=== PATIENT | female | born 1950 | race Caucasian/White ===

== ENCOUNTER 2019-10-13 14:04 | Outpatient (CLI) | payer MEDICARE, SELFPAY ==
--- NOTE | ~2019-10-13 | MM_ITS ---
EXAMINATION: MM screening [facility] BI w milan HISTORY: Screening mammogram TECHNIQUE: Craniocaudal and mediolateral oblique 3-D tomosynthesis images were obtained and synthetic 2-D images were generated. CAD analysis was submitted and interpreted. COMPARISON: 10/07/2018, 09/10/2017, 03/26/2007 BREAST PARENCHYMAL COMPOSITION: There are scattered areas of fibroglandular density. FINDINGS: There is no evidence of suspicious mass, calcification, or architectural distortion to sugg est malignancy in either breast. There has been no suspicious interval change. IMPRESSION: 1. No mammographic evidence of malignancy. 2. Recommend routine screening mammography in one year. BI-RADS Category 1: Negative Reviewed, dictated and finalized at location A.
== END 2019-10-13 14:05 | disposition home or self-care (01) ==
LOC: ANHIMG 14:09
PROVIDERS: PCP Family Medicine; Visit Provider Family Medicine
DX: Z12.31 Encounter for screening mammogram for malignant neoplasm of breast (principal)
CPT/HCPCS: 77063; 77067

== ENCOUNTER 2019-11-16 14:48 | Outpatient (RCR) | payer MEDICARE, SELFPAY ==
--- NOTE | 2019-11-16 16:07 | PTOPEVAL ---
PHYSICAL THERAPY EVALUATION AND PLAN OF CARE 11-16-2019 The PT evaluation was completed for the diagnosis of vertigo. Treatment was given for anterior canal BPPV and education provided to her. Discussed treatment plan with Kandace. She decided to call if additional therapy is needed. She was issued the number to call if she has any questions that can be addressed on the phone. Or, to call if additional appointments for treatment is needed. Thank you for referring Kandace Cole to [facility].? The plan of treatment is 0-2?x/week for 4 weeks, with re-assessment and treatment of her vestibular system as indicated. Please review, sign, date and return this plan of care MARLEE. I agree with and certify that the following plan of care is medically necessary. Referring Physician Date Attending Provider: Jon Alonzo NP *PT Outpatient Evaluation Start: 11/16/19 15:08 Document 11/16/19 15:00 DREA (Rec: 11/16/19 16:07 DREA [id number]) Therapy Assessment Status Assessment Status Assessment Status Evaluation Outpatient Past Medical History Past Medical History Source of Past Medical History Patient Neurological History Hx Migraine Yes: since Botox injections 2 yr ago, have decr & only had 1 Cardiovascular History Hx Hypertension Yes: meds Hx Other Cardiac Disorders Yes: monitoring enlarged heart Respiratory History Hx Other Respiratory Disorders Yes: seasonal allergies-grass, trees, mold Gastrointestinal History Hx Other Gastrointestinal Disorders Yes: Ferrell's esophagus disease Genitourinary History Hx Genitourinary Disorders No Significant History Musculoskeletal History Hx Orthopedic Surgery Yes: lumbar discectomy; neck disc replace-collpase Hx Other Musculoskeletal Disorders Yes: neck pain with radicular pain into B hands-to see neurosurgeon,Danie johnson cuff s Hematological History Hx Hematological Disorders No Significant History Endocrine History Hx Diabetes Yes: meds Hx Hyperthyroidism Yes: meds HEENT History Hx Glaucoma Yes: controlled Hx Other HEENT Disorders Yes: bifocals, last eye exam few months ago-vision [place] Reproductive History Hx Hysterectomy Yes Other History Hx Other Surgeries Yes: B carpal tunnel surg R 2x /L 3x;R eye surg for blood vessel blockage Evaluation Information Problem Diagnosis vertigo Onset 10-23- Prior Level of Function Activity Level (Last 3 Months) Occupation not working outside of home Hand Dominance Right Cooking Yes Cleaning Yes Laundry
--- NOTE | 2019-12-22 13:25 | PCPTNOTE ---
PHYSICAL THERAPY DISCHARGE 12-22-2019 Attending Provider: Jon Alonzo NP Patient:Kandace Cole Date of :1950 Kandace has not returned for any further treatments since the PT evaluation on 11/16/2019 for vertigo and the treatment for BPPV. Therefore she will be discharged at this time. The goals were not assessed. [facility]. Please review, sign, date and return this discharge summary MARLEE. I have been updated about the patient's current status and I agree with discharge from the above service at this time. Referring Physician Date
== END 2019-12-22 14:06 | disposition home or self-care (01) ==
LOC: ANHPT 14:48
PROVIDERS: PCP Family Medicine
DX: R42 Dizziness and giddiness (principal)
CPT/HCPCS: 97161

== ENCOUNTER 2020-04-27 14:30 | Outpatient (RCR) | payer MEDICARE, SELFPAY ==
[2020-02-04 09:32] VITALS: BMI 32.0
[2020-02-04 09:33] VITALS: BMI 32.0
== END 2020-05-03 13:15 | disposition home or self-care (01) ==
LOC: ANHDMC 14:30
PROVIDERS: PCP Family Medicine; Visit Provider Nurse Practitioner Family
DX: E11.9 Type 2 diabetes mellitus without complications (principal); Z71.89 Other specified counseling; Z71.3 Dietary counseling and surveillance
CPT/HCPCS: 97802; G0108; G0109

== ENCOUNTER 2020-07-14 09:15 | Outpatient (RCR) | payer MEDICARE, SELFPAY ==
[2020-05-12 12:41] VITALS: BMI 31.4
[2020-05-12 12:43] VITALS: BMI 31.4
== END 2020-07-14 10:18 | disposition home or self-care (01) ==
LOC: ANHDMC 09:15
PROVIDERS: PCP Family Medicine; Visit Provider Nurse Practitioner Family
DX: E11.9 Type 2 diabetes mellitus without complications (principal); Z71.3 Dietary counseling and surveillance; Z71.89 Other specified counseling
CPT/HCPCS: 97803; G0108

== ENCOUNTER 2020-10-14 08:56 | Outpatient (CLI) | payer MEDICARE, SELFPAY ==
--- NOTE | ~2020-10-14 | MM_ITS ---
EXAMINATION: MM screening [facility] BI w milan HISTORY: Screening mammogram TECHNIQUE: Craniocaudal and mediolateral oblique 3-D tomosynthesis images were obtained and synthetic 2-D images were generated. CAD analysis was submitted and interpreted. COMPARISON: 10/23/2019, 10/17/2018, 09/10/2017 BREAST PARENCHYMAL COMPOSITION: There are scattered areas of fibroglandular density. FINDINGS: There is no evidence of suspicious mass, calcification, or architectural distortion to sugg est malignancy in either breast. There has been no suspicious interval change. IMPRESSION: 1. No mammographic evidence of malignancy. 2. Recommend routine screening mammography in one year. BI-RADS Category 1: Negative Reviewed, dictated and finalized at location A.
== END 2020-10-14 08:57 | disposition home or self-care (01) ==
LOC: ANHIMG 08:59
PROVIDERS: PCP Family Medicine; Visit Provider Family Medicine
DX: Z12.31 Encounter for screening mammogram for malignant neoplasm of breast (principal)
CPT/HCPCS: 77063; 77067

== ENCOUNTER 2020-12-24 15:43 | Emergency (ER) | payer MEDICARE, SELFPAY ==
--- NOTE | 2020-12-24 15:50 | ED.GENADULT ---
HPI - General Adult General Chief complaint: Headache Stated complaint: SWAN Time Seen by Provider: 12/24/20 15:50 Source: patient Mode of arrival: ambulatory Limitations: no limitations History of Present Illness HPI narrative: 70-year-old female patient presents to the [facility] with complaints of a headache and dizziness. Patient states that she does have history of vertigo and typically when she starts getting symptoms of her vertigo she does her nasal spray and her exercises that she has been told to do and it usually takes it away. Patient states this dizziness is now been going on for about 3 days as well as headache that started 2 days ago. Patient states she did take some Tylenol today about noon. Patient states that she has had a lot of sensitivity to the light as well as continue to feel dizziness feels like the room is spinning and states that she has been having trouble walking. Patient states she has not had a migraine since she received Botox over 3 years ago. Related Data Allergies Allergy/AdvReac Type Severity Reaction Status Date / Time bethanechol Allergy Mild ITESTINAL Unverified 10/22/08 15:16 PROBLEMS Sulfa (Sulfonamide Allergy Mild HIVES Unverified 10/22/08 15:16 Antibiotics) sulfamethoxazole Allergy Mild HIVES Unverified 10/22/08 15:16 cyclobenzaprine Allergy Unknown Verified 08/07/11 14:13 egg Allergy Unknown Verified 08/07/11 14:14 fluoxetine Allergy Unknown Verified 08/07/11 14:13 latex Allergy Unknown Verified 08/07/11 14:12 meperidine Allergy Unknown Verified 08/07/11 14:12 naproxen Allergy Unknown Verified 08/07/11 14:12 sulfamethizole Allergy Unknown Verified 08/07/11 14:12 trimethoprim Allergy Unknown Verified 08/07/11 14:12 ADHESIVE TAPE Allergy Mild Uncoded 02/09/03 13:58 FLU SHOT Allergy Mild HIVES Uncoded 09/25/06 10:11 SMALL POX VACCINE Allergy Mild HIVES Uncoded 09/25/06 10:11 EGGS Allergy Unknown Uncoded 09/22/02 11:42 SEE NSG NOTES Allergy Unknown Uncoded 02/09/03 13:58 Review of Systems Review of Systems: CONSTITUTIONAL: Denies fever, chills, or sweats. EYES: Denies visual changes, redness, or discharge. Positive photophobia ENT: Denies rhinorrhea, congestion, sore throat, or otalgia. CARDIOVASCULAR: Denies chest pain, palpitations, or edema. RESPIRATORY: Denies cough or dyspnea. GASTROINTESTINAL: Denies abdominal pain, nausea, vomiting, or diarrhea. GENITOURINARY: Denies dysuria or hematuria. SKIN: Denies rash or itching. MUSCULOSKELETAL: Denies back pain, joint pain, or myalgia. NEUROLOGIC: Positive headache and dizziness, denies numbness, positive generalized weakness. PSYCHIATRIC: Denies anxiety or depression. [facility] Past Medical History Medical History (Updated 12/24/20 @ 16:09 by ODILON Soriano) Anemia Arthritis Ferrell's esophagus Cataracts, bilateral Degenerative disc disease Cervical neck fusion in 2007 Depression Glaucoma Heart murmur Hypertension Migraines Last migraine 2007 Musculoskeletal disorder Bilateral rotator cuff surgery, bilateral carpal tunnel, arthritis, left thumb subluxed Pneumonia Raynaud's disease Surgical History Surgical History (Updated 12/24/20 @ 15:54 by ODILON Soriano) History of appendectomy History of orthopedic surgery Lower back disc removal 1986, repair of spinal leak 1987 History of tonsillectomy Family History Family History Sibling Family history of thyroid disease Family history of obesity Family history of osteoporosis Family history of migraine headaches Hypertension Family history of elevated blood lipids Family history of alcoholism Family history of diabetes mellitus in first degree relative Family history of coronary artery disease Father Family history of osteoporosis Family history of lung cancer Mother Family history of osteoarthritis Family history of malignant melanoma Family history of atrial fibrillation
[2020-12-24 15:55] VITALS: BP 123/67; PULSE 73; RESP 16; TEMP 36; O2SAT 100
[2020-12-24 16:05] VITALS: BP 123/67; PULSE 73; RESP 16; TEMP 36; O2SAT 100
== END 2020-12-24 16:12 | disposition short-term general hospital (02) ==
PROVIDERS: Emergency Provider Nurse Practitioner Family
DX: R42 Dizziness and giddiness (principal); R51.9 Headache, unspecified; I10 Essential (primary) hypertension
CPT/HCPCS: 99213; G0463

== ENCOUNTER 2020-12-24 16:24 | Emergency (ER) | payer MEDICARE, SELFPAY ==
[2020-12-24] VITALS (15 sets, daily range): BP systolic 121–158; BP diastolic 53–94; PULSE 57–91; RESP 12–22; TEMP 36; O2SAT 93–100
--- NOTE | 2020-12-24 16:31 | ECG_ITS ---
Measurements Intervals [place] Rate: 70 P: 34 LA: 185 QRS: 18 QRSD: 85 T: 61 QT: 361 QTc: 391 Interpretive Statements SINUS RHYTHM LOW QRS VOLTAGE IN PRECORDIAL LEADS BASELINE ARTIFACT- I, II, III, AVR, AVL, AVF BORDERLINE ECG Electronically Signed On 12-24-2020 18:45:12 CDT by David Nash D.O.
[2020-12-24 16:43] LABS: Basophils Percent Auto 0.4 % (0.2-1.2); Eosinophils Absolute Auto 0.2 K/mm3 (0-0.3); Hematocrit 33.7 % (37.0-47.0); Hemoglobin 11.1 g/dL (12.0-15.0); Immature Granulocyte Absolute 0.02 K/mm3 (0.00-0.031); Immature Granulocyte Percent A 0.3 % (0-0.5); Lymphocytes Absolute Auto 1.41 K/mm3 (0.9-3.2); Lymphocytes Percent Auto 17.7 % (18.3-44.2); Mean Corpuscular HGB Conc 32.9 g/dl (32-36); Mean Corpuscular Hemoglobin 29.4 pg (26-34); Mean Corpuscular Volume 89.4 fl (80-100); Mean Platelet Volume 9.3 fl (7.4-10.4); Monocytes Absolute Auto 0.6 K/mm3 (0.1-0.6); Monocytes Percent Auto 7.8 % (2.6-8.5); Neutrophils Absolute Auto 5.6 K/mm3 (1.3-6.7); Neutrophils Percent Auto 70.8 % (45.5-73.1); Platelet Count Result 325 k/mm3 (150-375); Red Blood Count 3.77 M/mm3 (4.2-5.4)
[2020-12-24 16:50] LABS: Anion Gap 9 mmol/L (8-16); Blood Urea Nitrogen 39 mg/dL (7-17); Calcium 9.7 mg/dL (8.4-10.2); Carbon Dioxide 26 mmol/L (22-30); Chloride 96 mmol/L (98-107); Estimated CRCL calculation 17 ml/min; Estimated Glomerular Filt Rate 20; Glucose 95 mg/dL (65-110); Potassium 5.9 mmol/L (3.4-5.0); Sodium 131 mmol/L (137-145)
[2020-12-24] MEDS: MECLIZINE HCL 25 MG TABLET PO (21:01)
[2020-12-24] MEDS: SODIUM CHLORIDE 0.9% IV 1,000 ML 999 ML IV CONT (21:01)
--- NOTE | 2020-12-24 22:23 | ED.DIZZY ---
HPI - Dizziness General Chief Complaint: Dizziness Stated Complaint: HEADACHE, DIZZINESS Time Seen by Provider: 12/24/20 20:21 History of Present Illness HPI Narrative: Patient is a 70-year-old female with history of vertigo who presents ER with increased dizziness. Worsening over the last couple days. With positional change she will have a spinning dizziness. She has been using Flonase without improvement. She has tried home exercises without improvement. No fevers or chills or sweats. Reports decreased p.o. intake today due to her feeling nauseated. No falls or trauma. Related Data Home Medications Medication Instructions Recorded Confirmed bupropion HCl [Wellbutrin] 100 mg PO BID 12/24/20 12/24/20 carvedilol [Coreg] 6.25 mg PO BID 12/24/20 12/24/20 cholecalciferol (vitamin D3) 50 mcg PO BID 12/24/20 12/24/20 [Vitamin D3] exenatide microspheres [Bydureon] 2 mg SUBCUT WEEKLY 12/24/20 12/24/20 furosemide [Lasix] 20 mg PO DAILY 12/24/20 12/24/20 latanoprost [Xalatan] 1 drp EACH EYE DAILY 12/24/20 12/24/20 lisinopril [Zestril] 20 mg PO DAILY 12/24/20 12/24/20 pantoprazole [Protonix] 40 mg PO QAM 12/24/20 12/24/20 pravastatin [Pravachol] 40 mg PO DAILY 12/24/20 12/24/20 quetiapine [Seroquel] 200 mg PO HS 12/24/20 12/24/20 vit C,Z-To-uykjc-lutein-zeaxan 1 tablet PO BID 12/24/20 12/24/20 [PreserVision AREDS-2] Allergies Allergy/AdvReac Type Severity Reaction Status Date / Time bethanechol Allergy Mild ITESTINAL Verified 12/24/20 16:16 PROBLEMS Sulfa (Sulfonamide Allergy Mild HIVES Verified 12/24/20 16:16 Antibiotics) sulfamethoxazole Allergy Mild HIVES Verified 12/24/20 16:16 cyclobenzaprine Allergy Unknown Verified 12/24/20 16:16 egg Allergy Unknown Verified 12/24/20 16:16 fluoxetine Allergy Unknown Verified 12/24/20 16:16 latex Allergy Unknown Verified 12/24/20 16:16 meperidine Allergy Unknown Verified 12/24/20 16:16 naproxen Allergy Unknown Verified 12/24/20 16:16 sulfamethizole Allergy Unknown Verified 12/24/20 16:16 trimethoprim Allergy Unknown Verified 08/07/11 14:12 ADHESIVE TAPE Allergy Mild Uncoded 02/09/03 13:58 FLU SHOT Allergy Mild HIVES Uncoded 09/25/06 10:11 SMALL POX VACCINE Allergy Mild HIVES Uncoded 09/25/06 10:11 EGGS Allergy Unknown Uncoded 09/22/02 11:42 SEE NSG NOTES Allergy Unknown Uncoded 02/09/03 13:58 Review of Systems Review of Systems: All systems reviewed & are unremarkable except as noted in HPI and below Constitutional: Constitutional: Denies chills, Denies fever(s) and Denies weakness ENT: Reports dizziness, Denies nasal congestion and Denies sore throat Respiratory: Respiratory: Denies cough and Denies dyspnea Gastrointestinal: Gastrointestinal: Denies abdominal pain, Reports nausea and Denies vomiting Neurologic: Reports headache(s), Denies focal weakness and Denies numbness PMFSH Past Medical History Medical History (Updated 12/24/20 @ 23:50 by Monster Arzola MD) Anemia Arthritis Ferrell's esophagus Cataracts, bilateral Degenerative disc disease Cervical neck fusion in 2006 Depression Glaucoma Heart murmur Hypertension Migraines Last migraine 2007 Musculoskeletal disorder Bilateral rotator cuff surgery, bilateral carpal tunnel, arthritis, left thumb subluxed Pneumonia Raynaud's disease Surgical History Surgical History (Updated 12/24/20 @ 15:54 by ODILON Soriano) History of appendectomy History of orthopedic surgery Lower back disc removal 1986, repair of spinal leak 1988 History of tonsillectomy Family History Family History Sibling Family history of thyroid disease Family history of obesity Family history of osteoporosis Family history of migraine headaches Hypertension Family history of elevated blood lipids Family history of alcoholism Family history of diabetes mellitus in first degree relative Family history of coronary artery disease Father Family his
--- NOTE | 2020-12-24 23:43 | PC.NURSE ---
Patient ambulated to the bathroom and back to her room with a steady gait. Patient states she does feel much better. ERP notified.
[2020-12-25 00:10] VITALS: BP 133/64; PULSE 81; RESP 20; TEMP 36.7; O2SAT 100
== END 2020-12-25 00:11 | disposition home or self-care (01) ==
PROVIDERS: Emergency Medicine; Emergency Provider Emergency Medicine; PCP Family Medicine
DX: H81.10 Benign paroxysmal vertigo, unspecified ear (principal); I10 Essential (primary) hypertension; I73.00 Raynaud's syndrome without gangrene; D64.9 Anemia, unspecified; K22.70 Barrett's esophagus without dysplasia; M19.90 Unspecified osteoarthritis, unspecified site; F32.9 Major depressive disorder, single episode, unspecified; Z87.01 Personal history of pneumonia (recurrent)
CPT/HCPCS: 36415; 80048; 85025; 93005; 96360; 96361; 99284; A9270; J7030

== ENCOUNTER 2021-09-07 16:15 | Outpatient (CLI) | payer MEDICARE, SELFPAY ==
--- NOTE | ~2021-09-07 | MR_ITS ---
EXAMINATION: MR cervical spine wo con DATE: 09/07/2021 17:05 INDICATION: Degeneration of cervical intervertebral disc. TECHNIQUE: Magnetic resonance imaging (MRI) of the cervical spine was performed without intravenous c ontrast. Sequences included sagittal T2-weighted FSE, sagittal T2-weighted FS FSE, sagittal T1-weight ed FSE, axial MERGE, and axial T2-weighted FSE. COMPARISON: Cervical spine MRI 06/04/2006 FINDINGS: There is 3 mm anterolisthesis of C3 on C4. There are changes of anterior and posterior fusi on procedures at C4-C5 and C5-C6 with interbody devices. Vertebral body heights are normal. There is severely decreased disc height at C3-C4 with interbody fusion. There is moderately decreased disc hei ght at C6-C7 and severely decreased disc height at C7-T1. There is 2 mm anterolisthesis of C7 on T1. The spinal cord signal intensity is normal. The following disc levels are specifically discussed: C2-C3: The disc does not extend beyond the endplate margin. There is no uncovertebral joint osteoarth ritis. There is severe right and moderate left facet joint osteoarthritis. There is mild right neural foraminal stenosis. There is no central canal stenosis. C3-C4: There is moderate bilateral uncovertebral joint hypertrophy. There is ankylosis of the facet j oints with severe hypertrophy. There is mild bilateral neural foraminal stenosis. There is mild centr al canal stenosis with ventral indentation of the spinal cord. C4-C5: There is mild bilateral uncovertebral joint hypertrophy. There is mild right facet joint osteo arthritis. There is ankylosis of left facet joint with mild hypertrophy. There is mild left neural fo raminal stenosis. There is no central canal stenosis. C5-C6: There is anterior displacement of the interbody device from its expected position. There is ex tensive endplate remodeling and hypertrophy. There is no interbody fusion. There is severe bilateral uncovertebral joint osteoarthritis. There is moderate bilateral facet joint osteoarthritis. There is severe right and moderate left neural foraminal stenosis. There is severe central canal stenosis with ventral and dorsal indentation of the spinal cord. C6-C7: There is a left central extrusion. There is ankylosis of the uncovertebral joints with mild hy pertrophy. There is mild bilateral facet joint osteoarthritis. There is no neural foraminal stenosis. There is mild central canal stenosis with ventral indentation of spinal cord. C7-T1: There is a left central extrusion. There is moderate bilateral uncovertebral joint osteoarthri tis. There is mild left facet joint osteoarthritis. There is ankylosis of right facet joint with mode rate hypertrophy. There is no neural foraminal stenosis. There is mild central canal stenosis with ve ntral indentation of the spinal cord. IMPRESSION: 1. Anterior fusion procedure at C5-C6 without interbody fusion with abnormal anterior positioning of the interbody device and endplate hypertrophy. 2. Healed anterior fusion procedure at C4-C5. Anterior fusion at C3-C4 and C6-C7. 3. Severe cervical spondylosis. Reviewed, dictated and finalized at location A. IMPRESSION: 1. Anterior fusion procedure at C5-C6 without interbody fusion with abnormal an terior positioning of the interbody device and endplate hypertrophy. 2. Healed anterior fusion procedure at C4-C5. Anterior fusion at C3-C4 and C6-C 7. 3. Severe cervical spondylosis.
== END 2021-09-07 16:16 | disposition home or self-care (01) ==
PROVIDERS: PCP Family Medicine; Visit Provider Family Medicine
DX: M50.30 Other cervical disc degeneration, unspecified cervical region (principal); M47.892 Other spondylosis, cervical region; Z98.1 Arthrodesis status
CPT/HCPCS: 72141

== ENCOUNTER 2022-02-14 12:26 | Outpatient (CLI) | payer MEDICARE, SELFPAY ==
--- NOTE | ~2022-02-14 | MM_ITS ---
EXAMINATION: MM screening ac BI w milan HISTORY: Screening TECHNIQUE: Craniocaudal and mediolateral oblique 3-D tomosynthesis images were obtained and synthetic 2-D images were generated. CAD analysis was submitted and interpreted. COMPARISON: Comparison to multiple prior studies sequentially, with oldest reviewed study dated 09/10. BREAST PARENCHYMAL COMPOSITION: There are scattered areas of fibroglandular density. FINDINGS: There is no evidence of suspicious mass, calcification, or architectural distortion to sugg est malignancy in either breast. There has been no suspicious interval change. IMPRESSION: 1. No mammographic evidence of malignancy. 2. Recommend routine screening mammography in one year. BI-RADS Category 1: Negative Reviewed, dictated and finalized at location A. 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
== END 2022-02-14 12:27 | disposition home or self-care (01) ==
LOC: ANHIMG 12:28
PROVIDERS: PCP Family Medicine; Visit Provider Family Medicine
DX: Z12.31 Encounter for screening mammogram for malignant neoplasm of breast (principal)
CPT/HCPCS: 77063; 77067

== ENCOUNTER 2022-02-14 13:16 | Emergency (ER) | payer MEDICARE, SELFPAY ==
--- NOTE | ~2022-02-14 | CT_ITS ---
EXAMINATION: CT cervical spine wo con DATE: 02/14/2022 13:58 INDICATION: Fall. Head and neck injury. Past neck surgery. TECHNIQUE: Computed tomography (CT) of the cervical spine was performed without intravenous contrast. Automated exposure control and iterative reconstruction technique were employed. Exam dose: 256.93 mGy-cm total exam DLP. COMPARISON: 09/17/2021 MR cervical spine FINDINGS: C1 and C2 are normally aligned and the odontoid process is intact except for 4 mm circumscr ibed lucency along the posterior base of the dens. There is 3 mm anterolisthesis and severe degenerative disc disease at C3-4. There is fusion at C4-5. There is very severe degenerative disc disease with prominent circumscribed lucent spaces of the appo sing C5 and C6 vertebral bodies, with sclerotic margins, consistent with chronic process. There is severe degenerative disc disease at C6-7 and C7-T1. There is 2 mm anterolisthesis and moderately prominent degenerative disc disease at T1-T2. There is fusion at the apophyseal joints on the right at C3-4 and C7-T1 and on the left at C3-4-5, wi th prominent degenerative change at the remaining apophyseal joints. No recent fracture or dislocation is noted otherwise. IMPRESSION: Severe cervical spondylosis; no recent fracture is evident Reviewed, dictated and finalized at Location A. Reviewed, dictated and finalized at location A. [employer]
--- NOTE | ~2022-02-14 | CT_ITS ---
EXAMINATION: CT facial bones wo con DATE: 02/14/2022 17:03 INDICATION: Right periorbital laceration post fall with head injury TECHNIQUE: Computed tomography (CT) of the facial bones and maxillofacial region was performed withou t intravenous contrast. Coronal reconstructions were obtained. Automated exposure control and iterati ve reconstruction technique were employed. The dose-length product was 261.52 mGy-cm. COMPARISON: None. FINDINGS: Laceration and small subcutaneous hematoma along the superolateral right periorbital rim. Orbits appe ar normal with changes of bilateral intraocular lens replacement. Nondisplaced fracture of the right zygomatic arch and of the anterior and lateral éprez of the right maxillary sinus with minimal gas in the soft tissues along the lateral margin of the right maxillary sinus wall. There is a nondisplaced fracture along the posterior lateral wall of the right orbit can be seen which includes communicatio n to the anterior right middle cranial fossa. There is likely full extension of the fracture which ca nnot be identified. Findings would be consistent with a zygomaticomaxillary complex fracture (tripod fracture) also typically involving the inferior wall of the orbit although is present as is also occu lt. The nasal bones, midline nasal septum, pérez of the left orbits, mandible and left zygomatic arch are intact. Mild mucoperiosteal thickening at the bilateral ethmoid and sphenoid sinuses. Near compl ete opacification of the left maxillary sinus with convex anterior margin of the anterolateral fluid attenuation likely mucous or mucous retention cyst. Mastoid air cells and middle ear cavities are cameron ar. Atherosclerotic calcification at the right carotid bulbs. IMPRESSION: 1. Right zygomaticomaxillary complex fracture (tripod fracture) with nondisplaced fractures at the ri ght zygomatic arch and along the anterior and lateral pérez of the right maxillary sinus. Additional portion of a fracture involving the medial wall of the posterior medial wall of the right orbit can b e seen but likely additional further extension of the fractures or typical fracture involving the inf erior wall of the left orbit cannot be definitively identified. The fracture the posterior lateral ri ght orbital wall appears to communicate with the anterior aspect of the right middle cranial fossa. N o evident associated intracranial hematoma or gas. 2. Laceration and small subcutaneous hematoma at the right superolateral rim of the right orbit. Reviewed, dictated and finalized at location B. 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 Right zygomaticomaxillary complex fracture (tripod fracture) with nondisplac ed fractures at the right zygomatic arch and along the anterior and lateral wal ls of the right maxillary sinus. Additional portion of a fracture involving the medial wall of the posterior medial wall of the right orbit can be seen but kwame maxwell additional further extension of the fractures or typical fracture involvin g the inferior wall of the left orbit cannot be definitively identified. The fr acture the posterior lateral right orbital wall appears to communicate with the anterior aspect of the right middle cranial fossa. No evident associated intra cranial hematoma or gas. 2. Laceration and small subcutaneous hematoma at the right superolateral rim of the right orbit.
--- NOTE | ~2022-02-14 | CT_ITS ---
EXAMINATION: CT brain wo con DATE: 02/14/2022 13:58 INDICATION: Fall. Lightheadedness. Struck head on curb. Laceration. TECHNIQUE: Computed tomography (CT) of the head was performed without intravenous contrast. The mA wa s adjusted according to patient size. Iterative reconstruction technique was employed. Exam dose: 60 5.33 mGy-cm total exam DLP. COMPARISON: None FINDINGS: No intracranial mass lesion or hemorrhage or cerebrovascular accident. No midline shift or mass effect. Normal ventricular size. No subdural or epidural hematoma. There is subcutaneous emphysema along the outer aspect of the posterior lateral wall of the right max illary sinus. Occasional opacified right ethmoid air cells. There is nearly complete opacification of the left maxillary sinus. The paranasal sinuses and mastoid air cells are otherwise normally developed and aerated. No fracture or bone destruction of the cranial vault. IMPRESSION: Mild subcutaneous emphysema along the posterolateral aspect of the outer wall of the rig ht maxillary sinus, suggesting possible fracture. Consider CT facial bones Nearly completely opacified left maxillary sinus and occasional opacified right ethmoid air cells No skull fracture or acute intracranial finding is noted Reviewed, dictated and finalized at Location A. Reviewed, dictated and finalized at location A. MONIUM NITRATE NEUTRALIZER IMPRESSION: Mild subcutaneous emphysema along the posterolateral aspect of the outer wall of the right maxillary sinus, suggesting possible fracture. Conside r CT facial bones Nearly completely opacified left maxillary sinus and occasional opacified right ethmoid air cells No skull fracture or acute intracranial finding is noted
[2022-02-14 13:29] VITALS: BP 123/62; PULSE 76; RESP 16; TEMP 36.8; O2SAT 96
--- NOTE | 2022-02-14 13:38 | ED.HEATRA ---
HPI - Head Injury General Chief complaint: Head Injury <Jose Luis Srivastava MD - Last Filed: 02/14/22 19:32> Stated complaint: fall, head injury <Jose Luis Srivastava MD - Last Filed: 02/14/22 19:32> Time Seen by Provider: 02/14/22 13:28 <Jose Luis Srivastava MD - Last Filed: 02/14/22 19:32> Source: patient and EMS <Jose Luis Srivastava MD - Last Filed: 02/14/22 19:32> Mode of arrival: EMS <Jose Luis Srivastava MD - Last Filed: 02/14/22 19:32> Limitations: no limitations <Jose Luis Srivastava MD - Last Filed: 02/14/22 19:32> History of Present Illness HPI Narrative: Patient is 72 years old white female came by ambulance to the emergency room because of a fall. Patient just had a routine mammogram completed and got lightheaded headed and fell striking head on the curb. Patient denies loss of consciousness, laceration right eyebrow, patient had history of a history of benign lightheaded from a bad vertebrae in her neck that had been replaced in 2006 with a cadaver bone <Jose Luis Srivastava MD - Last Filed: 02/14/22 19:32> Related Data Home medications: Home Medications Medication Instructions Recorded Confirmed bupropion HCl 100 mg tablet 100 mg PO BID 12/24/20 12/24/20 carvedilol 6.25 mg tablet (Coreg) 6.25 mg PO BID 12/24/20 12/24/20 cholecalciferol (vitamin D3) 50 50 mcg PO BID 12/24/20 12/24/20 mcg (2,000 unit) tablet (Vitamin D3) exenatide microspheres 2 mg 2 mg subcut WEEKLY 12/24/20 12/24/20 subcutaneous extended release suspension furosemide 20 mg tablet (Lasix) 20 mg PO DAILY 12/24/20 12/24/20 latanoprost 0.005 % eye drops 1 drp EACH EYE DAILY 12/24/20 12/24/20 (Xalatan) lisinopril 20 mg tablet (Zestril) 20 mg PO DAILY 12/24/20 12/24/20 pantoprazole 40 mg tablet,delayed 40 mg PO QAM 12/24/20 12/24/20 release (Protonix) pravastatin 40 mg tablet 40 mg PO DAILY 12/24/20 12/24/20 quetiapine 200 mg tablet (Seroquel) 200 mg PO HS 12/24/20 12/24/20 vit C 250 mg-vit E 90 mg-zinc 40 1 tablet PO BID 12/24/20 12/24/20 mg-copper 1 nd-qubxsn-svltpe capsule (PreserVision AREDS-2) <Jose Luis Srivastava MD - Last Filed: 02/14/22 19:32> Allergies/Adverse reactions: Allergies Allergy/AdvReac Type Severity Reaction Status Date / Time bethanechol Allergy Mild ITESTINAL Verified 02/14/22 13:46 PROBLEMS Sulfa (Sulfonamide Allergy Mild HIVES Verified 02/14/22 13:46 Antibiotics) sulfamethoxazole Allergy Mild HIVES Verified 02/14/22 13:46 cyclobenzaprine Allergy Unknown Unknown Verified 02/14/22 13:46 fluoxetine Allergy Unknown Unknown Verified 02/14/22 13:46 latex Allergy Unknown Unknown Verified 02/14/22 13:46 meperidine Allergy Unknown Unknown Verified 02/14/22 13:46 naproxen Allergy Unknown Unknown Verified 02/14/22 13:46 trimethoprim Allergy Unknown Unknown Verified 02/14/22 13:46 ADHESIVE TAPE Allergy Mild Unknown Uncoded 02/14/22 13:46 FLU SHOT Allergy Mild HIVES Uncoded 09/25/06 10:11 SMALL POX VACCINE Allergy Mild HIVES Uncoded 09/25/06 10:11 EGGS Allergy Unknown Unknown Uncoded 02/14/22 13:46 SEE NSG NOTES Allergy Unknown Unknown Uncoded 02/14/22 13:46 <Jose Luis Srivastava MD - Last Filed: 02/14/22 19:32> Review of Systems Review of Systems: All systems reviewed & are unremarkable except as noted in HPI and below <Jose Luis Srivastava MD - Last Filed: 02/14/22 19:32> [facility] Past Medical History Medical History: Medical History Anemia Arthritis Ferrell's esophagus Cataracts, bilateral Degenerative disc disease Cervical neck fusion in 2006 Depression Glaucoma Heart murmur Hypertension Migraines Last migraine 2007 Musculoskeletal disorder Bilateral rotator cuff surgery, bilateral carpal tunnel, arthritis, left thumb subluxed Pneumonia Raynaud's disease <Jose Luis Srivastava MD - Last Filed: 02/14/22 19:32> Surgical History Surgical History: Surgical History History of obey
[2022-02-14 21:27] VITALS: BP 120/88; PULSE 88; RESP 18; O2SAT 98
== END 2022-02-14 21:29 | disposition short-term general hospital (02) ==
PROVIDERS: Emergency Provider Emergency Medicine; PCP Family Medicine
DX: S02.40EA Zygomatic fracture, right side, initial encounter for closed fracture (principal); S02.40CA Maxillary fracture, right side, initial encounter for closed fracture; S02.85XA Fracture of orbit, unspecified, initial encounter for closed fracture; S01.111A Laceration without foreign body of right eyelid and periocular area, initial encounter; M47.812 Spondylosis without myelopathy or radiculopathy, cervical region; D64.9 Anemia, unspecified; M19.90 Unspecified osteoarthritis, unspecified site; F32.9 Major depressive disorder, single episode, unspecified; W19.XXXA Unspecified fall, initial encounter
CPT/HCPCS: 12011; 70450; 70486; 72125; 99284; 99285

== ENCOUNTER 2022-06-29 13:45 | Outpatient (NON) | payer MEDICARE, SELFPAY ==
[2022-06-29 14:42] LABS: Basophils Absolute Auto 0.1 K/mm3 (0.0-0.1); Basophils Percent Auto 0.7 % (0.2-1.2); Eosinophils Absolute Auto 0.4 K/mm3 (0-0.3); Eosinophils Percent Auto 5.5 % (0-4.4); Hematocrit 27.7 % (37.0-47.0); Hemoglobin 8.5 g/dL (12.0-15.0); Immature Granulocyte Absolute 0.04 K/mm3 (0.00-0.031); Immature Granulocyte Percent A 0.6 % (0-0.5); Lymphocytes Absolute Auto 0.75 K/mm3 (0.9-3.2); Lymphocytes Percent Auto 10.5 % (18.3-44.2); Mean Corpuscular HGB Conc 30.7 g/dl (32-36); Mean Corpuscular Hemoglobin 30.4 pg (26-34); Mean Corpuscular Volume 98.9 fl (80-100); Monocytes Absolute Auto 0.8 K/mm3 (0.1-0.6); Monocytes Percent Auto 10.7 % (2.6-8.5); Neutrophils Absolute Auto 5.1 K/mm3 (1.3-6.7); Platelet Count Result 321 k/mm3 (150-375); White Blood Count 7.1 K/mm3 (4.5-10.0)
[2022-06-29 14:58] LABS: Anion Gap 5 mmol/L (8-16); Blood Urea Nitrogen 19 mg/dL (7-17); Calcium 8.7 mg/dL (8.4-10.2); Carbon Dioxide 29 mmol/L (22-30); Chloride 99 mmol/L (98-107); Estimated Glomerular Filt Rate 44; Glucose 88 mg/dL (65-110); Potassium 5.1 mmol/L (3.4-5.0); Sodium 133 mmol/L (137-145)
== END 2022-06-29 13:46 | disposition home or self-care (01) ==
PROVIDERS: Visit Provider Family Medicine
DX: E87.1 Hypo-osmolality and hyponatremia (principal)
CPT/HCPCS: 80048; 85025

== ENCOUNTER 2022-11-01 13:33 | Outpatient (CLI) | payer MEDICARE, SELFPAY ==
--- NOTE | ~2022-11-01 | US_ITS ---
EXAMINATION: US carotid duplex BI DATE: 11/01/2022 14:45 INDICATION: Dizziness TECHNIQUE: Grayscale, color Doppler, and pulsed Doppler images of the cervical carotid arteries were obtained. The degree of vessel stenosis is placed in one of the following categories: normal, <50%, 5 0-69%, >=70% but less than near-occlusion, near-occlusion, or total occlusion. Note that percent sten osis relative to normal distal artery lumen diameter is indirectly measured from velocity measurement s as described by Guevara, et al. Radiology 2003; [id number]:340-346. COMPARISON: None. FINDINGS: RIGHT: The right common carotid artery (CCA) peak systolic velocity (PSV) is 61 cm/s. The right internal car otid artery (ICA) PSV is 78 cm/s. The right ICA end-diastolic velocity (EDV) is 29 cm/s. The right IC A/CCA PSV ratio is 1.3. Grayscale and color Doppler images yield an estimate of <50% diameter reducti on from plaque in the ICA. The external carotid artery (ECA) PSV is 68 cm/s. There is antegrade flow in the right vertebral artery. LEFT: The left CCA PSV is 71 cm/s. The left ICA PSV is 57 cm/s. The left ICA EDV is 17 cm/s. The left ICA/C CA PSV ratio is 0.8. Grayscale and color Doppler images yield an estimate of <50% diameter reduction from plaque in the ICA. The ECA PSV is 46 cm/s. There is antegrade flow in the left vertebral artery. IMPRESSION: 1. <50% stenosis in the right internal carotid artery. 2. <50% stenosis in the left internal carotid artery. Reviewed, dictated and finalized at location A.
--- NOTE | ~2022-11-01 | CT_ITS ---
EXAMINATION: CT sinus wo con DATE: 11/01/2022 14:03 INDICATION: Chronic sinusitis. TECHNIQUE: Computed tomography (CT) of the paranasal sinuses was performed without intravenous contra st. Iterative reconstruction technique was employed. The dose-length product was 277.13 mGy-cm. COMPARISON: Maxillofacial CT 02/14/2022 FINDINGS: There is mild mucosal thickening in left frontal recess. There is mild mucosal thickening i n the ethmoid sinuses. The sphenoid sinuses are clear. Right maxillary sinus is clear. There is near complete opacification of left maxillary sinus. There are changes of left uncinectomy. The ostiomeata l units are patent. There is perforation of the nasal septum. IMPRESSION: 1. Mucosal thickening in the paranasal sinuses. Reviewed, dictated and finalized at location L.
== END 2022-11-01 13:34 | disposition home or self-care (01) ==
PROVIDERS: PCP Family Medicine; Visit Provider Otolaryngology
DX: I65.23 Occlusion and stenosis of bilateral carotid arteries (principal); J32.9 Chronic sinusitis, unspecified
CPT/HCPCS: 70486; 93880

== ENCOUNTER 2023-05-06 08:40 | Outpatient (CLI) | payer MEDICARE, SELFPAY ==
--- NOTE | ~2023-05-06 | MM_ITS ---
EXAMINATION: MM screening [facility] BI w milan HISTORY: Screening mammogram TECHNIQUE: Craniocaudal and mediolateral oblique 3-D tomosynthesis images were obtained and synthetic 2-D images were generated. CAD analysis was submitted and interpreted. COMPARISON: 02/14/2022, 10/14/2020, 10/13/2019 BREAST PARENCHYMAL COMPOSITION: There are scattered areas of fibroglandular density. FINDINGS: No suspicious mass, calcification, or architectural distortion are identified in either jacob ast to suggest malignancy. There has been no suspicious interval change. IMPRESSION: 1. No mammographic evidence of malignancy. 2. Recommend routine screening mammography in one year. BI-RADS Category 1: Negative Reviewed, dictated and finalized at location A. 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
== END 2023-05-06 08:41 | disposition home or self-care (01) ==
LOC: ANHIMG 08:42
PROVIDERS: PCP Family Medicine; Visit Provider Family Medicine
DX: Z12.31 Encounter for screening mammogram for malignant neoplasm of breast (principal)
CPT/HCPCS: 77063; 77067

== ENCOUNTER 2023-08-08 12:18 | Outpatient (CLI) | payer MEDICARE, SELFPAY ==
--- NOTE | ~2023-08-08 | XR_ITS ---
EXAMINATION: XR lumbar spine 2-3V DATE: 08/08/2023 12:39 INDICATION: Pain in left hip joint. TECHNIQUE: 3 views of lumbar spine were obtained. COMPARISON: None. FINDINGS: There is 10 degrees dextroscoliosis of lumbar spine. Vertebral body heights are normal. The re is moderately decreased disc height at L1-L2 and severely decreased disc height from L2-L3 through L5-S1. There is multilevel severe facet joint osteoarthritis. IMPRESSION: 1. Severe lumbar spondylosis. 2. Lumbar dextroscoliosis. Reviewed, dictated and finalized at location A.
--- NOTE | ~2023-08-08 | XR_ITS ---
EXAMINATION: XR hip LT 2V w AP pelvis DATE: 08/08/2023 12:39 INDICATION: Left hip pain. TECHNIQUE: An anteroposterior view of the pelvis and 2 views of left hip were obtained. COMPARISON: None. FINDINGS: Bone alignment is normal. No fracture. There is severe lumbar spondylosis. There is mild os teoarthritis of the hips. IMPRESSION: 1. Mild osteoarthritis of the hips. Reviewed, dictated and finalized at location A.
== END 2023-08-08 12:19 | disposition home or self-care (01) ==
LOC: ANHIMG 12:19
PROVIDERS: PCP Family Medicine; Visit Provider Family Medicine
DX: M47.896 Other spondylosis, lumbar region (principal); M16.12 Unilateral primary osteoarthritis, left hip
CPT/HCPCS: 72100; 73502

== ENCOUNTER 2023-08-14 12:06 | Outpatient (CLI) | payer MEDICARE, SELFPAY ==
--- NOTE | ~2023-08-14 | DEXA_ITS ---
Bone Density Report Name: ABILIO MCCLENDON Age: 73 Sex: Female Ethnicity: White Date of : 1950 Indication: postmenopausal; screening for osteoporosis; parental hip fracture; height loss; history of glucocorticoids; hysterectomy; rheumatoid arthritis; secondary osteoporosis; Referring Provider: DANIELLE, FLEX Hogan Study: Bone densitometry was performed. Exam Date: August 14, 2023 Accession number: [id number] Bone Density: Region BMD T-score Z-score Classification AP Spine(L1-L4) 1.207 1.5 3.8 Normal Femoral Neck (Left) 0.706 -1.3 0.7 Osteopenia Total Hip (Left) 0.948 0.1 1.7 Normal Femoral Neck (Right) 0.671 -1.6 0.4 Osteopenia Total Hip (Right) 0.888 -0.4 1.3 Normal Total Hip Mean 0.918 -0.2 1.5 Normal World Health Organization criteria for BMD impression classify patients as: Normal (T-score at or above -1.0), Osteopenia (T-score between -1.0 and -2.5), or Osteoporosis (T-score at or below -2.5). 10-year Fracture Risk: FRAX not reported because: Treated for osteoporosis Clinical Information Provided by Patient: Parent has had a hip fracture Has taken Glucocorticoids Has rheumatoid arthritis Has secondary osteoporosis Is being treated for osteoporosis Has used the following medications: Vitamin D Has the following medical conditions: Hysterectomy Patient maximum height was 62 Menopause Age: 38 Onset of menses at age 10 Number of children 1 Impression: The patient has low bone mass, based on the Right Femoral Neck T-score. The patient has risk factors, including: parental hip fracture, history of glucocorticoid therapy. Discussion: It is important to ask patients whether they are taking their medications and to encourage continued and appropriate compliance with their osteoporosis therapies to reduce fracture risk. It is also important to review their risk factors and encourage appropriate calcium and vitamin D intakes, exercise, fall prevention and other lifestyle measures. Follow-Up: Consider a repeat BMD and Vertebral Fracture Assessment (VFA) exam in 2 years or sooner if medically necessary, to reassess this patient's status. Reported by: NBA on 08/14/2023 12:44:00 PM. Reviewed, dictated and finalized at location ABrenda IGLESIAS
== END 2023-08-14 12:07 | disposition home or self-care (01) ==
LOC: ANHIMG 12:14
PROVIDERS: PCP Family Medicine; Visit Provider Family Medicine
DX: Z78.0 Asymptomatic menopausal state (principal); M85.852 Other specified disorders of bone density and structure, left thigh; M85.851 Other specified disorders of bone density and structure, right thigh
CPT/HCPCS: 77080

== ENCOUNTER 2023-09-12 12:38 | Outpatient (CLI) | payer MEDICARE, SELFPAY ==
--- NOTE | ~2023-09-12 | MR_ITS ---
MRI of the lumbar spine Clinical History: Radiculopathy Technique: Axial T2-weighted images, and sagittal T1-weighted, T2-weighted, and T2 fat-sat images wer e acquired. Findings: There is no acute fracture. There is 3 mm retrolisthesis of L2 over L3. There is minimal gr eduard 1 retrolisthesis of L3 over L4. There is a 4-5 mm retrolisthesis of L5 over S1. There are extensi ve probable Modic changes, but no suspicious bone marrow signal abnormality seen. At L1-L2, there is moderate degenerative disc narrowing. There is advanced facet arthropathy. There i s a 1.5 x 1.5 cm synovial cyst, likely left-sided, resulting in severe thecal sac compression at this level. Bilateral neural foramina are preserved. At L2-L3, there is severe degenerative disc narrowing. There is minimal disc bulge with moderate to a dvanced facet arthropathy. No central canal stenosis. There is moderate left neural foraminal narrowi ng and mild right neural foraminal narrowing. At L3-L4, there is severe degenerative disc narrowing. There is minimal disc bulge and advanced facet arthropathy. No central canal stenosis. There is preservation neural foramina. At L4-L5, there is disc bulge and severe facet arthropathy. There is minimal central canal stenosis. There is mild to moderate right neural foraminal narrowing. Left neural foramen minimally narrowed. At L5-S1, there is severe degenerative disc narrowing. There is mild disc bulge and severe facet arth ropathy. No central canal stenosis. There is severe bilateral neural foraminal comprise. Probable postoperative change posteriorly at the L5 level. Paravertebral soft tissues otherwise are u nremarkable. Impression: 1.5 x 1.5 cm synovial cyst at L1-L2, probably left-sided, resulting in severe thecal sac compression at this level. Multilevel neural foraminal narrowing otherwise, worst at L5-S1. Underlying moderate degenerative spo ndylosis, as above. Multiple grade 1 retrolistheses, as above. Reviewed, dictated and finalized at [facility] M. Impression: 1.5 x 1.5 cm synovial cyst at L1-L2, probably left-sided, resulting in severe t hecal sac compression at this level. Multilevel neural foraminal narrowing otherwise, worst at L5-S1. Underlying mod erate degenerative spondylosis, as above. Multiple grade 1 retrolistheses, as above.
== END 2023-09-12 12:39 ==
LOC: MICIMG 12:39
PROVIDERS: PCP Nurse Practitioner Family; Visit Provider Nurse Practitioner Family
DX: M54.16 Radiculopathy, lumbar region (principal)
CPT/HCPCS: 72148

== ENCOUNTER 2024-04-04 02:31 | Inpatient (IN) | payer MEDICARE, SELFPAY ==
[2024-04-04] VITALS (14 sets, daily range): BP systolic 102–156; BP diastolic 39–85; PULSE 65–133; RESP 11–18; TEMP 36.2–37; O2SAT 95–100; BMI 30.8
--- NOTE | ~2024-04-04 | CT_ITS ---
EXAMINATION: CT abdomen pelvis w con DATE: 04/04/2024 10:52 INDICATION: Bright red blood per rectum TECHNIQUE: Computed tomography (CT) of the abdomen and pelvis was performed with 100 CC Omnipaque 350 intravenous contrast. Automated exposure control and iterative reconstruction technique were employe d. Exam dose: 475.01 mGy-cm total exam DLP. COMPARISON: None. FINDINGS: There is an approximately 11.4 x 24 mm fatty lesion within the hepatic flexure of the colon , most consistent with a lipoma. This type of lesion can erode and cause rectal bleeding. No apparent active contrast extravasation in the bowel lumen is noted at this time throughout the sto mach, small or large bowel. A few sigmoid diverticula are noted; no CT evidence of diverticulitis. There is some thickening of the wall of the sigmoid and descending colon which may be due to nonspeci fic colitis. No bowel obstruction or intraperitoneal free air. The lung bases are clear. Normal heart size. No pericardial or pleural effusion. The liver, gallbladder, bile ducts, pancreas, pancreatic duct, spleen, and adrenal glands and kidneys are unremarkable. There is atherosclerotic calcification of the abdominal aorta and iliac arteries. No abdominal aortic aneurysm. No intraperitoneal or retroperitoneal or pelvic mass lesion or adenopathy or ascites. The urinary bladder is evacuated. Status post hysterectomy. Degenerative spurring of the lower thoracic spine. Multilevel severe degenerative disease of the lumbar and lumbosacral spine with associated mild retro listhesis at L2-3 and L3-4 and L5-S1. Prominent degenerative change at the apophyseal joints of the l umbar spine. No suspicious osteolytic or osteoblastic lesions are noted. IMPRESSION: Approximately 11.4 x 24 mm hepatic flexure colonic lipoma Nonspecific thickening of the wall of the sigmoid and descending colon which may be due to nonspecifi c colitis Mild sigmoid colon diverticulosis; no evidence of diverticulitis Status post hysterectomy Reviewed, dictated and finalized at [facility]. Reviewed, dictated and finalized at location [facility]. E OUT WORKER IMPRESSION: Approximately 11.4 x 24 mm hepatic flexure colonic lipoma Nonspecific thickening of the wall of the sigmoid and descending colon which ma y be due to nonspecific colitis Mild sigmoid colon diverticulosis; no evidence of diverticulitis Status post hysterectomy
--- NOTE | ~2024-04-04 | MR_ITS ---
EXAMINATION: MR brain/brain stem wo con DATE: 04/08/2024 17:03 INDICATION: Slurred speech. TECHNIQUE: Magnetic resonance imaging (MRI) of the brain and brainstem was performed without intraven ous contrast. COMPARISON: None. FINDINGS: There are scattered areas of nonspecific increased T2-weighted signal intensity in the cere bral white matter, which is within normal limits for the patient's age. There is no intracranial hemo rrhage, acute infarction, or abnormal intracranial mass lesion. The ventricles are normal in size. Th ere is complete opacification of left maxillary sinus. There are likely changes of ocular lens replac ement surgeries. The mastoid air cells are normal. IMPRESSION: 1. Normal aging brain. Reviewed, dictated and finalized at location A. RY DRUM DYER IMPRESSION: 1. Normal aging brain.
--- NOTE | ~2024-04-04 | XR_ITS ---
XR chest 1V portable Ordering provider: Aubrey Reyna MD History: 74 years Female with . sob . Comparison: Him April 04, 2024 FINDINGS: MEDIASTINUM: The cardiac silhouette is not enlarged. LUNGS: No effusions or pneumothorax. Minimal opacification the left lung base medially which may audrey becki atelectasis versus pneumonia. OTHER: No free air under the diaphragm. Postoperative changes in the cervical spine. Degenerative changes of the thoracic spine. Osteoarthrit ic changes of both shoulders. IMPRESSION: Left basilar atelectasis versus pneumonia seen medially. Reviewed, dictated and finalized at location [facility]. D HAND
--- NOTE | ~2024-04-04 | XR_ITS ---
XR chest 1V portable 04/10/2024 08:26 Indication: Confusion. Acute renal insufficiency. Procedure: AP portable chest Comparison: Comparison to multiple prior studies sequentially, with oldest reviewed study dated 09/25. Findings: Heart size normal. No focal air space disease, pulmonary edema, pleural effusion or suspect ed pneumothorax. Impression: 1: No acute cardiopulmonary disease. Reviewed, dictated and finalized at location B. HEAD DOOR TECHNICIAN Impression: 1: No acute cardiopulmonary disease.
--- NOTE | ~2024-04-04 | US_ITS ---
Renal-Bladder ultrasound Clinical History: Acute renal sufficiency Technique: Real-time sonographic imaging of the kidneys and urinary bladder was performed. Findings: The right kidney measures 8.6 cm in length and the left kidney measures 8.4 cm. There is no hydronephrosis or renal calculus identified. Renal cortical echogenicity is within normal limits. No renal mass lesion is identified. The urinary bladder is not clearly visualized. Cholelithiasis and gallbladder sludge incidentally noted. Impression: Unremarkable ultrasound of the kidneys. Cholelithiasis and gallbladder sludge incidentally noted. Reviewed, dictated and finalized at location . MANAGER Impression: Unremarkable ultrasound of the kidneys. Cholelithiasis and gallbladder sludge incidentally noted.
--- NOTE | ~2024-04-04 | CT_ITS ---
CLINICAL INDICATION: Nausea and vomiting hypoactive bowel sounds and colitis COMPARISON: 04/04/2024 and dating back to 12/25/2018. TECHNIQUE: Multiple contiguous axial images of the abdomen and pelvis were performed without the admi nistration of intravenous contrast The dose-length product (DLP) was 750.03 mGy-cm. Automated exposure control and iterative reconstruction technique were employed. FINDINGS/OBSERVATIONS: Visualized lower thorax: Left basilar infiltrate. Trace right-sided pleural effusion. The remainder of the bilateral lung base s are clear The heart is of normal size, without pericardial effusion. Small hiatal hernia is present. Liver: The liver demonstrates homogeneous attenuation and is not enlarged measuring 14 cm in longitudinal di mension. Gallbladder and biliary system: Vicarious excretion of intravenous contrast into the gallbladder from previous examination dated 2024 Pancreas: Limited evaluation of the pancreas secondary to the lack of intravenous contrast. Spleen: Punctate calcifications identified within the splenic parenchyma, suggesting prior granulomatous dise ase. The remainder of the spleen otherwise demonstrates homogeneous attenuation and is not enlarged measur ing 7 cm in longitudinal dimension. Kidneys: A nephrogenic phase is identified within the bilateral kidneys, likely from intravenous contrast from 04/04/2024 and markedly delayed excretion. No hydronephrosis or obstructing renal calculi. Adrenal glands: Unremarkable. Gastrointestinal tract: The stomach is distended with fluid. This distention extends to the proximal jejunum which tapers gra dually to normal caliber. Mural thickening within the rectosigmoid colon with multiple diverticula. Trace surrounding inflammatory change is noted Oral contrast is identified within the ascending and proximal transverse colon Appendix: The appendix is not definitively visualized. However, no pericecal inflammatory change is identified suggest the presence of acute appendicitis. Vasculature: Densely calcified atherosclerotic disease. Lymph nodes: No pathologically enlarged or morphologically suspicious lymph nodes within the retroperitoneum or at the root of the mesentery. Pelvic structures: The bladder is only minimally distended and opacified with previous contrast The uterus is either atrophic or surgically absent. Body wall and musculoskeletal: Interval development of marked anasarca as well as significant retroperitoneal inflammatory change. Severe degenerative disease within the lumbosacral spine with osteophyte formation, disc space narrow ing, endplate changes and vacuum phenomena. IMPRESSION: Left basilar infiltrate with a small right-sided pleural effusion, an interval change from 04/04/2023. Marked delayed excretion within the bilateral kidneys, consistent with patient's history. Fluid distention of the stomach, extending to the proximal jejunum consistent with patient's history Mural thickening within the rectosigmoid colon with multiple diverticula and trace surrounding inflam matory change, similar in appearance to examination dated 04/04/2024. No drainable fluid collections or gross perforation is noted. Interval development of significant anasarca and retroperitoneal inflammatory change. Reviewed, dictated and finalized at location A. D RADIO OPERATOR IMPRESSION: Left basilar infiltrate with a small right-sided pleural effusion, an interval change from 04/04/2023. Marked delayed excretion within the bilateral kidneys, consistent with patient' s history. Fluid distention of the stomach, extending to the proximal jejunum consistent w ith patient's history Mural thickening within the rectosigmoid colon with multiple diverticula and tr césar surrounding inflammatory change, similar in appearance to examination dated 04/04/2024. No drainable fluid collections or gross perforation is noted. Interval development of significant anasarca and retroperitoneal inflammatory c hange.
--- NOTE | ~2024-04-04 | XR_ITS ---
XR chest 1V DATE: 04/04/2024 11:01 INDICATION: Vomiting TECHNIQUE: AP chest COMPARISON: None FINDINGS: Normal heart size. Aortic arch calcification. No hilar or mediastinal enlargement. No pulmonary infiltrate or consolidation, pleural effusion or pulmonary vascular congestion or pneumo thorax is detected. No Thoracic dextroscoliosis. Osteopenia. Suture anchor left humeral head. Prominent bilateral chronic rotator cuff atrophy. Left glenohumeral osteoarthritis. Resection of the lateral aspect of the right clavicle. Status post posterior surgical fusion of the cervical and upper thoracic spine IMPRESSION: No active cardiopulmonary disease No intraperitoneal free air is detected Reviewed, dictated and finalized at location A. CE TECHNOLOGY PROFESSOR
--- NOTE | 2024-04-04 02:42 | ECG_ITS ---
Test Date: 2024-04-04 02:49:49 Measurements Intervals [place] Rate: 127 P: 31 PA: 178 QRS: -4 QRSD: 78 T: 90 QT: 290 QTc: 422 Interpretive Statements SINUS TACHYCARDIA LOW QRS VOLTAGE IN PRECORDIAL LEADS [QRS DEFLECTION < 1.0 mV IN CHEST LEADS] MINIMAL ST DEPRESSION [0.025+ mV ST DEPRESSION] No previous ECG available for comparison Electronically Signed On 04-07-2024 17:54:36 HOT [employer]AM[employer] MAN by Roxanna Sethi M.D.
[2024-04-04 02:58] LABS: Basophils Percent Auto 0.3 % (0.2-1.2); Eosinophils Absolute Auto 0.2 K/mm3 (0-0.3); Hematocrit 33.1 % (37.0-47.0); Hemoglobin 10.9 g/dL (12.0-15.0); Immature Granulocyte Absolute 0.04 K/mm3 (0.00-0.031); Immature Granulocyte Percent A 0.3 % (0-0.5); Lymphocytes Absolute Auto 1.03 K/mm3 (0.9-3.2); Lymphocytes Percent Auto 8.8 % (18.3-44.2); Mean Corpuscular HGB Conc 32.9 g/dl (32-36); Mean Corpuscular Hemoglobin 32.2 pg (26-34); Mean Corpuscular Volume 97.9 fl (80-100); Mean Platelet Volume 10.5 fl (7.4-10.4); Monocytes Absolute Auto 0.8 K/mm3 (0.1-0.6); Monocytes Percent Auto 7.2 % (2.6-8.5); Neutrophils Absolute Auto 9.5 K/mm3 (1.3-6.7); Neutrophils Percent Auto 81.4 % (45.5-73.1); Platelet Count Result 262 k/mm3 (150-375); Red Blood Count 3.38 M/mm3 (4.2-5.4); Red Cell Distribution Width 14.5 % (11.5-14.5); White Blood Count 11.7 K/mm3 (4.5-10.0)
[2024-04-04 03:09] LABS: Partial Thromboplastin Time 26.9 Seconds (22.3-36.8)
[2024-04-04 03:17] LABS: Alanine Aminotransferase 11 U/L (6-35); Albumin Level 4.2 g/dL (3.5-5.1); Alkaline Phosphatase 78 U/L (38-126); Anion Gap 8 mmol/L (4-12); Aspartate Amino Transferase 17 U/L (14-36); Bilirubin,Total 0.8 mg/dL (0.2-1.3); Blood Urea Nitrogen 49 mg/dL (7-17); Calcium 9.9 mg/dL (8.4-10.2); Carbon Dioxide 19 mmol/L (22-30); Chloride 107 mmol/L (98-107); Estimated Glomerular Filt Rate 18; Glucose 136 mg/dL (65-110); Potassium 4.9 mmol/L (3.4-5.0); Sodium 134 mmol/L (137-145)
--- NOTE | 2024-04-04 10:36 | ED.GIBLEED ---
HPI - GI Bleed General Chief complaint: GI Bleed Stated complaint: Vomiting blood and passing out Time Seen by Provider: 04/04/24 10:06 History of Present Illness HPI Narrative: 74-year-old female with a past medical history including Ferrell's esophagus, CKD stage 4, diabetes and hypertension. Today patient presents to the emergency room with chief complaint of hematemesis and bright red blood per rectum. She states that about 1 day prior she had severe abdominal pain that woke up from sleep and was burning in quality radiating towards her chest and throat. She had several episodes of vomiting blood and then later on started having bloody diarrhea. She reports up to 10 episodes each since yesterday. Continues having burning esophageal pain and epigastric pain in her abdomen. Denies any shortness of breath, fever, chills, back pain. She states that she feels weak and dizzy. States she has had previous endoscopies most recently 2 years prior that included multiple biopsies but no varices or variceal bleeds. Denies any history of GI bleeding to her knowledge. States that she has a long history of Ferrell's esophagus but presently does not follow with a dental technologist after insurance changes. She was otherwise in her normal state of health. Related Data Home Medications ?Medication ?Instructions ?Recorded ?Confirmed ?Last Taken ?Type bupropion HCl 100 mg tablet 100 mg PO BID 12/24/20 12/17/23 Unknown History cholecalciferol (vitamin D3) 50 50 mcg PO BID 12/24/20 12/17/23 Unknown History mcg (2,000 unit) tablet (Vitamin D3) latanoprost 0.005 % eye drops 1 drp EACH EYE DAILY 12/24/20 12/17/23 Unknown History (Xalatan) lisinopril 20 mg tablet (Zestril) 20 mg PO DAILY 12/24/20 12/17/23 Unknown History pantoprazole 40 mg tablet,delayed 40 mg PO QAM 12/24/20 12/17/23 Unknown History release (Protonix) pravastatin 40 mg tablet 40 mg PO DAILY 12/24/20 12/17/23 Unknown History cetirizine 10 mg tablet (Zyrtec) 10 mg PO DAILY PRN 08/20/23 12/17/23 Unknown History Allergies Allergy/AdvReac Type Severity Reaction Status Date / Time bethanechol Allergy Mild ITESTINAL Verified 12/17/23 13:56 PROBLEMS Sulfa (Sulfonamide Allergy Mild HIVES Verified 12/17/23 13:56 Antibiotics) sulfamethoxazole Allergy Mild HIVES Verified 12/17/23 13:56 cyclobenzaprine Allergy Unknown Unknown Verified 12/17/23 13:56 fluoxetine Allergy Unknown Unknown Verified 12/17/23 13:56 latex Allergy Unknown Unknown Verified 12/17/23 13:56 meperidine Allergy Unknown Unknown Verified 12/17/23 13:56 naproxen Allergy Unknown Unknown Verified 12/17/23 13:56 trimethoprim Allergy Unknown Unknown Verified 12/17/23 13:56 ADHESIVE TAPE Allergy Mild Unknown Uncoded 12/17/23 13:56 FLU SHOT Allergy Mild HIVES Uncoded 12/17/23 13:56 SMALL POX VACCINE Allergy Mild HIVES Uncoded 12/17/23 13:56 EGGS Allergy Unknown Unknown Uncoded 12/17/23 13:56 SEE NSG NOTES Allergy Unknown Unknown Uncoded 12/17/23 13:56 Review of Systems Review of Systems: As reviewed above in [facility] Past Medical History Medical History (Updated 04/04/24 @ 16:05 by Billy Thakkar MD) Diabetes type 2, controlled Restless leg syndrome Chronic kidney disease, stage IV (severe) Hyperlipidemia Vitamin D deficiency Raynaud's disease Anemia Depression Degenerative disc disease Cervical neck fusion in 2006 Arthritis Musculoskeletal disorder Bilateral rotator cuff surgery, bilateral carpal tunnel, arthritis, left thumb subluxed Ferrell's esophagus Pneumonia Hypertension Heart murmur Migraines Last migraine 2006 Glaucoma Cataracts, bilateral Surgical History Surgical History (Updated 04/04/24 @ 15:01 by Francy Santos PA-C) History of cervical spinal surgery History of orthopedic surgery Lower back disc removal 1986, repair of spinal leak 1987 History of appendectomy History of tonsillectomy Family History Family History Sibling Family history of thyroid disease Family history of obesity Family history of osteoporosis Family history of migraine headaches Hypertension Family history of elevated blood lipids Family history of alcoholism Family history of diabetes mellitus in first degree relative Family history of coronary artery disease Father Family history of osteoporosis Family history of lung cancer Mother Family history of osteoarthritis Family history of malignant melanoma Family history of atrial fibrillation Social History Social History (Updated 04/04/24 @ 15:06 by Francy Santos PA-C) Social History: Surrogate medical decision maker: Code status: Full code. Smoking status: Never smoker Second hand tobacco smoke exposure: Yes (father and ) Alcohol intake: never Substance use: never Substance use type: other Other substance usage details: cbd gummies without thc Do You Feel Safe in your Home?: Yes Lack of Transportation: No Lack of Food: Never True Current Housing: I Have Housing Concerned About Future Housing: No Difficulty Paying Gas/Electric Bills: No Difficulty Paying for Meds: No Currently Unemployed: No Education: Associate Degree Difficulty w/ Childcare or Family Care: No Living arrangements: with family Spiritual care concerns: Yes (advent) Exam Narrative: GENERAL: Uncomfortable appearing, not any acute distress, answering all questions appropriately awake HEAD: [Normocephalic, atraumatic.] EYES: [PERRLA and EOMI.] ENT: Nares clear, no rhinorrhea or epistaxis. Mucous membranes moist. NECK: Supple. CHEST: [Clear to auscultation. No respiratory distress.] HEART: [Regular rate and rhythm]. No murmur heard. [Normal peripheral pulses.] ABDOMEN: Soft but distended, tender to palpation diffusely, [No rigidity or guarding] EXTREMITIES: Normal range of motion. [No edema.] SKIN: Warm, dry, no rash. NEURO: [No focal deficits]. Alert and oriented [x3.] PSYCH: [Normal mood and affect.] Course Vital Signs Vital signs: Vital Signs Temperature 37.0 C 04/04/24 02:34 Pulse Rate 133 H 04/04/24 02:34 Respiratory Rate 14 04/04/24 02:34 Blood Pressure 156/85 H 04/04/24 02:34 Pulse Oximetry 100 04/04/24 02:34 Oxygen Delivery Room Air 04/04/24 02:34 Temperature 36.2 C L 04/04/24 06:38 Pulse Rate 106 H 04/04/24 11:29 Respiratory Rate 16 04/04/24 11:29 Blood Pressure 120/45 L 04/04/24 11:29 Pulse Oximetry 98 04/04/24 11:29 Oxygen Delivery Room Air 04/04/24 02:34 MDM - GI Bleed MDM Narrative Medical decision making narrative: 74-year-old female with history of Ferrell's esophagus, CKD, diabetes and hypertension presenting with signs symptoms of a gastrointestinal hemorrhage. She states that since yesterday she has had multiple episodes of bloody diarrhea, blood red blood per rectum, bloody emesis as well as burning epigastric and throat pain. She states her most recent endoscopy was 2 years prior without concern. She is not on any blood thinner medications. Patient does present to me a pad that she was wearing that is filled with bright red blood and states that she has had to change this out several times while here in the emergency department and is coming from her rectum. She does have a distended and tender abdomen, initial vital signs were concerning with a pulse rate of 133, slowly decreased 114 while sitting in her stretcher, afebrile and saturating well on room air without any tachypnea. Considerations presently are for a brisk upper GI bleed, lower GI bleed, complications of her Ferrell's esophagus, less likely variceal pathology given that she has no history of liver disease or varices. She was resuscitated with L of fluids, given 80 mg of IV Protonix IV push, morphine and Reglan for symptom control as well as obtaining a CT scan with contrast to delay any active extravasation or active GI bleeding. Gastroenterology will be consulted for endoscopy. Patient's workup reveals a leukocytosis 11.7, initial hemoglobin of 10.9 down trending the 9.3 on serial H&H. Platelets within normal limits. Coagulation panel within normal limits. Electrolyte panel showing unremarkable findings, BUN and creatinine reflective of her normal kidney disease. Low GFR, in line with her baseline. Glucose 136. Normal CMP. Patient CT abdomen pelvis shows hepatic flexure lipoma, nonspecific thickening of the sigmoid and descending colon consistent with nonspecific colitis. Sigmoid diverticulosis without diverticulitis. Patient's gastroenteritis could be the source of her bright red blood per rectum. Patient has not had any hematemesis or emesis while here in the emergency department during my care, I discussed the case with the on-call GI doctor Dr. Greer. We went over patient's imaging studies, clinical assessment, hemodynamics and plan of care going forward. Recommendations for empiric antibiotics including treatment of her gastroenteritis and serial H&Hs with stool studies being sent. Patient will be evaluated on inpatient basis by GI. I discussed the case with the hospitalist currently being covered by the [facility] who agreed to [facility] the [facility] bed. Medical Records Attestation: I reviewed the patient's medical records. Lab Data Attestation: I reviewed the patient's lab results. 04/04/24 11:14 04/04/24 02:48 Labs: Lab Results 04/04/24 04/04/24 Range/Units 02:48 11:14 WBC 11.7 H (4.5-10.0) K/mm3 RBC 3.38 L (4.2-5.4) M/mm3 Hgb 10.9 L 9.3 L (12.0-15.0) g/dL Hct 33.1 L 27.9 L (37.0-47.0) % MCV 97.9 (80-100) fl MCH 32.2 (26-34) pg MCHC 32.9 (32-36) g/dl RDW 14.5 (11.5-14.5) % Plt Count 262 (150-375) k/mm3 MPV 10.5 H (7.4-10.4) fl Immature Gran % (Auto) 0.3 (0-0.5) % Neut % (Auto) 81.4 H (45.5-73.1) % Lymph % (Auto) 8.8 L (18.3-44.2) % [place] % (Auto) 7.2 (2.6-8.5) % Eos % (Auto) 2.0 (0-4.4) % Baso % (Auto) 0.3 (0.2-1.2) % Lymph # (Auto) 1.03 (0.9-3.2) K/mm3 [place] # (Auto) 0.8 H (0.1-0.6) K/mm3 Eos # (Auto) 0.2 (0-0.3) K/mm3 Baso # (Auto) 0.0 (0.0-0.1) K/mm3 Abs Immat Gran (auto) 0.04 H (0.00-0.031) K/mm3 Absolute Neuts (auto) 9.5 H (1.3-6.7) K/mm3 Absolute Nucleated RBC 0.000 (0.0-0.012) K/mm3 Nucleated RBC % 0.0 (0.0-0.2) % PT 14.0 (11.1-14.7) Seconds INR 1.0 APTT 26.9 (22.3-36.8) Seconds Sodium 134 L (137-145) mmol/L Potassium 4.9 (3.4-5.0) mmol/L Chloride 107 (98-107) mmol/L Carbon Dioxide 19 L (22-30) mmol/L Anion Gap 8 (4-12) mmol/L BUN 49 H D (7-17) mg/dL Creatinine 2.60 H (0.7-1.0) mg/dL Estim Creat Clear Calc Not Reportable Estimated GFR 18 L (59 - ) Glucose 136 H (65-110) mg/dL Calcium 9.9 (8.4-10.2) mg/dL Total Bilirubin 0.8 (0.2-1.3) mg/dL AST 17 (14-36) U/L ALT 11 (6-35) U/L Alkaline Phosphatase 78 (38-126) U/L Total Protein 7.0 (6.3-8.2) g/dL Albumin 4.2 (3.5-5.1) g/dL Blood Type A Positive Antibody Screen Negative Imaging Data Attestation: I personally reviewed and interpreted this imaging study as follows: My impression: Impressions Abdomen/Pelvis CT 04/04/24 11:24 IMPRESSION: Approximately 11.4 x 24 mm hepatic flexure colonic lipoma Nonspecific thickening of the wall of the sigmoid and descending colon which may be due to nonspecific colitis Mild sigmoid colon diverticulosis; no evidence of diverticulitis Status post hysterectomy Chest X-Ray 04/04/24 11:31 IMPRESSION: No active cardiopulmonary disease No intraperitoneal free air is detected Critical Care Time Critical Care Time Critical Care Time: Yes Total Critical Care Time: 35 Discharge Plan Discharge Clinical Impression: Acute GI bleeding, Hematemesis, Colitis, BRBPR (bright red blood per rectum) Patient Disposition: Still a Patient Condition: Guarded Prognosis Time of Disposition: 12:10
[2024-04-04] MEDS: LACTATED RINGERS 1,000 ML 999 ML IV CONT (11:06)
[2024-04-04] MEDS: PANTOPRAZOLE SODIUM IV 40 MG VIAL 80 MG IV PUSH (11:08)
[2024-04-04] MEDS: METOCLOPRAMIDE HCL INJ 10 MG/2 ML VIAL IV PUSH (11:08)
[2024-04-04 11:20] LABS: Hematocrit 27.9 % (37.0-47.0); Hemoglobin 9.3 g/dL (12.0-15.0)
[2024-04-04] MEDS: MORPHINE SULFATE (*CRX) 4 MG/ML INJ IV PUSH (11:24)
[2024-04-04] MEDS: cefTRIAXone 2 GM/NS 100 ML 2 GM/100 ML BAG IVPB (12:04)
--- NOTE | 2024-04-04 12:35 | P.HP_ITS ---
H&P: HPI History of Present Illness Date/Time: 04/04/24 12:35 Chief Complaint: Vomiting blood and bloody diarrhea. Narrative: This is a 74-year-old female with history of Ferrell esophagus, chronic kidney disease stage 4, type 2 diabetes mellitus, hypertension, hyperlipidemia, and depression who presented to the emergency department for evaluation of vomiting blood and bloody diarrhea. The patient provides the following history. The patient provides the following history. For the past 24 hours she has been experiencing worsening acid reflux symptoms and early this morning she was awakened from sleep at about 03:00 with a significant burning sensation in the upper abdomen. Approximately 15 minutes later she began vomiting which she describes as coffee-ground emesis and passing bloody stools. She estimates having upwards of 10 episodes of each since that time. She came in because she is now feeling weak and dizzy and is having diffuse abdominal discomfort. She denies syncope, near syncope, chest pain, shortness of breath, and dysuria. In the ED: Vitals on arrival include a temperature of 98.6?, blood pressure 156/85, pulse 133, respiratory rate 14, SpO2 100% room air. Labs were significant for a WBC count of 11.7, hemoglobin 10.9, sodium 134, carbon dioxide 19, BUN 49, creatinine 2.[address] of the abdomen and pelvis showed nonspecific thickening of the wall of the sigmoid descending colon which may be due to nonspecific colitis and other incidentals. She was given pantoprazole 80 mg IV, ceftriaxone 2 g, and metronidazole 500 mg and she is being admitted in this setting for close monitoring and GI consult. Review of Systems Review of Systems: 12 systems were reviewed and are negativ e except for as per HPI. [facility] Past Medical History Medical History Diabetes type 2, controlled Restless leg syndrome Chronic kidney disease, stage IV (severe) Hyperlipidemia Vitamin D deficiency Raynaud's disease Anemia Depression Degenerative disc disease Cervical neck fusion in 2006 Arthritis Musculoskeletal disorder Bilateral rotator cuff surgery, bilateral carpal tunnel, arthritis, left thumb subluxed Ferrell's esophagus Pneumonia Hypertension Heart murmur Migraines Last migraine 2006 Glaucoma Cataracts, bilateral Surgical History Surgical History History of cervical spinal surgery History of orthopedic surgery Lower back disc removal 1986, repair of spinal leak 1988 History of appendectomy History of tonsillectomy Family History Family History Sibling Family history of thyroid disease Family history of obesity Family history of osteoporosis Family history of migraine headaches Hypertension Family history of elevated blood lipids Family history of alcoholism Family history of diabetes mellitus in first degree relative Family history of coronary artery disease Father Family history of osteoporosis Family history of lung cancer Mother Family history of osteoarthritis Family history of malignant melanoma Family history of atrial fibrillation Social History Social History Social History: Surrogate medical decision maker: Code status: Full code. Smoking status: Never smoker Second hand tobacco smoke exposure: Yes (father and ) Alcohol intake: never Substance use: never Substance use type: other Other substance usage details: cbd gummies without thc Do You Feel Safe in your Home?: Yes Lack of Transportation: No Lack of Food: Never True Current Housing: I Have Housing Concerned About Future Housing: No Difficulty Paying Gas/Electric Bills: No Difficulty Paying for Meds: No Currently Unemployed: No Education: Associate Degree Difficulty w/ Childcare or Family Care: No Living arrangements: with family Spiritual care concerns: Yes (mormon) Meds Home Medications and Allergies Home Medications ?Medication ?Instructions ?Recorded ?Confirmed ?Type bupropion HCl 100 mg tablet 100 mg PO BID 12/24/20 04/04/24 History cholecalciferol (vitamin D3) 50 50 mcg PO BID 12/24/20 04/04/24 History mcg (2,000 unit) tablet (Vitamin D3) latanoprost 0.005 % eye drops 1 drp EACH EYE DAILY 12/24/20 04/04/24 History (Xalatan) lisinopril 20 mg tablet (Zestril) 20 mg PO DAILY 12/24/20 04/04/24 History meclizine 25 mg tablet 25 mg PO TID PRN dizziness #14 tabs 12/24/20 04/04/24 Rx pantoprazole 40 mg tablet,delayed 40 mg PO QAM 12/24/20 04/04/24 History release (Protonix) pravastatin 40 mg tablet 40 mg PO DAILY 12/24/20 04/04/24 History acetaminophen 325 mg tablet (Mapap 650 mg (2 x 325 mg) PO Q6H PRN 06/15/22 04/04/24 Rx (acetaminophen)) Mild Pain (1-3) Or Fever #30 tabs carvedilol 12.5 mg tablet (Coreg) 12.5 mg PO Q12HR #60 tabs 06/15/22 04/04/24 Rx escitalopram oxalate 10 mg tablet 20 mg (2 x 10 mg) PO DAILY #30 tabs 06/15/22 04/04/24 Rx famotidine 20 mg tablet 20 mg PO Q12HR #30 tabs 06/15/22 04/04/24 Rx gabapentin 300 mg capsule 300 mg PO TID #90 caps 06/15/22 04/04/24 Rx (Neurontin) peg [id number] 1 1 drp EACH EYE Q4H PRN Dry Eye(S) 06/15/22 04/04/24 Rx %-0.2 %-0.2 % eye drops #15 mL (Artificial Tears ([id number])) quetiapine 50 mg tablet 100 mg (2 x 50 mg) PO HS #30 tabs 06/15/22 04/04/24 Rx sodium chloride 1,000 mg soluble 1,000 mg PO QAM #14 tabs 06/15/22 04/04/24 Rx tablet cetirizine 10 mg tablet (Zyrtec) 10 mg PO DAILY PRN allergy symptoms 08/20/23 04/04/24 History calcitriol 0.25 mcg capsule See Rx Instructions .Route 03/30/24 04/04/24 Rx .COMPLEX #38 caps Allergies Allergy/AdvReac Type Severity Reaction Status Date / Time bethanechol Allergy Mild ITESTINAL Verified 04/04/24 16:23 PROBLEMS Sulfa (Sulfonamide Allergy Mild HIVES Verified 04/04/24 16:23 Antibiotics) sulfamethoxazole Allergy Mild HIVES Verified 04/04/24 16:23 cyclobenzaprine Allergy Unknown Unknown Verified 04/04/24 16:23 fluoxetine Allergy Unknown Unknown Verified 04/04/24 16:23 latex Allergy Unknown Unknown Verified 04/04/24 16:23 meperidine Allergy Unknown Unknown Verified 04/04/24 16:23 naproxen Allergy Unknown Unknown Verified 04/04/24 16:23 trimethoprim Allergy Unknown Unknown Verified 04/04/24 16:23 ADHESIVE TAPE Allergy Mild Unknown Uncoded 04/04/24 16:23 FLU SHOT Allergy Mild HIVES Uncoded 04/04/24 16:23 SMALL POX VACCINE Allergy Mild HIVES Uncoded 04/04/24 16:23 EGGS Allergy Unknown Unknown Uncoded 04/04/24 16:23 SEE NSG NOTES Allergy Unknown Unknown Uncoded 04/04/24 16:23 Vital Signs Vital Signs - 24 hr 04/04/24 02:34 04/04/24 06:38 04/04/24 09:47 Temperature 98.6 F 97.2 F L Pulse Rate 133 H 65 114 H Respiratory Rate 14 17 Blood Pressure 156/85 H 104/56 L 106/57 L Pulse Oximetry 100 95 95 Oxygen Delivery Room Air 04/04/24 11:29 Temperature Pulse Rate 106 H Respiratory Rate 16 Blood Pressure 120/45 L Pulse Oximetry 98 Oxygen Delivery Exam Narrative: General: Mildly ill-appearing female in the semi-Singh position in bed in no acute distress. Weight: 69.3 kg. BMI: 30.9. HEENT: PERRL, EOMI. Sclera anicteric. Tacky mucous membranes. Neck: Supple. Respiratory: Lungs are clear to auscultation bilaterally. Cardiovascular: Regular rate and rhythm with S1-S2. Gastrointestinal: Abdomen is soft and nondistended with positive bowel sounds. She exhibits tenderness to palpation in the periumbilical region without voluntary guarding or rebound tenderness. Skin: Warm and dry. Generalized pallor. Extremities: No cyanosis, clubbing, or significant edema. Radial and pedal pulses intact. Neurological: Alert. Cranial nerves 2-12 are grossly intact. No gross focal deficits to casual conversation. Psychiatric: Pleasant and cooperative with normal mood and affect. Judgment and insight intact. H&P: Results Labs Labs: Short CBC 04/04/24 04/04/24 Range/Units 02:48 11:14 WBC 11.7 H (4.5-10.0) K/mm3 Hgb 10.9 L 9.3 L (12.0-15.0) g/dL Hct 33.1 L 27.9 L (37.0-47.0) % Plt Count 262 (150-375) k/mm3 BMP 04/04/24 02:48 Sodium 134 L Potassium 4.9 Chloride 107 Carbon Dioxide 19 L BUN 49 H D Creatinine 2.60 H Glucose 136 H Calcium 9.9 Liver Function 04/04/24 Range/Units 02:48 Total Bilirubin 0.8 (0.2-1.3) mg/dL AST 17 (14-36) U/L ALT 11 (6-35) U/L Alkaline Phosphatase 78 (38-126) U/L Albumin 4.2 (3.5-5.1) g/dL Imaging Abdomen/Pelvis CT 04/04/24 11:24 IMPRESSION: 1. Approximately 11.4 x 24 mm hepatic flexure colonic lipoma. 2. Nonspecific thickening of the wall of the sigmoid and descending colon which may be due to nonspecific colitis. 3. Mild sigmoid colon diverticulosis; no evidence of diverticulitis. 4. Status post hysterectomy. Chest X-Ray 04/04/24 11:31 IMPRESSION: 1. No active cardiopulmonary disease. 2. No intraperitoneal free air is detected. Assessment and Plan Assessment and plan (1) GI bleed: Code(s): K92.2 - Gastrointestinal hemorrhage, unspecified Status: Acute (2) Colitis: Code(s): K52.9 - Noninfective gastroenteritis and colitis, unspecified Status: Acute (3) Chronic anemia: Code(s): D64.9 - Anemia, unspecified Status: Acute (4) Chronic kidney disease, stage IV (severe): Code(s): N18.4 - Chronic kidney disease, stage 4 (severe) Status: Acute 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 Status: Acute (6) Hypertension: Code(s): I10 - Essential (primary) hypertension Status: Acute Plan The patient presented to the emergency department for evaluation of coffee- ground emesis and hematochezia as detailed in HPI. Labs, imaging, EKG, and all reports were personally reviewed. She has had no further episodes of vomiting since arrival to the hospital but according to the ED physician she had gross blood on rectal exam. Hemoglobin and hematocrit will be trended and she will be transfused if indicated. Continue pantoprazole b.i.d and empiric antibiotics for possible colitis. Dr. Greer has been consulted and his input is appreciated. It sounds as though he plans on doing upper endoscopy later today. BUN and creatinine are a bit higher than what she typically runs and she has been started on judicious IV fluid rehydration. Blood pressures have been running on the low end of normal and her antihypertensives are on hold for now. The rest of her home medications will be reviewed and resumed as appropriate. Findings and treatment plan were discussed with the patient. Questions were solicited and answered to satisfaction. The patient's medical management will be taken over by the hospitalist team in a.m. Quality VTE Prophylaxis VTE prophylaxis: mechanical ordered If No VTE Prophylaxis Answer both mechanical and pharmacologic: Reason no pharmacologic proph: medical contraindication (GI bleed) The patient has been admitted under observation status. Hospitalist [facility] Advance Care Plan I have confirmed that the patient's Advanced Care Plan is present, code status i s documented, or surrogate decision maker is listed in patient medical record.: Yes Medication Reconciliation I have utilized all available resources to obtain, update and review the patients current medications (includes all prescriptions, OTC, herbals, cannabis, and nutritional supplements).: Yes
[2024-04-04] MEDS: metroNIDAZOLE 500 MG/ISO 100ML 500 MG/100 ML BAG 100 MG IVPB ×2 (13:08→21:27)
[2024-04-04] MEDS: LACTATED RINGERS 1,000 ML 125 ML IV CONT (14:22)
--- NOTE | 2024-04-04 14:56 | WPDGICN ---
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 Patient also has history of Ferrell's esophagus. I did advise the patient that her blood pressures are running slightly low at this point will continue with aggressive IV fluid resuscitation. Will keep the patient NPO we will keep the patient on Protonix will also give patient 1 dose of Reglan if she is not allergic to it will proceed with the upper endoscopy for evaluation to rule out peptic ulcer disease. I did discuss with her about the possibility of esophagitis, esophageal ulcers, esophageal cancer, peptic ulcer disease I did advise the patient that sometimes the scopes cannot control the bleeding. Anesthesia risks and complications of the procedure have been discussed in detail with the patient. At this time with patient's mild hypotension as well as frequent bouts of hematemesis will proceed with the upper endoscopy for evaluation will ask Anesthesia to evaluate the patient before the procedure further recommendations will follow after the anesthesia will call the warehouse worker to schedule the upper endoscopy today will also check the stool studies GI Consult Note Consult date/time: 04/04/24 14:56 Reason for consult: Hematemesis rectal bleeding history of Ferrell's esophagus history of chronic anemia HPI: Kandace Cole is a 74 year old female seen 1st time covering on the weekend patient states that yesterday she started having frequent bouts of nausea and vomiting. some of the vomitus as red blood according to her she has history of Ferrell's esophagus. She used to follow up at the [facility] in [place]. But last upper scope and lower scope was 2 years ago according to her then she had some insurance problems and did not go back. Does admit to drinking alcohol but according to her she only drinks occasionally according to her she has burning sensation in the upper abdomen in the esophagus. Also according to her she feels weak denies any passing out spells denies any use of ibuprofen Aleve according to her she has chronic kidney disease and does not take NSAIDs. Patient appears to be very well aware of her medical conditions. Are denies any stents in the heart denies any blood thinners patient lab workup as well as the imaging results were reviewed Review of Systems Constitutional: Constitutional: Denies chills, Denies fatigue, Denies fever(s), Denies headache(s), Denies malaise, Denies weight gain and Denies weight loss Eyes: Eyes: Denies change in vision ENT: Denies dizziness, Denies headache(s) and Reports other (No change in hearing) Cardiovascular: Cardiovascular: Denies chest pain, Denies dyspnea and Reports other (denies palpitations, denies orthopnea) Respiratory: Respiratory: Denies cough, Denies dyspnea and Reports other (denies sputum production, denies hemoptysis) Gastrointestinal: Gastrointestinal: Reports as per HPI Genitourinary: Genitourinary: Denies hematuria, Denies dysuria and Denies urinary incontinence Musculoskeletal: Musculoskeletal: Reports other (denies extremity edema, denies myalgia) Integumentary/Breasts: Skin/Breast: Denies new lesions and Denies rash Neurologic: Denies dizziness, Denies headache(s) and Denies seizure-like activity Endocrine: Endocrine: Denies fatigue Hematologic/Lymphatic: Hematologic/Lymphatic: Denies easy bleeding and Denies easy bruising PMFSH Past Medical History Medical History Raynaud's disease Anemia Depression Degenerative disc disease Cervical neck fusion in 2007 Arthritis Musculoskeletal disorder Bilateral rotator cuff surgery, bilateral carpal tunnel, arthritis, left thumb subluxed Ferrell's esophagus Pneumonia Hypertension Heart murmur Migraines Last migraine 2006 Glaucoma Cataracts, bilateral Surgical History Surgical History History of orthopedic surgery Lower back disc removal 1986, repair of spinal leak 1987 History of appendectomy History of tonsillectomy Family History Family History Sibling Family history of thyroid disease Family history of obesity Family history of osteoporosis Family history of migraine headaches Hypertension Family history of elevated blood lipids Family history of alcoholism Family history of diabetes mellitus in first degree relative Family history of coronary artery disease Father Family history of osteoporosis Family history of lung cancer Mother Family history of osteoarthritis Family history of malignant melanoma Family history of atrial fibrillation Social History Social History Smoking status: Never smoker Second hand tobacco smoke exposure: Yes (father and ) Alcohol intake: never Substance use: never Substance use type: other Other substance usage details: cbd gummies without thc Do You Feel Safe in your Home?: Yes Lack of Transportation: No Lack of Food: Never True Current Housing: I Have Housing Concerned About Future Housing: No Difficulty Paying Gas/Electric Bills: No Difficulty Paying for Meds: No Currently Unemployed: No Education: Associate Degree Difficulty w/ Childcare or Family Care: No Living arrangements: with family Gender identity (if verbalized by the patient): Female Spiritual care concerns: Yes (rastafarian) Meds Home Medications and Allergies Home Medications ?Medication ?Instructions ?Recorded ?Confirmed ?Type bupropion HCl 100 mg tablet 100 mg PO BID 12/24/20 12/17/23 History cholecalciferol (vitamin D3) 50 50 mcg PO BID 12/24/20 12/17/23 History mcg (2,000 unit) tablet (Vitamin D3) latanoprost 0.005 % eye drops 1 drp EACH EYE DAILY 12/24/20 12/17/23 History (Xalatan) lisinopril 20 mg tablet (Zestril) 20 mg PO DAILY 12/24/20 12/17/23 History meclizine 25 mg tablet 25 mg PO TID PRN dizziness #14 tabs 12/24/20 12/17/23 Rx pantoprazole 40 mg tablet,delayed 40 mg PO QAM 12/24/20 12/17/23 History release (Protonix) pravastatin 40 mg tablet 40 mg PO DAILY 12/24/20 12/17/23 History acetaminophen 325 mg tablet (Mapap 650 mg (2 x 325 mg) PO Q6H PRN 06/15/22 12/17/23 Rx (acetaminophen)) Mild Pain (1-3) Or Fever #30 tabs carvedilol 12.5 mg tablet (Coreg) 12.5 mg PO Q12HR #60 tabs 06/15/22 12/17/23 Rx escitalopram oxalate 10 mg tablet 20 mg (2 x 10 mg) PO DAILY #30 tabs 06/15/22 12/17/23 Rx famotidine 20 mg tablet 20 mg PO Q12HR #30 tabs 06/15/22 12/17/23 Rx gabapentin 300 mg capsule 300 mg PO TID #90 caps 06/15/22 12/17/23 Rx (Neurontin) peg [id number] 1 1 drp EACH EYE Q4H PRN Dry Eye(S) 06/15/22 12/17/23 Rx %-0.2 %-0.2 % eye drops #15 mL (Artificial Tears ([id number])) quetiapine 50 mg tablet 100 mg (2 x 50 mg) PO HS #30 tabs 06/15/22 12/17/23 Rx sodium chloride 1,000 mg soluble 1,000 mg PO QAM #14 tabs 06/15/22 12/17/23 Rx tablet cetirizine 10 mg tablet (Zyrtec) 10 mg PO DAILY PRN 08/20/23 12/17/23 History calcitriol 0.25 mcg capsule See Rx Instructions .Route 03/30/24 Rx .COMPLEX #38 caps Allergies Allergy/AdvReac Type Severity Reaction Status Date / Time bethanechol Allergy Mild ITESTINAL Verified 12/17/23 13:56 PROBLEMS Sulfa (Sulfonamide Allergy Mild HIVES Verified 12/17/23 13:56 Antibiotics) sulfamethoxazole Allergy Mild HIVES Verified 12/17/23 13:56 cyclobenzaprine Allergy Unknown Unknown Verified 12/17/23 13:56 fluoxetine Allergy Unknown Unknown Verified 12/17/23 13:56 latex Allergy Unknown Unknown Verified 12/17/23 13:56 meperidine Allergy Unknown Unknown Verified 12/17/23 13:56 naproxen Allergy Unknown Unknown Verified 12/17/23 13:56 trimethoprim Allergy Unknown Unknown Verified 12/17/23 13:56 ADHESIVE TAPE Allergy Mild Unknown Uncoded 12/17/23 13:56 FLU SHOT Allergy Mild HIVES Uncoded 12/17/23 13:56 SMALL POX VACCINE Allergy Mild HIVES Uncoded 12/17/23 13:56 EGGS Allergy Unknown Unknown Uncoded 12/17/23 13:56 SEE NSG NOTES Allergy Unknown Unknown Uncoded 12/17/23 13:56 Vital Signs Vital Signs - 24 hr 04/04/24 02:34 04/04/24 06:38 04/04/24 09:47 Temperature 98.6 F 97.2 F L Pulse Rate 133 H 65 114 H Respiratory Rate 14 17 Blood Pressure 156/85 H 104/56 L 106/57 L Pulse Oximetry 100 95 95 Oxygen Delivery Room Air 04/04/24 11:29 Temperature Pulse Rate 106 H Respiratory Rate 16 Blood Pressure 120/45 L Pulse Oximetry 98 Oxygen Delivery Exam Const: General: cooperative; No acute distress Orientation/consciousness: patient oriented x3 HENMT: Head: normal to inspection Neck: Neck: supple Resp: Auscultation: clear to auscultation bilaterally Cardio: Rate: regular rate Rhythm: regular rhythm GI: Inspection: non-distended GI Palp: Yes Soft to palpation, Yes Tenderness to palpation present (GI) and No Palpable mass present Auscultation: normal bowel sounds Rectal Exam: deferred Other: patient has mild tenderness in the upper abdomen no rebound or guarding Skin: General skin exam: no rashes or lesions noted Neuro: General: patient oriented x3 Extrem: General: no edema Results Labs 04/04/24 11:14 04/04/24 02:48 Labs: Short CBC 04/04/24 04/04/24 Range/Units 02:48 11:14 WBC 11.7 H (4.5-10.0) K/mm3 Hgb 10.9 L 9.3 L (12.0-15.0) g/dL Hct 33.1 L 27.9 L (37.0-47.0) % Plt Count 262 (150-375) k/mm3 BMP 04/04/24 02:48 Sodium 134 L Potassium 4.9 Chloride 107 Carbon Dioxide 19 L BUN 49 H D Creatinine 2.60 H Glucose 136 H Calcium 9.9 Liver Function 04/04/24 Range/Units 02:48 Total Bilirubin 0.8 (0.2-1.3) mg/dL AST 17 (14-36) U/L ALT 11 (6-35) U/L Alkaline Phosphatase 78 (38-126) U/L Albumin 4.2 (3.5-5.1) g/dL
--- NOTE | 2024-04-04 15:54 | WPDANESEPPF ---
Anes - Initial Pre Proc Eval Procedure: Operation Date: 04/04/24 16:00 Proposed Procedures p Esophagogastroduodenoscopy EGD - Cooper Greer MD Date/Time: 04/04/24 15:54 Surgeon: Cooper Greer MD Pre Op Diagnosis: GI bleed, gastroenteritis Patient Data Age: 74 Gender: F Height: 1.5 m Weight: 64.2 kg Last Vital Signs Temp 36.2 C L 04/04/24 06:38 Pulse 106 H 04/04/24 11:29 Resp 16 04/04/24 11:29 BP 120/45 L 04/04/24 11:29 Pulse Ox 98 04/04/24 11:29 O2 Del Method Room Air 04/04/24 02:34 Allergies Allergy/AdvReac Type Severity Reaction Status Date / Time bethanechol Allergy Mild ITESTINAL Verified 04/04/24 16:23 PROBLEMS Sulfa (Sulfonamide Allergy Mild HIVES Verified 04/04/24 16:23 Antibiotics) sulfamethoxazole Allergy Mild HIVES Verified 04/04/24 16:23 cyclobenzaprine Allergy Unknown Unknown Verified 04/04/24 16:23 fluoxetine Allergy Unknown Unknown Verified 04/04/24 16:23 latex Allergy Unknown Unknown Verified 04/04/24 16:23 meperidine Allergy Unknown Unknown Verified 04/04/24 16:23 naproxen Allergy Unknown Unknown Verified 04/04/24 16:23 trimethoprim Allergy Unknown Unknown Verified 04/04/24 16:23 ADHESIVE TAPE Allergy Mild Unknown Uncoded 04/04/24 16:23 FLU SHOT Allergy Mild HIVES Uncoded 04/04/24 16:23 SMALL POX VACCINE Allergy Mild HIVES Uncoded 04/04/24 16:23 EGGS Allergy Unknown Unknown Uncoded 04/04/24 16:23 SEE NSG NOTES Allergy Unknown Unknown Uncoded 04/04/24 16:23 Home Medications ?Medication ?Instructions ?Recorded ?Confirmed ?Type bupropion HCl 100 mg tablet 100 mg PO BID 12/24/20 12/17/23 History cholecalciferol (vitamin D3) 50 50 mcg PO BID 12/24/20 12/17/23 History mcg (2,000 unit) tablet (Vitamin D3) latanoprost 0.005 % eye drops 1 drp EACH EYE DAILY 12/24/20 12/17/23 History (Xalatan) lisinopril 20 mg tablet (Zestril) 20 mg PO DAILY 12/24/20 12/17/23 History meclizine 25 mg tablet 25 mg PO TID PRN dizziness #14 tabs 12/24/20 12/17/23 Rx pantoprazole 40 mg tablet,delayed 40 mg PO QAM 12/24/20 12/17/23 History release (Protonix) pravastatin 40 mg tablet 40 mg PO DAILY 12/24/20 12/17/23 History acetaminophen 325 mg tablet (Mapap 650 mg (2 x 325 mg) PO Q6H PRN 06/15/22 12/17/23 Rx (acetaminophen)) Mild Pain (1-3) Or Fever #30 tabs carvedilol 12.5 mg tablet (Coreg) 12.5 mg PO Q12HR #60 tabs 06/15/22 12/17/23 Rx escitalopram oxalate 10 mg tablet 20 mg (2 x 10 mg) PO DAILY #30 tabs 06/15/22 12/17/23 Rx famotidine 20 mg tablet 20 mg PO Q12HR #30 tabs 06/15/22 12/17/23 Rx gabapentin 300 mg capsule 300 mg PO TID #90 caps 06/15/22 12/17/23 Rx (Neurontin) peg [id number] 1 1 drp EACH EYE Q4H PRN Dry Eye(S) 06/15/22 12/17/23 Rx %-0.2 %-0.2 % eye drops #15 mL (Artificial Tears ([id number])) quetiapine 50 mg tablet 100 mg (2 x 50 mg) PO HS #30 tabs 06/15/22 12/17/23 Rx sodium chloride 1,000 mg soluble 1,000 mg PO QAM #14 tabs 06/15/22 12/17/23 Rx tablet cetirizine 10 mg tablet (Zyrtec) 10 mg PO DAILY PRN 08/20/23 12/17/23 History calcitriol 0.25 mcg capsule See Rx Instructions .Route 03/30/24 Rx .COMPLEX #38 caps Laboratory Tests 04/04/24 04/04/24 02:48 11:14 WBC 11.7 H K/mm3 (4.5-10.0) RBC 3.38 L M/mm3 (4.2-5.4) Hgb 10.9 L g/dL 9.3 L g/dL (12.0-15.0) (12.0-15.0) Hct 33.1 L % 27.9 L % (37.0-47.0) (37.0-47.0) MCV 97.9 fl (80-100) MCH 32.2 pg (26-34) MCHC 32.9 g/dl (32-36) RDW 14.5 % (11.5-14.5) Plt Count 262 k/mm3 (150-375) MPV 10.5 H fl (7.4-10.4) Immature Gran % (Auto) 0.3 % (0-0.5) Neut % (Auto) 81.4 H % (45.5-73.1) Lymph % (Auto) 8.8 L % (18.3-44.2) Mckean % (Auto) 7.2 % (2.6-8.5) Eos % (Auto) 2.0 % (0-4.4) Baso % (Auto) 0.3 % (0.2-1.2) Lymph # (Auto) 1.03 K/mm3 (0.9-3.2) Mckean # (Auto) 0.8 H K/mm3 (0.1-0.6) Eos # (Auto) 0.2 K/mm3 (0-0.3) Baso # (Auto) 0.0 K/mm3 (0.0-0.1) Abs Immat Gran (auto) 0.04 H K/mm3 (0.00-0.031) Absolute Neuts (auto) 9.5 H K/mm3 (1.3-6.7) Absolute Nucleated RBC 0.000 K/mm3 (0.0-0.012) Nucleated RBC % 0.0 % (0.0-0.2) PT 14.0 Seconds (11.1-14.7) INR 1.0 APTT 26.9 Seconds (22.3-36.8) Sodium 134 L mmol/L (137-145) Potassium 4.9 mmol/L (3.4-5.0) Chloride 107 mmol/L (98-107) Carbon Dioxide 19 L mmol/L (22-30) Anion Gap 8 mmol/L (4-12) BUN 49 H D mg/dL (7-17) Creatinine 2.60 H mg/dL (0.7-1.0) Estim Creat Clear Calc Not Reportable Estimated GFR 18 L (59 - ) Glucose 136 H mg/dL (65-110) Calcium 9.9 mg/dL (8.4-10.2) Total Bilirubin 0.8 mg/dL (0.2-1.3) AST 17 U/L (14-36) ALT 11 U/L (6-35) Alkaline Phosphatase 78 U/L (38-126) Total Protein 7.0 g/dL (6.3-8.2) Albumin 4.2 g/dL (3.5-5.1) Blood Type A Positive Antibody Screen Negative Patient hx anesthesia problems: none Family hx anesthesia problems: none Results Review: All pre-operative results and documents have been reviewed as part of the pre-operative evaluation. [facility] Past Medical History Medical History (Updated 04/04/24 @ 16:05 by Billy Thakkar MD) Diabetes type 2, controlled Restless leg syndrome Chronic kidney disease, stage IV (severe) Hyperlipidemia Vitamin D deficiency Raynaud's disease Anemia Depression Degenerative disc disease Cervical neck fusion in 2006 Arthritis Musculoskeletal disorder Bilateral rotator cuff surgery, bilateral carpal tunnel, arthritis, left thumb subluxed Ferrell's esophagus Pneumonia Hypertension Heart murmur Migraines Last migraine 2006 Glaucoma Cataracts, bilateral Surgical History Surgical History (Updated 04/04/24 @ 15:01 by Francy Santos PA-C) History of cervical spinal surgery History of orthopedic surgery Lower back disc removal 1986, repair of spinal leak 1987 History of appendectomy History of tonsillectomy Family History Family History Sibling Family history of thyroid disease Family history of obesity Family history of osteoporosis Family history of migraine headaches Hypertension Family history of elevated blood lipids Family history of alcoholism Family history of diabetes mellitus in first degree relative Family history of coronary artery disease Father Family history of osteoporosis Family history of lung cancer Mother Family history of osteoarthritis Family history of malignant melanoma Family history of atrial fibrillation Social History Social History (Updated 04/04/24 @ 15:06 by Francy Santos PA-C) Social History: Surrogate medical decision maker: Code status: Full code. Smoking status: Never smoker Second hand tobacco smoke exposure: Yes (father and ) Alcohol intake: never Substance use: never Substance use type: other Other substance usage details: cbd gummies without thc Do You Feel Safe in your Home?: Yes Lack of Transportation: No Lack of Food: Never True Current Housing: I Have Housing Concerned About Future Housing: No Difficulty Paying Gas/Electric Bills: No Difficulty Paying for Meds: No Currently Unemployed: No Education: Associate Degree Difficulty w/ Childcare or Family Care: No Living arrangements: with family Spiritual care concerns: Yes (cheondoism) Anes - Eval Final PreProcedure Day of Procedure 04/04/24 15:54 Patient weight: overweight Heart: regular rate and rhythm Lungs: clear to auscultation Airway: Mallampati scale class II Neurological: alert and oriented Last oral intake: >/= 8 hours ASA classification: IV Emergent: no Anesthetic plan: proceed Anesthesia type and monitoring: general GIVS and standard monitoring Results Review: All pre-operative results and documents have been reviewed as part of the pre-operative evaluation. Informed Consent: The patient's anesthetic plan and its attendant risks and benefits were discussed with the patient/family/POA. Questions were solicited and answers provided to the satisfaction of the patient/family/POA.
[2024-04-04] MEDS: LACTATED RINGERS 1,000 ML 150 ML IV CONT (16:15)
--- NOTE | 2024-04-04 17:00 | ADMGEN ---
This patient, Kandace Cole, was admitted to Medical Room 340-01. Patient/family oriented to hospital policies and general routines including ID bracelet, bed and alarms, visiting hours, pain management, procedures, bathroom and other care routines, personal items, smoking policy, room service/diet, and visiting hours. Information on how to activate the Rapid Response Team has been discussed. Patient/Family are encouraged to report perceived risks to care and to ask questions if they do not understand what they are told or what they should do.
[2024-04-04 17:06] LABS: Glucose Point of Care 101 mg/dl (65-105)
[2024-04-04 17:46] LABS: Hematocrit 27.3 % (37.0-47.0); Hemoglobin 8.9 g/dL (12.0-15.0)
[2024-04-04 18:31] LABS: Glucose Point of Care 146 mg/dl (65-105)
[2024-04-04] MEDS: PANTOPRAZOLE SODIUM IV 40 MG VIAL IV PUSH (21:25)
[2024-04-04] MEDS: carvediloL 12.5 MG TABLET PO (21:26)
[2024-04-04] MEDS: FAMOTIDINE 20 MG TABLET PO (21:27)
[2024-04-04] MEDS: QUEtiapine FUMARATE 100 MG TABLET PO (21:27)
[2024-04-04 22:19] LABS: Glucose Point of Care 65 mg/dl (65-105)
[2024-04-04] MEDS: DEXTROSE 5%/0.9% SOD CHL 1,000 ML 75 ML IV CONT (22:48)
[2024-04-04 23:48] LABS: Hematocrit 26.4 % (37.0-47.0); Hemoglobin 8.7 g/dL (12.0-15.0)
[2024-04-05] VITALS (12 sets, daily range): BP systolic 87–102; BP diastolic 42–56; PULSE 56–96; RESP 16–18; TEMP 36.1–36.8; O2SAT 94–100
[2024-04-05] MEDS: GABAPENTIN 300 MG CAPSULE PO ×3 (04:26→20:43)
[2024-04-05] MEDS: metroNIDAZOLE 500 MG/ISO 100ML 500 MG/100 ML BAG 100 MG IVPB ×3 (04:27→20:43)
[2024-04-05 06:24] LABS: Basophils Percent Auto 0.3 % (0.2-1.2); Eosinophils Absolute Auto 0.3 K/mm3 (0-0.3); Eosinophils Percent Auto 2.5 % (0-4.4); Hematocrit 26.7 % (37.0-47.0); Hemoglobin 7.9 g/dL (12.0-15.0); Immature Granulocyte Absolute 0.05 K/mm3 (0.00-0.031); Immature Granulocyte Percent A 0.4 % (0-0.5); Lymphocytes Absolute Auto 1.27 K/mm3 (0.9-3.2); Lymphocytes Percent Auto 9.9 % (18.3-44.2); Mean Corpuscular HGB Conc 29.6 g/dl (32-36); Mean Corpuscular Hemoglobin 30.9 pg (26-34); Mean Corpuscular Volume 104.3 fl (80-100); Mean Platelet Volume 10.6 fl (7.4-10.4); Monocytes Percent Auto 7.9 % (2.6-8.5); Neutrophils Absolute Auto 10.2 K/mm3 (1.3-6.7); Platelet Count Result 168 k/mm3 (150-375); Red Blood Count 2.56 M/mm3 (4.2-5.4); Red Cell Distribution Width 14.6 % (11.5-14.5); White Blood Count 12.9 K/mm3 (4.5-10.0)
[2024-04-05 06:33] LABS: Anion Gap 3 mmol/L (4-12); Blood Urea Nitrogen 46 mg/dL (7-17); Calcium 8.3 mg/dL (8.4-10.2); Carbon Dioxide 16 mmol/L (22-30); Chloride 109 mmol/L (98-107); Estimated Glomerular Filt Rate 15; Glucose 108 mg/dL (65-110); Magnesium 1.1 mg/dL (1.6-2.3); Potassium 5.1 mmol/L (3.4-5.0); Sodium 128 mmol/L (137-145)
[2024-04-05 06:43] LABS: Glucose Point of Care 163 mg/dl (65-105)
[2024-04-05 06:44] LABS: Glucose Point of Care 122 mg/dl (65-105)
[2024-04-05] MEDS: PRAVASTATIN SODIUM 20 MG TABLET 40 MG PO (09:03)
[2024-04-05] MEDS: SODIUM CHLORIDE 1 GM TABLET PO (09:03)
[2024-04-05] MEDS: PANTOPRAZOLE SODIUM IV 40 MG VIAL IV PUSH ×2 (09:03→20:43)
[2024-04-05] MEDS: ESCITALOPRAM OXALATE 10 MG TABLET 20 MG PO (09:04)
[2024-04-05] MEDS: carvediloL 12.5 MG TABLET PO (09:04)
[2024-04-05] MEDS: CHOLECALCIFEROL 1,000 UNITS TABLET 2000 UNITS PO ×2 (09:04→16:11)
[2024-04-05] MEDS: buPROPion HCL 100 MG TABLET PO ×2 (09:04→16:11)
[2024-04-05] MEDS: FAMOTIDINE 20 MG TABLET PO ×2 (09:04→20:43)
[2024-04-05] MEDS: LATANOPROST 0.005% OP SOLN 2.5 ML BTL 1 DROP EACH EYE (09:05)
--- NOTE | 2024-04-05 09:10 | P.PNIM_ITS ---
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 This type of lesion can erode and cause rectal bleeding. * GI consulted * GI recommended ciprofloxacin and Flagyl * will need follow-up colonoscopy in 6-8 weeks after infectious process resulting unless her hemoglobin continues to trend down * PPI BID * clear liquid diet * WBC 12.2 today * Stool studies pending * bright red blood in stool reported * monitoring HGB (3) Chronic anemia: Code(s): D64.9 - Anemia, unspecified Status: Acute Assessment and Plan: patient's baseline is usually hemoglobin of 10 to 11 likely secondary to her chronic kidney disease but possible active GI bleed currently * Monitor HGB * Transfuse PRBC if Hgb <7.0 * hemodynamically stable (4) Chronic kidney disease, stage IV (severe): Code(s): N18.4 - Chronic kidney disease, stage 4 (severe) Status: Acute Assessment and Plan: * Gentle IV hydration. * Baseline around 2.00 currently 3.00 04/05/24 * Avoid nephrotoxic drugs. * Monitor antihypertensive drug therapy. * Avoid NSAIDs. * Routine CMP monitoring GFR. * Monitor electrolytes especially potassium. * Antibiotic doses depending on creatinine clearance. * Pharmacy does medications. * Routine follow-up with Nephrology as an outpatient. 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 Status: Acute Assessment and Plan: * HX of and currently seen on EGD * PPI * Clear liquids * serial H&H (6) Hypertension: Code(s): I10 - Essential (primary) hypertension Status: Acute Assessment and Plan: * soft BP * holding Lisinopril * BP per unit protocol (7) Hypomagnesemia: Code(s): E83.42 - Hypomagnesemia Status: Acute Assessment and Plan: * Mag 1.1 * replenished with 4g * trend and replenish as needed Plan Code status: Full code per patient DVT prophylaxis: SCD Stress ulcer prophylaxis: Protonix 40 BID PT/OT notes: NA Disposition: Patient continues admission for possible GI bleeding and anemia underwent EGD that showed Ferrell's esophagus will need to continue with PPI b.i.d. and serial H&Hs transfuse as needed also being treated for colitis continue with clear liquid diet at this time will attempt to advance as tolerated. plan will be to discharge back to home when medically stable. Time Spent With Patient Time with patient: 15 - 25 minutes Subjective Date/time seen: 04/05/24 09:10 Interval history: patient is a 74-year-old female who was admitted for further evaluation and treatment of possible GI bleed plan for EGD and serial H&H. 04/05/2023: Assumed Care Patient denied any SOB, Dizziness, CP but did endorse bright red blood in stool. EGD yesterday, HGB 7.9 repeat 8.1. Patient still with weakness PT/OT ordered. Patient still reports ABD tenderness but tolerating diet. Review of Systems Review of Systems: All systems reviewed & are unremarkable except as noted in HPI and below Exam Narrative: * GENERAL: Alert and oriented x 3 chronically ill looking pleasant female. No acute distress. * EYES: EOMI. No scleral icterus. PERRLA. * HEENT: Moist mucous membranes. * LUNGS: Clear to auscultation bilaterally. No accessory muscle use. * CARDIOVASCULAR: Regular rate and rhythm. No murmur. No JVD. S1-S2 * ABDOMEN: Soft, moderate tenderness and non-distended. No palpable masses. * EXTREMITIES: No edema. Non-tender * SKIN: No rashes or lesions. Skin warm, dry. * NEUROLOGIC: No focal neurological deficits. CN II-XII grossly intact * PSYCHIATRIC: Appropriate mood and affect. Good judgement and insight. Objective Data Vital Signs Vital Signs: Vital Signs - 24 hr 04/04/24 09:47 04/04/24 11:29 04/04/24 16:13 Temperature 97.1 F L Pulse Rate 114 H 106 H 103 H Respiratory Rate 17 16 18 Blood Pressure 106/57 L 120/45 L 117/39 L Pulse Oximetry 95 98 100 Oxygen Delivery Room Air 04/04/24 16:26 04/04/24 16:36 04/04/24 16:46 Temperature Pulse Rate 104 H 99 96 Respiratory Rate 16 12 11 L Blood Pressure 117/39 L 112/49 L 130/46 L Pulse Oximetry 100 100 100 Oxygen Delivery Room Air Room Air Room Air 04/04/24 17:00 04/04/24 17:00 04/04/24 20:00 Temperature Pulse Rate 109 H Respiratory Rate Blood Pressure Pulse Oximetry Oxygen Delivery Room Air Room Air 04/04/24 20:00 04/04/24 21:20 04/04/24 21:23 Temperature 97.6 F Pulse Rate 104 H 106 H 120 H Respiratory Rate 18 Blood Pressure 102/43 L 120/69 Pulse Oximetry 100 97 Oxygen Delivery 04/04/24 21:26 04/04/24 21:29 04/05/24 00:00 Temperature Pulse Rate 105 H 105 H 86 Respiratory Rate Blood Pressure 116/57 L Pulse Oximetry Oxygen Delivery 04/05/24 04:20 04/05/24 07:59 04/05/24 08:00 Temperature 98.2 F Pulse Rate 96 89 Respiratory Rate 18 Blood Pressure 102/49 L Pulse Oximetry 94 Oxygen Delivery Room Air Intake/Output Intake/Output: Intake & Output 04/02/24 04/03/24 04/04/24 04/05/24 23:59 23:59 23:59 23:59 Intake Total 1875.0 400 Balance 1875.0 400 Meds/Results Medications: Active Medications Generic Name Dose Route Start Last Admin Trade Name Freq PRN Reason Stop Dose Admin Acetaminophen 650 mg 04/04/24 12:10 Acetaminophen 325 Mg Tablet PO Q4H PRN Mild Pain (1-3) or Fever Artificial Tears 1 drop 04/04/24 20:15 Artificial Tears Ophth Soln 15 Ml Bottle EACH EYE Q4H PRN Dry Eye(S) Bupropion HCl 100 mg 04/05/24 09:00 04/05/24 09:04 Bupropion Hcl 100 Mg Tablet PO 100 mg BID JUAN PABLO Administration Calcitriol 0.25 mcg 04/06/24 09:00 Calcitriol 0.25 Mcg Capsule BY MOUTH [email or web address] JUAN PABLO Carvedilol 12.5 mg 04/04/24 21:00 04/05/24 09:04 Carvedilol 12.5 Mg Tablet PO 12.5 mg Q12HR JUAN PABLO Administration Dextrose 12.5 gm 04/04/24 21:51 Dextrose 50% 25 Gm/50 Ml Syringe IV PUSH PRN PRN Hypoglycemia Protocol Escitalopram Oxalate 20 mg 04/05/24 09:00 04/05/24 09:04 Escitalopram Oxalate 10 Mg Tablet PO 20 mg DAILY JUAN PABLO Administration Famotidine 20 mg 04/04/24 21:00 04/05/24 09:04 Famotidine 20 Mg Tablet PO 20 mg Q12HR JUAN PABLO Administration Gabapentin 300 mg 04/05/24 06:00 04/05/24 04:26 Gabapentin 300 Mg Capsule PO 300 mg Q8HR JUAN PABLO Administration Glucagon 1 mg 04/04/24 21:51 Glucagon For Inj 1 Mg Vial IM PRN PRN Hypoglycemia Protocol Glucose 15 gm 04/04/24 21:51 Glucose Oral Gel 15 Gm Of Glucse In 37.5 Gm Tube PO PRN PRN Hypoglycemia Protocol Hydromorphone HCl 0.5 mg 04/04/24 12:10 Hydromorphone Hcl Inj (*Crx) 1 Mg/Ml Syr IV PUSH Q4H PRN Pain Rated 7-10 Metronidazole 500 mg in 100 mls @ 100 mls/hr 04/04/24 22:00 04/05/24 05:27 Flagyl 500 Mg/Iso Soln 100 Ml IVPB Infused Q8H JUAN PABLO Infusion Dextrose 1,000 mls @ 100 mls/hr 04/04/24 21:51 Dextrose 5% 1,000 Ml IVPB PRN PRN Hypoglycemia Protocol Dextrose/Sodium Chloride 1,000 mls @ 75 mls/hr 04/04/24 21:55 04/04/24 22:48 Dextrose 5% Sodium Chloride 0.9% IV CONT 75 mls/hr .[id number] JUAN PABLO Administration Ciprofloxacin/Dextrose 200 mls @ 200 mls/hr 04/05/24 09:10 Cipro 400 Mg/D5w 200 Ml IVPB Q12H JUAN PABLO Magnesium Sulfate 4 gm in 100 mls @ 25 mls/hr 04/05/24 09:07 Magnesium Sulf 4 Gm/[id number] IVPB 04/05/24 13:06 ONCE ONE Latanoprost 1 drop 04/05/24 09:00 04/05/24 09:05 Latanoprost 0.005% Op Soln 2.5 Ml Btl EACH EYE 1 drop DAILY JUAN PABLO Administration Loratadine 10 mg 04/04/24 20:25 Loratadine 10 Mg Tablet PO QAM PRN allergy symptoms Ondansetron HCl 4 mg 04/04/24 12:10 Ondansetron Inj 4 Mg/2 Ml Vial IV PUSH Q4H PRN Nausea Pantoprazole Sodium 40 mg 04/04/24 21:00 04/05/24 09:03 Pantoprazole Sodium Iv 40 Mg Vial IV PUSH 40 mg Q12HR JUAN PABLO Administration Pravastatin Sodium 40 mg 04/05/24 09:00 04/05/24 09:03 Pravastatin Sodium 20 Mg Tablet PO 40 mg DAILY JUAN PABLO Administration Quetiapine Fumarate 100 mg 04/04/24 21:00 04/04/24 21:27 Quetiapine Fumarate 100 Mg Tablet PO 100 mg HS JUAN PABLO Administration Sodium Chloride 1 gm 04/05/24 09:00 04/05/24 09:03 Sodium Chloride 1 Gm Tablet PO 1 gm QAM JUAN PABLO Administration Vitamin D 2,000 units 04/05/24 09:00 04/05/24 09:04 Cholecalciferol 1,000 Units Tablet PO 2,000 units BID JUAN PABLO Administration Radiology Results: ITS Impressions Abdomen/Pelvis CT 04/04/24 11:24 IMPRESSION: Approximately 11.4 x 24 mm hepatic flexure colonic lipoma Nonspecific thickening of the wall of the sigmoid and descending colon which may be due to nonspecific colitis Mild sigmoid colon diverticulosis; no evidence of diverticulitis Status post hysterectomy Chest X-Ray 04/04/24 11:31 IMPRESSION: No active cardiopulmonary disease No intraperitoneal free air is detected Labs Labs: Laboratory Results - last 24 hr 04/04/24 04/04/24 04/04/24 11:14 16:46 17:40 WBC RBC Hgb 9.3 L 8.9 L Hct 27.9 L 27.3 L MCV MCH MCHC RDW Plt Count MPV Immature Gran % (Auto) Neut % (Auto) Lymph % (Auto) [place] % (Auto) Eos % (Auto) Baso % (Auto) Lymph # (Auto) [place] # (Auto) Eos # (Auto) Baso # (Auto) Abs Immat Gran (auto) Absolute Neuts (auto) Absolute Nucleated RBC Nucleated RBC % Sodium Potassium Chloride Carbon Dioxide Anion Gap BUN Creatinine Estim Creat Clear Calc Estimated GFR Glucose POC Capillary Glucose 101 Calcium Magnesium TSH (Reflex) 3.160 04/04/24 04/04/24 04/04/24 18:16 21:36 23:10 WBC RBC Hgb Hct MCV MCH MCHC RDW Plt Count MPV Immature Gran % (Auto) Neut % (Auto) Lymph % (Auto) [place] % (Auto) Eos % (Auto) Baso % (Auto) Lymph # (Auto) [place] # (Auto) Eos # (Auto) Baso # (Auto) Abs Immat Gran (auto) Absolute Neuts (auto) Absolute Nucleated RBC Nucleated RBC % Sodium Potassium Chloride Carbon Dioxide Anion Gap BUN Creatinine Estim Creat Clear Calc Estimated GFR Glucose POC Capillary Glucose 146 H 65 163 H Calcium Magnesium TSH (Reflex) 04/04/24 04/05/24 04/05/24 23:39 04:33 05:49 WBC 12.9 H RBC 2.56 L Hgb 8.7 L 7.9 L Hct 26.4 L 26.7 L MCV 104.3 H D MCH 30.9 MCHC 29.6 L RDW 14.6 H Plt Count 168 MPV 10.6 H Immature Gran % (Auto) 0.4 Neut % (Auto) 79.0 H Lymph % (Auto) 9.9 L [place] % (Auto) 7.9 Eos % (Auto) 2.5 Baso % (Auto) 0.3 Lymph # (Auto) 1.27 [place] # (Auto) 1.0 H Eos # (Auto) 0.3 Baso # (Auto) 0.0 Abs Immat Gran (auto) 0.05 H Absolute Neuts (auto) 10.2 H Absolute Nucleated RBC 0.000 Nucleated RBC % 0.0 Sodium 128 L Potassium 5.1 H Chloride 109 H Carbon Dioxide 16 L Anion Gap 3 L BUN 46 H Creatinine 3.00 H Estim Creat Clear Calc Not Reportable Estimated GFR 15 L Glucose 108 POC Capillary Glucose 122 H Calcium 8.3 L Magnesium 1.1 L TSH (Reflex) Quality VTE Prophylaxis VTE prophylaxis: mechanical ordered -Patient's previous records reviewed on admission -ER notes reviewed in detail on admission -discussed all findings and current treatment plan with patient/Family/POA -Consultations reviewed for recommendations -Patient's disposition for safe discharge discussed with upper caser Dictation performed by [employer] direct speech recognition software, therefore physician credentialing specialist variants and typographical errors may occur. Hospitalist MIPS Advance Care Plan I have confirmed that the patient's Advanced Care Plan is present, code status is documented, or surrogate decision maker is listed in patient medical record.: Yes Medication Reconciliation I have utilized all available resources to obtain, update and review the patients current medications (includes all prescriptions, OTC, herbals, cannabis, and nutritional supplements).: Yes The patient is not eligible for med reconciliation; the patient is in a emergent medical situation where delaying treatment would jeopardize the patients health.: No
[2024-04-05] MEDS: CIPROFLOXACIN 400 MG/D5W 200ML 200 ML 200 MG IVPB (09:38)
[2024-04-05 09:40] LABS: Hematocrit 25.6 % (37.0-47.0); Hemoglobin 8.1 g/dL (12.0-15.0)
[2024-04-05] MEDS: MAGNESIUM SULF 4 GM/WATER100ML 4 GM/100 ML BAG IVPB (10:42)
--- NOTE | 2024-04-05 11:25 | P.PNAN_ITS ---
Anes - Prog Note Post-Op Date/Time: 04/05/24 11:25 Cardiovascular status: normal Respiratory status: normal Airway patency: baseline Mental status: baseline Post-Op hydration status: normal Vital Signs: Last Vital Signs Temp 36.8 C 04/05/24 04:20 Pulse 89 04/05/24 08:00 Resp 18 04/05/24 04:20 BP 102/49 L 04/05/24 04:20 Pulse Ox 94 04/05/24 04:20 O2 Del Method Room Air 04/05/24 07:59 Pain Score (VAS): 1-2 I/O: Intake & Output 04/04/24 04/05/24 04/05/24 23:59 07:59 15:59 Intake Total 675.0 400 50 Balance 675.0 400 50 Laboratory Tests 04/05/24 09:24 04/05/24 05:49 04/04/24 04/04/24 04/04/24 16:46 17:40 18:16 WBC RBC Hgb 8.9 L Hct 27.3 L MCV MCH MCHC RDW Plt Count MPV Immature Gran % (Auto) Neut % (Auto) Lymph % (Auto) [place] % (Auto) Eos % (Auto) Baso % (Auto) Lymph # (Auto) [place] # (Auto) Eos # (Auto) Baso # (Auto) Abs Immat Gran (auto) Absolute Neuts (auto) Absolute Nucleated RBC Nucleated RBC % Sodium Potassium Chloride Carbon Dioxide Anion Gap BUN Creatinine Estim Creat Clear Calc Estimated GFR Glucose POC Capillary Glucose 101 146 H Calcium Magnesium TSH (Reflex) 3.160 04/04/24 04/04/24 04/04/24 21:36 23:10 23:39 WBC RBC Hgb 8.7 L Hct 26.4 L MCV MCH MCHC RDW Plt Count MPV Immature Gran % (Auto) Neut % (Auto) Lymph % (Auto) [place] % (Auto) Eos % (Auto) Baso % (Auto) Lymph # (Auto) [place] # (Auto) Eos # (Auto) Baso # (Auto) Abs Immat Gran (auto) Absolute Neuts (auto) Absolute Nucleated RBC Nucleated RBC % Sodium Potassium Chloride Carbon Dioxide Anion Gap BUN Creatinine Estim Creat Clear Calc Estimated GFR Glucose POC Capillary Glucose 65 163 H Calcium Magnesium TSH (Reflex) 04/05/24 04/05/24 04/05/24 04:33 05:49 09:24 WBC 12.9 H RBC 2.56 L Hgb 7.9 L 8.1 L Hct 26.7 L 25.6 L MCV 104.3 H D MCH 30.9 MCHC 29.6 L RDW 14.6 H Plt Count 168 MPV 10.6 H Immature Gran % (Auto) 0.4 Neut % (Auto) 79.0 H Lymph % (Auto) 9.9 L [place] % (Auto) 7.9 Eos % (Auto) 2.5 Baso % (Auto) 0.3 Lymph # (Auto) 1.27 [place] # (Auto) 1.0 H Eos # (Auto) 0.3 Baso # (Auto) 0.0 Abs Immat Gran (auto) 0.05 H Absolute Neuts (auto) 10.2 H Absolute Nucleated RBC 0.000 Nucleated RBC % 0.0 Sodium 128 L Potassium 5.1 H Chloride 109 H Carbon Dioxide 16 L Anion Gap 3 L BUN 46 H Creatinine 3.00 H Estim Creat Clear Calc Not Reportable Estimated GFR 15 L Glucose 108 POC Capillary Glucose 122 H Calcium 8.3 L Magnesium 1.1 L TSH (Reflex) Post-procedural complaints: none Patient Feedback: Patient satisfied with anesthetic care.
[2024-04-05 14:46] LABS: Glucose Point of Care 238 mg/dl (65-105)
--- NOTE | 2024-04-05 14:46 | P.PNGI_ITS ---
Progress Note: A&P Assessment and Plan (1) BRBPR (bright red blood per rectum): Code(s): K62.5 - Hemorrhage of anus and rectum Status: Acute (2) Colitis: Code(s): K52.9 - Noninfective gastroenteritis and colitis, unspecified Status: Acute (3) Acute GI bleeding: Code(s): K92.2 - Gastrointestinal hemorrhage, unspecified Status: Acute (4) Chronic anemia: Code(s): D64.9 - Anemia, unspecified Status: Acute (5) Chronic kidney disease, stage IV (severe): Code(s): N18.4 - Chronic kidney disease, stage 4 (severe) Status: Acute Plan Nausea vomiting is better continue with the PPI once a day Diarrhea no bowel movements has been noted in the hospital stool studies are still pending Colitis on the imaging continue with the antibiotics Anemia patient H&H is stable Renal failure was advised to see a commercial marketing specialist for worsening renal functions Continue with the conservative management from the GI perspective I would advise patient to have an upper endoscopy and colonoscopy in 6 to 8 weeks as outpatient for Ferrell's esophagus as well as for colitis follow-up Regular GI team will assume patient care tomorrow Subjective Date/time seen: 04/05/24 14:46 Interval history: Patient is doing well some abdominal discomfort denies any nausea vomiting tolerating some clear liquids. According to her she did not have any bowel movement since she came to the hospital Patient is being seen for hematemesis status post upper endoscopy yesterday that did not show any blood or ulcers. Patient also has colitis on the CAT scan currently being treated with antibiotics no bowel movements have been witnessed in the hospital Review of Systems Constitutional: Constitutional: Denies chills, Denies fatigue, Denies fever(s), Denies headache(s), Denies malaise, Denies weight gain and Denies weight loss Eyes: Eyes: Denies change in vision ENT: Denies dizziness, Denies headache(s) and Reports other (No change in hearing) Cardiovascular: Cardiovascular: Denies chest pain, Denies dyspnea and Reports other (denies palpitations, denies orthopnea) Respiratory: Respiratory: Denies cough, Denies dyspnea and Reports other (denies sputum production, denies hemoptysis) Gastrointestinal: Gastrointestinal: Reports as per HPI Genitourinary: Genitourinary: Denies hematuria, Denies dysuria and Denies urinary incontinence Musculoskeletal: Musculoskeletal: Reports other (denies extremity edema, denies myalgia) Integumentary/Breasts: Skin/Breast: Denies new lesions and Denies rash Neurologic: Denies dizziness, Denies headache(s) and Denies seizure-like activity Endocrine: Endocrine: Denies fatigue Hematologic/Lymphatic: Hematologic/Lymphatic: Denies easy bleeding and Denies easy bruising Exam Const: General: cooperative; No acute distress Orientation/consciousness: patient oriented x3 HENMT: Head: normal to inspection Neck: Neck: supple Resp: Auscultation: clear to auscultation bilaterally Cardio: Rate: regular rate Rhythm: regular rhythm GI: Inspection: non-distended GI Palp: Yes Soft to palpation, No Tenderness to palpation present (GI) and No Palpable mass present Auscultation: normal bowel sounds Rectal Exam: deferred Skin: General skin exam: no rashes or lesions noted Neuro: General: patient oriented x3 Extrem: General: no edema Objective Data Vital Signs Vital Signs: Vital Signs - 24 hr 04/04/24 16:13 04/04/24 16:26 04/04/24 16:36 Temperature 97.1 F L Pulse Rate 103 H 104 H 99 Respiratory Rate 18 16 12 Blood Pressure 117/39 L 117/39 L 112/49 L Pulse Oximetry 100 100 100 Oxygen Delivery Room Air Room Air Room Air 04/04/24 16:46 04/04/24 17:00 04/04/24 17:00 Temperature Pulse Rate 96 109 H Respiratory Rate 11 L Blood Pressure 130/46 L Pulse Oximetry 100 Oxygen Delivery Room Air Room Air 04/04/24 20:00 04/04/24 20:00 04/04/24 21:20 Temperature 97.6 F Pulse Rate 104 H 106 H Respiratory Rate 18 Blood Pressure 102/43 L Pulse Oximetry 100 Oxygen Delivery Room Air 04/04/24 21:23 04/04/24 21:26 04/04/24 21:29 Temperature Pulse Rate 120 H 105 H 105 H Respiratory Rate Blood Pressure 120/69 116/57 L Pulse Oximetry 97 Oxygen Delivery 04/05/24 00:00 04/05/24 04:20 04/05/24 07:59 Temperature 98.2 F Pulse Rate 86 96 Respiratory Rate 18 Blood Pressure 102/49 L Pulse Oximetry 94 Oxygen Delivery Room Air 04/05/24 08:00 04/05/24 12:00 Temperature Pulse Rate 89 72 Respiratory Rate Blood Pressure Pulse Oximetry Oxygen Delivery Intake/Output Intake/Output: Intake & Output 04/02/24 04/03/24 04/04/24 04/05/24 23:59 23:59 23:59 23:59 Intake Total 1875.0 890 Balance 1875.0 890 Meds/Results Medications: Active Medications Generic Name Dose Route Start Last Admin Trade Name Freq PRN Reason Stop Dose Admin Acetaminophen 650 mg 04/04/24 12:10 Acetaminophen 325 Mg Tablet PO Q4H PRN Mild Pain (1-3) or Fever Artificial Tears 1 drop 04/04/24 20:15 Artificial Tears Ophth Soln 15 Ml Bottle EACH EYE Q4H PRN Dry Eye(S) Bupropion HCl 100 mg 04/05/24 09:00 04/05/24 09:04 Bupropion Hcl 100 Mg Tablet PO 100 mg BID JUAN PABLO Administration Calcitriol 0.25 mcg 04/06/24 09:00 Calcitriol 0.25 Mcg Capsule BY MOUTH [id number] JUAN PABLO Carvedilol 12.5 mg 04/04/24 21:00 04/05/24 09:04 Carvedilol 12.5 Mg Tablet PO 12.5 mg Q12HR JUAN PABLO Administration Dextrose 12.5 gm 04/04/24 21:51 Dextrose 50% 25 Gm/50 Ml Syringe IV PUSH PRN PRN Hypoglycemia Protocol Escitalopram Oxalate 20 mg 04/05/24 09:00 04/05/24 09:04 Escitalopram Oxalate 10 Mg Tablet PO 20 mg DAILY JUAN PABLO Administration Famotidine 20 mg 04/04/24 21:00 04/05/24 09:04 Famotidine 20 Mg Tablet PO 20 mg Q12HR JUAN PABLO Administration Gabapentin 300 mg 04/05/24 06:00 04/05/24 13:23 Gabapentin 300 Mg Capsule PO 300 mg Q8HR JUAN PABLO Administration Glucagon 1 mg 04/04/24 21:51 Glucagon For Inj 1 Mg Vial IM PRN PRN Hypoglycemia Protocol Glucose 15 gm 04/04/24 21:51 Glucose Oral Gel 15 Gm Of Glucse In 37.5 Gm Tube PO PRN PRN Hypoglycemia Protocol Hydromorphone HCl 0.5 mg 04/04/24 12:10 Hydromorphone Hcl Inj (*Crx) 1 Mg/Ml Syr IV PUSH Q4H PRN Pain Rated 7-10 Metronidazole 500 mg in 100 mls @ 100 mls/hr 04/04/24 22:00 04/05/24 13:23 Flagyl 500 Mg/Iso Soln 100 Ml IVPB 100 mls/hr Q8H JUAN PABLO Administration Dextrose 1,000 mls @ 100 mls/hr 04/04/24 21:51 Dextrose 5% 1,000 Ml IVPB PRN PRN Hypoglycemia Protocol Dextrose/Sodium Chloride 1,000 mls @ 75 mls/hr 04/04/24 21:55 04/05/24 13:01 Dextrose 5% Sodium Chloride 0.9% IV CONT Not Given .[id number] JUAN PABLO Ciprofloxacin/Dextrose 200 mls @ 200 mls/hr 04/05/24 09:00 04/05/24 10:38 Cipro 400 Mg/D5w 200 Ml IVPB Infused Q24H JUAN PABLO Infusion Latanoprost 1 drop 04/05/24 09:00 04/05/24 09:05 Latanoprost 0.005% Op Soln 2.5 Ml Btl EACH EYE 1 drop DAILY JUAN PABLO Administration Loratadine 10 mg 04/04/24 20:25 Loratadine 10 Mg Tablet PO QAM PRN allergy symptoms Ondansetron HCl 4 mg 04/04/24 12:10 Ondansetron Inj 4 Mg/2 Ml Vial IV PUSH Q4H PRN Nausea Pantoprazole Sodium 40 mg 04/04/24 21:00 04/05/24 09:03 Pantoprazole Sodium Iv 40 Mg Vial IV PUSH 40 mg Q12HR JUAN PABLO Administration Pravastatin Sodium 40 mg 04/05/24 09:00 04/05/24 09:03 Pravastatin Sodium 20 Mg Tablet PO 40 mg DAILY JUAN PABLO Administration Quetiapine Fumarate 100 mg 04/04/24 21:00 04/04/24 21:27 Quetiapine Fumarate 100 Mg Tablet PO 100 mg HS JUAN PABLO Administration Sodium Chloride 1 gm 04/05/24 09:00 04/05/24 09:03 Sodium Chloride 1 Gm Tablet PO 1 gm QAM JUAN PABLO Administration Vitamin D 2,000 units 04/05/24 09:00 04/05/24 09:04 Cholecalciferol 1,000 Units Tablet PO 2,000 units BID JUAN PABLO Administration Radiology Results: ITS Impressions Abdomen/Pelvis CT 04/04/24 11:24 IMPRESSION: Approximately 11.4 x 24 mm hepatic flexure colonic lipoma Nonspecific thickening of the wall of the sigmoid and descending colon which may be due to nonspecific colitis Mild sigmoid colon diverticulosis; no evidence of diverticulitis Status post hysterectomy Chest X-Ray 04/04/24 11:31 IMPRESSION: No active cardiopulmonary disease No intraperitoneal free air is detected Labs Labs: Laboratory Results - last 24 hr 04/04/24 04/04/24 04/04/24 16:46 17:40 18:16 WBC RBC Hgb 8.9 L Hct 27.3 L MCV MCH MCHC RDW Plt Count MPV Immature Gran % (Auto) Neut % (Auto) Lymph % (Auto) [place] % (Auto) Eos % (Auto) Baso % (Auto) Lymph # (Auto) [place] # (Auto) Eos # (Auto) Baso # (Auto) Abs Immat Gran (auto) Absolute Neuts (auto) Absolute Nucleated RBC Nucleated RBC % Sodium Potassium Chloride Carbon Dioxide Anion Gap BUN Creatinine Estim Creat Clear Calc Estimated GFR Glucose POC Capillary Glucose 101 146 H Calcium Magnesium TSH (Reflex) 3.160 04/04/24 04/04/24 04/04/24 21:36 23:10 23:39 WBC RBC Hgb 8.7 L Hct 26.4 L MCV MCH MCHC RDW Plt Count MPV Immature Gran % (Auto) Neut % (Auto) Lymph % (Auto) [place] % (Auto) Eos % (Auto) Baso % (Auto) Lymph # (Auto) [place] # (Auto) Eos # (Auto) Baso # (Auto) Abs Immat Gran (auto) Absolute Neuts (auto) Absolute Nucleated RBC Nucleated RBC % Sodium Potassium Chloride Carbon Dioxide Anion Gap BUN Creatinine Estim Creat Clear Calc Estimated GFR Glucose POC Capillary Glucose 65 163 H Calcium Magnesium TSH (Reflex) 04/05/24 04/05/24 04/05/24 04:33 05:49 09:24 WBC 12.9 H RBC 2.56 L Hgb 7.9 L 8.1 L Hct 26.7 L 25.6 L MCV 104.3 H D MCH 30.9 MCHC 29.6 L RDW 14.6 H Plt Count 168 MPV 10.6 H Immature Gran % (Auto) 0.4 Neut % (Auto) 79.0 H Lymph % (Auto) 9.9 L [place] % (Auto) 7.9 Eos % (Auto) 2.5 Baso % (Auto) 0.3 Lymph # (Auto) 1.27 [place] # (Auto) 1.0 H Eos # (Auto) 0.3 Baso # (Auto) 0.0 Abs Immat Gran (auto) 0.05 H Absolute Neuts (auto) 10.2 H Absolute Nucleated RBC 0.000 Nucleated RBC % 0.0 Sodium 128 L Potassium 5.1 H Chloride 109 H Carbon Dioxide 16 L Anion Gap 3 L BUN 46 H Creatinine 3.00 H Estim Creat Clear Calc Not Reportable Estimated GFR 15 L Glucose 108 POC Capillary Glucose 122 H Calcium 8.3 L Magnesium 1.1 L TSH (Reflex)
[2024-04-05] MEDS: DEXTROSE 5%/0.9% SOD CHL 1,000 ML 75 ML IV CONT (15:25)
[2024-04-05 18:53] LABS: Hematocrit 28.6 % (37.0-47.0); Hemoglobin 8.6 g/dL (12.0-15.0)
[2024-04-05 19:16] LABS: Glucose Point of Care 144 mg/dl (65-105)
[2024-04-05] MEDS: QUEtiapine FUMARATE 100 MG TABLET PO (20:43)
[2024-04-05 23:58] LABS: Glucose Point of Care 148 mg/dl (65-105)
[2024-04-06] VITALS (8 sets, daily range): BP systolic 117; BP diastolic 57; PULSE 63–84; RESP 16; TEMP 36.3–36.4; O2SAT 95–100
[2024-04-06] MEDS: metroNIDAZOLE 500 MG/ISO 100ML 500 MG/100 ML BAG 100 MG IVPB (05:10)
[2024-04-06] MEDS: GABAPENTIN 300 MG CAPSULE PO ×3 (05:11→20:16)
[2024-04-06 06:05] LABS: Hematocrit 26.1 % (37.0-47.0); Hemoglobin 8.2 g/dL (12.0-15.0); Mean Corpuscular HGB Conc 31.4 g/dl (32-36); Mean Corpuscular Hemoglobin 31.7 pg (26-34); Mean Corpuscular Volume 100.8 fl (80-100); Platelet Count Result 173 k/mm3 (150-375); Red Blood Count 2.59 M/mm3 (4.2-5.4); Red Cell Distribution Width 14.6 % (11.5-14.5); White Blood Count 11.7 K/mm3 (4.5-10.0)
[2024-04-06 06:18] LABS: Alanine Aminotransferase 7 U/L (6-35); Albumin Level 2.9 g/dL (3.5-5.1); Alkaline Phosphatase 50 U/L (38-126); Anion Gap 7 mmol/L (4-12); Aspartate Amino Transferase 16 U/L (14-36); Bilirubin,Total 0.4 mg/dL (0.2-1.3); Blood Urea Nitrogen 47 mg/dL (7-17); Calcium 8.1 mg/dL (8.4-10.2); Carbon Dioxide 15 mmol/L (22-30); Chloride 105 mmol/L (98-107); Estimated Glomerular Filt Rate 10; Glucose 129 mg/dL (65-110); Magnesium 2.8 mg/dL (1.6-2.3); Sodium 127 mmol/L (137-145)
[2024-04-06 07:11] LABS: Glucose Point of Care 133 mg/dl (65-105)
--- NOTE | 2024-04-06 08:45 | P.PNIM_ITS ---
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 This type of lesion can erode and cause rectal bleeding. * GI consulted * GI recommended ciprofloxacin and Flagyl * will need follow-up colonoscopy in 6-8 weeks after infectious process resulting unless her hemoglobin continues to trend down * PPI BID * clear liquid diet * WBC 12.2 today * Stool studies pending * bright red blood in stool reported * monitoring HGB 04/06/2024 * patient advanced to low-fiber diet but had N/V change back to clear liquid * F/U ct ABD * Hgb stable (3) Chronic kidney disease, stage IV (severe): Code(s): N18.4 - Chronic kidney disease, stage 4 (severe) Status: Acute Assessment and Plan: * Gentle IV hydration. * Baseline around 2.00 currently 3.00 04/05/24 * Avoid nephrotoxic drugs. * Monitor antihypertensive drug therapy. * Avoid NSAIDs. * Routine CMP monitoring GFR. * Monitor electrolytes especially potassium. * Antibiotic doses depending on creatinine clearance. * Pharmacy does medications. * Routine follow-up with Nephrology as an outpatient. 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 Status: Acute Assessment and Plan: * HX of and currently seen on EGD * PPI * Clear liquids * serial H&H (6) Hypertension: Code(s): I10 - Essential (primary) hypertension Status: Acute Assessment and Plan: * soft BP * holding Lisinopril * BP per unit protocol (7) Hypomagnesemia: Code(s): E83.42 - Hypomagnesemia Status: Acute Assessment and Plan: * Mag 1.1 * replenished with 4g * trend and replenish as needed (8) Hyponatremia: Code(s): E87.1 - Hypo-osmolality and hyponatremia Status: Acute Assessment and Plan: * chronically low * resume sodium tablets 1000 * monitor neurological status Plan Code status: Full code per patient DVT prophylaxis: SCD Stress ulcer prophylaxis: Protonix 40 BID PT/OT notes: NA Disposition: Patient continues admission for possible GI bleeding and anemia underwent EGD that showed Ferrell's esophagus will need to continue with PPI b.i.d. and serial H&Hs transfuse as needed also being treated for colitis continue worsening renal function will have nephrology consulted for further evaluation and recommendation. Plan will be to discharge back to home when medically stable. Time Spent With Patient Time with patient: 15 - 25 minutes Subjective Date/time seen: 04/06/24 08:45 Interval history: patient is a 74-year-old female who was admitted for further evaluation and treatment of possible GI bleed plan for EGD and serial H&H. 04/06/2023: Patient reports feeling dry but has had D/5 going transitioned to NS, attempted to advance diet but had episode of N/V and reports no BM or passing gas. renal function worsened But likely secondary to anesthesia nephrology consulted and will need to monitor closely. Patient denied CP or SOB Review of Systems Review of Systems: 12 systems were reviewed and are negativ e except for as per HPI. All systems reviewed & are unremarkable except as noted in HPI and below Exam Narrative: * GENERAL: Alert and oriented x 3 chronically ill looking pleasant female. No acute distress. * EYES: PERRLA. * HEENT: Moist mucous membranes. * LUNGS: Clear to auscultation bilaterally. No accessory muscle use. * CARDIOVASCULAR: Regular rate and rhythm. No murmur. No JVD. S1-S2 * ABDOMEN: Soft, moderate tenderness and non-distended. hypoactive bowel sounds * EXTREMITIES: No edema. Non-tender * SKIN: No rashes or lesions. Skin warm, dry. * NEUROLOGIC: No focal neurological deficits. * PSYCHIATRIC: Appropriate mood and affect. Objective Data Vital Signs Vital Signs: Vital Signs - 24 hr 04/05/24 12:00 04/05/24 16:00 04/05/24 16:00 Temperature Pulse Rate 72 72 Respiratory Rate Blood Pressure 90/50 L Pulse Oximetry Oxygen Delivery 04/05/24 16:24 04/05/24 16:24 04/05/24 16:25 Temperature 97.0 F L Pulse Rate 56 L Respiratory Rate 16 Blood Pressure 90/48 L 87/56 L 90/50 L Pulse Oximetry 98 Oxygen Delivery 04/05/24 17:50 04/05/24 20:00 04/05/24 20:00 Temperature Pulse Rate Respiratory Rate Blood Pressure 94/42 L 98/50 L Pulse Oximetry Oxygen Delivery Room Air 04/05/24 20:00 04/05/24 20:43 04/05/24 20:56 Temperature Pulse Rate 63 66 Respiratory Rate Blood Pressure 98/50 L Pulse Oximetry Oxygen Delivery 04/05/24 20:56 04/05/24 22:20 04/06/24 00:00 Temperature 97.0 F L Pulse Rate 69 71 Respiratory Rate 18 Blood Pressure 100/50 L 98/50 L Pulse Oximetry 100 Oxygen Delivery 04/06/24 04:00 04/06/24 06:05 Temperature 97.3 F L Pulse Rate 63 72 Respiratory Rate 16 Blood Pressure Pulse Oximetry 95 Oxygen Delivery Intake/Output Intake/Output: Intake & Output 04/03/24 04/04/24 04/05/24 04/06/24 23:59 23:59 23:59 23:59 Intake Total 1875.0 2690 Balance 1875.0 2690 Meds/Results Medications: Active Medications Generic Name Dose Route Start Last Admin Trade Name Freq PRN Reason Stop Dose Admin Acetaminophen 650 mg 04/04/24 12:10 Acetaminophen 325 Mg Tablet PO Q4H PRN Mild Pain (1-3) or Fever Artificial Tears 1 drop 04/04/24 20:15 Artificial Tears Ophth Soln 15 Ml Bottle EACH EYE Q4H PRN Dry Eye(S) Bupropion HCl 100 mg 04/05/24 09:00 04/05/24 16:11 Bupropion Hcl 100 Mg Tablet PO 100 mg BID JUAN PABLO Administration Calcitriol 0.25 mcg 04/06/24 09:00 Calcitriol 0.25 Mcg Capsule BY MOUTH [email or web address] JUAN PABLO Carvedilol 12.5 mg 04/04/24 21:00 04/05/24 20:43 Carvedilol 12.5 Mg Tablet PO Not Given Q12HR JUAN PABLO Dextrose 12.5 gm 04/04/24 21:51 Dextrose 50% 25 Gm/50 Ml Syringe IV PUSH PRN PRN Hypoglycemia Protocol Escitalopram Oxalate 20 mg 04/05/24 09:00 04/05/24 09:04 Escitalopram Oxalate 10 Mg Tablet PO 20 mg DAILY JUAN PABLO Administration Famotidine 20 mg 04/04/24 21:00 04/05/24 20:43 Famotidine 20 Mg Tablet PO 20 mg Q12HR JUAN PABLO Administration Gabapentin 300 mg 04/05/24 06:00 04/06/24 05:11 Gabapentin 300 Mg Capsule PO 300 mg Q8HR JUAN PABLO Administration Glucagon 1 mg 04/04/24 21:51 Glucagon For Inj 1 Mg Vial IM PRN PRN Hypoglycemia Protocol Glucose 15 gm 04/04/24 21:51 Glucose Oral Gel 15 Gm Of Glucse In 37.5 Gm Tube PO PRN PRN Hypoglycemia Protocol Hydromorphone HCl 0.5 mg 04/04/24 12:10 Hydromorphone Hcl Inj (*Crx) 1 Mg/Ml Syr IV PUSH Q4H PRN Pain Rated 7-10 Metronidazole 500 mg in 100 mls @ 100 mls/hr 04/04/24 22:00 04/06/24 05:10 Flagyl 500 Mg/Iso Soln 100 Ml IVPB 100 mls/hr Q8H JUAN PABLO Administration Dextrose 1,000 mls @ 100 mls/hr 04/04/24 21:51 Dextrose 5% 1,000 Ml IVPB PRN PRN Hypoglycemia Protocol Dextrose/Sodium Chloride 1,000 mls @ 75 mls/hr 04/04/24 21:55 04/05/24 15:25 Dextrose 5% Sodium Chloride 0.9% IV CONT 75 mls/hr .[id number] JUAN PABLO Administration Ciprofloxacin/Dextrose 200 mls @ 200 mls/hr 04/05/24 09:00 04/05/24 10:38 Cipro 400 Mg/D5w 200 Ml IVPB Infused Q24H JUAN PABLO Infusion Sodium Chloride 1,000 mls @ 75 mls/hr 04/06/24 08:45 Normal Saline Iv IV CONT .[id number] JUAN PABLO Latanoprost 1 drop 04/05/24 09:00 04/05/24 09:05 Latanoprost 0.005% Op Soln 2.5 Ml Btl EACH EYE 1 drop DAILY JUAN PABLO Administration Loratadine 10 mg 04/04/24 20:25 Loratadine 10 Mg Tablet PO QAM PRN allergy symptoms Ondansetron HCl 4 mg 04/04/24 12:10 Ondansetron Inj 4 Mg/2 Ml Vial IV PUSH Q4H PRN Nausea Pantoprazole Sodium 40 mg 04/04/24 21:00 04/05/24 20:43 Pantoprazole Sodium Iv 40 Mg Vial IV PUSH 40 mg Q12HR JUAN PABLO Administration Pravastatin Sodium 40 mg 04/05/24 09:00 04/05/24 09:03 Pravastatin Sodium 20 Mg Tablet PO 40 mg DAILY JUAN PABLO Administration Quetiapine Fumarate 100 mg 04/04/24 21:00 04/05/24 20:43 Quetiapine Fumarate 100 Mg Tablet PO 100 mg HS JUAN PABLO Administration Sodium Chloride 1 gm 04/05/24 09:00 04/05/24 09:03 Sodium Chloride 1 Gm Tablet PO 1 gm QAM JUAN PABLO Administration Vitamin D 2,000 units 04/05/24 09:00 04/05/24 16:11 Cholecalciferol 1,000 Units Tablet PO 2,000 units BID JUAN PABLO Administration Radiology Results: ITS Impressions Abdomen/Pelvis CT 04/04/24 11:24 IMPRESSION: Approximately 11.4 x 24 mm hepatic flexure colonic lipoma Nonspecific thickening of the wall of the sigmoid and descending colon which may be due to nonspecific colitis Mild sigmoid colon diverticulosis; no evidence of diverticulitis Status post hysterectomy Chest X-Ray 04/04/24 11:31 IMPRESSION: No active cardiopulmonary disease No intraperitoneal free air is detected Labs Labs: Laboratory Results - last 24 hr 04/05/24 04/05/24 04/05/24 09:24 14:43 18:08 WBC RBC Hgb 8.1 L 8.6 L Hct 25.6 L 28.6 L MCV MCH MCHC RDW Plt Count MPV Sodium Potassium Chloride Carbon Dioxide Anion Gap BUN Creatinine Estim Creat Clear Calc Estimated GFR Glucose POC Capillary Glucose 238 H Calcium Magnesium Total Bilirubin AST ALT Alkaline Phosphatase Total Protein Albumin 04/05/24 04/05/24 04/06/24 19:05 23:55 05:35 WBC 11.7 H RBC 2.59 L Hgb 8.2 L Hct 26.1 L MCV 100.8 H MCH 31.7 MCHC 31.4 L RDW 14.6 H Plt Count 173 MPV 11.0 H Sodium 127 L Potassium 5.0 Chloride 105 Carbon Dioxide 15 L Anion Gap 7 BUN 47 H Creatinine 4.40 H Estim Creat Clear Calc Not Reportable Estimated GFR 10 L Glucose 129 H POC Capillary Glucose 144 H 148 H Calcium 8.1 L Magnesium 2.8 H Total Bilirubin 0.4 AST 16 ALT 7 Alkaline Phosphatase 50 Total Protein 6.0 L Albumin 2.9 L 04/06/24 07:09 WBC RBC Hgb Hct MCV MCH MCHC RDW Plt Count MPV Sodium Potassium Chloride Carbon Dioxide Anion Gap BUN Creatinine Estim Creat Clear Calc Estimated GFR Glucose POC Capillary Glucose 133 H Calcium Magnesium Total Bilirubin AST ALT Alkaline Phosphatase Total Protein Albumin Quality VTE Prophylaxis VTE prophylaxis: mechanical ordered -Patient's previous records reviewed on admission -ER notes reviewed in detail on admission -discussed all findings and current treatment plan with patient/Family/POA -Consultations reviewed for recommendations -Patient's disposition for safe discharge discussed with catalytic case operator Dictation performed by [employer] direct speech recognition software, therefore therapeutic mentor variants and typographical errors may occur. Hospitalist MIPS Advance Care Plan I have confirmed that the patient's Advanced Care Plan is present, code status is documented, or surrogate decision maker is listed in patient medical record.: Yes Medication Reconciliation I have utilized all available resources to obtain, update and review the patients current medications (includes all prescriptions, OTC, herbals, cannabis, and nutritional supplements).: Yes The patient is not eligible for med reconciliation; the patient is in a emergent medical situation where delaying treatment would jeopardize the patients health.: No
[2024-04-06] MEDS: CHOLECALCIFEROL 1,000 UNITS TABLET 2000 UNITS PO ×2 (10:01→17:01)
[2024-04-06] MEDS: buPROPion HCL 100 MG TABLET PO ×2 (10:02→17:01)
[2024-04-06] MEDS: FAMOTIDINE 20 MG TABLET PO ×2 (10:02→20:15)
[2024-04-06] MEDS: PRAVASTATIN SODIUM 20 MG TABLET 40 MG PO (10:02)
[2024-04-06] MEDS: SODIUM CHLORIDE 1 GM TABLET PO (10:02)
[2024-04-06] MEDS: ESCITALOPRAM OXALATE 10 MG TABLET 20 MG PO (10:02)
[2024-04-06] MEDS: LATANOPROST 0.005% OP SOLN 2.5 ML BTL 1 DROP EACH EYE (10:03)
[2024-04-06] MEDS: PANTOPRAZOLE SODIUM IV 40 MG VIAL IV PUSH ×2 (10:03→20:16)
[2024-04-06] MEDS: DEXTROSE 5%/0.9% SOD CHL 1,000 ML 75 ML IV CONT (10:04)
[2024-04-06] MEDS: calcitrioL 0.25 MCG CAPSULE BY MOUTH (10:09)
[2024-04-06] MEDS: SODIUM CHLORIDE 0.9% IV 1,000 ML 75 ML IV CONT (10:11)
[2024-04-06 12:22] LABS: Glucose Point of Care 176 mg/dl (65-105)
--- NOTE | 2024-04-06 13:53 | P.CONNP_ITS ---
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/dialysis * follow trend of repeat labs and UOP (2) Chronic kidney disease, stage IV (severe): Code(s): N18.4 - Chronic kidney disease, stage 4 (severe) Status: Acute Assessment and Plan: * baseline creatinine runs ~ 1.8 - 2.3mg/dl * due hypertension, diabetes, and age-related change with contributions with previous use of NSAIDs (3) Metabolic acidosis: Code(s): E87.20 - Acidosis, unspecified Status: Acute Assessment and Plan: * due to worsening JAE/ARF * attempting to compensate with sodium bicarb (oral and IV) * follow trend (4) Hyponatremia: Code(s): E87.1 - Hypo-osmolality and hyponatremia Status: Acute Assessment and Plan: * chronic issues at baseline * likely worsened by JAE/ARF * given JAE, sodium tabs on hold * follow trend of sodum level (5) GI bleed: Code(s): K92.2 - Gastrointestinal hemorrhage, unspecified Status: Acute Assessment and Plan: * 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 * known history of Barrettt's esophagus * Hgb dropped since admission * GI following: * s/p EGD - no active bleeding with known findings of Ferrell's esophagus * on PPI * follow trend of H/H * PRBC transfusion per protocol (6) Colitis: Code(s): K52.9 - Noninfective gastroenteritis and colitis, unspecified Status: Acute Assessment and Plan: * as noted by admission CT of A/P * GI recommendations noted * on antibiotics * advance diet as tolerated (7) Chronic anemia: Code(s): D64.9 - Anemia, unspecified Status: Chronic Assessment and Plan: * probably related to CKD * acute worsening noted since admission * possibly complicated by #5 * consider SANDRA * follow H/H (8) Hypertension: Code(s): I10 - Essential (primary) hypertension Status: Acute Assessment and Plan: * BP on the soft side since admission * lisinopril on hold due to #1 * follow trend of hemodynamics I will continue to follow the patient with you while she remains hospitalized and make further recommendations as deemed necessary. Thank you for allowing me to participate in the care of this patient. History of Present Illness Reason for Consult Consult date: 04/06/24 Reason for consult: acute renal failure (on chronic kidney disease) Chief Complaint Chief complaint: GI bleed, gastroenteritis History of Present Illness Narrative: The patient is a 74-year-old female with a past medical history as outlined below who presented to [facility] Emergency Room for further evaluation of vomiting blood and bloody diarrhea. Apparently, for the past 24 hours prior to her presentation to the emergency room, she has been experiencing worsening acid reflux symptoms. On the morning of admission, around 3:00 a.m., she had a significant burning sensation in her upper abdomen and approximately 15 minutes later, she vomited what appeared to be coffee-ground emesis. Around that same time, she noted bloody stools as well when she had a bowel movement. She states that she thinks she may have had up to 10 episodes of hematemesis and hematochezia but she is not completely sure. Following these issues, she started feeling weak and dizzy with worsening abdominal discomfort. She gave no history of chest pain, shortness of breath, palpitations, syncope, or dysuria. Given these constellation of symptoms, she presented to the emergency room for further assessment Workup and evaluation emergency room demonstrated the patient be hemodynamically stable and afebrile but she was tachycardic in the 130s range. Routine blood tests were significant for white blood cell count 11.7, hemoglobin 10.9, normal platelet count, relative hyponatremia with a sodium 134, and a BUN and creatinine slightly above her baseline in association with a mild metabolic acidosis. Given her complaints of abdominal pain and symptoms of a mat emesis and hematochezia, a CT scan of the abdomen pelvis was done which demonstrated nonspecific thickening of the wall of the sigmoid descending colon which may be due to nonspecific colitis. Given the concerns for a possible GI bleed particularly given her known history of Ferrell's esophagus, she was started on IV Protonix as well as IV antibiotics for her presumed colitis after appropriate cultures were obtained. GI was consulted as well and she was subsequently admitted to the hospital for further evaluation and therapy. Since her admission, she has been seen by GI and given her history as noted on presentation in conjunction with her known history of Ferrell's esophagus, she want a rent a EGD which demonstrated findings consistent with Ferrell's esophagus but no evidence of any lesions or pathology that were bleeding. Her IV Protonix was transition to oral Protonix and closer monitoring of her hemoglobin hematocrit has been done given her fluctuations since her admission to the hospital. Renal consultation was requested due to her acute kidney injury/acute renal failure on top of her baseline chronic kidney disease. The patient is well known to me as I follow her in the office for management of her chronic kidney disease. Her baseline creatinine has been running around 1.8-2.3 mg/dL and is thought to be secondary to hypertension, diabetes, vascular disease, as well as age-related change in conjunction with her distant history of chronic NSAID use. When I last saw her in the office, her renal function was at baseline and as noted above, on admission to the hospital her creatinine was around 2.6 mg/dL. Unfortunately, since her admission, her creatinine has deteriorated/worsened with a creatinine up to 3.0 mg/dL yesterday and with repeat labs this morning showed a creatinine of 4.4 mg/dL. In spite of this significant change in her renal function, the patient does not appear to be in any acute distress although she just feels not well but is unable to further elaborate on this complaint. Currently, at the time my evaluation, she has been given a trial of IV fluids in the hopes that this will improve her renal function and she does not appear to be in any acute distress. Review of Systems 2 Review of Systems: As per HPI. [facility] Past Medical History Medical History Diabetes type 2, controlled Restless leg syndrome Chronic kidney disease, stage IV (severe) Hyperlipidemia Vitamin D deficiency Raynaud's disease Anemia Depression Degenerative disc disease Cervical neck fusion in 2006 Arthritis Musculoskeletal disorder Bilateral rotator cuff surgery, bilateral carpal tunnel, arthritis, left thumb subluxed Ferrell's esophagus Pneumonia Hypertension Heart murmur Migraines Last migraine 2006 Glaucoma Cataracts, bilateral Surgical History Surgical History History of cervical spinal surgery History of orthopedic surgery Lower back disc removal 1986, repair of spinal leak 1987 History of appendectomy History of tonsillectomy Family History Family History Sibling Family history of thyroid disease Family history of obesity Family history of osteoporosis Family history of migraine headaches Hypertension Family history of elevated blood lipids Family history of alcoholism Family history of diabetes mellitus in first degree relative Family history of coronary artery disease Father Family history of osteoporosis Family history of lung cancer Mother Family history of osteoarthritis Family history of malignant melanoma Family history of atrial fibrillation Social History Social History Social History: Surrogate medical decision maker: Code status: Full code. Smoking status: Never smoker Second hand tobacco smoke exposure: Yes (father and ) Alcohol intake: never Substance use: never Substance use type: other Other substance usage details: cbd gummies without thc Do You Feel Safe in your Home?: Yes Lack of Transportation: No Lack of Food: Never True Current Housing: I Have Housing Concerned About Future Housing: No Difficulty Paying Gas/Electric Bills: No Difficulty Paying for Meds: No Currently Unemployed: No Education: Associate Degree Difficulty w/ Childcare or Family Care: No Living arrangements: with family Spiritual care concerns: Yes (gnosticist) Meds Home Medications and Allergies Home Medications ?Medication ?Instructions ?Recorded ?Confirmed ?Type bupropion HCl 100 mg tablet 100 mg PO BID 12/24/20 04/04/24 History cholecalciferol (vitamin D3) 50 50 mcg PO BID 12/24/20 04/04/24 History mcg (2,000 unit) tablet (Vitamin D3) latanoprost 0.005 % eye drops 1 drp EACH EYE DAILY 12/24/20 04/04/24 History (Xalatan) lisinopril 20 mg tablet (Zestril) 20 mg PO DAILY 12/24/20 04/04/24 History meclizine 25 mg tablet 25 mg PO TID PRN dizziness #14 tabs 12/24/20 04/04/24 Rx pantoprazole 40 mg tablet,delayed 40 mg PO QAM 12/24/20 04/04/24 History release (Protonix) pravastatin 40 mg tablet 40 mg PO DAILY 12/24/20 04/04/24 History acetaminophen 325 mg tablet (Mapap 650 mg (2 x 325 mg) PO Q6H PRN 06/15/22 04/04/24 Rx (acetaminophen)) Mild Pain (1-3) Or Fever #30 tabs carvedilol 12.5 mg tablet (Coreg) 12.5 mg PO Q12HR #60 tabs 06/15/22 04/04/24 Rx escitalopram oxalate 10 mg tablet 20 mg (2 x 10 mg) PO DAILY #30 tabs 06/15/22 04/04/24 Rx famotidine 20 mg tablet 20 mg PO Q12HR #30 tabs 06/15/22 04/04/24 Rx gabapentin 300 mg capsule 300 mg PO TID #90 caps 06/15/22 04/04/24 Rx (Neurontin) peg [id number] 1 1 drp EACH EYE Q4H PRN Dry Eye(S) 06/15/22 04/04/24 Rx %-0.2 %-0.2 % eye drops #15 mL (Artificial Tears ([id number])) quetiapine 50 mg tablet 100 mg (2 x 50 mg) PO HS #30 tabs 06/15/22 04/04/24 Rx sodium chloride 1,000 mg soluble 1,000 mg PO QAM #14 tabs 06/15/22 04/04/24 Rx tablet cetirizine 10 mg tablet (Zyrtec) 10 mg PO DAILY PRN allergy symptoms 08/20/23 04/04/24 History calcitriol 0.25 mcg capsule See Rx Instructions .Route 03/30/24 04/04/24 Rx .COMPLEX #38 caps Allergies Allergy/AdvReac Type Severity Reaction Status Date / Time adhesive tape Allergy Mild Unknown Verified 04/06/24 08:47 Influenza Virus Vaccines Allergy Mild Hives Verified 04/06/24 08:47 smallpox vaccine,live Allergy Mild Hives Verified 04/06/24 08:47 Sulfa (Sulfonamide Allergy Mild HIVES Verified 04/04/24 16:23 Antibiotics) sulfamethoxazole Allergy Mild HIVES Verified 04/04/24 16:23 cyclobenzaprine Allergy Unknown Unknown Verified 04/04/24 16:23 fluoxetine Allergy Unknown Unknown Verified 04/04/24 16:23 latex Allergy Unknown Unknown Verified 04/04/24 16:23 meperidine Allergy Unknown Unknown Verified 04/04/24 16:23 naproxen Allergy Unknown Unknown Verified 04/04/24 16:23 trimethoprim Allergy Unknown Unknown Verified 04/04/24 16:23 bethanechol AdvReac Mild INTESTINAL Verified 04/06/24 09:03 PROBLEMS EGGS Allergy Unknown Unknown Uncoded 04/04/24 16:23 SEE NSG NOTES Allergy Unknown Unknown Uncoded 04/04/24 16:23 Vital Signs Vital Signs Temp Pulse Resp BP Pulse Ox O2 Del Method 04/06/24 12:00 84 04/06/24 10:00 Room Air 04/06/24 08:00 70 04/06/24 06:05 97.3 F L 72 16 95 04/06/24 04:00 63 04/06/24 00:00 71 04/05/24 22:20 97.0 F L 69 18 98/50 L 100 04/05/24 20:56 100/50 L 04/05/24 20:56 98/50 L 04/05/24 20:43 66 04/05/24 20:00 63 04/05/24 20:00 98/50 L 04/05/24 20:00 Room Air Exam 2 Narrative: GENERAL APPEARANCE: elderly and slightly ill-appearing female in no acute distress HEENT: normocephalic, atraumatic, normal conjunctiva and sclera, nares patient NECK: no lymphadenopathy, thyromegaly, or JVD MOUTH: normal lips, teeth, and gums CARDIOVASCULAR: RRR, normal S1 and S2, no rub RESPIRATORY: clear to auscultation bilaterally ABDOMEN: soft, mild TTP in periumbilical region, nondistended, positive bowel sounds present EXTREMITIES: no evidence of cyanosis, clubbing, or edema NEUROLOGICAL: alert and oriented x 3; CN II - XII intact bilaterally; no focal deficits noted Results Lab Results 04/10/24 06:55 04/10/24 04:47 Lab results: Most recent lab results Calcium 8.1 mg/dL (8.4-10.2) L 04/06/24 05:35 Magnesium 2.8 mg/dL (1.6-2.3) H 04/06/24 05:35
[2024-04-06] MEDS: metroNIDAZOLE 500 MG TABLET PO ×2 (14:50→20:16)
[2024-04-06 18:01] LABS: Glucose Point of Care 166 mg/dl (65-105)
[2024-04-06] MEDS: QUEtiapine FUMARATE 100 MG TABLET PO (20:16)
[2024-04-06 21:16] LABS: Creatinine Urine 129.2 mg/dL; Creatinine Urine 129.7 mg/dL; Total Protein Urine Random 15 mg/dL; Ur Ttl Prot Creatinine Ratio 0.12 mg/mg (0-0.20); Urea Random Urine 176 MG/DL
[2024-04-06 21:17] LABS: Sodium Urine Random 17 meq/L
[2024-04-06 21:47] LABS: Add Urine Microscopic? YES; Appearance Urine Cloudy (Clear); Bacteria Urine None Seen /hpf; Bilirubin Urine Negative (Negative); Blood Urine Negative (Negative); Color Urine Dark Yellow (Yellow); Glucose Urine UA Negative (Negative); Ketones Urine Trace mg/dL (Negative); Leukocyte Esterase Ur Trace LEU/UL (Negative); Mucus Urine Present /lpf; Need Manual Microscopic Reviewed; Nitrate Urine Negative (Negative); Non Pathogenic Casts >20; Protein Urine Trace mg/dL (Negative); Specific Grav Ur 1.041 (1.001-1.035); Squamous Epithelial Cell Urine Few /hpf (Few); Urobilinogen Urine 0.2 mg/dL (<2.0); WBC Urine 0-5 /hpf (0-3)
[2024-04-06 22:03] LABS: Eosinophil Urine None Seen % (None Seen); Urine Eos QC 2nd Tech Confirmed
[2024-04-06 23:12] LABS: Glucose Point of Care 151 mg/dl (65-105)
[2024-04-07] VITALS (9 sets, daily range): BP systolic 108–140; BP diastolic 48–58; PULSE 72–92; RESP 14–16; TEMP 35.8–36.5; O2SAT 95–97
[2024-04-07] MEDS: GABAPENTIN 300 MG CAPSULE PO ×3 (05:28→21:06)
[2024-04-07] MEDS: metroNIDAZOLE 500 MG TABLET PO ×3 (05:28→21:06)
[2024-04-07 05:58] LABS: Hematocrit 26.4 % (37.0-47.0); Hemoglobin 8.1 g/dL (12.0-15.0); Mean Corpuscular HGB Conc 30.7 g/dl (32-36); Mean Corpuscular Hemoglobin 30.9 pg (26-34); Mean Corpuscular Volume 100.8 fl (80-100); Mean Platelet Volume 11.2 fl (7.4-10.4); Platelet Count Result 178 k/mm3 (150-375); Red Blood Count 2.62 M/mm3 (4.2-5.4); Red Cell Distribution Width 14.3 % (11.5-14.5); White Blood Count 8.5 K/mm3 (4.5-10.0)
[2024-04-07 06:17] LABS: Alanine Aminotransferase 7 U/L (6-35); Albumin Level 2.8 g/dL (3.5-5.1); Alkaline Phosphatase 109 U/L (38-126); Anion Gap 11 mmol/L (4-12); Aspartate Amino Transferase 12 U/L (14-36); Bilirubin,Total 0.3 mg/dL (0.2-1.3); Blood Urea Nitrogen 45 mg/dL (7-17); Carbon Dioxide 14 mmol/L (22-30); Chloride 104 mmol/L (98-107); Creatine Kinase 56 U/L (30-135); Estimated Glomerular Filt Rate 8; Glucose 118 mg/dL (65-110); Magnesium 2.4 mg/dL (1.6-2.3); Potassium 5.2 mmol/L (3.4-5.0); Sodium 129 mmol/L (137-145)
[2024-04-07] MEDS: PRAVASTATIN SODIUM 20 MG TABLET 40 MG PO (08:44)
[2024-04-07] MEDS: FAMOTIDINE 20 MG TABLET PO ×2 (08:44→21:06)
[2024-04-07] MEDS: CHOLECALCIFEROL 1,000 UNITS TABLET 2000 UNITS PO ×2 (08:44→16:36)
[2024-04-07] MEDS: ESCITALOPRAM OXALATE 10 MG TABLET 20 MG PO (08:44)
[2024-04-07] MEDS: PANTOPRAZOLE SODIUM IV 40 MG VIAL IV PUSH (08:44)
[2024-04-07] MEDS: LATANOPROST 0.005% OP SOLN 2.5 ML BTL 1 DROP EACH EYE (08:44)
[2024-04-07] MEDS: buPROPion HCL 100 MG TABLET PO ×2 (08:44→16:36)
[2024-04-07] MEDS: SODIUM CHLORIDE 1 GM TABLET PO (08:44)
--- NOTE | 2024-04-07 08:53 | P.PNIM_ITS ---
Progress Note: A&P Assessment and Plan (1) Acute kidney injury (JAE) with acute tubular necrosis (ATN): Code(s): N17.0 - Acute kidney failure with tubular necrosis Status: Acute Assessment and Plan: Patient received IV contrast on 04/04/24 with already underlying CKD now with worsening renal failure * Baseline around 2.00 currently 3.00 04/05/24 * Avoid nephrotoxic drugs. * Avoid NSAIDs. * Routine CMP monitoring GFR. * Monitor electrolytes especially potassium. 04/06/2024 * Worsening Cr 4.40 today could be secondary Anesthesia from EGD * NS 75 D/C D/5 * nephrology consulted for further recommendations and evaluation * bilateral renal ultrasound * Cipro D/c switched to Rocephin 04/07/2024: * Worsening Cr 5.16 * CT showing contrast in Kidneys from 3 days prior and anasarca in the stomach * failed fluid challenge will D/C * no urinary output Pedro placed with only 50 mL * Plan for renal function in the AM if no improvement hoping for renal recovery but may need temporary dialysis with consult to surgery for dialysis access. 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 This type of lesion can erode and cause rectal bleeding. * GI consulted * GI recommended ciprofloxacin and Flagyl * will need follow-up colonoscopy in 6-8 weeks after infectious process resulting unless her hemoglobin continues to trend down * PPI BID * clear liquid diet * WBC 12.2 today * Stool studies pending * bright red blood in stool reported * monitoring HGB 04/06/2024 * patient advanced to low-fiber diet but had N/V change back to clear liquid * F/U ct ABD * Hgb stable (4) Chronic kidney disease, stage IV (severe): Code(s): N18.4 - Chronic kidney disease, stage 4 (severe) Status: Acute Assessment and Plan: * Gentle IV hydration. * Baseline around 2.00 currently 3.00 04/05/24 * Avoid nephrotoxic drugs. * Monitor antihypertensive drug therapy. * Avoid NSAIDs. * Routine CMP monitoring GFR. * Monitor electrolytes especially potassium. * Antibiotic doses depending on creatinine clearance. * Pharmacy does medications. * Routine follow-up with Nephrology as an outpatient. 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 Status: Acute Assessment and Plan: * HX of and currently seen on EGD * PPI * Clear liquids * serial H&H (7) Hypertension: Code(s): I10 - Essential (primary) hypertension Status: Acute Assessment and Plan: * soft BP * holding Lisinopril * BP per unit protocol (8) Hypomagnesemia: Code(s): E83.42 - Hypomagnesemia Status: Acute Assessment and Plan: * Mag 1.1 * replenished with 4g * trend and replenish as needed RESOLVED (9) Hyponatremia: Code(s): E87.1 - Hypo-osmolality and hyponatremia Status: Acute Assessment and Plan: * chronically low * resume sodium tablets 1000 * monitor neurological status Improving Plan Code status: Full code per patient DVT prophylaxis: SCD Stress ulcer prophylaxis: Protonix 40 BID PT/OT notes: NA Disposition: Patient continues admission for possible GI bleeding and anemia underwent EGD that showed Ferrell's esophagus will need to continue with PPI b.i.d. and serial H&Hs transfuse as needed also being treated for colitis continue however now patient has likely IV contrast induced ATN JAE renal function continues to worsen if no renal recovery she will need temporary dialysis. Time Spent With Patient Time with patient: 15 - 25 minutes Subjective Date/time seen: 04/07/24 08:53 Interval history: patient is a 74-year-old female who was admitted for further evaluation and treatment of possible GI bleed plan for EGD and serial H&H. 04/06/2023: Patient with worsening renal function, CT ABD showing IV contrast till present from 3 days ago and poor urinary output and failed fluid challenge likely ATN secondary to contrast neuropathy spoke with Dr Reyna regarding need for temporary dialysis, will do follow-up renal function tomorrow and if no improvement will likely need dialysis. Patient reports ABD fullness and overall feeling weak. Review of Systems Review of Systems: 12 systems were reviewed and are negativ e except for as per HPI. All systems reviewed & are unremarkable except as noted in HPI and below Exam Narrative: * GENERAL: Alert and oriented x 3 chronically ill looking pleasant female. No acute distress. * EYES: PERRLA. * HEENT: Moist mucous membranes. * LUNGS: Clear to auscultation bilaterally. No accessory muscle use. * CARDIOVASCULAR: Regular rate and rhythm. No murmur. No JVD. S1-S2 * ABDOMEN: Soft, moderate tenderness and non-distended. hypoactive bowel sounds * EXTREMITIES: No edema. Non-tender * SKIN: No rashes or lesions. Skin warm, dry. * NEUROLOGIC: No focal neurological deficits. * PSYCHIATRIC: Appropriate mood and affect. Objective Data Vital Signs Vital Signs: Vital Signs - 24 hr 04/06/24 10:00 04/06/24 12:00 04/06/24 16:00 Temperature Pulse Rate 84 79 Respiratory Rate Blood Pressure Pulse Oximetry Oxygen Delivery Room Air 04/06/24 20:00 04/06/24 20:00 04/06/24 21:15 Temperature 97.5 F L Pulse Rate 78 80 Respiratory Rate 16 Blood Pressure 117/57 L Pulse Oximetry 100 Oxygen Delivery Room Air 04/07/24 00:00 04/07/24 04:00 04/07/24 05:53 Temperature 97.5 F L Pulse Rate 72 82 85 Respiratory Rate 16 Blood Pressure 140/48 L Pulse Oximetry 95 Oxygen Delivery Intake/Output Intake/Output: Intake & Output 04/04/24 04/05/24 04/06/24 04/07/24 23:59 23:59 23:59 23:59 Intake Total 1875.0 2690 1788.8 Output Total 50 Balance 1875.0 2690 1788.8 -50 Meds/Results Medications: Active Medications Generic Name Dose Route Start Last Admin Trade Name Freq PRN Reason Stop Dose Admin Acetaminophen 650 mg 04/04/24 12:10 Acetaminophen 325 Mg Tablet PO Q4H PRN Mild Pain (1-3) or Fever Artificial Tears 1 drop 04/04/24 20:15 Artificial Tears Ophth Soln 15 Ml Bottle EACH EYE Q4H PRN Dry Eye(S) Bupropion HCl 100 mg 04/05/24 09:00 04/07/24 08:44 Bupropion Hcl 100 Mg Tablet PO 100 mg BID JUAN PABLO Administration Calcitriol 0.25 mcg 04/06/24 09:00 04/06/24 10:09 Calcitriol 0.25 Mcg Capsule BY MOUTH 0.25 mcg [id number] JUAN PABLO Administration Carvedilol 12.5 mg 04/04/24 21:00 04/05/24 20:43 Carvedilol 12.5 Mg Tablet PO Not Given Q12HR JUAN PABLO Dextrose 12.5 gm 04/04/24 21:51 Dextrose 50% 25 Gm/50 Ml Syringe IV PUSH PRN PRN Hypoglycemia Protocol Escitalopram Oxalate 20 mg 04/05/24 09:00 04/07/24 08:44 Escitalopram Oxalate 10 Mg Tablet PO 20 mg DAILY JUAN PABLO Administration Famotidine 20 mg 04/04/24 21:00 04/07/24 08:44 Famotidine 20 Mg Tablet PO 20 mg Q12HR JUAN PABLO Administration Gabapentin 300 mg 04/05/24 06:00 04/07/24 05:28 Gabapentin 300 Mg Capsule PO 300 mg Q8HR JUAN PABLO Administration Glucagon 1 mg 04/04/24 21:51 Glucagon For Inj 1 Mg Vial IM PRN PRN Hypoglycemia Protocol Glucose 15 gm 04/04/24 21:51 Glucose Oral Gel 15 Gm Of Glucse In 37.5 Gm Tube PO PRN PRN Hypoglycemia Protocol Hydromorphone HCl 0.5 mg 04/04/24 12:10 Hydromorphone Hcl Inj (*Crx) 1 Mg/Ml Syr IV PUSH Q4H PRN Pain Rated 7-10 Dextrose 1,000 mls @ 100 mls/hr 04/04/24 21:51 Dextrose 5% 1,000 Ml IVPB PRN PRN Hypoglycemia Protocol Sodium Chloride 1,000 mls @ 75 mls/hr 04/06/24 08:45 04/06/24 10:11 Normal Saline Iv IV CONT 75 mls/hr .[id number] JUAN PABLO Administration Ceftriaxone Sodium 1 gm in 50 mls @ 100 mls/hr 04/06/24 09:00 04/07/24 08:45 Rocephin 1 Gm/Ns 50 Ml IVPB 100 mls/hr Q24H JUAN PABLO Administration Latanoprost 1 drop 04/05/24 09:00 04/07/24 08:44 Latanoprost 0.005% Op Soln 2.5 Ml Btl EACH EYE 1 drop DAILY JUAN PABLO Administration Loratadine 10 mg 04/04/24 20:25 Loratadine 10 Mg Tablet PO QAM PRN allergy symptoms Metronidazole 500 mg 04/06/24 14:00 04/07/24 05:28 Metronidazole 500 Mg Tablet PO 500 mg Q8HR JUAN PABLO Administration Ondansetron HCl 4 mg 04/04/24 12:10 Ondansetron Inj 4 Mg/2 Ml Vial IV PUSH Q4H PRN Nausea Pantoprazole Sodium 40 mg 04/04/24 21:00 04/07/24 08:44 Pantoprazole Sodium Iv 40 Mg Vial IV PUSH 40 mg Q12HR JUAN PABLO Administration Pravastatin Sodium 40 mg 04/05/24 09:00 04/07/24 08:44 Pravastatin Sodium 20 Mg Tablet PO 40 mg DAILY JUAN PABLO Administration Quetiapine Fumarate 100 mg 04/04/24 21:00 04/06/24 20:16 Quetiapine Fumarate 100 Mg Tablet PO 100 mg HS JUAN PABLO Administration Sodium Chloride 1 gm 04/05/24 09:00 04/07/24 08:44 Sodium Chloride 1 Gm Tablet PO 1 gm QAM JUAN PABLO Administration Vitamin D 2,000 units 04/05/24 09:00 04/07/24 08:44 Cholecalciferol 1,000 Units Tablet PO 2,000 units BID JUAN PABLO Administration Radiology Results: ITS Impressions Chest X-Ray 04/04/24 11:31 IMPRESSION: No active cardiopulmonary disease No intraperitoneal free air is detected Renal Ultrasound 04/06/24 11:46 Impression: Unremarkable ultrasound of the kidneys. Cholelithiasis and gallbladder sludge incidentally noted. Abdomen/Pelvis CT 04/06/24 19:19 IMPRESSION: Left basilar infiltrate with a small right-sided pleural effusion, an interval change from 04/04/2023. Marked delayed excretion within the bilateral kidneys, consistent with patient's history. Fluid distention of the stomach, extending to the proximal jejunum consistent with patient's history Mural thickening within the rectosigmoid colon with multiple diverticula and trace surrounding inflammatory change, similar in appearance to examination dated 04/04/2024. No drainable fluid collections or gross perforation is noted. Interval development of significant anasarca and retroperitoneal inflammatory change. Labs Labs: Laboratory Results - last 24 hr 04/06/24 04/06/24 04/06/24 12:03 17:33 20:55 WBC RBC Hgb Hct MCV MCH MCHC RDW Plt Count MPV Sodium Potassium Chloride Carbon Dioxide Anion Gap BUN Creatinine Estim Creat Clear Calc Estimated GFR Glucose POC Capillary Glucose 176 H 166 H Calcium Magnesium Total Bilirubin AST ALT Alkaline Phosphatase Total Creatine Kinase Total Protein Albumin Urine Color Dark yellow Urine Appearance Cloudy H Urine pH 5.0 Ur Specific [place] 1.041 H Urine Protein Trace Urine Glucose (UA) Negative Urine Ketones Trace H Ur Blood (Man) Negative Urine Nitrate Negative Urine Bilirubin Negative Urine Urobilinogen 0.2 Add Ur Microanalysis Reviewed Leukocyte Esterase Rfl Trace H Urine RBC 3-5 H Urine WBC 0-5 Ur Squamous Epith Cells Few Urine Bacteria None seen Urine Casts >20 Urine Mucus Present Urine Eosinophils None seen U Random Total Protein 15 Ur Random Sodium Ur Random Urea Urine Creatinine Protein/Creat Ratio 2 04/06/24 04/06/24 04/06/24 20:55 20:55 23:07 WBC RBC Hgb Hct MCV MCH MCHC RDW Plt Count MPV Sodium Potassium Chloride Carbon Dioxide Anion Gap BUN Creatinine Estim Creat Clear Calc Estimated GFR Glucose POC Capillary Glucose 151 H Calcium Magnesium Total Bilirubin AST ALT Alkaline Phosphatase Total Creatine Kinase Total Protein Albumin Urine Color Urine Appearance Urine pH Ur Specific [place] Urine Protein Urine Glucose (UA) Urine Ketones Ur Blood (Man) Urine Nitrate Urine Bilirubin Urine Urobilinogen Add Ur Microanalysis Leukocyte Esterase Rfl Urine RBC Urine WBC Ur Squamous Epith Cells Urine Bacteria Urine Casts Urine Mucus Urine Eosinophils U Random Total Protein 15 Ur Random Sodium 17 Ur Random Urea 176 Urine Creatinine 129.7 129.2 Protein/Creat Ratio 2 0.12 04/07/24 05:18 WBC 8.5 RBC 2.62 L Hgb 8.1 L Hct 26.4 L MCV 100.8 H MCH 30.9 MCHC 30.7 L RDW 14.3 Plt Count 178 MPV 11.2 H Sodium 129 L Potassium 5.2 H Chloride 104 Carbon Dioxide 14 L Anion Gap 11 BUN 45 H Creatinine 5.16 H Estim Creat Clear Calc Not Reportable Estimated GFR 8 L Glucose 118 H POC Capillary Glucose Calcium 8.0 L Magnesium 2.4 H Total Bilirubin 0.3 AST 12 L ALT 7 Alkaline Phosphatase 109 Total Creatine Kinase 56 Total Protein 5.0 L Albumin 2.8 L Urine Color Urine Appearance Urine pH Ur Specific [place] Urine Protein Urine Glucose (UA) Urine Ketones Ur Blood (Man) Urine Nitrate Urine Bilirubin Urine Urobilinogen Add Ur Microanalysis Leukocyte Esterase Rfl Urine RBC Urine WBC Ur Squamous Epith Cells Urine Bacteria Urine Casts Urine Mucus Urine Eosinophils U Random Total Protein Ur Random Sodium Ur Random Urea Urine Creatinine Protein/Creat Ratio 2 Quality VTE Prophylaxis VTE prophylaxis: mechanical ordered -Patient's previous records reviewed on admission -ER notes reviewed in detail on admission -discussed all findings and current treatment plan with patient/Family/POA -Consultations reviewed for recommendations -Patient's disposition for safe discharge discussed with bottle caser Dictation performed by [employer] direct speech recognition software, therefore firer tunnel kiln variants and typographical errors may occur. Hospitalist MIPS Advance Care Plan I have confirmed that the patient's Advanced Care Plan is present, code status is documented, or surrogate decision maker is listed in patient medical record.: Yes Medication Reconciliation I have utilized all available resources to obtain, update and review the patients current medications (includes all prescriptions, OTC, herbals, cannabis, and nutritional supplements).: Yes The patient is not eligible for med reconciliation; the patient is in a emergent medical situation where delaying treatment would jeopardize the patients health.: No
[2024-04-07] MEDS: SODIUM ZIRCONIUM CYCLOSILICATE 10 GM POWD.PACK PO (11:03)
--- NOTE | 2024-04-07 11:22 | P.PNNP_ITS ---
Progress Note: A&P Assessment and Plan (1) JAE (acute kidney injury): Code(s): N17.9 - Acute kidney failure, unspecified Status: Acute Assessment and Plan: * as noted since admission * suspect multifactorial etiology: * prerenal factors * relative hypotension * contrast exposure (CT with contrast on 04/04/24) * LENNIE-I use prior to admission * relative anemia * other (?) * evaluation to date noted: * urine electrolytes prerenal * urine eosinophils negative * UA without evidence of infection * CPK normal * renal ultrasound okay * repeat CT of A/P still notes contrast present in kidneys * concerning that she is not making much urine along with mild hyperkalemia and worsening acidosis * she remains at risk for needing [facility] PICKER/dialysis * follow trend of repeat labs and UOP (2) Chronic kidney disease, stage IV (severe): Code(s): N18.4 - Chronic kidney disease, stage 4 (severe) Status: Acute Assessment and Plan: * baseline creatinine runs ~ 1.8 - 2.3mg/dl * due hypertension, diabetes, and age-related change with contributions with previous use of NSAIDs (3) Metabolic acidosis: Code(s): E87.20 - Acidosis, unspecified Status: Acute Assessment and Plan: * due to worsening JAE/ARF * attempting to compensate with sodium bicarb (oral and IV) * follow trend (4) Hyponatremia: Code(s): E87.1 - Hypo-osmolality and hyponatremia Status: Acute Assessment and Plan: * chronic issues at baseline * likely worsened by JAE/ARF * given JAE, sodium tabs on hold * follow trend of sodum level (5) GI bleed: Code(s): K92.2 - Gastrointestinal hemorrhage, unspecified Status: Acute Assessment and Plan: * 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 * known history of Barrettt's esophagus * Hgb dropped since admission * GI following: * s/p EGD - no active bleeding with Ferrell's esophagus * on PPI * follow trend of H/H * PRBC transfusion per protocol (6) Colitis: Code(s): K52.9 - Noninfective gastroenteritis and colitis, unspecified Status: Acute Assessment and Plan: * as noted by admission CT of A/P * GI recommendations noted * on antibiotics * advance diet as tolerated (7) Chronic anemia: Code(s): D64.9 - Anemia, unspecified Status: Chronic Assessment and Plan: * probably related to CKD * acute worsening noted since admission * complicated by #2 * consider SANDRA * follow H/H (8) Hypertension: Code(s): I10 - Essential (primary) hypertension Status: Acute Assessment and Plan: * BP on the soft side since admission * lisinopril on hold due to #1 * follow trend of hemodynamics Will continue to follow. Subjective Date/time seen: 04/07/24 11:22 Interval history: Follow-up for acute kidney injury/acute renal failure on chronic kidney disease. Renal function/creatinine worse by AM labs; more concerning is that despite trial of IVFs yesterday, she is not making much urine either; results of repeat CT scan of abdomen/pelvis done earlier this morning noted; only major complaint is that of abdominal fullness and generalized weakness at the time of my visit. Exam 2 Narrative: General: elderly but somewhat ill-appearing female in NAD Heart: normal S1 and S2; no rub Lungs: clear to auscultation Abdomen: soft, mild TTP, nondistended, positive bowel sounds Extremities: no cyanosis or clubbing; no edema Skin: warm and dry Objective Data Vital Signs Vital Signs: Vital Signs Temp Pulse Resp BP Pulse Ox O2 Del Method 04/07/24 08:00 Room Air 04/07/24 05:53 97.5 F L 85 16 140/48 L 95 04/07/24 04:00 82 04/07/24 00:00 72 04/06/24 21:15 97.5 F L 80 16 117/57 L 100 04/06/24 20:00 78 04/06/24 20:00 Room Air 04/06/24 16:00 79 Intake/Output Intake/Output: Intake & Output 04/04/24 04/05/24 04/06/24 04/07/24 23:59 23:59 23:59 23:59 Intake Total 1875.0 2690 1788.8 297 Output Total 50 Balance 1875.0 2690 1788.8 247 Meds/Results Medications: Active Medications Generic Name Dose Route Start Last Admin Trade Name Freq PRN Reason Stop Dose Admin Acetaminophen 650 mg 04/04/24 12:10 Acetaminophen 325 Mg Tablet PO Q4H PRN Mild Pain (1-3) or Fever Artificial Tears 1 drop 04/04/24 20:15 Artificial Tears Ophth Soln 15 Ml Bottle EACH EYE Q4H PRN Dry Eye(S) Bupropion HCl 100 mg 04/05/24 09:00 04/07/24 08:44 Bupropion Hcl 100 Mg Tablet PO 100 mg BID JUAN PABLO Administration Calcitriol 0.25 mcg 04/06/24 09:00 04/06/24 10:09 Calcitriol 0.25 Mcg Capsule BY MOUTH 0.25 mcg [id number] JUAN PABLO Administration Carvedilol 12.5 mg 04/04/24 21:00 04/05/24 20:43 Carvedilol 12.5 Mg Tablet PO Not Given Q12HR JUAN PABLO Dextrose 12.5 gm 04/04/24 21:51 Dextrose 50% 25 Gm/50 Ml Syringe IV PUSH PRN PRN Hypoglycemia Protocol Escitalopram Oxalate 20 mg 04/05/24 09:00 04/07/24 08:44 Escitalopram Oxalate 10 Mg Tablet PO 20 mg DAILY JUAN PABLO Administration Famotidine 20 mg 04/04/24 21:00 04/07/24 08:44 Famotidine 20 Mg Tablet PO 20 mg Q12HR JUAN PABLO Administration Gabapentin 300 mg 04/05/24 06:00 04/07/24 12:59 Gabapentin 300 Mg Capsule PO 300 mg Q8HR JUAN PABLO Administration Glucagon 1 mg 04/04/24 21:51 Glucagon For Inj 1 Mg Vial IM PRN PRN Hypoglycemia Protocol Glucose 15 gm 04/04/24 21:51 Glucose Oral Gel 15 Gm Of Glucse In 37.5 Gm Tube PO PRN PRN Hypoglycemia Protocol Hydromorphone HCl 0.5 mg 04/04/24 12:10 Hydromorphone Hcl Inj (*Crx) 1 Mg/Ml Syr IV PUSH Q4H PRN Pain Rated 7-10 Dextrose 1,000 mls @ 100 mls/hr 04/04/24 21:51 Dextrose 5% 1,000 Ml IVPB PRN PRN Hypoglycemia Protocol Ceftriaxone Sodium 1 gm in 50 mls @ 100 mls/hr 04/06/24 09:00 04/07/24 08:45 Rocephin 1 Gm/Ns 50 Ml IVPB 100 mls/hr Q24H JUAN PABLO Administration Latanoprost 1 drop 04/05/24 09:00 04/07/24 08:44 Latanoprost 0.005% Op Soln 2.5 Ml Btl EACH EYE 1 drop DAILY JUAN PABLO Administration Loratadine 10 mg 04/04/24 20:25 Loratadine 10 Mg Tablet PO QAM PRN allergy symptoms Metronidazole 500 mg 04/06/24 14:00 04/07/24 12:59 Metronidazole 500 Mg Tablet PO 500 mg Q8HR JUAN PABLO Administration Ondansetron HCl 4 mg 04/04/24 12:10 Ondansetron Inj 4 Mg/2 Ml Vial IV PUSH Q4H PRN Nausea Pantoprazole Sodium 40 mg 04/04/24 21:00 04/07/24 08:44 Pantoprazole Sodium Iv 40 Mg Vial IV PUSH 40 mg Q12HR JUAN PABLO Administration Pravastatin Sodium 40 mg 04/05/24 09:00 04/07/24 08:44 Pravastatin Sodium 20 Mg Tablet PO 40 mg DAILY JUAN PABLO Administration Quetiapine Fumarate 100 mg 04/04/24 21:00 04/06/24 20:16 Quetiapine Fumarate 100 Mg Tablet PO 100 mg HS JUAN PABLO Administration Sodium Chloride 1 gm 04/05/24 09:00 04/07/24 08:44 Sodium Chloride 1 Gm Tablet PO 1 gm QAM JUAN PABLO Administration Vitamin D 2,000 units 04/05/24 09:00 04/07/24 08:44 Cholecalciferol 1,000 Units Tablet PO 2,000 units BID JUAN PABLO Administration Radiology Results: ITS Impressions Chest X-Ray 04/04/24 11:31 IMPRESSION: No active cardiopulmonary disease No intraperitoneal free air is detected Renal Ultrasound 04/06/24 11:46 Impression: Unremarkable ultrasound of the kidneys. Cholelithiasis and gallbladder sludge incidentally noted. Abdomen/Pelvis CT 04/06/24 19:19 IMPRESSION: Left basilar infiltrate with a small right-sided pleural effusion, an interval change from 04/04/2023. Marked delayed excretion within the bilateral kidneys, consistent with patient's history. Fluid distention of the stomach, extending to the proximal jejunum consistent with patient's history Mural thickening within the rectosigmoid colon with multiple diverticula and trace surrounding inflammatory change, similar in appearance to examination dated 04/04/2024. No drainable fluid collections or gross perforation is noted. Interval development of significant anasarca and retroperitoneal inflammatory change. Labs Labs: Laboratory Tests 04/07/24 05:18 04/07/24 05:18 Calcium 8.0 L Magnesium 2.4 H Total Bilirubin 0.3 AST 12 L ALT 7 Alkaline Phosphatase 109 Total Creatine Kinase 56 Total Protein 5.0 L Albumin 2.8 L
[2024-04-07 13:02] LABS: Glucose Point of Care 179 mg/dl (65-105)
[2024-04-07] MEDS: FUROSEMIDE INJ 40 MG/4 ML VIAL IV PUSH (16:34)
--- NOTE | 2024-04-07 17:43 | P.PNGI_ITS ---
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 Importantly, the endoscopy effectively ruled out sources of acute gastrointestinal bleeding, such as ulcers, erosions, or neoplasms. Therefore, intravenous pantoprazole can be discontinued. Given the presence of Ferrell's esophagus, a well-established risk factor for GERD, oral pantoprazole should be continued, 40 mg qD. The finding of colitis on CT scan lacks a clear clinical correlate. It may be associated with diverticulosis, specifically segmental colitis associated with diverticulosis (SCAD). Antibiotic therapy is not warranted in this contextt. Procalcitonin levels will be obtained in the morning to guide the decision regarding continued antibiotic use. Finally, the decreased hemoglobin may be secondary to acute kidney injury, which is currently her primary medical concern. The patient is under the care of the nephrology service. (2) Nausea & vomiting: Code(s): R11.2 - Nausea with vomiting, unspecified Status: Acute Subjective Date/time seen: 04/07/24 17:43 Interval history: Patient not complaining of abdominal pain, heartburn, tolerating oral intake. Exam Narrative: * GENERAL: Alert and oriented x 3 chronically ill looking pleasant female. No acute distress. * EYES: PERRLA. * HEENT: Moist mucous membranes. * LUNGS: Clear to auscultation bilaterally. No accessory muscle use. * CARDIOVASCULAR: Regular rate and rhythm. No murmur. No JVD. S1-S2 * ABDOMEN: Soft, moderate tenderness and non-distended. hypoactive bowel sounds * EXTREMITIES: No edema. Non-tender * SKIN: No rashes or lesions. Skin warm, dry. * NEUROLOGIC: No focal neurological deficits. * PSYCHIATRIC: Appropriate mood and affect. Objective Data Vital Signs Vital Signs: Vital Signs - 24 hr 04/06/24 20:00 04/06/24 20:00 04/06/24 21:15 Temperature 97.5 F L Pulse Rate 78 80 Respiratory Rate 16 Blood Pressure 117/57 L Pulse Oximetry 100 Oxygen Delivery Room Air 04/07/24 00:00 04/07/24 04:00 04/07/24 05:53 Temperature 97.5 F L Pulse Rate 72 82 85 Respiratory Rate 16 Blood Pressure 140/48 L Pulse Oximetry 95 Oxygen Delivery 04/07/24 08:00 04/07/24 08:00 04/07/24 12:00 Temperature Pulse Rate 72 92 Respiratory Rate Blood Pressure Pulse Oximetry Oxygen Delivery Room Air 04/07/24 14:00 Temperature 96.5 F L Pulse Rate 86 Respiratory Rate 16 Blood Pressure 108/58 L Pulse Oximetry 97 Oxygen Delivery Intake/Output Intake/Output: Intake & Output 04/04/24 04/05/24 04/06/24 04/07/24 23:59 23:59 23:59 23:59 Intake Total 1875.0 2690 1788.8 597 Output Total 50 Balance 1875.0 2690 1788.8 547 Meds/Results Medications: Active Medications Generic Name Dose Route Start Last Admin Trade Name Freq PRN Reason Stop Dose Admin Acetaminophen 650 mg 04/04/24 12:10 Acetaminophen 325 Mg Tablet PO Q4H PRN Mild Pain (1-3) or Fever Artificial Tears 1 drop 04/04/24 20:15 Artificial Tears Ophth Soln 15 Ml Bottle EACH EYE Q4H PRN Dry Eye(S) Bupropion HCl 100 mg 04/05/24 09:00 04/07/24 16:36 Bupropion Hcl 100 Mg Tablet PO 100 mg BID JUAN PABLO Administration Calcitriol 0.25 mcg 04/06/24 09:00 04/06/24 10:09 Calcitriol 0.25 Mcg Capsule BY MOUTH 0.25 mcg [id number] JUAN PABLO Administration Carvedilol 12.5 mg 04/04/24 21:00 04/05/24 20:43 Carvedilol 12.5 Mg Tablet PO Not Given Q12HR JUAN PABLO Dextrose 12.5 gm 04/04/24 21:51 Dextrose 50% 25 Gm/50 Ml Syringe IV PUSH PRN PRN Hypoglycemia Protocol Escitalopram Oxalate 20 mg 04/05/24 09:00 04/07/24 08:44 Escitalopram Oxalate 10 Mg Tablet PO 20 mg DAILY JUAN PABLO Administration Famotidine 20 mg 04/04/24 21:00 04/07/24 08:44 Famotidine 20 Mg Tablet PO 20 mg Q12HR JUAN PABLO Administration Gabapentin 300 mg 04/05/24 06:00 04/07/24 12:59 Gabapentin 300 Mg Capsule PO 300 mg Q8HR JUAN PABLO Administration Glucagon 1 mg 04/04/24 21:51 Glucagon For Inj 1 Mg Vial IM PRN PRN Hypoglycemia Protocol Glucose 15 gm 04/04/24 21:51 Glucose Oral Gel 15 Gm Of Glucse In 37.5 Gm Tube PO PRN PRN Hypoglycemia Protocol Hydromorphone HCl 0.5 mg 04/04/24 12:10 Hydromorphone Hcl Inj (*Crx) 1 Mg/Ml Syr IV PUSH Q4H PRN Pain Rated 7-10 Dextrose 1,000 mls @ 100 mls/hr 04/04/24 21:51 Dextrose 5% 1,000 Ml IVPB PRN PRN Hypoglycemia Protocol Ceftriaxone Sodium 1 gm in 50 mls @ 100 mls/hr 04/06/24 09:00 04/07/24 08:45 Rocephin 1 Gm/Ns 50 Ml IVPB 100 mls/hr Q24H JUAN PABLO Administration Latanoprost 1 drop 04/05/24 09:00 04/07/24 08:44 Latanoprost 0.005% Op Soln 2.5 Ml Btl EACH EYE 1 drop DAILY JUAN PABLO Administration Loratadine 10 mg 04/04/24 20:25 Loratadine 10 Mg Tablet PO QAM PRN allergy symptoms Metronidazole 500 mg 04/06/24 14:00 04/07/24 12:59 Metronidazole 500 Mg Tablet PO 500 mg Q8HR JUAN PABLO Administration Ondansetron HCl 4 mg 04/04/24 12:10 Ondansetron Inj 4 Mg/2 Ml Vial IV PUSH Q4H PRN Nausea Pantoprazole Sodium 40 mg 04/04/24 21:00 04/07/24 08:44 Pantoprazole Sodium Iv 40 Mg Vial IV PUSH 40 mg Q12HR JUAN PABLO Administration Pravastatin Sodium 40 mg 04/05/24 09:00 04/07/24 08:44 Pravastatin Sodium 20 Mg Tablet PO 40 mg DAILY JUAN PABLO Administration Quetiapine Fumarate 100 mg 04/04/24 21:00 04/06/24 20:16 Quetiapine Fumarate 100 Mg Tablet PO 100 mg HS JUAN PABLO Administration Sodium Chloride 1 gm 04/05/24 09:00 04/07/24 08:44 Sodium Chloride 1 Gm Tablet PO 1 gm QAM JUAN PABLO Administration Vitamin D 2,000 units 04/05/24 09:00 04/07/24 16:36 Cholecalciferol 1,000 Units Tablet PO 2,000 units BID JUAN PABLO Administration Radiology Results: ITS Impressions Chest X-Ray 04/04/24 11:31 IMPRESSION: No active cardiopulmonary disease No intraperitoneal free air is detected Renal Ultrasound 04/06/24 11:46 Impression: Unremarkable ultrasound of the kidneys. Cholelithiasis and gallbladder sludge incidentally noted. Abdomen/Pelvis CT 04/06/24 19:19 IMPRESSION: Left basilar infiltrate with a small right-sided pleural effusion, an interval change from 04/04/2023. Marked delayed excretion within the bilateral kidneys, consistent with patient's history. Fluid distention of the stomach, extending to the proximal jejunum consistent with patient's history Mural thickening within the rectosigmoid colon with multiple diverticula and trace surrounding inflammatory change, similar in appearance to examination dated 04/04/2024. No drainable fluid collections or gross perforation is noted. Interval development of significant anasarca and retroperitoneal inflammatory change. Labs Labs: Laboratory Results - last 24 hr 04/06/24 04/06/24 04/06/24 17:33 20:55 20:55 WBC RBC Hgb Hct MCV MCH MCHC RDW Plt Count MPV Sodium Potassium Chloride Carbon Dioxide Anion Gap BUN Creatinine Estim Creat Clear Calc Estimated GFR Glucose POC Capillary Glucose 166 H Calcium Magnesium Total Bilirubin AST ALT Alkaline Phosphatase Total Creatine Kinase Total Protein Albumin Urine Color Dark yellow Urine Appearance Cloudy H Urine pH 5.0 Ur Specific [place] 1.041 H Urine Protein Trace Urine Glucose (UA) Negative Urine Ketones Trace H Ur Blood (Man) Negative Urine Nitrate Negative Urine Bilirubin Negative Urine Urobilinogen 0.2 Add Ur Microanalysis Reviewed Leukocyte Esterase Rfl Trace H Urine RBC 3-5 H Urine WBC 0-5 Ur Squamous Epith Cells Few Urine Bacteria None seen Urine Casts >20 Urine Mucus Present Urine Eosinophils None seen U Random Total Protein 15 15 Ur Random Sodium 17 Ur Random Urea 176 Urine Creatinine 129.7 Protein/Creat Ratio 2 04/06/24 04/06/24 04/07/24 20:55 23:07 05:18 WBC 8.5 RBC 2.62 L Hgb 8.1 L Hct 26.4 L MCV 100.8 H MCH 30.9 MCHC 30.7 L RDW 14.3 Plt Count 178 MPV 11.2 H Sodium 129 L Potassium 5.2 H Chloride 104 Carbon Dioxide 14 L Anion Gap 11 BUN 45 H Creatinine 5.16 H Estim Creat Clear Calc Not Reportable Estimated GFR 8 L Glucose 118 H POC Capillary Glucose 151 H Calcium 8.0 L Magnesium 2.4 H Total Bilirubin 0.3 AST 12 L ALT 7 Alkaline Phosphatase 109 Total Creatine Kinase 56 Total Protein 5.0 L Albumin 2.8 L Urine Color Urine Appearance Urine pH Ur Specific [place] Urine Protein Urine Glucose (UA) Urine Ketones Ur Blood (Man) Urine Nitrate Urine Bilirubin Urine Urobilinogen Add Ur Microanalysis Leukocyte Esterase Rfl Urine RBC Urine WBC Ur Squamous Epith Cells Urine Bacteria Urine Casts Urine Mucus Urine Eosinophils U Random Total Protein Ur Random Sodium Ur Random Urea Urine Creatinine 129.2 Protein/Creat Ratio 2 0.12 04/07/24 12:48 WBC RBC Hgb Hct MCV MCH MCHC RDW Plt Count MPV Sodium Potassium Chloride Carbon Dioxide Anion Gap BUN Creatinine Estim Creat Clear Calc Estimated GFR Glucose POC Capillary Glucose 179 H Calcium Magnesium Total Bilirubin AST ALT Alkaline Phosphatase Total Creatine Kinase Total Protein Albumin Urine Color Urine Appearance Urine pH Ur Specific [place] Urine Protein Urine Glucose (UA) Urine Ketones Ur Blood (Man) Urine Nitrate Urine Bilirubin Urine Urobilinogen Add Ur Microanalysis Leukocyte Esterase Rfl Urine RBC Urine WBC Ur Squamous Epith Cells Urine Bacteria Urine Casts Urine Mucus Urine Eosinophils U Random Total Protein Ur Random Sodium Ur Random Urea Urine Creatinine Protein/Creat Ratio 2
[2024-04-07] MEDS: QUEtiapine FUMARATE 100 MG TABLET PO (21:06)
[2024-04-08] VITALS (12 sets, daily range): BP systolic 100–133; BP diastolic 44–94; PULSE 70–878; RESP 14–24; TEMP 35.9–36.9; O2SAT 93–97
[2024-04-08 00:10] LABS: Glucose Point of Care 170 mg/dl (65-105)
[2024-04-08] MEDS: metroNIDAZOLE 500 MG TABLET PO (05:23)
[2024-04-08] MEDS: GABAPENTIN 300 MG CAPSULE PO (05:23)
[2024-04-08 06:08] LABS: Hematocrit 25.3 % (37.0-47.0); Hemoglobin 7.9 g/dL (12.0-15.0); Mean Corpuscular HGB Conc 31.2 g/dl (32-36); Mean Corpuscular Hemoglobin 31.5 pg (26-34); Mean Corpuscular Volume 100.8 fl (80-100); Mean Platelet Volume 11.1 fl (7.4-10.4); Platelet Count Result 196 k/mm3 (150-375); Red Blood Count 2.51 M/mm3 (4.2-5.4); Red Cell Distribution Width 14.4 % (11.5-14.5)
[2024-04-08 06:32] LABS: Alanine Aminotransferase 6 U/L (6-35); Albumin Level 2.6 g/dL (3.5-5.1); Alkaline Phosphatase 61 U/L (38-126); Anion Gap 10 mmol/L (4-12); Aspartate Amino Transferase 11 U/L (14-36); Bilirubin,Total 0.3 mg/dL (0.2-1.3); Blood Urea Nitrogen 45 mg/dL (7-17); Calcium 7.9 mg/dL (8.4-10.2); Carbon Dioxide 13 mmol/L (22-30); Chloride 102 mmol/L (98-107); Estimated Glomerular Filt Rate 6; Glucose 100 mg/dL (65-110); Magnesium 2.3 mg/dL (1.6-2.3); Potassium 4.8 mmol/L (3.4-5.0); Sodium 125 mmol/L (137-145)
[2024-04-08 06:55] LABS: Procalcitonin 0.4 ng/mL
[2024-04-08 07:09] LABS: Hepatitis B Surface Antigen Negative (Negative)
[2024-04-08 07:26] LABS: Hepatitis B Surface Anti Res Negative
--- NOTE | 2024-04-08 07:30 | WPDGIPROGNO ---
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 The diagnosis of colitis was based on imaging studies but patient does not have a clinical picture compatible with colitis. Procalcitonin levels are normal. Antibiotics discontinued due to the risk of C difficile (elderly patient hospitalized,IV PPis used). Plan d/c Ceftriaxone and Metronidazole Time Spent With Patient Time with patient: less than 15 minutes Subjective Date/time seen: 04/08/24 07:30 Interval history: No fever, no abdominal pain. Exam Narrative: unchanged from previous Objective Data Vital Signs Vital Signs: Vital Signs - 24 hr 04/07/24 08:00 04/07/24 08:00 04/07/24 12:00 Temperature Pulse Rate 72 92 Respiratory Rate Blood Pressure Pulse Oximetry Oxygen Delivery Room Air 04/07/24 14:00 04/07/24 16:00 04/07/24 20:00 Temperature 96.5 F L Pulse Rate 86 76 Respiratory Rate 16 Blood Pressure 108/58 L Pulse Oximetry 97 Oxygen Delivery Room Air 04/07/24 20:00 04/07/24 21:09 04/08/24 00:00 Temperature 97.7 F Pulse Rate 77 77 84 Respiratory Rate 14 Blood Pressure 119/48 L Pulse Oximetry 97 Oxygen Delivery 04/08/24 04:00 04/08/24 06:00 Temperature 98.4 F Pulse Rate 71 88 Respiratory Rate 16 Blood Pressure 107/94 H Pulse Oximetry 93 Oxygen Delivery Intake/Output Intake/Output: Intake & Output 04/05/24 04/06/24 04/07/24 04/08/24 23:59 23:59 23:59 23:59 Intake Total 2690 1788.8 647 Output Total 50 20 Balance 2690 1788.8 597 -20 Meds/Results Medications: Active Medications Generic Name Dose Route Start Last Admin Trade Name Freq PRN Reason Stop Dose Admin Acetaminophen 650 mg 04/04/24 12:10 Acetaminophen 325 Mg Tablet PO Q4H PRN Mild Pain (1-3) or Fever Artificial Tears 1 drop 04/04/24 20:15 Artificial Tears Ophth Soln 15 Ml Bottle EACH EYE Q4H PRN Dry Eye(S) Bupropion HCl 100 mg 04/05/24 09:00 04/07/24 16:36 Bupropion Hcl 100 Mg Tablet PO 100 mg BID JUAN PABLO Administration Calcitriol 0.25 mcg 04/06/24 09:00 04/06/24 10:09 Calcitriol 0.25 Mcg Capsule BY MOUTH 0.25 mcg [id number] JUAN PABLO Administration Carvedilol 12.5 mg 04/04/24 21:00 04/05/24 20:43 Carvedilol 12.5 Mg Tablet PO Not Given Q12HR JUAN PABLO Dextrose 12.5 gm 04/04/24 21:51 Dextrose 50% 25 Gm/50 Ml Syringe IV PUSH PRN PRN Hypoglycemia Protocol Escitalopram Oxalate 20 mg 04/05/24 09:00 04/07/24 08:44 Escitalopram Oxalate 10 Mg Tablet PO 20 mg DAILY JUAN PABLO Administration Famotidine 20 mg 04/04/24 21:00 04/07/24 21:06 Famotidine 20 Mg Tablet PO 20 mg Q12HR JUAN PABLO Administration Gabapentin 300 mg 04/05/24 06:00 04/08/24 05:23 Gabapentin 300 Mg Capsule PO 300 mg Q8HR JUAN PABLO Administration Glucagon 1 mg 04/04/24 21:51 Glucagon For Inj 1 Mg Vial IM PRN PRN Hypoglycemia Protocol Glucose 15 gm 04/04/24 21:51 Glucose Oral Gel 15 Gm Of Glucse In 37.5 Gm Tube PO PRN PRN Hypoglycemia Protocol Hydromorphone HCl 0.5 mg 04/04/24 12:10 Hydromorphone Hcl Inj (*Crx) 1 Mg/Ml Syr IV PUSH Q4H PRN Pain Rated 7-10 Dextrose 1,000 mls @ 100 mls/hr 04/04/24 21:51 Dextrose 5% 1,000 Ml IVPB PRN PRN Hypoglycemia Protocol Latanoprost 1 drop 04/05/24 09:00 04/07/24 08:44 Latanoprost 0.005% Op Soln 2.5 Ml Btl EACH EYE 1 drop DAILY JUAN PABLO Administration Loratadine 10 mg 04/04/24 20:25 Loratadine 10 Mg Tablet PO QAM PRN allergy symptoms Ondansetron HCl 4 mg 04/04/24 12:10 Ondansetron Inj 4 Mg/2 Ml Vial IV PUSH Q4H PRN Nausea Pravastatin Sodium 40 mg 04/05/24 09:00 04/07/24 08:44 Pravastatin Sodium 20 Mg Tablet PO 40 mg DAILY JUAN PABLO Administration Quetiapine Fumarate 100 mg 04/04/24 21:00 04/07/24 21:06 Quetiapine Fumarate 100 Mg Tablet PO 100 mg HS JUAN PABLO Administration Sodium Bicarbonate 1,300 mg 04/08/24 09:00 Sodium Bicarbonate Tab 650 Mg Tablet PO BID JUAN PABLO Sodium Chloride 1 gm 04/05/24 09:00 04/07/24 08:44 Sodium Chloride 1 Gm Tablet PO 1 gm QAM JUAN PABLO Administration Vitamin D 2,000 units 04/05/24 09:00 04/07/24 16:36 Cholecalciferol 1,000 Units Tablet PO 2,000 units BID JUAN PABLO Administration Radiology Results: ITS Impressions Chest X-Ray 04/04/24 11:31 IMPRESSION: No active cardiopulmonary disease No intraperitoneal free air is detected Renal Ultrasound 04/06/24 11:46 Impression: Unremarkable ultrasound of the kidneys. Cholelithiasis and gallbladder sludge incidentally noted. Abdomen/Pelvis CT 04/06/24 19:19 IMPRESSION: Left basilar infiltrate with a small right-sided pleural effusion, an interval change from 04/04/2023. Marked delayed excretion within the bilateral kidneys, consistent with patient's history. Fluid distention of the stomach, extending to the proximal jejunum consistent with patient's history Mural thickening within the rectosigmoid colon with multiple diverticula and trace surrounding inflammatory change, similar in appearance to examination dated 04/04/2024. No drainable fluid collections or gross perforation is noted. Interval development of significant anasarca and retroperitoneal inflammatory change. Labs Labs: Laboratory Results - last 24 hr 04/07/24 04/08/24 04/08/24 12:48 00:02 05:18 WBC 8.0 RBC 2.51 L Hgb 7.9 L Hct 25.3 L MCV 100.8 H MCH 31.5 MCHC 31.2 L RDW 14.4 Plt Count 196 MPV 11.1 H Sodium 125 L Potassium 4.8 Chloride 102 Carbon Dioxide 13 L Anion Gap 10 BUN 45 H Creatinine 6.35 H Estim Creat Clear Calc Not Reportable Estimated GFR 6 L Glucose 100 POC Capillary Glucose 179 H 170 H Calcium 7.9 L Magnesium 2.3 Total Bilirubin 0.3 AST 11 L ALT 6 Alkaline Phosphatase 61 Total Protein 5.0 L Albumin 2.6 L Procalcitonin 0.4 Hep Bs Antigen Negative Hep Bs Antibody Negative
[2024-04-08 07:44] LABS: Glucose Point of Care 119 mg/dl (65-105)
[2024-04-08] MEDS: PRAVASTATIN SODIUM 20 MG TABLET 40 MG PO (08:51)
[2024-04-08] MEDS: SODIUM BICARBONATE TAB 650 MG TABLET 1300 MG PO ×2 (08:52→17:40)
[2024-04-08] MEDS: LATANOPROST 0.005% OP SOLN 2.5 ML BTL 1 DROP EACH EYE (08:52)
[2024-04-08] MEDS: buPROPion HCL 100 MG TABLET PO (08:52)
[2024-04-08] MEDS: ESCITALOPRAM OXALATE 10 MG TABLET PO (08:52)
[2024-04-08] MEDS: calcitrioL 0.25 MCG CAPSULE BY MOUTH (08:52)
[2024-04-08] MEDS: CHOLECALCIFEROL 1,000 UNITS TABLET 2000 UNITS PO ×2 (08:52→17:40)
[2024-04-08 11:53] LABS: Glucose Point of Care 139 mg/dl (65-105)
--- NOTE | 2024-04-08 12:36 | P.PNIM_ITS ---
Progress Note: A&P Assessment and Plan (1) Acute kidney injury (JAE) with acute tubular necrosis (ATN): Code(s): N17.0 - Acute kidney failure with tubular necrosis Status: Acute Assessment and Plan: Patient received IV contrast on 04/04/24 with already underlying CKD now with worsening renal failure * Baseline around 2.00 currently 3.00 04/05/24 * Avoid nephrotoxic drugs. * Avoid NSAIDs. * Routine CMP monitoring GFR. * Monitor electrolytes especially potassium. 04/06/2024 * Worsening Cr 4.40 today could be secondary Anesthesia from EGD * NS 75 D/C D/ * nephrology consulted for further recommendations and evaluation * bilateral renal ultrasound * Cipro D/c switched to Rocephin 04/07/2024: * Worsening Cr 5.16 * CT showing contrast in Kidneys from 3 days prior and anasarca in the stomach * failed fluid challenge will D/C * no urinary output Pedro placed with only 50 mL * Plan for renal function in the AM if no improvement hoping for renal recovery but may need temporary dialysis with consult to surgery for dialysis access. * Potassium 5.2 dose of Lokelma 04/08: JAE continues to worsen, acidosis continues to worsen, declining mental status with slurred speech and patient stating that she believes she a stroke, MRI ordered, several medications held this afternoon. Nephrology aware as I spoke with Dr. Reyna earlier and RN called to update with worsening clinical picture. 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 This type of lesion can erode and cause rectal bleeding. * GI consulted * GI recommended ciprofloxacin and Flagyl * will need follow-up colonoscopy in 6-8 weeks after infectious process resulting unless her hemoglobin continues to trend down * PPI BID * clear liquid diet * WBC 12.2 today * Stool studies pending * bright red blood in stool reported * monitoring HGB 04/06/2024 * patient advanced to low-fiber diet but had N/V change back to clear liquid * F/U ct ABD * Hgb stable 04/08: Tolerated clears but altered LOC and slurred speech today, patient moved to IMU after findings of metabolic acidosis with incomplete compensation. L (4) Chronic kidney disease, stage IV (severe): Code(s): N18.4 - Chronic kidney disease, stage 4 (severe) Status: Acute Assessment and Plan: * Gentle IV hydration. * Baseline around 2.00 currently 3.00 04/05/24 * Avoid nephrotoxic drugs. * Monitor antihypertensive drug therapy. * Avoid NSAIDs. * Routine CMP monitoring GFR. * Monitor electrolytes especially potassium. * Antibiotic doses depending on creatinine clearance. * Pharmacy does medications. * Routine follow-up with Nephrology as an outpatient. 04/06/2024 * Worsening Cr 4.40 today could be secondary Anesthesia from EGD * NS 75 D/C D/5 * nephrology consulted for further recommendations and evaluation * bilateral renal ultrasound * Cipro D/c switched to Rocephin 04/08: Tolerated clears but altered LOC and slurred speech today, patient moved to IMU after findings of metabolic acidosis with incomplete compensation. Potentially encephalopathy due to build up of sedating medications. MRI ordered to assess for Stroke. 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 (8) Hypomagnesemia: Code(s): E83.42 - Hypomagnesemia Status: Acute Assessment and Plan: * Mag 1.1 * replenished with 4g * trend and replenish as needed RESOLVED 04/08: Magnesium 2.3 (9) Hyponatremia: Code(s): E87.1 - Hypo-osmolality and hyponatremia Status: Acute Assessment and Plan: * chronically low * resume sodium tablets 1000 * monitor neurological status 04/08: Sodium declining, salt tabs had been on hold so restarted today. IV fluid bolus LR 1000 mL and sodium bicarb given for metabolic acidosis related to decreased kidney function. (10) Metabolic acidosis: Code(s): E87.20 - Acidosis, unspecified Status: Acute Assessment and Plan: 04/08: patient with altered level of consciousness slurred speech. Ordered ABG. pH 7.147 pCO2 35.7 PO2 79.7 HC03 12.1 base excess -15.7 ordered 1 L LR bolus and 2 amps of sodium bicarb IV push patient moved to IMU (11) Encephalopathy acute: Code(s): G93.40 - Encephalopathy, unspecified Status: Acute Assessment and Plan: 04/08: patient with slurred speech difficulty awakening concerned for CO2 narcosis ABG resulted metabolic acidosis, beta hydroxybutyrate and lactic acid normal metabolic acidosis related to decreased renal function ammonia level negative, MRI brain without contrast also negative Plan Code status: Full code per patient DVT prophylaxis: SCD Stress ulcer prophylaxis: Protonix 40 BID PT/OT notes: NA Disposition: Moved to IMU, unsure if patient will need dialysis but Nephrology notified of declining status Time Spent With Patient Time: Total time 100 minutes Time with patient: Greater than 35 minutes Subjective Date/time seen: 04/08/24 12:36 Interval history: ROS unable to be completed due to patient condition encephalopathy difficulty understanding speech difficult to arouse patient. Subjectively patient was stating to the nurse earlier that she thought she had a stroke but she was speaking same weight yesterday while grandson was here and it seems this speech pattern waxing and waning was perceived as normal by the grandson according to the RN taking care of patient. Objectively, labs show worsening renal dysfunction, worsening hyponatremia, worsening metabolic acidosis. RN also stated very poor urine output by Mayela for a couple days. Nephrology updated, awaiting decision on when/if to start dialysis. Review of Systems Review of Systems: 12 systems were reviewed and are negativ e except for as per HPI. All systems reviewed & are unremarkable except as noted in HPI and below Exam Narrative: * GENERAL: awake and alert, chronically ill looking pleasant female. acutely confused with slurred speech and difficulty coordinating eating with utensils * EYES: PERRLA. * HEENT: Moist mucous membranes. * LUNGS: Clear to auscultation bilaterally. No accessory muscle use. * CARDIOVASCULAR: Regular rate and rhythm. No murmur. No JVD. S1-S2 * ABDOMEN: Soft, non-tender and non-distended. normoactive bowel sounds * EXTREMITIES: No edema. Non-tender * SKIN: No rashes or lesions. Skin warm, dry. * NEUROLOGIC: slurred speech, patient reaching to grab utensils during meal but not coordinated no focal weakness, no choking fluids, unable to obtain full assessment due to encephalopathy/confusion * PSYCHIATRIC: Unable to assess due to encephalopathy Objective Data Vital Signs Vital Signs: Vital Signs - 24 hr 04/07/24 14:00 04/07/24 16:00 04/07/24 20:00 Temperature 35.8 C L Pulse Rate 86 76 Respiratory Rate 16 Blood Pressure 108/58 L Pulse Oximetry 97 Oxygen Delivery Room Air 04/07/24 20:00 04/07/24 21:09 04/08/24 00:00 Temperature 36.5 C Pulse Rate 77 77 84 Respiratory Rate 14 Blood Pressure 119/48 L Pulse Oximetry 97 Oxygen Delivery 04/08/24 04:00 04/08/24 06:00 04/08/24 08:00 Temperature 36.9 C Pulse Rate 71 88 Respiratory Rate 16 Blood Pressure 107/94 H Pulse Oximetry 93 Oxygen Delivery Room Air 04/08/24 08:00 04/08/24 08:29 Temperature 36.4 C Pulse Rate 86 Respiratory Rate 16 Blood Pressure 104/82 Pulse Oximetry 97 94 Oxygen Delivery Room Air Intake/Output Intake/Output: Intake & Output 04/05/24 04/06/24 04/07/24 04/08/24 23:59 23:59 23:59 23:59 Intake Total 2690 1788.8 647 20 Output Total 50 20 Balance 2690 1788.8 597 0 Meds/Results Medications: Active Medications Generic Name Dose Route Start Last Admin Trade Name Freq PRN Reason Stop Dose Admin Acetaminophen 650 mg 04/04/24 12:10 Acetaminophen 325 Mg Tablet PO Q4H PRN Mild Pain (1-3) or Fever Artificial Tears 1 drop 04/04/24 20:15 Artificial Tears Ophth Soln 15 Ml Bottle EACH EYE Q4H PRN Dry Eye(S) Bupropion HCl 100 mg 04/05/24 09:00 04/08/24 08:52 Bupropion Hcl 100 Mg Tablet PO 100 mg BID JUAN PABLO Administration Calcitriol 0.25 mcg 04/06/24 09:00 04/08/24 08:52 Calcitriol 0.25 Mcg Capsule BY MOUTH 0.25 mcg [id number] JUAN PABLO Administration Carvedilol 12.5 mg 04/04/24 21:00 04/05/24 20:43 Carvedilol 12.5 Mg Tablet PO Not Given Q12HR [facility] Dextrose 12.5 gm 04/04/24 21:51 Dextrose 50% 25 Gm/50 Ml Syringe IV PUSH PRN PRN Hypoglycemia Protocol Escitalopram Oxalate 10 mg 04/08/24 09:00 04/08/24 08:52 Escitalopram Oxalate 10 Mg Tablet PO 10 mg DAILY JUAN PABLO Administration Famotidine 20 mg 04/08/24 21:00 Famotidine 20 Mg Tablet PO Q24H [facility] Gabapentin 200 mg 04/08/24 14:00 Gabapentin 100 Mg Capsule PO Q8HR JUAN PABLO Glucagon 1 mg 04/04/24 21:51 Glucagon For Inj 1 Mg Vial IM PRN PRN Hypoglycemia Protocol Glucose 15 gm 04/04/24 21:51 Glucose Oral Gel 15 Gm Of Glucse In 37.5 Gm Tube PO PRN PRN Hypoglycemia Protocol Hydromorphone HCl 0.5 mg 04/04/24 12:10 Hydromorphone Hcl Inj (*Crx) 1 Mg/Ml Syr IV PUSH Q4H PRN Pain Rated 7-10 Dextrose 1,000 mls @ 100 mls/hr 04/04/24 21:51 Dextrose 5% 1,000 Ml IVPB PRN PRN Hypoglycemia Protocol Latanoprost 1 drop 04/05/24 09:00 04/08/24 08:52 Latanoprost 0.005% Op Soln 2.5 Ml Btl EACH EYE 1 drop DAILY JUAN PABLO Administration Loratadine 10 mg 04/04/24 20:25 Loratadine 10 Mg Tablet PO QAM PRN allergy symptoms Ondansetron HCl 4 mg 04/04/24 12:10 Ondansetron Inj 4 Mg/2 Ml Vial IV PUSH Q4H PRN Nausea Pravastatin Sodium 40 mg 04/05/24 09:00 04/08/24 08:51 Pravastatin Sodium 20 Mg Tablet PO 40 mg DAILY JUAN PABLO Administration Quetiapine Fumarate 100 mg 04/04/24 21:00 04/07/24 21:06 Quetiapine Fumarate 100 Mg Tablet PO 100 mg HS JUAN PABLO Administration Sodium Bicarbonate 1,300 mg 04/08/24 09:00 04/08/24 08:52 Sodium Bicarbonate Tab 650 Mg Tablet PO 1,300 mg BID JUAN PABLO Administration Sodium Chloride 1 gm 04/05/24 09:00 04/07/24 08:44 Sodium Chloride 1 Gm Tablet PO 1 gm QAM JUAN PABLO Administration Vitamin D 2,000 units 04/05/24 09:00 04/08/24 08:52 Cholecalciferol 1,000 Units Tablet PO 2,000 units BID JUAN PABLO Administration Radiology Results: ITS Impressions Renal Ultrasound 04/06/24 11:46 Impression: Unremarkable ultrasound of the kidneys. Cholelithiasis and gallbladder sludge incidentally noted. Abdomen/Pelvis CT 04/06/24 19:19 IMPRESSION: Left basilar infiltrate with a small right-sided pleural effusion, an interval change from 04/04/2023. Marked delayed excretion within the bilateral kidneys, consistent with patient's history. Fluid distention of the stomach, extending to the proximal jejunum consistent with patient's history Mural thickening within the rectosigmoid colon with multiple diverticula and trace surrounding inflammatory change, similar in appearance to examination dated 04/04/2024. No drainable fluid collections or gross perforation is noted. Interval development of significant anasarca and retroperitoneal inflammatory change. Chest X-Ray 04/08/24 08:12 IMPRESSION: Left basilar atelectasis versus pneumonia seen medially. Labs Labs: Laboratory Results - last 24 hr 04/07/24 04/08/24 04/08/24 12:48 00:02 05:18 WBC 8.0 RBC 2.51 L Hgb 7.9 L Hct 25.3 L MCV 100.8 H MCH 31.5 MCHC 31.2 L RDW 14.4 Plt Count 196 MPV 11.1 H Sodium 125 L Potassium 4.8 Chloride 102 Carbon Dioxide 13 L Anion Gap 10 BUN 45 H Creatinine 6.35 H Estim Creat Clear Calc Not Reportable Estimated GFR 6 L Glucose 100 POC Capillary Glucose 179 H 170 H Calcium 7.9 L Magnesium 2.3 Total Bilirubin 0.3 AST 11 L ALT 6 Alkaline Phosphatase 61 Total Protein 5.0 L Albumin 2.6 L Procalcitonin 0.4 Hep Bs Antigen Negative Hep Bs Antibody Negative 04/08/24 04/08/24 07:42 11:51 WBC RBC Hgb Hct MCV MCH MCHC RDW Plt Count MPV Sodium Potassium Chloride Carbon Dioxide Anion Gap BUN Creatinine Estim Creat Clear Calc Estimated GFR Glucose POC Capillary Glucose 119 H 139 H Calcium Magnesium Total Bilirubin AST ALT Alkaline Phosphatase Total Protein Albumin Procalcitonin Hep Bs Antigen Hep Bs Antibody Imaging Radiologist's impression: EXAMINATION: MR brain/brain stem wo con DATE: 04/08/2024 17:03 INDICATION: Slurred speech. TECHNIQUE: Magnetic resonance imaging (MRI) of the brain and brainstem was performed without intravenous contrast. COMPARISON: None. FINDINGS: There are scattered areas of nonspecific increased T2-weighted signal intensity in the cerebral white matter, which is within normal limits for the patient's age. There is no intracranial hemorrhage, acute infarction, or abnormal intracranial mass lesion. The ventricles are normal in size. There is complete opacification of left maxillary sinus. There are likely changes of ocular lens replacement surgeries. The mastoid air cells are normal. IMPRESSION: 1. Normal aging brain. Reviewed, dictated and finalized at location A. [facility] ABG ABG results: pH 7.147 pCO2 37, PO2 797 HC03 12 1 base excess -15.7 Attestation: I personally reviewed and interpreted this ABG as follows: Interpretation: metabolic acidosis with incomplete respiratory compensation Pulse Oximetry SpO2 results: 94-95% room air Attestation: I personally reviewed and interpreted this pulse oximetry as follows: Interpretation: no need for supplemental oxygenation at this time Quality VTE Prophylaxis VTE prophylaxis: mechanical ordered Due to a high probability of clinically significant, life threatening deterioration, the patient required my highest level of preparedness to intervene emergently and I personally spent this critical care time directly and personally managing the patient. This critical care time included obtaining a history; examining the patient; pulse oximetry; ordering and review of studies; arranging urgent treatment with development of a management plan; evaluation of patient's response to treatment; frequent reassessment; and discussions with other providers. It was exclusive of separately billable procedures and treating other patients and teaching time. Please see Assessment and Plan section and the rest of the note for further information on patient assessment and treatment. 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 Hospitalist MIPS Advance Care Plan I have confirmed that the patient's Advanced Care Plan is present, code status is documented, or surrogate decision maker is listed in patient medical record.: Yes Medication Reconciliation I have utilized all available resources to obtain, update and review the patients current medications (includes all prescriptions, OTC, herbals, cannabis, and nutritional supplements).: Yes
[2024-04-08] MEDS: GABAPENTIN 100 MG CAPSULE 200 MG PO (13:08)
--- NOTE | 2024-04-08 13:30 | P.PNNP_ITS ---
Progress Note: A&P Assessment and Plan (1) JAE (acute kidney injury): Code(s): N17.9 - Acute kidney failure, unspecified Status: Acute Assessment and Plan: * as noted since admission * suspect multifactorial etiology: * prerenal factors * relative hypotension * contrast exposure (CT with contrast on 04/04/24) * LENNIE-I use prior to admission * relative anemia * other (?) * evaluation to date noted: * urine electrolytes prerenal * urine eosinophils negative * UA without evidence of infection * CPK normal * renal utrasound okay * repeat CT of A/P still notes contrast present in kidneys * concerning that she is not making much urine * now having issues with hyponatremia, worsening metabolic acidosis and possible uremic symptoms... * I think we need to consider dialysis... * follow trend of repeat labs and UOP (2) Chronic kidney disease, stage IV (severe): Code(s): N18.4 - Chronic kidney disease, stage 4 (severe) Status: Acute Assessment and Plan: * baseline creatinine runs ~ 1.8 - 2.3mg/dl * due hypertension, diabetes, and age-related change with contributions with previous use of NSAIDs (3) Metabolic acidosis: Code(s): E87.20 - Acidosis, unspecified Status: Acute Assessment and Plan: * due to worsening JAE/ARF * attempting to compensate with sodium bicarb (oral and IV) * follow trend (4) Hyponatremia: Code(s): E87.1 - Hypo-osmolality and hyponatremia Status: Acute Assessment and Plan: * chronic issues at baseline * likely worsened by JAE/ARF * given JAE, sodium tabs on hold * follow trend of sodum level (5) GI bleed: Code(s): K92.2 - Gastrointestinal hemorrhage, unspecified Status: Acute Assessment and Plan: * 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 * known history of Barrettt's esophagus * Hgb dropped since admission * GI following: * s/p EGD - no active bleeding with Ferrell's esophagus * on PPI * follow trend of H/H * PRBC transfusion per protocol (6) Colitis: Code(s): K52.9 - Noninfective gastroenteritis and colitis, unspecified Status: Acute Assessment and Plan: * as noted by admission CT of A/P * GI recommendations noted * on antibiotics * advance diet as tolerated (7) Chronic anemia: Code(s): D64.9 - Anemia, unspecified Status: Chronic Assessment and Plan: * probably related to CKD * acute worsening noted since admission * complicated by #5 * consider SANDRA * follow H/H (8) Hypertension: Code(s): I10 - Essential (primary) hypertension Status: Acute Assessment and Plan: * BP on the soft side since admission * lisinopril on hold due to #1 * follow trend of hemodynamics Long and extensive discussion (> 20 minutes) with patient and with her brother at bedside regarding her worsening renal dysfunction coupled with anuria, hyponatremia, worsening metabolic acidosis and possible uremia. I worry she may need [facility]/dialysis at a minimum to treat her possible uremia but this would also help improve her acidosis and further stabilize her electrolytes as well. She has no evidence of volume overload but this may also be come an issue given her poor urine output as well. I discussed the procedure of dialysis, the pros, cons, risks, benefits, and the need for a dialysis catheter placement. She is willing to proceed. Hopefully, dialysis will be temporary but it is possible it could be group home...will consult Surgery for placement of temporary HD catheter for acute dialysis. Will continue to follow. Subjective Date/time seen: 04/08/24 13:30 Interval history: Follow-up for acute kidney injury/acute renal failure on chronic kidney disease. Renal function/creatinine continues to deteriorate/worsen in association with anuria; patient reports increasing fatigue, poor appetite, and feelings of confusion/forgetfulness as well; overall, she states that she just does not feel well. -- no apparent distress noted when seen and she did recognize me this afternoon. Exam Narrative: General: elderly but WD/WN female in NAD but slightly confused Heart: normal S1 and S2; no rub Lungs: clear to auscultation Abdomen: soft, nontender, nondistended, positive bowel sounds Extremities: no cyanosis or clubbing; no edema Skin: no rash Objective Data Vital Signs Vital Signs: Vital Signs Temp Pulse Resp BP Pulse Ox O2 Del Method 04/08/24 13:00 96.6 F L 87 14 100/60 94 04/08/24 12:00 81 04/08/24 08:29 94 Room Air 04/08/24 08:00 878 H 04/08/24 08:00 97.6 F 86 16 104/82 97 04/08/24 08:00 Room Air 04/08/24 06:00 98.4 F 88 16 107/94 H 93 04/08/24 04:00 71 04/08/24 00:00 84 04/07/24 21:09 97.7 F 77 14 119/48 L 97 04/07/24 20:00 77 04/07/24 20:00 Room Air Intake/Output Intake/Output: Intake & Output 04/05/24 04/06/24 04/07/24 04/08/24 23:59 23:59 23:59 23:59 Intake Total 2690 1788.8 647 317 Output Total 50 20 Balance 2690 1788.8 597 297 Meds/Results Medications: Active Medications Generic Name Dose Route Start Last Admin Trade Name Freq PRN Reason Stop Dose Admin Acetaminophen 650 mg 04/04/24 12:10 Acetaminophen 325 Mg Tablet PO Q4H PRN Mild Pain (1-3) or Fever Artificial Tears 1 drop 04/04/24 20:15 Artificial Tears Ophth Soln 15 Ml Bottle EACH EYE Q4H PRN Dry Eye(S) Bupropion HCl 100 mg 04/05/24 09:00 04/08/24 08:52 Bupropion Hcl 100 Mg Tablet PO 100 mg BID JUAN PABLO Administration Calcitriol 0.25 mcg 04/06/24 09:00 04/08/24 08:52 Calcitriol 0.25 Mcg Capsule BY MOUTH 0.25 mcg [id number] JUAN PABLO Administration Carvedilol 12.5 mg 04/04/24 21:00 04/05/24 20:43 Carvedilol 12.5 Mg Tablet PO Not Given Q12HR JUAN PABLO Dextrose 12.5 gm 04/04/24 21:51 Dextrose 50% 25 Gm/50 Ml Syringe IV PUSH PRN PRN Hypoglycemia Protocol Escitalopram Oxalate 10 mg 04/08/24 09:00 04/08/24 08:52 Escitalopram Oxalate 10 Mg Tablet PO 10 mg DAILY JUAN PABLO Administration Famotidine 20 mg 04/08/24 21:00 Famotidine 20 Mg Tablet PO Q24H JUAN PABLO Glucagon 1 mg 04/04/24 21:51 Glucagon For Inj 1 Mg Vial IM PRN PRN Hypoglycemia Protocol Glucose 15 gm 04/04/24 21:51 Glucose Oral Gel 15 Gm Of Glucse In 37.5 Gm Tube PO PRN PRN Hypoglycemia Protocol Hydromorphone HCl 0.5 mg 04/04/24 12:10 Hydromorphone Hcl Inj (*Crx) 1 Mg/Ml Syr IV PUSH Q4H PRN Pain Rated 7-10 Dextrose 1,000 mls @ 100 mls/hr 04/04/24 21:51 Dextrose 5% 1,000 Ml IVPB PRN PRN Hypoglycemia Protocol Latanoprost 1 drop 04/05/24 09:00 04/08/24 08:52 Latanoprost 0.005% Op Soln 2.5 Ml Btl EACH EYE 1 drop DAILY JUAN PABLO Administration Loratadine 10 mg 04/04/24 20:25 Loratadine 10 Mg Tablet PO QAM PRN allergy symptoms Ondansetron HCl 4 mg 04/04/24 12:10 Ondansetron Inj 4 Mg/2 Ml Vial IV PUSH Q4H PRN Nausea Pravastatin Sodium 40 mg 04/05/24 09:00 04/08/24 08:51 Pravastatin Sodium 20 Mg Tablet PO 40 mg DAILY JAUN PABLO Administration Quetiapine Fumarate 100 mg 04/04/24 21:00 04/07/24 21:06 Quetiapine Fumarate 100 Mg Tablet PO 100 mg HS JUAN PABLO Administration Sodium Bicarbonate 1,300 mg 04/08/24 09:00 04/08/24 08:52 Sodium Bicarbonate Tab 650 Mg Tablet PO 1,300 mg BID JUAN PABLO Administration Sodium Chloride 1 gm 04/05/24 09:00 04/07/24 08:44 Sodium Chloride 1 Gm Tablet PO 1 gm QAM JUAN PABLO Administration Vitamin D 2,000 units 04/05/24 09:00 04/08/24 08:52 Cholecalciferol 1,000 Units Tablet PO 2,000 units BID JUAN PABLO Administration Radiology Results: ITS Impressions Renal Ultrasound 04/06/24 11:46 Impression: Unremarkable ultrasound of the kidneys. Cholelithiasis and gallbladder sludge incidentally noted. Abdomen/Pelvis CT 04/06/24 19:19 IMPRESSION: Left basilar infiltrate with a small right-sided pleural effusion, an interval change from 04/04/2023. Marked delayed excretion within the bilateral kidneys, consistent with patient's history. Fluid distention of the stomach, extending to the proximal jejunum consistent with patient's history Mural thickening within the rectosigmoid colon with multiple diverticula and trace surrounding inflammatory change, similar in appearance to examination dated 04/04/2024. No drainable fluid collections or gross perforation is noted. Interval development of significant anasarca and retroperitoneal inflammatory change. Chest X-Ray 04/08/24 08:12 IMPRESSION: Left basilar atelectasis versus pneumonia seen medially. Labs Labs: Vital Signs Temp Pulse Resp BP Pulse Ox O2 Del Method 04/08/24 13:00 96.6 F L 87 14 100/60 94 04/08/24 12:00 81 04/08/24 08:29 94 Room Air 04/08/24 08:00 878 H 04/08/24 08:00 97.6 F 86 16 104/82 97 04/08/24 08:00 Room Air 04/08/24 06:00 98.4 F 88 16 107/94 H 93 04/08/24 04:00 71 04/08/24 00:00 84 04/07/24 21:09 97.7 F 77 14 119/48 L 97 04/07/24 20:00 77 04/07/24 20:00 Room Air
[2024-04-08 13:59] LABS: Alveolar/Arterial O2 Gradient 27.3 mmHg; Base Excess ABG -15.7 mEq/l (+/-2.0); Fractional Inspired Oxygen 21 %; HCO3 ABG 12.1 mEq/l (22.0-26.0); Oxygen Content ABG 13.2 %vol (16.0-22.0); Oxygen Saturation ABG 92.2 % (95.0-100.0); Oxyhemoglobin 94.8 % THb (90.0-100.0); PCO2 ABG 35.7 mmHg (35.0-45.0); PO2 ABG 79.7 mmHg (80.0-100.0); Total Hemoglobin 9.8 g/dL (12.0-18.0)
[2024-04-08 14:00] LABS: Hemoglobin 8.9 g/dL (12.0-15.0); Mean Corpuscular HGB Conc 31.8 g/dl (32-36); Mean Corpuscular Hemoglobin 31.7 pg (26-34); Mean Corpuscular Volume 99.6 fl (80-100); Mean Platelet Volume 9.8 fl (7.4-10.4); Platelet Count Result 218 k/mm3 (150-375); Red Blood Count 2.81 M/mm3 (4.2-5.4); Red Cell Distribution Width 14.5 % (11.5-14.5); White Blood Count 8.9 K/mm3 (4.5-10.0)
[2024-04-08 14:00] LABS: Modified Allen's Test Pass; Site Drawn LEFT RADIAL; pH ABG 7.147 (7.350-7.450)
[2024-04-08 14:01] LABS: Device ROOM AIR
[2024-04-08 14:11] LABS: Ammonia < 9 umol/L (9-30)
--- NOTE | 2024-04-08 14:13 | WPDGIPROGNO ---
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 CT scan studies demonstrate colonic wall thickening in a region with diverticulosis. Antibiotics were discontinued yesterday due to the absence of clinical findings consistent with colitis. Intravenous pantoprazole also discontinued to avoid risk of C difficile. However, she is at increased risk for ischemic colitis due to her diabetes and other comorbidities. Therefore, she should be closely monitored for the development of hematochezia, which is currently absent. Her primary medical concern at this time is worsening [id number] kidney injury, for which she is under the care of nephrology. Since there are no active gastrointestinal issues requiring my direct follow-up at this time, I will sign off. I will gladly re-evaluate the patient if any new concerns arise. (2) Diabetes mellitus with chronic kidney disease: Code(s): E11.22 - Type 2 diabetes mellitus with diabetic chronic kidney disease Status: Acute Subjective Date/time seen: 04/08/24 14:13 Interval history: Patient somewhat obtunded, looks more compromised than yesterday. Objective Data Vital Signs Vital Signs: Vital Signs - 24 hr 04/07/24 16:00 04/07/24 20:00 04/07/24 20:00 Temperature Pulse Rate 76 77 Respiratory Rate Blood Pressure Pulse Oximetry Oxygen Delivery Room Air 04/07/24 21:09 04/08/24 00:00 04/08/24 04:00 Temperature 97.7 F Pulse Rate 77 84 71 Respiratory Rate 14 Blood Pressure 119/48 L Pulse Oximetry 97 Oxygen Delivery 04/08/24 06:00 04/08/24 08:00 04/08/24 08:00 Temperature 98.4 F 97.6 F Pulse Rate 88 86 Respiratory Rate 16 16 Blood Pressure 107/94 H 104/82 Pulse Oximetry 93 97 Oxygen Delivery Room Air 04/08/24 08:29 Temperature Pulse Rate Respiratory Rate Blood Pressure Pulse Oximetry 94 Oxygen Delivery Room Air Intake/Output Intake/Output: Intake & Output 04/05/24 04/06/24 04/07/24 04/08/24 23:59 23:59 23:59 23:59 Intake Total 2690 1788.8 647 317 Output Total 50 20 Balance 2690 1788.8 597 297 Meds/Results Medications: Active Medications Generic Name Dose Route Start Last Admin Trade Name Freq PRN Reason Stop Dose Admin Acetaminophen 650 mg 04/04/24 12:10 Acetaminophen 325 Mg Tablet PO Q4H PRN Mild Pain (1-3) or Fever Artificial Tears 1 drop 04/04/24 20:15 Artificial Tears Ophth Soln 15 Ml Bottle EACH EYE Q4H PRN Dry Eye(S) Bupropion HCl 100 mg 04/05/24 09:00 04/08/24 08:52 Bupropion Hcl 100 Mg Tablet PO 100 mg BID JUAN PABLO Administration Calcitriol 0.25 mcg 04/06/24 09:00 04/08/24 08:52 Calcitriol 0.25 Mcg Capsule BY MOUTH 0.25 mcg [id number] JUAN PABLO Administration Carvedilol 12.5 mg 04/04/24 21:00 04/05/24 20:43 Carvedilol 12.5 Mg Tablet PO Not Given Q12HR JUAN PABLO Dextrose 12.5 gm 04/04/24 21:51 Dextrose 50% 25 Gm/50 Ml Syringe IV PUSH PRN PRN Hypoglycemia Protocol Escitalopram Oxalate 10 mg 04/08/24 09:00 04/08/24 08:52 Escitalopram Oxalate 10 Mg Tablet PO 10 mg DAILY JUAN PABLO Administration Famotidine 20 mg 04/08/24 21:00 Famotidine 20 Mg Tablet PO Q24H JUAN PABLO Glucagon 1 mg 04/04/24 21:51 Glucagon For Inj 1 Mg Vial IM PRN PRN Hypoglycemia Protocol Glucose 15 gm 04/04/24 21:51 Glucose Oral Gel 15 Gm Of Glucse In 37.5 Gm Tube PO PRN PRN Hypoglycemia Protocol Hydromorphone HCl 0.5 mg 04/04/24 12:10 Hydromorphone Hcl Inj (*Crx) 1 Mg/Ml Syr IV PUSH Q4H PRN Pain Rated 7-10 Dextrose 1,000 mls @ 100 mls/hr 04/04/24 21:51 Dextrose 5% 1,000 Ml IVPB PRN PRN Hypoglycemia Protocol Latanoprost 1 drop 04/05/24 09:00 04/08/24 08:52 Latanoprost 0.005% Op Soln 2.5 Ml Btl EACH EYE 1 drop DAILY JUAN PABLO Administration Loratadine 10 mg 04/04/24 20:25 Loratadine 10 Mg Tablet PO QAM PRN allergy symptoms Ondansetron HCl 4 mg 04/04/24 12:10 Ondansetron Inj 4 Mg/2 Ml Vial IV PUSH Q4H PRN Nausea Pravastatin Sodium 40 mg 04/05/24 09:00 04/08/24 08:51 Pravastatin Sodium 20 Mg Tablet PO 40 mg DAILY JUAN PABLO Administration Quetiapine Fumarate 100 mg 04/04/24 21:00 04/07/24 21:06 Quetiapine Fumarate 100 Mg Tablet PO 100 mg HS JUAN PABLO Administration Sodium Bicarbonate 1,300 mg 04/08/24 09:00 04/08/24 08:52 Sodium Bicarbonate Tab 650 Mg Tablet PO 1,300 mg BID JUAN PABLO Administration Sodium Chloride 1 gm 04/05/24 09:00 04/07/24 08:44 Sodium Chloride 1 Gm Tablet PO 1 gm QAM JUAN PABLO Administration Vitamin D 2,000 units 04/05/24 09:00 04/08/24 08:52 Cholecalciferol 1,000 Units Tablet PO 2,000 units BID JUAN PABLO Administration Radiology Results: ITS Impressions Renal Ultrasound 04/06/24 11:46 Impression: Unremarkable ultrasound of the kidneys. Cholelithiasis and gallbladder sludge incidentally noted. Abdomen/Pelvis CT 04/06/24 19:19 IMPRESSION: Left basilar infiltrate with a small right-sided pleural effusion, an interval change from 04/04/2023. Marked delayed excretion within the bilateral kidneys, consistent with patient's history. Fluid distention of the stomach, extending to the proximal jejunum consistent with patient's history Mural thickening within the rectosigmoid colon with multiple diverticula and trace surrounding inflammatory change, similar in appearance to examination dated 04/04/2024. No drainable fluid collections or gross perforation is noted. Interval development of significant anasarca and retroperitoneal inflammatory change. Chest X-Ray 04/08/24 08:12 IMPRESSION: Left basilar atelectasis versus pneumonia seen medially. Labs Labs: Laboratory Results - last 24 hr 04/08/24 04/08/24 04/08/24 00:02 05:18 07:42 WBC 8.0 RBC 2.51 L Hgb 7.9 L Hct 25.3 L MCV 100.8 H MCH 31.5 MCHC 31.2 L RDW 14.4 Plt Count 196 MPV 11.1 H Puncture Site ABG pH ABG pCO2 ABG pO2 ABG PO2/FiO2 Ratio ABG HCO3 ABG O2 Saturation ABG O2 Content ABG Base Excess A-a Gradient Oxyhemoglobin Total Hemoglobin O2 Delivery Device O2 Liters/Min FiO2 Sodium 125 L Potassium 4.8 Chloride 102 Carbon Dioxide 13 L Anion Gap 10 BUN 45 H Creatinine 6.35 H Estim Creat Clear Calc Not Reportable Estimated GFR 6 L Glucose 100 POC Capillary Glucose 170 H 119 H Calcium 7.9 L Magnesium 2.3 Total Bilirubin 0.3 AST 11 L ALT 6 Alkaline Phosphatase 61 Ammonia Total Protein 5.0 L Albumin 2.6 L Procalcitonin 0.4 Hep Bs Antigen Negative Hep Bs Antibody Negative 04/08/24 04/08/24 04/08/24 11:51 13:45 13:50 WBC RBC Hgb Hct MCV MCH MCHC RDW Plt Count MPV Puncture Site Left radial ABG pH 7.147 L* ABG pCO2 35.7 ABG pO2 79.7 L ABG PO2/FiO2 Ratio 3.80 ABG HCO3 12.1 L ABG O2 Saturation 92.2 L ABG O2 Content 13.2 L ABG Base Excess -15.7 A-a Gradient 27.3 Oxyhemoglobin 94.8 Total Hemoglobin 9.8 L O2 Delivery Device Room air O2 Liters/Min Not Reportable FiO2 21 Sodium Potassium Chloride Carbon Dioxide Anion Gap BUN Creatinine Estim Creat Clear Calc Estimated GFR Glucose POC Capillary Glucose 139 H Calcium Magnesium Cancelled Total Bilirubin AST ALT Alkaline Phosphatase Ammonia < 9 L Total Protein Albumin Procalcitonin Hep Bs Antigen Hep Bs Antibody
[2024-04-08 14:15] LABS: Alanine Aminotransferase 7 U/L (6-35); Alkaline Phosphatase 64 U/L (38-126); Anion Gap 11 mmol/L (4-12); Aspartate Amino Transferase 13 U/L (14-36); Bilirubin,Total 0.3 mg/dL (0.2-1.3); Blood Urea Nitrogen 47 mg/dL (7-17); Calcium 8.1 mg/dL (8.4-10.2); Carbon Dioxide 12 mmol/L (22-30); Chloride 100 mmol/L (98-107); Estimated Glomerular Filt Rate 6; Glucose 156 mg/dL (65-110); Magnesium 2.3 mg/dL (1.6-2.3); Sodium 123 mmol/L (137-145)
--- NOTE | 2024-04-08 14:27 | PC.NURSE ---
Spoke with grandson per patients request. Updated on pts medical condition.
[2024-04-08 14:42] LABS: Band Neutrophils Percent 3 % (0-6); Eosinophils Absolute Manual 0.17 K/mm3 (0.02-0.50); Eosinophils Percent Manual 2 % (0-4); Lymphocytes Absolute Manual 0.35 K/mm3 (1.1-4.5); Monocytes Absolute Manual 0.35 K/mm3 (0.1-0.90); Monocytes Percent Manual 4 % (3-9); Neutrophils Absolute Manual 8.01 K/mm3 (1.7-7.2); Neutrophils Percent Manual 87 % (46-73); Total Cells Counted 100
[2024-04-08 14:43] LABS: Hypochromasia 1+; Platelet Estimate Adequate (Adequate); Schistocytes None Seen
[2024-04-08 15:04] LABS: Lactic Acid Reflex 0.9 mmol/L (0.7-2.0)
[2024-04-08 15:12] LABS: Beta-Hydroxybutyrate/Acetoacetate 0.25 mmol/L (0.02-0.27)
[2024-04-08] MEDS: ACETAMINOPHEN 325 MG TABLET 650 MG PO (17:40)
[2024-04-08] MEDS: ALBUMIN HUMAN 25% 25 GM/100 ML 100 ML IVPB (20:08)
[2024-04-08] MEDS: SODIUM BICARBONATE 8.4% 50 MEQ/50 ML SYRINGE 100 MEQ IV PUSH (20:09)
[2024-04-08] MEDS: FAMOTIDINE 20 MG TABLET PO (20:10)
[2024-04-09] VITALS (29 sets, daily range): BP systolic 109–163; BP diastolic 36–102; PULSE 75–90; RESP 12–24; TEMP 35.8–37.4; O2SAT 93–96
[2024-04-09 00:59] LABS: Glucose Point of Care 115 mg/dl (65-105)
[2024-04-09 04:57] LABS: Albumin Level 3.4 g/dL (3.5-5.1); Alkaline Phosphatase 48 U/L (38-126); Anion Gap 14 mmol/L (4-12); Aspartate Amino Transferase 15 U/L (14-36); Bilirubin,Total 0.6 mg/dL (0.2-1.3); Blood Urea Nitrogen 49 mg/dL (7-17); Calcium 7.7 mg/dL (8.4-10.2); Carbon Dioxide 12 mmol/L (22-30); Chloride 99 mmol/L (98-107); Estimated Glomerular Filt Rate 6; Glucose 103 mg/dL (65-110); Magnesium 2.3 mg/dL (1.6-2.3); Potassium 5.1 mmol/L (3.4-5.0); Sodium 125 mmol/L (137-145)
[2024-04-09 04:58] LABS: Alanine Aminotransferase < 6 U/L (6-35)
[2024-04-09 05:31] LABS: Hematocrit 25.9 % (37.0-47.0); Hemoglobin 8.4 g/dL (12.0-15.0); Mean Corpuscular HGB Conc 32.4 g/dl (32-36); Mean Corpuscular Hemoglobin 31.8 pg (26-34); Mean Corpuscular Volume 98.1 fl (80-100); Mean Platelet Volume 10.4 fl (7.4-10.4); Platelet Count Result 225 k/mm3 (150-375); Red Blood Count 2.64 M/mm3 (4.2-5.4); Red Cell Distribution Width 14.3 % (11.5-14.5); White Blood Count 9.9 K/mm3 (4.5-10.0)
[2024-04-09 06:48] LABS: Hepatitis B Core Ab Total NON-REACTIVE (NON-REACTIVE)
--- NOTE | 2024-04-09 10:03 | P.CONGS_ITS ---
Assessment and Plan Assessment and plan (1) JAE (acute kidney injury): Code(s): N17.9 - Acute kidney failure, unspecified Status: Acute Assessment and Plan: * Patient presented with acute on chronic kidney disease. Her renal function has progressively gotten worse through this admission and she has minimal urine output. She has worsening metabolic acidosis, hyponatremia, and possible uremic symptoms. Nephrology is now requesting placement of a temporary hemodialysis catheter to initiate hemodialysis. Description of the procedure, risks, benefits, alternatives, and expected outcomes were discussed with the patient in detail. She agrees to proceed. Will plan to proceed with bedside placement of Cam catheter today by Dr. Higginbotham. (2) Chronic kidney disease, stage IV (severe): Code(s): N18.4 - Chronic kidney disease, stage 4 (severe) Status: Acute (3) Metabolic acidosis: Code(s): E87.20 - Acidosis, unspecified Status: Acute (4) Chronic anemia: Code(s): D64.9 - Anemia, unspecified Status: Chronic Assessment and Plan: * Hemoglobin stable. No signs of active bleeding. (5) Colitis: Code(s): K52.9 - Noninfective gastroenteritis and colitis, unspecified Status: Acute Assessment and Plan: * GI following and antibiotics were stopped. (6) GI bleed: Code(s): K92.2 - Gastrointestinal hemorrhage, unspecified Status: Acute Assessment and Plan: * Presented with report of hematemesis and rectal bleeding. GI following and EGD negative for active bleeding. No signs of active bleeding at this time. Hgb stable. (7) Hypertension: Code(s): I10 - Essential (primary) hypertension Status: Acute (8) Diabetes mellitus with chronic kidney disease: Code(s): E11.22 - Type 2 diabetes mellitus with diabetic chronic kidney disease Status: Acute (9) Hyponatremia: Code(s): E87.1 - Hypo-osmolality and hyponatremia Status: Acute Plan I have discussed the patient's case and plan of care with Dr. Higginbotham. History of Present Illness Consult details Consult date: 04/09/24 Reason for consult: other (Placement of temporary hemodialysis catheter) Requesting physician: Aubrey Reyna MD Narrative: This is a 74-year-old woman with PMH of chronic kidney disease, Ferrell esophagus, type 2 diabetes mellitus, hypertension, hyperlipidemia, and depression, who we have been asked to see in surgical consultation for placement of a temporary hemodialysis catheter. She came into the ED on 04/04/2024 for hematemesis and rectal bleeding. She was admitted and treated for possible GI bleed, colitis, and acute on chronic kidney disease. She had an EGD that showed Ferrell's esophagus, minimal gastritis, and hiatal hernia, but no active bleeding. She has chronic anemia with her hemoglobin remaining stable around 8- 8.9. Her renal function has progressively gotten worse over the past few days and she has minimal urine output. She additionally has had hyponatremia with her sodium is low as 123 yesterday. Nephrology is following and is now wanting to initiate hemodialysis. She also had a brain MRI yesterday due to slurred speech, which was negative. She was transferred to IMU yesterday for hypotension and progressive acute kidney injury, and is seen in IMU now for surgical consultation. She denies ever having dialysis in the past. Review of Systems 2 Review of Systems: All systems reviewed & are unremarkable except as noted in HPI and below PMFSH Past Medical History Medical History Diabetes type 2, controlled Restless leg syndrome Chronic kidney disease, stage IV (severe) Hyperlipidemia Vitamin D deficiency Raynaud's disease Anemia Depression Degenerative disc disease Cervical neck fusion in 2006 Arthritis Musculoskeletal disorder Bilateral rotator cuff surgery, bilateral carpal tunnel, arthritis, left thumb subluxed Ferrell's esophagus Pneumonia Hypertension Heart murmur Migraines Last migraine 2006 Glaucoma Cataracts, bilateral Surgical History Surgical History History of cervical spinal surgery History of orthopedic surgery Lower back disc removal 1986, repair of spinal leak 1987 History of appendectomy History of tonsillectomy Family History Family History Sibling Family history of thyroid disease Family history of obesity Family history of osteoporosis Family history of migraine headaches Hypertension Family history of elevated blood lipids Family history of alcoholism Family history of diabetes mellitus in first degree relative Family history of coronary artery disease Father Family history of osteoporosis Family history of lung cancer Mother Family history of osteoarthritis Family history of malignant melanoma Family history of atrial fibrillation Social History Social History Social History: Surrogate medical decision maker: Code status: Full code. Smoking status: Never smoker Second hand tobacco smoke exposure: Yes (father and ) Alcohol intake: never Substance use: never Substance use type: other Other substance usage details: cbd gummies without thc Do You Feel Safe in your Home?: Yes Lack of Transportation: No Lack of Food: Never True Current Housing: I Have Housing Concerned About Future Housing: No Difficulty Paying Gas/Electric Bills: No Difficulty Paying for Meds: No Currently Unemployed: No Education: Associate Degree Difficulty w/ Childcare or Family Care: No Living arrangements: with family Spiritual care concerns: Yes (faith) Meds Home Medications and Allergies Home Medications ?Medication ?Instructions ?Recorded ?Confirmed ?Type bupropion HCl 100 mg tablet 100 mg PO BID 12/24/20 04/04/24 History cholecalciferol (vitamin D3) 50 50 mcg PO BID 12/24/20 04/04/24 History mcg (2,000 unit) tablet (Vitamin D3) latanoprost 0.005 % eye drops 1 drp EACH EYE DAILY 12/24/20 04/04/24 History (Xalatan) lisinopril 20 mg tablet (Zestril) 20 mg PO DAILY 12/24/20 04/04/24 History meclizine 25 mg tablet 25 mg PO TID PRN dizziness #14 tabs 12/24/20 04/04/24 Rx pantoprazole 40 mg tablet,delayed 40 mg PO QAM 12/24/20 04/04/24 History release (Protonix) pravastatin 40 mg tablet 40 mg PO DAILY 12/24/20 04/04/24 History acetaminophen 325 mg tablet (Mapap 650 mg (2 x 325 mg) PO Q6H PRN 06/15/22 04/04/24 Rx (acetaminophen)) Mild Pain (1-3) Or Fever #30 tabs carvedilol 12.5 mg tablet (Coreg) 12.5 mg PO Q12HR #60 tabs 06/15/22 04/04/24 Rx escitalopram oxalate 10 mg tablet 20 mg (2 x 10 mg) PO DAILY #30 tabs 06/15/22 04/04/24 Rx famotidine 20 mg tablet 20 mg PO Q12HR #30 tabs 06/15/22 04/04/24 Rx gabapentin 300 mg capsule 300 mg PO TID #90 caps 06/15/22 04/04/24 Rx (Neurontin) peg [id number] 1 1 drp EACH EYE Q4H PRN Dry Eye(S) 06/15/22 04/04/24 Rx %-0.2 %-0.2 % eye drops #15 mL (Artificial Tears ([id number])) quetiapine 50 mg tablet 100 mg (2 x 50 mg) PO HS #30 tabs 06/15/22 04/04/24 Rx sodium chloride 1,000 mg soluble 1,000 mg PO QAM #14 tabs 06/15/22 04/04/24 Rx tablet cetirizine 10 mg tablet (Zyrtec) 10 mg PO DAILY PRN allergy symptoms 08/20/23 04/04/24 History calcitriol 0.25 mcg capsule See Rx Instructions .Route 03/30/24 04/04/24 Rx .COMPLEX #38 caps Allergies Allergy/AdvReac Type Severity Reaction Status Date / Time adhesive tape Allergy Mild Unknown Verified 04/06/24 08:47 Influenza Virus Vaccines Allergy Mild Hives Verified 04/06/24 08:47 smallpox vaccine,live Allergy Mild Hives Verified 04/06/24 08:47 Sulfa (Sulfonamide Allergy Mild HIVES Verified 04/04/24 16:23 Antibiotics) sulfamethoxazole Allergy Mild HIVES Verified 04/04/24 16:23 cyclobenzaprine Allergy Unknown Unknown Verified 04/04/24 16:23 fluoxetine Allergy Unknown Unknown Verified 04/04/24 16:23 latex Allergy Unknown Unknown Verified 04/04/24 16:23 meperidine Allergy Unknown Unknown Verified 04/04/24 16:23 naproxen Allergy Unknown Unknown Verified 04/04/24 16:23 trimethoprim Allergy Unknown Unknown Verified 04/04/24 16:23 bethanechol AdvReac Mild INTESTINAL Verified 04/06/24 09:03 PROBLEMS EGGS Allergy Unknown Unknown Uncoded 04/04/24 16:23 SEE NSG NOTES Allergy Unknown Unknown Uncoded 04/04/24 16:23 Vital Signs Vital Signs - 24 hr 04/08/24 12:00 04/08/24 14:00 04/08/24 16:00 Temperature 96.6 F L Pulse Rate 81 87 85 Respiratory Rate 14 Blood Pressure 100/60 Pulse Oximetry 94 Oxygen Delivery 04/08/24 16:00 04/08/24 16:21 04/08/24 20:00 Temperature 97.5 F L Pulse Rate 86 Respiratory Rate 21 H Blood Pressure 103/44 L Pulse Oximetry 96 95 Oxygen Delivery Room Air Room Air 04/08/24 20:00 04/08/24 20:16 04/08/24 22:00 Temperature 97.4 F L Pulse Rate 75 86 70 Respiratory Rate 24 H Blood Pressure 133/49 L Pulse Oximetry 96 Oxygen Delivery 04/09/24 00:00 04/09/24 00:00 04/09/24 00:48 Temperature 97.4 F L Pulse Rate 77 79 Respiratory Rate 24 H Blood Pressure 142/49 H Pulse Oximetry 94 Oxygen Delivery Room Air 04/09/24 02:00 04/09/24 03:20 04/09/24 04:00 Temperature 97.4 F L Pulse Rate 75 82 Respiratory Rate 14 Blood Pressure 129/36 L Pulse Oximetry 93 Oxygen Delivery Room Air 04/09/24 04:00 04/09/24 06:00 Temperature Pulse Rate 83 85 Respiratory Rate Blood Pressure Pulse Oximetry Oxygen Delivery Exam 2 Const: General: comfortable and no acute distress Nutritional Appearance: o verweight Orientation/consciousness: patient oriented x3 HENMT: Head: normocephalic and atraumatic Ears: hearing grossly normal bilaterally Mouth: Yes moist mucous membranes Eyes: General: appearance normal, both eyes and all related structures P upils: Equal, round and reactive pupils present Neck: Neck: normal visual inspection, full ROM and no lymphadenopathy Chest: Chest palpation & inspection: normal inspection of the chest Resp: Effort & Inspection: no respiratory distress Auscultation: clear to auscultation bilaterally Cardio: Rate: regular rate Rhythm: regular rhythm GI: Inspection: non-distended and obesity GI Palp: Yes Soft to palpation, No Tenderness to palpation present (GI), No Guarding due to palpation present (GI) and No Rebound tenderness present Auscultation: normal bowel sounds Skin: General skin exam: normal color Neuro: General: moves all extremities and no focal motor deficits Speech: n ormal speech Motor exam (neuro): 5/5 motor strength present throughout Extrem: General: normal to inspection and no edema Psych: Mental Status: mental status grossly normal Attitude: cooperative Insight: Fair insight present (Psych) Judgement: Good judgement present (Psych) Results Labs 04/09/24 05:22 04/09/24 04:35 Labs: Abnormal lab results 04/08/24 04/08/24 04/08/24 Range/Units 11:51 13:45 13:50 RBC 2.81 L (4.2-5.4) M/mm3 Hgb 8.9 L (12.0-15.0) g/dL Hct 28.0 L (37.0-47.0) % MCHC 31.8 L (32-36) g/dl Neutrophils % (Manual) 87 H (46-73) % Lymphocytes % (Manual) 4.0 L (18-44) % Abs Neuts (Manual) 8.01 H (1.7-7.2) K/mm3 Abs Lymphs (Manual) 0.35 L (1.1-4.5) K/mm3 ABG pH 7.147 L* (7.350-7.450) ABG pO2 79.7 L (80.0-100.0) mmHg ABG HCO3 12.1 L (22.0-26.0) mEq/l ABG O2 Saturation 92.2 L (95.0-100.0) % ABG O2 Content 13.2 L (16.0-22.0) %vol Total Hemoglobin 9.8 L (12.0-18.0) g/dL Sodium 123 L (137-145) mmol/L Potassium (3.4-5.0) mmol/L Carbon Dioxide 12 L (22-30) mmol/L Anion Gap (4-12) mmol/L BUN 47 H (7-17) mg/dL Creatinine 6.62 H (0.7-1.0) mg/dL Estimated GFR 6 L (59 - ) Glucose 156 H (65-110) mg/dL POC Capillary Glucose 139 H (65-105) mg/dl Calcium 8.1 L (8.4-10.2) mg/dL AST 13 L (14-36) U/L ALT (6-35) U/L Ammonia < 9 L (9-30) umol/L Total Protein 6.0 L (6.3-8.2) g/dL Albumin 3.0 L (3.5-5.1) g/dL 04/09/24 04/09/24 04/09/24 Range/Units 00:51 04:35 05:22 RBC 2.64 L (4.2-5.4) M/mm3 Hgb 8.4 L (12.0-15.0) g/dL Hct 25.9 L (37.0-47.0) % MCHC (32-36) g/dl Neutrophils % (Manual) (46-73) % Lymphocytes % (Manual) (18-44) % Abs Neuts (Manual) (1.7-7.2) K/mm3 Abs Lymphs (Manual) (1.1-4.5) K/mm3 ABG pH (7.350-7.450) ABG pO2 (80.0-100.0) mmHg ABG HCO3 (22.0-26.0) mEq/l ABG O2 Saturation (95.0-100.0) % ABG O2 Content (16.0-22.0) %vol Total Hemoglobin (12.0-18.0) g/dL Sodium 125 L (137-145) mmol/L Potassium 5.1 H (3.4-5.0) mmol/L Carbon Dioxide 12 L (22-30) mmol/L Anion Gap 14 H (4-12) mmol/L BUN 49 H (7-17) mg/dL Creatinine 6.91 H (0.7-1.0) mg/dL Estimated GFR 6 L (59 - ) Glucose (65-110) mg/dL POC Capillary Glucose 115 H (65-105) mg/dl Calcium 7.7 L (8.4-10.2) mg/dL AST (14-36) U/L ALT < 6 L (6-35) U/L Ammonia (9-30) umol/L Total Protein 6.0 L (6.3-8.2) g/dL Albumin 3.4 L (3.5-5.1) g/dL Diabetes panel 04/08/24 04/09/24 Range/Units 13:50 04:35 Sodium 123 L 125 L (137-145) mmol/L Potassium 5.0 5.1 H (3.4-5.0) mmol/L Chloride 100 99 (98-107) mmol/L Carbon Dioxide 12 L 12 L (22-30) mmol/L BUN 47 H 49 H (7-17) mg/dL Creatinine 6.62 H 6.91 H (0.7-1.0) mg/dL Glucose 156 H 103 (65-110) mg/dL Calcium 8.1 L 7.7 L (8.4-10.2) mg/dL AST 13 L 15 (14-36) U/L ALT 7 < 6 L (6-35) U/L Alkaline Phosphatase 64 48 (38-126) U/L Total Protein 6.0 L 6.0 L (6.3-8.2) g/dL Albumin 3.0 L 3.4 L (3.5-5.1) g/dL Calcium panel 04/08/24 04/09/24 Range/Units 13:50 04:35 Calcium 8.1 L 7.7 L (8.4-10.2) mg/dL Albumin 3.0 L 3.4 L (3.5-5.1) g/dL Pituitary panel 04/08/24 04/09/24 Range/Units 13:50 04:35 Sodium 123 L 125 L (137-145) mmol/L Potassium 5.0 5.1 H (3.4-5.0) mmol/L Chloride 100 99 (98-107) mmol/L Carbon Dioxide 12 L 12 L (22-30) mmol/L BUN 47 H 49 H (7-17) mg/dL Creatinine 6.62 H 6.91 H (0.7-1.0) mg/dL Glucose 156 H 103 (65-110) mg/dL Calcium 8.1 L 7.7 L (8.4-10.2) mg/dL Adrenal panel 04/08/24 04/09/24 Range/Units 13:50 04:35 Sodium 123 L 125 L (137-145) mmol/L Potassium 5.0 5.1 H (3.4-5.0) mmol/L Chloride 100 99 (98-107) mmol/L Carbon Dioxide 12 L 12 L (22-30) mmol/L BUN 47 H 49 H (7-17) mg/dL Creatinine 6.62 H 6.91 H (0.7-1.0) mg/dL Glucose 156 H 103 (65-110) mg/dL Calcium 8.1 L 7.7 L (8.4-10.2) mg/dL Total Bilirubin 0.3 0.6 (0.2-1.3) mg/dL AST 13 L 15 (14-36) U/L ALT 7 < 6 L (6-35) U/L Alkaline Phosphatase 64 48 (38-126) U/L Total Protein 6.0 L 6.0 L (6.3-8.2) g/dL Albumin 3.0 L 3.4 L (3.5-5.1) g/dL All other labs normal. Imaging Additional studies: ITS Impressions Abdomen/Pelvis CT 04/04/24 11:24 IMPRESSION: Approximately 11.4 x 24 mm hepatic flexure colonic lipoma Nonspecific thickening of the wall of the sigmoid and descending colon which may be due to nonspecific colitis Mild sigmoid colon diverticulosis; no evidence of diverticulitis Status post hysterectomy Chest X-Ray 04/04/24 11:31 IMPRESSION: No active cardiopulmonary disease No intraperitoneal free air is detected Renal Ultrasound 04/06/24 11:46 Impression: Unremarkable ultrasound of the kidneys. Cholelithiasis and gallbladder sludge incidentally noted. Abdomen/Pelvis CT 04/06/24 19:19 IMPRESSION: Left basilar infiltrate with a small right-sided pleural effusion, an interval change from 04/04/2023. Marked delayed excretion within the bilateral kidneys, consistent with patient's history. Fluid distention of the stomach, extending to the proximal jejunum consistent with patient's history Mural thickening within the rectosigmoid colon with multiple diverticula and trace surrounding inflammatory change, similar in appearance to examination dated 04/04/2024. No drainable fluid collections or gross perforation is noted. Interval development of significant anasarca and retroperitoneal inflammatory change. Chest X-Ray 04/08/24 08:12 IMPRESSION: Left basilar atelectasis versus pneumonia seen medially. Brain MRI 04/08/24 17:05 IMPRESSION: 1. Normal aging brain.
[2024-04-09 12:47] LABS: Glucose Point of Care 118 mg/dl (65-105)
--- NOTE | 2024-04-09 13:19 | PCOTNOTE ---
The patient initial evaluation was not able to be completed on 04/09 due to not being stable medically and going to dialysis. Will plan to continue to follow patient and evaluate when medically appropriate.
--- NOTE | 2024-04-09 13:31 | P.PNIM_ITS ---
Progress Note: A&P Assessment and Plan (1) Acute kidney injury (JAE) with acute tubular necrosis (ATN): Code(s): N17.0 - Acute kidney failure with tubular necrosis Status: Acute Assessment and Plan: Patient received IV contrast on 04/04/24 with already underlying CKD now with worsening renal failure * Baseline around 2.00 currently 3.00 04/05/24 * Avoid nephrotoxic drugs. * Avoid NSAIDs. * Routine CMP monitoring GFR. * Monitor electrolytes especially potassium. 04/06/2024 * Worsening Cr 4.40 today could be secondary Anesthesia from EGD * NS 75 D/C D/5 * nephrology consulted for further recommendations and evaluation * bilateral renal ultrasound * Cipro D/c switched to Rocephin 04/07/2024: * Worsening Cr 5.16 * CT showing contrast in Kidneys from 3 days prior and anasarca in the stomach * failed fluid challenge will D/C * no urinary output Pedro placed with only 50 mL * Plan for renal function in the AM if no improvement hoping for renal recovery but may need temporary dialysis with consult to surgery for dialysis access. * Potassium 5.2 dose of Lokelma 04/08: JAE continues to worsen, acidosis continues to worsen, declining mental status with slurred speech and patient stating that she believes she a stroke, MRI ordered, several medications held this afternoon. Nephrology aware as I spoke with Dr. Reyna earlier and RN called to update with worsening clinical picture. 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 but denies any history of varices * Hgb 10.9 POA dropped to 8.7 * GI consulted * EGD showed Ferrell's esophagus * Continue with serial H&H 7.9 today * Protonix BID * avoid NSAIDS * Transfuse PRBC if Hgb <7.0 * Clear liquid diet 04/08: Tolerating clear liquid, no hematemesis or bloody stools Continue Protonix GI signing off 04/09 continue oral ppi (3) Colitis: Code(s): K52.9 - Noninfective gastroenteritis and colitis, unspecified Status: Acute Assessment and Plan: CT abdomen showing colitis/There is an approximately 11.4 x 24 mm fatty lesion within the hepatic flexure of the colon, most consistent with a lipoma. This type of lesion can erode and cause rectal bleeding. * GI consulted * GI recommended ciprofloxacin and Flagyl * will need follow-up colonoscopy in 6-8 weeks after infectious process resulting unless her hemoglobin continues to trend down * PPI BID * clear liquid diet * WBC 12.2 today * Stool studies pending * bright red blood in stool reported * monitoring HGB 04/06/2024 * patient advanced to low-fiber diet but had N/V change back to clear liquid * F/U ct ABD * Hgb stable 04/08: Tolerated clears but altered LOC and slurred speech today, patient moved to IMU after findings of metabolic acidosis with incomplete compensation. 04/09 : pt remains acidotic awaiting dialysis, creat is 6.9, potassium is 5, ph is low, sodium is 125 (4) Chronic kidney disease, stage IV (severe): Code(s): N18.4 - Chronic kidney disease, stage 4 (severe) Status: Acute Assessment and Plan: * Gentle IV hydration. * Baseline around 2.00 currently 3.00 04/05/24 * Avoid nephrotoxic drugs. * Monitor antihypertensive drug therapy. * Avoid NSAIDs. * Routine CMP monitoring GFR. * Monitor electrolytes especially potassium. * Antibiotic doses depending on creatinine clearance. * Pharmacy does medications. * Routine follow-up with Nephrology as an outpatient. 04/06/2024 * Worsening Cr 4.40 today could be secondary Anesthesia from EGD * NS 75 D/C D/ * nephrology consulted for further recommendations and evaluation * bilateral renal ultrasound * Cipro D/c switched to Rocephin 04/08: Tolerated clears but altered LOC and slurred speech today, patient moved to IMU after findings of metabolic acidosis with incomplete compensation. Potentially encephalopathy due to build up of sedating medications. MRI ordered to assess for Stroke. 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 Status: Acute Assessment and Plan: * HX of and currently seen on EGD * PPI * Clear liquids * serial H&H 04/08: Hgb 7.9 in AM and 8.9 in afternoon 04/09: hb is 8 today (7) Hypertension: Code(s): I10 - Essential (primary) hypertension Status: Acute Assessment and Plan: watch bp s lisinopril on hold (8) Hypomagnesemia: Code(s): E83.42 - Hypomagnesemia Status: Acute Assessment and Plan: * Mag 1.1 * replenished with 4g * trend and replenish as needed RESOLVED 04/08: Magnesium 2.3 04/09 mg is 2.3 (9) Hyponatremia: Code(s): E87.1 - Hypo-osmolality and hyponatremia Status: Acute Assessment and Plan: * chronically low * resume sodium tablets 1000 * monitor neurological status 04/08: Sodium declining, salt tabs had been on hold so restarted today. IV fluid bolus LR 1000 mL and sodium bicarb given for metabolic acidosis related to decreased kidney function. (10) Metabolic acidosis: Code(s): E87.20 - Acidosis, unspecified Status: Acute Assessment and Plan: 04/08: patient with altered level of consciousness slurred speech. Ordered ABG. pH 7.147 pCO2 35.7 PO2 79.7 HC03 12.1 base excess -15.7 ordered 1 L LR bolus and 2 amps of sodium bicarb IV push 04/09 pt is on oral sodium bicarbonate remains acidotic this am (11) Encephalopathy acute: Code(s): G93.40 - Encephalopathy, unspecified Status: Acute Assessment and Plan: 04/08: patient with slurred speech difficulty awakening concerned for CO2 narcosis ABG resulted metabolic acidosis, beta hydroxybutyrate and lactic acid normal metabolic acidosis related to decreased renal function ammonia level negative, MRI brain without contrast also negative 04/09 likely secondary to uremia and severe MA Subjective Date/time seen: 04/09/24 13:31 Interval history: Pt admitted with history of Ferrell esophagus, chronic kidney disease stage 4, type 2 diabetes mellitus, hypertension, hyperlipidemia, and depression who presented to the emergency department for evaluation of vomiting blood and bloody diarrhea. pt had urgent EGD pt had contrast on admission pts creat is raising up since then likely secondary to contrast pt to have cam line placed by surgery MD, pt to start temp dialysis as per nephrology MD. Pt appears confused possible related to uremia Plan to continue to watch BMP and UO Review of Systems Review of Systems: Ongoing confusion Exam Narrative: * GENERAL: awake and alert, chronically ill looking pleasant female. acutely confused with slurred speech and difficulty coordinating eating with utensils * EYES: PERRLA. * HEENT: Moist mucous membranes. * LUNGS: Clear to auscultation bilaterally. No accessory muscle use. * CARDIOVASCULAR: Regular rate and rhythm. No murmur. No JVD. S1-S2 * ABDOMEN: Soft, non-tender and non-distended. normoactive bowel sounds * EXTREMITIES: No edema. Non-tender * SKIN: No rashes or lesions. Skin warm, dry. * NEUROLOGIC: slurred speech, patient reaching to grab utensils during meal but not coordinated no focal weakness, no choking fluids, unable to obtain full as sessment due to encephalopathy/confusion * PSYCHIATRIC: Unable to assess due to encephalopathy Objective Data Vital Signs Vital Signs: Vital Signs - 24 hr 04/08/24 14:00 04/08/24 16:00 04/08/24 16:00 Temperature 35.9 C L Pulse Rate 87 85 Respiratory Rate 14 Blood Pressure 100/60 Pulse Oximetry 94 96 Oxygen Delivery Room Air 04/08/24 16:21 04/08/24 20:00 04/08/24 20:00 Temperature 36.4 C L Pulse Rate 86 75 Respiratory Rate 21 H Blood Pressure 103/44 L Pulse Oximetry 95 Oxygen Delivery Room Air 04/08/24 20:16 04/08/24 22:00 04/09/24 00:00 Temperature 36.3 C L Pulse Rate 86 70 77 Respiratory Rate 24 H Blood Pressure 133/49 L Pulse Oximetry 96 Oxygen Delivery 04/09/24 00:00 04/09/24 00:48 04/09/24 02:00 Temperature 36.3 C L Pulse Rate 79 75 Respiratory Rate 24 H Blood Pressure 142/49 H Pulse Oximetry 94 Oxygen Delivery Room Air 04/09/24 03:20 04/09/24 04:00 04/09/24 04:00 Temperature 36.3 C L Pulse Rate 82 83 Respiratory Rate 14 Blood Pressure 129/36 L Pulse Oximetry 93 Oxygen Delivery Room Air 04/09/24 06:00 04/09/24 08:00 04/09/24 08:00 Temperature Pulse Rate 85 87 87 Respiratory Rate Blood Pressure Pulse Oximetry 94 Oxygen Delivery Room Air 04/09/24 08:00 04/09/24 12:00 Temperature 35.8 C L 36.7 C Pulse Rate 79 85 Respiratory Rate 12 16 Blood Pressure 114/48 L 117/46 L Pulse Oximetry 94 95 Oxygen Delivery Intake/Output Intake/Output: Intake & Output 04/06/24 04/07/24 04/08/24 04/09/24 23:59 23:59 23:59 23:59 Intake Total 1788.8 647 317 Output Total 50 70 Balance 1788.8 597 247 Meds/Results Medications: Active Medications Generic Name Dose Route Start Last Admin Trade Name Freq PRN Reason Stop Dose Admin Acetaminophen 650 mg 04/04/24 12:10 04/08/24 17:40 Acetaminophen 325 Mg Tablet PO 650 mg Q4H PRN Administration Mild Pain (1-3) or Fever Artificial Tears 1 drop 04/04/24 20:15 Artificial Tears Ophth Soln 15 Ml Bottle EACH EYE Q4H PRN Dry Eye(S) Bupropion HCl 100 mg 04/05/24 09:00 04/08/24 08:52 Bupropion Hcl 100 Mg Tablet PO 100 mg BID JUAN PABLO Administration Calcitriol 0.25 mcg 04/06/24 09:00 04/08/24 08:52 Calcitriol 0.25 Mcg Capsule BY MOUTH 0.25 mcg [id number] JUAN PABLO Administration Carvedilol 12.5 mg 04/04/24 21:00 04/05/24 20:43 Carvedilol 12.5 Mg Tablet PO Not Given Q12HR JUAN PABLO Dextrose 12.5 gm 04/04/24 21:51 Dextrose 50% 25 Gm/50 Ml Syringe IV PUSH PRN PRN Hypoglycemia Protocol Epoetin Ki-epbx 10,000 units 04/09/24 20:16 Epoetin Ki-Epbx 10,000 Units/Ml Vial IV PUSH 04/09/24 20:17 ONCE ONE Escitalopram Oxalate 10 mg 04/08/24 09:00 04/08/24 08:52 Escitalopram Oxalate 10 Mg Tablet PO 10 mg DAILY JUAN PABLO Administration Famotidine 10 mg 04/10/24 09:00 Famotidine 10 Mg Tablet PO DAILY JUAN PABLO Glucagon 1 mg 04/04/24 21:51 Glucagon For Inj 1 Mg Vial IM PRN PRN Hypoglycemia Protocol Glucose 15 gm 04/04/24 21:51 Glucose Oral Gel 15 Gm Of Glucse In 37.5 Gm Tube PO PRN PRN Hypoglycemia Protocol Hydromorphone HCl 0.5 mg 04/04/24 12:10 Hydromorphone Hcl Inj (*Crx) 1 Mg/Ml Syr IV PUSH Q4H PRN Pain Rated 7-10 Dextrose 1,000 mls @ 100 mls/hr 04/04/24 21:51 Dextrose 5% 1,000 Ml IVPB PRN PRN Hypoglycemia Protocol Albumin Human 50 mls @ 999 mls/hr 04/09/24 11:16 Albutein IVPB 05/09/24 11:15 Q10M PRN HYPOTENSION Latanoprost 1 drop 04/05/24 09:00 04/08/24 08:52 Latanoprost 0.005% Op Soln 2.5 Ml Btl EACH EYE 1 drop DAILY JUAN PABLO Administration Loratadine 10 mg 04/04/24 20:25 Loratadine 10 Mg Tablet PO QAM PRN allergy symptoms Ondansetron HCl 4 mg 04/04/24 12:10 Ondansetron Inj 4 Mg/2 Ml Vial IV PUSH Q4H PRN Nausea Pravastatin Sodium 40 mg 04/05/24 09:00 04/08/24 08:51 Pravastatin Sodium 20 Mg Tablet PO 40 mg DAILY JUAN PABLO Administration Quetiapine Fumarate 100 mg 04/04/24 21:00 04/07/24 21:06 Quetiapine Fumarate 100 Mg Tablet PO 100 mg HS JUAN PABLO Administration Sodium Bicarbonate 1,300 mg 04/08/24 09:00 04/08/24 17:40 Sodium Bicarbonate Tab 650 Mg Tablet PO 1,300 mg BID JUAN PABLO Administration Sodium Chloride 1 gm 04/05/24 09:00 04/07/24 08:44 Sodium Chloride 1 Gm Tablet PO 1 gm QAM JUAN PABLO Administration Vitamin D 2,000 units 04/05/24 09:00 04/08/24 17:40 Cholecalciferol 1,000 Units Tablet PO 2,000 units BID JUAN PABLO Administration Radiology Results: ITS Impressions Renal Ultrasound 04/06/24 11:46 Impression: Unremarkable ultrasound of the kidneys. Cholelithiasis and gallbladder sludge incidentally noted. Abdomen/Pelvis CT 04/06/24 19:19 IMPRESSION: Left basilar infiltrate with a small right-sided pleural effusion, an interval change from 04/04/2023. Marked delayed excretion within the bilateral kidneys, consistent with patient's history. Fluid distention of the stomach, extending to the proximal jejunum consistent with patient's history Mural thickening within the rectosigmoid colon with multiple diverticula and trace surrounding inflammatory change, similar in appearance to examination dated 04/04/2024. No drainable fluid collections or gross perforation is noted. Interval development of significant anasarca and retroperitoneal inflammatory change. Chest X-Ray 04/08/24 08:12 IMPRESSION: Left basilar atelectasis versus pneumonia seen medially. Brain MRI 04/08/24 17:05 IMPRESSION: 1. Normal aging brain. Labs Labs: Laboratory Results - last 24 hr 04/08/24 04/08/24 04/08/24 05:18 13:45 13:50 WBC 8.9 RBC 2.81 L Hgb 8.9 L Hct 28.0 L MCV 99.6 MCH 31.7 MCHC 31.8 L RDW 14.5 Plt Count 218 MPV 9.8 Immature Gran % (Auto) Not Reportable Neut % (Auto) Not Reportable Lymph % (Auto) Not Reportable [place] % (Auto) Not Reportable Eos % (Auto) Not Reportable Baso % (Auto) Not Reportable Lymph # (Auto) Not Reportable [place] # (Auto) Not Reportable Eos # (Auto) Not Reportable Baso # (Auto) Not Reportable Abs Immat Gran (auto) Not Reportable Absolute Neuts (auto) Not Reportable Absolute Nucleated RBC Not Reportable Total Counted 100 Neutrophils % (Manual) 87 H Band Neutrophils % 3 Lymphocytes % (Manual) 4.0 L Monocytes % (Manual) 4 Eosinophils % (Manual) 2 Nucleated RBC % Not Reportable Abs Neuts (Manual) 8.01 H Abs Lymphs (Manual) 0.35 L Abs Monocytes (Manual) 0.35 Absolute Eos (Manual) 0.17 Platelet Estimate Adequate Hypochromasia 1+ Schistocytes None seen Puncture Site Left radial ABG pH 7.147 L* ABG pCO2 35.7 ABG pO2 79.7 L ABG PO2/FiO2 Ratio 3.80 ABG HCO3 12.1 L ABG O2 Saturation 92.2 L ABG O2 Content 13.2 L ABG Base Excess -15.7 A-a Gradient 27.3 Oxyhemoglobin 94.8 Total Hemoglobin 9.8 L O2 Delivery Device Room air O2 Liters/Min Not Reportable FiO2 21 Sodium 123 L Potassium 5.0 Chloride 100 Carbon Dioxide 12 L Anion Gap 11 BUN 47 H Creatinine 6.62 H Estim Creat Clear Calc Not Reportable Estimated GFR 6 L Glucose 156 H POC Capillary Glucose Lactic Acid Calcium 8.1 L Magnesium 2.3 Total Bilirubin AST ALT Alkaline Phosphatase Ammonia Total Protein Albumin Beta-Hydroxybutyrate/Acetoacetate Hep B Core Total Ab Non-reactive 04/08/24 04/08/24 04/09/24 13:50 14:29 00:51 WBC RBC Hgb Hct MCV MCH MCHC RDW Plt Count MPV Immature Gran % (Auto) Neut % (Auto) Lymph % (Auto) [place] % (Auto) Eos % (Auto) Baso % (Auto) Lymph # (Auto) [place] # (Auto) Eos # (Auto) Baso # (Auto) Abs Immat Gran (auto) Absolute Neuts (auto) Absolute Nucleated RBC Total Counted Neutrophils % (Manual) Band Neutrophils % Lymphocytes % (Manual) Monocytes % (Manual) Eosinophils % (Manual) Nucleated RBC % Abs Neuts (Manual) Abs Lymphs (Manual) Abs Monocytes (Manual) Absolute Eos (Manual) Platelet Estimate Hypochromasia Schistocytes Puncture Site ABG pH ABG pCO2 ABG pO2 ABG PO2/FiO2 Ratio ABG HCO3 ABG O2 Saturation ABG O2 Content ABG Base Excess A-a Gradient Oxyhemoglobin Total Hemoglobin O2 Delivery Device O2 Liters/Min FiO2 Sodium Potassium Chloride Carbon Dioxide Anion Gap BUN Creatinine Estim Creat Clear Calc Estimated GFR Glucose POC Capillary Glucose 115 H Lactic Acid 0.9 Calcium Magnesium Cancelled Total Bilirubin 0.3 AST 13 L ALT 7 Alkaline Phosphatase 64 Ammonia < 9 L Total Protein 6.0 L Albumin 3.0 L Beta-Hydroxybutyrate/Acetoacetate 0.25 Hep B Core Total Ab 04/09/24 04/09/24 04/09/24 04:35 05:22 12:40 WBC 9.9 RBC 2.64 L Hgb 8.4 L Hct 25.9 L MCV 98.1 MCH 31.8 MCHC 32.4 RDW 14.3 Plt Count 225 MPV 10.4 Immature Gran % (Auto) Neut % (Auto) Lymph % (Auto) [place] % (Auto) Eos % (Auto) Baso % (Auto) Lymph # (Auto) [place] # (Auto) Eos # (Auto) Baso # (Auto) Abs Immat Gran (auto) Absolute Neuts (auto) Absolute Nucleated RBC Total Counted Neutrophils % (Manual) Band Neutrophils % Lymphocytes % (Manual) Monocytes % (Manual) Eosinophils % (Manual) Nucleated RBC % Abs Neuts (Manual) Abs Lymphs (Manual) Abs Monocytes (Manual) Absolute Eos (Manual) Platelet Estimate Hypochromasia Schistocytes Puncture Site ABG pH ABG pCO2 ABG pO2 ABG PO2/FiO2 Ratio ABG HCO3 ABG O2 Saturation ABG O2 Content ABG Base Excess A-a Gradient Oxyhemoglobin Total Hemoglobin O2 Delivery Device O2 Liters/Min FiO2 Sodium 125 L Potassium 5.1 H Chloride 99 Carbon Dioxide 12 L Anion Gap 14 H BUN 49 H Creatinine 6.91 H Estim Creat Clear Calc Not Reportable Estimated GFR 6 L Glucose 103 POC Capillary Glucose 118 H Lactic Acid Calcium 7.7 L Magnesium 2.3 Total Bilirubin 0.6 AST 15 ALT < 6 L Alkaline Phosphatase 48 Ammonia Total Protein 6.0 L Albumin 3.4 L Beta-Hydroxybutyrate/Acetoacetate Hep B Core Total Ab
--- NOTE | 2024-04-09 13:34 | PCPTNOTE ---
pt leaving for dialysis for the afternoon, will follow
[2024-04-09 14:13] LABS: Hematocrit 25.5 % (37.0-47.0); Hemoglobin 8.3 g/dL (12.0-15.0); Mean Corpuscular HGB Conc 32.5 g/dl (32-36); Mean Corpuscular Hemoglobin 31.6 pg (26-34); Mean Platelet Volume 10.1 fl (7.4-10.4); Platelet Count Result 222 k/mm3 (150-375); Red Blood Count 2.63 M/mm3 (4.2-5.4); Red Cell Distribution Width 14.4 % (11.5-14.5); White Blood Count 9.3 K/mm3 (4.5-10.0)
[2024-04-09 14:37] LABS: Anion Gap 15 mmol/L (4-12); Blood Urea Nitrogen 53 mg/dL (7-17); Calcium 7.6 mg/dL (8.4-10.2); Carbon Dioxide 15 mmol/L (22-30); Chloride 96 mmol/L (98-107); Estimated Glomerular Filt Rate 5; Glucose 102 mg/dL (65-110); Potassium 4.6 mmol/L (3.4-5.0); Sodium 126 mmol/L (137-145)
--- NOTE | 2024-04-09 16:02 | P.OP_ITS ---
Procedure Note - Detailed Date of Procedure 04/09/24 Pre-op Diagnosis GI bleed, gastroenteritis, Acute on chronic renal failure. Post-op Diagnosis Same Procedure Performed Placement of non tunneled temporary left femoral vein Cam hemodialysis catheter. Surgeon Jim Higginbotham MD [employer] Marsha Titus APN Anesthesia Local Indications Patient is a 74-year-old female who has had progressively worsening renal function. She is followed by Nephrology. During this hospitalization she was found to have acute worsening of her renal function and is thought that she needs to start hemodialysis at least on a temporary basis. I have been asked to place a non tunneled temporary Cam hemodialysis catheter to start hemodialysis. Findings None significant Description of Procedure After informed consent was obtained the patient is placed supine in the hospital room bed. The area the left groin region was then prepped and draped usual sterile fashion. There is no evidence of fungal rash in left groin crease oral left inguinal region. Time-out was then performed. About 10cc of 1% lidocaine without epinephrine was injected just medial to the palpable left femoral arterial pulse. Then utilizing the Seldinger technique and then used a long 18gauge needle to percutaneously cannulate the left common femoral vein on the 1st pass without any difficulty. There was prompt return of dark venous appearing blood. A guidewire was advanced through the needle into the left common femoral vein ellipse into the iliac vein and inferior vena cava. The needle was then removed. The insertion site of the guidewire was then enlarged with the scalpel. Serial dilators were advanced over the guidewire to enlarge to be not a me. Lastly a 20cm non tunneled temporary Cam hemodialysis catheter was advanced over the guidewire into the left common femoral vein and up into the inferior vena cava. The catheter was then secured at the skin level with some 3-0 nylon sutures. Both the arterial and venous return ports were aspirated and flushed with heparinized saline solution. The 3rd pigtail port and catheter was also flushed with heparinized saline solution easily. The area around the catheter was then cleaned the sterile dressing was applied. The patient tolerated the procedure well no complications. All sponges, needles, and instrument counts were correct at the end procedure. EBL was _75__cc. The patient was awakened and taken to recovery in stable and satisfactory condition. Implants 20cm non tunneled temporary Cam hemodialysis catheter with 3rd pigtail port placed via the left femoral vein. Estimated Blood Loss 75 Pathology None sent Complications No immediate complications Condition Stable Disposition Floor [facility] Billing Surgery - Charge Forward: Surgery Billing
--- NOTE | 2024-04-09 16:56 | PC.NURSE ---
Pt had donna dialysis catheter placed in the left groin by Dr. Higginbotham at bedside. Taken to HD
--- NOTE | 2024-04-09 17:25 | PM.PNNEP ---
Progress Note: A&P Assessment and Plan (1) JAE (acute kidney injury): Code(s): N17.9 - Acute kidney failure, unspecified Status: Acute Assessment and Plan: as noted since admission suspect multifactorial etiology: prerenal factors relative hypotension contrast exposure (CT with contrast on 04/04/24) LENNIE-I use prior to admission relative anemia other (?) evaluation to date noted: urine electrolytes prerenal urine eosinophils negative UA without evidence of infection CPK normal renal utrasound okay repeat CT of A/P still notes contrast present in kidneys not making much urine and having issues with hyponatremia, worsening metabolic acidosis and possible uremic symptoms... s/p temporary HD catheter placement today plan HD today, tomorrow and likely day after follow trend of repeat labs and UOP to assess for potential renal recovery (2) Chronic kidney disease, stage IV (severe): Code(s): N18.4 - Chronic kidney disease, stage 4 (severe) Status: Acute Assessment and Plan: baseline creatinine runs ~ 1.8 - 2.3mg/dl due hypertension, diabetes, and age-related change with contributions with previous use of NSAIDs (3) Metabolic acidosis: Code(s): E87.20 - Acidosis, unspecified Status: Acute Assessment and Plan: due to worsening JAE/ARF attempting to compensate with sodium bicarb suspect dialysis will further correct this follow trend (4) Hyponatremia: Code(s): E87.1 - Hypo-osmolality and hyponatremia Status: Acute Assessment and Plan: chronic issues at baseline likely worsened by JAE/ARF given JAE, sodium tabs on hold dialysis will correct to some degree follow trend of sodium level (5) GI bleed: Code(s): K92.2 - Gastrointestinal hemorrhage, unspecified Status: Acute Assessment and Plan: reported history of vomiting blood [employer] known history of Barrettt's esophagus Hgb dropped since admission GI following: s/p EGD - no active bleeding with Ferrell's esophagus on PPI follow trend of H/H PRBC transfusion per protocol (6) Colitis: Code(s): K52.9 - Noninfective gastroenteritis and colitis, unspecified Status: Acute Assessment and Plan: as noted by admission CT of A/P GI recommendations noted off antibiotics advance diet as tolerated (7) Chronic anemia: Code(s): D64.9 - Anemia, unspecified Status: Chronic Assessment and Plan: probably related to CKD acute worsening noted since admission complicated by #5 consider SANDRA follow H/H (8) Hypertension: Code(s): I10 - Essential (primary) hypertension Status: Acute Assessment and Plan: BP on the soft side since admission lisinopril on hold due to #1 follow trend of hemodynamics Will continue to follow. Subjective Date/time seen: 04/09/24 17:23 Interval history: Follow-up for acute kidney injury/acute renal failure on chronic kidney disease. S/P temporary femoral HD catheter placement earlier and tolerating dialysis treatment at the time of my visit (seen on HD at 5:10PM); no acute distress noted but still states that she does not feel very good but difficult for to elaborate as she quickly falls back to sleep. Exam Narrative: General: elderly but somewhat ill-appearing female in NAD Heart: normal S1 and S2; no rub Lungs: clear to auscultation Abdomen: soft, mild TTP, nondistended, positive bowel sounds Extremities: no cyanosis or clubbing; no edema Skin: no nodules Objective Data Vital Signs Vital Signs: Vital Signs Temp Pulse Resp BP Pulse Ox O2 Del Method 04/09/24 17:15 84 116/96 H 04/09/24 17:00 87 163/66 H 04/09/24 16:52 88 151/67 H 04/09/24 16:40 97.6 F 88 16 155/60 H 94 04/09/24 16:00 97.6 F 86 20 146/49 H 94 04/09/24 12:00 88 04/09/24 12:00 Room Air 04/09/24 12:00 98.0 F 85 16 117/46 L 95 04/09/24 10:00 88 04/09/24 08:00 96.4 F L 79 12 114/48 L 94 04/09/24 08:00 87 04/09/24 08:00 87 94 Room Air 04/09/24 06:00 85 04/09/24 04:00 83 04/09/24 04:00 Room Air 04/09/24 03:20 97.4 F L 82 14 129/36 L 93 04/09/24 02:00 75 04/09/24 00:48 97.4 F L 79 24 H 142/49 H 94 04/09/24 00:00 Room Air 04/09/24 00:00 77 04/08/24 22:00 70 04/08/24 20:16 97.4 F L 86 24 H 133/49 L 96 04/08/24 20:00 75 04/08/24 20:00 Room Air Intake/Output Intake/Output: Intake & Output 04/06/24 04/07/24 04/08/24 04/09/24 23:59 23:59 23:59 23:59 Intake Total 1788.8 647 317 Output Total 50 70 Balance 1788.8 597 247 Meds/Results Medications: Active Medications Generic Name Dose Route Start Last Admin Trade Name Freq PRN Reason Stop Dose Admin Acetaminophen 650 mg 04/04/24 12:10 04/08/24 17:40 Acetaminophen 325 Mg Tablet PO 650 mg Q4H PRN Administration Mild Pain (1-3) or Fever Artificial Tears 1 drop 04/04/24 20:15 Artificial Tears Ophth Soln 15 Ml Bottle EACH EYE Q4H PRN Dry Eye(S) Bupropion HCl 100 mg 04/05/24 09:00 04/08/24 08:52 Bupropion Hcl 100 Mg Tablet PO 100 mg BID JUAN PABLO Administration Calcitriol 0.25 mcg 04/06/24 09:00 04/08/24 08:52 Calcitriol 0.25 Mcg Capsule BY MOUTH 0.25 mcg [id number] JUAN PABLO Administration Carvedilol 12.5 mg 04/04/24 21:00 04/05/24 20:43 Carvedilol 12.5 Mg Tablet PO Not Given Q12HR JUAN PABLO Dextrose 12.5 gm 04/04/24 21:51 Dextrose 50% 25 Gm/50 Ml Syringe IV PUSH PRN PRN Hypoglycemia Protocol Epoetin Ki-epbx 10,000 units 04/09/24 20:16 04/09/24 18:48 Epoetin Ki-Epbx 10,000 Units/Ml Vial IV PUSH 04/09/24 20:17 10,000 units ONCE ONE Administration Escitalopram Oxalate 10 mg 04/08/24 09:00 04/08/24 08:52 Escitalopram Oxalate 10 Mg Tablet PO 10 mg DAILY JUAN PABLO Administration Famotidine 10 mg 04/10/24 09:00 Famotidine 10 Mg Tablet PO DAILY JUAN PABLO Glucagon 1 mg 04/04/24 21:51 Glucagon For Inj 1 Mg Vial IM PRN PRN Hypoglycemia Protocol Glucose 15 gm 04/04/24 21:51 Glucose Oral Gel 15 Gm Of Glucse In 37.5 Gm Tube PO PRN PRN Hypoglycemia Protocol Heparin Sodium (Porcine) 3,000 units 04/09/24 18:50 Heparin Sodium 1,000 Units/Ml Vial IV PUSH 04/09/24 18:51 ONCE ONE Hydromorphone HCl 0.5 mg 04/04/24 12:10 Hydromorphone Hcl Inj (*Crx) 1 Mg/Ml Syr IV PUSH Q4H PRN Pain Rated 7-10 Dextrose 1,000 mls @ 100 mls/hr 04/04/24 21:51 Dextrose 5% 1,000 Ml IVPB PRN PRN Hypoglycemia Protocol Albumin Human 50 mls @ 999 mls/hr 04/09/24 11:16 Albutein IVPB 05/09/24 11:15 Q10M PRN HYPOTENSION Latanoprost 1 drop 04/05/24 09:00 04/09/24 14:56 Latanoprost 0.005% Op Soln 2.5 Ml Btl EACH EYE Not Given DAILY [facility] Loratadine 10 mg 04/04/24 20:25 Loratadine 10 Mg Tablet PO QAM PRN allergy symptoms Ondansetron HCl 4 mg 04/04/24 12:10 Ondansetron Inj 4 Mg/2 Ml Vial IV PUSH Q4H PRN Nausea Pravastatin Sodium 40 mg 04/05/24 09:00 04/09/24 14:56 Pravastatin Sodium 20 Mg Tablet PO Not Given DAILY [facility] Quetiapine Fumarate 100 mg 04/04/24 21:00 04/07/24 21:06 Quetiapine Fumarate 100 Mg Tablet PO 100 mg HS [facility] Administration Sodium Bicarbonate 1,300 mg 04/08/24 09:00 04/09/24 14:56 Sodium Bicarbonate Tab 650 Mg Tablet PO Not Given BID JUAN PABLO Sodium Chloride 1 gm 04/05/24 09:00 04/09/24 14:57 Sodium Chloride 1 Gm Tablet PO Not Given QAM [facility] Sodium Zirconium Cyclosilicate 5 gm 04/09/24 18:00 Sodium Zirconium Cyclosilicate 5 Gm Powd.Pack PO BID@1000,1800 JUAN PABLO Vitamin D 2,000 units 04/05/24 09:00 04/09/24 14:55 Cholecalciferol 1,000 Units Tablet PO Not Given BID [facility] Radiology Results: ITS Impressions Renal Ultrasound 04/06/24 11:46 Impression: Unremarkable ultrasound of the kidneys. Cholelithiasis and gallbladder sludge incidentally noted. Abdomen/Pelvis CT 04/06/24 19:19 IMPRESSION: Left basilar infiltrate with a small right-sided pleural effusion, an interval change from 04/04/2023. Marked delayed excretion within the bilateral kidneys, consistent with patient's history. Fluid distention of the stomach, extending to the proximal jejunum consistent with patient's history Mural thickening within the rectosigmoid colon with multiple diverticula and trace surrounding inflammatory change, similar in appearance to examination dated 04/04/2024. No drainable fluid collections or gross perforation is noted. Interval development of significant anasarca and retroperitoneal inflammatory change. Chest X-Ray 04/08/24 08:12 IMPRESSION: Left basilar atelectasis versus pneumonia seen medially. Brain MRI 04/08/24 17:05 IMPRESSION: 1. Normal aging brain. Labs Labs: Laboratory Tests 04/09/24 13:59 04/09/24 13:59 Microbiology 04/08/24 14:38 Blood Blood Culture - Preliminary 04/08/24 14:29 Blood Blood Culture - Preliminary
[2024-04-09] MEDS: EPOETIN ALFA-EPBX 10,000 UNITS/ML VIAL 10000 UNITS IV PUSH (18:48)
[2024-04-09] MEDS: HEPARIN SODIUM 1,000 UNITS/ML VIAL 3000 UNITS IV PUSH (19:37)
[2024-04-09] MEDS: LIDOCAINE 1% LOCAL INJ 10 ML VIAL 20 ML INFILTRATE (19:45)
[2024-04-09 21:11] LABS: Glucose Point of Care 106 mg/dl (65-105)
[2024-04-09 21:15] LABS: Hematocrit 23.7 % (37.0-47.0); Hemoglobin 7.5 g/dL (12.0-15.0); Mean Corpuscular HGB Conc 31.6 g/dl (32-36); Mean Corpuscular Hemoglobin 31.5 pg (26-34); Mean Corpuscular Volume 99.6 fl (80-100); Mean Platelet Volume 10.4 fl (7.4-10.4); Platelet Count Result 203 k/mm3 (150-375); Red Blood Count 2.38 M/mm3 (4.2-5.4); Red Cell Distribution Width 14.5 % (11.5-14.5); White Blood Count 7.7 K/mm3 (4.5-10.0)
[2024-04-09] MEDS: SODIUM ZIRCONIUM CYCLOSILICATE 5 GM POWD.PACK PO (21:21)
[2024-04-09 21:29] LABS: Anion Gap 9 mmol/L (4-12); Blood Urea Nitrogen 29 mg/dL (7-17); Carbon Dioxide 20 mmol/L (22-30); Chloride 97 mmol/L (98-107); Estimated Glomerular Filt Rate 11; Glucose 89 mg/dL (65-110); Potassium 3.7 mmol/L (3.4-5.0); Sodium 126 mmol/L (137-145)
[2024-04-10] VITALS (31 sets, daily range): BP systolic 103–174; BP diastolic 38–70; PULSE 78–87; RESP 16–22; TEMP 36.6–37.1; O2SAT 93–100
[2024-04-10 05:18] LABS: Alanine Aminotransferase 6 U/L (6-35); Albumin Level 2.8 g/dL (3.5-5.1); Alkaline Phosphatase 48 U/L (38-126); Anion Gap 10 mmol/L (4-12); Aspartate Amino Transferase 17 U/L (14-36); Bilirubin,Total 0.5 mg/dL (0.2-1.3); Blood Urea Nitrogen 31 mg/dL (7-17); Calcium 7.7 mg/dL (8.4-10.2); Carbon Dioxide 19 mmol/L (22-30); Chloride 96 mmol/L (98-107); Estimated Glomerular Filt Rate 10; Glucose 80 mg/dL (65-110); Magnesium 2.1 mg/dL (1.6-2.3); Potassium 4.1 mmol/L (3.4-5.0); Sodium 125 mmol/L (137-145)
[2024-04-10 06:34] LABS: Alveolar/Arterial O2 Gradient 40.6 mmHg; Fractional Inspired Oxygen 21 %; HCO3 ABG 21.6 mEq/l (22.0-26.0); Modified Allen's Test Pass; Oxygen Content ABG 11.1 %vol (16.0-22.0); Oxygen Saturation ABG 88.9 % (95.0-100.0); Oxyhemoglobin 89.4 % THb (90.0-100.0); PCO2 ABG 41.8 mmHg (35.0-45.0); PO2 ABG 59.1 mmHg (80.0-100.0); PO2 FiO2 Ratio Arterial Blood 2.81 %; Site Drawn RIGHT RADIAL; Total Hemoglobin 8.8 g/dL (12.0-18.0); pH ABG 7.332 (7.350-7.450)
[2024-04-10 06:35] LABS: Device ROOM AIR
[2024-04-10 07:28] LABS: Hematocrit 23.3 % (37.0-47.0); Hemoglobin 7.7 g/dL (12.0-15.0); Mean Corpuscular Hemoglobin 31.6 pg (26-34); Mean Corpuscular Volume 95.5 fl (80-100); Mean Platelet Volume 10.4 fl (7.4-10.4); Platelet Count Result 239 k/mm3 (150-375); Red Blood Count 2.44 M/mm3 (4.2-5.4); Red Cell Distribution Width 14.4 % (11.5-14.5); White Blood Count 8.9 K/mm3 (4.5-10.0)
[2024-04-10] MEDS: SODIUM CHLORIDE 1 GM TABLET PO (08:54)
[2024-04-10] MEDS: CHOLECALCIFEROL 1,000 UNITS TABLET 2000 UNITS PO ×2 (08:54→16:34)
[2024-04-10] MEDS: FAMOTIDINE 10 MG TABLET PO (08:54)
[2024-04-10] MEDS: SODIUM BICARBONATE TAB 650 MG TABLET 1300 MG PO (08:54)
[2024-04-10] MEDS: PRAVASTATIN SODIUM 20 MG TABLET 40 MG PO (08:55)
[2024-04-10] MEDS: calcitrioL 0.25 MCG CAPSULE BY MOUTH (09:02)
--- NOTE | 2024-04-10 10:20 | P.PNNP_ITS ---
Progress Note: A&P Assessment and Plan (1) JAE (acute kidney injury): Code(s): N17.9 - Acute kidney failure, unspecified Status: Acute Assessment and Plan: * as noted since admission * suspect multifactorial etiology: * prerenal factors * relative hypotension * contrast exposure (CT with contrast on 04/04/24) * LENNIE-I use prior to admission * relative anemia * other (?) * evaluation to date noted: * urine electrolytes prerenal * urine eosinophils negative * UA without evidence of infection * CPK normal * renal utrasound okay * repeat CT of A/P still notes contrast present in kidneys * not making much urine and having issues with hyponatremia, worsening metabolic acidosis and possible uremic symptoms... * s/p temporary HD catheter placement on 04/09/23 * HD yesterday * plan HD today and tomorrow * follow trend of repeat labs and UOP to assess for potential renal recovery (2) Chronic kidney disease, stage IV (severe): Code(s): N18.4 - Chronic kidney disease, stage 4 (severe) Status: Acute Assessment and Plan: * baseline creatinine runs ~ 1.8 - 2.3mg/dl * due hypertension, diabetes, and age-related change with contributions with previous use of NSAIDs (3) Metabolic acidosis: Code(s): E87.20 - Acidosis, unspecified Status: Acute Assessment and Plan: * due to worsening JAE/ARF * dialysis will continue to further correct this * follow trend (4) Hyponatremia: Code(s): E87.1 - Hypo-osmolality and hyponatremia Status: Acute Assessment and Plan: * chronic issues at baseline * likely worsened by JAE/ARF * given JAE, sodium tabs on hold * dialysis will correct to some degree * follow trend of sodium level (5) GI bleed: Code(s): K92.2 - Gastrointestinal hemorrhage, unspecified Status: Acute Assessment and Plan: * reported history of vomiting blood [employer] * known history of Barrettt's esophagus * Hgb dropped since admission * GI following: * s/p EGD - no active bleeding with Ferrell's esophagus * on PPI * follow trend of H/H * PRBC transfusion per protocol (6) Colitis: Code(s): K52.9 - Noninfective gastroenteritis and colitis, unspecified Status: Acute Assessment and Plan: * as noted by admission CT of A/P * GI recommendations noted * off antibiotics * advance diet as tolerated (7) Chronic anemia: Code(s): D64.9 - Anemia, unspecified Status: Chronic Assessment and Plan: * probably related to CKD * acute worsening noted since admission * complicated by #5 * consider SANDRA * follow H/H (8) Hypertension: Code(s): I10 - Essential (primary) hypertension Status: Acute Assessment and Plan: * BP on the soft side since admission * lisinopril on hold due to #1 * follow trend of hemodynamics Will continue to follow. L Subjective Date/time seen: 04/10/24 10:20 Interval history: Follow-up for acute kidney injury/acute renal failure on chronic kidney disease. Tolerated temporary femoral HD catheter placement and dialysis treatment yesterday afternoon; tolerating dialysis treatment at the time of my visit (seen on HD at 10:10AM).; her mentation, electrolytes, and acidosis seem better following dialysis but difficult for her to say if she has improved or not -- still not eating/drinking very much and not making much urine either; no acute distress noted currently. Exam 2 Narrative: General: elderly but somewhat ill-appearing female in NAD Heart: normal S1 and S2; no rub Lungs: clear to auscultation Abdomen: soft, mild TTP, nondistended, positive bowel sounds Extremities: no cyanosis or clubbing; no edema Skin: warm and dry Objective Data Vital Signs Vital Signs: Vital Signs Temp Pulse Resp BP Pulse Ox O2 Del Method 04/10/24 10:15 81 121/52 L 04/10/24 10:00 81 155/69 H 04/10/24 09:45 81 159/70 H 04/10/24 09:33 98.4 F 83 16 159/70 H 95 04/10/24 08:04 83 141/47 H 94 04/10/24 08:00 98.7 F 84 22 H 135/46 L 93 04/10/24 07:56 98.7 F 84 22 H 135/46 L 93 04/10/24 06:02 97.8 F 83 16 138/62 98 04/10/24 06:00 83 04/10/24 04:00 86 04/10/24 04:00 Room Air 04/10/24 02:00 84 04/10/24 00:37 97.8 F 83 16 144/52 H 98 04/10/24 00:00 Room Air 04/09/24 22:00 88 04/09/24 21:20 97.9 F 89 16 109/45 L 95 04/09/24 20:00 90 04/09/24 20:00 Room Air 04/09/24 19:28 98.1 F 86 16 156/66 H 96 04/09/24 19:23 87 133/102 H 04/09/24 19:15 85 146/81 H 04/09/24 19:00 84 138/54 L 04/09/24 18:45 83 133/57 L 04/09/24 18:30 83 134/58 L 04/09/24 18:15 83 138/58 L 04/09/24 18:00 86 04/09/24 18:00 84 134/58 L 04/09/24 17:45 83 142/57 H 04/09/24 17:30 84 148/57 H 04/09/24 17:15 84 116/96 H 04/09/24 17:00 87 163/66 H 04/09/24 16:52 88 151/67 H 04/09/24 16:40 97.6 F 88 16 155/60 H 94 04/09/24 16:00 Room Air 04/09/24 16:00 82 04/09/24 16:00 97.6 F 86 20 146/49 H 94 Intake/Output Intake/Output: Intake & Output 04/07/24 04/08/24 04/09/24 04/10/24 23:59 23:59 23:59 23:59 Intake Total 647 317 Output Total 50 70 0 25 Balance 597 247 0 -25 Meds/Results Medications: Active Medications Generic Name Dose Route Start Last Admin Trade Name Freq PRN Reason Stop Dose Admin Acetaminophen 650 mg 04/04/24 12:10 04/08/24 17:40 Acetaminophen 325 Mg Tablet PO 650 mg Q4H PRN Administration Mild Pain (1-3) or Fever Artificial Tears 1 drop 04/04/24 20:15 Artificial Tears Ophth Soln 15 Ml Bottle EACH EYE Q4H PRN Dry Eye(S) Bupropion HCl 100 mg 04/05/24 09:00 04/08/24 08:52 Bupropion Hcl 100 Mg Tablet PO 100 mg BID JUAN PABLO Administration Calcitriol 0.25 mcg 04/06/24 09:00 04/10/24 09:02 Calcitriol 0.25 Mcg Capsule BY MOUTH 0.25 mcg [id number] JUAN PABLO Administration Carvedilol 12.5 mg 04/04/24 21:00 04/05/24 20:43 Carvedilol 12.5 Mg Tablet PO Not Given Q12HR JUAN PABLO Dextrose 12.5 gm 04/04/24 21:51 Dextrose 50% 25 Gm/50 Ml Syringe IV PUSH PRN PRN Hypoglycemia Protocol Epoetin Ki-epbx 10,000 units 04/10/24 19:44 04/10/24 10:46 Epoetin Ki-Epbx 10,000 Units/Ml Vial IV PUSH 04/10/24 19:45 10,000 units ONCE ONE Administration Escitalopram Oxalate 10 mg 04/08/24 09:00 04/08/24 08:52 Escitalopram Oxalate 10 Mg Tablet PO 10 mg DAILY JUAN PABLO Administration Famotidine 10 mg 04/10/24 09:00 04/10/24 08:54 Famotidine 10 Mg Tablet PO 10 mg DAILY JUAN PABLO Administration Glucagon 1 mg 04/04/24 21:51 Glucagon For Inj 1 Mg Vial IM PRN PRN Hypoglycemia Protocol Glucose 15 gm 04/04/24 21:51 Glucose Oral Gel 15 Gm Of Glucse In 37.5 Gm Tube PO PRN PRN Hypoglycemia Protocol Hydromorphone HCl 0.5 mg 04/04/24 12:10 Hydromorphone Hcl Inj (*Crx) 1 Mg/Ml Syr IV PUSH Q4H PRN Pain Rated 7-10 Dextrose 1,000 mls @ 100 mls/hr 04/04/24 21:51 Dextrose 5% 1,000 Ml IVPB PRN PRN Hypoglycemia Protocol Albumin Human 50 mls @ 999 mls/hr 04/09/24 11:16 Albutein IVPB 05/09/24 11:15 Q10M PRN HYPOTENSION Latanoprost 1 drop 04/05/24 09:00 04/10/24 08:55 Latanoprost 0.005% Op Soln 2.5 Ml Btl EACH EYE Not Given DAILY JUAN PABLO Loratadine 10 mg 04/04/24 20:25 Loratadine 10 Mg Tablet PO QAM PRN allergy symptoms Ondansetron HCl 4 mg 04/04/24 12:10 Ondansetron Inj 4 Mg/2 Ml Vial IV PUSH Q4H PRN Nausea Pravastatin Sodium 40 mg 04/05/24 09:00 04/10/24 08:55 Pravastatin Sodium 20 Mg Tablet PO 40 mg DAILY JUAN PABLO Administration Quetiapine Fumarate 100 mg 04/04/24 21:00 04/07/24 21:06 Quetiapine Fumarate 100 Mg Tablet PO 100 mg HS JUAN PABLO Administration Sodium Bicarbonate 1,300 mg 04/08/24 09:00 04/10/24 08:54 Sodium Bicarbonate Tab 650 Mg Tablet PO 1,300 mg BID JUAN PABLO Administration Sodium Chloride 1 gm 04/05/24 09:00 04/10/24 08:54 Sodium Chloride 1 Gm Tablet PO 1 gm QAM JUAN PABLO Administration Vitamin D 2,000 units 04/05/24 09:00 04/10/24 08:54 Cholecalciferol 1,000 Units Tablet PO 2,000 units BID JUAN PABLO Administration Radiology Results: ITS Impressions Renal Ultrasound 04/06/24 11:46 Impression: Unremarkable ultrasound of the kidneys. Cholelithiasis and gallbladder sludge incidentally noted. Abdomen/Pelvis CT 04/06/24 19:19 IMPRESSION: Left basilar infiltrate with a small right-sided pleural effusion, an interval change from 04/04/2023. Marked delayed excretion within the bilateral kidneys, consistent with patient's history. Fluid distention of the stomach, extending to the proximal jejunum consistent with patient's history Mural thickening within the rectosigmoid colon with multiple diverticula and trace surrounding inflammatory change, similar in appearance to examination dated 04/04/2024. No drainable fluid collections or gross perforation is noted. Interval development of significant anasarca and retroperitoneal inflammatory change. Brain MRI 04/08/24 17:05 IMPRESSION: 1. Normal aging brain. Chest X-Ray 04/10/24 08:29 Impression: 1: No acute cardiopulmonary disease. Labs Labs: Laboratory Tests 04/10/24 06:55 04/10/24 04:47 Calcium 7.7 L Magnesium 2.1 Total Bilirubin 0.5 AST 17 ALT 6 Alkaline Phosphatase 48 Total Protein 5.0 L Albumin 2.8 L Microbiology 04/08/24 14:38 Blood Blood Culture - Preliminary 04/08/24 14:29 Blood Blood Culture - Preliminary
[2024-04-10] MEDS: EPOETIN ALFA-EPBX 10,000 UNITS/ML VIAL 10000 UNITS IV PUSH (10:46)
--- NOTE | 2024-04-10 12:28 | P.PNIM_ITS ---
Progress Note: A&P Assessment and Plan (1) Acute kidney injury (JAE) with acute tubular necrosis (ATN): Code(s): N17.0 - Acute kidney failure with tubular necrosis Status: Acute Assessment and Plan: Patient received IV contrast on 04/04/24 with already underlying CKD now with worsening renal failure * Baseline around 2.00 currently 3.00 04/05/24 * Avoid nephrotoxic drugs. * Avoid NSAIDs. * Routine CMP monitoring GFR. * Monitor electrolytes especially potassium. 04/06/2024 * Worsening Cr 4.40 today could be secondary Anesthesia from EGD * NS 75 D/C D/5 * nephrology consulted for further recommendations and evaluation * bilateral renal ultrasound * Cipro D/c switched to Rocephin 04/07/2024: * Worsening Cr 5.16 * CT showing contrast in Kidneys from 3 days prior and anasarca in the stomach * failed fluid challenge will D/C * no urinary output Pedro placed with only 50 mL * Plan for renal function in the AM if no improvement hoping for renal recovery but may need temporary dialysis with consult to surgery for dialysis access. * Potassium 5.2 dose of Lokelma 04/08: JAE continues to worsen, acidosis continues to worsen, declining mental status with slurred speech and patient stating that she believes she a stroke, MRI ordered, several medications held this afternoon. Nephrology aware as I spoke with Dr. Reyna earlier and RN called to update with worsening clinical picture. 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 but denies any history of varices * Hgb 10.9 POA dropped to 8.7 * GI consulted * EGD showed Ferrell's esophagus * Continue with serial H&H 7.9 today * Protonix BID * avoid NSAIDS * Transfuse PRBC if Hgb <7.0 * Clear liquid diet 04/08: Tolerating clear liquid, no hematemesis or bloody stools Continue Protonix GI signing off 04/09 continue oral ppi 04/10 continue oral ppi (3) Colitis: Code(s): K52.9 - Noninfective gastroenteritis and colitis, unspecified Status: Acute Assessment and Plan: CT abdomen showing colitis/There is an approximately 11.4 x 24 mm fatty lesion within the hepatic flexure of the colon, most consistent with a lipoma. This type of lesion can erode and cause rectal bleeding. * GI consulted * GI recommended ciprofloxacin and Flagyl * will need follow-up colonoscopy in 6-8 weeks after infectious process resulting unless her hemoglobin continues to trend down * PPI BID * clear liquid diet * WBC 12.2 today * Stool studies pending * bright red blood in stool reported * monitoring HGB 04/06/2024 * patient advanced to low-fiber diet but had N/V change back to clear liquid * F/U ct ABD * Hgb stable 04/08: Tolerated clears but altered LOC and slurred speech today, patient moved to IMU after findings of metabolic acidosis with incomplete compensation. 04/09 : pt remains acidotic awaiting dialysis, creat is 6.9, potassium is 5, ph is low, sodium is 125 04/10: ph is improving, creat is 4, sodium is 125 sp 2 dialysis sessions (4) Chronic kidney disease, stage IV (severe): Code(s): N18.4 - Chronic kidney disease, stage 4 (severe) Status: Acute Assessment and Plan: * Gentle IV hydration. * Baseline around 2.00 currently 3.00 04/05/24 * Avoid nephrotoxic drugs. * Monitor antihypertensive drug therapy. * Avoid NSAIDs. * Routine CMP monitoring GFR. * Monitor electrolytes especially potassium. * Antibiotic doses depending on creatinine clearance. * Pharmacy does medications. * Routine follow-up with Nephrology as an outpatient. 04/06/2024 * Worsening Cr 4.40 today could be secondary Anesthesia from EGD * NS 75 D/C D/ * nephrology consulted for further recommendations and evaluation * bilateral renal ultrasound * Cipro D/c switched to Rocephin 04/08: Tolerated clears but altered LOC and slurred speech today, patient moved to IMU after findings of metabolic acidosis with incomplete compensation. Potentially encephalopathy due to build up of sedating medications. MRI ordered to assess for Stroke. 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 Status: Acute Assessment and Plan: * HX of and currently seen on EGD * PPI * Clear liquids * serial H&H 04/08: Hgb 7.9 in AM and 8.9 in afternoon 04/09: hb is 8 today 04/10 hb is 7.7 (7) Hypertension: Code(s): I10 - Essential (primary) hypertension Status: Acute Assessment and Plan: watch bp s lisinopril on hold (8) Hypomagnesemia: Code(s): E83.42 - Hypomagnesemia Status: Acute Assessment and Plan: * Mag 1.1 * replenished with 4g * trend and replenish as needed RESOLVED 04/08: Magnesium 2.3 04/09 mg is 2.3 (9) Hyponatremia: Code(s): E87.1 - Hypo-osmolality and hyponatremia Status: Acute Assessment and Plan: * chronically low * resume sodium tablets 1000 * monitor neurological status 04/08: Sodium declining, salt tabs had been on hold so restarted today. IV fluid bolus LR 1000 mL and sodium bicarb given for metabolic acidosis related to decreased kidney function. (10) Metabolic acidosis: Code(s): E87.20 - Acidosis, unspecified Status: Acute Assessment and Plan: 04/08: patient with altered level of consciousness slurred speech. Ordered ABG. pH 7.147 pCO2 35.7 PO2 79.7 HC03 12.1 base excess -15.7 ordered 1 L LR bolus and 2 amps of sodium bicarb IV push 04/09 pt is on oral sodium bicarbonate remains acidotic this am (11) Encephalopathy acute: Code(s): G93.40 - Encephalopathy, unspecified Status: Acute Assessment and Plan: 04/08: patient with slurred speech difficulty awakening concerned for CO2 narcosis ABG resulted metabolic acidosis, beta hydroxybutyrate and lactic acid normal metabolic acidosis related to decreased renal function ammonia level negative, MRI brain without contrast also negative 04/09 likely secondary to uremia and severe MA 04/10 pt appears less confused today states she feels very tired Subjective Date/time seen: 04/10/24 12:28 Interval history: Pt admitted with history of Ferrell esophagus, chronic kidney disease stage 4, type 2 diabetes mellitus, hypertension, hyperlipidemia, and depression who presented to the emergency department for evaluation of vomiting blood and bloody diarrhea. pt had urgent EGD pt had contrast on admission pts creat is raising up since then likely secondary to contrast pt to have cam line placed by surgery MD, pt to start temp dialysis as per nephrology MD. Pt had emergent dialysis yesterday and today unfortunately no fluid came off sp cam line by surgery day before Review of Systems Review of Systems: No specific complaints Exam Narrative: * GENERAL: awake and alert, chronically ill looking pleasant female. acutely confused with slurred speech and difficulty coordinating eating with utensils * EYES: PERRLA. * HEENT: Moist mucous membranes. * LUNGS: Clear to auscultation bilaterally. No accessory muscle use. * CARDIOVASCULAR: Regular rate and rhythm. No murmur. No JVD. S1-S2 * ABDOMEN: Soft, non-tender and non-distended. normoactive bowel sounds * EXTREMITIES: No edema. Non-tender * SKIN: No rashes or lesions. Skin warm, dry. * NEUROLOGIC: slurred speech, patient reaching to grab utensils during meal but not coordinated no focal weakness, no choking fluids, unable to obtain full assessment due to encephalopathy/confusion * PSYCHIATRIC: Unable to assess due to encephalopathy Objective Data Vital Signs Vital Signs: Vital Signs - 24 hr 04/09/24 14:00 04/09/24 16:00 04/09/24 16:00 Temperature 36.4 C Pulse Rate 85 86 82 Respiratory Rate 20 Blood Pressure 146/49 H Pulse Oximetry 94 Oxygen Delivery 04/09/24 16:00 04/09/24 16:40 04/09/24 16:52 Temperature 36.4 C Pulse Rate 88 88 Respiratory Rate 16 Blood Pressure 155/60 H 151/67 H Pulse Oximetry 94 Oxygen Delivery Room Air 04/09/24 17:00 04/09/24 17:15 04/09/24 17:30 Temperature Pulse Rate 87 84 84 Respiratory Rate Blood Pressure 163/66 H 116/96 H 148/57 H Pulse Oximetry Oxygen Delivery 04/09/24 17:45 04/09/24 18:00 04/09/24 18:00 Temperature Pulse Rate 83 84 86 Respiratory Rate Blood Pressure 142/57 H 134/58 L Pulse Oximetry Oxygen Delivery 04/09/24 18:15 04/09/24 18:30 04/09/24 18:45 Temperature Pulse Rate 83 83 83 Respiratory Rate Blood Pressure 138/58 L 134/58 L 133/57 L Pulse Oximetry Oxygen Delivery 04/09/24 19:00 04/09/24 19:15 04/09/24 19:23 Temperature Pulse Rate 84 85 87 Respiratory Rate Blood Pressure 138/54 L 146/81 H 133/102 H Pulse Oximetry Oxygen Delivery 04/09/24 19:28 04/09/24 20:00 04/09/24 20:00 Temperature 36.7 C Pulse Rate 86 90 Respiratory Rate 16 Blood Pressure 156/66 H Pulse Oximetry 96 Oxygen Delivery Room Air 04/09/24 21:20 04/09/24 22:00 04/10/24 00:00 Temperature 36.6 C Pulse Rate 89 88 Respiratory Rate 16 Blood Pressure 109/45 L Pulse Oximetry 95 Oxygen Delivery Room Air 04/10/24 00:37 04/10/24 02:00 04/10/24 04:00 Temperature 36.6 C Pulse Rate 83 84 Respiratory Rate 16 Blood Pressure 144/52 H Pulse Oximetry 98 Oxygen Delivery Room Air 04/10/24 04:00 04/10/24 06:00 04/10/24 06:02 Temperature 36.6 C Pulse Rate 86 83 83 Respiratory Rate 16 Blood Pressure 138/62 Pulse Oximetry 98 Oxygen Delivery 04/10/24 07:56 04/10/24 08:00 04/10/24 08:04 Temperature 37.1 C 37.1 C Pulse Rate 84 84 83 Respiratory Rate 22 H 22 H Blood Pressure 135/46 L 135/46 L 141/47 H Pulse Oximetry 93 93 94 Oxygen Delivery 04/10/24 09:33 04/10/24 09:45 04/10/24 10:00 Temperature 36.9 C Pulse Rate 83 81 81 Respiratory Rate 16 Blood Pressure 159/70 H 159/70 H 155/69 H Pulse Oximetry 95 Oxygen Delivery 04/10/24 10:15 04/10/24 10:30 04/10/24 10:45 Temperature Pulse Rate 81 82 82 Respiratory Rate Blood Pressure 121/52 L 136/62 138/62 Pulse Oximetry Oxygen Delivery 04/10/24 11:00 04/10/24 11:15 04/10/24 11:30 Temperature Pulse Rate 82 82 78 Respiratory Rate Blood Pressure 145/67 H 124/58 L 103/46 L Pulse Oximetry Oxygen Delivery 04/10/24 11:45 04/10/24 12:00 04/10/24 12:15 Temperature Pulse Rate 82 80 81 Respiratory Rate Blood Pressure 110/53 L 137/65 145/63 H Pulse Oximetry Oxygen Delivery Intake/Output Intake/Output: Intake & Output 04/07/24 04/08/24 04/09/24 04/10/24 23:59 23:59 23:59 23:59 Intake Total 647 317 Output Total 50 70 0 25 Balance 597 247 0 -25 Meds/Results Medications: Active Medications Generic Name Dose Route Start Last Admin Trade Name Freq PRN Reason Stop Dose Admin Acetaminophen 650 mg 04/04/24 12:10 04/08/24 17:40 Acetaminophen 325 Mg Tablet PO 650 mg Q4H PRN Administration Mild Pain (1-3) or Fever Artificial Tears 1 drop 04/04/24 20:15 Artificial Tears Ophth Soln 15 Ml Bottle EACH EYE Q4H PRN Dry Eye(S) Bupropion HCl 100 mg 04/05/24 09:00 04/08/24 08:52 Bupropion Hcl 100 Mg Tablet PO 100 mg BID JUAN PABLO Administration Calcitriol 0.25 mcg 04/06/24 09:00 04/10/24 09:02 Calcitriol 0.25 Mcg Capsule BY MOUTH 0.25 mcg [id number] JUAN PABLO Administration Carvedilol 12.5 mg 04/04/24 21:00 04/05/24 20:43 Carvedilol 12.5 Mg Tablet PO Not Given Q12HR JUAN PABLO Dextrose 12.5 gm 04/04/24 21:51 Dextrose 50% 25 Gm/50 Ml Syringe IV PUSH PRN PRN Hypoglycemia Protocol Epoetin Ki-epbx 10,000 units 04/10/24 19:44 04/10/24 10:46 Epoetin Ki-Epbx 10,000 Units/Ml Vial IV PUSH 04/10/24 19:45 10,000 units ONCE ONE Administration Escitalopram Oxalate 10 mg 04/08/24 09:00 04/08/24 08:52 Escitalopram Oxalate 10 Mg Tablet PO 10 mg DAILY JUAN PABLO Administration Famotidine 10 mg 04/10/24 09:00 04/10/24 08:54 Famotidine 10 Mg Tablet PO 10 mg DAILY JUAN PABLO Administration Glucagon 1 mg 04/04/24 21:51 Glucagon For Inj 1 Mg Vial IM PRN PRN Hypoglycemia Protocol Glucose 15 gm 04/04/24 21:51 Glucose Oral Gel 15 Gm Of Glucse In 37.5 Gm Tube PO PRN PRN Hypoglycemia Protocol Hydromorphone HCl 0.5 mg 04/04/24 12:10 Hydromorphone Hcl Inj (*Crx) 1 Mg/Ml Syr IV PUSH Q4H PRN Pain Rated 7-10 Dextrose 1,000 mls @ 100 mls/hr 04/04/24 21:51 Dextrose 5% 1,000 Ml IVPB PRN PRN Hypoglycemia Protocol Albumin Human 50 mls @ 999 mls/hr 04/09/24 11:16 Albutein IVPB 05/09/24 11:15 Q10M PRN HYPOTENSION Latanoprost 1 drop 04/05/24 09:00 04/10/24 08:55 Latanoprost 0.005% Op Soln 2.5 Ml Btl EACH EYE Not Given DAILY JUAN PABLO Loratadine 10 mg 04/04/24 20:25 Loratadine 10 Mg Tablet PO QAM PRN allergy symptoms Ondansetron HCl 4 mg 04/04/24 12:10 Ondansetron Inj 4 Mg/2 Ml Vial IV PUSH Q4H PRN Nausea Pravastatin Sodium 40 mg 04/05/24 09:00 04/10/24 08:55 Pravastatin Sodium 20 Mg Tablet PO 40 mg DAILY JUAN PABLO Administration Quetiapine Fumarate 100 mg 04/04/24 21:00 04/07/24 21:06 Quetiapine Fumarate 100 Mg Tablet PO 100 mg HS JUAN PABLO Administration Sodium Bicarbonate 1,300 mg 04/08/24 09:00 04/10/24 08:54 Sodium Bicarbonate Tab 650 Mg Tablet PO 1,300 mg BID JUAN PABLO Administration Sodium Chloride 1 gm 04/05/24 09:00 04/10/24 08:54 Sodium Chloride 1 Gm Tablet PO 1 gm QAM JUAN PABLO Administration Sodium Zirconium Cyclosilicate 5 gm 04/09/24 18:00 04/09/24 21:21 Sodium Zirconium Cyclosilicate 5 Gm Powd.Pack PO 5 gm BID@1000,1800 JUAN PABLO Administration Vitamin D 2,000 units 04/05/24 09:00 04/10/24 08:54 Cholecalciferol 1,000 Units Tablet PO 2,000 units BID JUAN PABLO Administration Radiology Results: ITS Impressions Renal Ultrasound 04/06/24 11:46 Impression: Unremarkable ultrasound of the kidneys. Cholelithiasis and gallbladder sludge incidentally noted. Abdomen/Pelvis CT 04/06/24 19:19 IMPRESSION: Left basilar infiltrate with a small right-sided pleural effusion, an interval change from 04/04/2023. Marked delayed excretion within the bilateral kidneys, consistent with patient's history. Fluid distention of the stomach, extending to the proximal jejunum consistent with patient's history Mural thickening within the rectosigmoid colon with multiple diverticula and trace surrounding inflammatory change, similar in appearance to examination dated 04/04/2024. No drainable fluid collections or gross perforation is noted. Interval development of significant anasarca and retroperitoneal inflammatory change. Brain MRI 04/08/24 17:05 IMPRESSION: 1. Normal aging brain. Chest X-Ray 04/10/24 08:29 Impression: 1: No acute cardiopulmonary disease. Labs Labs: Laboratory Results - last 24 hr 04/09/24 04/09/24 04/09/24 12:40 13:59 21:05 WBC 9.3 RBC 2.63 L Hgb 8.3 L Hct 25.5 L MCV 97.0 MCH 31.6 MCHC 32.5 RDW 14.4 Plt Count 222 MPV 10.1 Puncture Site ABG pH ABG pCO2 ABG pO2 ABG PO2/FiO2 Ratio ABG HCO3 ABG O2 Saturation ABG O2 Content ABG Base Excess A-a Gradient Oxyhemoglobin Total Hemoglobin O2 Delivery Device O2 Liters/Min FiO2 Sodium 126 L Potassium 4.6 Chloride 96 L Carbon Dioxide 15 L Anion Gap 15 H BUN 53 H Creatinine 7.46 H Estim Creat Clear Calc Not Reportable Estimated GFR 5 L Glucose 102 POC Capillary Glucose 118 H 106 H Calcium 7.6 L Magnesium Total Bilirubin AST ALT Alkaline Phosphatase Total Protein Albumin 04/09/24 04/09/2404/10/25 21:07 21:08 04:47 WBC 7.7 RBC 2.38 L Hgb 7.5 L Hct 23.7 L MCV 99.6 MCH 31.5 MCHC 31.6 L RDW 14.5 Plt Count 203 MPV 10.4 Puncture Site ABG pH ABG pCO2 ABG pO2 ABG PO2/FiO2 Ratio ABG HCO3 ABG O2 Saturation ABG O2 Content ABG Base Excess A-a Gradient Oxyhemoglobin Total Hemoglobin O2 Delivery Device O2 Liters/Min FiO2 Sodium 126 L 125 L Potassium 3.7 4.1 Chloride 97 L 96 L Carbon Dioxide 20 L 19 L Anion Gap 9 10 BUN 29 H D 31 H Creatinine 3.87 H 4.38 H Estim Creat Clear Calc Not Reportable Not Reportable Estimated GFR 11 L 10 L Glucose 89 80 POC Capillary Glucose Calcium 8.0 L 7.7 L Magnesium 2.1 Total Bilirubin 0.5 AST 17 ALT 6 Alkaline Phosphatase 48 Total Protein 5.0 L Albumin 2.8 L 04/10/24 04/10/24 06:00 06:55 WBC 8.9 RBC 2.44 L Hgb 7.7 L Hct 23.3 L MCV 95.5 MCH 31.6 MCHC 33.0 RDW 14.4 Plt Count 239 MPV 10.4 Puncture Site Right radial ABG pH 7.332 L ABG pCO2 41.8 ABG pO2 59.1 L ABG PO2/FiO2 Ratio 2.81 ABG HCO3 21.6 L ABG O2 Saturation 88.9 L ABG O2 Content 11.1 L ABG Base Excess -4.0 A-a Gradient 40.6 Oxyhemoglobin 89.4 L Total Hemoglobin 8.8 L O2 Delivery Device Room air O2 Liters/Min Not Reportable FiO2 21 Sodium Potassium Chloride Carbon Dioxide Anion Gap BUN Creatinine Estim Creat Clear Calc Estimated GFR Glucose POC Capillary Glucose Calcium Magnesium Total Bilirubin AST ALT Alkaline Phosphatase Total Protein Albumin
[2024-04-10] MEDS: HEPARIN SODIUM 1,000 UNITS/ML VIAL 4000 UNITS (12:56)
--- NOTE | 2024-04-10 12:58 | PCOTNOTE ---
Attempted to see for OT evaluation. Patient is in dialysis. Patient also has a femoral dialysis catheter, which prohibits mobility out of bed.
--- NOTE | 2024-04-10 15:41 | PCPTNOTE ---
Per OT, patient is heading to dialysis 12:58.
--- NOTE | 2024-04-10 18:27 | PC.NURSE ---
Patient off floor to hemodialysis @ 0915.
--- NOTE | 2024-04-10 18:28 | PC.NURSE ---
Patient returned from Hemodialysis @ 6536. Report received from Junie
[2024-04-10 18:31] LABS: Glucose Point of Care 133 mg/dl (65-105)
[2024-04-11] VITALS (28 sets, daily range): BP systolic 119–166; BP diastolic 51–95; PULSE 73–92; RESP 16–22; TEMP 36.4–37.2; O2SAT 97–100
[2024-04-11 00:37] LABS: Glucose Point of Care 105 mg/dl (65-105)
--- OUTSIDE RECORDS SUMMARY | 2024-04-11 03:29 | XMS_ITS | Data Portability ---
Author Organization [facility] [place], Main Office Address [address] [place] [address] Care Team Providers Care General Expeditor Name Role Phone FLEX TOMPKINS Primary Care Provider FLEX TOMPKINS Referring Provider Assessment No assessment recorded. Plan of Treatment Reminders Order Date Submit Date Provider Last Modified By Organization Details Last Modified Time Details Appointments None recorded. Lab uric acid, serum or plasma 2023 024 [facility] (Lab), [address] [place], [address], 4 20:39:00 PTH (parathyroi d hormone), intact, serum or plasma 2023 024 [facility] (Lab), [address] [place], [address], 4 20:41:41 renal function panel, serum 2023 024 [email or web address] [address] (Lab), [address] [place], [address], 4 08:06:44 vitamin D, 25-hydroxy, total, serum 2023 024 [facility] (Lab), [address] [place], [address], 4 07:34:09 protein, total, urine 2023 024 [facility] (Lab), [address] [place], [address], 4 20:34:54 ESR (erythrocyt e sedimentati on rate), blood 2023 024 [facility] (Lab), [address] [place], [address], 4 21:47:07 lipid panel, serum 2023 024 [facility] (Lab), [address] [place], [address], 4 20:38:58 hepatic function panel, serum [email or web address] [place] [address] (Lab), [address] [place], [address], 4 08:06:45 HbA1c (hemoglobin A1c), blood 2023 024 [facility] (Lab), [address] [place], [address], 4 07:33:45 TSH, serum or plasma 2023 024 [facility] (Lab), [address] [place], [address], 4 21:02:31 T4, free, serum 2023 024 [facility] (Lab), [address] [place], [address], 4 20:49:42 CBC w/ auto diff 2023 024 [facility] (Lab), [address] [place], [address], 4 21:50:25 ferritin, serum or plasma 2023 024 [facility] (Lab), [address] [place], [address], 4 21:09:42 iron + total iron-bindin g capacity (TIBC), serum 2023 024 [facility] (Lab), [address] [place], [address], 4 20:37:47 CBC w/ auto diff 2023 024 [facility] (Lab), [address] [place], [address], 4 20:28:05 uric acid, serum or plasma [address] (Lab), [address] [place], [address], 4 16:31:52 glycohemogl obin, total, blood [address] (Lab), [address] [place], [address], 4 16:31:40 Referral medical reimbursement specialist referral - Please call patient to schedule an appointment . Thank you. 2023 024 brandon Isaac Jr DPM, [address], [address], [place], [address], 4 13:38:30 Procedures upper endoscopy procedure (EGD) (PROC) - Repeat due 12/23 [email or web address] [place] [address] (Pre-Screen), [address] [place], [address], 4 09:56:17 Surgeries None recorded. Imaging DEXA 2023 024 [facility] (Imaging), [address], [place], [address], 4 18:42:39 XR, hip + pelvis, unilateral 2023 024 [facility] Not available 4 17:43:26 XR, lumbar spine 2023 024 [facility] Not available 4 17:44:21 Medication Orders triamcinolo ne acetonide 0.1 % topical ointment 2023 024 [facility] #40600, [address], [place], [place], [id number], 4 15:56:50 OneTouch Verio test strips 2023 024 [facility] #65974, [address], [place], [place], [id number], 4 15:56:51 Ozempic 0.25 mg or 0.5 mg (2 mg/3 mL) subcutaneou s pen injector 2023 024 [facility] #63173, [address], [place], [place], [id number], 4 14:34:29 allopurinol 100 mg tablet 2023 024 [facility] #66820, [address], [place], [place], [id number], 4 16:20:45 Ozempic 0.25 mg or 0.5 mg (2 mg/3 mL) subcutaneou s pen injector 2023 024 [facility] #76838, [address], [place], [place], [id number], 4 16:21:15 carvedilol 12.5 mg tablet 2023 024 [facility]12844, [address], [place], [place], [id number], 16:20:46 gabapentin 300 mg capsule 2023 024 [facility], [address], [place], [place], [id number], 16:20:49 Patient TargetsNo targets recorded. Patient Instructions Encounter Date Encounter Id Patient Instructions Last Modified By Organization Details Last Modified Time 08/06/2023 [id number] dementia rating scale-2* [email or web address] Not available 08/07/2023 08:02:26 Personalized a lt Plan and Screening Recommendations Advance Directives - Do you have one? Advance Directives - Do we have your advance directive on file in your health record? Primary Prevention/Interven tion (prevents or decreases the chance of common diseases from occurring) Smoking Risk: Alcohol Misuse Screening: Weight: Physical activity: Nutrition: Fall Risk (screened today): Vaccines Pneumococcal: Influenza: Chronic Disease Risks Stroke: I have no recommendations Act shakir diagnosis, Continue current treatment plan Heart Attack: I have no recommendations Act shakir diagnosis, Continue current treatment plan Clogging of the Arteries: I have no recommendations Act shakir diagnosis, Continue current treatment plan Diabetes: Secondary Prevention/Interven tion (detects treatable diseases before they may cause symptoms, disability, or ) Breast Cancer Screening with mammogram: Cervical/Uterine/Ov travon Cancer Screening: Osteoporosis Screening: Date Screening Last Performed: Colon Cancer Screening: Date Screening Last Performed: Eye Disease Screening: Dementia Risk: Depression Screening: Not available 08/06/2023 15:56:30 Reason for Referral Nutrition Assistant Referral for Type 2 diabetes mellitus without complication Please call patient to schedule an appointment. Thank you. Referring Physician: Flex Tompkins, Family Medicine, Encounter Date: 08/06/2023 Results Created Date Observation Date Name Description Value Unit Range Abnormal Flag Note LastModifiedBy Organization Detail LastModifiedTime 08/06/19 24 08/06/2023 CBC/C OMPLE TE BLD COUNT W/DIF F white blood cells 10.0 x10'3 /uL 4.2-10 .8 Not Available [facility] (Lab) [address] [place], [address], 08/06/2023 20:28:05 08/06/19 24 08/06/2023 CBC/C OMPLE TE BLD COUNT W/DIF F red blood cells 3.31 x10'6 /uL 3.80-5 .20 low Not Available [facility] (Lab) [address] [place], [address], 08/06/2023 20:28:05 08/06/19 24 08/06/2023 CBC/C OMPLE TE BLD COUNT W/DIF F hemoglobin 10.5 g/dL 12.0-1 5.6 low Not Available [facility] (Lab) [address] [place], [address], 08/06/2023 20:28:05 08/06/19 24 08/06/2023 CBC/C OMPLE TE BLD COUNT W/DIF F hematocrit 32.9 % 35.7-4 5.7 low Not Available [facility] (Lab) [address] [place], [address], 08/06/2023 20:28:05 08/06/19 24 08/06/2023 CBC/C OMPLE TE BLD COUNT W/DIF F mean red cell volume 99.4 fL 82.0-9 9.0 high Not Available [facility] (Lab) [address] [place], [address], 08/06/2023 20:28:05 08/06/19 24 08/06/2023 CBC/C OMPLE TE BLD COUNT W/DIF F mean red cell hemoglobin 31.7 pg 27.0-3 3.0 Not Available [facility] (Lab) [address] [place], [address], 08/06/2023 20:28:05 08/06/19 24 08/06/2023 CBC/C OMPLE TE BLD COUNT W/DIF F mean RBC HGB concentratio n 31.9 g/dL 31.0-3 6.0 Not Available [facility] (Lab) [address] [place], [address], 08/06/2023 20:28:05 08/06/19 24 08/06/2023 CBC/C OMPLE TE BLD COUNT W/DIF F red cell distribution width 14.4 % 11.8-1 5.5 Not Available [facility] (Lab) [address] [place], [address], 08/06/2023 20:28:05 08/06/19 24 08/06/2023 CBC/C OMPLE TE BLD COUNT W/DIF F platelets 298 x10'3 /uL 150-40 0 Not Available [facility] (Lab) [address] [place], [address], 08/06/2023 20:28:05 08/06/19 24 08/06/2023 CBC/C OMPLE TE BLD COUNT W/DIF F mean platelet volume 10.9 fL 9.0-12 .4 Not Available [facility] (Lab) [address] [place], [address], 08/06/2023 20:28:05 08/06/19 24 08/06/2023 CBC/C OMPLE TE BLD COUNT W/DIF F neutrophils 78.2 % 39.0-7 2.0 high Not Available [facility] (Lab) [address] [place], [address], 08/06/2023 20:28:05 08/06/19 24 08/06/2023 CBC/C OMPLE TE BLD COUNT W/DIF F lymphocytes 11.5 % 16.0-4 7.0 low Not Available [facility] (Lab) [address] [place], [address], 08/06/2023 20:28:05 08/06/19 24 08/06/2023 CBC/C OMPLE TE BLD COUNT W/DIF F monocytes 6.7 % 5.0-12 .0 Not Available [facility] (Lab) [address] [place], [address], 08/06/2023 20:28:05 08/06/19 24 08/06/2023 CBC/C OMPLE TE BLD COUNT W/DIF F eosinophils 2.7 % 1.0-7. 0 Not Available [facility] (Lab) [address] [place], [address], 08/06/2023 20:28:05 08/06/19 24 08/06/2023 CBC/C OMPLE TE BLD COUNT W/DIF F basophils 0.3 % 0.0-2. 0 Not Available [facility] (Lab) [address] [place], [address], 08/06/2023 20:28:05 08/06/19 24 08/06/2023 CBC/C OMPLE TE BLD COUNT W/DIF F immature granulocytes 0.6 % 0.00-0 .50 high Not Available [facility] (Lab) [address] [place], [address], 08/06/2023 20:28:05 08/06/19 24 08/06/2023 CBC/C OMPLE TE BLD COUNT W/DIF F neutrophils, absolute count 7.83 x10'3 /uL 1.5-8. 0 Not Available [facility] (Lab) [address] [place], [address], 08/06/2023 20:28:05 08/06/19 24 08/06/2023 CBC/C OMPLE TE BLD COUNT W/DIF F lymphocytes, absolute count 1.15 x10'3 /uL 1.07-3 .43 Not Available [facility] (Lab) [address] [place], [address], 08/06/2023 20:28:05 08/06/19 24 08/06/2023 CBC/C OMPLE TE BLD COUNT W/DIF F monocytes, absolute count 0.67 x10'3 /uL 0.29-0 .99 Not Available [facility] (Lab) [address] [place], [address], 08/06/2023 20:28:05 08/06/19 24 08/06/2023 CBC/C OMPLE TE BLD COUNT W/DIF F eosinophils, absolute count 0.27 x10'3 /uL 0.02-0 .53 Not Available [facility] (Lab) [address] [place], [address], 08/06/2023 20:28:05 08/06/19 24 08/06/2023 CBC/C OMPLE TE BLD COUNT W/DIF F basophils, absolute count 0.03 x10'3 /uL 0.01-0 .08 Not Available [facility] (Lab) [address] [place], [address], 08/06/2023 20:28:05 08/06/19 24 08/06/2023 CBC/C OMPLE TE BLD COUNT W/DIF F immature granulocytes ,absolute 0.06 x10'3 /uL 0.00-0 .05 high Not Available [facility] (Lab) [address] [place], [address], 08/06/2023 20:28:05 08/06/19 24 08/06/2023 CBC/C OMPLE TE BLD COUNT W/DIF F nucleated red blood cells 0.0 % -0 Not Available [facility] (Lab) [address] [place], [address], 08/06/2023 20:28:05 08/06/19 24 08/06/2023 CBC/C OMPLE TE BLD COUNT W/DIF F NRBC# 0.00 x10'3 /uL Not Available [facility] (Lab) [address] [place], [address], 08/06/2023 20:28:05 08/06/19 24 08/06/2023 PROTE IN URINE RANDO M ur prot 10 mg/dL 0.0-11 .9 Not Available [facility] (Lab) [address] [place], [address], 08/06/2023 20:34:54 08/06/19 24 08/06/2023 IRON/ TIBC PANEL total iron binding capacity 260 mcg/d L 265-47 5 low Not Available [facility] (Lab) [address] [place], [address], 08/06/2023 20:40:29 08/06/19 24 08/06/2023 IRON/ TIBC PANEL % transferrin saturation 33 % 20-55 Not Available [facility] (Lab) [address] [place], [address], 08/06/2023 20:40:29 08/06/19 24 08/06/2023 IRON/ TIBC PANEL unsaturated iron bind capacity 175 mcg/d L 126-38 2 Not Available [facility] (Lab) [address] [place], [address], 08/06/2023 20:40:29 08/06/19 24 08/06/2023 IRON/ TIBC PANEL iron 85 mcg/d L 42-175 Not Available [facility] (Lab) [address] [place], [address], 08/06/2023 20:40:29 08/06/19 24 08/06/2023 LIPID PANEL cholesterol 157 mg/dL 140-19 9 NIH ERIC NSUS RECOM MENDA TION FOR ATIYA STERO L: ADULT CHILD LOW RISK: <200 <170 BORDE RLINE : <200- 239 ----- HIGH RISK: >240 >200 Not Available [facility] (Lab) [address] [place], [address], 08/06/2023 20:38:57 08/06/19 24 08/06/2023 LIPID PANEL triglyceride s 251 mg/dL 0-150 high NIH ERIC NSUS REPOR T RECOM MENDA TION FOR TRIGL YCERI RASHEED: ADULT CHILD LOW RISK: <150 ----- BODER LINE: 150-1 99 ----- HIGH RISK: >200 ----- Not Available [facility] (Lab) [address] [place], [address], 08/06/2023 20:38:57 08/06/19 24 08/06/2023 LIPID PANEL HDL cholesterol 40 mg/dL 40- Not Available [facility] (Lab) [address] [place], [address], 08/06/2023 20:38:57 08/06/19 24 08/06/2023 LIPID PANEL LDL cholesterol, calculated 67 mg/dL 0-130 NIH ERIC NSUS REPOR T RECOM MENDA TIONS FOR LDL: ADULT CHILD LOW RISK <130 <110 (OPTI MAL LDL) <100 ----- BORDE RLINE : 130-1 59 ----- HIGH RISK: >160 >130 A TRIGL YCERI DE RESUL T >400 INVAL IDATE S THE CALCU LATIO N FOR LDL FRACT IONAT ION - THE LDL RESUL T WILL NOT BE REPOR ELEAZAR. Not Available [facility] (Lab) [address] [place], [address], 08/06/2023 20:38:57 08/06/19 24 08/06/2023 URIC ACID SERUM uric acid 5.2 mg/dL 2.5-6. 2 Not Available [facility] (Lab) [address] [place], [address], 08/06/2023 20:38:59 08/06/19 24 08/06/2023 COMP MET PANEL /LIVE R sodium 136 mmol/ L 137-14 5 low Not Available [facility] (Lab) [address] [place], [address], 08/06/2023 20:39:24 08/06/19 24 08/06/2023 COMP MET PANEL /LIVE R potassium 6.0 mmol/ L 3.5-5. 1 high Not Available [facility] (Lab) [address] [place], [address], 08/06/2023 20:39:24 08/06/19 24 08/06/2023 COMP MET PANEL /LIVE R chloride 109 mmol/ L 98-107 high Not Available [facility] (Lab) [address] [place], [address], 08/06/2023 20:39:24 08/06/19 24 08/06/2023 COMP MET PANEL /LIVE R carbon dioxide 17 mmol/ L 22-30 low Not Available [facility] (Lab) [address] [place], [address], 08/06/2023 20:39:24 08/06/19 24 08/06/2023 COMP MET PANEL /LIVE R anion gap 16.0 mmol/ L 14-22 Not Available [facility] (Lab) [address] [place], [address], 08/06/2023 20:39:24 08/06/19 24 08/06/2023 COMP MET PANEL /LIVE R glucose 132 mg/dL 70-99 high Not Available [facility] (Lab) [address] [place], [address], 08/06/2023 20:39:24 08/06/19 24 08/06/2023 COMP MET PANEL /LIVE R BUN 48 mg/dL 8-19 high Not Available [facility] (Lab) [address] [place], [address], 08/06/2023 20:39:24 08/06/19 24 08/06/2023 COMP MET PANEL /LIVE R creatinine 2.32 mg/dL 0.66-1 .25 high Not Available [facility] (Lab) [address] [place], [address], 08/06/2023 20:39:24 08/06/19 24 08/06/2023 COMP MET PANEL /LIVE R GFR 21 Refer ence Range : [place] ge GFR Healt hy Adult : >60 mL/mi n/1.7 3 m2 Chron ic Kidne y Disea se: 15-60 mL/mi n/1.7 3 m2 Kidne y Failu re: <15/m L/min /1.73 m2 www.n iddk. nih.g ov The MDRD study equat ion has not been valid ated in child saud <18 years of age; pregn ant women ; the elder ly >85 years of age; or in some racia l or ethni c subgr oups, such as Hispa nics. Outsi de the valid ated cruz eters , estim ated GFR is less accur ate, requi ring clini pablo judgm ent on a case- by-ca se basis . Clini pablo inter preta tion for other races and ages must be made by the clini eleazar. The MDRD study equat ion has not been valid ated for the evalu ation of serum creat inine relat ed to nutri lonny l statu s or medic ation usage . For perso ns <18 years of age, a pedia tric GFR calcu lator is avail able on the [facility] websi te: https ://aditi w.wolf cole.o rg/pr rileyess ional s/kdo qi/gf r_cal culat or Not Available [facility] (Lab) [address] [place], [address], 08/06/2023 20:39:24 08/06/1908/06/2023 COMP MET PANEL /LIVE R alkaline phosphatase 77 U/L 38-126 Not Available [facility] (Lab) [address] [place], [address], 08/06/2023 20:39:24 08/06/19 24 08/06/2023 COMP MET PANEL /LIVE R alanine aminotransfe rase 16 U/L 0-35 Not Available [facility] (Lab) [address] [place], [address], 08/06/2023 20:39:24 08/06/19 24 08/06/2023 COMP MET PANEL /LIVE R aspartate aminotransfe rase 21 U/L 15-37 Not Available [facility] (Lab) [address] [place], [address], 08/06/2023 20:39:24 08/06/19 24 08/06/2023 COMP MET PANEL /LIVE R bilirubin, total 0.40 mg/dL 0.20-1 .30 Not Available [facility] (Lab) [address] [place], [address], 08/06/2023 20:39:24 08/06/19 24 08/06/2023 COMP MET PANEL /LIVE R bilirubin, conjugated (direct) 0.00 mg/dL 0.00-0 .30 Not Available [facility] (Lab) [address] [place], [address], 08/06/2023 20:39:24 08/06/19 24 08/06/2023 COMP MET PANEL /LIVE R biliurubin,u ncong. (indirect) 0.20 mg/dL 0.00-1 .1 Not Available [facility] (Lab) [address] [place], [address], 08/06/2023 20:39:24 08/06/19 24 08/06/2023 COMP MET PANEL /LIVE R calcium 9.5 mg/dL 8.4-10 .2 Not Available [facility] (Lab) [address] [place], [address], 08/06/2023 20:39:24 08/06/19 24 08/06/2023 COMP MET PANEL /LIVE R total protein 6.7 g/dL 6.3-8. 2 Not Available [facility] (Lab) [address] [place], [address], 08/06/2023 20:39:24 08/06/19 24 08/06/2023 COMP MET PANEL /LIVE R albumin 4.4 g/dL 3.0-4. 4 Not Available [facility] (Lab) [address] [place], [address], 08/06/2023 20:39:24 08/06/19 24 08/06/2023 COMP MET PANEL /LIVE R globulin 2.3 g/dL 2.6-4. 2 low Not Available [facility] (Lab) [address] [place], [address], 08/06/2023 20:39:24 08/06/19 24 08/06/2023 COMP MET PANEL /LIVE R A/G ratio 1.9 ratio 1.0-2. 0 Not Available [facility] (Lab) [address] [place], [address], 08/06/2023 20:39:24 08/06/19 24 08/06/2023 PHOSP HORUS phosphorus 4.7 mg/dL 2.5-4. 5 high Not Available [facility] (Lab) [address] [place], [address], 08/06/2023 20:39:28 08/06/19 24 08/06/2023 PARAT HY.HO RM(PT H)INT ACT-W /O CA intact parathyroid hormone 89.6 pg/mL 24.0-7 8.0 high Pleas e note new refer ence range effec tive 04/27 . Not Available [facility] (Lab) [address] [place], [address], 08/06/2023 20:41:41 08/06/19 24 08/06/2023 VITAM IN D 25-HY DROXY vd25oh 73.8 NG/mL 30-100 Vitam in D Statu s: Defic ient: <20 ng/mL Insuf ficie nt: 20-29 ng/mL Suffi cient : 30-10 0 ng/mL Not Available [facility] (Lab) [address] [place], [address], 08/06/2023 20:45:55 08/06/19 24 08/06/2023 T4 FREE free T4 1.07 NG/dL 0.78-2 .19 Not Available [facility] (Lab) [address] [place], [address], 08/06/2023 20:49:42 08/06/19 24 08/06/2023 TSH thyroid-stim ulating hormone 2.890 uIU/m L 0.465- 4.680 Not Available [facility] (Lab) [address] [place], [address], 08/06/2023 21:02:31 08/06/19 24 08/06/2023 PATRICIA TIN ferritin 148 NG/mL 11.1-2 64 Not Available [facility] (Lab) [address] [place], [address], 08/06/2023 21:09:42 08/06/19 24 08/06/2023 HEMOG LOBIN A1C HA1C 6.9 % 4.0-6. 0 high Diabe clif Scree los Crite lindy: <5.7% Consi stent with absen ce of diabe clif 5.7-6 .4% Consi stent with incre ased risk for diabe clif (pred iabet es) >OR=6 .5% Consi stent with diabe clif REFER ENCE: Diabe clif Care 2015, 39(Woody ppl.1 ):s13 -s22 Not Available [facility] (Lab) [address] [place], [address], 08/06/2023 21:14:10 08/06/19 24 08/06/2023 SEDIM ENTAT ION RATE erythrocyte sedimentatio n rate 67 mm/HR 0-20 high Not Available [facility] (Lab) [address] [place], [address], 08/06/2023 21:47:07 11/15/19 23 11/01/2022 CT, sinus es, w/o contr ast No observ ation record ed. [address], [place], [address], 11/14/2022 14:14:11 12/15/19 audio gram + tympa nogra m No observ ation record ed. [email or web address] [facility] [address] [facility] [address] [place], [address], 12/17/2022 08:34:14 01/01/20 23 05/28/2018 audio gram No observ ation record ed. [email or web address] [facility] [address] [facility] [address], [place], [address], 12/31/2022 14:41:49 05/06/19 24 05/06/2023 MAMMO , scree los, bilat eral No observ ation record ed. [address] [facility], [place], [address], 08/06/2023 15:31:58 08/08/19 24 08/08/2023 XR, hip + pelvi s, unila teral No observ ation record ed. [address], [place], [address], 08/13/2023 11:48:32 08/08/19 24 08/08/2023 XR, lumba r spine No observ ation record ed. [address] [address], [place], [address], 08/13/2023 11:48:33 08/14/19 24 08/14/2023 DEXA No observ ation record ed. [email or web address] [address], [place], [address], 08/15/2023 14:48:57 04/05/19 25 04/04/2024 XR, chest , 1 view No observ [facility]ion [facility] ed. [email or web address] [address] [address], [place], [address], 04/07/2024 09:34:45 04/06/19 25 04/06/2024 US, bladd er No observ ation record ed. [address] [address], [place], [address], 04/07/2024 09:34:59 04/07/19 25 04/06/2024 US, renal No observ ation record ed. [email or web address] [address], [place], [address], 04/07/2024 23:05:39 04/08/19 25 04/08/2024 imagi ng/di agnos tic resul t No observ ation record ed. [address] [address], [place], [address], 04/08/2024 09:44:04 04/08/19 25 04/08/2024 imagi ng/di agnos tic resul t No observ ation record ed. [address] [address], [place], [address], 04/08/2024 18:15:28 04/10/19 25 04/10/2024 imagi ng/di agnos tic resul t No observ ation record ed. [address] [address], [place], [address], 04/10/2024 09:42:28 Result Notes None recorded. Problems Name Problem SNOMED Code Status Onset Date Resolution Date Notes Provider Name and Address Organization Details Recorded Time Hyponatre [facility] 42999035 Active 2022 Flex Tompkins MD [address], [address], [place], [address] , [place] [facility] 3 17:39:01 Serotonin syndrome 918759967 Active 2022 Flex Tompkins MD [address], [place], [address] , [place] [facility] 3 08:36:46 Degenerat ion of cervical intervert ebral disc 52961475 Active 2022 Flex Tompkins MD [address], [address], [place], [address] , [place] [facility] 3 08:37:29 Dysfuncti on of left eustachia n tube 57749238678 31701 Active 2022 Flex Tompkins MD [address], [place], [address] , [facility] 3 14:51:33 Dizziness 436575057 Active 2022 Flex Tompkins MD [address], [place], [address] , [facility] 3 14:24:25 Gout 05972155 Active 2022 Flex Tompkins MD [address], [place], [address] , [place] [facility] 3 14:25:32 Chronic sinusitis 48630011 Active 2022 Noah Rodrigues MD [address], [facility] [address], [place], [address] , [facility] 3 15:46:10 Sensorine ural hearing loss 99957501 Active 2022 Sherrie Rosas RN null, [facility] 3 15:16:32 Benign paroxysma l positiona l vertigo 495816393 Active 2022 Sherrie Rosas RN null, [facility] 3 15:17:40 Benign paroxysma l positiona l vertigo 386652517 Active 2022 Noah Rodrigues MD [address] [address], [place], [address] , [facility] 3 15:22:05 Degenerat ion of lumbar intervert ebral disc 46521937 Active 2023 Flex Tompkins MD [address] [address], [place], [address] , [facility] 4 15:51:27 Pain of left hip joint [id number] 9100 Active 2023 Flex Tompkins MD [address] [facility] [address], [place], [address] , [facility] 4 15:51:36 Eruption 599422802 Active 2023 Flex Tompkins MD [address] [address], [place], [address] , [facility] 4 15:52:42 Lumbar spondylos is 443117105 Active 2023 Flex Tompkins MD [address] [address], [place], [address] , [facility] 4 11:49:02 Osteopeni a 647551291 Active 2023 DEXA 08/22 Flex Tompkins MD [address] [address], [place], [address] , [facility] 4 07:44:45 Paronychi a of toe of right foot [id number] 417720 Active 2021 Not Available [facility] 3 00:51:28 Benign essential hypertens ion 7185473 Active Not Available [facility] 3 00:51:28 Chronic obstructi ve pulmonary disease 27182943 Active 2018 Not Available [facility] 3 00:51:28 Hyperkale tay 09350244 Active Not Available [facility] 3 00:51:28 Serum creatinin e outside reference range 384478605 Active Not Available [facility] 3 00:51:28 Raynaud's disease 255340049 Active 2018 Not Available [facility] 3 00:51:28 Fibromyal anahi 904378414 Active 2018 Not Available [facility] 3 00:51:28 Abdominal pain 94829685 Active Not Available [facility] 3 00:51:28 Perineal pain 795500999 Active Not Available [facility] 3 00:51:28 Sciatica 02455130 Active Not Available [facility] 3 00:51:28 Pneumonia 144706821 Active Not Available [facility] 3 00:51:28 Glaucoma 84667091 Active Not Available [facility] 3 00:51:29 Anemia 591260907 Active Not Available [facility] 3 00:51:29 Hyposmola lity 170696145 Active 2018 Not Available [facility] 3 00:51:29 Ferrell's esophagus 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 Active Last EGD 2 Not Available [facility] 3 00:51:29 Type 2 diabetes mellitus without complicat ion 860799913 Active Not Available [facility] 3 00:51:29 Hyperthyr oidism 84356988 Active Not Available [facility] 3 00:51:29 Depressiv e disorder 99514866 Active Not Available [facility] 3 00:51:29 Ulnar neuropath y 833048262 Active 2018 Not Available [facility] 3 00:51:29 Multiple bruising 727579327 Active Not Available [facility] 3 00:51:29 Migraine 31985172 Active Not Available [facility] 3 00:51:29 Osteoarth ritis 159245252 Active Not Available [facility] 3 00:51:29 Onychomyc osis of toenails 928356757 Active 2021 Not Available [facility] 3 00:51:29 Hypothyro idism 19656568 Active Not Available [facility] 3 00:51:29 Blood leukocyte number above reference range 546503130 Active Not Available [facility] 3 00:51:30 Nonexudat shakir age-relat ed macular degenerat ion 961306993 Active Not Available [facility] 3 00:51:30 Temporoma ndibular joint disorder 09054808 Active Not Available [facility] 3 00:51:30 Degenerat shakir disorder of macula 235871219 Active Not Available [facility] 3 00:51:30 Nausea 306608180 Active 2021 Not Available [facility] 3 00:51:30 Chronic kidney disease stage 3 546784261 Active 2018 Not Available [facility] 3 00:51:30 Disorder of kidney and/or ureter 533442719 Completed Not Available [facility] 3 00:51:30 Sprain of ankle 59188677 Active Not Available [facility] 3 00:51:30 Hyperlipi demia 73352069 Active Not Available [facility] 3 00:51:30 Essential hypertens ion 02323798 Active Not Available [facility] 3 00:51:30 Polyp of colon 01428724 Active Not Available [facility] 3 00:51:31 Diabetes mellitus 58320884 Active Not Available [facility] 3 00:51:31 Cardiomeg sreekanth 9113590 Active Not Available [facility] 3 00:51:31 Iron deficienc y anemia 84893826 Active Not Available [facility] 3 00:51:31 Systemic sclerosis 30691644 Active Not Available [facility] 3 00:51:31 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 Procedures Surgical History Date Name Laterality Status Provider Name and Address Organization Details Recorded Time 08/05 Medicare Wellness CPT Code, subsequent completed Selina Cardoso RN [facility] [address] [facility] 4 15:22:03 05/30 Transitional_Care_Managemen t completed Darlene Salazar MA [place] [employer] 3 17:29:23 12/25 esophagogastroduodenoscopy completed Not Available [facility] 3 00:44:33 Orthopedic Surgery completed Not Available [facility] 3 00:44:33 tooth extraction completed Not Available [facility] 3 00:44:33 Tonsillectomy completed Not Available [facility] 3 00:44:33 colonoscopy completed Not Available [facility] 3 00:44:33 Carpal tunnel surgery completed Not Available [facility] 3 00:44:33 Rotator cuff surgery completed Not Available [facility] 3 00:44:33 Imaging Results Imaging Date Name Status LastModified by Organ [facility] Details LastModified Time 11/01/2022 CT, sinuses, w/o contrast completed [address] [facility], [place], [address], 11/14/2022 14:14:11 12/14/2022 audiogram + tympanogram completed [email or web address] [facility] [address], [place], [address], 12/17/2022 08:34:14 05/28/2018 audiogram completed [email or web address] [facility] [address], [place], [address], 12/31/2022 14:41:49 05/06/2023 MAMMO, screening, bilateral completed [address] [facility], [place], [address], 08/06/2023 15:31:58 08/08/2023 XR, hip + pelvis, unilateral completed [address] [facility], [place], [address], 08/13/2023 11:48:32 08/08/2023 XR, lumbar spine completed [address] [address], [place], [address], 08/13/2023 11:48:33 08/14/2023 DEXA completed [email or web address] [address], [place], [address], 08/15/2023 14:48:57 04/04/2024 XR, chest, 1 view completed [address] [address], [place], [address], 04/07/2024 09:34:45 04/06/2024 US, bladder completed [address] [address], [place], [address], 04/07/2024 09:34:59 04/06/2024 US, renal completed [email or web address] [address], [place], [address], 04/07/2024 23:05:39 04/08/2024 imaging/diagnos tic result active [address] [address], [place], [address], 04/08/2024 09:44:04 04/08/2024 imaging/diagnos tic result active [address] [address], [place], [address], 04/08/2024 18:15:28 04/10/2024 imaging/diagnos tic result active [address], [address], 04/10/2024 09:42:28 Procedure Notes None recorded. Medical Equipment None Reported. Allergies Allergen ID Allergen Name Allergen Category Reaction Reaction Severity Criticality Documentation Date Start Date Code Code System Note Provider Name and Address Organization Details Recorded Time 951 Urecholin e medicatio n Not available Not available Not available 05/30/2022 38922 RxNorm Not Available [facility] 3 00:57:51 952 Travatan medicatio n Not available Not available Not available 05/30/2022 39780 6 RxNorm Not Available [facility] 3 00:57:51 953 Substance with sulfonami de structure and antibacte rial mechanism of action (substanc e) medicatio n Not available Not available Not available 05/30/2022 30756 8003 SNOMED Not Available [facility] 3 00:57:51 954 sulfameth oxazole / trimethop rim medicatio n Not available Not available Not available 05/30/2022 51668 RxNorm Not Available [facility] 3 00:57:51 955 Prozac medicatio n Not available Not available Not available 05/30/2022 83139 RxNorm Not Available [facility] 3 00:57:51 956 Ocuvite Lutein medicatio n Not available Not available Not available 05/30/2022 99980 5 RxNorm Not Available [facility] 3 00:57:51 957 Naprosyn medicatio n hives severe Not available 05/30/202220291 2 RxNorm Not Available [facility] 3 00:57:51 958 latex environme nt,medica tion Not available Not available Not available 05/30/2022 13657 91 RxNorm Not Available [facility] 3 00:57:51 959 cyclobenz aprine hydrochlo ride medicatio n Not available Not available Not available 05/30/2022 83667 RxNorm Not Available [facility] 3 00:57:52 960 egg extract food,medi cation Not available Not available Not available 05/30/2022 29080 15 RxNorm Not Available [facility] 3 00:57:52 961 Demerol medicatio n Not available Not available Not available 05/30/2022 12524 1 RxNorm Not Available [facility] 3 00:57:52 Medications Name Sig Start Date Stop Date Status Note LastModified by Organization Details LastModified Time amoxicilli n 500 mg capsule TK 1 C PO Q 6 H TAT active Not Available Not Available No t Available latanopros t 0.005 % eye drops INSTILL 1 DROP IN BOTH EYES EVERY NIGHT AT BEDTIME active Not Available Not Available No t Available carvedilol 6.25 mg tablet TAKE 1 TABLET BY MOUTH TWICE DAILY active Not Available Not Available No t Available prednisone 10 mg tablet active Not Available Not Available Not Available carvedilol 12.5 mg tablet TAKE 1 TABLET BY MOUTH TWICE DAILY active Not Available Not Available No t Available citalopram 40 mg tablet TAKE 1 TABLET BY MOUTH DAILY active Not Available Not Available No t Available pravastati n 40 mg tablet TAKE 1 TABLET BY MOUTH DAILY active Not Available Not Available No t Available ranitidine 300 mg tablet active Not Available Not Available Not Available ondansetro n HCl 8 mg tablet Take 1 tablet as needed by oral route before meals for 10 days. 08/06 completed Not Available Not Available Not Available lisinopril 20 mg tablet TAKE 1 TABLET BY MOUTH DAILY active Not Available Not Available No t Available prednisone 20 mg tablet Take 2 tablets every day by oral route for 5 days. active Not Available Not Available No t Available venlafaxin e ER 150 mg capsule,ex tended release 24 hr Take 1 capsule every day by oral route. active Not Available Not Available No t Available acetaminop hen 300 mg-codeine 30 mg tablet 09/21 completed Not Available Not Available Not Available allopurino l 100 mg tablet TAKE 1 TABLET BY MOUTH EVERY DAY active Not Available Not Available No t Available Reglan 10 mg tablet Take 1 tablet every day by oral route. 12/19 completed Not Available Not Available Not Available tramadol 50 mg tablet TAKE TWO TABLETS BY MOUTH EVERY 8 HOURS NEEDED 08/06 completed Not Available Not Available Not Available bupropion HCl SR 100 mg tablet,12 hr sustained- release Take 1 tablet by mouth twice daily active Not Available Not Available No t Available glimepirid e 1 mg tablet TAKE 2 TABLETS BY MOUTH DAILY IN THE MORNING active Not Available Not Available No t Available nystatin-t riamcinolo ne 100,000 unit/gram- 0.1 % topical ointment APPLY TO THE AFFECTED AREA(S) BY TOPICAL ROUTE 2 TIMES PER DAY x 7 days active Not Available Not Available No t Available nortriptyl ine 25 mg capsule 1 po qhs 09/21 completed Not Available Not Available Not Available ciclopirox 8 % topical solution 12/20 completed Not Available Not Available Not Available oxycodone- acetaminop hen 5 mg-325 mg tablet TAKE 1 TABLET BY MOUTH EVERY 4 TO 6 HOURS NEEDED FOR PAIN 11/28 completed Not Available Not Available Not Available bupropion HCl 100 mg tablet 11/11 completed Not Available Not Available Not Available alprazolam 0.5 mg tablet TAKE ONE TABLET BY MOUTH TWICE DAILY NEEDED 06/30 completed Not Available Not Available Not Available Azopt 1 % eye drops,susp ension 06/30 completed Not Available Not Available Not Available famotidine 20 mg tablet Take 1 tablet every 12 hours by oral route for 30 days. 08/06 completed Not Available Not Available Not Available metoclopra mide 5 mg tablet 11/11 completed Not Available Not Available Not Available meclizine 25 mg tablet 1 po tid prn active Not Available Not Available No t Available timolol maleate 0.25 % eye drops 09/21 completed Not Available Not Available Not Available pantoprazo le 40 mg tablet,del ayed release 1 po qday 2023 active Not Available Not Available Not Avai lable erythromyc in 5 mg/gram (0.5 %) eye ointment 02/28 completed Not Available Not Available Not Available metformin 1,000 mg tablet TAKE ONE TABLET BY MOUTH TWICE DAILY 09/21 completed Not Available Not Available Not Available triamcinol one acetonide 0.1 % topical ointment APPLY THIN LAYER TOPICALL Y TO THE AFFECTED AREA TWICE DAILY active Not Available Not Available No t Available ranitidine 300 mg capsule Take 1 capsule every day by oral route. 09/21 completed Not Available Not Available Not Available lisinopril 10 mg tablet Take 1 tablet every day by oral route. active Not Available Not Available No t Available bupropion HCl 75 mg tablet TAKE ONE TABLET BY MOUTH EVERY MORNING 06/30 completed Not Available Not Available Not Available methimazol e 5 mg tablet 1 tab 2x per week active Dr. Gallardo Not Available Not Available Not Available gabapentin 300 mg capsule TAKE 1 CAPSULE BY MOUTH EVERY NIGHT AT BEDTIME active Not Available Not Available No t Available timolol 0.25 % eye drops Instill 1 drop twice a day by ophthalm ic route. 2012 active Not Available Not Available Not Avai lable omeprazole 20 mg capsule,de layed release TAKE ONE CAPSULE BY MOUTH ONCE DAILY 06/30 completed Not Available Not Available Not Available zolpidem 5 mg tablet 1 po qhs prn insomnia active Not Available Not Available No t Available furosemide 20 mg tablet TAKE 1 TABLET BY MOUTH EVERY OTHER DAY active Not Available Not Available No t Available metoprolol succinate ER 25 mg tablet,ext ended release 24 hr TAKE ONE TABLET BY MOUTH ONE TIME DAILY 06/30 completed Not Available Not Available Not Available levofloxac in 750 mg tablet Take 1 tablet every day by oral route as needed. active Not Available Not Available No t Available zolpidem 10 mg tablet 1 po qhs 06/30 completed Not Available Not Available Not Available methylpred nisolone 4 mg tablets in a dose pack FOLLOW PACKAGE DIRECTIO NS 12/06 completed Not Available Not Available Not Available albuterol sulfate HFA 90 mcg/actuat ion aerosol inhaler Inhale 2 puffs every 4 hours by inhalati on route. 09/21 completed Not Available Not Available Not Available Vitamin D2 1,250 mcg (50,000 unit) capsule TAKE ONE CAPSULE BY MOUTH WEEKLY 06/30 completed Not Available Not Available Not Available ketoconazo le 2 % topical cream APPLY TO THE AFFECTED AREA DAILY 08/06 completed Not Available Not Available Not Available ondansetro n 4 mg disintegra ting tablet DISSOLVE ONE TABLET BY MOUTH EVERY 6 HOURS NEEDED FORNAUSE A AND VOMITING active Not Available Not Available No t Available cefdinir 300 mg capsule TAKE 1 CAPSULE BY MOUTH EVERY 12 HOURS FOR 10 DAYS 12/06 completed Not Available Not Available Not Available fluticason e propionate 50 mcg/actuat ion nasal spray,susp ension 2 sprays IEN daily 2022 active Not Available Not Available Not Avai lable lisinopril 2.5 mg tablet Take 1 tablet twice a day by oral route for 90 days. 06/30 completed Not Available Not Available Not Available calcitriol 0.25 mcg capsule TAKE ONE CAPSULE BY MOUTH 3 TIMES A WEEK ON SATURDAY, , SATURDAY active Not Available Not Available No t Available amoxicilli n 875 mg-potassi um clavulanat e 125 mg tablet 02/28 completed Not Available Not Available Not Available ciclopirox 0.77 % topical gel APPLY TO THE AFFECTED AND SURROUND ING AREAS OF toenail and SKIN BY TOPICAL ROUTE 2 TIMES PER DAY IN THE MORNING AND EVENING 12/20 completed Not Available Not Available Not Available oxycodone 5 mg tablet 02/28 completed Not Available Not Available Not Available escitalopr am 10 mg tablet 1 po qday active Not Available Not Available No t Available escitalopr am 20 mg tablet TAKE 1 TABLET BY MOUTH EVERY DAY 08/06 completed Not Available Not Available Not Available aripiprazo le 5 mg tablet Take 1 tablet every day by oral route. active Not Available Not Available No t Available omeprazole 20 mg oral packet 2012 active Not Available Not Available Not Michael jackson PreserVisi on AREDS bid 12/20 completed Not Available Not Available Not Available sodium chloride 1,000 mg soluble tablet TAKE 1 TABLET BY MOUTH EVERY DAY 08/06 completed Not Available Not Available Not Available quetiapine 50 mg tablet 08/06 completed Not Available Not Available Not Available ProAir HFA 2 puffs q 4-6 hours prn 09/21 completed Not Available Not Available Not Available quetiapine ER 200 mg tablet,ext ended release 24 hr TAKE 1 TABLET BY MOUTH ONCE DAILY AT BEDTIME 08/06 completed Not Available Not Available Not Available Combigan 0.2 %-0.5 % eye drops 06/30 completed Not Available Not Available Not Available metformin ER 1,000 mg 24 hr tablet,ext ended release (gastric reten.) Take 1 tablet twice a day by oral route. 2012 active Not Available Not Available Not Avai [facility] quetiapine ER 50 mg tablet,ext ended release 24 hr TAKE 2 TABLETS BY MOUTH EVERY NIGHT AT BEDTIME active Not Available Not Available No t Available quetiapine ER 150 mg tablet,ext ended release 24 hr TAKE 1 TABLET BY MOUTH EVERY DAY AT BEDTIME 08/12 completed Not Available Not Available Not Available Vitamin D3 50 mcg (2,000 unit) capsule Take 1 capsule every day by oral route. active Not Available Not Available No t Available Tradjenta 5 mg tablet Take 1 tablet every day by oral route at noon for 30 days. 04/26 completed Not Available Not Available Not Available vilazodone 40 mg tablet Take 1 tablet every day by oral route. 02/12 completed Not Available Not Available Not Available OneTouch Verio test strips TEST ONCE DAILY active Not Available Not Available No t Available Trintellix 10 mg tablet Take 1 tablet every day by oral route. 01/12 completed Not Available Not Available Not Available Trintellix 20 mg tablet Take 1 tablet every day by oral route. 01/14 completed Not Available Not Available Not Available Shingrix (PF) 50 mcg/0.5 mL intramuscu lar suspension , kit PHARMACI ST ADMINIST ERED IMMUNIZA TION ADMINIST ERED AT TIME OF DISPENSI NG 12/20 completed Not Available Not Available Not Available Bydureon BCise 2 mg/0.85 mL subcutaneo us auto-injec tor INJECT 2 MG( 0.85 ML) UNDER THE SKIN EVERY WEEK 07/11 completed Not Available Not Available Not Available latanopros t (PF) 0.005 % eye drops 1 drop in each eye bid 12/06 completed Not Available Not Available Not Available OneTouch Delica Plus Lancet 33 gauge active Not Available Not Available Not Available Fluzone High-Dose (PF) 180 mcg/0.5 mL intramuscu lar syringe PHARMACI ST ADMINIST ERED IMMUNIZA TION ADMINIST ERED AT TIME OF DISPENSI NG active Not Available Not Available No t Available Fluzone High-Dose Quad (PF) 240 mcg/0.7 mL IM syringe ADM 0.7ML IM UTD active Not Available Not Available No t Available Ozempic 0.25 mg or 0.5 mg (2 mg/3 mL) subcutaneo us pen injector INJECT 0.5 MG SUBCUTAN EOUS EVERY WEEK active Not Available Not Available No t Available Vitals Date Recorded Body height Body mass index (BMI) Body weight Body temperature Provider Name and Address Organization Details Last Updated DateTime 12/06/2022 149.86 cm 29.9 kg/m2 80935.39 g 97.6 [degF] Sherrie Rosas RN [place] [facility] 12/06/2022 14:58:10 Date Recorded Body height Body mass index (BMI) Body weight Body temperature Heart rate Oxygen saturation Oxygen saturation in Arterial blood by Pulse oximetry Systolic blood pressure Diastolic blood pressure Provider Name and Address Organization Details Last Updated DateTime 3 149.86 cm 30.9 kg/m2 53049.6 3 g 98.2 [degF] 74 /min 97 % 97 % 128 mm[Hg] 60 mm[Hg] Selina Cardoso RN [facility] [employer] [facility] 3 15:27:51 Date Recorded Body height Body mass index (BMI) Body weight Body temperature Heart rate Oxygen saturation Oxygen saturation in Arterial blood by Pulse oximetry Systolic blood pressure Diastolic blood pressure Provider Name and Address Organization Details Last Updated DateTime 4 149.86 cm 31.1 kg/m2 75804.2 2 g 98.1 [degF] 72 /min 95 % 95 % 152 mm[Hg] 78 mm[Hg] SANTI Randhawa [facility] [employer] [facility] 4 15:25:17 Date Recorded Body height Body mass index (BMI) Body weight Body temperature Heart rate Oxygen saturation Oxygen saturation in Arterial blood by Pulse oximetry Systolic blood pressure Diastolic blood pressure Provider Name and Address Organization Details Last Updated DateTime 4 149.86 cm 31.3 kg/m2 91542.8 2 g 98.6 [degF] 66 /min 98 % 98 % 108 mm[Hg] 58 mm[Hg] Ashli Dc RN [facility] [employer] [facility] 4 14:20:11 Date Recorded Body height Body mass index (BMI) Body weight Body temperature Heart rate Oxygen saturation Oxygen saturation in Arterial blood by Pulse oximetry Systolic blood pressure Diastolic blood pressure Provider Name and Address Organization Details Last Updated DateTime 4 149.86 cm 29.5 kg/m2 70088.4 9 g 98.7 [degF] 92 /min 97 % 97 % 114 mm[Hg] 68 mm[Hg] Ashli Dc RN [facility] [employer] [facility] 4 16:06:09 Social History Question Answer Notes LastModified by Organizat ion Details LastModified Time Tobacco Smoking Status Never Smoker Not Available [facility] 05/30/2022 00:44:23 What Is Your Level Of Alcohol Consumption? Occasional [id number] Information not available 05/30/2022 Are You Blind Or Do You Have Difficulty Seeing? No [id number] Information not available 05/30/2022 What Is Your Level Of Caffeine Consumption? Moderate [id number] Information not available 05/30/2022 How Much Tobacco Do You Chew? None [id number] Information not available 05/30/2022 In The 14 Days Before Symptom Onset, Have You Had Close Contact With A Laboratory-confir med COVID-19 While That Case Was Ill? No [id number] Information not available 05/30/2022 In The 14 Days Before Symptom Onset, Have You Had Close Contact With A Person Who Is Under Investigation For COVID-19 While That Person Was Ill? No [id number] Information not available 05/30/2022 Are You Deaf Or Do You Have Serious Difficulty Hearing? No [id number] Information not available 05/30/2022 What Type Of Diet Are You Following? DIABETIC [id number] Information not available 05/30/2022 Which Illicit Or Recreational Drugs Have You Used? None [id number] Information not available 05/30/2022 Do You Or Have You Ever Used E-cigarettes Or Vape? Never Used Electronic Cigarettes [id number] Information not available 05/30/2022 What Is Your Occupation? Retired MIGRATION.[id number] 5609 Information not available 05/30/2022 What Was The Date Of Your Most Recent Tobacco Screening? 08/06/2023 Information not available 08/14/2023 Have You Ever Been Counseled For Unhealthy Alcohol Use? No [email or web address] Information not available 07/11/2022 Do You Use Your Seat Belt Or Car Seat Routinely? Yes MIGRATION.[id number] [id number] Information not available 05/30/2022 Do You Or Have You Ever Used Smokeless Tobacco? Never Used Smokeless Tobacco MIGRATION.780034 8450 Information not available 05/30/2022 Do You Use Any Illicit Or Recreational Drugs? No MIGRATION.396304 6001 Information not available 05/30/2022 Has Tobacco Cessation Counseling Been Provided? No MIGRATION.105707 9556 Information not available 05/30/2022 Have You Recently Traveled Abroad? No MIGRATION.584968 5059 Information not available 05/30/2022 Do You Or Have You Ever Used Any Other Forms Of Tobacco Or Nicotine? No MIGRATION.765574 9810 Information not available 05/30/2022 Sex: Female Functional Status Question Answer Note LastModified by Organizat ion Details LastModified Time Do you have difficulty walking or climbing stairs? No MIGRATION.4721585 026 Information not available 05/30/2022 Do you have transportation difficulties? No MIGRATION.[id number] 026 Information not available 05/30/2022 Are you able to walk? YESWOREST MIGRATION.1337072 026 Information not available 05/30/2022 Do you have difficulty doing errands alone? No MIGRATION.0774418 026 Information not available 05/30/2022 Are you able to care for yourself? Yes MIGRATION.5706019 026 Information not available 05/30/2022 Do you have difficulty dressing or bathing? No MIGRATION.1051564 026 Information not available 05/30/2022 Mental Status Question Answer Note LastModified by Organizat ion Details LastModified Time Do you have difficulty concentrating, remembering or making decisions? No MIGRATION.[id number] 6 Information not available 05/30/2022 Family History Relationship Description Onset Age of this Age Resolved Age Notes LastModified by Organization Details LastModified Time Maternal Grandmother Diabetes mellitus MIGRATION.136 [id number] Not available 05/30/2022 00:44:40 Mother Diabetes mellitus MIGRATION.424 [id number] Not available 05/30/2022 00:44:40 Mother Family history of stroke MIGRATION.564 [id number] Not available 05/30/2022 00:44:40 Mother Arthritis MIGRATION.222 [id number] Not available 05/30/2022 00:44:40 Mother Hypertensive disorder MIGRATION.993 [id number] Not available 05/30/2022 00:44:40 Mother Heart disease MIGRATION.124 [id number] Not available 05/30/2022 00:44:40 Brother Diabetes mellitus MIGRATION.657 2846766 Not available 05/30/2022 00:44:40 Brother Arthritis MIGRATION.283 [id number] Not available 05/30/2022 00:44:40 Brother Heart disease MIGRATION.292 [id number] Not available 05/30/2022 00:44:40 Sister Diabetes mellitus MIGRATION.125 [id number] Not available 05/30/2022 00:44:40 Sister Family history of stroke MIGRATION.165 [id number] Not available 05/30/2022 00:44:40 Sister Arthritis MIGRATION.456 [id number] Not available 05/30/2022 00:44:40 Sister Hypertensive disorder MIGRATION.332 [id number] Not available 05/30/2022 00:44:40 Sister Heart disease MIGRATION.529 [id number] Not available 05/30/2022 00:44:40 Father Arthritis MIGRATION.014 [id number] Not available 05/30/2022 00:44:40 Father Heart disease MIGRATION.764 [id number] Not available 05/30/2022 00:44:40 Unspecified Relation Family history of malignant neoplasm MIGRATION.282 [id number] Not available 05/30/2022 00:44:40 Notes:2 cousins breast cance r Medical History Condition Response COPD Y HIGH CHOLESTEROL / HYPERLIPIDEMIA Y DEPRESSION (INCLUDING POST ) Y BACK / NECK PROBLEMS Y OSTEOPOROSIS Y CORONARY ARTERY DISEASE (CAD) Y ARTHRITIS Y DIABETES, TYPE Y HEADACHES/MIGRAINES Y HYPERTENSION Y ANEMIA/BLOOD DISORDER Y Gynecological HistoryNo gynecological history recorded. Obstetrics History GPAL:G 0 P 0 0 0 0 Immunizations Vaccine Type Date Status Note Provider Nam e and Address Organization Details Recorded Time zoster recombinant 9 completed Magaly Terry APRN [address], [address], [place], [address], [employer] [facility] [employer] [facility] 12/05/2023 07:41:47 zoster recombinant 9 wilbur Terry APRN [address], [address], [place], [address], [employer] [facility] [employer] [facility] 12/05/2023 07:41:47 Influenza, high-dose, quadrivalent, PF 0 wilbur Terry APRN [address], [address], [place], [address], [employer] [facility] [employer] [facility] 12/05/2023 07:41:47 Influenza, high-dose, quadrivalent, PF 1 completed Magaly Terry APRN [address], [address], [place], [address], [employer] [facility] [employer] [facility] 12/05/2023 07:41:47 Influenza, high-dose, quadrivalent, PF 2 completed Magaly Terry APRN [address], [address], [place], [address], [facility] [employer] [facility] 12/05/2023 07:41:47 COVID-19 vaccine, vector-nr, rS-Ad26, PF, 0.5 mL 1 completed Magaly Terry APRN [address], [address], [place], [place], [address] [place] [address], [facility] [employer] [facility] 12/05/2023 07:41:47 COVID-19 vaccine, vector-nr, rS-Ad26, PF, 0.5 mL 1 completed Magaly Terry APRN [address], [address], [place], [place], [address] [place] [address], [facility] [employer] [facility] 12/05/2023 07:41:47 Influenza, high-dose, trivalent, PF 9 completed Magaly Terry APRN [address], [address], [place], [address], [facility] [employer] [facility] 12/05/2023 07:41:47 DTP 2 completed Not Available [facility] 05/30/2022 00:57:44 Influenza, split virus, quadrivalent, preservative 0 completed Magaly Terry APRN [address], [place], [address], [facility] [employer] [facility] 12/05/2023 07:41:47 pneumococcal polysaccharide PPV23 0 completed Not Available [facility] 05/30/2022 00:57:44 Pneumococcal conjugate PCV 13 9 completed Not Available [facility] 05/30/2022 00:57:44 Influenza, high-dose, quadrivalent, PF 3 completed Selina Cardoso RN [facility] [employer] [facility] 02/05/2023 18:11:15 Past Encounters Encounter ID Performer Location Encounter Start Date Encounter Closed Date Diagnosis/Indication Diagnosis SNOMED-CT Code Diagnosis ICD10 Code Diagnosis Note [id number] [facility] [place] [address] [place] [address] 05/30/2020 00:00:00 05/30/2020 16:11:25 [id number] [facility] [place] [address] [place] [address] 08/24/2020 00:00:00 08/25/2020 16:07:39 [id number] [facility] [place] [address] [place] [address] 11/22/2020 00:00:00 11/22/2020 14:17:09 [id number] [facility] [place] [address] [place] [address] 06/22/2021 00:00:00 06/28/2021 19:55:01 [id number] [facility] [place] [address] [place] [address], [address] [place] [address] 07/10/2021 00:00:00 07/25/2021 23:15:15 [id number] [facility] [place] [address] [place] [address], [address] [place] [address] 07/17/2021 00:00:00 07/25/2021 23:10:50 [id number] [facility] [place] [address] [place] [address] 07/20/2021 00:00:00 07/28/2021 10:34:36 [id number] [facility] [place] [address] [place] [address] 08/21/2021 00:00:00 08/21/2021 12:53:12 [id number] [facility] [place] [address] [place] [address], [address] [place] [address] 08/24/2021 00:00:00 08/24/2021 15:21:53 [id number] [facility] [place] [address] [place] [address] 09/19/2021 00:00:00 09/28/2021 09:11:56 [id number] [facility] [place] [address], [address] [place] [address] 10/06/2021 00:00:00 10/06/2021 10:29:12 [id number] [facility] [place] [address], [address] [place] [address] 10/26/2021 00:00:00 10/26/2021 14:30:05 [id number] [facility] [place] [address] [place] [address] 11/28/2021 00:00:00 11/28/2021 10:12:21 [id number] _ATHENA_M IGRATION_ DEFAULT_1 _1 , 12/20/2021 00:00:00 12/20/2021 12:09:40 [id number] _ATHENA_M IGRATION_ DEFAULT_1 _1 , 01/10/2022 00:00:00 01/10/2022 16:06:09 [id number] [facility] [place] [address] [place] [address] 02/28/2022 00:00:00 02/28/2022 14:07:31 [id number] [facility] [place] [address] [place] [address] 03/14/2022 00:00:00 03/30/2022 11:29:26 [id number] [facility] [place] [address] [place] [address] 03/16/2022 00:00:00 03/16/2022 18:01:17 [id number] [facility] [place] [address] [place] [address] 04/11/2022 00:00:00 04/11/2022 12:33:00 [id number] [facility] [place] [address] [place] [address] 04/24/2022 00:00:00 04/25/2022 18:13:59 [id number] [facility] Primary Care [facility] [address] [facility] [address] [place] [address] 05/23/2022 00:00:00 05/28/2022 17:45:36 [id number] Flex Tompkins MD [facility] Primary Care [facility] [address] [facility] 140 [facility] [place] [address] 05/30/2022 17:11:30 05/31/2022 11:38:51 Hyponatremia 99803354 E87.1 [facility]i ng [facility], may need to temporaril y start sodium replacemen t Anemia 811720775 D64.9 recheck labs Serotonin syndrome 08653 9000 G25.79 improved since d/c citalopram mood doing well Degenerati on of cervical intervertebral disc 70861133 M50.30 scheduled for surgery on Saturdaywill correct any electrolyt e abnormalit ies on labs drawn today and clear for surgerypt has significan t quality of life issues due to neck pain [id number] JORDYN Phan [facility] Primary Care [facility] [address] [facility] 140 [facility] [place] [address] 07/11/2022 15:10:56 07/11/2022 16:08:11 Hyponatremia 99648803 E87.1 Recheck sodium levels. Continue sodium supplement . Chronic ki dney disease stage 3 614509024 N18.30 Continue f/u with Dr. Reyna (nephrolog ist). Degenerati on of cervical intervertebral disc 06150386 M50.30 Currently in collar. States she is doing well, minimal pain. Will f/u with surgeon 07/18/22. [id number] Flex Tompkins MD [facility] Primary Care [facility] [address] [facility] 140 [facility] [place] [address] 08/06/2022 14:07:54 08/06/2022 15:03:33 Dysfunction of left eustachian tube 9949510762 658477 H69.92 Benign ess ential hypertension 0910184 I10 Hyperthyroidism 24396658 E05.90 Iron defic iency anemia 30064357 D50.9 Type 2 mabel betes mellitus without complication 762424395 E11.9 [id number] Flex Tompkins MD [facility] Primary [facility] [place] [address] [place] [address] 09/11/2022 14:13:22 09/11/2022 14:39:54 Dizziness 344558922 R42 likely due to degenerati ve disk disease cervical spinecheck US carotid Gout 59853585 M10.9 ?gout attackchec k uric acid Essential hypertension 86898258 I10 stable Iron defic iency anemia 08249955 D50.9 Type 2 mabel betes mellitus without complication 445969304 E11.9 [id number] Noah Rodrigues MD [facility] [place] [address] [place] [address] 09/20/2022 15:17:33 09/20/2022 16:04:27 Chronic sinusitis 84947821 J32.9 [id number] Noah Rodrigues MD [facility] [place] [address] [place] [address] 10/24/2022 15:29:01 10/24/2022 16:16:21 Chronic sinusitis 19090089 J32.9 [id number] Flex Tompkins MD [facility] Primary [facility] [place] [address] [facility] [address] [place] [address] 10/26/2022 15:25:01 10/26/2022 15:31:35 [id number] Flex Tompkins MD [facility] [place] [address] [facility] [address] [place] [address] 11/02/2022 11:05:59 11/02/2022 11:36:05 Dizziness 366101456 R42 US carotid normalLabs stablehas f/u with ENT, CT did show sinus thickening if no improvemen t after sinus treatment, will refer to neurology for further evaluation reviewed s/s that warrant urgent/александр rgent eval in meantime [id number] Flex Tompkins MD [facility] Primary [facility] [place] [address] [facility] [address] [place] [address] 11/28/2022 15:58:32 12/24/2022 15:44:59 [id number] Noah Rodrigues MD [facility] [place] [address] [place] [address] 12/06/2022 14:47:54 12/06/2022 15:52:47 Chronic sinusitis 66330329 J32.9 Benign par oxysmal positional vertigo 107836841 H81.10 [id number] Flex Tompkins MD [facility] [place] [address] [facility] [address] [facility] [place] [address] 02/05/2023 15:22:05 02/05/2023 15:48:32 Administration of influenza vaccine 14454360 Z23 Dizziness 808047535 R42 US carotid normalLabs stablehas f/u with ENT, CT did show sinus thickening if no improvemen t after sinus treatment, will refer to neurology for further evaluation reviewed s/s that warrant urgent/александр rgent eval in meantime update 02/05/23: resolved, f/u prn [id number] Flex Tompkins MD [facility] Primary Care [facility] [address] [facility] [address] [facility] [place] [address] 08/06/2023 15:13:47 08/16/2023 13:51:10 Adult health examination 318338733 Z00.00 Mammogram normal 05/25DEXA repeat orderedshi ngrix series 01/17 and 03/19Get flu vaccine yearlyteta nus shot done 2011Prevna r 13 given 2019Pneumo vax 23 given 2020Recomm end RSV vaccineRec ommend covid boosterCol onoscopy 12/2021- bular adenoma repeat 2026Labs up to date Screening for disorder 892551895 Z13.9 Postmenopausal state 764 89767 Z78.0 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 EGD 12/21 with recommenda tion to repeat EGD 12/23 Chronic ki dney disease stage 3 519589214 N18.30 I12.9 E55.9 E11.22 sees nephrology Benign ess ential hypertension 4293943 I10 check labs, if GFR is acceptable , will increase lisinopril to 40 mg daily Chronic ob structive pulmonary disease 48069737 J44.9 stable Hyperlipidemia 78670649 E78.5 stable Hypothyroidism 40400346 E03.9 stable Iron defic iency anemia 87965071 D50.9 uncertain statuschec k labs Primary fi bromyalgia syndrome 42476672 M79.7 stable Type 2 mabel betes mellitus without complication 952186555 E11.9 Eye exam up to datepodiat ry referral givencheck labs Gout 81038474 M10.9 stablerech balnca uric acid Degenerati on of lumbar intervertebral disc 18470987 M51.36 will check xrays, has seen pain mgmt in the past Pain of le ft hip joint 9061806490 38823 M25.552 Eruption 892488864 R21 [id number] CEZAR Albert [facility] [address] [place] [address] 09/19/2023 14:13:42 09/19/2023 15:09:46 Diabetes mellitus 15442068 E11.9 -hx of positive use with jacqui hartman blood sugar occ, 120s to 150s-trial ozempic, f/u in 1 month [id number] CEZAR Albert [facility] [address] [place] [address] 11/21/2023 16:00:44 11/21/2023 16:49:44 Diabetes mellitus 13419570 E11.9 no negative side effects noted with use of ozempicnot es blood sugars being as low as the 80sencoura ge snack before bed time Neuropathy 977784074 G62 .9 Gout 45131398 M10.9 Renewal of prescription 393748820 Z76.0 Health Concerns Section Related Observation LastModified by Organization Detai ls LastModified Time None Recorded Concern Status LastModified by Organization Details LastModified Time None Recorded Advance Directives Directive None Recorded Payers Encounter Date Sequence Insurance Name Policy Number Policy [place] Covered Member ID Inman Member ID Guarantor Name 12/06/2022 1 [facility] (MEDICARE REPLACEMENT/A DVANTAGE - HMO) [id number] Kandace Cole [id number] Kandace Maria Douglas 02/05/2023 1 [facility] (MEDICARE REPLACEMENT/A DVANTAGE - HMO) [id number] Kandace Maria Douglas [id number] Kandace Cole 08/06/2023 1 [facility] (MEDICARE REPLACEMENT/A DVANTAGE - HMO) [id number] Kandace Maria Douglas [id number] Kandace Cole 09/19/2023 1 [facility] (MEDICARE REPLACEMENT/A DVANTAGE - HMO) [id number] Kandace Maria Douglas [id number] Kandace Cole 11/21/2023 1 [facility] (MEDICARE REPLACEMENT/A DVANTAGE - HMO) [id number] Kandace Maria Douglas [id number] Kandace Cole Notes Date Note Type Note Provider Name and Address Organization Details Recorded Time 12/06/2022 text/html this patient reports that antibiotics were successful and eliminating her sinusitis symptoms. However she does have left-sided hearing loss and dizziness. This follows a fall. 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 Noah Rodrigues MD [address], [address], [place], [address], [employer] 12/06/2022 15:22:51 02/05/2023 text/html had neck surgery on 06/04. Does have some dizziness no home health-going to PT twice per week. Able to dress/bath since her fall and facial fracture, her jaw shifts, and has ear pain and loss of hearing left side update 09/11/22: At night has pounding in her head that wakes her up, she will sit up and take her bp and it is 130s/60s. While upright she does well, but she does feel dizzy when she rolls over in bed. Last week big toe was swollen painful and red for a few days. update 11/02/22: Neck pain improved, able to drive herself today, still having dizziness. Had US carotid doppler and CT scan done with ENT yesterday. update 02/05/23: No dizziness for 2 weeks, she is going to PT. She is overall feeling well. Flex Tompkins MD [address], [address], [place], [address], [employer] 02/05/2023 15:43:35 08/06/2023 text/html Blood pressure h as been elevated Blood sugars have been fairly good pain down left leg, hard to bear weight, constantno numbness rash started about 3 weeks ago-top of foot, elbows and knees. Using athletes foot cream Flex Tompkins MD [address], [address], [place], [address], [employer] [facility] [employer] 08/14/2023 17:47:57 09/19/2023 text/html pt is here to review labs/imaging CEZAR Albert [address], [address], [place], [address], [employer] 09/19/2023 14:36:16 11/21/2023 text/html pt is here for f /u on meds CEZAR Albert [address], [address], [place], [address], [employer] 11/21/2023 16:25:25 OBGyn Episode No OBEpisode recorded.
--- OUTSIDE RECORDS SUMMARY | 2024-04-11 03:30 | XMS_ITS | Encounter Summary ---
Author Organization [facility] Address [address] [place] [address] Care Team Providers Care Architectural Job Captain Name Role Phone Karrie Phillips MD Primary Care Provider [phone] Encounter Details Date Type Department Care Team (Latest Contact Info) Description 09/04/2022 2:04 PM CDT - 09/04/2022 11:59 PM CDT Hospital Encounter [facility] DIAGNOSTIC RAD [facility] [address] [facility] [address] Deon Taylor MD [address] [place] [address] Discharge Disposition: Home or Self Care Social History Tobacco Use Types Packs/Day Years Used Date Smoking Tobacco: Never Passive Smoke Exposure: Never Smokeless Tobacco: Never Alcohol Use Standard Drinks/Week Comments No 0 (1 standard drink = 0.6 oz pur e alcohol) AUDIT-C Answer Date Recorded Q1: How often do you have a drink containing alc ohol? Never 06/20/2022 Average Number of Drinks Not on file 023 Frequency of Binge Drinking Not on file 05/31 Overall Financial Resource Strain (CARDIA) Answe r Date Recorded How hard is it for you to pa y for the very basics like food, housing, medical care, and heating? Not hard at all 06/04/2022 [facility] [place] [facility] Occupat ional Health - Occupational Stress Questionnaire Answer Date Recorded Do you feel stress - tense, restless, nervous, or anxious, or unable to sleep at night because your mind is troubled all the time - these days? Not at all 06/04/2022 Hunger Vital Sign Answer Date Recorded Within the past 12 months, y ou worried that your food would run out before you got the money to buy more. Never true 06/05/19 23 Within the past 12 months, t he food you bought just didn't last and you didn't have money to get more. Never true 06/04/2022 PRAPARE - Transportation Answer Date Re corded In the past 12 months, has l ack of transportation kept you from medical appointments or from getting medications? No 08/2022 In the past 12 months, has l ack of transportation kept you from meetings, work, or from getting things needed for daily living? No 06/04/2022 Housing Stability Vital Sign Answer Kurtis e Recorded In the last 12 months, was t here a time when you were not able to pay the mortgage or rent on time? No 06/04/2022 In the last 12 months, how many places have you lived? 1 06/04/2022 In the last 12 months, was t here a time when you did not have a steady place to sleep or slept in a [place] [facility] [place] (including now)? No 06/04/2022 Sex and Gender Information Value Date Recorded Sex Assigned at Not on file Gender Identity Not on file Sexual Orientation Not on file documented as of this encounter Functional Status Functional Status Response Date of Assess ment Is person deaf or have serious hearing difficult y? No 06/04/2022 Is person blind or have serious difficulty seein g? No 06/04/2022 Does person have serious dif ficulty walking/climbing stairs? No 06/04/2022 Does person have difficulty dressing/bathing? No 06/04/2022 Does person have difficulty doing errands alone? No 06/04/2022 Cognitive Status Response Date of Assessm ent Does person have difficulty concentrating/remembering/making decisions? No 06/04/2022 documented as of this encounter Medications at Time of Discharge Medication Sig Dispensed Refills Start Date End Date acetaminophen (Tylenol) 325 MG tablet Take 2 (two) tablets by mouth every 6 hours as needed Maximum allowable Acetaminophen amount = 4 Grams (4000 mg) / 24 hours. 02/19/2022 artificial tears ophthalmic solution Instill 1 (one) drop into both eyes every 4 hours as needed 4 mL 02/19/2022 buPROPion SR 12hr (Wellbutrin-SR) 100 MG tablet Take 1 (one) tablet by mouth 2 times daily carvedilol (Coreg) 6.25 MG tablet Take 1 (one) tablet by mouth 2 times daily escitalopram (Lexapro) 20 MG tablet Take 0.5 (one-half) tablet by mouth once daily 06/23/2022 gabapentin (Neurontin) 300 MG capsule Take 1 (one) capsule by mouth 3 times daily 30 capsule 3 06/08/2022 latanoprost (Xalatan) 0.005 % ophthalmic solution 03/07/2022 lisinopril (Prinivil; Zestril) 20 MG tablet Take 1 (one) tablet by mouth once daily meclizine (Antivert) 25 MG tablet meclizine 25 mg tablet 1 po tid prn 07/13/2021 ondansetron, disintegrating, (Zofran ODT) 4 MG tablet Take 1 (one) tablet by mouth every 6 hours as needed for Nausea/Vomiting Allow tablet to dissolve on the tongue 12 tablet 06/23/2022 pantoprazole EC (Protonix) 40 MG tablet Take 1 (one) tablet by mouth once daily 02/20/2022 pravastatin (Pravachol) 40 MG tablet pravastatin 40 mg tablet TAKE 1 TABLET BY MOUTH DAILY QUEtiapine (SEROquel) 100 MG tablet Take 1 (one) tablet by mouth every evening 06/08/2022 saline nasal spray ([place]; Baby [place]) 0.65 % nasal spray [place] 1 (one) spray into each nostril as needed for Dry Nose 15 mL 02/19/2022 vitamin D3 (Cholecalciferol) 10 MCG (400 UNIT) tablet Take 2 (two) tablets by mouth once daily 06/09/2022 documented as of this encounter Plan of Treatment Upcoming Encounters Date Type Department Care Team (Late st Contact Info) Description 06/02/2024 1:45 PM PLANNED GIVING OFFICER Office Visit [facility] - Orthopedics [address] [place] [address], [place] [address] Deon Taylor MD [address] [place] [address] documented as of this encounter Procedures Procedure Name Priority Date/Time Associated Diagnosis Comments XR CERVICAL SPINE 2 OR 3VW Routine 09/04/2022 2:09 PM CDT S/P cervical spinal fusion documented in this encounter Results * XR CERVICAL SPINE 2 OR 3VW (09/04/2022 2:09 PM CDT) Anatomical Region Laterality Modality Spine Radiographic Vivian ging 09/04/2022 2:11 PM CDT Narrative 09/04/2022 3:15 PM CDT PROCEDURE: ??XR CERVICAL SPINE 2 OR 3VW, DATE/TIME OF EXAM: ??09/04/2022 2:09 PM, LOCATION ??[facility] INDICATION: Z98.1: S/P cervical spinal fusion ADDITIONAL CLINICAL INFORMATION: Ordering Provider Reason For Exam: ??NECK PAIN Technologist Note: Additional: COMPARISON: Cervical spine radiograph dated 07/18/2022 FINDINGS/IMPRESSION: The patient is status post posterior instrument fusion from C4 to T2. There are disc spacers at C4-5 and C5-6. The instrumentation is intact. There is bony fusion from C4 to T1. There is 3 mm anterolisthesis at T1-2 is unchanged. The region of the C6 vertebral body is sclerotic, unchanged. No acute fracture or compression deformity is identified. ?? The predental interval and prevertebral soft tissues are normal. Report dictated by Jose Kohli MD (vice president of development). I, Tony Hansen MD have personally reviewed and interpreted this examination/study. > Interpreting Provider: Tony Hansen MD on 09/04/2022 3:15 PM Procedure Note Tony Hansen MD - 09/04/2022 PROCEDURE: XR CERVICAL SPINE 2 OR 3VW, DATE/TIME OF EXAM: 32:09 PM, LOCATION [facility] INDICATION: Z98.1: S/P cervical spinal fusion ADDITIONAL CLINICAL INFORMATION: Ordering Provider Reason For Exam: NECK PAIN Technologist Note: Additional: COMPARISON: Cervical spine radiograph dated 07/18/2022 FINDINGS/IMPRESSION: The patient is status post posterior instrument fusion from C4 to T2.There are disc spacers at C4-5 and C5-6. The instrumentation is intact. Thereis bony fusion from C4 to T1. There is 3 mm anterolisthesis at T1-2 is unchanged. The region of the C6 vertebral body is sclerotic, unchanged.No acute fracture or compression deformity is identified. The predental interval and prevertebral soft tissues are normal. Report dictated by Jose Kohli MD (vice president of development). I, Tony Hansen MD have personally reviewed and interpreted this examination/study. > Interpreting Provider: Tony Hansen MD on 09/04/2022 3:15PM Deon Taylor MD DIAGNOSTIC IMAGING O RDERABLES documented in this encounter Visit Diagnoses Diagnosis S/P cervical spinal fusion Arthrodesis status documented in this encounter Care Teams Architectural Job Captain Relationship Specialty Start Date End Date Karrie Phillips MD [address] [place] [address] PCP - General 03/13/22 documented as of this encounter
--- OUTSIDE RECORDS SUMMARY | 2024-04-11 03:30 | XMS_ITS | Encounter Summary ---
Author Organization [facility] Address [address] [place] [address] Care Team Providers Care Commercial Hvac Service Technician Name Role Phone Karrie Phillips MD Primary Care Provider [phone] Encounter Details Date Type Department Care Team (Latest Contact Info) Description 12/04/2022 2:44 PM CDT - 12/04/2022 11:59 PM CDT Hospital Encounter [facility] DIAGNOSTIC RAD CSM [address]L [address] [facility] [address] Deon Taylor MD [address] [place] [address] Discharge Disposition: Home or Self Care Social [...] and heating? Not hard at all 06/04/2022 [facility] of Occupat ional Health - Occupational Stress [...] place to sleep or slept in a custodial (including now)? No 06/04/2022 Sex and Gender [...] (one) tablet by mouth 2 times daily calcitriol (Rocaltrol) 0.25 MCG capsule 11/05/2022 carvedilol (Coreg) 6.25 MG tablet Take 1 (one) tablet by mouth 2 times daily citalopram (CeleXA) 40 MG tablet 1 tablet Orally Once a day escitalopram (Lexapro) 20 MG tablet Take 0.5 (one-half) tablet by mouth once daily 06/23/2022 furosemide (Lasix) 20 MG tablet Take 1 (one) tablet by mouth every 2 days gabapentin (Neurontin) 300 MG capsule Take 1 [...] mouth every evening 06/08/2022 saline nasal spray ([place]; Baby [place]) 0.65 % nasal spray [place] 1 (one) spray into each nostril as needed for Dry Nose 15 mL 02/19/2022 vitamin D3 (Cholecalciferol) 10 MCG (400 UNIT) tablet Take 2 (two) tablets by mouth once daily 06/09/2022 documented as of this encounter Plan of Treatment Upcoming Encounters Date Type Department Care Team (Late st Contact Info) Description 06/02/2024 1:45 PM FILM TOUCH UP INSPECTOR Office Visit [facility] - Orthopedics [address] [facility], [place] [address] Deon Taylor MD [facility] [place] [address] documented as of this encounter Procedures Procedure Name Priority Date/Time Associated Diagnosis Comments XR CERVICAL SPINE 2 OR 3VW Routine 12/04/2022 2:45 PM CDT S/P cervical spinal fusion documented in this encounter Results * XR CERVICAL SPINE 2 OR 3VW (12/04/2022 2:45 PM CDT) Anatomical Region Laterality Modality Spine Radiographic Vivian ging 12/04/2022 2:53 PM CDT Impressions 12/04/2022 3:02 PM CDT IMPRESSION: Redemonstrated C4-T2 posterior instrumentation with unchanged alignment. Report dictated by Caesar Carpio MD (interventional radiology rn). I, Petar Spears MD have personally reviewed and interpreted this examination/study. > Interpreting Provider: Petar Spears MD on 12/04/2022 3:02 PM Narrative 12/04/2022 3:02 PM CDT PROCEDURE: ??XR CERVICAL SPINE 2 OR 3VW, DATE/TIME OF EXAM: ??12/04/2022 2:47 PM, LOCATION ??[facility] INDICATION: Z98.1: S/P cervical spinal fusion ADDITIONAL CLINICAL INFORMATION: Ordering Provider Reason For Exam: ??neck pain Technologist Note: Additional: COMPARISON: Cervical spine x-ray 09/18/2022. FINDINGS: Redemonstrated C4-T2 posterior instrumentation. There are interbody grafts at C4-5 and C5-6 with osseous fusion. The alignment is unchanged, with kyphosis at the cervicothoracic junction. No radiographic evidence of acute fracture or compression deformity is identified. Multilevel degenerative changes are present. The predental interval and prevertebral soft tissues are normal. Bone density and texture are normal. Procedure Note Petar Spears MD - 12/04/2022 PROCEDURE: XR CERVICAL SPINE 2 OR 3VW, DATE/TIME OF EXAM: 32:47 PM, LOCATION [facility] INDICATION: Z98.1: S/P cervical spinal fusion ADDITIONAL CLINICAL INFORMATION: Ordering Provider Reason For Exam: neck pain Technologist Note: Additional: COMPARISON: Cervical spine x-ray 09/18/2022. FINDINGS: Redemonstrated C4-T2 posterior instrumentation. There are interbodygrafts at C4-5 and C5-6 with osseous fusion. The alignment is unchanged, with kyphosis at the cervicothoracic junction. No radiographic evidence of acute fracture or compression deformity is identified. Multilevel degenerative changes are present. The predental interval and prevertebral soft tissues are normal. Bone density andtexture are normal. IMPRESSION: Redemonstrated C4-T2 posterior instrumentation with unchanged alignment. Report dictated by Caesar Carpio MD (interventional radiology rn). I, Petar Spears MD have personally reviewed and interpreted this examination/study. > Interpreting Provider: Petar Spears MD on 12/04/2022 3:02 PM Deon Taylor MD DIAGNOSTIC IMAGING O RDERABLES documented in this encounter Visit Diagnoses Diagnosis S/P cervical spinal fusion Arthrodesis status documented in this encounter Care Teams Commercial Hvac Service Technician Relationship Specialty Start Date End Date Karrie Phillips MD [address] [place] [address] PCP - General 03/13/22 documented as of this encounter
--- OUTSIDE RECORDS SUMMARY | 2024-04-11 03:30 | XMS_ITS | Encounter Summary ---
Author Organization [facility] Address [address] [place] [address] Care Team Providers Care Time Study Clerk Name Role Phone Karrie Phillips MD Primary Care Provider [phone] Reason for Visit * Reason Comments Pain Neck * Consult, Test & Treat (Routine) - Closed Specialty Diagnoses / Procedures Referred By Contac t Referred To Contact Orthopedic Surgery / Orthopedics Selfreferral, Patient Deon Taylor MD [address] [place] [id number] Referral ID Status Reason Start Date Expiration Date Visits Re quested Visits Authorized [id number] Closed 09/04/2022 09/04/2023 1 1 Encounter Details Date Type Department Care Team (Late st Contact Info) Description 09/04/2022 2:00 PM CDT Office Visit [facility] - Orthopedics [address] [place] [address], [place] [address] Deon Taylor MD [address] [place] [address] S/P cervical spinal fusion (Primary Dx) Social History Tobacco Use Types Packs/Day Years [...] and heating? Not hard at all 06/04/2022 [facility] of Occupat ional [facility] - Occupational Stress Questionnaire Answer Date Recorded [...] place to sleep or slept in a [facility] (including now)? No 06/04/2022 Sex and Gender Information Value Date Recorded Sex Assigned at Not on file Gender Identity Not on file Sexual Orientation Not on file documented as of this encounter Last Filed Vital Signs Vital Sign Reading Time Taken Comments Blood Pressure - - Pulse - - Temperature - - Respiratory Rate - - Oxygen Saturation - - Inhaled Oxygen Concentration - - Weight 65.5 kg (144 lb 6.4 oz) 09/04/2022 2:14 P M CDT Height 154.9 cm (5' 1 ) 09/04/2022 2:14 PM CDT Body Mass Index 27.28 09/04/2022 2:14 PM CDT documented in this encounter Functional Status Functional Status Response [...] No 06/04/2022 documented as of this encounter Patient Instructions * Patient Instructions* Anabell Avendaño RN - 09/04/2022 2:29 PM CDT Kandace Cole 09/04/2022 Follow up: 3 months -Continue therapy and daily home exercises/ stretching Please contact our clinic call center at if you need to schedule or change an appointment. For medical emergencies please call 911. Please contact Anabell Avendaño RN at [phone] (previously [phone]) or through [employer] if you have any further questions or concerns. [facility] Orthopaedic office contact information: [facility] [address] [place] [address] [place] [address] [facility] [address] [place] [address], [place] [address] September 04, 2022 To Whom It May Concern: Please use this letter to document that Kandace Cole, : 1950, was in to see Deon Taylor MD on 09/04/2022. Thank you. Sincerely, Deon Taylor MD [facility] [address] documented in this encounter Progress Notes * Deon Taylor MD - 09/04/2022 8:32 PM CDT 72-year-old female who is now about 3 months out status post C5-6 laminectomy and C4-T2 posterior instrumented fusion. Overall reports she is doing very well. She is working with physical therapy with improvements in her pain and function. Her pain already is much improved compared to preop and herhand function is also improved. She is still working on trying to improve her balance and gait. On exam today patient demonstrates 5 out of 5 strength in bilateral upper and lower extremities including deltoids biceps triceps wrist extensors wrist flexors seed trucker strength interosseous muscles as well as hip flexors quads hamstrings gastrocs tib ant and EHL. On examination of C5-T1 and L2-S1 derma tomes patient does not endorse any areas of decreased sensation. Incision is well healed X-rays demonstrate stable alignment of cervical thoracic spine and stable appearance of hardware without signs of loosening or breakage. Assessment and plan: 72-year-old female status post the above listed procedure now 3 months out overall doing very well. Recommend continue work with physical therapy and we will plan to follow-up inanother 3 months with repeat x-rays and clinical exam. Patient-Reported Satisfaction 09/04/2022 Current state satisfactory? No Prior treatment? Yes - surgery Function since surgery Improved Currently taking narcotics? No PROMIS Pain Interference 09/04/2022 05/08/2022 03/13/2022 PROMIS PI Score 62 (moderate) 74 (severe) 67 (moderate) This note was transcribed using [employer] dictation software and may include inaccuracies in filling winder which were unrecognized and not corrected. Please reach out to my clinical nurse, Anabell Avendaño RN [phone] for any questions or concerns. Deon Taylor MD documented in this encounter Plan of Treatment Upcoming Encounters Date Type Department Care Team (Late st Contact Info) Description 06/02/2024 1:45 PM GRAD INTERN Office Visit [facility] - Orthopedics [address] [place] [address], [place] [id number] Deon Taylor MD [address] [place] [id number] documented as of this encounter Visit Diagnoses Diagnosis S/P cervical spinal fusion- Primary Arthrodesis status documented in this encounter Care Teams Time Study Clerk Relationship Specialty Start Date End Date Karrie Phillips MD [address] [place] [address] PCP - General 03/13/22 documented as of this encounter
--- OUTSIDE RECORDS SUMMARY | 2024-04-11 03:30 | XMS_ITS | Clinical Summary ---
Author Organization [facility] Address [address] [facility] [address] Care Team Providers Care Alignment Specialist Name Role Phone Karrie Phillips MD Primary Care Provider [phone] Source Comments [facility],non-owned Affiliates and Associated Physician Practices is amultiple site organization consisting of ambulatory clinics and hospital sitesin [place], [place], [place] and [place]. This disclosure is being madepursuant to the Care Everywhere program and may not contain all information available regarding this patient. Last updated 17.[facility] Allergies Active Allergy Reactions Criticality Noted Date Comments Cyclobenzaprine 12/09/2009 Eggs 12/09/2009 Fluoxetine 12/09/2009 Latex 12/09/2009 Naproxen 12/09/2009 Other 12/09/2009 demeral Sulfa Antibiotics Urticaria Medium 05/27/2022 Sulfamethoxazole W-Trimethoprim 11/30 Bethanechol Chloride 12/09/2009 Medications * Be aware that medications may not be up to date on this document. Alwaysverify current medications with the patient. Medication Sig Dispensed Refills Start Date End Date Status acetaminophen (Tylenol) 325 MG tablet Take 2 (two) tablets by mouth every 6 hours as needed Maximum allowable Acetaminophen amount = 4 Grams (4000 mg) / 24 hours. 02/19/2022 Active saline nasal spray ([place]; Baby [place]) 0.65 % nasal spray [place] 1 (one) spray into each nostril as needed for Dry Nose 15 mL 02/19/2022 Active artificial tears ophthalmic solution Instill 1 (one) drop into both eyes every 4 hours as needed 4 mL 02/19/2022 Active pantoprazole EC (Protonix) 40 MG tablet Take 1 (one) tablet by mouth once daily 02/20/2022 Active carvedilol (Coreg) 6.25 MG tablet Take 1 (one) tablet by mouth 2 times daily Active latanoprost (Xalatan) 0.005 % ophthalmic solution 03/07/2022 Active buPROPion SR 12hr (Wellbutrin-SR) 100 MG tablet Take 1 (one) tablet by mouth 2 times daily Active lisinopril (Prinivil; Zestril) 20 MG tablet Take 1 (one) tablet by mouth once daily Active meclizine (Antivert) 25 MG tablet meclizine 25 mg tablet 1 po tid prn 07/13/2021 Active pravastatin (Pravachol) 40 MG tablet pravastatin 40 mg tablet TAKE 1 TABLET BY MOUTH DAILY Active gabapentin (Neurontin) 300 MG capsule Take 1 (one) capsule by mouth 3 times daily 30 capsule 3 06/08/2022 Active QUEtiapine (SEROquel) 100 MG tablet Take 1 (one) tablet by mouth every evening 06/08/2022 Active vitamin D3 (Cholecalciferol) 10 MCG (400 UNIT) tablet Take 2 (two) tablets by mouth once daily 06/09/2022 Active escitalopram (Lexapro) 20 MG tablet Take 0.5 (one-half) tablet by mouth once daily 06/23/2022 Active ondansetron, disintegrating, (Zofran ODT) 4 MG tablet Take 1 (one) tablet by mouth every 6 hours as needed for Nausea/Vomiting Allow tablet to dissolve on the tongue 12 tablet 06/23/2022 Active furosemide (Lasix) 20 MG tablet Take 1 (one) tablet by mouth every 2 days Active citalopram (CeleXA) 40 MG tablet 1 tablet Orally Once a day Active calcitriol (Rocaltrol) 0.25 MCG capsule 11/05/2022 Active Active Problems Problem Noted Date Diagnosed Date Shortness of breath 06/20/2022 Abdominal pain, left upper quadrant 06/20/2022 Dizziness 06/20/2022 Hematemesis with nausea 06/20/2022 Benign essential hypertension 03/13/2022 Hypothyroidism 03/13/2022 Iron deficiency anemia 03/13/2022 Leukocytosis 03/13/2022 Temporomandibular joint disorder 03/13/2022 Primary fibromyalgia syndrome 03/13/2022 Syncope and collapse 02/15/2022 Trauma 02/15/2022 Injury of head, initial encounter 02/15/2022 Fall, initial encounter 02/15/2022 Multiple closed fractures of facial bone, initia l encounter 02/15/2022 Nausea 01/10/2022 Abdominal pain 12/07/2021 Abnormal serum creatinine level 12/07/2021 Anemia 12/07/2021 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 Cardiomegaly 12/07/2021 Chronic depression 12/07/2021 Glaucoma 12/07/2021 Hyperkalemia 12/07/2021 Hyperthyroidism 12/07/2021 Intractable chronic migraine without aura 2021 Macular degeneration 12/07/2021 Migraine 12/07/2021 Systemic sclerosis 12/07/2021 Sprain of ankle 12/07/2021 Sciatica 12/07/2021 Recurrent major depression in remission 12/08/19 22 Polyp of colon 12/07/2021 Perineal pain 12/07/2021 Nonexudative 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 Multiple bruises 12/07/2021 Mixed collagen vascular disease 12/07/2021 Paronychia of toe of right foot 07/25/2021 Onychomycosis of toenail 07/17/2021 Chronic kidney disease 03/30/2019 Chronic obstructive pulmonary disease 03/30/2019 Hyposmolality 03/30/2019 Ulnar neuropathy 03/30/2019 Raynaud's disease 03/30/2019 Dyspnea on exertion 02/23/2019 Type 2 diabetes mellitus 02/23/2019 Type 2 diabetes mellitus wit h stage 3 chronic kidney disease, without long-term current use of insulin 02/23/2019 Mixed hyperlipidemia 02/23/2019 Degeneration of cervical intervertebral disc 12/2009 Resolved Problems Problem Noted Date Diagnosed Date Resolved Date Pneumonia 12/07/2021 04/10/2022 Immunizations Name Administration Dates Next Due COVID JORJE PRIMARY 18+YR 06/08/2020 DTP 07/18/2011 FLU VACCINE QUAD IIV4 SPLIT 0.25 ML IM 0,12/30/2018 INFLUENZA VACCINE, HIGH-DOSE , QUADR. (FLUZONE HIGH-DOSE QUADRIVALENT; 65Y+), 0.7 ML (HD-IIV4) 12/08/2019,01/25/2019 PNEUMOCOCCAL PPSV23 07/01/2019 Pneumococcal Pcv13 Conj 06/30/2018 Zoster Hzv Vacc Recombinant Inj Im 03/18/2019, Social History Tobacco Use Types Packs/Day Years Used Date Smoking Tobacco: Never Passive Smoke Exposure: Never Smokeless Tobacco: Never Tobacco Cessation:Counseling Given: Not Answered Alcohol Use Standard Drinks/Week Comments No 0 [...] and heating? Not hard at all 06/04/2022 [facility] [place] of Occupat ional Health - Occupational Stress [...] place to sleep or slept in a penitentiary (including now)? No 06/04/2022 Sex and Gender Information Value Date Recorded Sex Assigned at Not on file Gender Identity Not on file Sexual Orientation Not on file Last Filed Vital Signs Vital Sign Reading Time Taken Comments Blood Pressure 164/53 06/23/2022 12:32 PM CDT Pulse 77 06/23/2022 12:32 PM CDT Temperature 36.4 ??C (97.5 ??F) 06/23/2022 12:32 PM C DT Respiratory Rate 18 06/23/2022 8:19 AM CDT Oxygen Saturation 99% 06/23/2022 12:32 PM CDT Inhaled Oxygen Concentration - - Weight 68.6 kg (151 lb 3.2 oz) 06/04/2023 2:02 P M CORN CHIP MAKER Height 154.9 cm (5' 1 ) 12/04/2022 2:47 PM CDT Body Mass Index 28.57 12/04/2022 2:47 PM CDT Plan of Treatment Upcoming Encounters Date Type Department Care Team (Late st Contact Info) Description 06/02/2024 1:45 PM CORN CHIP MAKER Office Visit [facility] - [facility] [address] [place] [address], [facility] [place] [address] Deon Taylor MD [address] [place] [id number] Health Maintenance Due Date Last Done Comments BONE DENSITY TESTING 1950 COLOGUARD (AGES 45-75) - COLON CA SCREENING 1950 COLON MONITORING 1950 COLONOSCOPY - COLON CA SCREENING 1950 CT COLONOGRAPHY - COLON CA SCREENING 1950 Colorectal Cancer Screening 1950 FIT - COLON CA SCREENING 1950 FLEX SIG - COLON CA SCREENING 1950 MAMMOGRAM 1950 HEPATITIS C SCREENING 02/07/1968 Respiratory Syncytial Virus (RSV) Vaccine Pt: or over 60 yrs (1 - Risk 60-74 years 1-dose series) 2010 DTAP/TDAP/TD VACCINES (2 - Tdap) 07/17/2021 07/18/2011 DIABETES-FOOT EXAM WITH MONOFILAMENT 03/13/2022 DIABETES-HGB A1C 12/07/2022 06/06/2022, 02/16/2022 DIABETES-SERUM CREATININE 06/24/20232022, 06/22/2022, 06/21/2022, Additional history exists COVID-19 VACCINE (2 - 2023- season) 2023 06/08/2020 INFLUENZA VACCINE (#1) 2023 , 12/08/2019, 01/25/2019, Additional history exists DIABETES RETINOPATHY SCREENING 02/17/2024 02/16/2022, 02/15/2022 DEPRESSION SCREENING 04/01/2024 DIABETES - URINE PROTEIN SCREENING 04/01/2024 MEDICARE AWV ? CALENDAR YEAR 2024 ZOSTER VACCINE Completed 03/18/2019, 01/12/2019 PNEUMOCOCCAL VACCINE 50+ Completed 07/01/2019, 04/2018 HEPATITIS B VACCINE Aged Out No longe r eligible based on patient's age to complete this topic HIB VACCINE Aged Out No longer eligi ble based on patient's age to complete this topic HPV VACCINE Aged Out No longer eligi ble based on patient's age to complete this topic MENINGOCOCCAL (Group B) VACCINE Aged Out No longer eligible based on patient's age to complete this topic MENINGOCOCCAL VACCINE Aged Out No tiana nohemy eligible based on patient's age to complete this topic Medical Devices Implanted Type Area Microgrinder Operator Device Identifier Shelf Expiration Date Model / Serial / Lot Jean Bone Void 10ml Dbm Grftn Algrf Ptty Implanted:Qty: 1 on 06/04/2022 by Deon Taylor MD at [facility] N/A: Spine [employer] Inc 05/04/2025 [id number] / / [id number] 90mm Rods Implanted:Qty: 2 on 06/04/2022 by Deon Taylor MD at [facility] N/A: Spine Synthes Spine [id number] / / Jean Bone Void 10ml Dbm Grftn Algrf Ptty Implanted:Qty: 1 on 06/04/2022 by Deon Taylor MD at [facility] N/A: Spine [employer] 05/04/2025 [id number] / / [id number] Graft Bone Canc 4-9.5mm 15cc Frzdr Chp Implanted:Qty: 1 on 06/04/2022 by Deon Taylor MD at [facility] N/A: Spine [employer] 02/26/2027 [id number] / / [id number] Graft Bone Canc 4-9.5mm 30cc Algrf Frzdr Implanted:Qty: 1 on 06/04/2022 by Deon Taylor MD at [facility] N/A: Spine [employer] 12/27/2025 [id number] / / [id number] 3.5 X 14mm Screw Implanted:Qty: 4 on 06/04/2022 by Deon Taylor MD at [facility] N/A: Spine Synthes Spine [id number] / / 4.0x 20mm Screw Implanted:Qty: 2 on 06/04/2022 by Deon Taylor MD at [facility] N/A: Spine [employer]ynthe[employer] Spine [id number] / / 5.0 X 24mm Screw Implanted:Qty: 2 on 06/04/2022 by Deon Taylor MD at [facility] N/A: Spine [employer]ynthe[employer] Spine [id number] / / 4.5 X 26mm Screw Implanted:Qty: 2 on 06/04/2022 by Deon Taylor MD at [facility] N/A: Spine [employer] Spine [id number] / / Screw Caps Implanted:Qty: 10 on 06/04/2022 by Deon Taylor MD at [facility] N/A: Spine [employer] Spine [id number] / / Procedures Procedure Name Priority Date/Time Associated Diagnosis Comments BASIC METABOLIC PANEL (CALCIUM TOTAL) AM Draw 06/23/2022 3:06 AM CDT Coffee ground emesis HEMOGLOBIN A1C Routine 06/06/2022 3:07 AM CORN CHIP MAKER from Last 3 Months or Most Recently Relevant to Health Maintenance Results * (ABNORMAL) BASIC METABOLIC PANEL (CALCIUM TOTAL) (06/23/2022 3:06 AM T) BUN 10 7 - 26 mg/dL 06/23/2022 4:38 AM [facility] Creatinine 1.09(H) 0.56 - 0.96 mg/dL 06/23/2022 4:38 AM [facility] Sodium 131(L) 136 - 145 mmol/L 06/23/2022 4:38 AM [facility] Potassium 4.2 3.5 - 4.5 mmol/L 06/23/2022 4:38 AM [facility] Chloride 100 98 - 107 mmol/L 06/23/2022 4:38 AM [facility] CO2 22 22 - 29 mmol/L 06/23/2022 4:38 AM [facility] Glucose 111 70 - 115 mg/dL 06/23/2022 4:38 AM [facility] Calcium 8.2(L) 8.4 - 10.2 mg/dL 06/23/2022 4:38 AM [facility] Anion Gap 13 8 - 18 06/23/2022 4:38 AM [facility] BUN/Creatinine Ratio 9 7 - 23 06/23/2022 4:38 AM [facility] Osmolality Calculated 272 270 - 300 mOsm/kg 06/23/2022 4:38 AM [facility] eGFR by CKD-EPI 54(L) >=90 mL/min/1.7 3 m2 06/23/2022 4:38 AM [facility] Blood BLOOD SPECIMEN / Unknown Lab Venipuncture / Unknown 06/23/2022 3:06 AM CDT 06/23/2022 4:03 AM [facility] Anabell Hernandez PA-C LAB - CHEMISTRY ORD ERABLES [facility] [address] [place] [address], [facility] [phone] * HEMOGLOBIN A1C (06/06/2022 3:07 AM CORN CHIP MAKER) Hemoglobin A1c 5.3 <=5.6 % 06/06/2022 3:[address] [facility] Estimated Average Glucose 105 mg/dL 06/06/2022 3:38 PM [facility] Comment: HbA1c Interpretation: Normal : < 5.7% Pre-diabetes: 5.7-6.4% Diabetes: Equal to or greater than 6.5% Test results diagnostic of diabetes should be repeated for confirmation. Treatment target values recommended by ADA and other clinical organizations should be used to evaluate metabolic control in patients. Reference: [place] [employer], Standards of Care in Diabetes -2020 In patients 70 years and older consider HbA1c target range of 7.0-7.5% (Reference: Oswaldo Liz et al. JAMDA. 2012) The Sebia assay for the measurement of HbA1c is a National Glycohemoglobin Standardization Program (NGSP) certified method. Blood BLOOD SPECIMEN / Unknown Lab Venipuncture / Unknown 06/06/2022 3:07 AM [employer]N CH[employer]ER 06/06/2022 3:28 AM [facility] Ama Gonzalez MD LAB - CHEMISTRY ORDERABLES [facility] [address] [place] [address], [facility] [phone] from Last 3 Months or Most Recently Relevant to Health Maintenance Advance Directives * Full Code (Latest Code Status on File) Date Activated Date Inactivated Comments 06/20/2022 6:09 PM 06/23/2022 5:59 PM * Full Code Date Activated Date Inactivated Comments 06/04/2022 1:16 PM 06/08/2022 11:04 PM * Full Code Date Activated Date Inactivated Comments 02/15/2022 5:44 AM 02/19/2022 3:38 PM Care Teams Alignment Specialist Relationship Specialty Start Date End Date Karrie Phillips MD [address] [place] [address] PCP - General 03/13/22
--- OUTSIDE RECORDS SUMMARY | 2024-04-11 03:30 | XMS_ITS | Encounter Summary ---
Author Organization [facility] Address [address] [place] [address] Care Team Providers Care Senior Sales Operations Manager Name Role Phone Karrie Phillips MD Primary Care Provider [phone] Encounter Details Date Type Department Care Team (Late st Contact Info) Description 06/03/2023 Orders Only [facility] [address] [place] [address], [place] [address] Deon Taylor MD [address] [place] [address] [phone] S/P cervical spinal fusion Social History Tobacco Use Types Packs/Day Years [...] and heating? Not hard at all 06/04/2022 [facility] [place] of Occupat ional Health - Occupational Stress [...] place to sleep or slept in a group home (including now)? No 06/04/2022 Sex and Gender [...] No 06/04/2022 documented as of this encounter Plan of Treatment Upcoming Encounters Date Type Department Care Team (Late st Contact Info) Description 06/02/2024 1:45 PM PROJECT INTERN Office Visit [facility] [address] [place] [phone] Deon Taylor MD [address] [place] [address] documented as of this encounter Results * XR CERVICAL SPINE 2 OR 3VW (06/04/2023 1:57 PM PROJECT INTERN) Anatomical Region Laterality Modality Spine Radiographic Vivian ging 06/04/2023 1:57 PM PROJECT INTERN Impressions 06/04/2023 2:28 PM PROJECT INTERN IMPRESSION: Redemonstration of posterior instrumented spinal fusion hardware of C4-T2 with unchanged alignment. Report dictated by Joey Herman MD, (manager of radiology). I, Petar Spears MD have personally reviewed and interpreted this examination/study. > Interpreting Provider: Petar Spears MD on 06/04/2023 2:28 PM Narrative 06/04/2023 2:28 PM PROJECT INTERN PROCEDURE: ??XR CERVICAL SPINE 2 OR 3VW, DATE/TIME OF EXAM: ??06/04/2023 1:57 PM, LOCATION ??[facility] INDICATION: Z98.1: S/P cervical spinal fusion ADDITIONAL CLINICAL INFORMATION: Ordering Provider Reason For Exam: ??s/p cervical fusion COMPARISON: Cervical spine radiographs dated 12/04/2022. FINDINGS: Redemonstration posterior instrumented spinal fusion hardware C4-T2 with bilateral rods and screws with interbody grafts at C4-C5 and C5-C6. Alignment is unchanged with kyphosis at the cervical thoracic junction. No evidence of acute fracture. Multilevel degenerative changes. No prevertebral soft tissue swelling. Bone density and texture are normal. Procedure Note Petar Spears MD - 06/04/2023 PROCEDURE: XR CERVICAL SPINE 2 OR 3VW, DATE/TIME OF EXAM: 41:57 PM, LOCATION [facility] INDICATION: Z98.1: S/P cervical spinal fusion ADDITIONAL CLINICAL INFORMATION: Ordering Provider Reason For Exam: s/p cervical fusion COMPARISON: Cervical spine radiographs dated 12/04/2022. FINDINGS: Redemonstration posterior instrumented spinal fusion hardware C4-T2 with bilateral rods and screws with interbody grafts at C4-C5 and C5-C6. Alignment is unchanged with kyphosis at the cervical thoracic junction. No evidence of acute fracture. Multilevel degenerative changes. No prevertebral soft tissue swelling. Bone density and texture are normal. IMPRESSION: Redemonstration of posterior instrumented spinal fusion hardware ofC4-T2 with unchanged alignment. Report dictated by Joey Herman MD, (manager of radiology). I, Petar Spears MD have personally reviewed and interpreted this examination/study. > Interpreting Provider: Petar Spears MD on 06/04/2023 2:28 PM Deon Taylor MD DIAGNOSTIC IMAGING O RDERABLES documented in this encounter Visit Diagnoses Diagnosis S/P cervical spinal fusion- Primary Arthrodesis status S/P cervical spinal fusion Arthrodesis status documented in this encounter Care Teams Senior Sales Operations Manager Relationship Specialty Start Date End Date Karrie Phillips MD [address] [place] [address] PCP - General 03/13/22 documented as of this encounter
--- OUTSIDE RECORDS SUMMARY | 2024-04-11 03:30 | XMS_ITS | Encounter Summary ---
Author Organization [facility] Address [address] [place] [address] Care Team Providers Care Sealer Operator Name Role Phone Karrie Phillips MD Primary Care Provider [phone] Encounter Details Date Type Department Care Team (Late st Contact Info) Description 09/04/2022 Orders Only [facility] [address] [place] [address], [place] [address] Deon Taylor MD [address] [place] [address] [phone] S/P cervical spinal fusion Social History Tobacco [...] and heating? 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 [address] [place] [phone] Deon Taylor MD [address] [place] [address] documented as of this encounter Results * XR CERVICAL SPINE 2 OR 3VW (09/04/2022 2:09 PM CDT) Anatomical Region Laterality Modality Spine Radiographic Vivian ging 09/04/2022 2:11 PM CDT Narrative 09/04/2022 3:15 PM CDT PROCEDURE: ??XR CERVICAL SPINE 2 OR 3VW, DATE/TIME OF EXAM: ??09/04/2022 2:09 PM, LOCATION ??[facility] INDICATION: Z98.1: S/P cervical spinal fusion [...] normal. Report dictated by Jose Kohli MD (academic vice president). I, Tony Hansen MD have personally reviewed and interpreted this examination/study. > Interpreting Provider: Tony Hansen MD on 09/04/2022 3:15 PM Procedure Note Tony Hansen MD - 09/04/2022 PROCEDURE: XR CERVICAL SPINE 2 OR 3VW, DATE/TIME OF EXAM: 32:09 PM, LOCATION [facility] INDICATION: Z98.1: S/P cervical spinal fusion [...] soft tissues are normal. Report dictated by oJse Kohli MD (academic vice president). I, Tony Hansen MD have personally reviewed and interpreted this examination/study. > Interpreting Provider: Tony Hansen MD on 09/04/2022 3:15PM Doen Taylor MD DIAGNOSTIC IMAGING O RDERABLES documented in this encounter Visit Diagnoses Diagnosis S/P cervical spinal fusion- Primary Arthrodesis status S/P cervical spinal fusion Arthrodesis status documented in this encounter Care Teams Sealer Operator Relationship Specialty Start Date End Date Karrie Phillips MD [address] [place] [address] PCP - General 03/13/22 documented as of this encounter
--- OUTSIDE RECORDS SUMMARY | 2024-04-11 03:30 | XMS_ITS | Encounter Summary ---
Author Organization [facility] Address [address] [place] [address] Care Team Providers Care Scientific Technical Writer Name Role Phone Karrie Phillips MD Primary Care Provider [phone] Encounter Details Date Type Department Care Team (Latest Contact Info) Description 09/04/2022 Travel Social History Tobacco Use Types Packs/Day Years [...] file 05/31 Overall Financial Resource Strain (CARDIA) Leahe r Date Recorded How hard is it for you to pa y for the very basics like food, housing, medical care, and heating? Not hard at all 06/04/2022 [facility] [place] of Occupat ional Health - Occupational Stress [...] place to sleep or slept in a senior care (including now)? No 06/04/2022 Sex and Gender [...] st Contact Info) Description 06/02/2024 1:45 PM ONLINE COMMUNICATIONS SPECIALIST Office Visit [facility] [address] [place] [address], [place] [address] Deon Taylor MD [address] [place] [address] documented as of this encounter Visit Diagnoses Not on filedocumented in this encounter Care Teams Scientific Technical Writer Relationship Specialty Start Date End Date Karrie Phillips MD [address] [place], [place] [address] [address] PCP - General 03/13/22 documented as of this encounter
--- OUTSIDE RECORDS SUMMARY | 2024-04-11 03:30 | XMS_ITS | Referral Summary ---
Author Organization [facility] Address [address] [place] [address] Care Team Providers Care Photostat Operator Name Role Phone Karrie Phillips MD Primary Care Provider [phone] Source Comments [facility],non-owned Affiliates and Associated Physician Practices is amultiple site organization consisting of ambulatory clinics and hospital sitesin [place], [place], [place] and [place]. This disclosure is being madepursuant to the Care Everywhere program and may not contain all information available regarding this patient. Last updated 17.[facility] Allergies Active Allergy Reactions Criticality Noted Date [...] 24 hours. 02/19/2022 Active saline nasal spray ([place]; Baby [place]) 0.65 % nasal spray [place] 1 (one) spray into each nostril as [...] and heating? Not hard at all 06/04/2022 [facility] [place] of Occupat ional Health - Occupational Stress [...] place to sleep or slept in a prison (including now)? No 06/04/2022 Sex and Gender [...] lb 3.2 oz) 06/04/2023 2:02 P M AUTO FLEET MANAGER Height 154.9 cm (5' 1 ) 12/04/2022 2:47 PM CDT Body Mass Index 28.57 12/04/2022 2:47 PM CDT Functional Status Functional Status Response Date of [...] person have difficulty concentrating/remembering/making decisions? No 06/04/2022 Plan of Treatment Upcoming Encounters Date Type Department Care Team (Late st Contact Info) Description 06/02/2024 1:45 PM AUTO FLEET MANAGER Office Visit [facility] [address] [place] [address], [place] [address] Deon Taylor MD [address] [place] [address] Medical Devices Implanted Type Area Oracle Brm Developer Device Identifier Shelf Expiration Date Model / Serial / Lot Jean Bone Void 10ml Dbm Grftn Algrf Ptty Implanted:Qty: 1 on 06/04/2022 by Deon Taylor MD at [facility] N/A: Spine [employer] 05/04/2025 [id number] / / [id number] 90mm Rods Implanted:Qty: 2 on 06/04/2022 by Deon Taylor MD at [facility] N/A: Spine Synthes Spine [id number] / / Jean Bone Void 10ml Dbm Grftn Algrf Ptty Implanted:Qty: 1 on 06/04/2022 by Deon Taylor MD at [facility] N/A: Spine [employer] Inc 05/04/2025 [id number] / / [id number] Graft Bone Canc 4-9.5mm 15cc Frzdr Chp Implanted:Qty: 1 on 06/04/2022 by Deon Taylor MD at [facility] N/A: Spine Allosource 02/26/2027 [id number] / / [id number] Graft Bone Canc 4-9.5mm 30cc Algrf Frzdr Implanted:Qty: 1 on 06/04/2022 by Deon Taylor MD at [facility] N/A: Spine [employer]ource 12/27/2025 [id number] / / [id number] 3.5 X 14mm Screw Implanted:Qty: 4 on 06/04/2022 by Deon Taylor MD at [facility] N/A: Spine Synthes Spine [id number] / / 4.0x 20mm Screw Implanted:Qty: 2 on 06/04/2022 by Deon Taylor MD at [facility] N/A: Spine Synthes Spine [id number] / / 5.0 X 24mm Screw Implanted:Qty: 2 on 06/04/2022 by Deon Taylor MD at [facility] N/A: Spine Synthes Spine [id number] / / 4.5 X 26mm Screw Implanted:Qty: 2 on 06/04/2022 by Deon Taylor MD at [facility] N/A: Spine Synthes Spine [id number] / / Screw Caps Implanted:Qty: 10 on 06/04/2022 by Deon Taylor MD at [facility] N/A: Spine Synthes Spine [id number] / / Procedures Procedure Name Priority Date/Time Associated Diagnosis Comments BASIC METABOLIC PANEL (CALCIUM TOTAL) AM Draw 06/23/2022 3:06 AM CDT Coffee ground emesis HEMOGLOBIN A1C Routine 06/06/2022 3:07 AM AUTO FLEET MANAGER from Last 3 Months or Most Recently Relevant to Health Maintenance Results * (ABNORMAL) BASIC METABOLIC PANEL (CALCIUM TOTAL) (06/23/2022 3:06 AM CDT) BUN 10 7 - 26 mg/dL 06/23/2022 4:38 AM [facility] Creatinine 1.09(H) 0.56 - 0.96 mg/dL 06/23/2022 4:38 AM [facility] Sodium 131(L) 136 - 145 mmol/L 06/23/2022 4:38 AM [facility] Potassium 4.2 3.5 - 4.5 mmol/L 06/23/2022 4:38 AM [facility] Chloride 100 98 - 107 mmol/L 06/23/2022 4:38 AM [facility] CO2 22 22 - 29 mmol/L 06/23/2022 4:38 AM [facility] Glucose 111 70 - 115 mg/dL 06/23/2022 4:38 AM [facility] Calcium 8.2(L) 8.4 - 10.2 mg/dL 06/23/2022 4:38 AM [facility] Anion Gap 13 8 - 18 06/23/2022 4:38 AM [facility] BUN/Creatinine Ratio 9 7 - 23 06/23/2022 4:38 AM [facility] Osmolality Calculated 272 270 - 300 mOsm/kg 06/23/2022 4:38 AM [facility] eGFR by CKD-EPI 54(L) >=90 mL/min/1.7 3 m2 06/23/2022 4:38 AM CDT [facility] Blood BLOOD SPECIMEN / Unknown Lab Venipuncture / Unknown 06/23/2022 3:06 AM CDT 06/23/2022 4:03 AM CDT Anabell Hernandez PA-C LAB - CHEMISTRY ORD ERABLES Performing Organization Address [facility]/ZIP Co de Phone Number [facility] [address] [place] [address], [facility] [phone] * HEMOGLOBIN A1C (06/06/2022 3:07 AM AUTO FLEET MANAGER) Hemoglobin A1c 5.3 <=5.6 % 06/06/2022 3:38 PM [facility] Estimated Average Glucose 105 mg/dL 06/06/2022 3:38 PM [facility] Comment: HbA1c Interpretation: Normal : < 5.7% Pre-diabetes: 5.7-6.4% Diabetes: Equal to or greater than 6.5% Test results diagnostic of diabetes should be repeated for confirmation. Treatment target values recommended by ADA and other clinical organizations should be used to evaluate metabolic control in patients. Reference: [place] Diabetes Association, Standards of Care in Diabetes -2020 In patients 70 years and older consider HbA1c target range of 7.0-7.5% (Reference: Oswaldo Liz et al. JAMDA. 2012) The Sebia assay for the measurement of HbA1c is a National Glycohemoglobin Standardization Program (NGSP) certified method. Blood BLOOD SPECIMEN / Unknown Lab Venipuncture / Unknown 06/06/2022 3:07 AM AUTO FLEET MANAGER 06/06/2022 3:28 AM AUTO FLEET MANAGER Ama Gonzalez MD LAB - CHEMISTRY ORDERABLES Performing Organization Address City/[facility]/ZIP Co de Phone Number [facility] [address] [place] [phone], [place] [phone] from Last 3 Months or Most Recently Relevant to Health Maintenance Advance Directives * Full Code (Latest Code Status on File) Date Activated Date Inactivated Comments 06/20/2022 6:09 PM 06/23/2022 5:59 PM * Full Code Date Activated Date Inactivated Comments 06/04/2022 1:16 PM 06/08/2022 11:04 PM * Full Code Date Activated Date Inactivated Comments 02/15/2022 5:44 AM 02/19/2022 3:38 PM Care Teams Photostat Operator Relationship Specialty Start Date End Date Karrie Phillips MD [address] [place] [address] PCP - General 03/13/22
--- OUTSIDE RECORDS SUMMARY | 2024-04-11 03:30 | XMS_ITS | Encounter Summary ---
Author Organization [facility] Address [address] [place] [address] Care Team Providers Care High [employer] Library Media Specialist Name Role Phone Karrie Phillips MD Primary Care Provider [phone] Reason for Visit * Consult, Test & Treat (Routine) - Closed Specialty Diagnoses / Procedures Referred By Everardo fried Referred To Contact Orthopedic Surgery / Orthopedics Selfreferral, Patient Deon Taylor MD [address] [place] [address] Referral ID Status Reason Start Date Expiration Date Visits Re quested Visits Authorized [id number] Closed 12/04/2022 12/04/2023 1 1 Encounter Details Date Type Department Care Team (Late st Contact Info) Description 06/04/2023 1:45 PM ENGLISH TEACHER Office Visit [facility] [address] [place] [address], [place] [address] Deon Taylor MD [address] [place] [phone] S/P cervical spinal fusion (Primary Dx) Social [...] heating? Not hard at all 06/04/2022 [facility] [place] of Occupat ional Health - Occupational [...] place to sleep or slept in a fdc (including now)? No 06/04/2022 Sex and Gender [...] - Inhaled Oxygen Concentration - - Weight 68.6 kg (151 lb 3.2 oz) 06/04/2023 2:02 P M ENGLISH TEACHER Height - - Body Mass Index 28.57 12/04/2022 2:47 PM CDT documented in this encounter Functional [...] No 06/04/2022 documented as of this encounter Progress Notes * Deon Taylor MD - 06/04/2023 9:05 PM CST 73-year-old female who about 1 year ago underwent posterior cervical fusion with laminectomy for pseudoarthrosis status post prior anterior fusion surgery with resulting stenosis and myelopathy. Overall reports she is doing excellent. She is never really complained of any significant neck pain postoperatively. Denies any issues with balance or loss of hand dexterity. On exam today patient demonstrates 5 out of 5 strength in bilateral upper and lower extremities including deltoids biceps triceps wrist extensors wrist flexors shoe ironer strength interosseous muscles as well as hip flexors quads hamstrings gastrocs tib ant and EHL. On examination of C5-T1 and L2-S1 derma tomes patient does not endorse any areas of decreased sensation. There is no clonus, no Shy's and no hyperreflexia of their patellar or biceps tendons. X-rays demonstrate stable alignment of cervical spine stable position of hardware without any notedcomplications. 73-year-old female who returns for routine follow-up now 1 year out status post posterior cervical decompression and fusion. Overall doing excellent. Will plan to follow-up yearly for routine surveillance postoperatively. He is welcome to call anytime for follow-up sooner should she have any new symptoms or questions or concerns. This note was transcribed using [employer] dictation software and may include inaccuracies in director integrated which were unrecognized and not corrected. Please reach out to my clinical specialist Delaney De Luna RN at [phone] for any questions or concerns. Deon Taylor MD ISH TEACHER documented in this encounter Plan of Treatment Upcoming Encounters Date Type Department Care Team (Late st Contact Info) Description 06/02/2024 1:45 PM ENGLISH TEACHER Office Visit [facility] [address] [facility], [place] [address] Deon Taylor MD [address] [place] [address] documented as of this encounter Visit Diagnoses Diagnosis S/P cervical spinal fusion- Primary Arthrodesis status documented in this encounter Care Teams High School Library Media Specialist Relationship Specialty Start Date End Date Karrie Phillips MD [address] [place] [address] PCP - General 03/13/22 documented as of this encounter
--- OUTSIDE RECORDS SUMMARY | 2024-04-11 03:30 | XMS_ITS | Encounter Summary ---
Author Organization [facility] Address [address] [facility] [address] Care Team Providers Care Pharmacy Technician Name Role Phone Karrie Phillips MD Primary Care Provider [phone] Encounter Details Date Type Department Care Team (Latest Contact Info) Description 06/04/2023 Travel Social History Tobacco Use Types Packs/Day [...] and heating? Not hard at all 06/04/2022 [facility] [place] of Occupat ional Health - Occupational Stress [...] st Contact Info) Description 06/02/2024 1:45 PM BOTTLER Office Visit [facility] [address] [place] [address], [facility] [place] [address] Deon Taylor MD [address] [place] [id number] documented as of this encounter Visit Diagnoses Not on filedocumented in this encounter Care Teams Pharmacy Technician Relationship Specialty Start Date End Date Karrie Phillips MD [address] [place], [place] [address] [place] [address] PCP - General 03/13/22 documented as of this encounter
--- OUTSIDE RECORDS SUMMARY | 2024-04-11 03:30 | XMS_ITS | Encounter Summary ---
Author Organization [facility] Address [address] [facility] [facility] [place] [address] Care Team Providers Care Ice Resurfacing Machine Operators Name Role Phone Karrie Phillips MD Primary Care Provider [phone] Encounter Details Date Type Department Care Team (Latest Contact Info) Description 06/04/2023 1:51 PM AGRICULTURAL RESEARCH TECHNOLOGIST - 06/04/2023 11:59 PM AGRICULTURAL RESEARCH TECHNOLOGIST Hospital Encounter [facility] DIAGNOSTIC RAD CSM [address] [facility] [place] [phone] Deon Taylor MD [address] [place] [address] Discharge Disposition: Home or Self Care Social [...] and heating? Not hard at all 06/04/2022 [facility] [place] of Occupat ional Health - Occupational Stress [...] place to sleep or slept in a long-term (including now)? No 06/04/2022 Sex and Gender [...] mouth every evening 06/08/2022 saline nasal spray ([place]; Baby [place]) 0.65 % nasal spray [place] 1 (one) spray into each nostril as needed for Dry Nose 15 mL 02/19/2022 vitamin D3 (Cholecalciferol) 10 MCG (400 UNIT) tablet Take 2 (two) tablets by mouth once daily 06/09/2022 documented as of this encounter Plan of Treatment Upcoming Encounters Date Type Department Care Team (Late st Contact Info) Description 06/02/2024 1:45 PM AGRICULTURAL RESEARCH TECHNOLOGIST Office Visit [facility] [address] [facility], [place] [phone] eDon Taylor MD [facility] [place] [address] documented as of this encounter Procedures Procedure Name Priority Date/Time Associated Diagnosis Comments XR CERVICAL SPINE 2 OR 3VW Routine 06/04/2023 1:57 PM AGRICULTURAL RESEARCH TECHNOLOGIST S/P cervical spinal fusion documented in this encounter Results * XR CERVICAL SPINE 2 OR 3VW (06/04/2023 1:57 PM AGRICULTURAL RESEARCH TECHNOLOGIST) Anatomical Region Laterality Modality Spine Radiographic Vivian ging 06/04/2023 1:57 PM AGRICULTURAL RESEARCH TECHNOLOGIST Impressions 06/04/2023 2:28 PM AGRICULTURAL RESEARCH TECHNOLOGIST IMPRESSION: Redemonstration of posterior instrumented spinal fusion hardware of C4-T2 with unchanged alignment. Report dictated by Joey Herman MD, (resident program specialist). I, Petar Spears MD have personally reviewed and interpreted this examination/study. > Interpreting Provider: Petar Spears MD on 06/04/2023 2:28 PM Narrative 06/04/2023 2:28 PM AGRICULTURAL RESEARCH TECHNOLOGIST PROCEDURE: ??XR CERVICAL SPINE 2 OR 3VW, DATE/TIME OF EXAM: ??06/04/2023 1:57 PM, LOCATION ??[facility] INDICATION: Z98.1: S/P cervical spinal fusion ADDITIONAL [...] 3VW, DATE/TIME OF EXAM: 41:57 PM, LOCATION [facility] INDICATION: Z98.1: S/P cervical spinal fusion ADDITIONAL [...] alignment. Report dictated by Joey Herman MD, (resident program specialist). I, Petar Spears MD have personally reviewed and interpreted this examination/study. > Interpreting Provider: Petar Spears MD on 06/04/2023 2:28 PM Deon Taylor MD DIAGNOSTIC IMAGING O RDERABLES documented in this encounter Visit Diagnoses Diagnosis S/P cervical spinal fusion Arthrodesis status documented in this encounter Care Teams Ice Resurfacing Machine Operators Relationship Specialty Start Date End Date Karrie Phillips MD [facility] [place] [address] PCP - General 03/13/22 documented as of this encounter
--- OUTSIDE RECORDS SUMMARY | 2024-04-11 03:30 | XMS_ITS | Patient Health Summary ---
Author Organization [facility] [employer] Address [address] [place] [address] Care Team Providers Care Cd Mixer Name Role Phone Karrie Phillips MD Primary Care Provider [phone] Note from [facility],non-owned Affiliates and Associated Physician Practices is amultiple site organization consisting of ambulatory clinics and hospital sitesin [place], [place], [place] and [place]. This disclosure is being madepursuant to the Care Everywhere program and may not contain all information available regarding this patient. Last updated 17.[facility] [employer] Allergies * Cyclobenzaprine * Eggs * Fluoxetine * Latex * Naproxen * Other(demeral) * Sulfa Antibiotics(Urticaria) -Medium Criticality * Sulfamethoxazole W-Trimethoprim * Bethanechol Chloride Medications * Be aware that medications may not be up to date on this document. Alwaysverify current medications with the patient. * acetaminophen (Tylenol) 325 MG tablet(Started 02/19/2022) Take 2 (two) tablets by mouth every 6 hours as needed Maximum allowable Acetaminophen amount = 4 Grams (4000 mg) / 24 hours. * saline nasal spray ([place]; Baby Meg[place]el) 0.65 % nasal spray(Started 02/19/2022) [place] 1 (one) spray into each nostril as needed for Dry Nose * artificial tears ophthalmic solution(Started 02/19/2022) Instill 1 (one) drop into both eyes every 4 hours as needed * pantoprazole EC (Protonix) 40 MG tablet(Started 02/20/2022) Take 1 (one) tablet by mouth once daily * carvedilol (Coreg) 6.25 MG tablet Take 1 (one) tablet by mouth 2 times daily * latanoprost (Xalatan) 0.005 % ophthalmic solution(Started 03/07/2022) * buPROPion SR 12hr (Wellbutrin-SR) 100 MG tablet Take 1 (one) tablet by mouth 2 times daily * lisinopril (Prinivil; Zestril) 20 MG tablet Take 1 (one) tablet by mouth once daily * meclizine (Antivert) 25 MG tablet(Started 07/13/2021) meclizine 25 mg tablet 1 po tid prn * pravastatin (Pravachol) 40 MG tablet pravastatin 40 mg tablet TAKE 1 TABLET BY MOUTH DAILY * gabapentin (Neurontin) 300 MG capsule(Started 06/08/2022) Take 1 (one) capsule by mouth 3 times daily 3 refills by 06/08/2023 * QUEtiapine (SEROquel) 100 MG tablet(Started 06/08/2022) Take 1 (one) tablet by mouth every evening * vitamin D3 (Cholecalciferol) 10 MCG (400 UNIT) tablet(Started 06/09/2022) Take 2 (two) tablets by mouth once daily * escitalopram (Lexapro) 20 MG tablet(Started 06/23/2022) Take 0.5 (one-half) tablet by mouth once daily * ondansetron, disintegrating, (Zofran ODT) 4 MG tablet(Started 06/23/2022) Take 1 (one) tablet by mouth every 6 hours as needed for Nausea/Vomiting Allow tablet to dissolve on the tongue * furosemide (Lasix) 20 MG tablet Take 1 (one) tablet by mouth every 2 days * citalopram (CeleXA) 40 MG tablet 1 tablet Orally Once a day * calcitriol (Rocaltrol) 0.25 MCG capsule(Started 11/05/2022) Active Problems Problem Noted Date Diagnosed Date [...] Date Resolved Date Pneumonia 12/07/2021 04/10/2022 Immunizations * COVID JORJE PRIMARY 18+YR(Given 06/08/2020) * DTP(Given 07/18/2011) * FLU VACCINE QUAD IIV4 SPLIT 0.25 ML IM(Given 12/09/2019, 12/30/2018) * INFLUENZA VACCINE, HIGH-DOSE, QUADR. (FLUZONE HIGH-DOSE QUADRIVALENT; 65Y+), 0.7 ML (HD-IIV4)(Given 12/08/2019, 01/25/2019) * PNEUMOCOCCAL PPSV23(Given 07/01/2019) * Pneumococcal Pcv13 Conj(Given 06/30/2018) * Zoster Hzv Vacc Recombinant Inj Im(Given 03/18/2019, 01/12/2019) Social History Tobacco Use Types Packs/Day Years [...] and heating? Not hard at all 06/04/2022 [facility] [place] [facility] Occupat ional [facility] - Occupational Stress [...] place to sleep or slept in a residential (including now)? No 06/04/2022 Sex and Gender [...] lb 3.2 oz) 06/04/2023 2:02 P M [employer] Height 154.9 cm (5' 1 ) 12/04/2022 2:47 PM CDT Body Mass Index 28.57 12/04/2022 2:47 PM CDT Medical Devices Implanted Type Area Liner Roll Changer Device Identifier Shelf Expiration Date Model / Serial / Lot Jean Bone Void 10ml Dbm Grftn Algrf Ptty Implanted:Qty: 1 on 06/04/2022 by Deon Taylor MD at [facility] N/A: Spine [employer] 05/04/2025 [id number] / / [id number] 90mm Rods Implanted:Qty: 2 on 06/04/2022 by Deon Taylor MD at [facility] N/A: Spine Synthes Spine [id number] / / Jean Bone Void 10ml Dbm Grftn Algrf Ptty Implanted:Qty: 1 on 06/04/2022 by Deon Taylor MD at [facility] N/A: Spine [employer] 05/04/2025 [id number] / / [id number] Graft Bone Canc 4-9.5mm 15cc Frzdr Chp Implanted:Qty: 1 on 06/04/2022 by Deon Taylor MD at [facility] N/A: Spine [employer] 02/26/2027 [id number] / / [id number] Graft Bone Canc 4-9.5mm 30cc Algrf Frzdr Implanted:Qty: 1 on 06/04/2022 by Deon Taylor MD at [facility] N/A: Spine [employer] 12/27/2025 [id number] / / [id number] 3.5 X 14mm Screw Implanted:Qty: 4 on 06/04/2022 by Deon Taylor MD at [facility] N/A: Spine [employer]s Spine [id number] / / 4.0x 20mm Screw Implanted:Qty: 2 on 06/04/2022 by Deon Taylor MD at [facility] N/A: Spine [employer] Spine [id number] / / 5.0 X 24mm Screw Implanted:Qty: 2 on 06/04/2022 by Deon Taylor MD at [facility] N/A: Spine [employer] Spine [id number] / / 4.5 X 26mm Screw Implanted:Qty: 2 on 06/04/2022 by Deon Taylor MD at [facility] N/A: Spine [employer] Spine [id number] / / Screw Caps Implanted:Qty: 10 on 06/04/2022 by Deon Taylor MD at [facility] N/A: Spine [employer] Spine [id number] / / Procedures * XR CERVICAL SPINE 2 OR 3VW(Performed 06/04/2023) Performed for S/P cervical spinal fusion * XR CERVICAL SPINE 2 OR 3VW(Performed 12/04/2022) Performed for S/P cervical spinal fusion * XR CERVICAL SPINE 2 OR 3VW(Performed 09/04/2022) Performed for S/P cervical spinal fusion * XR CERVICAL SPINE 2 OR 3VW(Performed 07/18/2022) Performed for Status post orthopedic surgery, follow-up exam * XR THORACIC SPINE 2VW(Performed 07/18/2022) Performed for Degeneration of cervical intervertebral disc * CBC W/O DIFFERENTIAL(Performed 06/23/2022) Performed for Coffee ground emesis * MAGNESIUM BLOOD(Performed 06/23/2022) Performed for Coffee ground emesis * BASIC METABOLIC PANEL (CALCIUM TOTAL)(Performed 06/23/2022) Performed for Coffee ground emesis * GLUCOSE - POINT OF CARE(Performed 06/22/2022) * GLUCOSE - POINT OF CARE(Performed 06/22/2022) * OT EVAL AND TREAT(Performed 06/22/2022) * PT EVAL AND TREAT(Performed 06/22/2022) * MAGNESIUM BLOOD(Performed 06/22/2022) Performed for Dizziness * RENAL FUNCTION PANEL(Performed 06/22/2022) Performed for Dizziness * CBC W/O DIFFERENTIAL(Performed 06/22/2022) Performed for Coffee ground emesis * CORTISOL BLOOD AM(Performed 06/22/2022) Performed for Dizziness * GLUCOSE - POINT OF CARE(Performed 06/21/2022) * PATHOLOGY TISSUE(Performed 06/21/2022) Performed for Coffee ground emesis * WI ESOPHAGEAL CAPSULE ENDOSCOPY(Performed 06/21/2022) Performed for Coffee ground emesis * WI ED EGD FLEX TRANSORAL DX(Performed 06/21/2022) Performed for Coffee ground emesis * EGD(Performed 06/21/2022) * CARDIAC EKG ORDER(Performed 06/21/2022) * GLUCOSE - POINT OF CARE(Performed 06/21/2022) * GLUCOSE - POINT OF CARE(Performed 06/21/2022) * CBC W AUTO DIFFERENTIAL(Performed 06/21/2022) Performed for Anemia, unspecified type * COMPREHENSIVE METABOLIC PANEL(Performed 06/21/2022) Performed for Dizziness * URINALYSIS REFLEX TO MICROSCOPIC NO CULTURE(Performed 06/21/2022) * HEMOGLOBIN(Performed 06/20/2022) Performed for Anemia, unspecified type * B-TYPE NATRIURETIC PEPTIDE(Performed 06/20/2022) Performed for Dizziness * CT ANGIO ABDOMEN PELVIS(Performed 06/20/2022) Performed for Abdominal pain, left upper quadrant * XR CERVICAL SPINE 2 OR 3VW(Performed 06/20/2022) Performed for Dizziness, Shortness of breath * XR CHEST 2VW(Performed 06/20/2022) Performed for Shortness of breath * TYPE + SCREEN PANEL(Performed 06/20/2022) * LACTIC ACID BLOOD(Performed 06/20/2022) * LIPASE BLOOD(Performed 06/20/2022) * PT-INR SLH(Performed 06/20/2022) * CBC W/O DIFFERENTIAL(Performed 06/20/2022) * TROPONIN-I HIGH SENSITIVE REFLEX 1HOUR(Performed 06/20/2022) * TROPONIN-I HIGH SENSITIVE BASELINE + 1HR(Performed 06/20/2022) * COMPREHENSIVE METABOLIC PANEL(Performed 06/20/2022) * CBC W AUTO DIFFERENTIAL(Performed 06/20/2022) * EKG 12-LEAD(Performed 06/20/2022) Performed for Dizziness * GLUCOSE - POINT OF CARE(Performed 06/08/2022) * PHOSPHORUS BLOOD(Performed 06/08/2022) * MAGNESIUM BLOOD(Performed 06/08/2022) * CBC W/O DIFFERENTIAL(Performed 06/08/2022) Performed for Degeneration of cervical intervertebral disc * BASIC METABOLIC PANEL (CALCIUM TOTAL)(Performed 06/08/2022) Performed for Degeneration of cervical intervertebral disc * GLUCOSE - POINT OF CARE(Performed 06/07/2022) * GLUCOSE - POINT OF CARE(Performed 06/07/2022) * GLUCOSE - POINT OF CARE(Performed 06/07/2022) * GLUCOSE - POINT OF CARE(Performed 06/07/2022) * GLUCOSE - POINT OF CARE(Performed 06/07/2022) * PHOSPHORUS BLOOD(Performed 06/07/2022) * MAGNESIUM BLOOD(Performed 06/07/2022) * CBC W/O DIFFERENTIAL(Performed 06/07/2022) Performed for Degeneration of cervical intervertebral disc * BASIC METABOLIC PANEL (CALCIUM TOTAL)(Performed 06/07/2022) Performed for Degeneration of cervical intervertebral disc * GLUCOSE - POINT OF CARE(Performed 06/06/2022) * GLUCOSE - POINT OF CARE(Performed 06/06/2022) * GLUCOSE - POINT OF CARE(Performed 06/06/2022) * TRANSFUSE RED BLOOD CELL LEUKOREDUCED UNIT(S)(Performed 06/06/2022) * PREPARE RBC LEUKOREDUCED UNIT(Performed 06/06/2022) * GLUCOSE - POINT OF CARE(Performed 06/06/2022) * FOLATE(Performed 06/06/2022) * VITAMIN B12(Performed 06/06/2022) * FERRITIN(Performed 06/06/2022) * IRON + TRANSFERRIN PANEL(Performed 06/06/2022) * PHOSPHORUS BLOOD(Performed 06/06/2022) * MAGNESIUM BLOOD(Performed 06/06/2022) * HEMOGLOBIN A1C(Performed 06/06/2022) * PTH INTACT W/O CALCIUM(Performed 06/06/2022) * VITAMIN D 25-HYDROXY(Performed 06/06/2022) * CBC W/O DIFFERENTIAL(Performed 06/06/2022) Performed for Degeneration of cervical intervertebral disc * BASIC METABOLIC PANEL (CALCIUM TOTAL)(Performed 06/06/2022) Performed for Degeneration of cervical intervertebral disc * GLUCOSE - POINT OF CARE(Performed 06/05/2022) * GLUCOSE - POINT OF CARE(Performed 06/05/2022) * GLUCOSE - POINT OF CARE(Performed 06/05/2022) * GLUCOSE - POINT OF CARE(Performed 06/05/2022) * CBC W/O DIFFERENTIAL(Performed 06/05/2022) * XR CERVICAL SPINE 2 OR 3VW(Performed 06/05/2022) Performed for Degeneration of cervical intervertebral disc * GLUCOSE - POINT OF CARE(Performed 06/05/2022) * CBC W/O DIFFERENTIAL(Performed 06/05/2022) Performed for Degeneration of cervical intervertebral disc * BASIC METABOLIC PANEL (CALCIUM TOTAL)(Performed 06/05/2022) Performed for Degeneration of cervical intervertebral disc * GLUCOSE - POINT OF CARE(Performed 06/04/2022) * GLUCOSE - POINT OF CARE(Performed 06/04/2022) * FL JOSÉ LUIS SURGERY(Performed 06/04/2022) Performed for Degeneration of cervical intervertebral disc * ENDOTRACHEAL TUBE NOTE(Performed 06/04/2022) * ARTERIAL LINE NOTE(Performed 06/04/2022) * FUSION POSTERIOR CERVICAL (PCF)(Performed 06/04/2022) Performed for Cervical myelopathy (HCC) * GLUCOSE - POINT OF CARE(Performed 06/04/2022) * TYPE + SCREEN PANEL(Performed 06/04/2022) Performed for Preop examination * TYPE + SCREEN PANEL(Performed 05/15/2022) Performed for Preop examination * BASIC METABOLIC PANEL (CALCIUM TOTAL)(Performed 05/15/2022) Performed for Preop examination * CBC W/O DIFFERENTIAL(Performed 05/15/2022) Performed for Preop examination * XR CERVICAL SPINE 2 OR 3VW(Performed 03/13/2022) Performed for Neck pain * CORTISOL BLOOD AM(Performed 02/19/2022) * CORTISOL BLOOD AM(Performed 02/19/2022) * CORTISOL BLOOD AM(Performed 02/19/2022) * BASIC METABOLIC PANEL (CALCIUM TOTAL)(Performed 02/19/2022) * BASIC METABOLIC PANEL (CALCIUM TOTAL)(Performed 02/18/2022) * BASIC METABOLIC PANEL (CALCIUM TOTAL)(Performed 02/18/2022) * OSMOLALITY URINE(Performed 02/17/2022) * SODIUM URINE RANDOM(Performed 02/17/2022) * CBC W/O DIFFERENTIAL(Performed 02/17/2022) Performed for Syncope and collapse * BASIC METABOLIC PANEL (CALCIUM TOTAL)(Performed 02/17/2022) Performed for Syncope and collapse * MRI CERVICAL SPINE WO CONTRAST(Performed 02/16/2022) Performed for Degeneration of cervical intervertebral disc * CBC W/O DIFFERENTIAL(Performed 02/16/2022) Performed for Syncope and collapse * HEMOGLOBIN A1C(Performed 02/16/2022) Performed for DM (diabetes mellitus) type II, controlled, with peripheral vascular disorder (HCC) * TSH REFLEX FREE T4(Performed 02/16/2022) Performed for Syncope and collapse * MAGNESIUM BLOOD(Performed 02/16/2022) Performed for Syncope and collapse * RENAL FUNCTION PANEL(Performed 02/16/2022) Performed for Syncope and collapse * GLUCOSE - POINT OF CARE(Performed 02/16/2022) * GLUCOSE - POINT OF CARE(Performed 02/16/2022) * CT CERVICAL SPINE WO CONTRAST(Performed 02/15/2022) Performed for Multiple closed fractures of facial bone, initial encounter ([facility]) * GLUCOSE - POINT OF CARE(Performed 02/15/2022) * GLUCOSE - POINT OF CARE(Performed 02/15/2022) * SARS-COV-2 (COVID-19)+INFLU A+B PCR RAPID(Performed 02/15/2022) Performed for Trauma * VAS CAROTID DUPLEX BILATERAL(Performed 02/15/2022) Performed for Syncope and collapse * GLUCOSE - POINT OF CARE(Performed 02/15/2022) * CARDIAC EKG ORDER(Performed 02/15/2022) * ECHO COMPLETE(Performed 02/15/2022) Performed for Syncope and collapse * URINALYSIS REFLEX TO MICROSCOPIC NO CULTURE(Performed 02/15/2022) * EKG 12-LEAD(Performed 02/15/2022) Performed for Syncope and collapse * TROPONIN I(Performed 02/14/2022) * TSH REFLEX FREE T4(Performed 02/14/2022) * COMPREHENSIVE METABOLIC PANEL(Performed 02/14/2022) * CBC W AUTO DIFFERENTIAL(Performed 02/14/2022) * XR CHEST 1VW PORTABLE(Performed 02/14/2022) Performed for Syncope and collapse * MRI CERVICAL SPINE WWO CONT(Performed 11/11/2009) Results * XR CERVICAL SPINE 2 OR 3VW (06/04/2023 1:57 PM [employer]) Only the most recent of7 resultswithin the time period is included. Anatomical Region Laterality Modality Spine Radiographic Vivian ging 06/04/2023 1:57 PM [employer] Impressions 06/04/2023 2:28 PM [employer] IMPRESSION: Redemonstration of posterior instrumented spinal fusion hardware of C4-T2 with unchanged alignment. Report dictated by Joey Herman MD, (vice president of finance). I, Petar Spears MD have personally reviewed and interpreted this examination/study. > Interpreting Provider: Petar Spears MD on 06/04/2023 2:28 PM Narrative 06/04/2023 2:28 PM [employer] PROCEDURE: ??XR CERVICAL SPINE 2 OR 3VW, DATE/TIME OF EXAM: ??06/04/2023 1:57 PM, LOCATION ??[facility] INDICATION: Z98.1: S/P cervical spinal [...] 3VW, DATE/TIME OF EXAM: 41:57 PM, LOCATION [facility] INDICATION: Z98.1: S/P cervical spinal [...] alignment. Report dictated by Joey Herman MD, (vice president of finance). Petar Narvaez MD have personally reviewed and interpreted this examination/study. > Interpreting Provider: Petar Spears MD on 06/04/2023 2:28 PM Deon Taylor MD DIAGNOSTIC IMAGING O RDERABLES * XR THORACIC SPINE 2VW (07/18/2022 11:04 AM CDT) Anatomical Region Laterality Modality Spine Radiographic Vivian ging 07/18/2022 11:1 3 AM CDT Impressions 07/18/2022 11:31 AM CDT IMPRESSION: Instrumented spinal fusion from C4 to T2, unchanged in alignment. > Dictated by Carlos Mcmanus MD I, Stephen Huebner, MD have personally reviewed and interpreted this examination/study. > Interpreting Provider: Petar Spears MD on 07/18/2022 11:31 AM Narrative 07/18/2022 11:31 AM CDT PROCEDURE: ??XR THORACIC SPINE 2VW, XR CERVICAL SPINE 2 OR 3VW DATE/TIME OF EXAM: ??07/18/2022 11:04 AM CLINICAL INFORMATION: None relevant/not provided if blank. Indication: M50.30: Degeneration of cervical intervertebral disc Additional History: COMPARISON: X-ray cervical spine 06/20/2022 FINDINGS: Cervical spine: A cervical collar is present. Skin luba removed. There is instrumented spinal fusion including posterior rods and screws from C4 to T2. There are interbody grafts at C4-5 and C5-6. Instrumentation is intact. The osseous alignment is unchanged. Multilevel degenerative changes, including severe disc space narrowing at C6-7 and C7-T1. Thoracic spine: Cervicothoracic instrumented spinal fusion as noted above. There is dextroscoliosis in the upper to mid thoracic spine, levoscoliosis in the lower thoracic spine, dextroscoliosis of the lumbar spine. Mild to moderate degenerative changes. Procedure Note Petar Spears MD - 07/18/2022 PROCEDURE: XR THORACIC SPINE 2VW, XR CERVICAL SPINE 2 OR 3VW DATE/TIME OF EXAM: 07/18/2022 11:04 AM CLINICAL INFORMATION: None relevant/not provided if blank. Indication: M50.30: Degeneration of cervical intervertebral disc Additional History: COMPARISON: X-ray cervical spine 06/20/2022 FINDINGS: Cervical spine: A cervical collar is present. Skin luba removed. There isinstrumented spinal fusion including posterior rods and screws from C4 to T2. Thereare interbody grafts at C4-5 and C5-6. Instrumentation is intact. Theosseous alignment is unchanged. Multilevel degenerative changes, includingsevere disc space narrowing at C6-7 and C7-T1. Thoracic spine: Cervicothoracic instrumented spinal fusion as noted above. There is dextroscoliosis in the upper to mid thoracic spine, levoscoliosis in the lower thoracic spine, dextroscoliosis of the lumbar spine. Mild tomoderate degenerative changes. IMPRESSION: Instrumented spinal fusion from C4 to T2, unchanged in alignment. > Dictated by Carlos Mcmanus MD I, Petar Spears MD have personally reviewed and interpreted this examination/study. > Interpreting Provider: Petar Spears MD on 07/18/2022 11:31 AM Lyla Blackwell NON EMERGENCY SERVICES AMBULANCE DRIVER-[employer]TERN[employer]KER DIAGNOSTIC IMAG ING ORDERABLES * (ABNORMAL) CBC W/O DIFFERENTIAL (06/23/2022 3:47 AM CDT) Only the most recent of11 resultswithin the time period is included. WBC 7.7 3.5 - 10.5 10? 3 /uL 06/23/2022 4:17 AM CDT [facility] RBC 2.66(L) 3.80 - 5.20 10? 6 /uL 06/23/2022 4:17 AM CDT [facility] Hemoglobin 8.0(L) 12.0 - 15.6 g/dL 06/23/2022 4:17 AM [facility] Hematocrit 24.2(L) 35.0 - 45.0 % 06/23/2022 4:17 AM [facility] MCV 91.0 80.7 - 98.3 fL 06/23/2022 4:17 AM [facility] MCH 30.1 26.7 - 34.0 pg 06/23/2022 4:17 AM [facility] MCHC 33.1 30.8 - 35.9 g/dL 06/23/2022 4:17 AM [facility] RDW-SD 45.0 36.0 - 50.0 fL 06/23/2022 4:17 AM [facility] RDW-CV 13.7 11.2 - 14.8 % 06/23/2022 4:17 AM [facility] Platelet Count 305 150 - 400 10? 3 /uL 06/23/2022 4:17 AM [facility] MPV 9.7 9.4 - 12.9 fL 06/23/2022 4:17 AM [facility] nRBC Absolute 0.00 0 10? 3 /uL 06/23/2022 4:17 AM [facility] nRBC Auto 0.0 0 /100 WBC 06/23/2022 4:17 AM [facility] Blood BLOOD SPECIMEN / Unknown Lab Venipuncture / Unknown 06/23/2022 3:47 AM CDT 06/23/2022 4:10 AM CDT Ori Iyer PA-C LAB - HEMATOLOGY OR DERABLES [facility] [address] [place] [id number], [facility] [phone] * (ABNORMAL) BASIC METABOLIC PANEL (CALCIUM TOTAL) (06/23/2022 3:06 AM CDT) Only the most recent of10 resultswithin the time period is included. BUN 10 7 - 26 mg/dL 06/23/2022 4:38 AM [facility] Creatinine 1.09(H) 0.56 - 0.96 mg/dL 06/23/2022 4:38 AM [facility] Sodium 131(L) 136 - 145 mmol/L 06/23/2022 4:38 AM [facility] Potassium 4.2 3.5 - 4.5 mmol/L 06/23/2022 4:38 AM [facility] Chloride 100 98 - 107 mmol/L 06/23/2022 4:38 AM [facility] CO2 22 22 - 29 mmol/L 06/23/2022 4:38 AM [facility] Glucose 111 70 - 115 mg/dL 06/23/2022 4:38 AM [facility] Calcium 8.2(L) 8.4 - 10.2 mg/dL 06/23/2022 4:38 AM [facility] Anion Gap 13 8 - 18 06/23/2022 4:38 AM [facility] BUN/Creatinine Ratio 9 7 - 23 06/23/2022 4:38 AM [facility] Osmolality Calculated 272 270 - 300 mOsm/kg 06/23/2022 4:38 AM [facility] eGFR by CKD-EPI 54(L) >=90 mL/min/1.7 3 m2 06/23/2022 4:38 AM [facility] Blood BLOOD SPECIMEN / Unknown Lab Venipuncture / Unknown 06/23/2022 3:06 AM CDT 06/23/2022 4:03 AM T Anabell Hernandez PA-C LAB - CHEMISTRY ORD ERABLES [facility] [address] [place] [address], [facility] [phone] * MAGNESIUM BLOOD (06/23/2022 3:06 AM CDT) Only the most recent of6 resultswithin the time period is included. Magnesium 2.3 1.6 - 2.6 mg/dL 06/23/2022 4:41 AM [facility] Blood BLOOD SPECIMEN / Unknown Lab Venipuncture / Unknown 06/23/2022 3:06 AM CDT 06/23/2022 4:03 AM CDT Anabell Hernandez PA-C LAB - CHEMISTRY ORD ERABLES Performing Organization Address City/[facility]/ZIP Co de Phone Number [facility] [address] [place] [id number], [facility] [phone] * GLUCOSE - POINT OF CARE (06/22/2022 4:11 PM CDT) Only the most recent of28 resultswithin the time period is included. Glucose WB/POC 105 70 - 115 mg/dL 06/22/2022 4:12 PM CDT [facility] Specimen Type Arterial 06/22/2022 4:12 PM CDT [facility] Blood BLOOD SPECIMEN / Unknown 06/22/2022 4:11 PM CDT 06/22/2022 4:12 PM CDT Abeba Will DO LAB - POINT OF CARE ORDERABLES Performing Organization Address [facility]/ZIP Co de Phone Number [address] [address], [place] [phone] * (ABNORMAL) RENAL FUNCTION PANEL (06/22/2022 2:34 AM CDT) Only the most recent of2 resultswithin the time period is included. BUN 13 7 - 26 mg/dL 06/22/2022 3:29 AM [facility] Creatinine 1.07(H) 0.56 - 0.96 mg/dL 06/22/2022 3:29 AM [facility] Sodium 132(L) 136 - 145 mmol/L 06/22/2022 3:29 AM T [facility] Potassium 3.8 3.5 - 4.5 mmol/L 06/22/2022 3:29 AM [facility] Chloride 99 98 - 107 mmol/L 06/22/2022 3:29 AM [facility] CO2 25 22 - 29 mmol/L 06/22/2022 3:29 AM T [facility] Glucose 126(H) 70 - 115 mg/dL 06/22/2022 3:29 AM T [facility] Albumin 2.8(L) 3.4 - 5.0 g/dL 06/22/2022 3:29 AM [facility] Calcium 8.5 8.4 - 10.2 mg/dL 06/22/2022 3:29 AM [facility] Phosphorus 2.8(L) 2.9 - 5.1 mg/dL 06/22/2022 3:29 AM [facility] Anion Gap 12 8 - 18 06/22/2022 3:29 AM [facility] BUN/Creatinine Ratio 12 7 - 23 06/22/2022 3:29 AM [facility] Osmolality Calculated 276 270 - 300 mOsm/kg 06/22/2022 3:29 AM [facility] eGFR by CKD-EPI 55(L) >=90 mL/min/1.7 3 m2 06/22/2022 3:29 AM [facility] Blood BLOOD SPECIMEN / Unknown Lab Venipuncture / Unknown 06/22/2022 2:34 AM CDT 06/22/2022 3:02 AM CDT Ori Iyer PA-C LAB - CHEMISTRY ORD ERABLES [facility] [address] [place] [id number], [facility] [phone] * CORTISOL BLOOD AM (06/22/2022 2:34 AM CDT) Only the most recent of4 resultswithin the time period is included. Cortisol AM 14.3 3.7 - 19.4 ug/dL 06/22/2022 3:49 AM CDT [facility] Blood BLOOD SPECIMEN / Unknown Lab Venipuncture / Unknown 06/22/2022 2:34 AM CDT 06/22/2022 3:02 AM CDT Narrative [facility] - 06/22/2022 3:49 AM CDT Normal cortisol levels are generally highest in the morning hours and lowest from late evening through the sheet metal smith 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 ??The PM measurements of cortisol run approximately one-half to one-third of the AM values. Ori Iyer PA-C LAB - CHEMISTRY ORD ERABLES [facility] [address] [place] [address], [facility] [phone] * PATHOLOGY TISSUE (06/21/2022 4:40 PM CDT) Case Report Surgical Pathology Report ? Case: [id number] ? Authorizing Provider: ??Carmen Morales MD ? Collected: ? 06/21/2022 04:40 PM ? Ordering Location: ? [facility] ?Received: ?06/22/2022 08:59 AM ? Pathologist: ? Hansa Gusman MD ? Specimen: ?Small Bowel, small bowel biopsy r/o celiac ? 06/25/2022 2:27 PM CDT [facility] Final Diagnosis Small intestine, small bowel, biopsy (A): - No histopathologic abnormality - Intact villous and crypt architecture without increased intraepithelial lymphocytes 06/25/2022 2:27 PM CDT [facility] Microscopic Description and Comment Microscopic examination substantiates the final diagnosis. 06/25/2022 2:27 PM T [facility] Clinical History The patient is a 72-year-old woman presented with coffee-ground emesis who underwent upper GI endoscopy. 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 Duodenal bulb erythema, biopsied for evaluation of celiac disease. 06/25/2022 2:27 PM T [facility] Gross Description The requisition and specimen(s) are identified with the patient's name Kandace Cole. Received in formalin, specimen A , are 5 pink-freeman tissues, 0.3-0.9 cm in greatest dimension and 2.3 x 0.3 x 0.2 cm in aggregate, submitted in toto in cassette A1. DF 06/25/2022 2:27 PM T [facility] Disclaimer The performance characteristics of all immunohistochemical and indirect immunofluorescence stains (if any) cited in this report were determined by the Histopathology Laboratory of [facility]. Some of these tests were developed by our own laboratory and have not been cleared or approved by the US Food and Drug Administration. The FDA does not require this test to go through premarket FDA review. These tests are used for clinical purposes. They should not be regarded as investigational or for research. This laboratory is certified under the Clinical Laboratory Improvement Amendments (CLIA) as qualified to perform high complexity clinical laboratory testing. This case has been personally reviewed and interpreted by the attending (teaching) pathologist. 06/25/2022 2:27 PM CDT [facility] Embedded Images 06/25/2022 2:27 PM T [facility] Resection without Tumor SMALL BOWEL RESECTION SPECIMEN / Unknown 06/21/2022 4:40 PM CDT 06/22/2022 8:59 AM CDT Comment:Pre-op diagnosis: Coffee ground emesis Carmen Morales MD LAB - PATHOLOGY/CYTO LOGY ORDERABLES [facility] [address] [phone] * EGD (06/21/2022 4:24 PM CDT) Report Endoscopy POC Endoscopy Department Report __ _ Patient Name: Kandace Cole ?Procedure Date: 06/21/2022 4:24 PM ?Date of : 1950 Classification: Inpatient ? Gender: Female Ethnicity: Not or ? Race: White __ _ Providers: ?Evan Benson (Fellow) Referring MD: ? Procedure: ?Upper GI endoscopy Indications: ?Coffee-ground emesis Medications: ?Monitored Anesthesia Care Patient Profile: ?Patient with coffee ground emesis here for EGD Description of Procedure: After obtaining informed consent, the endoscope was ?passed under direct vision. Throughout the ?procedure, the patient's blood pressure, pulse, and ?oxygen saturations were monitored continuously. The ?[id number]-HQ190 was introduced through the mouth, and ?advanced to the second part of duodenum. The upper ?GI endoscopy was accomplished without difficulty. ?The patient tolerated the procedure well. ? Findings: ? Esophagogastric landmarks were identified: the Z-line was found at 25 ? cm, the gastroesophageal junction was found at 34 cm and the site of ? hiatal narrowing was found at 38 cm from the incisors. ? 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 The maximum longitudinal extent of these mucosal changes was ? 9 cm in length. No evidence of esophagitis. ? There was a 4cm hiatal hernia without Jeremy erosions. ? The exam of the esophagus was otherwise normal. ? The stomach was normal. ? The examined duodenum was notable for mild bulb erythema. Biopsies for ? histology were taken with a cold forceps for evaluation of celiac ? disease. ? Using the endoscope, the video capsule enteroscope was advanced and ? deployed into the duodenal bulb. ? Estimated Blood Loss: ? Estimated blood loss: none. Complications: ?No immediate complications. Impression: ? - Esophagogastric landmarks identified. ?- Esophageal mucosal changes secondary to ?established long-segment Ferrell's disease. ?- Normal stomach. ?- Duondeal bulb erythema. Biopsied. ?- Successful completion of the Video Capsule ?Enteroscope placement. ?- No explanation for coffee ground emesis found Recommendation: ? - Return patient to hospital [facility] for ongoing care. ?- Clear liquids at 18:45, then light meal at 20:45 ?(homer) ?- Further recs per inpatient team ?- Await biopsy results ? Attending Participation: ??I was present and participated during the entire ?procedure, including non-lee portions. ? Procedure Code(s): ? --- Professional --- ? 32768, Esophagogastroduode noscopy, flexible, transoral; with biopsy, ? single or multiple Diagnosis Code(s): ?--- Professional --- ?K22.70, Ferrell's esophagus without dysplasia ?K92.0, Hematemesis CPT copyright 2019 [employer]. All rights reserved. The codes documented in this report are preliminary and upon revenue cycle consultant review may be revised to meet current compliance requirements. Carmen Morales, 06/21/2022 5:01:11 PM Note Initiated On: 06/21/2022 4:24 PM Number of Addenda: 0 ? [facility] ? [address] [place] [address] [facility] 06/21/2022 4:24 PM CDT Abeba Will DO GI PROCEDURE ORDERAB LES [facility] * CARDIAC EKG ORDER (06/21/2022 3:29 PM CDT) Only the most recent of2 resultswithin the time period is included. Narrative 06/21/2022 3:29 PM CDT Ordered by an unspecified provider. Scanned Document CARDIAC SERVICES ORD ERABLES * (ABNORMAL) CBC W AUTO DIFFERENTIAL (06/21/2022 2:03 AM CDT) Only the most recent of3 resultswithin the time period is included. WBC 8.0 3.5 - 10.5 10? 3 /uL 06/21/2022 2:59 AM [facility] RBC 2.77(L) 3.80 - 5.20 10? 6 /uL 06/21/2022 2:59 AM [facility] Hemoglobin 8.3(L) 12.0 - 15.6 g/dL 06/21/2022 2:59 AM [facility] Hematocrit 25.9(L) 35.0 - 45.0 % 06/21/2022 2:59 AM [facility] MCV 93.5 80.7 - 98.3 fL 06/21/2022 2:59 AM [facility] MCH 30.0 26.7 - 34.0 pg 06/21/2022 2:59 AM [facility] MCHC 32.0 30.8 - 35.9 g/dL 06/21/2022 2:59 AM [facility] RDW-SD 46.8 36.0 - 50.0 fL 06/21/2022 2:59 AM [facility] RDW-CV 13.8 11.2 - 14.8 % 06/21/2022 2:59 AM [facility] Platelet Count 415(H) 150 - 400 10? 3 /uL 06/21/2022 2:59 AM [facility] MPV 9.6 9.4 - 12.9 fL 06/21/2022 2:59 AM [facility] nRBC Absolute 0.00 0 10? 3 /uL 06/21/2022 2:59 AM [facility] nRBC Auto 0.0 0 /100 WBC 06/21/2022 2:59 AM [facility] Neutrophils % 68.7 35.0 - 70.0 % 06/21/2022 2:59 AM [facility] Lymphocytes % 17.2(L) 20.0 - 43.0 % 06/21/2022 2:59 AM [facility] Monocytes % 10.7 5.0 - 13.0 % 06/21/2022 2:59 AM [facility] Eosinophils % 2.3 0.0 - 6.0 % 06/21/2022 2:59 AM [facility] Basophil % 0.6 0.0 - 2.0 % 06/21/2022 2:59 AM [facility] Neutrophils Absolute 5.47 1.60 - 7.00 10? 3 /uL 06/21/2022 2:59 AM [facility] Lymphocyte Absolute 1.37 1.10 - 3.90 10? 3 /uL 06/21/2022 2:59 AM [facility] Monocytes Absolute 0.85 0.26 - 1.07 10? 3 /uL 06/21/2022 2:59 AM [facility] Eosinophils Absolute 0.18 0.00 - 0.47 10? 3 /uL 06/21/2022 2:59 AM [facility] Basophils Absolute 0.05 0.00 - 0.08 10? 3 /uL 06/21/2022 2:59 AM [facility] Immature Granulocytes % 0.5 0.0 - 1.0 % 06/21/2022 2:59 AM [facility] Immature Granulocytes Absolute 0.04 06/21/2022 2:59 AM [facility] Blood BLOOD SPECIMEN / Unknown Lab Venipuncture / Unknown 06/21/2022 2:03 AM CDT 06/21/2022 2:39 AM T Deepa Georges MD LAB - HEMATOLOGY ORD ERABLES [facility] [address] [place] [address], [facility] [phone] * (ABNORMAL) COMPREHENSIVE METABOLIC PANEL (06/21/2022 2:03 AM [facility]) Only the most recent of3 resultswithin the time period is included. BUN 14 7 - 26 mg/dL 06/21/2022 3:05 AM [facility] Creatinine 1.11(H) 0.56 - 0.96 mg/dL 06/21/2022 3:05 AM [facility] Sodium 134(L) 136 - 145 mmol/L 06/21/2022 3:05 AM [facility] Potassium 4.2 3.5 - 4.5 mmol/L 06/21/2022 3:05 AM [facility] Chloride 96(L) 98 - 107 mmol/L 06/21/2022 3:05 AM [facility] CO2 25 22 - 29 mmol/L 06/21/2022 3:05 AM [facility] Glucose 54(L) 70 - 115 mg/dL 06/21/2022 3:05 AM [facility] Calcium 9.5 8.4 - 10.2 mg/dL 06/21/2022 3:05 AM [facility] Protein Total 6.0 6.0 - 8.3 g/dL 06/21/2022 3:05 AM [facility] Albumin 3.3(L) 3.4 - 5.0 g/dL 06/21/2022 3:05 AM [facility] Bilirubin Total 0.7 0.2 - 1.2 mg/dL 06/21/2022 3:05 AM [facility] Alkaline Phosphatase 62 40 - 150 U/L 06/21/2022 3:05 AM [facility] ALT 10 5 - 55 U/L 06/21/2022 3:05 AM [facility] AST 15 5 - 34 U/L 06/21/2022 3:05 AM [facility] Anion Gap 17 8 - 18 06/21/2022 3:05 AM [facility] BUN/Creatinine Ratio 13 7 - 23 06/21/2022 3:05 AM [facility] Osmolality Calculated 276 270 - 300 mOsm/kg 06/21/2022 3:05 AM [facility] Albumin/Globulin Ratio 1.2 1.1 - 2.3 06/21/2022 3:05 AM [facility] eGFR by CKD-EPI 53(L) >=90 mL/min/1.7 3 m2 06/21/2022 3:05 AM [facility] Blood BLOOD SPECIMEN / Unknown Lab Venipuncture / Unknown 06/21/2022 2:03 AM CDT 06/21/2022 2:39 AM CDT Deepa Georges MD LAB - CHEMISTRY [place] [facility] Organization Address City/State/ZIP Co de Phone Number [facility] [address] [place] [address], [facility] [phone] * (ABNORMAL) URINALYSIS REFLEX TO MICROSCOPIC NO CULTURE (06/21/2022 12:50 AM T) Only the most recent of2 resultswithin the time period is included. Color UA Yellow Straw, Yellow 06/21/2022 1:04 AM [facility] Clarity UA Clear Clear 06/21/2022 1:04 AM [facility] Specific [place] UA 1.048(H) 1.005 - 1.030 06/21/2022 1:04 AM [facility] pH UA 7.0 5.0 - 8.0 pH 06/21/2022 1:04 AM [facility] Protein UA Negative Negative 06/21/2022 1:04 AM [facility] Glucose UA Negative Negative 06/21/2022 1:04 AM [facility] Ketone UA 1+(A) Negative 06/21/2022 1:04 AM [facility] Bilirubin UA Negative Negative 06/21/2022 1:04 AM [facility] Blood UA Negative Negative 06/21/2022 1:04 AM [facility] Nitrite UA Negative Negative 06/21/2022 1:04 AM [facility] Leukocyte Esterase Trace(A) Negative 06/21/2022 1:04 AM [facility] Urobilinogen UA Negative Negative mg/dL 06/21/2022 1:04 AM CDT [facility] RBC UA 0-2 None Seen, 0-2, 3-5 /HPF 06/21/2022 1:04 AM CDT [facility] WBC UA 0-5 None Seen, 0-5 /HPF 06/21/2022 1:04 AM CDT [facility] Squamous Epithelial Cells UA 0-2 None Seen, 0-2, 3-5 /HPF 06/21/2022 1:04 AM CDT [facility] Urine URINE SPECIMEN OBTAINED BY CLEAN CATCH PROCEDURE / Unknown Collection / Unknown 06/21/2022 12:50 AM CDT 06/21/2022 12:57 AM CDT Narrative [facility] - 06/21/2022 1:04 AM CDT Jacki Balbuena PA-C LAB - URINALYSIS OR DERABLES [address] [address], [place] [phone] * (ABNORMAL) HEMOGLOBIN (06/20/2022 10:18 PM CDT) Hemoglobin 8.5(L) 12.0 - 15.6 g/dL 06/20/2022 10:42 PM CDT [facility] Blood BLOOD SPECIMEN / Unknown Lab Venipuncture / Unknown 06/20/2022 10:18 PM CDT 06/20/2022 10:39 PM CDT Deepa Georges MD LAB - HEMATOLOGY ORD ERABLES [address] [address], [place] [phone] * B-TYPE NATRIURETIC PEPTIDE (06/20/2022 10:18 PM CDT) BNP 99 <100 pg/mL 06/20/2022 11:17 PM CDT [facility] Comment: A decision threshold of 100 pg/mL has been demonstrated to provide the maximal combination of sensitivity, specificity and predictive value for the diagnosis of congestive heart failure (CHF). ??Virtually all patients with no evidence of CHF have BNP values less than 100 pg/mL. A BNP value greater than 100 pg/mL is consistent with the diagnosis of CHF in the appropriate clinical setting. In a study of 693 patients (male and female) with diagnosed CHF, the following values were determined based on the NYHA functional classification system: NYHA Functional Class ?Mean Valule (pg/mL) ? % >100 pg/mL ?I ?320 ? 58.1 ?II ? 432 ? 73.0 ?III ?656 ? 79.0 ?IV ?1635 ? 98.3 ? Blood BLOOD SPECIMEN / Unknown Lab Venipuncture / Unknown 06/20/2022 10:18 PM CDT 06/20/2022 10:38 PM CDT Deepa Georges MD LAB - CHEMISTRY [place] Performing Organization Address [facility] de Phone Number [facility] [address] [place] [address], [facility] [phone] * CT ANGIO ABDOMEN PELVIS (06/20/2022 5:05 PM CDT) Anatomical Region Laterality Modality Abdomen, Pelvis Computed Tomogra phy 06/20/2022 5:10 PM CDT Impressions 06/20/2022 10:47 PM CDT Impression: 1.No arterial contrast extravasation within the gastrointestinal lumen to suggest active arterial gastrointestinal bleed. 2.Colonic diverticulosis without evidence of diverticulitis. 3.Small hiatal hernia. 4.Tree-in-bud opacities in the right greater than left dependent lung bases, concerning for infectious etiology. > Dictated by Sherlyn Hopkins DO (vice president of finance). I, Chaim Martins have personally reviewed and interpreted this examination/study. > Interpreting Provider: Chaim Martins on 06/20/2022 10:47 PM Narrative 06/20/2022 10:47 PM CDT PROCEDURE: ??CT ANGIO ABDOMEN PELVIS, DATE/TIME OF EXAM: ??06/20/2022 5:05 PM, LOCATION ??[facility] INDICATION: R10.12: Abdominal pain, left upper quadrant ADDITIONAL CLINICAL INFORMATION: Ordering Provider Reason For Exam: ??bleeding ulcer? COMPARISON: None. TECHNIQUE: CT of the abdomen and pelvis was performed prior to and following the uneventful administration of 100 mL of Isovue 370 intravenous contrast according to an angiographic protocol. Three dimensional postprocessing was performed by the technologist and sent to the workstation for review. Findings: Abdominal aorta: There is no aortic dissection, intramural hematoma, penetrating atherosclerotic ulcer, or aneurysm. The aorta is normal in course and caliber. Abdominal aortic branches: Celiac axis: Atherosclerotic but patent without significant focal stenosis. Superior mesenteric artery: Atherosclerotic but patent without significant focal stenosis. Inferior mesenteric artery: Patent without significant focal stenosis. Right renal artery: Atherosclerotic but patent without significant focal stenosis. Incidental accessory right renal artery also noted.1 Left renal artery: Atherosclerotic but patent without significant focal stenosis. Right common iliac artery: Atherosclerotic but patent without significant focal stenosis. Right external iliac artery: Atherosclerotic but patent without significant focal stenosis. Right internal iliac artery: Atherosclerotic but patent without significant focal stenosis. Left common iliac artery: Atherosclerotic but patent without significant focal stenosis. Left external iliac artery: Atherosclerotic but patent without significant focal stenosis. Left internal iliac artery: Atherosclerotic but patent without significant focal stenosis. Lower Chest: Mitral valve calcifications are present. There are tree-in-bud opacities in the right greater than left dependent lung bases, concerning for infectious etiology. Liver: Normal. Gallbladder and Bile Ducts: Normal. Spleen: A calcified granuloma is noted in the spleen, likely sequelae of prior granulomatous disease. Pancreas: Normal. Adrenals: Normal. Kidneys: Cortical thinning bilaterally. Gastrointestinal: There is a small hiatal hernia. The stomach and visualized loops of small bowel are otherwise unremarkable. Colonic diverticulosis without evidence of diverticulitis is seen. There is no arterial contrast extravasation within the gastrointestinal lumen to suggest active arterial gastrointestinal bleed. The appendix is not seen; however, no inflammatory changes are seen in the right lower quadrant. Mesentery/Peritoneum/Retroperitoneum: No free intraperitoneal air. No free fluid in the abdomen or pelvis. Bladder: Normal. Reproductive Organs: The uterus is absent. Bones: There are advanced multilevel degenerative changes in the spine. Soft tissues: Normal. Procedure Note Chaim Martins MD - 06/20/2022 PROCEDURE: CT ANGIO ABDOMEN PELVIS, DATE/TIME OF EXAM: 06/20/2022 5:05PM, LOCATION [facility] INDICATION: R10.12: Abdominal pain, left upper quadrant ADDITIONAL CLINICAL INFORMATION: Ordering Provider Reason For Exam: bleeding ulcer? COMPARISON: None. TECHNIQUE: CT of the abdomen and pelvis was performed prior to and following the uneventful administration of 100 mL of Isovue 370intravenous contrast according to an angiographic protocol. Three dimensional postprocessing was performed by the technologist and sent to the workstation for review. Findings: Abdominal aorta: There is no aortic dissection, intramural hematoma, penetrating atherosclerotic ulcer, or aneurysm. The aorta is normal in course and caliber. Abdominal aortic branches: Celiac axis: Atherosclerotic but patent without significant focalstenosis. Superior mesenteric artery: Atherosclerotic but patent withoutsignificant focal stenosis. Inferior mesenteric artery: Patent without significant focal stenosis. Right renal artery: Atherosclerotic but patent without significant focal stenosis. Incidental accessory right renal artery also noted.1 Left renal artery: Atherosclerotic but patent without significant focal stenosis. Right common iliac artery: Atherosclerotic but patent withoutsignificant focal stenosis. Right external iliac artery: Atherosclerotic but patent withoutsignificant focal stenosis. Right internal iliac artery: Atherosclerotic but patent withoutsignificant focal stenosis. Left common iliac artery: Atherosclerotic but patent without significant focal stenosis. Left external iliac artery: Atherosclerotic but patent withoutsignificant focal stenosis. Left internal iliac artery: Atherosclerotic but patent withoutsignificant focal stenosis. Lower Chest: Mitral valve calcifications are present. There are tree-in-bud opacitiesin the right greater than left dependent lung bases, concerning forinfectious etiology. Liver: Normal. Gallbladder and Bile Ducts: Normal. Spleen: A calcified granuloma is noted in the spleen, likely sequelae of prior granulomatous disease. Pancreas: Normal. Adrenals: Normal. Kidneys: Cortical thinning bilaterally. Gastrointestinal: There is a small hiatal hernia. The stomach and visualized loops ofsmall bowel are otherwise unremarkable. Colonic diverticulosis withoutevidence of diverticulitis is seen. There is no arterial contrast extravasation within the gastrointestinal lumen to suggest active arterial gastrointestinal bleed. The appendix is not seen; however, noinflammatory changes are seen in the right lower quadrant. Mesentery/Peritoneum/Retroperitoneum: No free intraperitoneal air. No free fluid in the abdomen or pelvis. Bladder: Normal. Reproductive Organs: The uterus is absent. Bones: There are advanced multilevel degenerative changes in the spine. Soft tissues: Normal. Impression: 1.No arterial contrast extravasation within the gastrointestinal lumento suggest active arterial gastrointestinal bleed. 2.Colonic diverticulosis without evidence of diverticulitis. 3.Small hiatal hernia. 4.Tree-in-bud opacities in the right greater than left dependent lung bases, concerning for infectious etiology. > Dictated by Sherlyn Hopkins DO (vice president of finance). I, Chaim Martins have personally reviewed and interpreted this examination/study. > Interpreting Provider: Chaim Martins on 06/20/2022 10:47 PM Adolph Mckinney MD CT ORDERABLES * XR CHEST 2VW (06/20/2022 3:02 PM CDT) Anatomical Region Laterality Modality Chest Radiographic Vivian ging 06/20/2022 3:13 PM CDT Narrative 06/20/2022 3:49 PM CDT PROCEDURE: ??XR CHEST 2VW, DATE/TIME OF EXAM: ??06/20/2022 3:03 PM, LOCATION [facility] INDICATION: R06.02: Shortness of breath ADDITIONAL CLINICAL INFORMATION: Ordering Provider Reason For Exam: ??pt with dyspnea and chills, recent surger - any focal consolidation? COMPARISON: Chest x-ray 02/14/2022 FINDINGS/IMPRESSION: Cervical collar in place. Partial visualization of cervical/thoracic spine hardware. There is no focal consolidation, pleural effusion, or pneumothorax. The cardiomediastinal silhouette is normal. Degenerative changes are noted in the thoracic spine and shoulders with superior migration of the bilateral humeral heads. Report dictated by Yasir Pierre MD (vice president of finance). Haroldo Narvaez MD have personally reviewed and interpreted this examination/study. > Interpreting Provider: Haroldo Ball MD on 06/20/2022 3:49 PM Procedure Note Haroldo Ball MD - 06/20/2022 PROCEDURE: XR CHEST 2VW, DATE/TIME OF EXAM: 06/20/2022 3:03 PM, LOCATION [facility] INDICATION: R06.02: Shortness of breath ADDITIONAL CLINICAL INFORMATION: Ordering Provider Reason For Exam: pt with dyspnea and chills, recent surger - any focal consolidation? COMPARISON: Chest x-ray 02/14/2022 FINDINGS/IMPRESSION: Cervical collar in place. Partial visualization of cervical/thoracicspine hardware. There is no focal consolidation, pleural effusion, or pneumothorax. The cardiomediastinal silhouette is normal. Degenerative changes are notedin the thoracic spine and shoulders with superior migration of thebilateral humeral heads. Report dictated by Yasir Pierre MD (vice president of finance). Haroldo Narvaez MD have personally reviewed and interpreted this examination/study. > Interpreting Provider: Haroldo Ball MD on 06/20/2022 3:49 PM Adolph Mckinney MD DIAGNOSTIC IMAGING ORDERABLES * PT-INR [facility] (06/20/2022 2:05 PM CDT) PT 13.4 12.1 - 14.8 Seconds 06/20/2022 2:48 PM CDT [facility] INR 1.0 See Comment 06/20/2022 2:48 PM CDT [facility] Comment:The suggested therap eutic range for standard coumadin (warfarin) therapy is an INR of 2.0-3.0. For high-risk patients (Mechanical Mitral Valve Prosthesis, etc.), the suggested prophylactic therapeutic range is an INR of 2.5-3.5. Blood BLOOD SPECIMEN / Unknown Venipuncture / Unknown 06/20/2022 2:05 PM CDT 06/20/2022 2:07 PM CDT Adolph Mckinney MD LAB - COAGULATION ORDERABLES Performing Organization Address [facility]/ZIP Co de Phone Number [address] [address], [facility] [phone] * TYPE + SCREEN PANEL (06/20/2022 2:05 PM CDT) Only the most recent of3 resultswithin the time period is included. Antibody Screen NEG 2:53 PM CDT [facility] ABO Rh A POS 06/20/2022 2:53 PM CDT [facility] Blood Bank BLOOD SPECIMEN / Unknown Venipuncture / Unknown 06/20/2022 2:05 PM CDT 06/20/2022 2:08 PM CDT Adolph Mckinney MD LAB - BLOOD BANK O RDERABLES Performing Organization Address [facility] Co de Phone Number [facility] [address] [place] [address], [facility] [phone] * LIPASE BLOOD (06/20/2022 2:05 PM CDT) Lipase 18 8 - 78 U/L 06/20/2022 2:50 PM CDT [facility] Blood BLOOD SPECIMEN / Unknown Venipuncture / Unknown 06/20/2022 2:05 PM CDT 06/20/2022 2:23 PM CDT Narrative [facility] - 06/20/2022 2:50 PM CDT Lipase results from the Roobiq Alinity analyzer may not be comparable with other methodologies. Adolph Mckinney MD LAB - CHEMISTRY OR DERABLES [address] [address], [place] [phone] * LACTIC ACID BLOOD (06/20/2022 2:05 PM CDT) [facility] Lactic Acid-Stat 1.1 <=2.0 mmol/L 06/20/2022 2:48 PM CDT [facility] Blood BLOOD SPECIMEN / Unknown Venipuncture / Unknown 06/20/2022 2:05 PM CDT 06/20/2022 2:23 PM CDT Adolph Mckinney MD LAB - CHEMISTRY OR DERABLES Performing Organization Address [facility]/ZIP Co de Phone Number [address] [address], [place] [phone] * TROPONIN-I HIGH SENSITIVE REFLEX 1HOUR (06/20/2022 1:05 PM CDT) [facility] Troponin I High Sensitive 8 <=14 ng/L 06/20/2022 1:59 PM CDT [facility] Delta Troponin I HS 06/20/2022 1:59 PM CDT [facility] Comment:Delta value intentio anil not calculated. Baseline to 1 hour specimen collection interval exceeded. Blood BLOOD SPECIMEN / Unknown Venipuncture / Unknown 06/20/2022 1:05 PM CDT 06/20/2022 1:23 PM CDT Jacki Balbuena PA-C LAB - CHEMISTRY ORD ERABLES [address] [address], [place] [phone] * TROPONIN-I HIGH SENSITIVE BASELINE + 1HR (06/20/2022 9:49 AM CDT) [facility] Troponin I High Sensitive 7 <=14 ng/L 06/20/2022 10:39 AM CDT [facility] Blood BLOOD SPECIMEN / Unknown Venipuncture / Unknown 06/20/2022 9:49 AM CDT 06/20/2022 9:55 AM CDT Jacki Balbuena PA-C LAB - CHEMISTRY ORD ERABLES Performing Organization Address City/[facility]/ZIP Co de Phone Number [facility] [address] [place] [address], [facility] [phone] * EKG 12-LEAD (06/20/2022 9:40 AM CDT) Only the most recent of2 resultswithin the time period is included. Ventricular Rate 88 BPM SL MUSE Atrial Rate 88 BPM [facility] MUSE P-R Interval 176 ms [facility] MUSE QRS Duration ms 70 ms [facility] MUSE Q-T Interval ms 348 ms [facility] MUSE QTC Calculation (Bezet) 421 ms [facility] MUSE Calculated P [place] 75 degrees SL MUSE Calculated R [place] 55 degrees [facility] MUSE Calculated T [place] 74 degrees [facility] MUSE Interpretation EKG NORMAL SINUS RHYTHM NORMAL ECG WHEN COMPARED WITH ECG OF 15-FEB-2022 00:55, VENT. RATE HAS INCREASED by 15 bpm Confirmed by BRIEN KEARNS MD ([id number]) on 06/20/2022 1:46:36 PM [facility] MUSE 06/20/2022 9:40 AM CDT 06/20/2022 1:46 PM CDT Jacki Balbeuna PA-C ECG ORDERABLES Performing Organization Address [facility] Co de Phone Number [facility] MUSE * (ABNORMAL) PHOSPHORUS BLOOD (06/08/2022 2:13 AM SEO CONSULTANT) Only the most recent of3 resultswithin the time period is included. Phosphorus 2.5(L) 2.9 - 5.1 mg/dL 06/08/2022 3:12 AM SEO CONSULTANT [facility] Blood BLOOD SPECIMEN / Unknown Lab Venipuncture / Unknown 06/08/2022 2:13 AM SEO CONSULTANT 06/08/2022 2:44 AM SEO CONSULTANT Ama Gonzalez MD LAB - CHEMISTRY ORDERABLES [facility] [address] [place] [address], [place] [phone] * TRANSFUSE RED BLOOD CELL LEUKOREDUCED UNIT(S) (06/06/2022 12:20 PM SEO CONSULTANT) Aam Gonzalez MD NURSING - BLOOD PROD TRANSFUSION * PREPARE (CROSSMATCH) RBC UNIT(S), 1 Units (06/06/2022 9:36 AM SEO CONSULTANT) Unit Description AS1 LR PRBC [facility] Unit ABO A [facility] Unit Rh POS [facility] Product Number R02 [facility] B[facility] Unit Donor # [id number] [facility] Unit Status transfused [facility] Product Code [id number] [facility] Blood Type Barcode 6200 [facility] Expiration Date [id number] S BLOOD BANK LAB Blood Bank BLOOD SPECIMEN / Unknown 06/04/2022 6:44 AM SEO CONSULTANT Ama Gonzalez MD LAB - BLOOD BANK ORDERABLES Performing Organization Address City/[facility]/ZIP Co de Phone Number [facility] [address] [place] [address], [facility] [phone] * PTH INTACT W/O CALCIUM (06/06/2022 3:07 AM SEO CONSULTANT) Pathologist [facility] PTH Intact 72.1 8.0 - 77.0 pg/mL 06/06/2022 4:04 AM SEO CONSULTANT [facility] Blood BLOOD SPECIMEN / Unknown Lab Venipuncture / Unknown 06/06/2022 3:07 AM SEO CONSULTANT 06/06/2022 3:32 AM SEO CONSULTANT Deon Taylor MD LAB - CHEMISTRY CELESTEE SORAIDA [facility] [address] [place] [address], [place] [phone] * HEMOGLOBIN A1C (06/06/2022 3:07 AM SEO CONSULTANT) Only the most recent of2 resultswithin the time period is included. Hemoglobin A1c 5.3 <=5.6 % 06/06/2022 3:38 PM [facility] Estimated Average Glucose 105 mg/dL 06/06/2022 3:38 PM [facility] Comment: HbA1c Interpretation: Normal : < 5.7% Pre-diabetes: 5.7-6.4% Diabetes: Equal to or greater than 6.5% Test results diagnostic of diabetes should be repeated for confirmation. Treatment target values recommended by ADA and other clinical organizations should be used to evaluate metabolic control in patients. Reference: [place] [employer], Standards of Care in Diabetes -2020 In patients 70 years and older consider HbA1c target range of 7.0-7.5% (Reference: Oswaldo Liz et al. JAMDA. 2012) The Sebia assay for the measurement of HbA1c is a National Glycohemoglobin Standardization Program (NGSP) certified method. Blood BLOOD SPECIMEN / Unknown Lab Venipuncture / Unknown 06/06/2022 3:07 AM SEO CONSULTANT 06/06/2022 3:28 AM [facility] Ama Gonzalez MD LAB - CHEMISTRY ORDERABLES Performing Organization Address [facility] de Phone Number [facility] [address] [place] [address], [facility] [phone] * VITAMIN D 25-HYDROXY (06/06/2022 3:07 AM [facility]) Pathologist [facility] Vitamin D, 25 Hydroxy 53.0 30.0 - 80.0 ng/mL 06/06/2022 4:35 AM [facility] Comment: The recommendations for 25-Hydroxy Vitamin D clinical decision points are as follows: ? Deficient: ? <20.0 ng/mL ? Insufficient: ? 20.0 - 29.9 ng/mL ? Sufficient: ? 30.0 - 100.0 ng/mL ? Potential Toxicity: ??>100 ng/mL Reference: The Endocrine Society Clinical Practice Guidelines. 2011 If the 25-Hydroxy Vitamin D results are inconsitent with clinical evidence, it is recommended that follow-up testing using a method such as LC/MS/MS be performed to confirm the result. ? Blood BLOOD SPECIMEN / Unknown Lab Venipuncture / Unknown 06/06/2022 3:07 AM SEO CONSULTANT 06/06/2022 3:29 AM SEO CONSULTANT Deon Taylor MD LAB - CHEMISTRY CHELO QUIGLEY Performing Organization Address [facility]/ZIP Co de Phone Number [facility] [address] [place] [address], [facility] [phone] * FOLATE (06/06/2022 3:07 AM SEO CONSULTANT) Folate 9.4 7.0 - 31.4 ng/mL 06/06/2022 4:35 AM SEO CONSULTANT [facility] Blood BLOOD SPECIMEN / Unknown Lab Venipuncture / Unknown 06/06/2022 3:07 AM SEO CONSULTANT 06/06/2022 3:29 AM SEO CONSULTANT Ama Gonzalez MD LAB - CHEMISTRY ORDERABLES Performing Organization Address [facility]/ZIP Co de Phone Number [facility] [address] [place] [address], [place] [phone] * VITAMIN B12 (06/06/2022 3:07 AM SEO CONSULTANT) Vitamin B12 382 213 - 816 pg/mL 06/06/2022 4:35 AM SEO CONSULTANT [facility] Blood BLOOD SPECIMEN / Unknown Lab Venipuncture / Unknown 06/06/2022 3:07 AM SEO CONSULTANT 06/06/2022 3:29 AM SEO CONSULTANT Ama Gonzalez MD LAB - CHEMISTRY ORDERABLES [address] [address], [place] [phone] * (ABNORMAL) IRON + TRANSFERRIN PANEL (06/06/2022 3:07 AM SEO CONSULTANT) Iron 20(L) 40 - 150 ug/dL 06/06/2022 3:53 AM [facility] Transferrin 162(L) 174 - 382 mg/dL 06/06/2022 3:53 AM [facility] Transferrin Saturation % 10(L) 16 - 50 % 06/06/2022 3:53 AM [facility] TIBC Calculated 203(L) 240 - 450 ug/dL 06/06/2022 3:53 AM [facility] Blood BLOOD SPECIMEN / Unknown Lab Venipuncture / Unknown 06/06/2022 3:07 AM SEO CONSULTANT 06/06/2022 3:25 AM SEO CONSULTANT Ama Gonzalez MD LAB - CHEMISTRY ORDERABLES [address] [address], [place] [phone] * FERRITIN (06/06/2022 3:07 AM SEO CONSULTANT) Ferritin 94 13 - 204 ng/mL 06/06/2022 4:10 AM SEO CONSULTANT [facility] Blood BLOOD SPECIMEN / Unknown Lab Venipuncture / Unknown 06/06/2022 3:07 AM SEO CONSULTANT 06/06/2022 3:25 AM SEO CONSULTANT Ama Gonzalez MD LAB - CHEMISTRY ORDERABLES [address] [address], [place] [phone] * FL JOSÉ LUIS SURGERY (06/04/2022 11:30 AM SEO CONSULTANT) Narrative [facility] - 06/04/2022 12:52 PM SEO CONSULTANT Fluoroscopy was used for this exam in the OR. Please see the Operative report. Deon Taylor MD FLUOROSCOPY ORDERABL ES [facility] * ETT LINE PERFORMABLE (06/04/2022 9:09 AM SEO CONSULTANT) Narrative Marcos Rojas Anes Asst - 06/04/2022 9:09 AM SEO CONSULTANT Marcos Rojas Anes Asst ? 06/04/2022 ??9:11 AM Endotracheal Tube Placement: ? Patient Location: OR. Intubation Event Date/Time: ??06/04/2022 7:44 AM Procedure: intubation ([id number]). Procedure Section: ?? Sedation: under general anesthesia. Indications for Airway Management: ??anesthesia Induction: standard IV Patient Position: ??sniffing Mask Ventilation: easy. Blade Type: Video (ProVue MAC 3) Blade Size: 3 Laryngoscopy View: grade 1 (full cords) Intubation Adjuncts: stylet Tube: endotracheal tube Placement: oral Tube type: cuff - inflated Tube Size (MM): 7 Depth of Insertion (CM): 21 Measured From: lips Cuff Inflated With: air Number of Attempts: 1. Placement Verified By: direct visualization, bilateral breath sounds, chest auscultation and CO2 monitor Tube secured with: ??adhesive tape. Dentition unchanged? ??Yes Difficult Airway? ??No. Procedure Start Time: 06/04/2022 7:44 AM. Staff Section ? Anesthesia Provider: Marcos Rojas Anes Asst, Performed the procedure ? Provider #1: Chilo Franklin MD. Additional Comments: Theodore CEJA performed intubation under direct supervision.. Chilo Franklin MD GENERAL ANESTHESIA O RDERABLES * ARTERIAL LINE PERFORMABLE (06/04/2022 9:08 AM SEO CONSULTANT) Narrative Marcos Rojas Anes Asst - 06/04/2022 9:08 AM SEO CONSULTANT Marcos Rojas Anes Asst ? 06/04/2022 ??9:08 AM Arterial Line Placement Procedure Note Patient Location: OR. Procedure: Arterial Line (36663). Procedure Section ?? Indications: continuous blood pressure monitoring and blood sampling needed. Skin Prep: Chloraprep. Orientation: Left. Site: radial. Site Identification: ultrasound guided with sterile sleeve and gel. Sterile Technique: cap and mask. Gauge: 20. Seldinger Technique Used? ??Yes Number of Attempts: 1. Line Secured with: Tegaderm. Procedure Tolerance: tolerated well and performed while patient under general anesthesia. Events: none. Procedure Start Time: 06/04/2022 8:00 AM. Local Anesthetic Used? ??No Staff Section ? Anesthesia Provider: Lyle Ralph, DO, Performed the procedure ? Provider #1: Marcos Rojas Anes Asst. Chilo Franklin MD GENERAL ANESTHESIA O RDERABLES * SODIUM URINE RANDOM (02/17/2022 2:08 PM SEO CONSULTANT) Sodium Urine 55 Not Established mmol/L 02/17/2022 2:30 PM SEO CONSULTANT [facility] Urine URINE SPECIMEN OBTAINED BY CLEAN CATCH PROCEDURE / Unknown Collection / Unknown 02/17/2022 2:08 PM SEO CONSULTANT 02/17/2022 2:13 PM SEO CONSULTANT Radha Flores PA-C LAB - URINE CHEM ISTRY ORDERABLES Performing Organization Address [facility]/ZIP Co de Phone Number [address] [address], [place] [phone] * OSMOLALITY URINE (02/17/2022 2:08 PM SEO CONSULTANT) Osmolality Urine 234 50 - 1,200 mOsm/kg 02/17/2022 3:23 PM SEO CONSULTANT [facility] Urine URINE SPECIMEN OBTAINED BY CLEAN CATCH PROCEDURE / Unknown Collection / Unknown 02/17/2022 2:08 PM SEO CONSULTANT 02/17/2022 2:13 PM SEO CONSULTANT Narrative [facility] - 02/17/2022 3:23 PM SEO CONSULTANT QRY Radha Flores PA-C LAB - URINE CHEM ISTRY ORDERABLES Performing Organization Address City/[facility]/ZIP Co de Phone Number [address] [address], [place] [phone] * MRI CERVICAL SPINE WO CONTRAST (02/16/2022 7:19 PM SEO CONSULTANT) Anatomical Region Laterality Modality Pelvis Magnetic Resonan ce 02/18/2022 1:46 PM SEO CONSULTANT Impressions 02/18/2022 2:03 PM SEO CONSULTANT IMPRESSION: 1. Degenerative changes of the spine as described above most prominent at the level of C5-C6 with moderate to severe canal stenosis. There is also small central disc extrusion material projecting inferiorly from the level of C7-T1 and causing mild mass effect on the cord at the level of T1. Possible T2 hyperintensity/edema or myelomalacia of the cord at this level cannot be excluded. > Interpreting Provider: Brook Billy MD on 02/18/2022 2:03 PM Narrative 02/18/2022 2:03 PM SEO CONSULTANT PROCEDURE: ??MRI CERVICAL SPINE WO CONTRAST, DATE/TIME OF EXAM: ??02/16/2022 7:20 PM, LOCATION ??[facility] INDICATION: M50.30: Degeneration of cervical intervertebral disc ADDITIONAL CLINICAL INFORMATION: Ordering Provider Reason For Exam: ??eval for spinal stenosis COMPARISON: CT cervical spine 02/15/2022 TECHNIQUE: Cervical spine MRI was performed without contrast, according to standard protocol. FINDINGS: Mild anterolisthesis of C3 over C4.. Degenerative changes at the atlantoaxial joint with the pannus formation. Small amount of prevertebral fat noted. Redemonstration of postsurgical changes with the interspaces devices at the levels of C4-C5 and C5-C6 again noted more conspicuous on prior CT. There is bony ankylosis at the level of C4-C5, C3-C4 vertebral bodies more conspicuous on prior CT. The cervical vertebral body heights are otherwise maintained within the limits of the study. Areas of fatty replacement noted involving C3 and C4 vertebral bodies. Generalized bone marrow signal is otherwise within normal limits. Possible mild T2 hyperintensity in the cord at the level of T1 cannot be excluded. (Image 30, series 6) Otherwise no cord signal abnormality within the limits of the study.The cerebellar tonsils are normal in position. The paraspinal soft tissues are unremarkable. C2-3: There is no significant disc bulge. There is no central canal stenosis. There is moderate right, mild left facet osteoarthritis. There is no uncovertebral joint osteoarthritis. There is no neural foraminal stenosis. C3-4: Posterior osteophyte projecting in the right subarticular region causing mild mass effect on the spinal cord (image 14, series 6). There is mild central canal stenosis. Osseous fusion of the facet joints. There is mild to moderate uncovertebral joint osteoarthritis. There is mild to moderate bilateral neural foraminal stenosis. C4-5: Postsurgical changes from discectomy and interbody fusion device placement. There is a decidual osteophyte causing minimal mass effect on the spinal cord (image 17, series 6).. There is mild central canal stenosis. There is mild to moderate bilateral facet osteoarthritis. There is mild bilateral uncovertebral joint osteoarthritis. There is mild bilateral neural foraminal stenosis. C5-6: Anterior disc fusion device. Posterior broad-based residual disc osteophyte complex. There is moderate to severe central canal stenosis. There is moderate right, severe left facet osteoarthritis. There is severe bilateral uncovertebral joint osteoarthritis. There is moderate to severe bilateral neural foraminal stenosis. C6-7: Posterior disc osteophyte complex. There is mild central canal stenosis with minimal mass effect on the left lateral aspect of the cord. There is mild bilateral facet osteoarthritis. There is mild bilateral uncovertebral joint osteoarthritis. There is no neural foraminal stenosis. C7-T1: Moderate to severe narrowing of the disc space with the inferiorly migrating disc material causing mild mass effect on the spinal cord (image 30, series 6). There is mild central canal stenosis. There is is mild to moderate bilateral facet osteoarthritis. There is mild bilateral uncovertebral joint osteoarthritis. There is mild bilateral neural foraminal stenosis. Procedure Note Broko Billy MD - 02/18/2022 PROCEDURE: MRI CERVICAL SPINE WO CONTRAST, DATE/TIME OF EXAM:02/16/2022 7:20 PM, LOCATION [facility] INDICATION: M50.30: Degeneration of cervical intervertebral disc ADDITIONAL CLINICAL INFORMATION: Ordering Provider Reason For Exam: eval for spinal stenosis COMPARISON: CT cervical spine 02/15/2022 TECHNIQUE: Cervical spine MRI was performed without contrast, according to standard protocol. FINDINGS: Mild anterolisthesis of C3 over C4.. Degenerative changes at the atlantoaxial joint with the pannus formation. Small amount ofprevertebral fat noted. Redemonstration of postsurgical changes with the interspaces devices at the levels of C4-C5 and C5-C6 again noted more conspicuous on prior CT. There is bony ankylosis at the level of C4-C5, C3-C4 vertebral bodies more conspicuous on prior CT. The cervical vertebral body heights are otherwise maintained within the limits of the study. Areas of fatty replacement noted involving C3 and C4 vertebral bodies. Generalized bone marrow signal is otherwise within normal limits.Possible mild T2 hyperintensity in the cord at the level of T1 cannot beexcluded. (Image 30, series 6) Otherwise no cord signal abnormality within thelimits of the study.The cerebellar tonsils are normal in position. Theparaspinal soft tissues are unremarkable. C2-3: There is no significant disc bulge. There is no central canal stenosis. There is moderate right, mild left facet osteoarthritis. Thereis no uncovertebral joint osteoarthritis. There is no neural foraminal stenosis. C3-4: Posterior osteophyte projecting in the right subarticular region causing mild mass effect on the spinal cord (image 14, series 6). Thereis mild central canal stenosis. Osseous fusion of the facet joints. Thereis mild to moderate uncovertebral joint osteoarthritis. There is mild to moderate bilateral neural foraminal stenosis. C4-5: Postsurgical changes from discectomy and interbody fusion device placement. There is a decidual osteophyte causing minimal mass effect on the spinal cord (image 17, series 6).. There is mild central canal stenosis. There is mild to moderate bilateral facet osteoarthritis.There is mild bilateral uncovertebral joint osteoarthritis. There is mild bilateral neural foraminal stenosis. C5-6: Anterior disc fusion device. Posterior broad-based residual disc osteophyte complex. There is moderate to severe central canal stenosis. There is moderate right, severe left facet osteoarthritis. There issevere bilateral uncovertebral joint osteoarthritis. There is moderate tosevere bilateral neural foraminal stenosis. C6-7: Posterior disc osteophyte complex. There is mild central canal stenosis with minimal mass effect on the left lateral aspect of thecord. There is mild bilateral facet osteoarthritis. There is mild bilateral uncovertebral joint osteoarthritis. There is no neural foraminalstenosis. C7-T1: Moderate to severe narrowing of the disc space with theinferiorly migrating disc material causing mild mass effect on the spinal cord(image 30, series 6). There is mild central canal stenosis. There is is mild to moderate bilateral facet osteoarthritis. There is mild bilateral uncovertebral joint osteoarthritis. There is mild bilateral neural foraminal stenosis. IMPRESSION: 1. Degenerative changes of the spine as described above most prominentat the level of C5-C6 with moderate to severe canal stenosis. There is also small central disc extrusion material projecting inferiorly from thelevel of C7-T1 and causing mild mass effect on the cord at the level of T1. Possible T2 hyperintensity/edema or myelomalacia of the cord at thislevel cannot be excluded. > Interpreting Provider: Brook Billy MD on 02/18/2022 2:03 PM Radha Flores PA-C MR ORDERABLES * TSH REFLEX FREE T4 (02/16/2022 7:57 AM SEO CONSULTANT) Only the most recent of2 resultswithin the time period is included. TSH 1.522 0.350 - 4.940 uIU/mL 02/16/2022 9:01 AM SEO CONSULTANT [facility] Blood BLOOD SPECIMEN / Unknown Lab Venipuncture / Unknown 02/16/2022 7:57 AM SEO CONSULTANT 02/16/2022 8:15 AM SEO CONSULTANT Dagoberto Ordoñez MD LAB - CHEMISTRY ORDERABLES [facility] [address] [address], [facility] [phone] * CT CERVICAL SPINE WO CONTRAST (02/15/2022 10:41 PM SEO CONSULTANT) Anatomical Region Laterality Modality Spine Computed Tomogra phy 02/16/2022 2:09 AM SEO CONSULTANT Impressions 02/16/2022 2:29 AM SEO CONSULTANT IMPRESSION: 1.No acute fracture or traumatic malalignment of the cervical spine. 2.Severe multilevel degenerative changes of the cervical spine as described above, which results in moderate spinal canal stenosis at the C5-C6 level and mild spinal canal stenosis at the C3-C4, C6-C7, and C7-T1 levels. 3.Severe bilateral neuroforaminal narrowing at the C5-C6 level. > Interpreting Provider: Barbara Wallace DR on 02/16/2022 2:29 AM Narrative 02/16/2022 2:29 AM SEO CONSULTANT PROCEDURE: ??CT CERVICAL SPINE WO CONTRAST, DATE/TIME OF EXAM: ??02/15/2022 10:41 PM, LOCATION ??[facility] INDICATION: S02.92XA: Multiple closed fractures of facial bone, initial encounter ([facility]) ADDITIONAL CLINICAL INFORMATION: Ordering Provider Reason For Exam: ??Evaluate C-spine stenosis. COMPARISON: None. EXAMINATION: CT scan of the cervical spine without intravenous contrast TECHNIQUE: CT of the cervical spine was performed without intravenous contrast according to standard protocol. CT dose reduction technique was used, including Automated Exposure Control. COMPARISON: No prior similar studies are available for comparison. FINDINGS: ALIGNMENT: Grade 1 anterolisthesis of C3 on C4. No evidence of traumatic malalignment. ATLANTOAXIAL JOINT: The dens is intact, the lateral masses of C1 are normally aligned, and the atlantodental interval is normal. Marked degenerative changes of the atlantoaxial joint with a retro-odontoid soft tissue prominence measuring 6 mm. BONES: No evidence of an acute fracture. Evidence of prior intervertebral disc spacer placement at the C4-C5 and C5-C6 levels. Ankylosis of the C3-C5 vertebral bodies, left C3-C5 facets, right C3-C4 facets, and C3-C4 spinous processes. DISCS: Osseous fusion of the C3-C5 vertebral bodies with obliteration of the disc spaces. Severe intervertebral disc space narrowing at the C5-C6 level with notable extensive sclerotic and cystic change. Severe intervertebral space narrowing at the C6-C7 and C7-T1 levels. DEGENERATIVE CHANGES: Overall severe multilevel degenerative changes, characterized by varying degrees of posterior disc osteophyte complexes, facet arthropathy, and uncovertebral hypertrophy. ?? SPINAL CANAL: Moderate spinal canal stenosis at the C5-C6 level and mild spinal canal stenosis at the C3-C4, C6-C7, and C7-T1 levels, secondary to prominent posterior disc osteophyte complexes. NEUROFORAMEN: Severe bilateral foraminal narrowing at the C5-C6 level, secondary to uncovertebral hypertrophy. No significant osseous neuroforaminal narrowing elsewhere. SOFT TISSUES: No abnormal prevertebral soft tissue swelling. No significant soft tissue abnormality. OTHER: None. Procedure Note Barbara Wallace MD - 02/16/2022 PROCEDURE: CT CERVICAL SPINE WO CONTRAST, DATE/TIME OF EXAM:02/15/2022 10:41 PM, LOCATION [facility] INDICATION: [id number]: Multiple closed fractures of facial bone, initial encounter ([facility]) ADDITIONAL CLINICAL INFORMATION: Ordering Provider Reason For Exam: Evaluate C-spine stenosis. COMPARISON: None. EXAMINATION: CT scan of the cervical spine without intravenous contrast TECHNIQUE: CT of the cervical spine was performed without intravenous contrast according to standard protocol. CT dose reduction technique was used, including Automated Exposure Control. COMPARISON: No prior similar studies are available for comparison. FINDINGS: ALIGNMENT: Grade 1 anterolisthesis of C3 on C4. No evidence of traumatic malalignment. ATLANTOAXIAL JOINT: The dens is intact, the lateral masses of C1 are normally aligned, and the atlantodental interval is normal. Marked degenerative changes of the atlantoaxial joint with a retro-odontoidsoft tissue prominence measuring 6 mm. BONES: No evidence of an acute fracture. Evidence of priorintervertebral disc spacer placement at the C4-C5 and C5-C6 levels. Ankylosis of theC3-C5 vertebral bodies, left C3-C5 facets, right C3-C4 facets, and C3-O6hlptfgu processes. DISCS: Osseous fusion of the C3-C5 vertebral bodies with obliteration of the disc spaces. Severe intervertebral disc space narrowing at the C5-C6 level with notable extensive sclerotic and cystic change. Severe intervertebral space narrowing at the C6-C7 and C7-T1 levels. DEGENERATIVE CHANGES: Overall severe multilevel degenerative changes, characterized by varying degrees of posterior disc osteophyte complexes, facet arthropathy, and uncovertebral hypertrophy. SPINAL CANAL: Moderate spinal canal stenosis at the C5-C6 level and mild spinal canal stenosis at the C3-C4, C6-C7, and C7-T1 levels, secondaryto prominent posterior disc osteophyte complexes. NEUROFORAMEN: Severe bilateral foraminal narrowing at the C5-C6 level, secondary to uncovertebral hypertrophy. No significant osseous neuroforaminal narrowing elsewhere. SOFT TISSUES: No abnormal prevertebral soft tissue swelling. Nosignificant soft tissue abnormality. OTHER: None. IMPRESSION: 1.No acute fracture or traumatic malalignment of the cervical spine. 2.Severe multilevel degenerative changes of the cervical spine asdescribed above, which results in moderate spinal canal stenosis at the C5-A1qhujm and mild spinal canal stenosis at the C3-C4, C6-C7, and C7-T1 levels. 3.Severe bilateral neuroforaminal narrowing at the C5-C6 level. > Interpreting Provider: Barbara Wallace DR on 02/16/2022 2:29 AM Radha Flores PA-C CT ORDERABLES * SARS-COV-2 (COVID-19)+INFLU A+B PCR RAPID (02/15/2022 3:07 PM SEO CONSULTANT) COVID-19 PCR Not detected Not detected 02/16/20 3:59 PM SEO CONSULTANT [facility] Influenza A Rapid WENDI Not Detected Not Detected 02/15/2022 3:59 PM SEO CONSULTANT [facility] Influenza B WENDI Rapid Not Detected Not Detected 02/15/2022 3:59 PM SEO CONSULTANT [facility] Microbiology SPECIMEN FROM NASOPHARYNGEAL STRUCTURE / Unknown Collection / Unknown 02/15/2022 3:07 PM SEO CONSULTANT 02/15/2022 3:10 PM SEO CONSULTANT Narrative [facility] - 02/15/2022 3:59 PM SEO CONSULTANT Influenza assay performed by Nucleic Acid Amplification. Results do not exclude the possibility of a mixed viral infection. NOTE: ??Detecting and identifying specific viral nucleic acids from individuals exhibiting signs and symptoms of respiratory infection aids in the diagnosis of respiratory infection, if used in conjunction with other clinical and laboratory findings. The results of this test should not be used as the sole basis for diagnosis, treatment, or patient management decisions. This nucleic acid amplification assay performance was validated by [facility]. This test has been authorized by the Food and Drug administration (FDA)under an Emergency??Use Authorization (EUA). This test has been validated in accordance with the FDA's guidance document Policy for Diagnostic Testing in Laboratories Certified to perform High Complexity Testing under CLIA prior to Emergency Use Authorization for Coronavirus Disease-2019 during the Public Health Emergency issued on May 30, 2019. FDA independent review of this validation is pending. This test is only authorized for the duration of time the declaration that circumstances exist justifying the authorization of emergency use of in vitro diagnostic tests for detection of SARS-CoV-2 virus and/or diagnosis of COVID-19 infection under section 564(b)(1) of the Act, 21 U.S.C 360bbb-3 (b)(1), unless the authorization is terminated or revoked sooner. Fact Sheets for this EUA assay are available upon request. Brien Burk MD LAB - MICROBIOLOGY O RDERABLES [facility] [address] [place] [address], [facility] [phone] * VAS CAROTID DUPLEX BILATERAL (02/15/2022 1:56 PM SEO CONSULTANT) Anatomical Region Laterality Modality Neck Intravascular Ul trasound 02/15/2022 12:0 2 PM SEO CONSULTANT Narrative Procedure Note Adolph Pineda MD - 02/16/2022 Dagoberto Ordoñez MD VASCULAR LAB ORD ERABLES * ECHO COMPLETE (02/15/2022 11:27 AM SEO CONSULTANT) Anatomical Region Laterality Modality Chest Echo 02/15/2022 10:2 8 AM SEO CONSULTANT Narrative Procedure Note Corey Flowers MD - 02/15/2022 Dagoberto Ordoñez MD ECHOCARDIOGRAPHY RADIANT * TROPONIN I (02/14/2022 11:55 PM SEO CONSULTANT) Troponin I 0.027 <0.032 ng/mL 02/15/2022 12:31 AM SEO CONSULTANT [facility] Blood BLOOD SPECIMEN / Unknown Venipuncture / Unknown 02/14/2022 11:55 PM SEO CONSULTANT 02/14/2022 11:58 PM SEO CONSULTANT Justo Sparrow MD LAB - CHEMISTRY CHELO QUIGLEY [facility] [address] [place] [address], [facility] [phone] * XR CHEST 1VW PORTABLE (02/14/2022 11:25 PM SEO CONSULTANT) Anatomical Region Laterality Modality Chest Radiographic Vivian ging 02/14/2022 11:2 4 PM SEO CONSULTANT Narrative 02/15/2022 9:10 AM SEO CONSULTANT PROCEDURE: ??XR CHEST 1VW PORTABLE, DATE/TIME OF EXAM: ??02/14/2022 11:25 PM, LOCATION ??[facility] INDICATION: R55: Syncope and collapse ADDITIONAL CLINICAL INFORMATION: Ordering Provider Reason For Exam: ??rule out rib fracutre with recent fall COMPARISON: None. FINDINGS/IMPRESSION: The patient is rotated to the right. There is no focal consolidation, pleural effusion, or pneumothorax. The cardiomediastinal silhouette is normal. Degenerative changes noted in the shoulder joint and there is superior migration of the right humeral head in relation to the glenoid. > Dictated by Sushil Herrera MD (vice president of finance). Tony Narvaez MD have personally reviewed and interpreted this examination/study. > Interpreting Provider: Tony Hansen MD on 02/15/2022 9:10 AM Procedure Note Tony Hansen MD - 02/15/2022 PROCEDURE: XR CHEST 1VW PORTABLE, DATE/TIME OF EXAM: 02/14/2022 11:25PM, LOCATION [facility] INDICATION: R55: Syncope and collapse ADDITIONAL CLINICAL INFORMATION: Ordering Provider Reason For Exam: rule out rib fracutre with recentfall COMPARISON: None. FINDINGS/IMPRESSION: The patient is rotated to the right. There is no focal consolidation, pleural effusion, or pneumothorax. The cardiomediastinal silhouette is normal. Degenerative changes noted inthe shoulder joint and there is superior migration of the right humeral headin relation to the glenoid. > Dictated by Sushil Herrera MD (vice president of finance). Tony Narvaez MD have personally reviewed and interpreted this examination/study. > Interpreting Provider: Tony Hansen MD on 29:10 AM Justo Sparrow MD DIAGNOSTIC IMAGING O RDERABLES * MRI SPINE CERVICAL WITH AND WITHOUT CONTRAST (11/11/2009) Anatomical Region Laterality Modality Spine Other Dionisio Ryan MD MR ORDERABLES Care Teams Cd Mixer Relationship Specialty Start Date End Date Karrie Phillips MD [address] [place] [address] PCP - General 03/13/22
--- OUTSIDE RECORDS SUMMARY | 2024-04-11 03:30 | XMS_ITS | Encounter Summary ---
Author Organization [facility] Address [address] [place] [address] Care Team Providers Care Occupational Health And Safety Adviser Name Role Phone Karrie Phillips MD Primary Care Provider [phone] Reason for Visit * Reason Comments Surgical Follow-up * Consult, Test & Treat (Routine) - Closed Specialty Diagnoses / Procedures Referred By Contac t Referred To Contact Orthopedic Surgery / Orthopedics Selfreferral, Patient Deon Taylor MD [address] [place] [address] Referral ID Status Reason Start Date Expiration Date Visits Re quested Visits Authorized [id number] Closed 12/04/2022 12/04/2023 1 1 Encounter Details Date Type Department Care Team (Late st Contact Info) Description 12/04/2022 1:45 PM CDT Office Visit [facility] - Orthopedics [address] [place] [address], [place] [address] Deon Taylor MD [address] [place] [id number] S/P cervical spinal fusion (Primary Dx) [...] and heating? Not hard at all 06/04/2022 [facility] of Occupat ional Health - Occupational Stress [...] - Inhaled Oxygen Concentration - - Weight 65.3 kg (144 lb) 12/04/2022 2:47 PM CDT Height 154.9 cm (5' 1 ) 12/04/2022 2:47 PM CDT Body Mass Index 27.21 12/04/2022 2:47 PM CDT documented in this [...] this encounter Patient Instructions * Patient Instructions* Aleyda Rebollar MD - 12/04/2022 2:59 PM CDT Kandace Cole 12/04/2022 Follow up: 6 months Please contact our clinic call center at if you need to schedule or change an appointment. For medical emergencies please call 911. Please contact [address] Taylor's clinical specialist at [phone] or through [employer] if you have any further questions or concerns. [facility] office contact information: [facility] [address] [place] [address] [place] [address] [place] [address], [place] [address] December 04, 2022 To Whom It May Concern: Please use this letter to document that Kandace Cole, : 1950, was in to see Deon Taylor MD on 12/04/2022. Thank you. Sincerely, Deon Taylor MD [facility] [address] [address] [facility] documented in this encounter Progress Notes * Aleyda Rebollar MD - 12/04/2022 2:39 PM CDT [facility] Orthopedic Spine Surgery Clinic Note Kandace Cole, 72 year old, female : 1950 CSN: [id number] Primary Care Physician: Karrie Phillips MD, MD Diagnosis/Procedures 1.) Cervical myelopathy s/p C5-C6 laminectomy, C4-T2 posterior instrumented spinal fusion Date of Surgery: 06/04/22 Time Since injury/surgery: 6 months HPI Date of this clinic visit: 12/04/2022 This is a 72 year old female status post surgery above who is here for a follow- up clinic appointment. She was last seen in clinic on 09/04. Since then, she reports she has been doing great. Her preop hand numbness and tingling have completely resolved. She feels she has regained her bilateral uper extremity strength. She is able to ambulate without assistance now and has been able to use the stairs. She has occasional dizziness due to sinus infections, but she denies balance problems. Denies newnumbness/paresthesias or bowel/bladder retention or incontinence. ROS otherwise negative. 12/04/2022 2:50 PM Patient-Reported Satisfaction Current state satisfactory? Yes Prior treatment? Yes - surgery Function since surgery Improved Currently taking narcotics? No 12/04/2022 2:50 PM 09/04/2022 2:12 PM 05/08/2022 10:09 PM 03/13/2022 1:08 PM PROMIS Pain Interference PROMIS PI Score 56 (mild) 62 (moderate) 74 (severe) 67 (moderate) 12/04/2022 2:51 PM 05/08/2022 10:10 PM 03/13/2022 1:08 PM PROMIS Physical Function PROMIS PF Score 36 (moderate dysfunction) 24 (severe dysfunction) 25 (severe dysfunction) Review of Systems - Bowel/Bladder incontinence or retention: Denies - Numbness/paresthesias to extremities: Denies - Hand clumsiness/loss of fine motor skills: Denies - Balance problems: Denies Review of all other systems was negative. Objective Ht 1.549 m (5' 1 ) Wt 65.3 kg (144 lb) PMHx Past Medical History: Diagnosis Date ??? Anemia ??? Ferrell's esophagus ??? CKD (chronic kidney disease), stage III (CMS/HCC) ??? Diabetes ??? Disease of esophagus ??? Fibromyalgia ??? Glaucoma ??? HTN (hypertension) ??? Macular degeneration ??? Osteoarthritis ??? Raynaud disease ??? Sleep apnea ??? Ulnar neuropathy PSHx Past Surgical History: Procedure Laterality Date ??? Back Surgery lumbar and sacral laminectomy ??? CARPAL TUNNEL SURGERY Bilateral ??? Cervical Fusion N/A 06/04/2022 N/A; C5-C6 laminectomy, C4-T2 posterior instrumented spinal fusion ??? Cervical Laminectomy ??? ENDOSCOPY, UPPER N/A 06/21/2022 N/A; ESOPHAGOGASTRODUODENOSCOPY (EGD) DIAGNOSTIC ??? Hysterectomy ??? MINOR PROCEDURE/DIAGNOSTIC EXAM N/A 06/21/2022 N/A; CAPSULE ENDOSCOPY (GASTROINTESTINAL IMAGING) ??? NASAL POLYPECTOMY ??? Rotator Cuff Repair Bilateral ??? ULNAR NERVE TRANSPOSITION Left Social Hx Social History Tobacco Use ??? Smoking status: Never Passive exposure: Never ??? Smokeless tobacco: Never Vaping Use ??? Vaping Use: Never used Substance Use Topics ??? Alcohol use: No Family Hx family history is not on file. Allergies Allergies Allergen Reactions ??? Latex ??? Cyclobenzaprine ??? Fluoxetine ??? Naproxen ??? Sulfamethoxazole W-Trimethoprim ??? Sulfa Antibiotics Urticaria ??? Eggs ??? Other demeral ??? Urecholine [Bethanechol Chloride] Medications Current Outpatient Medications Medication ??? acetaminophen (Tylenol) 325 MG tablet ??? artificial tears ophthalmic solution ??? buPROPion SR 12hr (Wellbutrin-SR) 100 MG tablet ??? calcitriol (Rocaltrol) 0.25 MCG capsule ??? carvedilol (Coreg) 6.25 MG tablet ??? citalopram (CeleXA) 40 MG tablet ??? escitalopram (Lexapro) 20 MG tablet ??? furosemide (Lasix) 20 MG tablet ??? gabapentin (Neurontin) 300 MG capsule ??? latanoprost (Xalatan) 0.005 % ophthalmic solution ??? lisinopril (Prinivil; Zestril) 20 MG tablet ??? meclizine (Antivert) 25 MG tablet ??? ondansetron, disintegrating, (Zofran ODT) 4 MG tablet ??? pantoprazole EC (Protonix) 40 MG tablet ??? pravastatin (Pravachol) 40 MG tablet ??? QUEtiapine (SEROquel) 100 MG tablet ??? saline nasal spray (Carver; Baby Antioch) 0.65 % nasal spray ??? vitamin D3 (Cholecalciferol) 10 MCG (400 UNIT) tablet No current facility-administered medications for this visit. Physical Exam General appearance: awake, cooperative, NAD Neck: -Tenderness to palpation: none - Incision clean, dry, without signs of infection Posture - Erect posture with no cervical thrust, list, or torticollis noted Bilateral Upper Extremity: - Motor: Shoulder Abduction (C5) 5/5 Elbow Extension (C7) 5/5 Elbow Flexion (C5-palm up; C6 - thumb up) 5/5 Wrist Extension (C6) 5/5 Wrist Flexion (C7) 5/5 Finger Flexion (C8) 5/5 Finger Abduction (T1) 5/5 - Sensory: Intact to light touch distally in C5-T1 distribution Bilateral Lower Extremity: - Motor: Hip Flexion (L2/3) 5/5 Knee Flexion 5/5 Knee Extension (L4) 5/5 Ankle Dorsiflexion (L5) 5/5 Great Toe Extension (L5) 5/5 Ankle Plantarflexion (S1) 5/5 - Sensation: Intact to light touch distally in L1-S1 distribution Gait - Walks with reciprocal heel/toe gait. Imaging - XR cervical spine reviewed. Demonstrate hardware in place without loosening or break, stable compared to prior Assessment/Plan: Kandace Cole is a 72 year old female 6 months s/p C5-C6 laminectomy, C4-T2 posterior instrumentedspinal fusion, doing well after surgery - Patient was counseled to the nature of their diagnosis and demonstrated understanding - Lifting/Activity restrictions: none - Follow up in 6 months - Follow up Imaging: cervical spine Aleyda Rebollar MD 12/04/2022 Associated attestation - Deon Taylor MD - 12/04/2022 4:05 PM CDT I have seen and evaluated the patient and agree with the resident's assessment and plan as stated above. I have independently reviewed all imaging studies. Please reach out to my clinical specialist [phone] with any questions or concerns. 12/04/2022 2:50 PM Patient-Reported Satisfaction Current state satisfactory? Yes Prior treatment? Yes - surgery Function since surgery Improved Currently taking narcotics? No 12/04/2022 2:50 PM 09/04/2022 2:12 PM 05/08/2022 10:09 PM 03/13/2022 1:08 PM PROMIS Pain Interference PROMIS PI Score 56 (mild) 62 (moderate) 74 (severe) 67 (moderate) 12/04/2022 2:51 PM 05/08/2022 10:10 PM 03/13/2022 1:08 PM PROMIS Physical Function PROMIS PF Score 36 (moderate dysfunction) 24 (severe dysfunction) 25 (severe dysfunction) This note was transcribed using ubitus dictation software and may include inaccuracies in clinical ob which were unrecognized and not corrected. Deon Taylor MD documented in this encounter Plan of Treatment Upcoming Encounters Date Type Department Care Team (Late st Contact Info) Description 06/02/2024 1:45 PM C[employer] SAWYER Office Visit [facility] - Orthopedics [address] [place] [address], [place] [address] Deon Taylor MD [address] [place] [id number] documented as of this encounter Results * XR CERVICAL SPINE 2 OR 3VW (12/04/2022 2:45 PM CDT) Anatomical Region Laterality Modality Spine Radiographic Vivian ging 12/04/2022 2:53 PM CDT Impressions 12/04/2022 3:02 PM CDT IMPRESSION: Redemonstrated C4-T2 posterior instrumentation with unchanged alignment. Report dictated by Caesar Carpio MD (residential support specialist). I, Petar Spears MD have personally reviewed and interpreted this examination/study. > Interpreting Provider: Petar Spears MD on 12/04/2022 3:02 PM Narrative 12/04/2022 3:02 PM CDT PROCEDURE: ??XR CERVICAL SPINE 2 OR 3VW, DATE/TIME OF EXAM: ??12/04/2022 2:47 PM, LOCATION ??[facility] INDICATION: Z98.1: S/P cervical spinal fusion [...] 3VW, DATE/TIME OF EXAM: 32:47 PM, LOCATION [facility] INDICATION: Z98.1: S/P cervical spinal fusion [...] alignment. Report dictated by Caesar Carpio MD (residential support specialist). I, Petar Spears MD have personally reviewed and interpreted this examination/study. > Interpreting Provider: Petar Spears MD on 12/04/2022 3:02 PM Deon Taylor MD DIAGNOSTIC IMAGING O RDERABLES documented in this encounter Visit Diagnoses Diagnosis S/P cervical spinal fusion- Primary Arthrodesis status S/P cervical spinal fusion Arthrodesis status documented in this encounter Care Teams Occupational Health And Safety Adviser Relationship Specialty Start Date End Date Karrie Phillips MD [facility] [place] [address] PCP - General 03/13/22 documented as of this encounter
--- OUTSIDE RECORDS SUMMARY | 2024-04-11 03:31 | XMS_ITS | Encounter Summary ---
Author Organization [facility] Address [address] [place] [address] Care Team Providers Care Basket Turner Name Role Phone Karrie Phillips MD Primary Care Provider [phone] Encounter Details Date Type Department Care Team (Late st Contact Info) Description 06/14/2022 Orders Only [facility] - Orthopedics [address] [place] [address], [place] [address] Deon Taylor MD [address] [place] [phone] Neck pain Social History Tobacco Use Types Packs/Day Years Used Date Smoking Tobacco: Never Passive Smoke Exposure: Never Smokeless Tobacco: Never Alcohol Use Standard Drinks/Week Comments No 0 (1 standard drink = 0.6 oz pur e alcohol) AUDIT-C Answer Date Recorded Q1: How often do you have a drink containing alcohol? Never 06/04/2022 Q2: How many drinks containi ng alcohol do you have on a typical day when you are drinking? Patient does not drink Q3: How often do you have si x or more drinks on one occasion? Never 06/04/2022 Overall Financial Resource Strain (CARDIA) Answe r Date Recorded How hard is it for you to pa y for the very basics like food, housing, medical care, and heating? Not hard at all 06/04/2022 [facility] [place] of Occupat ional Health - Occupational Stress [...] place to sleep or slept in a longterm (including now)? No 06/04/2022 Sex and Gender [...] st Contact Info) Description 06/02/2024 1:45 PM CATERING SERVER Office Visit [facility] [address] [facility], [place] [address] Deon Taylor MD [address] [place] [address] documented as of this encounter Visit Diagnoses Diagnosis Neck pain- Primary Cervicalgia documented in this encounter Care Teams Basket Turner Relationship Specialty Start Date End Date Karrie Phillips MD [address] [place] [address] PCP - General 03/13/22 documented as of this encounter
--- OUTSIDE RECORDS SUMMARY | 2024-04-11 03:31 | XMS_ITS | Encounter Summary ---
Author Organization [facility] Address [address] [place] [address] Care Team Providers Care Pickle Pumper Name Role Phone Karrie Phillips MD Primary Care Provider [phone] Reason for Visit * Auth/Cert (Routine) Specialty Diagnoses / Procedures Referred By Everardo fried Referred To Contact Referral ID Status Reason Start Date Expiration Date Visits Re quested Visits Authorized [id number] 1 1 Encounter Details Date Type Department Care Team (Late st Contact Info) Description 06/21/2022 4:26 PM CDT Anesthesia Event [facility] ENDOSCOPY [address] [place] [address] Dallas Francisco MD [address] [facility] [address] [place] [address] Price Michel DO [address] [place] [address] Anesthesia Record Procedure Summary Procedure Name Responsible Anesthesiologist Anesthesia Start Time Anesthesia Stop Time ESOPHAGOGASTRODUODENOSCOPY ( EGD) DIAGNOSTIC (Esophagus) Dallas Francisco MD 06/21/22 1626 06/21/22 1658 Events Date Time Event Comment 06/21/2022 1621 1626 An Start 1626 Pt In Room 1626 An Start Data 1629 Timeout Anesthesia part icipated in timeout at the time documented in the record by nursing. 1635 Induction 1636 Anes Ready 1637 Proc Start 1638 PT Reassessment 1652 Proc Stop 1654 An Emergence 1658 an stop data 1658 Pt out of Room 1658 An Stop Meds Name Total lidocaine PF 2% 40 mg propofol 200mg/20mL injection 100 mg propofol 500 mg/50 mL injection 146.88 m g ondansetron 4mg/2mL injection 4 mg LR (Lactated ringers) 0 mL * Agents Name O2 Flow - Auxiliary * Blood No blood administrations on file. Lines, Drains, and Airways Type Details Placement Removal External Urinary Catheter 06/20/22; 2114; Well; 06/23/22; 1031 06/20/222114 by Leobardo Chisholm RN 06/23/22 103 by Tita Arvizu RN Peripheral IV Date: 06/20/22; Time: 230; Orientation: Left, Posterior; Placed By: RN; Tolerance: Well 06/20/22 2300 by Leobardo Chisholm RN 06/23/22 1514 by Tita Arvizu RN documented in this encounter Social History Tobacco Use Types Packs/Day Years [...] and heating? Not hard at all 06/04/2022 [facility] [place] of Occupat ional Health - Occupational Stress [...] as of this encounter Progress Notes * Dallas Francisco MD - 06/21/2022 5:09 PM CDT ANESTHESIA POSTOP EVALUATION NOTE Procedure: ESOPHAGOGASTRODUODENOSCOPY (EGD) DIAGNOSTIC (Esophagus) CAPSULE ENDOSCOPY (GASTROINTESTINAL IMAGING) Kandace Cole is a 72 year old female Patient Vitals for the past 6 hrs: BP Temp Pulse Resp SpO2 Pain Rating Score #1 Pain Scale/Observation Pulse - (SPO2/Cuff) 06/21/22 1549 155/71 98.3 ??F (36.8 ??C) 85 18 97 % 0 N 85 bpm 06/21/22 1600 162/70 -- 86 18 96 % -- -- 87 bpm 06/21/22 1705 160/66 97.7 ??F (36.5 ??C) 81 21 100 % 1 N 82 bpm Anesthesia Type: general Pre-op Diagnosis Codes: * Coffee ground emesis [K92.0] Mental Status: arousable Neuro Status: No numbness, tingling or visual disturbances Respiratory Function: natural Cardiac Function: stable Postop Pain: acceptable to the patient Postop Hydration: adequate Postop Nausea: none Assessment: no apparent anesthetic complications, patient tolerated procedure well and no evidence of recall Patient Disposition: Release from Anesthesia Care NOTABLE EVENTS: No notable events documented. * Dallas Francisco MD - 06/21/2022 10:32 AM CDT ANESTHESIA PREOPERATIVE EVALUATION NOTE Procedure: ESOPHAGOGASTRODUODENOSCOPY (EGD) DIAGNOSTIC (Esophagus) CAPSULE ENDOSCOPY (GASTROINTESTINAL IMAGING) Vitals: Patient Vitals for the past 6 hrs: BP Temp Pulse SpO2 06/21/22 0845 147/56 98.9 ??F (37.2 ??C) 99 -- 06/21/22 0451 148/70 98 ??F (36.7 ??C) 89 98 % LMP: No LMP recorded (lmp unknown). Patient has had a hysterectomy. OB Status: Hysterectomy ANESTHESIA PRE-EVALUATION NOTE History of Present Illness: 72 year old female scheduled for EGD for nausea, vomiting and hematemesis. Medical History Osteoarthritis Diabetes HTN (hypertension) Fibromyalgia Ulnar neuropathy Glaucoma Macular degeneration Disease of esophagus Anemia Raynaud disease Sleep apnea Ferrell's esophagus CKD (chronic kidney disease), stage III (CMS/HCC) The patient is a current non-smoker. Physical Exam: Orientation X3 Airway/Mallampati Score: II Mouth Opening Distance: 3 fingerwidths Neck ROM: full TM Distance: > 3 FB Teeth: normal Heart: normal - S1 S2 Lungs: clear to ausculation bilaterally Abdomen Exam: soft Review of Systems: History of anesthetic complications: No Sleep Apnea Risk: No Malignant Hyperthermia: No GERD: No Poor Exercise Tolerance: No Recent Chest Pain: No Shortness of Breath: No AICD/Pacemaker: No Renal Disease: Yes, other - comments (CKD not on dialysis) Diagnostic Tests: ECG(s) reviewed: Yes Echo(s) reviewed: Yes. Lab(s) reviewed: Yes. ANESTHESIA PLAN ASA Score: 3 NPO Status: Patient instructed to be NPO after midnight Anesthesia Plan: general Planned Induction: intravenous Planned Postop Destination: endo Anesthetic plan was discussed with: patient Anesthetic Plan discussion was: Consented The patient's procedural Anesthetic Plan was discussed with the CONTACT CENTER REPRESENTATIVE. BMI, Height, Weight Tobacco History Estimated body mass index is 25.51 kg/m?? as calculated from the following: Height as of this encounter: 1.549 m (5' 1 ). Weight as of this encounter: 61.2 kg (135 lb). Social History Tobacco Use Smoking Status Never ??? Passive exposure: Never Smokeless Tobacco Never Alcohol History Drug History Social History Substance and Sexual Activity Alcohol Use No Social History Substance and Sexual Activity Drug Use Never Comment: cbd gummies twice a day Outpatient Medications: Inpatient Medications: No outpatient medications have been marked as taking for the 06/20/22 encounter (Hospital Encounter). Current Facility-Administered Medications Medication Dose Last Admin ??? iopamidol 100 mL at 06/20/22 1646 ??? lactated ringers New Bag at 06/21/22 0952 ??? pantoprazole 40 mg 40 mg at 06/21/22 0836 Allergies: Allergies Allergen Reactions ??? Latex ??? Cyclobenzaprine ??? Fluoxetine ??? Naproxen ??? Sulfamethoxazole W-Trimethoprim ??? Eggs ??? Other demeral ??? Urecholine [Bethanechol Chloride] Relevant Problems No relevant active problems Problem List: Patient Active Problem List Diagnosis Date Noted ??? Shortness of breath 06/20/2022 Priority: Not Prioritized ??? Abdominal pain, left upper quadrant 06/20/2022 Priority: Not Prioritized ??? Dizziness 06/20/2022 Priority: Not Prioritized ??? Hematemesis with nausea 06/20/2022 Priority: Not Prioritized ??? Benign essential hypertension 03/13/2022 Priority: Not Prioritized ??? Hypothyroidism 03/13/2022 Priority: Not Prioritized ??? Iron deficiency anemia 03/13/2022 Priority: Not Prioritized ??? Leukocytosis 03/13/2022 Priority: Not Prioritized ??? Temporomandibular joint disorder 03/13/2022 Priority: Not Prioritized ??? Primary fibromyalgia syndrome 03/13/2022 Priority: Not Prioritized ??? Syncope and collapse 02/15/2022 Priority: Not Prioritized ??? Trauma 02/15/2022 Priority: Not Prioritized ??? Injury of head, initial encounter 02/15/2022 Priority: Not Prioritized ??? Fall, initial encounter 02/15/2022 Priority: Not Prioritized ??? Multiple closed fractures of facial bone, initial encounter ([facility]) 02/15/2022 Priority: Not Prioritized ??? Nausea 01/10/2022 Priority: Not Prioritized ??? Abdominal pain 12/07/2021 Priority: Not Prioritized ??? Abnormal serum creatinine level 12/07/2021 Priority: Not Prioritized ??? Anemia 12/07/2021 Priority: Not Prioritized ??? 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 Priority: Not Prioritized ??? Cardiomegaly 12/07/2021 Priority: Not Prioritized ??? Chronic depression 12/07/2021 Priority: Not Prioritized ??? Glaucoma 12/07/2021 Priority: Not Prioritized ??? Hyperkalemia 12/07/2021 Priority: Not Prioritized ??? Hyperthyroidism 12/07/2021 Priority: Not Prioritized ??? Intractable chronic migraine without aura 12/07/2021 Priority: Not Prioritized ??? Macular degeneration 12/07/2021 Priority: Not Prioritized ??? Migraine 12/07/2021 Priority: Not Prioritized ??? Systemic sclerosis ([facility]) 12/07/2021 Priority: Not Prioritized ??? Sprain of ankle 12/07/2021 Priority: Not Prioritized ??? Sciatica 12/07/2021 Priority: Not Prioritized ??? Recurrent major depression in remission ([facility]) 12/07/2021 Priority: Not Prioritized ??? Polyp of colon 12/07/2021 Priority: Not Prioritized ??? Perineal pain 12/07/2021 Priority: Not Prioritized ??? Nonexudative age-related macular degeneration 12/07/2021 Priority: Not Prioritized ??? 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 Multiple bruises 12/07/2021 Priority: Not Prioritized ??? Mixed collagen vascular disease ([facility]) 12/07/2021 Priority: Not Prioritized ??? Paronychia of toe of right foot 07/25/2021 Priority: Not Prioritized ??? Onychomycosis of toenail 07/17/2021 Priority: Not Prioritized ??? Chronic kidney disease 03/30/2019 Priority: Not Prioritized ??? Chronic obstructive pulmonary disease ([facility]) 03/30/2019 Priority: Not Prioritized ??? Hyposmolality 03/30/2019 Priority: Not Prioritized ??? Ulnar neuropathy 03/30/2019 Priority: Not Prioritized ??? Raynaud's disease 03/30/2019 Priority: Not Prioritized ??? Dyspnea on exertion 02/23/2019 Priority: Not Prioritized ??? Type 2 diabetes mellitus ([facility]) 02/23/2019 Priority: Not Prioritized ??? Type 2 diabetes mellitus with stage 3 chronic kidney disease, without long- term current use of insulin ([facility]) 02/23/2019 Priority: Not Prioritized ??? Mixed hyperlipidemia 02/23/2019 Priority: Not Prioritized ??? Degeneration of cervical intervertebral disc 12/09/2009 Medical History: Past Medical History: Diagnosis Date ??? Anemia ??? Ferrell's esophagus ??? CKD (chronic kidney disease), stage III ([facility]) ??? Diabetes ??? Disease of esophagus ??? Fibromyalgia ??? Glaucoma ??? HTN (hypertension) ??? Macular degeneration ??? Osteoarthritis ??? Raynaud disease ??? Sleep apnea ??? Ulnar neuropathy Surgical History: Past Surgical History: Procedure Laterality Date ??? Back Surgery lumbar and sacral laminectomy ??? CARPAL TUNNEL SURGERY Bilateral ??? Cervical Fusion N/A 06/04/2022 N/A; C5-C6 laminectomy, C4-T2 posterior instrumented spinal fusion ??? Cervical Laminectomy ??? Hysterectomy ??? NASAL POLYPECTOMY ??? Rotator Cuff Repair Bilateral ??? 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 Patient has had a hysterectomy. Hysterectomy OB History No obstetric history on file. Covid Vaccine: Lab Results: Recent Labs Base Name 06/08/22 0747 [id number] SPECIMENTYPE Arterial Recent Labs Component Name 06/21/22 0203 WBC 8.0 RBC 2.77* HCT 25.9* HGB 8.3* PLTCOUNT 415* MCV 93.5 MCH 30.0 MCHC 32.0 MPV 9.6 Recent Labs Component Name 06/20/22 1405 ABORH A POS ABSCG NEG Recent Labs Component Name 06/21/22 0050 BLOODU Negative WBCU 0-5 NITRITE Negative PROTEINU Negative Recent Labs Component Name 06/21/22 0203 POTASSIUM 4.2 CALCIUM 9.5 CO2 25 GLUCOSE 54* BUN 14 CREATININE 1.11* Recent Labs Component Name 06/08/22 0213 MAGNESIUM 1.7 Recent Labs Component Name 06/08/22 0213 PHOS 2.5* Recent Labs Component Name 06/20/22 1405 PT 13.4 INR 1.0 Recent Labs Component Name 06/20/22 2218 BNP 99 No results found for requested labs within last 120 days. Recent Labs Result Component Current Result Alkaline Phosphatase 62 (06/21/2022) ALT 10 (06/21/2022) Anion Gap 17 (06/21/2022) AST 15 (06/21/2022) eGFR by CKD-EPI 53 (L) (06/21/2022) documented in this encounter Miscellaneous Notes * Anesthesia Transfer of Care - Denita Taylor APRN-[facility] - 06/21/2022 4:59 PM CDT ANESTHESIA TRANSFER OF CARE NOTE Today's Date: 06/21/2022 Date of : 1950 Patient: Kandace Maria Douglas Procedure(s) with comments: ESOPHAGOGASTRODUODENOSCOPY (EGD) DIAGNOSTIC - A. small bowel biopsy r/o celiac small bowel capsule placed CAPSULE ENDOSCOPY (GASTROINTESTINAL IMAGING) - small bowel capsule placed Surgeon(s): Primary: Carmen Morales MD Preop Diagnosis: Pre-op Diagnois: * Coffee ground emesis [K92.0] Pre-op Meds (From admission, onward) Start Stop Status Route Frequency Ordered 06/21/22 1405 dextrose 10 % IV bolus See Hyperspace for full Linked Orders Report. -- Verified IV PRN 06/21/22 1406 06/21/22 1405 dextrose 10 % IV bolus See Hyperspace for full Linked Orders Report. -- Dispensed IV PRN 06/21/22 1406 06/21/22 1445 dextrose 5 % and 0.9% NaCl infusion 06/22 0044 Dispensed IV CONTINUOUS 06/21/22 1407 06/21/22 1405 glucagon (Glucagen) injection 1 mg -- Verified SC PRN 06/21/22 1406 06/21/22 1405 glucose (Diabetic Use) (Dex4 Glucose) oral liquid -- Verified PO PRN 06/21/22 1406 06/21/22 1405 glucose (Diabetic Use) oral gel -- Verified PO PRN 06/21/22 1406 06/21/22 1405 glucose chew tablet 4 tablet -- Verified PO PRN 06/21/22 1406 06/20/22 1638 iopamidol (Isovue 370) 76 % contrast 06/22 1637 Dispensed IV CONTRAST ONCE 06/20/22 1638 06/20/22 2100 pantoprazole (Protonix) injection 40 mg -- Dispensed IV 2 TIMES DAILY 06/20/22 1619 06/21/22 1115 scopolamine (Transderm-Scop) 1 patch See Hyperspace for full Linked Orders Report. -- Dispensed TD EVERY 72 HOURS 06/21/22 1036 06/21/22 1045 scopolamine patch placement confirmation See Hyperspace for full Linked Orders Report. -- Verified TD 2 TIMES DAILY 06/21/22 1036 Post-op Diagnosis: * Coffee ground emesis [K92.0] . Allergies Allergen Reactions ??? Latex ??? Cyclobenzaprine ??? Fluoxetine ??? Naproxen ??? Sulfamethoxazole W-Trimethoprim ??? Eggs ??? Other demeral ??? Urecholine [Bethanechol Chloride] Vitals: Patient Vitals for the past 3 hrs: BP Temp Pulse Resp SpO2 Pain Rating Score #1 06/21/22 1600 162/70 -- 86 18 96 % -- 06/21/22 1549 155/71 98.3 ??F (36.8 ??C) 85 18 97 % 0 Lines, Drains, and Airways Type Details Placement Removal Peripheral IV Date: 06/20/22; Time: 2300; Orientation: Left, Posterior; Location: Forearm; Placed By: RN; Gauge: 20 Gauge; Locals: None; Tolerance: Well 06/20/22 2300 by Leobardo Chisholm RN Intraprocedure I/O Totals None Patient Transfer Location: PACU Transport Airway: spontaneous respirations Transport Monitoring: heart rate and continuous pulse oximetry Complications: None Handoff Given? Yes Checklist or Protocol - The lee handoff elements that must be included in the transfer of care checklist include: 1. Identification of patient. 2. Identification of responsible practitioner (PACU nurse or advanced practitioner). 3. Discussion of pertinent medical history. 4. Discussion of the surgical/procedure course (procedure, reason for surgery, procedure performed). 5. Intraoperative anesthetic management and issue/concerns. 6. Expectations/Plans for the early post-procedure period. 7. Opportunity for questions and acknowledgement of understanding of report from the receiving PACUteam. MIRIAM Patino documented in this encounter Plan of Treatment Upcoming Encounters Date Type Department Care Team (Late st Contact Info) Description 06/02/2024 1:45 PM JEWELRY FINISHER Office Visit [facility] - Orthopedics [address] [place] [address], [facility] [place] [address] Deon Taylor MD [address] [place] [id number] documented as of this encounter Visit Diagnoses Not on filedocumented in this encounter Administered Medications Inactive Administered Medications - up to 3 most recent administrations Medication Order MAR Action Action Date Dose Rate Site lactated ringers infusion Intravenous, CONTINUOUS PRN, Starting on Jeanette 06/21/22 at 1632, Until Jeanette 06/21/22 at 1658, Anesthesia Intra-op $ New Bag/Syringe 06/21/2022 4:32 PM CDT lidocaine HCl (PF) (Xylocaine MPF) 2 % injection Intravenous, PRN, Starting on Jeanette 06/21/22 at 1635, Until Jeanette 06/21/22 at 1658, Anesthesia Intra-op $ Given 06/21/2022 4:35 PM CDT 40 mg ondansetron (Zofran) injection Intravenous, PRN, Starting on Jeanette 06/21/22 at 1650, Until Jeanette 3/23/23 at 1658, Anesthesia Intra-op $ Given 06/21/2022 4:50 PM CDT 4 mg propofol (Diprivan) infusion Intravenous, CONTINUOUS PRN, Starting on Jeanette 06/21/22 at 1635, Until Jeanette 06/21/22 at 1658, Anesthesia Intra-op $ New Bag/Syringe 06/21/2022 4:35 PM CDT 150 mcg/kg/min 55.08 mL/hr propofol (Diprivan) injection Intravenous, PRN, Starting on Jeanette 06/21/22 at 1635, Until Jeanette 06/21/22 at 1658, Anesthesia Intra-op $ Given 06/21/2022 4:35 PM CDT 100 mg documented in this encounter Care Teams Pickle Pumper Relationship Specialty Start Date End Date Karrie Phillips MD [address] [place] [address] PCP - General 03/13/22 documented as of this encounter
--- OUTSIDE RECORDS SUMMARY | 2024-04-11 03:31 | XMS_ITS | Encounter Summary ---
Author Organization [facility] Address [address] [facility] [place] [address] Care Team Providers Care Accounts Payable Lead Name Role Phone Karrie Phillips MD Primary Care Provider [phone] Encounter Details Date Type Department Care Team (Late st Contact Info) Description 07/18/2022 10:46 AM CDT - 07/18/2022 11:00 AM CDT Hospital Encounter [facility] DIAGNOSTIC RAD [facility] [address] [facility] [place] [phone] Lyla Blackwell, REGISTERED CLINICAL DIETITIAN-CAR PRE COOLER [address] [facility] [place] [address] Discharge Disposition: Home or Self Care Social [...] and heating? Not hard at all 06/04/2022 [facility] [place] of Occupat ional Health - Occupational Stress [...] mouth every evening 06/08/2022 saline nasal spray ([place]; Baby [place]) 0.65 % nasal spray [place] 1 (one) spray into each nostril as needed for Dry Nose 15 mL 02/19/2022 vitamin D3 (Cholecalciferol) 10 MCG (400 UNIT) tablet Take 2 (two) tablets by mouth once daily 06/09/2022 documented as of this encounter Plan of Treatment Upcoming Encounters Date Type Department Care Team (Late st Contact Info) Description 06/02/2024 1:45 PM ASSEMBLER TRACTOR Office Visit [facility] - Orthopedics [facility] [place] [address] Deon Taylor MD [address] [place] [address] documented as of this encounter Procedures Procedure Name Priority Date/Time Associated Diagnosis Comments XR THORACIC SPINE 2VW Routine 07/18/2022 11:04 AM CDT Degeneration of cervical intervertebral disc documented in this encounter Results * XR THORACIC SPINE 2VW (07/18/2022 11:04 [...] MD on 07/18/2022 11:31 AM Lyla Blackwell REGISTERED CLINICAL DIETITIAN-CAR PRE COOLER DIAGNOSTIC IMAG ING ORDERABLES documented in this encounter Visit Diagnoses Not on filedocumented in this encounter Care Teams Accounts Payable Lead Relationship Specialty Start Date End Date Karrie Phillips MD [address] [place] [address] PCP - General 03/13/22 documented as of this encounter
--- OUTSIDE RECORDS SUMMARY | 2024-04-11 03:31 | XMS_ITS | Encounter Summary ---
Author Organization [facility] Address [address] [place] [address] Care Team Providers Care Mds Manager Name Role Phone Karrie Phillips MD Primary Care Provider [phone] Reason for Visit * Auth/Cert (Routine) Specialty Diagnoses / Procedures Referred By Everardo fried Referred To Contact Diagnoses Cervical myelopathy (HCC) cervical myelopathy Procedures FUSION POSTERIOR CERVICAL (PCF) Referral ID Status Reason Start Date Expiration Date Visits Re quested Visits Authorized [id number] 1 1 Encounter Details Date Type Department Care Team (Late st Contact Info) Description 06/04/2022 5:08 AM CERTIFIED HEARING INSTRUMENT DISPENSER - 06/08/2022 9:15 PM [facility] Hospital Encounter SL [address] ACUTE [address] [place] [address] Deon Taylor MD [address] [place] [id number] Ama Gonzalez MD [address] [place] [address] [address] [facility] [place] [address] Surgery General Discharge Disposition: Rehab:Inpatient Social History Tobacco Use Types Packs/Day Years [...] you are drinking? Patient does not drink 3 Q3: How often do you have si x or more drinks on one occasion? Never 06/04/2022 Overall Financial Resource Strain (CARDIA) Answe r Date Recorded How hard is it for you to pa y for the very basics like food, housing, medical care, and heating? Not hard at all 06/04/2022 [facility] Occupat ional Health - Occupational Stress [...] place to sleep or slept in a snf (including now)? No 06/04/2022 Sex and Gender Information Value Date Recorded Sex Assigned at Not on file Gender Identity Not on file Sexual Orientation Not on file documented as of this encounter Last Filed Vital Signs Vital Sign Reading Time Taken Comments Blood Pressure 130/85 06/08/2022 8:09 PM CERTIFIED HEARING INSTRUMENT DISPENSER Pulse 65 06/08/2022 8:09 PM CERTIFIED HEARING INSTRUMENT DISPENSER Temperature 36.6 ??C (97.8 ??F) 06/08/2022 8:09 PM CS T Respiratory Rate 16 06/08/2022 8:09 PM CERTIFIED HEARING INSTRUMENT DISPENSER Oxygen Saturation 100% 06/08/2022 8:09 PM CERTIFIED HEARING INSTRUMENT DISPENSER Inhaled Oxygen Concentration - - Weight 60.5 kg (133 lb 6.4 oz) 06/04/2022 5:52 A M CERTIFIED HEARING INSTRUMENT DISPENSER Height 154.9 cm (5' 1 ) 06/04/2022 5:52 AM CERTIFIED HEARING INSTRUMENT DISPENSER Body Mass Index 25.21 06/04/2022 5:52 AM CERTIFIED HEARING INSTRUMENT DISPENSER documented in this encounter Functional Status Functional [...] No 06/04/2022 documented as of this encounter Discharge Summaries * Tammi Perez MD - 06/08/2022 3:11 PM CST Physician Discharge Summary Patient ID: Kandace Cole [id number] 72 year old 1950 Admit date: 06/04/2022 Discharge date: 06/08/2022 Admitting Physician: Deon Taylor MD Discharge Physician: Tammi Perez MD Admission Diagnoses: Cervical Myelopathy Discharge Diagnoses: Active Problems: Degeneration of cervical intervertebral disc Admission Condition: Fair Discharged Condition: Good Indication for Admission: Cervical Myelopathy. Scheduled Orthopedic intervention Hospital Course: Ms Cole is a 72 yo female with PMHx significant for HTN, CKD, DM-2, OA, ARCHIE/MMD??admitted for elective spinal surgery. S/p C5-C6 laminectomy, ??C4-T2 posterior instrumented spinal fusion with Orthopedic Surgery ON 06/04. Transfer to Geriatric Medicine on 06/05 for continued management. Continuing pain control regiment. Stay c/b acute on chronic anemia. Workup showed KAIN. Given 1 unit of pRBCs and started on IV iron with improvement. Also c/b significant RLS which improved with treatment of KAIN and initiation of gabapentin. Evaluated by PT/OT who are recommending rehab. Discharged to [facility]. ?? Consults: Orthopedics Significant Diagnostic Studies: See hospital course Treatments: See hospital course Discharge Exam: Gen: Alert, cooperative, no distress. head lac well healing Head: Normocephalic, without obvious abnormality, atraumatic Eyes: Conjunctivae/corneas clear, EOMI Nose: Mucosa normal. No drainage. Throat: Moist mucous membranes Neck: No JVD, trachea midline. c-collar in place. Back: Symmetric, no curvature Resp: CTAB, no wheezes/rales/rhonchi CV: RRR, S1S2, No M/R/G Abd: S/NT/ND, BS+, no bruits Ext: No edema b/l LE. significantly improvement spasms of lower extremities Pulses: 2+ DP B Skin: Skin color, texture, turgor normal. No rashes or lesions Neuro: No focal deficits ?? Disposition: Inpatient Rehab Patient Instructions: A Note From Your Doctors: Dear Kandace Cole, You were admitted to the hospital for scheduled Orthopedic intervention on your cervical spine. Youhad this procedure preformed on 06/04/2022 and tolerated it well. You were also found to have acute on chronic iron deficiency anemia. You required a unit of blood during your admission and were also given multiple doses of IV iron. You will need to follow up with your PCP on discharge regarding this. You would benefit from a colonoscopy to evaluate for etiology of your iron deficiency upon discharge (this can be discussed further with your PCP). Additionally, you had significant restless leg syndrome during your admission which improved with repletion of your iron stores. We also started you on a medication called gabapentin to help with this which can be continued as an outpatient. You wereevaluated by our therapists who recommended you go to rehab to get stronger post operatively. As your condition is improving, we feel that you are safe for discharge today. Please see below for updated list of medications and upcoming follow up appointments. MEDICATIONS: A number of changes have been made to your medications as detailed below: Medication List START taking these medications gabapentin 300 MG capsule Commonly known as: Neurontin Take 1 (one) capsule by mouth 3 times daily CHANGE how you take these medications QUEtiapine 100 MG tablet Commonly known as: SEROquel Take 1 (one) tablet by mouth every evening What changed: ?? medication strength ?? how much to take ?? when to take this vitamin D3 10 MCG (400 UNIT) tablet Commonly known as: Cholecalciferol Take 2 (two) tablets by mouth once daily Start taking on: June 09, 2022 What changed: ?? medication strength ?? how much to take CONTINUE taking these medications acetaminophen 325 MG tablet Commonly known as: Tylenol Take 2 (two) tablets by mouth every 6 hours as needed Maximum allowable Acetaminophen amount = 4 Grams (4000 mg) / 24 hours. artificial tears ophthalmic solution Instill 1 (one) drop into both eyes every 4 hours as needed buPROPion SR 12hr 100 MG tablet Commonly known as: Wellbutrin-SR carvedilol 6.25 MG tablet Commonly known as: Coreg escitalopram 20 MG tablet Commonly known as: Lexapro Take 1 (one) tablet by mouth once daily latanoprost 0.005 % ophthalmic solution Commonly known as: Xalatan lisinopril 20 MG tablet Commonly known as: Prinivil; Zestril meclizine 25 MG tablet Commonly known as: Antivert pantoprazole EC 40 MG tablet Commonly known as: Protonix Take 1 (one) tablet by mouth once daily pravastatin 40 MG tablet Commonly known as: Pravachol saline nasal spray 0.65 % nasal spray Commonly known as: [place]; [place] 1 (one) spray into each nostril as needed for Dry Nose STOP taking these medications Bydureon BCise 2 MG/0.85ML Auij Generic drug: Exenatide ER calcitriol 0.25 MCG capsule Commonly known as: Rocaltrol citalopram 20 MG tablet Commonly known as: CeleXA furosemide 20 MG tablet Commonly known as: Lasix PreserVision AREDS 2 capsule Where to Get Your Medications Information about where to get these medications is not yet available Ask your nurse or doctor about these medications ?? gabapentin 300 MG capsule ?? QUEtiapine 100 MG tablet ?? vitamin D3 10 MCG (400 UNIT) tablet If you have any questions about your medications, please be sure to ask the pharmacy when you shredder picker your prescription. You may also call your primary provider to ask if you should be taking your medication. FOLLOW-UP: It is important that you follow-up with all appointments that have been made on your behalf. These appointments include: Future Appointments Monday June 20, 2022 8:45 AM Appointment with Deon Taylor at [facility] [address]L ([phone]) [address] [facility], First Level [facility] [place] [address] If a follow-up with your primary care provider has not been scheduled, please schedule an appointment to follow-up on your hospitalization. If there is a conflict, please call the clinic ahead of time and reschedule the appointment. Regards, Internal Medicine Department [facility] [address] [place] [address] Orthopedic Spine Surgery Patient Discharge Instructions Patient Discharge Instructions Summary: FOLLOW UP: Please plan to follow-up with Dr. Taylor in 2 week(s). You will need to call the clinic toschedule/confirm this visit (contact information below). If you have any questions or concerns please call before your visit. Location information is listed at the bottom of this page. - QUESTIONS/ISSUES: --Please contact Dr. Taylor's nurse, Anabell Avendaño RN, at with any questions or concerns. - ACTIVITY: Activity as tolerated in collar --Check your skin often for redness, sores, or dry patches --Your collar should be worn at all times, even when sleeping --Avoid overhead reaching until your sutures are removed --No driving while instructed to wear the collar - WOUND CARE: --Please keep dressing clean, dry, and intact. Avoid getting your incision wet. --OK to remove your dressing to shower. Do not scrub over your incision. Pat dry when done and replace with a new dressing. --Ok to change dressing every 1-2 days or sooner if it becomes wet or saturated. Replace with dry gauze and Medipore tape. --Please keep incision covered until your follow up appointment. --Sutures/Luba: to be removed at your next clinic appointment --Always wash your hands with soap and water before and after changing your dressing. --Always keep your surgical incision/dressing clean and dry. If you experience increasing pain at your incision site, redness, swelling, increasing discharge, foul odors, or fevers (greater than 100.4) and chills you should call the orthopaedic office. If you feel this is an emergency you should beevaluated in the Emergency Department of a nearby hospital. - HOME MEDICATIONS: --Resume your home medications as before unless directed otherwise - PAIN MEDICATION: --For mild to moderate pain, please take Acetaminophen as instructed --Please reserve narcotic medication for severe pain --Please take colace for constipation when taking narcotic medications --Please do not exceed 3,000 mg of Acetaminophen in a 24 hour period --No driving while taking prescription pain medications --Do not drink alcohol or take tranquilizers while taking prescription pain medications --Do not take medicine that has not been prescribed by your provider --Avoid anti-inflammatories such as Ibuprofen or Aleve - BOWEL REGIMEN/CONSTIPATION (in the postoperative period): -- You are being sent home with prescriptions to prevent constipation, which can worsen while taking narcotics (pain medications). -- It is highly encouraged to take Colace/Docusate, a stool softener, twice daily during your healing period. This prevents constipation or straining to have a bowel movement, which could damage yoursurgical site(s). -- If Colace/Docusate does not work after 2-3 days, it's recommended to try Miralax (mild laxative)daily. -- If you are still experiencing constipation after 2-3 days of taking Miralax, you're encouraged to try Senna (a stimulant) daily. -- Ideally, your bowel movements should be soft and not require any straining. However, if diarrheastarts to occur, it's recommended to stop Senna first, then stop Miralax and finally Colace/Docusate, if necessary. -- The above medications, along with adequate fluid intake, decreased use of narcotics and activity(as allowed per post-op instructions), should help prevent constipation. PRESCRIPTION PAIN MEDICATION INFORMATION: - When at home, alternate Tylenol and narcotic medications like morphine, Dilaudid, oxycodone, etc for better control of breakthrough pain. Alternating between the two medications helps with pain coverage for breakthrough pain. - Do not drink alcohol while taking prescription pain medicine. - Do not drive any motor vehicles while taking prescription pain medicines or any medicines that make you sleepy. - Take the medicine at the time of the day when you most often feel pain. This may be: when you wake up in the morning, before you start certain activities, or when you are ready for bed. Cutting back strategies: - As your pain decreases, you can go for longer times between doses (from 4 hours to 6 or 8 hours).Or take one pill instead of two, especially for narcotic medications. - Start decreasing pain medicine as your pain decreases. Tylenol: - For better pain relief alternate acetaminophen (Tylenol) and narcotic medications like morphine, dilaudid, oxycodone, etc. Alternating helps with coverage for breakthrough pain. - Many pain medicines, like Tylenol??, have acetaminophen. Do not take more than 3,000 milligrams (3 grams) of acetaminophen in 24 hours (more than that could damage your liver) - Acetaminophen is also found in cough and cold medicines. NSAIDs: - Non steroid anti-inflammatory drugs (NSAIDs) such as Advil??, Ibuprofen (Motrin??), Relafen??, Naproxysyn??, Celebrex?? can be taken for a period of 3-5 days for breakthrough pain especially after supply of narcotics medications gets over. Do not take it for prolonged period unless your surgeon approved it, as these medicines interfere with bone healing. What if the above strategies do not control my pain? - If none of the above solutions help, contact your surgeon as needed. For narcotic medication refills: - Be sure to call your surgeon for refills at least 24 hours prior to need (prescription pain medications may need more time, as a written prescription is needed for refills). MEDICATIONS cannot be refilled after 4:00 p.m. during the week, on weekends or holidays. Please contact our clinic call center at if you need to schedule or change an appointment. For medical emergencies, please call 911. Follow up Contact Information: [facility] Orthopedic Surgery office contact information: [facility] ([facility]) [address] [place] [address], 1[address] [place] [address] [place] [id number] [facility], [address] [place] [address] Visit our website at [email or web address] for information about our practice and an interactive health encyclopedia. Please visit [email or web address] to access your health record, ask questions, request medication refills, and request appointments for non-urgent needs after you have configured your [employer] account. If you do not currently have access, please contact one of our staff members or call [phone]. For after hour emergencies, please call [phone] and press 0 for the electric freight car operator in order to page the orthopedic resident auto service station attendant. This list of medications is preliminary and tentative: please see the Patient Discharge Instructions for patient's discharged home or the Facility Transfer Order for the final and accurate medications list. Current Discharge Medication List START taking these medications Details gabapentin (Neurontin) 300 MG capsule Take 1 (one) capsule by mouth 3 times daily CONTINUE these medications which have CHANGED Details QUEtiapine (SEROquel) 100 MG tablet Take 1 (one) tablet by mouth every evening vitamin D3 (Cholecalciferol) 10 MCG (400 UNIT) tablet Take 2 (two) tablets by mouth once daily CONTINUE these medications which have NOT CHANGED Details acetaminophen (Tylenol) 325 MG tablet Take 2 (two) tablets by mouth every 6 hours as needed Maximumallowable Acetaminophen amount = 4 Grams (4000 mg) / 24 hours. artificial tears ophthalmic solution Instill 1 (one) drop into both eyes every 4 hours as needed buPROPion SR 12hr (Wellbutrin-SR) 100 MG tablet Take 1 (one) tablet by mouth 2 times daily carvedilol (Coreg) 6.25 MG tablet Take 1 (one) tablet by mouth 2 times daily escitalopram (Lexapro) 20 MG tablet Take 1 (one) tablet by mouth once daily latanoprost (Xalatan) 0.005 % ophthalmic solution lisinopril (Prinivil; Zestril) 20 MG tablet Take 1 (one) tablet by mouth once daily meclizine (Antivert) 25 MG tablet meclizine 25 mg tablet 1 po tid prn pantoprazole EC (Protonix) 40 MG tablet Take 1 (one) tablet by mouth once daily pravastatin (Pravachol) 40 MG tablet pravastatin 40 mg tablet TAKE 1 TABLET BY MOUTH DAILY saline nasal spray ([place]; Baby [place]) 0.65 % nasal spray [place] 1 (one) spray into each nostril as needed for Dry Nose STOP taking these medications calcitriol (Rocaltrol) 0.25 MCG capsule Comments: Reason for Stopping: citalopram (CeleXA) 20 MG tablet Comments: Reason for Stopping: Exenatide ER (Bydureon BCise) 2 MG/0.85ML AUIJ Comments: Reason for Stopping: furosemide (Lasix) 20 MG tablet Comments: Reason for Stopping: Multiple Vitamins-Minerals (PreserVision AREDS 2) capsule Comments: Reason for Stopping: Tammi Perez MD, 06/08/2022 at 3:12 PM IFIED HEARING INSTRUMENT DISPENSER Associated attestation - Ama Gonzalez MD - 06/08/2022 7:17 PM CERTIFIED HEARING INSTRUMENT DISPENSER I have verified the documentation and discharge recommendations completed by the medicine resident.I have personally performed a physical exam and have personally reviewed the data to support my medical decision-making as outlined in the resident's note, and I arrive independently at the same conclusion. We discussed the recommendation and educated the patient at the bedside before discharge. In summary, Mrs Cole is a 72 year old female who lives at home with the grandson, independent forADLs and most IADLS (limited by pain), has CKD, anemia, HTN, OA, DM2 controlled (A1c 5.1 06/06/22), glaucoma, restless leg syndrome, prior admissions with dizziness with evidence of orthostatic hypotension and hyponatremia, frequent falls and polypharmacy, who was admitted to [facility] 06/04 for a planned cervical-thoracic posterior fusion with laminectomies for cervical myelopathy. The procedure was on 06/04/22 without complications, she felt better since the day of the surgery and with less weakness, working with PT/OT. Had increased movement in her legs from her RLS, in the setting of acute on chronic anemia, on 06/06 with Hb of 6/8 and transfused and started on IV iron. She stated she has been on iron in the past with no effect to oral presentation, due to decreased absorption and has received IV iron in the past, but not in the recent years. Iron panel confirms iron deficiency anemia. Nodocumented colonoscopy or work up for anemia in the chart, additional workup recommended to be completed by PCP. She was already on gabapentin and we added acetaminophen and PRN oxy for the pain withadequate control. Sodium was low after admission, with improvement at discharge to 133, potassium mildly elevated but BP is normal, adrenal insuffiency considered unlikely. She is on multiple antidepr essants and high dose of quetiapine (which was decreased), considered that could also be adding to the risk of falls, and with the SSRI the hyponatremia. She stated also hyponatremia has been chronicand they wanted to start her on salt pills at some point. Could be SIADH with low serum osm, still pending urine lytes this admission, last time measured on 01/2022 she had high urine osm and elevated sodium in urine, compatible with SIADH, possible from NSRI, recommend to check the sodium as outpatient and if it decreases again, consider discontinuing it but her mood appears controlled. Also at home on hypoglycemic medications for DM despite her a1c of 5.1, all medications for diabetes will be discontinued at discharge as hypoglycemia can also be adding to the falls. No evidence of orthostatic hypotension this admission but now complaining again of dizziness, although states she gets like this after blood or iron transfusions, asked to have the antivert restarted. Plan to discharge to acute rehab per PT/OT recommendations. Ama Gonzalez MD Geriatrics and Palliative Medicine Attending 06/08/2022 documented in this encounter Discharge Instructions * Discharge Instructions* Tammi Perez MD - 06/07/2022 11:07 AM CERTIFIED HEARING INSTRUMENT DISPENSER A Note From Your Doctors: Dear Kandace Cole, You were admitted to the hospital for scheduled Orthopedic intervention on your cervical spine. Youhad this procedure preformed on 06/04/2022 and tolerated it well. You were also found to have acute on chronic iron deficiency anemia. You required a unit of blood during your admission and were also given multiple doses of IV iron. You will need to follow up with your PCP on discharge regarding this. You would benefit from a colonoscopy to evaluate for etiology of your iron deficiency upon discharge (this can be discussed further with your PCP). Additionally, you had significant restless leg syndrome during your admission which improved with repletion of your iron stores. We also started you on a medication called gabapentin to help with this which can be continued as an outpatient. You wereevaluated by our therapists who recommended you go to rehab to get stronger post operatively. As your condition is improving, we feel that you are safe for discharge today. Please see below for updated list of medications and upcoming follow up appointments. MEDICATIONS: A number of changes have been made to your medications as detailed below: Medication List START taking these medications gabapentin 300 MG capsule Commonly known as: Neurontin Take 1 (one) capsule by mouth 3 times daily CHANGE how you take these medications QUEtiapine 100 MG tablet Commonly known as: SEROquel Take 1 (one) tablet by mouth every evening What changed: medication strength how much to take when to take this vitamin D3 10 MCG (400 UNIT) tablet Commonly known as: Cholecalciferol Take 2 (two) tablets by mouth once daily Start taking on: June 09, 2022 What changed: medication strength how much to take CONTINUE taking these medications acetaminophen 325 MG tablet Commonly known as: Tylenol Take 2 (two) tablets by mouth every 6 hours as needed Maximum allowable Acetaminophen amount = 4 Grams (4000 mg) / 24 hours. artificial tears ophthalmic solution Instill 1 (one) drop into both eyes every 4 hours as needed buPROPion SR 12hr 100 MG tablet Commonly known as: Wellbutrin-SR carvedilol 6.25 MG tablet Commonly known as: Coreg escitalopram 20 MG tablet Commonly known as: Lexapro Take 1 (one) tablet by mouth once daily latanoprost 0.005 % ophthalmic solution Commonly known as: Xalatan lisinopril 20 MG tablet Commonly known as: Prinivil; Zestril meclizine 25 MG tablet Commonly known as: Antivert pantoprazole EC 40 MG tablet Commonly known as: Protonix Take 1 (one) tablet by mouth once daily pravastatin 40 MG tablet Commonly known as: Pravachol saline nasal spray 0.65 % nasal spray Commonly known as: [place]; [place] 1 (one) spray into each nostril as needed for Dry Nose STOP taking these medications Bydureon BCise 2 MG/0.85ML Auij Generic drug: Exenatide ER calcitriol 0.25 MCG capsule Commonly known as: Rocaltrol citalopram 20 MG tablet Commonly known as: CeleXA furosemide 20 MG tablet Commonly known as: Lasix PreserVision AREDS 2 capsule Where to Get Your Medications Information about where to get these medications is not yet available Ask your nurse or doctor about these medications gabapentin 300 MG capsule QUEtiapine 100 MG tablet vitamin D3 10 MCG (400 UNIT) tablet If you have any questions about your medications, please be sure to ask the pharmacy when you shredder picker your prescription. You may also call your primary provider to ask if you should be taking your medication. FOLLOW-UP: It is important that you follow-up with all appointments that have been made on your behalf. These appointments include: Future Appointments Monday June 20, 2022 8:45 AM Appointment with Deon Taylor at [facility] 1L ([phone]) [address] [facility] [id number] If a follow-up with your primary care provider has not been scheduled, please schedule an appointment to follow-up on your hospitalization. If there is a conflict, please call the clinic ahead of time and reschedule the appointment. Regards, Internal Medicine Department [facility] [address] [place] [address] Orthopedic Spine Surgery Patient Discharge Instructions Patient Discharge Instructions Summary: FOLLOW UP: Please plan to follow-up with Dr. Taylor in 2 week(s). You will need to call the clinic toschedule/confirm this visit (contact information below). If you have any questions or concerns please call before your visit. Location information is listed at the bottom of this page. - QUESTIONS/ISSUES: --Please contact Dr. Taylor's nurse, Anabell Avendaño RN, at with any questions or concerns. - ACTIVITY: Activity as tolerated in collar --Check your skin often for redness, sores, or dry patches --Your collar should be worn at all times, even when sleeping --Avoid overhead reaching until your sutures are removed --No driving while instructed to wear the collar - WOUND CARE: --Please keep dressing clean, dry, and intact. Avoid getting your incision wet. --OK to remove your dressing to shower. Do not scrub over your incision. Pat dry when done and replace with a new dressing. --Ok to change dressing every 1-2 days or sooner if it becomes wet or saturated. Replace with dry gauze and Medipore tape. --Please keep incision covered until your follow up appointment. --Sutures/Luba: to be removed at your next clinic appointment --Always wash your hands with soap and water before and after changing your dressing. --Always keep your surgical incision/dressing clean and dry. If you experience increasing pain at your incision site, redness, swelling, increasing discharge, foul odors, or fevers (greater than 100.4) and chills you should call the orthopaedic office. If you feel this is an emergency you should beevaluated in the Emergency Department of a nearby hospital. - HOME MEDICATIONS: --Resume your home medications as before unless directed otherwise - PAIN MEDICATION: --For mild to moderate pain, please take Acetaminophen as instructed --Please reserve narcotic medication for severe pain --Please take colace for constipation when taking narcotic medications --Please do not exceed 3,000 mg of Acetaminophen in a 24 hour period --No driving while taking prescription pain medications --Do not drink alcohol or take tranquilizers while taking prescription pain medications --Do not take medicine that has not been prescribed by your provider --Avoid anti-inflammatories such as Ibuprofen or Aleve - BOWEL REGIMEN/CONSTIPATION (in the postoperative period): -- You are being sent home with prescriptions to prevent constipation, which can worsen while taking narcotics (pain medications). -- It is highly encouraged to take Colace/Docusate, a stool softener, twice daily during your healing period. This prevents constipation or straining to have a bowel movement, which could damage yoursurgical site(s). -- If Colace/Docusate does not work after 2-3 days, it's recommended to try Miralax (mild laxative)daily. -- If you are still experiencing constipation after 2-3 days of taking Miralax, you're encouraged to try Senna (a stimulant) daily. -- Ideally, your bowel movements should be soft and not require any straining. However, if diarrheastarts to occur, it's recommended to stop Senna first, then stop Miralax and finally Colace/Docusate, if necessary. -- The above medications, along with adequate fluid intake, decreased use of narcotics and activity(as allowed per post-op instructions), should help prevent constipation. PRESCRIPTION PAIN MEDICATION INFORMATION: - When at home, alternate Tylenol and narcotic medications like morphine, Dilaudid, oxycodone, etc for better control of breakthrough pain. Alternating between the two medications helps with pain coverage for breakthrough pain. - Do not drink alcohol while taking prescription pain medicine. - Do not drive any motor vehicles while taking prescription pain medicines or any medicines that make you sleepy. - Take the medicine at the time of the day when you most often feel pain. This may be: when you wake up in the morning, before you start certain activities, or when you are ready for bed. Cutting back strategies: - As your pain decreases, you can go for longer times between doses (from 4 hours to 6 or 8 hours).Or take one pill instead of two, especially for narcotic medications. - Start decreasing pain medicine as your pain decreases. Tylenol: - For better pain relief alternate acetaminophen (Tylenol) and narcotic medications like morphine, dilaudid, oxycodone, etc. Alternating helps with coverage for breakthrough pain. - Many pain medicines, like Tylenol??, have acetaminophen. Do not take more than 3,000 milligrams (3 grams) of acetaminophen in 24 hours (more than that could damage your liver) - Acetaminophen is also found in cough and cold medicines. NSAIDs: - Non steroid anti-inflammatory drugs (NSAIDs) such as Advil??, Ibuprofen (Motrin??), Relafen??, Naproxysyn??, Celebrex?? can be taken for a period of 3-5 days for breakthrough pain especially after supply of narcotics medications gets over. Do not take it for prolonged period unless your surgeon approved it, as these medicines interfere with bone healing. What if the above strategies do not control my pain? - If none of the above solutions help, contact your surgeon as needed. For narcotic medication refills: - Be sure to call your surgeon for refills at least 24 hours prior to need (prescription pain medications may need more time, as a written prescription is needed for refills). MEDICATIONS cannot be refilled after 4:00 p.m. during the week, on weekends or holidays. Please contact our clinic call center at if you need to schedule or change an appointment. For medical emergencies, please call 911. Follow up Contact Information: [facility] Orthopedic Surgery office contact information: [facility] ([facility]) [address] [place] [address], 1[address] [place] [address] [facility] [address], [address] [place] [address] Visit our website at [email or web address] for information about our practice and an interactive health encyclopedia. Please visit [email or web address] to access your health record, ask questions, request medication refills, and request appointments for non-urgent needs after you have configured your [employer] account. If you do not currently have access, please contact one of our staff members or call [phone]. For after hour emergencies, please call [phone] and press 0 for the electric freight car operator in order to page the orthopedic resident auto service station attendant. IFIED HEARING INSTRUMENT DISPENSER documented in this encounter Medications at Time of Discharge [...] (one) tablet by mouth 2 times daily gabapentin (Neurontin) 300 MG capsule Take 1 (one) capsule by mouth 3 times daily 30 capsule 3 06/08/2022 latanoprost (Xalatan) 0.005 % ophthalmic solution 03/07/2022 lisinopril (Prinivil; Zestril) 20 MG tablet Take 1 (one) tablet by mouth once daily meclizine (Antivert) 25 MG tablet meclizine 25 mg tablet 1 po tid prn 07/13/2021 pantoprazole EC (Protonix) 40 MG tablet Take 1 (one) tablet by mouth once daily 02/20/2022 pravastatin (Pravachol) 40 MG tablet pravastatin 40 mg tablet TAKE 1 TABLET BY MOUTH DAILY QUEtiapine (SEROquel) 100 MG tablet Take 1 (one) tablet by mouth every evening 06/08/2022 saline nasal spray ([place]; [place]) 0.65 % nasal spray [place] 1 (one) spray into each nostril as needed for Dry Nose 15 mL 02/19/2022 vitamin D3 (Cholecalciferol) 10 MCG (400 UNIT) tablet Take 2 (two) tablets by mouth once daily 06/09/2022 escitalopram (Lexapro) 20 MG tablet Take 1 (one) tablet by mouth once daily 02/20/2022 06/23/2022 documented as of this encounter Progress Notes * Sammi Zayas RN - 06/08/2022 8:07 PM CST Problem: Pain/Discomfort Goal: Patient exhibits reduced pain/discomfort as evidenced by pain scores Outcome: Progressing Goal: Patient uses pharmacological and non-pharmacological pain management strategies. Outcome: Progressing Goal: Patient verbalizes acceptable level of pain relief and ability to engage in desired activity. Outcome: Progressing Problem: Fall Risk Goal: Fall risk and fall related injury risk are minimized (interventions related to the fall risk can be found in the flowsheet documentation) Outcome: Progressing Problem: Ineffective breathing pattern related to obstructive sleep apnea Goal: Maintains optimal sleep pattern, as evidenced by relaxed breathing at normal rate and depth. Outcome: Progressing Goal: Adheres to CPAP (Continuous Positive Airway Pressure) device regimen as prescribed. Outcome: Progressing Problem: Sleep deprivation related to sleep apnea. Goal: Achieves restful, refreshing sleep pattern. Outcome: Progressing Problem: Nutrient: Increased nutrient needs (specify) Goal: Total intake will meet estimated nutrient needs Outcome: Progressing Problem: Grooming Goal: LTG - Patient will complete daily grooming tasks Outcome: Progressing Problem: Balance Goal: LTG - Patient will maintain balance to allow for safe mobility Outcome: Progressing IFIED HEARING INSTRUMENT DISPENSER * Makenzie Choi RN - 06/08/2022 3:57 PM CST Problem: Pain/Discomfort Goal: Patient exhibits reduced pain/discomfort as evidenced by pain scores 06/08/2022 1557 by Makenzie Choi, RN Outcome: Adequate for Discharge 06/08/2022 1420 by Makenzie Choi RN Outcome: Progressing Goal: Patient uses pharmacological and non-pharmacological pain management strategies. 06/08/2022 155 by Makenzie Choi RN Outcome: Adequate for Discharge 06/08/2022 1420 by Makenzie Choi RN Outcome: Progressing Goal: Patient verbalizes acceptable level of pain relief and ability to engage in desired activity. 06/08/2022 155 by Makenzie Choi RN Outcome: Adequate for Discharge 06/08/2022 1420 by Makenzie Choi RN Outcome: Progressing Problem: Fall Risk Goal: Fall risk and fall related injury risk are minimized (interventions related to the fall risk can be found in the flowsheet documentation) 06/08/2022 155 by Makenzie Choi RN Outcome: Adequate for Discharge 06/08/2022 1420 by Makenzie Choi RN Outcome: Progressing Problem: Ineffective breathing pattern related to obstructive sleep apnea Goal: Maintains optimal sleep pattern, as evidenced by relaxed breathing at normal rate and depth. 06/08/20221556 by Makenzie Choi RN Outcome: Adequate for Discharge 06/08/20220 by Makenzie Choi RN Outcome: Progressing Goal: Adheres to CPAP (Continuous Positive Airway Pressure) device regimen as prescribed. 06/08/20221556 by Makenzie Choi RN Outcome: Adequate for Discharge 06/08/20221419 by Makenzie Choi RN Outcome: Progressing Problem: Sleep deprivation related to sleep apnea. Goal: Achieves restful, refreshing sleep pattern. 06/08/20221556 by Makenzie Choi RN Outcome: Adequate for Discharge 06/08/2022 1420 by Makenzie Choi RN Outcome: Progressing Problem: Nutrient: Increased nutrient needs (specify) Goal: Total intake will meet estimated nutrient needs 06/08/20221556 by Makenzie Choi RN Outcome: Adequate for Discharge 06/08/2022 1420 by Makenzie Choi RN Outcome: Progressing Problem: Grooming Goal: LTG - Patient will complete daily grooming tasks 06/08/20221556 by Makenzie Choi RN Outcome: Adequate for Discharge 06/08/2022 1420 by Makenzie Choi RN Outcome: Progressing Problem: Balance Goal: LTG - Patient will maintain balance to allow for safe mobility 06/08/2022 1557 by Makenzie Choi, RN Outcome: Adequate for Discharge 06/08/2022 1420 by Makenzie Choi RN Outcome: Progressing IFIED HEARING INSTRUMENT DISPENSER * Charissa Murphy - 06/08/2022 2:52 PM CST Facility Transfer Note Level of Care: Actual level of care at discharge: Acute Rehab Facility Facility Name: (include name of person confirming admission): Actual discharge provider: [facility] Made Aware of Special Needs (if applicable): n/a RN Call Report to:[phone] Fax D/C Orders to:[phone] MD to MD: Dr Baldwin [phone] Transportation (company and number): [employer]: [phone] Certificate of Medical Necessity rationale: weakness, impaired mobility, unsteady gait, spinal precautions Date/time of transfer: 06-08-22 @ Accepting MD and contact #: Denny Completed and Signed [id number] (if applicable): n/a Family/Other Notified of Transfer (name/phone): patient Authorization Skilled Care: Authorization for Transportation: Verified Qualifying Stay(Skilled Only): NOT APPLICABLE Comments: Name/Phone number: Charissa Lawrence Jeffrey [phone] IFIED HEARING INSTRUMENT DISPENSER * Joanna Easley PT - 06/08/2022 2:24 PM CST [facility] Physical Medicine and Rehabilitation Physical Therapy Progress Note Patient: Kandace Cole Med Record Number: [id number] Date of : 1950 Age: [age] year old PPE worn by staff: mask - procedural;gloves PPE worn by patient: mask - procedural Recommendations: Discharge PT Discharge Recommendations: Patient would benefit from intensive 3-hour multidisciplinary therapy This recommendation is made due to ongoing intensive PT functional needs: ability to actively participate in intensive therapy 3 hours/day, 5 days a week;patient has the need for more than one skilled therapy service;motivated to participate in therapy;likely to return to the community at dischargewith support system;patient demonstrates a significant functional decline and would benefit from skilled therapy intervention to restore function SUBJECTIVE: Subjective: Patient was agreeable to therapy. Pain Assessment: Pain Location #1 Pain Scale/Observation: Numeric (0-10) Pain Rating Score #1: 6 PRECAUTIONS: Activity Level: Activity as Tolerated Spine Precautions: Yes Spine Precautions: [place] OBJECTIVE: At start of therapy session, patient found in bed and with bed alarm on General Appearance: 72 y/o female in NAD LDAs: IV's: Peripheral line Vitals: (*Assess the 3 levels of oxygen saturations both for room air and 02 unless rest on room air is 88% or less). Rest BP: HR: 84 Sp02 99% Room Air Post Activity BP: HR: 87 Sp02 100% Room Air Observations: denies SOB during session; states that she gets dizzy occasionally when she looks up . Patient advised to look straight ahead and educated on purpose of c-collar to immobilize neck. Mental Status/Cognition: Level of Consciousness-Adult: Alert Orientation Level: Oriented X4 Cognition: Follows Commands-Consistent Attention Span: Appears intact Following Commands: Follows all commands and directions without difficulty Awareness of Errors: Decreased awareness of deficits Problem Solving: Assistance required to identify errors made Mobility: A gait belt and non-slip socks were used for all out of bed activity this date. Bed Mobility: Rolling: Minimum Assistance to Left Supine to Sit: Minimal Assistance with HOB in semi-fowlers position Sit to Supine: Minimal Assistance Transfers: Sit to Stand: Stand By Assist Stand to Sit: Stand By Assist Transfer Device: Gait belt;Walker-2 Wheeled Gait: Distance Ambulated: (75 feet x 2) Ambulation: Assistive Device: Gait Belt;Walker-2 Wheeled Ambulation: Level of Assistance: Minimum Assistance Ambulation: Gait Deviations: (1 standing rest break; short step length with decreased gait speed; verbal cues for navigating hallway) Balance: Balance Scales/Tests Used: Sitting: Static/Dynamic;Standing: Static/Dynamic Sitting - Static: Good Sitting - Dynamic: Good - Standing - Static: Fair + Standing - Dynamic: Fair ACTIVITY TOLERANCE: Patient's activity tolerance: fair. TREATMENT/INTERVENTIONS: bed mobility training, transfer training and gait training EDUCATION: While performing PT, Patient was instructed in:functional mobility training, safety awareness/fall precautions , spine precautions Presented to patient who demonstrates Fair understanding of instructions given. ASSESSMENT: Patient would benefit from additional Physical Therapy sessions to achieve the following functionalgoals to enhance independence. Short Term Goals:?? Patient will perform bed mobility??with minimal assist Patient will transfer sit to/from stand??with stand by assist Patient will transfer bed to/from chair??with stand by assist Patient will ambulate??75??feet with minimal assist??and appropriate AD ?? Half-Way Goal(s): Patient to discharge to appropriate next level of inpatient care. INFORMED CONSENT TO TREATMENT: Plan of care including recommended therapy, goals and frequency, discussed with patient who understands and agrees to proceed. Equipment Issued: none Plan: Patient continues to benefit from skilled therapy services., Continue with goals as established. If patient is discharged from the facility, this note serves as a discharge summary if further physical therapy visits did not occur. Refer to filed flowsheet for further details. Following therapy session, patient left in bed, with bed alarm on , with call light within reach, with Makenzie HANCOCK aware. IFIED HEARING INSTRUMENT DISPENSER * Makenzie Choi RN - 06/08/2022 2:20 PM CST Problem: Pain/Discomfort Goal: Patient exhibits reduced pain/discomfort as evidenced by pain scores Outcome: Progressing Goal: Patient uses pharmacological and non-pharmacological pain management strategies. Outcome: Progressing Goal: Patient verbalizes acceptable level of pain relief and ability to engage in desired activity. Outcome: Progressing Problem: Fall Risk Goal: Fall risk and fall related injury risk are minimized (interventions related to the fall risk can be found in the flowsheet documentation) Outcome: Progressing Problem: Ineffective breathing pattern related to obstructive sleep apnea Goal: Maintains optimal sleep pattern, as evidenced by relaxed breathing at normal rate and depth. Outcome: Progressing Goal: Adheres to CPAP (Continuous Positive Airway Pressure) device regimen as prescribed. Outcome: Progressing Problem: Sleep deprivation related to sleep apnea. Goal: Achieves restful, refreshing sleep pattern. Outcome: Progressing Problem: Nutrient: Increased nutrient needs (specify) Goal: Total intake will meet estimated nutrient needs Outcome: Progressing Problem: Grooming Goal: LTG - Patient will complete daily grooming tasks Outcome: Progressing Problem: Balance Goal: LTG - Patient will maintain balance to allow for safe mobility Outcome: Progressing IFIED HEARING INSTRUMENT DISPENSER * Annemarie Collazo COTA - 06/08/2022 2:04 PM CST [facility] Physical Medicine and Rehabilitation Occupational Therapy Progress Note Patient: Kandace Cole [facility] Record Number: [id number] Date of : 1950 Age: [age] year old PPE worn by staff: gloves;mask - procedural PPE worn by patient: gown - patient, clean;socks - clean Tech: None Recommendations: Discharge OT Discharge Recommendations: Patient would benefit from intensive 3-hour multidisciplinary therapy This recommendation is made due to ongoing intensive OT functional needs: motivated to participate in therapy;not at baseline due to impaired ability to complete ADL's;patient has the ability to progress and demonstrate measurable gains as a result of skilled therapy Nurse and Physical Therapy contacted regarding patient status and/or discharge plan. Activity Level: as tolerated, ambulate ad jolene PRECAUTIONS: Fall Risk Cervical Collar on at all times SUBJECTIVE: Subjective: Pt agreeable to therapy; pleasant and motivated thorughout session. Okay to treat per RN. Pain Assessment: Pain Location #1 Pain Scale/Observation: Numeric (0-10) Pain Rating Score #1: 8 Sedation Level #1: 1-Awake and alert OBJECTIVE: At start of therapy session, patient found in bed and with no alarm General Appearance: Pt in bed supine, NAD LDA: IV's: Peripheral line Vitals: (*Assess the 3 levels of oxygen saturations both for room air and 02 unless rest on room air is 88% or less). Rest BP: 127/97 HR: 80 Sp02 100% Room Air Post Activity BP: 142/64 HR: 80 Sp02 Sp02 Room Air Observations: Pt denied dizziness, SOB, pain, and fatigue throughout session. At end of session pt reported dizziness when returning to bed. BP taken at rest post activity. Mental Status/Cognition: Level of Consciousness-Adult: Alert;Eyes Open Spontaneously Orientation Level: Oriented X4 Cognition: Follows Commands-Consistent Attention Span: Appears intact Memory: Appears intact Following Commands: Follows all commands and directions without difficulty Safety Judgement: Decreased awareness of need for assistance Awareness of Errors: Decreased awareness of deficits;Assistance required to identify errors made;Assistance required to correct errors made Problem Solving: Assistance required to identify errors made;Assistance required to implement solutions;Assistance required to generate solutions Mobility: a gait belt and non-slip socks were used for all out of bed activity this date. Bed Mobility: Rolling: Minimum Assistance to Left Supine to Sit: Minimal Assistance with HOB in semi-fowlers position Sit to Supine: Minimal Assistance Transfers: Sit to Stand: Stand By Assist Stand to Sit: Stand By Assist Chair to Bed: Stand By Assist Bed to Chair: Stand By Assist Type of Transfer: Other (Comment) (Pt ambulating) Toilet Transfers: Stand By Assist Transfer Device: Gait belt;Walker-2 Wheeled Functional Ambulation: Functional mobility of ambulation to sink/bathroom with Min assist using ww. Comments: Pt overall SBA, occasional Min A provided. Balance: Balance Scales/Tests Used: Sitting: Static/Dynamic;Standing: Static/Dynamic Sitting - Static: Good - Sitting - Dynamic: Good - Standing - Static: Fair + Standing - Dynamic: Fair Activities of Daily Living: Feeding: Activity Does Not Occur Oral Facial Hygiene: Minimal Assistance (Pt performed standing at the sink.) Bathing: Activity Does Not Occur Upper Body Dressing: Stand By Assist Lower Body Dressing: Stand By Assist (to don undergarments. Pt lying in bed and completed in standing.) Toileting: Stand By Assist Splint Issued/Checked: none ACTIVITY TOLERANCE: Patient's activity tolerance: good. TREATMENT/INTERVENTIONS: ADL training Functional transfer training Endurance training Bed mobility Energy conservation Safety awareness EDUCATION: While performing OT, Patient was instructed in:functional mobility training, self-care training, safety awareness/fall precautions , use of call light Presented to patient who demonstrates Good understanding of instructions given. INFORMED CONSENT TO TREATMENT: Plan of care including recommended therapy, goals and frequency, discussed with patient who understands and agrees to proceed. ASSESSMENT: Patient continues to benefit from skilled Occupational Therapy to achieve the following functional goals. Short Term Goals: Goal Formation With patient Patient will perform grooming??standing at sink and with standby assist Patient will perform upper extremity dressing??with modified independence Patient will perform lower extremity dressing??with modified independence Patient will transfer to standard toilet??with stand by assist Patient will perform supine to/from sit??with stand by assist Patient will perform bed to chair??with stand by assist Machinist Supervisor Goal(s): Patient to discharge to appropriate next level of inpatient care Plan: Patient continues to benefit from skilled therapy services. If patient is discharged from the facility, this note serves as a discharge summary if further occupational therapy visits did not occur. Refer to filed flowsheet for further details. Following therapy session, patient left in bed, with bed alarm on , with call light within reach, with RNMigdalia aware, with therapy cues visible on white board. IFIED HEARING INSTRUMENT DISPENSER * Cammy Aleman RN - 06/08/2022 12:51 PM CST Case Management Progress Note Anticipated level of care at discharge: Acute Rehab Facility Discharge Plan: Rehab -please see SW note for further details READMISSION RISK SCORE is 17 at 12:51 PM 06/08/2022. Anticipated Discharge Date: Anticipated Discharge Date: 06/09/22 Patient/Family provided with list of resources? Unknown Preferred Provider / High Quality Network List given?: Unknown Reason for provider choice: Unknown Family Support (name and phone): Extended Emergency Contact Information Primary Emergency Contact: BARBARA CISNEROS Mobile Relation: Brother Secondary Emergency Contact: JanuaryBarbara Address: [place], [place] Relation: Other Transportation at Discharge: Family Follow Up Appointment:Dr. Karrie Phillips Transportation to MD:Family Equipment at Home: Equipment at Home: Chair-Shower;Grab Bars;Cane-Small Base Quad;Walker-2 Wheeled;Walker-4 Wheeled with Seat List DME patient requires but does not have: List DME pt. requires but does not have.: None DME Provider: Hunger Screening: Within the past 12 months, you worried that your food would run out before you got the money to buymore.: Never true Within the past 12 months, the food you bought just didn't last and you didn't have money to get more.: Never true Medication affordability concerns: [place]: Cammy Aleman RN Case environmental sustainability manager: [phone] 06/08/2022 IFIED HEARING INSTRUMENT DISPENSER * Tammi Perez MD - 06/08/2022 10:20 AM CST Internal Medicine Progress Note Patient: Kandace Cole (:1950) Room: [facility] Date of admission: 06/04/2022 No of days in hospital: 4 SUBJECTIVE: No acute events overnight. Surgical drain removed yesterday. C-collar remains in place. Pt reports episode of dizziness on standing yesterday. Improved with meclizine. Orthostatics at that time were negative. This AM, pt sitting in chair comfortably eating breakfast. Reports pain is well controlledand no further dizziness. Spasms/involuntary movements significantly improved, almost gone. Currently pending insurance authorization for SNF. OBJECTIVE: Vitals: 06/07/22 2137 06/07/22 2309 06/08/22 0401 06/08/22 0751 BP: 118/57 135/51 122/57 140/89 Pulse: 83 80 74 82 Resp: 16 16 16 16 Temp: 98.3 ??F (36.8 ??C) 98.1 ??F (36.7 ??C) 97.6 ??F (36.4 ??C) 98 ??F (36.7 ??C) SpO2: 99% 100% 100% 98% Weight: Height: Physical Exam Gen: Alert, cooperative, no distress. head lac well healing Head: Normocephalic, without obvious abnormality, atraumatic Eyes: Conjunctivae/corneas clear, EOMI Nose: Mucosa normal. No drainage. Throat: Moist mucous membranes Neck: No JVD, trachea midline. c-collar in place. Back: Symmetric, no curvature Resp: CTAB, no wheezes/rales/rhonchi CV: RRR, S1S2, No M/R/G Abd: S/NT/ND, BS+, no bruits Ext: No edema b/l LE. improvement spasms of lower extremities Pulses: 2+ DP B Skin: Skin color, texture, turgor normal. No rashes or lesions Neuro: No focal deficits LABS CBC: Recent Labs Component Name 06/08/22 0213 06/07/22 0224 06/06/22 0307 WBC 9.2 11.8* 8.5 RBC 2.64* 2.85* 2.26* HGB 7.9* 8.5* 6.7* HCT 23.9* 25.2* 20.8* BMP: Recent Labs Component Name 06/08/2221206/07/2222306/06/22306 NA 132* 130* 129* CL 97* 102 100 CO2 24 24 22 BUN 25 25 25 CREATININE 1.30* 1.26* 1.34* CALCIUM 8.4 8.8 8.9 LFTs: Recent Labs Component Name 02/16/2275602/14/22 2355 AST - 16 ALT - 13 ALKPHOS - 58 TBILI - 0.5 ALB 3.6 3.4 Magnesium: No results for input(s): MG in the last 87107 hours. Phosphorus: Recent Labs Component Name 06/08/2221206/07/2222306/06/22306 PHOS 2.5* 2.7* 3.2 Coagulation: No results for input(s): PT, INR, PTT in the last 60390 hours. Micro Microbiology Results (Displays last 21 days for this encounter ONLY) No results found for the last 504 hours. INTAKE/OUTPUT Intake/Output Summary (Last 24 hours) at 06/08/2022 1021 Last data filed at 06/08/2022 0525 Gross per 24 hour Intake 120 ml Output 800 ml Net -680 ml IMAGING: Reviewed IMPRESSION/PLAN: #Cervical myelopathy s/p intervention - S/p C5-C6 laminectomies, C4-T2 PISF by Dr. Taylor on 06/04/2022. drain removed 06/07 PLAN: - Orthopedic Surgery following, appreciate recs - Continue c-collar per Ortho - Pain control with scheduled tylenol and prn oxycodone - Bowel regiment (holding for now given multiple bowel movements) - PT/OT consulted, recommending rehab- pending insurance authorization - vitamin D supplementation #DM2 - HbA1c: 5.3 on admission - Home rx: exenatide qweek PLAN: - Will d/c accuchecks & SSI as blood sugars have been well-controlled - Diabetic Diet - D/c exenatide on d/c #HTN - Continue home coreg 6.25mg, lisinopril 20mg - Hold home lasix 10mg given hyponatremia and unclear etiology for pt being on it (no heart failurefailure or lower extremity edema) #Acute on chronic anemia, improving - Hb <7.0 today (bl 9-10). likely iron deficiency anemia + ACKD - iron 20, transferrin 162, transferrin sat 10, TIBC 203 - B12 & folic acid wnl PLAN: - Daily CBC, transfuse for Hb <7, plt<10 - IV iron 200mg for 5 days - Will benefit from outpatient colonoscopy on discharge to evaluate for etiology of anemia #RLS, improving - Possibly exacerbated by current acute on chronic anemia - Continue gabapentin 100mg TID - Anemia management as above #MDD #ARCHIE - Continue home escitalopram 20mg, buproprion 100mg BID - Continue seroquel at decreased dose of 100mg qd #CKD #BMD - vitamin D & iPTH ordered and wnl - Home calcitriol discontinued #Ferrell's Esphagus - Continue home protonix 40mg daily - Outpatient f/u with serial EGDs for monitoring #HLD - Continue home pravastatin FEN: Keep Mg~2, K~4, Phos~3 ?? Dispo: Inpatient monitoring ?? Diet: Diabetic Diet IVF: None DVT: Lovenox Code: Full Hospital Course: Ms Cole is a 72 yo female with PMHx significant for HTN, CKD, DM-2, OA, ARCHIE/MMD??admitted for elective spinal surgery. S/p C5-C6 laminectomy, C4-T2 posterior instrumented spinal fusion with Orthopedic Surgery ON 06/04. Transfer to Geriatric Medicine on 06/05 for continued management. Continuing pain control regiment. Stay c/b acute on chronic anemia. Workup showed KAIN. Given 1 unit of pRBCs and started on IV iron with improvement. Also c/b significant RLS which improved with treatment of KAIN and initiation of gabapentin. Evaluated by PT/OT who are recommending rehab- acceptance pending. ? Tammi Perez MD PGY-3 Internal Medicine IFIED HEARING INSTRUMENT DISPENSER Associated attestation - Ama Gonzalez MD - 06/08/2022 10:42 PM CERTIFIED HEARING INSTRUMENT DISPENSER I have verified the documentation of the medicine resident including all history, exam, and medicaldecision-making details. I have personally performed a physical exam and have personally reviewed the data to support my medical decision-making as outlined in the resident's note, and I arrive independently at the same conclusion. We discussed the recommendation and educated the patient at the bedside. Plan as stated in the medicine resident's note. Ama Gonzalez MD Geriatrics and Palliative Medicine Attending Date of encounter: 06/08/2022 * Joanna Easley PT - 06/08/2022 10:15 AM CST [facility] Department of Physical Medicine & Rehabilitation Progress Note Patient: Kandace Cole Med Record Number: [id number] Date of : 1950 Age: [age] year old 06/08/22 1015 Missed Visit Missed Visit Other (Comment) (Patient just back to bed. Requested therapy at later time.) IFIED HEARING INSTRUMENT DISPENSER * Charissa Murphy - 06/08/2022 9:55 AM CST Saturday Summary Note Discharge Level of Care: Rehab Discharge Destination:[facility] Phone Number: (Tracey peña) Fax Number: Insurance Auth:auth will need to be done as patient has [facility] Anticipated Mode of Transportation: to be determined (EMS) or person vehicle Contacts (Name, relationship, phone #): Anticipated DC Date: patient is ready for disposition Pending Needs: review from rehab for acceptance and authorization will need to be done. Comments: Liaison is aware of this referral and will review. DASHAWN was called by [employer] [phone] saying to call them as two rehab's have put in request ([facility] and [facility]) DASHAWN informed that [facility] has been the chosen provider and never spoke to anyone at [facility]. [employer] Equipment Mechanic with [employer] informed DASHAWN that it's currently under review. DASHAWN provided contact information for customer contact representative to call back once decision has been made. Charissa Murphy Phone [phone] 06/08/2022 IFIED HEARING INSTRUMENT DISPENSER * Heather Sethi - 06/08/2022 8:52 AM CST Internal Medicine Progress Note Patient: Kandace Cole (:1950) Room: [facility]/ Date of admission: 06/04/2022 No of days in hospital: 4 SUBJECTIVE: No acute events overnight. Pt is doing well and pleasant p/s elective spinal surgery 06/04 (C5-C6 laminectomy due to cervical myelopathy, C4-T2 posterior instrumental spinal fusion to prevent distal junctional kyphosis). Her last bm was yesterday afternoon. She denies feeling constipated. Still in C-collar, not too bothered by it. She reports improvement in her pain, rated as a 5 with a burning sensation radiating to her waistline in the back. She also reported improvement in her dizziness. Pt requested injections of cortisone in her thumbs to help with strength to hold onto objects such as herwalker. She had received cortisone injections a few years ago. Per pt, she doesn't have cartilage in her nose, making nose bleeds more likely. She endorsed having nose bleeds for the past two days. Pt feels like having Glucerna with every meal is too much and has been only drinking 1/day since yesterday. Hgb at 7.9 in AM. IV iron supplements continued. OBJECTIVE: Vitals: 06/07/22 2137 06/07/22 2309 06/08/22 0401 06/08/22 0751 BP: 118/57 135/51 122/57 140/89 Pulse: 83 80 74 82 Resp: 16 16 16 16 Temp: 98.3 ??F (36.8 ??C) 98.1 ??F (36.7 ??C) 97.6 ??F (36.4 ??C) 98 ??F (36.7 ??C) SpO2: 99% 100% 100% 98% Weight: Height: Physical Exam Gen: Alert, cooperative, no distress,3 luba in back of head, laceration well healing Head: Normocephalic, without obvious abnormality, atraumatic Eyes: Conjunctivae/corneas clear, EOMI Nose: Mucosa normal. No drainage. Throat: Moist mucous membranes Neck: No JVD, trachea midline. C-collar Back: Symmetric, no curvature Resp: CTAB, no wheezes/rales/rhonchi CV: RRR, S1S2, No M/R/G Abd: S/NT/ND, BS+, no bruits Ext: No signs of muscle spasms anymore; No edema b/l LE Pulses: 2+ DP B Skin: Skin color, texture, turgor normal. No rashes or lesions Neuro: No focal deficits LABS CBC: Recent Labs Component Name 06/08/2221206/07/2222306/06/22 030 WBC 9.2 11.8* 8.5 RBC 2.64* 2.85* 2.26* HGB 7.9* 8.5* 6.7* HCT 23.9* 25.2* 20.8* BMP: Recent Labs Component Name 06/08/2221206/07/2222306/06/22 030 NA 132* 130* 129* CL 97* 102 100 CO2 24 24 22 BUN 25 25 25 CREATININE 1.30* 1.26* 1.34* CALCIUM 8.4 8.8 8.9 LFTs: Recent Labs Component Name 02/16/227 02/14/22 2355 AST - 16 ALT - 13 ALKPHOS - 58 TBILI - 0.5 ALB 3.6 3.4 Magnesium: No results for input(s): MG in the last 46271 hours. Phosphorus: Recent Labs Component Name 06/08/2221206/07/2222306/06/22 030 PHOS 2.5* 2.7* 3.2 Coagulation: No results for input(s): PT, INR, PTT in the last 92895 hours. Micro Microbiology Results (Displays last 21 days for this encounter ONLY) No results found for the last 504 hours. INTAKE/OUTPUT Intake/Output Summary (Last 24 hours) at 06/08/2022 1103 Last data filed at 06/08/2022 0525 Gross per 24 hour Intake 120 ml Output 800 ml Net -680 ml IMAGING: XR cervical spine 06/05/22 There is grade 1 anterolisthesis of C3 on C4 measuring approximately 2 mm. There is interval posterior spinal fusion from C4 to T2. Skin luba are seen. There is limited demonstration of the severe degenerative changes of the mid and lower cervical spine as seen on CT done 02/15/2022. There is poor delineation of the lower cervical spine and upper thoracic spine in lateral projection, precluding evaluation of alignment in this region. The dens is intact and the lateral masses are normally aligned. The predental interval and the prevertebral soft tissues are normal. Diffuse osteopenia. XR thoracic spine 06/05 Awaiting IMPRESSION/PLAN: Ms. Cole is a 72 year old female with a PMH of HTN, CKD, DM2, osteoarthritis, orthostatic syncopy, depression, and Ferrell's esophagus P/S elective spinal surgery 06/04 (C5-C6 laminectomy due to cervical myelopathy, C4-T2 posterior instrumental spinal fusion to prevent distal junctional kyphosis) admitted for post-op management, with main concerns of hyponatremia and iron def anemia. #Post-op care >Continue C-collar, engage in mobile activity as able >Follow wound care protocol for dressing changes >Constipation: dose changed to Miralax 17 g PO PRN, discontinued Senna 1 tablet PO QD >Pain management: Tylenol 1000 mg q4hr PO, Oxycodone 5 mg q4hr PRN #Hyponatremia -hypotonic with serum osmolality 276 (<280) -likely SIADH 2/2 SSRI use -consider discontinuing escitalopram 20 mg PO QD >Urine osmolality 06/08 pending >Urine sodium 06/08 pending #Restless leg syndrome -Exacerbation likely due to iron def anemia -iron studies revealed low iron of 20 on 06/06 >Continue gabapentin 300 mg TID >Completed 1 dose of IV magnesium sulfate 2 g on 06/06/22 and 06/08/22 -Consult neuro if no improvement -no muscle spasms noted 06/08 #Anemia -Hgb 6.7 on 06/06/22 -iron studies revealed low iron of 20 on 06/06 -iron panel wnl -likely iron deficiency 2/2 CKD -received 1 unit of blood 06/06/22 >Continue IV iron sucrose 200 mg QD for 5 days (on day 3) -Folate and B12 blood wnl 06/06 #Dizziness -Pt noted hx of dizziness post iron transfusions >Meclizine 25 mg TID PRN #CKD #BMD #Osteoarthritis - Vit D 25-hydroxy, PTH intact w/o calcium normal -Discontinue calcitriol .25 mcg PO MWF 06/06 >Vit D3 10 mcg (800 units) PO QD >At home 2,000 units PO QD #DM2 -Hemoglobin A1C: 5.1 on 02/16/22 -Hemoglobin A1C: 5.3 on 06/07/22 -lower than target of 7-7.5 >Sliding scale insulin -Consider discontinuing at home subcutanous injections of 2mg Exenatide once a week -HA1C is lower than target, and hypoglycemia could contribute to falls #Ferrell's esophagus >Continue Protonix 40 mg PO QD -F/u outpt EGDs for monitoring #HTN >Continue carvedilol 6.25 mg BID PO >Continue lisinopril 20 mg PO QD -Hold Lasix 10 mg PO QD due to hyponatremia #Hyperlipidemia >Continue pravastatin 40 mg PO at bedtime #Depression >Continue bupropion (wellbutrin) 100 mg BID PO >Consider discontinuing escitalopram 20 mg PO QD -Adminstered quetiapine 50 mg PO at nighttime 06/07 >Administer quetiapine 100 mg PO QD in evening beginning 06/08 FEN: Keep Mg~2, K~4, Phos~3 ?? Dispo: Inpatient monitoring, pending rehab placement Diet: Diabetic diet, Glucerna supplements with meals IVF: PIV x2 DVT: Mechanical Code: Full Hospital Course: Ms. Cole is a 72 year old female with a PMH of HTN, CKD, DM2, osteoarthritis, orthostatic syncope, and Ferrell's esophagus who had elective spinal surgery on 06/04 (C5-C6 laminectomy due to cervical myelopathy, C4-T2 posterior instrumental spinal fusion to prevent distal junctional kyphosis). She tolerated the surgery well. She lost 225 mL of blood, and she received 500 ml of 5% albumin. She was m charles to the LENNIE team morning of 06/05 for management post-op. She was found to have a low hemoglobin on 2 CBCs (low of Hgb 7.0) which likely worsened her restless leg syndrome. Iron studies 06/06 showed iron def. Folate/B12 blood test, Vit D 25-hydroxy, and PTH intact w/o calcium for wnl 06/06. Pt received 1 unit of blood and IV iron 06/06. Pt continues to receive IV iron. PT/OT recommends rehab. Placement pending. PT is HDS. Heather Sethi MS3 Internal Medicine IFIED HEARING INSTRUMENT DISPENSER Associated attestation - Ama Gonzalez MD - 06/08/2022 7:11 PM CERTIFIED HEARING INSTRUMENT DISPENSER I have verified the documentation of the medical student. This note is for educational purposes only. Please refer to the resident's note for complete note for details and my assessment. Ama Gonzalez MD 06/08/2022 * Joey Dickens MD - 06/08/2022 5:50 AM CST [facility] Orthopedic Spine Surgery Daily Progress Note Kandace Cole, 72 year old, female : 1950 CSN: [id number] Primary Care Physician: Karrie Phillips MD, MD - Admission Date/Time: 06/04/2022 5:08 AM - Hospital Day: 4 Subjective Patient seen and examined this AM on rounds. No acute orthopaedic events overnight, pain controlled. Denies new numbness/paresthesias. Legs continue to improve Vitals Temp (24hrs), Av.7 ??F (36.5 ??C), Min:97.3 ??F (36.3 ??C), Max:98.3 ??F (36.8 ??C) BP 122/57 Pulse 74 Temp 97.6 ??F (36.4 ??C) (Oral) Resp 16 Ht 1.549 m (5' 1 ) Wt 60.5 kg (133 lb 6.4 oz) SpO2 100% Labs Recent Labs Component Name 06/08/2221206/07/2222306/06/22 0307 WBC 9.2 11.8* 8.5 HGB 7.9* 8.5* 6.7* HCT 23.9* 25.2* 20.8* PLTCOUNT 287 291 254 Recent Labs Component Name 06/08/2221206/07/22 02206/06/22 0307 NA 132* 130* 129* POTASSIUM 5.4* 5.3* 4.6* CL 97* 102 100 CO2 24 24 22 BUN 25 25 25 CREATININE 1.30* 1.26* 1.34* GLUCOSE 97 121* 112 Recent Labs Component Name 06/08/22 0213 06/07/22 0224 06/06/22 0307 MAGNESIUM 1.7 2.1 1.6 PHOS 2.5* 2.7* 3.2 No results for input(s): PT, INR in the last 19652 hours. No results for input(s): PTT in the last 37745 hours. Cultures No results found for this or any previous visit (from the past 248 hour(s)). Physical Exam General: Awake, alert, follows commands, in no acute distress Neck: - C-collar/[place] J: Present - Tenderness to palpation: Deferred - ROM: Deferred - HV drain in place - Dressing clean, dry, and intact Drain output (24 hours, last shift): 80, 30 Bilateral Upper Extremity: - Motor: Right Left Shoulder Abduction 5/5 5/5 Elbow Extension 5/5 5/5 Elbow Flexion 5/5 5/5 Wrist Extension 5/5 5/5 Wrist Flexion 5/5 5/5 Finger Flexion 5/5 5/5 Finger Abduction 5/5 5/5 - Sensory: Intact to light touch distally Bilateral Lower Extremity: - Motor: Right Left Hip Flexion 5/5 5/5 Knee Flexion 5/5 5/5 Knee Extension 5/5 5/5 Ankle Dorsiflexion 5/5 5/5 Great Toe Extension 5/5 5/5 Ankle Plantarflexion 5/5 5/5 - Sensation: Intact to light touch distally Assessment/Plan Kandace Cole is a 72 year old female with cervical myelopathy - s/p C5-C6 laminectomies, C4-T2 PISF by Dr. Taylor on 06/04/2022 ??? Activity: Activity as tolerated in C-collar ??? Drain removed yesterday (06/07) ??? PT/OT daily ??? Anticoagulation: SCDs, ambulation ??? Recommend pain control and bowel regimen ??? Antibiotics: periop ancef completed ??? Wound care: PRN ??? Diet: OK from Ortho standpoint ??? Current Dispo: PT/OT recommending rehab ??? Please page Ortho Spine with any questions or concerns Joey Dickens MD 06/08/2022 5:50 AM IFIED HEARING INSTRUMENT DISPENSER * Vivian Boo RN - 06/07/2022 10:43 PM CST Problem: Pain/Discomfort Goal: Patient exhibits reduced pain/discomfort as evidenced by pain scores Outcome: Progressing Goal: Patient uses pharmacological and non-pharmacological pain management strategies. Outcome: Adequate for Discharge Goal: Patient verbalizes acceptable level of pain relief and ability to engage in desired activity. Outcome: Adequate for Discharge Problem: Ineffective breathing pattern related to obstructive sleep apnea Goal: Maintains optimal sleep pattern, as evidenced by relaxed breathing at normal rate and depth. Outcome: Progressing IFIED HEARING INSTRUMENT DISPENSER * Ama Gonzalez MD - 06/07/2022 10:38 PM CST GERIATRIC MEDICINE ATTENDING PROGRESS NOTE Admit Date: 06/04/2022 Hospital day : 3 Summary / hospital course: Mrs Cole is a 72 year old??female who lives at home with the grandson,independent for ADLs and most IADLS (limited by pain), has CKD, anemia, htn, OA,??DM2 controlled (A1c 5.1 06/06/22), glaucoma, restless leg syndrome, prior admissions with dizziness with evidence of orthostatic hypotension and hyponatremia, frequent falls and polypharmacy, who was admitted to [facility] spine 06/04 for a planned cervical-thoracic posterior fusion with laminectomies for cervical myelopathy. The procedure was on 06/04/22 without complications, she continues to feel better and with less weakness has been working with PT/OT, still with the drain with hematogenous fluid. Had increased movement in her legs in the setting of acute on chronic anemia, 06/06 with Hb of 6/8 and transfused and started on IV iron. She states she has been on iron in the past with no effect to oral presentation, dueto decreased absorption and has received IV iron in the past, but not in the recent years. ??Iron panel confirms iron deficiency anemia, which per her report is chronic and no associated with known GIB. She is already on gabapentin, acetaminophen and PRN oxy for the pain. Sodium is mildly low and potassium mildly elevated but BP is normal, adrenal insuffiency is unlikely. This was considered in one of her admissions for dizziness and falls. She is on multiple antidepressants and high dose of que tiapine which can be also adding to the falls, and with the SSRI the hyponatremia. She states also hyponatremia has been chronic and they wanted to start her on salt pills at some point. Could be SIADH with low serum osm,still pending urine lytes this admission, last time measured on 01/2022 she had high urine osm and elevated sodium in urine, compatible with SIADH, possible from NSRI, will discuss with her option of discontinuing but her mood appears controlled. Also at home on hypoglycemic medications for DM despite her a1c of 5.1, all medications for diabetes will be discontinued at discharge as hypoglycemia can also be adding to the falls. No evidence of orthostatic hypotension this admission but now complaining again of dizziness, although states she gets like this after blood or iron transfusions, asked to have the antivert restarted. Dren from surgery removed today. Plan to discharge to acute rehab per PT/OT recommendations. Subjective / Review of Systems: Feeling better, adequate appetite, tolerating PO, no dysphagia, feels dizzy Multiple BM after adjusting bowel regimen yesterday No fever or chills Pain is better controlled No CP, no palpitations No SOB, no cough No abdominal pain, no distention, no nausea, no emesis, positive BM Positive diuresis without pain No lower extremity edema No skin rashes Adequate sleep, mood is fine without changes. Current Facility-Administered Medications Medication Dose Route Frequency Provider Last Rate Last Admin ??? 0.9% NaCl injection 3 mL 3 mL Intracatheter q8h Joey Dickens MD 3 mL at 06/07/222021 And ??? 0.9% NaCl injection 1-10 mL 1-10 mL Intracatheter PRN Joey Dickens MD ??? acetaminophen (Tylenol) tablet 1,000 mg 1,000 mg Oral TID Tammi Perez MD 1,000 mg at 06/07/222019 ??? buPROPion SR 12hr (Wellbutrin-SR) tablet 100 mg 100 mg Oral BID Padma Morales MD 100 mg at 06/07/222019 ??? carvedilol (Coreg) tablet 6.25 mg 6.25 mg Oral BID Padma Morales MD 6.25 mg at 06/07/222019 ??? dextrose 10 % IV bolus 12.5 g Intravenous PRN Padma Morales MD Or ??? dextrose 10 % IV bolus 25 g Intravenous PRN Padma Morales MD ??? escitalopram (Lexapro) tablet 20 mg 20 mg Oral QDAY Padma Morales MD 20 mg at 06/07/22 0842 ??? gabapentin (Neurontin) capsule 300 mg 300 mg Oral TID Joey Dickens MD 300 mg at 06/07/22 2020 ??? glucagon (Glucagen) injection 1 mg 1 mg Subcutaneous PRN Padma Morales MD ??? glucose (Diabetic Use) (Dex4 Glucose) oral liquid Oral PRN Padma Morales MD ??? glucose (Diabetic Use) oral gel Oral PRN Padma Morales MD ??? glucose chew tablet 4 tablet 16 g Oral PRN Padma Morales MD ??? insulin lispro (HumaLOG;ADMelog) 100 UNIT/ML pen 0-6 Units 0-6 Units Subcutaneous TID WC Padma Morales MD 1 Units at 06/07/22 1210 ??? iron sucrose (Venofer) injection 200 mg 200 mg Intravenous QDAY Tammi Perez MD 200 mg at 06/07/22 0842 ??? latanoprost (Xalatan) 0.005 % ophthalmic solution 1 drop 1 drop Each Eye AT BEDTIME Padma Morales MD 1 drop at 06/07/222021 ??? lisinopril (Prinivil; Zestril) tablet 20 mg 20 mg Oral QDAY Padma Morales MD 20 mg at 06/07/22 0841 ??? meclizine (Antivert) tablet 25 mg 25 mg Oral TID PRN Tammi Perez MD 25 mg at 06/07/22 1357 ??? ondansetron (Zofran) injection 4 mg 4 mg Intravenous q6h PRN Clay Lim MD 4 mg at 06/06/222025 ??? oxyCODONE (immediate release) (Roxicodone) tablet 5 mg 5 mg Oral q4h PRN Tammi Perez MD 5 mg at 06/06/22 2027 ??? pantoprazole EC (Protonix) tablet 40 mg 40 mg Oral QDAY Padma Morales MD 40 mg at 06/07/22 0841 ??? polyethylene glycol 3350 (Miralax) packet 17 g 17 g Oral QDAY PRN Tammi Perez MD ??? pravastatin (Pravachol) tablet 40 mg 40 mg Oral AT BEDTIME Padma Morales MD 40 mg at 06/07/222019 ??? [START ON 06/08/2022] QUEtiapine (SEROquel) tablet 100 mg 100 mg Oral QPM Tammi Perez MD ??? saline nasal spray ([place]; [place]) 0.65 % nasal spray 2 spray 2 spray Each Nostril q1h PRN Tammi Perez MD ??? [START ON 06/08/2022] senna-docusate (Senokot-S) tablet 1 tablet 1 tablet Oral QDAY Tammi Perez MD Objective: Patient Vitals for the past 8 hrs: BP Temp Temp src Pulse Resp SpO2 06/07/22 2137 118/57 98.3 ??F (36.8 ??C) Oral 83 16 99 % 06/07/222022 128/52 -- -- 86 -- -- 06/07/22 1616 109/76 97.3 ??F (36.3 ??C) Oral 75 15 99 % Intake/Output Summary (Last 24 hours) at 06/07/20229 Last data filed at 06/07/2022 1014 Gross per 24 hour Intake 360 ml Output 75 ml Net 285 ml General: alert, pleasant, not in distress, not in apparent pain HEENT moist mucous membranes, no mouth lesions, symmetrical pupils Supple neck, no JVD, cervical collar in place Chest without external lesions, no pain to palpation. RRR with no murmurs, symmetrical respiratory sounds, no wheezing/crackles or rales Abdomen soft, non distended, non tender, no masses, positive bowel sounds Extremities: no LE edema, symmetrical pulses, no tenderness to palpation Skin: dry, no lesions Neuro: alert, partially oriented, reponds to questions appropriately, attention preserved, moves 4 extremities, no abnormal movements, attention preserved , gait not evaluated, decreased involuntary movoments in legs compared to yesterday Mood stable, not depressed Results in the last 24 hours remarkable for No results for input(s): PT, INR, APTT in the last 56975 hours. Recent Labs Component Name 03/09/23 0224 06/06/22 0307 06/05/22 1232 06/05/22 0458 05/15/22 1352 WBC 11.8* 8.5 10.0 10.4 6.6 HGB 8.5* 6.7* 7.0* 7.1* 9.9* MCV 88.4 92.0 90.5 91.7 91.0 Recent Labs Component Name 06/07/22 0224 06/06/22 0307 06/05/22 0458 NA 130* 129* 132* CL 102 100 103 CO2 24 22 19* BUN 25 25 27* CREATININE 1.26* 1.34* 1.40* Recent Labs Component Name 02/16/2275602/14/22 2355 AST - 16 ALT - 13 ALKPHOS - 58 TBILI - 0.5 ALB 3.6 3.4 Images: no new images Plan ?? #cervical myelopathy s/p C5-C6 laminectomies Continue C-collar, engage in mobile activity as tolerated wound care protocol for dressing changes Pain management: Tylenol 1000 mg q4hr PO, Oxycodone 5 mg q4hr PRN #Constipation resolved Hold bowel regimen today Tomorrow Miralax 17 g PO PRN Will restart Senna 1 tablet PO QD once BM are adequate ?? #Restless leg syndrome -Exacerbation likely due to iron def anemia Continue gabapentin 300 mg TID received 1 dose of magnesium sulfate 2 g 06/06/22 Continue gabapentin 300mg TID ?? #Anemia, improved after transfusion 06/06 Continue IV iron sucrose 200 mg QD for 5 days (on day 2) ?? #Hyponatremia Likely SIADH Will evaluate with her stopping NSRI vs adding sodium tablets, as her depression is controlled ?? #Dizziness She has requested Meclizine 25 mg TID PRN although likely ineffective ?? #CKD #BMD #Osteoarthritis -Discontinue calcitriol .25 mcg PO MWF 06/06 Continue vitamin D At home 2,000 units PO QD ?? #DM2 (A1c below target) >Sliding scale insulin -discontinue home subcutanous injections of 2mg Exenatide once a week ?? #Ferrell's esophagus Continue Protonix 40 mg PO QD ?? #HTN Monitor orthostatics Continue carvedilol 6.25 mg BID PO Continue lisinopril 20 mg PO QD -Hold Lasix 10 mg PO QD due to hyponatremia ?? #Hyperlipidemia Continue pravastatin 40 mg PO at bedtime ?? #Depression Continue bupropion (wellbutrin) 100 mg BID PO Continue escitalopram 20 mg PO QD will discuss discontinuation with the patient [place] quetiapine 50 mg PO at nighttime 06/07 Administer quetiapine 100 mg PO QD in evening beginning 06/08 (to change dose from the morning to the evening) ?? FEN: Keep Mg~2, K~4, Phos~3 ?? Dispo: Inpatient monitoring, PT/OT recommends rehab Diet: Diabetic diet, Glucerna supplements with meals IVF: PIV x2 DVT: Mechanical Code: Full ?? Ama Gonzalez MD Geriatric and Palliative Medicine Attending 06/07/2022 10:39 PM IFIED HEARING INSTRUMENT DISPENSER * Makenzie Choi RN - 06/07/2022 6:28 PM CST Problem: Pain/Discomfort Goal: Patient exhibits reduced pain/discomfort as evidenced by pain scores Outcome: Progressing Goal: Patient uses pharmacological and non-pharmacological pain management strategies. Outcome: Progressing Goal: Patient verbalizes acceptable level of pain relief and ability to engage in desired activity. Outcome: Progressing Problem: Fall Risk Goal: Fall risk and fall related injury risk are minimized (interventions related to the fall risk can be found in the flowsheet documentation) Outcome: Progressing Problem: Ineffective breathing pattern related to obstructive sleep apnea Goal: Maintains optimal sleep pattern, as evidenced by relaxed breathing at normal rate and depth. Outcome: Progressing Goal: Adheres to CPAP (Continuous Positive Airway Pressure) device regimen as prescribed. Outcome: Progressing Problem: Sleep deprivation related to sleep apnea. Goal: Achieves restful, refreshing sleep pattern. Outcome: Progressing Problem: Nutrient: Increased nutrient needs (specify) Goal: Total intake will meet estimated nutrient needs Outcome: Progressing Problem: Grooming Goal: LTG - Patient will complete daily grooming tasks Outcome: Progressing Problem: Balance Goal: LTG - Patient will maintain balance to allow for safe mobility Outcome: Progressing IFIED HEARING INSTRUMENT DISPENSER * Daniella Le PT - 06/07/2022 2:30 PM CST [facility] Physical Medicine and Rehabilitation Physical Therapy Progress Note Patient: Kandace Cole [facility] Record Number: [id number] Date of : 1950 Age: [age] year old PPE worn by staff: gloves;mask - procedural PPE worn by patient: gown - patient, clean;socks - clean Recommendations: Discharge PT Discharge Recommendations: Patient would benefit from intensive 3-hour multidisciplinary therapy This recommendation is made due to ongoing intensive PT functional needs: ability to actively participate in intensive therapy 3 hours/day, 5 days a week;patient has the need for more than one skilled therapy service;motivated to participate in therapy SUBJECTIVE: Subjective: I am feeling dizzy today, so can we do less walking right now? Pain Assessment: Pain Location #1 Pain Scale/Observation: Numeric (0-10) Pain Rating Score #1: 2 Sedation Level #1: 1-Awake and alert Pain Location : Back;Neck Pain Orientation: Posterior Relieved By: Position Non-pharmacological interventions: Rest;Reposition;Emotional Support PRECAUTIONS: Weight Bearing Status: (no restrictions) Activity Level: Activity as Tolerated (in C-collar) Spine Precautions: Yes Spine Precautions: [place] OBJECTIVE: At start of therapy session, patient found in bed and with no alarm General Appearance: In bed resting in NAD. LDAs: IV's: Peripheral line Vitals: (*Assess the 3 levels of oxygen saturations both for room air and 02 unless rest on room air is 88% or less). Rest BP: 120/53 HR: 65 Sp02 Sp02 94% Room Air L O2 RA Ex/Gait/Activity Without 02 BP: 136/57 HR: Sp02 Room Air Ex/Gait/Activity With 02 BP: HR: Sp02 L O2 Post Activity BP: HR: Sp02 Sp02 L O2 Room Air Observations: Vitals monitored throughout session. Pt without any SOB, dizziness, or signs/symptomsof distress. Mental Status/Cognition: Level of Consciousness-Adult: Alert Orientation Level: Oriented X4 Cognition: Follows Commands-Consistent Attention Span: Appears intact Memory: Appears intact Following Commands: Follows all commands and directions without difficulty Safety Judgement: Decreased awareness of need for safety Awareness of Errors: Decreased awareness of deficits Mobility: A gait belt and non-slip socks were used for all out of bed activity this date. Bed Mobility: Rolling: Minimum Assistance to Left Supine to Sit: Minimal Assistance with HOB flat Sit to Supine: Minimal Assistance Transfers: Sit to Stand: Minimal Assistance Stand to Sit: Minimal Assistance Bed to Chair: Activity Does Not Occur Transfer Device: Gait belt Gait: Weight Bearing Status: (no restrictions) Distance Ambulated: 0 FEET Comments: Pt sits EOB with min a needed at first to assist with balance. Pt demos increased posterior lean at times, especially when performing exercises. Cues needed for shoulders over hips, tactilecues/assist needed to perform. Pt partially stands to scoot to HOB. Returns to bed with min A for LEs. Balance: Balance Scales/Tests Used: Sitting: Static/Dynamic;Standing: Static/Dynamic Sitting - Static: Good - Sitting - Dynamic: Fair +;Fair Standing - Static: Fair;Fair - Standing - Dynamic: Not tested ACTIVITY TOLERANCE: Patient's activity tolerance: fair TREATMENT/INTERVENTIONS: ROM, strengthening exercises, bed mobility training, transfer training, balance activities, monitoring of vitals and cognitive stimulation Pt performs seated gentle shoulder rolls, seated marches, knee extension/flexion, and ankle DF. Pt also works on seated balance, holding self in midline and avoiding posterior lean. EDUCATION: While performing PT, Patient was instructed in:functional mobility training, energy conservation, safety awareness/fall precautions , home exercise program, pursed lip breathing techniques, spine precautions , discharge planning, use of call light Presented to patient who demonstrates Good understanding of instructions given. ASSESSMENT: Patient would benefit from additional Physical Therapy sessions to achieve the following functionalgoals to enhance independence. Short Term Goals: Patient will perform bed mobility with minimal assist Patient will transfer sit to/from stand with stand by assist Patient will transfer bed to/from chair with stand by assist Patient will ambulate 75 feet with minimal assist and appropriate AD Half-Way Goal(s): Patient to discharge to appropriate next level of inpatient care. INFORMED CONSENT TO TREATMENT: Plan of care including recommended therapy, goals and frequency, discussed with patient who understands and agrees to proceed. Equipment Issued: none Plan: Patient continues to benefit from skilled therapy services., Continue with goals as established. If patient is discharged from the facility, this note serves as a discharge summary if further physical therapy visits did not occur. Refer to filed flowsheet for further details. Following therapy session, patient left in bed, with bed alarm on , with call light within reach. IFIED HEARING INSTRUMENT DISPENSER * Sherrie Boyer, OT - 06/07/2022 1:48 PM CST [facility] Physical Medicine and Rehabilitation Occupational Therapy Progress Note Patient: Kandace Cole Med Record Number: [id number] Date of : 1950 Age: [age] year old PPE worn by staff: gloves;mask - procedural PPE worn by patient: gown - patient, clean;socks - clean Tech: none Recommendations: Discharge OT Discharge Recommendations: Patient would benefit from intensive 3-hour multidisciplinary therapy This recommendation is made due to ongoing intensive OT functional needs: motivated to participate in therapy;not at baseline due to impaired ability to complete ADL's;patient has the ability to progress and demonstrate measurable gains as a result of skilled therapy Recommended Transportation Method: Private Car Nurse contacted regarding patient status and/or discharge plan. Activity Level: as tolerated PRECAUTIONS: Weight Bearing Status: Lower Extremity;Upper Extremity (no restrictions) Spine Precautions: Range of motion;Log rolling;No bending,lifting, no twisting (AAT in C-Collar) SUBJECTIVE: Subjective: Pt agreeable to therapy; pleasant and [facility] Pain Assessment: Pain Location #1 Pain Scale/Observation: Numeric (0-10) Pain Rating Score #1: 0 Sedation Level #1: 1-Awake and alert OBJECTIVE: At start of therapy session, patient found in bed General Appearance: 72 y/o female received in NAD LDA: IV's: Peripheral line and C-collar Vitals: (*Assess the 3 levels of oxygen saturations both for room air and 02 unless rest on room air is 88% or less). Rest BP: 106/48 HR: 79 Sp02 Sp02 96% Room Air L O2 RA Seated EOB Without 02 BP: 94/61 HR: Sp02 Room Air Post Activity BP: 105/59 HR: Sp02 Sp02 L O2 Room Air Observations: Pt reports dizziness/lightheadness intermittently throughout tx, particularly immediately following postural transition. Pt instructed in utilizing a fixed gaze and ankle pumps to decrease dizziness with moderate success. RN notified of BP drop seated EOB. Mental Status/Cognition: Level of Consciousness-Adult: Alert Orientation Level: Oriented X4 Cognition: Follows Commands-Consistent Attention Span: Appears intact Memory: Appears intact Following Commands: Follows two or three step commands Safety Judgement: Decreased awareness of need for safety Awareness of Errors: Decreased awareness of deficits Problem Solving: Assistance required to identify errors made Mobility: a gait belt and non-slip socks were used for all out of bed activity this date. Bed Mobility: Rolling: Activity Does Not Occur Supine to Sit: Minimal Assistance;Requires Verbal Cues for Technique (cues for log roll with fair return demo) with HOB in semi-fowlers position Sit to Supine: Activity Does Not Occur Transfers: Sit to Stand: Minimal Assistance Stand to Sit: Minimal Assistance Chair to Bed: Activity Does Not Occur Bed to Chair: Minimal Assistance to Right;Requires Verbal Cues for Technique Transfer Device: Gait belt;Walker-2 Wheeled Functional Ambulation: Functional mobility of ambulation to sink/bathroom with minimal assist using wheeled walker. Balance: Sitting - Static: Good Sitting - Dynamic: Good - Standing - Static: Fair;With Both Upper Extremity's Support Standing - Dynamic: Fair;With Both Upper Extremity's Support Activities of Daily Living: Feeding: Activity Does Not Occur Oral Facial Hygiene: Stand By Assist (oral hygiene standing at sink) Bathing: Activity Does Not Occur Upper Body Dressing: Minimal Assistance (don pajama shirt seated EOB; pt demonstrates decreased FMC/strength interfering with effective management of clothing fasteners) Lower Body Dressing: Minimal Assistance (don undergarments and pajama pants) Toileting: Activity Does Not Occur Splint Issued/Checked: none ACTIVITY TOLERANCE: Patient's activity tolerance: fair. TREATMENT/INTERVENTIONS: ADL training Adaptive equipment training Functional transfer training Endurance training Bed mobility Safety awareness EDUCATION: While performing OT, Patient was instructed in:functional mobility training, self-care training, energy conservation, safety awareness/fall precautions , use of adaptive equipment, discharge planning, use of call light Presented to patient who demonstrates Fair understanding of instructions given. INFORMED CONSENT TO TREATMENT: Plan of care including recommended therapy, goals and frequency, discussed with patient who understands and agrees to proceed. ASSESSMENT: Patient continues to benefit from skilled Occupational Therapy to achieve the following functional goals. Short Term Goals: Goal Formation With patient Patient will perform grooming standing at sink and with standby assist Patient will perform upper extremity dressing with modified independence Patient will perform lower extremity dressing with modified independence Patient will transfer to standard toilet with stand by assist Patient will perform supine to/from sit with stand by assist Patient will perform bed to chair with stand by assist ?? Half-Way Goal(s): Patient to discharge to appropriate next level of inpatient care. Plan: Patient continues to benefit from skilled therapy services., Continue with goals as established. If patient is discharged from the facility, this note serves as a discharge summary if further occupational therapy visits did not occur. Refer to filed flowsheet for further details. Following therapy session, patient left in patient bedside chair, with chair alarm on, with call light within reach, with RN, Migdalia aware. IFIED HEARING INSTRUMENT DISPENSER * Charissa Murphy - 06/07/2022 10:43 AM CST DASHAWN rec'd call from Breezy Keith) to say Cadence will be here to assess patient. If patient isin agreement to going, auth will be initiated. SW to wait for liaison to come and patient to make determination on rehab choice. ISELA Hensley Care Coordination Summer Nanny IFIED HEARING INSTRUMENT DISPENSER * Heather Sethi - 06/07/2022 10:12 AM CST Internal Medicine Progress Note Patient: Kandace Cole (:1950) Room: [facility] Date of admission: 06/04/2022 No of days in hospital: 3 SUBJECTIVE: No acute events overnight. Pt is doing well and pleasant p/s elective spinal surgery 06/04 (C5-C6 laminectomy due to cervical myelopathy, C4-T2 posterior instrumental spinal fusion to prevent distal junctional kyphosis). She reported having 6 bowel movements and 2 episodes of vomiting. She felt better after vomiting. Still in C-collar, not too bothered by it. She reports improvement in her restlessleg syndrome and her pain. Hgb improved to 8.5 in AM. IV iron supplements continued. Drain removed today. OBJECTIVE: Vitals: 06/06/22 2259 06/07/22 0253 06/07/22 0800 06/07/22 1146 BP: 148/51 128/51 132/58 113/58 Pulse: 80 72 108 75 Resp: 18 18 16 14 Temp: 97.4 ??F (36.3 ??C) 97.9 ??F (36.6 ??C) 97.4 ??F (36.3 ??C) 97.3 ??F (36.3 ??C) SpO2: 100% 97% 95% 100% Weight: Height: Physical Exam Gen: Alert, cooperative, no distress,3 luba in back of head, laceration well healing Head: Normocephalic, without obvious abnormality, atraumatic Eyes: Conjunctivae/corneas clear, EOMI Nose: Mucosa normal. No drainage. Throat: Moist mucous membranes Neck: No JVD, trachea midline. C-collar Back: Symmetric, no curvature Resp: CTAB, no wheezes/rales/rhonchi CV: RRR, S1S2, No M/R/G Abd: S/NT/ND, BS+, no bruits Ext: Very minimal leg movements due to restless leg syndrome, improved; No edema b/l LE Pulses: 2+ DP B Skin: Skin color, texture, turgor normal. No rashes or lesions Neuro: No focal deficits LABS CBC: Recent Labs Component Name 06/07/2222306/06/2230606/05/22 1232 WBC 11.8* 8.5 10.0 RBC 2.85* 2.26* 2.31* HGB 8.5* 6.7* 7.0* HCT 25.2* 20.8* 20.9* BMP: Recent Labs Component Name 06/07/2222306/06/2230606/05/22 0458 NA 130* 129* 132* CL 102 100 103 CO2 24 22 19* BUN 25 25 27* CREATININE 1.26* 1.34* 1.40* CALCIUM 8.8 8.9 8.5 LFTs: Recent Labs Component Name 02/16/2275602/14/22 2355 AST - 16 ALT - 13 ALKPHOS - 58 TBILI - 0.5 ALB 3.6 3.4 Magnesium: No results for input(s): MG in the last 61482 hours. Phosphorus: Recent Labs Component Name 06/07/2222306/06/2230602/16/22 0757 PHOS 2.7* 3.2 3.9 Coagulation: No results for input(s): PT, INR, PTT in the last 57554 hours. Micro Microbiology Results (Displays last 21 days for this encounter ONLY) No results found for the last 504 hours. INTAKE/OUTPUT Intake/Output Summary (Last 24 hours) at 06/07/2022 1520 Last data filed at 06/07/2022 1014 Gross per 24 hour Intake 520 ml Output 475 ml Net 45 ml IMAGING: XR cervical spine 06/05/22 There is grade 1 anterolisthesis of C3 on C4 measuring approximately 2 mm. There is interval posterior spinal fusion from C4 to T2. Skin luba are seen. There is limited demonstration of the severe degenerative changes of the mid and lower cervical spine as seen on CT done 02/15/2022. There is poor delineation of the lower cervical spine and upper thoracic spine in lateral projection, precluding evaluation of alignment in this region. The dens is intact and the lateral masses are normally aligned. The predental interval and the prevertebral soft tissues are normal. Diffuse osteopenia. XR thoracic spine 06/05 Awaiting IMPRESSION/PLAN: Ms. Cole is a 72 year old female with a PMH of HTN, CKD, DM2, osteoarthritis, orthostatic syncopy, depression, and Ferrell's esophagus P/S elective spinal surgery 06/04 (C5-C6 laminectomy due to cervical myelopathy, C4-T2 posterior instrumental spinal fusion to prevent distal junctional kyphosis) admitted for post-op management. #Post-op care >Continue C-collar, engage in mobile activity as able >Follow wound care protocol for dressing changes >Constipation: dose changed to Miralax 17 g PO PRN, Senna 1 tablet PO QD >Pain management: Tylenol 1000 mg q4hr PO, Oxycodone 5 mg q4hr PRN #Restless leg syndrome -Exacerbation likely due to iron def anemia -iron studies revealed low iron of 20 on 06/06 >Continue gabapentin 300 mg TID -received 1 dose of magnesium sulfate 2 g 06/06/22 -Consult neuro if no improvement #Anemia -Hgb 6.7 on 06/06/22 -iron studies revealed low iron of 20 on 06/06 -iron panel wnl -likely iron deficiency 2/2 CKD -received 1 unit of blood 06/06/22 >Continue IV iron sucrose 200 mg QD for 5 days (on day 2) -Folate and B12 blood wnl 06/06 #Hyponatremia -hypotonic with serum osmolality 276 (<280) >Urine osmolality >Urine sodium #Dizziness >Meclizine 25 mg TID PRN #CKD #BMD #Osteoarthritis - Vit D 25-hydroxy, PTH intact w/o calcium normal -Discontinue calcitriol .25 mcg PO MWF 06/06 >At home 2,000 units PO QD #DM2 -Hemoglobin A1C: 5.1 on 02/16/22 -Hemoglobin A1C: 5.3 on 06/07/22 >Sliding scale insulin -hold at home subcutanous injections of 2mg Exenatide once a week #Ferrell's esophagus >Continue Protonix 40 mg PO QD -F/u outpt EGDs for monitoring #HTN >Continue carvedilol 6.25 mg BID PO >Continue lisinopril 20 mg PO QD -Hold Lasix 10 mg PO QD due to hyponatremia #Hyperlipidemia >Continue pravastatin 40 mg PO at bedtime #Depression >Continue bupropion (wellbutrin) 100 mg BID PO >Continue escitalopram 20 mg PO QD >[place] quetiapine 50 mg PO at nighttime 06/07 >Administer quetiapine 100 mg PO QD in evening beginning 06/08 FEN: Keep Mg~2, K~4, Phos~3 ?? Dispo: Inpatient monitoring, PT/OT recommends rehab Diet: Diabetic diet, Glucerna supplements with meals IVF: PIV x2 DVT: Mechanical Code: Full Hospital Course: Ms. Cole is a 72 year old female with a PMH of HTN, CKD, DM2, osteoarthritis, orthostatic syncope, and Ferrell's esophagus who had elective spinal surgery on 06/04 (C5-C6 laminectomy due to cervical myelopathy, C4-T2 posterior instrumental spinal fusion to prevent distal junctional kyphosis). She tolerated the surgery well. She lost 225 mL of blood, and she received 500 ml of 5% albumin. She was m charles to the [facility] team morning of 06/05 for management post-op. She was found to have a low hemoglobin on 2 CBCs (low of Hgb 7.0) which likely worsened her restless leg syndrome. Iron studies 06/06 showed iron def. Folate/B12 blood test, Vit D 25-hydroxy, and PTH intact w/o calcium for wnl 06/06. Pt received 1 unit of blood and IV iron 06/06. Pt continues to receive IV iron. PT/OT recommends rehab. Placement pending. PT is HDS. Haether Sethi MS3 Internal Medicine IFIED HEARING INSTRUMENT DISPENSER Associated attestation - Ama Gonzalez MD - 06/07/2022 10:37 PM CERTIFIED HEARING INSTRUMENT DISPENSER I have verified the documentation of the medical student. This note is for educational purposes only. Please refer to the resident's note for complete note for details and my assessment. Ama Gonzalez MD 06/07/2022 * Joey Dickens MD - 06/07/2022 5:31 AM CST [facility]opedic Spine Surgery Daily Progress Note Kandace Cole, 72 year old, female : 1950 CSN: [id number] Primary Care Physician: Karrie Phillips MD, MD - Admission Date/Time: 06/04/2022 5:08 AM - Hospital Day: 3 Subjective Patient seen and examined this AM on rounds. No acute orthopaedic events overnight, pain controlled. Denies new numbness/paresthesias. Legs feeling much better today. Repeat hgb 8.5 Vitals Temp (24hrs), Av.9 ??F (36.6 ??C), Min:97.4 ??F (36.3 ??C), Max:98.2 ??F (36.8 ??C) BP 128/51 Pulse 72 Temp 97.9 ??F (36.6 ??C) (Oral) Resp 18 Ht 1.549 m (5' 1 ) Wt 60.5 kg (133 lb 6.4 oz) SpO2 97% Labs Recent Labs Component Name 06/07/22 0224 06/06/22 0307 06/05/22 1232 WBC 11.8* 8.5 10.0 HGB 8.5* 6.7* 7.0* HCT 25.2* 20.8* 20.9* PLTCOUNT 291 254 259 Recent Labs Component Name 06/07/22 0224 06/06/22 0307 06/05/22 0458 NA 130* 129* 132* POTASSIUM 5.3* 4.6* 5.2* CL 102 100 103 CO2 24 22 19* BUN 25 25 27* CREATININE 1.26* 1.34* 1.40* GLUCOSE 121* 112 107 Recent Labs Component Name 06/07/22 0224 06/06/22 0307 02/16/22 0757 MAGNESIUM 2.1 1.6 1.8 PHOS 2.7* 3.2 3.9 No results for input(s): PT, INR in the last 39791 hours. No results for input(s): PTT in the last 16130 hours. Cultures No results found for this or any previous visit (from the past 248 hour(s)). Physical Exam General: Awake, alert, follows commands, in no acute distress Neck: - C-collar/[place] J: Present - Tenderness to palpation: Deferred - ROM: Deferred - HV drain in place - Dressing clean, dry, and intact Drain output (24 hours, last shift): 80, 30 Bilateral Upper Extremity: - Motor: Right Left Shoulder Abduction 5/5 5/5 Elbow Extension 5/5 5/5 Elbow Flexion 5/5 5/5 Wrist Extension 5/5 5/5 Wrist Flexion 5/5 5/5 Finger Flexion 5/5 5/5 Finger Abduction 5/5 5/5 - Sensory: Intact to light touch distally Bilateral Lower Extremity: - Motor: Right Left Hip Flexion 5/5 5/5 Knee Flexion 5/5 5/5 Knee Extension 5/5 5/5 Ankle Dorsiflexion 5/5 5/5 Great Toe Extension 5/5 5/5 Ankle Plantarflexion 5/5 5/5 - Sensation: Intact to light touch distally Assessment/Plan Kandace Cole is a 72 year old female with cervical myelopathy - s/p C5-C6 laminectomies, C4-T2 PISF by Dr. Taylor on 06/04/2022 ??? Activity: Activity as tolerated in C-collar ??? Leg spasms improved ??? PT/OT daily ??? Anticoagulation: SCDs, ambulation ??? Recommend pain control and bowel regimen ??? Antibiotics: periop ancef completed ??? Will likely remove drain today ??? Wound care: ortho will perform first dressing change ??? Diet: OK from Ortho standpoint ??? Current Dispo: PT/OT recommending rehab although did not see patient 06/06 as she was receiving blood, drain ??? Please page Ortho Spine with any questions or concerns Joey Dickens MD 06/07/2022 5:31 AM IFIED HEARING INSTRUMENT DISPENSER Associated attestation - Deon Taylor MD - 06/07/2022 4:44 PM CERTIFIED HEARING INSTRUMENT DISPENSER I have seen and evaluated the patient and agree with the resident's assessment and plan as stated above. I have independently reviewed all imaging studies. Deon Taylor MD * Vivian Boo RN - 06/07/2022 12:09 AM CST Problem: Pain/Discomfort Goal: Patient exhibits reduced pain/discomfort as evidenced by pain scores Outcome: Adequate for Discharge Goal: Patient uses pharmacological and non-pharmacological pain management strategies. Outcome: Adequate for Discharge Goal: Patient verbalizes acceptable level of pain relief and ability to engage in desired activity. Outcome: Adequate for Discharge Problem: Fall Risk Goal: Fall risk and fall related injury risk are minimized (interventions related to the fall risk can be found in the flowsheet documentation) Outcome: Progressing IFIED HEARING INSTRUMENT DISPENSER * Annemarie Collazo COTA - 06/06/2022 3:59 PM CST [facility] Department of Physical Medicine & Rehabilitation Progress Note Patient: Kandace Cole Med Record Number: [id number] Date of : 1950 Age: [age] year old 06/06/22 1017 Missed Visit Missed Visit RN Cancel (Pt receiveing blood) IFIED HEARING INSTRUMENT DISPENSER * Heather Sethi - 06/06/2022 1:56 PM CST Internal Medicine Progress Note Patient: Kandace Cole (:1950) Room: [facility] Date of admission: 06/04/2022 No of days in hospital: 2 SUBJECTIVE: No acute events overnight. Pt is doing well and pleasant p/s elective spinal surgery 06/04 (C5-C6 laminectomy due to cervical myelopathy, C4-T2 posterior instrumental spinal fusion to prevent distal junctional kyphosis). Still in C- collar, not too bothered by it. She reports improvement in her restless leg syndrome and her pain. Hgb was 6.7 in AM, so transfused 1 unit of blood. IV iron supplements initiated. Pt reported receiving iron transfusions for 20 years with last transfusion 4 years ago. OBJECTIVE: Vitals: 06/06/22 0746 06/06/22 0942 06/06/22 0957 06/06/22 1219 BP: 151/54 133/62 141/57 130/56 Pulse: 91 92 96 85 Resp: Temp: 97.9 ??F (36.6 ??C) 98.1 ??F (36.7 ??C) 98.2 ??F (36.8 ??C) 98 ??F (36.7 ??C) SpO2: 97% 98% 98% 97% Weight: Height: Physical Exam Gen: Alert, cooperative, no distress,3 luba in back of head, laceration well healing Head: Normocephalic, without obvious abnormality, atraumatic Eyes: Conjunctivae/corneas clear, EOMI Nose: Mucosa normal. No drainage. Throat: Moist mucous membranes Neck: No JVD, trachea midline. C-collar, surgical drain in place draining serosanguinous fluid Back: Symmetric, no curvature Resp: CTAB, no wheezes/rales/rhonchi CV: RRR, S1S2, No M/R/G Abd: S/NT/ND, BS+, no bruits Ext: Constant leg movements due to restless leg syndrome, improved since yesterday; No edema b/l LE Pulses: 2+ DP B Skin: Skin color, texture, turgor normal. No rashes or lesions Neuro: No focal deficits LABS CBC: Recent Labs Component Name 06/06/22 0307 06/05/22 1232 06/05/22 0458 WBC 8.5 10.0 10.4 RBC 2.26* 2.31* 2.41* HGB 6.7* 7.0* 7.1* HCT 20.8* 20.9* 22.1* BMP: Recent Labs Component Name 06/06/22 0307 06/05/22 0458 05/15/22 1352 NA 129* 132* 137 CL 100 103 103 CO2 22 19* 25 BUN 25 27* 20 CREATININE 1.34* 1.40* 1.53* CALCIUM 8.9 8.5 9.4 LFTs: Recent Labs Component Name 02/16/2275602/14/22 2355 AST - 16 ALT - 13 ALKPHOS - 58 TBILI - 0.5 ALB 3.6 3.4 Magnesium: No results for input(s): MG in the last 22590 hours. Phosphorus: Recent Labs Component Name 06/06/2230602/16/22756 PHOS 3.2 3.9 Coagulation: No results for input(s): PT, INR, PTT in the last 22328 hours. Micro Microbiology Results (Displays last 21 days for this encounter ONLY) No results found for the last 504 hours. INTAKE/OUTPUT Intake/Output Summary (Last 24 hours) at 06/06/2022 1410 Last data filed at 06/06/2022 1219 Gross per 24 hour Intake 350 ml Output 100 ml Net 250 ml IMAGING: XR cervical spine 06/05/22 There is grade 1 anterolisthesis of C3 on C4 measuring approximately 2 mm. There is interval posterior spinal fusion from C4 to T2. Skin luba are seen. There is limited demonstration of the severe degenerative changes of the mid and lower cervical spine as seen on CT done 02/15/2022. There is poor delineation of the lower cervical spine and upper thoracic spine in lateral projection, precluding evaluation of alignment in this region. The dens is intact and the lateral masses are normally aligned. The predental interval and the prevertebral soft tissues are normal. Diffuse osteopenia. XR thoracic spine 06/05 Awaiting IMPRESSION/PLAN: Ms. Cole is a 72 year old female with a PMH of HTN, CKD, DM2, osteoarthritis, orthostatic syncopy, depression, and Ferrell's esophagus P/S elective spinal surgery 06/04 (C5-C6 laminectomy due to cervical myelopathy, C4-T2 posterior instrumental spinal fusion to prevent distal junctional kyphosis) admitted for post-op management. #Post-op care >Continue C-collar, engage in mobile activity as able >Follow wound care protocol for dressing changes >Constipation: dose changed Miralax 34 g PO QD, Senna 2 tablet PO QD due to pt being constipatedand not having bm for 2 days >Pain management: Tylenol 1000 mg q4hr PO, Oxycodone 5 mg q4hr PRN #Restless leg syndrome -Exacerbation likely due to iron def anemia -iron studies revealed low iron of 20 on 06/06 >Continue gabapentin 300 mg TID -received 1 dose of magnesium sulfate 2 g 06/06/22 -Consult neuro if no improvement #Anemia -Hgb 6.7 on 06/06/22 -iron studies revealed low iron of 20 on 06/06 -iron panel wnl -likely iron deficiency 2/2 CKD -received 1 unit of blood 06/06/22 >Continue IV iron sucrose 200 mg QD for 5 days -Folate and B12 blood wnl 06/06 #CKD #BMD #Osteoarthritis - Vit D 25-hydroxy, PTH intact w/o calcium normal -Discontinue calcitriol .25 mcg PO MWF 06/06 >At home 2,000 units PO QD #DM2 -last Hemoglobin A1C: 5.1 on 02/16/22 >repeat hemoglobin A1C 06/06/22 >Sliding scale insulin -hold at home subcutanous injections of 2mg Exenatide once a week #Ferrell's esophagus >Continue Protonix 40 mg PO QD -F/u outpt EGDs for monitoring #HTN >Continue carvedilol 6.25 mg BID PO >Continue lisinopril 20 mg PO QD -Hold Lasix 10 mg PO QD due to hyponatremia #Hyperlipidemia >Continue pravastatin 40 mg PO at bedtime #Depression >Continue bupropion (wellbutrin) 100 mg BID PO >Continue escitalopram 20 mg PO QD >Continue quetiapine 100 mg PO QD FEN: Keep Mg~2, K~4, Phos~3 ?? Dispo: Inpatient monitoring, PT/OT eval pending, likely rehab before returning home (living with grandson) Diet: Diabetic diet IVF: PIV x2 DVT: Mechanical Code: Full Hospital Course: Ms. Cole is a 72 year old female with a PMH of HTN, CKD, DM2, osteoarthritis, orthostatic syncope, and Ferrell's esophagus who had elective spinal surgery on 3/6 (C5-C6 laminectomy due to cervical myelopathy, C4-T2 posterior instrumental spinal fusion to prevent distal junctional kyphosis). She tolerated the surgery well. She lost 225 mL of blood, and she received 500 ml of 5% albumin. She was m charles to the [facility] team morning of 06/05 for management post-op. She was found to have a low hemoglobin on 2 CBCs (low of Hgb 7.0) which likely worsened her restless leg syndrome. Iron studies 06/06 showed iron def. Folate/B12 blood test, Vit D 25-hydroxy, and PTH intact w/o calcium for wnl 06/06. Pt received 1 unit of blood and IV iron. Pending PT/OT eval for rehab planning. PT is HDS. Heather Sethi MS3 Internal Medicine IFIED HEARING INSTRUMENT DISPENSER Associated attestation - Ama Gonzalez MD - 06/06/2022 8:42 PM CERTIFIED HEARING INSTRUMENT DISPENSER I have verified the documentation of the medical student. This note is for educational purposes only. Please refer to the resident's note for complete note for details and my assessment. Ama Gonzalez MD 06/06/2022 * Joanna Easley PT - 06/06/2022 10:00 AM CST [facility] Department of Physical Medicine & Rehabilitation Progress Note Patient: Kandace Cole Med Record Number: [id number] Date of : 1950 Age: [age] year old 06/06/22 1000 Missed Visit Missed Visit RN Cancel (Patient receiving blood) IFIED HEARING INSTRUMENT DISPENSER * Tammi Perez MD - 06/06/2022 9:01 AM CST Internal Medicine Progress Note Patient: Kandace Cole (:1950) Room: [facility] Date of admission: 06/04/2022 No of days in hospital: 2 SUBJECTIVE: No acute events overnight. Pt remains in c-collar and drain remains in place draining serosanguinous . Reports pain is well controlled. Hb <7 this AM. Transfusion & IV iron initiated. Per pt, she has had issues with iron absorption for ~20 years and has required multiple iron transfusions inpast, last ~4 years ago. RLS still present, possible exacerbated by KAIN. OBJECTIVE: Vitals: 06/05/22 2054 06/06/22 0013 06/06/22 0331 06/06/22 0746 BP: 105/71 119/45 131/47 151/54 Pulse: 89 80 85 91 Resp: 18 18 18 Temp: 97.5 ??F (36.4 ??C) 97.5 ??F (36.4 ??C) 97.8 ??F (36.6 ??C) 97.9 ??F (36.6 ??C) SpO2: 91% 100% 97% 97% Weight: Height: Physical Exam Gen: Alert, cooperative, no distress. head lac with luba in back of head , well healing Head: Normocephalic, without obvious abnormality, atraumatic Eyes: Conjunctivae/corneas clear, EOMI Nose: Mucosa normal. No drainage. Throat: Moist mucous membranes Neck: No JVD, trachea midline. c-collar in place. surgical drain in place draining serosanguinous fluid Back: Symmetric, no curvature Resp: CTAB, no wheezes/rales/rhonchi CV: RRR, S1S2, No M/R/G Abd: S/NT/ND, BS+, no bruits Ext: No edema b/l LE. continued movement/spasms of bl lower extremities Pulses: 2+ DP B Skin: Skin color, texture, turgor normal. No rashes or lesions Neuro: No focal deficits LABS CBC: Recent Labs Component Name 06/06/22 0307 06/05/22 1232 06/05/22 0458 WBC 8.5 10.0 10.4 RBC 2.26* 2.31* 2.41* HGB 6.7* 7.0* 7.1* HCT 20.8* 20.9* 22.1* BMP: Recent Labs Component Name 06/06/22 0307 06/05/228 05/15/22 1352 NA 129* 132* 137 CL 100 103 103 CO2 22 19* 25 BUN 25 27* 20 CREATININE 1.34* 1.40* 1.53* CALCIUM 8.9 8.5 9.4 LFTs: Recent Labs Component Name 02/16/22 0757 02/14/22 2355 AST - 16 ALT - 13 ALKPHOS - 58 TBILI - 0.5 ALB 3.6 3.4 Magnesium: No results for input(s): MG in the last 42450 hours. Phosphorus: Recent Labs Component Name 06/06/22 0307 02/16/22 0757 PHOS 3.2 3.9 Coagulation: No results for input(s): PT, INR, PTT in the last 60170 hours. Micro Microbiology Results (Displays last 21 days for this encounter ONLY) No results found for the last 504 hours. INTAKE/OUTPUT Intake/Output Summary (Last 24 hours) at 06/06/2022 0903 Last data filed at 06/06/2022 0330 Gross per 24 hour Intake -- Output 125 ml Net -125 ml IMAGING: Reviewed IMPRESSION/PLAN: #Cervical myelopathy s/p intervention - S/p C5-C6 laminectomies, C4-T2 PISF by Dr. Taylor on 06/04/2022 PLAN: - Orthopedic Surgery following, appreciate recs - Continue c-collar & drain management per Ortho - Pain control with scheduled tylenol and prn oxycodone - Bowel regiment - PT/OT consulted, recommending rehab- acceptance pending #DM2 - HbA1c: 5.1 01/2022 - Home rx: exenatide qweek PLAN: - Repeat HbA1c pending - Accuchecks & SSI - Diabetic Diet #HTN - Continue home coreg 6.25mg, lisinopril 20mg - Hold home lasix 10mg given hyponatremia and unclear etiology for pt being on it (no heart failurefailure or lower extremity edema) #Acute on chronic anemia - Hb <7.0 today (bl 9-10). likely iron deficiency anemia + ACKD - iron 20, transferrin 162, transferrin sat 10, TIBC 203 - B12 & folic acid wnl PLAN: - Daily CBC, transfuse for Hb <7, plt<10- getting 1unit pRBCs now - IV iron 200mg for 5 days #RLS - Possibly exacerbated by current acute on chronic anemia - Continue gabapentin - Anemia management as above #MDD #ARCHIE - Continue home escitalopram 20mg, buproprion 100mg BID - Decrease seroquel dose to 100mg qd from 200mg qd #CKD #BMD - Continue home calcitriol - vitamin D & iPTH ordered and wnl #Ghassan's Laxmigus - Continue home protonix 40mg daily - Outpatient f/u with serial EGDs for monitoring #HLD - Continue home pravastatin FEN: Keep Mg~2, K~4, Phos~3 ?? Dispo: Inpatient monitoring ?? Diet: Diabetic Diet IVF: None DVT: Lovenox Code: Full Hospital Course: Ms Cole is a 72 yo female with PMHx significant for HTN, CKD, DM-2, OA, ARCHIE/MMD??admitted for elective spinal surgery. S/p C5-C6 laminectomy, C4-T2 posterior instrumented spinal fusion with Orthopedic Surgery ON 06/04. Transfer to Geriatric Medicine on 06/05 for continued management. Continuing pain control regiment. Evaluated by PT/OT who are recommending rehab- acceptance pending. ? Tammi Perez MD PGY-3 Internal Medicine IFIED HEARING INSTRUMENT DISPENSER Associated attestation - Ama Gonzalez MD - 06/06/2022 9:13 PM CERTIFIED HEARING INSTRUMENT DISPENSER I have verified the documentation of the medicine resident including all history, exam, and medicaldecision-making details. I have personally performed a physical exam and have personally reviewed the data to support my medical decision-making as outlined in the resident's note, and I arrive independently at the same conclusion. We discussed the recommendation and educated the patient at the bedside. Plan as stated in the medicine resident's note. In summary, Mrs Cole is a 72 year old female who lives at home with the grandson, independent forADLs and most IADLS (limited by pain), has CKD, anemia, htn, OA, DM2 controlled (A1c 5.1 06/06/22), glaucoma, restless leg syndrome, prior admissions with dizziness with evidence of orthostatic hypotension and hyponatremia, frequent falls and polypharmacy, who was admitted to [facility] 06/04 for a planned cervical-thoracic posterior fusion with laminectomies for cervical myelopathy. The procedure was on 06/04/22 without complications, she continues to feel better and with less weakness has been working with PT/OT, still with the drain with hematogenous fluid. Had increased movement in her legs inthe setting of acute on chronic anemia, today with Hb of 6/8 and transfused earlier this today and started on IV iron. She states she has been on iron in the past with no effect to oral presentation,due to decreased absorption and has received IV iron in the past, but not in the recent years. Ironpanel confirms iron deficiency anemia, which per her report is chronic, She is already on gabapentin, acetaminophen and PRN oxy for the pain. Sodium is mildly low and potassium mildly elevated but BPis normal, adrenal insuffiency is unlikely. She is on multiple antidepressants and high dose of quetiapine which can be also adding to the falls, and with the SSRI the hyponatremia. She states also hy ponatremia has been chronic and they wanted to start her on salt pills at some point. Will discuss antidepressants with her during this admission. Also at home on hypoglycemic medications for DM despite her a1c of 5.1, all medications for diabetes will be discontinued at discharge as hypoglycemia can also be adding to the falls. No evidence of orthostatic hypotension this admission. Plan to discha rge to acute rehab per PT/OT recommendations when medically ready. Ama Gonzalez MD Geriatrics and Palliative Medicine Attending Date of encounter: 06/06/2022 * Joey Dickens MD - 06/06/2022 8:08 AM CST U Orthopedic Spine Surgery Daily Progress Note Kandace Cole, 72 year old, female : 1950 CSN: [id number] Primary Care Physician: Karrie Phillips MD, MD - Admission Date/Time: 06/04/2022 5:08 AM - Hospital Day: 2 Subjective Patient seen and examined this AM on rounds. No acute orthopaedic events overnight, pain controlled. Denies new numbness/paresthesias. Her arms feel better but she says her legs are moving by themselves. Given 1u pRBCs today for hgb of 6.7 Vitals Temp (24hrs), Av.8 ??F (36.6 ??C), Min:97.5 ??F (36.4 ??C), Max:98.1 ??F (36.7 ??C) BP 131/47 Pulse 85 Temp 97.8 ??F (36.6 ??C) (Oral) Resp 18 Ht 1.549 m (5' 1 ) Wt 60.5 kg (133 lb 6.4 oz) SpO2 97% Labs Recent Labs Component Name 06/06/22 0307 06/05/22 1232 06/05/22 0458 WBC 8.5 10.0 10.4 HGB 6.7* 7.0* 7.1* HCT 20.8* 20.9* 22.1* PLTCOUNT 254 259 273 Recent Labs Component Name 06/06/22 03006/05/22 0458 05/15/22 1352 NA 129* 132* 137 POTASSIUM 4.6* 5.2* 4.6* CL 100 103 103 CO2 22 19* 25 BUN 25 27* 20 CREATININE 1.34* 1.40* 1.53* GLUCOSE 112 107 107 Recent Labs Component Name 06/06/22 0307 02/16/22 0757 MAGNESIUM 1.6 1.8 PHOS 3.2 3.9 No results for input(s): PT, INR in the last 20338 hours. No results for input(s): PTT in the last 94237 hours. Cultures No results found for this or any previous visit (from the past 248 hour(s)). Physical Exam General: Awake, alert, follows commands, in no acute distress Neck: - C-collar/[place] J: Present - Tenderness to palpation: Deferred - ROM: Deferred - HV drain in place Drain output (24 hours, last shift): 150, 100 Bilateral Upper Extremity: - Motor: Right Left Shoulder Abduction 5/5 5/5 Elbow Extension 5/5 5/5 Elbow Flexion 5/5 5/5 Wrist Extension 5/5 5/5 Wrist Flexion 5/5 5/5 Finger Flexion 5/5 5/5 Finger Abduction 5/5 5/5 - Sensory: Intact to light touch distally Bilateral Lower Extremity: - Motor: Right Left Hip Flexion 5/5 5/5 Knee Flexion 5/5 5/5 Knee Extension 5/5 5/5 Ankle Dorsiflexion 5/5 5/5 Great Toe Extension 5/5 5/5 Ankle Plantarflexion 5/5 5/5 - Sensation: Intact to light touch distally Assessment/Plan Kandace Cole is a 72 year old female with cervical myelopathy - s/p C5-C6 laminectomies, C4-T2 PISF by Dr. Taylor on 06/04/2022 ??? Activity: Activity as tolerated in C-collar ??? Still having leg spasms/RLS, could be iron deficiency ??? PT/OT ??? Anticoagulation: SCDs, ambulation ??? Recommend pain control and bowel regimen ??? Antibiotics: periop ancef ??? Wound care: ortho will perform first dressing change ??? Diet: OK from Ortho standpoint ??? Current Dispo: PT/OT, drain ??? Please page Ortho Spine with any questions or concerns Joey Dickens MD 06/06/2022 8:08 AM IFIED HEARING INSTRUMENT DISPENSER Associated attestation - Deon Taylor MD - 06/06/2022 12:41 PM CERTIFIED HEARING INSTRUMENT DISPENSER I have seen and evaluated the patient and agree with the resident's assessment and plan as stated above. I have independently reviewed all imaging studies. Deon Taylor MD * Makenzie Choi RN - 06/06/2022 7:30 AM CST Problem: Pain/Discomfort Goal: Patient exhibits reduced pain/discomfort as evidenced by pain scores Outcome: Progressing Goal: Patient uses pharmacological and non-pharmacological pain management strategies. Outcome: Progressing Goal: Patient verbalizes acceptable level of pain relief and ability to engage in desired activity. Outcome: Progressing Problem: Fall Risk Goal: Fall risk and fall related injury risk are minimized (interventions related to the fall risk can be found in the flowsheet documentation) Outcome: Progressing Problem: Ineffective breathing pattern related to obstructive sleep apnea Goal: Maintains optimal sleep pattern, as evidenced by relaxed breathing at normal rate and depth. Outcome: Progressing Goal: Adheres to CPAP (Continuous Positive Airway Pressure) device regimen as prescribed. Outcome: Progressing Problem: Sleep deprivation related to sleep apnea. Goal: Achieves restful, refreshing sleep pattern. Outcome: Progressing Problem: Nutrient: Increased nutrient needs (specify) Goal: Total intake will meet estimated nutrient needs Outcome: Progressing Problem: Grooming Goal: LTG - Patient will complete daily grooming tasks Outcome: Progressing Problem: Balance Goal: LTG - Patient will maintain balance to allow for safe mobility Outcome: Progressing IFIED HEARING INSTRUMENT DISPENSER * Slim Camacho RN - 06/05/2022 11:00 PM CST Problem: Pain/Discomfort Goal: Patient exhibits reduced pain/discomfort as evidenced by pain scores Outcome: Progressing Goal: Patient uses pharmacological and non-pharmacological pain management strategies. Outcome: Progressing Goal: Patient verbalizes acceptable level of pain relief and ability to engage in desired activity. Outcome: Progressing Problem: Fall Risk Goal: Fall risk and fall related injury risk are minimized (interventions related to the fall risk can be found in the flowsheet documentation) Outcome: Progressing Problem: Ineffective breathing pattern related to obstructive sleep apnea Goal: Maintains optimal sleep pattern, as evidenced by relaxed breathing at normal rate and depth. Outcome: Progressing Goal: Adheres to CPAP (Continuous Positive Airway Pressure) device regimen as prescribed. Outcome: Progressing Problem: Sleep deprivation related to sleep apnea. Goal: Achieves restful, refreshing sleep pattern. Outcome: Progressing Problem: Nutrient: Increased nutrient needs (specify) Goal: Total intake will meet estimated nutrient needs Outcome: Progressing Problem: Grooming Goal: LTG - Patient will complete daily grooming tasks Outcome: Progressing Problem: Balance Goal: LTG - Patient will maintain balance to allow for safe mobility Outcome: Progressing IFIED HEARING INSTRUMENT DISPENSER * Tammi Perez MD - 06/05/2022 4:34 PM CST Internal Medicine Progress Note Patient: Kandace Cole (:1950) Room: [facility] Date of admission: 06/04/2022 No of days in hospital: 1 SUBJECTIVE: No acute events overnight. Pt remains in c-collar. Reports pain is well controlled. Worked with PT/OT today and denies dizziness during activity. Orthostatics negative. Currently pending rehab placement. OBJECTIVE: Vitals: 06/05/22 0340 06/05/22 0840 06/05/22 0841 06/05/22 1108 BP: 154/53 167/61 167/61 136/75 Pulse: 86 98 98 91 Resp: 18 18 18 Temp: 97.6 ??F (36.4 ??C) 98.1 ??F (36.7 ??C) 98 ??F (36.7 ??C) SpO2: 97% 97% 98% Weight: Height: Physical Exam Gen: Alert, cooperative, no distress Head: Normocephalic, without obvious abnormality, atraumatic Eyes: Conjunctivae/corneas clear, EOMI Nose: Mucosa normal. No drainage. Throat: Moist mucous membranes Neck: No JVD, trachea midline Back: Symmetric, no curvature Resp: CTAB, no wheezes/rales/rhonchi CV: RRR, S1S2, No M/R/G Abd: S/NT/ND, BS+, no bruits Ext: No edema b/l LE. continued movement/spasms of bl lower extremities Pulses: 2+ DP B Skin: Skin color, texture, turgor normal. No rashes or lesions Neuro: No focal deficits LABS CBC: Recent Labs Component Name 06/05/22 1232 06/05/22 0458 05/15/22 1352 WBC 10.0 10.4 6.6 RBC 2.31* 2.41* 3.34* HGB 7.0* 7.1* 9.9* HCT 20.9* 22.1* 30.4* BMP: Recent Labs Component Name 06/05/22 0458 05/15/22 1352 02/19/22 0429 NA 132* 137 132* CL 103 103 104 CO2 19* 25 22 BUN 27* 20 18 CREATININE 1.40* 1.53* 1.58* CALCIUM 8.5 9.4 9.1 LFTs: Recent Labs Component Name 02/16/22 0757 02/14/22 2355 AST - 16 ALT - 13 ALKPHOS - 58 TBILI - 0.5 ALB 3.6 3.4 Magnesium: No results for input(s): MG in the last 80613 hours. Phosphorus: Recent Labs Component Name 02/16/22 0757 PHOS 3.9 Coagulation: No results for input(s): PT, INR, PTT in the last 33378 hours. Micro Microbiology Results (Displays last 21 days for this encounter ONLY) No results found for the last 504 hours. INTAKE/OUTPUT Intake/Output Summary (Last 24 hours) at 06/05/2022 1634 Last data filed at 06/05/2022 0640 Gross per 24 hour Intake -- Output 1650 ml Net -1650 ml IMAGING: Reviewed IMPRESSION/PLAN: #Cervical myelopathy s/p intervention - S/p C5-C6 laminectomies, C4-T2 PISF by Dr. Taylor on 06/04/2022 PLAN: - Orthopedic Surgery following, appreciate recs - Continue c-collar - Pain control with scheduled tylenol and prn oxycodone - Bowel regiment - PT/OT consulted, recommending rehab- acceptance pending #DM2 - HbA1c: 5.1 01/2022 - Home rx: exenatide qweek PLAN: - Repeat HbA1c - Accuchecks & SSI - Diabetic Diet #HTN - Continue home coreg 6.25mg, lisinopril 20mg #Acute on chronic normocytic anemia - Hb 7.0 today (bl 9-10). ddx: KAIN vs ACD/ACKD vs vitamin deficiency. less likely blood loss anemiafrom surgery. possibly dilution given IVF s/p procedure PLAN: - Obtain iron studies, folic acid, B12 - Daily CBC, transfuse for Hb <7, plt<10 #RLS - Possibly exacerbated by current acute on chronic anemia - Continue gabapentin - Anemia management as above #MDD #ARCHIE - Continue home escitalopram 20mg, buproprion 100mg BID - Decrease seroquel dose to 100mg qd from 200mg qd #CKD #BMD - Continue home calcitriol - vitamin D & iPTH ordered #Prachis Daniela - Continue home protonix 40mg daily - Outpatient f/u with serial EGDs for monitoring #HLD - Continue home pravastatin FEN: Keep Mg~2, K~4, Phos~3 ?? Dispo: Inpatient monitoring ?? Diet: Diabetic Diet IVF: None DVT: Lovenox Code: Full Hospital Course: Ms Cole is a 72 yo female with PMHx significant for HTN, CKD, DM-2, OA, ARCHIE/MMD??admitted for elective spinal surgery. S/p C5-C6 laminectomy, C4-T2 posterior instrumented spinal fusion with Orthopedic Surgery ON 06/04. Transfer to Geriatric Medicine on 06/05 for continued management. Continuing pain control regiment. Evaluated by PT/OT who are recommending rehab- acceptance pending. ? Tammi Perez MD PGY-3 Internal Medicine IFIED HEARING INSTRUMENT DISPENSER Associated attestation - Ama Gonzalez MD - 06/05/2022 8:56 PM CERTIFIED HEARING INSTRUMENT DISPENSER I have verified the documentation of the medicine resident including all history, exam, and medicaldecision-making details. I have personally performed a physical exam and have personally reviewed the data to support my medical decision-making as outlined in the resident's note, and I arrive independently at the same conclusion. We discussed the recommendation and educated the patient at the bedside. Plan as stated in the medicine resident's note. In summary, Mrs Cole is a 72 year old female who lives at home with the grandson, independent forADLs and most IADLS (limited by pain ), has CKD, anemia, htn, OA, DM2, glaucoma, restless leg syndrome, prior admissions with dizziness with evidence of orthostatic hypotension and hyponatremia, frequent falls and polypharmacy, who was admitted to [facility] 06/04 for a planned cervical-thoracic posterior fusion with laminectomies for cervical myelopathy. The procedure was yesterday without complications, today she states she is feeling better, was already able to walk with PT and feels less weakness. She is concerned about the constant movement in her legs, which is new despite having restless leg syndrome and is associated with mild shooting pain, movement and sensation are preserved. Labsare unremarkable except for anemia with Hb repeated at 7 which is a drop from her baseline, no evidence of bleeding, will continue to monitor and most likely will need transfusion in the near future,specially as this can be exacerbating the discomfort from the restless leg syndrome. Iron panel ordered for tomorrow. She is already on gabapentin, acetaminophen and PRN oxy for the pain. Sodium is mildly low and potassium mildly elevated bu BP is normal, adrenal insuffiency is unlikely. She is on multiple antidepressants and high dose of quetiapine which can be also adding to the falls, and withthe SSRI the hyponatremia. Will review further the prescription of these medications but will consider decreasing the quetiapine dose during this admission. Also at home on hypoglycemic medications for DM despite her a1c of 5.2 last year, will check A1c again to adjust home regimen as hypoglycemia can also be adding to the falls. Still has a drain from surgery. Pending definite PT/OT recommendations for disposition. Ama Gonzalez MD Geriatrics and Palliative Medicine Attending Date of encounter: 06/05/2022 * Cammy Aleman RN - 06/05/2022 4:08 PM CST Case Management Initial Assessment Anticipated Discharge Date: 06/06/22 Transportation at Discharge: Family Anticipated level of care at discharge: Acute Rehab Facility Anticipated level of care provider: All Prior to admission level of care: Home Prior to admit provider: All Discharge Goals and Plans: Patient Goals: Rehab Plans: Discharge needs identified. See progress notes for details. Case Management to follow for discharge planning. Upon discharge or transfer to a post acute facility should rehospitalization, home health, rehabilitation, or any other follow up care be required, patient's preference is to stay within the [facility] and its affiliates.: Unsure Comments: Lives with: Other (Comment) (Grandson) Physical Limitations: None Independent with the use of a ww Requires Assistance With: None Preferred [facility]acy: [facility] [address] [facility] [id number] [address] [facility] [id number] Advance Directive: No Advance Directive Information Given: Not Applicable Would you like assistance on completing and executing or revising an Advance Directive?: No Payer/Plan Subscriber Name Rel Member # Group # [facility] MANAGED MEDICARE * KANDACE COLE Mark [id number] [address] [address] 16 at 4:08 PM 06/05/2022. Met with patient Family Support (name and phone): Extended Emergency Contact Information Primary Emergency Contact: BARBARA CISNEROS Mobile Relation: Brother Secondary Emergency Contact: Barbara Cisneros Address: [place], [place] Relation: Other Patient or customer contact representative requests care coordination reach out to family or caregiver listed above regarding discharge planning and at time of discharge? Yes grandson Patient/Family provided with list of resources? Unknown Preferred Provider / High Quality Network List given?: Unknown Reason for provider choice: Unknown Equipment at Home: Chair-Shower;Grab Bars;Cane-Small Base Quad;Walker-2 Wheeled;Walker-4 Wheeled with Seat List DME pt. requires but does not have.: None Summer Nanny Referral: Yes -Placement Will continue to follow. For any questions or needs please contact: Insurance Verifier Name/Phone number: Cammy Aleman RN Case environmental sustainability manager: [phone] 06/05/2022 IFIED HEARING INSTRUMENT DISPENSER * Heather Sethi - 06/05/2022 2:44 PM CST Internal Medicine Progress Note Patient: Kandace Cole (:1950) Room: [facility] Date of admission: 06/04/2022 No of days in hospital: 1 SUBJECTIVE: No acute events overnight. Pt underwent elective spinal surgery 06/04 (C5-C6 laminectomy due to cervical myelopathy, C4-T2 posterior instrumental spinal fusion to prevent distal junctional kyphosis). Pt is doing well and pleasant. She reports worsening of her restless leg syndrome. Otherwise much improvement in her walking. She worked with OT/PT today. OBJECTIVE: Vitals: 06/05/22 0340 06/05/22 0840 06/05/22 0841 06/05/22 1108 BP: 154/53 167/61 167/61 136/75 Pulse: 86 98 98 91 Resp: 18 18 18 Temp: 97.6 ??F (36.4 ??C) 98.1 ??F (36.7 ??C) 98 ??F (36.7 ??C) SpO2: 97% 97% 98% Weight: Height: Physical Exam Gen: Alert, cooperative, no distress Head: Normocephalic, without obvious abnormality, atraumatic Eyes: Conjunctivae/corneas clear, EOMI Nose: Mucosa normal. No drainage. Throat: Moist mucous membranes Neck: No JVD, trachea midline Back: Symmetric, no curvature Resp: CTAB, no wheezes/rales/rhonchi CV: RRR, S1S2, No M/R/G Abd: S/NT/ND, BS+, no bruits Ext: Constant leg movements due to restless leg syndrome, No edema b/l LE Pulses: 2+ DP B Skin: Skin color, texture, turgor normal. No rashes or lesions Neuro: No focal deficits LABS CBC: Recent Labs Component Name 06/05/22 1232 06/05/22 0458 05/15/22 1352 WBC 10.0 10.4 6.6 RBC 2.31* 2.41* 3.34* HGB 7.0* 7.1* 9.9* HCT 20.9* 22.1* 30.4* BMP: Recent Labs Component Name 06/05/22 0458 05/15/22 1352 02/19/22 0429 NA 132* 137 132* CL 103 103 104 CO2 19* 25 22 BUN 27* 20 18 CREATININE 1.40* 1.53* 1.58* CALCIUM 8.5 9.4 9.1 LFTs: Recent Labs Component Name 02/16/22 0757 02/14/22 2355 AST - 16 ALT - 13 ALKPHOS - 58 TBILI - 0.5 ALB 3.6 3.4 Magnesium: No results for input(s): MG in the last 92654 hours. Phosphorus: Recent Labs Component Name 02/16/22 0757 PHOS 3.9 Coagulation: No results for input(s): PT, INR, PTT in the last 89336 hours. Micro Microbiology Results (Displays last 21 days for this encounter ONLY) No results found for the last 504 hours. INTAKE/OUTPUT Intake/Output Summary (Last 24 hours) at 06/05/2022 1541 Last data filed at 06/05/2022 0640 Gross per 24 hour Intake -- Output 1650 ml Net -1650 ml IMAGING: XR cervical spine 06/05/22 There is grade 1 anterolisthesis of C3 on C4 measuring approximately 2 mm. There is interval posterior spinal fusion from C4 to T2. Skin luba are seen. There is limited demonstration of the severe degenerative changes of the mid and lower cervical spine as seen on CT done 02/15/2022. There is poor delineation of the lower cervical spine and upper thoracic spine in lateral projection, precluding evaluation of alignment in this region. The dens is intact and the lateral masses are normally aligned. The predental interval and the prevertebral soft tissues are normal. Diffuse osteopenia. XR thoracic spine 06/05 Awaiting radiology reading IMPRESSION/PLAN: Ms. Cole is a 72 year old female with a PMH of HTN, CKD, DM2, osteoarthritis, orthostatic syncopy, and Ferrell's esophagus P/S elective spinal surgery 06/04 (C5-C6 laminectomy due to cervical myelopathy, C4-T2 posterior instrumental spinal fusion to prevent distal junctional kyphosis) admitted for post-op management. #Post-op care >Continue C-collar, engage in mobile activity as able >Follow wound care protocol for dressing changes >Constipation: Miralax 17 g PO QD, Senna 1 tablet PO QD >Pain management: Tylenol 1000 mg q4hr PO, Oxycodone 5 mg q4hr PRN #Restless leg syndrome -Exacerbation likely due to anemia >Continue gabapentin 300 mg TID -Consult neuro if no improvement #Anemia -normal MCV 90.5, Hgb low at 7 -likely iron deficiency 2/2 CKD vs folate/B12 def >Iron studies planned 06/06 >Folate and B12 blood test planned 06/06 >Transfuse if Hgb <7 #Osteoarthritis >Blood tests planned 06/06: Vit D 25-hydroxy, PTH intact w/o calcium >Continue calcitriol .25 mcg PO MWF >At home 2,000 units PO QD #DM2 -last Hemoglobin A1C: 5.1 on 02/16/22 >repeat hemoglobin A1C 06/06/22 >Sliding scale insulin -hold at home subcutanous injections of 2mg Exenatide once a week #Ferrell's esophagus >Continue Protonix 40 mg PO QD #HTN >Continue carvedilol 6.25 mg BID PO >Continue lisinopril 20 mg PO QD >Continue Lasix 10 mg PO QD #Hyperlipidemia >Continue pravastatin 40 mg PO at bedtime #Depression >Continue bupropion (wellbutrin) 100 mg BID PO >Continue escitalopram 20 mg PO QD >Quetiapine changed to 100 mg PO QD instead of BID FEN: Keep Mg~2, K~4, Phos~3 ?? Dispo: Inpatient monitoring, PT/OT eval pending, likely rehab before returning home (living with grandson) Diet: Diabetic diet IVF: PIV x2 DVT: Mechanical Code: Full Hospital Course: Ms. Cole is a 72 year old female with a PMH of HTN, CKD, DM2, osteoarthritis, orthostatic syncope, and Ferrell's esophagus who had elective spinal surgery on 06/04 (C5-C6 laminectomy due to cervical myelopathy, C4-T2 posterior instrumental spinal fusion to prevent distal junctional kyphosis). She tolerated the surgery well. She lost 225 mL of blood, and she received 500 ml of 5% albumin. She was m charles to the LENNIE team morning of 06/05 for management post-op. She was found to have a low hemoglobin on 2 CBCs (low of Hgb 7.0) which likely worsened her restless leg syndrome. Pending iron studies, folate/B12 blood test, Vit D 25- hydroxy, and PTH intact w/o calcium for 06/06. Pending PT/OT eval for rehab planning. PT is HDS. Heather Sethi MS3 Internal Medicine IFIED HEARING INSTRUMENT DISPENSER Associated attestation - Ama Gonzalez MD - 06/05/2022 11:04 PM CERTIFIED HEARING INSTRUMENT DISPENSER I have verified the documentation of the medical student. This note is for educational purposes only. Please refer to the resident's note for complete note for details and my assessment. Ama Gonzalez MD 06/05/2022 * Makenzie Choi RN - 06/05/2022 10:54 AM CST Problem: Pain/Discomfort Goal: Patient exhibits reduced pain/discomfort as evidenced by pain scores Outcome: Progressing Goal: Patient uses pharmacological and non-pharmacological pain management strategies. Outcome: Progressing Goal: Patient verbalizes acceptable level of pain relief and ability to engage in desired activity. Outcome: Progressing Problem: Fall Risk Goal: Fall risk and fall related injury risk are minimized (interventions related to the fall risk can be found in the flowsheet documentation) Outcome: Progressing Problem: Ineffective breathing pattern related to obstructive sleep apnea Goal: Maintains optimal sleep pattern, as evidenced by relaxed breathing at normal rate and depth. Outcome: Progressing Goal: Adheres to CPAP (Continuous Positive Airway Pressure) device regimen as prescribed. Outcome: Progressing Problem: Sleep deprivation related to sleep apnea. Goal: Achieves restful, refreshing sleep pattern. Outcome: Progressing IFIED HEARING INSTRUMENT DISPENSER * Sandra Brown, PT - 06/05/2022 10:27 AM CST [facility] Physical Medicine and Rehabilitation Physical Therapy Initial Evaluation Note Patient: Kandace Cole [facility] Record Number: [id number] Date of : 1950 Age: [age] year old PPE worn by staff: gloves;mask - procedural PPE worn by patient: gown - patient, clean;socks - clean CO-EVAL w/ OT due to level of skilled assist needed unknown Discharge Recommendation: Patient will benefit from intense 3 hour per day multidisciplinary inpatient therapies due to increased assist with functional mobility s/p C5-C6 Laminectomy, C2-T4 PISF. In addition to the 1:1 evaluation of the patient, additional eval time was spent completing the chart review prior to the assessment, completing the multidisciplinary plan of care and education plan post evaluation and communicating results of the eval to other treatment team members. Nurse and Occupational Therapy contacted regarding patient status and/or discharge plan. Physician Orders: Evaluation and Treat PRECAUTIONS: Weight Bearing Status: (no restrictions) Activity Level: Activity as Tolerated (in c-collar) DIAGNOSIS: Patient Active Problem List: Degeneration of cervical intervertebral disc Syncope and collapse Trauma Injury of head, initial encounter Fall, initial encounter Multiple closed fractures of facial bone, initial encounter ([facility]) Abdominal pain Abnormal serum creatinine level Anemia Ferrell's esophagus Cardiomegaly Chronic kidney disease Chronic obstructive pulmonary disease ([facility]) Chronic depression Dyspnea on exertion Benign essential hypertension Glaucoma Hyperkalemia Hyposmolality Hyperthyroidism Hypothyroidism Intractable chronic migraine without aura Iron deficiency anemia Leukocytosis Macular degeneration Migraine Ulnar neuropathy Type 2 diabetes mellitus ([facility]) Type 2 diabetes mellitus with stage 3 chronic kidney disease, without long-term current use of insulin ([facility]) Temporomandibular joint disorder Systemic sclerosis ([facility]) Sprain of ankle Sciatica Recurrent major depression in remission ([facility]) Raynaud's disease Primary fibromyalgia syndrome Polyp of colon Perineal pain Paronychia of toe of right foot Onychomycosis of toenail Nonexudative 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 Nausea Multiple bruises Mixed hyperlipidemia Mixed collagen vascular disease (CMS/HCC) Past Medical History: Diagnosis Date ??? Anemia ??? Ferrell's esophagus ??? CKD (chronic kidney disease), stage III (CMS/HCC) ??? Diabetes ??? Disease of esophagus ??? Fibromyalgia ??? Glaucoma ??? HTN (hypertension) ??? Macular degeneration ??? Osteoarthritis ??? Raynaud disease ??? Sleep apnea ??? Ulnar neuropathy SUBJECTIVE: Subjective: Pt is agreeable to PT session PATIENT GOALS: Patient's Primary Concern: To get better and stronger Home Situation: Type of Residence: Private Residence Lives with:: (grandson) Steps to Enter: 1 Home Structure: One Story Primary Bedroom: First Floor Primary Bathroom: First Floor Bathroom : Tub/Shower Combo Equipment at Home: Chair-Shower;Grab Bars;Cane-Small Base Quad;Walker-2 Wheeled;Walker-4 Wheeled with Seat (pt states she usually uses 2WW) Prior Level of Functioning: Prior Level of Function Mobility: Ambulate-In Community;Ambulate-In Home ;With Assistive Device Fallen Within 6 Mos: 1 ( I've fall several times. My balance was all off. ) Have Help at Home?: Yes, there is help at home now Who assists you at home?: Friends/Family How often is assistance provided?: PT/OT after fall Oxygen at Home: No Vision: Corrected with glasses Hearing Exceptions: Hearing concerns Who manages medications?: self Pain Assessment: Pain Location #1 Pain Scale/Observation: Numeric (0-10) Pain Rating Score #1: (Pt did not rate, no follow up indicated at this time and pt agreeable to continue) Pain Location : Neck;Leg OBJECTIVE: At start of therapy session, patient found in bed and with bed alarm on. General Appearance: female, in bed, on bed hardin, c-collar donned LDAs: IV's: Peripheral line Edema: no edema noted in bilateral lower extremities Vitals: (*Assess the 3 levels of oxygen saturations both for room air and 02 unless rest on room air is 88% or less). Rest BP: 148/123 143/66 (88) HR: 92 Sp02 Sp02 Ex/Gait/Activity Without 02 BP: 136/78 (93) HR: 94 Sp02 100% RA Post Activity BP: 136/75 (91) HR: 91 Sp02 Sp02 98% RA Observations: Pt with dizziness upon sitting EOB; symptoms improved with rest and cues for ankle pumps/keeping eyes open. Mental Status/Cognition: Level of Consciousness-Adult: Alert;Eyes Open Spontaneously Orientation Level: Oriented X4 Cognition: Follows Commands-Consistent;Attention/concentration-normal for age;Processing-Appropriate;Judgement-decreased;Safety awareness-decreased Attention Span: Appears intact Following Commands: Follows all commands and directions without difficulty Safety Judgement: Decreased awareness of need for safety Awareness of Errors: Decreased awareness of deficits ROM: RLE: AROM WFL LLE: AROM WFL Strength: RLE:WFL LLE: WFL Tone: RLE: no abnormal tone noted LLE: no abnormal tone noted Coordination: RLE: impaired LLE: impaired Sensation: RLE: intact, no complaints of numbness or tingling LLE: intact, no complaints of numbness or tingling Mobility: A gait belt and non-slip socks were used for all out of bed activity this date. Bed Mobility: Rolling: Moderate Assistance to Right Supine to Sit: Moderate Assistance;X 2 with HOB in semi-fowlers position Sit to Supine: Activity Does Not Occur (pt remains seated in bedside chair) Transfers: Sit to Stand: Minimal Assistance Stand to Sit: Minimal Assistance Transfer Device: Gait belt;Walker-2 Wheeled Gait: Weight Bearing Status: (no restrictions) Distance Ambulated: 20 FEET Ambulation: Assistive Device: Gait Belt;Walker-2 Wheeled Ambulation: Level of Assistance: Minimum Assistance Ambulation: Gait Deviations: Cheryle - Decreased;Heel Strike - Decreased;Increased Weight Bearing through Upper Extremity;Increased Trunk Flexion;Step Length - Decreased;Push Off - Decreased Balance: Balance Scales/Tests Used: Sitting: Static/Dynamic;Standing: Static/Dynamic Sitting - Static: Good Sitting - Dynamic: Good - Standing - Static: Fair;With Both Upper Extremity's Support Standing - Dynamic: Fair -;With Both Upper Extremity's Support ACTIVITY TOLERANCE: Patient's activity tolerance: fair TREATMENT/INTERVENTIONS: evaluation, bed mobility training, transfer training, gait training, balance activities and monitoring of vitals EDUCATION: While performing PT, Patient was instructed in:functional mobility training, safety awareness/fall precautions , pursed lip breathing techniques, discharge planning, use of call light Presented to patient who demonstrates Fair understanding of instructions given. INFORMED CONSENT TO TREATMENT: Plan of care including recommended therapy, goals and frequency, discussed with patient who understands and agrees to proceed. ASSESSMENT: Patient would benefit from additional Physical Therapy sessions to achieve the following functionalgoals to enhance independence. Short Term Goals: Patient will perform bed mobility with minimal assist Patient will transfer sit to/from stand with stand by assist Patient will transfer bed to/from chair with stand by assist Patient will ambulate 75 feet with minimal assist and appropriate AD Machinist Supervisor Goal(s): Patient to discharge to appropriate next level of inpatient care. Equipment Issued: gait belt Plan: Plan: Gait training Transfer training Assistive device training Endurance training Bed mobility training Balance training Energy conservation techniques Safety awareness If patient is discharged from the facility, this note serves as a discharge summary if further physical therapy visits did not occur. Refer to filed flowsheet for further details. Following therapy session, patient left in patient bedside chair, with green waffle cushion in place, with chair alarm on, with call light within reach, with RNMigdalia, aware. All lines intact. IFIED HEARING INSTRUMENT DISPENSER * Olimpia Adames, OT - 06/05/2022 10:22 AM CST [facility] Physical Medicine and Rehabilitation Occupational Therapy Initial Evaluation Note Patient: Kandace Cole Med Record Number: [id number] Date of : 1950 Age: [age] year old PPE worn by staff: gloves;mask - procedural PPE worn by patient: gown - patient, clean;socks - clean Co-eval with PT to increase pt function and safety. Discharge Recommendation: Patient can tolerate 3 hour per day, multidisciplinary inpatient therapies to increase safety and independence during ADL/IADL completion s/p spine surgery. In addition to the 1:1 evaluation of the patient, additional eval time was spent completing the chart review prior to the assessment, completing the multidisciplinary plan of care and education plan post evaluation and communicating results of the eval to other treatment team members. Nurse and Physical Therapy contacted regarding patient status and/or discharge plan. Physician Orders: Evaluation and Treat Activity Level: as tolerated PRECAUTIONS: Spine Precautions: No bending,lifting, no twisting (AAT in c-collar) DIAGNOSIS: Patient Active Problem List: Degeneration of cervical intervertebral disc Syncope and collapse Trauma Injury of head, initial encounter Fall, initial encounter Multiple closed fractures of facial bone, initial encounter ([facility]/HCC) Abdominal pain Abnormal serum creatinine level Anemia Ferrell's esophagus Cardiomegaly Chronic kidney disease Chronic obstructive pulmonary disease (CMS/HCC) Chronic depression Dyspnea on exertion Benign essential hypertension Glaucoma Hyperkalemia Hyposmolality Hyperthyroidism Hypothyroidism Intractable chronic migraine without aura Iron deficiency anemia Leukocytosis Macular degeneration Migraine Ulnar neuropathy Type 2 diabetes mellitus ([facility]/HCC) Type 2 diabetes mellitus with stage 3 chronic kidney disease, without long-term current use of insulin ([facility]/HCC) Temporomandibular joint disorder Systemic sclerosis ([facility]) Sprain of ankle Sciatica Recurrent major depression in remission ([facility]) Raynaud's disease Primary fibromyalgia syndrome Polyp of colon Perineal pain Paronychia of toe of right foot Onychomycosis of toenail Nonexudative 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 Nausea Multiple bruises Mixed hyperlipidemia Mixed collagen vascular disease ([facility]) Past Medical History: Diagnosis Date ??? Anemia ??? Ferrell's esophagus ??? CKD (chronic kidney disease), stage III ([facility]) ??? Diabetes ??? Disease of esophagus ??? Fibromyalgia ??? Glaucoma ??? HTN (hypertension) ??? Macular degeneration ??? Osteoarthritis ??? Raynaud disease ??? Sleep apnea ??? Ulnar neuropathy SUBJECTIVE: Subjective: Pt agreeable to therapy. This is the first time i've gotten up. PATIENT GOALS: Not stated Home Situation: Type of Residence: Private Residence Lives with:: (grandson) Steps to Enter: 1 Home Structure: One Story Primary Bedroom: First Floor Primary Bathroom: First Floor Bathroom : Tub/Shower Combo Equipment at Home: Chair-Shower;Grab Bars;Cane-Small Base Quad;Walker-2 Wheeled;Walker-4 Wheeled with Seat (pt states she usually uses 2WW) Prior Level of Functioning: Mobility: Ambulate-In Community;Ambulate-In Home ;With Assistive Device Fallen Within 6 Mos: 1 ( I've fall several times. My balance was all off. ) Have Help at Home?: Yes, there is help at home now Who assists you at home?: Friends/Family How often is assistance provided?: PT/OT after fall Oxygen at Home: No Vision: Corrected with glasses Hearing Exceptions: Hearing concerns Who manages medications?: self Pain Assessment: Pain Location #1 Pain Scale/Observation: Numeric (0-10) Pain Rating Score #1: (pt did not quantify) Pain Location : Neck;Back OBJECTIVE: At start of therapy session, patient found in bed and with bed alarm on General Appearance: alert, NAD LDA: IV's: Peripheral line Edema: No edema noted ?? Vitals: (*Assess the 3 levels of oxygen saturations both for room air and 02 unless rest on room air is 88% or less). Rest BP: 148/123 ?? 143/66 (88) HR: 92 Sp02 ?? Sp02 ? Ex/Gait/Activity Without 02 BP: 136/78 (93) HR: 94 Sp02 100% RA Post Activity BP: 136/75 (91) HR: 91 Sp02 ?? Sp02 98% RA Observations: Pt with dizziness upon sitting EOB; symptoms improved with rest and cues for ankle pumps/keeping eyes open. Mental Status/Cognition: Level of Consciousness-Adult: Alert Orientation Level: Oriented X4 Cognition: Processing-Appropriate Attention Span: Appears intact Memory: Appears intact Following Commands: Follows all commands and directions without difficulty Safety Judgement: Decreased awareness of need for safety Awareness of Errors: Decreased awareness of deficits Problem Solving: Assistance required to identify errors made UE ROM: RUE: AROM WFL LUE: AROM WFL Strength: RUE: WFL LUE: WFL UE Tone RUE: no abnormal tone noted LUE: no abnormal tone noted Coordination: intact serial opposition for bilateral hands UE Proprioception RUE: WFL LUE: WFL UE Sensation RUE: intact, no complaints of numbness or tingling LUE: intact, no complaints of numbness or tingling Perception: Inattention/Neglect: Appears intact Initiation: Appears intact Motor Planning: Appears intact Visual/Motor Tracking: Able to track stimulus in all quads w/o difficulty Acuity: WDL Mobility: A gait belt and non-slip socks were used for all out of bed activity this date. Bed Mobility: Supine to Sit: Moderate Assistance;X 2 with HOB in semi-fowlers position Transfers: Sit to Stand: Minimal Assistance Stand to Sit: Minimal Assistance Transfer Device: Gait belt;Walker-2 Wheeled Functional Ambulation: Functional mobility of ambulation to sink/bathroom with minimal assist using wheeled walker. Comments: cues for walker management and safety Balance: Balance Scales/Tests Used: Sitting: Static/Dynamic;Standing: Static/Dynamic Sitting - Static: Good Sitting - Dynamic: Good - Standing - Static: Fair;With Both Upper Extremity's Support Standing - Dynamic: Fair -;With Both Upper Extremity's Support Activities of Daily Living Oral Facial Hygiene: Declined (continue to assess) Lower Body Dressing: Maximal Assistance (don socks) Splint Issued/Checked: none ACTIVITY TOLERANCE: Patient's activity tolerance: fair. Modified Phani: TREATMENT / EDUCATION / INTERVENTIONS: While performing OT, Patient was instructed in:functional mobility training, self-care training, spine precautions , use of call light Presented to patient who demonstrates Good understanding of instructions given. INFORMED CONSENT TO TREATMENT: Plan of care including recommended therapy, goals and frequency, discussed with patient who understands and agrees to proceed. ASSESSMENT: Functional performance limited due to: limited activities of daily living, pain, decreased functional mobility, decreased functional balance and decreased endurance and activity tolerance. Patient continues to benefit from skilled Occupational Therapy to achieve the following functional goals. Short Term Goals: Goal Formation With patient Patient will perform grooming standing at sink and with stand by assist Patient will perform upper extremity dressing with modified independence Patient will perform lower extremity dressing with modified independence Patient will transfer to standard toilet with stand by assist Patient will perform supine to/from sit with stand by assist Patient will perform bed to chair with stand by assist Half-Way Goal(s): Patient to discharge to appropriate next level of inpatient care. Plan: Plan: ADL training Adaptive equipment training Functional transfer training Functional balance training Endurance training Bed mobility training Safety awareness If patient is discharged from the facility, this note serves as a discharge summary if further occupational therapy visits did not occur. Refer to filed flowsheet for further details. Following therapy session, patient left in patient bedside chair, with chair alarm on, with call light within reach, with Migdalia HANCOCK aware. IFIED HEARING INSTRUMENT DISPENSER * Joey Dickens MD - 06/05/2022 6:53 AM CST [facility] Orthopedic Spine Surgery Daily Progress Note Kandace Cole, 72 year old, female : 1950 CSN: [id number] Primary Care Physician: Karrie Phillips MD, MD - Admission Date/Time: 06/04/2022 5:08 AM - Hospital Day: 1 Subjective Patient seen and examined this AM on rounds. No acute orthopaedic events overnight, pain controlled. Denies new numbness/paresthesias. Her arms feel better but she says her legs are moving by herself Vitals Temp (24hrs), Av.3 ??F (36.3 ??C), Min:95.5 ??F (35.3 ??C), Max:97.9 ??F (36.6 ??C) BP 154/53 Pulse 86 Temp 97.6 ??F (36.4 ??C) (Oral) Resp 18 Ht 1.549 m (5' 1 ) Wt 60.5 kg (133 lb 6.4 oz) SpO2 97% Labs Recent Labs Component Name 06/05/22 0458 05/15/22 1352 02/17/22 0612 WBC 10.4 6.6 5.8 HGB 7.1* 9.9* 9.6* HCT 22.1* 30.4* 28.3* PLTCOUNT 273 329 259 Recent Labs Component Name 06/05/22 0458 05/15/22 1352 02/19/22 0429 NA 132* 137 132* POTASSIUM 5.2* 4.6* 4.5 CL 103 103 104 CO2 19* 25 22 BUN 27* 20 18 CREATININE 1.40* 1.53* 1.58* GLUCOSE 107 107 83 Recent Labs Component Name 02/16/22 0757 MAGNESIUM 1.8 PHOS 3.9 No results for input(s): PT, INR in the last 60387 hours. No results for input(s): PTT in the last 06900 hours. Cultures No results found for this or any previous visit (from the past 248 hour(s)). Physical Exam General: Awake, alert, follows commands, in no acute distress Neck: - C-collar/[place] J: Present - Tenderness to palpation: Deferred - ROM: Deferred - HV drain in place Drain output (24 hours, last shift): 290, 100 Bilateral Upper Extremity: - Motor: Right Left Shoulder Abduction Fires, NG due to pain Fires, NG due to pain Elbow Extension 5/5 5/5 Elbow Flexion 5/5 5/5 Wrist Extension 5/5 5/5 Wrist Flexion 5/5 5/5 Finger Flexion 5/5 5/5 Finger Abduction 5/5 5/5 - Sensory: Intact to light touch distally Bilateral Lower Extremity: - Motor: Right Left Hip Flexion 5/5 5/5 Knee Flexion 5/5 5/5 Knee Extension 5/5 5/5 Ankle Dorsiflexion 5/5 5/5 Great Toe Extension 5/5 5/5 Ankle Plantarflexion 5/5 5/5 - Sensation: Intact to light touch distally Assessment/Plan Kandace Cole is a 72 year old female with cervical myelopathy - s/p C5-C6 laminectomies, C4-T2 PISF by Dr. Taylor on 06/04/2022 ??? Activity: Activity as tolerated in C-collar ??? Gabapentin ordered for leg spasms/RLS o If not improved, would recommend neurology consult ??? PT/OT ??? Anticoagulation: SCDs, ambulation ??? Recommend pain control and bowel regimen ??? Antibiotics: periop ancef ??? Wound care: ortho will perform first dressing change ??? Diet: OK from Ortho standpoint ??? Current Dispo: PT/OT ??? Please page Ortho Spine with any questions or concerns Joey Dickens MD 06/05/2022 6:53 AM IFIED HEARING INSTRUMENT DISPENSER Associated attestation - Deon Taylor MD - 06/05/2022 4:23 PM CERTIFIED HEARING INSTRUMENT DISPENSER I have seen and evaluated the patient and agree with the resident's assessment and plan as stated above. I have independently reviewed all imaging studies. Deon Taylor MD * Radha Salcido RN - 06/04/2022 8:58 PM CST Problem: Pain/Discomfort Goal: Patient exhibits reduced pain/discomfort as evidenced by pain scores Outcome: Progressing Goal: Patient uses pharmacological and non-pharmacological pain management strategies. Outcome: Progressing Goal: Patient verbalizes acceptable level of pain relief and ability to engage in desired activity. Outcome: Progressing Problem: Fall Risk Goal: Fall risk and fall related injury risk are minimized (interventions related to the fall risk can be found in the flowsheet documentation) Outcome: Progressing Problem: Ineffective breathing pattern related to obstructive sleep apnea Goal: Maintains optimal sleep pattern, as evidenced by relaxed breathing at normal rate and depth. Outcome: Progressing Goal: Adheres to CPAP (Continuous Positive Airway Pressure) device regimen as prescribed. Outcome: Progressing Problem: Sleep deprivation related to sleep apnea. Goal: Achieves restful, refreshing sleep pattern. Outcome: Progressing IFIED HEARING INSTRUMENT DISPENSER * Yaritza Lynch RN - 06/04/2022 2:46 PM CST Problem: Pain/Discomfort Goal: Patient exhibits reduced pain/discomfort as evidenced by pain scores Outcome: Progressing Goal: Patient uses pharmacological and non-pharmacological pain management strategies. Outcome: Progressing Goal: Patient verbalizes acceptable level of pain relief and ability to engage in desired activity. Outcome: Progressing Problem: Fall Risk Goal: Fall risk and fall related injury risk are minimized (interventions related to the fall risk can be found in the flowsheet documentation) Outcome: Progressing Problem: Ineffective breathing pattern related to obstructive sleep apnea Goal: Maintains optimal sleep pattern, as evidenced by relaxed breathing at normal rate and depth. Outcome: Progressing Goal: Adheres to CPAP (Continuous Positive Airway Pressure) device regimen as prescribed. Outcome: Progressing Problem: Sleep deprivation related to sleep apnea. Goal: Achieves restful, refreshing sleep pattern. Outcome: Progressing IFIED HEARING INSTRUMENT DISPENSER * Padma Morales MD - 06/04/2022 11:51 AM CST Orthopaedic Surgery Postoperative Check Surgery Date: 06/04/2022 Diagnosis: cervical myelopathy Procedure Preformed: Procedure(s): C5-C6 laminectomy, C4-T2 posterior instrumented spinal fusion Subjective Complaints: none Nausea/vomiting: absent Pain: Controlled Postoperative vitals: Patient Vitals for the past 6 hrs: Temp Pulse Resp BP BP Method 06/04/22 0630 -- 86 19 112/62 -- 06/04/22 0622 98 ??F (36.7 ??C) -- -- 105/50 Automatic Physical Exam General appearance: Resting in PACU Bilateral upper extremity: Motor: grossly intact at fingers. Responds to light touch in the distal extremity. Fingers are warm and well perfused, symmetric to contralateral side Bilateral lower extremity: Motor: grossly intact at toes. Responds to light touch in the distal extremity, Toes warm and well perfused distally, symmetric to contralateral. Assessment/Plan Status post Procedure(s): C5-C6 laminectomy, C4-T2 posterior instrumented spinal fusion 1. Activity: as tolerated from ortho perspective in [place] collar 2. PT/OT 3. Pain Control- oral medications 4. DVT Prophylaxis: ambulation, SCDs 5. Drains? HV x1 6. Continue perioperative ancef 7. Admit to floor under Ortho Spine 8. Please page Ortho Spine with any additional questions or concerns Padma Morales MD 06/04/2022 4:23 PM IFIED HEARING INSTRUMENT DISPENSER documented in this encounter H&P Notes * Padma Morales MD - 06/04/2022 5:28 AM CST Orthopedic Spine Surgery H&P Note Kandace Cole, 72 year old, female : 1950 CSN: [id number] Diagnosis/Procedures 1.) Cervical myelopathy Today's Date: 06/04/2022 History Patient seen and examined this AM. Has been NPO since midnight. Ready to proceed to OR today for Cervical four- thoracic two posterior instrumented spinal fusion, Cervical five-six laminectomies Kandace Cole is a 72 year old female with cervical myelopathy. The patient presents today for operative intervention. The patient was last seen in clinic on 05/15/22 and denies any new medical issues since being seen. No fever, chills or recent illnesses. Pertinent ROS otherwise negative. No otherconcerns at this time. Objective not currently . PMHx Past Medical History: Diagnosis Date ??? [...] ??? CARPAL TUNNEL SURGERY Bilateral ??? Cervical Laminectomy ??? Hysterectomy ??? NASAL POLYPECTOMY ??? Rotator Cuff Repair Bilateral ??? ULNAR NERVE TRANSPOSITION Left Social Hx Social History Tobacco Use ??? Smoking status: Never Passive exposure: Never ??? Smokeless tobacco: Never Substance Use Topics ??? Alcohol use: No Family Hx family history is not on file. Allergies Allergies Allergen Reactions ??? Latex ??? Cyclobenzaprine ??? Fluoxetine ??? Naproxen ??? Sulfamethoxazole W-Trimethoprim ??? Eggs ??? Other demeral ??? Urecholine [Bethanechol Chloride] Medications No current facility-administered medications for this encounter. Review of Systems A 12 point review of systems was performed and was negative except for what was mentioned in the HPI Physical Exam General: Alert, cooperative, in no acute distress. CV: RRR, distal pulses equal and symmetric Resp: no increased labor of breathing Musculoskeletal: Bilateral Upper Extremity: - Motor: Shoulder Abduction 4/5 Elbow Extension 5/5 Elbow Flexion 5/5 Wrist Extension 5/5 Wrist Flexion 5/5 Finger Flexion 5/5 Finger Abduction 5/5 - Sensory: intact to light touch Bilateral Lower Extremity: - Motor: Hip Flexion 5/5 Knee Flexion 5/5 Knee Extension 5/5 Ankle Dorsiflexion 5/5 Great Toe Extension 5/5 Ankle Plantarflexion 5/5 - Sensation: intact to light touch distally Imaging - No new imaging Assessment/Plan: 72 year old female with cervical myelopathy 1. In light of the patient's above mentioned injuries, and following discussion of various treatment options, surgical management was elected for treatment of her injury. Following discussion of the indications, contraindications, risks, benefits, and potential complications the patient agreed to the procedure and consent was obtained. 2. Procedure consent form signed and in chart 3. Correct surgical site is marked 4. Proceed to OR today for Cervical four- thoracic two posterior instrumented spinal fusion, Cervical five-six laminectomies 5. Continue NPO, sips with meds OK 6. Hold DVT chemoprophylaxis 7. Pre-op Ancef (2 grams) 8. Type and screen 9. Plan for postop admission 10. Please page with any questions or concerns Padma Morales MD 06/04/2022 5:28 AM IFIED HEARING INSTRUMENT DISPENSER Associated attestation - Deon Taylor MD - 06/04/2022 7:15 AM CERTIFIED HEARING INSTRUMENT DISPENSER I have seen and evaluated the patient and agree with the resident's assessment and plan as stated above. I have independently reviewed all imaging studies. Deon Taylor MD documented in this encounter Consult Notes * Charissa Murphy - 06/06/2022 4:02 PM CSTAssociated Order(s): IP CONSULT TO SNOW BLOWER SW newly assigned and following for placement and disposition. SW acknowledge referral for placement in facility. SW was informed that patient will need rehab. SW made referrals. Continued Care and Services - Admitted Since 06/04/2022 Destination Service Provider Request Status Selected Services Address Phone Fax Patient [facility] - ACUTE REHAB Pending - Request Sent N/A [id number] [facility] [address] -- [facility] ([facility]) Pending - Request Sent N/A [id number] [facility] [address] [phone] -- I[facility] Care Coordination Summer Nanny IFIED HEARING INSTRUMENT DISPENSER * Matilda Bailon RD/CHUY - 06/05/2022 1:28 PM CSTAssociated Order(s): IP CONSULT TO NUTRITIONAL SERV Initial Nutrition Assessment Brief Synopsis: Patient is at Nutrition Risk; Specific criteria can be found in assessment below Nutrition Plan: Continue Consistent CHO diet +Glucerna (220 kcals, 10 g Pro, 26 g CHO) TID w/ meals to aid with kcal and protein intake. Recommendations to Physician: Encourage PO intake of meals and ONS If lytes worse, place pt on renal diet; replete lytes PRN Comments: RD consulted for MST of 3, per nurse nutrition screen. No recent PO intakes documented inchart. Noted pt POD 1 from spinal procedure, per anesthesiology note (06/05). Per weight hx, RD noted6.5% BW loss in 3 months--not significant per ASPEN guidelines. Pt reported poor appetite, but is getting better. Stated that she was able to eat oats this AM for breakfast. Denies N/V/D/C symptoms at this this time. 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 Weight hx limited; RD noted 6.5% BW loss in 3 months; however there are no documented scaling methods. RD unable to validate weight changes at this time. If weight change accurate, it is not significant per ASPEN guidelines. No recent BMs documented this admission. Labs reviewed; noted abnormal lytes. If lytes worsen, recommend to place pt on renal diet; replete lytes PRN. Will continue to monitor and f/u per clinical nutrition guidelines. Assessment: Med/Surg History and Clinical Diagnoses: 72 yo female with PMHx significant for HTN, CKD, DM-2, OA,admitted for elective spinal surgery Height: 154.9 cm (5' 1 ) Weight: 60.5 kg (133 lb 6.4 oz) BMI: Body mass index is 25.21 kg/m??. BMI Range: Normal IBW/lb (Calculated) Female: 105, Recent Weights/Methods 12/09/2009 1128 02/14/2022 2227 02/16/2022 1104 03/13/2022 1252 06/04/2022 0552 Weight: 70.8 kg (156 lb) 70.3 kg (155 lb) 70.3 kg (155 lb) 64.7 kg (142 lb 9.6 oz) 60.5 kg (133 lb 6.4 oz) Weight Method (Utilize Scales): -- Estimated -- -- Standing Wt Comments: reviewed; weight hx indicates 6.5% BW loss in 3 months--not significant per ASPEN guidelines Diet order accuracy Current diet order: Consistent Carb Standard Current supplement order: none Nutrition recommendation: alter/change nutrition order P.O.Intake for the past 48 hrs: No data recorded Supplement(s) Consumed- Last 48 hours None Food Allergies: Eggs GI Concerns: None Chewing/Swallowing: None Pain affecting intake: No Estimated Needs: KCAL: 5092-2260 (25-30 kcal/kg ABW) Protein (g): 90 (1.5 g/kg ABW) Fluid (ml): 1 ml/kcal (fluid as tolerated) Needs based on: Kcal/kg- (Comment) Recommended Access Route: PO Laboratory values: Recent Labs Component Name 06/05/22 0458 05/15/22 1352 02/19/22 0429 02/17/22 0612 02/16/22 0757 02/14/22 2355 BUN 27* 20 18 - 27* 33* CREATININE 1.40* 1.53* 1.58* - 1.77* 1.74* NA 132* 137 132* - 131* 132* POTASSIUM 5.2* 4.6* 4.5 - 5.0* 5.1* CL 103 103 104 - 100 101 CO2 19* 25 22 - 24 22 GLUCOSE 107 107 83 - 88 95 CALCIUM 8.5 9.4 9.1 - 9.6 9.1 PROT - - - - - 6.0 ALB - - - - 3.6 3.4 TBILI - - - - - 0.5 ALKPHOS - - - - - 58 ALT - - - - - 13 AST - - - - - 16 ANIONGAP 15 14 11 - 12 14 BCR 19 13 11 - 15 19 OSMOLALITY 280 287 275 - 277 281 AGRATIO - - - - - 1.3 EGFR 40* 36* 35* - 30* 31* - = values in this interval not displayed. Medications: Current Facility-Administered Medications Medication ??? acetaminophen (Tylenol) tablet 1,000 mg ??? buPROPion SR 12hr (Wellbutrin-SR) tablet 100 mg ??? [START ON 06/06/2022] calcitriol (Rocaltrol) capsule 0.25 mcg ??? carvedilol (Coreg) tablet 6.25 mg ??? dextrose 10 % IV bolus Or ??? dextrose 10 % IV bolus ??? escitalopram (Lexapro) tablet 20 mg ??? furosemide (Lasix) tablet 10 mg ??? gabapentin (Neurontin) capsule 300 mg ??? glucagon (Glucagen) injection 1 mg ??? glucose (Diabetic Use) (Dex4 Glucose) oral liquid ??? glucose (Diabetic Use) oral gel ??? glucose chew tablet 4 tablet ??? insulin lispro (HumaLOG;ADMelog) 100 UNIT/ML pen 0-6 Units ??? latanoprost (Xalatan) 0.005 % ophthalmic solution 1 drop ??? lisinopril (Prinivil; Zestril) tablet 20 mg ??? ondansetron (Zofran) injection 4 mg ??? oxyCODONE (immediate release) (Roxicodone) tablet 5 mg ??? pantoprazole EC (Protonix) tablet 40 mg ??? polyethylene glycol 3350 (Miralax) packet 17 g ??? pravastatin (Pravachol) tablet 40 mg ??? [START ON 06/06/2022] QUEtiapine (SEROquel) tablet 100 mg ??? senna-docusate (Senokot-S) tablet 1 tablet Skin/Wound: Procedure incision to back; Wound to anterior/upper/left arm Education needed: Wound Healing Education Provided: Prior to Discharge Nutrition Care Process (1) Nutrition Diagnostic Statement: Increased nutrient needs related to:: increased demands for wound healing as evidenced by:: estimated protein needs ..;estimated energy needs ..;loss of skin integrity Nutrition Diagnostic Statement Progress: New diagnostic statement established Nutrition Intervention: Meals and snacks:;Medical Food Supplements: Monitoring: PO intake, WT, labs, medications Evaluation: Nutrition Goal: Total intake will meet estimated nutrient needs Nutrition Goal Timeframe: Ongoing Nutrition Goal Progress: New goal established Ascom: [id number] IFIED HEARING INSTRUMENT DISPENSER * Adolph Juarez, ENGINEERING AGENT-LITHOGRAPHIC PROOFER - 06/04/2022 2:17 PM CSTAssociated Order(s): IP CONSULT TO GERIATRIC MEDICINE GERIATRIC MEDICINE NEW CONSULT NOTE 06/04/2022 2:17 PM Reason for Consult: Geriatric evaluation Consulting Physician and Team: 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 Geriatrics consulted this afternoon given today's surgery and age. No acute medical concerns at this time per primary team. PMH includes CKD, anemia, htn, OA, DM II, glaucoma, htn, OA Examined this afternoon with brother at bedside. Still groggy after surgery. Reports 10 neck pain. Last BM was yesterday. Comprehensive Geriatric Assessment: Social: Lives at home with grandson in [facility]. Does not smoke or drink. Has 1 child and . Falls: Reports multiple falls over the last few months. Weight loss: yes has lost about 30 lbs over the last 6 months due to Barretts esophagus. Has been following with PCP about this Orthostatic: Gets dizzy Incontinence: Denies Vision/Hearing Problems: Denies Medication Review: ??? acetaminophen (Tylenol) 325 MG tablet ??? artificial tears ophthalmic solution ??? buPROPion SR 12hr (Wellbutrin-SR) 100 MG tablet ??? calcitriol (Rocaltrol) 0.25 MCG capsule ??? carvedilol (Coreg) 6.25 MG tablet ??? citalopram (CeleXA) 20 MG tablet ??? escitalopram (Lexapro) 20 MG tablet ??? Exenatide ER (Bydureon BCise) 2 MG/0.85ML AUIJ ??? furosemide (Lasix) 20 MG tablet ??? latanoprost (Xalatan) 0.005 % ophthalmic solution ??? lisinopril (Prinivil; Zestril) 20 MG tablet ??? meclizine (Antivert) 25 MG tablet ??? pantoprazole EC (Protonix) 40 MG tablet ??? pravastatin (Pravachol) 40 MG tablet ??? QUEtiapine (SEROquel) 200 MG tablet ??? saline nasal spray ([place]; [place]) 0.65 % nasal spray RCS: Memory very good. (0-5 suggests dementia; 6-7 mild cognitive impairment; 8- 10 normal) GDS: Has a long hx of depression. SNAQ: Eats 2-3 small meals daily (A score <14 indicates significant risk of at least 5% weight loss within 6 months) ADL: Independent IADL: Stopped driving due to neck pain CONFUSION ASSESSMENT METHOD 1) Acute onset or fluctuating course: No 2) Inattention: No 3) Disorganized thinking: No 4) Altered Level of Consciousness: No Level of Consciousness: Alert Delirium is suggested if criteria #1 & #2 are positive PLUS criteria #3 OR #4 Is deliirum suggested: no Past Medical History: Past Medical History: Diagnosis Date ??? Anemia ??? Ferrell's esophagus ??? CKD (chronic kidney disease), stage III (CMS/HCC) ??? Diabetes ??? Disease of esophagus ??? Fibromyalgia ??? Glaucoma ??? HTN (hypertension) ??? Macular degeneration ??? Osteoarthritis ??? Raynaud disease ??? Sleep apnea ??? Ulnar neuropathy Past Surgical History: Past Surgical History: Procedure Laterality Date ??? Back Surgery lumbar and sacral laminectomy ??? CARPAL TUNNEL SURGERY Bilateral ??? Cervical Laminectomy ??? Hysterectomy ??? NASAL POLYPECTOMY ??? Rotator Cuff Repair Bilateral ??? ULNAR NERVE TRANSPOSITION Left Home Medications: No current facility-administered medications on file prior to encounter. Current Outpatient Medications on File Prior to Encounter Medication Sig Dispense Refill ??? acetaminophen (Tylenol) 325 MG tablet Take 2 (two) tablets by mouth every 6 hours as needed Maximum allowable Acetaminophen amount = 4 Grams (4000 mg) / 24 hours. ??? artificial tears ophthalmic solution Instill 1 (one) drop into both eyes every 4 hours as needed 4 mL 0 ??? buPROPion SR 12hr (Wellbutrin-SR) 100 MG tablet Take 1 (one) tablet by mouth 2 times daily ? ? calcitriol (Rocaltrol) 0.25 MCG capsule Take 1 (one) capsule by mouth every Saturday, Saturday & Saturday ??? carvedilol (Coreg) 6.25 MG tablet Take 1 (one) tablet by mouth 2 times daily ??? citalopram (CeleXA) 20 MG tablet Take 1 (one) tablet by mouth once daily (Patient not taking: Reported on 06/04/2022) ??? escitalopram (Lexapro) 20 MG tablet Take 1 (one) tablet by mouth once daily ??? Exenatide ER (Bydureon BCise) 2 MG/0.85ML AUIJ Bydureon BCise 2 mg/0.85 mL subcutaneous auto-injector INJECT 2 MG SUBCUTANEOUS EVERY WEEK ??? furosemide (Lasix) 20 MG tablet Take 0.5 (one-half) tablet by mouth once daily ??? latanoprost (Xalatan) 0.005 % ophthalmic solution ??? lisinopril (Prinivil; Zestril) 20 MG tablet Take 1 (one) tablet by mouth once daily ??? meclizine (Antivert) 25 MG tablet meclizine 25 mg tablet 1 po tid prn ??? pantoprazole EC (Protonix) 40 MG tablet Take 1 (one) tablet by mouth once daily ??? pravastatin (Pravachol) 40 MG tablet pravastatin 40 mg tablet TAKE 1 TABLET BY MOUTH DAILY ??? QUEtiapine (SEROquel) 200 MG tablet Take 1 (one) tablet by mouth once daily ??? saline nasal spray ([place]; [place]) 0.65 % nasal spray [place] 1 (one) spray into each nostril as needed for Dry Nose 15 mL 0 Current Medications: ??? acetaminophen 650 mg Oral q4h ??? buPROPion SR 12hr 100 mg Oral BID ??? [START ON 06/06/2022] calcitriol 0.25 mcg Oral MON, WED AND FRI ??? carvedilol 6.25 mg Oral BID ??? ceFAZolin 2 g Intravenous q8h ??? escitalopram 20 mg Oral QDAY ??? [START ON 06/05/2022] furosemide 10 mg Oral QDAY ??? insulin aspart 0-6 Units Subcutaneous TID WC ??? latanoprost 1 drop Each Eye AT BEDTIME ??? [START ON 06/05/2022] lisinopril 20 mg Oral QDAY ??? pantoprazole EC 40 mg Oral QDAY ??? pravastatin 40 mg Oral AT BEDTIME ??? QUEtiapine 100 mg Oral BID ??? senna-docusate 1 tablet Oral QDAY Allergies: Allergies Allergen Reactions ??? Latex ??? Cyclobenzaprine ??? Fluoxetine ??? Naproxen ??? Sulfamethoxazole W-Trimethoprim ??? Eggs ??? Other demeral ??? Urecholine [Bethanechol Chloride] Social History: Social History Socioeconomic History ??? Marital status: Spouse name: Not on file ??? Number of children: Not on file ??? Years of education: Not on file ??? Highest education level: Not on file Occupational History ??? Not on file Tobacco Use ??? Smoking status: Never Passive exposure: Never ??? Smokeless tobacco: Never Vaping Use ??? Vaping Use: Never used Substance and Sexual Activity ??? Alcohol use: No ??? Drug use: Never Comment: cbd gummies twice a day ??? Sexual activity: Not Currently Other Topics Concern ??? Not on file Social History Narrative ??? Not on file Social Determinants of Health Financial Resource Strain: Not on file Food Insecurity: No Food Insecurity ??? Worried About Running Out of Food in the Last Year: Never true ??? Ran Out of Food in the Last Year: Never true Transportation Needs: Not on file Stress: Not on file Housing Stability: Not on file Family History: NC Review of Systems: General: denies recent illness HEENT: denies hearing impairment PULM: denies SOB or cough CARDIO: denies CP palpitations GI: denies N/V or abd pain. BM yesterday : denies dysuria MSK: reports neck pain NEURO: denies SWAN or vision changes PSYCH: reports long hx of depression. OBJECTIVE Vitals: Patient Vitals for the past 6 hrs: Temp Pulse Resp BP BP Method 06/04/22 1319 97.6 ??F (36.4 ??C) 94 16 123/52 -- 06/04/22 1255 -- 92 17 128/55 -- 06/04/22 1250 -- 90 20 135/57 -- 06/04/22 1245 -- 92 9 137/66 -- 06/04/22 1240 97.6 ??F (36.4 ??C) 96 17 134/59 -- 06/04/22 1235 -- 91 30 134/58 -- 06/04/22 1230 -- 89 (!) 8 135/60 -- 06/04/22 1229 -- 89 (!) 8 149/64 -- 06/04/22 1225 -- 89 24 149/64 -- 06/04/22 1220 -- 92 (!) 7 151/61 -- 06/04/22 1215 -- 89 15 143/63 -- 06/04/22 1210 -- 86 21 144/60 -- 06/04/22 1205 -- 85 15 134/67 -- 06/04/22 1200 -- 88 11 157/71 -- 06/04/22 1155 -- 89 13 161/68 -- 06/04/22 1150 -- 87 13 161/77 -- 06/04/22 1145 (!) 95.5 ??F (35.3 ??C) 87 13 174/76 Automatic Intake/Output Summary (Last 24 hours) at 06/04/2022 1417 Last data filed at 06/04/2022 1229 Gross per 24 hour Intake 3000 ml Output 515 ml Net 2485 ml Weight: Wt Readings from Last 2 Encounters: 06/04/22 60.5 kg (133 lb 6.4 oz) 05/15/22 61.6 kg (135 lb 12.8 oz) Physical Exam: General: NAD, sleepy pleasant HEENT: PERRL Neck: Cervical collar Pulm: CTA-B Cardio: RRR, S1S2 normal. Abdomen: Soft, NT, ND. BS x 4 normoactive Extremity: No edema Neuro: A & O x 3. Able to say days of week backwards. Non focal Skin: Warm and dry Labs: CBC: Recent Labs Component Name 05/15/22 1352 02/17/22 0612 02/16/22 0757 WBC 6.6 5.8 5.7 HGB 9.9* 9.6* 10.5* BMP: Recent Labs Component Name 05/15/22 1352 02/19/22 0429 02/18/22 1218 NA 137 132* 129* CL 103 104 98 CO2 25 22 21* BUN 20 18 19 CREATININE 1.53* 1.58* 1.55* Recent Labs Component Name 05/15/22 1352 02/19/22 0429 02/18/22 1218 02/17/22 0612 02/16/22 0757 CALCIUM 9.4 9.1 9.5 - 9.6 PHOS - - - - 3.9 - = values in this interval not displayed. LFT: Recent Labs Component Name 02/16/22 0757 02/14/22 2355 PROT - 6.0 ALB 3.6 3.4 ALKPHOS - 58 AST - 16 ALT - 13 Coagulation: No results for input(s): PT, INR, APTT in the last 36010 hours. Cardiac markers: Recent Labs Component Name 02/14/22 2355 TROPONINI 0.027 ASSESSMENT & RECOMMENDATIONS Cervical fusion /6 -Postop today doing well. Pain under control 08/08 -Schedule tylenol 650mg q 6 hrs -Lidoderm patch -PRN oxycodone 5mg q 6 hrs -PT/OT -Up in chair for meals -Daily senna and miralax Recurrent Falls -Reports multiple falls over the last few months. Possibly due to polypharmacy? Cervical myelopathy -Check orthostatics Depression -Okay to resume wellbutrin and lexapro -Use caution with antipsychotics in the elderly. Reports taking seroquel at night for sleep/depression. HTN -Reports taking lasix for htn. Would hold this and likely can be d/c'd -Hold lisinopril -Okay to resume coreg. DM II -Hgba1c 5.1 in Feb 20 -Check Hgba1c -Can likely Stop Bydureon at discharge pending a1c -Humalog SSI TID with meals -Regular diet -Goal sugars 120-180 Weight loss -Reports she has lost ~30lbs over the last 6 months due to Barretts. Has been following PCP regarding this. Resume PPI. Will need further evaluation -Last TSH 1.522 in February 20 #Risk of delirium -Currently not delirious but at risk given recent surgery, limited mobility, disturbed sleep/wake cycle. -Use caution with muscle relaxors in the elderly as they are highly deliriogenic. Delirium Recommendations: Delirium is a morbid condition, associated with mortality. It's preventable. - daily CAM assessment - minimize tethers (eg re-assess need for Ramos daily) - Miralax for prevention of constipation if on opioids - early mobilization - Avoid sedative hypnotics/anticholniergics. Avoid narcotics - Ensure adequate pain control. - Address sensory deficits. Vision and hearing - Provide orienting stimuli: Clock, calendar, minimal staff changes, light during the day, dark at night - please place the following orders in a nursing communication: ?? up in chair with meals TID if activity orders allow ?? blinds up and lights on in the AM. ?? daily family visits ?? Minimize nocturnal disturbances. Avoid unnecessary labs, VS, medications at night. Promote regular sleep/wake cycle ?? Optimize nutritional status. Ensure supplements TID between meals if needed PT/OT recs: Pending Transferring to [facility] team 06/05 at 0700 Thank you for this consult. We will continue to follow along with you. Please call with questions. Please note, recommendations are not final until co-signed/attested by attending Patient was seen and discussed with attending, Dr. Favio Juarez, ANP-, Geriatrics 06/04/2022 2:17 PM Pager: [phone] IFIED HEARING INSTRUMENT DISPENSER Associated attestation - Dorothy Stahl MD - 06/04/2022 10:04 PM CERTIFIED HEARING INSTRUMENT DISPENSER I have verified the documentation of the WAGON DRILLER including all history, exam, and medical decision-making details. I have personally performed a physical exam and have personally reviewed the data to support my medical decision-making as outlined in the resident's note, and I arrive independently at thesame conclusion. We discussed the recommendation and educated the patient at the bedside. I agree with note and plan as documented to include my note below: Reason for Consult: Co-management of geriatric patient s/p elective spinal surgery Consulting Physician and Team: Dr. Taylor HPI: Ms Cole is a 72 yo female with PMHx significant for HTN, CKD, DM-2, OA, admitted for elective spinal surgery. Seen immediately post op, still groggy form anesthesia effect. Patient states she is feeling better but still weak, complains of pain in her back, appetite without changes, mood stable. No mouth pain or dysphagia. No fever, no chills, no SOB/cough/sputum, no abdominal distention, no nausea/emesis, BM are positive without diarrhea, adequate diuresis without ramos, no LED edema, no joint pain/sinovitis, no skin lesions. Comprehensive Geriatric Assessment: Social: Lives at home with grandson in [facility]. Does not smoke or drink. Has 1 child and . Falls: Reports multiple falls over the last few months. Weight loss: yes has lost about 30 lbs over the last 6 months due to Barretts esophagus. Has been following with PCP about this Orthostatic: Gets dizzy Incontinence: Denies Vision/Hearing Problems: Denies Medication Review: acetaminophen (Tylenol) 325 MG tablet artificial tears ophthalmic solution buPROPion SR 12hr (Wellbutrin-SR) 100 MG tablet calcitriol (Rocaltrol) 0.25 MCG capsule carvedilol (Coreg) 6.25 MG tablet citalopram (CeleXA) 20 MG tablet escitalopram (Lexapro) 20 MG tablet Exenatide ER (Bydureon BCise) 2 MG/0.85ML AUIJ furosemide (Lasix) 20 MG tablet latanoprost (Xalatan) 0.005 % ophthalmic solution lisinopril (Prinivil; Zestril) 20 MG tablet meclizine (Antivert) 25 MG tablet pantoprazole EC (Protonix) 40 MG tablet pravastatin (Pravachol) 40 MG tablet QUEtiapine (SEROquel) 200 MG tablet saline nasal spray ([place]; [place]) 0.65 % nasal spray RCS: Memory very good. (0-5 suggests dementia; 6-7 mild cognitive impairment; 8- 10 normal) GDS: Has a long hx of depression. SNAQ: Eats 2-3 small meals daily (A score <14 indicates significant risk of at least 5% weight loss within 6 months) ADL: Independent IADL: Stopped driving due to neck pain CONFUSION ASSESSMENT METHOD 1) Acute onset or fluctuating course: No 2) Inattention: No 3) Disorganized thinking: No 4) Altered Level of Consciousness: No Level of Consciousness: AOX3 Delirium is suggested if criteria #1 & #2 are positive PLUS criteria #3 OR #4 Is delirium suggested No Past Medical History: Past Medical History: Diagnosis Date Anemia Ferrell's esophagus CKD (chronic kidney disease), stage III (CMS/HCC) Diabetes Disease of esophagus Fibromyalgia Glaucoma HTN (hypertension) Macular degeneration Osteoarthritis Raynaud disease Sleep apnea Ulnar neuropathy Past Surgical History: Past Surgical History: Procedure Laterality Date Back Surgery lumbar and sacral laminectomy CARPAL TUNNEL SURGERY Bilateral Cervical Laminectomy Hysterectomy NASAL POLYPECTOMY Rotator Cuff Repair Bilateral ULNAR NERVE TRANSPOSITION Left Home Medications: No current facility-administered medications on file prior to encounter. Current Outpatient Medications on File Prior to Encounter Medication Sig Dispense Refill acetaminophen (Tylenol) 325 MG tablet Take 2 (two) tablets by mouth every 6 hours as needed Maximumallowable Acetaminophen amount = 4 Grams (4000 mg) / 24 hours. artificial tears ophthalmic solution Instill 1 (one) drop into both eyes every 4 hours as needed 4 mL 0 buPROPion SR 12hr (Wellbutrin-SR) 100 MG tablet Take 1 (one) tablet by mouth 2 times daily calcitriol (Rocaltrol) 0.25 MCG capsule Take 1 (one) capsule by mouth every Saturday, Saturday &Saturday carvedilol (Coreg) 6.25 MG tablet Take 1 (one) tablet by mouth 2 times daily citalopram (CeleXA) 20 MG tablet Take 1 (one) tablet by mouth once daily (Patient not taking: Reported on 06/04/2022) escitalopram (Lexapro) 20 MG tablet Take 1 (one) tablet by mouth once daily Exenatide ER (Bydureon BCise) 2 MG/0.85ML AUIJ Bydureon BCise 2 mg/0.85 mL subcutaneous auto-injector INJECT 2 MG SUBCUTANEOUS EVERY WEEK furosemide (Lasix) 20 MG tablet Take 0.5 (one-half) tablet by mouth once daily latanoprost (Xalatan) 0.005 % ophthalmic solution lisinopril (Prinivil; Zestril) 20 MG tablet Take 1 (one) tablet by mouth once daily meclizine (Antivert) 25 MG tablet meclizine 25 mg tablet 1 po tid prn pantoprazole EC (Protonix) 40 MG tablet Take 1 (one) tablet by mouth once daily pravastatin (Pravachol) 40 MG tablet pravastatin 40 mg tablet TAKE 1 TABLET BY MOUTH DAILY QUEtiapine (SEROquel) 200 MG tablet Take 1 (one) tablet by mouth once daily saline nasal spray ([place]; [place]) 0.65 % nasal spray [place] 1 (one) spray into each nostril as needed for Dry Nose 15 mL 0 Current Medications: acetaminophen 650 mg Oral q4h buPROPion SR 12hr 100 mg Oral BID [START ON 06/06/2022] calcitriol 0.25 mcg Oral MON, WED AND FRI carvedilol 6.25 mg Oral BID ceFAZolin 2 g Intravenous q8h escitalopram 20 mg Oral QDAY [START ON 06/05/2022] furosemide 10 mg Oral QDAY insulin aspart 0-6 Units Subcutaneous TID WC latanoprost 1 drop Each Eye AT BEDTIME [START ON 06/05/2022] lisinopril 20 mg Oral QDAY pantoprazole EC 40 mg Oral QDAY pravastatin 40 mg Oral AT BEDTIME QUEtiapine 100 mg Oral BID senna-docusate 1 tablet Oral QDAY Allergies: Allergies Allergen Reactions Latex Cyclobenzaprine Fluoxetine Naproxen Sulfamethoxazole W-Trimethoprim Eggs Other demeral Urecholine [Bethanechol Chloride] Social History: Social History Socioeconomic History Marital status: Spouse name: Not on file Number of children: Not on file Years of education: Not on file Highest education level: Not on file Occupational History Not on file Tobacco Use Smoking status: Never Passive exposure: Never Smokeless tobacco: Never Vaping Use Vaping Use: Never used Substance and Sexual Activity Alcohol use: No Drug use: Never Comment: cbd gummies twice a day Sexual activity: Not Currently Other Topics Concern Not on file Social History Narrative Not on file Social Determinants of Health Financial Resource Strain: Low Risk Difficulty of Paying Living Expenses: Not hard at all Food Insecurity: No Food Insecurity Worried About Running Out of Food in the Last Year: Never true Ran Out of Food in the Last Year: Never true Transportation Needs: No Transportation Needs Lack of Transportation (Medical): No Lack of Transportation (Non-Medical): No Stress: No Stress Concern Present Feeling of Stress : Not at all Housing Stability: Low Risk Unable to Pay for Housing in the Last Year: No Number of Places Lived in the Last Year: 1 Unstable Housing in the Last Year: No Family History: Not contributing Review of Systems: General: denies recent illness or weight loss. HEENT: denies hearing impairment PULM: denies SOB or cough CARDIO: denies CP palpitations GI: denies N/V or abd pain. BM yesterday : denies dysuria MSK: reports neck pain NEURO: denies SWAN or vision changes PSYCH: reports long hx of depression. Vitals: Patient Vitals for the past 6 hrs: Temp Pulse Resp BP BP Method 06/04/224 -- 86 -- 142/61 -- 06/04/22 1946 97.5 ??F (36.4 ??C) 89 20 141/60 Automatic Intake/Output Summary (Last 24 hours) at 06/04/2022 2146 Last data filed at 06/04/2022 2045 Gross per 24 hour Intake 3000 ml Output 665 ml Net 2335 ml Weight: Wt Readings from Last 2 Encounters: 06/04/22 60.5 kg (133 lb 6.4 oz) 05/15/22 61.6 kg (135 lb 12.8 oz) Physical Exam: General: NAD, well developed, well nourished HEENT:NC/ in C-collar, EOMI. PERRLA Neck:No JVD/Thyroidmegaly/lymphadenopathy Pulm: CTA-B. No WRR Cardio: RRR, S1S2 normal. No MRG Abdomen:Soft, NT, ND. BS x 4 normoactive Extremity: No c/c/e Neuro: CN 2-12 grossly intact. A & O x 3. Able to say days of week backwards. Posterior Drain in place Skin: Warm and dry Labs: CBC: Recent Labs Component Name 05/15/22 1352 02/17/22 0612 02/16/22 0757 WBC 6.6 5.8 5.7 HGB 9.9* 9.6* 10.5* BMP: Recent Labs Component Name 05/15/22 1352 02/19/22 0429 02/18/22 1218 NA 137 132* 129* CL 103 104 98 CO2 25 21* BUN CREATININE 1.53* 1.58* 1.55* Recent Labs Component Name 05/15/22 1352 02/19/22 0429 02/18/22 1218 02/17/22 0612 02/16/22 0757 CALCIUM 9.4 9.1 9.5 - 9.6 PHOS - - - - 3.9 - = values in this interval not displayed. LFT: Recent Labs Component Name 02/16/22 0757 02/14/22 2355 PROT - 6.0 ALB 3.6 3.4 ALKPHOS - 58 AST - 16 ALT - 13 Coagulation: No results for input(s): PT, INR, APTT in the last 38607 hours. Cardiac markers: Recent Labs Component Name 02/14/22 2355 TROPONINI 0.027 Microbiology: Non new Imaging: Non new Assessment and Plan Elective spinal surgery: -Remains stable after surge -PT/OT with orthostatic vital check once cleared by ortho spine surgery. -Out of bed as early as able once cleared by ortho spine surgery. -Tylenol, PRN Oxy for pain. -Pulmonary toilet with incentive spirometry. -Senna Miralax for bowel while on opioids. -CM for disposition CKD/Anemia/CKD-MBD: -Scr at b/l. -Hgb is low ~ 9.9, monitor for now. -Was on calcitriol as Op. Obtain iPTH, phos, calcium and Vit D level. -May need OP nephrology f/u for CKD-MBD. Delirium prevention: -Not delirious at the moment put remains at risk due to pain, surgery and hospital admission. -Delirium Recommendations: -Minimize nocturnal disturbances. Avoid unnecessary labs, VS, medications at night. Promote regularsleep/wake cycle -Provide orienting stimuli: Clock, calendar, minimal staff changes, light during the day, dark at night -Avoid sedative hypnotics/anticholniergics. Avoid narcotics -Ensure adequate pain control. -Address sensory deficits. Vision and hearing -Optimize nutritional status. Ensure supplements TID between meals if needed -Ensure no bowel/bladder retention -Minimize use of tubes and drains -Avoid physical restraints to manage behavioral symptoms as they only worsen agitation -Mobilize. Should be out of bed TID with meals - Allow family at bedside as much as possible. Familiar faces help manage delirium -Bladder/Bowel care; frequent bladders scans; straight catheter for PVR>500 ml. Bowel regiment (Miralax, senna). -Falls/Aspiration precautions. -Rest of plan per WAGON DRILLER note. Thank you for this consult. We will continue to follow along with you. Please call with questions. Keely Stahl MD Geriatric attending Pager: [phone] documented in this encounter OR Notes * Brief Op Note - Padma Morales MD - 06/04/2022 8:42 AM CST Brief Op Note Procedure: C5-C6 laminectomy, C4-T2 posterior instrumented spinal fusion Patient Name: Kandace Cole Date of Service: 06/04/2022 Pre-Op Diagnosis: cervical myelopathy Post-Op Diagnosis: Same as above Surgeon(s) and Role: * Deon Taylor MD - Primary Ekg Tech(s): Padma Morales MD - Resident - Assisting Blayne Pan MS4 Anesthesia Type: general ETT Complications: none Findings: C4-T2 posterior instrumented spinal fusion in the setting of previous anterior fusion. Underwent laminectomies at C5-6. EBL: 225 mL Urine Output : 250 mL IV Fluid Intake: Please see anesthesia record Drains: Drain 1 Accordian Right Back (Active) Specimen(s): * No specimens in log * Implant(s): Implant Name Type Inv. Item Serial No. Building Carpenter Lot No. [id number] No. Used Action Jean Bone Void 10Ml Dbm Grftn Algrf Ptty Jean Bone Void 10Ml Dbm Grftn Algrf Ptty Medtronic [employer] [id number] N/A 1 Implanted Jean Bone Void 10Ml Dbm Grftn Algrf Ptty Jean Bone Void 10Ml Dbm Grftn Algrf Ptty Medtronic Inc [id number] N/A 1 Implanted Graft Bone Canc 4-9.5Mm 15Cc Frzdr Chp Graft Bone Canc 4-9.5Mm 15Cc Frzdr Chp Allosource [id number] 1 Implanted Graft Bone Canc 4-9.5Mm 30Cc Algrf Frzdr Graft Bone Canc 4-9.5Mm 30Cc Algrf Frzdr Allosource [id number] N/A 1 Implanted 3.5 x 14mm screw Synthes Spine N/A 4 Implanted 4.0x 20mm screw Synthes Spine N/A 2 Implanted 5.0 x 24mm screw Synthes Spine N/A 2 Implanted 4.5 x 26mm screw Synthes Spine N/A 2 Implanted screw caps Synthes Spine N/A 10 Implanted 90mm rods Synthes Spine N/A 2 Implanted Padma Morales MD IFIED HEARING INSTRUMENT DISPENSER * Operative - Deon Taylor MD - 06/04/2022 8:42 AM CST Kandace Maria Douglas 1950 Date of Surgery 06/04/22 PREOPERATIVE DIAGNOSIS: cervical myelopathy POSTOPERATIVE DIAGNOSIS: same PROCEDURES: 1. Cervical Laminectomy C5/6 with partial medial facetectomies (30286) 2. Posterior Arthrodesis C4-T2 (76568, [id number]) 3. Posterior instrumentation C4-T2 (54003) 4. Application of local autograft and allograft (, ) 5. Application and removal of cranial tongs () SURGEON: Deon Taylor MD FAMILY LIFE COUNSELOR: Varun Matute MD ANESTHESIA: General. COMPLICATIONS: None. EBL: 200ml IMPLANTS: Depuy symphony: Screws: C4: 3.5 x 14mm C5: 3.5 x 14mm C7: 4.0 x 20mm T1: 5.0 x 24mm T2: 4.5 x 26mm 3.5 Ti Rods INDICATIONS FOR PROCEDURE: 70-year-old female with signs and symptoms of worsening myelopathy including difficulty with balance and loss of hand manual dexterity. MRI and CT scans of her neck demonstrate history of previous C5-6 ACDF with pseudoarthrosis and continued osteophyte formation with stenosis at this level. She does have multiple levels of autofusion essentially from C3-C5 and has significant spondylosis below this. We have discussed potential surgical intervention due to her worsening myelopathic symptoms. Given her overall alignment I recommende a decompression from C5-6 for treatment of myelopathy with fusion from C4-T2 to prevent distal junctional kyphosis. Today I discussed the surgery in detail as well as the recovery period. We discussed the risks and benefits of the planned procedure including but not limited to bleeding with possible need for transfusion, infection, damage to surrounding structures including neural elements and nearby vascular structures, CSF leak, radiculitis, nerve palsy, malunion, nonunion, need for further surgery, blood clots, PE, stroke, OK,paralysis, . After we reviewed of the risks and benefits the patient wished to proceed with the surgery as planned. DESCRIPTION OF PROCEDURE: The patient was identified in the preoperative holding area where her identity was confirmed and the surgical site was marked. She was then rolled back to the operating roomwhere general endotracheal anesthesia was administered by the anesthesia team. After the appropriate lines and leads were placed Naik-Xfire tongs were positioned over the center rotation of the skull and tightened to the manufactures recommended torque setting. The patient was then carefully rolled to a prone position on the open Rudy table where care was taken to pad all bony prominences. The head was suspended with 10 pounds of inline traction 5 pounds with more posteriorly directed traction and a by vector traction set up. The face was then gently supported with a foam pillow in the C- Flex. Care was taken to ensure all bony prominences were well padded and the arms were well paddedand tucked gently at the sides. Tape was applied to the shoulders and gently pulled inferiorly to allow better x-ray imaging of the cervical spine. Motor and sensory baselines were obtained demonstrating monitorable signals in all 4 extremities. The cervical spine was then prepped and draped in usual sterile fashion. 2 g of Ancef were given within 30 minutes of incision. Timeout was performed. Incision was then marked on the skin extending from approximately the spinous process of C3 to the spinous process of T2 this was incised sharply with a 10 blade and careful cautery dissection was carried down through the subcutaneous fat and deep fascia to expose the spinous processes lamina and lateral masses of C4-T2. The wound was then copiously irrigated. A bur was used to juan the start pointsover the pedicles of C7-T1 and T2 and fluoroscopic imaging was used to confirm appropriate placement of our start points. At C7 a sharp tap was then advanced down through the pedicle into the vertebral body. The screw tract was tapped with a ball-tipped probe to confirm solid anterior endpoint and no breach of the pedicle pérez. We then inserted 4.0 x 20 mm screws bilaterally at the C7 pedicles with excellent purchase. At T1 and T2 a gearshift was advanced down the pedicles bilaterally into thevertebral body. The pedicle tract was palpated with a ball-tipped probe to confirm no breach of thepedicle pérez and a solid anterior endpoint. The screw tracts were tapped with the appropriate sized tap and then appropriately sized screws (see above for sizes) were inserted all with excellent purchase. Fluoroscopic imaging confirmed appropriate placement of our screws. Motor and sensory signalsremained stable after placement of our screws. A bur was then used to juan the center points of thelateral masses of C4 and C5. A drill with a 14 mm tap was used to drill parallel to the lateral masses and directed about 15 degrees laterally in the C4 and C5 lateral mass bilaterally. We then inserted the C4 and C5 screws through the predrilled holes both with excellent purchase. The wound was then copiously irrigated. Fluoroscopic imaging again confirmed appropriate placement of all of her screws. A rongeur was used to remove the inner spinous ligaments between C4-5 and C6-7. Burs were thenused to create troughs at the lamina lateral mass junction bilaterally of C5 and C6. Towel clamps were then carefully applied to the spinous processes of C5 and C6 and gently pulled posteriorly whilea Balaji and Andrea 2 were used to divide the ligamentum flavum freeing the C5 and C6 lamina which were removed en bloc and a lobster tail fashion and passed off to the back table to be used as autograft. The Kerrison was used to continue our decompression laterally around the medial facets at C5-6 performing foraminotomies at this level. This point the spinal cord could be visualized to be decompressed and there was no noted CSF leakage. The wound was once again copiously irrigated. Rods ofthe appropriate length were selected and carefully contoured to sit within the tulips of the screws. The rods were then secured to the screws using set caps which were final tightened using the manufacturerer's torque limiting wrench. A bur was used to decorticate the exposed surface of the lateralmasses and in particular the C5-6 facet joints. A rongeur was used to remove the spinous process ofC7 and T1 to allow for better wound closure and to provide more autograft. A combination of autograft DBM and allograft chips were combined and carefully packed into the lateral gutters and into the C5-6 facet joints which have been decorticated. Vancomycin powder was sprinkled in the wound and a deep drain was placed. Final motor and sensory signals were obtained which were stable and final fluoroscopic imaging was obtained demonstrating appropriate alignment and position of her hardware. The wound was then closed in a layered fashion with #1 Vicryl to the deep muscle and fascial layer. The skin was closed with 2-0 Vicryl's and luba. The drain was secured with a 2-0 nylon. Sterile dressing was applied and the drapes were removed. Cervical collar was placed and the patient was carefully rolled back in the hospital bed where her Naik-Wells tongs were removed and she was extubated without complication and rolled to PACU in stable condition. I was present for all critical portions of the surgical procedure. Neuromonintoring MEPs and SSEPs remained stable throughout. Deon Taylor MD IFIED HEARING INSTRUMENT DISPENSER documented in this encounter Plan of Treatment Upcoming Encounters Date Type Department Care Team (Late st Contact Info) Description 06/02/2024 1:45 PM CERTIFIED HEARING INSTRUMENT DISPENSER Office Visit [facility] - Orthopedics [address] [place] [address], [place] [address] Deon Taylor MD [address] [place] [id number] documented as of this encounter Procedures Procedure Name Priority Date/Time Associated Diagnosis Comments XR THORACIC SPINE 2VW Routine 07/18/2022 11:04 AM CDT Degeneration of cervical intervertebral disc GLUCOSE - POINT OF CARE Routine 06/08/2022 7:47 AM CERTIFIED HEARING INSTRUMENT DISPENSER CBC W/O DIFFERENTIAL Routine 06/08/2022 2:13 AM CERTIFIED HEARING INSTRUMENT DISPENSER Degeneration of cervical intervertebral disc BASIC METABOLIC PANEL (CALCIUM TOTAL) Routine 06/08/2022 2:13 AM CERTIFIED HEARING INSTRUMENT DISPENSER Degeneration of cervical intervertebral disc PHOSPHORUS BLOOD Routine 06/08/2022 2:13 AM CERTIFIED HEARING INSTRUMENT DISPENSER MAGNESIUM BLOOD Routine 06/08/2022 2:13 AM CERTIFIED HEARING INSTRUMENT DISPENSER GLUCOSE - POINT OF CARE Routine 06/07/2022 11:25 PM CERTIFIED HEARING INSTRUMENT DISPENSER GLUCOSE - POINT OF CARE Routine 06/07/2022 9:31 PM CERTIFIED HEARING INSTRUMENT DISPENSER GLUCOSE - POINT OF CARE Routine 06/07/2022 5:52 PM CERTIFIED HEARING INSTRUMENT DISPENSER GLUCOSE - POINT OF CARE Routine 06/07/2022 12:00 PM CERTIFIED HEARING INSTRUMENT DISPENSER GLUCOSE - POINT OF CARE Routine 06/07/2022 8:21 AM CERTIFIED HEARING INSTRUMENT DISPENSER CBC W/O DIFFERENTIAL Routine 06/07/2022 2:24 AM CERTIFIED HEARING INSTRUMENT DISPENSER Degeneration of cervical intervertebral disc BASIC METABOLIC PANEL (CALCIUM TOTAL) Routine 06/07/2022 2:24 AM CERTIFIED HEARING INSTRUMENT DISPENSER Degeneration of cervical intervertebral disc PHOSPHORUS BLOOD Routine 06/07/2022 2:24 AM CERTIFIED HEARING INSTRUMENT DISPENSER MAGNESIUM BLOOD Routine 06/07/2022 2:24 AM CERTIFIED HEARING INSTRUMENT DISPENSER GLUCOSE - POINT OF CARE Routine 06/06/2022 8:38 PM CERTIFIED HEARING INSTRUMENT DISPENSER GLUCOSE - POINT OF CARE Routine 06/06/2022 5:02 PM CERTIFIED HEARING INSTRUMENT DISPENSER GLUCOSE - POINT OF CARE Routine 06/06/2022 12:26 PM CERTIFIED HEARING INSTRUMENT DISPENSER TRANSFUSE RED BLOOD CELL LEUKOREDUCED UNIT(S) Routine 06/06/2022 9:42 AM CERTIFIED HEARING INSTRUMENT DISPENSER PREPARE RBC LEUKOREDUCED UNIT Routine 06/06/2022 9:36 AM CERTIFIED HEARING INSTRUMENT DISPENSER GLUCOSE - POINT OF CARE Routine 06/06/2022 8:00 AM CERTIFIED HEARING INSTRUMENT DISPENSER PTH INTACT W/O CALCIUM AM Draw 06/06/2022 3:07 AM CERTIFIED HEARING INSTRUMENT DISPENSER HEMOGLOBIN A1C Routine 06/06/2022 3:07 AM CERTIFIED HEARING INSTRUMENT DISPENSER VITAMIN D 25-HYDROXY AM Draw 06/06/2022 3:07 AM CERTIFIED HEARING INSTRUMENT DISPENSER CBC W/O DIFFERENTIAL Routine 06/06/2022 3:07 AM CERTIFIED HEARING INSTRUMENT DISPENSER Degeneration of cervical intervertebral disc BASIC METABOLIC PANEL (CALCIUM TOTAL) Routine 06/06/2022 3:07 AM CERTIFIED HEARING INSTRUMENT DISPENSER Degeneration of cervical intervertebral disc PHOSPHORUS BLOOD Routine 06/06/2022 3:07 AM CERTIFIED HEARING INSTRUMENT DISPENSER MAGNESIUM BLOOD Routine 06/06/2022 3:07 AM CERTIFIED HEARING INSTRUMENT DISPENSER FOLATE Routine 06/06/2022 3:07 AM CERTIFIED HEARING INSTRUMENT DISPENSER VITAMIN B12 AM Draw 06/06/2022 3:07 AM CERTIFIED HEARING INSTRUMENT DISPENSER IRON + TRANSFERRIN PANEL Routine 06/06/2022 3:07 AM CERTIFIED HEARING INSTRUMENT DISPENSER FERRITIN Routine 06/06/2022 3:07 AM CERTIFIED HEARING INSTRUMENT DISPENSER GLUCOSE - POINT OF CARE Routine 06/05/2022 8:51 PM CERTIFIED HEARING INSTRUMENT DISPENSER GLUCOSE - POINT OF CARE Routine 06/05/2022 5:59 PM CERTIFIED HEARING INSTRUMENT DISPENSER GLUCOSE - POINT OF CARE Routine 06/05/2022 4:27 PM CERTIFIED HEARING INSTRUMENT DISPENSER GLUCOSE - POINT OF CARE Routine 06/05/2022 12:37 PM CERTIFIED HEARING INSTRUMENT DISPENSER CBC W/O DIFFERENTIAL Timed 06/05/2022 12:32 PM CERTIFIED HEARING INSTRUMENT DISPENSER XR CERVICAL SPINE 2 OR 3VW Routine 06/05/2022 9:35 AM CERTIFIED HEARING INSTRUMENT DISPENSER Degeneration of cervical intervertebral disc GLUCOSE - POINT OF CARE Routine 06/05/2022 8:39 AM CERTIFIED HEARING INSTRUMENT DISPENSER CBC W/O DIFFERENTIAL Routine 06/05/2022 4:58 AM CERTIFIED HEARING INSTRUMENT DISPENSER Degeneration of cervical intervertebral disc BASIC METABOLIC PANEL (CALCIUM TOTAL) Routine 06/05/2022 4:58 AM CERTIFIED HEARING INSTRUMENT DISPENSER Degeneration of cervical intervertebral disc GLUCOSE - POINT OF CARE Routine 06/04/2022 8:20 PM CERTIFIED HEARING INSTRUMENT DISPENSER GLUCOSE - POINT OF CARE Routine 06/04/2022 11:51 AM CERTIFIED HEARING INSTRUMENT DISPENSER FL JOSÉ LUIS SURGERY STAT 06/04/2022 11:30 AM CERTIFIED HEARING INSTRUMENT DISPENSER Degeneration of cervical intervertebral disc FUSION POSTERIOR CERVICAL (PCF) 06/04/2022 8:42 AM CERTIFIED HEARING INSTRUMENT DISPENSER Cervical myelopathy (HCC) Case Notes LATEX ALLERGY Special Needs PRONE, C-ARM CERVICAL ATTACHMENT JULIETH DONALD NEURO MONITORING POWER:4mm jose, 4mm cutter, 2mm cutter DEPUY: DELILAH MCGINNIS [phone]; EMERSON C[place]AM [phone]--reps notified mk 06/01 GLUCOSE - POINT OF CARE Routine 06/04/2022 6:39 AM CERTIFIED HEARING INSTRUMENT DISPENSER TYPE + SCREEN PANEL MARLEE 06/04/2022 6:39 AM CERTIFIED HEARING INSTRUMENT DISPENSER Preop examination documented in this encounter Results * XR [...] MD on 07/18/2022 11:31 AM Lyla Blackwell ENGINEERING AGENT-LITHOGRAPHIC PROOFER DIAGNOSTIC IMAG ING ORDERABLES * GLUCOSE - POINT OF CARE (06/08/2022 7:47 AM CERTIFIED HEARING INSTRUMENT DISPENSER) Glucose WB/POC 95 70 - 115 mg/dL 06/08/2022 7:48 AM CERTIFIED HEARING INSTRUMENT DISPENSER [facility] Specimen Type Arterial 06/08/2022 7:48 AM CERTIFIED HEARING INSTRUMENT DISPENSER [facility] Blood BLOOD SPECIMEN / Unknown 06/08/2022 7:47 AM CERTIFIED HEARING INSTRUMENT DISPENSER 06/08/2022 7:48 AM CERTIFIED HEARING INSTRUMENT DISPENSER Ama Gonzalez MD LAB - POINT OF C ARE ORDERABLES [address] [address], [facility] [phone] * (ABNORMAL) PHOSPHORUS BLOOD (06/08/2022 2:13 AM CERTIFIED HEARING INSTRUMENT DISPENSER) Phosphorus 2.5(L) 2.9 - 5.1 mg/dL 06/08/2022 3:12 AM CERTIFIED HEARING INSTRUMENT DISPENSER [facility] Blood BLOOD SPECIMEN / Unknown Lab Venipuncture / Unknown 06/08/2022 2:13 AM CERTIFIED HEARING INSTRUMENT DISPENSER 06/08/2022 2:44 AM CERTIFIED HEARING INSTRUMENT DISPENSER Ama Gonzalez MD LAB - CHEMISTRY ORDERABLES [address] [address], [place] [phone] * MAGNESIUM BLOOD (06/08/2022 2:13 AM CERTIFIED HEARING INSTRUMENT DISPENSER) Pathologist [facility] Magnesium 1.7 1.6 - 2.6 mg/dL 06/08/2022 3:12 AM [facility] Blood BLOOD SPECIMEN / Unknown Lab Venipuncture / Unknown 06/08/2022 2:13 AM CERTIFIED HEARING INSTRUMENT DISPENSER 06/08/2022 2:44 AM CERTIFIED HEARING INSTRUMENT DISPENSER Ama Gonzalez MD LAB - CHEMISTRY ORDERABLES [facility] [address] [place] [address], [facility] [phone] * (ABNORMAL) CBC W/O DIFFERENTIAL (06/08/2022 2:13 AM CERTIFIED HEARING INSTRUMENT DISPENSER) [facility] WBC 9.2 3.5 - 10.5 10? 3 /uL 06/08/2022 2:54 AM [facility] RBC 2.64(L) 3.80 - 5.20 10? 6 /uL 06/08/2022 2:54 AM [facility] Hemoglobin 7.9(L) 12.0 - 15.6 g/dL 06/08/2022 2:54 AM [facility] Hematocrit 23.9(L) 35.0 - 45.0 % 06/08/2022 2:54 AM [facility] MCV 90.5 80.7 - 98.3 fL 06/08/2022 2:54 AM [facility] MCH 29.9 26.7 - 34.0 pg 06/08/2022 2:54 AM [facility] MCHC 33.1 30.8 - 35.9 g/dL 06/08/2022 2:54 AM [facility] RDW-SD 44.6 36.0 - 50.0 fL 06/08/2022 2:54 AM [facility] RDW-CV 13.4 11.2 - 14.8 % 06/08/2022 2:54 AM [facility] Platelet Count 287 150 - 400 10? 3 /uL 06/08/2022 2:54 AM [facility] MPV 10.1 9.4 - 12.9 fL 06/08/2022 2:54 AM [facility] nRBC Absolute 0.00 0 10? 3 /uL 06/08/2022 2:54 AM [facility] nRBC Auto 0.0 0 /100 WBC 06/08/2022 2:54 AM [facility] Blood BLOOD SPECIMEN / Unknown Lab Venipuncture / Unknown 06/08/2022 2:13 AM CERTIFIED HEARING INSTRUMENT DISPENSER 06/08/2022 2:43 AM CERTIFIED HEARING INSTRUMENT DISPENSER Deon Taylor MD LAB - HEMATOLOGY ORD ERABLES [facility] [address] [place] [address], [facility] [phone] * (ABNORMAL) BASIC METABOLIC PANEL (CALCIUM TOTAL) (06/08/2022 2:13 AM [facility]) BUN 25 7 - 26 mg/dL 06/08/2022 3:12 AM [facility] Creatinine 1.30(H) 0.56 - 0.96 mg/dL 06/08/2022 3:12 AM [facility] Sodium 132(L) 136 - 145 mmol/L 06/08/2022 3:12 AM [facility] Potassium 5.4(H) 3.5 - 4.5 mmol/L 06/08/2022 3:12 AM [facility] Chloride 97(L) 98 - 107 mmol/L 06/08/2022 3:12 AM [facility] CO2 24 22 - 29 mmol/L 06/08/2022 3:12 AM [facility] Glucose 97 70 - 115 mg/dL 06/08/2022 3:12 AM [facility] Calcium 8.4 8.4 - 10.2 mg/dL 06/08/2022 3:12 AM [facility] Anion Gap 16 8 - 18 06/08/2022 3:12 AM [facility] BUN/Creatinine Ratio 19 7 - 23 06/08/2022 3:12 AM [facility] Osmolality Calculated 278 270 - 300 mOsm/kg 06/08/2022 3:12 AM [facility] eGFR by CKD-EPI 44(L) >=90 mL/min/1.7 3 m2 06/08/2022 3:12 AM CERTIFIED HEARING INSTRUMENT DISPENSER [facility] Blood BLOOD SPECIMEN / Unknown Lab Venipuncture / Unknown 06/08/2022 2:13 AM CERTIFIED HEARING INSTRUMENT DISPENSER 06/08/2022 2:44 AM CERTIFIED HEARING INSTRUMENT DISPENSER Deon Taylor MD LAB - CHEMISTRY CHELO QUIGLEY [address] [address], [place] [phone] * GLUCOSE - POINT OF CARE (06/07/2022 11:25 PM CERTIFIED HEARING INSTRUMENT DISPENSER) Glucose WB/POC 94 70 - 115 mg/dL 06/08/2022 4:12 PM CERTIFIED HEARING INSTRUMENT DISPENSER [facility] Specimen Type Cap Fingerstick 2022 4:12 PM CERTIFIED HEARING INSTRUMENT DISPENSER [facility] Blood BLOOD SPECIMEN / Unknown 06/07/2022 11:25 PM CERTIFIED HEARING INSTRUMENT DISPENSER 06/08/2022 4:12 PM CERTIFIED HEARING INSTRUMENT DISPENSER Ama Gonzalez MD LAB - POINT OF C ARE ORDERABLES [address] [address], [place] [phone] * GLUCOSE - POINT OF CARE (06/07/2022 9:31 PM CERTIFIED HEARING INSTRUMENT DISPENSER) Glucose WB/POC 82 70 - 115 mg/dL 06/07/2022 9:36 PM CERTIFIED HEARING INSTRUMENT DISPENSER [facility] Specimen Type Cap Fingerstick 2022 9:36 PM CERTIFIED HEARING INSTRUMENT DISPENSER [facility] Blood BLOOD SPECIMEN / Unknown 06/07/2022 9:31 PM CERTIFIED HEARING INSTRUMENT DISPENSER 06/07/2022 9:36 PM CERTIFIED HEARING INSTRUMENT DISPENSER Ama Gonzalez MD LAB - POINT OF C ARE ORDERABLES [address] [address], [place] [phone] * GLUCOSE - POINT OF CARE (06/07/2022 5:52 PM CERTIFIED HEARING INSTRUMENT DISPENSER) Glucose WB/POC 103 70 - 115 mg/dL 06/07/2022 5:52 PM CERTIFIED HEARING INSTRUMENT DISPENSER [facility] Specimen Type Arterial 06/07/2022 5:52 PM CERTIFIED HEARING INSTRUMENT DISPENSER [facility] Blood BLOOD SPECIMEN / Unknown 06/07/2022 5:52 PM CERTIFIED HEARING INSTRUMENT DISPENSER 06/07/2022 5:52 PM CERTIFIED HEARING INSTRUMENT DISPENSER Ama Gonzalez MD LAB - POINT OF ARE ORDERABLES Performing Organization Address City/[facility]/ZIP Co de Phone Number [address] [address], [place] [phone] * (ABNORMAL) GLUCOSE - POINT OF CARE (06/07/2022 12:00 PM CERTIFIED HEARING INSTRUMENT DISPENSER) Glucose WB/POC 153(H) 70 - 115 mg/dL 06/07/2022 12:04 PM CERTIFIED HEARING INSTRUMENT DISPENSER [facility] Specimen Type Cap Fingerstick 2022 12:04 PM CERTIFIED HEARING INSTRUMENT DISPENSER [facility] Blood BLOOD SPECIMEN / Unknown 06/07/2022 12:00 PM CERTIFIED HEARING INSTRUMENT DISPENSER 06/07/2022 12:04 PM CERTIFIED HEARING INSTRUMENT DISPENSER Ama Gonzalez MD LAB - POINT OF ARE ORDERABLES Performing Organization Address City/[facility]/ZIP Co de Phone Number [address] [address], [place] [phone] * GLUCOSE - POINT OF CARE (06/07/2022 8:21 AM CERTIFIED HEARING INSTRUMENT DISPENSER) Glucose WB/POC 91 70 - 115 mg/dL 06/07/2022 8:24 AM CERTIFIED HEARING INSTRUMENT DISPENSER [facility] Specimen Type Cap Fingerstick 2022 8:24 AM CERTIFIED HEARING INSTRUMENT DISPENSER [facility] Blood BLOOD SPECIMEN / Unknown 06/07/2022 8:21 AM CERTIFIED HEARING INSTRUMENT DISPENSER 06/07/2022 8:24 AM CERTIFIED HEARING INSTRUMENT DISPENSER Ama Gonzalez MD LAB - POINT OF C ARE ORDERABLES [address] [address], [place] [phone] * (ABNORMAL) PHOSPHORUS BLOOD (06/07/2022 2:24 AM CERTIFIED HEARING INSTRUMENT DISPENSER) Pathologist [facility] Phosphorus 2.7(L) 2.9 - 5.1 mg/dL 06/07/2022 3:34 AM CERTIFIED HEARING INSTRUMENT DISPENSER [facility] Blood BLOOD SPECIMEN / Unknown Lab Venipuncture / Unknown 06/07/2022 2:24 AM CERTIFIED HEARING INSTRUMENT DISPENSER 06/07/2022 3:01 AM CERTIFIED HEARING INSTRUMENT DISPENSER Ama Gonzalez MD LAB - CHEMISTRY ORDERABLES Performing Organization Address City/[facility]/ZIP Co de Phone Number [address] [address], [place] [phone] * MAGNESIUM BLOOD (06/07/2022 2:24 AM CERTIFIED HEARING INSTRUMENT DISPENSER) [facility] Magnesium 2.1 1.6 - 2.6 mg/dL 06/07/2022 3:34 AM CERTIFIED HEARING INSTRUMENT DISPENSER [facility] Blood BLOOD SPECIMEN / Unknown Lab Venipuncture / Unknown 06/07/2022 2:24 AM CERTIFIED HEARING INSTRUMENT DISPENSER 06/07/2022 3:01 AM CERTIFIED HEARING INSTRUMENT DISPENSER Ama Gonzalez MD LAB - CHEMISTRY ORDERABLES Performing Organization Address City/[facility]/ZIP Co de Phone Number [address] [address], [place] [phone] * (ABNORMAL) CBC W/O DIFFERENTIAL (06/07/2022 2:24 AM CERTIFIED HEARING INSTRUMENT DISPENSER) Pathologist [facility] WBC 11.8(H) 3.5 - 10.5 10? 3 /uL 06/07/2022 3:19 AM [facility] RBC 2.85(L) 3.80 - 5.20 10? 6 /uL 06/07/2022 3:19 AM [facility] Hemoglobin 8.5(L) 12.0 - 15.6 g/dL 06/07/2022 3:19 AM [facility] Hematocrit 25.2(L) 35.0 - 45.0 % 06/07/2022 3:19 AM [facility] MCV 88.4 80.7 - 98.3 fL 06/07/2022 3:19 AM [facility] MCH 29.8 26.7 - 34.0 pg 06/07/2022 3:19 AM [facility] MCHC 33.7 30.8 - 35.9 g/dL 06/07/2022 3:19 AM [facility] RDW-SD 43.3 36.0 - 50.0 fL 06/07/2022 3:19 AM [facility] RDW-CV 13.2 11.2 - 14.8 % 06/07/2022 3:19 AM [facility] Platelet Count 291 150 - 400 10? 3 /uL 06/07/2022 3:19 AM [facility] MPV 10.0 9.4 - 12.9 fL 06/07/2022 3:19 AM [facility] nRBC Absolute 0.00 0 10? 3 /uL 06/07/2022 3:19 AM [facility] nRBC Auto 0.0 0 /100 WBC 06/07/2022 3:19 AM [facility] Blood BLOOD SPECIMEN / Unknown Lab Venipuncture / Unknown 06/07/2022 2:24 AM CERTIFIED HEARING INSTRUMENT DISPENSER 06/07/2022 3:01 AM [facility] Deon Taylor MD LAB - HEMATOLOGY ORD ERABLES Performing Organization Address [facility] Co de Phone Number [address] [address], [facility] [phone] * (ABNORMAL) BASIC METABOLIC PANEL (CALCIUM TOTAL) (06/07/2022 2:24 AM CERTIFIED HEARING INSTRUMENT DISPENSER) BUN 25 7 - 26 mg/dL 06/07/2022 3:34 AM [facility] Creatinine 1.26(H) 0.56 - 0.96 mg/dL 06/07/2022 3:34 AM [facility] Sodium 130(L) 136 - 145 mmol/L 06/07/2022 3:34 AM [facility] Potassium 5.3(H) 3.5 - 4.5 mmol/L 06/07/2022 3:34 AM [facility] Chloride 102 98 - 107 mmol/L 06/07/2022 3:34 AM [facility] CO2 24 22 - 29 mmol/L 06/07/2022 3:34 AM [facility] Glucose 121(H) 70 - 115 mg/dL 06/07/2022 3:34 AM [facility] Calcium 8.8 8.4 - 10.2 mg/dL 06/07/2022 3:34 AM [facility] Anion Gap 9 8 - 18 06/07/2022 3:34 AM [facility] BUN/Creatinine Ratio 20 7 - 23 06/07/2022 3:34 AM [facility] Osmolality Calculated 276 270 - 300 mOsm/kg 06/07/2022 3:34 AM [facility] eGFR by CKD-EPI 45(L) >=90 mL/min/1.7 3 m2 06/07/2022 3:34 AM [facility] Blood BLOOD SPECIMEN / Unknown Lab Venipuncture / Unknown 06/07/2022 2:24 AM CERTIFIED HEARING INSTRUMENT DISPENSER 06/07/2022 3:01 AM CERTIFIED HEARING INSTRUMENT DISPENSER Deon Taylor MD LAB - CHEMISTRY CHELO QUIG[facility] [facility] [address] [place] [address], [facility] [phone] * (ABNORMAL) GLUCOSE - POINT OF CARE (06/06/2022 8:38 PM CERTIFIED HEARING INSTRUMENT DISPENSER) Glucose WB/POC 137(H) 70 - 115 mg/dL 06/06/2022 8:39 PM [facility] Specimen Type Cap Fingerstick 2022 8:39 PM [facility] Blood BLOOD SPECIMEN / Unknown 06/06/2022 8:38 PM CERTIFIED HEARING INSTRUMENT DISPENSER 06/06/2022 8:39 PM CERTIFIED HEARING INSTRUMENT DISPENSER Ama Gonzalez MD LAB - POINT OF C ARE ORDERABLES [address] [address], [place] [phone] * (ABNORMAL) GLUCOSE - POINT OF CARE (06/06/2022 5:02 PM CERTIFIED HEARING INSTRUMENT DISPENSER) Glucose WB/POC 241(H) 70 - 115 mg/dL 06/06/2022 5:03 PM CERTIFIED HEARING INSTRUMENT DISPENSER [facility] Specimen Type Arterial 06/06/2022 5:03 PM CERTIFIED HEARING INSTRUMENT DISPENSER [facility] Blood BLOOD SPECIMEN / Unknown 06/06/2022 5:02 PM CERTIFIED HEARING INSTRUMENT DISPENSER 06/06/2022 5:03 PM CERTIFIED HEARING INSTRUMENT DISPENSER Ama Gonzalez MD LAB - POINT [facility] ARE ORDERABLES Performing Organization Address City/[facility]/ZIP Co de Phone Number [address] [address], [place] [phone] * (ABNORMAL) GLUCOSE - POINT OF CARE (06/06/2022 12:26 PM CERTIFIED HEARING INSTRUMENT DISPENSER) Glucose WB/POC 165(H) 70 - 115 mg/dL 06/06/2022 12:27 PM CERTIFIED HEARING INSTRUMENT DISPENSER [facility] Specimen Type Arterial 06/06/2022 12:27 PM CERTIFIED HEARING INSTRUMENT DISPENSER [facility] Blood BLOOD SPECIMEN / Unknown 06/06/2022 12:26 PM CERTIFIED HEARING INSTRUMENT DISPENSER 06/06/2022 12:27 PM CERTIFIED HEARING INSTRUMENT DISPENSER Ama Gonzalez MD LAB - POINT [facility] ARE ORDERABLES [address] [address], [place] [phone] * TRANSFUSE RED BLOOD CELL LEUKOREDUCED UNIT(S) (06/06/2022 12:20 PM CERTIFIED HEARING INSTRUMENT DISPENSER) Ama Gonzalez MD NURSING - BLOOD PROD TRANSFUSION * TRANSFUSE RED BLOOD CELL LEUKOREDUCED UNIT(S), 1 Units (06/06/2022 12:20 PM CERTIFIED HEARING INSTRUMENT DISPENSER) Ama Gonzalez MD NURSING - BLOOD PROD TRANSFUSION * PREPARE (CROSSMATCH) RBC UNIT(S), 1 Units (06/06/2022 9:36 AM CERTIFIED HEARING INSTRUMENT DISPENSER) Unit Description AS1 LR PRBC [facility] Unit ABO A [facility] Unit Rh POS [facility] Product Number R02 [facility] B[facility] Unit Donor # [id number] [facility] Unit Status transfused [facility] Product Code [id number] [facility] Blood Type Barcode 6200 [facility] Expiration Date [id number] S BLOOD BANK LAB Blood Bank BLOOD SPECIMEN / Unknown 06/04/2022 6:44 AM CERTIFIED HEARING INSTRUMENT DISPENSER Ama Gonzalez MD LAB - BLOOD BANK ORDERABLES [facility] [address] [place] [address], [place] [phone] * (ABNORMAL) GLUCOSE - POINT OF CARE (06/06/2022 8:00 AM CERTIFIED HEARING INSTRUMENT DISPENSER) Glucose WB/POC 125(H) 70 - 115 mg/dL 06/06/2022 8:01 AM CERTIFIED HEARING INSTRUMENT DISPENSER [facility] Specimen Type Arterial 06/06/2022 8:01 AM CERTIFIED HEARING INSTRUMENT DISPENSER [facility] Blood BLOOD SPECIMEN / Unknown 06/06/2022 8:00 AM CERTIFIED HEARING INSTRUMENT DISPENSER 06/06/2022 8:01 AM CERTIFIED HEARING INSTRUMENT DISPENSER Ama Gonzalez MD LAB - POINT OF C ARE ORDERABLES [facility] [address] [place] [address], [place] [phone] * PHOSPHORUS BLOOD (06/06/2022 3:07 AM CERTIFIED HEARING INSTRUMENT DISPENSER) Phosphorus 3.2 2.9 - 5.1 mg/dL 06/06/2022 4:03 AM CERTIFIED HEARING INSTRUMENT DISPENSER [facility] Blood BLOOD SPECIMEN / Unknown Lab Venipuncture / Unknown 06/06/2022 3:07 AM CERTIFIED HEARING INSTRUMENT DISPENSER 06/06/2022 3:29 AM CERTIFIED HEARING INSTRUMENT DISPENSER Ama Gonzalez MD LAB - CHEMISTRY ORDERABLES [address] [address], [facility] [phone] * MAGNESIUM BLOOD (06/06/2022 3:07 AM CERTIFIED HEARING INSTRUMENT DISPENSER) Magnesium 1.6 1.6 - 2.6 mg/dL 06/06/2022 4:03 AM [facility] Blood BLOOD SPECIMEN / Unknown Lab Venipuncture / Unknown 06/06/2022 3:07 AM CERTIFIED HEARING INSTRUMENT DISPENSER 06/06/2022 3:29 AM CERTIFIED HEARING INSTRUMENT DISPENSER Ama Gonzalez MD LAB - CHEMISTRY ORDERABLES [address] [address], [facility] [phone] * (ABNORMAL) CBC W/O DIFFERENTIAL (06/06/2022 3:07 AM CERTIFIED HEARING INSTRUMENT DISPENSER) WBC 8.5 3.5 - 10.5 10? 3 /uL 06/06/2022 3:32 AM [facility] RBC 2.26(L) 3.80 - 5.20 10? 6 /uL 06/06/2022 3:32 AM [facility] Hemoglobin 6.7(L) 12.0 - 15.6 g/dL 06/06/2022 3:32 AM [facility] Hematocrit 20.8(L) 35.0 - 45.0 % 06/06/2022 3:32 AM [facility] MCV 92.0 80.7 - 98.3 fL 06/06/2022 3:32 AM [facility] MCH 29.6 26.7 - 34.0 pg 06/06/2022 3:32 AM [facility] MCHC 32.2 30.8 - 35.9 g/dL 06/06/2022 3:32 AM [facility] RDW-SD 43.7 36.0 - 50.0 fL 06/06/2022 3:32 AM [facility] RDW-CV 13.2 11.2 - 14.8 % 06/06/2022 3:32 AM [facility] Platelet Count 254 150 - 400 10? 3 /uL 06/06/2022 3:32 AM [facility] MPV 9.7 9.4 - 12.9 fL 06/06/2022 3:32 AM [facility] nRBC Absolute 0.00 0 10? 3 /uL 06/06/2022 3:32 AM [facility] nRBC Auto 0.0 0 /100 WBC 06/06/2022 3:32 AM [facility] Blood BLOOD SPECIMEN / Unknown Lab Venipuncture / Unknown 06/06/2022 3:07 AM CERTIFIED HEARING INSTRUMENT DISPENSER 06/06/2022 3:29 AM CERTIFIED HEARING INSTRUMENT DISPENSER Deon Taylor MD LAB - HEMATOLOGY ORD ERABLES Performing Organization Address [facility] Co de Phone Number [address] [address] [phone] * (ABNORMAL) BASIC METABOLIC PANEL (CALCIUM TOTAL) (06/06/2022 3:07 AM [facility]) BUN 25 7 - 26 mg/dL 06/06/2022 4:03 AM [facility] Creatinine 1.34(H) 0.56 - 0.96 mg/dL 06/06/2022 4:03 AM [facility] Sodium 129(L) 136 - 145 mmol/L 06/06/2022 4:03 AM [facility] Potassium 4.6(H) 3.5 - 4.5 mmol/L 06/06/2022 4:03 AM [facility] Chloride 100 98 - 107 mmol/L 06/06/2022 4:03 AM [facility] CO2 22 22 - 29 mmol/L 06/06/2022 4:03 AM [facility] Glucose 112 70 - 115 mg/dL 06/06/2022 4:03 AM [facility] Calcium 8.9 8.4 - 10.2 mg/dL 06/06/2022 4:03 AM [facility] Anion Gap 12 8 - 18 06/06/2022 4:03 AM [facility] BUN/Creatinine Ratio 19 7 - 23 06/06/2022 4:03 AM [facility] Osmolality Calculated 273 270 - 300 mOsm/kg 06/06/2022 4:03 AM [facility] eGFR by CKD-EPI 42(L) >=90 mL/min/1.7 3 m2 06/06/2022 4:03 AM [facility] Blood BLOOD SPECIMEN / Unknown Lab Venipuncture / Unknown 06/06/2022 3:07 AM CERTIFIED HEARING INSTRUMENT DISPENSER 06/06/2022 3:29 AM CERTIFIED HEARING INSTRUMENT DISPENSER Deon Taylor MD LAB - CHEMISTRY CHELO QUIGLEY [facility] [address] [place] [address], [place] [phone] * FOLATE (06/06/2022 3:07 AM CERTIFIED HEARING INSTRUMENT DISPENSER) Folate 9.4 7.0 - 31.4 ng/mL 06/06/2022 4:35 AM [facility] Blood BLOOD SPECIMEN / Unknown Lab Venipuncture / Unknown 06/06/2022 3:07 AM CERTIFIED HEARING INSTRUMENT DISPENSER 06/06/2022 3:29 AM CERTIFIED HEARING INSTRUMENT DISPENSER Ama Gonzalez MD LAB - CHEMISTRY ORDERABLES [facility] [address] [place] [address], [place] [phone] * VITAMIN B12 (06/06/2022 3:07 AM CERTIFIED HEARING INSTRUMENT DISPENSER) Vitamin B12 382 213 - 816 pg/mL 06/06/2022 4:35 AM [facility] Blood BLOOD SPECIMEN / Unknown Lab Venipuncture / Unknown 06/06/2022 3:07 AM CERTIFIED HEARING INSTRUMENT DISPENSER 06/06/2022 3:29 AM CERTIFIED HEARING INSTRUMENT DISPENSER Ama Gonzalez MD LAB - CHEMISTRY ORDERABLES [address] [address], [place] [phone] * FERRITIN (06/06/2022 3:07 AM CERTIFIED HEARING INSTRUMENT DISPENSER) [facility] Ferritin 94 13 - 204 ng/mL 06/06/2022 4:10 AM [facility] Blood BLOOD SPECIMEN / Unknown Lab Venipuncture / Unknown 06/06/2022 3:07 AM CERTIFIED HEARING INSTRUMENT DISPENSER 06/06/2022 3:25 AM CERTIFIED HEARING INSTRUMENT DISPENSER Ama Gonzalez MD LAB - CHEMISTRY ORDERABLES [address] [address], [place] [phone] * (ABNORMAL) IRON + TRANSFERRIN PANEL (06/06/2022 3:07 AM CERTIFIED HEARING INSTRUMENT DISPENSER) [facility] Iron 20(L) 40 - 150 ug/dL 06/06/2022 3:53 AM [facility] Transferrin 162(L) 174 - 382 mg/dL 06/06/2022 3:53 AM [facility] Transferrin Saturation % 10(L) 16 - 50 % 06/06/2022 3:53 AM [facility] TIBC Calculated 203(L) 240 - 450 ug/dL 06/06/2022 3:53 AM [facility] Blood BLOOD SPECIMEN / Unknown Lab Venipuncture / Unknown 06/06/2022 3:07 AM CERTIFIED HEARING INSTRUMENT DISPENSER 06/06/2022 3:25 AM CERTIFIED HEARING INSTRUMENT DISPENSER Ama Gonzalez MD LAB - CHEMISTRY ORDERABLES [address] [address], [place] [phone] * HEMOGLOBIN A1C (06/06/2022 3:07 AM CERTIFIED HEARING INSTRUMENT DISPENSER) [facility] Hemoglobin A1c 5.3 <=5.6 % 06/06/2022 3:38 PM [facility] Estimated Average Glucose 105 mg/dL 06/06/2022 3:38 PM [facility] Comment: HbA1c Interpretation: Normal : < 5.7% Pre-diabetes: 5.7-6.4% Diabetes: Equal to or greater than 6.5% Test results diagnostic of diabetes should be repeated for confirmation. Treatment target values recommended by ADA and other clinical organizations should be used to evaluate metabolic control in patients. Reference: [place] [employer], Standards of Care in Diabetes -2020 In patients 70 years and older consider HbA1c target range of 7.0-7.5% (Reference: Oswaldo Liz et al. JAMDA. 2012) The Sebia assay for the measurement of HbA1c is a National Glycohemoglobin Standardization Program (NGSP) certified method. Blood BLOOD SPECIMEN / Unknown Lab Venipuncture / Unknown 06/06/2022 3:07 AM CERTIFIED HEARING INSTRUMENT DISPENSER 06/06/2022 3:28 AM CERTIFIED HEARING INSTRUMENT DISPENSER Ama Gonzalez MD LAB - CHEMISTRY ORDERABLES [address] [address], [facility] [phone] * PTH INTACT W/O CALCIUM (06/06/2022 3:07 AM CERTIFIED HEARING INSTRUMENT DISPENSER) PTH Intact 72.1 8.0 - 77.0 pg/mL 06/06/2022 4:04 AM [facility] Blood BLOOD SPECIMEN / Unknown Lab Venipuncture / Unknown 06/06/2022 3:07 AM CERTIFIED HEARING INSTRUMENT DISPENSER 06/06/2022 3:32 AM CERTIFIED HEARING INSTRUMENT DISPENSER Deon Taylor MD LAB - CHEMISTRY CHELO QUIGLEY [address] [address], [facility] [phone] * VITAMIN D 25-HYDROXY (06/06/2022 3:07 AM CERTIFIED HEARING INSTRUMENT DISPENSER) Vitamin D, 25 Hydroxy 53.0 30.0 - 80.0 ng/mL 06/06/2022 4:35 AM [facility] Comment: The recommendations for 25-Hydroxy Vitamin D [...] Lab Venipuncture / Unknown 06/06/2022 3:07 AM CERTIFIED HEARING INSTRUMENT DISPENSER 06/06/2022 3:29 AM CERTIFIED HEARING INSTRUMENT DISPENSER Deon Taylor MD LAB - CHEMISTRY CHELO QUIGLEY Performing Organization Address [facility] Co de Phone Number [address] [address], [facility] [phone] * (ABNORMAL) GLUCOSE - POINT OF CARE (06/05/2022 8:51 PM CERTIFIED HEARING INSTRUMENT DISPENSER) Pathologist [facility] Glucose WB/POC 152(H) 70 - 115 mg/dL 06/05/2022 8:52 PM CERTIFIED HEARING INSTRUMENT DISPENSER [facility] Specimen Type Cap Fingerstick 2022 8:52 PM CERTIFIED HEARING INSTRUMENT DISPENSER [facility] Blood BLOOD SPECIMEN / Unknown 06/05/2022 8:51 PM CERTIFIED HEARING INSTRUMENT DISPENSER 06/05/2022 8:52 PM CERTIFIED HEARING INSTRUMENT DISPENSER Ama Gonzalez MD LAB - POINT OF C ARE ORDERABLES Performing Organization Address [facility] Co de Phone Number [address] [address], [place] [phone] * (ABNORMAL) GLUCOSE - POINT OF CARE (06/05/2022 5:59 PM CERTIFIED HEARING INSTRUMENT DISPENSER) Glucose WB/POC 185(H) 70 - 115 mg/dL 06/05/2022 6:02 PM CERTIFIED HEARING INSTRUMENT DISPENSER [facility] Specimen Type Cap Fingerstick 2022 6:02 PM CERTIFIED HEARING INSTRUMENT DISPENSER [facility] Blood BLOOD SPECIMEN / Unknown 06/05/2022 5:59 PM CERTIFIED HEARING INSTRUMENT DISPENSER 06/05/2022 6:02 PM CERTIFIED HEARING INSTRUMENT DISPENSER Ama Gonzalez MD LAB - POINT OF ARE ORDERABLES [address] [address], [place] [phone] * (ABNORMAL) GLUCOSE - POINT OF CARE (06/05/2022 4:27 PM CERTIFIED HEARING INSTRUMENT DISPENSER) Glucose WB/POC 208(H) 70 - 115 mg/dL 06/05/2022 4:28 PM CERTIFIED HEARING INSTRUMENT DISPENSER [facility] Specimen Type Arterial 06/05/2022 4:28 PM CERTIFIED HEARING INSTRUMENT DISPENSER [facility] Blood BLOOD SPECIMEN / Unknown 06/05/2022 4:27 PM CERTIFIED HEARING INSTRUMENT DISPENSER 06/05/2022 4:28 PM CERTIFIED HEARING INSTRUMENT DISPENSER Ama Gonzalez MD LAB - POINT OF ARE ORDERABLES [facility] [address] [place] [address], [place] [phone] * (ABNORMAL) GLUCOSE - POINT OF CARE (06/05/2022 12:37 PM CERTIFIED HEARING INSTRUMENT DISPENSER) Glucose WB/POC 163(H) 70 - 115 mg/dL 06/05/2022 12:37 PM CERTIFIED HEARING INSTRUMENT DISPENSER [facility] Specimen Type Arterial 06/05/2022 12:37 PM CERTIFIED HEARING INSTRUMENT DISPENSER [facility] Blood BLOOD SPECIMEN / Unknown 06/05/2022 12:37 PM CERTIFIED HEARING INSTRUMENT DISPENSER 06/05/2022 12:37 PM CERTIFIED HEARING INSTRUMENT DISPENSER Ama Gonzalez MD LAB - POINT OF C ARE ORDERABLES [facility] [address] [place] [address], [facility] [phone] * (ABNORMAL) CBC W/O DIFFERENTIAL (06/05/2022 12:32 PM CERTIFIED HEARING INSTRUMENT DISPENSER) WBC 10.0 3.5 - 10.5 10? 3 /uL 06/05/2022 12:45 PM [facility] RBC 2.31(L) 3.80 - 5.20 10? 6 /uL 06/05/2022 12:45 PM [facility] Hemoglobin 7.0(L) 12.0 - 15.6 g/dL 06/05/2022 12:45 PM [facility] Hematocrit 20.9(L) 35.0 - 45.0 % 06/05/2022 12:45 PM [facility] MCV 90.5 80.7 - 98.3 fL 06/05/2022 12:45 PM [facility] MCH 30.3 26.7 - 34.0 pg 06/05/2022 12:45 PM [facility] MCHC 33.5 30.8 - 35.9 g/dL 06/05/2022 12:45 PM [facility] RDW-SD 43.0 36.0 - 50.0 fL 06/05/2022 12:45 PM [facility] RDW-CV 13.2 11.2 - 14.8 % 06/05/2022 12:45 PM [facility] Platelet Count 259 150 - 400 10? 3 /uL 06/05/2022 12:45 PM [facility] MPV 9.5 9.4 - 12.9 fL 06/05/2022 12:45 PM [facility] nRBC Absolute 0.00 0 10? 3 /uL 06/05/2022 12:45 PM [facility] nRBC Auto 0.0 0 /100 WBC 06/05/2022 12:45 PM [facility] Blood BLOOD SPECIMEN / Unknown Lab Venipuncture / Unknown 06/05/2022 12:32 PM CERTIFIED HEARING INSTRUMENT DISPENSER 06/05/2022 12:37 PM CERTIFIED HEARING INSTRUMENT DISPENSER Ama Gonzalez MD LAB - HEMATOLOGY ORDERABLES [facility] [address] [place] [address], [facility] [phone] * XR CERVICAL SPINE 2 OR 3VW (06/05/2022 9:35 AM CERTIFIED HEARING INSTRUMENT DISPENSER) Anatomical Region Laterality Modality Spine Radiographic Vivian ging 06/05/2022 11:4 5 AM CERTIFIED HEARING INSTRUMENT DISPENSER Impressions 06/05/2022 3:11 PM CERTIFIED HEARING INSTRUMENT DISPENSER IMPRESSION: Interval posterior spinal fusion of C4-T2. Poor delineation of the spine in this region in lateral projection. Report drafted by Jon Arias MD (professor of radiology) Kamila Narvaez MD have personally reviewed and interpreted this examination/study. > Interpreting Provider: Kamila Barber MD on 06/05/2022 3:11 PM Narrative 06/05/2022 3:11 PM CERTIFIED HEARING INSTRUMENT DISPENSER PROCEDURE: ??XR CERVICAL SPINE 2 OR 3VW, DATE/TIME OF EXAM: ??06/05/2022 9:37 AM, LOCATION ??[facility] INDICATION: M50.30: Degeneration of cervical intervertebral disc ADDITIONAL CLINICAL INFORMATION: Ordering Provider Reason For Exam: ??s/p C4-T2 PSIF COMPARISON: CT of the cervical spine dated 02/15/2022, and this x-ray cervical spine dated 03/13/2022 FINDINGS: There is grade 1 anterolisthesis of C3 on C4 measuring approximately 2 mm. There is interval posterior spinal fusion from C4 to T2. Skin luba are seen. There is limited demonstration of the severe degenerative changes of the mid and lower cervical spine as seen on CT done 02/15/2022. There is poor delineation of the lower cervical spine and upper thoracic spine in lateral projection, precluding evaluation of alignment in this region. The dens is intact and the lateral masses are normally aligned. The predental interval and the prevertebral soft tissues are normal. Diffuse osteopenia. Procedure Note Kamila Barber MD - 06/05/2022 PROCEDURE: XR CERVICAL SPINE 2 OR 3VW, DATE/TIME OF EXAM: 39:37 AM, LOCATION [facility] INDICATION: M50.30: Degeneration of cervical intervertebral disc ADDITIONAL CLINICAL INFORMATION: Ordering Provider Reason For Exam: s/p C4-T2 PSIF COMPARISON: CT of the cervical spine dated 02/15/2022, and this x-ray cervical spine dated 03/13/2022 FINDINGS: There is grade 1 anterolisthesis of C3 on C4 measuring approximately 2mm. There is interval posterior spinal fusion from C4 to T2. Skin staplesare seen. There is limited demonstration of the severe degenerative changes of the mid and lower cervical spine as seen on CT done 02/15/2022. There ispoor delineation of the lower cervical spine and upper thoracic spine inlateral projection, precluding evaluation of alignment in this region. The dens is intact and the lateral masses are normally aligned. The predental interval and the prevertebral soft tissues are normal. Diffuse osteopenia. IMPRESSION: Interval posterior spinal fusion of C4-T2. Poor delineation of the spine in this region in lateral projection. Report drafted by Jon Arias MD (professor of radiology) I, Kamila Barber MD have personally reviewed and interpreted this examination/study. > Interpreting Provider: Kamila Barber MD on 06/05/2022 3:11 PM Lyla Blackwell ENGINEERING AGENT-[employer]ITHOGRAPHIC [employer] DI[employer]NO[employer]IC IMAG ING ORDERABLES * GLUCOSE - POINT OF CARE (06/05/2022 8:39 AM CERTIFIED HEARING INSTRUMENT DISPENSER) Glucose WB/POC 109 70 - 115 mg/dL 06/05/2022 8:40 AM CERTIFIED HEARING INSTRUMENT DISPENSER [facility] Specimen Type Arterial 06/05/2022 8:40 AM CERTIFIED HEARING INSTRUMENT DISPENSER [facility] Blood BLOOD SPECIMEN / Unknown 06/05/2022 8:39 AM CERTIFIED HEARING INSTRUMENT DISPENSER 06/05/2022 8:40 AM CERTIFIED HEARING INSTRUMENT DISPENSER Deon Taylor MD LAB - POINT OF CARE ORDERABLES [facility] [address] [place] [address], [facility] [phone] * (ABNORMAL) CBC W/O DIFFERENTIAL (06/05/2022 4:58 AM CERTIFIED HEARING INSTRUMENT DISPENSER) WBC 10.4 3.5 - 10.5 10? 3 /uL 06/05/2022 5:27 AM [facility] RBC 2.41(L) 3.80 - 5.20 10? 6 /uL 06/05/2022 5:27 AM [facility] Hemoglobin 7.1(L) 12.0 - 15.6 g/dL 06/05/2022 5:27 AM [facility] Hematocrit 22.1(L) 35.0 - 45.0 % 06/05/2022 5:27 AM [facility] MCV 91.7 80.7 - 98.3 fL 06/05/2022 5:27 AM [facility] MCH 29.5 26.7 - 34.0 pg 06/05/2022 5:27 AM [facility] MCHC 32.1 30.8 - 35.9 g/dL 06/05/2022 5:27 AM [facility] RDW-SD 43.3 36.0 - 50.0 fL 06/05/2022 5:27 AM [facility] RDW-CV 13.1 11.2 - 14.8 % 06/05/2022 5:27 AM [facility] Platelet Count 273 150 - 400 10? 3 /uL 06/05/2022 5:27 AM [facility] MPV 9.8 9.4 - 12.9 fL 06/05/2022 5:27 AM [facility] nRBC Absolute 0.00 0 10? 3 /uL 06/05/2022 5:27 AM [facility] nRBC Auto 0.0 0 /100 WBC 06/05/2022 5:27 AM [facility] Blood BLOOD SPECIMEN / Unknown Lab Venipuncture / Unknown 06/05/2022 4:58 AM CERTIFIED HEARING INSTRUMENT DISPENSER 06/05/2022 5:16 AM [facility] Deon Taylor MD LAB - HEMATOLOGY ORD ERABLES [facility] [address] [place] [id number], [facility] [phone] * (ABNORMAL) BASIC METABOLIC PANEL (CALCIUM TOTAL) (06/05/2022 4:58 AM CERTIFIED HEARING INSTRUMENT DISPENSER) BUN 27(H) 7 - 26 mg/dL 06/05/2022 5:43 AM [facility] Creatinine 1.40(H) 0.56 - 0.96 mg/dL 06/05/2022 5:43 AM [facility] Sodium 132(L) 136 - 145 mmol/L 06/05/2022 5:43 AM [facility] Potassium 5.2(H) 3.5 - 4.5 mmol/L 06/05/2022 5:43 AM [facility] Chloride 103 98 - 107 mmol/L 06/05/2022 5:43 AM [facility] CO2 19(L) 22 - 29 mmol/L 06/05/2022 5:43 AM [facility] Glucose 107 70 - 115 mg/dL 06/05/2022 5:43 AM [facility] Calcium 8.5 8.4 - 10.2 mg/dL 06/05/2022 5:43 AM [facility] Anion Gap 15 8 - 18 06/05/2022 5:43 AM [facility] BUN/Creatinine Ratio 19 7 - 23 06/05/2022 5:43 AM [facility] Osmolality Calculated 280 270 - 300 mOsm/kg 06/05/2022 5:43 AM [facility] eGFR by CKD-EPI 40(L) >=90 mL/min/1.7 3 m2 06/05/2022 5:43 AM [facility] Blood BLOOD SPECIMEN / Unknown Lab Venipuncture / Unknown 06/05/2022 4:58 AM CERTIFIED HEARING INSTRUMENT DISPENSER 06/05/2022 5:17 AM [facility] Deon Taylor MD LAB - CHEMISTRY [facility] Organization Address City/State/ZIP Co de Phone Number [facility] [address] [place] [address], [facility] [phone] * (ABNORMAL) GLUCOSE - POINT OF CARE (06/04/2022 8:20 PM CERTIFIED HEARING INSTRUMENT DISPENSER) Pathologist [facility] Glucose WB/POC 120(H) 70 - 115 mg/dL 06/04/2022 8:21 PM CERTIFIED HEARING INSTRUMENT DISPENSER [facility] Specimen Type Cap Fingerstick 2022 8:21 PM CERTIFIED HEARING INSTRUMENT DISPENSER [facility] Blood BLOOD SPECIMEN / Unknown 06/04/2022 8:20 PM CERTIFIED HEARING INSTRUMENT DISPENSER 06/04/2022 8:21 PM CERTIFIED HEARING INSTRUMENT DISPENSER Deon Taylor MD LAB - POINT OF CARE ORDERABLES Performing Organization Address City/[facility]/ZIP Co de Phone Number [facility] [address] [place] [address], [place] [phone] * GLUCOSE - POINT OF CARE (06/04/2022 11:51 AM CERTIFIED HEARING INSTRUMENT DISPENSER) Glucose WB/POC 111 70 - 115 mg/dL 06/04/2022 11:56 AM CERTIFIED HEARING INSTRUMENT DISPENSER [facility] Specimen Type Cap Fingerstick 2022 11:56 AM CERTIFIED HEARING INSTRUMENT DISPENSER [facility] Blood BLOOD SPECIMEN / Unknown 06/04/2022 11:51 AM CERTIFIED HEARING INSTRUMENT DISPENSER 06/04/2022 11:55 AM CERTIFIED HEARING INSTRUMENT DISPENSER Deon Taylor MD LAB - POINT OF CARE ORDERABLES Performing Organization Address [facility]/ZIP Co de Phone Number [address] [address], [place] [phone] * FL JOSÉ LUIS SURGERY (06/04/2022 11:30 AM CERTIFIED HEARING INSTRUMENT DISPENSER) Narrative [facility] RADIOLOGY - 06/04/2022 12:52 PM CERTIFIED HEARING INSTRUMENT DISPENSER Fluoroscopy was used for this exam in the OR. Please see the Operative report. Deon Taylor MD FLUOROSCOPY ORDERABL ES Performing Organization Address City/[facility]/ZIP Co de Phone Number [facility] * (ABNORMAL) GLUCOSE - POINT OF CARE (06/04/2022 6:39 AM CERTIFIED HEARING INSTRUMENT DISPENSER) Glucose WB/POC 130(H) 70 - 115 mg/dL 06/05/2022 12:40 PM CERTIFIED HEARING INSTRUMENT DISPENSER [facility] Specimen Type Venous 06/05/2022 12:40 PM CERTIFIED HEARING INSTRUMENT DISPENSER [facility] Blood BLOOD SPECIMEN / Unknown 06/04/2022 6:39 AM CERTIFIED HEARING INSTRUMENT DISPENSER 06/05/2022 12:40 PM CERTIFIED HEARING INSTRUMENT DISPENSER Deon Taylor MD LAB - POINT OF CARE ORDERABLES [facility] [address] [place] [address], [place] [phone] * TYPE + SCREEN PANEL (06/04/2022 6:39 AM CERTIFIED HEARING INSTRUMENT DISPENSER) Antibody Screen NEG 7:24 AM CERTIFIED HEARING INSTRUMENT DISPENSER [facility] BLOOD BANK LAB ABO Rh A POS 06/04/2022 7:24 AM CERTIFIED HEARING INSTRUMENT DISPENSER [facility] LAB Blood Bank BLOOD SPECIMEN / Unknown Venipuncture / Unknown 06/04/2022 6:39 AM CERTIFIED HEARING INSTRUMENT DISPENSER 06/04/2022 6:44 AM CERTIFIED HEARING INSTRUMENT DISPENSER Provider Unknown LAB - BLOOD BANK ORD ERABLES Performing Organization Address City/[facility]/ZIP Co de Phone Number [facility] LAB [address] [place] [address], [place] [phone] documented in this encounter Visit Diagnoses Diagnosis Degeneration of cervical intervertebral disc- Primary Preop examination Preoperative examination, unspecified Degeneration of cervical intervertebral disc documented in this encounter Administered Medications Inactive Administered Medications - up to 3 most recent administrations Medication Order MAR Action Action Date Dose Rate Site 0.9% NaCl infusion at 75 mL/hr, Intravenous, CONTINUOUS, Starting on Sat06/04/22 at 1330, Until Sat06/05/22 at 0735, Post-op $ New Bag/Syringe 06/05/2022 7:16 AM CERTIFIED HEARING INSTRUMENT DISPENSER 75 mL/hr $ New Bag/Syringe 06/04/2022 6:13 PM CERTIFIED HEARING INSTRUMENT DISPENSER 75 mL/ hr 0.9% NaCl injection 1-10 mL 1-10 mL, Intracatheter, PRN, Other, peripheral line flush, Starting on Sat06/06/22 at 0725, Until Sat06/08/22 at 2259, Flush peripheral IV catheter with 1-10 mL of normal saline before and after medications and prn to clear blood from the line or to verify patency. 0.9% NaCl injection 3 mL 3 mL, Intracatheter, EVERY 8 HOURS, First dose on Sat06/06/22 at 0800, Until Discontinued, Flush peripheral IV catheter with 3 mL of normal saline every 8 hours. $ Given 06/08/2022 8:08 PM CERTIFIED HEARING INSTRUMENT DISPENSER 3 mL $ Given 06/08/2022 2:36 PM CERTIFIED HEARING INSTRUMENT DISPENSER 3 mL $ Given 06/08/2022 5:08 AM CERTIFIED HEARING INSTRUMENT DISPENSER 3 mL acetaminophen (Tylenol) tablet 1,000 mg 1,000 mg, Oral, 3 TIMES DAILY, First dose on Sat06/05/22 at 1045, Until Discontinued, Patient preference for lesser PRN pain meds may be honored when the patient requests a less strong medication, a lower dose, or a less intrusive route of administration when the lesser drug, dose and route have been ordered for the patient. This patient request must be documented in the MAR. $ Given 06/08/2022 8:07 PM CERTIFIED HEARING INSTRUMENT DISPENSER 1,000 mg $ Given 06/08/2022 2:36 PM CERTIFIED HEARING INSTRUMENT DISPENSER 1,000 mg $ Given 06/08/2022 9:07 AM CERTIFIED HEARING INSTRUMENT DISPENSER 1,000 mg acetaminophen (Tylenol) tablet 650 mg 650 mg, Oral, EVERY 4 HOURS, First dose on Sat06/04/22 at 1600, Until Discontinued, Patient preference for lesser PRN pain meds may be honored when the patient requests a less strong medication, a lower dose, or a less intrusive route of administration when the lesser drug, dose and route have been ordered for the patient. This patient request must be documented in the MAR., Post-op $ Given 06/05/2022 8:34 AM CERTIFIED HEARING INSTRUMENT DISPENSER 650 mg $ Given 06/05/2022 4:00 AM CERTIFIED HEARING INSTRUMENT DISPENSER 650 mg $ Given 06/04/2022 10:28 PM CERTIFIED HEARING INSTRUMENT DISPENSER 650 mg buPROPion SR 12hr (Wellbutrin-SR) tablet 100 mg 100 mg, Oral, 2 TIMES DAILY, First dose on Sat06/04/22 at 1330, Until Discontinued, Do not crush, chew, or cut in half. $ Given 06/08/2022 8:07 PM CERTIFIED HEARING INSTRUMENT DISPENSER 100 mg $ Given 06/08/2022 9:07 AM CERTIFIED HEARING INSTRUMENT DISPENSER 100 mg $ Given 06/07/2022 8:20 PM CERTIFIED HEARING INSTRUMENT DISPENSER 100 mg carvedilol (Coreg) tablet 6.25 mg 6.25 mg, Oral, 2 TIMES DAILY, First dose on Sat06/04/22 at 2100, Until Discontinued, Take with food $ Given 06/08/2022 8:08 PM CERTIFIED HEARING INSTRUMENT DISPENSER 6.25 mg $ Given 06/08/2022 9:07 AM CERTIFIED HEARING INSTRUMENT DISPENSER 6.25 mg $ Given 06/07/2022 8:20 PM CERTIFIED HEARING INSTRUMENT DISPENSER 6.25 mg ceFAZolin (Ancef) 2 g in 0.9% NaCl IV 50 mL IVPB 2 g, at 100 mL/hr, Intravenous, EVERY 8 HOURS, 2 doses, First dose on Sat06/04/22 at 1930, Last dose on Sat06/05/22 at 0330, Indication for anti-infective therapy: Surgical prophylaxis, Post-op $ New Bag/Syringe 06/05/2022 4:02 AM CERTIFIED HEARING INSTRUMENT DISPENSER 2 g 100 m L/hr $ New Bag/Syringe 06/04/2022 8:34 PM CERTIFIED HEARING INSTRUMENT DISPENSER 2 g 100 mL /hr dextrose 10 % IV bolus 12.5 g, at 468.75 mL/hr, Intravenous, PRN, Other, Bedside Glucose less than 70 mg/dL -If NOT able to eat and/or NPO and with IV Access, Starting on Sat06/04/22 at 1315, Until Sat06/08/22 at 2259, If NOT able to eat and/or NPO and with IV Access: For Bedside Glucose 54-69 mg/dL give 12.5 g Dextrose IV STAT For Bedside Glucose LESS than 54 mg/dl verify with a second Bedside Glucose (from a different site) and give 25 g Dextrose IV STAT Re-check and Re-treat blood glucose EVERY , 10-25 minutes until blood glucose GREATER than or equal to 80 mg/dl. NOTIFY PROVIDER OF HYPOGLYCEMIC EVENT., Post-op dextrose 10 % IV bolus 25 g, at 937.5 mL/hr, Intravenous, PRN, Other, Bedside Glucose less than 70 mg/dL -If NOT able to eat and/or NPO and with IV Access, Starting on Sat06/04/22 at 1315, Until Sat06/08/22 at 2259, If NOT able to eat and/or NPO and with IV Access: For Bedside Glucose 54-69 mg/dL - give 12.5 g Dextrose IV STAT For Bedside Glucose LESS than 54 mg/dl - verify with a second Bedside Glucose (from a different site) and give 25 g Dextrose IV STAT Re-check and Re-treat blood glucose EVERY - 10-25 minutes until blood glucose GREATER than or equal to 80 mg/dl. - If repeat bedside glucose 54-79 give 12.5 g Dextrose IV STAT NOTIFY PROVIDER OF HYPOGLYCEMIC EVENT., Post-op escitalopram (Lexapro) tablet 20 mg 20 mg, Oral, DAILY, First dose on Sat06/04/22 at 1330, Until Discontinued $ Given 06/08/2022 9:07 AM CERTIFIED HEARING INSTRUMENT DISPENSER 20 mg $ Given 06/07/2022 8:42 AM CERTIFIED HEARING INSTRUMENT DISPENSER 20 mg $ Given 06/06/2022 8:20 AM CERTIFIED HEARING INSTRUMENT DISPENSER 20 mg fentaNYL (PF) (Sublimaze) injection 50 mcg 50 mcg, Intravenous, EVERY 10 MIN PRN, Moderate Pain, 4 doses, Starting on Sat06/04/22 at 1157, Until Sat06/04/22 at 1314, Maximum total of 4 doses. If patient reaches max total dose, please consult anesthesiologist prior to further administration of pain meds. Hold pain meds if there are signs of hypoventilation. Patient preference for lesser PRN pain meds may be honored when the patient requests a less strong medication, a lower dose, or a less intrusive route of administration when the lesser drug, dose and route have been ordered for the patient. This patient request must be documented in the MAR., PACU $ Given 06/04/2022 12:20 PM CERTIFIED HEARING INSTRUMENT DISPENSER 50 mcg $ Given 06/04/2022 12:00 PM CERTIFIED HEARING INSTRUMENT DISPENSER 50 mcg furosemide (Lasix) tablet 10 mg 10 mg, Oral, DAILY, First dose on Sat06/05/22 at 0900, Until Discontinued $ Given 06/05/2022 8:34 AM CERTIFIED HEARING INSTRUMENT DISPENSER 10 mg gabapentin (Neurontin) capsule 300 mg 300 mg, Oral, 3 TIMES DAILY, First dose on Sat06/05/22 at 0800, Until Discontinued $ Given 06/08/2022 8:08 PM CERTIFIED HEARING INSTRUMENT DISPENSER 300 m g $ Given 06/08/2022 2:36 PM CERTIFIED HEARING INSTRUMENT DISPENSER 300 mg $ Given 06/08/2022 9:07 AM CERTIFIED HEARING INSTRUMENT DISPENSER 300 mg HYDROmorphone (Dilaudid) injection 0.5 mg 0.5 mg, Intravenous, EVERY 10 MIN PRN, Severe Pain, 4 doses, Starting on Sat06/04/22 at 1157, Until Sat06/04/22 at 1314, Maximum total of 4 doses If patient reaches max total dose, please consult anesthesiologist prior to further administration of pain meds. Hold pain meds if there are signs of hypoventilation. Patient preference for lesser PRN pain meds may be honored when the patient requests a less strong medication, a lower dose, or a less intrusive route of administration when the lesser drug, dose and route have been ordered for the patient. This patient request must be documented in the MAR., PACU $ Given 06/04/2022 12:40 PM CERTIFIED HEARING INSTRUMENT DISPENSER 0.5 mg insulin lispro (HumaLOG;ADMelog) 100 UNIT/ML pen 0-6 Units 0-6 Units, Subcutaneous, 3 TIMES DAILY WITH MEALS, First dose on Sat06/04/22 at 1800, Until Discontinued, DO NOT HOLD CORRECTION BOLUS EVEN IF PATIENT IS NPO. If patient is eating meals and has orders for Mealtime Insulin Bolus, combine and give at the same time. BEDSIDE GLUCOSE MUST BE PERFORMED AND DOCUMENTED WITHIN 30-60 MINUTES OF CORRECTION INSULIN ADMINISTRATION. BG (mg/dL) LESS than 70 = follow Hypoglycemic guidelines 150-200 = give 1 unit 201-250 = give 2 units, 251-300 = give 3 units 301-350 = give 4 units 351-400 = give 5 units and notify physician GREATER than 400 = give 6 units and notify physician, Post-op $ Given 06/07/2022 12:10 PM CERTIFIED HEARING INSTRUMENT DISPENSER 1 Units Left Arm $ Given 06/06/2022 5:28 PM CERTIFIED HEARING INSTRUMENT DISPENSER 2 Units Ri ght Arm $ Given 06/05/2022 6:00 PM CERTIFIED HEARING INSTRUMENT DISPENSER 1 Units Le ft Arm iron sucrose (Venofer) injection 200 mg 200 mg, Intravenous, DAILY, 5 doses, First dose on Sat06/06/22 at 0930, Last dose on Sat06/10/22 at 0900, May administer up to 200 mg of undiluted solution IVP slowly over 5 minutes $ Given 06/08/2022 9:06 AM CERTIFIED HEARING INSTRUMENT DISPENSER 200 mg $ Given 06/07/2022 8:42 AM CERTIFIED HEARING INSTRUMENT DISPENSER 200 mg $ Given 06/06/2022 10:37 AM CERTIFIED HEARING INSTRUMENT DISPENSER 200 mg lactated ringers infusion at 20 mL/hr, Intravenous, PRE-OP CONTINUOUS, Starting on Sat06/04/22 at 0545, Until Sat06/04/22 at 1314, Pre-op Restarted 06/04/2022 9:36 AM CERTIFIED HEARING INSTRUMENT DISPENSER $ New Bag/Syringe 06/04/2022 6:42 AM CERTIFIED HEARING INSTRUMENT DISPENSER 20 mL/ hr latanoprost (Xalatan) 0.005 % ophthalmic solution 1 drop 1 drop, Each Eye, AT BEDTIME, First dose on Sat06/04/22 at 2100, Until Discontinued, Allow at least 5 minutes between administration of multiple ophthalmic products Once opened, store at room temperature $ Given 06/08/2022 8:08 PM CERTIFIED HEARING INSTRUMENT DISPENSER 1 drop $ Given 06/07/2022 8:22 PM CERTIFIED HEARING INSTRUMENT DISPENSER 1 drop $ Given 06/06/2022 8:27 PM CERTIFIED HEARING INSTRUMENT DISPENSER 1 drop lisinopril (Prinivil; Zestril) tablet 20 mg 20 mg, Oral, DAILY, First dose on Sat06/05/22 at 0900, Until Discontinued $ Given 06/08/2022 9:07 AM CERTIFIED HEARING INSTRUMENT DISPENSER 20 mg $ Given 06/07/2022 8:41 AM CERTIFIED HEARING INSTRUMENT DISPENSER 20 mg $ Given 06/06/2022 8:20 AM CERTIFIED HEARING INSTRUMENT DISPENSER 20 mg magnesium sulfate 2 g in 50 mL bolus 2 g, at 25 mL/hr, Administer over 120 Minutes, Intravenous, ONCE, 1 dose, On Sat06/06/22 at 0745, Infuse at 1 gm/hr $ New Bag/Syringe 06/06/2022 8:17 AM CERTIFIED HEARING INSTRUMENT DISPENSER 2 g 25 mL/hr magnesium sulfate 2 g in 50 mL bolus 2 g, at 25 mL/hr, Administer over 120 Minutes, Intravenous, ONCE, 1 dose, On Sat06/08/22 at 0900, Infuse at 1 gm/hr $ New Bag/Syringe 06/08/2022 9:11 AM CERTIFIED HEARING INSTRUMENT DISPENSER 2 g 25 mL/hr meclizine (Antivert) tablet 25 mg 25 mg, Oral, 3 TIMES DAILY PRN, Dizziness, Starting on Sat06/07/22 at 0945, Until Sat06/08/22 at 2259 $ Given 06/08/2022 10:50 AM CERTIFIED HEARING INSTRUMENT DISPENSER 25 mg $ Given 06/07/2022 1:57 PM CERTIFIED HEARING INSTRUMENT DISPENSER 25 mg methocarbamol (Robaxin) tablet 750 mg 750 mg, Oral, EVERY 6 HOURS PRN, Muscle Spasms, Starting on Sat06/04/22 at 1315, Until Sat06/05/22 at 1018, Post-op $ Given 06/05/2022 5:39 AM CERTIFIED HEARING INSTRUMENT DISPENSER 750 mg $ Given 06/04/2022 10:28 PM CERTIFIED HEARING INSTRUMENT DISPENSER 750 mg ondansetron (Zofran) injection 4 mg 4 mg, Intravenous, EVERY 6 HOURS PRN, Nausea/Vomiting, Starting on Sat06/05/22 at 0759, Until Sat06/08/22 at 2259, Administer over 2 to 5 minutes. $ Given 06/06/2022 8:26 PM CERTIFIED HEARING INSTRUMENT DISPENSER 4 mg oxyCODONE (immediate release) (Roxicodone) tablet 10 mg 10 mg, Oral, EVERY 4 HOURS PRN, Severe Pain, Starting on Sat06/04/22 at 1315, Until Sat06/05/22 at 1002, Patient preference for lesser PRN pain meds may be honored when the patient requests a less strong medication, a lower dose, or a less intrusive route of administration when the lesser drug, dose and route have been ordered for the patient. This patient request must be documented in the MAR., Post-op $ Given 06/05/2022 8:33 AM CERTIFIED HEARING INSTRUMENT DISPENSER 10 mg oxyCODONE (immediate release) (Roxicodone) tablet 5 mg 5 mg, Oral, EVERY 4 HOURS PRN, Mild Pain, Moderate Pain, Starting on Sat06/04/22 at 1315, Until Sat06/05/22 at 1009, Patient preference for lesser PRN pain meds may be honored when the patient requests a less strong medication, a lower dose, or a less intrusive route of administration when the lesser drug, dose and route have been ordered for the patient. This patient request must be documented in the MAR., Post-op $ Given 06/04/2022 10:27 PM CERTIFIED HEARING INSTRUMENT DISPENSER 5 mg $ Given 06/04/2022 6:08 PM CERTIFIED HEARING INSTRUMENT DISPENSER 5 mg oxyCODONE (immediate release) (Roxicodone) tablet 5 mg 5 mg, Oral, EVERY 4 HOURS PRN, Moderate Pain, Severe Pain, Starting on Sat06/05/22 at 1009, Until Sat06/08/22 at 2259, Patient preference for lesser PRN pain meds may be honored when the patient requests a less strong medication, a lower dose, or a less intrusive route of administration when the lesser drug, dose and route have been ordered for the patient. This patient request must be documented in the MAR., Post-op $ Given 06/08/2022 10:50 AM CERTIFIED HEARING INSTRUMENT DISPENSER 5 mg $ Given 06/06/2022 8:27 PM CERTIFIED HEARING INSTRUMENT DISPENSER 5 mg $ Given 06/06/2022 4:57 AM CERTIFIED HEARING INSTRUMENT DISPENSER 5 mg pantoprazole EC (Protonix) tablet 40 mg 40 mg, Oral, DAILY, First dose on Sat06/04/22 at 1330, Until Discontinued, Do not crush, chew, or cut in half. $ Given 06/08/2022 9:07 AM CERTIFIED HEARING INSTRUMENT DISPENSER 40 mg $ Given 06/07/2022 8:41 AM CERTIFIED HEARING INSTRUMENT DISPENSER 40 mg $ Given 06/06/2022 8:20 AM CERTIFIED HEARING INSTRUMENT DISPENSER 40 mg polyethylene glycol 3350 (Miralax) packet 17 g 17 g, Oral, DAILY, First dose (after last modification) on Sat06/05/22 at 0900, Until Discontinued, Mix in 8 ounces of water, juice, soda, coffee or tea prior to administration, Post-op $ Given 06/06/2022 8:20 AM CERTIFIED HEARING INSTRUMENT DISPENSER 17 g $ Given 06/05/2022 8:33 AM CERTIFIED HEARING INSTRUMENT DISPENSER 17 g polyethylene glycol 3350 (Miralax) packet 17 g 17 g, Oral, 2 TIMES DAILY, First dose (after last modification) on Sat06/06/22 at 2100, Until Discontinued, Mix in 8 ounces of water, juice, soda, coffee or tea prior to administration, Post-op $ Given 06/06/2022 8:28 PM CERTIFIED HEARING INSTRUMENT DISPENSER 17 g polyethylene glycol 3350 (Miralax) packet 17 g 17 g, Oral, DAILY PRN, Constipation, Starting on Sat06/07/22 at 0906, Until Sat06/08/22 at 2259, Mix in 8 ounces of water, juice, soda, coffee or tea prior to administration, Post-op pravastatin (Pravachol) tablet 40 mg 40 mg, Oral, AT BEDTIME, First dose on Sat06/04/22 at 2100, Until Discontinued $ Given 06/08/2022 8:07 PM CERTIFIED HEARING INSTRUMENT DISPENSER 40 mg $ Given 06/07/2022 8:20 PM CERTIFIED HEARING INSTRUMENT DISPENSER 40 mg $ Given 06/06/2022 8:27 PM CERTIFIED HEARING INSTRUMENT DISPENSER 40 mg QUEtiapine (SEROquel) tablet 100 mg 100 mg, Oral, 2 TIMES DAILY, First dose (after last reorder) on Sat06/04/22 at 1445, Until Discontinued $ Given 06/05/2022 8:34 AM CERTIFIED HEARING INSTRUMENT DISPENSER 100 mg $ Given 06/04/2022 8:34 PM CERTIFIED HEARING INSTRUMENT DISPENSER 100 mg QUEtiapine (SEROquel) tablet 100 mg 100 mg, Oral, DAILY, First dose (after last modification) on Sat06/06/22 at 0900, Until Discontinued $ Given 06/07/2022 8:41 AM CERTIFIED HEARING INSTRUMENT DISPENSER 100 mg $ Given 06/06/2022 8:20 AM CERTIFIED HEARING INSTRUMENT DISPENSER 100 mg QUEtiapine (SEROquel) tablet 100 mg 100 mg, Oral, EVERY EVENING, First dose (after last modification) on Sat06/08/22 at 1700, Until Discontinued $ Given 06/08/2022 6:27 PM CERTIFIED HEARING INSTRUMENT DISPENSER 100 mg QUEtiapine (SEROquel) tablet 50 mg 50 mg, Oral, Once, 1 dose, On Sat06/07/22 at 2000 $ Given 06/07/2022 8:22 PM CERTIFIED HEARING INSTRUMENT DISPENSER 50 mg saline nasal spray ([place]; [place]) 0.65 % nasal spray 2 spray 2 spray, Each Nostril, EVERY 1 HOUR PRN, Dry Nose, Starting on Sat06/06/22 at 0946, Until Sat06/08/22 at 2259 senna-docusate (Senokot-S) tablet 1 tablet 1 tablet, Oral, DAILY, First dose on Sat06/04/22 at 1330, Until Discontinued, Post-op $ Given 06/06/2022 8:20 AM CERTIFIED HEARING INSTRUMENT DISPENSER 1 tablet $ Given 06/05/2022 8:34 AM CERTIFIED HEARING INSTRUMENT DISPENSER 1 tablet sodium - potassium phosphates (K Phos Neutral) tablet 2 tablet 2 tablet, Oral, ONCE, 1 dose, On Sat06/07/22 at 0900, Contains Phos 8 mmol, K+ 1.1 mEq, Na 13 mEq per tablet $ Given 06/07/2022 8:41 AM CERTIFIED HEARING INSTRUMENT DISPENSER 2 tablets vitamin D3 (Cholecalciferol) 10 MCG (400 UNIT) tablet 400 Units 400 Units, Oral, DAILY, First dose on Sat06/08/22 at 0900, Until Discontinued, 400 units = 10 mcg $ Given 06/08/2022 9:07 AM CERTIFIED HEARING INSTRUMENT DISPENSER 400 Units vitamin D3 (Cholecalciferol) 10 MCG (400 UNIT) tablet 800 Units 800 Units, Oral, DAILY, First dose (after last modification) on Sat06/09/22 at 0900, Until Discontinued, 400 units = 10 mcg documented in this encounter Active and Recently Administered Medications Times are shown in CERTIFIED HEARING INSTRUMENT DISPENSER. Scheduled Medication Order 06/06/2022 06/07/202206/0806/08/2022 0.9% NaCl injection 3 mL(Linked Group 1) 3 mL, Intracatheter, EVERY 8 HOURS, First dose on Sat06/06/22 at 0800, Until Discontinued, Flush peripheral IV catheter with 3 mL of normal saline every 8 hours. 0819 ($ Given - Provider: Makenzie Choi RN)1423 ($ Given - Provider: Makenzie Choi RN)2027 ($ Given - Provider: Vivian Boo RN) 0441 ($ Given - Provider: Vivian Boo RN)1357 ($ Given - Provider: SN Anabel)2021 ($ Given - Provider: Vivian Boo RN) 0508 ($ Given - Provider: Vivian Boo RN)1436 ($ Given - Provider: Makenzie Choi RN)2007 ($ Given - Provider: Sammi Zayas RN) acetaminophen (Tylenol) tablet 1,000 mg 1,000 mg, Oral, 3 TIMES DAILY, First dose on Sat06/05/22 at 1045, Until Discontinued, Patient preference for lesser PRN pain meds may be honored when the patient requests a less strong medication, a lower dose, or a less intrusive route of administration when the lesser drug, dose and route have been ordered for the patient. This patient request must be documented in the MAR. 0820 ($ Given - Provider: Makenzie Choi RN)1423 ($ Given - Provider: Makenzie Choi RN)2026 ($ Given - Provider: Vivian Boo RN) 0841 ($ Given - Provider: SN Anabel)1357 ($ Given - Provider: SN Anabel)2019 ($ Given - Provider: Vivian Boo RN) 0907 ($ Given - Provider: Makenzie Choi RN)1436 ($ Given - Provider: Makenzie Choi RN)2006 ($ Given - Provider: Sammi Zayas RN) buPROPion SR 12hr (Wellbutrin-SR) tablet 100 mg 100 mg, Oral, 2 TIMES DAILY, First dose on Sat06/04/22 at 1330, Until Discontinued, Do not crush, chew, or cut in half. 0820 ($ Given - Provider: Makenzie Choi RN)2027 ($ Given - Provider: Vivian Boo RN) 0841 ($ Given - Provider: SN Anabel)2019 ($ Given - Provider: Vivian Boo RN) 09 ($ Given - Provider: Makenzie Choi RN)2006 ($ Given - Provider: Sammi Zayas RN) carvedilol (Coreg) tablet 6.25 mg 6.25 mg, Oral, 2 TIMES DAILY, First dose on Sat06/04/22 at 2100, Until Discontinued, Take with food 0820 ($ Given - Provider: Makenzie Choi RN)2223 ($ Given - Provider: Vivian Boo RN) 0841 ($ Given - Provider: SN Anabel)2019 ($ Given - Provider: Vivian Boo RN) 09 ($ Given - Provider: Makenzie Choi RN)2007 ($ Given - Provider: Sammi Zayas RN) escitalopram (Lexapro) tablet 20 mg 20 mg, Oral, DAILY, First dose on Sat06/04/22 at 1330, Until Discontinued 08 ($ Given - Provider: Makenzie Choi RN) 0842 ($ Given - Provider: SN Anabel) 09 ($ Given - Provider: Makenzie Choi RN) gabapentin (Neurontin) capsule 300 mg 300 mg, Oral, 3 TIMES DAILY, First dose on Sat06/05/22 at 0800, Until Discontinued 0820 ($ Given - Provider: Makenzie Choi RN)1423 ($ Given - Provider: Makenzie Choi RN)2026 ($ Given - Provider: Vivian Boo RN) 0842 ($ Given - Provider: SN Anabel)1357 ($ Given - Provider: SN Anabel)2019 ($ Given - Provider: Vivian Boo RN) 09 ($ Given - Provider: Makenzie Choi RN)1436 ($ Given - Provider: Makenzie Choi RN)2007 ($ Given - Provider: Sammi Zayas RN) insulin lispro (HumaLOG;ADMelog) 100 UNIT/ML pen 0-6 Units (CANCELED) 0-6 Units, Subcutaneous, 3 TIMES DAILY WITH MEALS, First dose on Sat06/04/22 at 1800, Until Discontinued, DO NOT HOLD CORRECTION BOLUS EVEN IF PATIENT IS NPO. If patient is eating meals and has orders for Mealtime Insulin Bolus, combine and give at the same time. BEDSIDE GLUCOSE MUST BE PERFORMED AND DOCUMENTED WITHIN 30-60 MINUTES OF CORRECTION INSULIN ADMINISTRATION. BG (mg/dL) LESS than 70 = follow Hypoglycemic guidelines 150-200 = give 1 unit 201-250 = give 2 units, 251-300 = give 3 units 301-350 = give 4 units 351-400 = give 5 units and notify physician GREATER than 400 = give 6 units and notify physician, Post-op 0816 (Not Administered - Provider: Makenzie Choi RN - Reason: Per Administration Instructions)1200 (Not Administered - Provider: Makenzie Choi RN - Reason: See Comments)1728 ($ Given - Provider: Makenzie Choi RN) 0830 (Not Administered - Provider: SN Anabel - Reason: Per Administration Instructions)1210 ($ Given - Provider: Makenzie Choi RN)1805 (Not Administered - Provider: Makenzie Choi RN - Reason: Per Administration Instructions) 0823 (Not Administered - Provider: Makenzie Choi RN - Reason: Per Administration Instructions) iron sucrose (Venofer) injection 200 mg 200 mg, Intravenous, DAILY, 5 doses, First dose on Sat06/06/22 at 0930, Last dose on Sat06/10/22 at 0900, May administer up to 200 mg of undiluted solution IVP slowly over 5 minutes 1037 ($ Given - Provider: Makenzie Choi RN) 0842 ($ Given - Provider: SN Anabel) 0906 ($ Given - Provider: Makenzie Choi RN) latanoprost (Xalatan) 0.005 % ophthalmic solution 1 drop 1 drop, Each Eye, AT BEDTIME, First dose on Sat06/04/22 at 2100, Until Discontinued, Allow at least 5 minutes between administration of multiple ophthalmic products Once opened, store at room temperature 2026 ($ Given - Provider: Vivian Boo RN) 2021 ($ Given - Provider: Vivian Boo RN) 2007 ($ Given - Provider: Sammi Zayas RN) lisinopril (Prinivil; Zestril) tablet 20 mg 20 mg, Oral, DAILY, First dose on Sat06/05/22 at 0900, Until Discontinued 0820 ($ Given - Provider: Makenzie Choi RN) 0841 ($ Given - Provider: SN Anabel) 0907 ($ Given - Provider: Makenzie Choi RN) magnesium sulfate 2 g in 50 mL bolus (COMPLETED) 2 g, at 25 mL/hr, Administer over 120 Minutes, Intravenous, ONCE, 1 dose, On Sat06/06/22 at 0745, Infuse at 1 gm/hr 0817 ($ New Bag/Syringe - Provider: Makenzie Choi RN)1050 (Stopped - Provider: Makenzie Choi RN) magnesium sulfate 2 g in 50 mL bolus (COMPLETED) 2 g, at 25 mL/hr, Administer over 120 Minutes, Intravenous, ONCE, 1 dose, On Sat06/08/22 at 0900, Infuse at 1 gm/hr 0911 ($ New Bag/Syringe - Provider: Makenzie Choi RN)1130 (Stopped - Provider: Makenzie Choi RN) pantoprazole EC (Protonix) tablet 40 mg 40 mg, Oral, DAILY, First dose on Sat06/04/22 at 1330, Until Discontinued, Do not crush, chew, or cut in half. 0820 ($ Given - Provider: Makenzie Choi RN) 0841 ($ Given - Provider: SN Anabel) 0907 ($ Given - Provider: Makenzie Choi RN) polyethylene glycol 3350 (Miralax) packet 17 g (CANCELED) 17 g, Oral, DAILY, First dose (after last modification) on Sat06/05/22 at 0900, Until Discontinued, Mix in 8 ounces of water, juice, soda, coffee or tea prior to administration, Post-op 0820 ($ Given - Provider: Makenzie Choi RN) polyethylene glycol 3350 (Miralax) packet 17 g (CANCELED) 17 g, Oral, 2 TIMES DAILY, First dose (after last modification) on Sat06/06/22 at 2100, Until Discontinued, Mix in 8 ounces of water, juice, soda, coffee or tea prior to administration, Post-op 2027 ($ Given - Provider: Vivian Boo RN) pravastatin (Pravachol) tablet 40 mg 40 mg, Oral, AT BEDTIME, First dose on Sat06/04/22 at 2100, Until Discontinued 2026 ($ Given - Provider: Vivian Boo RN) 2019 ($ Given - Provider: Vivian Boo RN) 2006 ($ Given - Provider: Sammi Zayas RN) QUEtiapine (SEROquel) tablet 100 mg (CANCELED) 100 mg, Oral, DAILY, First dose (after last modification) on Sat06/06/22 at 0900, Until Discontinued 08 ($ Given - Provider: Makenzie Choi RN) 0841 ($ Given - Provider: SN Anabel) QUEtiapine (SEROquel) tablet 100 mg 100 mg, Oral, EVERY EVENING, First dose (after last modification) on Sat06/08/22 at 1700, Until Discontinued 1826 ($ Given - Provider: Makenzie Choi RN) QUEtiapine (SEROquel) tablet 50 mg (COMPLETED) 50 mg, Oral, Once, 1 dose, On Sat06/07/22 at 1999 2021 ($ Given - Provider: Vivian Boo RN) senna-docusate (Senokot-S) tablet 1 tablet (CANCELED) 1 tablet, Oral, DAILY, First dose on Sat06/04/22 at 1330, Until Discontinued, Post-op 08 ($ Given - Provider: Makenzie Choi RN) sodium - potassium phosphates (K Phos Neutral) tablet 2 tablet (COMPLETED) 2 tablet, Oral, ONCE, 1 dose, On Sat06/07/22 at 0900, Contains Phos 8 mmol, K+ 1.1 mEq, Na 13 mEq per tablet 0841 ($ Given - Provider: SN Anabel) vitamin D3 (Cholecalciferol) 10 MCG (400 UNIT) tablet 400 Units (CANCELED) 400 Units, Oral, DAILY, First dose on Sat06/08/22 at 0900, Until Discontinued, 400 units = 10 mcg 0907 ($ Given - Provider: Makenzie Choi RN) vitamin D3 (Cholecalciferol) 10 MCG (400 UNIT) tablet 800 Units 800 Units, Oral, DAILY, First dose (after last modification) on 06/09/22 at 0900, Until Discontinued, 400 units = 10 mcg PRN Medication Order 06/06/2022 06/07/2022 06/08/2022 0.9% NaCl injection 1-10 mL(Linked Group 1) 1-10 mL, Intracatheter, PRN, Other, peripheral line flush, Starting on Sat06/06/22 at 0725, Until Sat06/08/22 at 2259, Flush peripheral IV catheter with 1-10 mL of normal saline before and after medications and prn to clear blood from the line or to verify patency. dextrose 10 % IV bolus(Linked Group 2) 12.5 g, at 468.75 mL/hr, Intravenous, PRN, Other, Bedside Glucose less than 70 mg/dL -If NOT able to eat and/or NPO and with IV Access, Starting on 06/04/22 at 1315, Until Sat06/08/22 at 2259, If NOT able to eat and/or NPO and with IV Access: For Bedside Glucose 54-69 mg/dL give 12.5 g Dextrose IV STAT For Bedside Glucose LESS than 54 mg/dl verify with a second Bedside Glucose (from a different site) and give 25 g Dextrose IV STAT Re-check and Re-treat blood glucose EVERY , 10-25 minutes until blood glucose GREATER than or equal to 80 mg/dl. NOTIFY PROVIDER OF HYPOGLYCEMIC EVENT., Post-op dextrose 10 % IV bolus(Linked Group 2) 25 g, at 937.5 mL/hr, Intravenous, PRN, Other, Bedside Glucose less than 70 mg/dL -If NOT able to eat and/or NPO and with IV Access, Starting on 06/04/22 at 1315, Until Sat06/08/22 at 2259, If NOT able to eat and/or NPO and with IV Access: For Bedside Glucose 54-69 mg/dL - give 12.5 g Dextrose IV STAT For Bedside Glucose LESS than 54 mg/dl - verify with a second Bedside Glucose (from a different site) and give 25 g Dextrose IV STAT Re-check and Re-treat blood glucose EVERY - 10-25 minutes until blood glucose GREATER than or equal to 80 mg/dl. - If repeat bedside glucose 54-79 give 12.5 g Dextrose IV STAT NOTIFY PROVIDER OF HYPOGLYCEMIC EVENT., Post-op glucagon (Glucagen) injection 1 mg 1 mg, Subcutaneous, PRN, Bedside Glucose less than 70 mg/dL - If NOT able to eat and/or NPO and withOUT IV Access, Starting on Sat06/04/22 at 1315, Until Sat06/08/22 at 2259, If NOT able to eat and/or NPO and NO IV Access: For Bedside glucose 54-69 mg/dL - Give 1 mg SQ For Bedside Glucose LESS than 54 mg/dl - verify with a second bedside glucose (from a different site) - Give 1 mg SQ Re-check and Re-treat blood glucose EVERY 10-25 minutes until blood glucose GREATER than or equal to 80 mg/dl. NOTIFY PROVIDER OF HYPOGLYCEMIC EVENT. Reconstitute vial with 1 mL of sterile water for injection for a final concentration of 1 mg/mL; shake vial gently; use immediately and discard unused portion, Post-op glucose (Diabetic Use) (Dex4 Glucose) oral liquid Oral, PRN, Other, Bedside Glucose less than 70 mg/dL -If able to eat and does not have swallowing difficulties, Starting on Sat06/04/22 at 1315, Until Sat06/08/22 at 2259, If able to eat and can swallow thin liquids: For Bedside Glucose 54 - 69 mg/dL Give 15 grams of oral carbohydrates - 1 glucose liquid (see MAR) If patient refuses glucose liquid, then offer: - 4 ounces of fruit juice OR - 4 ounces non-diet soda OR - 8 ounces of fat-free milk For Bedside Glucose LESS than 54 mg/dL - verify with a second Bedside Glucose (from a different site) - If pt is symptomatic, do not delay treatment - If accuracy of the POC glucose is in question, confirm glucose with a STAT laboratory test. Give 30 grams of oral carbohydrates - 2 glucose liquid (see MAR) If patient refuses glucose liquid, then offer: - 8 ounces of fruit juice OR - 8 ounces non-diet soda OR - 16 ounces of fat-free milk Re-check and Re-treat blood glucose EVERY 10-25 minutes until blood glucose GREATER than or equal to 80 mg/dl. - If on recheck, bedside glucose 54-79 mg/dL - Give 15 grams of oral carbohydrates (see above for choices) NOTIFY PROVIDER OF HYPOGLYCEMIC EVENT., Post-op glucose (Diabetic Use) oral gel Oral, PRN, Other, Bedside Glucose less than 70 mg/dL -If able to eat and does not have swallowing difficulties, Starting on 06/04/22 at 1315, Until Sat06/08/22 at 2259, If able to eat and is better able to swallow gel: For Bedside Glucose 54 - 69 mg/dL Give 15 grams of oral carbohydrates - 1 glucose gel (see MAR) If patient refuses glucose gel, then offer: - 4 ounces of fruit juice OR - 4 ounces non-diet soda OR - 8 ounces of fat-free milk For Bedside Glucose LESS than 54 mg/dL verify with a second Bedside Glucose (from a different site) - If pt is symptomatic, do not delay treatment - If accuracy of the POC glucose is in question, confirm glucose with a STAT laboratory test Give 30 grams of oral carbohydrates - 2 glucose gels (see MAR) If patient refuses glucose gel, then offer: - 8 ounces of fruit juice OR - 8 ounces non-diet soda OR - 16 ounces of fat-free milk Re-check and Re-treat blood glucose EVERY 10-25 minutes until blood glucose GREATER than or equal to 80 mg/dl. - If on recheck, bedside glucose 54-79 mg/dL - Give 15 grams of oral carbohydrates (see above for choices) NOTIFY PROVIDER OF HYPOGLYCEMIC EVENT., Post-op glucose chew tablet 4 tablet 4 tablet (16 g), Oral, PRN, Other, Bedside Glucose less than 70 mg/dL -If able to eat and does not have swallowing difficulties, Starting on Sat06/04/22 at 1315, Until Sat06/08/22 at 2259, If able to eat and does not have swallowing difficulties: For Bedside Glucose 54 - 69 mg/dL Give 16 grams of oral carbohydrates - 4 glucose tabs (see MAR) If patient refuses glucose tabs, then offer: - 4 ounces of fruit juice OR - 4 ounces non-diet soda OR - 8 ounces of fat-free milk For Bedside Glucose LESS than 54 mg/dL - verify with a second Bedside Glucose (from a different site) - If pt is symptomatic, do not delay treatment - If accuracy of the POC glucose is in question, confirm glucose with a STAT laboratory test. Give 32 grams of oral carbohydrates - 8 glucose tabs (see MAR) If patient refuses glucose gel, then offer: - 8 ounces of fruit juice OR - 8 ounces non-diet soda OR - 16 ounces of fat-free milk Re-check and Re-treat blood glucose EVERY 10-25 minutes until blood glucose GREATER than or equal to 80 mg/dl. - If on recheck, bedside glucose 54-79 mg/dL - Give 15 grams of oral carbohydrates (see above for choices). NOTIFY PROVIDER OF HYPOGLYCEMIC EVENT., Post-op meclizine (Antivert) tablet 25 mg 25 mg, Oral, 3 TIMES DAILY PRN, Dizziness, Starting on Jeanette 06/07/22 at 0945, Until Sat06/08/22 at 2259 1357 ($ Given - Provider: SN Anabel) 1050 ($ Given - Provider: Makenzie Choi, RN) ondansetron (Zofran) injection 4 mg 4 mg, Intravenous, EVERY 6 HOURS PRN, Nausea/Vomiting, Starting on Sat06/05/22 at 0759, Until Sat06/08/22 at 2259, Administer over 2 to 5 minutes. 2025 ($ Given - Provider: Vivian Boo, SANTI) oxyCODONE (immediate release) (Roxicodone) tablet 5 mg(Linked Group 3) 5 mg, Oral, EVERY 4 HOURS PRN, Moderate Pain, Severe Pain, Starting on 06/05/22 at 1009, Until Sat06/08/22 at 2259, Patient preference for lesser PRN pain meds may be honored when the patient requests a less strong medication, a lower dose, or a less intrusive route of administration when the lesser drug, dose and route have been ordered for the patient. This patient request must be documented in the MAR., Post-op 0457 ($ Given - Provider: Slim Camacho RN)7 ($ Given - Provider: Vivian Boo RN) 1050 ($ Given - Provider: Maknezie Choi, SANTI) polyethylene glycol 3350 (Miralax) packet 17 g 17 g, Oral, DAILY PRN, Constipation, Starting on Jeanette 06/07/22 at 0906, Until Sat06/08/22 at 2259, Mix in 8 ounces of water, juice, soda, coffee or tea prior to administration, Post-op saline nasal spray ([place]; [place]) 0.65 % nasal spray 2 spray 2 spray, Each Nostril, EVERY 1 HOUR PRN, Dry Nose, Starting on Sat06/06/22 at 0946, Until Sat06/08/22 at 2259 Linked Groups Order Group 1: SALINE LOCK, INSERT AND MAINTAIN (CANCELED) Routine, CONTINUOUS, Starting on Sat06/06/22 at 0730, Until Specified, New collection And 0.9% NaCl injection 3 mLJump to med 3 mL, Intracatheter, EVERY 8 HOURS, First dose on Sat06/06/22 at 0800, Until Discontinued, Flush peripheral IV catheter with 3 mL of normal saline every 8 hours. And 0.9% NaCl injection 1-10 mLJump to med 1-10 mL, Intracatheter, PRN, Other, peripheral line flush, Starting on Sat06/06/22 at 0725, Until Sat06/08/22 at 225, Flush peripheral IV catheter with 1-10 mL of normal saline before and after medications and prn to clear blood from the line or to verify patency. Group 2: dextrose 10 % IV bolusJump to med 12.5 g, at 468.75 mL/hr, Intravenous, PRN, Other, Bedside Glucose less than 70 mg/dL -If NOT able to eat and/or NPO and with IV Access, Starting on Sat06/04/22 at 1315, Until Sat06/08/22 at 2259, If NOT able to eat and/or NPO and with IV Access: For Bedside Glucose 54-69 mg/dL give 12.5 g Dextrose IV STAT For Bedside Glucose LESS than 54 mg/dl verify with a second Bedside Glucose (from a different site) and give 25 g Dextrose IV STAT Re-check and Re-treat blood glucose EVERY , 10-25 minutes until blood glucose GREATER than or equal to 80 mg/dl. NOTIFY PROVIDER OF HYPOGLYCEMIC EVENT., Post-op Or dextrose 10 % IV bolusJump to med 25 g, at 937.5 mL/hr, Intravenous, PRN, Other, Bedside Glucose less than 70 mg/dL -If NOT able to eat and/or NPO and with IV Access, Starting on Sat06/04/22 at 1315, Until Sat06/08/22 at 2259, If NOT able to eat and/or NPO and with IV Access: For Bedside Glucose 54-69 mg/dL - give 12.5 g Dextrose IV STAT For Bedside Glucose LESS than 54 mg/dl - verify with a second Bedside Glucose (from a different site) and give 25 g Dextrose IV STAT Re-check and Re-treat blood glucose EVERY - 10-25 minutes until blood glucose GREATER than or equal to 80 mg/dl. - If repeat bedside glucose 54- 79 give 12.5 g Dextrose IV STAT NOTIFY PROVIDER OF HYPOGLYCEMIC EVENT., Post-op Group 3: oxyCODONE (immediate release) (Roxicodone) tablet 5 mgJump to med 5 mg, Oral, EVERY 4 HOURS PRN, Moderate Pain, Severe Pain, Starting on Sat06/05/22 at 1009, Until Sat06/08/22 at 2259, Patient preference for lesser PRN pain meds may be honored when the patient requests a less strong medication, a lower dose, or a less intrusive route of administration when the lesser drug, dose and route have been ordered for the patient. This patient request must be documented in the MAR., Post-op documented in this encounter Care Teams Mds Manager Relationship Specialty Start Date End Date Karrie Phillips MD [facility] [place] [address] PCP - General 03/13/22 documented as of this encounter
--- OUTSIDE RECORDS SUMMARY | 2024-04-11 03:31 | XMS_ITS | Encounter Summary ---
Author Organization [facility] dax [place] Address [address] [place] [address] Care Team Providers Care Operations Management Trainee Name Role Phone Karrie Phillips MD Primary Care Provider [phone] Reason for Visit * Reason Comments VOMITING BLOOD Pt arrived via [employer] vehicle. Pt states she was encouraged to come here from her clinic appointment today d/t dark red emesis. Pt states she is having increased dizziness with movement and nausea. Pt states she is chilling. * Auth/Cert (Routine) Specialty Diagnoses / Procedures Referred By Everardo fried Referred To Contact Referral ID Status Reason Start Date Expiration Date Visits Re quested Visits Authorized [id number] 1 1 Encounter Details Date Type Department Care Team (Late st Contact Info) Description 06/21/2022 4:40 PM CDT - 06/21/2022 5:28 PM CDT Surgery [facility] ENDOSCOPY [address] [place] [address] Carmen Morales MD [address] [place] [address] ESOPHAGOGASTRODUODENOSCOPY (EGD) DIAGNOSTIC Surgery Details Date/Time Status Location OR Service Patient Class Case Class Case Type Trauma Case? 06/21/2022 4:40 PM Posted [facility] Endoscopy ENDO 4 Gastroenterology Inpatient Urgent < 24 Hrs Panel 1 Procedure LRB Anes Op Region Wound Class Comments ESOPHAGOGASTRODUODENOSCOPY ( EGD) DIAGNOSTIC N/A MAC Esophagus Clean Contaminated A. small bowel biopsy r/o celiac small bowel capsule placed CAPSULE ENDOSCOPY (GASTROINTESTINAL IMAGING) N/A MAC NA small bowel capsule placed Surgeon Surgeon Role Service Panel Carmen Morales MD Primary Gastroenterology 1 Evan Borrego MD Gastroenterology 1 documented in this encounter Social History Tobacco [...] and heating? Not hard at all 06/04/2022 [facility] - Occupational Stress [...] place to sleep or slept in a chcf (including now)? No 06/04/2022 Sex and Gender Information Value Date Recorded Sex Assigned at Not on file Gender Identity Not on file Sexual Orientation Not on file documented as of this encounter Last Filed Vital Signs Vital Sign Reading Time Taken Comments Blood Pressure 161/63 06/21/2022 5:15 PM CDT Pulse 80 06/21/2022 5:19 PM CDT Temperature 36.5 ??C (97.7 ??F) 06/21/2022 5:05 PM CD T Respiratory Rate 11 06/21/2022 5:19 PM CDT Oxygen Saturation 100% 06/21/2022 5:19 PM CDT Inhaled Oxygen Concentration - - Weight 61.2 kg (135 lb) 06/20/2022 8:49 AM CDT Height 154.9 cm (5' 1 ) 06/20/2022 8:49 AM CDT Body Mass Index 25.51 06/20/2022 8:49 AM CDT documented in this encounter Functional Status [...] as of this encounter Discharge Summaries * Anabell Hernandez PA-C - 06/23/2022 4:53 PM CDT Hospital Discharge Summary Patient ID: Kandace Cole [id number] 72 year old 1950 Admit date: 06/20/2022 Discharge date: 06/23/22 Admitting Physician: Eduar Mathis MD Discharge Physician: Abeba Will DO Present on Admission: GERD Nausea and vomiting Coffee Ground Emesis Iron Deficiency Anemia Diarrhea Chronic hyponatremia Recent cervical spinal instrumentation Heredia esophagus HTN DM2 Discharge Diagnoses: GERD Nausea and vomiting Coffee Ground Emesis Iron Deficiency Anemia Diarrhea Chronic hyponatremia Recent cervical spinal instrumentation Heredia esophagus HTN DM2 Admission Condition: poor Discharged Condition: fair Indication for Admission: concern for GIB Hospital Course: Kandace Cole is a 72 year old female with past medical history of HTN, DM, GERD and Heredia Esophagus, chronic hyponatremia, MDD that presented to [facility] on 06/20 from her follow up appointment with her spine surgeon for staple removal with rapid onset of 1 day of 10-20 episodes of vomiting and noted some coffee ground emesis at home. No prior previous reported episodes. On arrival to [facility], she was slightly hypertensive, remaining VSS. Labs notable for hemoglobin of 9 (baseline) as well as hyponatremia NA 128 (baseline around 130-132, and Cr 1.3 (baseline (1.0-1.1). She was admitted to medicine with GI consulted. She underwent EGD which revealed mild duodenal bulb erythema which was biopsied, no changes to previously known Barretts. Capsule endoscopy obtained and results are pending. She was continued on supportive care with IVF and antiemetics, had 3-4 episodes of diarrhea during hospital stay without melena or hematochezia. Hemoglobin remained stable, vomiting resolved and she was able to tolerate small amounts of PO intake. She was discharged on 06/24 with plan to f/u with GI on capsule endoscopy and pathology from duodenal biopsy. She will follow up with PCP in 1 week for BMP (Na) and CBC check. I recommended starting an iron supplement when GI symptoms resolve and she will discuss this with her PCP. I also recommend decreasing home Lexapro dose to 10mg as this is max recommended dose for this patient. Consults: GI Pending Labs and Studies: capsule endoscopy results Discharge Communication: Patient's hospital course was conveyed to PCP. Significant Diagnostic Studies: CBC: Recent Labs Lab Units 06/23/22 0347 06/22/22 0234 06/21/22 0203 WBC 10??3/uL 7.7 9.1 8.0 RBC 10??6/uL 2.66* 2.70* 2.77* HGB g/dL 8.0* 8.0* 8.3* HCT % 24.2* 24.2* 25.9* BMP: Recent Labs Lab Units 06/23/22 0306 06/22/22 0234 06/21/22 0203 NA mmol/L 131* 132* 134* CL mmol/L 100 99 96* CO2 mmol/L 22 25 25 BUN mg/dL 10 13 14 CREATININE mg/dL 1.09* 1.07* 1.11* CALCIUM mg/dL 8.2* 8.5 9.5 Magnesium: No results for input(s): MG in the last 168 hours. Phosphorus: Recent Labs Lab Units 06/22/22 0234 PHOS mg/dL 2.8* Coagulation: Recent Labs Lab Units 06/20/22 1405 PT Seconds 13.4 INR 1.0 Endocrine: No results for input(s): TSH, A1C in the last 168 hours. LFTs: Recent Labs Lab Units 06/22/22 0234 06/21/22 0203 06/20/22 0949 AST U/L -- 15 16 ALT U/L -- 10 10 TBILI mg/dL -- 0.7 0.6 ALB g/dL 2.8* 3.3* 3.5 XR CERVICAL SPINE 2 OR 3VW Result Date: 06/20/2022 IMPRESSION: Unchanged appearance of posterior spinal fusion. Stable appearance of severe degenerative changes in the mid to lower cervical spine. Report dictated by Yasir Pierre MD (md do resident urgent care). Kamila Narvaez MD have personally reviewed and interpreted this examination/study. > Interpreting Provider: Kamila Barber MD on 06/20/2022 4:[address] ANGIO ABDOMEN PELVIS Result Date: 06/20/2022 Impression: 1.No arterial contrast extravasation within the gastrointestinal lumen to suggest active arterial gastrointestinal bleed. 2.Colonic diverticulosis without evidence of diverticulitis. 3.Small hiatal hernia. 4.Tree-in-bud opacities in the right greater than left dependent lung bases, concerning for infectious etiology. > Dictated by Sherlyn Hopkins DO (md do resident urgent care). Chaim Narvaez have personally reviewed and interpreted this examination/study. > Interpreting Provider: Chaim Martins on 06/20/2022 10:47 PM Discharge Exam: Blood pressure 164/53, pulse 77, temperature 97.5 ??F (36.4 ??C), temperature source Oral, resp. rate 18, height 1.549 m (5' 1 ), weight 61.2 kg (135 lb), SpO2 99 %, not currently . GEN: Well appearing female sitting up in bed in C collar in NAD CHEST: Clear to auscultation bilaterally HEART: Regular rate and rhythm, Nl S1 and S2 No gallops. GI: Abdomen soft and non tender, non-distended, +BS EXT: No edema. PSYCH: Alert and oriented to person place time and situation. Good mood, appropriate affect. Disposition: Home Patient Instructions: Medication List START taking these medications ondansetron (disintegrating) 4 MG tablet Commonly known as: Zofran ODT Take 1 (one) tablet by mouth every 6 hours as needed for Nausea/Vomiting Allow tablet to dissolve on the tongue CHANGE how you take these medications escitalopram 20 MG tablet Commonly known as: Lexapro What changed: how much to take CONTINUE taking these [...] 6.25 MG tablet Commonly known as: Coreg gabapentin 300 MG capsule Commonly known as: Neurontin Take 1 (one) capsule by mouth 3 times daily latanoprost 0.005 % ophthalmic solution Commonly known as: Xalatan lisinopril 20 MG tablet Commonly known as: Prinivil; Zestril meclizine 25 MG tablet Commonly known as: Antivert pantoprazole EC 40 MG tablet Commonly known as: Protonix Take 1 (one) tablet by mouth once daily pravastatin 40 MG tablet Commonly known as: Pravachol QUEtiapine 100 MG tablet Commonly known as: SEROquel Take 1 (one) tablet by mouth every evening saline nasal spray 0.65 % nasal spray Commonly known as: [place]; Baby [place] 1 (one) spray into each nostril as needed for Dry Nose vitamin D3 10 MCG (400 UNIT) tablet Commonly known as: Cholecalciferol Take 2 (two) tablets by mouth once daily Where to Get Your Medications These medications were sent to [id number] - [address] [facility] [id number] [phone] [facility] [id number] ?? ondansetron (disintegrating) 4 MG tablet Follow-up Information Karrie Phillips MD . Specialty: Family Medicine Contact information: [address] [facility] [facility] [place] [id number] Follow up with provider . Discharge Instructions Kandace Cole, HOSPITAL COURSE: You were admitted for nausea and vomiting and concern for blood in your vomit. You were seen by ourgastroenterologists and underwent an EGD and capsule endoscopy (scope of stomach and small intestines). The scope of your stomach did not show any source of bleeding, and the capsule endoscopy of your small intestine will be read by a GI doctor early next week, they will call you with results. Yourblood counts remained stable and it appears you were not losing blood. I recommend having your primary care doctor check your blood counts at your follow up appointment. You were found to have iron deficiency, and you should start an iron supplement once you are feeling better. For diarrhea, you can take up to 4 tablets of imodium daily, do not take if you have not had a bowel movement that day. You can take Zofran 4mg as needed for nausea. If you see any dark spots coffee grounds in your vomit, or any dark tarry stool or blood in stool, you should return to the hospital. During this hospitalization your sodium was low, I recommend having your primary care doctor recheck your sodium levels in one week to make sure it is staying stable. Prioritize drinking water with added sodium and electrolytes while you are ill (I.e. broths, sports drinks, pedialyte). It was also noticed that your home dose of Lexapro is too high at 20mg, it is recommended for someone your age to not take more than 10mg of LExapro daily. I recommend decreasing this (Cut in half) and discussing with your primary care provider. If you need to call [facility] for any reason, you may reach us at [phone] and dial [phone] for the concrete boom pump operator. If you have any questions about your medications, please be sure to ask the pharmacy when you cook pickled meat your prescription. You may also call your primary provider if you are uncertain if you should be taking your medication. INSTRUCTIONS: CONCERNING SYMPTOMS: When to call your healthcare provider: Call your healthcare provider immediately if you have any of the following: - Fever of 100.4??F (38??C) or higher - Shaking chills - Intractable nausea and vomiting - Severe headache - Confusion/altered mental status - Seizures (convulsions) - Weakness in arms/legs - Dizziness If you are unable to reach your primary provider, please go to the nearest emergency room or call EMS ([phone]). It is essential that you keep all of your follow-up appointments and go to your doctors appointments as scheduled. If a follow-up with your primary care provider has not been scheduled, you need to schedule an appointment tofollow-up on your hospitalization. If there is a conflict, please call the clinic ahead of time and reschedule the appointment. Thanks! Internal Medicine Department [facility] [address] [place] [address] Signed: Anabell Hernandez PA-C 06/23/2022 Time spent on discharge: 45 minutes. Time was spent on preparation of discharge records, prescriptions, counseling patient, working withsocial work and nursing team, discussion with consulting teams and arranging outpatient follow up. documented in this encounter Discharge Instructions * Discharge Instructions* Anabell Hernandez PA-C - 06/23/2022 1:40 PM CDT Kandace Cole, HOSPITAL COURSE: You were admitted for nausea and vomiting and concern for blood in your vomit. You were seen by ourgastroenterologists and underwent an EGD and capsule endoscopy (scope of stomach and small intestines). The scope of your stomach did not show any source of bleeding, and the capsule endoscopy of your small intestine will be read by a GI doctor early next week, they will call you with results. Yourblood counts remained stable and it appears you were not losing blood. I recommend having your primary care doctor check your blood counts at your follow up appointment. You were found to have iron deficiency, and you should start an iron supplement once you are feeling better. For diarrhea, you can take up to 4 tablets of imodium daily, do not take if you have not had a bowel movement that day. You can take Zofran 4mg as needed for nausea. If you see any dark spots coffee grounds in your vomit, or any dark tarry stool or blood in stool, you should return to the hospital. During this hospitalization your sodium was low, I recommend having your primary care doctor recheck your sodium levels in one week to make sure it is staying stable. Prioritize drinking water with added sodium and electrolytes while you are ill (I.e. broths, sports drinks, pedialyte). It was also noticed that your home dose of Lexapro is too high at 20mg, it is recommended for someone your age to not take more than 10mg of LExapro daily. I recommend decreasing this (Cut in half) and discussing with your primary care provider. If you need to call [facility] for any reason, you may reach us at [phone] and dial [phone] for the concrete boom pump operator. If you have any questions about your medications, please be sure to ask the pharmacy when you cook pickled meat your prescription. You may also call your primary provider if you are uncertain if you should be taking your medication. INSTRUCTIONS: CONCERNING SYMPTOMS: When to call your healthcare provider: Call your healthcare provider immediately if you have any of the following: - Fever of 100.4??F (38??C) or higher - Shaking chills - Intractable nausea and vomiting - Severe headache - Confusion/altered mental status - Seizures (convulsions) - Weakness in arms/legs - Dizziness If you are unable to reach your primary provider, please go to the nearest emergency room or call EMS ([phone]). It is essential that you keep all of your follow-up appointments and go to your doctors appointments as scheduled. If a follow-up with your primary care provider has not been scheduled, you need to schedule an appointment tofollow-up on your hospitalization. If there is a conflict, please call the clinic ahead of time and reschedule the appointment. Thanks! Internal Medicine Department [address] [address] documented in this encounter Medications at Time [...] mouth every evening 06/08/2022 saline nasal spray ([place]; Baby [place]) 0.65 % nasal spray [place] 1 (one) spray into each nostril as needed for Dry Nose 15 mL 02/19/2022 vitamin D3 (Cholecalciferol) 10 MCG (400 UNIT) tablet Take 2 (two) tablets by mouth once daily 06/09/2022 documented as of this encounter Progress Notes * Damian Arevalo RN - 06/23/2022 1:50 AM CDT Problem: Pain/Discomfort Goal: Patient exhibits reduced pain/discomfort [...] in the flowsheet documentation) Outcome: Progressing Problem: Skin Integrity Goal: Skin integrity is maintained or improved Outcome: Progressing Problem: Fall Risk Goal: Patient will remain free of falls Outcome: Progressing Problem: Fluid and Electrolyte Imbalance Goal: Fluid and electrolyte balance are achieved/maintained Outcome: Progressing Problem: Nausea/Vomiting Goal: Patients functional goal is met Outcome: Progressing Problem: Elimination Goal: Elimination patterns are normal or improving Outcome: Progressing Problem: Nutrition Goal: Nutritional status is improving Outcome: Progressing Problem: Ineffective breathing pattern related to obstructive sleep apnea Goal: Maintains optimal sleep pattern, as evidenced by relaxed breathing at normal rate and depth. Outcome: Progressing Goal: Adheres to CPAP (Continuous Positive Airway Pressure) device regimen as prescribed. Outcome: Progressing Problem: Sleep deprivation related to sleep apnea. Goal: Achieves restful, refreshing sleep pattern. Outcome: Progressing Goal: Patient will have adequate PO intake without complaints of nausea and vomiting. Summary: Patient was able to tolerate dinner without complaints of nausea and any episodes of vomiting. Will continue to monitor patient and administer antiemetics if needed. * Mark Anthony Magana RN - 06/22/2022 3:43 PM CDT Problem: Pain/Discomfort Goal: Patient exhibits reduced pain/discomfort [...] in the flowsheet documentation) Outcome: Progressing Problem: Skin Integrity Goal: Skin integrity is maintained or improved Outcome: Progressing Problem: Fall Risk Goal: Patient will remain free of falls Outcome: Progressing Problem: Fluid and Electrolyte Imbalance Goal: Fluid and electrolyte balance are achieved/maintained Outcome: Progressing Problem: Nausea/Vomiting Goal: Patients functional goal is met Outcome: Progressing Problem: Elimination Goal: Elimination patterns are normal or improving Outcome: Progressing Problem: Nutrition Goal: Nutritional status is improving Outcome: Progressing Problem: Ineffective breathing pattern related to obstructive sleep apnea Goal: Maintains optimal sleep pattern, as evidenced by relaxed breathing at normal rate and depth. Outcome: Progressing Goal: Adheres to CPAP (Continuous Positive Airway Pressure) device regimen as prescribed. Outcome: Progressing Problem: Sleep deprivation related to sleep apnea. Goal: Achieves restful, refreshing sleep pattern. Outcome: Progressing * Katelyn Arciniega, OT - 06/22/2022 3:35 PM CDT [facility] Department of Physical Medicine & Rehabilitation Progress Note Patient: Kandace Cole [facility] Record Number: [id number] Date of : 1950 Age: [age] year old Per PT, the patient is independent with ADLs and functional mobility, no skilled OT indicated. D/C OT. * Ange Whitman, PT - 06/22/2022 2:55 PM CDT [facility] Physical Medicine and Rehabilitation Physical Therapy Initial Evaluation Note Patient: Kandace Cole [facility] Record Number: [id number] Date of : 1950 Age: [age] year old PPE worn by patient: socks - clean Recommendations: Discharge PT Discharge Recommendations: Patient may return home without the need for ongoing skilled therapy services post-hospitalization Recommended Transportation Method: Private Car In addition to the 1:1 evaluation of [...] Evaluation and Treat PRECAUTIONS: Weight Bearing Status: (WBAT x4 in aspen collar) Activity Level: Activity as Tolerated Spine Precautions: Yes Spine Precautions: [place] DIAGNOSIS: Patient Active Problem List: Degeneration of cervical intervertebral disc Syncope and collapse Trauma Injury of head, initial encounter Fall, initial encounter Multiple closed fractures of facial bone, initial encounter (CMS/HCC) Abdominal pain Abnormal serum creatinine level Anemia Heredia's esophagus Cardiomegaly Chronic kidney disease Chronic obstructive pulmonary disease (CMS/HCC) Chronic depression Dyspnea on exertion Benign essential hypertension Glaucoma Hyperkalemia Hyposmolality Hyperthyroidism Hypothyroidism Intractable chronic migraine without aura Iron deficiency anemia Leukocytosis Macular degeneration Migraine Ulnar neuropathy Type 2 diabetes mellitus (CMS/HCC) Type 2 diabetes mellitus with stage 3 chronic kidney disease, without long-term current use of insulin ([facility]/HCC) Temporomandibular joint disorder Systemic sclerosis (CMS/HCC) Sprain of ankle Sciatica Recurrent major depression in remission (CMS/HCC) Raynaud's disease Primary fibromyalgia syndrome Polyp of colon Perineal pain Paronychia of toe of right foot Onychomycosis of toenail Nonexudative 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 Nausea Multiple bruises Mixed hyperlipidemia Mixed collagen vascular disease (CMS/HCC) Shortness of breath Abdominal pain, left upper quadrant Dizziness Hematemesis with nausea Past Medical History: Diagnosis Date ??? Anemia ??? Heredia's esophagus ??? CKD (chronic kidney disease), stage III (CMS/HCC) ??? Diabetes ??? Disease of esophagus ??? Fibromyalgia ??? Glaucoma ??? HTN (hypertension) ??? Macular degeneration ??? Osteoarthritis ??? Raynaud disease ??? Sleep apnea ??? Ulnar neuropathy SUBJECTIVE: Subjective: I went to rehab for 8 days after suurgery. then I went home. (home therapy had not starated yet.) PATIENT GOALS: Patient's Primary Concern: go home and hold food down. Home Situation: Type of Residence: Private Residence (2 story) Lives with:: Other (Comment) (Grandson) Steps to Enter: 1 Handrails: Outdoor Home Structure: Two story, live on 1st floor Primary Bedroom: First Floor Primary Bathroom: First Floor Equipment at Home: Walker-2 Wheeled;Walker-4 Wheeled with Seat;Wheelchair- Standard;Grab Bars;Hand Held Shower;Chair-Shower;Commode-Raised Seat (family wanted pt to have w/c after neck surgery. riaz.) Production Team Member issued to pt. Pt has bed rails. Additional Information (PT): no hospital bed, but ordered wedge for bed to elevate head. Prior Level of Functioning: Prior Level of Function Mobility: With Assistive Device;Ambulate-In Home ;Independent (pt was not using w/w before surgery.) Have Help at Home?: Yes, there is help at home now (grandson,does not work outside the home.) Who assists you at home?: Friends/Family How often is assistance provided?: daily, grandpark does shopping and laundry in basement Activity at Home: Sedentary (recent neck surgery.) Pain Assessment: Pain Location #1 Pain Scale/Observation: Numeric (0-10) Pain Rating Score #1: 2 Pain Location : Neck;Back (upper back.) Relieved By: Rest OBJECTIVE: At start of therapy session, patient found in patient bedside chair and with no alarm. General Appearance: Pt in aspen collar in NAD, awake in chair. LDAs: IV's: Peripheral line Edema: no edema noted in bilateral lower extremities Mental Status/Cognition: Level of Consciousness-Adult: Alert;Eyes Open Spontaneously Orientation Level: Oriented X4 Cognition: Follows Commands-Consistent Attention Span: Appears intact Following Commands: Follows all commands and directions without difficulty ROM: RUE: Deficits noted shoulder due to RC surgery. LUE: Deficits noted shoulder due to RC surgery. RLE: AROM WFL LLE: AROM WFL Strength: RUE: WNL LUE: WNL RLE:WNL LLE: WNL bilat UE within neck precautions. Tone: RLE: no abnormal tone noted LLE: no abnormal tone noted Coordination: RLE: WNL LLE: WNL Sensation: RUE: intact LUE: intact RLE: intact LLE: intact Mobility: A gait belt and non-slip socks were used for all out of bed activity this date. Bed Mobility: Rolling: Modified [place] Supine to Sit: Modified [place] with HOB in semi-fowlers position Sit to Supine: Modified [place] Pt has bed wedge at home to elevate head. Transfers: Sit to Stand: Complete [place] Stand to Sit: Complete [place] Bed to Chair: Complete [place] Type of Transfer: Stand Pivot Transfer Transfer Device: Gait belt;Walker-2 Wheeled Gait: Weight Bearing Status: (WBAT x4 in aspen collar) Distance Ambulated: 125 FEET Ambulation: Assistive Device: Gait Belt;Walker-2 Wheeled Ambulation: Level of Assistance: Modified [place] Ambulation: Gait Deviations: (normal) Balance: Balance Scales/Tests Used: Sitting: Static/Dynamic;Standing: Static/Dynamic Sitting - Static: Good Sitting - Dynamic: Good Standing - Static: Good Standing - Dynamic: Good ACTIVITY TOLERANCE: Patient's activity tolerance: good TREATMENT/INTERVENTIONS: evaluation, bed mobility training, transfer training and gait training EDUCATION: While performing PT, Patient was instructed in:functional mobility training, safety awareness/fall precautions , spine precautions , use of adaptive equipment, discharge planning Presented to patient who demonstrates Good understanding of instructions given. INFORMED CONSENT TO TREATMENT: Plan of care including recommended therapy, goals and frequency, discussed with patient who understands and agrees to proceed. ASSESSMENT: Patient demonstrates independence with mobility/exercise. No continued Physical Therapy indicated at this time. Pt has all necessary equipment and support at home s/p neck surgery. Equipment Issued: gait belt and field broomer Plan: Plan: Discontinue IP PT If patient is discharged from the facility, this note serves as a discharge summary if further physical therapy visits did not occur. Refer to filed flowsheet for further details. Following therapy session, patient left in patient bedside chair, with call light within reach, with RNMark Anthony aware, with therapy cues visible on white board. * Naif Tenorio MD - 06/22/2022 8:17 AM CDT GI Consult Progress Note Subjective: Interval History: When seen this AM states last night after attempting to eat her first meal she had an episode of emesis that was purely food contents. Denies any recurrent coffee ground emesis. States she will try liquid diet today and advance as tolerated. Denies abdominal pain, hematemesis, coffee ground emesis, melena, hematochezia, fevers, chills, heartburn, dysphagia, or odynophagia. Objective: Physical Exam: BP 142/48 Pulse 84 Temp 97.8 ??F (36.6 ??C) Resp 16 Ht 1.549 m (5' 1 ) Wt 61.2 kg (135 lb) SpO2 99% Wt Readings from Last 3 Encounters: 06/20/22 61.2 kg (135 lb) 06/04/22 60.5 kg (133 lb 6.4 oz) 05/15/22 61.6 kg (135 lb 12.8 oz) General: Pleasant, in no distress. HEENT: Conjunctivae/corneas clear. C collar in place. Lungs: Normal work of breathing. Heart: Normal rate and regular rhythm. Abdomen: Soft, non-tender, non-distended. Extremities: No edema, warm to touch. Dermatologic: No observed rashes on exposed skin. Neuro: Alert, cooperative, no gross focal signs. Psych: Goal-directed thought process. Labs: Recent Labs Component Name 06/22/22 0234 06/21/22 0203 06/20/22 2218 06/20/22 1405 06/20/22 0949 06/08/22 0213 WBC 9.1 8.0 - 9.5 11.8* 9.2 HGB 8.0* 8.3* 8.5* 9.3* 9.0* 7.9* MCV 89.6 93.5 - 89.9 91.7 90.5 INR - - - 1.0 - - Recent Labs Component Name 06/22/22 0234 06/21/22 0203 06/20/22 0949 NA 132* 134* 128* CL 99 96* 93* CO2 25 25 26 BUN 13 14 14 CREATININE 1.07* 1.11* 1.02* Recent Labs Component Name 06/22/22 0234 06/21/22 0203 06/20/22 0949 02/16/22 0757 02/14/22 2355 AST - 15 16 - 16 ALT - 10 10 - 13 ALKPHOS - 62 66 - 58 TBILI - 0.7 0.6 - 0.5 ALB 2.8* 3.3* 3.5 - 3.4 - = values in this interval not displayed. Imaging: XR CERVICAL SPINE 2 OR 3VW Result Date: 06/20/2022 IMPRESSION: Unchanged appearance of posterior spinal fusion. Stable appearance of severe degenerative changes in the mid to lower cervical spine. Report dictated by Yasir Pierre MD (md do resident urgent care). Kamila Narvaez MD have personally reviewed and interpreted this examination/study. > Interpreting Provider: Kamila Barber MD on 06/20/2022 4:[address] ANGIO ABDOMEN PELVIS Result Date: 06/20/2022 Impression: 1.No arterial contrast extravasation within the gastrointestinal lumen to suggest active arterial gastrointestinal bleed. 2.Colonic diverticulosis without evidence of diverticulitis. 3.Small hiatal hernia. 4.Tree-in-bud opacities in the right greater than left dependent lung bases, concerning for infectious etiology. > Dictated by Sherlyn Hopkins DO (md do resident urgent care). Chaim Narvaezs have personally reviewed and interpreted this examination/study. > Interpreting Provider: Chaim Martins on 06/20/2022 10:47 PM Procedures: EGD 06/21/2022 - esophagogastric landmarks identified - esophageal mucosal changes 2/2 established long segment Heredia's disease - normal stomach - duodenal bulb erythema, biopsied - successful completion of VCE placement - no explanation for coffee ground emesis Assessment: Kandace Cole is a 72 year old female with a history of Heredia's esophagus, iron deficiency anemia, HTN, T2DM, CKD, RLS, and recent C5-C6 laminectomy w/ C4- T2 PISF 06/04/2022 who presents for coffee ground emesis for which we were consulted. Kandace Cole is a 72 year old female with a history of Heredia's esophagus, iron deficiency anemia, HTN, T2DM, CKD, RLS, and recent C5-C6 laminectomy w/ C4- T2 PISF 06/04/2022 who presents for coffee ground emesis for which we were consulted. ?? #Coffee ground emesis - Bleeding is most likely upper GI in origin and differential includes sandro garner tear, gastric ulcer / gastritis, duodenal ulcer, esophagitis, AVMs and malignancy. ? EGD w/ duodenal bulb erythema, otherwise unremarkable for obvious cause of coffee ground emesis. VCE currently in process. Hgb remains stable, HDS stable. ?? #Heredia's esophagus ? Previously taking pantoprazole 40 mg daily as an outpatient. Redemonstrated on EGD 06/21/2022. ?? #Iron deficiency anemia - occult GI loss vs nutritional vs medication vs autoimmune ? Previous anemia studies 06/06/2022 w/ iron 20, transferrin 162, trans % sat 10, TIBC 203, ferritin 94, folate 9.4, B12 382. No s/s of bleeding at this time. Hgb remains around baseline. Remote hx of iron transfusions. Long history of PPI, less likely this is the culprit. EGD unremarkable for occultGI bleed. Bx pending. VCE in process. ?? #Syncope/pre-syncope - arrhythmia vs valvular disease vs anemia vs adrenal insufficiency vs hypothyroidism ? Sodium currently around baseline, 134 today, but continues to be symptomatic prior to presentation. Hgb appears to be around baseline, recent endoscopic evaluation and will repeat EGD today w/ VCE to follow. TSH from 02/16/2022 wnl. Echo 02/15/2022 w/ mild MS, EF 72%. Per history has worn holter in the past that was unremarkable. AM cortisol 14.3 (06/22/2022). ? Other co-morbidities: HTN, T2DM, CKD, RLS. Recommendations: ?? Await VCE results ?? Follow up pathology results ?? Continue home PPI 30 minutes prior to first meal of day ?? Advance diet as tolerated ?? N/V medication PRN per primary team ?? Ok to follow up with local GI as needed Patient and above recommendations discussed with GI attending, Dr. Mcpherson, as well as the primaryteam. GI to sign off today. Please feel free to contact us with further questions/concerns. Naif Tenorio MD Internal Medicine, PGY-1 [facility] Associated attestation - Ike Mcpherson MD - 06/22/2022 10:15 AM CDT I have personally seen and examined this patient. I agree with the ice house supervisor's findings, assessment and plan as outlined. In addition: Doing OK Vomited yesterday, so asked to be on clear liquids Abdomen soft non-tender EGD negative, capsule pending No plans for further GI w/up or intervention Symptomatic control of N/V PPI bid po 15-30 minutes AC Upright when eating F/up with her usual GI provider(s) * Anabell Hernandez PA-C - 06/22/2022 8:10 AM CDT Hospitalist Daily Progress Note Name: Kandace Cole Age: [age] year old Room: 518/01 Date Admitted: 06/20/2022 Hospital Course: Kandace Cole is a 72 year old female with past medical history of heredia esophagus, HTN, CKD, DM2, anemia, recent c spine laminectomy C4-T2 PSIF that presented with numerous episodes of vomiting with coffee-ground emesis that started 06/19/22 associated nausea, abdominal pain, poor oral intake, greenish stool. No melena, hematochezia. Hemoglobin at baseline, Na 128 with mild JAE. Underwent EGD and capsule endoscopy 06/21/22 with GI. EGD without acute findings, duodenal bulb biopsied, VCE pending. Subjective: Did have nausea and vomiting last night after dinner, no current nausea. Did have 2 episodes waterydiarrhea this morning, no abdominal pain. She denies lightheadedness/dizziness, and says her prior fall episodes are more unsteadiness on her feet. No presyncopal episodes that she can remember. Current Facility-Administered Medications Medication Dose Route Frequency Provider Last Rate Last Admin ??? dextrose 10 % IV bolus 12.5 g Intravenous PRN Ori Iyer PA-C Or ??? dextrose 10 % IV bolus 25 g Intravenous PRN Ori Iyer PA-C Stopped at 06/21/22 1421 ??? glucagon (Glucagen) injection 1 mg 1 mg Subcutaneous PRN Ori Iyer PA-C ??? glucose (Diabetic Use) (Dex4 Glucose) oral liquid Oral PRN Ori Iyer PA-C ??? glucose (Diabetic Use) oral gel Oral PRN Ori Iyer PA-C ??? glucose chew tablet 4 tablet 16 g Oral PRN Ori Iyer PA-C ??? iopamidol (Isovue 370) 76 % contrast Intravenous Contrast - Once Adolph Mckinney MD 100 mLat 06/20/22 1646 ??? pantoprazole (Protonix) injection 40 mg 40 mg Intravenous BID Jinny Metcalf MD 40 mg at 06/21/222047 ??? scopolamine (Transderm-Scop) 1 patch 1 patch Transdermal q72h Price Michel, DO 1 patch at 06/21/22 1200 And ??? scopolamine patch placement confirmation Transdermal BID Price Michel, DO Wt Readings from Last 3 Encounters: 06/20/22 61.2 kg (135 lb) 06/04/22 60.5 kg (133 lb 6.4 oz) 05/15/22 61.6 kg (135 lb 12.8 oz) Vitals: Vital signs reviewed. BP 142/48 Pulse 84 Temp 97.8 ??F (36.6 ??C) Resp 16 Ht 1.549 m (5' 1 ) Wt 61.2 kg (135 lb) SpO2 99% PE: Physical Exam Vitals reviewed. Constitutional: Comments: Sitting up in bed in c collar. She appears comfortable, is alert and oriented x3 and pleasant in conversation HENT: Head: Normocephalic and atraumatic. Nose: Nose normal. No congestion. Mouth/Throat: Mouth: Mucous membranes are dry. Eyes: General: No scleral icterus. Extraocular Movements: Extraocular movements intact. Conjunctiva/sclera: Conjunctivae normal. Pupils: Pupils are equal, round, and reactive to light. Cardiovascular: Rate and Rhythm: Normal rate and regular rhythm. Heart sounds: No murmur heard. Pulmonary: Effort: Pulmonary effort is normal. Breath sounds: Normal breath sounds. No wheezing, rhonchi or rales. Abdominal: General: Abdomen is flat. Palpations: Abdomen is soft. Tenderness: There is no abdominal tenderness. Comments: hyperactive bowel sounds Musculoskeletal: General: No tenderness or deformity. Right lower leg: No edema. Left lower leg: No edema. Skin: General: Skin is warm and dry. Findings: No lesion or rash. Neurological: General: No focal deficit present. Mental Status: She is oriented to person, place, and time. Motor: No weakness (symmetric strength BUE and BLE). Coordination: Coordination normal. Labs: CBC: Recent Labs Lab Units 06/22/22 0234 06/21/22 0203 06/20/22 2218 06/20/22 1405 WBC 10??3/uL 9.1 8.0 -- 9.5 RBC 10??6/uL 2.70* 2.77* -- 3.07* HGB g/dL 8.0* 8.3* 8.5* 9.3* HCT % 24.2* 25.9* -- 27.6* BMP: Recent Labs Lab Units 06/22/22 0234 06/21/22 0203 06/20/22 0949 NA mmol/L 132* 134* 128* CL mmol/L 99 96* 93* CO2 mmol/L 25 25 26 BUN mg/dL 13 14 14 CREATININE mg/dL 1.07* 1.11* 1.02* CALCIUM mg/dL 8.5 9.5 9.8 Magnesium: No results for input(s): MG in the last 168 hours. Phosphorus: Recent Labs Lab Units 06/22/22 0234 PHOS mg/dL 2.8* Coagulation: Recent Labs Lab Units 06/20/22 1405 PT Seconds 13.4 INR 1.0 Endocrine: No results for input(s): TSH, A1C in the last 168 hours. LFTs: Recent Labs Lab Units 06/22/22 0234 06/21/22 0203 06/20/22 0949 AST U/L -- 15 16 ALT U/L -- 10 10 TBILI mg/dL -- 0.7 0.6 ALB g/dL 2.8* 3.3* 3.5 Micro: Microbiology Results (Displays last 21 days for this encounter ONLY) No results found for the last 504 hours. Imaging: XR CERVICAL SPINE 2 OR 3VW Result Date: 06/20/2022 IMPRESSION: Unchanged appearance of posterior spinal fusion. Stable appearance of severe degenerative changes in the mid to lower cervical spine. Report dictated by Yasir Pierre MD (md do resident urgent care). Kamila Narvaez MD have personally reviewed and interpreted this examination/study. > Interpreting Provider: Kamila Barber MD on 06/20/2022 4:[address] ANGIO ABDOMEN PELVIS Result Date: 06/20/2022 Impression: 1.No arterial contrast extravasation within the gastrointestinal lumen to suggest active arterial gastrointestinal bleed. 2.Colonic diverticulosis without evidence of diverticulitis. 3.Small hiatal hernia. 4.Tree-in-bud opacities in the right greater than left dependent lung bases, concerning for infectious etiology. > Dictated by Sherlyn Hopkins DO (md do resident urgent care). Chaim Narvaez have personally reviewed and interpreted this examination/study. > Interpreting Provider: Chaim Martins on 06/20/2022 10:47 PM Problem List: Shortness of breath POA: Yes Abdominal pain, left upper quadrant POA: Yes Dizziness POA: Yes Hematemesis with nausea POA: Yes Assessment and Plan: Abdominal Pain, Nausea, Vomiting, improving Concern for Coffee-Ground Emesis Hx Heredia Esophagus Dizziness, lightheadedness, reported syncope - abd/pelvis angiogram revealed no active arterial GI bleed, no diverticulitis (but diverticulosis present), tree-in-bud opacities in R>L dependent lung bases - negative EGD, colonoscopy at OSH - Hgb 9 -> 8.3 >8.0; baseline Hgb 9.9 on 02/14/22 - GI consulted, appreciate recs - EGD with esophageal mucosal changes 2/2 to established long-segment Heredia's disease; no explanation for hematemesis found; duodenal bulb erythema biopsied, awaiting capsule endoscopy results - transition to bland diet today, fluids as needed - PIV x2 and transfuse for hgb >7, monitor for bloody output ?? Iron deficiency anemia - previous anemia studies 06/06/22 w/ iron 20, transferrin 162, TSAT 10%, TIBC 203, ferritin 94, folate 9.4, b12 382 - per GI, no s/s bleeding at this time - can start oral iron when GI symptoms improving Frequent Falls - appears symptoms more related to imbalance, less related to syncope/presyncope, possibly related to cervical myelopathy - obtain orthostatics - PT/OT ?? Acute on chronic hyponatremia, improving Hypoglycemia, improving - encourage oral intake ?? HTN CKD3 - restart home Coreg - holding home lisinopril, will restart as indicated ?? Hx T2DM - a1c 5.3 ?? Cervical myelopathy s/p C5-C6 laminectomies, C4-T2 Posterior spinal instrumentation and fusion by Dr. Taylor on - ortho c/s, appreciate recs - luba removed at bedside - PT/OT prior to DC, was DCed from rehab 1 week ago Inpatient Checklist -LDA: PIV -Antibiotic end date: n/a -Consults: GI -DVT: holding -Diet: regular -Code: full -Dispo: inpatient Anabell Hernandez PA-C [facility] # [id number] Non-urgent messages may be sent through [employer] Date of service: 06/22/2022 Attending Physician: Abeba Will DO * Yeni Burnett RN - 06/22/2022 6:58 AM CDT Small bowel video capsule recording equipment obtained from bedside. Image uploading in progress. * Leobardo Chisholm RN - 06/21/2022 7:35 PM CDT Problem: Pain/Discomfort Goal: Patient exhibits reduced pain/discomfort as evidenced by pain scores 06/21/20222256 by Leobardo Chisholm RN Outcome: Progressing 06/21/20222256 by Leobardo Chisholm RN Outcome: Progressing Goal: Patient uses pharmacological and non-pharmacological pain management strategies. 06/21/20222256 by Leobardo Chisholm RN Outcome: Progressing 06/21/20222256 by Leobardo Chisholm RN Outcome: Progressing Goal: Patient verbalizes acceptable level of pain relief and ability to engage in desired activity. 06/21/20222256 by Leobardo Chisholm RN Outcome: Progressing 06/21/20222256 by Leobardo Chisholm RN Outcome: Progressing Problem: Fall Risk Goal: Fall risk and fall related injury risk are minimized (interventions related to the fall risk can be found in the flowsheet documentation) 06/21/20222256 by Leobardo Chisholm RN Outcome: Progressing 06/21/20222256 by Leobardo Chisholm RN Outcome: Progressing Problem: Skin Integrity Goal: Skin integrity is maintained or improved 06/21/20222256 by Leobardo Chisholm RN Outcome: Progressing 06/21/20222256 by Leobardo Chisholm RN Outcome: Progressing Problem: Fall Risk Goal: Patient will remain free of falls 06/21/20222256 by Leobardo Chisholm RN Outcome: Progressing 06/21/20222256 by Leobardo Chisholm RN Outcome: Progressing Problem: Fluid and Electrolyte Imbalance Goal: Fluid and electrolyte balance are achieved/maintained 06/21/20222256 by Leobardo Chisholm RN Outcome: Progressing 06/21/20222256 by Leobardo Chisholm RN Outcome: Progressing Problem: Nausea/Vomiting Goal: Patients functional goal is met 06/21/20222256 by Leobardo Chisholm RN Outcome: Progressing 06/21/20222256 by Leobardo Chisholm RN Outcome: Progressing Problem: Elimination Goal: Elimination patterns are normal or improving 06/21/20222256 by Leobardo Chisholm RN Outcome: Progressing 06/21/20222256 by Leobardo Chisholm RN Outcome: Progressing Problem: Nutrition Goal: Nutritional status is improving 06/21/20222256 by Leobardo Chisholm RN Outcome: Progressing 06/21/20222256 by Leobardo Chisholm RN Outcome: Progressing Problem: Ineffective breathing pattern related to obstructive sleep apnea Goal: Maintains optimal sleep pattern, as evidenced by relaxed breathing at normal rate and depth. 06/21/20222256 by Leobardo Chisholm RN Outcome: Progressing 06/21/20222256 by Leobardo Chisholm RN Outcome: Progressing Goal: Adheres to CPAP (Continuous Positive Airway Pressure) device regimen as prescribed. 06/21/20222256 by Leobardo Chisholm RN Outcome: Progressing 06/21/20222256 by Leobardo Chisholm RN Outcome: Progressing Problem: Sleep deprivation related to sleep apnea. Goal: Achieves restful, refreshing sleep pattern. 06/21/20222256 by Leobardo Chisholm RN Outcome: Progressing 06/21/20222256 by Leobardo Chisholm RN Outcome: Progressing * Mark Anthony Magana RN - 06/21/2022 4:54 PM CDT Problem: Pain/Discomfort Goal: Patient exhibits reduced pain/discomfort [...] in the flowsheet documentation) Outcome: Progressing Problem: Skin Integrity Goal: Skin integrity is maintained or improved Outcome: Progressing Problem: Fall Risk Goal: Patient will remain free of falls Outcome: Progressing Problem: Fluid and Electrolyte Imbalance Goal: Fluid and electrolyte balance are achieved/maintained Outcome: Progressing Problem: Nausea/Vomiting Goal: Patients functional goal is met Outcome: Progressing Problem: Elimination Goal: Elimination patterns are normal or improving Outcome: Progressing Problem: Nutrition Goal: Nutritional status is improving Outcome: Progressing Problem: Ineffective breathing pattern related to obstructive sleep apnea Goal: Maintains optimal sleep pattern, as evidenced by relaxed breathing at normal rate and depth. Outcome: Progressing Goal: Adheres to CPAP (Continuous Positive Airway Pressure) device regimen as prescribed. Outcome: Progressing Problem: Sleep deprivation related to sleep apnea. Goal: Achieves restful, refreshing sleep pattern. Outcome: Progressing * Krystle Guerrero RN - 06/21/2022 4:41 PM CDT Case Management Initial Assessment Anticipated Discharge Date: 06/23/22 Transportation at Discharge: Family Anticipated level of care at discharge: Home Anticipated level of care provider: None Prior to admission level of care: Home Prior to admit provider: None Discharge Goals and Plans: Patient Goals: Patient will return home when medically clear. Plans: Discharge needs identified. See progress notes for details. Case Management to follow for discharge planning. Comments: Coffee ground emesis at ortho clinic. Recent admission for laminectomy. GI cx. Plan for EGD with capsule. Trend labs. 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 Home when medically clear. Lives with: Other (Comment) (Grandson) Physical Limitations: None Requires Assistance With: None Preferred Pharmacy: [facility] - [address] [id number] [address] [facility] [facility] [id number] READMISSION RISK SCORE is 20* at 4:42 PM 06/21/2022. Pt LYNNETTE in procedure, chart reviewed. Family Support (name and phone): Extended Emergency Contact Information Primary Emergency Contact: BARBARA CISNEROS Mobile Relation: Brother Secondary Emergency Contact: Barbara Cisneros Address: [place], [place] Relation: Other Patient or quality control representative requests care coordination reach out to family or caregiver listed above regarding discharge planning and at time of discharge? No Equipment at Home: Chair-Shower;Grab Bars;Cane-Small Base Quad;Walker-2 Wheeled;Walker-4 Wheeled with Seat Hearing Aid Fitter Referral: No Will continue to follow. For any questions or needs please contact: Powdered Sugar Supervisor Name/Phone number: Krystle Guerrero RN [phone] * Ori Iyer PA-C - 06/21/2022 10:19 AM CDT It is fine to remove C collar for patient's EGD. This was approved by Orthopedics (per GI). Oir Iyer PA-C * Ori Iyer PA-C - 06/21/2022 8:53 AM CDT Hospitalist Daily Progress Note Name: Kandace Cole Age: [age] year old Room: 518/01 Date Admitted: 06/20/2022 Total duration of encounter: 1 day Hospital Course: Kandace Cole is a 72 year old female with past medical history of significant for Heredia esophagus, hypertension, CKD, anemia DM2, OA, restless leg syndrome, recentcervical spine laminectomies, C4-T2 PISF, who presented with coffee- ground emesis that started 06/19/22. Patient had vomited 10 times on 06/20 and more than 20 times on 06/19, according to her couple of them were coffee- ground. She also reported nausea, dehydration, and poor oral intake, greenish stool, no melena or hematochezia, no hematemesis. She reported abdominal pain. She denied fever, night sweats or chills. She denied, chest pain, palpations, or SOB. Patient has chronic anemia and GI workup done on February 20. She denied being on blood thinners or taking NSAIDs. She was at clinic on 06/20 for luba removal, and she was told to go to ER for further vomiting. Upon arrival to ER, Pt was hemodynamically stable, blood pressure on higher side, initial labs unremarkable except Hgb 9, which is at baseline. Also noted hyponatremia , with sodium 128 and mild Cr elevation around baseline. 24H/S: I was unable to interview the patient today, as she was in OR. Current Facility-Administered Medications Medication Dose Route Frequency Provider Last Rate Last Admin ??? iopamidol (Isovue 370) 76 % contrast Intravenous Contrast - Once Adolph Mckinney MD 100 mL at 06/20/22 1646 ??? lactated ringers infusion Intravenous Continuous Deepa Georges MD 100 mL/hr at 06/21/22 0630 Rate Verify at 06/21/22 0630 ??? pantoprazole (Protonix) injection 40 mg 40 mg Intravenous BID Jinny Metcalf MD 40 mg at 06/21/22 0836 Vitals: Vital signs reviewed. BP 148/70 Pulse 89 Temp 98 ??F (36.7 ??C) (Oral) Resp 16 Ht 1.549 m (5' 1 ) Wt 61.2 kg (135 lb) SpO2 98% PE: I was unable to perform a physical exam, as patient was in OR. Labs: CBC: Recent Labs Lab Units 06/21/22 0203 06/20/22 2218 06/20/22 1405 06/20/22 0949 WBC 10??3/uL 8.0 -- 9.5 11.8* RBC 10??6/uL 2.77* -- 3.07* 3.02* HGB g/dL 8.3* 8.5* 9.3* 9.0* HCT % 25.9* -- 27.6* 27.7* BMP: Recent Labs Lab Units 06/21/22 0203 06/20/22 0949 NA mmol/L 134* 128* CL mmol/L 96* 93* CO2 mmol/L 25 26 BUN mg/dL 14 14 CREATININE mg/dL 1.11* 1.02* CALCIUM mg/dL 9.5 9.8 Coagulation: Recent Labs Lab Units 06/20/22 1405 PT Seconds 13.4 INR 1.0 LFTs: Recent Labs Lab Units 06/21/22 0203 06/20/22 0949 AST U/L 15 16 ALT U/L 10 10 TBILI mg/dL 0.7 0.6 ALB g/dL 3.3* 3.5 Imaging: XR CERVICAL SPINE 2 OR 3VW Result Date: 06/20/2022 IMPRESSION: Unchanged appearance of posterior spinal fusion. Stable appearance of severe degenerative changes in the mid to lower cervical spine. Report dictated by Yasir Pierre MD (md do resident urgent care). Kamila Narvaez MD have personally reviewed and interpreted this examination/study. > Interpreting Provider: Kamila Barber MD on 06/20/2022 4:[address] ANGIO ABDOMEN PELVIS Result Date: 06/20/2022 Impression: 1.No arterial contrast extravasation within the gastrointestinal lumen to suggest active arterial gastrointestinal bleed. 2.Colonic diverticulosis without evidence of diverticulitis. 3.Small hiatal hernia. 4.Tree-in-bud opacities in the right greater than left dependent lung bases, concerning for infectious etiology. > Dictated by Sherlyn Hopkins DO (md do resident urgent care). IChaim have personally reviewed and interpreted this examination/study. > Interpreting Provider: Chaim Martins on 06/20/2022 10:47 PM Problem List Shortness of breath POA: Unknown Abdominal pain, left upper quadrant POA: Unknown Dizziness POA: Unknown Hematemesis with nausea POA: Unknown Assessment and plan: Nausea, vomiting with Coffee-ground emesis Hx of heredia esophagus - ddx: upper GI bleed vs sandro garner tear vs gastric ulcer, duodenal ulcer vs exacerbation of Heredia's esophagus vs gastric/esophageal malignancy - abd/pelvis angiogram revealed no active arterial GI bleed, no diverticulitis (but diverticulosis present), tree-in-bud opacities in R>L dependent lung bases, concerning for infectious etiology - negative EGD, colonoscopy at OSH - Hgb 9 -> 8.3 (06/21/2022); Hgb BL of 9.9 on 02/14/22 - GI consulted, appreciate recs - cont NPO for EGD today - EGD with esophageal mucosal changes 2/2 to established long-segment Heredia's disease; no explanation for emesis found; duodenal bulb erythema biopsied - cont IV pantoprazole, LR - monitor daily Hgb; transfuse if Hgb <7 or HD unstable Dizziness, lightheadedness, reported syncope - ddx: arrhythmia vs valvular disease vs anemia vs adrenal insuff vs hypothyroidism - AM cortisol ordered - follow EGD - TSH from 02/16/22 WNL - Echo 02/15/22 w/ mild MS, EF 72%; holter in past was unrmearkable Iron deficiency anemia - ddx: GI bleeding vs nutritional vs medication - previous anemia studies 06/06/22 w/ iron 20, transferrin 162, TSAT 10%, TIBC 203, ferritin 94, folate 9.4, b12 382 - per GI, no s/s bleeding at this time - Pt not on iron - Consider starting iron Chronic hyponatremia - Na improving (134 today) (128 on admission) - continue to monitor HTN - continue amlodipine 5 mg daily (started at [facility]) T2DM Hypoglycemia likely 2/2 NPO vs recent malnutrition - A1C 5.3, BG not elevated, no need for insulin - hypoglycemic protocol in place Cervical myelopathy s/p C5-C6 laminectomies, C4-T2 Posterior spinal instrumentation and fusion by Dr. Taylor on - ortho c/s, appreciate recs - luba removed at bedside Inpatient Checklist LDA(s) Peripheral IV Left;Posterior Forearm (Active) Placement Date/Time: 06/20/222299 Orientation: Left;Posterior Location: Forearm Name/Credentials of person who placed: RN IV Catheter Size: 20 Gauge Technique: Anatomical Landmarks Number of start attempts: 1 Local Anesthetic Used?: None Pro... Number of days: 0 External Urinary Device 06/20/222114 (Active) Placement Date/Time: 06/20/222114 Procedure Tolerance: Well Number of days: 0 DVT ppx Held for procedure VTE Chemical Prophylaxis Orders (From admission, onward) None VTE Mechanical Prophylaxis Orders (From admission, onward) Ordered Start 06/20/221832 SEQUENTIAL COMPRESSION DEVICE (IMPLEMENT) CONTINUOUS 06/20/22 184 PT/OT Consulted No Diet DIET NPO Except: NO EXCEPTIONS Consult(s) None PCP Karrie Phillips MD, MD Code Full Code DC Dispo Inpatient Ori Iyer PA-C Feel free to text page me through [email or web address] Date of service: 06/21/2022 Attending Physician: Abeba Will DO * Leobardo Chisholm RN - 06/21/2022 12:24 AM CDT RN called [employer] for infusion channel. * Leobardo Chisholm RN - 06/20/2022 11:21 PM CDT RN called [employer] for SCD pump and [facility] brain w/ channel. * Leobardo Chisholm RN - 06/20/2022 11:00 PM CDT [facility] staff brought SCD pump and [facility] to bedside. [facility] would [facility] to unit with channel for pump. * Leobardo Chisholm RN - 06/20/2022 10:18 PM CDT RN called [employer] for SCD pump and [facility] brain + channel. * Leobardo Chisholm RN - 06/20/2022 9:15 PM CDT Problem: Pain/Discomfort Goal: Patient exhibits reduced pain/discomfort [...] in the flowsheet documentation) Outcome: Progressing Problem: Skin Integrity Goal: Skin integrity is maintained or improved Outcome: Progressing Problem: Fall Risk Goal: Patient will remain free of falls Outcome: Progressing Problem: Fluid and Electrolyte Imbalance Goal: Fluid and electrolyte balance are achieved/maintained Outcome: Progressing Problem: Nausea/Vomiting Goal: Patients functional goal is met Outcome: Progressing Problem: Elimination Goal: Elimination patterns are normal or improving Outcome: Progressing Problem: Nutrition Goal: Nutritional status is improving Outcome: Progressing * Joey Dickens MD - 06/20/2022 2:38 PM CDT U Orthopedic Spine Surgery Daily Progress Note Kandace Cole, 72 year old, female : 1950 CSN: [id number] Primary Care Physician: Karrie Phillips MD, MD - Admission Date/Time: 06/20/2022 1:47 PM - Hospital Day: 0 Subjective Patient seen and examined this in the ED. Arrived to clinic this morning for routine 2 week follow-up and stated she has had nausea/vomiting since yesterday. She was accompanied by her grandson who stated she has been vomiting dark red/black blood beginning this morning. H/o heredia's esophagus. States her neck pain is largely resolved and she has good strength. Vitals Temp (24hrs), Av.5 ??F (36.9 ??C), Min:98.3 ??F (36.8 ??C), Max:98.9 ??F (37.2 ??C) BP 170/61 Pulse 91 Temp 98.4 ??F (36.9 ??C) (Oral) Resp 16 Ht 1.549 m (5' 1 ) Wt 61.2 kg (135 lb) SpO2 100% Labs Recent Labs Component Name 06/20/22 1405 06/20/22 0949 06/08/22212 WBC 9.5 11.8* 9.2 HGB 9.3* 9.0* 7.9* HCT 27.6* 27.7* 23.9* PLTCOUNT 463* 449* 287 Recent Labs Component Name 06/20/22 0949 06/08/22 02106/07/22223 NA 128* 132* 130* POTASSIUM 4.3 5.4* 5.3* CL 93* 97* 102 CO2 26 24 24 BUN 14 25 25 CREATININE 1.02* 1.30* 1.26* GLUCOSE 91 97 121* Recent Labs Component Name 06/08/22 0213 06/07/22 02206/06/22 0307 MAGNESIUM 1.7 2.1 1.6 PHOS 2.5* 2.7* 3.2 Recent Labs Component Name 06/20/22 1405 PT 13.4 INR 1.0 No results for input(s): PTT in the last 94764 hours. Cultures No results found for this or any previous visit (from the past 248 hour(s)). Physical Exam General: Awake, alert, follows commands, ill appearing Neck: - C-collar/Ruby J: Present - Dressing: clean and dry Bilateral Upper Extremity: - Motor: Right Left [...] a 72 year old female with cervical myelopathy, now developing coffee-ground emesis - s/p C5-C6 laminectomies, C4-T2 PISF by Dr. Taylor on 06/04/2022 ??? Activity: Activity as tolerated in C-collar ??? PT/OT when able ??? Anticoagulation: Okay from an Ortho Spine perspective ??? Recommend pain control and bowel regimen ??? Wound care: luba removed at bedside today. o Okay to shower starting tomorrow ??? Diet: Okay from an Ortho Spine perspective ??? Current Dispo: pending emesis eval ??? Please page Ortho Spine with any questions or concerns Joey Dickens MD 06/20/2022 4:09 PM Associated attestation - Deon Taylor MD - 06/21/2022 10:34 AM CDT I have seen and evaluated the patient and agree with the resident's assessment and plan as stated above. I have independently reviewed all imaging studies. Deon Taylor MD documented in this encounter H&P Notes * Deepa Georges MD - 06/20/2022 6:16 PM CDT INTERNAL MEDICINE ADMISSION NOTE Name: Kandace Cole Admit Date and Time: 06/20/2022 1:47 PM Chief Complaint: Coffee-ground emesis HPI: Patient is a 72 year old year old female with a history significant for Heredia esophagus, hypertension, diabetes recent spine surgery in edema present a UA is coffee-ground emesis started yesterday.Patient has vomited 10 times today and more than 20 according to her yesterday couple of them are coffee-ground. Reported nausea, dehydration and poor oral intake, stool is greenish, no melena or hematochezia, no hematemesis. Reports abdominal pain. Aortic pain dizzy, which she is taking medicationfor that. No fever, night sweat or chills. Denies any chest pain, palpitation or shortness of breaths. Patient is a having chronic anemia and GI workup done on February 20. Patient denied being on blood thinner, or taking NSAIDs. She was at the clinic today for luba removal which she was told that she needs to go to the ER further vomiting. Open arrival to the ER, patient hemodynamically stable, blood pressure and higher side. initial lab unremarkable except for hemoglobin of 9 which is at baseline. And hyponatremia sodium of 128 and mild creatinine elevation around baseline. ROS: Positive findings in bold -GEN: fevers, chills, night sweats, weight changes, appetite changes. -HEENT: visual changes, rhinorrhea, epistaxis, sore throat. - CV: chest pain, palpitations, edema, orthopnea. - PULM: SOB, cough, wheezing - GI: nausea, vomiting, abd pain, diarrhea, constipation, hematochezia, melena. - : dysuria, hematuria, urinary frequency. - M/S: arthralgias, myalgias. - SKIN: rashes, pruritis. - NEURO: headaches, numbness, weakness. - PSYCH: suicidal ideation or intent Medical history: Medical problems: Patient Active Problem List: Degeneration of cervical intervertebral disc Syncope and collapse Trauma Injury of head, initial encounter Fall, initial encounter Multiple closed fractures of facial bone, initial encounter ([facility]) Abdominal pain Abnormal serum creatinine level Anemia Heredia's esophagus Cardiomegaly Chronic kidney disease Chronic obstructive pulmonary disease ([facility]) Chronic depression Dyspnea on exertion Benign essential hypertension Glaucoma Hyperkalemia Hyposmolality Hyperthyroidism Hypothyroidism Intractable chronic migraine without aura Iron deficiency anemia Leukocytosis Macular degeneration Migraine Ulnar neuropathy Type 2 diabetes mellitus ([facility]) Type 2 diabetes mellitus with stage 3 chronic kidney disease, without long-term current use of insulin ([facility]) Temporomandibular joint disorder Systemic sclerosis ([facility]) Sprain of ankle Sciatica Recurrent major depression in remission ([facility]) Raynaud's disease Primary fibromyalgia syndrome Polyp of colon Perineal pain Paronychia of toe of right foot Onychomycosis of toenail Nonexudative 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 Nausea Multiple bruises Mixed hyperlipidemia Mixed collagen vascular disease ([facility]) Shortness of breath Abdominal pain, left upper quadrant Dizziness Hematemesis with nausea Home medications: Prior to Admission medications Medication Sig Start Date End Date Taking? Authorizing Provider acetaminophen (Tylenol) 325 MG tablet Take 2 (two) tablets by mouth every 6 hours as needed Maximumallowable Acetaminophen amount = 4 Grams (4000 mg) / 24 hours. 02/19/22 Radha Flores PA-C artificial tears ophthalmic solution Instill 1 (one) drop into both eyes every 4 hours as needed 02/19/22 Radha Flores PA-C buPROPion SR 12hr (Wellbutrin-SR) 100 MG tablet Take 1 (one) tablet by mouth 2 times daily Dinesh Mccormick MD carvedilol (Coreg) 6.25 MG tablet Take 1 (one) tablet by mouth 2 times daily Dinesh Mccormick MD escitalopram (Lexapro) 20 MG tablet Take 1 (one) tablet by mouth once daily 02/20/22 Radha Flores PA-C gabapentin (Neurontin) 300 MG capsule Take 1 (one) capsule by mouth 3 times daily 06/08/22 Tammi Perez MD latanoprost (Xalatan) 0.005 % ophthalmic solution 03/07/22 Dinesh Mccormick MD lisinopril (Prinivil; Zestril) 20 MG tablet Take 1 (one) tablet by mouth once daily Dinesh Mccormick MD meclizine (Antivert) 25 MG tablet meclizine 25 mg tablet 1 po tid prn 07/13/21 Provider, MD Dinesh pantoprazole EC (Protonix) 40 MG tablet Take 1 (one) tablet by mouth once daily 02/20/22 Radha Flores PA-C pravastatin (Pravachol) 40 MG tablet pravastatin 40 mg tablet TAKE 1 TABLET BY MOUTH DAILY Provider, MD Dinesh QUEtiapine (SEROquel) 100 MG tablet Take 1 (one) tablet by mouth every evening 06/08/22 Tammi Perez MD saline nasal spray ([place]; Baby [place]) 0.65 % nasal spray [place] 1 (one) spray into each nostril as needed for Dry Nose 02/19/22 Radha Flores PA-C vitamin D3 (Cholecalciferol) 10 MCG (400 UNIT) tablet Take 2 (two) tablets by mouth once daily 06/09/22 Tammi Perez MD Allergies Allergen Reactions ??? Latex ??? Cyclobenzaprine ??? Fluoxetine ??? Naproxen ??? Sulfamethoxazole W-Trimethoprim ??? Eggs ??? Other demeral ??? Urecholine [Bethanechol Chloride] Surgeries: Past Surgical History: Procedure Laterality Date ??? Back Surgery lumbar and sacral laminectomy ??? CARPAL TUNNEL SURGERY Bilateral ??? Cervical Fusion N/A 06/04/2022 N/A; C5-C6 laminectomy, C4-T2 posterior instrumented spinal fusion ??? Cervical Laminectomy ??? Hysterectomy ??? NASAL POLYPECTOMY ??? Rotator Cuff Repair Bilateral ??? ULNAR NERVE TRANSPOSITION Left Family History: No family history on file. Social History: Social History Tobacco Use ??? Smoking status: Never Passive exposure: Never ??? Smokeless tobacco: Never Vaping Use ??? Vaping Use: Never used Substance Use Topics ??? Alcohol use: No ??? Drug use: Never Comment: cbd gummies twice a day Objective: BP 170/61 Pulse 91 Temp 98.4 ??F (36.9 ??C) (Oral) Resp 16 Ht 1.549 m (5' 1 ) Wt 61.2 kg (135 lb) SpO2 100% Estimated body mass index is 25.51 kg/m?? as calculated from the following: Height as of this encounter: 1.549 m (5' 1 ). Weight as of this encounter: 61.2 kg (135 lb). EXAM GENERAL: No acute distress. HEENT: NCAT, EOMI. Sclera anicteric NECK: Supple, trachea midline LUNGS: CTAB, no wheezes, rales, or rhonchi HEART: RRR, Normal S1, S2, No murmurs/rubs/gallops. ABD: Non-distended, non-tender, Bowel sounds present. No organomegaly SKIN: No generalized rashes. No jaundice EXT: No clubbing, cyanosis or edema. NEURO: A&Ox4. No focal neural deficits PSYCH: Appropriate affect Data: Data reviewed. Pertinent Labs: Labs: Recent Labs Component Name 06/20/22 1405 06/20/22 0949 06/08/22 0213 02/17/22 0612 02/16/22 0757 WBC 9.5 11.8* 9.2 - 5.7 HGB 9.3* 9.0* 7.9* - 10.5* HCT 27.6* 27.7* 23.9* - 31.8* NA - 128* 132* - 131* CL - 93* 97* - 100 BUN - 14 25 - 27* CREATININE - 1.02* 1.30* - 1.77* PHOS - - 2.5* - 3.9 CALCIUM - 9.8 8.4 - 9.6 PT 13.4 - - - - INR 1.0 - - - - AST - 16 - - - ALT - 10 - - - ALKPHOS - 66 - - - TBILI - 0.6 - - - TSH - - - - 1.522 - = values in this interval not displayed. Imaging: XR CERVICAL SPINE 2 OR 3VW Result Date: 06/20/2022 IMPRESSION: Unchanged appearance of posterior spinal fusion. Stable appearance of severe degenerative changes in the mid to lower cervical spine. Report dictated by Yasir Pierre MD (md do resident urgent care). I, Kamila Barber MD have personally reviewed and interpreted this examination/study. > Interpreting Provider: Kamila Barber MD on 06/20/2022 4:25 PM Assessment & Plan: Came with nausea/vomiting/coffee-ground; 2/2 upper GI bleed?. Heredia esophagus. Dehydration. Hyperchloremia/Hyponatremia,2/2 hypovolemic. Chronic anemia. Diabetes. Hypertension. C5-C6 laminectomy, ??C4-T2 posterior instrumented spinal fusion with Orthopedic Surgery ON 06/04. Type and crossmatch. GI consulted, recommend clear liquid diet, keep the patient NPO midnight for possible EGD tomorrow.. Continue IV pantoprazole Follow abdominal angiogram. IV fluid. Monitor hemoglobin, transfuse for hemoglobin less than 7 or hemodynamic instability. Started on amlodipine 5 for high blood pressure. Status post cervical laminectomy, activity per orthopedic note Nutrition/Diet: Clear liquid, NPO post midnight. DVT prophylaxis: Mechanical F/E/N: keep K 3.5-4.0 meq, Mg~2.0 mg/dl, Phosphorous 3.0-4.0 mmol/l Disposition: Inpatient care Deepa Georges MD 06/20/2022 6:16 PM documented in this encounter Consult Notes * Naif Tenorio MD - 06/21/2022 7:20 AM CDT GASTROENTEROLOGY CONSULT Kandace Cole Age: [id number] year old Date of : 1950 Date of Admission: 06/20/2022 Reason for Consult: coffee ground emesis Requesting Team: Medicine Subjective: History of Present Illness: Kandace Cole is a 72 year old female with a history of Heredia's esophagus, iron deficiency anemia, HTN, T2DM, CKD, RLS, and recent C5-C6 laminectomy w/ C4- T2 PISF 06/04/2022 who presents for coffee ground emesis for which we were consulted. Upon discussion she states 2 days ago she began to have persistent N/V and yesterday had numerous episodes of, coffee ground emesis as she described and others that were black. She states they eacharound a cup in quantity and denies any oral/nasal trauma prior to the onset of these symptoms. States she does have remote history of hematemesis and coffee ground emesis, both of which were, yearsago and were attributed to epistaxis or Heredia's esophagus each time. States she is routinely dizzy/lightheaded for the past few months which has repeatedly been attributed to hyponatremia. Denies NSAID usage, states she uses tylenol. Denies anticoagulation. Denies hematemesis, melena, orhematochezia. On admission HDS, Hgb around baseline, currently 8.3, Cr around baseline, currently 1.11. CTA obtained w/o extravasation. Prior endoscopies notable for remote EGD hx of Heredia's esophagus in 2019. States most recent endoscopic evaluation was 12/2022 in [place]. States at that time there was continued Heredia's otherwise unremarkable. Colonoscopy at that time unremarkable, previously had polyps removed. Significant family history of gastric, esophageal, and colon CA. Past Medical History: Patient Active Problem List: Degeneration of cervical intervertebral disc Syncope and collapse Trauma Injury of head, initial encounter Fall, initial encounter Multiple closed fractures of facial bone, initial encounter (CMS/HCC) Abdominal pain Abnormal serum creatinine level Anemia Heredia's esophagus Cardiomegaly Chronic kidney disease Chronic obstructive pulmonary disease (CMS/HCC) Chronic depression Dyspnea on exertion Benign essential hypertension Glaucoma Hyperkalemia Hyposmolality Hyperthyroidism Hypothyroidism Intractable chronic migraine without aura Iron deficiency anemia Leukocytosis Macular degeneration Migraine Ulnar neuropathy Type 2 diabetes mellitus (CMS/HCC) Type 2 diabetes mellitus with stage 3 chronic kidney disease, without long-term current use of insulin (CMS/HCC) Temporomandibular joint disorder Systemic sclerosis (CMS/HCC) Sprain of ankle Sciatica Recurrent major depression in remission (CMS/HCC) Raynaud's disease Primary fibromyalgia syndrome Polyp of colon Perineal pain Paronychia of toe of right foot Onychomycosis of toenail Nonexudative 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 Nausea Multiple bruises Mixed hyperlipidemia Mixed collagen vascular disease (CMS/HCC) Shortness of breath Abdominal pain, left upper quadrant Dizziness Hematemesis with nausea Past Medical History: Diagnosis Date ??? Anemia ??? Heredia's esophagus ??? CKD (chronic kidney disease), stage [...] Repair Bilateral ??? ULNAR NERVE TRANSPOSITION Left Medications: Medications Prior to Admission Medication Sig Dispense Refill ??? acetaminophen (Tylenol) [...] tablet by mouth 2 times daily ??? carvedilol (Coreg) 6.25 MG tablet Take 1 (one) tablet by mouth 2 times daily ??? escitalopram (Lexapro) 20 MG tablet Take 1 (one) tablet by mouth once daily ??? gabapentin (Neurontin) 300 MG capsule Take 1 (one) capsule by mouth 3 times daily 30 capsule 3 ??? latanoprost (Xalatan) 0.005 % ophthalmic solution [...] TABLET BY MOUTH DAILY ??? QUEtiapine (SEROquel) 100 MG tablet Take 1 (one) tablet by mouth every evening ??? saline nasal spray ([place]; Baby [place]) 0.65 % nasal spray [place] 1 (one) spray into each nostril as needed for Dry Nose 15 mL 0 ??? vitamin D3 (Cholecalciferol) 10 MCG (400 UNIT) tablet Take 2 (two) tablets by mouth once daily Current Facility-Administered Medications Medication ??? iopamidol (Isovue 370) 76 % contrast ??? lactated ringers infusion ??? pantoprazole (Protonix) injection 40 mg ??? scopolamine (Transderm-Scop) 1 patch And ??? scopolamine patch placement confirmation Allergies: Allergies Allergen Reactions ??? Latex ??? Cyclobenzaprine ??? Fluoxetine ??? Naproxen ??? Sulfamethoxazole W-Trimethoprim ??? Eggs ??? Other demeral ??? Urecholine [Bethanechol Chloride] Social History: Social History Tobacco Use ??? Smoking status: Never Passive exposure: Never ??? Smokeless tobacco: Never Substance Use Topics ??? Alcohol use: No Family History: As above, family history of colon, gastric, and esophageal CA. Review of Systems: As per HPI. Objective: Physical Exam: BP 147/56 Pulse 99 Temp 98.9 ??F (37.2 ??C) (Oral) Resp 16 Ht 1.549 m (5' 1 ) Wt 61.2 kg (135 lb) SpO2 98% Wt Readings from Last 5 Encounters: 06/20/22 61.2 kg (135 lb) 06/04/22 60.5 kg (133 lb 6.4 oz) 05/15/22 61.6 kg (135 lb 12.8 oz) 05/15/22 61.3 kg (135 lb 3.2 oz) 03/13/22 64.7 kg (142 lb 9.6 oz) General: Pleasant, in no distress. HEENT: Conjunctivae/corneas clear. Moist mucous membranes. No epistaxis or gingival bleeding. C-collar in place. Lungs: Clear to auscultation bilaterally, normal work of breathing. Heart: Normal rate and regular rhythm, no appreciable murmurs. Abdomen: Soft, non-tender, non-distended, bowel sounds normal. Rectal: Deferred. Extremities: No edema, warm to touch. Dermatologic: No observed rashes on exposed skin. Neuro: Alert, cooperative, no gross focal signs, no asterixis. Psych: Goal-directed thought process. Labs: Recent Labs Component Name 06/21/22 0203 06/20/22 2218 06/20/22 1405 06/20/22 0949 06/08/22 0213 06/07/22 0224 WBC 8.0 - 9.5 11.8* 9.2 11.8* HGB 8.3* 8.5* 9.3* 9.0* 7.9* 8.5* MCV 93.5 - 89.9 91.7 90.5 88.4 INR - - 1.0 - - - Recent Labs Component Name 06/21/22 0203 06/20/22 0949 06/08/22 0213 NA 134* 128* 132* CL 96* 93* 97* CO2 25 26 24 BUN 14 14 25 CREATININE 1.11* 1.02* 1.30* Recent Labs Component Name 06/21/22 0203 06/20/22 0949 02/16/22 0757 02/14/22 2355 AST 15 16 - 16 ALT 10 10 - 13 ALKPHOS 62 66 - 58 TBILI 0.7 0.6 - 0.5 ALB 3.3* 3.5 3.6 3.4 Imaging: XR CERVICAL SPINE 2 OR 3VW Result Date: 06/20/2022 IMPRESSION: Unchanged appearance of posterior spinal fusion. Stable appearance of severe degenerative changes in the mid to lower cervical spine. Report dictated by Yasir Pierre MD (md do resident urgent care). Kamila Narvaez MD have personally reviewed and interpreted this examination/study. > Interpreting Provider: Kamila Barber MD on 06/20/2022 4:[address] ANGIO ABDOMEN PELVIS Result Date: 06/20/2022 Impression: 1.No arterial contrast extravasation within the gastrointestinal lumen to suggest active arterial gastrointestinal bleed. 2.Colonic diverticulosis without evidence of diverticulitis. 3.Small hiatal hernia. 4.Tree-in-bud opacities in the right greater than left dependent lung bases, concerning for infectious etiology. > Dictated by Sherlyn Hopkins DO (md do resident urgent care). IChaim have personally reviewed and interpreted this examination/study. > Interpreting Provider: Chaim Martins on 06/20/2022 10:47 PM Procedures: Prior endoscopies notable for remote EGD hx of Heredia's esophagus in 2019. States most recent endoscopic evaluation was 12/2022 in [place]. States at that time there was continued Heredia's otherwise unremarkable. Colonoscopy at that time unremarkable, previously had polyps removed. Assessment: Kandace Cole is a 72 year old female with a history of Heredia's esophagus, iron deficiency anemia, HTN, T2DM, CKD, RLS, and recent C5-C6 laminectomy w/ C4- T2 PISF 06/04/2022 who presents for coffee ground emesis for which we were consulted. #Coffee ground emesis - Bleeding is most likely upper GI in origin and differential includes sandro garner tear, gastric ulcer / gastritis, duodenal ulcer, esophagitis, AVMs and malignancy. ?? Symptoms and history sounds most consistent w/ sandro garner tear, however personal history is concerning for esophagitis. Remains HDS and Hgb remains at baseline, no recurrent episodes since yesterday. #Heredia's esophagus ?? Unable to view previous record of this. Previously taking pantoprazole 40 mg daily as an outpatient. #Iron deficiency anemia - occult GI loss vs nutritional vs medication vs autoimmune ?? Previous anemia studies 06/06/2022 w/ iron 20, transferrin 162, trans % sat 10, TIBC 203, [id number], folate 9.4, B12 382. No s/s of bleeding at this time. Hgb remains around baseline. Remote hx ofiron transfusions. Long history of PPI, less likely this is the culprit. Previous EGD w/ bx per herreport unremarkable, less likely autoimmune gastritis or H pylori infection. #Syncope/pre-syncope - arrhythmia vs valvular disease vs anemia vs adrenal insufficiency vs hypothyroidism ?? Sodium currently around baseline, 134 today, but continues to be symptomatic prior to presentation. Hgb appears to be around baseline, recent endoscopic evaluation and will repeat EGD today w/ VCEto follow. Consider AM cortisol to evaluate adrenal function, no custodial steroid use per history.TSH from 02/16/2022 wnl. Echo 02/15/2022 w/ mild MS, EF 72%. Per history has worn holter in the past that was unremarkable. ?? Other co-morbidities: HTN, T2DM, CKD, RLS. Recommendations: -Recommend endoscopic evaluation given history. Plan for EGD and Video Capsule Endoscopy. -In anticipation for possible endoscopy please ensure the following: o Maintain NPO status o Hold anticoagulation/antiplatelet agents if able o Goal Hb > 7, PLT > 50, INR < 1.5, K > 4, Mg > 2 -Please ensure 2 large bore PIV X 2 -Please monitor for signs and symptoms of hemorrhage including tachycardia, hypotension, melena, hematochezia, hematemesis and record volume/quality of hemorrhage. Please notify on-call GI fellow forsignificant bloody output paired with hemodynamic instability -Agree with IV pantoprazole 40 mg BID -Please obtain AM cortisol to further evaluate recurrent syncope/pre-syncope symptoms Patient and above recommendations to be discussed with GI attending, Dr. Mcpherson, as well as the primary team. Recommendations are tentative until staffed. Thank you for allowing us to participate in the care of this patient. We will continue to follow this patient with you. Please do not hesitate to contact us with further questions. Naif Tenorio MD Internal Medicine, PGY-1 [facility] Associated attestation - Ike Mcpherson MD - 06/21/2022 11:56 AM CDT I have personally seen and examined this patient. I agree with the ice house supervisor's findings, assessment and plan as outlined. In addition: Coffee ground emesis after initial clear vomitus. H/O Heredia's esophagus. Unable to take pantoprazole for a few days due to lying in bed and not eating much. Chronic iron deficiency anemia of unknown cause Feeling OK today No melena Recurrent syncopal episodes of unkown cause (attributed to hyponatremia) Minimal epigastric tenderness UGI bleed, possibly due to a MW tear or GERD exacerbation Iron deficiency anemia, longstanding, of uncertain cause. Negative EGD and colonoscopy at OSH. R/O celiac disease or SB source of bleeding Syncope, attributed to hyponatremia with falls, LOC and fractures. Low sodium seems unlikely to be the actual etoilogy. Rec.: EGD with duodenal biopsies and capsule placement today AM serum cortisol May need to re-evaluate the syncopal episodes for a cardiac or neurological etiology. documented in this encounter ED Notes * Angela Lua RN - 06/20/2022 7:01 PM CDT Report called to Homero Gunderson RN for RM [id number]. * Angelica Avery - 06/20/2022 2:45 PM CDT Kandace Cole [id number] [facility] EMERGENCY DEPARTMENT History Chief Complaint Patient presents with ??? VOMITING BLOOD Pt arrived via private vehicle. Pt states she was encouraged to come here from her clinic appointment today d/t dark red emesis. Pt states she is having increased dizziness with movement and nausea. Pt states she is chilling. ADAM Cole is a 72 year old female with PMH of Heredia's esophagus, DM2, CKD, RLS and recent C5-C6 laminectomy and C4-T2 spinal fusion who presents to the ED due to multiple episodes of dark red emesis. The patient states that she first vomited when she was in the parking lot of her orthopedic surgeon's office this morning. She described the emesis as coffee-ground in appearance. She states that she has been feeling nauseous for the last few days as well. Since her surgery she has been experiencing dizziness and brain fog . She notes that she has some pain in her stomach that has been persistent. She denies any other associated symptoms including decreased sensation and urinary changes. She has a history of Heredia's esophagus that was diagnosed over 30 years ago and states she has never had a serious hospitalization or vomiting blood like her present state. She has multiple family members who have had cancers including gastric cancer and mesothelioma. The patient began vomiting towards the end of the physical exam. Past Medical History: Diagnosis Date ??? Anemia ??? Heredia's esophagus ??? CKD (chronic kidney disease), stage III (CMS/HCC) ??? Diabetes ??? Disease of esophagus ??? Fibromyalgia ??? Glaucoma ??? HTN (hypertension) ??? Macular degeneration ??? Osteoarthritis ??? Raynaud disease ??? Sleep apnea ??? Ulnar neuropathy Past Surgical History: Procedure Laterality Date ??? Back Surgery lumbar and sacral laminectomy ??? CARPAL TUNNEL SURGERY Bilateral ??? Cervical Fusion N/A 06/04/2022 N/A; C5-C6 laminectomy, C4-T2 posterior instrumented spinal fusion ??? Cervical Laminectomy ??? Hysterectomy ??? NASAL POLYPECTOMY ??? Rotator Cuff Repair Bilateral ??? ULNAR NERVE TRANSPOSITION Left No family history on file. Social History Socioeconomic History ??? Marital status: [...] of Health Financial Resource Strain: Low Risk ??? Difficulty of Paying Living Expenses: Not hard at all Food Insecurity: No Food Insecurity ??? Worried About Running Out of Food in the Last Year: Never true ??? Ran Out of Food in the Last Year: Never true Transportation Needs: No Transportation Needs ??? Lack of Transportation (Medical): No ??? Lack of Transportation (Non-Medical): No Stress: No Stress Concern Present ??? Feeling of Stress : Not at all Housing Stability: Low Risk ??? Unable to Pay for Housing in the Last Year: No ??? Number of Places Lived in the Last Year: 1 ??? Unstable Housing in the Last Year: No Review of Systems Review of Systems Constitutional: Positive for chills. Negative for fever. Eyes: Negative for double vision. Respiratory: Positive for shortness of breath. Negative for cough. Cardiovascular: Negative for chest pain, palpitations and leg swelling. Gastrointestinal: Positive for abdominal pain, nausea and vomiting. Negative for blood in stool. Genitourinary: Negative for dysuria, frequency and hematuria. Musculoskeletal: Negative for back pain, joint pain and neck pain. Neurological: Positive for dizziness. Negative for sensory change and headaches. Physical Exam BP 170/61 Pulse 91 Temp 98.4 ??F (36.9 ??C) (Oral) Resp 16 Ht 1.549 m (5' 1 ) Wt 61.2 kg (135 lb) LMP (LMP Unknown) SpO2 100% BMI 25.51 kg/m?? Physical Exam Constitutional: General: She is not in acute distress. HENT: Head: Normocephalic. Neck: Comments: Patient wearing C-collar Cardiovascular: Rate and Rhythm: Normal rate and regular rhythm. Heart sounds: No murmur heard. No friction rub. No gallop. Pulmonary: Effort: Respiratory distress present. Breath sounds: Normal breath sounds. No wheezing. Chest: Chest wall: No tenderness. Abdominal: General: Bowel sounds are normal. Palpations: Abdomen is soft. Tenderness: There is abdominal tenderness. There is no guarding. Skin: General: Skin is warm and dry. Neurological: General: No focal deficit present. Mental Status: She is alert and oriented to person, place, and time. Sensory: Sensory deficit present. Medications Current Outpatient Medications Medication Sig Dispense Refill ??? acetaminophen (Tylenol) [...] tablet by mouth 2 times daily ??? carvedilol (Coreg) 6.25 MG tablet Take 1 (one) tablet by mouth 2 times daily ??? escitalopram (Lexapro) 20 MG tablet Take 1 (one) tablet by mouth once daily ??? gabapentin (Neurontin) 300 MG capsule Take 1 (one) capsule by mouth 3 times daily 30 capsule 3 ??? latanoprost (Xalatan) 0.005 % ophthalmic solution [...] TABLET BY MOUTH DAILY ??? QUEtiapine (SEROquel) 100 MG tablet Take 1 (one) tablet by mouth every evening ??? saline nasal spray ([place]; Baby [place]) 0.65 % nasal spray [place] 1 (one) spray into each nostril as needed for Dry Nose 15 mL 0 ??? vitamin D3 (Cholecalciferol) 10 MCG (400 UNIT) tablet Take 2 (two) tablets by mouth once daily Procedures Procedures Lab/SPO2 Interpretation Hospital Encounter on 06/20/22 CBC W AUTO DIFFERENTIAL Result Value Ref Range WBC 11.8 (H) 3.5 - 10.5 10??3/uL RBC 3.02 (L) 3.80 - 5.20 10??6/uL Hemoglobin 9.0 (L) 12.0 - 15.6 g/dL Hematocrit 27.7 (L) 35.0 - 45.0 % MCV 91.7 80.7 - 98.3 fL MCH 29.8 26.7 - 34.0 pg MCHC 32.5 30.8 - 35.9 g/dL RDW-SD 45.6 36.0 - 50.0 fL RDW-CV 13.8 11.2 - 14.8 % Platelet Count 449 (H) 150 - 400 10??3/uL MPV 9.0 (L) 9.4 - 12.9 fL nRBC Absolute 0.00 0 10??3/uL nRBC Auto 0.0 0 /100 WBC Neutrophils % 84.6 (H) 35.0 - 70.0 % Lymphocytes % 6.7 (L) 20.0 - 43.0 % Monocytes % 6.6 5.0 - 13.0 % Eosinophils % 1.1 0.0 - 6.0 % Basophil % 0.6 0.0 - 2.0 % Neutrophils Absolute 9.94 (H) 1.60 - 7.00 10??3/uL Lymphocyte Absolute 0.79 (L) 1.10 - 3.90 10??3/uL Monocytes Absolute 0.77 0.26 - 1.07 10??3/uL Eosinophils Absolute 0.13 0.00 - 0.47 10??3/uL Basophils Absolute 0.07 0.00 - 0.08 10??3/uL Immature Granulocytes % 0.4 0.0 - 1.0 % Immature Granulocytes Absolute 0.05 COMPREHENSIVE METABOLIC PANEL Result Value Ref Range BUN 14 7 - 26 mg/dL Creatinine 1.02 (H) 0.56 - 0.96 mg/dL Sodium 128 (L) 136 - 145 mmol/L Potassium 4.3 3.5 - 4.5 mmol/L Chloride 93 (L) 98 - 107 mmol/L CO2 26 22 - 29 mmol/L Glucose 91 70 - 115 mg/dL Calcium 9.8 8.4 - 10.2 mg/dL Protein Total 6.5 6.0 - 8.3 g/dL Albumin 3.5 3.4 - 5.0 g/dL Bilirubin Total 0.6 0.2 - 1.2 mg/dL Alkaline Phosphatase 66 40 - 150 U/L ALT 10 5 - 55 U/L AST 16 5 - 34 U/L Anion Gap 13 8 - 18 BUN/Creatinine Ratio 14 7 - 23 Osmolality Calculated 266 (L) 270 - 300 mOsm/kg Albumin/Globulin Ratio 1.2 1.1 - 2.3 eGFR by CKD-EPI 58 (L) >=90 mL/min/1.73 m2 TROPONIN-I HIGH SENSITIVE BASELINE + 1HR Result Value Ref Range Troponin I High Sensitive 7 <=14 ng/L TROPONIN-I HIGH SENSITIVE REFLEX 1HOUR Result Value Ref Range Troponin I High Sensitive 8 <=14 ng/L Delta Troponin I HS CBC W/O DIFFERENTIAL Result Value Ref Range WBC 9.5 3.5 - 10.5 10??3/uL RBC 3.07 (L) 3.80 - 5.20 10??6/uL Hemoglobin 9.3 (L) 12.0 - 15.6 g/dL Hematocrit 27.6 (L) 35.0 - 45.0 % MCV 89.9 80.7 - 98.3 fL MCH 30.3 26.7 - 34.0 pg MCHC 33.7 30.8 - 35.9 g/dL RDW-SD 45.2 36.0 - 50.0 fL RDW-CV 14.0 11.2 - 14.8 % Platelet Count 463 (H) 150 - 400 10??3/uL MPV 9.2 (L) 9.4 - 12.9 fL nRBC Absolute 0.00 0 10??3/uL nRBC Auto 0.0 0 /100 WBC XR CHEST 2VW (Results Pending) Progress Notes ED Course Clinical Impressions as of 06/20/22 1546 Dizziness Shortness of breath Abdominal pain, left upper quadrant Bloody emesis and gastric pain Ddx: bowel perforation vs gastric ulcer vs exacerbation of Heredia'sesophagus vs gastric cancer vs pancreatitis Dizziness Ddx: sequelae of recent spinal surgery vs volume depleted vs UT - pantoprazole 40mg given - ondansetron 4mg IV ordered - CBC, CMP, troponin, PT-INR, lipase and lactic acid are wnl for her MDM Orders Placed This Encounter ??? XR CHEST 2VW ??? CBC W AUTO DIFFERENTIAL ??? COMPREHENSIVE METABOLIC PANEL ??? TROPONIN-I HIGH SENSITIVE BASELINE + 1HR ??? URINALYSIS REFLEX TO MICROSCOPIC NO CULTURE ??? TROPONIN-I HIGH SENSITIVE REFLEX 1HOUR ??? CBC W/O DIFFERENTIAL ??? PT-INR [facility] ??? LIPASE BLOOD ??? LACTIC ACID BLOOD ??? EKG 12-LEAD ??? pantoprazole (Protonix) injection 40 mg ??? ondansetron (Zofran) injection 4 mg Associated attestation - Adolph Mckinney MD - 06/27/2022 7:00 AM CDT 06/27/2022 06:59 For this patient encounter, I reviewed the medical student documentation, treatment plan, and medical decision making; and I had wajo-[id number]-rxna time with this patient. I have conducted an independent evaluation of this patient including a focused history and a physical exam which are in concordance with the student documentation except as otherwise noted. * Jinny Metcalf MD - 06/20/2022 2:07 PM CDT Emergency Medicine Resident Provider Note Chief Complaint Patient presents with ??? VOMITING BLOOD Pt arrived via private vehicle. Pt states she was encouraged to come here from her clinic appointment today d/t dark red emesis. Pt states she is having increased dizziness with movement and nausea. Pt states she is chilling. HISTORY History obtained from: patient 72 year old year old female with hx as below including Heredia's esophagus, HTN, DM, and recent spine surgery, presents to ED with one day of hematemesis. Pt reports waking with abdominal pain and nausea yesterday morning. This morning, while on her way to a doctor appointment, she had an episode of dark red emesis and was instructed to go to the ER. Pt has never experienced this before. Describes abdominal pain, nausea, and several episodes of emesis throughout the day today. No melena or bright red blood per rectum. Pt notes she has been feeling dizzy and lightheaded for the past month or so. Has had several falls at home (one in which she states she fractured her jaw). With each fall, ptstates she doesn't remember the episode. No history of arrhythmia that she is aware of, but states she does have a murmur. No chest pain at this time. Past Medical History: Diagnosis Date ??? Anemia ??? Heredia's esophagus ??? CKD (chronic kidney disease), stage III (CMS/HCC) ??? Diabetes ??? Disease of esophagus ??? Fibromyalgia ??? Glaucoma ??? HTN (hypertension) ??? Macular degeneration ??? Osteoarthritis ??? Raynaud disease ??? Sleep apnea ??? Ulnar neuropathy Past Surgical History: Procedure Laterality Date ??? Back Surgery lumbar and sacral laminectomy ??? CARPAL TUNNEL SURGERY Bilateral ??? Cervical Fusion N/A 06/04/2022 N/A; C5-C6 laminectomy, C4-T2 posterior instrumented spinal fusion ??? Cervical Laminectomy ??? Hysterectomy ??? NASAL POLYPECTOMY ??? Rotator Cuff Repair Bilateral ??? ULNAR NERVE TRANSPOSITION Left No family history on file. Social History Socioeconomic History ??? Marital status: [...] of Health Financial Resource Strain: Low Risk ??? Difficulty of Paying Living Expenses: Not hard at all Food Insecurity: No Food Insecurity ??? Worried About Running Out of Food in the Last Year: Never true ??? Ran Out of Food in the Last Year: Never true Transportation Needs: No Transportation Needs ??? Lack of Transportation (Medical): No ??? Lack of Transportation (Non-Medical): No Stress: No Stress Concern Present ??? Feeling of Stress : Not at all Housing Stability: Low Risk ??? Unable to Pay for Housing in the Last Year: No ??? Number of Places Lived in the Last Year: 1 ??? Unstable Housing in the Last Year: No ROS See HPI. PHYSICAL EXAM BP 170/61 Pulse 91 Temp 98.4 ??F (36.9 ??C) (Oral) Resp 16 Ht 1.549 m (5' 1 ) Wt 61.2 kg (135 lb) SpO2 100% Physical Exam Constitutional: Appearance: She is ill-appearing (episode of emesis while at bedside, dark brown). HENT: Head: Normocephalic and atraumatic. Eyes: Conjunctiva/sclera: Conjunctivae normal. Neck: Comments: C-collar in place since surgery Cardiovascular: Rate and Rhythm: Normal rate and regular rhythm. Pulses: Normal pulses. Heart sounds: Murmur heard. Pulmonary: Effort: No respiratory distress. Breath sounds: Normal breath sounds. No wheezing. Comments: Increased work of breathing, O2 sat high 90s Abdominal: General: Bowel sounds are normal. There is no distension. Palpations: Abdomen is soft. Tenderness: There is abdominal tenderness (LUQ). There is guarding. There is no rebound. Musculoskeletal: Right lower leg: No edema. Left lower leg: No edema. Skin: General: Skin is warm and dry. Neurological: General: No focal deficit present. Mental Status: She is alert and oriented to person, place, and time. MEDICAL DECISION MAKING Problem List: nausea, vomiting, questionable hematemesis, dizziness, dyspnea, recent spine surgery Impression: 72yo F with PMH Heredia's esophagus and anemia of chronic disease presenting to ER withnausea and vomiting, concern for hematemesis. Exam remarkable for LUQ abdominal pain. VSS. DDx: GI bleed, gastritis, gastroenteritis, UT, cardiac arrhythmia, electrolyte derangement; less concern for pancreatitis or cholangitis Plan: Labs, imaging, EKG; IV protonix, zofran, GI consult RESULTS Labs Reviewed CBC W AUTO DIFFERENTIAL - Abnormal; Notable for the following components: Result Value WBC 11.8 (*) RBC 3.02 (*) Hemoglobin 9.0 (*) Hematocrit 27.7 (*) Platelet Count 449 (*) MPV 9.0 (*) Neutrophils % 84.6 (*) Lymphocytes % 6.7 (*) Neutrophils Absolute 9.94 (*) Lymphocyte Absolute 0.79 (*) All other components within normal limits COMPREHENSIVE METABOLIC PANEL - Abnormal; Notable for the following components: Creatinine 1.02 (*) Sodium 128 (*) Chloride 93 (*) Osmolality Calculated 266 (*) eGFR by CKD-EPI 58 (*) All other components within normal limits CBC W/O DIFFERENTIAL - Abnormal; Notable for the following components: RBC 3.07 (*) Hemoglobin 9.3 (*) Hematocrit 27.6 (*) Platelet Count 463 (*) MPV 9.2 (*) All other components within normal limits TROPONIN-I HIGH SENSITIVE BASELINE + 1HR - Normal PT-INR [facility] - Normal LIPASE BLOOD - Normal Narrative: Lipase results from the [employer] Al[employer] analyzer may not be comparable with other methodologies. LACTIC ACID BLOOD - Normal TROPONIN-I HIGH SENSITIVE REFLEX 1HOUR URINALYSIS REFLEX TO MICROSCOPIC NO CULTURE TYPE + SCREEN PANEL XR CERVICAL SPINE 2 OR 3VW Final Result PROCEDURE: XR CERVICAL SPINE 2 OR 3VW, DATE/TIME OF EXAM: 06/20/2022 3:13 PM, LOCATION [facility] INDICATION: R42: Dizziness R06.02: Shortness of breath ADDITIONAL CLINICAL INFORMATION: Ordering Provider Reason For Exam: s/p PISF COMPARISON: X-ray of the cervical spine 06/05/2022, CT of the cervical spine 02/15/2022 FINDINGS: Redemonstration of posterior spinal fusion extending from C4 to T2 with overlying skin luba. Hardware appears unchanged from prior examination and intact. Slight anterolisthesis of C3 on C4 is unchanged. Severe degenerative changes of the cervical spine extending from C3 to the distal cervical spine. 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 Disc spaces are seen at the C4-C5 and C5-C6. The predental interval and prevertebral soft tissues are normal. The bones are diffusely demineralized. IMPRESSION: Unchanged appearance of posterior spinal fusion. Stable appearance of severe degenerative changes in the mid to lower cervical spine. Report dictated by Yasir Pierre MD (md do resident urgent care). I, Kamila Barber MD have personally reviewed and interpreted this examination/study. > Interpreting Provider: Kamila Barber MD on 06/20/2022 4:25 PM XR CHEST 2VW Final Result PROCEDURE: XR CHEST 2VW, DATE/TIME OF EXAM: 06/20/2022 3:03 PM, LOCATION [facility] INDICATION: R06.02: Shortness of breath ADDITIONAL CLINICAL [...] heads. Report dictated by Yasir Pierre MD (md do resident urgent care). I, Haroldo Ball MD have personally reviewed and interpreted this examination/study. > Interpreting Provider: Haroldo Ball MD on 06/20/2022 3:[address] ANGIO ABDOMEN PELVIS (Results Pending) INTERVENTIONS: Medications ondansetron (Zofran) injection 4 mg (has no administration in time range) pantoprazole (Protonix) injection 40 mg (has no administration in time range) iopamidol (Isovue 370) 76 % contrast (has no administration in time range) pantoprazole (Protonix) injection 40 mg (40 mg Intravenous $ Given 06/20/22 0267) Procedures None ED COURSE Patient seen and evaluated, available studies reviewed I personally interpreted the EKG. EKG Interpretation: rate 88, sinus rhythm, normal intervals and axis I personally interpreted the following labs. CBC shows stable normocytic anemia, 9.0 then 9.3. CMP grossly unremarkable with exception of hyponatremia, apparently chronic. I personally interpreted the following X-Ray(s). CXR shows degenerative spinal changes, no pulmonary abnormalities (consolidations, effusions, etc). CT angio pending I personally discussed this case with the following consultants: GI - recommended IV protonix, clear liquid diet, NPO at midnight Clinical Impressions as of 06/20/22 1641 Dizziness Shortness of breath Abdominal pain, left upper quadrant Hematemesis with nausea Anemia, unspecified type Medications given in ED: Yes - protonix, zofran Social determinants of health: Yes Limiting social determinants of health: None. Amount and/or Complexity of Data Reviewed medical complexity: Triage notes and available nursing notes reviewed , Clinical lab tests: orderedand reviewed, Tests in the radiology section of CPT??: ordered and independent interpretation, Independent visualization of images: yes, Review and summarize past medical records: yes and Discuss thepatient with other providers: yes ?? MDM: Patient is currently hemodynamically stable with stable hemoglobin. Would benefit from further workup for likely GI bleed. Shared decision making: Results of workup including labs and imaging discussed with patient at length. All questions answered. Patient agreeable to admission, will admit. ED FINAL DIAGNOSIS 1. Dizziness 2. Shortness of breath 3. Abdominal pain, left upper quadrant 4. Hematemesis with nausea 5. Anemia, unspecified type DISPOSITION After discussion with Internal Medicine, patient will be admitted to their service for further management of care. I have reviewed the diagnostic findings with the patient and they have had an opportunity to ask me any questions they have about care, diagnosis, and reason for admission. The patientstates understanding and agrees to admission. Jinny Metcalf MD PGY-3, Family Medicine Associated attestation - Adolph Mckinney MD - 06/27/2022 7:01 AM CDT 06/27/2022 07:00 For this patient encounter, I reviewed the resident documentation, treatment plan, and medical decision making; and I had obku-yg-hqdr time with this patient. I have conducted an independent evaluation of this patient including a focused history and a physical exam which are in concordance with the resident documentation except as otherwise noted. * Sherlyn Black RN - 06/20/2022 1:47 PM CDT Bed: AC18 Expected date: Expected time: Means of arrival: Comments: Douglas * Darlene Maurice - 06/20/2022 12:37 PM CDT Patient called for vitals with no response from waiting room. Call x1 * Sima Kaufman PA-C - 06/20/2022 9:14 AM CDT Medical Screening Exam 06/20/2022 9:15 AM Provider contact with the patient Kandace Cole CC: VOMITING BLOOD (Pt arrived via private vehicle. Pt states she was encouraged to come here from her clinic appointment today d/t dark red emesis. Pt states she is having increased dizziness with movement and nausea. Pt states she is chilling. ) Chief complaint narrative was entered by triage nurse, not by provider Provider in Triage HPI: Kandace Cole is a 72 year old female PMH DM, chary's esophagus, CKD, RLSwho presents to the ED with N/V since yesterday. Was here for clinic appointment and had dark red emesis, so was instructed to come here. Recent C5-C6 laminectomy, ??C4-T2 posterior instrumented spinal fusion with Orthopedic Surgery ON 06/04. Endorses chills, weakness and dizziness. Denies chest pain, SOB. Limited Chart History: Past Medical History: Diagnosis Date ??? Anemia ??? Heredia's esophagus ??? CKD (chronic kidney disease), stage III (CMS/HCC) ??? Diabetes ??? Disease of esophagus ??? Fibromyalgia ??? Glaucoma ??? HTN (hypertension) ??? Macular degeneration ??? Osteoarthritis ??? Raynaud disease ??? Sleep apnea ??? Ulnar neuropathy Past Surgical History: Procedure Laterality Date ??? Back Surgery lumbar and sacral laminectomy ??? CARPAL TUNNEL SURGERY Bilateral ??? Cervical Fusion N/A 06/04/2022 N/A; C5-C6 laminectomy, C4-T2 posterior instrumented spinal fusion ??? Cervical Laminectomy ??? Hysterectomy ??? NASAL POLYPECTOMY ??? Rotator Cuff Repair Bilateral ??? ULNAR NERVE TRANSPOSITION Left No current facility-administered medications for this encounter. Current Outpatient Medications Medication Sig Dispense Refill ??? acetaminophen (Tylenol) [...] tablet by mouth 2 times daily ??? carvedilol (Coreg) 6.25 MG tablet Take 1 (one) tablet by mouth 2 times daily ??? escitalopram (Lexapro) 20 MG tablet Take 1 (one) tablet by mouth once daily ??? gabapentin (Neurontin) 300 MG capsule Take 1 (one) capsule by mouth 3 times daily 30 capsule 3 ??? latanoprost (Xalatan) 0.005 % ophthalmic solution [...] TABLET BY MOUTH DAILY ??? QUEtiapine (SEROquel) 100 MG tablet Take 1 (one) tablet by mouth every evening ??? saline nasal spray ([place]; Baby [place]) 0.65 % nasal spray [place] 1 (one) spray into each nostril as needed for Dry Nose 15 mL 0 ??? vitamin D3 (Cholecalciferol) 10 MCG (400 UNIT) tablet Take 2 (two) tablets by mouth once daily Allergies Allergen Reactions ??? Latex ??? Cyclobenzaprine ??? Fluoxetine ??? Naproxen ??? Sulfamethoxazole W-Trimethoprim ??? Eggs ??? Other demeral ??? Urecholine [Bethanechol Chloride] PCP: Karrie Phillips MD, MD (Above may be pending completion) Review of Systems: Primary System Noted in HPI. Constitutional: No fevers or chills Psychiatric: No mood changes All other systems reviewed and are negative. Vital Signs reviewed in Triage BP 153/56 Pulse 90 Temp 98.9 ??F (37.2 ??C) (Temporal) Resp 18 Ht 1.549 m (5' 1 ) Wt 61.2kg (135 lb) SpO2 100% Pertinent Physical Findings: Constitutional: vitals as above, WDWN Head: Head normocephalic, atraumatic Eyes: conjunctiva clear ENT: no rhinorrhea Neck: neck supple, no nuchal rigidity Resp: respirations even and unlabored, lungs clear bilaterally CV: Heart RRR Abd: nondistended Skin: warm, dry MSK: moves all extremities Neuro: A&O x 3, CN 2-12 grossly intact bilat Psych: Normal affect Complete physical exam is limited due to patient sitting in up right position in chair MDM: I have reviewed all lab and imaging resulted ordered during this visit and available at the time ofthis note. Triage notes and available nursing notes reviewed. Previous medical record reviewed whenavailable. Management options include but not limited to: physical exam, laboratory testing, discussion with other providers. PLAN Diagnostic tests ordered: No orders of the defined types were placed in this encounter. MEDICATIONS FOR CURRENT ENCOUNTER: ?? SCHEDULED MEDICATIONS: ?? No current facility-administered medications for this encounter. ?? CONTINUOUS MEDICATIONS: ?? No current facility-administered medications for this encounter. ?? PRN MEDICATIONS: ?? No current facility-administered medications for this encounter. Clinical Impression: 1.Vomiting Based on the Medical Screening Exam performed and diagnostic tests at this time, further evaluationis indicated and will be performed. Patient will be transferred to a main ED room when one is available and care will be transferred to ER provider. SIMA KAUFMAN PA-C * Jaycee Rodgers RN - 06/20/2022 9:09 AM CDT Pt arrived via private vehicle. Pt states she was encouraged to come here from her clinic appointment today d/t dark red emesis. Pt states she is having increased dizziness with movement and nausea. Pt states she is chilling. documented in this encounter Plan of Treatment Upcoming Encounters Date Type Department Care Team (Late st Contact Info) Description 06/02/2024 1:45 PM CHERRY DIPPER Office Visit [facility] - Orthopedics [address] [place] [address], [facility] [place] [address] Deon Taylor MD [address] [place] [id number] Scheduled Orders Name Type Priority Associated Diagnoses Orde r Schedule SMALL BOWEL CAPSULE ENDOSCOPY GI Routine ONCE for 1 Occur rences starting 06/21/2022 until 06/21/2022 documented as of this encounter Procedures Procedure Name Priority Date/Time Associated Diagnosis Comments CBC W/O DIFFERENTIAL Routine 06/23/2022 3:47 AM CDT Coffee ground emesis BASIC METABOLIC PANEL (CALCIUM TOTAL) AM Draw 06/23/2022 3:06 AM CDT Coffee ground emesis MAGNESIUM BLOOD AM Draw 06/23/2022 3:06 AM CDT Coffee ground emesis GLUCOSE - POINT OF CARE Routine 06/22/2022 4:11 PM CDT GLUCOSE - POINT OF CARE Routine 06/22/2022 11:18 AM CDT OT EVAL AND TREAT Routine 06/22/2022 8:2 1 AM CDT PT EVAL AND TREAT Routine 06/22/2022 8:2 1 AM CDT CBC W/O DIFFERENTIAL Routine 06/22/2022 2:34 AM CDT Coffee ground emesis RENAL FUNCTION PANEL AM Draw 06/22/2022 2:34 AM CDT Dizziness MAGNESIUM BLOOD Routine 06/22/2022 2:34 AM CDT Dizziness CORTISOL BLOOD AM Routine 06/22/2022 2:3 4 AM CDT Dizziness GLUCOSE - POINT OF CARE Routine 06/21/2022 5:10 PM CDT PATHOLOGY TISSUE Routine 06/21/2022 4:40 PM CDT Coffee ground emesis NV ESOPHAGEAL CAPSULE ENDOSCOPY 06/21/2022 4:37 PM CDT Coffee ground emesis NV ED EGD FLEX TRANSORAL DX 06/21/2022 4:37 PM CDT Coffee ground emesis EGD Routine 06/21/2022 4:24 PM CDT CARDIAC EKG ORDER 06/21/2022 3:2 9 PM CDT GLUCOSE - POINT OF CARE Routine 06/21/2022 2:59 PM CDT GLUCOSE - POINT OF CARE Routine 06/21/2022 2:00 PM CDT CBC W AUTO DIFFERENTIAL AM Draw 06/21/2022 2:03 AM CDT Anemia, unspecified type COMPREHENSIVE METABOLIC PANEL AM Draw 06/21/2022 2:03 AM CDT Dizziness URINALYSIS REFLEX TO MICROSCOPIC NO CULTURE STAT 06/21/2022 12:50 AM CDT HEMOGLOBIN Timed 06/20/2022 10:18 PM CDT Anemia, unspecified type B-TYPE NATRIURETIC PEPTIDE STAT 06/20/2022 10:[address] ANGIO ABDOMEN PELVIS STAT 06/20/2022 5:05 PM CDT Abdominal pain, left upper quadrant XR CERVICAL SPINE 2 OR 3VW STAT 06/20/2022 3:12 PM CDT Dizziness Shortness of breath XR CHEST 2VW STAT 06/20/2022 3:02 PM CDT Shortness of breath PT-INR [facility] STAT 06/20/2022 2:05 PM CDT TYPE + SCREEN PANEL STAT 06/20/2022 2 :05 PM CDT CBC W/O DIFFERENTIAL STAT 06/20/2022 2:05 PM CDT LIPASE BLOOD STAT 06/20/2022 2:05 PM CDT LACTIC ACID BLOOD STAT 06/20/2022 2:0 5 PM CDT TROPONIN-I HIGH SENSITIVE REFLEX 1HOUR Timed 06/20/2022 1:05 PM CDT TROPONIN-I HIGH SENSITIVE BASELINE + 1HR STAT 06/20/2022 9:49 AM CDT CBC W AUTO DIFFERENTIAL STAT 06/20/2022 9:49 AM CDT COMPREHENSIVE METABOLIC PANEL STAT 06/20/2022 9:49 AM CDT EKG 12-LEAD STAT 06/20/2022 9:40 AM CDT Dizziness documented in this encounter Results * (ABNORMAL) CBC W/O DIFFERENTIAL (06/23/2022 3:47 AM CDT) [facility] WBC 7.7 3.5 - 10.5 10? 3 /uL 06/23/2022 4:17 AM [facility] RBC 2.66(L) 3.80 - 5.20 10? 6 /uL 06/23/2022 4:17 AM [facility] Hemoglobin 8.0(L) 12.0 - 15.6 g/dL 06/23/2022 [...] 0.0 0 /100 WBC 06/23/2022 4:17 AM CDT [facility] Blood BLOOD SPECIMEN / Unknown Lab Venipuncture / Unknown 06/23/2022 3:47 AM CDT 06/23/2022 4:10 AM CDT Ori Iyer PA-C LAB - HEMATOLOGY OR DERABLES Performing Organization Address City/[facility]/ZIP Co de Phone Number [address] [address], [facility] [phone] * MAGNESIUM BLOOD (06/23/2022 3:06 AM CDT) Magnesium 2.3 1.6 - 2.6 mg/dL 06/23/2022 4:41 AM CDT [facility] Blood BLOOD SPECIMEN / Unknown Lab Venipuncture / Unknown 06/23/2022 3:06 AM CDT 06/23/2022 4:03 AM CDT Anabell Hernandez PA-C LAB - CHEMISTRY ORD ERABLES Performing Organization Address City/[facility]/ZIP Co de Phone Number [address] [address], [facility] [phone] * (ABNORMAL) BASIC METABOLIC PANEL (CALCIUM TOTAL) (06/23/2022 3:06 AM CDT) BUN 10 7 - 26 mg/dL 06/23/2022 4:38 AM CDT [facility] Creatinine 1.09(H) 0.56 - 0.96 mg/dL 06/23/2022 4:38 AM T [facility] Sodium 131(L) 136 - 145 mmol/L 06/23/2022 4:38 AM T [facility] Potassium 4.2 3.5 - 4.5 mmol/L 06/23/2022 4:38 AM [facility] Chloride 100 98 - 107 mmol/L 06/23/2022 4:38 AM T [facility] CO2 22 22 - 29 mmol/L 06/23/2022 [...] Hernandez PA-C LAB - CHEMISTRY ORD ERABLES [address] [address], [place] [phone] * GLUCOSE - POINT OF CARE (06/22/2022 4:11 PM CDT) Glucose WB/POC 105 70 - 115 mg/dL 06/22/2022 4:12 PM T [facility] Specimen Type Arterial 06/22/2022 4:12 PM T [facility] Blood BLOOD SPECIMEN / Unknown 06/22/2022 4:11 PM CDT 06/22/2022 4:12 PM CDT Abeba Will DO LAB - POINT OF CARE ORDERABLES [address] [address], [place] [phone] * (ABNORMAL) GLUCOSE - POINT OF CARE (06/22/2022 11:18 AM CDT) Glucose WB/POC 180(H) 70 - 115 mg/dL 06/22/2022 11:19 AM [facility] Specimen Type Cap Fingerstick 2022 11:19 AM [facility] Blood BLOOD SPECIMEN / Unknown 06/22/2022 11:18 AM CDT 06/22/2022 11:19 AM CDT Abeba Will DO LAB - POINT OF CARE ORDERABLES Performing Organization Address City/State/[facility] Co de Phone Number [facility] [address] [place] [address], [facility] [phone] * (ABNORMAL) CBC W/O DIFFERENTIAL (06/22/2022 2:34 AM CDT) WBC 9.1 3.5 - 10.5 10? 3 /uL 06/22/2022 3:11 AM [facility] RBC 2.70(L) 3.80 - 5.20 10? 6 /uL 06/22/2022 3:11 AM [facility] Hemoglobin 8.0(L) 12.0 - 15.6 g/dL 06/22/2022 3:11 AM [facility] Hematocrit 24.2(L) 35.0 - 45.0 % 06/22/2022 3:11 AM [facility] MCV 89.6 80.7 - 98.3 fL 06/22/2022 3:11 AM [facility] MCH 29.6 26.7 - 34.0 pg 06/22/2022 3:11 AM [facility] MCHC 33.1 30.8 - 35.9 g/dL 06/22/2022 3:11 AM [facility] RDW-SD 44.2 36.0 - 50.0 fL 06/22/2022 3:11 AM [facility] RDW-CV 13.5 11.2 - 14.8 % 06/22/2022 3:11 AM [facility] Platelet Count 358 150 - 400 10? 3 /uL 06/22/2022 3:11 AM [facility] MPV 9.2(L) 9.4 - 12.9 fL 06/22/2022 3:11 AM CDT [facility] nRBC Absolute 0.00 0 10? 3 /uL 06/22/2022 3:11 AM CDT [facility] nRBC Auto 0.0 0 /100 WBC 06/22/2022 3:11 AM CDT [facility] Blood BLOOD SPECIMEN / Unknown Lab Venipuncture / Unknown 06/22/2022 2:34 AM CDT 06/22/2022 3:01 AM CDT Ori Iyer PA-C LAB - HEMATOLOGY OR DERABLES [address] [address], [facility] [phone] * (ABNORMAL) MAGNESIUM BLOOD (06/22/2022 2:34 AM CDT) Magnesium 1.5(L) 1.6 - 2.6 mg/dL 06/22/2022 3:29 AM CDT [facility] Blood BLOOD SPECIMEN / Unknown Lab Venipuncture / Unknown 06/22/2022 2:34 AM CDT 06/22/2022 3:02 AM CDT Ori Iyer PA-C LAB - CHEMISTRY ORD ERABLES Performing Organization Address City/[facility]/ZIP Co de Phone Number [address] [address], [place] [phone] * (ABNORMAL) RENAL FUNCTION PANEL (06/22/2022 2:34 AM CDT) BUN 13 7 - 26 mg/dL 06/22/2022 3:29 AM CDT [facility] Creatinine 1.07(H) 0.56 - 0.96 mg/dL 06/22/2022 3:29 AM CDT [facility] Sodium 132(L) 136 - 145 mmol/L 06/22/2022 3:29 AM CDT [facility] Potassium 3.8 3.5 - 4.5 mmol/L 06/22/2022 3:29 AM [facility] Chloride 99 98 - 107 mmol/L 06/22/2022 3:29 AM [facility] CO2 25 22 - 29 mmol/L 06/22/2022 3:29 AM [facility] Glucose 126(H) 70 - 115 mg/dL 06/22/2022 3:29 AM [facility] Albumin 2.8(L) 3.4 - 5.0 g/dL 06/22/2022 [...] Iyer PA-C LAB - CHEMISTRY ORD ERABLES Performing Organization Address City/State/[facility] Co de Phone Number [facility] [address] [place] [address], [facility] [phone] * CORTISOL BLOOD AM (06/22/2022 2:34 AM CDT) Cortisol AM 14.3 3.7 - 19.4 ug/dL 06/22/2022 3:49 AM [facility] Blood BLOOD SPECIMEN / Unknown Lab Venipuncture / Unknown 06/22/2022 2:34 AM CDT 06/22/2022 3:02 AM CDT Narrative [facility] - 06/22/2022 3:49 AM CDT Normal cortisol levels are generally highest in the morning hours and lowest from late evening through the geotechnical engineer 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 ??The PM measurements of cortisol run approximately one-half to one-third of the AM values. Ori Iyer PA-C LAB - CHEMISTRY ORD ERABLES Performing Organization Address [facility] Co de Phone Number [facility] [address] [place] [address], [place] [phone] * GLUCOSE - POINT OF CARE (06/21/2022 5:10 PM CDT) Glucose WB/POC 103 70 - 115 mg/dL 06/21/2022 5:14 PM CDT [facility] Specimen Type Cap Fingerstick 2022 5:14 PM CDT [facility] Blood BLOOD SPECIMEN / Unknown 06/21/2022 5:10 PM CDT 06/21/2022 5:14 PM CDT Abeba Will DO LAB - POINT OF CARE ORDERABLES Performing Organization Address [facility] Co de Phone Number [facility] [address] [place] [address], [place] [phone] * PATHOLOGY TISSUE (06/21/2022 4:40 PM CDT) Case Report Surgical Pathology Report ? Case: [id number] ? Authorizing Provider: ??Carmen Morales MD ? Collected: ? 06/21/2022 04:40 PM ? Ordering Location: ? [facility] ?Received: ?06/22/2022 08:59 AM ? Pathologist: ? Hansa Gusman MD ? Specimen: ?Small Bowel, small bowel biopsy r/o celiac ? 06/25/2022 2:27 PM [facility] Final Diagnosis Small intestine, small bowel, biopsy (A): - No histopathologic abnormality - Intact villous and crypt architecture without increased intraepithelial lymphocytes 06/25/2022 2:27 PM [facility] Microscopic Description and Comment Microscopic examination substantiates the final diagnosis. 06/25/2022 2:27 PM [facility] Clinical History The patient is a 72-year-old woman presented with coffee-ground emesis who underwent upper GI endoscopy. 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 Duodenal bulb erythema, biopsied for evaluation of celiac disease. 06/25/2022 2:27 PM [facility] Gross Description The requisition and specimen(s) are identified with the patient's name Kandace Cole. Received in formalin, specimen A , are 5 pink-freeman tissues, 0.3-0.9 cm in greatest dimension and 2.3 x 0.3 x 0.2 cm in aggregate, submitted in toto in cassette A1. DF 06/25/2022 2:27 PM [facility] Disclaimer The performance characteristics of all immunohistochemical and indirect immunofluorescence stains (if any) cited in this report were determined by the Histopathology Laboratory of [facility]. Some of these tests were developed by [...] attending (teaching) pathologist. 06/25/2022 2:27 PM CDT [facility] Embedded Images 06/25/2022 2:27 PM CDT [facility] Resection without Tumor SMALL BOWEL RESECTION SPECIMEN / Unknown 06/21/2022 4:40 PM CDT 06/22/2022 8:59 AM CDT Comment:Pre-op diagnosis: Coffee ground emesis Carmen Morales MD LAB - PATHOLOGY/CYTO LOGY ORDERABLES [facility] [address] [facility] [place] [address], [facility] [phone] * EGD (06/21/2022 4:24 PM CDT) Report [...] mucosal changes secondary to established ? long-segment Heredia's disease present in the lower third of [...] Esophageal mucosal changes secondary to ?established long-segment Heredia's disease. ?- Normal stomach. ?- Duondeal bulb [...] Procedure Code(s): ? --- Professional --- ? 68853, Esophagogastroduode noscopy, flexible, transoral; with biopsy, ? single or multiple Diagnosis Code(s): ?--- Professional --- ?K22.70, Heredia's esophagus without dysplasia ?K92.0, Hematemesis CPT copyright 2019 [employer]. All rights reserved. The codes documented in this report are preliminary and upon transonic engineer review may be revised to meet current compliance requirements. Carmen Morales, 06/21/2022 5:01:11 PM Note Initiated On: 06/21/2022 4:24 PM Number of Addenda: 0 ? [facility] ? [address] [place] [address] [facility] 06/21/2022 4:24 PM CDT Abeba Will DO GI PROCEDURE ORDERAB LES Performing Organization Address City/[facility]/ZIP Co de Phone Number [facility] * CARDIAC EKG ORDER (06/21/2022 3:29 PM CDT) Narrative 06/21/2022 3:29 PM CDT Ordered by an unspecified provider. Scanned Document CARDIAC SERVICES ORD ERABLES * (ABNORMAL) GLUCOSE - POINT OF CARE (06/21/2022 2:59 PM CDT) Glucose WB/POC 143(H) 70 - 115 mg/dL 06/21/2022 3:04 PM CDT [facility] Specimen Type Cap Fingerstick 2022 3:04 PM CDT [facility] Blood BLOOD SPECIMEN / Unknown 06/21/2022 2:59 PM CDT 06/21/2022 3:04 PM CDT Abeba Will DO LAB - POINT OF CARE ORDERABLES Performing Organization Address [facility] Co de Phone Number [facility] [address] [place] [address], [facility] [phone] * (ABNORMAL) GLUCOSE - POINT OF CARE (06/21/2022 2:00 PM CDT) Pathologist [facility] Glucose WB/POC 47(LL) 70 - 115 mg/dL 06/21/2022 2:04 PM T [facility] Specimen Type Cap Fingerstick 2022 2:04 PM T [facility] Blood BLOOD SPECIMEN / Unknown 06/21/2022 2:00 PM CDT 06/21/2022 2:04 PM CDT Abeba Will DO LAB - POINT OF CARE ORDERABLES [facility] [address] [place] [address], [facility] [phone] * (ABNORMAL) CBC W AUTO DIFFERENTIAL (06/21/2022 2:03 AM CDT) [facility] WBC 8.0 3.5 - 10.5 10? 3 [...] AM CDT Deepa Georges MD LAB - HEMATOLOGY ORD ERABLES [facility] [address] [place] [address], [facility] [phone] * (ABNORMAL) COMPREHENSIVE METABOLIC PANEL (06/21/2022 2:03 AM CDT) BUN 14 7 - 26 mg/dL 06/21/2022 [...] 06/21/2022 2:03 AM CDT 06/21/2022 2:39 AM [facility] Deepa Georges MD LAB - CHEMISTRY [place]LO QUIG[place] Organization Address City/State/ZIP Co de Phone Number [address] [address], [facility] [phone] * (ABNORMAL) URINALYSIS REFLEX TO MICROSCOPIC NO CULTURE (06/21/2022 12:50 AM [facility]) Color UA Yellow Straw, Yellow 06/21/2022 1:04 AM [facility] Clarity UA Clear Clear 06/21/2022 1:04 AM [facility] Specific Kamrar UA 1.048(H) 1.005 - 1.030 06/21/2022 1:04 [...] Leukocyte Esterase Trace(A) Negative 06/21/2022 1:04 AM CDT [facility] Urobilinogen UA Negative Negative mg/dL 06/21/2022 1:04 AM CDT [facility] RBC UA 0-2 None Seen, 0-2, 3-5 /HPF 06/21/2022 1:04 AM CDT [facility] WBC UA 0-5 None Seen, 0-5 /HPF 06/21/2022 1:04 AM CDT [facility] Squamous Epithelial Cells UA 0-2 None Seen, 0-2, 3-5 /HPF 06/21/2022 1:04 AM CDT [facility] Urine URINE SPECIMEN OBTAINED BY CLEAN CATCH PROCEDURE / Unknown Collection / Unknown 06/21/2022 12:50 AM CDT 06/21/2022 12:57 AM CDT Narrative [facility] - 06/21/2022 1:04 AM CDT Sima Kaufman PA-C LAB - URINALYSIS OR DERABLES [address] [address], [place] [phone] * (ABNORMAL) HEMOGLOBIN (06/20/2022 10:18 PM CDT) Pathologist [facility] Hemoglobin 8.5(L) 12.0 - 15.6 g/dL 06/20/2022 10:42 PM CDT [facility] Blood BLOOD SPECIMEN / Unknown Lab Venipuncture / Unknown 06/20/2022 10:18 PM CDT 06/20/2022 10:39 PM CDT Deepa Georges MD LAB - HEMATOLOGY ORD ERABLES [address] [address], [place] [phone] * B-TYPE NATRIURETIC PEPTIDE (06/20/2022 10:18 PM CDT) Pathologist [facility] BNP 99 <100 pg/mL 06/20/2022 11:17 [facility] Comment: A decision threshold of 100 [...] Georges MD LAB - CHEMISTRY CHELO QUIGLEY [facility] [address] [place] [address], [facility] [phone] * CT ANGIO ABDOMEN PELVIS (06/20/2022 5:05 [...] etiology. > Dictated by Sherlyn Hopkins DO (md do resident urgent care). IChaim have personally reviewed and interpreted this examination/study. > Interpreting Provider: Chaim Martins on 06/20/2022 10:47 PM Narrative 06/20/2022 10:47 PM CDT PROCEDURE: ??CT ANGIO ABDOMEN PELVIS, DATE/TIME OF EXAM: ??06/20/2022 5:05 PM, LOCATION ??[facility] INDICATION: R10.12: Abdominal pain, left upper quadrant [...] PELVIS, DATE/TIME OF EXAM: 06/20/2022 5:05PM, LOCATION [facility] INDICATION: R10.12: Abdominal pain, left upper quadrant [...] etiology. > Dictated by Sherlyn Hopkins DO (md do resident urgent care). I, Chaim Martins have personally reviewed and interpreted this examination/study. > Interpreting Provider: Chaim Martins on 06/20/2022 10:47 PM Adolph Mckinney MD CT ORDERABLES * XR CERVICAL SPINE 2 OR 3VW (06/20/2022 3:12 PM CDT) Anatomical Region Laterality Modality Spine Radiographic Vivian ging 06/20/2022 3:16 PM CDT Impressions 06/20/2022 4:25 PM CDT IMPRESSION: Unchanged appearance of posterior spinal fusion. Stable appearance of severe degenerative changes in the mid to lower cervical spine. Report dictated by Yasir Pierre MD (md do resident urgent care). I, Kamila Barber MD have personally reviewed and interpreted this examination/study. > Interpreting Provider: Kamila Barber MD on 06/20/2022 4:25 PM Narrative 06/20/2022 4:25 PM CDT PROCEDURE: ??XR CERVICAL SPINE 2 OR 3VW, DATE/TIME OF EXAM: ??06/20/2022 3:13 PM, LOCATION ??[facility] INDICATION: R42: Dizziness R06.02: Shortness of breath ADDITIONAL CLINICAL INFORMATION: Ordering Provider Reason For Exam: ??s/p PISF COMPARISON: X-ray of the cervical spine 06/05/2022, CT of the cervical spine 02/15/2022 FINDINGS: Redemonstration of posterior spinal fusion extending from C4 to T2 with overlying skin luba. Hardware appears unchanged from prior examination and intact. Slight anterolisthesis of C3 on C4 is unchanged. Severe degenerative changes of the cervical spine extending from C3 to the distal cervical spine. 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 Disc spaces are seen at the C4-C5 and C5-C6. The predental interval and prevertebral soft tissues are normal. The bones are diffusely demineralized. Procedure Note Kamila Barber MD - 06/20/2022 PROCEDURE: XR CERVICAL SPINE 2 OR 3VW, DATE/TIME OF EXAM: 33:13 PM, LOCATION [facility] INDICATION: R42: Dizziness R06.02: Shortness of breath ADDITIONAL CLINICAL INFORMATION: Ordering Provider Reason For Exam: s/p PISF COMPARISON: X-ray of the cervical spine 06/05/2022, CT of the cervical spine02/15/2022 FINDINGS: Redemonstration of posterior spinal fusion extending from C4 to T2 with overlying skin luba. Hardware appears unchanged from priorexamination and intact. Slight anterolisthesis of C3 on C4 is unchanged. Severe degenerative changes of the cervical spine extending from C3 tothe distal cervical spine. There is ankylosis of multiple vertebral bodieswith severe osteophytic changes at C5-C6. Disc spaces are seen at the C4-C5and C5-C6. The predental interval and prevertebral soft tissues are normal. Thebones are diffusely demineralized. IMPRESSION: Unchanged appearance of posterior spinal fusion. Stable appearance of severe degenerative changes in the mid to lower cervical spine. Report dictated by Yasir Pierre MD (md do resident urgent care). Kamila Narvaez MD have personally reviewed and interpreted this examination/study. > Interpreting Provider: Kamila Barber MD on 06/20/2022 4:25 PM Adolph Mckinney MD DIAGNOSTIC IMAGING ORDERABLES * XR CHEST 2VW (06/20/2022 3:02 PM CDT) Anatomical Region Laterality Modality Chest Radiographic Vivian ging 06/20/2022 3:13 PM CDT Narrative 06/20/2022 3:49 PM CDT PROCEDURE: ??XR CHEST 2VW, DATE/TIME OF EXAM: ??06/20/2022 3:03 PM, LOCATION [facility] INDICATION: R06.02: Shortness of breath ADDITIONAL CLINICAL [...] heads. Report dictated by Yasir Pierre MD (md do resident urgent care). Haroldo Narvaez MD have personally reviewed and interpreted this examination/study. > Interpreting Provider: Haroldo Ball MD on 06/20/2022 3:49 PM Procedure Note Haroldo Ball MD - 06/20/2022 PROCEDURE: XR CHEST 2VW, DATE/TIME OF EXAM: 06/20/2022 3:03 PM, LOCATION [facility] INDICATION: R06.02: Shortness of breath ADDITIONAL CLINICAL [...] heads. Report dictated by Yasir Pierre MD (md do resident urgent care). I, Haroldo Ball MD have personally reviewed and interpreted this examination/study. > Interpreting Provider: Haroldo Ball MD on 06/20/2022 3:49 PM Adolph Mckinney MD DIAGNOSTIC IMAGING ORDERABLES * TYPE + SCREEN PANEL (06/20/2022 2:05 PM CDT) Pathologist [facility] Antibody Screen NEG 2:53 PM CDT [facility] BLOOD BANK LAB ABO Rh A POS 06/20/2022 2:53 PM CDT [facility] BLOOD BANK LAB Blood Bank BLOOD SPECIMEN / Unknown Venipuncture / Unknown 06/20/2022 2:05 PM CDT 06/20/2022 2:08 PM CDT Adolph Mckinney MD LAB - BLOOD BANK O RDERABLES [facility] BLOOD BANK LAB [address] [place] [id number], [facility] [phone] * LACTIC ACID BLOOD (06/20/2022 2:05 PM CDT) [facility] Lactic Acid-Stat 1.1 <=2.0 mmol/L 06/20/2022 2:48 PM CDT [facility] HOSPITAL Blood BLOOD SPECIMEN / Unknown Venipuncture / Unknown 06/20/2022 2:05 PM CDT 06/20/2022 2:23 PM CDT Adolph Mckinney MD LAB - CHEMISTRY OR DERABLES Performing Organization Address City/[facility]/ZIP Co de Phone Number [facility]ORATORY [address] [address], [place] [phone] * LIPASE BLOOD (06/20/2022 2:05 PM CDT) [facility] Lipase 18 8 - 78 U/L 06/20/2022 2:50 PM CDT [facility] Blood BLOOD SPECIMEN / Unknown Venipuncture / Unknown 06/20/2022 2:05 PM CDT 06/20/2022 2:23 PM CDT Narrative [facility] - 06/20/2022 2:50 PM CDT Lipase results from the [employer] Alinity analyzer may not be comparable with other methodologies. Adolph Mckinney MD LAB - CHEMISTRY OR DERABLES [facility] [address] [place] [address], [facility] [phone] * PT-INR [facility] (06/20/2022 2:05 PM CDT) [facility] PT 13.4 12.1 - 14.8 Seconds 06/20/2022 2:48 PM CDT [facility] INR 1.0 See Comment 06/20/2022 2:48 PM CDT [facility] Comment:The suggested therap eutic range for standard coumadin (warfarin) therapy is an INR of 2.0-3.0. For high-risk patients (Mechanical Mitral Valve Prosthesis, etc.), the suggested prophylactic therapeutic range is an INR of 2.5-3.5. Blood BLOOD SPECIMEN / Unknown Venipuncture / Unknown 06/20/2022 2:05 PM CDT 06/20/2022 2:07 PM CDT Adolph Mckinney MD LAB - COAGULATION ORDERABLES [facility] [address] [place] [address], [facility] [phone] * (ABNORMAL) CBC W/O DIFFERENTIAL (06/20/2022 2:05 PM CDT) [facility] WBC 9.5 3.5 - 10.5 10? 3 /uL 06/20/2022 2:27 PM CDT [facility] RBC 3.07(L) 3.80 - 5.20 10? 6 /uL 06/20/2022 2:27 PM [facility] Hemoglobin 9.3(L) 12.0 - 15.6 g/dL 06/20/2022 2:27 PM [facility] Hematocrit 27.6(L) 35.0 - 45.0 % 06/20/2022 2:27 PM [facility] MCV 89.9 80.7 - 98.3 fL 06/20/2022 2:27 PM [facility] MCH 30.3 26.7 - 34.0 pg 06/20/2022 2:27 PM T [facility] MCHC 33.7 30.8 - 35.9 g/dL 06/20/2022 2:27 PM [facility] RDW-SD 45.2 36.0 - 50.0 fL 06/20/2022 2:27 PM [facility] RDW-CV 14.0 11.2 - 14.8 % 06/20/2022 2:27 PM [facility] Platelet Count 463(H) 150 - 400 10? 3 /uL 06/20/2022 2:27 PM [facility] MPV 9.2(L) 9.4 - 12.9 fL 06/20/2022 2:27 PM [facility] nRBC Absolute 0.00 0 10? 3 /uL 06/20/2022 2:27 PM [facility] nRBC Auto 0.0 0 /100 WBC 06/20/2022 2:27 PM [facility] Blood BLOOD SPECIMEN / Unknown Venipuncture / Unknown 06/20/2022 2:05 PM CDT 06/20/2022 2:22 PM CDT Adolph Mckinney MD LAB - HEMATOLOGY O RDERABLES [facility] [address] [place] [id number], [facility] [phone] * TROPONIN-I HIGH SENSITIVE REFLEX 1HOUR (06/20/2022 1:05 PM CDT) Troponin I High Sensitive 8 <=14 ng/L 06/20/2022 1:59 PM CDT [facility] Delta Troponin I HS 06/20/2022 1:59 PM CDT [facility] Comment:Delta value intentio anil not calculated. Baseline to 1 hour specimen collection interval exceeded. Blood BLOOD SPECIMEN / Unknown Venipuncture / Unknown 06/20/2022 1:05 PM CDT 06/20/2022 1:23 PM CDT Sima Kaufman PA-C LAB - CHEMISTRY ORD ERABLES Performing Organization Address [facility]/ZIP Co de Phone Number [address] [address], [place] [phone] * TROPONIN-I HIGH SENSITIVE BASELINE + 1HR (06/20/2022 9:49 AM CDT) Pathologist [facility] Troponin I High Sensitive 7 <=14 ng/L 06/20/2022 10:39 AM CDT [facility] Blood BLOOD SPECIMEN / Unknown Venipuncture / Unknown 06/20/2022 9:49 AM CDT 06/20/2022 9:55 AM CDT Sima Kaufman PA-C LAB - CHEMISTRY ORD ERABLES Performing Organization Address City/[facility]/ZIP Co de Phone Number [address] [address], [place] [phone] * (ABNORMAL) COMPREHENSIVE METABOLIC PANEL (06/20/2022 9:49 AM CDT) BUN 14 7 - 26 mg/dL 06/20/2022 10:32 AM CDT [facility] Creatinine 1.02(H) 0.56 - 0.96 mg/dL 06/20/2022 10:32 AM CDT [facility]OR[facility] Sodium 128(L) 136 - 145 mmol/L 06/20/2022 10:32 AM CDT [facility] Potassium 4.3 3.5 - 4.5 mmol/L 06/20/2022 10:32 AM T [facility] Chloride 93(L) 98 - 107 mmol/L 06/20/2022 10:32 AM [facility] CO2 26 22 - 29 mmol/L 06/20/2022 10:32 AM [facility] Glucose 91 70 - 115 mg/dL 06/20/2022 10:32 AM [facility] Calcium 9.8 8.4 - 10.2 mg/dL 06/20/2022 10:32 AM [facility] Protein Total 6.5 6.0 - 8.3 g/dL 06/20/2022 10:32 AM [facility] Albumin 3.5 3.4 - 5.0 g/dL 06/20/2022 10:32 AM [facility] Bilirubin Total 0.6 0.2 - 1.2 mg/dL 06/20/2022 10:32 AM [facility] Alkaline Phosphatase 66 40 - 150 U/L 06/20/2022 10:32 AM [facility] ALT 10 5 - 55 U/L 06/20/2022 10:32 AM [facility] AST 16 5 - 34 U/L 06/20/2022 10:32 AM [facility] Anion Gap 13 8 - 18 06/20/2022 10:32 AM [facility] BUN/Creatinine Ratio 14 7 - 23 06/20/2022 10:32 AM [facility] Osmolality Calculated 266(L) 270 - 300 mOsm/kg 06/20/2022 10:32 AM [facility] Albumin/Globulin Ratio 1.2 1.1 - 2.3 06/20/2022 10:32 AM [facility] eGFR by CKD-EPI 58(L) >=90 mL/min/1.7 3 m2 06/20/2022 10:32 AM [facility] Blood BLOOD SPECIMEN / Unknown Venipuncture / Unknown 06/20/2022 9:49 AM T 06/20/2022 9:55 AM [facility] Sima Kaufman PA-C LAB - CHEMISTRY ORD ERABLES [facility] [address] [place] [address] [phone] * (ABNORMAL) CBC W AUTO DIFFERENTIAL (06/20/2022 9:49 AM CDT) WBC 11.8(H) 3.5 - 10.5 10? 3 /uL 06/20/2022 9:58 AM [facility] RBC 3.02(L) 3.80 - 5.20 10? 6 /uL 06/20/2022 9:58 AM [facility] Hemoglobin 9.0(L) 12.0 - 15.6 g/dL 06/20/2022 9:58 AM [facility] Hematocrit 27.7(L) 35.0 - 45.0 % 06/20/2022 9:58 AM [facility] MCV 91.7 80.7 - 98.3 fL 06/20/2022 9:58 AM [facility] MCH 29.8 26.7 - 34.0 pg 06/20/2022 9:58 AM [facility] MCHC 32.5 30.8 - 35.9 g/dL 06/20/2022 9:58 AM [facility] RDW-SD 45.6 36.0 - 50.0 fL 06/20/2022 9:58 AM [facility] RDW-CV 13.8 11.2 - 14.8 % 06/20/2022 9:58 AM [facility] Platelet Count 449(H) 150 - 400 10? 3 /uL 06/20/2022 9:58 AM [facility] MPV 9.0(L) 9.4 - 12.9 fL 06/20/2022 9:58 AM [facility] nRBC Absolute 0.00 0 10? 3 /uL 06/20/2022 9:58 AM [facility] nRBC Auto 0.0 0 /100 WBC 06/20/2022 9:58 AM [facility] Neutrophils % 84.6(H) 35.0 - 70.0 % 06/20/2022 9:58 AM [facility] Lymphocytes % 6.7(L) 20.0 - 43.0 % 06/20/2022 9:58 [facility] Monocytes % 6.6 5.0 - 13.0 % 06/20/2022 9:58 AM T [facility] Eosinophils % 1.1 0.0 - 6.0 % 06/20/2022 9:58 AM T [facility] Basophil % 0.6 0.0 - 2.0 % 06/20/2022 9:58 AM T [facility] Neutrophils Absolute 9.94(H) 1.60 - 7.00 10? 3 /uL 06/20/2022 9:58 AM T [facility] Lymphocyte Absolute 0.79(L) 1.10 - 3.90 10? 3 /uL 06/20/2022 9:58 AM [facility] Monocytes Absolute 0.77 0.26 - 1.07 10? 3 /uL 06/20/2022 9:58 AM [facility] Eosinophils Absolute 0.13 0.00 - 0.47 10? 3 /uL 06/20/2022 9:58 AM T [facility] Basophils Absolute 0.07 0.00 - 0.08 10? 3 /uL 06/20/2022 9:58 AM [facility] Immature Granulocytes % 0.4 0.0 - 1.0 % 06/20/2022 9:58 AM [facility] Immature Granulocytes Absolute 0.05 06/20/2022 9:58 AM [facility] Blood BLOOD SPECIMEN / Unknown Venipuncture / Unknown 06/20/2022 9:49 AM CDT 06/20/2022 9:54 AM CDT Sima Kaufman PA-C LAB - HEMATOLOGY OR DERABLES [facility] [address] [place] [address], [facility] [phone] * EKG 12-LEAD (06/20/2022 9:40 AM CDT) Ventricular Rate 88 BPM [facility] MUSE Atrial Rate 88 BPM [facility] MUSE P-R Interval 176 ms [facility] MUSE QRS Duration ms 70 ms [facility] MUSE Q-T Interval ms 348 ms [facility] QTC Calculation (Bezet) 421 ms [facility] Calculated P [place] 75 degrees [facility] Calculated R [place] 55 degrees [facility] Calculated T [place] 74 degrees [facility] Interpretation EKG NORMAL SINUS RHYTHM NORMAL ECG WHEN COMPARED WITH ECG OF 15-FEB-2022 00:55, VENT. RATE HAS INCREASED by 15 bpm Confirmed by MARIN KEARNS MD ([id number]) on 06/20/2022 1:46:36 PM [facility] MUSE 06/20/2022 9:40 AM CDT 06/20/2022 1:46 PM CDT Sima Kaufman PA-C ECG ORDERABLES [facility] [place] documented in this encounter Visit Diagnoses Diagnosis Dizziness Dizziness and giddiness Shortness of breath Abdominal pain, left upper quadrant Hematemesis with nausea Anemia, unspecified type Coffee ground emesis Hematemesis Shortness of breath Abdominal pain, left upper quadrant Dizziness Dizziness and giddiness Hematemesis with nausea Coffee ground emesis Hematemesis documented in this encounter Administered Medications Inactive Administered Medications - up to 3 most recent administrations Medication Order MAR Action Action Date Dose Rate Site 0.9% NaCl infusion at 100 mL/hr, Intravenous, CONTINUOUS, Starting on 06/23/22 at 0800, Until 06/23/22 at 1754 $ New Bag/Syringe 06/23/2022 8:26 AM CDT 100 mL/hr 0.9% NaCl injection 1-10 mL 1-10 mL, Intracatheter, PRN, Other, peripheral line flush, Starting on Sat06/22/22 at 0820, Until 06/23/22 at 1754, Flush peripheral IV catheter with 1-10 mL of normal saline before and after medications and prn to clear blood from the line or to verify patency. $ Given 06/23/2022 8:26 AM CDT 10 mL 0.9% NaCl injection 3 mL 3 mL, Intracatheter, EVERY 8 HOURS, First dose on Sat06/22/22 at 0900, Until Discontinued, Flush peripheral IV catheter with 3 mL of normal saline every 8 hours. $ Given 06/23/2022 6:43 AM CDT 3 mL $ Given 06/22/2022 9:29 PM CDT 3 mL $ Given 06/22/2022 2:41 PM CDT 3 mL acetaminophen (Tylenol) tablet 650 mg 650 mg, Oral, EVERY 6 HOURS PRN, Mild Pain, Fever, Moderate Pain, Headache, Starting on Sat06/22/22 at 0821, Until 06/23/22 at 1754, Patient preference for lesser PRN pain meds may be honored when the patient requests a less strong medication, a lower dose, or a less intrusive route of administration when the lesser drug, dose and route have been ordered for the patient. This patient request must be documented in the MAR. $ Given 06/22/2022 11:12 PM CDT 650 mg $ Given 06/22/2022 5:18 PM CDT 650 mg buPROPion SR 12hr (Wellbutrin-SR) tablet 100 mg 100 mg, Oral, 2 TIMES DAILY, First dose on Sat06/22/22 at 1445, Until Discontinued, Do not crush, chew, or cut in half. $ Given 06/23/2022 8:27 AM CDT 100 mg $ Given 06/22/2022 9:35 PM CDT 100 mg $ Given 06/22/2022 5:18 PM CDT 100 mg carvedilol (Coreg) tablet 6.25 mg 6.25 mg, Oral, 2 TIMES DAILY, First dose on Sat06/22/22 at 2100, Until Discontinued, Take with food $ Given 06/23/2022 8:27 AM CDT 6.25 mg $ Given 06/22/2022 9:29 PM CDT 6.25 mg dextrose 10 % IV bolus 12.5 g, at 468.75 mL/hr, Intravenous, PRN, Other, Bedside Glucose less than 70 mg/dL -If NOT able to eat and/or NPO and with IV Access, Starting on Jeanette 06/21/22 at 1405, Until 06/23/22 at 1754, If NOT able to eat and/or NPO [...] 80 mg/dl. NOTIFY PROVIDER OF HYPOGLYCEMIC EVENT. dextrose 10 % IV bolus 25 g, at 937.5 mL/hr, Intravenous, PRN, Other, Bedside Glucose less than 70 mg/dL -If NOT able to eat and/or NPO and with IV Access, Starting on Jeanette 06/21/22 at 1405, Until 06/23/22 at 1754, If NOT able to eat and/or NPO [...] Dextrose IV STAT NOTIFY PROVIDER OF HYPOGLYCEMIC EVENT. $ New Bag/Syringe 06/21/2022 2:12 PM CDT 25 g 937.5 mL/hr escitalopram (Lexapro) tablet 10 mg 10 mg, Oral, DAILY, First dose on Sat06/22/22 at 1445, Until Discontinued $ Given 06/23/2022 8:27 AM CDT 10 mg $ Given 06/22/2022 5:18 PM CDT 10 mg glucagon (Glucagen) injection 1 mg 1 mg, Subcutaneous, PRN, Bedside Glucose less than 70 mg/dL - If NOT able to eat and/or NPO and withOUT IV Access, Starting on Jeanette 06/21/22 at 1405, Until 06/23/22 at 1754, If NOT able to eat and/or NPO [...] vial gently; use immediately and discard unused portion glucose (Diabetic Use) (Dex4 Glucose) oral liquid Oral, PRN, Other, Bedside Glucose less than 70 mg/dL -If able to eat and does not have swallowing difficulties, Starting on Jeanette 06/21/22 at 1405, Until 06/23/22 at 1754, If able to eat and can swallow [...] above for choices) NOTIFY PROVIDER OF HYPOGLYCEMIC EVENT. glucose (Diabetic Use) oral gel Oral, PRN, Other, Bedside Glucose less than 70 mg/dL -If able to eat and does not have swallowing difficulties, Starting on Jeanette 06/21/22 at 1405, Until 06/23/22 at 1754, If able to eat and is better [...] above for choices) NOTIFY PROVIDER OF HYPOGLYCEMIC EVENT. glucose chew tablet 4 tablet 4 tablet (16 g), Oral, PRN, Other, Bedside Glucose less than 70 mg/dL -If able to eat and does not have swallowing difficulties, Starting on Jeanette 06/21/22 at 1405, Until 06/23/22 at 1754, If able to eat and does not [...] above for choices). NOTIFY PROVIDER OF HYPOGLYCEMIC EVENT. meclizine (Antivert) tablet 12.5 mg 12.5 mg, Oral, 3 TIMES DAILY PRN, Dizziness, Starting on Sat06/22/22 at 1402, Until 06/23/22 at 1754 $ Given 06/22/2022 6:51 PM CDT 12.5 mg ondansetron (disintegrating) (Zofran ODT) tablet 4 mg 4 mg, Oral, EVERY 6 HOURS PRN, Nausea/Vomiting, Starting on Sat06/22/22 at 0821, Until 06/23/22 at 1754, Dissolved orally on tongue Dissolved orally on tongue $ Given 06/22/2022 9:29 PM CDT 4 mg ondansetron (Zofran) injection 4 mg 4 mg, Intravenous, EVERY 6 HOURS PRN, Nausea/Vomiting, Starting on Sat06/22/22 at 0821, Until 06/23/22 at 1754, Administer IV if patient is NPO, actively vomiting, or unable to swallow. pantoprazole EC (Protonix) tablet 40 mg 40 mg, Oral, DAILY, First dose on Sat06/23/22 at 0700, Until Discontinued, prior to first meal of the day Do not crush, chew, or cut in half. $ Given 06/23/2022 8:26 AM CDT 40 mg pravastatin (Pravachol) tablet 40 mg 40 mg, Oral, AT BEDTIME, First dose on Sat06/22/22 at 2100, Until Discontinued $ Given 06/22/2022 9:29 PM CDT 40 m g vitamin D3 (Cholecalciferol) 10 MCG (400 UNIT) tablet 800 Units 800 Units, Oral, DAILY, First dose on Sat06/22/22 at 1500, Until Discontinued, 400 units = 10 mcg $ Given 06/23/2022 8:27 AM CDT 800 Units $ Given 06/22/2022 2:41 PM CDT 800 Units documented in this encounter Active and Recently Administered Medications Times are shown in CDT. Scheduled Medication Order 06/21/2022 06/22/2022 06/23/2022 0.9% NaCl injection 3 mL(Linked Group 1) 3 mL, Intracatheter, EVERY 8 HOURS, First dose on Sat06/22/22 at 0900, Until Discontinued, Flush peripheral IV catheter with 3 mL of normal saline every 8 hours. 1441 ($ Given - Provider: Mark Anthony Magana RN)1442 (Not Administered - Provider: Mark Anthony Magana RN - Reason: IV Currently Infusing)2129 ($ Given - Provider: Damian Arevalo RN) 0643 ($ Given - Provider: Damian Arevalo RN)1320 (Not Administered - Provider: Tita Arvizu RN - Reason: See Comments - Comment: iv infusing) buPROPion SR 12hr (Wellbutrin-SR) tablet 100 mg 100 mg, Oral, 2 TIMES DAILY, First dose on Sat06/22/22 at 1445, Until Discontinued, Do not crush, chew, or cut in half. 171 ($ Given - Provider: Mark Anthony Magana RN)213 ($ Given - Provider: Damian Arevalo RN) 08 ($ Given - Provider: Tita Arvizu RN) carvedilol (Coreg) tablet 6.25 mg 6.25 mg, Oral, 2 TIMES DAILY, First dose on Sat06/22/22 at 2100, Until Discontinued, Take with food 2128 ($ Given - Provider: Damian Arevalo RN) 826 ($ Given - Provider: Tita Arvizu RN) escitalopram (Lexapro) tablet 10 mg 10 mg, Oral, DAILY, First dose on Sat06/22/22 at 1445, Until Discontinued 1717 ($ Given - Provider: Mark Anthony Magana RN) 826 ($ Given - Provider: Tita Arvizu RN) latanoprost (Xalatan) 0.005 % ophthalmic solution 1 drop 1 drop, Each Eye, AT BEDTIME, First dose on Sat06/22/22 at 2100, Until Discontinued, Allow at least 5 minutes between administration of multiple ophthalmic products Once opened, store at room temperature 2135 (Not Administered - Provider: Damian Arevalo RN - Reason: Medication not available) magnesium sulfate 4 g in 100 mL bolus (COMPLETED) 4 g, at 25 mL/hr, Administer over 240 Minutes, Intravenous, ONCE, 1 dose, On Sat06/22/22 at 1000, Infuse at 1 gm/hr 1047 ($ New Bag/Syringe - Provider: Mark Anthony Magana RN)1447 (Stopped - Provider: Mark Anthony Magana RN) pantoprazole (Protonix) injection 40 mg (COMPLETED) 40 mg, Intravenous, 2 TIMES DAILY, 5 doses, First dose on Sat06/20/22 at 2100, Last dose on Sat06/22/22 at 2100, For every 40 mg of pantoprazole mix with 10 mL Normal Saline (final concentration = 4 mg/mL). Inject SLOWLY over 2 min. 0836 ($ Given - Provider: Mark Anthony Magana RN)2047 ($ Given - Provider: Leobardo Chisholm RN) 0839 ($ Given - Provider: Mark Anthony Magana RN)2128 ($ Given - Provider: Damian Arevalo, SANTI) pantoprazole EC (Protonix) tablet 40 mg 40 mg, Oral, DAILY, First dose on Sat06/23/22 at 0700, Until Discontinued, prior to first meal of the day Do not crush, chew, or cut in half. 08 ($ Given - Provider: Tita Arvizu, RN) pravastatin (Pravachol) tablet 40 mg 40 mg, Oral, AT BEDTIME, First dose on Sat06/22/22 at 2100, Until Discontinued 2128 ($ Given - Provider: Damian Arevalo, SANTI) scopolamine (Transderm-Scop) 1 patch (CANCELED)(Linked Group 2) 1 patch, Administer over 72 Hours, EVERY 72 HOURS, First dose on Jeanette 06/21/22 at 1115, Until Discontinued, Apply patch behind the ear, do not cut patch, only 1 patch should be worn at a time and remove old patch before applying new patch.This patch may contain metal and is not compatible with MRI. Notify radiology of patch location upon arrival to MRI. Each patch contains 1.5 mg scopolamine base and is formulated to deliver 1 mg of scopolamine over 72 hours. 1200 ($ Applied - Provider: Mark Anthony Magana RN) 1112 (Removed - Provider: Mark Anthony Magana RN - Comment: Time automatically adjusted from order being discontinued) vitamin D3 (Cholecalciferol) 10 MCG (400 UNIT) tablet 800 Units 800 Units, Oral, DAILY, First dose on Sat06/22/22 at 1500, Until Discontinued, 400 units = 10 mcg 1441 ($ Given - Provider: Mark Anthony Magana RN) 0827 ($ Given - Provider: Tita Arvizu, RN) Continuous Medication Order 06/21/2022 06/22/2022 06/23/2022 0.9% NaCl infusion at 100 mL/hr, Intravenous, CONTINUOUS, Starting on 06/23/22 at 0800, Until 06/23/22 at 1754 0826 ($ New Bag/Syringe - Provider: Tita Arvizu, RN) dextrose 5 % and 0.9% NaCl infusion () at 100 mL/hr, Intravenous, CONTINUOUS, Starting on Jeanette 06/21/22 at 1445, Until Sat06/22/22 at 0044 1524 ($ New Bag/Syringe - Provider: Mark Anthony Magana, RN) 0028 ($ New Bag/Syringe - Provider: Leobardo Chisholm, SANTI) lactated ringers infusion (CANCELED) at 100 mL/hr, Intravenous, CONTINUOUS, Starting on 06/20/22 at 1900, Until Jeanette 06/21/22 at 1407 0041 ($ New Bag/Syringe - Provider: Leobardo Chisholm, SANTI)0041 (Current Rate - Provider: Leobardo Chisholm RN)0630 (Current Rate - Provider: Leobardo Chisholm, RN)0952 ($ New Bag/Syringe - Provider: Mark Anthony Magana RN) PRN Medication Order 06/21/2022 06/22/2022 06/23/2022 0.9% NaCl injection 1-10 mL(Linked Group 1) 1-10 mL, Intracatheter, PRN, Other, peripheral line flush, Starting on Sat06/22/22 at 0820, Until 06/23/22 at 1754, Flush peripheral IV catheter with 1-10 mL of normal saline before and after medications and prn to clear blood from the line or to verify patency. 0826 ($ Given - Provider: Tita Arvizu RN) acetaminophen (Tylenol) tablet 650 mg 650 mg, Oral, EVERY 6 HOURS PRN, Mild Pain, Fever, Moderate Pain, Headache, Starting on Sat06/22/22 at 0821, Until 06/23/22 at 1754, Patient preference for lesser PRN pain meds may be honored when the patient requests a less strong medication, a lower dose, or a less intrusive route of administration when the lesser drug, dose and route have been ordered for the patient. This patient request must be documented in the MAR. 171 ($ Given - Provider: Mark Anthony Magana, SANTI)231 ($ Given - Provider: Damian Arevalo RN) dextrose 10 % IV bolus(Linked Group 3) 12.5 g, at 468.75 mL/hr, Intravenous, PRN, Other, Bedside Glucose less than 70 mg/dL -If NOT able to eat and/or NPO and with IV Access, Starting on Jeanette 06/21/22 at 1405, Until 06/23/22 at 1754, If NOT able to eat and/or NPO [...] 80 mg/dl. NOTIFY PROVIDER OF HYPOGLYCEMIC EVENT. 1412 (See Alternative - Provider: Mark Anthony Magana RN)1421 (See Alternative - Provider: Mark Anthony Magana RN)1436 (See Alternative - Provider: Tita Arvizu, RN) dextrose 10 % IV bolus(Linked Group 3) 25 g, at 937.5 mL/hr, Intravenous, PRN, Other, Bedside Glucose less than 70 mg/dL -If NOT able to eat and/or NPO and with IV Access, Starting on Jeanette 06/21/22 at 1405, Until 06/23/22 at 1754, If NOT able to eat and/or NPO [...] Dextrose IV STAT NOTIFY PROVIDER OF HYPOGLYCEMIC EVENT. 1412 ($ New Bag/Syringe - Provider: Mark Anthony Magana RN)142 (Stopped - Provider: Mark Anthony Magana RN)1436 (Stopped - Provider: Tita Arvizu, RN) glucagon (Glucagen) injection 1 mg 1 mg, Subcutaneous, PRN, Bedside Glucose less than 70 mg/dL - If NOT able to eat and/or NPO and withOUT IV Access, Starting on Jeanette 06/21/22 at 1405, Until 06/23/22 at 1754, If NOT able to eat and/or NPO [...] vial gently; use immediately and discard unused portion glucose (Diabetic Use) (Dex4 Glucose) oral liquid Oral, PRN, Other, Bedside Glucose less than 70 mg/dL -If able to eat and does not have swallowing difficulties, Starting on Jeanette 06/21/22 at 1405, Until 06/23/22 at 1754, If able to eat and can swallow [...] above for choices) NOTIFY PROVIDER OF HYPOGLYCEMIC EVENT. glucose (Diabetic Use) oral gel Oral, PRN, Other, Bedside Glucose less than 70 mg/dL -If able to eat and does not have swallowing difficulties, Starting on Jeanette 06/21/22 at 1405, Until 06/23/22 at 1754, If able to eat and is better [...] above for choices) NOTIFY PROVIDER OF HYPOGLYCEMIC EVENT. glucose chew tablet 4 tablet 4 tablet (16 g), Oral, PRN, Other, Bedside Glucose less than 70 mg/dL -If able to eat and does not have swallowing difficulties, Starting on Jeanette 06/21/22 at 1405, Until 06/23/22 at 1754, If able to eat and does not [...] above for choices). NOTIFY PROVIDER OF HYPOGLYCEMIC EVENT. meclizine (Antivert) tablet 12.5 mg 12.5 mg, Oral, 3 TIMES DAILY PRN, Dizziness, Starting on Sat06/22/22 at 1402, Until 06/23/22 at 1754 1851 ($ Given - Provider: Mark Anthony Magana RN) ondansetron (disintegrating) (Zofran ODT) tablet 4 mg(Linked Group 4) 4 mg, Oral, EVERY 6 HOURS PRN, Nausea/Vomiting, Starting on Sat06/22/22 at 0821, Until 06/23/22 at 1754, Dissolved orally on tongue Dissolved orally on tongue 2128 ($ Given - Provider: Damian Arevalo RN) ondansetron (Zofran) injection 4 mg(Linked Group 4) 4 mg, Intravenous, EVERY 6 HOURS PRN, Nausea/Vomiting, Starting on Sat06/22/22 at 0821, Until 06/23/22 at 1754, Administer IV if patient is NPO, actively vomiting, or unable to swallow. 2128 (See Alternative - Provider: Damian Arevalo, SANTI) Linked Groups Order Group 1: SALINE LOCK, INSERT AND MAINTAIN (CANCELED) Routine, CONTINUOUS, Starting on Sat06/22/22 at 0830, Until Specified, New collection And 0.9% NaCl injection 3 mLJump to med 3 mL, Intracatheter, EVERY 8 HOURS, First dose on Sat06/22/22 at 0900, Until Discontinued, Flush peripheral IV catheter with 3 mL of normal saline every 8 hours. And 0.9% NaCl injection 1-10 mLJump to med 1-10 mL, Intracatheter, PRN, Other, peripheral line flush, Starting on Sat06/22/22 at 0820, Until 06/23/22 at 1754, Flush peripheral IV catheter with 1-10 mL of normal saline before and after medications and prn to clear blood from the line or to verify patency. Group 2: scopolamine (Transderm-Scop) 1 patch (CANCELED)Jump to med 1 patch, Administer over 72 Hours, EVERY 72 HOURS, First dose on Sat06/21/22 at 1115, Until Discontinued, Apply patch behind the ear, do not cut patch, only 1 patch should be worn at a time and remove old patch before applying new patch.This patch may contain metal and is not compatible with MRI. Notify radiology of patch location upon arrival to MRI. Each patch contains 1.5 mg scopolamine base and is formulated to deliver 1 mg of scopolamine over 72 hours. And scopolamine patch placement confirmation (CANCELED) Transdermal, 2 TIMES DAILY, First dose on Jeanette 06/21/22 at 1045, Until Discontinued, Patient has a patch to be confirmed on transition to inpatient and 2 times daily. Group 3: dextrose 10 % IV bolusJump to med 12.5 g, at 468.75 mL/hr, Intravenous, PRN, Other, Bedside Glucose less than 70 mg/dL -If NOT able to eat and/or NPO and with IV Access, Starting on Jeanette 06/21/22 at 1405, Until 06/23/22 at 1754, If NOT able to eat and/or NPO [...] 80 mg/dl. NOTIFY PROVIDER OF HYPOGLYCEMIC EVENT. Or dextrose 10 % IV bolusJump to med 25 g, at 937.5 mL/hr, Intravenous, PRN, Other, Bedside Glucose less than 70 mg/dL -If NOT able to eat and/or NPO and with IV Access, Starting on Jeanette 06/21/22 at 1405, Until 06/23/22 at 1754, If NOT able to eat and/or NPO [...] Dextrose IV STAT NOTIFY PROVIDER OF HYPOGLYCEMIC EVENT. Group 4: ondansetron (disintegrating) (Zofran ODT) tablet 4 mgJump to med 4 mg, Oral, EVERY 6 HOURS PRN, Nausea/Vomiting, Starting on Sat06/22/22 at 0821, Until 06/23/22 at 1754, Dissolved orally on tongue Dissolved orally on tongue Or ondansetron (Zofran) injection 4 mgJump to med 4 mg, Intravenous, EVERY 6 HOURS PRN, Nausea/Vomiting, Starting on 06/22/22 at 0821, Until 06/23/22 at 1754, Administer IV if patient is NPO, actively vomiting, or unable to swallow. documented in this encounter Care Teams Operations Management Trainee Relationship Specialty Start Date End Date Karrie Phillips MD [facility] [place] [address] PCP - General 03/13/22 documented as of this encounter
--- OUTSIDE RECORDS SUMMARY | 2024-04-11 03:31 | XMS_ITS | Encounter Summary ---
Author Organization [employer] Address [address] [place] [address] Care Team Providers Care Fishing Accessories Maker Name Role Phone Karrie Phillips MD Primary Care Provider [phone] Reason for Visit * Auth/Cert (Routine) Specialty Diagnoses / Procedures Referred By Everardo fried Referred To Contact Diagnoses Cervical myelopathy (HCC) cervical myelopathy Procedures FUSION POSTERIOR CERVICAL (PCF) Referral ID Status Reason Start Date Expiration Date Visits Re quested Visits Authorized [id number] 1 1 Encounter Details Date Type Department Care Team (Late st Contact Info) Description 06/04/2022 7:30 AM SERVICE WORKER - 06/04/2022 11:42 AM SERVICE WORKER Surgery [facility] [address] [place] [address] Deon Taylor MD [address] [place] [address] C5-C6 laminectomy, C4-T2 posterior instrumented spinal fusion Surgery Details Date/Time Status Location OR Service Patient Class Case Class Case Type Trauma Case? 06/04/2022 7:30 AM Posted [facility] OR OR Orthopedics Soaker Hides Admit Surgical Elective > 5 days Panel 1 Procedure LRB Anes Op Region Wound Class Comments C5-C6 laminectomy, C4-T2 pos terior instrumented spinal fusion N/A General Clean Surgeon Surgeon Role Service Panel Deon Taylor MD Primary Orthopedics 1 Case Notes LATEX ALLERGY Special Needs PRONE, C-ARM CERVICAL ATTACHMENT JULIETH DONALD NEURO MONITORING POWER:4mm jose, 4mm cutter, 2mm cutter DEPUY: DELILAH MCGINNIS [phone]; EMERSON CUNNINGHAM [phone]--reps notified mk 06/01 documented in this encounter Social History Tobacco [...] and heating? Not hard at all 06/04/2022 [facility] - Occupational Stress [...] Sign Reading Time Taken Comments Blood Pressure 112/62 06/04/2022 6:30 AM SERVICE WORKER Pulse 86 06/04/2022 6:30 AM SERVICE WORKER Temperature 36.7 ??C (98 ??F) 06/04/2022 6:22 AM SERVICE WORKER Respiratory Rate 19 06/04/2022 6:30 AM SERVICE WORKER Oxygen Saturation - - Inhaled Oxygen Concentration - - Weight 60.5 kg (133 lb 6.4 oz) 06/04/2022 5:52 A M SERVICE WORKER Height 154.9 cm (5' 1 ) 06/04/2022 5:52 AM SERVICE WORKER Body Mass Index 25.21 06/04/2022 5:52 AM SERVICE WORKER documented in this encounter Functional Status Functional [...] Physician Discharge Summary Patient ID: Kandace Cole [id number] 72 year old 1950 Admit date: 06/04/2022 [...] PT/OT who are recommending rehab. Discharged to [facility]. ?? Consults: Orthopedics Significant Diagnostic [...] Instructions: A Note From Your Doctors: Dear Kandacejacob Cole, You were admitted to the hospital [...] 0.65 % nasal spray Commonly known as: [place]; Baby Mckinney [place] 1 (one) spray into each nostril as [...] sure to ask the pharmacy when you pickle pumper your prescription. You may also call your primary provider to ask if you should be taking your medication. FOLLOW-UP: It is important that you follow-up with all appointments that have been made on your behalf. These appointments include: Future Appointments Monday June 20, 2022 8:45 AM Appointment with Deon Taylor at [facility] 1L ([phone]) [address] [facility] [phone] If a follow-up with your primary care provider has not been scheduled, please schedule an appointment to follow-up on your hospitalization. If there is a conflict, please call the clinic ahead of time and reschedule the appointment. Regards, Internal Medicine Department [facility] [address] [place] [address] Orthopedic Spine Surgery Patient Discharge Instructions [...] please call 911. Follow up Contact Information: [facility] Orthopedic Surgery office contact information: [facility] Specialized Medicine ([facility]) [address] [facility], 1st [place] [address] [facility] [address] [facility], [address] [place] [address] Visit our website at [email or web address] for information about our practice and an interactive health encyclopedia. Please visit e(ye)[email or web address].[email or web address] to access your health record, ask questions, request medication refills, and request appointments for non-urgent needs after you have configured your HelloSign account. If you do not currently have access, please contact one of our staff members or call [phone]. For after hour emergencies, please call [phone] and press 0 for the scrap shear operator in order to page the orthopedic resident telephone service representative. This list of medications is preliminary and [...] TABLET BY MOUTH DAILY saline nasal spray (Tropical Park; Baby Mckinney) 0.65 % nasal spray [place] 1 (one) spray into each nostril as [...] Tammi Perez MD, 06/08/2022 at 3:12 PM ICE WORKER Associated attestation - Ama Gonzalez MD - 06/08/2022 7:17 PM SERVICE WORKER I have verified the documentation and discharge [...] falls and polypharmacy, who was admitted to ortho spine 06/04 for a [...] Tammi Perez MD - 06/07/2022 11:07 AM SERVICE WORKER A Note From Your Doctors: Dear Kandace [...] 0.65 % nasal spray Commonly known as: [place]; Baby Mckinney [place] 1 (one) spray into each nostril as [...] sure to ask the pharmacy when you pickle pumper your prescription. You may also call your primary provider to ask if you should be taking your medication. FOLLOW-UP: It is important that you follow-up with all appointments that have been made on your behalf. These appointments include: Future Appointments Monday June 20, 2022 8:45 AM Appointment with Deon Taylor at [facility] 1L ([phone]) [address] [place] [phone] If a follow-up with your primary care provider has not been scheduled, please schedule an appointment to follow-up on your hospitalization. If there is a conflict, please call the clinic ahead of time and reschedule the appointment. Regards, Internal Medicine Department [facility] [address] [place] [address] Orthopedic Spine Surgery Patient Discharge Instructions [...] incision covered until your follow up appointment. --Sutures/[place]: to be removed at your next clinic [...] an appointment. For medical emergencies, please call [phone]. Follow up Contact Information: [facility] Orthopedic Surgery office contact information: [facility] Medicine ([facility]) [address] [place] [address], 1[address] [place] [address] [facility] [address] [facility], [address] [place] [address] Visit our website at [email or web address] for information about our practice and an interactive health encyclopedia. Please visit e(ye)[email or web address].[facility] to access your health record, ask questions, request medication refills, and request appointments for non-urgent needs after you have configured your HelloSign account. If you do not currently have access, please contact one of our staff members or call [phone]. For after hour emergencies, please call and press 0 for the scrap shear operator in order to page the orthopedic resident telephone service representative. ICE WORKER documented in this encounter Medications at Time [...] mouth every evening 06/08/2022 saline nasal spray ([place]; Baby Mckinney) 0.65 % nasal spray [place] 1 (one) spray into each nostril as [...] to allow for safe mobility Outcome: Progressing ICE WORKER * Makenzie Choi RN - 06/08/2022 3:57 PM CST Problem: Pain/Discomfort Goal: Patient exhibits reduced pain/discomfort as evidenced by pain scores 06/08/2022 155 by Makenzie Choi RN Outcome: [...] relaxed breathing at normal rate and depth. 06/08/2022 155 by Makenzie Choi RN Outcome: Adequate for Discharge 06/08/2022 1420 by Makenzie Choi RN Outcome: Progressing Goal: Adheres to CPAP (Continuous Positive Airway Pressure) device regimen as prescribed. 06/08/2022 155 by Makenzie Choi RN Outcome: Adequate for Discharge 06/08/2022 1420 by Makenzie Choi RN Outcome: Progressing Problem: Sleep deprivation related to sleep apnea. Goal: Achieves restful, refreshing sleep pattern. 06/08/2022 155 by Makenzie Choi RN Outcome: Adequate for Discharge 06/08/2022 1420 by Makenzie Choi RN Outcome: Progressing Problem: Nutrient: Increased nutrient needs (specify) Goal: Total intake will meet estimated nutrient needs 06/08/2022 1557 by Makenzie Choi RN Outcome: Adequate for Discharge 06/08/2022 1420 by Makenzie Choi RN Outcome: Progressing Problem: Grooming Goal: LTG - Patient will complete daily grooming tasks 06/08/2022 1557 by Makenzie Choi RN Outcome: Adequate for Discharge 06/08/2022 1420 by Makenzie Choi RN Outcome: Progressing Problem: Balance Goal: LTG - Patient will maintain balance to allow for safe mobility 06/08/2022 1557 by Makenzie Choi RN Outcome: Adequate for Discharge 06/08/2022 1420 by Makenzie Choi RN Outcome: Progressing ICE WORKER * Charissa Murphy - 06/08/2022 2:52 PM CST Facility Transfer Note Level of Care: Actual level of care at discharge: Acute Rehab Facility Facility Name: (include name of person confirming admission): Actual discharge provider: [facility] Made Aware of Special Needs (if applicable): n/a RN Call Report to:[phone] Fax D/C Orders to:[phone] MD to MD: Dr Baldwin [phone] Transportation (company and number): [employer]: [id number] Certificate of Medical Necessity rationale: weakness, impaired mobility, unsteady gait, spinal precautions Date/time of transfer: 06-08-22 @ Accepting MD and contact #: Denny Completed and Signed [id number] (if applicable): n/a Family/Other Notified of Transfer (name/phone): patient Authorization Skilled Care: Authorization for Transportation: Verified Qualifying Stay(Skilled Only): NOT APPLICABLE Comments: Name/Phone number: Charissa Murphy [phone] ICE WORKER * Joanna Easley PT - 06/08/2022 2:24 PM CST [facility] Physical Medicine and Rehabilitation Physical Therapy Progress Note Patient: Kandace Cole [facility] Record Number: [id number] Date of : 1950 Age: [age] year [...] as Tolerated Spine Precautions: Yes Spine Precautions: [place] OBJECTIVE: At start of therapy session, patient [...] ambulate??75??feet with minimal assist??and appropriate AD ?? Can Capper Goal(s): Patient to discharge to appropriate next [...] light within reach, with Makenzie HANCOCK aware. ICE WORKER * Makenzie Choi RN - 06/08/2022 2:20 [...] to allow for safe mobility Outcome: Progressing ICE WORKER * Annemarie Collazo COTA - 06/08/2022 2:04 PM CST [facility] Physical Medicine and Rehabilitation Occupational Therapy Progress Note Patient: Kandace Cole [facility] Record Number: [id number] Date of : 1950 Age: [age] year [...] perform bed to chair??with stand by assist [facility] Goal(s): Patient to discharge to appropriate next [...] with therapy cues visible on white board. ICE WORKER * Cammy Aleman RN - 06/08/2022 12:51 [...] Brother Secondary Emergency Contact: Barbara Cisneros Address: [place], [place] Relation: Other Transportation at Discharge: Family [...] get more.: Never true Medication affordability concerns: [place]: Cammy Aleman RN Case senior business development manager: [phone] 06/08/2022 ICE WORKER * Tammi Perez MD - 06/08/2022 10:20 AM CST Internal Medicine Progress Note Patient: Kandace Cole (:1950) Room: [facility] Date of admission: 06/04/2022 No [...] deficits LABS CBC: Recent Labs Component Name 06/08/2221206/07/2222306/06/22306 WBC 9.2 11.8* 8.5 RBC 2.64* 2.85* 2.26* HGB 7.9* 8.5* 6.7* HCT 23.9* 25.2* 20.8* BMP: Recent Labs Component Name 06/08/2221206/07/2222306/06/22306 NA 132* 130* 129* CL 97* 102 100 CO2 24 24 22 BUN 25 25 25 CREATININE 1.30* 1.26* 1.34* CALCIUM 8.4 8.8 8.9 LFTs: Recent Labs Component Name 02/16/22 0757 02/14/22 2355 AST - 16 ALT - 13 ALKPHOS - 58 TBILI - 0.5 ALB 3.6 3.4 Magnesium: No results for input(s): MG in the last 76824 hours. Phosphorus: Recent Labs Component Name 06/08/2221206/07/2222306/06/22306 PHOS 2.5* 2.7* 3.2 Coagulation: No results for input(s): PT, INR, PTT in the last 65643 hours. Micro Microbiology Results (Displays last 21 [...] ? Tammi Perez MD PGY-3 Internal Medicine ICE WORKER Associated attestation - Ama Gonzalez MD - 06/08/2022 10:42 PM SERVICE WORKER I have verified the documentation of the [...] Easley PT - 06/08/2022 10:15 AM CST [facility] Department of Physical Medicine & Rehabilitation Progress Note Patient: Kandace Cole Med Record Number: [id number] Date of : 1950 Age: [age] year old 06/08/22 1015 Missed Visit Missed Visit Other (Comment) (Patient just back to bed. Requested therapy at later time.) ICE WORKER * Charissa Murphy - 06/08/2022 9:55 AM CST Saturday Summary Note Discharge Level of Care: Rehab Discharge Destination:[facility] Phone Number: (Tracey peña) Fax Number: Insurance Auth:auth will need to be done as patient has [facility] Anticipated Mode of Transportation: to be determined (EMS) or person vehicle Contacts (Name, relationship, phone #): Anticipated DC Date: patient is ready for disposition Pending Needs: review from rehab for acceptance and authorization will need to be done. Comments: Liaison is aware of this referral and will review. SW was called by [facility] [phone] saying to call them as two rehab's have put in request ([facility] and [facility]) DASHAWN informed that [facility] has been the chosen provider and never spoke to anyone at [facility]. Personnel Arbitrator with [facility] informed DASHAWN that it's currently under review. DASHAWN provided contact information for automotive sales representative to call back once decision has been made. Charissa Murphy Phone [phone] 06/08/2022 ICE WORKER * Heather Sethi - 06/08/2022 8:52 AM CST Internal Medicine Progress Note Patient: Kandace Cole (:1950) Room: [facility]/ Date of admission: 06/04/2022 No of days [...] 8.8 8.9 LFTs: Recent Labs Component Name 02/16/22 0757 02/14/22 2355 AST - 16 ALT - 13 ALKPHOS - 58 TBILI - 0.5 ALB 3.6 3.4 Magnesium: No results for input(s): MG in the last 28772 hours. Phosphorus: Recent Labs Component Name 06/08/2221206/07/2222306/06/22 030 PHOS 2.5* 2.7* 3.2 Coagulation: No results for input(s): PT, INR, PTT in the last 20891 hours. Micro Microbiology Results (Displays last 21 [...] is HDS. Heather Sethi MS3 Internal Medicine ICE WORKER Associated attestation - Ama Gonzalez MD - 06/08/2022 7:11 PM SERVICE WORKER I have verified the documentation of the medical student. This note is for educational purposes only. Please refer to the resident's note for complete note for details and my assessment. Ama Gonzalez MD 06/08/2022 * Joey Dickens MD - 06/08/2022 5:50 AM CST [facility] Orthopedic Spine Surgery Daily Progress Note Kandace Cole, 72 year old, female : 1950 CSN: [id number] Primary Care Physician: Karrie Phillips MD, MD [...] SpO2 100% Labs Recent Labs Component Name 06/08/22 0213 06/07/22 0224 06/06/22 0307 WBC 9.2 11.8* 8.5 HGB 7.9* 8.5* 6.7* HCT 23.9* 25.2* 20.8* PLTCOUNT 287 291 254 Recent Labs Component Name 06/08/2221206/07/224 06/06/22 0307 NA 132* 130* 129* POTASSIUM 5.4* 5.3* 4.6* CL 97* 102 100 CO2 24 24 22 BUN 25 25 25 CREATININE 1.30* 1.26* 1.34* GLUCOSE 97 121* 112 Recent Labs Component Name 06/08/2221206/07/224 06/06/22 0307 MAGNESIUM 1.7 2.1 1.6 PHOS 2.5* 2.7* 3.2 No results for input(s): PT, INR in the last 85024 hours. No results for input(s): PTT in the last 35958 hours. Cultures No results found for this or any previous visit (from the past 248 hour(s)). Physical Exam General: Awake, alert, follows commands, in no acute distress Neck: - C-collar/[place]du[place] J: Present - Tenderness to palpation: Deferred [...] tolerated in C-collar ??? Drain removed yesterday (3/9) ??? PT/OT daily ??? Anticoagulation: SCDs, ambulation ??? Recommend pain control and bowel regimen ??? Antibiotics: periop ancef completed ??? Wound care: PRN ??? Diet: OK from Ortho standpoint ??? Current Dispo: PT/OT recommending rehab ??? Please page Ortho Spine with any questions or concerns Joey Dickens MD 06/08/2022 5:50 AM ICE WORKER * Vivian Boo RN - 06/07/2022 10:43 [...] at normal rate and depth. Outcome: Progressing ICE WORKER * Ama Gonzalez MD - 06/07/2022 10:38 [...] falls and polypharmacy, who was admitted to ortho spine 06/04 for a [...] TID Joey Dickens MD 300 mg at 06/07/222019 ??? glucagon (Glucagen) injection 1 mg 1 [...] PRN Tammi Perez MD 5 mg at 06/06/222026 ??? pantoprazole EC (Protonix) tablet 40 mg 40 mg Oral QDAY Padma Morales MD 40 mg at 06/07/22 0841 ??? polyethylene glycol 3350 (Miralax) packet 17 g 17 g Oral QDAY PRN Tammi Perez MD ??? pravastatin (Pravachol) tablet 40 mg 40 mg Oral AT BEDTIME Padma Morales MD 40 mg at 06/07/22 2020 ??? [START ON 06/08/2022] QUEtiapine (SEROquel) tablet 100 mg 100 mg Oral QPM Tammi Perez MD ??? saline nasal spray ([place]; Baby Mckinney) 0.65 % nasal spray 2 spray 2 [...] % Intake/Output Summary (Last 24 hours) at 06/07/2022 2239 Last data filed at 06/07/2022 1014 Gross [...] input(s): PT, INR, APTT in the last 14202 hours. Recent Labs Component Name 06/07/22 0224 06/06/22 0307 06/05/22 1232 06/05/22 0458 05/15/22 1352 WBC 11.8* 8.5 10.0 10.4 6.6 HGB 8.5* 6.7* 7.0* 7.1* 9.9* MCV 88.4 92.0 90.5 91.7 91.0 Recent Labs Component Name 06/07/2222306/06/22 0307 06/05/22 0458 NA 130* 129* 132* CL 102 100 103 CO2 24 22 19* BUN 25 25 27* CREATININE 1.26* 1.34* 1.40* Recent Labs Component Name 02/16/22 0757 02/14/22 [...] and Palliative Medicine Attending 06/07/2022 10:39 PM ICE WORKER * Makenzie Choi RN - 06/07/2022 6:28 [...] to allow for safe mobility Outcome: Progressing ICE WORKER * Daniella Le, PT - 06/07/2022 2:30 PM CST [facility] Physical Medicine and Rehabilitation Physical Therapy Progress Note Patient: Kandace Cole [facility] Record Number: [id number] Date of : 1950 Age: [age] year [...] (in C-collar) Spine Precautions: Yes Spine Precautions: [place] OBJECTIVE: At start of therapy session, patient [...] feet with minimal assist and appropriate AD Can Capper Goal(s): Patient to discharge to appropriate next [...] on , with call light within reach. ICE WORKER * Sherrie Boyer, OT - 06/07/2022 1:48 PM CST [facility] Physical Medicine and Rehabilitation Occupational Therapy Progress Note Patient: Kandace Cole Med Record Number: [id number] Date of : 1950 Age: [age] year [...] Pt agreeable to therapy; pleasant and motivated joss licea Pain Assessment: Pain Location #1 Pain Scale/Observation: [...] to chair with stand by assist ?? Can Capper Goal(s): Patient to discharge to appropriate next [...] on, with call light within reach, with RNMigdalia aware. ICE WORKER * Charissa Murphy - 06/07/2022 10:43 AM CST DASHAWN rec'd call from [facility]) to say Cadence will be here to assess patient. If patient isin agreement to going, auth will be initiated. SW to wait for liaison to come and patient to make determination on rehab choice. ISELA Hensley Care Coordination Keyseating Machine Set Up Operator ICE WORKER * Heather Sethi - 06/07/2022 10:12 AM CST Internal Medicine Progress Note Patient: Kandace Cole (:1950) Room: [facility] Date of admission: 06/04/2022 No [...] 8.9 8.5 LFTs: Recent Labs Component Name 02/16/22 0757 02/14/22 2355 AST - 16 ALT - 13 ALKPHOS - 58 TBILI - 0.5 ALB 3.6 3.4 Magnesium: No results for input(s): MG in the last 70955 hours. Phosphorus: Recent Labs Component Name 06/07/22 0224 06/06/22 0307 02/16/22 0757 PHOS 2.7* 3.2 3.9 Coagulation: No results for input(s): PT, INR, PTT in the last 41932 hours. Micro Microbiology Results (Displays last 21 [...] is HDS. Heather Sethi MS3 Internal Medicine ICE WORKER Associated attestation - Ama Gonzalez MD - 06/07/2022 10:37 PM SERVICE WORKER I have verified the documentation of the medical student. This note is for educational purposes only. Please refer to the resident's note for complete note for details and my assessment. Ama Gonzalez MD 06/07/2022 * Joey Dickens MD - 06/07/2022 5:31 AM CST [facility] Orthopedic Spine Surgery Daily Progress Note Kandace Cole, 72 year old, female : 1950 [facility]: [id number] Primary Care Physician: Karrie Phillips MD, MD [...] SpO2 97% Labs Recent Labs Component Name 06/07/2222306/06/2230606/05/22 1232 WBC 11.8* 8.5 10.0 HGB 8.5* 6.7* 7.0* HCT 25.2* 20.8* 20.9* PLTCOUNT 291 254 259 Recent Labs Component Name 06/07/2222306/06/2230606/05/22 0458 NA 130* 129* 132* POTASSIUM 5.3* 4.6* 5.2* CL 102 100 103 CO2 24 22 19* BUN 25 25 27* CREATININE 1.26* 1.34* 1.40* GLUCOSE 121* 112 107 Recent Labs Component Name 06/07/2222306/06/2230602/16/22 0757 MAGNESIUM 2.1 1.6 1.8 PHOS 2.7* 3.2 3.9 No results for input(s): PT, INR in the last 83476 hours. No results for input(s): PTT in the last 49367 hours. Cultures No results found for this or any previous visit (from the past 248 hour(s)). Physical Exam General: Awake, alert, follows commands, in no acute distress Neck: - C-collar/Blackdu[place] J: Present - Tenderness to palpation: Deferred [...] concerns Joey Dickens MD 06/07/2022 5:31 AM ICE WORKER Associated attestation - Deon Taylor MD - 06/07/2022 4:44 PM SERVICE WORKER I have seen and evaluated the patient [...] found in the flowsheet documentation) Outcome: Progressing ICE WORKER * Annemarie Collazo COTA - 06/06/2022 3:59 PM CST [facility] Department of Physical Medicine & Rehabilitation Progress Note Patient: Kandace Cole [facility] Record Number: [id number] Date of : 1950 Age: [age] year old 06/06/22 1017 Missed Visit Missed Visit RN Cancel (Pt receiveing blood) ICE WORKER * Heather Sethi - 06/06/2022 1:56 PM CST Internal Medicine Progress Note Patient: Kandace Cole (:1950) Room: [facility] Date of admission: 06/04/2022 No [...] 130/56 Pulse: 91 92 96 85 Resp: 18 16 17 Temp: 97.9 ??F (36.6 ??C) 98.1 ??F [...] 20.9* 22.1* BMP: Recent Labs Component Name 06/06/2230606/05/228 05/15/22 1352 NA 129* 132* 137 CL 100 103 103 CO2 22 19* 25 BUN 25 27* 20 CREATININE 1.34* 1.40* 1.53* CALCIUM 8.9 8.5 9.4 LFTs: Recent Labs Component Name 02/16/227 02/14/22 2355 AST - 16 ALT - 13 ALKPHOS - 58 TBILI - 0.5 ALB 3.6 3.4 Magnesium: No results for input(s): MG in the last 96186 hours. Phosphorus: Recent Labs Component Name 06/06/2230602/16/227 PHOS 3.2 3.9 Coagulation: No results for input(s): PT, INR, PTT in the last 97707 hours. Micro Microbiology Results (Displays last 21 [...] is HDS. Heather Sethi MS3 Internal Medicine ICE WORKER Associated attestation - Ama Gonzalez MD - 06/06/2022 8:42 PM SERVICE WORKER I have verified the documentation of the medical student. This note is for educational purposes only. Please refer to the resident's note for complete note for details and my assessment. Ama Gonzalez MD 06/06/2022 * Joanna Easley, PT - 06/06/2022 10:00 AM CST [facility] Department of Physical Medicine & Rehabilitation Progress Note Patient: Kandace Cole Med Record Number: [id number] Date of : 1950 Age: [age] year old 06/06/22 1000 Missed Visit Missed Visit RN Cancel (Patient receiving blood) ICE WORKER * Tammi Perez MD - 06/06/2022 9:01 AM CST Internal Medicine Progress Note Patient: Kandace Cole (:1950) Room: [facility] Date of admission: 06/04/2022 No [...] results for input(s): MG in the last 80496 hours. Phosphorus: Recent Labs Component Name 06/06/2230602/16/22756 PHOS 3.2 3.9 Coagulation: No results for input(s): PT, INR, PTT in the last 80373 hours. 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 Tammi Perez MD PGY-3 Internal Medicine ICE WORKER Associated attestation - Ama Gonzalez MD - 06/06/2022 9:13 PM SERVICE WORKER I have verified the documentation of the [...] falls and polypharmacy, who was admitted to [facility] 06/04 for a planned cervical-thoracic posterior [...] 72 year old, female : 1950 CSN: [id number] Primary Care Physician: Karrie Phillips MD, MD [...] SpO2 97% Labs Recent Labs Component Name 06/06/2230606/05/22 1232 06/05/22 0458 WBC 8.5 10.0 10.4 HGB 6.7* 7.0* 7.1* HCT 20.8* 20.9* 22.1* PLTCOUNT 254 259 273 Recent Labs Component Name 06/06/227 06/05/22 0458 05/15/22 1352 NA 129* 132* 137 POTASSIUM 4.6* 5.2* 4.6* CL 100 103 103 CO2 22 19* 25 BUN 25 27* 20 CREATININE 1.34* 1.40* 1.53* GLUCOSE 112 107 107 Recent Labs Component Name 06/06/227 02/16/22 0757 MAGNESIUM 1.6 1.8 PHOS 3.2 3.9 No results for input(s): PT, INR in the last 91903 hours. No results for input(s): PTT in the last 35911 hours. Cultures No results found for this or any previous visit (from the past 248 hour(s)). Physical Exam General: Awake, alert, follows commands, in no acute distress Neck: - C-collar/Blackduck J: Present - Tenderness to palpation: Deferred [...] concerns Joey Dickens MD 06/06/2022 8:08 AM ICE WORKER Associated attestation - Deon Taylor MD - 06/06/2022 12:41 PM SERVICE WORKER I have seen and evaluated the patient [...] to allow for safe mobility Outcome: Progressing ICE WORKER * Slim Camacho RN - 06/05/2022 11:00 [...] to allow for safe mobility Outcome: Progressing ICE WORKER * Tammi Perez MD - 06/05/2022 4:34 PM CST Internal Medicine Progress Note Patient: Kandace Cole (:1950) Room: [facility]/ Date of admission: 06/04/2022 No of days [...] results for input(s): MG in the last 03771 hours. Phosphorus: Recent Labs Component Name 02/16/22 0757 PHOS 3.9 Coagulation: No results for input(s): PT, INR, PTT in the last 06390 hours. Micro Microbiology Results (Displays last 21 [...] calcitriol - vitamin D & iPTH ordered #Elver Suarez - Continue home protonix 40mg daily - [...] ? Tammi Perez MD PGY-3 Internal Medicine ICE WORKER Associated attestation - Ama Gonzalez MD - 06/05/2022 8:56 PM SERVICE WORKER I have verified the documentation of the [...] falls and polypharmacy, who was admitted to [facility] 06/04 for a planned cervical-thoracic posterior [...] Rehab Facility Anticipated level of care provider: None Prior to admission level of care: Home Prior to admit provider: None Discharge Goals and Plans: Patient Goals: Rehab Plans: Discharge needs identified. See progress notes for details. Case Management to follow for discharge planning. Upon discharge or transfer to a post acute facility should rehospitalization, home health, rehabilitation, or any other follow up care be required, patient's preference is to stay within the [facility] and its affiliates.: Unsure Comments: Lives with: Other (Comment) (Grandson) Physical Limitations: None Independent with the use of a ww Requires Assistance With: None Preferred Pharmacy: [facility] - [phone] [phone] [id number] Advance Directive: No Advance Directive Information Given: Not Applicable Would you like assistance on completing and executing or revising an Advance Directive?: No Payer/Plan Subscriber Name Rel Member # Group # [facility] MANAGED MEDICARE * KANDACE COLE [id number] [address] [id number] 16 at 4:08 PM 06/05/2022. 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 Yes grandson Patient/Family provided with list of resources? Unknown Preferred Provider / High Quality Network List given?: Unknown Reason for provider choice: Unknown Equipment at Home: Chair-Shower;Grab Bars;Cane-Small Base Quad;Walker-2 Wheeled;Walker-4 Wheeled with Seat List DME pt. requires but does not have.: None Keyseating Machine Set Up Operator Referral: Yes -Placement Will continue to follow. For any questions or needs please contact: Produce Inspector Name/Phone number: Cammy Aleman RN Case senior business development manager: [phone] 06/05/2022 ICE WORKER * Heather Sethi - 06/05/2022 2:44 PM CST Internal Medicine Progress Note Patient: Kandace Cole (:1950) Room: [facility] Date of admission: 06/04/2022 No [...] results for input(s): MG in the last 30694 hours. Phosphorus: Recent Labs Component Name 02/16/22 0757 PHOS 3.9 Coagulation: No results for input(s): PT, INR, PTT in the last 98281 hours. Micro Microbiology Results (Displays last 21 [...] is HDS. Heather Sethi MS3 Internal Medicine ICE WORKER Associated attestation - Ama Gonzalez MD - 06/05/2022 11:04 PM SERVICE WORKER I have verified the documentation of the [...] Achieves restful, refreshing sleep pattern. Outcome: Progressing ICE WORKER * Sandra Brown, PT - 06/05/2022 10:27 AM CST [facility] Physical Medicine and Rehabilitation Physical Therapy Initial Evaluation Note Patient: Kandace Cole [facility] Record Number: [id number] Date of : 1950 Age: [age] year [...] Migraine Ulnar neuropathy Type 2 diabetes mellitus ([facility]/HCC) Type 2 diabetes mellitus with stage 3 chronic kidney disease, without long-term current use of insulin ([facility]) Temporomandibular joint disorder Systemic sclerosis ([facility]/HCC) Sprain of ankle Sciatica Recurrent major depression in remission ([facility]) Raynaud's disease Primary fibromyalgia syndrome Polyp of colon Perineal pain Paronychia of toe of right foot Onychomycosis of toenail 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 Anemia ??? Ferrell's esophagus ??? CKD (chronic kidney disease), stage III ([facility]) ??? Diabetes ??? Disease of esophagus ??? [...] feet with minimal assist and appropriate AD Can Capper Goal(s): Patient to discharge to appropriate next [...] reach, with RNMigdalia, aware. All lines intact. ICE WORKER * Olimpia Adames OT - 06/05/2022 10:22 AM CST [facility] Physical Medicine and Rehabilitation Occupational Therapy Initial Evaluation Note Patient: Kandace Cole Med Record Number: [id number] Date of : 1950 Age: [age] year [...] closed fractures of facial bone, initial encounter ([facility]) Abdominal pain Abnormal serum creatinine level Anemia Ferrell's esophagus Cardiomegaly Chronic kidney disease Chronic obstructive pulmonary disease ([facility]) Chronic depression Dyspnea on exertion Benign essential hypertension Glaucoma Hyperkalemia Hyposmolality Hyperthyroidism Hypothyroidism Intractable chronic migraine without aura Iron deficiency anemia Leukocytosis Macular degeneration Migraine Ulnar neuropathy Type 2 diabetes mellitus ([facility]) Type 2 diabetes mellitus with stage 3 chronic kidney disease, without long-term current use of insulin ([facility]) Temporomandibular joint disorder Systemic sclerosis ([facility]) Sprain of ankle Sciatica Recurrent major depression in remission ([facility]) Raynaud's disease Primary fibromyalgia syndrome Polyp of colon Perineal pain Paronychia of toe of right foot Onychomycosis of toenail 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 Anemia ??? Ferrell's esophagus ??? CKD (chronic kidney disease), stage III ([facility]) ??? Diabetes ??? Disease of esophagus ??? [...] ACTIVITY TOLERANCE: Patient's activity tolerance: fair. Modified [place]: TREATMENT / EDUCATION / INTERVENTIONS: While performing [...] bed to chair with stand by assist [facility] Goal(s): Patient to discharge to appropriate next [...] light within reach, with RN, Migdalia aware. ICE WORKER * Joey Dickens MD - 06/05/2022 6:53 AM CST [facility] Orthopedic Spine Surgery Daily Progress Note Kandace Cole, 72 year old, female : 1950 CSN: [id number] Primary Care Physician: Karrie Phillips MD, MD [...] SpO2 97% Labs Recent Labs Component Name 06/05/2245705/15/22 1352 02/17/22 0612 WBC 10.4 6.6 5.8 HGB 7.1* 9.9* 9.6* HCT 22.1* 30.4* 28.3* PLTCOUNT 273 329 259 Recent Labs Component Name 06/05/2245705/15/22 1352 02/19/22 0429 NA 132* 137 132* POTASSIUM 5.2* 4.6* 4.5 CL 103 103 104 CO2 19* 25 22 BUN 27* 20 18 CREATININE 1.40* 1.53* 1.58* GLUCOSE 107 107 83 Recent Labs Component Name 02/16/22 0757 MAGNESIUM 1.8 PHOS 3.9 No results for input(s): PT, INR in the last 20225 hours. No results for input(s): PTT in the last 97083 hours. Cultures No results found for this or any previous visit (from the past 248 hour(s)). Physical Exam General: Awake, alert, follows commands, in no acute distress Neck: - C-collar/Blackduck J: Present - Tenderness to palpation: Deferred [...] concerns Joey Dickens MD 06/05/2022 6:53 AM ICE WORKER Associated attestation - Deon Taylor MD - 06/05/2022 4:23 PM SERVICE WORKER I have seen and evaluated the patient [...] Achieves restful, refreshing sleep pattern. Outcome: Progressing ICE WORKER * Yaritza Lynch RN - 06/04/2022 2:46 [...] Achieves restful, refreshing sleep pattern. Outcome: Progressing ICE WORKER * Padma Morales MD - 06/04/2022 11:51 [...] Activity: as tolerated from ortho perspective in [place] collar 2. PT/OT 3. Pain Control- oral medications 4. DVT Prophylaxis: ambulation, SCDs 5. Drains? HV x1 6. Continue perioperative ancef 7. Admit to floor under Ortho Spine 8. Please page Ortho Spine with any additional questions or concerns Padma Morales MD 06/04/2022 4:23 PM ICE WORKER documented in this encounter H&P Notes * Padma Mroales MD - 06/04/2022 5:28 AM CST Orthopedic Spine Surgery H&P Note Kandace Cole, 72 year old, female : 1950 CSN: [id number] Diagnosis/Procedures 1.) Cervical myelopathy Today's Date: 06/04/2022 [...] concerns Padma Morales MD 06/04/2022 5:28 AM ICE WORKER Associated attestation - Deon Taylor MD - 06/04/2022 7:15 AM SERVICE WORKER I have seen and evaluated the patient and agree with the resident's assessment and plan as stated above. I have independently reviewed all imaging studies. Deon Taylor MD documented in this encounter Consult Notes * Charissa Murphy - 06/06/2022 4:02 PM CSTAssociated Order(s): IP CONSULT TO CLOCK REPAIRER SW newly assigned and following for placement and disposition. SW acknowledge referral for placement in facility. SW was informed that patient will need rehab. SW made referrals. 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 Weight hx limited; RD noted 6.5% [...] Pain affecting intake: No Estimated Needs: KCAL: 5759-3279 (25-30 kcal/kg ABW) Protein (g): 90 (1.5 [...] Goal Progress: New goal established Ascom: 4533 ICE WORKER * Adolph Juarez, BRADLEY-PORTABLE FEED MILL OPERATOR - 06/04/2022 2:17 PM CSTAssociated Order(s): IP CONSULT TO GERIATRIC MEDICINE GERIATRIC MEDICINE NEW CONSULT NOTE 06/04/2022 2:17 PM Reason for Consult: Geriatric evaluation Consulting Physician and Team: Dr Brandon MEDINA Kandace Candace Douglas is a 72 year old female admitted [...] at bedside. Still groggy after surgery. Reports 5/10 neck pain. Last BM was yesterday. Comprehensive Geriatric Assessment: Social: Lives at home with grandson in [facility]. Does not smoke or drink. Has 1 [...] 200 MG tablet ??? saline nasal spray ([place]; Baby Mckinney) 0.65 % nasal spray RCS: Memory very [...] mouth once daily ??? saline nasal spray ([place]; Baby Mckinney) 0.65 % nasal spray [place] 1 (one) spray into each nostril as [...] Housing Stability: Not on file Family History: [place] Review of Systems: General: denies recent illness [...] input(s): PT, INR, APTT in the last 76251 hours. Cardiac markers: Recent Labs Component Name 02/14/22 2355 TROPONINI 0.027 ASSESSMENT & RECOMMENDATIONS Cervical fusion 06/04 -Postop today doing well. Pain under control [...] Juarez, ANP-, Geriatrics 06/04/2022 2:17 PM Pager: [phone] ICE WORKER Associated attestation - Dorothy Stahl MD - 06/04/2022 10:04 PM SERVICE WORKER I have verified the documentation of the HEALTH AND SAFETY INSTRUCTOR including all history, exam, and medical decision-making [...] Social: Lives at home with grandson in [facility]. Does not smoke or drink. Has 1 [...] (SEROquel) 200 MG tablet saline nasal spray ([place]; Baby Mckinney) 0.65 % nasal spray RCS: Memory very [...] by mouth once daily saline nasal spray ([place]; Baby Mckinney) 0.65 % nasal spray [place] 1 (one) spray into each nostril as needed for Dry Nose 15 mL 0 Current Medications: acetaminophen 650 mg Oral q4h buPROPion SR 12hr 100 mg Oral BID [START ON 06/06/2022] calcitriol 0.25 mcg Oral MON, SAT AND SAT carvedilol 6.25 mg Oral BID ceFAZolin 2 [...] hrs: Temp Pulse Resp BP BP Method 06/04/222033 -- 86 -- 142/61 -- 06/04/221945 97.5 ??F (36.4 ??C) 89 20 141/60 [...] input(s): PT, INR, APTT in the last 39838 hours. Cardiac markers: Recent Labs Component Name [...] senna). -Falls/Aspiration precautions. -Rest of plan per HEALTH AND SAFETY INSTRUCTOR note. Thank you for this consult. We will continue to follow along with you. Please call with questions. Keely Stahl MD Geriatric attending Pager: [phone] documented in this encounter OR Notes * Brief Op Note - Padma Morales MD - 06/04/2022 8:42 AM CST Brief Op Note Procedure: C5-C6 laminectomy, C4-T2 posterior instrumented spinal fusion Patient Name: Kandace Cole Date of Service: 06/04/2022 Pre-Op Diagnosis: cervical myelopathy Post-Op Diagnosis: Same as above Surgeon(s) and Role: * Deon Taylor MD - Primary Ham Pumper(s): Padma Morales MD - Resident - Assisting Blayne Maxim, MS4 Anesthesia Type: general ETT Complications: none Findings: C4-T2 posterior instrumented spinal fusion in the setting of previous anterior fusion. Underwent laminectomies at C5-6. EBL: 225 mL Urine Output : 250 mL IV Fluid Intake: Please see anesthesia record Drains: Drain 1 Accordian Right Back (Active) Specimen(s): * No specimens in log * Implant(s): Implant Name Type Inv. Item Serial No. Cisco Certified Network Associate Lot No. LRB No. Used Action Jean Bone Void 10Ml Dbm Grftn Algrf Ptty Jean Bone Void 10Ml Dbm Grftn Algrf Ptty Medtronic Inc [id number] N/A 1 Implanted Jean Bone Void 10Ml Dbm Grftn Algrf Ptty Jean Bone Void 10Ml Dbm Grftn Algrf Ptty Medtronic Inc [id number] N/A 1 Implanted Graft Bone Canc 4-9.5Mm 15Cc Frzdr Chp Graft Bone Canc 4-9.5Mm 15Cc Frzdr Chp Allosource [id number]/A 1 Implanted Graft Bone Canc 4-9.5Mm 30Cc Algrf Frzdr Graft Bone Canc 4-9.5Mm 30Cc Algrf Frzdr Allosource [id number] N/A 1 Implanted 3.5 x 14mm screw Synthes Spine N/A 4 Implanted 4.0x 20mm screw Synthes Spine N/A 2 Implanted 5.0 x 24mm screw Synthes Spine N/A 2 Implanted 4.5 x 26mm screw Synthes Spine N/A 2 Implanted screw caps Synthes Spine N/A 10 Implanted 90mm rods Agent Ace Spine N/A 2 Implanted Padma Morales MD ICE WORKER * Operative - Deon Taylor MD - 06/04/2022 8:42 AM CST Kandace Cole 1950 Date of Surgery 06/04/22 PREOPERATIVE DIAGNOSIS: cervical myelopathy POSTOPERATIVE DIAGNOSIS: same PROCEDURES: 1. Cervical Laminectomy C5/6 with partial medial facetectomies (07839) 2. Posterior Arthrodesis C4-T2 (10040, 55184f6) 3. Posterior instrumentation C4-T2 (63723) 4. Application of local autograft and allograft (, 22583) 5. Application and removal of cranial tongs () SURGEON: Deon Taylor MD APPLIED COMPUTER SCIENCE PROFESSOR: Varun Matute MD ANESTHESIA: General. COMPLICATIONS: None. [...] for further surgery, blood clots, PE, stroke, IN,paralysis, . After we reviewed of the risks [...] the appropriate lines and leads were placed Naik-Hunton Oil tongs were positioned over the center rotation [...] ligaments between C4-5 and C6-7. Burs were then used to create troughs at the lamina lateral mass junction bilaterally of C5 and C6. Towel clamps were then carefully applied to the spinous processes of C5 and C6 and gently pulled posteriorly while a Hugheston and Kerrison 2 were used to divide the ligamentum [...] wound was once again copiously irrigated. Rods of the appropriate length were selected and carefully contoured to sit within the tulips of the screws.The rods were then secured to the screws using set caps which were final tightened using the manufacturerer's torque limiting wrench. A bur was used to decorticate the exposed surface of the lateral masses and in particular the C5-6 facet joints. A rongeur was used to remove the spinous process of C7 and T1 to allow for better wound [...] collar was placed and the patient was carefullyrolled back in the hospital bed where her Naik-Wells tongs were removed and she was extubated without complication and rolled to PACU in stable condition. I was present for all critical portions of the surgical procedure. Neuromonintoring MEPs and SSEPs remained stable throughout. Deon Taylor MD ICE WORKER documented in this encounter Plan of Treatment Upcoming Encounters Date Type Department Care Team (Late st Contact Info) Description 06/02/2024 1:45 PM SERVICE WORKER Office Visit [facility] - Orthopedics [address] [place] [phone] Deon Taylor MD [facility] [place] [address] documented as of this encounter Procedures Procedure Name Priority Date/Time Associated Diagnosis Comments XR THORACIC SPINE 2VW Routine 07/18/2022 11:04 AM CDT Degeneration of cervical intervertebral disc GLUCOSE - POINT OF CARE Routine 06/08/2022 7:47 AM SERVICE WORKER CBC W/O DIFFERENTIAL Routine 06/08/2022 2:13 AM SERVICE WORKER Degeneration of cervical intervertebral disc BASIC METABOLIC PANEL (CALCIUM TOTAL) Routine 06/08/2022 2:13 AM SERVICE WORKER Degeneration of cervical intervertebral disc PHOSPHORUS BLOOD Routine 06/08/2022 2:13 AM SERVICE WORKER MAGNESIUM BLOOD Routine 06/08/2022 2:13 AM SERVICE WORKER GLUCOSE - POINT OF CARE Routine 06/07/2022 11:25 PM SERVICE WORKER GLUCOSE - POINT OF CARE Routine 06/07/2022 9:31 PM SERVICE WORKER GLUCOSE - POINT OF CARE Routine 06/07/2022 5:52 PM SERVICE WORKER GLUCOSE - POINT OF CARE Routine 06/07/2022 12:00 PM SERVICE WORKER GLUCOSE - POINT OF CARE Routine 06/07/2022 8:21 AM SERVICE WORKER CBC W/O DIFFERENTIAL Routine 06/07/2022 2:24 AM SERVICE WORKER Degeneration of cervical intervertebral disc BASIC METABOLIC PANEL (CALCIUM TOTAL) Routine 06/07/2022 2:24 AM SERVICE WORKER Degeneration of cervical intervertebral disc PHOSPHORUS BLOOD Routine 06/07/2022 2:24 AM SERVICE WORKER MAGNESIUM BLOOD Routine 06/07/2022 2:24 AM SERVICE WORKER GLUCOSE - POINT OF CARE Routine 06/06/2022 8:38 PM SERVICE WORKER GLUCOSE - POINT OF CARE Routine 06/06/2022 5:02 PM SERVICE WORKER GLUCOSE - POINT OF CARE Routine 06/06/2022 12:26 PM SERVICE WORKER TRANSFUSE RED BLOOD CELL LEUKOREDUCED UNIT(S) Routine 06/06/2022 9:42 AM SERVICE WORKER PREPARE RBC LEUKOREDUCED UNIT Routine 06/06/2022 9:36 AM SERVICE WORKER GLUCOSE - POINT OF CARE Routine 06/06/2022 8:00 AM SERVICE WORKER PTH INTACT W/O CALCIUM AM Draw 06/06/2022 3:07 AM SERVICE WORKER HEMOGLOBIN A1C Routine 06/06/2022 3:07 AM SERVICE WORKER VITAMIN D 25-HYDROXY AM Draw 06/06/2022 3:07 AM SERVICE WORKER CBC W/O DIFFERENTIAL Routine 06/06/2022 3:07 AM SERVICE WORKER Degeneration of cervical intervertebral disc BASIC METABOLIC PANEL (CALCIUM TOTAL) Routine 06/06/2022 3:07 AM SERVICE WORKER Degeneration of cervical intervertebral disc PHOSPHORUS BLOOD Routine 06/06/2022 3:07 AM SERVICE WORKER MAGNESIUM BLOOD Routine 06/06/2022 3:07 AM SERVICE WORKER FOLATE Routine 06/06/2022 3:07 AM SERVICE WORKER VITAMIN B12 AM Draw 06/06/2022 3:07 AM SERVICE WORKER IRON + TRANSFERRIN PANEL Routine 06/06/2022 3:07 AM SERVICE WORKER FERRITIN Routine 06/06/2022 3:07 AM SERVICE WORKER GLUCOSE - POINT OF CARE Routine 06/05/2022 8:51 PM SERVICE WORKER GLUCOSE - POINT OF CARE Routine 06/05/2022 5:59 PM SERVICE WORKER GLUCOSE - POINT OF CARE Routine 06/05/2022 4:27 PM SERVICE WORKER GLUCOSE - POINT OF CARE Routine 06/05/2022 12:37 PM SERVICE WORKER CBC W/O DIFFERENTIAL Timed 06/05/2022 12:32 PM SERVICE WORKER XR CERVICAL SPINE 2 OR 3VW Routine 06/05/2022 9:35 AM SERVICE WORKER Degeneration of cervical intervertebral disc GLUCOSE - POINT OF CARE Routine 06/05/2022 8:39 AM SERVICE WORKER CBC W/O DIFFERENTIAL Routine 06/05/2022 4:58 AM SERVICE WORKER Degeneration of cervical intervertebral disc BASIC METABOLIC PANEL (CALCIUM TOTAL) Routine 06/05/2022 4:58 AM SERVICE WORKER Degeneration of cervical intervertebral disc GLUCOSE - POINT OF CARE Routine 06/04/2022 8:20 PM SERVICE WORKER GLUCOSE - POINT OF CARE Routine 06/04/2022 11:51 AM SERVICE WORKER FL JOSÉ LUIS SURGERY STAT 06/04/2022 11:30 AM SERVICE WORKER Degeneration of cervical intervertebral disc FUSION POSTERIOR CERVICAL (PCF) 06/04/2022 8:42 AM SERVICE WORKER Cervical myelopathy (HCC) Case Notes LATEX ALLERGY Special Needs PRONE, C-ARM CERVICAL ATTACHMENT JULIETH DONALD NEURO MONITORING POWER:4mm jose, 4mm cutter, 2mm cutter DEPUY: DELILAH MCGINNIS [phone]; [place] [phone]--reps notified mk 06/01 GLUCOSE - POINT OF CARE Routine 06/04/2022 6:39 AM SERVICE WORKER TYPE + SCREEN PANEL MARLEE 06/04/2022 6:39 AM SERVICE WORKER Preop examination documented in this encounter Results [...] MD on 07/18/2022 11:31 AM Lyla Blackwell APRN-PORTABLE FEED MILL OPERATOR DIAGNOSTIC IMAG ING ORDERABLES * GLUCOSE - POINT OF CARE (06/08/2022 7:47 AM SERVICE WORKER) Glucose WB/POC 95 70 - 115 mg/dL 06/08/2022 7:48 AM SERVICE WORKER [facility] Specimen Type Arterial 06/08/2022 7:48 AM SERVICE WORKER [facility] Blood BLOOD SPECIMEN / Unknown 06/08/2022 7:47 AM SERVICE WORKER 06/08/2022 7:48 AM SERVICE WORKER Ama Gonzalez MD LAB - POINT OF C ARE ORDERABLES [address] [address], [facility] [phone] * (ABNORMAL) PHOSPHORUS BLOOD (06/08/2022 2:13 AM SERVICE WORKER) Phosphorus 2.5(L) 2.9 - 5.1 mg/dL 06/08/2022 3:12 AM SERVICE WORKER [facility] Blood BLOOD SPECIMEN / Unknown Lab Venipuncture / Unknown 06/08/2022 2:13 AM SERVICE WORKER 06/08/2022 2:44 AM SERVICE WORKER Ama Gonzalez MD LAB - CHEMISTRY ORDERABLES [address] [address], [facility] [phone] * MAGNESIUM BLOOD (06/08/2022 2:13 AM SERVICE WORKER) Pathologist [facility] Magnesium 1.7 1.6 - 2.6 mg/dL 06/08/2022 3:12 AM [facility] Blood BLOOD SPECIMEN / Unknown Lab Venipuncture / Unknown 06/08/2022 2:13 AM SERVICE WORKER 06/08/2022 2:44 AM SERVICE WORKER Ama Gonzalez MD LAB - CHEMISTRY ORDERABLES Performing Organization Address City/[facility]/ZIP Co de Phone Number [address] [address], [facility] [phone] * (ABNORMAL) CBC W/O DIFFERENTIAL (06/08/2022 2:13 AM SERVICE WORKER) WBC 9.2 3.5 - 10.5 10? 3 /uL 06/08/2022 2:54 AM [facility] RBC 2.64(L) 3.80 - 5.20 10? 6 /uL 06/08/2022 2:54 AM [facility] Hemoglobin 7.9(L) 12.0 - 15.6 g/dL 06/08/2022 2:54 AM [facility] Hematocrit 23.9(L) 35.0 - 45.0 % 06/08/2022 2:54 AM [facility] MCV 90.5 80.7 - 98.3 fL 06/08/2022 2:54 AM [facility] MCH 29.9 26.7 - 34.0 pg 06/08/2022 2:54 AM [facility] MCHC 33.1 30.8 - 35.9 g/dL 06/08/2022 2:54 AM [facility] RDW-SD 44.6 36.0 - 50.0 fL 06/08/2022 2:54 AM [facility] RDW-CV 13.4 11.2 - 14.8 % 06/08/2022 2:54 AM [facility] Platelet Count 287 150 - 400 10? 3 /uL 06/08/2022 2:54 AM [facility] MPV 10.1 9.4 - 12.9 fL 06/08/2022 2:54 AM [facility] nRBC Absolute 0.00 0 10? 3 /uL 06/08/2022 2:54 AM [facility] nRBC Auto 0.0 0 /100 WBC 06/08/2022 2:54 AM [facility] Blood BLOOD SPECIMEN / Unknown Lab Venipuncture / Unknown 06/08/2022 2:13 AM SERVICE WORKER 06/08/2022 2:43 AM [facility] Deon Taylor MD LAB - HEMATOLOGY ORD ERABLES [facility] [address] [place] [address], [facility] [phone] * (ABNORMAL) BASIC METABOLIC PANEL (CALCIUM TOTAL) (06/08/2022 2:13 AM SERVICE WORKER) BUN 25 7 - 26 mg/dL 06/08/2022 3:12 AM [facility] Creatinine 1.30(H) 0.56 - 0.96 mg/dL 06/08/2022 3:12 AM [facility] Sodium 132(L) 136 - 145 mmol/L 06/08/2022 3:12 AM [facility] Potassium 5.4(H) 3.5 - 4.5 mmol/L 06/08/2022 3:12 AM [facility] Chloride 97(L) 98 - 107 mmol/L 06/08/2022 3:12 AM [facility] CO2 24 22 - 29 mmol/L 06/08/2022 3:12 AM [facility] Glucose 97 70 - 115 mg/dL 06/08/2022 3:12 AM [facility] Calcium 8.4 8.4 - 10.2 mg/dL 06/08/2022 3:12 AM [facility] Anion Gap 16 8 - 18 06/08/2022 3:12 AM [facility] BUN/Creatinine Ratio 19 7 - 23 06/08/2022 3:12 AM [facility] Osmolality Calculated 278 270 - 300 mOsm/kg 06/08/2022 3:12 AM [facility] eGFR by CKD-EPI 44(L) >=90 mL/min/1.7 3 m2 06/08/2022 3:12 AM [facility] Blood BLOOD SPECIMEN / Unknown Lab Venipuncture / Unknown 06/08/2022 2:13 AM SERVICE WORKER 06/08/2022 2:44 AM SERVICE WORKER Deon Taylor MD LAB - CHEMISTRY CHELO QUIGLEY [address] [address], [place] [phone] * GLUCOSE - POINT OF CARE (06/07/2022 11:25 PM SERVICE WORKER) Glucose WB/POC 94 70 - 115 mg/dL 06/08/2022 4:12 PM [facility] Specimen Type Cap Fingerstick 2022 4:12 PM [facility] Blood BLOOD SPECIMEN / Unknown 06/07/2022 11:25 PM SERVICE WORKER 06/08/2022 4:12 PM SERVICE WORKER Ama Gonzalez MD LAB - POINT OF C ARE ORDERABLES [address] [address], [place] [phone] * GLUCOSE - POINT OF CARE (06/07/2022 9:31 PM SERVICE WORKER) Glucose WB/POC 82 70 - 115 mg/dL 06/07/2022 9:36 PM [facility] Specimen Type Cap Fingerstick 2022 9:36 PM [facility] Blood BLOOD SPECIMEN / Unknown 06/07/2022 9:31 PM SERVICE WORKER 06/07/2022 9:36 PM SERVICE WORKER Ama Gonzalez MD LAB - POINT OF ARE ORDERABLES [address] [address], [place] [phone] * GLUCOSE - POINT OF CARE (06/07/2022 5:52 PM SERVICE WORKER) Glucose WB/POC 103 70 - 115 mg/dL 06/07/2022 5:52 PM SERVICE WORKER [facility] Specimen Type Arterial 06/07/2022 5:52 PM SERVICE WORKER [facility] Blood BLOOD SPECIMEN / Unknown 06/07/2022 5:52 PM SERVICE WORKER 06/07/2022 5:52 PM SERVICE WORKER Ama Gonzalez MD LAB - POINT OF ARE ORDERABLES [address] [address], [place] [phone] * (ABNORMAL) GLUCOSE - POINT OF CARE (06/07/2022 12:00 PM SERVICE WORKER) Glucose WB/POC 153(H) 70 - 115 mg/dL 06/07/2022 12:04 PM SERVICE WORKER [facility] Specimen Type Cap Fingerstick 2022 12:04 PM SERVICE WORKER [facility] Blood BLOOD SPECIMEN / Unknown 06/07/2022 12:00 PM SERVICE WORKER 06/07/2022 12:04 PM SERVICE WORKER Ama Gonzalez MD LAB - POINT OF ARE ORDERABLES [address] [address], [place] [phone] * GLUCOSE - POINT OF CARE (06/07/2022 8:21 AM SERVICE WORKER) Glucose WB/POC 91 70 - 115 mg/dL 06/07/2022 8:24 AM SERVICE WORKER [facility] Specimen Type Cap Fingerstick 2022 8:24 AM [facility] Blood BLOOD SPECIMEN / Unknown 06/07/2022 8:21 AM SERVICE WORKER 06/07/2022 8:24 AM SERVICE WORKER Ama Gonzalez MD LAB - POINT OF C ARE ORDERABLES [address] [address], [place] [phone] * (ABNORMAL) PHOSPHORUS BLOOD (06/07/2022 2:24 AM SERVICE WORKER) Phosphorus 2.7(L) 2.9 - 5.1 mg/dL 06/07/2022 3:34 AM SERVICE WORKER [facility] Blood BLOOD SPECIMEN / Unknown Lab Venipuncture / Unknown 06/07/2022 2:24 AM SERVICE WORKER 06/07/2022 3:01 AM SERVICE WORKER Ama Gonzalez MD LAB - CHEMISTRY ORDERABLES Performing Organization Address [facility] Co de Phone Number [address] [address], [place] [phone] * MAGNESIUM BLOOD (06/07/2022 2:24 AM SERVICE WORKER) Magnesium 2.1 1.6 - 2.6 mg/dL 06/07/2022 3:34 AM SERVICE WORKER [facility] Blood BLOOD SPECIMEN / Unknown Lab Venipuncture / Unknown 06/07/2022 2:24 AM SERVICE WORKER 06/07/2022 3:01 AM SERVICE WORKER Ama Gonzalez MD LAB - CHEMISTRY ORDERABLES Performing Organization Address City/[facility]/ZIP Co de Phone Number [address] [address], [place] [phone] * (ABNORMAL) CBC W/O DIFFERENTIAL (06/07/2022 2:24 AM SERVICE WORKER) WBC 11.8(H) 3.5 - 10.5 10? 3 /uL 06/07/2022 3:19 AM [facility] RBC 2.85(L) 3.80 - 5.20 10? 6 /uL 06/07/2022 3:19 AM [facility] Hemoglobin 8.5(L) 12.0 - 15.6 g/dL 06/07/2022 3:19 AM [facility] Hematocrit 25.2(L) 35.0 - 45.0 % 06/07/2022 3:19 AM [facility] MCV 88.4 80.7 - 98.3 fL 06/07/2022 3:19 AM [facility] MCH 29.8 26.7 - 34.0 pg 06/07/2022 3:19 AM [facility] MCHC 33.7 30.8 - 35.9 g/dL 06/07/2022 3:19 AM [facility] RDW-SD 43.3 36.0 - 50.0 fL 06/07/2022 3:19 AM [facility] RDW-CV 13.2 11.2 - 14.8 % 06/07/2022 3:19 AM [facility] Platelet Count 291 150 - 400 10? 3 /uL 06/07/2022 3:19 AM [facility] MPV 10.0 9.4 - 12.9 fL 06/07/2022 3:19 AM [facility] nRBC Absolute 0.00 0 10? 3 /uL 06/07/2022 3:19 AM [facility] nRBC Auto 0.0 0 /100 WBC 06/07/2022 3:19 AM [facility] Blood BLOOD SPECIMEN / Unknown Lab Venipuncture / Unknown 06/07/2022 2:24 AM SERVICE WORKER 06/07/2022 3:01 AM [facility] Deon Taylor MD LAB - HEMATOLOGY ORD ERABLES [facility] [address] [place] [address], [facility] [phone] * (ABNORMAL) BASIC METABOLIC PANEL (CALCIUM TOTAL) (06/07/2022 2:24 AM SERVICE WORKER) BUN 25 7 - 26 mg/dL 06/07/2022 3:34 AM [facility] Creatinine 1.26(H) 0.56 - 0.96 mg/dL 06/07/2022 3:34 AM [facility] Sodium 130(L) 136 - 145 mmol/L 06/07/2022 3:34 AM [facility] Potassium 5.3(H) 3.5 - 4.5 mmol/L 06/07/2022 3:34 AM [facility] Chloride 102 98 - 107 mmol/L 06/07/2022 3:34 AM [facility] CO2 24 22 - 29 mmol/L 06/07/2022 3:34 AM [facility] Glucose 121(H) 70 - 115 mg/dL 06/07/2022 3:34 AM [facility] Calcium 8.8 8.4 - 10.2 mg/dL 06/07/2022 3:34 AM [facility] Anion Gap 9 8 - 18 06/07/2022 3:34 AM [facility] BUN/Creatinine Ratio 20 7 - 23 06/07/2022 3:34 AM [facility] Osmolality Calculated 276 270 - 300 mOsm/kg 06/07/2022 3:34 AM [facility] eGFR by CKD-EPI 45(L) >=90 mL/min/1.7 3 m2 06/07/2022 3:34 AM [facility] Blood BLOOD SPECIMEN / Unknown Lab Venipuncture / Unknown 06/07/2022 2:24 AM SERVICE WORKER 06/07/2022 3:01 AM [facility] Deon Taylor MD LAB - CHEMISTRY CHELO QUIGLEY [facility] Organization Address City/State/ZIP Co de Phone Number [facility] [address] [place] [address], [facility] [phone] * (ABNORMAL) GLUCOSE - POINT OF CARE (06/06/2022 8:38 PM SERVICE WORKER) Pathologist [facility] Glucose WB/POC 137(H) 70 - 115 mg/dL 06/06/2022 8:39 PM SERVICE WORKER [facility] Specimen Type Cap Fingerstick 2022 8:39 PM SERVICE WORKER [facility] Blood BLOOD SPECIMEN / Unknown 06/06/2022 8:38 PM SERVICE WORKER 06/06/2022 8:39 PM SERVICE WORKER Ama Gonzalez MD LAB - POINT OF C ARE ORDERABLES [address] [address], [place] [phone] * (ABNORMAL) GLUCOSE - POINT OF CARE (06/06/2022 5:02 PM SERVICE WORKER) Glucose WB/POC 241(H) 70 - 115 mg/dL 06/06/2022 5:03 PM SERVICE WORKER [facility] Specimen Type Arterial 06/06/2022 5:03 PM SERVICE WORKER [facility] Blood BLOOD SPECIMEN / Unknown 06/06/2022 5:02 PM SERVICE WORKER 06/06/2022 5:03 PM SERVICE WORKER Ama Gonzalez MD LAB - POINT OF ARE ORDERABLES [address] [address], [place] [phone] * (ABNORMAL) GLUCOSE - POINT OF CARE (06/06/2022 12:26 PM SERVICE WORKER) Glucose WB/POC 165(H) 70 - 115 mg/dL 06/06/2022 12:27 PM SERVICE WORKER [facility] Specimen Type Arterial 06/06/2022 12:27 PM SERVICE WORKER [facility] Blood BLOOD SPECIMEN / Unknown 06/06/2022 12:26 PM SERVICE WORKER 06/06/2022 12:27 PM SERVICE WORKER Ama Gonzalez MD LAB - POINT OF C ARE ORDERABLES [address] [place] [address], [facility] [phone] * TRANSFUSE RED BLOOD CELL LEUKOREDUCED UNIT(S) (06/06/2022 12:20 PM SERVICE WORKER) Ama Gonzalez MD NURSING - BLOOD PROD TRANSFUSION * TRANSFUSE RED BLOOD CELL LEUKOREDUCED UNIT(S), 1 Units (06/06/2022 12:20 PM SERVICE WORKER) Ama Gonzalez MD NURSING - BLOOD PROD TRANSFUSION * PREPARE (CROSSMATCH) RBC UNIT(S), 1 Units (06/06/2022 9:36 AM SERVICE WORKER) Unit Description AS1 LR PRBC [facility] Unit ABO A [facility] Unit Rh POS [facility] Product [facility] R02 [facility] Unit Donor # [id number] [facility] Unit Status transfused [facility] Product Code [id number] [facility] Blood Type Barcode 6200 [facility] Expiration Date [id number] [facility] Blood Bank BLOOD SPECIMEN / Unknown 06/04/2022 6:44 AM SERVICE WORKER Ama Gonzalez MD LAB - BLOOD BANK ORDERABLES [facility] [place] [address], [facility] [phone] * (ABNORMAL) GLUCOSE - POINT OF CARE (06/06/2022 8:00 AM SERVICE WORKER) Glucose WB/POC 125(H) 70 - 115 mg/dL 06/06/2022 8:01 AM SERVICE WORKER [facility] Specimen Type Arterial 06/06/2022 8:01 AM SERVICE WORKER [facility] Blood BLOOD SPECIMEN / Unknown 06/06/2022 8:00 AM SERVICE WORKER 06/06/2022 8:01 AM SERVICE WORKER Ama Gonzalez MD LAB - POINT OF C ARE ORDERABLES [address] [address], [facility] [phone] * PHOSPHORUS BLOOD (06/06/2022 3:07 AM SERVICE WORKER) Pathologist [facility] Phosphorus 3.2 2.9 - 5.1 mg/dL 06/06/2022 4:03 AM [facility] Blood BLOOD SPECIMEN / Unknown Lab Venipuncture / Unknown 06/06/2022 3:07 AM SERVICE WORKER 06/06/2022 3:29 AM SERVICE WORKER Ama Gonzalez MD LAB - CHEMISTRY ORDERABLES [address] [address], [facility] [phone] * MAGNESIUM BLOOD (06/06/2022 3:07 AM SERVICE WORKER) Pathologist [facility] Magnesium 1.6 1.6 - 2.6 mg/dL 06/06/2022 4:03 AM [facility] Blood BLOOD SPECIMEN / Unknown Lab Venipuncture / Unknown 06/06/2022 3:07 AM SERVICE WORKER 06/06/2022 3:29 AM SERVICE WORKER Ama Gonzalez MD LAB - CHEMISTRY ORDERABLES Performing Organization Address City/[facility]/ZIP Co de Phone Number [address] [address], [facility] [phone] * (ABNORMAL) CBC W/O DIFFERENTIAL (06/06/2022 3:07 AM SERVICE WORKER) WBC 8.5 3.5 - 10.5 10? 3 /uL 06/06/2022 3:32 AM [facility] RBC 2.26(L) 3.80 - 5.20 10? 6 /uL 06/06/2022 3:32 AM [facility] Hemoglobin 6.7(L) 12.0 - 15.6 g/dL 06/06/2022 3:32 AM [facility] Hematocrit 20.8(L) 35.0 - 45.0 % 06/06/2022 3:32 AM [facility] MCV 92.0 80.7 - 98.3 fL 06/06/2022 3:32 AM [facility] MCH 29.6 26.7 - 34.0 pg 06/06/2022 3:32 AM [facility] MCHC 32.2 30.8 - 35.9 g/dL 06/06/2022 3:32 AM [facility] RDW-SD 43.7 36.0 - 50.0 fL 06/06/2022 3:32 AM [facility] RDW-CV 13.2 11.2 - 14.8 % 06/06/2022 3:32 AM [facility] Platelet Count 254 150 - 400 10? 3 /uL 06/06/2022 3:32 AM [facility] MPV 9.7 9.4 - 12.9 fL 06/06/2022 3:32 AM [facility] nRBC Absolute 0.00 0 10? 3 /uL 06/06/2022 3:32 AM [facility] nRBC Auto 0.0 0 /100 WBC 06/06/2022 3:32 AM [facility] Blood BLOOD SPECIMEN / Unknown Lab Venipuncture / Unknown 06/06/2022 3:07 AM SERVICE WORKER 06/06/2022 3:29 AM [facility] Deon Taylor MD LAB - HEMATOLOGY ORD ERABLES [facility] [address] [place] [address], [facility] [phone] * (ABNORMAL) BASIC METABOLIC PANEL (CALCIUM TOTAL) (06/06/2022 3:07 AM [facility]) BUN 25 7 - 26 mg/dL 06/06/2022 4:03 AM [facility] Creatinine 1.34(H) 0.56 - 0.96 mg/dL 06/06/2022 4:03 AM [facility] Sodium 129(L) 136 - 145 mmol/L 06/06/2022 4:03 AM [facility] Potassium 4.6(H) 3.5 - 4.5 mmol/L 06/06/2022 4:03 AM [facility] Chloride 100 98 - 107 mmol/L 06/06/2022 4:03 AM [facility] CO2 22 22 - 29 mmol/L 06/06/2022 4:03 AM [facility] Glucose 112 70 - 115 mg/dL 06/06/2022 4:03 AM [facility] Calcium 8.9 8.4 - 10.2 mg/dL 06/06/2022 4:03 AM [facility] Anion Gap 12 8 - 18 06/06/2022 4:03 AM [facility] BUN/Creatinine Ratio 19 7 - 23 06/06/2022 4:03 AM [facility] Osmolality Calculated 273 270 - 300 mOsm/kg 06/06/2022 4:03 AM [facility] eGFR by CKD-EPI 42(L) >=90 mL/min/1.7 3 m2 06/06/2022 4:03 AM [facility] Blood BLOOD SPECIMEN / Unknown Lab Venipuncture / Unknown 06/06/2022 3:07 AM SERVICE WORKER 06/06/2022 3:29 AM SERVICE WORKER Deon Taylor MD LAB - CHEMISTRY ORDE SORAIDA [address] [address], [place] [phone] * FOLATE (06/06/2022 3:07 AM SERVICE WORKER) Folate 9.4 7.0 - 31.4 ng/mL 06/06/2022 4:35 AM [facility] Blood BLOOD SPECIMEN / Unknown Lab Venipuncture / Unknown 06/06/2022 3:07 AM SERVICE WORKER 06/06/2022 3:29 AM SERVICE WORKER Ama Gonzalez MD LAB - CHEMISTRY ORDERABLES Performing Organization Address City/[facility]/ZIP Co de Phone Number [address] [address], [place] [phone] * VITAMIN B12 (06/06/2022 3:07 AM SERVICE WORKER) Vitamin B12 382 213 - 816 pg/mL 06/06/2022 4:35 AM [facility] Blood BLOOD SPECIMEN / Unknown Lab Venipuncture / Unknown 06/06/2022 3:07 AM SERVICE WORKER 06/06/2022 3:29 AM SERVICE WORKER Ama Gonzalez MD LAB - CHEMISTRY ORDERABLES [address] [address], [facility] [phone] * FERRITIN (06/06/2022 3:07 AM SERVICE WORKER) Ferritin 94 13 - 204 ng/mL 06/06/2022 4:10 AM [facility] Blood BLOOD SPECIMEN / Unknown Lab Venipuncture / Unknown 06/06/2022 3:07 AM SERVICE WORKER 06/06/2022 3:25 AM SERVICE WORKER Ama Gonzalez MD LAB - CHEMISTRY ORDERABLES Performing Organization Address City/[facility]/ZIP Co de Phone Number [address] [address], [place] [phone] * (ABNORMAL) IRON + TRANSFERRIN PANEL (06/06/2022 3:07 AM SERVICE WORKER) Iron 20(L) 40 - 150 ug/dL 06/06/2022 3:53 AM [facility] Transferrin 162(L) 174 - 382 mg/dL 06/06/2022 3:53 AM [facility] Transferrin Saturation % 10(L) 16 - 50 % 06/06/2022 3:53 AM [facility] TIBC Calculated 203(L) 240 - 450 ug/dL 06/06/2022 3:53 AM [facility] Blood BLOOD SPECIMEN / Unknown Lab Venipuncture / Unknown 06/06/2022 3:07 AM SERVICE WORKER 06/06/2022 3:25 AM SERVICE WORKER Ama Gonzalez MD LAB - CHEMISTRY ORDERABLES Performing Organization Address City/[facility]/ZIP Co de Phone Number [address] [address], [facility] [phone] * HEMOGLOBIN A1C (06/06/2022 3:07 AM SERVICE WORKER) Hemoglobin A1c 5.3 <=5.6 % 06/06/2022 3:38 PM [facility] Estimated Average Glucose 105 mg/dL 06/06/2022 3:38 PM [facility] Comment: HbA1c Interpretation: Normal : < 5.7% Pre-diabetes: 5.7-6.4% Diabetes: Equal to or greater than 6.5% Test results diagnostic of diabetes should be repeated for confirmation. Treatment target values recommended by ADA and other clinical organizations should be used to evaluate metabolic control in patients. Reference: [place] [employer], Standards of Care in Diabetes -2020 In patients 70 years and older consider HbA1c target range of 7.0-7.5% (Reference: Oswaldo Liz et al. JAMDA. 2012) The Sebia assay for the measurement of HbA1c is a National Glycohemoglobin Standardization Program (NGSP) certified method. Blood BLOOD SPECIMEN / Unknown Lab Venipuncture / Unknown 06/06/2022 3:07 AM SERVICE WORKER 06/06/2022 3:28 AM SERVICE WORKER Ama Gonzalez MD LAB - CHEMISTRY ORDERABLES [address] [address], [facility] [phone] * PTH INTACT W/O CALCIUM (06/06/2022 3:07 AM SERVICE WORKER) PTH Intact 72.1 8.0 - 77.0 pg/mL 06/06/2022 4:04 AM [facility] Blood BLOOD SPECIMEN / Unknown Lab Venipuncture / Unknown 06/06/2022 3:07 AM SERVICE WORKER 06/06/2022 3:32 AM SERVICE WORKER Deon Taylor MD LAB - CHEMISTRY CHELO QUIGLEY Performing Organization Address [facility]/ZIP Co de Phone Number [facility] [address] [place] [address], [place] [phone] * VITAMIN D 25-HYDROXY (06/06/2022 3:07 AM SERVICE WORKER) Pathologist [facility] Vitamin D, 25 Hydroxy 53.0 30.0 - 80.0 ng/mL 06/06/2022 4:35 AM SERVICE WORKER [facility] Comment: The recommendations for 25-Hydroxy Vitamin D [...] Lab Venipuncture / Unknown 06/06/2022 3:07 AM SERVICE WORKER 06/06/2022 3:29 AM SERVICE WORKER Deon Taylor MD LAB - CHEMISTRY CHELO QUIGLEY Performing Organization Address [facility]/ZIP Co de Phone Number [facility] [address] [place] [address], [place] [phone] * (ABNORMAL) GLUCOSE - POINT OF CARE (06/05/2022 8:51 PM SERVICE WORKER) Pathologist [facility] Glucose WB/POC 152(H) 70 - 115 mg/dL 06/05/2022 8:52 PM SERVICE WORKER [facility] Specimen Type Cap Fingerstick 2022 8:52 PM SERVICE WORKER [facility] Blood BLOOD SPECIMEN / Unknown 06/05/2022 8:51 PM SERVICE WORKER 06/05/2022 8:52 PM SERVICE WORKER Ama Gonzalez MD LAB - POINT OF ARE ORDERABLES [address] [address], [place] [phone] * (ABNORMAL) GLUCOSE - POINT OF CARE (06/05/2022 5:59 PM SERVICE WORKER) Glucose WB/POC 185(H) 70 - 115 mg/dL 06/05/2022 6:02 PM [facility] Specimen Type Cap Fingerstick 2022 6:02 PM SERVICE WORKER [facility] Blood BLOOD SPECIMEN / Unknown 06/05/2022 5:59 PM SERVICE WORKER 06/05/2022 6:02 PM SERVICE WORKER Aam Gonzalez MD LAB - POINT OF ARE ORDERABLES Performing Organization Address City/[facility]/ZIP Co de Phone Number [address] [address], [place] [phone] * (ABNORMAL) GLUCOSE - POINT OF CARE (06/05/2022 4:27 PM SERVICE WORKER) Glucose WB/POC 208(H) 70 - 115 mg/dL 06/05/2022 4:28 PM SERVICE WORKER [facility] Specimen Type Arterial 06/05/2022 4:28 PM SERVICE WORKER [facility] Blood BLOOD SPECIMEN / Unknown 06/05/2022 4:27 PM SERVICE WORKER 06/05/2022 4:28 PM SERVICE WORKER Ama Gonzalez MD LAB - POINT OF C ARE ORDERABLES [address] [address], [place] [phone] * (ABNORMAL) GLUCOSE - POINT OF CARE (06/05/2022 12:37 PM SERVICE WORKER) Pathologist [facility] Glucose WB/POC 163(H) 70 - 115 mg/dL 06/05/2022 12:37 PM [facility] Specimen Type Arterial 06/05/2022 12:37 PM [facility] Blood BLOOD SPECIMEN / Unknown 06/05/2022 12:37 PM SERVICE WORKER 06/05/2022 12:37 PM SERVICE WORKER Ama Gonzalez MD LAB - POINT OF ARE ORDERABLES [facility] [address] [place] [address], [facility] [phone] * (ABNORMAL) CBC W/O DIFFERENTIAL (06/05/2022 12:32 PM SERVICE WORKER) [facility] WBC 10.0 3.5 - 10.5 10? 3 /uL 06/05/2022 12:45 PM [facility] RBC 2.31(L) 3.80 - 5.20 10? 6 /uL 06/05/2022 12:45 PM [facility] Hemoglobin 7.0(L) 12.0 - 15.6 g/dL 06/05/2022 12:45 PM [facility] Hematocrit 20.9(L) 35.0 - 45.0 % 06/05/2022 12:45 PM [facility] MCV 90.5 80.7 - 98.3 fL 06/05/2022 12:45 PM [facility] MCH 30.3 26.7 - 34.0 pg 06/05/2022 12:45 PM [facility] MCHC 33.5 30.8 - 35.9 g/dL 06/05/2022 12:45 PM [facility] RDW-SD 43.0 36.0 - 50.0 fL 06/05/2022 12:45 PM [facility] RDW-CV 13.2 11.2 - 14.8 % 06/05/2022 12:45 PM [facility] Platelet Count 259 150 - 400 10? 3 /uL 06/05/2022 12:45 PM [facility] MPV 9.5 9.4 - 12.9 fL 06/05/2022 12:45 PM [facility] nRBC Absolute 0.00 0 10? 3 /uL 06/05/2022 12:45 PM [facility] nRBC Auto 0.0 0 /100 WBC 06/05/2022 12:45 PM [facility] Blood BLOOD SPECIMEN / Unknown Lab Venipuncture / Unknown 06/05/2022 12:32 PM SERVICE WORKER 06/05/2022 12:37 PM SERVICE WORKER Ama Gonzalez MD LAB - HEMATOLOGY ORDERABLES [facility] [address] [place] [id number], [facility] [phone] * XR CERVICAL SPINE 2 OR 3VW (06/05/2022 9:35 AM SERVICE WORKER) Anatomical Region Laterality Modality Spine Radiographic Vivian ging 06/05/2022 11:4 5 AM SERVICE WORKER Impressions 06/05/2022 3:11 PM SERVICE WORKER IMPRESSION: Interval posterior spinal fusion of C4-T2. Poor delineation of the spine in this region in lateral projection. Report drafted by Jon Arias MD (radiology nurse) I, Kamila Barber MD have personally reviewed and interpreted this examination/study. > Interpreting Provider: Kamila Barber MD on 06/05/2022 3:11 PM Narrative 06/05/2022 3:11 PM SERVICE WORKER PROCEDURE: ??XR CERVICAL SPINE 2 OR 3VW, DATE/TIME OF EXAM: ??06/05/2022 9:37 AM, LOCATION ??[facility] INDICATION: M50.30: Degeneration of cervical intervertebral [...] 3VW, DATE/TIME OF EXAM: 39:37 AM, LOCATION [facility] INDICATION: M50.30: Degeneration of cervical intervertebral [...] projection. Report drafted by Jon Arias MD (radiology nurse) I, Kamila Barber MD have personally reviewed and interpreted this examination/study. > Interpreting Provider: Kamila Barber MD on 06/05/2022 3:11 PM Lyla Blackwell STAFF RESEARCH SCIENTIST-PORTABLE FEED MILL OPERATOR DIAGNOSTIC IMAG ING ORDERABLES * GLUCOSE - POINT OF CARE (06/05/2022 8:39 AM SERVICE WORKER) Glucose WB/POC 109 70 - 115 mg/dL 06/05/2022 8:40 AM SERVICE WORKER [facility] Specimen Type Arterial 06/05/2022 8:40 AM SERVICE WORKER [facility] Blood BLOOD SPECIMEN / Unknown 06/05/2022 8:39 AM SERVICE WORKER 06/05/2022 8:40 AM SERVICE WORKER Deon Taylor MD LAB - POINT OF CARE ORDERABLES [facility] [address] [place] [address], [facility] [phone] * (ABNORMAL) CBC W/O DIFFERENTIAL (06/05/2022 4:58 AM SERVICE WORKER) WBC 10.4 3.5 - 10.5 10? 3 /uL 06/05/2022 5:27 AM [facility] RBC 2.41(L) 3.80 - 5.20 10? 6 /uL 06/05/2022 5:27 AM [facility] Hemoglobin 7.1(L) 12.0 - 15.6 g/dL 06/05/2022 5:27 AM [facility] Hematocrit 22.1(L) 35.0 - 45.0 % 06/05/2022 5:27 AM [facility] MCV 91.7 80.7 - 98.3 fL 06/05/2022 5:27 AM [facility] MCH 29.5 26.7 - 34.0 pg 06/05/2022 5:27 AM [facility] MCHC 32.1 30.8 - 35.9 g/dL 06/05/2022 5:27 AM [facility] RDW-SD 43.3 36.0 - 50.0 fL 06/05/2022 5:27 AM [facility] RDW-CV 13.1 11.2 - 14.8 % 06/05/2022 5:27 AM [facility] Platelet Count 273 150 - 400 10? 3 /uL 06/05/2022 5:27 AM [facility] MPV 9.8 9.4 - 12.9 fL 06/05/2022 5:27 AM [facility] nRBC Absolute 0.00 0 10? 3 /uL 06/05/2022 5:27 AM [facility] nRBC Auto 0.0 0 /100 WBC 06/05/2022 5:27 AM [facility] Blood BLOOD SPECIMEN / Unknown Lab Venipuncture / Unknown 06/05/2022 4:58 AM SERVICE WORKER 06/05/2022 5:16 AM SERVICE WORKER Deon Taylor MD LAB - HEMATOLOGY ORD ERABLES [facility] [address] [place] [address], [facility] [phone] * (ABNORMAL) BASIC METABOLIC PANEL (CALCIUM TOTAL) (06/05/2022 4:58 AM SERVICE WORKER) BUN 27(H) 7 - 26 mg/dL 06/05/2022 5:43 AM [facility] Creatinine 1.40(H) 0.56 - 0.96 mg/dL 06/05/2022 5:43 AM [facility] Sodium 132(L) 136 - 145 mmol/L 06/05/2022 5:43 AM [facility] Potassium 5.2(H) 3.5 - 4.5 mmol/L 06/05/2022 5:43 AM [facility] Chloride 103 98 - 107 mmol/L 06/05/2022 5:43 AM [facility] CO2 19(L) 22 - 29 mmol/L 06/05/2022 5:43 AM [facility] Glucose 107 70 - 115 mg/dL 06/05/2022 5:43 AM [facility] Calcium 8.5 8.4 - 10.2 mg/dL 06/05/2022 5:43 AM [facility] Anion Gap 15 8 - 18 06/05/2022 5:43 AM [facility] BUN/Creatinine Ratio 19 7 - 23 06/05/2022 5:43 AM [facility] Osmolality Calculated 280 270 - 300 mOsm/kg 06/05/2022 5:43 AM [facility] eGFR by CKD-EPI 40(L) >=90 mL/min/1.7 3 m2 06/05/2022 5:43 AM [facility] Blood BLOOD SPECIMEN / Unknown Lab Venipuncture / Unknown 06/05/2022 4:58 AM SERVICE WORKER 06/05/2022 5:17 AM SERVICE WORKER Deon Taylor MD LAB - CHEMISTRY CHELO QUIGLEY Performing Organization Address City/[facility]/ZIP Co de Phone Number [address] [address], [place] [phone] * (ABNORMAL) GLUCOSE - POINT OF CARE (06/04/2022 8:20 PM SERVICE WORKER) Glucose WB/POC 120(H) 70 - 115 mg/dL 06/04/2022 8:21 PM SERVICE WORKER [facility] Specimen Type Cap Fingerstick 2022 8:21 PM SERVICE WORKER [facility] Blood BLOOD SPECIMEN / Unknown 06/04/2022 8:20 PM SERVICE WORKER 06/04/2022 8:21 PM SERVICE WORKER Deon Taylor MD LAB - POINT OF CARE ORDERABLES Performing Organization Address [facility]/ZIP Co de Phone Number [address] [address], [place] [phone] * GLUCOSE - POINT OF CARE (06/04/2022 11:51 AM SERVICE WORKER) Glucose WB/POC 111 70 - 115 mg/dL 06/04/2022 11:56 AM SERVICE WORKER [facility] Specimen Type Cap Fingerstick 2022 11:56 AM SERVICE WORKER [facility] Blood BLOOD SPECIMEN / Unknown 06/04/2022 11:51 AM SERVICE WORKER 06/04/2022 11:55 AM SERVICE WORKER Deon Taylor MD LAB - POINT OF CARE ORDERABLES Performing Organization Address City/[facility]/ZIP Co de Phone Number [address] [address], [place] [phone] * [place] JOSÉ LUIS SURGERY (06/04/2022 11:30 AM SERVICE WORKER) Narrative [facility] - 06/04/2022 12:52 PM SERVICE WORKER Fluoroscopy was used for this exam in the OR. Please see the Operative report. Deon Taylor MD FLUOROSCOPY ORDERABL ES Performing Organization Address City/[facility]/ZIP Co de Phone Number [facility] * (ABNORMAL) GLUCOSE - POINT OF CARE (06/04/2022 6:39 AM SERVICE WORKER) Glucose WB/POC 130(H) 70 - 115 mg/dL 06/05/2022 12:40 PM SERVICE WORKER [facility] Specimen Type Venous 06/05/2022 12:40 PM SERVICE WORKER [facility] Blood BLOOD SPECIMEN / Unknown 06/04/2022 6:39 AM SERVICE WORKER 06/05/2022 12:40 PM SERVICE WORKER Deon Taylor MD LAB - POINT OF CARE ORDERABLES Performing Organization Address [facility]/ZIP Co de Phone Number [facility] [address] [place] [address], [place] [phone] * TYPE + SCREEN PANEL (06/04/2022 6:39 AM SERVICE WORKER) Antibody Screen NEG 7:24 AM SERVICE WORKER [facility] ABO Rh A POS 06/04/2022 7:24 AM SERVICE WORKER [facility] Blood Bank BLOOD SPECIMEN / Unknown Venipuncture / Unknown 06/04/2022 6:39 AM SERVICE WORKER 06/04/2022 6:44 AM SERVICE WORKER Provider Unknown LAB - BLOOD BANK ORD ERABLES Performing Organization Address [facility] Co de Phone Number [facility] [address] [place] [address], [place] [phone] documented in this encounter Visit Diagnoses Diagnosis Degeneration of cervical intervertebral disc- Primary Preop examination Preoperative examination, unspecified Cervical myelopathy (HCC) Cervical spondylosis with myelopathy documented in this encounter Administered Medications Inactive Administered Medications - up to 3 most recent administrations Medication Order MAR Action Action Date Dose Rate Site 0.9% NaCl injection 1-10 mL 1-10 mL, [...] 8 hours. $ Given 06/08/2022 8:08 PM SERVICE WORKER 3 mL $ Given 06/08/2022 2:36 PM SERVICE WORKER 3 mL $ Given 06/08/2022 5:08 AM SERVICE WORKER 3 mL acetaminophen (Tylenol) tablet 1,000 mg [...] the MAR. $ Given 06/08/2022 8:07 PM SERVICE WORKER 1,000 mg $ Given 06/08/2022 2:36 PM SERVICE WORKER 1,000 mg $ Given 06/08/2022 9:07 AM SERVICE WORKER 1,000 mg bacitracin topical ointment PRN, Starting on Sat06/04/22 at 0800, Until Sat06/04/22 at 1142, Intra-op $ Given 06/04/2022 8:00 AM SERVICE WORKER 1 g buPROPion SR 12hr (Wellbutrin-SR) tablet 100 mg 100 mg, Oral, 2 TIMES DAILY, First dose on Sat06/04/22 at 1330, Until Discontinued, Do not crush, chew, or cut in half. $ Given 06/08/2022 8:07 PM SERVICE WORKER 100 mg $ Given 06/08/2022 9:07 AM SERVICE WORKER 100 mg $ Given 06/07/2022 8:20 PM SERVICE WORKER 100 mg carvedilol (Coreg) tablet 6.25 mg 6.25 mg, Oral, 2 TIMES DAILY, First dose on Sat06/04/22 at 2100, Until Discontinued, Take with food $ Given 06/08/2022 8:08 PM SERVICE WORKER 6.25 mg $ Given 06/08/2022 9:07 AM SERVICE WORKER 6.25 mg $ Given 06/07/2022 8:20 PM SERVICE WORKER 6.25 mg dextrose 10 % IV bolus [...] Until Discontinued $ Given 06/08/2022 9:07 AM SERVICE WORKER 20 mg $ Given 06/07/2022 8:42 AM SERVICE WORKER 20 mg $ Given 06/06/2022 8:20 AM SERVICE WORKER 20 mg gabapentin (Neurontin) capsule 300 mg 300 mg, Oral, 3 TIMES DAILY, First dose on Sat06/05/22 at 0800, Until Discontinued $ Given 06/08/2022 8:08 PM SERVICE WORKER 300 m g $ Given 06/08/2022 2:36 PM SERVICE WORKER 300 mg $ Given 06/08/2022 9:07 AM SERVICE WORKER 300 mg iron sucrose (Venofer) injection 200 mg 200 mg, Intravenous, DAILY, 5 doses, First dose on Sat06/06/22 at 0930, Last dose on Sat06/10/22 at 0900, May administer up to 200 mg of undiluted solution IVP slowly over 5 minutes $ Given 06/08/2022 9:06 AM SERVICE WORKER 200 mg $ Given 06/07/2022 8:42 AM SERVICE WORKER 200 mg $ Given 06/06/2022 10:37 AM SERVICE WORKER 200 mg latanoprost (Xalatan) 0.005 % ophthalmic solution 1 drop 1 drop, Each Eye, AT BEDTIME, First dose on Sat06/04/22 at 2100, Until Discontinued, Allow at least 5 minutes between administration of multiple ophthalmic products Once opened, store at room temperature $ Given 06/08/2022 8:08 PM SERVICE WORKER 1 drop $ Given 06/07/2022 8:22 PM SERVICE WORKER 1 drop $ Given 06/06/2022 8:27 PM SERVICE WORKER 1 drop lisinopril (Prinivil; Zestril) tablet 20 mg 20 mg, Oral, DAILY, First dose on Sat06/05/22 at 0900, Until Discontinued $ Given 06/08/2022 9:07 AM SERVICE WORKER 20 mg $ Given 06/07/2022 8:41 AM SERVICE WORKER 20 mg $ Given 06/06/2022 8:20 AM SERVICE WORKER 20 mg meclizine (Antivert) tablet 25 mg 25 mg, Oral, 3 TIMES DAILY PRN, Dizziness, Starting on Sat06/07/22 at 0945, Until Sat06/08/22 at 2259 $ Given 06/08/2022 10:50 AM SERVICE WORKER 25 mg $ Given 06/07/2022 1:57 PM SERVICE WORKER 25 mg ondansetron (Zofran) injection 4 mg 4 mg, Intravenous, EVERY 6 HOURS PRN, Nausea/Vomiting, Starting on Sat06/05/22 at 0759, Until Sat06/08/22 at 2259, Administer over 2 to 5 minutes. $ Given 06/06/2022 8:26 PM SERVICE WORKER 4 mg oxyCODONE (immediate release) (Roxicodone) tablet 5 [...] MAR., Post-op $ Given 06/08/2022 10:50 AM SERVICE WORKER 5 mg $ Given 06/06/2022 8:27 PM SERVICE WORKER 5 mg $ Given 06/06/2022 4:57 AM SERVICE WORKER 5 mg pantoprazole EC (Protonix) tablet 40 mg 40 mg, Oral, DAILY, First dose on Sat06/04/22 at 1330, Until Discontinued, Do not crush, chew, or cut in half. $ Given 06/08/2022 9:07 AM SERVICE WORKER 40 mg $ Given 06/07/2022 8:41 AM SERVICE WORKER 40 mg $ Given 06/06/2022 8:20 AM SERVICE WORKER 40 mg polyethylene glycol 3350 (Miralax) packet 17 g 17 g, Oral, DAILY PRN, Constipation, Starting on Sat06/07/22 at 0906, Until Sat06/08/22 at 2259, Mix in 8 ounces of water, juice, soda, coffee or tea prior to administration, Post-op pravastatin (Pravachol) tablet 40 mg 40 mg, Oral, AT BEDTIME, First dose on Sat06/04/22 at 2100, Until Discontinued $ Given 06/08/2022 8:07 PM SERVICE WORKER 40 mg $ Given 06/07/2022 8:20 PM SERVICE WORKER 40 mg $ Given 06/06/2022 8:27 PM SERVICE WORKER 40 mg QUEtiapine (SEROquel) tablet 100 mg 100 mg, Oral, EVERY EVENING, First dose (after last modification) on Sat06/08/22 at 1700, Until Discontinued $ Given 06/08/2022 6:27 PM SERVICE WORKER 100 mg saline nasal spray ([place]; Baby Mckinney) 0.65 % nasal spray 2 spray 2 spray, Each Nostril, EVERY 1 HOUR PRN, Dry Nose, Starting on Sat06/06/22 at 0946, Until Sat06/08/22 at 2259 thrombin (recombinant) (Recothrom) solution PRN, Starting on Sat06/04/22 at 0908, Until Sat06/04/22 at 1142, Intra-op $ Given 06/04/2022 9:08 AM SERVICE WORKER 20,000 Units Back vancomycin (Vancocin) injection PRN, Starting on Sat06/04/22 at 1045, Until Sat06/04/22 at 1142, Indication for anti-infective therapy: Surgical prophylaxis, Intra-op $ Given 06/04/2022 10:45 AM SERVICE WORKER 1,000 mg Back vitamin D3 (Cholecalciferol) 10 MCG (400 UNIT) tablet 800 Units 800 Units, Oral, DAILY, First dose (after last modification) on 06/09/22 at 0900, Until Discontinued, 400 units = 10 mcg documented in this encounter Active and Recently Administered Medications Times are shown in SERVICE WORKER. Scheduled Medication Order 06/06/2022 06/07/2022 06/08/2022 0.9% NaCl injection 3 mL(Linked Group 1) [...] 0907 ($ Given - Provider: Makenzie Choi RN)2006 [...] 0907 ($ Given - Provider: Makenzie Choi RN)2007 ($ Given - Provider: Sammi Zayas RN) escitalopram (Lexapro) tablet 20 mg 20 mg, Oral, DAILY, First dose on Sat06/04/22 at 1330, Until Discontinued 0820 ($ Given - Provider: Makenzie Choi RN) 0842 ($ Given - Provider: SN Anabel) 0907 [...] coffee or tea prior to administration, Post-op 08 ($ Given - Provider: Makenzie [...] modification) on Sat06/06/22 at 0900, Until Discontinued 819 ($ Given - Provider: Makenzie Choi RN) [...] 1 tablet, Oral, DAILY, First dose on Sat23 at 1330, Until Discontinued, Post-op 0820 ($ Given - Provider: Makenzie Choi RN) sodium - potassium phosphates (K Phos Neutral) tablet 2 tablet (COMPLETED) 2 tablet, Oral, ONCE, 1 dose, On Jeanette 06/07/22 at 0900, Contains Phos 8 mmol, K+ [...] Anabel) 1050 ($ Given - Provider: Makenzie Choi RN) ondansetron (Zofran) injection 4 mg 4 [...] Post-op 0457 ($ Given - Provider: Slim Camacho, RN)2026 ($ Given - Provider: Vivian Boo RN) 1050 ($ Given - Provider: Makenzie Choi RN) polyethylene glycol 3350 (Miralax) packet 17 g 17 g, Oral, DAILY PRN, Constipation, Starting on Sat06/07/22 at 0906, Until Sat06/08/22 at 2259, Mix in 8 ounces of water, juice, soda, coffee or tea prior to administration, Post-op saline nasal spray ([place]ropical [place]; Baby Mckinney) 0.65 % nasal spray 2 spray 2 [...] Post-op documented in this encounter Care Teams Fishing Accessories Maker Relationship Specialty Start Date End Date Karrie Phillips MD [address] [place] [address] PCP - General 03/13/22 documented as of this encounter
--- OUTSIDE RECORDS SUMMARY | 2024-04-11 03:31 | XMS_ITS | Encounter Summary ---
Author Organization [facility] Address [address] [address] Care Team Providers Care Pot Builder Name Role Phone Karrie Phillips MD Primary Care Provider [phone] Reason for Visit * Reason Comments Surgical Follow-up Encounter Details Date Type Department Care Team (Late st Contact Info) Description 07/18/2022 10:00 AM CDT Office Visit [facility] - Orth[facility] [address] [place] [address], [place] [address] Deon Taylor MD [address] [place] [address] [phone] S/P cervical spinal fusion (Primary Dx); Status post orthopedic surgery, follow-up exam; Cervical myelopathy (HCC) Social History Tobacco Use Types Packs/Day Years [...] and heating? Not hard at all 06/04/2022 [facility] - Occupational Stress [...] place to sleep or slept in a intermediate (including now)? No 06/04/2022 Sex and Gender [...] * Patient Instructions* Anabell Avendaño RN - 07/18/2022 11:21 AM CDT Kandace Cole 07/18/2022 Follow up: 6 weeks -Attend outpatient PT. Encourage daily exercises and stretching -Wean out of cervical collar -Continue ambulation with walker -Recommend contacting PCP for memory loss concerns Please contact our clinic call center at if you need to schedule or change an appointment. For medical emergencies please call 911. Please contact Anabell Avendaño RN at (previously ) or through [employer] if you have any further questions or concerns. [facility] office contact information: [facility] ([facility]) [address] [place] [address] [place] [address] [facility] [address] [place] [address], [place] [address] July 18, 2022 To Whom It May Concern: Please use this letter to document that Kandace Cole, : 1950, was in to see Deon Taylor MD on 07/18/2022. Thank you. Sincerely, Deon Taylor MD [facility] 1L documented in this encounter Progress Notes * Deon Taylor MD - 07/18/2022 3:01 PM CDT 72-year-old female who is status post C5-C6 laminectomies with C4-T2 fusion for myelopathy in the setting of kyphosis of the cervical spine. She is now about 6 weeks out. At her initial postoperativevisit she presented with acute onset coffee ground emesis and was sent to the emergency department.She was evaluated by the medical team and GI and found to have no obvious or continuous source of GI bleeding. Since then she has not had any recurrence of the symptoms. Overall she reports significant improvement in her neck pain and hand function though she continues to have some balance disturbance and uses a walker to ambulate. Overall she is quite pleased with the results thus far On exam today patient demonstrates 5 out of 5 strength in bilateral upper and lower extremities including deltoids biceps triceps wrist extensors wrist flexors history tutor strength interosseous muscles as well as hip flexors quads hamstrings gastrocs tib ant and EHL. On examination of C5-T1 and L2-S1 dermmarkell franco patient does not endorse any areas of decreased sensation. There is no clonus, no Shy's and no hyperreflexia of their patellar or biceps tendons. X-rays demonstrate stable alignment of cervical spine and appropriate positioning of hardware with no noted hardware complications or signs of hardware failure or loosening Assessment and plan: 72-year-old female 6 weeks out status post C5-C6 decompression with C4-T2 fusion for myelopathy, overall doing very well despite initial issues with coffee-ground emesis. At thispoint she is cleared from her cervical collar and can resume activity as tolerated without activity restrictions. We will give her an order for physical therapy and plan to see her back in 6 weeks tosee how she is doing. documented in this encounter Plan of Treatment Upcoming Encounters Date Type Department Care Team (Late st Contact Info) Description 06/02/2024 1:45 PM RIB BENDER Office Visit [facility] [address] [place] [address], [place] [address] Deon Taylor MD [address] [place] [id number] documented as of this encounter Results * XR CERVICAL SPINE 2 OR 3VW (07/18/2022 11:05 AM CDT) Anatomical Region Laterality Modality Spine [...] Petar Spears MD on 07/18/2022 11:31 AM Deon Taylor MD DIAGNOSTIC IMAGING O RDERABLES documented in this encounter Visit Diagnoses Diagnosis S/P cervical spinal fusion- Primary Arthrodesis status Status post orthopedic surgery, follow-up exam Follow-up examination, following other surgery Cervical myelopathy (HCC) Cervical spondylosis with myelopathy Status post orthopedic surgery, follow-up exam Follow-up examination, following other surgery documented in this encounter Care Teams Pot Builder Relationship Specialty Start Date End Date Karrie Phillips MD [address] [place] [address] PCP - General 03/13/22 documented as of this encounter
--- OUTSIDE RECORDS SUMMARY | 2024-04-11 03:31 | XMS_ITS | Encounter Summary ---
Author Organization [facility] Address [address] [place] [address] Care Team Providers Care Creche Attendant Name Role Phone Karrie Phillips MD Primary Care Provider [phone] Reason for Visit * Reason Comments VOMITING BLOOD Pt arrived via priva Exit[employer] vehicle. Pt states she was encouraged to come here from her clinic appointment today d/t dark red emesis. Pt states she is having increased dizziness with movement and nausea. Pt states she is chilling. * Auth/Cert (Routine) Specialty Diagnoses / Procedures Referred By Everardo fried Referred To Contact Referral ID Status Reason Start Date Expiration Date Visits Re quested Visits Authorized [id number] 1 1 Encounter Details Date Type Department Care Team (Latest Contact Info) Description 06/20/2022 1:47 PM CDT - 06/23/2022 4:53 PM CDT Hospital Encounter [facility] ACUTE [address] [place] [phone] Adolph Mckinney MD [address] [place] [address] Eduar Mathis MD [address] [phone] [place] [address] [place] [address] Internal Medicine Discharge Disposition: Home Health Care [facility] [place] [facility] Social History Tobacco Use Types Packs/Day Years [...] heating? Not hard at all 06/04/2022 [facility] of Occupat ional Health - Occupational Stress [...] place to sleep or slept in a halfway (including now)? No 06/04/2022 Sex and Gender [...] Hospital Discharge Summary Patient ID: Kandace Cole [id number] 72 year old 1950 Admit date: 06/20/2022 [...] Esophagus, chronic hyponatremia, MDD that presented to [facility] on 06/20 from her follow up appointment with her spine surgeon for staple removal with rapid onset of 1 day of 10-20 episodes of vomiting and noted some coffee ground emesis at home. No prior previous reported episodes. On arrival to [facility], she was slightly hypertensive, remaining VSS. Labs [...] spine. Report dictated by Yasir Pierre MD (physical therapy resident). Kamila Narvaez MD have personally reviewed and [...] etiology. > Dictated by Sherlyn Hopkins DO (physical therapy resident). IChaim have personally reviewed and interpreted this [...] 0.65 % nasal spray Commonly known as: Androscoggin; Baby Oakman Roff 1 (one) spray into each nostril as needed for Dry Nose vitamin D3 10 MCG (400 UNIT) tablet Commonly known as: Cholecalciferol Take 2 (two) tablets by mouth once daily Where to Get Your Medications These medications were sent to [id number] - [address] [facility] [facility] [address] [facility] [phone] [facility] [address] ?? ondansetron (disintegrating) 4 MG tablet Follow-up Information Karrie Phillips MD . Specialty: Family Medicine Contact information: [address] [place] [address] [facility] [address] Follow up with provider . Discharge Instructions Kandace R Douglas, HOSPITAL COURSE: You were admitted for nausea [...] care provider. If you need to call [facility] for any reason, you may reach us at [phone] and dial 0 for the shredded filler cutter operator. If you have any questions about your medications, please be sure to ask the pharmacy when you pickers material handlers your prescription. You may also call your [...] reschedule the appointment. Thanks! Internal Medicine Department [place] [address] [place] [address] Signed: Anabell Hernandez PA-C 06/23/2022 Time spent [...] care provider. If you need to call [facility] for any reason, you may reach us at [phone] and dial 0 for the shredded filler cutter operator. If you have any questions about your medications, please be sure to ask the pharmacy when you pickers material handlers your prescription. You may also call your [...] reschedule the appointment. Thanks! Internal Medicine Department [address] [address] documented in this encounter Medications at Time [...] mouth every evening 06/08/2022 saline nasal spray (Androscoggin; Baby Oakman) 0.65 % nasal spray Roff 1 (one) spray into each nostril as [...] refreshing sleep pattern. Outcome: Progressing * Katelyn Arciniega OT - 06/22/2022 3:35 PM CDT [facility] Department of Physical Medicine & Rehabilitation Progress Note Patient: Kandace Cole [facility] Record Number: [id number] Date of : 1950 Age: [age] year old Per PT, the patient is independent with ADLs and functional mobility, no skilled OT indicated. D/C OT. * Ange Whitman, PT - 06/22/2022 2:55 PM CDT [facility] Physical Medicine and Rehabilitation Physical Therapy Initial Evaluation Note Patient: Kandace Cole [facility] Record Number: [id number] Date of : 1950 Age: [age] year [...] as Tolerated Spine Precautions: Yes Spine Precautions: [place] DIAGNOSIS: Patient Active Problem List: Degeneration of cervical intervertebral disc Syncope and collapse Trauma Injury of head, initial encounter Fall, initial encounter Multiple closed fractures of facial bone, initial encounter (CMS/HCC) Abdominal pain Abnormal serum creatinine level Anemia Heredia's esophagus Cardiomegaly Chronic kidney disease Chronic obstructive pulmonary disease (CMS/[facility]) Chronic depression Dyspnea on exertion Benign essential hypertension Glaucoma Hyperkalemia Hyposmolality Hyperthyroidism Hypothyroidism Intractable chronic migraine without aura Iron deficiency anemia Leukocytosis Macular degeneration Migraine Ulnar neuropathy Type 2 diabetes mellitus (CMS/[facility]) Type 2 diabetes mellitus with stage [...] to have w/c after neck surgery. riaz.) Inspector Raw Quartz issued to pt. Pt has bed rails. [...] Friends/Family How often is assistance provided?: daily, grandson does shopping and laundry in basement Activity [...] activity this date. Bed Mobility: Rolling: Modified [place] Supine to Sit: Modified [place] with HOB in semi-fowlers position Sit to Supine: Modified [place] Pt has bed wedge at home to elevate head. Transfers: Sit to Stand: Complete [place] Stand to Sit: Complete [place] Bed to Chair: Complete [place] Type of Transfer: Stand Pivot Transfer Transfer Device: Gait belt;Walker-2 Wheeled Gait: Weight Bearing Status: (WBAT x4 in aspen collar) Distance Ambulated: 125 FEET Ambulation: Assistive Device: Gait Belt;Walker-2 Wheeled Ambulation: Level of Assistance: Modified [place] Ambulation: Gait Deviations: (normal) Balance: Balance Scales/Tests [...] neck surgery. Equipment Issued: gait belt and bilingual social worker Plan: Plan: Discontinue IP PT If patient is discharged from the facility, this note serves as a discharge summary if further physical therapy visits did not occur. Refer to filed flowsheet for further details. Following therapy session, patient left in patient bedside chair, with call light within reach, with RN, Mark Anthony aware, with therapy cues visible on [...] spine. Report dictated by Yasir Pierre MD (physical therapy resident). Kamila Narvaez MD have personally reviewed and [...] etiology. > Dictated by Sherlyn Hopkins DO (physical therapy resident). Chaim Narvaez have personally reviewed and interpreted [...] questions/concerns. Naif Tenorio MD Internal Medicine, PGY-1 [facility] Associated attestation - Ike Mcpherson MD - 06/22/2022 10:15 AM CDT I have personally seen and examined this patient. I agree with the house carpenter's findings, assessment and plan as outlined. In [...] ??? glucose (Diabetic Use) oral gel Oral PROri Stanley PA-C ??? glucose chew tablet 4 tablet [...] spine. Report dictated by Yasir Pierre MD (physical therapy resident). Kamila Narvaez MD have personally reviewed and [...] etiology. > Dictated by Sherlyn Hopkins DO (physical therapy resident). 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 Home when medically clear. Lives with: Other (Comment) (Grandson) Physical Limitations: None Requires Assistance With: None Preferred Pharmacy: [facility] [address] [place] [id number] READMISSION RISK SCORE is 20* at 4:42 PM 06/21/2022. Pt LYNNETTE in procedure, chart reviewed. Family Support (name and phone): Extended Emergency Contact Information Primary Emergency Contact: BARBARA CISNEROS Mobile Relation: Brother Secondary Emergency Contact: Barbara Cisneros Address: [place], [place] Relation: Other Patient or banking representative requests care coordination reach out to family or caregiver listed above regarding discharge planning and at time of discharge? No Equipment at Home: Chair-Shower;Grab Bars;Cane-Small Base Quad;Walker-2 Wheeled;Walker-4 Wheeled with Seat Loss Prevention/Safety District Manager Referral: No Will continue to follow. For any questions or needs please contact: Laboratory Animal Facility Supervisor Name/Phone number: Krystle Guerrero RN [phone] * Ori Iyer PA-C - 06/21/2022 10:19 AM CDT It is fine to remove C collar for patient's EGD. This was approved by Orthopedics (per GI). Ori Iyer PA-C * Ori Iyer PA-C - 06/21/2022 8:53 AM CDT Hospitalist Daily Progress Note Name: Kandace Cole Age: [age] year old Room: [facility]/ Date Admitted: 06/20/2022 Total duration of encounter: [...] Mckinney MD 100 mLat 06/20/22 1646 ??? lactated ringers infusion Intravenous [...] spine. Report dictated by Yasir Pierre MD (physical therapy resident). IKamila MD have personally reviewed and interpreted this [...] etiology. > Dictated by Sherlyn Hopkins DO (physical therapy resident). Chaim Narvaez have personally reviewed and interpreted [...] continue amlodipine 5 mg daily (started at [facility]) T2DM Hypoglycemia likely 2/2 NPO vs recent [...] Start 06/20/221832 SEQUENTIAL COMPRESSION DEVICE (IMPLEMENT) CONTINUOUS 06/20/221844 PT/OT Consulted No Diet DIET NPO Except: NO EXCEPTIONS Consult(s) None PCP Karrie Phillips MD, MD Code Full Code DC Dispo Inpatient Ori Iyer PA-C Feel free to text page me through [employer] Date of service: 06/21/2022 Attending Physician: Abeba Will DO * Leobardo Chisholm RN - 06/21/2022 12:24 AM CDT RN called [facility] for infusion channel. * Leobardo Chisholm RN - 06/20/2022 11:21 PM CDT RN called [employer] for SCD pump and Alaris brain w/ channel. * Leobardo Chisholm RN - 06/20/2022 11:00 PM [facility] Brain to bedside. [facility] did not have channel. [facility] stated [facility] would be back to [...] Dickens MD - 06/20/2022 2:38 PM CDT [facility] Daily Progress Note Kandace Cole, 72 year old, female : 1950 CSN: [id number] Primary Care Physician: Karrie Phillips MD, MD [...] Recent Labs Component Name 06/20/22 0949 06/08/22 0213 06/07/22 0224 NA 128* 132* 130* POTASSIUM 4.3 5.4* [...] results for input(s): PTT in the last 24498 hours. Cultures No results found for this or any previous visit (from the past 248 hour(s)). Physical Exam General: Awake, alert, follows commands, ill appearing Neck: - C-collar/Woodruff J: Present - Dressing: clean and dry [...] initial encounter ([facility]) Abdominal pain Abnormal serum creatinine level Anemia Heredia's esophagus Cardiomegaly Chronic kidney disease Chronic obstructive pulmonary disease ([facility]) Chronic depression Dyspnea on exertion Benign essential hypertension Glaucoma Hyperkalemia Hyposmolality Hyperthyroidism Hypothyroidism Intractable chronic migraine without aura Iron deficiency anemia Leukocytosis Macular degeneration Migraine Ulnar neuropathy Type 2 diabetes mellitus ([facility]) Type 2 diabetes mellitus with stage 3 chronic kidney disease, without long-term current use of insulin ([facility]) Temporomandibular joint disorder Systemic sclerosis ([facility]) Sprain of ankle Sciatica Recurrent major depression in remission ([facility]) Raynaud's disease Primary fibromyalgia syndrome Polyp of colon Perineal pain Paronychia of toe of right foot Onychomycosis of toenail Nonexudative 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 Nausea Multiple bruises Mixed hyperlipidemia Mixed collagen vascular disease ([facility]) Shortness of breath Abdominal pain, left upper [...] eyes every 4 hours as needed 02/19/22 Rahda Flores PA-C buPROPion SR 12hr (Wellbutrin-SR) 100 [...] mg tablet 1 po tid prn 07/13/21 Dinesh Mccormick MD pantoprazole EC (Protonix) 40 MG tablet Take 1 (one) tablet by mouth once daily 02/20/22 Radha Flores PA-C pravastatin (Pravachol) 40 MG tablet pravastatin 40 mg tablet TAKE 1 TABLET BY MOUTH DAILY Provider, MD Dinesh QUEtiapine (SEROquel) 100 MG tablet Take 1 (one) tablet by mouth every evening 06/08/22 Tammi Perez MD saline nasal spray (Androsc[place]; Baby Oakman) 0.65 % nasal spray Roff 1 (one) spray into each nostril as [...] spine. Report dictated by Yasir Pierre MD (physical therapy resident). I, Kamila Barber MD have personally reviewed [...] year old female with a history of Hreedia's esophagus, iron deficiency anemia, HTN, T2DM, CKD, [...] most recent endoscopic evaluation was 12/2022 in [place]. States at that time there was continued [...] of insulin ([facility]/HCC) Temporomandibular joint disorder Systemic sclerosis (CMS/HCC) Sprain [...] mouth every evening ??? saline nasal spray ([place]; Baby Oakman) 0.65 % nasal spray Roff 1 (one) spray into each nostril as [...] Labs: Recent Labs Component Name 06/21/22 0203 06/20/228 06/20/22 1405 06/20/22 0949 06/08/22 0213 06/07/22 0224 WBC 8.0 - 9.5 11.8* 9.2 11.8* HGB 8.3* 8.5* 9.3* 9.0* 7.9* 8.5* MCV 93.5 - 89.9 91.7 90.5 88.4 INR - - 1.0 - - - Recent Labs Component Name 06/21/22 0203 06/20/22 0949 06/08/22 021 NA 134* 128* 132* CL 96* 93* [...] spine. Report dictated by Yasir Pierre MD (physical therapy resident). Kamila Narvaez MD have personally reviewed and [...] etiology. > Dictated by Sherlyn Hopkins DO (physical therapy resident). IChaim have personally reviewed and interpreted this examination/study. > Interpreting Provider: Chaim Martins on 06/20/2022 10:47 PM Procedures: Prior endoscopies notable for remote EGD hx of Heredia's esophagus in 2019. States most recent endoscopic evaluation was 12/2022 in [place]. States at that time there was continued [...] 162, trans % sat 10, TIBC 203, hykwmxin41, folate 9.4, B12 382. No s/s of [...] AM cortisol to evaluate adrenal function, no long winder tender steroid use per history.TSH from 02/16/2022 wnl. [...] questions. Naif Tenorio MD Internal Medicine, PGY-1 [facility] Associated attestation - Ike Mcpherson MD - 06/21/2022 11:56 AM CDT I have personally seen and examined this patient. I agree with the house carpenter's findings, assessment and plan as outlined. In [...] - 06/20/2022 2:45 PM CDT Kandace Cole [id number] [facility] EM[facility] History Chief Complaint Patient presents with ??? VOMITING BLOOD Pt arrived via private vehicle. Pt states she was encouraged to come here from her clinic appointment today d/t dark red emesis. Pt states she is having increased dizziness with movement and nausea. Pt states she is chilling. HPI Kandace Cole is a 72 year old [...] mouth every evening ??? saline nasal spray ([place]rosc[place]; Baby Oakman) 0.65 % nasal spray Roff 1 (one) spray into each nostril as [...] and medical decision making; and I had rxzw-ff-bilc time with this patient. I have conducted [...] DATE/TIME OF EXAM: 06/20/2022 3:13 PM, LOCATION [facility] INDICATION: R42: Dizziness R06.02: Shortness of [...] spine. Report dictated by Yasir Pierre MD (physical therapy resident). I, Kamila Barber MD have personally reviewed and interpreted this examination/study. > Interpreting Provider: Kamila Barber MD on 06/20/2022 4:25 PM XR CHEST 2VW Final Result PROCEDURE: XR CHEST 2VW, DATE/TIME OF EXAM: 06/20/2022 3:03 PM, LOCATION [facility] INDICATION: R06.02: Shortness of breath ADDITIONAL [...] heads. Report dictated by Yasir Pierre MD (physical therapy resident). I, Haroldo Ball MD have personally reviewed [...] mg (40 mg Intravenous $ Given 06/20/22 8297) Procedures None ED COURSE Patient seen and [...] and medical decision making; and I had lcxb-fe-kqid time with this patient. I have conducted [...] mouth every evening ??? saline nasal spray ([place]rosc[place]; Baby Oakman) 0.65 % nasal spray Roff 1 (one) spray into each nostril as [...] st Contact Info) Description 06/02/2024 1:45 PM PRODUCTION SUPPORT CONSULTANT Office Visit [facility] - Orthopedics [address] [place] [address], [facility] [place] [phone] Deon Taylor MD [address] [place] [address] Scheduled Orders Name Type Priority Associated Diagnoses [...] 06/21/2022 4:40 PM CDT Coffee ground emesis DC ESOPHAGEAL CAPSULE ENDOSCOPY 06/21/2022 4:37 PM CDT Coffee ground emesis DC ED EGD FLEX TRANSORAL DX 06/21/2022 4:37 [...] CBC W/O DIFFERENTIAL (06/23/2022 3:47 AM CDT) WBC 7.7 3.5 - 10.5 10? 3 /uL 06/23/2022 4:17 AM [facility] RBC 2.66(L) 3.80 - 5.20 10? 6 /uL 06/23/2022 4:17 AM [facility] Hemoglobin 8.0(L) 12.0 - 15.6 g/dL 06/23/2022 4:17 AM [facility] Hematocrit 24.2(L) 35.0 - 45.0 % 06/23/2022 4:17 AM [facility] MCV 91.0 80.7 - 98.3 fL 06/23/2022 4:17 AM [facility] MCH 30.1 26.7 - 34.0 pg 06/23/2022 4:17 AM [facility] MCHC 33.1 30.8 - 35.9 g/dL 06/23/2022 4:17 AM [facility] RDW-SD 45.0 36.0 - 50.0 fL 06/23/2022 4:17 AM [facility] RDW-CV 13.7 11.2 - 14.8 % 06/23/2022 4:17 AM [facility] Platelet Count 305 150 - 400 10? 3 /uL 06/23/2022 4:17 AM [facility] MPV 9.7 9.4 - 12.9 fL 06/23/2022 4:17 AM [facility] nRBC Absolute 0.00 0 10? 3 /uL 06/23/2022 4:17 AM [facility] nRBC Auto 0.0 0 /100 WBC 06/23/2022 4:17 AM [facility] Blood BLOOD SPECIMEN / Unknown Lab Venipuncture / Unknown 06/23/2022 3:47 AM CDT 06/23/2022 4:10 AM CDT Ori Iyer PA-C LAB - HEMATOLOGY OR DERABLES Performing Organization Address [facility]/ZIP Co de Phone Number [address] [address], [facility] [phone] * MAGNESIUM BLOOD (06/23/2022 3:06 AM CDT) Magnesium 2.3 1.6 - 2.6 mg/dL 06/23/2022 4:41 AM T [facility] Blood BLOOD SPECIMEN / Unknown Lab Venipuncture / Unknown 06/23/2022 3:06 AM CDT 06/23/2022 4:03 AM CDT Anabell Hernandez PA-C LAB - CHEMISTRY ORD ERABLES Performing Organization Address City/[facility]/ZIP Co de Phone Number [address] [address], [facility] [phone] * (ABNORMAL) BASIC METABOLIC PANEL (CALCIUM TOTAL) (06/23/2022 3:06 AM CDT) BUN 10 7 - 26 mg/dL 06/23/2022 4:38 AM [facility] Creatinine 1.09(H) 0.56 - 0.96 mg/dL 06/23/2022 4:38 AM [facility] Sodium 131(L) 136 - 145 mmol/L 06/23/2022 4:38 AM [facility] Potassium 4.2 3.5 - 4.5 mmol/L 06/23/2022 4:38 AM [facility] Chloride 100 98 - 107 mmol/L 06/23/2022 4:38 AM [facility] CO2 22 22 - 29 mmol/L 06/23/2022 4:38 AM [facility] Glucose 111 70 - 115 mg/dL 06/23/2022 4:38 AM [facility] Calcium 8.2(L) 8.4 - 10.2 mg/dL 06/23/2022 4:38 AM CDT [facility] Anion Gap 13 8 - 18 06/23/2022 4:38 AM T [facility] BUN/Creatinine Ratio 9 7 - 23 06/23/2022 4:38 AM T [facility] Osmolality Calculated 272 270 - 300 mOsm/kg 06/23/2022 4:38 AM T [facility] eGFR by CKD-EPI 54(L) >=90 mL/min/1.7 3 m2 06/23/2022 4:38 AM CDT [facility] Blood BLOOD SPECIMEN / Unknown Lab Venipuncture / Unknown 06/23/2022 3:06 AM CDT 06/23/2022 4:03 AM CDT Anabell Hernandez PA-C LAB - CHEMISTRY ORD ERABLES Performing Organization Address City/[facility]/ZIP Co de Phone Number [address] [address], [facility] [phone] * GLUCOSE - POINT OF CARE (06/22/2022 4:11 PM CDT) Glucose WB/POC 105 70 - 115 mg/dL 06/22/2022 4:12 PM CDT [facility] Specimen Type Arterial 06/22/2022 4:12 PM CDT [facility] Blood BLOOD SPECIMEN / Unknown 06/22/2022 4:11 PM CDT 06/22/2022 4:12 PM CDT Abeba Will DO LAB - POINT OF CARE ORDERABLES [address] [address], [place] [phone] * (ABNORMAL) GLUCOSE - POINT OF CARE (06/22/2022 11:18 AM CDT) Glucose WB/POC 180(H) 70 - 115 mg/dL 06/22/2022 11:19 AM T [facility] Specimen Type Cap Fingerstick 2022 11:19 AM CDT [facility] Blood BLOOD SPECIMEN / Unknown 06/22/2022 11:18 AM CDT 06/22/2022 11:19 AM CDT Abeba Will DO LAB - POINT OF CARE ORDERABLES [facility] [address] [place] [address], [facility] [phone] * (ABNORMAL) CBC W/O DIFFERENTIAL (06/22/2022 2:34 AM CDT) WBC 9.1 3.5 - 10.5 10? 3 /uL 06/22/2022 3:11 AM [facility] RBC 2.70(L) 3.80 - 5.20 10? 6 /uL 06/22/2022 3:11 AM [facility] Hemoglobin 8.0(L) 12.0 - 15.6 g/dL 06/22/2022 3:11 AM [facility] Hematocrit 24.2(L) 35.0 - 45.0 % 06/22/2022 3:11 AM [facility] MCV 89.6 80.7 - 98.3 fL 06/22/2022 3:11 AM [facility] MCH 29.6 26.7 - 34.0 pg 06/22/2022 3:11 AM [facility] MCHC 33.1 30.8 - 35.9 g/dL 06/22/2022 3:11 AM [facility] RDW-SD 44.2 36.0 - 50.0 fL 06/22/2022 3:11 AM [facility] RDW-CV 13.5 11.2 - 14.8 % 06/22/2022 3:11 AM [facility] Platelet Count 358 150 - 400 10? 3 /uL 06/22/2022 3:11 AM [facility] MPV 9.2(L) 9.4 - 12.9 fL 06/22/2022 3:11 AM [facility] nRBC Absolute 0.00 0 10? 3 /uL 06/22/2022 3:11 AM [facility] nRBC Auto 0.0 0 /100 WBC 06/22/2022 3:11 AM CDT [facility] Blood BLOOD SPECIMEN / Unknown Lab Venipuncture / Unknown 06/22/2022 2:34 AM CDT 06/22/2022 3:01 AM CDT Ori Iyer PA-C LAB - HEMATOLOGY OR DERABLES Performing Organization Address City/[facility]/ZIP Co de Phone Number [address] [address], [facility] [phone] * (ABNORMAL) MAGNESIUM BLOOD (06/22/2022 2:34 AM CDT) Magnesium 1.5(L) 1.6 - 2.6 mg/dL 06/22/2022 3:29 AM T [facility] Blood BLOOD SPECIMEN / Unknown Lab Venipuncture / Unknown 06/22/2022 2:34 AM CDT 06/22/2022 3:02 AM CDT Ori Iyer PA-C LAB - CHEMISTRY ORD ERABLES Performing Organization Address City/[facility]/ZIP Co de Phone Number [address] [address], [facility] [phone] * (ABNORMAL) RENAL FUNCTION PANEL (06/22/2022 2:34 AM CDT) BUN 13 7 - 26 mg/dL 06/22/2022 3:29 AM T [facility] Creatinine 1.07(H) 0.56 - 0.96 mg/dL 06/22/2022 3:29 AM [facility] Sodium 132(L) 136 - 145 mmol/L 06/22/2022 3:29 AM T [facility] Potassium 3.8 3.5 - 4.5 mmol/L 06/22/2022 3:29 AM [facility] Chloride 99 98 - 107 mmol/L 06/22/2022 3:29 AM T [facility] CO2 25 22 - 29 mmol/L 06/22/2022 3:29 AM [facility] Glucose 126(H) 70 - 115 mg/dL 06/22/2022 3:29 AM [facility] Albumin 2.8(L) 3.4 - 5.0 g/dL 06/22/2022 3:29 AM [facility] Calcium 8.5 8.4 - 10.2 mg/dL 06/22/2022 3:29 AM [facility] Phosphorus 2.8(L) 2.9 - 5.1 mg/dL 06/22/2022 3:29 AM [facility] Anion Gap 12 8 - 18 06/22/2022 3:29 AM [facility] BUN/Creatinine Ratio 12 7 - 06/22/2022 3:29 AM [facility] Osmolality Calculated 276 270 - 300 mOsm/kg 06/22/2022 3:29 AM [facility] eGFR by CKD-EPI 55(L) >=90 mL/min/1.7 3 m2 06/22/2022 3:29 AM [facility] Blood BLOOD SPECIMEN / Unknown Lab Venipuncture / Unknown 06/22/2022 2:34 AM CDT 06/22/2022 3:02 AM CDT Ori Iyer PA-C LAB - CHEMISTRY ORD ERABLES [facility] [address] [place] [address], [facility] [phone] * CORTISOL BLOOD AM (06/22/2022 2:34 AM CDT) Cortisol AM 14.3 3.7 - 19.4 ug/dL 06/22/2022 3:49 AM T [facility] Blood BLOOD SPECIMEN / Unknown Lab Venipuncture / Unknown 06/22/2022 2:34 AM CDT 06/22/2022 3:02 AM CDT Narrative [facility] - 06/22/2022 3:49 AM CDT Normal cortisol levels are generally highest in the morning hours and lowest from late evening through the plastic dolls mold filler 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 ??The PM measurements of cortisol run approximately one-half to one-third of the AM values. Ori Iyer PA-C LAB - CHEMISTRY ORD ERABLES Performing Organization Address [facility] Co de Phone Number [facility] [address] [place] [address], [place] [phone] * GLUCOSE - POINT OF CARE (06/21/2022 5:10 PM CDT) Glucose WB/POC 103 70 - 115 mg/dL 06/21/2022 5:14 PM CDT [facility] Specimen Type Cap Fingerstick 2022 5:14 PM CDT [facility] Blood BLOOD SPECIMEN / Unknown 06/21/2022 5:10 PM CDT 06/21/2022 5:14 PM CDT Abeba Will DO LAB - POINT OF CARE ORDERABLES Performing Organization Address [facility] Co de Phone Number [facility] [address] [place] [address], [place] [phone] * PATHOLOGY TISSUE (06/21/2022 4:40 PM CDT) Pathologist [facility] Case Report Surgical Pathology Report ? Case: [id number] ? Authorizing Provider: ??Carmen Morales MD ? Collected: ? 06/21/2022 04:40 PM ? Ordering Location: ? [facility] ?Received: ?06/22/2022 08:59 AM ? Pathologist: ? Hansa Gusman MD ? Specimen: ?Small Bowel, small bowel biopsy r/o celiac ? 06/25/2022 2:27 PM [facility] Final Diagnosis Small intestine, small bowel, biopsy (A): - No histopathologic abnormality - Intact villous and crypt architecture without increased intraepithelial lymphocytes 06/25/2022 2:27 PM [facility] Microscopic Description and Comment Microscopic examination substantiates the final diagnosis. 06/25/2022 2:27 PM [facility] Clinical History The patient is a 72-year-old woman presented with coffee-ground emesis who underwent upper GI endoscopy. 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 Duodenal bulb erythema, biopsied for evaluation of celiac disease. 06/25/2022 2:27 PM [facility] Gross Description The requisition and specimen(s) are identified with the patient's name Kandace Cole. Received in formalin, specimen A , are 5 pink-freeman tissues, 0.3-0.9 cm in greatest dimension and 2.3 x 0.3 x 0.2 cm in aggregate, submitted in toto in cassette A1. DF 06/25/2022 2:27 PM [facility] Disclaimer The performance characteristics of all immunohistochemical and indirect immunofluorescence stains (if any) cited in this report were determined by the Histopathology Laboratory of [facility]. Some of these tests were developed by [...] attending (teaching) pathologist. 06/25/2022 2:27 PM CDT [facility] Embedded Images 06/25/2022 2:27 PM CDT [facility] Resection without Tumor SMALL BOWEL RESECTION SPECIMEN / Unknown 06/21/2022 4:40 PM CDT 06/22/2022 8:59 AM CDT Comment:Pre-op diagnosis: Coffee ground emesis Carmen Morales MD LAB - PATHOLOGY/CYTO LOGY ORDERABLES [facility] [address] [facility] [place] [address], [facility] [phone] * EGD (06/21/2022 4:24 PM CDT) Report [...] at 18:45, then light meal at 20:45 ?(tonight) ?- Further recs per inpatient team ?- Await biopsy results ? Attending Participation: ??I was present and participated during the entire ?procedure, including non-lee portions. ? Procedure Code(s): ? --- Professional --- ? 72857, Esophagogastroduode noscopy, flexible, transoral; with biopsy, ? single or multiple Diagnosis Code(s): ?--- Professional --- ?K22.70, Heredia's esophagus without dysplasia ?K92.0, Hematemesis CPT copyright 2019 [employer]. All rights reserved. The codes documented in this report are preliminary and upon operations officer trust department review may be revised to meet current compliance requirements. Carmen Morales, 06/21/2022 5:01:11 PM Note Initiated On: 06/21/2022 4:24 PM Number of Addenda: 0 ? [facility] ? [address] [place] [address] [facility] 06/21/2022 4:24 PM CDT Abeba Will DO GI PROCEDURE ORDERAB LES Performing Organization Address City/[facility]/ZIP Co de Phone Number [facility] * CARDIAC EKG ORDER (06/21/2022 3:29 PM CDT) Narrative 06/21/2022 3:29 PM CDT Ordered by an unspecified provider. Scanned Document CARDIAC SERVICES ORD ERABLES * (ABNORMAL) GLUCOSE - POINT OF CARE (06/21/2022 2:59 PM CDT) Glucose WB/POC 143(H) 70 - 115 mg/dL 06/21/2022 3:04 PM CDT [facility] Specimen Type Cap Fingerstick 2022 3:04 PM CDT [facility] Blood BLOOD SPECIMEN / Unknown 06/21/2022 2:59 PM CDT 06/21/2022 3:04 PM CDT Abeba Will DO LAB - POINT OF CARE ORDERABLES Performing Organization Address [facility]/ZIP Co de Phone Number [facility] [address] [place] [address], [place] [phone] * (ABNORMAL) GLUCOSE - POINT OF CARE (06/21/2022 2:00 PM CDT) Glucose WB/POC 47(LL) 70 - 115 mg/dL 06/21/2022 2:04 PM CDMT. [facility] Specimen Type Cap Fingerstick 2022 2:04 PM [facility] Blood BLOOD SPECIMEN / Unknown 06/21/2022 2:00 PM CDT 06/21/2022 2:04 PM CDT Abeba Will DO LAB - POINT OF CARE ORDERABLES [facility] [address] [place] [address], [facility] [phone] * (ABNORMAL) CBC W AUTO DIFFERENTIAL (06/21/2022 2:03 AM CDT) WBC 8.0 3.5 - 10.5 10? 3 /uL 06/21/2022 2:59 AM [facility] RBC 2.77(L) 3.80 - 5.20 10? 6 /uL 06/21/2022 2:59 AM [facility] Hemoglobin 8.3(L) 12.0 - 15.6 g/dL 06/21/2022 2:59 AM [facility] Hematocrit 25.9(L) 35.0 - 45.0 % 06/21/2022 2:59 AM [facility] MCV 93.5 80.7 - 98.3 fL 06/21/2022 2:59 AM [facility] MCH 30.0 26.7 - 34.0 pg 06/21/2022 2:59 AM [facility] MCHC 32.0 30.8 - 35.9 g/dL 06/21/2022 2:59 AM [facility] RDW-SD 46.8 36.0 - 50.0 fL 06/21/2022 2:59 AM [facility] RDW-CV 13.8 11.2 - 14.8 % 06/21/2022 2:59 AM [facility] Platelet Count 415(H) 150 - 400 10? 3 /uL 06/21/2022 2:59 AM [facility] MPV 9.6 9.4 - 12.9 fL 06/21/2022 2:59 AM [facility] nRBC Absolute 0.00 0 10? 3 /uL 06/21/2022 2:59 AM [facility] nRBC Auto 0.0 0 /100 WBC 06/21/2022 2:59 AM [facility] Neutrophils % 68.7 35.0 - 70.0 % 06/21/2022 2:59 AM [facility] Lymphocytes % 17.2(L) 20.0 - 43.0 % 06/21/2022 2:59 AM [facility] Monocytes % 10.7 5.0 - 13.0 % 06/21/2022 2:59 AM [facility] Eosinophils % 2.3 0.0 - 6.0 % 06/21/2022 2:59 AM [facility] Basophil % 0.6 0.0 - 2.0 % 06/21/2022 2:59 AM [facility] Neutrophils Absolute 5.47 1.60 - 7.00 10? 3 /uL 06/21/2022 2:59 AM [facility] Lymphocyte Absolute 1.37 1.10 - 3.90 10? 3 /uL 06/21/2022 2:59 AM [facility] Monocytes Absolute 0.85 0.26 - 1.07 10? 3 /uL 06/21/2022 2:59 AM [facility] Eosinophils Absolute 0.18 0.00 - 0.47 10? 3 /uL 06/21/2022 2:59 AM [facility] Basophils Absolute 0.05 0.00 - 0.08 10? 3 /uL 06/21/2022 2:59 AM [facility] Immature Granulocytes % 0.5 0.0 - 1.0 % 06/21/2022 2:59 AM [facility] Immature Granulocytes Absolute 0.04 06/21/2022 2:59 AM [facility] Blood BLOOD SPECIMEN / Unknown Lab Venipuncture / Unknown 06/21/2022 2:03 AM CDT 06/21/2022 2:39 AM CDT Deepa Georges MD LAB - HEMATOLOGY ORD ERABLES Performing Organization Address City/State/[facility] Co de Phone Number [address] [address], [facility] [phone] * (ABNORMAL) COMPREHENSIVE METABOLIC PANEL (06/21/2022 2:03 AM [facility]) BUN 14 7 - 26 mg/dL 06/21/2022 3:05 AM [facility] Creatinine 1.11(H) 0.56 - 0.96 mg/dL 06/21/2022 3:05 AM [facility] Sodium 134(L) 136 - 145 mmol/L 06/21/2022 3:05 AM [facility] Potassium 4.2 3.5 - 4.5 mmol/L 06/21/2022 3:05 AM [facility] Chloride 96(L) 98 - 107 mmol/L 06/21/2022 3:05 AM [facility] CO2 25 22 - 29 mmol/L 06/21/2022 3:05 AM [facility] Glucose 54(L) 70 - 115 mg/dL 06/21/2022 3:05 AM [facility] Calcium 9.5 8.4 - 10.2 mg/dL 06/21/2022 3:05 AM [facility] Protein Total 6.0 6.0 - 8.3 g/dL 06/21/2022 3:05 AM [facility] Albumin 3.3(L) 3.4 - 5.0 g/dL 06/21/2022 3:05 AM [facility] Bilirubin Total 0.7 0.2 - 1.2 mg/dL 06/21/2022 3:05 AM [facility] Alkaline Phosphatase 62 40 - 150 U/L 06/21/2022 3:05 AM [facility] ALT 10 5 - 55 U/L 06/21/2022 3:05 AM [facility] AST 15 5 - 34 U/L 06/21/2022 3:05 AM [facility] Anion Gap 17 8 - 18 06/21/2022 3:05 AM [facility] BUN/Creatinine Ratio 13 7 - 23 06/21/2022 3:05 AM [facility] Osmolality Calculated 276 270 - 300 mOsm/kg 06/21/2022 3:05 AM [facility] Albumin/Globulin Ratio 1.2 1.1 - 2.3 06/21/2022 3:05 AM [facility] eGFR by CKD-EPI 53(L) >=90 mL/min/1.7 3 m2 06/21/2022 3:05 AM [facility] Blood BLOOD SPECIMEN / Unknown Lab Venipuncture / Unknown 06/21/2022 2:03 AM CDT 06/21/2022 2:39 AM T Deepa Georges MD LAB - CHEMISTRY CHELO QUIGLEY [facility] [address] [place] [address], [facility] [phone] * (ABNORMAL) URINALYSIS REFLEX TO MICROSCOPIC NO CULTURE (06/21/2022 12:50 AM T) Color UA Yellow Straw, Yellow 06/21/2022 1:04 AM [facility] Clarity UA Clear Clear 06/21/2022 1:04 AM [facility] Specific [place] UA 1.048(H) 1.005 - 1.030 06/21/2022 1:04 AM [facility] pH UA 7.0 5.0 - 8.0 pH 06/21/2022 1:04 AM [facility] Protein UA Negative Negative 06/21/2022 1:04 AM [facility] Glucose UA Negative Negative 06/21/2022 1:04 AM [facility] Ketone UA 1+(A) Negative 06/21/2022 1:04 AM [facility] Bilirubin UA Negative Negative 06/21/2022 1:04 AM [facility] Blood UA Negative Negative 06/21/2022 1:04 AM [facility] Nitrite UA Negative Negative 06/21/2022 1:04 AM [facility] Leukocyte Esterase Trace(A) Negative 06/21/2022 1:04 AM [facility] Urobilinogen UA Negative Negative mg/dL 06/21/2022 1:04 AM [facility] RBC UA 0-2 None Seen, 0-2, 3-5 /HPF 06/21/2022 1:04 AM CDT [facility] WBC UA 0-5 None Seen, 0-5 /HPF 06/21/2022 1:04 AM CDT [facility] Squamous Epithelial Cells UA 0-2 None Seen, 0-2, 3-5 /HPF 06/21/2022 1:04 AM CDT [facility] Urine URINE SPECIMEN OBTAINED BY CLEAN CATCH PROCEDURE / Unknown Collection / Unknown 06/21/2022 12:50 AM CDT 06/21/2022 12:57 AM CDT Narrative [facility] - 06/21/2022 1:04 AM CDT Sima Kaufman PA-C LAB - URINALYSIS OR DERABLES Performing Organization Address City/[facility]/ZIP Co de Phone Number [address] [address], [place] [phone] * (ABNORMAL) HEMOGLOBIN (06/20/2022 10:18 PM CDT) Hemoglobin 8.5(L) 12.0 - 15.6 g/dL 06/20/2022 10:42 PM CDT [facility] Blood BLOOD SPECIMEN / Unknown Lab Venipuncture / Unknown 06/20/2022 10:18 PM CDT 06/20/2022 10:39 PM CDT Deepa Georges MD LAB - HEMATOLOGY ORD ERABLES Performing Organization Address City/[facility]/ZIP Co de Phone Number [address] [address], [place] [phone] * B-TYPE NATRIURETIC PEPTIDE (06/20/2022 10:18 PM CDT) BNP 99 <100 pg/mL 06/20/2022 11:17 PM CDT [facility] Comment: A decision threshold of 100 [...] - CHEMISTRY CHELO QUIGLEY Performing Organization Address [facility]/State/[facility] Co de Phone Number [place] [id number] [place] [address], [place] [phone] * CT ANGIO ABDOMEN PELVIS (06/20/2022 5:05 [...] etiology. > Dictated by Sherlyn Hopkins DO (physical therapy resident). I, Chaim Martins have personally reviewed and interpreted this examination/study. > Interpreting Provider: Chaim Martins on 06/20/2022 10:47 PM Narrative 06/20/2022 10:47 PM CDT PROCEDURE: ??CT ANGIO ABDOMEN PELVIS, DATE/TIME OF EXAM: ??06/20/2022 5:05 PM, LOCATION ??[facility] INDICATION: R10.12: Abdominal pain, left upper [...] PELVIS, DATE/TIME OF EXAM: 06/20/2022 5:05PM, LOCATION [facility] INDICATION: R10.12: Abdominal pain, left upper [...] etiology. > Dictated by Sherlyn Hopkins DO (physical therapy resident). IChaim have personally reviewed and interpreted this [...] spine. Report dictated by Yasir Pierre MD (physical therapy resident). Kamila Narvaez MD have personally reviewed and interpreted this examination/study. > Interpreting Provider: Kamila Barber MD on 06/20/2022 4:25 PM Narrative 06/20/2022 4:25 PM CDT PROCEDURE: ??XR CERVICAL SPINE 2 OR 3VW, DATE/TIME OF EXAM: ??06/20/2022 3:13 PM, LOCATION ??[facility] INDICATION: R42: Dizziness R06.02: Shortness of [...] 3VW, DATE/TIME OF EXAM: 33:13 PM, LOCATION [facility] INDICATION: R42: Dizziness R06.02: Shortness of [...] spine. Report dictated by Yasir Pierre MD (physical therapy resident). Kamila Narvaez MD have personally reviewed and interpreted this examination/study. > Interpreting Provider: Kamila Barber MD on 06/20/2022 4:25 PM Adolph Mckinney MD DIAGNOSTIC IMAGING ORDERABLES * XR CHEST 2VW (06/20/2022 3:02 PM CDT) Anatomical Region Laterality Modality Chest Radiographic Vivian ging 06/20/2022 3:13 PM CDT Narrative 06/20/2022 3:49 PM CDT PROCEDURE: ??XR CHEST 2VW, DATE/TIME OF EXAM: ??06/20/2022 3:03 PM, LOCATION [facility] INDICATION: R06.02: Shortness of breath ADDITIONAL [...] heads. Report dictated by Yasir Pierre MD (physical therapy resident). Haroldo Narvaez MD have personally reviewed and interpreted this examination/study. > Interpreting Provider: Haroldo Ball MD on 06/20/2022 3:49 PM Procedure Note Haroldo Ball MD - 06/20/2022 PROCEDURE: XR CHEST 2VW, DATE/TIME OF EXAM: 06/20/2022 3:03 PM, LOCATION [facility] INDICATION: R06.02: Shortness of breath ADDITIONAL [...] heads. Report dictated by Yasir Pierre MD (physical therapy resident). I, Haroldo Ball MD have personally reviewed and interpreted this examination/study. > Interpreting Provider: Haroldo Ball MD on 06/20/2022 3:49 PM Adolph Mckinney MD DIAGNOSTIC IMAGING ORDERABLES * TYPE + SCREEN PANEL (06/20/2022 2:05 PM CDT) Pathologist [facility] Antibody Screen NEG 2:53 PM CDT [facility] ABO Rh A POS 06/20/2022 2:53 PM CDT [facility] Blood Bank BLOOD SPECIMEN / Unknown Venipuncture / Unknown 06/20/2022 2:05 PM CDT 06/20/2022 2:08 PM CDT Adolph Mckinney MD LAB - BLOOD BANK O RDERABLES Performing Organization Address City/[facility]/ZIP Co de Phone Number [facility] [address] [place] [address], [facility] [phone] * LACTIC ACID BLOOD (06/20/2022 2:05 PM CDT) [facility] Lactic Acid-Stat 1.1 <=2.0 mmol/L 06/20/2022 2:48 PM CDT [facility] Blood BLOOD SPECIMEN / Unknown Venipuncture / Unknown 06/20/2022 2:05 PM CDT 06/20/2022 2:23 PM CDT Adolph Mckinney MD LAB - CHEMISTRY OR DERABLES [address] [address], [facility] [phone] * LIPASE BLOOD (06/20/2022 2:05 PM CDT) Pathologist [facility] Lipase 18 8 - 78 U/L 06/20/2022 2:50 PM CDT [facility] Blood BLOOD SPECIMEN / Unknown Venipuncture / Unknown 06/20/2022 2:05 PM CDT 06/20/2022 2:23 PM CDT Narrative [facility] - 06/20/2022 2:50 PM CDT Lipase results from the [employer] Alinity analyzer may not be comparable with other methodologies. Adolph Mckinney MD LAB - CHEMISTRY OR DERABLES Performing Organization Address [facility] Co de Phone Number [facility] [address] [place] [address], [facility] [phone] * PT-INR [facility] (06/20/2022 2:05 PM CDT) PT 13.4 12.1 - 14.8 Seconds 06/20/2022 2:48 PM CDT [facility] INR 1.0 See Comment 06/20/2022 2:48 PM CDT [facility] Comment:The suggested therap eutic range for standard coumadin (warfarin) therapy is an INR of 2.0-3.0. For high-risk patients (Mechanical Mitral Valve Prosthesis, etc.), the suggested prophylactic therapeutic range is an INR of 2.5-3.5. Blood BLOOD SPECIMEN / Unknown Venipuncture / Unknown 06/20/2022 2:05 PM CDT 06/20/2022 2:07 PM CDT Adolph Mckinney MD LAB - COAGULATION ORDERABLES Performing Organization Address City/[facility] Co de Phone Number [facility] [address] [place] [address], [facility] [phone] * (ABNORMAL) CBC W/O DIFFERENTIAL (06/20/2022 2:05 PM CDT) WBC 9.5 3.5 - 10.5 10? 3 /uL 06/20/2022 2:27 PM CDT [facility] RBC 3.07(L) 3.80 - 5.20 10? 6 /uL 06/20/2022 2:27 PM CDT [facility] Hemoglobin 9.3(L) 12.0 - 15.6 g/dL 06/20/2022 2:27 PM [facility] Hematocrit 27.6(L) 35.0 - 45.0 % 06/20/2022 2:27 PM [facility] MCV 89.9 80.7 - 98.3 fL 06/20/2022 2:27 PM [facility] MCH 30.3 26.7 - 34.0 pg 06/20/2022 2:27 PM [facility] MCHC 33.7 30.8 - 35.9 g/dL 06/20/2022 2:27 PM [facility] RDW-SD 45.2 36.0 - 50.0 fL 06/20/2022 2:27 PM [facility] RDW-CV 14.0 11.2 - 14.8 % 06/20/2022 2:27 PM [facility] Platelet Count 463(H) 150 - 400 10? 3 /uL 06/20/2022 2:27 PM [facility] MPV 9.2(L) 9.4 - 12.9 fL 06/20/2022 2:27 PM [facility] nRBC Absolute 0.00 0 10? 3 /uL 06/20/2022 2:27 PM [facility] nRBC Auto 0.0 0 /100 WBC 06/20/2022 2:27 PM [facility] Blood BLOOD SPECIMEN / Unknown Venipuncture / Unknown 06/20/2022 2:05 PM CDT 06/20/2022 2:22 PM CDT Adolph Mckinney MD LAB - HEMATOLOGY O RDERABLES [facility] [address] [place] [phone], [facility] [phone] * TROPONIN-I HIGH SENSITIVE REFLEX 1HOUR (06/20/2022 1:05 PM CDT) Troponin I High Sensitive 8 <=14 ng/L 06/20/2022 1:59 PM T [facility] Delta Troponin I HS 06/20/2022 1:59 PM T [facility] Comment:Delta value intentio anil not calculated. Baseline to 1 hour specimen collection interval exceeded. Blood BLOOD SPECIMEN / Unknown Venipuncture / Unknown 06/20/2022 1:05 PM CDT 06/20/2022 1:23 PM CDT Sima Kaufman PA-C LAB - CHEMISTRY ORD ERABLES Performing Organization Address City/[facility]/ZIP Co de Phone Number [address] [address], [facility] [phone] * TROPONIN-I HIGH SENSITIVE BASELINE + 1HR (06/20/2022 9:49 AM CDT) Pathologist [facility] Troponin I High Sensitive 7 <=14 ng/L 06/20/2022 10:39 AM CDT [facility] Blood BLOOD SPECIMEN / Unknown Venipuncture / Unknown 06/20/2022 9:49 AM CDT 06/20/2022 9:55 AM CDT Sima Kaufman PA-C LAB - CHEMISTRY ORD ERABLES Performing Organization Address [facility]/ZIP Co de Phone Number [address] [address], [facility] [phone] * (ABNORMAL) COMPREHENSIVE METABOLIC PANEL (06/20/2022 9:49 AM CDT) Pathologist [facility] BUN 14 7 - 26 mg/dL 06/20/2022 10:32 AM T [facility] Creatinine 1.02(H) 0.56 - 0.96 mg/dL 06/20/2022 10:32 AM [facility] Sodium 128(L) 136 - 145 mmol/L 06/20/2022 10:32 AM T [facility] Potassium 4.3 3.5 - 4.5 mmol/L 06/20/2022 10:32 AM [facility] Chloride 93(L) 98 - 107 mmol/L 06/20/2022 10:32 AM [facility] CO2 26 22 - 29 mmol/L 06/20/2022 10:32 AM T [facility] Glucose 91 70 - 115 mg/dL 06/20/2022 10:32 AM [facility] Calcium 9.8 8.4 - 10.2 mg/dL 06/20/2022 10:32 AM [facility] Protein Total 6.5 6.0 - 8.3 g/dL 06/20/2022 10:32 AM [facility] Albumin 3.5 3.4 - 5.0 g/dL 06/20/2022 10:32 AM [facility] Bilirubin Total 0.6 0.2 - 1.2 mg/dL 06/20/2022 10:32 AM [facility] Alkaline Phosphatase 66 40 - 150 U/L 06/20/2022 10:32 AM [facility] ALT 10 5 - 55 U/L 06/20/2022 10:32 AM [facility] AST 16 5 - 34 U/L 06/20/2022 10:32 AM [facility] Anion Gap 13 8 - 18 06/20/2022 10:32 AM [facility] BUN/Creatinine Ratio 14 7 - 23 06/20/2022 10:32 AM [facility] Osmolality Calculated 266(L) 270 - 300 mOsm/kg 06/20/2022 10:32 AM [facility] Albumin/Globulin Ratio 1.2 1.1 - 2.3 06/20/2022 10:32 AM [facility] eGFR by CKD-EPI 58(L) >=90 mL/min/1.7 3 m2 06/20/2022 10:32 AM [facility] Blood BLOOD SPECIMEN / Unknown Venipuncture / Unknown 06/20/2022 9:49 AM CDT 06/20/2022 9:55 AM CDT Sima Kaufman PA-C LAB - CHEMISTRY ORD ERABLES [facility] [address] [place] [address], [facility] [phone] * (ABNORMAL) CBC W AUTO DIFFERENTIAL (06/20/2022 9:49 AM CDT) WBC 11.8(H) 3.5 - 10.5 10? 3 /uL 06/20/2022 9:58 AM [facility] RBC 3.02(L) 3.80 - 5.20 10? 6 /uL 06/20/2022 9:58 AM [facility] Hemoglobin 9.0(L) 12.0 - 15.6 g/dL 06/20/2022 9:58 AM [facility] Hematocrit 27.7(L) 35.0 - 45.0 % 06/20/2022 9:58 AM [facility] MCV 91.7 80.7 - 98.3 fL 06/20/2022 9:58 AM [facility] MCH 29.8 26.7 - 34.0 pg 06/20/2022 9:58 AM [facility] MCHC 32.5 30.8 - 35.9 g/dL 06/20/2022 9:58 AM [facility] RDW-SD 45.6 36.0 - 50.0 fL 06/20/2022 9:58 AM [facility] RDW-CV 13.8 11.2 - 14.8 % 06/20/2022 9:58 AM [facility] Platelet Count 449(H) 150 - 400 10? 3 /uL 06/20/2022 9:58 AM [facility] MPV 9.0(L) 9.4 - 12.9 fL 06/20/2022 9:58 AM [facility] nRBC Absolute 0.00 0 10? 3 /uL 06/20/2022 9:58 AM [facility] nRBC Auto 0.0 0 /100 WBC 06/20/2022 9:58 AM [facility] Neutrophils % 84.6(H) 35.0 - 70.0 % 06/20/2022 9:58 AM [facility] Lymphocytes % 6.7(L) 20.0 - 43.0 % 06/20/2022 9:58 AM [facility] Monocytes % 6.6 5.0 - 13.0 % 06/20/2022 9:58 AM [facility] Eosinophils % 1.1 0.0 - 6.0 % 06/20/2022 9:58 AM CDT [facility] Basophil % 0.6 0.0 - 2.0 % 06/20/2022 9:58 AM CDT [facility] Neutrophils Absolute 9.94(H) 1.60 - 7.00 10? 3 /uL 06/20/2022 9:58 AM CDT [facility] Lymphocyte Absolute 0.79(L) 1.10 - 3.90 10? 3 /uL 06/20/2022 9:58 AM T [facility] Monocytes Absolute 0.77 0.26 - 1.07 10? 3 /uL 06/20/2022 9:58 AM [facility] Eosinophils Absolute 0.13 0.00 - 0.47 10? 3 /uL 06/20/2022 9:58 AM CDT [facility] Basophils Absolute 0.07 0.00 - 0.08 10? 3 /uL 06/20/2022 9:58 AM CDT [facility] Immature Granulocytes % 0.4 0.0 - 1.0 % 06/20/2022 9:58 AM CDT [facility] Immature Granulocytes Absolute 0.05 06/20/2022 9:58 AM [facility] Blood BLOOD SPECIMEN / Unknown Venipuncture / Unknown 06/20/2022 9:49 AM CDT 06/20/2022 9:54 AM CDT Sima Kaufman PA-C LAB - HEMATOLOGY OR DERABLES Performing Organization Address [facility] Co de Phone Number [facility] [address] [place] [address], [facility] [phone] * EKG 12-LEAD (06/20/2022 9:40 AM CDT) Ventricular Rate 88 BPM [facility] Atrial Rate 88 BPM [facility] P-R Interval 176 ms [facility] QRS Duration ms 70 ms [facility] Q-T Interval ms 348 ms [facility] QTC Calculation (Bezet) 421 ms [facility] Calculated P [place] 75 degrees [facility] MUSE Calculated R [place] 55 degrees [facility] M[facility] Calculated T [place] 74 degrees [facility] MUSE Interpretation EKG NORMAL SINUS RHYTHM NORMAL ECG WHEN COMPARED WITH ECG OF 15-FEB-2022 00:55, VENT. RATE HAS INCREASED by 15 bpm Confirmed by MARIN KEARNS MD ([id number]) on 06/20/2022 1:46:36 PM [facility] 06/20/2022 9:40 AM CDT 06/20/2022 1:46 PM CDT Sima Kaufman PA-C ECG ORDERABLES [facility] documented in this encounter Visit Diagnoses Diagnosis Dizziness Dizziness and giddiness Shortness of breath Abdominal pain, left upper quadrant Hematemesis with nausea Anemia, unspecified type Coffee ground emesis Hematemesis Shortness of breath Abdominal pain, left upper quadrant Dizziness Dizziness and giddiness Hematemesis with nausea documented in this encounter Administered Medications Inactive [...] 2:12 PM CDT 25 g 937.5 mL/hr dextrose 5 % and 0.9% NaCl infusion at 100 mL/hr, Intravenous, CONTINUOUS, Starting on Jeanette 06/21/22 at 1445, Until Sat06/22/22 at 0044 $ New Bag/Syringe 06/22/2022 12:28 AM CDT 100 mL/hr $ New Bag/Syringe 06/21/2022 3:24 PM CDT 100 mL /hr escitalopram (Lexapro) tablet 10 mg 10 mg, [...] for choices). NOTIFY PROVIDER OF HYPOGLYCEMIC EVENT. iopamidol (Isovue 370) 76 % contrast Intravenous, CONTRAST ONCE, Starting on Sat06/20/22 at 1638, Until 06/22/22 at 1637 $ Given - Contrast 06/20/2022 4:46 PM CDT 100 mL lactated ringers infusion at 100 mL/hr, Intravenous, CONTINUOUS, Starting on 06/20/22 at 1900, Until Jeanette 06/21/22 at 1407 $ New Bag/Syringe 06/21/2022 9:52 AM CDT 100 mL/hr Current Rate 06/21/2022 6:30 AM CDT 100 mL/hr Current Rate 06/21/2022 12:41 AM CDT 100 mL/hr magnesium sulfate 4 g in 100 mL bolus 4 g, at 25 mL/hr, Administer over 240 Minutes, Intravenous, ONCE, 1 dose, On Sat06/22/22 at 1000, Infuse at 1 gm/hr $ New Bag/Syringe 06/22/2022 10:47 AM CDT 4 g 25 mL/hr meclizine (Antivert) tablet 12.5 mg 12.5 mg, [...] (Zofran) injection 4 mg 4 mg, Intravenous, NOW, 1 dose, On Sat06/20/22 at 1445, Administer over 2 to 5 minutes. $ Given 06/20/2022 2:45 PM CDT 4 mg ondansetron (Zofran) injection 4 mg 4 mg, Intravenous, EVERY 6 HOURS PRN, Nausea/Vomiting, Starting on Sat06/22/22 at 0821, Until 06/23/22 at 1754, Administer IV if patient is NPO, actively vomiting, or unable to swallow. pantoprazole (Protonix) injection 40 mg 40 mg, Intravenous, Once, 1 dose, On Sat06/20/22 at 1400, For every 40 mg of pantoprazole mix with 10 mL Normal Saline (final concentration = 4 mg/mL). Inject SLOWLY over 2 min. $ Given 06/20/2022 2:05 PM CDT 40 mg pantoprazole (Protonix) injection 40 mg 40 mg, Intravenous, 2 TIMES DAILY, 5 doses, First dose on Sat06/20/22 at 2100, Last dose on Sat06/22/22 at 2100, For every 40 mg of pantoprazole mix with 10 mL Normal Saline (final concentration = 4 mg/mL). Inject SLOWLY over 2 min. $ Given 06/22/2022 9:29 PM CDT 40 mg $ Given 06/22/2022 8:39 AM CDT 40 mg $ Given 06/21/2022 8:48 PM CDT 40 mg pantoprazole EC (Protonix) tablet 40 mg [...] $ Given 06/22/2022 9:29 PM CDT 40 mg scopolamine (Transderm-Scop) 1 patch 1 patch, Administer over 72 Hours, EVERY [...] 1 mg of scopolamine over 72 hours. $ Applied 06/21/2022 12:00 PM CDT 1 patch Behind Left Ear vitamin D3 (Cholecalciferol) 10 MCG (400 UNIT) [...] Anthony Magana RN - Reason: IV Currently Infusing)212 ($ Given - Provider: Damian Arevalo RN) [...] ($ Given - Provider: Damian Arevalo RN) 0827 ($ Given - Provider: Tita Arvizu RN) [...] Given - Provider: Mark Anthony Magana RN) 08 ($ Given - Provider: Tita [...] Magana RN)2047 ($ Given - Provider: Leobardo Chisholm, SANTI) 08 ($ Given - Provider: Mark Anthony Magana, SANTI)2128 ($ Given - Provider: Damian Arevalo, SANTI) pantoprazole EC (Protonix) tablet 40 mg 40 mg, Oral, DAILY, First dose on Sat06/23/22 at 0700, Until Discontinued, prior to first meal of the day Do not crush, chew, or cut in half. 08 ($ Given - Provider: Tita Arvizu RN) pravastatin (Pravachol) tablet 40 mg 40 [...] 1441 ($ Given - Provider: Mark Anthony Magana, RN) 0827 ($ Given - Provider: Tita Arvizu, RN) Continuous Medication Order 06/21/2022 06/22/2022 06/23/2022 0.9% NaCl infusion at 100 mL/hr, Intravenous, CONTINUOUS, Starting on 06/23/22 at 0800, Until 06/23/22 at 1754 0826 ($ New Bag/Syringe - Provider: Tita Arvizu, RN) dextrose 5 % and 0.9% NaCl infusion () at 100 mL/hr, Intravenous, CONTINUOUS, Starting on Jeanette 06/21/22 at 1445, Until 06/22/22 at 0044 1524 ($ New Bag/Syringe - Provider: Mark Anthony Magana RN) 0028 ($ New Bag/Syringe - Provider: Leobardo Chisholm RN) lactated ringers infusion (CANCELED) at 100 mL/hr, Intravenous, CONTINUOUS, Starting on 06/20/22 at 1900, Until Jeanette 06/21/22 at 1407 0041 ($ New Bag/Syringe - Provider: Leobardo Chisholm, SANTI)0041 (Current Rate - Provider: Leobardo Chisholm, SANTI)0630 (Current Rate - Provider: Leobardo Chisholm, SANTI)0952 ($ New Bag/Syringe - Provider: Mark Anthony Magana, SANTI) PRN Medication Order 06/21/2022 06/22/2022 06/23/2022 0.9% NaCl injection 1-10 mL(Linked Group 1) 1-10 mL, Intracatheter, PRN, Other, peripheral line flush, Starting on Sat06/22/22 at 0820, Until 06/23/22 at 1754, Flush peripheral IV catheter with 1-10 mL of normal saline before and after medications and prn to clear blood from the line or to verify patency. 0826 ($ Given - Provider: Tita Arvizu, SANTI) acetaminophen (Tylenol) tablet 650 mg 650 mg, Oral, EVERY 6 HOURS PRN, Mild Pain, Fever, Moderate Pain, Headache, Starting on 06/22/22 at 0821, Until 06/23/22 at 1754, Patient preference for lesser PRN pain meds may be honored when the patient requests a less strong medication, a lower dose, or a less intrusive route of administration when the lesser drug, dose and route have been ordered for the patient. This patient request must be documented in the MAR. 1718 ($ Given - Provider: Mark Anthony Magana RN)2311 ($ Given - Provider: Damian Arevalo RN) [...] Magana RN)1436 (See Alternative - Provider: Tita Arvizu RN) dextrose 10 % IV bolus(Linked Group [...] New Bag/Syringe - Provider: Mark Anthony Magana RN)1421 (Stopped - Provider: Mark Anthony Magana SANTI)1436 (Stopped - Provider: Tita Arvizu RN) glucagon (Glucagen) injection 1 mg 1 [...] swallow. documented in this encounter Care Teams Creche Attendant Relationship Specialty Start Date End Date Karrie Phillips MD [address] [place] [address] PCP - General 03/13/22 documented as of this encounter
--- OUTSIDE RECORDS SUMMARY | 2024-04-11 03:31 | XMS_ITS | Encounter Summary ---
Author Organization [facility] Address [address] [place] [address] Care Team Providers Care Justice Professor Name Role Phone Karrie Phillips MD Primary Care Provider [phone] Encounter Details Date Type Department Care Team (Latest Contact Info) Description 07/18/2022 11:01 AM CDT - 07/18/2022 11:59 PM CDT Hospital Encounter [facility] DIAGNOSTIC RAD CSM [address]L [address] [facility] [address] Deon Taylor MD [address] [place] [address] Discharge Disposition: Home or Self Care Social [...] and heating? Not hard at all 06/04/2022 [facility] [place] [facility] Occupat ional Health - Occupational Stress [...] place to sleep or slept in a usp (including now)? No 06/04/2022 Sex and Gender [...] mouth every evening 06/08/2022 saline nasal spray (Irion; Baby [place]) 0.65 % nasal spray [place] 1 (one) spray into each nostril as needed for Dry Nose 15 mL 02/19/2022 vitamin D3 (Cholecalciferol) 10 MCG (400 UNIT) tablet Take 2 (two) tablets by mouth once daily 06/09/2022 documented as of this encounter Plan of Treatment Upcoming Encounters Date Type Department Care Team (Late st Contact Info) Description 06/02/2024 1:45 PM HR LEADER Office Visit [facility] - Orthopedics [address] [place] [address], [facility] [place] [address] Deon Taylor MD [address] [place] [address] documented as of this encounter Procedures Procedure Name Priority Date/Time Associated Diagnosis Comments XR CERVICAL SPINE 2 OR 3VW Routine 07/18/2022 11:05 AM CDT Status post orthopedic surgery, follow-up exam documented in this encounter Results * XR [...] spine: A cervical collar is present. Skin luab removed. There isinstrumented spinal fusion including posterior [...] documented in this encounter Visit Diagnoses Diagnosis Status post orthopedic surgery, follow-up exam Follow-up examination, following other surgery documented in this encounter Care Teams Justice Professor Relationship Specialty Start Date End Date Karrie Phillips MD [address] [place] [address] PCP - General 03/13/22 documented as of this encounter
--- OUTSIDE RECORDS SUMMARY | 2024-04-11 03:32 | XMS_ITS | Encounter Summary ---
Author Organization [facility] Address [address] [place] [address] Care Team Providers Care Account Resolution Analyst Name Role Phone Unavailable Primary Care Provider Unavailabl e Reason for Visit * Reason Onset Date Comments Appointment 02/26/2022 Encounter Details Date Type Department Care Team (Late st Contact Info) Description 02/26/2022 Telephone [facility] - Orthopedics [address] [facility] [place] [address] Anabell Avendaño, RN Appointment Social History Tobacco Use Types Packs/Day Years Used Date Smoking Tobacco: Never Passive Smoke Exposure: Never Smokeless Tobacco: Never Alcohol Use Standard Drinks/Week Comments No 0 (1 standard drink = 0.6 oz pur e alcohol) AUDIT-C Answer Date Recorded Q1: How often do you have a drink containing alcohol? Never 02/16/2022 Q2: How many drinks containi ng alcohol do you have on a typical day when you are drinking? Patient does not drink Q3: How often do you have si x or more drinks on one occasion? Never 02/16/2022 Hunger Vital Sign Answer Date Recorded Within the past 12 months, y ou worried that your food would run out before you got the money to buy more. Never true 02/17/20 22 Within the past 12 months, t he food you bought just didn't last and you didn't have money to get more. Never true 02/16/2022 Sex and Gender Information Value Date Recorded Sex Assigned at Not on file Gender Identity Not on file Sexual Orientation Not on file documented as of this encounter Functional Status Functional Status Response Date of Assess ment Is person deaf or have serious hearing difficult y? No 02/16/2022 Is person blind or have serious difficulty seein g? No 02/16/2022 Does person have serious dif ficulty walking/climbing stairs? No 02/16/2022 Does person have difficulty dressing/bathing? No 02/16/2022 Does person have difficulty doing errands alone? No 02/16/2022 Cognitive Status Response Date of Assessm ent Does person have difficulty concentrating/remembering/making decisions? No 02/16/2022 documented as of this encounter Miscellaneous Notes * Telephone Encounter - Anabell Avendaño RN - 02/26/2022 12:26 PM GARAGE MECHANIC Scheduled pt for clinic appt with Dr. Taylor on 03/13. Provided her with clinic details and contact information to call with additional questions or concerns. GE MECHANIC documented in this encounter Plan of Treatment Upcoming Encounters Date Type Department Care Team (Late st Contact Info) Description 06/02/2024 1:45 PM GARAGE MECHANIC Office Visit [facility] - Orthopedics [address] [place] [address], [facility] [place] [address] Deon Taylor MD [address] [place] [id number] documented as of this encounter Visit Diagnoses Not on filedocumented in this encounter
--- OUTSIDE RECORDS SUMMARY | 2024-04-11 03:32 | XMS_ITS | Encounter Summary ---
Author Organization [facility] Address [address] [facility] [place] [address] Care Team Providers Care Mechanical Reliability Engineer Name Role Phone Karrie Phillips MD Primary Care Provider [phone] Encounter Details Date Type Department Care Team (Latest Contact Info) Description 05/15/2022 Travel Social History Tobacco Use Types Packs/Day [...] No 02/16/2022 documented as of this encounter Plan of Treatment Upcoming Encounters Date Type Department Care Team (Late st Contact Info) Description 06/02/2024 1:45 PM PROVIDER NETWORK MANAGER Office Visit [facility] - Orthopedics [address] [place] [address], [facility] [place] [address] Deon Taylor MD [address] [place] [phone] documented as of this encounter Visit Diagnoses Not on filedocumented in this encounter Care Teams Mechanical Reliability Engineer Relationship Specialty Start Date End Date Karrie Phillips MD [address] [place] [id number] PCP - General 03/13/22 documented as of this encounter
--- OUTSIDE RECORDS SUMMARY | 2024-04-11 03:32 | XMS_ITS | Encounter Summary ---
Author Organization [facility] Address [address] [place] [address] Care Team Providers Care Landscape Crew Leader Name Role Phone Karrie Phillips MD Primary Care Provider [phone] Reason for Visit * Auth/Cert (Routine) Specialty Diagnoses / Procedures Referred By Everardo fried Referred To Contact Diagnoses Cervical myelopathy (HCC) cervical myelopathy Procedures FUSION POSTERIOR CERVICAL (PCF) Referral ID Status Reason Start Date Expiration Date Visits Re quested Visits Authorized [id number] 1 1 Encounter Details Date Type Department Care Team (Late st Contact Info) Description 06/04/2022 7:31 AM CHIEF CARDIOPULMONARY TECHNOLOGIST Anesthesia Event [facility] [address] [place] [address] [place] [address] [place] [id number] Marcos Rojas Anes Asst [address] [facility] DE[place] [address] Anesthesia Record Procedure Summary Procedure Name Responsible Anesthesiologist Anesthesia Start Time Anesthesia Stop Time C5-C6 laminectomy, C4-T2 posterior instrumented spinal fusion Chilo Franklin MD 06/04/22 0731 06/04/22 1148 Events Date Time Event Comment 06/04/2022 0731 An Start 0731 Pt In Room 0731 An Start Data 0736 0738 PT Reassessment 0739 Induction 0744 An Intubation 0800 Insert Art Line 0838 Time Out Anesthesia part icipated in timeout at the time documented in the record by nursing 0839 Anes Ready 0840 Proc Start 1134 Proc Stop 1134 An Emergence 1136 Extubation 1141 an stop data 1141 Pt out of Room 1141 ANPTO2 1148 An Stop Meds Name Total ceFAZolin 2,000 mg IVPB 2 g midazolam 2 mg/2mL injection 2 mg fentaNYL 100 mcg/2ml injection 100 mcg lidocaine PF 2% 100 mg propofol 200mg/20mL injection 150 mg succinylcholine 20 mg/mL injection 100 m g phenylephrine 100 mcg/mL syringe 1,900 m cg ePHEDrine injection 50 mg famotidine 20 mg/2mL injection 20 mg ondansetron 4mg/2mL injection 4 mg hydromorphone 2 mg/10mL prefilled syring e 1.6 mg glycopyrrolate 0.4 mg/2mL injection 0.2 mg propofol 500 mg/50 mL 1,490.42 mg remifentanil (Ultiva) 2 mg in 0.9% NaCl IV 50 mL infusion 1.28 mg phenylephrine 20 mg in 250 mL 5.61 mg NS (0.9% NaCl) 1,400 mL Isolyte-S infusion 100 mL lactated ringers infusion 1,000 mL albumin 5% 500 mL * Agents Name Insp. N2O Exp. Sevoflurane Exp. N2O O2 Air Insp. Sevoflurane * Blood No blood administrations on file. Lines, Drains, and Airways Type Details Placement Removal Peripheral IV Date: 06/04/22; Time : 0642; Orientation: Anterior, Distal, Right; Placed By: JON; Tolerance: Well 06/04/22 0642 by Debra Weber RN 06/08/222118 by Sammi Zayas, SANTI ETT Date: 06/04/22; Time : 0744; Placed By: Boyd Devlin Asst; Vent: easy mask; Induction: Standard IV; Blade Type: Video; Blade Size: 3; Laryngoscopy View: Grade 1 (full cords); Intubation Adjuncts: Stylet; Tube: Endotracheal Tube; Placement: Oral; Tube Type: Cuffed-inflated; Tube Size(mm): 7 MM; Depth of Insertion: 21 CM; Measured From: lips; Attempts: 1; Cuff Infated: Air; Verified By: Direct visualization, Bilateral breath sounds, Chest Auscultation, CO2 Monitor 06/04/22 0744 by Marcos Rojas Anes Asscorky 06/04/22 1138 by Marcos Rojas Anes Asst Arterial Line Date: 06/04/22; Time : 0800; Placed By: Lyel Ralph DO; Location: radial; Orientation: Left; Gauge: 20; Anesthetic Used: No; Tolerance: Well, General Anesthesia 06/04/22 0800 by Marcos Rojas Anes Asscorky 06/04/22 1230 by Jelly Calderon RN Urethral Catheter 06/04/22; 0805; EMS; S Maxim; Non-latex; No; 16; 10 mL; Yes, Seal Intact, Silicone Catheter; 1; Well; 06/04/22; 1134 06/04/22 0805 by Delaney López RN 06/04/22 1134 by Chandrika Richardson RN Peripheral IV Date: 06/04/22; Time : 0806; Orientation: Right; Tolerance: General Anesthesia 06/04/22 0806 by Marcos Rojas Anes Asst 06/06/22 0833 by Makenzie Choi RN Procedural Site (Incision) 06/04/22; 1057; Back; luba, gauze, ioban; 06/09/22; 0359 06/04/22 1057 by Delaney López RN 06/09/22 0359 by Generic, Auto Release Drain 06/04/22; 1106; Ness colbert MD; 1; Accordian; Right; Back; 06/07/22; 1130; Per order; Ortho Spine team 06/04/22 1106 by Chandrika Richardson RN 06/07/22 1130 by Makenzie Choi RN Other Wound 06/04/22; 1200; Yes; Anterior, Left, Upper; Arm; 06/09/22; 0359 06/04/22 1200 by Jelly Calderon RN 06/09/22 0359 by Generic, Auto Release documented in this encounter Social History Tobacco [...] and heating? Not hard at all 06/04/2022 [facility] - [facility] [...] place to sleep or slept in a nursing home (including now)? No 06/04/2022 Sex and [...] No 02/16/2022 documented as of this encounter Progress Notes * Brien Madrid DO - 06/05/2022 7:06 AM CST ANESTHESIA POSTOP EVALUATION NOTE Procedure: C5-C6 laminectomy, C4-T2 posterior instrumented spinal fusion Kandace Cole is a 72 year old female Patient Vitals for the past 6 hrs: BP Temp Pulse Resp SpO2 Pain Rating Score #1 Pain Scale/Observation 06/05/22 0340 154/53 97.6 ??F (36.4 ??C) 86 18 97 % -- -- 06/05/22 0400 -- -- -- -- -- 6 N 06/05/22 0539 -- -- -- -- -- 6 N Anesthesia Type: general ETT Pre-op Diagnosis Codes: * Cervical myelopathy (CMS/[facility]) [G95.9] Mental Status: awake, alert, oriented, sufficiently recovered from acute administration of anesthesia to participate in the evaluation and neurologic status has returned to preoperative level Neuro Status: No numbness, tingling or visual disturbances Respiratory Function: natural Cardiac Function: stable Postop Pain: acceptable to the patient Postop Hydration: adequate Postop Nausea: treated/stable Assessment: no apparent anesthetic complications, patient tolerated procedure well and no evidence of recall Patient Disposition: Release from Anesthesia Care NOTABLE EVENTS: No notable events documented. * Chilo Franklin MD - 06/04/2022 12:48 PM CST ANESTHESIA POSTOP EVALUATION NOTE Procedure: C5-C6 laminectomy, C4-T2 posterior instrumented spinal fusion Kandace Cole is a 72 year old female Patient Vitals for the past 6 hrs: BP Temp Pulse Resp SpO2 Pain Rating Score #1 Pain Scale/Observation 06/04/22 1145 174/76 (!) 95.5 ??F (35.3 ??C) 87 13 100 % 9 N 06/04/22 1150 161/77 -- 87 13 100 % -- -- 06/04/22 1155 161/68 -- 89 13 100 % -- -- 06/04/22 1200 157/71 -- 88 11 100 % 8 -- 06/04/22 1205 134/67 -- 85 15 100 % -- -- 06/04/22 1210 144/60 -- 86 21 100 % -- -- 06/04/22 1215 143/63 -- 89 15 100 % -- -- 06/04/22 1220 151/61 -- 92 (!) 7 96 % 8 N 06/04/22 1225 149/64 -- 89 24 95 % -- -- 06/04/22 1229 149/64 -- 89 (!) 8 100 % -- -- 06/04/22 1230 135/60 -- 89 (!) 8 100 % -- -- 06/04/22 1235 134/58 -- 91 30 98 % -- -- 06/04/22 1240 134/59 -- 96 17 98 % 8 -- 06/04/22 1245 137/66 -- 92 9 98 % -- -- Anesthesia Type: general ETT Pre-op Diagnosis Codes: * Cervical myelopathy (CMS/HCC) [G95.9] Mental Status: awake, alert, arousable and oriented Neuro Status: No numbness, tingling or visual disturbances Respiratory Function: natural Cardiac Function: stable Postop Pain: acceptable to the patient Postop Hydration: adequate Postop Nausea: none Assessment: no apparent anesthetic complications Patient Disposition: Follow Up Needed NOTABLE EVENTS: No notable events documented. F CARDIOPULMONARY TECHNOLOGIST * Chilo Franklin MD - 05/15/2022 12:45 PM CST ANESTHESIA PREOPERATIVE EVALUATION NOTE Procedure: C5-C6 laminectomy, C4-T2 posterior instrumented spinal fusion Vitals: Patient Vitals for the past 6 hrs: BP Temp Pulse Resp SpO2 05/15/22 1222 130/54 98.4 ??F (36.9 ??C) 72 16 100 % LMP: No LMP recorded (lmp unknown). Patient has had a hysterectomy. OB Status: Hysterectomy ANESTHESIA PRE-EVALUATION NOTE History of Present Illness: This is a 72-year-old female who is preoperatively evaluated for above procedure. Patient has a hx of neck pain, b/l hand numbness, and RUE radiculopathy. MRI showed moderate to severe central canal stenosis C5-C6. Of note, patient has had a previous ACDF (2006) at this level. Subsequently undergoing above procedure for further management. Of note, patient reports that she can walk 1-2 blocks after which time she often becomes dizzy and breathless. However, she reports that she can climb 2 flights of stairs. Denies chest pain. Denies hx of MA, heart failure, arrhythmias, strokes, seizures. Other PMH significant for COPD, ABHINAV not on CPAP, DM2, HTN, HLD, CKD3b, TMJ, Ferrell's esophagus, glaucoma, migraines, depression, fibromyalgia. Home meds include bupropion, citalopram, escitalopram, exenatide, pravastatin, lisinopril, quetiapine, carvedilol, furosemide, calcitriol, pantoprazole. Allergies include latex, cyclobenzaprine, fluoxetine, naproxen, bactrim, eggs, urecholine. The patient is a current non-smoker. The patient was instructed to abstain from smoking on day of procedure. Physical Exam: Orientation X3 Airway/Mallampati Score: I Mouth Opening Distance: 3 fingerwidths Neck ROM: limited TM Distance: > 3 FB Teeth: dentures/partials upper Heart: normal - S1 S2 Lungs: clear to ausculation bilaterally Abdomen Exam: soft and normal Review of Systems: History of anesthetic complications: No Sleep Apnea Risk: Yes, CPAP - non compliant GERD: Yes, poorly controlled Poor Exercise Tolerance: Yes Recent Chest Pain: No Shortness of Breath: Yes (chronic dyspnea on exertion) AICD/Pacemaker: No Renal Disease: Yes (CKD) Diagnostic Tests: ECG(s) reviewed: Yes Echo(s) reviewed: Yes. Lab(s) reviewed: Yes. Other Findings: TTE 01/2022: Summary Left ventricular systolic function is normal with an ejection fraction by Biplane Method of Discs of 72 %. Severe mitral annular calcification with mild mitral stenosis. left atrial enlargement. There is no evidence of a right to left shunt by microbubble saline contrast at rest and with Valsalva maneuver. Transthoracic saline contrast echocardiograms have limited sensitivity and specificity for detecting patent foramen ovale and small atrial level shunts. Consider YUVAL if high index of suspicion for PFO or ASD. Mild lipomatous hypertrophy of the atrial septum. ANESTHESIA PLAN ASA Score: 3 NPO Status: No solids since midnight and No liquids within 2 hours Anesthesia Plan: general and TIVA Planned Induction: intravenous Planned Adjuncts: art line Planned Postop Destination: PACU Anesthetic plan was discussed with: patient, family Anesthetic Plan discussion was: Consented Use of blood products were discussed with: patient, family Use of blood product discussion was: Consented The patient's procedural Anesthetic Plan was discussed with the FIELD CANE SCALER HELPER and resident. Overall additional findings/comments: Discussed risks of GETA including but not limited to dental injuries, problems with the heart, breathing, bleeding, adverse medication reactions that can lead toheart attack, stroke, , etc. ??Also discussed possible arterial line, possible central line, possible blood transfusion, possible post-op mechanical ventilation, possible YUVAL. Patient expressed understanding and wishes to proceed. I have reviewed the patient's chart and have interviewed the patient. I have examined the patient and have reviewed the plan with the patient. I agree with the documentation and have discussed the anesthesia plan and the patient agrees. ?? Yes - I attest to documenting, updating or reviewing a patient's current medications using all immediate resources available on the date of the encounter. This list must include ALL known prescriptions, [id number], herbals, and vitamin/mineral/dietary (nutritional) supplements AND must contain the medications' name, dosages, frequency and route of administration.. BMI, Height, Weight Tobacco History Estimated body mass index is 25.55 kg/m?? as calculated from the following: Height as of this encounter: 1.549 m (5' 1 ). Weight as of this encounter: 61.3 kg (135 lb 3.2 oz). Social History Tobacco Use Smoking Status Never ??? Passive exposure: Never Smokeless Tobacco Never Alcohol History Drug History Social History Substance and Sexual Activity Alcohol Use No Social History Substance and Sexual Activity Drug Use Never Outpatient Medications: Inpatient Medications: Outpatient Medications Marked as Taking for the 05/15/22 encounter (Hospital Encounter) with [facility] 1 Medication Sig Last Dose ??? acetaminophen Take 2 (two) tablets by mouth every 6 hours as needed Maximum allowable Acetaminophen amount = 4 Grams (4000 mg) / 24 hours. ??? artificial tears Instill 1 (one) drop into both eyes every 4 hours as needed ??? buPROPion SR 12hr Take 1 (one) tablet by mouth 2 times daily ? ? calcitriol Take 1 (one) capsule by mouth every Saturday, Saturday & Saturday No current facility-administered medications for this encounter. Allergies: Allergies Allergen Reactions ??? Latex ??? Cyclobenzaprine ??? Fluoxetine ??? Naproxen ??? Sulfamethoxazole W-Trimethoprim ??? Eggs ??? Other demeral ??? Urecholine [Bethanechol Chloride] Relevant Problems No relevant active problems Problem List: Patient Active Problem List Diagnosis Date Noted ??? Benign essential hypertension 03/13/2022 Priority: Not [...] closed fractures of facial bone, initial encounter ([facility]) 02/15/2022 Priority: Not Prioritized ??? Nausea 01/10/2022 [...] 12/07/2021 Priority: Not Prioritized ??? Systemic sclerosis ([facility]/HCC) 12/07/2021 Priority: Not Prioritized ??? Sprain of ankle 12/07/2021 Priority: Not Prioritized ??? Sciatica 12/07/2021 Priority: Not Prioritized ??? Recurrent major depression in remission ([facility]) 12/07/2021 Priority: Not Prioritized ??? Polyp of colon 12/07/2021 Priority: Not Prioritized ??? Perineal pain 12/07/2021 Priority: Not Prioritized ??? Nonexudative age-related macular degeneration 12/07/2021 Priority: Not Prioritized ??? 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 Multiple bruises 12/07/2021 Priority: Not Prioritized ??? Mixed collagen vascular disease ([facility]) 12/07/2021 Priority: Not Prioritized ??? Paronychia of toe of right foot 07/25/2021 Priority: Not Prioritized ??? Onychomycosis of toenail 07/17/2021 Priority: Not Prioritized ??? Chronic kidney disease 03/30/2019 Priority: Not Prioritized ??? Chronic obstructive pulmonary disease ([facility]) 03/30/2019 Priority: Not Prioritized ??? Hyposmolality 03/30/2019 Priority: Not Prioritized ??? Ulnar neuropathy 03/30/2019 Priority: Not Prioritized ??? Raynaud's disease 03/30/2019 Priority: Not Prioritized ??? Dyspnea on exertion 02/23/2019 Priority: Not Prioritized ??? Type 2 diabetes mellitus ([facility]) 02/23/2019 Priority: Not Prioritized ??? Type 2 diabetes mellitus with stage 3 chronic kidney disease, without long- term current use of insulin ([facility]) 02/23/2019 Priority: Not Prioritized ??? Mixed hyperlipidemia 02/23/2019 Priority: Not Prioritized ??? Degeneration of cervical intervertebral disc 12/09/2009 Medical History: Past Medical History: Diagnosis Date ??? Anemia ??? Diabetes ??? Disease of esophagus ??? Fibromyalgia ??? Glaucoma ??? HTN (hypertension) ??? Macular degeneration ??? Osteoarthritis ??? Raynaud disease ??? Ulnar neuropathy Surgical History: Past Surgical History: Procedure Laterality Date ??? CARPAL TUNNEL SURGERY ??? Cervical Laminectomy ??? Hysterectomy ??? NASAL POLYPECTOMY ??? Rotator Cuff Repair ??? 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 Patient has had a hysterectomy. Hysterectomy OB History No obstetric history on file. Covid Vaccine: Lab Results: Recent Labs Component Name 02/15/22 1507 SARSCOV2 Not detected Recent Labs Base Name 02/16/22 0657 [id number] 112 SPECIMENTYPE Cap Fingerstick Recent Labs Component Name 02/17/22 0612 WBC 5.8 RBC 3.18* HCT 28.3* HGB 9.6* PLTCOUNT 259 MCV 89.0 MCH 30.2 MCHC 33.9 MPV 9.9 Recent Labs Component Name 02/15/22 0335 BLOODU Negative WBCU 0-5 NITRITE Negative PROTEINU Negative Recent Labs Component Name 02/19/22 0429 POTASSIUM 4.5 CALCIUM 9.1 CO2 22 GLUCOSE 83 BUN 18 CREATININE 1.58* Recent Labs Component Name 02/16/22 0757 MAGNESIUM 1.8 Recent Labs Component Name 02/16/22 0757 PHOS 3.9 Recent Labs Component Name 02/16/22 0757 TSH 1.522 Recent Labs Result Component Current Result Troponin I 0.027 (02/14/2022) Recent Labs Result Component Current Result Alkaline Phosphatase 58 (02/14/2022) ALT 13 (02/14/2022) Anion Gap 11 (02/19/2022) AST 16 (02/14/2022) eGFR by CKD-EPI 35 (L) (02/19/2022) PAT evaluation start: (INSERT IN SIDE-BAR IMMEDIATELY AFTER DIAGNOSTIC TESTS. (F2 left / right click to select options below. CTRL-Z to undo) - if BP is poorly controlled (eg SBP >180 or DBP >110) then contact Dr. Perrin or AIC This evaluation was based on PAT clinic visit I. Perioperative Cardiac Risk Index Stratification based on 2014 ACC/AHA Guidelines for patients undergoing noncardiac surgery Perioperative risk of a Major Adverse Cardiac Event (MACE) during hospitalization. Add one point (0-6) for each positive RCRI (Revised Cardiac Risk Indicator) 1. Is the surgery high-risk? YES -major Neurosurgical spine or craniotomy 2. History of ischemic heart disease? NO If yes then paste summary of most recent cath / stress tests under Other Additional Findings/Comments section above: 3. History of CHF? no If yes then paste summary of most recent TTE / YUVAL under Other Additional Findings/Comments sectionabove: New Murmur? no if yes and without recent echocardiogram then may need TTE contact Dr. Perrin or ZORAN 4. History of cerebrovascular disease? Prior TIA or stroke no If yes then paste summary of most any relevant neurovascular imaging or carotid duplex results under Other Additional Findings/Comments section above: Carotid bruit ? no if yes and symptomatic then may need carotid duplex - contact Dr. Perrin or ZORAN 5. Insulin-dependent Diabetes? NO 6. Preoperative creatinine > 2 mg/dl? no Baseline Cr? ~1.5-1.7 Total RCRI / MACE score 1 Point >= 0.9% If MACE < 1%, no further testing required. Proceed to surgery. Patient is at low risk of MACE. If MACE > 1% Elevated risk. Need to assess the patient's functional capacity. 4 METs = Can walk up a flight of steps or a hill or walk on level ground at 3 mph If > 4 METs. Proceed to surgery. If < 4 METs or unknown functional capacity then discuss with attending, as further workup may beindicated. II. Consults: YES - cardiology and YES - other nephrology Copy and paste relevant results. Clearance obtained per Cardiology and Nephrology. Both cleared the patient for surgery. Results available in media tab. Follow up N/A III. CIEDs Does patient have a CIED (cardiovascular implantable electronic device eg: PM, AICD)? no If yes then copy and paste interrogation report here. Timing of interrogation should be within 1 year for PM and Within 6 months for AICD [place] Information needed (cloth winder machine operator, mode, indication for CIED, battery life, magnet function): If Biotronik device AND PM dependent AND surgical site above umbilicus then call local office at [phone] to schedule reprogramming of CIED (into asynchronous mode for PM and or turn off AICD if magnet mode not option) and write plan here. Please also call Dr Perrin or ZORAN. IV. Anticoagulants Is patient receiving chronic antiplatelet/ anticoagulant medications? What is periop plan ? NO (patients with mechanical heart valves OR atrial fib on coumadin with a CHADS- VASc > 7 OR recentVTE within 3 months may need bridging) Follow up N/A V. Previous blood transfusion? no If yes AND EBL > 250ml then patient needs a recent T&S. Order T&S if none recently. If this is a phone review then patient needs to come in PRIOR to DOS for a T&S (call Dr Perrin or ZORAN) to arrange. Order a 2nd T&S (re-type) for DOS If no previous blood product transfusion AND EBL >250 then order a T&S for DOS only VII. Known ABHINAV or STOP-BANG> 5 yes Snoring, feel Tired, Observed apnea, high blood Pressure, BMI>35, Age > 50, Neck circumference > 18 VIII. Known or suspected difficult airway unknown and complete previous airway management section above If yes then: update Epic problem list to include: difficult airway and call Dr. Marychuy or AIC IX. Frailty screen: No data recorded X. Suboxone (Buprenorphine / Naloxone) therapy? N/A XI. Most recent EKG (summarize, do not copy and paste): 02/15/2022 HR 73 NSR. EKG needed within 6 months if: (ASA >= 3 OR any RCRI) AND non-low risk procedure XII. Additional testing needed within 3 months prior to DOS (if possible, else on DOS) - CBC w/o diff if ASA >= 3 OR expected blood loss >250 OR previously abnormal - BMP if ASA >= 3 AND non low- risk procedure / previously abnormal - CMP (instead of BMP) for patient with chronic liver disease or previously abnormal -PT/ PTT/ INR if recent use of anticoagulants OR scheduled for major vascular procedures including aortic and carotid stents / aneurysm coiling / TIPS Additional testing needed on DOS : - EPOC blood glucose for patients w/ DM - EPOC whole blood K+ for patient with ESRD or poorly controlled K+ Labs ordered today including PAT and surgeon orders: CBC, BMP and T&S Labs/ tests ordered or in need of review on DOS: T&S and POC glucose Summary: Kandace Cole is a 72 year old female presenting for C5-C6 laminectomy, C4-T2 posterior instrumented spinal fusion. They have an ASA score of 3 and a RCRI / MACE score of 1 Point >= 0.9% Follow up results - have ALL the above ordered labs and vital signs been reviewed? YES - with the following notable abnormalities Cr 1.53, Hgb 9.9 They ARE OPTIMIZED - PAT EVALUATION COMPLETE Dallin Oliver DO 05/15/2022 12:59 PM for this procedure. Preoperative plan was not discussed w/ PAT attending (date and name). (please note that ALL RESIDENT charts must be discussed with the PAT director or designated person) PLEASE REMEMBER TO REFRESH THE VITAL SIGNS ABOVE BEFORE CLOSING ENCOUNTER Addendum 05/16/22: Labs reviewed Luiza Fernandez MD PAT evaluation end: F CARDIOPULMONARY TECHNOLOGIST documented in this encounter Procedure Notes * Marcos Rjoas Anes Asst - 06/04/2022 9:09 AM CSTAssociated Order(s): ETT Placement Endotracheal Tube Placement: Patient Location: OR. Intubation Event Date/Time: 06/04/2022 7:44 AM Procedure: intubation ([id number]). Procedure Section: Sedation: under general anesthesia. Indications for Airway Management: anesthesia Induction: standard IV Patient Position: sniffing Mask Ventilation: easy. Blade Type: Video (ProVue [...] auscultation and CO2 monitor Tube secured with: adhesive tape. Dentition unchanged? Yes Difficult Airway? No. Procedure Start Time: 06/04/2022 7:44 AM. Staff Section Anesthesia Provider: Marcos Rojas Anes Asst, Performed the procedure Provider #1: Chilo Franklin MD. Additional Comments: Theodore CEJA performed intubation under direct supervision.. F CARDIOPULMONARY TECHNOLOGIST * Marcos Rojas Anes Asst - 06/04/2022 9:08 AM CSTAssociated Order(s): Arterial Line Placement Arterial Line Placement Procedure Note Patient Location: OR. Procedure: Arterial Line ([id number]). Procedure Section Indications: continuous blood pressure monitoring and blood sampling needed. Skin Prep: Chloraprep. Orientation: Left. Site: radial. Site Identification: ultrasound guided with sterile sleeve and gel. Sterile Technique: cap and mask. Gauge: 20. Seldinger Technique Used? Yes Number of Attempts: 1. Line Secured with: Tegaderm. Procedure Tolerance: tolerated well and performed while patient under general anesthesia. Events: none. Procedure Start Time: 06/04/2022 8:00 AM. Local Anesthetic Used? No Staff Section Anesthesia Provider: Lyle Ralph DO, Performed the procedure Provider #1: Marcos Rojas Anes Asst. F CARDIOPULMONARY TECHNOLOGIST documented in this encounter Miscellaneous Notes * Addendum Note - Brien Madrid DO - 06/05/2022 7:08 AM CST Addendum created 06/05/22707 by Brien Madrid DO Clinical Note Signed F CARDIOPULMONARY TECHNOLOGIST * Anesthesia Transfer of Care - Adi Lee MD - 06/04/2022 11:47 AM CHIEF CARDIOPULMONARY TECHNOLOGIST ANESTHESIA TRANSFER OF CARE NOTE Today's Date: 06/04/2022 Date of : 1950 Patient: Kandace Cole Procedure(s): C5-C6 laminectomy, C4-T2 posterior instrumented spinal fusion Surgeon(s): Primary: Deon Taylor MD Preop Diagnosis: Pre-op Diagnois: * Cervical myelopathy (CMS/HCC) [G95.9] Pre-op Meds (From admission, onward) Start Stop Status Route Frequency Ordered 06/04/22 0545 lactated ringers infusion -- Dispensed IV PRE-OP CONTINUOUS 06/04/22 0532 Post-op Diagnosis: * Cervical myelopathy (CMS/HCC) [G95.9] . Allergies Allergen Reactions ??? Latex ??? Cyclobenzaprine ??? Fluoxetine ??? Naproxen ??? Sulfamethoxazole W-Trimethoprim ??? Eggs ??? Other demeral ??? Urecholine [Bethanechol Chloride] Vitals: No data found. Lines, Drains, and Airways Type Details Placement Removal Peripheral IV Date: 06/04/22; Time: 06; Orientation: Anterior, Distal, Right; Location: Wrist; Placed By: JON; Gauge: 18 Gauge; Locals: None; Tolerance: Well 06/04/22 0642 by Debra Weber, SANTI ETT Date: 06/04/22; Time: 0744; Placed By: Boyd Devlin; Vent: easy mask; Induction: Standard IV; Blade Type: Video; Blade Size: 3; Laryngoscopy View: Grade 1 (full cords); Intubation Adjuncts: Stylet; Tube: Endotracheal Tube; Placement: Oral; Tube Type: Cuffed-inflated; Tube Size(mm): 7 MM; Depth of Insertion: 21 CM; Measured From: lips; Attempts: 1; Cuff Infated: Air; Verified By: Direct visualization, Bilateral breath sounds, Chest Auscultation, CO2 Monitor 06/04/22 0744 by Marcos Rojas Anes Asst 06/04/22 1138 by Marcos Rojas Anes Asst Arterial Line Date: 06/04/22; Time: 0800; Placed By: Lyle Ralph DO; Location: radial; Orientation:Left; Gauge: 20; Anesthetic Used: No; Tolerance: Well, General Anesthesia 06/04/22 0800 by Marcos Rojas Anes Asst Peripheral IV Date: 06/04/22; Time: 0806; Orientation: Right; Location: Forearm; Gauge: 18 Gauge; Tolerance: General Anesthesia 06/04/22 0806 by Marcos Rojas Anes Asst Drain 06/04/22; 1106; Ness Taylor MD; 1; Accordian; Right; Back 06/04/22 1106 by Chandrika Richardson RN Intraprocedure I/O Totals Intake Isolyte-S infusion 100.00 mL NS (0.9% NaCl) 1000.00 mL albumin 5% 500.00 mL lactated ringers infusion 1000.00 mL Total Intake 2600 mL Output Urine 250 mL Estimated Blood Loss 225 mL Total Output 475 mL Net Net Volume 2125 mL Patient Transfer Location: PACU Transport Airway: spontaneous respirations and supplemental O2 Transport Monitoring: heart rate and continuous pulse [...] understanding of report from the receiving PACUteam. Adi Lee MD F CARDIOPULMONARY TECHNOLOGIST documented in this encounter Plan of Treatment Upcoming Encounters Date Type Department Care Team (Late st Contact Info) Description 06/02/2024 1:45 PM CHIEF CARDIOPULMONARY TECHNOLOGIST Office Visit [facility] - Orthopedics [address] [place] [address], [facility] [place] [address] Deon Taylor MD [address] [place] [address] documented as of this encounter Procedures Procedure Name Priority Date/Time Associated Diagnosis Comments ENDOTRACHEAL TUBE NOTE Routine 06/04/2022 9:09 AM CHIEF CARDIOPULMONARY TECHNOLOGIST ARTERIAL LINE NOTE Routine 06/04/2022 9: 08 AM CHIEF CARDIOPULMONARY TECHNOLOGIST documented in this encounter Results * ETT LINE PERFORMABLE (06/04/2022 9:09 AM CHIEF CARDIOPULMONARY TECHNOLOGIST) Narrative Marcos Rojas Anes Asst - 06/04/2022 9:09 AM CHIEF CARDIOPULMONARY TECHNOLOGIST Marcos Rojas Anes Asst ? 06/04/2022 ??9:11 AM Endotracheal Tube Placement: ? Patient Location: OR. Intubation Event Date/Time: ??06/04/2022 7:44 AM Procedure: intubation ([id number]). Procedure Section: ?? Sedation: under general anesthesia. [...] * ARTERIAL LINE PERFORMABLE (06/04/2022 9:08 AM CHIEF CARDIOPULMONARY TECHNOLOGIST) Narrative Marcos Rojas Anes Asst - 06/04/2022 9:08 AM CHIEF CARDIOPULMONARY TECHNOLOGIST Marcos Rojas Anes Asst ? 06/04/2022 ??9:08 AM Arterial Line Placement Procedure Note Patient Location: OR. Procedure: Arterial Line ([id number]). Procedure Section ?? Indications: continuous blood pressure [...] Asst. Chilo Franklin MD GENERAL ANESTHESIA O TED documented in this encounter Visit Diagnoses Not on filedocumented in this encounter Administered Medications Inactive Administered Medications - up to 3 most recent administrations Medication Order MAR Action Action Date Dose Rate Site 0.9% NaCl infusion Intravenous, CONTINUOUS PRN, Starting on 06/04/22 at 0747, Until Sat06/04/22 at 1144, Anesthesia Intra-op $ New Bag/Syringe 06/04/2022 7:47 AM CHIEF CARDIOPULMONARY TECHNOLOGIST albumin human 5 % infusion Intravenous, CONTINUOUS PRN, Starting on Sat06/04/22 at 0920, Until Sat06/04/22 at 1144, Anesthesia Intra-op $ New Bag/Syringe 06/04/2022 9:20 AM CHIEF CARDIOPULMONARY TECHNOLOGIST ceFAZolin (Ancef) 2,000 mg in 50 mL IVPB Intravenous, PRN, Starting on Sat06/04/22 at 0821, Until Sat06/04/22 at 1144, Anesthesia Intra-op $ Given 06/04/2022 8:21 AM CHIEF CARDIOPULMONARY TECHNOLOGIST 2 g ePHEDrine injection Intravenous, PRN, Starting on Sat06/04/22 at 0837, Until Sat06/04/22 at 1144, Anesthesia Intra-op $ Given 06/04/2022 9:36 AM CHIEF CARDIOPULMONARY TECHNOLOGIST 10 mg $ Given 06/04/2022 9:10 AM CHIEF CARDIOPULMONARY TECHNOLOGIST 10 mg $ Given 06/04/2022 9:00 AM CHIEF CARDIOPULMONARY TECHNOLOGIST 10 mg famotidine (Pepcid) injection Intravenous, PRN, Starting on Sat06/04/22 at 0928, Until Sat06/04/22 at 1144, Anesthesia Intra-op $ Given 06/04/2022 9:28 AM CHIEF CARDIOPULMONARY TECHNOLOGIST 20 mg fentaNYL (PF) (Sublimaze) injection Intravenous, PRN, Starting on Sat06/04/22 at 0738, Until Sat06/04/22 at 1144, Anesthesia Intra-op $ Given 06/04/2022 8:48 AM CHIEF CARDIOPULMONARY TECHNOLOGIST 25 mcg $ Given 06/04/2022 8:00 AM CHIEF CARDIOPULMONARY TECHNOLOGIST 25 mcg $ Given 06/04/2022 7:38 AM CHIEF CARDIOPULMONARY TECHNOLOGIST 50 mcg glycopyrrolate (Robinul) injection Intravenous, PRN, Starting on Sat06/04/22 at 0926, Until Sat06/04/22 at 1144, Anesthesia Intra-op $ Given 06/04/2022 9:26 AM CHIEF CARDIOPULMONARY TECHNOLOGIST 0.2 mg HYDROmorphone HCl-NaCl 2-0.9 MG/10ML-% SOSY Intravenous, PRN, Starting on Sat06/04/22 at 1058, Until Sat06/04/22 at 1144, Anesthesia Intra-op $ Given 06/04/2022 11:48 AM CHIEF CARDIOPULMONARY TECHNOLOGIST 0.6 mg $ Given 06/04/2022 11:43 AM CHIEF CARDIOPULMONARY TECHNOLOGIST 0.6 mg $ Given 06/04/2022 10:58 AM CHIEF CARDIOPULMONARY TECHNOLOGIST 0.4 mg isolyte-S pH 7.4 infusion Intravenous, CONTINUOUS PRN, Starting on Sat06/04/22 at 0936, Until Sat06/04/22 at 1144, Anesthesia Intra-op $ New Bag/Syringe 06/04/2022 9:36 AM CHIEF CARDIOPULMONARY TECHNOLOGIST lactated ringers infusion at 20 mL/hr, Intravenous, PRE-OP CONTINUOUS, Starting on Sat06/04/22 at 0545, Until Sat06/04/22 at 1314, Pre-op Restarted 06/04/2022 9:36 AM CHIEF CARDIOPULMONARY TECHNOLOGIST $ New Bag/Syringe 06/04/2022 6:42 AM CHIEF CARDIOPULMONARY TECHNOLOGIST 20 mL/ hr lidocaine HCl (PF) (Xylocaine MPF) 2 % injection Intravenous, PRN, Starting on Sat06/04/22 at 0739, Until Sat06/04/22 at 1144, Anesthesia Intra-op $ Given 06/04/2022 7:39 AM CHIEF CARDIOPULMONARY TECHNOLOGIST 100 mg midazolam (Versed) injection Intravenous, PRN, Starting on Sat06/04/22 at 0816, Until Sat06/04/22 at 1144, Anesthesia Intra-op $ Given 06/04/2022 8:16 AM CHIEF CARDIOPULMONARY TECHNOLOGIST 1 mg $ Given 06/04/2022 7:31 AM CHIEF CARDIOPULMONARY TECHNOLOGIST 1 mg ondansetron (Zofran) injection Intravenous, PRN, Starting on Sat06/04/22 at 1055, Until Sat06/04/22 at 1144, Anesthesia Intra-op $ Given 06/04/2022 10:55 AM CHIEF CARDIOPULMONARY TECHNOLOGIST 4 mg phenylephrine 100 mcg/mL injection Intravenous, PRN, Starting on Sat06/04/22 at 0813, Until Sat06/04/22 at 1144, Anesthesia Intra-op $ Given 06/04/2022 11:19 AM CHIEF CARDIOPULMONARY TECHNOLOGIST 100 mcg $ Given 06/04/2022 11:05 AM CHIEF CARDIOPULMONARY TECHNOLOGIST 200 mcg $ Given 06/04/2022 10:19 AM CHIEF CARDIOPULMONARY TECHNOLOGIST 200 mcg phenylephrine 20 mg in 250 mL NaCl 0.9% infusion Intravenous, CONTINUOUS PRN, Starting on Sat06/04/22 at 0749, Until Sat06/04/22 at 1144, Anesthesia Intra-op Rate Change 06/04/2022 11:30 AM CHIEF CARDIOPULMONARY TECHNOLOGIST 0.1 mcg/kg/min 4.538 mL/hr Rate Change 06/04/2022 11:24 AM CHIEF CARDIOPULMONARY TECHNOLOGIST 0.3 mcg/kg/min 13.613 mL/hr Rate Change 06/04/2022 8:54 AM CHIEF CARDIOPULMONARY TECHNOLOGIST 0.4 mcg/kg/min 18.15 mL /hr propofol (Diprivan) infusion Intravenous, CONTINUOUS PRN, Starting on Sat06/04/22 at 0749, Until Sat06/04/22 at 1144, Anesthesia Intra-op Rate Change 06/04/2022 10:40 AM CHIEF CARDIOPULMONARY TECHNOLOGIST 180 mcg/kg/min 65.34 mL/hr Rate Change 06/04/2022 10:36 AM CHIEF CARDIOPULMONARY TECHNOLOGIST 160 mcg/kg/min 58.08 m L/hr Rate Change 06/04/2022 10:33 AM CHIEF CARDIOPULMONARY TECHNOLOGIST 150 mcg/kg/min 54.45 m L/hr propofol (Diprivan) injection Intravenous, PRN, Starting on Sat06/04/22 at 0739, Until Sat06/04/22 at 1144, Anesthesia Intra-op $ Given 06/04/2022 7:40 AM CHIEF CARDIOPULMONARY TECHNOLOGIST 50 mg $ Given 06/04/2022 7:39 AM CHIEF CARDIOPULMONARY TECHNOLOGIST 100 mg remifentanil (Ultiva) 2 mg in 0.9% NaCl IV 50 mL infusion Intravenous, CONTINUOUS PRN, Starting on Sat06/04/22 at 0749, Until Sat06/04/22 at 1144, Anesthesia Intra-op Rate Change 06/04/2022 11:04 AM CHIEF CARDIOPULMONARY TECHNOLOGIST 0.02 mcg/kg/min 1.815 mL/hr Rate Change 06/04/2022 10:59 AM CHIEF CARDIOPULMONARY TECHNOLOGIST 0.03 mcg/kg/min 2.723 mL/hr Rate Change 06/04/2022 10:54 AM CHIEF CARDIOPULMONARY TECHNOLOGIST 0.1 mcg/kg/min 9.075 m L/hr succinylcholine (Anectine) injection Intravenous, PRN, Starting on Sat06/04/22 at 0741, Until Sat06/04/22 at 1144, Anesthesia Intra-op $ Given 06/04/2022 7:41 AM CHIEF CARDIOPULMONARY TECHNOLOGIST 100 mg documented in this encounter Care Teams Landscape Crew Leader Relationship Specialty Start Date End Date Karrie Phillips MD [address] [place] [address] PCP - General 03/13/22 documented as of this encounter
--- OUTSIDE RECORDS SUMMARY | 2024-04-11 03:32 | XMS_ITS | Encounter Summary ---
Author Organization [facility] Address [address] [place] [address] Care Team Providers Care Field Administrative Assistant Name Role Phone Karrie Phillips MD Primary Care Provider [phone] Encounter Details Date Type Department Care Team (Latest Contact Info) Description 05/15/2022 12:00 PM TECHNICIAN TERMINAL AND REPEATER - 05/15/2022 1:26 PM [facility] Hospital Encounter [facility] PAT [address] [place] [phone] Unknown, Provider Discharge Disposition: Home or Self Care Anesthesia Record Procedure Summary Procedure Name Responsible [...] Room 1141 ANPTO2 1148 An Stop Meds * Agents No agents on file. * Blood No blood administrations on file. Lines, Drains, and Airways Type Details Placement Removal Peripheral IV Date: 06/04/22; Time : 0642; Orientation: Anterior, Distal, Right; Placed By: JON; Tolerance: Well 06/04/22 0642 by Debra Weber RN 06/08/22 2119 by Sammi Zayas RN ETT Date: 06/04/22; Time : 0744; Placed By: Boyd Devlin; Vent: easy [...] Date: 06/04/22; Time : 0800; Placed By: Lyle Ralph DO; Location: radial; Orientation: Left; Gauge: 20; Anesthetic Used: No; Tolerance: Well, General Anesthesia 06/04/22 0800 by Marcos Rojas Anes Asst 06/04/22 1230 by Jelly Calderon RN Urethral Catheter 06/04/22; 0805; EMS; Abad Pan; Non-latex; No; 16; 10 mL; Yes, Seal [...] Sign Reading Time Taken Comments Blood Pressure 130/54 05/15/2022 12:22 PM TECHNICIAN TERMINAL AND REPEATER Pulse 72 05/15/2022 12:22 PM TECHNICIAN TERMINAL AND REPEATER Temperature 36.9 ??C (98.4 ??F) 05/15/2022 12:[address] Respiratory Rate 16 05/15/2022 12:22 PM TECHNICIAN TERMINAL AND REPEATER Oxygen Saturation 100% 05/15/2022 12:22 PM TECHNICIAN TERMINAL AND REPEATER Inhaled Oxygen Concentration - - Weight 61.3 kg (135 lb 3.2 oz) 05/15/2022 12:22 PM TECHNICIAN TERMINAL AND REPEATER Height 154.9 cm (5' 1 ) 05/15/2022 12:22 PM TECHNICIAN TERMINAL AND REPEATER Body Mass Index 25.55 05/15/2022 12:22 PM TECHNICIAN TERMINAL AND REPEATER documented in this encounter Functional Status Functional [...] No 02/16/2022 documented as of this encounter Medications at [...] mouth every evening 06/08/2022 saline nasal spray ([place]; Baby [place]) 0.65 % nasal spray [place] 1 (one) spray into each nostril as needed for Dry Nose 15 mL 02/19/2022 vitamin D3 (Cholecalciferol) 10 MCG (400 UNIT) tablet Take 2 (two) tablets by mouth once daily 06/09/2022 calcitriol (Rocaltrol) 0.25 MCG capsule Take 1 (one) capsule by mouth every Saturday, Saturday & Saturday02/19/2022 06/08/2022 Cholecalciferol (VITAMIN D3 PO) Take 2,000 mg by mouth once daily 06/08/2022 citalopram (CeleXA) 20 MG tablet Take 1 (one) tablet by mouth once daily 02/20/2022 06/08/2022 escitalopram (Lexapro) 20 MG tablet Take 1 (one) tablet by mouth once daily 02/20/2022 06/23/2022 Exenatide ER (Bydureon BCise) 2 MG/0.85ML AUIJ Bydureon BCise 2 mg/0.85 mL subcutaneous auto-injector INJECT 2 MG SUBCUTANEOUS EVERY WEEK 06/08/2022 furosemide (Lasix) 20 MG tablet Take 0.5 (one-half) tablet by mouth once daily 02/20/2022 06/08/2022 Multiple Vitamins-Minerals (PreserVision AREDS 2) capsule Take 2 (two) capsules by mouth 2 times daily QUEtiapine (SEROquel) 200 MG tablet Take 1 (one) tablet by mouth once daily 02/20/2022 06/08/2022 documented as of this encounter Plan of Treatment Upcoming Encounters Date Type Department Care Team (Late st Contact Info) Description 06/02/2024 1:45 PM TECHNICIAN TERMINAL AND REPEATER Office Visit [facility] - Orthopedics [address] [place] [address], [facility] [place] [address] Deon Taylor MD [address] [place] [address] documented as of this encounter Results * TYPE + SCREEN PANEL (05/15/2022 1:52 PM TECHNICIAN TERMINAL AND REPEATER) Antibody Screen NEG 3:13 PM TECHNICIAN TERMINAL AND REPEATER [facility] BLOOD [facility] LAB ABO Rh A POS 05/15/2022 3:13 PM TECHNICIAN TERMINAL AND REPEATER [facility]OD [facility] Blood Bank BLOOD SPECIMEN / Unknown Lab Venipuncture / Unknown 05/15/2022 1:52 PM TECHNICIAN TERMINAL AND REPEATER 05/15/2022 2:23 PM TECHNICIAN TERMINAL AND REPEATER Provider Unknown LAB - BLOOD BANK ORD ERABLES [facility] [address] [place] [address], [facility] [phone] * (ABNORMAL) BASIC METABOLIC PANEL (CALCIUM TOTAL) (05/15/2022 1:52 PM TECHNICIAN TERMINAL AND REPEATER) BUN 20 7 - 26 mg/dL 05/15/2022 2:49 PM [facility] Creatinine 1.53(H) 0.56 - 0.96 mg/dL 05/15/2022 2:49 PM [facility] Sodium 137 136 - 145 mmol/L 05/15/2022 2:49 PM [facility] Potassium 4.6(H) 3.5 - 4.5 mmol/L 05/15/2022 2:49 PM [facility] Chloride 103 98 - 107 mmol/L 05/15/2022 2:49 PM [facility] CO2 25 22 - 29 mmol/L 05/15/2022 2:49 PM [facility] Glucose 107 70 - 115 mg/dL 05/15/2022 2:49 PM [facility] Calcium 9.4 8.4 - 10.2 mg/dL 05/15/2022 2:49 PM [facility] Anion Gap 14 8 - 18 05/15/2022 2:49 PM [facility] BUN/Creatinine Ratio 13 7 - 23 05/15/2022 2:49 PM [facility] Osmolality Calculated 287 270 - 300 mOsm/kg 05/15/2022 2:49 PM [facility] eGFR by CKD-EPI 36(L) >=90 mL/min/1.7 3 m2 05/15/2022 2:49 PM [facility] Blood BLOOD SPECIMEN / Unknown Lab Venipuncture / Unknown 05/15/2022 1:52 PM TECHNICIAN TERMINAL AND REPEATER 05/15/2022 2:20 PM TECHNICIAN TERMINAL AND REPEATER Provider Unknown LAB - CHEMISTRY [facility] [address] [place] [address], [facility] [phone] * (ABNORMAL) CBC W/O DIFFERENTIAL (05/15/2022 1:52 PM TECHNICIAN TERMINAL AND REPEATER) WBC 6.6 3.5 - 10.5 10? 3 /uL 05/15/2022 2:29 PM [facility] RBC 3.34(L) 3.80 - 5.20 10? 6 /uL 05/15/2022 2:29 PM [facility] Hemoglobin 9.9(L) 12.0 - 15.6 g/dL 05/15/2022 2:29 PM [facility] Hematocrit 30.4(L) 35.0 - 45.0 % 05/15/2022 2:29 PM [facility] MCV 91.0 80.7 - 98.3 fL 05/15/2022 2:29 PM [facility] MCH 29.6 26.7 - 34.0 pg 05/15/2022 2:29 PM [facility] MCHC 32.6 30.8 - 35.9 g/dL 05/15/2022 2:29 PM [facility] RDW-SD 43.3 36.0 - 50.0 fL 05/15/2022 2:29 PM [facility] RDW-CV 13.0 11.2 - 14.8 % 05/15/2022 2:29 PM [facility] Platelet Count 329 150 - 400 10? 3 /uL 05/15/2022 2:29 PM [facility] MPV 9.8 9.4 - 12.9 fL 05/15/2022 2:29 PM [facility] nRBC Absolute 0.00 0 10? 3 /uL 05/15/2022 2:29 PM [facility] nRBC Auto 0.0 0 /100 WBC 05/15/2022 2:29 PM [facility] Blood BLOOD SPECIMEN / Unknown Lab Venipuncture / Unknown 05/15/2022 1:52 PM TECHNICIAN TERMINAL AND REPEATER 05/15/2022 2:20 PM TECHNICIAN TERMINAL AND REPEATER Provider Unknown LAB - HEMATOLOGY ORD ERABLES [facility] [address] [place] [address], [facility] [phone] documented in this encounter Visit Diagnoses Diagnosis Preop examination- Primary Preoperative examination, unspecified documented in this encounter Care Teams Field Administrative Assistant Relationship Specialty Start Date End Date Karrie Phillips MD [address] [place] [phone] PCP - General 03/13/22 documented as of this encounter
--- OUTSIDE RECORDS SUMMARY | 2024-04-11 03:32 | XMS_ITS | Encounter Summary ---
Author Organization [facility] Address [address] [place] [address] Care Team Providers Care Natural Resource Manager Name Role Phone Karrie Phillips MD Primary Care Provider [phone] Encounter Details Date Type Department Care Team (Late st Contact Info) Description 02/15/2022 Ophth Exam [facility] [address] [place] [phone] Makenzie Sin DO [address] [place] [phone] Social History Tobacco Use Types Packs/Day Years Used Date Smoking Tobacco: Never Alcohol Use Standard Drinks/Week Comments [...] on file documented as of this encounter Plan of Treatment Upcoming Encounters Date Type Department Care Team (Late st Contact Info) Description 06/02/2024 1:45 PM INDOOR LANDSCAPER/GARDENER Office Visit [facility] - [facility] [address] [facility], [place] [address] Deon Taylor MD [facility] [place] [address] documented as of this encounter Visit Diagnoses Not on filedocumented in this encounter Additional Health Concerns Infection Onset Date Last Indicated Resolved Time COVID-19 Under Investigation 02/15/2022 02/15/2022 02/15/2022 3:59 PM INDOOR LANDSCAPER/GARDENER documented as of this encounter Care Teams Natural Resource Manager Relationship Specialty Start Date End Date Karrie Phillips MD [address] [place] [address] PCP - General 03/13/22 documented as of this encounter
--- OUTSIDE RECORDS SUMMARY | 2024-04-11 03:32 | XMS_ITS | Encounter Summary ---
Author Organization [facility] Address [address] [facility] [place] [address] Care Team Providers Care Wardrobe Consultant Name Role Phone Karrie Phillips MD Primary Care Provider [phone] Encounter Details Date Type Department Care Team (Late st Contact Info) Description 02/16/2022 Ophth Exam [facility] [address] [place] [address] Pi, Renee Brink MD [address] [place] [phone] Social History Tobacco Use Types Packs/Day Years [...] st Contact Info) Description 06/02/2024 1:45 PM WET WASHER MACHINE Office Visit [facility] - Orthopedics [address] [place] [address], [facility] [place] [address] Deon Taylor MD [address] [place] [address] documented as of this encounter Visit Diagnoses Not on filedocumented in this encounter Care Teams Wardrobe Consultant Relationship Specialty Start Date End Date Karrie Phillips MD [address] [place] [address] PCP - General 03/13/22 documented as of this encounter
--- OUTSIDE RECORDS SUMMARY | 2024-04-11 03:32 | XMS_ITS | Encounter Summary ---
Author Organization [facility] Address [address] [place] [address] Care Team Providers Care It Security Specialist Name Role Phone Karrie Phillips MD Primary Care Provider [phone] Encounter Details Date Type Department Care Team (Late st Contact Info) Description 03/21/2022 Orders Only [facility] [address] [facility], [place] [address] Anabell Avendaño, SANTI Cervical myelopathy (HCC) Social History Tobacco Use [...] st Contact Info) Description 06/02/2024 1:45 PM DIET THERAPIST Office Visit [facility] [address] [place] [address], [place] [address] Deon Taylor MD [address] [place] [address] documented as of this encounter Visit Diagnoses Diagnosis Cervical myelopathy (HCC)- Primary Cervical spondylosis with myelopathy documented in this encounter Care Teams It Security Specialist Relationship Specialty Start Date End Date Karrie Phillips MD [address] [place] [address] PCP - General 03/13/22 documented as of this encounter
--- OUTSIDE RECORDS SUMMARY | 2024-04-11 03:32 | XMS_ITS | Encounter Summary ---
Author Organization [facility] Address [address] [place] [address] Care Team Providers Care Can Sorter Name Role Phone Karrie Phillips MD Primary Care Provider [phone] Reason for Visit * Reason Comments Preop Exam Encounter Details Date Type Department Care Team (Late st Contact Info) Description 05/15/2022 2:30 PM SNOW BLOWER Office Visit [facility] - Orthopedics [address] [place] [address], [place] [address] Deon Taylor MD [address] [place] [address] [phone] Cervical myelopathy (HCC) (Primary Dx) Social History Tobacco Use Types [...] - Inhaled Oxygen Concentration - - Weight 61.6 kg (135 lb 12.8 oz) 05/15/2022 1:57 PM SNOW BLOWER Height 154.9 cm (5' 1 ) 05/15/2022 1:57 PM SNOW BLOWER Body Mass Index 25.66 05/15/2022 1:57 PM SNOW BLOWER documented in this encounter Functional Status Functional [...] Progress Notes * Deon Taylor MD - 05/15/2022 11:52 PM CST I have seen and evaluated the patient and agree with the resident's assessment and plan as stated above. I have independently reviewed all imaging studies. Please reach out to my clinical nurse, Anabell Avendaño RN with any questions or concerns. 70-year-old female with signs and symptoms of myelopathy including difficulty with balance and lossof hand manual dexterity. MRI and CT scans of her neck demonstrate history of previous C5-6 ACDF with pseudoarthrosis and continued osteophyte formation with stenosis at this level. She does have multiple levels of autofusion essentially from C3-C5 and has significant spondylosis below this. We have been discussing potential surgical intervention due to her worsening myelopathic symptoms. Given her overall alignment I initially discussed potentially a smaller surgery though at this point I am recommending a decompression from C5-6 for treatment of myelopathy with fusion from C4-T2 to prevent distal junctional kyphosis. Today I discussed the surgery in detail as well as the recovery period. We discussed the risks and benefits of the planned procedure including but not limited to bleeding with possible need for transfusion, infection, damage to surrounding structures including neural eleme nts and nearby vascular structures, CSF leak, radiculitis, nerve palsy, malunion, nonunion, need for further surgery, blood clots, PE, stroke, NE, paralysis, . After we reviewed of the risks andbenefits the patient wished to proceed with the surgery as planned. PROMIS Pain Interference 05/08/2022 03/13/2022 PROMIS PI Score 74 (severe) 67 (moderate) PROMIS Physical Function 05/08/2022 03/13/2022 PROMIS PF Score 24 (severe dysfunction) 25 (severe dysfunction) This note was transcribed using ishBowl dictation software and may include inaccuracies in missileman which were unrecognized and not corrected. Deon Taylor MD BLOWER * Aleyda Rebollar MD - 05/15/2022 2:08 PM CST [facility] Orthopedic Spine Surgery Clinic Note Kandace Cole, 72 year old, female : 1950 CSN: [id number] Primary Care Physician: Karrie Phillips MD, MD Diagnosis/Procedures 1.) cervical stenosis with cervical myelopathy HPI Date of this clinic visit: 05/15/2022 This is a 72 year old female with history of diagnosis above who is here for a follow-up clinic appointment. Patient reports neck pain that radiates down both arms, L > R. She has bilateral hand pain, numbness and tingling. She reports dropping objects frequently and has noticed her handwriting has gotten sloppier. Ambulates with her grandson for assistance. She has received lumbar BALBIR previous ly. Denies new numbness/paresthesias or bowel/bladder retention or incontinence. ROS otherwise negative. - PMH includes: fibromyalgia, HTN, HLD, CKD, DM - PSH is significant for: reports remote history of surgery for cervical stenosis in 2006 and for her low back in . Objective Ht 1.549 m (5' 1 ) Wt 61.6 kg (135 lb 12.8 oz) PMHx Past Medical History: Diagnosis Date ??? [...] ??? carvedilol (Coreg) 6.25 MG tablet ??? Cholecalciferol (VITAMIN D3 PO) ??? citalopram (CeleXA) 20 MG tablet ??? escitalopram (Lexapro) 20 MG tablet ??? Exenatide ER (Bydureon BCise) 2 MG/0.85ML AUIJ ??? furosemide (Lasix) 20 MG tablet ??? latanoprost (Xalatan) 0.005 % ophthalmic solution ??? lisinopril (Prinivil; Zestril) 20 MG tablet ??? meclizine (Antivert) 25 MG tablet ??? Multiple Vitamins-Minerals (PreserVision AREDS 2) capsule ??? pantoprazole EC (Protonix) 40 MG tablet ??? pravastatin (Pravachol) 40 MG tablet ??? QUEtiapine (SEROquel) 200 MG tablet ??? saline nasal spray ([place]; Baby [place]) 0.65 % nasal spray No current facility-administered medications for this visit. Review of Systems - Bowel/Bladder incontinence or retention: Denies - Numbness/paresthesias to extremities: Reports - Hand clumsiness/loss of fine motor skills: Reports - Balance problems: Reports Review of all other systems was negative. Physical Exam General appearance: awake, cooperative, NAD Neck: -Tenderness to palpation: absent -ROM: Diminished range of motion Posture - Erect posture with no cervical thrust, list, or torticollis noted Prior exam: Bilateral Upper Extremity: - Motor: Shoulder Abduction (C5) 5/5 Elbow Extension (C7) 5/5 on L, 4/5 on R Elbow Flexion (C5-palm up; C6 - thumb up) 5/5 Wrist Extension (C6) 5/5 Wrist Flexion (C7) 5/5 Finger Flexion (C8) 5/5 Finger Abduction (T1) 5/5 - Sensory: Intact to light touch in C5-T1 distribution except for diminished sensation over bilateral hands - Garcia's sign is negative Bilateral Lower Extremity: - Motor: Hip Flexion (L2/3) 5/5 Knee Flexion 5/5 Knee Extension (L4) 5/5 Ankle Dorsiflexion (L5) 5/5 on R, 4/5 on L Great Toe Extension (L5) 5/5 on R, 4/5 on L Ankle Plantarflexion (S1) 5/5 - Sensation: Intact to light touch distally - Straight Leg Raise: negative bilaterally - Clonus: absent Gait - Walks with short shuffling steps Imaging No new imaging - Prior cervical spine MRI and CT from 01/2022 reviewed. Demonstrate loss of cervical lordosis withauto-fusion of C3/4, C4/5, C6/7 and C7/T1 with a peak cage and nonunion at C5/6. 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 After we reviewed of the risks a nd benefits the patient wished to proceed with the surgery as planned. - Will plan to proceed with C3-T2 PISF with C5-6 laminectomies - Follow up for surgery Aleyda Rebollar MD 05/15/2022 BLOWER documented in this encounter Plan of Treatment Upcoming Encounters Date Type Department Care Team (Late st Contact Info) Description 06/02/2024 1:45 PM SNOW BLOWER Office Visit [facility] - Orthopedics [address] [place] [address], [place] [address] Deon Taylor MD [address] [place] [phone] documented as of this encounter Visit Diagnoses Diagnosis Cervical myelopathy (HCC)- Primary Cervical spondylosis with myelopathy documented in this encounter Care Teams Can Sorter Relationship Specialty Start Date End Date Karrie Phillips MD [address] [place] [id number] PCP - General 03/13/22 documented as of this encounter
--- OUTSIDE RECORDS SUMMARY | 2024-04-11 03:32 | XMS_ITS | Encounter Summary ---
Author Organization [facility] Address [address] [facility] [place] [address] Care Team Providers Care Special Crimes Investigator Name Role Phone Karrie Phillips MD Primary Care Provider [phone] Encounter Details Date Type Department Care Team (Latest Contact Info) Description 05/15/2022 1:27 PM CHAMFERING MACHINE OPERATOR - 05/15/2022 11:59 PM [facility] Hospital Encounter [facility] OP DRAW STATION [address] [place] [phone] Unknown, Provider Discharge Disposition: Home or Self Care Social [...] mouth every evening 06/08/2022 saline nasal spray (Lea; Baby [place]) 0.65 % nasal spray Wakeman 1 (one) spray into each nostril as [...] st Contact Info) Description 06/02/2024 1:45 PM CHAMFERING MACHINE OPERATOR Office Visit [facility] - Orthopedics [address] [place] [address], [facility] [place] [place] [address] Deon Taylor MD [address] [place] [phone] documented as of this encounter Procedures Procedure Name Priority Date/Time Associated Diagnosis Comments TYPE + SCREEN PANEL Routine 05/15/2022 1 :52 PM CHAMFERING MACHINE OPERATOR Preop examination CBC W/O DIFFERENTIAL Routine 05/15/2022 1:52 PM CHAMFERING MACHINE OPERATOR Preop examination BASIC METABOLIC PANEL (CALCIUM TOTAL) Routine 05/15/2022 1:52 PM CHAMFERING MACHINE OPERATOR Preop examination documented in this encounter Results * TYPE + SCREEN PANEL (05/15/2022 1:52 PM CHAMFERING MACHINE OPERATOR) [facility] Antibody Screen NEG 3:13 PM CHAMFERING MACHINE OPERATOR [facility] ABO Rh A POS 05/15/2022 3:13 PM CHAMFERING MACHINE OPERATOR [facility] Blood Bank BLOOD SPECIMEN / Unknown Lab Venipuncture / Unknown 05/15/2022 1:52 PM CHAMFERING MACHINE OPERATOR 05/15/2022 2:23 PM CHAMFERING MACHINE OPERATOR Provider Unknown LAB - BLOOD BANK ORD ERABLES [facility] [address] [place] [address], [facility] [phone] * (ABNORMAL) BASIC METABOLIC PANEL (CALCIUM TOTAL) (05/15/2022 1:52 PM CHAMFERING MACHINE OPERATOR) [facility] BUN 20 7 - 26 mg/dL 05/15/2022 2:49 PM [facility] Creatinine 1.53(H) 0.56 - 0.96 mg/dL 05/15/2022 2:49 PM [facility] Sodium 137 136 - 145 mmol/L 05/15/2022 2:49 PM [facility] Potassium 4.6(H) 3.5 - 4.5 mmol/L 05/15/2022 2:49 PM [facility] Chloride 103 98 - 107 mmol/L 05/15/2022 2:49 PM [facility] CO2 25 22 - 29 mmol/L 05/15/2022 2:49 PM [facility] Glucose 107 70 - 115 mg/dL 05/15/2022 2:49 PM [facility] Calcium 9.4 8.4 - 10.2 mg/dL 05/15/2022 2:49 PM [facility] Anion Gap 14 8 - 18 05/15/2022 2:49 PM [facility] BUN/Creatinine Ratio 13 7 - 23 05/15/2022 2:49 PM [facility] Osmolality Calculated 287 270 - 300 mOsm/kg 05/15/2022 2:49 PM [facility] eGFR by CKD-EPI 36(L) >=90 mL/min/1.7 3 m2 05/15/2022 2:49 PM [facility] Blood BLOOD SPECIMEN / Unknown Lab Venipuncture / Unknown 05/15/2022 1:52 PM CHAMFERING MACHINE OPERATOR 05/15/2022 2:20 PM CHAMFERING MACHINE OPERATOR Provider Unknown LAB - CHEMISTRY CHELO QUIGLEY [facility] [address] [place] [address], [facility] [phone] * (ABNORMAL) CBC W/O DIFFERENTIAL (05/15/2022 1:52 PM [facility]) WBC 6.6 3.5 - 10.5 10? 3 /uL 05/15/2022 2:29 PM [facility] RBC 3.34(L) 3.80 - 5.20 10? 6 /uL 05/15/2022 2:29 PM [facility] Hemoglobin 9.9(L) 12.0 - 15.6 g/dL 05/15/2022 2:29 PM [facility] Hematocrit 30.4(L) 35.0 - 45.0 % 05/15/2022 2:29 PM [facility] MCV 91.0 80.7 - 98.3 fL 05/15/2022 2:29 PM [facility] MCH 29.6 26.7 - 34.0 pg 05/15/2022 2:29 PM [facility] MCHC 32.6 30.8 - 35.9 g/dL 05/15/2022 2:29 PM [facility] RDW-SD 43.3 36.0 - 50.0 fL 05/15/2022 2:29 PM [facility] RDW-CV 13.0 11.2 - 14.8 % 05/15/2022 2:29 PM [facility] Platelet Count 329 150 - 400 10? 3 /uL 05/15/2022 2:29 PM [facility] MPV 9.8 9.4 - 12.9 fL 05/15/2022 2:29 PM CHAMFERING MACHINE OPERATOR [facility] nRBC Absolute 0.00 0 10? 3 /uL 05/15/2022 2:29 PM CHAMFERING MACHINE OPERATOR [facility] nRBC Auto 0.0 0 /100 WBC 05/15/2022 2:29 PM CHAMFERING MACHINE OPERATOR [facility] Blood BLOOD SPECIMEN / Unknown Lab Venipuncture / Unknown 05/15/2022 1:52 PM CHAMFERING MACHINE OPERATOR 05/15/2022 2:20 PM CHAMFERING MACHINE OPERATOR Provider Unknown LAB - HEMATOLOGY ORD ERABLES [facility] [address] [place] [address] [phone] documented in this encounter Visit Diagnoses Diagnosis Preop examination Preoperative examination, unspecified documented in this encounter Care Teams Special Crimes Investigator Relationship Specialty Start Date End Date Krarie Phillips MD [address] [place] [id number] PCP - General 03/13/22 documented as of this encounter
--- OUTSIDE RECORDS SUMMARY | 2024-04-11 03:32 | XMS_ITS | Encounter Summary ---
Author Organization [facility] Address [address] [place] [address] Care Team Providers Care Hand Glass Cutter Name Role Phone Unavailable Primary Care Provider Unavailabl e Reason for Visit * Reason Onset Date Comments Consultation 02/14/2022 Encounter Details Date Type Department Care Team (Late st Contact Info) Description 02/14/2022 Telephone [facility] [address] [place] [address] Deon Perez MD [address] [facility] [place] [address] Consultation Social History Tobacco Use Types Packs/Day Years [...] on file documented as of this encounter Miscellaneous Notes * Telephone Encounter - Deon Perez MD - 02/14/2022 11:53 PM CST ENT Telephone Note Spoke to [facility] center around 7:06PM regarding patient Kandace Cole who sustained facial trauma after a fall and presented to [facility] ED. Discussed with provider at OSH patient was found on CT to have non displaced R ZMC fracture as wellfracture of medial orbital wall. Appered to have full EOM and no discomfort with mouth opening. Also with eyebrow laceration that ED was planning to repair primarily Images not available for personal review Recommendations: - From ENT standpoint, no acute ENT intervention necessitating transfer however would recommend ophthalmology consultation regarding orbital fractures as well - Provided patient and provider with clinic follow up information for follow up in 1 week for eval and consideration of surgery Deon Perez MD Otolaryngology - Head and Neck Surgery 02/14/2022 AGE STOKER documented in this encounter Plan of Treatment Upcoming Encounters Date Type Department Care Team (Late st Contact Info) Description 06/02/2024 1:45 PM GARBAGE STOKER Office Visit [facility] [address] [place] [address], [place] [address] Deon Taylor MD [address] [place] [phone] documented as of this encounter Visit Diagnoses Not on filedocumented in this encounter
--- OUTSIDE RECORDS SUMMARY | 2024-04-11 03:32 | XMS_ITS | Encounter Summary ---
Author Organization [facility] Address [address] [place] [address] Care Team Providers Care Toy Assembly Supervisor Name Role Phone Unavailable Primary Care Provider Unavailabl e Reason for Visit * Reason Onset Date Comments ED Referral 02/14/2022 Encounter Details Date Type Department Care Team (Late st Contact Info) Description 02/14/2022 Telephone [facility] [address] [place] [phone] Makenzie Sin DO [address] [place] [phone] ED Referral Social History Tobacco Use Types Packs/Day Years Used Date Smoking Tobacco: Never Alcohol Use Standard Drinks/Week Comments No 0 (1 standard drink = 0.6 oz pur e alcohol) Sex and Gender Information Value Date Recorded Sex Assigned at Not on file Gender Identity Not on file Sexual Orientation Not on file documented as of this encounter Miscellaneous Notes * Telephone Encounter - Makenzie Sin DO - 02/14/2022 7:54 PM CST Transfer Center Call Summary Called by transfer center regarding Kandace Cole, a 72 year old female currently in the [facility] ED. Per [facility] care team, the patient sustained a ground level fall earlier today and hit herface on the curb. She sustained fractures involving the right zygomaticomaxillary complex, right zygomatic arch, anterior & lateral pérez of the right maxillary sinus, and right medial orbital wall. Outside ED physician has spoken with face/ENT who will coordinate outpatient follow up. Patient denies vision changes, pain with extraocular movements, diplopia, or N/V. History of cataract surgery. VA 20/70 OD, 20/50 OS (wears glasses, but they were partially broken during her fall today). PERRL.Motility full. Plan: Discussed that due to decreased VA and inability to verify whether or not this is her baseline, would recommend ophthalmologic assessment. ED physician discussed with patient who was amenable to transfer to [facility] for evaluation. Requested that her images be sent on a disc due to inability to access them in [employer] or [employer]. Makenzie Sin DO Ophthalmology Resident 02/14/2022 7:54 PM AND CAP OPENER documented in this encounter Plan of Treatment Upcoming Encounters Date Type Department Care Team (Late st Contact Info) Description 06/02/2024 1:45 PM HAT AND CAP OPENER Office Visit [facility] - Orthopedics [address] [place] [address], [place] [address] Deon Taylor MD [address] [place] [phone] documented as of this encounter Visit Diagnoses Not on filedocumented in this encounter
--- OUTSIDE RECORDS SUMMARY | 2024-04-11 03:32 | XMS_ITS | Encounter Summary ---
Author Organization [facility] Address [address] [facility] [place] [address] Care Team Providers Care Block Tester Name Role Phone Unavailable Primary Care Provider Unavailabl e Reason for Visit * Reason Comments Transitional Care Encounter Details Date Type Department Care Team (Late st Contact Info) Description 02/21/2022 Transitional Care Transitional Care at [address] [address] Madhavi Vega, associate director regulatory affairs Social History Tobacco Use Types Packs/Day Years [...] encounter Miscellaneous Notes * Telephone Encounter - Madhavi Vega RN - 02/21/2022 10:12 AM CST RN 48 hour post discharge follow-up contact by telephone: Patient with recent IP discharge from [facility] on 02/19/22. RN attempted to reach Kandace Cole today by telephone ([phone]) to complete 48 hour post discharge follow-up contact. RN was unable to reach Kandace at this time and this RN left voice message, encouraging patient to call this underwriter back when available to provide update since last follow-up contact. RN will await call back from and will continue to follow Patient for [facility] clinic appointment. ?? Call Duration: 1 min Madhavi Vega RN, BSN Physician Practice Consultant, [facility] Office: [phone] 02/21/2022 OGRAPH MACHINE OPERATOR documented in this encounter Plan of Treatment Upcoming Encounters Date Type Department Care Team (Late st Contact Info) Description 06/02/2024 1:45 PM PANTOGRAPH MACHINE OPERATOR Office Visit [facility], [facility] [place] [address] Deon Taylor MD [address] [place] [phone] documented as of this encounter Visit Diagnoses Not on filedocumented in this encounter
--- OUTSIDE RECORDS SUMMARY | 2024-04-11 03:32 | XMS_ITS | Encounter Summary ---
Author Organization [facility] Address [address] [place] [address] Care Team Providers Care Con[employer] Fin[employer] Supervisor Name Role Phone Karrie Phillips MD Primary Care Provider [phone] Encounter Details Date Type Department Care Team (Latest Contact Info) Description 03/13/2022 12:49 PM TEA ROOM MANAGER - 03/13/2022 11:59 PM [facility] Hospital Encounter [facility] DI[facility]STIC RAD [facility] [address] [facility] [id number] Deon Taylor MD [address] [place] [address] Discharge Disposition: Home or Self Care Social [...] the money to buy more. Never true 11/18/20 22 Within the past 12 months, t [...] (one) tablet by mouth 2 times daily latanoprost (Xalatan) 0.005 % ophthalmic solution 03/07/2022 [...] TABLET BY MOUTH DAILY saline nasal spray (Crisp; Baby Whiteface) 0.65 % nasal spray [place] 1 (one) spray into each nostril as needed for Dry Nose 15 mL 02/19/2022 calcitriol (Rocaltrol) 0.25 MCG capsule Take 1 (one) capsule by mouth every Saturday, Saturday & Saturday02/19/2022 06/08/2022 citalopram (CeleXA) 20 MG tablet Take 1 (one) tablet by mouth once daily 02/20/2022 06/08/2022 escitalopram (Lexapro) 20 MG tablet Take 1 (one) tablet by mouth once daily 02/20/2022 06/23/2022 Exenatide ER (Bydureon BCise) 2 MG/0.85ML AUIJ Bydureon BCise 2 mg/0.85 mL subcutaneous auto-injector INJECT 2 MG SUBCUTANEOUS EVERY WEEK 06/09/19 furosemide (Lasix) 20 MG tablet Take 0.5 (one-half) tablet by mouth once daily 02/20/2022 06/08/2022 loratadine (Claritin) 10 MG tablet Take 1 (one) tablet by mouth once daily 02/20/2022 05/15/2022 OMEPRAZOLE PO 05/15/2022 oxyCODONE, immediate release, (Roxicodone) 5 MG tablet Take 1 (one) tablet by mouth every 6 hours as needed 12 tablet 02/19/2022 05/15/2022 QUEtiapine (SEROquel) 200 MG tablet Take 1 (one) tablet by mouth once daily 02/20/2022 06/08/2022 documented as of this encounter Plan of Treatment Upcoming Encounters Date Type Department Care Team (Late st Contact Info) Description 06/02/2024 1:45 PM TEA ROOM MANAGER Office Visit [facility] - Orthopedics [address] [place] [address], [facility] [place] [address] Deon Taylor MD [address] [place] [id number] documented as of this encounter Procedures Procedure Name Priority Date/Time Associated Diagnosis Comments XR CERVICAL SPINE 2 OR 3VW Routine 03/13/2022 1:02 PM TEA ROOM MANAGER Neck pain documented in this encounter Results * XR CERVICAL SPINE 2 OR 3VW (03/13/2022 1:02 PM TEA ROOM MANAGER) Anatomical Region Laterality Modality Spine Radiographic Vivian ging 03/13/2022 1:13 PM TEA ROOM MANAGER Impressions 03/13/2022 1:20 PM TEA ROOM MANAGER IMPRESSION: There is straightening of the cervical spine. Vertebral body heights are normal. There is fusion of C2-C5 with extensive sclerotic and cystic changes. There is severe C6-C7 and C7-T1 degenerative disc disease. There is kyphosis of the cervicothoracic junction. There is a large anterior osteophyte at C5-C6. There is multilevel uncovertebral joint and facet arthropathy. No prevertebral soft tissue swelling. > Interpreting Provider: Alejo Ahuja MD on 03/13/2022 1:20 PM Narrative 03/13/2022 1:20 PM TEA ROOM MANAGER PROCEDURE: ??XR CERVICAL SPINE 2 OR 3VW, DATE/TIME OF EXAM: ??03/13/2022 1:03 PM, LOCATION ??[facility] INDICATION: M54.2: Neck pain ADDITIONAL CLINICAL INFORMATION: Ordering Provider Reason For Exam: ??neck pain COMPARISON: CT dated 02/15/2022. Procedure Note Alejo Ahuja MD - 03/13/2022 PROCEDURE: XR CERVICAL SPINE 2 OR 3VW, DATE/TIME OF EXAM: 21:03 PM, LOCATION [facility] INDICATION: M54.2: Neck pain ADDITIONAL CLINICAL INFORMATION: Ordering Provider Reason For Exam: neck pain COMPARISON: CT dated 02/15/2022. IMPRESSION: There is straightening of the cervical spine. Vertebral body heights are normal. There is fusion of C2-C5 with extensive sclerotic and cystic changes. There is severe C6-C7 and C7-T1 degenerative disc disease.There is kyphosis of the cervicothoracic junction. There is a large anterior osteophyte at C5-C6. There is multilevel uncovertebral joint and facet arthropathy. No prevertebral soft tissue swelling. > Interpreting Provider: Alejo Ahuja MD on 03/13/2022 1:20 PM Deon Taylor MD DIAGNOSTIC IMAGING [facility] documented in this encounter Visit Diagnoses Diagnosis Neck pain Cervicalgia documented in this encounter Care Teams [employer] Supervisor Relationship Specialty Start Date End Date Karrie Phillips MD [address] [place] [address] PCP - General 03/13/22 documented as of this encounter
--- OUTSIDE RECORDS SUMMARY | 2024-04-11 03:32 | XMS_ITS | Encounter Summary ---
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48 12/09/2009 11:28 AM CDT documented in this encounter Progress Notes * Lynn Romero - 05/01/2010 11:00 AM CSTAddended by: LYNN ROMERO on: 05/01/2010 Modules accepted: Level of Service E CHARGE RN * Lynn Romero - 05/01/2010 10:59 AM CST Comment: Corrected CPT 94215 not allowed with MCR E CHARGE RN * Dionisio Ryan MD - 12/07/2009 1:43 PM CDT Subjective: Patient ID: Kandace Cole is an 59 y.o. female. Chief Complaint: Patient comes in with complaints of neck pain with headaches, dizziness and swelling behind right ear down into her neck. She comes in with an MRI. No family history on file. Current outpatient prescriptions Medication Sig Dispense Refill ??? METFORMIN HCL PO ??? Citalopram Hydrobromide (CELEXA PO) ??? LOSARTAN POTASSIUM PO ??? albuterol (5 MG/ML) 0.5% 48 mg in nacl 0.9 % ??? Amitriptyline HCl (ELAVIL PO) ??? OMEPRAZOLE PO ??? diclofenac sodium (VOLTAREN) 50 MG tablet Take 1 Tab by mouth 2 times daily. 60 Tab 4 ??? diazepam (VALIUM) 2 MG tablet Take 1 Tab by mouth. TID 90 Tab 2 Allergies Allergen Reactions ??? Naproxen ??? Urecholine (Bethanechol Chloride) ??? Egg White ??? Latex ??? Other demeral ??? Sulfamethoxazole W-trimethoprim ??? Fluoxetine ??? Cyclobenzaprine Past Medical History Diagnosis Date ??? Osteoarthritis ??? Diabetes ??? HTN (HYPERTENSION) ??? Fibromyalgia ??? Ulnar Neuropathy ??? Glaucoma ??? Macular Degeneration ??? Disease of Esophagus ??? ANEMIA ??? Raynaud Disease Past Surgical History Procedure Date ??? Carpal tunnel release ??? Rotator cuff repair ??? Hysterectomy ??? Cervical laminectomy ??? Nasal polypectomy ??? Ulnar nerve transposition Review of Systems All other systems reviewed and are negative. Objective: Physical Exam Neurological: Decreased ROM neck DTR ok Ms testing she gives way with pain Assessment: MRI shows severe DDD C3-4;4-5;5-6 with stenosis. Good fusion at C4-5 which was done in 2006. 1. Degeneration of Cervical Intervertebral Disc (722.4) Plan: Voltaren 50 mg BID and Diazepam 2 mg TID. She may require surgery in future. She is to call in one month with an update. documented in this encounter Plan of Treatment Upcoming Encounters Date Type Department Care Team (Late st Contact Info) Description 06/02/2024 1:45 PM NURSE CHARGE RN Office Visit [facility] - Orthopedics [address] [place] [address], [place] [address] Deon Taylor MD [address] [place] [id number] documented as of this encounter Visit Diagnoses Diagnosis Degeneration of cervical intervertebral disc- Primary documented in this encounter
--- OUTSIDE RECORDS SUMMARY | 2024-04-11 03:32 | XMS_ITS | Encounter Summary ---
Author Organization [facility] Address [address] [place] [address] Care Team Providers Care Vegetable Grower Name Role Phone Unavailable Primary Care Provider Unavailabl e Reason for Visit * Reason Comments Fall BIBEMS transfer from [place], fall today with zygomatic fracture, -loc, -thinners. Denies vision changes Facial Fracture * Auth/Cert (Routine) Specialty Diagnoses / Procedures Referred By Contac t Referred To Contact Referral ID Status Reason Start Date Expiration Date Visits Re quested Visits Authorized [id number] 1 1 Encounter Details Date Type Department Care Team (Late st Contact Info) Description 02/14/2022 10:07 PM MANAGER URGENT CARE - 02/19/2022 2:23 PM [facility] Hospital Encounter SL [address] ACUTE [address] [place] [id number] Justo Sparrow MD [address] [facility] [place] [id number] Abeba Will, [address] [place] [address] Marii Light MD [address] [facility] [address] [place] [address] Internal Medicine Discharge Disposition: Home or Self Care Social History Tobacco Use Types Packs/Day Years Used Date Smoking Tobacco: Never Passive Smoke Exposure: Never Smokeless Tobacco: Never Tobacco Cessation:Counseling Given: No Alcohol Use Standard Drinks/Week Comments No 0 [...] money to buy more. Never true 02/17/20 Within the past 12 months, t he [...] Sign Reading Time Taken Comments Blood Pressure 117/58 02/19/2022 11:27 AM MANAGER URGENT CARE Pulse 88 02/19/2022 11:27 AM MANAGER URGENT CARE Temperature 36.6 ??C (97.9 ??F) 02/19/2022 11:[address] Respiratory Rate 16 02/19/2022 11:27 AM MANAGER URGENT CARE Oxygen Saturation 98% 02/19/2022 11:27 AM MANAGER [facility]RGENT CARE Inhaled Oxygen Concentration - - Weight 70.3 kg (155 lb) 02/14/2022 10:27 PM MANAGER URGENT CARE Height 165.1 cm (5' 5 ) 02/14/2022 10:27 PM MANAGER URGENT CARE Body Mass Index 25.79 02/14/2022 10:27 PM MANAGER URGENT CARE documented in this encounter Functional Status Functional [...] No 02/16/2022 documented as of this encounter Discharge Summaries * Meet Flores PA-C - 02/19/2022 10:42 AM CST Images from the original note were not included. Hospital Discharge Summary Patient ID: Kandace Cole [id number] 72 year old 1950 Admit date: 02/14/2022 Discharge date: 02/19/2022 Admitting Physician: Marii Light MD Discharge Physician: Abeba Will DO Present on admission: Fibromyalgia Hypertension Hyperlipidemia CKD stage 4 T2DM Depression Facial bone fracture Discharge Diagnoses: Fibromyalgia Hypertension Hyperlipidemia CKD stage 4 T2DM Depression Facial bone fracture Hyponatremia Admission Condition: poor Discharged Condition: good Indication for Admission: Facial bone fractures Hospital Course: Kandace Cole is a 72 year old female with past medical history of fibromyalgia, hypertension, hyperlipidemia, CKD stage 4, T2DM and depression presented on 02/14 from OSH for further evaluation of facial bone fractures s/p fall. Patient states she felt lightheaded when walking and fell, + LOC and hit her head. She has had frequent falls over the last few months due to feeling dizzy, worse when she turns her head. She lives at home with son who helps her with ADLs, ambulates without assistive device. She also has severe spinal stenosis and was supposed to follow up outpatient with NSGY regarding this. At the OSH, patient was found to have a laceration over R eye and required sutures. Imaging revealed fractures involving the R zygomaticomaxillary complex, R zygomatic arch, anterior and lateral pérez of R maxillary sinus, and R medial orbital wall. She was transferred to U for ophtho and ENT evaluation. At [facility], ENT was consulted, no acute intervention. They recommend bacitracin to wound x 5 days thenswitch to vaseline. She will need to follow up with Dr. Villafuerte (scheduled for 02/27) and will need sutures removed. Ophthalmology was consulted, no acute intervention. She will need Augmentin x 7 days and follow up is scheduled for 03/01. She should refrain from nose blowing x 2 weeks. She had positive orthostatic BP. TTE without evidence of R to L shunt. TSH wnl. Carotid duplex withhomogenous, smooth, atherosclerotic plaque in R common carotid artery, < 50% stenosis, antegradeblood flow. Ortho spine was consulted for cervical stenosis, no acute intervention, will need to follow up withDr. Taylor in 2 weeks with XR cervical spine. AAT. Hospital course was c/b hyponatremia to 126. It improved with salt tabs. TSH wnl, urine Na 55. AM cortisol and ACTH stim test was attempted but not performed correctly by nursing. She will need to follow with bridge clinic with repeat BMP in 3 days, and also follow with nephrology outpatient. PT/OT recommended SNF placement but patient was refused, CM assisted with setting up home health for her. Consults: Orthopedic surgery, ENT, Ophthalmology Discharge Communication: Patient's hospital course was conveyed to PCP. Significant Diagnostic Studies: CBC: Recent Labs Lab Units 02/17/22 0612 02/16/22 0757 02/14/22 2355 WBC 10??3/uL 5.8 5.7 9.5 RBC 10??6/uL 3.18* 3.51* 3.35* HGB g/dL 9.6* 10.5* 9.9* HCT % 28.3* 31.8* 30.1* BMP: Recent Labs Lab Units 02/19/22 0429 02/18/22 1218 02/18/22 0658 NA mmol/L 132* 129* 126* CL mmol/L 104 98 95* CO2 mmol/L 22 21* 23 BUN mg/dL 18 19 19 CREATININE mg/dL 1.58* 1.55* 1.60* CALCIUM mg/dL 9.1 9.5 9.2 Magnesium: No results for input(s): MG in the last 168 hours. Phosphorus: Recent Labs Lab Units 02/16/22 0757 PHOS mg/dL 3.9 Coagulation: No results for input(s): PT, INR, APTT in the last 168 hours. Endocrine: Recent Labs Lab Units 02/16/22 0757 TSH uIU/mL 1.522 LFTs: Recent Labs Lab Units 02/16/22 0757 02/14/22 2355 AST U/L -- 16 ALT U/L -- 13 TBILI mg/dL -- 0.5 ALB g/dL 3.[address] CERVICAL SPINE WO CONTRAST Result Date: 02/16/2022 IMPRESSION: 1.No acute fracture or traumatic malalignment of the cervical spine. 2.Severe multilevel degenerative changes of the cervical spine as described above, which results in moderate spinal canal stenosis at the C5-C6 level and mild spinal canal stenosis at the C3-C4, C6-C7, and C7-T1 levels. 3.Severe bilateral neuroforaminal narrowing at the C5-C6 level. > Interpreting Provider: Barbara Wallace DR on 02/16/2022 2:29 AM MRI CERVICAL SPINE WO CONTRAST Result Date: 02/18/2022 IMPRESSION: 1. Degenerative changes of the spine as described above most prominent at the level of C5-C6 with moderate to severe canal stenosis. There is also small central disc extrusion material projecting inferiorly from the level of C7-T1 and causing mild mass effect on the cord at the level ofT1. Possible T2 hyperintensity/edema or myelomalacia of the cord at this level cannot be excluded. > Interpreting Provider: Brook Billy MD on 02/18/2022 2:03 PM Discharge Exam: Blood pressure 128/58, pulse 78, temperature 97.7 ??F (36.5 ??C), temperature source Oral, resp. rate 17, height 1.651 m (5' 5 ), weight 70.3 kg (155 lb), SpO2 97 %, not currently . General appearance - alert and oriented, well appearing female, and in no acute distress HEENT - laceration over R eyebrow healing well Chest - clear to auscultation, no wheezes, rales or rhonchi, symmetric air entry, breathing comfortably on room air Heart - normal rate, regular rhythm, normal S1, S2, no murmurs, rubs, clicks or gallops Abdomen - soft, nontender, nondistended, no masses or organomegaly Musculoskeletal - no joint tenderness, deformity or swelling Skin - normal coloration and turgor, no rashes, no suspicious skin lesions noted Disposition: Home Patient Instructions: Medication List START taking these medications acetaminophen 325 MG tablet Commonly known as: Tylenol Take 2 (two) tablets by mouth every 6 hours as needed Maximum allowable Acetaminophen amount = 4 Grams (4000 mg) / 24 hours. amoxicillin-clavulanate 875-125 MG tablet Commonly known as: Augmentin Take 1 (one) tablet by mouth 2 times daily for 7 days artificial tears ophthalmic solution Instill 1 (one) drop into both eyes every 4 hours as needed buPROPion XL 24hr 150 MG tablet Commonly known as: Wellbutrin-XL Take 1 (one) tablet by mouth once daily Start taking on: February 20, 2022 calcitriol 0.25 MCG capsule Commonly known as: Rocaltrol Take 1 (one) capsule by mouth every Saturday, Saturday & Saturday erythromycin 5 MG/GM ophthalmic ointment Commonly known as: Romycin Instill into right eye 4 times daily for 7 days escitalopram 20 MG tablet Commonly known as: Lexapro Take 1 (one) tablet by mouth once daily Start taking on: February 20, 2022 furosemide 20 MG tablet Commonly known as: Lasix Take 0.5 (one-half) tablet by mouth once daily Start taking on: February 20, 2022 latanoprost 0.005 % ophthalmic solution Commonly known as: Xalatan Instill 1 (one) drop into both eyes at bedtime for 14 days loratadine 10 MG tablet Commonly known as: Claritin Take 1 (one) tablet by mouth once daily Start taking on: February 20, 2022 oxyCODONE (immediate release) 5 MG tablet Commonly known as: Roxicodone Take 1 (one) tablet by mouth every 6 hours as needed pantoprazole EC 40 MG tablet Commonly known as: Protonix Take 1 (one) tablet by mouth once daily Start taking on: February 20, 2022 QUEtiapine 200 MG tablet Commonly known as: SEROquel Take 1 (one) tablet by mouth once daily Start taking on: February 20, 2022 saline nasal spray 0.65 % nasal spray Commonly known as: Bent; Baby Banks Noble 1 (one) spray into each nostril as needed for Dry Nose * sodium chloride 1 GM tablet Take 1 (one) tablet by mouth 3 times daily with meals for 4 days * sodium chloride 1 GM tablet Take 1 (one) tablet by mouth 2 times daily with morning and evening meal for 3 days * This list has 2 medication(s) that are the same as other medications prescribed for you. Read thedirections carefully, and ask your doctor or other care provider to review them with you. CHANGE how you take these medications citalopram 20 MG tablet Commonly known as: CeleXA Take 1 (one) tablet by mouth once daily Start taking on: February 20, 2022 What changed: ?? medication strength ?? how much to take ?? how to take this ?? when to take this CONTINUE taking these medications OMEPRAZOLE PO STOP taking these medications albuterol (5 MG/ML) 0.5% 48 mg in nacl 0.9 % diazePAM 2 MG tablet Commonly known as: Valium diclofenac sodium EC 50 MG tablet Commonly known as: Voltaren ELAVIL PO LOSARTAN POTASSIUM PO Where to Get Your Medications These medications were sent to [facility] - [address] [facility] [address] [address] [facility] [id number] ?? amoxicillin-clavulanate 875-125 MG tablet ?? artificial tears ophthalmic solution ?? erythromycin 5 MG/GM ophthalmic ointment ?? oxyCODONE (immediate release) 5 MG tablet ?? saline nasal spray 0.65 % nasal spray ?? sodium chloride 1 GM tablet You can get these medications from any pharmacy You don't need a prescription for these medications ?? acetaminophen 325 MG tablet Information about where to get these medications is not yet available Ask your nurse or doctor about these medications ?? buPROPion XL 24hr 150 MG tablet ?? calcitriol 0.25 MCG capsule ?? citalopram 20 MG tablet ?? escitalopram 20 MG tablet ?? furosemide 20 MG tablet ?? latanoprost 0.005 % ophthalmic solution ?? loratadine 10 MG tablet ?? pantoprazole EC 40 MG tablet ?? QUEtiapine 200 MG tablet ?? sodium chloride 1 GM tablet Follow-up Information Karrie Tompkins MD . Specialty: Family Medicine Why: Follow up with PCP 7-10 days after discharge Contact information: [address] [place] [address] Dr. Erazo [place] [id number] Follow up with provider . Why: follow with bridge clinic in 3 days Follow up with provider . Why: follow with pcp in 7 days Follow up with provider . Why: follow with ENT, nephrology, ophthalmology, ortho spine Discharge Instructions You will need to follow up in bridge clinic in 3 days with repeat labs to follow your Na level, please continue to take the NaCl tabs as prescribed until then. You will need to follow with nephrologyfor further workup of your low sodium level. Ortho spine evaluated you, you will need to follow up with them for repeat imaging of your spine due to your cervical stenosis. [facility] Otolaryngology (ENT) follow up instructions: For your facial fractures: ??? Wound(s): Recommend applying bacitracin antibiotic ointment to laceration 3 times per day for 5days and switch to vaseline ??? Take antibiotic as prescribed ??? Diet: please eat a soft diet to avoid displacing fractures ??? Avoid nose blowing and closed mouth sneezing to avoid displacing fractures ??? Follow up: Dr. George Villafuerte in 1 week for follow up of fractures and suture removal ??? Our schedulers will call to arrange this. You can also call to arrange for outpatient follow upin our clinic in the [facility] ([address] [place] [address]; [phone]). Ophthalmology (Eye) Instructions and Follow-up Information: Follow up with your regular mill house supervisor as scheduled on March 01, 2022. Feel free to call ouroffice if needed. Our contact information and location is listed below. Location: [place] [address]. ??? Our clinic is located on the [facility]. If you are driving, you should follow the blue signsto the blue elevators in the parking garage for the [facility]. You will proceed to the [facility] to register for your appointment and will be directed to our clinic, which isalso located on the same level. Telephone number: ??? During business hours (8am - 4pm, Saturday - Saturday, excluding holidays), you may call our clinicat . ??? If after these hours or on the weekend, you will need to call [facility] ([phone]), [phone] for the paper bag press operator, and say you are an eye patient and need to speak with the eye doctor button breaker operator. They will contact one of the eye doctors who will call you and address your concerns. Eye Drop Instructions: Apply erythromycin ointment to your stitches 4 times daily Activity Instructions: Do not rub your eyes No nose blowing for 2 weeks Signed: Meet Flores PA-C 02/19/2022 Time spent on discharge: 75 minutes. Time was spent on preparation of discharge records, prescriptions, counseling patient, working withsocial work and nursing. GER URGENT CARE documented in this encounter Discharge Instructions * Discharge Instructions* Deon Perez MD - 02/15/2022 1:23 AM MANAGER URGENT CARE Images from the original note were not included. [facility] Otolaryngology (ENT) follow up instructions: For your facial fractures: Wound(s): Recommend applying bacitracin antibiotic ointment to laceration 3 times per day for 5 days and switch to vaseline Take antibiotic as prescribed Diet: please eat a soft diet to avoid displacing fractures Avoid nose blowing and closed mouth sneezing to avoid displacing fractures Follow up: Dr. George Villafuerte in 1 week for follow up of fractures and suture removal Our schedulers will call to arrange this. You can also call to arrange for outpatient follow up in our clinic in the [facility] ([address] [place] [address]; [phone]). Ophthalmology (Eye) Instructions and Follow-up Information: Follow up with your regular mill house supervisor as scheduled on March 01, 2022. Feel free to call ouroffice if needed. Our contact information and location is listed below. Location: [address] [place] [address]. Our clinic is located on the [facility]. If you are driving, you should follow the blue signs to the blue elevators in the parking garage for the [facility]. You will proceed to the [facility] to register for your appointment and will be directed to our clinic, which is also located on the same level. Telephone number: During business hours (8am - 4pm, Saturday - Saturday, excluding holidays), you may call our clinic at . If after these hours or on the weekend, you will need to call [facility] ([phone]), dial [phone] for the paper bag press operator, and say you are an eye patient and need to speak with the eye doctor button breaker operator. They will contact one of the eye doctors who will call you and address your concerns. Eye Drop Instructions: Apply erythromycin ointment to your stitches 4 times daily Activity Instructions: Do not rub your eyes No nose blowing for 2 weeks GER URGENT CARE documented in this encounter Medications at Time [...] 4 hours as needed 4 mL 02/19/2022 meclizine (Antivert) 25 MG tablet meclizine 25 mg tablet 1 po tid prn 07/13/2021 pantoprazole EC (Protonix) 40 MG tablet Take 1 (one) tablet by mouth once daily 02/20/2022 saline nasal spray (Bent; Baby Banks) 0.65 % nasal spray Noble 1 (one) spray into each nostril as needed for Dry Nose 15 mL 02/19/2022 amoxicillin-clavulan ate (Augmentin) 875-125 MG tablet Take 1 (one) tablet by mouth 2 times daily for 7 days 14 tablet 02/19/2022 02/26/2022 buPROPion XL 24hr (Wellbutrin-XL) 150 MG tablet Take 1 (one) tablet by mouth once daily 02/20/2022 03/13/2022 calcitriol (Rocaltrol) 0.25 MCG capsule Take 1 (one) capsule by mouth every Saturday, Saturday & Saturday02/19/2022 06/08/2022 citalopram (CeleXA) 20 MG tablet Take 1 (one) tablet by mouth once daily 02/20/2022 06/08/2022 erythromycin (Romycin) 5 MG/GM ophthalmic ointment Instill into right eye 4 times daily for 7 days 1 g 02/19/2022 02/26/2022 escitalopram (Lexapro) 20 MG tablet Take 1 (one) tablet by mouth once daily 02/20/2022 06/23/2022 furosemide (Lasix) 20 MG tablet Take 0.5 (one-half) tablet by mouth once daily 02/20/2022 06/08/2022 latanoprost (Xalatan) 0.005 % ophthalmic solution Instill 1 (one) drop into both eyes at bedtime for 14 days 7.5 mL 02/19/2022 03/05/2022 loratadine (Claritin) 10 MG tablet Take 1 (one) tablet by mouth once daily 02/20/2022 05/15/2022 OMEPRAZOLE PO 05/15/2022 oxyCODONE, immediate release, (Roxicodone) 5 MG tablet Take 1 (one) tablet by mouth every 6 hours as needed 12 tablet 02/19/2022 05/15/2022 QUEtiapine (SEROquel) 200 MG tablet Take 1 (one) tablet by mouth once daily 02/20/2022 06/08/2022 sodium chloride 1 GM tablet Take 1 (one) tablet by mouth 3 times daily with meals for 4 days 02/19/2022 02/23/2022 sodium chloride 1 GM tablet Take 1 (one) tablet by mouth 2 times daily with morning and evening meal for 3 days 100 tablet 02/19/2022 02/22/2022 documented as of this encounter Progress Notes * Meet Leblanc RN - 02/19/2022 2:23 PM CST Discharge Date: 02/19/2022 Transportation at time of Discharge: private car Family Member who will transport: patient arranged Home Health Care Accepting Agency: [facility] Phone Number for Home Health Care Agency: [phone] Date Services to begin: 02/21/2022 Comments: Discharge information faxed to [phone]. No further case management needs at this time. Meet Leblanc RN Case Manager [phone] GER URGENT CARE * Ike Lisa, PT - 02/19/2022 1:35 PM CST [facility] Physical Medicine and Rehabilitation Physical Therapy Progress Note Patient: Kandace Cole [facility] Record Number: [id number] Date of : 1950 Age: [age] year old PPE worn by staff: mask - procedural;gloves PPE worn by patient: mask - procedural Tech: No Discharge Recommendation: Patient should be able to return home when medically cleared by physicianteam. Therapy will continue to treat patient while in hospital. See current amount of assist neededbelow. Patient currently using Wheeled Walker and has equipment at home. No equipment needs if d/c home. SUBJECTIVE: Subjective: Pt agreeable to PT, ambulation; I'm going home today Pain Assessment: Pain Rating Score #: 7 Pain Location : Back Follow-up for pain: No follow-up for pain indicated and patient agreed to proceed with treatment PRECAUTIONS: OBJECTIVE: At start of therapy session, patient found in bed and with no alarm General Appearance: NAD LDAs: IV's: Peripheral line Vitals: (*Assess the 3 levels of oxygen saturations both for room air and 02 unless rest on room air is 88% or less). Rest BP: HR: Sp02 Sp02 Room Air L O2 Ex/Gait/Activity Without 02 BP: HR: Sp02 Room Air Ex/Gait/Activity With 02 BP: HR: Sp02 L O2 Post Activity BP: 163/56 HR: 106 Sp02 Sp02 100% L O2 Room Air RA Observations: Pt on RA, no c/o dyspnea or dizziness during session. Mental Status/Cognition: Orientation Level: Oriented X4 Cognition: Follows Commands-Consistent Mobility: A gait belt and non-slip socks were used for all out of bed activity this date. Bed Mobility: Supine to Sit: Stand By Assist with HOB in semi-fowlers position Sit to Supine: Stand By Assist Transfers: Sit to Stand: Stand By Assist Stand to Sit: Stand By Assist Gait: Distance Ambulated: 140 FEET Ambulation: Assistive Device: Walker-2 Wheeled Ambulation: Level of Assistance: Stand By Assist Comments: Balance: Balance Scales/Tests Used: Sitting: Static/Dynamic;Standing: Static/Dynamic Sitting - Static: Good Sitting - Dynamic: Good Standing - Static: Good Standing - Dynamic: Good ACTIVITY TOLERANCE: Patient's activity tolerance: fair. TREATMENT/INTERVENTIONS: bed mobility training, transfer training and gait training EDUCATION: While performing PT, Patient was instructed in:functional mobility training, safety awareness/fall precautions Presented to patient who demonstrates Good understanding of instructions given. ASSESSMENT: Patient would benefit from additional Physical Therapy sessions to achieve the following functionalgoals to enhance independence. INFORMED CONSENT TO TREATMENT: Plan of care [...] details. Following therapy session, patient left in bed. GER URGENT CARE * Shoshana Tenoroi CPhT - 02/19/2022 1:13 PM CST MEDICATION TO BEDSIDE DELIVERY: COMPLETE Medication to Bedside delivery was completed for Kandace Cole. ??? A total of 6 prescriptions were delivered to the patient for discharge. ??? Medications were given to NURSE (MEET AWARE OF MED DELIVERY ) ??? This delivery included a controlled substance: YES, given to MEET ??? This delivery included medication that should be stored in the fridge: NO Thank you for allowing the outpatient pharmacy to participate in the care of Kandace Cole. If you have any questions, please contact the outpatient pharmacy at [phone]. Shoshana Tenorio CPhT [facility] at [address] [place], [place] [address] Hours of Operation Saturday - Saturday: 8:00am to 6:00pm Saturday: 9:00am to 1:00pm Epic: [facility] *Ensure the patient and clinic's nearby ZIP codes box is unchecked* GER URGENT CARE * Meet Quiroga RN - 02/19/2022 10:56 AM CST Problem: Fall Risk Goal: Fall risk and fall related injury risk are minimized (interventions related to the fall risk can be found in the flowsheet documentation) 02/19/2022 1056 by Meet Quiroga RN Outcome: Adequate for Discharge 02/19/2022 1039 by Meet Quiroga RN Outcome: Progressing Problem: Pain/Discomfort Goal: Patient exhibits reduced pain/discomfort as evidenced by pain scores 02/19/2022 1056 by Meet Quiroga RN Outcome: Adequate for Discharge 02/19/2022 1039 by Meet Quiroga RN Outcome: Progressing Goal: Patient uses pharmacological and non-pharmacological pain management strategies. 02/19/2022 1056 by Meet Quiroga RN Outcome: Adequate for Discharge 02/19/2022 1039 by Meet Quiroga RN Outcome: Progressing Goal: Patient verbalizes acceptable level of pain relief and ability to engage in desired activity. 02/19/2022 1056 by Meet Quiroga RN Outcome: Adequate for Discharge 02/19/2022 1039 by Meet Quiroga RN Outcome: Progressing Problem: Mobility Goal: LTG - Patient will ambulate household distance 02/19/2022 1056 by Meet Quiroga RN Outcome: Adequate for Discharge 02/19/2022 1039 by Meet Quiroga RN Outcome: Progressing Problem: Balance Goal: LTG - Patient will demonstrate Intervention to enhance balance for safe completion of daily activities 02/19/2022 1056 by Meet Quiroga RN Outcome: Adequate for Discharge 02/19/2022 1039 by Meet Quiroga RN Outcome: Progressing [facility] * Meet Quiroga RN - 02/19/2022 10:39 AM CST Problem: Fall Risk Goal: Fall risk and fall related injury risk are minimized (interventions related to the fall risk can be found in the flowsheet documentation) Outcome: Progressing Problem: Pain/Discomfort Goal: Patient exhibits reduced pain/discomfort as evidenced by pain scores Outcome: Progressing Goal: Patient uses pharmacological and non-pharmacological pain management strategies. Outcome: Progressing Goal: Patient verbalizes acceptable level of pain relief and ability to engage in desired activity. 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 [facility] * Tyson Amado RN - 02/19/2022 2:20 AM CST Problem: Fall Risk Goal: Fall risk and fall related injury risk are minimized (interventions related to the fall risk can be found in the flowsheet documentation) Outcome: Progressing Problem: Pain/Discomfort Goal: Patient exhibits reduced pain/discomfort as evidenced by pain scores Outcome: Progressing Goal: Patient uses pharmacological and non-pharmacological pain management strategies. Outcome: Progressing Goal: Patient verbalizes acceptable level of pain relief and ability to engage in desired activity. Outcome: Progressing Problem: Mobility Goal: LTG - Patient will ambulate household distance Outcome: Progressing Problem: Balance Goal: LTG - Patient will demonstrate Intervention to enhance balance for safe completion of daily activities Outcome: Progressing [facility] * Victoria Cormier RN - 02/18/2022 4:04 PM CST Problem: Fall Risk Goal: Fall risk and fall related injury risk are minimized (interventions related to the fall risk can be found in the flowsheet documentation) Outcome: Progressing [facility] * Meet Flores PA-C - 02/18/2022 8:22 AM CST Hospitalist Daily Progress Note Name: Kandace Cole Age: [age] year old Room: 897/163j Date Admitted: 02/14/2022 Hospital Course: Kandace Cole is a 72 year old female with past medical history of fibromyalgia, hypertension, hyperlipidemia, CKD stage 4, T2DM and depression presented on 02/14 from OSH for further evaluation of facial bone fractures s/p fall. 24H/S: Patient seen and examined at bedside. Her dizziness has been persistent. I explained that we are working up her hyponatremia. Vitals: BP 130/60 Pulse 77 Temp 98 ??F (36.7 ??C) Resp 18 Ht 1.651 m (5' 5 ) Wt 70.3 kg (155 lb) SpO2 98% PE: General appearance - alert and oriented, well appearing female, and in no acute distress HEENT - laceration over R eyebrow healing well Chest - clear to auscultation, no wheezes, rales or rhonchi, symmetric air entry, breathing comfortably on room air Heart - normal rate, regular rhythm, normal S1, S2, no murmurs, rubs, clicks or gallops Abdomen - soft, nontender, nondistended, no masses or organomegaly Musculoskeletal - no joint tenderness, deformity or swelling Skin - normal coloration and turgor, no rashes, no suspicious skin lesions noted Assessment and plan: Syncope and fall Has happened several times this year. States she gets dizzy when she turns her head too quickly. Positive orthostatic BP. TTE without evidence of R to L shunt. TSH wnl. Carotid duplex with homogenous, smooth, atherosclerotic plaque in R common carotid artery, < 50% stenosis, antegrade blood flow. PLAN: Telemetry PT/OT Neuro checks q4h Compression stockings Hyponatremia Na 126 today from 128 yesterday. TSH wnl. Urine Na 55. PLAN: Start salt tabs AM cortisol and ACTH stim test pending Ctm, will repeat BMP this afternoon Severe cervical stenosis Hx of cervical intervertebral disc degeneration s/p surgery (2006) Had a referral to follow up with NSGY outpatient. She has had recent worsening of neck pain with decreased ROM of neck, weakness in bilateral hands. Ortho spine was consulted. PLAN: AAT, follow up with Dr. Taylor (ortho spine) in 2 weeks with XR C spine Pain control, bowel regimen Multiple closed bone facial fractures Seen by Ophthalmogloy and ENT, no acute surgical intervention warranted. PLAN: Continue Augmentin x 7 days No nose blowing x 2 weeks, may use Afrin or other OTC nasal decongestants Erythromycin QID over R eyebrow sutures Ice packs prn x 48 hours Follow up with ophthalmology scheduled on 03/01/22 Will need to follow with ENT in 1 week Other chronic medical conditions T2DM: A1c 5.1, hold home weekly bydureon injections, stop SSI and accu checks as BG has been wnl Hypertension: continue home lasix 10 mg daily, hold lisinopril 20 mg daily and coreg 6.25 mg BID for now and restart as needed (patient hypotensive today) Depression/anxiety: continue home bupropion, citalopram, lexapro, seroquel CKD stage 4 2/2 hypertension and DM: creatinine is stable (baseline 1.5-2.0), continue home calcitriol 0.25 mcg q MWF, follows with outpatient nephrology Hyperlipidemia Ferrell's esophagus: follow up with GI outpatient, most recent EGD in 2019, continue protonix 40 mgdaily Dementia Inpatient Checklist -LDA: PIV -Antibiotic end date: 02/20 -Consults: ENT, Ophtho, Ortho spine -DVT: Heparin sq -Diet: Diabetic -Code: Full -Dispo: Inpatient Meet Flores PA-C Pager Feel free to text page me through [employer] Date of service: 02/18/2022 Attending Physician: Abeba Will DO [facility] * Tyson Amado RN - 02/18/2022 1:31 AM CST Problem: Fall Risk Goal: Fall risk and fall related injury risk are minimized (interventions related to the fall risk can be found in the flowsheet documentation) Outcome: Progressing Problem: Pain/Discomfort Goal: Patient exhibits reduced pain/discomfort as evidenced by pain scores Outcome: Progressing Goal: Patient uses pharmacological and non-pharmacological pain management strategies. Outcome: Progressing Goal: Patient verbalizes acceptable level of pain relief and ability to engage in desired activity. Outcome: Progressing Problem: Mobility Goal: LTG - Patient will ambulate household distance Outcome: Progressing Problem: Balance Goal: LTG - Patient will demonstrate Intervention to enhance balance for safe completion of daily activities Outcome: Progressing [facility] * Victoria Cormier RN - 02/17/2022 4:36 PM CST Problem: Fall Risk Goal: Fall risk and fall related injury risk are minimized (interventions related to the fall risk can be found in the flowsheet documentation) Outcome: Progressing Problem: Pain/Discomfort Goal: Patient exhibits reduced pain/discomfort as evidenced by pain scores Outcome: Progressing Goal: Patient uses pharmacological and non-pharmacological pain management strategies. Outcome: Progressing Goal: Patient verbalizes acceptable level of pain relief and ability to engage in desired activity. Outcome: Progressing Problem: Mobility Goal: LTG - Patient will ambulate household distance Outcome: Progressing Problem: Balance Goal: LTG - Patient will demonstrate Intervention to enhance balance for safe completion of daily activities Outcome: Progressing [facility] * Meet Flores PA-C - 02/17/2022 2:03 PM CST Hospitalist Daily Progress Note Name: Kandace Cole Age: [age] year old Room: 837/[facility] Date Admitted: 02/14/2022 Hospital Course: Kandace Cole is a 72 year old female with past medical history of fibromyalgia, hypertension, hyperlipidemia, CKD stage 4, T2DM and depression presented on 02/14 from OSH for further evaluation of facial bone fractures s/p fall. 24H/S: Patient seen and examined at bedside. She does not have any complaints today besides ongoing dizziness with head movement. She explained she does not want to go to SNF due to being worried about getting covid there. Vitals: BP 95/42 Pulse 75 Temp 98.7 ??F (37.1 ??C) Resp 16 Ht 1.651 m (5' 5 ) Wt 70.3 kg (155 lb) SpO2 94% PE: General appearance - alert, well appearing female, and in no acute distress HEENT - laceration over R eyebrow healing well Chest - clear to auscultation, no wheezes, rales or rhonchi, symmetric air entry, breathing comfortably on room air Heart - normal rate, regular rhythm, normal S1, S2, no murmurs, rubs, clicks or gallops Abdomen - soft, nontender, nondistended, no masses or organomegaly Musculoskeletal - no joint tenderness, deformity or swelling Skin - normal coloration and turgor, no rashes, no suspicious skin lesions noted Assessment and plan: Syncope and fall Has happened several times this year. States she gets dizzy when she turns her head too quickly. Positive orthostatic BP. TTE without evidence of R to L shunt. TSH wnl. Carotid duplex with homogenous, smooth, atherosclerotic plaque in R common carotid artery, < 50% stenosis, antegrade blood flow. PLAN: Telemetry PT/OT Neuro checks q4h Compression stockings Hyponatremia Na 128 today from 131 yesterday. TSH wnl. PLAN: Urine studies pending Ctm Severe cervical stenosis Hx of cervical intervertebral disc degeneration s/p surgery (2006) Had a referral to follow up with NSGY outpatient. She has had recent worsening of neck pain with decreased ROM of neck, weakness in bilateral hands. Ortho spine was consulted. PLAN: AAT, follow up with Dr. Taylor (ortho spine) in 2 weeks with XR C spine MRI C spine pending Pain control, bowel regimen Multiple closed bone facial fractures Seen by Ophthalmogloy and ENT, no acute surgical intervention warranted. PLAN: Continue Augmentin x 7 days No nose blowing x 2 weeks, may use Afrin or other OTC nasal decongestants Erythromycin QID over R eyebrow sutures Ice packs prn x 48 hours Follow up with ophthalmology scheduled on 03/01/22 Will need to follow with ENT in 1 week Other chronic medical conditions T2DM: A1c 5.1, hold home weekly bydureon injections, stop SSI and accu checks as BG has been wnl Hypertension: continue home lasix 10 mg daily, hold lisinopril 20 mg daily and coreg 6.25 mg BID for now and restart as needed (patient hypotensive today) Depression/anxiety: continue home bupropion, citalopram, lexapro, seroquel CKD stage 4 2/2 hypertension and DM: creatinine is stable (baseline 1.5-2.0), continue home calcitriol 0.25 mcg q MWF, follows with outpatient nephrology Hyperlipidemia Ferrell's esophagus: follow up with GI outpatient, most recent EGD in 2019, continue protonix 40 mgdaily Dementia Inpatient Checklist -LDA: PIV -Antibiotic end date: 02/20 -Consults: ENT, Ophtho, Ortho spine -DVT: Heparin sq -Diet: Diabetic -Code: Full -Dispo: Inpatient Meet Flores PA-C Pager Feel free to text page me through [employer] Date of service: 02/17/2022 Attending Physician: Abeba Will DO [facility] * Saira Soto MD - 02/17/2022 7:58 AM CST [facility] Orthopedic Spine Surgery Daily Progress Note Kandace Cole, 72 year old, female : 1950 CSN: [id number] Primary Care Physician: Karrie Tompkins MD - Admission Date/Time: 02/14/2022 10:07 PM - Hospital Day: 3 Subjective Patient seen and examined this AM on rounds. No acute events overnight, pain controlled. Vitals Temp (24hrs), Av ??F (36.7 ??C), Min:97.7 ??F (36.5 ??C), Max:98.2 ??F (36.8 ??C) BP 127/69 Pulse 75 Temp 98.2 ??F (36.8 ??C) (Oral) Resp 18 Ht 5' 5 (1.651 m) Wt 155 lb (70.3 kg) SpO2 94% Labs Recent Labs Component Name 02/17/22 0612 02/16/22 0757 02/14/22 2355 WBC 5.8 5.7 9.5 HGB 9.6* 10.5* 9.9* HCT 28.3* 31.8* 30.1* PLTCOUNT 259 300 304 No results for input(s): INR in the last 07734 hours. Physical Exam General: Awake, cooperative, in no acute distress. CV: Regular rate. Pulm: No audible wheezing, no use of accessory muscles Abd: soft, nontender, nondistended Musculoskeletal: Bilateral Upper Extremity: - Motor: Shoulder Abduction 5/5 Elbow Extension 5/5 Elbow Flexion 5/5 Wrist Extension 5/5 Wrist Flexion 5/5 Finger Flexion 5/5 Finger Abduction 5/5 - Sensory: intact to light touch in C5-T1 distribution Bilateral Lower Extremity: - Motor: Hip Flexion 5/5 Knee Flexion 5/5 Knee Extension 5/5 Ankle Dorsiflexion 5/5 Great Toe Extension 5/5 Ankle Plantarflexion 5/5 - Sensation: intact to light touch distally in L1-S1 distribution Assessment/Plan Patient is a 72 year old, female with cervical stenosis 1. AAT 2. MRI reviewed with attending, plan for possible surgery on outpatient basis 3. No orthopedic spine intervention on this admission. Please page with any questions or concerns Upon Discharge patient should follow up with Dr. Taylor in 2 week(s) with the following imaging studies: XR cervical spine. They will need to call our clinic to schedule/confirm appointment, contact information listed below. [facility] Orthopedic Surgery office contact information: [facility] at [address], First Floor [place], [place] [id number] [facility] [address] [place] [address], [place] [address] [facility] at [facility] [address] [place] [address], [address] [place] [address] Saira Soto MD 02/17/2022 7:58 AM [facility] * Tyson Amado RN - 02/17/2022 12:15 AM CST Problem: Fall Risk Goal: Fall risk and fall related injury risk are minimized (interventions related to the fall risk can be found in the flowsheet documentation) Outcome: Progressing Problem: Pain/Discomfort Goal: Patient exhibits reduced pain/discomfort as evidenced by pain scores Outcome: Progressing Goal: Patient uses pharmacological and non-pharmacological pain management strategies. Outcome: Progressing Goal: Patient verbalizes acceptable level of pain relief and ability to engage in desired activity. Outcome: Progressing Problem: Mobility Goal: LTG - Patient will ambulate household distance Outcome: Progressing Problem: Balance Goal: LTG - Patient will demonstrate Intervention to enhance balance for safe completion of daily activities Outcome: Progressing [facility] * Tyson Amado RN - 02/16/2022 9:25 PM CST Pt.was asking if she can be prescribed Bydureon, an anti-diabetic medication, at home. She stated she received a dose of Bydureon here and she feels it was very effective in lowering her blood sugar.RN advised pt to discuss it with her primary team doctors but will also passed this info on to the team. [facility] * Pi, MD Renee - 02/16/2022 3:58 PM CST [facility] Ophthalmology Consult Progress Note Patient: Kandace Cole Sex: female Age: [age] year old Date of : 1950 Date of Admission: 02/14/2022 Date: 02/16/2022 LOS: 0 Subjective Interval History: Pt reports vision stable since last evalution. Reports some floaters in right eye that started a few weeks before her injury. Reports has not received any eye drops or ointment since admission. HPI per Dr. Cisneros on 02/15/22: Kandace Cole is a 72 year old female with a history of T2DM, CKD, fibromyalgia, and Ferrell's esophagus who presents s/p ground level fall which occurred on 02/14/22. States she was in the parkinglot of the [facility] cancer center when she became dizzy and fell, landing on the asphalt. Reports that she has had issues with dizziness due to neck abnormalities, and reports frequent head turning in a test she was completing there which she believes led to her fall. She was evaluated in the [facility] ED and found to have fractures of the right zygomaticomaxillary complex, rightzygomatic arch, anterior & lateral pérez of the right maxillary sinus, and right medial orbital wall for which she was transferred to [facility] for further evaluation. Patient reports a headache and mild pain in right gaze. States that her vision in the right eye has always been worse in the left eye, but she has no acute changes. Notes that she has been seeing a couple of floaters intermittently in her right eye over the last couple of weeks. They occur in the temporal aspect of her visual field. States there is one dark spot and one spot which looks like a spider web. She has an upcoming appointment with her mill house supervisor on 03/01/22 who is following her for glaucoma & macular degeneration. No flashes or curtains. No diplopia or N/V. Objective Vitals: BP 114/53 Pulse 74 Temp 97.8 ??F (36.6 ??C) Resp 18 Ht 5' 5 (1.651 m) Wt 155 lb (70.3 kg) SpO2 100% Physical Exam: Base Eye Exam Visual Acuity (Car Card) Right Left Near cc 20/30 niph 20/30-2 ph 20/25 Tonometry (Tonopen, 8:11 AM) Right Left Pressure 13 13 Pupils Pupils APD Right PERRL None Left PERRL None Visual [place] (Counting fingers) Left Right Full Full Extraocular Movement Right Left Full Full Dilation Both eyes: 1.0% Mydriacyl, 2.5% Fabricio Synephrine @ 4:15 PM Slit Lamp and Fundus Exam Pen Light Exam Right Left Lids/Lashes Repaired laceration just inferior to the temporal aspect of the eyebrow, mild UL temporal edema Normal Conjunctiva/Sclera White and quiet White and quiet Cornea Clear Clear Anterior Chamber Deep and quiet Deep and quiet Iris Round and reactive Round and reactive Lens PCIOL, anterior capsular phimosis PCIOL, trace PCO Vitreous Syneresis Syneresis Fundus Exam Right Left Disc Cupping Cupping C/D Ratio 0.6 0.75 Macula Central chorioretinal scar Central chorioretinal scar Vessels Normal Normal Periphery Pigmentary changes, no tears/detachments Pigmentary changes, no tears/detachments Assessment / Plan Suspected medial wall fracture of right orbit without clinical evidence of entrapment - Mechanism and date of injury: fall onto asphalt 02/14/22 - [facility] 20/30 OD, 20/20 OS (broke glasses during fall), IOP physiologic OU - Motility full, so forced ductions not performed - HR stable, motility testing did not induce nausea/vomiting or bradycardia - CT facial bones as above. Globes are round and symmetric. Can trace extraocular muscles back to their insertion. - Mild periorbital swelling with eyebrow laceration which was repaired at the [facility]. No retrobulbar hemorrhage. No proptosis, mostly periorbital swelling and emphysema. Able to open palpebral fissue without assistance. - No evidence of ruptured globe. Pupils round, reactive and symmetric. A/C deep and well formed. Globe well formed on imaging. - DFE without tears or detachments ?? Right eyebrow laceration, s/p repair - Repaired at outside ED ?? History of glaucoma, unspecified type - On a blue top IOP drop BID OU - IOP physiologic - DFE with cupped optic nerves OU ?? History of macular degeneration - Per patient report, taking AREDS vitamins - DFE with chorioretinal scarring in the macula OU - Follows with mill house supervisor in [place] regularly, has appt 03/01/22 ?? T2DM without retinopathy - Last Hgb A1c ~5.8 per patient - No retinopathy seen on DFE ?? Pseudophakia OU Recommendations: ??? Resume latanoprost qhs both eyes ??? Start erythromycin to brow lac 4 times daily until healed ??? No nose blowing x2 weeks, patient may use Afrin or other OTC nasal decongestants as directed ??? Broad spectrum antibiotics x7 days per primary team (recommend Keflex or Augmentin) ??? Pain control per primary team ??? Ice packs may be applied to both eyes x48 hours as tolerated ??? Call immediately with any new restriction of eye motility, diplopia, intractable nausea/vomiting, bradycardia, or decreased vision - FOLLOW-UP PLAN: Has follow up scheduled with her mill house supervisor on 03/01/22, will provide our contact information in patient discharge instructions if needed. Thank you for this consult. If you have any questions, please feel free to reach out via [email or web address] secure chat or page ophthalmology. This patient has been seen with Dr. Adames. Renee Torres MD Ophthalmology Resident 02/16/2022 5:13 PM [facility] Associated attestation - Cesar Adames MD - 02/18/2022 8:19 PM MANAGER URGENT CARE I have reviewed the resident note, the documented assessment and plan, and all associated tests, labs, and imaging. I have not personally examined the patient with the resident. Cesar Adames MD, PhD Attending, Cornea and Anterior Segment Service Date of Service: 02/16/2022 * Meet Leblanc, RN - 02/16/2022 3:15 PM CST Case Management Initial Assessment Case Management screen completed & Welcome Letter given. Anticipated level of care at discharge: Home Discharge Plans: Home Prior Level of Functioning: Patient is independent with ADLs. She has a walker at home to help withlocomotion. Patient transferred from [facility] for further evaluation of facial bone fractures after a fall. Lives with: Other (Comment) (Lives with grandson) Basic Needs Assessment (BNA) Score: n/a Readmission: no Met with patient Discharge Goals and Plans: Patient Goals: Discharge home Plans: No discharge needs identified at this time. Consult Case Management if discharge planning needs arrise. Upon discharge or transfer to a post acute facility should rehospitalization, home health, rehabilitation, or any other follow up care be required, patient's preference is to stay within the [facility] Network and its affiliates.: Yes Verify Family Support (name and phone): Extended Emergency Contact Information Primary Emergency Contact: BARBARA CISNEROS Mobile Relation: Brother Secondary Emergency Contact: JanuaryBarbara Address: BROTHER Relation: Other Patient or corporate representative requests care coordination reach out to family or caregiver listed above regarding discharge planning and at time of discharge? No Anticipated Discharge Date: 02/19/22 Patient/Family provided with list of resources? Unknown Preferred Provider / High Quality Network List given?: Unknown Reason for provider choice: Unknown Transportation at Discharge: Family Transportation to MD appointments: Family Equipment at Home: Equipment at Home: Cane-Straight;Walker-2 Wheeled If no PCP, action taken: Karrie Tompkins MD is PCP Pharmacy benefit: Yes Medication affordability concerns: No Hunger Screening: Within the past 12 months, you worried that your food would run out before you got the money to buymore.: Never true Within the past 12 months, the food you bought just didn't last and you didn't have money to get more.: Never true Food Bank Resources Provided: Patient refused Bundle Wrapper Referral: No If patient requires HHC at discharge, he/she requests: Patient agreeable to speak with [facility] Home Will continue to follow. For any questions or needs please contact: Manager Customer Name/Phone number: Meet Leblanc RN Case Manager [phone] [facility] * Camilla Trevino, PT - 02/16/2022 8:50 AM CST [facility] Physical Medicine and Rehabilitation Physical Therapy Initial Evaluation Note Patient: Kandace Cole [facility] Record Number: [id number] Date of : 1950 Age: [age] year old CO-EVAL WITH OT PPE worn by staff: gloves;mask - procedural PPE worn by patient: mask - procedural Tech: NO Discharge Recommendation: Patient will benefit from multidisciplinary inpatient therapies. In addition to the 1:1 evaluation of the patient, additional eval time was spent completing the chart review prior to the assessment, completing the multidisciplinary plan of care and education plan post evaluation and communicating results of the eval to other treatment team members. Occupational Therapy contacted regarding patient status and/or discharge plan. Physician Orders: Evaluation and Treat PRECAUTIONS: Weight Bearing Status: (WBAT) Activity Level: Activity as Tolerated DIAGNOSIS: Patient Active Problem List: Degeneration of cervical intervertebral disc Syncope and collapse Trauma Injury of head, initial encounter Fall, initial encounter Multiple closed fractures of facial bone, initial encounter ([facility]) Past Medical History: Diagnosis Date ??? ANEMIA ??? Diabetes ??? Disease of Esophagus ??? Fibromyalgia ??? Glaucoma ??? HTN (HYPERTENSION) ??? Macular Degeneration ??? Osteoarthritis ??? Raynaud Disease ??? Ulnar Neuropathy SUBJECTIVE: Subjective: AGREEABLE TO WORK WITH THERAPY PATIENT GOALS: FEEL BETTER Home Situation: Type of Residence: Private Residence Lives with:: (GRANDSON) Steps to Enter: 1 Ramp: No Handrails: Indoor;Outdoor Home Structure: One Story Primary Bedroom: First Floor Primary Bathroom: First Floor Bathroom : Tub/Shower Combo Equipment at Home: (CANE WHEELED WALKER) Prior Level of Functioning: Mobility: Ambulate-In Community;With Assistive Device Fallen Within 6 Mos: 2 Have Help at Home?: Yes, there is help at home now Who assists you at home?: Friends/Family Oxygen at Home: No Activity at Home: Active Pain Assessment: Pain Rating Score #: (MOD C/O NECK PAIN AND HEADACHE) Follow-up for pain: No follow-up for pain indicated and patient agreed to proceed with treatment OBJECTIVE: At start of therapy session, patient found in patient bedside chair, with chair alarm on and OUT INCOMMON AREA. General Appearance: SITTING UP IN CHAIR. BANDAGE NEAR R EYE LDAs: IV's: Peripheral line Edema: no edema noted in bilateral lower extremities Vitals: (*Assess the 3 levels of oxygen saturations both for room air and 02 unless rest on room air is 88% or less). Rest BP: 129/56 HR: 75 Sp02 Sp02 100% Room Air L O2 Ex/Gait/Activity Without 02 BP: HR: Sp02 Room Air Ex/Gait/Activity With 02 BP: HR: Sp02 L O2 Post Activity BP: 163/82 HR: 103 Sp02 Sp02 93% L O2 Room Air Observations: Mental Status/Cognition: Level of Consciousness-Adult: Alert Orientation Level: Oriented X4 Cognition: Follows Commands-Consistent Attention Span: Appears intact Following Commands: Follows one step commands consistently ROM: RLE: AROM WFL LLE: AROM WFL Strength: RLE:WFL LLE: WFL Tone: RLE: no abnormal tone noted LLE: no abnormal tone noted Coordination: RLE: not tested LLE: not tested Sensation: RLE: intact LLE: intact Perception: Visual/Motor Mobility: A gait belt and non-slip socks were used for all out of bed activity this date. Bed Mobility: Rolling: Activity Does Not Occur (PT UP IN CHAIR) Supine to Sit: Activity Does Not Occur Sit to Supine: Activity Does Not Occur Transfers: Sit to Stand: Minimal Assistance Stand to Sit: Minimal Assistance Gait: Weight Bearing Status: (WBAT) Distance Ambulated: (50') Ambulation: Assistive Device: Gait Belt;Walker-2 Wheeled Ambulation: Level of Assistance: Minimum Assistance Ambulation: Gait Deviations: (NARROW MARY, STIFF LEGGED GAIT GUARDED IN APPEARANCE) Balance: Balance Scales/Tests Used: Sitting: Static/Dynamic;Standing: Static/Dynamic Sitting - Static: Good Sitting - Dynamic: Good - Standing - Static: (PT HELD TO WALKER WITH STANDING) Standing - Dynamic: Not tested ACTIVITY TOLERANCE: Patient's activity tolerance: fair TREATMENT/INTERVENTIONS: evaluation Modified [place]: EDUCATION: While performing PT, Patient was instructed in:functional mobility training Presented to patient who demonstrates Good understanding of instructions given. INFORMED CONSENT TO TREATMENT: Plan of care including recommended therapy, goals and frequency, discussed with patient who understands and agrees to proceed. ASSESSMENT: Patient would benefit from additional Physical Therapy sessions to achieve the following functionalgoals to enhance independence. Short Term Goals: Goal Formation With patient Patient will perform bed mobility with stand by assist Patient will transfer sit to/from stand with stand by assist Patient will transfer bed to/from chair with stand by assist Patient will ambulate 100 feet with stand by assist and with minimal assist and appropriate AD Long-Term Goal(s): Patient to discharge to appropriate next level of inpatient care. Equipment Issued: gait belt Plan: Plan: Gait training Transfer training Assistive device training Bed mobility training If patient is discharged from the facility, this note serves as a discharge summary if further physical therapy visits did not occur. Refer to filed flowsheet for further details. Following therapy session, patient left in patient bedside chair, with chair alarm on, with call light within reach. [facility] * Jurgen Rivera, OT - 02/16/2022 8:50 AM CST [facility] Physical Medicine and Rehabilitation Occupational Therapy Initial Evaluation Note Patient: Kandace Cole [facility] Record Number: [id number] Date of : 1950 Age: [age] year old PPE worn by staff: gloves;mask - procedural;mask - N95;eye protection PPE worn by patient: mask - procedural;gown - patient, clean;socks - clean Co-tx with PT Discharge Recommendation: Patient will benefit from multidisciplinary inpatient therapies. In addition to the 1:1 evaluation of the patient, additional eval time was spent completing the chart review prior to the assessment, completing the multidisciplinary plan of care and education plan post evaluation and communicating results of the eval to other treatment team members. Nurse and Physical Therapy contacted regarding patient status and/or discharge plan. Physician Orders: Evaluation and Treat Activity Level: up as sridevi PRECAUTIONS: Weight Bearing Status: (BAT) DIAGNOSIS: Patient Active Problem List: Degeneration of cervical intervertebral disc Syncope and collapse Trauma Injury of head, initial encounter Fall, initial encounter Multiple closed fractures of facial bone, initial encounter ([facility]) Past Medical History: Diagnosis Date ??? Anemia ??? Diabetes ??? Disease of esophagus ??? Fibromyalgia ??? Glaucoma ??? HTN (hypertension) ??? Macular degeneration ??? Osteoarthritis ??? Raynaud disease ??? Ulnar neuropathy SUBJECTIVE: Subjective: Pt stated I'm alright . PATIENT GOALS: Patient's Primary Concern: to go home Home Situation: Type of Residence: Private Residence Lives with:: (GRANDSON) Handrails: Indoor;Outdoor Home Structure: One Story Primary Bedroom: First Floor Primary Bathroom: First Floor Bathroom : Tub/Shower Combo Equipment at Home: (CANE WHEELED WALKER) Prior Level of Functioning: Mobility: Ambulate-In Community;With Assistive Device Fallen Within 6 Mos: 2 Have Help at Home?: Yes, there is help at home now Who assists you at home?: Friends/Family Oxygen at Home: No Activity at Home: Sedentary Pain Assessment: Pain Rating Score #: (MOD C/O NECK PAIN AND HEADACHE) Follow-up for pain: No follow-up for pain indicated and patient agreed to proceed with treatment OBJECTIVE: At start of therapy session, patient found in patient bedside chair and with chair alarm on General Appearance: 72yr old female resting comfortably in chair in hallway [facility]. LDA: IV's: Peripheral line Edema: No edema noted Vitals: (*Assess the 3 levels of oxygen saturations both for room air and 02 unless rest on room air is 88% or less). Rest BP: 129/56 HR: 75 Sp02 ?? Sp02 100% Room Air ?? L O2 ? Ex/Gait/Activity Without 02 BP: ?? HR: ?? Sp02 ?? Room Air ?? Ex/Gait/Activity With 02 BP: ?? HR: ?? Sp02 ?? L O2 ?? Post Activity BP: ? 163/82 HR: ? 103 Sp02 ?? Sp02 ? 93% L O2 ?? Room Air ?? Observations: No signs or symptoms of distress noted during session. Mental Status/Cognition: Level of Consciousness-Adult: Alert Orientation Level: Oriented X4 Cognition: Follows Commands-Consistent Attention Span: Appears intact Memory: Appears intact Following Commands: Follows one step commands with increased time Safety Judgement: Decreased awareness of need for safety Awareness of Errors: Decreased awareness of deficits UE ROM: RUE: AROM WFL LUE: AROM WFL Strength: RUE: WNL LUE: WNL UE Tone RUE: no abnormal tone noted LUE: no abnormal tone noted Coordination: intact serial opposition for bilateral hands UE Proprioception RUE: WFL LUE: WFL UE Sensation RUE: intact LUE: intact Perception: Inattention/Neglect: Appears intact Initiation: Appears intact Motor Planning: Appears intact Visual/Motor Tracking: Able to track stimulus in all quads w/o difficulty Mobility: A gait belt and non-slip socks were used for all out of bed activity this date. Bed Mobility: Rolling: Activity Does Not Occur (PT UP IN CHAIR) Supine to Sit: Activity Does Not Occur with HOB flat Sit to Supine: Activity Does Not Occur Transfers: Sit to Stand: Minimal Assistance Stand to Sit: Minimal Assistance Transfer Device: Walker-2 Wheeled;Gait belt Functional Ambulation: Functional mobility of ambulation to sink/bathroom with minimal assist using wwr. Balance: Balance Scales/Tests Used: Sitting: Static/Dynamic;Standing: Static/Dynamic Sitting - Static: Good Sitting - Dynamic: Good - Standing - Static: Fair;With Both Upper Extremity's Support Standing - Dynamic: Fair;With Both Upper Extremity's Support Activities of Daily Living Feeding: Complete [place] (to drink from cup while seated in chair) Oral Facial Hygiene: Activity Does Not Occur Upper Body Dressing: Minimal Assistance (to close gown while standing) Lower Body Dressing: Minimal Assistance (to adjust socks while seated in chair) Splint Issued/Checked: none ACTIVITY TOLERANCE: Patient's activity tolerance: fair. TREATMENT / EDUCATION / INTERVENTIONS: While performing OT, Patient was instructed in:functional mobility training, self-care training, safety awareness/fall precautions , discharge planning, use of call light Presented to patient who demonstrates Fair understanding of instructions given. INFORMED CONSENT TO TREATMENT: Plan of care including recommended therapy, goals and frequency, discussed with patient who understands and agrees to proceed. ASSESSMENT: Functional performance limited due to: limited activities of daily living, decreased functional mobility, decreased functional balance, decreased safety awareness and decreased endurance and activitytolerance. Patient continues to benefit from skilled Occupational Therapy to achieve the following functional goals. Short Term Goals: Goal Formation With patient Patient will perform grooming standing at sink and with modified independence Patient will perform lower extremity dressing at edge of bed and with modified independence Patient will perform supine to/from sit with modified independence Patient will perform bed to chair with modified independence Patient will demonstrate good understanding of safety education Long-Term Goal(s): Patient to discharge to appropriate next level of inpatient care. Plan: Plan: ADL training Functional transfer training Functional balance training Endurance training Bed mobility training Safety awareness If patient is discharged from the facility, this note serves as a discharge summary if further occupational therapy visits did not occur. Refer to filed flowsheet for further details. Following therapy session, patient left in patient bedside chair, with chair alarm on, with call light within reach, with RNVictoria aware. [facility] * Meet Flores PA-C - 02/16/2022 7:35 AM CST Hospitalist Daily Progress Note Name: Kandace Cole Age: [age] year old Room: 837/83 Date Admitted: 02/14/2022 Hospital Course: Kandace Cole is a 72 year old female with past medical history of fibromyalgia, hypertension, hyperlipidemia, CKD stage 4, T2DM and depression presented on 02/14 from OSH for further evaluation of facial bone fractures s/p fall. 24H/S: Patient seen and examined at bedside. She complains of dizziness when she turns her head. No other complaints today. Vitals: BP 105/52 Pulse 68 Temp 97.8 ??F (36.6 ??C) (Oral) Resp 18 Ht 1.651 m (5' 5 ) Wt 70.3 kg (155 lb) SpO2 95% PE: General appearance - alert, well appearing female, and in no acute distress HEENT - dressing over R eyebrow c/d/i Chest - clear to auscultation, no wheezes, rales or rhonchi, symmetric air entry, breathing comfortably on room air Heart - normal rate, regular rhythm, normal S1, S2, no murmurs, rubs, clicks or gallops Abdomen - soft, nontender, nondistended, no masses or organomegaly Musculoskeletal - no joint tenderness, deformity or swelling Skin - normal coloration and turgor, no rashes, no suspicious skin lesions noted Assessment and plan: Syncope and fall Has happened several times this year. States she gets dizzy when she turns her head too quickly. Positive orthostatic BP. TTE without evidence of R to L shunt. TSH wnl. PLAN: Telemetry PT/OT Carotid duplex pending Neuro checks q4h Compression stockings Severe cervical stenosis Hx of cervical intervertebral disc degeneration s/p surgery (2006) Had a referral to follow up with NSGY outpatient. She has had recent worsening of neck pain with decreased ROM of neck, weakness in bilateral hands. PLAN: Ortho spine consult, appreciate their recs MRI C spine pending Pain control, bowel regimen Multiple closed bone facial fractures Seen by Ophthalmogloy and ENT, no acute surgical intervention warranted. PLAN: Continue Augmentin x 7 days No nose blowing x 2 weeks, may use Afrin or other OTC nasal decongestants Erythromycin QID over R eyebrow sutures Ice packs prn x 48 hours Follow up with ophthalmology scheduled on 03/01/22 Will need to follow with ENT in 1 week Other chronic medical conditions T2DM: A1c 5.1, hold home weekly bydureon injections, stop SSI and accu checks as BG has been wnl Hypertension: continue home lasix 10 mg daily, hold lisinopril 20 mg daily and coreg 6.25 mg BID for now and restart as needed (patient hypotensive today) Depression/anxiety: continue home bupropion, citalopram, lexapro, seroquel CKD stage 4 2/2 hypertension and DM: creatinine is stable (baseline 1.5-2.0), continue home calcitriol 0.25 mcg q MWF, follows with outpatient nephrology Hyperlipidemia Ferrell's esophagus: follow up with GI outpatient, most recent EGD in 2019, continue protonix 40 mgdaily Dementia Inpatient Checklist -LDA: PIV -Antibiotic end date: 02/20 -Consults: ENT, Ophtho, Ortho spine -DVT: Heparin sq -Diet: Diabetic -Code: Full -Dispo: Inpatient Meet Flores PA-C Pager Feel free to text page me through [employer] Date of service: 02/16/2022 Attending Physician: Abeba Will DO [facility] * Pan Oneil MD - 02/16/2022 6:28 AM CST [facility] Daily Progress Note Kandace Cole, 72 year old, female : 1950 CSN: [id number] Primary Care Physician: No primary care provider on file. - Admission Date/Time: 02/14/2022 10:07 PM - Hospital Day: 2 Subjective Patient seen and examined this AM on rounds. No acute events overnight, pain controlled. Vitals Temp (24hrs), Av.9 ??F (36.6 ??C), Min:97.8 ??F (36.6 ??C), Max:98.1 ??F (36.7 ??C) BP 105/52 Pulse 68 Temp 97.8 ??F (36.6 ??C) (Oral) Resp 18 Ht 5' 5 (1.651 m) Wt 155 lb (70.3 kg) SpO2 95% Labs Recent Labs Component Name 02/14/22 2355 WBC 9.5 HGB 9.9* HCT 30.1* PLTCOUNT 304 No results for input(s): INR in the last 65179 hours. General: Awake, cooperative, in no acute distress. CV: Regular rate. Pulm: No audible wheezing, no use of accessory muscles Abd: soft, nontender, nondistended Musculoskeletal: ?? Neck: - C-collar/[place] J: absent - Wounds: n/a - Tenderness to palpation: tender to palpation, states tender to palpation at baseline - ROM: full range of motion ?? Back: - Wounds: n/a - Tenderness to palpation: absent - Stepoffs/Deformity: absent ?? Rectal/Perineal: - Voluntary sphincter contracture present - Perianal/Perineal sensation is intact. ?? Bilateral Upper Extremity: - Motor: Shoulder Abduction 5/5 Elbow Extension 5/5 Elbow Flexion 5/5 Wrist Extension 5/5 Wrist Flexion 5/5 Finger Flexion 5/5 Finger Abduction 5/5 - Sensory: intact to light touch distally in C5-T1 distribution - Reflexes: Biceps: Normal BR: Normal ?? Garcia's: +right hand ?? Bilateral Lower Extremity: - Motor: Hip Flexion 5/5 Knee Flexion 5/5 Knee Extension 5/5 Ankle Dorsiflexion 5/5 Great Toe Extension 5/5 Ankle Plantarflexion 5/5 - Sensation: intact to light touch distally in L1-S1 distribution - Clonus: absent - Reflexes: Knee Jerk: Hyporeflexic Achilles: Hyporeflexic Babinski: normal Clonus: x1 beat in left foot Assessment/Plan 72 year old female presenting 02/14 s/p fall with reported history of cervical stenosis. Orthopedicsurgery consulted d/t reported history of cervical stenosis with concern for myelopathy. Grossly patient does not demonstrate weakness of bilateral upper nor lower extremities. Symptoms of balance difficulties and loss of fine motor skills may be attributable to myelopathic symptoms, though unable to determine without further workup. Patient describes symptoms of dizziness that are largely positional. Uncertain etiology for recurrent falls at this time with mixed picture. 1. No acute surgical intervention 2. Recommend neurology consult for dizziness 3. Appropriate imaging study to evaluate for cervical myelopathy is MRI cervical spine without contrast, ok to obtain on outpatient basis 4. Please reach out to orthopedic spine surgery with any questions or concerns Pan Oneil MD 02/16/2022 6:29 AM [facility] * Tyson Amado RN - 02/16/2022 2:07 AM CST Problem: Fall Risk Goal: Fall risk and fall related injury risk are minimized (interventions related to the fall risk can be found in the flowsheet documentation) Outcome: Progressing [facility] * Meet Flores PA-C - 02/15/2022 9:32 AM CST Hospitalist Daily Progress Note Name: Kandace Cole Age: [age] year old [facility] Date Admitted: 02/14/2022 Hospital Course: Kandace Cole is a 72 year old female with past medical history of fibromyalgia, hypertension, hyperlipidemia, CKD stage 4, T2DM and depression presented on 02/14 from OSH for further evaluation of facial bone fractures s/p fall. 24H/S: Patient seen and examined at bedside. She states she feels achey all over. Also with cough and SOB but states these are baseline for her. Denies chest pain, nausea, vomiting, abdominal pain, fevers, chills, dysuria. Last BM was yesterday. I explained that she will need to follow up outpatient for facial fractures but that NSGY will be seeing her today. Vitals: BP 120/85 Pulse 75 Temp 97.8 ??F (36.6 ??C) (Temporal) Resp 11 Ht 1.651 m (5' 5 ) Wt 70.3 kg (155 lb) SpO2 95% PE: General appearance - alert, well appearing female, and in no distress HEENT - dressing over R eyebrow c/d/i Chest - clear to auscultation, no wheezes, rales or rhonchi, symmetric air entry, breathing comfortably on room air Heart - normal rate, regular rhythm, normal S1, S2, no murmurs, rubs, clicks or gallops Abdomen - soft, nontender, nondistended, no masses or organomegaly Musculoskeletal - no joint tenderness, deformity or swelling Skin - normal coloration and turgor, no rashes, no suspicious skin lesions noted Assessment and plan: Syncope and fall Has happened several times this year. States she gets dizzy when she turns her head too quickly. Positive orthostatic BP. PLAN: Telemetry Orthostatics VS pending PT/OT TTE and carotid duplex pending Neuro checks q4h TSH pending Compression stockings Severe cervical stenosis Hx of cervical intervertebral disc degeneration s/p surgery (2006) Had a referral to follow up with NSGY outpatient. She has had recent worsening of neck pain with decreased ROM of neck, weakness in bilateral hands. PLAN: Ortho spine consult, appreciate their recs Pain control, bowel regimen Multiple closed bone facial fractures Seen by Ophthalmogloy and ENT, no acute surgical intervention warranted. PLAN: Continue Augmentin x 7 days No nose blowing x 2 weeks, may use Afrin or other OTC nasal decongestants Erythromycin QID over R eyebrow sutures Ice packs prn x 48 hours Follow up with ophthalmology scheduled on 03/01/22 Will need to follow with ENT in 1 week Other chronic medical conditions T2DM: A1c pending, hold home weekly bydureon injections, continue SSI and accu checks Hypertension: continue home lasix 10 mg daily, hold lisinopril 20 mg daily and coreg 6.25 mg BID for now and restart as needed (patient hypotensive today) Depression/anxiety: continue home bupropion, citalopram, lexapro, seroquel CKD stage 4 2/2 hypertension and DM: creatinine is stable (baseline 1.5-2.0), start home calcitriol0.25 mcg q MWF, follows with outpatient nephrology Hyperlipidemia Ferrell's esophagus: follow up with GI outpatient, most recent EGD in 2019, continue protonix 40 mgdaily Dementia Inpatient Checklist -LDA: PIV -Antibiotic end date: 02/20 -Consults: ENT, Ophtho, Ortho spine -DVT: Heparin sq -Diet: Diabetic -Code: Full -Dispo: Inpatient Meet Flores PA-C Pager Feel free to text page me through [employer] Date of service: 02/15/2022 Attending Physician: Abeba Will DO [facility] documented in this encounter H&P Notes * Dagoberto Ordoñez MD - 02/15/2022 3:56 AM CST Images from the original note were not included. Name: Kandace Cole Admit Date and Time: 02/14/2022 10:07 PM Chief Complaint: Transferred from OSH ER for ENT and of the [place] allergy consultation in context of facial bone fractures after a fall History of Present Illness: Kandace Cole is a 72 year old female with history of fibromyalgia's, hypertension, hyperlipidemia,ckd, DM and depression is presenting to the ED s/p fall. Pt states that she was walking after her mammogram, felt lightheaded and fell down. The fall was unwitnessed. Pt states that she was awake while falling and could see the asphalt of the parking before hitting her head to the ground. Next thing she remembers is that people around her were helping her to get up. States she has been following frequently for the last 6 months. She has severe spinal stenosis and had a cadaver graft placed into her spine.In August she was told that there is is some spinal leak in the her C-spine. She gets dizzy any time she turns her head fast in either direction which causes her to fall. She never had loss of consciousness so before. She is waiting for neurosurgical evaluation/outpatient consult in May 2021 but thinks she needs to see a neurosurgeon MARLEE. Did not have chest pain, palpitations before or after the fall. Patient t had a 2-3 cm laceration over the right eyebrow. Pt was seen to an OSH, where six sutures were placed for her laceration. OSH did imaging, which shows subcutaneous emphysema and fractures involving the right zygomaticomaxillary complex, right zygomatic arch, anterior & lateral pérez ofthe right maxillary sinus, and right medial orbital wall. Reportedly imaging also confirmed severe c ervical spine stenosis. Pt was transferred here optho and ENT consult. ROS Positives are in bold. GEN: Change in weight, appetite, fever, chills, fatigue, night sweats Eye/Ear/Nose: Visual changes, rhinitis, epistaxis Throat: Sore throat, dysphagia RESP: Cough, sputum, shortness of breath CARDIAC: Chest pain, palpitations, orthopnea, edema GI: Nausea, vomiting, abdominal pain, diarrhea, constipation : Urinary urgency, dysuria, incontinence Male/Female Sores, discharge M/S: Arthralgias, myalgias Heme: Bleeding, bruising SKIN: Rash, pruritis, erythema NEURO: Headache, dizziness, lightheadedness Past Medical History: Past Medical History: Diagnosis Date ??? ANEMIA ??? Diabetes ??? Disease of Esophagus ??? Fibromyalgia ??? Glaucoma ??? HTN (HYPERTENSION) ??? Macular Degeneration ??? Osteoarthritis ??? Raynaud Disease ??? Ulnar Neuropathy Surgical History: Past Surgical History: Procedure Laterality Date ??? Carpal Tunnel Release ??? Cervical Laminectomy ??? Hysterectomy ??? NASAL POLYPECTOMY ??? Rotator Cuff Repair ??? ULNAR NERVE TRANSPOSITION Social History: Social History Socioeconomic History ??? Marital status: Tobacco Use ??? Smoking status: Never Substance and Sexual Activity ??? Alcohol use: No Family History: Not contributing Allergies: Allergies Allergen Reactions ??? Latex ??? Cyclobenzaprine ??? Fluoxetine ??? Naproxen ??? Sulfamethoxazole W-Trimethoprim ??? Eggs ??? Other demeral ??? Urecholine [Bethanechol Chloride] Home Medications: Current Medications albuterol (5 MG/ML) 0.5% 48 mg in nacl 0.9 % Amitriptyline HCl (ELAVIL PO) Citalopram Hydrobromide (CELEXA PO) diazepam (VALIUM) 2 MG tablet Take 1 Tab by mouth. TID diclofenac sodium (VOLTAREN) 50 MG tablet Take 1 Tab by mouth 2 times daily. LOSARTAN POTASSIUM PO METFORMIN HCL PO OMEPRAZOLE PO Objective: BP 101/48 Pulse 80 Temp 98.2 ??F (36.8 ??C) (Temporal) Resp 16 Ht 1.651 m (5' 5 ) Wt 70.3kg (155 lb) SpO2 98% Estimated body mass index is 25.79 kg/m?? as calculated from the following: Height as of this encounter: 1.651 m (5' 5 ). Weight as of this encounter: 70.3 kg (155 lb). Exam GEN in mild distress due to headache/face pain HEENT bilateral bruise around the eye. Sutured laceration right above the right eyebrow. NECK Supple, no lymphadenopathy CHEST CTA&P , normal diaphragmatic movement. HEART RRR, Normal S1, S2. No murmurs/rubs/gallops. No radio-radial or radio- femoral delay. ABD No prominent veins, bruises, or Obvious hernias. Soft, NT, ND, No visceromegaly or Ascites appreciated, +BS. BACK No CVA tenderness. No scoliosis. EXT No clubbing, cyanosis or edema. Extremities warm to touch. NEURO Alert, oriented, and appropriately interactive. Moving all extremities SKIN No Rash, Flushing LABS: Labs reviewed CBC: Recent Labs Lab Units 02/14/22 2355 WBC 10??3/uL 9.5 RBC 10??6/uL 3.35* HGB g/dL 9.9* HCT % 30.1* BMP: Recent Labs Lab Units 02/14/22 2355 NA mmol/L 132* CL mmol/L 101 CO2 mmol/L 22 BUN mg/dL 33* CREATININE mg/dL 1.74* CALCIUM mg/dL 9.1 Magnesium: No results for input(s): MG in the last 168 hours. Phosphorus: No results for input(s): PHOS in the last 168 hours. Coagulation: No results for input(s): PT, INR, APTT in the last 168 hours. Endocrine: Recent Labs Lab Units 02/14/22 2355 TSH uIU/mL 0.749 LFTs: Recent Labs Lab Units 02/14/22 2355 AST U/L 16 ALT U/L 13 TBILI mg/dL 0.5 ALB g/dL 3.4 Recent Labs Component Name 02/14/22 5585 TROPONINI 0.027 ECG: My personal interpretation of the EKG: Normal rate and rhythm. No ST-T changes Imaging reviewed CT facial bones at OSH: As per charting patient sustained fractures involving the right zygomaticomaxillary complex, right zygomatic arch, anterior& lateral pérez of the right maxillary sinus, and right medial orbital wall. Assessment/Plan: Active Problems: Syncope and collapse Trauma Injury of head, initial encounter Fall, initial encounter Multiple closed fractures of facial bone, initial encounter ([facility]) Plan -admit to medicine floor for further management -tele monitoring -neuro checks q.4 hours -2D echo, carotid Doppler ultrasound. -discuss severe spinal stenosis issue with Neurosurgery/spinal surgery for possible intervention -gentle IV hydrate -appreciate ophthalmology and ENT recommendations - No nose blowing x2 weeks, patient may use Afrin or other OTC nasal decongestants as directed - Broad spectrum antibiotics x7 days per primary team ( Augmentin) - Erythromycin ointment QID over right eyebrow sutures - Pain control - Ice packs may be applied to both eyes x48 hours as tolerated - Call ophtholmology service immediately with any new restriction of eye motility, diplopia, intractable nausea/vomiting, bradycardia, or decreased vision - Has follow up scheduled with her mill house supervisor on 03/01/22 - outpatient follow-up with ENT in 1 week Chronic Issues/Management: # diabetes mellitus : Will keep on Accu-Cheks q.a.c. and HS with low-dose SSI coverage. HbA1c # hypertension : On Coreg +lisinopril. # depresion/anxietys: On bupropion. citalopram, Lexapro, Seroquel # dementia : # CKD : Stable-follows with open nephrology. # mild hyperkalemia: 2/2 above -continue with home medications except lisinopril at this time. DVT PPx: SCDs GI Prophylaxis: Code Status: Full code Diet: Diabetic consistent carb This patient was seen by me around 4 am on 02/15/2022 and total time spent on this admission including review of outside records was about 60 minutes. NOTE: Above Assessment, and Plan is based on my first encounter with the patient at the time of night admission and the Data available at hand at that time. Pt is/will be Endorsed to day hospitalist team. Pt and current Data will be re evaluated in AM by day team to update management plan as neededand will be re evaluated daily during the hospital stay by the team for any new information/Historical points/data and will be managed accordingly. Dagoberto Ordoñez MD 02/15/2022 3:57 AM [facility] documented in this encounter Consult Notes * Angelina Rabago - 02/16/2022 4:52 PM CSTAssociated Order(s): IP CONSULT TO PUBLICATION DIRECTOR PT/OT are recommending SNF at d/c. The patient refused but is agreeable to [facility]. Patient reports that she lives with her grandson that is able to help her at d/c. SW updated CM and primary team via [email or web address] chat. Angelina Allenan, DIRECTOR OF GRANTS 02/16/[phone] [facility] * Pan Oneil MD - 02/15/2022 5:27 PM CST [facility] Consultation Note Kandace Cole, 72 year old, female : 1950 CSN: [id number] Primary Care Physician: No primary care provider on file. Chief Complaint Chief Complaint Patient presents with ??? Fall BIBEMS transfer from [place], fall today with zygomatic fracture, -loc, - thinners. Denies vision changes ??? Facial Fracture Admission Date/Time: 02/14/2022 10:07 PM Today's Date/Time: 02/15/2022 5:27 PM Time at Bedside: 4:30pm HPI Consulting Service: ED [facility] consulted for evaluation/management of: history of cervical stenosis 02/15 status post fall. Kandace Cole is a 72 year old female who as transfer from [facility] after fall on . CT facialbones at OSH demonstrated multiple facial bone fractures and orbital wall fracture. She states over the past 6 months she has progressively worsening issues with balance and neck pain. She also states increasing difficulties with fine motor skills such as tying shoe laces, buttoningbuttons, and has been dropping objects such as silverware. She states she feels unsafe walking because of her unsteadiness. Denies urinary incontinence. States she has had persistent diarrhea for many weeks. She states she follows with a neurosurgery PA and has an appointment in May but did not want to wait until then for evaluation. Patient reports dizziness, especially when lying down and turning head from one side to the other. Patient undergoing syncopal workup including echocardiogram and doppler ultrasound. - Other injuries include: fractures of right zygomaticomaxillary complex, right zygomatic arch, anterior &??lateral pérez of the right maxillary sinus, and right medial orbital wall - PMH includes: fibromyalgia, htn, HLD, CKD, DM - PSH is significant for: reports remote history of surgery for cervical stenosis in 2006 and for her low back in . Vitals Blood pressure 120/45, pulse 82, temperature 97.9 ??F (36.6 ??C), temperature source Oral, resp. rate 18, height 5' 5 (1.651 m), weight 155 lb (70.3 kg), SpO2 98 %. Labs Lab results smartLinks are not currently available Lab results smartLinks are not currently available PMHx Past Medical History: Diagnosis Date ??? ANEMIA ??? Diabetes ??? Disease of Esophagus ??? Fibromyalgia ??? Glaucoma ??? HTN (HYPERTENSION) ??? Macular Degeneration ??? Osteoarthritis ??? Raynaud Disease ??? Ulnar Neuropathy PSHx Past Surgical History: Procedure Laterality Date ??? Carpal Tunnel Release ??? Cervical Laminectomy ??? Hysterectomy ??? NASAL POLYPECTOMY ??? Rotator Cuff Repair ??? ULNAR NERVE TRANSPOSITION Social Hx Social History Tobacco Use ??? Smoking status: Never ??? Smokeless tobacco: Not on file Substance Use Topics ??? Alcohol use: No Family Hx family history is not on file. Allergies Allergies Allergen Reactions ??? Latex ??? Cyclobenzaprine ??? Fluoxetine ??? Naproxen ??? Sulfamethoxazole W-Trimethoprim ??? Eggs ??? Other demeral ??? Urecholine [Bethanechol Chloride] Medications Current Facility-Administered Medications Medication ??? 0.9% NaCl injection 3 mL And ??? 0.9% NaCl injection 1-10 mL ??? acetaminophen (Tylenol) tablet 650 mg ??? artificial tears ophthalmic solution 1 drop ??? benzonatate (Tessalon) capsule 100 mg ??? buPROPion XL 24hr (Wellbutrin-XL) tablet 150 mg ??? [START ON 02/16/2022] calcitriol (Rocaltrol) capsule 0.25 mcg ??? citalopram (CeleXA) tablet 20 mg ??? dextrose 10 % IV bolus Or ??? dextrose 10 % IV bolus ??? escitalopram (Lexapro) tablet 20 mg ??? furosemide (Lasix) tablet 10 mg ??? glucagon (Glucagen) injection 1 mg ??? glucose (Diabetic Use) (Dex4 Glucose) oral liquid ??? glucose (Diabetic Use) oral gel ??? glucose chew tablet 4 tablet ??? heparin injection 5,000 Units ??? insulin lispro (HumaLOG;ADMelog) 100 UNIT/ML pen 0-6 Units ??? ondansetron (disintegrating) (Zofran ODT) tablet 4 mg Or ??? ondansetron (Zofran) injection 4 mg ??? oxyCODONE (immediate release) (Roxicodone) tablet 5 mg ??? pantoprazole EC (Protonix) tablet 40 mg ??? perflutren lipid microsphere (Definity) injection 0.5 mL ??? QUEtiapine (SEROquel) tablet 200 mg ??? saline nasal spray (Bent; Baby Banks) 0.65 % nasal spray 1 spray Review of Systems A 12 point review of systems was performed and was negative except for: what was mentioned in the HPI Physical Exam General: Awake, cooperative, in no acute distress. CV: Regular rate. Pulm: No audible wheezing, no use of accessory muscles Abd: soft, nontender, nondistended Musculoskeletal: Neck: - C-collar/Asotin J: absent - Wounds: n/a - Tenderness to palpation: tender to palpation, states tender to palpation at baseline - ROM: full range of motion Back: - Wounds: n/a - Tenderness to palpation: absent - Stepoffs/Deformity: absent Rectal/Perineal: - Voluntary sphincter contracture present - Perianal/Perineal sensation is intact. Bilateral Upper Extremity: - Motor: Shoulder Abduction 5/5 Elbow Extension 5/5 Elbow Flexion 5/5 Wrist Extension 5/5 Wrist Flexion 5/5 Finger Flexion 5/5 Finger Abduction 5/5 - Sensory: intact to light touch distally in C5-T1 distribution - Reflexes: Biceps: Normal BR: Normal Bilateral Lower Extremity: - Motor: Hip Flexion 5/5 Knee Flexion 5/5 Knee Extension 5/5 Ankle Dorsiflexion 5/5 Great Toe Extension 5/5 Ankle Plantarflexion 5/5 - Sensation: intact to light touch distally in L1-S1 distribution - Clonus: absent - Reflexes: Knee Jerk: Hyporeflexic Achilles: Hyporeflexic Babinski: normal Imaging - No spine imaging available Assessment/Plan: 72 year old female presenting 02/14 s/p fall with reported history of cervical stenosis. Orthopedicsurgery consulted d/t reported history of cervical stenosis with concern for myelopathy. Grossly patient does not demonstrate weakness of bilateral upper nor lower extremities. Symptoms of balance difficulties and loss of fine motor skills may be attributable to myelopathic symptoms, though unable to determine without further workup. 1. Recommendations pending dedicated spine imaging 2. Appropriate imaging study to evaluate for cervical myelopathy is MRI cervical spine without contrast 3. Please reach out to orthopedic spine surgery with any questions or concerns Pan Oneil MD 02/15/2022 5:27 PM Follow up Contact Information: [facility] office contact information: [facility] at [address], [place] [address] Second Floor [place], [place] [id number] [address] [place] [address] Visit our website at [email or web address] for information about our practice and an interactive health encyclopedia. Please visit [email or web address] to access your health record, ask questions, request medication refills, and request appointments for non-urgent needs after you have configured your [employer] account. If you do not currently have access, please contact one of our staff members or call [phone]. For after hour emergencies, please call and press 0 for the paper bag press operator in order to page the orthopedic resident button breaker operator. [facility] Associated attestation - Deon Taylor MD - 02/16/2022 8:16 AM MANAGER URGENT CARE I have seen and evaluated the patient and agree with the resident's assessment and plan as stated above. I have independently reviewed all imaging studies. 72F with signs and symptoms of potential myelopathy. Patient reports she had an MRI done at [place] prior to transfer. Will attempt to obtain MRI to review. Otherwise will need follow up and likely elective cervical decompression and fusion. Deon Taylor MD * Makenzie Cisneros DO - 02/15/2022 12:45 AM CST Images from the original note were not included. [facility] Ophthalmology Consult Note 02/15/2022 at 1:21 AM Patient: Kandace Cole Age: [id number] year old Date of : 1950 Date of Admission: 02/14/2022 Chief Complaint Patient presents with ??? Fall BIBEMS transfer from [place], fall today with zygomatic fracture, -loc, - thinners. Denies vision changes ??? Facial Fracture HPI: Kandace Cole is a 72 year old female with a history of T2DM, CKD, fibromyalgia, and Ferrell's esophagus who presents s/p ground level fall which occurred on 02/14/22. States she was in the parking lot of the [facility] cancer center when she became dizzy and fell, landing on the asphalt. Reports that she has had issues with dizziness due to neck abnormalities, and reports frequent head turning in a test she was completing there which she believes led to her fall. She was evaluated in the [facility] ED and found to have fractures of the right zygomaticomaxillary complex, right zygomatic arch, anterior & lateral pérez of the right maxillary sinus, and right medial orbital wall for which she was transferred to [facility] for further evaluation. Patient reports a headache and mild pain in right gaze. States that her vision in the right eye has always been worse in the left eye,but she has no acute changes. Notes that she has been seeing a couple of floaters intermittently inher right eye over the last couple of weeks. They occur in the temporal aspect of her visual field.States there is one dark spot and one spot which looks like a spider web. She has an upcoming appointment with her mill house supervisor on 03/01/22 who is following her for glaucoma & macular degeneration. No flashes or curtains. No diplopia or N/V. Ophthalmic ROS: Negative beyond pertinent positives and negatives in HPI. Past Ocular History: - CE/IOL OU ~2007 - Glaucoma, unspecified type, on a blue top drop BID OU - Macular degeneration, takes AREDS Past Medical History: Diagnosis Date ??? ANEMIA ??? Diabetes ??? Disease of Esophagus ??? Fibromyalgia ??? Glaucoma ??? HTN (HYPERTENSION) ??? Macular Degeneration ??? Osteoarthritis ??? Raynaud Disease ??? Ulnar Neuropathy No family history on file. No current facility-administered medications for this encounter. Current Outpatient Medications Medication Sig Dispense Refill ??? albuterol (5 MG/ML) 0.5% 48 mg in nacl 0.9 % ??? Amitriptyline HCl (ELAVIL PO) ??? Citalopram Hydrobromide (CELEXA PO) ??? diazepam (VALIUM) 2 MG tablet Take 1 Tab by mouth. TID 90 Tab 2 ??? diclofenac sodium (VOLTAREN) 50 MG tablet Take 1 Tab by mouth 2 times daily. 60 Tab 4 ??? LOSARTAN POTASSIUM PO ??? METFORMIN HCL PO ??? OMEPRAZOLE PO Allergies Allergen Reactions ??? Latex ??? Cyclobenzaprine ??? Fluoxetine ??? Naproxen ??? Sulfamethoxazole W-Trimethoprim ??? Eggs ??? Other demeral ??? Urecholine [Bethanechol Chloride] Social History Tobacco Use ??? Smoking status: Never ??? Smokeless tobacco: Not on file Substance Use Topics ??? Alcohol use: No Objective: Base Eye Exam Visual Acuity (Snellen - Linear) Right Left Near cc 20/70 PH 20/30-2 20/20-1 with +2.00 call bag readers Tonometry (Tonopen, 12:10 AM) Right Left Pressure 15 15 Pupils Pupils APD Right PERRL None Left PERRL None Visual Bingham (Counting fingers) Left Right Full Full Extraocular Movement Right Left Full Full no diplopia during motility testing Dilation Both eyes: 1.0% Mydriacyl, 2.5% Fabricio Synephrine @ 12:[address] facial bones 02/14/22 at [facility] personally reviewed. There is a fracture of the rightlateral maxillary wall and fractures of the right zygomatic arch. Right medial orbital wall fracture suspected per radiology report, but not readily visible on my review. The left maxillary sinus is opacified. The globes are round, formed, and symmetric. Able to trace extraocular muscles to their in sertion. Slit Lamp and Fundus Exam Slit Lamp Exam Right Left Lids/Lashes Repaired laceration just inferior to the temporal aspect of the eyebrow, mild UL temporal edema Normal Conjunctiva/Sclera White and quiet White and quiet Cornea 1+ PEE inferiorly 1+ PEE inferiorly Anterior Chamber Deep and quiet Deep and quiet Iris Round and pharm dilated Round and pharm dilated Lens PCIOL, anterior capsular phimosis PCIOL, trace PCO Vitreous Syneresis, no Bibi's sign Syneresis, no [facility]'s sign Fundus Exam Right Left Disc Cupping Cupping C/D Ratio 0.7 0.75 Macula Central chorioretinal scar, cannot rule out subclinical edema Central chorioretinal scar, flat Vessels Normal Normal Periphery Pigmentary changes, no tears/detachments Pigmentary changes, no tears/detachments Relevant Diagnostic Tests or Imaging: External photos of both eyes: External photo of the right eye: CT facial bones coronal section bone window: CT facial bones axial section bone window: Assessment and Plan: Kandace Cole is a 72 year old female Suspected medial wall fracture of right orbit without clinical evidence of entrapment - Mechanism and date of injury: fall onto asphalt 02/14/22 - [facility] 20/30 OD, 20/20 OS (broke glasses during fall), IOP physiologic OU - Motility full, so forced ductions not performed - HR stable, motility testing did not induce nausea/vomiting or bradycardia - CT facial bones as above. Globes are round and symmetric. Can trace extraocular muscles back to their insertion. - Mild periorbital swelling with eyebrow laceration which was repaired at the [facility]. No retrobulbar hemorrhage. No proptosis, mostly periorbital swelling and emphysema. Able to open palpebral fissue without assistance. - No evidence of ruptured globe. Pupils round, reactive and symmetric. A/C deep and well formed. Globe well formed on imaging. - DFE without tears or detachments Right eyebrow laceration, s/p repair - Repaired at outside ED, see photo aove History of glaucoma, unspecified type - On a blue top IOP drop BID OU - IOP 15 OU today - DFE with cupped optic nerves OU History of macular degeneration - Per patient report, taking AREDS vitamins - DFE with chorioretinal scarring in the macula OU with possible subclinical edema OD - Follows with mill house supervisor in [place] regularly, has appt 03/01/22 T2DM without retinopathy - Last Hgb A1c ~5.8 per patient - No retinopathy seen on DFE Pseudophakia OU Recommendations: - No nose blowing x2 weeks, patient may use Afrin or other OTC nasal decongestants as directed - Broad spectrum antibiotics x7 days per primary team (recommend Keflex or Augmentin) - Erythromycin ointment QID over right eyebrow sutures - Pain control per primary team - Ice packs may be applied to both eyes x48 hours as tolerated - Call immediately with any new restriction of eye motility, diplopia, intractable nausea/vomiting,bradycardia, or decreased vision - Has follow up scheduled with her mill house supervisor on 03/01/22, will provide our contact informationin patient discharge instructions if needed. Makenzie Cisneros, Ophthalmology 02/15/2022 1:21 AM [facility] Associated attestation - Cesar Adames MD - 02/18/2022 8:17 PM MANAGER URGENT CARE I have reviewed the resident note, the documented assessment and plan, and all associated tests, labs, and imaging. I have not personally examined the patient with the resident. Cesar Adames MD, PhD Attending, Cornea and Anterior Segment Service Date of Service: 02/15/2022 * Deon Perez MD - 02/15/2022 12:12 AM CST Images from the original note were not included. Otolaryngology-Head and Neck Surgery Consultation Note PATIENT INFORMATION Kandace Cole 72 year old female Today's Date: 02/15/2022 CC: Chief Complaint Patient presents with ??? Fall ??? Facial Fracture Reason for consult: facial trauma Consulting Service: ED HPI/ROS HPI: Kandace Cole is a 72 year old female with a PMH significant for HTN, CKD4, DM, glaucoma seenin consultation for facial fractures. Patient presented to [facility] earlier in the evening after a fall. Injuries seen on CT included right zygomaticomaxillary complex, right zygomatic arch, anterior & lateral pérez of the right maxillary sinus, and right medial orbital wall. Transferred here for further workup. She had laceration of right brow repaired at OSH ED She denies trismus or discomfort with mouth opening. ENT history: Has long standing stable nasal septal perforation since about 2007 she states. Minimally bothersome. Her father has similar perforation Focused Review of Systems: Diplopia: Negative Blurry vision: Negative Epistaxis: Negative Malocclusion: Negative Loose or broken teeth: Negative PMH/PSH/SH/FH/Meds PAST MEDICAL HISTORY Past Medical History: Diagnosis Date ??? ANEMIA ??? Diabetes ??? Disease of Esophagus ??? Fibromyalgia ??? Glaucoma ??? HTN (HYPERTENSION) ??? Macular Degeneration ??? Osteoarthritis ??? Raynaud Disease ??? Ulnar Neuropathy PAST SURGICAL HISTORY Past Surgical History: Procedure Laterality Date ??? Carpal Tunnel Release ??? Cervical Laminectomy ??? Hysterectomy ??? NASAL POLYPECTOMY ??? Rotator Cuff Repair ??? ULNAR NERVE TRANSPOSITION SOCIAL HISTORY: Social History Tobacco Use ??? Smoking status: Never Substance Use Topics ??? Alcohol use: No FAMILY HISTORY Non-contributory. MEDICATIONS No current facility-administered medications on file prior to encounter. Current Outpatient Medications on File Prior to Encounter Medication Sig Dispense Refill ??? albuterol (5 MG/ML) 0.5% 48 mg in nacl 0.9 % ??? Amitriptyline HCl (ELAVIL PO) ??? Citalopram Hydrobromide (CELEXA PO) ??? diazepam (VALIUM) 2 MG tablet Take 1 Tab by mouth. TID 90 Tab 2 ??? diclofenac sodium (VOLTAREN) 50 MG tablet Take 1 Tab by mouth 2 times daily. 60 Tab 4 ??? LOSARTAN POTASSIUM PO ??? METFORMIN HCL PO ??? OMEPRAZOLE PO Allergies: Allergies Allergen Reactions ??? Latex ??? Cyclobenzaprine ??? Fluoxetine ??? Naproxen ??? Sulfamethoxazole W-Trimethoprim ??? Eggs ??? Other demeral ??? Urecholine [Bethanechol Chloride] Physical Exam Vitals: BP 139/75 Temp 97.8 ??F (36.6 ??C) (Temporal) Ht 5' 5 (1.651 m) Wt 155 lb (70.3 kg) SpO2 100% BMI 25.79 kg/m?? PHYSICAL EXAM General appearance: alert, cooperative, no distress HEENT: Skeletal assessment: -Bony stepoffs were not appreciated -Tenderness to palpation was elicited along right maxilla -The remainder of the cranial skeleton was without clinically palpable irregularity Soft tissue assessment: -Scalp/forehead: Right eyebrow laceration s/p repair with permanent suture -Eyes: Lids and lashes intact, EOMI -Ears: External pinnae atraumatic with normal landmarks. Tympanic membranes intact bilaterally, with aerated middle ear space -Nose: Atraumatic, moist mucous membranes, septum midline, no evidence of septal hematoma -Cheek: Right cheek tender to palpation with some ecchymosis -Lips: Atraumatic with no abrasions or lacerations -Chin: Atraumatic with no abrasions or lacerations -Neck: Atraumatic with no abrasions or lacerations Neurologic assessment: -EOMI without evidence of entrapment -CN V1-3: Right: intact to light touch. Left: intact to light touch -CN VII: intact Oral assessment: -Hygiene: fair, several missing teeth including molars -Occlusal status: not currently wearing dentures but upper incisors lie anterior to lower incisors which is stable -Intraoral lesions were not found Lungs: unlabored breathing Heart: Regular rate and rhythm, warm and well perfused Labs/Imaging/Micro/Pathology Recent Labs: Recent Labs Component Name 02/14/22 2355 WBC 9.5 RBC 3.35* HGB 9.9* HCT 30.1* PLTCOUNT 304 No results for input(s): SODIUM, POTASSIUM, CHLORIDE, CO2, BUN, CREATININE, GLUCOSE, CALCIUM in thelast [id number] hours. Recent Imaging/Studies: CT facial bones personally reviewed on CD with non-displaced right zygomatic arch and bhavin-lateral maxillary sinus No obvious fracture of orbital pérez ASSESSMENT & PLAN Kandace Cole is a 72 year old female seen in consultation for for facial fractures. On exam, patient with right cheek tenderness and right brow laceration that was repaired at OSH. Stable occlusionand vision. She of note has a stable nasal septal perforation. CT on personal review shows fractures of right zygomatic arch and anterolateral maxillary sinus which are non-displaced. ?? No acute ENT intervention at this time. ?? Wound(s): Recommend applying bacitracin to laceration(s), abrasion(s), wound(s) 3 times per day for 5 days and switch to vaseline ?? Agree with ophtho recommendations for abx ?? Diet: soft diet recommended ?? Nose blowing is NOT okay ?? Follow up: Dr. Villafuerte in 1 week ?? Patient will need sutures removed ?? Will arrange for outpatient follow up in our clinic in the [facility] ([address] [place] [address]; [phone]). ?? Please page ENT with questions/concerns. Deon Perez MD Otolaryngology - Head and Neck Surgery 02/15/2022 [facility] Associated attestation - Brandyn Alfaro MD - 02/15/2022 12:09 PM MANAGER URGENT CARE Attending Physician Supervisory Note I personally interviewed and examined the patient and agree with the Resident above. In addition I note: Right ZMC fracture, non-displaced, EOMI intact. Anticipate full recovery without intervention. Precautions and followe up as above. Brandyn Alfaro MD documented in this encounter ED Notes * Que Mercer RN - 02/15/2022 4:47 PM CST Report called to RN of 837. All questions answered at this time. Pt safe to transfer care at this time. [facility] * Que Mercer RN - 02/15/2022 1:24 PM CST Notified Med 3 team of positive orthostatic BP [facility] * Cadence Veliz RN - 02/15/2022 11:46 AM CST Pt returns from ECHO, ENT team at bedside at this time. No s/s acute distress noted. [facility] * Cadence Veliz RN - 02/15/2022 10:17 AM CST Pt BP noted to be 85 45 with a map of 63. 500mL NS bolus ordered [facility] * Tere Thompson RN - 02/15/2022 4:30 AM CST Pt resting comfortably on ED stretcher with equal and bilateral chest rise and fall. VSS. Denies needs at this time [facility] * Unruly Witt MD - 02/15/2022 3:[address] [facility] Emergency Department Clinical Course Patient Kandace Cole 72 year old female presenting for fall after syncopal episode. The pt was found to have multiple facial fractures and a medial orbital wall fracture at an OSH and she was sent to [facility] for further workup. ENT and ophthalmology were consulted. Pt was admitted to medicine for a syncopal workup. Unruly Witt MD Emergency Medicine, PGY3 [facility] * Teer Thompson RN - 02/15/2022 2:00 AM CST Purwick placed on pt [facility] * Tere Thompson RN - 02/15/2022 12:15 AM CST Pt resting comfortably in ED stretcher with equal and bilateral chest rise and fall. Denies needs at this time. VSS. [facility] * Justo Sparrow MD - 02/15/2022 12:06 AM CST Resident Attestation I have performed an independent history and physical examination and discussed the patient's management with the resident. I confirm the residents findings, assessment and plan of care except where revised on this note. Interval History: Kandace Cole 72 year old female with a past medical history that includes fibromyalgia's, hypertension, hyperlipidemia, and depression is presenting to the ED s/p fall. Pt states that she was walking after her mammogram, felt lightheaded and fell down. The fall was unwitnessed. Pt denies any LOC, but had a 2-3 cm laceration over the right eyebrow. Pt was seen to an OSH, where six sutures were placed for her laceration. At OSH, pt reported that she has had a long history of benign lightheadedness. Pt had a cadaver graft placed into her spine. Pt has severe stenosis causing the lightheadedness but has not had any previous significant falls. OSH did imaging, which shows subc utaneous emphysema and concern for fracture as well as confirm severe C-spine stenosis. Pt was transferred here due to change in visual acuity, which was 70/20 and 50/20 at OSH and to be consulted onby optho. Patient has multiple facial fractures that the outside facility spoke with ENT and it wasfelt they could be handled as an outpatient basis. The transfer call note indicates fractures are Transfer Center Call Summary ?? Called by transfer center regarding Kandace Cole, a 72 year old female??currently in the [facility] ED. Per [facility] care team, the patient sustained a ground level fall earlier today and hit her face on the curb. She sustained fractures involving the right zygomaticomaxillary complex, right zy gomatic arch, anterior & lateral pérez of the right maxillary sinus, and right medial orbital wall. ROS: Onset- See above Timing- See above Location- See above Quality- See above Severity- See above Context- see above Aassociated sxs- See above Exacerbating- See above Alleviating- See above ROS: Unable to obtain No All symptoms reviewed and negative except as marked Constitutional- no change in activity Eyes- Visual changes Ent- no face or neck pain Cv- no chest pain, Resp- no shortness of breath Gi- no abdominal pain, nausea, vomiting or diarrhea Gu- no dysuria Ms- no extremity swelling, Skin- laceration, no rash Neuro- lightheaded, no weakness or headache Psych- Hemat/lymph- no abnormal bruising Endo- Immun/allergy- no seasonal allergies Past Medical History: Diagnosis Date ??? ANEMIA ??? Diabetes ??? Disease of Esophagus ??? Fibromyalgia ??? Glaucoma ??? HTN (HYPERTENSION) ??? Macular Degeneration ??? Osteoarthritis ??? Raynaud Disease ??? Ulnar Neuropathy Past Surgical History: Procedure Laterality Date ??? Carpal Tunnel Release ??? Cervical Laminectomy ??? Hysterectomy ??? NASAL POLYPECTOMY ??? Rotator Cuff Repair ??? ULNAR NERVE TRANSPOSITION Social History Tobacco Use ??? Smoking status: Never Substance Use Topics ??? Alcohol use: No Allergies Allergen Reactions ??? Latex ??? Cyclobenzaprine ??? Fluoxetine ??? Naproxen ??? Sulfamethoxazole W-Trimethoprim ??? Eggs ??? Other demeral ??? Urecholine [Bethanechol Chloride] No current facility-administered medications for this encounter. Current Outpatient Medications Medication Sig ??? albuterol (5 MG/ML) 0.5% 48 mg in nacl 0.9 % ??? Amitriptyline HCl (ELAVIL PO) ??? Citalopram Hydrobromide (CELEXA PO) ??? diazepam (VALIUM) 2 MG tablet Take 1 Tab by mouth. TID ??? diclofenac sodium (VOLTAREN) 50 MG tablet Take 1 Tab by mouth 2 times daily. ??? LOSARTAN POTASSIUM PO ??? METFORMIN HCL PO ??? OMEPRAZOLE PO Exam: Vitals: 02/14/22 2227 02/15/22 0010 02/15/22 0015 02/15/22 0022 BP: 110/48 101/48 Pulse: 80 Resp: 16 Temp: 98.2 ??F (36.8 ??C) SpO2: 96% 95% 98% Weight: 70.3 kg (155 lb) Height: 1.651 m (5' 5 ) Gen- no acute distress Eyes- No entrapment, PERRL, ecchymosis around the right eye, repaired laceration of the right eyebrow, 40/20 bilaterally, normal conjunctiva Ent- no neck swelling Cv- heart without murmur, normal pulses bilateral radial Resp- lung clear to auscultation Abd- soft, nontender, normal bowel sounds Back- nontender Gu- deferred Ms- No tenderness to spine, some diffuse tenderness to palpation to right lateral rib cage area no focal tenderness, no ext swelling Skin- sutured laceration just above the right eyebrow Neuro- normal motor all 4 Psych- normal affect Lymph- MDM: DDx: Multi fracture vs soft tissue injury vs other Plan: Optho consult, labs, EKG ED Course: Labs Reviewed CBC W AUTO DIFFERENTIAL - Abnormal; Notable for the following components: Result Value RBC 3.35 (*) Hemoglobin 9.9 (*) Hematocrit 30.1 (*) Neutrophils % 72.8 (*) Lymphocytes % 15.3 (*) All other components within normal limits COMPREHENSIVE METABOLIC PANEL - Abnormal; Notable for the following components: BUN 33 (*) Creatinine 1.74 (*) Sodium 132 (*) Potassium 5.1 (*) eGFR by CKD-EPI 31 (*) All other components within normal limits TSH REFLEX FREE T4 - Normal TROPONIN I - Normal URINALYSIS REFLEX TO MICROSCOPIC NO CULTURE Lab interpret: Anemia XR CHEST 1VW PORTABLE (Results Pending) Rad interpret: By my review no acute abnormality EKG from 12:55 a.m. by my review normal sinus rhythm rate of 73, no ST elevation, no ST depression,no delta waves, no Brugada syndrome, normal QTC at 409, normal EKG ED COURSE: pt counseled on findings and plan 2317: Discussed all the pertinent aspects of the case with optho who will see the patient. Patient is 72 syncopal episode. Positive anemia. Will discuss with medicine admission for syncope workup. Patient seen by Ophthalmology and they recommend supportive care. Patient seen by ENT and they will follow while patient inpatient Resident spoke with internal medicine and patient admitted for further care. Consult: Yes ophthalmology Procedure done at this time: No Ultrasound done at this time: No Critical Care: No Clinical Impression: 1. Syncope and collapse 2. Fall, initial encounter 3. Trauma 4. Injury of head, initial encounter 5. Multiple closed fractures of facial bone, initial encounter ([facility]) Disposition: Admission Please see resident note for further details By signing my name below, ISanchez, attest that this documentation has been prepared under the direction and in the presence of Dr. Sparrow. Signed: Lencho Kinsey. I, Dr. Sparrow, personally performed the services described in this documentation. All medical record entries made by the scribe were at my direction and in my presence. I have reviewed the chart andagree that the record reflects my personal performance and is accurate and complete. [facility] * Tere Thompson RN - 02/14/2022 10:19 PM CST Pt resting comfortably in ED stretcher with equal and bilateral chest rise and fall. VSS. A& Ox4. Cold wash rag placed over pts eyes due to head pain. MDs going into see pt regarding injuries andpain. [facility] * Missy Ríos PA-C - 02/14/2022 10:07 PM CST Bed: AC17 Expected date: Expected time: Means of arrival: Comments: [place] [facility] documented in this encounter Plan of Treatment Upcoming Encounters Date Type Department Care Team (Late st Contact Info) Description 06/02/2024 1:45 PM MANAGER URGENT CARE Office Visit [facility] - Orthopedics [address] [place] [address], [facility] [place] [id number] Deon Taylor MD [address] [place] [id number] documented as of this encounter Procedures Procedure Name Priority Date/Time Associated Diagnosis Comments CORTISOL BLOOD AM Timed 02/19/2022 5:3 6 AM MANAGER URGENT CARE CORTISOL BLOOD AM Timed 02/19/2022 5:3 5 AM MANAGER URGENT CARE BASIC METABOLIC PANEL (CALCIUM TOTAL) AM Draw 02/19/2022 4:29 AM MANAGER [facility]RGENT CARE CORTISOL BLOOD AM Timed 02/19/2022 4:2 9 AM MANAGER [facility]RGENT CARE BASIC METABOLIC PANEL (CALCIUM TOTAL) Routine 02/18/2022 12:18 PM MANAGER URGENT CARE BASIC METABOLIC PANEL (CALCIUM TOTAL) AM Draw 02/18/2022 6:58 AM MANAGER URGENT CARE SODIUM URINE RANDOM Routine 02/17/2022 2 :08 PM MANAGER URGENT CARE OSMOLALITY URINE Routine 02/17/2022 2:08 PM MANAGER URGENT CARE CBC W/O DIFFERENTIAL AM Draw 02/17/2022 6:12 AM [facility]ARE Syncope and collapse BASIC METABOLIC PANEL (CALCIUM TOTAL) AM Draw 02/17/2022 6:12 AM [facility]RG[facility]ARE Syncope and collapse MRI CERVICAL SPINE WO CONTRAST Routine 02/16/2022 7:19 PM [facility]RG[facility]ARE Degeneration of cervical intervertebral disc TSH REFLEX FREE T4 Routine 02/16/2022 7: 57 AM MANAGER [facility]RG[facility]ARE Syncope and collapse HEMOGLOBIN A1C Routine 02/16/2022 7:57 AM [facility]RG[facility]ARE DM (diabetes mellitus) type II, controlled, with peripheral vascular disorder (HCC) CBC W/O DIFFERENTIAL AM Draw 02/16/2022 7:57 AM [facility]ARE Syncope and collapse RENAL FUNCTION PANEL Routine 02/16/2022 7:57 AM [facility] Syncope and collapse MAGNESIUM BLOOD Routine 02/16/2022 7:57 AM [facility]ARE Syncope and collapse GLUCOSE - POINT OF CARE Routine 02/16/2022 6:57 AM MANA[facility]RG[facility] CARE GLUCOSE - POINT OF CARE Routine 02/16/2022 1:[address] CERVICAL SPINE WO CONTRAST Routine 02/15/2022 10:41 PM MANA[facility] CARE Multiple closed fractures of facial bone, initial encounter (HCC) GLUCOSE - POINT OF CARE Routine 02/15/2022 8:42 PM MANAGER [facility]RGENT CARE GLUCOSE - POINT OF CARE Routine 02/15/2022 6:52 PM [facility] SARS-COV-2 (COVID-19)+INFLU A+B PCR RAPID STAT 02/15/2022 3:07 PM MANAGER [facility] CARE Trauma VAS CAROTID DUPLEX BILATERAL Routine 02/15/2022 1:56 PM [facility]NAGER [facility]RG[facility] CARE Syncope and collapse GLUCOSE - POINT OF CARE Routine 02/15/2022 12:00 PM MANAGER [facility]RGENT CARE CARDIAC EKG ORDER 02/15/2022 11: 30 AM MANAGER URGENT CARE ECHO COMPLETE Routine 02/15/2022 11:27 AM [facility]ARE Syncope and collapse URINALYSIS REFLEX TO MICROSCOPIC NO CULTURE STAT 02/15/2022 3:35 AM MANAGER URGENT CARE EKG 12-LEAD Routine 02/15/2022 12:55 AM [facility]NA[facility]RG[facility]ARE Syncope and collapse TSH REFLEX FREE T4 STAT 02/14/2022 11 :55 PM MANAGER URGENT CARE TROPONIN I STAT 02/14/2022 11:55 PM MANA[facility]ARE CBC W AUTO DIFFERENTIAL STAT 02/14/2022 11:55 PM MANAGER [facility]RGENT CARE COMPREHENSIVE METABOLIC PANEL STAT 02/14/2022 11:55 PM [facility]RG[facility]ARE XR CHEST 1VW PORTABLE STAT 02/14/2022 11:25 PM MANAGER [facility]RG[facility] CARE Syncope and collapse documented in this encounter Results * CORTISOL BLOOD AM (02/19/2022 5:36 AM MANAGER [facility]RGENT CARE) [facility] Cortisol AM 5.4 3.7 - 19.4 ug/dL 02/19/2022 6:54 AM MANAGER URGENT CARE [facility] Blood BLOOD SPECIMEN / Unknown Lab Venipuncture / Unknown 02/19/2022 5:36 AM MANAGER [facility]RGENT CARE 02/19/2022 6:06 AM MANAGER [facility]RG[facility]ARE Narrative [facility] - 02/19/2022 6:54 AM MANAGER URGENT CARE Normal cortisol levels are generally highest in the morning hours and lowest from late evening through the early interventionist 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 ??The PM measurements of cortisol run approximately one-half to one-third of the AM values. Meet Flores PA-C LAB - CHEMISTRY ORDERABLES Performing Organization Address [facility] de Phone Number [address] [address], [facility] [phone] * CORTISOL BLOOD AM (02/19/2022 5:35 AM [facility]) Cortisol AM 5.8 3.7 - 19.4 ug/dL 02/19/2022 6:27 AM [facility] Blood BLOOD SPECIMEN / Unknown Lab Venipuncture / Unknown 02/19/2022 5:35 AM [facility]ARE 02/19/2022 5:35 AM [facility] Narrative [facility] - 02/19/2022 6:27 AM MA[facility]ARE Normal cortisol levels are generally highest in the morning hours and lowest from late evening through the early interventionist 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 ??The PM measurements of cortisol run approximately one-half to one-third of the AM values. Meet Flores PA-C LAB - CHEMISTRY ORDERABLES Performing Organization Address [facility] de Phone Number [address] [address], [facility] [phone] * (ABNORMAL) BASIC METABOLIC PANEL (CALCIUM TOTAL) (02/19/2022 4:29 AM [facility]) BUN 18 7 - 26 mg/dL 02/19/2022 5:08 AM [facility] Creatinine 1.58(H) 0.56 - 0.96 mg/dL 02/19/2022 5:08 AM [facility] Sodium 132(L) 136 - 145 mmol/L 02/19/2022 5:08 AM [facility] Potassium 4.5 3.5 - 4.5 mmol/L 02/19/2022 5:08 AM [facility] Chloride 104 98 - 107 mmol/L 02/19/2022 5:08 AM [facility] CO2 22 22 - 29 mmol/L 02/19/2022 5:08 AM [facility] Glucose 83 70 - 115 mg/dL 02/19/2022 5:08 AM [facility] Calcium 9.1 8.4 - 10.2 mg/dL 02/19/2022 5:08 AM [facility] Anion Gap 11 - 02/19/2022 5:08 AM [facility] BUN/Creatinine Ratio 11 - 02/19/2022 5:08 AM [facility] Osmolality Calculated 275 270 - 300 mOsm/kg 02/19/2022 5:08 AM [facility] eGFR by CKD-EPI 35(L) >=90 mL/min/1.7 3 m2 02/19/2022 5:08 AM [facility] Blood BLOOD SPECIMEN / Unknown Lab Venipuncture / Unknown 02/19/2022 4:29 AM [facility] 02/19/2022 4:39 AM [facility] Meet Flores PA-C LAB - CHEMISTRY ORDERABLES [address] [address], [facility] [phone] * CORTISOL BLOOD AM (02/19/2022 4:29 AM [facility]) Cortisol AM 6.9 3.7 - 19.4 ug/dL 02/19/2022 5:23 AM [facility] Blood BLOOD SPECIMEN / Unknown Lab Venipuncture / Unknown 02/19/2022 4:29 AM [facility] 02/19/2022 4:38 AM [facility] Narrative [facility] - 02/19/2022 5:23 AM [facility] Normal cortisol levels are generally highest in the morning hours and lowest from late evening through the early interventionist 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 ??The PM measurements of cortisol run approximately one-half to one-third of the AM values. Meet C Mark PA-C LAB - CHEMISTRY ORDERABLES [facility] [address] [place] [address], [place] [phone] * (ABNORMAL) BASIC METABOLIC PANEL (CALCIUM TOTAL) (02/18/2022 12:18 PM [facility]) BUN 19 7 - 26 mg/dL 02/18/2022 1:05 PM [facility] Creatinine 1.55(H) 0.56 - 0.96 mg/dL 02/18/2022 1:05 PM [facility] Sodium 129(L) 136 - 145 mmol/L 02/18/2022 1:05 PM [facility] Potassium 4.8(H) 3.5 - 4.5 mmol/L 02/18/2022 1:05 PM [facility] Chloride 98 98 - 107 mmol/L 02/18/2022 1:05 PM [facility] CO2 21(L) 22 - 29 mmol/L 02/18/2022 1:05 PM [facility] Glucose 137(H) 70 - 115 mg/dL 02/18/2022 1:05 PM [facility] Calcium 9.5 8.4 - 10.2 mg/dL 02/18/2022 1:05 PM [facility] Anion Gap 15 8 - 18 02/18/2022 1:05 PM [facility] BUN/Creatinine Ratio 12 7 - 23 02/18/2022 1:05 PM [facility] Osmolality Calculated 272 270 - 300 mOsm/kg 02/18/2022 1:05 PM [facility] eGFR by CKD-EPI 35(L) >=90 mL/min/1.7 3 m2 02/18/2022 1:05 PM [facility] Blood BLOOD SPECIMEN / Unknown Lab Venipuncture / Unknown 02/18/2022 12:18 PM [facility] 02/18/2022 12:34 PM [facility] Meet Flores PA-C LAB - CHEMISTRY ORDERABLES [facility] [address] [place] [address], [place] [phone] * (ABNORMAL) BASIC METABOLIC PANEL (CALCIUM TOTAL) (02/18/2022 6:58 AM [facility]) BUN 19 7 - 26 mg/dL 02/18/2022 8:07 AM [facility] Creatinine 1.60(H) 0.56 - 0.96 mg/dL 02/18/2022 8:07 AM [facility] Sodium 126(L) 136 - 145 mmol/L 02/18/2022 8:07 AM [facility] Potassium 4.5 3.5 - 4.5 mmol/L 02/18/2022 8:07 AM [facility] Chloride 95(L) 98 - 107 mmol/L 02/18/2022 8:07 AM [facility] CO2 23 22 - 29 mmol/L 02/18/2022 8:07 AM [facility] Glucose 81 70 - 115 mg/dL 02/18/2022 8:07 AM [facility] Calcium 9.2 8.4 - 10.2 mg/dL 02/18/2022 8:07 AM [facility] Anion Gap 13 8 - 18 02/18/2022 8:07 AM [facility] BUN/Creatinine Ratio 12 7 - 23 02/18/2022 8:07 AM [facility] Osmolality Calculated 263(L) 270 - 300 mOsm/kg 02/18/2022 8:07 AM [facility] eGFR by CKD-EPI 34(L) >=90 mL/min/1.7 3 m2 02/18/2022 8:07 AM [facility] Blood BLOOD SPECIMEN / Unknown Lab Venipuncture / Unknown 02/18/2022 6:58 AM [facility] 02/18/2022 7:41 AM [facility] Meet Flores PA-C LAB - CHEMISTRY ORDERABLES [facility] [address] [place] [address], [facility] [phone] * OSMOLALITY URINE (02/17/2022 2:08 PM [facility]) Osmolality Urine 234 50 - 1,200 mOsm/kg 02/17/2022 3:23 PM [facility] Urine URINE SPECIMEN OBTAINED BY CLEAN CATCH PROCEDURE / Unknown Collection / Unknown 02/17/2022 2:08 PM [facility] 02/17/2022 2:13 PM [facility] Narrative [facility] - 02/17/2022 3:23 PM MANAGER [facility]RGENT CARE QRY Meet Flores PA-C LAB - URINE CHEM ISTRY ORDERABLES Performing Organization Address City/[facility]/ZIP Co de Phone Number [address] [address], [facility] [phone] * SODIUM URINE RANDOM (02/17/2022 2:08 PM MA[facility]ARE) Sodium Urine 55 Not Established mmol/L 02/17/2022 2:30 PM [facility] Urine URINE SPECIMEN OBTAINED BY CLEAN CATCH PROCEDURE / Unknown Collection / Unknown 02/17/2022 2:08 PM [facility] 02/17/2022 2:13 PM [facility] Meet Flores PA-C LAB - URINE CHEM ISTRY ORDERABLES Performing Organization Address [facility]/ZIP Co de Phone Number [address] [address], [place] [phone] * (ABNORMAL) CBC W/O DIFFERENTIAL (02/17/2022 6:12 AM [facility]) WBC 5.8 3.5 - 10.5 10? 3 /uL 02/17/2022 6:53 AM [facility] RBC 3.18(L) 3.80 - 5.20 10? 6 /uL 02/17/2022 6:53 AM [facility] Hemoglobin 9.6(L) 12.0 - 15.6 g/dL 02/17/2022 6:53 AM [facility] Hematocrit 28.3(L) 35.0 - 45.0 % 02/17/2022 6:53 AM [facility] MCV 89.0 80.7 - 98.3 fL 02/17/2022 6:53 AM [facility] MCH 30.2 26.7 - 34.0 pg 02/17/2022 6:53 AM [facility] MCHC 33.9 30.8 - 35.9 g/dL 02/17/2022 6:53 AM [facility] RDW-SD 41.6 36.0 - 50.0 fL 02/17/2022 6:53 AM [facility] RDW-CV 12.7 11.2 - 14.8 % 02/17/2022 6:53 AM [facility] Platelet Count 259 150 - 400 10? 3 /uL 02/17/2022 6:53 AM [facility] MPV 9.9 9.4 - 12.9 fL 02/17/2022 6:53 AM [facility] nRBC Absolute 0.00 0 10? 3 /uL 02/17/2022 6:53 AM [facility] nRBC Auto 0.0 0 /100 WBC 02/17/2022 6:53 AM [facility] Blood BLOOD SPECIMEN / Unknown Lab Venipuncture / Unknown 02/17/2022 6:12 AM [facility] 02/17/2022 6:48 AM [facility] Meet Flores PA-C LAB - HEMATOLOGY ORDERABLES Performing Organization Address City/State/[facility] Co de Phone Number [facility] [address] [place] [address], [facility] [phone] * (ABNORMAL) BASIC METABOLIC PANEL (CALCIUM TOTAL) (02/17/2022 6:12 AM [facility]) BUN 21 7 - 26 mg/dL 02/17/2022 7:13 AM [facility] Creatinine 1.64(H) 0.56 - 0.96 mg/dL 02/17/2022 7:13 AM [facility] Sodium 128(L) 136 - 145 mmol/L 02/17/2022 7:13 AM [facility] Potassium 4.8(H) 3.5 - 4.5 mmol/L 02/17/2022 7:13 AM [facility] Chloride 97(L) 98 - 107 mmol/L 02/17/2022 7:13 AM [facility] CO2 22 22 - 29 mmol/L 02/17/2022 7:13 AM [facility] Glucose 119(H) 70 - 115 mg/dL 02/17/2022 7:13 AM [facility] Calcium 9.3 8.4 - 10.2 mg/dL 02/17/2022 7:13 AM [facility] Anion Gap 14 8 - 18 02/17/2022 7:13 AM [facility] BUN/Creatinine Ratio 13 7 - 23 02/17/2022 7:13 AM [facility] Osmolality Calculated 270 270 - 300 mOsm/kg 02/17/2022 7:13 AM [facility] eGFR by CKD-EPI 33(L) >=90 mL/min/1.7 3 m2 02/17/2022 7:13 AM [facility] Blood BLOOD SPECIMEN / Unknown Lab Venipuncture / Unknown 02/17/2022 6:12 AM [facility] 02/17/2022 6:48 AM [facility] Meet Flores PA-C LAB - CHEMISTRY ORDERABLES [facility] [address] [place] [address], [facility] [phone] * MRI CERVICAL SPINE WO CONTRAST (02/16/2022 7:19 PM [facility]) Anatomical Region Laterality Modality Pelvis Magnetic Resonan ce 02/18/2022 1:46 PM [facility] Impressions 02/18/2022 2:03 PM [facility] IMPRESSION: 1. Degenerative changes of the spine [...] 02/18/2022 2:03 PM Narrative 02/18/2022 2:03 PM [facility] PROCEDURE: ??MRI CERVICAL SPINE WO CONTRAST, DATE/TIME OF EXAM: ??02/16/2022 7:20 PM, LOCATION ??[facility] INDICATION: M50.30: Degeneration of cervical [...] mild bilateral neural foraminal stenosis. Procedure Note Brook Billy MD - 02/18/2022 PROCEDURE: MRI CERVICAL SPINE WO CONTRAST, DATE/TIME OF EXAM:02/16/2022 7:20 PM, LOCATION [facility] INDICATION: M50.30: Degeneration of cervical [...] Brook Billy MD on 02/18/2022 2:03 PM Meet Flores PA-C MR ORDERABLES * (ABNORMAL) CBC W/O DIFFERENTIAL (02/16/2022 7:57 AM MANAGER [facility]RG[facility]ARE) [facility] WBC 5.7 3.5 - 10.5 10? 3 /uL 02/16/2022 8:26 AM MANAGER URGENT CARE [facility] RBC 3.51(L) 3.80 - 5.20 10? 6 /uL 02/16/2022 8:26 AM [facility] Hemoglobin 10.5(L) 12.0 - 15.6 g/dL 02/16/2022 8:26 AM [facility] Hematocrit 31.8(L) 35.0 - 45.0 % 02/16/2022 8:26 AM [facility] MCV 90.6 80.7 - 98.3 fL 02/16/2022 8:26 AM [facility] MCH 29.9 26.7 - 34.0 pg 02/16/2022 8:26 AM [facility] MCHC 33.0 30.8 - 35.9 g/dL 02/16/2022 8:26 AM [facility] RDW-SD 41.6 36.0 - 50.0 fL 02/16/2022 8:26 AM [facility] RDW-CV 12.8 11.2 - 14.8 % 02/16/2022 8:26 AM [facility] Platelet Count 300 150 - 400 10? 3 /uL 02/16/2022 8:26 AM [facility] MPV 9.8 9.4 - 12.9 fL 02/16/2022 8:26 AM [facility] nRBC Absolute 0.00 0 10? 3 /uL 02/16/2022 8:26 AM [facility] nRBC Auto 0.0 0 /100 WBC 02/16/2022 8:26 AM [facility] Blood BLOOD SPECIMEN / Unknown Lab Venipuncture / Unknown 02/16/2022 7:57 AM [facility] 02/16/2022 8:15 AM [facility] Meet Flores PA-C LAB - HEMATOLOGY ORDERABLES [facility] [address] [place] [address], [facility] [phone] * HEMOGLOBIN A1C (02/16/2022 7:57 AM [facility]) Hemoglobin A1c 5.1 <=5.6 % 02/16/2022 11:17 AM [facility] Estimated Average Glucose 100 mg/dL 02/16/2022 11:17 AM [facility] Comment: HbA1c Interpretation: Normal : < 5.7% Pre-diabetes: 5.7-6.4% Diabetes: Equal to or greater than 6.5% Test results diagnostic of diabetes should be repeated for confirmation. Treatment target values recommended by ADA and other clinical organizations should be used to evaluate metabolic control in patients. Reference: [employer], Standards of Care in Diabetes -2020 In patients 70 years and older consider HbA1c target range of 7.0-7.5% (Reference: Oswaldo Liz et al. JAMDA. 2012) The Sebia assay for the measurement of HbA1c is a National Glycohemoglobin Standardization Program (NGSP) certified method. Blood BLOOD SPECIMEN / Unknown Lab Venipuncture / Unknown 02/16/2022 7:57 AM [facility] 02/16/2022 8:14 AM [facility] Meet Flores PA-C LAB - CHEMISTRY ORDERABLES Performing Organization Address City/[facility]/ZIP Co de Phone Number [address] [address], [facility] [phone] * TSH REFLEX FREE T4 (02/16/2022 7:57 AM [facility]) TSH 1.522 0.350 - 4.940 uIU/mL 02/16/2022 9:01 AM [facility] Blood BLOOD SPECIMEN / Unknown Lab Venipuncture / Unknown 02/16/2022 7:57 AM [facility] 02/16/2022 8:15 AM [facility] Dagoberto Ordoñez MD LAB - CHEMISTRY ORDERABLES [address] [address], [facility] [phone] * MAGNESIUM BLOOD (02/16/2022 7:57 AM [facility]) Magnesium 1.8 1.6 - 2.6 mg/dL 02/16/2022 8:43 AM [facility] Blood BLOOD SPECIMEN / Unknown Lab Venipuncture / Unknown 02/16/2022 7:57 AM [facility] 02/16/2022 8:15 AM [facility] Dagoberto Ordoñez MD LAB - CHEMISTRY ORDERABLES [facility] [address] [place] [address], [facility] [phone] * (ABNORMAL) RENAL FUNCTION PANEL (02/16/2022 7:57 AM [facility]) BUN 27(H) 7 - 26 mg/dL 02/16/2022 8:43 AM [facility] Creatinine 1.77(H) 0.56 - 0.96 mg/dL 02/16/2022 8:43 AM [facility] Sodium 131(L) 136 - 145 mmol/L 02/16/2022 8:43 AM [facility] Potassium 5.0(H) 3.5 - 4.5 mmol/L 02/16/2022 8:43 AM [facility] Chloride 100 98 - 107 mmol/L 02/16/2022 8:43 AM [facility] CO2 24 22 - 29 mmol/L 02/16/2022 8:43 AM [facility] Glucose 88 70 - 115 mg/dL 02/16/2022 8:43 AM [facility] Albumin 3.6 3.4 - 5.0 g/dL 02/16/2022 8:43 AM [facility] Calcium 9.6 8.4 - 10.2 mg/dL 02/16/2022 8:43 AM [facility] Phosphorus 3.9 2.9 - 5.1 mg/dL 02/16/2022 8:43 AM [facility] Anion Gap 12 8 - 18 02/16/2022 8:43 AM [facility] BUN/Creatinine Ratio 15 7 - 23 02/16/2022 8:43 AM [facility] Osmolality Calculated 277 270 - 300 mOsm/kg 02/16/2022 8:43 AM [facility] eGFR by CKD-EPI 30(L) >=90 mL/min/1.7 3 m2 02/16/2022 8:43 AM [facility] Blood BLOOD SPECIMEN / Unknown Lab Venipuncture / Unknown 02/16/2022 7:57 AM [facility] 02/16/2022 8:15 AM [facility] Dagoberto Ordoñez MD LAB - CHEMISTRY ORDERABLES [facility] [address] [place] [address], [place] [phone] * GLUCOSE - POINT OF CARE (02/16/2022 6:57 AM [facility]) Glucose WB/POC 112 70 - 115 mg/dL 02/16/2022 6:59 AM [facility] Specimen Type Cap Fingerstick 2021 6:59 AM [facility] Blood BLOOD SPECIMEN / Unknown 02/16/2022 6:57 AM [facility] 02/16/2022 6:59 AM [facility] Marii Light MD LAB - POINT OF CAR E ORDERABLES [facility] [address] [place] [address], [place] [phone] * GLUCOSE - POINT OF CARE (02/16/2022 1:53 AM [facility]) Glucose WB/POC 80 70 - 115 mg/dL 02/16/2022 1:58 AM [facility] Specimen Type Cap Fingerstick 2021 1:58 AM [facility] Blood BLOOD SPECIMEN / Unknown 02/16/2022 1:53 AM [facility] 02/16/2022 1:57 AM [facility] Marii Light MD LAB - POINT OF CAR E ORDERABLES [facility] [address] [place] [address], [place] [phone] * CT CERVICAL SPINE WO CONTRAST (02/15/2022 10:41 PM [facility]) Anatomical Region Laterality Modality Spine Computed Tomogra phy 02/16/2022 2:09 AM [facility] Impressions 02/16/2022 2:29 AM [facility] IMPRESSION: 1.No acute fracture or traumatic malalignment [...] 02/16/2022 2:29 AM Narrative 02/16/2022 2:29 AM [facility] PROCEDURE: ??CT CERVICAL SPINE WO CONTRAST, DATE/TIME OF EXAM: ??02/15/2022 10:41 PM, LOCATION ??[facility] INDICATION: S02.92XA: Multiple closed fractures of facial bone, initial encounter ([facility]) ADDITIONAL CLINICAL INFORMATION: Ordering Provider Reason For [...] CONTRAST, DATE/TIME OF EXAM:02/15/2022 10:41 PM, LOCATION [facility] INDICATION: S02.92XA: Multiple closed fractures of facial bone, initial encounter ([facility]) ADDITIONAL CLINICAL INFORMATION: Ordering Provider Reason For [...] left C3-C5 facets, right C3-C4 facets, and C3-P6prlnomq processes. DISCS: Osseous fusion of the C3-C5 [...] in moderate spinal canal stenosis at the C5-Q6vcvnp and mild spinal canal stenosis at the C3-C4, C6-C7, and C7-T1 levels. 3.Severe bilateral neuroforaminal narrowing at the C5-C6 level. > Interpreting Provider: Barbara Wallace DR on 02/16/2022 2:29 AM Meet Flores PA-C CT ORDERABLES * GLUCOSE - POINT OF CARE (02/15/2022 8:42 PM [facility]) Glucose WB/POC 92 70 - 115 mg/dL 02/15/2022 8:47 PM [facility] Specimen Type Cap Fingerstick 2021 8:47 PM [facility] Blood BLOOD SPECIMEN / Unknown 02/15/2022 8:42 PM [facility] 02/15/2022 8:47 PM [facility] Marii Light MD LAB - POINT OF CAR E ORDERABLES [facility] [address] [place] [address], [facility] [phone] * (ABNORMAL) GLUCOSE - POINT OF CARE (02/15/2022 6:52 PM [facility]) Glucose WB/POC 134(H) 70 - 115 mg/dL 02/15/2022 6:57 PM [facility] Specimen Type Arterial 02/15/2022 6:57 PM [facility] Blood BLOOD SPECIMEN / Unknown 02/15/2022 6:52 PM [facility] 02/15/2022 6:57 PM [facility] Marii Light MD LAB - POINT OF CAR E ORDERABLES [facility] [address] [place] [address], [facility] [phone] * SARS-COV-2 (COVID-19)+INFLU A+B PCR RAPID (02/15/2022 3:07 PM [facility]) COVID-19 PCR Not detected Not detected 02/16/20 3:59 PM [facility] Influenza A Rapid WENDI Not Detected Not Detected 02/15/2022 3:59 PM [facility] Influenza B WENDI Rapid Not Detected Not Detected 02/15/2022 3:59 PM [facility] Microbiology SPECIMEN FROM NASOPHARYNGEAL STRUCTURE / Unknown Collection / Unknown 02/15/2022 3:07 PM [facility] 02/15/2022 3:10 PM [facility] Narrative [facility] - 02/15/2022 3:59 PM [facility] Influenza assay performed by [employer]. [...] acid amplification assay performance was validated by [facility]. This test has been authorized by the [...] Burk MD LAB - MICROBIOLOGY O RDERABLES Performing Organization Address [facility]/ZIP Co de Phone Number [address] [address], [facility] [phone] * VAS CAROTID DUPLEX BILATERAL (02/15/2022 1:56 PM [facility]) Anatomical Region Laterality Modality Neck Intravascular Ul trasound 02/15/2022 12:0 2 PM [facility] Narrative Procedure Note Adolph Pineda MD - 02/16/2022 Dagoberto Ordoñez MD VASCULAR LAB ORD ERABLES * GLUCOSE - POINT OF CARE (02/15/2022 12:00 PM [facility]) Glucose WB/POC 85 70 - 115 mg/dL 02/15/2022 12:08 PM [facility] Specimen Type Cap Fingerstick 2021 12:08 PM [facility] Blood BLOOD SPECIMEN / Unknown 02/15/2022 12:00 PM [facility] 02/15/2022 12:08 PM [facility] Abeba Will DO LAB - POINT OF CARE ORDERABLES Performing Organization Address [facility]/ZIP Co de Phone Number [address] [address], [facility] [phone] * CARDIAC EKG ORDER (02/15/2022 11:30 AM [facility]) Narrative 02/15/2022 11:30 AM [facility] Ordered by an unspecified provider. Scanned Document CARDIAC SERVICES ORD ERABLES * ECHO COMPLETE (02/15/2022 11:27 AM [facility]) Anatomical Region Laterality Modality Chest Echo 02/15/2022 10:2 8 AM [facility] Narrative Procedure Note Corey Flowers MD - 02/15/2022 Dagoberto Ordoñez MD ECHOCARDIOGRAPHY RADIANT * (ABNORMAL) URINALYSIS REFLEX TO MICROSCOPIC NO CULTURE (02/15/2022 3:35 AM [facility]) Color UA Straw Straw, Yellow 02/15/2022 3:47 AM [facility] Clarity UA Clear Clear 02/15/2022 3:47 AM [facility] Specific Burton UA 1.008 1.005 - 1.030 02/15/2022 3:47 AM [facility] pH UA 5.0 5.0 - 8.0 pH 02/15/2022 3:47 AM [facility] Protein UA Negative Negative 02/15/2022 3:47 AM [facility] Glucose UA Negative Negative 02/15/2022 3:47 AM [facility] Ketone UA Negative Negative 02/15/2022 3:47 AM [facility] Bilirubin UA Negative Negative 02/15/2022 3:47 AM [facility] Blood UA Negative Negative 02/15/2022 3:47 AM [facility] Nitrite UA Negative Negative 02/15/2022 3:47 AM [facility] Leukocyte Esterase 1+(A) Negative 02/15/2022 3:47 AM [facility] Urobilinogen UA Negative Negative mg/dL 02/15/2022 3:47 AM [facility] RBC UA 0-2 None Seen, 0-2, 3-5 /HPF 02/15/2022 3:47 AM [facility] WBC UA 0-5 None Seen, 0-5 /HPF 02/15/2022 3:47 AM [facility] Bacteria UA Trace(A) None /HPF 02/15/2022 3:47 AM [facility] Squamous Epithelial Cells UA 0-2 None Seen, 0-2, 3-5 /HPF 02/15/2022 3:47 AM [facility] Urine URINE SPECIMEN OBTAINED BY CLEAN CATCH PROCEDURE / Unknown Collection / Unknown 02/15/2022 3:35 AM [facility] 02/15/2022 3:37 AM [facility] - 02/15/2022 3:47 AM [facility] Justo Sparrow MD LAB - URINALYSIS ORD ERABLES Performing Organization Address [facility]/ZIP Co de Phone Number [facility] [address] [place] [address], [facility] [phone] * EKG 12-LEAD (02/15/2022 12:55 AM [facility]) Ventricular Rate 73 BPM [facility] Atrial Rate 73 BPM [facility] P-R Interval 152 ms [facility] QRS Duration ms 78 ms [facility] Q-T Interval ms 372 ms [facility] QTC Calculation (Bezet) 409 ms SL MUSE Calculated P [place] 35 degrees SL MUSE Calculated R [place] 34 degrees [facility] Calculated T [place] 60 degrees [facility] Interpretation EKG NORMAL SINUS RHYTHM NORMAL ECG NO PREVIOUS ECGS AVAILABLE Confirmed by MENDEL LUNA MD ([id number]) on 02/15/2022 9:57:52 AM [facility] 02/15/2022 12:5 5 AM [facility] 02/15/2022 9:57 AM [facility] Justo Sparrow MD ECG ORDERABLES Performing Organization Address [facility] Co de Phone Number [facility] * TROPONIN I (02/14/2022 11:55 PM [facility]) Pathologist [facility] Troponin I 0.027 <0.032 ng/mL 02/15/2022 12:31 AM [facility] Blood BLOOD SPECIMEN / Unknown Venipuncture / Unknown 02/14/2022 11:55 PM [facility] 02/14/2022 11:58 PM [facility] Justo Sparrow MD LAB - CHEMISTRY ORDE RABLES Performing Organization Address [facility]/ZIP Co de Phone Number [facility] [address] [place] [address], [place] [phone] * TSH REFLEX FREE T4 (02/14/2022 11:55 PM [facility]) Pathologist [facility] TSH 0.749 0.350 - 4.940 uIU/mL 02/15/2022 12:44 AM [facility] Blood BLOOD SPECIMEN / Unknown Venipuncture / Unknown 02/14/2022 11:55 PM [facility] 02/14/2022 11:58 PM [facility] Justo Sparrow MD LAB - CHEMISTRY CHELO QUIGLEY [facility] Organization Address City/State/ZIP Co de Phone Number [facility] [address] [place] [address], [facility] [phone] * (ABNORMAL) COMPREHENSIVE METABOLIC PANEL (02/14/2022 11:55 PM [facility]) BUN 33(H) 7 - 26 mg/dL 02/15/2022 12:27 AM [facility] Creatinine 1.74(H) 0.56 - 0.96 mg/dL 02/15/2022 12:27 AM [facility] Sodium 132(L) 136 - 145 mmol/L 02/15/2022 12:27 AM [facility] Potassium 5.1(H) 3.5 - 4.5 mmol/L 02/15/2022 12:27 AM [facility] Chloride 101 98 - 107 mmol/L 02/15/2022 12:27 AM [facility] CO2 22 22 - 29 mmol/L 02/15/2022 12:27 AM [facility] Glucose 95 70 - 115 mg/dL 02/15/2022 12:27 AM [facility] Calcium 9.1 8.4 - 10.2 mg/dL 02/15/2022 12:27 AM [facility] Protein Total 6.0 6.0 - 8.3 g/dL 02/15/2022 12:27 AM [facility] Albumin 3.4 3.4 - 5.0 g/dL 02/15/2022 12:27 AM [facility] Bilirubin Total 0.5 0.2 - 1.2 mg/dL 02/15/2022 12:27 AM [facility] Alkaline Phosphatase 58 40 - 150 U/L 02/15/2022 12:27 AM [facility] ALT 13 5 - 55 U/L 02/15/2022 12:27 AM [facility] AST 16 5 - 34 U/L 02/15/2022 12:27 AM [facility] Anion Gap 14 8 - 18 02/15/2022 12:27 AM [facility] BUN/Creatinine Ratio 19 7 - 23 02/15/2022 12:27 AM [facility] Osmolality Calculated 281 270 - 300 mOsm/kg 02/15/2022 12:27 AM [facility] Albumin/Globulin Ratio 1.3 1.1 - 2.3 02/15/2022 12:27 AM [facility] eGFR by CKD-EPI 31(L) >=90 mL/min/1.7 3 m2 02/15/2022 12:27 AM [facility] Blood BLOOD SPECIMEN / Unknown Venipuncture / Unknown 02/14/2022 11:55 PM [facility] 02/14/2022 11:58 PM [facility] Justo Sparrow MD LAB - CHEMISTRY CHELO QUIGLEY [facility] Organization Address City/State/ZIP Co de Phone Number [facility] [address] [place] [address] [phone] * (ABNORMAL) CBC W AUTO DIFFERENTIAL (02/14/2022 11:55 PM [facility]) WBC 9.5 3.5 - 10.5 10? 3 /uL 02/15/2022 12:08 AM [facility] RBC 3.35(L) 3.80 - 5.20 10? 6 /uL 02/15/2022 12:08 AM [facility] Hemoglobin 9.9(L) 12.0 - 15.6 g/dL 02/15/2022 12:08 AM [facility] Hematocrit 30.1(L) 35.0 - 45.0 % 02/15/2022 12:08 AM [facility] MCV 89.9 80.7 - 98.3 fL 02/15/2022 12:08 AM [facility] MCH 29.6 26.7 - 34.0 pg 02/15/2022 12:08 AM [facility] MCHC 32.9 30.8 - 35.9 g/dL 02/15/2022 12:08 AM [facility] RDW-SD 41.4 36.0 - 50.0 fL 02/15/2022 12:08 AM [facility] RDW-CV 12.7 11.2 - 14.8 % 02/15/2022 12:08 AM [facility] Platelet Count 304 150 - 400 10? 3 /uL 02/15/2022 12:08 AM [facility] MPV 9.6 9.4 - 12.9 fL 02/15/2022 12:08 AM [facility] nRBC Absolute 0.00 0 10? 3 /uL 02/15/2022 12:08 AM [facility] nRBC Auto 0.0 0 /100 WBC 02/15/2022 12:08 AM [facility] Neutrophils % 72.8(H) 35.0 - 70.0 % 02/15/2022 12:08 AM [facility] Lymphocytes % 15.3(L) 20.0 - 43.0 % 02/15/2022 12:08 AM [facility] Monocytes % 8.9 5.0 - 13.0 % 02/15/2022 12:08 AM [facility] Eosinophils % 2.3 0.0 - 6.0 % 02/15/2022 12:08 AM [facility] Basophil % 0.3 0.0 - 2.0 % 02/15/2022 12:08 AM [facility] Neutrophils Absolute 6.91 1.60 - 7.00 10? 3 /uL 02/15/2022 12:08 AM [facility] Lymphocyte Absolute 1.45 1.10 - 3.90 10? 3 /uL 02/15/2022 12:08 AM [facility] Monocytes Absolute 0.85 0.26 - 1.07 10? 3 /uL 02/15/2022 12:08 AM [facility] Eosinophils Absolute 0.22 0.00 - 0.47 10? 3 /uL 02/15/2022 12:08 AM [facility] Basophils Absolute 0.03 0.00 - 0.08 10? 3 /uL 02/15/2022 12:08 AM [facility] Immature Granulocytes % 0.4 0.0 - 1.0 % 02/15/2022 12:08 AM [facility] Immature Granulocytes Absolute 0.04 02/15/2022 12:08 AM [facility] Blood BLOOD SPECIMEN / Unknown Venipuncture / Unknown 02/14/2022 11:55 PM [facility] 02/14/2022 11:58 PM [facility] Justo Sparrow MD LAB - HEMATOLOGY ORD ERABLES Performing Organization Address [facility]/State/ZIP Co de Phone Number [facility] [address] [place] [address], [facility] [phone] * XR CHEST 1VW PORTABLE (02/14/2022 11:25 PM [facility]) Anatomical Region Laterality Modality Chest Radiographic Vivian ging 02/14/2022 11:2 4 PM [facility] Narrative 02/15/2022 9:10 AM [facility] PROCEDURE: ??XR CHEST 1VW PORTABLE, DATE/TIME OF EXAM: ??02/14/2022 11:25 PM, LOCATION ??[facility] INDICATION: R55: Syncope and collapse [...] glenoid. > Dictated by Sushil Herrera MD (president [employer]). I, Tony Hansen MD have personally reviewed and interpreted this examination/study. > Interpreting Provider: Tony Hansen MD on 02/15/2022 9:10 AM Procedure Note Tony Hansen MD - 02/15/2022 PROCEDURE: XR CHEST 1VW PORTABLE, DATE/TIME OF EXAM: 02/14/2022 11:25PM, LOCATION [facility] INDICATION: R55: Syncope and collapse [...] glenoid. > Dictated by Sushil Herrera MD (president [employer]). I, Tony Hansen MD have personally reviewed and interpreted this examination/study. > Interpreting Provider: Tony Hansen MD on 29:10 AM Justo Sparrow MD DIAGNOSTIC IMAGING O RDERABLES documented in this encounter Visit Diagnoses Diagnosis Syncope and collapse- Primary Syncope and collapse Fall, initial encounter Trauma Injury, other and unspecified, unspecified site Injury of head, initial encounter Multiple closed fractures of facial bone, initial encounter (HCC) DM (diabetes mellitus) type II, controlled, with peripheral vascular disorder (HCC) Degeneration of cervical intervertebral disc Trauma Injury, other and unspecified, unspecified site Injury of head, initial encounter Fall, initial encounter Multiple closed fractures of facial bone, initial encounter (HCC) documented in this encounter Administered Medications Inactive Administered Medications - up to 3 most recent administrations Medication Order MAR Action Action Date Dose Rate Site 0.9% NaCl injection 1-10 mL 1-10 mL, Intracatheter, PRN, Other, peripheral line flush, Starting on Jeanette 02/15/22 at 0543, Until 02/19/22 at 1528, Flush peripheral IV catheter with 1-10 mL of normal saline before and after medications and prn to clear blood from the line or to verify patency. 0.9% NaCl injection 10 mL 10 mL, Intracatheter, INTRA-PROCEDURE MULTIPLE, Starting on Jeanette 02/15/22 at 1030, Until Jeanette 02/15/22 at 1429, For Echo Procedure - Per Protocol Agitate saline before administration. $ Given 02/15/2022 11:23 AM [facility] 10 mL $ Given 02/15/2022 11:09 AM [facility] 10 mL 0.9% NaCl injection 3 mL 3 mL, Intracatheter, EVERY 8 HOURS, First dose on Jeanette 02/15/22 at 0600, Until Discontinued, Flush peripheral IV catheter with 3 mL of normal saline every 8 hours. $ Given 02/19/2022 5:39 AM [facility] 3 mL $ Given 02/18/2022 10:24 PM [facility] 3 mL $ Given 02/18/2022 1:46 PM [facility] 3 mL 0.9% NaCl IV bolus 500 mL, at 967.74 mL/hr, Administer over 31 Minutes, ONCE, 1 dose, On Jeanette 02/15/22 at 1045 $ Bolus New Bag 02/15/2022 10:20 AM [facility] 500 mL 967.74 mL/hr acetaminophen (Tylenol) tablet 650 mg 650 mg, Oral, EVERY 6 HOURS PRN, Mild Pain, Starting on Jeanette 02/15/22 at 0543, Until 02/19/22 at 1528, Patient preference for lesser PRN pain meds may be honored when the patient requests a less strong medication, a lower dose, or a less intrusive route of administration when the lesser drug, dose and route have been ordered for the patient. This patient request must be documented in the MAR. $ Given 02/19/2022 8:36 AM [facility] 650 mg $ Given 02/17/2022 8:56 AM [facility] 650 mg $ Given 02/16/2022 10:57 PM [facility] 650 mg buPROPion XL 24hr (Wellbutrin-XL) tablet 150 mg 150 mg, Oral, DAILY, First dose on Jeanette 02/15/22 at 0900, Until Discontinued, Do not crush, chew, or cut in half. $ Given 02/19/2022 8:37 AM [facility] 150 mg $ Given 02/18/2022 8:59 AM [facility] 150 mg $ Given 02/17/2022 8:54 AM [facility] 150 mg calcitriol (Rocaltrol) capsule 0.25 mcg 0.25 mcg, Oral, EVERY MON, WED AND SAT, First dose on Sat02/16/22 at 1700, Until Discontinued $ Given 02/16/2022 4:04 PM [facility] 0.25 mcg citalopram (CeleXA) tablet 20 mg 20 mg, Oral, DAILY, First dose on Jeanette 02/15/22 at 0900, Until Discontinued $ Given 02/19/2022 8:37 AM [facility] 20 mg $ Given 02/18/2022 8:59 AM [facility] 20 mg $ Given 02/17/2022 8:54 AM [facility] 20 mg cosyntropin (Cortrosyn) injection 0.25 mg 0.25 mg, Intravenous, ONCE, 1 dose, On Sat02/19/22 at 0430, Do not administer until after baseline cortisol level has been drawn. IntraMUSCular injection reconstitute with 1 mL NS IntraVENous injection dilute in 2 to 5 mL of NS, inject over 2 min $ Given 02/19/2022 5:39 AM [facility] 0.25 mg dextrose 10 % IV bolus 12.5 g, at 468.75 mL/hr, Intravenous, PRN, Other, Bedside Glucose less than 70 mg/dL -If NOT able to eat and/or NPO and with IV Access, Starting on Jeanette 02/15/22 at 0543, Until Sat02/19/22 at 1528, If NOT able to eat and/or NPO [...] and with IV Access, Starting on Jeanette 02/15/22 at 0543, Until Sat02/19/22 at 1528, If NOT able to eat and/or NPO [...] IV STAT NOTIFY PROVIDER OF HYPOGLYCEMIC EVENT. erythromycin (Romycin) ophthalmic ointment Right Eye, 4 TIMES DAILY, First dose on Sat02/16/22 at 1800, Until Discontinued, Please apply to right eye brow laceration area $ Given 02/19/2022 1:46 PM [facility] $ Given 02/19/2022 8:42 AM [facility] $ Given 02/18/2022 8:20 PM [facility] escitalopram (Lexapro) tablet 20 mg 20 mg, Oral, DAILY, First dose on Sat02/15/22 at 0900, Until Discontinued $ Given 02/19/2022 8:38 AM [facility] 20 mg $ Given 02/18/2022 8:59 AM [facility] 20 mg $ Given 02/17/2022 8:54 AM [facility] 20 mg furosemide (Lasix) tablet 10 mg 10 mg, Oral, DAILY, First dose on Sat02/15/22 at 0900, Until Discontinued $ Given 02/19/2022 8:38 AM [facility] 10 mg $ Given 02/17/2022 8:54 AM [facility] 10 mg $ Given 02/15/2022 8:21 AM [facility] 10 mg heparin injection 5,000 Units 5,000 Units, Subcutaneous, 3 TIMES DAILY, First dose on Sat02/15/22 at 1400, Until Discontinued $ Given 02/19/2022 8:35 AM [facility] 5,000 Units Abd Right Lower Quadrant $ Given 02/18/2022 8:20 PM [facility] 5,000 Units A bd Left Lower Quadrant $ Given 02/18/2022 1:46 PM [facility] 5,000 Units R ight Arm latanoprost (Xalatan) 0.005 % ophthalmic solution 1 drop 1 drop, Each Eye, AT BEDTIME, First dose on Sat02/16/22 at 2100, Until Discontinued, Allow at least 5 minutes between administration of multiple ophthalmic products Once opened, store at room temperature $ Given 02/18/2022 8:20 PM MANAGER URGENT CARE 1 drop $ Given 02/17/2022 8:12 PM MANAGER URGENT CARE 1 drop $ Given 02/16/2022 11:55 PM MANAGER URGENT CARE 1 drop loratadine (Claritin) tablet 10 mg 10 mg, Oral, DAILY, First dose on Sat02/17/22 at 1130, Until Discontinued $ Given 02/19/2022 8:37 AM MANAGER URGENT CARE 10 mg $ Given 02/18/2022 8:59 AM MANAGER URGENT CARE 10 mg $ Given 02/17/2022 12:24 PM MANAGER URGENT CARE 10 mg ondansetron (disintegrating) (Zofran ODT) tablet 4 mg 4 mg, Oral, EVERY 6 HOURS PRN, Nausea/Vomiting, Starting on Sat02/15/22 at 0543, Until Sat02/19/22 at 1528, Dissolved orally on tongue Dissolved orally on tongue $ Given 02/17/2022 4:[address] 4 mg ondansetron (Zofran) injection 4 mg 4 mg, Intravenous, EVERY 6 HOURS PRN, Nausea/Vomiting, Starting on Jeanette 02/15/22 at 0543, Until 02/19/22 at 1528, Administer IV if patient is NPO, actively vomiting, or unable to swallow. oxyCODONE (immediate release) (Roxicodone) tablet 5 mg 5 mg, Oral, EVERY 4 HOURS PRN, Moderate Pain, Starting on Jeanette 02/15/22 at 0543, Until Sat02/19/22 at 1528, Patient preference for lesser PRN pain meds may be honored when the patient requests a less strong medication, a lower dose, or a less intrusive route of administration when the lesser drug, dose and route have been ordered for the patient. This patient request must be documented in the MAR. $ Given 02/18/2022 11:43 PM MANAGER U[facility] CARE 5 mg $ Given 02/18/2022 5:28 PM MANAGER URGENT CARE 5 mg $ Given 02/18/2022 1:48 PM MANAGER URGENT CARE 5 mg pantoprazole EC (Protonix) tablet 40 mg 40 mg, Oral, DAILY, First dose on Jeanette 02/15/22 at 1300, Until Discontinued, Do not crush, chew, or cut in half. $ Given 02/19/2022 8:38 AM MANAGER [facility] CARE 40 mg $ Given 02/18/2022 8:59 AM MANAGER URGENT CARE 40 mg $ Given 02/17/2022 8:54 AM MANAGER URGENT CARE 40 mg perflutren lipid microsphere (Definity) injection 0.5 mL 0.5 mL, Intravenous, INTRA-PROCEDURE MULTIPLE, 6 doses, Starting on Jeanette 02/15/22 at 1108, Until Sat02/19/22 at 1528, For Echo Procedure - Per Protocol Give slowly Shake well before using. $ Given 02/15/2022 11:12 AM MANAGER URG[facility] CARE 0.5 mL QUEtiapine (SEROquel) tablet 200 mg 200 mg, Oral, DAILY, First dose on Jeanette 02/15/22 at 0900, Until Discontinued $ Given 02/19/2022 8:37 AM MANAGER URG[facility] CARE 200 mg $ Given 02/18/2022 8:59 AM MANAGER URGENT CARE 200 mg $ Given 02/17/2022 8:54 AM MANAGER URGENT CARE 200 mg sodium chloride tablet 2 g 2 g, Oral, 3 TIMES DAILY WITH MEALS, First dose on Sat02/18/22 at 0900, Until Discontinued $ Given 02/19/2022 11:14 AM MANAGER [facility] CARE 2 g $ Given 02/19/2022 8:37 AM MANAGER URGENT CARE 2 g $ Given 02/18/2022 5:28 PM MANAGER URGENT CARE 2 g documented in this encounter Active and Recently Administered Medications Times are shown in MANAGER URG[facility] CARE. Scheduled Medication Order 02/17/2022 02/18/2022 02/19/2022 0.9% NaCl injection 3 mL(Linked Group 1) 3 mL, Intracatheter, EVERY 8 HOURS, First dose on Jeanette 02/15/22 at 0600, Until Discontinued, Flush peripheral IV catheter with 3 mL of normal saline every 8 hours. 0648 ($ Given - Provider: Tyson Amado RN)1532 ($ Given - Provider: Victoria Cormier RN)2354 ($ Given - Provider: Tyson Amado RN) 0529 ($ Given - Provider: Tyson Amado RN)1346 ($ Given - Provider: Victoria Cormier RN)2224 ($ Given - Provider: Tyson Amado, SANTI) 0539 ($ Given - Provider: Tyson Amado RN)1334 (Not Administered - Provider: Meet Quiroga, SANTI - Reason: Loss of Access) buPROPion XL 24hr (Wellbutrin-XL) tablet 150 mg 150 mg, Oral, DAILY, First dose on Jeanette 02/15/22 at 0900, Until Discontinued, Do not crush, chew, or cut in half. 0854 ($ Given - Provider: Victoria Cormier RN) 0859 ($ Given - Provider: Victoria Cormier RN) 0837 ($ Given - Provider: Meet Quiroga, SANTI) calcitriol (Rocaltrol) capsule 0.25 mcg 0.25 mcg, Oral, EVERY MON, WED AND FRI, First dose on Sat02/16/22 at 1700, Until Discontinued citalopram (CeleXA) tablet 20 mg 20 mg, Oral, DAILY, First dose on Jeanette 02/15/22 at 0900, Until Discontinued 0854 ($ Given - Provider: Victoria Cormier RN) 0859 ($ Given - Provider: Victoria Cormier RN) 0837 ($ Given - Provider: Meet Quiroga, SANTI) cosyntropin (Cortrosyn) injection 0.25 mg (COMPLETED) 0.25 mg, Intravenous, ONCE, 1 dose, On Sat02/19/22 at 0430, Do not administer until after baseline cortisol level has been drawn. IntraMUSCular injection reconstitute with 1 mL NS IntraVENous injection dilute in 2 to 5 mL of NS, inject over 2 min 0539 ($ Given - Provider: Tyson Amado RN) erythromycin (Romycin) ophthalmic ointment Right Eye, 4 TIMES DAILY, First dose on Sat02/16/22 at 1800, Until Discontinued, Please apply to right eye brow laceration area 0854 ($ Given - Provider: Victoria Cormier RN)1224 ($ Given - Provider: Victoria Cormier RN)1652 ($ Given - Provider: Victoria Cormier, SANTI)2011 ($ Given - Provider: Tyson Amado RN) 0858 ($ Given - Provider: Victoria Cormier RN)1347 ($ Given - Provider: Victoria Cormier RN)1729 ($ Given - Provider: Victoria Cormier, SANTI)2020 ($ Given - Provider: Tyson Amado RN) 0842 ($ Given - Provider: Meet Quiroga, SANTI)1346 ($ Given - Provider: Meet Quiroga, SANTI) escitalopram (Lexapro) tablet 20 mg 20 mg, Oral, DAILY, First dose on Sat02/15/22 at 0900, Until Discontinued 0854 ($ Given - Provider: Victoria Cormier RN) 0859 ($ Given - Provider: Victoria Cormier RN) 0838 ($ Given - Provider: Meet Quiroga, SANTI) furosemide (Lasix) tablet 10 mg 10 mg, Oral, DAILY, First dose on Sat02/15/22 at 0900, Until Discontinued 0854 ($ Given - Provider: Victoria Cormier RN) 0859 (Not Administered - Provider: Victoria Cormier RN - Reason: Refused-Patient - Comment: pt only takes it every other day, had it yesterday) 0838 ($ Given - Provider: Meet Quiroga RN) heparin injection 5,000 Units 5,000 Units, Subcutaneous, 3 TIMES DAILY, First dose on Sat02/15/22 at 1400, Until Discontinued 0854 ($ Given - Provider: Victoria Cormier RN)1450 ($ Given - Provider: Victoria Cormier RN)2012 ($ Given - Provider: Tyson Amado RN) 0859 ($ Given - Provider: Victoria Cormier RN)1346 ($ Given - Provider: Victoria Cormier RN)2019 ($ Given - Provider: Tyson Amado RN) 0835 ($ Given - Provider: Meet Quiroga, SANTI)1345 (Not Administered - Provider: Meet Quiroga RN - Reason: Refused-Patient) latanoprost (Xalatan) 0.005 % ophthalmic solution 1 drop 1 drop, Each Eye, AT BEDTIME, First dose on Sat02/16/22 at 2100, Until Discontinued, Allow at least 5 minutes between administration of multiple ophthalmic products Once opened, store at room temperature 2011 ($ Given - Provider: Tyson Amado RN) 2019 ($ Given - Provider: Tyson Amado RN) loratadine (Claritin) tablet 10 mg 10 mg, Oral, DAILY, First dose on 02/17/22 at 1130, Until Discontinued 1224 ($ Given - Provider: Victoria Cormier RN) 0859 ($ Given - Provider: Victoria Cormier RN) 0837 ($ Given - Provider: Meet Quiroga, SANTI) pantoprazole EC (Protonix) tablet 40 mg 40 mg, Oral, DAILY, First dose on Jeanette 02/15/22 at 1300, Until Discontinued, Do not crush, chew, or cut in half. 0854 ($ Given - Provider: Victoria Cormier RN) 0859 ($ Given - Provider: Victoria Cormier RN) 0838 ($ Given - Provider: Meet Quiroga, SANTI) perflutren lipid microsphere (Definity) injection 0.5 mL 0.5 mL, Intravenous, INTRA-PROCEDURE MULTIPLE, 6 doses, Starting on Jeanette 02/15/22 at 1108, Until Sat02/19/22 at 1528, For Echo Procedure - Per Protocol Give slowly Shake well before using. QUEtiapine (SEROquel) tablet 200 mg 200 mg, Oral, DAILY, First dose on Jeanette 02/15/22 at 0900, Until Discontinued 0854 ($ Given - Provider: Victoria Cormier RN) 0859 ($ Given - Provider: Victoria Cormier RN) 0837 ($ Given - Provider: Meet Quiroga, SANTI) sodium chloride tablet 2 g 2 g, Oral, 3 TIMES DAILY WITH MEALS, First dose on 02/18/22 at 0900, Until Discontinued 0859 ($ Given - Provider: Victoria Cormier RN)1230 ($ Given - Provider: Victoria Cormier RN)1728 ($ Given - Provider: Victoria Cormier RN) 0837 ($ Given - Provider: Meet Quiroga, SANTI)1114 ($ Given - Provider: Meet Quiroga RN) PRN Medication Order 02/17/2022 02/18/2022 02/19/2022 0.9% NaCl injection 1-10 mL(Linked Group 1) 1-10 mL, Intracatheter, PRN, Other, peripheral line flush, Starting on Jeanette 02/15/22 at 0543, Until 02/19/22 at 1528, Flush peripheral IV catheter with 1-10 mL of normal saline before and after medications and prn to clear blood from the line or to verify patency. acetaminophen (Tylenol) tablet 650 mg 650 mg, Oral, EVERY 6 HOURS PRN, Mild Pain, Starting on Jeanette 02/15/22 at 0543, Until 02/19/22 at 1528, Patient preference for lesser PRN pain meds may be honored when the patient requests a less strong medication, a lower dose, or a less intrusive route of administration when the lesser drug, dose and route have been ordered for the patient. This patient request must be documented in the MAR. 0856 ($ Given - Provider: Victoria Cormier RN) 0836 ($ Given - Provider: Meet Quiroga RN) artificial tears ophthalmic solution 1 drop 1 drop, Each Eye, EVERY 4 HOURS PRN, Dry Eyes, Starting on Jeanette 02/15/22 at 0543, Until 02/19/22 at 1528 benzonatate (Tessalon) capsule 100 mg 100 mg, Oral, EVERY 4 HOURS PRN, Cough, Starting on Jeanette 02/15/22 at 0543, Until Sat02/19/22 at 1528 dextrose 10 % IV bolus(Linked Group 2) 12.5 g, at 468.75 mL/hr, Intravenous, PRN, Other, Bedside Glucose less than 70 mg/dL -If NOT able to eat and/or NPO and with IV Access, Starting on Jeanette 02/15/22 at 0543, Until Sat02/19/22 at 1528, If NOT able to eat and/or NPO [...] OF HYPOGLYCEMIC EVENT. dextrose 10 % IV bolus(Linked Group 2) 25 g, at 937.5 mL/hr, Intravenous, PRN, Other, Bedside Glucose less than 70 mg/dL -If NOT able to eat and/or NPO and with IV Access, Starting on Jeanette 02/15/22 at 0543, Until Sat02/19/22 at 1528, If NOT able to eat and/or NPO [...] IV STAT NOTIFY PROVIDER OF HYPOGLYCEMIC EVENT. glucagon (Glucagen) injection 1 mg 1 mg, Subcutaneous, PRN, Bedside Glucose less than 70 mg/dL - If NOT able to eat and/or NPO and withOUT IV Access, Starting on Jeanette 02/15/22 at 0543, Until Sat02/19/22 at 1528, If NOT able to eat and/or NPO [...] not have swallowing difficulties, Starting on Jeanette 02/15/22 at 0543, Until Sat02/19/22 at 1528, If able to eat and can swallow [...] not have swallowing difficulties, Starting on Jeanette 02/15/22 at 0543, Until Sat02/19/22 at 1528, If able to eat and is better [...] not have swallowing difficulties, Starting on Jeanette 02/15/22 at 0543, Until 02/19/22 at 1528, If able to eat and does not [...] for choices). NOTIFY PROVIDER OF HYPOGLYCEMIC EVENT. ondansetron (disintegrating) (Zofran ODT) tablet 4 mg(Linked Group 3) 4 mg, Oral, EVERY 6 HOURS PRN, Nausea/Vomiting, Starting on Jeanette 02/15/22 at 0543, Until Sat02/19/22 at 1528, Dissolved orally on tongue Dissolved orally on tongue 165 ($ Given - Provider: Victoria Cormier RN) ondansetron (Zofran) injection 4 mg(Linked Group 3) 4 mg, Intravenous, EVERY 6 HOURS PRN, Nausea/Vomiting, Starting on Jeanette 02/15/22 at 0543, Until Sat02/19/22 at 1528, Administer IV if patient is NPO, actively vomiting, or unable to swallow. 165 (See Alternative - Provider: Victoria Cormier RN) oxyCODONE (immediate release) (Roxicodone) tablet 5 mg 5 mg, Oral, EVERY 4 HOURS PRN, Moderate Pain, Starting on Jeanette 02/15/22 at 0543, Until Sat02/19/22 at 1528, Patient preference for lesser PRN pain meds may be honored when the patient requests a less strong medication, a lower dose, or a less intrusive route of administration when the lesser drug, dose and route have been ordered for the patient. This patient request must be documented in the MAR. 1224 ($ Given - Provider: Victoria Cormier RN)1816 ($ Given - Provider: Victoria Cormier RN)2355 ($ Given - Provider: Tyson Amado, SANTI) 0859 ($ Given - Provider: Victoria Cormier, SANTI)1348 ($ Given - Provider: Victoria Cormier RN)1728 ($ Given - Provider: Victoria Cormier RN)2343 ($ Given - Provider: Tyson Amado, SANTI) saline nasal spray (Bent; Baby Banks) 0.65 % nasal spray 1 spray 1 spray, Each Nostril, PRN, Dry Nose, Starting on Jeanette 02/15/22 at 0543, Until Sat02/19/22 at 1528, No limitation on use. Linked Groups Order Group 1: SALINE LOCK, INSERT AND MAINTAIN (CANCELED) Routine, CONTINUOUS, Starting on Jeanette 02/15/22 at 0545, Until Specified, New collection, Task Completed: Yes And 0.9% NaCl injection 3 mLJump to med 3 mL, Intracatheter, EVERY 8 HOURS, First dose on Jeanette 02/15/22 at 0600, Until Discontinued, Flush peripheral IV catheter with 3 mL of normal saline every 8 hours. And 0.9% NaCl injection 1-10 mLJump to med 1-10 mL, Intracatheter, PRN, Other, peripheral line flush, Starting on Jeanette 02/15/22 at 0543, Until Sat02/19/22 at 1528, Flush peripheral IV catheter with 1-10 mL of normal saline before and after medications and prn to clear blood from the line or to verify patency. Group 2: dextrose 10 % IV bolusJump to med 12.5 g, at 468.75 mL/hr, Intravenous, PRN, Other, Bedside Glucose less than 70 mg/dL -If NOT able to eat and/or NPO and with IV Access, Starting on Jeanette 02/15/22 at 0543, Until Sat02/19/22 at 1528, If NOT able to eat and/or NPO [...] and with IV Access, Starting on Jeanette 02/15/22 at 0543, Until Sat02/19/22 at 1528, If NOT able to eat and/or NPO [...] STAT NOTIFY PROVIDER OF HYPOGLYCEMIC EVENT. Group 3: ondansetron (disintegrating) (Zofran ODT) tablet 4 mgJump to med 4 mg, Oral, EVERY 6 HOURS PRN, Nausea/Vomiting, Starting on Jeanette 02/15/22 at 0543, Until Sat02/19/22 at 1528, Dissolved orally on tongue Dissolved orally on tongue Or ondansetron (Zofran) injection 4 mgJump to med 4 mg, Intravenous, EVERY 6 HOURS PRN, Nausea/Vomiting, Starting on Jeanette 02/15/22 at 0543, Until Sat02/19/22 at 1528, Administer IV if patient is NPO, actively vomiting, or unable to swallow. documented in this encounter Additional Health Concerns Infection Onset Date Last Indicated Resolved Time COVID-19 Under Investigation 02/15/2022 02/15/2022 02/15/2022 3:59 PM MANAGER URGENT CARE documented as of this encounter
--- OUTSIDE RECORDS SUMMARY | 2024-04-11 03:32 | XMS_ITS | Encounter Summary ---
Author Organization [facility] Address [address] [place] [address] Care Team Providers Care Business Records Manager Name Role Phone Karrie Phillips MD Primary Care Provider [phone] Reason for Visit * Reason Comments Pain Neck Encounter Details Date Type Department Care Team (Late st Contact Info) Description 03/13/2022 1:00 PM GEOGRAPHIC INFORMATION SYSTEM ANALYST Office Visit [facility] - Orthopedics [address] [place] [address], [place] [address] Deon Taylor MD [address] [place] [address] [phone] Cervical myelopathy (HCC) (Primary Dx) Social History [...] - Inhaled Oxygen Concentration - - Weight 64.7 kg (142 lb 9.6 oz) 03/13/2022 12:52 PM GEOGRAPHIC INFORMATION SYSTEM ANALYST Height 154.9 cm (5' 1 ) 03/13/2022 12:52 PM GEOGRAPHIC INFORMATION SYSTEM ANALYST Body Mass Index 26.94 03/13/2022 12:52 PM GEOGRAPHIC INFORMATION SYSTEM ANALYST documented in this encounter Functional Status Functional [...] No 02/16/2022 documented as of this encounter Patient Instructions * Patient Instructions* Anabell Avendaño, SANTI - 03/13/2022 1:42 PM GEOGRAPHIC INFORMATION SYSTEM ANALYST Kandace Cole 03/13/2022 Follow up: Our office will contact you with a surgery date and provide you with more specific instructions for surgery once the date is confirmed. Radha is Dr. Taylor's judicial administrative assistant and is your gate person for scheduling your surgery. If you have not heard from her within a week, you may contact her at [phone]. We will help you schedule an appointment to see the anesthesia team for pre- operative evaluation. Please obtain medical clearance from your Primary Care Physician and cardiology clearance from yourcardiologist. Radha will receive the medical clearance letter from your physician(s) and obtain authorization from your insurance provider before your scheduled surgery date. Please contact her if you have any questions regarding clearance or insurance coverage for your surgery. SANTI Hung will contact you to schedule a pre-operative clinic appointment with Dr. Taylor within 1-2 weeks of your scheduled surgery date. Please contact Anabell Avendaño RN at or through [employer] if you have any furtherquestions or concerns. For medical emergencies please call [facility]. [facility]opaedic office contact information: [facility] ([facility]) [address] [place] [address], [place] [address] [facility] [address] [place] [address], [place] [address] March 13, 2022 To Whom It May Concern: Please use this letter to document that Kandace Candace Cole, : 1950, was in to see Deon Taylor MD on 03/13/2022. Thank you. Sincerely, Deon Taylor MD [facility] C[facility] 1L RAPHIC INFORMATION SYSTEM ANALYST documented in this encounter Progress Notes * Deon Taylor MD - 03/13/2022 1:55 PM CST I have seen and evaluated the patient and agree with the resident's assessment and plan as stated above. I have independently reviewed all imaging studies. Please reach out to my clinical nurse, Anabell Avendaño RN for and questions or concerns. 72-year-old female who I first saw in the hospital as a consult who returns today for follow-up regarding symptoms of cervical myelopathy. Namely she has issues with bilateral hand numbness and tingling which can be intermittent and is worse with elbow flexion. She also has radicular pain down the right upper extremity which will go over the shoulder and down her arm into her middle and index finger. CT demonstrates autofusion across most of her cervical spine except for at C5-6 where she has anonunion status post noninstrumented previous ACDF. MRI demonstrates central stenosis at this level. Given her myelopathy and findings of a cervical stenosis discussed surgical intervention in the form of a C5-6 decompression with posterior fusion likely from C4-C7 that we will possibly extend thisdown to T2 to prevent further kyphotic collapse below her fusion and to help correct some of her cervical thoracic kyphosis. Discussed the surgery in detail as well as the recovery period. We discussed the risks and benefits of the planned procedure including but not limited to bleeding with possible need for transfusion, infection, damage to surrounding structures including neural elements and nearby vascular structures, CSF leak, radiculitis, nerve palsy, malunion, nonunion, need for further surgery, blood clots, PE, stroke, IL, paralysis, . After we reviewed of the risks and benefits the patient wished to proceed with the surgery as planned. We will work on scheduling and getting the appropriate surgical clearances. Patient-Reported Satisfaction 03/13/2022 Current state satisfactory? No Prior treatment? Yes - surgery Function since surgery Slightly Improved Currently taking narcotics? No PROMIS Pain Interference 03/13/2022 PROMIS PI Score 67 (moderate) PROMIS Physical Function 03/13/2022 PROMIS PF Score 25 (severe dysfunction) Depression Screening 03/13/2022 PHQ-2 Score 3 (Further screening recommended) Deon Taylor MD RAPHIC INFORMATION SYSTEM ANALYST * Bria Iniguez MD - 03/13/2022 1:04 PM CST [facility] Orthopedic Spine Surgery Clinic Note Kandace Cole, 72 year old, female : 1950 CSN: [id number] Primary Care Physician: Karrie Phillips MD, MD Diagnosis/Procedures 1.) cervical stenosis HPI Date of this clinic visit: 03/13/2022 This is a 72 year old female with history of diagnosis above who is here for a follow-up clinic appointment. Patient reports neck pain that radiates down both arms, L > R. She states the pain radiates down to the middle, ring and small finger on the left and the entire hand on the right with associated numbness and tingling. She reports dropping objects frequently and has noticed her handwritin g has gotten sloppier. Ambulates with her grandson for assistance. She states PT has ordered her a walker. For pain control the patient has used Tylenol with some relief.They have not participated inPT specifically for her cervical spine. They have not received cervical steroid injections in the past. He has received lumbar BALBIR previously. Denies new numbness/paresthesias or bowel/bladder retenti on or incontinence. ROS otherwise negative. - PMH includes: fibromyalgia, HTN, HLD, CKD, DM - PSH is significant for: reports remote history of surgery for cervical stenosis in 2006 and for her low back in . Objective Ht 5' 1 (1.549 m) Wt 142 lb 9.6 oz (64.7 kg) PMHx Past Medical History: Diagnosis Date ??? Anemia ??? Diabetes ??? Disease of esophagus ??? Fibromyalgia ??? Glaucoma ??? HTN (hypertension) ??? Macular degeneration ??? Osteoarthritis ??? Raynaud disease ??? Ulnar neuropathy PSHx Past Surgical History: [...] SR 12hr (Wellbutrin-SR) 100 MG tablet ??? buPROPion XL 24hr (Wellbutrin-XL) 150 MG tablet ??? calcitriol (Rocaltrol) 0.25 MCG capsule ??? carvedilol (Coreg) 12.5 MG tablet ??? citalopram (CeleXA) 20 MG tablet ??? escitalopram (Lexapro) 20 MG tablet ??? Exenatide ER (Bydureon BCise) 2 MG/0.85ML AUIJ ??? furosemide (Lasix) 20 MG tablet ??? latanoprost (Xalatan) 0.005 % ophthalmic solution ??? lisinopril (Prinivil; Zestril) 20 MG tablet ??? loratadine (Claritin) 10 MG tablet ??? meclizine (Antivert) 25 MG tablet ??? OMEPRAZOLE PO ??? oxyCODONE, immediate release, (Roxicodone) 5 MG tablet ??? pantoprazole EC (Protonix) 40 MG tablet ??? pravastatin (Pravachol) 40 MG tablet ??? QUEtiapine (SEROquel) 200 MG tablet ??? saline nasal spray ([place]; Baby Carlstadt) 0.65 % nasal spray No current facility-administered [...] - Walks with short shuffling steps Imaging - Cervical spine XR reviewed. Demonstrate decreased disc space throughout the cervical spine with large anterior osteophyte formation at C5 and C6 - Prior cervical spine MRI and CT [...] needfor further surgery, blood clots, PE, stroke, IL, paralysis, . After we reviewed of the risks a nd benefits the patient wished to proceed with the surgery as planned. - Will plan to proceed with C4-7 PISF with C5-6 laminectomies - Follow up for surgery Bria Iniguez MD 03/13/2022 RAPHIC INFORMATION SYSTEM ANALYST documented in this encounter Plan of Treatment Upcoming Encounters Date Type Department Care Team (Late st Contact Info) Description 06/02/2024 1:45 PM GEOGRAPHIC INFORMATION SYSTEM ANALYST Office Visit [facility] - Orthopedics [address] [place] [address], [place] [address] Deon Taylor MD [address] [place] [id number] documented as of this encounter Visit Diagnoses Diagnosis Cervical myelopathy (HCC)- Primary Cervical spondylosis with myelopathy documented in this encounter Care Teams Business Records Manager Relationship Specialty Start Date End Date Karrie Phillips MD [address] [place] [id number] PCP - General 03/13/22 documented as of this encounter
--- OUTSIDE RECORDS SUMMARY | 2024-04-11 03:32 | XMS_ITS | Encounter Summary ---
Author Organization [facility] Address [address] [place] [address] Care Team Providers Care Genetic Technologist Name Role Phone Unavailable Primary Care Provider Unavailabl e Encounter Details Date Type Department Care Team (Late Contact Info) Description 12/07/2009 Orders Only [facility] [address], [address] [place] [address] Dionisio Ryan MD [address] [facility] [address] [place] [address] Degeneration of Cervical Intervertebral Disc Social History Tobacco Use Types Packs/Day Years Used Date Smoking Tobacco: Never Assessed Sex and Gender Information Value Date Recorded Sex Assigned at Not on file Gender Identity Not on file Sexual Orientation Not on file documented as of this encounter Plan of Treatment Upcoming Encounters Date Type Department Care Team (Late Contact Info) Description 06/02/2024 1:45 PM KITCHEN FOOD SERVER Office Visit [facility] [facility], [place] [id number] Deon Taylor MD [address] [place] [phone] documented as of this encounter Visit Diagnoses Diagnosis Degeneration of cervical intervertebral disc- Primary documented in this encounter
--- OUTSIDE RECORDS SUMMARY | 2024-04-11 03:32 | XMS_ITS | Encounter Summary ---
Author Organization [facility] Address [address] [place] [address] Care Team Providers Care Clothes Model Name Role Phone Karrie Phillips MD Primary Care Provider [phone] Encounter Details Date Type Department Care Team (Late st Contact Info) Description 03/12/2022 Orders Only [facility] [address] [place] [address], [place] [address] Deon Taylor MD [address] [place] [phone] Neck pain Social History Tobacco Use Types [...] Contact Info) Description 06/02/2024 1:45 PM NURSE PRACTITIONER PHYSICIAN ASSISTANT Office Visit [facility] [address] [place] [address], [facility] [place] [address] Deon Taylor MD [address] [place] [address] documented as of this encounter Results * XR CERVICAL SPINE 2 OR 3VW (03/13/2022 1:02 PM NURSE PRACTITIONER PHYSICIAN ASSISTANT) Anatomical Region Laterality Modality Spine Radiographic Vivian ging 03/13/2022 1:13 PM NURSE PRACTITIONER PHYSICIAN ASSISTANT Impressions 03/13/2022 1:20 PM NURSE PRACTITIONER PHYSICIAN ASSISTANT IMPRESSION: There is straightening of the cervical [...] 03/13/2022 1:20 PM Narrative 03/13/2022 1:20 PM NURSE PRACTITIONER PHYSICIAN ASSISTANT PROCEDURE: ??XR CERVICAL SPINE 2 OR 3VW, DATE/TIME OF EXAM: ??03/13/2022 1:03 PM, LOCATION ??[facility] INDICATION: M54.2: Neck pain ADDITIONAL CLINICAL INFORMATION: Ordering Provider Reason For Exam: ??neck pain COMPARISON: CT dated 02/15/2022. Procedure Note Alejo Ahuja MD - 03/13/2022 PROCEDURE: XR CERVICAL SPINE 2 OR 3VW, DATE/TIME OF EXAM: 21:03 PM, LOCATION [facility] INDICATION: M54.2: Neck pain ADDITIONAL CLINICAL INFORMATION: [...] in this encounter Visit Diagnoses Diagnosis Neck pain- Primary Cervicalgia Neck pain Cervicalgia documented in this encounter Care Teams Clothes Model Relationship Specialty Start Date End Date Karrie Phillips MD [address] [place] [address] PCP - General 03/13/22 documented as of this encounter
--- OUTSIDE RECORDS SUMMARY | 2024-04-11 03:32 | XMS_ITS | Encounter Summary ---
Author Organization [facility] Address [address] [facility] [place] [address] Care Team Providers Care Hoop Flaring Machine Operator Name Role Phone Unavailable Primary Care Provider Unavailabl e Reason for Visit * Reason Comments Transitional Care Encounter Details Date Type Department Care Team (Late st Contact Info) Description 02/20/2022 Transitional Care Transitional Care at [address] [address] Madhavi Vega, outside sales manager Social History Tobacco Use Types Packs/Day Years [...] Telephone Encounter - Madhavi Vega RN - 02/20/2022 11:17 AM CST RN 48 hour post discharge follow-up contact by telephone: Patient with recent IP discharge from [facility] on 02/19/22. RN attempted to reach Kandace Douglas today by telephone ([phone]) to complete 48 hour post discharge follow-up contact. RN was unable to reach Kandace at this time and this RN left voice message, encouraging patient to call this television writer back when available to provide update since last follow-up contact. RN will await call back from and will continue to follow Patient for [facility] clinic appointment. Call Duration: 1 min Madhavi Vega RN, BSN Product Support Representative, [facility] Office: [phone] 02/20/2022 R FEEDER documented in this encounter Plan of Treatment Upcoming Encounters Date Type Department Care Team (Late st Contact Info) Description 06/02/2024 1:45 PM PAPER FEEDER Office Visit [facility] [address] [place] [address], [facility] [place] [address] Deon Taylor MD [address] [place] [address] documented as of this encounter Visit Diagnoses Not on filedocumented in this encounter
--- OUTSIDE RECORDS SUMMARY | 2024-04-11 03:34 | XMS_ITS | Encounter Summary ---
Author Organization [facility] Address [facility] [place] [address] [place] [address] Care Team Providers Care Arabic Linguist Name Role Phone Md Generic Willa HANEY Primary Care Provider Unavailable Miah Haney MD Primary Care Provider Unavailable Md Generic Conversion Primary Care Provider Unavailable Encounter Details Date Type Department Care Team (Late st Contact Info) Description 01/08/2008 Abstract [facility] EKG [address] [facility] [place] [address] Petar Barber MD [facility] [address] [address] Social History Tobacco Use Types Packs/Day Years Used Date Smoking Tobacco: Never Assessed Comments Unknown Sex and Gender Information Value Date Recorded Sex Assigned at Not on file Legal Sex Female 8:30 PM CDT Gender Identity Not on file Sexual Orientation Not on file documented as of this encounter Plan of Treatment Not on file documented as of this encounter Visit Diagnoses Not on filedocumented in this encounter Care Teams Arabic Linguist Relationship Specialty Start Date End Date Miah Haney MD PCP - General 12/31/12 Miah Haney MD PCP - General 10/13/12 Miah Haney MD PCP - General 09/15/10 documented as of this encounter
--- OUTSIDE RECORDS SUMMARY | 2024-04-11 03:34 | XMS_ITS | Encounter Summary ---
Author Organization [facility] Address [facility] [facility] [place] [address] [place] [address] Care Team Providers Care Solutions Development Analyst Name Role Phone Md Generic Willa HANEY Primary Care Provider Unavailable Miah Haney MD Primary Care Provider Unavailable Md Generic Willa HANEY Primary Care Provider Unavailable Encounter Details Date Type Department Care Team (Late st Contact Info) Description 10/21/2008 Abstract [facility] [place] [address] Adi Vieira MD [address] [place] [address] Social History Tobacco Use Types Packs/Day Years [...] on filedocumented in this encounter Care Teams Solutions Development Analyst Relationship Specialty Start Date End Date Miah Haney MD PCP - General 12/31/12 Miah Haney MD PCP - General 10/13/12 Miah Haney MD PCP - General 09/15/10 documented as of this encounter
--- OUTSIDE RECORDS SUMMARY | 2024-04-11 03:34 | XMS_ITS | Encounter Summary ---
Author Organization [facility] Address [facility] [facility] [place] [address] [place] [address] Care Team Providers Care Scooping Machine Tender Name Role Phone Md Generic Willa HANEY Primary Care Provider Unavailable Miah Haney MD Primary Care Provider Unavailable Md Generic Willa HANEY Primary Care Provider Unavailable Encounter Details Date Type Department Care Team (Late st Contact Info) Description 09/10/2008 Abstract [facility] [place] [address] Adi Vieira MD [address] [place] [address] Social History Tobacco Use Types Packs/Day Years [...] on filedocumented in this encounter Care Teams Scooping Machine Tender Relationship Specialty Start Date End Date Miah Haney MD PCP - General 12/31/12 Miah Haney MD PCP - General 10/13/12 Miah Haney MD PCP - General 09/15/10 documented as of this encounter
--- OUTSIDE RECORDS SUMMARY | 2024-04-11 03:34 | XMS_ITS | Encounter Summary ---
Author Organization [facility] Address [facility] [place] [address] [place] [address] Care Team Providers Care Caretaker Resort Name Role Phone None, Provider MD Primary Care Provider Unavaila ble Reason for Referral * (Routine) - Closed Specialty Diagnoses / Procedures Referred By Contac t Referred To Contact Procedures LACERATION REPAIR Radha Salcedo MD [address] [place] [address] Phone: tel: fax: Referral ID Status Reason Start Date Expiration Date Visits Re quested Visits Authorized [id number] Closed 05/27/2022 05/27/2023 1 1 ENTICE TECHNICIAN * Imaging (Emergency) - Closed Specialty Diagnoses / Procedures Referred By Contac t Referred To Contact RADIOLOGY Procedures CT CERV SPINE WO Radha Cortes MD [address] [place] [address] Phone: tel: fax: Referral ID Status Reason Start Date Expiration Date Visits Re quested Visits Authorized [id number] Closed 05/27/2022 05/27/2023 1 1 ENTICE TECHNICIAN * Imaging (Emergency) - Closed Specialty Diagnoses / Procedures Referred By Contac t Referred To Contact RADIOLOGY Procedures CT HEAD WO Radha Cortes MD [address] [place] [address] Phone: tel: fax: Referral ID Status Reason Start Date Expiration Date Visits Re quested Visits Authorized [id number] Closed 05/27/2022 05/27/2023 1 1 ENTICE TECHNICIAN Reason for Visit * Reason Comments Fall Head Injury Arm Pain Encounter Details Date Type Department Care Team (Late st Contact Info) Description 05/27/2022 1:17 PM APPRENTICE TECHNICIAN - 05/27/2022 4:30 PM APPRENTICE TECHNICIAN Emergency [facility] [place] [address] Radha Salcedo MD 1 [facility] [place] [address] Fall; Head Injury; Arm Pain Discharge Disposition: Home or Self Care (Routine Discharge) Social History Tobacco Use Types Packs/Day Years Used Date Smoking Tobacco: Never Assessed Comments Unknown Sex and Gender Information Value Date Recorded Sex Assigned at Not on file Legal Sex Female 8:30 PM CDT Gender Identity Not on file Sexual Orientation Not on file COVID-19 Exposure Response Date Recorded In the last 10 days, have yo u been in contact with someone who was confirmed or suspected to have Coronavirus/COVID-19? No / Unsure 05/27/2022 1:34 PM APPRENTICE TECHNICIAN documented as of this encounter Last Filed Vital Signs Vital Sign Reading Time Taken Comments Blood Pressure 102/68 05/27/2022 1:18 PM APPRENTICE TECHNICIAN Pulse 70 05/27/2022 1:18 PM APPRENTICE TECHNICIAN Temperature 36.8 ??C (98.3 ??F) 05/27/2022 1:18 PM CS T Respiratory Rate 18 05/27/2022 1:18 PM APPRENTICE TECHNICIAN Oxygen Saturation 100% 05/27/2022 1:18 PM APPRENTICE TECHNICIAN Inhaled Oxygen Concentration - - Weight 64.7 kg (142 lb 10.2 oz) 05/27/2022 1:18 PM APPRENTICE TECHNICIAN Height 154.9 cm (5' 1 ) 05/27/2022 1:18 PM APPRENTICE TECHNICIAN Body Mass Index 26.95 05/27/2022 1:18 PM APPRENTICE TECHNICIAN documented in this encounter Discharge Instructions * Attachments The following attachments cannot be sent through Care Everywhere. * Laceration Repair With [place] Discharge Instructions (Czech) * Wound Care (Czech) * Laceration Repair (Czech) * Joint Pain (Czech) * Minor Head Injury (Czech) documented in this encounter ED Notes * Renetta Clarke RN - 05/27/2022 4:27 PM CST Provider discussed today's findings with the patient and family. The patient has been given information regarding their treatment, follow up and concerning symptoms for which they should seek urgent or emergent attention. I have expressed the the importance of seeking attention should there be any new, or worsening symptoms or persistence of their condition. Patient verbalized understanding of the discharge instructions. ENTICE TECHNICIAN * Renetta Clarke RN - 05/27/2022 3:14 PM CST Pt's hair on back of the head is matted with blood at this time. Hair and skin cleaned with normal saline per doctors request. Wound now visible. Provider notified for re-evaluation of head wound nowthat it is visible ENTICE TECHNICIAN * Radha Salcedo MD - 05/27/2022 1:50 PM CSTAssociated Order(s): Lac Repair Chief Complaint Chief Complaint Patient presents with ??? Fall ??? Head Injury ??? 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 Denies seizures and vomiting. Head Injury Associated symptoms: headache Associated symptoms: no seizures and no vomiting Arm Pain Associated symptoms: headaches Associated symptoms: no fever and no vomiting 72-year-old female with a pmh of a fall. Patient reports she fell in a parking lot hitting the backof her head on the asphalt. She complains of a wound to the back of her head and pain to her bilateral shoulders radiating to her hand (more severe to the right wrist). Patient states she is scheduled for spine surgery on June 04, 2022. No LOC, no focal weakness, no seizures. No vomiting. Medical History ALLERGIES: Allergies Allergen Reactions ??? Sulfa Antibiotics Hives MEDICATIONS: Prior to Admission medications Not on File PAST MEDICAL HISTORY: No past medical history on file. PAST SURGICAL HISTORY: No past surgical history on file. FAMILY HISTORY: No family history on file. SOCIAL HISTORY: Review of Systems Review of Systems Constitutional: Negative for fever. Gastrointestinal: Negative for vomiting. Skin: Positive for wound. Neurological: Positive for headaches. Negative for seizures. Physical Exam Filed Vitals: 05/27/22 1318 BP: 102/68 Pulse: 70 Resp: 18 Temp: 98.3 ??F (36.8 ??C) SpO2: 100% Weight: 64.7 kg (142 lb 10.2 oz) Height: 5' 1 (1.549 m) Physical Exam Vitals and nursing note reviewed. HENT: Head: Comments: Scalp laceration 3 scalp lacerations each is 1 cm Pulmonary: Effort: Pulmonary effort is normal. Abdominal: Palpations: Abdomen is soft. Tenderness: There is no abdominal tenderness. Musculoskeletal: Comments: Bilateral shoulder tenderness. Right wrist tenderness. No snuffbox tenderness. Neurovascularly intact bilateral upper and lower extremities. Moving all extremities. Neurological: Mental Status: She is alert and oriented to person, place, and time. Mental status is at baseline. Diagnostic Studies / Procedures ELECTROCARDIOGRAMS: No results found for this visit on 05/27/22. LABORATORY STUDIES: No results found for this visit on 05/27/22. IMAGING STUDIES XR WRIST LT MIN 3V Final Result by User, [id number] (05/27 1447) EXAMINATION: XR WRIST LT MIN 3V HISTORY: Pain after fall DATE: 05/27/2022 2:30 PM COMPARISON: None TECHNIQUE: PA, oblique and lateral views of the left wrist. 3 images. FINDINGS: No acute fracture identified. No dislocation. Positive ulnar variance. There is mild widening of the scapholunate interval at 4 mm suggesting injury to the scapholunate ligament. This is age-indeterminate. There is joint space narrowing at the radiocarpal articulation with subchondral cystic change in the distal radius. There is severe osteoarthritis in the traversing the joint. IMPRESSION: 1. No acute fracture identified. 2. Mild widening of the scapholunate interval. 3. Other chronic or nonurgent findings as described above. Referred By: Interpreted By: Jose Alberto Reeves MD, 05/27/2022 2:38 PM XR SHOULDER LT 3V Final Result by User, [id number] (05/27 2854) EXAMINATION: XR SHOULDER LT 3V HISTORY: Pain after injury DATE: 05/27/2022 2:04 PM COMPARISON: None TECHNIQUE: AP internal rotation, AP external rotation and scapular Y views of the left shoulder. 3 images. FINDINGS: Both AP views are essentially the same orientation. No acute fracture identified. No evidence of dislocation. I riding humeral head suggesting chronic rotator cuff disease. Relatively mild degenerative changes of the AC joint and glenohumeral joint. Small tendon repair anchors in the humeral head. IMPRESSION: 1. No acute osseous abnormality identified. 2. Other chronic or nonurgent findings as described above. Referred By: Interpreted By: Jose Alberto Reeves MD, 05/27/2022 2:40 PM XR SHOULDER RT 3V Final Result by User, [id number] (05/27 8336) Examination: XR SHOULDER RT 3V Exam time: 05/27/2022 2:04 PM Indication: Pain after fall. Comparison: None Findings: 3 views of the right shoulder were obtained. There is osteolysis of the distal clavicle. There is a high riding humeral head, evidence for underlying rotator cuff disease. There is a potential very subtle linear lucency in the humeral neck seen on the AP view. There is no glenohumeral dislocation. IMPRESSION: 1. There is a high riding humeral head, evidence for underlying rotator cuff disease. 2. There is osteolysis of the distal clavicle, presumably related to old injury or postsurgical change. 3. There is a potential very subtle linear lucency in the humeral neck seen on the AP view. A nondisplaced fracture is not excluded. Correlation to site of pain is recommended. If the patient's pain does not improve, short-term radiographic follow-up in 7 days is recommended for further evaluation. Referred By: Interpreted By: Shadi Franklin MD, 05/27/2022 2:39 PM XR WRIST RT MIN 3V Final Result by User, [id number] (05/27 1746) IMAGING STUDIES: XR WRIST RT MIN 3V DATE: 05/27/2022 2:04 PM COMPARISON: No comparisons. CLINICAL HISTORY: fall. Pain IMPRESSION: 1. There is no evidence of acute fracture, dislocation, or osseous erosion. No gross abnormality of the navicular bone. 2. Mild degenerative change of the radiocarpal articulation.. Mild overlying soft tissue swelling. Chondrocalcinosis..No radiopaque foreign bodies.. 3. Advanced degenerative change of the first carpal/metacarpal articulation. Osteopenia limits exam. 3. If pain persists over the navicular bone, follow-up in 3-5 days with plain films or MRI may be of benefit. Referred By: Interpreted By: Daniel Carlson MD, 05/27/2022 2:43 PM XR HUMERUS RT MIN 2V Final Result by User, [id number] (05/27 6260) Examination: XR HUMERUS RT MIN 2V Exam time: 05/27/2022 2:04 PM Indication: Pain after fall Comparison: None Findings: 2 views of the right humerus were obtained. The proximal humerus is better seen on the shoulder radiograph. The mid and distal humerus demonstrate no evidence for fracture. No osseous destruction. IMPRESSION: No acute abnormality of the mid and distal humerus. Referred By: Interpreted By: Shadi Franklin MD, 05/27/2022 2:41 PM XR HIP JUAN 2V+PELVIS Final Result by User, [id number] (05/27 3758) Date: 05/27/2022 2:04 PM Exam: XR HIP JUAN 2V+PELVIS Comparison: No comparisons. Technique: Frontal view of the pelvis and hips. Frontal and lateral view of each hip. History: Status post fall. Pain. . Findings: There is no fracture nor dislocation of either hip. There is minimal arthritis in the hips. There are old corticated avulsions adjacent to the left greater tuberosity. The pubic rami and iliac wings are intact. The SI joints appear normal. Partially visualized is considerable degenerative changes in the lower lumbar spine. There is no soft tissue abnormality Impression: No acute osseous abnormality. Ordered By: RADHA SALCEDO Interpreted By: Sky Wayne Jr, MD, 05/27/2022 2:[address] HEAD WO CON Final Result by User, [id number] (05/27 1414) CT HEAD WITHOUT CONTRAST Exam date: 05/27/2022 2:12 PM Clinical history: Injury, pain Technique: 3 mm collimated axial images of the head were obtained without contrast. A dose lowering technique was used for this procedure, which may include, but is not limited to, dose reduction technique, automated exposure control, the use of iterative reconstruction, and ALARA (As Low As Reasonably Achievable) / Image Gently techniques. Comparison: reviewed without prior studies available for comparison. FINDINGS: Images of the head demonstrate no evidence of acute or chronic intracranial hemorrhage. No masses or mass effects are seen. The ventricles and sulci are symmetric and appear normal. There is normal lomeli-white differentiation throughout. There is no evidence of midline shift. Bone window images reveal fluid opacification of the left maxillary sinus. There is no evidence of fracture. IMPRESSION: Left maxillary sinusitis. No evidence of acute intracranial injury Ordered By: RADHA SALCEDO Interpreted By: Deni Martínez MD, 05/27/2022 2:[address] CERV SPINE WO CON Final Result by User, [id number] (05/27 1417) CT CERVICAL SPINE WITHOUT CONTRAST CLINICAL HISTORY: Injury from fall TECHNIQUE: Dynamic helical images of the cervical spine were obtained in the axial plane without contrast. Sagittal and coronal views were reconstructed from the axial data set. A dose lowering technique was used for this procedure, which may include, but is not limited to, dose reduction technique, automated exposure control, the use of iterative reconstruction, and ALARA (As Low As Reasonably Achievable) / Image Gently techniques. Comparison: No prior studies are available for comparison. FINDINGS: The obtained images demonstrate no evidence of acute fracture or subluxation. The craniocervical junction is intact. Degenerative changes are noted surrounding the dens. The vertebral body heights are symmetric and grossly normal throughout. There is complete loss of intervertebral disc height at the C3-C4, C4-C5, C5-C6, and C6-C7 levels. This is most significant at C5-C6 where there are bulky anterior and posterior osteophytes as well as cystic changes within the vertebral bodies adjacent to the endplates. Bulky osteophytes are also noted arising from the posterior aspect of the C7-T1 level. These result in [id number] central cervical stenosis. The facets are normally aligned but exhibit prominent sclerosis. The spinous processes appear normal Soft tissue windows reveal no paraspinal fluid collections to be evident evident. The visualized portion of the airway and esophagus are within normal limits. No adenopathy is seen within the neck. The lung apices are clear. IMPRESSION: 1.Extensive degenerative changes. No evidence of acute injury Ordered By: RADHA SALCEDO Interpreted By: Deni Martínez MD, 05/27/2022 2:13 PM Lac Repair Date/Time: 05/27/2022 6:08 PM Performed by: Radha Salcedo MD Authorized by: Radha Salcedo MD Consent: Consent obtained: Verbal Consent given by: Patient Risks discussed: Infection, pain, need for additional repair, poor cosmetic result and poor wound healing [place] protocol: Patient identity confirmed: Verbally with patient, arm band and hospital- assigned identification number Laceration details: Location: Scalp Length (cm): 1 Depth (mm): 1 Treatment: Area cleansed with: Saline Skin repair: Repair method: [place] Number of mahesh: 1 Repair type: Repair type: Simple Post-procedure details: Dressing: Open (no dressing) Procedure completion: Tolerated well, no immediate complications Date/Time: 05/27/2022 6:09 PM Performed by: Radha Salcedo MD Authorized by: Radha Salcedo MD Consent: Consent obtained: Verbal Consent given by: Patient Risks discussed: Infection, pain, need for additional repair, poor cosmetic result and poor wound healing [place] protocol: Patient identity confirmed: Verbally with patient, arm band and hospital- assigned identification number Laceration details: Location: Scalp Length (cm): 1 Depth (mm): 1 Treatment: Area cleansed with: Saline Skin repair: Repair method: [place] Number of mahesh: 1 Repair type: Repair type: Simple Post-procedure details: Dressing: Open (no dressing) Procedure completion: Tolerated well, no immediate complications Date/Time: 05/27/2022 6:10 PM Performed by: Radha Salcedo MD Authorized by: Radha Salcedo MD Consent: Consent obtained: Verbal Consent given by: Patient Risks discussed: Infection, pain, need for additional repair, poor cosmetic result and poor wound healing [place] protocol: Patient identity confirmed: Verbally with patient, arm band and hospital- assigned identification number Laceration details: Location: Scalp Length (cm): 1 Depth (mm): 1 Treatment: Area cleansed with: Saline Skin repair: Repair method: [place] Number of mahesh: 1 Repair type: Repair type: Simple Post-procedure details: Dressing: Open (no dressing) Procedure completion: Tolerated well, no immediate complications ED Course / Medical Decision Making Medical Decision Making Patient presenting status post fall. She has scalp laceration. She reports headache and bilateral shoulder pain. Will get CT brain, CT C-spine. We will get bilateral shoulder x-rays. We will get right wrist x-ray. We will get hip x-ray. We will get left wrist x-ray. Give pain meds. Will reassess CT brain showed no bleeding CT C-spine showed no fracture X-ray showed no fracture Scalp laceration stapled Tetanus updated Patient was told the mahesh need to be removed in 7 to 10 days We will discharge patient to follow-up with her PCP and to have her mahesh removed in 7-10 days Amount and/or Complexity of Data Reviewed Independent Historian: EMS Details: History obtained by EMS and family Radiology: ordered. Decision-making details documented in ED Course. Risk Prescription drug management. Decision regarding hospitalization. Clinical Impression Head trauma (Primary) Scalp laceration Shoulder pain Wrist pain Disposition: Discharge I, Barbara Davidson, acting as a scribe, am personally taking down the notes in the presence of Dr. Radha Salcedo MD. Take no action on this note until reviewed and authenticated by the physician. Radha Salcedo MD 05/27/221810 ENTICE TECHNICIAN * Renetta Clarke RN - 05/27/2022 1:42 PM CST Pt's shirt cut off of pt at this time ENTICE TECHNICIAN * Renetta Clarke RN - 05/27/2022 1:22 PM CST Pt to ED via EMS from [place], following a fall. Pt states she lost her balance whilein the parking lot, and fell backwards. Pt hit the back of her head and has a large hematoma and bleeding noted. Bleeding control upon arrival. Pt also complaining of neck pain, c-collar in place upon arrival. Pt complaining of bilateral arm pain. Pt states she's unsure if she braced herself when she fell or not. Pt denies LOC. Pt c/o of nausea and has had several episodes of emesis en route to hospital. ENTICE TECHNICIAN * Olimpia Munoz RN - 05/27/2022 1:17 PM CST Bed: 18 Expected date: Expected time: Means of arrival: Comments: [id number] ENTICE TECHNICIAN documented in this encounter Plan of Treatment Not on file documented as of this encounter Procedures Procedure Name Priority Date/Time Associated Diagnosis Comments LACERATION REPAIR Routine 05/27/2022 6:0 8 PM APPRENTICE TECHNICIAN XR WRIST LT MIN 3V STAT 05/27/2022 2: 38 PM APPRENTICE TECHNICIAN XR SHOULDER RT 3V STAT 05/27/2022 2:3 6 PM APPRENTICE TECHNICIAN XR SHOULDER LT 3V STAT 05/27/2022 2:3 6 PM APPRENTICE TECHNICIAN XR WRIST RT MIN 3V STAT 05/27/2022 2: 36 PM APPRENTICE TECHNICIAN XR HUMERUS RT MIN 2V STAT 05/27/2022 2:36 PM APPRENTICE TECHNICIAN XR HIP JUAN 2V+PELVIS STAT 05/27/2022 2:[address] HEAD WO CON STAT 05/27/2022 2:[address] CERV SPINE WO CON STAT 05/27/2022 2:08 PM APPRENTICE TECHNICIAN documented in this encounter Results * Lac Repair (05/27/2022 6:08 PM APPRENTICE TECHNICIAN) Radha Cornejo MD - 05/27/2022 6:08 PM APPRENTICE TECHNICIAN Radha Salcedo MD ? 05/27/2022 ??6:11 PM Lac Repair Date/Time: 05/27/2022 6:08 PM Performed by: Radha Salcedo MD Authorized by: Radha Salcedo MD Consent: ??Consent obtained: ??Verbal ??Consent given by: ??Patient ??Risks discussed: ??Infection, pain, need for additional repair, poor cosmetic result and poor wound healing [place] protocol: ??Patient identity confirmed: ??Verbally with patient, arm band and hospital-assigned identification number Laceration details: ??Location: ??Scalp ??Length (cm): ??1 ??Depth (mm): ??1 Treatment: ??Area cleansed with: ??Saline Skin repair: ??Repair method: ??[place] ??Number of mahesh: ??1 Repair type: ??Repair type: ??Simple Post-procedure details: ??Dressing: ??Open (no dressing) ??Procedure completion: ??Tolerated well, no immediate complications us Radha Salcedo MD PROCEDURE/MINOR SURGICAL ORDERA BLES Final Result * XR WRIST LT MIN 3V (05/27/2022 2:38 PM APPRENTICE TECHNICIAN) Anatomical Region Laterality Modality Wrist Radiographic Vivian ging 05/27/2022 2:38 PM APPRENTICE TECHNICIAN Impressions 05/27/2022 2:40 PM APPRENTICE TECHNICIAN IMPRESSION: 1. ??No acute fracture identified. 2. ??Mild widening of the scapholunate interval. 3. ??Other chronic or nonurgent findings as described above. Referred By: ?? Interpreted By: Jose Alberto Reeves MD, 05/27/2022 2:38 PM Narrative 05/27/2022 2:40 PM APPRENTICE TECHNICIAN EXAMINATION: XR WRIST LT MIN 3V HISTORY: Pain after fall DATE: 05/27/2022 2:30 PM COMPARISON: None TECHNIQUE: PA, oblique and lateral views of the left wrist. ??3 images. FINDINGS: No acute fracture identified. ??No dislocation. ??Positive ulnar variance. ??There is mild widening of the scapholunate interval at 4 mm suggesting injury to the scapholunate ligament. ??This is age-indeterminate. ??There is joint space narrowing at the radiocarpal articulation with subchondral cystic change in the distal radius. ??There is severe osteoarthritis in the traversing the joint. Procedure Note Jose Albreto Reeves MD - 05/27/2022 EXAMINATION: XR WRIST LT MIN 3V HISTORY: Pain after fall DATE: 05/27/2022 2:30 PM COMPARISON: None TECHNIQUE: PA, oblique and lateral views of the left wrist. 3 images. FINDINGS: No acute fracture identified. No dislocation. Positive ulnarvariance. There is mild widening of the scapholunate interval at 4 mmsuggesting injury to the scapholunate ligament. This isage-indeterminate. There is joint space narrowing at the radiocarpalarticulation with subchondral cystic change in the distal radius. Thereis severe osteoarthritis in the traversing the joint. IMPRESSION: 1. No acute fracture identified. 2. Mild widening of the scapholunate interval. 3. Other chronic or nonurgent findings as described above. Referred By: Interpreted By: Jose Alberto Reeves MD, 05/27/2022 2:38 PM Radha Salcedo MD GENERAL IMAGING Final Result * XR HIP JUAN 2V+PELVIS (05/27/2022 2:36 PM APPRENTICE TECHNICIAN) Anatomical Region Laterality Modality Hip, Pelvis Radiographic Vivian ging 05/27/2022 2:13 PM APPRENTICE TECHNICIAN Impressions 05/27/2022 2:15 PM APPRENTICE TECHNICIAN Impression: No acute osseous abnormality. Ordered By: RADHA SALCEDO Interpreted By: Sky Wayne Jr, MD, 05/27/2022 2:13 PM Narrative 05/27/2022 2:15 PM APPRENTICE TECHNICIAN Date: 05/27/2022 2:04 PM Exam: XR HIP JUAN 2V+PELVIS Comparison: No comparisons. Technique: Frontal view of the pelvis and hips. Frontal and lateral view of each hip. History: Status post fall. Pain. . Findings: There is no fracture nor dislocation of either hip. There is minimal arthritis in the hips. There are old corticated avulsions adjacent to the left greater tuberosity. The pubic rami and iliac wings are intact. The SI joints appear normal. Partially visualized is considerable degenerative changes in the lower lumbar spine. There is no soft tissue abnormality Procedure Note Sky Wayne MD - 05/27/2022 Date: 05/27/2022 2:04 PM Exam: XR HIP JUAN 2V+PELVIS Comparison: No comparisons. Technique: Frontal view of the pelvis and hips. Frontal and lateral viewof each hip. History: Status post fall. Pain. . Findings: There is no fracture nor dislocation of either hip. There isminimal arthritis in the hips. There are old corticated avulsions adjacentto the left greater tuberosity. The pubic rami and iliac wings are intact.The SI joints appear normal. Partially visualized is considerabledegenerative changes in the lower lumbar spine. There is no soft tissueabnormality Impression: No acute osseous abnormality. Ordered By: RADHA SALCEDO Interpreted By: Sky Wayne Jr, MD, 05/27/2022 2:13 PM us Radha Salcedo MD GENERAL IMAGING Final Result * XR HUMERUS RT MIN 2V (05/27/2022 2:36 PM APPRENTICE TECHNICIAN) Anatomical Region Laterality Modality Humerus Radiographic Vivian ging 05/27/2022 2:41 PM APPRENTICE TECHNICIAN Impressions 05/27/2022 2:45 PM APPRENTICE TECHNICIAN IMPRESSION: No acute abnormality of the mid and distal humerus. Referred By: ?? Interpreted By: Shadi Franklin MD, 05/27/2022 2:41 PM Narrative 05/27/2022 2:45 PM APPRENTICE TECHNICIAN Examination: XR HUMERUS RT MIN 2V Exam time: 05/27/2022 2:04 PM Indication: Pain after fall Comparison: None Findings: 2 views of the right humerus were obtained. ??The proximal humerus is better seen on the shoulder radiograph. ??The mid and distal humerus demonstrate no evidence for fracture. ??No osseous destruction. Procedure Note Shadi Frankiln MD - 05/27/2022 Examination: XR HUMERUS RT MIN 2V Exam time: 05/27/2022 2:04 PM Indication: Pain after fall Comparison: None Findings: 2 views of the right humerus were obtained. The proximalhumerus is better seen on the shoulder radiograph. The mid and distalhumerus demonstrate no evidence for fracture. No osseous destruction. IMPRESSION: No acute abnormality of the mid and distal humerus. Referred By: Interpreted By: Shadi Franklin MD, 05/27/2022 2:41 PM Radha Salcedo MD GENERAL IMAGING Final Result * XR WRIST RT MIN 3V (05/27/2022 2:36 PM APPRENTICE TECHNICIAN) Anatomical Region Laterality Modality Wrist Radiographic Vivian ging 05/27/2022 2:43 PM APPRENTICE TECHNICIAN Impressions 05/27/2022 2:44 PM APPRENTICE TECHNICIAN IMPRESSION: 1. ??There is no evidence of acute fracture, dislocation, or osseous erosion. No gross abnormality of the navicular bone. 2. ??Mild degenerative change of the radiocarpal articulation.. Mild overlying soft tissue swelling. ??Chondrocalcinosis..No radiopaque foreign bodies.. 3. ??Advanced degenerative change of the first carpal/metacarpal articulation. ??Osteopenia limits exam. 3. ?? If pain persists over the navicular bone, follow-up in 3-5 days with plain films or MRI may be of benefit. Referred By: ?? Interpreted By: Daniel Carlson MD, 05/27/2022 2:43 PM Narrative 05/27/2022 2:44 PM APPRENTICE TECHNICIAN IMAGING STUDIES: ??XR WRIST RT MIN 3V ? DATE: ??05/27/2022 2:04 PM COMPARISON: ??No comparisons. CLINICAL HISTORY: ??fall. ??Pain Procedure Note Daniel Carlson MD - 05/27/2022 IMAGING STUDIES: XR WRIST RT MIN 3V DATE: 05/27/2022 2:04 PM COMPARISON: No comparisons. CLINICAL HISTORY: fall. Pain IMPRESSION: 1. There is no evidence of acute fracture, dislocation, or osseouserosion. No gross abnormality of the navicular bone. 2. Mild degenerative change of the radiocarpal articulation.. Mildoverlying soft tissue swelling. Chondrocalcinosis..No radiopaque foreignbodies.. 3. Advanced degenerative change of the first carpal/metacarpalarticulation. Osteopenia limits exam. 3. If pain persists over the navicular bone, follow-up in 3-5 days withplain films or MRI may be of benefit. Referred By: Interpreted By: Daniel Carlson MD, 05/27/2022 2:43 PM Radha Salcedo MD GENERAL IMAGING Final Result * XR SHOULDER RT 3V (05/27/2022 2:36 PM APPRENTICE TECHNICIAN) Anatomical Region Laterality Modality Shoulder Radiographic Vivian ging 05/27/2022 2:39 PM APPRENTICE TECHNICIAN Impressions 05/27/2022 2:44 PM APPRENTICE TECHNICIAN IMPRESSION: 1. ??There is a high riding humeral head, evidence for underlying rotator cuff disease. 2. ??There is osteolysis of the distal clavicle, presumably related to old injury or postsurgical change. 3. ??There is a potential very subtle linear lucency in the humeral neck seen on the AP view. ??A nondisplaced fracture is not excluded. ??Correlation to site of pain is recommended. ??If the patient's pain does not improve, short-term radiographic follow-up in 7 days is recommended for further evaluation. Referred By: ?? Interpreted By: Shadi Franklin MD, 05/27/2022 2:39 PM Narrative 05/27/2022 2:44 PM APPRENTICE TECHNICIAN Examination: XR SHOULDER RT 3V Exam time: 05/27/2022 2:04 PM Indication: Pain after fall. Comparison: None Findings: 3 views of the right shoulder were obtained. ??There is osteolysis of the distal clavicle. ??There is a high riding humeral head, evidence for underlying rotator cuff disease. ??There is a potential very subtle linear lucency in the humeral neck seen on the AP view. ??There is no glenohumeral dislocation. Procedure Note Shadi Franklin MD - 05/27/2022 Examination: XR SHOULDER RT 3V Exam time: 05/27/2022 2:04 PM Indication: Pain after fall. Comparison: None Findings: 3 views of the right shoulder were obtained. There isosteolysis of the distal clavicle. There is a high riding humeral head,evidence for underlying rotator cuff disease. There is a potential verysubtle linear lucency in the humeral neck seen on the AP view. There isno glenohumeral dislocation. IMPRESSION: 1. There is a high riding humeral head, evidence for underlying rotatorcuff disease. 2. There is osteolysis of the distal clavicle, presumably related to oldinjury or postsurgical change. 3. There is a potential very subtle linear lucency in the humeral neckseen on the AP view. A nondisplaced fracture is not excluded.Correlation to site of pain is recommended. If the patient's pain doesnot improve, short-term radiographic follow-up in 7 days is recommendedfor further evaluation. Referred By: Interpreted By: Shadi Franklin MD, 05/27/2022 2:39 PM Radha Salcedo MD GENERAL IMAGING Final Result * XR SHOULDER LT 3V (05/27/2022 2:36 PM APPRENTICE TECHNICIAN) Anatomical Region Laterality Modality Shoulder Radiographic Vivian ging 05/27/2022 2:40 PM APPRENTICE TECHNICIAN Impressions 05/27/2022 2:44 PM APPRENTICE TECHNICIAN IMPRESSION: 1. ??No acute osseous abnormality identified. 2. ??Other chronic or nonurgent findings as described above. Referred By: ?? Interpreted By: Jose Alberto Reeves MD, 05/27/2022 2:40 PM Narrative 05/27/2022 2:44 PM APPRENTICE TECHNICIAN EXAMINATION: XR SHOULDER LT 3V HISTORY: Pain after injury DATE: 05/27/2022 2:04 PM COMPARISON: None TECHNIQUE: AP internal rotation, AP external rotation and scapular Y views of the left shoulder. ??3 images. FINDINGS: Both AP views are essentially the same orientation. ??No acute fracture identified. ??No evidence of dislocation. ??I riding humeral head suggesting chronic rotator cuff disease. ??Relatively mild degenerative changes of the AC joint and glenohumeral joint. ??Small tendon repair anchors in the humeral head. Procedure Note Jose Alberto Reeves MD - 05/27/2022 EXAMINATION: XR SHOULDER LT 3V HISTORY: Pain after injury DATE: 05/27/2022 2:04 PM COMPARISON: None TECHNIQUE: AP internal rotation, AP external rotation and scapular Y viewsof the left shoulder. 3 images. FINDINGS: Both AP views are essentially the same orientation. No acutefracture identified. No evidence of dislocation. I riding humeral headsuggesting chronic rotator cuff disease. Relatively mild degenerativechanges of the AC joint and glenohumeral joint. Small tendon repairanchors in the humeral head. IMPRESSION: 1. No acute osseous abnormality identified. 2. Other chronic or nonurgent findings as described above. Referred By: Interpreted By: Jose Alberto Reeves MD, 05/27/2022 2:40 PM us Radha Salcedo MD GENERAL IMAGING Final Result * CT CERV SPINE WO CON (05/27/2022 2:08 PM APPRENTICE TECHNICIAN) Anatomical Region Laterality Modality Spine Computed Tomogra phy 05/27/2022 2:13 PM APPRENTICE TECHNICIAN Impressions 05/27/2022 2:15 PM APPRENTICE TECHNICIAN IMPRESSION: 1.Extensive degenerative changes. No evidence of acute injury Ordered By: RADHA SALCEDO Interpreted By: Deni Martínez MD, 05/27/2022 2:13 PM Narrative 05/27/2022 2:[address] CERVICAL SPINE WITHOUT CONTRAST CLINICAL HISTORY: Injury from fall TECHNIQUE: Dynamic helical images of the cervical spine were obtained in the axial plane without contrast. Sagittal and coronal views were reconstructed from the axial data set. A dose lowering technique was used for this procedure, which may include, but is not limited to, dose reduction technique, automated exposure control, the use of iterative reconstruction, and ALARA (As Low As Reasonably Achievable) / Image Gently techniques. Comparison: No prior studies are available for comparison. FINDINGS: The obtained images demonstrate no evidence of acute fracture or subluxation. The craniocervical junction is intact. Degenerative changes are noted surrounding the dens. The vertebral body heights are symmetric and grossly normal throughout. There is complete loss of intervertebral disc height at the C3-C4, C4-C5, C5-C6, and C6-C7 levels. This is most significant at C5-C6 where there are bulky anterior and posterior osteophytes as well as cystic changes within the vertebral bodies adjacent to the endplates. Bulky osteophytes are also noted arising from the posterior aspect of the C7-T1 level. These result in [id number] central cervical stenosis. The facets are normally aligned but exhibit prominent sclerosis. The spinous processes appear normal Soft tissue windows reveal no paraspinal fluid collections to be evident evident. The visualized portion of the airway and esophagus are within normal limits. No adenopathy is seen within the neck. The lung apices are clear. Procedure Note Deni Martínez MD - 05/27/2022 CT CERVICAL SPINE WITHOUT CONTRAST CLINICAL HISTORY: Injury from fall TECHNIQUE: Dynamic helical images of the cervical spine were obtained inthe axial plane without contrast. Sagittal and coronal views werereconstructed from the axial data set. A dose lowering technique was usedfor this procedure, which may include, but is not limited to, dosereduction technique, automated exposure control, the use of iterativereconstruction, and ALARA (As Low As Reasonably Achievable) / Image Gentlytechniques. Comparison: No prior studies are available for comparison. FINDINGS: The obtained images demonstrate no evidence of acute fracture orsubluxation. The craniocervical junction is intact. Degenerative changesare noted surrounding the dens. The vertebral body heights are symmetricand grossly normal throughout. There is complete loss of intervertebraldisc height at the C3-C4, C4-C5, C5-C6, and C6-C7 levels. This is mostsignificant at C5-C6 where there are bulky anterior and posteriorosteophytes as well as cystic changes within the vertebral bodies adjacentto the endplates. Bulky osteophytes are also noted arising from theposterior aspect of the C7-T1 level. These result in vqtc-ph-gyzdtywyboqzxhe cervical stenosis. The facets are normally aligned but exhibitprominent sclerosis. The spinous processes appear normal Soft tissue windows reveal no paraspinal fluid collections to be evidentevident. The visualized portion of the airway and esophagus are withinnormal limits. No adenopathy is seen within the neck. The lung apices areclear. IMPRESSION: 1.Extensive degenerative changes. No evidence of acute injury Ordered By: RADHA SALCEDO Interpreted By: Deni Martínez MD, 05/27/2022 2:13 PM Radha Salcedo MD CT Final Result * CT HEAD WO CON (05/27/2022 2:08 PM APPRENTICE TECHNICIAN) Anatomical Region Laterality Modality Head Computed Tomogra phy 05/27/2022 2:12 PM APPRENTICE TECHNICIAN Impressions 05/27/2022 2:13 PM APPRENTICE TECHNICIAN IMPRESSION: Left maxillary sinusitis. No evidence of acute intracranial injury Ordered By: RADHA SALCEDO Interpreted By: Deni Martínez MD, 05/27/2022 2:12 PM Narrative 05/27/2022 2:[address] HEAD WITHOUT CONTRAST Exam date: 05/27/2022 2:12 PM Clinical history: Injury, pain Technique: 3 mm collimated axial images of the head were obtained without contrast. A dose lowering technique was used for this procedure, which may include, but is not limited to, dose reduction technique, automated exposure control, the use of iterative reconstruction, and ALARA (As Low As Reasonably Achievable) / Image Gently techniques. Comparison: reviewed without prior studies available for comparison. FINDINGS: Images of the head demonstrate no evidence of acute or chronic intracranial hemorrhage. No masses or mass effects are seen. The ventricles and sulci are symmetric and appear normal. There is normal lomeli-white differentiation throughout. There is no evidence of midline shift. Bone window images reveal fluid opacification of the left maxillary sinus. There is no evidence of fracture. Procedure Note Deni Martínez MD - 05/27/2022 CT HEAD WITHOUT CONTRAST Exam date: 05/27/2022 2:12 PM Clinical history: Injury, pain Technique: 3 mm collimated axial images of the head were obtained withoutcontrast. A dose lowering technique was used for this procedure, which mayinclude, but is not limited to, dose reduction technique, automatedexposure control, the use of iterative reconstruction, and ALARA (As LowAs Reasonably Achievable) / Image Gently techniques. Comparison: reviewed without prior studies available for comparison. FINDINGS: Images of the head demonstrate no evidence of acute or chronicintracranial hemorrhage. No masses or mass effects are seen. Theventricles and sulci are symmetric and appear normal. There is normalgray-white differentiation throughout. There is no evidence of midlineshift. Bone window images reveal fluid opacification of the left maxillary sinus.There is no evidence of fracture. IMPRESSION: Left maxillary sinusitis. No evidence of acute intracranial injury Ordered By: RADHA SALCEDO Interpreted By: Deni Martínez MD, 05/27/2022 2:12 PM Radha Salcedo MD CT Final Result documented in this encounter Visit Diagnoses Diagnosis Head trauma- Primary Head injury, unspecified Scalp laceration Open wound of scalp, without mention of complication Shoulder pain Pain in joint, shoulder region Wrist pain Pain in joint, forearm documented in this encounter Administered Medications Inactive Administered Medications - up to 3 most recent administrations Medication Order MAR Action Action Date Dose Rate Site morphine injection 2 mg 2 mg, Intravenous, Once, 1 dose, On 05/27/22 at 1345 Given 05/27/2022 1:43 PM APPRENTICE TECHNICIAN 2 mg morphine injection 2 mg 2 mg, Intravenous, Once, 1 dose, On 05/27/22 at 1445 Given 05/27/2022 2:54 PM APPRENTICE TECHNICIAN 2 mg ondansetron (ZOFRAN) injection 4 mg 4 mg, Intravenous, Once, 1 dose, On 05/27/22 at 1345, IV push over 2-5 minutes. Given 05/27/2022 1:43 PM APPRENTICE TECHNICIAN 4 mg documented in this encounter Active and Recently Administered Medications Times are shown in APPRENTICE TECHNICIAN. Scheduled Medication Order 05/25/2022 05/26/2022 05/27/2022 morphine injection 2 mg (COMPLETED) 2 mg, Intravenous, Once, 1 dose, On 05/27/22 at 1345 1343 (Given - Provid er: Renetta Clarke RN) morphine injection 2 mg (COMPLETED) 2 mg, Intravenous, Once, 1 dose, On 05/27/22 at 1445 1454 (Given - Provid er: Renetta Clarke RN) ondansetron (ZOFRAN) injection 4 mg (COMPLETED) 4 mg, Intravenous, Once, 1 dose, On 05/27/22 at 1345, IV push over 2-5 minutes. 1343 (Given - Provid er: Renetta Clarke RN) documented in this encounter Care Teams Caretaker Resort Relationship Specialty Start Date End Date None, Provider, MD PCP - General UNKNOWN PHYSICIAN SPECIALTY 05/27/22 documented as of this encounter
--- OUTSIDE RECORDS SUMMARY | 2024-04-11 03:34 | XMS_ITS | Encounter Summary ---
Author Organization [facility] Address [facility]. [place], [place] [id number] [place] [id number] Care Team Providers Care Metal Drawer Name Role Phone Miah Montiel MD Primary Care Provider Unavailable Encounter Details Date Type Department Care Team (Late st Contact Info) Description 12/31/2012 Abstract [facility] [address] Adi Vieira MD [address] [place] [id number] Social History Tobacco Use Types Packs/Day Years Used Date Smoking Tobacco: Never Assessed Comments Unknown Sex and Gender Information Value Date Recorded Sex Assigned at Not on file Legal Sex Female 8:30 PM CDT Gender Identity Not on file Sexual Orientation Not on file documented as of this encounter Plan of Treatment Not on file documented as of this encounter Visit Diagnoses Diagnosis Examination Unspecified examination documented in this encounter Care Teams Metal Drawer Relationship Specialty Start Date End Date Miah Montiel MD PCP - General 12/31/12 documented as of this encounter
--- OUTSIDE RECORDS SUMMARY | 2024-04-11 03:34 | XMS_ITS | Encounter Summary ---
Author Organization [facility] Address [facility]6 [place] [address] [place] [address] Care Team Providers Care Pressroom Supervisor Name Role Phone Md Generic Willa HANEY Primary Care Provider Unavailable Miah Haney MD Primary Care Provider Unavailable Md Generic Willa HANEY Primary Care Provider Unavailable Encounter Details Date Type Department Care Team (Late st Contact Info) Description 10/05/2008 Abstract [facility] [place] [address] Adi Vieira MD [address] [place] [id number] Social History Tobacco Use Types Packs/Day Years [...] on filedocumented in this encounter Care Teams Pressroom Supervisor Relationship Specialty Start Date End Date Miah Haney MD PCP - General 12/31/12 Miah Haney MD PCP - General 10/13/12 Miah Haney MD PCP - General 09/15/10 documented as of this encounter
--- OUTSIDE RECORDS SUMMARY | 2024-04-11 03:34 | XMS_ITS | Encounter Summary ---
Author Organization [facility] Address [facility] [place] [address] [place] [address] Care Team Providers Care Grounding Engineer Name Role Phone Miah Montiel MD Primary Care Provider Unavailable Miah Montiel MD Primary Care Provider Unavailable Encounter Details Date Type Department Care Team (Late st Contact Info) Description 10/13/2012 Abstract [facility] [place] [address] Adi Vieira MD [address] [place] [id number] Social History Tobacco Use Types Packs/Day Years [...] examination documented in this encounter Care Teams Grounding Engineer Relationship Specialty Start Date End Date Miah Montiel MD PCP - General 12/31/12 Miah Montiel MD PCP - General 10/13/12 documented as of this encounter
--- OUTSIDE RECORDS SUMMARY | 2024-04-11 03:34 | XMS_ITS | Encounter Summary ---
Author Organization [facility] Address [facility]6 [facility] [place] [address] [place] [address] Care Team Providers Care Business Administration Instructor Name Role Phone Md Generic Willa HANEY Primary Care Provider Unavailable Miah Haney MD Primary Care Provider Unavailable Md Generic Willa HANEY Primary Care Provider Unavailable Encounter Details Date Type Department Care Team (Late st Contact Info) Description 10/15/2008 Abstract [facility] [place] [address] Adi Vieira MD [address] [place] [id number] Social History Tobacco Use Types Packs/Day Years [...] on filedocumented in this encounter Care Teams Business Administration Instructor Relationship Specialty Start Date End Date Miah Haney MD PCP - General 12/31/12 Miah Haeny MD PCP - General 10/13/12 Miah Hanye MD PCP - General 09/15/10 documented as of this encounter
--- OUTSIDE RECORDS SUMMARY | 2024-04-11 03:34 | XMS_ITS | Encounter Summary ---
Author Organization [facility] Address [facility] [place] [address] [place] [address] Care Team Providers Care B2B Sales Executive Name Role Phone Md Generic Willa HANEY Primary Care Provider Unavailable Miah Haney MD Primary Care Provider Unavailable Md Generic Willa HANEY Primary Care Provider Unavailable Encounter Details Date Type Department Care Team ([facility] st Contact Info) Description 09/10/2008 Abstract [facility] [address] [place] [address] Aldo Joy MD [address] [facility] [address] [address] Social History Tobacco Use Types Packs/Day Years [...] on filedocumented in this encounter Care Teams B2B Sales Executive Relationship Specialty Start Date End Date Miah Haney MD PCP - General 12/31/12 Miah Haney MD PCP - General 10/13/12 Miah Haney MD PCP - General 09/15/10 documented as of this encounter
--- OUTSIDE RECORDS SUMMARY | 2024-04-11 03:34 | XMS_ITS | Encounter Summary ---
Author Organization [facility] Address [facility] [place] [address] [place] [address] Care Team Providers Care Generalist Name Role Phone Miah Montiel MD Primary Care Provider Unavailable Miah Montiel MD Primary Care Provider Unavailable Miah Montiel MD Primary Care Provider Unavailable Encounter Details Date Type Department Care Team (Late st Contact Info) Description 09/27/1995 [place] [address] Miah Montiel MD Social History Tobacco Use Types Packs/Day Years [...] on filedocumented in this encounter Care Teams Generalist Relationship Specialty Start Date End Date Miah Montiel MD PCP - General 12/31/12 Miah Montiel MD PCP - General 10/13/12 Miah Montiel MD PCP - General 09/15/10 documented as of this encounter
--- OUTSIDE RECORDS SUMMARY | 2024-04-11 03:34 | XMS_ITS | Encounter Summary ---
Author Organization [facility] Address [facility]. [place], [place] [address] [place] [address] Care Team Providers Care Jewelry Sales Coordinator Name Role Phone Miah Montiel MD Primary Care Provider Unavailable Miah Montiel MD Primary Care Provider Unavailable Miah Montiel MD Primary Care Provider Unavailable Encounter Details Date Type Department Care Team (Late st Contact Info) Description 04/26/1995 Abstract [place] [address] Miah Montiel MD Social History Tobacco Use [...] on filedocumented in this encounter Care Teams Jewelry Sales Coordinator Relationship Specialty Start Date End Date Miah Montiel MD PCP - General 12/31/12 Miah Montiel MD PCP - General 10/13/12 Miah Montiel MD PCP - General 09/15/10 documented as of this encounter
--- OUTSIDE RECORDS SUMMARY | 2024-04-11 03:34 | XMS_ITS | Encounter Summary ---
Author Organization [facility] Address [facility]6 [facility]. [place], [place] [address] [place] [address] Care Team Providers Care Temp Recruiter Name Role Phone Miah Montiel MD Primary Care Provider Unavailable Miah Montiel MD Primary Care Provider Unavailable Miah oMntiel MD Primary Care Provider Unavailable Encounter Details Date Type Department Care Team (Late st Contact Info) Description 05/28/1990 [place] [address] Miah Montiel MD Social History Tobacco Use [...] on filedocumented in this encounter Care Teams Temp Recruiter Relationship Specialty Start Date End Date Miah Montiel MD PCP - General 12/31/12 Miah Montiel MD PCP - General 10/13/12 Miah Montiel MD PCP - General 09/15/10 documented as of this encounter
--- OUTSIDE RECORDS SUMMARY | 2024-04-11 03:34 | XMS_ITS | Clinical Summary ---
Author Organization [facility] Address [facility] [place] [address] [place] [address] Care Team Providers Care Logistics Planner Name Role Phone None, Provider Primary Care Provider Unavaila ble Allergies Active Allergy Reactions Criticality Noted Date Comments Sulfa Antibiotics Hives 05/27/2022 Social History Tobacco Use Types Packs/Day Years Used Date Smoking Tobacco: Never Assessed Comments Unknown Sex and Gender Information Value Date Recorded Sex Assigned at Not on file Legal Sex Female 8:30 PM CDT Gender Identity Not on file Sexual Orientation Not on file Last Filed Vital Signs Vital Sign Reading Time Taken Comments Blood Pressure 102/68 05/27/2022 1:18 PM HISTOTECHNICIAN Pulse 70 05/27/2022 1:18 PM HISTOTECHNICIAN Temperature 36.8 ??C (98.3 ??F) 05/27/2022 1:18 PM CS T Respiratory Rate 18 05/27/2022 1:18 PM HISTOTECHNICIAN Oxygen Saturation 100% 05/27/2022 1:18 PM HISTOTECHNICIAN Inhaled Oxygen Concentration - - Weight 64.7 kg (142 lb 10.2 oz) 05/27/2022 1:18 PM HISTOTECHNICIAN Height 154.9 cm (5' 1 ) 05/27/2022 1:18 PM HISTOTECHNICIAN Body Mass Index 26.95 05/27/2022 1:18 PM HISTOTECHNICIAN Plan of Treatment Health Maintenance Due Date Last Done Comments Colorectal Cancer Screening Colonoscopy (10 Years) 1950 Hepatitis C 02/12/1968 Mammogram Screening 1990 Annual Medicare Wellness Visit 2015 Dexa Scan (General) 2015 DTaP, Tdap and Td Vaccines (2 - Tdap) 07/17/2021 07/18/2011 COVID-19 Vaccine (3 - season) 2023 01/25/2021, 06/03/2020 Influenza Adult (#1) 2023 12/09/2019, 12/08/2019, 01/25/2019, Additional history exists RSV Immunization or 60+ Years (1 - 1-dose 75+ series) 2025 Zoster Vaccines Completed 03/18/2019, 01/12/2019 Pneumococcal Vaccine: 65+ Years Completed 07/01/2019, 06/30/2018 Meningococcal Vaccine Aged Out No tiana nohemy eligible based on patient's age to complete this topic RSV Immunizations Under 20 Months Aged Out No longer eligible based on patient's age to complete [place] [address] Care Teams Logistics Planner Relationship Specialty Start Date End Date None, Provider, PCP - General UNKNOWN PHYSICIAN SPECIALTY 05/27/22
--- OUTSIDE RECORDS SUMMARY | 2024-04-11 03:34 | XMS_ITS | Encounter Summary ---
Author Organization [facility] Address [facility]. [place], [place] [address] [place] [address] Care Team Providers Care Custodial Maintenance Worker Name Role Phone Miah Montiel MD Primary Care Provider Unavailable Miah Montiel MD Primary Care Provider Unavailable Miah Montiel MD Primary Care Provider Unavailable Encounter Details Date Type Department Care Team (Late st Contact Info) Description 12/09/[address] [facility] [place] [address] Miah Montiel MD Social History Tobacco Use [...] on filedocumented in this encounter Care Teams Custodial Maintenance Worker Relationship Specialty Start Date End Date Miah Montiel MD PCP - General 12/31/12 Miah Montiel MD PCP - General 10/13/12 Miah Montiel MD PCP - General 09/15/10 documented as of this encounter
--- OUTSIDE RECORDS SUMMARY | 2024-04-11 03:34 | XMS_ITS | Encounter Summary ---
Author Organization [facility] Address [facility]6 [facility] [place] [address] [place] [address] Care Team Providers Care Internet Security Specialist Name Role Phone Md Generic Willa HANEY Primary Care Provider Unavailable Miah Haney MD Primary Care Provider Unavailable Md Generic Willa HANEY Primary Care Provider Unavailable Encounter Details Date Type Department Care Team (Late st Contact Info) Description 09/11/2008 Abstract [facility] [place] [address] Adi Vieira MD [address] [place] [id number] Social History Tobacco Use Types Packs/Day Years [...] on filedocumented in this encounter Care Teams Internet Security Specialist Relationship Specialty Start Date End Date Miah Haney MD PCP - General 12/31/12 Miah Haney MD PCP - General 10/13/12 Miah Haney MD PCP - General 09/15/10 documented as of this encounter
--- OUTSIDE RECORDS SUMMARY | 2024-04-11 03:34 | XMS_ITS | Encounter Summary ---
Author Organization [facility] Address [facility] access hospital6 [facility] [place] [address] [place] [address] Care Team Providers Care Software Administrator Name Role Phone Md Generic Willa HANEY Primary Care Provider Unavailable Miah Haney MD Primary Care Provider Unavailable Md Generic Willa HANEY Primary Care Provider Unavailable Encounter Details Date Type Department Care Team (Late st Contact Info) Description 09/15/2010 Abstract [facility] [place] [address] Adi Vieira MD [address] [place] [address] Social History Tobacco Use Types Packs/Day Years Used Date Smoking Tobacco: Never Assessed Comments Unknown Sex and Gender Information Value Date Recorded Sex Assigned at Not on file Legal Sex Female 8:30 PM CDT Gender Identity Not on file Sexual Orientation Not on file documented as of this encounter Plan of Treatment Not on file documented as of this encounter Visit Diagnoses Diagnosis Ferrell's esophagus documented in this encounter Care Teams Software Administrator Relationship Specialty Start Date End Date Miah Haney MD PCP - General 12/31/12 Miah Haney MD PCP - General 10/13/12 Miah Haney MD PCP - General 09/15/10 documented as of this encounter
--- OUTSIDE RECORDS SUMMARY | 2024-04-11 03:34 | XMS_ITS | Encounter Summary ---
Author Organization [facility] Address [facility], [id number] [facility]. [place], [place] [address] [place] [address] Care Team Providers Care Radio Engineering Teacher Name Role Phone None, Provider Primary Care Provider Unavaila ble Encounter Details Date Type Department Care Team (Latest Contact Info) Description 05/27/2022 Travel Social History Tobacco Use Types Packs/Day [...] Coronavirus/COVID-19? No / Unsure 05/27/2022 1:34 PM RISK ADVISOR documented as of this encounter Plan of Treatment Not on file documented as of this encounter Visit Diagnoses Not on filedocumented in this encounter Care Teams Radio Engineering Teacher Relationship Specialty Start Date End Date None, Provider, PCP - General UNKNOWN PHYSICIAN SPECIALTY 05/27/22 documented as of this encounter
--- OUTSIDE RECORDS SUMMARY | 2024-04-11 03:35 | XMS_ITS | Encounter Summary ---
Author Organization [facility] Healthcare Address [address] [place] [address] Care Team Providers Care Transcription Coordinator Name Role Phone Farhat Crocker NP Primary Care Provider [phone] Reason for Visit * Reason Comments Follow-up Overdue annual f/u Hypertension Hyperlipidemia Shortness of Breath Encounter Details Date Type Department Care Team (Latest Contact Info) Description 01/20/2024 12:30 PM CDT Office Visit [facility] Medical [facility] Cardiology [address] [facility] [address] [place] [address] Ori Murillo MD [address] [place] [address] Mixed hyperlipidemia (Primary Dx); Primary hypertension; Dyspnea on exertion Social History Tobacco Use Types Packs/Day Years Used Date Smoking Tobacco: Never Smokeless Tobacco: Never Alcohol Use Standard Drinks/Week Comments Never 0 (1 standard drink = 0.6 oz pur e alcohol) AUDIT-C Answer Date Recorded Frequency of Alcohol Consumption Never 02/23/2019 Average Number of Drinks Not on file 019 Frequency of Binge Drinking Not on file 01/31 Personal Safety Answer Date Recorded Getting School Help Needed Not on file 03/23 Comments Unknown Sex and Gender Information Value Date Recorded Sex Assigned at Not on file Legal Sex Female 8:14 PM [employer]ER [employer] Gender Identity Not on file Sexual Orientation Not on file documented as of this encounter Last Filed Vital Signs Vital Sign Reading Time Taken Comments Blood Pressure 120/58 01/20/2024 12:41 PM CDT Pulse 91 01/20/2024 12:41 PM CDT Temperature - - Respiratory Rate - - Oxygen Saturation 99% 01/20/2024 12:41 PM CDT Inhaled Oxygen Concentration - - Weight 66 kg (145 lb 9.6 oz) 01/20/2024 12:41 PM CDT Height 152.4 cm (5') 01/20/2024 12:41 PM CDT Body Mass Index 28.44 01/20/2024 12:41 PM CDT documented in this encounter Progress Notes * Ori Murillo MD - 01/20/2024 12:30 PM CDT [facility] Medical [facility] Cardiology [address] [place] [address] Date of Visit: 01/20/2024 Patient ID: Kandace Cole 1950 Chief Complaint Patient presents with Follow-up Overdue annual f/u Hypertension Hyperlipidemia Shortness of Breath Kandace Cole is a 73 y.o. female who is an established patient of Dr. Murillo with a history of chronic dyspnea, hypertension, hyperlipidemia, returning to the office for preoperative assessment. History of Present Illness: Kandace Cole is a 73 y.o. female with past medical history of diet-controlled type 2 diabetes, CKD stage 3 , hyper lipidemia, depression, hypertension, hypothyroidism, iron deficiency anemia, macular degeneration, Ferrell's esophagus is here for evaluation for dyspnea on exertion. Patient was in [place] and moved to this area recently. She was evaluated in [place] by stress test about couple years ago that was unremarkable. 02/23/2019 initial consultation: Complains of dyspnea on exertion for the last couple years specially walking half a mi or going up stairs. She did have chest pain, left-sided aggravated by moving the left shoulder and stress test in [place] to was negative. She admits to heartburn when she eats and relieved by antacids. This has not changed form many years. Denies lower limb edema, orthopnea, parox ysmal nocturnal dyspnea, dizziness, syncope. She reports that she was exposed to secondhand smokingall her life. Head brother at age 69 with massive myocardial infarction. 04/06/2019 follow-up visit with JOURNEYMAN WIREMAN: She returns for follow-up of her dyspnea on exertion. She has intentionally been trying to lose weight since her last visit here. A week ago she was started on Tradjenta for her diabetes. Her dyspnea on exertion remains the same. She wonders if some of it is due to her fibromyalgia. She states she was diagnosed with COPD in 2006 and use to use an inhaler but ann s not use 1 now. She feels that she recovers more quickly from her dyspnea currently them when she did when she was diagnosed with her COPD. Her PCP sent her for PFTs a couple of months ago. When shehad her stress test 2 years ago she was having chest pain at that time, but she has not had any chest pain recently. 10/12/2019 follow-up visit with JOURNEYMAN WIREMAN: She returns for six-month follow-up. She reports no changes in her health. She had been walking outside for exercise but stopped doing this because of the pandemic. Her ANN is unchanged. She has not had any chest pain. 04/11/2020-returns for follow-up appointment. Continues to have the same dyspnea on exertion unchanged from before. Denies chest pain, lower limb edema, admits to rare intermittent palpitations at night. Also she has episodes of vertigo. 10/10/2020-returns for follow-up appointment. She has lost 14 lb since last visit by diet and exercise. Continues to have stable dyspnea on exertion unchanged from before. Denies chest pain, lower limb edema, dizziness, syncope. She does have episodes of vertigo sometimes. She she also has the episodes of palpitations at night. 10/16/2021 follow-up visit with JOURNEYMAN WIREMAN: She is here for annual follow-up. Over the last year she has been referred to Dr. Reyna for management of CKD (stage 3-4, most recent creatinine 1.73, GFR 29). She is also waiting for cervical spine surgery due to disc herniation. She has problems with vertigo chronically and is taking daily meclizine. Between the vertigo and her cervical spine problems she has been pretty sedentary but she is able to go up and down her basement stairs and can walk about 2 blocks before she has to stop catch her breath. She thinks her dyspnea has stayed the same over the last year. 04/12/2022 office visit with JOURNEYMAN WIREMAN. She returns to the office at my request for reassessment prior to cervical spine surgery. We discussed the surgery at her last visit but it has been 6 months since I have seen her. The significant change in her health since then was a fall which sounded like an orthostatic syncopal event in the setting of hyponatremia, resulted in facial fractures, and she was transferred from [place] to [facility] for further evaluation and treatment. Her carvedilol was placed on hold but has restarted and she said she is not had further low blood pressures. She was instructed on generous dietary sodium intake and her sodium has improved. She is still following with Dr. Reyna for her CKD. She denies chest pain. Her chronic ANN is unchanged. She is able to go up and down stairs and walk 1-2 blocks. 12-lead ECG performed in the office today was independently interpreted by me and showed Sinus rhythm, normal axis and normal intervals, rate 76 beats per minute 10/22/2022-returns for follow-up appointment. She is here accompanied by her grandson. She underwent upper back surgery at [facility] in May 2022 and did well. Shortness of breath on exertion is better than before. Denies chest pain, lower extremity edema, palpitations, dizzinessor syncope. She did gain 10 lb compared to last visit. 01/20/2024-returns for follow-up appointment. She is overdue for a yearly visit. Denies lower extremity edema, chest pain, dizziness or syncope. She has increasing dyspnea on exertion for the last couple months. Medical History: Past Medical History: Diagnosis Date Ferrell's esophagus COPD (chronic obstructive pulmonary disease) (HCC) Depression Heart murmur Hyperlipidemia Hypertension Iron deficiency anemia Raynaud's disease Sleep apnea Past Surgical History: Procedure Laterality Date APPENDECTOMY CARPAL TUNNEL RELEASE Bilateral CATARACT EXTRACTION HYSTERECTOMY LAMINECTOMY ROTATOR CUFF REPAIR Left TONSILLECTOMY Social History Tobacco Use Smoking status: Never Smokeless tobacco: Never Substance and Sexual Activity Drug use: Never Sexual activity: None Alcohol Use: Not At Risk (06/20/2022) Received from [facility] AUDIT-C Frequency of Alcohol Consumption: Never Average Number of Drinks: Not on file Frequency of Binge Drinking: Not on file Family History Problem Relation Age of Onset Heart attack Mother Heart attack Brother Review of Systems Constitutional: Negative for diaphoresis, fever, malaise/fatigue, weight gain and weight loss. HENT: Negative for hearing loss. Eyes: Negative for visual disturbance. Cardiovascular: Positive for dyspnea on exertion (Chronic). Negative for chest pain, claudication, leg swelling, orthopnea, palpitations, paroxysmal nocturnal dyspnea and syncope. Respiratory: Negative for cough, hemoptysis, shortness of breath, snoring and wheezing. Hematologic/Lymphatic: Does not bruise/bleed easily. Skin: Negative for poor wound healing and rash. Musculoskeletal: Positive for joint pain (bilateral shoulders) and neck pain. Negative for myalgias. Gastrointestinal: Negative for heartburn, nausea and vomiting. Genitourinary: Negative for hematuria. Neurological: Positive for disturbances in coordination. Negative for dizziness, headaches and light-headedness. Psychiatric/Behavioral: Negative for depression. The patient is not nervous/anxious. Vital Signs: BP 120/58 (BP Location: Right arm, Patient Position: Sitting) Pulse 91 Ht 152.4 cm (5') Wt 66kg (145 lb 9.6 oz) SpO2 99% BMI 28.44 kg/m?? Physical Exam Constitutional: General: She is not in acute distress. Appearance: She is well-developed. HENT: Head: Normocephalic and atraumatic. Nose: Comments: Wearing a mask Eyes: General: No scleral icterus. Conjunctiva/sclera: Conjunctivae normal. Neck: Vascular: No JVD. Trachea: No tracheal deviation. Cardiovascular: Rate and Rhythm: Normal rate and regular rhythm. Heart sounds: Normal heart sounds. No murmur heard. Pulmonary: Effort: Pulmonary effort is normal. No respiratory distress. Breath sounds: Normal breath sounds. Musculoskeletal: Cervical back: Decreased range of motion. Right lower leg: No edema. Left lower leg: No edema. Skin: General: Skin is warm and dry. Neurological: Mental Status: She is alert and oriented to person, place, and time. Psychiatric: Mood and Affect: Mood normal. Behavior: Behavior normal. Allergies Allergen Reactions Latex Hives Bethanechol Unknown Cyclobenzaprine Unknown Eggshell Membrane Unknown Fluoxetine Unknown Meperidine Unknown Naproxen Unknown Sulfa (Sulfonamide Antibiotics) Unknown Travoprost Unknown Current Outpatient Medications: buPROPion SR (WELLBUTRIN SR) 100 mg 12 hr tablet, Take 1 tablet (100 mg total) by mouth 2 (two) times a day, Disp: , Rfl: calcitRIOL (ROCALTROL) 0.25 mcg capsule, Take 1 capsule (0.25 mcg total) by mouth 3 (three) times aweek, Disp: , Rfl: carvedilol (COREG) 6.25 mg tablet, Take 1 tablet (6.25 mg total) by mouth 2 (two) times a day, Disp: , Rfl: cholecalciferol (VITAMIN D-3) 2000 unit tablet, Take 1 tablet (2,000 Units total) by mouth 2 (two) times a day, Disp: , Rfl: citalopram (CeleXA) 40 mg tablet, , Disp: , Rfl: escitalopram (LEXAPRO) 20 mg tablet, Take 1 tablet (20 mg total) by mouth daily, Disp: , Rfl: furosemide (LASIX) 20 mg tablet, Take 1 tablet (20 mg total) by mouth every other day One pill every other day, Disp: , Rfl: latanoprost (XALATAN) 0.005 % ophthalmic solution, daily, Disp: , Rfl: LISINOPRIL ORAL, Take 10 mg by mouth daily, Disp: , Rfl: meclizine (ANTIVERT) 25 mg tablet, Take 1 tablet (25 mg total) by mouth 3 (three) times a day as needed for dizziness, Disp: , Rfl: pantoprazole DR (PROTONIX) 40 mg EC tablet, Take 1 tablet (40 mg total) by mouth daily, Disp: , Rfl: polyvinyl alcohol (LIQUIFILM TEARS) 1.4 % ophthalmic solution, Administer 1 drop into affected eye(s) every 4 (four) hours as needed, Disp: , Rfl: pravastatin (PRAVACHOL) 40 mg tablet, Take 1 tablet (40 mg total) by mouth daily, Disp: , Rfl: QUEtiapine XR (SEROquel XR) 200 mg 24 hr tablet, Take 1 tablet (200 mg total) by mouth nightly, Disp: , Rfl: vitamins A,C,T-nqjy-jopmyc (PreserVision AREDS) 2,148 mcg-113 mg-45 mg-17.4mg tablet, 1 tablet, Disp: , Rfl: Bydureon BCise 2 mg/0.85 mL auto-injector, , Disp: , Rfl: cyanocobalamin (Vitamin B-12) 500 mcg tablet, Take 1 tablet (500 mcg total) by mouth daily (Patientnot taking: Reported on 01/20/2024), Disp: , Rfl: No results found for: POTASSIUM , BUNSER , CREATININE , CHOL , TRIG , LDL , LDLCALC , HDL No results found for: WBC , HGB , HCT , MCV , PLT Assessment: Diagnoses and all orders for this visit: Mixed hyperlipidemia (Primary) Primary hypertension Dyspnea on exertion Plan/Recommendations: She has chronic dyspnea worse in the last couple weeks. Appears to be pale on physical exam today. Advised her to contact PCP regarding checking CBC. She does have a history of blood transfusions in the past. PCP has done PFTs in the past but did not advise any kind of inhaler. She has a history of secondhand smoke exposure. Echocardiogram 2020 we did in the past showed normal cardiac structure and function. Repeat echo at [facility] 2021 shows ejection fraction 72%, severe mitral annular calcification mild mitral stenosis. Consider repeating echo next visit. In regards to hypertension, blood pressure today 120/58. Continue carvedilol and lisinopril. She has a history of hyperlipidemia. Continue pravastatin. Lipid panel done today January 20 2024LDL 84, HDL 31 and triglycerides 131. CKD is followed by waterproofing supervisor Dr. Reyna. Continue Nephrology follow-up. She takes Lasix 20 mg every other day. Keep the previously scheduled follow-up with Dr. Murillo in 12months. Call us sooner with questions or concerns. Ori Murillo MD This note is dictated and transcribed using [employer]. Ruby Rails Developer variancesmay occur. Despite proofreading, typographical errors may occur. documented in this encounter Plan of Treatment Not on file documented as of this encounter Procedures Procedure Name Priority Date/Time Associated Diagnosis Comments POCT LIPID PANEL Routine 01/20/2024 1:28 PM CDT Mixed hyperlipidemia documented in this encounter Results * POCT lipid panel (01/20/2024 1:28 PM CDT) Cholesterol, POC 142 mg/dL Comment:GLU = 191 HDL, POC 31 mg/dL Triglycerides, POC 131 mg/dL LDL Cholesterol POC 84 mg/dL Chol/HDL Ratio, POC 2.7 Non-HDL Cholesterol, POC 111 mg/dL Cholesterol Total, POC 142 mg/dL Capillary blood 01/20/2024 1 :28 PM CDT us Ori Murillo MD POINT OF CARE TEST O RDERABLES Final Result documented in this encounter Visit Diagnoses Diagnosis Mixed hyperlipidemia- Primary Primary hypertension Unspecified essential hypertension Dyspnea on exertion Other dyspnea and respiratory abnormality documented in this encounter Care Teams Transcription Coordinator Relationship Specialty Start Date End Date Farhat Crocker NP [address] [place] [address] PCP - General Family Medicine 01/20/24 documented as of this encounter
--- OUTSIDE RECORDS SUMMARY | 2024-04-11 03:35 | XMS_ITS | Encounter Summary ---
Author Organization [facility] Address [address] [place] [address] Care Team Providers Care Alarm Installation Technician Name Role Phone Karrie Tompkins MD Primary Care Provider + Reason for Visit * Reason Comments Annual Exam Encounter Details Date Type Department Care Team (Late st Contact Info) Description 10/16/2021 1:30 PM CDT Office Visit [facility] Cardiology [address] [facility] [address] [facility] [address] [place] [address] Rhea Torres NP [address] [facility] [address] [place] [address] Dyspnea on exertion (Primary Dx); Primary hypertension; Mixed hyperlipidemia; Type 2 diabetes mellitus with stage 3b chronic kidney disease, without long-term current use of insulin (HCC); Preoperative cardiovascular examination Social History Tobacco Use Types Packs/Day Years Used Date Smoking Tobacco: Never Smokeless Tobacco: Never Alcohol Use Standard Drinks/Week Comments Never 0 (1 standard drink = 0.6 oz pur e alcohol) AUDIT-C Answer Date Recorded Frequency of Alcohol Consumption Never 02/23/2019 Average Number of Drinks Not on file 019 Frequency of Binge Drinking Not on file 01/31 Comments Unknown Sex and Gender Information Value Date Recorded Sex Assigned at Not on file 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 Gender Identity Not on file Sexual Orientation Not on file documented as of this encounter Last Filed Vital Signs Vital Sign Reading Time Taken Comments Blood Pressure 92/44 10/16/2021 1:40 PM CDT Pulse 74 10/16/2021 1:40 PM CDT Temperature - - Respiratory Rate - - Oxygen Saturation 99% 10/16/2021 1:40 PM CDT Inhaled Oxygen Concentration - - Weight 65.3 kg (144 lb) 10/16/2021 1:40 PM CDT Height 152.4 cm (5') 10/16/2021 1:40 PM CDT Body Mass Index 28.12 10/16/2021 1:40 PM CDT documented in this encounter Progress Notes * Rhea Torres NP - 10/16/2021 1:30 PM CDT Images from the original note were not included. [facility] Cardiology [address] [place] [address] Date of Visit: 10/16/2021 Patient ID: Kandace Cole 1950 Chief Complaint Patient presents with ??? Annual Exam Kandace Cole is a 71 y.o. female who is an established patient of Dr. Murillo with a history of chronic dyspnea, hypertension, hyperlipidemia, returning to the office for annual follow-up. History of Present Illness: Kandace Cole is a 71 y.o. female with past medical history of diet-controlled type 2 diabetes, CKD stage 3 , hyper lipidemia, depression, hypertension, hypothyroidism, iron deficiency anemia, macular degeneration, Ferrell's esophagus is here for evaluation for dyspnea on exertion. Patient was in [place] and moved to this area recently. She was evaluated in [place] by stress test about couple years ago that was unremarkable. 02/23/2019 initial consultation: Complains of dyspnea on exertion for the last couple years specially walking half a mi or going up stairs. She did have chest pain, left-sided aggravated by moving the left shoulder and stress test in [place] to was negative. She admits to heartburn when she eats and relieved by antacids. This has not changed form many years. Denies lower limb edema, orthopnea, parox ysmal nocturnal dyspnea, dizziness, syncope. She reports that she was exposed to secondhand smokingall her life. Head brother at age 69 with massive myocardial infarction. 04/06/2019 follow-up visit with GRITTING MACHINE OPERATOR: She returns for follow-up of her dyspnea [...] chest pain recently. 10/12/2019 follow-up visit with GRITTING MACHINE OPERATOR: She returns for six-month follow-up. She reports [...] palpitations at night. 10/16/2021 follow-up visit with GRITTING MACHINE OPERATOR: She is here for annual follow-up. Over [...] stayed the same over the last year. Records that I personally reviewed on the day of this visit include: (the interpretation is outlined in the HPI above) 10/10/[address] Murillo I have also reviewed: allergies, current medications, past family history, past medical history, past social history, past surgical history and problem list Medical History: Past Medical History: Diagnosis Date ??? Ferrell's esophagus ??? COPD (chronic obstructive pulmonary disease) (CMS/HCC) (HCC) ??? Depression ??? Heart murmur ??? Hyperlipidemia ??? Hypertension ??? Iron deficiency anemia ??? Raynaud's disease ??? Sleep apnea Past Surgical History: Procedure Laterality Date ??? APPENDECTOMY ??? CARPAL TUNNEL RELEASE Bilateral ??? CATARACT EXTRACTION ??? HYSTERECTOMY ??? LAMINECTOMY ??? ROTATOR CUFF REPAIR Left ??? TONSILLECTOMY Social History Tobacco Use ??? Smoking status: Never Smoker ??? Smokeless tobacco: Never Used Substance and Sexual Activity ??? Drug use: Never ??? Sexual activity: None Alcohol Use: Not on file Family History Problem Relation Age of Onset ??? Heart attack Mother ??? Heart attack Brother Review of Systems Constitutional: Negative for diaphoresis, fever, malaise/fatigue, weight gain and weight loss. HENT: Negative for hearing loss. Eyes: Negative for visual disturbance. Cardiovascular: Negative for chest pain, claudication, dyspnea on exertion, leg swelling, orthopnea, palpitations, paroxysmal nocturnal dyspnea and syncope. Respiratory: Negative for cough, hemoptysis, shortness of breath, snoring and wheezing. Hematologic/Lymphatic: Does not bruise/bleed easily. Skin: Negative for poor wound healing and rash. Musculoskeletal: Negative for joint pain and myalgias. Gastrointestinal: Negative for heartburn, nausea and vomiting. Genitourinary: Negative for hematuria. Neurological: Negative for dizziness, headaches and light-headedness. Psychiatric/Behavioral: Negative for depression. The patient is not nervous/anxious. Vital Signs: BP (!) 92/44 (BP Location: Right arm, Patient Position: Sitting) Pulse 74 Ht 152.4 cm (5') Wt65.3 kg (144 lb) SpO2 99% BMI 28.12 kg/m?? Physical Exam Constitutional: General: She is [...] Musculoskeletal: Cervical back: Decreased range of motion. Skin: General: Skin is warm and dry. Neurological: Mental Status: She is alert and oriented to person, place, and time. Psychiatric: Mood and Affect: Mood normal. Behavior: Behavior normal. Allergies Allergen Reactions ??? Bethanechol Unknown ??? Cyclobenzaprine Unknown ??? Eggshell Membrane Unknown ??? Fluoxetine Unknown ??? Latex Unknown ??? Meperidine Unknown ??? Naproxen Unknown ??? Sulfa (Sulfonamide Antibiotics) Unknown ??? Travoprost Unknown Current Outpatient Medications: ??? buPROPion SR (WELLBUTRIN SR) 100 mg 12 hr tablet, Take 100 mg by mouth 2 (two) times a day, Disp: , Rfl: ??? Bydureon BCise 2 mg/0.85 mL auto-injector, , Disp: , Rfl: ??? calcitRIOL (ROCALTROL) 0.25 mcg capsule, Take 0.25 mcg by mouth 3 (three) times a week, Disp: ,Rfl: ??? carvedilol (COREG) 6.25 mg tablet, Take 6.25 mg by mouth 2 (two) times a day, Disp: , Rfl: ??? cholecalciferol (VITAMIN D-3) 2000 unit tablet, Take 2,000 Units by mouth 2 (two) times a day, Disp: , Rfl: ??? cyanocobalamin (Vitamin B-12) 500 mcg tablet, Take 500 mcg by mouth daily, Disp: , Rfl: ??? escitalopram (LEXAPRO) 20 mg tablet, Take 20 mg by mouth daily, Disp: , Rfl: ??? furosemide (LASIX) 20 mg tablet, Take 20 mg by mouth every other day One pill every other day, Disp: , Rfl: ??? latanoprost (XALATAN) 0.005 % ophthalmic solution, daily, Disp: , Rfl: ??? lisinopril (PRINIVIL,ZESTRIL) 20 mg tablet, Take 20 mg by mouth daily, Disp: , Rfl: ??? meclizine (ANTIVERT) 25 mg tablet, Take 25 mg by mouth 3 (three) times a day as needed for dizziness, Disp: , Rfl: ??? pravastatin (PRAVACHOL) 40 mg tablet, Take 40 mg by mouth daily, Disp: , Rfl: ??? QUEtiapine XR (SEROquel XR) 200 mg 24 hr tablet, Take 200 mg by mouth nightly, Disp: , Rfl: ??? pantoprazole DR (PROTONIX) 40 mg EC tablet, Take 40 mg by mouth daily (Patient not taking: Reported on 10/16/2021), Disp: , Rfl: No results found for: POTASSIUM, BUNSER, CREATININE, CHOL, TRIG, LDL, LDLCALC, HDL No results found for: WBC, HGB, HCT, MCV, PLT Assessment: Diagnoses and all orders for this visit: Dyspnea on exertion (Primary) Primary hypertension Mixed hyperlipidemia Type 2 diabetes mellitus with stage 3b chronic kidney disease, without long-term current use of insulin (HCC) Preoperative cardiovascular examination Plan/Recommendations: She has chronic dyspnea which remains unchanged. PCP has done PFTs in the past but did not advise any kind of inhaler. She has a history of secondhand smoke exposure. Echocardiogram we did in the past showed normal cardiac structure and function. She is not hypertensive. Continue carvedilol and lisinopril. She has a history of hyperlipidemia. Continue pravastatin. She reports her last hemoglobin A1c went below 6. She makes efforts to maintain and even lose weight with dietary modifications. CKD is now being followed by mirror framer. She was recently started on calcitriol. Continue Nephrology follow-up. From a cardiac standpoint she appears stable and there is no indication to perform any cardiac testing before she would have cervical spine surgery. She appears a reasonable candidate for this. However her CKD would increase her perioperative morbidity and hypotension should be avoided to maintain renal perfusion. Return to the office to see Dr. Murillo in 12 months. Call us sooner with questions or concerns. 10/16/2021 CYNDI Marcum- Nurse Practitioner with [facility] Cardiology This note is dictated and transcribed using [employer] Direct Software. Footwear Sales Representative variancesmay occur. Despite proofreading, typographical errors may occur. documented in this encounter Plan of Treatment Not on file documented as of this encounter Visit Diagnoses Diagnosis Dyspnea on exertion- Primary Other dyspnea and respiratory abnormality Primary hypertension Unspecified essential hypertension Mixed hyperlipidemia Type 2 diabetes mellitus with stage 3b chronic kidney disease, without long-term current use of insulin (HCC) Preoperative cardiovascular examination Pre-operative cardiovascular examination documented in this encounter Discontinued Medications Medication Sig Discontinue Reason Start Date End Da te citalopram (CeleXA) 40 mg tablet Take 40 mg by mouth daily Alternate therapy 10/16/2021 documented as of this encounter Historical Medications * This list may reflect changes made after this encounter. calcitRIOL (ROCALTROL) 0.25 mcg capsule Take 1 capsule (0.25 mcg total) by mouth 3 (three) times a week meclizine (ANTIVERT) 25 mg tablet Take 1 tablet (25 mg total) by mouth 3 (three) times a day as needed for dizziness 07/13/2021 escitalopram (LEXAPRO) 20 mg tablet Take 1 tablet (20 mg total) by mouth daily 07/20/2021 added in this encounter Care Teams Alarm Installation Technician Relationship Specialty Start Date End Date Karrie Tompkins MD PCP - General Family Medicine 11/21/18 01/19/24 documented as of this encounter
--- OUTSIDE RECORDS SUMMARY | 2024-04-11 03:35 | XMS_ITS | CONTINUITY OF CARE DOCUMENT ---
Author Name jossyjoanpat Address Unknown Organization [facility] Address [address] [place] [address] Phone [phone] Care Team Providers Care Document Restorer Name Role Phone Aaron Conte MD Unavailable FLEX SANTOS MD Unavailable [phone] FLEX SANTOS MD Unavailable [phone] INSURANCE PROVIDERS Payer name Policy type / Coverage type Jeannette red libertarian ID [id number] MEDICARE COMPLETE HMO Other [id number]
--- OUTSIDE RECORDS SUMMARY | 2024-04-11 03:35 | XMS_ITS | Encounter Summary ---
Author Organization [facility] Address [address] [place] [address] Care Team Providers Care Chemical Engineering Intern Name Role Phone Karrie Tompkins MD Primary Care Provider + Reason for Visit * Reason Comments Follow-up 1 yr f/u Hypertension Hyperlipidemia Encounter Details Date Type Department Care Team (Latest Contact Info) Description 10/22/2022 11:30 AM CDT Office Visit [facility] Cardiology [address] [place] [address] Ori Murillo MD [facility] [address] Mixed hyperlipidemia (Primary Dx); Primary hypertension; [...] on file 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 Gender Identity Not on file Sexual Orientation Not on file documented as of this encounter Last Filed Vital Signs Vital Sign Reading Time Taken Comments Blood Pressure 126/58 10/22/2022 11:31 AM CDT Pulse 99 10/22/2022 11:31 AM CDT Temperature - - Respiratory Rate - - Oxygen Saturation 98% 10/22/2022 11:31 AM CDT Inhaled Oxygen Concentration - - Weight 66.3 kg (146 lb 1.6 oz) 10/22/2022 11:31 AM CDT Height 152.4 cm (5') 10/22/2022 11:31 AM CDT Body Mass Index 28.53 10/22/2022 11:31 AM CDT documented in this encounter Progress Notes * Ori Murillo MD - 10/22/2022 11:30 AM CDT [facility] Cardiology [address] [place] [address] Date of Visit: 10/22/2022 Patient ID: Kandace Cole 1950 Chief Complaint Patient presents with Follow-up 1 yr f/u Hypertension Hyperlipidemia Kandace Cole is a 72 y.o. female who is an established patient of Dr. Murillo with a history of chronic dyspnea, hypertension, hyperlipidemia, returning to the office for preoperative assessment. History of Present Illness: Kandace Cole is a 72 y.o. female with past medical history of diet-controlled type 2 diabetes, CKD stage 3 , hyper lipidemia, depression, hypertension, hypothyroidism, iron deficiency anemia, macular degeneration, Ferrell's esophagus is here for evaluation for dyspnea on exertion. Patient was in [place] and moved to this area recently. She was evaluated in [place] by stress test about couple years ago that was unremarkable. 02/23/2019 initial consultation: Complains of dyspnea on exertion for the last couple years specially walking half a mi or going up stairs. She did have chest pain, left-sided aggravated by moving the left shoulder and stress test in [place] to was negative. She admits to heartburn when she eats and relieved by antacids. This has not changed form many years. Denies lower limb edema, orthopnea, parox ysmal nocturnal dyspnea, dizziness, syncope. She reports that she was exposed to secondhand smokingall her life. Head brother at age 69 with massive myocardial infarction. 04/06/2019 follow-up visit with MEDICAL OFFICE PROFESSIONAL INSTRUCTOR: She returns for follow-up of her dyspnea [...] chest pain recently. 10/12/2019 follow-up visit with MEDICAL OFFICE PROFESSIONAL INSTRUCTOR: She returns for six-month follow-up. She reports [...] palpitations at night. 10/16/2021 follow-up visit with MEDICAL OFFICE PROFESSIONAL INSTRUCTOR: She is here for annual follow-up. Over [...] the last year. 04/12/2022 office visit with MEDICAL OFFICE PROFESSIONAL INSTRUCTOR. She returns to the office at my request for reassessment prior to cervical spine surgery. We discussed the surgery at her last visit but it has been 6 months since Devin seen her. The significant change in her health since then was a fall which sounded like an orthostatic syncopal event in the setting of hyponatremia, resulted in facial fractures, and she was transferred from [place] to [facility] for further evaluation and treatment. Her carvedilol [...] grandson. She underwent upper back surgery at [facility] in May 2022 and did well. Shortness of breath on exertion is better than before. Denies chest pain, lower extremity edema, palpitations, dizzinessor syncope. She did gain 10 lb compared to last visit. Medical History: Past Medical History: Diagnosis Date Ferrell's esophagus COPD (chronic obstructive pulmonary disease) ([facility]) Depression Heart murmur Hyperlipidemia Hypertension Iron deficiency anemia Raynaud's disease Sleep apnea Past Surgical History: Procedure Laterality Date APPENDECTOMY CARPAL TUNNEL RELEASE Bilateral CATARACT EXTRACTION HYSTERECTOMY LAMINECTOMY ROTATOR CUFF REPAIR Left TONSILLECTOMY Social History Tobacco Use Smoking status: Never Smokeless tobacco: Never Substance and Sexual Activity Drug use: Never Sexual activity: None Alcohol Use: Not At Risk (02/23/2019) AUDIT-C Frequency of Alcohol Consumption: Never Average Number of Drinks: Not on file Frequency of Binge Drinking: Not on file Family History Problem Relation Age of Onset Heart attack Mother Heart attack Brother Review of Systems Constitutional: Positive for weight gain. Negative for diaphoresis, fever, malaise/fatigue and weight loss. HENT: Negative for hearing [...] patient is not nervous/anxious. Vital Signs: BP 126/58 (BP Location: Left arm, Patient Position: Sitting) Pulse 99 Ht 152.4 cm (5') Wt 66.3 kg (146 lb 1.6 oz) SpO2 98% BMI 28.53 kg/m?? Physical Exam Constitutional: General: She is [...] 40 mg tablet, , Disp: , Rfl: cyanocobalamin (Vitamin B-12) 500 mcg tablet, Take 1 tablet (500 mcg total) by mouth daily, Disp: ,Rfl: escitalopram (LEXAPRO) 20 mg tablet, Take 1 tablet (20 mg total) by mouth daily, Disp: , Rfl: furosemide (LASIX) 20 mg tablet, Take 1 tablet (20 mg total) by mouth every other day One pill every other day, Disp: , Rfl: latanoprost (XALATAN) 0.005 % ophthalmic solution, daily, Disp: , Rfl: lisinopril (PRINIVIL,ZESTRIL) 20 mg tablet, Take 1 tablet (20 mg total) by mouth daily, Disp: , Rfl: meclizine [...] by mouth nightly, Disp: , Rfl: vitamins A,C,D-jwgm-ezwska (PreserVision AREDS) 2,148 mcg-113 mg-45 mg-17.4mg tablet, 1 tablet, Disp: , Rfl: Bydureon BCise 2 mg/0.85 mL auto-injector, , Disp: , Rfl: No results found for: POTASSIUM, BUNSER, CREATININE, CHOL, TRIG, LDL, LDLCALC, HDL No results found for: WBC, HGB, HCT, MCV, PLT Assessment: Diagnoses and all orders for this visit: Mixed hyperlipidemia (Primary) Primary hypertension Dyspnea on exertion Plan/Recommendations: She has chronic dyspnea which remains unchanged. PCP has done PFTs in the past but did not advise any kind of inhaler. She has a history of secondhand smoke exposure. Echocardiogram 2020 we did in the past showed normal cardiac structure and function. She is not hypertensive. Continue carvedilol and lisinopril. Blood pressure today 126/58 She has a history of hyperlipidemia. Continue pravastatin. Lipid panel done today October 22, 2022 shows LDL 81, HDL 28 and triglycerides 211. CKD is followed by programmer analyst Dr. Reyna. Continue Nephrology follow-up. She takes Lasix 20 mg every other day. Keep the previously scheduled follow-up with Dr. Murillo in 12months. Call us sooner with questions or concerns. Ori Murillo MD This note is dictated and transcribed using [employer] Direct Software. Java Grails Developer variancesmay occur. Despite proofreading, typographical errors may occur. documented in this encounter Miscellaneous Notes * Addendum Note - Nori Rogers MA - 10/22/2022 11:30 AM CDTAddended by: NORI ROGERS on: 10/25/2022 03:22 PM Modules accepted: Orders documented in this encounter Plan of Treatment Not on file documented as of this encounter Procedures Procedure Name Priority Date/Time Associated Diagnosis Comments POCT LIPID PANEL Routine 10/22/2022 3:20 PM CDT Mixed hyperlipidemia documented in this encounter Results * POCT lipid panel (10/22/2022 3:20 PM CDT) Cholesterol, POC 151 mg/dL Comment:GLU = 160 HDL, POC 28 mg/dL Triglycerides, POC 211 mg/dL LDL Cholesterol POC 81 mg/dL Chol/HDL Ratio, POC 2.9 Non-HDL Cholesterol, POC 123 mg/dL Cholesterol Total, POC 151 mg/dL Capillary blood 10/22/2022 3 :20 PM CDT us Ori Murillo MD POINT OF CARE TEST O RDERABLES Final Result documented in this encounter Visit Diagnoses Diagnosis Mixed hyperlipidemia- Primary Primary hypertension Unspecified essential hypertension Dyspnea on exertion Other dyspnea and respiratory abnormality documented in this encounter Care Teams Chemical Engineering Intern Relationship Specialty Start Date End Date Karrie Tompkins MD PCP - General Family Medicine 11/21/18 01/19/24 documented as of this encounter
--- OUTSIDE RECORDS SUMMARY | 2024-04-11 03:35 | XMS_ITS | Encounter Summary ---
Author Organization [facility] Address [address] [place] [address] Care Team Providers Care Animal Skinner Name Role Phone Karrie Tompkins MD Primary Care Provider + Reason for Visit * Reason Comments Surgical Clearance Encounter Details Date Type Department Care Team (Late st Contact Info) Description 04/12/2022 9:30 AM SOLAR PROJECT COORDINATION SPECIALIST Office Visit [facility] Cardiology [address] [facility] [address] [facility] [address] [place] [address] Rhea Torres NP [address] [place] [address] Dyspnea on exertion (Primary Dx); Primary hypertension; Mixed hyperlipidemia; Type 2 diabetes mellitus with stage 3b chronic kidney disease, without long-term current use of insulin (HCC); Preoperative cardiovascular examination Social History Tobacco Use Types Packs/Day Years Used Date Smoking Tobacco: Never Smokeless Tobacco: Never Tobacco Cessation:Counseling Given: Not Answered Alcohol Use Standard Drinks/Week Comments Never 0 (1 standard drink = 0.6 oz pur e alcohol) AUDIT-C Answer Date Recorded Frequency of Alcohol Consumption Never 02/23/2019 Average Number of Drinks Not on file 019 Frequency of Binge Drinking Not on file 01/31 Comments Unknown Sex and Gender Information Value Date Recorded Sex Assigned at Not on file Legal Sex Female 8:14 PM SOLAR PROJECT COORDINATION SPECIALIST Gender Identity Not on file Sexual Orientation Not on file documented as of this encounter Last Filed Vital Signs Vital Sign Reading Time Taken Comments Blood Pressure 114/50 04/12/2022 9:33 AM SOLAR PROJECT COORDINATION SPECIALIST Pulse 73 04/12/2022 9:33 AM SOLAR PROJECT COORDINATION SPECIALIST Temperature - - Respiratory Rate - - Oxygen Saturation 99% 04/12/2022 9:33 AM SOLAR PROJECT COORDINATION SPECIALIST Inhaled Oxygen Concentration - - Weight 61.7 kg (136 lb) 04/12/2022 9:33 AM SOLAR PROJECT COORDINATION SPECIALIST Height 152.4 cm (5') 04/12/2022 9:33 AM SOLAR PROJECT COORDINATION SPECIALIST Body Mass Index 26.56 04/12/2022 9:33 AM SOLAR PROJECT COORDINATION SPECIALIST documented in this encounter Progress Notes * Rhea Torres NP - 04/12/2022 9:30 AM CST Images from the original note were not included. [facility] Cardiology [address] [place] [address] Date of Visit: 04/12/2022 Patient ID: Kandace Cole 1950 Chief Complaint Patient presents with Surgical Clearance Kandace Cole is a 72 y.o. female [...] for dyspnea on exertion. Patient was in [place] and moved to this area recently. She was evaluated in [place] by stress test about couple years ago that was unremarkable. 02/23/2019 initial consultation: Complains of dyspnea on exertion for the last couple years specially walking half a mi or going up stairs. She did have chest pain, left-sided aggravated by moving the left shoulder and stress test in [place] to was negative. She admits to heartburn when she eats and relieved by antacids. This has not changed form many years. Denies lower limb edema, orthopnea, parox ysmal nocturnal dyspnea, dizziness, syncope. She reports that she was exposed to secondhand smokingall her life. Head brother at age 69 with massive myocardial infarction. 04/06/2019 follow-up visit with DIRECT CUSTOMER SERVICE REPRESENTATIVE: She returns for follow-up of her dyspnea [...] chest pain recently. 10/12/2019 follow-up visit with DIRECT CUSTOMER SERVICE REPRESENTATIVE: She returns for six-month follow-up. She reports [...] palpitations at night. 10/16/2021 follow-up visit with DIRECT CUSTOMER SERVICE REPRESENTATIVE: She is here for annual follow-up. Over [...] the last year. 04/12/2022 office visit with DIRECT CUSTOMER SERVICE REPRESENTATIVE. She returns to the office at my [...] facial fractures, and she was transferred from [place] to [facility] for further evaluation and treatment. Her [...] normal intervals, rate 76 beats per minute Records that I personally reviewed on the day of this visit include: (the interpretation is outlined in the HPI above) 10/16/2021 office note from myself, 02/14/2022 [facility] discharge summary, today's ECG. I have also reviewed: allergies, current medications, past family history, past medical history, past social history, past surgical history and problem list Medical History: Past Medical History: Diagnosis Date Ferrell's esophagus COPD [facility]chronic obstructive [facility] ([facility]) Depression Heart murmur Hyperlipidemia Hypertension Iron deficiency anemia Raynaud's disease Sleep apnea Past Surgical History: Procedure Laterality Date APPENDECTOMY CARPAL TUNNEL RELEASE Bilateral CATARACT EXTRACTION HYSTERECTOMY LAMINECTOMY ROTATOR CUFF REPAIR Left TONSILLECTOMY Social History Tobacco Use Smoking status: Never Smokeless tobacco: Never Substance and Sexual Activity Drug use: Never Sexual activity: None Alcohol Use: Not on [...] patient is not nervous/anxious. Vital Signs: BP 114/50 (BP Location: Left arm, Patient Position: Sitting) Pulse 73 Ht 152.4 cm (5') Wt 61.7 kg (136 lb) SpO2 99% BMI 26.56 kg/m?? Physical Exam Constitutional: General: She is [...] normal. Behavior: Behavior normal. Allergies Allergen Reactions Bethanechol Unknown Cyclobenzaprine Unknown Eggshell Membrane Unknown Fluoxetine Unknown Latex Unknown Meperidine Unknown Naproxen Unknown Sulfa (Sulfonamide Antibiotics) Unknown Travoprost Unknown Current Outpatient Medications: buPROPion SR (WELLBUTRIN SR) 100 mg 12 hr tablet, Take 100 mg by mouth 2 (two) times a day, Disp: ,Rfl: Bydureon BCise 2 mg/0.85 mL auto-injector, , Disp: , Rfl: calcitRIOL (ROCALTROL) 0.25 mcg capsule, Take 0.25 mcg by mouth 3 (three) times a week, Disp: , Rfl: carvedilol (COREG) 6.25 mg tablet, Take 6.25 mg by mouth 2 (two) times a day, Disp: , Rfl: cholecalciferol (VITAMIN D-3) 2000 unit tablet, Take 2,000 Units by mouth 2 (two) times a day, Disp: , Rfl: citalopram (CeleXA) 40 mg tablet, , Disp: , Rfl: escitalopram (LEXAPRO) 20 mg tablet, Take 20 mg by mouth daily, Disp: , Rfl: furosemide (LASIX) 20 mg tablet, Take 20 mg by mouth every other day One pill every other day, Disp: , Rfl: latanoprost (XALATAN) 0.005 % ophthalmic solution, daily, Disp: , Rfl: lisinopril (PRINIVIL,ZESTRIL) 20 mg tablet, Take 20 mg by mouth daily, Disp: , Rfl: meclizine (ANTIVERT) 25 mg tablet, Take 25 mg by mouth 3 (three) times a day as needed for dizziness, Disp: , Rfl: pantoprazole DR (PROTONIX) 40 mg EC tablet, Take 40 mg by mouth daily, Disp: , Rfl: polyvinyl alcohol (LIQUIFILM TEARS) 1.4 % ophthalmic solution, Administer 1 drop into affected eye(s) every 4 (four) hours as needed, Disp: , Rfl: pravastatin (PRAVACHOL) 40 mg tablet, Take 40 mg by mouth daily, Disp: , Rfl: QUEtiapine XR (SEROquel XR) 200 mg 24 hr tablet, Take 200 mg by mouth nightly, Disp: , Rfl: vitamins A,C,L-qept-szxlci (PreserVision AREDS) 2,148 mcg-113 mg-45 mg-17.4mg tablet, 1 tablet, Disp: , Rfl: cyanocobalamin (Vitamin B-12) 500 mcg tablet, Take 500 mcg by mouth daily (Patient not taking: Reported on 04/12/2022), Disp: , Rfl: No results found for: [...] has a history of hyperlipidemia. Continue pravastatin. Hemoglobin A1c 2 months ago was 5.1. She has made dietary changes and lost weight. CKD is followed by bufferer Dr. Reyna. Continue Nephrology follow-up. From a cardiac standpoint she appears stable and there is no indication to perform any cardiac testing before she would have cervical spine surgery. She appears a reasonable candidate for this. However her CKD would increase her perioperative morbidity and hypotension should be avoided to maintain renal perfusion. Keep the previously scheduled follow-up with Dr. Murillo in 6 months. Call us sooner with questions or concerns. 04/12/2022 CYNDI Marcum- Nurse Practitioner with [facility] Card[facility] This note is dictated and transcribed using [employer] Direct Software. Engraving Supervisor variancesmay occur. Despite proofreading, typographical errors may occur. R PROJECT COORDINATION SPECIALIST documented in this encounter Miscellaneous Notes * Addendum Note - Jazmin Gurrola MA - 04/12/2022 9:30 AM CSTAddended by: JAZMIN GURROLA on: 04/12/2022 10:53 AM Modules accepted: Orders R PROJECT COORDINATION SPECIALIST documented in this encounter Plan of Treatment Not on file documented as of this encounter Procedures Procedure Name Priority Date/Time Associated Diagnosis Comments ECG 12-LEAD Routine 04/12/2022 Preoperative cardiovascular examination documented in this encounter Results * ECG 12 lead (04/12/2022) Rhea oTrres NP ECG ORDERABLES Final Res ult documented in this encounter Visit Diagnoses Diagnosis Dyspnea on exertion- Primary Other dyspnea and respiratory abnormality Primary hypertension Unspecified essential hypertension Mixed hyperlipidemia Type 2 diabetes mellitus with stage 3b chronic kidney disease, without long-term current use of insulin (HCC) Preoperative cardiovascular examination Pre-operative cardiovascular examination documented in this encounter Historical Medications * This list may reflect changes made after this encounter. vitamins A,C,B-mxov-bbxrl r (PreserVision AREDS) 2,148 mcg-113 mg-45 mg-17.4mg tablet 1 tablet polyvinyl alcohol (LIQUIFILM TEARS) 1.4 % ophthalmic solution Administer 1 drop into affected eye(s) every 4 (four) hours as needed 02/19/2022 citalopram (CeleXA) 40 mg tablet 04/07/2022 added in this encounter Care Teams Animal Skinner Relationship Specialty Start Date End Date Karrie Tompkisn MD PCP - General Family Medicine 11/21/18 01/19/24 documented as of this encounter
--- OUTSIDE RECORDS SUMMARY | 2024-04-11 03:35 | XMS_ITS | Encounter Summary ---
Author Organization [facility] Address [address] [place] [address] Care Team Providers Care Betting Agency Manager Name Role Phone Karrie Tompkins MD Primary Care Provider + Encounter Details Date Type Department Care Team (Latest Contact Info) Description 11/30/2021 7:47 AM CDT - 11/30/2021 8:00 AM CDT Hospital Encounter [facility] Rad[facility] [address] [place] [id number] Discharge Disposition: Discharge to home or self care Social History Tobacco Use Types Packs/Day Years [...] on file Legal Sex Female 8:14 PM 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 HELPER Gender Identity Not on file Sexual Orientation Not on file documented as of this encounter Medications at Time of Discharge buPROPion SR (WELLBUTRIN SR) 100 mg 12 hr tablet Take 1 tablet (100 mg total) by mouth 2 (two) times a day Bydureon BCise 2 mg/0.85 mL auto-injector 04/07/2020 calcitRIOL (ROCALTROL) 0.25 mcg capsule Take 1 capsule (0.25 mcg total) by mouth 3 (three) times a week carvedilol (COREG) 6.25 mg tablet Take 1 tablet (6.25 mg total) by mouth 2 (two) times a day cholecalciferol (VITAMIN D-3) 2000 unit tablet Take 1 tablet (2,000 Units total) by mouth 2 (two) times a day cyanocobalamin (Vitamin B-12) 500 mcg tabletIndication s:Prevention of Vitamin B12 Deficiency Take 1 tablet (500 mcg total) by mouth daily escitalopram (LEXAPRO) 20 mg tablet Take 1 tablet (20 mg total) by mouth daily 07/20/2021 furosemide (LASIX) 20 mg tablet Take 1 tablet (20 mg total) by mouth every other day One pill every other day latanoprost (XALATAN) 0.005 % ophthalmic solution daily 01/01/2019 LISINOPRIL ORAL Take 10 mg by mouth daily meclizine (ANTIVERT) 25 mg tablet Take 1 tablet (25 mg total) by mouth 3 (three) times a day as needed for dizziness 07/13/[address] (PROTONIX) 40 mg EC tablet Take 1 tablet (40 mg total) by mouth daily pravastatin (PRAVACHOL) 40 mg tablet Take 1 tablet (40 mg total) by mouth daily QUEtiapine XR (SEROquel XR) 200 mg 24 hr tablet Take 1 tablet (200 mg total) by mouth nightly 02/27/2020 documented as of this encounter Discharge Disposition Disposition Code Departure Means Destination Discharge to home or self care documented in this encounter Plan of Treatment Not on file documented as of this encounter Procedures Procedure Name Priority Date/Time Associated Diagnosis Comments NEURO CT MR OUTSIDE REFERENCE Routine 11/30/2021 7:47 AM CDT Diagnosis unknown documented in this encounter Results * Neuro CT MR Outside Reference (11/30/2021 7:47 AM CDT) Impressions RAD_PACS_[facility] - 11/30/2021 7:47 AM CDT These images are for Reference purposes only and have not been reviewed by [facility] Radiology. ??There will be no report generated by a [facility] Radiologist. Narrative RAD_PACS_[facility] - 11/30/2021 7:47 AM CDT EXAMINATION: ??Images For Reference Purposes Only us Sky Leon MD PhD IMG CT PROCEDURES Final R esult RAD_PACS_[facility] documented in this encounter Visit Diagnoses Not on filedocumented in this encounter Care Teams Betting Agency Manager Relationship Specialty Start Date End Date Karrie Tompkins MD PCP - General Family Medicine 11/21/18 01/19/24 documented as of this encounter
--- OUTSIDE RECORDS SUMMARY | 2024-04-11 03:35 | XMS_ITS | Encounter Summary ---
Author Organization [facility] Address [address] [place] [address] Care Team Providers Care Consultant Technology Name Role Phone Karrie Tompkins MD Primary Care Provider + Reason for Visit * Reason Comments Follow-up 6 mo follow up on HT N, ANN, HLD Encounter Details Date Type Department Care Team (Late Contact Info) Description 10/10/2020 11:00 AM CDT Office Visit [facility] Cardiology [address] [facility] [address] [place] [address] Ori Murillo MD [address] [place] [id number] Dyspnea on exertion (Primary Dx); Essential hypertension; Mixed hyperlipidemia; Type 2 diabetes mellitus with stage 3 chronic kidney disease, without long-term current use of insulin, unspecified whether stage 3a or 3b CKD (HCC) Social History Tobacco Use Types Packs/Day [...] on file 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 Gender Identity Not on file Sexual Orientation Not on file documented as of this encounter Last Filed Vital Signs Vital Sign Reading Time Taken Comments Blood Pressure 118/62 10/10/2020 11:01 AM CDT Pulse 91 10/10/2020 11:01 AM CDT Temperature - - Respiratory Rate - - Oxygen Saturation 95% 10/10/2020 11:01 AM CDT Inhaled Oxygen Concentration - - Weight 69.4 kg (153 lb) 10/10/2020 11:01 AM CDT Height 152.4 cm (5') 10/10/2020 11:01 AM CDT Body Mass Index 29.88 10/10/2020 11:01 AM CDT documented in this encounter Progress Notes * Ori Murillo MD - 10/10/2020 11:00 AM CDT [facility] Cardiology [address] [place] [address] Date of Visit: 10/12/2019 Patient ID: Kandace Cole 1950 Chief Complaint: Kandace Cole is a 70 y.o. female who is a newly established patient of Dr. Murillo returning for follow-up of her dyspnea on exertion. History of Present Illness: Kandace Cole is a 70 y.o. female with past medical history of diet-controlled type 2 diabetes, CKD stage 3 , hyper lipidemia, depression, hypertension, hypothyroidism, iron deficiency anemia, macular degeneration, Ferrell's esophagus is here for evaluation for dyspnea on exertion. Patient was in [place] and moved to this area recently. She was evaluated in [place] by stress test about couple years ago that was unremarkable. 02/23/2019 initial consultation: Complains of dyspnea on exertion for the last couple years specially walking half a mi or going up stairs. She did have chest pain, left-sided aggravated by moving the left shoulder and stress test in [place] to was negative. She admits to heartburn when she eats and relieved by antacids. This has not changed form many years. Denies lower limb edema, orthopnea, parox ysmal nocturnal dyspnea, dizziness, syncope. She reports that she was exposed to secondhand smokingall her life. Head brother at age 69 with massive myocardial infarction. 04/06/2019 follow-up visit with CYBER SECURITY ADMINISTRATOR: She returns for follow-up of her dyspnea [...] chest pain recently. 10/12/2019 follow-up visit with CYBER SECURITY ADMINISTRATOR: She returns for six-month follow-up. She reports [...] has the episodes of palpitations at night. Review of Systems Constitutional: Negative for diaphoresis, fever, malaise/fatigue, weight gain and weight loss. HENT: Negative for hearing loss. Eyes: Positive for visual disturbance. Cardiovascular: Positive for dyspnea on exertion and palpitations. Negative for chest pain, claudication, leg swelling, orthopnea, paroxysmal nocturnal dyspnea and syncope. Respiratory: Negative for cough, hemoptysis, shortness of breath, snoring and wheezing. Hematologic/Lymphatic: Does not bruise/bleed easily. Skin: Negative for poor wound healing and rash. Musculoskeletal: Positive for joint pain and myalgias. Fibromyalgia Gastrointestinal: Negative for heartburn, nausea and vomiting. Genitourinary: Negative for hematuria. Neurological: Negative for dizziness, headaches and light-headedness. Psychiatric/Behavioral: Positive for depression. The patient is not nervous/anxious. Vital Signs: BP 118/62 (BP Location: Left arm, Patient Position: Sitting) Pulse 91 Ht 152.4 cm (5') Wt 69.4 kg (153 lb) SpO2 95% BMI 29.88 kg/m?? Physical Exam Constitutional: General: She is not in acute distress. Appearance: She is well-developed. Comments: Pleasant woman, obese body habitus. HENT: Head: Normocephalic and atraumatic. Right Ear: External ear normal. Left Ear: External ear normal. Nose: Nose normal. Mouth/Throat: Pharynx: No posterior oropharyngeal erythema. Eyes: General: No scleral icterus. Conjunctiva/sclera: Conjunctivae normal. Pupils: Pupils are equal, round, and reactive to light. Neck: Vascular: No JVD. Trachea: No tracheal deviation. Cardiovascular: Rate and Rhythm: Normal rate and regular rhythm. Heart sounds: Normal heart sounds. No murmur heard. Pulmonary: Effort: Pulmonary effort is normal. No respiratory distress. Breath sounds: Normal breath sounds. Abdominal: General: Bowel sounds are normal. Palpations: Abdomen is soft. Tenderness: There is no abdominal tenderness. Musculoskeletal: General: Normal range of motion. Cervical back: Normal range of motion. Right lower leg: No edema. Left lower leg: No edema. Skin: General: Skin is warm and dry. Findings: No rash. Neurological: General: No focal deficit present. [...] mL auto-injector, , Disp: , Rfl: ??? carvedilol (COREG) 6.25 mg tablet, Take 6.25 mg by mouth 2 (two) times a day, Disp: , Rfl: ??? cholecalciferol (Vitamin D3) 2,000 unit tablet, Take 2,000 Units by mouth 2 (two) times a day, Disp: , Rfl: ??? citalopram (CeleXA) 40 mg tablet, Take 40 mg by mouth daily, Disp: , Rfl: ??? cyanocobalamin (Vitamin B-12) 500 mcg tablet, Take 500 mcg by mouth daily, Disp: , Rfl: ??? furosemide (LASIX) 40 mg tablet, Take 20 mg by mouth every other day One pill every other day, Disp: , Rfl: ??? latanoprost (XALATAN) 0.005 % ophthalmic solution, daily, Disp: , Rfl: ??? lisinopril (PRINIVIL,ZESTRIL) 20 mg tablet, Take 20 mg by mouth daily, Disp: , Rfl: ??? pantoprazole DR (PROTONIX) 40 mg EC tablet, Take 40 mg by mouth daily, Disp: , Rfl: ??? pravastatin (PRAVACHOL) 40 mg tablet, Take 40 mg by mouth daily, Disp: , Rfl: ??? QUEtiapine XR (SEROquel XR) 200 mg 24 hr tablet, Take 200 mg by mouth nightly, Disp: , Rfl: Lipid panel 04/11/2020-LDL 67, HDL 42 and triglycerides 253 Assessment: Diagnoses and all orders for this visit: Dyspnea on exertion (Primary) Essential hypertension Mixed hyperlipidemia Type 2 diabetes mellitus with stage 3 chronic kidney disease, without long-term current use of insulin, unspecified whether stage 3a or 3b CKD (CMS/[facility]) Plan/Recommendations: Her dyspnea on exertion is unchanged. Her PCP did PFTs earlier this year but did not recommend any inhalers afterwards. She never smoked cigarettes but she was around who was smoker. She was walking outside for exercise prior to the pandemic, but now she wants to remain indoors. She goes upand down the stairs in her home for exercise inside. She is tolerating this without difficulty. Echo cardiogram shows normal structure and function. She looks euvolemic on physical exam today. She had chest pain in the past that was evaluated by school laboratory technician in the [facility] area where she previously lived. I was able to retrieve some records but unfortunately was not able to get the stress test. She reports that the stress test was performed sometime around 2018 and she was told was unremarkable. I reviewed the signs and symptoms of angina with her and when she should notify us if this would begin to occur. I explained that if her symptoms are concerning, we would re-evaluate herwith a new stress test. She has not had any chest pain since I last saw her in April. Patient does have rare episodes of palpitations and at this time will observe however if these become more frequent will order one-week event monitor. -in regards to hyperlipidemia, continue statin. Lipid panel today shows LDL 67, HDL 42 and triglycerides 253 -regards to hypertension, blood pressure is controlled. Continue current treatment. Return to the office to see Dr. Murillo in 6 months. Call us sooner with questions or concerns. Ori Murlilo MD This note is dictated and transcribed using [employer] Direct Software. Hearing Care Practitioner variancesmay occur. Despite proofreading, typographical errors may occur. documented in this encounter Plan of Treatment Not on file documented as of this encounter Visit Diagnoses Diagnosis Dyspnea on exertion- Primary Other dyspnea and respiratory abnormality Essential hypertension Unspecified essential hypertension Mixed hyperlipidemia Type 2 diabetes mellitus with stage 3 chronic kidney disease, without long-term current use of insulin, unspecified whether stage 3a or 3b CKD (HCC) documented in this encounter Discontinued Medications Medication Sig Discontinue Reason Start Date End Da te glimepiride (AMARYL) 1 mg tabletIndications:type 2 diabetes mellitus Take 1 mg by mouth daily before breakfast Therapy completed 10/10/2020 documented as of this encounter Historical Medications * This list may reflect changes made after this encounter. cyanocobalamin (Vitamin B-12) 500 mcg tabletIndications :Prevention of Vitamin B12 Deficiency Take 1 tablet (500 mcg total) by mouth daily citalopram (CeleXA) 40 mg tablet Take 40 mg by mouth daily 10/16/2021 added in this encounter Care Teams Consultant Technology Relationship Specialty Start Date End Date Karrie Tompkins MD PCP - General Family Medicine 11/21/18 01/19/24 documented as of this encounter
--- OUTSIDE RECORDS SUMMARY | 2024-04-11 03:35 | XMS_ITS | Encounter Summary ---
Author Organization [facility] Address [address] [place] [address] Care Team Providers Care Ultrasound Spec Name Role Phone Karrie Tompkins MD Primary Care Provider + Reason for Visit * Reason Comments Shortness of Breath Hypertension Encounter Details Date Type Department Care Team (Late st Contact Info) Description 10/12/2019 10:30 AM CDT Office Visit 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 Gender Identity Not on file Sexual Orientation Not on file documented as of this encounter Last Filed Vital Signs Vital Sign Reading Time Taken Comments Blood Pressure 144/60 10/12/2019 10:11 AM CDT Pulse 82 10/12/2019 10:11 AM CDT Temperature - - Respiratory Rate - - Oxygen Saturation 98% 10/12/2019 10:11 AM CDT Inhaled Oxygen Concentration - - Weight 75.3 kg (166 lb) 10/12/2019 10:11 AM CDT Height - - Body Mass Index 31.37 04/06/2019 10:42 AM PROFILING MACHINE OPERATOR documented in this encounter Patient Instructions * Patient Instructions* Rhea Torres NP - 10/12/2019 10:30 AM CDT Common warning signs of a heart attack: 1. Chest discomfort. Most heart attacks involve discomfort in the center of the chest that lasts more than a few minutes, or that goes away and comes back. It can feel like uncomfortable pressure, squeezing, fullness or pain. 2. Discomfort or pain in the jaw, neck, or back. 3. Discomfort or pain in one or both arms and/or shoulders. 4. Shortness of breath with or without chest discomfort. 4. Other - lightheadedness, nausea/vomitting, a cold sweat. documented in this encounter Progress Notes * Rhea Torres NP - 10/12/2019 10:[address] [facility] Cardiology [address] [place] [address] Date of Visit: 10/12/2019 Patient ID: Kandace Cole 1950 Chief Complaint: Kandace Cole is a 69 y.o. female who is a newly established patient of Dr. Murillo returning for follow-up of her dyspnea on exertion. History of Present Illness: Kandace Cole is a 69 y.o. female with past medical history of [...] the left shoulder and stress test in [place] to was negative. She admits to heartburn when she eats and relieved by antacids. This has not changed form many years. Denies lower limb edema, orthopnea, parox ysmal nocturnal dyspnea, dizziness, syncope. She reports that she was exposed to secondhand smokingall her life. Head brother at age 69 with massive myocardial infarction. 04/06/2019 follow-up visit with VBA DEVELOPER: She returns for follow-up of her dyspnea [...] chest pain recently. 10/12/2019 follow-up visit with VBA DEVELOPER: She returns for six-month follow-up. She reports no changes in her health. She had been walking outside for exercise but stopped doing this because of the pandemic. Her ANN is unchanged. She has not had any chest pain. Records that I personally reviewed on the day of this visit include: (the interpretation is outlined in the HPI above) 04/06/2019 office note from myself, 04/30/2019 documentation note in epic I have also reviewed: allergies, current medications, past family history, past medical history, past social history, past surgical history and problem list Review of Systems Constitution: Negative for diaphoresis, fever, malaise/fatigue, weight gain and weight loss. HENT: Negative for hearing loss. Eyes: Positive for visual disturbance. Cardiovascular: Positive for dyspnea on exertion. Negative for chest pain, claudication, leg swelling, [...] patient is not nervous/anxious. Vital Signs: BP 144/60 Pulse 82 Wt 75.3 kg (166 lb) SpO2 98% BMI 31.37 kg/m?? Physical Exam Constitutional: She is oriented to person, place, and time. She appears well- developed and well-nourished. No distress. Pleasant woman, obese body habitus. HENT: Head: Normocephalic and atraumatic. Nose: Nose normal. Wearing a mask Eyes: Pupils are equal, round, and reactive to light. Conjunctivae and EOM are normal. No scleral icterus. Neck: Normal range of motion. No JVD present. No tracheal deviation present. Cardiovascular: Normal rate, regular rhythm and normal heart sounds. No murmur heard. Pulmonary/Chest: Effort normal and breath sounds normal. No respiratory distress. Abdominal: Soft. Bowel sounds are normal. There is no abdominal tenderness. Musculoskeletal: Normal range of motion. General: No edema. Neurological: She is alert and oriented to person, place, and time. Skin: Skin is warm and dry. Psychiatric: She has a normal mood and affect. Allergies Allergen Reactions ??? Bethanechol Unknown ??? Cyclobenzaprine Unknown ??? Eggshell Membrane Unknown ??? Fluoxetine Unknown ??? Latex Unknown ??? Meperidine Unknown ??? Naproxen Unknown ??? Sulfa (Sulfonamide Antibiotics) Unknown ??? Travoprost Unknown Current Outpatient Medications: ??? buPROPion SR (WELLBUTRIN SR) 100 mg 12 hr tablet, Take 100 mg by mouth 2 (two) times a day, Disp: , Rfl: ??? carvedilol (COREG) 6.25 mg tablet, Take 6.25 mg by mouth 2 (two) times a day, Disp: , Rfl: ??? cholecalciferol (Vitamin D3) 2,000 unit tablet, Take 2,000 Units by mouth 2 (two) times a day, Disp: , Rfl: ??? furosemide (LASIX) 40 mg tablet, Take 20 mg by mouth every other day One pill every other day, Disp: , Rfl: ??? glimepiride (AMARYL) 1 mg tablet, Take 1 mg by mouth daily before breakfast, Disp: , Rfl: ??? latanoprost (XALATAN) 0.005 % ophthalmic solution, daily, Disp: , Rfl: ??? lisinopril (PRINIVIL,ZESTRIL) 20 mg tablet, Take 20 mg by mouth daily, Disp: , Rfl: ??? pantoprazole DR (PROTONIX) 40 mg EC tablet, Take 40 mg by mouth daily, Disp: , Rfl: ??? pravastatin (PRAVACHOL) 40 mg tablet, Take 40 mg by mouth daily, Disp: , Rfl: ??? zolpidem (AMBIEN) 5 mg tablet, 1 tablet daily, Disp: , Rfl: 0 ??? ARIPiprazole (ABILIFY) 5 mg tablet, Take 5 mg by mouth daily, Disp: , Rfl: 0 ??? linaGLIPtin (TRADJENTA) 5 mg tablet, Take 5 mg by mouth daily, Disp: , Rfl: Assessment: Diagnoses and all orders for this visit: Dyspnea on exertion (Primary) History of COPD Diastolic dysfunction without heart failure History of chest pain Plan/Recommendations: Her dyspnea on exertion is unchanged. Her PCP did PFTs earlier this year but did not recommend any inhalers afterwards. She was walking outside for exercise prior to the pandemic, but now she wants to remain indoors. She goes up and down the stairs in her home for exercise inside. She is toleratingthis without difficulty. Echocardiogram done last year showed diastolic dysfunction and I explained this diagnosis to her atthe last visit. She is not exhibiting any signs or symptoms of decompensated heart failure. She had chest pain in the past that was evaluated by robotype operator in the [facility] area where she previously lived. I [...] since I last saw her in April. Return to the office to see Dr. Murillo in 6 months. Call us sooner with questions or concerns. Rhea Torres, ANP-BC Nurse Practitioner with [facility] This note is dictated and transcribed using [employer] Fluency Direct Software. Retail Beauty Specialist variancesmay occur. Despite proofreading, typographical errors may occur. documented in this encounter Plan of Treatment Not on file documented as of this encounter Visit Diagnoses Diagnosis Dyspnea on exertion- Primary Other dyspnea and respiratory abnormality History of COPD Diastolic dysfunction without heart failure History of chest pain documented in this encounter Historical Medications * This list may reflect changes made after this encounter. glimepiride (AMARYL) 1 mg tabletIndication s:type 2 diabetes mellitus Take 1 mg by mouth daily before breakfast 1 added in this encounter Care Teams Ultrasound Spec Relationship Specialty Start Date End Date Karrie Tompkins MD PCP - General Family Medicine 11/21/18 01/19/24 documented as of this encounter
--- OUTSIDE RECORDS SUMMARY | 2024-04-11 03:35 | XMS_ITS | Encounter Summary ---
Author Organization [facility] Address [address] [place] [address] Phone Care Team Providers Care Odd Job Laborer Name Role Phone Karrie Tompkins MD Primary Care Provider + Encounter Details Date Type Department Care Team (Late st Contact Info) Description 12/01/2021 Orders Only [facility] Neurosurgery [address] [facility] [address] [place] [id number] Landon Lopes, DO [address] [place] [address] Neck pain (Primary Dx) Social History Tobacco Use Types [...] on file 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
--- OUTSIDE RECORDS SUMMARY | 2024-04-11 03:35 | XMS_ITS | Encounter Summary ---
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 To call back to do reg/intake. IMAGING? * Telephone Encounter - Radha Perez CNA - 01/02/2020 2:24 PM CDT WQ CER-Lvm for pt. To call back to do reg/intake. IMAGING? documented in this encounter Plan of Treatment Not on file documented as of this encounter Visit Diagnoses Not on filedocumented in this encounter Care Teams Drawer Upfitter Relationship Specialty Start Date End Date Karrie Tompkins MD PCP - General Family Medicine 11/21/18 01/19/24 documented as of this encounter
--- OUTSIDE RECORDS SUMMARY | 2024-04-11 03:35 | XMS_ITS | Encounter Summary ---
Author Organization [facility] Address [address] [place] [address] Care Team Providers Care Warehouse Shipping Receiving Clerk Name Role Phone Karrie Tompkins MD Primary Care Provider + Reason for Referral * Cardiology (Routine) - Closed Specialty Diagnoses / Procedures Referred By Contac t Referred To Contact Diagnoses Essential hypertension Dyspnea on exertion Procedures Transthoracic Echo Complete W Doppler/CF Zaina Murillo MD [address] [address] Phone: tel: fax: [facility] Referral ID Status Reason Start Date Expiration Date Visits Re quested Visits Authorized [id number] Closed 04/11/2020 05/11/2021 1 1 GER ORACLE RETAIL Reason for Visit * Reason Comments NAN 6 month f/u. Pt not having any problems at this time. 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 Encounter Details Date Type Department Care Team (Latest Contact Info) Description 04/11/2020 10:30 AM MANAGER ORACLE RETAIL Office Visit [facility] Cardiology [address] [place] [address] Zaina Murillo MD [address] [address] Essential hypertension (Primary Dx); Dyspnea on exertion; Type 2 diabetes mellitus with stage 3 chronic kidney disease, without long-term current use of insulin, unspecified whether stage 3a or 3b CKD (CMS/HCC); Mixed hyperlipidemia Social History Tobacco Use Types Packs/Day Years [...] on file Legal Sex Female 8:14 PM MANAGER ORACLE RETAIL Gender Identity Not on file Sexual Orientation Not on file documented as of this encounter Last Filed Vital Signs Vital Sign Reading Time Taken Comments Blood Pressure 136/80 04/11/2020 10:32 AM MANAGER ORACLE RETAIL Pulse 85 04/11/2020 10:32 AM MANAGER ORACLE RETAIL Temperature - - Respiratory Rate - - Oxygen Saturation 91% 04/11/2020 10:32 AM MANAGER ORACLE RETAIL Inhaled Oxygen Concentration - - Weight 75.8 kg (167 lb 1.6 oz) 04/11/2020 10:32 AM MANAGER ORACLE RETAIL Height 152.4 cm (5') 04/11/2020 10:32 AM MANAGER ORACLE RETAIL Body Mass Index 32.63 04/11/2020 10:32 AM MANAGER ORACLE RETAIL documented in this encounter Progress Notes * Zaina Murillo MD - 04/11/2020 10:30 AM CST [facility] Cardiology [address] [place] [address] Date of Visit: 10/12/2019 Patient ID: Kandace [...] for dyspnea on exertion. Patient was in [place] and moved to this area recently. She was evaluated in [place] by stress test about couple years ago [...] massive myocardial infarction. 04/06/2019 follow-up visit with CLIENT EXPERIENCE MANAGER: She returns for follow-up of her dyspnea [...] chest pain recently. 10/12/2019 follow-up visit with CLIENT EXPERIENCE MANAGER: She returns for six-month follow-up. She reports [...] night. Also she has episodes of vertigo. Review of Systems Constitution: Negative for diaphoresis, [...] patient is not nervous/anxious. Vital Signs: BP 136/80 (BP Location: Left arm, Patient Position: Sitting) Pulse 85 Ht 152.4 cm (5') Wt 75.8 kg (167 lb 1.6 oz) SpO2 91% BMI 32.63 kg/m?? Physical Exam Constitutional: She is oriented [...] Diagnoses and all orders for this visit: Essential hypertension (Primary) - Transthoracic Echo Complete W Doppler/CF; Future Dyspnea on exertion - Transthoracic Echo Complete W Doppler/CF; Future Type 2 diabetes mellitus with stage 3 chronic kidney disease, without long-term current use of insulin, unspecified whether stage 3a or 3b CKD ([facility]) Mixed hyperlipidemia Plan/Recommendations: Her dyspnea on exertion is unchanged. Her PCP did PFTs earlier this year but did not recommend any inhalers afterwards. She was walking outside for exercise prior to the pandemic, but now she wants to remain indoors. She goes up and down the stairs in her home for exercise inside. She is toleratingthis without difficulty. Due to continued dyspnea on exertion will order echocardiogram to assess cardiac structure and function. She had chest pain in the past that was evaluated by scalder in the [facility] area where she previously lived. [...] Call us sooner with questions or concerns. Zaina Murillo MD This note is dictated and transcribed using creads Direct Software. Hadoop Architect variancesmay occur. Despite proofreading, typographical errors may occur. GER ORACLE RETAIL documented in this encounter Miscellaneous Notes * Addendum Note - Nori Rogers MA - 04/11/2020 10:30 AM CSTAddended by: NORI ROGERS on: 04/11/2020 11:03 AM Modules accepted: Orders GER ORACLE RETAIL documented in this encounter Plan of Treatment Not on file documented as of this encounter Procedures Procedure Name Priority Date/Time Associated Diagnosis Comments POCT LIPID PANEL Routine 04/11/2020 11:0 1 AM MANAGER ORACLE RETAIL Mixed hyperlipidemia documented in this encounter Results * Transthoracic Echo Complete W Doppler/CF (04/27/2020 10:17 AM MANAGER ORACLE RETAIL) Anatomical Region Laterality Modality Ultrasound 04/27/2020 10:1 7 AM MANAGER ORACLE RETAIL Narrative 04/27/2020 12:39 PM MANAGER ORACLE RETAIL [facility] Cardiology [address], [place] [address] [address], [place] [address] P:[phone] P:[phone] Echocardiographic Report Patient Name: KANDACE COLE : 11--1950 Study Date: 04/27/2020 10:17:22 AM Gender: F Tech: Location: [place] Ref.Provider: DANIELLE Height(Cm): 152 BSA: 1.73 Weight(Kg): 75.75 Heart Rate: 85 BP: 117/65 Quality: Definity contrast agent used to enhance endocardial border definition Order Provider: ZAINA MURILLO Procedures: Echocardiographic Report: Transthoracic echocardiogram with complete 2D, M-Mode, color Doppler examination and Definity contrast. Indications: Hypertension, and Dyspnea on Exertion. Measurements: 2D/M Mode ?Doppler ? Measurement ?Value ?Normal Range ? Measurement ?Value ?Normal Range ? EF Mod ? 76 ?SIMIN ?2.34 ? [ 2.00 - 4.00 ] cm2 ? EF MM ?69 ? [ 55 - 70 ] % ?AV Mean PG ? 5 ?mmHg ? LVIDd MM ? 4.00 ? [ 3.90 - 5.30 ] cm ? AV Peak Christo ?1.60 ? m/s ? LVIDs MM ? 2.47 ? [ 2.30 - 3.90 ] cm ? AV Peak PG ? 10 ? mmHg ? LVPWd MM ? 0.87 ? [ 0.60 - 1.00 ] cm ? AV VTI ? 0.33 ? cm ? IVSd MM ?1.07 ? [ 0.60 - 0.90 ] cm ? LVOT Diam ?2.00 ? [ 1.70 - 2.10 ] cm ? LA Dimension MM ?4.67 ? [ 2.70 - 3.80 ] cm ? LVOT Peak Christo ?1.19 ? [ 0.70 - 1.10 ] m/s ? AoR Diam MM ?2.93 ? [ 2.60 - 3.70 ] cm ? LVOT VTI ? 0.29 ? cm ? LA Volume Index ?19.00 ?[ 16.00 - 28.00 ] cc/m2 ?MV E Peak Christo ?0.92 ? [ 0.60 - 1.30 ] m/s ? ACS MM ? 1.47 ? cm ? MV A Peak Christo ?1.35 ? [ 0.40 - 0.80 ] m/s ? MV Decel Time ?454 ?[ 150 - 200 ] msec ? PV Peak Christo ?1.35 ? [ 0.40 - 0.80 ] m/s ? E' ? 0.07 ? E/E' ? 14 ? Findings: Interpretation Site: Exam was interpreted at [facility]. Left Ventricle: Normal left ventricular systolic function. No focal wall motion abnormalities. Normal left ventricular size. Definity contrast agent used to visually enhance endocardial wall motion and contractility. Lot Number: [id number]. Left ventricular wall thickness upper limits of normal. Impaired diastolic relaxation Grade I. Ejection fraction is visually estimated at 65-70 %. Right Ventricle: Normal right ventricular size. Normal right ventricular systolic function. Left Atrium: The left atrium is normal in size. Right Atrium: The right atrium is normal in size. Atrial Septum: Normal atrial septum. Mitral Valve: Normal appearance of the mitral valve. Mild mitral annular calcification. Trivial regurgitation of the mitral valve. Aortic Valve: Aortic valve not well visualized. No evidence of hemodynamically significant aortic stenosis by Doppler. Peak gradient of 10.0 mmHg. Mean gradient of 5.0 mmHg. Valve area of 2.34 cm2. Tricuspid Valve: Normal appearance of the tricuspid valve. Right ventricular systolic pressure could not be estimated due to inadequate visualization of the tricuspid regurgitation jet. Trivial regurgitation in the tricuspid valve. Pulmonic Valve: Pulmonic valve not well visualized. Trivial regurgitation in the pulmonic valve. Pericardium: Pericardium not well visualized. Aorta: Aortic root not well visualized. No aortic root dilation. Mild aortic root calcification. IVC: Normal size and normal respiratory collapse consistent with normal right atrial pressure (<5 mmHg). Conclusions: Normal left ventricular systolic function. No focal wall motion abnormalities. Normal left ventricular size. Definity contrast agent used to visually enhance endocardial wall motion and contractility. Lot Number: [id number]. Left ventricular wall thickness upper limits of normal. Impaired diastolic relaxation Grade I. Ejection fraction is visually estimated at 65-70 %. Normal appearance of the mitral valve. Mild mitral annular calcification. Trivial regurgitation of the mitral valve. Aortic valve not well visualized. No evidence of hemodynamically significant aortic stenosis by Doppler. Peak gradient of 10.0 mmHg. Mean gradient of 5.0 mmHg. Valve area of 2.34 cm2. Normal sinus rhythm. Technically difficult study with limited views. Electronically Signed By: Yusuf Novak MD 2020-04-27 12:39:52 MANAGER ORACLE RETAIL Procedure Note Gustavo Novak MD - 04/27/2020 [facility] Cardiology [address] [address] [address] [address] P:[phone] P:[phone] Echocardiographic Report Patient Name: KANDACE COLEPatient ID: [id number] : [id number] Date: 04/27/2020 10:17:22 AM Gender: FAccession #: [id number] Tech: GMLocation: [place] Ref.Provider: Tiffanyight(Cm): 152 BSA: 1.73Weight(Kg): 75.75 Heart Rate: 85BP: 117/65 Quality: Definity contrast agent used to enhance endocardial borderdefinitionOrder Provider: ZAINA MURILLO Procedures: Echocardiographic Report: Transthoracic echocardiogram with complete 2D, M-Mode, color Dopplerexamination and Definity contrast. Indications: Hypertension, and Dyspnea on Exertion. Measurements: 2D/M Mode Doppler Measurement Value Normal Range MeasurementValue Normal Range EF Mod 76 AVA2.34 [ 2.00 - 4.00 ] cm2 EF MM 69 [ 55 - 70 ] % AV Mean PG 5mmHg LVIDd MM 4.00 [ 3.90 - 5.30 ] cm AV Peak Vel1.60 m/s LVIDs MM 2.47 [ 2.30 - 3.90 ] cm AV Peak PG 10mmHg LVPWd MM 0.87 [ 0.60 - 1.00 ] cm AV VTI0.33 cm IVSd MM 1.07 [ 0.60 - 0.90 ] cm LVOT Diam2.00 [ 1.70 - 2.10 ] cm LA Dimension MM 4.67 [ 2.70 - 3.80 ] cm LVOT Peak Vel1.19 [ 0.70 - 1.10 ] m/s AoR Diam MM 2.93 [ 2.60 - 3.70 ] cm LVOT VTI0.29 cm LA Volume Index 19.00 [ 16.00 - 28.00 ] cc/m2 MV E Peak Vel0.92 [ 0.60 - 1.30 ] m/s ACS MM 1.47 cm MV A Peak Vel1.35 [ 0.40 - 0.80 ] m/s MV Decel Nlur945 [ 150 - 200 ] msec PV Peak Vel1.35 [ 0.40 - 0.80 ] m/s E'0.07 E/E' 14 Findings: Interpretation Site: Exam was interpreted at [facility]. Left Ventricle: Normal left ventricular systolic function. No focal wall motionabnormalities. Normal left ventricular size. Definity contrast agent used to visually enhanceendocardial wall motion and contractility. Lot Number: [id number]. Left ventricular wallthickness upper limits of normal. Impaired diastolic relaxation Grade I. Ejection fraction isvisually estimated at 65-70 %. Right Ventricle: Normal right ventricular size. Normal right ventricular systolicfunction. Left Atrium: The left atrium is normal in size. Right Atrium: The right atrium is normal in size. Atrial Septum: Normal atrial septum. Mitral Valve: Normal appearance of the mitral valve. Mild mitral annular calcification.Trivial regurgitation of the mitral valve. Aortic Valve: Aortic valve not well visualized. No evidence of hemodynamicallysignificant aortic stenosis by Doppler. Peak gradient of 10.0 mmHg. Mean gradient of 5.0mmHg. Valve area of 2.34 cm2. Tricuspid Valve: Normal appearance of the tricuspid valve. Right ventricular systolicpressure could not be estimated due to inadequate visualization of the tricuspidregurgitation jet. Trivial regurgitation in the tricuspid valve. Pulmonic Valve: Pulmonic valve not well visualized. Trivial regurgitation in the pulmonicvalve. Pericardium: Pericardium not well visualized. Aorta: Aortic root not well visualized. No aortic root dilation. Mild aortic rootcalcification. IVC: Normal size and normal respiratory collapse consistent with normal rightatrial pressure (<5 mmHg). Conclusions: Normal left ventricular systolic function. No focal wall motionabnormalities. Normal left ventricular size. Definity contrast agent used to visually enhanceendocardial wall motion and contractility. Lot Number: [id number]. Left ventricular wallthickness upper limits of normal. Impaired diastolic relaxation Grade I. Ejection fraction isvisually estimated at 65-70 %. Normal appearance of the mitral valve. Mild mitral annular calcification.Trivial regurgitation of the mitral valve. Aortic valve not well visualized. No evidence of hemodynamicallysignificant aortic stenosis by Doppler. Peak gradient of 10.0 mmHg. Mean gradient of 5.0mmHg. Valve area of 2.34 cm2. Normal sinus rhythm. Technically difficult study with limited views. Electronically Signed By: Yusuf Novak MD 2020-04-27 12:39:52 MANAGER ORACLE RETAIL Zaina Murillo MD CV ECHO PROCEDURES F inal Result * POCT lipid panel (04/11/2020 11:01 AM MANAGER ORACLE RETAIL) Cholesterol, POC 160 mg/dL Comment:GLU = 162 HDL, POC 42 mg/dL Triglycerides, POC 253 mg/dL LDL Cholesterol POC 67 mg/dL Chol/HDL Ratio, POC 3.8 Non-HDL Cholesterol, POC 118 mg/dL Cholesterol Total, POC 160 mg/dL Capillary blood 04/11/2020 1 1:01 AM MANAGER ORACLE RETAIL us Zaina Murillo MD POINT OF CARE TEST O RDERABLES Final Result documented in this encounter Visit Diagnoses Diagnosis Essential hypertension- Primary Unspecified essential hypertension Dyspnea on exertion Other dyspnea and respiratory abnormality Type 2 diabetes mellitus with stage 3 chronic kidney disease, without long-term current use of insulin, unspecified whether stage 3a or 3b CKD (HCC) Mixed hyperlipidemia Essential hypertension Unspecified essential hypertension Dyspnea on exertion Other dyspnea and respiratory abnormality documented in this encounter Discontinued Medications Medication Sig Discontinue Reason Start Date End Da te ARIPiprazole (ABILIFY) 5 mg tablet Take 5 mg by mouth daily Alternate therapy 02/12/2019 04/11/2020 linaGLIPtin (TRADJENTA) 5 mg tabletIndications:type 2 diabetes mellitus Take 5 mg by mouth daily Therapy completed 04/11/2020 zolpidem (AMBIEN) 5 mg tablet 1 tablet daily Therapy completed 12/15/2018 04/11/2020 documented as of this encounter Historical Medications * This list may reflect changes made after this encounter. QUEtiapine XR (SEROquel XR) 200 mg 24 hr tablet Take 1 tablet (200 mg total) by mouth nightly 02/27/2020 Bydureon BCise 2 mg/0.85 mL auto-injector 04/07/2020 added in this encounter Care Teams Warehouse Shipping Receiving Clerk Relationship Specialty Start Date End Date Karrie Tompkins MD PCP - General Family Medicine 11/21/18 01/19/24 documented as of this encounter
--- OUTSIDE RECORDS SUMMARY | 2024-04-11 03:35 | XMS_ITS | Encounter Summary ---
Author Organization [facility] Address [address] [place] [address] Care Team Providers Care Matrix Supervisor Name Role Phone Karrie Tompkins MD Primary Care Provider + Reason for Visit * Reason Onset Date Comments Retrieved outside records 04/30/2019 Encounter Details Date Type Department Care Team (Late st Contact Info) Description 04/30/2019 Documentation [facility] Cardiology [address] [facility] [address] [facility] [address] [place] [address] Rhea Torres NP [address] [place], [place] [id number] Retrieved outside records Social History Tobacco Use Types Packs/Day Years [...] on file Legal Sex Female 8:14 PM 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 Unfortunately we werenot able to retrieve the stress test. T PROTECTIVE CASEWORKER documented in this encounter Plan of Treatment Not on file documented as of this encounter Visit Diagnoses Not on filedocumented in this encounter Care Teams Matrix Supervisor Relationship Specialty Start Date End Date Karrie Tompkins MD PCP - General Family Medicine 11/21/18 01/19/24 documented as of this encounter
--- OUTSIDE RECORDS SUMMARY | 2024-04-11 03:35 | XMS_ITS | Clinical Summary ---
Author Organization [facility] [address] Address [address] [place] [address] Care Team Providers Care Bench Hand Name Role Phone Farhat Crocker NP Primary Care Provider [phone] Allergies Active Allergy Reactions Criticality Noted Date Comments Bethanechol Unknown 12/09/2009 Cyclobenzaprine Unknown 09/07/2018 Eggshell Membrane Unknown 09/07/2018 Fluoxetine Unknown 09/07/2018 Latex Hives Medium 09/07/2018 Meperidine Unknown 09/07/2018 Naproxen Unknown 09/07/2018 Sulfa (Sulfonamide Antibiotics) Unknown 11/2018 Travoprost Unknown 09/07/2018 Medications buPROPion SR (WELLBUTRIN SR) 100 mg 12 hr tablet Take 1 tablet (100 mg total) by mouth 2 (two) times a day Active latanoprost (XALATAN) 0.005 % ophthalmic solution daily 9 Active furosemide (LASIX) 20 mg tablet Take 1 tablet (20 mg total) by mouth every other day One pill every other day Active LISINOPRIL ORAL Take 10 mg by mouth daily Active carvedilol (COREG) 6.25 mg tablet Take 1 tablet (6.25 mg total) by mouth 2 (two) times a day Active pantoprazole DR (PROTONIX) 40 mg EC tablet Take 1 tablet (40 mg total) by mouth daily Active pravastatin (PRAVACHOL) 40 mg tablet Take 1 tablet (40 mg total) by mouth daily Active cholecalciferol (VITAMIN D-3) 2000 unit tablet Take 1 tablet (2,000 Units total) by mouth 2 (two) times a day Active Bydureon BCise 2 mg/0.85 mL auto-injector 1 Active QUEtiapine XR (SEROquel XR) 200 mg 24 hr tablet Take 1 tablet (200 mg total) by mouth nightly 0 Active cyanocobalamin (Vitamin B-12) 500 mcg tabletIndicatio ns:Prevention of Vitamin B12 Deficiency Take 1 tablet (500 mcg total) by mouth daily Active escitalopram (LEXAPRO) 20 mg tablet Take 1 tablet (20 mg total) by mouth daily 2 Active meclizine (ANTIVERT) 25 mg tablet Take 1 tablet (25 mg total) by mouth 3 (three) times a day as needed for dizziness 2 Active calcitRIOL (ROCALTROL) 0.25 mcg capsule Take 1 capsule (0.25 mcg total) by mouth 3 (three) times a week Active citalopram (CeleXA) 40 mg tablet 3 Active polyvinyl alcohol (LIQUIFILM TEARS) 1.4 % ophthalmic solution Administer 1 drop into affected eye(s) every 4 (four) hours as needed 2 Active vitamins A,C,E-zinc-carlos alberto er (PreserVision AREDS) 2,148 mcg-113 mg-45 mg-17.4mg tablet 1 tablet Active Active Problems Problem Noted Date Diagnosed Date Abdominal pain 12/07/2021 Abnormal serum creatinine level 12/07/2021 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 Chronic depression 12/07/2021 Glaucoma 12/07/2021 Hyperkalemia 12/07/2021 Hyperthyroidism 12/07/2021 Intractable chronic migraine without aura 2021 Anemia 12/07/2021 Leukocytosis 12/07/2021 Macular degeneration 12/07/2021 Migraine 12/07/2021 Mixed collagen vascular disease 12/07/2021 Multiple bruises 12/07/2021 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 Nonexudative age-related macular degeneration Perineal pain 12/07/2021 Pneumonia 12/07/2021 Polyp of colon 12/07/2021 Recurrent major depression in remission 12/08/19 Sciatica 12/07/2021 Sprain of ankle 12/07/2021 Systemic sclerosis 12/07/2021 Arthritis 12/07/2021 Paronychia of toe of right foot 07/25/2021 Onychomycosis of toenail 07/17/2021 Chronic kidney disease 03/30/2019 Chronic obstructive pulmonary disease 03/30/2019 Fibromyalgia 03/30/2019 Hyposmolality 03/30/2019 Raynaud's disease 03/30/2019 Ulnar neuropathy 03/30/2019 Dyspnea on exertion 02/23/2019 Hypertension 02/23/2019 Mixed hyperlipidemia 02/23/2019 Type 2 diabetes mellitus wit h stage 3 chronic kidney disease, without long-term current use of insulin 02/23/2019 Degeneration of cervical intervertebral disc 12/2009 Encounters Date Type Department Care Team Description 01/20/2024 12:30 PM CDT Office Visit [facility] Cardiology [address] [place] [address] Ori Murillo MD Mixed hyperlipidemia (Primary Dx); Primary hypertension; Dyspnea on exertion from Last 3 Months Immunizations Name Administration Dates Next Due DTP 07/18/2011 Influenza, Quadrivalent, Hig h Dose, Preservative Free, Intrr 12/08/2019 Influenza, Quadrivalent, Split, Intramuscular ,12/30/2018 Influenza, Trivalent, High D ose, Split, Preservative Free, Intramuscular 01/25/2019 Niraj (J&J) SARS-CoV-2 Vaccination 06/08/2020 Pneumococcal Conjugate PCV 13 06/30/2018 Pneumococcal Polysaccharide PPV23 07/01/2019 ZOSTER Recombinant 03/18/2019,01/12/2019 Surgical History Surgery Date Site/Laterality Comments ROTATOR CUFF REPAIR Left LAMINECTOMY APPENDECTOMY HYSTERECTOMY CATARACT EXTRACTION CARPAL TUNNEL RELEASE Bilateral TONSILLECTOMY Medical History Medical History Date Comments Hypertension Heart murmur Hyperlipidemia Raynaud's disease Depression Ferrell's esophagus Iron deficiency anemia COPD (chronic obstructive pulmonary disease) (HC C) Sleep apnea Family History Medical History Relation Name Comments Heart attack Brother Heart attack Mother Relation Name Status Comments Brother (Age 69) HEART SHEA CK Father (Age 59) MESOTHELIO PAM Mother (Age 62) LEUKEMIA Social History Tobacco Use Types Packs/Day Years [...] on file Legal Sex Female 8:14 PM 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 Gender Identity Not on file Sexual Orientation Not on file Obstetrics History Last Filed Vital Signs Vital Sign Reading Time Taken Comments Blood Pressure 120/58 01/20/2024 12:41 PM CDT Pulse 91 01/20/2024 12:41 PM CDT Temperature 36.3 ??C (97.3 ??F) 04/27/2020 10:[address] Respiratory Rate - - Oxygen Saturation 99% 01/20/2024 12:41 PM CDT Inhaled Oxygen Concentration - - Weight 66 kg (145 lb 9.6 oz) 01/20/2024 12:41 PM CDT Height 152.4 cm (5') 01/20/2024 12:41 PM CDT Body Mass Index 28.44 01/20/2024 12:41 PM CDT Plan of Treatment Health Maintenance Due Date Last Done Comments Albumin Creatinine Ratio, Urine 1950 Breast Cancer Screening-Mammogram 1950 Colon Cancer Screening-Colonoscopy 1950 Depression Screening 1950 Fall Risk Assessment 1950 Hemoglobin A1C 1950 Hepatitis C Screening 1950 Osteoporosis Screening-Bone Density Scan 1950 eGFR 1950 Dilated Eye Exam 1950 Foot Exam 1950 Hepatitis B Screening 02/12/1968 Well Visit 65+ 2015 DTaP/Tdap/Td Vaccine (2 - Tdap) 07/17/2021 2 Covid-19 Vaccine (2 - 2023-2 5 season) 2023 06/08/2020 Influenza Vaccine (#1) 2023 0, 12/09/2019, 12/08/2019, Additional history exists Lipid Panel 01/19/2025 01/20/2024, 09/30, 04/11/2020, Additional history exists Zoster Vaccine Completed 03/18/2019, 01/12/2019 Pneumococcal vaccine 65+ Completed 07/01/2019, 04/2018 Procedures Procedure Name Priority Date/Time Associated Diagnosis Comments POCT LIPID PANEL Routine 01/20/2024 1:28 PM CDT Mixed hyperlipidemia from Last 3 Months Results * POCT lipid panel (01/20/2024 1:28 PM CDT) Cholesterol, POC 142 mg/dL Comment:GLU = 191 HDL, POC 31 mg/dL Triglycerides, POC 131 mg/dL LDL Cholesterol POC 84 mg/dL Chol/HDL Ratio, POC 2.7 Non-HDL Cholesterol, POC 111 mg/dL Cholesterol Total, POC 142 mg/dL Capillary blood 01/20/2024 1 :28 PM CDT Ori Murillo MD POINT OF CARE TEST O RDERABLES Final Result from Last 3 Months Insurance [employer]IC[employer] [facility] MDCR HMO REF Care Teams Bench Hand Relationship Specialty Start Date End Date Farhat Crocker NP [address] [place] [address] PCP - General Family Medicine 01/20/24
--- OUTSIDE RECORDS SUMMARY | 2024-04-11 03:35 | XMS_ITS | Encounter Summary ---
Author Organization [facility] Address [address] [place] [address] Care Team Providers Care Wire Lather Name Role Phone Karrie Tompkins MD Primary Care Provider + Reason for Visit * Cardiology (Routine) - Closed Specialty Diagnoses / Procedures Referred By Contac t Referred To Contact Diagnoses Essential hypertension Dyspnea on exertion Procedures Transthoracic Echo Complete W Doppler/CF Zaina Murillo MD [facility] [address] Phone: tel: fax: [facility] Referral ID Status Reason Start Date Expiration Date Visits Re quested Visits Authorized [id number] Closed 04/11/2020 05/11/2021 1 1 Encounter Details Date Type Department Care Team (Latest Contact Info) Description 04/27/2020 11:15 AM FUR MIXER OPERATOR Ancillary Procedure [facility] Cardiology [address] [address] [place] [address] Essential hypertension; Dyspnea on exertion Social History Tobacco [...] on file Legal Sex Female 8:14 PM FUR MIXER OPERATOR Gender Identity Not on file Sexual Orientation Not on file documented as of this encounter Last Filed Vital Signs Vital Sign Reading Time Taken Comments Blood Pressure - - Pulse - - Temperature 36.3 ??C (97.3 ??F) 04/27/2020 10:[address] Respiratory Rate - - Oxygen Saturation - - Inhaled Oxygen Concentration - - Weight - - Height - - Body Mass Index - - documented in this encounter Plan of Treatment Not on file documented as of this encounter Procedures Procedure Name Priority Date/Time Associated Diagnosis Comments TRANSTHORACIC ECHO (TTE) COMPLETE W DOPPLER/CF Routine 04/27/2020 10:17 AM FUR MIXER OPERATOR Essential hypertension Dyspnea on exertion documented in this encounter Results * Transthoracic Echo Complete W Doppler/CF (04/27/2020 10:17 AM FUR MIXER OPERATOR) Anatomical Region Laterality Modality Ultrasound 04/27/2020 10:1 7 AM FUR MIXER OPERATOR Narrative 04/27/2020 12:39 PM FUR MIXER OPERATOR [facility] Cardiology [address], [place] [id number] [address], [place] [address] P:[phone] P:[phone] Echocardiographic Report Patient Name: KANDACE COLE : 1950 Study Date: 04/27/2020 10:17:22 AM Gender: F Tech: Location: CT Ref.Provider: DANIELLE Height(Cm): 152 BSA: 1.73 Weight(Kg): [...] Findings: Interpretation Site: Exam was interpreted at [facility]. Left Ventricle: Normal left ventricular systolic function. [...] Signed By: Yusuf Novak MD 2020-04-27 12:39:52 FUR MIXER OPERATOR Procedure Note Gustavo Novak MD - 04/27/2020 [facility] Cardiology [address] [facility] [address], [place] [address] [address], [place] [address] P:[phone] P:[phone] Echocardiographic Report Patient Name: KANDACE COLEPatient ID: [id number] : [id number] Date: 04/27/2020 10:17:22 AM Gender: FAccession #: [id number] Tech: GMLocation: CT Ref.Provider: Tiffanyight(Cm): 152 BSA: 1.73Weight(Kg): 75.75 Heart [...] 0.40 - 0.80 ] m/s MV Decel Coey229 [ 150 - 200 ] msec PV Peak Vel1.35 [ 0.40 - 0.80 ] m/s E'0.07 E/E' 14 Findings: Interpretation Site: Exam was interpreted at [facility]. Left Ventricle: Normal left ventricular systolic function. [...] Signed By: Yusuf Novak MD 2020-04-27 12:39:52 FUR MIXER OPERATOR Zaina Murillo MD CV ECHO PROCEDURES F inal Result documented in this encounter Visit Diagnoses Diagnosis Essential hypertension Unspecified essential hypertension Dyspnea on exertion Other dyspnea and respiratory abnormality documented in this encounter Administered Medications Inactive Administered Medications - up to 3 most recent administrations Medication Order MAR Action Action Date Dose Rate Site perflutren lipid (DEFINITY) 1.5 mL in sodium chloride 0.9% 10 mL syringe 1-10 mL, intravenous, Once in imaging, contrast, Starting on Sat04/27/20 at 1132, For 1 dose Given 04/27/2020 11:53 AM FUR MIXER OPERATOR 1 mL documented in this encounter Orders Medications Ordered That Florentino ht Not Have Been Administered Count Last Ordered Date First Ordered Date perflutren lipid (DEFINITY) 1.5 mL in sodium chloride 0.9% 10 mL syringe 1 04/27/2020 documented in this encounter Care Teams Wire Lather Relationship Specialty Start Date End Date Karrie Tompkins MD PCP - General Family Medicine 11/21/18 01/19/24 documented as of this encounter
--- OUTSIDE RECORDS SUMMARY | 2024-04-11 03:35 | XMS_ITS | Encounter Summary ---
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 See call below. * Telephone Encounter - Radha Perez CNA - 11/30/2021 10:28 AM CDT Annemarie from pt's PCP's office called and said they are unable to find FRANK listed in their system under [facility] Medicare under his NPI or under our group NPI to obtain auth. For pt's 12/07 appt. Melissa-are you able to help obtain auth. For this pt? Waiting on auth. To be faxed and imaging to be pushed. * Telephone Encounter - Yi Rosenthal - 11/29/2021 3:24 PM CDT 09/07/21 MRI report is scanned. Still awaiting imaging. * Telephone Encounter - Radha Perez CNA - 11/29/2021 2:37 PM CDT CER-f/a. Called pt. And reg/intake updated. Records in care Everywhere. Appt .with FRANK on 12/07. PT. TO BRING CD TO APPT. AND TO ARRIVE 45 MINS. EARLY FOR XRAYS. Requested pt's MRI report to be faxed and for PCP to fax pt's [employer] Medicare HMO auth. * Telephone Encounter - Radha Perez CNA - 11/29/2021 2:25 PM CDT Department of Neurological Surgery at [facility] Spine Intake 11/29/21 Kandace Cole 1950 [id number] Karrie Tompkins MD Referring physician PCP Referred to: First Available: Second Opinion: No Diagnosis: NECK PAIN Location (Spinal Area): Cervical Incontinence: No Weakness: Yes LOSS OF BALANCE Numbness: Yes ARMS AND HANDS PAIN IN BACK Duration of symptoms: 1 YEAR HT: 5'1 WT: 140 LBS. BMI: 26.4 Prior spine surgery: YES, 1986-LUMBAR LAMINECTOMY AND 2006-CERVICAL DISC REPLACEMENT [facility] Physical therapy NO Injections NO Are you a current smoker: No Insurance: [facility] MEDICARE HMO Litigation: NO Imaging Done: Yes MRI: 08/2021 Imaging Location: [facility] PT TO BRING CD AND ARRIVE 45 MINS EARLY documented in this encounter Plan of Treatment Not on file documented as of this encounter Visit Diagnoses Not on filedocumented in this encounter Care Teams Concrete Curer Relationship Specialty Start Date End Date Karrie Tompkins MD PCP - General Family Medicine 11/21/18 01/19/24 documented as of this encounter
--- OUTSIDE RECORDS SUMMARY | 2024-04-11 03:35 | XMS_ITS | Encounter Summary ---
Author Organization [facility] Address [address] [place] [address] Care Team Providers Care In Home Sales Representative Name Role Phone Karrie Tompkins MD Primary Care Provider + Reason for Visit * Reason Onset Date Comments Reschedule 04/10/2021 Encounter Details Date Type Department Care Team (Late st Contact Info) Description 04/10/2021 Telephone [facility] Cardiology [address] [place] [address] Yaritza Rogers MA Reschedule Social History Tobacco Use Types Packs/Day Years [...] on file Legal Sex Female 8:14 PM RADIOCOMMUNICATIONS TECHNICIAN Gender Identity Not on file Sexual Orientation Not on file documented as of this encounter Miscellaneous Notes * Telephone Encounter - Yaritza Rogers MA - 04/10/2021 3:25 PM CST 04/10/21- YURY we need to r/s. EMMIE out of office on 04/17/21 OCOMMUNICATIONS TECHNICIAN documented in this encounter Plan of Treatment Not on file documented as of this encounter Visit Diagnoses Not on filedocumented in this encounter Care Teams In Home Sales Representative Relationship Specialty Start Date End Date Karrie Tompkins MD PCP - General Family Medicine 11/21/18 01/19/24 documented as of this encounter
--- OUTSIDE RECORDS SUMMARY | 2024-04-11 03:35 | XMS_ITS | Referral Summary ---
Author Organization [facility] [address] [facility] [facility] [address] Address [address] [place] [address] Care Team Providers Care Fur Stretcher Name Role Phone Farhat Crocker NP Primary Care Provider [phone] Encounters Date Type Department Care Team Description 01/20/2024 12:30 PM CDT Office Visit [facility] Cardiology [address] [place] [address] Ori Murillo MD Mixed hyperlipidemia (Primary Dx); Primary hypertension; Dyspnea on exertion from Last 3 Months Allergies Active Allergy Reactions Criticality Noted Date [...] Recurrent major depression in remission 12/08/19 22 Sciatica 12/07/2021 Sprain of ankle 12/07/2021 Systemic [...] 02/23/2019 Degeneration of cervical intervertebral disc 12/2009 Immunizations Name Administration Dates Next Due DTP 07/18/2011 Influenza, Quadrivalent, Hig h Dose, Preservative Free, Intrr 12/08/2019 Influenza, Quadrivalent, Split, Intramuscular ,12/30/2018 Influenza, Trivalent, High D ose, Split, Preservative Free, Intramuscular 01/25/2019 Niraj (J&J) SARS-CoV-2 Vaccination 06/08/2020 Pneumococcal Conjugate PCV 13 06/30/2018 Pneumococcal Polysaccharide PPV23 07/01/2019 ZOSTER Recombinant 03/18/2019,01/12/2019 Social History Tobacco Use Types Packs/Day Years [...] on file 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
--- OUTSIDE RECORDS SUMMARY | 2024-04-11 03:36 | XMS_ITS | Encounter Summary ---
Author Organization 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
--- OUTSIDE RECORDS SUMMARY | 2024-04-11 03:36 | XMS_ITS | Encounter Summary ---
Author Organization [facility] Address [address] [place] [address] Care Team Providers Care Bucket Operator Name Role Phone Karrie Tompkins MD Primary Care Provider + Reason for Visit * Reason Comments Follow-up HTN,HLD Encounter Details Date Type Department Care Team (Late st Contact Info) Description 04/06/2019 10:30 AM ROUTER OPERATOR RADIAL Office Visit [facility] Cardiology [address] [facility] [address] [place] [address] Rhea Torres, NEAL [address] [facility] [address] [place] [address] Dyspnea on exertion (Primary Dx); Diastolic dysfunction without heart failure; History of COPD Social History Tobacco Use Types Packs/Day Years Used Date Smoking Tobacco: Former Smokeless Tobacco: Never Tobacco Cessation:Counseling Given: Yes Alcohol Use Standard Drinks/Week Comments Never 0 (1 standard drink = 0.6 oz pur e alcohol) AUDIT-C Answer Date Recorded Frequency of Alcohol Consumption Never 02/23/2019 Average Number of Drinks Not on file 019 Frequency of Binge Drinking Not on file 01/31 Comments Unknown Sex and Gender Information Value Date Recorded Sex Assigned at Not on file Legal Sex Female 8:14 PM ROUTER OPERATOR RADIAL Gender Identity Not on file Sexual Orientation Not on file documented as of this encounter Last Filed Vital Signs Vital Sign Reading Time Taken Comments Blood Pressure 140/76 04/06/2019 10:42 AM ROUTER OPERATOR RADIAL Pulse 68 04/06/2019 10:42 AM ROUTER OPERATOR RADIAL Temperature - - Respiratory Rate - - Oxygen Saturation 99% 04/06/2019 10:42 AM ROUTER OPERATOR RADIAL Inhaled Oxygen Concentration - - Weight 69.4 kg (153 lb) 04/06/2019 10:42 AM ROUTER OPERATOR RADIAL Height 154.9 cm (5' 1 ) 04/06/2019 10:42 AM ROUTER OPERATOR RADIAL Body Mass Index 28.91 04/06/2019 10:42 AM ROUTER OPERATOR RADIAL documented in this encounter Progress Notes * Rhea Torres NP - 04/06/2019 10:30 AM CST [facility] Date of Visit: 04/06/2019 Patient ID: Kandace Cole 1950 Chief Complaint: [...] for dyspnea on exertion. Patient was in [place] and moved to this area recently. She was evaluated in [place] by stress test about couple years ago that was unremarkable. 02/23/2019 initial consultation: Complains of dyspnea on exertion for the last couple years specially walking half a mi or going up stairs. She did have chest pain, left-sided aggravated by moving the left shoulder and stress test in [place] to was negative. She admits to heartburn when she eats and relieved by antacids. This has not changed form many years. Denies lower limb edema, orthopnea, parox ysmal nocturnal dyspnea, dizziness, syncope. She reports that she was exposed to secondhand smokingall her life. Head brother at age 69 with massive myocardial infarction. 04/06/2019 follow-up visit with TIMBER SUPERVISOR: She returns for follow-up of her dyspnea [...] has not had any chest pain recently. Records that I personally reviewed on the day of this visit include: (the interpretation is outlined in the HPI above) 02/23/[address] Murillo, 10/30/2018 echocardiogram report I have also reviewed: allergies, current medications, past family history, past medical history, past social history, past surgical history and problem list Review of Systems Constitution: Positive for malaise/fatigue and weight loss. Negative for diaphoresis, fever and weight gain. HENT: Negative for hearing loss. Eyes: Negative for visual disturbance. Cardiovascular: Positive for dyspnea on exertion. Negative for chest pain, claudication, leg swelling, orthopnea, palpitations, paroxysmal nocturnal dyspnea and syncope. Respiratory: Positive for cough. Negative for hemoptysis, shortness of breath, snoring and wheezing. Hematologic/Lymphatic: Does not bruise/bleed easily. Skin: Negative for poor wound healing and rash. Musculoskeletal: Positive for joint pain and myalgias. Fibromyalgia Gastrointestinal: Negative for heartburn, nausea and vomiting. Genitourinary: Negative for hematuria. Neurological: Negative for dizziness, headaches and light-headedness. Psychiatric/Behavioral: Positive for depression. The patient is not nervous/anxious. Vital Signs: BP 140/76 (BP Location: Left arm, Patient Position: Sitting) Pulse 68 Ht 154.9 cm (5' 1 ) Wt 69.4 kg (153 lb) SpO2 99% BMI 28.91 kg/m?? Physical Exam Constitutional: She is oriented to person, place, and time. She appears well- developed and well-nourished. No distress. HENT: Head: Normocephalic and atraumatic. Nose: Nose normal. Mouth/Throat: Mucous membranes are normal. Eyes: Pupils are equal, round, and reactive to light. Conjunctivae and EOM are normal. No scleral icterus. Neck: Normal range of motion. No JVD present. No tracheal deviation present. Cardiovascular: Normal rate, regular rhythm and normal heart sounds. No murmur heard. Pulmonary/Chest: Effort normal and breath sounds normal. No respiratory distress. Abdominal: Soft. Bowel sounds are normal. There is no tenderness. Musculoskeletal: Normal range of motion. General: [...] ??? Travoprost Unknown Current Outpatient Medications: ??? ARIPiprazole (ABILIFY) 5 mg tablet, Take 5 mg by mouth daily, Disp: , Rfl: 0 ??? buPROPion SR (WELLBUTRIN SR) 100 mg [...] ??? furosemide (LASIX) 40 mg tablet, Take 40 mg by mouth daily One pill every other day, Disp: , Rfl: ??? latanoprost (XALATAN) 0.005 % ophthalmic solution, daily, Disp: , Rfl: ??? linaGLIPtin (TRADJENTA) 5 mg tablet, Take 5 mg by mouth daily, Disp: , Rfl: ??? lisinopril (PRINIVIL,ZESTRIL) [...] 1 tablet daily, Disp: , Rfl: 0 Assessment: Diagnoses and all orders for this visit: Dyspnea on exertion (Primary) Diastolic dysfunction without heart failure History of COPD Plan/Recommendations: I reviewed the finding of diastolic dysfunction on her last echocardiogram and how this can cause dyspnea on exertion, but I don't think this would explain all of her dyspnea. It could be an anginal equivalent, but this is less likely given her normal stress test 2 years ago. I more suspect that untreated COPD is contributing to her dyspnea. She has an appointment with her PCP next week to reviewthe results of her PFTs. We will attempt to get a copy of her stress test done at tools administrator's office in the [facility] area couple of years ago. Counseling performed at this visit included signs and symptoms of CHF exacerbation and the difference between cardiac and noncardiac chest pain. Return to the office to see Dr. Murillo in 6 months. Call us sooner with questions or concerns. Rhea Torres, CYNDI- Nurse Practitioner with [facility] This note is dictated and transcribed using Tweet Category Direct Software. [employer] Presser variancesmay occur. Despite proofreading, typographical errors may occur. Cosigned by Ori Murillo MD at 04/07/2019 3:22 PM ROUTER OPERATOR RADIAL ER OPERATOR RADIAL ER OPERATOR RADIAL documented in this encounter Plan of Treatment Not on file documented as of this encounter Visit Diagnoses Diagnosis Dyspnea on exertion- Primary Other dyspnea and respiratory abnormality Diastolic dysfunction without heart failure History of COPD documented in this encounter Historical Medications * This list may reflect changes made after this encounter. cholecalciferol (VITAMIN D-3) 2000 unit tablet Take 1 tablet (2,000 Units total) by mouth 2 (two) times a day linaGLIPtin (TRADJENTA) 5 mg tabletIndications :type 2 diabetes mellitus Take 5 mg by mouth daily 04/11/2020 added in this encounter Care Teams Bucket Operator Relationship Specialty Start Date End Date Karrie Tompkins MD PCP - General Family Medicine 11/21/18 01/19/24 documented as of this encounter
--- OUTSIDE RECORDS SUMMARY | 2024-04-11 03:36 | XMS_ITS | Clinical Summary ---
Author Organization [facility] Address [address] [place] [id number] Phone Care Team Providers Care Mid Level Net Developer Name Role Phone Karrie Tompkins MD Primary Care Provider [phone] Allergies Active Allergy Reactions Criticality Noted Date Comments Bethanechol Unknown 12/09/2009 Cyclobenzaprine Unknown 09/07/2018 Egg-Derived Products 09/07/2018 Other reaction(s): Unknown Fluoxetine 09/07/2018 Other reaction(s): Unknown Latex 09/07/2018 Other reaction(s): Unknown Meperidine 09/07/2018 Other reaction(s): Unknown Naproxen 09/07/2018 Other reaction(s): Unknown Sulfa Antibiotics Unknown 09/07/2018 Travoprost 09/07/2018 Other reaction(s): Unknown Medications Medication Sig Dispensed Refills Start Date End Date Status buPROPion SR (WELLBUTRIN SR) 100 MG 12 hr tablet Take 100 mg by mouth 2 (two) times a day. Active carvedilol (COREG) 6.25 MG tablet Take 6.25 mg by mouth 2 (two) times a day with meals. Active citalopram (CeleXA) 40 MG tablet Take 40 mg by mouth 1 (one) time each day. Active lisinopril (PRINIVIL,ZESTRIL) 20 MG tablet Take 20 mg by mouth 1 (one) time each day. Active pantoprazole (PROTONIX) 40 MG EC tablet Take 40 mg by mouth 1 (one) time each day before breakfast. Active pravastatin (PRAVACHOL) 40 MG tablet Take 40 mg by mouth 1 (one) time each day. Active Cholecalciferol (VITAMIN D3) 2000 units tablet Take by mouth. Active latanoprost (XALATAN) 0.005 % ophthalmic solution 05/07/2019 Active zolpidem (AMBIEN) 5 MG tablet 1 tablet daily 12/15/2018 Active furosemide (LASIX) 20 MG tablet 05/07/2019 Active glimepiride (AMARYL) 1 MG tablet 10/01/2019 Active QUEtiapine XR (SEROquel XR) 200 MG 24 hr tablet Take 200 mg by mouth every night 09/23/2019 Active Tradjenta 5 MG tablet 02/20/2020 Active Bydureon BCise 2 MG/0.85ML auto-injector 05/02/2020 Active OneTouch Verio test strip 10/05/2020 Active Lancets (OneTouch Delica Plus [id number]) misc 10/05/2020 Active cyanocobalamin 500 MCG tablet Take 500 mcg by mouth daily Active Ciclopirox 0.77 % gel APPLY TO THE AFFECTED AND SURROUNDING AREAS OF TOENAIL AND SKIN TWICE DAILY IN THE MORNING AND EVENING 07/18/2021 Active ciclopirox (PENLAC) 8 % solution APPLY TOPICALLY TO THE AFFECTED AREA OF TOENAILS ONCE DAILY PREFERABLY AT BEDTIME OR 8 HOURS BEFORE WASHING 07/17/2021 Active escitalopram (LEXAPRO) 20 MG tablet Take 20 mg by mouth 1 (one) time each day 07/20/2021 Active meclizine (ANTIVERT) 25 MG tablet 07/13/2021 Active calcitriol (ROCALTROL) 0.25 MCG capsule TAKE ONE CAPSULE BY MOUTH 3 TIMES A WEEK ON SATURDAY, SATURDAY, SATURDAY 38 capsule 3 02/19/2022 Active Active Problems Problem Noted Date Diagnosed Date Type 1 diabetes mellitus without complication Abdominal pain 12/07/2021 Cardiomegaly 12/07/2021 Chronic intractable migraine without aura 2021 Glaucoma 12/07/2021 Hyperkalemia 12/07/2021 Hyperthyroidism 12/07/2021 Leukocytosis 12/07/2021 Macular degeneration 12/07/2021 Mixed collagen vascular disease 12/07/2021 Multiple bruising 12/07/2021 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 12/07/2021 Nonexudative age-related mac ular degeneration, unspecified eye 12/07/2021 Perineal pain 12/07/2021 Pneumonia 12/07/2021 Polyp of colon 12/07/2021 Recurrent major depression in remission 12/08/19 22 Sciatica 12/07/2021 Serum creatinine abnormal 12/07/2021 Sprain of ankle 12/07/2021 Paronychia of toe of right foot 07/25/2021 Onychomycosis of toenails 07/17/2021 Chronic obstructive pulmonary disease 03/30/2019 Fibromyalgia 03/30/2019 Hyposmolality 03/30/2019 Raynaud's disease 03/30/2019 Ulnar neuropathy 03/30/2019 Hypertension 02/23/2019 Type 2 diabetes mellitus 02/23/2019 Dyspnea on exertion 02/23/2019 Mixed hyperlipidemia 02/23/2019 Degeneration of cervical intervertebral disc 12/2009 Chronic kidney disease Ferrell's esophagus Anemia Arthritis Migraine Systemic sclerosis Chronic depression Immunizations Name Administration Dates Next Due DTP 07/18/2011 Fluzone High-Dose 12/08/2019 Influenza Split High Dose Preservative Free IM 0 12/08/2019,01/25/2019 Influenza, Injectable, Quadrivalent 12/30/2018 Influenza, Quadrivalent 12/09/2019 JORJE SARS-COV-2 VACCINATION 06/08/2020 Pneumococcal Conjugate 13-Valent 06/30/2018 Pneumococcal Polysaccharide 07/01/2019 Zoster Recombinant 03/18/2019,01/12/2019 Family History Medical History Relation Comments Asbestosis Father Leukemia Mother Relation Status Comments Father Mother Social History Tobacco Use Types Packs/Day Years Used Date Smoking Tobacco: Never Smokeless Tobacco: Never Alcohol Use Standard Drinks/Week Comments No 0 (1 standard drink = 0.6 oz pur e alcohol) AUDIT-C Answer Date Recorded Frequency of Alcohol Consumption Never 09/07/2018 Average Number of Drinks Not on file 019 Frequency of Binge Drinking Not on file 11/2018 Sex and Gender Information Value Date Recorded Sex Assigned at Not on file Gender Identity Not on file Sexual Orientation Not on file Last Filed Vital Signs Vital Sign Reading Time Taken Comments Blood Pressure 132/78 12/27/2021 3:32 PM CDT Pulse - - Temperature 35.9 ??C (96.6 ??F) 12/27/2021 3:32 PM CD T Respiratory Rate 18 12/27/2021 3:32 PM CDT Oxygen Saturation - - Inhaled Oxygen Concentration - - Weight 62.6 kg (138 lb) 12/27/2021 3:32 PM CDT Height 154.9 cm (5' 1 ) 12/27/2021 3:32 PM CDT Body Mass Index 26.07 12/27/2021 3:32 PM CDT Plan of Treatment Health Maintenance Due Date Last Done Comments Diabetic Foot Exam 02/12/1960 Ophthalmology Exam 02/12/1960 Influenza Vaccine (#1) 2023 Pneumococcal PPSV23/PCV13 65 + Years / High and Highest Risk Completed 07/01/2019, 06/30/2018 Care Teams Mid Level Net Developer Relationship Specialty Start Date End Date Karrie Tompkins MD [address] [place] [phone] PCP - General 09/07/18
--- OUTSIDE RECORDS SUMMARY | 2024-04-11 03:36 | XMS_ITS | Encounter Summary ---
Author Organization [facility] Address [address] [place] [address] Care Team Providers Care Detective Narcotics And Vice Name Role Phone Karrie Tompkins MD Primary Care Provider + Reason for Visit * Reason Comments New Patient DYSPNEA * Cardiology (Routine) - Closed Specialty Diagnoses / Procedures Referred By Contac t Referred To Contact Cardiology Diagnoses Dyspnea, unspecified type Karrie Tompkins MD Phone: tel: fax: [facility] [address] [place] [address] [place] [id number] Phone: tel: fax: Referral ID Status Reason Start Date Expiration Date V isits Requested Visits Authorized [id number] Closed Specialty Services Required 11/21/2018 06/01/2020 1 1 Encounter Details Date Type Department Care Team (Late Contact Info) Description 02/23/2019 9:30 AM BLANKET CUTTER HAND Office Visit [facility] [address] [place] [address] [place] [id number] Ori Murillo MD [address] [place] [id number] Dyspnea on exertion (Primary Dx); Dyspnea, unspecified type; Essential hypertension; Mixed hyperlipidemia; Type 2 diabetes mellitus with stage 3 chronic kidney disease, without long-term current use of insulin ([facility]) Social History Tobacco Use Types Packs/Day Years [...] on file Legal Sex Female 8:14 PM BLANKET CUTTER HAND Gender Identity Not on file Sexual Orientation Not on file documented as of this encounter Last Filed Vital Signs Vital Sign Reading Time Taken Comments Blood Pressure 120/60 02/23/2019 9:22 AM BLANKET CUTTER HAND Pulse 71 02/23/2019 9:22 AM BLANKET C[employer]TER HAND Temperature - - Respiratory Rate - - Oxygen Saturation 98% 02/23/2019 9:22 AM BLANKET CUTTER HAND Inhaled Oxygen Concentration - - Weight 72.1 kg (159 lb) 02/23/2019 9:22 AM BLANKET CUTTER HAND Height 154.9 cm (5' 1 ) 02/23/2019 9:22 AM BLANKET CUTTER HAND Body Mass Index 30.04 02/23/2019 9:22 AM BLANKET CUTTER HAND documented in this encounter Progress Notes * Ori Murillo MD - 02/23/2019 9:30 AM CST [facility] DATE OF VISIT: 02/23/2019 CHIEF COMPLAINT Chief Complaint Patient presents with ??? New Patient DYSPNEA HPI Kandace Cole is a 69 y.o. female [...] about couple years ago that was unremarkable. Complains of dyspnea on exertion for the last couple years specially walking half a mi or going up stairs. She did have chest pain, left-sided aggravated by moving the left shoulder and stress test in [place] to was negative. She admits to heartburn when she eats and relieved by antacids. This has not changed form many years. Denies lower limb edema, orthopnea, paroxysmal nocturnal dyspnea, dizziness, syncope. She reports that she was exposed to secondhand smoking all her life. Head brother at age 69 with massive myocardial infarction. MEDICAL HISTORY Past Medical History: Diagnosis Date ??? Ferrell's esophagus ??? COPD (chronic obstructive pulmonary disease) (CMS/HCC) ??? Depression ??? Heart murmur ??? Hyperlipidemia ??? Hypertension ??? Iron deficiency anemia ??? Raynaud's disease ??? Sleep apnea Past Surgical History: Procedure Laterality Date ??? APPENDECTOMY ??? CARPAL TUNNEL RELEASE Bilateral ??? CATARACT EXTRACTION ??? HYSTERECTOMY ??? LAMINECTOMY ??? ROTATOR CUFF REPAIR Left ??? TONSILLECTOMY Social History Tobacco Use ??? Smoking status: Former Smoker ??? Smokeless tobacco: Never Used Substance Use Topics ??? Alcohol use: Never Frequency: Never ??? Drug use: Never Family History Problem Relation Age of Onset ??? Heart attack Mother ??? Heart attack Brother MEDICATIONS HOME MEDICATIONS : ARIPiprazole (ABILIFY) 5 mg tablet buPROPion SR (WELLBUTRIN SR) 100 mg 12 hr tablet carvedilol (COREG) 6.25 mg tablet furosemide (LASIX) 40 mg tablet latanoprost (XALATAN) 0.005 % ophthalmic solution lisinopril (PRINIVIL,ZESTRIL) [address] (PROTONIX) 40 mg EC tablet pravastatin (PRAVACHOL) 40 mg tablet zolpidem (AMBIEN) 5 mg tablet ALLERGIES Allergies Allergen Reactions ??? Bethanechol Unknown ??? Cyclobenzaprine Unknown ??? Eggshell Membrane Unknown ??? Fluoxetine Unknown ??? Latex Unknown ??? Meperidine Unknown ??? Naproxen Unknown ??? Sulfa (Sulfonamide Antibiotics) Unknown ??? Travoprost Unknown REVIEW OF SYSTEMS Review of Systems Constitution: Negative for chills, fever and malaise/fatigue. HENT: Negative for congestion and sore throat. Eyes: Negative for blurred vision and double vision. Cardiovascular: Positive for chest pain and dyspnea on exertion. Negative for claudication, leg swelling, near-syncope, orthopnea, palpitations, paroxysmal nocturnal dyspnea and syncope. Respiratory: Negative for cough, hemoptysis, shortness of breath, snoring, sputum production and wheezing. Endocrine: Negative for cold intolerance and polyuria. Hematologic/Lymphatic: Negative for bleeding problem. Does not bruise/bleed easily. Skin: Negative for itching and rash. Musculoskeletal: Positive for joint pain and joint swelling. Negative for back pain. Gastrointestinal: Negative for abdominal pain, diarrhea, nausea and vomiting. Genitourinary: Negative for dysuria, frequency and hematuria. Neurological: Negative for focal weakness, headaches and light-headedness. Psychiatric/Behavioral: Negative for depression. The patient is not nervous/anxious. Allergic/Immunologic: Negative for environmental allergies and hives. PHYSICAL EXAM Vitals BP 120/60 (BP Location: Left arm, Patient Position: Sitting) Pulse 71 Ht 154.9 cm (5' 1 ) Wt 72.1 kg (159 lb) SpO2 98% BMI 30.04 kg/m?? Body mass index is 30.04 kg/m??. Physical Exam Constitutional: She is oriented to person, place, and time. She appears well- developed and well-nourished. HENT: Head: Normocephalic and atraumatic. Mouth/Throat: Oropharynx is clear and moist. Eyes: Conjunctivae and EOM are normal. Left eye exhibits no discharge. No scleral icterus. Neck: Normal range of motion. Neck supple. No thyromegaly present. Cardiovascular: Normal rate, regular rhythm and normal heart sounds. Exam reveals no gallop and no friction rub. No murmur heard. Pulmonary/Chest: Effort normal and breath sounds normal. No respiratory distress. She has no wheezes. She has no rales. She exhibits no tenderness. Abdominal: Soft. She exhibits no distension and no mass. There is no tenderness. Musculoskeletal: General: Deformity present. No tenderness or edema. Comments: Hand joints are swollen Neurological: She is alert and oriented to person, place, and time. No cranial nerve deficit. She exhibits normal muscle tone. Skin: Skin is warm. No rash noted. No erythema. Psychiatric: She has a normal mood and affect. Judgment normal. LABS AND OTHER DIAGNOSTIC TESTS No results found for: WBC, HGB, HCT, MCV, PLT Chemistry No results found for: SODIUM, POTASSIUM, CHLORIDE, CO2, BUNSER, CREATININE, GLUCOSE No results found for: CALCIUM, ALKPHOS, AST, ALT, BILITOT LIPID PANEL FEBRUARY 23, 2019. LDL 89, HDL 33 AND TRIGLYCERIDES 178 EKG 02/23/2019. Normal sinus rhythm Echo 10/30/2018. Done at [facility]. Ejection fraction 65%, abnormal diastolic function, ASSESSMENT Diagnoses and all orders for this visit: Dyspnea on exertion (Primary) Dyspnea, unspecified type - Ambulatory referral to Cardiology Essential hypertension Mixed hyperlipidemia Type 2 diabetes mellitus with stage 3 chronic kidney disease, without long-term current use of insulin ([facility]) PLAN/RECOMMENDATIONS -in regards for dyspnea on exertion, the echocardiogram shows normal systolic function and abnormaldiastolic function. She looks euvolemic on physical exam today. We will obtain the stress test results that were done in [place] 2 years ago. COPD can contribute to this issue as well. -in regards for hypertension, blood pressure is controlled. Continue current treatment.. -in regards to hyperlipidemia, it is controlled. Continue statin. -in regards to stage III CKD, follow up with Nephrology. -patient does have a history of iron deficiency anemia and her last hemoglobin was 10.5 in September 2018. -patient does have a history of Ferrell's esophagus and heartburn. I warned the patient if she feels any pain different than what she used to, she needs to come to the emergency room to further evaluate it. Follow up in the office in 6 weeks. Ori Murillo MD [employer] documented in this encounter Miscellaneous Notes * Addendum Note - Junie Oro MA - 02/23/2019 9:30 AM CSTAddended by: JUNIE ORO on: 02/23/2019 05:42 PM Modules accepted: Orders KET C[employer]TER HAND documented in this encounter Plan of Treatment Not on file documented as of this encounter Procedures Procedure Name Priority Date/Time Associated Diagnosis Comments POCT LIPID PANEL Routine 02/23/2019 5:40 PM BLANKET C[employer]TER HAND Mixed hyperlipidemia documented in this encounter Results * POCT lipid panel (02/23/2019 5:40 PM BLANKET CUTTER HAND) Cholesterol, POC 158 mg/dL HDL, POC 33 mg/dL Triglycerides, POC 178 mg/dL LDL Cholesterol POC 89 mg/dL Chol/HDL Ratio, POC 4.7 Non-HDL Cholesterol, POC 124 mg/dL Cholesterol Total, POC 158 mg/dL Blood specimen (specimen) 02/23/2019 5:40 PM BLANKET CUTTER HAND Ori Murillo MD POINT OF CARE TEST O RDERABLES Final Result documented in this encounter Visit Diagnoses Diagnosis Dyspnea on exertion- Primary Other dyspnea and respiratory abnormality Dyspnea, unspecified type Essential hypertension Unspecified essential hypertension Mixed hyperlipidemia Type 2 diabetes mellitus with stage 3 chronic kidney disease, without long-term current use of insulin ([facility]) documented in this encounter Historical Medications * This list may reflect changes made after this encounter. pravastatin (PRAVACHOL) 40 mg tablet Take 1 tablet (40 mg total) by mouth daily pantoprazole DR (PROTONIX) 40 mg EC tablet Take 1 tablet (40 mg total) by mouth daily carvedilol (COREG) 6.25 mg tablet Take 1 tablet (6.25 mg total) by mouth 2 (two) times a day LISINOPRIL ORAL Take 10 mg by mouth daily furosemide (LASIX) 20 mg tablet Take 1 tablet (20 mg total) by mouth every other day One pill every other day latanoprost (XALATAN) 0.005 % ophthalmic solution daily 01/01/2019 buPROPion SR (WELLBUTRIN SR) 100 mg 12 hr tablet Take 1 tablet (100 mg total) by mouth 2 (two) times a day zolpidem (AMBIEN) 5 mg tablet 1 tablet daily 0 12/15/2018 04/11/2020 ARIPiprazole (ABILIFY) 5 mg tablet Take 5 mg by mouth daily 0 02/12/2019 04/11/2020 added in this encounter Orders Outpatient Referral Count Last Ordered Date Fir st Ordered Date AMB REFERRAL TO CARDIOLOGY 1 02/23/2019 documented in this encounter Care Teams Detective Narcotics And Vice Relationship Specialty Start Date End Date Karrie Tompkins MD PCP - General Family Medicine 11/21/18 01/19/24 documented as of this encounter
--- OUTSIDE RECORDS SUMMARY | 2024-04-11 03:36 | XMS_ITS | Encounter Summary ---
Author Organization [facility] Address [address] [place] [id number] Phone Care Team Providers Care Electron Gun Assembler Name Role Phone Karrie Tompkins MD Primary Care Provider [phone] Encounter Details Date Type Department Care Team (Late st Contact Info) Description 08/12/2020 Telephone [facility] Nephrology and Hypertension [address] [facility], [address] [address] Aubrey Reyna MD [address] [facility], [address] [place] [address] Social History Tobacco Use Types Packs/Day Years [...] Miscellaneous Notes * Telephone Encounter - Radha Schulte - 09/02/2020 9:05 AM CDT Spoke to pt to let her know R * Telephone Encounter - Aubrey Reyna MD - 09/01/2020 3:39 PM CDT Done. * Telephone Encounter - Radha Franca - 08/12/2020 10:35 AM CDT Spoke w/ pt - wanted dr to know she had labs done this week - Has appt in Oct will need lab orders for that appt sent to [facility]. Thank you documented in this encounter Plan of Treatment Not on file documented as of this encounter Visit Diagnoses Not on filedocumented in this encounter Care Teams Electron Gun Assembler Relationship Specialty Start Date End Date Karrie Tompkins MD [address] [place] [address] [place] [id number] PCP - General 09/07/18 documented as of this encounter
--- OUTSIDE RECORDS SUMMARY | 2024-04-11 03:36 | XMS_ITS | Encounter Summary ---
Author Organization [facility] Address [address] [address] Phone Care Team Providers Care Coffee Grinder Name Role Phone Karrie Tompkins MD Primary Care Provider [phone] Encounter Details Date Type Department Care Team (Late st Contact Info) Description 04/26/2021 1:15 PM COMMERCIAL REAL ESTATE ASSOCIATE Office Visit [facility] Nephrology and Hypertension [address] [place] [address], [address] [place] [address] Aubrey Reyna MD [address] [facility], [address] [place] [address] Chronic kidney disease stage 3B (CMS-HCC); Diabetes mellitus with renal manifestations (CMS-HCC); Benign hypertension with chronic kidney disease; Vitamin D deficiency, not otherwise specified Social History Tobacco Use Types Packs/Day Years [...] Sign Reading Time Taken Comments Blood Pressure 128/64 04/26/2021 1:03 PM COMMERCIAL REAL ESTATE ASSOCIATE Pulse - - Temperature 35 ??C (95 ??F) 04/26/2021 1:03 PM COMMERCIAL REAL ESTATE ASSOCIATE Respiratory Rate 18 04/26/2021 1:03 PM COMMERCIAL REAL ESTATE ASSOCIATE Oxygen Saturation - - Inhaled Oxygen Concentration - - Weight 67.1 kg (148 lb) 04/26/2021 1:03 PM COMMERCIAL REAL ESTATE ASSOCIATE Height 154.9 cm (5' 1 ) 04/26/2021 1:03 PM COMMERCIAL REAL ESTATE ASSOCIATE Body Mass Index 27.96 04/26/2021 1:03 PM COMMERCIAL REAL ESTATE ASSOCIATE documented in this encounter Progress Notes * Aubrey Reyna MD - 04/26/2021 1:15 PM CST FOLLOW-UP OFFICE VISIT Patient: Kandace Cole Birthdate: 1950 PCP: Karrie Tompkins MD Visit Date: 04/26/2021 INTERIM HISTORY Kandace Cole here for follow-up regarding her chronic kidney disease. She seems to be doing to be fairly well since I last saw her. No apparent distress or concerns to mention at this time. No issues or other matters communicated on this clinic visit. Past medical history, social history and family history has not changed since previous visit. ALLERGIES Allergen Reactions ??? Cyclobenzaprine Unknown ??? Demerol Hcl [Meperidine] Unknown ??? Eggs Or Egg-Derived Products Unknown ??? Latex Unknown ??? Naprosyn [Naproxen] Unknown ??? Prozac [Fluoxetine] Unknown ??? Sulfa Antibiotics Unknown ??? Travatan [Travoprost] Unknown ??? Urecholine [Bethanechol] Unknown MEDICATIONS Current Outpatient Medications: ??? buPROPion SR (WELLBUTRIN SR) 100 MG 12 hr tablet, Take 100 mg by mouth 2 (two) times a day., Disp: , Rfl: ??? Bydureon BCise 2 MG/0.85ML auto-injector, , Disp: , Rfl: ??? carvedilol (COREG) 6.25 MG tablet, Take 6.25 mg by mouth 2 (two) times a day with meals., Disp:, Rfl: ??? Cholecalciferol (VITAMIN D3) 2000 units tablet, Take by mouth., Disp: , Rfl: ??? citalopram (CeleXA) 40 MG tablet, Take 40 mg by mouth 1 (one) time each day., Disp: , Rfl: ??? cyanocobalamin 500 MCG tablet, Take 500 mcg by mouth daily, Disp: , Rfl: ??? furosemide (LASIX) 20 MG tablet, , Disp: , Rfl: ??? glimepiride (AMARYL) 1 MG tablet, , Disp: , Rfl: ??? Lancets (OneTouch Delica Plus [id number]) [facility], , Disp: , Rfl: ??? latanoprost (XALATAN) 0.005 % ophthalmic solution, , Disp: , Rfl: ??? lisinopril (PRINIVIL,ZESTRIL) 20 MG tablet, Take 20 mg by mouth 1 (one) time each day., Disp: ,Rfl: ??? OneTouch Verio test strip, , Disp: , Rfl: ??? pantoprazole (PROTONIX) 40 MG EC tablet, Take 40 mg by mouth 1 (one) time each day before breakfast., Disp: , Rfl: ??? pravastatin (PRAVACHOL) 40 MG tablet, Take 40 mg by mouth 1 (one) time each day., Disp: , Rfl: ??? QUEtiapine XR (SEROquel XR) 200 MG 24 hr tablet, Take 200 mg by mouth every night, Disp: , Rfl: ??? Tradjenta 5 MG tablet, , Disp: , Rfl: ??? zolpidem (AMBIEN) 5 MG tablet, 1 tablet daily, Disp: , Rfl: REVIEW OF SYSTEMS Constitutional: No fever, weight loss or gain, no fatigue. No loss of appetite. Cardiovascular: No chest pain. No Orthopnea, PND. Respiratory: No cough, no sputum production, no SOB or VELASQUEZ. : No dysuria or gross hematuria. No frequency or urgency. No nocturia. Skin: No rash or itching. VITALS BP 128/64 (BP Location: Right arm, Patient Position: Sitting) Temp 95 ??F (35 ??C) Resp 18 Ht5' 1 (1.549 m) Wt 148 lb (67.1 kg) BMI 27.96 kg/m?? BSA 1.7 m?? PHYSICAL EXAM General: Comfortable and in no acute distress Cardiovascular: Normal S1, S2; no rub Respiratory: Clear bilaterally Abdominal: Soft, non-tender, non-distended; positive bowel sounds Extremities: No cyanosis, clubbing, or edema Skin: Warm and intact RECENT LABS/IMAGING Lab Results Component Value Date BUN 24 02/28/2021 CREATININE 1.55 (H) 02/28/2021 EGFRAA 39 (L) 02/28/2021 EGFR 33 (L) 02/28/2021 NA 136 02/28/2021 K 4.6 02/28/2021 CL 102 02/28/2021 CO2 26 02/28/2021 CA 9.4 02/28/2021 PHOSPHATE 4.0 02/28/2021 ALBUMIN 4.1 02/28/2021 GLUCOSE 146 (H) 02/28/2021 PROTCREATUR 252 (H) 02/28/2021 PROTCREATUR 0.252 (H) 02/28/2021 PTH 86 (H) 11/10/2020 VITD3 59 11/10/2020 HGBA1C 6.0 (H) 06/01/2019 Creatinine, Serum/Plasma Date Value Ref Range Status 11/10/2020 1.76 (H) 0.60 - 0.93 mg/dL Final 08/10/2020 1.80 (H) 0.60 - 0.93 mg/dL Final 05/24/2020 2.20 (H) 0.60 - 0.93 mg/dL Final 01/12/2020 1.53 (H) 0.50 - 0.99 mg/dL Final 07/31/2019 1.79 (H) 0.50 - 0.99 mg/dL Final 06/01/2019 1.86 (H) 0.50 - 0.99 mg/dL Final 09/24/2018 1.65 (H) 0.50 - 0.99 mg/dL Final ASSESSMENT 1. Chronic kidney disease stage 3B ([facility]) 2. Diabetes mellitus with renal manifestations ([facility]) 3. Benign hypertension with chronic kidney disease DISCUSSION/PLAN Kandace has chronic kidney disease due to her previous NSAID use coupled with her hypertension, diabetes, and age-related change. Her creatinine has been running ~ 1.5 - 2.0mg/dl for the last few years (causing her to fluctuate between CKD stage 3b and stage 4). ?? To help reduce the rate of kidney deterioration: Control BP: follow trend Control DM: follow A1c Control LDL cholesterol: on statin Control Intact PTH: noted and Vitamin D at goal Use LENNIE/ARB: on lisinopril Low protein diet: not an issue ?? Benefits of slowing renal deterioration reviewed with patient in laymen's terms. Lowering blood pressure, controlling diabetes, and controlling cholesterol reduce insults to the kidney. Low protein diet helps take excess workload off of the kidney. LENNIE/ARB help to decrease pressure in kidney and also decrease hormones that cause scar formation. Blood Pressure for this visit is 128/64. Follow up plan to address blood pressure is follow trend. Body mass index is 27.96 kg/m??. Follow up plan to address BMI is diet/exercise as tolerated. Continue current medications Repeat labs prior to next visit Nneka Reyna MD documented in this encounter Plan of Treatment Not on file documented as of this encounter Procedures Procedure Name Priority Date/Time Associated Diagnosis Comments TOTAL PROTEIN W/ CREATININE, URINE, RANDOM Routine 07/26/2021 8:06 AM CDT Chronic kidney disease stage 3B (CMS-HCC) Diabetes mellitus with renal manifestations (CMS-HCC) Benign hypertension with chronic kidney disease Vitamin D deficiency, not otherwise specified QUESTASSURED? ? 25-HYDROXY VITAMIN D (D2, D3) Routine 07/26/2021 8:06 AM CDT Chronic kidney disease stage 3B (CMS-HCC) Diabetes mellitus with renal manifestations (CMS-HCC) Benign hypertension with chronic kidney disease Vitamin D deficiency, not otherwise specified RENAL FUNCTION PANEL (RFP) Routine 07/26/2021 8:06 AM CDT Chronic kidney disease stage 3B (CMS-HCC) Diabetes mellitus with renal manifestations (CMS-HCC) Benign hypertension with chronic kidney disease Vitamin D deficiency, not otherwise specified PTH INTACT W/O CALCIUM, SERUM Routine 07/26/2021 8:06 AM CDT Chronic kidney disease stage 3B (CMS-HCC) Diabetes mellitus with renal manifestations (CMS-HCC) Benign hypertension with chronic kidney disease Vitamin D deficiency, not otherwise specified documented in this encounter Results * [facility]AssureD??? 25-Hydroxyvitamin D (D2, D3) (07/26/2021 8:06 AM CDT) 25-Hydroxyvitamin D2+25-Hydroxyvitamin D3, Serum/Plasma 58 30 - 100 ng/mL [facility] ([facility]) Comment: (Note) Vitamin D, 25-Hydroxy reports concentrations of two ??common forms, 25-OHD2 and 25-OHD3. 25-OHD3 indicates ??both endogenous production and supplementation. ??25-OHD2 is an indicator of exogenous sources such as ??diet or supplementation. ??Therapy is based on ??measurement of Total 25-OHD, with levels <20 ng/mL ??indicative of Vitamin D deficiency, while levels ??between 20 ng/mL and 30 ng/mL suggest insufficiency. ??Optimal levels are > or = 30 ng/mL. ??Vitamin D is fat-soluble and therefore inadvertent or ??intentional ingestion of excessively high amounts ??could be toxic. Studies in children and adults suggest ??blood levels would need to exceed 150 ng/mL before ??there is any concern. Vangie MF, Boris NC, ??Eduard SWAN, et al. Evaluation, treatment and ??prevention of vitamin D deficiency: an Endocrine ??Society clinical practice guideline. J Clin Endocrinol ??Metab. 2011;96(7):1911-30. ??For additional information, please refer to ??http://[employer]/faq/YCI819 Cholecalciferol (Vitamin D3), Serum/Plasma 58 ng/mL [facility] ([facility]) Comment:Reference range: Not established Calciferol (Vitamin D2), Serum/Plasma <4.0 ng/mL [facility] [place] ([facility]) Comment: (Note) Reference range: Not established This test was developed and its analytical performance characteristics have been determined by [employer]. It has not been cleared or approved by the US Food and Drug Administration. This assay has been validated pursuant to the CLIA regulation and is used for Clinical purposes. [facility] [employer] [id number] [address],[address] [facility] [address] Iban Hoffman MD See Note 1 Note 1 For additional information, please refer to http://[employer]/faq/YHC834 (This link is being provided for informational/ educational purposes only.) Blood (Blood, Venous) 07/26/2021 8:06 AM CDT 07/26/2021 8:06 AM CDT Narrative Resulting Agency Comment Performing Organization Information: ?Site ID: [id number] ?Name: [employer] ?Address: [address] [place] [address], [address] [place] [address] ?Director: Iban Hoffman MD Aubrey Reyna MD LAB BLOOD ORDERABLES [facility] [place] ([facility]) * (ABNORMAL) PTH Intact w/o Calcium, Serum (07/26/2021 8:06 AM CDT) PTH, Intact, Serum/Plasma 157(H) 16 - 77 pg/mL [facility] [place] [facility] [place] [facility] Comment: Interpretive Guide ?Intact PTH ? Calcium ? ------- Normal Parathyroid ?Normal ? Normal Hypoparathyroidism ?Low or Low Normal ?Low Hyperparathyroidism ?? Primary ?Normal or High ? High ?? Secondary ?High ? Normal or Low ?? Tertiary ? High ? High Non-Parathyroid ?? Hypercalcemia ?Low or Low Normal ?High Blood (Blood, Venous) 07/26/2021 8:06 AM CDT 07/26/2021 8:06 AM CDT Narrative Resulting Agency Comment Performing Organization Information: ?Site ID: BRANT ?Name: [employer] ?Address: [facility] [place] [address] ?Director: Hakeem Jenkins D.O., MPH Aubrey Reyna MD LAB BLOOD ORDERABLES Performing Organization Address [facility] Co de Phone Number [facility] [place] ([facility]) * (ABNORMAL) Total Protein w/ Creatinine, Urine, Random (07/26/2021 8:06 AM CDT) Creatinine, Urine 123 20 - 275 mg/dL [facility] [place] ([facility]) Protein/Creati nine, Urine 179(H) 21 - 161 mg/g creat [facility] [place] ([facility]) Protein/Creati nine, Urine 0.179(H) 0.021 - 0.161 mg/mg creat [facility] [place] ([facility]) Protein, Urine 22 5 - 24 mg/dL [facility] [place] ([facility]) 07/26/2021 8:06 AM CDT 07/26/2021 8:06 AM CDT Narrative Resulting Agency Comment Performing Organization Information: ?Site ID: BRANT ?Name: [employer] ?Address: [facility] [place] [address] ?Director: Hakeem Jenkins D.O., MPH Aubrey Reyna MD LAB URINE ORDERABLES Performing Organization Address [facility] Co de Phone Number [facility] [place] ([facility]) * (ABNORMAL) Renal Function Panel (RFP) (07/26/2021 8:06 AM CDT) Glucose, Serum/Plasma 128(H) 65 - 99 mg/dL [facility] [place] ([facility]) Comment: ? Fasting reference interval For someone without known diabetes, a glucose value >125 mg/dL indicates that they may have diabetes and this should be confirmed with a follow-up test. Urea nitrogen, Serum/Plasma (BUN) 19 7 - 25 mg/dL [facility] ([facility]) Creatinine, Serum/Plasma 1.73(H) 0.60 - 0.93 mg/dL [facility] [place] ([facility]) Comment: For patients >49 years of age, the reference limit for Creatinine is approximately 13% higher for people identified as -[place] African. eGFR, non 29(L) > OR = 60 mL/min/1. 73m2 [facility] [place] ([facility]) eGFR, 34(L) > OR = 60 mL/min/1. 73m2 [facility] [place] ([facility]) Urea nitrogen/Creatinin e, Serum/Plasma 11 6 - 22 (calc) [facility] [place] ([facility]) Sodium, Serum/Plasma 130(L) 135 - 146 mmol/L [facility] [place] ([facility]) Potassium, Serum/Plasma 4.8 3.5 - 5.3 mmol/L [facility] [place] ([facility]) Chloride, Serum/Plasma 96(L) 98 - 110 mmol/L [facility] [place] ([facility]) Carbon dioxide CO2), total, Serum/Plasma 26 20 - 32 mmol/L [facility] [place] ([facility]) Calcium, Serum/Plasma 8.7 8.6 - 10.4 mg/dL [facility] ([facility]) Phosphate, Serum/Plasma 4.5(H) 2.1 - 4.3 mg/dL [facility] [place] ([facility]) Albumin, Serum/Plasma 3.9 3.6 - 5.1 g/dL [facility] [place] ([facility]) Blood (Blood, Venous) 07/26/2021 8:06 AM CDT 07/26/2021 8:06 AM CDT Narrative Resulting Agency Comment Performing Organization Information: ?Site ID: BRANT ?Name: [employer] ?Address: [facility] [place] [address] ?Director: Hakeem Jenkins D.O., MPH Aubrey Reyna MD LAB BLOOD ORDERABLES [facility] ([facility]) documented in this encounter Visit Diagnoses Diagnosis Chronic kidney disease stage 3B (CMS-HCC) Diabetes mellitus with renal manifestations (CMS-HCC) Benign hypertension with chronic kidney disease Vitamin D deficiency, not otherwise specified documented in this encounter Care Teams Coffee Grinder Relationship Specialty Start Date End Date Karrie Tompkins MD [address] [place] [address] [place] [id number] PCP - General 09/07/18 documented as of this encounter
--- OUTSIDE RECORDS SUMMARY | 2024-04-11 03:36 | XMS_ITS | Encounter Summary ---
Author Organization [facility] Address [address] [facility] [address] [place] [address] Care Team Providers Care Mechanical Integrity Specialist Name Role Phone Karrie Tompkins MD Primary Care Provider + Encounter Details Date Type Department Care Team (Late st Contact Info) Description 04/20/[address] 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 Gender Identity Not on file Sexual Orientation Not on file documented as of this encounter Plan of Treatment Not on file documented as of this encounter Procedures Procedure Name Priority Date/Time Associated Diagnosis Comments CARDIOLOGY DOCUMENT SCAN Routine 04/20/2019 documented in this encounter Results * SCAN - CARDIOLOGY (04/20/2019) Anatomical Region Laterality Modality Other Historical Provider CV CARDIAC SERVICES DEREJE BREWER Final Result documented in this encounter Visit Diagnoses Not on filedocumented in this encounter Care Teams Mechanical Integrity Specialist Relationship Specialty Start Date End Date Karrie Tompkins MD PCP - General Family Medicine 11/21/18 01/19/24 documented as of this encounter
--- OUTSIDE RECORDS SUMMARY | 2024-04-11 03:36 | XMS_ITS | Encounter Summary ---
Author Organization [facility] Address [address], [place] [address] Phone Care Team Providers Care Laborer Wrecking And Salvaging Name Role Phone Karrie Tompkins MD Primary Care Provider [phone] Encounter Details Date Type Department Care Team (Late st Contact Info) Description 11/23/2020 1:45 PM CDT Office Visit [facility] Nephrology and Hypertension [address] [place] [address], [address] [place] [address] Aubrey Reyna MD [address] [facility] [place] [address] Chronic kidney disease stage 4 (CMS-HCC); Diabetes mellitus with renal manifestations (CMS-HCC); Benign hypertension with chronic kidney disease Social History Tobacco Use Types Packs/Day Years [...] Sign Reading Time Taken Comments Blood Pressure 128/78 11/23/2020 1:39 PM CDT Pulse - - Temperature 36.6 ??C (97.9 ??F) 11/23/2020 1:39 PM CD T Respiratory Rate 18 11/23/2020 1:39 PM CDT Oxygen Saturation - - Inhaled Oxygen Concentration - - Weight 69.4 kg (153 lb) 11/23/2020 1:39 PM CDT Height 154.9 cm (5' 1 ) 11/23/2020 1:39 PM CDT Body Mass Index 28.91 11/23/2020 1:39 PM CDT documented in this encounter Progress Notes * Aubrey Reyna MD - 11/23/2020 1:45 PM CDT FOLLOW-UP OFFICE VISIT Patient: Kandace Cole Birthdate: 1950 PCP: Karrie Tompkins MD Visit Date: 11/23/2020 INTERIM HISTORY Kandace Cole here for follow-up regarding her chronic kidney disease. Since last seen, she appears to be feeling relatively well. No apparent distress or concerns statedat this time. No issues or other matters to speak of on this clinic visit. Past medical history, [...] , Rfl: ??? Lancets (OneTouch Delica Plus [id number]) [facility], , Disp: , Rfl: ??? latanoprost (XALATAN) [...] Skin: No rash or itching. VITALS BP 128/78 (BP Location: Right arm, Patient Position: Sitting) Temp 97.9 ??F (36.6 ??C) Resp 18 Ht 5' 1 (1.549 m) Wt 153 lb (69.4 kg) BMI 28.91 kg/m?? BSA 1.73 m?? PHYSICAL EXAM General: Comfortable and in no acute distress Cardiovascular: Normal S1, S2; no rub Respiratory: Clear bilaterally Abdominal: Soft, non-tender, non-distended; positive bowel sounds Extremities: No cyanosis, clubbing, or edema Skin: Warm and intact RECENT LABS/IMAGING Lab Results Component Value Date BUN 39 (H) 11/10/2020 CREATININE 1.76 (H) 11/10/2020 EGFRAA 33 (L) 11/10/2020 EGFR 29 (L) 11/10/2020 NA 133 (L) 11/10/2020 K 5.3 11/10/2020 CL 100 11/10/2020 CO2 24 11/10/2020 CA 9.3 11/10/2020 PHOSPHATE 5.0 (H) 11/10/2020 ALBUMIN 3.9 11/10/2020 GLUCOSE 95 11/10/2020 PROTCREATUR NOTE 11/10/2020 PROTCREATUR NOTE 11/10/2020 PTH 86 (H) 11/10/2020 VITD3 59 11/10/2020 [...] Final ASSESSMENT 1. Chronic kidney disease stage 4 ([facility]) 2. Diabetes mellitus with renal manifestations ([facility]) 3. Benign hypertension with chronic kidney disease DISCUSSION/PLAN Kandace has chronic kidney disease due to her previous NSAID use coupled with her hypertension, diabetes, and age-related change. Her creatinine has been running ~ 1.5 - 2.0mg/dl for the last few years. ?? To help reduce the rate of [...] formation. Blood Pressure for this visit is 128/78. Follow up plan to address blood pressure is follow trend. Body mass index is 28.91 kg/m??. Follow up plan to address BMI is diet/exercise as tolerated. Continue current medications Repeat labs prior to next visit Nneka Reyna MD documented in this encounter Plan of Treatment Not on file documented as of this encounter Procedures Procedure Name Priority Date/Time Associated Diagnosis Comments TOTAL PROTEIN W/ CREATININE, URINE, RANDOM Routine 02/28/2021 8:14 AM NEUROSURGERY SPINE PHYSICIAN Chronic kidney disease stage 4 (CMS-HCC) Diabetes mellitus with renal manifestations (CMS-HCC) Benign hypertension with chronic kidney disease RENAL FUNCTION PANEL (RFP) Routine 02/28/2021 8:14 AM NEUROSURGERY SPINE PHYSICIAN Chronic kidney disease stage 4 (CMS-HCC) Diabetes mellitus with renal manifestations (CMS-HCC) Benign hypertension with chronic kidney disease documented in this encounter Results * (ABNORMAL) Total Protein w/ Creatinine, Urine, Random (02/28/2021 8:14 AM NEUROSURGERY SPINE PHYSICIAN) Creatinine, Urine 111 20 - 275 mg/dL [facility] Protein/Creati nine, Urine 252(H) 21 - 161 mg/g creat [facility]) Protein/Creati nine, Urine 0.252(H) 0.021 - 0.161 mg/mg creat [facility]) Protein, Urine 28(H) 5 - 24 mg/dL [facility]) 02/28/2021 8:14 AM NEUROSURGERY SPINE PHYSICIAN 02/28/2021 8:15 AM NEUROSURGERY SPINE PHYSICIAN Narrative [facility]) - 03/01/2021 12:03 PM NEUROSURGERY SPINE PHYSICIAN FASTING:NO FASTING: NO Resulting Agency Comment Performing Organization Information: ?Site ID: MT ?Name: [facility] ?Address: [address] [place] [address] ?Director: Hakeem Jenkins D.O., MPH Aubrey Reyna MD LAB URINE ORDERABLES [facility] [place] ([facility]) * (ABNORMAL) Renal Function Panel (RFP) (02/28/2021 8:14 AM NEUROSURGERY SPINE PHYSICIAN) Glucose, Serum/Plasma 146(H) 65 - 139 mg/dL [facility] [place] ([facility]) Comment: ? Non-fasting reference interval Urea nitrogen, Serum/Plasma (BUN) 24 7 - 25 mg/dL [facility] ([facility]) Creatinine, Serum/Plasma 1.55(H) 0.60 - 0.93 mg/dL [facility] [place] ([facility]) Comment: For patients >49 years of age, the reference limit for Creatinine is approximately 13% higher for people identified as -Moroccan. eGFR, non 33(L) > OR = 60 mL/min/1. 73m2 [facility] [place] ([facility]) eGFR, 39(L) > OR = 60 mL/min/1. 73m2 [facility] [place] ([facility]) Urea nitrogen/Creatinin e, Serum/Plasma 15 6 - 22 (calc) [facility] ([facility]) Sodium, Serum/Plasma 136 135 - 146 mmol/L [facility] [place] ([facility]) Potassium, Serum/Plasma 4.6 3.5 - 5.3 mmol/L [facility] [place] ([facility]) Chloride, Serum/Plasma 102 98 - 110 mmol/L [facility] [place] ([facility]) Carbon dioxide CO2), total, Serum/Plasma 26 20 - 32 mmol/L [facility] [place] ([facility]) Calcium, Serum/Plasma 9.4 8.6 - 10.4 mg/dL [facility]) Phosphate, Serum/Plasma 4.0 2.1 - 4.3 mg/dL [facility]) Albumin, Serum/Plasma 4.1 3.6 - 5.1 g/dL [facility]) Blood (Blood, Venous) 02/28/2021 8:14 AM NEUROSURGERY SPINE PHYSICIAN 02/28/2021 8:15 AM NEUROSURGERY SPINE PHYSICIAN Narrative [facility] ([facility]) - 03/01/2021 12:03 PM NEUROSURGERY SPINE PHYSICIAN FASTING:NO FASTING: NO Resulting Agency Comment Performing Organization Information: ?Site ID: MT ?Name: [employer] ?Address: [facility] [place] [address] ?Director: Hakeem Jenkins D.O., MPH Aubrey Reyna MD LAB BLOOD ORDERABLES [facility] ([facility]) documented in this encounter Visit Diagnoses Diagnosis Chronic kidney disease stage 4 (CMS-HCC) Diabetes mellitus with renal manifestations (CMS-HCC) Benign hypertension with chronic kidney disease documented in this encounter Care Teams Laborer Wrecking And Salvaging Relationship Specialty Start Date End Date Karrie Tompkins MD [address] [place] [address] PCP - General 09/07/18 documented as of this encounter
--- OUTSIDE RECORDS SUMMARY | 2024-04-11 03:36 | XMS_ITS | Encounter Summary ---
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
--- OUTSIDE RECORDS SUMMARY | 2024-04-11 03:36 | XMS_ITS | Encounter Summary ---
Author Organization [facility] Address [facility] [address] [address] Phone Care Team Providers Care Elementary Math Tutor Name Role Phone Karrie Tompkins MD Primary Care Provider Reason for Visit * Reason Comments Med Refill Encounter Details Date Type Department Care Team (Late st Contact Info) Description 02/12/2022 Refill [facility] Nephrology and Hypertension [address] [place] [address], [address] [place] [address] Aubrey Reyna MD [address] [facility], [address] [place] [address] Social History Tobacco Use Types Packs/Day Years [...] on filedocumented in this encounter Care Teams Elementary Math Tutor Relationship Specialty Start Date End Date Karrie Tompkins MD [address] [place] [address] [place] Arauz [phone] PCP - General 09/07/18 documented as of this encounter
--- OUTSIDE RECORDS SUMMARY | 2024-04-11 03:36 | XMS_ITS | Encounter Summary ---
Author Organization [facility] Address [address] [address] Phone Care Team Providers Care Benefits Officer Name Role Phone Karrie Tompkins MD Primary Care Provider Encounter Details Date Type Department Care Team (Latest Contact Info) Description 08/23/2021 1:15 PM CDT Office Visit [facility] Nephrology and Hypertension [address] [place] [address], [address] [place] [address] Aubrey Reyna MD [address] [facility], [address] [place] [address] Secondary hyperparathyroidism (CMS-HCC) (Primary Dx); Chronic kidney disease stage 4 (CMS-HCC); Diabetes [...] Sign Reading Time Taken Comments Blood Pressure 130/80 08/23/2021 1:20 PM CDT Pulse - - Temperature 36.9 ??C (98.5 ??F) 08/23/2021 1:20 PM CD T Respiratory Rate 18 08/23/2021 1:20 PM CDT Oxygen Saturation - - Inhaled Oxygen Concentration - - Weight 67.1 kg (148 lb) 08/23/2021 1:20 PM CDT Height 154.9 cm (5' 1 ) 08/23/2021 1:20 PM CDT Body Mass Index 27.96 08/23/2021 1:20 PM CDT documented in this encounter Progress Notes * Aubrey Reyna MD - 08/23/2021 1:15 PM CDT FOLLOW-UP OFFICE VISIT Patient: Kandace Cole Birthdate: 1950 PCP: Karrie Tompkins MD Visit Date: 08/23/2021 INTERIM HISTORY Kandace Cole here for follow-up [...] Take by mouth., Disp: , Rfl: ??? ciclopirox (PENLAC) 8 % solution, APPLY TOPICALLY TO THE AFFECTED AREA OF TOENAILS ONCE DAILY PREFERABLY AT BEDTIME OR 8 HOURS BEFORE WASHING, Disp: , Rfl: ??? Ciclopirox 0.77 % gel, APPLY TO THE AFFECTED AND SURROUNDING AREAS OF TOENAIL AND SKIN TWICE DAILY IN THE MORNING AND EVENING, Disp: , Rfl: ??? citalopram (CeleXA) 40 MG tablet, Take 40 mg by mouth 1 (one) time each day., Disp: , Rfl: ??? cyanocobalamin 500 MCG tablet, Take 500 mcg by mouth daily, Disp: , Rfl: ??? escitalopram (LEXAPRO) 20 MG tablet, Take 20 mg by mouth 1 (one) time each day, Disp: , Rfl: ??? furosemide (LASIX) 20 MG tablet, , Disp: , Rfl: ??? glimepiride (AMARYL) 1 MG tablet, , Disp: , Rfl: ??? Lancets (OneTouch Delica Plus [id number]) [facility], , Disp: , Rfl: ??? latanoprost (XALATAN) 0.005 % ophthalmic solution, , Disp: , Rfl: ??? lisinopril (PRINIVIL,ZESTRIL) 20 MG tablet, Take 20 mg by mouth 1 (one) time each day., Disp: ,Rfl: ??? meclizine (ANTIVERT) 25 MG tablet, , Disp: , Rfl: ??? OneTouch Verio test strip, , Disp: [...] Skin: No rash or itching. VITALS BP 130/80 (BP Location: Right arm, Patient Position: Sitting) Temp 98.5 ??F (36.9 ??C) Resp 18 Ht 5' 1 (1.549 m) Wt 148 lb (67.1 kg) BMI 27.96 kg/m?? BSA 1.7 m?? PHYSICAL EXAM General: Comfortable and in no acute distress Cardiovascular: Normal S1, S2; no rub Respiratory: Clear bilaterally Abdominal: Soft, non-tender, non-distended; positive bowel sounds Extremities: No cyanosis, clubbing, or edema Skin: Warm and intact RECENT LABS/IMAGING Lab Results Component Value Date BUN 19 07/26/2021 CREATININE 1.73 (H) 07/26/2021 EGFRAA 34 (L) 07/26/2021 EGFR 29 (L) 07/26/2021 NA 130 (L) 07/26/2021 K 4.8 07/26/2021 CL 96 (L) 07/26/2021 CO2 26 07/26/2021 CA 8.7 07/26/2021 PHOSPHATE 4.5 (H) 07/26/2021 ALBUMIN 3.9 07/26/2021 GLUCOSE 128 (H) 07/26/2021 PROTCREATUR 179 (H) 07/26/2021 PROTCREATUR 0.179 (H) 07/26/2021 PTH 157 (H) 07/26/2021 VITD3 58 07/26/2021 HGBA1C 6.0 (H) 06/01/2019 Creatinine, Serum/Plasma Date Value Ref Range Status 02/28/2021 1.55 (H) 0.60 - 0.93 mg/dL Final 11/10/2020 1.76 (H) 0.60 - 0.93 mg/dL Final 08/10/2020 1.80 (H) 0.60 - 0.93 mg/dL Final 05/24/2020 2.20 (H) 0.60 - 0.93 mg/dL Final 01/12/2020 1.53 (H) 0.50 - 0.99 mg/dL Final 07/31/2019 1.79 (H) 0.50 - 0.99 mg/dL Final 06/01/2019 1.86 (H) 0.50 - 0.99 mg/dL Final 09/24/2018 1.65 (H) 0.50 - 0.99 mg/dL Final ASSESSMENT 1. Chronic kidney disease stage 4 (CMS-HCC) 2. Diabetes mellitus with renal manifestations (CMS-HCC) 3. Benign hypertension with chronic kidney disease [...] LDL cholesterol: on statin Control Intact PTH: noted/elevated and Vitamin D at goal Use LENNIE/ARB: [...] formation. Blood Pressure for this visit is 130/80. Follow up plan to address blood pressure is follow trend. Body mass index is 27.96 kg/m??. Follow up plan to address BMI is diet/exercise as tolerated. Continue current medications Start calcitriol 0.25mcg on M/W/F Repeat labs prior to next visit Nneka Reyna MD documented in this encounter Plan of Treatment Not on file documented as of this encounter Procedures Procedure Name Priority Date/Time Associated Diagnosis Comments TOTAL PROTEIN W/ CREATININE, URINE, RANDOM Routine 12/05/2021 7:46 AM CDT Chronic kidney disease stage 4 (CMS-HCC) Diabetes mellitus with renal manifestations (CMS-HCC) Benign hypertension with chronic kidney disease Secondary hyperparathyroidism (CMS-HCC) RENAL FUNCTION PANEL (RFP) Routine 12/05/2021 7:46 AM CDT Chronic kidney disease stage 4 (CMS-HCC) Diabetes mellitus with renal manifestations (CMS-HCC) Benign hypertension with chronic kidney disease Secondary hyperparathyroidism (CMS-HCC) PTH INTACT W/O CALCIUM, SERUM Routine 12/05/2021 7:46 AM CDT Chronic kidney disease stage 4 ([facility]) Diabetes mellitus with renal manifestations ([facility]) Benign hypertension with chronic kidney disease Secondary hyperparathyroidism ([facility]) documented in this encounter Results * (ABNORMAL) PTH Intact w/o Calcium, Serum (12/05/2021 7:46 AM CDT) PTH, Intact, Serum/Plasma 92(H) 16 - 77 pg/mL [facility] ([facility]) Comment: Interpretive Guide ?Intact PTH ? Calcium ? ------- Normal Parathyroid ?Normal ? Normal Hypoparathyroidism ?Low or Low Normal ?Low Hyperparathyroidism ?? Primary ?Normal or High ? High ?? Secondary ?High ? Normal or Low ?? Tertiary ? High ? High Non-Parathyroid ?? Hypercalcemia ?Low or Low Normal ?High Blood (Blood, Venous) 12/05/2021 7:46 AM CDT 12/05/2021 7:47 AM CDT Narrative [facility] ([facility]) - 12/06/2021 12:25 PM CDT FASTING:YES FASTING: YES Resulting Agency Comment Performing Organization Information: ?Site ID: [place] ?Name: [email or web address] ?Address: [address] [address] ?Director: Hakeem Jenkins D.O., MPH Aubrey Reyna MD LAB BLOOD ORDERABLES Performing Organization Address [facility]/ZIP Co de Phone Number [facility] ([facility]) * Total Protein w/ Creatinine, Urine, Random (12/05/2021 7:46 AM CDT) Creatinine, Urine 98 20 - 275 mg/dL [facility] ([facility]) Protein/Creatin ine, Urine 163 24 - 184 mg/g creat [facility] ([facility]) Protein/Creatin ine, Urine 0.163 0.024 - 0.184 mg/mg creat [facility] ([facility]) Protein, Urine 16 5 - 24 mg/dL [facility] ([facility]) 12/05/2021 7:46 AM CDT 12/05/2021 7:47 AM CDT Narrative [facility] ([facility]) - 12/06/2021 12:25 PM CDT FASTING:YES FASTING: YES Resulting Agency Comment Performing Organization Information: ?Site ID: [place] ?Name: [facility] ?Address: [address] [place] [id number] ?Director: Hakeem Jenkins D.O., MPH Aubrey Reyna MD LAB URINE ORDERABLES Performing Organization Address [facility] Co de Phone Number [facility] ([facility]) * (ABNORMAL) Renal Function Panel (RFP) (12/05/2021 7:46 AM CDT) Glucose, Serum/Plasma 93 65 - 99 mg/dL [facility] ([facility]) Comment: ? Fasting reference interval Urea nitrogen, Serum/Plasma (BUN) 39(H) 7 - 25 mg/dL [facility] ([facility]) Creatinine, Serum/Plasma 1.97(H) 0.60 - 1.00 mg/dL [facility] ([facility]) Estimated Glomerular Filtration Rate (eGFR) 27(L) > OR = 60 mL/min/1.[address] [facility] ([facility]) Comment: The eGFR is based on the CKD-EPI 2020 equation. To calculate the new eGFR from a previous Creatinine or Cystatin C result, go to https://www.kidney.org/professionals/ kdoqi/gfr%5Fcalculator Urea nitrogen/Creati nine, Serum/Plasma 20 6 - 22 (calc) [facility] ([facility]) Sodium, Serum/Plasma 131(L) 135 - 146 mmol/L [facility]) Potassium, Serum/Plasma 4.7 3.5 - 5.3 mmol/L [facility]) Chloride, Serum/Plasma 97(L) 98 - 110 mmol/L [facility] ([facility]) Carbon dioxide CO2), total, Serum/Plasma 24 20 - 32 mmol/L [facility] ([facility]) Calcium, Serum/Plasma 9.3 8.6 - 10.4 mg/dL [facility]) Phosphate, Serum/Plasma 4.1 2.1 - 4.3 mg/dL [facility] ([facility]) Albumin, Serum/Plasma 4.1 3.6 - 5.1 g/dL [facility]) Blood (Blood, Venous) 12/05/2021 7:46 AM CDT 12/05/2021 7:47 AM CDT Narrative [facility] ([facility]) - 12/06/2021 12:25 PM CDT FASTING:YES FASTING: YES Resulting Agency Comment Performing Organization Information: ?Site ID: [place] ?Name: [email or web address] ?Address: [address] [place], [place] [address] [id number] ?Director: Hakeem Jenkins D.O., MPH Aubrey Reyna MD LAB BLOOD ORDERABLES [facility]) documented in this encounter Visit Diagnoses Diagnosis Secondary hyperparathyroidism (CMS-HCC)- Primary Chronic kidney disease stage 4 (CMS-HCC) Diabetes mellitus with renal manifestations (CMS-HCC) Benign hypertension with chronic kidney disease documented in this encounter Care Teams Benefits Officer Relationship Specialty Start Date End Date Karrie Tompkins MD [address] [place] [address] [place] [phone] PCP - General 09/07/18 documented as of this encounter
--- OUTSIDE RECORDS SUMMARY | 2024-04-11 03:36 | XMS_ITS | Encounter Summary ---
Author Organization [facility] Address [address] [address] Phone Care Team Providers Care Production Recorder Name Role Phone Karrie Tompkins MD Primary Care Provider [phone] Encounter Details Date Type Department Care Team (Late st Contact Info) Description 06/22/2020 2:00 PM CDT Office Visit [facility] Nephrology and Hypertension [address] [place] [address], [address] [place] [address] Aubrey Reyna MD [address] [facility], [address] [place] [address] Chronic kidney disease stage 4 (CMS-HCC); Diabetes [...] Sign Reading Time Taken Comments Blood Pressure 128/68 06/22/2020 2:04 PM CDT Pulse - - Temperature 37.2 ??C (98.9 ??F) 06/22/2020 2:04 PM CD T Respiratory Rate 18 06/22/2020 2:04 PM CDT Oxygen Saturation - - Inhaled Oxygen Concentration - - Weight 71.7 kg (158 lb) 06/22/2020 2:04 PM CDT Height 154.9 cm (5' 1 ) 06/22/2020 2:04 PM CDT Body Mass Index 29.85 06/22/2020 2:04 PM CDT documented in this encounter Progress Notes * Aubrey Reyna MD - 06/22/2020 2:00 PM CDT FOLLOW-UP OFFICE VISIT Patient: Kandace Cole Birthdate: 1950 PCP: Karrie Tompkins MD Visit Date: 06/22/2020 INTERIM HISTORY Kandace Cole here for follow-up regarding her chronic kidney disease. She seems to be doing reasonably well since last seen. No apparent distress or concerns expressed at this time. No issues or other matters conveyed on this clinic visit. Past medical history, [...] time each day., Disp: , Rfl: ??? furosemide (LASIX) 20 MG tablet, , Disp: , Rfl: ??? glimepiride (AMARYL) 1 MG tablet, , Disp: , Rfl: ??? latanoprost (XALATAN) 0.005 % ophthalmic solution, , Disp: , Rfl: ??? lisinopril (PRINIVIL,ZESTRIL) 20 MG tablet, Take 20 mg by mouth 1 (one) time each day., Disp: ,Rfl: ??? pantoprazole (PROTONIX) 40 MG EC tablet, [...] Skin: No rash or itching. VITALS BP 128/68 (BP Location: Right arm, Patient Position: Sitting) Temp 98.9 ??F (37.2 ??C) Resp 18 Ht 5' 1 (1.549 m) Wt 158 lb (71.7 kg) BMI 29.85 kg/m?? BSA 1.76 m?? PHYSICAL EXAM General: Comfortable and in no acute distress Cardiovascular: Normal S1, S2; no rub Respiratory: Clear bilaterally Abdominal: Soft, non-tender, non-distended; positive bowel sounds Extremities: No cyanosis, clubbing, or edema Skin: Warm and intact RECENT LABS/IMAGING Lab Results Component Value Date BUN 39 (H) 05/24/2020 CREATININE 2.20 (H) 05/24/2020 EGFRAA 25 (L) 05/24/2020 EGFR 22 (L) 05/24/2020 NA 133 (L) 05/24/2020 K 5.3 05/24/2020 CL 102 05/24/2020 CO2 21 05/24/2020 CA 9.1 05/24/2020 PHOSPHATE 4.1 05/24/2020 ALBUMIN 3.9 05/24/2020 GLUCOSE 115 (H) 05/24/2020 PROTCREATUR 84 05/24/2020 PROTCREATUR 0.084 05/24/2020 PTH 95 (H) 01/12/2020 VITD 69 01/12/2020 HGBA1C 6.0 (H) 06/01/2019 Creatinine, Serum/Plasma Date Value Ref Range Status 01/12/2020 1.53 (H) 0.50 - 0.99 mg/dL Final 07/31/2019 1.79 (H) 0.50 - 0.99 mg/dL Final 06/01/2019 1.86 (H) 0.50 - 0.99 mg/dL Final 09/24/2018 1.65 (H) 0.50 - 0.99 mg/dL Final ASSESSMENT AND PLAN 1. Chronic kidney disease stage 4 ([facility]) 2. Diabetes mellitus with renal manifestations ([facility]) 3. Benign hypertension with chronic kidney disease PLAN Kandace has chronic kidney disease due to her previous NSAID use coupled with her hypertension, diabetes, and age-related change. Her creatinine has been running ~ 1.3 - 1.7mg/dl -- creatinine a little higher on this current visit; due disease progression versus random fluctuations in her baseline CKD? To help reduce the rate of kidney [...] formation. Blood Pressure for this visit is 128/68. Follow up plan to address blood pressure is follow trend. Body mass index is 29.85 kg/m??. Follow up plan to address BMI is diet/exercise. Continue current medications Repeat labs prior to next visit and in 2 months Nneka Reyna MD documented in this encounter Plan of Treatment Not on file documented as of this encounter Procedures Procedure Name Priority Date/Time Associated Diagnosis Comments RENAL FUNCTION PANEL (RFP) Routine 08/10/2020 10:27 AM CDT Chronic kidney disease stage 4 (CMS-HCC) documented in this encounter Results * (ABNORMAL) Renal Function Panel (RFP) (08/10/2020 10:27 AM CDT) Glucose, Serum/Plasma 148(H) 65 - 139 mg/dL [facility] ([facility]) Comment: ? Non-fasting reference interval Urea nitrogen, Serum/Plasma (BUN) 29(H) 7 - 25 mg/dL [facility] ([facility]) Creatinine, Serum/Plasma 1.80(H) 0.60 - 0.93 mg/dL [facility] ([facility]) Comment: For patients >49 years of age, the reference limit for Creatinine is approximately 13% higher for people identified as -Bahamian. eGFR, non 28(L) > OR = 60 mL/min/1. 73m2 [facility] ([facility]) eGFR, 32(L) > OR = 60 mL/min/1. [address] [facility]) Urea nitrogen/Creatinin e, Serum/Plasma 16 6 - 22 (calc) [facility]) Sodium, Serum/Plasma 136 135 - 146 mmol/L [facility]) Potassium, Serum/Plasma 5.1 3.5 - 5.3 mmol/L [facility]) Chloride, Serum/Plasma 102 98 - 110 mmol/L [facility]) Carbon dioxide CO2), total, Serum/Plasma 26 20 - 32 mmol/L [facility]) Calcium, Serum/Plasma 9.2 8.6 - 10.4 mg/dL [facility]) Phosphate, Serum/Plasma 4.4(H) 2.1 - 4.3 mg/dL [facility]) Albumin, Serum/Plasma 3.9 3.6 - 5.1 g/dL [facility]) Blood (Blood, Venous) 08/10/2020 10:27 AM CDT 08/10/2020 10:28 AM CDT Narrative [facility]) - 08/11/2020 2:52 AM CDT FASTING:NO FASTING: NO Resulting Agency Comment Performing Organization Information: ?Site ID: [place] ?Name: [facility] ?Address: [address] [place] [address] ?Director: Hakeem Jenkins D.O., MPH Aubrey Reyna MD LAB BLOOD ORDERABLES [facility] documented in this encounter Visit Diagnoses Diagnosis Chronic kidney disease stage 4 (CMS-HCC) Diabetes mellitus with renal manifestations (CMS-HCC) Benign hypertension with chronic kidney disease documented in this encounter Care Teams Production Recorder Relationship Specialty Start Date End Date Karrie Tompkins MD [address] [place] [phone] PCP - General 09/07/18 documented as of this encounter
--- OUTSIDE RECORDS SUMMARY | 2024-04-11 03:36 | XMS_ITS | Patient Health Record ---
Author Organization [facility] Address [address] [place] [address] Care Team Providers Care Manager Laboratory Name Role Phone Reji Hermosillo Primary Care Provider Brien Fonseca Unavailable [phone] Umesh Hess Unavailable Unavailable Allergies Allergen (clinical drug ingredient) Drug/Non Drug Allergy documented on EMR Reaction Allergy Type Onset Date Status meperidine Demerol (uncoded) Unknown Allergy A ctive Flexeril (uncoded) Unknown Allergy A ctive Latex & Eggs (uncoded) Unknown Allergy Active naproxen Naprosyn (uncoded) Unknown Allergy A ctive Substance with sulfonamide structure and antibacterial mechanism of action (substance) Sulfa (uncoded) Unknown Allergy Active Reason For Referral No Information Medications Medication SIG (Take, Route, Frequency, Duration) Notes Start Date End Date Status Latanoprost 0.005 % Ophthalmic for 90 Active Lasix 20 MG 1 tablet Orally Once a day Active Lisinopril 20 MG 1 tablet Orally Once a day Active Pantoprazole Sodium 40 MG 1 tablet Orally Once a day Active Pravachol 40 MG 1 tablet Orally Once a day Active PreserVision AREDS - 1 Tablet Orally Fou r times a day Active Acetaminophen 500 MG 2 tablets as needed Orally every 6 hrs Active buPROPion HCl 100 MG 1 tablet Orally Once a day Active CeleXA 40 MG 1 tablet Orally Once a day Active Carvedilol 12.5 MG 1 Tablet Orally Twic e a day Active Social History Tobacco Use: Social History Observation Description Date Details (start date - stop date) Never Smoker NA - NA Smoking Question Answer Notes Are you a: nonsmoker Problems Problem Type SNOMED Code ICD Code Onset Dates Problem Status W/U Status Risk Notes Problem 301296894 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) Active confirmed Problem 113113745 Fibromyalgia (M79.7) Active confirmed Problem 17834009 Essential hypertension (I10) Active confirmed Problem 805857443 Mixed hyperlipidemia (E78.2) Active confirmed Problem 54745647 Recurrent major depressive disorder, in partial remission (F33.41) Active confirmed Problem 029158285 MCTD (mixed connective tissue disease) (M35.1) Active confirmed Problem 725215333 Diabetes 1.5, 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 Plan Of Treatment No Information Insurance Providers Payer Name Payer Address Payer Phone Subscriber Number Group Number Insured Name Patient Relationship to Insured Coverage Start Date Coverage End Date [employer] MCR [employer] [address] [address] [place] [address] [phone] [id number] [facility]ace [facility] Self - patient is the insured 7 Medical (General) History Medical History History ICD Code Ferrell's esophagus CAD Connective tissue disease COPD Mild depression Diabetes Fibromyalgia Hyperlipidemia Hypertension NSAID [employer] supervisor 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
--- OUTSIDE RECORDS SUMMARY | 2024-04-11 03:36 | XMS_ITS | Encounter Summary ---
Author Organization [facility] Address [address] [place] [address] Phone Care Team Providers Care Sports Photographer Name Role Phone Karrie Tompkins MD Primary Care Provider [phone] Encounter Details Date Type Department Care Team (Late st Contact Info) Description 09/01/2020 Orders Only [facility] Nephrology and Hypertension [facility], [address] [address] Aubrey Reyna MD [address] [facility], SUITE [facility] [place] [address] Chronic kidney disease stage 4 (CMS-HCC) (Primary Dx); Diabetes mellitus with renal manifestations (CMS-HCC); Benign [...] TOTAL PROTEIN W/ CREATININE, URINE, RANDOM Routine 11/10/2020 7:32 AM CDT Chronic kidney disease stage 4 (CMS-HCC) Diabetes mellitus with renal manifestations (CMS-HCC) Benign hypertension with chronic kidney disease VITAMIN D, 25-HYDROXY, SERUM Routine 11/10/2020 7:32 AM CDT Chronic kidney disease stage 4 (CMS-HCC) Diabetes mellitus with renal manifestations (CMS-HCC) Benign hypertension with chronic kidney disease RENAL FUNCTION PANEL (RFP) Routine 11/10/2020 7:32 AM CDT Chronic kidney disease stage 4 (CMS-HCC) Diabetes mellitus with renal manifestations (CMS-HCC) Benign hypertension with chronic kidney disease PTH INTACT W/O CALCIUM, SERUM Routine 11/10/2020 7:32 AM CDT Chronic kidney disease stage 4 (CMS-HCC) Diabetes mellitus with renal manifestations (CMS-HCC) Benign hypertension with chronic kidney disease documented in this encounter Results * (ABNORMAL) Total Protein w/ Creatinine, Urine, Random (11/10/2020 7:32 AM CDT) Creatinine, Urine 31 20 - 275 mg/dL [facility] ([facility]) Protein/Creatin ine, Urine NOTE 21 - 161 mg/g creat [facility] ([facility]) Comment: THE PROTEIN VALUE IS LESS THAN 4 MG/DL THEREFORE WE ARE UNABLE TO CALCULATE EXCRETION AND/OR CREATININE RATIO. ?? Protein/Creatin ine, Urine NOTE 0.021 - 0.161 mg/mg creat [facility] ([facility]) Protein, Urine <4(L) 5 - 24 mg/dL [facility] ([facility]) Comment: Verified by repeat analysis. 11/10/2020 7:32 AM CDT 11/10/2020 7:32 AM CDT Narrative [facility] ([facility]) - 11/14/2020 1:05 PM CDT FASTING:YES FASTING: YES Resulting Agency Comment Performing Organization Information: ?Site ID: [place] ?Name: [facility] ?Address: [address] [address] ?Director: Hakeem Jenkins D.O., MPH Aubrey Reyna MD LAB URINE ORDERABLES [facility] ([facility]) * Vitamin D, 25-Hydroxy, Serum (11/10/2020 7:32 AM CDT) Calcidiol, Serum/Plasma 59 30 - 100 ng/mL [facility] ([facility]) Comment: Vitamin D Status ? 25-OH Vitamin D: Deficiency: ?<20 ng/mL Insufficiency: ? 20 - 29 ng/mL Optimal: ? > or = 30 ng/mL For 25-OH Vitamin D testing on patients on D2-supplementation and patients for whom quantitation of D2 and D3 fractions is required, the QuestAssureD(TM) 25-OH VIT D, (D2,D3), LC/MS/MS is recommended: order code 16444 (patients >2yrs). See Note 1 Note 1 For additional information, please refer to http://education.[employer]/faq/YAX666 (This link is being provided for informational/ educational purposes only.) 11/10/2020 7:32 AM CDT 11/10/2020 7:32 AM CDT Narrative [facility] ([facility]) - 11/14/2020 1:05 PM CDT FASTING:YES FASTING: YES Resulting Agency Comment Performing Organization Information: ?Site ID: [place] ?Name: [facility] ?Address: [address] [address] ?Director: Hakeem Jenkins D.O., MPH Aubrey Reyna MD LAB BLOOD ORDERABLES [facility] ([facility]) * (ABNORMAL) PTH Intact w/o Calcium, Serum (11/10/2020 7:32 AM CDT) [facility] PTH, Intact, Serum/Plasma 86(H) 14 - 64 pg/mL [facility] ([facility]) Comment: Interpretive Guide ?Intact PTH ? Calcium ? ------- Normal Parathyroid ?Normal ? Normal Hypoparathyroidism ?Low or Low Normal ?Low Hyperparathyroidism ?? Primary ?Normal or High ? High ?? Secondary ?High ? Normal or Low ?? Tertiary ? High ? High Non-Parathyroid ?? Hypercalcemia ?Low or Low Normal ?High Blood (Blood, Venous) 11/10/2020 7:32 AM CDT 11/10/2020 7:32 AM CDT Narrative [facility] ([facility]) - 11/14/2020 1:05 PM CDT FASTING:YES FASTING: YES Resulting Agency Comment Performing Organization Information: ?Site ID: [place] ?Name: [facility] ?Address: [address] [address] ?Director: Hakeem Jenkins D.O., MPH Aubrey Reyna MD LAB BLOOD ORDERABLES [facility] ([facility]) * (ABNORMAL) Renal Function Panel (RFP) (11/10/2020 7:32 AM CDT) [facility] Glucose, Serum/Plasma 95 65 - 99 mg/dL [facility]) Comment: ? Fasting reference interval Urea nitrogen, Serum/Plasma (BUN) 39(H) 7 - 25 mg/dL [facility]) Creatinine, Serum/Plasma 1.76(H) 0.60 - 0.93 mg/dL [facility] ([facility]) Comment: For patients >49 years of age, the reference limit for Creatinine is approximately 13% higher for people identified as -Ugandan. eGFR, non 29(L) > OR = 60 mL/min/1. 73m2 [facility] ([facility]) eGFR, 33(L) > OR = 60 mL/min/1. 73m2 [facility] ([facility]) Urea nitrogen/Creatinin e, Serum/Plasma 22 6 - 22 (calc) [facility]) Sodium, Serum/Plasma 133(L) 135 - 146 mmol/L [facility] ([facility]) Potassium, Serum/Plasma 5.3 3.5 - 5.3 mmol/L [facility] ([facility]) Chloride, Serum/Plasma 100 98 - 110 mmol/L [facility] ([facility]) Carbon dioxide CO2), total, Serum/Plasma 24 20 - 32 mmol/L [facility]) Calcium, Serum/Plasma 9.3 8.6 - 10.4 mg/dL [facility] ([facility]) Phosphate, Serum/Plasma 5.0(H) 2.1 - 4.3 mg/dL [facility] ([facility]) Albumin, Serum/Plasma 3.9 3.6 - 5.1 g/dL [facility] ([facility]) Blood (Blood, Venous) 11/10/2020 7:32 AM CDT 11/10/2020 7:32 AM CDT Narrative [facility] ([facility]) - 11/14/2020 1:05 PM CDT FASTING:YES FASTING: YES Resulting Agency Comment Performing Organization Information: ?Site ID: [place] ?Name: [facility] ?Address: [address] [address] ?Director: Hakeem Jenkins D.O., MPH Aubrey Reyna MD LAB BLOOD ORDERABLES [facility] ([facility]) documented in this encounter Visit Diagnoses Diagnosis Chronic kidney disease stage 4 (CMS-HCC)- Primary Diabetes mellitus with renal manifestations (CMS-HCC) Benign hypertension with chronic kidney disease documented in this encounter Care Teams Sports Photographer Relationship Specialty Start Date End Date Karrie Tompkins MD [address] [place] [address] [place] [id number] PCP - General 09/07/18 documented as of this encounter
--- OUTSIDE RECORDS SUMMARY | 2024-04-11 03:36 | XMS_ITS | Encounter Summary ---
Author Organization [facility] Address [facility] [address], [place] [address] Phone Care Team Providers Care Rn Field Name Role Phone Karrie Tompkins MD Primary Care Provider [phone] Reason for Visit * Reason Comments Med Refill Encounter Details Date Type Department Care Team (Late st Contact Info) Description 01/04/2022 Refill [facility] Nephrology and Hypertension [address] [place] [address], [address] [place] [address] Aubrey Reyna MD [address] [facility], [address] [place] [address] Social History Tobacco Use Types Packs/Day Years [...] on filedocumented in this encounter Care Teams Rn Field Relationship Specialty Start Date End Date Karrie Tompkins MD [address] [place] [address] [place] [phone] PCP - General 09/07/18 documented as of this encounter
--- OUTSIDE RECORDS SUMMARY | 2024-04-11 03:36 | XMS_ITS | Encounter Summary ---
Author Organization [facility] Address [address], [place] [address] Phone Care Team Providers Care Merit System Director Name Role Phone Karrie Tompkins MD Primary Care Provider [phone] Encounter Details Date Type Department Care Team (Latest Contact Info) Description 12/27/2021 3:00 PM CDT Office Visit [facility] Nephrology and Hypertension [address] [place] [address], [address] [place] [address] Aubrey Reyna MD [address] [facility], [address] [place] [address] Chronic kidney disease stage 4 (CMS-HCC); Diabetes mellitus with renal manifestations (CMS-HCC); Benign hypertension with chronic kidney disease; Secondary hyperparathyroidism (CMS-HCC); Vitamin D deficiency, not otherwise specified Social [...] Mass Index 26.07 12/27/2021 3:32 PM CDT documented in this encounter Progress Notes * Aubrey Reyna MD - 12/27/2021 3:00 PM CDT FOLLOW-UP OFFICE VISIT Patient: Kandace Cole Birthdate: 1950 PCP: Karrie Tompkins MD Visit Date: 12/27/2021 INTERIM HISTORY Kandace Cole here for follow-up regarding her chronic kidney disease. Since last seen, she appears to be doing reasonably well. No apparent distress or concerns voiced at this time. No issues or other matters to report on this clinic visit. Past medical history, social history andfamily history has not changed since previous visit. [...] MG/0.85ML auto-injector, , Disp: , Rfl: ??? calcitriol (ROCALTROL) 0.25 MCG capsule, Take 1 capsule (0.25 mcg total) by mouth 3 (three) times a week (on Mondays/Wednesdays/Fridays), Disp: 12 capsule, Rfl: 5 ??? carvedilol (COREG) 6.25 MG tablet, Take [...] , Rfl: ??? Lancets (OneTouch Delica Plus [id number]) [facility], , Disp: , Rfl: ??? latanoprost (XALATAN) [...] Skin: No rash or itching. VITALS BP 132/78 (BP Location: Right arm, Patient Position: Sitting) Temp 96.6 ??F (35.9 ??C) Resp 18 Ht 5' 1 (1.549 m) Wt 138 lb (62.6 kg) BMI 26.07 kg/m?? BSA 1.64 m?? PHYSICAL EXAM General: Comfortable and in no acute distress Cardiovascular: Normal S1, S2; no rub Respiratory: Clear bilaterally Abdominal: Soft, non-tender, non-distended; positive bowel sounds Extremities: No cyanosis, clubbing, or edema Skin: Warm and intact RECENT LABS/IMAGING Lab Results Component Value Date BUN 39 (H) 12/05/2021 CREATININE 1.97 (H) 12/05/2021 EGFRCR 27 (L) 12/05/2021 NA 131 (L) 12/05/2021 K 4.7 12/05/2021 CL 97 (L) 12/05/2021 CO2 24 12/05/2021 CA 9.3 12/05/2021 PHOSPHATE 4.1 12/05/2021 ALBUMIN 4.1 12/05/2021 GLUCOSE 93 12/05/2021 PROTCREATUR 163 12/05/2021 PROTCREATUR 0.163 12/05/2021 PTH 92 (H) 12/05/2021 VITD3 58 07/26/2021 HGBA1C 6.0 (H) 06/01/2019 Creatinine, Serum/Plasma Date Value Ref Range Status 07/26/2021 1.73 (H) 0.60 - 0.93 mg/dL Final 02/28/2021 1.55 (H) 0.60 - 0.93 mg/dL [...] ASSESSMENT 1. Chronic kidney disease stage 4 ([facility]) 2. Diabetes mellitus with renal manifestations ([facility]) 3. Benign hypertension with chronic kidney disease [...] LDL cholesterol: on statin Control Intact PTH: better with calcitriol Use LENNIE/ARB: on lisinopril Low protein diet: [...] formation. Blood Pressure for this visit is 132/78. Follow up plan to address blood pressure is follow trend. Body mass index is 26.07 kg/m??. Follow up plan to address BMI is no intervention as she is at goal. Continue current medications Repeat labs prior to next visit Nneka Reyna MD documented in this encounter Plan of Treatment Scheduled Orders Name Type Priority Associated Diagnoses Orde r Schedule Renal Function Panel (RFP) Lab Routine Chronic kidney disease stage 4 ([facility]) Diabetes mellitus with renal manifestations ([facility]) Benign hypertension with chronic kidney disease Secondary hyperparathyroidism ([facility]) Vitamin D deficiency, not otherwise specified Expected: 03/28/2022, Expires: 12/27/2022 Total Protein w/ Creatinine, Urine, Random Lab Routine Chronic kidney disease stage 4 (CMS-HCC) Diabetes mellitus with renal manifestations (CMS-HCC) Benign hypertension with chronic kidney disease Secondary hyperparathyroidism (CMS-HCC) Vitamin D deficiency, not otherwise specified Expected: 03/28/2022, Expires: 12/27/2022 PTH Intact w/o Calcium, Serum Lab Routine Chronic kidney disease stage 4 (CMS-HCC) Diabetes mellitus with renal manifestations (CMS-HCC) Benign hypertension with chronic kidney disease Secondary hyperparathyroidism (CMS-HCC) Vitamin D deficiency, not otherwise specified Expected: 03/28/2022, Expires: 12/27/2022 QuestAssureD? ? 25-Hydroxyvitamin D (D2, D3) Lab Routine Chronic kidney disease stage 4 (CMS-HCC) Diabetes mellitus with renal manifestations (CMS-HCC) Benign hypertension with chronic kidney disease Secondary hyperparathyroidism (CMS-HCC) Vitamin D deficiency, not otherwise specified Expected: 03/28/2022, Expires: 12/27/2022 documented as of this encounter Visit Diagnoses Diagnosis Chronic kidney disease stage 4 (CMS-HCC) Diabetes mellitus with renal manifestations (CMS-HCC) Benign hypertension with chronic kidney disease Secondary hyperparathyroidism (CMS-HCC) Vitamin D deficiency, not otherwise specified documented in this encounter Care Teams [employer] System Director Relationship Specialty Start Date End Date Karrie Tompkins MD [address] [place] [phone] PCP - General 09/07/18 documented as of this encounter
--- OUTSIDE RECORDS SUMMARY | 2024-04-11 03:36 | XMS_ITS | Encounter Summary ---
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 [employer] Gender Identity Not on file Sexual Orientation Not on file documented as of this encounter Miscellaneous Notes * Telephone Encounter - Junie Holliday MA - 04/06/2019 2:56 PM CST Stanislav Torres lm for medical records at [phone] also faxed for request at [phone] [facility], [facility]SE [facility]R[employer] documented in this encounter Plan of Treatment Not on file documented as of this encounter Visit Diagnoses Not on filedocumented in this encounter Care Teams Jackspooler Relationship Specialty Start Date End Date Karrie Tompkins MD PCP - General Family Medicine 11/21/18 01/19/24 documented as of this encounter
--- OUTSIDE RECORDS SUMMARY | 2024-04-11 03:37 | XMS_ITS | Encounter Summary ---
Author Organization [facility] Address [address] [place] [address] Phone Care Team Providers Care Roads And Parking Lots Sweeper Operator Name Role Phone Karrie Tompkins MD Primary Care Provider [phone] Encounter Details Date Type Department Care Team (Late st Contact Info) Description 10/12/2019 1:30 PM CDT Office Visit [facility] Nephrology and Hypertension [address] [place] [address], [address] [place] [address] Aubrey Reyna MD [address] [facility], [address] [place] [address] Chronic kidney disease stage 3 (CMS-HCC); Diabetes mellitus with renal manifestations (CMS-HCC); Hypertensive renal disease Social History Tobacco Use Types Packs/Day [...] Sign Reading Time Taken Comments Blood Pressure 134/70 10/12/2019 1:27 PM CDT Pulse - - Temperature 36.8 ??C (98.3 ??F) 10/12/2019 1:27 PM CD T Respiratory Rate 18 10/12/2019 1:27 PM CDT Oxygen Saturation - - Inhaled Oxygen Concentration - - Weight 74.8 kg (165 lb) 10/12/2019 1:27 PM CDT Height 154.9 cm (5' 1 ) 10/12/2019 1:27 PM CDT Body Mass Index 31.18 10/12/2019 1:27 PM CDT documented in this encounter Progress Notes * Aubrey Reyna MD - 10/12/2019 1:30 PM CDT FOLLOW-UP OFFICE VISIT Patient: Kandace Cole Birthdate: 1950 PCP: Karrie Tompkins MD Visit Date: 10/12/2019 INTERIM HISTORY Kandace Cole here for follow-up regarding her chronic kidney disease. She seems to be feeling relatively well since I last saw her. No apparent distress or concerns expressed at this time. No issues or problems conveyed on this clinic visit. Past medical [...] times a day., Disp: , Rfl: ??? carvedilol (COREG) 6.25 [...] mouth every night, Disp: , Rfl: ??? zolpidem (AMBIEN) 5 [...] Skin: No rash or itching. VITALS BP 134/70 (BP Location: Right arm, Patient Position: Sitting) Temp 98.3 ??F (36.8 ??C) Resp 18 Ht 5' 1 (1.549 m) Wt 165 lb (74.8 kg) BMI 31.18 kg/m?? BSA 1.79 m?? PHYSICAL EXAM General: Comfortable and in no acute distress Cardiovascular: Normal S1, S2; no rub Respiratory: Clear bilaterally Abdominal: Soft, non-tender, non-distended; positive bowel sounds Extremities: No cyanosis, clubbing, or edema Skin: Warm and intact RECENT LABS/IMAGING Lab Results Component Value Date BUN 38 (H) 07/31/2019 CREATININE 1.79 (H) 07/31/2019 EGFRAA 33 (L) 07/31/2019 EGFR 28 (L) 07/31/2019 NA 138 07/31/2019 K 4.7 07/31/2019 CL 103 07/31/2019 CO2 26 07/31/2019 CA 9.8 07/31/2019 PHOSPHATE 4.3 07/31/2019 ALBUMIN 4.0 07/31/2019 GLUCOSE 149 (H) 07/31/2019 PROTCREATUR NOTE 10/05/2019 PROTCREATUR NOTE 10/05/2019 PTH 90 (H) 06/01/2019 VITD3 27 (L) 09/24/2018 HGBA1C 6.0 (H) 06/01/2019 Creatinine, Serum/Plasma Date Value Ref Range Status 07/31/2019 1.79 (H) 0.50 - 0.99 mg/dL Final 06/01/2019 1.86 (H) 0.50 - 0.99 mg/dL Final 09/24/2018 1.65 (H) 0.50 - 0.99 mg/dL Final ASSESSMENT AND PLAN 1. Chronic kidney disease stage 3 ([facility]) 2. Diabetes mellitus with renal manifestations ([facility]) 3. Hypertensive renal disease Kandace has chronic kidney disease due to her previous NSAID use coupled with her hypertension, diabetes, and age-related change. Her creatinine has been running ~ 1.3 - 1.7mg/dl -- creatinine a littlehigher on last couple of blood tests; disease progression versus random fluctuations in kidney function? ?? To help reduce the rate of kidney deterioration: Control BP: follow trend Control DM: follow A1c Control LDL cholesterol: on statin Control Intact PTH: noted but Vitamin D slightly low Use LENNIE/ARB: on lisinopril Low protein diet: [...] formation. Blood Pressure for this visit is 134/70. Follow up plan to address blood pressure is follow trend. Body mass index is 31.18 kg/m??. Follow up plan to address BMI is diet/exercise. Continue current medications Repeat labs prior to next visit Nneka Reyna MD documented in this encounter Plan of Treatment Not on file documented as of this encounter Procedures Procedure Name Priority Date/Time Associated Diagnosis Comments TOTAL PROTEIN W/ CREATININE, URINE, RANDOM Routine 01/12/2020 7:40 AM CDT Chronic kidney disease stage 3 Diabetes mellitus with renal manifestations ([facility]) Hypertensive renal disease [facility]? ? 25-HYDROXY VITAMIN D (D2, D3) Routine 01/12/2020 7:40 AM CDT Chronic kidney disease stage 3 Diabetes mellitus with renal manifestations (CMS-HCC) Hypertensive renal disease RENAL FUNCTION PANEL (RFP) Routine 01/12/2020 7:40 AM CDT Chronic kidney disease stage 3 Diabetes mellitus with renal manifestations (CMS-HCC) Hypertensive renal disease PTH INTACT W/O CALCIUM, SERUM Routine 01/12/2020 7:40 AM CDT Chronic kidney disease stage 3 Diabetes mellitus with renal manifestations (CMS-HCC) Hypertensive renal disease documented in this encounter Results * [facility]??? 25-Hydroxyvitamin D (D2, D3) (01/12/2020 7:40 AM CDT) [facility] 25-Hydroxyvitamin D2+25-Hydroxyvitamin D3, Serum/Plasma 69 30 - 100 ng/mL [facility] ([facility]) Comment: (Note) Vitamin D, 25-Hydroxy reports concentrations [...] 2011;96(7):1911-30. ??For additional information, please refer to ??http://education.AiMeiWei/faq/DWE940 Cholecalciferol (Vitamin D3), Serum/Plasma 69 ng/mL [facility] ([facility]) Comment:Reference range: Not established Calciferol (Vitamin D2), Serum/Plasma <4 ng/mL [facility] ([facility]) Comment: (Note) Reference range: Not established This test was developed and its analytical performance characteristics have been determined by [facility]. It has not been cleared or approved by the US Food and Drug Administration. This assay has been validated pursuant to the CLIA regulation and is used for Clinical purposes. [facility] [address] [place] [address],[address] [place] [address] Davis Sosa MD See Note 1 Note 1 For additional information, please refer to http://Easel Learn.AiMeiWei/faq/NBH975 (This link is being provided for informational/ educational purposes only.) Blood (Blood, Venous) 01/12/2020 7:40 AM CDT 01/12/2020 7:41 AM CDT Narrative [facility] ([facility]) - 01/14/2020 1:20 PM CDT FASTING:YES FASTING: YES Resulting Agency Comment Performing Organization Information: ?Site ID: [id number] ?Name: [facility] ?Address: [address] [place] [address], [address] [place] [id number] ?Director: Iban Hoffman Aubrey Reyna MD LAB BLOOD ORDERABLES [facility] ([facility]) * (ABNORMAL) PTH Intact w/o Calcium, Serum (01/12/2020 7:40 AM CDT) PTH, Intact, Serum/Plasma 95(H) 14 - 64 pg/mL [facility] ([facility]) Comment: Interpretive Guide ?Intact PTH ? Calcium ? ------- Normal Parathyroid ?Normal ? Normal Hypoparathyroidism ?Low or Low Normal ?Low Hyperparathyroidism ?? Primary ?Normal or High ? High ?? Secondary ?High ? Normal or Low ?? Tertiary ? High ? High Non-Parathyroid ?? Hypercalcemia ?Low or Low Normal ?High Blood (Blood, Venous) 01/12/2020 7:40 AM CDT 01/12/2020 7:41 AM CDT Narrative [facility] ([facility]) - 01/14/2020 1:20 PM CDT FASTING:YES FASTING: YES Resulting Agency Comment Performing Organization Information: ?Site ID: [place] ?Name: [facility] ?Address: [address] [place] [address] ?Director: Hakeem Jenkins D.O., MPH Aubrey Reyna MD LAB BLOOD ORDERABLES [facility] ([facility]) * Total Protein w/ Creatinine, Urine, Random (01/12/2020 7:40 AM CDT) Creatinine, Urine 85 20 - 275 mg/dL [facility] ([facility]) Protein/Creatin ine, Urine 141 21 - 161 mg/g creat [facility] ([facility]) Protein/Creatin ine, Urine 0.141 0.021 - 0.161 mg/mg creat [facility] ([facility]) Protein, Urine 12 5 - 24 mg/dL [facility] ([facility]) 01/12/2020 7:40 AM CDT 01/12/2020 7:41 AM CDT Narrative [facility] ([facility]) - 01/14/2020 1:20 PM CDT FASTING:YES FASTING: YES Resulting Agency Comment Performing Organization Information: ?Site ID: [id number] ?Name: [facility] ?Address: [facility] [place] [phone] ?Director: Hakeem Jenkins D.O., MPH Aubrey Reyna MD LAB URINE ORDERABLES [facility] ([facility]) * (ABNORMAL) Renal Function Panel (RFP) (01/12/2020 7:40 AM CDT) Glucose, Serum/Plasma 182(H) 65 - 99 mg/dL [facility] ([facility]) Comment: ? Fasting reference interval For someone without known diabetes, a glucose value >125 mg/dL indicates that they may have diabetes and this should be confirmed with a follow-up test. Urea nitrogen, Serum/Plasma (BUN) 28(H) 7 - 25 mg/dL [facility] ([facility]) Creatinine, Serum/Plasma 1.53(H) 0.50 - 0.99 mg/dL [facility] ([facility]) Comment: For patients >49 years of age, the reference limit for Creatinine is approximately 13% higher for people identified as -[place]. eGFR, non 34(L) > OR = 60 mL/min/1. 73m2 [facility] ([facility]) eGFR, 40(L) > OR = 60 mL/min/1. 73m2 [facility] ([facility]) Urea nitrogen/Creatinin e, Serum/Plasma 18 6 - 22 (calc) [facility] ([facility]) Sodium, Serum/Plasma 141 135 - 146 mmol/L [facility] ([facility]) Potassium, Serum/Plasma 4.6 3.5 - 5.3 mmol/L [facility]) Chloride, Serum/Plasma 107 98 - 110 mmol/L [facility] ([facility]) Carbon dioxide CO2), total, Serum/Plasma 25 20 - 32 mmol/L [facility] ([facility]) Calcium, Serum/Plasma 9.2 8.6 - 10.4 mg/dL [facility] ([facility]) Phosphate, Serum/Plasma 3.4 2.1 - 4.3 mg/dL [facility] ([facility]) Albumin, Serum/Plasma 4.0 3.6 - 5.1 g/dL [facility]) Blood (Blood, Venous) 01/12/2020 7:40 AM CDT 01/12/2020 7:41 AM CDT Narrative [facility] ([facility]) - 01/14/2020 1:20 PM CDT FASTING:YES FASTING: YES Resulting Agency Comment Performing Organization Information: ?Site ID: [place] ?Name: [facility] ?Address: [facility] [place] [address] ?Director: Hakeem Jenkins D.O., MPH Aubrey Reyna MD LAB BLOOD ORDERABLES [facility]) documented in this encounter Visit Diagnoses Diagnosis Chronic kidney disease stage 3 (CMS-HCC) Diabetes mellitus with renal manifestations (CMS-HCC) Hypertensive renal disease documented in this encounter Care Teams Roads And Parking Lots Sweeper Operator Relationship Specialty Start Date End Date Karrie Tompkins MD [address] [place] [address] [place] [id number] PCP - General 09/07/18 documented as of this encounter
--- OUTSIDE RECORDS SUMMARY | 2024-04-11 03:37 | XMS_ITS | Encounter Summary ---
Author Organization [facility] Address [address] [place] [address] Phone Care Team Providers Care Outpatient Receptionist Name Role Phone Karrie Tompkins MD Primary Care Provider [phone] Encounter Details Date Type Department Care Team (Late st Contact Info) Description 02/22/2020 1:15 PM WHEAT CLEANER Office Visit [facility] Nephrology and Hypertension [address] [place] [address], [address] [place] [address] Aubrey Reyna MD [address] [facility], [address] [place] [address] Chronic kidney disease, stage 3b; Diabetes mellitus with renal manifestations ([facility]); Benign hypertension with chronic kidney disease Social [...] Sign Reading Time Taken Comments Blood Pressure 136/76 02/22/2020 1:22 PM WHEAT CLEANER Pulse - - Temperature 36.3 ??C (97.4 ??F) 02/22/2020 1:22 PM CS T Respiratory Rate 18 02/22/2020 1:22 PM WHEAT CLEANER Oxygen Saturation - - Inhaled Oxygen Concentration - - Weight 76.7 kg (169 lb) 02/22/2020 1:22 PM WHEAT CLEANER Height 154.9 cm (5' 1 ) 02/22/2020 1:22 PM WHEAT CLEANER Body Mass Index 31.93 02/22/2020 1:22 PM WHEAT CLEANER documented in this encounter Progress Notes * Aubrey Reyna MD - 02/22/2020 1:15 PM CST FOLLOW-UP OFFICE VISIT Patient: Kandace Cole Birthdate: 1950 PCP: Karrie Tompkins MD Visit Date: 02/22/2020 INTERIM HISTORY Kandace Cole here for follow-up regarding her chronic kidney disease. Sine last seen, she appears to be doing fairly well. No apparent distress or concerns to report at this time. No issues or other matters voiced on this clinic visit. Past medical history, [...] Skin: No rash or itching. VITALS BP 136/76 (BP Location: Right arm, Patient Position: Sitting) Temp 97.4 ??F (36.3 ??C) Resp 18 Ht 5' 1 (1.549 m) Wt 169 lb (76.7 kg) BMI 31.93 kg/m?? BSA 1.82 m?? PHYSICAL EXAM General: Comfortable and in no acute distress Cardiovascular: Normal S1, S2; no rub Respiratory: Clear bilaterally Abdominal: Soft, non-tender, non-distended; positive bowel sounds Extremities: No cyanosis, clubbing, or edema Skin: Warm and intact RECENT LABS/IMAGING Lab Results Component Value Date BUN 28 (H) 01/12/2020 CREATININE 1.53 (H) 01/12/2020 EGFRAA 40 (L) 01/12/2020 EGFR 34 (L) 01/12/2020 NA 141 01/12/2020 K 4.6 01/12/2020 CL 107 01/12/2020 CO2 25 01/12/2020 CA 9.2 01/12/2020 PHOSPHATE 3.4 01/12/2020 ALBUMIN 4.0 01/12/2020 GLUCOSE 182 (H) 01/12/2020 PROTCREATUR 141 01/12/2020 PROTCREATUR 0.141 01/12/2020 PTH 95 (H) 01/12/2020 VITD 69 01/12/2020 VITD3 69 01/12/2020 HGBA1C 6.0 (H) 06/01/2019 Creatinine, Serum/Plasma Date Value Ref Range Status 01/12/2020 1.53 (H) 0.50 - 0.99 mg/dL Final 07/31/2019 1.79 (H) 0.50 - 0.99 mg/dL Final 06/01/2019 1.86 (H) 0.50 - 0.99 mg/dL Final 09/24/2018 1.65 (H) 0.50 - 0.99 mg/dL Final ASSESSMENT AND PLAN 1. Chronic kidney disease, stage 3b 2. Diabetes mellitus with renal manifestations ([facility]) 3. Benign hypertension with chronic kidney disease Kandace has chronic kidney disease due to her previous NSAID use coupled with her hypertension, diabetes, and age-related change. Her creatinine has been running ~ 1.3 - 1.7mg/dl -- creatinine a little higher on last couple of blood tests but appears back to baseline by most recent testing. ?? To help reduce the rate of [...] formation. Blood Pressure for this visit is 136/76. Follow up plan to address blood pressure is follow trend. Body mass index is 31.93 kg/m??. Follow up plan to address BMI is diet/exercise. Continue current medications Repeat labs prior to next visit Nneka Reyna MD documented in this encounter Plan of Treatment Not on file documented as of this encounter Procedures Procedure Name Priority Date/Time Associated Diagnosis Comments TOTAL PROTEIN W/ CREATININE, URINE, RANDOM Routine 05/24/2020 8:54 AM WHEAT CLEANER Chronic kidney disease, stage 3b Diabetes mellitus with renal manifestations (CMS-HCC) Benign hypertension with chronic kidney disease RENAL FUNCTION PANEL (RFP) Routine 05/24/2020 8:54 AM WHEAT CLEANER Chronic kidney disease, stage 3b Diabetes mellitus with renal manifestations (CMS-HCC) Benign hypertension with chronic kidney disease documented in this encounter Results * Total Protein w/ Creatinine, Urine, Random (05/24/2020 8:54 AM WHEAT CLEANER) Creatinine, Urine 107 20 - 275 mg/dL [facility]) Protein/Creatin ine, Urine 84 21 - 161 mg/g creat [facility]) Protein/Creatin ine, Urine 0.084 0.021 - 0.161 mg/mg creat [facility]) Protein, Urine 9 5 - 24 mg/dL [facility]) 05/24/2020 8:54 AM WHEAT CLEANER 05/24/2020 8:55 AM WHEAT CLEANER Narrative Resulting Agency Comment Performing Organization Information: ?Site ID: [id number] ?Name: [facility] ?Address: [id number] [place] [address] [place] [address] ?Director: Hakeem Jenkins D.O., MPH Aubrey Reyna MD LAB URINE ORDERABLES [facility] * (ABNORMAL) Renal Function Panel (RFP) (05/24/2020 8:54 AM WHEAT CLEANER) Glucose, Serum/Plasma 115(H) 65 - 99 mg/dL [facility]) Comment: ? Fasting reference interval For someone without known diabetes, a glucose value between 100 and 125 mg/dL is consistent with prediabetes and should be confirmed with a follow-up test. Urea nitrogen, Serum/Plasma (BUN) 39(H) 7 - 25 mg/dL [facility] ([facility]) Creatinine, Serum/Plasma 2.20(H) 0.60 - 0.93 mg/dL [facility] ([facility]) Comment: For patients >49 years of age, the reference limit for Creatinine is approximately 13% higher for people identified as -[place]. eGFR, non 22(L) > OR = 60 mL/min/1. 73m2 [facility] ([facility]) eGFR, 25(L) > OR = 60 mL/min/1. 73m2 [facility]) Urea nitrogen/Creatinin e, Serum/Plasma 18 6 - 22 (calc) [facility]) Sodium, Serum/Plasma 133(L) 135 - 146 mmol/L [facility]) Potassium, Serum/Plasma 5.3 3.5 - 5.3 mmol/L [facility]) Chloride, Serum/Plasma 102 98 - 110 mmol/L [facility]) Carbon dioxide CO2), total, Serum/Plasma 21 20 - 32 mmol/L [facility]) Calcium, Serum/Plasma 9.1 8.6 - 10.4 mg/dL [facility]) Phosphate, Serum/Plasma 4.1 2.1 - 4.3 mg/dL [facility]) Albumin, Serum/Plasma 3.9 3.6 - 5.1 g/dL [facility] ([facility]) Blood (Blood, Venous) 05/24/2020 8:54 AM WHEAT CLEANER 05/24/2020 8:55 AM WHEAT CLEANER Narrative Resulting Agency Comment Performing Organization Information: ?Site ID: [id number] ?Name: [facility] ?Address: [address] [place] [address] ?Director: Hakeem Jenkins D.O., MPH Aubrey Reyna MD LAB BLOOD ORDERABLES [facility]) documented in this encounter Visit Diagnoses Diagnosis Chronic kidney disease, stage 3b Diabetes mellitus with renal manifestations (CMS-HCC) Benign hypertension with chronic kidney disease documented in this encounter Care Teams Outpatient Receptionist Relationship Specialty Start Date End Date Karrie Tompkins MD [address] [place] [address] [place] [address] PCP - General 09/07/18 documented as of this encounter
--- OUTSIDE RECORDS SUMMARY | 2024-04-11 03:37 | XMS_ITS | Encounter Summary ---
Author Organization [facility] Address [address], [place] [address] Phone Care Team Providers Care Search Engineer Name Role Phone Karrie Tompkins MD Primary Care Provider [phone] Encounter Details Date Type Department Care Team (Late st Contact Info) Description 06/10/2019 2:15 PM CDT Office Visit [facility] Nephrology and Hypertension [address] [place] [address], [address] [place] [address] Aubrey Reyna MD [address] [facility], [address] [place] [address] Chronic kidney disease stage 3 (CMS-HCC); Diabetes [...] Reading Time Taken Comments Blood Pressure 136/80 06/10/2019 2:14 PM CDT Pulse - - Temperature 36.6 ??C (97.9 ??F) 06/10/2019 2:14 PM CD T Respiratory Rate 18 06/10/2019 2:14 PM CDT Oxygen Saturation - - Inhaled Oxygen Concentration - - Weight 69.9 kg (154 lb) 06/10/2019 2:14 PM CDT Height 154.9 cm (5' 1 ) 06/10/2019 2:14 PM CDT Body Mass Index 29.1 06/10/2019 2:14 PM CDT documented in this encounter Progress Notes * Aubrey Reyna MD - 06/10/2019 2:15 PM CDT FOLLOW-UP OFFICE VISIT Patient: Kandace Cole Birthdate: 1950 PCP: Karrie Tompkins MD Visit Date: 06/10/2019 INTERIM HISTORY Kandace Cole here for follow-up [...] [Bethanechol] Unknown MEDICATIONS Current Outpatient Medications: ??? zolpidem (AMBIEN) 5 MG tablet, 1 tablet daily, Disp: , Rfl: ??? buPROPion SR (WELLBUTRIN SR) 100 MG [...] , Rfl: ??? QUEtiapine XR (SEROquel XR) 150 MG 24 hr tablet, Take 150 mg by mouth every night, Disp: , Rfl: REVIEW OF SYSTEMS Constitutional: No fever, weight loss or gain, no fatigue. No loss of appetite. Cardiovascular: No chest pain. No Orthopnea, PND. Respiratory: No cough, no sputum production, no SOB or VELASQUEZ. : No dysuria or gross hematuria. No frequency or urgency. No nocturia. Skin: No rash or itching. VITALS BP 136/80 (BP Location: Right arm, Patient Position: Sitting) Temp 97.9 ??F (36.6 ??C) Resp 18 Ht 5' 1 (1.549 m) Wt 154 lb (69.9 kg) BMI 29.10 kg/m?? BSA 1.73 m?? PHYSICAL EXAM General: Comfortable and in no acute distress Cardiovascular: Normal S1, S2; no rub Respiratory: Clear bilaterally Abdominal: Soft, non-tender, non-distended; positive bowel sounds Extremities: No cyanosis, clubbing, or edema Skin: Warm and intact RECENT LABS/IMAGING Lab Results Component Value Date BUN 36 (H) 06/01/2019 CREATININE 1.86 (H) 06/01/2019 EGFRAA 31 (L) 06/01/2019 EGFR 27 (L) 06/01/2019 NA 138 06/01/2019 K 4.9 06/01/2019 CL 101 06/01/2019 CO2 27 06/01/2019 CA 9.4 06/01/2019 PHOSPHATE 4.3 06/01/2019 ALBUMIN 4.1 06/01/2019 GLUCOSE 155 (H) 06/01/2019 PROTCREATUR 86 06/01/2019 PROTCREATUR 0.086 06/01/2019 PTH 90 (H) 06/01/2019 VITD3 27 (L) 09/24/2018 HGBA1C 6.0 (H) 06/01/2019 ASSESSMENT AND PLAN 1. Chronic kidney disease stage 3 (CMS-HCC) 2. Diabetes mellitus with renal manifestations (CMS-HCC) 3. Hypertensive renal disease Kandace has chronic kidney disease due to her previous NSAID use coupled with her hypertension, diabetes, and age-related change. Her creatinine has been running ~ 1.3 - 1.7mg/dl -- creatinine a littlehigher on this visit; disease progression versus random fluctuations in kidney [...] formation. Blood Pressure for this visit is 136/80. Follow up plan to address blood pressure is follow trend. Body mass index is 29.1 kg/m??. Follow up plan to address BMI is no intervention as she is at goal. Continue current medications Repeat labs prior to next visit and in 2 months S. Carloz Reyna MD documented in this encounter Plan of Treatment Scheduled Orders Name Type Priority Associated Diagnoses Orde r Schedule Renal Function Panel (RFP) Lab Routine Chronic kidney disease stage 3 (CMS-HCC) Diabetes mellitus with renal manifestations (CMS-HCC) Hypertensive renal disease Expected: 07/31/2019, Expires: 06/09/2020 documented as of this encounter Procedures Procedure Name Priority Date/Time Associated Diagnosis Comments TOTAL PROTEIN W/ CREATININE, URINE, RANDOM Routine 10/05/2019 12:52 PM CDT Chronic kidney disease stage 3 (CMS-HCC) Diabetes mellitus with renal manifestations (CMS-HCC) Hypertensive renal disease RENAL FUNCTION PANEL (RFP) Routine 07/31/2019 9:05 AM CDT Chronic kidney disease stage 3 (CMS-HCC) Diabetes mellitus with renal manifestations (CMS-HCC) Hypertensive renal disease documented in this encounter Results * (ABNORMAL) Total Protein w/ Creatinine, Urine, Random (10/05/2019 12:52 PM CDT) Creatinine, Urine 29 20 - 275 mg/dL [facility] ([facility]) Protein/Creatin ine, Urine NOTE 21 - 161 mg/g creat [facility] ([facility]) Comment: THE PROTEIN VALUE IS LESS THAN 4 MG/DL THEREFORE WE ARE UNABLE TO CALCULATE EXCRETION AND/OR CREATININE RATIO. ?? Protein/Creatin ine, Urine NOTE 0.021 - 0.161 mg/mg creat [facility] ([facility]) Protein, Urine <4(L) 5 - 24 mg/dL [facility] ([facility]) Comment: Verified by repeat analysis. 10/05/2019 12:5 2 PM CDT 10/05/2019 12:53 PM CDT Narrative [facility] ([facility]) - 10/06/2019 3:01 PM CDT SPLIT 07/31/2019 FROM [id number] FASTING:NO FASTING: NO Resulting Agency Comment Performing Organization Information: ?Site ID: [id number] ?Name: [facility] ?Address: [address] [place] [id number] ?Director: Hakeem Jenkins D.O., MPH Aubrey Reyna MD LAB URINE ORDERABLES [facility] (ST) * (ABNORMAL) Renal Function Panel (RFP) (07/31/2019 9:05 AM CDT) Glucose, Serum/Plasma 149(H) 65 - 99 mg/dL [facility] ([facility]) Comment: ? Fasting reference interval For someone without known diabetes, a glucose value >125 mg/dL indicates that they may have diabetes and this should be confirmed with a follow-up test. Urea nitrogen, Serum/Plasma (BUN) 38(H) 7 - 25 mg/dL [facility] ([facility]) Creatinine, Serum/Plasma 1.79(H) 0.50 - 0.99 mg/dL [facility] ([facility]) Comment: For patients >49 years of age, the reference limit for Creatinine is approximately 13% higher for people identified as -Burundian. eGFR, non 28(L) > OR = 60 mL/min/1. 73m2 [facility] ([facility]) eGFR, 33(L) > OR = 60 mL/min/1. [address]m2 [facility] (ST[facility]) Urea nitrogen/Creatinin e, Serum/Plasma 21 6 - 22 (calc) [facility] (ST[facility]) Sodium, Serum/Plasma 138 135 - 146 mmol/L [facility] ([facility]) Potassium, Serum/Plasma 4.7 3.5 - 5.3 mmol/L [facility] ([facility]) Chloride, Serum/Plasma 103 98 - 110 mmol/L [facility] ([facility]) Carbon dioxide CO2), total, Serum/Plasma 26 20 - 32 mmol/L [facility] ([facility]) Calcium, Serum/Plasma 9.8 8.6 - 10.4 mg/dL [facility] ([facility]) Phosphate, Serum/Plasma 4.3 2.1 - 4.3 mg/dL [facility] ([facility]) Albumin, Serum/Plasma 4.0 3.6 - 5.1 g/dL [facility] (ST) Blood (Blood, Venous) 07/31/2019 9:05 AM CDT 07/31/2019 9:06 AM CDT Narrative [facility] ([facility]) - 08/01/2019 2:15 AM CDT FASTING:YES COLLECTION REQUIREMENTS NOT MET. PATIENT ADVISED TO RETURN. FASTING: YES Resulting Agency Comment Performing Organization Information: ?Site ID: [id number] ?Name: [facility] ?Address: [address] [id number] ?Director: Hakeem Jenkins D.O., MPH Aubrey Reyna MD LAB BLOOD ORDERABLES [facility] ([facility]) documented in this encounter Visit Diagnoses Diagnosis Chronic kidney disease stage 3 (CMS-HCC) Diabetes mellitus with renal manifestations (CMS-HCC) Hypertensive renal disease documented in this encounter Care Teams Search Engineer Relationship Specialty Start Date End Date Karrie Tompkins MD [address] [place] [address] [place] [address] PCP - General 09/07/18 documented as of this encounter
--- OUTSIDE RECORDS SUMMARY | 2024-04-11 03:37 | XMS_ITS | Encounter Summary ---
Author Organization [facility] Address [address] [place] [address] Phone Care Team Providers Care Certifier Name Role Phone Karrie Tompkins MD Primary Care Provider [phone] Encounter Details Date Type Department Care Team (Late st Contact Info) Description 01/07/2019 10:30 AM CDT Office Visit [facility] Nephrology and Hypertension [address] [place] [address], [address] [place] [address] Aubrey Reyna MD [address] [facility], [address] [place] [address] Chronic kidney disease stage 3 (CMS-HCC); Diabetes [...] Sign Reading Time Taken Comments Blood Pressure 130/74 01/07/2019 10:39 AM CDT Pulse - - Temperature 36.3 ??C (97.4 ??F) 01/07/2019 10:39 AM C DT Respiratory Rate - - Oxygen Saturation - - Inhaled Oxygen Concentration - - Weight 71.7 kg (158 lb) 01/07/2019 10:39 AM CDT Height 154.9 cm (5' 1 ) 01/07/2019 10:39 AM CDT Body Mass Index 29.85 01/07/2019 10:39 AM CDT documented in this encounter Progress Notes * Aubrey Reyna MD - 01/07/2019 10:30 AM CDT FOLLOW-UP OFFICE VISIT Patient: Kandace Cole Birthdate: 1950 PCP: Karrie Tompkins MD Visit Date: 01/07/2019 INTERIM HISTORY Kandace Cole here for follow-up regarding her chronic kidney disease. She was seen about 3 months ago for initial evaluation of this issue. Since last seen, he/she appears to be doing reasonably well. No apparent distress or concerns voiced at this time. No issues or problems to report on this clinic visit. Past medical history, social history and family history has not changed since previous visit. ALLERGIES Allergen Reactions ??? Cyclobenzaprine ??? Demerol Hcl [Meperidine] ??? Eggs Or Egg-Derived Products ??? Latex ??? Naprosyn [Naproxen] ??? Prozac [Fluoxetine] ??? Sulfa Antibiotics ??? Travatan [Travoprost] ??? Urecholine [Bethanechol] MEDICATIONS Current Outpatient Medications: ??? buPROPion SR [...] day., Disp: , Rfl: ??? furosemide (LASIX) 40 MG tablet, Take 40 mg by mouth 2 (two) times a day., Disp: , Rfl: ??? lisinopril (PRINIVIL,ZESTRIL) 20 MG tablet, Take 20 mg by mouth 1 (one) time each day., Disp: ,Rfl: ??? pantoprazole (PROTONIX) 40 MG EC tablet, Take 40 mg by mouth 1 (one) time each day before breakfast., Disp: , Rfl: ??? pravastatin (PRAVACHOL) 40 MG tablet, Take 40 mg by mouth 1 (one) time each day., Disp: , Rfl: REVIEW OF SYSTEMS Constitutional: No fever, weight loss or gain, no fatigue. No loss of appetite. Cardiovascular: No chest pain. No Orthopnea, PND. Respiratory: No cough, no sputum production, no SOB or VELASQUEZ. : No dysuria or gross hematuria. No frequency or urgency. No nocturia. Skin: No rash or itching. VITALS BP 130/74 (BP Location: Right arm, Patient Position: Sitting) Temp 97.4 ??F (36.3 ??C) Ht 5' 1 (1.549 m) Wt 158 lb (71.7 kg) BMI 29.85 kg/m?? BSA 1.76 m?? PHYSICAL EXAM General: Comfortable and in no acute distress Cardiovascular: Normal S1, S2; no rub Respiratory: Clear bilaterally Abdominal: Soft, non-tender, non-distended; positive bowel sounds Extremities: No cyanosis, clubbing, or edema Skin: Warm and dry RECENT LABS/IMAGING Lab Results Component Value Date BUN 43 (H) 09/24/2018 CREATININE 1.65 (H) 09/24/2018 EGFRAA 37 (L) 09/24/2018 EGFR 32 (L) 09/24/2018 NA 135 09/24/2018 K 5.8 (H) 09/24/2018 CL 101 09/24/2018 CO2 27 09/24/2018 CA 9.7 09/24/2018 PHOSPHATE 4.8 (H) 09/24/2018 ALBUMIN 4.4 09/24/2018 GLUCOSE 144 (H) 09/24/2018 PROTCREATUR 64 09/24/2018 PTH 109 (H) 09/24/2018 [id number] 27 (L) 09/24/2018 ASSESSMENT AND PLAN 1. Chronic kidney disease stage 3 (CMS-HCC) 2. Diabetes mellitus with renal manifestations (CMS-HCC) 3. Hypertensive renal disease Kandace has chronic kidney disease due to her previous NSAID use coupled with her hypertension, diabetes, and age-related change. Her creatinine has been running ~ 1.32 - 1.7mg/dl. She had some labs dome by PCP in late November 2018 which demonstrated her creatinine at 1.26mg/dl(GFR ~ 42) demonstrate the random fluctuations her kidney function does. ?? To help reduce the rate of kidney deterioration: Control BP: follow trend Control DM: follow A1c Control LDL cholesterol: on statin Control Intact PTH: noted but Vitamin D slightly low Use LENNIE/ARB: on lisinopril Low protein diet: will reassess ?? Benefits of slowing renal deterioration reviewed with patient in laymen's terms. Lowering blood pressure, controlling diabetes, and controlling cholesterol reduce insults to the kidney. Low protein diet helps take excess workload off of the kidney. LENNIE/ARB help to decrease pressure in kidney and also decrease hormones that cause scar formation. Blood Pressure for this visit is 130/74. Follow up plan to address blood pressure is follow trend. Body mass index is 29.85 kg/m??. Follow up plan to address BMI is no intervention as she is at goal. Continue current medications Repeat labs prior to next visit Nneka Reyna MD documented in this encounter Plan of Treatment Scheduled Orders Name Type Priority Associated Diagnoses Orde r Schedule Vitamin D, 25-Hydroxy, Serum Lab Routine Chronic kidney disease stage 3 ([facility]-HCC) Diabetes mellitus with renal manifestations ([facility]) Hypertensive renal disease Expected: 04/09/2019, Expires: 01/08/2020 documented as of this encounter Procedures Procedure Name Priority Date/Time Associated Diagnosis Comments TOTAL PROTEIN W/ CREATININE, URINE, RANDOM Routine 06/01/2019 9:59 AM LEG ASSEMBLER Chronic kidney disease stage 3 ([facility]-HCC) Diabetes mellitus with renal manifestations ([facility]-HCC) Hypertensive renal disease RENAL FUNCTION PANEL (RFP) Routine 06/01/2019 9:59 AM LEG ASSEMBLER Chronic kidney disease stage 3 (CMS-HCC) Diabetes mellitus with renal manifestations (CMS-HCC) Hypertensive renal disease HEMOGLOBIN A1C Routine 06/01/2019 9:59 AM LEG ASSEMBLER Chronic kidney disease stage 3 (CMS-HCC) Diabetes mellitus with renal manifestations ([facility]-HCC) Hypertensive renal disease PTH INTACT W/O CALCIUM, SERUM Routine 06/01/2019 9:59 AM LEG ASSEMBLER Chronic kidney disease stage 3 ([facility]-HCC) Diabetes mellitus with renal manifestations ([facility]) Hypertensive renal disease documented in this encounter Results * (ABNORMAL) Hemoglobin A1c, Serum (06/01/2019 9:59 AM LEG ASSEMBLER) Hemoglobin A1c/Hemoglobin, total, Blood 6.0(H) <5.7 % of total Hgb [facility] ([facility]) Comment: For someone without known diabetes, a hemoglobin A1c value between 5.7% and 6.4% is consistent with prediabetes and should be confirmed with a follow-up test. For someone with known diabetes, a value <7% indicates that their diabetes is well controlled. A1c targets should be individualized based on duration of diabetes, age, comorbid conditions, and other considerations. This assay result is consistent with an increased risk of diabetes. Currently, no consensus exists regarding use of hemoglobin A1c for diagnosis of diabetes for children. Blood (Blood, Venous) 06/01/2019 9:59 AM LEG ASSEMBLER 06/01/2019 10:00 AM LEG ASSEMBLER Narrative [facility] ([facility]) - 06/02/2019 2:45 PM LEG ASSEMBLER FASTING:YES FASTING: YES Resulting Agency Comment Performing Organization Information: ?Site ID: [id number] ?Name: [facility] ?Address: [address] [place] [id number] ?Director: Hakeem Jenkins D.O., MPH Aubrey Reyna MD LAB BLOOD ORDERABLES [facility] ([facility]) * (ABNORMAL) PTH Intact w/o Calcium, Serum (06/01/2019 9:59 AM LEG ASSEMBLER) PTH, Intact, Serum/Plasma 90(H) 14 - 64 pg/mL [facility] ([facility]) Comment: Interpretive Guide ?Intact PTH ? Calcium ? ------- Normal Parathyroid ?Normal ? Normal Hypoparathyroidism ?Low or Low Normal ?Low Hyperparathyroidism ?? Primary ?Normal or High ? High ?? Secondary ?High ? Normal or Low ?? Tertiary ? High ? High Non-Parathyroid ?? Hypercalcemia ?Low or Low Normal ?High Blood (Blood, Venous) 06/01/2019 9:59 AM LEG ASSEMBLER 06/01/2019 10:00 AM LEG ASSEMBLER Narrative [facility] ([facility]) - 06/02/2019 2:45 PM LEG ASSEMBLER FASTING:YES FASTING: YES Resulting Agency Comment Performing Organization Information: ?Site ID: [id number] ?Name: [facility] ?Address: [address] [place] [id number] ?Director: Hakeem Jenkins D.O., MPH Aubrey Reyna MD LAB BLOOD ORDERABLES [facility] ([facility]) * Total Protein w/ Creatinine, Urine, Random (06/01/2019 9:59 AM LEG ASSEMBLER) Creatinine, Urine 81 20 - 275 mg/dL [facility] ([facility]) Protein/Creatin ine, Urine 86 21 - 161 mg/g creat [facility] ([facility]) Protein/Creatin ine, Urine 0.086 0.021 - 0.161 mg/mg creat [facility] ([facility]) Protein, Urine 7 5 - 24 mg/dL [facility] ([facility]) 06/01/2019 9:59 AM LEG ASSEMBLER 06/01/2019 10:00 AM LEG ASSEMBLER Narrative [facility] ([facility]) - 06/02/2019 2:45 PM LEG ASSEMBLER FASTING:YES FASTING: YES Resulting Agency Comment Performing Organization Information: ?Site ID: [id number] ?Name: [employer] ?Address: [address] [phone] ?Director: Hakeem Jenkins D.O., MPH Aubrey Reyna MD LAB URINE ORDERABLES [facility] (ST) * (ABNORMAL) Renal Function Panel (RFP) (06/01/2019 9:59 AM LEG ASSEMBLER) Glucose, Serum/Plasma 155(H) 65 - 99 mg/dL [facility] ([facility]) Comment: ? Fasting reference interval For someone without known diabetes, a glucose value >125 mg/dL indicates that they may have diabetes and this should be confirmed with a follow-up test. Urea nitrogen, Serum/Plasma (BUN) 36(H) 7 - 25 mg/dL [facility] ([facility]) Creatinine, Serum/Plasma 1.86(H) 0.50 - 0.99 mg/dL [facility] ([facility]) Comment: For patients >49 years of age, the reference limit for Creatinine is approximately 13% higher for people identified as -Ecuadorean. eGFR, non 27(L) > OR = 60 mL/min/1. 73m2 [facility] ([facility]) eGFR, 31(L) > OR = 60 mL/min/1. 73m2 [facility] ([facility]) Urea nitrogen/Creatinin e, Serum/Plasma 19 6 - 22 (calc) [facility] ([facility]) Sodium, Serum/Plasma 138 135 - 146 mmol/L [facility] ([facility]) Potassium, Serum/Plasma 4.9 3.5 - 5.3 mmol/L [facility] ([facility]) Chloride, Serum/Plasma 101 98 - 110 mmol/L [facility] ([facility]) Carbon dioxide CO2), total, Serum/Plasma 27 20 - 32 mmol/L [facility]) Calcium, Serum/Plasma 9.4 8.6 - 10.4 mg/dL [facility] ([facility]) Phosphate, Serum/Plasma 4.3 2.1 - 4.3 mg/dL [facility] ([facility]) Albumin, Serum/Plasma 4.1 3.6 - 5.1 g/dL [facility]) Blood (Blood, Venous) 06/01/2019 9:59 AM LEG ASSEMBLER 06/01/2019 10:00 AM LEG ASSEMBLER Narrative [facility] ([facility]) - 06/02/2019 2:45 PM LEG ASSEMBLER FASTING:YES FASTING: YES Resulting Agency Comment Performing Organization Information: ?Site ID: [id number] ?Name: [facility] ?Address: [facility] [place] [address] [address] ?Director: Hakeem Jenkins D.O., MPH Aubrey Reyna MD LAB BLOOD ORDERABLES [facility] ([facility]) documented in this encounter Visit Diagnoses Diagnosis Chronic kidney disease stage 3 (CMS-HCC) Diabetes mellitus with renal manifestations (CMS-HCC) Hypertensive renal disease documented in this encounter Care Teams Certifier Relationship Specialty Start Date End Date Karrie Tompkins MD [address] [place] [address] [place] [phone] PCP - General 09/07/18 documented as of this encounter
--- OUTSIDE RECORDS SUMMARY | 2024-04-11 03:37 | XMS_ITS | Encounter Summary ---
Author Organization [facility] Address [address] [place] [address] Phone Care Team Providers Care Passenger Brakeman Name Role Phone Karrie Tompkins MD Primary Care Provider [phone] Encounter Details Date Type Department Care Team (Late st Contact Info) Description 08/03/2019 Telephone [facility] Nephrology and Hypertension [address] [facility], [address] [place] [address] Aubrey Reyna MD [address] [facility], [address] [place] [address] Social History Tobacco Use Types Packs/Day Years [...] * Telephone Encounter - Radha Schulte - 08/03/2019 1:11 PM CDT Kandace wanted to inform you that she got her labs done at [facility] on Sunday 07/30. Thank you documented in this encounter Plan of Treatment Not on file documented as of this encounter Visit Diagnoses Not on filedocumented in this encounter Care Teams Passenger Brakeman Relationship Specialty Start Date End Date Karrie Tompkins MD [address] [place] [phone] PCP - General 09/07/18 documented as of this encounter
--- OUTSIDE RECORDS SUMMARY | 2024-04-11 03:37 | XMS_ITS | Encounter Summary ---
Author Organization [facility] Address [address] [place] [address] Phone Care Team Providers Care Basket Grader Name Role Phone Karrie Tompkins MD Primary Care Provider [phone] Encounter Details Date Type Department Care Team (Late st Contact Info) Description 09/08/2018 11:00 AM CDT Office Visit [facility] Nephrology and Hypertension [address] [place] [address], [address] [place] [address] Aubrey Reyna MD [address] [facility], [address] [place] [address] Chronic kidney disease stage 3 (CMS-HCC); Diabetes [...] Sign Reading Time Taken Comments Blood Pressure 132/68 09/08/2018 10:59 AM CDT Pulse - - Temperature 36.9 ??C (98.4 ??F) 09/08/2018 10:59 AM C DT Respiratory Rate - - Oxygen Saturation - - Inhaled Oxygen Concentration - - Weight 72.6 kg (160 lb) 09/08/2018 10:59 AM CDT Height 154.9 cm (5' 1 ) 09/08/2018 10:59 AM CDT Body Mass Index 30.23 09/08/2018 10:59 AM CDT documented in this encounter Progress Notes * Aubrey Reyna MD - 09/08/2018 11:00 AM CDT NEW PATIENT CONSULTATION Patient: Kandace Cole Birthdate: 1950 Referring Provider: Karrie Tompkins MD PCP: Karrie Tompkins MD Visit Date: 09/08/2018 CHIEF COMPLAINT Chronic kidney disease HISTORY OF PRESENT ILLNESS Kandace Cole is a 68 y.o. female with a past medical history as outlined below who presents for further evaluation of her known chronic kidney disease. The patient had been following with her supervisor ovens in [place], [place] up until she moved to this area. She was referred by her new primary care physician for ongoing management and treatment of her known chronic kidney disease. From review of the records provided by the patient, she has chronic kidney disease thought to be secondary to medication use (NSAIDs) as well as her history of hypertension, diabetes, and age relatedchange. She had a fairly extensive serological work-up done which resulted in the conclusion. She did have a positive LAURA but her dsDNA-Ab was negative Her CKD is further complicated by her hyponatremia that requires a significant fluid restriction tomaintain her serum sodium level which she diligently tries to follow to the best of her ability -- in fact, her only real complaint is the fluid restriction she is on. At this time, she reports no issues with hematuria, dysuria, nephrolithiasis, CVA/flank pain or trauma, foamy urine, frequent urinary tract infections, or urinary incontinence. She denies any other systemic issues/symptoms with regard to fevers, chills, blurry vision, headaches, abdominal pain, nausea, vomiting, diarrhea, chest pain, shortness of breath, palpitations, dizziness, or lightheadedness. Currently, on this clinic visit, she seems to be doing reasonably well. PAST MEDICAL HISTORY Diagnosis ??? Anemia ??? Arthritis ??? Ferrell's esophagus ??? Chronic depression ??? Chronic kidney disease ??? Diabetes mellitus ??? Hypertension ??? Migraine ??? COPD ??? Raynaud's disease ??? Hyponatremia ??? Hyperlipidemia ??? Fibromyalgia ??? Systemic sclerosis ALLERGIES Allergen Reactions ??? Cyclobenzaprine Unknown ??? Demerol Hcl [Meperidine] Unknown ??? Eggs Or Egg-Derived Products Unknown ??? Latex Unknown ??? Naprosyn [Naproxen] Unknown ??? Prozac [Fluoxetine] Unknown ??? Sulfa Antibiotics Unknown ??? Travatan [Travoprost] ??? Urecholine [Bethanechol] MEDICATIONS [...] (one) time each day., Disp: , Rfl: SOCIAL HISTORY Tobacco Use ??? Smoking status: Never Smoker ??? Smokeless tobacco: Never Used Substance Use Topics ??? Alcohol use: No Frequency: Never ??? Drug use: No FAMILY HISTORY Problem Relation ??? Leukemia Mother ??? Asbestosis Father REVIEW OF SYSTEMS Constitutional: No fever, weight loss or gain, no fatigue. No loss of appetite. Eyes: No sudden change in vision, eye pain, or light sensitivity ENMT: No ringing in ear, no nasal drainage. Cardiovascular: No chest pain. No Orthopnea, PND. Respiratory: No cough, no sputum production, no SOB or VELASQUEZ. GI: No abdominal pain. No tenderness or masses. : No dysuria or gross hematuria. No frequency or urgency. No nocturia. Musculoskeletal: No weakness, cramps, or muscle aches. No joint pain. Skin: No rash or itching. Neurologic: No weakness, tingling, or numbness in extremities. No seizures. Psychiatric: Not depressed, no suicidal ideation, generally satisfied with life. Endocrine: No excessive thirst or hunger. Not excessively hot or cold. Hematologic: No abnormal bruising or bleeding. Immunologic: No seasonal allergy/hay fever, no abnormal rashes, no excessive itching. VITALS BP 132/68 Temp 98.4 ??F (36.9 ??C) Ht 5' 1 (1.549 m) Wt 160 lb (72.6 kg) BMI 30.23 kg/m?? BSA 1.77 m?? PHYSICAL EXAM Head: Atraumatic, normocephalic Eyes: PERRLA, anicteric sclerae, moist conjuntivae ENMT: Moist mucous membranes, no oral lesions or exudates Neck: Supple, no tenderness or masses Cardiovascular: Normal S1, S2; no rub Respiratory: Clear bilaterally Abdominal: Soft, non-tender, non-distended; positive bowel sounds Skin: No rash, bruising, or excoriations Extremities: No cyanosis, clubbing, or edema Functional: Comfortable and in no acute distress Cognitive: Cranial nerves 2-12 intact, no focal musculoskeletal or sensory deficits noted Psychological: Appropriate affect, alert and oriented to person, place and time RECENT LABS/IMAGES 06/20/16 Cr 1.32, eGFR 42; 24hr urine: CrCl 32cc/min with <72mg proteinuria ASSESSMENT AND PLAN 1. Chronic kidney disease stage 3 2. Diabetes mellitus with renal manifestations 3. Hypertensive renal disease Kandace has chronic kidney disease due to her previous NSAID use coupled wit her hypertension, diabetes, and age-related change. As her previous supervisor ovens did an extensive work-up and evaluation of her kidney disease, I see no reason to repeat it. To help reduce the rate of kidney deterioration: Control BP: follow trend Control DM: follow A1c Control LDL cholesterol: on statin Control Intact PTH: will recheck Use LENNIE/ARB: on lisinopril Low protein diet: will reassess Benefits of slowing renal deterioration reviewed with patient in laymen's terms. Lowering blood pressure, controlling diabetes, and controlling cholesterol reduce insults to the kidney. Low protein diet helps take excess workload off of the kidney. LENNIE/ARB help to decrease pressure in kidney and also decrease hormones that cause scar formation. Will repeat labs soon and prior to next appointment to ensure relative stability in renal function. Blood Pressure for this visit is 132/68. Follow up plan to address blood pressure is continue current medications. Body mass index is 30.23 kg/m??. Follow up plan to address BMI is follow trend. Thank you for allowing me to participate in the care of your patient. Nneka Reyna MD documented in this encounter Plan of Treatment Scheduled Orders Name Type Priority Associated Diagnoses Orde r Schedule *Renal Function Panel (RFP) Lab Routine Chronic kidney disease stage 3 ([facility]) Expected: 09/08/2018, Expires: 09/09/2019 Urinalysis, Routine Lab Routine Chronic kidney disease stage 3 ([facility]) Expected: 09/08/2018, Expires: 09/09/2019 Vitamin D, 25-Hydroxy, Serum Lab Routine Chronic kidney disease stage 3 ([facility]) Expected: 12/29/2018, Expires: 09/09/2019 documented as of this encounter Procedures Procedure Name Priority Date/Time Associated Diagnosis Comments VITAMIN D, 25-OH, TOTAL,IA Routine 09/24/2018 10:25 AM CDT TOTAL PROTEIN W/ CREATININE, URINE, RANDOM Routine 09/24/2018 10:25 AM CDT Chronic kidney disease stage 3 ([facility]) RENAL FUNCTION PANEL (RFP) Routine 09/24/2018 10:25 AM CDT Chronic kidney disease stage 3 ([facility]) URINALYSIS, ROUTINE Routine 09/24/2018 1 0:25 AM CDT PTH INTACT W/O CALCIUM, SERUM Routine 09/24/2018 10:25 AM CDT Chronic kidney disease stage 3 (CMS-HCC) documented in this encounter Results * (ABNORMAL) Vitamin d, 25-Oh, Total,Ia (09/24/2018 10:25 AM CDT) Pathologist [facility] Calcidiol, Serum/Plasma 27(L) 30 - 100 ng/mL [facility] ([facility]) Comment: Vitamin D Status ? 25-OH Vitamin D: Deficiency: ?<20 ng/mL Insufficiency: ? 20 - 29 ng/mL Optimal: ? > or = 30 ng/mL For 25-OH Vitamin D testing on patients on D2-supplementation and patients for whom quantitation of D2 and D3 fractions is required, the QuestAssureD(TM) 25-OH VIT D, (D2,D3), LC/MS/MS is recommended: order code 88937 (patients >2yrs). For more information on this test, go to: http://education.[employer]/faq/REN875 (This link is being provided for informational/educational purposes only.) 09/24/2018 10:2 5 AM CDT 09/24/2018 10:26 AM CDT Narrative [facility] ([facility]) - 09/25/2018 2:45 PM CDT FASTING:YES FASTING: YES Resulting Agency Comment Performing Organization Information: ?Site ID: [place] ?Name: [facility] ?Address: [id number] [place] [address] [place] [address] ?Director: Hakeem Jenkins D.O., MPH Aubrey Reyna MD LAB BLOOD ORDERABLES [facility] ([facility]) * (ABNORMAL) Urinalysis, Routine (09/24/2018 10:25 AM CDT) Pathologist [facility] Color of Urine YELLOW YELLOW [facility]) Appearance of Urine CLOUDY(A) CLEAR [facility]) Specific gravity of Urine 1.015 1.001 - 1.035 [facility]) pH of Urine 5.5 5.0 - 8.[address] [facility]) Glucose, Urine NEGATIVE NEGATIVE [facility]) Reducing substances, Urine CANCELED NEGATIVE % [facility]) Comment:Result canceled by corky de santiago. Ketones, Urine NEGATIVE NEGATIVE [facility]) Hemoglobin, Urine NEGATIVE NEGATIVE [facility]) Protein, Urine NEGATIVE NEGATIVE [facility]) 09/24/2018 10:2 5 AM CDT 09/24/2018 10:26 AM CDT Narrative [facility] - 09/25/2018 2:45 PM CDT FASTING:YES FASTING: YES Resulting Agency Comment Performing Organization Information: ?Site ID: [place] ?Name: [facility] ?Address: [facility] [place]note 2] [address] [address] ?Director: Hakeem Jenkins D.O., MPH Aubrey Reyna MD LAB URINE ORDERABLES [facility] * Total Protein w/ Creatinine, Random, Urine (09/24/2018 10:25 AM CDT) Creatinine, Urine 125 20 - 275 mg/dL [facility]) Protein/Creatin ine, Urine 64 21 - 161 mg/g creat [facility]) Protein, Urine 8 5 - 24 mg/dL [facility]) 09/24/2018 10:2 5 AM CDT 09/24/2018 10:26 AM CDT Narrative [facility] - 09/25/2018 2:45 PM CDT FASTING:YES FASTING: YES Resulting Agency Comment Performing Organization Information: ?Site ID: [place] ?Name: [facility] ?Address: [address] [address] ?Director: Hakeem Jenkins D.O., MPH Aubrey Reyna MD LAB URINE ORDERABLES [facility] * (ABNORMAL) PTH Intact w/o Calcium, Serum (09/24/2018 10:25 AM CDT) PTH, Intact, Serum/Plasma 109(H) 14 - 64 pg/mL [facility]) Comment: Interpretive Guide ?Intact PTH ? Calcium ? ------- Normal Parathyroid ?Normal ? Normal Hypoparathyroidism ?Low or Low Normal ?Low Hyperparathyroidism ?? Primary ?Normal or High ? High ?? Secondary ?High ? Normal or Low ?? Tertiary ? High ? High Non-Parathyroid ?? Hypercalcemia ?Low or Low Normal ?High Blood (Blood, Venous) 09/24/2018 10:25 AM CDT 09/24/2018 10:26 AM CDT Narrative [facility] - 09/25/2018 2:45 PM CDT FASTING:YES FASTING: YES Resulting Agency Comment Performing Organization Information: ?Site ID: [place] ?Name: [facility] ?Address: [address] [address] ?Director: Hakeem Jenkins D.O., MPH Aubrey Reyna MD LAB BLOOD ORDERABLES [facility] * (ABNORMAL) *Renal Function Panel (RFP) (09/24/2018 10:25 AM CDT) Glucose, Serum/Plasma 144(H) 65 - 99 mg/dL [facility] Comment: ? Fasting reference interval For someone without known diabetes, a glucose value >125 mg/dL indicates that they may have diabetes and this should be confirmed with a follow-up test. Urea nitrogen, Serum/Plasma (BUN) 43(H) 7 - 25 mg/dL [facility]) Creatinine, Serum/Plasma 1.65(H) 0.50 - 0.99 mg/dL [facility] Comment: For patients >49 years of age, the reference limit for Creatinine is approximately 13% higher for people identified as -Austrian. eGFR, non 32(L) > OR = 60 mL/min/1. 73m2 [facility]) eGFR, 37(L) > OR = 60 mL/min/1. 73m2 [facility]) Urea nitrogen/Creatinin e, Serum/Plasma 26(H) 6 - 22 (calc) [facility]) Sodium, Serum/Plasma 135 135 - 146 mmol/L [facility]) Potassium, Serum/Plasma 5.8(H) 3.5 - 5.3 mmol/L [facility]) Chloride, Serum/Plasma 101 98 - 110 mmol/L [facility]) Carbon dioxide CO2), total, Serum/Plasma 27 20 - 32 mmol/L [facility]) Calcium, Serum/Plasma 9.7 8.6 - 10.4 mg/dL [facility]) Phosphate, Serum/Plasma 4.8(H) 2.1 - 4.3 mg/dL [facility]) Albumin, Serum/Plasma 4.4 3.6 - 5.1 g/dL [facility] Blood (Blood, Venous) 09/24/2018 10:25 AM CDT 09/24/2018 10:26 AM CDT Narrative [facility] - 09/25/2018 2:45 PM CDT FASTING:YES FASTING: YES Resulting Agency Comment Performing Organization Information: ?Site ID: [place] ?Name: [facility] ?Address: [address] [place] [address] ?Director: Hakeem Jenkins D.O., MPH Aubrey Reyna MD LAB BLOOD ORDERABLES [facility] documented in this encounter Visit Diagnoses Diagnosis Chronic kidney disease stage 3 ([facility]) Diabetes mellitus with renal manifestations ([facility]) Hypertensive renal disease documented in this encounter Care Teams Basket Grader Relationship Specialty Start Date End Date Karrie Tompkins MD [address] [place] [id number] PCP - General 09/07/18 documented as of this encounter
--- OUTSIDE RECORDS SUMMARY | 2024-04-11 03:37 | XMS_ITS | Encounter Summary ---
Author Organization [facility] Address [address] [place] [id number] Phone Care Team Providers Care Criminal Judge Name Role Phone Karrie Tompkins MD Primary Care Provider [phone] Encounter Details Date Type Department Care Team (Late st Contact Info) Description 10/08/2019 Orders Only [facility] Nephrology and Hypertension [facility], [address] [address] Aubrey Reyna MD [address] [facility], [address] [facility] [place] [address] Chronic kidney disease stage 3 (CMS-HCC) (Primary Dx) Social History Tobacco Use Types [...] as of this encounter Plan of Treatment Scheduled Orders Name Type Priority Associated Diagnoses Orde r Schedule Renal Function Panel (RFP) Lab Routine Chronic kidney disease stage 3 (CMS-HCC) 1 Occurrences starting 10/08/2019 until 10/07/2020 documented as of this encounter Visit Diagnoses Diagnosis Chronic kidney disease stage 3 (CMS-HCC)- Primary documented in this encounter Care Teams Criminal Judge Relationship Specialty Start Date End Date Karrie Tompkins MD [address] [place] [address] [place] [phone] PCP - General 09/07/18 documented as of this encounter
--- OUTSIDE RECORDS SUMMARY | 2024-04-11 03:37 | XMS_ITS | Encounter Summary ---
Author Organization [facility] Address [address] [place] [address] Phone Care Team Providers Care Mold Burner Name Role Phone Karrie Tompkins MD Primary Care Provider [phone] Encounter Details Date Type Department Care Team (Late st Contact Info) Description 10/09/2018 Telephone [facility] Nephrology and Hypertension [facility], [address] [place] [address] Aubrey Reyna MD [address] [facility], [address] [place] [address] Social History Tobacco Use Types Packs/Day Years [...] encounter Miscellaneous Notes * Telephone Encounter - Farzana Domínguez - 10/09/2018 3:38 PM CDT She had a call she thought was you. You don't need to call her back unless you see anything on the recent labs you need to talk to her about. R * Telephone Encounter - Aubrey Reyna MD - 10/09/2018 3:15 PM CDT I do not think I call her unless she paged me via the exchange --- did she need to talk to me aboutsomething specific? Let me know. Thanks. * Telephone Encounter - Farzana Domínguez - 10/09/2018 9:05 AM CDT Pt missed your call. Please call again. documented in this encounter Plan of Treatment Not on file documented as of this encounter Visit Diagnoses Not on filedocumented in this encounter Care Teams Mold Burner Relationship Specialty Start Date End Date Karrie Tompkins MD [address] [place] [address] [place] [phone] PCP - General 09/07/18 documented as of this encounter
--- OUTSIDE RECORDS SUMMARY | 2024-04-11 03:38 | XMS_ITS | Continuity of Care Document ---
Author Organization [facility] Address [address] [facility] [address] [place] [address] Phone Care Team Providers Care Client Evaluator Name Role Phone Daniel Corrales MD Unavailable Unavailable Procedures Procedure Date Special Reports Or Forms Miscellaneous Advance Directives Directive Yes / No Effective Date File Name No Information Encounters Encounter Description Practice Location Reason(s) For Visit Diagnoses Date Provider Providers Copied on Encounter [facility], [address] [place], [place] [address] [address], [place], [place], [id number], tel:[phone] [facility] No Information [address] [place], [id number], [place]. tel:[phone] [facility], [address] [place], [place] [address] [address], [place], [place], [id number], tel:[phone] [facility] No Information [address] [employer] [facility] [place], [id number], [place]. tel:[phone] Family History Family Member Type Diagnosis Age [...]
[2024-04-11 07:55] LABS: Hematocrit 23.4 % (37.0-47.0); Hemoglobin 7.5 g/dL (12.0-15.0); Mean Corpuscular HGB Conc 32.1 g/dl (32-36); Mean Corpuscular Hemoglobin 31.3 pg (26-34); Mean Corpuscular Volume 97.5 fl (80-100); Mean Platelet Volume 9.5 fl (7.4-10.4); Platelet Count Result 229 k/mm3 (150-375); Red Cell Distribution Width 14.4 % (11.5-14.5); White Blood Count 10.6 K/mm3 (4.5-10.0)
[2024-04-11] MEDS: FAMOTIDINE 10 MG TABLET PO (08:07)
[2024-04-11] MEDS: PRAVASTATIN SODIUM 20 MG TABLET 40 MG PO (08:08)
[2024-04-11] MEDS: CHOLECALCIFEROL 1,000 UNITS TABLET 2000 UNITS PO (08:08)
--- NOTE | 2024-04-11 08:21 | P.PNIM_ITS ---
Progress Note: A&P Assessment and Plan (1) Acute kidney injury (JAE) with acute tubular necrosis (ATN): Code(s): N17.0 - Acute kidney failure with tubular necrosis Status: Acute Assessment and Plan: Patient received IV contrast on 04/04/24 with already underlying CKD now with worsening renal failure * Baseline around 2.00 currently 3.00 04/05/24 * Avoid nephrotoxic drugs. * Avoid NSAIDs. * Routine CMP monitoring GFR. * Monitor electrolytes especially potassium. 04/06/2024 * Worsening Cr 4.40 today could be secondary Anesthesia from EGD * NS 75 D/C D/ * nephrology consulted for further recommendations and evaluation * bilateral renal ultrasound * Cipro D/c switched to Rocephin 04/07/2024: * Worsening Cr 5.16 * CT showing contrast in Kidneys from 3 days prior and anasarca in the stomach * failed fluid challenge will D/C * no urinary output Pedro placed with only 50 mL * Plan for renal function in the AM if no improvement hoping for renal recovery but may need temporary dialysis with consult to surgery for dialysis access. * Potassium 5.2 dose of Lokelma 04/08: JAE continues to worsen, acidosis continues to worsen, declining mental status with slurred speech and patient stating that she believes she a stroke, MRI ordered, several medications held this afternoon. Nephrology aware as I spoke with Dr. Reyna earlier and RN called to update with worsening clinical picture. 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 but denies any history of varices * Hgb 10.9 POA dropped to 8.7 * GI consulted * EGD showed Ferrell's esophagus * Continue with serial H&H 7.9 today * Protonix BID * avoid NSAIDS * Transfuse PRBC if Hgb <7.0 * Clear liquid diet 04/08: Tolerating clear liquid, no hematemesis or bloody stools Continue Protonix GI signing off 04/09 continue oral ppi 04/10 continue oral ppi 04/11 no active bleeding, hbg stable (3) Colitis: Code(s): K52.9 - Noninfective gastroenteritis and colitis, unspecified Status: Acute Assessment and Plan: CT abdomen showing colitis/There is an approximately 11.4 x 24 mm fatty lesion within the hepatic flexure of the colon, most consistent with a lipoma. This type of lesion can erode and cause rectal bleeding. * GI consulted * GI recommended ciprofloxacin and Flagyl * will need follow-up colonoscopy in 6-8 weeks after infectious process resulting unless her hemoglobin continues to trend down * PPI BID * clear liquid diet * WBC 12.2 today * Stool studies pending * bright red blood in stool reported * monitoring HGB 04/06/2024 * patient advanced to low-fiber diet but had N/V change back to clear liquid * F/U ct ABD * Hgb stable 04/08: Tolerated clears but altered LOC and slurred speech today, patient moved to IMU after findings of metabolic acidosis with incomplete compensation. 04/09 : pt remains acidotic awaiting dialysis, creat is 6.9, potassium is 5, ph is low, sodium is 125 04/10: ph is improving, creat is 4, sodium is 125 sp 2 dialysis sessions (4) Chronic kidney disease, stage IV (severe): Code(s): N18.4 - Chronic kidney disease, stage 4 (severe) Status: Acute Assessment and Plan: * Gentle IV hydration. * Baseline around 2.00 currently 3.00 04/05/24 * Avoid nephrotoxic drugs. * Monitor antihypertensive drug therapy. * Avoid NSAIDs. * Routine CMP monitoring GFR. * Monitor electrolytes especially potassium. * Antibiotic doses depending on creatinine clearance. * Pharmacy does medications. * Routine follow-up with Nephrology as an outpatient. 04/06/2024 * Worsening Cr 4.40 today could be secondary Anesthesia from EGD * NS 75 D/C D/5 * nephrology consulted for further recommendations and evaluation * bilateral renal ultrasound * Cipro D/c switched to Rocephin 04/08: Tolerated clears but altered LOC and slurred speech today, patient moved to IMU after findings of metabolic acidosis with incomplete compensation. Potentially encephalopathy due to build up of sedating medications. MRI ordered to assess for Stroke. 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 Status: Acute Assessment and Plan: * HX of and currently seen on EGD * PPI * Clear liquids * serial H&H 04/08: Hgb 7.9 in AM and 8.9 in afternoon 04/09: hb is 8 today 04/10 hb is 7.7 04/11 continue ppi (7) Hypertension: Code(s): I10 - Essential (primary) hypertension Status: Acute Assessment and Plan: 04/11 reviewed and controlled (8) Hypomagnesemia: Code(s): E83.42 - Hypomagnesemia Status: Acute Assessment and Plan: * Mag 1.1 * replenished with 4g * trend and replenish as needed RESOLVED 04/08: Magnesium 2.3 04/09 mg is 2.3 (9) Hyponatremia: Code(s): E87.1 - Hypo-osmolality and hyponatremia Status: Acute Assessment and Plan: * chronically low * resume sodium tablets 1000 * monitor neurological status 04/08: Sodium declining, salt tabs had been on hold so restarted today. IV fluid bolus LR 1000 mL and sodium bicarb given for metabolic acidosis related to decreased kidney function. 04/11 Na 130 (10) Metabolic acidosis: Code(s): E87.20 - Acidosis, unspecified Status: Acute Assessment and Plan: 04/08: patient with altered level of consciousness slurred speech. Ordered ABG. pH 7.147 pCO2 35.7 PO2 79.7 HC03 12.1 base excess -15.7 ordered 1 L LR bolus and 2 amps of sodium bicarb IV push 04/09 pt is on oral sodium bicarbonate remains acidotic this am () Encephalopathy acute: Code(s): G93.40 - Encephalopathy, unspecified Status: Acute Assessment and Plan: 04/08: patient with slurred speech difficulty awakening concerned for CO2 narcosis ABG resulted metabolic acidosis, beta hydroxybutyrate and lactic acid normal metabolic acidosis related to decreased renal function ammonia level negative, MRI brain without contrast also negative 04/09 likely secondary to uremia and severe MA 04/10 pt appears less confused today states she feels very tired 04/11 oriented x3, alert, continue to monitor Subjective Date/time seen: 04/11/24 08:21 Interval history: Tolerating hemodialysis. Feels confused. Appetite fair. Denied chest pain or shortness of breath or swelling. Denied GI or complaints. Denied abnormal bleeding. Denied fevers or chills. Review of Systems Review of Systems: All systems reviewed & are unremarkable except as noted in HPI and below Exam Narrative: HEENT: PERRL, sclerae nonicteric, pharyngeal mucosa pink and intact NECK: No JVD, adenopathy, or thyromegaly CHEST: Clear to auscultation. Normal effort. HEART: NL S1/S2, regular, no murmur ABDOMEN: BS+, soft, nontender, no mass, no bruits EXTREMITIES: No cyanosis, edema, or clubbing NEUROLOGIC: CN intact and symmetric to inspection. MUSCULOSKELETAL: Tone and strength symmetric, but diminished in LE's. PSYCH: Alert. Oriented to person, place, and time (month & year). Objective Data Vital Signs Vital Signs: Vital Signs - 24 hr 04/10/24 09:33 04/10/24 09:45 04/10/24 10:00 Temperature 98.4 F Pulse Rate 83 81 81 Respiratory Rate 16 Blood Pressure 159/70 H 159/70 H 155/69 H Pulse Oximetry 95 Oxygen Delivery 04/10/24 10:15 04/10/24 10:30 04/10/24 10:45 Temperature Pulse Rate 81 82 82 Respiratory Rate Blood Pressure 121/52 L 136/62 138/62 Pulse Oximetry Oxygen Delivery 04/10/24 11:00 04/10/24 11:15 04/10/24 11:30 Temperature Pulse Rate 82 82 78 Respiratory Rate Blood Pressure 145/67 H 124/58 L 103/46 L Pulse Oximetry Oxygen Delivery 04/10/24 11:45 04/10/24 12:00 04/10/24 12:15 Temperature Pulse Rate 82 80 81 Respiratory Rate Blood Pressure 110/53 L 137/65 145/63 H Pulse Oximetry Oxygen Delivery 04/10/24 12:30 04/10/24 12:45 04/10/24 12:49 Temperature Pulse Rate 80 81 82 Respiratory Rate Blood Pressure 147/66 H 174/60 H 154/64 H Pulse Oximetry Oxygen Delivery 04/10/24 13:02 04/10/24 14:00 04/10/24 15:22 Temperature 98.4 F 98.0 F Pulse Rate 84 87 84 Respiratory Rate 18 22 H Blood Pressure 156/69 H 127/38 L Pulse Oximetry 97 96 Oxygen Delivery 04/10/24 16:00 04/10/24 16:00 04/10/24 18:00 Temperature Pulse Rate 87 86 Respiratory Rate Blood Pressure Pulse Oximetry Oxygen Delivery Room Air 04/10/24 20:00 04/10/24 20:00 04/10/24 20:00 Temperature 97.8 F Pulse Rate 84 82 Respiratory Rate 22 H Blood Pressure 123/68 Pulse Oximetry 100 Oxygen Delivery Room Air 04/10/24 21:09 04/10/24 22:00 04/11/24 00:00 Temperature 97.8 F Pulse Rate 84 80 Respiratory Rate 22 H Blood Pressure 123/68 Pulse Oximetry 100 Oxygen Delivery Room Air 04/11/24 00:00 04/11/24 01:22 04/11/24 02:00 Temperature 97.7 F Pulse Rate 77 79 78 Respiratory Rate 22 H Blood Pressure 153/59 H Pulse Oximetry 97 Oxygen Delivery 04/11/24 04:00 04/11/24 04:00 04/11/24 04:07 Temperature 97.7 F Pulse Rate 78 78 Respiratory Rate 22 H Blood Pressure 141/51 H Pulse Oximetry 97 Oxygen Delivery Room Air 04/11/24 06:00 04/11/24 08:00 Temperature 98.0 F Pulse Rate 78 79 Respiratory Rate 18 Blood Pressure 143/55 H Pulse Oximetry 100 Oxygen Delivery Intake/Output Intake/Output: Intake & Output 04/08/24 04/09/24 04/10/24 04/11/24 23:59 23:59 23:59 23:59 Intake Total 317 240 125 Output Total 70 0 125 25 Balance 247 0 115 100 Meds/Results Medications: Active Medications Generic Name Dose Route Start Last Admin Trade Name Freq PRN Reason Stop Dose Admin Acetaminophen 650 mg 04/04/24 12:10 04/08/24 17:40 Acetaminophen 325 Mg Tablet PO 650 mg Q4H PRN Administration Mild Pain (1-3) or Fever Artificial Tears 1 drop 04/04/24 20:15 Artificial Tears Ophth Soln 15 Ml Bottle EACH EYE Q4H PRN Dry Eye(S) Bupropion HCl 100 mg 04/05/24 09:00 04/08/24 08:52 Bupropion Hcl 100 Mg Tablet PO 100 mg BID JUAN PABLO Administration Calcitriol 0.25 mcg 04/06/24 09:00 04/10/24 09:02 Calcitriol 0.25 Mcg Capsule BY MOUTH 0.25 mcg [id number] JUAN PABLO Administration Carvedilol 12.5 mg 04/04/24 21:00 04/05/24 20:43 Carvedilol 12.5 Mg Tablet PO Not Given Q12HR JUAN PABLO Dextrose 12.5 gm 04/04/24 21:51 Dextrose 50% 25 Gm/50 Ml Syringe IV PUSH PRN PRN Hypoglycemia Protocol Epoetin Ki-epbx 10,000 units 04/11/24 19:27 Epoetin Ki-Epbx 10,000 Units/Ml Vial IV PUSH 04/11/24 19:28 ONCE ONE Escitalopram Oxalate 10 mg 04/08/24 09:00 04/08/24 08:52 Escitalopram Oxalate 10 Mg Tablet PO 10 mg DAILY JUAN PABLO Administration Famotidine 10 mg 04/10/24 09:00 04/11/24 08:07 Famotidine 10 Mg Tablet PO 10 mg DAILY JUAN PABLO Administration Glucagon 1 mg 04/04/24 21:51 Glucagon For Inj 1 Mg Vial IM PRN PRN Hypoglycemia Protocol Glucose 15 gm 04/04/24 21:51 Glucose Oral Gel 15 Gm Of Glucse In 37.5 Gm Tube PO PRN PRN Hypoglycemia Protocol Hydromorphone HCl 0.5 mg 04/04/24 12:10 Hydromorphone Hcl Inj (*Crx) 1 Mg/Ml Syr IV PUSH Q4H PRN Pain Rated 7-10 Dextrose 1,000 mls @ 100 mls/hr 04/04/24 21:51 Dextrose 5% 1,000 Ml IVPB PRN PRN Hypoglycemia Protocol Albumin Human 50 mls @ 999 mls/hr 04/09/24 11:16 Albutein IVPB 05/09/24 11:15 Q10M PRN HYPOTENSION Sodium Chloride 1,000 mls @ 999 mls/hr 04/11/24 07:26 Normal Saline Iv IV CONT 04/11/24 08:26 .Q1H1M ONE Latanoprost 1 drop 04/05/24 09:00 04/10/24 08:55 Latanoprost 0.005% Op Soln 2.5 Ml Btl EACH EYE Not Given DAILY [facility] Loratadine 10 mg 04/04/24 20:25 Loratadine 10 Mg Tablet PO QAM PRN allergy symptoms Ondansetron HCl 4 mg 04/04/24 12:10 Ondansetron Inj 4 Mg/2 Ml Vial IV PUSH Q4H PRN Nausea Pravastatin Sodium 40 mg 04/05/24 09:00 04/11/24 08:08 Pravastatin Sodium 20 Mg Tablet PO 40 mg DAILY JUAN PABLO Administration Quetiapine Fumarate 100 mg 04/04/24 21:00 04/07/24 21:06 Quetiapine Fumarate 100 Mg Tablet PO 100 mg HS JUAN PABLO Administration Vitamin D 2,000 units 04/05/24 09:00 04/11/24 08:08 Cholecalciferol 1,000 Units Tablet PO 2,000 units BID JUAN PABLO Administration Radiology Results: ITS Impressions Renal Ultrasound 04/06/24 11:46 Impression: Unremarkable ultrasound of the kidneys. Cholelithiasis and gallbladder sludge incidentally noted. Abdomen/Pelvis CT 04/06/24 19:19 IMPRESSION: Left basilar infiltrate with a small right-sided pleural effusion, an interval change from 04/04/2023. Marked delayed excretion within the bilateral kidneys, consistent with patient's history. Fluid distention of the stomach, extending to the proximal jejunum consistent with patient's history Mural thickening within the rectosigmoid colon with multiple diverticula and trace surrounding inflammatory change, similar in appearance to examination dated 04/04/2024. No drainable fluid collections or gross perforation is noted. Interval development of significant anasarca and retroperitoneal inflammatory change. Brain MRI 04/08/24 17:05 IMPRESSION: 1. Normal aging brain. Chest X-Ray 04/10/24 08:29 Impression: 1: No acute cardiopulmonary disease. Labs Labs: Laboratory Results - last 24 hr 04/10/24 04/11/24 04/11/24 18:28 00:33 07:42 WBC 10.6 H RBC 2.40 L Hgb 7.5 L Hct 23.4 L MCV 97.5 MCH 31.3 MCHC 32.1 RDW 14.4 Plt Count 229 MPV 9.5 POC Capillary Glucose 133 H 105
[2024-04-11 08:34] LABS: Alanine Aminotransferase 8 U/L (6-35); Albumin Level 2.7 g/dL (3.5-5.1); Alkaline Phosphatase 57 U/L (38-126); Anion Gap 5 mmol/L (4-12); Aspartate Amino Transferase 19 U/L (14-36); Bilirubin,Total 0.4 mg/dL (0.2-1.3); Blood Urea Nitrogen 19 mg/dL (7-17); Calcium 8.2 mg/dL (8.4-10.2); Carbon Dioxide 29 mmol/L (22-30); Chloride 98 mmol/L (98-107); Estimated Glomerular Filt Rate 14; Glucose 87 mg/dL (65-110); Magnesium 2.1 mg/dL (1.6-2.3); Potassium 3.5 mmol/L (3.4-5.0); Sodium 132 mmol/L (137-145)
--- NOTE | 2024-04-11 08:46 | PC.NURSE ---
0815 to dialysis via bed accompanied by staff
--- NOTE | 2024-04-11 11:13 | P.PNNP_ITS ---
Progress Note: A&P Assessment and Plan (1) JAE (acute kidney injury): Code(s): N17.9 - Acute kidney failure, unspecified Status: Acute Assessment and Plan: * as noted since admission * suspect multifactorial etiology: * prerenal factors * relative hypotension * contrast exposure (CT with contrast on 04/04/24) * LENNIE-I use prior to admission * relative anemia * other (?) * evaluation to date noted: * urine electrolytes prerenal * urine eosinophils negative * UA without evidence of infection * CPK normal * renal utrasound okay * repeat CT of A/P still notes contrast present in kidneys * Still not making very much urine * s/p non tunneled left femoral temporary HD catheter placement on 04/09/23 * Dialysis underway * Volume status looks okay. * (2) Chronic kidney disease, stage IV (severe): Code(s): N18.4 - Chronic kidney disease, stage 4 (severe) Status: Acute Assessment and Plan: * baseline creatinine runs ~ 1.8 - 2.3mg/dl * due hypertension, diabetes, and age-related change with contributions with previous use of NSAIDs (3) Metabolic acidosis: Code(s): E87.20 - Acidosis, unspecified Status: Acute Assessment and Plan: * CO2 has improved to above normal * Bicarbonate discontinued (4) Hyponatremia: Code(s): E87.1 - Hypo-osmolality and hyponatremia Status: Acute Assessment and Plan: * chronic issues at baseline * likely worsened by JAE/ARF * Sodium level has improved at an appropriate rate. (5) GI bleed: Code(s): K92.2 - Gastrointestinal hemorrhage, unspecified Status: Acute Assessment and Plan: * reported history of vomiting blood [employer] * known history of Barrettt's esophagus * Hgb dropped since admission * GI following: * s/p EGD - no active bleeding with Ferrell's esophagus * on PPI * No active bleeding * Hemoglobin stable (6) Colitis: Code(s): K52.9 - Noninfective gastroenteritis and colitis, unspecified Status: Acute Assessment and Plan: * as noted by admission CT of A/P * GI recommendations noted * off antibiotics * advance diet as tolerated (7) Chronic anemia: Code(s): D64.9 - Anemia, unspecified Status: Chronic Assessment and Plan: * probably related to CKD * acute worsening noted since admission due to GI bleed * Getting SANDRA * Hemoglobin stable (8) Hypertension: Code(s): I10 - Essential (primary) hypertension Status: Acute Assessment and Plan: * BP variable recently * Systolic ranging from 110-150 Will continue to follow. Subjective Date/time seen: 04/11/24 11:13 Interval history: Patient is on dialysis and tolerating it well. She was seen at 10:25 a.m. About 1L being removed Blood pressure is doing well. Patient denies shortness of breath Exam Narrative: General: elderly but somewhat ill-appearing female in NAD Heart: normal S1 and S2; no rub or gallop Lungs: clear bilaterally Abdomen: soft, mild TTP, nondistended, positive bowel sounds Extremities: no cyanosis or clubbing; no edema Skin: No rash Objective Data Vital Signs Vital Signs: Vital Signs - 24 hr 04/10/24 11:15 04/10/24 11:30 04/10/24 11:45 Temperature Pulse Rate 82 78 82 Respiratory Rate Blood Pressure 124/58 L 103/46 L 110/53 L Pulse Oximetry Oxygen Delivery 04/10/24 12:00 04/10/24 12:15 04/10/24 12:30 Temperature Pulse Rate 80 81 80 Respiratory Rate Blood Pressure 137/65 145/63 H 147/66 H Pulse Oximetry Oxygen Delivery 04/10/24 12:45 04/10/24 12:49 04/10/24 13:02 Temperature 98.4 F Pulse Rate 81 82 84 Respiratory Rate 18 Blood Pressure 174/60 H 154/64 H 156/69 H Pulse Oximetry 97 Oxygen Delivery 04/10/24 14:00 04/10/24 15:22 04/10/24 16:00 Temperature 98.0 F Pulse Rate 87 84 Respiratory Rate 22 H Blood Pressure 127/38 L Pulse Oximetry 96 Oxygen Delivery Room Air 04/10/24 16:00 04/10/24 18:00 04/10/24 20:00 Temperature Pulse Rate 87 86 Respiratory Rate Blood Pressure Pulse Oximetry Oxygen Delivery Room Air 04/10/24 20:00 04/10/24 20:00 04/10/24 21:09 Temperature 97.8 F 97.8 F Pulse Rate 84 82 84 Respiratory Rate 22 H 22 H Blood Pressure 123/68 123/68 Pulse Oximetry 100 100 Oxygen Delivery 04/10/24 22:00 04/11/24 00:00 04/11/24 00:00 Temperature Pulse Rate 80 77 Respiratory Rate Blood Pressure Pulse Oximetry Oxygen Delivery Room Air 04/11/24 01:22 04/11/24 02:00 04/11/24 04:00 Temperature 97.7 F Pulse Rate 79 78 Respiratory Rate 22 H Blood Pressure 153/59 H Pulse Oximetry 97 Oxygen Delivery Room Air 04/11/24 04:00 04/11/24 04:07 04/11/24 06:00 Temperature 97.7 F Pulse Rate 78 78 78 Respiratory Rate 22 H Blood Pressure 141/51 H Pulse Oximetry 97 Oxygen Delivery 04/11/24 08:00 04/11/24 08:00 04/11/24 08:46 Temperature 98.0 F 98.2 F Pulse Rate 79 77 77 Respiratory Rate 18 18 Blood Pressure 143/55 H 156/75 H Pulse Oximetry 100 99 Oxygen Delivery 04/11/24 08:59 04/11/24 09:15 04/11/24 09:30 Temperature Pulse Rate 77 74 75 Respiratory Rate Blood Pressure 153/69 H 144/63 H 141/66 H Pulse Oximetry Oxygen Delivery 04/11/24 09:45 04/11/24 10:00 04/11/24 10:15 Temperature Pulse Rate 73 73 77 Respiratory Rate Blood Pressure 119/55 L 126/55 L 143/66 H Pulse Oximetry Oxygen Delivery 04/11/24 10:30 04/11/24 10:45 Temperature Pulse Rate 73 74 Respiratory Rate Blood Pressure 140/62 131/61 Pulse Oximetry Oxygen Delivery Intake/Output Intake/Output: Intake & Output 04/08/24 04/09/24 04/10/24 04/11/24 23:59 23:59 23:59 23:59 Intake Total 317 240 365 Output Total 70 0 125 25 Balance 247 0 115 340 Meds/Results Medications: Active Medications Generic Name Dose Route Start Last Admin Trade Name Freq PRN Reason Stop Dose Admin Acetaminophen 650 mg 04/04/24 12:10 04/08/24 17:40 Acetaminophen 325 Mg Tablet PO 650 mg Q4H PRN Administration Mild Pain (1-3) or Fever Artificial Tears 1 drop 04/04/24 20:15 Artificial Tears Ophth Soln 15 Ml Bottle EACH EYE Q4H PRN Dry Eye(S) Calcitriol 0.25 mcg 04/06/24 09:00 04/10/24 09:02 Calcitriol 0.25 Mcg Capsule BY MOUTH 0.25 mcg [id number] JUAN PABLO Administration Dextrose 12.5 gm 04/04/24 21:51 Dextrose 50% 25 Gm/50 Ml Syringe IV PUSH PRN PRN Hypoglycemia Protocol Epoetin Ki-epbx 10,000 units 04/11/24 19:27 Epoetin Ki-Epbx 10,000 Units/Ml Vial IV PUSH 04/11/24 19:28 ONCE ONE Famotidine 10 mg 04/10/24 09:00 04/11/24 08:07 Famotidine 10 Mg Tablet PO 10 mg DAILY JUAN PABLO Administration Glucagon 1 mg 04/04/24 21:51 Glucagon For Inj 1 Mg Vial IM PRN PRN Hypoglycemia Protocol Glucose 15 gm 04/04/24 21:51 Glucose Oral Gel 15 Gm Of Glucse In 37.5 Gm Tube PO PRN PRN Hypoglycemia Protocol Dextrose 1,000 mls @ 100 mls/hr 04/04/24 21:51 Dextrose 5% 1,000 Ml IVPB PRN PRN Hypoglycemia Protocol Albumin Human 50 mls @ 999 mls/hr 04/09/24 11:16 Albutein IVPB 05/09/24 11:15 Q10M PRN HYPOTENSION Latanoprost 1 drop 04/05/24 09:00 04/10/24 08:55 Latanoprost 0.005% Op Soln 2.5 Ml Btl EACH EYE Not Given DAILY JUAN PABLO Loratadine 10 mg 04/04/24 20:25 Loratadine 10 Mg Tablet PO QAM PRN allergy symptoms Ondansetron HCl 4 mg 04/04/24 12:10 Ondansetron Inj 4 Mg/2 Ml Vial IV PUSH Q4H PRN Nausea Pravastatin Sodium 40 mg 04/05/24 09:00 04/11/24 08:08 Pravastatin Sodium 20 Mg Tablet PO 40 mg DAILY JUAN PABLO Administration Vitamin D 2,000 units 04/05/24 09:00 04/11/24 08:08 Cholecalciferol 1,000 Units Tablet PO 2,000 units BID JUAN PABLO Administration Radiology Results: ITS Impressions Renal Ultrasound 04/06/24 11:46 Impression: Unremarkable ultrasound of the kidneys. Cholelithiasis and gallbladder sludge incidentally noted. Abdomen/Pelvis CT 04/06/24 19:19 IMPRESSION: Left basilar infiltrate with a small right-sided pleural effusion, an interval change from 04/04/2023. Marked delayed excretion within the bilateral kidneys, consistent with patient's history. Fluid distention of the stomach, extending to the proximal jejunum consistent with patient's history Mural thickening within the rectosigmoid colon with multiple diverticula and trace surrounding inflammatory change, similar in appearance to examination dated 04/04/2024. No drainable fluid collections or gross perforation is noted. Interval development of significant anasarca and retroperitoneal inflammatory change. Brain MRI 04/08/24 17:05 IMPRESSION: 1. Normal aging brain. Chest X-Ray 04/10/24 08:29 Impression: 1: No acute cardiopulmonary disease. Labs Labs: Laboratory Results - last 24 hr 04/10/24 04/11/24 04/11/24 18:28 00:33 07:42 WBC 10.6 H RBC 2.40 L Hgb 7.5 L Hct 23.4 L MCV 97.5 MCH 31.3 MCHC 32.1 RDW 14.4 Plt Count 229 MPV 9.5 Sodium 132 L Potassium 3.5 Chloride 98 Carbon Dioxide 29 Anion Gap 5 BUN 19 H D Creatinine 3.19 H Estim Creat Clear Calc Not Reportable Estimated GFR 14 L Glucose 87 POC Capillary Glucose 133 H 105 Calcium 8.2 L Magnesium 2.1 Total Bilirubin 0.4 AST 19 ALT 8 Alkaline Phosphatase 57 Total Protein 5.0 L Albumin 2.7 L
[2024-04-11] MEDS: EPOETIN ALFA-EPBX 10,000 UNITS/ML VIAL 10000 UNITS IV PUSH (11:22)
[2024-04-11] MEDS: HEPARIN SODIUM 1,000 UNITS/ML VIAL 4000 UNITS IV PUSH (12:45)
--- OUTSIDE RECORDS SUMMARY | 2024-04-11 13:15 | XMS_ITS | CONTINUITY OF CARE DOCUMENT ---
Author Name [email or web address] Address Unknown Organization [facility] Address [address] [place] [address] Phone [phone] Care Team Providers Care Supervisor [employer] Name Role Phone Aaron Conte MD Unavailable [phone] FLEX SANTOS MD Unavailable [phone] FLEX SANTOS MD Unavailable [phone] INSURANCE PROVIDERS Payer name Policy type / Coverage type [employer] party ID [id number] MEDICARE COMPLETE HMO Other [id number]
--- OUTSIDE RECORDS SUMMARY | 2024-04-11 13:15 | XMS_ITS | Referral Summary ---
Author Organization [facility] [email or web address] Address [address] [facility] [address] Care Team Providers Care Streets And Buildings Decorator Name Role Phone Karrie Phillips MD Primary Care Provider [phone] Source Comments [facility],non-owned Affiliates and Associated Physician Practices is amultiple site organization consisting of ambulatory clinics and hospital sitesin [place], [place], [place] and [place]. This disclosure is being madepursuant to the Care Everywhere program and may not contain all information available regarding this patient. Last updated 17.[facility] [email or web address] Allergies Active Allergy Reactions Criticality Noted Date [...] 24 hours. 02/19/2022 Active saline nasal spray ([place]; Baby [place]) 0.65 % nasal spray [place] 1 (one) spray into each nostril as [...] at all 06/04/2022 [facility] [place] of Occupat ional Health - Occupational Stress [...] place to sleep or slept in a alf (including now)? No 06/04/2022 Sex and Gender [...] lb 3.2 oz) 06/04/2023 2:02 P M IOS SOFTWARE ENGINEER Height 154.9 cm (5' 1 ) 12/04/2022 [...] st Contact Info) Description 06/02/2024 1:45 PM IOS SOFTWARE ENGINEER Office Visit [facility] [address] [place] [address], [facility] [place] [address] Deon Taylor MD [address] [place] [address] Medical Devices Implanted Type Area Pipe Fitter Welding Device Identifier Shelf Expiration Date Model / Serial / Lot Jean Bone Void 10ml Dbm Grftn Algrf Ptty Implanted:Qty: 1 on 06/04/2022 by Deon Taylor MD at [facility] N/A: Spine Medtronic Inc 05/04/2025 [id number] / / [id number] 90mm Rods Implanted:Qty: 2 on 06/04/2022 by Deon Taylor MD at [facility] N/A: Spine Synthes Spine 1020-63-090 / / Jean Bone Void 10ml Dbm Grftn Algrf Ptty Implanted:Qty: 1 on 06/04/2022 by Deon Taylor MD at [facility] N/A: Spine Medtronic Inc 05/04/2025 [id number] / / [id number] Graft Bone Canc 4-9.5mm 15cc Frzdr Chp Implanted:Qty: 1 on 06/04/2022 by Deon Taylor MD at [facility] N/A: Spine Allosource 02/26/2027 [id number] / / [id number] Graft Bone Canc 4-9.5mm 30cc Algrf Frzdr Implanted:Qty: 1 on 06/04/2022 by Deon Taylor MD at [facility] N/A: Spine Allosource 12/27/2025 [id number] / / [id number] 3.5 X 14mm Screw Implanted:Qty: 4 on 06/04/2022 by Deon Taylor MD at [facility] N/A: Spine Synthes Spine [id number] / / 4.0x 20mm Screw Implanted:Qty: 2 on 06/04/2022 by Deon Taylor MD at [facility] N/A: Spine Synthes Spine [id number] / / 5.0 X 24mm Screw Implanted:Qty: 2 on 06/04/2022 by Deon Taylor MD at [facility] N/A: Spine Synthes Spine [id number] / / 4.5 X 26mm Screw Implanted:Qty: 2 on 06/04/2022 by Deon Taylor MD at [facility] N/A: Spine Synthes Spine [id number] / / Screw Caps Implanted:Qty: 10 on 06/04/2022 by Deon Taylor MD at [facility] N/A: Spine Synthes Spine [id number] / / Procedures Procedure Name Priority Date/Time Associated Diagnosis Comments BASIC METABOLIC PANEL (CALCIUM TOTAL) AM Draw 06/23/2022 3:06 AM CDT Coffee ground emesis HEMOGLOBIN A1C Routine 06/06/2022 3:07 AM IOS SOFTWARE ENGINEER from Last 3 Months or Most Recently Relevant to Health Maintenance Results * (ABNORMAL) BASIC METABOLIC PANEL (CALCIUM TOTAL) (06/23/2022 3:06 AM CDT) BUN 10 7 - 26 mg/dL 06/23/2022 4:38 AM [facility] Creatinine 1.09(H) 0.56 - 0.96 mg/dL 06/23/2022 4:38 AM [facility] Sodium 131(L) 136 - 145 mmol/L 06/23/2022 4:38 AM [facility] Potassium 4.2 3.5 - 4.5 mmol/L 06/23/2022 4:38 AM [facility] Chloride 100 98 - 107 mmol/L 06/23/2022 4:38 AM [facility] CO2 22 22 - 29 mmol/L 06/23/2022 4:38 AM [facility] Glucose 111 70 - 115 mg/dL 06/23/2022 4:38 AM [facility] Calcium 8.2(L) 8.4 - 10.2 mg/dL 06/23/2022 4:38 AM [facility] Anion Gap 13 8 - 18 06/23/2022 4:38 AM [facility] BUN/Creatinine Ratio 9 7 - 23 06/23/2022 4:38 AM [facility] Osmolality Calculated 272 270 - 300 mOsm/kg 06/23/2022 4:38 AM [facility] eGFR by CKD-EPI 54(L) >=90 mL/min/1.7 3 m2 06/23/2022 4:38 AM CDT [facility] Blood BLOOD SPECIMEN / Unknown Lab Venipuncture / Unknown 06/23/2022 3:06 AM CDT 06/23/2022 4:03 AM CDT Anabell Hernandez PA-C LAB - CHEMISTRY ORD ERABLES Performing Organization Address [facility]/ZIP Co de Phone Number [facility] [address] [place] [address], [facility] [phone] * HEMOGLOBIN A1C (06/06/2022 3:07 AM IOS SOFTWARE ENGINEER) Hemoglobin A1c 5.3 <=5.6 % 06/06/2022 3:38 PM [facility] Estimated Average Glucose 105 mg/dL 06/06/2022 3:38 PM [facility] Comment: HbA1c Interpretation: Normal : < 5.7% Pre-diabetes: 5.7-6.4% Diabetes: Equal to or greater than 6.5% Test results diagnostic of diabetes should be repeated for confirmation. Treatment target values recommended by ADA and other clinical organizations should be used to evaluate metabolic control in patients. Reference: [place] Diabetes Association, Standards of Care in Diabetes -2020 In patients 70 years and older consider HbA1c target range of 7.0-7.5% (Reference: Oswaldo Liz et al. JAMDA. 2012) The Sebia assay for the measurement of HbA1c is a National Glycohemoglobin Standardization Program (NGSP) certified method. Blood BLOOD SPECIMEN / Unknown Lab Venipuncture / Unknown 06/06/2022 3:07 AM IOS SOFTWARE ENGINEER 06/06/2022 3:28 AM IOS SOFTWARE ENGINEER Ama Gonzalez MD LAB - CHEMISTRY ORDERABLES Performing Organization Address City/[facility]/ZIP Co de Phone Number [facility] [address] [place] [address], [place] [phone] from Last 3 Months or Most Recently Relevant to Health Maintenance Advance Directives * Full Code (Latest Code Status on File) Date Activated Date Inactivated Comments 06/20/2022 6:09 PM 06/23/2022 5:59 PM * Full Code Date Activated Date Inactivated Comments 06/04/2022 1:16 PM 06/08/2022 11:04 PM * Full Code Date Activated Date Inactivated Comments 02/15/2022 5:44 AM 02/19/2022 3:38 PM Care Teams Streets And Buildings Decorator Relationship Specialty Start Date End Date Karrie Phillips MD [address] [place] [address] PCP - General 03/13/22
--- OUTSIDE RECORDS SUMMARY | 2024-04-11 13:15 | XMS_ITS | Clinical Summary ---
Author Organization [facility] Address [address] [facility] [place] [address] Care Team Providers Care Help Desk Internship Name Role Phone Karrie Phillips MD Primary Care Provider [phone] Source Comments [facility],non-owned Affiliates and Associated Physician Practices is amultiple site organization consisting of ambulatory clinics and hospital sitesin [place], [place], [place] and [place]. This disclosure is being madepursuant to the Care Everywhere program and may not contain all information available regarding this patient. Last updated 17.[facility] Allergies Active Allergy Reactions Criticality Noted Date [...] 24 hours. 02/19/2022 Active saline nasal spray ([place]; Baby [place]) 0.65 % nasal spray [place] 1 (one) spray into each nostril as [...] heating? Not hard at all 06/04/2022 [facility] [place] of Occupat ional Health - Occupational Stress [...] lb 3.2 oz) 06/04/2023 2:02 P M COMMERCIAL MANAGER Height 154.9 cm (5' 1 ) 12/04/2022 2:47 PM CDT Body Mass Index 28.57 12/04/2022 2:47 PM CDT Plan of Treatment Upcoming Encounters Date Type Department Care Team (Late st Contact Info) Description 06/02/2024 1:45 PM COMMERCIAL MANAGER Office Visit [facility] [address] [place] [address], [facility] [place] [address] Deon Taylor MD [address] [place] [address] Health Maintenance Due Date Last Done Comments [...] this topic Medical Devices Implanted Type Area Epic [employer] Device Identifier Shelf Expiration Date Model / Serial / Lot Jean Bone Void 10ml Dbm Grftn Algrf Ptty Implanted:Qty: 1 on 06/04/2022 by Deon Taylor MD at [facility] N/A: Spine Medtronic Inc 05/04/2025 [id number] / / [id number] 90mm Rods Implanted:Qty: 2 on 06/04/2022 by Deon Taylor MD at [facility] N/A: Spine Synthes Spine 1020-63-090 / / Jean Bone Void 10ml Dbm Grftn Algrf Ptty Implanted:Qty: 1 on 06/04/2022 by Deon Taylor MD at [facility] N/A: Spine Medtronic Inc 05/04/2025 [id number] / / [id number] Graft Bone Canc 4-9.5mm 15cc Frzdr Chp Implanted:Qty: 1 on 06/04/2022 by Deon Taylor MD at [facility] N/A: Spine Allosource 02/26/2027 [id number] / / [id number] Graft Bone Canc 4-9.5mm 30cc Algrf Frzdr Implanted:Qty: 1 on 06/04/2022 by Deon Taylor MD at [facility] N/A: Spine Allosource 12/27/2025 [id number] / / [id number] 3.5 X 14mm Screw Implanted:Qty: 4 on 06/04/2022 by Deon Taylor MD at [facility] N/A: Spine Synthes Spine [id number] / / 4.0x 20mm Screw Implanted:Qty: 2 on 06/04/2022 by Deon Taylor MD at [facility] N/A: Spine Synthes Spine [id number] / / 5.0 X 24mm Screw Implanted:Qty: 2 on 06/04/2022 by Deon Taylor MD at [facility] N/A: Spine Synthes Spine [id number] / / 4.5 X 26mm Screw Implanted:Qty: 2 on 06/04/2022 by Deon Taylor MD at [facility] N/A: Spine Synthes Spine [id number] / / Screw Caps Implanted:Qty: 10 on 06/04/2022 by Deon Taylor MD at [facility] N/A: Spine Synthes Spine [id number] / / Procedures Procedure Name Priority Date/Time Associated Diagnosis Comments BASIC METABOLIC PANEL (CALCIUM TOTAL) AM Draw 06/23/2022 3:06 AM CDT Coffee ground emesis HEMOGLOBIN A1C Routine 06/06/2022 3:07 AM COMMERCIAL MANAGER from Last 3 Months or Most Recently Relevant to Health Maintenance Results * (ABNORMAL) BASIC METABOLIC PANEL (CALCIUM TOTAL) (06/23/2022 3:06 AM T) BUN 10 7 - 26 mg/dL 06/23/2022 4:38 AM [facility] Creatinine 1.09(H) 0.56 - 0.96 mg/dL 06/23/2022 4:38 AM [facility] Sodium 131(L) 136 - 145 mmol/L 06/23/2022 4:38 AM [facility] Potassium 4.2 3.5 - 4.5 mmol/L 06/23/2022 4:38 AM [facility] Chloride 100 98 - 107 mmol/L 06/23/2022 4:38 AM [facility] CO2 22 22 - 29 mmol/L 06/23/2022 4:38 AM [facility] Glucose 111 70 - 115 mg/dL 06/23/2022 4:38 AM [facility] Calcium 8.2(L) 8.4 - 10.2 mg/dL 06/23/2022 4:38 AM [facility] Anion Gap 13 8 - 18 06/23/2022 4:38 AM [facility] BUN/Creatinine Ratio 9 7 - 23 06/23/2022 4:38 AM [facility] Osmolality Calculated 272 270 - 300 mOsm/kg 06/23/2022 4:38 AM [facility] eGFR by CKD-EPI 54(L) >=90 mL/min/1.7 3 m2 06/23/2022 4:38 AM [facility] Blood BLOOD SPECIMEN / Unknown Lab Venipuncture / Unknown 06/23/2022 3:06 AM CDT 06/23/2022 4:03 AM [facility] Anabell Hernandez PA-C LAB - CHEMISTRY ORD ERABLES [facility] [address] [place] [address], [facility] [phone] * HEMOGLOBIN A1C (06/06/2022 3:07 AM COMMERCIAL MANAGER) Hemoglobin A1c 5.3 <=5.6 % 06/06/2022 3:38 PM [facility] Estimated Average Glucose 105 mg/dL 06/06/2022 3:38 PM [facility] Comment: HbA1c Interpretation: Normal : < 5.7% Pre-diabetes: 5.7-6.4% Diabetes: Equal to or greater than 6.5% Test results diagnostic of diabetes should be repeated for confirmation. Treatment target values recommended by ADA and other clinical organizations should be used to evaluate metabolic control in patients. Reference: [place] Diabetes Association, Standards of Care in Diabetes -2020 In patients 70 years and older consider HbA1c target range of 7.0-7.5% (Reference: Oswaldo Liz et al. JAMDA. 2012) The Sebia assay for the measurement of HbA1c is a National Glycohemoglobin Standardization Program (NGSP) certified method. Blood BLOOD SPECIMEN / Unknown Lab Venipuncture / Unknown 06/06/2022 3:07 AM COMMERCIAL MANAGER 06/06/2022 3:28 AM [facility] Ama Gonzalez MD LAB - CHEMISTRY ORDERABLES [facility] [address] [place] [address], [facility] [phone] from Last 3 Months or Most Recently Relevant to Health Maintenance Advance Directives * Full Code (Latest Code Status on File) Date Activated Date Inactivated Comments 06/20/2022 6:09 PM 06/23/2022 5:59 PM * Full Code Date Activated Date Inactivated Comments 06/04/2022 1:16 PM 06/08/2022 11:04 PM * Full Code Date Activated Date Inactivated Comments 02/15/2022 5:44 AM 02/19/2022 3:38 PM Care Teams Help Desk Internship Relationship Specialty Start Date End Date Karrie Phillips MD [address] [place] [address] PCP - General 03/13/22
--- OUTSIDE RECORDS SUMMARY | 2024-04-11 13:16 | XMS_ITS | Encounter Summary ---
Author Organization [facility] Address [address] [place] [address] Care Team Providers Care Perl Software Engineer Name Role Phone Karrie Phillips MD Primary Care Provider [phone] Encounter Details Date Type Department Care Team (Late st Contact Info) Description 09/04/2022 Orders Only [facility] [address] [place] [address], [place] [address] Deon Taylor MD [address] [place] [address] [phone] S/P cervical spinal fusion Social History Tobacco [...] and heating? Not hard at all 06/04/2022 [facility] [place] of Occupat ional Health - Occupational Stress [...] st Contact Info) Description 06/02/2024 1:45 PM SCREWDOWN OPERATOR Office Visit [facility] Orthoped[facility] [address] [place] [address] Deon Taylor MD [address] [place] [address] documented as of this encounter Results * XR CERVICAL SPINE 2 OR 3VW (09/04/2022 2:09 PM CDT) Anatomical Region Laterality Modality Spine Radiographic Vivian ging 09/04/2022 2:11 PM CDT Narrative 09/04/2022 3:15 PM CDT PROCEDURE: ??XR CERVICAL SPINE 2 OR 3VW, DATE/TIME OF EXAM: ??09/04/2022 2:09 PM, LOCATION ??[facility] INDICATION: Z98.1: S/P cervical spinal fusion ADDITIONAL [...] normal. Report dictated by Jose Kohli MD (residential care facility manager). I, Tony Hansen MD have personally reviewed and interpreted this examination/study. > Interpreting Provider: Tony Hansen MD on 09/04/2022 3:15 PM Procedure Note Tony Hansen MD - 09/04/2022 PROCEDURE: XR CERVICAL SPINE 2 OR 3VW, DATE/TIME OF EXAM: 32:09 PM, LOCATION [facility] INDICATION: Z98.1: S/P cervical spinal fusion ADDITIONAL [...] normal. Report dictated by Jose Kohli MD (residential care facility manager). I, Tony Hansen MD have personally reviewed and interpreted this examination/study. > Interpreting Provider: Tony Hansen MD on 09/04/2022 3:15PM Deon Taylor MD DIAGNOSTIC IMAGING O RDERABLES documented in this encounter Visit Diagnoses Diagnosis S/P cervical spinal fusion- Primary Arthrodesis status S/P cervical spinal fusion Arthrodesis status documented in this encounter Care Teams Perl Software Engineer Relationship Specialty Start Date End Date Karrie Phillips MD [address] [place] [address] PCP - General 03/13/22 documented as of this encounter
--- OUTSIDE RECORDS SUMMARY | 2024-04-11 13:16 | XMS_ITS | Encounter Summary ---
Author Organization [facility] Address [address] [facility] [place] [address] Care Team Providers Care Derrick Car Operator Name Role Phone Karrie Phillips MD Primary Care Provider [phone] Reason for Visit * Reason Comments Surgical Follow-up Encounter Details Date Type Department Care Team (Late st Contact Info) Description 07/18/2022 10:00 AM CDT Office Visit [facility] [address] [place] [address], [place] [address] Deon Taylor MD [address] [place] [address] [phone] S/P cervical spinal fusion (Primary Dx); Status [...] heating? Not hard at all 06/04/2022 [facility] [place] of Occupat ional Health - Occupational Stress [...] place to sleep or slept in a long term (including now)? No 06/04/2022 Sex and Gender [...] Avendaño RN at (previously ) or through [facility] if you have any further questions or concerns. [facility] Orthopaedic office contact information: [facility] Medicine (at [facility]) [address] [place] [address] [place] [address] [facility] [address] [place] [address], [place] [address] July 18, 2022 To Whom It May Concern: Please use this letter to document that Kandace Cole, : 1950, was in to see Deon Taylor MD on 07/18/2022. Thank you. Sincerely, Deon Taylor MD [facility] 1L documented in this encounter [...] deltoids biceps triceps wrist extensors wrist flexors director television strength interosseous muscles as well as hip [...] st Contact Info) Description 06/02/2024 1:45 PM NUCLEAR ENGINEER Office Visit [facility] [address] [place] [address], [place] [address] Deon Taylor MD [address] [place] [address] documented as of this encounter Results * [...] surgery documented in this encounter Care Teams Derrick Car Operator Relationship Specialty Start Date End Date Karrie Phillips MD [address] [place] [address] PCP - General 03/13/22 documented as of this encounter
--- OUTSIDE RECORDS SUMMARY | 2024-04-11 13:16 | XMS_ITS | Encounter Summary ---
Author Organization [facility] Address [address] [facility] [place] [address] Care Team Providers Care Tunnel Mucker Name Role Phone Karrie Phillips MD Primary Care Provider [phone] Encounter Details Date Type Department Care Team (Late st Contact Info) Description 07/18/2022 10:46 AM CDT - 07/18/2022 11:00 AM CDT Hospital Encounter [facility] DIAGNOSTIC RAD [facility] 1L [address] [facility] [phone] L[address], DRIVE THRU ORDER TAKER-INDUSTRIAL CAFETERIA MANAGER [address] [facility] [place] [address] Discharge Disposition: Home or Self Care Social [...] and heating? Not hard at all 06/04/2022 [facility] [place] of Occupat ional Health - Occupational Stress [...] mouth every evening 06/08/2022 saline nasal spray ([place]; Baby [place]) 0.65 % nasal spray [place] 1 (one) spray into each nostril as needed for Dry Nose 15 mL 02/19/2022 vitamin D3 (Cholecalciferol) 10 MCG (400 UNIT) tablet Take 2 (two) tablets by mouth once daily 06/09/2022 documented as of this encounter Plan of Treatment Upcoming Encounters Date Type Department Care Team (Late st Contact Info) Description 06/02/2024 1:45 PM ORAL PATHOLOGIST Office Visit [facility]ics [facility] [place] [address] Deon Taylor MD [address] [place] [address] documented as of this encounter Procedures Procedure [...] MD on 07/18/2022 11:[address] THRU ORDER TAKER-INDUSTRIAL CAFETERIA MANAGER DIAGNOSTIC IMAG ING ORDERABLES documented in this encounter Visit Diagnoses Not on filedocumented in this encounter Care Teams Tunnel Mucker Relationship Specialty Start Date End Date Karrie Phillips MD [address] [place] [address] PCP - General 03/13/22 documented as of this encounter
--- OUTSIDE RECORDS SUMMARY | 2024-04-11 13:16 | XMS_ITS | Encounter Summary ---
Author Organization [facility] Address [address] [place] [address] Care Team Providers Care Stenotypist Name Role Phone Karrie Phillips MD Primary Care Provider [phone] Reason for Visit * Reason Comments Pain Neck * Consult, Test & Treat (Routine) - Closed Specialty Diagnoses / Procedures Referred By Contac t Referred To Contact Orthopedic Surgery / Orthopedics Selfreferral, Patient Deon Taylor MD [address] [place] [address] Referral ID Status Reason Start Date Expiration Date Visits Re quested Visits Authorized [id number] Closed 09/04/2022 09/04/2023 1 1 Encounter Details Date Type Department Care Team (Late st Contact Info) Description 09/04/2022 2:00 PM CDT Office Visit [facility] [address] [place] [address], [place] [address] Deon Taylor MD [address] [place] [address] S/P cervical spinal fusion (Primary Dx) [...] and heating? Not hard at all 06/04/2022 [facility] of Occupat ional [facility] - Occupational Stress Questionnaire Answer Date [...] 911. Please contact Anabell Avendaño RN at [phone] (previously [phone]) or through Rad if you have any further questions or concerns. [facility] Orthopaedic office contact information: [facility] (at [employer]) [address] [place] [address] [place] [address] [facility] [address] [place] [address], [place] [address] September 04, 2022 To Whom It May Concern: Please use this letter to document that Kandace Cole, : 1950, was in to see Deon Taylor MD on 09/04/2022. Thank you. Sincerely, Deon Taylor MD [facility] 1L documented in this encounter Progress Notes [...] deltoids biceps triceps wrist extensors wrist flexors client sales and service officer strength interosseous muscles as well as hip [...] 67 (moderate) This note was transcribed using Decisyon dictation software and may include inaccuracies in online marketing strategist which were unrecognized and not corrected. Please reach out to my clinical nurse, Anabell Avendaño RN [phone] for any questions or concerns. Deon Taylor MD documented in this encounter Plan of Treatment Upcoming Encounters Date Type Department Care Team (Late st Contact Info) Description 06/02/2024 1:45 PM BUILDING CONSTRUCTION IRONWORKER Office Visit [facility] [address] [place] [address], [place] [phone] Deon Taylor MD [address] [place] [address] documented as of this encounter Visit Diagnoses Diagnosis S/P cervical spinal fusion- Primary Arthrodesis status documented in this encounter Care Teams Stenotypist Relationship Specialty Start Date End Date Karrie Phillips MD [address] [place] [address] PCP - General 03/13/22 documented as of this encounter
--- OUTSIDE RECORDS SUMMARY | 2024-04-11 13:16 | XMS_ITS | Encounter Summary ---
Author Organization [facility] Address [address] [place] [address] Care Team Providers Care Muck Miner Name Role Phone Karrie Phillips MD Primary Care Provider [phone] Reason for Visit * Reason Comments VOMITING BLOOD Pt arrived via [employer] vehicle. Pt states she was encouraged to come here from her clinic appointment today d/t dark red emesis. Pt states she is having increased dizziness with movement and nausea. Pt states she is chilling. * Auth/Cert (Routine) Specialty Diagnoses / Procedures Referred By Everardo fried Referred To Contact Referral ID Status Reason Start Date Expiration Date Visits Re quested Visits Authorized [id number] 1 1 Encounter Details Date Type Department Care Team (Late st Contact Info) Description 06/21/2022 4:40 PM CDT - 06/21/2022 5:28 PM CDT Surgery [facility] ENDOSCOPY [address] [place] [address] Carmen Morales MD [address] [place] [address] ESOPHAGOGASTRODUODENOSCOPY (EGD) DIAGNOSTIC Surgery Details Date/Time Status Location OR Service Patient Class Case Class Case Type Trauma Case? 06/21/2022 4:40 PM Posted [facility] Endoscopy ENDO 4 Gastroenterology Inpatient Urgent < [...] and heating? Not hard at all 06/04/2022 [facility] - [facility] Stress [...] place to sleep or slept in a skilled nursing (including now)? No 06/04/2022 Sex and Gender [...] Hospital Discharge Summary Patient ID: Kandace Cole [id number] 72 year old 1950 Admit date: 06/20/2022 [...] Esophagus, chronic hyponatremia, MDD that presented to [facility] on 06/20 from her follow up appointment with her spine surgeon for staple removal with rapid onset of 1 day of 10-20 episodes of vomiting and noted some coffee ground emesis at home. No prior previous reported episodes. On arrival to [facility], she was slightly hypertensive, remaining VSS. Labs [...] spine. Report dictated by Yasir Pierre MD (manager of radiology). Kamila Narvaez MD have personally reviewed and [...] etiology. > Dictated by Sherlyn Hopkins DO (manager of radiology). Chaim Narvaez have personally reviewed and interpreted [...] 0.65 % nasal spray Commonly known as: Bee; Baby [place] 1 (one) spray into each nostril as needed for Dry Nose vitamin D3 10 MCG (400 UNIT) tablet Commonly known as: Cholecalciferol Take 2 (two) tablets by mouth once daily Where to Get Your Medications These medications were sent to [id number] - [address] [facility] [address] [phone] [facility], [facility] [address] ?? ondansetron (disintegrating) 4 MG tablet Follow-up Information Karrie Phillips MD . Specialty: Family Medicine Contact information: [facility] [place] [id number] Follow up with provider . Discharge Instructions [...] care provider. If you need to call [facility] for any reason, you may reach us at [phone] and dial 0 for the gritting machine operator. If you have any questions about your medications, please be sure to ask the pharmacy when you sisal picker your prescription. You may also call [...] the nearest emergency room or call EMS (751). It is essential that you keep all of your follow-up appointments and go to your doctors appointments as scheduled. If a follow-up with your primary care provider has not been scheduled, you need to schedule an appointment tofollow-up on your hospitalization. If there is a conflict, please call the clinic ahead of time and reschedule the appointment. Thanks! Internal Medicine Department [facility] [address] [place] [address] Signed: Anabell Hernandez PA-C 06/23/2022 Time spent [...] care provider. If you need to call [facility] for any reason, you may reach us at [phone] and dial 0 for the gritting machine operator. If you have any questions about your medications, please be sure to ask the pharmacy when you sisal picker your prescription. You may also call [...] reschedule the appointment. Thanks! Internal Medicine Department [address] [address] documented in this encounter Medications at Time [...] mouth every evening 06/08/2022 saline nasal spray (Bee; Baby Dyersburg) 0.65 % nasal spray [place] 1 (one) spray into each nostril as [...] Arciniega, OT - 06/22/2022 3:35 PM CDT [facility] Department of Physical Medicine & Rehabilitation Progress Note Patient: Kandace Cole [facility] Record Number: [id number] Date of : 1950 Age: [age] year old Per PT, the patient is independent with ADLs and functional mobility, no skilled OT indicated. D/C OT. * Ange Whitman, PT - 06/22/2022 2:55 PM CDT [facility] Physical Medicine and Rehabilitation Physical Therapy Initial Evaluation Note Patient: Kandace Cole [facility] Record Number: [id number] Date of : 1950 Age: [age] year [...] as Tolerated Spine Precautions: Yes Spine Precautions: [place] DIAGNOSIS: Patient Active Problem List: Degeneration of [...] disease, without long-term current use of insulin ([facility]/HCC) Temporomandibular joint disorder Systemic sclerosis (CMS/HCC) Sprain [...] to have w/c after neck surgery. riaz.) Repairer Art Objects issued to pt. Pt has bed rails. [...] activity this date. Bed Mobility: Rolling: Modified [place] Supine to Sit: Modified Aurora with HOB in semi-fowlers position Sit to Supine: Modified Aurora Pt has bed wedge at home to elevate head. Transfers: Sit to Stand: Complete [place] Stand to Sit: Complete Aurora Bed to Chair: Complete [place] Type of Transfer: Stand Pivot Transfer Transfer Device: Gait belt;Walker-2 Wheeled Gait: Weight Bearing Status: (WBAT x4 in aspen collar) Distance Ambulated: 125 FEET Ambulation: Assistive Device: Gait Belt;Walker-2 Wheeled Ambulation: Level of Assistance: Modified Aurora Ambulation: Gait Deviations: (normal) Balance: Balance Scales/Tests [...] neck surgery. Equipment Issued: gait belt and varnisher plasticoater Plan: Plan: Discontinue IP PT If patient [...] spine. Report dictated by Yasir Pierre MD (manager of radiology). Kamila Narvaez MD have personally reviewed and [...] etiology. > Dictated by Sherlyn Hopkins DO (manager of radiology). Chaim Narvaezs have personally reviewed and interpreted [...] GI in origin and differential includes sandro garenr tear, gastric ulcer / gastritis, duodenal ulcer, [...] questions/concerns. Naif Tenorio MD Internal Medicine, PGY-1 [facility] Associated attestation - Ike Mcpherson MD - 06/22/2022 10:15 AM CDT I have personally seen and examined this patient. I agree with the boiler house operator's findings, assessment and plan as outlined. In [...] spine. Report dictated by Yasir Pierre MD (manager of radiology). Kamila Narvaez MD have personally reviewed and [...] etiology. > Dictated by Sherlyn Hopkins DO (manager of radiology). 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 Home when medically clear. Lives with: Other (Comment) (Grandson) Physical Limitations: None Requires Assistance With: None Preferred Pharmacy: [facility] - [address] [address] [address] [address] READMISSION RISK SCORE is 20* at 4:42 PM 06/21/2022. Pt LYNNETTE in procedure, chart reviewed. Family Support (name and phone): Extended Emergency Contact Information Primary Emergency Contact: BARBARA CISNEROS Mobile Relation: Brother Secondary Emergency Contact: Barbara Cisneros Address: [place], [place] Relation: Other Patient or field service representative requests care coordination reach out to family or caregiver listed above regarding discharge planning and at time of discharge? No Equipment at Home: Chair-Shower;Grab Bars;Cane-Small Base Quad;Walker-2 Wheeled;Walker-4 Wheeled with Seat Overnight Babysitter Referral: No Will continue to follow. For any questions or needs please contact: Rib Matcher And Fitter Name/Phone number: Krystle Guerrero RN [phone] * Ori Iyer PA-C - 06/21/2022 10:19 [...] spine. Report dictated by Yasir Pierre MD (manager of radiology). Kamila Narvaez MD have personally reviewed and [...] etiology. > Dictated by Sherlyn Hopkins DO (manager of radiology). IChaim have personally reviewed and interpreted this [...] continue amlodipine 5 mg daily (started at [facility]) T2DM Hypoglycemia likely 2/2 NPO vs recent [...] Feel free to text page me through [employer] Date of service: 06/21/2022 Attending Physician: Abeba Will DO * Leobardo Chisholm RN - 06/21/2022 12:24 AM CDT RN called [employer] for infusion channel. * Leobardo Chisholm RN - 06/20/2022 11:21 PM CDT RN called [employer] for SCD pump and Alaris brain w/ channel. * Leobardo Chisholm RN - 06/20/2022 11:00 PM CDT [facility] staff brought SCD pump and [facility] Brain to bedside. [facility] stated she would be back to [...] 72 year old, female : 1950 CSN: [id number] Primary Care Physician: Karrie Phillips MD, MD [...] results for input(s): PTT in the last 34307 hours. Cultures No results found for this or any previous visit (from the past 248 hour(s)). Physical Exam General: Awake, alert, follows commands, ill appearing Neck: - C-collar/[place] J: Present - Dressing: clean and dry [...] closed fractures of facial bone, initial encounter ([facility]) Abdominal pain Abnormal serum creatinine level Anemia Heredia's esophagus Cardiomegaly Chronic kidney disease Chronic obstructive pulmonary disease ([facility]) Chronic depression Dyspnea on exertion Benign essential hypertension Glaucoma Hyperkalemia Hyposmolality Hyperthyroidism Hypothyroidism Intractable chronic migraine without aura Iron deficiency anemia Leukocytosis Macular degeneration Migraine Ulnar neuropathy Type 2 diabetes mellitus ([facility]) Type 2 diabetes mellitus with stage 3 chronic kidney disease, without long-term current use of insulin ([facility]) Temporomandibular joint disorder Systemic sclerosis ([facility]) Sprain of ankle Sciatica Recurrent major depression in remission ([facility]) Raynaud's disease Primary fibromyalgia syndrome Polyp of colon Perineal pain Paronychia of toe of right foot Onychomycosis of toenail Nonexudative 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 Nausea Multiple bruises Mixed hyperlipidemia Mixed collagen vascular disease ([facility]) Shortness of breath Abdominal pain, left upper [...] 06/08/22 Tammi Perez MD saline nasal spray (Bee; Baby [place]) 0.65 % nasal spray [place] 1 (one) spray into each nostril as [...] spine. Report dictated by Yasir Pierre MD (manager of radiology). I, Kamila Barber MD have personally reviewed [...] most recent endoscopic evaluation was 12/2022 in [place]. States at that time there was continued [...] mouth every evening ??? saline nasal spray (Bee; Baby [place]) 0.65 % nasal spray [place] 1 (one) spray into each nostril as [...] spine. Report dictated by Yasir Pierre MD (manager of radiology). Kamila Narvaez MD have personally reviewed and [...] etiology. > Dictated by Sherlyn Hopkins DO (manager of radiology). IChaim have personally reviewed and interpreted this examination/study. > Interpreting Provider: Chaim Martins on 06/20/2022 10:47 PM Procedures: Prior endoscopies notable for remote EGD hx of Heredia's esophagus in 2019. States most recent endoscopic evaluation was 12/2022 in [place]. States at that time there was continued [...] 162, trans % sat 10, TIBC 203, [id number], folate 9.4, B12 382. No s/s of [...] AM cortisol to evaluate adrenal function, no chcf steroid use per history.TSH from 02/16/2022 wnl. [...] questions. Naif Tenorio MD Internal Medicine, PGY-1 [facility] Associated attestation - Ike Mcpherson MD - 06/21/2022 11:56 AM CDT I have personally seen and examined this patient. I agree with the boiler house operator's findings, assessment and plan as outlined. In [...] - 06/20/2022 2:45 PM CDT Kandace Cole [id number] [facility] EMERGENCY DEPARTMENT History Chief Complaint Patient presents [...] mouth every evening ??? saline nasal spray (Bee; Baby [place]) 0.65 % nasal spray [place] 1 (one) spray into each nostril as [...] recent spinal surgery vs volume depleted vs OR - pantoprazole 40mg given - ondansetron 4mg [...] injection 4 mg Associated attestation - Adolph cMkinney MD - 06/27/2022 7:00 AM CDT 06/27/2022 06:59 For this patient encounter, I reviewed the medical student documentation, treatment plan, and medical decision making; and I had weva-[id number] time with this patient. I have conducted [...] pain. VSS. DDx: GI bleed, gastritis, gastroenteritis, OR, cardiac arrhythmia, electrolyte derangement; less concern for [...] DATE/TIME OF EXAM: 06/20/2022 3:13 PM, LOCATION [facility] INDICATION: R42: Dizziness R06.02: Shortness of [...] spine. Report dictated by Yasir Pierre MD (manager of radiology). I, Kamila Barber MD have personally reviewed and interpreted this examination/study. > Interpreting Provider: Kamila Barber MD on 06/20/2022 4:25 PM XR CHEST 2VW Final Result PROCEDURE: XR CHEST 2VW, DATE/TIME OF EXAM: 06/20/2022 3:03 PM, LOCATION [facility] INDICATION: R06.02: Shortness of breath ADDITIONAL [...] heads. Report dictated by Yasir Pierre MD (manager of radiology). I, Haroldo Ball MD have personally reviewed [...] mg (40 mg Intravenous $ Given 06/20/22 3154) Procedures None ED COURSE Patient seen and [...] and medical decision making; and I had ohsm-wv-qokm time with this patient. I have conducted [...] mouth every evening ??? 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 - Orthopedics [address] [place] [address], [facility] [place] [address] Deon Taylor MD [address] [place] [address] Scheduled Orders Name Type Priority Associated Diagnoses [...] 06/21/2022 4:40 PM CDT Coffee ground emesis PA ESOPHAGEAL CAPSULE ENDOSCOPY 06/21/2022 4:37 PM CDT Coffee ground emesis PA ED EGD FLEX TRANSORAL DX 06/21/2022 4:37 [...] CBC W/O DIFFERENTIAL (06/23/2022 3:47 AM CDT) [facility] WBC 7.7 3.5 - 10.5 10? 3 [...] 0 /100 WBC 06/23/2022 4:17 AM CDT [facility] Blood BLOOD SPECIMEN / Unknown Lab Venipuncture / Unknown 06/23/2022 3:47 AM CDT 06/23/2022 4:10 AM CDT Ori Iyer PA-C LAB - HEMATOLOGY OR DERABLES Performing Organization Address City/[facility]/ZIP Co de Phone Number [address] [address], [facility] [phone] * MAGNESIUM BLOOD (06/23/2022 3:06 AM CDT) Magnesium 2.3 1.6 - 2.6 mg/dL 06/23/2022 4:41 AM CDT [facility] Blood BLOOD SPECIMEN / Unknown Lab Venipuncture / Unknown 06/23/2022 3:06 AM CDT 06/23/2022 4:03 AM CDT Anabell Hernandez PA-C LAB - CHEMISTRY ORD ERABLES Performing Organization Address City/[facility]/ZIP Co de Phone Number [address] [address], [facility] [phone] * (ABNORMAL) BASIC METABOLIC PANEL (CALCIUM TOTAL) (06/23/2022 3:06 AM CDT) BUN 10 7 - 26 mg/dL 06/23/2022 4:38 AM CDT [facility] Creatinine 1.09(H) 0.56 - 0.96 mg/dL 06/23/2022 4:38 AM T [facility] Sodium 131(L) 136 - 145 mmol/L 06/23/2022 4:38 AM T [facility] Potassium 4.2 3.5 - 4.5 mmol/L 06/23/2022 4:38 AM [facility] Chloride 100 98 - 107 mmol/L 06/23/2022 4:38 AM T [facility] CO2 22 22 - 29 mmol/L 06/23/2022 4:38 AM [facility] Glucose 111 70 - 115 mg/dL 06/23/2022 4:38 AM [facility] Calcium 8.2(L) 8.4 - 10.2 mg/dL 06/23/2022 4:38 AM [facility] Anion Gap 13 8 - 18 06/23/2022 4:38 AM [facility] BUN/Creatinine Ratio 9 7 - 23 06/23/2022 4:38 AM [facility] Osmolality Calculated 272 270 - 300 mOsm/kg 06/23/2022 4:38 AM [facility] eGFR by CKD-EPI 54(L) >=90 mL/min/1.7 3 m2 06/23/2022 4:38 AM [facility] Blood BLOOD SPECIMEN / Unknown Lab Venipuncture / Unknown 06/23/2022 3:06 AM CDT 06/23/2022 4:03 AM CDT Anabell Hernandez PA-C LAB - CHEMISTRY ORD ERABLES [address] [address], [place] [phone] * GLUCOSE - POINT OF CARE (06/22/2022 4:11 PM CDT) Glucose WB/POC 105 70 - 115 mg/dL 06/22/2022 4:12 PM T [facility] Specimen Type Arterial 06/22/2022 4:12 PM T [facility] Blood BLOOD SPECIMEN / Unknown 06/22/2022 4:11 PM CDT 06/22/2022 4:12 PM CDT Abeba Will DO LAB - POINT OF CARE ORDERABLES [address] [address], [place] [phone] * (ABNORMAL) GLUCOSE - POINT OF CARE (06/22/2022 11:18 AM CDT) Glucose WB/POC 180(H) 70 - 115 mg/dL 06/22/2022 11:19 AM [facility] Specimen Type Cap Fingerstick 2022 11:19 AM [facility] Blood BLOOD SPECIMEN / Unknown 06/22/2022 11:18 AM CDT 06/22/2022 11:19 AM CDT Abeba Will DO LAB - POINT OF CARE ORDERABLES Performing Organization Address City/State/[facility] Co de Phone Number [facility] [address] [place] [address], [facility] [phone] * (ABNORMAL) CBC W/O DIFFERENTIAL (06/22/2022 2:34 [...] - 12.9 fL 06/22/2022 3:11 AM CDT [facility] nRBC Absolute 0.00 0 10? 3 /uL 06/22/2022 3:11 AM CDT [facility] nRBC Auto 0.0 0 /100 WBC 06/22/2022 3:11 AM CDT [facility] Blood BLOOD SPECIMEN / Unknown Lab Venipuncture / Unknown 06/22/2022 2:34 AM CDT 06/22/2022 3:01 AM CDT Ori Iyer PA-C LAB - HEMATOLOGY OR DERABLES [address] [address], [facility] [phone] * (ABNORMAL) MAGNESIUM BLOOD (06/22/2022 2:34 AM CDT) Magnesium 1.5(L) 1.6 - 2.6 mg/dL 06/22/2022 3:29 AM CDT [facility] Blood BLOOD SPECIMEN / Unknown Lab Venipuncture / Unknown 06/22/2022 2:34 AM CDT 06/22/2022 3:02 AM CDT Ori Iyer PA-C LAB - CHEMISTRY ORD ERABLES Performing Organization Address City/[facility]/ZIP Co de Phone Number [address] [address], [place] [phone] * (ABNORMAL) RENAL FUNCTION PANEL (06/22/2022 2:34 AM CDT) BUN 13 7 - 26 mg/dL 06/22/2022 3:29 AM CDT [facility] Creatinine 1.07(H) 0.56 - 0.96 mg/dL 06/22/2022 3:29 AM CDT [facility] Sodium 132(L) 136 - 145 mmol/L 06/22/2022 3:29 AM CDT [facility] Potassium 3.8 3.5 - 4.5 mmol/L 06/22/2022 3:29 AM [facility] Chloride 99 98 - 107 mmol/L 06/22/2022 3:29 AM [facility] CO2 25 22 [...] [facility] BUN/Creatinine Ratio 12 7 - 23 06/22/2022 3:29 AM [facility] Osmolality Calculated 276 270 - 300 mOsm/kg 06/22/2022 3:29 AM [facility] eGFR by CKD-EPI 55(L) >=90 mL/min/1.7 3 m2 06/22/2022 3:29 AM [facility] Blood BLOOD SPECIMEN / Unknown Lab Venipuncture / Unknown 06/22/2022 2:34 AM CDT 06/22/2022 3:02 AM CDT Ori Iyer PA-C LAB - CHEMISTRY ORD ERABLES Performing Organization Address City/State/[facility] Co de Phone Number [facility] [address] [place] [address], [facility] [phone] * CORTISOL BLOOD AM (06/22/2022 2:34 AM CDT) Cortisol AM 14.3 3.7 - 19.4 ug/dL 06/22/2022 3:49 AM [facility] Blood BLOOD SPECIMEN / Unknown Lab Venipuncture / Unknown 06/22/2022 2:34 AM CDT 06/22/2022 3:02 AM CDT Narrative [facility] - 06/22/2022 3:49 AM CDT Normal cortisol levels are generally highest in the morning hours and lowest from late evening through the molding press operator 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 ??The PM measurements of cortisol run approximately one-half to one-third of the AM values. Ori Iyer PA-C LAB - CHEMISTRY ORD ERABLES Performing Organization Address [facility] Co de Phone Number [facility] [address] [place] [address], [place] [phone] * GLUCOSE - POINT OF CARE (06/21/2022 5:10 PM CDT) Glucose WB/POC 103 70 - 115 mg/dL 06/21/2022 5:14 PM CDT [facility] Specimen Type Cap Fingerstick 2022 5:14 PM CDT [facility] Blood BLOOD SPECIMEN / Unknown 06/21/2022 5:10 PM CDT 06/21/2022 5:14 PM CDT Abeba Will DO LAB - POINT OF CARE ORDERABLES Performing Organization Address [facility] Co de Phone Number [facility] [address] [place] [address], [place] [phone] * PATHOLOGY TISSUE (06/21/2022 4:40 PM CDT) Case Report Surgical Pathology Report ? Case: [id number] ? Authorizing Provider: ??Carmen Morales MD ? Collected: ? 06/21/2022 04:40 PM ? Ordering Location: ? [facility] ?Received: ?06/22/2022 08:59 AM ? Pathologist: ? Hansa Gusman MD ? Specimen: ?Small Bowel, small bowel biopsy r/o celiac ? 06/25/2022 2:27 PM [facility] Final Diagnosis Small intestine, small bowel, biopsy (A): - No histopathologic abnormality - Intact villous and crypt architecture without increased intraepithelial lymphocytes 06/25/2022 2:27 PM [facility] Microscopic Description and Comment Microscopic examination substantiates the final diagnosis. 06/25/2022 2:27 PM [facility] Clinical History The patient is a 72-year-old woman presented with coffee-ground emesis who underwent upper GI endoscopy. 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 Duodenal bulb erythema, biopsied for evaluation of celiac disease. 06/25/2022 2:27 PM [facility] Gross Description The requisition and specimen(s) are identified with the patient's name Kandace Cole. Received in formalin, specimen A , are 5 pink-freeman tissues, 0.3-0.9 cm in greatest dimension and 2.3 x 0.3 x 0.2 cm in aggregate, submitted in toto in cassette A1. DF 06/25/2022 2:27 PM [facility] Disclaimer The performance characteristics of all immunohistochemical and indirect immunofluorescence stains (if any) cited in this report were determined by the Histopathology Laboratory of [facility]. Some of these tests were developed [...] attending (teaching) pathologist. 06/25/2022 2:27 PM CDT [facility] Embedded Images 06/25/2022 2:27 PM CDT [facility] Resection without Tumor SMALL BOWEL RESECTION SPECIMEN / Unknown 06/21/2022 4:40 PM CDT 06/22/2022 8:59 AM CDT Comment:Pre-op diagnosis: Coffee ground emesis Carmen Morales MD LAB - PATHOLOGY/CYTO LOGY ORDERABLES [facility] [address] [facility] [place] [address], [facility] [phone] * EGD (06/21/2022 4:24 PM CDT) Report [...] Procedure Code(s): ? --- Professional --- ? 22524, Esophagogastroduode noscopy, flexible, transoral; with biopsy, ? single or multiple Diagnosis Code(s): ?--- Professional --- ?K22.70, Heredia's esophagus without dysplasia ?K92.0, Hematemesis CPT copyright 2019 [employer]. All rights reserved. The codes documented in this report are preliminary and upon security support analyst review may be revised to meet current compliance requirements. Carmen Morales, 06/21/2022 5:01:11 PM Note Initiated On: 06/21/2022 4:24 PM Number of Addenda: 0 ? [facility] ? [address] [place] [address] [facility] 06/21/2022 4:24 PM CDT Abeba Will DO GI PROCEDURE ORDERAB LES Performing Organization Address City/[facility]/ZIP Co de Phone Number [facility] * CARDIAC EKG ORDER (06/21/2022 3:29 PM CDT) Narrative 06/21/2022 3:29 PM CDT Ordered by an unspecified provider. Scanned Document CARDIAC SERVICES ORD ERABLES * (ABNORMAL) GLUCOSE - POINT OF CARE (06/21/2022 2:59 PM CDT) Glucose WB/POC 143(H) 70 - 115 mg/dL 06/21/2022 3:04 PM CDT [facility] Specimen Type Cap Fingerstick 2022 3:04 PM CDT [facility] Blood BLOOD SPECIMEN / Unknown 06/21/2022 2:59 PM CDT 06/21/2022 3:04 PM CDT Abeba Will DO LAB - POINT OF CARE ORDERABLES Performing Organization Address [facility] Co de Phone Number [facility] [address] [place] [address], [facility] [phone] * (ABNORMAL) GLUCOSE - POINT OF CARE (06/21/2022 2:00 PM CDT) Pathologist [facility] Glucose WB/POC 47(LL) 70 - 115 mg/dL 06/21/2022 2:04 PM T [facility] Specimen Type Cap Fingerstick 2022 2:04 PM T [facility] Blood BLOOD SPECIMEN / Unknown 06/21/2022 2:00 PM CDT 06/21/2022 2:04 PM CDT Abeba Will DO LAB - POINT OF CARE ORDERABLES [facility] [address] [place] [address], [facility] [phone] * (ABNORMAL) CBC W AUTO DIFFERENTIAL (06/21/2022 2:03 AM CDT) [facility] WBC 8.0 3.5 - 10.5 10? 3 [...] Georges MD LAB - HEMATOLOGY ORD ERABLES [facility] [address] [place] [address], [facility] [phone] * (ABNORMAL) COMPREHENSIVE METABOLIC PANEL (06/21/2022 2:03 [...] 06/21/2022 2:03 AM CDT 06/21/2022 2:39 AM [facility] Deepa Georges MD LAB - CHEMISTRY [facility]LO QU[facility] Organization Address City/State/ZIP Co de Phone Number [address] [address], [facility] [phone] * (ABNORMAL) URINALYSIS REFLEX TO MICROSCOPIC NO CULTURE (06/21/2022 12:50 AM [facility]) Color UA Yellow Straw, Yellow 06/21/2022 1:04 AM [facility] Clarity UA Clear Clear 06/21/2022 1:04 AM [facility] Specific [place] UA 1.048(H) 1.005 - 1.030 06/21/2022 1:04 [...] Esterase Trace(A) Negative 06/21/2022 1:04 AM CDT [facility] Urobilinogen UA Negative Negative mg/dL 06/21/2022 1:04 AM CDT [facility] RBC UA 0-2 None Seen, 0-2, 3-5 /HPF 06/21/2022 1:04 AM CDT [facility] WBC UA 0-5 None Seen, 0-5 /HPF 06/21/2022 1:04 AM CDT [facility] Squamous Epithelial Cells UA 0-2 None Seen, 0-2, 3-5 /HPF 06/21/2022 1:04 AM CDT [facility] Urine URINE SPECIMEN OBTAINED BY CLEAN CATCH PROCEDURE / Unknown Collection / Unknown 06/21/2022 12:50 AM CDT 06/21/2022 12:57 AM CDT Narrative [facility] - 06/21/2022 1:04 AM CDT Sima Kaufman PA-C LAB - URINALYSIS OR DERABLES [address] [address], [place] [phone] * (ABNORMAL) HEMOGLOBIN (06/20/2022 10:18 PM CDT) Pathologist [facility] Hemoglobin 8.5(L) 12.0 - 15.6 g/dL 06/20/2022 10:42 PM CDT [facility] Blood BLOOD SPECIMEN / Unknown Lab Venipuncture / Unknown 06/20/2022 10:18 PM CDT 06/20/2022 10:39 PM CDT Deepa Georges MD LAB - HEMATOLOGY ORD ERABLES [address] [address], [place] [phone] * B-TYPE NATRIURETIC PEPTIDE (06/20/2022 10:18 PM CDT) Pathologist [facility] BNP 99 <100 pg/mL 06/20/2022 11:17 PM [facility] Comment: A decision threshold of 100 pg/mL [...] Georges MD LAB - CHEMISTRY CHELO QUIGLEY [facility] [address] [place] [address], [facility] [phone] * CT ANGIO ABDOMEN PELVIS (06/20/2022 5:05 [...] etiology. > Dictated by Sherlyn Hopkins DO (manager of radiology). IChaim have personally reviewed and interpreted this examination/study. > Interpreting Provider: Chaim Martins on 06/20/2022 10:47 PM Narrative 06/20/2022 10:47 PM CDT PROCEDURE: ??CT ANGIO ABDOMEN PELVIS, DATE/TIME OF EXAM: ??06/20/2022 5:05 PM, LOCATION ??[facility] INDICATION: R10.12: Abdominal pain, left upper [...] PELVIS, DATE/TIME OF EXAM: 06/20/2022 5:05PM, LOCATION [facility] INDICATION: R10.12: Abdominal pain, left upper [...] etiology. > Dictated by Sherlyn Hopkins DO (manager of radiology). I, Chaim Martins have personally reviewed and [...] spine. Report dictated by Yasir Pierre MD (manager of radiology). I, Kamila Barber MD have personally reviewed and interpreted this examination/study. > Interpreting Provider: Kamila Barber MD on 06/20/2022 4:25 PM Narrative 06/20/2022 4:25 PM CDT PROCEDURE: ??XR CERVICAL SPINE 2 OR 3VW, DATE/TIME OF EXAM: ??06/20/2022 3:13 PM, LOCATION ??[facility] INDICATION: R42: Dizziness R06.02: Shortness of [...] 3VW, DATE/TIME OF EXAM: 33:13 PM, LOCATION [facility] INDICATION: R42: Dizziness R06.02: Shortness of [...] spine. Report dictated by Yasir Pierre MD (manager of radiology). Kamila Narvaez MD have personally reviewed and interpreted this examination/study. > Interpreting Provider: Kamila Barber MD on 06/20/2022 4:25 PM Adolph Mckinney MD DIAGNOSTIC IMAGING ORDERABLES * XR CHEST 2VW (06/20/2022 3:02 PM CDT) Anatomical Region Laterality Modality Chest Radiographic Vivian ging 06/20/2022 3:13 PM CDT Narrative 06/20/2022 3:49 PM CDT PROCEDURE: ??XR CHEST 2VW, DATE/TIME OF EXAM: ??06/20/2022 3:03 PM, LOCATION [facility] INDICATION: R06.02: Shortness of breath ADDITIONAL [...] heads. Report dictated by Yasir Pierre MD (manager of radiology). Haroldo Narvaez MD have personally reviewed and interpreted this examination/study. > Interpreting Provider: Haroldo Ball MD on 06/20/2022 3:49 PM Procedure Note Haroldo Ball MD - 06/20/2022 PROCEDURE: XR CHEST 2VW, DATE/TIME OF EXAM: 06/20/2022 3:03 PM, LOCATION [facility] INDICATION: R06.02: Shortness of breath ADDITIONAL [...] heads. Report dictated by Yasir Pierre MD (manager of radiology). I, Haroldo Ball MD have personally reviewed and interpreted this examination/study. > Interpreting Provider: Haroldo Ball MD on 06/20/2022 3:49 PM Adolph Mckinney MD DIAGNOSTIC IMAGING ORDERABLES * TYPE + SCREEN PANEL (06/20/2022 2:05 PM CDT) Pathologist [facility] Antibody Screen NEG 2:53 PM CDT [facility] B[facility]OD [facility] LAB ABO Rh A POS 06/20/2022 2:53 PM CDT [facility] LAB Blood Bank BLOOD SPECIMEN / Unknown Venipuncture / Unknown 06/20/2022 2:05 PM CDT 06/20/2022 2:08 PM CDT Adolph Mckinney MD LAB - BLOOD BANK O RDERABLES [facility] LAB [address] [place] [address], [facility] [phone] * LACTIC ACID BLOOD (06/20/2022 2:05 PM CDT) [facility] Lactic Acid-Stat 1.1 <=2.0 mmol/L 06/20/2022 2:48 PM CDT [facility] Blood BLOOD SPECIMEN / Unknown Venipuncture / Unknown 06/20/2022 2:05 PM CDT 06/20/2022 2:23 PM CDT Adolph Mckinney MD LAB - CHEMISTRY OR DERABLES Performing Organization Address City/[facility]/ZIP Co de Phone Number [facility] [address] [address], [place] [phone] * LIPASE BLOOD (06/20/2022 2:05 PM CDT) [facility] Lipase 18 8 - 78 U/L 06/20/2022 2:50 PM CDT [facility] Blood BLOOD SPECIMEN / Unknown Venipuncture / Unknown 06/20/2022 2:05 PM CDT 06/20/2022 2:23 PM CDT Narrative [facility] - 06/20/2022 2:50 PM CDT Lipase results from the [employer] Alinity analyzer may not be comparable with other methodologies. Adolph Mckinney MD LAB - CHEMISTRY OR DERABLES [facility] [address] [place] [address], [facility] [phone] * PT-INR [facility] (06/20/2022 2:05 PM CDT) [facility] PT 13.4 12.1 - 14.8 Seconds 06/20/2022 2:48 PM CDT [facility] INR 1.0 See Comment 06/20/2022 2:48 PM CDT [facility] Comment:The suggested therap eutic range for standard coumadin (warfarin) therapy is an INR of 2.0-3.0. For high-risk patients (Mechanical Mitral Valve Prosthesis, etc.), the suggested prophylactic therapeutic range is an INR of 2.5-3.5. Blood BLOOD SPECIMEN / Unknown Venipuncture / Unknown 06/20/2022 2:05 PM CDT 06/20/2022 2:07 PM CDT Adolph Mckinney MD LAB - COAGULATION ORDERABLES [facility] [address] [place] [address], [facility] [phone] * (ABNORMAL) CBC W/O DIFFERENTIAL (06/20/2022 2:05 PM CDT) [facility] WBC 9.5 3.5 - 10.5 10? 3 /uL 06/20/2022 2:27 PM CDT [facility] RBC 3.07(L) 3.80 - 5.20 10? 6 /uL 06/20/2022 2:27 PM [facility] Hemoglobin 9.3(L) 12.0 - 15.6 g/dL 06/20/2022 2:27 PM [facility] Hematocrit 27.6(L) 35.0 - 45.0 % 06/20/2022 2:27 PM [facility] MCV 89.9 80.7 - 98.3 fL 06/20/2022 2:27 PM [facility] MCH 30.3 26.7 - 34.0 pg 06/20/2022 2:27 PM T [facility] MCHC 33.7 30.8 - 35.9 g/dL [...] Mckinney MD LAB - HEMATOLOGY O RDERABLES [facility] [address] [place] [address], [facility] [phone] * TROPONIN-I HIGH SENSITIVE REFLEX 1HOUR (06/20/2022 1:05 PM CDT) Troponin I High Sensitive 8 <=14 ng/L 06/20/2022 1:59 PM CDT [facility] Delta Troponin I HS 06/20/2022 1:59 PM CDT [facility] Comment:Delta value intentio anil not calculated. Baseline to 1 hour specimen collection interval exceeded. Blood BLOOD SPECIMEN / Unknown Venipuncture / Unknown 06/20/2022 1:05 PM CDT 06/20/2022 1:23 PM CDT Sima Kaufman PA-C LAB - CHEMISTRY ORD ERABLES Performing Organization Address [facility]/ZIP Co de Phone Number [address] [address], [place] [phone] * TROPONIN-I HIGH SENSITIVE BASELINE + 1HR (06/20/2022 9:49 AM CDT) Pathologist [facility] Troponin I High Sensitive 7 <=14 ng/L 06/20/2022 10:39 AM CDT [facility] Blood BLOOD SPECIMEN / Unknown Venipuncture / Unknown 06/20/2022 9:49 AM CDT 06/20/2022 9:55 AM CDT Sima Kaufman PA-C LAB - CHEMISTRY ORD ERABLES Performing Organization Address City/[facility]/ZIP Co de Phone Number [address] [address], [place] [phone] * (ABNORMAL) COMPREHENSIVE METABOLIC PANEL (06/20/2022 9:49 AM CDT) BUN 14 7 - 26 mg/dL 06/20/2022 10:32 AM CDT [facility] Creatinine 1.02(H) 0.56 - 0.96 mg/dL 06/20/2022 10:32 AM CDT [facility] Sodium 128(L) 136 - 145 mmol/L 06/20/2022 10:32 AM CDT [facility] Potassium 4.3 3.5 - 4.5 mmol/L 06/20/2022 10:32 AM T [facility] Chloride 93(L) 98 - 107 mmol/L 06/20/2022 10:32 AM [facility] CO2 26 22 - 29 mmol/L 06/20/2022 10:32 AM [facility] Glucose 91 70 - 115 mg/dL 06/20/2022 [...] 06/20/2022 9:49 AM T 06/20/2022 9:55 AM [facility] Sima Kaufman PA-C LAB - CHEMISTRY ORD ERABLES [facility] [address] [place] [address] [phone] * (ABNORMAL) CBC W AUTO DIFFERENTIAL (06/20/2022 [...] 20.0 - 43.0 % 06/20/2022 9:58 AM [facility] Monocytes % 6.6 5.0 - 13.0 % 06/20/2022 9:58 AM T [facility] Eosinophils % 1.1 0.0 - 6.0 % 06/20/2022 9:58 AM T [facility] Basophil % 0.6 0.0 - 2.0 % 06/20/2022 9:58 AM T [facility] Neutrophils Absolute 9.94(H) 1.60 - 7.00 10? 3 /uL 06/20/2022 9:58 AM T [facility] Lymphocyte Absolute 0.79(L) 1.10 - 3.90 10? 3 /uL 06/20/2022 9:58 AM [facility] Monocytes Absolute 0.77 0.26 - 1.07 10? 3 /uL 06/20/2022 9:58 AM [facility] Eosinophils Absolute 0.13 0.00 - 0.47 10? 3 /uL 06/20/2022 9:58 AM T [facility] Basophils Absolute 0.07 0.00 - 0.08 10? 3 /uL 06/20/2022 9:58 AM [facility] Immature Granulocytes % 0.4 0.0 - 1.0 % 06/20/2022 9:58 AM [facility] Immature Granulocytes Absolute 0.05 06/20/2022 9:58 AM [facility] Blood BLOOD SPECIMEN / Unknown Venipuncture / Unknown 06/20/2022 9:49 AM CDT 06/20/2022 9:54 AM CDT Sima Kaufman PA-C LAB - HEMATOLOGY OR DERABLES [facility] [address] [place] [address], [facility] [phone] * EKG 12-LEAD (06/20/2022 9:40 AM CDT) Ventricular Rate 88 BPM [facility] MUSE Atrial Rate 88 BPM [facility] MUSE P-R Interval 176 ms [facility] MUSE QRS Duration ms 70 ms [facility] MUSE Q-T Interval ms 348 ms [facility] QTC Calculation (Bezet) 421 ms [facility] Calculated P [place] 75 degrees [facility]USE Calculated R [place] 55 degrees [facility]USE Calculated T [place] 74 degrees [facility] Interpretation EKG NORMAL SINUS RHYTHM NORMAL ECG WHEN COMPARED WITH ECG OF 15-FEB-2022 00:55, VENT. RATE HAS INCREASED by 15 bpm Confirmed by MARIN KEARNS MD ([id number]) on 06/20/2022 1:46:36 PM [facility] MUSE 06/20/2022 9:40 AM CDT 06/20/2022 1:46 PM CDT Sima Kaufman PA-C ECG ORDERABLES [facility] SEBASTIAN documented in this encounter Visit Diagnoses [...] RN) 0839 ($ Given - Provider: Mark Anhtony Magana RN)[phone] ($ Given - Provider: Damian [...] Anthony Magana RN)[phone] (See Alternative - Provider: iTta Arvizu, RN) dextrose 10 % IV bolus(Linked [...] swallow. documented in this encounter Care Teams Muck Miner Relationship Specialty Start Date End Date Karrie Phillips MD [facility] [place] [address] PCP - General 03/13/22 documented as of this encounter
--- OUTSIDE RECORDS SUMMARY | 2024-04-11 13:16 | XMS_ITS | Encounter Summary ---
Author Organization [facility] Health Address [address] [facility] [place] [address] Care Team Providers Care Career Placement Services Counselor Name Role Phone Karrie Phillips MD Primary Care Provider [phone] Encounter Details Date Type Department Care Team [...] heating? Not hard at all 06/04/2022 [facility] [place] of Occupat ional Health - Occupational Stress [...] place to sleep or slept in a care home (including now)? 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
--- OUTSIDE RECORDS SUMMARY | 2024-04-11 13:16 | XMS_ITS | Encounter Summary ---
Author Organization [facility] Address [address] [place] [address] Care Team Providers Care Keeper Helper Name Role Phone Karrie Phillips MD Primary Care Provider [phone] Encounter Details Date Type Department Care Team (Latest Contact Info) Description 07/18/2022 11:01 AM CDT - 07/18/2022 11:59 PM CDT Hospital Encounter [facility] DIAGNOSTIC RAD CSM [address] [facility] [place] [address] Deon Taylor MD [address] [place] [address] Discharge Disposition: Home or Self Care Social [...] and heating? Not hard at all 06/04/2022 [facility] [place] of Occupat ional Health - Occupational Stress [...] place to sleep or slept in a jail (including now)? No 06/04/2022 Sex and Gender [...] mouth every evening 06/08/2022 saline nasal spray ([place]; Baby [place]) 0.65 % nasal spray Bally 1 (one) spray into each nostril as needed for Dry Nose 15 mL 02/19/2022 vitamin D3 (Cholecalciferol) 10 MCG (400 UNIT) tablet Take 2 (two) tablets by mouth once daily 06/09/2022 documented as of this encounter Plan of Treatment Upcoming Encounters Date Type Department Care Team (Late st Contact Info) Description 06/02/2024 1:45 PM [employer]TER Office Visit [facility] - Orthopedics [address] [place] [address], [facility] [place] [address] Deon Taylor MD [address] [place] [address] documented as of this encounter Procedures Procedure [...] surgery documented in this encounter Care Teams Keeper Helper Relationship Specialty Start Date End Date Karrie Phillips MD [address] [place] [address] PCP - General 03/13/22 documented as of this encounter
--- OUTSIDE RECORDS SUMMARY | 2024-04-11 13:16 | XMS_ITS | Encounter Summary ---
Author Organization [facility], [facility] Address [address] [place] [address] Care Team Providers Care Foreign Student Adviser Teacher Name Role Phone Karrie Phillips MD Primary Care Provider [phone] Reason for Visit * Reason Comments VOMITING BLOOD Pt arrived via priva [employer] vehicle. Pt states she was encouraged to come here from her clinic appointment today d/t dark red emesis. Pt states she is having increased dizziness with movement and nausea. Pt states she is chilling. * Auth/Cert (Routine) Specialty Diagnoses / Procedures Referred By Everardo fried Referred To Contact Referral ID Status Reason Start Date Expiration Date Visits Re quested Visits Authorized [id number] 1 1 Encounter Details Date Type Department Care Team (Latest Contact Info) Description 06/20/2022 1:47 PM CDT - 06/23/2022 4:53 PM CDT Hospital Encounter [facility] ACUTE [address] [place] [phone] Adolph Mckinney MD [address] [place] [address] Eduar Mathis MD [address] [phone] [place] [address] [place] [address] Internal Medicine Discharge Disposition: Home Health Care [facility] Social History Tobacco Use Types Packs/Day Years [...] and heating? Not hard at all 06/04/2022 [facility] of Occupat ional Health - Occupational Stress [...] place to sleep or slept in a retirement (including now)? No 06/04/2022 Sex and Gender [...] Hospital Discharge Summary Patient ID: Kandace Cole [id number] 72 year old 1950 Admit date: 06/20/2022 [...] Esophagus, chronic hyponatremia, MDD that presented to [facility] on 06/20 from her follow up appointment with her spine surgeon for staple removal with rapid onset of 1 day of 10-20 episodes of vomiting and noted some coffee ground emesis at home. No prior previous reported episodes. On arrival to [facility], she was slightly hypertensive, remaining VSS. [...] spine. Report dictated by Yasir Pierre MD (vice president pharmacy). Kamila Narvaez MD have personally reviewed and [...] Dictated by Sherlyn Hopkins DO (vice president pharmacy). IChaim have personally reviewed and interpreted this [...] 0.65 % nasal spray Commonly known as: [place]; Baby [place] 1 (one) spray into each nostril as needed for Dry Nose vitamin D3 10 MCG (400 UNIT) tablet Commonly known as: Cholecalciferol Take 2 (two) tablets by mouth once daily Where to Get Your Medications These medications were sent to [id number] - [address] [facility] [address] [phone] [facility] [address] ?? ondansetron (disintegrating) 4 MG tablet Follow-up Information Karrie Phillips MD . Specialty: Family Medicine Contact information: [address] [place] [address] [facility] [address] Follow up with provider . Discharge [...] care provider. If you need to call [facility] for any reason, you may reach us at [phone] and dial [phone] for the acid retort operator. If you have any questions about your medications, please be sure to ask the pharmacy when you picker packer your prescription. You may also call your [...] reschedule the appointment. Thanks! Internal Medicine Department [place] [address] [place] [address] Signed: Anabell Hernandez PA-C 06/23/2022 Time spent [...] care provider. If you need to call [facility] for any reason, you may reach us at [phone] and dial [phone] for the acid retort operator. If you have any questions about your medications, please be sure to ask the pharmacy when you picker packer your prescription. You may also call your [...] reschedule the appointment. Thanks! Internal Medicine Department [address] [address] documented in this encounter Medications at Time [...] mouth every evening 06/08/2022 saline nasal spray (Mahnomen; Baby [place]) 0.65 % nasal spray [place] 1 (one) spray into each nostril as [...] Arciniega OT - 06/22/2022 3:35 PM CDT [facility] Department of Physical Medicine & Rehabilitation Progress Note Patient: Kandace Cole [facility] Record Number: [id number] Date of : 1950 Age: [age] year old Per PT, the patient is independent with ADLs and functional mobility, no skilled OT indicated. D/C OT. * Ange Whitman, PT - 06/22/2022 2:55 PM CDT [facility] Physical Medicine and Rehabilitation Physical Therapy Initial Evaluation Note Patient: Kandace Cole [facility] Record Number: [id number] Date of : 1950 Age: [age] year [...] as Tolerated Spine Precautions: Yes Spine Precautions: [place] DIAGNOSIS: Patient Active Problem List: Degeneration of cervical intervertebral disc Syncope and collapse Trauma Injury of head, initial encounter Fall, initial encounter Multiple closed fractures of facial bone, initial encounter (CMS/HCC) Abdominal pain Abnormal serum creatinine level Anemia Heredia's esophagus Cardiomegaly Chronic kidney disease Chronic obstructive pulmonary disease (CMS/[facility]) Chronic depression Dyspnea on exertion Benign essential hypertension Glaucoma Hyperkalemia Hyposmolality Hyperthyroidism Hypothyroidism Intractable chronic migraine without aura Iron deficiency anemia Leukocytosis Macular degeneration Migraine Ulnar neuropathy Type 2 diabetes mellitus (CMS/[facility]) Type 2 diabetes mellitus with stage [...] to have w/c after neck surgery. riaz.) Breakdown Man issued to pt. Pt has bed rails. [...] activity this date. Bed Mobility: Rolling: Modified [place] Supine to Sit: Modified [place] with HOB in semi-fowlers position Sit to Supine: Modified [place] Pt has bed wedge at home to elevate head. Transfers: Sit to Stand: Complete [place] Stand to Sit: Complete [place] Bed to Chair: Complete [place] Type of Transfer: Stand Pivot Transfer Transfer Device: Gait belt;Walker-2 Wheeled Gait: Weight Bearing Status: (WBAT x4 in aspen collar) Distance Ambulated: 125 FEET Ambulation: Assistive Device: Gait Belt;Walker-2 Wheeled Ambulation: Level of Assistance: Modified [place] Ambulation: Gait Deviations: (normal) Balance: Balance Scales/Tests [...] neck surgery. Equipment Issued: gait belt and secretary to board of commissioners Plan: Plan: Discontinue IP PT If patient [...] spine. Report dictated by Yasir Pierre MD (vice president pharmacy). Kamila Narvaez MD have personally reviewed and [...] Dictated by Sherlyn Hopkins DO (vice president pharmacy). Chaim Narvaez have personally reviewed and interpreted [...] questions/concerns. Naif Tenorio MD Internal Medicine, PGY-1 [facility] Associated attestation - Ike Mcpherson MD - 06/22/2022 10:15 AM CDT I have personally seen and examined this patient. I agree with the powerhouse mechanic helper's findings, assessment and plan as outlined. In [...] spine. Report dictated by Yasir Pierre MD (vice president pharmacy). Kamila Narvaez MD have personally reviewed and [...] Dictated by Sherlyn Hopkins DO (vice president pharmacy). Chaim Narvaez have personally reviewed and interpreted [...] -Code: full -Dispo: inpatient Anabell Hernandez PA-C [facility] Medicine [facility] # [id number] Non-urgent messages may be sent through [employer] Secure Chat Date of service: 06/22/2022 Attending [...] resides with her grandson and was independent [employer]. Home when medically clear. Lives with: Other (Comment) (Grandson) Physical Limitations: None Requires Assistance With: None Preferred Pharmacy: [facility] [address] [place] [address] READMISSION RISK SCORE is 20* at 4:42 PM 06/21/2022. Pt LYNNETTE in procedure, chart reviewed. Family Support (name and phone): Extended Emergency Contact Information Primary Emergency Contact: BARBARA CISNEROS Mobile Relation: Brother Secondary Emergency Contact: Barbara Cisneros Address: [place], [place] Relation: Other Patient or home furnishings sales representative requests care coordination reach out to family or caregiver listed above regarding discharge planning and at time of discharge? No Equipment at Home: Chair-Shower;Grab Bars;Cane-Small Base Quad;Walker-2 Wheeled;Walker-4 Wheeled with Seat Jig Bore Operator Referral: No Will continue to follow. For any questions or needs please contact: Grease Rack Worker Name/Phone number: Krystle Guerrero RN [phone] * Ori Iyer PA-C - 06/21/2022 10:19 AM CDT It is fine to remove C collar for patient's EGD. This was approved by Orthopedics (per GI). Ori Iyer PA-C * Ori Iyer PA-C - 06/21/2022 8:53 AM CDT Hospitalist Daily Progress Note Name: Kandace Cole Age: [age] year old Room: [facility]/ Date Admitted: 06/20/2022 Total duration of [...] spine. Report dictated by Yasir Pierre MD (vice president pharmacy). IKamila MD have personally reviewed and interpreted [...] Dictated by Sherlyn Hopkins DO (vice president pharmacy). Chaim Narvaez have personally reviewed and interpreted this examination/study. > Interpreting Provider: Chaim Martins on 06/20/2022 10:47 PM Problem List Shortness of breath POA: Unknown Abdominal pain, left upper quadrant POA: Unknown Dizziness POA: Unknown Hematemesis with nausea POA: Unknown Assessment and plan: Nausea, vomiting with Coffee-ground emesis Hx of heredia esophagus - ddx: upper GI bleed vs sanrdo garner tear vs gastric ulcer, duodenal ulcer [...] continue amlodipine 5 mg daily (started at [facility]) T2DM Hypoglycemia likely 2/2 NPO vs [...] Feel free to text page me through [employer] Date of service: 06/21/2022 Attending Physician: Abeba Will DO * Leobardo Chisholm RN - 06/21/2022 12:24 AM CDT RN called [facility] for infusion channel. * Leobardo Chisholm RN - 06/20/2022 11:21 PM CDT RN called [employer] for SCD pump and Alaris brain w/ channel. * Leobardo Chisholm RN - 06/20/2022 11:00 PM CDT [facility]CD [facility] and [facility] Brain to bedside. [facility] did not have channel. [facility] Staff stated she would be back [...] 72 year old, female : 1950 CSN: [id number] Primary Care Physician: Karrie Phillips MD, MD [...] results for input(s): PTT in the last 31361 hours. Cultures No results found for this or any previous visit (from the past 248 hour(s)). Physical Exam General: Awake, alert, follows commands, ill appearing Neck: - C-collar/[place] J: Present - Dressing: clean and dry [...] closed fractures of facial bone, initial encounter ([facility]) Abdominal pain Abnormal serum creatinine level Anemia Heredia's esophagus Cardiomegaly Chronic kidney disease Chronic obstructive pulmonary disease ([facility]) Chronic depression Dyspnea on exertion Benign essential hypertension Glaucoma Hyperkalemia Hyposmolality Hyperthyroidism Hypothyroidism Intractable chronic migraine without aura Iron deficiency anemia Leukocytosis Macular degeneration Migraine Ulnar neuropathy Type 2 diabetes mellitus ([facility]) Type 2 diabetes mellitus with stage 3 chronic kidney disease, without long-term current use of insulin ([facility]) Temporomandibular joint disorder Systemic sclerosis ([facility]) Sprain of ankle Sciatica Recurrent major depression in remission (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) Shortness of breath Abdominal pain, left [...] 06/08/22 Tammi Perez MD saline nasal spray (Mahnomen; Baby [place]) 0.65 % nasal spray [place] 1 (one) spray into each nostril as [...] spine. Report dictated by Yasir Pierre MD (vice president pharmacy). I, Kamila Barber MD have personally reviewed [...] most recent endoscopic evaluation was 12/2022 in [place]. States at that time there was continued [...] disease, without long-term current use of insulin ([facility]/HCC) Temporomandibular joint disorder Systemic sclerosis (CMS/HCC) Sprain [...] mouth every evening ??? saline nasal spray (Mahnomen; Baby [place]) 0.65 % nasal spray [place] 1 (one) spray into each nostril as [...] spine. Report dictated by Yasir Pierre MD (vice president pharmacy). Kamila Narvaez MD have personally reviewed and [...] Dictated by Sherlyn Hopkins DO (vice president pharmacy). IChaim have personally reviewed and interpreted this examination/study. > Interpreting Provider: Chaim Martins on 06/20/2022 10:47 PM Procedures: Prior endoscopies notable for remote EGD hx of Heredia's esophagus in 2019. States most recent endoscopic evaluation was 12/2022 in [place]. States at that time there was continued [...] 162, trans % sat 10, TIBC 203, [id number], folate 9.4, B12 382. No s/s of [...] AM cortisol to evaluate adrenal function, no terminal operations manager steroid use per history.TSH from 02/16/2022 wnl. [...] questions. Naif Tenorio MD Internal Medicine, PGY-1 [facility] Associated attestation - Ike Mcpherson MD - 06/21/2022 11:56 AM CDT I have personally seen and examined this patient. I agree with the powerhouse mechanic helper's findings, assessment and plan as outlined. In [...] - 06/20/2022 2:45 PM CDT Kandace Cole [id number] [facility] History Chief Complaint Patient [...] mouth every evening ??? saline nasal spray ([place]; Baby [place]) 0.65 % nasal spray [place] 1 (one) spray into each nostril as [...] recent spinal surgery vs volume depleted vs HI - pantoprazole 40mg given - ondansetron 4mg [...] and medical decision making; and I had [id number] time with this patient. I have conducted [...] pain. VSS. DDx: GI bleed, gastritis, gastroenteritis, HI, cardiac arrhythmia, electrolyte derangement; less concern for [...] DATE/TIME OF EXAM: 06/20/2022 3:13 PM, LOCATION [facility] INDICATION: R42: Dizziness R06.02: Shortness of [...] spine. Report dictated by Yasir Pierre MD (vice president pharmacy). I, Kamila Barber MD have personally reviewed and interpreted this examination/study. > Interpreting Provider: Kamila Barber MD on 06/20/2022 4:25 PM XR CHEST 2VW Final Result PROCEDURE: XR CHEST 2VW, DATE/TIME OF EXAM: 06/20/2022 3:03 PM, LOCATION [facility] INDICATION: R06.02: Shortness of breath ADDITIONAL [...] dictated by Yasir Pierre MD (vice president pharmacy). I, Haroldo Ball MD have personally reviewed [...] mg (40 mg Intravenous $ Given 06/20/22 0697) Procedures None ED COURSE Patient seen and [...] and medical decision making; and I had tecg-uq-hanc time with this patient. I have conducted [...] mouth every evening ??? saline nasal spray (Mahnomen; Baby [place]) 0.65 % nasal spray [place] 1 (one) spray into each nostril as [...] st Contact Info) Description 06/02/2024 1:45 PM HOSE TENDER Office Visit [facility] - Orthopedics [address] [place] [address], [facility] [place] [phone] Deon Taylor MD [address] [place] [address] Scheduled Orders Name Type Priority Associated Diagnoses [...] 10.5 10? 3 /uL 06/23/2022 4:17 AM [facility] RBC 2.66(L) 3.80 - 5.20 10? 6 /uL 06/23/2022 4:17 AM [facility] Hemoglobin 8.0(L) 12.0 - 15.6 g/dL 06/23/2022 4:17 AM [facility] Hematocrit 24.2(L) 35.0 - 45.0 % 06/23/2022 4:17 AM [facility] MCV 91.0 80.7 - 98.3 fL 06/23/2022 4:17 AM [facility] MCH 30.1 26.7 - 34.0 pg 06/23/2022 4:17 AM [facility] MCHC 33.1 30.8 - 35.9 g/dL 06/23/2022 4:17 AM [facility] RDW-SD 45.0 36.0 - 50.0 fL 06/23/2022 4:17 AM [facility] RDW-CV 13.7 11.2 - 14.8 % 06/23/2022 4:17 AM [facility] Platelet Count 305 150 - 400 10? 3 /uL 06/23/2022 4:17 AM [facility] MPV 9.7 9.4 - 12.9 fL 06/23/2022 4:17 AM [facility] nRBC Absolute 0.00 0 10? 3 /uL 06/23/2022 4:17 AM [facility] nRBC Auto 0.0 0 /100 WBC 06/23/2022 4:17 AM [facility] Blood BLOOD SPECIMEN / Unknown Lab Venipuncture / Unknown 06/23/2022 3:47 AM CDT 06/23/2022 4:10 AM CDT Ori Iyer PA-C LAB - HEMATOLOGY OR DERABLES Performing Organization Address [facility]/ZIP Co de Phone Number [address] [address], [facility] [phone] * MAGNESIUM BLOOD (06/23/2022 3:06 AM CDT) Magnesium 2.3 1.6 - 2.6 mg/dL 06/23/2022 4:41 AM T [facility] Blood BLOOD SPECIMEN / Unknown Lab Venipuncture / Unknown 06/23/2022 3:06 AM CDT 06/23/2022 4:03 AM CDT Anabell Hernandez PA-C LAB - CHEMISTRY ORD ERABLES Performing Organization Address City/[facility]/ZIP Co de Phone Number [address] [address], [facility] [phone] * (ABNORMAL) BASIC METABOLIC PANEL (CALCIUM TOTAL) (06/23/2022 3:06 AM CDT) BUN 10 7 - 26 mg/dL 06/23/2022 4:38 AM [facility] Creatinine 1.09(H) 0.56 - 0.96 mg/dL 06/23/2022 4:38 AM [facility] Sodium 131(L) 136 - 145 mmol/L 06/23/2022 4:38 AM [facility] Potassium 4.2 3.5 - 4.5 mmol/L 06/23/2022 4:38 AM [facility] Chloride 100 98 - 107 mmol/L 06/23/2022 4:38 AM [facility] CO2 22 22 - 29 mmol/L 06/23/2022 4:38 AM [facility] Glucose 111 70 - 115 mg/dL 06/23/2022 4:38 AM [facility] Calcium 8.2(L) 8.4 - 10.2 mg/dL 06/23/2022 4:38 AM CDT [facility] Anion Gap 13 8 - 18 06/23/2022 4:38 AM T [facility] BUN/Creatinine Ratio 9 7 - 23 06/23/2022 4:38 AM T [facility] Osmolality Calculated 272 270 - 300 mOsm/kg 06/23/2022 4:38 AM T [facility] eGFR by CKD-EPI 54(L) >=90 mL/min/1.7 3 m2 06/23/2022 4:38 AM CDT [facility] Blood BLOOD SPECIMEN / Unknown Lab Venipuncture / Unknown 06/23/2022 3:06 AM CDT 06/23/2022 4:03 AM CDT Anabell Hernandez PA-C LAB - CHEMISTRY ORD ERABLES Performing Organization Address City/[facility]/ZIP Co de Phone Number [address] [address], [facility] [phone] * GLUCOSE - POINT OF CARE (06/22/2022 4:11 PM CDT) Glucose WB/POC 105 70 - 115 mg/dL 06/22/2022 4:12 PM CDT [facility] Specimen Type Arterial 06/22/2022 4:12 PM CDT [facility] Blood BLOOD SPECIMEN / Unknown 06/22/2022 4:11 PM CDT 06/22/2022 4:12 PM CDT Abeba Will DO LAB - POINT OF CARE ORDERABLES [address] [address], [place] [phone] * (ABNORMAL) GLUCOSE - POINT OF CARE (06/22/2022 11:18 AM CDT) Glucose WB/POC 180(H) 70 - 115 mg/dL 06/22/2022 11:19 AM T [facility] Specimen Type Cap Fingerstick 2022 11:19 AM CDT [facility] Blood BLOOD SPECIMEN / Unknown 06/22/2022 11:18 AM CDT 06/22/2022 11:19 AM CDT Abeba Will DO LAB - POINT OF CARE ORDERABLES [facility] [address] [place] [address], [facility] [phone] * (ABNORMAL) CBC W/O DIFFERENTIAL (06/22/2022 2:34 AM CDT) WBC 9.1 3.5 - 10.5 10? 3 /uL 06/22/2022 3:11 AM [facility] RBC 2.70(L) 3.80 - 5.20 10? 6 /uL 06/22/2022 3:11 AM [facility] Hemoglobin 8.0(L) 12.0 - 15.6 g/dL 06/22/2022 3:11 AM [facility] Hematocrit 24.2(L) 35.0 - 45.0 % 06/22/2022 3:11 AM [facility] MCV 89.6 80.7 - 98.3 fL 06/22/2022 3:11 AM [facility] MCH 29.6 26.7 - 34.0 pg 06/22/2022 3:11 AM [facility] MCHC 33.1 30.8 - 35.9 g/dL 06/22/2022 3:11 AM [facility] RDW-SD 44.2 36.0 - 50.0 fL 06/22/2022 3:11 AM [facility] RDW-CV 13.5 11.2 - 14.8 % 06/22/2022 3:11 AM [facility] Platelet Count 358 150 - 400 10? 3 /uL 06/22/2022 3:11 AM [facility] MPV 9.2(L) 9.4 - 12.9 fL 06/22/2022 3:11 AM [facility] nRBC Absolute 0.00 0 10? 3 /uL 06/22/2022 3:11 AM [facility] nRBC Auto 0.0 0 /100 WBC 06/22/2022 3:11 AM CDT [facility] Blood BLOOD SPECIMEN / Unknown Lab Venipuncture / Unknown 06/22/2022 2:34 AM CDT 06/22/2022 3:01 AM CDT Ori Iyer PA-C LAB - HEMATOLOGY OR DERABLES Performing Organization Address City/[facility]/ZIP Co de Phone Number [address] [address], [facility] [phone] * (ABNORMAL) MAGNESIUM BLOOD (06/22/2022 2:34 AM CDT) Magnesium 1.5(L) 1.6 - 2.6 mg/dL 06/22/2022 3:29 AM T [facility] Blood BLOOD SPECIMEN / Unknown Lab Venipuncture / Unknown 06/22/2022 2:34 AM CDT 06/22/2022 3:02 AM CDT Ori Iyer PA-C LAB - CHEMISTRY ORD ERABLES Performing Organization Address City/[facility]/ZIP Co de Phone Number [address] [address], [facility] [phone] * (ABNORMAL) RENAL FUNCTION PANEL (06/22/2022 2:34 AM CDT) BUN 13 7 - 26 mg/dL 06/22/2022 3:29 AM T [facility] Creatinine 1.07(H) 0.56 - 0.96 mg/dL 06/22/2022 3:29 AM [facility] Sodium 132(L) 136 - 145 mmol/L 06/22/2022 3:29 AM T [facility] Potassium 3.8 3.5 - 4.5 mmol/L 06/22/2022 3:29 AM [facility] Chloride 99 98 - 107 mmol/L 06/22/2022 3:29 AM T [facility] CO2 25 22 - 29 mmol/L 06/22/2022 3:29 AM [facility] Glucose 126(H) 70 - 115 mg/dL 06/22/2022 3:29 AM [facility] Albumin 2.8(L) 3.4 - 5.0 g/dL 06/22/2022 3:29 AM [facility] Calcium 8.5 8.4 - 10.2 mg/dL 06/22/2022 3:29 AM [facility] Phosphorus 2.8(L) 2.9 - 5.1 mg/dL 06/22/2022 3:29 AM [facility] Anion Gap 12 8 - 18 06/22/2022 3:29 AM [facility] BUN/Creatinine Ratio 12 7 - 06/22/2022 3:29 AM [facility] Osmolality Calculated 276 270 - 300 mOsm/kg 06/22/2022 3:29 AM [facility] eGFR by CKD-EPI 55(L) >=90 mL/min/1.7 3 m2 06/22/2022 3:29 AM [facility] Blood BLOOD SPECIMEN / Unknown Lab Venipuncture / Unknown 06/22/2022 2:34 AM CDT 06/22/2022 3:02 AM CDT Ori Iyer PA-C LAB - CHEMISTRY ORD ERABLES [facility] [address] [place] [address], [facility] [phone] * CORTISOL BLOOD AM (06/22/2022 2:34 AM CDT) Cortisol AM 14.3 3.7 - 19.4 ug/dL 06/22/2022 3:49 AM T [facility] Blood BLOOD SPECIMEN / Unknown Lab Venipuncture / Unknown 06/22/2022 2:34 AM CDT 06/22/2022 3:02 AM CDT Narrative [facility] - 06/22/2022 3:49 AM CDT Normal cortisol levels are generally highest in the morning hours and lowest from late evening through the assistant corporate secretary 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 ??The PM measurements of cortisol run approximately one-half to one-third of the AM values. Ori Iyer PA-C LAB - CHEMISTRY ORD ERABLES Performing Organization Address [facility] Co de Phone Number [facility] [address] [place] [address], [place] [phone] * GLUCOSE - POINT OF CARE (06/21/2022 5:10 PM CDT) Glucose WB/POC 103 70 - 115 mg/dL 06/21/2022 5:14 PM CDT [facility] Specimen Type Cap Fingerstick 2022 5:14 PM CDT [facility] Blood BLOOD SPECIMEN / Unknown 06/21/2022 5:10 PM CDT 06/21/2022 5:14 PM CDT Abeba Will DO LAB - POINT OF CARE ORDERABLES Performing Organization Address [facility] Co de Phone Number [facility] [address] [place] [address], [place] [phone] * PATHOLOGY TISSUE (06/21/2022 4:40 PM CDT) Pathologist [facility] Case Report Surgical Pathology Report ? Case: [id number] ? Authorizing Provider: ??Carmen Morales MD ? Collected: ? 06/21/2022 04:40 PM ? Ordering Location: ? [facility] ?Received: ?06/22/2022 08:59 AM ? Pathologist: ? Hansa Gusman MD ? Specimen: ?Small Bowel, small bowel biopsy r/o celiac ? 06/25/2022 2:[address] [facility] Final Diagnosis Small intestine, small bowel, biopsy (A): - No histopathologic abnormality - Intact villous and crypt architecture without increased intraepithelial lymphocytes 06/25/2022 2:[address] [facility] Microscopic Description and Comment Microscopic examination substantiates the final diagnosis. 06/25/2022 2:[address] [facility] Clinical History The patient is a 72-year-old woman presented with coffee-ground emesis who underwent upper GI endoscopy. 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 Duodenal bulb erythema, biopsied for evaluation of celiac disease. 06/25/2022 2:[address] [facility] Gross Description The requisition and specimen(s) are identified with the patient's name Kandace Cole. Received in formalin, specimen A , are 5 pink-freeman tissues, 0.3-0.9 cm in greatest dimension and 2.3 x 0.3 x 0.2 cm in aggregate, submitted in toto in cassette A1. DF 06/25/2022 2:[address] [facility] Disclaimer The performance characteristics of all immunohistochemical and indirect immunofluorescence stains (if any) cited in this report were determined by the Histopathology Laboratory of [facility]. Some of these tests were developed by [...] attending (teaching) pathologist. 06/25/2022 2:27 PM CDT [facility] Embedded Images 06/25/2022 2:27 PM CDT [facility] Resection without Tumor SMALL BOWEL RESECTION SPECIMEN / Unknown 06/21/2022 4:40 PM CDT 06/22/2022 8:59 AM CDT Comment:Pre-op diagnosis: Coffee ground emesis Carmen Morales MD LAB - PATHOLOGY/CYTO LOGY ORDERABLES [facility] [address] [facility] [place] [address], [facility] [phone] * EGD (06/21/2022 4:24 PM CDT) Report [...] Procedure Code(s): ? --- Professional --- ? 35690, Esophagogastroduode noscopy, flexible, transoral; with biopsy, ? single or multiple Diagnosis Code(s): ?--- Professional --- ?K22.70, Heredia's esophagus without dysplasia ?K92.0, Hematemesis CPT copyright 2019 [employer]. All rights reserved. The codes documented in this report are preliminary and upon data management review may be revised to meet current compliance requirements. Carmen Morales, 06/21/2022 5:01:11 PM Note Initiated On: 06/21/2022 4:24 PM Number of Addenda: 0 ? [facility] ? [address] [place] [address] [facility] 06/21/2022 4:24 PM CDT Abeba Will DO GI PROCEDURE ORDERAB LES Performing Organization Address City/[facility]/ZIP Co de Phone Number [facility] * CARDIAC EKG ORDER (06/21/2022 3:29 PM CDT) Narrative 06/21/2022 3:29 PM CDT Ordered by an unspecified provider. Scanned Document CARDIAC SERVICES ORD ERABLES * (ABNORMAL) GLUCOSE - POINT OF CARE (06/21/2022 2:59 PM CDT) Glucose WB/POC 143(H) 70 - 115 mg/dL 06/21/2022 3:04 PM CDT [facility] Specimen Type Cap Fingerstick 2022 3:04 PM CDT [facility] Blood BLOOD SPECIMEN / Unknown 06/21/2022 2:59 PM CDT 06/21/2022 3:04 PM CDT Abeba Will DO LAB - POINT OF CARE ORDERABLES Performing Organization Address [facility]/ZIP Co de Phone Number [facility] [address] [place] [phone], [place] [phone] * (ABNORMAL) GLUCOSE - POINT OF CARE (06/21/2022 2:00 PM CDT) Glucose WB/POC 47(LL) 70 - 115 mg/dL 06/21/2022 2:04 PM [facility] Spec[facility] Type Cap Fingerstick 2022 2:04 PM [facility] Blood BLOOD SPECIMEN / Unknown 06/21/2022 2:00 PM CDT 06/21/2022 2:04 PM CDT Abeba Will DO LAB - POINT OF CARE ORDERABLES [facility] [address] [place] [phone], [facility] [phone] * (ABNORMAL) CBC W AUTO DIFFERENTIAL (06/21/2022 2:03 AM CDT) WBC 8.0 3.5 - 10.5 10? 3 /uL 06/21/2022 2:59 AM [facility] RBC 2.77(L) 3.80 - 5.20 10? 6 /uL 06/21/2022 2:59 AM [facility] Hemoglobin 8.3(L) 12.0 - 15.6 g/dL 06/21/2022 2:59 AM [facility] Hematocrit 25.9(L) 35.0 - 45.0 % 06/21/2022 2:59 AM [facility] MCV 93.5 80.7 - 98.3 fL 06/21/2022 2:59 AM [facility] MCH 30.0 26.7 - 34.0 pg 06/21/2022 2:59 AM [facility] MCHC 32.0 30.8 - 35.9 g/dL 06/21/2022 2:59 AM [facility] RDW-SD 46.8 36.0 - 50.0 fL 06/21/2022 2:59 AM [facility] RDW-CV 13.8 11.2 - 14.8 % 06/21/2022 2:59 AM [facility] Platelet Count 415(H) 150 - 400 10? 3 /uL 06/21/2022 2:59 AM [facility] MPV 9.6 9.4 - 12.9 fL 06/21/2022 2:59 AM [facility] nRBC Absolute 0.00 0 10? 3 /uL 06/21/2022 2:59 AM [facility] nRBC Auto 0.0 0 /100 WBC 06/21/2022 2:59 AM [facility] Neutrophils % 68.7 35.0 - 70.0 % 06/21/2022 2:59 AM [facility] Lymphocytes % 17.2(L) 20.0 - 43.0 % 06/21/2022 2:59 AM [facility] Monocytes % 10.7 5.0 - 13.0 % 06/21/2022 2:59 AM [facility] Eosinophils % 2.3 0.0 - 6.0 % 06/21/2022 2:59 AM [facility] Basophil % 0.6 0.0 - 2.0 % 06/21/2022 2:59 AM [facility] Neutrophils Absolute 5.47 1.60 - 7.00 10? 3 /uL 06/21/2022 2:59 AM [facility] Lymphocyte Absolute 1.37 1.10 - 3.90 10? 3 /uL 06/21/2022 2:59 AM [facility] Monocytes Absolute 0.85 0.26 - 1.07 10? 3 /uL 06/21/2022 2:59 AM [facility] Eosinophils Absolute 0.18 0.00 - 0.47 10? 3 /uL 06/21/2022 2:59 AM [facility] Basophils Absolute 0.05 0.00 - 0.08 10? 3 /uL 06/21/2022 2:59 AM [facility] Immature Granulocytes % 0.5 0.0 - 1.0 % 06/21/2022 2:59 AM [facility] Immature Granulocytes Absolute 0.04 06/21/2022 2:59 AM [facility] Blood BLOOD SPECIMEN / Unknown Lab Venipuncture / Unknown 06/21/2022 2:03 AM CDT 06/21/2022 2:39 AM CDT Deepa Georges MD LAB - HEMATOLOGY ORD ERABLES Performing Organization Address City/State/[facility] Co de Phone Number [address] [address], [facility] [phone] * (ABNORMAL) COMPREHENSIVE METABOLIC PANEL (06/21/2022 2:03 AM [facility]) BUN 14 7 - 26 mg/dL 06/21/2022 3:05 AM [facility] Creatinine 1.11(H) 0.56 - 0.96 mg/dL 06/21/2022 3:05 AM [facility] Sodium 134(L) 136 - 145 mmol/L 06/21/2022 3:05 AM [facility] Potassium 4.2 3.5 - 4.5 mmol/L 06/21/2022 3:05 AM [facility] Chloride 96(L) 98 - 107 mmol/L 06/21/2022 3:05 AM [facility] CO2 25 22 - 29 mmol/L 06/21/2022 3:05 AM [facility] Glucose 54(L) 70 - 115 mg/dL 06/21/2022 3:05 AM [facility] Calcium 9.5 8.4 - 10.2 mg/dL 06/21/2022 3:05 AM [facility] Protein Total 6.0 6.0 - 8.3 g/dL 06/21/2022 3:05 AM [facility] Albumin 3.3(L) 3.4 - 5.0 g/dL 06/21/2022 3:05 AM [facility] Bilirubin Total 0.7 0.2 - 1.2 mg/dL 06/21/2022 3:05 AM [facility] Alkaline Phosphatase 62 40 - 150 U/L 06/21/2022 3:05 AM [facility] ALT 10 5 - 55 U/L 06/21/2022 3:05 AM [facility] AST 15 5 - 34 U/L 06/21/2022 3:05 AM [facility] Anion Gap 17 8 - 18 06/21/2022 3:05 AM [facility] BUN/Creatinine Ratio 13 7 - 23 06/21/2022 3:05 AM [facility] Osmolality Calculated 276 270 - 300 mOsm/kg 06/21/2022 3:05 AM [facility] Albumin/Globulin Ratio 1.2 1.1 - 2.3 06/21/2022 3:05 AM [facility] eGFR by CKD-EPI 53(L) >=90 mL/min/1.7 3 m2 06/21/2022 3:05 AM [facility] Blood BLOOD SPECIMEN / Unknown Lab Venipuncture / Unknown 06/21/2022 2:03 AM CDT 06/21/2022 2:39 AM T Deepa Georges MD LAB - CHEMISTRY CHELO QUIGLEY [facility] [address] [place] [phone], [facility] [phone] * (ABNORMAL) URINALYSIS REFLEX TO MICROSCOPIC NO CULTURE (06/21/2022 12:50 AM T) Color UA Yellow Straw, Yellow 06/21/2022 1:04 AM [facility] Clarity UA Clear Clear 06/21/2022 1:04 AM [facility] Specific [place] UA 1.048(H) 1.005 - 1.030 06/21/2022 1:04 AM [facility] pH UA 7.0 5.0 - 8.0 pH 06/21/2022 1:04 AM [facility] Protein UA Negative Negative 06/21/2022 1:04 AM [facility] Glucose UA Negative Negative 06/21/2022 1:04 AM [facility] Ketone UA 1+(A) Negative 06/21/2022 1:04 AM [facility] Bilirubin UA Negative Negative 06/21/2022 1:04 AM [facility] Blood UA Negative Negative 06/21/2022 1:04 AM [facility] Nitrite UA Negative Negative 06/21/2022 1:04 AM [facility] Leukocyte Esterase Trace(A) Negative 06/21/2022 1:04 AM [facility] Urobilinogen UA Negative Negative mg/dL 06/21/2022 1:04 AM [facility] RBC UA 0-2 None Seen, 0-2, 3-5 /HPF 06/21/2022 1:04 AM CDT [facility] WBC UA 0-5 None Seen, 0-5 /HPF 06/21/2022 1:04 AM CDT [facility] Squamous Epithelial Cells UA 0-2 None Seen, 0-2, 3-5 /HPF 06/21/2022 1:04 AM CDT [facility] Urine URINE SPECIMEN OBTAINED BY CLEAN CATCH PROCEDURE / Unknown Collection / Unknown 06/21/2022 12:50 AM CDT 06/21/2022 12:57 AM CDT Narrative [facility] - 06/21/2022 1:04 AM CDT Sima Kaufman PA-C LAB - URINALYSIS OR DERABLES Performing Organization Address City/[facility]/ZIP Co de Phone Number [address] [address], [place] [phone] * (ABNORMAL) HEMOGLOBIN (06/20/2022 10:18 PM CDT) Hemoglobin 8.5(L) 12.0 - 15.6 g/dL 06/20/2022 10:42 PM CDT [facility] Blood BLOOD SPECIMEN / Unknown Lab Venipuncture / Unknown 06/20/2022 10:18 PM CDT 06/20/2022 10:39 PM CDT Deepa Georges MD LAB - HEMATOLOGY ORD ERABLES Performing Organization Address City/[facility]/ZIP Co de Phone Number [address] [address], [place] [phone] * B-TYPE NATRIURETIC PEPTIDE (06/20/2022 10:18 PM CDT) BNP 99 <100 pg/mL 06/20/2022 11:17 PM CDT [facility] Comment: A decision threshold of 100 pg/mL [...] - CHEMISTRY CHELO QUIGLEY Performing Organization Address [facility]/State/[facility] Co de Phone Number [place] [phone] [place] [address], [place] [phone] * CT ANGIO ABDOMEN PELVIS (06/20/2022 5:05 [...] Dictated by Sherlyn Hopkins DO (vice president pharmacy). I, Chaim Martins have personally reviewed and interpreted this examination/study. > Interpreting Provider: Chaim Martins on 06/20/2022 10:47 PM Narrative 06/20/2022 10:47 PM CDT PROCEDURE: ??CT ANGIO ABDOMEN PELVIS, DATE/TIME OF EXAM: ??06/20/2022 5:05 PM, LOCATION ??[facility] INDICATION: R10.12: Abdominal pain, left upper [...] PELVIS, DATE/TIME OF EXAM: 06/20/2022 5:05PM, LOCATION [facility] INDICATION: R10.12: Abdominal pain, left upper [...] Dictated by Sherlyn Hopkins DO (vice president pharmacy). IChaim have personally reviewed and interpreted this [...] spine. Report dictated by Yasir Pierre MD (vice president pharmacy). Kamila Narvaez MD have personally reviewed and interpreted this examination/study. > Interpreting Provider: Kamila Barber MD on 06/20/2022 4:25 PM Narrative 06/20/2022 4:25 PM CDT PROCEDURE: ??XR CERVICAL SPINE 2 OR 3VW, DATE/TIME OF EXAM: ??06/20/2022 3:13 PM, LOCATION ??[facility] INDICATION: R42: Dizziness R06.02: Shortness of [...] 3VW, DATE/TIME OF EXAM: 33:13 PM, LOCATION [facility] INDICATION: R42: Dizziness R06.02: Shortness of [...] spine. Report dictated by Yasir Pierre MD (vice president pharmacy). Kamila Narvaez MD have personally reviewed and interpreted this examination/study. > Interpreting Provider: Kamila Barber MD on 06/20/2022 4:25 PM Adolph Mckinney MD DIAGNOSTIC IMAGING ORDERABLES * XR CHEST 2VW (06/20/2022 3:02 PM CDT) Anatomical Region Laterality Modality Chest Radiographic Vivian ging 06/20/2022 3:13 PM CDT Narrative 06/20/2022 3:49 PM CDT PROCEDURE: ??XR CHEST 2VW, DATE/TIME OF EXAM: ??06/20/2022 3:03 PM, LOCATION [facility] INDICATION: R06.02: Shortness of breath ADDITIONAL [...] dictated by Yasir Pierre MD (vice president pharmacy). Haroldo Narvaez MD have personally reviewed and interpreted this examination/study. > Interpreting Provider: Haroldo Ball MD on 06/20/2022 3:49 PM Procedure Note Haroldo Ball MD - 06/20/2022 PROCEDURE: XR CHEST 2VW, DATE/TIME OF EXAM: 06/20/2022 3:03 PM, LOCATION [facility] INDICATION: R06.02: Shortness of breath ADDITIONAL [...] dictated by Yasir Pierre MD (vice president pharmacy). I, Haroldo Ball MD have personally reviewed and interpreted this examination/study. > Interpreting Provider: Haroldo Ball MD on 06/20/2022 3:49 PM Adolph Mckinney MD DIAGNOSTIC IMAGING ORDERABLES * TYPE + SCREEN PANEL (06/20/2022 2:05 PM CDT) Pathologist [facility] Antibody Screen NEG 2:53 PM CDT [facility] ABO Rh A POS 06/20/2022 2:53 PM CDT [facility] Blood Bank BLOOD SPECIMEN / Unknown Venipuncture / Unknown 06/20/2022 2:05 PM CDT 06/20/2022 2:08 PM CDT Adolph Mckinney MD LAB - BLOOD BANK O RDERABLES Performing Organization Address City/[facility]/ZIP Co de Phone Number [facility] [address] [place] [phone], [facility] [phone] * LACTIC ACID BLOOD (06/20/2022 2:05 PM CDT) [facility] Lactic Acid-Stat 1.1 <=2.0 mmol/L 06/20/2022 2:48 PM CDT [facility] Blood BLOOD SPECIMEN / Unknown Venipuncture / Unknown 06/20/2022 2:05 PM CDT 06/20/2022 2:23 PM CDT Adolph Mckinney MD LAB - CHEMISTRY OR DERABLES [address] [address], [facility] [phone] * LIPASE BLOOD (06/20/2022 2:05 PM CDT) Pathologist [facility] Lipase 18 8 - 78 U/L 06/20/2022 2:50 PM CDT [facility] Blood BLOOD SPECIMEN / Unknown Venipuncture / Unknown 06/20/2022 2:05 PM CDT 06/20/2022 2:23 PM CDT Narrative [facility] - 06/20/2022 2:50 PM CDT Lipase results from the [employer] Alinity analyzer may not be comparable with other methodologies. Adolph Mckinney MD LAB - CHEMISTRY OR DERABLES Performing Organization Address [facility] Co de Phone Number [facility] [address] [place] [address], [facility] [phone] * PT-INR [facility] (06/20/2022 2:05 PM CDT) PT 13.4 12.1 - 14.8 Seconds 06/20/2022 2:48 PM CDT [facility] INR 1.0 See Comment 06/20/2022 2:48 PM CDT [facility] Comment:The suggested therap eutic range for standard coumadin (warfarin) therapy is an INR of 2.0-3.0. For high-risk patients (Mechanical Mitral Valve Prosthesis, etc.), the suggested prophylactic therapeutic range is an INR of 2.5-3.5. Blood BLOOD SPECIMEN / Unknown Venipuncture / Unknown 06/20/2022 2:05 PM CDT 06/20/2022 2:07 PM CDT Adolph Mckinney MD LAB - COAGULATION ORDERABLES Performing Organization Address City/[facility] Co de Phone Number [facility] [address] [place] [address], [facility] [phone] * (ABNORMAL) CBC W/O DIFFERENTIAL (06/20/2022 2:05 PM CDT) WBC 9.5 3.5 - 10.5 10? 3 /uL 06/20/2022 2:27 PM CDT [facility] RBC 3.07(L) 3.80 - 5.20 10? 6 /uL 06/20/2022 2:27 PM CDT [facility] Hemoglobin 9.3(L) 12.0 - 15.6 g/dL 06/20/2022 2:27 PM [facility] Hematocrit 27.6(L) 35.0 - 45.0 % 06/20/2022 2:27 PM [facility] MCV 89.9 80.7 - 98.3 fL 06/20/2022 2:27 PM [facility] MCH 30.3 26.7 - 34.0 pg 06/20/2022 2:27 PM [facility] MCHC 33.7 30.8 - 35.9 g/dL 06/20/2022 2:27 PM [facility] RDW-SD 45.2 36.0 - 50.0 fL 06/20/2022 2:27 PM [facility] RDW-CV 14.0 11.2 - 14.8 % 06/20/2022 2:27 PM [facility] Platelet Count 463(H) 150 - 400 10? 3 /uL 06/20/2022 2:27 PM [facility] MPV 9.2(L) 9.4 - 12.9 fL 06/20/2022 2:27 PM [facility] nRBC Absolute 0.00 0 10? 3 /uL 06/20/2022 2:27 PM [facility] nRBC Auto 0.0 0 /100 WBC 06/20/2022 2:27 PM [facility] Blood BLOOD SPECIMEN / Unknown Venipuncture / Unknown 06/20/2022 2:05 PM CDT 06/20/2022 2:22 PM CDT Adolph Mckinney MD LAB - HEMATOLOGY O RDERABLES [facility] [address] [place] [phone], [facility] [phone] * TROPONIN-I HIGH SENSITIVE REFLEX 1HOUR (06/20/2022 1:05 PM CDT) Troponin I High Sensitive 8 <=14 ng/L 06/20/2022 1:59 PM T [facility] Delta Troponin I HS 06/20/2022 1:59 PM T [facility] Comment:Delta value intentio anil not calculated. Baseline to 1 hour specimen collection interval exceeded. Blood BLOOD SPECIMEN / Unknown Venipuncture / Unknown 06/20/2022 1:05 PM CDT 06/20/2022 1:23 PM CDT Sima Kaufman PA-C LAB - CHEMISTRY ORD ERABLES Performing Organization Address City/[facility]/ZIP Co de Phone Number [address] [phone], [facility] [phone] * TROPONIN-I HIGH SENSITIVE BASELINE + 1HR (06/20/2022 9:49 AM CDT) Pathologist [facility] Troponin I High Sensitive 7 <=14 ng/L 06/20/2022 10:39 AM CDT [facility] Blood BLOOD SPECIMEN / Unknown Venipuncture / Unknown 06/20/2022 9:49 AM CDT 06/20/2022 9:55 AM CDT Sima Kaufman PA-C LAB - CHEMISTRY ORD ERABLES Performing Organization Address [facility]/ZIP Co de Phone Number [address] [address], [facility] [phone] * (ABNORMAL) COMPREHENSIVE METABOLIC PANEL (06/20/2022 9:49 AM CDT) Pathologist [facility] BUN 14 7 - 26 mg/dL 06/20/2022 10:32 AM T [facility] Creatinine 1.02(H) 0.56 - 0.96 mg/dL 06/20/2022 10:[address] [facility] Sodium 128(L) 136 - 145 mmol/L 06/20/2022 10:32 AM T [facility] Potassium 4.3 3.5 - 4.5 mmol/L 06/20/2022 10:[address] [facility] Chloride 93(L) 98 - 107 mmol/L 06/20/2022 10:[address] [facility] CO2 26 22 - 29 mmol/L 06/20/2022 10:32 AM T [facility] Glucose 91 70 - 115 mg/dL 06/20/2022 10:32 AM [facility] Calcium 9.8 8.4 - 10.2 mg/dL 06/20/2022 10:32 AM [facility] Protein Total 6.5 6.0 - 8.3 g/dL 06/20/2022 10:32 AM [facility] Albumin 3.5 3.4 - 5.0 g/dL 06/20/2022 10:32 AM [facility] Bilirubin Total 0.6 0.2 - 1.2 mg/dL 06/20/2022 10:32 AM [facility] Alkaline Phosphatase 66 40 - 150 U/L 06/20/2022 10:32 AM [facility] ALT 10 5 - 55 U/L 06/20/2022 10:32 AM [facility] AST 16 5 - 34 U/L 06/20/2022 10:32 AM [facility] Anion Gap 13 8 - 18 06/20/2022 10:32 AM [facility] BUN/Creatinine Ratio 14 7 - 23 06/20/2022 10:32 AM [facility] Osmolality Calculated 266(L) 270 - 300 mOsm/kg 06/20/2022 10:32 AM [facility] Albumin/Globulin Ratio 1.2 1.1 - 2.3 06/20/2022 10:32 AM [facility] eGFR by CKD-EPI 58(L) >=90 mL/min/1.7 3 m2 06/20/2022 10:32 AM [facility] Blood BLOOD SPECIMEN / Unknown Venipuncture / Unknown 06/20/2022 9:49 AM CDT 06/20/2022 9:55 AM CDT Sima Kaufman PA-C LAB - CHEMISTRY ORD ERABLES [facility] [address] [place] [address], [facility] [phone] * (ABNORMAL) CBC W AUTO DIFFERENTIAL (06/20/2022 9:49 AM CDT) WBC 11.8(H) 3.5 - 10.5 10? 3 /uL 06/20/2022 9:58 AM [facility] RBC 3.02(L) 3.80 - 5.20 10? 6 /uL 06/20/2022 9:58 AM [facility] Hemoglobin 9.0(L) 12.0 - 15.6 g/dL 06/20/2022 9:58 AM [facility] Hematocrit 27.7(L) 35.0 - 45.0 % 06/20/2022 9:58 AM [facility] MCV 91.7 80.7 - 98.3 fL 06/20/2022 9:58 AM [facility] MCH 29.8 26.7 - 34.0 pg 06/20/2022 9:58 AM [facility] MCHC 32.5 30.8 - 35.9 g/dL 06/20/2022 9:58 AM [facility] RDW-SD 45.6 36.0 - 50.0 fL 06/20/2022 9:58 AM [facility] RDW-CV 13.8 11.2 - 14.8 % 06/20/2022 9:58 AM [facility] Platelet Count 449(H) 150 - 400 10? 3 /uL 06/20/2022 9:58 AM [facility] MPV 9.0(L) 9.4 - 12.9 fL 06/20/2022 9:58 AM [facility] nRBC Absolute 0.00 0 10? 3 /uL 06/20/2022 9:58 AM [facility] nRBC Auto 0.0 0 /100 WBC 06/20/2022 9:58 AM [facility] Neutrophils % 84.6(H) 35.0 - 70.0 % 06/20/2022 9:58 AM [facility] Lymphocytes % 6.7(L) 20.0 - 43.0 % 06/20/2022 9:58 AM [facility] Monocytes % 6.6 5.0 - 13.0 % 06/20/2022 9:58 AM [facility] Eosinophils % 1.1 0.0 - 6.0 % 06/20/2022 9:58 AM CDT [facility] Basophil % 0.6 0.0 - 2.0 % 06/20/2022 9:58 AM CDT [facility] Neutrophils Absolute 9.94(H) 1.60 - 7.00 10? 3 /uL 06/20/2022 9:58 AM CDT [facility] Lymphocyte Absolute 0.79(L) 1.10 - 3.90 10? 3 /uL 06/20/2022 9:58 AM T [facility] Monocytes Absolute 0.77 0.26 - 1.07 10? 3 /uL 06/20/2022 9:58 AM [facility] Eosinophils Absolute 0.13 0.00 - 0.47 10? 3 /uL 06/20/2022 9:58 AM CDT [facility] Basophils Absolute 0.07 0.00 - 0.08 10? 3 /uL 06/20/2022 9:58 AM CDT [facility] Immature Granulocytes % 0.4 0.0 - 1.0 % 06/20/2022 9:58 AM CDT [facility] Immature Granulocytes Absolute 0.05 06/20/2022 9:58 AM [facility] Blood BLOOD SPECIMEN / Unknown Venipuncture / Unknown 06/20/2022 9:49 AM CDT 06/20/2022 9:54 AM CDT Sima Kaufman PA-C LAB - HEMATOLOGY OR DERABLES Performing Organization Address [facility] Co de Phone Number [facility] [address] [place] [address], [facility] [phone] * EKG 12-LEAD (06/20/2022 9:40 AM CDT) Ventricular Rate 88 BPM [facility] Atrial Rate 88 BPM [facility] P-R Interval 176 ms [facility] QRS Duration ms 70 ms [facility] Q-T Interval ms 348 ms [facility] QTC Calculation (Bezet) 421 ms [facility] Calculated P [place] 75 degrees [facility] MUSE Calculated R [place] 55 degrees [facility] MUSE Calculated T [place] 74 degrees [facility] MUSE Interpretation EKG NORMAL SINUS RHYTHM NORMAL ECG WHEN COMPARED WITH ECG OF 15-FEB-2022 00:55, VENT. RATE HAS INCREASED by 15 bpm Confirmed by MARIN KEARNS MD ([id number]) on 06/20/2022 1:46:36 PM [facility] 06/20/2022 9:40 AM CDT 06/20/2022 1:46 PM CDT Sima Kaufman PA-C ECG ORDERABLES [facility] documented in this encounter Visit [...] ($ Given - Provider: Mark Anthony Magana RN)[id number] ($ Given - Provider: Damian Arevalo RN) [...] swallow. documented in this encounter Care Teams Foreign Student Adviser Teacher Relationship Specialty Start Date End Date Karrie Phillips MD [address] [place] [address] PCP - General 03/13/22 documented as of this encounter
--- OUTSIDE RECORDS SUMMARY | 2024-04-11 13:16 | XMS_ITS | Patient Health Summary ---
Author Organization [facility] [employer] Address [address] [facility] [place] [address] Care Team Providers Care Fingerprinter Name Role Phone Karrie Phillips MD Primary Care Provider [phone] Note from [facility],non-owned Affiliates and Associated Physician Practices is amultiple site organization consisting of ambulatory clinics and hospital sitesin [place], [place], [place] and [place]. This disclosure is being madepursuant to the Care Everywhere program and may not contain all information available regarding this patient. Last updated 17.[facility] [employer] Allergies * Cyclobenzaprine * Eggs * Fluoxetine [...] / 24 hours. * saline nasal spray ([place]; Baby [place]) 0.65 % nasal spray(Started 02/19/2022) Powell 1 (one) spray into each nostril as [...] and heating? Not hard at all 06/04/2022 [facility] of Occupat ional Health - Occupational Stress [...] lb 3.2 oz) 06/04/2023 2:02 P M CUFF SETTER LOCKSTITCH Height 154.9 cm (5' 1 ) 12/04/2022 2:47 PM CDT Body Mass Index 28.57 12/04/2022 2:47 PM CDT Medical Devices Implanted Type Area Municipal Firefighter Device Identifier Shelf Expiration Date Model / Serial / Lot Jean Bone Void 10ml Dbm Grftn Algrf Ptty Implanted:Qty: 1 on 06/04/2022 by Deon Taylor MD at [facility] N/A: Spine [employer] 05/04/2025 [id number] / / [id number] 90mm Rods Implanted:Qty: 2 on 06/04/2022 by Deon Taylor MD at [facility] N/A: Spine Synthes Spine [id number] / / Jean Bone Void 10ml Dbm Grftn Algrf Ptty Implanted:Qty: 1 on 06/04/2022 by Deon Taylor MD at [facility] N/A: Spine [employer] 05/04/2025 [id number] / / [id number] Graft Bone Canc 4-9.5mm 15cc Frzdr Chp Implanted:Qty: 1 on 06/04/2022 by Deon Taylor MD at [facility] N/A: Spine [employer]ource 02/26/2027 [id number] / / [id number] Graft Bone Canc 4-9.5mm 30cc Algrf Frzdr Implanted:Qty: 1 on 06/04/2022 by Deon Taylor MD at [facility] N/A: Spine [employer] 12/27/2025 [id number] / / [id number] 3.5 X 14mm Screw Implanted:Qty: 4 on 06/04/2022 by Deon Taylor MD at [facility] N/A: Spine Synthes Spine [id number] / / 4.0x 20mm Screw Implanted:Qty: 2 on 06/04/2022 by Deon Taylor MD at [facility] N/A: Spine [employer] Spine [id number] / / 5.0 X 24mm Screw Implanted:Qty: 2 on 06/04/2022 by Deon Taylor MD at [facility] N/A: Spine [employer] Spine [id number] / / 4.5 X 26mm Screw Implanted:Qty: 2 on 06/04/2022 by Deon Taylor MD at [facility] N/A: Spine [employer] Spine [id number] / / Screw Caps Implanted:Qty: 10 on 06/04/2022 by Deon Taylor MD at [facility] N/A: Spine [employer] Spine [id number] / / Procedures * XR CERVICAL SPINE [...] 06/21/2022) Performed for Coffee ground emesis * [place] ESOPHAGEAL CAPSULE ENDOSCOPY(Performed 06/21/2022) Performed for Coffee ground emesis * [place] ED EGD FLEX TRANSORAL DX(Performed 06/21/2022) Performed [...] closed fractures of facial bone, initial encounter ([facility]) * GLUCOSE - POINT OF CARE(Performed 02/15/2022) [...] SPINE 2 OR 3VW (06/04/2023 1:57 PM CUFF SETTER LOCKSTITCH) Only the most recent of7 resultswithin the time period is included. Anatomical Region Laterality Modality Spine Radiographic Vivian ging 06/04/2023 1:57 PM CUFF SETTER LOCKSTITCH Impressions 06/04/2023 2:28 PM CUFF SETTER LOCKSTITCH IMPRESSION: Redemonstration of posterior instrumented spinal fusion hardware of C4-T2 with unchanged alignment. Report dictated by Joey Herman MD, (residential roofer). I, Petar Spears MD have personally reviewed and interpreted this examination/study. > Interpreting Provider: Petar Spears MD on 06/04/2023 2:28 PM Narrative 06/04/2023 2:28 PM CUFF SETTER LOCKSTITCH PROCEDURE: ??XR CERVICAL SPINE 2 OR 3VW, DATE/TIME OF EXAM: ??06/04/2023 1:57 PM, LOCATION ??[facility] INDICATION: Z98.1: S/P cervical spinal fusion [...] 3VW, DATE/TIME OF EXAM: 41:57 PM, LOCATION [facility] INDICATION: Z98.1: S/P cervical spinal fusion [...] alignment. Report dictated by Joey Herman MD, (residential roofer). Petar Narvaez MD have personally reviewed and [...] unchanged in alignment. > Dictated by Carlos Mmcanus MD I, Stephen Huebner, MD have personally [...] MD on 07/18/2022 11:31 AM Lyla Blackwell GENERAL SERVICE TECHNICIAN-FINANCIAL REPORTING ANALYST DIAGNOSTIC IMAG ING ORDERABLES * (ABNORMAL) CBC W/O DIFFERENTIAL (06/23/2022 3:47 AM CDT) Only the most recent of11 resultswithin the time period is included. WBC 7.7 3.5 - 10.5 10? 3 /uL 06/23/2022 4:17 AM CDT [facility] RBC 2.66(L) 3.80 - 5.20 10? 6 /uL 06/23/2022 4:17 AM CDT [facility] Hemoglobin 8.0(L) 12.0 - 15.6 g/dL 06/23/2022 4:17 AM [facility] Hematocrit 24.2(L) 35.0 - 45.0 % 06/23/2022 4:17 AM [facility] MCV 91.0 80.7 - 98.3 fL 06/23/2022 4:17 AM [facility] MCH 30.1 26.7 - 34.0 pg 06/23/2022 4:17 AM [facility] MCHC 33.1 30.8 - 35.9 g/dL 06/23/2022 4:17 AM [facility] RDW-SD 45.0 36.0 - 50.0 fL 06/23/2022 4:17 AM [facility] RDW-CV 13.7 11.2 - 14.8 % 06/23/2022 4:17 AM [facility] Platelet Count 305 150 - 400 10? 3 /uL 06/23/2022 4:17 AM [facility] MPV 9.7 9.4 - 12.9 fL 06/23/2022 4:17 AM [facility] nRBC Absolute 0.00 0 10? 3 /uL 06/23/2022 4:17 AM [facility] nRBC Auto 0.0 0 /100 WBC 06/23/2022 4:17 AM [facility] Blood BLOOD SPECIMEN / Unknown Lab Venipuncture / Unknown 06/23/2022 3:47 AM CDT 06/23/2022 4:10 AM CDT Ori Iyer PA-C LAB - HEMATOLOGY OR DERABLES [facility] [address] [place] [address], [facility] [phone] * (ABNORMAL) BASIC METABOLIC PANEL (CALCIUM TOTAL) (06/23/2022 3:06 AM CDT) Only the most recent of10 resultswithin the time period is included. BUN 10 7 - 26 mg/dL 06/23/2022 4:38 AM [facility] Creatinine 1.09(H) 0.56 - 0.96 mg/dL 06/23/2022 4:38 AM [facility] Sodium 131(L) 136 - 145 mmol/L 06/23/2022 4:38 AM [facility] Potassium 4.2 3.5 - 4.5 mmol/L 06/23/2022 4:38 AM [facility] Chloride 100 98 - 107 mmol/L 06/23/2022 4:38 AM [facility] CO2 22 22 - 29 mmol/L 06/23/2022 4:38 AM [facility] Glucose 111 70 - 115 mg/dL 06/23/2022 4:38 AM [facility] Calcium 8.2(L) 8.4 - 10.2 mg/dL 06/23/2022 4:38 AM [facility] Anion Gap 13 8 - 18 06/23/2022 4:38 AM [facility] BUN/Creatinine Ratio 9 7 - 23 06/23/2022 4:38 AM [facility] Osmolality Calculated 272 270 - 300 mOsm/kg 06/23/2022 4:38 AM [facility] eGFR by CKD-EPI 54(L) >=90 mL/min/1.7 3 m2 06/23/2022 4:38 AM [facility] Blood BLOOD SPECIMEN / Unknown Lab Venipuncture / Unknown 06/23/2022 3:06 AM CDT 06/23/2022 4:03 AM T Anabell Hernandez PA-C LAB - CHEMISTRY ORD ERABLES [facility] [address] [place] [address], [facility] [phone] * MAGNESIUM BLOOD (06/23/2022 3:06 AM CDT) Only the most recent of6 resultswithin the time period is included. Magnesium 2.3 1.6 - 2.6 mg/dL 06/23/2022 4:41 AM [facility] Blood BLOOD SPECIMEN / Unknown Lab Venipuncture / Unknown 06/23/2022 3:06 AM CDT 06/23/2022 4:03 AM CDT Anabell Hernandez PA-C LAB - CHEMISTRY ORD ERABLES Performing Organization Address City/[facility]/ZIP Co de Phone Number [facility] [address] [place] [phone], [facility] [phone] * GLUCOSE - POINT OF CARE (06/22/2022 4:11 PM CDT) Only the most recent of28 resultswithin the time period is included. Glucose WB/POC 105 70 - 115 mg/dL 06/22/2022 4:12 PM CDT [facility] Specimen Type Arterial 06/22/2022 4:12 PM CDT [facility] Blood BLOOD SPECIMEN / Unknown 06/22/2022 4:11 PM CDT 06/22/2022 4:12 PM CDT Abeba Will DO LAB - POINT OF CARE ORDERABLES Performing Organization Address [facility]/ZIP Co de Phone Number [address] [address], [place] [phone] * (ABNORMAL) RENAL FUNCTION PANEL (06/22/2022 2:34 AM CDT) Only the most recent of2 resultswithin the time period is included. BUN 13 7 - 26 mg/dL 06/22/2022 3:29 AM [facility] Creatinine 1.07(H) 0.56 - 0.96 mg/dL 06/22/2022 3:29 AM [facility] Sodium 132(L) 136 - 145 mmol/L 06/22/2022 3:29 AM T [facility] Potassium 3.8 3.5 - 4.5 mmol/L 06/22/2022 3:29 AM [facility] Chloride 99 98 - 107 mmol/L 06/22/2022 3:29 AM [facility] CO2 25 22 - 29 mmol/L 06/22/2022 3:29 AM T [facility] Glucose 126(H) 70 - 115 mg/dL 06/22/2022 3:29 AM T [facility] Albumin 2.8(L) 3.4 - 5.0 g/dL 06/22/2022 3:29 AM [facility] Calcium 8.5 8.4 - 10.2 mg/dL 06/22/2022 3:29 AM [facility] Phosphorus 2.8(L) 2.9 - 5.1 mg/dL 06/22/2022 3:29 AM [facility] Anion Gap 12 8 - 18 06/22/2022 3:29 AM [facility] BUN/Creatinine Ratio 12 7 - 23 06/22/2022 3:29 AM [facility] Osmolality Calculated 276 270 - 300 mOsm/kg 06/22/2022 3:29 AM [facility] eGFR by CKD-EPI 55(L) >=90 mL/min/1.7 3 m2 06/22/2022 3:29 AM [facility] Blood BLOOD SPECIMEN / Unknown Lab Venipuncture / Unknown 06/22/2022 2:34 AM CDT 06/22/2022 3:02 AM CDT Ori Iyer PA-C LAB - CHEMISTRY ORD ERABLES [facility] [address] [place] [phone], [facility] [phone] * CORTISOL BLOOD AM (06/22/2022 2:34 AM CDT) Only the most recent of4 resultswithin the time period is included. Cortisol AM 14.3 3.7 - 19.4 ug/dL 06/22/2022 3:49 AM CDT [facility] Blood BLOOD SPECIMEN / Unknown Lab Venipuncture / Unknown 06/22/2022 2:34 AM CDT 06/22/2022 3:02 AM CDT Narrative [facility] - 06/22/2022 3:49 AM CDT Normal cortisol levels are generally highest in the morning hours and lowest from late evening through the tube winder hand 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 ??The PM measurements of cortisol run approximately one-half to one-third of the AM values. Ori Iyer PA-C LAB - CHEMISTRY ORD ERABLES [facility] [address] [place] [address], [facility] [phone] * PATHOLOGY TISSUE (06/21/2022 4:40 PM CDT) Case Report Surgical Pathology Report ? Case: [id number] ? Authorizing Provider: ??Carmen Morales MD ? Collected: ? 06/21/2022 04:40 PM ? Ordering Location: ? [facility] ?Received: ?06/22/2022 08:59 AM ? Pathologist: ? Hansa Gusman MD ? Specimen: ?Small Bowel, small bowel biopsy r/o celiac ? 06/25/2022 2:27 PM CDT [facility] LAB Final Diagnosis Small intestine, small bowel, biopsy (A): - No histopathologic abnormality - Intact villous and crypt architecture without increased intraepithelial lymphocytes 06/25/2022 2:27 PM CDT [facility] Microscopic Description and Comment Microscopic examination substantiates the final diagnosis. 06/25/2022 2:27 PM T [facility] LAB Clinical History The patient is a 72-year-old woman presented with coffee-ground emesis who underwent upper GI endoscopy. 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 Duodenal bulb erythema, biopsied for evaluation of celiac disease. 06/25/2022 2:27 PM T [facility] PATH[facility] LAB Gross Description The requisition and specimen(s) are identified with the patient's name Kandace Cole. Received in formalin, specimen A , are 5 pink-freeman tissues, 0.3-0.9 cm in greatest dimension and 2.3 x 0.3 x 0.2 cm in aggregate, submitted in toto in cassette A1. DF 06/25/2022 2:27 PM T [facility] PATH[facility] LAB Disclaimer The performance characteristics of all immunohistochemical and indirect immunofluorescence stains (if any) cited in this report were determined by the Histopathology Laboratory of [facility]. Some of these tests were developed [...] attending (teaching) pathologist. 06/25/2022 2:27 PM CDT [facility] LAB Embedded Images 06/25/2022 2:27 PM T [facility] LAB Resection without Tumor SMALL BOWEL RESECTION SPECIMEN / Unknown 06/21/2022 4:40 PM CDT 06/22/2022 8:59 AM CDT Comment:Pre-op diagnosis: Coffee ground emesis Carmen Morales MD LAB - PATHOLOGY/CYTO LOGY ORDERABLES [facility] [address] [phone] * EGD (06/21/2022 4:24 PM CDT) Report [...] Procedure Code(s): ? --- Professional --- ? 04811, Esophagogastroduode noscopy, flexible, transoral; with biopsy, ? single or multiple Diagnosis Code(s): ?--- Professional --- ?K22.70, Ferrell's esophagus without dysplasia ?K92.0, Hematemesis CPT copyright 2019 [employer]. All rights reserved. The codes documented in this report are preliminary and upon mobility architect review may be revised to meet current compliance requirements. Carmen Morales, 06/21/2022 5:01:11 PM Note Initiated On: 06/21/2022 4:24 PM Number of Addenda: 0 ? [facility] ? [address] [place] [address] [facility] 06/21/2022 4:24 PM CDT Abeba Will DO GI PROCEDURE ORDERAB LES [facility] * CARDIAC EKG ORDER (06/21/2022 [...] 10.5 10? 3 /uL 06/21/2022 2:59 AM [facility] RBC 2.77(L) 3.80 - 5.20 10? 6 /uL 06/21/2022 2:59 AM [facility] Hemoglobin 8.3(L) 12.0 - 15.6 g/dL 06/21/2022 2:59 AM [facility] Hematocrit 25.9(L) 35.0 - 45.0 % 06/21/2022 2:59 AM [facility] MCV 93.5 80.7 - 98.3 fL 06/21/2022 2:59 AM [facility] MCH 30.0 26.7 - 34.0 pg 06/21/2022 2:59 AM [facility] MCHC 32.0 30.8 - 35.9 g/dL 06/21/2022 2:59 AM [facility] RDW-SD 46.8 36.0 - 50.0 fL 06/21/2022 2:59 AM [facility] RDW-CV 13.8 11.2 - 14.8 % 06/21/2022 2:59 AM [facility] Platelet Count 415(H) 150 - 400 10? 3 /uL 06/21/2022 2:59 AM [facility] MPV 9.6 9.4 - 12.9 fL 06/21/2022 2:59 AM [facility] nRBC Absolute 0.00 0 10? 3 /uL 06/21/2022 2:59 AM [facility] nRBC Auto 0.0 0 /100 WBC 06/21/2022 2:59 AM [facility] Neutrophils % 68.7 35.0 - 70.0 % 06/21/2022 2:59 AM [facility] Lymphocytes % 17.2(L) 20.0 - 43.0 % 06/21/2022 2:59 AM [facility] Monocytes % 10.7 5.0 - 13.0 % 06/21/2022 2:59 AM [facility] Eosinophils % 2.3 0.0 - 6.0 % 06/21/2022 2:59 AM [facility] Basophil % 0.6 0.0 - 2.0 % 06/21/2022 2:59 AM [facility] Neutrophils Absolute 5.47 1.60 - 7.00 10? 3 /uL 06/21/2022 2:59 AM [facility] Lymphocyte Absolute 1.37 1.10 - 3.90 10? 3 /uL 06/21/2022 2:59 AM [facility] Monocytes Absolute 0.85 0.26 - 1.07 10? 3 /uL 06/21/2022 2:59 AM [facility] Eosinophils Absolute 0.18 0.00 - 0.47 10? 3 /uL 06/21/2022 2:59 AM [facility] Basophils Absolute 0.05 0.00 - 0.08 10? 3 /uL 06/21/2022 2:59 AM [facility] Immature Granulocytes % 0.5 0.0 - 1.0 % 06/21/2022 2:59 AM [facility] Immature Granulocytes Absolute 0.04 06/21/2022 2:59 AM [facility] Blood BLOOD SPECIMEN / Unknown Lab Venipuncture / Unknown 06/21/2022 2:03 AM CDT 06/21/2022 2:39 AM T Deepa Georges MD LAB - HEMATOLOGY ORD ERABLES [facility] [address] [place] [address], [facility] [phone] * (ABNORMAL) COMPREHENSIVE METABOLIC PANEL (06/21/2022 2:03 AM [facility]) Only the most recent of3 resultswithin the time period is included. BUN 14 7 - 26 mg/dL 06/21/2022 3:05 AM [facility] Creatinine 1.11(H) 0.56 - 0.96 mg/dL 06/21/2022 3:05 AM [facility] Sodium 134(L) 136 - 145 mmol/L 06/21/2022 3:05 AM [facility] Potassium 4.2 3.5 - 4.5 mmol/L 06/21/2022 3:05 AM [facility] Chloride 96(L) 98 - 107 mmol/L 06/21/2022 3:05 AM [facility] CO2 25 22 - 29 mmol/L 06/21/2022 3:05 AM [facility] Glucose 54(L) 70 - 115 mg/dL 06/21/2022 3:05 AM [facility] Calcium 9.5 8.4 - 10.2 mg/dL 06/21/2022 3:05 AM [facility] Protein Total 6.0 6.0 - 8.3 g/dL 06/21/2022 3:05 AM [facility] Albumin 3.3(L) 3.4 - 5.0 g/dL 06/21/2022 3:05 AM [facility] Bilirubin Total 0.7 0.2 - 1.2 mg/dL 06/21/2022 3:05 AM [facility] Alkaline Phosphatase 62 40 - 150 U/L 06/21/2022 3:05 AM [facility] ALT 10 5 - 55 U/L 06/21/2022 3:05 AM [facility] AST 15 5 - 34 U/L 06/21/2022 3:05 AM [facility] Anion Gap 17 8 - 18 06/21/2022 3:05 AM [facility] BUN/Creatinine Ratio 13 7 - 23 06/21/2022 3:05 AM [facility] Osmolality Calculated 276 270 - 300 mOsm/kg 06/21/2022 3:05 AM [facility] Albumin/Globulin Ratio 1.2 1.1 - 2.3 06/21/2022 3:05 AM [facility] eGFR by CKD-EPI 53(L) >=90 mL/min/1.7 3 m2 06/21/2022 3:05 AM [facility] Blood BLOOD SPECIMEN / Unknown Lab Venipuncture / Unknown 06/21/2022 2:03 AM CDT 06/21/2022 2:39 AM CDT Deepa Georges MD LAB - CHEMISTRY CHELO QUIGLEY [facility] Organization Address City/State/ZIP Co de Phone Number [facility] [address] [place] [address], [facility] [phone] * (ABNORMAL) URINALYSIS REFLEX TO MICROSCOPIC NO CULTURE (06/21/2022 12:50 AM T) Only the most recent of2 resultswithin the time period is included. Color UA Yellow Straw, Yellow 06/21/2022 1:04 AM [facility] Clarity UA Clear Clear 06/21/2022 1:04 AM [facility] Specific [place] UA 1.048(H) 1.005 - 1.030 06/21/2022 1:04 AM [facility] pH UA 7.0 5.0 - 8.0 pH 06/21/2022 1:04 AM [facility] Protein UA Negative Negative 06/21/2022 1:04 AM [facility] Glucose UA Negative Negative 06/21/2022 1:04 AM [facility] Ketone UA 1+(A) Negative 06/21/2022 1:04 AM [facility] Bilirubin UA Negative Negative 06/21/2022 1:04 AM [facility] Blood UA Negative Negative 06/21/2022 1:04 AM [facility] Nitrite UA Negative Negative 06/21/2022 1:04 AM [facility] Leukocyte Esterase Trace(A) Negative 06/21/2022 1:04 AM [facility] Urobilinogen UA Negative Negative mg/dL 06/21/2022 1:04 AM CDT [facility] RBC UA 0-2 None Seen, 0-2, [...] [facility] - 06/21/2022 1:04 AM CDT Jacki Balbuena PA-C LAB - URINALYSIS OR DERABLES [address] [address], [place] [phone] * (ABNORMAL) HEMOGLOBIN (06/20/2022 10:18 PM CDT) Hemoglobin 8.5(L) 12.0 - 15.6 g/dL 06/20/2022 10:42 PM CDT [facility] Blood BLOOD SPECIMEN / Unknown Lab Venipuncture / Unknown 06/20/2022 10:18 PM CDT 06/20/2022 10:39 PM CDT Deepa Georges MD LAB - HEMATOLOGY ORD ERABLES [address] [address], [place] [phone] * B-TYPE NATRIURETIC PEPTIDE (06/20/2022 10:18 PM [...] - CHEMISTRY CHELO QUIGLEY Performing Organization Address [facility] de Phone Number [facility] [address] [place] [address], [facility] [phone] * CT ANGIO ABDOMEN PELVIS (06/20/2022 5:05 [...] etiology. > Dictated by Sherlyn Hopkins DO (residential roofer). I, Chaim Martins have personally reviewed and interpreted this examination/study. > Interpreting Provider: Chaim Martins on 06/20/2022 10:47 PM Narrative 06/20/2022 10:47 PM CDT PROCEDURE: ??CT ANGIO ABDOMEN PELVIS, DATE/TIME OF EXAM: ??06/20/2022 5:05 PM, LOCATION ??[facility] INDICATION: R10.12: Abdominal pain, left upper [...] PELVIS, DATE/TIME OF EXAM: 06/20/2022 5:05PM, LOCATION [facility] INDICATION: R10.12: Abdominal pain, left upper [...] etiology. > Dictated by Sherlyn Hopkins DO (residential roofer). I, Chaim Martins have personally reviewed and interpreted this examination/study. > Interpreting Provider: Chaim Martnis on 06/20/2022 10:47 PM Adolph Mckinney MD CT ORDERABLES * XR CHEST 2VW (06/20/2022 3:02 PM CDT) Anatomical Region Laterality Modality Chest Radiographic Vivian ging 06/20/2022 3:13 PM CDT Narrative 06/20/2022 3:49 PM CDT PROCEDURE: ??XR CHEST 2VW, DATE/TIME OF EXAM: ??06/20/2022 3:03 PM, LOCATION [facility] INDICATION: R06.02: Shortness of breath ADDITIONAL [...] heads. Report dictated by Yasir Pierre MD (residential roofer). Haroldo Narvaez MD have personally reviewed and interpreted this examination/study. > Interpreting Provider: Haroldo Ball MD on 06/20/2022 3:49 PM Procedure Note Haroldo Ball MD - 06/20/2022 PROCEDURE: XR CHEST 2VW, DATE/TIME OF EXAM: 06/20/2022 3:03 PM, LOCATION [facility] INDICATION: R06.02: Shortness of breath ADDITIONAL [...] heads. Report dictated by Yasir Pierre MD (residential roofer). Haroldo Narvaez MD have personally reviewed and interpreted this examination/study. > Interpreting Provider: Haroldo Ball MD on 06/20/2022 3:49 PM Adolph Mckinney MD DIAGNOSTIC IMAGING ORDERABLES * PT-INR [facility] (06/20/2022 2:05 PM CDT) PT 13.4 12.1 - 14.8 Seconds 06/20/2022 2:48 PM CDT [facility] INR 1.0 See Comment 06/20/2022 2:48 PM CDT [facility] Comment:The suggested therap eutic range for standard coumadin (warfarin) therapy is an INR of 2.0-3.0. For high-risk patients (Mechanical Mitral Valve Prosthesis, etc.), the suggested prophylactic therapeutic range is an INR of 2.5-3.5. Blood BLOOD SPECIMEN / Unknown Venipuncture / Unknown 06/20/2022 2:05 PM CDT 06/20/2022 2:07 PM CDT Adolph Mckinney MD LAB - COAGULATION ORDERABLES Performing Organization Address [facility]/ZIP Co de Phone Number [address] [id number], [facility] [phone] * TYPE + SCREEN PANEL (06/20/2022 2:05 PM CDT) Only the most recent of3 resultswithin the time period is included. Antibody Screen NEG 2:53 PM CDT [facility] ABO Rh A POS 06/20/2022 2:53 PM CDT [facility] Blood Bank BLOOD SPECIMEN / Unknown Venipuncture / Unknown 06/20/2022 2:05 PM CDT 06/20/2022 2:08 PM CDT Adolph Mckinney MD LAB - BLOOD BANK O RDERABLES Performing Organization Address [facility] Co de Phone Number [facility] [address] [place] [id number], [facility] [phone] * LIPASE BLOOD (06/20/2022 2:05 PM CDT) Lipase 18 8 - 78 U/L 06/20/2022 2:50 PM CDT [facility] Blood BLOOD SPECIMEN / Unknown Venipuncture / Unknown 06/20/2022 2:05 PM CDT 06/20/2022 2:23 PM CDT Narrative [facility] - 06/20/2022 2:50 PM CDT Lipase results from the [employer] Alinity analyzer may not be comparable with other methodologies. Adolph Mckinney MD LAB - CHEMISTRY OR DERABLES [address] [address], [place] [phone] * LACTIC ACID BLOOD (06/20/2022 2:05 PM CDT) [facility] Lactic Acid-Stat 1.1 <=2.0 mmol/L 06/20/2022 2:48 PM CDT [facility] Blood BLOOD SPECIMEN / Unknown Venipuncture / Unknown 06/20/2022 2:05 PM CDT 06/20/2022 2:23 PM CDT Adolph Mckinney MD LAB - CHEMISTRY OR DERABLES Performing Organization Address [facility]/ZIP Co de Phone Number [address] [address], [place] [phone] * TROPONIN-I HIGH SENSITIVE REFLEX 1HOUR (06/20/2022 1:05 PM CDT) [facility] Troponin I High Sensitive 8 <=14 ng/L 06/20/2022 1:59 PM CDT [facility] Delta Troponin I HS 06/20/2022 1:59 PM CDT [facility] Comment:Delta value intentio anil not calculated. Baseline to 1 hour specimen collection interval exceeded. Blood BLOOD SPECIMEN / Unknown Venipuncture / Unknown 06/20/2022 1:05 PM CDT 06/20/2022 1:23 PM CDT Jacki Balbuena PA-C LAB - CHEMISTRY ORD ERABLES [address] [address], [place] [phone] * TROPONIN-I HIGH SENSITIVE BASELINE + 1HR (06/20/2022 9:49 AM CDT) [facility] Troponin I High Sensitive 7 <=14 ng/L 06/20/2022 10:39 AM CDT [facility] Blood BLOOD SPECIMEN / Unknown Venipuncture / Unknown 06/20/2022 9:49 AM CDT 06/20/2022 9:55 AM CDT Jacki Balbuena PA-C LAB - CHEMISTRY ORD ERABLES Performing Organization Address City/[facility]/ZIP Co de Phone Number [facility] [address] [place] [address], [facility] [phone] * EKG 12-LEAD (06/20/2022 9:40 AM CDT) Only the most recent of2 resultswithin the time period is included. Ventricular Rate 88 BPM SL MUSE Atrial Rate 88 BPM [facility] P-R Interval 176 ms [facility] QRS Duration ms 70 ms [facility] Q-T Interval ms 348 ms [facility] QTC Calculation (Bezet) 421 ms [facility] Calculated P [place] 75 degrees SL MUSE Calculated R [place] 55 degrees [facility] MUSE Calculated T [place] 74 degrees [facility] MUSE Interpretation EKG NORMAL SINUS RHYTHM NORMAL ECG WHEN COMPARED WITH ECG OF 15-FEB-2022 00:55, VENT. RATE HAS INCREASED by 15 bpm Confirmed by BRIEN KEARNS MD ([id number]) on 06/20/2022 1:46:36 PM [facility] 06/20/2022 9:40 AM CDT 06/20/2022 1:46 PM CDT Jacki Balbuena PA-C ECG ORDERABLES Performing Organization Address [facility] Co de Phone Number [facility] * (ABNORMAL) PHOSPHORUS BLOOD (06/08/2022 2:13 AM CUFF SETTER LOCKSTITCH) Only the most recent of3 resultswithin the time period is included. Phosphorus 2.5(L) 2.9 - 5.1 mg/dL 06/08/2022 3:12 AM CUFF SETTER LOCKSTITCH [facility] Blood BLOOD SPECIMEN / Unknown Lab Venipuncture / Unknown 06/08/2022 2:13 AM CUFF SETTER LOCKSTITCH 06/08/2022 2:44 AM CUFF SETTER LOCKSTITCH Ama Gonzalez MD LAB - CHEMISTRY ORDERABLES [facility] [address] [place] [address], [place] [phone] * TRANSFUSE RED BLOOD CELL LEUKOREDUCED UNIT(S) (06/06/2022 12:20 PM CUFF SETTER LOCKSTITCH) Ama Gonzalez MD NURSING - BLOOD PROD TRANSFUSION * PREPARE (CROSSMATCH) RBC UNIT(S), 1 Units (06/06/2022 9:36 AM CUFF SETTER LOCKSTITCH) Unit Description AS1 LR PRBC [facility] Unit ABO A [facility] Unit Rh POS [facility] Product Number R02 [facility] Unit Donor # [id number] [facility] Unit Status transfused [facility] Product Code [id number] [facility] Blood Type Barcode 6200 [facility] Expiration Date [id number] S BLOOD BANK LAB Blood Bank BLOOD SPECIMEN / Unknown 06/04/2022 6:44 AM CUFF SETTER LOCKSTITCH Ama Gonzalez MD LAB - BLOOD BANK ORDERABLES Performing Organization Address City/[facility]/ZIP Co de Phone Number [facility] [address] [place] [address], [facility] [phone] * PTH INTACT W/O CALCIUM (06/06/2022 3:07 AM CUFF SETTER LOCKSTITCH) Pathologist [facility] PTH Intact 72.1 8.0 - 77.0 pg/mL 06/06/2022 4:04 AM CUFF SETTER LOCKSTITCH [facility] Blood BLOOD SPECIMEN / Unknown Lab Venipuncture / Unknown 06/06/2022 3:07 AM CUFF SETTER LOCKSTITCH 06/06/2022 3:32 AM CUFF SETTER LOCKSTITCH Deon Taylor MD LAB - CHEMISTRY CELESTEE SORAIDA [facility] [address] [place] [address], [place] [phone] * HEMOGLOBIN A1C (06/06/2022 3:07 AM CUFF SETTER LOCKSTITCH) Only the most recent of2 resultswithin the [...] to evaluate metabolic control in patients. Reference: [place] [employer], Standards of Care in Diabetes -2020 In patients 70 years and older consider HbA1c target range of 7.0-7.5% (Reference: Oswaldo Liz et al. JAMDA. 2012) The Sebia assay for the measurement of HbA1c is a National Glycohemoglobin Standardization Program (NGSP) certified method. Blood BLOOD SPECIMEN / Unknown Lab Venipuncture / Unknown 06/06/2022 3:07 AM CUFF SETTER LOCKSTITCH 06/06/2022 3:28 AM [facility] Ama Gonzalez MD LAB - CHEMISTRY ORDERABLES Performing Organization Address [facility] de Phone Number [facility] [address] [place] [address], [facility] [phone] * VITAMIN D 25-HYDROXY (06/06/2022 3:07 AM [facility]) Pathologist [facility] Vitamin D, 25 Hydroxy 53.0 30.0 - 80.0 ng/mL 06/06/2022 4:35 AM [facility] Comment: The recommendations for 25-Hydroxy Vitamin [...] Lab Venipuncture / Unknown 06/06/2022 3:07 AM CUFF SETTER LOCKSTITCH 06/06/2022 3:29 AM CUFF SETTER LOCKSTITCH Deon Taylor MD LAB - CHEMISTRY CHELO QUIGLEY Performing Organization Address [facility]/ZIP Co de Phone Number [facility] [address] [place] [address], [facility] [phone] * FOLATE (06/06/2022 3:07 AM CUFF SETTER LOCKSTITCH) Folate 9.4 7.0 - 31.4 ng/mL 06/06/2022 4:35 AM CUFF SETTER LOCKSTITCH [facility] Blood BLOOD SPECIMEN / Unknown Lab Venipuncture / Unknown 06/06/2022 3:07 AM CUFF SETTER LOCKSTITCH 06/06/2022 3:29 AM CUFF SETTER LOCKSTITCH Ama Gonzalez MD LAB - CHEMISTRY ORDERABLES Performing Organization Address [facility]/ZIP Co de Phone Number [facility] [address] [place] [address], [place] [phone] * VITAMIN B12 (06/06/2022 3:07 AM CUFF SETTER LOCKSTITCH) Vitamin B12 382 213 - 816 pg/mL 06/06/2022 4:35 AM CUFF SETTER LOCKSTITCH [facility] Blood BLOOD SPECIMEN / Unknown Lab Venipuncture / Unknown 06/06/2022 3:07 AM CUFF SETTER LOCKSTITCH 06/06/2022 3:29 AM CUFF SETTER LOCKSTITCH Ama Gonzalez MD LAB - CHEMISTRY ORDERABLES [address] [address], [place] [phone] * (ABNORMAL) IRON + TRANSFERRIN PANEL (06/06/2022 3:07 AM CUFF SETTER LOCKSTITCH) Iron 20(L) 40 - 150 ug/dL 06/06/2022 3:53 AM [facility] Transferrin 162(L) 174 - 382 mg/dL 06/06/2022 3:53 AM [facility] Transferrin Saturation % 10(L) 16 - 50 % 06/06/2022 3:53 AM [facility] TIBC Calculated 203(L) 240 - 450 ug/dL 06/06/2022 3:53 AM [facility] Blood BLOOD SPECIMEN / Unknown Lab Venipuncture / Unknown 06/06/2022 3:07 AM CUFF SETTER LOCKSTITCH 06/06/2022 3:25 AM CUFF SETTER LOCKSTITCH Ama Gonzalez MD LAB - CHEMISTRY ORDERABLES [address] [address], [place] [phone] * FERRITIN (06/06/2022 3:07 AM CUFF SETTER LOCKSTITCH) Ferritin 94 13 - 204 ng/mL 06/06/2022 4:10 AM CUFF SETTER LOCKSTITCH [facility] Blood BLOOD SPECIMEN / Unknown Lab Venipuncture / Unknown 06/06/2022 3:07 AM CUFF SETTER LOCKSTITCH 06/06/2022 3:25 AM CUFF SETTER LOCKSTITCH Ama Gonzalez MD LAB - CHEMISTRY ORDERABLES [address] [address], [place] [phone] * FL JOSÉ LUIS SURGERY (06/04/2022 11:30 AM CUFF SETTER LOCKSTITCH) Narrative [facility] - 06/04/2022 12:52 PM CUFF SETTER LOCKSTITCH Fluoroscopy was used for this exam in the OR. Please see the Operative report. Deon Taylor MD FLUOROSCOPY ORDERABL ES [facility] * ETT LINE PERFORMABLE (06/04/2022 9:09 AM CUFF SETTER LOCKSTITCH) Narrative Marcos Rojas Anes Asst - 06/04/2022 9:09 AM CUFF SETTER LOCKSTITCH Marcos Rojas Anes Asst ? 06/04/2022 ??9:11 AM Endotracheal Tube Placement: ? Patient Location: OR. Intubation Event Date/Time: ??06/04/2022 7:44 AM Procedure: intubation (11291). Procedure Section: ?? Sedation: under general anesthesia. [...] * ARTERIAL LINE PERFORMABLE (06/04/2022 9:08 AM CUFF SETTER LOCKSTITCH) Narrative Marcos Rojas Anes Asst - 06/04/2022 9:08 AM CUFF SETTER LOCKSTITCH Marcos Rojas Anes Asst ? 06/04/2022 ??9:08 AM Arterial Line Placement Procedure Note Patient Location: OR. Procedure: Arterial Line (90353). Procedure Section ?? Indications: continuous blood pressure [...] * SODIUM URINE RANDOM (02/17/2022 2:08 PM CUFF SETTER LOCKSTITCH) Sodium Urine 55 Not Established mmol/L 02/17/2022 2:30 PM CUFF SETTER LOCKSTITCH [facility] Urine URINE SPECIMEN OBTAINED BY CLEAN CATCH PROCEDURE / Unknown Collection / Unknown 02/17/2022 2:08 PM CUFF SETTER LOCKSTITCH 02/17/2022 2:13 PM CUFF SETTER LOCKSTITCH Radha Flores PA-C LAB - URINE CHEM ISTRY ORDERABLES Performing Organization Address [facility]/ZIP Co de Phone Number [address] [address], [place] [phone] * OSMOLALITY URINE (02/17/2022 2:08 PM CUFF SETTER LOCKSTITCH) Osmolality Urine 234 50 - 1,200 mOsm/kg 02/17/2022 3:23 PM CUFF SETTER LOCKSTITCH [facility] Urine URINE SPECIMEN OBTAINED BY CLEAN CATCH PROCEDURE / Unknown Collection / Unknown 02/17/2022 2:08 PM CUFF SETTER LOCKSTITCH 02/17/2022 2:13 PM CUFF SETTER LOCKSTITCH Narrative [facility] - 02/17/2022 3:23 PM CUFF SETTER LOCKSTITCH QRY Radha Flores PA-C LAB - URINE CHEM ISTRY ORDERABLES Performing Organization Address City/[facility]/ZIP Co de Phone Number [address] [address], [place] [phone] * MRI CERVICAL SPINE WO CONTRAST (02/16/2022 7:19 PM CUFF SETTER LOCKSTITCH) Anatomical Region Laterality Modality Pelvis Magnetic Resonan ce 02/18/2022 1:46 PM CUFF SETTER LOCKSTITCH Impressions 02/18/2022 2:03 PM CUFF SETTER LOCKSTITCH IMPRESSION: 1. Degenerative changes of the spine [...] 02/18/2022 2:03 PM Narrative 02/18/2022 2:03 PM CUFF SETTER LOCKSTITCH PROCEDURE: ??MRI CERVICAL SPINE WO CONTRAST, DATE/TIME OF EXAM: ??02/16/2022 7:20 PM, LOCATION ??[facility] INDICATION: M50.30: Degeneration of cervical intervertebral [...] CONTRAST, DATE/TIME OF EXAM:02/16/2022 7:20 PM, LOCATION [facility] INDICATION: M50.30: Degeneration of cervical intervertebral [...] TSH REFLEX FREE T4 (02/16/2022 7:57 AM CUFF SETTER LOCKSTITCH) Only the most recent of2 resultswithin the time period is included. TSH 1.522 0.350 - 4.940 uIU/mL 02/16/2022 9:01 AM CUFF SETTER LOCKSTITCH [facility] Blood BLOOD SPECIMEN / Unknown Lab Venipuncture / Unknown 02/16/2022 7:57 AM CUFF SETTER LOCKSTITCH 02/16/2022 8:15 AM CUFF SETTER LOCKSTITCH Dagoberto Ordoñez MD LAB - CHEMISTRY ORDERABLES [facility] [address] [address], [facility] [phone] * CT CERVICAL SPINE WO CONTRAST (02/15/2022 10:41 PM CUFF SETTER LOCKSTITCH) Anatomical Region Laterality Modality Spine Computed Tomogra phy 02/16/2022 2:09 AM CUFF SETTER LOCKSTITCH Impressions 02/16/2022 2:29 AM CUFF SETTER LOCKSTITCH IMPRESSION: 1.No acute fracture or traumatic malalignment [...] 02/16/2022 2:29 AM Narrative 02/16/2022 2:29 AM CUFF SETTER LOCKSTITCH PROCEDURE: ??CT CERVICAL SPINE WO CONTRAST, DATE/TIME OF EXAM: ??02/15/2022 10:41 PM, LOCATION ??[facility] INDICATION: S02.92XA: Multiple closed fractures of facial bone, initial encounter ([facility]) ADDITIONAL CLINICAL INFORMATION: Ordering Provider Reason [...] CONTRAST, DATE/TIME OF EXAM:02/15/2022 10:41 PM, LOCATION [facility] INDICATION: S02.92XA: Multiple closed fractures of facial bone, initial encounter ([facility]) ADDITIONAL CLINICAL INFORMATION: Ordering Provider Reason [...] left C3-C5 facets, right C3-C4 facets, and C3-D8scbjksz processes. DISCS: Osseous fusion of the C3-C5 [...] in moderate spinal canal stenosis at the C5-W2mpqeh and mild spinal canal stenosis at the C3-C4, C6-C7, and C7-T1 levels. 3.Severe bilateral neuroforaminal narrowing at the C5-C6 level. > Interpreting Provider: Barbara Wallace DR on 02/16/2022 2:29 AM Radha Flores PA-C CT ORDERABLES * SARS-COV-2 (COVID-19)+INFLU A+B PCR RAPID (02/15/2022 3:07 PM CUFF SETTER LOCKSTITCH) COVID-19 PCR Not detected Not detected 02/16/20 3:59 PM CUFF SETTER LOCKSTITCH [facility] Influenza A Rapid WENDI Not Detected Not Detected 02/15/2022 3:59 PM CUFF SETTER LOCKSTITCH [facility] Influenza B WENDI Rapid Not Detected Not Detected 02/15/2022 3:59 PM CUFF SETTER LOCKSTITCH [facility] Microbiology SPECIMEN FROM NASOPHARYNGEAL STRUCTURE / Unknown Collection / Unknown 02/15/2022 3:07 PM CUFF SETTER LOCKSTITCH 02/15/2022 3:10 PM CUFF SETTER LOCKSTITCH Narrative [facility] - 02/15/2022 3:59 PM CUFF SETTER LOCKSTITCH Influenza assay performed by [employer]. [...] acid amplification assay performance was validated by [facility]. This test has been authorized by the [...] Burk MD LAB - MICROBIOLOGY O RDERABLES [facility] [address] [place] [address], [facility] [phone] * VAS CAROTID DUPLEX BILATERAL (02/15/2022 1:56 PM CUFF SETTER LOCKSTITCH) Anatomical Region Laterality Modality Neck Intravascular Ul trasound 02/15/2022 12:0 2 PM CUFF SETTER LOCKSTITCH Narrative Procedure Note Adolph Pineda MD - 02/16/2022 Dagoberto Ordoñez MD VASCULAR LAB ORD ERABLES * ECHO COMPLETE (02/15/2022 11:27 AM CUFF SETTER LOCKSTITCH) Anatomical Region Laterality Modality Chest Echo 02/15/2022 10:2 8 AM CUFF SETTER LOCKSTITCH Narrative Procedure Note Corey Flowers MD - 02/15/2022 Dagoberto Ordoñez MD ECHOCARDIOGRAPHY RADIANT * TROPONIN I (02/14/2022 11:55 PM CUFF SETTER LOCKSTITCH) Troponin I 0.027 <0.032 ng/mL 02/15/2022 12:31 AM CUFF SETTER LOCKSTITCH [facility] Blood BLOOD SPECIMEN / Unknown Venipuncture / Unknown 02/14/2022 11:55 PM CUFF SETTER LOCKSTITCH 02/14/2022 11:58 PM CUFF SETTER LOCKSTITCH Justo Sparrow MD LAB - CHEMISTRY CHELO QUIGLEY [facility] [address] [place] [address], [facility] [phone] * XR CHEST 1VW PORTABLE (02/14/2022 11:25 PM CUFF SETTER LOCKSTITCH) Anatomical Region Laterality Modality Chest Radiographic Vivian ging 02/14/2022 11:2 4 PM CUFF SETTER LOCKSTITCH Narrative 02/15/2022 9:10 AM CUFF SETTER LOCKSTITCH PROCEDURE: ??XR CHEST 1VW PORTABLE, DATE/TIME OF EXAM: ??02/14/2022 11:25 PM, LOCATION ??[facility] INDICATION: R55: Syncope and collapse ADDITIONAL [...] glenoid. > Dictated by Sushil Herrera MD (residential roofer). Tony Narvaez MD have personally reviewed and interpreted this examination/study. > Interpreting Provider: Tony Hansen MD on 02/15/2022 9:10 AM Procedure Note Tony Hansen MD - 02/15/2022 PROCEDURE: XR CHEST 1VW PORTABLE, DATE/TIME OF EXAM: 02/14/2022 11:25PM, LOCATION [facility] INDICATION: R55: Syncope and collapse ADDITIONAL [...] glenoid. > Dictated by Sushil Herrera MD (residential roofer). Tony Narvaez MD have personally reviewed and interpreted this examination/study. > Interpreting Provider: Tony Hansen MD on 29:10 AM Justo Sparrow MD DIAGNOSTIC IMAGING O RDERABLES * MRI SPINE CERVICAL WITH AND WITHOUT CONTRAST (11/11/2009) Anatomical Region Laterality Modality Spine Other Dionisio Ryan MD MR ORDERABLES Care Teams Fingerprinter Relationship Specialty Start Date End Date Karrie Phillips MD [address] [place] [address] PCP - General 03/13/22
--- OUTSIDE RECORDS SUMMARY | 2024-04-11 13:16 | XMS_ITS | Encounter Summary ---
Author Organization [facility] Address [address] [place] [address] Care Team Providers Care Bookkeeping Manager Name Role Phone Karrie Phillips MD Primary Care Provider [phone] Encounter Details Date Type Department Care Team (Latest Contact Info) Description 09/04/2022 2:04 PM CDT - 09/04/2022 11:59 PM CDT Hospital Encounter [facility] DIAGNOSTIC RAD CSM [address]L [address] [facility] [place] [address] Deon Taylor MD [address] [place] [address] Discharge Disposition: Home or Self Care Social [...] and heating? Not hard at all 06/04/2022 [facility] [place] of Occupat ional Health - Occupational Stress [...] mouth every evening 06/08/2022 saline nasal spray ([place]; Baby Lyons) 0.65 % nasal spray [place] 1 (one) spray into each nostril as needed for Dry Nose 15 mL 02/19/2022 vitamin D3 (Cholecalciferol) 10 MCG (400 UNIT) tablet Take 2 (two) tablets by mouth once daily 06/09/2022 documented as of this encounter Plan of Treatment Upcoming Encounters Date Type Department Care Team (Late st Contact Info) Description 06/02/2024 1:45 PM PLUG CUTTING MACHINE OPERATOR Office Visit [facility] - Orthopedics [address] [place] [address], [facility] [place] [address] Deon Taylor MD [address] [place] [address] documented as of this encounter Procedures Procedure [...] DATE/TIME OF EXAM: ??09/04/2022 2:09 PM, LOCATION ??[facility] INDICATION: Z98.1: S/P cervical spinal fusion ADDITIONAL [...] normal. Report dictated by Jose Kohli MD (president and ceo). I, Tony Hansen MD have personally reviewed and interpreted this examination/study. > Interpreting Provider: Tony Hansen MD on 09/04/2022 3:15 PM Procedure Note Tony Hansen MD - 09/04/2022 PROCEDURE: XR CERVICAL SPINE 2 OR 3VW, DATE/TIME OF EXAM: 32:09 PM, LOCATION [facility] INDICATION: Z98.1: S/P cervical spinal fusion ADDITIONAL [...] normal. Report dictated by Jose Kohli MD (president and ceo). I, Tony Hansen MD have personally reviewed and interpreted this examination/study. > Interpreting Provider: Tony Hansen MD on 09/04/2022 3:15PM Deon Taylor MD DIAGNOSTIC IMAGING O RDERABLES documented in this encounter Visit Diagnoses Diagnosis S/P cervical spinal fusion Arthrodesis status documented in this encounter Care Teams Bookkeeping Manager Relationship Specialty Start Date End Date Karrie Phillips MD [address] [place] [address] PCP - General 03/13/22 documented as of this encounter
--- OUTSIDE RECORDS SUMMARY | 2024-04-11 13:16 | XMS_ITS | Encounter Summary ---
Author Organization [facility] Address [address] [place] [address] Care Team Providers Care Theatrical Scenic Designer Name Role Phone Karrie Phillips MD Primary Care Provider [phone] Encounter Details Date Type Department Care Team (Late st Contact Info) Description 06/14/2022 Orders Only [facility] - [facility] [address] [place] [address], [place] [address] Deon Taylor MD [address] [place] [phone] Neck pain Social History Tobacco Use Types [...] and heating? Not hard at all 06/04/2022 [facility] [place] of Occupat ional Health - Occupational Stress [...] st Contact Info) Description 06/02/2024 1:45 PM LARRIMAN Office Visit [facility] [address] [facility], [place] [address] Deon Taylor MD [address] [place] [address] documented as of this encounter Visit Diagnoses Diagnosis Neck pain- Primary Cervicalgia documented in this encounter Care Teams Theatrical Scenic Designer Relationship Specialty Start Date End Date aKrrie Phillips MD [address] [place] [address] PCP - General 03/13/22 documented as of this encounter
--- OUTSIDE RECORDS SUMMARY | 2024-04-11 13:16 | XMS_ITS | Encounter Summary ---
Author Organization [facility] Address [address] [place] [address] Care Team Providers Care Milanese Knitting Machine Operator Name Role Phone Karrie Phillips MD Primary Care Provider [phone] Encounter Details Date Type Department Care Team [...] and heating? Not hard at all 06/04/2022 [facility] [place] of Occupat ional Health - Occupational Stress [...] st Contact Info) Description 06/02/2024 1:45 PM EDGE STAINER MACHINE Office Visit [facility] [address] [place] [address], [facility] [place] [address] Deon Taylor MD [address] [place] [address] documented as of this encounter Visit Diagnoses Not on filedocumented in this encounter Care Teams Milanese Knitting Machine Operator Relationship Specialty Start Date End Date Karrie Phillips MD [address] [place], [place] [address] [address] PCP - General 03/13/22 documented as of this encounter
--- OUTSIDE RECORDS SUMMARY | 2024-04-11 13:16 | XMS_ITS | Encounter Summary ---
Author Organization [facility] Address [address] [place] [address] Care Team Providers Care Manager Contact Name Role Phone Karrie Phillips MD Primary Care Provider [phone] Encounter Details Date Type Department Care Team (Latest Contact Info) Description 12/04/2022 2:44 PM CDT - 12/04/2022 11:59 PM CDT Hospital Encounter [facility] DI[facility]IC RAD CSM [address]L [address] [facility] [address] Deon Taylor MD [address] [place] [address] Discharge Disposition: Home or Self Care Social [...] and heating? Not hard at all 06/04/2022 [facility] [place] of Occupat ional Health - Occupational Stress [...] mouth every evening 06/08/2022 saline nasal spray ([place]; Baby Roxana) 0.65 % nasal spray [place] 1 (one) spray into each nostril as needed for Dry Nose 15 mL 02/19/2022 vitamin D3 (Cholecalciferol) 10 MCG (400 UNIT) tablet Take 2 (two) tablets by mouth once daily 06/09/2022 documented as of this encounter Plan of Treatment Upcoming Encounters Date Type Department Care Team (Late st Contact Info) Description 06/02/2024 1:45 PM PIG MACHINE CRANE OPERATOR Office Visit [facility] - Orthopedics [address] [facility], [place] [address] Deon Taylor MD [facility] [place] [address] documented as of this encounter Procedures Procedure [...] Report dictated by Caesar Carpio MD (residential glazier). I, Petar Spears MD have personally reviewed and interpreted this examination/study. > Interpreting Provider: Petar Spears MD on 12/04/2022 3:02 PM Narrative 12/04/2022 3:02 PM CDT PROCEDURE: ??XR CERVICAL SPINE 2 OR 3VW, DATE/TIME OF EXAM: ??12/04/2022 2:47 PM, LOCATION ??[facility] INDICATION: Z98.1: S/P cervical spinal fusion [...] 3VW, DATE/TIME OF EXAM: 32:47 PM, LOCATION [facility] INDICATION: Z98.1: S/P cervical spinal fusion [...] Report dictated by Caesar Carpio MD (residential glazier). I, Petar Spears MD have personally reviewed and interpreted this examination/study. > Interpreting Provider: Petar Spears MD on 12/04/2022 3:02 PM Deon Taylor MD DIAGNOSTIC IMAGING O RDERABLES documented in this encounter Visit Diagnoses Diagnosis S/P cervical spinal fusion Arthrodesis status documented in this encounter Care Teams Manager Contact Relationship Specialty Start Date End Date Karrie Phillips MD [address] [place] [address] PCP - General 03/13/22 documented as of this encounter
--- OUTSIDE RECORDS SUMMARY | 2024-04-11 13:16 | XMS_ITS | Encounter Summary ---
Author Organization [facility] Address [address] [place] [address] Care Team Providers Care Registered Appraiser Name Role Phone Karrie Phillips MD Primary Care Provider [phone] Reason for Visit * Auth/Cert (Routine) Specialty Diagnoses / Procedures Referred By Everardo fried Referred To Contact Referral ID Status Reason Start Date Expiration Date Visits Re quested Visits Authorized [id number] 1 1 Encounter Details Date Type Department Care Team (Late st Contact Info) Description 06/21/2022 4:26 PM CDT Anesthesia Event [facility] [address] [place] [address] Dallas Francisco MD [address] [place] [address] Price Michel DO [address] [place] [address] Anesthesia Record Procedure Summary Procedure Name Responsible [...] and heating? Not hard at all 06/04/2022 [facility] of Occupat ional Health - Occupational Stress [...] procedural Anesthetic Plan was discussed with the BARREL RIBS SOLDERER. BMI, Height, Weight Tobacco History Estimated body [...] closed fractures of facial bone, initial encounter ([facility]) 02/15/2022 Priority: Not Prioritized ??? Nausea 01/10/2022 [...] 12/07/2021 Priority: Not Prioritized ??? Systemic sclerosis ([facility]) 12/07/2021 Priority: Not Prioritized ??? Sprain of ankle 12/07/2021 Priority: Not Prioritized ??? Sciatica 12/07/2021 Priority: Not Prioritized ??? Recurrent major depression in remission ([facility]) 12/07/2021 Priority: Not Prioritized ??? Polyp of colon 12/07/2021 Priority: Not Prioritized ??? Perineal pain 12/07/2021 Priority: Not Prioritized ??? Nonexudative age-related macular degeneration 12/07/2021 Priority: Not Prioritized ??? 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 Multiple bruises 12/07/2021 Priority: Not Prioritized ??? Mixed collagen vascular disease ([facility]) 12/07/2021 Priority: Not Prioritized ??? Paronychia of toe of right foot 07/25/2021 Priority: Not Prioritized ??? Onychomycosis of toenail 07/17/2021 Priority: Not Prioritized ??? Chronic kidney disease 03/30/2019 Priority: Not Prioritized ??? Chronic obstructive pulmonary disease ([facility]) 03/30/2019 Priority: Not Prioritized ??? Hyposmolality 03/30/2019 Priority: Not Prioritized ??? Ulnar neuropathy 03/30/2019 Priority: Not Prioritized ??? Raynaud's disease 03/30/2019 Priority: Not Prioritized ??? Dyspnea on exertion 02/23/2019 Priority: Not Prioritized ??? Type 2 diabetes mellitus ([facility]) 02/23/2019 Priority: Not Prioritized ??? Type 2 diabetes mellitus with stage 3 chronic kidney disease, without long- term current use of insulin ([facility] 02/23/2019 Priority: Not Prioritized ??? Mixed hyperlipidemia 02/23/2019 Priority: Not Prioritized ??? Degeneration of cervical intervertebral disc 12/09/2009 Medical History: Past Medical History: Diagnosis Date ??? Anemia ??? Ferrell's esophagus ??? CKD (chronic kidney disease), stage III ([facility]) ??? Diabetes ??? Disease of esophagus ??? [...] Repair Bilateral ??? ULNAR NERVE TRANSPOSITION Left FOOD AND NUTRITION SUPERVISOR Status: No LMP recorded (lmp unknown). Patient has had a hysterectomy. Hysterectomy OB History No obstetric history on file. Covid Vaccine: Lab Results: Recent Labs Base Name 06/08/22 0747 [id number] SPECIMENTYPE Arterial Recent Labs Component Name [...] Anesthesia Transfer of Care - Denita Taylor APRN-[facility] - 06/21/2022 4:59 PM CDT ANESTHESIA [...] st Contact Info) Description 06/02/2024 1:45 PM DISTRIBUTION DISPATCHER Office Visit [facility] - Orthopedics [address] [place] [address], [place] [address] Deon Taylor MD [address] [place] [address] documented as of this encounter Visit [...] mg documented in this encounter Care Teams Registered Appraiser Relationship Specialty Start Date End Date Karrie Phillips MD [address] [place] [address] PCP - General 03/13/22 documented as of this encounter
--- OUTSIDE RECORDS SUMMARY | 2024-04-11 13:16 | XMS_ITS | Encounter Summary ---
Author Organization [facility] Address [address] [place] [address] Care Team Providers Care Orthopedic Coder Name Role Phone Karrie Phillips MD Primary Care Provider [phone] Encounter Details Date Type Department Care Team (Late st Contact Info) Description 06/03/2023 Orders Only [facility] - [facility] [address] [place] [address], [place] [address] Deon Taylor MD [address] [place] [phone] S/P cervical spinal fusion Social History Tobacco [...] and heating? Not hard at all 06/04/2022 [facility] [place] of Occupat ional Health - Occupational Stress [...] st Contact Info) Description 06/02/2024 1:45 PM RURAL MAIL CARRIER Office Visit [facility] - Orthopedics [address] [place] [address] Deon Taylor MD [address] [place] [address] documented as of this encounter Results * XR CERVICAL SPINE 2 OR 3VW (06/04/2023 1:57 PM RURAL MAIL CARRIER) Anatomical Region Laterality Modality Spine Radiographic Vivian ging 06/04/2023 1:57 PM RURAL MAIL CARRIER Impressions 06/04/2023 2:28 PM RURAL MAIL CARRIER IMPRESSION: Redemonstration of posterior instrumented spinal fusion hardware of C4-T2 with unchanged alignment. Report dictated by Joey Herman MD, (business services vice president). I, Petar Spears MD have personally reviewed and interpreted this examination/study. > Interpreting Provider: Petar Spears MD on 06/04/2023 2:28 PM Narrative 06/04/2023 2:28 PM RURAL MAIL CARRIER PROCEDURE: ??XR CERVICAL SPINE 2 OR 3VW, [...] alignment. Report dictated by Joey Herman MD, (business services vice president). I, Petar Spears MD have personally reviewed and interpreted this examination/study. > Interpreting Provider: Petar Spears MD on 06/04/2023 2:28 PM Deon Taylor MD DIAGNOSTIC IMAGING O RDERABLES documented in this encounter Visit Diagnoses Diagnosis S/P cervical spinal fusion- Primary Arthrodesis status S/P cervical spinal fusion Arthrodesis status documented in this encounter Care Teams Orthopedic Coder Relationship Specialty Start Date End Date Karrie Phillips MD [address] [place] [address] PCP - General 03/13/22 documented as of this encounter
--- OUTSIDE RECORDS SUMMARY | 2024-04-11 13:16 | XMS_ITS | Encounter Summary ---
Author Organization [facility] Address [address] [place] [address] Care Team Providers Care Carpenter Prototype Name Role Phone Karrie Phillips MD Primary Care Provider [phone] Reason for Visit * Consult, Test & Treat (Routine) - Closed Specialty Diagnoses / Procedures Referred By Everardo fried Referred To Contact Orthopedic Surgery / Orthopedics Selfreferral, Patient Deon Taylor MD [address] [place] [address] Referral ID Status Reason Start Date Expiration Date Visits Re quested Visits Authorized [id number] Closed 12/04/2022 12/04/2023 1 1 Encounter Details Date Type Department Care Team (Late st Contact Info) Description 06/04/2023 1:45 PM PACKING SHED SUPERVISOR Office Visit [facility] [address] [place] [address], [place] [address] Deon Taylor MD [address] [place] [address] S/P cervical spinal fusion (Primary Dx) Social [...] heating? Not hard at all 06/04/2022 [facility] [place] of Occupat ional Health - Occupational Stress [...] lb 3.2 oz) 06/04/2023 2:02 P M PACKING SHED SUPERVISOR Height - - Body Mass Index 28.57 [...] deltoids biceps triceps wrist extensors wrist flexors divisional human resources director strength interosseous muscles as well as hip [...] or concerns. This note was transcribed using [employer] dictation software and may include inaccuracies in pathology secretary/transcriptionist which were unrecognized and not corrected. Please reach out to my clinical specialist Delaney De Luna RN at [phone] for any questions or concerns. Deon Taylor MD ING SHED SUPERVISOR documented in this encounter Plan of Treatment Upcoming Encounters Date Type Department Care Team (Late st Contact Info) Description 06/02/2024 1:45 PM PACKING SHED SUPERVISOR Office Visit [facility] - Orthopedics [address] [facility], [place] [address] Deon Taylor MD [address] [place] [address] documented as of this encounter Visit Diagnoses Diagnosis S/P cervical spinal fusion- Primary Arthrodesis status documented in this encounter Care Teams Carpenter Prototype Relationship Specialty Start Date End Date Karrie Phillips MD [address] [place] [address] PCP - General 03/13/22 documented as of this encounter
--- OUTSIDE RECORDS SUMMARY | 2024-04-11 13:16 | XMS_ITS | Encounter Summary ---
Author Organization [facility] Address [address] [facility] [place] [address] Care Team Providers Care Electric Sign Assembler Name Role Phone Karrie Phillips MD Primary Care Provider [phone] Encounter Details Date Type Department Care Team (Latest Contact Info) Description 06/04/2023 1:51 PM COMMERCIAL FOOD INSTRUCTOR - 06/04/2023 11:59 PM COMMERCIAL FOOD INSTRUCTOR Hospital Encounter [facility] DIAGNOSTIC RAD CSM [address]L [address] [facility] [address] Deon Taylor MD [address] [place] [address] Discharge Disposition: Home or Self Care Social [...] hard at all 06/04/2022 [facility] [place] of Occupat ional Health - Occupational Stress [...] mouth every evening 06/08/2022 saline nasal spray ([place]; Baby [place]) 0.65 % nasal spray [address] 1 (one) spray into each nostril as needed for Dry Nose 15 mL 02/19/2022 vitamin D3 (Cholecalciferol) 10 MCG (400 UNIT) tablet Take 2 (two) tablets by mouth once daily 06/09/2022 documented as of this encounter Plan of Treatment Upcoming Encounters Date Type Department Care Team (Late st Contact Info) Description 06/02/2024 1:45 PM COMMERCIAL FOOD INSTRUCTOR Office Visit [facility] - Orthopedics [address] [facility], [place] [address] Deon Taylor MD [facility] [place] [address] documented as of this encounter Procedures Procedure Name Priority Date/Time Associated Diagnosis Comments XR CERVICAL SPINE 2 OR 3VW Routine 06/04/2023 1:57 PM COMMERCIAL FOOD INSTRUCTOR S/P cervical spinal fusion documented in this encounter Results * XR CERVICAL SPINE 2 OR 3VW (06/04/2023 1:57 PM COMMERCIAL FOOD INSTRUCTOR) Anatomical Region Laterality Modality Spine Radiographic Vivian ging 06/04/2023 1:57 PM COMMERCIAL FOOD INSTRUCTOR Impressions 06/04/2023 2:28 PM COMMERCIAL FOOD INSTRUCTOR IMPRESSION: Redemonstration of posterior instrumented spinal fusion hardware of C4-T2 with unchanged alignment. Report dictated by Joey Herman MD, (md do resident urgent care). I, Petar Spears MD have personally reviewed and interpreted this examination/study. > Interpreting Provider: Petar Spears MD on 06/04/2023 2:28 PM Narrative 06/04/2023 2:28 PM COMMERCIAL FOOD INSTRUCTOR PROCEDURE: ??XR CERVICAL SPINE 2 OR 3VW, DATE/TIME OF EXAM: ??06/04/2023 1:57 PM, LOCATION ??[facility] INDICATION: Z98.1: S/P cervical spinal [...] 3VW, DATE/TIME OF EXAM: 41:57 PM, LOCATION [facility] INDICATION: Z98.1: S/P cervical spinal [...] alignment. Report dictated by Joey Herman MD, (md do resident urgent care). I, Petar Spears MD have personally reviewed and interpreted this examination/study. > Interpreting Provider: Petar Spears MD on 06/04/2023 2:28 PM Deon Taylor MD DIAGNOSTIC IMAGING O RDERABLES documented in this encounter Visit Diagnoses Diagnosis S/P cervical spinal fusion Arthrodesis status documented in this encounter Care Teams Electric Sign Assembler Relationship Specialty Start Date End Date Karrie Phillips MD [facility] [place] [address] PCP - General 03/13/22 documented as of this encounter
--- OUTSIDE RECORDS SUMMARY | 2024-04-11 13:16 | XMS_ITS | Encounter Summary ---
Author Organization [facility] Address [address] [facility] [place] [address] Care Team Providers Care Surveillance Systems Engineer Name Role Phone Karrie Phillips MD Primary Care Provider [phone] Reason for Visit * Reason Comments Surgical Follow-up * Consult, Test & Treat (Routine) - Closed Specialty Diagnoses / Procedures Referred By Contac t Referred To Contact Orthopedic Surgery / Orthopedics Selfreferral, Patient Deon Taylor MD [address] [place] [address] Referral ID Status Reason Start Date Expiration Date Visits Re quested Visits Authorized [id number] Closed 12/04/2022 12/04/2023 1 1 Encounter Details Date Type Department Care Team (Late st Contact Info) Description 12/04/2022 1:45 PM CDT Office Visit [facility] [address] [place] [address], [place] [address] Deon Taylor MD [address] [place] [address] S/P cervical spinal fusion (Primary Dx) [...] all 06/04/2022 [facility] [place] of Occupat ional Health - Occupational Stress [...] place to sleep or slept in a detention (including now)? No 06/04/2022 Sex and Gender [...] Please contact Dr. Taylor's clinical specialist at [phone] or through Mozy if you have any further questions or concerns. [facility] Orthopaedic office contact information: [facility] [address] [place] [address] [place] [address] [facility] [address] [place] [address], [place] [address] December 04, 2022 To Whom It May Concern: Please use this letter to document that Kandace [place], : 1950, was in to see Deon Taylor MD on 12/04/2022. Thank you. Sincerely, Deon Taylor MD [facility] CSM 1L documented in this encounter Progress Notes * Aleyda Rebollar MD - 12/04/2022 2:39 PM CDT [facility] Orthopedic Spine Surgery Clinic Note Kandace [place], 72 year old, female : 1950 CSN: [id number] Primary Care Physician: Karrie Phillips MD, MD [...] 100 MG tablet ??? saline nasal spray ([place]; Baby [place]) 0.65 % nasal spray ??? vitamin D3 [...] Please reach out to my clinical specialist [phone] with any questions or concerns. 12/04/2022 2:50 [...] (severe dysfunction) This note was transcribed using [employer] dictation software and may include inaccuracies in dressed poultry grader which were unrecognized and not corrected. Deon Taylor MD documented in this encounter Plan of Treatment Upcoming Encounters Date Type Department Care Team (Late st Contact Info) Description 06/02/2024 1:45 PM RIBBON SWEATBAND OPERATOR Office Visit [facility] - Orthopedics [address] [place] [address], [place] [address] Deon Taylor MD [address] [place] [address] documented as of this encounter Results * XR CERVICAL SPINE 2 OR 3VW (12/04/2022 2:45 PM CDT) Anatomical Region Laterality Modality Spine Radiographic Vivian ging 12/04/2022 2:53 PM CDT Impressions 12/04/2022 3:02 PM CDT IMPRESSION: Redemonstrated C4-T2 posterior instrumentation with unchanged alignment. Report dictated by Caesar Carpio MD (residential leasing manager). I, Petar Spears MD have personally reviewed and interpreted this examination/study. > Interpreting Provider: Petar Spears MD on 12/04/2022 3:02 PM Narrative 12/04/2022 3:02 PM CDT PROCEDURE: ??XR CERVICAL SPINE 2 OR 3VW, DATE/TIME OF EXAM: ??12/04/2022 2:47 PM, LOCATION ??[facility] INDICATION: Z98.1: S/P cervical spinal [...] 3VW, DATE/TIME OF EXAM: 32:47 PM, LOCATION [facility] INDICATION: Z98.1: S/P cervical spinal [...] Report dictated by Caesar Carpio MD (residential leasing manager). I, Petar Spears MD have personally reviewed and interpreted this examination/study. > Interpreting Provider: Petar Spears MD on 12/04/2022 3:02 PM Deon Taylor MD DIAGNOSTIC IMAGING O RDERABLES documented in this encounter Visit Diagnoses Diagnosis S/P cervical spinal fusion- Primary Arthrodesis status S/P cervical spinal fusion Arthrodesis status documented in this encounter Care Teams Surveillance Systems Engineer Relationship Specialty Start Date End Date Karrie Phillips MD [facility] [place] [address] PCP - General 03/13/22 documented as of this encounter
--- OUTSIDE RECORDS SUMMARY | 2024-04-11 13:17 | XMS_ITS | Encounter Summary ---
Author Organization [facility] Address [address] [place] [address] Care Team Providers Care Filing Clerk Name Role Phone Karrie Phillips MD Primary Care Provider [phone] Encounter Details Date Type Department Care Team (Late st Contact Info) Description 03/12/2022 Orders Only [facility] [address] [place] [address], [place] [address] Deon Taylor MD [address] [place] [phone] Neck pain Social History Tobacco Use Types [...] st Contact Info) Description 06/02/2024 1:45 PM USED CAR LOT ATTENDANT Office Visit [facility] - Orthopedics [address] [place] [address], [facility] [place] [address] Deon Taylor MD [address] [place] [address] documented as of this encounter Results * XR CERVICAL SPINE 2 OR 3VW (03/13/2022 1:02 PM USED CAR LOT ATTENDANT) Anatomical Region Laterality Modality Spine Radiographic Vivian ging 03/13/2022 1:13 PM USED CAR LOT ATTENDANT Impressions 03/13/2022 1:20 PM USED CAR LOT ATTENDANT IMPRESSION: There is straightening of the cervical [...] 03/13/2022 1:20 PM Narrative 03/13/2022 1:20 PM USED CAR LOT ATTENDANT PROCEDURE: ??XR CERVICAL SPINE 2 OR 3VW, DATE/TIME OF EXAM: ??03/13/2022 1:03 PM, LOCATION ??[facility] INDICATION: M54.2: Neck pain ADDITIONAL CLINICAL INFORMATION: Ordering Provider Reason For Exam: ??neck pain COMPARISON: CT dated 02/15/2022. Procedure Note Alejo Ahuja MD - 03/13/2022 PROCEDURE: XR CERVICAL SPINE 2 OR 3VW, DATE/TIME OF EXAM: 21:03 PM, LOCATION [facility] INDICATION: M54.2: Neck pain ADDITIONAL CLINICAL INFORMATION: [...] Cervicalgia documented in this encounter Care Teams Filing Clerk Relationship Specialty Start Date End Date Karrie Phillips MD [address] [place] [address] PCP - General 03/13/22 documented as of this encounter
--- OUTSIDE RECORDS SUMMARY | 2024-04-11 13:17 | XMS_ITS | Encounter Summary ---
Author Organization [facility] Address [address] [facility] [place] [address] Care Team Providers Care Grapple Crew Leader Name Role Phone Karrie Phillips MD Primary Care Provider [phone] Encounter Details Date Type Department Care Team (Latest Contact Info) Description 05/15/2022 12:00 PM VAULT MAKER - 05/15/2022 1:26 PM [facility] Hospital Encounter [facility] PAT [address] [place] [phone] Unknown, Provider Discharge Disposition: Home or Self [...] Comments Blood Pressure 130/54 05/15/2022 12:22 PM VAULT MAKER Pulse 72 05/15/2022 12:22 PM VAULT MAKER Temperature 36.9 ??C (98.4 ??F) 05/15/2022 12:[address] Respiratory Rate 16 05/15/2022 12:22 PM VAULT MAKER Oxygen Saturation 100% 05/15/2022 12:22 PM VAULT MAKER Inhaled Oxygen Concentration - - Weight 61.3 kg (135 lb 3.2 oz) 05/15/2022 12:22 PM VAULT MAKER Height 154.9 cm (5' 1 ) 05/15/2022 12:22 PM VAULT MAKER Body Mass Index 25.55 05/15/2022 12:22 PM VAULT MAKER documented in this encounter Functional Status Functional [...] mouth every evening 06/08/2022 saline nasal spray ([place]; Baby [place]) 0.65 % nasal spray [place] 1 (one) spray into each nostril as [...] st Contact Info) Description 06/02/2024 1:45 PM VAULT MAKER Office Visit [facility] - Orthopedics [address] [place] [address], [facility] [place] [address] Deon Taylor MD [address] [place] [address] documented as of this encounter Results * TYPE + SCREEN PANEL (05/15/2022 1:52 PM VAULT MAKER) Antibody Screen NEG 3:13 PM VAULT MAKER [facility] BLOOD BANK LAB ABO Rh A POS 05/15/2022 3:13 PM VAULT MAKER [facility] BLOOD [facility] LAB Blood Bank BLOOD SPECIMEN / Unknown Lab Venipuncture / Unknown 05/15/2022 1:52 PM VAULT MAKER 05/15/2022 2:23 PM VAULT MAKER Provider Unknown LAB - BLOOD BANK ORD ERABLES [facility] BLOOD [facility]ANK LAB [address] [place] [address], [facility] [phone] * (ABNORMAL) BASIC METABOLIC PANEL (CALCIUM TOTAL) (05/15/2022 1:52 PM VAULT MAKER) BUN 20 7 - 26 mg/dL 05/15/2022 2:49 PM [facility] Creatinine 1.53(H) 0.56 - 0.96 mg/dL 05/15/2022 2:49 PM [facility] Sodium 137 136 - 145 mmol/L 05/15/2022 2:49 PM [facility] Potassium 4.6(H) 3.5 - 4.5 mmol/L 05/15/2022 2:49 PM [facility] Chloride 103 98 - 107 mmol/L 05/15/2022 2:49 PM [facility] CO2 25 22 - 29 mmol/L 05/15/2022 2:49 PM [facility] Glucose 107 70 - 115 mg/dL 05/15/2022 2:49 PM [facility] Calcium 9.4 8.4 - 10.2 mg/dL 05/15/2022 2:49 PM [facility] Anion Gap 14 8 - 18 05/15/2022 2:49 PM [facility] BUN/Creatinine Ratio 13 7 - 23 05/15/2022 2:49 PM [facility] Osmolality Calculated 287 270 - 300 mOsm/kg 05/15/2022 2:49 PM [facility] eGFR by CKD-EPI 36(L) >=90 mL/min/1.7 3 m2 05/15/2022 2:49 PM [facility] Blood BLOOD SPECIMEN / Unknown Lab Venipuncture / Unknown 05/15/2022 1:52 PM VAULT MAKER 05/15/2022 2:20 PM VAULT MAKER Provider Unknown LAB - CHEMISTRY [facility] [address] [place] [address], [facility] [phone] * (ABNORMAL) CBC W/O DIFFERENTIAL (05/15/2022 1:52 PM VAULT MAKER) WBC 6.6 3.5 - 10.5 10? 3 /uL 05/15/2022 2:29 PM [facility] RBC 3.34(L) 3.80 - 5.20 10? 6 /uL 05/15/2022 2:29 PM [facility] Hemoglobin 9.9(L) 12.0 - 15.6 g/dL 05/15/2022 2:29 PM [facility] Hematocrit 30.4(L) 35.0 - 45.0 % 05/15/2022 2:29 PM [facility] MCV 91.0 80.7 - 98.3 fL 05/15/2022 2:29 PM [facility] MCH 29.6 26.7 - 34.0 pg 05/15/2022 2:29 PM [facility] MCHC 32.6 30.8 - 35.9 g/dL 05/15/2022 2:29 PM [facility] RDW-SD 43.3 36.0 - 50.0 fL 05/15/2022 2:29 PM [facility] RDW-CV 13.0 11.2 - 14.8 % 05/15/2022 2:29 PM [facility] Platelet Count 329 150 - 400 10? 3 /uL 05/15/2022 2:29 PM [facility] MPV 9.8 9.4 - 12.9 fL 05/15/2022 2:29 PM [facility] nRBC Absolute 0.00 0 10? 3 /uL 05/15/2022 2:29 PM [facility] nRBC Auto 0.0 0 /100 WBC 05/15/2022 2:29 PM [facility] Blood BLOOD SPECIMEN / Unknown Lab Venipuncture / Unknown 05/15/2022 1:52 PM VAULT MAKER 05/15/2022 2:20 PM VAULT MAKER Provider Unknown LAB - HEMATOLOGY ORD ERABLES [facility] [address] [place] [address], [facility] [phone] documented in this encounter Visit Diagnoses Diagnosis Preop examination- Primary Preoperative examination, unspecified documented in this encounter Care Teams Grapple Crew Leader Relationship Specialty Start Date End Date Karrie Phillips MD [address] [place] [address] PCP - General 03/13/22 documented as of this encounter
--- OUTSIDE RECORDS SUMMARY | 2024-04-11 13:17 | XMS_ITS | Encounter Summary ---
Author Organization [facility] Address [address] [place] [address] Care Team Providers Care Net Programmer Analyst Name Role Phone Karrie Phillips MD Primary Care Provider [phone] Reason for Visit * Auth/Cert (Routine) Specialty Diagnoses / Procedures Referred By Everardo fried Referred To Contact Diagnoses Cervical myelopathy (HCC) cervical myelopathy Procedures FUSION POSTERIOR CERVICAL (PCF) Referral ID Status Reason Start Date Expiration Date Visits Re quested Visits Authorized [id number] 1 1 Encounter Details Date Type Department Care Team (Late st Contact Info) Description 06/04/2022 7:31 AM UX CONSULTANT Anesthesia Event [facility] [address] [place] [address] [place] [address] [place] [address] Marcos Rojas Anes Asst [address] [facility] [place] [address] Anesthesia Record Procedure Summary Procedure Name Responsible [...] and heating? Not hard at all 06/04/2022 [facility] - Occupational [...] place to sleep or slept in a fpc (including now)? No 06/04/2022 Sex and Gender [...] ETT Pre-op Diagnosis Codes: * Cervical myelopathy (CMS/[facility]) [G95.9] Mental Status: awake, alert, oriented, [...] Needed NOTABLE EVENTS: No notable events documented. CONSULTANT * Chilo Franklin MD - 05/15/2022 12:45 [...] stairs. Denies chest pain. Denies hx of SC, heart failure, arrhythmias, strokes, seizures. Other PMH [...] procedural Anesthetic Plan was discussed with the NURSING EDUCATOR and resident. Overall additional findings/comments: Discussed risks [...] This list must include ALL known prescriptions, sxsk-wqt-virxvzie, herbals, and vitamin/mineral/dietary (nutritional) supplements AND must [...] for the 05/15/22 encounter (Hospital Encounter) with [facility] 1 Medication Sig Last Dose ??? [...] closed fractures of facial bone, initial encounter ([facility]) 02/15/2022 Priority: Not Prioritized ??? Nausea [...] 12/07/2021 Priority: Not Prioritized ??? Systemic sclerosis ([facility]/HCC) 12/07/2021 Priority: Not Prioritized ??? Sprain of ankle 12/07/2021 Priority: Not Prioritized ??? Sciatica 12/07/2021 Priority: Not Prioritized ??? Recurrent major depression in remission ([facility]) 12/07/2021 Priority: Not Prioritized ??? Polyp of colon 12/07/2021 Priority: Not Prioritized ??? Perineal pain 12/07/2021 Priority: Not Prioritized ??? Nonexudative age-related macular degeneration 12/07/2021 Priority: Not Prioritized ??? 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 Multiple bruises 12/07/2021 Priority: Not Prioritized ??? Mixed collagen vascular disease ([facility]) 12/07/2021 Priority: Not Prioritized ??? Paronychia of toe of right foot 07/25/2021 Priority: Not Prioritized ??? Onychomycosis of toenail 07/17/2021 Priority: Not Prioritized ??? Chronic kidney disease 03/30/2019 Priority: Not Prioritized ??? Chronic obstructive pulmonary disease ([facility]) 03/30/2019 Priority: Not Prioritized ??? Hyposmolality 03/30/2019 Priority: Not Prioritized ??? Ulnar neuropathy 03/30/2019 Priority: Not Prioritized ??? Raynaud's disease 03/30/2019 Priority: Not Prioritized ??? Dyspnea on exertion 02/23/2019 Priority: Not Prioritized ??? Type 2 diabetes mellitus ([facility]) 02/23/2019 Priority: Not Prioritized ??? Type 2 diabetes mellitus with stage 3 chronic kidney disease, without long- term current use of insulin ([facility]) 02/23/2019 Priority: Not Prioritized ??? Mixed [...] Rotator Cuff Repair ??? 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 Patient has had a hysterectomy. Hysterectomy OB History No obstetric history on file. Covid Vaccine: Lab Results: Recent Labs Component Name 02/15/22 1507 SARSCOV2 Not detected Recent Labs Base Name 02/16/22 0657 [id number] SPECIMENTYPE Cap Fingerstick Recent Labs Component [...] PM and Within 6 months for AICD [place] Information needed (manager money, mode, indication for CIED, battery life, magnet function): If Biotronik device AND PM dependent AND surgical site above umbilicus then call local office at [phone] to schedule reprogramming of CIED (into asynchronous [...] reviewed Luiza Fernandez MD PAT evaluation end: CONSULTANT documented in this encounter Procedure Notes * Marcos Rojas Anes Asst - 06/04/2022 9:09 AM CSTAssociated Order(s): ETT Placement Endotracheal Tube Placement: Patient Location: OR. Intubation Event Date/Time: 06/04/2022 7:44 AM Procedure: intubation ([id number]). Procedure Section: Sedation: under general anesthesia. Indications [...] Theodore CEJA performed intubation under direct supervision.. CONSULTANT * Marcos Rojas Anes Asst - 06/04/2022 9:08 AM CSTAssociated Order(s): Arterial Line Placement Arterial Line Placement Procedure Note Patient Location: OR. Procedure: Arterial Line ([id number]). Procedure Section Indications: continuous blood pressure monitoring [...] procedure Provider #1: Marcos Rojas Anes Asst. CONSULTANT documented in this encounter Miscellaneous Notes * Addendum Note - Brien Madrid DO - 06/05/2022 7:08 AM CST Addendum created 06/05/22707 by Brien Madrid DO Clinical Note Signed CONSULTANT * Anesthesia Transfer of Care - Adi Lee MD - 06/04/2022 11:47 AM UX CONSULTANT ANESTHESIA TRANSFER OF CARE NOTE Today's Date: [...] from the receiving PACUteam. Adi Lee MD CONSULTANT documented in this encounter Plan of Treatment Upcoming Encounters Date Type Department Care Team (Late st Contact Info) Description 06/02/2024 1:45 PM UX CONSULTANT Office Visit [facility] - Orthopedics [address] [place] [address], [facility] [place] [address] Deon Taylor MD [address] [place] [phone] documented as of this encounter Procedures Procedure Name Priority Date/Time Associated Diagnosis Comments ENDOTRACHEAL TUBE NOTE Routine 06/04/2022 9:09 AM UX CONSULTANT ARTERIAL LINE NOTE Routine 06/04/2022 9: 08 AM UX CONSULTANT documented in this encounter Results * ETT LINE PERFORMABLE (06/04/2022 9:09 AM UX CONSULTANT) Narrative Marcos Rojas Anes Asst - 06/04/2022 9:09 AM UX CONSULTANT Marcos Rojas Anes Asst ? 06/04/2022 ??9:11 AM Endotracheal Tube Placement: ? Patient Location: OR. Intubation Event Date/Time: ??06/04/2022 7:44 AM Procedure: intubation ([id number]). Procedure Section: ?? Sedation: under general anesthesia. [...] * ARTERIAL LINE PERFORMABLE (06/04/2022 9:08 AM UX CONSULTANT) Narrative Marcos Rojas Anes Asst - 06/04/2022 9:08 AM UX CONSULTANT Marcos Rojas Anes Asst ? 06/04/2022 ??9:08 AM Arterial Line Placement Procedure Note Patient Location: OR. Procedure: Arterial Line ([id number]). Procedure Section ?? Indications: continuous blood pressure [...] Intra-op $ New Bag/Syringe 06/04/2022 7:47 AM UX CONSULTANT albumin human 5 % infusion Intravenous, CONTINUOUS PRN, Starting on Sat06/04/22 at 0920, Until Sat06/04/22 at 1144, Anesthesia Intra-op $ New Bag/Syringe 06/04/2022 9:20 AM UX CONSULTANT ceFAZolin (Ancef) 2,000 mg in 50 mL IVPB Intravenous, PRN, Starting on Sat06/04/22 at 0821, Until Sat06/04/22 at 1144, Anesthesia Intra-op $ Given 06/04/2022 8:21 AM UX CONSULTANT 2 g ePHEDrine injection Intravenous, PRN, Starting on Sat06/04/22 at 0837, Until Sat06/04/22 at 1144, Anesthesia Intra-op $ Given 06/04/2022 9:36 AM UX CONSULTANT 10 mg $ Given 06/04/2022 9:10 AM UX CONSULTANT 10 mg $ Given 06/04/2022 9:00 AM UX CONSULTANT 10 mg famotidine (Pepcid) injection Intravenous, PRN, Starting on Sat06/04/22 at 0928, Until Sat06/04/22 at 1144, Anesthesia Intra-op $ Given 06/04/2022 9:28 AM UX CONSULTANT 20 mg fentaNYL (PF) (Sublimaze) injection Intravenous, PRN, Starting on Sat06/04/22 at 0738, Until Sat06/04/22 at 1144, Anesthesia Intra-op $ Given 06/04/2022 8:48 AM UX CONSULTANT 25 mcg $ Given 06/04/2022 8:00 AM UX CONSULTANT 25 mcg $ Given 06/04/2022 7:38 AM UX CONSULTANT 50 mcg glycopyrrolate (Robinul) injection Intravenous, PRN, Starting on Sat06/04/22 at 0926, Until Sat06/04/22 at 1144, Anesthesia Intra-op $ Given 06/04/2022 9:26 AM UX CONSULTANT 0.2 mg HYDROmorphone HCl-NaCl 2-0.9 MG/10ML-% SOSY Intravenous, PRN, Starting on Sat06/04/22 at 1058, Until Sat06/04/22 at 1144, Anesthesia Intra-op $ Given 06/04/2022 11:48 AM UX CONSULTANT 0.6 mg $ Given 06/04/2022 11:43 AM UX CONSULTANT 0.6 mg $ Given 06/04/2022 10:58 AM UX CONSULTANT 0.4 mg isolyte-S pH 7.4 infusion Intravenous, CONTINUOUS PRN, Starting on Sat06/04/22 at 0936, Until Sat06/04/22 at 1144, Anesthesia Intra-op $ New Bag/Syringe 06/04/2022 9:36 AM UX CONSULTANT lactated ringers infusion at 20 mL/hr, Intravenous, PRE-OP CONTINUOUS, Starting on Sat06/04/22 at 0545, Until Sat06/04/22 at 1314, Pre-op Restarted 06/04/2022 9:36 AM UX CONSULTANT $ New Bag/Syringe 06/04/2022 6:42 AM UX CONSULTANT 20 mL/ hr lidocaine HCl (PF) (Xylocaine MPF) 2 % injection Intravenous, PRN, Starting on Sat06/04/22 at 0739, Until Sat06/04/22 at 1144, Anesthesia Intra-op $ Given 06/04/2022 7:39 AM UX CONSULTANT 100 mg midazolam (Versed) injection Intravenous, PRN, Starting on Sat06/04/22 at 0816, Until Sat06/04/22 at 1144, Anesthesia Intra-op $ Given 06/04/2022 8:16 AM UX CONSULTANT 1 mg $ Given 06/04/2022 7:31 AM UX CONSULTANT 1 mg ondansetron (Zofran) injection Intravenous, PRN, Starting on Sat06/04/22 at 1055, Until Sat06/04/22 at 1144, Anesthesia Intra-op $ Given 06/04/2022 10:55 AM UX CONSULTANT 4 mg phenylephrine 100 mcg/mL injection Intravenous, PRN, Starting on Sat06/04/22 at 0813, Until Sat06/04/22 at 1144, Anesthesia Intra-op $ Given 06/04/2022 11:19 AM UX CONSULTANT 100 mcg $ Given 06/04/2022 11:05 AM UX CONSULTANT 200 mcg $ Given 06/04/2022 10:19 AM UX CONSULTANT 200 mcg phenylephrine 20 mg in 250 mL NaCl 0.9% infusion Intravenous, CONTINUOUS PRN, Starting on Sat06/04/22 at 0749, Until Sat06/04/22 at 1144, Anesthesia Intra-op Rate Change 06/04/2022 11:30 AM UX CONSULTANT 0.1 mcg/kg/min 4.538 mL/hr Rate Change 06/04/2022 11:24 AM UX CONSULTANT 0.3 mcg/kg/min 13.613 mL/hr Rate Change 06/04/2022 8:54 AM UX CONSULTANT 0.4 mcg/kg/min 18.15 mL /hr propofol (Diprivan) infusion Intravenous, CONTINUOUS PRN, Starting on Sat06/04/22 at 0749, Until Sat06/04/22 at 1144, Anesthesia Intra-op Rate Change 06/04/2022 10:40 AM UX CONSULTANT 180 mcg/kg/min 65.34 mL/hr Rate Change 06/04/2022 10:36 AM UX CONSULTANT 160 mcg/kg/min 58.08 m L/hr Rate Change 06/04/2022 10:33 AM UX CONSULTANT 150 mcg/kg/min 54.45 m L/hr propofol (Diprivan) injection Intravenous, PRN, Starting on Sat06/04/22 at 0739, Until Sat06/04/22 at 1144, Anesthesia Intra-op $ Given 06/04/2022 7:40 AM UX CONSULTANT 50 mg $ Given 06/04/2022 7:39 AM UX CONSULTANT 100 mg remifentanil (Ultiva) 2 mg in 0.9% NaCl IV 50 mL infusion Intravenous, CONTINUOUS PRN, Starting on Sat06/04/22 at 0749, Until Sat06/04/22 at 1144, Anesthesia Intra-op Rate Change 06/04/2022 11:04 AM UX CONSULTANT 0.02 mcg/kg/min 1.815 mL/hr Rate Change 06/04/2022 10:59 AM UX CONSULTANT 0.03 mcg/kg/min 2.723 mL/hr Rate Change 06/04/2022 10:54 AM UX CONSULTANT 0.1 mcg/kg/min 9.075 m L/hr succinylcholine (Anectine) injection Intravenous, PRN, Starting on Sat06/04/22 at 0741, Until Sat06/04/22 at 1144, Anesthesia Intra-op $ Given 06/04/2022 7:41 AM UX CONSULTANT 100 mg documented in this encounter Care Teams Net Programmer Analyst Relationship Specialty Start Date End Date Karrie Phillips MD [address] [place] [address] PCP - General 03/13/22 documented as of this encounter
--- OUTSIDE RECORDS SUMMARY | 2024-04-11 13:17 | XMS_ITS | Encounter Summary ---
Author Organization [facility] Address [address] [place] [address] Care Team Providers Care Sand Conditioner Name Role Phone Karrie Phillips MD Primary Care Provider [phone] Reason for Visit * Reason Comments Preop Exam Encounter Details Date Type Department Care Team (Late st Contact Info) Description 05/15/2022 2:30 PM ORACLE FUSION MIDDLEWARE ARCHITECT Office Visit [facility] - Orthopedics [address] [place] [address], [place] [address] Deon Taylor MD [address] [place] [phone] Cervical myelopathy (HCC) (Primary Dx) Social History [...] (135 lb 12.8 oz) 05/15/2022 1:57 PM ORACLE FUSION MIDDLEWARE ARCHITECT Height 154.9 cm (5' 1 ) 05/15/2022 1:57 PM ORACLE FUSION MIDDLEWARE ARCHITECT Body Mass Index 25.66 05/15/2022 1:57 PM ORACLE FUSION MIDDLEWARE ARCHITECT documented in this encounter Functional Status Functional [...] for further surgery, blood clots, PE, stroke, ID, paralysis, . After we reviewed of the risks andbenefits the patient wished to proceed with the surgery as planned. PROMIS Pain Interference 05/08/2022 03/13/2022 PROMIS PI Score 74 (severe) 67 (moderate) PROMIS Physical Function 05/08/2022 03/13/2022 PROMIS PF Score 24 (severe dysfunction) 25 (severe dysfunction) This note was transcribed using Nebula dictation software and may include inaccuracies in pot runner which were unrecognized and not corrected. Deon Taylor MD LE FUSION MIDDLEWARE ARCHITECT * Aleyda Rebollar MD - 05/15/2022 2:08 PM CST [facility] Orthopedic Spine Surgery Clinic Note Kandace Cole, 72 year old, female : 1950 CSN: [id number] Primary Care Physician: Karrie Phillips MD, MD [...] 200 MG tablet ??? saline nasal spray ([place]; Baby [place]) 0.65 % nasal spray No current facility-administered [...] needfor further surgery, blood clots, PE, stroke, ID, paralysis, . After we reviewed of the risks a nd benefits the patient wished to proceed with the surgery as planned. - Will plan to proceed with C3-T2 PISF with C5-6 laminectomies - Follow up for surgery Aleyda Rebollar MD 05/15/2022 LE FUSION MIDDLEWARE ARCHITECT documented in this encounter Plan of Treatment Upcoming Encounters Date Type Department Care Team (Late st Contact Info) Description 06/02/2024 1:45 PM ORACLE FUSION MIDDLEWARE ARCHITECT Office Visit [facility] - Orthopedics [address] [place] [address], [place] [address] Deon Taylor MD [address] [place] [address] documented as of this encounter Visit Diagnoses Diagnosis Cervical myelopathy (HCC)- Primary Cervical spondylosis with myelopathy documented in this encounter Care Teams Sand Conditioner Relationship Specialty Start Date End Date Karrie Phillips MD [address] [place] [address] PCP - General 03/13/22 documented as of this encounter
--- OUTSIDE RECORDS SUMMARY | 2024-04-11 13:17 | XMS_ITS | Encounter Summary ---
Author Organization [facility] Address [address] [facility] [place] [address] Care Team Providers Care Penology Teacher Name Role Phone Karrie Phillips MD Primary Care Provider [phone] Encounter Details Date Type Department Care Team (Latest Contact Info) Description 03/13/2022 12:49 PM DIRECTOR OF STAFF DEVELOPMENT - 03/13/2022 11:59 PM [facility] Hospital Encounter [facility] DI[facility]NOSTIC [facility] [address] [facility] [id number] Deon Taylor MD [address] [place] [address] Discharge Disposition: Home or Self Care Social [...] TABLET BY MOUTH DAILY saline nasal spray ([place]; Baby [place]) 0.65 % nasal spray [place] 1 (one) spray into each nostril as [...] st Contact Info) Description 06/02/2024 1:45 PM DIRECTOR OF STAFF DEVELOPMENT Office Visit [facility] - Orthopedics [address] [place] [address], [facility] [place] [address] Deon Taylor MD [address] [place] [address] documented as of this encounter Procedures Procedure Name Priority Date/Time Associated Diagnosis Comments XR CERVICAL SPINE 2 OR 3VW Routine 03/13/2022 1:02 PM DIRECTOR OF STAFF DEVELOPMENT Neck pain documented in this encounter Results * XR CERVICAL SPINE 2 OR 3VW (03/13/2022 1:02 PM DIRECTOR OF STAFF DEVELOPMENT) Anatomical Region Laterality Modality Spine Radiographic Vivian ging 03/13/2022 1:13 PM DIRECTOR OF STAFF DEVELOPMENT Impressions 03/13/2022 1:20 PM DIRECTOR OF STAFF DEVELOPMENT IMPRESSION: There is straightening of the cervical [...] 03/13/2022 1:20 PM Narrative 03/13/2022 1:20 PM DIRECTOR OF STAFF DEVELOPMENT PROCEDURE: ??XR CERVICAL SPINE 2 OR 3VW, DATE/TIME OF EXAM: ??03/13/2022 1:03 PM, LOCATION ??[facility] INDICATION: M54.2: Neck pain ADDITIONAL CLINICAL INFORMATION: Ordering Provider Reason For Exam: ??neck pain COMPARISON: CT dated 02/15/2022. Procedure Note Alejo Ahuja MD - 03/13/2022 PROCEDURE: XR CERVICAL SPINE 2 OR 3VW, DATE/TIME OF EXAM: 21:03 PM, LOCATION [facility] INDICATION: M54.2: Neck pain ADDITIONAL CLINICAL INFORMATION: [...] Cervicalgia documented in this encounter Care Teams Penology Teacher Relationship Specialty Start Date End Date Karrie Phillips MD [address] [place] [address] PCP - General 03/13/22 documented as of this encounter
--- OUTSIDE RECORDS SUMMARY | 2024-04-11 13:17 | XMS_ITS | Encounter Summary ---
Author Organization [facility] Address [address] [facility] [place] [address] Care Team Providers Care Fruit Trimmer Name Role Phone Unavailable Primary Care Provider Unavailabl e Reason for Visit * Reason Onset Date Comments Appointment 02/26/2022 Encounter Details Date Type Department Care Team (Late st Contact Info) Description 02/26/2022 Telephone [facility] [address] [facility], [place] [address] Anabell Avendaño, RN Appointment Social [...] Anabell Avendaño RN - 02/26/2022 12:26 PM SPRING REPAIRER HELPER HAND Scheduled pt for clinic appt with Dr. Taylor on 03/13. Provided her with clinic details and contact information to call with additional questions or concerns. NG REPAIRER HELPER HAND documented in this encounter Plan of Treatment Upcoming Encounters Date Type Department Care Team (Late st Contact Info) Description 06/02/2024 1:45 PM SPRING REPAIRER HELPER HAND Office Visit [facility] [address] [place] [address], [facility] [place] [address] Deon Taylor MD [address] [place] [address] documented as of this encounter Visit Diagnoses Not on filedocumented in this encounter
--- OUTSIDE RECORDS SUMMARY | 2024-04-11 13:17 | XMS_ITS | Encounter Summary ---
Author Organization [facility] Address [address] [place] [address] Care Team Providers Care Fitness Floor Attendant Name Role Phone Karrie Phillips MD Primary Care Provider [phone] Reason for Visit * Auth/Cert (Routine) Specialty Diagnoses / Procedures Referred By Everardo fried Referred To Contact Diagnoses Cervical myelopathy (HCC) cervical myelopathy Procedures FUSION POSTERIOR CERVICAL (PCF) Referral ID Status Reason Start Date Expiration Date Visits Re quested Visits Authorized [id number] 1 1 Encounter Details Date Type Department Care Team (Late st Contact Info) Description 06/04/2022 7:30 AM CANOE INSPECTOR FINAL - 06/04/2022 11:42 AM CANOE INSPECTOR FINAL Surgery [facility] [address] [place] [address] Deon Taylor MD [address] [place] [address] C5-C6 laminectomy, C4-T2 posterior instrumented spinal fusion Surgery Details Date/Time Status Location OR Service Patient Class Case Class Case Type Trauma Case? 06/04/2022 7:30 AM Posted [facility] OR OR Orthopedics Labor/Excavator Admit Surgical Elective > 5 days Panel 1 Procedure LRB Anes Op Region Wound Class Comments C5-C6 laminectomy, C4-T2 pos terior instrumented spinal fusion N/A General Clean Surgeon Surgeon Role Service Panel Deon Taylor MD Primary Orthopedics 1 Case Notes LATEX ALLERGY Special Needs PRONE, C-ARM CERVICAL ATTACHMENT JULIETH DONALD NEURO MONITORING POWER:4mm jose, 4mm cutter, 2mm cutter DEPUY: DELILAH MCGINNIS [phone]; EMERSON CUNN[place]AM [phone]--reps notified mk 06/01 documented in this encounter [...] and heating? Not hard at all 06/04/2022 [facility] - [...] Comments Blood Pressure 112/62 06/04/2022 6:30 AM CANOE INSPECTOR FINAL Pulse 86 06/04/2022 6:30 AM CANOE INSPECTOR FINAL Temperature 36.7 ??C (98 ??F) 06/04/2022 6:22 AM CANOE INSPECTOR FINAL Respiratory Rate 19 06/04/2022 6:30 AM CANOE INSPECTOR FINAL Oxygen Saturation - - Inhaled Oxygen Concentration - - Weight 60.5 kg (133 lb 6.4 oz) 06/04/2022 5:52 A M CANOE INSPECTOR FINAL Height 154.9 cm (5' 1 ) 06/04/2022 5:52 AM CANOE INSPECTOR FINAL Body Mass Index 25.21 06/04/2022 5:52 AM CANOE INSPECTOR FINAL documented in this encounter Functional Status Functional [...] Physician Discharge Summary Patient ID: Kandace Cole [id number] 72 year old 1950 Admit date: 06/04/2022 [...] PT/OT who are recommending rehab. Discharged to [facility]. ?? Consults: Orthopedics [...] 0.65 % nasal spray Commonly known as: R[place]; Baby Macon Riggins 1 (one) spray into each nostril as [...] sure to ask the pharmacy when you picking machine operator your prescription. You may also call your primary provider to ask if you should be taking your medication. FOLLOW-UP: It is important that you follow-up with all appointments that have been made on your behalf. These appointments include: Future Appointments Monday June 20, 2022 8:45 AM Appointment with Deon Taylor at [facility] 1L ([phone]) [address] [facility] [phone] If a follow-up with your primary care provider has not been scheduled, please schedule an appointment to follow-up on your hospitalization. If there is a conflict, please call the clinic ahead of time and reschedule the appointment. Regards, Internal Medicine Department [facility] [address] [place] [address] Orthopedic Spine Surgery Patient Discharge Instructions [...] please call 911. Follow up Contact Information: [facility] Orthopedic Surgery office contact information: [facility] Special[facility] ([facility]) [address] [facility], 1st [place] [address] [facility] [address] [facility], [address] [place] [address] Visit our website at [email or web address].[facility] for information about our practice and an interactive health encyclopedia. Please visit [email or web address] to access your health record, ask questions, request medication refills, and request appointments for non-urgent needs after you have configured your [employer] account. If you do not currently have access, please contact one of our staff members or call [phone]. For after hour emergencies, please call and press 0 for the humidifier operator in order to page the orthopedic resident demolition expert. This list of medications is preliminary and [...] TABLET BY MOUTH DAILY saline nasal spray (Ritzville; Baby Macon) 0.65 % nasal spray Riggins 1 (one) spray into each nostril as [...] Tammi Perez MD, 06/08/2022 at 3:12 PM E INSPECTOR FINAL Associated attestation - Ama Gonzalez MD - 06/08/2022 7:17 PM CANOE INSPECTOR FINAL I have verified the documentation and discharge [...] Tammi Perez MD - 06/07/2022 11:07 AM CANOE INSPECTOR FINAL A Note From Your Doctors: Dear Kandace [...] 0.65 % nasal spray Commonly known as: R[place]; Baby Macon Riggins 1 (one) spray into each nostril as [...] sure to ask the pharmacy when you picking machine operator your prescription. You may also call your primary provider to ask if you should be taking your medication. FOLLOW-UP: It is important that you follow-up with all appointments that have been made on your behalf. These appointments include: Future Appointments Monday June 20, 2022 8:45 AM Appointment with Deon Taylor at [facility] 1L ([phone]) [address] [place] [phone] If a follow-up with your primary care provider has not been scheduled, please schedule an appointment to follow-up on your hospitalization. If there is a conflict, please call the clinic ahead of time and reschedule the appointment. Regards, Internal Medicine Department [facility] [address] [place] [address] Orthopedic Spine Surgery Patient Discharge Instructions [...] incision covered until your follow up appointment. --Sutures/[place]: to be removed at your next clinic [...] an appointment. For medical emergencies, please call [phone]. Follow up Contact Information: [facility] Orthopedic Surgery office contact information: [facility] ([facility]) [address] [place] [address], 1st [place] [address] [facility] [address] [facility], [address] [place] [address] Visit our website at [email or web address].[facility] for information about our practice and an interactive health encyclopedia. Please visit [employer] to access your health record, ask questions, request medication refills, and request appointments for non-urgent needs after you have configured your [employer] account. If you do not currently have access, please contact one of our staff members or call [phone]. For after hour emergencies, please call and press 0 for the humidifier operator in order to page the orthopedic resident demolition expert. E INSPECTOR FINAL documented in this encounter Medications at Time [...] mouth every evening 06/08/2022 saline nasal spray (Ritzville; Baby Macon) 0.65 % nasal spray Riggins 1 (one) spray into each nostril as [...] to allow for safe mobility Outcome: Progressing E INSPECTOR FINAL * Makenzie Choi RN - 06/08/2022 3:57 [...] 1420 by Makenzie Choi RN Outcome: Progressing E INSPECTOR FINAL * Charissa Murphy - 06/08/2022 2:52 PM CST Facility Transfer Note Level of Care: Actual level of care at discharge: Acute Rehab Facility Facility Name: (include name of person confirming admission): Actual discharge provider: [facility] [place] Made Aware of Special Needs (if applicable): n/a RN Call Report to:[phone] Fax D/C Orders to:[phone] MD to MD: Dr Baldwin [phone] Transportation (company and number): [facility]: [phone] Certificate of Medical Necessity rationale: weakness, impaired mobility, unsteady gait, spinal precautions Date/time of transfer: 06-08-22 @ Accepting MD and contact #: Denny Completed and Signed [id number] (if applicable): n/a Family/Other Notified of Transfer (name/phone): patient Authorization Skilled Care: Authorization for Transportation: Verified Qualifying Stay(Skilled Only): NOT APPLICABLE Comments: Name/Phone number: Charissa Murphy [phone] E INSPECTOR FINAL * Joanna Easley PT - 06/08/2022 2:24 PM CST [facility] Physical Medicine and Rehabilitation Physical Therapy Progress Note Patient: Kandace Cole [facility] Record Number: [id number] Date of : 1950 Age: [age] year [...] as Tolerated Spine Precautions: Yes Spine Precautions: Curtice OBJECTIVE: At start of therapy session, patient [...] ambulate??75??feet with minimal assist??and appropriate AD ?? Chairman And Chief Executive Officer Goal(s): Patient to discharge to appropriate next [...] light within reach, with Makenzie HANCOCK aware. E INSPECTOR FINAL * Makenzie Choi RN - 06/08/2022 2:20 [...] to allow for safe mobility Outcome: Progressing E INSPECTOR FINAL * Annemarie Collazo COTA - 06/08/2022 2:04 PM CST [facility] Physical Medicine and Rehabilitation Occupational Therapy Progress Note Patient: Kandace Cole [facility] Record Number: [id number] Date of : 1950 Age: [age] year [...] perform bed to chair??with stand by assist [facility] Goal(s): Patient to discharge to appropriate next [...] with therapy cues visible on white board. E INSPECTOR FINAL * Cammy Aleman RN - 06/08/2022 12:51 [...] Brother Secondary Emergency Contact: Barbara Cisneros Address: [place], [place] Relation: Other Transportation at Discharge: Family [...] get more.: Never true Medication affordability concerns: [place]: Cammy Aleman RN Case web manager: [phone] 06/08/2022 E INSPECTOR FINAL * Tammi Perez MD - 06/08/2022 10:20 AM CST Internal Medicine Progress Note Patient: Kandace Cole (:1950) Room: [facility] Date of admission: 06/04/2022 No of days [...] results for input(s): MG in the last 82735 hours. Phosphorus: Recent Labs Component Name 06/08/2221206/07/2222306/06/22306 PHOS 2.5* 2.7* 3.2 Coagulation: No results for input(s): PT, INR, PTT in the last 59563 hours. Micro Microbiology Results (Displays last 21 [...] ? Tammi Perez MD PGY-3 Internal Medicine E INSPECTOR FINAL Associated attestation - Ama Gonzalez MD - 06/08/2022 10:42 PM CANOE INSPECTOR FINAL I have verified the documentation of the [...] Easley PT - 06/08/2022 10:15 AM CST [facility] Department of Physical Medicine & Rehabilitation Progress Note Patient: Kandace Cole Med Record Number: [id number] Date of : 1950 Age: [age] year old 06/08/22 1015 Missed Visit Missed Visit Other (Comment) (Patient just back to bed. Requested therapy at later time.) E INSPECTOR FINAL * Charissa Murphy - 06/08/2022 9:55 AM CST Saturday Summary Note Discharge Level of Care: Rehab Discharge Destination:[facility] Phone Number: (Tracey peña) Fax Number: Insurance Auth:auth will need to be done as patient has [facility] Anticipated Mode of Transportation: to be determined (EMS) or person vehicle Contacts (Name, relationship, phone #): Anticipated DC Date: patient is ready for disposition Pending Needs: review from rehab for acceptance and authorization will need to be done. Comments: Liaison is aware of this referral and will review. SW was called by [employer] [phone] saying to call them as two rehab's have put in request ([facility] and [facility]) DASHAWN informed that [facility] has been the chosen provider and never spoke to anyone at [facility]. Care Rep with [facility] informed DASHAWN that it's currently under review. DASHAWN provided contact information for financial sales representative to call back once decision has been made. Charissa Murphy Phone [phone] 06/08/2022 E INSPECTOR FINAL * Heather Sethi - 06/08/2022 8:52 AM CST Internal Medicine Progress Note Patient: Kandace Cole (:1950) Room: [facility]/ Date of admission: 06/04/2022 No of days [...] results for input(s): MG in the last 63735 hours. Phosphorus: Recent Labs Component Name 06/08/2221206/07/2222306/06/22 030 PHOS 2.5* 2.7* 3.2 Coagulation: No results for input(s): PT, INR, PTT in the last 27815 hours. Micro Microbiology Results (Displays last 21 [...] is HDS. Heather Sethi MS3 Internal Medicine E INSPECTOR FINAL Associated attestation - Ama Gonzalez MD - 06/08/2022 7:11 PM CANOE INSPECTOR FINAL I have verified the documentation of the medical student. This note is for educational purposes only. Please refer to the resident's note for complete note for details and my assessment. Ama Gonzalez MD 06/08/2022 * Joey Dickens MD - 06/08/2022 5:50 AM CST [facility] Orthopedic Spine Surgery Daily Progress Note Kandace Cole, 72 year old, female : 1950 CSN: [id number] Primary Care Physician: Karrie Phillips MD, MD [...] for input(s): PT, INR in the last 84514 hours. No results for input(s): PTT in the last 31335 hours. Cultures No results found for this or any previous visit (from the past 248 hour(s)). Physical Exam General: Awake, alert, follows commands, in no acute distress Neck: - C-collar/Cook J: Present - Tenderness to palpation: Deferred [...] concerns Joey Dickens MD 06/08/2022 5:50 AM E INSPECTOR FINAL * Vviian Boo RN - 06/07/2022 10:43 PM CST [...] at normal rate and depth. Outcome: Progressing E INSPECTOR FINAL * Ama Gonzalez MD - 06/07/2022 10:38 [...] Tammi Perez MD ??? saline nasal spray (Ritz[place]; Baby Macon) 0.65 % nasal spray 2 spray 2 [...] input(s): PT, INR, APTT in the last 39572 hours. Recent Labs Component Name 06/07/22 0224 [...] and Palliative Medicine Attending 06/07/2022 10:39 PM E INSPECTOR FINAL * Makenzie Choi RN - 06/07/2022 6:28 [...] to allow for safe mobility Outcome: Progressing E INSPECTOR FINAL * Daniella Le, PT - 06/07/2022 2:30 PM CST [facility] Physical Medicine and Rehabilitation Physical Therapy Progress Note Patient: Kandace Cole [facility] Record Number: [id number] Date of : 1950 Age: [age] year [...] (in C-collar) Spine Precautions: Yes Spine Precautions: Curtice OBJECTIVE: At start of therapy session, patient [...] feet with minimal assist and appropriate AD Chairman And Chief Executive Officer Goal(s): Patient to discharge to appropriate next [...] on , with call light within reach. E INSPECTOR FINAL * Sherrie Boyer, OT - 06/07/2022 1:48 PM CST [facility] Physical Medicine and Rehabilitation Occupational Therapy Progress Note Patient: Kandace Cole Med Record Number: [id number] Date of : 1950 Age: [age] year [...] to chair with stand by assist ?? Chairman And Chief Executive Officer Goal(s): Patient to discharge to appropriate next [...] call light within reach, with RNMigdalia aware. E INSPECTOR FINAL * Charissa Murphy - 06/07/2022 10:43 AM CST DASHAWN rec'd call from [facility]) to say Cadence will be here to assess patient. If patient isin agreement to going, auth will be initiated. SW to wait for liaison to come and patient to make determination on rehab choice. ISELA Hensley Care Coordination Redipper E INSPECTOR FINAL * Heather Sethi - 06/07/2022 10:12 AM CST Internal Medicine Progress Note Patient: Kandace Cole (:1950) Room: [facility] Date of admission: 06/04/2022 No of days [...] results for input(s): MG in the last 73991 hours. Phosphorus: Recent Labs Component Name 06/07/22 0224 06/06/22 0307 02/16/22 0757 PHOS 2.7* 3.2 3.9 Coagulation: No results for input(s): PT, INR, PTT in the last 91805 hours. Micro Microbiology Results (Displays last 21 [...] is HDS. Heather Sethi MS3 Internal Medicine E INSPECTOR FINAL Associated attestation - Ama Gonzalez MD - 06/07/2022 10:37 PM CANOE INSPECTOR FINAL I have verified the documentation of the medical student. This note is for educational purposes only. Please refer to the resident's note for complete note for details and my assessment. Ama Gonzalez MD 06/07/2022 * Joey Dickens MD - 06/07/2022 5:31 AM CST [facility] Orthopedic Spine Surgery Daily Progress Note Kandace Cole, 72 year old, female : 1950 [facility]: [id number] Primary Care Physician: Karrie Phillips MD, MD [...] for input(s): PT, INR in the last 05680 hours. No results for input(s): PTT in the last 29685 hours. Cultures No results found for this or any previous visit (from the past 248 hour(s)). Physical Exam General: Awake, alert, follows commands, in no acute distress Neck: - C-collar/Cook J: Present - Tenderness to palpation: Deferred [...] concerns Joey Dickens MD 06/07/2022 5:31 AM E INSPECTOR FINAL Associated attestation - Deon Taylor MD - 06/07/2022 4:44 PM CANOE INSPECTOR FINAL I have seen and evaluated the patient [...] found in the flowsheet documentation) Outcome: Progressing E INSPECTOR FINAL * Annemarie Collazo COTA - 06/06/2022 3:59 PM CST [facility] Department of Physical Medicine & Rehabilitation Progress Note Patient: Kandace Cole [facility] Record Number: [id number] Date of : 1950 Age: [age] year old 06/06/22 1017 Missed Visit Missed Visit RN Cancel (Pt receiveing blood) E INSPECTOR FINAL * Heather Sethi - 06/06/2022 1:56 PM CST Internal Medicine Progress Note Patient: Kandace Cole (:1950) Room: [facility] Date of admission: 06/04/2022 No of days [...] results for input(s): MG in the last 08646 hours. Phosphorus: Recent Labs Component Name 06/06/2230602/16/227 PHOS 3.2 3.9 Coagulation: No results for input(s): PT, INR, PTT in the last 55037 hours. Micro Microbiology Results (Displays last 21 [...] ml of 5% albumin. She was m hcarles to the LENNIE team morning of 06/05 [...] is HDS. Heather Sethi MS3 Internal Medicine E INSPECTOR FINAL Associated attestation - Ama Gonzalez MD - 06/06/2022 8:42 PM CANOE INSPECTOR FINAL I have verified the documentation of the medical student. This note is for educational purposes only. Please refer to the resident's note for complete note for details and my assessment. Ama Gonzalez MD 06/06/2022 * Joanna Easley, PT - 06/06/2022 10:00 AM CST [facility] Department of Physical Medicine & Rehabilitation Progress Note Patient: Kandace Cole Med Record Number: [id number] Date of : 1950 Age: [age] year old 06/06/22 1000 Missed Visit Missed Visit RN Cancel (Patient receiving blood) E INSPECTOR FINAL * Tammi Perez MD - 06/06/2022 9:01 AM CST Internal Medicine Progress Note Patient: Kandace Cole (:1950) Room: [facility] Date of admission: 06/04/2022 No of days [...] results for input(s): MG in the last 09823 hours. Phosphorus: Recent Labs Component Name 06/06/2230602/16/22756 PHOS 3.2 3.9 Coagulation: No results for input(s): PT, INR, PTT in the last 28978 hours. Micro Microbiology Results (Displays last 21 [...] ? Tammi Perez MD PGY-3 Internal Medicine E INSPECTOR FINAL Associated attestation - Ama Gonzalez MD - 06/06/2022 9:13 PM CANOE INSPECTOR FINAL I have verified the documentation of the [...] falls and polypharmacy, who was admitted to [facility] spine 06/04 for a planned cervical-thoracic posterior [...] 72 year old, female : 1950 CSN: [id number] Primary Care Physician: Karrie Phillips MD, MD [...] for input(s): PT, INR in the last 63294 hours. No results for input(s): PTT in the last 46564 hours. Cultures No results found for this or any previous visit (from the past 248 hour(s)). Physical Exam General: Awake, alert, follows commands, in no acute distress Neck: - C-collar/Cook J: Present - Tenderness to palpation: Deferred [...] concerns Joey Dickens MD 06/06/2022 8:08 AM E INSPECTOR FINAL Associated attestation - Deon Taylor MD - 06/06/2022 12:41 PM CANOE INSPECTOR FINAL I have seen and evaluated the patient [...] to allow for safe mobility Outcome: Progressing E INSPECTOR FINAL * Slim Camacho RN - 06/05/2022 11:00 [...] to allow for safe mobility Outcome: Progressing E INSPECTOR FINAL * Tammi Perez MD - 06/05/2022 4:34 PM CST Internal Medicine Progress Note Patient: Kandace Cole (:1950) Room: [facility]/ Date of admission: 06/04/2022 No of days [...] results for input(s): MG in the last 64509 hours. Phosphorus: Recent Labs Component Name 02/16/22 0757 PHOS 3.9 Coagulation: No results for input(s): PT, INR, PTT in the last 43309 hours. Micro Microbiology Results (Displays last 21 [...] ? Tammi Perez MD PGY-3 Internal Medicine E INSPECTOR FINAL Associated attestation - Ama Gonzalez MD - 06/05/2022 8:56 PM CANOE INSPECTOR FINAL I have verified the documentation of the [...] falls and polypharmacy, who was admitted to [facility] spine 06/04 for a planned cervical-thoracic posterior [...] patient's preference is to stay within the [facility] and its affiliates.: Unsure Comments: Lives with: Other (Comment) (Grandson) Physical Limitations: None Independent with the use of a ww Requires Assistance With: None Preferred Pharmacy: [facility] - [address] [facility] [id number] [address] [facility] [id number] Advance Directive: No Advance Directive Information Given: Not Applicable Would you like assistance on completing and executing or revising an Advance Directive?: No Payer/Plan Subscriber Name Rel Member # Group # [facility] MANAGED MEDICARE * KANDACE COLE [id number] [id number] 16 at 4:08 PM 06/05/2022. Met with patient Family Support (name and phone): Extended Emergency Contact Information Primary Emergency Contact: BARBARA CISNEROS Mobile Relation: Brother Secondary Emergency Contact: Barbara Cisneros Address: [place]OTHER [place], [place] Relation: Other Patient or financial sales representative requests care coordination reach out [...] pt. requires but does not have.: None Redipper Referral: Yes -Placement Will continue to follow. For any questions or needs please contact: Acoustics Teacher Name/Phone number: Cammy Aleman RN Case web manager: [phone] 06/05/2022 E INSPECTOR FINAL * Heather Sethi - 06/05/2022 2:44 PM CST Internal Medicine Progress Note Patient: Kandace Cole (:1950) Room: [facility] Date of admission: 06/04/2022 No of days [...] results for input(s): MG in the last 68757 hours. Phosphorus: Recent Labs Component Name 02/16/22 0757 PHOS 3.9 Coagulation: No results for input(s): PT, INR, PTT in the last 30639 hours. Micro Microbiology Results (Displays last 21 [...] is HDS. Heather Sethi MS3 Internal Medicine E INSPECTOR FINAL Associated attestation - Ama Gonzalez MD - 06/05/2022 11:04 PM CANOE INSPECTOR FINAL I have verified the documentation of the [...] Achieves restful, refreshing sleep pattern. Outcome: Progressing E INSPECTOR FINAL * Sandra Brown, PT - 06/05/2022 10:27 AM CST [facility] Physical Medicine and Rehabilitation Physical Therapy Initial Evaluation Note Patient: Kandace Cole [facility] Record Number: [id number] Date of : 1950 Age: [age] year [...] Migraine Ulnar neuropathy Type 2 diabetes mellitus ([facility]/HCC) Type 2 diabetes mellitus with stage 3 chronic kidney disease, without long-term current use of insulin ([facility]) Temporomandibular joint disorder Systemic sclerosis ([facility]/HCC) Sprain of ankle Sciatica Recurrent major depression in remission ([facility]) Raynaud's disease Primary fibromyalgia syndrome Polyp of colon Perineal pain Paronychia of toe of right foot Onychomycosis of toenail Nonexudative 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 Anemia ??? Ferrell's esophagus ??? CKD (chronic kidney disease), stage III ([facility]) ??? Diabetes ??? Disease of esophagus ??? [...] feet with minimal assist and appropriate AD Chairman And Chief Executive Officer Goal(s): Patient to discharge to appropriate next [...] reach, with RNMigdalia, aware. All lines intact. E INSPECTOR FINAL * Olimpia Adames OT - 06/05/2022 10:22 AM CST [facility] Physical Medicine and Rehabilitation Occupational Therapy Initial Evaluation Note Patient: Kandace Cole Med Record Number: [id number] Date of : 1950 Age: [age] year [...] closed fractures of facial bone, initial encounter ([facility]) Abdominal pain Abnormal serum creatinine level Anemia Ferrlel's esophagus Cardiomegaly Chronic kidney disease Chronic obstructive pulmonary disease ([facility]) Chronic depression Dyspnea on exertion Benign essential hypertension Glaucoma Hyperkalemia Hyposmolality Hyperthyroidism Hypothyroidism Intractable chronic migraine without aura Iron deficiency anemia Leukocytosis Macular degeneration Migraine Ulnar neuropathy Type 2 diabetes mellitus ([facility]) Type 2 diabetes mellitus with stage 3 chronic kidney disease, without long-term current use of insulin ([facility]) Temporomandibular joint disorder Systemic sclerosis ([facility]) Sprain of ankle Sciatica Recurrent major depression in remission ([facility]) Raynaud's disease Primary fibromyalgia syndrome Polyp of colon Perineal pain Paronychia of toe of right foot Onychomycosis of toenail Nonexudative 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 Anemia ??? Ferrell's esophagus ??? CKD (chronic kidney disease), stage III ([facility]) ??? Diabetes ??? Disease of esophagus ??? [...] ACTIVITY TOLERANCE: Patient's activity tolerance: fair. Modified [place]: TREATMENT / EDUCATION / INTERVENTIONS: While performing [...] bed to chair with stand by assist [facility] Goal(s): Patient to discharge to appropriate next [...] light within reach, with RN, Migdalia aware. E INSPECTOR FINAL * Joey Dickens MD - 06/05/2022 6:53 AM CST [facility] Orthopedic Spine Surgery Daily Progress Note Kandace Cole, 72 year old, female : 1950 CSN: [id number] Primary Care Physician: Karrie Phillips MD, MD [...] for input(s): PT, INR in the last 59724 hours. No results for input(s): PTT in the last 28419 hours. Cultures No results found for this or any previous visit (from the past 248 hour(s)). Physical Exam General: Awake, alert, follows commands, in no acute distress Neck: - C-collar/Cook J: Present - Tenderness to palpation: Deferred [...] concerns Joey Dickens MD 06/05/2022 6:53 AM E INSPECTOR FINAL Associated attestation - Deon Taylor MD - 06/05/2022 4:23 PM CANOE INSPECTOR FINAL I have seen and evaluated the patient [...] Achieves restful, refreshing sleep pattern. Outcome: Progressing E INSPECTOR FINAL * Yaritza Lynch RN - 06/04/2022 2:46 [...] Achieves restful, refreshing sleep pattern. Outcome: Progressing E INSPECTOR FINAL * Padma Morales MD - 06/04/2022 11:51 [...] Activity: as tolerated from ortho perspective in [place] collar 2. PT/OT 3. Pain Control- oral medications 4. DVT Prophylaxis: ambulation, SCDs 5. Drains? HV x1 6. Continue perioperative ancef 7. Admit to floor under Ortho Spine 8. Please page Ortho Spine with any additional questions or concerns Padma Morales MD 06/04/2022 4:23 PM E INSPECTOR FINAL documented in this encounter H&P Notes * Padma Morales MD - 06/04/2022 5:28 AM CST Orthopedic Spine Surgery H&P Note Kandace Cole, 72 year old, female : 1950 CSN: [id number] Diagnosis/Procedures 1.) Cervical myelopathy Today's Date: 06/04/2022 [...] concerns Padma Morales MD 06/04/2022 5:28 AM E INSPECTOR FINAL Associated attestation - Deon Taylor MD - 06/04/2022 7:15 AM CANOE INSPECTOR FINAL I have seen and evaluated the patient and agree with the resident's assessment and plan as stated above. I have independently reviewed all imaging studies. Deon Taylor MD documented in this encounter Consult Notes * Charissa Murphy - 06/06/2022 4:02 PM CSTAssociated Order(s): IP CONSULT TO CLINICAL TECH SW newly assigned and following for placement and disposition. SW acknowledge referral for placement in facility. SW was informed that patient will need rehab. SW made referrals. 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 Weight hx limited; RD noted 6.5% [...] Pain affecting intake: No Estimated Needs: KCAL: 2892-7514 (25-30 kcal/kg ABW) Protein (g): 90 (1.5 [...] Goal Progress: New goal established Ascom: 4533 E INSPECTOR FINAL * Adolph Juarez, BRADLEY-CERTIFIED FORKLIFT OPERATOR - 06/04/2022 2:17 PM CSTAssociated Order(s): [...] Social: Lives at home with grandson in [facility]. Does not smoke or drink. Has [...] 200 MG tablet ??? saline nasal spray ([place]; Baby Macon) 0.65 % nasal spray RCS: Memory very [...] mouth once daily ??? saline nasal spray ([place]; Baby Macon) 0.65 % nasal spray Riggins 1 (one) spray into each nostril as [...] Housing Stability: Not on file Family History: [place] Review of Systems: General: denies recent illness [...] input(s): PT, INR, APTT in the last 01312 hours. Cardiac markers: Recent Labs Component Name [...] if needed PT/OT recs: Pending Transferring to [facility] team 06/05 at 0700 Thank you for this consult. We will continue to follow along with you. Please call with questions. Please note, recommendations are not final until co-signed/attested by attending Patient was seen and discussed with attending, Dr. Favio Juarez, ANP-, Geriatrics 06/04/2022 2:17 PM Pager: [phone] E INSPECTOR FINAL Associated attestation - Dorothy Stahl MD - 06/04/2022 10:04 PM CANOE INSPECTOR FINAL I have verified the documentation of the INSTRUCTIONAL COORDINATOR including all history, exam, and medical decision-making [...] Social: Lives at home with grandson in [facility]. Does not smoke or drink. Has [...] (SEROquel) 200 MG tablet saline nasal spray ([place]; Baby Macon) 0.65 % nasal spray RCS: Memory very [...] by mouth once daily saline nasal spray ([place]; Baby Macon) 0.65 % nasal spray Riggins 1 (one) spray into each nostril as [...] input(s): PT, INR, APTT in the last 99131 hours. Cardiac markers: Recent Labs Component Name [...] senna). -Falls/Aspiration precautions. -Rest of plan per INSTRUCTIONAL COORDINATOR note. Thank you for this consult. We will continue to follow along with you. Please call with questions. Keely Stahl MD Geriatric attending Pager: [phone] documented in this encounter OR Notes * Brief Op Note - Padma Morales MD - 06/04/2022 8:42 AM CST Brief Op Note Procedure: C5-C6 laminectomy, C4-T2 posterior instrumented spinal fusion Patient Name: Kandace Cole Date of Service: 06/04/2022 Pre-Op Diagnosis: cervical myelopathy Post-Op Diagnosis: Same as above Surgeon(s) and Role: * Deon Taylor MD - Primary Patrol Conductor(s): Padma Morales MD - Resident - Assisting [...] Implant Name Type Inv. Item Serial No. Nylon Mender Lot No. LRB No. Used Action Jean Bone Void 10Ml Dbm Grftn Algrf Ptty Jean Bone Void 10Ml Dbm Grftn Algrf Ptty Medtronic Inc [id number] N/A 1 Implanted Jean Bone Void 10Ml Dbm Grftn Algrf Ptty Jean Bone Void 10Ml Dbm Grftn Algrf Ptty Medtronic Inc [id number] N/A 1 Implanted Graft Bone Canc 4-9.5Mm 15Cc Frzdr Chp Graft Bone Canc 4-9.5Mm 15Cc Frzdr Chp Allosource [id number] 1 Implanted Graft Bone Canc 4-9.5Mm 30Cc Algrf Frzdr Graft Bone Canc 4-9.5Mm 30Cc Algrf Frzdr [employer]osource [id number] N/A 1 Implanted 3.5 x 14mm screw Synthes Spine N/A 4 Implanted 4.0x 20mm screw Synthes Spine N/A 2 Implanted 5.0 x 24mm screw Synthes Spine N/A 2 Implanted 4.5 x 26mm screw Synthes Spine N/A 2 Implanted screw caps Synthes Spine N/A 10 Implanted 90mm rods [employer] Spine N/A 2 Implanted Padma Morales MD E INSPECTOR FINAL * Operative - Deon Taylor MD - 06/04/2022 8:42 AM CST Kandace Cole 1950 Date of Surgery 06/04/22 PREOPERATIVE DIAGNOSIS: cervical myelopathy POSTOPERATIVE DIAGNOSIS: same PROCEDURES: 1. Cervical Laminectomy C5/6 with partial medial facetectomies (59259) 2. Posterior Arthrodesis C4-T2 (78148, 72199u3) 3. Posterior instrumentation C4-T2 (41383) 4. Application of local autograft and allograft (, 89188) 5. Application and removal of cranial tongs () SURGEON: Deon Taylor MD CONTACT CENTER ENGINEER: Varun Matute MD ANESTHESIA: General. COMPLICATIONS: None. [...] for further surgery, blood clots, PE, stroke, HI,paralysis, . After we reviewed of the risks [...] the appropriate lines and leads were placed [email or web address] tongs were positioned over the center rotation [...] C6 and gently pulled posteriorly while a Dequincy and Kerrison 2 were used to divide [...] SSEPs remained stable throughout. Deon Taylor MD E INSPECTOR FINAL documented in this encounter Plan of Treatment Upcoming Encounters Date Type Department Care Team (Late st Contact Info) Description 06/02/2024 1:45 PM CANOE INSPECTOR FINAL Office Visit [facility] - Orthopedics [address] [facility] [place] [id number] Deon Taylor MD [facility] [place] [address] documented as of this encounter Procedures Procedure Name Priority Date/Time Associated Diagnosis Comments XR THORACIC SPINE 2VW Routine 07/18/2022 11:04 AM CDT Degeneration of cervical intervertebral disc GLUCOSE - POINT OF CARE Routine 06/08/2022 7:47 AM CANOE INSPECTOR FINAL CBC W/O DIFFERENTIAL Routine 06/08/2022 2:13 AM CANOE INSPECTOR FINAL Degeneration of cervical intervertebral disc BASIC METABOLIC PANEL (CALCIUM TOTAL) Routine 06/08/2022 2:13 AM CANOE INSPECTOR FINAL Degeneration of cervical intervertebral disc PHOSPHORUS BLOOD Routine 06/08/2022 2:13 AM CANOE INSPECTOR FINAL MAGNESIUM BLOOD Routine 06/08/2022 2:13 AM CANOE INSPECTOR FINAL GLUCOSE - POINT OF CARE Routine 06/07/2022 11:25 PM CANOE INSPECTOR FINAL GLUCOSE - POINT OF CARE Routine 06/07/2022 9:31 PM CANOE INSPECTOR FINAL GLUCOSE - POINT OF CARE Routine 06/07/2022 5:52 PM CANOE INSPECTOR FINAL GLUCOSE - POINT OF CARE Routine 06/07/2022 12:00 PM CANOE INSPECTOR FINAL GLUCOSE - POINT OF CARE Routine 06/07/2022 8:21 AM CANOE INSPECTOR FINAL CBC W/O DIFFERENTIAL Routine 06/07/2022 2:24 AM CANOE INSPECTOR FINAL Degeneration of cervical intervertebral disc BASIC METABOLIC PANEL (CALCIUM TOTAL) Routine 06/07/2022 2:24 AM CANOE INSPECTOR FINAL Degeneration of cervical intervertebral disc PHOSPHORUS BLOOD Routine 06/07/2022 2:24 AM CANOE INSPECTOR FINAL MAGNESIUM BLOOD Routine 06/07/2022 2:24 AM CANOE INSPECTOR FINAL GLUCOSE - POINT OF CARE Routine 06/06/2022 8:38 PM CANOE INSPECTOR FINAL GLUCOSE - POINT OF CARE Routine 06/06/2022 5:02 PM CANOE INSPECTOR FINAL GLUCOSE - POINT OF CARE Routine 06/06/2022 12:26 PM CANOE INSPECTOR FINAL TRANSFUSE RED BLOOD CELL LEUKOREDUCED UNIT(S) Routine 06/06/2022 9:42 AM CANOE INSPECTOR FINAL PREPARE RBC LEUKOREDUCED UNIT Routine 06/06/2022 9:36 AM CANOE INSPECTOR FINAL GLUCOSE - POINT OF CARE Routine 06/06/2022 8:00 AM CANOE INSPECTOR FINAL PTH INTACT W/O CALCIUM AM Draw 06/06/2022 3:07 AM CANOE INSPECTOR FINAL HEMOGLOBIN A1C Routine 06/06/2022 3:07 AM CANOE INSPECTOR FINAL VITAMIN D 25-HYDROXY AM Draw 06/06/2022 3:07 AM CANOE INSPECTOR FINAL CBC W/O DIFFERENTIAL Routine 06/06/2022 3:07 AM CANOE INSPECTOR FINAL Degeneration of cervical intervertebral disc BASIC METABOLIC PANEL (CALCIUM TOTAL) Routine 06/06/2022 3:07 AM CANOE INSPECTOR FINAL Degeneration of cervical intervertebral disc PHOSPHORUS BLOOD Routine 06/06/2022 3:07 AM CANOE INSPECTOR FINAL MAGNESIUM BLOOD Routine 06/06/2022 3:07 AM CANOE INSPECTOR FINAL FOLATE Routine 06/06/2022 3:07 AM CANOE INSPECTOR FINAL VITAMIN B12 AM Draw 06/06/2022 3:07 AM CANOE INSPECTOR FINAL IRON + TRANSFERRIN PANEL Routine 06/06/2022 3:07 AM CANOE INSPECTOR FINAL FERRITIN Routine 06/06/2022 3:07 AM CANOE INSPECTOR FINAL GLUCOSE - POINT OF CARE Routine 06/05/2022 8:51 PM CANOE INSPECTOR FINAL GLUCOSE - POINT OF CARE Routine 06/05/2022 5:59 PM CANOE INSPECTOR FINAL GLUCOSE - POINT OF CARE Routine 06/05/2022 4:27 PM CANOE INSPECTOR FINAL GLUCOSE - POINT OF CARE Routine 06/05/2022 12:37 PM CANOE INSPECTOR FINAL CBC W/O DIFFERENTIAL Timed 06/05/2022 12:32 PM CANOE INSPECTOR FINAL XR CERVICAL SPINE 2 OR 3VW Routine 06/05/2022 9:35 AM CANOE INSPECTOR FINAL Degeneration of cervical intervertebral disc GLUCOSE - POINT OF CARE Routine 06/05/2022 8:39 AM CANOE INSPECTOR FINAL CBC W/O DIFFERENTIAL Routine 06/05/2022 4:58 AM CANOE INSPECTOR FINAL Degeneration of cervical intervertebral disc BASIC METABOLIC PANEL (CALCIUM TOTAL) Routine 06/05/2022 4:58 AM CANOE INSPECTOR FINAL Degeneration of cervical intervertebral disc GLUCOSE - POINT OF CARE Routine 06/04/2022 8:20 PM CANOE INSPECTOR FINAL GLUCOSE - POINT OF CARE Routine 06/04/2022 11:51 AM CANOE INSPECTOR FINAL FL JOSÉ LUIS SURGERY STAT 06/04/2022 11:30 AM CANOE INSPECTOR FINAL Degeneration of cervical intervertebral disc FUSION POSTERIOR CERVICAL (PCF) 06/04/2022 8:42 AM CANOE INSPECTOR FINAL Cervical myelopathy (HCC) Case Notes LATEX ALLERGY Special Needs PRONE, C-ARM CERVICAL ATTACHMENT JULIETH DONALD NEURO MONITORING POWER:4mm jose, 4mm cutter, 2mm cutter DEPUY: EDLILAH MCGINNIS [phone]; EMERSON [place] [phone]--reps notified mk 06/01 GLUCOSE - POINT OF CARE Routine 06/04/2022 6:39 AM CANOE INSPECTOR FINAL TYPE + SCREEN PANEL MARLEE 06/04/2022 6:39 AM CANOE INSPECTOR FINAL Preop examination documented in this encounter Results [...] MD on 07/18/2022 11:31 AM Lyla Blackwell APRN-CERTIFIED FORKLIFT OPERATOR DIAGNOSTIC IMAG ING ORDERABLES * GLUCOSE - POINT OF CARE (06/08/2022 7:47 AM CANOE INSPECTOR FINAL) Glucose WB/POC 95 70 - 115 mg/dL 06/08/2022 7:48 AM CANOE INSPECTOR FINAL [facility] Specimen Type Arterial 06/08/2022 7:48 AM CANOE INSPECTOR FINAL [facility] Blood BLOOD SPECIMEN / Unknown 06/08/2022 7:47 AM CANOE INSPECTOR FINAL 06/08/2022 7:48 AM CANOE INSPECTOR FINAL Ama Gonzalez MD LAB - POINT OF C ARE ORDERABLES [address] [address], [facility] [phone] * (ABNORMAL) PHOSPHORUS BLOOD (06/08/2022 2:13 AM CANOE INSPECTOR FINAL) Phosphorus 2.5(L) 2.9 - 5.1 mg/dL 06/08/2022 3:12 AM CANOE INSPECTOR FINAL [facility] Blood BLOOD SPECIMEN / Unknown Lab Venipuncture / Unknown 06/08/2022 2:13 AM CANOE INSPECTOR FINAL 06/08/2022 2:44 AM CANOE INSPECTOR FINAL Ama Gonzalez MD LAB - CHEMISTRY ORDERABLES [address] [address], [facility] [phone] * MAGNESIUM BLOOD (06/08/2022 2:13 AM CANOE INSPECTOR FINAL) Pathologist [facility] Magnesium 1.7 1.6 - 2.6 mg/dL 06/08/2022 3:12 AM [facility] Blood BLOOD SPECIMEN / Unknown Lab Venipuncture / Unknown 06/08/2022 2:13 AM CANOE INSPECTOR FINAL 06/08/2022 2:44 AM CANOE INSPECTOR FINAL Ama Gonzalez MD LAB - CHEMISTRY ORDERABLES Performing Organization Address City/[facility]/ZIP Co de Phone Number [address] [address], [facility] [phone] * (ABNORMAL) CBC W/O DIFFERENTIAL (06/08/2022 2:13 AM CANOE INSPECTOR FINAL) WBC 9.2 3.5 - 10.5 10? 3 /uL 06/08/2022 2:54 AM [facility] RBC 2.64(L) 3.80 - 5.20 10? 6 /uL 06/08/2022 2:54 AM [facility] Hemoglobin 7.9(L) 12.0 - 15.6 g/dL 06/08/2022 2:54 AM [facility] Hematocrit 23.9(L) 35.0 - 45.0 % 06/08/2022 2:54 AM [facility] MCV 90.5 80.7 - 98.3 fL 06/08/2022 2:54 AM [facility] MCH 29.9 26.7 - 34.0 pg 06/08/2022 2:54 AM [facility] MCHC 33.1 30.8 - 35.9 g/dL 06/08/2022 2:54 AM [facility] RDW-SD 44.6 36.0 - 50.0 fL 06/08/2022 2:54 AM [facility] RDW-CV 13.4 11.2 - 14.8 % 06/08/2022 2:54 AM [facility] Platelet Count 287 150 - 400 10? 3 /uL 06/08/2022 2:54 AM [facility] MPV 10.1 9.4 - 12.9 fL 06/08/2022 2:54 AM [facility] nRBC Absolute 0.00 0 10? 3 /uL 06/08/2022 2:54 AM [facility] nRBC Auto 0.0 0 /100 WBC 06/08/2022 2:54 AM [facility] Blood BLOOD SPECIMEN / Unknown Lab Venipuncture / Unknown 06/08/2022 2:13 AM CANOE INSPECTOR FINAL 06/08/2022 2:43 AM [facility] Deon Taylor MD LAB - HEMATOLOGY ORD ERABLES [facility] [address] [place] [address], [facility] [phone] * (ABNORMAL) BASIC METABOLIC PANEL (CALCIUM TOTAL) (06/08/2022 2:13 AM CANOE INSPECTOR FINAL) BUN 25 7 - 26 mg/dL 06/08/2022 3:12 AM [facility] Creatinine 1.30(H) 0.56 - 0.96 mg/dL 06/08/2022 3:12 AM [facility] Sodium 132(L) 136 - 145 mmol/L 06/08/2022 3:12 AM [facility] Potassium 5.4(H) 3.5 - 4.5 mmol/L 06/08/2022 3:12 AM [facility] Chloride 97(L) 98 - 107 mmol/L 06/08/2022 3:12 AM [facility] CO2 24 22 - 29 mmol/L 06/08/2022 3:12 AM [facility] Glucose 97 70 - 115 mg/dL 06/08/2022 3:12 AM [facility] Calcium 8.4 8.4 - 10.2 mg/dL 06/08/2022 3:12 AM [facility] Anion Gap 16 8 - 18 06/08/2022 3:12 AM [facility] BUN/Creatinine Ratio 19 7 - 23 06/08/2022 3:12 AM [facility] Osmolality Calculated 278 270 - 300 mOsm/kg 06/08/2022 3:12 AM [facility] eGFR by CKD-EPI 44(L) >=90 mL/min/1.7 3 m2 06/08/2022 3:12 AM [facility] Blood BLOOD SPECIMEN / Unknown Lab Venipuncture / Unknown 06/08/2022 2:13 AM CANOE INSPECTOR FINAL 06/08/2022 2:44 AM CANOE INSPECTOR FINAL Deon Taylor MD LAB - CHEMISTRY CHELO QUIGLEY [address] [address], [place] [phone] * GLUCOSE - POINT OF CARE (06/07/2022 11:25 PM CANOE INSPECTOR FINAL) Glucose WB/POC 94 70 - 115 mg/dL 06/08/2022 4:12 PM [facility] Specimen Type Cap Fingerstick 2022 4:12 PM [facility] Blood BLOOD SPECIMEN / Unknown 06/07/2022 11:25 PM CANOE INSPECTOR FINAL 06/08/2022 4:12 PM CANOE INSPECTOR FINAL Ama Gonzalez MD LAB - POINT OF C ARE ORDERABLES [address] [address], [place] [phone] * GLUCOSE - POINT OF CARE (06/07/2022 9:31 PM CANOE INSPECTOR FINAL) Glucose WB/POC 82 70 - 115 mg/dL 06/07/2022 9:36 PM [facility] Specimen Type Cap Fingerstick 2022 9:36 PM [facility] Blood BLOOD SPECIMEN / Unknown 06/07/2022 9:31 PM CANOE INSPECTOR FINAL 06/07/2022 9:36 PM CANOE INSPECTOR FINAL Ama Gonzalez MD LAB - POINT OF ARE ORDERABLES [address] [address], [place] [phone] * GLUCOSE - POINT OF CARE (06/07/2022 5:52 PM CANOE INSPECTOR FINAL) Glucose WB/POC 103 70 - 115 mg/dL 06/07/2022 5:52 PM CANOE INSPECTOR FINAL [facility] Specimen Type Arterial 06/07/2022 5:52 PM CANOE INSPECTOR FINAL [facility] Blood BLOOD SPECIMEN / Unknown 06/07/2022 5:52 PM CANOE INSPECTOR FINAL 06/07/2022 5:52 PM CANOE INSPECTOR FINAL Ama Gonzalez MD LAB - POINT OF ARE ORDERABLES [address] [address], [place] [phone] * (ABNORMAL) GLUCOSE - POINT OF CARE (06/07/2022 12:00 PM CANOE INSPECTOR FINAL) Glucose WB/POC 153(H) 70 - 115 mg/dL 06/07/2022 12:04 PM CANOE INSPECTOR FINAL [facility] Specimen Type Cap Fingerstick 2022 12:04 PM CANOE INSPECTOR FINAL [facility] Blood BLOOD SPECIMEN / Unknown 06/07/2022 12:00 PM CANOE INSPECTOR FINAL 06/07/2022 12:04 PM CANOE INSPECTOR FINAL Ama Gonzalez MD LAB - POINT OF ARE ORDERABLES [address] [address], [place] [phone] * GLUCOSE - POINT OF CARE (06/07/2022 8:21 AM CANOE INSPECTOR FINAL) Glucose WB/POC 91 70 - 115 mg/dL 06/07/2022 8:24 AM CANOE INSPECTOR FINAL [facility] Specimen Type Cap Fingerstick 2022 8:24 AM [facility] Blood BLOOD SPECIMEN / Unknown 06/07/2022 8:21 AM CANOE INSPECTOR FINAL 06/07/2022 8:24 AM CANOE INSPECTOR FINAL Ama Gonzalez MD LAB - POINT OF C ARE ORDERABLES [address] [address], [place] [phone] * (ABNORMAL) PHOSPHORUS BLOOD (06/07/2022 2:24 AM CANOE INSPECTOR FINAL) Phosphorus 2.7(L) 2.9 - 5.1 mg/dL 06/07/2022 3:34 AM CANOE INSPECTOR FINAL [facility] Blood BLOOD SPECIMEN / Unknown Lab Venipuncture / Unknown 06/07/2022 2:24 AM CANOE INSPECTOR FINAL 06/07/2022 3:01 AM CANOE INSPECTOR FINAL Ama Gonzalez MD LAB - CHEMISTRY ORDERABLES Performing Organization Address [facility] Co de Phone Number [address] [address], [place] [phone] * MAGNESIUM BLOOD (06/07/2022 2:24 AM CANOE INSPECTOR FINAL) Magnesium 2.1 1.6 - 2.6 mg/dL 06/07/2022 3:34 AM CANOE INSPECTOR FINAL [facility] Blood BLOOD SPECIMEN / Unknown Lab Venipuncture / Unknown 06/07/2022 2:24 AM CANOE INSPECTOR FINAL 06/07/2022 3:01 AM CANOE INSPECTOR FINAL Ama Gonzalez MD LAB - CHEMISTRY ORDERABLES Performing Organization Address City/[facility]/ZIP Co de Phone Number [address] [address], [place] [phone] * (ABNORMAL) CBC W/O DIFFERENTIAL (06/07/2022 2:24 AM CANOE INSPECTOR FINAL) WBC 11.8(H) 3.5 - 10.5 10? 3 /uL 06/07/2022 3:19 AM [facility] RBC 2.85(L) 3.80 - 5.20 10? 6 /uL 06/07/2022 3:19 AM [facility] Hemoglobin 8.5(L) 12.0 - 15.6 g/dL 06/07/2022 3:19 AM [facility] Hematocrit 25.2(L) 35.0 - 45.0 % 06/07/2022 3:19 AM [facility] MCV 88.4 80.7 - 98.3 fL 06/07/2022 3:19 AM [facility] MCH 29.8 26.7 - 34.0 pg 06/07/2022 3:19 AM [facility] MCHC 33.7 30.8 - 35.9 g/dL 06/07/2022 3:19 AM [facility] RDW-SD 43.3 36.0 - 50.0 fL 06/07/2022 3:19 AM [facility] RDW-CV 13.2 11.2 - 14.8 % 06/07/2022 3:19 AM [facility] Platelet Count 291 150 - 400 10? 3 /uL 06/07/2022 3:19 AM [facility] MPV 10.0 9.4 - 12.9 fL 06/07/2022 3:19 AM [facility] nRBC Absolute 0.00 0 10? 3 /uL 06/07/2022 3:19 AM [facility] nRBC Auto 0.0 0 /100 WBC 06/07/2022 3:19 AM [facility] Blood BLOOD SPECIMEN / Unknown Lab Venipuncture / Unknown 06/07/2022 2:24 AM CANOE INSPECTOR FINAL 06/07/2022 3:01 AM [facility] Deon Taylor MD LAB - HEMATOLOGY ORD ERABLES [facility] [address] [place] [address], [facility] [phone] * (ABNORMAL) BASIC METABOLIC PANEL (CALCIUM TOTAL) (06/07/2022 2:24 AM [facility] [employer] FINAL) BUN 25 7 - 26 mg/dL 06/07/2022 3:34 AM [facility] Creatinine 1.26(H) 0.56 - 0.96 mg/dL 06/07/2022 3:34 AM [facility] Sodium 130(L) 136 - 145 mmol/L 06/07/2022 3:34 AM [facility] Potassium 5.3(H) 3.5 - 4.5 mmol/L 06/07/2022 3:34 AM [facility] Chloride 102 98 - 107 mmol/L 06/07/2022 3:34 AM [facility] CO2 24 22 - 29 mmol/L 06/07/2022 3:34 AM [facility] Glucose 121(H) 70 - 115 mg/dL 06/07/2022 3:34 AM [facility] Calcium 8.8 8.4 - 10.2 mg/dL 06/07/2022 3:34 AM [facility] Anion Gap 9 8 - 18 06/07/2022 3:34 AM [facility] BUN/Creatinine Ratio 20 7 - 23 06/07/2022 3:34 AM [facility] Osmolality Calculated 276 270 - 300 mOsm/kg 06/07/2022 3:34 AM [facility] eGFR by CKD-EPI 45(L) >=90 mL/min/1.7 3 m2 06/07/2022 3:34 AM [facility] Blood BLOOD SPECIMEN / Unknown Lab Venipuncture / Unknown 06/07/2022 2:24 AM CANOE INSPECTOR FINAL 06/07/2022 3:01 AM [facility] Deon Taylor MD LAB - CHEMISTRY CHELO QUIGLEY [facility] Organization Address City/State/ZIP Co de Phone Number [facility] [address] [place] [address], [facility] [phone] * (ABNORMAL) GLUCOSE - POINT OF CARE (06/06/2022 8:38 PM CANOE INSPECTOR FINAL) Pathologist [facility] Glucose WB/POC 137(H) 70 - 115 mg/dL 06/06/2022 8:39 PM CANOE INSPECTOR FINAL [facility] Specimen Type Cap Fingerstick 2022 8:39 PM CANOE INSPECTOR FINAL [facility] Blood BLOOD SPECIMEN / Unknown 06/06/2022 8:38 PM CANOE INSPECTOR FINAL 06/06/2022 8:39 PM CANOE INSPECTOR FINAL Ama Gonzalez MD LAB - POINT OF C ARE ORDERABLES [address] [address], [place] [phone] * (ABNORMAL) GLUCOSE - POINT OF CARE (06/06/2022 5:02 PM CANOE INSPECTOR FINAL) Glucose WB/POC 241(H) 70 - 115 mg/dL 06/06/2022 5:03 PM CANOE INSPECTOR FINAL [facility] Specimen Type Arterial 06/06/2022 5:03 PM CANOE INSPECTOR FINAL [facility] Blood BLOOD SPECIMEN / Unknown 06/06/2022 5:02 PM CANOE INSPECTOR FINAL 06/06/2022 5:03 PM CANOE INSPECTOR FINAL Ama Gonzalez MD LAB - POINT OF ARE ORDERABLES [address] [address], [place] [phone] * (ABNORMAL) GLUCOSE - POINT OF CARE (06/06/2022 12:26 PM CANOE INSPECTOR FINAL) Glucose WB/POC 165(H) 70 - 115 mg/dL 06/06/2022 12:27 PM CANOE INSPECTOR FINAL [facility] Specimen Type Arterial 06/06/2022 12:27 PM CANOE INSPECTOR FINAL [facility] Blood BLOOD SPECIMEN / Unknown 06/06/2022 12:26 PM CANOE INSPECTOR FINAL 06/06/2022 12:27 PM CANOE INSPECTOR FINAL Ama Gonzalez MD LAB - POINT OF C ARE ORDERABLES [address] [place] [address], [facility] [phone] * TRANSFUSE RED BLOOD CELL LEUKOREDUCED UNIT(S) (06/06/2022 12:20 PM CANOE INSPECTOR FINAL) Ama Gonzalez MD NURSING - BLOOD PROD TRANSFUSION * TRANSFUSE RED BLOOD CELL LEUKOREDUCED UNIT(S), 1 Units (06/06/2022 12:20 PM CANOE INSPECTOR FINAL) Ama Gonzalez MD NURSING - BLOOD PROD TRANSFUSION * PREPARE (CROSSMATCH) RBC UNIT(S), 1 Units (06/06/2022 9:36 AM CANOE INSPECTOR FINAL) Unit Description AS1 LR PRBC [facility] Unit ABO A [facility] Unit Rh POS [facility] Product Number R02 [facility] LO[facility] Unit Donor # [id number] [facility] Unit Status transfused [facility] B[facility] OD [facility] Product Code [id number] [facility] Blood Type Barcode 6200 [facility] Expiration Date [id number] S BLOOD BANK LAB Blood Bank BLOOD SPECIMEN / Unknown 06/04/2022 6:44 AM CANOE INSPECTOR FINAL Ama Gonzalez MD LAB - BLOOD BANK ORDERABLES [facility] [place] [address], [facility] [phone] * (ABNORMAL) GLUCOSE - POINT OF CARE (06/06/2022 8:00 AM CANOE INSPECTOR FINAL) Glucose WB/POC 125(H) 70 - 115 mg/dL 06/06/2022 8:01 AM CANOE INSPECTOR FINAL [facility] Specimen Type Arterial 06/06/2022 8:01 AM CANOE INSPECTOR FINAL [facility] Blood BLOOD SPECIMEN / Unknown 06/06/2022 8:00 AM CANOE INSPECTOR FINAL 06/06/2022 8:01 AM CANOE INSPECTOR FINAL Ama Gonzalez MD LAB - POINT OF C ARE ORDERABLES [address] [address], [facility] [phone] * PHOSPHORUS BLOOD (06/06/2022 3:07 AM CANOE INSPECTOR FINAL) Pathologist [facility] Phosphorus 3.2 2.9 - 5.1 mg/dL 06/06/2022 4:03 AM [facility] Blood BLOOD SPECIMEN / Unknown Lab Venipuncture / Unknown 06/06/2022 3:07 AM CANOE INSPECTOR FINAL 06/06/2022 3:29 AM CANOE INSPECTOR FINAL Ama Gonzalez MD LAB - CHEMISTRY ORDERABLES [address] [address], [facility] [phone] * MAGNESIUM BLOOD (06/06/2022 3:07 AM CANOE INSPECTOR FINAL) Pathologist [facility] Magnesium 1.6 1.6 - 2.6 mg/dL 06/06/2022 4:03 AM [facility] Blood BLOOD SPECIMEN / Unknown Lab Venipuncture / Unknown 06/06/2022 3:07 AM CANOE INSPECTOR FINAL 06/06/2022 3:29 AM CANOE INSPECTOR FINAL Ama Gonzalez MD LAB - CHEMISTRY ORDERABLES Performing Organization Address City/[facility]/ZIP Co de Phone Number [address] [address], [facility] [phone] * (ABNORMAL) CBC W/O DIFFERENTIAL (06/06/2022 3:07 AM CANOE INSPECTOR FINAL) WBC 8.5 3.5 - 10.5 10? 3 /uL 06/06/2022 3:32 AM [facility] RBC 2.26(L) 3.80 - 5.20 10? 6 /uL 06/06/2022 3:32 AM [facility] Hemoglobin 6.7(L) 12.0 - 15.6 g/dL 06/06/2022 3:32 AM [facility] Hematocrit 20.8(L) 35.0 - 45.0 % 06/06/2022 3:32 AM [facility] MCV 92.0 80.7 - 98.3 fL 06/06/2022 3:32 AM [facility] MCH 29.6 26.7 - 34.0 pg 06/06/2022 3:32 AM [facility] MCHC 32.2 30.8 - 35.9 g/dL 06/06/2022 3:32 AM [facility] RDW-SD 43.7 36.0 - 50.0 fL 06/06/2022 3:32 AM [facility] RDW-CV 13.2 11.2 - 14.8 % 06/06/2022 3:32 AM [facility] Platelet Count 254 150 - 400 10? 3 /uL 06/06/2022 3:32 AM [facility] MPV 9.7 9.4 - 12.9 fL 06/06/2022 3:32 AM [facility] nRBC Absolute 0.00 0 10? 3 /uL 06/06/2022 3:32 AM [facility] nRBC Auto 0.0 0 /100 WBC 06/06/2022 3:32 AM [facility] Blood BLOOD SPECIMEN / Unknown Lab Venipuncture / Unknown 06/06/2022 3:07 AM CANOE INSPECTOR FINAL 06/06/2022 3:29 AM [facility] Deon Taylor MD LAB - HEMATOLOGY ORD ERABLES [facility] [address] [place] [address], [facility] [phone] * (ABNORMAL) BASIC METABOLIC PANEL (CALCIUM TOTAL) (06/06/2022 3:07 AM [facility]) BUN 25 7 - 26 mg/dL 06/06/2022 4:03 AM [facility] Creatinine 1.34(H) 0.56 - 0.96 mg/dL 06/06/2022 4:03 AM [facility] Sodium 129(L) 136 - 145 mmol/L 06/06/2022 4:03 AM [facility] Potassium 4.6(H) 3.5 - 4.5 mmol/L 06/06/2022 4:03 AM [facility] Chloride 100 98 - 107 mmol/L 06/06/2022 4:03 AM [facility] CO2 22 22 - 29 mmol/L 06/06/2022 4:03 AM [facility] Glucose 112 70 - 115 mg/dL 06/06/2022 4:03 AM [facility] Calcium 8.9 8.4 - 10.2 mg/dL 06/06/2022 4:03 AM [facility] Anion Gap 12 8 - 18 06/06/2022 4:03 AM [facility] BUN/Creatinine Ratio 19 7 - 23 06/06/2022 4:03 AM [facility] Osmolality Calculated 273 270 - 300 mOsm/kg 06/06/2022 4:03 AM [facility] eGFR by CKD-EPI 42(L) >=90 mL/min/1.7 3 m2 06/06/2022 4:03 AM [facility] Blood BLOOD SPECIMEN / Unknown Lab Venipuncture / Unknown 06/06/2022 3:07 AM CANOE INSPECTOR FINAL 06/06/2022 3:29 AM CANOE INSPECTOR FINAL Deon Taylor MD LAB - CHEMISTRY ORDE SORAIDA [address] [address], [place] [phone] * FOLATE (06/06/2022 3:07 AM CANOE INSPECTOR FINAL) Folate 9.4 7.0 - 31.4 ng/mL 06/06/2022 4:35 AM [facility] Blood BLOOD SPECIMEN / Unknown Lab Venipuncture / Unknown 06/06/2022 3:07 AM CANOE INSPECTOR FINAL 06/06/2022 3:29 AM CANOE INSPECTOR FINAL Ama Gonzalez MD LAB - CHEMISTRY ORDERABLES Performing Organization Address City/[facility]/ZIP Co de Phone Number [address] [address], [place] [phone] * VITAMIN B12 (06/06/2022 3:07 AM CANOE INSPECTOR FINAL) Vitamin B12 382 213 - 816 pg/mL 06/06/2022 4:35 AM [facility] Blood BLOOD SPECIMEN / Unknown Lab Venipuncture / Unknown 06/06/2022 3:07 AM CANOE INSPECTOR FINAL 06/06/2022 3:29 AM CANOE INSPECTOR FINAL Ama Gonzalez MD LAB - CHEMISTRY ORDERABLES [address] [address], [facility] [phone] * FERRITIN (06/06/2022 3:07 AM CANOE INSPECTOR FINAL) Ferritin 94 13 - 204 ng/mL 06/06/2022 4:10 AM [facility] Blood BLOOD SPECIMEN / Unknown Lab Venipuncture / Unknown 06/06/2022 3:07 AM CANOE INSPECTOR FINAL 06/06/2022 3:25 AM CANOE INSPECTOR FINAL Ama Gonzalez MD LAB - CHEMISTRY ORDERABLES Performing Organization Address City/[facility]/ZIP Co de Phone Number [address] [address], [place] [phone] * (ABNORMAL) IRON + TRANSFERRIN PANEL (06/06/2022 3:07 AM CANOE INSPECTOR FINAL) Iron 20(L) 40 - 150 ug/dL 06/06/2022 3:53 AM [facility] Transferrin 162(L) 174 - 382 mg/dL 06/06/2022 3:53 AM [facility] Transferrin Saturation % 10(L) 16 - 50 % 06/06/2022 3:53 AM [facility] TIBC Calculated 203(L) 240 - 450 ug/dL 06/06/2022 3:53 AM [facility] Blood BLOOD SPECIMEN / Unknown Lab Venipuncture / Unknown 06/06/2022 3:07 AM CANOE INSPECTOR FINAL 06/06/2022 3:25 AM CANOE INSPECTOR FINAL Ama Gonzalez MD LAB - CHEMISTRY ORDERABLES Performing Organization Address City/[facility]/ZIP Co de Phone Number [address] [address], [facility] [phone] * HEMOGLOBIN A1C (06/06/2022 3:07 AM CANOE INSPECTOR FINAL) Hemoglobin A1c 5.3 <=5.6 % 06/06/2022 3:38 PM [facility] Estimated Average Glucose 105 mg/dL 06/06/2022 3:38 PM [facility] Comment: HbA1c Interpretation: Normal : < 5.7% Pre-diabetes: 5.7-6.4% Diabetes: Equal to or greater than 6.5% Test results diagnostic of diabetes should be repeated for confirmation. Treatment target values recommended by ADA and other clinical organizations should be used to evaluate metabolic control in patients. Reference: [place] [employer], Standards of Care in Diabetes -2020 In patients 70 years and older consider HbA1c target range of 7.0-7.5% (Reference: Oswaldo Liz et al. JAMDA. 2012) The Sebia assay for the measurement of HbA1c is a National Glycohemoglobin Standardization Program (NGSP) certified method. Blood BLOOD SPECIMEN / Unknown Lab Venipuncture / Unknown 06/06/2022 3:07 AM CANOE INSPECTOR FINAL 06/06/2022 3:28 AM CANOE INSPECTOR FINAL Ama Gonzalez MD LAB - CHEMISTRY ORDERABLES [address] [address], [facility] [phone] * PTH INTACT W/O CALCIUM (06/06/2022 3:07 AM CANOE INSPECTOR FINAL) PTH Intact 72.1 8.0 - 77.0 pg/mL 06/06/2022 4:04 AM [facility] Blood BLOOD SPECIMEN / Unknown Lab Venipuncture / Unknown 06/06/2022 3:07 AM CANOE INSPECTOR FINAL 06/06/2022 3:32 AM CANOE INSPECTOR FINAL Deon Taylor MD LAB - CHEMISTRY CHELO QUIGLEY Performing Organization Address [facility]/ZIP Co de Phone Number [facility] [address] [place] [address], [place] [phone] * VITAMIN D 25-HYDROXY (06/06/2022 3:07 AM CANOE INSPECTOR FINAL) Pathologist [facility] Vitamin D, 25 Hydroxy 53.0 30.0 - 80.0 ng/mL 06/06/2022 4:35 AM CANOE INSPECTOR FINAL [facility] Comment: The recommendations for 25-Hydroxy [...] Lab Venipuncture / Unknown 06/06/2022 3:07 AM CANOE INSPECTOR FINAL 06/06/2022 3:29 AM CANOE INSPECTOR FINAL Deon Taylor MD LAB - CHEMISTRY CHELO QUIGLEY Performing Organization Address [facility]/ZIP Co de Phone Number [facility] [address] [place] [address], [place] [phone] * (ABNORMAL) GLUCOSE - POINT OF CARE (06/05/2022 8:51 PM CANOE INSPECTOR FINAL) Pathologist [facility] Glucose WB/POC 152(H) 70 - 115 mg/dL 06/05/2022 8:52 PM CANOE INSPECTOR FINAL [facility] Specimen Type Cap Fingerstick 2022 8:52 PM CANOE INSPECTOR FINAL [facility] Blood BLOOD SPECIMEN / Unknown 06/05/2022 8:51 PM CANOE INSPECTOR FINAL 06/05/2022 8:52 PM CANOE INSPECTOR FINAL Ama Gonzalez MD LAB - POINT OF ARE ORDERABLES [address] [address], [place] [phone] * (ABNORMAL) GLUCOSE - POINT OF CARE (06/05/2022 5:59 PM CANOE INSPECTOR FINAL) Glucose WB/POC 185(H) 70 - 115 mg/dL 06/05/2022 6:02 PM [facility] Specimen Type Cap Fingerstick 2022 6:02 PM CANOE INSPECTOR FINAL [facility] Blood BLOOD SPECIMEN / Unknown 06/05/2022 5:59 PM CANOE INSPECTOR FINAL 06/05/2022 6:02 PM CANOE INSPECTOR FINAL Ama Gonzalez MD LAB - POINT OF ARE ORDERABLES Performing Organization Address City/[facility]/ZIP Co de Phone Number [address] [address], [place] [phone] * (ABNORMAL) GLUCOSE - POINT OF CARE (06/05/2022 4:27 PM CANOE INSPECTOR FINAL) Glucose WB/POC 208(H) 70 - 115 mg/dL 06/05/2022 4:28 PM CANOE INSPECTOR FINAL [facility] Specimen Type Arterial 06/05/2022 4:28 PM CANOE INSPECTOR FINAL [facility] Blood BLOOD SPECIMEN / Unknown 06/05/2022 4:27 PM CANOE INSPECTOR FINAL 06/05/2022 4:28 PM CANOE INSPECTOR FINAL Ama Gonzalez MD LAB - POINT OF C ARE ORDERABLES [address] [address], [place] [phone] * (ABNORMAL) GLUCOSE - POINT OF CARE (06/05/2022 12:37 PM CANOE INSPECTOR FINAL) Pathologist [facility] Glucose WB/POC 163(H) 70 - 115 mg/dL 06/05/2022 12:37 PM [facility] Specimen Type Arterial 06/05/2022 12:37 PM [facility] Blood BLOOD SPECIMEN / Unknown 06/05/2022 12:37 PM CANOE INSPECTOR FINAL 06/05/2022 12:37 PM CANOE INSPECTOR FINAL Ama Gonzalez MD LAB - POINT OF ARE ORDERABLES [facility] [address] [place] [address], [facility] [phone] * (ABNORMAL) CBC W/O DIFFERENTIAL (06/05/2022 12:32 PM CANOE INSPECTOR FINAL) [facility] WBC 10.0 3.5 - 10.5 10? 3 /uL 06/05/2022 12:45 PM [facility] RBC 2.31(L) 3.80 - 5.20 10? 6 /uL 06/05/2022 12:45 PM [facility] Hemoglobin 7.0(L) 12.0 - 15.6 g/dL 06/05/2022 12:45 PM [facility] Hematocrit 20.9(L) 35.0 - 45.0 % 06/05/2022 12:45 PM [facility] MCV 90.5 80.7 - 98.3 fL 06/05/2022 12:45 PM [facility] MCH 30.3 26.7 - 34.0 pg 06/05/2022 12:45 PM [facility] MCHC 33.5 30.8 - 35.9 g/dL 06/05/2022 12:45 PM [facility] RDW-SD 43.0 36.0 - 50.0 fL 06/05/2022 12:45 PM [facility] RDW-CV 13.2 11.2 - 14.8 % 06/05/2022 12:45 PM [facility] Platelet Count 259 150 - 400 10? 3 /uL 06/05/2022 12:45 PM [facility] MPV 9.5 9.4 - 12.9 fL 06/05/2022 12:45 PM [facility] nRBC Absolute 0.00 0 10? 3 /uL 06/05/2022 12:45 PM [facility] nRBC Auto 0.0 0 /100 WBC 06/05/2022 12:45 PM [facility] Blood BLOOD SPECIMEN / Unknown Lab Venipuncture / Unknown 06/05/2022 12:32 PM CANOE INSPECTOR FINAL 06/05/2022 12:37 PM CANOE INSPECTOR FINAL Ama Gonzalez MD LAB - HEMATOLOGY ORDERABLES [facility] [address] [place] [address], [facility] [phone] * XR CERVICAL SPINE 2 OR 3VW (06/05/2022 9:35 AM CANOE INSPECTOR FINAL) Anatomical Region Laterality Modality Spine Radiographic Vivian ging 06/05/2022 11:4 5 AM CANOE INSPECTOR FINAL Impressions 06/05/2022 3:11 PM CANOE INSPECTOR FINAL IMPRESSION: Interval posterior spinal fusion of C4-T2. Poor delineation of the spine in this region in lateral projection. Report drafted by Jon Arias MD (residential sales) I, Kamila Barber MD have personally reviewed and interpreted this examination/study. > Interpreting Provider: Kamila Barber MD on 06/05/2022 3:11 PM Narrative 06/05/2022 3:11 PM CANOE INSPECTOR FINAL PROCEDURE: ??XR CERVICAL SPINE 2 OR 3VW, DATE/TIME OF EXAM: ??06/05/2022 9:37 AM, LOCATION ??[facility] INDICATION: M50.30: Degeneration of cervical intervertebral [...] 3VW, DATE/TIME OF EXAM: 39:37 AM, LOCATION [facility] INDICATION: M50.30: Degeneration of cervical intervertebral [...] projection. Report drafted by Jon Arias MD (residential sales) I, Kamila Barber MD have personally reviewed and interpreted this examination/study. > Interpreting Provider: Kamila Barber MD on 06/05/2022 3:11 PM Lyla Blackwell PASTRY WRAPPER-CERTIFIED FORKLIFT OPERATOR DIAGNOSTIC IMAG ING ORDERABLES * GLUCOSE - POINT OF CARE (06/05/2022 8:39 AM CANOE INSPECTOR FINAL) Glucose WB/POC 109 70 - 115 mg/dL 06/05/2022 8:40 AM CANOE INSPECTOR FINAL [facility] Specimen Type Arterial 06/05/2022 8:40 AM CANOE INSPECTOR FINAL [facility] Blood BLOOD SPECIMEN / Unknown 06/05/2022 8:39 AM CANOE INSPECTOR FINAL 06/05/2022 8:40 AM CANOE INSPECTOR FINAL Deon Taylor MD LAB - POINT OF CARE ORDERABLES [facility] [address] [place] [address], [facility] [phone] * (ABNORMAL) CBC W/O DIFFERENTIAL (06/05/2022 4:58 AM CANOE INSPECTOR FINAL) WBC 10.4 3.5 - 10.5 10? 3 /uL 06/05/2022 5:27 AM [facility] RBC 2.41(L) 3.80 - 5.20 10? 6 /uL 06/05/2022 5:27 AM [facility] Hemoglobin 7.1(L) 12.0 - 15.6 g/dL 06/05/2022 5:27 AM [facility] Hematocrit 22.1(L) 35.0 - 45.0 % 06/05/2022 5:27 AM [facility] MCV 91.7 80.7 - 98.3 fL 06/05/2022 5:27 AM [facility] MCH 29.5 26.7 - 34.0 pg 06/05/2022 5:27 AM [facility] MCHC 32.1 30.8 - 35.9 g/dL 06/05/2022 5:27 AM [facility] RDW-SD 43.3 36.0 - 50.0 fL 06/05/2022 5:27 AM [facility] RDW-CV 13.1 11.2 - 14.8 % 06/05/2022 5:27 AM [facility] Platelet Count 273 150 - 400 10? 3 /uL 06/05/2022 5:27 AM [facility] MPV 9.8 9.4 - 12.9 fL 06/05/2022 5:27 AM [facility] nRBC Absolute 0.00 0 10? 3 /uL 06/05/2022 5:27 AM [facility] nRBC Auto 0.0 0 /100 WBC 06/05/2022 5:27 AM [facility] Blood BLOOD SPECIMEN / Unknown Lab Venipuncture / Unknown 06/05/2022 4:58 AM CANOE INSPECTOR FINAL 06/05/2022 5:16 AM CANOE INSPECTOR FINAL Deon Taylor MD LAB - HEMATOLOGY ORD ERABLES [facility] [address] [place] [address], [facility] [phone] * (ABNORMAL) BASIC METABOLIC PANEL (CALCIUM TOTAL) (06/05/2022 4:58 AM CANOE INSPECTOR FINAL) BUN 27(H) 7 - 26 mg/dL 06/05/2022 5:43 AM [facility] Creatinine 1.40(H) 0.56 - 0.96 mg/dL 06/05/2022 5:43 AM [facility] Sodium 132(L) 136 - 145 mmol/L 06/05/2022 5:43 AM [facility] Potassium 5.2(H) 3.5 - 4.5 mmol/L 06/05/2022 5:43 AM [facility] Chloride 103 98 - 107 mmol/L 06/05/2022 5:43 AM [facility] CO2 19(L) 22 - 29 mmol/L 06/05/2022 5:43 AM [facility] Glucose 107 70 - 115 mg/dL 06/05/2022 5:43 AM [facility] Calcium 8.5 8.4 - 10.2 mg/dL 06/05/2022 5:43 AM [facility] Anion Gap 15 8 - 18 06/05/2022 5:43 AM [facility] BUN/Creatinine Ratio 19 7 - 23 06/05/2022 5:43 AM [facility] Osmolality Calculated 280 270 - 300 mOsm/kg 06/05/2022 5:43 AM [facility] eGFR by CKD-EPI 40(L) >=90 mL/min/1.7 3 m2 06/05/2022 5:43 AM [facility] Blood BLOOD SPECIMEN / Unknown Lab Venipuncture / Unknown 06/05/2022 4:58 AM CANOE INSPECTOR FINAL 06/05/2022 5:17 AM CANOE INSPECTOR FINAL Deon Taylor MD LAB - CHEMISTRY CHELO QUIGLEY Performing Organization Address City/[facility]/ZIP Co de Phone Number [address] [address], [place] [phone] * (ABNORMAL) GLUCOSE - POINT OF CARE (06/04/2022 8:20 PM CANOE INSPECTOR FINAL) Glucose WB/POC 120(H) 70 - 115 mg/dL 06/04/2022 8:21 PM CANOE INSPECTOR FINAL [facility] Specimen Type Cap Fingerstick 2022 8:21 PM CANOE INSPECTOR FINAL [facility] Blood BLOOD SPECIMEN / Unknown 06/04/2022 8:20 PM CANOE INSPECTOR FINAL 06/04/2022 8:21 PM CANOE INSPECTOR FINAL Deon Taylor MD LAB - POINT OF CARE ORDERABLES Performing Organization Address [facility]/ZIP Co de Phone Number [address] [address], [place] [phone] * GLUCOSE - POINT OF CARE (06/04/2022 11:51 AM CANOE INSPECTOR FINAL) Glucose WB/POC 111 70 - 115 mg/dL 06/04/2022 11:56 AM CANOE INSPECTOR FINAL [facility] Specimen Type Cap Fingerstick 2022 11:56 AM CANOE INSPECTOR FINAL [facility] Blood BLOOD SPECIMEN / Unknown 06/04/2022 11:51 AM CANOE INSPECTOR FINAL 06/04/2022 11:55 AM CANOE INSPECTOR FINAL Deon Taylor MD LAB - POINT OF CARE ORDERABLES Performing Organization Address City/[facility]/ZIP Co de Phone Number [address] [address], [place] [phone] * [place] JOSÉ LUIS SURGERY (06/04/2022 11:30 AM CANOE INSPECTOR FINAL) Narrative [facility] - 06/04/2022 12:52 PM CANOE INSPECTOR FINAL Fluoroscopy was used for this exam in the OR. Please see the Operative report. Deon Taylor MD FLUOROSCOPY ORDERABL ES Performing Organization Address City/[facility]/ZIP Co de Phone Number [facility] * (ABNORMAL) GLUCOSE - POINT OF CARE (06/04/2022 6:39 AM CANOE INSPECTOR FINAL) Glucose WB/POC 130(H) 70 - 115 mg/dL 06/05/2022 12:40 PM CANOE INSPECTOR FINAL [facility] Specimen Type Venous 06/05/2022 12:40 PM CANOE INSPECTOR FINAL [facility] Blood BLOOD SPECIMEN / Unknown 06/04/2022 6:39 AM CANOE INSPECTOR FINAL 06/05/2022 12:40 PM CANOE INSPECTOR FINAL Deon Taylor MD LAB - POINT OF CARE ORDERABLES Performing Organization Address [facility]/ZIP Co de Phone Number [facility] [address] [place] [address], [place] [phone] * TYPE + SCREEN PANEL (06/04/2022 6:39 AM CANOE INSPECTOR FINAL) Antibody Screen NEG 7:24 AM CANOE INSPECTOR FINAL [facility] LAB ABO Rh A POS 06/04/2022 7:24 AM CANOE INSPECTOR FINAL [facility] Blood Bank BLOOD SPECIMEN / Unknown Venipuncture / Unknown 06/04/2022 6:39 AM CANOE INSPECTOR FINAL 06/04/2022 6:44 AM CANOE INSPECTOR FINAL Provider Unknown LAB - BLOOD BANK ORD ERABLES Performing Organization Address [facility] Co de Phone Number [facility] [address] [place] [address], [place] [phone] documented in this encounter Visit Diagnoses Diagnosis [...] 8 hours. $ Given 06/08/2022 8:08 PM CANOE INSPECTOR FINAL 3 mL $ Given 06/08/2022 2:36 PM CANOE INSPECTOR FINAL 3 mL $ Given 06/08/2022 5:08 AM CANOE INSPECTOR FINAL 3 mL acetaminophen (Tylenol) tablet 1,000 mg [...] the MAR. $ Given 06/08/2022 8:07 PM CANOE INSPECTOR FINAL 1,000 mg $ Given 06/08/2022 2:36 PM CANOE INSPECTOR FINAL 1,000 mg $ Given 06/08/2022 9:07 AM CANOE INSPECTOR FINAL 1,000 mg bacitracin topical ointment PRN, Starting on Sat06/04/22 at 0800, Until Sat06/04/22 at 1142, Intra-op $ Given 06/04/2022 8:00 AM CANOE INSPECTOR FINAL 1 g buPROPion SR 12hr (Wellbutrin-SR) tablet 100 mg 100 mg, Oral, 2 TIMES DAILY, First dose on Sat06/04/22 at 1330, Until Discontinued, Do not crush, chew, or cut in half. $ Given 06/08/2022 8:07 PM CANOE INSPECTOR FINAL 100 mg $ Given 06/08/2022 9:07 AM CANOE INSPECTOR FINAL 100 mg $ Given 06/07/2022 8:20 PM CANOE INSPECTOR FINAL 100 mg carvedilol (Coreg) tablet 6.25 mg 6.25 mg, Oral, 2 TIMES DAILY, First dose on Sat06/04/22 at 2100, Until Discontinued, Take with food $ Given 06/08/2022 8:08 PM CANOE INSPECTOR FINAL 6.25 mg $ Given 06/08/2022 9:07 AM CANOE INSPECTOR FINAL 6.25 mg $ Given 06/07/2022 8:20 PM CANOE INSPECTOR FINAL 6.25 mg dextrose 10 % IV bolus [...] Until Discontinued $ Given 06/08/2022 9:07 AM CANOE INSPECTOR FINAL 20 mg $ Given 06/07/2022 8:42 AM CANOE INSPECTOR FINAL 20 mg $ Given 06/06/2022 8:20 AM CANOE INSPECTOR FINAL 20 mg gabapentin (Neurontin) capsule 300 mg 300 mg, Oral, 3 TIMES DAILY, First dose on Sat06/05/22 at 0800, Until Discontinued $ Given 06/08/2022 8:08 PM CANOE INSPECTOR FINAL 300 m g $ Given 06/08/2022 2:36 PM CANOE INSPECTOR FINAL 300 mg $ Given 06/08/2022 9:07 AM CANOE INSPECTOR FINAL 300 mg iron sucrose (Venofer) injection 200 mg 200 mg, Intravenous, DAILY, 5 doses, First dose on Sat06/06/22 at 0930, Last dose on Sat06/10/22 at 0900, May administer up to 200 mg of undiluted solution IVP slowly over 5 minutes $ Given 06/08/2022 9:06 AM CANOE INSPECTOR FINAL 200 mg $ Given 06/07/2022 8:42 AM CANOE INSPECTOR FINAL 200 mg $ Given 06/06/2022 10:37 AM CANOE INSPECTOR FINAL 200 mg latanoprost (Xalatan) 0.005 % ophthalmic solution 1 drop 1 drop, Each Eye, AT BEDTIME, First dose on Sat06/04/22 at 2100, Until Discontinued, Allow at least 5 minutes between administration of multiple ophthalmic products Once opened, store at room temperature $ Given 06/08/2022 8:08 PM CANOE INSPECTOR FINAL 1 drop $ Given 06/07/2022 8:22 PM CANOE INSPECTOR FINAL 1 drop $ Given 06/06/2022 8:27 PM CANOE INSPECTOR FINAL 1 drop lisinopril (Prinivil; Zestril) tablet 20 mg 20 mg, Oral, DAILY, First dose on Sat06/05/22 at 0900, Until Discontinued $ Given 06/08/2022 9:07 AM CANOE INSPECTOR FINAL 20 mg $ Given 06/07/2022 8:41 AM CANOE INSPECTOR FINAL 20 mg $ Given 06/06/2022 8:20 AM CANOE INSPECTOR FINAL 20 mg meclizine (Antivert) tablet 25 mg 25 mg, Oral, 3 TIMES DAILY PRN, Dizziness, Starting on Sat06/07/22 at 0945, Until Sat06/08/22 at 2259 $ Given 06/08/2022 10:50 AM CANOE INSPECTOR FINAL 25 mg $ Given 06/07/2022 1:57 PM CANOE INSPECTOR FINAL 25 mg ondansetron (Zofran) injection 4 mg 4 mg, Intravenous, EVERY 6 HOURS PRN, Nausea/Vomiting, Starting on Sat06/05/22 at 0759, Until Sat06/08/22 at 2259, Administer over 2 to 5 minutes. $ Given 06/06/2022 8:26 PM CANOE INSPECTOR FINAL 4 mg oxyCODONE (immediate release) (Roxicodone) tablet [...] MAR., Post-op $ Given 06/08/2022 10:50 AM CANOE INSPECTOR FINAL 5 mg $ Given 06/06/2022 8:27 PM CANOE INSPECTOR FINAL 5 mg $ Given 06/06/2022 4:57 AM CANOE INSPECTOR FINAL 5 mg pantoprazole EC (Protonix) tablet 40 mg 40 mg, Oral, DAILY, First dose on Sat06/04/22 at 1330, Until Discontinued, Do not crush, chew, or cut in half. $ Given 06/08/2022 9:07 AM CANOE INSPECTOR FINAL 40 mg $ Given 06/07/2022 8:41 AM CANOE INSPECTOR FINAL 40 mg $ Given 06/06/2022 8:20 AM CANOE INSPECTOR FINAL 40 mg polyethylene glycol 3350 (Miralax) packet 17 g 17 g, Oral, DAILY PRN, Constipation, Starting on Sat06/07/22 at 0906, Until Sat06/08/22 at 2259, Mix in 8 ounces of water, juice, soda, coffee or tea prior to administration, Post-op pravastatin (Pravachol) tablet 40 mg 40 mg, Oral, AT BEDTIME, First dose on Sat06/04/22 at 2100, Until Discontinued $ Given 06/08/2022 8:07 PM CANOE INSPECTOR FINAL 40 mg $ Given 06/07/2022 8:20 PM CANOE INSPECTOR FINAL 40 mg $ Given 06/06/2022 8:27 PM CANOE INSPECTOR FINAL 40 mg QUEtiapine (SEROquel) tablet 100 mg 100 mg, Oral, EVERY EVENING, First dose (after last modification) on Sat06/08/22 at 1700, Until Discontinued $ Given 06/08/2022 6:27 PM CANOE INSPECTOR FINAL 100 mg saline nasal spray ([place]; Baby [place]) 0.65 % nasal spray 2 spray 2 spray, Each Nostril, EVERY 1 HOUR PRN, Dry Nose, Starting on Sat06/06/22 at 0946, Until Sat06/08/22 at 2259 thrombin (recombinant) (Recothrom) solution PRN, Starting on Sat06/04/22 at 0908, Until Sat06/04/22 at 1142, Intra-op $ Given 06/04/2022 9:08 AM CANOE INSPECTOR FINAL 20,000 Units Back vancomycin (Vancocin) injection PRN, Starting on Sat06/04/22 at 1045, Until Sat06/04/22 at 1142, Indication for anti-infective therapy: Surgical prophylaxis, Intra-op $ Given 06/04/2022 10:45 AM CANOE INSPECTOR FINAL 1,000 mg Back vitamin D3 (Cholecalciferol) 10 MCG (400 UNIT) tablet 800 Units 800 Units, Oral, DAILY, First dose (after last modification) on 06/09/22 at 0900, Until Discontinued, 400 units = 10 mcg documented in this encounter Active and Recently Administered Medications Times are shown in CANOE INSPECTOR FINAL. Scheduled Medication Order 06/06/2022 06/07/2022 06/08/2022 0.9% [...] prior to administration, Post-op saline nasal spray ([place]; Baby Macon) 0.65 % nasal spray 2 spray 2 [...] Post-op documented in this encounter Care Teams Fitness Floor Attendant Relationship Specialty Start Date End Date Karrie Phillips MD [address] [place] [address] PCP - General 03/13/22 documented as of this encounter
--- OUTSIDE RECORDS SUMMARY | 2024-04-11 13:17 | XMS_ITS | Encounter Summary ---
Author Organization [facility] Address [address] [place] [address] Care Team Providers Care Co Founder And President Name Role Phone Karrie Phillips MD Primary Care Provider [phone] Reason for Visit * Reason Comments Pain Neck Encounter Details Date Type Department Care Team (Late st Contact Info) Description 03/13/2022 1:00 PM DONOR RELATIONS ASSOCIATE Office Visit [facility] [address] [place] [address], [place] [address] Deon Taylor MD [address] [place] [phone] Cervical myelopathy (HCC) (Primary Dx) Social History [...] (142 lb 9.6 oz) 03/13/2022 12:52 PM DONOR RELATIONS ASSOCIATE Height 154.9 cm (5' 1 ) 03/13/2022 12:52 PM DONOR RELATIONS ASSOCIATE Body Mass Index 26.94 03/13/2022 12:52 PM DONOR RELATIONS ASSOCIATE documented in this encounter Functional Status Functional [...] Anabell Avendaño, SANTI - 03/13/2022 1:42 PM DONOR RELATIONS ASSOCIATE Kandace Cole 03/13/2022 Follow up: Our office will contact you with a surgery date and provide you with more specific instructions for surgery once the date is confirmed. Radha is Dr. Taylor's field administrative assistant and is your contact worker for scheduling your surgery. If you have not heard from her within a week, you may contact her at [phone]. We will help you schedule an appointment [...] contact Anabell Avendaño RN at or through [employer] if you have any furtherquestions or concerns. For medical emergencies please call [facility]. [facility] Orthopaedic office contact information: [facility] (at [facility]) [address] [place] [address], [place] [address] [facility] [address] [place] [address], [place] [address] March 13, 2022 To Whom It May Concern: Please use this letter to document that Kandace Candace Cole, : 1950, was in to see Deon Taylor MD on 03/13/2022. Thank you. Sincerely, Deon Taylor MD [facility] CSM 1L R RELATIONS ASSOCIATE documented in this encounter Progress Notes [...] for further surgery, blood clots, PE, stroke, RI, paralysis, . After we reviewed of the [...] PHQ-2 Score 3 (Further screening recommended) Deon Tayolr MD R RELATIONS ASSOCIATE * Bria Iniguez MD - 03/13/2022 1:04 PM CST [facility] Orthopedic Spine Surgery Clinic Note Kandace Cole, 72 year old, female : 1950 CSN: [id number] Primary Care Physician: Karrie Phillips MD, MD [...] 200 MG tablet ??? saline nasal spray ([place]; Baby Strang) 0.65 % nasal spray No current facility-administered [...] needfor further surgery, blood clots, PE, stroke, RI, paralysis, . After we reviewed of the risks a nd benefits the patient wished to proceed with the surgery as planned. - Will plan to proceed with C4-7 PISF with C5-6 laminectomies - Follow up for surgery Bria Iniguez MD 03/13/2022 R RELATIONS ASSOCIATE documented in this encounter Plan of Treatment Upcoming Encounters Date Type Department Care Team (Late st Contact Info) Description 06/02/2024 1:45 PM DONOR RELATIONS ASSOCIATE Office Visit [facility] - Orthopedics [address] [place] [address], [place] [address] Deon Taylor MD [address] [place] [address] documented as of this encounter Visit Diagnoses Diagnosis Cervical myelopathy (HCC)- Primary Cervical spondylosis with myelopathy documented in this encounter Care Teams Co Founder And President Relationship Specialty Start Date End Date Karrie Phillips MD [address] [place] [id number] PCP - General 03/13/22 documented as of this encounter
--- OUTSIDE RECORDS SUMMARY | 2024-04-11 13:17 | XMS_ITS | Encounter Summary ---
Author Organization [facility] Address [address] [place] [address] Care Team Providers Care Business Objects Name Role Phone Karrie Phillips MD Primary Care Provider [phone] Encounter Details Date Type Department Care Team (Late st Contact Info) Description 03/21/2022 Orders Only [facility] [address] [facility], [place] [address] Anabell Avendaño, SANTI Cervical myelopathy [...] st Contact Info) Description 06/02/2024 1:45 PM WHOLESALE MANAGER Office Visit [facility] [address] [place] [address], [place] [address] Deon Taylor MD [address] [place] [id number] documented as of this encounter Visit Diagnoses Diagnosis Cervical myelopathy (HCC)- Primary Cervical spondylosis with myelopathy documented in this encounter Care Teams Business Objects Relationship Specialty Start Date End Date Karrie Phillips MD [address] [place] [address] PCP - General 03/13/22 documented as of this encounter
--- OUTSIDE RECORDS SUMMARY | 2024-04-11 13:17 | XMS_ITS | Encounter Summary ---
Author Organization [facility] Address [address] [facility] [place] [address] Care Team Providers Care Director Of Restaurants Name Role Phone Unavailable Primary Care Provider Unavailabl e Reason for Visit * Reason Comments Transitional Care Encounter Details Date Type Department Care Team (Late st Contact Info) Description 02/20/2022 Transitional Care Transitional Care at [address] [address] Madhavi Vega, newspaper press operator apprentice Social History Tobacco Use Types Packs/Day Years [...] telephone: Patient with recent IP discharge from [facility] on 02/19/22. RN attempted to reach Kandace Douglas today by telephone ([phone]) to complete 48 hour post discharge follow-up contact. RN was unable to reach Kandace at this time and this RN left voice message, encouraging patient to call this publicity writer back when available to provide update since last follow-up contact. RN will await call back from and will continue to follow Patient for Bridge clinic appointment. Call Duration: 1 min Madhavi Vega RN, BSN Clubhouse Attendant, [facility] Office: [phone] 02/20/2022 GRAPHER documented in this encounter Plan of Treatment Upcoming Encounters Date Type Department Care Team (Late st Contact Info) Description 06/02/2024 1:45 PM SONOGRAPHER Office Visit [facility] Orthoped[facility] [address] [place] [address], [facility] [place] [address] Deon Taylor MD [address] [place] [phone] documented as of this encounter Visit Diagnoses Not on filedocumented in this encounter
--- OUTSIDE RECORDS SUMMARY | 2024-04-11 13:17 | XMS_ITS | Encounter Summary ---
Author Organization [facility] Address [address] [facility] [place] [address] Care Team Providers Care Family Day Carer Name Role Phone Unavailable Primary Care Provider Unavailabl e Reason for Visit * Reason Comments Transitional Care Encounter Details Date Type Department Care Team (Late st Contact Info) Description 02/21/2022 Transitional Care Transitional Care at [address] [address] Madhavi Vega, medical office scheduler Social History Tobacco Use Types Packs/Day Years [...] telephone: Patient with recent IP discharge from [facility] on 02/19/22. RN attempted to reach Kandace Cole today by telephone ([phone]) to complete 48 hour post discharge follow-up contact. RN was unable to reach Kandace at this time and this RN left voice message, encouraging patient to call this greeting card writer back when available to provide update since last follow-up contact. RN will await call back from and will continue to follow Patient for Bridge clinic appointment. ?? Call Duration: 1 min Madhavi Vega RN, BSN Pediatric Dental Hygienist, [facility] Office: [phone] 02/21/2022 RVISOR KNITTING documented in this encounter Plan of Treatment Upcoming Encounters Date Type Department Care Team (Late st Contact Info) Description 06/02/2024 1:45 PM SUPERVISOR KNITTING Office Visit [facility], [facility] [place] [address] Deon Taylor MD [address] [place] [id number] documented as of this encounter Visit Diagnoses Not on filedocumented in this encounter
--- OUTSIDE RECORDS SUMMARY | 2024-04-11 13:17 | XMS_ITS | Encounter Summary ---
Author Organization [facility] Address [address] [facility] [place] [address] Care Team Prov[address] Care Road Monkey Name Role Phone Karrie Phillips MD Primary Care Provider [phone] Encounter Details Date Type Department Care Team (Latest Contact Info) Description 05/15/2022 1:27 PM AIR SHOVEL OPERATOR - 05/15/2022 11:59 PM [facility] Hospital Encounter [facility] OP DRAW STATION [address] [place] [phone] Unknown, Provider Discharge Disposition: Home or Self [...] mouth every evening 06/08/2022 saline nasal spray ([place]; Baby Fluker) 0.65 % nasal spray [place] 1 (one) spray into each nostril as [...] st Contact Info) Description 06/02/2024 1:45 PM AIR SHOVEL OPERATOR Office Visit [facility] - Orthopedics [address] [place] [address], [facility] [place] [address] Deon Taylor MD [address] [place] [address] documented as of this encounter Procedures Procedure Name Priority Date/Time Associated Diagnosis Comments TYPE + SCREEN PANEL Routine 05/15/2022 1 :52 PM AIR SHOVEL OPERATOR Preop examination CBC W/O DIFFERENTIAL Routine 05/15/2022 1:52 PM AIR SHOVEL OPERATOR Preop examination BASIC METABOLIC PANEL (CALCIUM TOTAL) Routine 05/15/2022 1:52 PM AIR SHOVEL OPERATOR Preop examination documented in this encounter Results * TYPE + SCREEN PANEL (05/15/2022 1:52 PM AIR SHOVEL OPERATOR) [facility] Antibody Screen NEG 3:13 PM AIR SHOVEL OPERATOR [facility] ABO Rh A POS 05/15/2022 3:13 PM AIR SHOVEL OPERATOR [facility] Blood Bank BLOOD SPECIMEN / Unknown Lab Venipuncture / Unknown 05/15/2022 1:52 PM AIR SHOVEL OPERATOR 05/15/2022 2:23 PM AIR SHOVEL OPERATOR Provider Unknown LAB - BLOOD BANK ORD ERABLES [facility] [address] [place] [address], [facility] [phone] * (ABNORMAL) BASIC METABOLIC PANEL (CALCIUM TOTAL) (05/15/2022 1:52 PM AIR SHOVEL OPERATOR) [facility] BUN 20 7 - 26 mg/dL 05/15/2022 2:49 PM [facility] Creatinine 1.53(H) 0.56 - 0.96 mg/dL 05/15/2022 2:49 PM [facility] Sodium 137 136 - 145 mmol/L 05/15/2022 2:49 PM [facility] Potassium 4.6(H) 3.5 - 4.5 mmol/L 05/15/2022 2:49 PM [facility] Chloride 103 98 - 107 mmol/L 05/15/2022 2:49 PM [facility] CO2 25 22 - 29 mmol/L 05/15/2022 2:49 PM [facility] Glucose 107 70 - 115 mg/dL 05/15/2022 2:49 PM [facility] Calcium 9.4 8.4 - 10.2 mg/dL 05/15/2022 2:49 PM [facility] Anion Gap 14 8 - 18 05/15/2022 2:49 PM [facility] BUN/Creatinine Ratio 13 7 - 23 05/15/2022 2:49 PM [facility] Osmolality Calculated 287 270 - 300 mOsm/kg 05/15/2022 2:49 PM [facility] eGFR by CKD-EPI 36(L) >=90 mL/min/1.7 3 m2 05/15/2022 2:49 PM [facility] Blood BLOOD SPECIMEN / Unknown Lab Venipuncture / Unknown 05/15/2022 1:52 PM AIR SHOVEL OPERATOR 05/15/2022 2:20 PM AIR SHOVEL OPERATOR Provider Unknown LAB - CHEMISTRY [facility] [address] [place] [address], [facility] [phone] * (ABNORMAL) CBC W/O DIFFERENTIAL (05/15/2022 1:52 PM [facility]) WBC 6.6 3.5 - 10.5 10? 3 /uL 05/15/2022 2:29 PM [facility] RBC 3.34(L) 3.80 - 5.20 10? 6 /uL 05/15/2022 2:29 PM [facility] Hemoglobin 9.9(L) 12.0 - 15.6 g/dL 05/15/2022 2:29 PM [facility] Hematocrit 30.4(L) 35.0 - 45.0 % 05/15/2022 2:29 PM [facility] MCV 91.0 80.7 - 98.3 fL 05/15/2022 2:29 PM [facility] MCH 29.6 26.7 - 34.0 pg 05/15/2022 2:29 PM [facility] MCHC 32.6 30.8 - 35.9 g/dL 05/15/2022 2:29 PM [facility] RDW-SD 43.3 36.0 - 50.0 fL 05/15/2022 2:29 PM [facility] RDW-CV 13.0 11.2 - 14.8 % 05/15/2022 2:29 PM [facility] Platelet Count 329 150 - 400 10? 3 /uL 05/15/2022 2:29 PM [facility] MPV 9.8 9.4 - 12.9 fL 05/15/2022 2:29 PM AIR SHOVEL OPERATOR [facility] nRBC Absolute 0.00 0 10? 3 /uL 05/15/2022 2:29 PM AIR SHOVEL OPERATOR [facility] nRBC Auto 0.0 0 /100 WBC 05/15/2022 2:29 PM AIR SHOVEL OPERATOR [facility] Blood BLOOD SPECIMEN / Unknown Lab Venipuncture / Unknown 05/15/2022 1:52 PM AIR SHOVEL OPERATOR 05/15/2022 2:20 PM AIR SHOVEL OPERATOR Provider Unknown LAB - HEMATOLOGY ORD ERABLES [facility] [address] [place] [address] [phone] documented in this encounter Visit Diagnoses Diagnosis Preop examination Preoperative examination, unspecified documented in this encounter Care Teams Road Monkey Relationship Specialty Start Date End Date Karrie Phillips MD [address] [place] [address] PCP - General 03/13/22 documented as of this encounter
--- OUTSIDE RECORDS SUMMARY | 2024-04-11 13:17 | XMS_ITS | Encounter Summary ---
Author Organization [facility] Address [address] [place] [address] Care Team Providers Care Pc Analyst Name Role Phone Karrie Phillips MD Primary Care Provider [phone] Reason for Visit * Auth/Cert (Routine) Specialty Diagnoses / Procedures Referred By Everardo fried Referred To Contact Diagnoses Cervical myelopathy (HCC) cervical myelopathy Procedures FUSION POSTERIOR CERVICAL (PCF) Referral ID Status Reason Start Date Expiration Date Visits Re quested Visits Authorized [id number] 1 1 Encounter Details Date Type Department Care Team (Late st Contact Info) Description 06/04/2022 5:08 AM WINDING RACK OPERATOR - 06/08/2022 9:15 PM [facility] Hospital Encounter SL 5S ACUTE [address] [place] [address] Deon Taylor MD [address] [place] [id number] Ama Gonzalez MD [address] [place] [address] 2L [facility] [place] [address] Surgery General Discharge Disposition: Rehab:Inpatient Social History [...] heating? Not hard at all 06/04/2022 [facility] - Occupational [...] Comments Blood Pressure 130/85 06/08/2022 8:09 PM WINDING RACK OPERATOR Pulse 65 06/08/2022 8:09 PM WINDING RACK OPERATOR Temperature 36.6 ??C (97.8 ??F) 06/08/2022 8:09 PM CS T Respiratory Rate 16 06/08/2022 8:09 PM WINDING RACK OPERATOR Oxygen Saturation 100% 06/08/2022 8:09 PM WINDING RACK OPERATOR Inhaled Oxygen Concentration - - Weight 60.5 kg (133 lb 6.4 oz) 06/04/2022 5:52 A M WINDING RACK OPERATOR Height 154.9 cm (5' 1 ) 06/04/2022 5:52 AM WINDING RACK OPERATOR Body Mass Index 25.21 06/04/2022 5:52 AM WINDING RACK OPERATOR documented in this encounter Functional Status Functional [...] Physician Discharge Summary Patient ID: Kandace Cole [id number] 72 year old 1950 Admit date: 06/04/2022 [...] PT/OT who are recommending rehab. Discharged to [facility]. ?? Consults: Orthopedics [...] 0.65 % nasal spray Commonly known as: [place]; Baby Jacob Flaxton 1 (one) spray into each nostril as [...] sure to ask the pharmacy when you pharmacy picking tech your prescription. You may also call your primary provider to ask if you should be taking your medication. FOLLOW-UP: It is important that you follow-up with all appointments that have been made on your behalf. These appointments include: Future Appointments Monday June 20, 2022 8:45 AM Appointment with Deon Taylor at [facility] 1L ([phone]) [address] [facility], [address] [facility] [address] If a follow-up with your primary care provider has not been scheduled, please schedule an appointment to follow-up on your hospitalization. If there is a conflict, please call the clinic ahead of time and reschedule the appointment. Regards, Internal Medicine Department [facility] [address] [place] [address] Orthopedic Spine Surgery Patient Discharge [...] please call 911. Follow up Contact Information: [facility] office contact information: [facility] ([facility]) [address] [place] [address], 1st [place] [address] [place] [id number] [facility], [address] [place] [address] Visit our website at [email or web address] for information about our practice and an interactive health encyclopedia. Please visit [email or web address] to access your health record, ask questions, request medication refills, and request appointments for non-urgent needs after you have configured your [employer] account. If you do not currently have access, please contact one of our staff members or call [phone]. For after hour emergencies, please call and press 0 for the diesel pile driver operator in order to page the orthopedic resident marketing operations assistant. This list of medications is preliminary and [...] TABLET BY MOUTH DAILY saline nasal spray ([place]; Baby Jacob) 0.65 % nasal spray Flaxton 1 (one) spray into each nostril as [...] Tammi Perez MD, 06/08/2022 at 3:12 PM ING RACK OPERATOR Associated attestation - Ama Gonzalez MD - 06/08/2022 7:17 PM WINDING RACK OPERATOR I have verified the documentation and discharge [...] falls and polypharmacy, who was admitted to [facility] spine 06/04 for a planned cervical-thoracic posterior [...] Tammi Perez MD - 06/07/2022 11:07 AM WINDING RACK OPERATOR A Note From Your Doctors: Dear Kandace [...] 0.65 % nasal spray Commonly known as: [place]; Baby Jacob Flaxton 1 (one) spray into each nostril as [...] sure to ask the pharmacy when you pharmacy picking tech your prescription. You may also call your primary provider to ask if you should be taking your medication. FOLLOW-UP: It is important that you follow-up with all appointments that have been made on your behalf. These appointments include: Future Appointments Monday June 20, 2022 8:45 AM Appointment with Deon Taylor at [facility] 1L ([phone]) [address] [facility] [address] If a follow-up with your primary care provider has not been scheduled, please schedule an appointment to follow-up on your hospitalization. If there is a conflict, please call the clinic ahead of time and reschedule the appointment. Regards, Internal Medicine Department [facility] [address] [place] [address] Orthopedic Spine Surgery Patient Discharge [...] please call 911. Follow up Contact Information: [facility] office contact information: [facility] ([facility]) [address] [place] [address], 1st [place] [address] [facility] [address] [facility], [address] [place] [address] Visit our website at [email or web address] for information about our practice and an interactive health encyclopedia. Please visit [email or web address] to access your health record, ask questions, request medication refills, and request appointments for non-urgent needs after you have configured your [employer] account. If you do not currently have access, please contact one of our staff members or call [phone]. For after hour emergencies, please call and press 0 for the diesel pile driver operator in order to page the orthopedic resident marketing operations assistant. ING RACK OPERATOR documented in this encounter Medications at Time [...] mouth every evening 06/08/2022 saline nasal spray ([place]; Baby Jacob) 0.65 % nasal spray Flaxton 1 (one) spray into each nostril as [...] to allow for safe mobility Outcome: Progressing ING RACK OPERATOR * Makenzie Choi RN - 06/08/2022 3:57 [...] 1420 by Makenzie Choi RN Outcome: Progressing ING RACK OPERATOR * Charissa Murphy - 06/08/2022 2:52 PM CST Facility Transfer Note Level of Care: Actual level of care at discharge: Acute Rehab Facility Facility Name: (include name of person confirming admission): Actual discharge provider: [facility] Made Aware of Special Needs (if applicable): n/a RN Call Report to:[phone] Fax D/C Orders to:[phone] MD to MD: Dr Baldwin [phone] Transportation (company and number): [employer] EMS: [phone] Certificate of Medical Necessity rationale: weakness, impaired mobility, unsteady gait, spinal precautions Date/time of transfer: 06-08-22 @ Accepting MD and contact #: Denny Completed and Signed [id number] (if applicable): n/a Family/Other Notified of Transfer (name/phone): patient Authorization Skilled Care: Authorization for Transportation: Verified Qualifying Stay(Skilled Only): NOT APPLICABLE Comments: Name/Phone number: Charissa Lawrence Jeffrey [phone] ING RACK OPERATOR * Joanna Easley PT - 06/08/2022 2:24 PM CST [facility] Physical Medicine and Rehabilitation Physical Therapy Progress Note Patient: Kandace Cole Med Record Number: [id number] Date of : 1950 Age: [age] year [...] as Tolerated Spine Precautions: Yes Spine Precautions: [place] OBJECTIVE: At start of therapy session, patient [...] ambulate??75??feet with minimal assist??and appropriate AD ?? Fdc Goal(s): Patient to discharge to appropriate next [...] light within reach, with Makenzie HANCOCK aware. ING RACK OPERATOR * Makenzie Choi RN - 06/08/2022 2:20 [...] to allow for safe mobility Outcome: Progressing ING RACK OPERATOR * Annemarie Collazo COTA - 06/08/2022 2:04 PM CST [facility] Physical Medicine and Rehabilitation Occupational Therapy Progress Note Patient: Kandace Cole [facility] Record Number: [id number] Date of : 1950 Age: [age] year [...] perform bed to chair??with stand by assist Poultry Scientist Goal(s): Patient to discharge to appropriate next [...] with therapy cues visible on white board. ING RACK OPERATOR * Cammy Aleman RN - 06/08/2022 12:51 [...] Relation: Brother Secondary Emergency Contact: JanuaryBarbara Address: [place], [place] Relation: Other Transportation at Discharge: Family [...] get more.: Never true Medication affordability concerns: Orrum: Cammy Aleman RN Case workforce manager: [phone] 06/08/2022 ING RACK OPERATOR * Tammi Perez MD - 06/08/2022 10:20 AM CST Internal Medicine Progress Note Patient: Kandace Cole (:1950) Room: [facility] Date of admission: 06/04/2022 No of days [...] results for input(s): MG in the last 86191 hours. Phosphorus: Recent Labs Component Name 06/08/2221206/07/2222306/06/22306 PHOS 2.5* 2.7* 3.2 Coagulation: No results for input(s): PT, INR, PTT in the last 61796 hours. Micro Microbiology Results (Displays last 21 [...] ? Tammi Perez MD PGY-3 Internal Medicine ING RACK OPERATOR Associated attestation - Ama Gonzalez MD - 06/08/2022 10:42 PM WINDING RACK OPERATOR I have verified the documentation of the [...] Easley PT - 06/08/2022 10:15 AM CST [facility] Department of Physical Medicine & Rehabilitation Progress Note Patient: Kandace Cole Med Record Number: [id number] Date of : 1950 Age: [age] year old 06/08/22 1015 Missed Visit Missed Visit Other (Comment) (Patient just back to bed. Requested therapy at later time.) ING RACK OPERATOR * Charissa Murphy - 06/08/2022 9:55 AM CST Saturday Summary Note Discharge Level of Care: Rehab Discharge Destination:[facility] Phone Number: (Tracey peña) Fax Number: Insurance Auth:auth will need to be done as patient has [facility] Anticipated Mode of Transportation: to be determined (EMS) or person vehicle Contacts (Name, relationship, phone #): Anticipated DC Date: patient is ready for disposition Pending Needs: review from rehab for acceptance and authorization will need to be done. Comments: Liaison is aware of this referral and will review. DASHAWN was called by [employer] [phone] saying to call them as two rehab's have put in request ([facility] and [facility]) DASHAWN informed that [facility] has been the chosen provider and never spoke to anyone at [facility]. International Trade Analyst with [employer] informed DASHAWN that it's currently under review. DASHAWN provided contact information for payable representative to call back once decision has been made. Charissa Murphy Phone [phone] 06/08/2022 ING RACK OPERATOR * Heather Sethi - 06/08/2022 8:52 AM CST Internal Medicine Progress Note Patient: Kandace Cole (:1950) Room: [facility]/ Date of admission: 06/04/2022 No of days [...] results for input(s): MG in the last 51738 hours. Phosphorus: Recent Labs Component Name 06/08/2221206/07/2222306/06/22 030 PHOS 2.5* 2.7* 3.2 Coagulation: No results for input(s): PT, INR, PTT in the last 23631 hours. Micro Microbiology Results (Displays last 21 [...] is HDS. Heather Sethi MS3 Internal Medicine ING RACK OPERATOR Associated attestation - Ama Gonzalez MD - 06/08/2022 7:11 PM WINDING RACK OPERATOR I have verified the documentation of the medical student. This note is for educational purposes only. Please refer to the resident's note for complete note for details and my assessment. Ama Gonzalez MD 06/08/2022 * Joey Dickens MD - 06/08/2022 5:50 AM CST [facility] Orthopedic Spine Surgery Daily Progress Note Kandace Cole, 72 year old, female : 1950 CSN: [id number] Primary Care Physician: Karrie Phillips MD, MD [...] for input(s): PT, INR in the last 86471 hours. No results for input(s): PTT in the last 59477 hours. Cultures No results found for this or any previous visit (from the past 248 hour(s)). Physical Exam General: Awake, alert, follows commands, in no acute distress Neck: - C-collar/Native J: Present - Tenderness to palpation: Deferred [...] concerns Joey Dickens MD 06/08/2022 5:50 AM ING RACK OPERATOR * Vivian Boo RN - 06/07/2022 10:43 [...] at normal rate and depth. Outcome: Progressing ING RACK OPERATOR * Ama Gonzalez MD - 06/07/2022 10:38 [...] falls and polypharmacy, who was admitted to [facility] 06/04 for a planned cervical-thoracic posterior [...] % IV bolus 25 g Intravenous PRN Pdama Morales MD ??? escitalopram (Lexapro) tablet 20 [...] Tammi Perez MD ??? saline nasal spray ([place]; Baby Jacob) 0.65 % nasal spray 2 spray 2 [...] input(s): PT, INR, APTT in the last 62404 hours. Recent Labs Component Name 03/09/23 0224 [...] and Palliative Medicine Attending 06/07/2022 10:39 PM ING RACK OPERATOR * Makenzie Choi RN - 06/07/2022 6:28 [...] to allow for safe mobility Outcome: Progressing ING RACK OPERATOR * Daniella Le PT - 06/07/2022 2:30 PM CST [facility] Physical Medicine and Rehabilitation Physical Therapy Progress Note Patient: Kandace Cole [facility] Record Number: [id number] Date of : 1950 Age: [age] year [...] (in C-collar) Spine Precautions: Yes Spine Precautions: [place] OBJECTIVE: At start of therapy session, patient [...] feet with minimal assist and appropriate AD Fdc Goal(s): Patient to discharge to appropriate next [...] on , with call light within reach. ING RACK OPERATOR * Sherrie Boyer, OT - 06/07/2022 1:48 PM CST [facility] Physical Medicine and Rehabilitation Occupational Therapy Progress Note Patient: Kandace Cole Med Record Number: [id number] Date of : 1950 Age: [age] year [...] Pt agreeable to therapy; [facility] Assessment: Pain Location #1 [...] to chair with stand by assist ?? Fdc Goal(s): Patient to discharge to appropriate next [...] light within reach, with RN, Migdalia aware. ING RACK OPERATOR * Charissa Murphy - 06/07/2022 10:43 AM CST DASHAWN rec'd call from [facility]) to say Cadence will be here to assess patient. If patient isin agreement to going, auth will be initiated. SW to wait for liaison to come and patient to make determination on rehab choice. ISELA Hensley Care Coordination Paper Plate Machine Tender ING RACK OPERATOR * Heather Sethi - 06/07/2022 10:12 AM CST Internal Medicine Progress Note Patient: Kandace Cole (:1950) Room: [facility] Date of admission: 06/04/2022 No of days [...] results for input(s): MG in the last 95456 hours. Phosphorus: Recent Labs Component Name 06/07/2222306/06/2230602/16/22 0757 PHOS 2.7* 3.2 3.9 Coagulation: No results for input(s): PT, INR, PTT in the last 08854 hours. Micro Microbiology Results (Displays last 21 [...] is HDS. Heather Sethi MS3 Internal Medicine ING RACK OPERATOR Associated attestation - Ama Gonzalez MD - 06/07/2022 10:37 PM WINDING RACK OPERATOR I have verified the documentation of the medical student. This note is for educational purposes only. Please refer to the resident's note for complete note for details and my assessment. Ama Gonzalez MD 06/07/2022 * Joey Dickens MD - 06/07/2022 5:31 AM CST [facility] Orthopedic Spine Surgery Daily Progress Note Kandace Cole, 72 year old, female : 1950 CSN: [id number] Primary Care Physician: Karrie Phillips MD, MD [...] for input(s): PT, INR in the last 24778 hours. No results for input(s): PTT in the last 69674 hours. Cultures No results found for this or any previous visit (from the past 248 hour(s)). Physical Exam General: Awake, alert, follows commands, in no acute distress Neck: - C-collar/Native J: Present - Tenderness to palpation: Deferred [...] concerns Joey Dickens MD 06/07/2022 5:31 AM ING RACK OPERATOR Associated attestation - Deon Taylor MD - 06/07/2022 4:44 PM WINDING RACK OPERATOR I have seen and evaluated the patient [...] found in the flowsheet documentation) Outcome: Progressing ING RACK OPERATOR * Annemarie Collazo COTA - 06/06/2022 3:59 PM CST [facility] Department of Physical Medicine & Rehabilitation Progress Note Patient: Kandace Cole Med Record Number: [id number] Date of : 1950 Age: [age] year old 06/06/22 1017 Missed Visit Missed Visit RN Cancel (Pt receiveing blood) ING RACK OPERATOR * Heather Sethi - 06/06/2022 1:56 PM CST Internal Medicine Progress Note Patient: Kandace Cole (:1950) Room: [facility] Date of admission: 06/04/2022 No of days [...] results for input(s): MG in the last 14100 hours. Phosphorus: Recent Labs Component Name 06/06/2230602/16/22756 PHOS 3.2 3.9 Coagulation: No results for input(s): PT, INR, PTT in the last 85278 hours. Micro Microbiology Results (Displays last 21 [...] is HDS. Heather Sethi MS3 Internal Medicine ING RACK OPERATOR Associated attestation - Ama Gonzalez MD - 06/06/2022 8:42 PM WINDING RACK OPERATOR I have verified the documentation of the medical student. This note is for educational purposes only. Please refer to the resident's note for complete note for details and my assessment. Ama Gonzalez MD 06/06/2022 * Joanna Easley PT - 06/06/2022 10:00 AM CST [facility] Department of Physical Medicine & Rehabilitation Progress Note Patient: Kandace Cole Med Record Number: [id number] Date of : 1950 Age: [age] year old 06/06/22 1000 Missed Visit Missed Visit RN Cancel (Patient receiving blood) ING RACK OPERATOR * Tammi Perez MD - 06/06/2022 9:01 AM CST Internal Medicine Progress Note Patient: Kandace Cole (:1950) Room: [facility] Date of admission: 06/04/2022 No of days [...] results for input(s): MG in the last 64039 hours. Phosphorus: Recent Labs Component Name 06/06/22 0307 02/16/22 0757 PHOS 3.2 3.9 Coagulation: No results for input(s): PT, INR, PTT in the last 21383 hours. Micro Microbiology Results (Displays last 21 [...] ? Tammi Perez MD PGY-3 Internal Medicine ING RACK OPERATOR Associated attestation - Ama Gonzalez MD - 06/06/2022 9:13 PM WINDING RACK OPERATOR I have verified the documentation of the [...] falls and polypharmacy, who was admitted to [facility] 06/04 for a planned cervical-thoracic posterior [...] 72 year old, female : 1950 CSN: [id number] Primary Care Physician: Karrie Phillips MD, MD [...] for input(s): PT, INR in the last 24075 hours. No results for input(s): PTT in the last 28120 hours. Cultures No results found for this or any previous visit (from the past 248 hour(s)). Physical Exam General: Awake, alert, follows commands, in no acute distress Neck: - C-collar/Native J: Present - Tenderness to palpation: Deferred [...] concerns Joey Dickens MD 06/06/2022 8:08 AM ING RACK OPERATOR Associated attestation - Deon Taylor MD - 06/06/2022 12:41 PM WINDING RACK OPERATOR I have seen and evaluated the patient [...] to allow for safe mobility Outcome: Progressing ING RACK OPERATOR * Slim Camacho RN - 06/05/2022 11:00 [...] to allow for safe mobility Outcome: Progressing ING RACK OPERATOR * Tammi Perez MD - 06/05/2022 4:34 PM CST Internal Medicine Progress Note Patient: Kandace Cole (:1950) Room: [facility] Date of admission: 06/04/2022 No of days [...] results for input(s): MG in the last 63818 hours. Phosphorus: Recent Labs Component Name 02/16/22 0757 PHOS 3.9 Coagulation: No results for input(s): PT, INR, PTT in the last 26235 hours. Micro Microbiology Results (Displays last 21 [...] ? Tammi Perez MD PGY-3 Internal Medicine ING RACK OPERATOR Associated attestation - Ama Gonzalez MD - 06/05/2022 8:56 PM WINDING RACK OPERATOR I have verified the documentation of the [...] falls and polypharmacy, who was admitted to [facility] 06/04 for a planned cervical-thoracic posterior [...] preference is to stay within the [facility] Network and its affiliates.: Unsure Comments: Lives with: Other (Comment) (Grandson) Physical Limitations: None Independent with the use of a ww Requires Assistance With: None Preferred Pharmacy: [facility] [address] [facility] [address] [address] [facility] [address] Advance Directive: No Advance Directive Information Given: Not Applicable Would you like assistance on completing and executing or revising an Advance Directive?: No Payer/Plan Subscriber Name Rel Member # Group # [facility] MANAGED MEDICARE * KANDACE COLE Mark [id number] [address] [id number] 16 at 4:08 PM 06/05/2022. Met with patient Family Support (name and phone): Extended Emergency Contact Information Primary Emergency Contact: BARBARA CISNEROS Mobile Relation: Brother Secondary Emergency Contact: Barbara Cisneros Address: [place], [place] Relation: Other Patient or payable representative requests care coordination reach out to family or caregiver listed above regarding discharge planning and at time of discharge? Yes grandson Patient/Family provided with list of resources? Unknown Preferred Provider / High Quality Network List given?: Unknown Reason for provider choice: Unknown Equipment at Home: Chair-Shower;Grab Bars;Cane-Small Base Quad;Walker-2 Wheeled;Walker-4 Wheeled with Seat List DME pt. requires but does not have.: None Paper Plate Machine Tender Referral: Yes -Placement Will continue to follow. For any questions or needs please contact: Refinery Operator Light Ends Recovery Name/Phone number: Cammy Aleman RN Case workforce manager: [phone] 06/05/2022 ING RACK OPERATOR * Heather Sethi - 06/05/2022 2:44 PM CST Internal Medicine Progress Note Patient: Kandace Cole (:1950) Room: [facility] Date of admission: 06/04/2022 No of days [...] results for input(s): MG in the last 62456 hours. Phosphorus: Recent Labs Component Name 02/16/22 0757 PHOS 3.9 Coagulation: No results for input(s): PT, INR, PTT in the last 44099 hours. Micro Microbiology Results (Displays last 21 [...] is HDS. Heather Sethi MS3 Internal Medicine ING RACK OPERATOR Associated attestation - Ama Gonzalez MD - 06/05/2022 11:04 PM WINDING RACK OPERATOR I have verified the documentation of the [...] Achieves restful, refreshing sleep pattern. Outcome: Progressing ING RACK OPERATOR * Sandra Brown, PT - 06/05/2022 10:27 AM CST [facility] Physical Medicine and Rehabilitation Physical Therapy Initial Evaluation Note Patient: Kandace Cole [facility] Record Number: [id number] Date of : 1950 Age: [age] year [...] closed fractures of facial bone, initial encounter ([facility]) Abdominal pain Abnormal serum creatinine level Anemia Ferrell's esophagus Cardiomegaly Chronic kidney disease Chronic obstructive pulmonary disease ([facility]) Chronic depression Dyspnea on exertion Benign essential hypertension Glaucoma Hyperkalemia Hyposmolality Hyperthyroidism Hypothyroidism Intractable chronic migraine without aura Iron deficiency anemia Leukocytosis Macular degeneration Migraine Ulnar neuropathy Type 2 diabetes mellitus ([facility]) Type 2 diabetes mellitus with stage 3 chronic kidney disease, without long-term current use of insulin ([facility]) Temporomandibular joint disorder Systemic sclerosis ([facility]) Sprain of ankle Sciatica Recurrent major depression in remission ([facility]) Raynaud's disease Primary fibromyalgia syndrome Polyp [...] feet with minimal assist and appropriate AD Poultry Scientist Goal(s): Patient to discharge to appropriate next [...] reach, with RNMigdalia, aware. All lines intact. ING RACK OPERATOR * Olimpia Adames, OT - 06/05/2022 10:22 AM CST [facility] Physical Medicine and Rehabilitation Occupational Therapy Initial Evaluation Note Patient: Kandace Cole Med Record Number: [id number] Date of : 1950 Age: [age] year [...] closed fractures of facial bone, initial encounter ([facility]/HCC) Abdominal pain Abnormal serum creatinine level Anemia Ferrell's esophagus Cardiomegaly Chronic kidney disease Chronic obstructive pulmonary disease (CMS/HCC) Chronic depression Dyspnea on exertion Benign essential hypertension Glaucoma Hyperkalemia Hyposmolality Hyperthyroidism Hypothyroidism Intractable chronic migraine without aura Iron deficiency anemia Leukocytosis Macular degeneration Migraine Ulnar neuropathy Type 2 diabetes mellitus ([facility]/HCC) Type 2 diabetes mellitus with stage 3 chronic kidney disease, without long-term current use of insulin ([facility]/HCC) Temporomandibular joint disorder Systemic sclerosis ([facility]) Sprain of ankle Sciatica Recurrent major depression in remission ([facility]) Raynaud's disease Primary fibromyalgia syndrome Polyp of colon Perineal pain Paronychia of toe of right foot Onychomycosis of toenail Nonexudative 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 Nausea Multiple bruises Mixed hyperlipidemia Mixed collagen vascular disease ([facility]) Past Medical History: Diagnosis Date ??? Anemia ??? Ferrell's esophagus ??? CKD (chronic kidney disease), stage III ([facility]) ??? Diabetes ??? Disease of esophagus [...] bed to chair with stand by assist [facility] Goal(s): Patient to discharge to appropriate next [...] light within reach, with Migdalia HANCOCK aware. ING RACK OPERATOR * Joey Dickens MD - 06/05/2022 6:53 AM CST [facility] Orthopedic Spine Surgery Daily Progress Note Kandace Cole, 72 year old, female : 1950 CSN: [id number] Primary Care Physician: Karrie Phillips MD, MD [...] for input(s): PT, INR in the last 82063 hours. No results for input(s): PTT in the last 19607 hours. Cultures No results found for this or any previous visit (from the past 248 hour(s)). Physical Exam General: Awake, alert, follows commands, in no acute distress Neck: - C-collar/Native J: Present - Tenderness to palpation: Deferred [...] concerns Joey Dickens MD 06/05/2022 6:53 AM ING RACK OPERATOR Associated attestation - Deon Taylor MD - 06/05/2022 4:23 PM WINDING RACK OPERATOR I have seen and evaluated the patient [...] Achieves restful, refreshing sleep pattern. Outcome: Progressing ING RACK OPERATOR * Yaritza Lynch RN - 06/04/2022 2:46 [...] Achieves restful, refreshing sleep pattern. Outcome: Progressing ING RACK OPERATOR * Padma Morales MD - 06/04/2022 11:51 [...] Activity: as tolerated from ortho perspective in [place] collar 2. PT/OT 3. Pain Control- oral medications 4. DVT Prophylaxis: ambulation, SCDs 5. Drains? HV x1 6. Continue perioperative ancef 7. Admit to floor under Ortho Spine 8. Please page Ortho Spine with any additional questions or concerns Padma Morales MD 06/04/2022 4:23 PM ING RACK OPERATOR documented in this encounter H&P Notes * Padma Morales MD - 06/04/2022 5:28 AM CST Orthopedic Spine Surgery H&P Note Kandace Cole, 72 year old, female : 1950 CSN: [id number] Diagnosis/Procedures 1.) Cervical myelopathy Today's Date: 06/04/2022 [...] concerns Padma Morales MD 06/04/2022 5:28 AM ING RACK OPERATOR Associated attestation - Deon Taylor MD - 06/04/2022 7:15 AM WINDING RACK OPERATOR I have seen and evaluated the patient and agree with the resident's assessment and plan as stated above. I have independently reviewed all imaging studies. Deon Taylor MD documented in this encounter Consult Notes * Charissa Murphy - 06/06/2022 4:02 PM CSTAssociated Order(s): IP CONSULT TO INFORMATICS ANALYST SW newly assigned and following for placement and disposition. SW acknowledge referral for placement in facility. SW was informed that patient will need rehab. SW made referrals. 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 Weight hx limited; RD noted 6.5% BW [...] Pain affecting intake: No Estimated Needs: KCAL: [id number] (25-30 kcal/kg ABW) Protein (g): 90 (1.5 [...] Goal Progress: New goal established Ascom: [id number] ING RACK OPERATOR * Adolph Juarez, DIRECTOR PRODUCT SAFETY-DIRECTOR PATIENT - 06/04/2022 2:17 PM CSTAssociated Order(s): IP [...] Social: Lives at home with grandson in [facility]. Does not smoke or drink. Has 1 [...] 200 MG tablet ??? saline nasal spray ([place]; Baby Jacob) 0.65 % nasal spray RCS: Memory very [...] mouth once daily ??? saline nasal spray ([place]; Baby Jacob) 0.65 % nasal spray [place] 1 (one) spray into each nostril as [...] input(s): PT, INR, APTT in the last 62948 hours. Cardiac markers: Recent Labs Component Name [...] Juarez, ANP-, Geriatrics 06/04/2022 2:17 PM Pager: [phone] ING RACK OPERATOR Associated attestation - Dorothy Stahl MD - 06/04/2022 10:04 PM WINDING RACK OPERATOR I have verified the documentation of the MANAGER HARDWARE including all history, exam, and medical decision-making [...] Social: Lives at home with grandson in [facility]. Does not smoke or drink. Has 1 [...] (SEROquel) 200 MG tablet saline nasal spray ([place]; Baby Jacob) 0.65 % nasal spray RCS: Memory very [...] by mouth once daily saline nasal spray ([place]; Baby Jacob) 0.65 % nasal spray [place] 1 (one) spray into each nostril as [...] input(s): PT, INR, APTT in the last 25998 hours. Cardiac markers: Recent Labs Component Name [...] senna). -Falls/Aspiration precautions. -Rest of plan per MANAGER HARDWARE note. Thank you for this consult. We will continue to follow along with you. Please call with questions. Keely Stahl MD Geriatric attending Pager: [phone] documented in this encounter OR Notes * Brief Op Note - Padma Morales MD - 06/04/2022 8:42 AM CST Brief Op Note Procedure: C5-C6 laminectomy, C4-T2 posterior instrumented spinal fusion Patient Name: Kandace Cole Date of Service: 06/04/2022 Pre-Op Diagnosis: cervical myelopathy Post-Op Diagnosis: Same as above Surgeon(s) and Role: * Deon Taylor MD - Primary Cardiac Specialist(s): Padma Morales MD - Resident - Assisting [...] Implant Name Type Inv. Item Serial No. Data Warehouse Specialist Lot No. [id number] No. Used Action Jena Bone Void 10Ml Dbm Grftn Algrf Ptty Jean Bone Void 10Ml Dbm Grftn Algrf Ptty [employer] [id number] N/A 1 Implanted Jean Bone Void 10Ml Dbm Grftn Algrf Ptty Jean Bone Void 10Ml Dbm Grftn Algrf Ptty [employer]onic Inc [id number] N/A 1 Implanted Graft Bone Canc 4-9.5Mm 15Cc Frzdr Chp Graft Bone Canc 4-9.5Mm 15Cc Frzdr Chp [employer]ource [id number] 1 Implanted Graft Bone Canc 4-9.5Mm 30Cc Algrf Frzdr Graft Bone Canc 4-9.5Mm 30Cc Algrf Frzdr [employer] [id number] N/A 1 Implanted 3.5 x 14mm screw Synthes Spine N/A 4 Implanted 4.0x 20mm screw Synthes Spine N/A 2 Implanted 5.0 x 24mm screw Synthes Spine N/A 2 Implanted 4.5 x 26mm screw Synthes Spine N/A 2 Implanted screw caps Synthes Spine N/A 10 Implanted 90mm rods Synthes Spine N/A 2 Implanted Padma Morales MD ING RACK OPERATOR * Operative - Deon Taylor MD - 06/04/2022 8:42 AM CST Kandace Maria Douglas 1950 Date of Surgery 06/04/22 PREOPERATIVE DIAGNOSIS: cervical myelopathy POSTOPERATIVE DIAGNOSIS: same PROCEDURES: 1. Cervical Laminectomy C5/6 with partial medial facetectomies (65557) 2. Posterior Arthrodesis C4-T2 (84675, [id number]) 3. Posterior instrumentation C4-T2 (29168) 4. Application of local autograft and allograft (, ) 5. Application and removal of cranial tongs () SURGEON: eDon Taylor MD DUCT LAYER HELPER: Varun Matute MD ANESTHESIA: General. COMPLICATIONS: None. [...] for further surgery, blood clots, PE, stroke, [place],paralysis, . After we reviewed of the risks [...] the appropriate lines and leads were placed [employer] tongs were positioned over the center rotation [...] SSEPs remained stable throughout. Deon Taylor MD ING RACK OPERATOR documented in this encounter Plan of Treatment Upcoming Encounters Date Type Department Care Team (Late st Contact Info) Description 06/02/2024 1:45 PM WINDING RACK OPERATOR Office Visit [facility] - Orthopedics [address] [place] [address], [place] [address] Deon Taylor MD [address] [place] [id number] documented as of this encounter Procedures Procedure Name Priority Date/Time Associated Diagnosis Comments XR THORACIC SPINE 2VW Routine 07/18/2022 11:04 AM CDT Degeneration of cervical intervertebral disc GLUCOSE - POINT OF CARE Routine 06/08/2022 7:47 AM WINDING RACK OPERATOR CBC W/O DIFFERENTIAL Routine 06/08/2022 2:13 AM WINDING RACK OPERATOR Degeneration of cervical intervertebral disc BASIC METABOLIC PANEL (CALCIUM TOTAL) Routine 06/08/2022 2:13 AM WINDING RACK OPERATOR Degeneration of cervical intervertebral disc PHOSPHORUS BLOOD Routine 06/08/2022 2:13 AM WINDING RACK OPERATOR MAGNESIUM BLOOD Routine 06/08/2022 2:13 AM WINDING RACK OPERATOR GLUCOSE - POINT OF CARE Routine 06/07/2022 11:25 PM WINDING RACK OPERATOR GLUCOSE - POINT OF CARE Routine 06/07/2022 9:31 PM WINDING RACK OPERATOR GLUCOSE - POINT OF CARE Routine 06/07/2022 5:52 PM WINDING RACK OPERATOR GLUCOSE - POINT OF CARE Routine 06/07/2022 12:00 PM WINDING RACK OPERATOR GLUCOSE - POINT OF CARE Routine 06/07/2022 8:21 AM WINDING RACK OPERATOR CBC W/O DIFFERENTIAL Routine 06/07/2022 2:24 AM WINDING RACK OPERATOR Degeneration of cervical intervertebral disc BASIC METABOLIC PANEL (CALCIUM TOTAL) Routine 06/07/2022 2:24 AM WINDING RACK OPERATOR Degeneration of cervical intervertebral disc PHOSPHORUS BLOOD Routine 06/07/2022 2:24 AM WINDING RACK OPERATOR MAGNESIUM BLOOD Routine 06/07/2022 2:24 AM WINDING RACK OPERATOR GLUCOSE - POINT OF CARE Routine 06/06/2022 8:38 PM WINDING RACK OPERATOR GLUCOSE - POINT OF CARE Routine 06/06/2022 5:02 PM WINDING RACK OPERATOR GLUCOSE - POINT OF CARE Routine 06/06/2022 12:26 PM WINDING RACK OPERATOR TRANSFUSE RED BLOOD CELL LEUKOREDUCED UNIT(S) Routine 06/06/2022 9:42 AM WINDING RACK OPERATOR PREPARE RBC LEUKOREDUCED UNIT Routine 06/06/2022 9:36 AM WINDING RACK OPERATOR GLUCOSE - POINT OF CARE Routine 06/06/2022 8:00 AM WINDING RACK OPERATOR PTH INTACT W/O CALCIUM AM Draw 06/06/2022 3:07 AM WINDING RACK OPERATOR HEMOGLOBIN A1C Routine 06/06/2022 3:07 AM WINDING RACK OPERATOR VITAMIN D 25-HYDROXY AM Draw 06/06/2022 3:07 AM WINDING RACK OPERATOR CBC W/O DIFFERENTIAL Routine 06/06/2022 3:07 AM WINDING RACK OPERATOR Degeneration of cervical intervertebral disc BASIC METABOLIC PANEL (CALCIUM TOTAL) Routine 06/06/2022 3:07 AM WINDING RACK OPERATOR Degeneration of cervical intervertebral disc PHOSPHORUS BLOOD Routine 06/06/2022 3:07 AM WINDING RACK OPERATOR MAGNESIUM BLOOD Routine 06/06/2022 3:07 AM WINDING RACK OPERATOR FOLATE Routine 06/06/2022 3:07 AM WINDING RACK OPERATOR VITAMIN B12 AM Draw 06/06/2022 3:07 AM WINDING RACK OPERATOR IRON + TRANSFERRIN PANEL Routine 06/06/2022 3:07 AM WINDING RACK OPERATOR FERRITIN Routine 06/06/2022 3:07 AM WINDING RACK OPERATOR GLUCOSE - POINT OF CARE Routine 06/05/2022 8:51 PM WINDING RACK OPERATOR GLUCOSE - POINT OF CARE Routine 06/05/2022 5:59 PM WINDING RACK OPERATOR GLUCOSE - POINT OF CARE Routine 06/05/2022 4:27 PM WINDING RACK OPERATOR GLUCOSE - POINT OF CARE Routine 06/05/2022 12:37 PM WINDING RACK OPERATOR CBC W/O DIFFERENTIAL Timed 06/05/2022 12:32 PM WINDING RACK OPERATOR XR CERVICAL SPINE 2 OR 3VW Routine 06/05/2022 9:35 AM WINDING RACK OPERATOR Degeneration of cervical intervertebral disc GLUCOSE - POINT OF CARE Routine 06/05/2022 8:39 AM WINDING RACK OPERATOR CBC W/O DIFFERENTIAL Routine 06/05/2022 4:58 AM WINDING RACK OPERATOR Degeneration of cervical intervertebral disc BASIC METABOLIC PANEL (CALCIUM TOTAL) Routine 06/05/2022 4:58 AM WINDING RACK OPERATOR Degeneration of cervical intervertebral disc GLUCOSE - POINT OF CARE Routine 06/04/2022 8:20 PM WINDING RACK OPERATOR GLUCOSE - POINT OF CARE Routine 06/04/2022 11:51 AM WINDING RACK OPERATOR FL JOSÉ LUIS SURGERY STAT 06/04/2022 11:30 AM WINDING RACK OPERATOR Degeneration of cervical intervertebral disc FUSION POSTERIOR CERVICAL (PCF) 06/04/2022 8:42 AM WINDING RACK OPERATOR Cervical myelopathy (HCC) Case Notes LATEX ALLERGY Special Needs PRONE, C-ARM CERVICAL ATTACHMENT JULIETH DONALD NEURO MONITORING POWER:4mm jose, 4mm cutter, 2mm cutter DEPUY: DELILAH MCGINNIS [phone]; [place] [phone]--reps notified mk 06/01 GLUCOSE - POINT OF CARE Routine 06/04/2022 6:39 AM WINDING RACK OPERATOR TYPE + SCREEN PANEL MARLEE 06/04/2022 6:39 AM WINDING RACK OPERATOR Preop examination documented in this encounter [...] MD on 07/18/2022 11:31 AM Lyla Blackwell DIRECTOR PRODUCT SAFETY-DIRECTOR PATIENT DIAGNOSTIC IMAG ING ORDERABLES * GLUCOSE - POINT OF CARE (06/08/2022 7:47 AM WINDING RACK OPERATOR) Glucose WB/POC 95 70 - 115 mg/dL 06/08/2022 7:48 AM WINDING RACK OPERATOR [facility] Specimen Type Arterial 06/08/2022 7:48 AM WINDING RACK OPERATOR [facility] Blood BLOOD SPECIMEN / Unknown 06/08/2022 7:47 AM WINDING RACK OPERATOR 06/08/2022 7:48 AM WINDING RACK OPERATOR Ama Gonzalez MD LAB - POINT OF C ARE ORDERABLES [address] [address], [facility] [phone] * (ABNORMAL) PHOSPHORUS BLOOD (06/08/2022 2:13 AM WINDING RACK OPERATOR) Phosphorus 2.5(L) 2.9 - 5.1 mg/dL 06/08/2022 3:12 AM WINDING RACK OPERATOR [facility] Blood BLOOD SPECIMEN / Unknown Lab Venipuncture / Unknown 06/08/2022 2:13 AM WINDING RACK OPERATOR 06/08/2022 2:44 AM WINDING RACK OPERATOR Ama Gonzalez MD LAB - CHEMISTRY ORDERABLES [address] [address], [place] [phone] * MAGNESIUM BLOOD (06/08/2022 2:13 AM WINDING RACK OPERATOR) Pathologist [facility] Magnesium 1.7 1.6 - 2.6 mg/dL 06/08/2022 3:12 AM [facility] Blood BLOOD SPECIMEN / Unknown Lab Venipuncture / Unknown 06/08/2022 2:13 AM WINDING RACK OPERATOR 06/08/2022 2:44 AM WINDING RACK OPERATOR Ama Gonzalez MD LAB - CHEMISTRY ORDERABLES [facility] [address] [place] [address], [facility] [phone] * (ABNORMAL) CBC W/O DIFFERENTIAL (06/08/2022 2:13 AM WINDING RACK OPERATOR) [facility] WBC 9.2 3.5 - 10.5 10? 3 /uL 06/08/2022 2:54 AM [facility] RBC 2.64(L) 3.80 - 5.20 10? 6 /uL 06/08/2022 2:54 AM [facility] Hemoglobin 7.9(L) 12.0 - 15.6 g/dL 06/08/2022 2:54 AM [facility] Hematocrit 23.9(L) 35.0 - 45.0 % 06/08/2022 2:54 AM [facility] MCV 90.5 80.7 - 98.3 fL 06/08/2022 2:54 AM [facility] MCH 29.9 26.7 - 34.0 pg 06/08/2022 2:54 AM [facility] MCHC 33.1 30.8 - 35.9 g/dL 06/08/2022 2:54 AM [facility] RDW-SD 44.6 36.0 - 50.0 fL 06/08/2022 2:54 AM [facility] RDW-CV 13.4 11.2 - 14.8 % 06/08/2022 2:54 AM [facility] Platelet Count 287 150 - 400 10? 3 /uL 06/08/2022 2:54 AM [facility] MPV 10.1 9.4 - 12.9 fL 06/08/2022 2:54 AM [facility] nRBC Absolute 0.00 0 10? 3 /uL 06/08/2022 2:54 AM [facility] nRBC Auto 0.0 0 /100 WBC 06/08/2022 2:54 AM [facility] Blood BLOOD SPECIMEN / Unknown Lab Venipuncture / Unknown 06/08/2022 2:13 AM WINDING RACK OPERATOR 06/08/2022 2:43 AM WINDING RACK OPERATOR Deon Taylor MD LAB - HEMATOLOGY ORD ERABLES [facility] [address] [place] [address], [facility] [phone] * (ABNORMAL) BASIC METABOLIC PANEL (CALCIUM TOTAL) (06/08/2022 2:13 AM [facility]) BUN 25 7 - 26 mg/dL 06/08/2022 3:12 AM [facility] Creatinine 1.30(H) 0.56 - 0.96 mg/dL 06/08/2022 3:12 AM [facility] Sodium 132(L) 136 - 145 mmol/L 06/08/2022 3:12 AM [facility] Potassium 5.4(H) 3.5 - 4.5 mmol/L 06/08/2022 3:12 AM [facility] Chloride 97(L) 98 - 107 mmol/L 06/08/2022 3:12 AM [facility] CO2 24 22 - 29 mmol/L 06/08/2022 3:12 AM [facility] Glucose 97 70 - 115 mg/dL 06/08/2022 3:12 AM [facility] Calcium 8.4 8.4 - 10.2 mg/dL 06/08/2022 3:12 AM [facility] Anion Gap 16 8 - 18 06/08/2022 3:12 AM [facility] BUN/Creatinine Ratio 19 7 - 23 06/08/2022 3:12 AM [facility] Osmolality Calculated 278 270 - 300 mOsm/kg 06/08/2022 3:12 AM [facility] eGFR by CKD-EPI 44(L) >=90 mL/min/1.7 3 m2 06/08/2022 3:12 AM WINDING RACK OPERATOR [facility] Blood BLOOD SPECIMEN / Unknown Lab Venipuncture / Unknown 06/08/2022 2:13 AM WINDING RACK OPERATOR 06/08/2022 2:44 AM WINDING RACK OPERATOR Deon Taylor MD LAB - CHEMISTRY CHELO QUIGLEY [address] [address], [place] [phone] * GLUCOSE - POINT OF CARE (06/07/2022 11:25 PM WINDING RACK OPERATOR) Glucose WB/POC 94 70 - 115 mg/dL 06/08/2022 4:12 PM WINDING RACK OPERATOR [facility] Specimen Type Cap Fingerstick 2022 4:12 PM WINDING RACK OPERATOR [facility] Blood BLOOD SPECIMEN / Unknown 06/07/2022 11:25 PM WINDING RACK OPERATOR 06/08/2022 4:12 PM WINDING RACK OPERATOR Ama Gonzalez MD LAB - POINT OF C ARE ORDERABLES [address] [address], [place] [phone] * GLUCOSE - POINT OF CARE (06/07/2022 9:31 PM WINDING RACK OPERATOR) Glucose WB/POC 82 70 - 115 mg/dL 06/07/2022 9:36 PM WINDING RACK OPERATOR [facility] Specimen Type Cap Fingerstick 2022 9:36 PM WINDING RACK OPERATOR [facility] Blood BLOOD SPECIMEN / Unknown 06/07/2022 9:31 PM WINDING RACK OPERATOR 06/07/2022 9:36 PM WINDING RACK OPERATOR Ama Gonzalez MD LAB - POINT OF C ARE ORDERABLES [address] [address], [place] [phone] * GLUCOSE - POINT OF CARE (06/07/2022 5:52 PM WINDING RACK OPERATOR) Glucose WB/POC 103 70 - 115 mg/dL 06/07/2022 5:52 PM WINDING RACK OPERATOR [facility] Specimen Type Arterial 06/07/2022 5:52 PM WINDING RACK OPERATOR [facility] Blood BLOOD SPECIMEN / Unknown 06/07/2022 5:52 PM WINDING RACK OPERATOR 06/07/2022 5:52 PM WINDING RACK OPERATOR Ama Gonzalez MD LAB - POINT OF ARE ORDERABLES Performing Organization Address City/[facility]/ZIP Co de Phone Number [address] [address], [place] [phone] * (ABNORMAL) GLUCOSE - POINT OF CARE (06/07/2022 12:00 PM WINDING RACK OPERATOR) Glucose WB/POC 153(H) 70 - 115 mg/dL 06/07/2022 12:04 PM WINDING RACK OPERATOR [facility] Specimen Type Cap Fingerstick 2022 12:04 PM WINDING RACK OPERATOR [facility] Blood BLOOD SPECIMEN / Unknown 06/07/2022 12:00 PM WINDING RACK OPERATOR 06/07/2022 12:04 PM WINDING RACK OPERATOR Ama Gonzalez MD LAB - POINT OF ARE ORDERABLES Performing Organization Address City/[facility]/ZIP Co de Phone Number [address] [address], [place] [phone] * GLUCOSE - POINT OF CARE (06/07/2022 8:21 AM WINDING RACK OPERATOR) Glucose WB/POC 91 70 - 115 mg/dL 06/07/2022 8:24 AM WINDING RACK OPERATOR [facility] Specimen Type Cap Fingerstick 2022 8:24 AM WINDING RACK OPERATOR [facility] Blood BLOOD SPECIMEN / Unknown 06/07/2022 8:21 AM WINDING RACK OPERATOR 06/07/2022 8:24 AM WINDING RACK OPERATOR Ama Gonzalez MD LAB - POINT OF C ARE ORDERABLES [address] [address], [place] [phone] * (ABNORMAL) PHOSPHORUS BLOOD (06/07/2022 2:24 AM WINDING RACK OPERATOR) Pathologist [facility] Phosphorus 2.7(L) 2.9 - 5.1 mg/dL 06/07/2022 3:34 AM WINDING RACK OPERATOR [facility] Blood BLOOD SPECIMEN / Unknown Lab Venipuncture / Unknown 06/07/2022 2:24 AM WINDING RACK OPERATOR 06/07/2022 3:01 AM WINDING RACK OPERATOR Ama Gonzalez MD LAB - CHEMISTRY ORDERABLES Performing Organization Address City/[facility]/ZIP Co de Phone Number [address] [address], [place] [phone] * MAGNESIUM BLOOD (06/07/2022 2:24 AM WINDING RACK OPERATOR) [facility] Magnesium 2.1 1.6 - 2.6 mg/dL 06/07/2022 3:34 AM WINDING RACK OPERATOR [facility] Blood BLOOD SPECIMEN / Unknown Lab Venipuncture / Unknown 06/07/2022 2:24 AM WINDING RACK OPERATOR 06/07/2022 3:01 AM WINDING RACK OPERATOR Ama Gonzalez MD LAB - CHEMISTRY ORDERABLES Performing Organization Address City/[facility]/ZIP Co de Phone Number [address] [address], [place] [phone] * (ABNORMAL) CBC W/O DIFFERENTIAL (06/07/2022 2:24 AM WINDING RACK OPERATOR) Pathologist [facility] WBC 11.8(H) 3.5 - 10.5 10? 3 /uL 06/07/2022 3:19 AM [facility] RBC 2.85(L) 3.80 - 5.20 10? 6 /uL 06/07/2022 3:19 AM [facility] Hemoglobin 8.5(L) 12.0 - 15.6 g/dL 06/07/2022 3:19 AM [facility] Hematocrit 25.2(L) 35.0 - 45.0 % 06/07/2022 3:19 AM [facility] MCV 88.4 80.7 - 98.3 fL 06/07/2022 3:19 AM [facility] MCH 29.8 26.7 - 34.0 pg 06/07/2022 3:19 AM [facility] MCHC 33.7 30.8 - 35.9 g/dL 06/07/2022 3:19 AM [facility] RDW-SD 43.3 36.0 - 50.0 fL 06/07/2022 3:19 AM [facility] RDW-CV 13.2 11.2 - 14.8 % 06/07/2022 3:19 AM [facility] Platelet Count 291 150 - 400 10? 3 /uL 06/07/2022 3:19 AM [facility] MPV 10.0 9.4 - 12.9 fL 06/07/2022 3:19 AM [facility] nRBC Absolute 0.00 0 10? 3 /uL 06/07/2022 3:19 AM [facility] nRBC Auto 0.0 0 /100 WBC 06/07/2022 3:19 AM [facility] Blood BLOOD SPECIMEN / Unknown Lab Venipuncture / Unknown 06/07/2022 2:24 AM [employer] 06/07/2022 3:01 AM [facility] Deon Taylor MD LAB - HEMATOLOGY ORD ERABLES Performing Organization Address [facility] Co de Phone Number [address] [id number], [facility] [phone] * (ABNORMAL) BASIC METABOLIC PANEL (CALCIUM TOTAL) (06/07/2022 2:24 AM [employer]) BUN 25 7 - 26 mg/dL 06/07/2022 3:34 AM [facility] Creatinine 1.26(H) 0.56 - 0.96 mg/dL 06/07/2022 3:34 AM [facility] Sodium 130(L) 136 - 145 mmol/L 06/07/2022 3:34 AM [facility] Potassium 5.3(H) 3.5 - 4.5 mmol/L 06/07/2022 3:34 AM [facility] Chloride 102 98 - 107 mmol/L 06/07/2022 3:34 AM [facility] CO2 24 22 - 29 mmol/L 06/07/2022 3:34 AM [facility] Glucose 121(H) 70 - 115 mg/dL 06/07/2022 3:34 AM [facility] Calcium 8.8 8.4 - 10.2 mg/dL 06/07/2022 3:34 AM [facility] Anion Gap 9 8 - 18 06/07/2022 3:34 AM [facility] BUN/Creatinine Ratio 20 7 - 23 06/07/2022 3:34 AM [facility] Osmolality Calculated 276 270 - 300 mOsm/kg 06/07/2022 3:34 AM [facility] eGFR by CKD-EPI 45(L) >=90 mL/min/1.7 3 m2 06/07/2022 3:34 AM [facility] Blood BLOOD SPECIMEN / Unknown Lab Venipuncture / Unknown 06/07/2022 2:24 AM WINDING RACK OPERATOR 06/07/2022 3:01 AM WINDING RACK OPERATOR Deon Taylor MD LAB - CHEMISTRY CHELO QUIGLEY [facility] [address] [place] [address], [facility] [phone] * (ABNORMAL) GLUCOSE - POINT OF CARE (06/06/2022 8:38 PM WINDING RACK OPERATOR) Glucose WB/POC 137(H) 70 - 115 mg/dL 06/06/2022 8:39 PM [facility] Specimen Type Cap Fingerstick 2022 8:39 PM [facility] Blood BLOOD SPECIMEN / Unknown 06/06/2022 8:38 PM WINDING RACK OPERATOR 06/06/2022 8:39 PM WINDING RACK OPERATOR Ama Gonzalez MD LAB - POINT OF C ARE ORDERABLES [address] [address], [place] [phone] * (ABNORMAL) GLUCOSE - POINT OF CARE (06/06/2022 5:02 PM WINDING RACK OPERATOR) Glucose WB/POC 241(H) 70 - 115 mg/dL 06/06/2022 5:03 PM WINDING RACK OPERATOR [facility] Specimen Type Arterial 06/06/2022 5:03 PM WINDING RACK OPERATOR [facility] Blood BLOOD SPECIMEN / Unknown 06/06/2022 5:02 PM WINDING RACK OPERATOR 06/06/2022 5:03 PM WINDING RACK OPERATOR Ama Gonzalez MD LAB - POINT [facility] ARE ORDERABLES Performing Organization Address City/[facility]/ZIP Co de Phone Number [address] [address], [place] [phone] * (ABNORMAL) GLUCOSE - POINT OF CARE (06/06/2022 12:26 PM WINDING RACK OPERATOR) Glucose WB/POC 165(H) 70 - 115 mg/dL 06/06/2022 12:27 PM WINDING RACK OPERATOR [facility] Specimen Type Arterial 06/06/2022 12:27 PM WINDING RACK OPERATOR [facility] Blood BLOOD SPECIMEN / Unknown 06/06/2022 12:26 PM WINDING RACK OPERATOR 06/06/2022 12:27 PM WINDING RACK OPERATOR Ama Gonzalez MD LAB - POINT [facility] ARE ORDERABLES [address] [address], [place] [phone] * TRANSFUSE RED BLOOD CELL LEUKOREDUCED UNIT(S) (06/06/2022 12:20 PM WINDING RACK OPERATOR) Ama Gonzalez MD NURSING - BLOOD PROD TRANSFUSION * TRANSFUSE RED BLOOD CELL LEUKOREDUCED UNIT(S), 1 Units (06/06/2022 12:20 PM WINDING RACK OPERATOR) Ama Gonzalez MD NURSING - BLOOD PROD TRANSFUSION * PREPARE (CROSSMATCH) RBC UNIT(S), 1 Units (06/06/2022 9:36 AM WINDING RACK OPERATOR) Unit Description AS1 LR PRBC [facility] Unit ABO A [facility] Unit Rh POS [facility] Product Number [id number] [facility] Unit Donor # [id number] [facility] Unit Status transfused [facility] B[facility] Product Code [id number] [facility] Blood Type Barcode 6200 [facility] Expiration Date [id number] S BLOOD BANK LAB Blood Bank BLOOD SPECIMEN / Unknown 06/04/2022 6:44 AM WINDING RACK OPERATOR Ama Gonzalez MD LAB - BLOOD BANK ORDERABLES [facility] [address] [place] [address], [place] [phone] * (ABNORMAL) GLUCOSE - POINT OF CARE (06/06/2022 8:00 AM WINDING RACK OPERATOR) Glucose WB/POC 125(H) 70 - 115 mg/dL 06/06/2022 8:01 AM WINDING RACK OPERATOR [facility] Specimen Type Arterial 06/06/2022 8:01 AM WINDING RACK OPERATOR [facility] Blood BLOOD SPECIMEN / Unknown 06/06/2022 8:00 AM WINDING RACK OPERATOR 06/06/2022 8:01 AM WINDING RACK OPERATOR Ama Gonzalez MD LAB - POINT OF C ARE ORDERABLES [facility] [address] [place] [address], [place] [phone] * PHOSPHORUS BLOOD (06/06/2022 3:07 AM WINDING RACK OPERATOR) Phosphorus 3.2 2.9 - 5.1 mg/dL 06/06/2022 4:03 AM WINDING RACK OPERATOR [facility] Blood BLOOD SPECIMEN / Unknown Lab Venipuncture / Unknown 06/06/2022 3:07 AM WINDING RACK OPERATOR 06/06/2022 3:29 AM WINDING RACK OPERATOR Ama Gonzalez MD LAB - CHEMISTRY ORDERABLES [address] [address], [facility] [phone] * MAGNESIUM BLOOD (06/06/2022 3:07 AM WINDING RACK OPERATOR) Magnesium 1.6 1.6 - 2.6 mg/dL 06/06/2022 4:03 AM [facility] Blood BLOOD SPECIMEN / Unknown Lab Venipuncture / Unknown 06/06/2022 3:07 AM WINDING RACK OPERATOR 06/06/2022 3:29 AM WINDING RACK OPERATOR Ama Gonzalez MD LAB - CHEMISTRY ORDERABLES [address] [address], [facility] [phone] * (ABNORMAL) CBC W/O DIFFERENTIAL (06/06/2022 3:07 AM WINDING RACK OPERATOR) WBC 8.5 3.5 - 10.5 10? 3 /uL 06/06/2022 3:32 AM [facility] RBC 2.26(L) 3.80 - 5.20 10? 6 /uL 06/06/2022 3:32 AM [facility] Hemoglobin 6.7(L) 12.0 - 15.6 g/dL 06/06/2022 3:32 AM [facility] Hematocrit 20.8(L) 35.0 - 45.0 % 06/06/2022 3:32 AM [facility] MCV 92.0 80.7 - 98.3 fL 06/06/2022 3:32 AM [facility] MCH 29.6 26.7 - 34.0 pg 06/06/2022 3:32 AM [facility] MCHC 32.2 30.8 - 35.9 g/dL 06/06/2022 3:32 AM [facility] RDW-SD 43.7 36.0 - 50.0 fL 06/06/2022 3:32 AM [facility] RDW-CV 13.2 11.2 - 14.8 % 06/06/2022 3:32 AM [facility] Platelet Count 254 150 - 400 10? 3 /uL 06/06/2022 3:32 AM [facility] MPV 9.7 9.4 - 12.9 fL 06/06/2022 3:32 AM [facility] nRBC Absolute 0.00 0 10? 3 /uL 06/06/2022 3:32 AM [facility] nRBC Auto 0.0 0 /100 WBC 06/06/2022 3:32 AM [facility] Blood BLOOD SPECIMEN / Unknown Lab Venipuncture / Unknown 06/06/2022 3:07 AM WINDING RACK OPERATOR 06/06/2022 3:29 AM WINDING RACK OPERATOR Deon Taylor MD LAB - HEMATOLOGY ORD ERABLES Performing Organization Address [facility] Co de Phone Number [address] [address] [phone] * (ABNORMAL) BASIC METABOLIC PANEL (CALCIUM TOTAL) (06/06/2022 3:07 AM [facility]) BUN 25 7 - 26 mg/dL 06/06/2022 4:03 AM [facility] Creatinine 1.34(H) 0.56 - 0.96 mg/dL 06/06/2022 4:03 AM [facility] Sodium 129(L) 136 - 145 mmol/L 06/06/2022 4:03 AM [facility] Potassium 4.6(H) 3.5 - 4.5 mmol/L 06/06/2022 4:03 AM [facility] Chloride 100 98 - 107 mmol/L 06/06/2022 4:03 AM [facility] CO2 22 22 - 29 mmol/L 06/06/2022 4:03 AM [facility] Glucose 112 70 - 115 mg/dL 06/06/2022 4:03 AM [facility] Calcium 8.9 8.4 - 10.2 mg/dL 06/06/2022 4:03 AM [facility] Anion Gap 12 8 - 18 06/06/2022 4:03 AM [facility] BUN/Creatinine Ratio 19 7 - 23 06/06/2022 4:03 AM [facility] Osmolality Calculated 273 270 - 300 mOsm/kg 06/06/2022 4:03 AM [facility] eGFR by CKD-EPI 42(L) >=90 mL/min/1.7 3 m2 06/06/2022 4:03 AM [facility] Blood BLOOD SPECIMEN / Unknown Lab Venipuncture / Unknown 06/06/2022 3:07 AM WINDING RACK OPERATOR 06/06/2022 3:29 AM WINDING RACK OPERATOR Deon Taylor MD LAB - CHEMISTRY CHELO QUIGLEY [facility] [address] [place] [address], [place] [phone] * FOLATE (06/06/2022 3:07 AM WINDING RACK OPERATOR) Folate 9.4 7.0 - 31.4 ng/mL 06/06/2022 4:35 AM [facility] Blood BLOOD SPECIMEN / Unknown Lab Venipuncture / Unknown 06/06/2022 3:07 AM WINDING RACK OPERATOR 06/06/2022 3:29 AM WINDING RACK OPERATOR Ama Gonzalez MD LAB - CHEMISTRY ORDERABLES [facility] [address] [place] [address], [place] [phone] * VITAMIN B12 (06/06/2022 3:07 AM WINDING RACK OPERATOR) Vitamin B12 382 213 - 816 pg/mL 06/06/2022 4:35 AM [facility] Blood BLOOD SPECIMEN / Unknown Lab Venipuncture / Unknown 06/06/2022 3:07 AM WINDING RACK OPERATOR 06/06/2022 3:29 AM WINDING RACK OPERATOR Ama Gonzalez MD LAB - CHEMISTRY ORDERABLES [address] [address], [place] [phone] * FERRITIN (06/06/2022 3:07 AM WINDING RACK OPERATOR) [facility] Ferritin 94 13 - 204 ng/mL 06/06/2022 4:10 AM [facility] Blood BLOOD SPECIMEN / Unknown Lab Venipuncture / Unknown 06/06/2022 3:07 AM WINDING RACK OPERATOR 06/06/2022 3:25 AM WINDING RACK OPERATOR Ama Gonzalez MD LAB - CHEMISTRY ORDERABLES [address] [address], [place] [phone] * (ABNORMAL) IRON + TRANSFERRIN PANEL (06/06/2022 3:07 AM WINDING RACK OPERATOR) [facility] Iron 20(L) 40 - 150 ug/dL 06/06/2022 3:53 AM [facility] Transferrin 162(L) 174 - 382 mg/dL 06/06/2022 3:53 AM [facility] Transferrin Saturation % 10(L) 16 - 50 % 06/06/2022 3:53 AM [facility] TIBC Calculated 203(L) 240 - 450 ug/dL 06/06/2022 3:53 AM [facility] Blood BLOOD SPECIMEN / Unknown Lab Venipuncture / Unknown 06/06/2022 3:07 AM WINDING RACK OPERATOR 06/06/2022 3:25 AM WINDING RACK OPERATOR Ama oGnzalez MD LAB - CHEMISTRY ORDERABLES [address] [address], [place] [phone] * HEMOGLOBIN A1C (06/06/2022 3:07 AM WINDING RACK OPERATOR) [facility] Hemoglobin A1c 5.3 <=5.6 % 06/06/2022 3:38 PM [facility] Estimated Average Glucose 105 mg/dL 06/06/2022 3:38 PM [facility] Comment: HbA1c Interpretation: Normal : < 5.7% Pre-diabetes: 5.7-6.4% Diabetes: Equal to or greater than 6.5% Test results diagnostic of diabetes should be repeated for confirmation. Treatment target values recommended by ADA and other clinical organizations should be used to evaluate metabolic control in patients. Reference: [place] [employer], Standards of Care in Diabetes -2020 In patients 70 years and older consider HbA1c target range of 7.0-7.5% (Reference: Oswaldo Liz et al. JAMDA. 2012) The Sebia assay for the measurement of HbA1c is a National Glycohemoglobin Standardization Program (NGSP) certified method. Blood BLOOD SPECIMEN / Unknown Lab Venipuncture / Unknown 06/06/2022 3:07 AM WINDING RACK OPERATOR 06/06/2022 3:28 AM WINDING RACK OPERATOR Ama Gonzalez MD LAB - CHEMISTRY ORDERABLES [address] [address], [facility] [phone] * PTH INTACT W/O CALCIUM (06/06/2022 3:07 AM WINDING RACK OPERATOR) PTH Intact 72.1 8.0 - 77.0 pg/mL 06/06/2022 4:04 AM [facility] Blood BLOOD SPECIMEN / Unknown Lab Venipuncture / Unknown 06/06/2022 3:07 AM WINDING RACK OPERATOR 06/06/2022 3:32 AM WINDING RACK OPERATOR Deon Taylor MD LAB - CHEMISTRY CHELO QUIGLEY [address] [address], [facility] [phone] * VITAMIN D 25-HYDROXY (06/06/2022 3:07 AM WINDING RACK OPERATOR) Vitamin D, 25 Hydroxy 53.0 30.0 - 80.0 ng/mL 06/06/2022 4:35 AM [facility] Comment: The recommendations for 25-Hydroxy Vitamin [...] Lab Venipuncture / Unknown 06/06/2022 3:07 AM WINDING RACK OPERATOR 06/06/2022 3:29 AM WINDING RACK OPERATOR Deon Taylor MD LAB - CHEMISTRY CHELO QUIGLEY Performing Organization Address [facility] Co de Phone Number [address] [address], [facility] [phone] * (ABNORMAL) GLUCOSE - POINT OF CARE (06/05/2022 8:51 PM WINDING RACK OPERATOR) Pathologist [facility] Glucose WB/POC 152(H) 70 - 115 mg/dL 06/05/2022 8:52 PM WINDING RACK OPERATOR [facility] Specimen Type Cap Fingerstick 2022 8:52 PM WINDING RACK OPERATOR [facility] Blood BLOOD SPECIMEN / Unknown 06/05/2022 8:51 PM WINDING RACK OPERATOR 06/05/2022 8:52 PM WINDING RACK OPERATOR Ama Gonzalez MD LAB - POINT OF C ARE ORDERABLES Performing Organization Address [facility] Co de Phone Number [address] [address], [place] [phone] * (ABNORMAL) GLUCOSE - POINT OF CARE (06/05/2022 5:59 PM WINDING RACK OPERATOR) Glucose WB/POC 185(H) 70 - 115 mg/dL 06/05/2022 6:02 PM WINDING RACK OPERATOR [facility] Specimen Type Cap Fingerstick 2022 6:02 PM WINDING RACK OPERATOR [facility] Blood BLOOD SPECIMEN / Unknown 06/05/2022 5:59 PM WINDING RACK OPERATOR 06/05/2022 6:02 PM WINDING RACK OPERATOR Ama Gonzalez MD LAB - POINT OF ARE ORDERABLES [address] [address], [place] [phone] * (ABNORMAL) GLUCOSE - POINT OF CARE (06/05/2022 4:27 PM WINDING RACK OPERATOR) Glucose WB/POC 208(H) 70 - 115 mg/dL 06/05/2022 4:28 PM WINDING RACK OPERATOR [facility] Specimen Type Arterial 06/05/2022 4:28 PM WINDING RACK OPERATOR [facility] Blood BLOOD SPECIMEN / Unknown 06/05/2022 4:27 PM WINDING RACK OPERATOR 06/05/2022 4:28 PM WINDING RACK OPERATOR Ama Gonzalez MD LAB - POINT OF ARE ORDERABLES [facility] [address] [place] [address], [place] [phone] * (ABNORMAL) GLUCOSE - POINT OF CARE (06/05/2022 12:37 PM WINDING RACK OPERATOR) Glucose WB/POC 163(H) 70 - 115 mg/dL 06/05/2022 12:37 PM WINDING RACK OPERATOR [facility] Specimen Type Arterial 06/05/2022 12:37 PM WINDING RACK OPERATOR [facility] Blood BLOOD SPECIMEN / Unknown 06/05/2022 12:37 PM WINDING RACK OPERATOR 06/05/2022 12:37 PM WINDING RACK OPERATOR Ama Gonzalez MD LAB - POINT OF C ARE ORDERABLES [facility] [address] [place] [address], [facility] [phone] * (ABNORMAL) CBC W/O DIFFERENTIAL (06/05/2022 12:32 PM WINDING RACK OPERATOR) WBC 10.0 3.5 - 10.5 10? 3 /uL 06/05/2022 12:45 PM [facility] RBC 2.31(L) 3.80 - 5.20 10? 6 /uL 06/05/2022 12:45 PM [facility] Hemoglobin 7.0(L) 12.0 - 15.6 g/dL 06/05/2022 12:45 PM [facility] Hematocrit 20.9(L) 35.0 - 45.0 % 06/05/2022 12:45 PM [facility] MCV 90.5 80.7 - 98.3 fL 06/05/2022 12:45 PM [facility] MCH 30.3 26.7 - 34.0 pg 06/05/2022 12:45 PM [facility] MCHC 33.5 30.8 - 35.9 g/dL 06/05/2022 12:45 PM [facility] RDW-SD 43.0 36.0 - 50.0 fL 06/05/2022 12:45 PM [facility] RDW-CV 13.2 11.2 - 14.8 % 06/05/2022 12:45 PM [facility] Platelet Count 259 150 - 400 10? 3 /uL 06/05/2022 12:45 PM [facility] MPV 9.5 9.4 - 12.9 fL 06/05/2022 12:45 PM [facility] nRBC Absolute 0.00 0 10? 3 /uL 06/05/2022 12:45 PM [facility] nRBC Auto 0.0 0 /100 WBC 06/05/2022 12:45 PM [facility] Blood BLOOD SPECIMEN / Unknown Lab Venipuncture / Unknown 06/05/2022 12:32 PM WINDING RACK OPERATOR 06/05/2022 12:37 PM WINDING RACK OPERATOR Ama Gonzalez MD LAB - HEMATOLOGY ORDERABLES [facility] [address] [place] [address], [facility] [phone] * XR CERVICAL SPINE 2 OR 3VW (06/05/2022 9:35 AM WINDING RACK OPERATOR) Anatomical Region Laterality Modality Spine Radiographic Vivian ging 06/05/2022 11:4 5 AM WINDING RACK OPERATOR Impressions 06/05/2022 3:11 PM WINDING RACK OPERATOR IMPRESSION: Interval posterior spinal fusion of C4-T2. Poor delineation of the spine in this region in lateral projection. Report drafted by Jon Arias MD (president [employer]) Kamila Narvaez MD have personally reviewed and interpreted this examination/study. > Interpreting Provider: Kamila Barber MD on 06/05/2022 3:11 PM Narrative 06/05/2022 3:11 PM WINDING RACK OPERATOR PROCEDURE: ??XR CERVICAL SPINE 2 OR 3VW, DATE/TIME OF EXAM: ??06/05/2022 9:37 AM, LOCATION ??[facility] INDICATION: M50.30: Degeneration of cervical intervertebral disc [...] 3VW, DATE/TIME OF EXAM: 39:37 AM, LOCATION [facility] INDICATION: M50.30: Degeneration of cervical intervertebral disc [...] projection. Report drafted by Jon Arias MD (president [employer]) I, Kamila Barber MD have personally reviewed and interpreted this examination/study. > Interpreting Provider: Kamila Barber MD on 06/05/2022 3:11 PM Lyla Blackwell DIRECTOR PRODUCT SAFETY-DIRECTOR PATIENT DIAGNOSTIC IMAG ING ORDERABLES * GLUCOSE - POINT OF CARE (06/05/2022 8:39 AM WINDING RACK OPERATOR) Glucose WB/POC 109 70 - 115 mg/dL 06/05/2022 8:40 AM WINDING RACK OPERATOR [facility] Specimen Type Arterial 06/05/2022 8:40 AM WINDING RACK OPERATOR [facility] Blood BLOOD SPECIMEN / Unknown 06/05/2022 8:39 AM WINDING RACK OPERATOR 06/05/2022 8:40 AM WINDING RACK OPERATOR Deon Taylor MD LAB - POINT OF CARE ORDERABLES [facility] [address] [place] [address], [facility] [phone] * (ABNORMAL) CBC W/O DIFFERENTIAL (06/05/2022 4:58 AM WINDING RACK OPERATOR) WBC 10.4 3.5 - 10.5 10? 3 /uL 06/05/2022 5:27 AM [facility] RBC 2.41(L) 3.80 - 5.20 10? 6 /uL 06/05/2022 5:27 AM [facility] Hemoglobin 7.1(L) 12.0 - 15.6 g/dL 06/05/2022 5:27 AM [facility] Hematocrit 22.1(L) 35.0 - 45.0 % 06/05/2022 5:27 AM [facility] MCV 91.7 80.7 - 98.3 fL 06/05/2022 5:27 AM [facility] MCH 29.5 26.7 - 34.0 pg 06/05/2022 5:27 AM [facility] MCHC 32.1 30.8 - 35.9 g/dL 06/05/2022 5:27 AM [facility] RDW-SD 43.3 36.0 - 50.0 fL 06/05/2022 5:27 AM [facility] RDW-CV 13.1 11.2 - 14.8 % 06/05/2022 5:27 AM [facility] Platelet Count 273 150 - 400 10? 3 /uL 06/05/2022 5:27 AM [facility] MPV 9.8 9.4 - 12.9 fL 06/05/2022 5:27 AM [facility] nRBC Absolute 0.00 0 10? 3 /uL 06/05/2022 5:27 AM [facility] nRBC Auto 0.0 0 /100 WBC 06/05/2022 5:27 AM [facility] Blood BLOOD SPECIMEN / Unknown Lab Venipuncture / Unknown 06/05/2022 4:58 AM WINDING RACK OPERATOR 06/05/2022 5:16 AM [facility] Deon Taylor MD LAB - HEMATOLOGY ORD ERABLES [facility] [address] [place] [address], [facility] [phone] * (ABNORMAL) BASIC METABOLIC PANEL (CALCIUM TOTAL) (06/05/2022 4:58 AM WINDING RACK OPERATOR) BUN 27(H) 7 - 26 mg/dL 06/05/2022 5:43 AM [facility] Creatinine 1.40(H) 0.56 - 0.96 mg/dL 06/05/2022 5:43 AM [facility] Sodium 132(L) 136 - 145 mmol/L 06/05/2022 5:43 AM [facility] Potassium 5.2(H) 3.5 - 4.5 mmol/L 06/05/2022 5:43 AM [facility] Chloride 103 98 - 107 mmol/L 06/05/2022 5:43 AM [facility] CO2 19(L) 22 - 29 mmol/L 06/05/2022 5:43 AM [facility] Glucose 107 70 - 115 mg/dL 06/05/2022 5:43 AM [facility] Calcium 8.5 8.4 - 10.2 mg/dL 06/05/2022 5:43 AM [facility] Anion Gap 15 8 - 18 06/05/2022 5:43 AM [facility] BUN/Creatinine Ratio 19 7 - 23 06/05/2022 5:43 AM [facility] Osmolality Calculated 280 270 - 300 mOsm/kg 06/05/2022 5:43 AM [facility] eGFR by CKD-EPI 40(L) >=90 mL/min/1.7 3 m2 06/05/2022 5:43 AM [facility] Blood BLOOD SPECIMEN / Unknown Lab Venipuncture / Unknown 06/05/2022 4:58 AM W[employer]ING RACK OPERATOR 06/05/2022 5:17 AM [facility] Deon Taylor MD LAB - CHEMISTRY CHELO QUIGLEY [facility] Organization Address City/State/ZIP Co de Phone Number [facility] [address] [place] [address], [facility] [phone] * (ABNORMAL) GLUCOSE - POINT OF CARE (06/04/2022 8:20 PM WINDING RACK OPERATOR) Pathologist [facility] Glucose WB/POC 120(H) 70 - 115 mg/dL 06/04/2022 8:21 PM WINDING RACK OPERATOR [facility] Specimen Type Cap Fingerstick 2022 8:21 PM WINDING RACK OPERATOR [facility] Blood BLOOD SPECIMEN / Unknown 06/04/2022 8:20 PM WINDING RACK OPERATOR 06/04/2022 8:21 PM WINDING RACK OPERATOR Deon Taylor MD LAB - POINT OF CARE ORDERABLES Performing Organization Address City/[facility]/ZIP Co de Phone Number [facility] [address] [place] [address], [place] [phone] * GLUCOSE - POINT OF CARE (06/04/2022 11:51 AM WINDING RACK OPERATOR) Glucose WB/POC 111 70 - 115 mg/dL 06/04/2022 11:56 AM WINDING RACK OPERATOR [facility] Specimen Type Cap Fingerstick 2022 11:56 AM WINDING RACK OPERATOR [facility] Blood BLOOD SPECIMEN / Unknown 06/04/2022 11:51 AM WINDING RACK OPERATOR 06/04/2022 11:55 AM WINDING RACK OPERATOR Deon Taylor MD LAB - POINT OF CARE ORDERABLES Performing Organization Address [facility]/ZIP Co de Phone Number [address] [address], [place] [phone] * [place] JOSÉ LUIS SURGERY (06/04/2022 11:30 AM WINDING RACK OPERATOR) Narrative [facility] RADIOLOGY - 06/04/2022 12:52 PM WINDING RACK OPERATOR Fluoroscopy was used for this exam in the OR. Please see the Operative report. Deon Taylor MD FLUOROSCOPY ORDERABL ES Performing Organization Address City/[facility]/ZIP Co de Phone Number [facility] * (ABNORMAL) GLUCOSE - POINT OF CARE (06/04/2022 6:39 AM WINDING RACK OPERATOR) Glucose WB/POC 130(H) 70 - 115 mg/dL 06/05/2022 12:40 PM WINDING RACK OPERATOR [facility] Specimen Type Venous 06/05/2022 12:40 PM WINDING RACK OPERATOR [facility] Blood BLOOD SPECIMEN / Unknown 06/04/2022 6:39 AM WINDING RACK OPERATOR 06/05/2022 12:40 PM WINDING RACK OPERATOR Deon Taylor MD LAB - POINT OF CARE ORDERABLES [facility] [address] [place] [address], [place] [phone] * TYPE + SCREEN PANEL (06/04/2022 6:39 AM WINDING RACK OPERATOR) Antibody Screen NEG 7:24 AM WINDING RACK OPERATOR [facility] LAB ABO Rh A POS 06/04/2022 7:24 AM WINDING RACK OPERATOR [facility] Blood Bank BLOOD SPECIMEN / Unknown Venipuncture / Unknown 06/04/2022 6:39 AM WINDING RACK OPERATOR 06/04/2022 6:44 AM WINDING RACK OPERATOR Provider Unknown LAB - BLOOD BANK ORD ERABLES Performing Organization Address City/[facility]/ZIP Co de Phone Number [facility] [address] [place] [address], [place] [phone] documented in this encounter Visit Diagnoses Diagnosis [...] Post-op $ New Bag/Syringe 06/05/2022 7:16 AM WINDING RACK OPERATOR 75 mL/hr $ New Bag/Syringe 06/04/2022 6:13 PM WINDING RACK OPERATOR 75 mL/ hr 0.9% NaCl injection 1-10 [...] 8 hours. $ Given 06/08/2022 8:08 PM WINDING RACK OPERATOR 3 mL $ Given 06/08/2022 2:36 PM WINDING RACK OPERATOR 3 mL $ Given 06/08/2022 5:08 AM WINDING RACK OPERATOR 3 mL acetaminophen (Tylenol) tablet 1,000 mg [...] the MAR. $ Given 06/08/2022 8:07 PM WINDING RACK OPERATOR 1,000 mg $ Given 06/08/2022 2:36 PM WINDING RACK OPERATOR 1,000 mg $ Given 06/08/2022 9:07 AM WINDING RACK OPERATOR 1,000 mg acetaminophen (Tylenol) tablet 650 mg [...] MAR., Post-op $ Given 06/05/2022 8:34 AM WINDING RACK OPERATOR 650 mg $ Given 06/05/2022 4:00 AM WINDING RACK OPERATOR 650 mg $ Given 06/04/2022 10:28 PM WINDING RACK OPERATOR 650 mg buPROPion SR 12hr (Wellbutrin-SR) tablet 100 mg 100 mg, Oral, 2 TIMES DAILY, First dose on Sat06/04/22 at 1330, Until Discontinued, Do not crush, chew, or cut in half. $ Given 06/08/2022 8:07 PM WINDING RACK OPERATOR 100 mg $ Given 06/08/2022 9:07 AM WINDING RACK OPERATOR 100 mg $ Given 06/07/2022 8:20 PM WINDING RACK OPERATOR 100 mg carvedilol (Coreg) tablet 6.25 mg 6.25 mg, Oral, 2 TIMES DAILY, First dose on Sat06/04/22 at 2100, Until Discontinued, Take with food $ Given 06/08/2022 8:08 PM WINDING RACK OPERATOR 6.25 mg $ Given 06/08/2022 9:07 AM WINDING RACK OPERATOR 6.25 mg $ Given 06/07/2022 8:20 PM WINDING RACK OPERATOR 6.25 mg ceFAZolin (Ancef) 2 g in 0.9% NaCl IV 50 mL IVPB 2 g, at 100 mL/hr, Intravenous, EVERY 8 HOURS, 2 doses, First dose on Sat06/04/22 at 1930, Last dose on Sat06/05/22 at 0330, Indication for anti-infective therapy: Surgical prophylaxis, Post-op $ New Bag/Syringe 06/05/2022 4:02 AM WINDING RACK OPERATOR 2 g 100 m L/hr $ New Bag/Syringe 06/04/2022 8:34 PM WINDING RACK OPERATOR 2 g 100 mL /hr dextrose 10 [...] Until Discontinued $ Given 06/08/2022 9:07 AM WINDING RACK OPERATOR 20 mg $ Given 06/07/2022 8:42 AM WINDING RACK OPERATOR 20 mg $ Given 06/06/2022 8:20 AM WINDING RACK OPERATOR 20 mg fentaNYL (PF) (Sublimaze) injection 50 [...] MAR., PACU $ Given 06/04/2022 12:20 PM WINDING RACK OPERATOR 50 mcg $ Given 06/04/2022 12:00 PM WINDING RACK OPERATOR 50 mcg furosemide (Lasix) tablet 10 mg 10 mg, Oral, DAILY, First dose on Sat06/05/22 at 0900, Until Discontinued $ Given 06/05/2022 8:34 AM WINDING RACK OPERATOR 10 mg gabapentin (Neurontin) capsule 300 mg 300 mg, Oral, 3 TIMES DAILY, First dose on Sat06/05/22 at 0800, Until Discontinued $ Given 06/08/2022 8:08 PM WINDING RACK OPERATOR 300 m g $ Given 06/08/2022 2:36 PM WINDING RACK OPERATOR 300 mg $ Given 06/08/2022 9:07 AM WINDING RACK OPERATOR 300 mg HYDROmorphone (Dilaudid) injection 0.5 mg [...] MAR., PACU $ Given 06/04/2022 12:40 PM WINDING RACK OPERATOR 0.5 mg insulin lispro (HumaLOG;ADMelog) 100 UNIT/ML [...] physician, Post-op $ Given 06/07/2022 12:10 PM WINDING RACK OPERATOR 1 Units Left Arm $ Given 06/06/2022 5:28 PM WINDING RACK OPERATOR 2 Units Ri ght Arm $ Given 06/05/2022 6:00 PM WINDING RACK OPERATOR 1 Units Le ft Arm iron sucrose (Venofer) injection 200 mg 200 mg, Intravenous, DAILY, 5 doses, First dose on Sat06/06/22 at 0930, Last dose on Sat06/10/22 at 0900, May administer up to 200 mg of undiluted solution IVP slowly over 5 minutes $ Given 06/08/2022 9:06 AM WINDING RACK OPERATOR 200 mg $ Given 06/07/2022 8:42 AM WINDING RACK OPERATOR 200 mg $ Given 06/06/2022 10:37 AM WINDING RACK OPERATOR 200 mg lactated ringers infusion at 20 mL/hr, Intravenous, PRE-OP CONTINUOUS, Starting on Sat06/04/22 at 0545, Until Sat06/04/22 at 1314, Pre-op Restarted 06/04/2022 9:36 AM WINDING RACK OPERATOR $ New Bag/Syringe 06/04/2022 6:42 AM WINDING RACK OPERATOR 20 mL/ hr latanoprost (Xalatan) 0.005 % ophthalmic solution 1 drop 1 drop, Each Eye, AT BEDTIME, First dose on Sat06/04/22 at 2100, Until Discontinued, Allow at least 5 minutes between administration of multiple ophthalmic products Once opened, store at room temperature $ Given 06/08/2022 8:08 PM WINDING RACK OPERATOR 1 drop $ Given 06/07/2022 8:22 PM WINDING RACK OPERATOR 1 drop $ Given 06/06/2022 8:27 PM WINDING RACK OPERATOR 1 drop lisinopril (Prinivil; Zestril) tablet 20 mg 20 mg, Oral, DAILY, First dose on Sat06/05/22 at 0900, Until Discontinued $ Given 06/08/2022 9:07 AM WINDING RACK OPERATOR 20 mg $ Given 06/07/2022 8:41 AM WINDING RACK OPERATOR 20 mg $ Given 06/06/2022 8:20 AM WINDING RACK OPERATOR 20 mg magnesium sulfate 2 g in 50 mL bolus 2 g, at 25 mL/hr, Administer over 120 Minutes, Intravenous, ONCE, 1 dose, On Sat06/06/22 at 0745, Infuse at 1 gm/hr $ New Bag/Syringe 06/06/2022 8:17 AM WINDING RACK OPERATOR 2 g 25 mL/hr magnesium sulfate 2 g in 50 mL bolus 2 g, at 25 mL/hr, Administer over 120 Minutes, Intravenous, ONCE, 1 dose, On Sat06/08/22 at 0900, Infuse at 1 gm/hr $ New Bag/Syringe 06/08/2022 9:11 AM WINDING RACK OPERATOR 2 g 25 mL/hr meclizine (Antivert) tablet 25 mg 25 mg, Oral, 3 TIMES DAILY PRN, Dizziness, Starting on Sat06/07/22 at 0945, Until Sat06/08/22 at 2259 $ Given 06/08/2022 10:50 AM WINDING RACK OPERATOR 25 mg $ Given 06/07/2022 1:57 PM WINDING RACK OPERATOR 25 mg methocarbamol (Robaxin) tablet 750 mg 750 mg, Oral, EVERY 6 HOURS PRN, Muscle Spasms, Starting on Sat06/04/22 at 1315, Until Sat06/05/22 at 1018, Post-op $ Given 06/05/2022 5:39 AM WINDING RACK OPERATOR 750 mg $ Given 06/04/2022 10:28 PM WINDING RACK OPERATOR 750 mg ondansetron (Zofran) injection 4 mg 4 mg, Intravenous, EVERY 6 HOURS PRN, Nausea/Vomiting, Starting on Sat06/05/22 at 0759, Until Sat06/08/22 at 2259, Administer over 2 to 5 minutes. $ Given 06/06/2022 8:26 PM WINDING RACK OPERATOR 4 mg oxyCODONE (immediate release) (Roxicodone) tablet [...] MAR., Post-op $ Given 06/05/2022 8:33 AM WINDING RACK OPERATOR 10 mg oxyCODONE (immediate release) (Roxicodone) tablet [...] MAR., Post-op $ Given 06/04/2022 10:27 PM WINDING RACK OPERATOR 5 mg $ Given 06/04/2022 6:08 PM WINDING RACK OPERATOR 5 mg oxyCODONE (immediate release) (Roxicodone) tablet [...] MAR., Post-op $ Given 06/08/2022 10:50 AM WINDING RACK OPERATOR 5 mg $ Given 06/06/2022 8:27 PM WINDING RACK OPERATOR 5 mg $ Given 06/06/2022 4:57 AM WINDING RACK OPERATOR 5 mg pantoprazole EC (Protonix) tablet 40 mg 40 mg, Oral, DAILY, First dose on Sat06/04/22 at 1330, Until Discontinued, Do not crush, chew, or cut in half. $ Given 06/08/2022 9:07 AM WINDING RACK OPERATOR 40 mg $ Given 06/07/2022 8:41 AM WINDING RACK OPERATOR 40 mg $ Given 06/06/2022 8:20 AM WINDING RACK OPERATOR 40 mg polyethylene glycol 3350 (Miralax) packet 17 g 17 g, Oral, DAILY, First dose (after last modification) on Sat06/05/22 at 0900, Until Discontinued, Mix in 8 ounces of water, juice, soda, coffee or tea prior to administration, Post-op $ Given 06/06/2022 8:20 AM WINDING RACK OPERATOR 17 g $ Given 06/05/2022 8:33 AM WINDING RACK OPERATOR 17 g polyethylene glycol 3350 (Miralax) packet 17 g 17 g, Oral, 2 TIMES DAILY, First dose (after last modification) on Sat06/06/22 at 2100, Until Discontinued, Mix in 8 ounces of water, juice, soda, coffee or tea prior to administration, Post-op $ Given 06/06/2022 8:28 PM WINDING RACK OPERATOR 17 g polyethylene glycol 3350 (Miralax) packet 17 g 17 g, Oral, DAILY PRN, Constipation, Starting on Sat06/07/22 at 0906, Until Sat06/08/22 at 2259, Mix in 8 ounces of water, juice, soda, coffee or tea prior to administration, Post-op pravastatin (Pravachol) tablet 40 mg 40 mg, Oral, AT BEDTIME, First dose on Sat06/04/22 at 2100, Until Discontinued $ Given 06/08/2022 8:07 PM WINDING RACK OPERATOR 40 mg $ Given 06/07/2022 8:20 PM WINDING RACK OPERATOR 40 mg $ Given 06/06/2022 8:27 PM WINDING RACK OPERATOR 40 mg QUEtiapine (SEROquel) tablet 100 mg 100 mg, Oral, 2 TIMES DAILY, First dose (after last reorder) on Sat06/04/22 at 1445, Until Discontinued $ Given 06/05/2022 8:34 AM WINDING RACK OPERATOR 100 mg $ Given 06/04/2022 8:34 PM WINDING RACK OPERATOR 100 mg QUEtiapine (SEROquel) tablet 100 mg 100 mg, Oral, DAILY, First dose (after last modification) on Sat06/06/22 at 0900, Until Discontinued $ Given 06/07/2022 8:41 AM WINDING RACK OPERATOR 100 mg $ Given 06/06/2022 8:20 AM WINDING RACK OPERATOR 100 mg QUEtiapine (SEROquel) tablet 100 mg 100 mg, Oral, EVERY EVENING, First dose (after last modification) on Sat06/08/22 at 1700, Until Discontinued $ Given 06/08/2022 6:27 PM WINDING RACK OPERATOR 100 mg QUEtiapine (SEROquel) tablet 50 mg 50 mg, Oral, Once, 1 dose, On Sat06/07/22 at 2000 $ Given 06/07/2022 8:22 PM WINDING RACK OPERATOR 50 mg saline nasal spray ([place]; Baby Jacob) 0.65 % nasal spray 2 spray 2 spray, Each Nostril, EVERY 1 HOUR PRN, Dry Nose, Starting on Sat06/06/22 at 0946, Until Sat06/08/22 at 2259 senna-docusate (Senokot-S) tablet 1 tablet 1 tablet, Oral, DAILY, First dose on Sat06/04/22 at 1330, Until Discontinued, Post-op $ Given 06/06/2022 8:20 AM WINDING RACK OPERATOR 1 tablet $ Given 06/05/2022 8:34 AM WINDING RACK OPERATOR 1 tablet sodium - potassium phosphates (K Phos Neutral) tablet 2 tablet 2 tablet, Oral, ONCE, 1 dose, On Sat06/07/22 at 0900, Contains Phos 8 mmol, K+ 1.1 mEq, Na 13 mEq per tablet $ Given 06/07/2022 8:41 AM WINDING RACK OPERATOR 2 tablets vitamin D3 (Cholecalciferol) 10 MCG (400 UNIT) tablet 400 Units 400 Units, Oral, DAILY, First dose on Sat06/08/22 at 0900, Until Discontinued, 400 units = 10 mcg $ Given 06/08/2022 9:07 AM WINDING RACK OPERATOR 400 Units vitamin D3 (Cholecalciferol) 10 MCG (400 UNIT) tablet 800 Units 800 Units, Oral, DAILY, First dose (after last modification) on Sat06/09/22 at 0900, Until Discontinued, 400 units = 10 mcg documented in this encounter Active and Recently Administered Medications Times are shown in WINDING RACK OPERATOR. Scheduled Medication Order 06/06/2022 06/07/202206/0806/08/2022 0.9% NaCl [...] SN Anabel)1357 ($ Given - Provider: SN Aanbel)2019 ($ Given - Provider: Vivian Boo RN) [...] RN) 1050 ($ Given - Provider: Makenzie Choi, SANTI) polyethylene glycol 3350 (Miralax) packet 17 g 17 g, Oral, DAILY PRN, Constipation, Starting on Jeanette 06/07/22 at 0906, Until Sat06/08/22 at 2259, Mix in 8 ounces of water, juice, soda, coffee or tea prior to administration, Post-op saline nasal spray ([place]; Baby Jacob) 0.65 % nasal spray 2 spray 2 [...] Post-op documented in this encounter Care Teams Pc Analyst Relationship Specialty Start Date End Date Karrie Phillips MD [facility] [place] [address] PCP - General 03/13/22 documented as of this encounter
--- OUTSIDE RECORDS SUMMARY | 2024-04-11 13:17 | XMS_ITS | Encounter Summary ---
Author Organization [facility] Address [address] [facility] [place] [address] Care Team Providers Care Production Superintendent Hydro Name Role Phone Karrie Phillips MD Primary Care Provider [phone] Encounter Details Date Type Department Care Team [...] st Contact Info) Description 06/02/2024 1:45 PM HEAD OF CYTOGENETICS Office Visit [facility] [address] [place] [address], [facility] [place] [address] Deon Taylor MD [address] [place] [phone] documented as of this encounter Visit Diagnoses Not on filedocumented in this encounter Care Teams Production Superintendent Hydro Relationship Specialty Start Date End Date Karrie Phillips MD [address] [place] [address] PCP - General 03/13/22 documented as of this encounter
--- OUTSIDE RECORDS SUMMARY | 2024-04-11 13:18 | XMS_ITS | Encounter Summary ---
Author Organization [facility] Address [facility] [facility] [place], [place] [address] [place] [address] Care Team Providers Care Data Analyst Report Writer Name Role Phone Miah Montiel MD Primary Care Provider Unavailable Miah Montiel MD Primary Care Provider Unavailable Miah Montiel MD Primary Care Provider Unavailable Encounter Details Date Type Department Care Team (Late st Contact Info) Description 12/09/2007 Abstract [facility] [place] [address] Miah Montiel MD Social History Tobacco Use [...] on filedocumented in this encounter Care Teams Data Analyst Report Writer Relationship Specialty Start Date End Date Miah Montiel MD PCP - General 12/31/12 Miah Montiel MD PCP - General 10/13/12 Miah Montiel MD PCP - General 09/15/10 documented as of this encounter
--- OUTSIDE RECORDS SUMMARY | 2024-04-11 13:18 | XMS_ITS | Encounter Summary ---
Author Organization [facility] Address [address] [facility] [place] [address] Care Team Providers Care Injection Operator Name Role Phone Karrie Phillips MD Primary Care Provider [phone] Encounter Details Date Type Department Care Team (Late st Contact Info) Description 02/15/2022 Ophth Exam [facility] [address] [place] [id number] [phone] Makenzie Sin DO [address] [place] [phone] Social History Tobacco Use Types Packs/Day Years [...] st Contact Info) Description 06/02/2024 1:45 PM MILITARY AIRCRAFT DESIGNER Office Visit [facility] [address] [facility], [place] [address] Deon Taylor MD [facility] [place] [address] documented as of this encounter Visit Diagnoses Not on filedocumented in this encounter Additional Health Concerns Infection Onset Date Last Indicated Resolved Time COVID-19 Under Investigation 02/15/2022 02/15/2022 02/15/2022 3:59 PM MILITARY AIRCRAFT DESIGNER documented as of this encounter Care Teams Injection Operator Relationship Specialty Start Date End Date Karrie Phillips MD [address] [place] [address] PCP - General 03/13/22 documented as of this encounter
--- OUTSIDE RECORDS SUMMARY | 2024-04-11 13:18 | XMS_ITS | Encounter Summary ---
Author Organization [facility] Address [address] [facility] [place] [address] Care Team Providers Care Phosphoric Acid Operator Name Role Phone Karrie Phillips MD Primary Care Provider [phone] Encounter Details Date Type Department Care Team (Late st Contact Info) Description 02/16/2022 Ophth Exam [facility] [address] [place] [address] Pi, Renee Brink MD [address] [place] [phone] Social History Tobacco Use Types Packs/Day [...] st Contact Info) Description 06/02/2024 1:45 PM BABY FORMULA WORKER Office Visit [facility] [address] [place] [address], [facility] [place] [address] Deon Taylor MD [address] [place] [address] documented as of this encounter Visit Diagnoses Not on filedocumented in this encounter Care Teams Phosphoric Acid Operator Relationship Specialty Start Date End Date Karrie Phillips MD [address] [place] [address] PCP - General 03/13/22 documented as of this encounter
--- OUTSIDE RECORDS SUMMARY | 2024-04-11 13:18 | XMS_ITS | Encounter Summary ---
Author Organization [facility] Address [address] [place] [address] Care Team Providers Care Cashier Host/Hostess Name Role Phone Unavailable Primary Care Provider Unavailabl e Reason for Visit * Reason Comments Pain Neck Encounter Details Date Type Department Care Team (Late st Contact Info) Description 12/07/2009 1:45 PM CDT Office Visit [facility] [address] [facility], [address] [place] [address] Dionisio Ryan MD [address] [address] Degeneration of Cervical Intervertebral Disc (Primary Dx) [...] on: 05/01/2010 Modules accepted: Level of Service WINDER * Lynn Romero - 05/01/2010 10:59 AM CST Comment: Corrected CPT 75059 not allowed with MCR WINDER * Dionisio Ryan MD - 12/07/2009 1:43 [...] st Contact Info) Description 06/02/2024 1:45 PM HAND WINDER Office Visit [facility] [address] [place] [address], [place] [address] Deon Taylor MD [address] [place] [address] documented as of this encounter Visit Diagnoses Diagnosis Degeneration of cervical intervertebral disc- Primary documented in this encounter
--- OUTSIDE RECORDS SUMMARY | 2024-04-11 13:18 | XMS_ITS | Encounter Summary ---
Author Organization [facility] Address [facility] [facility] [address] [place] [address] Care Team Providers Care Drive Worker Name Role Phone Miah Montiel MD Primary Care Provider Unavailable Miah Montiel MD Primary Care Provider Unavailable Miah Montiel MD Primary Care Provider Unavailable Encounter Details Date Type Department Care Team (Late st Contact Info) Description 09/27/1995 [place] [address] Miah Montiel MD Social History Tobacco Use [...] on filedocumented in this encounter Care Teams Drive Worker Relationship Specialty Start Date End Date Miah Montiel MD PCP - General 12/31/12 Miah Montiel MD PCP - General 10/13/12 Miah Montiel MD PCP - General 09/15/10 documented as of this encounter
--- OUTSIDE RECORDS SUMMARY | 2024-04-11 13:18 | XMS_ITS | Encounter Summary ---
Author Organization [facility] Address [facility]6 [place] [address] [place] [address] Care Team Providers Care Gun Welder Name Role Phone Md Generic Willa HANEY Primary Care Provider Unavailable Miah Haney MD Primary Care Provider Unavailable Md Generic Willa HANEY Primary Care Provider Unavailable Encounter Details Date Type Department Care Team ([facility] st Contact Info) Description 09/10/2008 Abstract [facility] [address] [place] [address] Aldo Joy MD [address] [facility] [address] [address] Social History Tobacco Use Types Packs/Day Years [...] on filedocumented in this encounter Care Teams Gun Welder Relationship Specialty Start Date End Date Miah Haney MD PCP - General 12/31/12 Miah Haney MD PCP - General 10/13/12 Miah Haney MD PCP - General 09/15/10 documented as of this encounter
--- OUTSIDE RECORDS SUMMARY | 2024-04-11 13:18 | XMS_ITS | Encounter Summary ---
Author Organization [facility] Address [address] [facility] [place] [address] Care Team Providers Care Roll Coating Machine Operator Name Role Phone Unavailable Primary Care Provider Unavailabl e Reason for Visit * Reason Onset Date Comments ED Referral 02/14/2022 Encounter Details Date Type Department Care Team (Late st Contact Info) Description 02/14/2022 Telephone [facility] [address] [place] [phone] Makenzie Sin DO [address] [place] [phone] ED Referral Social History Tobacco Use Types [...] 72 year old female currently in the [facility] ED. Per [facility] care team, [...] patient who was amenable to transfer to [facility] for evaluation. Requested that her images be sent on a disc due to inability to access them in [employer] or [employer]. Makenzie Sin DO Ophthalmology Resident 02/14/2022 7:54 PM L BEARING GRINDER documented in this encounter Plan of Treatment Upcoming Encounters Date Type Department Care Team (Late st Contact Info) Description 06/02/2024 1:45 PM JEWEL BEARING GRINDER Office Visit [facility] [address] [place] [address], [place] [address] Deon Taylor MD [address] [place] [address] documented as of this encounter Visit Diagnoses Not on filedocumented in this encounter
--- OUTSIDE RECORDS SUMMARY | 2024-04-11 13:18 | XMS_ITS | Encounter Summary ---
Author Organization [facility] Address [facility]6 [facility] [place] [address] [place] [address] Care Team Providers Care Grid Molder Name Role Phone Md Generic Willa HANEY Primary Care Provider Unavailable Miah Haney MD Primary Care Provider Unavailable Md Generic Willa HANEY Primary Care Provider Unavailable Encounter Details Date Type Department Care Team (Late st Contact Info) Description 10/05/2008 Abstract [facility] [place] [address] Adi Vieira MD [address] [place] [address] Social History Tobacco Use Types Packs/Day Years [...] on filedocumented in this encounter Care Teams Grid Molder Relationship Specialty Start Date End Date Miah Haney MD PCP - General 12/31/12 Miah Haney MD PCP - General 10/13/12 Miah Haney MD PCP - General 09/15/10 documented as of this encounter
--- OUTSIDE RECORDS SUMMARY | 2024-04-11 13:18 | XMS_ITS | Encounter Summary ---
Author Organization [facility] Address [facility] [place], [place] [address] [place] [address] Care Team Providers Care Car Rental Agency Manager Name Role Phone Miah Montiel MD Primary Care Provider Unavailable Miah Montiel MD Primary Care Provider Unavailable Miah Montiel MD Primary Care Provider Unavailable Encounter Details Date Type Department Care Team (Late st Contact Info) Description 04/26/1995 [place] [address] Miah Montiel MD Social History Tobacco Use [...] on filedocumented in this encounter Care Teams Car Rental Agency Manager Relationship Specialty Start Date End Date Miah Montiel MD PCP - General 12/31/12 Miah Montiel MD PCP - General 10/13/12 Miah Montiel MD PCP - General 09/15/10 documented as of this encounter
--- OUTSIDE RECORDS SUMMARY | 2024-04-11 13:18 | XMS_ITS | Encounter Summary ---
Author Organization [facility] Address [facility]6 [place] [address] [place] [address] Care Team Providers Care Premix Operator Concentrate Name Role Phone Md Generic Willa HANEY Primary Care Provider Unavailable Miah Haney MD Primary Care Provider Unavailable Md Generic Willa HANEY Primary Care Provider Unavailable Encounter Details Date Type Department Care Team (Late st Contact Info) Description 09/11/2008 Abstract [facility] [place] [address] Adi Vieira MD [address] [place] [address] Social History Tobacco Use Types Packs/Day Years [...] on filedocumented in this encounter Care Teams Premix Operator Concentrate Relationship Specialty Start Date End Date Miah Haney MD PCP - General 12/31/12 Miah Haney MD PCP - General 10/13/12 Miah Haney MD PCP - General 09/15/10 documented as of this encounter
--- OUTSIDE RECORDS SUMMARY | 2024-04-11 13:18 | XMS_ITS | Encounter Summary ---
Author Organization [facility] Address [facility]6 [facility]. [place], [place] [address] [place] [address] Care Team Providers Care Wash And Greaser Name Role Phone Miah Montiel MD Primary Care Provider Unavailable Miah Montiel MD Primary Care Provider Unavailable Miah Montiel MD Primary Care Provider Unavailable Encounter Details Date Type Department Care Team (Late st Contact Info) Description 05/28/1990 [place] [address] Miah Montiel MD Social History Tobacco Use [...] on filedocumented in this encounter Care Teams Wash And Greaser Relationship Specialty Start Date End Date Miah Montiel MD PCP - General 12/31/12 Miah Montiel MD PCP - General 10/13/12 Miah Montiel MD PCP - General 09/15/10 documented as of this encounter
--- OUTSIDE RECORDS SUMMARY | 2024-04-11 13:18 | XMS_ITS | Clinical Summary ---
Author Organization [facility] Address Critical access hospital6 [facility] [place] [address] [place] [address] Care Team Providers Care Dust Puller Name Role Phone None, Provider Primary Care [...] Comments Blood Pressure 102/68 05/27/2022 1:18 PM CAN CAPPER Pulse 70 05/27/2022 1:18 PM CAN CAPPER Temperature 36.8 ??C (98.3 ??F) 05/27/2022 1:18 PM CS T Respiratory Rate 18 05/27/2022 1:18 PM CAN CAPPER Oxygen Saturation 100% 05/27/2022 1:18 PM CAN CAPPER Inhaled Oxygen Concentration - - Weight 64.7 kg (142 lb 10.2 oz) 05/27/2022 1:18 PM CAN CAPPER Height 154.9 cm (5' 1 ) 05/27/2022 1:18 PM CAN CAPPER Body Mass Index 26.95 05/27/2022 1:18 PM CAN CAPPER Plan of Treatment Health Maintenance Due Date [...] patient's age to complete this topic Insurance Care Teams Dust Puller Relationship Specialty Start Date End Date None, Provider, PCP - General UNKNOWN PHYSICIAN SPECIALTY 05/27/22
--- OUTSIDE RECORDS SUMMARY | 2024-04-11 13:18 | XMS_ITS | Encounter Summary ---
Author Organization [facility] Address [address] [facility] [place] [address] Care Team Providers Care Net Mvc Developer Name Role Phone Unavailable Primary Care Provider Unavailabl e Encounter Details Date Type Department Care Team (Late Contact Info) Description 12/07/2009 Orders Only [facility] [address] [facility], [address] [place] [address] Dionisio Ryan MD [address] [facility] [address] [place] [address] Degeneration of Cervical Intervertebral Disc Social History Tobacco Use Types Packs/Day Years Used Date Smoking Tobacco: Never Assessed Sex and Gender Information Value Date Recorded Sex Assigned at Not on file Gender Identity Not on file Sexual Orientation Not on file documented as of this encounter Plan of Treatment Upcoming Encounters Date Type Department Care Team (Late Contact Info) Description 06/02/2024 1:45 PM STATISTICAL TECHNICIAN Office Visit [facility] [facility], [place] [phone] Deon Taylor MD [address] [place] [id number] documented as of this encounter Visit Diagnoses Diagnosis Degeneration of cervical intervertebral disc- Primary documented in this encounter
--- OUTSIDE RECORDS SUMMARY | 2024-04-11 13:18 | XMS_ITS | Encounter Summary ---
Author Organization [facility] Address [facility]6 [place] [address] [place] [address] Care Team Providers Care Machine Lead Burner Name Role Phone Md Generic Willa HANEY Primary Care Provider Unavailable Miah Haney MD Primary Care Provider Unavailable Md Generic Willa HANEY Primary Care Provider Unavailable Encounter Details Date Type Department Care Team (Late st Contact Info) Description 09/15/[address] [facility] [place] [address] Adi Vieira MD [address] [place] [address] Social History Tobacco Use Types Packs/Day Years [...] esophagus documented in this encounter Care Teams Machine Lead Burner Relationship Specialty Start Date End Date Miah Haney MD PCP - General 12/31/12 Miah Haney MD PCP - General 10/13/12 Miah Haney MD PCP - General 09/15/10 documented as of this encounter
--- OUTSIDE RECORDS SUMMARY | 2024-04-11 13:18 | XMS_ITS | Encounter Summary ---
Author Organization [facility] Address [facility]6 [facility] [place] [address] [place] [address] Care Team Providers Care Photographic Equipment Assembler Name Role Phone Md Generic Willa HANEY Primary Care Provider Unavailable Miah Haney MD Primary Care Provider Unavailable Md Generic Willa HANEY Primary Care Provider Unavailable Encounter Details Date Type Department Care Team (Late st Contact Info) Description 10/15/2008 Abstract [facility] [place] [address] dAi Vieira MD [address] [place] [address] Social History Tobacco Use Types Packs/Day Years [...] on filedocumented in this encounter Care Teams Photographic Equipment Assembler Relationship Specialty Start Date End Date Miah Haney MD PCP - General 12/31/12 Miah Haney MD PCP - General 10/13/12 Miah Haney MD PCP - General 09/15/10 documented as of this encounter
--- OUTSIDE RECORDS SUMMARY | 2024-04-11 13:18 | XMS_ITS | Encounter Summary ---
Author Organization [facility] [place] Address [facility]6 [facility] [place] [address] [place] [address] Care Team Providers Care District Court Reporter Name Role Phone None, Provider MD Primary Care Provider Unavaila ble Reason for Referral * (Routine) - Closed Specialty Diagnoses / Procedures Referred By Contac t Referred To Contact Procedures LACERATION REPAIR Radha Salcedo MD [address] [place] [address] Phone: tel: fax: Referral ID Status Reason Start Date Expiration Date Visits Re quested Visits Authorized [id number] Closed 05/27/2022 05/27/2023 1 1 N INSPECTOR * Imaging (Emergency) - Closed Specialty Diagnoses / Procedures Referred By Contac t Referred To Contact RADIOLOGY Procedures CT CERV SPINE WO Radha Cortes MD [address] [place] [address] Phone: tel: fax: Referral ID Status Reason Start Date Expiration Date Visits Re quested Visits Authorized [id number] Closed 05/27/2022 05/27/2023 1 1 N INSPECTOR * Imaging (Emergency) - Closed Specialty Diagnoses / Procedures Referred By Contac t Referred To Contact RADIOLOGY Procedures CT HEAD WO Radha Cortes MD [address] [place] [address] Phone: tel: fax: Referral ID Status Reason Start Date Expiration Date Visits Re quested Visits Authorized [id number] Closed 05/27/2022 05/27/2023 1 1 N INSPECTOR Reason for Visit * Reason Comments Fall Head Injury Arm Pain Encounter Details Date Type Department Care Team (Late st Contact Info) Description 05/27/2022 1:17 PM RADON INSPECTOR - 05/27/2022 4:30 PM RADON [address] Emergency [facility] [place] [address] Radha Salcedo MD [address] [facility] [place] [address] Fall; Head Injury; Arm Pain [...] Coronavirus/COVID-19? No / Unsure 05/27/2022 1:34 PM RADON INSPECTOR documented as of this encounter Last Filed Vital Signs Vital Sign Reading Time Taken Comments Blood Pressure 102/68 05/27/2022 1:18 PM RADON INSPECTOR Pulse 70 05/27/2022 1:18 PM RADON INSPECTOR Temperature 36.8 ??C (98.3 ??F) 05/27/2022 1:18 PM CS T Respiratory Rate 18 05/27/2022 1:18 PM RADON INSPECTOR Oxygen Saturation 100% 05/27/2022 1:18 PM RADON INSPECTOR Inhaled Oxygen Concentration - - Weight 64.7 kg (142 lb 10.2 oz) 05/27/2022 1:18 PM RADON INSPECTOR Height 154.9 cm (5' 1 ) 05/27/2022 1:18 PM RADON INSPECTOR Body Mass Index 26.95 05/27/2022 1:18 PM RADON INSPECTOR documented in this encounter Discharge Instructions * Attachments The following attachments cannot be sent through Care Everywhere. * Laceration Repair With Mohawk Discharge Instructions (American) * Wound Care (American) * Laceration Repair (American) * Joint Pain (American) * Minor Head Injury (American) documented in this encounter ED Notes * [...] Patient verbalized understanding of the discharge instructions. N INSPECTOR * Renetta Clarke RN - 05/27/2022 3:14 PM CST Pt's hair on back of the head is matted with blood at this time. Hair and skin cleaned with normal saline per doctors request. Wound now visible. Provider notified for re-evaluation of head wound nowthat it is visible N INSPECTOR * Radha Salcedo MD - 05/27/2022 1:50 PM CSTAssociated Order(s): Lac Repair Chief Complaint Chief Complaint Patient presents with ??? Fall ??? Head Injury ??? Arm Pain History of Present Illness History provided by: Patient, medical records and EMS personnel legislative correspondent used: No Trauma Mechanism of injury: fall [...] LT MIN 3V Final Result by User, [id number] (05/27 1449) EXAMINATION: XR WRIST LT MIN 3V HISTORY: [...] SHOULDER LT 3V Final Result by User, [email or web address] (05/27 8022) EXAMINATION: XR SHOULDER LT 3V HISTORY: Pain [...] SHOULDER RT 3V Final Result by User, [id number] (05/27 5105) Examination: XR SHOULDER RT 3V Exam time: [...] RT MIN 3V Final Result by User, [id number] (05/27 4833) IMAGING STUDIES: XR WRIST RT MIN 3V [...] RT MIN 2V Final Result by User, [id number] (05/27 9241) Examination: XR HUMERUS RT MIN 2V Exam [...] HIP JUAN 2V+PELVIS Final Result by User, [id number] (05/27 0257) Date: 05/27/2022 2:04 PM Exam: XR HIP [...] HEAD WO CON Final Result by User, [id number] (05/27 1414) CT HEAD WITHOUT CONTRAST Exam [...] SPINE WO CON Final Result by User, [id number] (05/27 1417) CT CERVICAL SPINE WITHOUT CONTRAST [...] of the C7-T1 level. These result in jhvk-qg-ivmzmbmw central cervical stenosis. The facets are normally [...] poor cosmetic result and poor wound healing [place] protocol: Patient identity confirmed: Verbally with patient, arm band and hospital- assigned identification number Laceration details: Location: Scalp Length (cm): 1 Depth (mm): 1 Treatment: Area cleansed with: Saline Skin repair: Repair method: Mohawk Number of mahesh: 1 Repair type: Repair type: Simple Post-procedure details: Dressing: Open (no dressing) Procedure completion: Tolerated well, no immediate complications Date/Time: 05/27/2022 6:09 PM Performed by: Radha Salcedo MD Authorized by: Radha Salcedo MD Consent: Consent obtained: Verbal Consent given by: Patient Risks discussed: Infection, pain, need for additional repair, poor cosmetic result and poor wound healing [place] protocol: Patient identity confirmed: Verbally with patient, arm band and hospital- assigned identification number Laceration details: Location: Scalp Length (cm): 1 Depth (mm): 1 Treatment: Area cleansed with: Saline Skin repair: Repair method: Mohawk Number of mahesh: 1 Repair type: Repair type: Simple Post-procedure details: Dressing: Open (no dressing) Procedure completion: Tolerated well, no immediate complications Date/Time: 05/27/2022 6:10 PM Performed by: Radha Salcedo MD Authorized by: Radha Salcedo MD Consent: Consent obtained: Verbal Consent given by: Patient Risks discussed: Infection, pain, need for additional repair, poor cosmetic result and poor wound healing [place] protocol: Patient identity confirmed: Verbally with patient, [...] by the physician. Radha Salcedo MD 05/27/221810 N INSPECTOR * Renetta Clarke RN - 05/27/2022 1:42 PM CST Pt's shirt cut off of pt at this time N INSPECTOR * Renetta Clarke RN - 05/27/2022 1:22 PM CST Pt to ED via EMS from [facility], following a fall. Pt states she lost [...] episodes of emesis en route to hospital. N INSPECTOR * Olimpia Munoz RN - 05/27/2022 1:17 PM CST Bed: 18 Expected date: Expected time: Means of arrival: Comments: [id number] N INSPECTOR documented in this encounter Plan of Treatment Not on file documented as of this encounter Procedures Procedure Name Priority Date/Time Associated Diagnosis Comments LACERATION REPAIR Routine 05/27/2022 6:0 8 PM RADON INSPECTOR XR WRIST LT MIN 3V STAT 05/27/2022 2: 38 PM RADON INSPECTOR XR SHOULDER RT 3V STAT 05/27/2022 2:3 6 PM RADON INSPECTOR XR SHOULDER LT 3V STAT 05/27/2022 2:3 6 PM RADON INSPECTOR XR WRIST RT MIN 3V STAT 05/27/2022 2: 36 PM RADON INSPECTOR XR HUMERUS RT MIN 2V STAT 05/27/2022 2:36 PM RADON INSPECTOR XR HIP JUAN 2V+PELVIS STAT 05/27/2022 2:[address] HEAD WO CON STAT 05/27/2022 2:[address] CERV SPINE WO CON STAT 05/27/2022 2:08 PM RADON INSPECTOR documented in this encounter Results * Lac Repair (05/27/2022 6:08 PM RADON INSPECTOR) Radha Cornejo MD - 05/27/2022 6:08 PM RADON INSPECTOR Radha Salcedo MD ? 05/27/2022 ??6:11 PM Lac Repair Date/Time: 05/27/2022 6:08 PM Performed by: Radha Salcedo MD Authorized by: Radha Salcedo MD Consent: ??Consent obtained: ??Verbal ??Consent given by: ??Patient ??Risks discussed: ??Infection, pain, need for additional repair, poor cosmetic result and poor wound healing [place] protocol: ??Patient identity confirmed: ??Verbally with patient, arm band and hospital-assigned identification number Laceration details: ??Location: ??Scalp ??Length (cm): ??1 ??Depth (mm): ??1 Treatment: ??Area cleansed with: ??Saline Skin repair: ??Repair method: ??Mohawk ??Number of mahesh: ??1 Repair type: ??Repair type: ??Simple Post-procedure details: ??Dressing: ??Open (no dressing) ??Procedure completion: ??Tolerated well, no immediate complications us Radha Salcedo MD PROCEDURE/MINOR SURGICAL ORDERA BLES Final Result * XR WRIST LT MIN 3V (05/27/2022 2:38 PM RADON INSPECTOR) Anatomical Region Laterality Modality Wrist Radiographic Vivian ging 05/27/2022 2:38 PM RADON INSPECTOR Impressions 05/27/2022 2:40 PM RADON INSPECTOR IMPRESSION: 1. ??No acute fracture identified. 2. ??Mild widening of the scapholunate interval. 3. ??Other chronic or nonurgent findings as described above. Referred By: ?? Interpreted By: Jose Alberto Reeves MD, 05/27/2022 2:38 PM Narrative 05/27/2022 2:40 PM RADON INSPECTOR EXAMINATION: XR WRIST LT MIN 3V HISTORY: [...] the traversing the joint. Procedure Note Jose Alberto Reeves MD - 05/27/2022 EXAMINATION: XR WRIST [...] XR HIP JUAN 2V+PELVIS (05/27/2022 2:36 PM RADON INSPECTOR) Anatomical Region Laterality Modality Hip, Pelvis Radiographic Vivian ging 05/27/2022 2:13 PM RADON INSPECTOR Impressions 05/27/2022 2:15 PM RADON INSPECTOR Impression: No acute osseous abnormality. Ordered By: RADHA SALCEDO Interpreted By: Sky Wayne Jr, MD, 05/27/2022 2:13 PM Narrative 05/27/2022 2:15 PM RADON INSPECTOR Date: 05/27/2022 2:04 PM Exam: XR HIP [...] HUMERUS RT MIN 2V (05/27/2022 2:36 PM RADON INSPECTOR) Anatomical Region Laterality Modality Humerus Radiographic Vivian ging 05/27/2022 2:41 PM RADON INSPECTOR Impressions 05/27/2022 2:45 PM RADON INSPECTOR IMPRESSION: No acute abnormality of the mid and distal humerus. Referred By: ?? Interpreted By: Shadi Franklin MD, 05/27/2022 2:41 PM Narrative 05/27/2022 2:45 PM RADON INSPECTOR Examination: XR HUMERUS RT MIN 2V Exam time: 05/27/2022 2:04 PM Indication: Pain after fall Comparison: None Findings: 2 views of the right humerus were obtained. ??The proximal humerus is better seen on the shoulder radiograph. ??The mid and distal humerus demonstrate no evidence for fracture. ??No osseous destruction. Procedure Note Shadi Franklin MD - 05/27/2022 Examination: XR HUMERUS RT [...] WRIST RT MIN 3V (05/27/2022 2:36 PM RADON INSPECTOR) Anatomical Region Laterality Modality Wrist Radiographic Vivian ging 05/27/2022 2:43 PM RADON INSPECTOR Impressions 05/27/2022 2:44 PM RADON INSPECTOR IMPRESSION: 1. ??There is no evidence of [...] 05/27/2022 2:43 PM Narrative 05/27/2022 2:44 PM RADON INSPECTOR IMAGING STUDIES: ??XR WRIST RT MIN 3V [...] XR SHOULDER RT 3V (05/27/2022 2:36 PM RADON INSPECTOR) Anatomical Region Laterality Modality Shoulder Radiographic Vivian ging 05/27/2022 2:39 PM RADON INSPECTOR Impressions 05/27/2022 2:44 PM RADON INSPECTOR IMPRESSION: 1. ??There is a high riding [...] 05/27/2022 2:39 PM Narrative 05/27/2022 2:44 PM RADON INSPECTOR Examination: XR SHOULDER RT 3V Exam time: [...] XR SHOULDER LT 3V (05/27/2022 2:36 PM RADON INSPECTOR) Anatomical Region Laterality Modality Shoulder Radiographic Vivian ging 05/27/2022 2:40 PM RADON INSPECTOR Impressions 05/27/2022 2:44 PM RADON INSPECTOR IMPRESSION: 1. ??No acute osseous abnormality identified. 2. ??Other chronic or nonurgent findings as described above. Referred By: ?? Interpreted By: Jose Alberto Reeves MD, 05/27/2022 2:40 PM Narrative 05/27/2022 2:44 PM RADON INSPECTOR EXAMINATION: XR SHOULDER LT 3V HISTORY: Pain [...] CERV SPINE WO CON (05/27/2022 2:08 PM RADON INSPECTOR) Anatomical Region Laterality Modality Spine Computed Tomogra phy 05/27/2022 2:13 PM RADON INSPECTOR Impressions 05/27/2022 2:15 PM RADON INSPECTOR IMPRESSION: 1.Extensive degenerative changes. No evidence of acute injury Ordered By: RADHA SALCEDO Interpreted By: Deni Martínez MD, 05/27/2022 2:13 PM Narrative 05/27/2022 2:[address] CERVICAL SPINE WITHOUT CONTRAST CLINICAL HISTORY: [...] of the C7-T1 level. These result in sreo-tw-vkqueqiq central cervical stenosis. The facets are normally [...] of the C7-T1 level. These result in xudt-jm-fccrwkcpyesyjjw cervical stenosis. The facets are normally aligned [...] CT HEAD WO CON (05/27/2022 2:08 PM RADON INSPECTOR) Anatomical Region Laterality Modality Head Computed Tomogra phy 05/27/2022 2:12 PM RADON INSPECTOR Impressions 05/27/2022 2:13 PM RADON INSPECTOR IMPRESSION: Left maxillary sinusitis. No evidence of acute intracranial injury Ordered By: RADHA SALCEDO Interpreted By: Deni Martínez MD, 05/27/2022 2:12 PM Narrative 05/27/2022 2:[address] HEAD WITHOUT CONTRAST Exam date: 05/27/2022 [...] 05/27/22 at 1345 Given 05/27/2022 1:43 PM RADON INSPECTOR 2 mg morphine injection 2 mg 2 mg, Intravenous, Once, 1 dose, On 05/27/22 at 1445 Given 05/27/2022 2:54 PM RADON INSPECTOR 2 mg ondansetron (ZOFRAN) injection 4 mg 4 mg, Intravenous, Once, 1 dose, On 05/27/22 at 1345, IV push over 2-5 minutes. Given 05/27/2022 1:43 PM RADON INSPECTOR 4 mg documented in this encounter Active and Recently Administered Medications Times are shown in RADON INSPECTOR. Scheduled Medication Order 05/25/2022 05/26/2022 05/27/2022 morphine [...] RN) documented in this encounter Care Teams District Court Reporter Relationship Specialty Start Date End Date None, Provider, MD PCP - General UNKNOWN PHYSICIAN SPECIALTY 05/27/22 documented as of this encounter
--- OUTSIDE RECORDS SUMMARY | 2024-04-11 13:18 | XMS_ITS | Encounter Summary ---
Author Organization [facility] Address [facility] [place] [address] [place] [address] Care Team Providers Care Construction Electrician Name Role Phone Miah Montiel MD Primary Care Provider Unavailable Miah Montiel MD Primary Care Provider Unavailable Encounter Details Date Type Department Care Team (Late st Contact Info) Description 10/13/2012 Abstract [facility] [place] [address] Adi Vieira MD [address] [place] [address] Social History Tobacco Use Types Packs/Day Years [...] examination documented in this encounter Care Teams Construction Electrician Relationship Specialty Start Date End Date Miah Montiel MD PCP - General 12/31/12 Miah Montiel MD PCP - General 10/13/12 documented as of this encounter
--- OUTSIDE RECORDS SUMMARY | 2024-04-11 13:18 | XMS_ITS | Encounter Summary ---
Author Organization [facility] Address Critical access hospital6 [facility]. [place], [place] [address] [place] [address] Care Team Providers Care Scow Derrick Operator Name Role Phone Miah Montiel MD Primary Care Provider Unavailable Encounter Details Date Type Department Care Team (Late st Contact Info) Description 12/31/2012 Abstract [place] [address] Adi Vieira MD [address] [place] [address] Social History Tobacco Use Types Packs/Day Years [...] examination documented in this encounter Care Teams Scow Derrick Operator Relationship Specialty Start Date End Date Miah Montiel MD PCP - General 12/31/12 documented as of this encounter
--- OUTSIDE RECORDS SUMMARY | 2024-04-11 13:18 | XMS_ITS | Encounter Summary ---
Author Organization [facility] Address [address] [place] [address] Care Team Providers Care Locomotive Boilermaker Name Role Phone Unavailable Primary Care Provider Unavailabl e Reason for Visit * Reason Onset Date Comments Consultation 02/14/2022 Encounter Details Date Type Department Care Team (Late st Contact Info) Description 02/14/2022 Telephone [facility] [address] [place] [address] Deon Perez MD [address] [facility] [place] [address] Consultation Social History Tobacco Use [...] PM CST ENT Telephone Note Spoke to [facility] center around 7:06PM regarding patient Kandace Cole who sustained facial trauma after a fall and presented to [facility] ED. Discussed with provider at OSH patient [...] Otolaryngology - Head and Neck Surgery 02/14/2022 IDE MACHINIST APPRENTICE documented in this encounter Plan of Treatment Upcoming Encounters Date Type Department Care Team (Late st Contact Info) Description 06/02/2024 1:45 PM OUTSIDE MACHINIST APPRENTICE Office Visit [facility] [address] [place] [address], [place] [address] Deon Taylor MD [address] [place] [phone] documented as of this encounter Visit Diagnoses Not on filedocumented in this encounter
--- OUTSIDE RECORDS SUMMARY | 2024-04-11 13:18 | XMS_ITS | Encounter Summary ---
Author Organization [facility] Address [address] [place] [address] Care Team Providers Care Ice Resurfacing Machine Operators Name Role Phone Unavailable Primary Care Provider Unavailabl e Reason for Visit * Reason Comments Fall BIBEMS transfer from [place], fall today with zygomatic fracture, -loc, -thinners. Denies vision changes Facial Fracture * Auth/Cert (Routine) Specialty Diagnoses / Procedures Referred By Contac t Referred To Contact Referral ID Status Reason Start Date Expiration Date Visits Re quested Visits Authorized [id number] 1 1 Encounter Details Date Type Department Care Team (Late st Contact Info) Description 02/14/2022 10:07 PM UPFITTER - 02/19/2022 2:23 PM [facility] Hospital Encounter SL 8S ACUTE [address] [place] [phone] Justo Sparrow MD [address] [facility] [place] [phone] Abeba Will, [address] [place] [address] Marii Light MD [address] [facility] [address] [place] [address] Internal Medicine Discharge Disposition: Home [...] Comments Blood Pressure 117/58 02/19/2022 11:27 AM UPFITTER Pulse 88 02/19/2022 11:27 AM UPFITTER Temperature 36.6 ??C (97.9 ??F) 02/19/2022 11:[address] Respiratory Rate 16 02/19/2022 11:27 AM UPFITTER Oxygen Saturation 98% 02/19/2022 11:27 AM UPFITTER Inhaled Oxygen Concentration - - Weight 70.3 kg (155 lb) 02/14/2022 10:27 PM UPFITTER Height 165.1 cm (5' 5 ) 02/14/2022 10:27 PM UPFITTER Body Mass Index 25.79 02/14/2022 10:27 PM UPFITTER documented in this encounter Functional Status Functional [...] Hospital Discharge Summary Patient ID: Kandace Cole [id number] 72 year old 1950 Admit date: 02/14/2022 [...] U for ophtho and ENT evaluation. At [facility], ENT was consulted, no acute intervention. They [...] 0.65 % nasal spray Commonly known as: Cimarron; Baby Buena Vista Dille 1 (one) spray into each nostril as [...] Your Medications These medications were sent to [facility] - [address] [facility] [address] [address] [facility] [address] ?? amoxicillin-clavulanate 875-125 MG tablet ?? artificial [...] PCP 7-10 days after discharge Contact information: [address] [place] [address] Dr. Erazo [place] [id number] Follow up with provider . Why: follow [...] your spine due to your cervical stenosis. [facility] Otolaryngology (ENT) follow up instructions: For your [...] outpatient follow upin our clinic in the [facility] ([address] [place] [address]; [phone]). Ophthalmology (Eye) Instructions and Follow-up Information: Follow up with your regular lactation coordinator as scheduled on March 01, 2022. Feel free to call ouroffice if needed. Our contact information and location is listed below. Location: [place] [address]. ??? Our clinic is located on the [facility]. If you are driving, you should follow the blue signsto the blue elevators in the parking garage for the [facility]. You will proceed to the [facility] to register for your appointment and will be directed to our clinic, which isalso located on the same level. Telephone number: ??? During business hours (8am - 4pm, Saturday - Saturday, excluding holidays), you may call our clinicat . ??? If after these hours or on the weekend, you will need to call [facility] ([phone]), dial0 for the shotweld operator, and say you are an eye patient and need to speak with the eye doctor bronzer. They will contact one of the eye [...] counseling patient, working withsocial work and nursing. TTER documented in this encounter Discharge Instructions * Discharge Instructions* Deon Perez MD - 02/15/2022 1:23 AM UPFITTER Images from the original note were not included. [facility] Otolaryngology (ENT) follow up instructions: For your [...] follow up in our clinic in the [facility] ([address] [place] [address]; [phone]). Ophthalmology (Eye) Instructions and Follow-up Information: Follow up with your regular lactation coordinator as scheduled on March 01, 2022. Feel free to call ouroffice if needed. Our contact information and location is listed below. Location: [address] [place] [address]. Our clinic is located on the [facility]. If you are driving, you should follow the blue signs to the blue elevators in the parking garage for the [facility]. You will proceed to the [facility] to register for your appointment and will be directed to our clinic, which is also located on the same level. Telephone number: During business hours (8am - 4pm, Saturday - Saturday, excluding holidays), you may call our clinic at . If after these hours or on the weekend, you will need to call [facility] ([phone]), dial [phone] for the shotweld operator, and say you are an eye patient and need to speak with the eye doctor bronzer. They will contact one of the eye doctors who will call you and address your concerns. Eye Drop Instructions: Apply erythromycin ointment to your stitches 4 times daily Activity Instructions: Do not rub your eyes No nose blowing for 2 weeks TTER documented in this encounter Medications at Time [...] mouth once daily 02/20/2022 saline nasal spray (Cimarron; Baby Buena Vista) 0.65 % nasal spray Dille 1 (one) spray into each nostril as [...] patient arranged Home Health Care Accepting Agency: [facility] Phone Number for Home Health Care Agency: [phone] Date Services to begin: 02/21/2022 Comments: Discharge information faxed to [phone]. No further case management needs at this time. Meet Leblanc RN Case Manager [phone] TTER * Ike Lisa, PT - 02/19/2022 1:35 PM CST [facility] Physical Therapy Progress Note Patient: [facility] Record Number: [id number] Date of : 1950 Age: [age] year [...] Following therapy session, patient left in bed. TTER * Shoshana Tenorio CPhT - 02/19/2022 1:13 PM CST MEDICATION [...] outpatient pharmacy at [phone]. Shoshana Tenorio CPhT [facility] at [address] [place], [place] [address] Hours of Operation Saturday - Saturday: 8:00am to 6:00pm Saturday: 9:00am to 1:00pm Epic: [facility] *Ensure the patient and clinic's nearby ZIP codes box is unchecked* TTER * Meet Quiroga RN - 02/19/2022 10:56 [...] 1039 by Meet Quiroga RN Outcome: Progressing TTER * Meet Quiroga RN - 02/19/2022 10:39 [...] safe completion of daily activities Outcome: Progressing TTER * Tyson Amado RN - 02/19/2022 8:01 AM CST This night nursenight nurse attempted x 2 to reach Team Med3 regarding the cortisol med that was administered last night but no one from Team Med 3 picked up the call. TTER * Tysno Amado RN - 02/19/2022 2:20 AM CST [...] safe completion of daily activities Outcome: Progressing TTER * Victoria Cormier RN - 02/18/2022 4:04 PM CST Problem: Fall Risk Goal: Fall risk and fall related injury risk are minimized (interventions related to the fall risk can be found in the flowsheet documentation) Outcome: Progressing TTER * Meet Flores PA-C - 02/18/2022 8:22 AM CST Hospitalist Daily Progress Note Name: Kandace Cole Age: [age] year old Room: 828/107u Date Admitted: 02/14/2022 Hospital Course: Kandace Cole [...] Feel free to text page me through [employer] Date of service: 02/18/2022 Attending Physician: Abeba Will DO TTER * Tyson Amado RN - 02/18/2022 1:31 [...] safe completion of daily activities Outcome: Progressing TTER * Victoria Cormier RN - 02/17/2022 4:36 [...] safe completion of daily activities Outcome: Progressing TTER * Meet Flores PA-C - 02/17/2022 2:03 PM CST Hospitalist Daily Progress Note Name: Kandace Cole Age: [age] year old Room: 837/[facility] Date Admitted: 02/14/2022 Hospital Course: Kandace [...] Feel free to text page me through [employer] Date of service: 02/17/2022 Attending Physician: Abeba Will DO TTER * Saira Soto MD - 02/17/2022 7:58 AM CST [facility] Daily Progress Note Kandace Cole, 72 year old, female : 1950 CSN: [id number] Primary Care Physician: Karrie Tompkins MD - [...] results for input(s): INR in the last 90268 hours. Physical Exam General: Awake, cooperative, in [...] to schedule/confirm appointment, contact information listed below. [facility] Orthopedic Surgery office contact information: [facility] at [address], First [place], [place] [id number] [facility] [address] [place] [address], [place] [address] [facility] [address] [place] [address], [address] [place] [address] Saira Soto MD 02/17/2022 7:58 AM TTER * Tyson Amado RN - 02/17/2022 12:15 [...] safe completion of daily activities Outcome: Progressing TTER * Tyson Amado RN - 02/16/2022 9:25 PM CST Pt.was asking if she can be prescribed Bydureon, an anti-diabetic medication, at home. She stated she received a dose of Bydureon here and she feels it was very effective in lowering her blood sugar.RN advised pt to discuss it with her primary team doctors but will also passed this info on to the team. TTER * Pi, MD Renee - 02/16/2022 3:58 PM CST [facility] Ophthalmology Consult Progress Note Patient: Kandace Cole [...] she was in the parkinglot of the [facility] cancer center when she became dizzy and fell, landing on the asphalt. Reports that she has had issues with dizziness due to neck abnormalities, and reports frequent head turning in a test she was completing there which she believes led to her fall. She was evaluated in the [facility] ED and found to have fractures of [...] She has an upcoming appointment with her lactation coordinator on 03/01/22 who is following her for [...] eyebrow laceration which was repaired at the [facility]. No retrobulbar hemorrhage. No proptosis, mostly [...] in the macula OU - Follows with lactation coordinator in [place] regularly, has appt 03/01/22 ?? T2DM without [...] PLAN: Has follow up scheduled with her lactation coordinator on 03/01/22, will provide our contact information in patient discharge instructions if needed. Thank you for this consult. If you have any questions, please feel free to reach out via [employer] secure chat or page ophthalmology. This patient has been seen with Dr. Adames. Renee Torres MD Ophthalmology Resident 02/16/2022 5:13 PM TTER Associated attestation - Cesar Adames MD - 02/18/2022 8:19 PM UPFITTER I have reviewed the resident note, the [...] home to help withlocomotion. Patient transferred from [facility] for further evaluation of facial bone [...] patient's preference is to stay within the [facility] Network and its affiliates.: Yes Verify Family Support (name and phone): Extended Emergency Contact Information Primary Emergency Contact: BARBARA CISNEROS Mobile Relation: Brother Secondary Emergency Contact: JanuaryBarbara Address: BROTHER Relation: Other Patient or guest relations representative requests care coordination reach out to [...] true Food Bank Resources Provided: Patient refused Tax Evaluator Referral: No If patient requires HHC at discharge, he/she requests: Patient agreeable to speak with [facility] at Home Will continue to follow. For any questions or needs please contact: Soil Surveyor Name/Phone number: Meet Leblanc RN Case Manager [phone] TTER * Camilla Trevino, PT - 02/16/2022 8:50 AM CST [facility] Physical Therapy Initial Evaluation Note Patient: [facility] Record Number: [id number] Date of : 1950 Age: [age] year [...] closed fractures of facial bone, initial encounter ([facility]) Past Medical History: Diagnosis Date ??? ANEMIA [...] Patient's activity tolerance: fair TREATMENT/INTERVENTIONS: evaluation Modified [place]: EDUCATION: While performing PT, Patient was instructed [...] and with minimal assist and appropriate AD Senior Living Goal(s): Patient to discharge to appropriate next [...] alarm on, with call light within reach. TTER * Jurgen Rivera, OT - 02/16/2022 8:50 AM CST [facility] Occupational Therapy Initial Evaluation Note Patient: K[facility] Record Number: [id number] Date of : 1950 Age: [age] year [...] closed fractures of facial bone, initial encounter ([facility]) Past Medical History: Diagnosis Date ??? Anemia [...] female resting comfortably in chair in hallway [facility]. LDA: IV's: Peripheral line Edema: No edema [...] Support Activities of Daily Living Feeding: Complete [place] (to drink from cup while seated in [...] will demonstrate good understanding of safety education Senior Living Goal(s): Patient to discharge to appropriate next [...] call light within reach, with RNVictoria aware. TTER * Meet Flores PA-C - 02/16/2022 7:35 [...] Feel free to text page me through [employer] Date of service: 02/16/2022 Attending Physician: Abeba Will DO TTER * Pan Oneil MD - 02/16/2022 6:28 AM CST [facility] Daily Progress Note Kandace Cole, 72 year old, female : 1950 CSN: [id number] Primary Care Physician: No primary care provider [...] results for input(s): INR in the last 16363 hours. General: Awake, cooperative, in no acute distress. CV: Regular rate. Pulm: No audible wheezing, no use of accessory muscles Abd: soft, nontender, nondistended Musculoskeletal: ?? Neck: - C-collar/Stark J: absent - Wounds: n/a - Tenderness [...] concerns Pan Oneil MD 02/16/2022 6:29 AM TTER * Tyson Amado RN - 02/16/2022 2:07 AM CST Problem: Fall Risk Goal: Fall risk and fall related injury risk are minimized (interventions related to the fall risk can be found in the flowsheet documentation) Outcome: Progressing TTER * Meet Flores PA-C - 02/15/2022 9:32 AM CST Hospitalist Daily Progress Note Name: Kandace Cole Age: [age] year old Room: [facility] Date Admitted: 02/14/2022 Hospital Course: Kandace Cole [...] Feel free to text page me through [employer] Date of service: 02/15/2022 Attending Physician: Abeba Will DO TTER documented in this encounter H&P Notes * Dagoberto Ordoñez MD - 02/15/2022 3:56 AM CST Images from the original note were not included. Name: Kandace Cole Admit Date and Time: 02/14/2022 10:07 PM Chief Complaint: Transferred from [facility] for ENT and of the [place] allergy consultation in context of facial bone [...] g/dL 3.4 Recent Labs Component Name 02/14/22 9914 TROPONINI 0.027 ECG: My personal interpretation of [...] closed fractures of facial bone, initial encounter ([facility]) Plan -admit to medicine floor for further [...] - Has follow up scheduled with her lactation coordinator on 03/01/22 - outpatient follow-up with ENT [...] accordingly. Dagoberto Ordoñez MD 02/15/2022 3:57 AM TTER documented in this encounter Consult Notes * Angelina Rabago - 02/16/2022 4:52 PM CSTAssociated Order(s): IP CONSULT TO STORE CASHIER PT/OT are recommending SNF at d/c. The patient refused but is agreeable to [facility]. Patient reports that she lives with her grandson that is able to help her at d/c. SW updated CM and primary team via [employer] chat. Angelina Allenan, AERIAL PLANTING AND CULTIVATION MANAGER 02/16/[phone] TTER * Pan Oneil MD - 02/15/2022 5:27 PM CST [facility] Consultation Note Kandace Cole, 72 year old, female : 1950 CSN: [id number] Primary Care Physician: No primary care provider on file. Chief Complaint Chief Complaint Patient presents with ??? Fall BIBEMS transfer from [place], fall today with zygomatic fracture, -loc, - thinners. Denies vision changes ??? Facial Fracture Admission Date/Time: 02/14/2022 10:07 PM Today's Date/Time: 02/15/2022 5:27 PM Time at Bedside: 4:30pm HPI Consulting Service: ED [facility] consulted for evaluation/management of: history of cervical stenosis 02/15 status post fall. Kandace Cole is a 72 year old female who as transfer from [facility] after fall on . CT facialbones [...] tablet 200 mg ??? saline nasal spray (Cimarron; Baby Buena Vista) 0.65 % nasal spray 1 spray Review of Systems A 12 point review of systems was performed and was negative except for: what was mentioned in the HPI Physical Exam General: Awake, cooperative, in no acute distress. CV: Regular rate. Pulm: No audible wheezing, no use of accessory muscles Abd: soft, nontender, nondistended Musculoskeletal: Neck: - C-collar/Stark J: absent - Wounds: n/a - Tenderness [...] 02/15/2022 5:27 PM Follow up Contact Information: [facility] Orthopedic Surgery office contact information: [facility] at [address], [place] [address], Second Floor [place], [place] [id number] [address] [place] [address] Visit our website at [email or web address] for information about our practice and an interactive health encyclopedia. Please visit [employer] to access your health record, ask questions, request medication refills, and request appointments for non-urgent needs after you have configured your [address] account. If you do not currently have access, please contact one of our staff members or call [phone]. For after hour emergencies, please call [phone] and press 0 for the shotweld operator in order to page the orthopedic resident bronzer. TTER Associated attestation - Deon Taylor MD - 02/16/2022 8:16 AM UPFITTER I have seen and evaluated the patient and agree with the resident's assessment and plan as stated above. I have independently reviewed all imaging studies. 72F with signs and symptoms of potential myelopathy. Patient reports she had an MRI done at [facility] prior to transfer. Will attempt to obtain MRI to review. Otherwise will need follow up and likely elective cervical decompression and fusion. Deon Taylor MD * Makenzie Cisneros DO - 02/15/2022 12:45 AM CST Images from the original note were not included. [facility] Ophthalmology Consult Note 02/15/2022 at 1:21 AM Patient: Kandace Cole Age: [age] year old Date of : 1950 Date of Admission: 02/14/2022 Chief Complaint Patient presents with ??? Fall BIBEMS transfer from [place], fall today with zygomatic fracture, -loc, - thinners. Denies vision changes ??? Facial Fracture HPI: Kandace Cole is a 72 year old female with a history of T2DM, CKD, fibromyalgia, and Ferrell's esophagus who presents s/p ground level fall which occurred on 02/14/22. States she was in the parking lot of the [facility] cancer center when she became dizzy and fell, landing on the asphalt. Reports that she has had issues with dizziness due to neck abnormalities, and reports frequent head turning in a test she was completing there which she believes led to her fall. She was evaluated in the [facility] ED and found to have fractures of [...] She has an upcoming appointment with her lactation coordinator on 03/01/22 who is following her for [...] Additional Notes CT facial bones 02/14/22 at [facility] personally reviewed. There is a fracture of [...] Vitreous Syneresis, no Bibi's sign Syneresis, no Lexington's sign Fundus Exam Right Left Disc Cupping [...] eyebrow laceration which was repaired at the [facility]. No retrobulbar hemorrhage. No proptosis, mostly [...] possible subclinical edema OD - Follows with lactation coordinator in [place] regularly, has appt 03/01/22 T2DM without retinopathy [...] - Has follow up scheduled with her lactation coordinator on 03/01/22, will provide our contact informationin patient discharge instructions if needed. Makenzie Cisneros, Ophthalmology 02/15/2022 1:21 AM TTER Associated attestation - Cesar Adames MD - 02/18/2022 8:17 PM UPFITTER I have reviewed the resident note, the [...] consultation for facial fractures. Patient presented to [facility] earlier in the evening after a fall. [...] CO2, BUN, CREATININE, GLUCOSE, CALCIUM in thelast 64318 hours. Recent Imaging/Studies: CT facial bones personally [...] follow up in our clinic in the [facility] ([address] [place] [address]; [phone]). ?? Please page ENT with questions/concerns. Deon Perez MD Otolaryngology - Head and Neck Surgery 02/15/2022 TTER Associated attestation - Brandyn Alfaro MD - 02/15/2022 12:09 PM UPFITTER Attending Physician Supervisory Note I personally interviewed [...] safe to transfer care at this time. TTER * Que Mercer RN - 02/15/2022 1:24 PM CST Notified Med 3 team of positive orthostatic BP TTER * Cadence Veliz RN - 02/15/2022 11:46 AM CST Pt returns from ECHO, ENT team at bedside at this time. No s/s acute distress noted. TTER * Cadence Veliz RN - 02/15/2022 10:17 AM CST Pt BP noted to be 85 45 with a map of 63. 500mL NS bolus ordered TTER * Tere Thompson RN - 02/15/2022 4:30 AM CST Pt resting comfortably on ED stretcher with equal and bilateral chest rise and fall. VSS. Denies needs at this time TTER * Unruly Witt MD - 02/15/2022 3:17 AM CST [facility] Emergency Department Clinical Course Patient Kandace [...] workup. Unruly Witt MD Emergency Medicine, PGY3 TTER * Tere Thompson RN - 02/15/2022 2:00 AM CST Purwick placed on pt TTER * Tere Thompson RN - 02/15/2022 12:15 AM CST Pt resting comfortably in ED stretcher with equal and bilateral chest rise and fall. Denies needs at this time. VSS. TTER * Justo Sparrow MD - 02/15/2022 12:06 [...] a 72 year old female??currently in the [facility] ED. Per [facility] care team, the [...] closed fractures of facial bone, initial encounter ([facility]) Disposition: Admission Please see resident note for [...] personal performance and is accurate and complete. TTER * Tere Thompson RN - 02/14/2022 10:19 PM CST Pt resting comfortably in ED stretcher with equal and bilateral chest rise and fall. VSS. A& Ox4. Cold wash rag placed over pts eyes due to head pain. MDs going into see pt regarding injuries andpain. TTER * Missy Ríos PA-C - 02/14/2022 10:07 PM CST Bed: AC17 Expected date: Expected time: Means of arrival: Comments: Douglas TTER documented in this encounter Plan of Treatment Upcoming Encounters Date Type Department Care Team (Late st Contact Info) Description 06/02/2024 1:45 PM UPFITTER Office Visit [facility] - Orthopedics [address] [place] [address], [facility] [place] [phone] Deon Taylor MD [address] [place] [id number] documented as of this encounter Procedures Procedure Name Priority Date/Time Associated Diagnosis Comments CORTISOL BLOOD AM Timed 02/19/2022 5:3 6 AM UPFITTER CORTISOL BLOOD AM Timed 02/19/2022 5:3 5 AM UPFITTER BASIC METABOLIC PANEL (CALCIUM TOTAL) AM Draw 02/19/2022 4:29 AM UPFITTER CORTISOL BLOOD AM Timed 02/19/2022 4:2 9 AM UPFITTER BASIC METABOLIC PANEL (CALCIUM TOTAL) Routine 02/18/2022 12:18 PM UPFITTER BASIC METABOLIC PANEL (CALCIUM TOTAL) AM Draw 02/18/2022 6:58 AM UPFITTER SODIUM URINE RANDOM Routine 02/17/2022 2 :08 PM UPFITTER OSMOLALITY URINE Routine 02/17/2022 2:08 PM UPFITTER CBC W/O DIFFERENTIAL AM Draw 02/17/2022 6:12 AM UPFITTER Syncope and collapse BASIC METABOLIC PANEL (CALCIUM TOTAL) AM Draw 02/17/2022 6:12 AM UPFITTER Syncope and collapse MRI CERVICAL SPINE WO CONTRAST Routine 02/16/2022 7:19 PM UPFITTER Degeneration of cervical intervertebral disc TSH REFLEX FREE T4 Routine 02/16/2022 7: 57 AM UPFITTER Syncope and collapse HEMOGLOBIN A1C Routine 02/16/2022 7:57 AM UPFITTER DM (diabetes mellitus) type II, controlled, with peripheral vascular disorder (HCC) CBC W/O DIFFERENTIAL AM Draw 02/16/2022 7:57 AM UPFITTER Syncope and collapse RENAL FUNCTION PANEL Routine 02/16/2022 7:57 AM UPFITTER Syncope and collapse MAGNESIUM BLOOD Routine 02/16/2022 7:57 AM UPFITTER Syncope and collapse GLUCOSE - POINT OF CARE Routine 02/16/2022 6:57 AM UPFITTER GLUCOSE - POINT OF CARE Routine 02/16/2022 1:[address] CERVICAL SPINE WO CONTRAST Routine 02/15/2022 10:41 PM UPFITTER Multiple closed fractures of facial bone, initial encounter (HCC) GLUCOSE - POINT OF CARE Routine 02/15/2022 8:42 PM UPFITTER GLUCOSE - POINT OF CARE Routine 02/15/2022 6:52 PM UPFITTER SARS-COV-2 (COVID-19)+INFLU A+B PCR RAPID STAT 02/15/2022 3:07 PM UPFITTER Trauma VAS CAROTID DUPLEX BILATERAL Routine 02/15/2022 1:56 PM UPFITTER Syncope and collapse GLUCOSE - POINT OF CARE Routine 02/15/2022 12:00 PM UPFITTER CARDIAC EKG ORDER 02/15/2022 11: 30 AM UPFITTER ECHO COMPLETE Routine 02/15/2022 11:27 AM UPFITTER Syncope and collapse URINALYSIS REFLEX TO MICROSCOPIC NO CULTURE STAT 02/15/2022 3:35 AM UPFITTER EKG 12-LEAD Routine 02/15/2022 12:55 AM UPFITTER Syncope and collapse TSH REFLEX FREE T4 STAT 02/14/2022 11 :55 PM UPFITTER TROPONIN I STAT 02/14/2022 11:55 PM UPFITTER CBC W AUTO DIFFERENTIAL STAT 02/14/2022 11:55 PM UPFITTER COMPREHENSIVE METABOLIC PANEL STAT 02/14/2022 11:55 PM UPFITTER XR CHEST 1VW PORTABLE STAT 02/14/2022 11:25 PM UPFITTER Syncope and collapse documented in this encounter Results * CORTISOL BLOOD AM (02/19/2022 5:36 AM UPFITTER) [facility] Cortisol AM 5.4 3.7 - 19.4 ug/dL 02/19/2022 6:54 AM UPFITTER [facility] Blood BLOOD SPECIMEN / Unknown Lab Venipuncture / Unknown 02/19/2022 5:36 AM UPFITTER 02/19/2022 6:06 AM UPFITTER Narrative [facility] - 02/19/2022 6:54 AM UPFITTER Normal cortisol levels are generally highest in the morning hours and lowest from late evening through the early intervention specialist 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 ??The PM measurements of cortisol run approximately one-half to one-third of the AM values. Meet Flores PA-C LAB - CHEMISTRY ORDERABLES Performing Organization Address [facility] de Phone Number [address] [address], [facility] [phone] * CORTISOL BLOOD AM (02/19/2022 5:35 AM [facility]) Cortisol AM 5.8 3.7 - 19.4 ug/dL 02/19/2022 6:27 AM [facility] Blood BLOOD SPECIMEN / Unknown Lab Venipuncture / Unknown 02/19/2022 5:35 AM UPFITTER 02/19/2022 5:35 AM [facility] Narrative [facility] - 02/19/2022 6:27 AM UPFITTER Normal cortisol levels are generally highest in the morning hours and lowest from late evening through the early intervention specialist 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 ??The PM measurements of cortisol run approximately one-half to one-third of the AM values. Meet Flores PA-C LAB - CHEMISTRY ORDERABLES Performing Organization Address [facility] de Phone Number [address] [address], [facility] [phone] * (ABNORMAL) BASIC METABOLIC PANEL (CALCIUM TOTAL) (02/19/2022 4:29 AM [facility]) BUN 18 7 - 26 mg/dL 02/19/2022 [...] Lab Venipuncture / Unknown 02/19/2022 4:29 AM UPFITTER 02/19/2022 4:39 AM UPFITTER Meet Flores PA-C LAB - CHEMISTRY ORDERABLES [address] [address], [facility] [phone] * CORTISOL BLOOD AM (02/19/2022 4:29 AM UPFITTER) Cortisol AM 6.9 3.7 - 19.4 ug/dL 02/19/2022 5:23 AM [facility] Blood BLOOD SPECIMEN / Unknown Lab Venipuncture / Unknown 02/19/2022 4:29 AM UPFITTER 02/19/2022 4:38 AM UPFITTER Narrative [facility] - 02/19/2022 5:23 AM UPFITTER Normal cortisol levels are generally highest in the morning hours and lowest from late evening through the early intervention specialist 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 ??The PM measurements of cortisol run approximately one-half to one-third of the AM values. Meet C Mark PA-C LAB - CHEMISTRY ORDERABLES [facility] [address] [place] [address], [place] [phone] * (ABNORMAL) BASIC METABOLIC PANEL (CALCIUM TOTAL) (02/18/2022 12:18 PM [facility]) BUN 19 7 - 26 mg/dL 02/18/2022 [...] Lab Venipuncture / Unknown 02/18/2022 12:18 PM UPFITTER 02/18/2022 12:34 PM [facility] Meet lFores PA-C LAB - CHEMISTRY ORDERABLES [facility] [address] [place] [address], [place] [phone] * (ABNORMAL) BASIC METABOLIC PANEL (CALCIUM TOTAL) (02/18/2022 6:58 AM UPFITTER) BUN 19 7 - 26 mg/dL 02/18/2022 [...] Lab Venipuncture / Unknown 02/18/2022 6:58 AM UPFITTER 02/18/2022 7:41 AM [facility] Meet Flores PA-C LAB - CHEMISTRY ORDERABLES [facility] [address] [place] [address], [facility] [phone] * OSMOLALITY URINE (02/17/2022 2:08 PM UPFITTER) Osmolality Urine 234 50 - 1,200 mOsm/kg 02/17/2022 3:23 PM [facility] Urine URINE SPECIMEN OBTAINED BY CLEAN CATCH PROCEDURE / Unknown Collection / Unknown 02/17/2022 2:08 PM UPFITTER 02/17/2022 2:13 PM UPFITTER Narrative [facility] - 02/17/2022 3:23 PM UPFITTER QRY Meet Flores PA-C LAB - URINE CHEM ISTRY ORDERABLES Performing Organization Address City/[facility]/ZIP Co de Phone Number [address] [address], [facility] [phone] * SODIUM URINE RANDOM (02/17/2022 2:08 PM UPFITTER) Sodium Urine 55 Not Established mmol/L 02/17/2022 2:30 PM [facility] Urine URINE SPECIMEN OBTAINED BY CLEAN CATCH PROCEDURE / Unknown Collection / Unknown 02/17/2022 2:08 PM UPFITTER 02/17/2022 2:13 PM UPFITTER Meet Flores PA-C LAB - URINE CHEM ISTRY ORDERABLES Performing Organization Address [facility]/ZIP Co de Phone Number [address] [address], [place] [phone] * (ABNORMAL) CBC W/O DIFFERENTIAL (02/17/2022 6:12 AM UPFITTER) WBC 5.8 3.5 - 10.5 10? 3 [...] Lab Venipuncture / Unknown 02/17/2022 6:12 AM UPFITTER 02/17/2022 6:48 AM [facility] Meet Flores PA-C LAB - HEMATOLOGY ORDERABLES Performing Organization Address City/State/[place] Co de Phone Number [facility] [address] [place] [phone], [facility] [phone] * (ABNORMAL) BASIC METABOLIC PANEL (CALCIUM TOTAL) (02/17/2022 6:12 AM [facility]) BUN 21 7 - 26 mg/dL 02/17/2022 [...] Lab Venipuncture / Unknown 02/17/2022 6:12 AM UPFITTER 02/17/2022 6:48 AM UPFITTER Meet Flores PA-C LAB - CHEMISTRY ORDERABLES [facility] [address] [place] [address], [facility] [phone] * MRI CERVICAL SPINE WO CONTRAST (02/16/2022 7:19 PM UPFITTER) Anatomical Region Laterality Modality Pelvis Magnetic Resonan ce 02/18/2022 1:46 PM UPFITTER Impressions 02/18/2022 2:03 PM UPFITTER IMPRESSION: 1. Degenerative changes of the spine [...] 02/18/2022 2:03 PM Narrative 02/18/2022 2:03 PM UPFITTER PROCEDURE: ??MRI CERVICAL SPINE WO CONTRAST, DATE/TIME OF EXAM: ??02/16/2022 7:20 PM, LOCATION ??[facility] INDICATION: M50.30: Degeneration of cervical [...] CONTRAST, DATE/TIME OF EXAM:02/16/2022 7:20 PM, LOCATION [facility] INDICATION: M50.30: Degeneration of cervical [...] (ABNORMAL) CBC W/O DIFFERENTIAL (02/16/2022 7:57 AM UPFITTER) [facility] WBC 5.7 3.5 - 10.5 10? 3 /uL 02/16/2022 8:26 AM UPFITTER [facility] RBC 3.51(L) 3.80 - 5.20 10? [...] Lab Venipuncture / Unknown 02/16/2022 7:57 AM [facility] 02/16/2022 8:15 AM [facility] Meet Flores PA-C LAB - HEMATOLOGY ORDERABLES [facility] [address] [place] [address], [facility] [phone] * HEMOGLOBIN A1C (02/16/2022 7:57 AM [facility]) Hemoglobin A1c 5.1 <=5.6 % 02/16/2022 11:17 AM UPFITTER [facility] Estimated Average Glucose 100 mg/dL 02/16/2022 11:17 AM UPFITTER [facility] Comment: HbA1c Interpretation: Normal : < 5.7% Pre-diabetes: 5.7-6.4% Diabetes: Equal to or greater than 6.5% Test results diagnostic of diabetes should be repeated for confirmation. Treatment target values recommended by ADA and other clinical organizations should be used to evaluate metabolic control in patients. Reference: [place] [employer], Standards of Care in Diabetes -2020 In patients 70 years and older consider HbA1c target range of 7.0-7.5% (Reference: Oswaldo Liz et al. JAMDA. 2012) The Sebia assay for the measurement of HbA1c is a National Glycohemoglobin Standardization Program (NGSP) certified method. Blood BLOOD SPECIMEN / Unknown Lab Venipuncture / Unknown 02/16/2022 7:57 AM UPFITTER 02/16/2022 8:14 AM UPFITTER Meet Flores PA-C LAB - CHEMISTRY ORDERABLES Performing Organization Address City/[facility]/ZIP Co de Phone Number [address] [address], [facility] [phone] * TSH REFLEX FREE T4 (02/16/2022 7:57 AM UPFITTER) TSH 1.522 0.350 - 4.940 uIU/mL 02/16/2022 9:01 AM [facility] Blood BLOOD SPECIMEN / Unknown Lab Venipuncture / Unknown 02/16/2022 7:57 AM UPFITTER 02/16/2022 8:15 AM UPFITTER Dagoberto Ordoñez MD LAB - CHEMISTRY ORDERABLES [address] [address], [facility] [phone] * MAGNESIUM BLOOD (02/16/2022 7:57 AM UPFITTER) Magnesium 1.8 1.6 - 2.6 mg/dL 02/16/2022 8:43 AM UPFITTER [facility] Blood BLOOD SPECIMEN / Unknown Lab Venipuncture / Unknown 02/16/2022 7:57 AM [facility] 02/16/2022 8:15 AM UPFITTER Dagoberto Ordoñez MD LAB - CHEMISTRY ORDERABLES [facility] [address] [place] [address], [facility] [phone] * (ABNORMAL) RENAL FUNCTION PANEL (02/16/2022 7:57 AM [facility]) BUN 27(H) 7 - 26 mg/dL 02/16/2022 [...] Lab Venipuncture / Unknown 02/16/2022 7:57 AM UPFITTER 02/16/2022 8:15 AM UPFITTER Dagoberto Ordoñez MD LAB - CHEMISTRY ORDERABLES [facility] [address] [place] [address], [place] [phone] * GLUCOSE - POINT OF CARE (02/16/2022 6:57 AM UPFITTER) Glucose WB/POC 112 70 - 115 mg/dL 02/16/2022 6:59 AM UPFITTER [facility] Specimen Type Cap Fingerstick 2021 6:59 AM UPFITTER [facility] Blood BLOOD SPECIMEN / Unknown 02/16/2022 6:57 AM UPFITTER 02/16/2022 6:59 AM UPFITTER Marii Light MD LAB - POINT OF CAR E ORDERABLES [facility] [address] [place] [address], [place] [phone] * GLUCOSE - POINT OF CARE (02/16/2022 1:53 AM UPFITTER) Glucose WB/POC 80 70 - 115 mg/dL 02/16/2022 1:58 AM UPFITTER [facility] Specimen Type Cap Fingerstick 2021 1:58 AM UPFITTER [facility] Blood BLOOD SPECIMEN / Unknown 02/16/2022 1:53 AM UPFITTER 02/16/2022 1:57 AM UPFITTER Marii Light MD LAB - POINT OF CAR E ORDERABLES [facility] [address] [place] [address], [place] [phone] * CT CERVICAL SPINE WO CONTRAST (02/15/2022 10:41 PM UPFITTER) Anatomical Region Laterality Modality Spine Computed Tomogra phy 02/16/2022 2:09 AM UPFITTER Impressions 02/16/2022 2:29 AM UPFITTER IMPRESSION: 1.No acute fracture or traumatic malalignment [...] 02/16/2022 2:29 AM Narrative 02/16/2022 2:29 AM UPFITTER PROCEDURE: ??CT CERVICAL SPINE WO CONTRAST, DATE/TIME OF EXAM: ??02/15/2022 10:41 PM, LOCATION ??[facility] INDICATION: S02.92XA: Multiple closed fractures of facial bone, initial encounter ([facility]) ADDITIONAL CLINICAL INFORMATION: Ordering Provider [...] CONTRAST, DATE/TIME OF EXAM:02/15/2022 10:41 PM, LOCATION [facility] INDICATION: S02.92XA: Multiple closed fractures of facial bone, initial encounter ([facility]) ADDITIONAL CLINICAL INFORMATION: Ordering Provider [...] left C3-C5 facets, right C3-C4 facets, and C3-X3uebemru processes. DISCS: Osseous fusion of the C3-C5 [...] in moderate spinal canal stenosis at the C5-L1tihfs and mild spinal canal stenosis at the C3-C4, C6-C7, and C7-T1 levels. 3.Severe bilateral neuroforaminal narrowing at the C5-C6 level. > Interpreting Provider: Barbara Wallace DR on 02/16/2022 2:29 AM Meet Flores PA-C CT ORDERABLES * GLUCOSE - POINT OF CARE (02/15/2022 8:42 PM UPFITTER) Glucose WB/POC 92 70 - 115 mg/dL 02/15/2022 8:47 PM UPFITTER [facility] Specimen Type Cap Fingerstick 2021 8:47 PM UPFITTER [facility] Blood BLOOD SPECIMEN / Unknown 02/15/2022 8:42 PM UPFITTER 02/15/2022 8:47 PM UPFITTER Marii Light MD LAB - POINT OF CAR E ORDERABLES [facility] [address] [place] [address], [facility] [phone] * (ABNORMAL) GLUCOSE - POINT OF CARE (02/15/2022 6:52 PM UPFITTER) Glucose WB/POC 134(H) 70 - 115 mg/dL 02/15/2022 6:57 PM UPFITTER [facility] Specimen Type Arterial 02/15/2022 6:57 PM UPFITTER [facility] Blood BLOOD SPECIMEN / Unknown 02/15/2022 6:52 PM UPFITTER 02/15/2022 6:57 PM UPFITTER Marii Light MD LAB - POINT OF CAR E ORDERABLES [facility] [address] [place] [address], [facility] [phone] * SARS-COV-2 (COVID-19)+INFLU A+B PCR RAPID (02/15/2022 3:07 PM UPFITTER) COVID-19 PCR Not detected Not detected 02/16/20 3:59 PM UPFITTER [facility] Influenza A Rapid WENDI Not Detected Not Detected 02/15/2022 3:59 PM UPFITTER [facility] Influenza B WENDI Rapid Not Detected Not Detected 02/15/2022 3:59 PM UPFITTER [facility] Microbiology SPECIMEN FROM NASOPHARYNGEAL STRUCTURE / Unknown Collection / Unknown 02/15/2022 3:07 PM UPFITTER 02/15/2022 3:10 PM UPFITTER Narrative [facility] - 02/15/2022 3:59 PM UPFITTER Influenza assay performed by [employer]. [...] acid amplification assay performance was validated by [facility]. This test has been authorized by the [...] - MICROBIOLOGY O RDERABLES Performing Organization Address [facility]/ZIP Co de Phone Number [address] [address], [facility] [phone] * VAS CAROTID DUPLEX BILATERAL (02/15/2022 1:56 PM UPFITTER) Anatomical Region Laterality Modality Neck Intravascular Ul trasound 02/15/2022 12:0 2 PM UPFITTER Narrative Procedure Note Adolph Pineda MD - 02/16/2022 Dagoberto Ordoñez MD VASCULAR LAB ORD ERABLES * GLUCOSE - POINT OF CARE (02/15/2022 12:00 PM UPFITTER) Glucose WB/POC 85 70 - 115 mg/dL 02/15/2022 12:08 PM UPFITTER [facility] Specimen Type Cap Fingerstick 2021 12:08 PM UPFITTER [facility] Blood BLOOD SPECIMEN / Unknown 02/15/2022 12:00 PM UPFITTER 02/15/2022 12:08 PM UPFITTER Abeba Will DO LAB - POINT OF CARE ORDERABLES Performing Organization Address [facility]/ZIP Co de Phone Number [address] [address], [facility] [phone] * CARDIAC EKG ORDER (02/15/2022 11:30 AM UPFITTER) Narrative 02/15/2022 11:30 AM UPFITTER Ordered by an unspecified provider. Scanned Document CARDIAC SERVICES ORD ERABLES * ECHO COMPLETE (02/15/2022 11:27 AM UPFITTER) Anatomical Region Laterality Modality Chest Echo 02/15/2022 10:2 8 AM UPFITTER Narrative Procedure Note Corey Flowers MD - 02/15/2022 Dagoberto Ordoñez MD ECHOCARDIOGRAPHY RADIANT * (ABNORMAL) URINALYSIS REFLEX TO MICROSCOPIC NO CULTURE (02/15/2022 3:35 AM UPFITTER) Color UA Straw Straw, Yellow 02/15/2022 3:47 AM [facility] Clarity UA Clear Clear 02/15/2022 3:47 AM [facility] Specific [place] UA 1.008 1.005 - 1.030 02/15/2022 3:47 [...] Unknown Collection / Unknown 02/15/2022 3:35 AM UPFITTER 02/15/2022 3:37 AM [facility] - 02/15/2022 3:47 AM UPFITTER Justo Sparrow MD LAB - URINALYSIS ORD ERABLES Performing Organization Address [facility]/ZIP Co de Phone Number [facility] [address] [place] [address], [facility] [phone] * EKG 12-LEAD (02/15/2022 12:55 AM UPFITTER) Ventricular Rate 73 BPM [facility] MUSE Atrial Rate 73 BPM [facility] MUSE P-R Interval 152 ms [facility] MUSE QRS Duration ms 78 ms [facility] MUSE Q-T Interval ms 372 ms [facility] MUSE QTC Calculation (Bezet) 409 ms SL MUSE Calculated P [place] 35 degrees SL MUSE Calculated R [place] 34 degrees [facility] MUSE Calculated T [place] 60 degrees [facility] MUSE Interpretation EKG NORMAL SINUS RHYTHM NORMAL ECG NO PREVIOUS ECGS AVAILABLE Confirmed by MENDEL LUNA MD ([id number]) on 02/15/2022 9:57:52 AM [facility] 02/15/2022 12:5 5 AM UPFITTER 02/15/2022 9:57 AM UPFITTER Justo Sparrow MD ECG ORDERABLES Performing Organization Address [facility]/[place] Co de Phone Number [facility] * TROPONIN I (02/14/2022 11:55 PM UPFITTER) Pathologist [facility] Troponin I 0.027 <0.032 ng/mL 02/15/2022 12:31 AM UPFITTER [facility] Blood BLOOD SPECIMEN / Unknown Venipuncture / Unknown 02/14/2022 11:55 PM UPFITTER 02/14/2022 11:58 PM UPFITTER Justo Sparrow MD LAB - CHEMISTRY ORDE RABLES Performing Organization Address [facility]/ZIP Co de Phone Number [facility] [address] [place] [address], [place] [phone] * TSH REFLEX FREE T4 (02/14/2022 11:55 PM UPFITTER) Pathologist [facility] TSH 0.749 0.350 - 4.940 uIU/mL 02/15/2022 12:44 AM [facility] Blood BLOOD SPECIMEN / Unknown Venipuncture / Unknown 02/14/2022 11:55 PM UPFITTER 02/14/2022 11:58 PM UPFITTER Justo Sparrow MD LAB - CHEMISTRY CHELO QUIG[facility] Organization Address City/State/ZIP Co de Phone Number [facility] [address] [place] [address], [facility] [phone] * (ABNORMAL) COMPREHENSIVE METABOLIC PANEL (02/14/2022 11:55 PM UPFITTER) BUN 33(H) 7 - 26 mg/dL 02/15/2022 [...] Unknown Venipuncture / Unknown 02/14/2022 11:55 PM UPFITTER 02/14/2022 11:58 PM UPFITTER Justo Sparrow MD LAB - CHEMISTRY CHELO QUIG[facility] Organization Address City/State/ZIP Co de Phone Number [facility] [address] [place] [phone] [phone] * (ABNORMAL) CBC W AUTO DIFFERENTIAL (02/14/2022 11:55 PM UPFITTER) WBC 9.5 3.5 - 10.5 10? 3 [...] 0.0 - 1.0 % 02/15/2022 12:08 AM UPFITTER [facility] Immature Granulocytes Absolute 0.04 02/15/2022 12:08 AM UPFITTER [facility] Blood BLOOD SPECIMEN / Unknown Venipuncture / Unknown 02/14/2022 11:55 PM UPFITTER 02/14/2022 11:58 PM UPFITTER Justo Sparrow MD LAB - HEMATOLOGY ORD ERABLES Performing Organization Address [facility]/State/ZIP Co de Phone Number [facility] [address] [place] [address], [facility] [phone] * XR CHEST 1VW PORTABLE (02/14/2022 11:25 PM UPFITTER) Anatomical Region Laterality Modality Chest Radiographic Vivian ging 02/14/2022 11:2 4 PM UPFITTER Narrative 02/15/2022 9:10 AM UPFITTER PROCEDURE: ??XR CHEST 1VW PORTABLE, DATE/TIME OF EXAM: ??02/14/2022 11:25 PM, LOCATION ??[facility] INDICATION: R55: Syncope and collapse [...] > Dictated by Sushil Herrera MD (residential finish carpenter). I, Tony Hansen MD have personally reviewed and interpreted this examination/study. > Interpreting Provider: Tony Hansen MD on 02/15/2022 9:10 AM Procedure Note Tony Hansen MD - 02/15/2022 PROCEDURE: XR CHEST 1VW PORTABLE, DATE/TIME OF EXAM: 02/14/2022 11:25PM, LOCATION [facility] INDICATION: R55: Syncope and collapse [...] > Dictated by Sushil Herrera MD (residential finish carpenter). I, Tony Hansen MD have personally reviewed [...] before administration. $ Given 02/15/2022 11:23 AM UPFITTER 10 mL $ Given 02/15/2022 11:09 AM UPFITTER 10 mL 0.9% NaCl injection 3 mL 3 mL, Intracatheter, EVERY 8 HOURS, First dose on Jeanette 02/15/22 at 0600, Until Discontinued, Flush peripheral IV catheter with 3 mL of normal saline every 8 hours. $ Given 02/19/2022 5:39 AM UPFITTER 3 mL $ Given 02/18/2022 10:24 PM UPFITTER 3 mL $ Given 02/18/2022 1:46 PM UPFITTER 3 mL 0.9% NaCl IV bolus 500 mL, at 967.74 mL/hr, Administer over 31 Minutes, ONCE, 1 dose, On Jeanette 02/15/22 at 1045 $ Bolus New Bag 02/15/2022 10:20 AM UPFITTER 500 mL 967.74 mL/hr acetaminophen (Tylenol) tablet [...] the MAR. $ Given 02/19/2022 8:36 AM UPFITTER 650 mg $ Given 02/17/2022 8:56 AM UPFITTER 650 mg $ Given 02/16/2022 10:57 PM UPFITTER 650 mg buPROPion XL 24hr (Wellbutrin-XL) tablet 150 mg 150 mg, Oral, DAILY, First dose on Jeanette 02/15/22 at 0900, Until Discontinued, Do not crush, chew, or cut in half. $ Given 02/19/2022 8:37 AM UPFITTER 150 mg $ Given 02/18/2022 8:59 AM UPFITTER 150 mg $ Given 02/17/2022 8:54 AM UPFITTER 150 mg calcitriol (Rocaltrol) capsule 0.25 mcg 0.25 mcg, Oral, EVERY MON, WED AND SAT, First dose on Sat02/16/22 at 1700, Until Discontinued $ Given 02/16/2022 4:04 PM UPFITTER 0.25 mcg citalopram (CeleXA) tablet 20 mg 20 mg, Oral, DAILY, First dose on Jeanette 02/15/22 at 0900, Until Discontinued $ Given 02/19/2022 8:37 AM UPFITTER 20 mg $ Given 02/18/2022 8:59 AM UPFITTER 20 mg $ Given 02/17/2022 8:54 AM UPFITTER 20 mg cosyntropin (Cortrosyn) injection 0.25 mg 0.25 mg, Intravenous, ONCE, 1 dose, On Sat02/19/22 at 0430, Do not administer until after baseline cortisol level has been drawn. IntraMUSCular injection reconstitute with 1 mL NS IntraVENous injection dilute in 2 to 5 mL of NS, inject over 2 min $ Given 02/19/2022 5:39 AM UPFITTER 0.25 mg dextrose 10 % IV bolus [...] laceration area $ Given 02/19/2022 1:46 PM UPFITTER $ Given 02/19/2022 8:42 AM UPFITTER $ Given 02/18/2022 8:20 PM UPFITTER escitalopram (Lexapro) tablet 20 mg 20 mg, Oral, DAILY, First dose on Sat02/15/22 at 0900, Until Discontinued $ Given 02/19/2022 8:38 AM UPFITTER 20 mg $ Given 02/18/2022 8:59 AM UPFITTER 20 mg $ Given 02/17/2022 8:54 AM UPFITTER 20 mg furosemide (Lasix) tablet 10 mg 10 mg, Oral, DAILY, First dose on Sat02/15/22 at 0900, Until Discontinued $ Given 02/19/2022 8:38 AM UPFITTER 10 mg $ Given 02/17/2022 8:54 AM UPFITTER 10 mg $ Given 02/15/2022 8:21 AM UPFITTER 10 mg heparin injection 5,000 Units 5,000 Units, Subcutaneous, 3 TIMES DAILY, First dose on Sat02/15/22 at 1400, Until Discontinued $ Given 02/19/2022 8:35 AM UPFITTER 5,000 Units Abd Right Lower Quadrant $ Given 02/18/2022 8:20 PM UPFITTER 5,000 Units A bd Left Lower Quadrant $ Given 02/18/2022 1:46 PM UPFITTER 5,000 Units R ight Arm latanoprost (Xalatan) 0.005 % ophthalmic solution 1 drop 1 drop, Each Eye, AT BEDTIME, First dose on Sat02/16/22 at 2100, Until Discontinued, Allow at least 5 minutes between administration of multiple ophthalmic products Once opened, store at room temperature $ Given 02/18/2022 8:20 PM UPFITTER 1 drop $ Given 02/17/2022 8:12 PM UPFITTER 1 drop $ Given 02/16/2022 11:55 PM UPFITTER 1 drop loratadine (Claritin) tablet 10 mg 10 mg, Oral, DAILY, First dose on Sat02/17/22 at 1130, Until Discontinued $ Given 02/19/2022 8:37 AM UPFITTER 10 mg $ Given 02/18/2022 8:59 AM UPFITTER 10 mg $ Given 02/17/2022 12:24 PM UPFITTER 10 mg ondansetron (disintegrating) (Zofran ODT) tablet [...] the MAR. $ Given 02/18/2022 11:43 PM UPFITTER 5 mg $ Given 02/18/2022 5:28 PM UPFITTER 5 mg $ Given 02/18/2022 1:48 PM UPFITTER 5 mg pantoprazole EC (Protonix) tablet 40 mg 40 mg, Oral, DAILY, First dose on Jeanette 02/15/22 at 1300, Until Discontinued, Do not crush, chew, or cut in half. $ Given 02/19/2022 8:38 AM UPFITTER 40 mg $ Given 02/18/2022 8:59 AM UPFITTER 40 mg $ Given 02/17/2022 8:54 AM UPFITTER 40 mg perflutren lipid microsphere (Definity) injection 0.5 mL 0.5 mL, Intravenous, INTRA-PROCEDURE MULTIPLE, 6 doses, Starting on Jeanette 02/15/22 at 1108, Until Sat02/19/22 at 1528, For Echo Procedure - Per Protocol Give slowly Shake well before using. $ Given 02/15/2022 11:12 AM UPFITTER 0.5 mL QUEtiapine (SEROquel) tablet 200 mg 200 mg, Oral, DAILY, First dose on Jeanette 02/15/22 at 0900, Until Discontinued $ Given 02/19/2022 8:37 AM UPFITTER 200 mg $ Given 02/18/2022 8:59 AM UPFITTER 200 mg $ Given 02/17/2022 8:54 AM UPFITTER 200 mg sodium chloride tablet 2 g 2 g, Oral, 3 TIMES DAILY WITH MEALS, First dose on Sat02/18/22 at 0900, Until Discontinued $ Given 02/19/2022 11:14 AM UPFITTER 2 g $ Given 02/19/2022 8:37 AM UPFITTER 2 g $ Given 02/18/2022 5:28 PM UPFITTER 2 g documented in this encounter Active and Recently Administered Medications Times are shown in UPFITTER. Scheduled Medication Order 02/17/2022 02/18/2022 02/19/2022 0.9% [...] RN) 0529 ($ Given - Provider: Tyson mAado RN)1346 ($ Given - Provider: Victoria Cormier [...] Provider: Tyson Amado, SANTI) saline nasal spray ([place]; Baby [place]) 0.65 % nasal spray 1 spray 1 [...] Under Investigation 02/15/2022 02/15/2022 02/15/2022 3:59 PM UPFITTER documented as of this encounter
--- OUTSIDE RECORDS SUMMARY | 2024-04-11 13:18 | XMS_ITS | Encounter Summary ---
Author Organization [facility] Address Critical access hospital6 [place] [address] [place] [address] Care Team Providers Care Cnc Lathe Machinist Name Role Phone Md Generic Willa HANEY Primary Care Provider Unavailable Miah Haney MD Primary Care Provider Unavailable Md Generic Willa HANEY Primary Care Provider Unavailable Encounter Details Date Type Department Care Team (Late st Contact Info) Description 10/21/2008 Abstract [facility] [place] [address] Adi Vieira MD [address] [place] [address] Social History Tobacco Use Types Packs/Day Years [...] on filedocumented in this encounter Care Teams Cnc Lathe Machinist Relationship Specialty Start Date End Date Miah Haney MD PCP - General 12/31/12 Miah Haney MD PCP - General 10/13/12 Miah Haney MD PCP - General 09/15/10 documented as of this encounter
--- OUTSIDE RECORDS SUMMARY | 2024-04-11 13:18 | XMS_ITS | Encounter Summary ---
Author Organization [facility] Address [facility]6 [facility]. [place], [place] [address] [place] [address] Care Team Providers Care Digital Account Manager Name Role Phone None, Provider Primary Care [...] Coronavirus/COVID-19? No / Unsure 05/27/2022 1:34 PM PLASTIC SURGERY SPECIALIST documented as of this encounter Plan of Treatment Not on file documented as of this encounter Visit Diagnoses Not on filedocumented in this encounter Care Teams Digital Account Manager Relationship Specialty Start Date End Date None, Provider, PCP - General UNKNOWN PHYSICIAN SPECIALTY 05/27/22 documented as of this encounter
--- OUTSIDE RECORDS SUMMARY | 2024-04-11 13:18 | XMS_ITS | Encounter Summary ---
Author Organization [facility] Address Psychiatric hospital6 [place] [address] [place] [address] Care Team Providers Care Loader Unloader Name Role Phone Md Generic Willa HANEY Primary Care Provider Unavailable Miah Haney MD Primary Care Provider Unavailable Md Generic Conversion Primary Care Provider Unavailable Encounter Details Date Type Department Care Team (Late st Contact Info) Description 01/08/2008 Abstract [facility] Cardiology EKG [address] [place] [address] Petar Barber MD [facility] [address] [address] Social History Tobacco Use Types Packs/Day Years [...] on filedocumented in this encounter Care Teams Loader Unloader Relationship Specialty Start Date End Date Miah Haney MD PCP - General 12/31/12 Miah Haney MD PCP - General 10/13/12 Miah Haney MD PCP - General 09/15/10 documented as of this encounter
--- OUTSIDE RECORDS SUMMARY | 2024-04-11 13:18 | XMS_ITS | Encounter Summary ---
Author Organization [facility] Address [facility] [place] [address] [place] [address] Care Team Providers Care Baker Pie Name Role Phone Md Generic Willa HANEY Primary Care Provider Unavailable Miah Haney MD Primary Care Provider Unavailable Md Generic Willa HANEY Primary Care Provider Unavailable Encounter Details Date Type Department Care Team (Late st Contact Info) Description 09/10/2008 Abstract [facility] [place] [address] Adi Vieira MD [address] [place] [address] Social History Tobacco Use Types Packs/Day Years [...] on filedocumented in this encounter Care Teams Baker Pie Relationship Specialty Start Date End Date Miah Haney MD PCP - General 12/31/12 Miah Haney MD PCP - General 10/13/12 Miah Haney MD PCP - General 09/15/10 documented as of this encounter
--- OUTSIDE RECORDS SUMMARY | 2024-04-11 13:19 | XMS_ITS | Encounter Summary ---
Author Organization [facility] Address [facility] [address] [address] Phone Care Team Providers Care Plumbing Assembler Name Role Phone Karrie Tompkins MD Primary Care Provider [phone] Reason for Visit * Reason Comments Med Refill Encounter Details Date Type Department Care Team (Late st Contact Info) Description 02/12/2022 Refill [facility] Nephrology and Hypertension [address] [place] [address], [address] [place] [address] Aubrey Reyna MD [address] [facility], [address] [place] [address] Social History Tobacco Use Types Packs/Day Years [...] on filedocumented in this encounter Care Teams Plumbing Assembler Relationship Specialty Start Date End Date Karrie Tompkins MD [address] [place] [address] [place] [id number] PCP - General 09/07/18 documented as of this encounter
--- OUTSIDE RECORDS SUMMARY | 2024-04-11 13:19 | XMS_ITS | Encounter Summary ---
Author Organization [facility] Address [address], [place] [address] Phone Care Team Providers Care Trauma Surgeon Name Role Phone Karrie Tompkins MD Primary Care Provider [phone] Encounter Details Date Type Department Care Team (Late st Contact Info) Description 04/26/2021 1:15 PM PATHOLOGY LABORATORY DIRECTOR Office Visit [facility] Nephrology and Hypertension [address] [place] [address], [address] [place] [address] Aubrey Reyna MD [address] [facility], [address] [place] [address] Chronic kidney disease stage 3B (CMS-HCC); Diabetes [...] Comments Blood Pressure 128/64 04/26/2021 1:03 PM PATHOLOGY LABORATORY DIRECTOR Pulse - - Temperature 35 ??C (95 ??F) 04/26/2021 1:03 PM PATHOLOGY LABORATORY DIRECTOR Respiratory Rate 18 04/26/2021 1:03 PM PATHOLOGY LABORATORY DIRECTOR Oxygen Saturation - - Inhaled Oxygen Concentration - - Weight 67.1 kg (148 lb) 04/26/2021 1:03 PM PATHOLOGY LABORATORY DIRECTOR Height 154.9 cm (5' 1 ) 04/26/2021 1:03 PM PATHOLOGY LABORATORY DIRECTOR Body Mass Index 27.96 04/26/2021 1:03 PM PATHOLOGY LABORATORY DIRECTOR documented in this encounter Progress Notes * [...] , Rfl: ??? Lancets (OneTouch Delica Plus [id number]) [facility], , Disp: , Rfl: ??? latanoprost (XALATAN) [...] ASSESSMENT 1. Chronic kidney disease stage 3B ([facility]) 2. Diabetes mellitus with renal manifestations ([facility]) 3. Benign hypertension with chronic [...] D3, Serum/Plasma 58 30 - 100 ng/mL [facility] (STL) Comment: (Note) Vitamin D, [...] 2011;96(7):1911-30. ??For additional information, please refer to ??http://[facility]/faq/HHE200 Cholecalciferol (Vitamin D3), Serum/Plasma 58 ng/mL [facility] (STL) Comment:Reference range: Not established Calciferol (Vitamin D2), Serum/Plasma <4.0 ng/mL [facility] (STL) Comment: (Note) Reference range: Not established This test was developed and its analytical performance characteristics have been determined by [employer]. It has not been cleared or approved by the US Food and Drug Administration. This assay has been validated pursuant to the CLIA regulation and is used for Clinical purposes. [facility] [address] [address],[address] [facility] [address] Iban Hoffman MD See Note 1 Note 1 For additional information, please refer to http://[facility]/faq/THS908 (This link is being provided for informational/ educational purposes only.) Blood (Blood, Venous) 07/26/2021 8:06 AM CDT 07/26/2021 8:06 AM CDT Narrative Resulting Agency Comment Performing Organization Information: ?Site ID: [id number] ?Name: [facility] ?Address: [address] [place] [address], [address] [place] [address] ?Director: Iban Hoffman MD Aubrey Reyna MD LAB BLOOD ORDERABLES [facility] [place] (ST) * (ABNORMAL) PTH Intact w/o Calcium, Serum (07/26/2021 8:06 AM CDT) PTH, Intact, Serum/Plasma 157(H) 16 - 77 pg/mL [facility] [place] ([facility]L) Comment: Interpretive Guide ?Intact [...] Performing Organization Information: ?Site ID: [id number] ?Name: [employer] ?Address: [facility] [place] [address] ?Director: Hakeem Jenkins D.O., MPH Aubrey Reyna MD LAB BLOOD ORDERABLES Performing Organization Address [facility] Co de Phone Number [facility] [place] (STL) * (ABNORMAL) Total Protein w/ Creatinine, Urine, Random (07/26/2021 8:06 AM CDT) Creatinine, Urine 123 20 - 275 mg/dL [facility] [place] (ST[facility]) Protein/Creati nine, Urine 179(H) 21 - 161 mg/g creat [facility] - [facility] [place] (ST[facility]) Protein/Creati nine, Urine 0.179(H) 0.021 - 0.161 mg/mg creat [facility] [place] (STL) Protein, Urine 22 5 - 24 mg/dL [facility] [place] (STL) 07/26/2021 8:06 AM CDT 07/26/2021 8:06 AM CDT Narrative Resulting Agency Comment Performing Organization Information: ?Site ID: BRANT ?Name: [employer] ?Address: [facility] [place] [address] ?Director: Hakeem Jenkins D.O., MPH Aubrey Reyna MD LAB URINE ORDERABLES Performing Organization Address [facility] Co de Phone Number [facility] [place] (STL) * (ABNORMAL) Renal Function Panel (RFP) (07/26/2021 8:06 AM CDT) Glucose, Serum/Plasma 128(H) 65 - 99 mg/dL [facility] [place] (ST[facility]) Comment: ? Fasting reference interval For someone without known diabetes, a glucose value >125 mg/dL indicates that they may have diabetes and this should be confirmed with a follow-up test. Urea nitrogen, Serum/Plasma (BUN) 19 7 - 25 mg/dL [facility] (STL) Creatinine, Serum/Plasma 1.73(H) 0.60 - 0.93 mg/dL [facility] [place] ([facility]) Comment: For patients >49 years of age, the reference limit for Creatinine is approximately 13% higher for people identified as -Australian. eGFR, non 29(L) > OR = 60 mL/min/1. 73m2 [facility] [place] (STL) eGFR, 34(L) > OR = 60 mL/min/1. 73m2 [facility] [place] (STL) Urea nitrogen/Creatinin e, Serum/Plasma 11 6 - 22 (calc) [facility] [place] (STL) Sodium, Serum/Plasma 130(L) 135 - 146 mmol/L [facility] [place] (STL) Potassium, Serum/Plasma 4.8 3.5 - 5.3 mmol/L [facility] [place] (STL) Chloride, Serum/Plasma 96(L) 98 - 110 mmol/L [facility] [place] (STL) Carbon dioxide CO2), total, Serum/Plasma 26 20 - 32 mmol/L [facility] [place] (STL) Calcium, Serum/Plasma 8.7 8.6 - 10.4 mg/dL [facility] (STL) Phosphate, Serum/Plasma 4.5(H) 2.1 - 4.3 mg/dL [facility] [place] (STL) Albumin, Serum/Plasma 3.9 3.6 - 5.1 g/dL [facility] (STL) Blood (Blood, Venous) 07/26/2021 8:06 AM CDT 07/26/2021 8:06 AM CDT Narrative Resulting Agency Comment Performing Organization Information: ?Site ID: BRANT ?Name: [employer] ?Address: [facility] [place] [address] ?Director: Hakeem Jenkins D.O., MPH Aubrey Reyna MD LAB BLOOD ORDERABLES [facility] [place] (ST) documented in this encounter Visit Diagnoses Diagnosis Chronic kidney disease stage 3B (CMS-HCC) Diabetes mellitus with renal manifestations (CMS-HCC) Benign hypertension with chronic kidney disease Vitamin D deficiency, not otherwise specified documented in this encounter Care Teams Trauma Surgeon Relationship Specialty Start Date End Date Karrie Tompkins MD [address] [place] [address] [place] [phone] PCP - General 09/07/18 documented as of this encounter
--- OUTSIDE RECORDS SUMMARY | 2024-04-11 13:19 | XMS_ITS | Encounter Summary ---
Author Organization [facility] Address [address] [place] [address] Phone Care Team Providers Care Form Grader Name Role Phone Karrie Tompkins MD Primary Care Provider [phone] Encounter Details Date Type Department Care Team (Late st Contact Info) Description 10/08/2019 Orders Only [facility] Nephrology and Hypertension [facility], [address] [address] Aubrey Reyna MD [address] [facility], SUITE Count includes the [facility] [place] [address] Chronic kidney disease stage 3 (CMS-HCC) (Primary [...] Primary documented in this encounter Care Teams Form Grader Relationship Specialty Start Date End Date Karrie Tompkins MD [address] [place] [address] [place] [phone] PCP - General 09/07/18 documented as of this encounter
--- OUTSIDE RECORDS SUMMARY | 2024-04-11 13:19 | XMS_ITS | Encounter Summary ---
Author Organization [facility] Address [address] [place] [address] Phone Care Team Providers Care Psychic Reader Name Role Phone Karrie Tompkins MD Primary Care Provider [phone] Encounter Details Date Type Department Care Team (Late st Contact Info) Description 08/03/2019 Telephone [facility] Nephrology and Hypertension [address] [facility], [address] [place] [address] Aubrey Reyna MD [address] [facility], [address] [place] [address] Social History Tobacco Use Types Packs/Day Years [...] that she got her labs [facility] on [facility] 07/30. Thank you documented in this encounter Plan of Treatment Not on file documented as of this encounter Visit Diagnoses Not on filedocumented in this encounter Care Teams Psychic Reader Relationship Specialty Start Date End Date Karrie Tompkins MD [address] [place] [phone] PCP - General 09/07/18 documented as of this encounter
--- OUTSIDE RECORDS SUMMARY | 2024-04-11 13:19 | XMS_ITS | Encounter Summary ---
Author Organization [facility] Address [address], [place] [address] Phone Care Team Providers Care Clinical Program Coordinator Name Role Phone Karrie Tompkins MD Primary Care Provider [phone] Encounter Details Date Type Department Care Team (Late st Contact Info) Description 06/22/2020 2:00 PM CDT Office Visit [facility] Nephrology and Hypertension [address] [place] [address], [address] [place] [address] Aubrey Reyna MD [address] [facility], [address] [place] [address] Chronic kidney disease stage 4 (CMS-HCC); Diabetes [...] PLAN 1. Chronic kidney disease stage 4 ([facility]) 2. Diabetes mellitus with renal manifestations ([facility]) 3. Benign hypertension with chronic kidney [...] Glucose, Serum/Plasma 148(H) 65 - 139 mg/dL [facility] [place] (STL) Comment: ? Non-fasting reference interval Urea nitrogen, Serum/Plasma (BUN) 29(H) 7 - 25 mg/dL [facility] [place] (ST[facility]) Creatinine, Serum/Plasma 1.80(H) 0.60 - 0.93 mg/dL [facility] [place] (ST[facility]) Comment: For patients >49 years of age, the reference limit for Creatinine is approximately 13% higher for people identified as -Croatian. eGFR, non 28(L) > OR = 60 [...] Agency Comment Performing Organization Information: ?Site ID: [id number] ?Name: [employer] [facility] ?Address: [address] [place] [address] ?Director: Hakeem Jenkins D.O., MPH Aubrey Reyna MD LAB BLOOD ORDERABLES [facility] [place] ([facility]) documented in this encounter Visit Diagnoses Diagnosis Chronic kidney disease stage 4 (CMS-HCC) Diabetes mellitus with renal manifestations (CMS-HCC) Benign hypertension with chronic kidney disease documented in this encounter Care Teams Clinical Program Coordinator Relationship Specialty Start Date End Date Karrie Tompkins MD [address] [place] [phone] PCP - General 09/07/18 documented as of this encounter
--- OUTSIDE RECORDS SUMMARY | 2024-04-11 13:19 | XMS_ITS | Encounter Summary ---
Author Organization [facility] Address [address], [place] [address] Phone Care Team Providers Care Dam Tender Name Role Phone Karrie Tompkins MD Primary Care Provider [phone] Encounter Details Date Type Department Care Team (Late st Contact Info) Description 11/23/2020 1:45 PM CDT Office Visit [facility] Nephrology and Hypertension [address] [place] [address], [address] [place] [address] Aubrey Reyna MD [address] [facility], [address] [place] [address] Chronic kidney disease stage 4 (CMS-HCC); Diabetes [...] , Rfl: ??? Lancets (OneTouch Delica Plus [id number]) [facility], , Disp: , Rfl: ??? latanoprost (XALATAN) [...] ASSESSMENT 1. Chronic kidney disease stage 4 ([facility]) 2. Diabetes mellitus with renal manifestations ([facility]) 3. Benign hypertension with chronic [...] CREATININE, URINE, RANDOM Routine 02/28/2021 8:14 AM BOOKKEEPING TEACHER Chronic kidney disease stage 4 (CMS-HCC) Diabetes mellitus with renal manifestations (CMS-HCC) Benign hypertension with chronic kidney disease RENAL FUNCTION PANEL (RFP) Routine 02/28/2021 8:14 AM BOOKKEEPING TEACHER Chronic kidney disease stage 4 (CMS-HCC) Diabetes mellitus with renal manifestations (CMS-HCC) Benign hypertension with chronic kidney disease documented in this encounter Results * (ABNORMAL) Total Protein w/ Creatinine, Urine, Random (02/28/2021 8:14 AM BOOKKEEPING TEACHER) Creatinine, Urine 111 20 - 275 mg/dL [facility] ([facility]) Protein/Creati nine, Urine 252(H) 21 - 161 mg/g creat [facility] ([facility]) Protein/Creati nine, Urine 0.252(H) 0.021 - 0.161 mg/mg creat [facility] ([facility]) Protein, Urine 28(H) 5 - 24 mg/dL [facility] ([facility]) 02/28/2021 8:14 AM BOOKKEEPING TEACHER 02/28/2021 8:15 AM BOOKKEEPING TEACHER Narrative [facility] ([facility]) - 03/01/2021 12:03 PM BOOKKEEPING TEACHER FASTING:NO FASTING: NO Resulting Agency Comment Performing Organization Information: ?Site ID: [place] ?Name: [employer] ?Address: [address] [place] [address] ?Director: Hakeem Jenkins D.O., MPH Aubrey Reyna MD LAB URINE ORDERABLES [facility] [place] (ST) * (ABNORMAL) Renal Function Panel (RFP) (02/28/2021 8:14 AM BOOKKEEPING TEACHER) Glucose, Serum/Plasma 146(H) 65 - 139 mg/dL [facility] [place] (STL) Comment: ? Non-fasting reference interval Urea nitrogen, Serum/Plasma (BUN) 24 7 - 25 mg/dL [facility] [place] (STL) Creatinine, Serum/Plasma 1.55(H) 0.60 - 0.93 mg/dL [facility] [place] (STL) Comment: For patients >49 years of age, the reference limit for Creatinine is approximately 13% higher for people identified as -Ukrainian. eGFR, non 33(L) > OR = 60 mL/min/1. 73m2 [facility]. [facility] [place] (STL) eGFR, 39(L) > OR = 60 mL/min/1. 73m2 [facility] [place] (STL) Urea nitrogen/Creatinin e, Serum/Plasma 15 6 - 22 (calc) [facility] [place] (STL) Sodium, Serum/Plasma 136 135 - 146 mmol/L [facility] [place] (STL) Potassium, Serum/Plasma 4.6 3.5 - 5.3 mmol/L [facility] [place] (STL) Chloride, Serum/Plasma 102 98 - 110 mmol/L [facility] [place] ([facility]) Carbon dioxide CO2), total, Serum/Plasma 26 20 - 32 mmol/L [facility] [place] ([facility]) Calcium, Serum/Plasma 9.4 8.6 - 10.4 mg/dL [facility] ([facility]) Phosphate, Serum/Plasma 4.0 2.1 - 4.3 mg/dL [facility] ([facility]) Albumin, Serum/Plasma 4.1 3.6 - 5.1 g/dL [facility] ([facility]) Blood (Blood, Venous) 02/28/2021 8:14 AM BOOKKEEPING TEACHER 02/28/2021 8:15 AM BOOKKEEPING TEACHER Narrative [facility] ([facility]) - 03/01/2021 12:03 PM BOOKKEEPING TEACHER FASTING:NO FASTING: NO Resulting Agency Comment Performing Organization Information: ?Site ID: [id number] ?Name: [facility] ?Address: [facility] [place] [address] ?Director: Hakeem Jenkins D.O., MPH Aubrey Reyna MD LAB BLOOD ORDERABLES [facility] [place] ([facility]) documented in this encounter Visit Diagnoses Diagnosis Chronic kidney disease stage 4 (CMS-HCC) Diabetes mellitus with renal manifestations (CMS-HCC) Benign hypertension with chronic kidney disease documented in this encounter Care Teams Dam Tender Relationship Specialty Start Date End Date Karrie Tompkins MD [address] [place] [phone] PCP - General 09/07/18 documented as of this encounter
--- OUTSIDE RECORDS SUMMARY | 2024-04-11 13:19 | XMS_ITS | Encounter Summary ---
Author Organization [facility] Address [address] [place] [address] Phone Care Team Providers Care Loadmaster Name Role Phone Karrie Tompkins MD Primary Care Provider [phone] Encounter Details Date Type Department Care Team (Late st Contact Info) Description 08/12/2020 Telephone [facility] Nephrology and Hypertension 10[address] [facility], [address] [address] Aubrey Reyna MD [address] [facility], [address] [place] [address] Social History Tobacco Use Types Packs/Day Years [...] lab orders for that appt sent to [facility]. Thank you documented in this encounter Plan of Treatment Not on file documented as of this encounter Visit Diagnoses Not on filedocumented in this encounter Care Teams Loadmaster Relationship Specialty Start Date End Date Karrie Tompkins MD [address] [place] [address] [place] [phone] PCP - General 09/07/18 documented as of this encounter
--- OUTSIDE RECORDS SUMMARY | 2024-04-11 13:19 | XMS_ITS | Encounter Summary ---
Author Organization [facility]ions Address [address] [address] Phone Care Team Providers Care Senior Pastor Name Role Phone Karrie Tompkins MD Primary Care Provider [phone] Encounter Details Date Type Department Care Team (Latest Contact Info) Description 12/27/2021 3:00 PM CDT Office Visit [facility] Nephrology and Hypertension [address] [place] [address], [address] [place] [address] Aubrey Reyna MD [address] [facility], [address] [place] [address] Chronic kidney disease stage 4 (CMS-HCC); Diabetes [...] , Rfl: ??? Lancets (OneTouch Delica Plus [id number]) [facility] [place] , Disp: , Rfl: ??? latanoprost (XALATAN) [...] disease stage 4 ([facility]) 2. Diabetes mellitus with renal manifestations ([facility]) 3. Benign hypertension with chronic kidney disease [...] Lab Routine Chronic kidney disease stage 4 ([facility]) Diabetes mellitus with renal manifestations ([facility]) Benign hypertension with chronic kidney disease Secondary hyperparathyroidism ([facility]) Vitamin D deficiency, not otherwise specified Expected: [...] specified documented in this encounter Care Teams Senior Pastor Relationship Specialty Start Date End Date Karrie Tompkisn MD [address] [place] [phone] PCP - General 09/07/18 documented as of this encounter
--- OUTSIDE RECORDS SUMMARY | 2024-04-11 13:19 | XMS_ITS | Encounter Summary ---
Author Organization [facility] Molly utions Address [address], [place] [address] Phone Care Team Providers Care Erp Engineer Name Role Phone Karrie Tompkins MD Primary Care Provider [phone] Encounter Details Date Type Department Care Team (Latest Contact Info) Description 08/23/2021 1:15 PM CDT Office Visit [facility] Nephrology and Hypertension [address] [place] [address], [address] [place] [address] Aubrey Reyna MD [address] [facility], [address] [place] [address] Secondary hyperparathyroidism (CMS-HCC) (Primary Dx); Chronic kidney [...] , Rfl: ??? Lancets (OneTouch Delica Plus [id number]) [facility], , Disp: , Rfl: ??? latanoprost (XALATAN) [...] AM CDT Chronic kidney disease stage 4 ([facility]) Diabetes mellitus with renal manifestations ([facility]) Benign hypertension with chronic kidney disease Secondary hyperparathyroidism ([facility]) documented in this encounter Results * (ABNORMAL) PTH Intact w/o Calcium, Serum (12/05/2021 7:46 AM CDT) PTH, Intact, Serum/Plasma 92(H) 16 - 77 pg/mL [facility] ([facility]) Comment: Interpretive [...] AM CDT 12/05/2021 7:47 AM CDT Narrative [facility] ([facility]) - 12/06/2021 12:25 PM CDT FASTING:YES FASTING: YES Resulting Agency Comment Performing Organization Information: ?Site ID: [id number] ?Name: [facility] ?Address: [address] [address] ?Director: Hakeem Jenkins D.O., MPH Aubrey Reyna MD LAB BLOOD ORDERABLES Performing Organization Address [facility]/ZIP Co de Phone Number [facility] (ST) * Total Protein w/ Creatinine, Urine, Random (12/05/2021 7:46 AM CDT) Creatinine, Urine 98 20 - 275 mg/dL [facility] ([facility]) Protein/Creatin ine, Urine 163 24 - 184 mg/g creat [facility] ([facility]) Protein/Creatin ine, Urine 0.163 0.024 - 0.184 mg/mg creat [facility] ([facility]) Protein, Urine 16 5 - 24 mg/dL [facility] ([facility]) 12/05/2021 7:46 AM CDT 12/05/2021 7:47 AM CDT Narrative [facility] ([facility]) - 12/06/2021 12:25 PM CDT FASTING:YES FASTING: YES Resulting Agency Comment Performing Organization Information: ?Site ID: [id number] ?Name: [facility] ?Address: [address] [place] [id number] ?Director: Hakeem Jenkins D.O., MPH Aubrey Reyna MD LAB URINE ORDERABLES Performing Organization Address [facility] Co de Phone Number [facility] ([facility]) * (ABNORMAL) Renal Function Panel (RFP) (12/05/2021 7:46 AM CDT) Glucose, Serum/Plasma 93 65 - 99 mg/dL [facility] ([facility]) Comment: ? Fasting reference interval Urea nitrogen, Serum/Plasma (BUN) 39(H) 7 - 25 mg/dL [facility] ([facility]) Creatinine, Serum/Plasma 1.97(H) 0.60 - 1.00 mg/dL [facility] ([facility]) Estimated Glomerular Filtration Rate (eGFR) 27(L) > OR = 60 mL/min/1.[address] [facility] ([facility]) Comment: The eGFR is based on the CKD-EPI 2020 equation. To calculate the new eGFR from a previous Creatinine or Cystatin C result, go to https://www.kidney.org/professionals/ kdoqi/gfr%5Fcalculator Urea nitrogen/Creati nine, Serum/Plasma 20 6 - 22 (calc) [facility] ([facility]) Sodium, Serum/Plasma 131(L) 135 - 146 mmol/L [facility] ([facility]) Potassium, Serum/Plasma 4.7 3.5 - 5.3 mmol/L [facility] ([facility]) Chloride, Serum/Plasma 97(L) 98 - 110 mmol/L [facility] ([facility]) Carbon dioxide CO2), total, Serum/Plasma 24 20 - 32 mmol/L [facility] ([facility]) Calcium, Serum/Plasma 9.3 8.6 - 10.4 mg/dL [facility] ([facility]) Phosphate, Serum/Plasma 4.1 2.1 - 4.3 mg/dL [facility] ([facility]) Albumin, Serum/Plasma 4.1 3.6 - 5.1 g/dL [facility] ([facility]) Blood (Blood, Venous) 12/05/2021 7:46 AM CDT 12/05/2021 7:47 AM CDT Narrative [facility] ([facility]) - 12/06/2021 12:25 PM CDT FASTING:YES FASTING: YES Resulting Agency Comment Performing Organization Information: ?Site ID: [id number] ?Name: [facility] ?Address: [address] [place], [place] [address] [phone] ?Director: Hakeem Jenkins D.O., MPH Aubrey Reyna MD LAB BLOOD ORDERABLES [facility] ([facility]) documented in this encounter Visit Diagnoses Diagnosis Secondary hyperparathyroidism (CMS-HCC)- Primary Chronic kidney disease stage 4 (CMS-HCC) Diabetes mellitus with renal manifestations (CMS-HCC) Benign hypertension with chronic kidney disease documented in this encounter Care Teams Erp Engineer Relationship Specialty Start Date End Date Karrie Tompkins MD [address] [place] [address] [place] [phone] PCP - General 09/07/18 documented as of this encounter
--- OUTSIDE RECORDS SUMMARY | 2024-04-11 13:19 | XMS_ITS | Clinical Summary ---
Author Organization [facility] Molly utions Address [address] [place] [address] Phone Care Team Providers Care Hurl Shaker Name Role Phone Karrie Tompkins MD Primary Care Provider [phone] Allergies Active Allergy Reactions Criticality Noted Date [...] strip 10/05/2020 Active Lancets (OneTouch Delica Plus [id number]) misc 10/05/2020 Active cyanocobalamin 500 MCG tablet [...] Highest Risk Completed 07/01/2019, 06/30/2018 Care Teams Hurl Shaker Relationship Specialty Start Date End Date Karrie Tompkins MD [address] [place] [phone] PCP - General 09/07/18
--- OUTSIDE RECORDS SUMMARY | 2024-04-11 13:19 | XMS_ITS | Encounter Summary ---
Author Organization [facility] Physician Molly utions Address [facility] [address] [address] Phone Care Team Providers Care Independent Contractor Name Role Phone Karrie Tompkins MD Primary Care Provider [phone] Reason for Visit * Reason Comments Med Refill Encounter Details Date Type Department Care Team (Late st Contact Info) Description 01/04/2022 Refill [facility] Nephrology and Hypertension [address] [place] [address], [address] [place] [address] Aubrey Reyna MD [address] [facility], [address] [place] [address] Social History Tobacco Use Types Packs/Day Years [...] on filedocumented in this encounter Care Teams Independent Contractor Relationship Specialty Start Date End Date Karrie Tompkins MD [address] [place] [address] [place] [phone] PCP - General 09/07/18 documented as of this encounter
--- OUTSIDE RECORDS SUMMARY | 2024-04-11 13:19 | XMS_ITS | Encounter Summary ---
Author Organization Am[facility] Physician Molly utions Address [address] [place] [address] Phone Care Team Providers Care Furnace Combination Analyst Name Role Phone Karrie Tompkins MD Primary Care Provider [phone] Encounter Details Date Type Department Care Team (Late st Contact Info) Description 10/12/2019 1:30 PM CDT Office Visit [facility] Nephrology and Hypertension [address] [place] [address], [address] [place] [address] Aubrey Reyna MD [address] [facility], [address] [place] [address] Chronic kidney disease stage 3 (CMS-HCC); Diabetes [...] PLAN 1. Chronic kidney disease stage 3 ([facility]) 2. Diabetes mellitus with renal manifestations ([facility]) 3. Hypertensive renal disease Kandace has chronic [...] stage 3 Diabetes mellitus with renal manifestations ([facility]) Hypertensive renal disease [facility]? ? 25-HYDROXY VITAMIN [...] D (D2, D3) (01/12/2020 7:40 AM CDT) [facility] 25-Hydroxyvitamin D2+25-Hydroxyvitamin D3, Serum/Plasma 69 30 - [...] 2011;96(7):1911-30. ??For additional information, please refer to ??http://education.[employer]/faq/RYK253 Cholecalciferol (Vitamin D3), Serum/Plasma 69 ng/mL [facility] ([facility]) Comment:Reference range: Not established Calciferol (Vitamin D2), Serum/Plasma <4 ng/mL [facility] ([facility]) Comment: (Note) Reference range: Not established This test was developed and its analytical performance characteristics have been determined by [employer]. It has not been cleared or approved by the US Food and Drug Administration. This assay has been validated pursuant to the CLIA regulation and is used for Clinical purposes. [facility] [address] [place] [address],[address] [place] [address] Davis Sosa MD See Note 1 Note 1 For additional information, please refer to http://whistleBox.[employer]/faq/USD368 (This link is being provided for informational/ educational purposes only.) Blood (Blood, Venous) 01/12/2020 7:40 AM CDT 01/12/2020 7:41 AM CDT Narrative [facility] ([facility]) - 01/14/2020 1:20 PM CDT FASTING:YES FASTING: YES Resulting Agency Comment Performing Organization Information: ?Site ID: [id number] ?Name: [facility] ?Address: [address] [place] [address], [address] [place] [phone] ?Director: Iban Hoffman Aubrey Reyna MD LAB BLOOD ORDERABLES [facility] ([facility]) * (ABNORMAL) PTH Intact w/o Calcium, Serum (01/12/2020 7:40 AM CDT) PTH, Intact, Serum/Plasma 95(H) 14 - 64 pg/mL [facility] ([facility]) Comment: [...] CDT 01/12/2020 7:41 AM CDT Narrative [facility] ([facility]) - 01/14/2020 1:20 PM CDT FASTING:YES FASTING: YES Resulting Agency Comment Performing Organization Information: ?Site ID: [id number] ?Name: [facility] ?Address: [address] [address] ?Director: Hakeem Jenkins D.O., MPH Aubrey Reyna MD LAB BLOOD ORDERABLES [facility] (ST) * Total Protein w/ Creatinine, Urine, Random (01/12/2020 7:40 AM CDT) Creatinine, Urine 85 20 - 275 mg/dL [facility] ([facility]) Protein/Creatin ine, Urine 141 21 - 161 mg/g creat [facility] ([facility]) Protein/Creatin ine, Urine 0.141 0.021 - 0.161 mg/mg creat [facility] ([facility]) Protein, Urine 12 5 - 24 mg/dL [facility]) 01/12/2020 7:40 AM CDT 01/12/2020 7:41 AM CDT Narrative [facility] ([facility]) - 01/14/2020 1:20 PM CDT FASTING:YES FASTING: YES Resulting Agency Comment Performing Organization Information: ?Site ID: [id number] ?Name: [facility] ?Address: [facility] [place] [address] ?Director: Hakeem Jenkins D.O., MPH Aubrey Reyna MD LAB URINE ORDERABLES [facility] (ST) * (ABNORMAL) Renal Function Panel (RFP) (01/12/2020 7:40 AM CDT) Glucose, Serum/Plasma 182(H) 65 - 99 mg/dL [facility] ([facility]) Comment: ? Fasting reference interval For someone without known diabetes, a glucose value >125 mg/dL indicates that they may have diabetes and this should be confirmed with a follow-up test. Urea nitrogen, Serum/Plasma (BUN) 28(H) 7 - 25 mg/dL [facility] ([facility]) Creatinine, Serum/Plasma 1.53(H) 0.50 - 0.99 mg/dL [facility] ([facility]) Comment: For patients >49 years of age, the reference limit for Creatinine is approximately 13% higher for people identified as -Brazilian. eGFR, non 34(L) > OR = 60 mL/min/1. 73m2 [facility] ([facility]) eGFR, 40(L) > OR = 60 mL/min/1. 73m2 [facility] ([facility]) Urea nitrogen/Creatinin e, Serum/Plasma 18 6 - 22 (calc) [facility] ([facility]) Sodium, Serum/Plasma 141 135 - 146 mmol/L [facility] ([facility]) Potassium, Serum/Plasma 4.6 [...] Albumin, Serum/Plasma 4.0 3.6 - 5.1 g/dL [facility] ([facility]) Blood (Blood, Venous) 01/12/2020 7:40 AM CDT 01/12/2020 7:41 AM CDT Narrative [facility] ([facility]) - 01/14/2020 1:20 PM CDT FASTING:YES FASTING: YES Resulting Agency Comment Performing Organization Information: ?Site ID: [id number] ?Name: [facility] ?Address: [facility] [place] [address] ?Director: Hakeem Jenkins D.O., MPH Aubrey Reyna MD LAB BLOOD ORDERABLES [facility] ([facility]) documented in this encounter Visit Diagnoses Diagnosis Chronic kidney disease stage 3 (CMS-HCC) Diabetes mellitus with renal manifestations (CMS-HCC) Hypertensive renal disease documented in this encounter Care Teams Furnace Combination Analyst Relationship Specialty Start Date End Date Karrie Tompkins MD [address] [place] [address] [place] [phone] PCP - General 09/07/18 documented as of this encounter
--- OUTSIDE RECORDS SUMMARY | 2024-04-11 13:19 | XMS_ITS | Encounter Summary ---
Author Organization [facility] Physician Molly utions Address [address] [address] Phone Care Team Providers Care Mint Machine Operator Name Role Phone Karrie Tompkins MD Primary Care Provider [phone] Encounter Details Date Type Department Care Team (Late st Contact Info) Description 06/10/2019 2:15 PM CDT Office Visit [facility] Nephrology and Hypertension [address] [place] [address], [address] [place] [address] Aubrey Reyna MD [address] [facility], [address] [place] [address] Chronic kidney disease stage 3 (CMS-HCC); Diabetes [...] Creatinine, Urine 29 20 - 275 mg/dL [facility]) Protein/Creatin ine, Urine NOTE 21 - 161 mg/g creat [facility] ([facility]) Comment: THE PROTEIN VALUE IS LESS THAN 4 MG/DL THEREFORE WE ARE UNABLE TO CALCULATE EXCRETION AND/OR CREATININE RATIO. ?? Protein/Creatin ine, Urine NOTE 0.021 - 0.161 mg/mg creat [facility] - [facility] ([facility]) Protein, Urine <4(L) 5 - 24 mg/dL [facility] ([facility]) Comment: Verified by repeat analysis. 10/05/2019 12:5 2 PM CDT 10/05/2019 12:53 PM CDT Narrative [facility] ([facility]) - 10/06/2019 3:01 PM CDT SPLIT 07/31/2019 FROM [id number] FASTING:NO FASTING: NO Resulting Agency Comment Performing Organization Information: ?Site ID: [place] ?Name: [facility] ?Address: [address] [place] [id number] ?Director: Hakeem Jenkins D.O., MPH Aubrey Reyna MD LAB URINE ORDERABLES [facility] ([facility]) * (ABNORMAL) Renal Function Panel (RFP) (07/31/2019 9:05 AM CDT) Glucose, Serum/Plasma 149(H) 65 - 99 mg/dL [facility] ([facility]) Comment: ? Fasting reference interval For someone without known diabetes, a glucose value >125 mg/dL indicates that they may have diabetes and this should be confirmed with a follow-up test. Urea nitrogen, Serum/Plasma (BUN) 38(H) 7 - 25 mg/dL [facility] ([facility]) Creatinine, Serum/Plasma 1.79(H) 0.50 - 0.99 mg/dL [facility]. [facility] ([facility]) Comment: For patients >49 years of age, the reference limit for Creatinine is approximately 13% higher for people identified as -Tanzanian. eGFR, non 28(L) > OR = 60 mL/min/1. 73m2 [facility] ([facility]) eGFR, 33(L) > OR = 60 mL/min/1. 73m2 [facility] ([facility]) Urea nitrogen/Creatinin e, Serum/Plasma 21 6 - 22 (calc) [facility]) Sodium, Serum/Plasma 138 135 - 146 mmol/L [facility] Potassium, Serum/Plasma 4.7 3.5 - 5.3 mmol/L [facility]) Chloride, Serum/Plasma 103 98 - 110 mmol/L [facility] ([facility]) Carbon dioxide CO2), total, Serum/Plasma 26 20 - 32 mmol/L [facility] Calcium, Serum/Plasma 9.8 8.6 - 10.4 mg/dL [facility] ([facility]) Phosphate, Serum/Plasma 4.3 2.1 - 4.3 mg/dL [facility] ([facility]) Albumin, Serum/Plasma 4.0 3.6 - 5.1 g/dL [facility] ([facility]) Blood (Blood, Venous) 07/31/2019 9:05 AM CDT 07/31/2019 9:06 AM CDT Narrative [facility] ([facility]) - 08/01/2019 2:15 AM CDT FASTING:YES COLLECTION REQUIREMENTS NOT MET. PATIENT ADVISED TO RETURN. FASTING: YES Resulting Agency Comment Performing Organization Information: ?Site ID: [place] ?Name: [facility] ?Address: [address] [address] ?Director: Hakeem Jenkins D.O., MPH Aubrey Reyna MD LAB BLOOD ORDERABLES [facility] ([facility]) documented in this encounter Visit Diagnoses Diagnosis Chronic kidney disease stage 3 (CMS-HCC) Diabetes mellitus with renal manifestations (CMS-HCC) Hypertensive renal disease documented in this encounter Care Teams Mint Machine Operator Relationship Specialty Start Date End Date Karrie Tompkins MD [address] [place] [address] [place] [phone] PCP - General 09/07/18 documented as of this encounter
--- OUTSIDE RECORDS SUMMARY | 2024-04-11 13:19 | XMS_ITS | Encounter Summary ---
Author Organization [facility] Address [address] [place] [address] Phone Care Team Providers Care Window Draper Name Role Phone Karrie Tompkins MD Primary Care Provider [phone] Encounter Details Date Type Department Care Team (Late st Contact Info) Description 09/01/2020 Orders Only [facility] Nephrology and Hypertension [facility], [address] [address] Aubrey Reyna MD [address] [facility], SUITE [facility] [place] [address] Chronic kidney disease stage 4 (CMS-HCC) (Primary [...] Creatinine, Urine 31 20 - 275 mg/dL [facility] ([facility]) Protein/Creatin ine, Urine NOTE 21 - 161 mg/g creat [facility] ([facility]) Comment: [...] AM CDT 11/10/2020 7:32 AM CDT Narrative [facility] ([facility]) - 11/14/2020 1:05 PM CDT FASTING:YES FASTING: YES Resulting Agency Comment Performing Organization Information: ?Site ID: [place] ?Name: [facility] ?Address: [address] [address] ?Director: Hakeem Jenkins D.O., MPH Aubrey Reyna [...] D, (D2,D3), LC/MS/MS is recommended: order code [id number] (patients >2yrs). See Note 1 Note 1 For additional information, please refer to http://education.Winkapp/faq/IWR792 (This link is being provided for informational/ educational purposes only.) 11/10/2020 7:32 AM CDT 11/10/2020 7:32 AM CDT Narrative [facility] (STL) - 11/14/2020 1:05 PM CDT FASTING:YES FASTING: YES Resulting Agency Comment Performing Organization Information: ?Site ID: [place] ?Name: [employer] ?Address: [address] [address] ?Director: Hakeem Jenkins D.O., MPH Aubrey Reyna MD LAB BLOOD ORDERABLES [facility] (ST) * (ABNORMAL) PTH Intact w/o Calcium, Serum (11/10/2020 7:32 AM CDT) [facility] PTH, Intact, Serum/Plasma 86(H) 14 - 64 pg/mL [facility] ([facility]) Comment: Interpretive Guide [...] AM CDT 11/10/2020 7:32 AM CDT Narrative [facility] ([facility]) - 11/14/2020 1:05 PM CDT FASTING:YES FASTING: YES Resulting Agency Comment Performing Organization Information: ?Site ID: [place] ?Name: [employer] ?Address: [address] [address] ?Director: Hakeem Jenkins D.O., MPH Aubrey Reyna MD LAB BLOOD ORDERABLES [facility] ([facility]) * (ABNORMAL) Renal Function Panel (RFP) (11/10/2020 7:32 AM CDT) [facility] Glucose, Serum/Plasma 95 65 - 99 mg/dL [facility]) Comment: ? Fasting reference interval Urea nitrogen, Serum/Plasma (BUN) 39(H) 7 - 25 mg/dL [facility]) Creatinine, Serum/Plasma 1.76(H) 0.60 - 0.93 mg/dL [facility]) Comment: For patients >49 years of age, the reference limit for Creatinine is approximately 13% higher for people identified as -[place] Islander. eGFR, non 29(L) > OR = 60 mL/min/1. 73m2 [facility] ([facility]) eGFR, 33(L) > OR = 60 mL/min/1. 73m2 [facility]) Urea nitrogen/Creatinin e, Serum/Plasma 22 6 - 22 (calc) [facility]) Sodium, Serum/Plasma 133(L) 135 - 146 mmol/L [facility] ([facility]) Potassium, Serum/Plasma 5.3 3.5 - 5.3 mmol/L [facility]) Chloride, Serum/Plasma 100 98 - 110 mmol/L [facility] ([facility]) Carbon dioxide CO2), total, Serum/Plasma 24 20 - 32 mmol/L [facility] ([facility]) Calcium, Serum/Plasma 9.3 8.6 - 10.4 mg/dL [facility] ([facility]) Phosphate, Serum/Plasma 5.0(H) 2.1 - 4.3 mg/dL [facility] ([facility]) Albumin, Serum/Plasma 3.9 3.6 - 5.1 g/dL [facility] ([facility]) Blood (Blood, Venous) 11/10/2020 7:32 AM CDT 11/10/2020 7:32 AM CDT Narrative [facility] ([facility]) - 11/14/2020 1:05 PM CDT FASTING:YES FASTING: YES Resulting Agency Comment Performing Organization Information: ?Site ID: [place] ?Name: [facility] ?Address: [address] [address] ?Director: Hakeem Jenkins D.O., MPH Aubrey Reyna MD LAB BLOOD ORDERABLES [facility] ([facility]) documented in this encounter Visit Diagnoses Diagnosis Chronic kidney disease stage 4 (CMS-HCC)- Primary Diabetes mellitus with renal manifestations (CMS-HCC) Benign hypertension with chronic kidney disease documented in this encounter Care Teams Window Draper Relationship Specialty Start Date End Date Karrie Tompkins MD [address] [place] [address] [place] [id number] PCP - General 09/07/18 documented as of this encounter
--- OUTSIDE RECORDS SUMMARY | 2024-04-11 13:19 | XMS_ITS | Encounter Summary ---
Author Organization [facility] Address [address] [place] [address] Phone Care Team Providers Care Golf Shoe Spike Assembler Name Role Phone Karrie Tompkins MD Primary Care Provider [phone] Encounter Details Date Type Department Care Team (Late st Contact Info) Description 02/22/2020 1:15 PM CHIEF LIBRARIAN BRANCH Office Visit [facility] Nephrology and Hypertension [address] [place] [address], [address] [place] [address] Aubrey Reyna MD [address] [facility], [address] [place] [address] Chronic kidney disease, stage 3b; Diabetes mellitus with renal manifestations ([facility]); Benign hypertension with chronic kidney disease [...] Comments Blood Pressure 136/76 02/22/2020 1:22 PM CHIEF LIBRARIAN BRANCH Pulse - - Temperature 36.3 ??C (97.4 ??F) 02/22/2020 1:22 PM CS T Respiratory Rate 18 02/22/2020 1:22 PM CHIEF LIBRARIAN BRANCH Oxygen Saturation - - Inhaled Oxygen Concentration - - Weight 76.7 kg (169 lb) 02/22/2020 1:22 PM CHIEF LIBRARIAN BRANCH Height 154.9 cm (5' 1 ) 02/22/2020 1:22 PM CHIEF LIBRARIAN BRANCH Body Mass Index 31.93 02/22/2020 1:22 PM CHIEF LIBRARIAN BRANCH documented in this encounter Progress Notes * [...] 3b 2. Diabetes mellitus with renal manifestations ([facility]) 3. Benign hypertension with chronic [...] CREATININE, URINE, RANDOM Routine 05/24/2020 8:54 AM CHIEF LIBRARIAN BRANCH Chronic kidney disease, stage 3b Diabetes mellitus with renal manifestations (CMS-HCC) Benign hypertension with chronic kidney disease RENAL FUNCTION PANEL (RFP) Routine 05/24/2020 8:54 AM CHIEF LIBRARIAN BRANCH Chronic kidney disease, stage 3b Diabetes mellitus with renal manifestations (CMS-HCC) Benign hypertension with chronic kidney disease documented in this encounter Results * Total Protein w/ Creatinine, Urine, Random (05/24/2020 8:54 AM CHIEF LIBRARIAN BRANCH) Creatinine, Urine 107 20 - 275 mg/dL [facility] ([facility]) Protein/Creatin ine, Urine 84 21 - 161 mg/g creat [facility] ([facility]) Protein/Creatin ine, Urine 0.084 0.021 - 0.161 mg/mg creat [facility] ([facility]) Protein, Urine 9 5 - 24 mg/dL [facility] ([facility]) 05/24/2020 8:54 AM CHIEF LIBRARIAN BRANCH 05/24/2020 8:55 AM CHIEF LIBRARIAN BRANCH Narrative Resulting Agency Comment Performing Organization Information: ?Site ID: [place] ?Name: [facility] ?Address: [id number] [place] [address] [place] [address] ?Director: Hakeem Jenkins D.O., MPH Aubrey Reyna MD LAB URINE ORDERABLES [facility] ([facility]) * (ABNORMAL) Renal Function Panel (RFP) (05/24/2020 8:54 AM CHIEF LIBRARIAN BRANCH) Glucose, Serum/Plasma 115(H) 65 - 99 mg/dL [facility] ([facility]) Comment: ? Fasting reference interval For someone without known diabetes, a glucose value between 100 and 125 mg/dL is consistent with prediabetes and should be confirmed with a follow-up test. Urea nitrogen, Serum/Plasma (BUN) 39(H) 7 - 25 mg/dL [facility] ([facility]) Creatinine, Serum/Plasma 2.20(H) 0.60 - 0.93 mg/dL [facility] ([facility]) Comment: For patients >49 years of age, the reference limit for Creatinine is approximately 13% higher for people identified as -[place] Citizen. eGFR, non 22(L) > OR = 60 mL/min/1. 73m2 [facility] ([facility]) eGFR, 25(L) > OR = 60 mL/min/1. 73m2 [facility] ([facility]) Urea nitrogen/Creatinin e, Serum/Plasma 18 6 - 22 (calc) [facility] ([facility]) Sodium, Serum/Plasma 133(L) 135 - 146 mmol/L [facility] ([facility]) Potassium, Serum/Plasma 5.3 3.5 - 5.3 mmol/L [facility] ([facility]) Chloride, Serum/Plasma 102 98 - 110 mmol/L [facility] ([facility]) Carbon dioxide CO2), total, Serum/Plasma 21 20 - 32 mmol/L [facility] ([facility]) Calcium, Serum/Plasma 9.1 8.6 - 10.4 mg/dL [facility] ([facility]) Phosphate, Serum/Plasma 4.1 2.1 - 4.3 mg/dL [facility] ([facility]) Albumin, Serum/Plasma 3.9 3.6 - 5.1 g/dL [facility] ([facility]) Blood (Blood, Venous) 05/24/2020 8:54 AM CHIEF LIBRARIAN BRANCH 05/24/2020 8:55 AM CHIEF LIBRARIAN BRANCH Narrative Resulting Agency Comment Performing Organization Information: ?Site ID: [place] ?Name: [facility] ?Address: [address] [address] ?Director: Hakeem Jenkins D.O., MPH Aubrey Reyna MD LAB BLOOD ORDERABLES [facility] ([facility]) documented in this encounter Visit Diagnoses Diagnosis Chronic kidney disease, stage 3b Diabetes mellitus with renal manifestations (CMS-HCC) Benign hypertension with chronic kidney disease documented in this encounter Care Teams Golf Shoe Spike Assembler Relationship Specialty Start Date End Date Karrie Tompkins MD [address] [place] [address] [place] [address] PCP - General 09/07/18 documented as of this encounter
--- OUTSIDE RECORDS SUMMARY | 2024-04-11 13:20 | XMS_ITS | Encounter Summary ---
Author Organization [facility] Address [address] [place] [address] Phone Care Team Providers Care Raking Machine Operator Name Role Phone Karrie Tompkins MD Primary Care Provider + Encounter Details Date Type Department Care Team (Late st Contact Info) Description 12/01/2021 Orders Only [facility] Neurosurgery [address] [facility] Medical Office Building [address] [place] [phone] Landon Lopes, DO [address] [place] [address] Neck pain (Primary Dx) Social History Tobacco [...] on file 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
--- OUTSIDE RECORDS SUMMARY | 2024-04-11 13:20 | XMS_ITS | Continuity of Care Document ---
Author Organization [facility] Address [address] [place] [address] Phone Care Team Providers Care Iv Therapy Nurse Name Role Phone Daniel Corrales MD Unavailable Unavailable Procedures Procedure Date Special Reports Or Forms Miscellaneous Advance Directives Directive Yes / No Effective Date File Name No Information Encounters Encounter Description Practice Location Reason(s) For Visit Diagnoses Date Provider Providers Copied on Encounter [facility], [address] [place], [place] [address] [address], [place], [place], [id number], tel:[phone] [facility] No Information [address] [place], [id number], [place]. tel:[phone] [facility], [address] [place], [place] [address] [address], [place], [place], [id number], tel:[phone] [facility] No Information [address] [facility] [place], [id number], [place]. tel:[phone] Family History Family Member Type Diagnosis Age [...]
--- OUTSIDE RECORDS SUMMARY | 2024-04-11 13:20 | XMS_ITS | Encounter Summary ---
Author Organization [facility] Address [address] [place] [address] Phone Care Team Providers Care System Safety Engineer Name Role Phone Karrie Tompkins MD Primary Care Provider Encounter Details Date Type Department Care Team (Late st Contact Info) Description 01/07/2019 10:30 AM CDT Office Visit [facility] Nephrology and Hypertension [address] [place] [address], [address] [place] [address] Aubrey Reyna MD [address] [facility], [address] [place] [address] Chronic kidney disease stage 3 (CMS-HCC); Diabetes [...] PROTCREATUR 64 09/24/2018 PTH 109 (H) 09/24/2018 [id number] 27 (L) 09/24/2018 ASSESSMENT AND PLAN 1. [...] Lab Routine Chronic kidney disease stage 3 ([facility]) Diabetes mellitus with renal manifestations ([facility]) Hypertensive renal disease Expected: 04/09/2019, Expires: 01/08/2020 documented as of this encounter Procedures Procedure Name Priority Date/Time Associated Diagnosis Comments TOTAL PROTEIN W/ CREATININE, URINE, RANDOM Routine 06/01/2019 9:59 AM DRIER TENDER Chronic kidney disease stage 3 ([facility]) Diabetes mellitus with renal manifestations ([facility]) Hypertensive renal disease RENAL FUNCTION PANEL (RFP) Routine 06/01/2019 9:59 AM DRIER TENDER Chronic kidney disease stage 3 (CMS-HCC) Diabetes mellitus with renal manifestations (CMS-HCC) Hypertensive renal disease HEMOGLOBIN A1C Routine 06/01/2019 9:59 AM DRIER TENDER Chronic kidney disease stage 3 (CMS-HCC) Diabetes mellitus with renal manifestations ([facility]) Hypertensive renal disease PTH INTACT W/O CALCIUM, SERUM Routine 06/01/2019 9:59 AM DRIER TENDER Chronic kidney disease stage 3 ([facility]) Diabetes mellitus with renal manifestations ([facility]) Hypertensive renal disease documented in this encounter Results * (ABNORMAL) Hemoglobin A1c, Serum (06/01/2019 9:59 AM DRIER TENDER) Hemoglobin A1c/Hemoglobin, total, Blood 6.0(H) <5.7 % of total Hgb [facility] ([facility]) Comment: For [...] children. Blood (Blood, Venous) 06/01/2019 9:59 AM DRIER TENDER 06/01/2019 10:00 AM DRIER TENDER Narrative [facility] ([facility]) - 06/02/2019 2:45 PM DRIER TENDER FASTING:YES FASTING: YES Resulting Agency Comment Performing Organization Information: ?Site ID: [place] ?Name: [facility] ?Address: [address] [place] [id number] ?Director: Hakeem Jenkins D.O., MPH Aubrey Reyna MD LAB BLOOD ORDERABLES [facility] ([facility]) * (ABNORMAL) PTH Intact w/o Calcium, Serum (06/01/2019 9:59 AM DRIER TENDER) PTH, Intact, Serum/Plasma 90(H) 14 - 64 pg/mL [facility] ([facility]) Comment: Interpretive Guide ?Intact PTH ? Calcium ? ------- Normal Parathyroid ?Normal ? Normal Hypoparathyroidism ?Low or Low Normal ?Low Hyperparathyroidism ?? Primary ?Normal or High ? High ?? Secondary ?High ? Normal or Low ?? Tertiary ? High ? High Non-Parathyroid ?? Hypercalcemia ?Low or Low Normal ?High Blood (Blood, Venous) 06/01/2019 9:59 AM DRIER TENDER 06/01/2019 10:00 AM DRIER TENDER Narrative [facility] ([facility]) - 06/02/2019 2:45 PM DRIER TENDER FASTING:YES FASTING: YES Resulting Agency Comment Performing Organization Information: ?Site ID: [place] ?Name: [facility] ?Address: [address] [place] [address] ?Director: Hakeem Jenkins D.O., MPH Aubrey Reyna MD LAB BLOOD ORDERABLES [facility] ([facility]) * Total Protein w/ Creatinine, Urine, Random (06/01/2019 9:59 AM DRIER TENDER) Creatinine, Urine 81 20 - 275 mg/dL [facility] ([facility]) Protein/Creatin ine, Urine 86 21 - 161 mg/g creat [facility] ([facility]) Protein/Creatin ine, Urine 0.086 0.021 - 0.161 mg/mg creat [facility] ([facility]) Protein, Urine 7 5 - 24 mg/dL [facility] ([facility]) 06/01/2019 9:59 AM DRIER TENDER 06/01/2019 10:00 AM DRIER TENDER Narrative [facility] ([facility]) - 06/02/2019 2:45 PM DRIER TENDER FASTING:YES FASTING: YES Resulting Agency Comment Performing Organization Information: ?Site ID: [place] ?Name: [facility] ?Address: [address] [address] ?Director: Hakeem Jenkins D.O., MPH Aubrey Reyna MD LAB URINE ORDERABLES [facility] (ST) * (ABNORMAL) Renal Function Panel (RFP) (06/01/2019 9:59 AM DRIER TENDER) Glucose, Serum/Plasma 155(H) 65 - 99 mg/dL [facility] ([facility]) Comment: ? Fasting reference interval For someone without known diabetes, a glucose value >125 mg/dL indicates that they may have diabetes and this should be confirmed with a follow-up test. Urea nitrogen, Serum/Plasma (BUN) 36(H) 7 - 25 mg/dL [facility] ([facility]) Creatinine, Serum/Plasma 1.86(H) 0.50 - 0.99 mg/dL [facility]. [facility] (ST) Comment: For patients >49 years of age, the reference limit for Creatinine is approximately 13% higher for people identified as -Armenian. eGFR, non 27(L) > OR = 60 mL/min/1. 73m2 [facility] ([facility]) eGFR, 31(L) > OR = 60 mL/min/1. 73m2 [facility] ([facility]) Urea nitrogen/Creatinin e, Serum/Plasma 19 6 - 22 (calc) [facility] [...] Calcium, Serum/Plasma 9.4 8.6 - 10.4 mg/dL [facility] ([facility]) Phosphate, Serum/Plasma 4.3 2.1 - 4.3 mg/dL [facility] ([facility]) Albumin, Serum/Plasma 4.1 3.6 - 5.1 g/dL [facility] ([facility]) Blood (Blood, Venous) 06/01/2019 9:59 AM DRIER TENDER 06/01/2019 10:00 AM DRIER TENDER Narrative [facility] ([facility]) - 06/02/2019 2:45 PM DRIER TENDER FASTING:YES FASTING: YES Resulting Agency Comment Performing Organization Information: ?Site ID: [place] ?Name: [facility] ?Address: [facility] [address] [address] ?Director: Hakeem Jenkins D.O., MPH Aubrey Reyna MD LAB BLOOD ORDERABLES [facility] ([facility]) documented in this encounter Visit Diagnoses Diagnosis Chronic kidney disease stage 3 (CMS-HCC) Diabetes mellitus with renal manifestations (CMS-HCC) Hypertensive renal disease documented in this encounter Care Teams System Safety Engineer Relationship Specialty Start Date End Date Karrie Tompkins MD [address] [place] [address] [place] [address] PCP - General 09/07/18 documented as of this encounter
--- OUTSIDE RECORDS SUMMARY | 2024-04-11 13:20 | XMS_ITS | Clinical Summary ---
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
--- OUTSIDE RECORDS SUMMARY | 2024-04-11 13:20 | XMS_ITS | Encounter Summary ---
Author Organization [facility] Address [address] [facility] [address] [place] [address] Care Team Providers Care Cider Maker Name Role Phone Karrie Tompkins MD Primary Care Provider + Reason for Visit * Reason Comments Follow-up 1 yr f/u Hypertension Hyperlipidemia Encounter Details Date Type Department Care Team (Latest Contact Info) Description 10/22/2022 11:30 AM CDT Office Visit [facility] Cardiology [address] [place] [address] Ori Murillo MD [facility] [address] Mixed hyperlipidemia (Primary Dx); Primary [...] on file Legal Sex Female 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 Patient was in [place] and moved to this area recently. She was evaluated in [place] by stress test about couple years ago that was unremarkable. 02/23/2019 initial consultation: Complains of dyspnea on exertion for the last couple years specially walking half a mi or going up stairs. She did have chest pain, left-sided aggravated by moving the left shoulder and stress test in [place] to was negative. She admits to heartburn when she eats and relieved by antacids. This has not changed form many years. Denies lower limb edema, orthopnea, parox ysmal nocturnal dyspnea, dizziness, syncope. She reports that she was exposed to secondhand smokingall her life. Head brother at age 69 with massive myocardial infarction. 04/06/2019 follow-up visit with GROUP PRESIDENT: She returns for follow-up of her dyspnea [...] chest pain recently. 10/12/2019 follow-up visit with GROUP PRESIDENT: She returns for six-month follow-up. She reports [...] palpitations at night. 10/16/2021 follow-up visit with GROUP PRESIDENT: She is here for annual follow-up. Over [...] the last year. 04/12/2022 office visit with GROUP PRESIDENT. She returns to the office at my [...] facial fractures, and she was transferred from [place] to [facility] for further evaluation and treatment. Her [...] grandson. She underwent upper back surgery at [facility] in May 2022 and did well. Shortness of breath on exertion is better than before. Denies chest pain, lower extremity edema, palpitations, dizzinessor syncope. She did gain 10 lb compared to last visit. Medical History: Past Medical History: Diagnosis Date Ferrell's esophagus COPD (chronic obstructive pulmonary disease) ([facility]) Depression Heart murmur Hyperlipidemia Hypertension Iron deficiency [...] by mouth nightly, Disp: , Rfl: vitamins A,C,V-[id number] ([employer] AREDS) 2,148 mcg-113 mg-45 mg-17.4mg tablet, [...] and triglycerides 211. CKD is followed by windows server engineer Dr. Reyna. Continue Nephrology follow-up. She takes Lasix 20 mg every other day. Keep the previously scheduled follow-up with Dr. Murillo in 12months. Call us sooner with questions or concerns. Ori Murillo MD This note is dictated and transcribed using Wi[employer]ry Direct Software. A R Specialist variancesmay occur. Despite proofreading, typographical errors [...] abnormality documented in this encounter Care Teams Cider Maker Relationship Specialty Start Date End Date Karrie Tompkins MD PCP - General Family Medicine 11/21/18 01/19/24 documented as of this encounter
--- OUTSIDE RECORDS SUMMARY | 2024-04-11 13:20 | XMS_ITS | Encounter Summary ---
Author Organization [facility] Address [address] [facility] [address] [place] [address] Care Team Providers Care Wafer Line Worker Name Role Phone Karrie Tompkins MD Primary Care Provider + Reason for Visit * Reason Comments Surgical Clearance Encounter Details Date Type Department Care Team (Late st Contact Info) Description 04/12/2022 9:30 AM DIRECTOR CARD Office Visit [facility] Cardiology [address] [facility] [address] [facility] [address] [place] [address] Rhea Torres NP [address] [place] [address] Dyspnea on exertion (Primary Dx); [...] on file Legal Sex Female 8:14 PM DIRECTOR CARD Gender Identity Not on file Sexual Orientation Not on file documented as of this encounter Last Filed Vital Signs Vital Sign Reading Time Taken Comments Blood Pressure 114/50 04/12/2022 9:33 AM DIRECTOR CARD Pulse 73 04/12/2022 9:33 AM DIRECTOR CARD Temperature - - Respiratory Rate - - Oxygen Saturation 99% 04/12/2022 9:33 AM DIRECTOR CARD Inhaled Oxygen Concentration - - Weight 61.7 kg (136 lb) 04/12/2022 9:33 AM DIRECTOR CARD Height 152.4 cm (5') 04/12/2022 9:33 AM DIRECTOR CARD Body Mass Index 26.56 04/12/2022 9:33 AM DIRECTOR CARD documented in this encounter Progress Notes * Rhea Torres NP - 04/12/2022 9:30 AM CST Images from the original note were not included. [facility] Cardiology [address] [place] [address] Date of Visit: 04/12/2022 Patient ID: Kandace [...] for dyspnea on exertion. Patient was in [place] and moved to this area recently. She was evaluated in [place] by stress test about couple years ago that was unremarkable. 02/23/2019 initial consultation: Complains of dyspnea on exertion for the last couple years specially walking half a mi or going up stairs. She did have chest pain, left-sided aggravated by moving the left shoulder and stress test in [place] to was negative. She admits to heartburn when she eats and relieved by antacids. This has not changed form many years. Denies lower limb edema, orthopnea, parox ysmal nocturnal dyspnea, dizziness, syncope. She reports that she was exposed to secondhand smokingall her life. Head brother at age 69 with massive myocardial infarction. 04/06/2019 follow-up visit with MAINTENANCE OF WAY FOREMAN: She returns for follow-up of her dyspnea [...] chest pain recently. 10/12/2019 follow-up visit with MAINTENANCE OF WAY FOREMAN: She returns for six-month follow-up. She reports [...] palpitations at night. 10/16/2021 follow-up visit with MAINTENANCE OF WAY FOREMAN: She is here for annual follow-up. Over [...] the last year. 04/12/2022 office visit with MAINTENANCE OF WAY FOREMAN. She returns to the office at my [...] facial fractures, and she was transferred from [place] to [facility] for further evaluation and treatment. Her [...] above) 10/16/2021 office note from myself, 02/14/2022 [facility] discharge summary, today's ECG. I have also reviewed: allergies, current medications, past family history, past medical history, past social history, past surgical history and problem list Medical History: Past Medical History: Diagnosis Date Ferrell's esophagus COPD (chronic obstructive pulmonary disease) ([facility]) ([facility]) Depression Heart murmur Hyperlipidemia Hypertension Iron deficiency [...] by mouth nightly, Disp: , Rfl: vitamins A,C,J-oahw-iomwro (PreserVision AREDS) 2,148 mcg-113 mg-45 mg-17.4mg tablet, [...] and lost weight. CKD is followed by practicing urologist Dr. Reyna. Continue Nephrology follow-up. From a [...] concerns. 04/12/2022 CYNDI Marcum- Nurse Practitioner with [facility] Cardiology This note is dictated and transcribed using Avatar Reality Direct Software. Oyster Culturist variancesmay occur. Despite proofreading, typographical errors may occur. CTOR CARD documented in this encounter Miscellaneous Notes * Addendum Note - Jazmin Gurrola MA - 04/12/2022 9:30 AM CSTAddended by: JAZMIN GURROLA on: 04/12/2022 10:53 AM Modules accepted: Orders CTOR CARD documented in this encounter Plan of Treatment Not on file documented as of this encounter Procedures Procedure Name Priority Date/Time Associated Diagnosis Comments ECG 12-LEAD Routine 04/12/2022 Preoperative cardiovascular examination documented in this encounter Results * ECG 12 lead (04/12/2022) Rhea Torres NP ECG ORDERABLES Final Res ult documented [...] reflect changes made after this encounter. vitamins A,C,G-xdgj-xnncs r (PreserVision AREDS) 2,148 mcg-113 mg-45 mg-17.4mg tablet 1 tablet polyvinyl alcohol (LIQUIFILM TEARS) 1.4 % ophthalmic solution Administer 1 drop into affected eye(s) every 4 (four) hours as needed 02/19/2022 citalopram (CeleXA) 40 mg tablet 04/07/2022 added in this encounter Care Teams Wafer Line Worker Relationship Specialty Start Date End Date Karrie Tompkins MD PCP - General Family Medicine 11/21/18 01/19/24 documented as of this encounter
--- OUTSIDE RECORDS SUMMARY | 2024-04-11 13:20 | XMS_ITS | Encounter Summary ---
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 ??There will be no report generated by a [facility] Radiologist. Narrative [facility] - 11/30/2021 7:47 AM CDT EXAMINATION: ??Images For Reference Purposes Only us Sky Leon MD PhD IMG CT PROCEDURES Final R esult [facility] documented in this encounter Visit Diagnoses Not on filedocumented in this encounter Care Teams Hazardous Materials Handler Relationship Specialty Start Date End Date Karrie Tompkins MD PCP - General Family Medicine 11/21/18 01/19/24 documented as of this encounter
--- OUTSIDE RECORDS SUMMARY | 2024-04-11 13:20 | XMS_ITS | Encounter Summary ---
Author Organization [facility] Address [address] [place] [address] Phone Care Team Providers Care Warehouse Shipping Associate Name Role Phone Karrie Tompkins MD Primary Care Provider [phone] Encounter Details Date Type Department Care Team (Late st Contact Info) Description 09/08/2018 11:00 AM CDT Office Visit [facility] Nephrology and Hypertension [address] [place] [address], [address] [place] [address] Aubrey Reyna MD [address] [facility] [place] [address] Chronic kidney disease stage 3 (CMS-HCC); Diabetes [...] The patient had been following with her steam fitter supervisor maintenance in [place], [place] up until she moved to this [...] diabetes, and age-related change. As her previous steam fitter supervisor maintenance did an extensive work-up and evaluation of [...] Lab Routine Chronic kidney disease stage 3 ([facility]) Expected: 09/08/2018, Expires: 09/09/2019 Urinalysis, Routine Lab Routine Chronic kidney disease stage 3 ([facility]) Expected: 09/08/2018, Expires: 09/09/2019 Vitamin D, 25-Hydroxy, Serum Lab Routine Chronic kidney disease stage 3 ([facility]) Expected: 12/29/2018, Expires: 09/09/2019 documented as of this encounter Procedures Procedure Name Priority Date/Time Associated Diagnosis Comments VITAMIN D, 25-OH, TOTAL,IA Routine 09/24/2018 10:25 AM CDT TOTAL PROTEIN W/ CREATININE, URINE, RANDOM Routine 09/24/2018 10:25 AM CDT Chronic kidney disease stage 3 ([facility]) RENAL FUNCTION PANEL (RFP) Routine 09/24/2018 10:25 AM CDT Chronic kidney disease stage 3 ([facility]) URINALYSIS, ROUTINE Routine 09/24/2018 1 0:25 AM CDT PTH INTACT W/O CALCIUM, SERUM Routine 09/24/2018 10:25 AM CDT Chronic kidney disease stage 3 (CMS-HCC) documented in this encounter Results * (ABNORMAL) Vitamin d, 25-Oh, Total,Ia (09/24/2018 10:25 AM CDT) Pathologist [facility] Calcidiol, Serum/Plasma 27(L) 30 - 100 ng/mL [facility] (ST) Comment: Vitamin D Status ? 25-OH Vitamin D: Deficiency: ?<20 ng/mL Insufficiency: ? 20 - 29 ng/mL Optimal: ? > or = 30 ng/mL For 25-OH Vitamin D testing on patients on D2-supplementation and patients for whom quantitation of D2 and D3 fractions is required, the QuestAssureD(TM) 25-OH VIT D, (D2,D3), LC/MS/MS is recommended: order code 49598 (patients >2yrs). For more information on this test, go to: http://education.I & Combine/faq/UXG300 (This link is being provided for informational/educational purposes only.) 09/24/2018 10:2 5 AM CDT 09/24/2018 10:26 AM CDT Narrative [facility] ([facility]) - 09/25/2018 2:45 PM CDT FASTING:YES FASTING: YES Resulting Agency Comment Performing Organization Information: ?Site ID: [place] ?Name: [facility] ?Address: [id number] [place] [address] [place] [address] ?Director: Hakeem Jenkins D.O., MPH Aubrey Reyna MD LAB BLOOD ORDERABLES [facility] ([facility]) * (ABNORMAL) Urinalysis, Routine (09/24/2018 10:25 AM CDT) Pathologist [facility] Color of Urine YELLOW YELLOW QUEST [...] AM CDT 09/24/2018 10:26 AM CDT Narrative [facility]) - 09/25/2018 2:45 PM CDT FASTING:YES FASTING: YES Resulting Agency Comment Performing Organization Information: ?Site ID: [place] ?Name: [facility] ?Address: [facility] [place] [address] ?Director: Hakeem Jenkins D.O., MPH Aubrey Reyna MD LAB URINE ORDERABLES [facility] (ST) [...] Performing Organization Information: ?Site ID: [place] ?Name: [facility] ?Address: [address] [place] [address] ?Director: Hakeem Jenkins D.O., MPH Aubrey Reyna [...] Agency Comment Performing Organization Information: ?Site ID: [place] ?Name: [facility] ?Address: [address] [place] [address] ?Director: Hakeem Jenkins D.O., MPH Aubrey Reyna MD LAB BLOOD ORDERABLES [facility] ([facility] * (ABNORMAL) *Renal Function Panel (RFP) (09/24/2018 10:25 AM CDT) Glucose, Serum/Plasma 144(H) 65 - 99 mg/dL [facility] ([facility]) Comment: ? Fasting reference interval For someone without known diabetes, a glucose value >125 mg/dL indicates that they may have diabetes and this should be confirmed with a follow-up test. Urea nitrogen, Serum/Plasma (BUN) 43(H) 7 - 25 mg/dL [facility] ([facility]) Creatinine, Serum/Plasma 1.65(H) 0.50 - 0.99 mg/dL [facility] ([facility]) Comment: For patients >49 years of age, the reference limit for Creatinine is approximately 13% higher for people identified as -Marshallese. eGFR, non 32(L) > OR = 60 mL/min/1. 73m2 [facility] ([facility]) eGFR, 37(L) > OR = 60 mL/min/1. 73m2 [facility] ([facility]) Urea nitrogen/Creatinin e, Serum/Plasma 26(H) 6 - 22 (calc) [facility] ([facility]) Sodium, Serum/Plasma 135 135 - 146 mmol/L [facility] ([facility]) Potassium, Serum/Plasma 5.8(H) 3.5 - 5.3 mmol/L [facility] ([facility]) [...] Albumin, Serum/Plasma 4.4 3.6 - 5.1 g/dL [facility] Blood (Blood, Venous) 09/24/2018 10:25 AM CDT 09/24/2018 10:26 AM CDT Narrative [facility] - 09/25/2018 2:45 PM CDT FASTING:YES FASTING: YES Resulting Agency Comment Performing Organization Information: ?Site ID: [place] ?Name: [facility] ?Address: [address] [place] [address] ?Director: Hakeem Jenkins D.O., MPH Aubrey Reyna MD LAB BLOOD ORDERABLES [facility] documented in this encounter Visit Diagnoses Diagnosis Chronic kidney disease stage 3 ([facility]) Diabetes mellitus with renal manifestations ([facility]) Hypertensive renal disease documented in this encounter Care Teams Warehouse Shipping Associate Relationship Specialty Start Date End Date Karrie Tompkins MD [address] [place] [address] PCP - General 09/07/18 documented as of this encounter
--- OUTSIDE RECORDS SUMMARY | 2024-04-11 13:20 | XMS_ITS | Encounter Summary ---
Author Organization [facility] Address [address] [place] [address] Care Team Providers Care Insole Rounder Name Role Phone Farhat Crocker NP Primary Care Provider [phone] Reason for Visit * Reason Comments Follow-up Overdue annual f/u Hypertension Hyperlipidemia Shortness of Breath Encounter Details Date Type Department Care Team (Latest Contact Info) Description 01/20/2024 12:30 PM CDT Office Visit [facility] Cardiology [address] 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 Patient was in [place] and moved to this area recently. She was evaluated in [place] by stress test about couple years ago that was unremarkable. 02/23/2019 initial consultation: Complains of dyspnea on exertion for the last couple years specially walking half a mi or going up stairs. She did have chest pain, left-sided aggravated by moving the left shoulder and stress test in [place] to was negative. She admits to heartburn when she eats and relieved by antacids. This has not changed form many years. Denies lower limb edema, orthopnea, parox ysmal nocturnal dyspnea, dizziness, syncope. She reports that she was exposed to secondhand smokingall her life. Head brother at age 69 with massive myocardial infarction. 04/06/2019 follow-up visit with CATERING CHEF: She returns for follow-up of her dyspnea [...] chest pain recently. 10/12/2019 follow-up visit with CATERING CHEF: She returns for six-month follow-up. She reports [...] palpitations at night. 10/16/2021 follow-up visit with CATERING CHEF: She is here for annual follow-up. Over [...] the last year. 04/12/2022 office visit with CATERING CHEF. She returns to the office at my [...] facial fractures, and she was transferred from [place] to [facility] for further evaluation and treatment. Her carvedilol [...] She underwent upper back surgery at [facility] in May 2022 and did well. [...] Use: Not At Risk (06/20/2022) Received from [facility] Health AUDIT-C Frequency of Alcohol Consumption: Never [...] by mouth nightly, Disp: , Rfl: vitamins A,C,R-cgge-fkbtbv (PreserVision AREDS) 2,148 mcg-113 mg-45 mg-17.4mg tablet, [...] cardiac structure and function. Repeat echo at [facility] 2021 shows ejection fraction 72%, severe mitral annular calcification mild mitral stenosis. Consider repeating echo next visit. In regards to hypertension, blood pressure today 120/58. Continue carvedilol and lisinopril. She has a history of hyperlipidemia. Continue pravastatin. Lipid panel done today January 20 2024LDL 84, HDL 31 and triglycerides 131. CKD is followed by manager human resources Dr. Reyna. Continue Nephrology follow-up. She takes Lasix 20 mg every other day. Keep the previously scheduled follow-up with Dr. Murillo in 12months. Call us sooner with questions or concerns. Ori Murillo MD This note is dictated and transcribed using NeuroPace Direct Software. Fox Raiser variancesmay occur. Despite proofreading, typographical errors may [...] abnormality documented in this encounter Care Teams Insole Rounder Relationship Specialty Start Date End Date Farhat Crocker NP [address] [place] [address] PCP - General Family Medicine 01/20/24 documented as of this encounter
--- OUTSIDE RECORDS SUMMARY | 2024-04-11 13:20 | XMS_ITS | Referral Summary ---
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 Gender Identity Not on file Sexual Orientation [...] from Last 3 Months Insurance MEDICARE SOL[employer]IONS [facility] MEDICARE Address: [address] [address] [place] [id number] [address] H[address] REF [facility] MEDICARE Address: [address] [address] [place] [id number] [facility] MEDICARE Address: [address] [address] [place] [id number] MEDICARE [employer]IONS [facility] MEDICARE Address: [address] [address] [place] [id number] Care Teams Extra Gang Supervisor Relationship Specialty Start Date End Date Farhat Crocker NP [address] [place] [address] PCP - General Family Medicine 01/20/24
--- OUTSIDE RECORDS SUMMARY | 2024-04-11 13:20 | XMS_ITS | Encounter Summary ---
Author Organization [facility] Address [address] [place] [address] Phone Care Team Providers Care Digital Marketer Name Role Phone Karrie Tompkins MD Primary Care Provider [phone] Encounter Details Date Type Department Care Team (Late st Contact Info) Description 10/09/2018 Telephone [facility] Nephrology and Hypertension [facility], [address] [place] [address] Aubrey Reyna MD [address] [facility] [place] [address] Social History Tobacco Use Types Packs/Day Years [...] filedocumented in this encounter Care Teams Digital Marketer Relationship Specialty Start Date End Date Karrie Tompkins MD [address] [place] [address] [place] [address] PCP - General 09/07/18 documented as of this encounter
--- OUTSIDE RECORDS SUMMARY | 2024-04-11 13:21 | XMS_ITS | Encounter Summary ---
Author Organization [facility] Address [address] [facility] [address] [place] [address] Care Team Providers Care Bone Density Technician Name Role Phone Karrie Tompkins MD Primary Care Provider + Encounter Details Date Type Department Care Team (Late st Contact Info) Description 04/20/2019 Orders Only [facility] Cardiology [address] [facility] [address] [place] [address] Provider, MD Dinesh [address] [place], [place] [id number] Social History Tobacco Use Types Packs/Day Years [...] on file 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
--- OUTSIDE RECORDS SUMMARY | 2024-04-11 13:21 | XMS_ITS | Encounter Summary ---
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 Gender Identity Not on file Sexual Orientation Not on file documented as of this encounter Miscellaneous Notes * Telephone Encounter - Junie Holliday MA - 04/06/2019 2:56 PM CST Stanislav Torres lm for medical records at [phone] also faxed for request at [phone] [facility], ORY ASSEMBLER documented in this encounter Plan of Treatment Not on file documented as of this encounter Visit Diagnoses Not on filedocumented in this encounter Care Teams Clerk Of Works Relationship Specialty Start Date End Date Karrie Tompkins MD PCP - General Family Medicine 11/21/18 01/19/24 documented as of this encounter
--- OUTSIDE RECORDS SUMMARY | 2024-04-11 13:21 | XMS_ITS | Encounter Summary ---
Author Organization [facility] Address [address] [place] [address] Care Team Providers Care Wheelchair Rental Clerk Name Role Phone Karrie Tompkins MD Primary Care Provider + Reason for Referral * Cardiology (Routine) - Closed Specialty Diagnoses / Procedures Referred By Contac t Referred To Contact Diagnoses Essential hypertension Dyspnea on exertion Procedures Transthoracic Echo Complete W Doppler/CF Zaina Murillo MD [address] [address] Phone: tel: fax: [facility] Referral ID Status Reason Start Date Expiration Date Visits Re quested Visits Authorized [id number] Closed 04/11/2020 05/11/2021 1 1 D NATURALIST Reason for Visit * Reason Comments ANN 6 month f/u. Pt not having any problems at this time. 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 Gender Identity Not on file Sexual Orientation Not on file documented as of this encounter Last Filed Vital Signs Vital Sign Reading Time Taken Comments Blood Pressure 136/80 04/11/2020 10:32 AM FIELD NATURALIST Pulse 85 04/11/2020 10:32 AM FIELD NATURALIST Temperature - - Respiratory Rate - - Oxygen Saturation 91% 04/11/2020 10:32 AM FIELD NATURALIST Inhaled Oxygen Concentration - - Weight 75.8 kg (167 lb 1.6 oz) 04/11/2020 10:32 AM FIELD NATURALIST Height 152.4 cm (5') 04/11/2020 10:32 AM FIELD NATURALIST Body Mass Index 32.63 04/11/2020 10:32 AM FIELD NATURALIST documented in this encounter Progress Notes * Zaina Murillo MD - 04/11/2020 10:30 AM CST [facility] Cardiology [address] [place] [address] Date of Visit: 10/12/2019 Patient ID: Kandace [...] massive myocardial infarction. 04/06/2019 follow-up visit with SPRAY II PAINTER: She returns for follow-up of her dyspnea [...] chest pain recently. 10/12/2019 follow-up visit with SPRAY II PAINTER: She returns for six-month follow-up. She reports [...] unspecified whether stage 3a or 3b CKD ([facility]) Mixed hyperlipidemia Plan/Recommendations: Her dyspnea on exertion [...] in the past that was evaluated by nursery supervisor in the [facility] area where [...] This note is dictated and transcribed using [employer] Direct Software. Yarn Inspector variancesmay occur. Despite proofreading, typographical errors may occur. D NATURALIST documented in this encounter Miscellaneous Notes * Addendum Note - Nori Rogers MA - 04/11/2020 10:30 AM CSTAddended by: NORI ROGERS on: 04/11/2020 11:03 AM Modules accepted: Orders D NATURALIST documented in this encounter Plan of Treatment Not on file documented as of this encounter Procedures Procedure Name Priority Date/Time Associated Diagnosis Comments POCT LIPID PANEL Routine 04/11/2020 11:0 1 AM FIELD NATURALIST Mixed hyperlipidemia documented in this encounter Results * Transthoracic Echo Complete W Doppler/CF (04/27/2020 10:17 AM FIELD NATURALIST) Anatomical Region Laterality Modality Ultrasound 04/27/2020 10:1 7 AM FIELD NATURALIST Narrative 04/27/2020 12:39 PM FIELD NATURALIST [facility] Cardiology [address], [place] [address] [address] [facility], [place] [address] P:[phone] P:[phone] Echocardiographic Report Patient Name: KANDACE COLE : 11--1950 Study Date: 04/27/2020 10:17:22 AM Gender: F Tech: Location: [place] Ref.Provider: DANIELLE Height(Cm): 152 BSA: 1.73 Weight(Kg): [...] Findings: Interpretation Site: Exam was interpreted at [facility]. Left Ventricle: Normal left ventricular systolic [...] Signed By: Yusuf Novak MD 2020-04-27 12:39:52 FIELD NATURALIST Procedure Note Gustavo Novak MD - 04/27/2020 [facility] Cardiology [address] [facility] [address], [place] [address] [address] [facility] [address], [place] [address] P:[phone] P:[phone] Echocardiographic Report Patient Name: KANDACE COLEPatient ID: [id number] : [id number] Date: 04/27/2020 10:17:22 AM Gender: FAccession #: [id number] Tech: GMLocation: [place] Ref.Provider: Tiffanyight(Cm): 152 BSA: 1.73Weight(Kg): 75.75 Heart [...] 0.40 - 0.80 ] m/s MV Decel [id number] [ 150 - 200 ] msec PV Peak Vel1.35 [ 0.40 - 0.80 ] m/s E'0.07 E/E' 14 Findings: Interpretation Site: Exam was interpreted at [facility]. Left Ventricle: Normal left ventricular systolic [...] Signed By: Yusuf Novak MD 2020-04-27 12:39:52 FIELD NATURALIST Zaina Murillo MD CV ECHO PROCEDURES F inal Result * POCT lipid panel (04/11/2020 11:01 AM FIELD NATURALIST) Cholesterol, POC 160 mg/dL Comment:GLU = 162 HDL, POC 42 mg/dL Triglycerides, POC 253 mg/dL LDL Cholesterol POC 67 mg/dL Chol/HDL Ratio, POC 3.8 Non-HDL Cholesterol, POC 118 mg/dL Cholesterol Total, POC 160 mg/dL Capillary blood 04/11/2020 1 1:01 AM FIELD NATURALIST us Zaina Murillo MD POINT OF CARE [...] 04/07/2020 added in this encounter Care Teams Wheelchair Rental Clerk Relationship Specialty Start Date End Date Karrie Tompkins MD PCP - General Family Medicine 11/21/18 01/19/24 documented as of this encounter
--- OUTSIDE RECORDS SUMMARY | 2024-04-11 13:21 | XMS_ITS | Encounter Summary ---
Author Organization 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
--- OUTSIDE RECORDS SUMMARY | 2024-04-11 13:21 | XMS_ITS | Encounter Summary ---
Author Organization [facility] Address [address] [place] [address] Care Team Providers Care Typesetting Machine Operator/Tender Name Role Phone Karrie Tompkins MD Primary Care Provider + Reason for Visit * Reason Comments Shortness of Breath Hypertension Encounter Details Date Type Department Care Team (Late st Contact Info) Description 10/12/2019 10:30 AM CDT Office Visit [facility] Cardiology [address] [facility] [address] [place] [address] Rhea Torres, NEAL [address] [facility] [address] [place] [address] Dyspnea on exertion (Primary Dx); [...] file Legal Sex Female 8:14 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 Patient was in [place] and moved to this area recently. She was evaluated in [place] by stress test about couple years ago [...] massive myocardial infarction. 04/06/2019 follow-up visit with RECRUITMENT CONSULTANT: She returns for follow-up of her dyspnea [...] chest pain recently. 10/12/2019 follow-up visit with RECRUITMENT CONSULTANT: She returns for six-month follow-up. She reports [...] in the past that was evaluated by bomb squad officer in the [facility] area where she previously lived. [...] This note is dictated and transcribed using [employer] Fluency Direct Software. Manager Safe variancesmay occur. Despite proofreading, typographical errors may [...] 1 added in this encounter Care Teams Typesetting Machine Operator/Tender Relationship Specialty Start Date End Date Karrie Tompkins MD PCP - General Family Medicine 11/21/18 01/19/24 documented as of this encounter
--- OUTSIDE RECORDS SUMMARY | 2024-04-11 13:21 | XMS_ITS | Encounter Summary ---
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
--- OUTSIDE RECORDS SUMMARY | 2024-04-11 13:21 | XMS_ITS | Encounter Summary ---
Author Organization [facility] Address [address] [place] [address] Care Team Providers Care General Distillery Worker Name Role Phone Karrie Tompkins MD Primary Care Provider + Reason for Visit * Reason Comments Annual Exam Encounter Details Date Type Department Care Team (Late st Contact Info) Description 10/16/2021 1:30 PM CDT Office Visit [facility] Cardiology [address] [facility] [address] [facility] [address] [place] [address] Rhea Torres NP [address] [facility] [address] [place] [address] Dyspnea on exertion (Primary Dx); [...] on file 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 [facility] Cardiology [address] [place] [address] Date of Visit: 10/16/2021 Patient ID: Kandace [...] for dyspnea on exertion. Patient was in [place] and moved to this area recently. She was evaluated in [place] by stress test about couple years ago that was unremarkable. 02/23/2019 initial consultation: Complains of dyspnea on exertion for the last couple years specially walking half a mi or going up stairs. She did have chest pain, left-sided aggravated by moving the left shoulder and stress test in [place] to was negative. She admits to heartburn when she eats and relieved by antacids. This has not changed form many years. Denies lower limb edema, orthopnea, parox ysmal nocturnal dyspnea, dizziness, syncope. She reports that she was exposed to secondhand smokingall her life. Head brother at age 69 with massive myocardial infarction. 04/06/2019 follow-up visit with OPERA SINGER: She returns for follow-up of her dyspnea [...] chest pain recently. 10/12/2019 follow-up visit with OPERA SINGER: She returns for six-month follow-up. She reports [...] palpitations at night. 10/16/2021 follow-up visit with OPERA SINGER: She is here for annual follow-up. Over [...] modifications. CKD is now being followed by firearms specialist. She was recently started on calcitriol. Continue [...] concerns. 10/16/2021 CYNDI Marcum- Nurse Practitioner with [facility] Cardiology This note is dictated and transcribed using [employer] Direct Software. Shovel Oiler variancesmay occur. Despite proofreading, typographical errors may [...] 07/20/2021 added in this encounter Care Teams General Distillery Worker Relationship Specialty Start Date End Date Karrie Tompkins MD PCP - General Family Medicine 11/21/18 01/19/24 documented as of this encounter
--- OUTSIDE RECORDS SUMMARY | 2024-04-11 13:21 | XMS_ITS | Encounter Summary ---
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
--- OUTSIDE RECORDS SUMMARY | 2024-04-11 13:21 | XMS_ITS | Encounter Summary ---
Author Organization [facility] Address [address] [place] [address] Care Team Providers Care Slip Maker Name Role Phone Karrie Tompkins MD Primary Care Provider + Reason for Visit * Reason Comments Follow-up HTN,HLD Encounter Details Date Type Department Care Team (Late st Contact Info) Description 04/06/2019 10:30 AM DAIRY POWDER MIXER OPERATOR Office Visit [facility] Cardiology [address] [email or web address] [address] [place] [address] Rhea Torres, NEAL [address] [facility] [address] [place] [address] Dyspnea on exertion (Primary Dx); [...] on file Legal Sex Female 8:14 PM DAIRY POWDER MIXER OPERATOR Gender Identity Not on file Sexual Orientation Not on file documented as of this encounter Last Filed Vital Signs Vital Sign Reading Time Taken Comments Blood Pressure 140/76 04/06/2019 10:42 AM DAIRY POWDER MIXER OPERATOR Pulse 68 04/06/2019 10:42 AM DAIRY POWDER MIXER OPERATOR Temperature - - Respiratory Rate - - Oxygen Saturation 99% 04/06/2019 10:42 AM DAIRY POWDER MIXER OPERATOR Inhaled Oxygen Concentration - - Weight 69.4 kg (153 lb) 04/06/2019 10:42 AM DAIRY POWDER MIXER OPERATOR Height 154.9 cm (5' 1 ) 04/06/2019 10:42 AM DAIRY POWDER MIXER OPERATOR Body Mass Index 28.91 04/06/2019 10:42 AM DAIRY POWDER MIXER OPERATOR documented in this encounter Progress Notes * [...] massive myocardial infarction. 04/06/2019 follow-up visit with COFFEE ROASTER: She returns for follow-up of her dyspnea [...] copy of her stress test done at liquor runner's office in the [facility] area couple of years ago. Counseling performed at this visit included signs and symptoms of CHF exacerbation and the difference between cardiac and noncardiac chest pain. Return to the office to see Dr. Murillo in 6 months. Call us sooner with questions or concerns. Rhea Torres, CYNDI- Nurse Practitioner with [facility] This note is dictated and transcribed using [employer] Direct Software. Industrial Cafeteria Manager variancesmay occur. Despite proofreading, typographical errors may occur. Cosigned by Ori Murillo MD at 04/07/2019 3:22 PM DAIRY POWDER MIXER OPERATOR Y POWDER MIXER OPERATOR Y POWDER MIXER OPERATOR documented in this encounter Plan of [...] 04/11/2020 added in this encounter Care Teams Slip Maker Relationship Specialty Start Date End Date Karrie Tompkins MD PCP - General Family Medicine 11/21/18 01/19/24 documented as of this encounter
--- OUTSIDE RECORDS SUMMARY | 2024-04-11 13:21 | XMS_ITS | Encounter Summary ---
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 BMI: 26.4 Prior spine surgery: YES, 1986-LUMBAR LAMINECTOMY AND 2006-CERVICAL DISC REPLACEMENT [facility] Physical therapy NO Injections NO Are you a current smoker: No Insurance: [facility] MEDICARE HMO Litigation: NO Imaging Done: Yes MRI: 08/2021 Imaging Location: [facility] PT TO BRING CD AND ARRIVE 45 MINS EARLY documented in this encounter Plan of Treatment Not on file documented as of this encounter Visit Diagnoses Not on filedocumented in this encounter Care Teams Help Desk Agent Relationship Specialty Start Date End Date Karrie Tompkins MD PCP - General Family Medicine 11/21/18 01/19/24 documented as of this encounter
--- OUTSIDE RECORDS SUMMARY | 2024-04-11 13:21 | XMS_ITS | Encounter Summary ---
Author Organization [facility] Address [address] [place] [address] Care Team Providers Care Switchman Supervisor Name Role Phone Karrie Tompkins MD Primary Care Provider + Reason for Visit * Reason Onset Date Comments Reschedule 04/10/2021 Encounter Details Date Type Department Care Team (Late st Contact Info) Description 04/10/2021 Telephone [facility] Cardiology [address] [place] [address] Yaritza Rogers MA Reschedule Social [...] on file Legal Sex Female 8:14 PM BENEFITS DIRECTOR Gender Identity Not on file Sexual Orientation Not on file documented as of this encounter Miscellaneous Notes * Telephone Encounter - Yaritza Rogers MA - 04/10/2021 3:25 PM CST 04/10/21- YURY we need to r/s. EMMIE out of office on 04/17/21 FITS DIRECTOR documented in this encounter Plan of Treatment Not on file documented as of this encounter Visit Diagnoses Not on filedocumented in this encounter Care Teams Switchman Supervisor Relationship Specialty Start Date End Date Karrie Tompkins MD PCP - General Family Medicine 11/21/18 01/19/24 documented as of this encounter
--- OUTSIDE RECORDS SUMMARY | 2024-04-11 13:21 | XMS_ITS | Encounter Summary ---
Author Organization [facility] Address [address] [place] [address] Care Team Providers Care District Superintendent Name Role Phone Karrie Tompkins MD Primary Care Provider + Reason for Visit * Cardiology (Routine) - Closed Specialty Diagnoses / Procedures Referred By Contac t Referred To Contact Diagnoses Essential hypertension Dyspnea on exertion Procedures Transthoracic Echo Complete W Doppler/CF Zaina Murillo MD [facility] [address] [address] Phone: tel: fax: [facility] Referral ID Status Reason Start Date Expiration Date Visits Re quested Visits Authorized [id number] Closed 04/11/2020 05/11/2021 1 1 Encounter Details Date Type Department Care Team (Latest Contact Info) Description 04/27/2020 11:15 AM PRINCIPAL SOFTWARE ARCHITECT Ancillary Procedure [facility] Cardiology [address] [facility] [address] [place] [address] Essential hypertension; Dyspnea on exertion [...] on file Legal Sex Female 8:14 PM PRINCIPAL SOFTWARE ARCHITECT Gender Identity Not on file Sexual [...] COMPLETE W DOPPLER/CF Routine 04/27/2020 10:17 AM PRINCIPAL SOFTWARE ARCHITECT Essential hypertension Dyspnea on exertion documented in this encounter Results * Transthoracic Echo Complete W Doppler/CF (04/27/2020 10:17 AM PRINCIPAL SOFTWARE ARCHITECT) Anatomical Region Laterality Modality Ultrasound 04/27/2020 10:1 7 AM PRINCIPAL SOFTWARE ARCHITECT Narrative 04/27/2020 12:39 PM PRINCIPAL SOFTWARE ARCHITECT [facility] Cardiology [address], [place] [id number] [address] [facility] [address] [address] P:[phone] P:[phone] Echocardiographic Report Patient Name: KANDACE COLE : 1950 Study Date: 04/27/2020 10:17:22 AM Gender: F Tech: Location: [place] Ref.Provider: DANIELLE Height(Cm): 152 BSA: 1.73 Weight(Kg): [...] Findings: Interpretation Site: Exam was interpreted at [facility]. Left Ventricle: Normal left ventricular systolic function. [...] Signed By: Yusuf Novak MD 2020-04-27 12:39:52 PRINCIPAL SOFTWARE ARCHITECT Procedure Note Gustavo Novak MD - 04/27/2020 [facility] Cardiology [address] [facility] [address] [address] [address] [facility] [address], [place] [address] P:[phone] P:[phone] Echocardiographic Report Patient Name: KANDACE COLEPatient ID: [id number] : [id number] Date: 04/27/2020 10:17:22 AM Gender: FAccession #: [id number] Tech: GMLocation: [place] Ref.Provider: Tiffanyight(Cm): 152 BSA: 1.73Weight(Kg): 75.75 Heart [...] 0.40 - 0.80 ] m/s MV Decel [id number] [ 150 - 200 ] msec PV Peak Vel1.35 [ 0.40 - 0.80 ] m/s E'0.07 E/E' 14 Findings: Interpretation Site: Exam was interpreted at [facility]. Left Ventricle: Normal left ventricular systolic function. [...] Signed By: Yusuf Novak MD 2020-04-27 12:39:52 PRINCIPAL SOFTWARE ARCHITECT Zaina Murillo MD CV ECHO PROCEDURES F [...] For 1 dose Given 04/27/2020 11:53 AM PRINCIPAL SOFTWARE ARCHITECT 1 mL documented in this encounter Orders Medications Ordered That Florentino ht Not Have Been Administered Count Last Ordered Date First Ordered Date perflutren lipid (DEFINITY) 1.5 mL in sodium chloride 0.9% 10 mL syringe 1 04/27/2020 documented in this encounter Care Teams District Superintendent Relationship Specialty Start Date End Date Karrie Tompkins MD PCP - General Family Medicine 11/21/18 01/19/24 documented as of this encounter
--- OUTSIDE RECORDS SUMMARY | 2024-04-11 13:21 | XMS_ITS | Encounter Summary ---
Author Organization [facility] Address [address] [place] [address] Care Team Providers Care Supervisor Painting Department Name Role Phone Karrie Tompkins MD Primary Care Provider + Reason for Visit * Reason Onset Date Comments Retrieved outside records 04/30/2019 Encounter Details Date Type Department Care Team (Late st Contact Info) Description 04/30/2019 Documentation [facility] Cardiology [address] [facility] [address] [facility] [address] [place] [address] Rhea Torres NP [address] [place], [place] [id number] Retrieved outside records Social History Tobacco Use [...] on file Legal Sex Female 8:14 PM BALLPOINT PEN CARTRIDGE TESTER Gender Identity Not on file Sexual Orientation [...] werenot able to retrieve the stress test. POINT PEN CARTRIDGE TESTER documented in this encounter Plan of Treatment Not on file documented as of this encounter Visit Diagnoses Not on filedocumented in this encounter Care Teams Supervisor Painting Department Relationship Specialty Start Date End Date Karrie Tompkins MD PCP - General Family Medicine 11/21/18 01/19/24 documented as of this encounter
--- OUTSIDE RECORDS SUMMARY | 2024-04-11 13:21 | XMS_ITS | Encounter Summary ---
Author Organization [facility] Address [address] [place] [address] Care Team Providers Care Timekeeper Supervisor Name Role Phone Karrie Tompkins MD Primary Care Provider + Reason for Visit * Reason Comments Follow-up 6 mo follow up on HT N, ANN, HLD Encounter Details Date Type Department Care Team (Late Contact Info) Description 10/10/2020 11:00 AM CDT Office Visit [facility] Cardiology [address] [place] [phone] Ori Murillo MD [address] [place] [id number] Dyspnea on exertion (Primary Dx); Essential [...] on file Legal Sex Female 8:14 PM SOFTWARE DEVELOPMENT INTERN Gender Identity Not on file Sexual Orientation [...] Murillo MD - 10/10/2020 11:00 AM CDT [facility] Cardiology [address] [place] [address] Date of Visit: 10/12/2019 Patient ID: Kandace [...] for dyspnea on exertion. Patient was in [place] and moved to this area recently. She was evaluated in [place] by stress test about couple years ago that was unremarkable. 02/23/2019 initial consultation: Complains of dyspnea on exertion for the last couple years specially walking half a mi or going up stairs. She did have chest pain, left-sided aggravated by moving the left shoulder and stress test in [place] to was negative. She admits to heartburn when she eats and relieved by antacids. This has not changed form many years. Denies lower limb edema, orthopnea, parox ysmal nocturnal dyspnea, dizziness, syncope. She reports that she was exposed to secondhand smokingall her life. Head brother at age 69 with massive myocardial infarction. 04/06/2019 follow-up visit with COMMUNITY ADMINISTRATOR: She returns for follow-up of her [...] chest pain recently. 10/12/2019 follow-up visit with COMMUNITY ADMINISTRATOR: She returns for six-month follow-up. She [...] unspecified whether stage 3a or 3b CKD (CMS/LTAC, [facility]) Plan/Recommendations: Her dyspnea on exertion is unchanged. [...] in the past that was evaluated by director medical surgical in the [facility] area where she previously lived. [...] This note is dictated and transcribed using [employer] Software. Claims Service Adjustor variancesmay occur. Despite proofreading, typographical errors may [...] 10/16/2021 added in this encounter Care Teams Timekeeper Supervisor Relationship Specialty Start Date End Date Karrie Tompkins MD PCP - General Family Medicine 11/21/18 01/19/24 documented as of this encounter
--- OUTSIDE RECORDS SUMMARY | 2024-04-11 13:21 | XMS_ITS | Encounter Summary ---
Author Organization [facility] Address [address] [place] [address] Care Team Providers Care Brush Clearing Laborer Name Role Phone Karrie Tompkins MD Primary Care Provider + Reason for Visit * Reason Comments New Patient DYSPNEA * Cardiology (Routine) - Closed Specialty Diagnoses / Procedures Referred By Contac t Referred To Contact Cardiology Diagnoses Dyspnea, unspecified type Karrie Tompkins MD Phone: tel: fax: [facility] [address] [place] [address] [place] [phone] Phone: tel: fax: Referral ID Status Reason Start Date Expiration Date V isits Requested Visits Authorized [id number] Closed Specialty Services Required 11/21/2018 06/01/2020 1 1 Encounter Details Date Type Department Care Team (Late Contact Info) Description 02/23/2019 9:30 AM CHART CLERK Office Visit [facility] [address] [place] [address] [address] [place] [phone] Ori Murillo MD [address] [place] [id number] Dyspnea on exertion (Primary Dx); Dyspnea, unspecified type; Essential hypertension; Mixed hyperlipidemia; Type 2 diabetes mellitus with stage 3 chronic kidney disease, without long-term current use of insulin ([facility]) Social History Tobacco Use Types [...] on file Legal Sex Female 8:14 PM CHART CLERK Gender Identity Not on file Sexual Orientation Not on file documented as of this encounter Last Filed Vital Signs Vital Sign Reading Time Taken Comments Blood Pressure 120/60 02/23/2019 9:22 AM CHART CLERK Pulse 71 02/23/2019 9:22 AM CHART CLERK Temperature - - Respiratory Rate - - Oxygen Saturation 98% 02/23/2019 9:22 AM CHART CLERK Inhaled Oxygen Concentration - - Weight 72.1 kg (159 lb) 02/23/2019 9:22 AM CHART CLERK Height 154.9 cm (5' 1 ) 02/23/2019 9:22 AM CHART CLERK Body Mass Index 30.04 02/23/2019 9:22 AM CHART CLERK documented in this encounter Progress Notes * [...] for dyspnea on exertion. Patient was in [place] and moved to this area recently. She was evaluated in [place] by stress test about couple years ago that was unremarkable. Complains of dyspnea on exertion for the last couple years specially walking half a mi or going up stairs. She did have chest pain, left-sided aggravated by moving the left shoulder and stress test in [place] to was negative. She admits to heartburn [...] Normal sinus rhythm Echo 10/30/2018. Done at [facility]. Ejection fraction 65%, abnormal diastolic function, ASSESSMENT Diagnoses and all orders for this visit: Dyspnea on exertion (Primary) Dyspnea, unspecified type - Ambulatory referral to Cardiology Essential hypertension Mixed hyperlipidemia Type 2 diabetes mellitus with stage 3 chronic kidney disease, without long-term current use of insulin ([facility]) PLAN/RECOMMENDATIONS -in regards for dyspnea on exertion, the echocardiogram shows normal systolic function and abnormaldiastolic function. She looks euvolemic on physical exam today. We will obtain the stress test results that were done in [place] 2 years ago. COPD can contribute to [...] office in 6 weeks. Ori Murillo MD T CLERK documented in this encounter Miscellaneous Notes * Addendum Note - Junie Oro MA - 02/23/2019 9:30 AM CSTAddended by: JUNIE ORO on: 02/23/2019 05:42 PM Modules accepted: Orders T CLERK documented in this encounter Plan of Treatment Not on file documented as of this encounter Procedures Procedure Name Priority Date/Time Associated Diagnosis Comments POCT LIPID PANEL Routine 02/23/2019 5:40 PM CHART CLERK Mixed hyperlipidemia documented in this encounter Results * POCT lipid panel (02/23/2019 5:40 PM CHART CLERK) Cholesterol, POC 158 mg/dL HDL, POC 33 mg/dL Triglycerides, POC 178 mg/dL LDL Cholesterol POC 89 mg/dL Chol/HDL Ratio, POC 4.7 Non-HDL Cholesterol, POC 124 mg/dL Cholesterol Total, POC 158 mg/dL Blood specimen (specimen) 02/23/2019 5:40 PM CHART CLERK Ori Murillo MD POINT OF CARE TEST O RDERABLES Final Result documented in this encounter Visit Diagnoses Diagnosis Dyspnea on exertion- Primary Other dyspnea and respiratory abnormality Dyspnea, unspecified type Essential hypertension Unspecified essential hypertension Mixed hyperlipidemia Type 2 diabetes mellitus with stage 3 chronic kidney disease, without long-term current use of insulin ([facility]) documented in this encounter Historical [...] 02/23/2019 documented in this encounter Care Teams Brush Clearing Laborer Relationship Specialty Start Date End Date Karrie Tompkins MD PCP - General Family Medicine 11/21/18 01/19/24 documented as of this encounter
--- NOTE | 2024-04-11 13:38 | PCOTNOTE ---
Attempted OT evaluation. Pt. out of room. Will attempt again as able.
[2024-04-11] MEDS: LATANOPROST 0.005% OP SOLN 2.5 ML BTL 1 DROP EACH EYE (14:31)
[2024-04-11] MEDS: ONDANSETRON INJ 4 MG/2 ML VIAL IV PUSH (16:07)
--- NOTE | 2024-04-11 18:05 | PC.NURSE ---
This patient, Kandace Cole, was received from [facility] on 04/11/24 at 1805. Patient/family oriented to unit policies and routines. Report per SANTI Delcid
--- NOTE | 2024-04-11 18:10 | PC.NURSE ---
pt moved to room 326 via bed accompanied by staff- report was given to Radha HANCOCK- belongings sent with pt - grandson notified of room transfer
--- OUTSIDE RECORDS SUMMARY | 2024-04-11 21:56 | XMS_ITS | Patient Health Summary ---
Author Organization [facility] Address [address] [place] [address] Care Team Providers Care Seo Team Lead Name Role Phone Karrie Phillips MD Primary Care Provider [phone] Note from [facility],non-owned Affiliates and Associated Physician Practices is amultiple site organization consisting of ambulatory clinics and hospital sitesin [place], [place], [place] and [place]. This disclosure is being madepursuant to the Care Everywhere program and may not contain all information available regarding this patient. Last updated 17.[facility] Allergies * Cyclobenzaprine * Eggs * Fluoxetine [...] / 24 hours. * saline nasal spray ([place]; Baby [place]) 0.65 % nasal spray(Started 02/19/2022) [place] 1 (one) spray into each nostril [...] heating? Not hard at all 06/04/2022 [facility] [place] of Occupat ional Health - Occupational Stress [...] place to sleep or slept in a fci (including now)? No 06/04/2022 Sex and Gender [...] lb 3.2 oz) 06/04/2023 2:02 P M MACHINE WIPER Height 154.9 cm (5' 1 ) 12/04/2022 2:47 PM CDT Body Mass Index 28.57 12/04/2022 2:47 PM CDT Medical Devices Implanted Type Area Veterinary Virologist Device Identifier Shelf Expiration Date Model / Serial / Lot Jean Bone Void 10ml Dbm Grftn Algrf Ptty Implanted:Qty: 1 on 06/04/2022 by Deon Taylor MD at [facility] N/A: Spine [employer] 05/04/2025 [id number] / / [id number] 90mm Rods Implanted:Qty: 2 on 06/04/2022 by Deon Taylor MD at [facility] N/A: Spine Synthes Spine [id number] / / Jean Bone Void 10ml Dbm Grftn Algrf Ptty Implanted:Qty: 1 on 06/04/2022 by Deon Taylor MD at [facility] N/A: Spine [employer] Inc 05/04/2025 [id number] / / [id number] Graft Bone Canc 4-9.5mm 15cc Frzdr Chp Implanted:Qty: 1 on 06/04/2022 by Deon Taylor MD at [facility] N/A: Spine [employer]ource 02/26/2027 [id number] / / [id number] Graft Bone Canc 4-9.5mm 30cc Algrf Frzdr Implanted:Qty: 1 on 06/04/2022 by Deon Taylor MD at [facility] N/A: Spine [employer] 12/27/2025 [id number] / / [id number] 3.5 X 14mm Screw Implanted:Qty: 4 on 06/04/2022 by Deon Taylor MD at [facility] N/A: Spine Synthes Spine [id number] / / 4.0x 20mm Screw Implanted:Qty: 2 on 06/04/2022 by Deon Taylor MD at [facility] N/A: Spine Synthes Spine [id number] / / 5.0 X 24mm Screw Implanted:Qty: 2 on 06/04/2022 by Deon Taylor MD at [facility] N/A: Spine [employer]ynthes Spine [id number] / / 4.5 X 26mm Screw Implanted:Qty: 2 on 06/04/2022 by Deon Taylor MD at [facility] N/A: Spine Synthes Spine [id number] / / Screw Caps Implanted:Qty: 10 on 06/04/2022 by Deon Taylor MD at [facility] N/A: Spine [employer]ynthes Spine [id number] / / Procedures * XR CERVICAL SPINE [...] 06/21/2022) Performed for Coffee ground emesis * [place] ESOPHAGEAL CAPSULE ENDOSCOPY(Performed 06/21/2022) Performed for Coffee ground emesis * [place] ED EGD FLEX TRANSORAL DX(Performed 06/21/2022) Performed [...] closed fractures of facial bone, initial encounter ([facility]) * GLUCOSE - POINT OF CARE(Performed 02/15/2022) [...] SPINE 2 OR 3VW (06/04/2023 1:57 PM MACHINE WIPER) Only the most recent of7 resultswithin the time period is included. Anatomical Region Laterality Modality Spine Radiographic Vivian ging 06/04/2023 1:57 PM MACHINE WIPER Impressions 06/04/2023 2:28 PM MACHINE WIPER IMPRESSION: Redemonstration of posterior instrumented spinal fusion hardware of C4-T2 with unchanged alignment. Report dictated by Joey Herman MD, (residential manager). I, Petar Spears MD have personally reviewed and interpreted this examination/study. > Interpreting Provider: Petar Spears MD on 06/04/2023 2:28 PM Narrative 06/04/2023 2:28 PM MACHINE WIPER PROCEDURE: ??XR CERVICAL SPINE 2 OR 3VW, DATE/TIME OF EXAM: ??06/04/2023 1:57 PM, LOCATION ??[facility] INDICATION: Z98.1: S/P cervical spinal [...] DATE/TIME OF EXAM: 41:57 PM, LOCATION [facility] INDICATION: Z98.1: S/P cervical spinal [...] Report dictated by Joey Herman MD, (residential manager). Petar Narvaez MD have personally reviewed and [...] MD on 07/18/2022 11:31 AM Lyla Blackwell SUPERVISOR SHEET MANUFACTURING-CAN INTAKE WORKER DIAGNOSTIC IMAG ING ORDERABLES * (ABNORMAL) CBC W/O DIFFERENTIAL (06/23/2022 3:47 AM CDT) Only the most recent of11 resultswithin the time period is included. WBC 7.7 3.5 - 10.5 10? 3 /uL 06/23/2022 4:17 AM CDT [facility] RBC 2.66(L) 3.80 - 5.20 10? 6 /uL 06/23/2022 4:17 AM CDT [facility] Hemoglobin 8.0(L) 12.0 - 15.6 g/dL 06/23/2022 4:17 AM [facility] Hematocrit 24.2(L) 35.0 - 45.0 % 06/23/2022 4:17 AM [facility] MCV 91.0 80.7 - 98.3 fL 06/23/2022 4:17 AM [facility] MCH 30.1 26.7 - 34.0 pg 06/23/2022 4:17 AM [facility] MCHC 33.1 30.8 - 35.9 g/dL 06/23/2022 4:17 AM [facility] RDW-SD 45.0 36.0 - 50.0 fL 06/23/2022 4:17 AM [facility] RDW-CV 13.7 11.2 - 14.8 % 06/23/2022 4:17 AM [facility] Platelet Count 305 150 - 400 10? 3 /uL 06/23/2022 4:17 AM [facility] MPV 9.7 9.4 - 12.9 fL 06/23/2022 4:17 AM [facility] nRBC Absolute 0.00 0 10? 3 /uL 06/23/2022 4:17 AM [facility] nRBC Auto 0.0 0 /100 WBC 06/23/2022 4:17 AM [facility] Blood BLOOD SPECIMEN / Unknown Lab Venipuncture / Unknown 06/23/2022 3:47 AM CDT 06/23/2022 4:10 AM CDT Ori Iyer PA-C LAB - HEMATOLOGY OR DERABLES [facility] [address] [place] [address], [facility] [phone] * (ABNORMAL) BASIC METABOLIC PANEL (CALCIUM TOTAL) (06/23/2022 3:06 AM CDT) Only the most recent of10 resultswithin the time period is included. BUN 10 7 - 26 mg/dL 06/23/2022 4:38 AM [facility] Creatinine 1.09(H) 0.56 - 0.96 mg/dL 06/23/2022 4:38 AM [facility] Sodium 131(L) 136 - 145 mmol/L 06/23/2022 4:38 AM [facility] Potassium 4.2 3.5 - 4.5 mmol/L 06/23/2022 4:38 AM [facility] Chloride 100 98 - 107 mmol/L 06/23/2022 4:38 AM [facility] CO2 22 22 - 29 mmol/L 06/23/2022 4:38 AM [facility] Glucose 111 70 - 115 mg/dL 06/23/2022 4:38 AM [facility] Calcium 8.2(L) 8.4 - 10.2 mg/dL 06/23/2022 4:38 AM [facility] Anion Gap 13 8 - 18 06/23/2022 4:38 AM [facility] BUN/Creatinine Ratio 9 7 - 23 06/23/2022 4:38 AM [facility] Osmolality Calculated 272 270 - 300 mOsm/kg 06/23/2022 4:38 AM [facility] eGFR by CKD-EPI 54(L) >=90 mL/min/1.7 3 m2 06/23/2022 4:38 AM [facility] Blood BLOOD SPECIMEN / Unknown Lab Venipuncture / Unknown 06/23/2022 3:06 AM CDT 06/23/2022 4:03 AM T Anabell Hernandez PA-C LAB - CHEMISTRY ORD ERABLES [facility] [address] [place] [address], [facility] [phone] * MAGNESIUM BLOOD (06/23/2022 3:06 AM CDT) Only the most recent of6 resultswithin the time period is included. Magnesium 2.3 1.6 - 2.6 mg/dL 06/23/2022 4:41 AM [facility] Blood BLOOD SPECIMEN / Unknown Lab Venipuncture / Unknown 06/23/2022 3:06 AM CDT 06/23/2022 4:03 AM CDT Anabell Hernandez PA-C LAB - CHEMISTRY ORD ERABLES Performing Organization Address City/[facility]/ZIP Co de Phone Number [facility] [address] [place] [address], [facility] [phone] * GLUCOSE - POINT OF CARE (06/22/2022 4:11 PM CDT) Only the most recent of28 resultswithin the time period is included. Glucose WB/POC 105 70 - 115 mg/dL 06/22/2022 4:12 PM CDT [facility] Specimen Type Arterial 06/22/2022 4:12 PM CDT [facility] Blood BLOOD SPECIMEN / Unknown 06/22/2022 4:11 PM CDT 06/22/2022 4:12 PM CDT Abeba Will DO LAB - POINT OF CARE ORDERABLES Performing Organization Address [facility]/ZIP Co de Phone Number [address] [address], [place] [phone] * (ABNORMAL) RENAL FUNCTION PANEL (06/22/2022 2:34 AM CDT) Only the most recent of2 resultswithin the time period is included. BUN 13 7 - 26 mg/dL 06/22/2022 3:29 AM [facility] Creatinine 1.07(H) 0.56 - 0.96 mg/dL 06/22/2022 3:29 AM [facility] Sodium 132(L) 136 - 145 mmol/L 06/22/2022 3:29 AM T [facility] Potassium 3.8 3.5 - 4.5 mmol/L 06/22/2022 3:29 AM [facility] Chloride 99 98 - 107 mmol/L 06/22/2022 3:29 AM [facility] CO2 25 22 - 29 mmol/L 06/22/2022 3:29 AM T [facility] Glucose 126(H) 70 - 115 mg/dL 06/22/2022 3:29 AM T [facility] Albumin 2.8(L) 3.4 - 5.0 g/dL 06/22/2022 3:29 AM [facility] Calcium 8.5 8.4 - 10.2 mg/dL 06/22/2022 3:29 AM [facility] Phosphorus 2.8(L) 2.9 - 5.1 mg/dL 06/22/2022 3:29 AM [facility] Anion Gap 12 8 - 18 06/22/2022 3:29 AM [facility] BUN/Creatinine Ratio 12 7 - 23 06/22/2022 3:29 AM [facility] Osmolality Calculated 276 270 - 300 mOsm/kg 06/22/2022 3:29 AM [facility] eGFR by CKD-EPI 55(L) >=90 mL/min/1.7 3 m2 06/22/2022 3:29 AM [facility] Blood BLOOD SPECIMEN / Unknown Lab Venipuncture / Unknown 06/22/2022 2:34 AM CDT 06/22/2022 3:02 AM CDT Ori Iyer PA-C LAB - CHEMISTRY ORD ERABLES [facility] [address] [place] [address], [facility] [phone] * CORTISOL BLOOD AM (06/22/2022 2:34 AM CDT) Only the most recent of4 resultswithin the time period is included. Cortisol AM 14.3 3.7 - 19.4 ug/dL 06/22/2022 3:49 AM CDT [facility] Blood BLOOD SPECIMEN / Unknown Lab Venipuncture / Unknown 06/22/2022 2:34 AM CDT 06/22/2022 3:02 AM CDT Narrative [facility] - 06/22/2022 3:49 AM CDT Normal cortisol levels are generally highest in the morning hours and lowest from late evening through the bottle house quality control technician 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 ??The PM measurements of cortisol run approximately one-half to one-third of the AM values. Ori Iyer PA-C LAB - CHEMISTRY ORD ERABLES [facility] [address] [place] [address], [facility] [phone] * PATHOLOGY TISSUE (06/21/2022 4:40 PM CDT) Case Report Surgical Pathology Report ? Case: [id number] ? Authorizing Provider: ??Carmen Morales MD ? Collected: ? 06/21/2022 04:40 PM ? Ordering Location: ? [facility] ?Received: ?06/22/2022 08:59 AM ? Pathologist: ? Hansa Gusman MD ? Specimen: ?Small Bowel, small bowel biopsy r/o celiac ? 06/25/2022 2:27 PM CDT [facility] Final Diagnosis Small intestine, small bowel, biopsy (A): - No histopathologic abnormality - Intact villous and crypt architecture without increased intraepithelial lymphocytes 06/25/2022 2:27 PM CDT [facility] Microscopic Description and Comment Microscopic examination substantiates the final diagnosis. 06/25/2022 2:27 PM T [facility] Clinical History The patient is a 72-year-old woman presented with coffee-ground emesis who underwent upper GI endoscopy. 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 Duodenal bulb erythema, biopsied for evaluation of celiac disease. 06/25/2022 2:27 PM T [facility] Gross Description The requisition and specimen(s) are identified with the patient's name Kandace Cole. Received in formalin, specimen A , are 5 pink-freeman tissues, 0.3-0.9 cm in greatest dimension and 2.3 x 0.3 x 0.2 cm in aggregate, submitted in toto in cassette A1. DF 06/25/2022 2:27 PM T [facility] Disclaimer The performance characteristics of all immunohistochemical and indirect immunofluorescence stains (if any) cited in this report were determined by the Histopathology Laboratory of [facility]. Some of these tests were developed [...] attending (teaching) pathologist. 06/25/2022 2:27 PM CDT [facility] Embedded Images 06/25/2022 2:27 PM T [facility] Resection without Tumor SMALL BOWEL RESECTION SPECIMEN / Unknown 06/21/2022 4:40 PM CDT 06/22/2022 8:59 AM CDT Comment:Pre-op diagnosis: Coffee ground emesis Carmen Morales MD LAB - PATHOLOGY/CYTO LOGY ORDERABLES [facility] [address] [phone] * EGD (06/21/2022 4:24 PM CDT) Report [...] Procedure Code(s): ? --- Professional --- ? 99398, Esophagogastroduode noscopy, flexible, transoral; with biopsy, ? single or multiple Diagnosis Code(s): ?--- Professional --- ?K22.70, Ferrell's esophagus without dysplasia ?K92.0, Hematemesis CPT copyright 2019 [employer]. All rights reserved. The codes documented in this report are preliminary and upon buffing wheel operator review may be revised to meet current compliance requirements. Carmen Morales, 06/21/2022 5:01:11 PM Note Initiated On: 06/21/2022 4:24 PM Number of Addenda: 0 ? [facility] ? [address] [place] [address] [facility] 06/21/2022 4:24 PM CDT Abeba Will DO GI PROCEDURE ORDERAB LES [facility] * CARDIAC EKG ORDER (06/21/2022 3:29 [...] 10.5 10? 3 /uL 06/21/2022 2:59 AM [facility] RBC 2.77(L) 3.80 - 5.20 10? 6 /uL 06/21/2022 2:59 AM [facility] Hemoglobin 8.3(L) 12.0 - 15.6 g/dL 06/21/2022 2:59 AM [facility] Hematocrit 25.9(L) 35.0 - 45.0 % 06/21/2022 2:59 AM [facility] MCV 93.5 80.7 - 98.3 fL 06/21/2022 2:59 AM [facility] MCH 30.0 26.7 - 34.0 pg 06/21/2022 2:59 AM [facility] MCHC 32.0 30.8 - 35.9 g/dL 06/21/2022 2:59 AM [facility] RDW-SD 46.8 36.0 - 50.0 fL 06/21/2022 2:59 AM [facility] RDW-CV 13.8 11.2 - 14.8 % 06/21/2022 2:59 AM [facility] Platelet Count 415(H) 150 - 400 10? 3 /uL 06/21/2022 2:59 AM [facility] MPV 9.6 9.4 - 12.9 fL 06/21/2022 2:59 AM [facility] nRBC Absolute 0.00 0 10? 3 /uL 06/21/2022 2:59 AM [facility] nRBC Auto 0.0 0 /100 WBC 06/21/2022 2:59 AM [facility] Neutrophils % 68.7 35.0 - 70.0 % 06/21/2022 2:59 AM [facility] Lymphocytes % 17.2(L) 20.0 - 43.0 % 06/21/2022 2:59 AM [facility] Monocytes % 10.7 5.0 - 13.0 % 06/21/2022 2:59 AM [facility] Eosinophils % 2.3 0.0 - 6.0 % 06/21/2022 2:59 AM [facility] Basophil % 0.6 0.0 - 2.0 % 06/21/2022 2:59 AM [facility] Neutrophils Absolute 5.47 1.60 - 7.00 10? 3 /uL 06/21/2022 2:59 AM [facility] Lymphocyte Absolute 1.37 1.10 - 3.90 10? 3 /uL 06/21/2022 2:59 AM [facility] Monocytes Absolute 0.85 0.26 - 1.07 10? 3 /uL 06/21/2022 2:59 AM [facility] Eosinophils Absolute 0.18 0.00 - 0.47 10? 3 /uL 06/21/2022 2:59 AM [facility] Basophils Absolute 0.05 0.00 - 0.08 10? 3 /uL 06/21/2022 2:59 AM [facility] Immature Granulocytes % 0.5 0.0 - 1.0 % 06/21/2022 2:59 AM [facility] Immature Granulocytes Absolute 0.04 06/21/2022 2:59 AM [facility] Blood BLOOD SPECIMEN / Unknown Lab Venipuncture / Unknown 06/21/2022 2:03 AM CDT 06/21/2022 2:39 AM T Deepa Georges MD LAB - HEMATOLOGY ORD ERABLES [facility] [address] [place] [address], [facility] [phone] * (ABNORMAL) COMPREHENSIVE METABOLIC PANEL (06/21/2022 2:03 AM [facility]) Only the most recent of3 resultswithin the time period is included. BUN 14 7 - 26 mg/dL 06/21/2022 3:05 AM [facility] Creatinine 1.11(H) 0.56 - 0.96 mg/dL 06/21/2022 3:05 AM [facility] Sodium 134(L) 136 - 145 mmol/L 06/21/2022 3:05 AM [facility] Potassium 4.2 3.5 - 4.5 mmol/L 06/21/2022 3:05 AM [facility] Chloride 96(L) 98 - 107 mmol/L 06/21/2022 3:05 AM [facility] CO2 25 22 - 29 mmol/L 06/21/2022 3:05 AM [facility] Glucose 54(L) 70 - 115 mg/dL 06/21/2022 3:05 AM [facility] Calcium 9.5 8.4 - 10.2 mg/dL 06/21/2022 3:05 AM [facility] Protein Total 6.0 6.0 - 8.3 g/dL 06/21/2022 3:05 AM [facility] Albumin 3.3(L) 3.4 - 5.0 g/dL 06/21/2022 3:05 AM [facility] Bilirubin Total 0.7 0.2 - 1.2 mg/dL 06/21/2022 3:05 AM [facility] Alkaline Phosphatase 62 40 - 150 U/L 06/21/2022 3:05 AM [facility] ALT 10 5 - 55 U/L 06/21/2022 3:05 AM [facility] AST 15 5 - 34 U/L 06/21/2022 3:05 AM [facility] Anion Gap 17 8 - 18 06/21/2022 3:05 AM [facility] BUN/Creatinine Ratio 13 7 - 23 06/21/2022 3:05 AM [facility] Osmolality Calculated 276 270 - 300 mOsm/kg 06/21/2022 3:05 AM [facility] Albumin/Globulin Ratio 1.2 1.1 - 2.3 06/21/2022 3:05 AM [facility] eGFR by CKD-EPI 53(L) >=90 mL/min/1.7 3 m2 06/21/2022 3:05 AM [facility] Blood BLOOD SPECIMEN / Unknown Lab Venipuncture / Unknown 06/21/2022 2:03 AM CDT 06/21/2022 2:39 AM CDT Deepa Georges MD LAB - CHEMISTRY [place] [facility] Organization Address City/State/ZIP Co de Phone Number [facility] [address] [place] [address], [facility] [phone] * (ABNORMAL) URINALYSIS REFLEX TO MICROSCOPIC NO CULTURE (06/21/2022 12:50 AM T) Only the most recent of2 resultswithin the time period is included. Color UA Yellow Straw, Yellow 06/21/2022 1:04 AM [facility] Clarity UA Clear Clear 06/21/2022 1:04 AM [facility] Specific Ferriday UA 1.048(H) 1.005 - 1.030 06/21/2022 1:04 AM [facility] pH UA 7.0 5.0 - 8.0 pH 06/21/2022 1:04 AM [facility] Protein UA Negative Negative 06/21/2022 1:04 AM [facility] Glucose UA Negative Negative 06/21/2022 1:04 AM [facility] Ketone UA 1+(A) Negative 06/21/2022 1:04 AM [facility] Bilirubin UA Negative Negative 06/21/2022 1:04 AM [facility] Blood UA Negative Negative 06/21/2022 1:04 AM [facility] Nitrite UA Negative Negative 06/21/2022 1:04 AM [facility] Leukocyte Esterase Trace(A) Negative 06/21/2022 1:04 AM [facility] Urobilinogen UA Negative Negative mg/dL 06/21/2022 1:04 AM CDT [facility] RBC UA 0-2 None Seen, 0-2, 3-5 /HPF 06/21/2022 1:04 AM CDT [facility] WBC UA 0-5 None Seen, 0-5 /HPF 06/21/2022 1:04 AM CDT [facility] Squamous Epithelial Cells UA 0-2 None Seen, 0-2, 3-5 /HPF 06/21/2022 1:04 AM CDT [facility] Urine URINE SPECIMEN OBTAINED BY CLEAN CATCH PROCEDURE / Unknown Collection / Unknown 06/21/2022 12:50 AM CDT 06/21/2022 12:57 AM CDT Narrative [facility] - 06/21/2022 1:04 AM CDT Jacki Balbuena PA-C LAB - URINALYSIS OR DERABLES [address] [address], [place] [phone] * (ABNORMAL) HEMOGLOBIN (06/20/2022 10:18 PM CDT) Hemoglobin 8.5(L) 12.0 - 15.6 g/dL 06/20/2022 10:42 PM CDT [facility] Blood BLOOD SPECIMEN / Unknown Lab Venipuncture / Unknown 06/20/2022 10:18 PM CDT 06/20/2022 10:39 PM CDT Deepa Georges MD LAB - HEMATOLOGY ORD ERABLES [address] [address], [place] [phone] * B-TYPE NATRIURETIC PEPTIDE (06/20/2022 10:18 PM CDT) BNP 99 <100 pg/mL 06/20/2022 11:17 PM CDT [facility] Comment: A decision threshold of 100 [...] - CHEMISTRY [place] Performing Organization Address [facility] de Phone Number [facility] [address] [place] [address], [facility] [phone] * CT ANGIO ABDOMEN PELVIS (06/20/2022 5:05 [...] > Dictated by Sherlyn Hopkins DO (residential manager). I, Chaim Martins have personally reviewed and interpreted this examination/study. > Interpreting Provider: Chaim Martins on 06/20/2022 10:47 PM Narrative 06/20/2022 10:47 PM CDT PROCEDURE: ??CT ANGIO ABDOMEN PELVIS, DATE/TIME OF EXAM: ??06/20/2022 5:05 PM, LOCATION ??[facility] INDICATION: R10.12: Abdominal pain, left [...] DATE/TIME OF EXAM: 06/20/2022 5:05PM, LOCATION [facility] INDICATION: R10.12: Abdominal pain, left [...] > Dictated by Sherlyn Hopkins DO (residential manager). I, Chaim Martins have personally reviewed and interpreted this examination/study. > Interpreting Provider: Chaim Martins on 06/20/2022 10:47 PM Adolph Mckinney MD CT ORDERABLES * XR CHEST 2VW (06/20/2022 3:02 PM CDT) Anatomical Region Laterality Modality Chest Radiographic Vivian ging 06/20/2022 3:13 PM CDT Narrative 06/20/2022 3:49 PM CDT PROCEDURE: ??XR CHEST 2VW, DATE/TIME OF EXAM: ??06/20/2022 3:03 PM, LOCATION [facility] INDICATION: R06.02: Shortness of breath [...] Report dictated by Yasir Pierre MD (residential manager). Haroldo Narvaez MD have personally reviewed and interpreted this examination/study. > Interpreting Provider: Haroldo Ball MD on 06/20/2022 3:49 PM Procedure Note Haroldo Ball MD - 06/20/2022 PROCEDURE: XR CHEST 2VW, DATE/TIME OF EXAM: 06/20/2022 3:03 PM, LOCATION [facility] INDICATION: R06.02: Shortness of breath [...] Report dictated by Yasir Pierre MD (residential manager). Haroldo Narvaez MD have personally reviewed and interpreted this examination/study. > Interpreting Provider: Haroldo Ball MD on 06/20/2022 3:49 PM Adolph Mckinney MD DIAGNOSTIC IMAGING ORDERABLES * PT-INR [facility] (06/20/2022 2:05 PM CDT) PT 13.4 12.1 - 14.8 Seconds 06/20/2022 2:48 PM CDT [facility] INR 1.0 See Comment 06/20/2022 2:48 PM CDT [facility] Comment:The suggested therap eutic range for standard coumadin (warfarin) therapy is an INR of 2.0-3.0. For high-risk patients (Mechanical Mitral Valve Prosthesis, etc.), the suggested prophylactic therapeutic range is an INR of 2.5-3.5. Blood BLOOD SPECIMEN / Unknown Venipuncture / Unknown 06/20/2022 2:05 PM CDT 06/20/2022 2:07 PM CDT Adolph Mckinney MD LAB - COAGULATION ORDERABLES Performing Organization Address [facility]/ZIP Co de Phone Number [address] [address], [facility] [phone] * TYPE + SCREEN PANEL (06/20/2022 2:05 PM CDT) Only the most recent of3 resultswithin the time period is included. Antibody Screen NEG 2:53 PM CDT [facility] ABO Rh A POS 06/20/2022 2:53 PM CDT [facility] Blood Bank BLOOD SPECIMEN / Unknown Venipuncture / Unknown 06/20/2022 2:05 PM CDT 06/20/2022 2:08 PM CDT Adolph Mckinney MD LAB - BLOOD BANK O RDERABLES Performing Organization Address [facility] Co de Phone Number [facility] [address] [place] [phone], [facility] [phone] * LIPASE BLOOD (06/20/2022 2:05 PM CDT) Lipase 18 8 - 78 U/L 06/20/2022 2:50 PM CDT [facility] Blood BLOOD SPECIMEN / Unknown Venipuncture / Unknown 06/20/2022 2:05 PM CDT 06/20/2022 2:23 PM CDT Narrative [facility] - 06/20/2022 2:50 PM CDT Lipase results from the [employer] analyzer may not be comparable with other methodologies. Adolph Mckinney MD LAB - CHEMISTRY OR DERABLES [address] [address], [place] [phone] * LACTIC ACID BLOOD (06/20/2022 2:05 PM CDT) [facility] Lactic Acid-Stat 1.1 <=2.0 mmol/L 06/20/2022 2:48 PM CDT [facility] Blood BLOOD SPECIMEN / Unknown Venipuncture / Unknown 06/20/2022 2:05 PM CDT 06/20/2022 2:23 PM CDT Adolph Mckinney MD LAB - CHEMISTRY OR DERABLES Performing Organization Address [facility]/ZIP Co de Phone Number [address] [address], [place] [phone] * TROPONIN-I HIGH SENSITIVE REFLEX 1HOUR (06/20/2022 1:05 PM CDT) [facility] Troponin I High Sensitive 8 <=14 ng/L 06/20/2022 1:59 PM CDT [facility] Delta Troponin I HS 06/20/2022 1:59 PM CDT [facility] Comment:Delta value intentio anil not calculated. Baseline to 1 hour specimen collection interval exceeded. Blood BLOOD SPECIMEN / Unknown Venipuncture / Unknown 06/20/2022 1:05 PM CDT 06/20/2022 1:23 PM CDT Jacki Balbuena PA-C LAB - CHEMISTRY ORD ERABLES [address] [address], [place] [phone] * TROPONIN-I HIGH SENSITIVE BASELINE + 1HR (06/20/2022 9:49 AM CDT) [facility] Troponin I High Sensitive 7 <=14 ng/L 06/20/2022 10:39 AM CDT [facility] Blood BLOOD SPECIMEN / Unknown Venipuncture / Unknown 06/20/2022 9:49 AM CDT 06/20/2022 9:55 AM CDT Jacki Balbuena PA-C LAB - CHEMISTRY ORD ERABLES Performing Organization Address City/[facility]/ZIP Co de Phone Number [facility] [address] [place] [address], [facility] [phone] * EKG 12-LEAD (06/20/2022 9:40 AM CDT) Only the most recent of2 resultswithin the time period is included. Ventricular Rate 88 BPM SL MUSE Atrial Rate 88 BPM [facility] MUSE P-R Interval 176 ms [facility] M[facility] QRS Duration ms 70 ms [facility] MUSE Q-T Interval ms 348 ms [facility] MUSE QTC Calculation (Bezet) 421 ms [facility] MUSE Calculated P [place] 75 degrees SL MUSE Calculated R [place] 55 degrees SLH MUSE Calculated T [place] 74 degrees SLH MUSE Interpretation EKG NORMAL SINUS RHYTHM NORMAL ECG WHEN COMPARED WITH ECG OF 15-FEB-2022 00:55, VENT. RATE HAS INCREASED by 15 bpm Confirmed by BRIEN KEARNS MD ([id number]) on 06/20/2022 1:46:36 PM [facility] MUSE 06/20/2022 9:40 AM CDT 06/20/2022 1:46 PM CDT Jacki Balbuena PA-C ECG ORDERABLES Performing Organization Address [facility] Co de Phone Number [facility] MUSE * (ABNORMAL) PHOSPHORUS BLOOD (06/08/2022 2:13 AM MACHINE WIPER) Only the most recent of3 resultswithin the time period is included. Phosphorus 2.5(L) 2.9 - 5.1 mg/dL 06/08/2022 3:12 AM MACHINE WIPER [facility] Blood BLOOD SPECIMEN / Unknown Lab Venipuncture / Unknown 06/08/2022 2:13 AM MACHINE WIPER 06/08/2022 2:44 AM MACHINE WIPER Ama Gonzalez MD LAB - CHEMISTRY ORDERABLES [facility] [address] [place] [address], [place] [phone] * TRANSFUSE RED BLOOD CELL LEUKOREDUCED UNIT(S) (06/06/2022 12:20 PM MACHINE WIPER) Ama Gonzalez MD NURSING - BLOOD PROD TRANSFUSION * PREPARE (CROSSMATCH) RBC UNIT(S), 1 Units (06/06/2022 9:36 AM MACHINE WIPER) Unit Description AS1 LR PRBC [facility] Unit ABO A [facility] Unit Rh POS [facility] Product Number R02 [facility] B[facility] Unit Donor # [id number] [facility] Unit Status transfused [facility] Product Code [id number] [facility] Blood Type Barcode 6200 [facility] Expiration Date [id number] S BLOOD BANK LAB Blood Bank BLOOD SPECIMEN / Unknown 06/04/2022 6:44 AM MACHINE WIPER Ama Gonzalez MD LAB - BLOOD BANK ORDERABLES Performing Organization Address City/[facility]/ZIP Co de Phone Number [facility] [address] [place] [address], [facility] [phone] * PTH INTACT W/O CALCIUM (06/06/2022 3:07 AM MACHINE WIPER) Pathologist [facility] PTH Intact 72.1 8.0 - 77.0 pg/mL 06/06/2022 4:04 AM MACHINE WIPER [facility] Blood BLOOD SPECIMEN / Unknown Lab Venipuncture / Unknown 06/06/2022 3:07 AM MACHINE WIPER 06/06/2022 3:32 AM MACHINE WIPER Deon Taylor MD LAB - CHEMISTRY CELESTEE SORAIDA [facility] [address] [place] [address], [place] [phone] * HEMOGLOBIN A1C (06/06/2022 3:07 AM MACHINE WIPER) Only the most recent of2 resultswithin the time period is included. Hemoglobin A1c 5.3 <=5.6 % 06/06/2022 3:38 PM [facility] Estimated Average Glucose 105 mg/dL 06/06/2022 3:38 PM [facility] Comment: HbA1c Interpretation: Normal : < 5.7% Pre-diabetes: 5.7-6.4% Diabetes: Equal to or greater than 6.5% Test results diagnostic of diabetes should be repeated for confirmation. Treatment target values recommended by ADA and other clinical organizations should be used to evaluate metabolic control in patients. Reference: [place] Diabetes Association, Standards of Care in Diabetes -2020 In patients 70 years and older consider HbA1c target range of 7.0-7.5% (Reference: Oswaldo Liz et al. JAMDA. 2012) The Sebia assay for the measurement of HbA1c is a National Glycohemoglobin Standardization Program (NGSP) certified method. Blood BLOOD SPECIMEN / Unknown Lab Venipuncture / Unknown 06/06/2022 3:07 AM MACHINE WIPER 06/06/2022 3:28 AM [facility] Ama Gonzalez MD LAB - CHEMISTRY ORDERABLES Performing Organization Address [facility] de Phone Number [facility] [address] [place] [address], [facility] [phone] * VITAMIN D 25-HYDROXY (06/06/2022 3:07 AM [facility]) Pathologist [facility] Vitamin D, 25 Hydroxy 53.0 30.0 - 80.0 ng/mL 06/06/2022 4:35 AM [facility] Comment: The recommendations for 25-Hydroxy Vitamin [...] Lab Venipuncture / Unknown 06/06/2022 3:07 AM MACHINE WIPER 06/06/2022 3:29 AM MACHINE WIPER Deon Taylor MD LAB - CHEMISTRY CHELO QUIGLEY Performing Organization Address [facility]/ZIP Co de Phone Number [facility] [address] [place] [address], [facility] [phone] * FOLATE (06/06/2022 3:07 AM MACHINE WIPER) Folate 9.4 7.0 - 31.4 ng/mL 06/06/2022 4:35 AM MACHINE WIPER [facility] Blood BLOOD SPECIMEN / Unknown Lab Venipuncture / Unknown 06/06/2022 3:07 AM MACHINE WIPER 06/06/2022 3:29 AM MACHINE WIPER Ama Gonzalez MD LAB - CHEMISTRY ORDERABLES Performing Organization Address [facility]/ZIP Co de Phone Number [facility] [address] [place] [address], [place] [phone] * VITAMIN B12 (06/06/2022 3:07 AM MACHINE WIPER) Vitamin B12 382 213 - 816 pg/mL 06/06/2022 4:35 AM MACHINE WIPER [facility] Blood BLOOD SPECIMEN / Unknown Lab Venipuncture / Unknown 06/06/2022 3:07 AM MACHINE WIPER 06/06/2022 3:29 AM MACHINE WIPER Ama Gonzalez MD LAB - CHEMISTRY ORDERABLES [address] [address], [place] [phone] * (ABNORMAL) IRON + TRANSFERRIN PANEL (06/06/2022 3:07 AM MACHINE WIPER) Iron 20(L) 40 - 150 ug/dL 06/06/2022 3:53 AM [facility] Transferrin 162(L) 174 - 382 mg/dL 06/06/2022 3:53 AM [facility] Transferrin Saturation % 10(L) 16 - 50 % 06/06/2022 3:53 AM [facility] TIBC Calculated 203(L) 240 - 450 ug/dL 06/06/2022 3:53 AM [facility] Blood BLOOD SPECIMEN / Unknown Lab Venipuncture / Unknown 06/06/2022 3:07 AM MACHINE WIPER 06/06/2022 3:25 AM MACHINE WIPER Ama Gonzalez MD LAB - CHEMISTRY ORDERABLES [address] [address], [place] [phone] * FERRITIN (06/06/2022 3:07 AM MACHINE WIPER) Ferritin 94 13 - 204 ng/mL 06/06/2022 4:10 AM MACHINE WIPER [facility] Blood BLOOD SPECIMEN / Unknown Lab Venipuncture / Unknown 06/06/2022 3:07 AM MACHINE WIPER 06/06/2022 3:25 AM MACHINE WIPER Ama Gonzalez MD LAB - CHEMISTRY ORDERABLES [address] [address], [place] [phone] * FL JOSÉ LUIS SURGERY (06/04/2022 11:30 AM MACHINE WIPER) Narrative [facility] - 06/04/2022 12:52 PM MACHINE WIPER Fluoroscopy was used for this exam in the OR. Please see the Operative report. Deon Taylor MD FLUOROSCOPY ORDERABL ES [facility] * ETT LINE PERFORMABLE (06/04/2022 9:09 AM MACHINE WIPER) Narrative Marcos Rojas Anes Asst - 06/04/2022 9:09 AM MACHINE WIPER Marcos Rojas Anes Asst ? 06/04/2022 ??9:11 AM Endotracheal Tube Placement: ? Patient Location: OR. Intubation Event Date/Time: ??06/04/2022 7:44 AM Procedure: intubation ([id number]). Procedure Section: ?? Sedation: under general anesthesia. [...] * ARTERIAL LINE PERFORMABLE (06/04/2022 9:08 AM MACHINE WIPER) Narrative Marcos Rojas Anes Asst - 06/04/2022 9:08 AM MACHINE WIPER Marcos Rojas Anes Asst ? 06/04/2022 ??9:08 AM Arterial Line Placement Procedure Note Patient Location: OR. Procedure: Arterial Line ([id number]). Procedure Section ?? Indications: continuous blood pressure [...] * SODIUM URINE RANDOM (02/17/2022 2:08 PM MACHINE WIPER) Sodium Urine 55 Not Established mmol/L 02/17/2022 2:30 PM MACHINE WIPER [facility] Urine URINE SPECIMEN OBTAINED BY CLEAN CATCH PROCEDURE / Unknown Collection / Unknown 02/17/2022 2:08 PM MACHINE WIPER 02/17/2022 2:13 PM MACHINE WIPER Radha Flores PA-C LAB - URINE CHEM ISTRY ORDERABLES Performing Organization Address [facility]/ZIP Co de Phone Number [address] [address], [place] [phone] * OSMOLALITY URINE (02/17/2022 2:08 PM MACHINE WIPER) Osmolality Urine 234 50 - 1,200 mOsm/kg 02/17/2022 3:23 PM MACHINE WIPER [facility] Urine URINE SPECIMEN OBTAINED BY CLEAN CATCH PROCEDURE / Unknown Collection / Unknown 02/17/2022 2:08 PM MACHINE WIPER 02/17/2022 2:13 PM MACHINE WIPER Narrative [facility] - 02/17/2022 3:23 PM MACHINE WIPER QRY Radha Flores PA-C LAB - URINE CHEM ISTRY ORDERABLES Performing Organization Address City/[facility]/ZIP Co de Phone Number [address] [address], [place] [phone] * MRI CERVICAL SPINE WO CONTRAST (02/16/2022 7:19 PM MACHINE WIPER) Anatomical Region Laterality Modality Pelvis Magnetic Resonan ce 02/18/2022 1:46 PM MACHINE WIPER Impressions 02/18/2022 2:03 PM MACHINE WIPER IMPRESSION: 1. Degenerative changes of the spine [...] 02/18/2022 2:03 PM Narrative 02/18/2022 2:03 PM MACHINE WIPER PROCEDURE: ??MRI CERVICAL SPINE WO CONTRAST, DATE/TIME OF EXAM: ??02/16/2022 7:20 PM, LOCATION ??[facility] INDICATION: M50.30: Degeneration of cervical [...] CONTRAST, DATE/TIME OF EXAM:02/16/2022 7:20 PM, LOCATION [facility] INDICATION: M50.30: Degeneration of cervical [...] TSH REFLEX FREE T4 (02/16/2022 7:57 AM MACHINE WIPER) Only the most recent of2 resultswithin the time period is included. TSH 1.522 0.350 - 4.940 uIU/mL 02/16/2022 9:01 AM MACHINE WIPER [facility] Blood BLOOD SPECIMEN / Unknown Lab Venipuncture / Unknown 02/16/2022 7:57 AM MACHINE WIPER 02/16/2022 8:15 AM MACHINE WIPER Dagoberto Ordoñez MD LAB - CHEMISTRY ORDERABLES [facility] [address] [address], [facility] [phone] * CT CERVICAL SPINE WO CONTRAST (02/15/2022 10:41 PM MACHINE WIPER) Anatomical Region Laterality Modality Spine Computed Tomogra phy 02/16/2022 2:09 AM MACHINE WIPER Impressions 02/16/2022 2:29 AM MACHINE WIPER IMPRESSION: 1.No acute fracture or traumatic malalignment [...] 02/16/2022 2:29 AM Narrative 02/16/2022 2:29 AM MACHINE WIPER PROCEDURE: ??CT CERVICAL SPINE WO CONTRAST, DATE/TIME OF EXAM: ??02/15/2022 10:41 PM, LOCATION ??[facility] INDICATION: S02.92XA: Multiple closed fractures of facial bone, initial encounter ([facility]) ADDITIONAL CLINICAL INFORMATION: Ordering Provider Reason For [...] CONTRAST, DATE/TIME OF EXAM:02/15/2022 10:41 PM, LOCATION [facility] INDICATION: S02.92XA: Multiple closed fractures of facial bone, initial encounter ([facility]) ADDITIONAL CLINICAL INFORMATION: Ordering Provider Reason For [...] left C3-C5 facets, right C3-C4 facets, and C3-X1exwmocp processes. DISCS: Osseous fusion of the C3-C5 [...] in moderate spinal canal stenosis at the C5-X2oomwu and mild spinal canal stenosis at the C3-C4, C6-C7, and C7-T1 levels. 3.Severe bilateral neuroforaminal narrowing at the C5-C6 level. > Interpreting Provider: Barbara Wallace DR on 02/16/2022 2:29 AM Radha Flores PA-C CT ORDERABLES * SARS-COV-2 (COVID-19)+INFLU A+B PCR RAPID (02/15/2022 3:07 PM MACHINE WIPER) COVID-19 PCR Not detected Not detected 02/16/20 3:59 PM MACHINE WIPER [facility] Influenza A Rapid WENDI Not Detected Not Detected 02/15/2022 3:59 PM MACHINE WIPER [facility] Influenza B WENDI Rapid Not Detected Not Detected 02/15/2022 3:59 PM MACHINE WIPER [facility] Microbiology SPECIMEN FROM NASOPHARYNGEAL STRUCTURE / Unknown Collection / Unknown 02/15/2022 3:07 PM MACHINE WIPER 02/15/2022 3:10 PM MACHINE WIPER Narrative [facility] - 02/15/2022 3:59 PM MACHINE WIPER Influenza assay performed by [employer]. [...] acid amplification assay performance was validated by [facility]. This test has been authorized by the [...] Burk MD LAB - MICROBIOLOGY O RDERABLES [facility] [address] [place] [address], [facility] [phone] * VAS CAROTID DUPLEX BILATERAL (02/15/2022 1:56 PM MACHINE WIPER) Anatomical Region Laterality Modality Neck Intravascular Ul trasound 02/15/2022 12:0 2 PM MACHINE WIPER Narrative Procedure Note Adolph Pineda MD - 02/16/2022 Dagoberto Ordoñez MD VASCULAR LAB ORD ERABLES * ECHO COMPLETE (02/15/2022 11:27 AM MACHINE WIPER) Anatomical Region Laterality Modality Chest Echo 02/15/2022 10:2 8 AM MACHINE WIPER Narrative Procedure Note Corey Flowers MD - 02/15/2022 Dagoberto Ordoñez MD ECHOCARDIOGRAPHY RADIANT * TROPONIN I (02/14/2022 11:55 PM MACHINE WIPER) Troponin I 0.027 <0.032 ng/mL 02/15/2022 12:31 AM MACHINE WIPER [facility] Blood BLOOD SPECIMEN / Unknown Venipuncture / Unknown 02/14/2022 11:55 PM MACHINE WIPER 02/14/2022 11:58 PM MACHINE WIPER Justo Sparrow MD LAB - CHEMISTRY CHELO QUIGLEY [facility] [address] [place] [address], [facility] [phone] * XR CHEST 1VW PORTABLE (02/14/2022 11:25 PM MACHINE WIPER) Anatomical Region Laterality Modality Chest Radiographic Vivian ging 02/14/2022 11:2 4 PM MACHINE WIPER Narrative 02/15/2022 9:10 AM MACHINE WIPER PROCEDURE: ??XR CHEST 1VW PORTABLE, DATE/TIME OF EXAM: ??02/14/2022 11:25 PM, LOCATION ??[facility] INDICATION: R55: Syncope and collapse [...] > Dictated by Sushil Herrera MD (residential manager). Tony Narvaez MD have personally reviewed and interpreted this examination/study. > Interpreting Provider: Tony Hansen MD on 02/15/2022 9:10 AM Procedure Note Tony Hansen MD - 02/15/2022 PROCEDURE: XR CHEST 1VW PORTABLE, DATE/TIME OF EXAM: 02/14/2022 11:25PM, LOCATION [facility] INDICATION: R55: Syncope and collapse [...] > Dictated by Sushil Herrera MD (residential manager). Tony Narvaez MD have personally reviewed and interpreted this examination/study. > Interpreting Provider: Tony Hansen MD on 29:10 AM Justo Sparrow MD DIAGNOSTIC IMAGING O RDERABLES * MRI SPINE CERVICAL WITH AND WITHOUT CONTRAST (11/11/2009) Anatomical Region Laterality Modality Spine Other Dionisio Ryan MD MR ORDERABLES Care Teams Seo Team Lead Relationship Specialty Start Date End Date Karrie Phillips MD [address] [place] [address] PCP - General 03/13/22
--- OUTSIDE RECORDS SUMMARY | 2024-04-11 21:56 | XMS_ITS | Referral Summary ---
Author Organization [facility] [employer] Address [address] [place] [address] Care Team Providers Care Skin Pass Operator Name Role Phone Karrie Phillips MD Primary Care Provider [phone] Source Comments [facility],non-owned Affiliates and Associated Physician Practices is amultiple site organization consisting of ambulatory clinics and hospital sitesin [place], [place], [place] and [place]. This disclosure is being madepursuant to the Care Everywhere program and may not contain all information available regarding this patient. Last updated 17.[facility] [employer] Allergies Active Allergy Reactions Criticality Noted Date [...] 24 hours. 02/19/2022 Active saline nasal spray ([place]; Baby Troy) 0.65 % nasal spray [place] 1 (one) spray into each nostril as [...] and heating? Not hard at all 06/04/2022 [facility] of Occupat ional Health - Occupational Stress [...] lb 3.2 oz) 06/04/2023 2:02 P M EXTENSION ASSOCIATE Height 154.9 cm (5' 1 ) 12/04/2022 [...] st Contact Info) Description 06/02/2024 1:45 PM EXTENSION ASSOCIATE Office Visit [facility] [address] [place] [address], [facility] [place] [address] Deon Taylor MD [address] [place] [address] Medical Devices Implanted Type Area Electrical Line Mechanic Device Identifier Shelf Expiration Date Model / Serial / Lot Jean Bone Void 10ml Dbm Grftn Algrf Ptty Implanted:Qty: 1 on 06/04/2022 by Deon Taylor MD at [facility] N/A: Spine [employer] 05/04/2025 [id number] / / [id number] 90mm Rods Implanted:Qty: 2 on 06/04/2022 by Deon Taylor MD at [facility] N/A: Spine [employer] Spine [id number] / / Jean Bone Void 10ml Dbm Grftn Algrf Ptty Implanted:Qty: 1 on 06/04/2022 by Deon Taylor MD at [facility] N/A: Spine [employer] 05/04/2025 [id number] / / [id number] Graft Bone Canc 4-9.5mm 15cc Frzdr Chp Implanted:Qty: 1 on 06/04/2022 by Deon Taylor MD at [facility] N/A: Spine [employer] 02/26/2027 [id number] / / [id number] Graft Bone Canc 4-9.5mm 30cc Algrf Frzdr Implanted:Qty: 1 on 06/04/2022 by Deon Taylor MD at [facility] N/A: Spine [employer] 12/27/2025 [id number] / / [id number] 3.5 X 14mm Screw Implanted:Qty: 4 on 06/04/2022 by Deon Taylor MD at [facility] N/A: Spine [employer] Spine [id number] / / 4.0x 20mm Screw Implanted:Qty: 2 on 06/04/2022 by Deon Taylor MD at [facility] N/A: Spine [employer] Spine [id number] / / 5.0 X 24mm Screw Implanted:Qty: 2 on 06/04/2022 by Deon Taylor MD at [facility] N/A: Spine [employer] Spine [id number] / / 4.5 X 26mm Screw Implanted:Qty: 2 on 06/04/2022 by Deon Taylor MD at [facility] N/A: Spine [employer] Spine [id number] / / Screw Caps Implanted:Qty: 10 on 06/04/2022 by Deon Taylor MD at [facility] N/A: Spine [employer] Spine [id number] / / Procedures Procedure Name Priority Date/Time Associated Diagnosis Comments BASIC METABOLIC PANEL (CALCIUM TOTAL) AM Draw 06/23/2022 3:06 AM CDT Coffee ground emesis HEMOGLOBIN A1C Routine 06/06/2022 3:07 AM EXTENSION ASSOCIATE from Last 3 Months or Most Recently Relevant to Health Maintenance Results * (ABNORMAL) BASIC METABOLIC PANEL (CALCIUM TOTAL) (06/23/2022 3:06 AM CDT) BUN 10 7 - 26 mg/dL 06/23/2022 4:38 AM [facility] Creatinine 1.09(H) 0.56 - 0.96 mg/dL 06/23/2022 4:38 AM [facility] Sodium 131(L) 136 - 145 mmol/L 06/23/2022 4:38 AM [facility] Potassium 4.2 3.5 - 4.5 mmol/L 06/23/2022 4:38 AM [facility] Chloride 100 98 - 107 mmol/L 06/23/2022 4:38 AM [facility] CO2 22 22 - 29 mmol/L 06/23/2022 4:38 AM [facility] Glucose 111 70 - 115 mg/dL 06/23/2022 4:38 AM [facility] Calcium 8.2(L) 8.4 - 10.2 mg/dL 06/23/2022 4:38 AM [facility] Anion Gap 13 8 - 18 06/23/2022 4:38 AM [facility] BUN/Creatinine Ratio 9 7 - 23 06/23/2022 4:38 AM [facility] Osmolality Calculated 272 270 - 300 mOsm/kg 06/23/2022 4:38 AM [facility] eGFR by CKD-EPI 54(L) >=90 mL/min/1.7 3 m2 06/23/2022 4:38 AM CDT [facility] Blood BLOOD SPECIMEN / Unknown Lab Venipuncture / Unknown 06/23/2022 3:06 AM CDT 06/23/2022 4:03 AM CDT Anabell Hernandez PA-C LAB - CHEMISTRY ORD ERABLES Performing Organization Address [facility]/ZIP Co de Phone Number [facility] [address] [place] [address], [facility] [phone] * HEMOGLOBIN A1C (06/06/2022 3:07 AM EXTENSION ASSOCIATE) Hemoglobin A1c 5.3 <=5.6 % 06/06/2022 3:38 [...] to evaluate metabolic control in patients. Reference: [place] [employer], Standards of Care in Diabetes -2020 In patients 70 years and older consider HbA1c target range of 7.0-7.5% (Reference: Oswaldo Liz et al. JAMDA. 2012) The Sebia assay for the measurement of HbA1c is a National Glycohemoglobin Standardization Program (NGSP) certified method. Blood BLOOD SPECIMEN / Unknown Lab Venipuncture / Unknown 06/06/2022 3:07 AM EXTENSION ASSOCIATE 06/06/2022 3:28 AM EXTENSION ASSOCIATE Ama Gonzalez MD LAB - CHEMISTRY ORDERABLES Performing Organization Address City/[facility]/ZIP Co de Phone Number [facility] [address] [place] [phone], [place] [phone] from Last 3 Months or Most Recently Relevant to Health Maintenance Advance Directives * Full Code (Latest Code Status on File) Date Activated Date Inactivated Comments 06/20/2022 6:09 PM 06/23/2022 5:59 PM * Full Code Date Activated Date Inactivated Comments 06/04/2022 1:16 PM 06/08/2022 11:04 PM * Full Code Date Activated Date Inactivated Comments 02/15/2022 5:44 AM 02/19/2022 3:38 PM Care Teams Skin Pass Operator Relationship Specialty Start Date End Date Karrie Phillips MD [address] [place] [address] PCP - General 03/13/22
--- OUTSIDE RECORDS SUMMARY | 2024-04-11 21:56 | XMS_ITS | Encounter Summary ---
Author Organization [facility] Address [address] [facility] [facility] [place] [address] Care Team Providers Care Trail Construction Worker Name Role Phone Karrie Phillips MD Primary Care Provider [phone] Encounter Details Date Type Department Care Team (Latest Contact Info) Description 06/04/2023 1:51 PM COMMAND AND CONTROL - 06/04/2023 11:59 PM COMMAND AND CONTROL Hospital Encounter [facility] DIAGNOSTIC RAD CSM 1L [address] [facility] [address] Deon Taylor MD [address] [place] [address] Discharge Disposition: Home or Self Care Social [...] and heating? Not hard at all 06/04/2022 [facility] [place] of Occupat ional Health - Occupational Stress [...] mouth every evening 06/08/2022 saline nasal spray ([place]; Baby [place]) 0.65 % nasal spray [place] 1 (one) spray into each nostril as needed for Dry Nose 15 mL 02/19/2022 vitamin D3 (Cholecalciferol) 10 MCG (400 UNIT) tablet Take 2 (two) tablets by mouth once daily 06/09/2022 documented as of this encounter Plan of Treatment Upcoming Encounters Date Type Department Care Team (Late st Contact Info) Description 06/02/2024 1:45 PM COMMAND AND CONTROL Office Visit [facility] - Orthopedics [address] [facility], [place] [phone] Deon Taylor MD [facility] [place] [address] documented as of this encounter Procedures Procedure Name Priority Date/Time Associated Diagnosis Comments XR CERVICAL SPINE 2 OR 3VW Routine 06/04/2023 1:57 PM COMMAND AND CONTROL S/P cervical spinal fusion documented in this encounter Results * XR CERVICAL SPINE 2 OR 3VW (06/04/2023 1:57 PM COMMAND AND CONTROL) Anatomical Region Laterality Modality Spine Radiographic Vivian ging 06/04/2023 1:57 PM COMMAND AND CONTROL Impressions 06/04/2023 2:28 PM COMMAND AND CONTROL IMPRESSION: Redemonstration of posterior instrumented spinal fusion hardware of C4-T2 with unchanged alignment. Report dictated by Joey Herman MD, (residential supervisor). I, Petar Spears MD have personally reviewed and interpreted this examination/study. > Interpreting Provider: Petar Spears MD on 06/04/2023 2:28 PM Narrative 06/04/2023 2:28 PM COMMAND AND CONTROL PROCEDURE: ??XR CERVICAL SPINE 2 OR 3VW, DATE/TIME OF EXAM: ??06/04/2023 1:57 PM, LOCATION ??[facility] INDICATION: Z98.1: S/P cervical spinal fusion ADDITIONAL [...] 3VW, DATE/TIME OF EXAM: 41:57 PM, LOCATION [facility] INDICATION: Z98.1: S/P cervical spinal fusion ADDITIONAL [...] Report dictated by Joey Herman MD, (residential supervisor). I, Petar Spears MD have personally reviewed and interpreted this examination/study. > Interpreting Provider: Petar Spears MD on 06/04/2023 2:28 PM Deon Taylor MD DIAGNOSTIC IMAGING O RDERABLES documented in this encounter Visit Diagnoses Diagnosis S/P cervical spinal fusion Arthrodesis status documented in this encounter Care Teams Trail Construction Worker Relationship Specialty Start Date End Date Karrie Phillips MD [facility] [place] [address] PCP - General 03/13/22 documented as of this encounter
--- OUTSIDE RECORDS SUMMARY | 2024-04-11 21:56 | XMS_ITS | Encounter Summary ---
Author Organization [facility] Address [address] [facility] [place] [address] Care Team Providers Care Public Health Doctor Name Role Phone Karrie Phillips MD Primary Care Provider [phone] Encounter Details Date Type Department Care Team [...] and heating? Not hard at all 06/04/2022 [facility] [place] of Occupat ional Health - Occupational Stress [...] st Contact Info) Description 06/02/2024 1:45 PM STEWARDING SUPERVISOR Office Visit [facility] [address] [place] [address], [facility] [place] [address] Deon Taylor MD [address] [place] [address] documented as of this encounter Visit Diagnoses Not on filedocumented in this encounter Care Teams Public Health Doctor Relationship Specialty Start Date End Date Karrie Phillips MD [address] [place], [place] [address] [address] PCP - General 03/13/22 documented as of this encounter
--- OUTSIDE RECORDS SUMMARY | 2024-04-11 21:56 | XMS_ITS | CONTINUITY OF CARE DOCUMENT ---
Author Name [email or web address] Address Unknown Organization [facility] Address [address] [facility] [address] [place] [address] Phone [phone] Care Team Providers Care Fatback Trimmer Name Role Phone Aaron Conte MD Unavailable [phone] FLEX SANTOS MD Unavailable FLEX SANTOS MD Unavailable INSURANCE PROVIDERS Payer name Policy type / Coverage type [place] red republican ID UHC MEDICARE COMPLETE HMO Other [id number]
--- OUTSIDE RECORDS SUMMARY | 2024-04-11 21:56 | XMS_ITS | Encounter Summary ---
Author Organization [facility] Address [address] [place] [address] Care Team Providers Care Rehab Director Name Role Phone Karrei Phillips MD Primary Care Provider [phone] Encounter Details Date Type Department Care Team (Late st Contact Info) Description 06/03/2023 Orders Only [facility] [address] [place] [address], [place] [address] Deon Taylor MD [address] [place] [phone] S/P cervical spinal fusion Social History Tobacco [...] hard at all 06/04/2022 [facility] [place] of Occupat ional Health - Occupational [...] place to sleep or slept in a correction (including now)? No 06/04/2022 Sex and Gender [...] st Contact Info) Description 06/02/2024 1:45 PM PEDIATRIC DIETICIAN Office Visit [facility] - Orthopedics [address] [place] [address] Deon Taylor MD [address] [place] [address] documented as of this encounter Results * XR CERVICAL SPINE 2 OR 3VW (06/04/2023 1:57 PM PEDIATRIC DIETICIAN) Anatomical Region Laterality Modality Spine Radiographic Vivian ging 06/04/2023 1:57 PM PEDIATRIC DIETICIAN Impressions 06/04/2023 2:28 PM PEDIATRIC DIETICIAN IMPRESSION: Redemonstration of posterior instrumented spinal fusion hardware of C4-T2 with unchanged alignment. Report dictated by Joey Herman MD, (sr vice president). I, Petar Spears MD have personally reviewed and interpreted this examination/study. > Interpreting Provider: Petar Spears MD on 06/04/2023 2:28 PM Narrative 06/04/2023 2:28 PM PEDIATRIC DIETICIAN PROCEDURE: ??XR CERVICAL SPINE 2 OR 3VW, DATE/TIME OF EXAM: ??06/04/2023 1:57 PM, LOCATION ??[facility] INDICATION: Z98.1: S/P cervical spinal fusion ADDITIONAL [...] DATE/TIME OF EXAM: 41:57 PM, LOCATION [facility] INDICATION: Z98.1: S/P cervical spinal fusion ADDITIONAL [...] alignment. Report dictated by Joey Herman MD, (sr vice president). I, Petar Spears MD have personally reviewed and interpreted this examination/study. > Interpreting Provider: Petar Spears MD on 06/04/2023 2:28 PM Deon Taylor MD DIAGNOSTIC IMAGING O RDERABLES documented in this encounter Visit Diagnoses Diagnosis S/P cervical spinal fusion- Primary Arthrodesis status S/P cervical spinal fusion Arthrodesis status documented in this encounter Care Teams Rehab Director Relationship Specialty Start Date End Date Karrie Phillips MD [address] [place] [address] PCP - General 03/13/22 documented as of this encounter
--- OUTSIDE RECORDS SUMMARY | 2024-04-11 21:56 | XMS_ITS | Encounter Summary ---
Author Organization [facility] Address [address] [place] [address] Care Team Providers Care Property Management Intern Name Role Phone Karrie Phillips MD Primary Care Provider [phone] Reason for Visit * Consult, Test & Treat (Routine) - Closed Specialty Diagnoses / Procedures Referred By Everardo fried Referred To Contact Orthopedic Surgery / Orthopedics Selfreferral, Patient Deon Taylor MD [address] [place] [address] Referral ID Status Reason Start Date Expiration Date Visits Re quested Visits Authorized [id number] Closed 12/04/2022 12/04/2023 1 1 Encounter Details Date Type Department Care Team (Late st Contact Info) Description 06/04/2023 1:45 PM SPINNING LATHE OPERATOR HYDRAULIC Office Visit [facility] [address] [place] [address], [place] [address] Deon Taylor MD [address] [place] [address] S/P cervical spinal fusion (Primary Dx) Social [...] heating? 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 This note was transcribed using Werkadoo dictation software and may include inaccuracies in technical solutions engineer which were unrecognized and not corrected. Please reach out to my clinical specialist Delaney De Luna RN at [phone] for any questions or concerns. Deon Taylor MD NING LATHE OPERATOR HYDRAULIC documented in this encounter Plan of Treatment Upcoming Encounters Date Type Department Care Team (Late st Contact Info) Description 06/02/2024 1:45 PM SPINNING LATHE OPERATOR HYDRAULIC Office Visit [facility] [address] [facility], [place] [address] Deon Taylor MD [address] [place] [address] documented as of this encounter Visit Diagnoses Diagnosis S/P cervical spinal fusion- Primary Arthrodesis status documented in this encounter Care Teams Property Management Intern Relationship Specialty Start Date End Date Karrie Phillips MD [address] [place] [address] PCP - General 03/13/22 documented as of this encounter
--- OUTSIDE RECORDS SUMMARY | 2024-04-11 21:56 | XMS_ITS | Clinical Summary ---
Author Organization [facility] Address [address] [facility] [place] [address] Care Team Providers Care Ecology Teacher Name Role Phone Karrie Phillips MD Primary Care Provider [phone] Source Comments [facility],non-owned Affiliates and Associated Physician Practices is amultiple site organization consisting of ambulatory clinics and hospital sitesin [place], [place], [place] and [place]. This disclosure is being madepursuant to the Care Everywhere program and may not contain all information available regarding this patient. Last updated 17.[facility] Allergies Active Allergy Reactions Criticality Noted Date [...] 24 hours. 02/19/2022 Active saline nasal spray ([place]; Baby [place]) 0.65 % nasal spray [place] 1 (one) spray into each nostril as [...] and heating? Not hard at all 06/04/2022 [facility] [place] of Occupat ional Health - Occupational Stress [...] place to sleep or slept in a half-way (including now)? No 06/04/2022 Sex and Gender [...] lb 3.2 oz) 06/04/2023 2:02 P M EMBEDDED SOFTWARE ARCHITECT Height 154.9 cm (5' 1 ) 12/04/2022 2:47 PM CDT Body Mass Index 28.57 12/04/2022 2:47 PM CDT Plan of Treatment Upcoming Encounters Date Type Department Care Team (Late st Contact Info) Description 06/02/2024 1:45 PM EMBEDDED SOFTWARE ARCHITECT Office Visit [facility] [address] [place] [address], [facility] [place] [address] Deon Taylor MD [address] [place] [address] Health Maintenance Due Date Last Done Comments [...] this topic Medical Devices Implanted Type Area Educational Aide Device Identifier Shelf Expiration Date Model / Serial / Lot Jean Bone Void 10ml Dbm Grftn Algrf Ptty Implanted:Qty: 1 on 06/04/2022 by Deon Taylor MD at [facility] N/A: Spine [employer] Inc 05/04/2025 [id number] / / [id number] 90mm Rods Implanted:Qty: 2 on 06/04/2022 by Deon Taylor MD at [facility] N/A: Spine Synthes Spine [id number] / / Jean Bone Void 10ml Dbm Grftn Algrf Ptty Implanted:Qty: 1 on 06/04/2022 by Deon Taylor MD at [facility] N/A: Spine [employer] 05/04/2025 [id number] / / [id number] Graft Bone Canc 4-9.5mm 15cc Frzdr Chp Implanted:Qty: 1 on 06/04/2022 by Deon Taylor MD at [facility] N/A: Spine [employer]ource 02/26/2027 [id number] / / [id number] Graft Bone Canc 4-9.5mm 30cc Algrf Frzdr Implanted:Qty: 1 on 06/04/2022 by Deon Taylor MD at [facility] N/A: Spine [employer] 12/27/2025 [id number] / / [id number] 3.5 X 14mm Screw Implanted:Qty: 4 on 06/04/2022 by Deon Taylor MD at [facility] N/A: Spine Synthes Spine [id number] / / 4.0x 20mm Screw Implanted:Qty: 2 on 06/04/2022 by Deon Taylor MD at [facility] N/A: Spine [employer]ynthes Spine [id number] / / 5.0 X 24mm Screw Implanted:Qty: 2 on 06/04/2022 by Deon Taylor MD at [facility] N/A: Spine Synthes Spine [id number] / / 4.5 X 26mm Screw Implanted:Qty: 2 on 06/04/2022 by Deon Taylor MD at [facility] N/A: Spine Synthes Spine [id number] / / Screw Caps Implanted:Qty: 10 on 06/04/2022 by Deon Taylor MD at [facility] N/A: Spine [employer]ynthes Spine [id number] / / Procedures Procedure Name Priority Date/Time Associated Diagnosis Comments BASIC METABOLIC PANEL (CALCIUM TOTAL) AM Draw 06/23/2022 3:06 AM CDT Coffee ground emesis HEMOGLOBIN A1C Routine 06/06/2022 3:07 AM EMBEDDED SOFTWARE ARCHITECT from Last 3 Months or Most Recently [...] 06/23/2022 3:06 AM CDT 06/23/2022 4:03 AM [facility] Anabell Hernandez PA-C LAB - CHEMISTRY ORD ERABLES [facility] [address] [place] [address], [facility] [phone] * HEMOGLOBIN A1C (06/06/2022 3:07 AM EMBEDDED SOFTWARE ARCHITECT) Hemoglobin A1c 5.3 <=5.6 % 06/06/2022 3:38 PM [facility] Estimated Average Glucose 105 mg/dL 06/06/2022 3:38 PM [facility] Comment: HbA1c Interpretation: Normal : < 5.7% Pre-diabetes: 5.7-6.4% Diabetes: Equal to or greater than 6.5% Test results diagnostic of diabetes should be repeated for confirmation. Treatment target values recommended by ADA and other clinical organizations should be used to evaluate metabolic control in patients. Reference: [place] [employer], Standards of Care in Diabetes -2020 In patients 70 years and older consider HbA1c target range of 7.0-7.5% (Reference: Oswaldo Liz et al. JAMDA. 2012) The Sebia assay for the measurement of HbA1c is a National Glycohemoglobin Standardization Program (NGSP) certified method. Blood BLOOD SPECIMEN / Unknown Lab Venipuncture / Unknown 06/06/2022 3:07 AM EMBEDDED SOFTWARE ARCHITECT 06/06/2022 3:28 AM [facility] Gonzalez MD LAB - CHEMISTRY ORDERABLES [facility] [address] [place] [address], [facility] [phone] from Last 3 Months or Most Recently Relevant to Health Maintenance Advance Directives * Full Code (Latest Code Status on File) Date Activated Date Inactivated Comments 06/20/2022 6:09 PM 06/23/2022 5:59 PM * Full Code Date Activated Date Inactivated Comments 06/04/2022 1:16 PM 06/08/2022 11:04 PM * Full Code Date Activated Date Inactivated Comments 02/15/2022 5:44 AM 02/19/2022 3:38 PM Care Teams Ecology Teacher Relationship Specialty Start Date End Date Karrie Phillips MD [address] [place] [address] PCP - General 03/13/22
--- OUTSIDE RECORDS SUMMARY | 2024-04-11 21:57 | XMS_ITS | Encounter Summary ---
Author Organization [facility] Address [address] [facility] [place] [address] Care Team Providers Care Mending Carrier Name Role Phone Karrie Phillips MD Primary Care Provider [phone] Encounter Details Date Type Department Care Team (Late st Contact Info) Description 07/18/2022 10:46 AM CDT - 07/18/2022 11:00 AM CDT Hospital Encounter [facility] DIAGNOSTIC RAD CSM [address]L [address] [facility] [place] [phone] Lyla Blackwell, JUDGE CLERK-YOUTH COORDINATOR [address] [facility] [place] [address] Discharge Disposition: Home or Self Care Social [...] and heating? Not hard at all 06/04/2022 [facility] [place] of Occupat ional Health - Occupational Stress [...] mouth every evening 06/08/2022 saline nasal spray ([place]; Baby [place]) 0.65 % nasal spray [place] 1 (one) spray into each nostril as needed for Dry Nose 15 mL 02/19/2022 vitamin D3 (Cholecalciferol) 10 MCG (400 UNIT) tablet Take 2 (two) tablets by mouth once daily 06/09/2022 documented as of this encounter Plan of Treatment Upcoming Encounters Date Type Department Care Team (Late st Contact Info) Description 06/02/2024 1:45 PM ELECTRONIC IMAGING SYSTEM OPERATOR Office Visit [facility] [place] [address] Deon Taylor MD [address] [place] [address] documented as of this encounter Procedures Procedure [...] MD on 07/18/2022 11:31 AM Lyla Blackwell JUDGE CLERK-YOUTH COORDINATOR DIAGNOSTIC IMAG ING ORDERABLES documented in this encounter Visit Diagnoses Not on filedocumented in this encounter Care Teams Mending Carrier Relationship Specialty Start Date End Date Karrie Phillips MD [address] [place] [address] PCP - General 03/13/22 documented as of this encounter
--- OUTSIDE RECORDS SUMMARY | 2024-04-11 21:57 | XMS_ITS | Encounter Summary ---
Author Organization [facility] Address [address] [place] [address] Care Team Providers Care Manager Car Name Role Phone Karrie Phillips MD Primary Care Provider [phone] Encounter Details Date Type Department Care Team (Late st Contact Info) Description 06/14/2022 Orders Only [facility] [address] [place] [address], [place] [address] Deon Taylor MD [address] [place] [phone] Neck pain Social History Tobacco Use Types [...] and heating? Not hard at all 06/04/2022 [facility] [place] of Occupat ional Health - Occupational Stress [...] st Contact Info) Description 06/02/2024 1:45 PM NAILHEAD OPERATOR Office Visit [facility] [address] [facility], [place] [address] Deon Taylor MD [address] [place] [address] documented as of this encounter Visit Diagnoses Diagnosis Neck pain- Primary Cervicalgia documented in this encounter Care Teams Manager Car Relationship Specialty Start Date End Date Karrie Phillips MD [address] [place] [address] PCP - General 03/13/22 documented as of this encounter
--- OUTSIDE RECORDS SUMMARY | 2024-04-11 21:57 | XMS_ITS | Encounter Summary ---
[facility] Address [address] [place] [address] Care Team Providers Care Putty Worker Name Role Phone Karrie Phillips MD Primary Care Provider [phone] Reason for Visit * Reason Comments VOMITING BLOOD Pt arrived via [employer] vehicle. Pt states she was encouraged to come here from her clinic appointment today d/t dark red emesis. Pt states she is having increased dizziness with movement and nausea. Pt states she is chilling. * Auth/Cert (Routine) Specialty Diagnoses / Procedures Referred By Everardo fried Referred To Contact Referral ID Status Reason Start Date Expiration Date Visits Re quested Visits Authorized [id number] 1 1 Encounter Details Date Type Department Care Team (Late st Contact Info) Description 06/21/2022 4:40 PM CDT - 06/21/2022 5:28 PM CDT Surgery [facility] ENDOSCOPY [address] [place] [address] Carmen Morales MD [address] [place] [address] ESOPHAGOGASTRODUODENOSCOPY (EGD) DIAGNOSTIC Surgery Details Date/Time Status Location OR Service Patient Class Case Class Case Type Trauma Case? 06/21/2022 4:40 PM Posted [facility] Endoscopy ENDO 4 Gastroenterology Inpatient Urgent [...] and heating? Not hard at all 06/04/2022 [facility] - Occupational [...] Hospital Discharge Summary Patient ID: Kandace Cole [id number] 72 year old 1950 Admit date: 06/20/2022 [...] Esophagus, chronic hyponatremia, MDD that presented to [facility] on 06/20 from her follow up appointment with her spine surgeon for staple removal with rapid onset of 1 day of 10-20 episodes of vomiting and noted some coffee ground emesis at home. No prior previous reported episodes. On arrival to [facility], she was slightly hypertensive, remaining VSS. [...] by Yasir Pierre MD (vice president of consulting services). Kamila Narvaez MD have personally reviewed and [...] by Sherlyn Hopkins DO (vice president of consulting services). Chaim Narvaez have personally reviewed and interpreted [...] 0.65 % nasal spray Commonly known as: [place]; Baby [place] Mcclusky 1 (one) spray into each nostril as needed for Dry Nose vitamin D3 10 MCG (400 UNIT) tablet Commonly known as: Cholecalciferol Take 2 (two) tablets by mouth once daily Where to Get Your Medications These medications were sent to [id number] - [address] [facility] [address] [address] [facility] [address] ?? ondansetron (disintegrating) 4 MG tablet Follow-up Information Karrie Phillips MD . Specialty: Family Medicine Contact information: [facility] [place] [phone] Follow up with provider . Discharge Instructions [...] care provider. If you need to call [facility] for any reason, you may reach us at [phone] and dial 0 for the alodize machine operator. If you have any questions about your medications, please be sure to ask the pharmacy when you parts picker your prescription. You may also call [...] the nearest emergency room or call EMS ([phone]). It is essential that you keep all of your follow-up appointments and go to your doctors appointments as scheduled. If a follow-up with your primary care provider has not been scheduled, you need to schedule an appointment tofollow-up on your hospitalization. If there is a conflict, please call the clinic ahead of time and reschedule the appointment. Thanks! Internal Medicine Department [facility] [address] [place] [address] Signed: Anabell Hernandez PA-C 06/23/2022 Time spent [...] care provider. If you need to call [facility] for any reason, you may reach us at [phone] and dial 0 for the alodize machine operator. If you have any questions about your medications, please be sure to ask the pharmacy when you parts picker your prescription. You may also call [...] reschedule the appointment. Thanks! Internal Medicine Department [address] [address] documented in this encounter Medications at Time [...] mouth every evening 06/08/2022 saline nasal spray ([place]; Baby [place]) 0.65 % nasal spray Mcclusky 1 (one) spray into each nostril as [...] Arciniega, OT - 06/22/2022 3:[address] [facility] Department of Physical Medicine & Rehabilitation Progress Note Patient: Kandace Cole [facility] Record Number: [id number] Date of : 1950 Age: [age] year old Per PT, the patient is independent with ADLs and functional mobility, no skilled OT indicated. D/C OT. * Ange Whitman, PT - 06/22/2022 2:55 PM CDT [facility] Physical Medicine and Rehabilitation Physical Therapy Initial Evaluation Note Patient: Kandace Cole [facility] Record Number: [id number] Date of : 1950 Age: [age] year [...] as Tolerated Spine Precautions: Yes Spine Precautions: [place] DIAGNOSIS: Patient Active Problem List: Degeneration of [...] disease, without long-term current use of insulin ([facility]/HCC) Temporomandibular joint disorder Systemic sclerosis (CMS/HCC) [...] to have w/c after neck surgery. riaz.) Machine Wedger issued to pt. Pt has bed rails. [...] activity this date. Bed Mobility: Rolling: Modified [place] Supine to Sit: Modified [place] with HOB in semi-fowlers position Sit to Supine: Modified [place] Pt has bed wedge at home to elevate head. Transfers: Sit to Stand: Complete [place] Stand to Sit: Complete [place] Bed to Chair: Complete [place] Type of Transfer: Stand Pivot Transfer Transfer Device: Gait belt;Walker-2 Wheeled Gait: Weight Bearing Status: (WBAT x4 in aspen collar) Distance Ambulated: 125 FEET Ambulation: Assistive Device: Gait Belt;Walker-2 Wheeled Ambulation: Level of Assistance: Modified [place] Ambulation: Gait Deviations: (normal) Balance: Balance Scales/Tests [...] neck surgery. Equipment Issued: gait belt and leather cutter Plan: Plan: Discontinue IP PT If patient [...] by Yasir Pierre MD (vice president of consulting services). Kamila Narvaez MD have personally reviewed and [...] by Sherlyn Hopkins DO (vice president of consulting services). Chaim Narvaezs have personally reviewed and interpreted [...] questions/concerns. Naif Tenorio MD Internal Medicine, PGY-1 [facility] Associated attestation - Ike Mcpherson MD - 06/22/2022 10:15 AM CDT I have personally seen and examined this patient. I agree with the warehouse lead's findings, assessment and plan as outlined. In [...] by Yasir Pierre MD (vice president of consulting services). Kamila Narvaez MD have personally reviewed and [...] by Sherlyn Hopkins DO (vice president of consulting services). 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 Home when medically clear. Lives with: Other (Comment) (Grandson) Physical Limitations: None Requires Assistance With: None Preferred Pharmacy: [facility] - [address] [facility] [address] [address] [facility] [address] READMISSION RISK SCORE is 20* at 4:42 PM 06/21/2022. Pt LYNNETTE in procedure, chart reviewed. Family Support (name and phone): Extended Emergency Contact Information Primary Emergency Contact: BARBARA CISNEROS Mobile Relation: Brother Secondary Emergency Contact: Barbara Cisneros Address: [place], [place] Relation: Other Patient or event sales representative requests care coordination reach out to family or caregiver listed above regarding discharge planning and at time of discharge? No Equipment at Home: Chair-Shower;Grab Bars;Cane-Small Base Quad;Walker-2 Wheeled;Walker-4 Wheeled with Seat Online Activist Referral: No Will continue to follow. For any questions or needs please contact: Event Planning Intern Name/Phone number: Krystle Guerrero RN [phone] * Ori Iyer PA-C - 06/21/2022 10:19 [...] by Yasir Pierre MD (vice president of consulting services). Kamila Narvaez MD have personally reviewed and [...] by Sherlyn Hopkins DO (vice president of consulting services). IChaim have personally reviewed and interpreted this [...] continue amlodipine 5 mg daily (started at [facility]) T2DM Hypoglycemia likely 2/2 NPO vs [...] Feel free to text page me through Hobby Date of service: 06/21/2022 Attending Physician: Abeba Will DO * Leobardo Chisholm RN - 06/21/2022 12:24 AM CDT RN called [employer] for infusion channel. * Leobardo Chisholm RN - 06/20/2022 11:21 PM CDT RN called [employer] for SCD pump and Alaris brain w/ channel. * Leobardo Chisholm RN - 06/20/2022 11:00 PM CDT [facility] staff brought SCD pump and [facility] Brain to bedside. [facility] [...] 72 year old, female : 1950 CSN: [id number] Primary Care Physician: Karrie Phillips MD, MD [...] results for input(s): PTT in the last 86090 hours. Cultures No results found for this or any previous visit (from the past 248 hour(s)). Physical Exam General: Awake, alert, follows commands, ill appearing Neck: - C-collar/[place] J: Present - Dressing: clean and dry [...] closed fractures of facial bone, initial encounter ([facility]) Abdominal pain Abnormal serum creatinine level Anemia Heredia's esophagus Cardiomegaly Chronic kidney disease Chronic obstructive pulmonary disease ([facility]) Chronic depression Dyspnea on exertion Benign essential hypertension Glaucoma Hyperkalemia Hyposmolality Hyperthyroidism Hypothyroidism Intractable chronic migraine without aura Iron deficiency anemia Leukocytosis Macular degeneration Migraine Ulnar neuropathy Type 2 diabetes mellitus ([facility]) Type 2 diabetes mellitus with stage 3 chronic kidney disease, without long-term current use of insulin ([facility]) Temporomandibular joint disorder Systemic sclerosis ([facility]) Sprain of ankle Sciatica Recurrent major depression in remission ([facility]) Raynaud's disease Primary fibromyalgia syndrome Polyp of colon Perineal pain Paronychia of toe of right foot Onychomycosis of toenail Nonexudative 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 Nausea Multiple bruises Mixed hyperlipidemia Mixed collagen vascular disease ([facility]) Shortness of breath Abdominal pain, left [...] 06/08/22 Tammi Perez MD saline nasal spray ([place]; Baby [place]) 0.65 % nasal spray Mcclusky 1 (one) spray into each nostril as [...] by Yasir Pierre MD (vice president of consulting services). I, Kamila Barber MD have personally reviewed [...] most recent endoscopic evaluation was 12/2022 in [place]. States at that time there was continued [...] mouth every evening ??? saline nasal spray ([place]; Baby [place]) 0.65 % nasal spray Mcclus[place] 1 (one) spray into each nostril as [...] by Yasir Pierre MD (vice president of consulting services). Kamila Narvaez MD have personally reviewed and [...] by Sherlyn Hopkins DO (vice president of consulting services). IChaim have personally reviewed and interpreted this examination/study. > Interpreting Provider: Chaim Martins on 06/20/2022 10:47 PM Procedures: Prior endoscopies notable for remote EGD hx of Heredia's esophagus in 2019. States most recent endoscopic evaluation was 12/2022 in [place]. States at that time there was continued [...] 162, trans % sat 10, TIBC 203, [id number], folate 9.4, B12 382. No s/s of [...] AM cortisol to evaluate adrenal function, no residential steroid use per history.TSH from 02/16/2022 wnl. [...] questions. Naif Tenorio MD Internal Medicine, PGY-1 [facility] Associated attestation - Ike Mcpherson MD - 06/21/2022 11:56 AM CDT I have personally seen and examined this patient. I agree with the warehouse lead's findings, assessment and plan as outlined. In [...] - 06/20/2022 2:45 PM CDT Kandace Cole [id number] [facility] EMERGENCY DEPARTMENT History Chief Complaint Patient [...] mouth every evening ??? saline nasal spray ([place]; Baby [place]) 0.65 % nasal spray Mcclus[place] 1 (one) spray into each nostril as [...] recent spinal surgery vs volume depleted vs [place] - pantoprazole 40mg given - ondansetron 4mg [...] and medical decision making; and I had upjz-ww-cfms time with this patient. I have conducted [...] pain. VSS. DDx: GI bleed, gastritis, gastroenteritis, [place], cardiac arrhythmia, electrolyte derangement; less concern for [...] DATE/TIME OF EXAM: 06/20/2022 3:13 PM, LOCATION [facility] INDICATION: R42: Dizziness R06.02: Shortness of [...] by Yasir Pierre MD (vice president of consulting services). I, Kamila Barber MD have personally reviewed and interpreted this examination/study. > Interpreting Provider: Kamila Barber MD on 06/20/2022 4:25 PM XR CHEST 2VW Final Result PROCEDURE: XR CHEST 2VW, DATE/TIME OF EXAM: 06/20/2022 3:03 PM, LOCATION [facility] INDICATION: R06.02: Shortness of breath ADDITIONAL [...] by Yasir Pierre MD (vice president of consulting services). I, Haroldo Ball MD have personally reviewed [...] mg (40 mg Intravenous $ Given 06/20/22 3133) Procedures None ED COURSE Patient seen and [...] and medical decision making; and I had gneb-xg-xywt time with this patient. I have conducted [...] mouth every evening ??? saline nasal spray ([place]; Baby [place]) 0.65 % nasal spray [place] 1 (one) spray into each nostril as [...] st Contact Info) Description 06/02/2024 1:45 PM RADIOLOGY PHYSICIAN ASSISTANT Office Visit [facility] - Orthopedics [address] [place] [address], [facility] [place] [address] Deon Taylor MD [address] [place] [address] Scheduled Orders Name Type Priority Associated Diagnoses [...] 06/21/2022 4:40 PM CDT Coffee ground emesis [place] ESOPHAGEAL CAPSULE ENDOSCOPY 06/21/2022 4:37 PM CDT Coffee ground emesis [place] ED EGD FLEX TRANSORAL DX 06/21/2022 4:37 [...] CBC W/O DIFFERENTIAL (06/23/2022 3:47 AM CDT) [facility] WBC 7.7 3.5 - 10.5 10? 3 /uL 06/23/2022 4:[address] [facility] RBC 2.66(L) 3.80 - 5.20 10? 6 /uL 06/23/2022 4:[address] [facility] Hemoglobin 8.0(L) 12.0 - 15.6 g/dL 06/23/2022 4:[address] [facility] Hematocrit 24.2(L) 35.0 - 45.0 % 06/23/2022 4:[address] [facility] MCV 91.0 80.7 - 98.3 fL 06/23/2022 4:[address] [facility] MCH 30.1 26.7 - 34.0 pg 06/23/2022 4:[address] [facility] MCHC 33.1 30.8 - 35.9 g/dL 06/23/2022 4:[address] [facility] RDW-SD 45.0 36.0 - 50.0 fL 06/23/2022 4:[address] [facility] RDW-CV 13.7 11.2 - 14.8 % 06/23/2022 4:[address] [facility] Platelet Count 305 150 - 400 10? 3 /uL 06/23/2022 4:[address] [facility] MPV 9.7 9.4 - 12.9 fL 06/23/2022 4:[address] [facility] nRBC Absolute 0.00 0 10? 3 /uL 06/23/2022 4:[address] [facility] nRBC Auto 0.0 0 /100 WBC 06/23/2022 4:17 AM CDT [facility] Blood BLOOD SPECIMEN / Unknown Lab Venipuncture / Unknown 06/23/2022 3:47 AM CDT 06/23/2022 4:10 AM CDT Ori Iyer PA-C LAB - HEMATOLOGY OR DERABLES Performing Organization Address City/[facility]/ZIP Co de Phone Number [address] [address], [facility] [phone] * MAGNESIUM BLOOD (06/23/2022 3:06 AM CDT) Magnesium 2.3 1.6 - 2.6 mg/dL 06/23/2022 4:41 AM CDT [facility] Blood BLOOD SPECIMEN / Unknown Lab Venipuncture / Unknown 06/23/2022 3:06 AM CDT 06/23/2022 4:03 AM CDT Anabell Hernandez PA-C LAB - CHEMISTRY ORD ERABLES Performing Organization Address City/[facility]/ZIP Co de Phone Number [address] [address], [facility] [phone] * (ABNORMAL) BASIC METABOLIC PANEL (CALCIUM TOTAL) (06/23/2022 3:06 AM CDT) BUN 10 7 - 26 mg/dL 06/23/2022 4:38 AM CDT [facility] Creatinine 1.09(H) 0.56 - 0.96 mg/dL 06/23/2022 4:38 AM T [facility] Sodium 131(L) 136 - 145 mmol/L 06/23/2022 4:38 AM T [facility] Potassium 4.2 3.5 - 4.5 mmol/L 06/23/2022 4:[address] [facility] Chloride 100 98 - 107 mmol/L 06/23/2022 4:38 AM T [facility] CO2 22 22 - 29 mmol/L 06/23/2022 4:[address] [facility] Glucose 111 70 - 115 mg/dL 06/23/2022 4:[address] [facility] Calcium 8.2(L) 8.4 - 10.2 mg/dL 06/23/2022 4:[address] [facility] Anion Gap 13 8 - 18 06/23/2022 4:[address] [facility] BUN/Creatinine Ratio 9 7 - 23 06/23/2022 4:[address] [facility] Osmolality Calculated 272 270 - 300 mOsm/kg 06/23/2022 4:[address] [facility] eGFR by CKD-EPI 54(L) >=90 mL/min/1.7 3 m2 06/23/2022 4:[address] [facility] Blood BLOOD SPECIMEN / Unknown Lab Venipuncture / Unknown 06/23/2022 3:06 AM CDT 06/23/2022 4:03 AM CDT Anabell Hernandez PA-C LAB - CHEMISTRY ORD ERABLES [address] [address], [place] [phone] * GLUCOSE - POINT OF CARE (06/22/2022 4:11 PM CDT) Glucose WB/POC 105 70 - 115 mg/dL 06/22/2022 4:12 PM T [facility] Specimen Type Arterial 06/22/2022 4:12 PM T [facility] Blood BLOOD SPECIMEN / Unknown 06/22/2022 4:11 PM CDT 06/22/2022 4:12 PM CDT Abeba Will DO LAB - POINT OF CARE ORDERABLES [address] [address], [place] [phone] * (ABNORMAL) GLUCOSE - POINT OF CARE (06/22/2022 11:18 AM CDT) Glucose WB/POC 180(H) 70 - 115 mg/dL 06/22/2022 11:[address] [facility] Specimen Type Cap Fingerstick 2022 11:[address] [facility] Blood BLOOD SPECIMEN / Unknown 06/22/2022 11:18 AM CDT 06/22/2022 11:19 AM CDT Abeba Will DO LAB - POINT OF CARE ORDERABLES Performing Organization Address City/State/[facility] Co de Phone Number [facility] [address] [place] [address], [facility] [phone] * (ABNORMAL) CBC W/O DIFFERENTIAL (06/22/2022 2:34 AM CDT) WBC 9.1 3.5 - 10.5 10? 3 /uL 06/22/2022 3:[address] [facility] RBC 2.70(L) 3.80 - 5.20 10? 6 /uL 06/22/2022 3:[address] [facility] Hemoglobin 8.0(L) 12.0 - 15.6 g/dL 06/22/2022 3:[address] [facility] Hematocrit 24.2(L) 35.0 - 45.0 % 06/22/2022 3:[address] [facility] MCV 89.6 80.7 - 98.3 fL 06/22/2022 3:[address] [facility] MCH 29.6 26.7 - 34.0 pg 06/22/2022 3:[address] [facility] MCHC 33.1 30.8 - 35.9 g/dL 06/22/2022 3:[address] [facility] RDW-SD 44.2 36.0 - 50.0 fL 06/22/2022 3:[address] [facility] RDW-CV 13.5 11.2 - 14.8 % 06/22/2022 3:[address] [facility] Platelet Count 358 150 - 400 10? 3 /uL 06/22/2022 3:[address] [facility] MPV 9.2(L) 9.4 - 12.9 fL 06/22/2022 3:11 AM CDT [facility] nRBC Absolute 0.00 0 10? 3 /uL 06/22/2022 3:11 AM CDT [facility] nRBC Auto 0.0 0 /100 WBC 06/22/2022 3:11 AM CDT [facility] Blood BLOOD SPECIMEN / Unknown Lab Venipuncture / Unknown 06/22/2022 2:34 AM CDT 06/22/2022 3:01 AM CDT Ori Iyer PA-C LAB - HEMATOLOGY OR DERABLES [address] [address], [facility] [phone] * (ABNORMAL) MAGNESIUM BLOOD (06/22/2022 2:34 AM CDT) Magnesium 1.5(L) 1.6 - 2.6 mg/dL 06/22/2022 3:29 AM CDT [facility] Blood BLOOD SPECIMEN / Unknown Lab Venipuncture / Unknown 06/22/2022 2:34 AM CDT 06/22/2022 3:02 AM CDT Ori Iyer PA-C LAB - CHEMISTRY ORD ERABLES Performing Organization Address City/[facility]/ZIP Co de Phone Number [address] [address], [place] [phone] * (ABNORMAL) RENAL FUNCTION PANEL (06/22/2022 2:34 AM CDT) BUN 13 7 - 26 mg/dL 06/22/2022 3:29 AM CDT [facility] Creatinine 1.07(H) 0.56 - 0.96 mg/dL 06/22/2022 3:29 AM CDT [facility] Sodium 132(L) 136 - 145 mmol/L 06/22/2022 3:29 AM CDT [facility] Potassium 3.8 3.5 - 4.5 mmol/L 06/22/2022 3:[address] [facility] Chloride 99 98 - 107 mmol/L 06/22/2022 3:[address] [facility] CO2 25 22 - 29 mmol/L 06/22/2022 3:[address] [facility] Glucose 126(H) 70 - 115 mg/dL 06/22/2022 3:[address] [facility] Albumin 2.8(L) 3.4 - 5.0 g/dL 06/22/2022 3:[address] [facility] Calcium 8.5 8.4 - 10.2 mg/dL 06/22/2022 3:[address] [facility] Phosphorus 2.8(L) 2.9 - 5.1 mg/dL 06/22/2022 3:[address] [facility] Anion Gap 12 8 - 18 06/22/2022 3:[address] [facility] BUN/Creatinine Ratio 12 7 - 23 06/22/2022 3:[address] [facility] Osmolality Calculated 276 270 - 300 mOsm/kg 06/22/2022 3:[address] [facility] eGFR by CKD-EPI 55(L) >=90 mL/min/1.7 3 m2 06/22/2022 3:[address] [facility] Blood BLOOD SPECIMEN / Unknown Lab Venipuncture / Unknown 06/22/2022 2:34 AM CDT 06/22/2022 3:02 AM CDT Ori Iyer PA-C LAB - CHEMISTRY ORD ERABLES Performing Organization Address City/State/[facility] Co de Phone Number [facility] [address] [place] [address], [facility] [phone] * CORTISOL BLOOD AM (06/22/2022 2:34 AM CDT) Cortisol AM 14.3 3.7 - 19.4 ug/dL 06/22/2022 3:[address] [facility] Blood BLOOD SPECIMEN / Unknown Lab Venipuncture / Unknown 06/22/2022 2:34 AM CDT 06/22/2022 3:02 AM CDT Narrative [facility] - 06/22/2022 3:49 AM CDT Normal cortisol levels are generally highest in the morning hours and lowest from late evening through the clerical office worker 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 ??The PM measurements of cortisol run approximately one-half to one-third of the AM values. Ori Iyer PA-C LAB - CHEMISTRY ORD ERABLES Performing Organization Address [facility] Co de Phone Number [facility] [address] [place] [address], [place] [phone] * GLUCOSE - POINT OF CARE (06/21/2022 5:10 PM CDT) Glucose WB/POC 103 70 - 115 mg/dL 06/21/2022 5:14 PM CDT [facility] Specimen Type Cap Fingerstick 2022 5:14 PM CDT [facility] Blood BLOOD SPECIMEN / Unknown 06/21/2022 5:10 PM CDT 06/21/2022 5:14 PM CDT Abeba Will DO LAB - POINT OF CARE ORDERABLES Performing Organization Address [facility] Co de Phone Number [facility] [address] [place] [address], [place] [phone] * PATHOLOGY TISSUE (06/21/2022 4:40 PM CDT) Case Report Surgical Pathology Report ? Case: [id number] ? Authorizing Provider: ??Carmen Morales MD ? Collected: ? 06/21/2022 04:40 PM ? Ordering Location: ? [facility] ?Received: ?06/22/2022 08:59 AM ? Pathologist: ? Hansa Gusman MD ? Specimen: ?Small Bowel, small bowel biopsy r/o celiac ? 06/25/2022 2:27 PM [facility] PATHOLOGY LAB Final Diagnosis Small intestine, small bowel, biopsy (A): - No histopathologic abnormality - Intact villous and crypt architecture without increased intraepithelial lymphocytes 06/25/2022 2:27 PM [facility] PATHOLOGY LAB Microscopic Description and Comment Microscopic examination substantiates the final diagnosis. 06/25/2022 2:27 PM [facility] PATHOLOGY LAB Clinical History The patient is a 72-year-old woman presented with coffee-ground emesis who underwent upper GI endoscopy. 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 Duodenal bulb erythema, biopsied for evaluation of celiac disease. 06/25/2022 2:27 PM [facility] PATH[facility] Gross Description The requisition and specimen(s) are identified with the patient's name Kandace Cole. Received in formalin, specimen A , are 5 pink-freeman tissues, 0.3-0.9 cm in greatest dimension and 2.3 x 0.3 x 0.2 cm in aggregate, submitted in toto in cassette A1. DF 06/25/2022 2:27 PM [facility] PATH[facility] Disclaimer The performance characteristics of all immunohistochemical and indirect immunofluorescence stains (if any) cited in this report were determined by the Histopathology Laboratory of [facility]. Some of these tests were [...] (teaching) pathologist. 06/25/2022 2:27 PM CDT [facility] PATH[facility] LAB Embedded Images 06/25/2022 2:27 PM CDT [facility] PATH[facility] Resection without Tumor SMALL BOWEL RESECTION SPECIMEN / Unknown 06/21/2022 4:40 PM CDT 06/22/2022 8:59 AM CDT Comment:Pre-op diagnosis: Coffee ground emesis Carmen Morales MD LAB - PATHOLOGY/CYTO LOGY ORDERABLES [facility] PATH[facility] LAB [address] [place] [address], [facility] [phone] * EGD (06/21/2022 4:24 PM CDT) Report [...] Procedure Code(s): ? --- Professional --- ? 47327, Esophagogastroduode noscopy, flexible, transoral; with biopsy, ? single or multiple Diagnosis Code(s): ?--- Professional --- ?K22.70, Heredia's esophagus without dysplasia ?K92.0, Hematemesis CPT copyright 2019 [employer]. All rights reserved. The codes documented in this report are preliminary and upon national opelint analyst review may be revised to meet current compliance requirements. Carmen Morales, 06/21/2022 5:01:11 PM Note Initiated On: 06/21/2022 4:24 PM Number of Addenda: 0 ? [facility] ? [address] [place] [address] [facility] [place] 06/21/2022 4:24 PM CDT Abeba Will DO GI PROCEDURE ORDERAB LES Performing Organization Address City/[facility]/ZIP Co de Phone Number [facility] * CARDIAC EKG ORDER (06/21/2022 3:29 PM CDT) Narrative 06/21/2022 3:29 PM CDT Ordered by an unspecified provider. Scanned Document CARDIAC SERVICES ORD ERABLES * (ABNORMAL) GLUCOSE - POINT OF CARE (06/21/2022 2:59 PM CDT) Glucose WB/POC 143(H) 70 - 115 mg/dL 06/21/2022 3:04 PM CDT [facility] Specimen Type Cap Fingerstick 2022 3:04 PM CDT [facility] Blood BLOOD SPECIMEN / Unknown 06/21/2022 2:59 PM CDT 06/21/2022 3:04 PM CDT Abeba Will DO LAB - POINT OF CARE ORDERABLES Performing Organization Address [facility] Co de Phone Number [facility] [address] [place] [address], [facility] [phone] * (ABNORMAL) GLUCOSE - POINT OF CARE (06/21/2022 2:00 PM CDT) Pathologist [facility] Glucose WB/POC 47(LL) 70 - 115 mg/dL 06/21/2022 2:04 PM T [facility] Specimen Type Cap Fingerstick 2022 2:04 PM T [facility] Blood BLOOD SPECIMEN / Unknown 06/21/2022 2:00 PM CDT 06/21/2022 2:04 PM CDT Abeba Will DO LAB - POINT OF CARE ORDERABLES [facility] [address] [place] [address], [facility] [phone] * (ABNORMAL) CBC W AUTO DIFFERENTIAL (06/21/2022 2:03 AM CDT) [facility] WBC 8.0 3.5 - 10.5 10? 3 /uL 06/21/2022 2:[address] [facility] RBC 2.77(L) 3.80 - 5.20 10? 6 /uL 06/21/2022 2:[address] [facility] Hemoglobin 8.3(L) 12.0 - 15.6 g/dL 06/21/2022 2:[address] [facility] Hematocrit 25.9(L) 35.0 - 45.0 % 06/21/2022 2:[address] [facility] MCV 93.5 80.7 - 98.3 fL 06/21/2022 2:[address] [facility] MCH 30.0 26.7 - 34.0 pg 06/21/2022 2:[address] [facility] MCHC 32.0 30.8 - 35.9 g/dL 06/21/2022 2:[address] [facility] RDW-SD 46.8 36.0 - 50.0 fL 06/21/2022 2:[address] [facility] RDW-CV 13.8 11.2 - 14.8 % 06/21/2022 2:[address] [facility] Platelet Count 415(H) 150 - 400 10? 3 /uL 06/21/2022 2:[address] [facility] MPV 9.6 9.4 - 12.9 fL 06/21/2022 2:[address] [facility] nRBC Absolute 0.00 0 10? 3 /uL 06/21/2022 2:[address] [facility] nRBC Auto 0.0 0 /100 WBC 06/21/2022 2:[address] [facility] Neutrophils % 68.7 35.0 - 70.0 % 06/21/2022 2:[address] [facility] Lymphocytes % 17.2(L) 20.0 - 43.0 % 06/21/2022 2:[address] [facility] Monocytes % 10.7 5.0 - 13.0 % 06/21/2022 2:[address] [facility] Eosinophils % 2.3 0.0 - 6.0 % 06/21/2022 2:[address] [facility] Basophil % 0.6 0.0 - 2.0 % 06/21/2022 2:[address] [facility] Neutrophils Absolute 5.47 1.60 - 7.00 10? 3 /uL 06/21/2022 2:[address] [facility] Lymphocyte Absolute 1.37 1.10 - 3.90 10? 3 /uL 06/21/2022 2:[address] [facility] Monocytes Absolute 0.85 0.26 - 1.07 10? 3 /uL 06/21/2022 2:[address] [facility] Eosinophils Absolute 0.18 0.00 - 0.47 10? 3 /uL 06/21/2022 2:[address] [facility] Basophils Absolute 0.05 0.00 - 0.08 10? 3 /uL 06/21/2022 2:[address] [facility] Immature Granulocytes % 0.5 0.0 - 1.0 % 06/21/2022 2:[address] [facility] Immature Granulocytes Absolute 0.04 06/21/2022 2:[address] [facility] Blood BLOOD SPECIMEN / Unknown Lab Venipuncture / Unknown 06/21/2022 2:03 AM CDT 06/21/2022 2:39 AM CDT Deepa Georges MD LAB - HEMATOLOGY ORD ERABLES [facility] [address] [place] [address], [facility] [phone] * (ABNORMAL) COMPREHENSIVE METABOLIC PANEL (06/21/2022 2:03 AM CDT) BUN 14 7 - 26 mg/dL 06/21/2022 3:[address] [facility] Creatinine 1.11(H) 0.56 - 0.96 mg/dL 06/21/2022 3:[address] [facility] Sodium 134(L) 136 - 145 mmol/L 06/21/2022 3:[address] [facility] Potassium 4.2 3.5 - 4.5 mmol/L 06/21/2022 3:[address] [facility] Chloride 96(L) 98 - 107 mmol/L 06/21/2022 3:[address] [facility] CO2 25 22 - 29 mmol/L 06/21/2022 3:[address] [facility] Glucose 54(L) 70 - 115 mg/dL 06/21/2022 3:[address] [facility] Calcium 9.5 8.4 - 10.2 mg/dL 06/21/2022 3:[address] [facility] Protein Total 6.0 6.0 - 8.3 g/dL 06/21/2022 3:[address] [facility] Albumin 3.3(L) 3.4 - 5.0 g/dL 06/21/2022 3:[address] [facility] Bilirubin Total 0.7 0.2 - 1.2 mg/dL 06/21/2022 3:[address] [facility] Alkaline Phosphatase 62 40 - 150 U/L 06/21/2022 3:[address] [facility] ALT 10 5 - 55 U/L 06/21/2022 3:[address] [facility] AST 15 5 - 34 U/L 06/21/2022 3:[address] [facility] Anion Gap 17 8 - 18 06/21/2022 3:[address] [facility] BUN/Creatinine Ratio 13 7 - 23 06/21/2022 3:[address] [facility] Osmolality Calculated 276 270 - 300 mOsm/kg 06/21/2022 3:[address] [facility] Albumin/Globulin Ratio 1.2 1.1 - 2.3 06/21/2022 3:[address] [facility] eGFR by CKD-EPI 53(L) >=90 mL/min/1.7 3 m2 06/21/2022 3:[address] [facility] Blood BLOOD SPECIMEN / Unknown Lab Venipuncture / Unknown 06/21/2022 2:03 AM CDT 06/21/2022 2:[address] [facility] Deepa Georges MD LAB - CHEMISTRY [facility] Organization Address City/State/ZIP Co de Phone Number [address] [address], [facility] [phone] * (ABNORMAL) URINALYSIS REFLEX TO MICROSCOPIC NO CULTURE (06/21/2022 12:[address] [facility]) Color UA Yellow Straw, Yellow 06/21/2022 1:[address] [facility] Clarity UA Clear Clear 06/21/2022 1:[address] [facility] Specific [place] UA 1.048(H) 1.005 - 1.030 06/21/2022 1:[address] [facility] pH UA 7.0 5.0 - 8.0 pH 06/21/2022 1:[address] [facility] Protein UA Negative Negative 06/21/2022 1:[address] [facility] Glucose UA Negative Negative 06/21/2022 1:[address] [facility] Ketone UA 1+(A) Negative 06/21/2022 1:[address] [facility] Bilirubin UA Negative Negative 06/21/2022 1:[address] [facility] Blood UA Negative Negative 06/21/2022 1:[address] [facility] Nitrite UA Negative Negative 06/21/2022 1:[address] [facility] Leukocyte Esterase Trace(A) Negative 06/21/2022 1:04 AM CDT [facility] Urobilinogen UA Negative Negative mg/dL 06/21/2022 1:04 AM CDT [facility] RBC UA 0-2 None Seen, 0-2, 3-5 /HPF 06/21/2022 1:04 AM CDT [facility] WBC UA 0-5 None Seen, 0-5 /HPF 06/21/2022 1:04 AM CDT [facility] Squamous Epithelial Cells UA 0-2 None Seen, 0-2, 3-5 /HPF 06/21/2022 1:04 AM CDT [facility] Urine URINE SPECIMEN OBTAINED BY CLEAN CATCH PROCEDURE / Unknown Collection / Unknown 06/21/2022 12:50 AM CDT 06/21/2022 12:57 AM CDT Narrative [facility] - 06/21/2022 1:04 AM CDT Sima Kaufman PA-C LAB - URINALYSIS OR DERABLES [address] [address], [place] [phone] * (ABNORMAL) HEMOGLOBIN (06/20/2022 10:18 PM CDT) Pathologist [facility] Hemoglobin 8.5(L) 12.0 - 15.6 g/dL 06/20/2022 10:42 PM CDT [facility] Blood BLOOD SPECIMEN / Unknown Lab Venipuncture / Unknown 06/20/2022 10:18 PM CDT 06/20/2022 10:39 PM CDT Deepa Georges MD LAB - HEMATOLOGY ORD ERABLES [address] [address], [place] [phone] * B-TYPE NATRIURETIC PEPTIDE (06/20/2022 10:18 PM CDT) Pathologist [facility] BNP 99 <100 pg/mL 06/20/2022 11:17 PM [facility] Comment: A decision threshold of 100 [...] Georges MD LAB - CHEMISTRY [place]IG[facility] [address] [place] [address], [facility] [phone] * CT ANGIO ABDOMEN PELVIS (06/20/2022 5:05 [...] by Sherlyn Hopkins DO (vice president of consulting services). IChaim have personally reviewed and interpreted this examination/study. > Interpreting Provider: Chaim Martins on 06/20/2022 10:47 PM Narrative 06/20/2022 10:47 PM CDT PROCEDURE: ??CT ANGIO ABDOMEN PELVIS, DATE/TIME OF EXAM: ??06/20/2022 5:05 PM, LOCATION ??[facility] INDICATION: R10.12: Abdominal pain, left upper [...] PELVIS, DATE/TIME OF EXAM: 06/20/2022 5:05PM, LOCATION [facility] INDICATION: R10.12: Abdominal pain, left upper [...] by Sherlyn Hopkins DO (vice president of consulting services). I, Chaim Martins have personally reviewed and [...] by Yasir Pierre MD (vice president of consulting services). I, Kamila Barber MD have personally reviewed and interpreted this examination/study. > Interpreting Provider: Kamila Barber MD on 06/20/2022 4:25 PM Narrative 06/20/2022 4:25 PM CDT PROCEDURE: ??XR CERVICAL SPINE 2 OR 3VW, DATE/TIME OF EXAM: ??06/20/2022 3:13 PM, LOCATION ??[facility] INDICATION: R42: Dizziness R06.02: Shortness of [...] 3VW, DATE/TIME OF EXAM: 33:13 PM, LOCATION [facility] INDICATION: R42: Dizziness R06.02: Shortness of [...] by Yasir Pierre MD (vice president of consulting services). Kamila Narvaez MD have personally reviewed and interpreted this examination/study. > Interpreting Provider: Kamila Barber MD on 06/20/2022 4:25 PM Adolph Mckinney MD DIAGNOSTIC IMAGING ORDERABLES * XR CHEST 2VW (06/20/2022 3:02 PM CDT) Anatomical Region Laterality Modality Chest Radiographic Vivian ging 06/20/2022 3:13 PM CDT Narrative 06/20/2022 3:49 PM CDT PROCEDURE: ??XR CHEST 2VW, DATE/TIME OF EXAM: ??06/20/2022 3:03 PM, LOCATION [facility] INDICATION: R06.02: Shortness of breath ADDITIONAL [...] by Yasir Pierre MD (vice president of consulting services). Haroldo Narvaez MD have personally reviewed and interpreted this examination/study. > Interpreting Provider: Haroldo Ball MD on 06/20/2022 3:49 PM Procedure Note Haroldo Ball MD - 06/20/2022 PROCEDURE: XR CHEST 2VW, DATE/TIME OF EXAM: 06/20/2022 3:03 PM, LOCATION [facility] INDICATION: R06.02: Shortness of breath ADDITIONAL [...] by Yasir Pierre MD (vice president of consulting services). I, Haroldo Ball MD have personally reviewed and interpreted this examination/study. > Interpreting Provider: Haroldo Ball MD on 06/20/2022 3:49 PM Adolph Mckinney MD DIAGNOSTIC IMAGING ORDERABLES * TYPE + SCREEN PANEL (06/20/2022 2:05 PM CDT) Pathologist [facility] Antibody Screen NEG 2:53 PM CDT [facility] ABO Rh A POS 06/20/2022 2:53 PM CDT [facility] Blood Bank BLOOD SPECIMEN / Unknown Venipuncture / Unknown 06/20/2022 2:05 PM CDT 06/20/2022 2:08 PM CDT Adolph Mckinney MD LAB - BLOOD BANK O RDERABLES [facility] [address] [place] [address], [facility] [phone] * LACTIC ACID BLOOD (06/20/2022 2:05 PM CDT) [facility] Lactic Acid-Stat 1.1 <=2.0 mmol/L 06/20/2022 2:48 PM CDT [facility] Blood BLOOD SPECIMEN / Unknown Venipuncture / Unknown 06/20/2022 2:05 PM CDT 06/20/2022 2:23 PM CDT Adolph Mckinney MD LAB - CHEMISTRY OR DERABLES Performing Organization Address City/[facility]/ZIP Co de Phone Number [facility] [address] [address], [place] [phone] * LIPASE BLOOD (06/20/2022 2:05 PM CDT) [facility] Lipase 18 8 - 78 U/L 06/20/2022 2:50 PM CDT [facility] Blood BLOOD SPECIMEN / Unknown Venipuncture / Unknown 06/20/2022 2:05 PM CDT 06/20/2022 2:23 PM CDT Narrative [facility] - 06/20/2022 2:50 PM CDT Lipase results from the [employer] Alinity analyzer may not be comparable with other methodologies. Adolph Mckinney MD LAB - CHEMISTRY OR DERABLES [facility] [address] [place] [address], [facility] [phone] * PT-INR [facility] (06/20/2022 2:05 PM CDT) [facility] PT 13.4 12.1 - 14.8 Seconds 06/20/2022 2:48 PM CDT [facility] INR 1.0 See Comment 06/20/2022 2:48 PM CDT [facility] Comment:The suggested therap eutic range for standard coumadin (warfarin) therapy is an INR of 2.0-3.0. For high-risk patients (Mechanical Mitral Valve Prosthesis, etc.), the suggested prophylactic therapeutic range is an INR of 2.5-3.5. Blood BLOOD SPECIMEN / Unknown Venipuncture / Unknown 06/20/2022 2:05 PM CDT 06/20/2022 2:07 PM CDT Adolph Mckinney MD LAB - COAGULATION ORDERABLES [facility] [address] [place] [address], [facility] [phone] * (ABNORMAL) CBC W/O DIFFERENTIAL (06/20/2022 2:05 PM CDT) [facility] WBC 9.5 3.5 - 10.5 10? 3 /uL 06/20/2022 2:27 PM CDT [facility] RBC 3.07(L) 3.80 - 5.20 10? 6 /uL 06/20/2022 2:[address] [facility] Hemoglobin 9.3(L) 12.0 - 15.6 g/dL 06/20/2022 2:[address] [facility] Hematocrit 27.6(L) 35.0 - 45.0 % 06/20/2022 2:[address] [facility] MCV 89.9 80.7 - 98.3 fL 06/20/2022 2:[address] [facility] MCH 30.3 26.7 - 34.0 pg 06/20/2022 2:27 PM T [facility] MCHC 33.7 30.8 - 35.9 g/dL 06/20/2022 2:[address] [facility] RDW-SD 45.2 36.0 - 50.0 fL 06/20/2022 2:[address] [facility] RDW-CV 14.0 11.2 - 14.8 % 06/20/2022 2:[address] [facility] Platelet Count 463(H) 150 - 400 10? 3 /uL 06/20/2022 2:[address] [facility] MPV 9.2(L) 9.4 - 12.9 fL 06/20/2022 2:[address] [facility] nRBC Absolute 0.00 0 10? 3 /uL 06/20/2022 2:[address] [facility] nRBC Auto 0.0 0 /100 WBC 06/20/2022 2:[address] [facility] Blood BLOOD SPECIMEN / Unknown Venipuncture / Unknown 06/20/2022 2:05 PM CDT 06/20/2022 2:22 PM CDT Adolph Mckinney MD LAB - HEMATOLOGY O RDERABLES [facility] [address] [place] [address], [facility] [phone] * TROPONIN-I HIGH SENSITIVE REFLEX 1HOUR (06/20/2022 1:05 PM CDT) Troponin I High Sensitive 8 <=14 ng/L 06/20/2022 1:59 PM CDT [facility] Delta Troponin I HS 06/20/2022 1:59 PM CDT [facility] Comment:Delta value intentio anil not calculated. Baseline to 1 hour specimen collection interval exceeded. Blood BLOOD SPECIMEN / Unknown Venipuncture / Unknown 06/20/2022 1:05 PM CDT 06/20/2022 1:23 PM CDT Sima Kaufman PA-C LAB - CHEMISTRY ORD ERABLES Performing Organization Address [facility]/ZIP Co de Phone Number [address] [address], [place] [phone] * TROPONIN-I HIGH SENSITIVE BASELINE + 1HR (06/20/2022 9:49 AM CDT) Pathologist [facility] Troponin I High Sensitive 7 <=14 ng/L 06/20/2022 10:39 AM CDT [facility] Blood BLOOD SPECIMEN / Unknown Venipuncture / Unknown 06/20/2022 9:49 AM CDT 06/20/2022 9:55 AM CDT Sima Kaufman PA-C LAB - CHEMISTRY ORD ERABLES Performing Organization Address City/[facility]/ZIP Co de Phone Number [address] [address], [place] [phone] * (ABNORMAL) COMPREHENSIVE METABOLIC PANEL (06/20/2022 9:49 AM CDT) BUN 14 7 - 26 mg/dL 06/20/2022 10:32 AM CDT [facility] Creatinine 1.02(H) 0.56 - 0.96 mg/dL 06/20/2022 10:32 AM CDT [facility] Sodium 128(L) 136 - 145 mmol/L 06/20/2022 10:32 AM CDT [facility] Potassium 4.3 3.5 - 4.5 mmol/L 06/20/2022 10:32 AM T [facility] Chloride 93(L) 98 - 107 mmol/L 06/20/2022 10:[address] [facility] CO2 26 22 - 29 mmol/L 06/20/2022 10:[address] [facility] Glucose 91 70 - 115 mg/dL 06/20/2022 10:[address] [facility] Calcium 9.8 8.4 - 10.2 mg/dL 06/20/2022 10:[address] [facility] Protein Total 6.5 6.0 - 8.3 g/dL 06/20/2022 10:[address] [facility] Albumin 3.5 3.4 - 5.0 g/dL 06/20/2022 10:[address] [facility] Bilirubin Total 0.6 0.2 - 1.2 mg/dL 06/20/2022 10:[address] [facility] Alkaline Phosphatase 66 40 - 150 U/L 06/20/2022 10:[address] [facility] ALT 10 5 - 55 U/L 06/20/2022 10:[address] [facility] AST 16 5 - 34 U/L 06/20/2022 10:[address] [facility] Anion Gap 13 8 - 18 06/20/2022 10:[address] [facility] BUN/Creatinine Ratio 14 7 - 23 06/20/2022 10:[address] [facility] Osmolality Calculated 266(L) 270 - 300 mOsm/kg 06/20/2022 10:[address] [facility] Albumin/Globulin Ratio 1.2 1.1 - 2.3 06/20/2022 10:[address] [facility] eGFR by CKD-EPI 58(L) >=90 mL/min/1.7 3 m2 06/20/2022 10:[address] [facility] Blood BLOOD SPECIMEN / Unknown Venipuncture / Unknown 06/20/2022 9:49 AM T 06/20/2022 9:[address] [facility] Sima Kaufman PA-C LAB - CHEMISTRY ORD ERABLES [facility] [address] [place] [address] [phone] * (ABNORMAL) CBC W AUTO DIFFERENTIAL (06/20/2022 9:49 AM CDT) WBC 11.8(H) 3.5 - 10.5 10? 3 /uL 06/20/2022 9:[address] [facility] RBC 3.02(L) 3.80 - 5.20 10? 6 /uL 06/20/2022 9:[address] [facility] Hemoglobin 9.0(L) 12.0 - 15.6 g/dL 06/20/2022 9:[address] [facility] Hematocrit 27.7(L) 35.0 - 45.0 % 06/20/2022 9:[address] [facility] MCV 91.7 80.7 - 98.3 fL 06/20/2022 9:[address] [facility] MCH 29.8 26.7 - 34.0 pg 06/20/2022 9:[address] [facility] MCHC 32.5 30.8 - 35.9 g/dL 06/20/2022 9:[address] [facility] RDW-SD 45.6 36.0 - 50.0 fL 06/20/2022 9:[address] [facility] RDW-CV 13.8 11.2 - 14.8 % 06/20/2022 9:[address] [facility] Platelet Count 449(H) 150 - 400 10? 3 /uL 06/20/2022 9:[address] [facility] MPV 9.0(L) 9.4 - 12.9 fL 06/20/2022 9:[address] [facility] nRBC Absolute 0.00 0 10? 3 /uL 06/20/2022 9:[address] [facility] nRBC Auto 0.0 0 /100 WBC 06/20/2022 9:[address] [facility] Neutrophils % 84.6(H) 35.0 - 70.0 % 06/20/2022 9:[address] [facility] Lymphocytes % 6.7(L) 20.0 - 43.0 % 06/20/2022 9:58 AM [facility] Monocytes % 6.6 5.0 - 13.0 % 06/20/2022 9:58 AM T [facility] Eosinophils % 1.1 0.0 - 6.0 % 06/20/2022 9:58 AM T [facility] Basophil % 0.6 0.0 - 2.0 % 06/20/2022 9:58 AM T [facility] Neutrophils Absolute 9.94(H) 1.60 - 7.00 10? 3 /uL 06/20/2022 9:58 AM T [facility] Lymphocyte Absolute 0.79(L) 1.10 - 3.90 10? 3 /uL 06/20/2022 9:[address] [facility] Monocytes Absolute 0.77 0.26 - 1.07 10? 3 /uL 06/20/2022 9:[address] [facility] Eosinophils Absolute 0.13 0.00 - 0.47 10? 3 /uL 06/20/2022 9:58 AM [facility] Basophils Absolute 0.07 0.00 - 0.08 10? 3 /uL 06/20/2022 9:[address] [facility] Immature Granulocytes % 0.4 0.0 - 1.0 % 06/20/2022 9:[address] [facility] Immature Granulocytes Absolute 0.05 06/20/2022 9:[address] [facility] Blood BLOOD SPECIMEN / Unknown Venipuncture / Unknown 06/20/2022 9:49 AM CDT 06/20/2022 9:54 AM CDT Sima Kaufman PA-C LAB - HEMATOLOGY OR DERABLES [facility] [address] [place] [address], [facility] [phone] * EKG 12-LEAD (06/20/2022 9:40 AM CDT) Ventricular Rate 88 BPM [facility] MUSE Atrial Rate 88 BPM [facility] MUSE P-R Interval 176 ms [facility] MUSE QRS Duration ms 70 ms [facility] MUSE Q-T Interval ms 348 ms [facility]USE QTC Calculation (Bezet) 421 ms [facility]USE Calculated P [place] 75 degrees [facility]USE Calculated R [place] 55 degrees [facility] Calculated T [place] 74 degrees [facility] Interpretation EKG NORMAL SINUS RHYTHM NORMAL ECG WHEN COMPARED WITH ECG OF 15-FEB-2022 00:55, VENT. RATE HAS INCREASED by 15 bpm Confirmed by MARIN KEARNS MD ([id number]) on 06/20/2022 1:46:36 PM [facility] MUSE 06/20/2022 9:40 AM CDT 06/20/2022 1:46 PM CDT Sima Kaufman PA-C ECG ORDERABLES [facility] SE[facility]STIAN documented in this encounter Visit [...] Currently Infusing)[id number] ($ Given - Provider: Damian rAevalo RN) [id number] ($ Given - Provider: Damian [...] swallow. documented in this encounter Care Teams Putty Worker Relationship Specialty Start Date End Date Karrie Phillips MD [facility] [place] [address] PCP - General 03/13/22 documented as of this encounter
--- OUTSIDE RECORDS SUMMARY | 2024-04-11 21:57 | XMS_ITS | Encounter Summary ---
Author Organization [facility] Address [address] [place] [address] Care Team Providers Care Managed Services Sales Consultant Name Role Phone Karrie Phillips MD Primary Care Provider [phone] Encounter Details Date Type Department Care Team (Latest Contact Info) Description 09/04/2022 2:04 PM CDT - 09/04/2022 11:59 PM CDT Hospital Encounter [facility] [address] [facility] [place] [address] Deon Taylor MD [address] [place] [address] Discharge Disposition: Home or Self Care Social [...] and heating? Not hard at all 06/04/2022 [facility] - Occupational Stress [...] evening 06/08/2022 saline nasal spray (Lea; [place]) 0.65 % nasal spray [place] 1 (one) spray into each nostril as needed for Dry Nose 15 mL 02/19/2022 vitamin D3 (Cholecalciferol) 10 MCG (400 UNIT) tablet Take 2 (two) tablets by mouth once daily 06/09/2022 documented as of this encounter Plan of Treatment Upcoming Encounters Date Type Department Care Team (Late st Contact Info) Description 06/02/2024 1:45 PM T[facility]NER Office Visit [facility] - Orth[facility] [address] [place] [address], [facility] [place] [address] Deon Taylor MD [address] [place] [address] documented as of this encounter Procedures Procedure [...] DATE/TIME OF EXAM: ??09/04/2022 2:09 PM, LOCATION ??[facility] INDICATION: Z98.1: S/P cervical spinal fusion ADDITIONAL [...] normal. Report dictated by Jose Kohli MD (radiology orderly). I, Tony Hansen MD have personally reviewed and interpreted this examination/study. > Interpreting Provider: Tony Hansen MD on 09/04/2022 3:15 PM Procedure Note Tony Hansen MD - 09/04/2022 PROCEDURE: XR CERVICAL SPINE 2 OR 3VW, DATE/TIME OF EXAM: 32:09 PM, LOCATION [facility] INDICATION: Z98.1: S/P cervical spinal fusion ADDITIONAL [...] normal. Report dictated by Jose Kohli MD (radiology orderly). I, Tony Hansen MD have personally reviewed and interpreted this examination/study. > Interpreting Provider: Tony Hansen MD on 09/04/2022 3:15PM Deon Taylor MD DIAGNOSTIC IMAGING O RDERABLES documented in this encounter Visit Diagnoses Diagnosis S/P cervical spinal fusion Arthrodesis status documented in this encounter Care Teams Managed Services Sales Consultant Relationship Specialty Start Date End Date Karrie Phillips MD [address] [place] [address] PCP - General 03/13/22 documented as of this encounter
--- OUTSIDE RECORDS SUMMARY | 2024-04-11 21:57 | XMS_ITS | Encounter Summary ---
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 Pt states she was encouraged to come here from her clinic appointment today d/t dark red emesis. Pt states she is having increased dizziness with movement and nausea. Pt states she is chilling. * Auth/Cert (Routine) Specialty Diagnoses / Procedures Referred By Everardo fried Referred To Contact Referral ID Status Reason Start Date Expiration Date Visits Re quested Visits Authorized [id number] 1 1 Encounter Details Date Type Department Care Team (Latest Contact Info) Description 06/20/2022 1:47 PM CDT - 06/23/2022 4:53 PM CDT Hospital Encounter [facility] ACUTE [address] [place] [phone] Adolph Mckinney MD [address] [place] [address] Eduar Mathis MD [address] [phone] [place] [address] [place] [address] Internal Medicine Discharge Disposition: Home Health Care [facility] Social History Tobacco Use Types Packs/Day Years [...] heating? Not hard at all 06/04/2022 [facility] Occupat ional Health - Occupational Stress [...] place to sleep or slept in a assisted (including now)? No 06/04/2022 Sex and Gender [...] Hospital Discharge Summary Patient ID: Kandace Cole [id number] 72 year old 1950 Admit date: 06/20/2022 [...] Esophagus, chronic hyponatremia, MDD that presented to [facility] on 06/20 from her follow up appointment with her spine surgeon for staple removal with rapid onset of 1 day of 10-20 episodes of vomiting and noted some coffee ground emesis at home. No prior previous reported episodes. On arrival to [facility], she was slightly hypertensive, remaining VSS. [...] spine. Report dictated by Yasir Pierre MD (radiology physician assistant). Kamila Narvaez MD have personally reviewed and [...] etiology. > Dictated by Sherlyn Hopkins DO (radiology physician assistant). IChaim have personally reviewed and interpreted this [...] 0.65 % nasal spray Commonly known as: [place]; Baby [place] 1 (one) spray into each nostril as needed for Dry Nose vitamin D3 10 MCG (400 UNIT) tablet Commonly known as: Cholecalciferol Take 2 (two) tablets by mouth once daily Where to Get Your Medications These medications were sent to [id number] - [address] [facility] [address] [facility] [address] [facility] [address] ?? ondansetron (disintegrating) 4 MG tablet Follow-up Information Karrie Phillips MD . Specialty: Family Medicine Contact information: [address] [place] [address] [facility] [address] Follow up with provider . [...] provider. If you need to call [facility] for any reason, you may reach us at [phone] and dial [phone] for the redrying machine operator. If you have any questions about your medications, please be sure to ask the pharmacy when you fruit or nut picker your prescription. You may also call [...] reschedule the appointment. Thanks! Internal Medicine Department [place] [address] [place] [address] Signed: Anabell Hernandez PA-C 06/23/2022 Time spent [...] provider. If you need to call [facility] for any reason, you may reach us at [phone] and dial 0 for the redrying machine operator. If you have any questions about your medications, please be sure to ask the pharmacy when you fruit or nut picker your prescription. You may also call [...] reschedule the appointment. Thanks! Internal Medicine Department [address] [address] documented in this encounter Medications at Time [...] mouth every evening 06/08/2022 saline nasal spray ([place]; Baby [place]) 0.65 % nasal spray [place] 1 (one) spray into each nostril as [...] Arciniega OT - 06/22/2022 3:35 PM CDT [facility] Department of Physical Medicine & Rehabilitation Progress Note Patient: Kandace Cole [facility] Record Number: [id number] Date of : 1950 Age: [age] year old Per PT, the patient is independent with ADLs and functional mobility, no skilled OT indicated. D/C OT. * Ange Whitman, PT - 06/22/2022 2:[address] [facility] Physical Medicine and Rehabilitation Physical Therapy Initial Evaluation Note Patient: Kandace Cole [facility] Record Number: [id number] Date of : 1950 Age: [age] year [...] as Tolerated Spine Precautions: Yes Spine Precautions: [place] DIAGNOSIS: Patient Active Problem List: Degeneration of cervical intervertebral disc Syncope and collapse Trauma Injury of head, initial encounter Fall, initial encounter Multiple closed fractures of facial bone, initial encounter (CMS/HCC) Abdominal pain Abnormal serum creatinine level Anemia Heredia's esophagus Cardiomegaly Chronic kidney disease Chronic obstructive pulmonary disease (CMS/[facility]) Chronic depression Dyspnea on exertion Benign essential hypertension Glaucoma Hyperkalemia Hyposmolality Hyperthyroidism Hypothyroidism Intractable chronic migraine without aura Iron deficiency anemia Leukocytosis Macular degeneration Migraine Ulnar neuropathy Type 2 diabetes mellitus (CMS/[facility]) Type 2 diabetes mellitus with stage 3 [...] to have w/c after neck surgery. riaz.) Truckload Owner Operator issued to pt. Pt has bed rails. [...] activity this date. Bed Mobility: Rolling: Modified Globe Supine to Sit: Modified Globe with HOB in semi-fowlers position Sit to Supine: Modified Globe Pt has bed wedge at home to elevate head. Transfers: Sit to Stand: Complete Globe Stand to Sit: Complete Globe Bed to Chair: Complete Globe Type of Transfer: Stand Pivot Transfer Transfer Device: Gait belt;Walker-2 Wheeled Gait: Weight Bearing Status: (WBAT x4 in aspen collar) Distance Ambulated: 125 FEET Ambulation: Assistive Device: Gait Belt;Walker-2 Wheeled Ambulation: Level of Assistance: Modified Globe Ambulation: Gait Deviations: (normal) Balance: Balance Scales/Tests [...] neck surgery. Equipment Issued: gait belt and forger helper Plan: Plan: Discontinue IP PT If patient [...] spine. Report dictated by Yasir Pierre MD (radiology physician assistant). Kamila Narvaez MD have personally reviewed and [...] etiology. > Dictated by Sherlyn Hopkins DO (radiology physician assistant). Chaim Narvaez have personally reviewed and interpreted [...] year old female with a history of Heredai's esophagus, iron deficiency anemia, HTN, T2DM, CKD, [...] questions/concerns. Naif Tenorio MD Internal Medicine, PGY-1 [facility] Associated attestation - Ike Mcpherson MD - 06/22/2022 10:15 AM CDT I have personally seen and examined this patient. I agree with the manager housekeeping's findings, assessment and plan as outlined. In [...] Hemoglobin at baseline, Na 128 with mild JEA. Underwent EGD and capsule endoscopy 06/21/22 with [...] spine. Report dictated by Yasir Pierre MD (radiology physician assistant). Kamila Narvaez MD have personally reviewed and [...] etiology. > Dictated by Sherlyn Hopkins DO (radiology physician assistant). 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 Home when medically clear. Lives with: Other (Comment) (Grandson) Physical Limitations: None Requires Assistance With: None Preferred Pharmacy: [facility] [address] [place] [address] READMISSION RISK SCORE is 20* at 4:42 PM 06/21/2022. Pt LYNNETTE in procedure, chart reviewed. Family Support (name and phone): Extended Emergency Contact Information Primary Emergency Contact: BARBARA CISNEROS Mobile Relation: Brother Secondary Emergency Contact: Barbara Cisneros Address: [place], [place] Relation: Other Patient or business office representative requests care coordination reach out to family or caregiver listed above regarding discharge planning and at time of discharge? No Equipment at Home: Chair-Shower;Grab Bars;Cane-Small Base Quad;Walker-2 Wheeled;Walker-4 Wheeled with Seat Javascript Web Developer Referral: No Will continue to follow. For any questions or needs please contact: Cut To Length Operator Name/Phone number: Krystle Guerrero RN [phone] * Ori Iyer PA-C - 06/21/2022 10:19 AM CDT It is fine to remove C collar for patient's EGD. This was approved by Orthopedics (per GI). Ori Iyer PA-C * Ori Iyer PA-C - 06/21/2022 8:53 AM CDT Hospitalist Daily Progress Note Name: Kandace Cole Age: [age] year old Room: [facility]/ Date Admitted: 06/20/2022 Total duration [...] spine. Report dictated by Yasir Pierre MD (radiology physician assistant). IKamila MD have personally reviewed and interpreted [...] etiology. > Dictated by Sherlyn Hopkins DO (radiology physician assistant). Chaim Narvaez have personally reviewed and interpreted [...] continue amlodipine 5 mg daily (started at [facility]) T2DM Hypoglycemia likely 2/2 NPO vs [...] Feel free to text page me through playnik Date of service: 06/21/2022 Attending Physician: Abeba Will DO * Leobardo Chisholm RN - 06/21/2022 12:24 AM CDT RN called [facility] for infusion channel. * Leobardo Chisholm RN - 06/20/2022 11:21 PM CDT RN called [employer] for SCD pump and Alaris brain w/ channel. * Leobardo Chisholm RN - 06/20/2022 11:00 PM CDT [facility] and [facility] Brain to bedside. [facility] did not have channel. [facility] stated she would be back [...] 72 year old, female : 1950 CSN: [id number] Primary Care Physician: Karrie Phillips MD, MD [...] results for input(s): PTT in the last 01170 hours. Cultures No results found for this or any previous visit (from the past 248 hour(s)). Physical Exam General: Awake, alert, follows commands, ill appearing Neck: - C-collar/[place] J: Present - Dressing: clean and dry [...] closed fractures of facial bone, initial encounter ([facility]) Abdominal pain Abnormal serum creatinine level Anemia Heredia's esophagus Cardiomegaly Chronic kidney disease Chronic obstructive pulmonary disease ([facility]) Chronic depression Dyspnea on exertion Benign essential hypertension Glaucoma Hyperkalemia Hyposmolality Hyperthyroidism Hypothyroidism Intractable chronic migraine without aura Iron deficiency anemia Leukocytosis Macular degeneration Migraine Ulnar neuropathy Type 2 diabetes mellitus ([facility]) Type 2 diabetes mellitus with stage 3 chronic kidney disease, without long-term current use of insulin ([facility]) Temporomandibular joint disorder Systemic sclerosis ([facility]) Sprain of ankle Sciatica Recurrent major depression in remission ([facility]) Raynaud's disease Primary fibromyalgia syndrome Polyp of colon Perineal pain Paronychia of toe of right foot Onychomycosis of toenail Nonexudative 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 Nausea Multiple bruises Mixed hyperlipidemia Mixed collagen vascular disease ([facility]) Shortness of breath Abdominal pain, left upper [...] 06/08/22 Tammi Perez MD saline nasal spray ([place]; Baby [place]) 0.65 % nasal spray [place] 1 (one) spray into each nostril as [...] spine. Report dictated by Yasir Pierre MD (radiology physician assistant). I, Kamila Barber MD have personally reviewed [...] most recent endoscopic evaluation was 12/2022 in [place]. States at that time there was continued [...] disease, without long-term current use of insulin ([facility]/HCC) Temporomandibular joint disorder Systemic sclerosis (CMS/HCC) Sprain [...] mouth every evening ??? saline nasal spray ([place]; Baby [place]) 0.65 % nasal spray [place] 1 (one) spray into each nostril as [...] spine. Report dictated by Yasir Pierre MD (radiology physician assistant). Kamila Narvaez MD have personally reviewed and [...] etiology. > Dictated by Sherlyn Hopkins DO (radiology physician assistant). IChaim have personally reviewed and interpreted this examination/study. > Interpreting Provider: Chiam Martins on 06/20/2022 10:47 PM Procedures: Prior endoscopies notable for remote EGD hx of Heredia's esophagus in 2019. States most recent endoscopic evaluation was 12/2022 in [place]. States at that time there was continued [...] Symptoms and history sounds most consistent w/ sandor garner tear, however personal history is concerning [...] 162, trans % sat 10, TIBC 203, [id number], folate 9.4, B12 382. No s/s of [...] AM cortisol to evaluate adrenal function, no vermin exterminator steroid use per history.TSH from 02/16/2022 wnl. [...] questions. Naif Tenorio MD Internal Medicine, PGY-1 [facility] Associated attestation - Ike Mcpherson MD - 06/21/2022 11:56 AM CDT I have personally seen and examined this patient. I agree with the manager housekeeping's findings, assessment and plan as outlined. In [...] - 06/20/2022 2:45 PM CDT Kandace Cole [id number] [facility] History Chief Complaint Patient presents [...] mouth every evening ??? saline nasal spray ([place]; Baby [place]) 0.65 % nasal spray [place] 1 (one) spray into each nostril as [...] recent spinal surgery vs volume depleted vs [place] - pantoprazole 40mg given - ondansetron 4mg [...] and medical decision making; and I had [id number] time with this patient. I have conducted [...] pain. VSS. DDx: GI bleed, gastritis, gastroenteritis, [place], cardiac arrhythmia, electrolyte derangement; less concern for [...] DATE/TIME OF EXAM: 06/20/2022 3:13 PM, LOCATION [facility] INDICATION: R42: Dizziness R06.02: Shortness of [...] spine. Report dictated by Yasir Pierre MD (radiology physician assistant). I, Kamila Barber MD have personally reviewed and interpreted this examination/study. > Interpreting Provider: Kamila Barber MD on 06/20/2022 4:25 PM XR CHEST 2VW Final Result PROCEDURE: XR CHEST 2VW, DATE/TIME OF EXAM: 06/20/2022 3:03 PM, LOCATION [facility] INDICATION: R06.02: Shortness of breath ADDITIONAL [...] heads. Report dictated by Yasir Pierre MD (radiology physician assistant). I, Haroldo Ball MD have personally reviewed [...] mg (40 mg Intravenous $ Given 06/20/22 8000) Procedures None ED COURSE Patient seen and [...] and medical decision making; and I had [id number] time with this patient. I have conducted [...] mouth every evening ??? saline nasal spray ([place]; Baby [place]) 0.65 % nasal spray [place] 1 (one) spray into each nostril as [...] st Contact Info) Description 06/02/2024 1:45 PM SOFTWARE QUALITY ASSURANCE SPECIALIST Office Visit [facility] Orthopedics [address] [place] [address], [facility] [place] [phone] Deon Taylor MD [address] [place] [address] Scheduled Orders Name Type Priority Associated Diagnoses [...] 06/21/2022 4:40 PM CDT Coffee ground emesis [facility] ESOPHAGEAL CAPSULE ENDOSCOPY 06/21/2022 4:37 PM CDT Coffee ground emesis [place] ED EGD FLEX TRANSORAL DX 06/21/2022 4:37 [...] 10.5 10? 3 /uL 06/23/2022 4:17 [address] [facility] RBC 2.66(L) 3.80 - 5.20 10? 6 /uL 06/23/2022 4:17 AM [facility] Hemoglobin 8.0(L) 12.0 - 15.6 g/dL 06/23/2022 4:17 AM [facility] Hematocrit 24.2(L) 35.0 - 45.0 % 06/23/2022 4:17 AM [facility] MCV 91.0 80.7 - 98.3 fL 06/23/2022 4:17 AM [facility] MCH 30.1 26.7 - 34.0 pg 06/23/2022 4:17 AM [facility] MCHC 33.1 30.8 - 35.9 g/dL 06/23/2022 4:17 AM [facility] RDW-SD 45.0 36.0 - 50.0 fL 06/23/2022 4:17 AM [facility] RDW-CV 13.7 11.2 - 14.8 % 06/23/2022 4:17 AM [facility] Platelet Count 305 150 - 400 10? 3 /uL 06/23/2022 4:17 AM [facility] MPV 9.7 9.4 - 12.9 fL 06/23/2022 4:17 AM [facility] nRBC Absolute 0.00 0 10? 3 /uL 06/23/2022 4:17 AM [facility] nRBC Auto 0.0 0 /100 WBC 06/23/2022 4:17 AM [facility] Blood BLOOD SPECIMEN / Unknown Lab Venipuncture / Unknown 06/23/2022 3:47 AM CDT 06/23/2022 4:10 AM CDT Ori Iyer PA-C LAB - HEMATOLOGY OR DERABLES Performing Organization Address [facility]/ZIP Co de Phone Number [address] [address], [facility] [phone] * MAGNESIUM BLOOD (06/23/2022 3:06 AM CDT) Magnesium 2.3 1.6 - 2.6 mg/dL 06/23/2022 4:41 AM T [facility] Blood BLOOD SPECIMEN / Unknown Lab Venipuncture / Unknown 06/23/2022 3:06 AM CDT 06/23/2022 4:03 AM CDT Anabell Hernandez PA-C LAB - CHEMISTRY ORD ERABLES Performing Organization Address City/[facility]/ZIP Co de Phone Number [address] [address], [facility] [phone] * (ABNORMAL) BASIC METABOLIC PANEL (CALCIUM TOTAL) (06/23/2022 3:06 AM CDT) BUN 10 7 - 26 mg/dL 06/23/2022 4:38 AM [facility] Creatinine 1.09(H) 0.56 - 0.96 mg/dL 06/23/2022 4:38 AM [facility] Sodium 131(L) 136 - 145 mmol/L 06/23/2022 4:38 AM [facility] Potassium 4.2 3.5 - 4.5 mmol/L 06/23/2022 4:38 AM [facility] Chloride 100 98 - 107 mmol/L 06/23/2022 4:38 AM [facility] CO2 22 22 - 29 mmol/L 06/23/2022 4:38 AM [facility] Glucose 111 70 - 115 mg/dL 06/23/2022 4:38 AM [facility] Calcium 8.2(L) 8.4 - 10.2 mg/dL 06/23/2022 4:38 AM CDT [facility] Anion Gap 13 8 - 18 06/23/2022 4:38 AM T [facility] BUN/Creatinine Ratio 9 7 - 23 06/23/2022 4:38 AM T [facility] Osmolality Calculated 272 270 - 300 mOsm/kg 06/23/2022 4:38 AM T [facility] eGFR by CKD-EPI 54(L) >=90 mL/min/1.7 3 m2 06/23/2022 4:38 AM CDT [facility] Blood BLOOD SPECIMEN / Unknown Lab Venipuncture / Unknown 06/23/2022 3:06 AM CDT 06/23/2022 4:03 AM CDT Anabell Hernandez PA-C LAB - CHEMISTRY ORD ERABLES Performing Organization Address City/[facility]/ZIP Co de Phone Number [address] [address], [facility] [phone] * GLUCOSE - POINT OF CARE (06/22/2022 4:11 PM CDT) Glucose WB/POC 105 70 - 115 mg/dL 06/22/2022 4:12 PM CDT [facility] Specimen Type Arterial 06/22/2022 4:12 PM CDT [facility] Blood BLOOD SPECIMEN / Unknown 06/22/2022 4:11 PM CDT 06/22/2022 4:12 PM CDT Abeba Will DO LAB - POINT OF CARE ORDERABLES [address] [address], [place] [phone] * (ABNORMAL) GLUCOSE - POINT OF CARE (06/22/2022 11:18 AM CDT) Glucose WB/POC 180(H) 70 - 115 mg/dL 06/22/2022 11:19 AM T [facility] Specimen Type Cap Fingerstick 2022 11:19 AM CDT [facility] Blood BLOOD SPECIMEN / Unknown 06/22/2022 11:18 AM CDT 06/22/2022 11:19 AM CDT Abeba Will DO LAB - POINT OF CARE ORDERABLES [facility] [address] [place] [address], [facility] [phone] * (ABNORMAL) CBC W/O DIFFERENTIAL (06/22/2022 2:34 AM CDT) WBC 9.1 3.5 - 10.5 10? 3 /uL 06/22/2022 3:11 AM [facility] RBC 2.70(L) 3.80 - 5.20 10? 6 /uL 06/22/2022 3:11 AM [facility] Hemoglobin 8.0(L) 12.0 - 15.6 g/dL 06/22/2022 3:11 AM [facility] Hematocrit 24.2(L) 35.0 - 45.0 % 06/22/2022 3:11 AM [facility] MCV 89.6 80.7 - 98.3 fL 06/22/2022 3:11 AM [facility] MCH 29.6 26.7 - 34.0 pg 06/22/2022 3:11 AM [facility] MCHC 33.1 30.8 - 35.9 g/dL 06/22/2022 3:11 AM [facility] RDW-SD 44.2 36.0 - 50.0 fL 06/22/2022 3:11 AM [facility] RDW-CV 13.5 11.2 - 14.8 % 06/22/2022 3:11 AM [facility] Platelet Count 358 150 - 400 10? 3 /uL 06/22/2022 3:11 AM [facility] MPV 9.2(L) 9.4 - 12.9 fL 06/22/2022 3:11 AM [facility] nRBC Absolute 0.00 0 10? 3 /uL 06/22/2022 3:11 AM [facility] nRBC Auto 0.0 0 /100 WBC 06/22/2022 3:11 AM CDT [facility] Blood BLOOD SPECIMEN / Unknown Lab Venipuncture / Unknown 06/22/2022 2:34 AM CDT 06/22/2022 3:01 AM CDT Ori Iyer PA-C LAB - HEMATOLOGY OR DERABLES Performing Organization Address City/[facility]/ZIP Co de Phone Number [address] [address], [facility] [phone] * (ABNORMAL) MAGNESIUM BLOOD (06/22/2022 2:34 AM CDT) Magnesium 1.5(L) 1.6 - 2.6 mg/dL 06/22/2022 3:29 AM T [facility] Blood BLOOD SPECIMEN / Unknown Lab Venipuncture / Unknown 06/22/2022 2:34 AM CDT 06/22/2022 3:02 AM CDT Ori Iyer PA-C LAB - CHEMISTRY ORD ERABLES Performing Organization Address City/[facility]/ZIP Co de Phone Number [address] [address], [facility] [phone] * (ABNORMAL) RENAL FUNCTION PANEL (06/22/2022 2:34 AM CDT) BUN 13 7 - 26 mg/dL 06/22/2022 3:29 AM T [facility] Creatinine 1.07(H) 0.56 - 0.96 mg/dL 06/22/2022 3:29 AM [facility] Sodium 132(L) 136 - 145 mmol/L 06/22/2022 3:29 AM T [facility] Potassium 3.8 3.5 - 4.5 mmol/L 06/22/2022 3:29 AM [facility] Chloride 99 98 - 107 mmol/L 06/22/2022 3:29 AM T [facility] CO2 25 22 - 29 mmol/L 06/22/2022 3:29 AM [facility] Glucose 126(H) 70 - 115 mg/dL 06/22/2022 3:29 AM [facility] Albumin 2.8(L) 3.4 - 5.0 g/dL 06/22/2022 3:29 AM [facility] Calcium 8.5 8.4 - 10.2 mg/dL 06/22/2022 3:29 AM [facility] Phosphorus 2.8(L) 2.9 - 5.1 mg/dL 06/22/2022 3:29 AM [facility] Anion Gap 12 8 - 18 06/22/2022 3:29 AM [facility] BUN/Creatinine Ratio 12 7 - 06/22/2022 3:29 AM [facility] Osmolality Calculated 276 270 - 300 mOsm/kg 06/22/2022 3:29 AM [facility] eGFR by CKD-EPI 55(L) >=90 mL/min/1.7 3 m2 06/22/2022 3:29 AM [facility] Blood BLOOD SPECIMEN / Unknown Lab Venipuncture / Unknown 06/22/2022 2:34 AM CDT 06/22/2022 3:02 AM CDT Ori Iyer PA-C LAB - CHEMISTRY ORD ERABLES [facility] [address] [place] [address], [facility] [phone] * CORTISOL BLOOD AM (06/22/2022 2:34 AM CDT) Cortisol AM 14.3 3.7 - 19.4 ug/dL 06/22/2022 3:49 AM T [facility] Blood BLOOD SPECIMEN / Unknown Lab Venipuncture / Unknown 06/22/2022 2:34 AM CDT 06/22/2022 3:02 AM CDT Narrative [facility] - 06/22/2022 3:49 AM CDT Normal cortisol levels are generally highest in the morning hours and lowest from late evening through the real estate loan officer 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 ??The PM measurements of cortisol run approximately one-half to one-third of the AM values. Ori Iyer PA-C LAB - CHEMISTRY ORD ERABLES Performing Organization Address [facility] Co de Phone Number [facility] [address] [place] [address], [place] [phone] * GLUCOSE - POINT OF CARE (06/21/2022 5:10 PM CDT) Glucose WB/POC 103 70 - 115 mg/dL 06/21/2022 5:14 PM CDT [facility] Specimen Type Cap Fingerstick 2022 5:14 PM CDT [facility] Blood BLOOD SPECIMEN / Unknown 06/21/2022 5:10 PM CDT 06/21/2022 5:14 PM CDT Abeba Will DO LAB - POINT OF CARE ORDERABLES Performing Organization Address [facility] Center/[facility] Co de Phone Number [facility] [address] [place] [address], [place] [phone] * PATHOLOGY TISSUE (06/21/2022 4:40 PM CDT) Pathologist [facility] Case Report Surgical Pathology Report ? Case: [id number] ? Authorizing Provider: ??Carmen Morales MD ? Collected: ? 06/21/2022 04:40 PM ? Ordering Location: ? [facility] ?Received: ?06/22/2022 08:59 AM ? Pathologist: ? Hansa Gusman MD ? Specimen: ?Small Bowel, small bowel biopsy r/o celiac ? 06/25/2022 2:27 PM [facility] Final Diagnosis Small intestine, small bowel, biopsy (A): - No histopathologic abnormality - Intact villous and crypt architecture without increased intraepithelial lymphocytes 06/25/2022 2:27 PM [facility] Microscopic Description and Comment Microscopic examination substantiates the final diagnosis. 06/25/2022 2:27 PM [facility] Clinical History The patient is a 72-year-old woman presented with coffee-ground emesis who underwent upper GI endoscopy. 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 Duodenal bulb erythema, biopsied for evaluation of celiac disease. 06/25/2022 2:27 PM [facility] Gross Description The requisition and specimen(s) are identified with the patient's name Kandace Cole. Received in formalin, specimen A , are 5 pink-freeman tissues, 0.3-0.9 cm in greatest dimension and 2.3 x 0.3 x 0.2 cm in aggregate, submitted in toto in cassette A1. DF 06/25/2022 2:27 PM [facility] Disclaimer The performance characteristics of all immunohistochemical and indirect immunofluorescence stains (if any) cited in this report were determined by the Histopathology Laboratory of [facility]. Some of these tests were developed by [...] attending (teaching) pathologist. 06/25/2022 2:27 PM CDT [facility] Embedded Images 06/25/2022 2:27 PM CDT [facility] Resection without Tumor SMALL BOWEL RESECTION SPECIMEN / Unknown 06/21/2022 4:40 PM CDT 06/22/2022 8:59 AM CDT Comment:Pre-op diagnosis: Coffee ground emesis Carmen Morales MD LAB - PATHOLOGY/CYTO LOGY ORDERABLES [facility] [address] [facility] [place] [address], [facility] [phone] * EGD (06/21/2022 4:24 PM CDT) Report [...] Procedure Code(s): ? --- Professional --- ? 66843, Esophagogastroduode noscopy, flexible, transoral; with biopsy, ? single or multiple Diagnosis Code(s): ?--- Professional --- ?K22.70, Heredia's esophagus without dysplasia ?K92.0, Hematemesis CPT copyright 2019 [employer]. All rights reserved. The codes documented in this report are preliminary and upon certified medical records coder review may be revised to meet current compliance requirements. Carmen Morales, 06/21/2022 5:01:11 PM Note Initiated On: 06/21/2022 4:24 PM Number of Addenda: 0 ? [facility] ? [address] [place] [address] [facility] 06/21/2022 4:24 PM CDT Abeba Will DO GI PROCEDURE ORDERAB LES Performing Organization Address City/[facility]/ZIP Co de Phone Number [facility] * CARDIAC EKG ORDER (06/21/2022 3:29 PM CDT) Narrative 06/21/2022 3:29 PM CDT Ordered by an unspecified provider. Scanned Document CARDIAC SERVICES ORD ERABLES * (ABNORMAL) GLUCOSE - POINT OF CARE (06/21/2022 2:59 PM CDT) Glucose WB/POC 143(H) 70 - 115 mg/dL 06/21/2022 3:04 PM CDT [facility] Specimen Type Cap Fingerstick 2022 3:04 PM CDT [facility] Blood BLOOD SPECIMEN / Unknown 06/21/2022 2:59 PM CDT 06/21/2022 3:04 PM CDT Abeba Will DO LAB - POINT OF CARE ORDERABLES Performing Organization Address [facility]/ZIP Co de Phone Number [facility] [address] [place] [phone], [place] [phone] * (ABNORMAL) GLUCOSE - POINT OF CARE (06/21/2022 2:00 PM CDT) Glucose WB/POC 47(LL) 70 - 115 mg/dL 06/21[facility]2022 [facility] Spec[facility] Type Cap Fingerstick 2022 2:[address] [facility] Blood BLOOD SPECIMEN / Unknown 06/21/2022 2:00 PM CDT 06/21/2022 2:04 PM CDT Abeba Will DO LAB - POINT OF CARE ORDERABLES [facility] [address] [place] [address], [facility] [phone] * (ABNORMAL) CBC W AUTO DIFFERENTIAL (06/21/2022 2:03 AM CDT) WBC 8.0 3.5 - 10.5 10? 3 /uL 06/21/2022 2:59 AM [facility] RBC 2.77(L) 3.80 - 5.20 10? 6 /uL 06/21/2022 2:59 AM [facility] Hemoglobin 8.3(L) 12.0 - 15.6 g/dL 06/21/2022 2:59 AM [facility] Hematocrit 25.9(L) 35.0 - 45.0 % 06/21/2022 2:59 AM [facility] MCV 93.5 80.7 - 98.3 fL 06/21/2022 2:59 AM [facility] MCH 30.0 26.7 - 34.0 pg 06/21/2022 2:59 AM [facility] MCHC 32.0 30.8 - 35.9 g/dL 06/21/2022 2:59 AM [facility] RDW-SD 46.8 36.0 - 50.0 fL 06/21/2022 2:59 AM [facility] RDW-CV 13.8 11.2 - 14.8 % 06/21/2022 2:59 AM [facility] Platelet Count 415(H) 150 - 400 10? 3 /uL 06/21/2022 2:59 AM [facility] MPV 9.6 9.4 - 12.9 fL 06/21/2022 2:59 AM [facility] nRBC Absolute 0.00 0 10? 3 /uL 06/21/2022 2:59 AM [facility] nRBC Auto 0.0 0 /100 WBC 06/21/2022 2:59 AM [facility] Neutrophils % 68.7 35.0 - 70.0 % 06/21/2022 2:59 AM [facility] Lymphocytes % 17.2(L) 20.0 - 43.0 % 06/21/2022 2:59 AM [facility] Monocytes % 10.7 5.0 - 13.0 % 06/21/2022 2:59 AM [facility] Eosinophils % 2.3 0.0 - 6.0 % 06/21/2022 2:59 AM [facility] Basophil % 0.6 0.0 - 2.0 % 06/21/2022 2:59 AM [facility] Neutrophils Absolute 5.47 1.60 - 7.00 10? 3 /uL 06/21/2022 2:59 AM [facility] Lymphocyte Absolute 1.37 1.10 - 3.90 10? 3 /uL 06/21/2022 2:59 AM [facility] Monocytes Absolute 0.85 0.26 - 1.07 10? 3 /uL 06/21/2022 2:59 AM [facility] Eosinophils Absolute 0.18 0.00 - 0.47 10? 3 /uL 06/21/2022 2:59 AM [facility] Basophils Absolute 0.05 0.00 - 0.08 10? 3 /uL 06/21/2022 2:59 AM [facility] Immature Granulocytes % 0.5 0.0 - 1.0 % 06/21/2022 2:59 AM [facility] Immature Granulocytes Absolute 0.04 06/21/2022 2:59 AM [facility] Blood BLOOD SPECIMEN / Unknown Lab Venipuncture / Unknown 06/21/2022 2:03 AM CDT 06/21/2022 2:39 AM CDT Deepa Georges MD LAB - HEMATOLOGY ORD ERABLES Performing Organization Address City/State/[facility] Co de Phone Number [address] [address], [facility] [phone] * (ABNORMAL) COMPREHENSIVE METABOLIC PANEL (06/21/2022 2:03 AM [facility]) BUN 14 7 - 26 mg/dL 06/21/2022 3:05 AM [facility] Creatinine 1.11(H) 0.56 - 0.96 mg/dL 06/21/2022 3:05 AM [facility] Sodium 134(L) 136 - 145 mmol/L 06/21/2022 3:05 AM [facility] Potassium 4.2 3.5 - 4.5 mmol/L 06/21/2022 3:05 AM [facility] Chloride 96(L) 98 - 107 mmol/L 06/21/2022 3:05 AM [facility] CO2 25 22 - 29 mmol/L 06/21/2022 3:05 AM [facility] Glucose 54(L) 70 - 115 mg/dL 06/21/2022 3:05 AM [facility] Calcium 9.5 8.4 - 10.2 mg/dL 06/21/2022 3:05 AM [facility] Protein Total 6.0 6.0 - 8.3 g/dL 06/21/2022 3:05 AM [facility] Albumin 3.3(L) 3.4 - 5.0 g/dL 06/21/2022 3:05 AM [facility] Bilirubin Total 0.7 0.2 - 1.2 mg/dL 06/21/2022 3:05 AM [facility] Alkaline Phosphatase 62 40 - 150 U/L 06/21/2022 3:05 AM [facility] ALT 10 5 - 55 U/L 06/21/2022 3:05 AM [facility] AST 15 5 - 34 U/L 06/21/2022 3:05 AM [facility] Anion Gap 17 8 - 18 06/21/2022 3:05 AM [facility] BUN/Creatinine Ratio 13 7 - 23 06/21/2022 3:05 AM [facility] Osmolality Calculated 276 270 - 300 mOsm/kg 06/21/2022 3:05 AM [facility] Albumin/Globulin Ratio 1.2 1.1 - 2.3 06/21/2022 3:05 AM [facility] eGFR by CKD-EPI 53(L) >=90 mL/min/1.7 3 m2 06/21/2022 3:05 AM [facility] Blood BLOOD SPECIMEN / Unknown Lab Venipuncture / Unknown 06/21/2022 2:03 AM CDT 06/21/2022 2:39 AM T Deepa Georges MD LAB - CHEMISTRY CHELO QUIGLEY [facility] [address] [place] [phone], [facility] [phone] * (ABNORMAL) URINALYSIS REFLEX TO MICROSCOPIC NO CULTURE (06/21/2022 12:50 AM T) Color UA Yellow Straw, Yellow 06/21/2022 1:04 AM [facility] Clarity UA Clear Clear 06/21/2022 1:04 AM [facility] Specific Reeves UA 1.048(H) 1.005 - 1.030 06/21/2022 1:04 AM [facility] pH UA 7.0 5.0 - 8.0 pH 06/21/2022 1:04 AM [facility] Protein UA Negative Negative 06/21/2022 1:04 AM [facility] Glucose UA Negative Negative 06/21/2022 1:04 AM [facility] Ketone UA 1+(A) Negative 06/21/2022 1:04 AM [facility] Bilirubin UA Negative Negative 06/21/2022 1:04 AM [facility] Blood UA Negative Negative 06/21/2022 1:04 AM [facility] Nitrite UA Negative Negative 06/21/2022 1:04 AM [facility] Leukocyte Esterase Trace(A) Negative 06/21/2022 1:04 AM [facility] Urobilinogen UA Negative Negative mg/dL 06/21/2022 1:04 AM [facility] RBC UA 0-2 None Seen, 0-2, 3-5 /HPF 06/21/2022 1:04 AM CDT [facility] WBC UA 0-5 None Seen, 0-5 /HPF 06/21/2022 1:04 AM CDT [facility] Squamous Epithelial Cells UA 0-2 None Seen, 0-2, 3-5 /HPF 06/21/2022 1:04 AM CDT [facility] Urine URINE SPECIMEN OBTAINED BY CLEAN CATCH PROCEDURE / Unknown Collection / Unknown 06/21/2022 12:50 AM CDT 06/21/2022 12:57 AM CDT Narrative [facility] - 06/21/2022 1:04 AM CDT Sima Kaufman PA-C LAB - URINALYSIS OR DERABLES Performing Organization Address City/[facility]/ZIP Co de Phone Number [address] [address], [place] [phone] * (ABNORMAL) HEMOGLOBIN (06/20/2022 10:18 PM CDT) Hemoglobin 8.5(L) 12.0 - 15.6 g/dL 06/20/2022 10:42 PM CDT [facility] Blood BLOOD SPECIMEN / Unknown Lab Venipuncture / Unknown 06/20/2022 10:18 PM CDT 06/20/2022 10:39 PM CDT Deepa Georges MD LAB - HEMATOLOGY ORD ERABLES Performing Organization Address City/[facility]/ZIP Co de Phone Number [address] [address], [place] [phone] * B-TYPE NATRIURETIC PEPTIDE (06/20/2022 10:18 PM CDT) BNP 99 <100 pg/mL 06/20/2022 11:17 PM CDT [facility] Comment: A decision threshold of 100 [...] CHEMISTRY CHELO QUIGLEY Performing Organization Address [facility]/State/[facility] Co de Phone Number [id number] [place] [address], [place] [phone] * CT ANGIO ABDOMEN PELVIS (06/20/2022 5:05 [...] etiology. > Dictated by Sherlyn Hopkins DO (radiology physician assistant). I, Chaim Martins have personally reviewed and interpreted this examination/study. > Interpreting Provider: Chaim Martins on 06/20/2022 10:47 PM Narrative 06/20/2022 10:47 PM CDT PROCEDURE: ??CT ANGIO ABDOMEN PELVIS, DATE/TIME OF EXAM: ??06/20/2022 5:05 PM, LOCATION ??[facility] INDICATION: R10.12: Abdominal pain, left upper [...] PELVIS, DATE/TIME OF EXAM: 06/20/2022 5:05PM, LOCATION [facility] INDICATION: R10.12: Abdominal pain, left upper [...] etiology. > Dictated by Sherlyn Hopkins DO (radiology physician assistant). IChaim have personally reviewed and interpreted this [...] spine. Report dictated by Yasir Pierre MD (radiology physician assistant). Kamila Narvaez MD have personally reviewed and interpreted this examination/study. > Interpreting Provider: Kamila Barber MD on 06/20/2022 4:25 PM Narrative 06/20/2022 4:25 PM CDT PROCEDURE: ??XR CERVICAL SPINE 2 OR 3VW, DATE/TIME OF EXAM: ??06/20/2022 3:13 PM, LOCATION ??[facility] INDICATION: R42: Dizziness R06.02: Shortness of [...] 3VW, DATE/TIME OF EXAM: 33:13 PM, LOCATION [facility] INDICATION: R42: Dizziness R06.02: Shortness of [...] spine. Report dictated by Yasir Pierre MD (radiology physician assistant). Kamila Narvaez MD have personally reviewed and interpreted this examination/study. > Interpreting Provider: Kamila Barber MD on 06/20/2022 4:25 PM Adolph Mckinney MD DIAGNOSTIC IMAGING ORDERABLES * XR CHEST 2VW (06/20/2022 3:02 PM CDT) Anatomical Region Laterality Modality Chest Radiographic Vivian ging 06/20/2022 3:13 PM CDT Narrative 06/20/2022 3:49 PM CDT PROCEDURE: ??XR CHEST 2VW, DATE/TIME OF EXAM: ??06/20/2022 3:03 PM, LOCATION [facility] INDICATION: R06.02: Shortness of breath ADDITIONAL [...] heads. Report dictated by Yasir Pierre MD (radiology physician assistant). Haroldo Narvaez MD have personally reviewed and interpreted this examination/study. > Interpreting Provider: Haroldo Ball MD on 06/20/2022 3:49 PM Procedure Note Haroldo Ball MD - 06/20/2022 PROCEDURE: XR CHEST 2VW, DATE/TIME OF EXAM: 06/20/2022 3:03 PM, LOCATION [facility] INDICATION: R06.02: Shortness of breath ADDITIONAL [...] heads. Report dictated by Yasir Pierre MD (radiology physician assistant). I, Haroldo Ball MD have personally reviewed and interpreted this examination/study. > Interpreting Provider: Haroldo Ball MD on 06/20/2022 3:49 PM Adolph Mckinney MD DIAGNOSTIC IMAGING ORDERABLES * TYPE + SCREEN PANEL (06/20/2022 2:05 PM CDT) Pathologist [facility] Antibody Screen NEG 2:53 PM CDT [facility] ABO Rh A POS 06/20/2022 2:53 PM CDT [facility] Blood Bank BLOOD SPECIMEN / Unknown Venipuncture / Unknown 06/20/2022 2:05 PM CDT 06/20/2022 2:08 PM CDT Adolph Mckinney MD LAB - BLOOD BANK O RDERABLES Performing Organization Address City/[facility]/ZIP Co de Phone Number [facility] [address] [place] [phone], [facility] [phone] * LACTIC ACID BLOOD (06/20/2022 2:05 PM CDT) [facility] Lactic Acid-Stat 1.1 <=2.0 mmol/L 06/20/2022 2:48 PM CDT [facility] Blood BLOOD SPECIMEN / Unknown Venipuncture / Unknown 06/20/2022 2:05 PM CDT 06/20/2022 2:23 PM CDT Adolph Mckinney MD LAB - CHEMISTRY OR DERABLES [address] [address], [facility] [phone] * LIPASE BLOOD (06/20/2022 2:05 PM CDT) Pathologist [facility] Lipase 18 8 - 78 U/L 06/20/2022 2:50 PM CDT [facility] Blood BLOOD SPECIMEN / Unknown Venipuncture / Unknown 06/20/2022 2:05 PM CDT 06/20/2022 2:23 PM CDT Narrative [facility] - 06/20/2022 2:50 PM CDT Lipase results from the [employer] Alinity analyzer may not be comparable with other methodologies. Adolph Mckinney MD LAB - CHEMISTRY OR DERABLES Performing Organization Address [facility] Co de Phone Number [facility] [address] [place] [address], [facility] [phone] * PT-INR [facility] (06/20/2022 2:05 PM CDT) PT 13.4 12.1 - 14.8 Seconds 06/20/2022 2:48 PM CDT [facility] INR 1.0 See Comment 06/20/2022 2:48 PM CDT [facility] Comment:The suggested therap eutic range for standard coumadin (warfarin) therapy is an INR of 2.0-3.0. For high-risk patients (Mechanical Mitral Valve Prosthesis, etc.), the suggested prophylactic therapeutic range is an INR of 2.5-3.5. Blood BLOOD SPECIMEN / Unknown Venipuncture / Unknown 06/20/2022 2:05 PM CDT 06/20/2022 2:07 PM CDT Adolph Mckinney MD LAB - COAGULATION ORDERABLES Performing Organization Address City/[facility] Co de Phone Number [facility] [address] [place] [address], [facility] [phone] * (ABNORMAL) CBC W/O DIFFERENTIAL (06/20/2022 2:05 PM CDT) WBC 9.5 3.5 - 10.5 10? 3 /uL 06/20/2022 2:27 PM CDT [facility] RBC 3.07(L) 3.80 - 5.20 10? 6 /uL 06/20/2022 2:27 PM CDT [facility] Hemoglobin 9.3(L) 12.0 - 15.6 g/dL 06/20/2022 2:27 [address] [facility] Hematocrit 27.6(L) 35.0 - 45.0 % 06/20/2022 2:27 PM [facility] MCV 89.9 80.7 - 98.3 fL 06/20/2022 2:27 PM [facility] MCH 30.3 26.7 - 34.0 pg 06/20/2022 2:27 PM [facility] MCHC 33.7 30.8 - 35.9 g/dL 06/20/2022 2:27 PM [facility] RDW-SD 45.2 36.0 - 50.0 fL 06/20/2022 2:27 PM [facility] RDW-CV 14.0 11.2 - 14.8 % 06/20/2022 2:27 PM [facility] Platelet Count 463(H) 150 - 400 10? 3 /uL 06/20/2022 2:27 PM [facility] MPV 9.2(L) 9.4 - 12.9 fL 06/20/2022 2:27 PM [facility] nRBC Absolute 0.00 0 10? 3 /uL 06/20/2022 2:27 PM [facility] nRBC Auto 0.0 0 /100 WBC 06/20/2022 2:27 PM [facility] Blood BLOOD SPECIMEN / Unknown Venipuncture / Unknown 06/20/2022 2:05 PM CDT 06/20/2022 2:22 PM CDT Adolph Mckinney MD LAB - HEMATOLOGY O RDERABLES [facility] [address] [place] [phone], [facility] [phone] * TROPONIN-I HIGH SENSITIVE REFLEX 1HOUR (06/20/2022 1:05 PM CDT) Troponin I High Sensitive 8 <=14 ng/L 06/20/2022 1:59 PM T [facility] Delta Troponin I HS 06/20/2022 1:59 PM T [facility] Comment:Delta value intentio anil not calculated. Baseline to 1 hour specimen collection interval exceeded. Blood BLOOD SPECIMEN / Unknown Venipuncture / Unknown 06/20/2022 1:05 PM CDT 06/20/2022 1:23 PM CDT Sima Kaufman PA-C LAB - CHEMISTRY ORD ERABLES Performing Organization Address City/[facility]/ZIP Co de Phone Number [address] [address], [facility] [phone] * TROPONIN-I HIGH SENSITIVE BASELINE + 1HR (06/20/2022 9:49 AM CDT) Pathologist [facility] Troponin I High Sensitive 7 <=14 ng/L 06/20/2022 10:39 AM CDT [facility] Blood BLOOD SPECIMEN / Unknown Venipuncture / Unknown 06/20/2022 9:49 AM CDT 06/20/2022 9:55 AM CDT Sima Kaufman PA-C LAB - CHEMISTRY ORD ERABLES Performing Organization Address [facility]/ZIP Co de Phone Number [address] [address], [facility] [phone] * (ABNORMAL) COMPREHENSIVE METABOLIC PANEL (06/20/2022 9:49 AM CDT) Pathologist [facility] BUN 14 7 - 26 mg/dL 06/20/2022 10:32 AM T [facility] Creatinine 1.02(H) 0.56 - 0.96 mg/dL 06/20/2022 10:32 AM [facility] Sodium 128(L) 136 - 145 mmol/L 06/20/2022 10:32 AM T [facility] Potassium 4.3 3.5 - 4.5 mmol/L 06/20/2022 10:32 AM [facility] Chloride 93(L) 98 - 107 mmol/L 06/20/2022 10:32 AM [facility] CO2 26 22 - 29 mmol/L 06/20/2022 10:32 AM T [facility] Glucose 91 70 - 115 mg/dL 06/20/2022 10:32 AM [facility] Calcium 9.8 8.4 - 10.2 mg/dL 06/20/2022 10:32 AM [facility] Protein Total 6.5 6.0 - 8.3 g/dL 06/20/2022 10:32 AM [facility] Albumin 3.5 3.4 - 5.0 g/dL 06/20/2022 10:32 AM [facility] Bilirubin Total 0.6 0.2 - 1.2 mg/dL 06/20/2022 10:32 AM [facility] Alkaline Phosphatase 66 40 - 150 U/L 06/20/2022 10:32 AM [facility] ALT 10 5 - 55 U/L 06/20/2022 10:32 AM [facility] AST 16 5 - 34 U/L 06/20/2022 10:32 AM [facility] Anion Gap 13 8 - 18 06/20/2022 10:32 AM [facility] BUN/Creatinine Ratio 14 7 - 23 06/20/2022 10:32 AM [facility] Osmolality Calculated 266(L) 270 - 300 mOsm/kg 06/20/2022 10:32 AM [facility] Albumin/Globulin Ratio 1.2 1.1 - 2.3 06/20/2022 10:32 AM [facility] eGFR by CKD-EPI 58(L) >=90 mL/min/1.7 3 m2 06/20/2022 10:32 AM [facility] Blood BLOOD SPECIMEN / Unknown Venipuncture / Unknown 06/20/2022 9:49 AM CDT 06/20/2022 9:55 AM CDT Sima Kaufman PA-C LAB - CHEMISTRY ORD ERABLES [facility] [address] [place] [address], [facility] [phone] * (ABNORMAL) CBC W AUTO DIFFERENTIAL (06/20/2022 9:49 AM CDT) WBC 11.8(H) 3.5 - 10.5 10? 3 /uL 06/20/2022 9:58 AM [facility] RBC 3.02(L) 3.80 - 5.20 10? 6 /uL 06/20/2022 9:58 AM [facility] Hemoglobin 9.0(L) 12.0 - 15.6 g/dL 06/20/2022 9:58 AM [facility] Hematocrit 27.7(L) 35.0 - 45.0 % 06/20/2022 9:58 AM [facility] MCV 91.7 80.7 - 98.3 fL 06/20/2022 9:58 AM [facility] MCH 29.8 26.7 - 34.0 pg 06/20/2022 9:58 AM [facility] MCHC 32.5 30.8 - 35.9 g/dL 06/20/2022 9:58 AM [facility] RDW-SD 45.6 36.0 - 50.0 fL 06/20/2022 9:58 AM [facility] RDW-CV 13.8 11.2 - 14.8 % 06/20/2022 9:58 AM [facility] Platelet Count 449(H) 150 - 400 10? 3 /uL 06/20/2022 9:58 AM [facility] MPV 9.0(L) 9.4 - 12.9 fL 06/20/2022 9:58 AM [facility] nRBC Absolute 0.00 0 10? 3 /uL 06/20/2022 9:58 AM [facility] nRBC Auto 0.0 0 /100 WBC 06/20/2022 9:58 AM [facility] Neutrophils % 84.6(H) 35.0 - 70.0 % 06/20/2022 9:58 AM [facility] Lymphocytes % 6.7(L) 20.0 - 43.0 % 06/20/2022 9:58 AM [facility] Monocytes % 6.6 5.0 - 13.0 % 06/20/2022 9:58 AM [facility] Eosinophils % 1.1 0.0 - 6.0 % 06/20/2022 9:58 AM CDT [facility] Basophil % 0.6 0.0 - 2.0 % 06/20/2022 9:58 AM CDT [facility] Neutrophils Absolute 9.94(H) 1.60 - 7.00 10? 3 /uL 06/20/2022 9:58 AM CDT [facility] Lymphocyte Absolute 0.79(L) 1.10 - 3.90 10? 3 /uL 06/20/2022 9:58 AM T [facility] Monocytes Absolute 0.77 0.26 - 1.07 10? 3 /uL 06/20/2022 9:58 AM [facility] Eosinophils Absolute 0.13 0.00 - 0.47 10? 3 /uL 06/20/2022 9:58 AM CDT [facility] Basophils Absolute 0.07 0.00 - 0.08 10? 3 /uL 06/20/2022 9:58 AM CDT [facility] Immature Granulocytes % 0.4 0.0 - 1.0 % 06/20/2022 9:58 AM CDT [facility] Immature Granulocytes Absolute 0.05 06/20/2022 9:58 AM [facility] Blood BLOOD SPECIMEN / Unknown Venipuncture / Unknown 06/20/2022 9:49 AM CDT 06/20/2022 9:54 AM CDT Sima Kaufman PA-C LAB - HEMATOLOGY OR DERABLES Performing Organization Address [facility] Co de Phone Number [facility] [address] [place] [address], [facility] [phone] * EKG 12-LEAD (06/20/2022 9:40 AM CDT) Ventricular Rate 88 BPM [facility] MUSE Atrial Rate 88 BPM [facility] MUSE P-R Interval 176 ms [facility] MUSE QRS Duration ms 70 ms [facility] MUSE Q-T Interval ms 348 ms [facility] MUSE QTC Calculation (Bezet) 421 ms [facility] MUSE Calculated P [place] 75 degrees [facility] MUSE Calculated R [place] 55 degrees [facility] MUSE Calculated T [place] 74 degrees [facility] MUSE Interpretation EKG NORMAL SINUS RHYTHM NORMAL ECG WHEN COMPARED WITH ECG OF 15-FEB-2022 00:55, VENT. RATE HAS INCREASED by 15 bpm Confirmed by MARIN KEARNS MD ([id number]) on 06/20/2022 1:46:36 PM [facility] MUSE 06/20/2022 9:40 AM CDT 06/20/2022 1:46 PM CDT Sima Kaufman PA-C ECG ORDERABLES [facility] SEBASTIAN documented in this encounter Visit Diagnoses [...] ($ Given - Provider: Mark Anthony Magana, SNATI)[phone] ($ Given - Provider: Damian Arevalo, SANTI) [...] ($ Given - Provider: Mark Anthony Magana RN)[phone] ($ Given - Provider: Damian Arevalo RN) [...] swallow. documented in this encounter Care Teams [employer] Relationship Specialty Start Date End Date Karrie Phillips MD [address] [place] [address] PCP - General 03/13/22 documented as of this encounter
--- OUTSIDE RECORDS SUMMARY | 2024-04-11 21:57 | XMS_ITS | Encounter Summary ---
Author Organization [facility] Address [address] [place] [address] Care Team Providers Care Environmental Solutions Engineer Name Role Phone Karrie Phillips MD Primary Care Provider [phone] Encounter Details Date Type Department Care Team (Late st Contact Info) Description 09/04/2022 Orders Only [facility] [address] [place] [address], [place] [address] Deon Taylor MD [address] [place] [address] [phone] S/P cervical spinal fusion Social History Tobacco [...] and heating? Not hard at all 06/04/2022 [facility] [place] of Occupat ional Health - Occupational Stress [...] st Contact Info) Description 06/02/2024 1:45 PM HOSPICE ADMINISTRATOR Office Visit [facility] - Orthopedics [address] [place] [address] Deon Taylor MD [address] [place] [address] documented as of this encounter Results * XR CERVICAL SPINE 2 OR 3VW (09/04/2022 2:09 PM CDT) Anatomical Region Laterality Modality Spine Radiographic Vivian ging 09/04/2022 2:11 PM CDT Narrative 09/04/2022 3:15 PM CDT PROCEDURE: ??XR CERVICAL SPINE 2 OR 3VW, DATE/TIME OF EXAM: ??09/04/2022 2:09 PM, LOCATION ??[facility] INDICATION: Z98.1: S/P cervical spinal fusion ADDITIONAL [...] Report dictated by Jose Kohli MD (residential mental health worker). I, Tony Hansen MD have personally reviewed and interpreted this examination/study. > Interpreting Provider: Tony Hansen MD on 09/04/2022 3:15 PM Procedure Note Tony Hansen MD - 09/04/2022 PROCEDURE: XR CERVICAL SPINE 2 OR 3VW, DATE/TIME OF EXAM: 32:09 PM, LOCATION [facility] INDICATION: Z98.1: S/P cervical spinal fusion ADDITIONAL [...] Report dictated by Jose Kohli MD (residential mental health worker). I, Tony Hansen MD have personally reviewed and interpreted this examination/study. > Interpreting Provider: Tony Hansen MD on 09/04/2022 3:15PM Deon Taylor MD DIAGNOSTIC IMAGING O RDERABLES documented in this encounter Visit Diagnoses Diagnosis S/P cervical spinal fusion- Primary Arthrodesis status S/P cervical spinal fusion Arthrodesis status documented in this encounter Care Teams Environmental Solutions Engineer Relationship Specialty Start Date End Date Karrie Phillips MD [address] [place] [address] PCP - General 03/13/22 documented as of this encounter
--- OUTSIDE RECORDS SUMMARY | 2024-04-11 21:57 | XMS_ITS | Encounter Summary ---
Author Organization [facility] Address [address] [place] [address] Care Team Providers Care Sfdc Solution Architect Name Role Phone Karrie Phillips MD Primary Care Provider [phone] Encounter Details Date Type Department Care Team (Latest Contact Info) Description 12/04/2022 2:44 PM CDT - 12/04/2022 11:59 PM CDT Hospital Encounter [facility] DIAGNOSTIC RAD CSM 1L [address] [facility] [place] [address] Deon Taylor MD [address] [place] [address] Discharge Disposition: Home or Self Care Social [...] and heating? Not hard at all 06/04/2022 [facility] [place] of Occupat ional Health - Occupational Stress [...] mouth every evening 06/08/2022 saline nasal spray ([place]; Baby [place]) 0.65 % nasal spray [place] 1 (one) spray into each nostril as needed for Dry Nose 15 mL 02/19/2022 vitamin D3 (Cholecalciferol) 10 MCG (400 UNIT) tablet Take 2 (two) tablets by mouth once daily 06/09/2022 documented as of this encounter Plan of Treatment Upcoming Encounters Date Type Department Care Team (Late st Contact Info) Description 06/02/2024 1:45 PM TANBARK LABORER Office Visit [facility] - Orthopedics [address] [facility], [place] [address] Deon Taylor MD [facility] [place] [address] documented as of this encounter Procedures Procedure [...] alignment. Report dictated by Caesar Carpio MD (memory care program resident). I, Petar Spears MD have personally reviewed and interpreted this examination/study. > Interpreting Provider: Petar Spears MD on 12/04/2022 3:02 PM Narrative 12/04/2022 3:02 PM CDT PROCEDURE: ??XR CERVICAL SPINE 2 OR 3VW, DATE/TIME OF EXAM: ??12/04/2022 2:47 PM, LOCATION ??[facility] INDICATION: Z98.1: S/P cervical spinal [...] 3VW, DATE/TIME OF EXAM: 32:47 PM, LOCATION [facility] INDICATION: Z98.1: S/P cervical spinal [...] alignment. Report dictated by Caesar Carpio MD (memory care program resident). I, Petar Spears MD have personally reviewed and interpreted this examination/study. > Interpreting Provider: Petar Spears MD on 12/04/2022 3:02 PM Deon Taylor MD DIAGNOSTIC IMAGING O RDERABLES documented in this encounter Visit Diagnoses Diagnosis S/P cervical spinal fusion Arthrodesis status documented in this encounter Care Teams Sfdc Solution Architect Relationship Specialty Start Date End Date Karrie Phillips MD [address] [place] [address] PCP - General 03/13/22 documented as of this encounter
--- OUTSIDE RECORDS SUMMARY | 2024-04-11 21:57 | XMS_ITS | Encounter Summary ---
Author Organization [facility] Address [address] [facility] [place] [address] Care Team Providers Care Upholsterer Assembly Line Name Role Phone Karrie Phillips MD Primary Care Provider [phone] Reason for Visit * Reason Comments Surgical Follow-up Encounter Details Date Type Department Care Team (Late st Contact Info) Description 07/18/2022 10:00 AM CDT Office Visit [facility] [address] [place] [address], [place] [address] Deon Taylor MD [address] [place] [address] [phone] S/P cervical spinal fusion (Primary Dx); Status [...] and heating? Not hard at all 06/04/2022 [facility] [place] of Occupat ional Health - Occupational Stress [...] Avendaño RN at (previously ) or through [employer] if you have any further questions or concerns. [facility] Orthopaedic office contact information: [facility] Medicine (at [facility]) [address] [place] [address] [place] [address] [facility] [address] [place] [address], [place] [address] July 18, 2022 To Whom It May Concern: Please use this letter to document that Kandace Cole, : 1950, was in to see Deon Taylor MD on 07/18/2022. Thank you. Sincerely, Deon Taylor MD [facility] ORTHO CSM 1L documented in this encounter [...] deltoids biceps triceps wrist extensors wrist flexors tower attendant strength interosseous muscles as well as hip [...] st Contact Info) Description 06/02/2024 1:45 PM TEST FACILITY ENGINEER Office Visit [facility] [address] [place] [address], [place] [address] Deon Taylor MD [address] [place] [address] documented as of this encounter Results * [...] surgery documented in this encounter Care Teams Upholsterer Assembly Line Relationship Specialty Start Date End Date Karrie Phillips MD [address] [place] [address] PCP - General 03/13/22 documented as of this encounter
--- OUTSIDE RECORDS SUMMARY | 2024-04-11 21:57 | XMS_ITS | Encounter Summary ---
Author Organization [facility] Address [address] [place] [address] Care Team Providers Care Accounts Administrator Name Role Phone Karrie Phillips MD Primary Care Provider [phone] Reason for Visit * Auth/Cert (Routine) Specialty Diagnoses / Procedures Referred By Everardo fried Referred To Contact Referral ID Status Reason Start Date Expiration Date Visits Re quested Visits Authorized [id number] 1 1 Encounter Details Date Type Department Care Team (Late st Contact Info) Description 06/21/2022 4:26 PM CDT Anesthesia Event [facility] [address] [place] [address] Dallas Francisco MD [address] [facility] [address] [place] [address] Price Michel DO [address] [place] [address] Anesthesia Record Procedure Summary Procedure Name Responsible [...] and heating? Not hard at all 06/04/2022 [facility] [place] of Occupat ional Health - Occupational Stress [...] procedural Anesthetic Plan was discussed with the CAMP COOK. BMI, Height, Weight Tobacco History Estimated body [...] fractures of facial bone, initial encounter ([facility]) 02/15/2022 Priority: Not Prioritized ??? [...] Priority: Not Prioritized ??? Systemic sclerosis ([facility]) 12/07/2021 Priority: Not Prioritized ??? Sprain of ankle 12/07/2021 Priority: Not Prioritized ??? Sciatica 12/07/2021 Priority: Not Prioritized ??? Recurrent major depression in remission ([facility]) 12/07/2021 Priority: Not Prioritized ??? Polyp of colon 12/07/2021 Priority: Not Prioritized ??? Perineal pain 12/07/2021 Priority: Not Prioritized ??? Nonexudative age-related macular degeneration 12/07/2021 Priority: Not Prioritized ??? 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 Multiple bruises 12/07/2021 Priority: Not Prioritized ??? Mixed collagen vascular disease ([facility]) 12/07/2021 Priority: Not Prioritized ??? Paronychia of toe of right foot 07/25/2021 Priority: Not Prioritized ??? Onychomycosis of toenail 07/17/2021 Priority: Not Prioritized ??? Chronic kidney disease 03/30/2019 Priority: Not Prioritized ??? Chronic obstructive pulmonary disease ([facility]) 03/30/2019 Priority: Not Prioritized ??? Hyposmolality 03/30/2019 Priority: Not Prioritized ??? Ulnar neuropathy 03/30/2019 Priority: Not Prioritized ??? Raynaud's disease 03/30/2019 Priority: Not Prioritized ??? Dyspnea on exertion 02/23/2019 Priority: Not Prioritized ??? Type 2 diabetes mellitus ([facility]) 02/23/2019 Priority: Not Prioritized ??? Type 2 diabetes mellitus with stage 3 chronic kidney disease, without long- term current use of insulin ([facility]) 02/23/2019 Priority: Not Prioritized ??? Mixed hyperlipidemia 02/23/2019 Priority: Not Prioritized ??? Degeneration of cervical intervertebral disc 12/09/2009 Medical History: Past Medical History: Diagnosis Date ??? Anemia ??? Ferrell's esophagus ??? CKD (chronic kidney disease), stage III ([facility]) ??? Diabetes ??? Disease of [...] Repair Bilateral ??? ULNAR NERVE TRANSPOSITION Left NUCLEAR MEDICINE PHYSICIAN Status: No LMP recorded (lmp unknown). Patient has had a hysterectomy. Hysterectomy OB History No obstetric history on file. Covid Vaccine: Lab Results: Recent Labs Base Name 06/08/22 0747 [id number] SPECIMENTYPE Arterial Recent Labs Component Name [...] Anesthesia Transfer of Care - Denita Taylor APRN-[facility] - 06/21/2022 4:59 PM CDT ANESTHESIA TRANSFER [...] st Contact Info) Description 06/02/2024 1:45 PM ALUMINIZER Office Visit [facility] Orthoped[facility] [address] [place] [address], [facility] [place] [address] Deon Taylor MD [address] [place] [address] documented as of this encounter Visit [...] mg documented in this encounter Care Teams Accounts Administrator Relationship Specialty Start Date End Date Karrie Phillips MD [address] [place] [address] PCP - General 03/13/22 documented as of this encounter
--- OUTSIDE RECORDS SUMMARY | 2024-04-11 21:57 | XMS_ITS | Encounter Summary ---
Author Organization [facility] Address [address] [place] [address] Care Team Providers Care Cinnamon Grinder Name Role Phone Karrie Phillips MD Primary Care Provider [phone] Reason for Visit * Reason Comments Pain Neck * Consult, Test & Treat (Routine) - Closed Specialty Diagnoses / Procedures Referred By Contac t Referred To Contact Orthopedic Surgery / Orthopedics Selfreferral, Patient Deon Taylor MD [address] [place] [address] Referral ID Status Reason Start Date Expiration Date Visits Re quested Visits Authorized [id number] Closed 09/04/2022 09/04/2023 1 1 Encounter Details Date Type Department Care Team (Late st Contact Info) Description 09/04/2022 2:00 PM CDT Office Visit [facility] [address] [place] [address], [place] [address] Deon Taylor MD [address] [place] [address] S/P cervical spinal fusion (Primary Dx) [...] hard at all 06/04/2022 [facility] of Occupat ional [facility] - Occupational Stress Questionnaire Answer Date Recorded [...] 911. Please contact Anabell Avendaño RN at [phone] (previously [phone]) or through [employer] if you have any further questions or concerns. [facility] Orthopaedic office contact information: [facility] (at [facility]) [address] [place] [address] [place] [address] [facility] [address] [place] [address], [place] [address] September 04, 2022 To Whom It May Concern: Please use this letter to document that Kandace Cole, : 1950, was in to see Deon Taylor MD on 09/04/2022. Thank you. 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 Please reach out to my clinical nurse, Anabell Avendaño RN [phone] for any questions or concerns. Deon Taylor MD documented in this encounter Plan of Treatment Upcoming Encounters Date Type Department Care Team (Late st Contact Info) Description 06/02/2024 1:45 PM ENGINEER GAS PUMPING STATION Office Visit [facility] [address] [place] [address], [place] [phone] Deon Taylor MD [address] [place] [address] documented as of this encounter Visit Diagnoses Diagnosis S/P cervical spinal fusion- Primary Arthrodesis status documented in this encounter Care Teams Cinnamon Grinder Relationship Specialty Start Date End Date Karrie Phillips MD [address] [place] [address] PCP - General 03/13/22 documented as of this encounter
--- OUTSIDE RECORDS SUMMARY | 2024-04-11 21:57 | XMS_ITS | Encounter Summary ---
Author Organization [facility] Address [address] [facility] [place] [address] Care Team Providers Care Web Interface Developer Name Role Phone Karrie Phillips MD Primary Care Provider [phone] Encounter Details Date Type Department Care Team (Latest Contact Info) Description 07/18/2022 11:01 AM CDT - 07/18/2022 11:59 PM CDT Hospital Encounter [facility] DIAGNOSTIC RAD CSM 1L [address] [facility] [address] Deon Taylor MD [address] [place] [address] Discharge Disposition: Home or Self Care Social [...] and heating? Not hard at all 06/04/2022 [facility] [place] of Occupat ional Health - Occupational Stress [...] mouth every evening 06/08/2022 saline nasal spray ([place]; Baby [place]) 0.65 % nasal spray [place] 1 (one) spray into each nostril as needed for Dry Nose 15 mL 02/19/2022 vitamin D3 (Cholecalciferol) 10 MCG (400 UNIT) tablet Take 2 (two) tablets by mouth once daily 06/09/2022 documented as of this encounter Plan of Treatment Upcoming Encounters Date Type Department Care Team (Late st Contact Info) Description 06/02/2024 1:45 PM SYNTHETIC GEM PRESS OPERATOR Office Visit [facility] - Orthopedics [address] [place] [address], [facility] [place] [address] Deon Taylor MD [address] [place] [address] documented as of this encounter Procedures Procedure [...] surgery documented in this encounter Care Teams Web Interface Developer Relationship Specialty Start Date End Date Karrie Phillips MD [address] [place] [address] PCP - General 03/13/22 documented as of this encounter
--- OUTSIDE RECORDS SUMMARY | 2024-04-11 21:57 | XMS_ITS | Encounter Summary ---
Author Organization [facility] Address [address] [place] [address] Care Team Providers Care Pump Operator Byproducts Name Role Phone Karrie Phillips MD Primary Care Provider [phone] Reason for Visit * Auth/Cert (Routine) Specialty Diagnoses / Procedures Referred By Everardo fried Referred To Contact Diagnoses Cervical myelopathy (HCC) cervical myelopathy Procedures FUSION POSTERIOR CERVICAL (PCF) Referral ID Status Reason Start Date Expiration Date Visits Re quested Visits Authorized [id number] 1 1 Encounter Details Date Type Department Care Team (Late st Contact Info) Description 06/04/2022 5:08 AM [facility] - 06/08/2022 9:15 PM [facility] Hospital Encounter SL 5S ACUTE [address] [place] [address] Deon Taylor MD [address] [place] [id number] Ama Gonzalez MD [address] [place] [address] 2[address] [facility] [place] [address] Surgery General Discharge Disposition: Rehab:Inpatient Social History [...] and heating? Not hard at all 06/04/2022 [facility] - Occupational Stress [...] Comments Blood Pressure 130/85 06/08/2022 8:09 PM [facility] Pulse 65 06/08/2022 8:09 PM [facility] Temperature 36.6 ??C (97.8 ??F) 06/08/2022 8:09 PM CS T Respiratory Rate 16 06/08/2022 8:09 PM [facility] Oxygen Saturation 100% 06/08/2022 8:09 PM [facility] Inhaled Oxygen Concentration - - Weight 60.5 kg (133 lb 6.4 oz) 06/04/2022 5:52 A M [facility] Height 154.9 cm (5' 1 ) 06/04/2022 5:52 AM [facility] Body Mass Index 25.21 06/04/2022 5:52 AM [facility] documented in this encounter Functional Status Functional [...] Physician Discharge Summary Patient ID: Kandace Cole [id number] 72 year old 1950 Admit date: 06/04/2022 [...] PT/OT who are recommending rehab. Discharged to [facility]. ?? Consults: Orthopedics Significant [...] 0.65 % nasal spray Commonly known as: Rocky Comfort; Baby Acton Clarksdale 1 (one) spray into each nostril as [...] sure to ask the pharmacy when you orange picker machine operator your prescription. You may also call your primary provider to ask if you should be taking your medication. FOLLOW-UP: It is important that you follow-up with all appointments that have been made on your behalf. These appointments include: Future Appointments Monday June 20, 2022 8:45 AM Appointment with Deon Taylor at [facility] 1L ([phone]) [address] [facility], First Level [facility] [address] If a follow-up with your primary care provider has not been scheduled, please schedule an appointment to follow-up on your hospitalization. If there is a conflict, please call the clinic ahead of time and reschedule the appointment. Regards, Internal Medicine Department [facility] [address] [place] [address] Orthopedic Spine Surgery Patient Discharge [...] Dr. Taylor's nurse, Anabell Avendaño RN, at [phone] with any questions or concerns. - ACTIVITY: [...] please call 911. Follow up Contact Information: [facility] Orthopedic Surgery office contact information: [facility] ([facility]) [address] [place] [address], 1st [place] [address] [place] [id number] [facility], [address] [place] [address] Visit our website at [email or web address] for information about our practice and an interactive health encyclopedia. Please visit [email or web address] to access your health record, ask questions, request medication refills, and request appointments for non-urgent needs after you have configured your [employer] account. If you do not currently have access, please contact one of our staff members or call [phone]. For after hour emergencies, please call and press 0 for the metal drill press operator in order to page the orthopedic resident consumer affairs director. This list of medications is preliminary and [...] TABLET BY MOUTH DAILY saline nasal spray (Rocky Comfort; Baby Acton) 0.65 % nasal spray Clarksdale 1 (one) spray into each nostril as [...] Tammi Perez MD, 06/08/2022 at 3:12 PM ROAST Associated attestation - Ama Gonzalez MD - 06/08/2022 7:17 PM [facility] I have verified the documentation and discharge [...] falls and polypharmacy, who was admitted to [facility] 06/04 for a planned cervical-thoracic posterior [...] Tammi Perez MD - 06/07/2022 11:07 AM [facility] A Note From Your Doctors: Dear Kandace [...] 0.65 % nasal spray Commonly known as: Rocky Comfort; Baby Acton Clarksdale 1 (one) spray into each nostril as [...] sure to ask the pharmacy when you orange picker machine operator your prescription. You may also call your primary provider to ask if you should be taking your medication. FOLLOW-UP: It is important that you follow-up with all appointments that have been made on your behalf. These appointments include: Future Appointments Monday June 20, 2022 8:45 AM Appointment with Deon Taylor at [facility] [address] ([phone]) [address] [facility] [address] If a follow-up with your primary care provider has not been scheduled, please schedule an appointment to follow-up on your hospitalization. If there is a conflict, please call the clinic ahead of time and reschedule the appointment. Regards, Internal Medicine Department [facility] [address] [place] [address] Orthopedic Spine Surgery Patient Discharge [...] Dr. Taylor's nurse, Anabell Avendaño RN, at [phone] with any questions or concerns. - ACTIVITY: [...] please call 911. Follow up Contact Information: [facility] Orthopedic Surgery office contact information: [facility] ([facility]) [address] [place] [address], 1st [place] [address] [facility] [address] [facility], [address] [place] [address] Visit our website at [email or web address] [email or web address] for information about our practice and an interactive health encyclopedia. Please visit [employer] to access your health record, ask questions, request medication refills, and request appointments for non-urgent needs after you have configured your [employer] account. If you do not currently have access, please contact one of our staff members or call [phone]. For after hour emergencies, please call and press 0 for the metal drill press operator in order to page the orthopedic resident consumer affairs director. ROAST documented in this encounter Medications at Time [...] mouth every evening 06/08/2022 saline nasal spray (Rocky Comfort; Baby Acton) 0.65 % nasal spray Clarksdale 1 (one) spray into each nostril as [...] to allow for safe mobility Outcome: Progressing ROAST * Makenzie Choi RN - 06/08/2022 3:57 [...] RN Outcome: Adequate for Discharge 06/08/20220 by Makenize Choi RN Outcome: Progressing Goal: Adheres to [...] 1420 by Makenzie Choi RN Outcome: Progressing ROAST * Charissa Murphy - 06/08/2022 2:52 PM CST Facility Transfer Note Level of Care: Actual level of care at discharge: Acute Rehab Facility Facility Name: (include name of person confirming admission): Actual discharge provider: [facility] Made Aware of Special Needs (if applicable): n/a RN Call Report to:[phone] Fax D/C Orders to:[phone] MD to MD: Dr Baldwin [phone] Transportation (company and number): [facility]: [phone] Certificate of Medical Necessity rationale: weakness, impaired mobility, unsteady gait, spinal precautions Date/time of transfer: 06-08-22 @ Accepting MD and contact #: Denny Completed and Signed [id number] (if applicable): n/a Family/Other Notified of Transfer (name/phone): patient Authorization Skilled Care: Authorization for Transportation: Verified Qualifying Stay(Skilled Only): NOT APPLICABLE Comments: Name/Phone number: Charissa Lawrence Jeffrey [phone] ROAST * Joanna Easley PT - 06/08/2022 2:24 PM CST [facility] Physical Medicine and Rehabilitation Physical Therapy Progress Note Patient: Kandace Cole Med Record Number: [id number] Date of : 1950 Age: [age] year [...] as Tolerated Spine Precautions: Yes Spine Precautions: Sullivan OBJECTIVE: At start of therapy session, patient [...] ambulate??75??feet with minimal assist??and appropriate AD ?? Prison Goal(s): Patient to discharge to appropriate next [...] light within reach, with Makenzie HANCOCK aware. ROAST * Makenzie Choi RN - 06/08/2022 2:20 [...] to allow for safe mobility Outcome: Progressing ROAST * Annemarie Collazo COTA - 06/08/2022 2:04 PM CST [facility] Physical Medicine and Rehabilitation Occupational Therapy Progress Note Patient: Kandace Cole [facility] Record Number: [id number] Date of : 1950 Age: [age] year [...] perform bed to chair??with stand by assist Bridge/Structure Inspection Team Leader Goal(s): Patient to discharge to appropriate next [...] with therapy cues visible on white board. ROAST * Cammy Aleman RN - 06/08/2022 12:51 [...] Relation: Brother Secondary Emergency Contact: JanuaryBarbara Address: [place], [place] Relation: Other Transportation at Discharge: Family [...] get more.: Never true Medication affordability concerns: Strang: Cammy Aleman RN Case cost and risk analysis manager: [phone] 06/08/2022 ROAST * Tammi Perez MD - 06/08/2022 10:20 AM CST Internal Medicine Progress Note Patient: Kandace Cole (:1950) Room: [facility] Date of admission: 06/04/2022 No of days [...] results for input(s): MG in the last 47900 hours. Phosphorus: Recent Labs Component Name 06/08/2221206/07/2222306/06/22306 PHOS 2.5* 2.7* 3.2 Coagulation: No results for input(s): PT, INR, PTT in the last 00377 hours. Micro Microbiology Results (Displays last 21 [...] ? Tammi Perez MD PGY-3 Internal Medicine ROAST Associated attestation - Ama oGnzalez MD - 06/08/2022 10:42 PM [facility] I have verified the documentation of the [...] Easley PT - 06/08/2022 10:15 AM CST [facility] Department of Physical Medicine & Rehabilitation Progress Note Patient: Kandace Cole Med Record Number: [id number] Date of : 1950 Age: [age] year old 06/08/22 1015 Missed Visit Missed Visit Other (Comment) (Patient just back to bed. Requested therapy at later time.) ROAST * Charissa Murphy - 06/08/2022 9:55 AM CST Saturday Summary Note Discharge Level of Care: Rehab Discharge Destination:[facility] Phone Number: (Tracey peña) Fax Number: Insurance Auth:auth will need to be done as patient has [facility] Anticipated Mode of Transportation: to be determined (EMS) or person vehicle Contacts (Name, relationship, phone #): Anticipated DC Date: patient is ready for disposition Pending Needs: review from rehab for acceptance and authorization will need to be done. Comments: Liaison is aware of this referral and will review. DASHAWN was called by [employer] [phone] saying to call them as two rehab's have put in request ([facility] and [facility]) DASHAWN informed that [facility] has been the chosen provider and never spoke to anyone at [facility]. Flower Stripper with [employer] informed DASHAWN that it's currently under review. DASHAWN provided contact information for help desk representative to call back once decision has been made. Charissa Murphy Phone [phone] 06/08/2022 ROAST * Heather Sethi - 06/08/2022 8:52 AM CST Internal Medicine Progress Note Patient: Kandace Cole (:1950) Room: [facility]/ Date of admission: 06/04/2022 No of [...] results for input(s): MG in the last 95342 hours. Phosphorus: Recent Labs Component Name 06/08/2221206/07/2222306/06/22 030 PHOS 2.5* 2.7* 3.2 Coagulation: No results for input(s): PT, INR, PTT in the last 27293 hours. Micro Microbiology Results (Displays last 21 [...] is HDS. Heather Sethi MS3 Internal Medicine ROAST Associated attestation - Ama Gonzalez MD - 06/08/2022 7:11 PM [facility] I have verified the documentation of the medical student. This note is for educational purposes only. Please refer to the resident's note for complete note for details and my assessment. Ama Gonzalez MD 06/08/2022 * Joey Dickens MD - 06/08/2022 5:50 AM CST [facility] Orthopedic Spine Surgery Daily Progress Note Kandace Cole, 72 year old, female : 1950 CSN: [id number] Primary Care Physician: Karrie Phillips MD, MD [...] for input(s): PT, INR in the last 08159 hours. No results for input(s): PTT in the last 16705 hours. Cultures No results found for this or any previous visit (from the past 248 hour(s)). Physical Exam General: Awake, alert, follows commands, in no acute distress Neck: - C-collar/[place] J: Present - Tenderness to palpation: Deferred [...] concerns Joey Dickens MD 06/08/2022 5:50 AM ROAST * Vivian Boo RN - 06/07/2022 10:43 [...] at normal rate and depth. Outcome: Progressing ROAST * Ama Gonzalez MD - 06/07/2022 10:38 [...] falls and polypharmacy, who was admitted to [facility] 06/04 for a planned cervical-thoracic posterior [...] Tammi Perez MD ??? saline nasal spray (Rocky Comfort; Baby Acton) 0.65 % nasal spray 2 spray 2 [...] input(s): PT, INR, APTT in the last 81409 hours. Recent Labs Component Name 03/09/23 0224 [...] and Palliative Medicine Attending 06/07/2022 10:39 PM ROAST * Makenzie Choi RN - 06/07/2022 6:28 [...] to allow for safe mobility Outcome: Progressing ROAST * Daniella Le PT - 06/07/2022 2:30 PM CST [facility] Physical Medicine and Rehabilitation Physical Therapy Progress Note Patient: Kandace Cole [facility] Record Number: [id number] Date of : 1950 Age: [age] year [...] (in C-collar) Spine Precautions: Yes Spine Precautions: Sullivan OBJECTIVE: At start of therapy session, patient [...] feet with minimal assist and appropriate AD Prison Goal(s): Patient to discharge to appropriate next [...] on , with call light within reach. ROAST * Sherrie Boyer, OT - 06/07/2022 1:48 PM CST [facility] Physical Medicine and Rehabilitation Occupational Therapy Progress Note Patient: Kandace Cole Med Record Number: [id number] Date of : 1950 Age: [age] year [...] to therapy; [facility] Assessment: Pain Location #1 [...] to chair with stand by assist ?? Prison Goal(s): Patient to discharge to appropriate next [...] light within reach, with RN, Migdalia aware. ROAST * Charissa Murphy - 06/07/2022 10:43 AM CST DASHAWN rec'd call from [facility] Keith) to say Cadence will be here to assess patient. If patient isin agreement to going, auth will be initiated. SW to wait for liaison to come and patient to make determination on rehab choice. ISELA Hensley Care Coordination Jacquard Fixer ROAST * Heather Sethi - 06/07/2022 10:12 AM CST Internal Medicine Progress Note Patient: Kandace Cole (:1950) Room: [facility] Date of admission: 06/04/2022 No of days [...] results for input(s): MG in the last 18461 hours. Phosphorus: Recent Labs Component Name 06/07/2222306/06/2230602/16/22 0757 PHOS 2.7* 3.2 3.9 Coagulation: No results for input(s): PT, INR, PTT in the last 44812 hours. Micro Microbiology Results (Displays last 21 [...] is HDS. Heather Sethi MS3 Internal Medicine ROAST Associated attestation - Ama Gonzalez MD - 06/07/2022 10:37 PM [facility] I have verified the documentation of the medical student. This note is for educational purposes only. Please refer to the resident's note for complete note for details and my assessment. Ama Gonzalez MD 06/07/2022 * Joey Dickens MD - 06/07/2022 5:31 AM CST [facility] Orthopedic Spine Surgery Daily Progress Note Kandace Cole, 72 year old, female : 1950 CSN: [id number] Primary Care Physician: Karrie Phillips MD, MD [...] for input(s): PT, INR in the last 74344 hours. No results for input(s): PTT in the last 36154 hours. Cultures No results found for this or any previous visit (from the past 248 hour(s)). Physical Exam General: Awake, alert, follows commands, in no acute distress Neck: - C-collar/[place] J: Present - Tenderness to palpation: Deferred [...] concerns Joey Dickens MD 06/07/2022 5:31 AM ROAST Associated attestation - Deon Taylor MD - 06/07/2022 4:44 PM [facility] I have seen and evaluated the patient [...] found in the flowsheet documentation) Outcome: Progressing ROAST * Annemarie Collazo COTA - 06/06/2022 3:59 PM CST [facility] Department of Physical Medicine & Rehabilitation Progress Note Patient: Kandace Cole Med Record Number: [id number] Date of : 1950 Age: [age] year old 06/06/22 1017 Missed Visit Missed Visit RN Cancel (Pt receiveing blood) ROAST * Heather Sethi - 06/06/2022 1:56 PM CST Internal Medicine Progress Note Patient: Kandace Cole (:1950) Room: [facility] Date of admission: 06/04/2022 No of days [...] results for input(s): MG in the last 25378 hours. Phosphorus: Recent Labs Component Name 06/06/2230602/16/22756 PHOS 3.2 3.9 Coagulation: No results for input(s): PT, INR, PTT in the last 44794 hours. Micro Microbiology Results (Displays last 21 [...] is HDS. Heather Sethi MS3 Internal Medicine ROAST Associated attestation - Ama Gonzalez MD - 06/06/2022 8:42 PM [facility] I have verified the documentation of the medical student. This note is for educational purposes only. Please refer to the resident's note for complete note for details and my assessment. Ama Gonzalez MD 06/06/2022 * Joanna Easley PT - 06/06/2022 10:00 AM CST [facility] Department of Physical Medicine & Rehabilitation Progress Note Patient: Kandace Cole Med Record Number: [id number] Date of : 1950 Age: [age] year old 06/06/22 1000 Missed Visit Missed Visit RN Cancel (Patient receiving blood) ROAST * Tammi Perez MD - 06/06/2022 9:01 AM CST Internal Medicine Progress Note Patient: Kandace Cole (:1950) Room: [facility] Date of admission: 06/04/2022 No of days [...] results for input(s): MG in the last 62006 hours. Phosphorus: Recent Labs Component Name 06/06/22 0307 02/16/22 0757 PHOS 3.2 3.9 Coagulation: No results for input(s): PT, INR, PTT in the last 35116 hours. Micro Microbiology Results (Displays last 21 [...] ? Tammi Perez MD PGY-3 Internal Medicine ROAST Associated attestation - Ama Gonzalez MD - 06/06/2022 9:13 PM [facility] I have verified the documentation of the [...] falls and polypharmacy, who was admitted to [facility] 06/04 for a planned cervical-thoracic posterior [...] 72 year old, female : 1950 CSN: [id number] Primary Care Physician: Karrie Phillips MD, MD [...] for input(s): PT, INR in the last 94719 hours. No results for input(s): PTT in the last 70809 hours. Cultures No results found for this or any previous visit (from the past 248 hour(s)). Physical Exam General: Awake, alert, follows commands, in no acute distress Neck: - C-collar/[place] J: Present - Tenderness to palpation: Deferred [...] concerns Joey Dickens MD 06/06/2022 8:08 AM ROAST Associated attestation - Deon Taylor MD - 06/06/2022 12:41 PM [facility] I have seen and evaluated the patient [...] to allow for safe mobility Outcome: Progressing ROAST * Slim Camacho RN - 06/05/2022 11:00 [...] to allow for safe mobility Outcome: Progressing ROAST * Tammi Perez MD - 06/05/2022 4:34 PM CST Internal Medicine Progress Note Patient: Kandace Cole (:1950) Room: [facility] Date of admission: 06/04/2022 No of days [...] results for input(s): MG in the last 55563 hours. Phosphorus: Recent Labs Component Name 02/16/22 0757 PHOS 3.9 Coagulation: No results for input(s): PT, INR, PTT in the last 18249 hours. Micro Microbiology Results (Displays last 21 [...] ? Tammi Perez MD PGY-3 Internal Medicine ROAST Associated attestation - Ama Gonzalez MD - 06/05/2022 8:56 PM [facility] I have verified the documentation of the [...] falls and polypharmacy, who was admitted to [facility] 06/04 for a planned cervical-thoracic posterior [...] patient's preference is to stay within the [facility] and its affiliates.: Unsure Comments: Lives with: Other (Comment) (Grandson) Physical Limitations: None Independent with the use of a ww Requires Assistance With: None Preferred Pharmacy: [facility] [address] [facility] [address] [address] [facility] [id number] Advance Directive: No Advance Directive Information Given: Not Applicable Would you like assistance on completing and executing or revising an Advance Directive?: No Payer/Plan Subscriber Name Rel Member # Group # [facility] MANAGED MEDICARE * KANDACE COLE Mark [id number] [address] [address] 16 at 4:08 PM 06/05/2022. Met with patient Family Support (name and phone): Extended Emergency Contact Information Primary Emergency Contact: BARBARA CISNEROS Mobile Relation: Brother Secondary Emergency Contact: Barbara Cisneros Address: [place], [place] Relation: Other Patient or help desk representative requests care coordination reach out to family or caregiver listed above regarding discharge planning and at time of discharge? Yes grandson Patient/Family provided with list of resources? Unknown Preferred Provider / High Quality Network List given?: Unknown Reason for provider choice: Unknown Equipment at Home: Chair-Shower;Grab Bars;Cane-Small Base Quad;Walker-2 Wheeled;Walker-4 Wheeled with Seat List DME pt. requires but does not have.: None Jacquard Fixer Referral: Yes -Placement Will continue to follow. For any questions or needs please contact: Promotion Producer Name/Phone number: Camym Aleman RN Case cost and risk analysis manager: [phone] 06/05/2022 ROAST * Heather Sethi - 06/05/2022 2:44 PM CST Internal Medicine Progress Note Patient: Kandace Cole (:1950) Room: [facility] Date of admission: 06/04/2022 No of days [...] results for input(s): MG in the last 49053 hours. Phosphorus: Recent Labs Component Name 02/16/22 0757 PHOS 3.9 Coagulation: No results for input(s): PT, INR, PTT in the last 04430 hours. Micro Microbiology Results (Displays last 21 [...] is HDS. Heather Sethi MS3 Internal Medicine ROAST Associated attestation - Ama Gonzalez MD - 06/05/2022 11:04 PM [facility] I have verified the documentation of the [...] Achieves restful, refreshing sleep pattern. Outcome: Progressing ROAST * Sandra Brown, PT - 06/05/2022 10:27 AM CST [facility] Physical Medicine and Rehabilitation Physical Therapy Initial Evaluation Note Patient: Kandace Cole [facility] Record Number: [id number] Date of : 1950 Age: [age] year [...] closed fractures of facial bone, initial encounter ([facility]) Abdominal pain Abnormal serum creatinine level Anemia Ferrell's esophagus Cardiomegaly Chronic kidney disease Chronic obstructive pulmonary disease ([facility]) Chronic depression Dyspnea on exertion Benign essential hypertension Glaucoma Hyperkalemia Hyposmolality Hyperthyroidism Hypothyroidism Intractable chronic migraine without aura Iron deficiency anemia Leukocytosis Macular degeneration Migraine Ulnar neuropathy Type 2 diabetes mellitus ([facility]) Type 2 diabetes mellitus with stage 3 chronic kidney disease, without long-term current use of insulin ([facility]) Temporomandibular joint disorder Systemic sclerosis ([facility] [facility] Sprain of ankle Sciatica Recurrent major depression in remission ([facility]) Raynaud's disease Primary fibromyalgia syndrome Polyp of [...] feet with minimal assist and appropriate AD Bridge/Structure Inspection Team Leader Goal(s): Patient to discharge to appropriate next [...] reach, with RNMigdalia, aware. All lines intact. ROAST * Olimpia Adames, OT - 06/05/2022 10:22 AM CST [facility] Physical Medicine and Rehabilitation Occupational Therapy Initial Evaluation Note Patient: Kandace Cole Med Record Number: [id number] Date of : 1950 Age: [age] year [...] closed fractures of facial bone, initial encounter ([facility]/HCC) Abdominal pain Abnormal serum creatinine level Anemia Ferrell's esophagus Cardiomegaly Chronic kidney disease Chronic obstructive pulmonary disease (CMS/HCC) Chronic depression Dyspnea on exertion Benign essential hypertension Glaucoma Hyperkalemia Hyposmolality Hyperthyroidism Hypothyroidism Intractable chronic migraine without aura Iron deficiency anemia Leukocytosis Macular degeneration Migraine Ulnar neuropathy Type 2 diabetes mellitus ([facility]/HCC) Type 2 diabetes mellitus with stage 3 chronic kidney disease, without long-term current use of insulin ([facility]/HCC) Temporomandibular joint disorder Systemic sclerosis ([facility]) Sprain of ankle Sciatica Recurrent major depression in remission ([facility]) Raynaud's disease Primary fibromyalgia syndrome Polyp of colon Perineal pain Paronychia of toe of right foot Onychomycosis of toenail Nonexudative 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 Nausea Multiple bruises Mixed hyperlipidemia Mixed collagen vascular disease ([facility]) Past Medical History: Diagnosis Date ??? Anemia ??? Ferrell's esophagus ??? CKD (chronic kidney disease), stage III ([facility]) ??? Diabetes ??? Disease of esophagus ??? [...] bed to chair with stand by assist Prison Goal(s): Patient to discharge to appropriate next [...] light within reach, with Migdalia HANCOCK aware. ROAST * Joey Dickens MD - 06/05/2022 6:53 AM CST [facility] Orthopedic Spine Surgery Daily Progress Note Kandace Cole, 72 year old, female : 1950 CSN: [id number] Primary Care Physician: Karrie Phillips MD, MD [...] for input(s): PT, INR in the last 55559 hours. No results for input(s): PTT in the last 56298 hours. Cultures No results found for this or any previous visit (from the past 248 hour(s)). Physical Exam General: Awake, alert, follows commands, in no acute distress Neck: - C-collar/[place] J: Present - Tenderness to palpation: Deferred [...] concerns Joey Dickens MD 06/05/2022 6:53 AM ROAST Associated attestation - Deon Taylor MD - 06/05/2022 4:23 PM [facility] I have seen and evaluated the patient [...] Achieves restful, refreshing sleep pattern. Outcome: Progressing ROAST * Yaritza Lynch RN - 06/04/2022 2:46 [...] Achieves restful, refreshing sleep pattern. Outcome: Progressing ROAST * Padma Morales MD - 06/04/2022 11:51 [...] Activity: as tolerated from ortho perspective in Sullivan collar 2. PT/OT 3. Pain Control- oral medications 4. DVT Prophylaxis: ambulation, SCDs 5. Drains? HV x1 6. Continue perioperative ancef 7. Admit to floor under Ortho Spine 8. Please page Ortho Spine with any additional questions or concerns Padma Morales MD 06/04/2022 4:23 PM ROAST documented in this encounter H&P Notes * Padma Morales MD - 06/04/2022 5:28 AM CST Orthopedic Spine Surgery H&P Note Kandace Cole, 72 year old, female : 1950 CSN: [id number] Diagnosis/Procedures 1.) Cervical myelopathy Today's Date: 06/04/2022 [...] concerns Padma Morales MD 06/04/2022 5:28 AM ROAST Associated attestation - Deon Taylor MD - 06/04/2022 7:15 AM [facility] I have seen and evaluated the patient and agree with the resident's assessment and plan as stated above. I have independently reviewed all imaging studies. Deon Taylor MD documented in this encounter Consult Notes * Charissa Murphy - 06/06/2022 4:02 PM CSTAssociated Order(s): IP CONSULT TO [employer] SW newly assigned and following for placement and disposition. SW acknowledge referral for placement in facility. SW was informed that patient will need rehab. SW made referrals. Continued Care and Services - Admitted Since 06/04/2022 Destination Service Provider Request Status Selected Services Address Phone Fax Patient [facility] - ACUTE REHAB Pending - Request Sent N/A [phone] [facility] [phone] -- [facility] ([facility]) Pending - Request Sent N/A [id number] [facility] [address] [phone] -- ISELA Hensley Care Coordination Jacquard Fixer ROAST * Matilda Bailon RD/CHUY - 06/05/2022 1:28 [...] Pain affecting intake: No Estimated Needs: KCAL: 8675-6301 (25-30 kcal/kg ABW) Protein (g): 90 (1.5 [...] Goal Progress: New goal established Ascom: 4533 ROAST * Adolph Juarez, SHOVEL OPERATOR-SURVEY WORKERS SUPERVISOR - 06/04/2022 2:17 PM CSTAssociated Order(s): IP [...] Lives at home with grandson in [facility]. Does not smoke or drink. [...] 200 MG tablet ??? saline nasal spray (Rocky Comfort; Baby Acton) 0.65 % nasal spray RCS: Memory very [...] mouth once daily ??? saline nasal spray (Rocky Comfort; Baby Acton) 0.65 % nasal spray [place] 1 (one) spray into each nostril as [...] input(s): PT, INR, APTT in the last 17567 hours. Cardiac markers: Recent Labs Component Name [...] Juarez, ANP-, Geriatrics 06/04/2022 2:17 PM Pager: [phone] ROAST Associated attestation - Dorothy Stahl MD - 06/04/2022 10:04 PM [facility] I have verified the documentation of the HEALTH SCIENCE SPECIALIST including all history, exam, and medical decision-making [...] Lives at home with grandson in [facility]. Does not smoke or drink. [...] (SEROquel) 200 MG tablet saline nasal spray (Rocky Comfort; Baby Acton) 0.65 % nasal spray RCS: Memory very [...] by mouth once daily saline nasal spray (Rocky Comfort; Baby Acton) 0.65 % nasal spray [place] 1 (one) spray into each nostril as [...] input(s): PT, INR, APTT in the last 87778 hours. Cardiac markers: Recent Labs Component Name [...] -Falls/Aspiration precautions. -Rest of plan per HEALTH SCIENCE SPECIALIST note. Thank you for this consult. We will continue to follow along with you. Please call with questions. Keely Stahl MD Geriatric attending Pager: [phone] documented in this encounter OR Notes * Brief Op Note - Padma Morales MD - 06/04/2022 8:42 AM CST Brief Op Note Procedure: C5-C6 laminectomy, C4-T2 posterior instrumented spinal fusion Patient Name: Kandace Cole Date of Service: 06/04/2022 Pre-Op Diagnosis: cervical myelopathy Post-Op Diagnosis: Same as above Surgeon(s) and Role: * Deon Taylor MD - Primary Ordnance Keeper(s): Padma Morales MD - Resident - Assisting [...] Implant Name Type Inv. Item Serial No. Analog Ic Design Engineer Lot No. LRB No. Used Action Jean Bone Void 10Ml Dbm Grftn Algrf Ptty Jean Bone Void 10Ml Dbm Grftn Algrf Ptty Med[employer] Inc [id number] N/A 1 Implanted Jean Bone Void 10Ml Dbm Grftn Algrf Ptty Jean Bone Void 10Ml Dbm Grftn Algrf Ptty Medtronic Inc [id number] N/A 1 Implanted Graft Bone Canc 4-9.5Mm 15Cc Frzdr Chp Graft Bone Canc 4-9.5Mm 15Cc Frzdr Chp Allosource [id number]/A 1 Implanted Graft Bone Canc 4-9.5Mm 30Cc Algrf Frzdr Graft Bone Canc 4-9.5Mm 30Cc Algrf Frzdr [employer]ource [id number] N/A 1 Implanted 3.5 x 14mm screw Synthes Spine N/A 4 Implanted 4.0x 20mm screw Synthes Spine N/A 2 Implanted 5.0 x 24mm screw Synthes Spine N/A 2 Implanted 4.5 x 26mm screw Synthes Spine N/A 2 Implanted screw caps Synthes Spine N/A 10 Implanted 90mm rods Synthes Spine N/A 2 Implanted Padma Morales MD ROAST * Operative - Deon Taylor MD - 06/04/2022 8:42 AM CST Kandace Maria Douglas 1950 Date of Surgery 06/04/22 PREOPERATIVE DIAGNOSIS: cervical myelopathy POSTOPERATIVE DIAGNOSIS: same PROCEDURES: 1. Cervical Laminectomy C5/6 with partial medial facetectomies (22200) 2. Posterior Arthrodesis C4-T2 (89779, 45955m2) 3. Posterior instrumentation C4-T2 (72370) 4. Application of local autograft and allograft (, ) 5. Application and removal of cranial tongs () SURGEON: Deon Taylor MD TECHNICAL SALES ADVISOR: Varun Matute MD ANESTHESIA: General. COMPLICATIONS: None. [...] for further surgery, blood clots, PE, stroke, NM,paralysis, . After we reviewed of the risks [...] the appropriate lines and leads were placed Naik-Pencil You In tongs were positioned over the center rotation [...] SSEPs remained stable throughout. Deon Taylor MD ROAST documented in this encounter Plan of Treatment Upcoming Encounters Date Type Department Care Team (Late st Contact Info) Description 06/02/2024 1:45 PM [facility] Office Visit [facility] - Orthopedics [address] [place] [address], [place] [address] Deon Taylor MD [address] [place] [id number] documented as of this encounter Procedures Procedure Name Priority Date/Time Associated Diagnosis Comments XR THORACIC SPINE 2VW Routine 07/18/2022 11:04 AM CDT Degeneration of cervical intervertebral disc GLUCOSE - POINT OF CARE Routine 06/08/2022 7:47 AM [facility] CBC W/O DIFFERENTIAL Routine 06/08/2022 2:13 AM [facility] Degeneration of cervical intervertebral disc BASIC METABOLIC PANEL (CALCIUM TOTAL) Routine 06/08/2022 2:13 AM [facility] Degeneration of cervical intervertebral disc PHOSPHORUS BLOOD Routine 06/08/2022 2:13 AM [facility] MAGNESIUM BLOOD Routine 06/08/2022 2:13 AM [facility] GLUCOSE - POINT OF CARE Routine 06/07/2022 11:25 PM [facility] GLUCOSE - POINT OF CARE Routine 06/07/2022 9:31 PM [facility] GLUCOSE - POINT OF CARE Routine 06/07/2022 5:52 PM [facility] GLUCOSE - POINT OF CARE Routine 06/07/2022 12:00 PM [facility] GLUCOSE - POINT OF CARE Routine 06/07/2022 8:21 AM [facility] CBC W/O DIFFERENTIAL Routine 06/07/2022 2:24 AM [facility] Degeneration of cervical intervertebral disc BASIC METABOLIC PANEL (CALCIUM TOTAL) Routine 06/07/2022 2:24 AM [facility] Degeneration of cervical intervertebral disc PHOSPHORUS BLOOD Routine 06/07/2022 2:24 AM [facility] MAGNESIUM BLOOD Routine 06/07/2022 2:24 AM [facility] GLUCOSE - POINT OF CARE Routine 06/06/2022 8:38 PM [facility] GLUCOSE - POINT OF CARE Routine 06/06/2022 5:02 PM [facility] GLUCOSE - POINT OF CARE Routine 06/06/2022 12:26 PM [facility] TRANSFUSE RED BLOOD CELL LEUKOREDUCED UNIT(S) Routine 06/06/2022 9:42 AM [facility] PREPARE RBC LEUKOREDUCED UNIT Routine 06/06/2022 9:36 AM [facility] GLUCOSE - POINT OF CARE Routine 06/06/2022 8:00 AM [facility] PTH INTACT W/O CALCIUM AM Draw 06/06/2022 3:07 AM [facility] HEMOGLOBIN A1C Routine 06/06/2022 3:07 AM [facility] VITAMIN D 25-HYDROXY AM Draw 06/06/2022 3:07 AM [facility] CBC W/O DIFFERENTIAL Routine 06/06/2022 3:07 AM [facility] Degeneration of cervical intervertebral disc BASIC METABOLIC PANEL (CALCIUM TOTAL) Routine 06/06/2022 3:07 AM [facility] Degeneration of cervical intervertebral disc PHOSPHORUS BLOOD Routine 06/06/2022 3:07 AM [facility] MAGNESIUM BLOOD Routine 06/06/2022 3:07 AM [facility] FOLATE Routine 06/06/2022 3:07 AM [facility] VITAMIN B12 AM Draw 06/06/2022 3:07 AM [facility] IRON + TRANSFERRIN PANEL Routine 06/06/2022 3:07 AM [facility] FERRITIN Routine 06/06/2022 3:07 AM [facility] GLUCOSE - POINT OF CARE Routine 06/05/2022 8:51 PM [facility] GLUCOSE - POINT OF CARE Routine 06/05/2022 5:59 PM [facility] GLUCOSE - POINT OF CARE Routine 06/05/2022 4:27 PM [facility] GLUCOSE - POINT OF CARE Routine 06/05/2022 12:37 PM [facility] CBC W/O DIFFERENTIAL Timed 06/05/2022 12:32 PM [facility] XR CERVICAL SPINE 2 OR 3VW Routine 06/05/2022 9:35 AM [facility] Degeneration of cervical intervertebral disc GLUCOSE - POINT OF CARE Routine 06/05/2022 8:39 AM [facility] CBC W/O DIFFERENTIAL Routine 06/05/2022 4:58 AM [facility] Degeneration of cervical intervertebral disc BASIC METABOLIC PANEL (CALCIUM TOTAL) Routine 06/05/2022 4:58 AM [facility] Degeneration of cervical intervertebral disc GLUCOSE - POINT OF CARE Routine 06/04/2022 8:20 PM [facility] GLUCOSE - POINT OF CARE Routine 06/04/2022 11:51 AM [facility] FL JOSÉ LUIS SURGERY STAT 06/04/2022 11:30 AM [facility] Degeneration of cervical intervertebral disc FUSION POSTERIOR CERVICAL (PCF) 06/04/2022 8:42 AM [facility] Cervical myelopathy (HCC) Case Notes LATEX ALLERGY Special Needs PRONE, C-ARM CERVICAL ATTACHMENT JULIETH DONALD NEURO MONITORING POWER:4mm jose, 4mm cutter, 2mm cutter DEPUY: DELILAH MCGINNIS [phone]; [place] [phone]--reps notified mk 06/01 GLUCOSE - POINT OF CARE Routine 06/04/2022 6:39 AM [facility] TYPE + SCREEN PANEL MARLEE 06/04/2022 6:39 AM [facility] Preop examination documented in this encounter Results [...] MD on 07/18/2022 11:31 AM Lyla Blackwell SHOVEL OPERATOR-SURVEY WORKERS SUPERVISOR DIAGNOSTIC IMAG ING ORDERABLES * GLUCOSE - POINT OF CARE (06/08/2022 7:47 AM [facility]) Glucose WB/POC 95 70 - 115 mg/dL 06/08/2022 7:48 AM [facility] Specimen Type Arterial 06/08/2022 7:48 AM [facility] Blood BLOOD SPECIMEN / Unknown 06/08/2022 7:47 AM [facility] 06/08/2022 7:48 AM [facility] Ama Gonzalez MD LAB - POINT OF C ARE ORDERABLES [address] [address], [facility] [phone] * (ABNORMAL) PHOSPHORUS BLOOD (06/08/2022 2:13 AM [facility]) Phosphorus 2.5(L) 2.9 - 5.1 mg/dL 06/08/2022 3:12 AM [facility] Blood BLOOD SPECIMEN / Unknown Lab Venipuncture / Unknown 06/08/2022 2:13 AM [facility] 06/08/2022 2:44 AM [facility] Ama Gonzalez MD LAB - CHEMISTRY ORDERABLES [address] [address], [place] [phone] * MAGNESIUM BLOOD (06/08/2022 2:13 AM [facility]) Pathologist [facility] Magnesium 1.7 1.6 - 2.6 mg/dL 06/08/2022 3:12 AM [facility] Blood BLOOD SPECIMEN / Unknown Lab Venipuncture / Unknown 06/08/2022 2:13 AM [facility] 06/08/2022 2:44 AM [facility] Ama Gonzalez MD LAB - CHEMISTRY ORDERABLES [facility] [address] [place] [address], [facility] [phone] * (ABNORMAL) CBC W/O DIFFERENTIAL (06/08/2022 2:13 AM [facility]) [facility] WBC 9.2 3.5 - 10.5 10? 3 /uL 06/08/2022 2:54 AM [facility] RBC 2.64(L) 3.80 - 5.20 10? 6 /uL 06/08/2022 2:54 AM [facility] Hemoglobin 7.9(L) 12.0 - 15.6 g/dL 06/08/2022 2:54 AM [facility] Hematocrit 23.9(L) 35.0 - 45.0 % 06/08/2022 2:54 AM [facility] MCV 90.5 80.7 - 98.3 fL 06/08/2022 2:54 AM [facility] MCH 29.9 26.7 - 34.0 pg 06/08/2022 2:54 AM [facility] MCHC 33.1 30.8 - 35.9 g/dL 06/08/2022 2:54 AM [facility] RDW-SD 44.6 36.0 - 50.0 fL 06/08/2022 2:54 AM [facility] RDW-CV 13.4 11.2 - 14.8 % 06/08/2022 2:54 AM [facility] Platelet Count 287 150 - 400 10? 3 /uL 06/08/2022 2:54 AM [facility] MPV 10.1 9.4 - 12.9 fL 06/08/2022 2:54 AM [facility] nRBC Absolute 0.00 0 10? 3 /uL 06/08/2022 2:54 AM [facility] nRBC Auto 0.0 0 /100 WBC 06/08/2022 2:54 AM [facility] Blood BLOOD SPECIMEN / Unknown Lab Venipuncture / Unknown 06/08/2022 2:13 AM [facility] 06/08/2022 2:43 AM [facility] Deon Taylor MD LAB - HEMATOLOGY ORD ERABLES [facility] [address] [place] [address], [facility] [phone] * (ABNORMAL) BASIC METABOLIC PANEL (CALCIUM TOTAL) (06/08/2022 2:13 AM [facility]) BUN 25 7 - 26 mg/dL 06/08/2022 3:12 AM [facility] Creatinine 1.30(H) 0.56 - 0.96 mg/dL 06/08/2022 3:12 AM [facility] Sodium 132(L) 136 - 145 mmol/L 06/08/2022 3:12 AM [facility] Potassium 5.4(H) 3.5 - 4.5 mmol/L 06/08/2022 3:12 AM [facility] Chloride 97(L) 98 - 107 mmol/L 06/08/2022 3:12 AM [facility] CO2 24 22 - 29 mmol/L 06/08/2022 3:12 AM [facility] Glucose 97 70 - 115 mg/dL 06/08/2022 3:12 AM [facility] Calcium 8.4 8.4 - 10.2 mg/dL 06/08/2022 3:12 AM [facility] Anion Gap 16 8 - 18 06/08/2022 3:12 AM [facility] BUN/Creatinine Ratio 19 7 - 23 06/08/2022 3:12 AM [facility] Osmolality Calculated 278 270 - 300 mOsm/kg 06/08/2022 3:12 AM [facility] eGFR by CKD-EPI 44(L) >=90 mL/min/1.7 3 m2 06/08/2022 3:12 AM [facility] Blood BLOOD SPECIMEN / Unknown Lab Venipuncture / Unknown 06/08/2022 2:13 AM [facility] 06/08/2022 2:44 AM [facility] Deon Taylor MD LAB - CHEMISTRY CHELO QUIGLEY [address] [address], [place] [phone] * GLUCOSE - POINT OF CARE (06/07/2022 11:25 PM [facility]) Glucose WB/POC 94 70 - 115 mg/dL 06/08/2022 4:12 PM [facility] Specimen Type Cap Fingerstick 2022 4:12 PM [facility] Blood BLOOD SPECIMEN / Unknown 06/07/2022 11:25 PM [facility] 06/08/2022 4:12 PM [facility] Ama Gonzalez MD LAB - POINT OF C ARE ORDERABLES [address] [address], [place] [phone] * GLUCOSE - POINT OF CARE (06/07/2022 9:31 PM [facility]) Glucose WB/POC 82 70 - 115 mg/dL 06/07/2022 9:36 PM [facility] Specimen Type Cap Fingerstick 2022 9:36 PM [facility] Blood BLOOD SPECIMEN / Unknown 06/07/2022 9:31 PM [facility] 06/07/2022 9:36 PM [facility] Ama Gonzalez MD LAB - POINT OF C ARE ORDERABLES [address] [address], [place] [phone] * GLUCOSE - POINT OF CARE (06/07/2022 5:52 PM [facility]) Glucose WB/POC 103 70 - 115 mg/dL 06/07/2022 5:52 PM [facility] Specimen Type Arterial 06/07/2022 5:52 PM [facility] Blood BLOOD SPECIMEN / Unknown 06/07/2022 5:52 PM [facility] 06/07/2022 5:52 PM [facility] Ama Gonzalez MD LAB - POINT OF ARE ORDERABLES Performing Organization Address City/[facility]/ZIP Co de Phone Number [address] [address], [place] [phone] * (ABNORMAL) GLUCOSE - POINT OF CARE (06/07/2022 12:00 PM [facility]) Glucose WB/POC 153(H) 70 - 115 mg/dL 06/07/2022 12:04 PM [facility] Specimen Type Cap Fingerstick 2022 12:04 PM [facility] Blood BLOOD SPECIMEN / Unknown 06/07/2022 12:00 PM [facility] 06/07/2022 12:04 PM [facility] Ama Gonzalez MD LAB - POINT OF ARE ORDERABLES Performing Organization Address City/[facility]/ZIP Co de Phone Number [address] [address], [place] [phone] * GLUCOSE - POINT OF CARE (06/07/2022 8:21 AM [facility]) Glucose WB/POC 91 70 - 115 mg/dL 06/07/2022 8:24 AM [facility] Specimen Type Cap Fingerstick 2022 8:24 AM [facility] Blood BLOOD SPECIMEN / Unknown 06/07/2022 8:21 AM [facility] 06/07/2022 8:24 AM [facility] Ama Gonzalez MD LAB - POINT OF C ARE ORDERABLES [address] [address], [place] [phone] * (ABNORMAL) PHOSPHORUS BLOOD (06/07/2022 2:24 AM [facility]) Pathologist [facility] Phosphorus 2.7(L) 2.9 - 5.1 mg/dL 06/07/2022 3:34 AM [facility] Blood BLOOD SPECIMEN / Unknown Lab Venipuncture / Unknown 06/07/2022 2:24 AM [facility] 06/07/2022 3:01 AM [facility] Ama Gonzalez MD LAB - CHEMISTRY ORDERABLES Performing Organization Address City/[facility]/ZIP Co de Phone Number [address] [address], [place] [phone] * MAGNESIUM BLOOD (06/07/2022 2:24 AM [facility]) [facility] Magnesium 2.1 1.6 - 2.6 mg/dL 06/07/2022 3:34 AM [facility] Blood BLOOD SPECIMEN / Unknown Lab Venipuncture / Unknown 06/07/2022 2:24 AM [facility] 06/07/2022 3:01 AM [facility] Ama Gonzalez MD LAB - CHEMISTRY ORDERABLES Performing Organization Address City/[facility]/ZIP Co de Phone Number [address] [address], [place] [phone] * (ABNORMAL) CBC W/O DIFFERENTIAL (06/07/2022 2:24 AM [facility]) Pathologist [facility] WBC 11.8(H) 3.5 - 10.5 10? 3 /uL 06/07/2022 3:19 AM [facility] RBC 2.85(L) 3.80 - 5.20 10? 6 /uL 06/07/2022 3:19 AM [facility] Hemoglobin 8.5(L) 12.0 - 15.6 g/dL 06/07/2022 3:19 AM [facility] Hematocrit 25.2(L) 35.0 - 45.0 % 06/07/2022 3:19 AM [facility] MCV 88.4 80.7 - 98.3 fL 06/07/2022 3:19 AM [facility] MCH 29.8 26.7 - 34.0 pg 06/07/2022 3:19 AM [facility] MCHC 33.7 30.8 - 35.9 g/dL 06/07/2022 3:19 AM [facility] RDW-SD 43.3 36.0 - 50.0 fL 06/07/2022 3:19 AM [facility] RDW-CV 13.2 11.2 - 14.8 % 06/07/2022 3:19 AM [facility] Platelet Count 291 150 - 400 10? 3 /uL 06/07/2022 3:19 AM [facility] MPV 10.0 9.4 - 12.9 fL 06/07/2022 3:19 AM [facility] nRBC Absolute 0.00 0 10? 3 /uL 06/07/2022 3:19 AM [facility] nRBC Auto 0.0 0 /100 WBC 06/07/2022 3:19 AM [facility] Blood BLOOD SPECIMEN / Unknown Lab Venipuncture / Unknown 06/07/2022 2:24 AM [facility] 06/07/2022 3:01 AM [facility] Deon Taylor MD LAB - HEMATOLOGY ORD ERABLES Performing Organization Address [facility] Co de Phone Number [address] [address], [facility] [phone] * (ABNORMAL) BASIC METABOLIC PANEL (CALCIUM TOTAL) (06/07/2022 2:24 AM [facility]) BUN 25 7 - 26 mg/dL 06/07/2022 3:34 AM [facility] Creatinine 1.26(H) 0.56 - 0.96 mg/dL 06/07/2022 3:34 AM [facility] Sodium 130(L) 136 - 145 mmol/L 06/07/2022 3:34 AM [facility] Potassium 5.3(H) 3.5 - 4.5 mmol/L 06/07/2022 3:34 AM [facility] Chloride 102 98 - 107 mmol/L 06/07/2022 3:34 AM [facility] CO2 24 22 - 29 mmol/L 06/07/2022 3:34 AM [facility] Glucose 121(H) 70 - 115 mg/dL 06/07/2022 3:34 AM [facility] Calcium 8.8 8.4 - 10.2 mg/dL 06/07/2022 3:34 AM [facility] Anion Gap 9 8 - 18 06/07/2022 3:34 AM [facility] BUN/Creatinine Ratio 20 7 - 23 06/07/2022 3:34 AM [facility] Osmolality Calculated 276 270 - 300 mOsm/kg 06/07/2022 3:34 AM [facility] eGFR by CKD-EPI 45(L) >=90 mL/min/1.7 3 m2 06/07/2022 3:34 AM [facility] Blood BLOOD SPECIMEN / Unknown Lab Venipuncture / Unknown 06/07/2022 2:24 AM [facility] 06/07/2022 3:01 AM [facility] Deon Taylor MD LAB - CHEMISTRY CHELO QUIGLEY [facility] [address] [place] [address], [facility] [phone] * (ABNORMAL) GLUCOSE - POINT OF CARE (06/06/2022 8:38 PM [facility]) Glucose WB/POC 137(H) 70 - 115 mg/dL 06/06/2022 8:39 PM [facility] Specimen Type Cap Fingerstick 2022 8:39 PM [facility] Blood BLOOD SPECIMEN / Unknown 06/06/2022 8:38 PM [facility] 06/06/2022 8:39 PM [facility] Ama Gonzalez MD LAB - POINT OF C ARE ORDERABLES [address] [address], [place] [phone] * (ABNORMAL) GLUCOSE - POINT OF CARE (06/06/2022 5:02 PM [facility]) Glucose WB/POC 241(H) 70 - 115 mg/dL 06/06/2022 5:03 PM [facility] Specimen Type Arterial 06/06/2022 5:03 PM [facility] Blood BLOOD SPECIMEN / Unknown 06/06/2022 5:02 PM [facility] 06/06/2022 5:03 PM [facility] Ama Gonzalez MD LAB - POINT [facility] ARE ORDERABLES Performing Organization Address City/[facility]/ZIP Co de Phone Number [address] [address], [place] [phone] * (ABNORMAL) GLUCOSE - POINT OF CARE (06/06/2022 12:26 PM [facility]) Glucose WB/POC 165(H) 70 - 115 mg/dL 06/06/2022 12:27 PM [facility] Specimen Type Arterial 06/06/2022 12:27 PM [facility] Blood BLOOD SPECIMEN / Unknown 06/06/2022 12:26 PM [facility] 06/06/2022 12:27 PM [facility] Ama Gonzalez MD LAB - POINT [facility] ARE ORDERABLES [address] [address], [place] [phone] * TRANSFUSE RED BLOOD CELL LEUKOREDUCED UNIT(S) (06/06/2022 12:20 PM [facility]) Ama Gonzalez MD NURSING - BLOOD PROD TRANSFUSION * TRANSFUSE RED BLOOD CELL LEUKOREDUCED UNIT(S), 1 Units (06/06/2022 12:20 PM [facility]) Ama Gonzalez MD NURSING - BLOOD PROD TRANSFUSION * PREPARE (CROSSMATCH) RBC UNIT(S), 1 Units (06/06/2022 9:36 AM [facility]) Unit Description AS1 LR PRBC [facility] Unit ABO A [facility] Unit Rh POS [facility] Product Number R02 [facility] B LOOD [facility] LAB Unit Donor # [id number] [facility] Unit Status transfused [facility] Product Code [id number] [facility] Blood Type Barcode 6200 [facility] Expiration Date [id number] S BLOOD BANK LAB Blood Bank BLOOD SPECIMEN / Unknown 06/04/2022 6:44 [address] [facility] Ama Gonzalez MD LAB - BLOOD BANK ORDERABLES [facility] [address] [place] [address], [place] [phone] * (ABNORMAL) GLUCOSE - POINT OF CARE (06/06/2022 8:00 AM [facility]) Glucose WB/POC 125(H) 70 - 115 mg/dL 06/06/2022 8:01 [address] [facility] Specimen Type Arterial 06/06/2022 8:01 AM [facility] Blood BLOOD SPECIMEN / Unknown 06/06/2022 8:00 AM [facility] 06/06/2022 8:01 AM [facility] Ama Gonzalez MD LAB - POINT OF C ARE ORDERABLES [facility] [address] [place] [address], [place] [phone] * PHOSPHORUS BLOOD (06/06/2022 3:07 AM [facility]) Phosphorus 3.2 2.9 - 5.1 mg/dL 06/06/2022 4:03 [address] [facility] Blood BLOOD SPECIMEN / Unknown Lab Venipuncture / Unknown 06/06/2022 3:07 AM [facility] 06/06/2022 3:29 AM [facility] Ama Gonzalez MD LAB - CHEMISTRY ORDERABLES [address] [address], [facility] [phone] * MAGNESIUM BLOOD (06/06/2022 3:07 AM [facility]) Magnesium 1.6 1.6 - 2.6 mg/dL 06/06/2022 4:03 AM [facility] Blood BLOOD SPECIMEN / Unknown Lab Venipuncture / Unknown 06/06/2022 3:07 [facility] 06/06/2022 3:29 AM [facility] Ama Gonzalez MD LAB - CHEMISTRY ORDERABLES [address] [address], [facility] [phone] * (ABNORMAL) CBC W/O DIFFERENTIAL (06/06/2022 3:07 AM [facility]) WBC 8.5 3.5 - 10.5 10? 3 /uL 06/06/2022 3:32 AM [facility] RBC 2.26(L) 3.80 - 5.20 10? 6 /uL 06/06/2022 3:32 AM [facility] Hemoglobin 6.7(L) 12.0 - 15.6 g/dL 06/06/2022 3:32 AM [facility] Hematocrit 20.8(L) 35.0 - 45.0 % 06/06/2022 3:32 AM [facility] MCV 92.0 80.7 - 98.3 fL 06/06/2022 3:32 AM [facility] MCH 29.6 26.7 - 34.0 pg 06/06/2022 3:32 AM [facility] MCHC 32.2 30.8 - 35.9 g/dL 06/06/2022 3:32 AM [facility] RDW-SD 43.7 36.0 - 50.0 fL 06/06/2022 3:32 AM [facility] RDW-CV 13.2 11.2 - 14.8 % 06/06/2022 3:32 AM [facility] Platelet Count 254 150 - 400 10? 3 /uL 06/06/2022 3:32 AM [facility] MPV 9.7 9.4 - 12.9 fL 06/06/2022 3:32 AM [facility] nRBC Absolute 0.00 0 10? 3 /uL 06/06/2022 3:32 AM [facility] nRBC Auto 0.0 0 /100 WBC 06/06/2022 3:32 AM [facility] Blood BLOOD SPECIMEN / Unknown Lab Venipuncture / Unknown 06/06/2022 3:07 AM [facility] 06/06/2022 3:29 AM [facility] Deon Taylor MD LAB - HEMATOLOGY ORD ERABLES Performing Organization Address [facility] Co de Phone Number [address] [address] [phone] * (ABNORMAL) BASIC METABOLIC PANEL (CALCIUM TOTAL) (06/06/2022 3:07 AM [facility]) BUN 25 7 - 26 mg/dL 06/06/2022 4:03 AM [facility] Creatinine 1.34(H) 0.56 - 0.96 mg/dL 06/06/2022 4:03 AM [facility] Sodium 129(L) 136 - 145 mmol/L 06/06/2022 4:03 AM [facility] Potassium 4.6(H) 3.5 - 4.5 mmol/L 06/06/2022 4:03 AM [facility] Chloride 100 98 - 107 mmol/L 06/06/2022 4:03 AM [facility] CO2 22 22 - 29 mmol/L 06/06/2022 4:03 AM [facility] Glucose 112 70 - 115 mg/dL 06/06/2022 4:03 AM [facility] Calcium 8.9 8.4 - 10.2 mg/dL 06/06/2022 4:03 AM [facility] Anion Gap 12 8 - 18 06/06/2022 4:03 AM [facility] BUN/Creatinine Ratio 19 7 - 23 06/06/2022 4:03 AM [facility] Osmolality Calculated 273 270 - 300 mOsm/kg 06/06/2022 4:03 AM [facility] eGFR by CKD-EPI 42(L) >=90 mL/min/1.7 3 m2 06/06/2022 4:03 AM [facility] Blood BLOOD SPECIMEN / Unknown Lab Venipuncture / Unknown 06/06/2022 3:07 [facility] 06/06/2022 3:29 AM [facility] Deon Taylor MD LAB - CHEMISTRY CHELO QUIGLEY [facility] [address] [place] [address], [place] [phone] * FOLATE (06/06/2022 3:07 AM [facility]) Folate 9.4 7.0 - 31.4 ng/mL 06/06/2022 4:35 AM [facility] Blood BLOOD SPECIMEN / Unknown Lab Venipuncture / Unknown 06/06/2022 3:07 AM [facility] 06/06/2022 3:29 AM [facility] Ama Gonzalez MD LAB - CHEMISTRY ORDERABLES [facility] [address] [place] [address], [place] [phone] * VITAMIN B12 (06/06/2022 3:07 AM [facility]) Vitamin B12 382 213 - 816 pg/mL 06/06/2022 4:35 AM [facility] Blood BLOOD SPECIMEN / Unknown Lab Venipuncture / Unknown 06/06/2022 3:07 AM [facility] 06/06/2022 3:29 AM [facility] Ama Gonzalez MD LAB - CHEMISTRY ORDERABLES [address] [address], [place] [phone] * FERRITIN (06/06/2022 3:07 AM [facility]) [facility] Ferritin 94 13 - 204 ng/mL 06/06/2022 4:10 AM [facility] Blood BLOOD SPECIMEN / Unknown Lab Venipuncture / Unknown 06/06/2022 3:07 AM [facility] 06/06/2022 3:25 AM [facility] Ama Gonzalez MD LAB - CHEMISTRY ORDERABLES [address] [address], [place] [phone] * (ABNORMAL) IRON + TRANSFERRIN PANEL (06/06/2022 3:07 AM [facility]) [facility] Iron 20(L) 40 - 150 ug/dL 06/06/2022 3:53 AM [facility] Transferrin 162(L) 174 - 382 mg/dL 06/06/2022 3:53 AM [facility] Transferrin Saturation % 10(L) 16 - 50 % 06/06/2022 3:53 AM [facility] TIBC Calculated 203(L) 240 - 450 ug/dL 06/06/2022 3:53 AM [facility] Blood BLOOD SPECIMEN / Unknown Lab Venipuncture / Unknown 06/06/2022 3:07 [facility] 06/06/2022 3:25 AM [facility] Ama Gonzalez MD LAB - CHEMISTRY ORDERABLES [address] [address], [place] [phone] * HEMOGLOBIN A1C (06/06/2022 3:07 AM [facility]) [facility] Hemoglobin A1c 5.3 <=5.6 % 06/06/2022 3:38 PM [facility] Estimated Average Glucose 105 mg/dL 06/06/2022 3:38 PM [facility] Comment: HbA1c Interpretation: Normal : < 5.7% Pre-diabetes: 5.7-6.4% Diabetes: Equal to or greater than 6.5% Test results diagnostic of diabetes should be repeated for confirmation. Treatment target values recommended by ADA and other clinical organizations should be used to evaluate metabolic control in patients. Reference: [employer], Standards of Care in Diabetes -2020 In patients 70 years and older consider HbA1c target range of 7.0-7.5% (Reference: Oswaldo Liz et al. JAMDA. 2012) The Sebia assay for the measurement of HbA1c is a National Glycohemoglobin Standardization Program (NGSP) certified method. Blood BLOOD SPECIMEN / Unknown Lab Venipuncture / Unknown 06/06/2022 3:07 [facility] 06/06/2022 3:28 [facility] Ama Gonzalez MD LAB - CHEMISTRY ORDERABLES [address] [address], [facility] [phone] * PTH INTACT W/O CALCIUM (06/06/2022 3:07 AM [facility]) PTH Intact 72.1 8.0 - 77.0 pg/mL 06/06/2022 4:04 AM [facility] Blood BLOOD SPECIMEN / Unknown Lab Venipuncture / Unknown 06/06/2022 3:07 AM [facility] 06/06/2022 3:32 AM [facility] Deon Taylor MD LAB - CHEMISTRY CHELO QUIGLEY [address] [address], [facility] [phone] * VITAMIN D 25-HYDROXY (06/06/2022 3:07 AM [facility]) Vitamin D, 25 Hydroxy 53.0 30.0 - 80.0 ng/mL 06/06/2022 4:35 AM [facility] Comment: The recommendations for 25-Hydroxy Vitamin [...] Lab Venipuncture / Unknown 06/06/2022 3:07 AM [facility] 06/06/2022 3:29 AM [facility] Deon Taylor MD LAB - CHEMISTRY CHELO QUIGLEY Performing Organization Address [facility] Co de Phone Number [address] [address], [facility] [phone] * (ABNORMAL) GLUCOSE - POINT OF CARE (06/05/2022 8:51 PM [facility]) Pathologist [facility] Glucose WB/POC 152(H) 70 - 115 mg/dL 06/05/2022 8:52 [address] [facility] Specimen Type Cap Fingerstick 2022 8:52 [address] [facility] Blood BLOOD SPECIMEN / Unknown 06/05/2022 8:51 PM [facility] 06/05/2022 8:52 [facility] Ama Gonzalez MD LAB - POINT OF C ARE ORDERABLES Performing Organization Address [facility] Co de Phone Number [address] [address], [place] [phone] * (ABNORMAL) GLUCOSE - POINT OF CARE (06/05/2022 5:59 [facility]) Glucose WB/POC 185(H) 70 - 115 mg/dL 06/05/2022 6:02 [address] [facility] Specimen Type Cap Fingerstick 2022 6:02 [address] [facility] Blood BLOOD SPECIMEN / Unknown 06/05/2022 5:59 PM [facility] 06/05/2022 6:02 [facility] Ama Gonzalez MD LAB - POINT OF ARE ORDERABLES [address] [address], [place] [phone] * (ABNORMAL) GLUCOSE - POINT OF CARE (06/05/2022 4:27 [facility]) Glucose WB/POC 208(H) 70 - 115 mg/dL 06/05/2022 4:28 [address] [facility] Specimen Type Arterial 06/05/2022 4:28 [facility] Blood BLOOD SPECIMEN / Unknown 06/05/2022 4:27 PM [facility] 06/05/2022 4:28 [facility] Ama Gonzalez MD LAB - POINT OF ARE ORDERABLES [facility] [address] [place] [address], [place] [phone] * (ABNORMAL) GLUCOSE - POINT OF CARE (06/05/2022 12:37 [facility]) Glucose WB/POC 163(H) 70 - 115 mg/dL 06/05/2022 12:37 [facility] Specimen Type Arterial 06/05/2022 12:37 [facility] Blood BLOOD SPECIMEN / Unknown 06/05/2022 12:37 [facility] 06/05/2022 12:37 [facility] Ama Gonzalez MD LAB - POINT OF C ARE ORDERABLES [facility] [address] [place] [address], [facility] [phone] * (ABNORMAL) CBC W/O DIFFERENTIAL (06/05/2022 12:32 PM [facility]) WBC 10.0 3.5 - 10.5 10? 3 /uL 06/05/2022 12:45 PM [facility] RBC 2.31(L) 3.80 - 5.20 10? 6 /uL 06/05/2022 12:45 PM [facility] Hemoglobin 7.0(L) 12.0 - 15.6 g/dL 06/05/2022 12:45 PM [facility] Hematocrit 20.9(L) 35.0 - 45.0 % 06/05/2022 12:45 PM [facility] MCV 90.5 80.7 - 98.3 fL 06/05/2022 12:45 PM [facility] MCH 30.3 26.7 - 34.0 pg 06/05/2022 12:45 PM [facility] MCHC 33.5 30.8 - 35.9 g/dL 06/05/2022 12:45 PM [facility] RDW-SD 43.0 36.0 - 50.0 fL 06/05/2022 12:45 PM [facility] RDW-CV 13.2 11.2 - 14.8 % 06/05/2022 12:45 PM [facility] Platelet Count 259 150 - 400 10? 3 /uL 06/05/2022 12:45 PM [facility] MPV 9.5 9.4 - 12.9 fL 06/05/2022 12:45 PM [facility] nRBC Absolute 0.00 0 10? 3 /uL 06/05/2022 12:45 PM [facility] nRBC Auto 0.0 0 /100 WBC 06/05/2022 12:45 PM [facility] Blood BLOOD SPECIMEN / Unknown Lab Venipuncture / Unknown 06/05/2022 12:32 [facility] 06/05/2022 12:37 [facility] Ama Gonzalez MD LAB - HEMATOLOGY ORDERABLES [facility] [address] [place] [address], [facility] [phone] * XR CERVICAL SPINE 2 OR 3VW (06/05/2022 9:35 AM [facility]) Anatomical Region Laterality Modality Spine Radiographic Vivian ging 06/05/2022 11:4 5 AM [facility] Impressions 06/05/2022 3:11 [address] [facility] IMPRESSION: Interval posterior spinal fusion of C4-T2. Poor delineation of the spine in this region in lateral projection. Report drafted by Jon Arias MD (vice president talent management) Kamila Narvaez MD have personally reviewed and interpreted this examination/study. > Interpreting Provider: Kamila Barber MD on 06/05/2022 3:11 PM Narrative 06/05/2022 3:11 [address] [facility] PROCEDURE: ??XR CERVICAL SPINE 2 OR 3VW, DATE/TIME OF EXAM: ??06/05/2022 9:37 AM, LOCATION ??[facility] INDICATION: M50.30: Degeneration of cervical intervertebral [...] 3VW, DATE/TIME OF EXAM: 39:37 AM, LOCATION [facility] INDICATION: M50.30: Degeneration of cervical intervertebral [...] projection. Report drafted by Jon Arias MD (vice president talent management) I, Kamila Barber MD have personally reviewed and interpreted this examination/study. > Interpreting Provider: Kamila Barber MD on 06/05/2022 3:11 PM Lyla Blackwell SHOVEL OPERATOR[employer] SUPERVISOR DIAGNOSTIC IMAG ING ORDERABLES * GLUCOSE - POINT OF CARE (06/05/2022 8:39 AM [facility]) Glucose WB/POC 109 70 - 115 mg/dL 06/05/2022 8:40 AM [facility] Specimen Type Arterial 06/05/2022 8:40 [address] [facility] Blood BLOOD SPECIMEN / Unknown 06/05/2022 8:39 AM [facility] 06/05/2022 8:40 AM [facility] Deon Taylor MD LAB - POINT OF CARE ORDERABLES [facility] [address] [place] [address], [facility] [phone] * (ABNORMAL) CBC W/O DIFFERENTIAL (06/05/2022 4:58 AM [facility]) WBC 10.4 3.5 - 10.5 10? 3 /uL 06/05/2022 5:27 AM [facility] RBC 2.41(L) 3.80 - 5.20 10? 6 /uL 06/05/2022 5:27 AM [facility] Hemoglobin 7.1(L) 12.0 - 15.6 g/dL 06/05/2022 5:27 AM [facility] Hematocrit 22.1(L) 35.0 - 45.0 % 06/05/2022 5:27 AM [facility] MCV 91.7 80.7 - 98.3 fL 06/05/2022 5:27 AM [facility] MCH 29.5 26.7 - 34.0 pg 06/05/2022 5:27 AM [facility] MCHC 32.1 30.8 - 35.9 g/dL 06/05/2022 5:27 AM [facility] RDW-SD 43.3 36.0 - 50.0 fL 06/05/2022 5:27 AM [facility] RDW-CV 13.1 11.2 - 14.8 % 06/05/2022 5:27 AM [facility] Platelet Count 273 150 - 400 10? 3 /uL 06/05/2022 5:27 AM [facility] MPV 9.8 9.4 - 12.9 fL 06/05/2022 5:27 AM [facility] nRBC Absolute 0.00 0 10? 3 /uL 06/05/2022 5:27 AM [facility] nRBC Auto 0.0 0 /100 WBC 06/05/2022 5:27 AM [facility] Blood BLOOD SPECIMEN / Unknown Lab Venipuncture / Unknown 06/05/2022 4:58 AM [facility] 06/05/2022 5:16 AM [facility] Deon Taylor MD LAB - HEMATOLOGY ORD ERABLES [facility] [address] [place] [phone], [facility] [phone] * (ABNORMAL) BASIC METABOLIC PANEL (CALCIUM TOTAL) (06/05/2022 4:58 AM [facility]) BUN 27(H) 7 - 26 mg/dL 06/05/2022 5:43 AM [facility] Creatinine 1.40(H) 0.56 - 0.96 mg/dL 06/05/2022 5:43 AM [facility] Sodium 132(L) 136 - 145 mmol/L 06/05/2022 5:43 AM [facility] Potassium 5.2(H) 3.5 - 4.5 mmol/L 06/05/2022 5:43 AM [facility] Chloride 103 98 - 107 mmol/L 06/05/2022 5:43 AM [facility] CO2 19(L) 22 - 29 mmol/L 06/05/2022 5:43 AM [facility] Glucose 107 70 - 115 mg/dL 06/05/2022 5:43 AM [facility] Calcium 8.5 8.4 - 10.2 mg/dL 06/05/2022 5:43 AM [facility] Anion Gap 15 8 - 18 06/05/2022 5:43 AM [facility] BUN/Creatinine Ratio 19 7 - 23 06/05/2022 5:43 AM [facility] Osmolality Calculated 280 270 - 300 mOsm/kg 06/05/2022 5:43 AM [facility] eGFR by CKD-EPI 40(L) >=90 mL/min/1.7 3 m2 06/05/2022 5:43 AM [facility] Blood BLOOD SPECIMEN / Unknown Lab Venipuncture / Unknown 06/05/2022 4:58 AM [facility] 06/05/2022 5:17 AM [facility] Deon Taylor MD LAB - CHEMISTRY CHELO QUIGLEY [facility] Organization Address City/State/ZIP Co de Phone Number [facility] [address] [place] [address], [facility] [phone] * (ABNORMAL) GLUCOSE - POINT OF CARE (06/04/2022 8:20 PM [facility]) Pathologist [facility] Glucose WB/POC 120(H) 70 - 115 mg/dL 06/04/2022 8:21 [address] [facility] Specimen Type Cap Fingerstick 2022 8:21 [address] [facility] Blood BLOOD SPECIMEN / Unknown 06/04/2022 8:20 PM [facility] 06/04/2022 8:21 PM [facility] Deon Taylor MD LAB - POINT OF CARE ORDERABLES Performing Organization Address City/[facility]/ZIP Co de Phone Number [facility] [address] [place] [address], [place] [phone] * GLUCOSE - POINT OF CARE (06/04/2022 11:51 AM [facility]) Glucose WB/POC 111 70 - 115 mg/dL 06/04/2022 11:56 AM [facility] Specimen Type Cap Fingerstick 2022 11:56 AM [facility] Blood BLOOD SPECIMEN / Unknown 06/04/2022 11:51 AM [facility] 06/04/2022 11:55 AM [facility] Deon Taylor MD LAB - POINT OF CARE ORDERABLES Performing Organization Address [facility]/ZIP Co de Phone Number [address] [address], [place] [phone] * FL JOSÉ LUIS SURGERY (06/04/2022 11:30 AM [facility]) Narrative [facility] - 06/04/2022 12:52 PM [facility] Fluoroscopy was used for this exam in the OR. Please see the Operative report. Deon Taylor MD FLUOROSCOPY ORDERABL ES Performing Organization Address City/[facility]/ZIP Co de Phone Number [facility] * (ABNORMAL) GLUCOSE - POINT OF CARE (06/04/2022 6:39 AM [facility]) Glucose WB/POC 130(H) 70 - 115 mg/dL 06/05/2022 12:40 [address] [facility] Specimen Type Venous 06/05/2022 12:40 [address] [facility] Blood BLOOD SPECIMEN / Unknown 06/04/2022 6:39 AM [facility] 06/05/2022 12:40 PM [facility] Deon Taylor MD LAB - POINT OF CARE ORDERABLES [facility] [address] [place] [address], [place] [phone] * TYPE + SCREEN PANEL (06/04/2022 6:39 AM [facility]) Antibody Screen NEG 7:24 AM [facility] ABO Rh A POS 06/04/2022 7:24 AM [facility] Blood Bank BLOOD SPECIMEN / Unknown Venipuncture / Unknown 06/04/2022 6:39 AM [facility] 06/04/2022 6:44 AM [facility] Provider Unknown LAB - BLOOD BANK ORD ERABLES Performing Organization Address City/[facility]/ZIP Co de Phone Number [facility] [address] [place] [address], [place] [phone] documented in this encounter Visit Diagnoses Diagnosis [...] Post-op $ New Bag/Syringe 06/05/2022 7:16 AM [facility] 75 mL/hr $ New Bag/Syringe 06/04/2022 6:13 PM [facility] 75 mL/ hr 0.9% NaCl injection 1-10 [...] 8 hours. $ Given 06/08/2022 8:08 PM [facility] 3 mL $ Given 06/08/2022 2:36 PM [facility] 3 mL $ Given 06/08/2022 5:08 AM [facility] 3 mL acetaminophen (Tylenol) tablet 1,000 mg [...] the MAR. $ Given 06/08/2022 8:07 PM [facility] 1,000 mg $ Given 06/08/2022 2:36 PM [facility] 1,000 mg $ Given 06/08/2022 9:07 AM [facility] 1,000 mg acetaminophen (Tylenol) tablet 650 mg [...] MAR., Post-op $ Given 06/05/2022 8:34 AM [facility] 650 mg $ Given 06/05/2022 4:00 AM [facility] 650 mg $ Given 06/04/2022 10:28 PM [facility] 650 mg buPROPion SR 12hr (Wellbutrin-SR) tablet 100 mg 100 mg, Oral, 2 TIMES DAILY, First dose on Sat06/04/22 at 1330, Until Discontinued, Do not crush, chew, or cut in half. $ Given 06/08/2022 8:07 PM [facility] 100 mg $ Given 06/08/2022 9:07 AM [facility] 100 mg $ Given 06/07/2022 8:20 PM [facility] 100 mg carvedilol (Coreg) tablet 6.25 mg 6.25 mg, Oral, 2 TIMES DAILY, First dose on Sat06/04/22 at 2100, Until Discontinued, Take with food $ Given 06/08/2022 8:08 PM [facility] 6.25 mg $ Given 06/08/2022 9:07 AM [facility] 6.25 mg $ Given 06/07/2022 8:20 PM [facility] 6.25 mg ceFAZolin (Ancef) 2 g in 0.9% NaCl IV 50 mL IVPB 2 g, at 100 mL/hr, Intravenous, EVERY 8 HOURS, 2 doses, First dose on Sat06/04/22 at 1930, Last dose on Sat06/05/22 at 0330, Indication for anti-infective therapy: Surgical prophylaxis, Post-op $ New Bag/Syringe 06/05/2022 4:02 AM [facility] 2 g 100 m L/hr $ New Bag/Syringe 06/04/2022 8:34 PM [facility] 2 g 100 mL /hr dextrose 10 [...] Until Discontinued $ Given 06/08/2022 9:07 AM [facility] 20 mg $ Given 06/07/2022 8:42 AM [facility] 20 mg $ Given 06/06/2022 8:20 AM [facility] 20 mg fentaNYL (PF) (Sublimaze) injection 50 [...] MAR., PACU $ Given 06/04/2022 12:20 PM [facility] 50 mcg $ Given 06/04/2022 12:00 PM [facility] 50 mcg furosemide (Lasix) tablet 10 mg 10 mg, Oral, DAILY, First dose on Sat06/05/22 at 0900, Until Discontinued $ Given 06/05/2022 8:34 AM [facility] 10 mg gabapentin (Neurontin) capsule 300 mg 300 mg, Oral, 3 TIMES DAILY, First dose on Sat06/05/22 at 0800, Until Discontinued $ Given 06/08/2022 8:08 PM [facility] 300 m g $ Given 06/08/2022 2:36 PM [facility] 300 mg $ Given 06/08/2022 9:07 AM [facility] 300 mg HYDROmorphone (Dilaudid) injection 0.5 mg [...] MAR., PACU $ Given 06/04/2022 12:40 PM [facility] 0.5 mg insulin lispro (HumaLOG;ADMelog) 100 UNIT/ML [...] physician, Post-op $ Given 06/07/2022 12:10 PM [facility] 1 Units Left Arm $ Given 06/06/2022 5:28 PM [facility] 2 Units Ri ght Arm $ Given 06/05/2022 6:00 PM [facility] 1 Units Le ft Arm iron sucrose (Venofer) injection 200 mg 200 mg, Intravenous, DAILY, 5 doses, First dose on Sat06/06/22 at 0930, Last dose on Sat06/10/22 at 0900, May administer up to 200 mg of undiluted solution IVP slowly over 5 minutes $ Given 06/08/2022 9:06 AM [facility] 200 mg $ Given 06/07/2022 8:42 AM [facility] 200 mg $ Given 06/06/2022 10:37 AM [facility] 200 mg lactated ringers infusion at 20 mL/hr, Intravenous, PRE-OP CONTINUOUS, Starting on Sat06/04/22 at 0545, Until Sat06/04/22 at 1314, Pre-op Restarted 06/04/2022 9:36 AM [facility] $ New Bag/Syringe 06/04/2022 6:42 AM [facility] 20 mL/ hr latanoprost (Xalatan) 0.005 % ophthalmic solution 1 drop 1 drop, Each Eye, AT BEDTIME, First dose on Sat06/04/22 at 2100, Until Discontinued, Allow at least 5 minutes between administration of multiple ophthalmic products Once opened, store at room temperature $ Given 06/08/2022 8:08 PM [facility] 1 drop $ Given 06/07/2022 8:22 PM [facility] 1 drop $ Given 06/06/2022 8:27 PM [facility] 1 drop lisinopril (Prinivil; Zestril) tablet 20 mg 20 mg, Oral, DAILY, First dose on Sat06/05/22 at 0900, Until Discontinued $ Given 06/08/2022 9:07 AM [facility] 20 mg $ Given 06/07/2022 8:41 AM [facility] 20 mg $ Given 06/06/2022 8:20 AM [facility] 20 mg magnesium sulfate 2 g in 50 mL bolus 2 g, at 25 mL/hr, Administer over 120 Minutes, Intravenous, ONCE, 1 dose, On Sat06/06/22 at 0745, Infuse at 1 gm/hr $ New Bag/Syringe 06/06/2022 8:17 AM [facility] 2 g 25 mL/hr magnesium sulfate 2 g in 50 mL bolus 2 g, at 25 mL/hr, Administer over 120 Minutes, Intravenous, ONCE, 1 dose, On Sat06/08/22 at 0900, Infuse at 1 gm/hr $ New Bag/Syringe 06/08/2022 9:11 AM [facility] 2 g 25 mL/hr meclizine (Antivert) tablet 25 mg 25 mg, Oral, 3 TIMES DAILY PRN, Dizziness, Starting on Sat06/07/22 at 0945, Until Sat06/08/22 at 2259 $ Given 06/08/2022 10:50 AM [facility] 25 mg $ Given 06/07/2022 1:57 PM [facility] 25 mg methocarbamol (Robaxin) tablet 750 mg 750 mg, Oral, EVERY 6 HOURS PRN, Muscle Spasms, Starting on Sat06/04/22 at 1315, Until Sat06/05/22 at 1018, Post-op $ Given 06/05/2022 5:39 AM [facility] 750 mg $ Given 06/04/2022 10:28 PM [facility] 750 mg ondansetron (Zofran) injection 4 mg 4 mg, Intravenous, EVERY 6 HOURS PRN, Nausea/Vomiting, Starting on Sat06/05/22 at 0759, Until Sat06/08/22 at 2259, Administer over 2 to 5 minutes. $ Given 06/06/2022 8:26 PM [facility] 4 mg oxyCODONE (immediate release) (Roxicodone) tablet [...] MAR., Post-op $ Given 06/05/2022 8:33 AM [facility] 10 mg oxyCODONE (immediate release) (Roxicodone) tablet [...] MAR., Post-op $ Given 06/04/2022 10:27 PM [facility] 5 mg $ Given 06/04/2022 6:08 PM [facility] 5 mg oxyCODONE (immediate release) (Roxicodone) tablet [...] MAR., Post-op $ Given 06/08/2022 10:50 AM [facility] 5 mg $ Given 06/06/2022 8:27 PM [facility] 5 mg $ Given 06/06/2022 4:57 AM [facility] 5 mg pantoprazole EC (Protonix) tablet 40 mg 40 mg, Oral, DAILY, First dose on Sat06/04/22 at 1330, Until Discontinued, Do not crush, chew, or cut in half. $ Given 06/08/2022 9:07 AM [facility] 40 mg $ Given 06/07/2022 8:41 AM [facility] 40 mg $ Given 06/06/2022 8:20 AM [facility] 40 mg polyethylene glycol 3350 (Miralax) packet 17 g 17 g, Oral, DAILY, First dose (after last modification) on Sat06/05/22 at 0900, Until Discontinued, Mix in 8 ounces of water, juice, soda, coffee or tea prior to administration, Post-op $ Given 06/06/2022 8:20 AM [facility] 17 g $ Given 06/05/2022 8:33 AM [facility] 17 g polyethylene glycol 3350 (Miralax) packet 17 g 17 g, Oral, 2 TIMES DAILY, First dose (after last modification) on Sat06/06/22 at 2100, Until Discontinued, Mix in 8 ounces of water, juice, soda, coffee or tea prior to administration, Post-op $ Given 06/06/2022 8:28 PM [facility] 17 g polyethylene glycol 3350 (Miralax) packet 17 g 17 g, Oral, DAILY PRN, Constipation, Starting on Sat06/07/22 at 0906, Until Sat06/08/22 at 2259, Mix in 8 ounces of water, juice, soda, coffee or tea prior to administration, Post-op pravastatin (Pravachol) tablet 40 mg 40 mg, Oral, AT BEDTIME, First dose on Sat06/04/22 at 2100, Until Discontinued $ Given 06/08/2022 8:07 PM [facility] 40 mg $ Given 06/07/2022 8:20 PM [facility] 40 mg $ Given 06/06/2022 8:27 PM [facility] 40 mg QUEtiapine (SEROquel) tablet 100 mg 100 mg, Oral, 2 TIMES DAILY, First dose (after last reorder) on Sat06/04/22 at 1445, Until Discontinued $ Given 06/05/2022 8:34 AM [facility] 100 mg $ Given 06/04/2022 8:34 PM [facility] 100 mg QUEtiapine (SEROquel) tablet 100 mg 100 mg, Oral, DAILY, First dose (after last modification) on Sat06/06/22 at 0900, Until Discontinued $ Given 06/07/2022 8:41 AM [facility] 100 mg $ Given 06/06/2022 8:20 AM [facility] 100 mg QUEtiapine (SEROquel) tablet 100 mg 100 mg, Oral, EVERY EVENING, First dose (after last modification) on Sat06/08/22 at 1700, Until Discontinued $ Given 06/08/2022 6:27 PM [facility] 100 mg QUEtiapine (SEROquel) tablet 50 mg 50 mg, Oral, Once, 1 dose, On Sat06/07/22 at 2000 $ Given 06/07/2022 8:22 PM [facility] 50 mg saline nasal spray (Rocky Comfort; Baby Acton) 0.65 % nasal spray 2 spray 2 spray, Each Nostril, EVERY 1 HOUR PRN, Dry Nose, Starting on Sat06/06/22 at 0946, Until Sat06/08/22 at 2259 senna-docusate (Senokot-S) tablet 1 tablet 1 tablet, Oral, DAILY, First dose on Sat06/04/22 at 1330, Until Discontinued, Post-op $ Given 06/06/2022 8:20 AM [facility] 1 tablet $ Given 06/05/2022 8:34 AM [facility] 1 tablet sodium - potassium phosphates (K Phos Neutral) tablet 2 tablet 2 tablet, Oral, ONCE, 1 dose, On Sat06/07/22 at 0900, Contains Phos 8 mmol, K+ 1.1 mEq, Na 13 mEq per tablet $ Given 06/07/2022 8:41 AM [facility] 2 tablets vitamin D3 (Cholecalciferol) 10 MCG (400 UNIT) tablet 400 Units 400 Units, Oral, DAILY, First dose on Sat06/08/22 at 0900, Until Discontinued, 400 units = 10 mcg $ Given 06/08/2022 9:07 AM [facility] 400 Units vitamin D3 (Cholecalciferol) 10 MCG (400 UNIT) tablet 800 Units 800 Units, Oral, DAILY, First dose (after last modification) on Sat06/09/22 at 0900, Until Discontinued, 400 units = 10 mcg documented in this encounter Active and Recently Administered Medications Times are shown in [facility]. Scheduled Medication Order 06/06/2022 06/07/202206/0806/08/2022 0.9% NaCl [...] at 1999 2021 ($ Given - Provider: Vivina Boo RN) senna-docusate (Senokot-S) tablet 1 tablet [...] prior to administration, Post-op saline nasal spray (Rocky Comfort; Baby Acton) 0.65 % nasal spray 2 spray 2 [...] Post-op documented in this encounter Care Teams Pump Operator Byproducts Relationship Specialty Start Date End Date Karrie Phillips MD [facility] [place] [address] PCP - General 03/13/22 documented as of this encounter
--- OUTSIDE RECORDS SUMMARY | 2024-04-11 21:57 | XMS_ITS | Encounter Summary ---
Author Organization [facility] Address [address] [place] [address] Care Team Providers Care Automobile Body Customizer Name Role Phone Karrie Phillips MD Primary Care Provider [phone] Reason for Visit * Reason Comments Surgical Follow-up * Consult, Test & Treat (Routine) - Closed Specialty Diagnoses / Procedures Referred By Contac t Referred To Contact Orthopedic Surgery / Orthopedics Selfreferral, Patient Deon Taylor MD [address] [place] [address] Referral ID Status Reason Start Date Expiration Date Visits Re quested Visits Authorized [id number] Closed 12/04/2022 12/04/2023 1 1 Encounter Details Date Type Department Care Team (Late st Contact Info) Description 12/04/2022 1:45 PM CDT Office Visit [facility] - Orthopedics [address] [place] [address], [place] [address] Deon Taylor MD [address] [place] [address] S/P cervical spinal fusion (Primary Dx) [...] and heating? Not hard at all 06/04/2022 [facility] [place] of Occupat ional Health - Occupational Stress [...] Please contact Dr. Taylor's clinical specialist at [phone] or through [facility] if you have any further questions or concerns. [facility] office contact information: [facility] [address] [place] [address] [place] [address] [facility] [address] [place] [address], [place] [address] December 04, 2022 To Whom It May Concern: Please use this letter to document that Kandace Cole, : 1950, was in to see Deon Taylor MD on 12/04/2022. Thank you. Sincerely, Deon Taylor MD [facility] 1L documented in this encounter Progress Notes * Aleyda Rebollar MD - 12/04/2022 2:39 PM CDT [facility] Orthopedic Spine Surgery Clinic Note Kandace Cole, 72 year old, female : 1950 CSN: [id number] Primary Care Physician: Karrie Phillips MD, MD [...] 100 MG tablet ??? saline nasal spray (Curry; Baby [place]) 0.65 % nasal spray ??? vitamin D3 [...] Please reach out to my clinical specialist [phone] with any questions or concerns. 12/04/2022 2:50 [...] (severe dysfunction) This note was transcribed using Cable-[employer]ense dictation software and may include inaccuracies in chemical pumper which were unrecognized and not corrected. Deon Taylor MD documented in this encounter Plan of Treatment Upcoming Encounters Date Type Department Care Team (Late st Contact Info) Description 06/02/2024 1:45 PM FLORAL SPECIALIST Office Visit [facility] - Orthopedics [address] [place] [address], [place] [address] Deon Taylor MD [address] [place] [address] documented as of this encounter Results * XR CERVICAL SPINE 2 OR 3VW (12/04/2022 2:45 PM CDT) Anatomical Region Laterality Modality Spine Radiographic Vivian ging 12/04/2022 2:53 PM CDT Impressions 12/04/2022 3:02 PM CDT IMPRESSION: Redemonstrated C4-T2 posterior instrumentation with unchanged alignment. Report dictated by Caesar Carpio MD (compensation vice president). I, Petar Spears MD have personally reviewed and interpreted this examination/study. > Interpreting Provider: Petar Spears MD on 12/04/2022 3:02 PM Narrative 12/04/2022 3:02 PM CDT PROCEDURE: ??XR CERVICAL SPINE 2 OR 3VW, DATE/TIME OF EXAM: ??12/04/2022 2:47 PM, LOCATION ??[facility] INDICATION: Z98.1: S/P cervical [...] 3VW, DATE/TIME OF EXAM: 32:47 PM, LOCATION [facility] INDICATION: Z98.1: S/P cervical [...] alignment. Report dictated by Caesar Carpio MD (compensation vice president). I, Petar Spears MD have personally reviewed and interpreted this examination/study. > Interpreting Provider: Petar Spears MD on 12/04/2022 3:02 PM Deon Taylor MD DIAGNOSTIC IMAGING O RDERABLES documented in this encounter Visit Diagnoses Diagnosis S/P cervical spinal fusion- Primary Arthrodesis status S/P cervical spinal fusion Arthrodesis status documented in this encounter Care Teams Automobile Body Customizer Relationship Specialty Start Date End Date Karrie Phillips MD [facility] [place] [address] PCP - General 03/13/22 documented as of this encounter
--- OUTSIDE RECORDS SUMMARY | 2024-04-11 21:57 | XMS_ITS | Encounter Summary ---
Author Organization [facility] Address [address] [facility] [place] [address] Care Team Providers Care Trailer Chief Name Role Phone Karrie Phillips MD Primary Care Provider [phone] Encounter Details Date Type Department Care Team [...] heating? Not hard at all 06/04/2022 [facility] [place] of Occupat ional Health - Occupational Stress [...] Contact Info) Description 06/02/2024 1:45 PM SUPERVISOR SOUND TECHNICIAN Office Visit [facility] [address] [place] [address], [facility] [place] [address] Deon Taylor MD [address] [place] [address] documented as of this encounter Visit Diagnoses Not on filedocumented in this encounter Care Teams Trailer Chief Relationship Specialty Start Date End Date Karrie Phillips MD [address] [place], [place] [address] [address] PCP - General 03/13/22 documented as of this encounter
--- OUTSIDE RECORDS SUMMARY | 2024-04-11 21:58 | XMS_ITS | Encounter Summary ---
Author Organization [facility] Address [address] [place] [address] Care Team Providers Care Line Cleaner Name Role Phone Unavailable Primary Care Provider Unavailabl e Encounter Details Date Type Department Care Team (Late Contact Info) Description 12/07/2009 Orders Only [facility] [address] [facility], [address] [place] [address] Dionisio Ryan MD [address] [facility] [address] [place] [address] Degeneration of Cervical Intervertebral Disc Social History Tobacco Use Types Packs/Day Years Used Date Smoking Tobacco: Never Assessed Sex and Gender Information Value Date Recorded Sex Assigned at Not on file Gender Identity Not on file Sexual Orientation Not on file documented as of this encounter Plan of Treatment Upcoming Encounters Date Type Department Care Team (Late Contact Info) Description 06/02/2024 1:45 PM BOX OFFICE AGENT Office Visit [facility] [facility], [place] [id number] Deon Taylor MD [address] [place] [address] documented as of this encounter Visit Diagnoses Diagnosis Degeneration of cervical intervertebral disc- Primary documented in this encounter
--- OUTSIDE RECORDS SUMMARY | 2024-04-11 21:58 | XMS_ITS | Encounter Summary ---
Author Organization [facility] Address [address] [place] [address] Care Team Providers Care Draw Hand Name Role Phone Karrie Phillips MD Primary Care Provider [phone] Encounter Details Date Type Department Care Team (Late st Contact Info) Description 02/15/2022 Ophth Exam [facility] [address] [place] [phone] Makenzie Sin DO [address] [place] [id number] Social History Tobacco Use Types Packs/Day Years [...] st Contact Info) Description 06/02/2024 1:45 PM ENTRY LEVEL CIVIL ENGINEER Office Visit [facility] [address] [facility], [place] [address] Deon Taylor MD [facility] [place] [address] documented as of this encounter Visit Diagnoses Not on filedocumented in this encounter Additional Health Concerns Infection Onset Date Last Indicated Resolved Time COVID-19 Under Investigation 02/15/2022 02/15/2022 02/15/2022 3:59 PM ENTRY LEVEL CIVIL ENGINEER documented as of this encounter Care Teams Draw Hand Relationship Specialty Start Date End Date Karrie Phillips MD [address] [place] [address] PCP - General 03/13/22 documented as of this encounter
--- OUTSIDE RECORDS SUMMARY | 2024-04-11 21:58 | XMS_ITS | Encounter Summary ---
Author Organization [facility] Address [address] [place] [place] [address] Care Team Providers Care Language Assistant Name Role Phone Unavailable Primary Care Provider Unavailabl e Reason for Visit * Reason Comments Fall BIBEMS transfer from [place], fall today with zygomatic fracture, -loc, -thinners. Denies vision changes Facial Fracture * Auth/Cert (Routine) Specialty Diagnoses / Procedures Referred By Contac t Referred To Contact Referral ID Status Reason Start Date Expiration Date Visits Re quested Visits Authorized [id number] 1 1 Encounter Details Date Type Department Care Team (Late st Contact Info) Description 02/14/2022 10:07 PM TOOL MAINTENANCE WORKER - 02/19/2022 2:23 PM [facility] Hospital Encounter SL 8S ACUTE [address] [place] [phone] Justo Sparrow MD [address] [facility] [place] [phone] Abeba Will, [address] [place] [address] Marii Light MD [address] [facility] [address] [place] [address] Internal Medicine Discharge Disposition: Home [...] Comments Blood Pressure 117/58 02/19/2022 11:27 AM TOOL MAINTENANCE WORKER Pulse 88 02/19/2022 11:27 AM TOOL MAINTENANCE WORKER Temperature 36.6 ??C (97.9 ??F) 02/19/2022 11:[address] Respiratory Rate 16 02/19/2022 11:27 AM TOOL MAINTENANCE WORKER Oxygen Saturation 98% 02/19/2022 11:27 AM TOOL MAINTENANCE WORKER Inhaled Oxygen Concentration - - Weight 70.3 kg (155 lb) 02/14/2022 10:27 PM TOOL MAINTENANCE WORKER Height 165.1 cm (5' 5 ) 02/14/2022 10:27 PM TOOL MAINTENANCE WORKER Body Mass Index 25.79 02/14/2022 10:27 PM TOOL MAINTENANCE WORKER documented in this encounter Functional Status [...] Hospital Discharge Summary Patient ID: Kandace Cole [id number] 72 year old 1950 Admit date: 02/14/2022 [...] U for ophtho and ENT evaluation. At [facility], ENT was consulted, no acute intervention. They [...] 0.65 % nasal spray Commonly known as: Gordon; Baby Shipshewana [place] 1 (one) spray into each nostril [...] Your Medications These medications were sent to [facility] - [address] [facility] [id number] [address] [facility] [address] ?? amoxicillin-clavulanate 875-125 MG tablet ?? artificial [...] PCP 7-10 days after discharge Contact information: [address] [place] [address] Dr. Erazo [place] [phone] Follow up with provider . Why: follow [...] your spine due to your cervical stenosis. [facility] Otolaryngology (ENT) follow up instructions: For your [...] outpatient follow upin our clinic in the [facility] ([address] [place] [address]; [phone]). Ophthalmology (Eye) Instructions and Follow-up Information: Follow up with your regular dressing room attendant as scheduled on March 01, 2022. Feel free to call ouroffice if needed. Our contact information and location is listed below. Location: [place] [address]. ??? Our clinic is located on the [facility]. If you are driving, you should follow the blue signsto the blue elevators in the parking garage for the [facility]. You will proceed to the [facility] to register for your appointment and will be directed to our clinic, which isalso located on the same level. Telephone number: ??? During business hours (8am - 4pm, Saturday - Saturday, excluding holidays), you may call our clinicat . ??? If after these hours or on the weekend, you will need to call [facility] ([phone]), dial0 for the tankage grinder operator, and say you are an eye patient and need to speak with the eye doctor telecommunications network planner. They will contact one of the eye [...] counseling patient, working withsocial work and nursing. MAINTENANCE WORKER documented in this encounter Discharge Instructions * Discharge Instructions* Deon Perez MD - 02/15/2022 1:23 AM TOOL MAINTENANCE WORKER Images from the original note were not included. [facility] Otolaryngology (ENT) follow up instructions: For your [...] follow up in our clinic in the [facility] ([address] [place] [address]; [phone]). Ophthalmology (Eye) Instructions and Follow-up Information: Follow up with your regular dressing room attendant as scheduled on March 01, 2022. Feel free to call ouroffice if needed. Our contact information and location is listed below. Location: [address] [place] [address]. Our clinic is located on the [facility]. If you are driving, you should follow the blue signs to the blue elevators in the parking garage for the [facility]. You will proceed to the [facility] to register for your appointment and will be directed to our clinic, which is also located on the same level. Telephone number: During business hours (8am - 4pm, Saturday - Saturday, excluding holidays), you may call our clinic at . If after these hours or on the weekend, you will need to call [facility] ([phone]), dial [phone] for the tankage grinder operator, and say you are an eye patient and need to speak with the eye doctor telecommunications network planner. They will contact one of the eye doctors who will call you and address your concerns. Eye Drop Instructions: Apply erythromycin ointment to your stitches 4 times daily Activity Instructions: Do not rub your eyes No nose blowing for 2 weeks MAINTENANCE WORKER documented in this encounter Medications at [...] mouth once daily 02/20/2022 saline nasal spray (Gordon; Baby Shipshewana) 0.65 % nasal spray [place] 1 (one) spray into each nostril [...] patient arranged Home Health Care Accepting Agency: [facility] Phone Number for Home Health Care Agency: [phone] Date Services to begin: 02/21/2022 Comments: Discharge information faxed to [phone]. No further case management needs at this time. Meet Leblanc RN Case Manager [phone] MAINTENANCE WORKER * Ike Lisa, PT - 02/19/2022 1:35 PM CST [facility] Physical Medicine and Rehabilitation Physical Therapy Progress Note Patient: Kandace Cole [facility] Record Number: [id number] Date of : 1950 Age: [age] year [...] Following therapy session, patient left in bed. MAINTENANCE WORKER * Shoshana Tenorio CPhT - 02/19/2022 1:13 [...] outpatient pharmacy at [phone]. Shoshana Tenorio CPhT [facility] at [address] [place], [place] [address] Hours of Operation Saturday - Saturday: 8:00am to 6:00pm Saturday: 9:00am to 1:00pm Epic: [facility] *Ensure the patient and clinic's nearby ZIP codes box is unchecked* MAINTENANCE WORKER * Meet Quiroga RN - 02/19/2022 10:56 [...] in desired activity. 02/19/2022 1056 by Meet Quirgoa RN Outcome: Adequate for Discharge 02/19/2022 1039 [...] 1039 by Meet Quiroga RN Outcome: Progressing MAINTENANCE WORKER * Meet Quiroga RN - 02/19/2022 10:39 [...] safe completion of daily activities Outcome: Progressing MAINTENANCE WORKER * Tyson Amado RN - 02/19/2022 8:01 AM CST This quantitative analyst developerlieutenant shift supervisor attempted x 2 to reach Team Med3 regarding the cortisol med that was administered last night but no one from Team Med 3 picked up the call. MAINTENANCE WORKER * Tyson Amado RN - 02/19/2022 2:20 [...] safe completion of daily activities Outcome: Progressing MAINTENANCE WORKER * Victoria Cormeir RN - 02/18/2022 4:04 PM CST Problem: Fall Risk Goal: Fall risk and fall related injury risk are minimized (interventions related to the fall risk can be found in the flowsheet documentation) Outcome: Progressing MAINTENANCE WORKER * Meet Flores PA-C - 02/18/2022 8:22 AM CST Hospitalist Daily Progress Note Name: Kandace Cole Age: [age] year old Room: 551/564v Date Admitted: 02/14/2022 Hospital Course: Kandace Cole [...] Feel free to text page me through [facility] Date of service: 02/18/2022 Attending Physician: Abeba Will DO MAINTENANCE WORKER * Tyson Amado RN - 02/18/2022 1:31 [...] safe completion of daily activities Outcome: Progressing MAINTENANCE WORKER * Victoria Cormier RN - 02/17/2022 4:36 [...] safe completion of daily activities Outcome: Progressing MAINTENANCE WORKER * Meet Flores PA-C - 02/17/2022 2:03 PM CST Hospitalist Daily Progress Note Name: Kandace Cole Age: [age] year old Room: 837/[facility] Date Admitted: 02/14/2022 Hospital Course: Kandace Cole [...] Feel free to text page me through [facility] Date of service: 02/17/2022 Attending Physician: Abeba Will DO MAINTENANCE WORKER * Saira Soto MD - 02/17/2022 7:58 AM CST [facility] Surgery Daily Progress Note Kandace Cole, 72 year old, female : 1950 CSN: [id number] Primary Care Physician: Karrie Tompkins MD - [...] results for input(s): INR in the last 20678 hours. Physical Exam General: Awake, cooperative, in [...] to schedule/confirm appointment, contact information listed below. [facility] Orthopedic Surgery office contact information: [facility] at [address], First Floor [place], [place] [address] [facility] [address] [place] [address], [place] [address] [facility] [address] [place] [address], [address] [place] [address] Saira Soto MD 02/17/2022 7:58 AM MAINTENANCE WORKER * Tyson Amado RN - 02/17/2022 12:15 [...] safe completion of daily activities Outcome: Progressing MAINTENANCE WORKER * Tyson Amado RN - 02/16/2022 9:25 PM CST Pt.was asking if she can be prescribed Bydureon, an anti-diabetic medication, at home. She stated she received a dose of Bydureon here and she feels it was very effective in lowering her blood sugar.RN advised pt to discuss it with her primary team doctors but will also passed this info on to the team. MAINTENANCE WORKER * Pi, MD Renee - 02/16/2022 3:58 PM CST [facility] Ophthalmology Consult Progress Note Patient: Kandace [...] she was in the parkinglot of the [facility] cancer center when she became dizzy and fell, landing on the asphalt. Reports that she has had issues with dizziness due to neck abnormalities, and reports frequent head turning in a test she was completing there which she believes led to her fall. She was evaluated in the [facility] ED and found to have fractures [...] She has an upcoming appointment with her dressing room attendant on 03/01/22 who is following her for [...] in the macula OU - Follows with dressing room attendant in [place] regularly, has appt 03/01/22 ?? T2DM without [...] PLAN: Has follow up scheduled with her dressing room attendant on 03/01/22, will provide our contact information in patient discharge instructions if needed. Thank you for this consult. If you have any questions, please feel free to reach out via [employer] secure chat or page ophthalmology. This patient has been seen with Dr. Adames. Renee Torres MD Ophthalmology Resident 02/16/2022 5:13 PM MAINTENANCE WORKER Associated attestation - Cesar Adames MD - 02/18/2022 8:19 PM TOOL MAINTENANCE WORKER I have reviewed the resident note, the [...] home to help withlocomotion. Patient transferred from [facility] for further evaluation of facial bone [...] patient's preference is to stay within the [facility] and its affiliates.: Yes Verify Family Support (name and phone): Extended Emergency Contact Information Primary Emergency Contact: BARBARA CISNEROS Mobile Relation: Brother Secondary Emergency Contact: JanuaryBarbara Address: BROTHER Relation: Other Patient or logistics service representative requests care coordination reach out [...] true Food Bank Resources Provided: Patient refused Email Campaign Manager Referral: No If patient requires HHC at discharge, he/she requests: Patient agreeable to speak with [facility] at Home Will continue to follow. For any questions or needs please contact: Inside Sales Trainer Name/Phone number: Meet Leblanc RN Case Manager [phone] MAINTENANCE WORKER * Camilla Trevino, PT - 02/16/2022 8:50 AM CST [facility] Physical Medicine and Rehabilitation Physical Therapy Initial Evaluation Note Patient: Kandace Cole [facility] Record Number: [id number] Date of : 1950 Age: [age] year [...] closed fractures of facial bone, initial encounter ([facility]) Past Medical History: Diagnosis Date ??? [...] Patient's activity tolerance: fair TREATMENT/INTERVENTIONS: evaluation Modified [place]: EDUCATION: While performing PT, Patient was instructed [...] alarm on, with call light within reach. MAINTENANCE WORKER * Jurgen Rivera, OT - 02/16/2022 8:50 AM CST [facility] Physical Medicine and Rehabilitation Occupational Therapy Initial Evaluation Note Patient: Kandace Cole [facility] Record Number: [id number] Date of : 1950 Age: [age] year [...] closed fractures of facial bone, initial encounter ([facility]) Past Medical History: Diagnosis Date ??? [...] female resting comfortably in chair in hallway [facility]. LDA: IV's: Peripheral line Edema: No edema [...] Support Activities of Daily Living Feeding: Complete [place] (to drink from cup while seated in [...] call light within reach, with RNVictoria aware. MAINTENANCE WORKER * Meet Flores PA-C - 02/16/2022 7:35 [...] Feel free to text page me through [employer] [facility] Date of service: 02/16/2022 Attending Physician: Abeba Will DO MAINTENANCE WORKER * Pan Oneil MD - 02/16/2022 6:28 AM CST [facility] Sp[facility] Surgery Daily Progress Note Kandace Cole, 72 year old, female : 1950 CSN: [id number] Primary Care Physician: No primary care provider [...] results for input(s): INR in the last 32368 hours. General: Awake, cooperative, in no acute distress. CV: Regular rate. Pulm: No audible wheezing, no use of accessory muscles Abd: soft, nontender, nondistended Musculoskeletal: ?? Neck: - C-collar/Gillespie J: absent - Wounds: n/a - Tenderness [...] concerns Pan Oneil MD 02/16/2022 6:29 AM MAINTENANCE WORKER * Tyson Amado RN - 02/16/2022 2:07 AM CST Problem: Fall Risk Goal: Fall risk and fall related injury risk are minimized (interventions related to the fall risk can be found in the flowsheet documentation) Outcome: Progressing MAINTENANCE WORKER * Meet Flores PA-C - 02/15/2022 9:32 AM CST Hospitalist Daily Progress Note Name: Kandace Cole Age: [age] year old Room: [facility] Date Admitted: 02/14/2022 Hospital Course: Kandace Coel is a 72 year old female with [...] Feel free to text page me through [facility] Date of service: 02/15/2022 Attending Physician: Abeba Will DO MAINTENANCE WORKER documented in this encounter H&P Notes * Dagoberto Ordoñez MD - 02/15/2022 3:56 AM CST Images from the original note were not included. Name: Kandace Cole Admit Date and Time: 02/14/2022 10:07 PM Chief Complaint: Transferred from [facility] ER for ENT and of the [place] allergy consultation in context of facial bone [...] g/dL 3.4 Recent Labs Component Name 02/14/22 5722 TROPONINI 0.027 ECG: My personal interpretation of [...] closed fractures of facial bone, initial encounter ([facility]) Plan -admit to medicine floor for [...] - Has follow up scheduled with her dressing room attendant on 03/01/22 - outpatient follow-up with ENT [...] accordingly. Dagoberto Ordoñez MD 02/15/2022 3:57 AM MAINTENANCE WORKER documented in this encounter Consult Notes * Angelina Rabago - 02/16/2022 4:52 PM CSTAssociated Order(s): IP CONSULT TO OPERATING SYSTEM PROGRAMMER PT/OT are recommending SNF at d/c. The patient refused but is agreeable to [facility]. Patient reports that she lives with her grandson that is able to help her at d/c. SW updated CM and primary team via [employer] chat. Angelina Allenan, CHROME PLATER HELPER 02/16/[phone] MAINTENANCE WORKER * Pan Oneil MD - 02/15/2022 5:27 PM CST [facility] Consultation Note Kandace Cole, 72 year old, female : 1950 CSN: [id number] Primary Care Physician: No primary care provider on file. Chief Complaint Chief Complaint Patient presents with ??? Fall BIBEMS transfer from [place], fall today with zygomatic fracture, -loc, - thinners. Denies vision changes ??? Facial Fracture Admission Date/Time: 02/14/2022 10:07 PM Today's Date/Time: 02/15/2022 5:27 PM Time at Bedside: 4:30pm HPI Consulting Service: ED [facility] consulted for evaluation/management of: history of cervical stenosis 02/15 status post fall. Kandace Cole is a 72 year old female who as transfer from [facility] after fall on . CT facialbones [...] tablet 200 mg ??? saline nasal spray (Gordon; Baby Shipshewana) 0.65 % nasal spray 1 spray Review of Systems A 12 point review of systems was performed and was negative except for: what was mentioned in the HPI Physical Exam General: Awake, cooperative, in no acute distress. CV: Regular rate. Pulm: No audible wheezing, no use of accessory muscles Abd: soft, nontender, nondistended Musculoskeletal: Neck: - C-collar/Gillespie J: absent - Wounds: n/a - Tenderness [...] 02/15/2022 5:27 PM Follow up Contact Information: [facility] Orthopedic Surgery office contact information: [facility] at [address], [place] [address], Second Floor [place], [place] [id number] [address] [place] [address] Visit our website at [email or web address] for information about our practice and an interactive health encyclopedia. Please visit [facility] to access your health record, ask questions, request medication refills, and request appointments for non-urgent needs after you have configured your [employer] account. If you do not currently have access, please contact one of our staff members or call [phone]. For after hour emergencies, please call [phone] and press 0 for the tankage grinder operator in order to page the orthopedic resident telecommunications network planner. MAINTENANCE WORKER Associated attestation - Deon Taylor MD - 02/16/2022 8:16 AM TOOL MAINTENANCE WORKER I have seen and evaluated the patient and agree with the resident's assessment and plan as stated above. I have independently reviewed all imaging studies. 72F with signs and symptoms of potential myelopathy. Patient reports she had an MRI done at [place] prior to transfer. Will attempt to obtain MRI to review. Otherwise will need follow up and likely elective cervical decompression and fusion. Deon Taylor MD * Makenzie Cisneros DO - 02/15/2022 12:45 AM CST Images from the original note were not included. [facility] Ophthalmology Consult Note 02/15/2022 at 1:21 AM Patient: Kandace Cole Age: [age] year old Date of : 1950 Date of Admission: 02/14/2022 Chief Complaint Patient presents with ??? Fall [place]IBEMS transfer [place], fall today with zygomatic fracture, -loc, - thinners. Denies vision changes ??? Facial Fracture HPI: Kandace Cole is a 72 year old female with a history of T2DM, CKD, fibromyalgia, and Ferrell's esophagus who presents s/p ground level fall which occurred on 02/14/22. States she was in the parking lot of the [facility] cancer center when she became dizzy and fell, landing on the asphalt. Reports that she has had issues with dizziness due to neck abnormalities, and reports frequent head turning in a test she was completing there which she believes led to her fall. She was evaluated in the [facility] ED and found to have fractures [...] She has an upcoming appointment with her dressing room attendant on 03/01/22 who is following her for [...] Additional Notes CT facial bones 02/14/22 at [facility] personally reviewed. There is a fracture [...] Vitreous Syneresis, no Bibi's sign Syneresis, no [place]'s sign Fundus Exam Right Left Disc Cupping [...] possible subclinical edema OD - Follows with dressing room attendant in [place] regularly, has appt 03/01/22 T2DM without retinopathy [...] - Has follow up scheduled with her dressing room attendant on 03/01/22, will provide our contact informationin patient discharge instructions if needed. Makenzie Cisneros, Ophthalmology 02/15/2022 1:21 AM MAINTENANCE WORKER Associated attestation - Cesar Adames MD - 02/18/2022 8:17 PM TOOL MAINTENANCE WORKER I have reviewed the resident note, the [...] consultation for facial fractures. Patient presented to [facility] earlier in the evening after a [...] CO2, BUN, CREATININE, GLUCOSE, CALCIUM in thelast 80333 hours. Recent Imaging/Studies: CT facial bones personally [...] follow up in our clinic in the [facility] ([address] [place] [address]; [phone]). ?? Please page ENT with questions/concerns. Deon Perez MD Otolaryngology - Head and Neck Surgery 02/15/2022 MAINTENANCE WORKER Associated attestation - Brandyn Alfaro MD - 02/15/2022 12:09 PM TOOL MAINTENANCE WORKER Attending Physician Supervisory Note I personally interviewed [...] safe to transfer care at this time. MAINTENANCE WORKER * Que Mercer RN - 02/15/2022 1:24 PM CST Notified Med 3 team of positive orthostatic BP MAINTENANCE WORKER * Cadence Veliz RN - 02/15/2022 11:46 AM CST Pt returns from ECHO, ENT team at bedside at this time. No s/s acute distress noted. MAINTENANCE WORKER * Cadence Veliz RN - 02/15/2022 10:17 AM CST Pt BP noted to be 85 45 with a map of 63. 500mL NS bolus ordered MAINTENANCE WORKER * Tere Thompson RN - 02/15/2022 4:30 AM CST Pt resting comfortably on ED stretcher with equal and bilateral chest rise and fall. VSS. Denies needs at this time MAINTENANCE WORKER * Unruly Witt MD - 02/15/2022 3:17 AM CST [facility] Emergency Department Clinical Course Patient Kandace Cole [...] workup. Unruly Witt MD Emergency Medicine, PGY3 MAINTENANCE WORKER * Tere Thompson RN - 02/15/2022 2:00 AM CST [place] placed on pt MAINTENANCE WORKER * Tere Thompson RN - 02/15/2022 12:15 AM CST Pt resting comfortably in ED stretcher with equal and bilateral chest rise and fall. Denies needs at this time. VSS. MAINTENANCE WORKER * Justo Sparrow MD - 02/15/2022 12:06 [...] a 72 year old female??currently in the [facility] ED. Per [facility] care team, the [...] closed fractures of facial bone, initial encounter ([facility]) Disposition: Admission Please see resident note [...] personal performance and is accurate and complete. MAINTENANCE WORKER * Tere Thompson RN - 02/14/2022 10:19 PM CST Pt resting comfortably in ED stretcher with equal and bilateral chest rise and fall. VSS. A& Ox4. Cold wash rag placed over pts eyes due to head pain. MDs going into see pt regarding injuries andpain. MAINTENANCE WORKER * Missy Ríos PA-C - 02/14/2022 10:07 PM CST Bed: AC17 Expected date: Expected time: Means of arrival: Comments: [place] MAINTENANCE WORKER documented in this encounter Plan of Treatment Upcoming Encounters Date Type Department Care Team (Late st Contact Info) Description 06/02/2024 1:45 PM TOOL MAINTENANCE WORKER Office Visit [facility] - Orthopedics [address] [place] [address], [place] [phone] Deon Taylor MD [address] [place] [id number] documented as of this encounter Procedures Procedure Name Priority Date/Time Associated Diagnosis Comments CORTISOL BLOOD AM Timed 02/19/2022 5:3 6 AM TOOL MAINTENANCE WORKER CORTISOL BLOOD AM Timed 02/19/2022 5:3 5 AM TOOL MAINTENANCE WORKER BASIC METABOLIC PANEL (CALCIUM TOTAL) AM Draw 02/19/2022 4:29 AM TOOL MAINTENANCE WORKER CORTISOL BLOOD AM Timed 02/19/2022 4:2 9 AM TOOL MAINTENANCE WORKER BASIC METABOLIC PANEL (CALCIUM TOTAL) Routine 02/18/2022 12:18 PM TOOL MAINTENANCE WORKER BASIC METABOLIC PANEL (CALCIUM TOTAL) AM Draw 02/18/2022 6:58 AM TOOL MAINTENANCE WORKER SODIUM URINE RANDOM Routine 02/17/2022 2 :08 PM TOOL MAINTENANCE WORKER OSMOLALITY URINE Routine 02/17/2022 2:08 PM TOOL MAINTENANCE WORKER CBC W/O DIFFERENTIAL AM Draw 02/17/2022 6:12 AM TOOL MAINTENANCE WORKER Syncope and collapse BASIC METABOLIC PANEL (CALCIUM TOTAL) AM Draw 02/17/2022 6:12 AM TOOL MAINTENANCE WORKER Syncope and collapse MRI CERVICAL SPINE WO CONTRAST Routine 02/16/2022 7:19 PM TOOL MAINTENANCE WORKER Degeneration of cervical intervertebral disc TSH REFLEX FREE T4 Routine 02/16/2022 7: 57 AM TOOL MAINTENANCE WORKER Syncope and collapse HEMOGLOBIN A1C Routine 02/16/2022 7:57 AM TOOL MAINTENANCE WORKER DM (diabetes mellitus) type II, controlled, with peripheral vascular disorder (HCC) CBC W/O DIFFERENTIAL AM Draw 02/16/2022 7:57 AM TOOL MAINTENANCE WORKER Syncope and collapse RENAL FUNCTION PANEL Routine 02/16/2022 7:57 AM TOOL MAINTENANCE WORKER Syncope and collapse MAGNESIUM BLOOD Routine 02/16/2022 7:57 AM TOOL MAINTENANCE WORKER Syncope and collapse GLUCOSE - POINT OF CARE Routine 02/16/2022 6:57 AM TOOL MAINTENANCE WORKER GLUCOSE - POINT OF CARE Routine 02/16/2022 1:53 AM TOOL MAINTENANCE WORKER CT CERVICAL SPINE WO CONTRAST Routine 02/15/2022 10:41 PM TOOL MAINTENANCE WORKER Multiple closed fractures of facial bone, initial encounter (HCC) GLUCOSE - POINT OF CARE Routine 02/15/2022 8:42 PM TOOL MAINTENANCE WORKER GLUCOSE - POINT OF CARE Routine 02/15/2022 6:52 PM TOOL MAINTENANCE WORKER SARS-COV-2 (COVID-19)+INFLU A+B PCR RAPID STAT 02/15/2022 3:07 PM TOOL MAINTENANCE WORKER Trauma VAS CAROTID DUPLEX BILATERAL Routine 02/15/2022 1:56 PM TOOL MAINTENANCE WORKER Syncope and collapse GLUCOSE - POINT OF CARE Routine 02/15/2022 12:00 PM TOOL MAINTENANCE WORKER CARDIAC EKG ORDER 02/15/2022 11: 30 AM TOOL MAINTENANCE WORKER ECHO COMPLETE Routine 02/15/2022 11:27 AM TOOL MAINTENANCE WORKER Syncope and collapse URINALYSIS REFLEX TO MICROSCOPIC NO CULTURE STAT 02/15/2022 3:35 AM TOOL MAINTENANCE WORKER EKG 12-LEAD Routine 02/15/2022 12:55 AM TOOL MAINTENANCE WORKER Syncope and collapse TSH REFLEX FREE T4 STAT 02/14/2022 11 :55 PM TOOL MAINTENANCE WORKER TROPONIN I STAT 02/14/2022 11:55 PM TOOL MAINTENANCE WORKER CBC W AUTO DIFFERENTIAL STAT 02/14/2022 11:55 PM TOOL MAINTENANCE WORKER COMPREHENSIVE METABOLIC PANEL STAT 02/14/2022 11:55 PM TOOL MAINTENANCE WORKER XR CHEST 1VW PORTABLE STAT 02/14/2022 11:25 PM TOOL MAINTENANCE WORKER Syncope and collapse documented in this encounter Results * CORTISOL BLOOD AM (02/19/2022 5:36 AM TOOL MAINTENANCE WORKER) [facility] Cortisol AM 5.4 3.7 - 19.4 ug/dL 02/19/2022 6:54 AM TOOL MAINTENANCE WORKER [facility] Blood BLOOD SPECIMEN / Unknown Lab Venipuncture / Unknown 02/19/2022 5:36 AM TOOL MAINTENANCE WORKER 02/19/2022 6:06 AM TOOL MAINTENANCE WORKER Narrative [facility] - 02/19/2022 6:54 AM TOOL MAINTENANCE WORKER Normal cortisol levels are generally highest in the morning hours and lowest from late evening through the business intelligence director 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 ??The PM measurements of cortisol run approximately one-half to one-third of the AM values. Meet Flores PA-C LAB - CHEMISTRY ORDERABLES Performing Organization Address [facility] de Phone Number [address] [address], [facility] [phone] * CORTISOL BLOOD AM (02/19/2022 5:35 AM [facility]) Cortisol AM 5.8 3.7 - 19.4 ug/dL 02/19/2022 6:27 AM [facility] Blood BLOOD SPECIMEN / Unknown Lab Venipuncture / Unknown 02/19/2022 5:35 AM TOOL MAINTENANCE WORKER 02/19/2022 5:35 AM [facility] Narrative [facility] - 02/19/2022 6:27 AM TOOL MAINTENANCE WORKER Normal cortisol levels are generally highest in the morning hours and lowest from late evening through the business intelligence director 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 ??The PM measurements of cortisol run approximately one-half to one-third of the AM values. Meet Flores PA-C LAB - CHEMISTRY ORDERABLES Performing Organization Address [facility] de Phone Number [address] [address], [facility] [phone] * (ABNORMAL) BASIC METABOLIC PANEL (CALCIUM TOTAL) (02/19/2022 4:29 AM [facility]) BUN 18 7 - 26 mg/dL 02/19/2022 5:08 AM [facility] Creatinine 1.58(H) 0.56 - 0.96 mg/dL 02/19/2022 5:08 AM [facility] Sodium 132(L) 136 - 145 mmol/L 02/19/2022 5:08 AM [facility] Potassium 4.5 3.5 - 4.5 mmol/L 02/19/2022 5:08 AM [facility] Chloride 104 98 - 107 mmol/L 02/19/2022 5:08 AM [facility] CO2 22 22 - 29 mmol/L 02/19/2022 5:08 AM [facility] Glucose 83 70 - 115 mg/dL 02/19/2022 5:08 AM [facility] Calcium 9.1 8.4 - 10.2 mg/dL 02/19/2022 5:08 AM [facility] Anion Gap 11 - 02/19/2022 5:08 AM [facility] BUN/Creatinine Ratio 11 - 02/19/2022 5:08 AM [facility] Osmolality Calculated 275 270 - 300 mOsm/kg 02/19/2022 5:08 AM [facility] eGFR by CKD-EPI 35(L) >=90 mL/min/1.7 3 m2 02/19/2022 5:08 AM [facility] Blood BLOOD SPECIMEN / Unknown Lab Venipuncture / Unknown 02/19/2022 4:29 AM TOOL MAINTENANCE WORKER 02/19/2022 4:39 AM TOOL MAINTENANCE WORKER Meet Flores PA-C LAB - CHEMISTRY ORDERABLES [address] [address], [facility] [phone] * CORTISOL BLOOD AM (02/19/2022 4:29 AM TOOL MAINTENANCE WORKER) Cortisol AM 6.9 3.7 - 19.4 ug/dL 02/19/2022 5:23 AM [facility] Blood BLOOD SPECIMEN / Unknown Lab Venipuncture / Unknown 02/19/2022 4:29 AM TOOL MAINTENANCE WORKER 02/19/2022 4:38 AM TOOL MAINTENANCE WORKER Narrative [facility] - 02/19/2022 5:23 AM TOOL MAINTENANCE WORKER Normal cortisol levels are generally highest in the morning hours and lowest from late evening through the business intelligence director 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 ??The PM measurements of cortisol run approximately one-half to one-third of the AM values. Meet C Mark PA-C LAB - CHEMISTRY ORDERABLES [facility] [address] [place] [address], [place] [phone] * (ABNORMAL) BASIC METABOLIC PANEL (CALCIUM TOTAL) (02/18/2022 12:18 PM [facility]) BUN 19 7 - 26 mg/dL 02/18/2022 1:05 PM [facility] Creatinine 1.55(H) 0.56 - 0.96 mg/dL 02/18/2022 1:05 PM [facility] Sodium 129(L) 136 - 145 mmol/L 02/18/2022 1:05 PM [facility] Potassium 4.8(H) 3.5 - 4.5 mmol/L 02/18/2022 1:05 PM [facility] Chloride 98 98 - 107 mmol/L 02/18/2022 1:05 PM [facility] CO2 21(L) 22 - 29 mmol/L 02/18/2022 1:05 PM [facility] Glucose 137(H) 70 - 115 mg/dL 02/18/2022 1:05 PM [facility] Calcium 9.5 8.4 - 10.2 mg/dL 02/18/2022 1:05 PM [facility] Anion Gap 15 8 - 18 02/18/2022 1:05 PM [facility] BUN/Creatinine Ratio 12 7 - 23 02/18/2022 1:05 PM [facility] Osmolality Calculated 272 270 - 300 mOsm/kg 02/18/2022 1:05 PM [facility] eGFR by CKD-EPI 35(L) >=90 mL/min/1.7 3 m2 02/18/2022 1:05 PM [facility] Blood BLOOD SPECIMEN / Unknown Lab Venipuncture / Unknown 02/18/2022 12:18 PM TOOL MAINTENANCE WORKER 02/18/2022 12:34 PM [facility] Meet Flores PA-C LAB - CHEMISTRY ORDERABLES [facility] [address] [place] [address], [place] [phone] * (ABNORMAL) BASIC METABOLIC PANEL (CALCIUM TOTAL) (02/18/2022 6:58 AM TOOL MAINTENANCE WORKER) BUN 19 7 - 26 mg/dL 02/18/2022 8:07 AM [facility] Creatinine 1.60(H) 0.56 - 0.96 mg/dL 02/18/2022 8:07 AM [facility] Sodium 126(L) 136 - 145 mmol/L 02/18/2022 8:07 AM [facility] Potassium 4.5 3.5 - 4.5 mmol/L 02/18/2022 8:07 AM [facility] Chloride 95(L) 98 - 107 mmol/L 02/18/2022 8:07 AM [facility] CO2 23 22 - 29 mmol/L 02/18/2022 8:07 AM [facility] Glucose 81 70 - 115 mg/dL 02/18/2022 8:07 AM [facility] Calcium 9.2 8.4 - 10.2 mg/dL 02/18/2022 8:07 AM [facility] Anion Gap 13 8 - 18 02/18/2022 8:07 AM [facility] BUN/Creatinine Ratio 12 7 - 23 02/18/2022 8:07 AM [facility] Osmolality Calculated 263(L) 270 - 300 mOsm/kg 02/18/2022 8:07 AM [facility] eGFR by CKD-EPI 34(L) >=90 mL/min/1.7 3 m2 02/18/2022 8:07 AM [facility] Blood BLOOD SPECIMEN / Unknown Lab Venipuncture / Unknown 02/18/2022 6:58 AM TOOL MAINTENANCE WORKER 02/18/2022 7:41 AM [facility] Meet Flores PA-C LAB - CHEMISTRY ORDERABLES [facility] [address] [place] [address], [facility] [phone] * OSMOLALITY URINE (02/17/2022 2:08 PM TOOL MAINTENANCE WORKER) Osmolality Urine 234 50 - 1,200 mOsm/kg 02/17/2022 3:23 PM [facility] Urine URINE SPECIMEN OBTAINED BY CLEAN CATCH PROCEDURE / Unknown Collection / Unknown 02/17/2022 2:08 PM TOOL MAINTENANCE WORKER 02/17/2022 2:13 PM TOOL MAINTENANCE WORKER Narrative [facility] - 02/17/2022 3:23 PM TOOL MAINTENANCE WORKER QRY Meet Flores PA-C LAB - URINE CHEM ISTRY ORDERABLES Performing Organization Address City/[facility]/ZIP Co de Phone Number [address] [address], [facility] [phone] * SODIUM URINE RANDOM (02/17/2022 2:08 PM TOOL MAINTENANCE WORKER) Sodium Urine 55 Not Established mmol/L 02/17/2022 2:30 PM [facility] Urine URINE SPECIMEN OBTAINED BY CLEAN CATCH PROCEDURE / Unknown Collection / Unknown 02/17/2022 2:08 PM TOOL MAINTENANCE WORKER 02/17/2022 2:13 PM TOOL MAINTENANCE WORKER Meet Flores PA-C LAB - URINE CHEM ISTRY ORDERABLES Performing Organization Address [facility]/ZIP Co de Phone Number [address] [address], [place] [phone] * (ABNORMAL) CBC W/O DIFFERENTIAL (02/17/2022 6:12 AM TOOL MAINTENANCE WORKER) WBC 5.8 3.5 - 10.5 10? 3 /uL 02/17/2022 6:53 AM [facility] RBC 3.18(L) 3.80 - 5.20 10? 6 /uL 02/17/2022 6:53 AM [facility] Hemoglobin 9.6(L) 12.0 - 15.6 g/dL 02/17/2022 6:53 AM [facility] Hematocrit 28.3(L) 35.0 - 45.0 % 02/17/2022 6:53 AM [facility] MCV 89.0 80.7 - 98.3 fL 02/17/2022 6:53 AM [facility] MCH 30.2 26.7 - 34.0 pg 02/17/2022 6:53 AM [facility] MCHC 33.9 30.8 - 35.9 g/dL 02/17/2022 6:53 AM [facility] RDW-SD 41.6 36.0 - 50.0 fL 02/17/2022 6:53 AM [facility] RDW-CV 12.7 11.2 - 14.8 % 02/17/2022 6:53 AM [facility] Platelet Count 259 150 - 400 10? 3 /uL 02/17/2022 6:53 AM [facility] MPV 9.9 9.4 - 12.9 fL 02/17/2022 6:53 AM [facility] nRBC Absolute 0.00 0 10? 3 /uL 02/17/2022 6:53 AM [facility] nRBC Auto 0.0 0 /100 WBC 02/17/2022 6:53 AM [facility] Blood BLOOD SPECIMEN / Unknown Lab Venipuncture / Unknown 02/17/2022 6:12 AM TOOL MAINTENANCE WORKER 02/17/2022 6:48 AM [facility] Meet Flores PA-C LAB - HEMATOLOGY ORDERABLES Performing Organization Address City/State/[facility] Co de Phone Number [facility] [address] [place] [address], [facility] [phone] * (ABNORMAL) BASIC METABOLIC PANEL (CALCIUM TOTAL) (02/17/2022 6:12 AM [facility]) BUN 21 7 - 26 mg/dL 02/17/2022 7:13 AM [facility] Creatinine 1.64(H) 0.56 - 0.96 mg/dL 02/17/2022 7:13 AM [facility] Sodium 128(L) 136 - 145 mmol/L 02/17/2022 7:13 AM [facility] Potassium 4.8(H) 3.5 - 4.5 mmol/L 02/17/2022 7:13 AM [facility] Chloride 97(L) 98 - 107 mmol/L 02/17/2022 7:13 AM [facility] CO2 22 22 - 29 mmol/L 02/17/2022 7:13 AM [facility] Glucose 119(H) 70 - 115 mg/dL 02/17/2022 7:13 AM [facility] Calcium 9.3 8.4 - 10.2 mg/dL 02/17/2022 7:13 AM [facility] Anion Gap 14 8 - 18 02/17/2022 7:13 AM [facility] BUN/Creatinine Ratio 13 7 - 23 02/17/2022 7:13 AM [facility] Osmolality Calculated 270 270 - 300 mOsm/kg 02/17/2022 7:13 AM [facility] eGFR by CKD-EPI 33(L) >=90 mL/min/1.7 3 m2 02/17/2022 7:13 AM [facility] Blood BLOOD SPECIMEN / Unknown Lab Venipuncture / Unknown 02/17/2022 6:12 AM TOOL MAINTENANCE WORKER 02/17/2022 6:48 AM TOOL MAINTENANCE WORKER Meet Flores PA-C LAB - CHEMISTRY ORDERABLES [facility] [address] [place] [address], [facility] [phone] * MRI CERVICAL SPINE WO CONTRAST (02/16/2022 7:19 PM TOOL MAINTENANCE WORKER) Anatomical Region Laterality Modality Pelvis Magnetic Resonan ce 02/18/2022 1:46 PM TOOL MAINTENANCE WORKER Impressions 02/18/2022 2:03 PM TOOL MAINTENANCE WORKER IMPRESSION: 1. Degenerative changes of the spine [...] 02/18/2022 2:03 PM Narrative 02/18/2022 2:03 PM TOOL MAINTENANCE WORKER PROCEDURE: ??MRI CERVICAL SPINE WO CONTRAST, DATE/TIME OF EXAM: ??02/16/2022 7:20 PM, LOCATION ??[facility] INDICATION: M50.30: Degeneration of cervical intervertebral [...] DATE/TIME OF EXAM:02/16/2022 7:20 PM, LOCATION [facility] INDICATION: M50.30: Degeneration of cervical intervertebral [...] (ABNORMAL) CBC W/O DIFFERENTIAL (02/16/2022 7:57 AM TOOL MAINTENANCE WORKER) [facility] WBC 5.7 3.5 - 10.5 10? 3 /uL 02/16/2022 8:26 AM TOOL MAINTENANCE WORKER [facility] RBC 3.51(L) 3.80 - 5.20 10? 6 /uL 02/16/2022 8:26 AM [facility] Hemoglobin 10.5(L) 12.0 - 15.6 g/dL 02/16/2022 8:26 AM [facility] Hematocrit 31.8(L) 35.0 - 45.0 % 02/16/2022 8:26 AM [facility] MCV 90.6 80.7 - 98.3 fL 02/16/2022 8:26 AM [facility] MCH 29.9 26.7 - 34.0 pg 02/16/2022 8:26 AM [facility] MCHC 33.0 30.8 - 35.9 g/dL 02/16/2022 8:26 AM [facility] RDW-SD 41.6 36.0 - 50.0 fL 02/16/2022 8:26 AM [facility] RDW-CV 12.8 11.2 - 14.8 % 02/16/2022 8:26 AM [facility] Platelet Count 300 150 - 400 10? 3 /uL 02/16/2022 8:26 AM [facility] MPV 9.8 9.4 - 12.9 fL 02/16/2022 8:26 AM [facility] nRBC Absolute 0.00 0 10? 3 /uL 02/16/2022 8:26 AM [facility] nRBC Auto 0.0 0 /100 WBC 02/16/2022 8:26 AM [facility] Blood BLOOD SPECIMEN / Unknown Lab Venipuncture / Unknown 02/16/2022 7:57 AM [facility] 02/16/2022 8:15 AM [facility] Meet Flores PA-C LAB - HEMATOLOGY ORDERABLES [facility] [address] [place] [address], [facility] [phone] * HEMOGLOBIN A1C (02/16/2022 7:57 AM [facility]) Hemoglobin A1c 5.1 <=5.6 % 02/16/2022 11:17 AM TOOL MAINTENANCE WORKER [facility] Estimated Average Glucose 100 mg/dL 02/16/2022 11:17 AM TOOL MAINTENANCE WORKER [facility] Comment: HbA1c Interpretation: Normal : < 5.7% Pre-diabetes: 5.7-6.4% Diabetes: Equal to or greater than 6.5% Test results diagnostic of diabetes should be repeated for confirmation. Treatment target values recommended by ADA and other clinical organizations should be used to evaluate metabolic control in patients. Reference: [place] [employer], Standards of Care in Diabetes -2020 In patients 70 years and older consider HbA1c target range of 7.0-7.5% (Reference: Oswaldo Liz et al. JAMDA. 2012) The Sebia assay for the measurement of HbA1c is a National Glycohemoglobin Standardization Program (NGSP) certified method. Blood BLOOD SPECIMEN / Unknown Lab Venipuncture / Unknown 02/16/2022 7:57 AM TOOL MAINTENANCE WORKER 02/16/2022 8:14 AM TOOL MAINTENANCE WORKER Meet Flores PA-C LAB - CHEMISTRY ORDERABLES Performing Organization Address City/[facility]/ZIP Co de Phone Number [address] [address], [facility] [phone] * TSH REFLEX FREE T4 (02/16/2022 7:57 AM TOOL MAINTENANCE WORKER) TSH 1.522 0.350 - 4.940 uIU/mL 02/16/2022 9:01 AM [facility] Blood BLOOD SPECIMEN / Unknown Lab Venipuncture / Unknown 02/16/2022 7:57 AM TOOL MAINTENANCE WORKER 02/16/2022 8:15 AM TOOL MAINTENANCE WORKER Dagoberto Ordoñez MD LAB - CHEMISTRY ORDERABLES [address] [address], [facility] [phone] * MAGNESIUM BLOOD (02/16/2022 7:57 AM TOOL MAINTENANCE WORKER) Magnesium 1.8 1.6 - 2.6 mg/dL 02/16/2022 8:43 AM TOOL MAINTENANCE WORKER [facility] Blood BLOOD SPECIMEN / Unknown Lab Venipuncture / Unknown 02/16/2022 7:57 AM [facility] 02/16/2022 8:15 AM TOOL MAINTENANCE WORKER Dagoberto Ordoñez MD LAB - CHEMISTRY ORDERABLES [facility] [address] [place] [address], [facility] [phone] * (ABNORMAL) RENAL FUNCTION PANEL (02/16/2022 7:57 AM [facility]) BUN 27(H) 7 - 26 mg/dL 02/16/2022 8:43 AM [facility] Creatinine 1.77(H) 0.56 - 0.96 mg/dL 02/16/2022 8:43 AM [facility] Sodium 131(L) 136 - 145 mmol/L 02/16/2022 8:43 AM [facility] Potassium 5.0(H) 3.5 - 4.5 mmol/L 02/16/2022 8:43 AM [facility] Chloride 100 98 - 107 mmol/L 02/16/2022 8:43 AM [facility] CO2 24 22 - 29 mmol/L 02/16/2022 8:43 AM [facility] Glucose 88 70 - 115 mg/dL 02/16/2022 8:43 AM [facility] Albumin 3.6 3.4 - 5.0 g/dL 02/16/2022 8:43 AM [facility] Calcium 9.6 8.4 - 10.2 mg/dL 02/16/2022 8:43 AM [facility] Phosphorus 3.9 2.9 - 5.1 mg/dL 02/16/2022 8:43 AM [facility] Anion Gap 12 8 - 18 02/16/2022 8:43 AM [facility] BUN/Creatinine Ratio 15 7 - 23 02/16/2022 8:43 AM [facility] Osmolality Calculated 277 270 - 300 mOsm/kg 02/16/2022 8:43 AM [facility] eGFR by CKD-EPI 30(L) >=90 mL/min/1.7 3 m2 02/16/2022 8:43 AM [facility] Blood BLOOD SPECIMEN / Unknown Lab Venipuncture / Unknown 02/16/2022 7:57 AM TOOL MAINTENANCE WORKER 02/16/2022 8:15 AM TOOL MAINTENANCE WORKER Dagoberto Ordoñez MD LAB - CHEMISTRY ORDERABLES [facility] [address] [place] [address], [place] [phone] * GLUCOSE - POINT OF CARE (02/16/2022 6:57 AM TOOL MAINTENANCE WORKER) Glucose WB/POC 112 70 - 115 mg/dL 02/16/2022 6:59 AM TOOL MAINTENANCE WORKER [facility] Specimen Type Cap Fingerstick 2021 6:59 AM TOOL MAINTENANCE WORKER [facility] Blood BLOOD SPECIMEN / Unknown 02/16/2022 6:57 AM TOOL MAINTENANCE WORKER 02/16/2022 6:59 AM TOOL MAINTENANCE WORKER Marii Light MD LAB - POINT OF CAR E ORDERABLES [facility] [address] [place] [address], [place] [phone] * GLUCOSE - POINT OF CARE (02/16/2022 1:53 AM TOOL MAINTENANCE WORKER) Glucose WB/POC 80 70 - 115 mg/dL 02/16/2022 1:58 AM TOOL MAINTENANCE WORKER [facility] Specimen Type Cap Fingerstick 2021 1:58 AM TOOL MAINTENANCE WORKER [facility] Blood BLOOD SPECIMEN / Unknown 02/16/2022 1:53 AM TOOL MAINTENANCE WORKER 02/16/2022 1:57 AM TOOL MAINTENANCE WORKER Marii Light MD LAB - POINT OF CAR E ORDERABLES [facility] [address] [place] [address], [place] [phone] * CT CERVICAL SPINE WO CONTRAST (02/15/2022 10:41 PM TOOL MAINTENANCE WORKER) Anatomical Region Laterality Modality Spine Computed Tomogra phy 02/16/2022 2:09 AM TOOL MAINTENANCE WORKER Impressions 02/16/2022 2:29 AM TOOL MAINTENANCE WORKER IMPRESSION: 1.No acute fracture or traumatic malalignment [...] 02/16/2022 2:29 AM Narrative 02/16/2022 2:29 AM TOOL MAINTENANCE WORKER PROCEDURE: ??CT CERVICAL SPINE WO CONTRAST, DATE/TIME OF EXAM: ??02/15/2022 10:41 PM, LOCATION ??[facility] INDICATION: S02.92XA: Multiple closed fractures of facial bone, initial encounter ([facility]) ADDITIONAL CLINICAL INFORMATION: Ordering Provider Reason [...] DATE/TIME OF EXAM:02/15/2022 10:41 PM, LOCATION [facility] INDICATION: S02.92XA: Multiple closed fractures of facial bone, initial encounter ([facility]) ADDITIONAL CLINICAL INFORMATION: Ordering Provider Reason [...] left C3-C5 facets, right C3-C4 facets, and [id number] processes. DISCS: Osseous fusion of the C3-C5 [...] in moderate spinal canal stenosis at the C5-W9fdinj and mild spinal canal stenosis at the C3-C4, C6-C7, and C7-T1 levels. 3.Severe bilateral neuroforaminal narrowing at the C5-C6 level. > Interpreting Provider: Barbara Wallace DR on 02/16/2022 2:29 AM Meet Flores PA-C CT ORDERABLES * GLUCOSE - POINT OF CARE (02/15/2022 8:42 PM TOOL MAINTENANCE WORKER) Glucose WB/POC 92 70 - 115 mg/dL 02/15/2022 8:47 PM TOOL MAINTENANCE WORKER [facility] Specimen Type Cap Fingerstick 2021 8:47 PM TOOL MAINTENANCE WORKER [facility] Blood BLOOD SPECIMEN / Unknown 02/15/2022 8:42 PM TOOL MAINTENANCE WORKER 02/15/2022 8:47 PM TOOL MAINTENANCE WORKER Marii Light MD LAB - POINT OF CAR E ORDERABLES [facility] [address] [place] [id number], [facility] [phone] * (ABNORMAL) GLUCOSE - POINT OF CARE (02/15/2022 6:52 PM TOOL MAINTENANCE WORKER) Glucose WB/POC 134(H) 70 - 115 mg/dL 02/15/2022 6:57 PM TOOL MAINTENANCE WORKER [facility] Specimen Type Arterial 02/15/2022 6:57 PM TOOL MAINTENANCE WORKER [facility] Blood BLOOD SPECIMEN / Unknown 02/15/2022 6:52 PM TOOL MAINTENANCE WORKER 02/15/2022 6:57 PM TOOL MAINTENANCE WORKER Marii Light MD LAB - POINT OF CAR E ORDERABLES [facility] [address] [place] [address], [facility] [phone] * SARS-COV-2 (COVID-19)+INFLU A+B PCR RAPID (02/15/2022 3:07 PM TOOL MAINTENANCE WORKER) COVID-19 PCR Not detected Not detected 02/16/20 3:59 PM TOOL MAINTENANCE WORKER [facility] Influenza A Rapid WENDI Not Detected Not Detected 02/15/2022 3:59 PM TOOL MAINTENANCE WORKER [facility] Influenza B WENDI Rapid Not Detected Not Detected 02/15/2022 3:59 PM TOOL MAINTENANCE WORKER [facility] Microbiology SPECIMEN FROM NASOPHARYNGEAL STRUCTURE / Unknown Collection / Unknown 02/15/2022 3:07 PM TOOL MAINTENANCE WORKER 02/15/2022 3:10 PM TOOL MAINTENANCE WORKER Narrative [facility] - 02/15/2022 3:59 PM TOOL MAINTENANCE WORKER Influenza assay performed by Nucle[employer]. [...] acid amplification assay performance was validated by [facility]. This test has been authorized by [...] - MICROBIOLOGY O RDERABLES Performing Organization Address [facility]/ZIP Co de Phone Number [address] [address], [facility] [phone] * VAS CAROTID DUPLEX BILATERAL (02/15/2022 1:56 PM TOOL MAINTENANCE WORKER) Anatomical Region Laterality Modality Neck Intravascular Ul trasound 02/15/2022 12:0 2 PM TOOL MAINTENANCE WORKER Narrative Procedure Note Adolph Pineda MD - 02/16/2022 Dagoberto Ordoñez MD VASCULAR LAB ORD ERABLES * GLUCOSE - POINT OF CARE (02/15/2022 12:00 PM TOOL MAINTENANCE WORKER) Glucose WB/POC 85 70 - 115 mg/dL 02/15/2022 12:08 PM TOOL MAINTENANCE WORKER [facility] Specimen Type Cap Fingerstick 2021 12:08 PM TOOL MAINTENANCE WORKER [facility] Blood BLOOD SPECIMEN / Unknown 02/15/2022 12:00 PM TOOL MAINTENANCE WORKER 02/15/2022 12:08 PM TOOL MAINTENANCE WORKER Abeba Will DO LAB - POINT OF CARE ORDERABLES Performing Organization Address [facility]/ZIP Co de Phone Number [address] [address], [facility] [phone] * CARDIAC EKG ORDER (02/15/2022 11:30 AM TOOL MAINTENANCE WORKER) Narrative 02/15/2022 11:30 AM TOOL MAINTENANCE WORKER Ordered by an unspecified provider. Scanned Document CARDIAC SERVICES ORD ERABLES * ECHO COMPLETE (02/15/2022 11:27 AM TOOL MAINTENANCE WORKER) Anatomical Region Laterality Modality Chest Echo 02/15/2022 10:2 8 AM TOOL MAINTENANCE WORKER Narrative Procedure Note Corey Flowers MD - 02/15/2022 Dagoberto Ordoñez MD ECHOCARDIOGRAPHY RADIANT * (ABNORMAL) URINALYSIS REFLEX TO MICROSCOPIC NO CULTURE (02/15/2022 3:35 AM TOOL MAINTENANCE WORKER) Color UA Straw Straw, Yellow 02/15/2022 3:47 AM [facility] Clarity UA Clear Clear 02/15/2022 3:47 AM [facility] Specific [place] UA 1.008 1.005 - 1.030 02/15/2022 3:47 AM [facility] pH UA 5.0 5.0 - 8.0 pH 02/15/2022 3:47 AM [facility] Protein UA Negative Negative 02/15/2022 3:47 AM [facility] Glucose UA Negative Negative 02/15/2022 3:47 AM [facility] Ketone UA Negative Negative 02/15/2022 3:47 AM [facility] Bilirubin UA Negative Negative 02/15/2022 3:47 AM [facility] Blood UA Negative Negative 02/15/2022 3:47 AM [facility] Nitrite UA Negative Negative 02/15/2022 3:47 AM [facility] Leukocyte Esterase 1+(A) Negative 02/15/2022 3:47 AM [facility] Urobilinogen UA Negative Negative mg/dL 02/15/2022 3:47 AM [facility] RBC UA 0-2 None Seen, 0-2, 3-5 /HPF 02/15/2022 3:47 AM [facility] WBC UA 0-5 None Seen, 0-5 /HPF 02/15/2022 3:47 AM [facility] Bacteria UA Trace(A) None /HPF 02/15/2022 3:47 AM [facility] Squamous Epithelial Cells UA 0-2 None Seen, 0-2, 3-5 /HPF 02/15/2022 3:47 AM [facility] Urine URINE SPECIMEN OBTAINED BY CLEAN CATCH PROCEDURE / Unknown Collection / Unknown 02/15/2022 3:35 AM TOOL MAINTENANCE WORKER 02/15/2022 3:37 AM [facility] - 02/15/2022 3:47 AM TOOL MAINTENANCE WORKER Justo Sparrow MD LAB - URINALYSIS ORD ERABLES Performing Organization Address [facility]/ZIP Co de Phone Number [facility] [address] [place] [address], [facility] [phone] * EKG 12-LEAD (02/15/2022 12:55 AM TOOL MAINTENANCE WORKER) Ventricular Rate 73 BPM [facility] MUSE Atrial Rate 73 BPM [facility] MUSE P-R Interval 152 ms [facility] MUSE QRS Duration ms 78 ms [facility] MUSE Q-T Interval ms 372 ms [facility] MUSE QTC Calculation (Bezet) 409 ms SL MUSE Calculated P Empire 35 degrees SL MUSE Calculated R Empire 34 degrees [facility] MUSE Calculated T [place] 60 degrees [facility] MUSE Interpretation EKG NORMAL SINUS RHYTHM NORMAL ECG NO PREVIOUS ECGS AVAILABLE Confirmed by MENDEL LUNA MD ([id number]) on 02/15/2022 9:57:52 AM [facility] 02/15/2022 12:5 5 AM TOOL MAINTENANCE WORKER 02/15/2022 9:57 AM TOOL MAINTENANCE WORKER Justo Sparrow MD ECG ORDERABLES Performing Organization Address [facility] Co de Phone Number [facility] * TROPONIN I (02/14/2022 11:55 PM TOOL MAINTENANCE WORKER) Pathologist [facility] Troponin I 0.027 <0.032 ng/mL 02/15/2022 12:31 AM TOOL MAINTENANCE WORKER [facility] Blood BLOOD SPECIMEN / Unknown Venipuncture / Unknown 02/14/2022 11:55 PM TOOL MAINTENANCE WORKER 02/14/2022 11:58 PM TOOL MAINTENANCE WORKER Justo Sparrow MD LAB - CHEMISTRY ORDE RABLES Performing Organization Address [facility]/ZIP Co de Phone Number [facility] [address] [place] [address], [place] [phone] * TSH REFLEX FREE T4 (02/14/2022 11:55 PM TOOL MAINTENANCE WORKER) Pathologist [facility] TSH 0.749 0.350 - 4.940 uIU/mL 02/15/2022 12:44 AM [facility] Blood BLOOD SPECIMEN / Unknown Venipuncture / Unknown 02/14/2022 11:55 PM TOOL MAINTENANCE WORKER 02/14/2022 11:58 PM TOOL MAINTENANCE WORKER Justo Sparrow MD LAB - CHEMISTRY CHELO QUIGLEY [facility] Organization Address City/State/ZIP Co de Phone Number [facility] [address] [place] [address], [facility] [phone] * (ABNORMAL) COMPREHENSIVE METABOLIC PANEL (02/14/2022 11:55 PM TOOL MAINTENANCE WORKER) BUN 33(H) 7 - 26 mg/dL 02/15/2022 12:27 AM [facility] Creatinine 1.74(H) 0.56 - 0.96 mg/dL 02/15/2022 12:27 AM [facility] Sodium 132(L) 136 - 145 mmol/L 02/15/2022 12:27 AM [facility] Potassium 5.1(H) 3.5 - 4.5 mmol/L 02/15/2022 12:27 AM [facility] Chloride 101 98 - 107 mmol/L 02/15/2022 12:27 AM [facility] CO2 22 22 - 29 mmol/L 02/15/2022 12:27 AM [facility] Glucose 95 70 - 115 mg/dL 02/15/2022 12:27 AM [facility] Calcium 9.1 8.4 - 10.2 mg/dL 02/15/2022 12:27 AM [facility] Protein Total 6.0 6.0 - 8.3 g/dL 02/15/2022 12:27 AM [facility] Albumin 3.4 3.4 - 5.0 g/dL 02/15/2022 12:27 AM [facility] Bilirubin Total 0.5 0.2 - 1.2 mg/dL 02/15/2022 12:27 AM [facility] Alkaline Phosphatase 58 40 - 150 U/L 02/15/2022 12:27 AM [facility] ALT 13 5 - 55 U/L 02/15/2022 12:27 AM [facility] AST 16 5 - 34 U/L 02/15/2022 12:27 AM [facility] Anion Gap 14 8 - 18 02/15/2022 12:27 AM [facility] BUN/Creatinine Ratio 19 7 - 23 02/15/2022 12:27 AM [facility] Osmolality Calculated 281 270 - 300 mOsm/kg 02/15/2022 12:27 AM [facility] Albumin/Globulin Ratio 1.3 1.1 - 2.3 02/15/2022 12:27 AM [facility] eGFR by CKD-EPI 31(L) >=90 mL/min/1.7 3 m2 02/15/2022 12:27 AM [facility] Blood BLOOD SPECIMEN / Unknown Venipuncture / Unknown 02/14/2022 11:55 PM TOOL MAINTENANCE WORKER 02/14/2022 11:58 PM TOOL MAINTENANCE WORKER Justo Sparrow MD LAB - CHEMISTRY CHELO QUIGLEY [facility] Organization Address City/State/ZIP Co de Phone Number [facility] [address] [place] [phone] [phone] * (ABNORMAL) CBC W AUTO DIFFERENTIAL (02/14/2022 11:55 PM TOOL MAINTENANCE WORKER) WBC 9.5 3.5 - 10.5 10? 3 /uL 02/15/2022 12:08 AM [facility] RBC 3.35(L) 3.80 - 5.20 10? 6 /uL 02/15/2022 12:08 AM [facility] Hemoglobin 9.9(L) 12.0 - 15.6 g/dL 02/15/2022 12:08 AM [facility] Hematocrit 30.1(L) 35.0 - 45.0 % 02/15/2022 12:08 AM [facility] MCV 89.9 80.7 - 98.3 fL 02/15/2022 12:08 AM [facility] MCH 29.6 26.7 - 34.0 pg 02/15/2022 12:08 AM [facility] MCHC 32.9 30.8 - 35.9 g/dL 02/15/2022 12:08 AM [facility] RDW-SD 41.4 36.0 - 50.0 fL 02/15/2022 12:08 AM [facility] RDW-CV 12.7 11.2 - 14.8 % 02/15/2022 12:08 AM [facility] Platelet Count 304 150 - 400 10? 3 /uL 02/15/2022 12:08 AM [facility] MPV 9.6 9.4 - 12.9 fL 02/15/2022 12:08 AM [facility] nRBC Absolute 0.00 0 10? 3 /uL 02/15/2022 12:08 AM [facility] nRBC Auto 0.0 0 /100 WBC 02/15/2022 12:08 AM [facility] Neutrophils % 72.8(H) 35.0 - 70.0 % 02/15/2022 12:08 AM [facility] Lymphocytes % 15.3(L) 20.0 - 43.0 % 02/15/2022 12:08 AM [facility] Monocytes % 8.9 5.0 - 13.0 % 02/15/2022 12:08 AM [facility] Eosinophils % 2.3 0.0 - 6.0 % 02/15/2022 12:08 AM [facility] Basophil % 0.3 0.0 - 2.0 % 02/15/2022 12:08 AM [facility] Neutrophils Absolute 6.91 1.60 - 7.00 10? 3 /uL 02/15/2022 12:08 AM [facility] Lymphocyte Absolute 1.45 1.10 - 3.90 10? 3 /uL 02/15/2022 12:08 AM [facility] Monocytes Absolute 0.85 0.26 - 1.07 10? 3 /uL 02/15/2022 12:08 AM [facility] Eosinophils Absolute 0.22 0.00 - 0.47 10? 3 /uL 02/15/2022 12:08 AM [facility] Basophils Absolute 0.03 0.00 - 0.08 10? 3 /uL 02/15/2022 12:08 AM [facility] Immature Granulocytes % 0.4 0.0 - 1.0 % 02/15/2022 12:08 AM TOOL MAINTENANCE WORKER [facility] Immature Granulocytes Absolute 0.04 02/15/2022 12:08 AM TOOL MAINTENANCE WORKER [facility] Blood BLOOD SPECIMEN / Unknown Venipuncture / Unknown 02/14/2022 11:55 PM TOOL MAINTENANCE WORKER 02/14/2022 11:58 PM TOOL MAINTENANCE WORKER Justo Sparrow MD LAB - HEMATOLOGY ORD ERABLES Performing Organization Address [facility]/State/ZIP Co de Phone Number [facility] [address] [place] [address], [facility] [phone] * XR CHEST 1VW PORTABLE (02/14/2022 11:25 PM TOOL MAINTENANCE WORKER) Anatomical Region Laterality Modality Chest Radiographic Vivian ging 02/14/2022 11:2 4 PM TOOL MAINTENANCE WORKER Narrative 02/15/2022 9:10 AM TOOL MAINTENANCE WORKER PROCEDURE: ??XR CHEST 1VW PORTABLE, DATE/TIME OF EXAM: ??02/14/2022 11:25 PM, LOCATION ??[facility] INDICATION: R55: Syncope and collapse ADDITIONAL CLINICAL [...] glenoid. > Dictated by Sushil Herrera MD (student services vice president). I, Tony Hansen MD have personally reviewed and interpreted this examination/study. > Interpreting Provider: Tony Hansen MD on 02/15/2022 9:10 AM Procedure Note Tony Hansen MD - 02/15/2022 PROCEDURE: XR CHEST 1VW PORTABLE, DATE/TIME OF EXAM: 02/14/2022 11:25PM, LOCATION [facility] INDICATION: R55: Syncope and collapse ADDITIONAL CLINICAL [...] glenoid. > Dictated by Sushil Herrera MD (student services vice president). I, Tony Hansen MD have [...] before administration. $ Given 02/15/2022 11:23 AM TOOL MAINTENANCE WORKER 10 mL $ Given 02/15/2022 11:09 AM TOOL MAINTENANCE WORKER 10 mL 0.9% NaCl injection 3 mL 3 mL, Intracatheter, EVERY 8 HOURS, First dose on Jeanette 02/15/22 at 0600, Until Discontinued, Flush peripheral IV catheter with 3 mL of normal saline every 8 hours. $ Given 02/19/2022 5:39 AM TOOL MAINTENANCE WORKER 3 mL $ Given 02/18/2022 10:24 PM TOOL MAINTENANCE WORKER 3 mL $ Given 02/18/2022 1:46 PM TOOL MAINTENANCE WORKER 3 mL 0.9% NaCl IV bolus 500 mL, at 967.74 mL/hr, Administer over 31 Minutes, ONCE, 1 dose, On Jeanette 02/15/22 at 1045 $ Bolus New Bag 02/15/2022 10:20 AM TOOL MAINTENANCE WORKER 500 mL 967.74 mL/hr acetaminophen (Tylenol) tablet [...] the MAR. $ Given 02/19/2022 8:36 AM TOOL MAINTENANCE WORKER 650 mg $ Given 02/17/2022 8:56 AM TOOL MAINTENANCE WORKER 650 mg $ Given 02/16/2022 10:57 PM TOOL MAINTENANCE WORKER 650 mg buPROPion XL 24hr (Wellbutrin-XL) tablet 150 mg 150 mg, Oral, DAILY, First dose on Jeanette 02/15/22 at 0900, Until Discontinued, Do not crush, chew, or cut in half. $ Given 02/19/2022 8:37 AM TOOL MAINTENANCE WORKER 150 mg $ Given 02/18/2022 8:59 AM TOOL MAINTENANCE WORKER 150 mg $ Given 02/17/2022 8:54 AM TOOL MAINTENANCE WORKER 150 mg calcitriol (Rocaltrol) capsule 0.25 mcg 0.25 mcg, Oral, EVERY MON, WED AND SAT, First dose on Sat02/16/22 at 1700, Until Discontinued $ Given 02/16/2022 4:04 PM TOOL MAINTENANCE WORKER 0.25 mcg citalopram (CeleXA) tablet 20 mg 20 mg, Oral, DAILY, First dose on Jeanette 02/15/22 at 0900, Until Discontinued $ Given 02/19/2022 8:37 AM TOOL MAINTENANCE WORKER 20 mg $ Given 02/18/2022 8:59 AM TOOL MAINTENANCE WORKER 20 mg $ Given 02/17/2022 8:54 AM TOOL MAINTENANCE WORKER 20 mg cosyntropin (Cortrosyn) injection 0.25 mg 0.25 mg, Intravenous, ONCE, 1 dose, On Sat02/19/22 at 0430, Do not administer until after baseline cortisol level has been drawn. IntraMUSCular injection reconstitute with 1 mL NS IntraVENous injection dilute in 2 to 5 mL of NS, inject over 2 min $ Given 02/19/2022 5:39 AM TOOL MAINTENANCE WORKER 0.25 mg dextrose 10 % IV bolus [...] laceration area $ Given 02/19/2022 1:46 PM TOOL MAINTENANCE WORKER $ Given 02/19/2022 8:42 AM TOOL MAINTENANCE WORKER $ Given 02/18/2022 8:20 PM TOOL MAINTENANCE WORKER escitalopram (Lexapro) tablet 20 mg 20 mg, Oral, DAILY, First dose on Sat02/15/22 at 0900, Until Discontinued $ Given 02/19/2022 8:38 AM TOOL MAINTENANCE WORKER 20 mg $ Given 02/18/2022 8:59 AM TOOL MAINTENANCE WORKER 20 mg $ Given 02/17/2022 8:54 AM TOOL MAINTENANCE WORKER 20 mg furosemide (Lasix) tablet 10 mg 10 mg, Oral, DAILY, First dose on Sat02/15/22 at 0900, Until Discontinued $ Given 02/19/2022 8:38 AM TOOL MAINTENANCE WORKER 10 mg $ Given 02/17/2022 8:54 AM TOOL MAINTENANCE WORKER 10 mg $ Given 02/15/2022 8:21 AM TOOL MAINTENANCE WORKER 10 mg heparin injection 5,000 Units 5,000 Units, Subcutaneous, 3 TIMES DAILY, First dose on Sat02/15/22 at 1400, Until Discontinued $ Given 02/19/2022 8:35 AM TOOL MAINTENANCE WORKER 5,000 Units Abd Right Lower Quadrant $ Given 02/18/2022 8:20 PM TOOL MAINTENANCE WORKER 5,000 Units A bd Left Lower Quadrant $ Given 02/18/2022 1:46 PM TOOL MAINTENANCE WORKER 5,000 Units R ight Arm latanoprost (Xalatan) 0.005 % ophthalmic solution 1 drop 1 drop, Each Eye, AT BEDTIME, First dose on Sat02/16/22 at 2100, Until Discontinued, Allow at least 5 minutes between administration of multiple ophthalmic products Once opened, store at room temperature $ Given 02/18/2022 8:20 PM TOOL MAINTENANCE WORKER 1 drop $ Given 02/17/2022 8:12 PM TOOL MAINTENANCE WORKER 1 drop $ Given 02/16/2022 11:55 PM TOOL MAINTENANCE WORKER 1 drop loratadine (Claritin) tablet 10 mg 10 mg, Oral, DAILY, First dose on Sat02/17/22 at 1130, Until Discontinued $ Given 02/19/2022 8:37 AM TOOL MAINTENANCE WORKER 10 mg $ Given 02/18/2022 8:59 AM TOOL MAINTENANCE WORKER 10 mg $ Given 02/17/2022 12:24 PM TOOL MAINTENANCE WORKER 10 mg ondansetron (disintegrating) (Zofran ODT) tablet [...] the MAR. $ Given 02/18/2022 11:43 PM TOOL MAINTENANCE WORKER 5 mg $ Given 02/18/2022 5:28 PM TOOL MAINTENANCE WORKER 5 mg $ Given 02/18/2022 1:48 PM TOOL MAINTENANCE WORKER 5 mg pantoprazole EC (Protonix) tablet 40 mg 40 mg, Oral, DAILY, First dose on Jeanette 02/15/22 at 1300, Until Discontinued, Do not crush, chew, or cut in half. $ Given 02/19/2022 8:38 AM TOOL MAINTENANCE WORKER 40 mg $ Given 02/18/2022 8:59 AM TOOL MAINTENANCE WORKER 40 mg $ Given 02/17/2022 8:54 AM TOOL MAINTENANCE WORKER 40 mg perflutren lipid microsphere (Definity) injection 0.5 mL 0.5 mL, Intravenous, INTRA-PROCEDURE MULTIPLE, 6 doses, Starting on Jeanette 02/15/22 at 1108, Until Sat02/19/22 at 1528, For Echo Procedure - Per Protocol Give slowly Shake well before using. $ Given 02/15/2022 11:12 AM TOOL MAINTENANCE WORKER 0.5 mL QUEtiapine (SEROquel) tablet 200 mg 200 mg, Oral, DAILY, First dose on Jeanette 02/15/22 at 0900, Until Discontinued $ Given 02/19/2022 8:37 AM TOOL MAINTENANCE WORKER 200 mg $ Given 02/18/2022 8:59 AM TOOL MAINTENANCE WORKER 200 mg $ Given 02/17/2022 8:54 AM TOOL MAINTENANCE WORKER 200 mg sodium chloride tablet 2 g 2 g, Oral, 3 TIMES DAILY WITH MEALS, First dose on Sat02/18/22 at 0900, Until Discontinued $ Given 02/19/2022 11:14 AM TOOL MAINTENANCE WORKER 2 g $ Given 02/19/2022 8:37 AM TOOL MAINTENANCE WORKER 2 g $ Given 02/18/2022 5:28 PM TOOL MAINTENANCE WORKER 2 g documented in this encounter Active and Recently Administered Medications Times are shown in TOOL MAINTENANCE WORKER. Scheduled Medication Order 02/17/2022 02/18/2022 02/19/2022 0.9% NaCl injection 3 mL(Linked Group 1) 3 mL, Intracatheter, EVERY 8 HOURS, First dose on Jeanette 02/15/22 at 0600, Until Discontinued, Flush peripheral IV catheter with 3 mL of normal saline every 8 hours. 0648 ($ Given - Provider: Tyson Amado RN)1532 ($ Given - Provider: Victoria Cormier RN)2354 ($ Given - Provider: Tsyon Amado RN) 0529 ($ Given - Provider: [...] Provider: Tyson Amado, SANTI) saline nasal spray ([place]; Baby [place]) 0.65 % nasal spray 1 spray 1 [...] Under Investigation 02/15/2022 02/15/2022 02/15/2022 3:59 PM TOOL MAINTENANCE WORKER documented as of this encounter
--- OUTSIDE RECORDS SUMMARY | 2024-04-11 21:58 | XMS_ITS | Encounter Summary ---
Author Organization [facility] Address [address] [place] [address] Care Team Providers Care Supervisor Border Department Name Role Phone Karrie Phillips MD Primary Care Provider [phone] Reason for Visit * Reason Comments Pain Neck Encounter Details Date Type Department Care Team (Late st Contact Info) Description 03/13/2022 1:00 PM MAIL OFFICER Office Visit [facility] - Orthopedics [address] [place] [address], [place] [address] Deon Taylor MD [address] [place] [address] [phone] Cervical myelopathy (HCC) (Primary Dx) Social History [...] (142 lb 9.6 oz) 03/13/2022 12:52 PM MAIL OFFICER Height 154.9 cm (5' 1 ) 03/13/2022 12:52 PM MAIL OFFICER Body Mass Index 26.94 03/13/2022 12:52 PM MAIL OFFICER documented in this encounter Functional Status Functional [...] Anabell Avendaño, SANTI - 03/13/2022 1:42 PM MAIL OFFICER Kandace Cole 03/13/2022 Follow up: Our office will contact you with a surgery date and provide you with more specific instructions for surgery once the date is confirmed. Radha is Dr. Taylor's education administrative assistant and is your animal impersonator for scheduling your surgery. If you have not heard from her within a week, you may contact her at [phone]. We will help you schedule an appointment [...] date. Please contact Anabell Avendaño RN at [phone] or through [facility] if you have any furtherquestions or concerns. For medical emergencies please call [facility]. [facility] Orthopaedic office contact information: [facility] ([facility]) [address] [place] [address], [place] [address] [facility] [address] [place] [address], [place] [address] March 13, 2022 To Whom It May Concern: Please use this letter to document that Kandace Candace Cole, : 1950, was in to see Deon Taylor MD on 03/13/2022. Thank you. Sincerely, Deon Taylor MD [facility] CSM 1L OFFICER documented in this encounter Progress Notes * [...] for further surgery, blood clots, PE, stroke, UT, paralysis, . After we reviewed of the [...] 3 (Further screening recommended) Deon Taylor MD OFFICER * Bria Iniguez MD - 03/13/2022 1:04 PM CST [facility] Orthopedic Spine Surgery Clinic Note Kandace Cole, 72 year old, female : 1950 CSN: [id number] Primary Care Physician: Karrie Phillips MD, MD [...] 200 MG tablet ??? saline nasal spray ([place]; Baby [place]) 0.65 % nasal spray No current facility-administered [...] needfor further surgery, blood clots, PE, stroke, UT, paralysis, . After we reviewed of the risks a nd benefits the patient wished to proceed with the surgery as planned. - Will plan to proceed with C4-7 PISF with C5-6 laminectomies - Follow up for surgery Bria Iniguez MD 03/13/2022 OFFICER documented in this encounter Plan of Treatment Upcoming Encounters Date Type Department Care Team (Late st Contact Info) Description 06/02/2024 1:45 PM MAIL OFFICER Office Visit [facility] - Orthopedics [address] [place] [address], [place] [address] Deon Taylor MD [address] [place] [phone] documented as of this encounter Visit Diagnoses Diagnosis Cervical myelopathy (HCC)- Primary Cervical spondylosis with myelopathy documented in this encounter Care Teams Supervisor Border Department Relationship Specialty Start Date End Date Karrie Phillips MD [address] [place] [phone] PCP - General 03/13/22 documented as of this encounter
--- OUTSIDE RECORDS SUMMARY | 2024-04-11 21:58 | XMS_ITS | Encounter Summary ---
Author Organization [facility] Address [address] [place] [address] Care Team Providers Care Barrel Assembler Helper Name Role Phone Karrie Phillips MD Primary Care Provider [phone] Reason for Visit * Auth/Cert (Routine) Specialty Diagnoses / Procedures Referred By Everardo fried Referred To Contact Diagnoses Cervical myelopathy (HCC) cervical myelopathy Procedures FUSION POSTERIOR CERVICAL (PCF) Referral ID Status Reason Start Date Expiration Date Visits Re quested Visits Authorized [id number] 1 1 Encounter Details Date Type Department Care Team (Late st Contact Info) Description 06/04/2022 7:31 AM MEDICAL INSURANCE CODER Anesthesia Event [facility] [address] [place] [address] [place] [address] [place] [address] Marcos Rojas Anes Asst [address] [facility] [place] [address] Anesthesia Record Procedure Summary Procedure Name Responsible [...] and heating? Not hard at all 06/04/2022 [facility] - [...] Diagnosis Codes: * Cervical myelopathy (CMS/[facility]) [G95.9] Mental Status: awake, alert, oriented, [...] Needed NOTABLE EVENTS: No notable events documented. CAL INSURANCE CODER * Chilo Franklin MD - 05/15/2022 12:45 [...] stairs. Denies chest pain. Denies hx of [place], heart failure, arrhythmias, strokes, seizures. Other PMH [...] procedural Anesthetic Plan was discussed with the SUPERINTENDENT DRIVERS and resident. Overall additional findings/comments: Discussed risks [...] This list must include ALL known prescriptions, [id number], herbals, and vitamin/mineral/dietary (nutritional) supplements AND must [...] for the 05/15/22 encounter (Hospital Encounter) with [facility] 1 Medication Sig Last Dose ??? [...] closed fractures of facial bone, initial encounter ([facility]) 02/15/2022 Priority: Not Prioritized ??? Nausea [...] 12/07/2021 Priority: Not Prioritized ??? Systemic sclerosis ([facility]/HCC) 12/07/2021 Priority: Not Prioritized ??? Sprain of ankle 12/07/2021 Priority: Not Prioritized ??? Sciatica 12/07/2021 Priority: Not Prioritized ??? Recurrent major depression in remission ([facility]) 12/07/2021 Priority: Not Prioritized ??? Polyp of colon 12/07/2021 Priority: Not Prioritized ??? Perineal pain 12/07/2021 Priority: Not Prioritized ??? Nonexudative age-related macular degeneration 12/07/2021 Priority: Not Prioritized ??? 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 Multiple bruises 12/07/2021 Priority: Not Prioritized ??? Mixed collagen vascular disease ([facility]) 12/07/2021 Priority: Not Prioritized ??? Paronychia of toe of right foot 07/25/2021 Priority: Not Prioritized ??? Onychomycosis of toenail 07/17/2021 Priority: Not Prioritized ??? Chronic kidney disease 03/30/2019 Priority: Not Prioritized ??? Chronic obstructive pulmonary disease ([facility]) 03/30/2019 Priority: Not Prioritized ??? Hyposmolality 03/30/2019 Priority: Not Prioritized ??? Ulnar neuropathy 03/30/2019 Priority: Not Prioritized ??? Raynaud's disease 03/30/2019 Priority: Not Prioritized ??? Dyspnea on exertion 02/23/2019 Priority: Not Prioritized ??? Type 2 diabetes mellitus ([facility]) 02/23/2019 Priority: Not Prioritized ??? Type 2 diabetes mellitus with stage 3 chronic kidney disease, without long- term current use of insulin ([facility]) 02/23/2019 Priority: Not Prioritized ??? Mixed [...] Rotator Cuff Repair ??? 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 Patient has had a hysterectomy. Hysterectomy OB History No obstetric history on file. Covid Vaccine: Lab Results: Recent Labs Component Name 02/15/22 1507 SARSCOV2 Not detected Recent Labs Base Name 02/16/22 0657 [id number] SPECIMENTYPE Cap Fingerstick Recent Labs Component [...] PM and Within 6 months for AICD [place] Information needed (shrimp peeling machine operator, mode, indication for CIED, battery life, magnet function): If Biotronik device AND PM dependent AND surgical site above umbilicus then call local office at [phone] to schedule reprogramming of CIED (into asynchronous [...] reviewed Luiza Fernandez MD PAT evaluation end: CAL INSURANCE CODER documented in this encounter Procedure Notes * Marcos Rojas Anes Asst - 06/04/2022 9:09 AM CSTAssociated Order(s): ETT Placement Endotracheal Tube Placement: Patient Location: OR. Intubation Event Date/Time: 06/04/2022 7:44 AM Procedure: intubation ([id number]). Procedure Section: Sedation: under general anesthesia. Indications [...] Theodore CEJA performed intubation under direct supervision.. CAL INSURANCE CODER * Marcos Rojas Anes Asst - 06/04/2022 9:08 AM CSTAssociated Order(s): Arterial Line Placement Arterial Line Placement Procedure Note Patient Location: OR. Procedure: Arterial Line ([id number]). Procedure Section Indications: continuous blood pressure monitoring [...] procedure Provider #1: Marcos Rojas Anes Asst. CAL INSURANCE CODER documented in this encounter Miscellaneous Notes * Addendum Note - Brien Madrid DO - 06/05/2022 7:08 AM CST Addendum created 06/05/22707 by Brien Madrid DO Clinical Note Signed CAL INSURANCE CODER * Anesthesia Transfer of Care - Adi Lee MD - 06/04/2022 11:47 AM MEDICAL INSURANCE CODER ANESTHESIA TRANSFER OF CARE NOTE Today's Date: [...] from the receiving PACUteam. Adi Lee MD CAL INSURANCE CODER documented in this encounter Plan of Treatment Upcoming Encounters Date Type Department Care Team (Late st Contact Info) Description 06/02/2024 1:45 PM MEDICAL INSURANCE CODER Office Visit [facility] - Orthopedics [address] [place] [address], [facility] [place] [address] Deon Taylor MD [address] [place] [address] documented as of this encounter Procedures Procedure Name Priority Date/Time Associated Diagnosis Comments ENDOTRACHEAL TUBE NOTE Routine 06/04/2022 9:09 AM MEDICAL INSURANCE CODER ARTERIAL LINE NOTE Routine 06/04/2022 9: 08 AM MEDICAL INSURANCE CODER documented in this encounter Results * ETT LINE PERFORMABLE (06/04/2022 9:09 AM MEDICAL INSURANCE CODER) Narrative Marcos Rojas Anes Asst - 06/04/2022 9:09 AM MEDICAL INSURANCE CODER Marcos Rojas Anes Asst ? 06/04/2022 ??9:11 AM Endotracheal Tube Placement: ? Patient Location: OR. Intubation Event Date/Time: ??06/04/2022 7:44 AM Procedure: intubation ([id number]). Procedure Section: ?? Sedation: under general anesthesia. [...] * ARTERIAL LINE PERFORMABLE (06/04/2022 9:08 AM MEDICAL INSURANCE CODER) Narrative Marcos Rojas Anes Asst - 06/04/2022 9:08 AM MEDICAL INSURANCE CODER Marcos Rojas Anes Asst ? 06/04/2022 ??9:08 AM Arterial Line Placement Procedure Note Patient Location: OR. Procedure: Arterial Line ([id number]). Procedure Section ?? Indications: continuous blood pressure [...] Intra-op $ New Bag/Syringe 06/04/2022 7:47 AM MEDICAL INSURANCE CODER albumin human 5 % infusion Intravenous, CONTINUOUS PRN, Starting on Sat06/04/22 at 0920, Until Sat06/04/22 at 1144, Anesthesia Intra-op $ New Bag/Syringe 06/04/2022 9:20 AM MEDICAL INSURANCE CODER ceFAZolin (Ancef) 2,000 mg in 50 mL IVPB Intravenous, PRN, Starting on Sat06/04/22 at 0821, Until Sat06/04/22 at 1144, Anesthesia Intra-op $ Given 06/04/2022 8:21 AM MEDICAL INSURANCE CODER 2 g ePHEDrine injection Intravenous, PRN, Starting on Sat06/04/22 at 0837, Until Sat06/04/22 at 1144, Anesthesia Intra-op $ Given 06/04/2022 9:36 AM MEDICAL INSURANCE CODER 10 mg $ Given 06/04/2022 9:10 AM MEDICAL INSURANCE CODER 10 mg $ Given 06/04/2022 9:00 AM MEDICAL INSURANCE CODER 10 mg famotidine (Pepcid) injection Intravenous, PRN, Starting on Sat06/04/22 at 0928, Until Sat06/04/22 at 1144, Anesthesia Intra-op $ Given 06/04/2022 9:28 AM MEDICAL INSURANCE CODER 20 mg fentaNYL (PF) (Sublimaze) injection Intravenous, PRN, Starting on Sat06/04/22 at 0738, Until Sat06/04/22 at 1144, Anesthesia Intra-op $ Given 06/04/2022 8:48 AM MEDICAL INSURANCE CODER 25 mcg $ Given 06/04/2022 8:00 AM MEDICAL INSURANCE CODER 25 mcg $ Given 06/04/2022 7:38 AM MEDICAL INSURANCE CODER 50 mcg glycopyrrolate (Robinul) injection Intravenous, PRN, Starting on Sat06/04/22 at 0926, Until Sat06/04/22 at 1144, Anesthesia Intra-op $ Given 06/04/2022 9:26 AM MEDICAL INSURANCE CODER 0.2 mg HYDROmorphone HCl-NaCl 2-0.9 MG/10ML-% SOSY Intravenous, PRN, Starting on Sat06/04/22 at 1058, Until Sat06/04/22 at 1144, Anesthesia Intra-op $ Given 06/04/2022 11:48 AM MEDICAL INSURANCE CODER 0.6 mg $ Given 06/04/2022 11:43 AM MEDICAL INSURANCE CODER 0.6 mg $ Given 06/04/2022 10:58 AM MEDICAL INSURANCE CODER 0.4 mg isolyte-S pH 7.4 infusion Intravenous, CONTINUOUS PRN, Starting on Sat06/04/22 at 0936, Until Sat06/04/22 at 1144, Anesthesia Intra-op $ New Bag/Syringe 06/04/2022 9:36 AM MEDICAL INSURANCE CODER lactated ringers infusion at 20 mL/hr, Intravenous, PRE-OP CONTINUOUS, Starting on Sat06/04/22 at 0545, Until Sat06/04/22 at 1314, Pre-op Restarted 06/04/2022 9:36 AM MEDICAL INSURANCE CODER $ New Bag/Syringe 06/04/2022 6:42 AM MEDICAL INSURANCE CODER 20 mL/ hr lidocaine HCl (PF) (Xylocaine MPF) 2 % injection Intravenous, PRN, Starting on Sat06/04/22 at 0739, Until Sat06/04/22 at 1144, Anesthesia Intra-op $ Given 06/04/2022 7:39 AM MEDICAL INSURANCE CODER 100 mg midazolam (Versed) injection Intravenous, PRN, Starting on Sat06/04/22 at 0816, Until Sat06/04/22 at 1144, Anesthesia Intra-op $ Given 06/04/2022 8:16 AM MEDICAL INSURANCE CODER 1 mg $ Given 06/04/2022 7:31 AM MEDICAL INSURANCE CODER 1 mg ondansetron (Zofran) injection Intravenous, PRN, Starting on Sat06/04/22 at 1055, Until Sat06/04/22 at 1144, Anesthesia Intra-op $ Given 06/04/2022 10:55 AM MEDICAL INSURANCE CODER 4 mg phenylephrine 100 mcg/mL injection Intravenous, PRN, Starting on Sat06/04/22 at 0813, Until Sat06/04/22 at 1144, Anesthesia Intra-op $ Given 06/04/2022 11:19 AM MEDICAL INSURANCE CODER 100 mcg $ Given 06/04/2022 11:05 AM MEDICAL INSURANCE CODER 200 mcg $ Given 06/04/2022 10:19 AM MEDICAL INSURANCE CODER 200 mcg phenylephrine 20 mg in 250 mL NaCl 0.9% infusion Intravenous, CONTINUOUS PRN, Starting on Sat06/04/22 at 0749, Until Sat06/04/22 at 1144, Anesthesia Intra-op Rate Change 06/04/2022 11:30 AM MEDICAL INSURANCE CODER 0.1 mcg/kg/min 4.538 mL/hr Rate Change 06/04/2022 11:24 AM MEDICAL INSURANCE CODER 0.3 mcg/kg/min 13.613 mL/hr Rate Change 06/04/2022 8:54 AM MEDICAL INSURANCE CODER 0.4 mcg/kg/min 18.15 mL /hr propofol (Diprivan) infusion Intravenous, CONTINUOUS PRN, Starting on Sat06/04/22 at 0749, Until Sat06/04/22 at 1144, Anesthesia Intra-op Rate Change 06/04/2022 10:40 AM MEDICAL INSURANCE CODER 180 mcg/kg/min 65.34 mL/hr Rate Change 06/04/2022 10:36 AM MEDICAL INSURANCE CODER 160 mcg/kg/min 58.08 m L/hr Rate Change 06/04/2022 10:33 AM MEDICAL INSURANCE CODER 150 mcg/kg/min 54.45 m L/hr propofol (Diprivan) injection Intravenous, PRN, Starting on Sat06/04/22 at 0739, Until Sat06/04/22 at 1144, Anesthesia Intra-op $ Given 06/04/2022 7:40 AM MEDICAL INSURANCE CODER 50 mg $ Given 06/04/2022 7:39 AM MEDICAL INSURANCE CODER 100 mg remifentanil (Ultiva) 2 mg in 0.9% NaCl IV 50 mL infusion Intravenous, CONTINUOUS PRN, Starting on Sat06/04/22 at 0749, Until Sat06/04/22 at 1144, Anesthesia Intra-op Rate Change 06/04/2022 11:04 AM MEDICAL INSURANCE CODER 0.02 mcg/kg/min 1.815 mL/hr Rate Change 06/04/2022 10:59 AM MEDICAL INSURANCE CODER 0.03 mcg/kg/min 2.723 mL/hr Rate Change 06/04/2022 10:54 AM MEDICAL INSURANCE CODER 0.1 mcg/kg/min 9.075 m L/hr succinylcholine (Anectine) injection Intravenous, PRN, Starting on Sat06/04/22 at 0741, Until Sat06/04/22 at 1144, Anesthesia Intra-op $ Given 06/04/2022 7:41 AM MEDICAL INSURANCE CODER 100 mg documented in this encounter Care Teams Barrel Assembler Helper Relationship Specialty Start Date End Date Karrie Phillips MD [address] [place] [address] PCP - General 03/13/22 documented as of this encounter
--- OUTSIDE RECORDS SUMMARY | 2024-04-11 21:58 | XMS_ITS | Encounter Summary ---
Author Organization [facility] Address [address] [place] [address] Care Team Providers Care Solutions Sales Consultant Name Role Phone Karrie Phillips MD Primary Care Provider [phone] Reason for Visit * Reason Comments Preop Exam Encounter Details Date Type Department Care Team (Late st Contact Info) Description 05/15/2022 2:30 PM AIRCRAFT TOOL MAKER Office Visit [facility] - Orthopedics [address] [place] [address], [place] [address] Deon Taylor MD [address] [place] [phone] Cervical myelopathy (HCC) (Primary Dx) Social History [...] (135 lb 12.8 oz) 05/15/2022 1:57 PM AIRCRAFT TOOL MAKER Height 154.9 cm (5' 1 ) 05/15/2022 1:57 PM AIRCRAFT TOOL MAKER Body Mass Index 25.66 05/15/2022 1:57 PM AIRCRAFT TOOL MAKER documented in this encounter Functional Status [...] (severe dysfunction) This note was transcribed using Mipagar dictation software and may include inaccuracies in internet application developer which were unrecognized and not corrected. Deon Taylor MD RAFT TOOL MAKER * Aleyda Rebollar MD - 05/15/2022 2:08 PM CST [facility] Orth[facility] Spine Surgery Clinic Note Kandace Cole, 72 year old, female : 1950 CSN: [id number] Primary Care Physician: Karrie Phillips MD, MD [...] 200 MG tablet ??? saline nasal spray ([place]; Baby [place]) 0.65 % nasal spray No current facility-administered [...] up for surgery Aleyda Rebollar MD 05/15/2022 RAFT TOOL MAKER documented in this encounter Plan of Treatment Upcoming Encounters Date Type Department Care Team (Late st Contact Info) Description 06/02/2024 1:45 PM AIRCRAFT TOOL MAKER Office Visit [facility] - Orthopedics [address] [place] [address], [place] [address] Deon Taylor MD [address] [place] [address] documented as of this encounter Visit Diagnoses Diagnosis Cervical myelopathy (HCC)- Primary Cervical spondylosis with myelopathy documented in this encounter Care Teams Solutions Sales Consultant Relationship Specialty Start Date End Date Karrie Phillips MD [address] [place] [address] PCP - General 03/13/22 documented as of this encounter
--- OUTSIDE RECORDS SUMMARY | 2024-04-11 21:58 | XMS_ITS | Encounter Summary ---
Author Organization [facility] Address [address] [facility] [place] [address] Care Team Providers Care Technical Intern Name Role Phone Karrie Phillips MD Primary Care Provider [phone] Encounter Details Date Type Department Care Team (Latest Contact Info) Description 05/15/2022 1:27 PM SKATING CARHOP - 05/15/2022 11:59 PM [facility] Hospital Encounter [facility] [address] [place] [phone] Unknown, Provider Discharge Disposition: Home or Self [...] mouth every evening 06/08/2022 saline nasal spray ([place]; Baby [place]) 0.65 % nasal spray [place] 1 (one) spray into each nostril as [...] st Contact Info) Description 06/02/2024 1:45 PM SKATING CARHOP Office Visit [facility] - Orthopedics [address] [place] [address], [facility] [place] [address] Deon Taylor MD [address] [place] [address] documented as of this encounter Procedures Procedure Name Priority Date/Time Associated Diagnosis Comments TYPE + SCREEN PANEL Routine 05/15/2022 1 :52 PM SKATING CARHOP Preop examination CBC W/O DIFFERENTIAL Routine 05/15/2022 1:52 PM SKATING CARHOP Preop examination BASIC METABOLIC PANEL (CALCIUM TOTAL) Routine 05/15/2022 1:52 PM SKATING CARHOP Preop examination documented in this encounter Results * TYPE + SCREEN PANEL (05/15/2022 1:52 PM SKATING CARHOP) [facility] Antibody Screen NEG 3:13 PM SKATING CARHOP [facility] ABO Rh A POS 05/15/2022 3:13 PM SKATING CARHOP [facility] Blood Bank BLOOD SPECIMEN / Unknown Lab Venipuncture / Unknown 05/15/2022 1:52 PM SKATING CARHOP 05/15/2022 2:23 PM SKATING CARHOP Provider Unknown LAB - BLOOD BANK ORD ERABLES [facility] [address] [place] [address], [facility] [phone] * (ABNORMAL) BASIC METABOLIC PANEL (CALCIUM TOTAL) (05/15/2022 1:52 PM SKATING CARHOP) [facility] BUN 20 7 - 26 mg/dL 05/15/2022 [...] Lab Venipuncture / Unknown 05/15/2022 1:52 PM SKATING CARHOP 05/15/2022 2:20 PM SKATING CARHOP Provider Unknown LAB - CHEMISTRY [facility] [address] [place] [address], [facility] [phone] * (ABNORMAL) CBC W/O DIFFERENTIAL (05/15/2022 1:52 PM [facility]) WBC 6.6 3.5 - 10.5 10? 3 [...] 9.4 - 12.9 fL 05/15/2022 2:29 PM SKATING CARHOP [facility] nRBC Absolute 0.00 0 10? 3 /uL 05/15/2022 2:29 PM SKATING CARHOP [facility] nRBC Auto 0.0 0 /100 WBC 05/15/2022 2:29 PM SKATING CARHOP [facility] Blood BLOOD SPECIMEN / Unknown Lab Venipuncture / Unknown 05/15/2022 1:52 PM SKATING CARHOP 05/15/2022 2:20 PM SKATING CARHOP Provider Unknown LAB - HEMATOLOGY ORD ERABLES [facility] [address] [place] [address] [phone] documented in this encounter Visit Diagnoses Diagnosis Preop examination Preoperative examination, unspecified documented in this encounter Care Teams Technical Intern Relationship Specialty Start Date End Date Karrie Phillips MD [address] [place] [address] PCP - General 03/13/22 documented as of this encounter
--- OUTSIDE RECORDS SUMMARY | 2024-04-11 21:58 | XMS_ITS | Encounter Summary ---
Author Organization [facility] Address [address] [facility] [address] Care Team Providers Care Metal Bonding Helper Name Role Phone Karrie Phillips MD Primary Care Provider [phone] Encounter Details Date Type Department Care Team (Late st Contact Info) Description 02/16/2022 Ophth Exam [facility] [address] [place] [address] Pi, Renee Brink MD [address] [place] [phone] Social History Tobacco Use Types Packs/Day [...] st Contact Info) Description 06/02/2024 1:45 PM NAPHTHALENE OPERATOR HELPER Office Visit [facility] - Orthopedics [address] [place] [address], [facility] [place] [address] Deon Taylor MD [address] [place] [address] documented as of this encounter Visit Diagnoses Not on filedocumented in this encounter Care Teams Metal Bonding Helper Relationship Specialty Start Date End Date Karrie Phillips MD [address] [place] [id number] PCP - General 03/13/22 documented as of this encounter
--- OUTSIDE RECORDS SUMMARY | 2024-04-11 21:58 | XMS_ITS | Encounter Summary ---
Author Organization [facility] Address [address] [place] [address] Care Team Providers Care Counselor Camp Name Role Phone Karrie Phillips MD Primary Care Provider [phone] Encounter Details Date Type Department Care Team (Latest Contact Info) Description 03/13/2022 12:49 PM MONUMENT INSTALLER - 03/13/2022 11:59 PM [facility] Hospital Encounter [facility] [address] [facility] [address] Deon Taylor MD [address] [place] [address] Discharge Disposition: Home or Self Care Social [...] TABLET BY MOUTH DAILY saline nasal spray ([place]; Baby [place]) 0.65 % nasal spray [place] 1 (one) spray into each nostril as [...] st Contact Info) Description 06/02/2024 1:45 PM MONUMENT INSTALLER Office Visit [facility] - Orthopedics [address] [place] [address], [facility] [place] [address] Deon Taylor MD [address] [place] [address] documented as of this encounter Procedures Procedure Name Priority Date/Time Associated Diagnosis Comments XR CERVICAL SPINE 2 OR 3VW Routine 03/13/2022 1:02 PM MONUMENT INSTALLER Neck pain documented in this encounter Results * XR CERVICAL SPINE 2 OR 3VW (03/13/2022 1:02 PM MONUMENT INSTALLER) Anatomical Region Laterality Modality Spine Radiographic Vivian ging 03/13/2022 1:13 PM MONUMENT INSTALLER Impressions 03/13/2022 1:20 PM MONUMENT INSTALLER IMPRESSION: There is straightening of the cervical [...] 03/13/2022 1:20 PM Narrative 03/13/2022 1:20 PM MONUMENT INSTALLER PROCEDURE: ??XR CERVICAL SPINE 2 OR 3VW, DATE/TIME OF EXAM: ??03/13/2022 1:03 PM, LOCATION ??[facility] INDICATION: M54.2: Neck pain ADDITIONAL CLINICAL INFORMATION: Ordering Provider Reason For Exam: ??neck pain COMPARISON: CT dated 02/15/2022. Procedure Note Alejo Ahuja MD - 03/13/2022 PROCEDURE: XR CERVICAL SPINE 2 OR 3VW, DATE/TIME OF EXAM: 21:03 PM, LOCATION [facility] INDICATION: M54.2: Neck pain ADDITIONAL CLINICAL INFORMATION: [...] Cervicalgia documented in this encounter Care Teams Counselor Camp Relationship Specialty Start Date End Date Karrie Phillips MD [address] [place] [address] PCP - General 03/13/22 documented as of this encounter
--- OUTSIDE RECORDS SUMMARY | 2024-04-11 21:58 | XMS_ITS | Encounter Summary ---
Author Organization [facility] Address [address] [facility] [address] [facility] [place] [address] Care Team Providers Care Soft Metals Engraver Hand Name Role Phone Karrie Pihllips MD Primary Care Provider [phone] Encounter Details Date Type Department Care Team (Latest Contact Info) Description 05/15/2022 12:00 PM STEREOPLOTTER OPERATOR - 05/15/2022 1:26 PM [facility] Hospital Encounter [facility] PAT [address] [place] [id number] Unknown, Provider Discharge Disposition: Home or Self [...] Rojas Anes Asst 06/04/22 1230 by Jelly Calderno RN Urethral Catheter 06/04/22; 0805; EMS; Abad [...] Comments Blood Pressure 130/54 05/15/2022 12:22 PM STEREOPLOTTER OPERATOR Pulse 72 05/15/2022 12:22 PM STEREOPLOTTER OPERATOR Temperature 36.9 ??C (98.4 ??F) 05/15/2022 12:[address] Respiratory Rate 16 05/15/2022 12:22 PM STEREOPLOTTER OPERATOR Oxygen Saturation 100% 05/15/2022 12:22 PM STEREOPLOTTER OPERATOR Inhaled Oxygen Concentration - - Weight 61.3 kg (135 lb 3.2 oz) 05/15/2022 12:22 PM STEREOPLOTTER OPERATOR Height 154.9 cm (5' 1 ) 05/15/2022 12:22 PM STEREOPLOTTER OPERATOR Body Mass Index 25.55 05/15/2022 12:22 PM STEREOPLOTTER OPERATOR documented in this encounter Functional Status [...] mouth every evening 06/08/2022 saline nasal spray ([place]; [place]) 0.65 % nasal spray [place] 1 (one) spray into each nostril as [...] st Contact Info) Description 06/02/2024 1:45 PM STEREOPLOTTER OPERATOR Office Visit [facility] - Orthopedics [address] [place] [address], [facility] [place] [address] Deon Taylor MD [address] [place] [address] documented as of this encounter Results * TYPE + SCREEN PANEL (05/15/2022 1:52 PM STEREOPLOTTER OPERATOR) Antibody Screen NEG 3:13 PM STEREOPLOTTER OPERATOR [facility] BLOOD BANK LAB ABO Rh A POS 05/15/2022 3:13 PM STEREOPLOTTER OPERATOR [facility] BLOOD BANK LAB Blood Bank BLOOD SPECIMEN / Unknown Lab Venipuncture / Unknown 05/15/2022 1:52 PM STEREOPLOTTER OPERATOR 05/15/2022 2:23 PM STEREOPLOTTER OPERATOR Provider Unknown LAB - BLOOD BANK ORD ERABLES [facility] BLOOD BANK LAB [address] [place] [address], [facility] [phone] * (ABNORMAL) BASIC METABOLIC PANEL (CALCIUM TOTAL) (05/15/2022 1:52 PM STEREOPLOTTER OPERATOR) BUN 20 7 - 26 mg/dL 05/15/2022 2:49 PM [facility] Creatinine 1.53(H) 0.56 - 0.96 mg/dL 05/15/2022 2:49 PM [facility] Sodium 137 136 - 145 mmol/L 05/15/2022 2:49 PM [facility] Potassium 4.6(H) 3.5 - 4.5 mmol/L 05/15/2022 2:49 PM [facility] Chloride 103 98 - 107 mmol/L 05/15/2022 2:49 PM [facility] CO2 25 22 - 29 mmol/L 05/15/2022 2:49 PM [facility] Glucose 107 70 - 115 mg/dL 05/15/2022 2:49 PM [facility] Calcium 9.4 8.4 - 10.2 mg/dL 05/15/2022 2:49 PM [facility] Anion Gap 14 8 - 18 05/15/2022 2:49 PM [facility] BUN/Creatinine Ratio 13 7 - 23 05/15/2022 2:49 PM [facility] Osmolality Calculated 287 270 - 300 mOsm/kg 05/15/2022 2:49 PM [facility] eGFR by CKD-EPI 36(L) >=90 mL/min/1.7 3 m2 05/15/2022 2:49 PM [facility] Blood BLOOD SPECIMEN / Unknown Lab Venipuncture / Unknown 05/15/2022 1:52 PM STEREOPLOTTER OPERATOR 05/15/2022 2:20 PM STEREOPLOTTER OPERATOR Provider Unknown LAB - CHEMISTRY [facility] [address] [place] [address], [facility] [phone] * (ABNORMAL) CBC W/O DIFFERENTIAL (05/15/2022 1:52 PM STEREOPLOTTER OPERATOR) WBC 6.6 3.5 - 10.5 10? 3 /uL 05/15/2022 2:29 PM [facility] RBC 3.34(L) 3.80 - 5.20 10? 6 /uL 05/15/2022 2:29 PM [facility] Hemoglobin 9.9(L) 12.0 - 15.6 g/dL 05/15/2022 2:29 PM [facility] Hematocrit 30.4(L) 35.0 - 45.0 % 05/15/2022 2:29 PM [facility] MCV 91.0 80.7 - 98.3 fL 05/15/2022 2:29 PM [facility] MCH 29.6 26.7 - 34.0 pg 05/15/2022 2:29 PM [facility] MCHC 32.6 30.8 - 35.9 g/dL 05/15/2022 2:29 PM [facility] RDW-SD 43.3 36.0 - 50.0 fL 05/15/2022 2:29 PM [facility] RDW-CV 13.0 11.2 - 14.8 % 05/15/2022 2:29 PM [facility] Platelet Count 329 150 - 400 10? 3 /uL 05/15/2022 2:29 PM [facility] MPV 9.8 9.4 - 12.9 fL 05/15/2022 2:29 PM [facility] nRBC Absolute 0.00 0 10? 3 /uL 05/15/2022 2:29 PM [facility] nRBC Auto 0.0 0 /100 WBC 05/15/2022 2:29 PM [facility] Blood BLOOD SPECIMEN / Unknown Lab Venipuncture / Unknown 05/15/2022 1:52 PM STEREOPLOTTER OPERATOR 05/15/2022 2:20 PM STEREOPLOTTER OPERATOR Provider Unknown LAB - HEMATOLOGY ORD ERABLES [facility] [address] [place] [address], [facility] [phone] documented in this encounter Visit Diagnoses Diagnosis Preop examination- Primary Preoperative examination, unspecified documented in this encounter Care Teams Soft Metals Engraver Hand Relationship Specialty Start Date End Date Karrie Phillips MD [address] [place] [phone] PCP - General 03/13/22 documented as of this encounter
--- OUTSIDE RECORDS SUMMARY | 2024-04-11 21:58 | XMS_ITS | Encounter Summary ---
Author Organization [facility] Address [address] [place] [address] Care Team Providers Care Cnc Mill Set Up Operator Name Role Phone Unavailable Primary Care Provider Unavailabl e Reason for Visit * Reason Comments Pain Neck Encounter Details Date Type Department Care Team (Late st Contact Info) Description 12/07/2009 1:45 PM CDT Office Visit [facility] [address] [facility], [address] [place] [address] Dionisio Ryan MD [address] [address] Degeneration of Cervical Intervertebral Disc (Primary Dx) [...] on: 05/01/2010 Modules accepted: Level of Service PRESSER * Lynn Romero - 05/01/2010 10:59 AM CST Comment: Corrected CPT 53783 not allowed with MCR PRESSER * Dionisio Ryan MD - 12/07/2009 1:43 [...] st Contact Info) Description 06/02/2024 1:45 PM BUTT PRESSER Office Visit [facility] - Orthopedics [address] [place] [address], [place] [address] Deon Taylor MD [address] [place] [address] documented as of this encounter Visit Diagnoses Diagnosis Degeneration of cervical intervertebral disc- Primary documented in this encounter
--- OUTSIDE RECORDS SUMMARY | 2024-04-11 21:58 | XMS_ITS | Encounter Summary ---
Author Organization [facility] Address [address] [facility] [place] [address] Care Team Providers Care Sandblast Or Shotblast Equipment Tender Name Role Phone Karrie Phillips MD Primary Care Provider [phone] Encounter Details Date Type Department Care Team (Late st Contact Info) Description 03/21/2022 Orders Only [facility] - [facility]opedics [address] [facility], [place] [address] Anabell Avendaño, SANTI Cervical myelopathy [...] st Contact Info) Description 06/02/2024 1:45 PM CONSTRUCTION PROJECT MGR Office Visit [facility] - Orthopedics [address] [place] [address], [place] [address] Deon Taylor MD [address] [place] [address] documented as of this encounter Visit Diagnoses Diagnosis Cervical myelopathy (HCC)- Primary Cervical spondylosis with myelopathy documented in this encounter Care Teams Sandblast Or Shotblast Equipment Tender Relationship Specialty Start Date End Date Karrie Phillips MD [address] [place] [address] PCP - General 03/13/22 documented as of this encounter
--- OUTSIDE RECORDS SUMMARY | 2024-04-11 21:58 | XMS_ITS | Encounter Summary ---
Author Organization [facility] Address [address] [place] [address] Care Team Providers Care Harness Mender Name Role Phone Unavailable Primary Care Provider Unavailabl e Reason for Visit * Reason Comments Transitional Care Encounter Details Date Type Department Care Team (Late st Contact Info) Description 02/20/2022 Transitional Care Transitional Care at [address] [address] Madhavi Vega, shell sorter Social History Tobacco Use Types Packs/Day Years [...] telephone: Patient with recent IP discharge from [facility] on 02/19/22. RN attempted to reach Kandace Douglas today by telephone ([phone]) to complete 48 hour post discharge follow-up contact. RN was unable to reach Kandace at this time and this RN left voice message, encouraging patient to call this promotion writer back when available to provide update since last follow-up contact. RN will await call back from and will continue to follow Patient for [facility] clinic appointment. Call Duration: 1 min Madhavi Vega RN, BSN Manager News, [facility] Office: [phone] 02/20/2022 E REPAIRER documented in this encounter Plan of Treatment Upcoming Encounters Date Type Department Care Team (Late st Contact Info) Description 06/02/2024 1:45 PM CRATE REPAIRER Office Visit [facility] - Orthopedics [address] [place] [address], [facility] [address] Deon Taylor MD [address] [place] [address] documented as of this encounter Visit Diagnoses Not on filedocumented in this encounter
--- OUTSIDE RECORDS SUMMARY | 2024-04-11 21:58 | XMS_ITS | Encounter Summary ---
Author Organization [facility] Address [address] [place] [address] Care Team Providers Care Membership Assistant Name Role Phone Karrie Phillips MD Primary Care Provider [phone] Encounter Details Date Type Department Care Team (Late st Contact Info) Description 03/12/2022 Orders Only [facility] [address] [place] [address], [place] [address] Deon Taylor MD [address] [place] [phone] Neck pain Social History Tobacco Use Types [...] st Contact Info) Description 06/02/2024 1:45 PM WEB DEVELOPMENT INTERN Office Visit [facility] - Orthopedics [address] [place] [address], [place] [place] [address] Deon Taylor MD [address] [place] [address] documented as of this encounter Results * XR CERVICAL SPINE 2 OR 3VW (03/13/2022 1:02 PM WEB DEVELOPMENT INTERN) Anatomical Region Laterality Modality Spine Radiographic Vivian ging 03/13/2022 1:13 PM WEB DEVELOPMENT INTERN Impressions 03/13/2022 1:20 PM WEB DEVELOPMENT INTERN IMPRESSION: There is straightening of the cervical [...] 03/13/2022 1:20 PM Narrative 03/13/2022 1:20 PM WEB DEVELOPMENT INTERN PROCEDURE: ??XR CERVICAL SPINE 2 OR 3VW, DATE/TIME OF EXAM: ??03/13/2022 1:03 PM, LOCATION ??[facility] INDICATION: M54.2: Neck pain ADDITIONAL CLINICAL INFORMATION: Ordering Provider Reason For Exam: ??neck pain COMPARISON: CT dated 02/15/2022. Procedure Note Alejo Ahuja MD - 03/13/2022 PROCEDURE: XR CERVICAL SPINE 2 OR 3VW, DATE/TIME OF EXAM: 21:03 PM, LOCATION [facility] INDICATION: M54.2: Neck pain ADDITIONAL CLINICAL INFORMATION: [...] Cervicalgia documented in this encounter Care Teams Membership Assistant Relationship Specialty Start Date End Date Karrie Phillips MD [address] [place] [address] PCP - General 03/13/22 documented as of this encounter
--- OUTSIDE RECORDS SUMMARY | 2024-04-11 21:58 | XMS_ITS | Encounter Summary ---
Author Organization [facility] Address [address] [facility] [place] [address] Care Team Providers Care Technical Developer Name Role Phone Unavailable Primary Care Provider Unavailabl e Reason for Visit * Reason Comments Transitional Care Encounter Details Date Type Department Care Team (Late st Contact Info) Description 02/21/2022 Transitional Care Transitional Care at [address] [address] Madhavi Vega, supervisor photostat Social History Tobacco Use Types Packs/Day Years [...] telephone: Patient with recent IP discharge from [facility] on 02/19/22. RN attempted to reach Kandace Cole today by telephone ([phone]) to complete 48 hour post discharge follow-up contact. RN was unable to reach Kandace at this time and this RN left voice message, encouraging patient to call this tech writer back when available to provide update since last follow-up contact. RN will await call back from and will continue to follow Patient for Bridge clinic appointment. ?? Call Duration: 1 min Madhavi eVga RN, BSN Office Messenger, [facility] Office: [phone] 02/21/2022 ITAL ACCOUNT MANAGER documented in this encounter Plan of Treatment Upcoming Encounters Date Type Department Care Team (Late st Contact Info) Description 06/02/2024 1:45 PM HOSPITAL ACCOUNT MANAGER Office Visit [facility] [facility], [facility] [place] [address] Deon Taylor MD [address] [place] [address] documented as of this encounter Visit Diagnoses Not on filedocumented in this encounter
--- OUTSIDE RECORDS SUMMARY | 2024-04-11 21:58 | XMS_ITS | Encounter Summary ---
Author Organization [facility] Address [address] [facility] [place] [address] Care Team Providers Care Chemical Operations And Training Name Role Phone Karrie Phillips MD Primary Care Provider [phone] Encounter Details Date Type Department Care Team [...] Contact Info) Description 06/02/2024 1:45 PM MANAGER EDITORIAL Office Visit [facility] [address] [place] [address], [facility] [place] [address] Deon Taylor MD [address] [place] [phone] documented as of this encounter Visit Diagnoses Not on filedocumented in this encounter Care Teams Chemical Operations And Training Relationship Specialty Start Date End Date Karrie Phillips MD [address] [place] [phone] PCP - General 03/13/22 documented as of this encounter
--- OUTSIDE RECORDS SUMMARY | 2024-04-11 21:58 | XMS_ITS | Encounter Summary ---
Author Organization [employer] Address [address] [facility] [place] [address] Care Team Providers Care Bleach Tester Name Role Phone Karrie Phillips MD Primary Care Provider [phone] Reason for Visit * Auth/Cert (Routine) Specialty Diagnoses / Procedures Referred By Everardo fried Referred To Contact Diagnoses Cervical myelopathy (HCC) cervical myelopathy Procedures FUSION POSTERIOR CERVICAL (PCF) Referral ID Status Reason Start Date Expiration Date Visits Re quested Visits Authorized [id number] 1 1 Encounter Details Date Type Department Care Team (Late st Contact Info) Description 06/04/2022 7:30 AM PAST DUE ACCOUNTS CLERK - 06/04/2022 11:42 AM PAST DUE ACCOUNTS CLERK Surgery [facility] [address] [place] [address] Deon Taylor MD [address] [place] [address] C5-C6 laminectomy, C4-T2 posterior instrumented spinal fusion Surgery Details Date/Time Status Location OR Service Patient Class Case Class Case Type Trauma Case? 06/04/2022 7:30 AM Posted [facility] OR OR Orthopedics Roster Clerk Admit Surgical Elective > 5 days Panel 1 Procedure LRB Anes Op Region Wound Class Comments C5-C6 laminectomy, C4-T2 pos terior instrumented spinal fusion N/A General Clean Surgeon Surgeon Role Service Panel Deon Taylor MD Primary Orthopedics 1 Case Notes LATEX ALLERGY Special Needs PRONE, C-ARM CERVICAL ATTACHMENT JULIETH DONALD NEURO MONITORING POWER:4mm jose, 4mm cutter, 2mm cutter DEPUY: DELILAH MCGINNIS [phone]; EMERSON CUN[place]AM [phone]--reps notified mk 06/01 documented in this encounter [...] and heating? Not hard at all 06/04/2022 [facility] - Occupational [...] Comments Blood Pressure 112/62 06/04/2022 6:30 AM PAST DUE ACCOUNTS CLERK Pulse 86 06/04/2022 6:30 AM PAST DUE ACCOUNTS CLERK Temperature 36.7 ??C (98 ??F) 06/04/2022 6:22 AM PAST DUE ACCOUNTS CLERK Respiratory Rate 19 06/04/2022 6:30 AM PAST DUE ACCOUNTS CLERK Oxygen Saturation - - Inhaled Oxygen Concentration - - Weight 60.5 kg (133 lb 6.4 oz) 06/04/2022 5:52 A M PAST DUE ACCOUNTS CLERK Height 154.9 cm (5' 1 ) 06/04/2022 5:52 AM PAST DUE ACCOUNTS CLERK Body Mass Index 25.21 06/04/2022 5:52 AM PAST DUE ACCOUNTS CLERK documented in this encounter Functional Status Functional [...] Physician Discharge Summary Patient ID: Kandace Cole [id number] 72 year old 1950 Admit date: 06/04/2022 [...] PT/OT who are recommending rehab. Discharged to [facility]. ?? Consults: Orthopedics [...] 0.65 % nasal spray Commonly known as: [place]; [employer] [place] 1 (one) spray into each nostril as [...] sure to ask the pharmacy when you pick and shovel worker your prescription. You may also call your primary provider to ask if you should be taking your medication. FOLLOW-UP: It is important that you follow-up with all appointments that have been made on your behalf. These appointments include: Future Appointments Monday June 20, 2022 8:45 AM Appointment with Deon Taylor at [facility] 1L ([phone]) [address] [facility] [phone] If a follow-up with your primary care provider has not been scheduled, please schedule an appointment to follow-up on your hospitalization. If there is a conflict, please call the clinic ahead of time and reschedule the appointment. Regards, Internal Medicine Department [facility] [address] [place] [address] Orthopedic Spine Surgery Patient Discharge Instructions [...] please call 911. Follow up Contact Information: [facility] Orthopedic Surgery office contact information: [facility] Special[facility] Medicine ([facility]) [address] [facility], 1st [place] [address] [facility] [address] [facility] [address], [address] [place] [address] Visit our website at [email or web address] for information about our practice and an interactive health encyclopedia. Please visit [email or web address] to access your health record, ask questions, request medication refills, and request appointments for non-urgent needs after you have configured your [employer] account. If you do not currently have access, please contact one of our staff members or call [phone]. For after hour emergencies, please call and press 0 for the shrimp peeling machine operator in order to page the orthopedic resident contractor general engineering. This list of medications is preliminary and [...] TABLET BY MOUTH DAILY saline nasal spray ([place]; [employer]) 0.65 % nasal spray [place] 1 (one) spray into each nostril as [...] Tammi Perez MD, 06/08/2022 at 3:12 PM DUE ACCOUNTS CLERK Associated attestation - Ama Gonzalez MD - 06/08/2022 7:17 PM PAST DUE ACCOUNTS CLERK I have verified the documentation and discharge [...] Tammi Perez MD - 06/07/2022 11:07 AM PAST DUE ACCOUNTS CLERK A Note From Your Doctors: Dear Kandace [...] 0.65 % nasal spray Commonly known as: [place]; [employer] [place] 1 (one) spray into each nostril as [...] sure to ask the pharmacy when you pick and shovel worker your prescription. You may also call your primary provider to ask if you should be taking your medication. FOLLOW-UP: It is important that you follow-up with all appointments that have been made on your behalf. These appointments include: Future Appointments Monday June 20, 2022 8:45 AM Appointment with Deon Taylor at [facility] 1L ([phone]) [address] [place] [phone] If a follow-up with your primary care provider has not been scheduled, please schedule an appointment to follow-up on your hospitalization. If there is a conflict, please call the clinic ahead of time and reschedule the appointment. Regards, Internal Medicine Department [facility] [address] [place] [address] Orthopedic Spine Surgery Patient Discharge Instructions [...] incision covered until your follow up appointment. --Sutures/[place]: to be removed at your next clinic [...] an appointment. For medical emergencies, please call [phone]. Follow up Contact Information: [facility] Orthopedic Surgery office contact information: [facility] Medicine ([facility]) [address] [place] [address], 1st [place] [address] [facility] [address] [facility], [address] [place] [address] Visit our website at [email or web address] for information about our practice and an interactive health encyclopedia. Please visit [email or web address] to access your health record, ask questions, request medication refills, and request appointments for non-urgent needs after you have configured your [employer] account. If you do not currently have access, please contact one of our staff members or call [phone]. For after hour emergencies, please call and press 0 for the shrimp peeling machine operator in order to page the orthopedic resident contractor general engineering. DUE ACCOUNTS CLERK documented in this encounter Medications at Time [...] mouth every evening 06/08/2022 saline nasal spray ([place]; [employer]) 0.65 % nasal spray [place] 1 (one) spray into each nostril as [...] to allow for safe mobility Outcome: Progressing DUE ACCOUNTS CLERK * Makenzie Choi RN - 06/08/2022 3:57 [...] 1420 by Makenzie Choi RN Outcome: Progressing DUE ACCOUNTS CLERK * Charissa Murphy - 06/08/2022 2:52 PM CST Facility Transfer Note Level of Care: Actual level of care at discharge: Acute Rehab Facility Facility Name: (include name of person confirming admission): Actual discharge provider: [facility] [place] Made Aware of Special Needs (if applicable): n/a RN Call Report to:[phone] Fax D/C Orders to:[phone] MD to MD: Dr Baldwin [phone] Transportation (company and number): [facility]: [phone] Certificate of Medical Necessity rationale: weakness, impaired mobility, unsteady gait, spinal precautions Date/time of transfer: 06-08-22 @ Accepting MD and contact #: Denny Completed and Signed [id number] (if applicable): n/a Family/Other Notified of Transfer (name/phone): patient Authorization Skilled Care: Authorization for Transportation: Verified Qualifying Stay(Skilled Only): NOT APPLICABLE Comments: Name/Phone number: Charissa Murphy [phone] DUE ACCOUNTS CLERK * Joanna Easley PT - 06/08/2022 2:24 PM CST [facility] Physical Medicine and Rehabilitation Physical Therapy Progress Note Patient: Kandace Cole [facility] Record Number: [id number] Date of : 1950 Age: [age] year [...] as Tolerated Spine Precautions: Yes Spine Precautions: Hankins OBJECTIVE: At start of therapy session, patient [...] ambulate??75??feet with minimal assist??and appropriate AD ?? Fine Arts Chair Goal(s): Patient to discharge to appropriate next [...] light within reach, with Makenzie HANCOCK aware. DUE ACCOUNTS CLERK * Makenzie Choi RN - 06/08/2022 2:20 [...] to allow for safe mobility Outcome: Progressing DUE ACCOUNTS CLERK * Annemarie Collazo COTA - 06/08/2022 2:04 PM CST [facility] Physical Medicine and Rehabilitation Occupational Therapy Progress Note Patient: Kandace Cole [facility] Record Number: [id number] Date of : 1950 Age: [age] year [...] perform bed to chair??with stand by assist Alf Goal(s): Patient to discharge to appropriate next [...] with therapy cues visible on white board. DUE ACCOUNTS CLERK * Cammy Aleman RN - 06/08/2022 12:51 [...] Brother Secondary Emergency Contact: Barbara Cisneros Address: [place], [place] Relation: Other Transportation at Discharge: Family Follow Up Appointment:Dr. Karrei Phillips Transportation to MD:Family Equipment at Home: [...] get more.: Never true Medication affordability concerns: [place]: Cammy Aleman RN Case manager of pmo: [phone] 06/08/2022 DUE ACCOUNTS CLERK * Tammi Perez MD - 06/08/2022 10:20 AM CST Internal Medicine Progress Note Patient: Kandace Cole (:1950) Room: [facility] Date of admission: 06/04/2022 No [...] results for input(s): MG in the last 78395 hours. Phosphorus: Recent Labs Component Name 06/08/2221206/07/2222306/06/22306 PHOS 2.5* 2.7* 3.2 Coagulation: No results for input(s): PT, INR, PTT in the last 43121 hours. Micro Microbiology Results (Displays last 21 [...] ? Tammi Perez MD PGY-3 Internal Medicine DUE ACCOUNTS CLERK Associated attestation - Ama Gonzalez MD - 06/08/2022 10:42 PM PAST DUE ACCOUNTS CLERK I have verified the documentation of the [...] Easley PT - 06/08/2022 10:15 AM CST [facility] Department of Physical Medicine & Rehabilitation Progress Note Patient: Kandace Cole Med Record Number: [id number] Date of : 1950 Age: [age] year old 06/08/22 1015 Missed Visit Missed Visit Other (Comment) (Patient just back to bed. Requested therapy at later time.) DUE ACCOUNTS CLERK * Charissa Murphy - 06/08/2022 9:55 AM CST Saturday Summary Note Discharge Level of Care: Rehab Discharge Destination:[facility] Phone Number: (Tracey peña) Fax Number: Insurance Auth:auth will need to be done as patient has [facility] Anticipated Mode of Transportation: to be determined (EMS) or person vehicle Contacts (Name, relationship, phone #): Anticipated DC Date: patient is ready for disposition Pending Needs: review from rehab for acceptance and authorization will need to be done. Comments: Liaison is aware of this referral and will review. SW was called by [employer] [phone] saying to call them as two rehab's have put in request ([facility] and [facility]) DASHAWN informed that [facility] has been the chosen provider and never spoke to anyone at [facility]. Sample Taker Operator with [employer] informed DASHAWN that it's currently under review. DASHAWN provided contact information for marketing representative to call back once decision has been made. Charissa Murphy Phone [phone] 06/08/2022 DUE ACCOUNTS CLERK * Heather Sethi - 06/08/2022 8:52 AM CST Internal Medicine Progress Note Patient: Kandace Cole (:1950) Room: [facility]/ Date of admission: 06/04/2022 No of days [...] results for input(s): MG in the last 52114 hours. Phosphorus: Recent Labs Component Name 06/08/2221206/07/2222306/06/22 030 PHOS 2.5* 2.7* 3.2 Coagulation: No results for input(s): PT, INR, PTT in the last 14989 hours. Micro Microbiology Results (Displays last 21 [...] is HDS. Heather Sethi MS3 Internal Medicine DUE ACCOUNTS CLERK Associated attestation - Ama Gonzalez MD - 06/08/2022 7:11 PM PAST DUE ACCOUNTS CLERK I have verified the documentation of the medical student. This note is for educational purposes only. Please refer to the resident's note for complete note for details and my assessment. Ama Gonzalez MD 06/08/2022 * Joey Dickens MD - 06/08/2022 5:50 AM CST [facility] Orthopedic Spine Surgery Daily Progress Note Kandace Cole, 72 year old, female : 1950 CSN: [id number] Primary Care Physician: Karrie Phillips MD, MD [...] for input(s): PT, INR in the last 73846 hours. No results for input(s): PTT in the last 64201 hours. Cultures No results found for this or any previous visit (from the past 248 hour(s)). Physical Exam General: Awake, alert, follows commands, in no acute distress Neck: - C-collar/Cantil J: Present - Tenderness to palpation: Deferred [...] concerns Joey Dickens MD 06/08/2022 5:50 AM DUE ACCOUNTS CLERK * Vivian Boo RN - 06/07/2022 10:43 [...] at normal rate and depth. Outcome: Progressing DUE ACCOUNTS CLERK * mAa Gonzalez MD - 06/07/2022 10:38 PM CST [...] Tammi Perez MD ??? saline nasal spray ([place]; [employer]) 0.65 % nasal spray 2 spray 2 [...] input(s): PT, INR, APTT in the last 57263 hours. Recent Labs Component Name 06/07/22 0224 [...] and Palliative Medicine Attending 06/07/2022 10:39 PM DUE ACCOUNTS CLERK * Makenzie Choi RN - 06/07/2022 6:28 [...] to allow for safe mobility Outcome: Progressing DUE ACCOUNTS CLERK * Daniella Le, PT - 06/07/2022 2:30 PM CST [facility] Physical Medicine and Rehabilitation Physical Therapy Progress Note Patient: Kandace Cole [facility] Record Number: [id number] Date of : 1950 Age: [age] year [...] (in C-collar) Spine Precautions: Yes Spine Precautions: [place] OBJECTIVE: At start of therapy session, patient [...] feet with minimal assist and appropriate AD Fine Arts Chair Goal(s): Patient to discharge to appropriate next [...] on , with call light within reach. DUE ACCOUNTS CLERK * Sherrie Boyer, OT - 06/07/2022 1:48 PM CST [facility] Physical Medicine and Rehabilitation Occupational Therapy Progress Note Patient: Kandace Cole Med Record Number: [id number] Date of : 1950 Age: [age] year [...] to chair with stand by assist ?? Fine Arts Chair Goal(s): Patient to discharge to appropriate next [...] call light within reach, with RNMigdalia aware. DUE ACCOUNTS CLERK * Charissa Murphy - 06/07/2022 10:43 AM CST DASHAWN rec'd call from [facility]) to say Cadence will be here to assess patient. If patient isin agreement to going, auth will be initiated. SW to wait for liaison to come and patient to make determination on rehab choice. ISELA Hensley Care Coordination Retread Technician DUE ACCOUNTS CLERK * Heather Sethi - 06/07/2022 10:12 AM CST Internal Medicine Progress Note Patient: Kandace Cole (:1950) Room: [facility] Date of admission: 06/04/2022 No [...] results for input(s): MG in the last 13492 hours. Phosphorus: Recent Labs Component Name 06/07/22 0224 06/06/22 0307 02/16/22 0757 PHOS 2.7* 3.2 3.9 Coagulation: No results for input(s): PT, INR, PTT in the last 13698 hours. Micro Microbiology Results (Displays last 21 [...] is HDS. Heather Sethi MS3 Internal Medicine DUE ACCOUNTS CLERK Associated attestation - Ama Gonzalez MD - 06/07/2022 10:37 PM PAST DUE ACCOUNTS CLERK I have verified the documentation of the medical student. This note is for educational purposes only. Please refer to the resident's note for complete note for details and my assessment. Ama Gonzalez MD 06/07/2022 * Joey Dickens MD - 06/07/2022 5:31 AM CST [facility] Orthopedic Spine Surgery Daily Progress Note Kandace Cole, 72 year old, female : 1950 [facility]: [id number] Primary Care Physician: Karrie Phillips MD, MD [...] for input(s): PT, INR in the last 24859 hours. No results for input(s): PTT in the last 53814 hours. Cultures No results found for this or any previous visit (from the past 248 hour(s)). Physical Exam General: Awake, alert, follows commands, in no acute distress Neck: - C-collar/Cantil J: Present - Tenderness to palpation: Deferred [...] concerns Joey Dickens MD 06/07/2022 5:31 AM DUE ACCOUNTS CLERK Associated attestation - Deon Taylor MD - 06/07/2022 4:44 PM PAST DUE ACCOUNTS CLERK I have seen and evaluated the patient [...] found in the flowsheet documentation) Outcome: Progressing DUE ACCOUNTS CLERK * Annemarie Collazo COTA - 06/06/2022 3:59 PM CST [facility] Department of Physical Medicine & Rehabilitation Progress Note Patient: Kandace Cole [facility] Record Number: [id number] Date of : 1950 Age: [age] year old 06/06/22 1017 Missed Visit Missed Visit RN Cancel (Pt receiveing blood) DUE ACCOUNTS CLERK * Heather Sethi - 06/06/2022 1:56 PM CST Internal Medicine Progress Note Patient: Kandace Cole (:1950) Room: [facility] Date of admission: 06/04/2022 No [...] results for input(s): MG in the last 69968 hours. Phosphorus: Recent Labs Component Name 06/06/2230602/16/227 PHOS 3.2 3.9 Coagulation: No results for input(s): PT, INR, PTT in the last 92935 hours. Micro Microbiology Results (Displays last 21 [...] is HDS. Heather Sethi MS3 Internal Medicine DUE ACCOUNTS CLERK Associated attestation - Ama Gonzalez MD - 06/06/2022 8:42 PM PAST DUE ACCOUNTS CLERK I have verified the documentation of the medical student. This note is for educational purposes only. Please refer to the resident's note for complete note for details and my assessment. Ama Gonzalez MD 06/06/2022 * Joanna Easley, PT - 06/06/2022 10:00 AM CST [facility] Department of Physical Medicine & Rehabilitation Progress Note Patient: Kandace Cole Med Record Number: [id number] Date of : 1950 Age: [age] year old 06/06/22 1000 Missed Visit Missed Visit RN Cancel (Patient receiving blood) DUE ACCOUNTS CLERK * Tammi Perez MD - 06/06/2022 9:01 AM CST Internal Medicine Progress Note Patient: Kandace Cole (:1950) Room: [facility] Date of admission: 06/04/2022 No [...] results for input(s): MG in the last 93275 hours. Phosphorus: Recent Labs Component Name 06/06/2230602/16/22756 PHOS 3.2 3.9 Coagulation: No results for input(s): PT, INR, PTT in the last 28850 hours. Micro Microbiology Results (Displays last 21 [...] ? Tammi Perez MD PGY-3 Internal Medicine DUE ACCOUNTS CLERK Associated attestation - Ama Gonzalez MD - 06/06/2022 9:13 PM PAST DUE ACCOUNTS CLERK I have verified the documentation of the [...] falls and polypharmacy, who was admitted to [facility] 06/04 for a planned cervical-thoracic [...] 72 year old, female : 1950 CSN: [id number] Primary Care Physician: Karrie Phillips MD, MD [...] for input(s): PT, INR in the last 25259 hours. No results for input(s): PTT in the last 89005 hours. Cultures No results found for this or any previous visit (from the past 248 hour(s)). Physical Exam General: Awake, alert, follows commands, in no acute distress Neck: - C-collar/Cantil J: Present - Tenderness to palpation: Deferred [...] concerns Joey Dickens MD 06/06/2022 8:08 AM DUE ACCOUNTS CLERK Associated attestation - Deon Taylor MD - 06/06/2022 12:41 PM PAST DUE ACCOUNTS CLERK I have seen and evaluated the patient [...] to allow for safe mobility Outcome: Progressing DUE ACCOUNTS CLERK * Slim Camacho RN - 06/05/2022 11:00 [...] to allow for safe mobility Outcome: Progressing DUE ACCOUNTS CLERK * Tammi Perez MD - 06/05/2022 4:34 PM CST Internal Medicine Progress Note Patient: Kandace Cole (:1950) Room: [facility]/ Date of admission: 06/04/2022 No of days [...] results for input(s): MG in the last 45990 hours. Phosphorus: Recent Labs Component Name 02/16/22 0757 PHOS 3.9 Coagulation: No results for input(s): PT, INR, PTT in the last 14907 hours. Micro Microbiology Results (Displays last 21 [...] are recommending rehab- acceptance pending. ? Tammi Perze MD PGY-3 Internal Medicine DUE ACCOUNTS CLERK Associated attestation - Ama Gonzalez MD - 06/05/2022 8:56 PM PAST DUE ACCOUNTS CLERK I have verified the documentation of the [...] falls and polypharmacy, who was admitted to [facility] 06/04 for a planned cervical-thoracic [...] patient's preference is to stay within the [facility] Network and its affiliates.: Unsure Comments: Lives with: Other (Comment) (Grandson) Physical Limitations: None Independent with the use of a ww Requires Assistance With: None Preferred Pharmacy: [facility] - [address] [facility] [address] [address] [facility] [id number] Advance Directive: No Advance Directive Information Given: Not Applicable Would you like assistance on completing and executing or revising an Advance Directive?: No Payer/Plan Subscriber Name Rel Member # Group # [facility] MANAGED MEDICARE * KANDACE COLE [id number] [address] [id number] 16 at 4:08 PM 06/05/2022. Met with patient Family Support (name and phone): Extended Emergency Contact Information Primary Emergency Contact: BARBARA CISNEROS Mobile Relation: Brother Secondary Emergency Contact: Barbara Cisneros Address: [place], [place] Relation: Other Patient or marketing representative requests care coordination reach out to family or caregiver listed above regarding discharge planning and at time of discharge? Yes grandson Patient/Family provided with list of resources? Unknown Preferred Provider / High Quality Network List given?: Unknown Reason for provider choice: Unknown Equipment at Home: Chair-Shower;Grab Bars;Cane-Small Base Quad;Walker-2 Wheeled;Walker-4 Wheeled with Seat List DME pt. requires but does not have.: None Retread Technician Referral: Yes -Placement Will continue to follow. For any questions or needs please contact: Leasing Agent Name/Phone number: Cammy Aleman RN Case manager of pmo: [phone] 06/05/2022 DUE ACCOUNTS CLERK * Heather Sethi - 06/05/2022 2:44 PM CST Internal Medicine Progress Note Patient: Kandace Cole (:1950) Room: [facility] Date of admission: 06/04/2022 No [...] results for input(s): MG in the last 99951 hours. Phosphorus: Recent Labs Component Name 02/16/22 0757 PHOS 3.9 Coagulation: No results for input(s): PT, INR, PTT in the last 52292 hours. Micro Microbiology Results (Displays last 21 [...] is HDS. Heather Sethi MS3 Internal Medicine DUE ACCOUNTS CLERK Associated attestation - Ama Gonzalez MD - 06/05/2022 11:04 PM PAST DUE ACCOUNTS CLERK I have verified the documentation of the [...] Achieves restful, refreshing sleep pattern. Outcome: Progressing DUE ACCOUNTS CLERK * Sandra Brown, PT - 06/05/2022 10:27 AM CST [facility] Physical Medicine and Rehabilitation Physical Therapy Initial Evaluation Note Patient: Kandace Cole [facility] Record Number: [id number] Date of : 1950 Age: [age] year [...] Migraine Ulnar neuropathy Type 2 diabetes mellitus ([facility]/H[facility]) Type 2 diabetes mellitus with stage 3 chronic kidney disease, without long-term current use of insulin ([facility]) Temporomandibular joint disorder Systemic sclerosis ([facility]/H[facility]) Sprain of ankle Sciatica Recurrent major depression in remission ([facility]) Raynaud's disease Primary fibromyalgia syndrome Polyp of colon Perineal pain Paronychia of toe of right foot Onychomycosis of toenail Nonexudative 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 Nausea Multiple bruises Mixed hyperlipidemia Mixed collagen vascular disease ([facility]/HCC) Past Medical History: Diagnosis Date ??? Anemia ??? Ferrell's esophagus ??? CKD (chronic kidney disease), stage III ([facility]) ??? Diabetes ??? Disease of [...] feet with minimal assist and appropriate AD Fine Arts Chair Goal(s): Patient to discharge to appropriate next [...] reach, with RNMigdalia, aware. All lines intact. DUE ACCOUNTS CLERK * Olimpia Adames OT - 06/05/2022 10:22 AM CST [facility] Occupational Therapy Initial Evaluation Note Patient: Kandace Cole Med Record Number: [id number] Date of : 1950 Age: [age] year [...] closed fractures of facial bone, initial encounter ([facility]) Abdominal pain Abnormal serum creatinine level Anemia Ferrell's esophagus Cardiomegaly Chronic kidney disease Chronic obstructive pulmonary disease ([facility]) Chronic depression Dyspnea on exertion Benign essential hypertension Glaucoma Hyperkalemia Hyposmolality Hyperthyroidism Hypothyroidism Intractable chronic migraine without aura Iron deficiency anemia Leukocytosis Macular degeneration Migraine Ulnar neuropathy Type 2 diabetes mellitus ([facility]) Type 2 diabetes mellitus with stage 3 chronic kidney disease, without long-term current use of insulin ([facility]) Temporomandibular joint disorder Systemic sclerosis ([facility]) Sprain of ankle Sciatica Recurrent major depression in remission ([facility]) Raynaud's disease Primary fibromyalgia syndrome Polyp of colon Perineal pain Paronychia of toe of right foot Onychomycosis of toenail Nonexudative 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 Nausea Multiple bruises Mixed hyperlipidemia Mixed collagen vascular disease ([facility]) Past Medical History: Diagnosis Date ??? Anemia ??? Ferrell's esophagus ??? CKD (chronic kidney disease), stage III ([facility]) ??? Diabetes ??? Disease of [...] ACTIVITY TOLERANCE: Patient's activity tolerance: fair. Modified [place]: TREATMENT / EDUCATION / INTERVENTIONS: While performing [...] bed to chair with stand by assist Alf Goal(s): Patient to discharge to appropriate next [...] light within reach, with RN, Migdalia aware. DUE ACCOUNTS CLERK * Joey Dickens MD - 06/05/2022 6:53 AM CST [facility] Orthopedic Spine Surgery Daily Progress Note Kandace Cole, 72 year old, female : 1950 CSN: [id number] Primary Care Physician: Karrie Phillips MD, MD [...] for input(s): PT, INR in the last 99430 hours. No results for input(s): PTT in the last 96635 hours. Cultures No results found for this or any previous visit (from the past 248 hour(s)). Physical Exam General: Awake, alert, follows commands, in no acute distress Neck: - C-collar/Cantil J: Present - Tenderness to palpation: Deferred [...] concerns Joey Dickens MD 06/05/2022 6:53 AM DUE ACCOUNTS CLERK Associated attestation - Deon Taylor MD - 06/05/2022 4:23 PM PAST DUE ACCOUNTS CLERK I have seen and evaluated the patient [...] Achieves restful, refreshing sleep pattern. Outcome: Progressing DUE ACCOUNTS CLERK * Yaritza Lynch RN - 06/04/2022 2:46 [...] Achieves restful, refreshing sleep pattern. Outcome: Progressing DUE ACCOUNTS CLERK * Padma Morales MD - 06/04/2022 11:51 [...] Activity: as tolerated from ortho perspective in [place] collar 2. PT/OT 3. Pain Control- oral medications 4. DVT Prophylaxis: ambulation, SCDs 5. Drains? HV x1 6. Continue perioperative ancef 7. Admit to floor under Ortho Spine 8. Please page Ortho Spine with any additional questions or concerns Padma Morales MD 06/04/2022 4:23 PM DUE ACCOUNTS CLERK documented in this encounter H&P Notes * Padma Morales MD - 06/04/2022 5:28 AM CST Orthopedic Spine Surgery H&P Note Kandace Cole, 72 year old, female : 1950 CSN: [id number] Diagnosis/Procedures 1.) Cervical myelopathy Today's Date: 06/04/2022 [...] concerns Padma Morales MD 06/04/2022 5:28 AM DUE ACCOUNTS CLERK Associated attestation - Deon Taylor MD - 06/04/2022 7:15 AM PAST DUE ACCOUNTS CLERK I have seen and evaluated the patient and agree with the resident's assessment and plan as stated above. I have independently reviewed all imaging studies. Deon Taylor MD documented in this encounter Consult Notes * Charissa Murphy - 06/06/2022 4:02 PM CSTAssociated Order(s): IP CONSULT TO DIETARY AIDE COOK SW newly assigned and following for placement and disposition. SW acknowledge referral for placement in facility. SW was informed that patient will need rehab. SW made referrals. 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 Weight hx limited; RD noted [...] Pain affecting intake: No Estimated Needs: KCAL: 7579-9065 (25-30 kcal/kg ABW) Protein (g): 90 (1.5 [...] Goal Progress: New goal established Ascom: 4533 DUE ACCOUNTS CLERK * Adolph Juarez, BRADLEY-FURNACE REPAIRER - 06/04/2022 2:17 PM CSTAssociated Order(s): IP [...] Lives at home with grandson in [facility]. Does not smoke or drink. [...] 200 MG tablet ??? saline nasal spray ([place]; [employer]) 0.65 % nasal spray RCS: Memory very [...] mouth once daily ??? saline nasal spray ([place]; [employer]) 0.65 % nasal spray [place] 1 (one) spray into each nostril as [...] Housing Stability: Not on file Family History: [place] Review of Systems: General: denies recent illness [...] input(s): PT, INR, APTT in the last 80677 hours. Cardiac markers: Recent Labs Component Name [...] Juarez, ANP-, Geriatrics 06/04/2022 2:17 PM Pager: [phone] DUE ACCOUNTS CLERK Associated attestation - Dorothy Stahl MD - 06/04/2022 10:04 PM PAST DUE ACCOUNTS CLERK I have verified the documentation of the INTERNAL CONTROL CONSULTANT including all history, exam, and medical decision-making [...] Lives at home with grandson in [facility]. Does not smoke or drink. [...] (SEROquel) 200 MG tablet saline nasal spray ([place]; [employer]) 0.65 % nasal spray RCS: Memory very [...] by mouth once daily saline nasal spray ([place]; [employer]) 0.65 % nasal spray [place] 1 (one) spray into each nostril as [...] input(s): PT, INR, APTT in the last 84194 hours. Cardiac markers: Recent Labs Component Name [...] senna). -Falls/Aspiration precautions. -Rest of plan per INTERNAL CONTROL CONSULTANT note. Thank you for this consult. We will continue to follow along with you. Please call with questions. Keely Stahl MD Geriatric attending Pager: [phone] documented in this encounter OR Notes * Brief Op Note - Padma Morales MD - 06/04/2022 8:42 AM CST Brief Op Note Procedure: C5-C6 laminectomy, C4-T2 posterior instrumented spinal fusion Patient Name: Kandace Cole Date of Service: 06/04/2022 Pre-Op Diagnosis: cervical myelopathy Post-Op Diagnosis: Same as above Surgeon(s) and Role: * Deon Taylor MD - Primary Transit Operations Supervisor(s): Padma Morales MD - Resident - Assisting [...] Implant Name Type Inv. Item Serial No. Pediatric Dental Assistant Lot No. LRB No. Used Action Jean Bone Void 10Ml Dbm Grftn Algrf Ptty Jean Bone Void 10Ml Dbm Grftn Algrf Ptty [employer] [id number] N/A 1 Implanted Jean Bone Void 10Ml Dbm Grftn Algrf Ptty Jean Bone Void 10Ml Dbm Grftn Algrf Ptty [employer] [id number] N/A 1 Implanted Graft Bone Canc 4-9.5Mm 15Cc Frzdr Chp Graft Bone Canc 4-9.5Mm 15Cc Frzdr Chp [employer] [id number]/A 1 Implanted Graft Bone Canc 4-9.5Mm 30Cc Algrf Frzdr Graft Bone Canc 4-9.5Mm 30Cc Algrf Frzdr [employer] [id number] N/A 1 Implanted 3.5 x 14mm screw Synthes Spine N/A 4 Implanted 4.0x 20mm screw Synthes Spine N/A 2 Implanted 5.0 x 24mm screw Synthes Spine N/A 2 Implanted 4.5 x 26mm screw Synthes Spine N/A 2 Implanted screw caps Synthes Spine N/A 10 Implanted 90mm rods Melodeo Spine N/A 2 Implanted Padma Morales MD DUE ACCOUNTS CLERK * Operative - Deon Taylor MD - 06/04/2022 8:42 AM CST Kandace Cole 1950 Date of Surgery 06/04/22 PREOPERATIVE DIAGNOSIS: cervical myelopathy POSTOPERATIVE DIAGNOSIS: same PROCEDURES: 1. Cervical Laminectomy C5/6 with partial medial facetectomies (78245) 2. Posterior Arthrodesis C4-T2 (18898, 59539z0) 3. Posterior instrumentation C4-T2 (94205) 4. Application of local autograft and allograft (, 86048) 5. Application and removal of cranial tongs () SURGEON: Deon Taylor MD LEVEL VIAL INSPECTOR AND TESTER: Varun Matute MD ANESTHESIA: General. COMPLICATIONS: None. [...] for further surgery, blood clots, PE, stroke, MS,paralysis, . After we reviewed of the risks [...] the appropriate lines and leads were placed Naik-inDinero tongs were positioned over the center rotation [...] C6 and gently pulled posteriorly while a Gray and [place] 2 were used to divide [...] SSEPs remained stable throughout. Deon Taylor MD DUE ACCOUNTS CLERK documented in this encounter Plan of Treatment Upcoming Encounters Date Type Department Care Team (Late st Contact Info) Description 06/02/2024 1:45 PM PAST DUE ACCOUNTS CLERK Office Visit [facility] - Orthopedics [address] [facility] [facility] [place] [phone] Deon Taylor MD [facility] [place] [address] documented as of this encounter Procedures Procedure Name Priority Date/Time Associated Diagnosis Comments XR THORACIC SPINE 2VW Routine 07/18/2022 11:04 AM CDT Degeneration of cervical intervertebral disc GLUCOSE - POINT OF CARE Routine 06/08/2022 7:47 AM PAST DUE ACCOUNTS CLERK CBC W/O DIFFERENTIAL Routine 06/08/2022 2:13 AM PAST DUE ACCOUNTS CLERK Degeneration of cervical intervertebral disc BASIC METABOLIC PANEL (CALCIUM TOTAL) Routine 06/08/2022 2:13 AM PAST DUE ACCOUNTS CLERK Degeneration of cervical intervertebral disc PHOSPHORUS BLOOD Routine 06/08/2022 2:13 AM PAST DUE ACCOUNTS CLERK MAGNESIUM BLOOD Routine 06/08/2022 2:13 AM PAST DUE ACCOUNTS CLERK GLUCOSE - POINT OF CARE Routine 06/07/2022 11:25 PM PAST DUE ACCOUNTS CLERK GLUCOSE - POINT OF CARE Routine 06/07/2022 9:31 PM PAST DUE ACCOUNTS CLERK GLUCOSE - POINT OF CARE Routine 06/07/2022 5:52 PM PAST DUE ACCOUNTS CLERK GLUCOSE - POINT OF CARE Routine 06/07/2022 12:00 PM PAST DUE ACCOUNTS CLERK GLUCOSE - POINT OF CARE Routine 06/07/2022 8:21 AM PAST DUE ACCOUNTS CLERK CBC W/O DIFFERENTIAL Routine 06/07/2022 2:24 AM PAST DUE ACCOUNTS CLERK Degeneration of cervical intervertebral disc BASIC METABOLIC PANEL (CALCIUM TOTAL) Routine 06/07/2022 2:24 AM PAST DUE ACCOUNTS CLERK Degeneration of cervical intervertebral disc PHOSPHORUS BLOOD Routine 06/07/2022 2:24 AM PAST DUE ACCOUNTS CLERK MAGNESIUM BLOOD Routine 06/07/2022 2:24 AM PAST DUE ACCOUNTS CLERK GLUCOSE - POINT OF CARE Routine 06/06/2022 8:38 PM PAST DUE ACCOUNTS CLERK GLUCOSE - POINT OF CARE Routine 06/06/2022 5:02 PM PAST DUE ACCOUNTS CLERK GLUCOSE - POINT OF CARE Routine 06/06/2022 12:26 PM PAST DUE ACCOUNTS CLERK TRANSFUSE RED BLOOD CELL LEUKOREDUCED UNIT(S) Routine 06/06/2022 9:42 AM PAST DUE ACCOUNTS CLERK PREPARE RBC LEUKOREDUCED UNIT Routine 06/06/2022 9:36 AM PAST DUE ACCOUNTS CLERK GLUCOSE - POINT OF CARE Routine 06/06/2022 8:00 AM PAST DUE ACCOUNTS CLERK PTH INTACT W/O CALCIUM AM Draw 06/06/2022 3:07 AM PAST DUE ACCOUNTS CLERK HEMOGLOBIN A1C Routine 06/06/2022 3:07 AM PAST DUE ACCOUNTS CLERK VITAMIN D 25-HYDROXY AM Draw 06/06/2022 3:07 AM PAST DUE ACCOUNTS CLERK CBC W/O DIFFERENTIAL Routine 06/06/2022 3:07 AM PAST DUE ACCOUNTS CLERK Degeneration of cervical intervertebral disc BASIC METABOLIC PANEL (CALCIUM TOTAL) Routine 06/06/2022 3:07 AM PAST DUE ACCOUNTS CLERK Degeneration of cervical intervertebral disc PHOSPHORUS BLOOD Routine 06/06/2022 3:07 AM PAST DUE ACCOUNTS CLERK MAGNESIUM BLOOD Routine 06/06/2022 3:07 AM PAST DUE ACCOUNTS CLERK FOLATE Routine 06/06/2022 3:07 AM PAST DUE ACCOUNTS CLERK VITAMIN B12 AM Draw 06/06/2022 3:07 AM PAST DUE ACCOUNTS CLERK IRON + TRANSFERRIN PANEL Routine 06/06/2022 3:07 AM PAST DUE ACCOUNTS CLERK FERRITIN Routine 06/06/2022 3:07 AM PAST DUE ACCOUNTS CLERK GLUCOSE - POINT OF CARE Routine 06/05/2022 8:51 PM PAST DUE ACCOUNTS CLERK GLUCOSE - POINT OF CARE Routine 06/05/2022 5:59 PM PAST DUE ACCOUNTS CLERK GLUCOSE - POINT OF CARE Routine 06/05/2022 4:27 PM PAST DUE ACCOUNTS CLERK GLUCOSE - POINT OF CARE Routine 06/05/2022 12:37 PM PAST DUE ACCOUNTS CLERK CBC W/O DIFFERENTIAL Timed 06/05/2022 12:32 PM PAST DUE ACCOUNTS CLERK XR CERVICAL SPINE 2 OR 3VW Routine 06/05/2022 9:35 AM PAST DUE ACCOUNTS CLERK Degeneration of cervical intervertebral disc GLUCOSE - POINT OF CARE Routine 06/05/2022 8:39 AM PAST DUE ACCOUNTS CLERK CBC W/O DIFFERENTIAL Routine 06/05/2022 4:58 AM PAST DUE ACCOUNTS CLERK Degeneration of cervical intervertebral disc BASIC METABOLIC PANEL (CALCIUM TOTAL) Routine 06/05/2022 4:58 AM PAST DUE ACCOUNTS CLERK Degeneration of cervical intervertebral disc GLUCOSE - POINT OF CARE Routine 06/04/2022 8:20 PM PAST DUE ACCOUNTS CLERK GLUCOSE - POINT OF CARE Routine 06/04/2022 11:51 AM PAST DUE ACCOUNTS CLERK FL JOSÉ LUIS SURGERY STAT 06/04/2022 11:30 AM PAST DUE ACCOUNTS CLERK Degeneration of cervical intervertebral disc FUSION POSTERIOR CERVICAL (PCF) 06/04/2022 8:42 AM PAST DUE ACCOUNTS CLERK Cervical myelopathy (HCC) Case Notes LATEX ALLERGY Special Needs PRONE, C-ARM CERVICAL ATTACHMENT JULIETH DONALD NEURO MONITORING POWER:4mm jose, 4mm cutter, 2mm cutter DEPUY: DELILAH MCGINNIS [phone]; EMERSON [place] [phone]--reps notified mk 06/01 GLUCOSE - POINT OF CARE Routine 06/04/2022 6:39 AM PAST DUE ACCOUNTS CLERK TYPE + SCREEN PANEL MARLEE 06/04/2022 6:39 AM PAST DUE ACCOUNTS CLERK Preop examination documented in this encounter Results [...] MD on 07/18/2022 11:31 AM Lyla Blackwell APRN-FURNACE REPAIRER DIAGNOSTIC IMAG ING ORDERABLES * GLUCOSE - POINT OF CARE (06/08/2022 7:47 AM PAST DUE ACCOUNTS CLERK) Glucose WB/POC 95 70 - 115 mg/dL 06/08/2022 7:48 AM PAST DUE ACCOUNTS CLERK [facility] Specimen Type Arterial 06/08/2022 7:48 AM PAST DUE ACCOUNTS CLERK [facility] Blood BLOOD SPECIMEN / Unknown 06/08/2022 7:47 AM PAST DUE ACCOUNTS CLERK 06/08/2022 7:48 AM PAST DUE ACCOUNTS CLERK Ama Gonzalez MD LAB - POINT OF C ARE ORDERABLES [address] [address], [facility] [phone] * (ABNORMAL) PHOSPHORUS BLOOD (06/08/2022 2:13 AM PAST DUE ACCOUNTS CLERK) Phosphorus 2.5(L) 2.9 - 5.1 mg/dL 06/08/2022 3:12 AM PAST DUE ACCOUNTS CLERK [facility] Blood BLOOD SPECIMEN / Unknown Lab Venipuncture / Unknown 06/08/2022 2:13 AM PAST DUE ACCOUNTS CLERK 06/08/2022 2:44 AM PAST DUE ACCOUNTS CLERK Ama Gonzalez MD LAB - CHEMISTRY ORDERABLES [address] [address], [facility] [phone] * MAGNESIUM BLOOD (06/08/2022 2:13 AM PAST DUE ACCOUNTS CLERK) Pathologist [facility] Magnesium 1.7 1.6 - 2.6 mg/dL 06/08/2022 3:12 AM [facility] Blood BLOOD SPECIMEN / Unknown Lab Venipuncture / Unknown 06/08/2022 2:13 AM PAST DUE ACCOUNTS CLERK 06/08/2022 2:44 AM PAST DUE ACCOUNTS CLERK Ama Gonzalez MD LAB - CHEMISTRY ORDERABLES Performing Organization Address City/[facility]/ZIP Co de Phone Number [address] [address], [facility] [phone] * (ABNORMAL) CBC W/O DIFFERENTIAL (06/08/2022 2:13 AM PAST DUE ACCOUNTS CLERK) WBC 9.2 3.5 - 10.5 10? 3 /uL 06/08/2022 2:54 AM [facility] RBC 2.64(L) 3.80 - 5.20 10? 6 /uL 06/08/2022 2:54 AM [facility] Hemoglobin 7.9(L) 12.0 - 15.6 g/dL 06/08/2022 2:54 AM [facility] Hematocrit 23.9(L) 35.0 - 45.0 % 06/08/2022 2:54 AM [facility] MCV 90.5 80.7 - 98.3 fL 06/08/2022 2:54 AM [facility] MCH 29.9 26.7 - 34.0 pg 06/08/2022 2:54 AM [facility] MCHC 33.1 30.8 - 35.9 g/dL 06/08/2022 2:54 AM [facility] RDW-SD 44.6 36.0 - 50.0 fL 06/08/2022 2:54 AM [facility] RDW-CV 13.4 11.2 - 14.8 % 06/08/2022 2:54 AM [facility] Platelet Count 287 150 - 400 10? 3 /uL 06/08/2022 2:54 AM [facility] MPV 10.1 9.4 - 12.9 fL 06/08/2022 2:54 AM [facility] nRBC Absolute 0.00 0 10? 3 /uL 06/08/2022 2:54 AM [facility] nRBC Auto 0.0 0 /100 WBC 06/08/2022 2:54 AM [facility] Blood BLOOD SPECIMEN / Unknown Lab Venipuncture / Unknown 06/08/2022 2:13 AM PAST DUE ACCOUNTS CLERK 06/08/2022 2:43 AM [facility] Deon Taylor MD LAB - HEMATOLOGY ORD ERABLES [facility] [address] [place] [address], [facility] [phone] * (ABNORMAL) BASIC METABOLIC PANEL (CALCIUM TOTAL) (06/08/2022 2:13 AM PAST DUE ACCOUNTS CLERK) BUN 25 7 - 26 mg/dL 06/08/2022 3:12 AM [facility] Creatinine 1.30(H) 0.56 - 0.96 mg/dL 06/08/2022 3:12 AM [facility] Sodium 132(L) 136 - 145 mmol/L 06/08/2022 3:12 AM [facility] Potassium 5.4(H) 3.5 - 4.5 mmol/L 06/08/2022 3:12 AM [facility] Chloride 97(L) 98 - 107 mmol/L 06/08/2022 3:12 AM [facility] CO2 24 22 - 29 mmol/L 06/08/2022 3:12 AM [facility] Glucose 97 70 - 115 mg/dL 06/08/2022 3:12 AM [facility] Calcium 8.4 8.4 - 10.2 mg/dL 06/08/2022 3:12 AM [facility] Anion Gap 16 8 - 18 06/08/2022 3:12 AM [facility] BUN/Creatinine Ratio 19 7 - 23 06/08/2022 3:12 AM [facility] Osmolality Calculated 278 270 - 300 mOsm/kg 06/08/2022 3:12 AM [facility] eGFR by CKD-EPI 44(L) >=90 mL/min/1.7 3 m2 06/08/2022 3:12 AM [facility] Blood BLOOD SPECIMEN / Unknown Lab Venipuncture / Unknown 06/08/2022 2:13 AM PAST DUE ACCOUNTS CLERK 06/08/2022 2:44 AM PAST DUE ACCOUNTS CLERK Deon Taylor MD LAB - CHEMISTRY CHELO QUIGELY [address] [address], [place] [phone] * GLUCOSE - POINT OF CARE (06/07/2022 11:25 PM PAST DUE ACCOUNTS CLERK) Glucose WB/POC 94 70 - 115 mg/dL 06/08/2022 4:12 PM [facility] Specimen Type Cap Fingerstick 2022 4:12 PM [facility] Blood BLOOD SPECIMEN / Unknown 06/07/2022 11:25 PM PAST DUE ACCOUNTS CLERK 06/08/2022 4:12 PM PAST DUE ACCOUNTS CLERK Ama Gonzalez MD LAB - POINT OF C ARE ORDERABLES [address] [address], [place] [phone] * GLUCOSE - POINT OF CARE (06/07/2022 9:31 PM PAST DUE ACCOUNTS CLERK) Glucose WB/POC 82 70 - 115 mg/dL 06/07/2022 9:36 PM [facility] Specimen Type Cap Fingerstick 2022 9:36 PM [facility] Blood BLOOD SPECIMEN / Unknown 06/07/2022 9:31 PM PAST DUE ACCOUNTS CLERK 06/07/2022 9:36 PM PAST DUE ACCOUNTS CLERK Ama Gonzalez MD LAB - POINT OF ARE ORDERABLES [address] [address], [place] [phone] * GLUCOSE - POINT OF CARE (06/07/2022 5:52 PM PAST DUE ACCOUNTS CLERK) Glucose WB/POC 103 70 - 115 mg/dL 06/07/2022 5:52 PM PAST DUE ACCOUNTS CLERK [facility] Specimen Type Arterial 06/07/2022 5:52 PM PAST DUE ACCOUNTS CLERK [facility] Blood BLOOD SPECIMEN / Unknown 06/07/2022 5:52 PM PAST DUE ACCOUNTS CLERK 06/07/2022 5:52 PM PAST DUE ACCOUNTS CLERK Ama Gonzalez MD LAB - POINT OF ARE ORDERABLES [address] [address], [place] [phone] * (ABNORMAL) GLUCOSE - POINT OF CARE (06/07/2022 12:00 PM PAST DUE ACCOUNTS CLERK) Glucose WB/POC 153(H) 70 - 115 mg/dL 06/07/2022 12:04 PM PAST DUE ACCOUNTS CLERK [facility] Specimen Type Cap Fingerstick 2022 12:04 PM PAST DUE ACCOUNTS CLERK [facility] Blood BLOOD SPECIMEN / Unknown 06/07/2022 12:00 PM PAST DUE ACCOUNTS CLERK 06/07/2022 12:04 PM PAST DUE ACCOUNTS CLERK Ama Gonzalez MD LAB - POINT OF ARE ORDERABLES [address] [address], [place] [phone] * GLUCOSE - POINT OF CARE (06/07/2022 8:21 AM PAST DUE ACCOUNTS CLERK) Glucose WB/POC 91 70 - 115 mg/dL 06/07/2022 8:24 AM PAST DUE ACCOUNTS CLERK [facility] Specimen Type Cap Fingerstick 2022 8:24 AM [facility] Blood BLOOD SPECIMEN / Unknown 06/07/2022 8:21 AM PAST DUE ACCOUNTS CLERK 06/07/2022 8:24 AM PAST DUE ACCOUNTS CLERK Ama Gonzalez MD LAB - POINT OF C ARE ORDERABLES [address] [address], [place] [phone] * (ABNORMAL) PHOSPHORUS BLOOD (06/07/2022 2:24 AM PAST DUE ACCOUNTS CLERK) Phosphorus 2.7(L) 2.9 - 5.1 mg/dL 06/07/2022 3:34 AM PAST DUE ACCOUNTS CLERK [facility] Blood BLOOD SPECIMEN / Unknown Lab Venipuncture / Unknown 06/07/2022 2:24 AM PAST DUE ACCOUNTS CLERK 06/07/2022 3:01 AM PAST DUE ACCOUNTS CLERK Ama Gonzalez MD LAB - CHEMISTRY ORDERABLES Performing Organization Address [facility] Co de Phone Number [address] [address], [place] [phone] * MAGNESIUM BLOOD (06/07/2022 2:24 AM PAST DUE ACCOUNTS CLERK) Magnesium 2.1 1.6 - 2.6 mg/dL 06/07/2022 3:34 AM PAST DUE ACCOUNTS CLERK [facility] Blood BLOOD SPECIMEN / Unknown Lab Venipuncture / Unknown 06/07/2022 2:24 AM PAST DUE ACCOUNTS CLERK 06/07/2022 3:01 AM PAST DUE ACCOUNTS CLERK Ama Gonzalez MD LAB - CHEMISTRY ORDERABLES Performing Organization Address City/[facility]/ZIP Co de Phone Number [address] [address], [place] [phone] * (ABNORMAL) CBC W/O DIFFERENTIAL (06/07/2022 2:24 AM PAST DUE ACCOUNTS CLERK) WBC 11.8(H) 3.5 - 10.5 10? 3 /uL 06/07/2022 3:19 AM [facility] RBC 2.85(L) 3.80 - 5.20 10? 6 /uL 06/07/2022 3:19 AM [facility] Hemoglobin 8.5(L) 12.0 - 15.6 g/dL 06/07/2022 3:19 AM [facility] Hematocrit 25.2(L) 35.0 - 45.0 % 06/07/2022 3:19 AM [facility] MCV 88.4 80.7 - 98.3 fL 06/07/2022 3:19 AM [facility] MCH 29.8 26.7 - 34.0 pg 06/07/2022 3:19 AM [facility] MCHC 33.7 30.8 - 35.9 g/dL 06/07/2022 3:19 AM [facility] RDW-SD 43.3 36.0 - 50.0 fL 06/07/2022 3:19 AM [facility] RDW-CV 13.2 11.2 - 14.8 % 06/07/2022 3:19 AM [facility] Platelet Count 291 150 - 400 10? 3 /uL 06/07/2022 3:19 AM [facility] MPV 10.0 9.4 - 12.9 fL 06/07/2022 3:19 AM [facility] nRBC Absolute 0.00 0 10? 3 /uL 06/07/2022 3:19 AM [facility] nRBC Auto 0.0 0 /100 WBC 06/07/2022 3:19 AM [facility] Blood BLOOD SPECIMEN / Unknown Lab Venipuncture / Unknown 06/07/2022 2:24 AM PAST DUE ACCOUNTS CLERK 06/07/2022 3:01 AM [facility] Deon Taylor MD LAB - HEMATOLOGY ORD ERABLES [facility] [address] [place] [address], [facility] [phone] * (ABNORMAL) BASIC METABOLIC PANEL (CALCIUM TOTAL) (06/07/2022 2:24 AM PAST DUE ACCOUNTS CLERK) BUN 25 7 - 26 mg/dL 06/07/2022 3:34 AM [facility] Creatinine 1.26(H) 0.56 - 0.96 mg/dL 06/07/2022 3:34 AM [facility] Sodium 130(L) 136 - 145 mmol/L 06/07/2022 3:34 AM [facility] Potassium 5.3(H) 3.5 - 4.5 mmol/L 06/07/2022 3:34 AM [facility] Chloride 102 98 - 107 mmol/L 06/07/2022 3:34 AM [facility] CO2 24 22 - 29 mmol/L 06/07/2022 3:34 AM [facility] Glucose 121(H) 70 - 115 mg/dL 06/07/2022 3:34 AM [facility] Calcium 8.8 8.4 - 10.2 mg/dL 06/07/2022 3:34 AM [facility] Anion Gap 9 8 - 18 06/07/2022 3:34 AM [facility] BUN/Creatinine Ratio 20 7 - 23 06/07/2022 3:34 AM [facility] Osmolality Calculated 276 270 - 300 mOsm/kg 06/07/2022 3:34 AM [facility] eGFR by CKD-EPI 45(L) >=90 mL/min/1.7 3 m2 06/07/2022 3:34 AM [facility] Blood BLOOD SPECIMEN / Unknown Lab Venipuncture / Unknown 06/07/2022 2:24 AM PAST DUE ACCOUNTS CLERK 06/07/2022 3:01 AM [facility] Deon Taylor MD LAB - CHEMISTRY CHELO QUIGLEY [facility] Organization Address City/State/ZIP Co de Phone Number [facility] [address] [place] [address], [facility] [phone] * (ABNORMAL) GLUCOSE - POINT OF CARE (06/06/2022 8:38 PM PAST DUE ACCOUNTS CLERK) Pathologist [facility] Glucose WB/POC 137(H) 70 - 115 mg/dL 06/06/2022 8:39 PM PAST DUE ACCOUNTS CLERK [facility] Specimen Type Cap Fingerstick 2022 8:39 PM PAST DUE ACCOUNTS CLERK [facility] Blood BLOOD SPECIMEN / Unknown 06/06/2022 8:38 PM PAST DUE ACCOUNTS CLERK 06/06/2022 8:39 PM PAST DUE ACCOUNTS CLERK Ama Gonzalez MD LAB - POINT OF C ARE ORDERABLES [address] [address], [place] [phone] * (ABNORMAL) GLUCOSE - POINT OF CARE (06/06/2022 5:02 PM PAST DUE ACCOUNTS CLERK) Glucose WB/POC 241(H) 70 - 115 mg/dL 06/06/2022 5:03 PM PAST DUE ACCOUNTS CLERK [facility] Specimen Type Arterial 06/06/2022 5:03 PM PAST DUE ACCOUNTS CLERK [facility] Blood BLOOD SPECIMEN / Unknown 06/06/2022 5:02 PM PAST DUE ACCOUNTS CLERK 06/06/2022 5:03 PM PAST DUE ACCOUNTS CLERK Ama Gonzalez MD LAB - POINT OF ARE ORDERABLES [address] [address], [place] [phone] * (ABNORMAL) GLUCOSE - POINT OF CARE (06/06/2022 12:26 PM PAST DUE ACCOUNTS CLERK) Glucose WB/POC 165(H) 70 - 115 mg/dL 06/06/2022 12:27 PM PAST DUE ACCOUNTS CLERK [facility] Specimen Type Arterial 06/06/2022 12:27 PM PAST DUE ACCOUNTS CLERK [facility] Blood BLOOD SPECIMEN / Unknown 06/06/2022 12:26 PM PAST DUE ACCOUNTS CLERK 06/06/2022 12:27 PM PAST DUE ACCOUNTS CLERK Ama Gonzalez MD LAB - POINT OF C ARE ORDERABLES [address] [place] [address], [facility] [phone] * TRANSFUSE RED BLOOD CELL LEUKOREDUCED UNIT(S) (06/06/2022 12:20 PM PAST DUE ACCOUNTS CLERK) Ama Gonzalez MD NURSING - BLOOD PROD TRANSFUSION * TRANSFUSE RED BLOOD CELL LEUKOREDUCED UNIT(S), 1 Units (06/06/2022 12:20 PM PAST DUE ACCOUNTS CLERK) Ama Gonzalez MD NURSING - BLOOD PROD TRANSFUSION * PREPARE (CROSSMATCH) RBC UNIT(S), 1 Units (06/06/2022 9:36 AM PAST DUE ACCOUNTS CLERK) Unit Description AS1 LR PRBC [facility] Unit ABO A [facility] Unit Rh POS [facility] Product Number R02 [facility] Unit Donor # [id number] [facility] Unit Status transfused [facility] Product Code [id number] [facility] Blood Type Barcode 6200 [facility] Expiration Date [id number] [facility] Blood Bank BLOOD SPECIMEN / Unknown 06/04/2022 6:44 AM PAST DUE ACCOUNTS CLERK Ama Gonzalez MD LAB - BLOOD BANK ORDERABLES [facility] [place] [address], [facility] [phone] * (ABNORMAL) GLUCOSE - POINT OF CARE (06/06/2022 8:00 AM PAST DUE ACCOUNTS CLERK) Glucose WB/POC 125(H) 70 - 115 mg/dL 06/06/2022 8:01 AM PAST DUE ACCOUNTS CLERK [facility] Specimen Type Arterial 06/06/2022 8:01 AM PAST DUE ACCOUNTS CLERK [facility] Blood BLOOD SPECIMEN / Unknown 06/06/2022 8:00 AM PAST DUE ACCOUNTS CLERK 06/06/2022 8:01 AM PAST DUE ACCOUNTS CLERK Ama Gonzalez MD LAB - POINT OF C ARE ORDERABLES [address] [address], [facility] [phone] * PHOSPHORUS BLOOD (06/06/2022 3:07 AM PAST DUE ACCOUNTS CLERK) Pathologist [facility] Phosphorus 3.2 2.9 - 5.1 mg/dL 06/06/2022 4:03 AM [facility] Blood BLOOD SPECIMEN / Unknown Lab Venipuncture / Unknown 06/06/2022 3:07 AM PAST DUE ACCOUNTS CLERK 06/06/2022 3:29 AM PAST DUE ACCOUNTS CLERK Aam Gonzalez MD LAB - CHEMISTRY ORDERABLES [address] [address], [facility] [phone] * MAGNESIUM BLOOD (06/06/2022 3:07 AM PAST DUE ACCOUNTS CLERK) Pathologist [facility] Magnesium 1.6 1.6 - 2.6 mg/dL 06/06/2022 4:03 AM [facility] Blood BLOOD SPECIMEN / Unknown Lab Venipuncture / Unknown 06/06/2022 3:07 AM PAST DUE ACCOUNTS CLERK 06/06/2022 3:29 AM PAST DUE ACCOUNTS CLERK Ama Gonzalez MD LAB - CHEMISTRY ORDERABLES Performing Organization Address City/[facility]/ZIP Co de Phone Number [address] [address], [facility] [phone] * (ABNORMAL) CBC W/O DIFFERENTIAL (06/06/2022 3:07 AM PAST DUE ACCOUNTS CLERK) WBC 8.5 3.5 - 10.5 10? 3 /uL 06/06/2022 3:32 AM [facility] RBC 2.26(L) 3.80 - 5.20 10? 6 /uL 06/06/2022 3:32 AM [facility] Hemoglobin 6.7(L) 12.0 - 15.6 g/dL 06/06/2022 3:32 AM [facility] Hematocrit 20.8(L) 35.0 - 45.0 % 06/06/2022 3:32 AM [facility] MCV 92.0 80.7 - 98.3 fL 06/06/2022 3:32 AM [facility] MCH 29.6 26.7 - 34.0 pg 06/06/2022 3:32 AM [facility] MCHC 32.2 30.8 - 35.9 g/dL 06/06/2022 3:32 AM [facility] RDW-SD 43.7 36.0 - 50.0 fL 06/06/2022 3:32 AM [facility] RDW-CV 13.2 11.2 - 14.8 % 06/06/2022 3:32 AM [facility] Platelet Count 254 150 - 400 10? 3 /uL 06/06/2022 3:32 AM [facility] MPV 9.7 9.4 - 12.9 fL 06/06/2022 3:32 AM [facility] nRBC Absolute 0.00 0 10? 3 /uL 06/06/2022 3:32 AM [facility] nRBC Auto 0.0 0 /100 WBC 06/06/2022 3:32 AM [facility] Blood BLOOD SPECIMEN / Unknown Lab Venipuncture / Unknown 06/06/2022 3:07 AM PAST DUE ACCOUNTS CLERK 06/06/2022 3:29 AM [facility] Deon Taylor MD LAB - HEMATOLOGY ORD ERABLES [facility] [address] [place] [address], [facility] [phone] * (ABNORMAL) BASIC METABOLIC PANEL (CALCIUM TOTAL) (06/06/2022 3:07 AM [facility]) BUN 25 7 - 26 mg/dL 06/06/2022 4:03 AM [facility] Creatinine 1.34(H) 0.56 - 0.96 mg/dL 06/06/2022 4:03 AM [facility] Sodium 129(L) 136 - 145 mmol/L 06/06/2022 4:03 AM [facility] Potassium 4.6(H) 3.5 - 4.5 mmol/L 06/06/2022 4:03 AM [facility] Chloride 100 98 - 107 mmol/L 06/06/2022 4:03 AM [facility] CO2 22 22 - 29 mmol/L 06/06/2022 4:03 AM [facility] Glucose 112 70 - 115 mg/dL 06/06/2022 4:03 AM [facility] Calcium 8.9 8.4 - 10.2 mg/dL 06/06/2022 4:03 AM [facility] Anion Gap 12 8 - 18 06/06/2022 4:03 AM [facility] BUN/Creatinine Ratio 19 7 - 23 06/06/2022 4:03 AM [facility] Osmolality Calculated 273 270 - 300 mOsm/kg 06/06/2022 4:03 AM [facility] eGFR by CKD-EPI 42(L) >=90 mL/min/1.7 3 m2 06/06/2022 4:03 AM [facility] Blood BLOOD SPECIMEN / Unknown Lab Venipuncture / Unknown 06/06/2022 3:07 AM PAST DUE ACCOUNTS CLERK 06/06/2022 3:29 AM PAST DUE ACCOUNTS CLERK Deon Taylor MD LAB - CHEMISTRY ORDE SORAIDA [address] [address], [place] [phone] * FOLATE (06/06/2022 3:07 AM PAST DUE ACCOUNTS CLERK) Folate 9.4 7.0 - 31.4 ng/mL 06/06/2022 4:35 AM [facility] Blood BLOOD SPECIMEN / Unknown Lab Venipuncture / Unknown 06/06/2022 3:07 AM PAST DUE ACCOUNTS CLERK 06/06/2022 3:29 AM PAST DUE ACCOUNTS CLERK Ama Gonzalez MD LAB - CHEMISTRY ORDERABLES Performing Organization Address City/[facility]/ZIP Co de Phone Number [address] [address], [place] [phone] * VITAMIN B12 (06/06/2022 3:07 AM PAST DUE ACCOUNTS CLERK) Vitamin B12 382 213 - 816 pg/mL 06/06/2022 4:35 AM [facility] Blood BLOOD SPECIMEN / Unknown Lab Venipuncture / Unknown 06/06/2022 3:07 AM PAST DUE ACCOUNTS CLERK 06/06/2022 3:29 AM PAST DUE ACCOUNTS CLERK Ama Gonzalez MD LAB - CHEMISTRY ORDERABLES [address] [address], [facility] [phone] * FERRITIN (06/06/2022 3:07 AM PAST DUE ACCOUNTS CLERK) Ferritin 94 13 - 204 ng/mL 06/06/2022 4:10 AM [facility] Blood BLOOD SPECIMEN / Unknown Lab Venipuncture / Unknown 06/06/2022 3:07 AM PAST DUE ACCOUNTS CLERK 06/06/2022 3:25 AM PAST DUE ACCOUNTS CLERK Ama Gonzalez MD LAB - CHEMISTRY ORDERABLES Performing Organization Address City/[facility]/ZIP Co de Phone Number [address] [address], [place] [phone] * (ABNORMAL) IRON + TRANSFERRIN PANEL (06/06/2022 3:07 AM PAST DUE ACCOUNTS CLERK) Iron 20(L) 40 - 150 ug/dL 06/06/2022 3:53 AM [facility] Transferrin 162(L) 174 - 382 mg/dL 06/06/2022 3:53 AM [facility] Transferrin Saturation % 10(L) 16 - 50 % 06/06/2022 3:53 AM [facility] TIBC Calculated 203(L) 240 - 450 ug/dL 06/06/2022 3:53 AM [facility] Blood BLOOD SPECIMEN / Unknown Lab Venipuncture / Unknown 06/06/2022 3:07 AM PAST DUE ACCOUNTS CLERK 06/06/2022 3:25 AM PAST DUE ACCOUNTS CLERK Ama Gonzalez MD LAB - CHEMISTRY ORDERABLES Performing Organization Address City/[facility]/ZIP Co de Phone Number [address] [address], [facility] [phone] * HEMOGLOBIN A1C (06/06/2022 3:07 AM PAST DUE ACCOUNTS CLERK) Hemoglobin A1c 5.3 <=5.6 % 06/06/2022 3:38 PM [facility] Estimated Average Glucose 105 mg/dL 06/06/2022 3:38 PM [facility] Comment: HbA1c Interpretation: Normal : < 5.7% Pre-diabetes: 5.7-6.4% Diabetes: Equal to or greater than 6.5% Test results diagnostic of diabetes should be repeated for confirmation. Treatment target values recommended by ADA and other clinical organizations should be used to evaluate metabolic control in patients. Reference: [place] [employer], Standards of Care in Diabetes -2020 In patients 70 years and older consider HbA1c target range of 7.0-7.5% (Reference: Oswaldo Liz et al. JAMDA. 2012) The Sebia assay for the measurement of HbA1c is a National Glycohemoglobin Standardization Program (NGSP) certified method. Blood BLOOD SPECIMEN / Unknown Lab Venipuncture / Unknown 06/06/2022 3:07 AM PAST DUE ACCOUNTS CLERK 06/06/2022 3:28 AM PAST DUE ACCOUNTS CLERK Ama Gonzalez MD LAB - CHEMISTRY ORDERABLES [address] [address], [facility] [phone] * PTH INTACT W/O CALCIUM (06/06/2022 3:07 AM PAST DUE ACCOUNTS CLERK) PTH Intact 72.1 8.0 - 77.0 pg/mL 06/06/2022 4:04 AM [facility] Blood BLOOD SPECIMEN / Unknown Lab Venipuncture / Unknown 06/06/2022 3:07 AM PAST DUE ACCOUNTS CLERK 06/06/2022 3:32 AM PAST DUE ACCOUNTS CLERK Deon Taylor MD LAB - CHEMISTRY CHELO QUIGLEY Performing Organization Address [facility]/ZIP Co de Phone Number [facility] [address] [place] [address], [place] [phone] * VITAMIN D 25-HYDROXY (06/06/2022 3:07 AM PAST DUE ACCOUNTS CLERK) Pathologist [facility] Vitamin D, 25 Hydroxy 53.0 30.0 - 80.0 ng/mL 06/06/2022 4:35 AM PAST DUE ACCOUNTS CLERK [facility] Comment: The recommendations for 25-Hydroxy Vitamin [...] Lab Venipuncture / Unknown 06/06/2022 3:07 AM PAST DUE ACCOUNTS CLERK 06/06/2022 3:29 AM PAST DUE ACCOUNTS CLERK Deon Taylor MD LAB - CHEMISTRY CHELO QUIGLEY Performing Organization Address [facility]/ZIP Co de Phone Number [facility] [address] [place] [address], [place] [phone] * (ABNORMAL) GLUCOSE - POINT OF CARE (06/05/2022 8:51 PM PAST DUE ACCOUNTS CLERK) Pathologist [facility] Glucose WB/POC 152(H) 70 - 115 mg/dL 06/05/2022 8:52 PM PAST DUE ACCOUNTS CLERK [facility] Specimen Type Cap Fingerstick 2022 8:52 PM PAST DUE ACCOUNTS CLERK [facility] Blood BLOOD SPECIMEN / Unknown 06/05/2022 8:51 PM PAST DUE ACCOUNTS CLERK 06/05/2022 8:52 PM PAST DUE ACCOUNTS CLERK Ama Gonzalez MD LAB - POINT OF ARE ORDERABLES [address] [address], [place] [phone] * (ABNORMAL) GLUCOSE - POINT OF CARE (06/05/2022 5:59 PM PAST DUE ACCOUNTS CLERK) Glucose WB/POC 185(H) 70 - 115 mg/dL 06/05/2022 6:02 PM [facility] Specimen Type Cap Fingerstick 2022 6:02 PM PAST DUE ACCOUNTS CLERK [facility] Blood BLOOD SPECIMEN / Unknown 06/05/2022 5:59 PM PAST DUE ACCOUNTS CLERK 06/05/2022 6:02 PM PAST DUE ACCOUNTS CLERK Ama Gonzalez MD LAB - POINT OF ARE ORDERABLES Performing Organization Address City/[facility]/ZIP Co de Phone Number [address] [address], [place] [phone] * (ABNORMAL) GLUCOSE - POINT OF CARE (06/05/2022 4:27 PM PAST DUE ACCOUNTS CLERK) Glucose WB/POC 208(H) 70 - 115 mg/dL 06/05/2022 4:28 PM PAST DUE ACCOUNTS CLERK [facility] Specimen Type Arterial 06/05/2022 4:28 PM PAST DUE ACCOUNTS CLERK [facility] Blood BLOOD SPECIMEN / Unknown 06/05/2022 4:27 PM PAST DUE ACCOUNTS CLERK 06/05/2022 4:28 PM PAST DUE ACCOUNTS CLERK Ama Gonzalez MD LAB - POINT OF C ARE ORDERABLES [address] [address], [place] [phone] * (ABNORMAL) GLUCOSE - POINT OF CARE (06/05/2022 12:37 PM PAST DUE ACCOUNTS CLERK) Pathologist [facility] Glucose WB/POC 163(H) 70 - 115 mg/dL 06/05/2022 12:37 PM [facility] Specimen Type Arterial 06/05/2022 12:37 PM [facility] Blood BLOOD SPECIMEN / Unknown 06/05/2022 12:37 PM PAST DUE ACCOUNTS CLERK 06/05/2022 12:37 PM PAST DUE ACCOUNTS CLERK Ama Gonzalez MD LAB - POINT OF ARE ORDERABLES [facility] [address] [place] [address], [facility] [phone] * (ABNORMAL) CBC W/O DIFFERENTIAL (06/05/2022 12:32 PM PAST DUE ACCOUNTS CLERK) [facility] WBC 10.0 3.5 - 10.5 10? 3 /uL 06/05/2022 12:45 PM [facility] RBC 2.31(L) 3.80 - 5.20 10? 6 /uL 06/05/2022 12:45 PM [facility] Hemoglobin 7.0(L) 12.0 - 15.6 g/dL 06/05/2022 12:45 PM [facility] Hematocrit 20.9(L) 35.0 - 45.0 % 06/05/2022 12:45 PM [facility] MCV 90.5 80.7 - 98.3 fL 06/05/2022 12:45 PM [facility] MCH 30.3 26.7 - 34.0 pg 06/05/2022 12:45 PM [facility] MCHC 33.5 30.8 - 35.9 g/dL 06/05/2022 12:45 PM [facility] RDW-SD 43.0 36.0 - 50.0 fL 06/05/2022 12:45 PM [facility] RDW-CV 13.2 11.2 - 14.8 % 06/05/2022 12:45 PM [facility] Platelet Count 259 150 - 400 10? 3 /uL 06/05/2022 12:45 PM [facility] MPV 9.5 9.4 - 12.9 fL 06/05/2022 12:45 PM [facility] nRBC Absolute 0.00 0 10? 3 /uL 06/05/2022 12:45 PM [facility] nRBC Auto 0.0 0 /100 WBC 06/05/2022 12:45 PM [facility] Blood BLOOD SPECIMEN / Unknown Lab Venipuncture / Unknown 06/05/2022 12:32 PM PAST DUE ACCOUNTS CLERK 06/05/2022 12:37 PM PAST DUE ACCOUNTS CLERK Ama Gonzalez MD LAB - HEMATOLOGY ORDERABLES [facility] [address] [place] [address], [facility] [phone] * XR CERVICAL SPINE 2 OR 3VW (06/05/2022 9:35 AM PAST DUE ACCOUNTS CLERK) Anatomical Region Laterality Modality Spine Radiographic Vivian ging 06/05/2022 11:4 5 AM PAST DUE ACCOUNTS CLERK Impressions 06/05/2022 3:11 PM PAST DUE ACCOUNTS CLERK IMPRESSION: Interval posterior spinal fusion of C4-T2. Poor delineation of the spine in this region in lateral projection. Report drafted by Jon Arias MD (physical therapy resident) I, Kamila Barber MD have personally reviewed and interpreted this examination/study. > Interpreting Provider: Kamila Barber MD on 06/05/2022 3:11 PM Narrative 06/05/2022 3:11 PM PAST DUE ACCOUNTS CLERK PROCEDURE: ??XR CERVICAL SPINE 2 OR 3VW, DATE/TIME OF EXAM: ??06/05/2022 9:37 AM, LOCATION ??[facility] INDICATION: M50.30: Degeneration of cervical [...] 3VW, DATE/TIME OF EXAM: 39:37 AM, LOCATION [facility] INDICATION: M50.30: Degeneration of cervical [...] projection. Report drafted by Jon Arias MD (physical therapy resident) I, Kamila Barber MD have personally reviewed and interpreted this examination/study. > Interpreting Provider: Kamila Barber MD on 06/05/2022 3:11 PM Lyla Blackwell MEAT [employer]NACE REPAIRER DIAGNOSTIC IMAG ING ORDERABLES * GLUCOSE - POINT OF CARE (06/05/2022 8:39 AM PAST DUE ACCOUNTS CLERK) Glucose WB/POC 109 70 - 115 mg/dL 06/05/2022 8:40 AM PAST DUE ACCOUNTS CLERK [facility] Specimen Type Arterial 06/05/2022 8:40 AM PAST DUE ACCOUNTS CLERK [facility] Blood BLOOD SPECIMEN / Unknown 06/05/2022 8:39 AM PAST DUE ACCOUNTS CLERK 06/05/2022 8:40 AM PAST DUE ACCOUNTS CLERK Deon Taylor MD LAB - POINT OF CARE ORDERABLES [facility] [address] [place] [address], [facility] [phone] * (ABNORMAL) CBC W/O DIFFERENTIAL (06/05/2022 4:58 AM PAST DUE ACCOUNTS CLERK) WBC 10.4 3.5 - 10.5 10? 3 /uL 06/05/2022 5:27 AM [facility] RBC 2.41(L) 3.80 - 5.20 10? 6 /uL 06/05/2022 5:27 AM [facility] Hemoglobin 7.1(L) 12.0 - 15.6 g/dL 06/05/2022 5:27 AM [facility] Hematocrit 22.1(L) 35.0 - 45.0 % 06/05/2022 5:27 AM [facility] MCV 91.7 80.7 - 98.3 fL 06/05/2022 5:27 AM [facility] MCH 29.5 26.7 - 34.0 pg 06/05/2022 5:27 AM [facility] MCHC 32.1 30.8 - 35.9 g/dL 06/05/2022 5:27 AM [facility] RDW-SD 43.3 36.0 - 50.0 fL 06/05/2022 5:27 AM [facility] RDW-CV 13.1 11.2 - 14.8 % 06/05/2022 5:27 AM [facility] Platelet Count 273 150 - 400 10? 3 /uL 06/05/2022 5:27 AM [facility] MPV 9.8 9.4 - 12.9 fL 06/05/2022 5:27 AM [facility] nRBC Absolute 0.00 0 10? 3 /uL 06/05/2022 5:27 AM [facility] nRBC Auto 0.0 0 /100 WBC 06/05/2022 5:27 AM [facility] Blood BLOOD SPECIMEN / Unknown Lab Venipuncture / Unknown 06/05/2022 4:58 AM PAST DUE ACCOUNTS CLERK 06/05/2022 5:16 AM PAST DUE ACCOUNTS CLERK Deon Taylor MD LAB - HEMATOLOGY ORD ERABLES [facility] [address] [place] [address], [facility] [phone] * (ABNORMAL) BASIC METABOLIC PANEL (CALCIUM TOTAL) (06/05/2022 4:58 AM PAST DUE ACCOUNTS CLERK) BUN 27(H) 7 - 26 mg/dL 06/05/2022 5:43 AM [facility] Creatinine 1.40(H) 0.56 - 0.96 mg/dL 06/05/2022 5:43 AM [facility] Sodium 132(L) 136 - 145 mmol/L 06/05/2022 5:43 AM [facility] Potassium 5.2(H) 3.5 - 4.5 mmol/L 06/05/2022 5:43 AM [facility] Chloride 103 98 - 107 mmol/L 06/05/2022 5:43 AM [facility] CO2 19(L) 22 - 29 mmol/L 06/05/2022 5:43 AM [facility] Glucose 107 70 - 115 mg/dL 06/05/2022 5:43 AM [facility] Calcium 8.5 8.4 - 10.2 mg/dL 06/05/2022 5:43 AM [facility] Anion Gap 15 8 - 18 06/05/2022 5:43 AM [facility] BUN/Creatinine Ratio 19 7 - 23 06/05/2022 5:43 AM [facility] Osmolality Calculated 280 270 - 300 mOsm/kg 06/05/2022 5:43 AM [facility] eGFR by CKD-EPI 40(L) >=90 mL/min/1.7 3 m2 06/05/2022 5:43 AM [facility] Blood BLOOD SPECIMEN / Unknown Lab Venipuncture / Unknown 06/05/2022 4:58 AM PAST DUE ACCOUNTS CLERK 06/05/2022 5:17 AM PAST DUE ACCOUNTS CLERK Deon Taylor MD LAB - CHEMISTRY CHELO QUIGLEY Performing Organization Address City/[facility]/ZIP Co de Phone Number [address] [address], [place] [phone] * (ABNORMAL) GLUCOSE - POINT OF CARE (06/04/2022 8:20 PM PAST DUE ACCOUNTS CLERK) Glucose WB/POC 120(H) 70 - 115 mg/dL 06/04/2022 8:21 PM PAST DUE ACCOUNTS CLERK [facility] Specimen Type Cap Fingerstick 2022 8:21 PM PAST DUE ACCOUNTS CLERK [facility] Blood BLOOD SPECIMEN / Unknown 06/04/2022 8:20 PM PAST DUE ACCOUNTS CLERK 06/04/2022 8:21 PM PAST DUE ACCOUNTS CLERK Deon Taylor MD LAB - POINT OF CARE ORDERABLES Performing Organization Address [facility]/ZIP Co de Phone Number [address] [address], [place] [phone] * GLUCOSE - POINT OF CARE (06/04/2022 11:51 AM PAST DUE ACCOUNTS CLERK) Glucose WB/POC 111 70 - 115 mg/dL 06/04/2022 11:56 AM PAST DUE ACCOUNTS CLERK [facility] Specimen Type Cap Fingerstick 2022 11:56 AM PAST DUE ACCOUNTS CLERK [facility] Blood BLOOD SPECIMEN / Unknown 06/04/2022 11:51 AM PAST DUE ACCOUNTS CLERK 06/04/2022 11:55 AM PAST DUE ACCOUNTS CLERK Deon Taylor MD LAB - POINT OF CARE ORDERABLES Performing Organization Address City/[facility]/ZIP Co de Phone Number [address] [address], [place] [phone] * FL JOSÉ LUIS SURGERY (06/04/2022 11:30 AM PAST DUE ACCOUNTS CLERK) Narrative [facility] - 06/04/2022 12:52 PM PAST DUE ACCOUNTS CLERK Fluoroscopy was used for this exam in the OR. Please see the Operative report. Deon Taylor MD FLUOROSCOPY ORDERABL ES Performing Organization Address City/[facility]/ZIP Co de Phone Number [facility] * (ABNORMAL) GLUCOSE - POINT OF CARE (06/04/2022 6:39 AM PAST DUE ACCOUNTS CLERK) Glucose WB/POC 130(H) 70 - 115 mg/dL 06/05/2022 12:40 PM PAST DUE ACCOUNTS CLERK [facility] Specimen Type Venous 06/05/2022 12:40 PM PAST DUE ACCOUNTS CLERK [facility] Blood BLOOD SPECIMEN / Unknown 06/04/2022 6:39 AM PAST DUE ACCOUNTS CLERK 06/05/2022 12:40 PM PAST DUE ACCOUNTS CLERK Deon Taylor MD LAB - POINT OF CARE ORDERABLES Performing Organization Address [facility]/ZIP Co de Phone Number [facility] [address] [place] [address], [place] [phone] * TYPE + SCREEN PANEL (06/04/2022 6:39 AM PAST DUE ACCOUNTS CLERK) Antibody Screen NEG 7:24 AM PAST DUE ACCOUNTS CLERK [facility] ABO Rh A POS 06/04/2022 7:24 AM PAST DUE ACCOUNTS CLERK [facility] Blood Bank BLOOD SPECIMEN / Unknown Venipuncture / Unknown 06/04/2022 6:39 AM PAST DUE ACCOUNTS CLERK 06/04/2022 6:44 AM PAST DUE ACCOUNTS CLERK Provider Unknown LAB - BLOOD BANK ORD ERABLES Performing Organization Address [facility] Co de Phone Number [facility] [address] [place] [address], [place] [phone] documented in this encounter Visit Diagnoses Diagnosis [...] 8 hours. $ Given 06/08/2022 8:08 PM PAST DUE ACCOUNTS CLERK 3 mL $ Given 06/08/2022 2:36 PM PAST DUE ACCOUNTS CLERK 3 mL $ Given 06/08/2022 5:08 AM PAST DUE ACCOUNTS CLERK 3 mL acetaminophen (Tylenol) tablet 1,000 mg [...] the MAR. $ Given 06/08/2022 8:07 PM PAST DUE ACCOUNTS CLERK 1,000 mg $ Given 06/08/2022 2:36 PM PAST DUE ACCOUNTS CLERK 1,000 mg $ Given 06/08/2022 9:07 AM PAST DUE ACCOUNTS CLERK 1,000 mg bacitracin topical ointment PRN, Starting on Sat06/04/22 at 0800, Until Sat06/04/22 at 1142, Intra-op $ Given 06/04/2022 8:00 AM PAST DUE ACCOUNTS CLERK 1 g buPROPion SR 12hr (Wellbutrin-SR) tablet 100 mg 100 mg, Oral, 2 TIMES DAILY, First dose on Sat06/04/22 at 1330, Until Discontinued, Do not crush, chew, or cut in half. $ Given 06/08/2022 8:07 PM PAST DUE ACCOUNTS CLERK 100 mg $ Given 06/08/2022 9:07 AM PAST DUE ACCOUNTS CLERK 100 mg $ Given 06/07/2022 8:20 PM PAST DUE ACCOUNTS CLERK 100 mg carvedilol (Coreg) tablet 6.25 mg 6.25 mg, Oral, 2 TIMES DAILY, First dose on Sat06/04/22 at 2100, Until Discontinued, Take with food $ Given 06/08/2022 8:08 PM PAST DUE ACCOUNTS CLERK 6.25 mg $ Given 06/08/2022 9:07 AM PAST DUE ACCOUNTS CLERK 6.25 mg $ Given 06/07/2022 8:20 PM PAST DUE ACCOUNTS CLERK 6.25 mg dextrose 10 % IV bolus [...] Until Discontinued $ Given 06/08/2022 9:07 AM PAST DUE ACCOUNTS CLERK 20 mg $ Given 06/07/2022 8:42 AM PAST DUE ACCOUNTS CLERK 20 mg $ Given 06/06/2022 8:20 AM PAST DUE ACCOUNTS CLERK 20 mg gabapentin (Neurontin) capsule 300 mg 300 mg, Oral, 3 TIMES DAILY, First dose on Sat06/05/22 at 0800, Until Discontinued $ Given 06/08/2022 8:08 PM PAST DUE ACCOUNTS CLERK 300 m g $ Given 06/08/2022 2:36 PM PAST DUE ACCOUNTS CLERK 300 mg $ Given 06/08/2022 9:07 AM PAST DUE ACCOUNTS CLERK 300 mg iron sucrose (Venofer) injection 200 mg 200 mg, Intravenous, DAILY, 5 doses, First dose on Sat06/06/22 at 0930, Last dose on Sat06/10/22 at 0900, May administer up to 200 mg of undiluted solution IVP slowly over 5 minutes $ Given 06/08/2022 9:06 AM PAST DUE ACCOUNTS CLERK 200 mg $ Given 06/07/2022 8:42 AM PAST DUE ACCOUNTS CLERK 200 mg $ Given 06/06/2022 10:37 AM PAST DUE ACCOUNTS CLERK 200 mg latanoprost (Xalatan) 0.005 % ophthalmic solution 1 drop 1 drop, Each Eye, AT BEDTIME, First dose on Sat06/04/22 at 2100, Until Discontinued, Allow at least 5 minutes between administration of multiple ophthalmic products Once opened, store at room temperature $ Given 06/08/2022 8:08 PM PAST DUE ACCOUNTS CLERK 1 drop $ Given 06/07/2022 8:22 PM PAST DUE ACCOUNTS CLERK 1 drop $ Given 06/06/2022 8:27 PM PAST DUE ACCOUNTS CLERK 1 drop lisinopril (Prinivil; Zestril) tablet 20 mg 20 mg, Oral, DAILY, First dose on Sat06/05/22 at 0900, Until Discontinued $ Given 06/08/2022 9:07 AM PAST DUE ACCOUNTS CLERK 20 mg $ Given 06/07/2022 8:41 AM PAST DUE ACCOUNTS CLERK 20 mg $ Given 06/06/2022 8:20 AM PAST DUE ACCOUNTS CLERK 20 mg meclizine (Antivert) tablet 25 mg 25 mg, Oral, 3 TIMES DAILY PRN, Dizziness, Starting on Sat06/07/22 at 0945, Until Sat06/08/22 at 2259 $ Given 06/08/2022 10:50 AM PAST DUE ACCOUNTS CLERK 25 mg $ Given 06/07/2022 1:57 PM PAST DUE ACCOUNTS CLERK 25 mg ondansetron (Zofran) injection 4 mg 4 mg, Intravenous, EVERY 6 HOURS PRN, Nausea/Vomiting, Starting on Sat06/05/22 at 0759, Until Sat06/08/22 at 2259, Administer over 2 to 5 minutes. $ Given 06/06/2022 8:26 PM PAST DUE ACCOUNTS CLERK 4 mg oxyCODONE (immediate release) (Roxicodone) tablet [...] MAR., Post-op $ Given 06/08/2022 10:50 AM PAST DUE ACCOUNTS CLERK 5 mg $ Given 06/06/2022 8:27 PM PAST DUE ACCOUNTS CLERK 5 mg $ Given 06/06/2022 4:57 AM PAST DUE ACCOUNTS CLERK 5 mg pantoprazole EC (Protonix) tablet 40 mg 40 mg, Oral, DAILY, First dose on Sat06/04/22 at 1330, Until Discontinued, Do not crush, chew, or cut in half. $ Given 06/08/2022 9:07 AM PAST DUE ACCOUNTS CLERK 40 mg $ Given 06/07/2022 8:41 AM PAST DUE ACCOUNTS CLERK 40 mg $ Given 06/06/2022 8:20 AM PAST DUE ACCOUNTS CLERK 40 mg polyethylene glycol 3350 (Miralax) packet 17 g 17 g, Oral, DAILY PRN, Constipation, Starting on Sat06/07/22 at 0906, Until Sat06/08/22 at 2259, Mix in 8 ounces of water, juice, soda, coffee or tea prior to administration, Post-op pravastatin (Pravachol) tablet 40 mg 40 mg, Oral, AT BEDTIME, First dose on Sat06/04/22 at 2100, Until Discontinued $ Given 06/08/2022 8:07 PM PAST DUE ACCOUNTS CLERK 40 mg $ Given 06/07/2022 8:20 PM PAST DUE ACCOUNTS CLERK 40 mg $ Given 06/06/2022 8:27 PM PAST DUE ACCOUNTS CLERK 40 mg QUEtiapine (SEROquel) tablet 100 mg 100 mg, Oral, EVERY EVENING, First dose (after last modification) on Sat06/08/22 at 1700, Until Discontinued $ Given 06/08/2022 6:27 PM PAST DUE ACCOUNTS CLERK 100 mg saline nasal spray ([place]; [employer]) 0.65 % nasal spray 2 spray 2 spray, Each Nostril, EVERY 1 HOUR PRN, Dry Nose, Starting on Sat06/06/22 at 0946, Until Sat06/08/22 at 2259 thrombin (recombinant) (Recothrom) solution PRN, Starting on Sat06/04/22 at 0908, Until Sat06/04/22 at 1142, Intra-op $ Given 06/04/2022 9:08 AM PAST DUE ACCOUNTS CLERK 20,000 Units Back vancomycin (Vancocin) injection PRN, Starting on Sat06/04/22 at 1045, Until Sat06/04/22 at 1142, Indication for anti-infective therapy: Surgical prophylaxis, Intra-op $ Given 06/04/2022 10:45 AM PAST DUE ACCOUNTS CLERK 1,000 mg Back vitamin D3 (Cholecalciferol) 10 MCG (400 UNIT) tablet 800 Units 800 Units, Oral, DAILY, First dose (after last modification) on 06/09/22 at 0900, Until Discontinued, 400 units = 10 mcg documented in this encounter Active and Recently Administered Medications Times are shown in PAST DUE ACCOUNTS CLERK. Scheduled Medication Order 06/06/2022 06/07/2022 06/08/2022 0.9% [...] prior to administration, Post-op saline nasal spray ([place]; [employer]) 0.65 % nasal spray 2 spray 2 [...] Post-op documented in this encounter Care Teams Bleach Tester Relationship Specialty Start Date End Date Karrie Phillips MD [address] [place] [address] PCP - General 03/13/22 documented as of this encounter
--- OUTSIDE RECORDS SUMMARY | 2024-04-11 21:58 | XMS_ITS | Encounter Summary ---
Author Organization [facility] Address [address] [place] [address] Care Team Providers Care Head Bucker Name Role Phone Unavailable Primary Care Provider Unavailabl e Reason for Visit * Reason Onset Date Comments Appointment 02/26/2022 Encounter Details Date Type Department Care Team (Late st Contact Info) Description 02/26/2022 Telephone [facility] [address] [facility], [place], [place] [address] Anabell Avendaño, RN Appointment Social [...] Anabell Avendaño RN - 02/26/2022 12:26 PM CONSTRUCTION PLANT OPERATOR Scheduled pt for clinic appt with Dr. Taylor on 03/13. Provided her with clinic details and contact information to call with additional questions or concerns. TRUCTION PLANT OPERATOR documented in this encounter Plan of Treatment Upcoming Encounters Date Type Department Care Team (Late st Contact Info) Description 06/02/2024 1:45 PM CONSTRUCTION PLANT OPERATOR Office Visit [facility] [address] [place] [address], [facility] [place] [address] Deon Taylor MD [address] [place] [address] documented as of this encounter Visit Diagnoses Not on filedocumented in this encounter
--- OUTSIDE RECORDS SUMMARY | 2024-04-11 21:58 | XMS_ITS | Encounter Summary ---
Author Organization [facility] Address [address] [place] [address] Care Team Providers Care Technical Sales Director Name Role Phone Unavailable Primary Care Provider Unavailabl e Reason for Visit * Reason Onset Date Comments ED Referral 02/14/2022 Encounter Details Date Type Department Care Team (Late st Contact Info) Description 02/14/2022 Telephone [facility] [address] [place] [phone] Makenzie Sin DO [address] [place] [phone] ED Referral Social History Tobacco Use Types [...] 72 year old female currently in the [facility] ED. Per [facility] care team, the [...] patient who was amenable to transfer to [facility] for evaluation. Requested that her images be sent on a disc due to inability to access them in [employer] or [employer]. Makenzie Sin DO Ophthalmology Resident 02/14/2022 7:54 PM TRICAL POWER ENGINEER documented in this encounter Plan of Treatment Upcoming Encounters Date Type Department Care Team (Late st Contact Info) Description 06/02/2024 1:45 PM ELECTRICAL POWER ENGINEER Office Visit [facility] - Orthopedics [address] [place] [address], [place] [address] Deon Taylor MD [address] [place] [phone] documented as of this encounter Visit Diagnoses Not on filedocumented in this encounter
--- OUTSIDE RECORDS SUMMARY | 2024-04-11 21:58 | XMS_ITS | Encounter Summary ---
Author Organization [facility] Address [address] [place] [address] Care Team Providers Care Can Capper Name Role Phone Unavailable Primary Care Provider Unavailabl e Reason for Visit * Reason Onset Date Comments Consultation 02/14/2022 Encounter Details Date Type Department Care Team (Late st Contact Info) Description 02/14/2022 Telephone [facility] [address] [place] [address] Deon Perez MD [address] [facility] [place] [address] Consultation Social History Tobacco Use [...] PM CST ENT Telephone Note Spoke to [facility] center around 7:06PM regarding patient Kandace Cole who sustained facial trauma after a fall and presented to [facility] ED. Discussed with provider at [...] Otolaryngology - Head and Neck Surgery 02/14/2022 P BUCKLER MACHINE documented in this encounter Plan of Treatment Upcoming Encounters Date Type Department Care Team (Late st Contact Info) Description 06/02/2024 1:45 PM STRAP BUCKLER MACHINE Office Visit [facility] [address] [place] [address], [place] [address] Deon Taylor MD [address] [place] [address] documented as of this encounter Visit Diagnoses Not on filedocumented in this encounter
--- OUTSIDE RECORDS SUMMARY | 2024-04-11 21:59 | XMS_ITS | Encounter Summary ---
Author Organization [facility] Address [address], [place] [address] Phone Care Team Providers Care Screw Remover Name Role Phone Karrie Tompkins MD Primary Care Provider [phone] Encounter Details Date Type Department Care Team (Latest Contact Info) Description 08/23/2021 1:15 PM CDT Office Visit [facility] [address] [place] [address], [address] [place] [address] Aubrey Reyna MD [address] [facility], [address] [place] [address] Secondary hyperparathyroidism (CMS-HCC) (Primary Dx); Chronic kidney [...] , Rfl: ??? Lancets (OneTouch Delica Plus Yginmo12W) [facility] , Disp: , Rfl: ??? latanoprost (XALATAN) [...] kidney disease stage 4 ([facility]-HCC) Diabetes mellitus with renal manifestations ([facility]-HCC) Benign hypertension with chronic kidney disease Secondary hyperparathyroidism ([facility]-HCC) documented in this encounter Results * (ABNORMAL) PTH Intact w/o Calcium, Serum (12/05/2021 7:46 AM CDT) PTH, Intact, Serum/Plasma 92(H) 16 - 77 pg/mL [facility] ([facility]) Comment: Interpretive [...] AM CDT 12/05/2021 7:47 AM CDT Narrative [facility] ([facility]) - 12/06/2021 12:25 PM CDT FASTING:YES FASTING: YES Resulting Agency Comment Performing Organization Information: ?Site ID: BRANT ?Name: [facility] ?Address: [address] [id number] ?Director: Hakeem Jenkins D.O., MPH Aubrey Reyna MD LAB BLOOD ORDERABLES Performing Organization Address [facility]/ZIP Co de Phone Number [facility] (ST) * Total Protein w/ Creatinine, Urine, Random (12/05/2021 7:46 AM CDT) Creatinine, Urine 98 20 - 275 mg/dL [facility] ([facility]) Protein/Creatin ine, Urine 163 24 - 184 mg/g creat [facility] ([facility]) Protein/Creatin ine, Urine 0.163 0.024 - 0.184 mg/mg creat [facility] ([facility]) Protein, Urine 16 5 - 24 mg/dL [facility] ([facility]) 12/05/2021 7:46 AM CDT 12/05/2021 7:47 AM CDT Narrative [facility] ([facility]) - 12/06/2021 12:25 PM CDT FASTING:YES FASTING: YES Resulting Agency Comment Performing Organization Information: ?Site ID: [id number] ?Name: [facility] ?Address: [address] [place] [id number] ?Director: Hakeem Jenkins D.O., MPH Aubrey Reyna MD LAB URINE ORDERABLES Performing Organization Address [facility] Co de Phone Number [facility] ([facility]) * (ABNORMAL) Renal Function Panel (RFP) (12/05/2021 7:46 AM CDT) Glucose, Serum/Plasma 93 65 - 99 mg/dL [facility] ([facility]) Comment: ? Fasting reference interval Urea nitrogen, Serum/Plasma (BUN) 39(H) 7 - 25 mg/dL [facility] ([facility]) Creatinine, Serum/Plasma 1.97(H) 0.60 - 1.00 mg/dL [facility] ([facility]) [...] Sodium, Serum/Plasma 131(L) 135 - 146 mmol/L [facility] ([facility]) Potassium, Serum/Plasma 4.7 3.5 - 5.3 mmol/L [facility] ([facility]) Chloride, Serum/Plasma 97(L) 98 - 110 mmol/L [facility] ([facility]) Carbon dioxide CO2), total, Serum/Plasma 24 20 - 32 mmol/L [facility] ([facility]) Calcium, Serum/Plasma 9.3 8.6 - 10.4 mg/dL [facility] ([facility]) Phosphate, Serum/Plasma 4.1 2.1 - 4.3 mg/dL [facility]) Albumin, Serum/Plasma 4.1 3.6 - 5.1 g/dL [facility] ([facility]) Blood (Blood, Venous) 12/05/2021 7:46 AM CDT 12/05/2021 7:47 AM CDT Narrative [facility] ([facility]) - 12/06/2021 12:25 PM CDT FASTING:YES FASTING: YES Resulting Agency Comment Performing Organization Information: ?Site ID: [id number] ?Name: [facility] ?Address: [address] [place], [place] [address] [id number] ?Director: Hakeem Jenkins D.O., MPH Aubrey Reyna MD LAB BLOOD ORDERABLES [facility] ([facility]) documented in this encounter Visit Diagnoses Diagnosis Secondary hyperparathyroidism (CMS-HCC)- Primary Chronic kidney disease stage 4 (CMS-HCC) Diabetes mellitus with renal manifestations (CMS-HCC) Benign hypertension with chronic kidney disease documented in this encounter Care Teams Screw Remover Relationship Specialty Start Date End Date Karrie Tompkins MD [address] [place] [address] [place] [phone] PCP - General 09/07/18 documented as of this encounter
--- OUTSIDE RECORDS SUMMARY | 2024-04-11 21:59 | XMS_ITS | Encounter Summary ---
Author Organization [facility] Address [facility] [place], [place] [address] [place] [address] Care Team Providers Care Hospice Home Health Aide Name Role Phone Miah Montiel MD Primary Care Provider Unavailable Miah Montiel MD Primary Care Provider Unavailable Miah Montiel MD Primary Care Provider Unavailable Encounter Details Date Type Department Care Team (Late st Contact Info) Description 04/26/1995 Abstract [place] [address] Miah Montiel MD Social History Tobacco Use [...] on filedocumented in this encounter Care Teams Hospice Home Health Aide Relationship Specialty Start Date End Date Miah Montiel MD PCP - General 12/31/12 Miah Montiel MD PCP - General 10/13/12 Miah Montiel MD PCP - General 09/15/10 documented as of this encounter
--- OUTSIDE RECORDS SUMMARY | 2024-04-11 21:59 | XMS_ITS | Encounter Summary ---
Author Organization [facility] Address [facility] [facility] [place] [address] [place] [address] Care Team Providers Care Nba Player Name Role Phone Miah Montiel MD Primary Care Provider Unavailable Miah Montiel MD Primary Care Provider Unavailable Miah Montiel MD Primary Care Provider Unavailable Encounter Details Date Type Department Care Team (Late st Contact Info) Description 09/27/1995 Abstract [place] [address] Miah Montiel MD Social History Tobacco Use [...] on filedocumented in this encounter Care Teams Nba Player Relationship Specialty Start Date End Date Miah Montiel MD PCP - General 12/31/12 Miah Montiel MD PCP - General 10/13/12 Miah Montiel MD PCP - General 09/15/10 documented as of this encounter
--- OUTSIDE RECORDS SUMMARY | 2024-04-11 21:59 | XMS_ITS | Encounter Summary ---
Author Organization [facility] Address [facility] [facility] [place] [address] [place] [address] Care Team Providers Care Residential Pest Control Technician Name Role Phone Md Generic Willa HANEY Primary Care Provider Unavailable Miah Haney MD Primary Care Provider Unavailable Md Generic Willa HANEY Primary Care Provider Unavailable Encounter Details Date Type Department Care Team (Late st Contact Info) Description 10/21/2008 Abstract [facility] [place] [address] Adi Vieira MD [address] [place] [address] Social History Tobacco Use Types Packs/Day Years [...] on filedocumented in this encounter Care Teams Residential Pest Control Technician Relationship Specialty Start Date End Date Miah Haney MD PCP - General 12/31/12 Miah Haney MD PCP - General 10/13/12 Miah Haney MD PCP - General 09/15/10 documented as of this encounter
--- OUTSIDE RECORDS SUMMARY | 2024-04-11 21:59 | XMS_ITS | Encounter Summary ---
Author Organization [facility] Address [facility]. [place], [place] [address] [place] [address] Care Team Providers Care Bilingual Operator Name Role Phone None, Provider Primary Care [...] Coronavirus/COVID-19? No / Unsure 05/27/2022 1:34 PM REAL PROPERTY APPRAISER documented as of this encounter Plan of Treatment Not on file documented as of this encounter Visit Diagnoses Not on filedocumented in this encounter Care Teams Bilingual Operator Relationship Specialty Start Date End Date None, Provider, PCP - General UNKNOWN PHYSICIAN SPECIALTY 05/27/22 documented as of this encounter
--- OUTSIDE RECORDS SUMMARY | 2024-04-11 21:59 | XMS_ITS | Encounter Summary ---
Author Organization [facility] Address [facility] [address] [place] [address] Care Team Providers Care Computer Science Intern Name Role Phone Md Generic Willa HANEY Primary Care Provider Unavailable Miah Haney MD Primary Care Provider Unavailable Md Generic Willa HANEY Primary Care Provider Unavailable Encounter Details Date Type Department Care Team (Late st Contact Info) Description 10/05/2008 Abstract [facility] [place] [address] Adi Vieira MD [address] [place] [address] Social History Tobacco Use Types Packs/Day Years [...] on filedocumented in this encounter Care Teams Computer Science Intern Relationship Specialty Start Date End Date Miah Haney MD PCP - General 12/31/12 Miah Haney MD PCP - General 10/13/12 Miah Haney MD PCP - General 09/15/10 documented as of this encounter
--- OUTSIDE RECORDS SUMMARY | 2024-04-11 21:59 | XMS_ITS | Encounter Summary ---
Author Organization [facility] Address [facility] [place] [address] [place] [address] Care Team Providers Care Trade Mark Attorney Name Role Phone None, Provider MD Primary Care Provider Unavaila ble Reason for Referral * (Routine) - Closed Specialty Diagnoses / Procedures Referred By Contac t Referred To Contact Procedures LACERATION REPAIR Radha Salcedo MD 1 [place] [address] Phone: tel: fax: Referral ID Status Reason Start Date Expiration Date Visits Re quested Visits Authorized [id number] Closed 05/27/2022 05/27/2023 1 1 MOTIVE OPERATOR HELPER * Imaging (Emergency) - Closed Specialty Diagnoses / Procedures Referred By Contac t Referred To Contact RADIOLOGY Procedures CT CERV SPINE WO Radha Cortes MD 1 [place] [address] Phone: tel: fax: Referral ID Status Reason Start Date Expiration Date Visits Re quested Visits Authorized [id number] Closed 05/27/2022 05/27/2023 1 1 MOTIVE OPERATOR HELPER * Imaging (Emergency) - Closed Specialty Diagnoses / Procedures Referred By Contac t Referred To Contact RADIOLOGY Procedures CT HEAD WO Radha Cortes MD 1 [place] [address] Phone: tel: fax: Referral ID Status Reason Start Date Expiration Date Visits Re quested Visits Authorized [id number] Closed 05/27/2022 05/27/2023 1 1 MOTIVE OPERATOR HELPER Reason for Visit * Reason Comments Fall Head Injury Arm Pain Encounter Details Date Type Department Care Team (Late st Contact Info) Description 05/27/2022 1:17 PM LOCOMOTIVE OPERATOR HELPER - 05/27/2022 4:30 PM LOCOMOTIVE OPERATOR HELPER Emergency [facility] [place] [address] Radha Salcedo MD 1 [facility] [place] [address] Fall; Head Injury; Arm Pain [...] Coronavirus/COVID-19? No / Unsure 05/27/2022 1:34 PM LOCOMOTIVE OPERATOR HELPER documented as of this encounter Last Filed Vital Signs Vital Sign Reading Time Taken Comments Blood Pressure 102/68 05/27/2022 1:18 PM LOCOMOTIVE OPERATOR HELPER Pulse 70 05/27/2022 1:18 PM LOCOMOTIVE OPERATOR HELPER Temperature 36.8 ??C (98.3 ??F) 05/27/2022 1:18 PM CS T Respiratory Rate 18 05/27/2022 1:18 PM LOCOMOTIVE OPERATOR HELPER Oxygen Saturation 100% 05/27/2022 1:18 PM LOCOMOTIVE OPERATOR HELPER Inhaled Oxygen Concentration - - Weight 64.7 kg (142 lb 10.2 oz) 05/27/2022 1:18 PM LOCOMOTIVE OPERATOR HELPER Height 154.9 cm (5' 1 ) 05/27/2022 1:18 PM LOCOMOTIVE OPERATOR HELPER Body Mass Index 26.95 05/27/2022 1:18 PM LOCOMOTIVE OPERATOR HELPER documented in this encounter Discharge Instructions * Attachments The following attachments cannot be sent through Care Everywhere. * Laceration Repair With Troy Discharge Instructions (Thai) * Wound Care (Thai) * Laceration Repair (Thai) * Joint Pain (Thai) * Minor Head Injury (Thai) documented in this encounter ED Notes * [...] Patient verbalized understanding of the discharge instructions. MOTIVE OPERATOR HELPER * Renetta Clarke RN - 05/27/2022 3:14 PM CST Pt's hair on back of the head is matted with blood at this time. Hair and skin cleaned with normal saline per doctors request. Wound now visible. Provider notified for re-evaluation of head wound nowthat it is visible MOTIVE OPERATOR HELPER * Radha Salcedo MD - 05/27/2022 1:50 PM CSTAssociated Order(s): Lac Repair Chief Complaint Chief Complaint Patient presents with ??? Fall ??? Head Injury ??? Arm Pain History of Present Illness History provided by: Patient, medical records and EMS personnel spanish interpreter/translator used: No Trauma Mechanism of injury: fall [...] LT MIN 3V Final Result by User, [id number] (05/27 1442) EXAMINATION: XR WRIST LT MIN 3V HISTORY: [...] SHOULDER LT 3V Final Result by User, [id number] (05/27 5659) EXAMINATION: XR SHOULDER LT 3V HISTORY: Pain [...] SHOULDER RT 3V Final Result by User, [id number] (05/27 5287) Examination: XR SHOULDER RT 3V Exam time: [...] RT MIN 3V Final Result by User, [id number] (05/27 5792) IMAGING STUDIES: XR WRIST RT MIN 3V [...] RT MIN 2V Final Result by User, [id number] (05/27 1787) Examination: XR HUMERUS RT MIN 2V Exam [...] HIP JUAN 2V+PELVIS Final Result by User, [id number] (05/27 7131) Date: 05/27/2022 2:04 PM Exam: XR HIP [...] HEAD WO CON Final Result by User, [id number] (05/27 1414) CT HEAD WITHOUT CONTRAST Exam [...] SPINE WO CON Final Result by User, [id number] (05/27 1417) CT CERVICAL SPINE WITHOUT CONTRAST [...] of the C7-T1 level. These result in jcqx-ln-flrayelw central cervical stenosis. The facets are normally [...] Performed by: Radha Salcedo MD Authorized by: aRdha Salcedo MD Consent: Consent obtained: Verbal Consent given by: Patient Risks discussed: Infection, pain, need for additional repair, poor cosmetic result and poor wound healing [place] protocol: Patient identity confirmed: Verbally with patient, arm band and hospital- assigned identification number Laceration details: Location: Scalp Length (cm): 1 Depth (mm): 1 Treatment: Area cleansed with: Saline Skin repair: Repair method: Troy Number of mahesh: 1 Repair type: Repair type: Simple Post-procedure details: Dressing: Open (no dressing) Procedure completion: Tolerated well, no immediate complications Date/Time: 05/27/2022 6:09 PM Performed by: Radha Salcedo MD Authorized by: Radha Salcedo MD Consent: Consent obtained: Verbal Consent given by: Patient Risks discussed: Infection, pain, need for additional repair, poor cosmetic result and poor wound healing [place] protocol: Patient identity confirmed: Verbally with patient, arm band and hospital- assigned identification number Laceration details: Location: Scalp Length (cm): 1 Depth (mm): 1 Treatment: Area cleansed with: Saline Skin repair: Repair method: Troy Number of mahesh: 1 Repair type: Repair type: Simple Post-procedure details: Dressing: Open (no dressing) Procedure completion: Tolerated well, no immediate complications Date/Time: 05/27/2022 6:10 PM Performed by: Radha Salcedo MD Authorized by: Radha Salcedo MD Consent: Consent obtained: Verbal Consent given by: Patient Risks discussed: Infection, pain, need for additional repair, poor cosmetic result and poor wound healing [place] protocol: Patient identity confirmed: Verbally with patient, [...] by the physician. Radha Salcedo MD 05/27/221810 MOTIVE OPERATOR HELPER * Renetta Clarke RN - 05/27/2022 1:42 PM CST Pt's shirt cut off of pt at this time MOTIVE OPERATOR HELPER * Renetta Clarke RN - 05/27/2022 1:22 PM CST Pt to ED via EMS from [facility], following a fall. Pt states she lost [...] episodes of emesis en route to hospital. MOTIVE OPERATOR HELPER * Olimpia Munoz RN - 05/27/2022 1:17 PM CST Bed: 18 Expected date: Expected time: Means of arrival: Comments: [id number] MOTIVE OPERATOR HELPER documented in this encounter Plan of Treatment Not on file documented as of this encounter Procedures Procedure Name Priority Date/Time Associated Diagnosis Comments LACERATION REPAIR Routine 05/27/2022 6:0 8 PM LOCOMOTIVE OPERATOR HELPER XR WRIST LT MIN 3V STAT 05/27/2022 2: 38 PM LOCOMOTIVE OPERATOR HELPER XR SHOULDER RT 3V STAT 05/27/2022 2:3 6 PM LOCOMOTIVE OPERATOR HELPER XR SHOULDER LT 3V STAT 05/27/2022 2:3 6 PM LOCOMOTIVE OPERATOR HELPER XR WRIST RT MIN 3V STAT 05/27/2022 2: 36 PM LOCOMOTIVE OPERATOR HELPER XR HUMERUS RT MIN 2V STAT 05/27/2022 2:36 PM LOCOMOTIVE OPERATOR HELPER XR HIP JUAN 2V+PELVIS STAT 05/27/2022 2:36 PM LOCOMOTIVE OPERATOR HELPER CT HEAD WO CON STAT 05/27/2022 2:08 PM LOCOMOTIVE OPERATOR HELPER CT CERV SPINE WO CON STAT 05/27/2022 2:08 PM LOCOMOTIVE OPERATOR HELPER documented in this encounter Results * Lac Repair (05/27/2022 6:08 PM LOCOMOTIVE OPERATOR HELPER) Radha Cornejo MD - 05/27/2022 6:08 PM LOCOMOTIVE OPERATOR HELPER Radha Salcedo MD ? 05/27/2022 ??6:11 PM Lac Repair Date/Time: 05/27/2022 6:08 PM Performed by: Radha Salcedo MD Authorized by: Radha Salcedo MD Consent: ??Consent obtained: ??Verbal ??Consent given by: ??Patient ??Risks discussed: ??Infection, pain, need for additional repair, poor cosmetic result and poor wound healing [place] protocol: ??Patient identity confirmed: ??Verbally with patient, arm band and hospital-assigned identification number Laceration details: ??Location: ??Scalp ??Length (cm): ??1 ??Depth (mm): ??1 Treatment: ??Area cleansed with: ??Saline Skin repair: ??Repair method: ??Troy ??Number of mahesh: ??1 Repair type: ??Repair type: ??Simple Post-procedure details: ??Dressing: ??Open (no dressing) ??Procedure completion: ??Tolerated well, no immediate complications us Radha Salcedo MD PROCEDURE/MINOR SURGICAL ORDERA BLES Final Result * XR WRIST LT MIN 3V (05/27/2022 2:38 PM LOCOMOTIVE OPERATOR HELPER) Anatomical Region Laterality Modality Wrist Radiographic Vivian ging 05/27/2022 2:38 PM LOCOMOTIVE OPERATOR HELPER Impressions 05/27/2022 2:40 PM LOCOMOTIVE OPERATOR HELPER IMPRESSION: 1. ??No acute fracture identified. 2. ??Mild widening of the scapholunate interval. 3. ??Other chronic or nonurgent findings as described above. Referred By: ?? Interpreted By: Jose Alberto Reeves MD, 05/27/2022 2:38 PM Narrative 05/27/2022 2:40 PM LOCOMOTIVE OPERATOR HELPER EXAMINATION: XR WRIST LT MIN 3V HISTORY: [...] GENERAL IMAGING Final Result * XR HIP JUNA 2V+PELVIS (05/27/2022 2:36 PM LOCOMOTIVE OPERATOR HELPER) Anatomical Region Laterality Modality Hip, Pelvis Radiographic Vivian ging 05/27/2022 2:13 PM LOCOMOTIVE OPERATOR HELPER Impressions 05/27/2022 2:15 PM LOCOMOTIVE OPERATOR HELPER Impression: No acute osseous abnormality. Ordered By: RADHA SALCEDO Interpreted By: Sky Wayne Jr, MD, 05/27/2022 2:13 PM Narrative 05/27/2022 2:15 PM LOCOMOTIVE OPERATOR HELPER Date: 05/27/2022 2:04 PM Exam: XR HIP [...] HUMERUS RT MIN 2V (05/27/2022 2:36 PM LOCOMOTIVE OPERATOR HELPER) Anatomical Region Laterality Modality Humerus Radiographic Vivian ging 05/27/2022 2:41 PM LOCOMOTIVE OPERATOR HELPER Impressions 05/27/2022 2:45 PM LOCOMOTIVE OPERATOR HELPER IMPRESSION: No acute abnormality of the mid and distal humerus. Referred By: ?? Interpreted By: Shadi Franklin MD, 05/27/2022 2:41 PM Narrative 05/27/2022 2:45 PM LOCOMOTIVE OPERATOR HELPER Examination: XR HUMERUS RT MIN 2V Exam [...] WRIST RT MIN 3V (05/27/2022 2:36 PM LOCOMOTIVE OPERATOR HELPER) Anatomical Region Laterality Modality Wrist Radiographic Vivian ging 05/27/2022 2:43 PM LOCOMOTIVE OPERATOR HELPER Impressions 05/27/2022 2:44 PM LOCOMOTIVE OPERATOR HELPER IMPRESSION: 1. ??There is no evidence of [...] 05/27/2022 2:43 PM Narrative 05/27/2022 2:44 PM LOCOMOTIVE OPERATOR HELPER IMAGING STUDIES: ??XR WRIST RT MIN 3V [...] XR SHOULDER RT 3V (05/27/2022 2:36 PM LOCOMOTIVE OPERATOR HELPER) Anatomical Region Laterality Modality Shoulder Radiographic Vivian ging 05/27/2022 2:39 PM LOCOMOTIVE OPERATOR HELPER Impressions 05/27/2022 2:44 PM LOCOMOTIVE OPERATOR HELPER IMPRESSION: 1. ??There is a high riding [...] 05/27/2022 2:39 PM Narrative 05/27/2022 2:44 PM LOCOMOTIVE OPERATOR HELPER Examination: XR SHOULDER RT 3V Exam time: [...] XR SHOULDER LT 3V (05/27/2022 2:36 PM LOCOMOTIVE OPERATOR HELPER) Anatomical Region Laterality Modality Shoulder Radiographic Vivian ging 05/27/2022 2:40 PM LOCOMOTIVE OPERATOR HELPER Impressions 05/27/2022 2:44 PM LOCOMOTIVE OPERATOR HELPER IMPRESSION: 1. ??No acute osseous abnormality identified. 2. ??Other chronic or nonurgent findings as described above. Referred By: ?? Interpreted By: Jose Alberto Reeves MD, 05/27/2022 2:40 PM Narrative 05/27/2022 2:44 PM LOCOMOTIVE OPERATOR HELPER EXAMINATION: XR SHOULDER LT 3V HISTORY: Pain [...] CERV SPINE WO CON (05/27/2022 2:08 PM LOCOMOTIVE OPERATOR HELPER) Anatomical Region Laterality Modality Spine Computed Tomogra phy 05/27/2022 2:13 PM LOCOMOTIVE OPERATOR HELPER Impressions 05/27/2022 2:15 PM LOCOMOTIVE OPERATOR HELPER IMPRESSION: 1.Extensive degenerative changes. No evidence of acute injury Ordered By: RADHA SALCEDO Interpreted By: Deni Martínez MD, 05/27/2022 2:13 PM Narrative 05/27/2022 2:15 PM LOCOMOTIVE OPERATOR HELPER CT CERVICAL SPINE WITHOUT CONTRAST CLINICAL HISTORY: [...] of the C7-T1 level. These result in cpuc-da-yefynwyx central cervical stenosis. The facets are normally [...] of the C7-T1 level. These result in qmxg-xt-dzcpprtmklaqasm cervical stenosis. The facets are normally aligned [...] CT HEAD WO CON (05/27/2022 2:08 PM LOCOMOTIVE OPERATOR HELPER) Anatomical Region Laterality Modality Head Computed Tomogra phy 05/27/2022 2:12 PM LOCOMOTIVE OPERATOR HELPER Impressions 05/27/2022 2:13 PM LOCOMOTIVE OPERATOR HELPER IMPRESSION: Left maxillary sinusitis. No evidence of acute intracranial injury Ordered By: RADHA SALCEDO Interpreted By: Deni Martínez MD, 05/27/2022 2:12 PM Narrative 05/27/2022 2:13 PM LOCOMOTIVE OPERATOR HELPER CT HEAD WITHOUT CONTRAST Exam date: 05/27/2022 [...] 05/27/22 at 1345 Given 05/27/2022 1:43 PM LOCOMOTIVE OPERATOR HELPER 2 mg morphine injection 2 mg 2 mg, Intravenous, Once, 1 dose, On 05/27/22 at 1445 Given 05/27/2022 2:54 PM LOCOMOTIVE OPERATOR HELPER 2 mg ondansetron (ZOFRAN) injection 4 mg 4 mg, Intravenous, Once, 1 dose, On 05/27/22 at 1345, IV push over 2-5 minutes. Given 05/27/2022 1:43 PM LOCOMOTIVE OPERATOR HELPER 4 mg documented in this encounter Active and Recently Administered Medications Times are shown in LOCOMOTIVE OPERATOR HELPER. Scheduled Medication Order 05/25/2022 05/26/2022 05/27/2022 morphine [...] RN) documented in this encounter Care Teams Trade Mark Attorney Relationship Specialty Start Date End Date None, Provider, MD PCP - General UNKNOWN PHYSICIAN SPECIALTY 05/27/22 documented as of this encounter
--- OUTSIDE RECORDS SUMMARY | 2024-04-11 21:59 | XMS_ITS | Clinical Summary ---
Author Organization [facility] Address [address] [place] [address] Phone Care Team Providers Care Wireline Operator Name Role Phone Karrie Tompkisn MD Primary Care Provider [phone] Allergies Active Allergy Reactions Criticality Noted Date [...] strip 10/05/2020 Active Lancets (OneTouch Delica Plus [id number]) misc 10/05/2020 Active cyanocobalamin 500 MCG tablet [...] Highest Risk Completed 07/01/2019, 06/30/2018 Care Teams Wireline Operator Relationship Specialty Start Date End Date Karrie Tompkins MD [address] [place] [phone] PCP - General 09/07/18
--- OUTSIDE RECORDS SUMMARY | 2024-04-11 21:59 | XMS_ITS | Encounter Summary ---
Author Organization [facility] Address [facility] [address] [address] Phone Care Team Providers Care Brazer Repair And Salvage Name Role Phone Karrie Tompkins MD Primary Care Provider [phone] Reason for Visit * Reason Comments Med Refill Encounter Details Date Type Department Care Team (Late st Contact Info) Description 01/04/2022 Refill [facility] Nephrology and Hypertension [address] [place] [address], [address] [place] [address] Aubrey Reyna MD [address] [facility], [address] [place] [address] Social History Tobacco Use Types Packs/Day Years [...] on filedocumented in this encounter Care Teams Brazer Repair And Salvage Relationship Specialty Start Date End Date Karrie Tompkins MD [address] [place] [address] [place] [id number] PCP - General 09/07/18 documented as of this encounter
--- OUTSIDE RECORDS SUMMARY | 2024-04-11 21:59 | XMS_ITS | Encounter Summary ---
Author Organization [facility] Address [facility] [place] [address] [place] [address] Care Team Providers Care Bulb Filler Name Role Phone Md Generic Willa HANEY Primary Care Provider Unavailable Miah Haney MD Primary Care Provider Unavailable Md Generic Willa HANEY Primary Care Provider Unavailable Encounter Details Date Type Department Care Team (Late st Contact Info) Description 09/15/2010 Abstract [facility] [place] [address] Adi Vieira MD [address] [place] [address] Social History Tobacco Use Types Packs/Day Years [...] esophagus documented in this encounter Care Teams Bulb Filler Relationship Specialty Start Date End Date Miah Haney MD PCP - General 12/31/12 Miah Haney MD PCP - General 10/13/12 Miah Haney MD PCP - General 09/15/10 documented as of this encounter
--- OUTSIDE RECORDS SUMMARY | 2024-04-11 21:59 | XMS_ITS | Encounter Summary ---
Author Organization [facility] Address [facility] [address] [address] Phone Care Team Providers Care De Alcoholizer Name Role Phone Karrie Tompkins MD Primary Care Provider [phone] Reason for Visit * Reason Comments Med Refill Encounter Details Date Type Department Care Team (Late st Contact Info) Description 02/12/2022 Refill [facility] Nephrology and Hypertension [address] [place] [address], [address] [place] [address] Aubrey Reyna MD [address] [facility], [address] [place] [address] Social History Tobacco Use Types Packs/Day Years [...] on filedocumented in this encounter Care Teams De Alcoholizer Relationship Specialty Start Date End Date Karrie Tompkins MD [address] [place] [address] [place] [phone] PCP - General 09/07/18 documented as of this encounter
--- OUTSIDE RECORDS SUMMARY | 2024-04-11 21:59 | XMS_ITS | Encounter Summary ---
Author Organization [facility] Address [facility]6 [facility]. [place], [place] [address] [place] [address] Care Team Providers Care Television Host Name Role Phone Miah Montiel MD Primary Care Provider Unavailable Miah Montiel MD Primary Care Provider Unavailable Miah Montiel MD Primary Care Provider Unavailable Encounter Details Date Type Department Care Team (Late st Contact Info) Description 12/09/2007 Abstract [facility] [place] [address] Miah Montiel MD Social History Tobacco Use [...] on filedocumented in this encounter Care Teams Television Host Relationship Specialty Start Date End Date Miah Montiel MD PCP - General 12/31/12 Miah Montiel MD PCP - General 10/13/12 Miah Montiel MD PCP - General 09/15/10 documented as of this encounter
--- OUTSIDE RECORDS SUMMARY | 2024-04-11 21:59 | XMS_ITS | Encounter Summary ---
Author Organization [facility] Address [facility]6 [place] [address] [place] [address] Care Team Providers Care Handbag Finisher Name Role Phone Md Generic Willa HANEY Primary Care Provider Unavailable Miah Haney MD Primary Care Provider Unavailable Md Generic Willa HANEY Primary Care Provider Unavailable Encounter Details Date Type Department Care Team (Late st Contact Info) Description 09/11/2008 Abstract [facility] [place] [address] Adi Vieira MD [address] [place] [address] Social History Tobacco Use Types Packs/Day Years [...] on filedocumented in this encounter Care Teams Handbag Finisher Relationship Specialty Start Date End Date Miah Haney MD PCP - General 12/31/12 Miah Haney MD PCP - General 10/13/12 Miah Haney MD PCP - General 09/15/10 documented as of this encounter
--- OUTSIDE RECORDS SUMMARY | 2024-04-11 21:59 | XMS_ITS | Encounter Summary ---
Author Organization [facility] Address [facility]6 [facility]. [place], [place] [address] [place] [address] Care Team Providers Care Rn Practitioner Name Role Phone Miah Montiel MD Primary Care Provider Unavailable Encounter Details Date Type Department Care Team (Late st Contact Info) Description 12/31/2012 Abstract [facility] [place] [address] Adi Vieira MD [address] [place] [address] Social History Tobacco Use Types Packs/Day Years [...] examination documented in this encounter Care Teams Rn Practitioner Relationship Specialty Start Date End Date Miah Montiel MD PCP - General 12/31/12 documented as of this encounter
--- OUTSIDE RECORDS SUMMARY | 2024-04-11 21:59 | XMS_ITS | Encounter Summary ---
Author Organization [facility] Address [facility]6 [facility] [place] [address] [place] [address] Care Team Providers Care It Help Desk Associate Name Role Phone Md Generic Willa HANEY Primary Care Provider Unavailable Miah Haney MD Primary Care Provider Unavailable Md Generic Willa HANEY Primary Care Provider Unavailable Encounter Details Date Type Department Care Team (Late st Contact Info) Description 10/15/2008 Abstract [facility] [place] [address] Adi Vieira MD [address] [place] [address] Social History Tobacco Use Types Packs/Day Years [...] on filedocumented in this encounter Care Teams It Help Desk Associate Relationship Specialty Start Date End Date Miah Haney MD PCP - General 12/31/12 Miah Haney MD PCP - General 10/13/12 Miah Haney MD PCP - General 09/15/10 documented as of this encounter
--- OUTSIDE RECORDS SUMMARY | 2024-04-11 21:59 | XMS_ITS | Encounter Summary ---
Author Organization [facility] Address [address], [place] [address] Phone Care Team Providers Care Brake Specialist Name Role Phone Karrie Tompkins MD Primary Care Provider [phone] Encounter Details Date Type Department Care Team (Latest Contact Info) Description 12/27/2021 3:00 PM CDT Office Visit [facility] Nephrology and Hypertension [address] [place] [address], [address] [place] [address] Aubrey Reyna MD [address] [facility], [address] [place] [address] Chronic kidney disease stage 4 (CMS-HCC); Diabetes [...] , Rfl: ??? Lancets (OneTouch Delica Plus [id number]) [facility], , Disp: , Rfl: ??? latanoprost [...] ASSESSMENT 1. Chronic kidney disease stage 4 ([facility]-H[facility]) 2. Diabetes mellitus with renal manifestations ([facility]-HCC) 3. Benign hypertension with chronic kidney disease [...] Lab Routine Chronic kidney disease stage 4 ([facility]-HCC) Diabetes mellitus with renal manifestations ([facility]-HCC) Benign hypertension with chronic kidney disease Secondary hyperparathyroidism ([facility]) Vitamin D deficiency, not otherwise specified [...] specified documented in this encounter Care Teams Brake Specialist Relationship Specialty Start Date End Date Karrie Tompkins MD [address] [place] [phone] PCP - General 09/07/18 documented as of this encounter
--- OUTSIDE RECORDS SUMMARY | 2024-04-11 21:59 | XMS_ITS | Encounter Summary ---
Author Organization [facility] Address [facility]6 [facility] [place] [address] [place] [address] Care Team Providers Care Navy Material Inspector Name Role Phone Md Generic Willa HANEY Primary Care Provider Unavailable Miah Haney MD Primary Care Provider Unavailable Md Generic Willa HANEY Primary Care Provider Unavailable Encounter Details Date Type Department Care Team (Late st Contact Info) Description 09/10/2008 Abstract [facility] [place] [address] Adi Vieira MD [address] [place] [address] Social History Tobacco Use Types Packs/Day Years [...] on filedocumented in this encounter Care Teams Navy Material Inspector Relationship Specialty Start Date End Date Miah Haney MD PCP - General 12/31/12 Miah Haney MD PCP - General 10/13/12 Miah Haney MD PCP - General 09/15/10 documented as of this encounter
--- OUTSIDE RECORDS SUMMARY | 2024-04-11 21:59 | XMS_ITS | Clinical Summary ---
Author Organization [facility] Address [facility]6 [facility] [place] [address] [place] [address] Care Team Providers Care Broadcast News Producer Name Role Phone None, Provider Primary Care [...] Comments Blood Pressure 102/68 05/27/2022 1:18 PM DIRECTOR RIVER RESTORATION Pulse 70 05/27/2022 1:18 PM DIRECTOR RIVER RESTORATION Temperature 36.8 ??C (98.3 ??F) 05/27/2022 1:18 PM CS T Respiratory Rate 18 05/27/2022 1:18 PM DIRECTOR RIVER RESTORATION Oxygen Saturation 100% 05/27/2022 1:18 PM DIRECTOR RIVER RESTORATION Inhaled Oxygen Concentration - - Weight 64.7 kg (142 lb 10.2 oz) 05/27/2022 1:18 PM DIRECTOR RIVER RESTORATION Height 154.9 cm (5' 1 ) 05/27/2022 1:18 PM DIRECTOR RIVER RESTORATION Body Mass Index 26.95 05/27/2022 1:18 PM DIRECTOR RIVER RESTORATION Plan of Treatment Health Maintenance Due Date [...] to complete this topic Insurance Care Teams Broadcast News Producer Relationship Specialty Start Date End Date None, Provider, PCP - General UNKNOWN PHYSICIAN SPECIALTY 05/27/22
--- OUTSIDE RECORDS SUMMARY | 2024-04-11 21:59 | XMS_ITS | Encounter Summary ---
Author Organization [facility] Address [facility]6 [place] [address] [place] [address] Care Team Providers Care Medical Collections Representative Name Role Phone Md Generic Willa HANEY Primary Care Provider Unavailable Miah Haney MD Primary Care Provider Unavailable Md Generic Willa HANEY Primary Care Provider Unavailable Encounter Details Date Type Department Care Team ([facility] st Contact Info) Description 09/10/2008 Abstract [facility] [address] [place] [address] Aldo Joy MD [address] [facility] [address] [address] Social History Tobacco Use Types Packs/Day Years [...] on filedocumented in this encounter Care Teams Medical Collections Representative Relationship Specialty Start Date End Date Miah Haney MD PCP - General 12/31/12 Miah Haney MD PCP - General 10/13/12 Miah Haney MD PCP - General 09/15/10 documented as of this encounter
--- OUTSIDE RECORDS SUMMARY | 2024-04-11 21:59 | XMS_ITS | Encounter Summary ---
Author Organization [facility] Address [facility]ly [facility]6 [facility] [place] [address] [place] [address] Care Team Providers Care Remote Sensing Specialist Name Role Phone Md Generic Willa HANEY Primary Care Provider Unavailable Miah Haney MD Primary Care Provider Unavailable Md Generic Conversion Primary Care Provider Unavailable Encounter Details Date Type Department Care Team (Late st Contact Info) Description 01/08/2008 Abstract [facility] Cardiology EKG [address] [facility] [place] [address] Petar Barber MD [facility] [address] [address] Social History Tobacco Use Types Packs/Day Years [...] on filedocumented in this encounter Care Teams Remote Sensing Specialist Relationship Specialty Start Date End Date Miah Haney MD PCP - General 12/31/12 Miah Haney MD PCP - General 10/13/12 Miah Haney MD PCP - General 09/15/10 documented as of this encounter
--- OUTSIDE RECORDS SUMMARY | 2024-04-11 21:59 | XMS_ITS | Encounter Summary ---
Author Organization [facility] Address [facility] [facility]. [place], [place] [address] [place] [address] Care Team Providers Care Cost Recovery Technician Name Role Phone Miah Montiel MD Primary Care Provider Unavailable Miah Montiel MD Primary Care Provider Unavailable Miah Montiel MD Primary Care Provider Unavailable Encounter Details Date Type Department Care Team (Late st Contact Info) Description 05/28/1990 Abstract [place] [address] Miah Montiel MD Social History Tobacco Use [...] on filedocumented in this encounter Care Teams Cost Recovery Technician Relationship Specialty Start Date End Date Miah Montiel MD PCP - General 12/31/12 Miah Montiel MD PCP - General 10/13/12 Miah Montiel MD PCP - General 09/15/10 documented as of this encounter
--- OUTSIDE RECORDS SUMMARY | 2024-04-11 21:59 | XMS_ITS | Encounter Summary ---
Author Organization [facility] Address [facility]6 [facility] [place] [address] [place] [address] Care Team Providers Care Flagstone Layer Name Role Phone Miah Montiel MD Primary Care Provider Unavailable Miah Montiel MD Primary Care Provider Unavailable Encounter Details Date Type Department Care Team (Late st Contact Info) Description 10/13/[address] [facility] [place] [address] Adi Vieira MD [address] [place] [address] Social History Tobacco Use Types Packs/Day Years [...] examination documented in this encounter Care Teams Flagstone Layer Relationship Specialty Start Date End Date Miah Montiel MD PCP - General 12/31/12 Miah Montiel MD PCP - General 10/13/12 documented as of this encounter
--- OUTSIDE RECORDS SUMMARY | 2024-04-11 22:00 | XMS_ITS | Encounter Summary ---
Author Organization [facility] Address [address] [place] [address] Phone Care Team Providers Care Regional Refrigerated Cdl Truck Driver Name Role Phone Karrie Tompkins MD Primary Care Provider [phone] Encounter Details Date Type Department Care Team (Late st Contact Info) Description 10/08/2019 Orders Only [facility] Nephrology and Hypertension [facility]4 [facility], [address] [address] Aubrey Reyna MD [address] [facility] [facility], SUITE [facility] [place] [address] Chronic kidney disease stage 3 (CMS-HCC) (Primary [...] Primary documented in this encounter Care Teams Regional Refrigerated Cdl Truck Driver Relationship Specialty Start Date End Date Karrie Tompkins MD [address] [place] [address] [place] [id number] PCP - General 09/07/18 documented as of this encounter
--- OUTSIDE RECORDS SUMMARY | 2024-04-11 22:00 | XMS_ITS | Encounter Summary ---
Author Organization [facility] Address [address] [place] [address] Phone Care Team Providers Care Order Dispatcher Chief Name Role Phone Karrie Tompkins MD Primary Care Provider [phone] Encounter Details Date Type Department Care Team (Late st Contact Info) Description 10/12/2019 1:30 PM CDT Office Visit [facility] Nephrology and Hypertension [address] [place] [address], [address] [place] [address] Aubrey Reyna MD [address] [facility], [address] [place] [address] Chronic kidney disease stage 3 (CMS-HCC); Diabetes [...] PLAN 1. Chronic kidney disease stage 3 ([facility]) 2. Diabetes mellitus with renal manifestations ([facility]) 3. Hypertensive renal disease Kandace has chronic [...] stage 3 Diabetes mellitus with renal manifestations ([facility]) Hypertensive renal disease QUESTASS[facility]ED? ? 25-HYDROXY VITAMIN [...] D (D2, D3) (01/12/2020 7:40 AM CDT) [facility] 25-Hydroxyvitamin D2+25-Hydroxyvitamin D3, Serum/Plasma 69 30 [...] 2011;96(7):1911-30. ??For additional information, please refer to ??http://education.Cylance/faq/INV645 Cholecalciferol (Vitamin D3), Serum/Plasma 69 ng/mL [facility] ([facility]) Comment:Reference range: Not established Calciferol (Vitamin D2), Serum/Plasma <4 ng/mL [facility] ([facility]) Comment: (Note) Reference range: Not established This test was developed and its analytical performance characteristics have been determined by [employer]. It has not been cleared or approved by the US Food and Drug Administration. This assay has been validated pursuant to the CLIA regulation and is used for Clinical purposes. [facility] [address] [place] [address],[address] [place] [address] Davis Sosa MD See Note 1 Note 1 For additional information, please refer to http://ZangZing.Cylance/faq/FYK407 (This link is being provided for informational/ educational purposes only.) Blood (Blood, Venous) 01/12/2020 7:40 AM CDT 01/12/2020 7:41 AM CDT Narrative [facility] ([facility]) - 01/14/2020 1:20 PM CDT FASTING:YES FASTING: YES Resulting Agency Comment Performing Organization Information: ?Site ID: [id number] ?Name: [facility] ?Address: [address] [place] [address], [address] [place] [id number] ?Director: Iban Hoffman Aubrey Reyna MD LAB BLOOD ORDERABLES [facility] ([facility]) * (ABNORMAL) PTH Intact w/o Calcium, Serum (01/12/2020 7:40 AM CDT) PTH, Intact, Serum/Plasma 95(H) 14 - 64 pg/mL [facility] ([facility]) [...] AM CDT 01/12/2020 7:41 AM CDT Narrative [facility] ([facility]) - 01/14/2020 1:20 PM CDT FASTING:YES FASTING: YES Resulting Agency Comment Performing Organization Information: ?Site ID: [id number] ?Name: [facility] ?Address: [address] [place] [address] ?Director: Hakeem Jenkins D.O., MPH Aubrey Reyna MD LAB BLOOD ORDERABLES [facility] (ST) * Total Protein w/ Creatinine, Urine, Random (01/12/2020 7:40 AM CDT) Creatinine, Urine 85 20 - 275 mg/dL [facility] ([facility]) Protein/Creatin ine, Urine 141 21 - 161 mg/g creat [facility] ([facility]) Protein/Creatin ine, Urine 0.141 0.021 - 0.161 mg/mg creat [facility] ([facility]) Protein, Urine 12 5 - 24 mg/dL [facility] ([facility]) 01/12/2020 7:40 AM CDT 01/12/2020 7:41 AM CDT Narrative [facility] ([facility]) - 01/14/2020 1:20 PM CDT FASTING:YES FASTING: YES Resulting Agency Comment Performing Organization Information: ?Site ID: [id number] ?Name: [email or web address] ?Address: [facility] [place] [address] ?Director: Hakeem Jenkins D.O., MPH Aubrey Reyna MD LAB URINE ORDERABLES [facility] (ST) * (ABNORMAL) Renal Function Panel (RFP) (01/12/2020 7:40 AM CDT) Glucose, Serum/Plasma 182(H) 65 - 99 mg/dL [facility] (ST) Comment: ? Fasting reference interval For someone without known diabetes, a glucose value >125 mg/dL indicates that they may have diabetes and this should be confirmed with a follow-up test. Urea nitrogen, Serum/Plasma (BUN) 28(H) 7 - 25 mg/dL [facility] ([facility]) Creatinine, Serum/Plasma 1.53(H) 0.50 - 0.99 mg/dL [facility] (ST) Comment: For patients >49 years of age, the reference limit for Creatinine is approximately 13% higher for people identified as -Liberian. eGFR, non 34(L) > OR = 60 mL/min/1. 73m2 [facility] ([facility]) eGFR, 40(L) > OR = 60 mL/min/1. 73m2 [facility] ([facility]) Urea nitrogen/Creatinin e, Serum/Plasma 18 6 - 22 (calc) [facility] ([facility]) Sodium, Serum/Plasma 141 135 - 146 mmol/L [facility] ([facility]) Potassium, Serum/Plasma [...] Albumin, Serum/Plasma 4.0 3.6 - 5.1 g/dL [facility] ([facility]) Blood (Blood, Venous) 01/12/2020 7:40 AM CDT 01/12/2020 7:41 AM CDT Narrative [facility] ([facility]) - 01/14/2020 1:20 PM CDT FASTING:YES FASTING: YES Resulting Agency Comment Performing Organization Information: ?Site ID: [place] ?Name: [facility] ?Address: [facility] [place] [address] ?Director: Hakeem Jenkins D.O., MPH Aubrey Reyna MD LAB BLOOD ORDERABLES [facility] ([facility]) documented in this encounter Visit Diagnoses Diagnosis Chronic kidney disease stage 3 (CMS-HCC) Diabetes mellitus with renal manifestations (CMS-HCC) Hypertensive renal disease documented in this encounter Care Teams Order Dispatcher Chief Relationship Specialty Start Date End Date Karrie Tompkins MD [address] [place] [address] [place] [id number] PCP - General 09/07/18 documented as of this encounter
--- OUTSIDE RECORDS SUMMARY | 2024-04-11 22:00 | XMS_ITS | Encounter Summary ---
Author Organization [facility] Address [address], [place] [address] Phone Care Team Providers Care Pole Peeling Machine Operator Helper Name Role Phone Karrie Tompkins MD Primary Care Provider [phone] Encounter Details Date Type Department Care Team (Late st Contact Info) Description 06/10/2019 2:15 PM CDT Office Visit [facility] Nephrology and Hypertension [address] [place] [address], [address] [place] [address] Aubrey Reyna MD [address] [facility], [address] [place] [address] Chronic kidney disease stage 3 (CMS-HCC); Diabetes [...] Creatinine, Urine 29 20 - 275 mg/dL [facility] ([facility]) Protein/Creatin ine, Urine NOTE 21 - 161 mg/g creat [facility] ([facility]) Comment: THE PROTEIN VALUE IS LESS THAN 4 MG/DL THEREFORE WE ARE UNABLE TO CALCULATE EXCRETION AND/OR CREATININE RATIO. ?? Protein/Creatin ine, Urine NOTE 0.021 - 0.161 mg/mg creat [facility] ([facility]) Protein, Urine <4(L) 5 - 24 mg/dL [facility] ([facility]) Comment: Verified by repeat analysis. 10/05/2019 12:5 2 PM CDT 10/05/2019 12:53 PM CDT Narrative [facility] ([facility]) - 10/06/2019 3:01 PM CDT SPLIT 07/31/2019 FROM [id number] FASTING:NO FASTING: NO Resulting Agency Comment Performing Organization Information: ?Site ID: [place] ?Name: [facility] ?Address: [address] [place] [id number] ?Director: Hakeem Jenkins D.O., MPH Aubrey Reyna MD LAB URINE ORDERABLES [facility] (ST) * (ABNORMAL) Renal Function Panel (RFP) (07/31/2019 9:05 AM CDT) Glucose, Serum/Plasma 149(H) 65 - 99 mg/dL [facility] ([facility]) Comment: ? Fasting reference interval For someone without known diabetes, a glucose value >125 mg/dL indicates that they may have diabetes and this should be confirmed with a follow-up test. Urea nitrogen, Serum/Plasma (BUN) 38(H) 7 - 25 mg/dL [facility] ([facility]) Creatinine, Serum/Plasma 1.79(H) 0.50 - 0.99 mg/dL [facility] ([facility]) Comment: For patients >49 years of age, the reference limit for Creatinine is approximately 13% higher for people identified as -Colombian. eGFR, non 28(L) > OR = 60 mL/min/1. 73m2 [facility] ([facility]) eGFR, 33(L) > OR = 60 mL/min/1. 73m2 [facility] [place] (ST[facility]) Urea nitrogen/Creatinin e, Serum/Plasma 21 6 - 22 (calc) [facility] ([facility]) Sodium, Serum/Plasma 138 135 - 146 mmol/L [facility] ([facility]) Potassium, Serum/Plasma 4.7 3.5 - 5.3 mmol/L [facility] ([facility]) Chloride, Serum/Plasma 103 98 - 110 mmol/L [facility] ([facility]) Carbon dioxide CO2), total, Serum/Plasma 26 20 - 32 mmol/L [facility] ([facility]) Calcium, Serum/Plasma 9.8 8.6 - 10.4 mg/dL [facility] [place] ([facility]) Phosphate, Serum/Plasma 4.3 2.1 - 4.3 mg/dL [facility] ([facility]) Albumin, Serum/Plasma 4.0 3.6 - 5.1 g/dL [facility] [place] (ST) Blood (Blood, Venous) 07/31/2019 9:05 AM CDT 07/31/2019 9:06 AM CDT Narrative [facility] ([facility]) - 08/01/2019 2:15 AM CDT FASTING:YES COLLECTION REQUIREMENTS NOT MET. PATIENT ADVISED TO RETURN. FASTING: YES Resulting Agency Comment Performing Organization Information: ?Site ID: [place] ?Name: [email or web address] ?Address: [address] [address] ?Director: Hakeem Jenkins D.O., MPH Aubrey Reyna MD LAB BLOOD ORDERABLES [facility] ([facility]) documented in this encounter Visit Diagnoses Diagnosis Chronic kidney disease stage 3 (CMS-HCC) Diabetes mellitus with renal manifestations (CMS-HCC) Hypertensive renal disease documented in this encounter Care Teams Pole Peeling Machine Operator Helper Relationship Specialty Start Date End Date Karrie Tompkins MD [address] [place] [address] [place] [address] PCP - General 09/07/18 documented as of this encounter
--- OUTSIDE RECORDS SUMMARY | 2024-04-11 22:00 | XMS_ITS | Clinical Summary ---
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 Gender Identity Not on file Sexual Orientation [...] from Last 3 Months Insurance [employer] [facility] MEDIC[facility] Address: [facility] [address] [place] [address] [facility] MDCR HMO REF [facility] MEDICARE Address: [address] [address] [place] [address] [facility] Address: [address] [address] [place] [address] [facility] Address: [address] [address] [place] [address] Care Teams Design Engineering Manager Relationship Specialty Start Date End Date Farhat Crocker NP [address] [place] [address] PCP - General Family Medicine 01/20/24
--- OUTSIDE RECORDS SUMMARY | 2024-04-11 22:00 | XMS_ITS | Encounter Summary ---
Author Organization [facility] Address [address], [place] [address] Phone Care Team Providers Care Behavioral Health Aide Name Role Phone Karrie Tompkins MD Primary Care Provider [phone] Encounter Details Date Type Department Care Team (Late st Contact Info) Description 06/22/2020 2:00 PM CDT Office Visit [facility] Nephrology and Hypertension [address] [place] [address], [address] [place] [address] Aubrey Reyna MD [address] [facility], [address] [place] [address] Chronic kidney disease stage 4 (CMS-HCC); Diabetes [...] PLAN 1. Chronic kidney disease stage 4 ([facility]) 2. Diabetes mellitus with renal manifestations ([facility]) 3. Benign hypertension with chronic kidney disease [...] Glucose, Serum/Plasma 148(H) 65 - 139 mg/dL [facility] ([facility]) Comment: ? Non-fasting reference interval Urea nitrogen, Serum/Plasma (BUN) 29(H) 7 - 25 mg/dL [facility] ([facility]) Creatinine, Serum/Plasma 1.80(H) 0.60 - 0.93 mg/dL [facility] ([facility]) Comment: For patients >49 years of age, the reference limit for Creatinine is approximately 13% higher for people identified as -Salvadorean. eGFR, non 28(L) > OR = 60 [...] Performing Organization Information: ?Site ID: [place] ?Name: [facility] ?Address: [address] [place] [address] ?Director: Hakeem Jenkins D.O., MPH Aubrey Reyna MD LAB BLOOD ORDERABLES [facility] ([facility]) documented in this encounter Visit Diagnoses Diagnosis Chronic kidney disease stage 4 (CMS-HCC) Diabetes mellitus with renal manifestations (CMS-HCC) Benign hypertension with chronic kidney disease documented in this encounter Care Teams Behavioral Health Aide Relationship Specialty Start Date End Date Karrie Tompkins MD [address] [place] [id number] PCP - General 09/07/18 documented as of this encounter
--- OUTSIDE RECORDS SUMMARY | 2024-04-11 22:00 | XMS_ITS | Encounter Summary ---
Author Organization [facility] Molly [facility]ions Address [address], [place] [address] Phone Care Team Providers Care Snack Foods Mixer Operator Name Role Phone Karrie Tompkins MD Primary Care Provider [phone] Encounter Details Date Type Department Care Team (Late st Contact Info) Description 11/23/2020 1:45 PM CDT Office Visit [facility] Nephrology and Hypertension [address] [place] [address], [address] [place] [address] Aubrey Reyna MD [address] [facility], [address] [place] [address] Chronic kidney disease stage 4 (CMS-HCC); Diabetes [...] , Rfl: ??? Lancets (OneTouch Delica Plus [id number]) [facility], , Disp: , Rfl: ??? latanoprost (XALATAN) [...] ASSESSMENT 1. Chronic kidney disease stage 4 ([facility]) 2. Diabetes mellitus with renal manifestations ([facility]) 3. Benign hypertension with chronic [...] CREATININE, URINE, RANDOM Routine 02/28/2021 8:14 AM CHECKERING MACHINE OPERATOR Chronic kidney disease stage 4 (CMS-HCC) Diabetes mellitus with renal manifestations (CMS-HCC) Benign hypertension with chronic kidney disease RENAL FUNCTION PANEL (RFP) Routine 02/28/2021 8:14 AM CHECKERING MACHINE OPERATOR Chronic kidney disease stage 4 (CMS-HCC) Diabetes mellitus with renal manifestations (CMS-HCC) Benign hypertension with chronic kidney disease documented in this encounter Results * (ABNORMAL) Total Protein w/ Creatinine, Urine, Random (02/28/2021 8:14 AM CHECKERING MACHINE OPERATOR) Creatinine, Urine 111 20 - 275 mg/dL [facility] ([facility]) Protein/Creati nine, Urine 252(H) 21 - 161 mg/g creat [facility] ([facility]) Protein/Creati nine, Urine 0.252(H) 0.021 - 0.161 mg/mg creat [facility] ([facility]) Protein, Urine 28(H) 5 - 24 mg/dL [facility] ([facility]) 02/28/2021 8:14 AM CHECKERING MACHINE OPERATOR 02/28/2021 8:15 AM CHECKERING MACHINE OPERATOR Narrative [facility] ([facility]) - 03/01/2021 12:03 PM CHECKERING MACHINE OPERATOR FASTING:NO FASTING: NO Resulting Agency Comment Performing Organization Information: ?Site ID: [place] ?Name: [facility] ?Address: [address] [address] ?Director: Hakeem Jenkins D.O., MPH Aubrey Reyna MD LAB URINE ORDERABLES [facility] (ST) * (ABNORMAL) Renal Function Panel (RFP) (02/28/2021 8:14 AM CHECKERING MACHINE OPERATOR) Glucose, Serum/Plasma 146(H) 65 - 139 mg/dL [facility] [place] ([facility]) Comment: ? Non-fasting reference interval Urea nitrogen, Serum/Plasma (BUN) 24 7 - 25 mg/dL [facility] ([facility]) Creatinine, Serum/Plasma 1.55(H) 0.60 - 0.93 mg/dL [facility] [place] ([facility]) Comment: For patients >49 years of age, the reference limit for Creatinine is approximately 13% higher for people identified as -Belarusian. eGFR, non 33(L) > OR = 60 mL/min/1. 73m2 [facility]. [facility] [place] ([facility]) eGFR, 39(L) > OR = 60 mL/min/1. 73m2 [facility] (STL) Urea nitrogen/Creatinin e, Serum/Plasma 15 6 - 22 (calc) [facility] [place] ([facility]) Sodium, Serum/Plasma 136 135 - 146 mmol/L [facility] [place] ([facility]) Potassium, Serum/Plasma 4.6 3.5 - 5.3 mmol/L [facility] [place] (ST[facility]) Chloride, Serum/Plasma 102 98 - 110 mmol/L [facility] [place] ([facility]) Carbon dioxide CO2), total, Serum/Plasma 26 20 - 32 mmol/L [facility] [place] ([facility]) Calcium, Serum/Plasma 9.4 8.6 - 10.4 mg/dL [facility] ([facility]) Phosphate, Serum/Plasma 4.0 2.1 - 4.3 mg/dL [facility] ([facility]) Albumin, Serum/Plasma 4.1 3.6 - 5.1 g/dL [facility] ([facility]) Blood (Blood, Venous) 02/28/2021 8:14 AM CHECKERING MACHINE OPERATOR 02/28/2021 8:15 AM CHECKERING MACHINE OPERATOR Narrative [facility] ([facility]) - 03/01/2021 12:03 PM CHECKERING MACHINE OPERATOR FASTING:NO FASTING: NO Resulting Agency Comment Performing Organization Information: ?Site ID: [place] ?Name: [facility] ?Address: [facility] [place] [address] ?Director: Hakeem Jenkins D.O., MPH Aubrey Reyna MD LAB BLOOD ORDERABLES [facility] ([facility]) documented in this encounter Visit Diagnoses Diagnosis Chronic kidney disease stage 4 (CMS-HCC) Diabetes mellitus with renal manifestations (CMS-HCC) Benign hypertension with chronic kidney disease documented in this encounter Care Teams Snack Foods Mixer Operator Relationship Specialty Start Date End Date Karrie Tompkins MD [address] [place] [address] PCP - General 09/07/18 documented as of this encounter
--- OUTSIDE RECORDS SUMMARY | 2024-04-11 22:00 | XMS_ITS | Encounter Summary ---
Author Organization [facility] Physician Molly utions Address [address] [place] [address] Phone Care Team Providers Care Hand Zipper Trimmer Name Role Phone Karrie Tompkins MD Primary Care Provider [phone] Encounter Details Date Type Department Care Team (Late st Contact Info) Description 02/22/2020 1:15 PM BUS GREASER Office Visit [facility] Nephrology and Hypertension [address] [place] [address], [address] [place] [address] Aubrey Reyna MD [address] [facility], [address] [place] [address] Chronic kidney disease, stage 3b; Diabetes mellitus with renal manifestations ([facility]-H[facility]); Benign hypertension with chronic kidney disease Social [...] Comments Blood Pressure 136/76 02/22/2020 1:22 PM BUS GREASER Pulse - - Temperature 36.3 ??C (97.4 ??F) 02/22/2020 1:22 PM CS T Respiratory Rate 18 02/22/2020 1:22 PM BUS GREASER Oxygen Saturation - - Inhaled Oxygen Concentration - - Weight 76.7 kg (169 lb) 02/22/2020 1:22 PM BUS GREASER Height 154.9 cm (5' 1 ) 02/22/2020 1:22 PM BUS GREASER Body Mass Index 31.93 02/22/2020 1:22 PM BUS GREASER documented in this encounter Progress Notes * [...] 3b 2. Diabetes mellitus with renal manifestations ([facility]) 3. Benign hypertension with chronic [...] CREATININE, URINE, RANDOM Routine 05/24/2020 8:54 AM BUS GREASER Chronic kidney disease, stage 3b Diabetes mellitus with renal manifestations (CMS-HCC) Benign hypertension with chronic kidney disease RENAL FUNCTION PANEL (RFP) Routine 05/24/2020 8:54 AM BUS GREASER Chronic kidney disease, stage 3b Diabetes mellitus with renal manifestations (CMS-HCC) Benign hypertension with chronic kidney disease documented in this encounter Results * Total Protein w/ Creatinine, Urine, Random (05/24/2020 8:54 AM BUS GREASER) Creatinine, Urine 107 20 - 275 mg/dL [facility] ([facility]) Protein/Creatin ine, Urine 84 21 - 161 mg/g creat [facility] ([facility]) Protein/Creatin ine, Urine 0.084 0.021 - 0.161 mg/mg creat [facility] ([facility]) Protein, Urine 9 5 - 24 mg/dL [facility] ([facility]) 05/24/2020 8:54 AM BUS GREASER 05/24/2020 8:55 AM BUS GREASER Narrative Resulting Agency Comment Performing Organization Information: ?Site ID: [place] ?Name: [facility] ?Address: [id number] [place] [address] [place] [address] ?Director: Hakeem Jenkins D.O., MPH Aubrey Reyna MD LAB URINE ORDERABLES [facility] ([facility]) * (ABNORMAL) Renal Function Panel (RFP) (05/24/2020 8:54 AM BUS GREASER) Glucose, Serum/Plasma 115(H) 65 - 99 mg/dL [facility] ([facility]) Comment: ? Fasting reference interval For someone without known diabetes, a glucose value between 100 and 125 mg/dL is consistent with prediabetes and should be confirmed with a follow-up test. Urea nitrogen, Serum/Plasma (BUN) 39(H) 7 - 25 mg/dL [facility] [place] ([facility]) Creatinine, Serum/Plasma 2.20(H) 0.60 - 0.93 mg/dL [facility] [place] ([facility]) Comment: For patients >49 years of age, the reference limit for Creatinine is approximately 13% higher for people identified as -Monegasque. eGFR, non 22(L) > OR = 60 mL/min/1. 73m2 [facility] [place] ([facility]) eGFR, 25(L) > OR = 60 mL/min/1. 73m2 [facility] [place] ([facility]) Urea nitrogen/Creatinin e, Serum/Plasma 18 6 - 22 (calc) [facility] [place] ([facility]) Sodium, Serum/Plasma 133(L) 135 - 146 mmol/L [facility] [place] ([facility]) Potassium, Serum/Plasma 5.3 3.5 - 5.3 mmol/L [facility] [place] ([facility]) Chloride, Serum/Plasma 102 98 - 110 mmol/L [facility] [place] ([facility]) Carbon dioxide CO2), total, Serum/Plasma 21 20 - 32 mmol/L [facility] [place] ([facility]) Calcium, Serum/Plasma 9.1 8.6 - 10.4 mg/dL [facility] [place] ([facility]) Phosphate, Serum/Plasma 4.1 2.1 - 4.3 mg/dL [facility] [place] ([facility]) Albumin, Serum/Plasma 3.9 3.6 - 5.1 g/dL [facility] [place] ([facility]) Blood (Blood, Venous) 05/24/2020 8:54 AM BUS GREASER 05/24/2020 8:55 AM BUS GREASER Narrative Resulting Agency Comment Performing Organization Information: ?Site ID: [place] ?Name: [facility] ?Address: [address] [address] ?Director: Hakeem Jenkins D.O., MPH Aubrey Reyna MD LAB BLOOD ORDERABLES [facility] ([facility]) documented in this encounter Visit Diagnoses Diagnosis Chronic kidney disease, stage 3b Diabetes mellitus with renal manifestations (CMS-HCC) Benign hypertension with chronic kidney disease documented in this encounter Care Teams Hand Zipper Trimmer Relationship Specialty Start Date End Date Karrie Tompkins MD [address] [place] [address] [place] [address] PCP - General 09/07/18 documented as of this encounter
--- OUTSIDE RECORDS SUMMARY | 2024-04-11 22:00 | XMS_ITS | Encounter Summary ---
Author Organization Amisha Physician Molly uticharlene Address [address] [place] [address] Phone Care Team Providers Care Svp Operations Name Role Phone Karrie Tompkins MD Primary Care Provider [phone] Encounter Details Date Type Department Care Team (Late st Contact Info) Description 09/01/2020 Orders Only [facility] Nephrology and Hypertension [facility], [address] [address] Aubrey Reyna MD [address] [facility], SUITE [facility] [place] [address] Chronic kidney disease stage 4 (CMS-HCC) (Primary [...] Creatinine, Urine 31 20 - 275 mg/dL [facility] ([facility]) Protein/Creatin ine, Urine NOTE 21 - 161 mg/g creat [facility] ([facility]) Comment: [...] AM CDT 11/10/2020 7:32 AM CDT Narrative [facility] ([facility]) - 11/14/2020 1:05 PM CDT FASTING:YES FASTING: YES Resulting Agency Comment Performing Organization Information: ?Site ID: [place] ?Name: [facility] ?Address: [address] [address] ?Director: Hakeem Jenkins D.O., MPH Aubrey Reyna [...] D, (D2,D3), LC/MS/MS is recommended: order code [id number] (patients >2yrs). See Note 1 Note 1 For additional information, please refer to http://education.[employer]/faq/IJI406 (This link is being provided for informational/ educational purposes only.) 11/10/2020 7:32 AM CDT 11/10/2020 7:32 AM CDT Narrative [facility] ([facility]) - 11/14/2020 1:05 PM CDT FASTING:YES FASTING: YES Resulting Agency Comment Performing Organization Information: ?Site ID: [place] ?Name: [facility] ?Address: [address] [address] ?Director: Hakeem Jenkins D.O., MPH Aubrey Reyna MD LAB BLOOD ORDERABLES [facility] (ST) * (ABNORMAL) PTH Intact w/o Calcium, Serum (11/10/2020 7:32 AM CDT) [facility] PTH, Intact, Serum/Plasma 86(H) 14 - 64 pg/mL [facility] ([facility]) Comment: Interpretive Guide [...] AM CDT 11/10/2020 7:32 AM CDT Narrative [facility] ([facility]) - 11/14/2020 1:05 PM CDT FASTING:YES FASTING: YES Resulting Agency Comment Performing Organization Information: ?Site ID: [place] ?Name: [facility] [place] ?Address: [address] [address] ?Director: Hakeem Jenkins D.O., MPH Aubrey Reyna MD LAB BLOOD ORDERABLES [facility] ([facility]) * (ABNORMAL) Renal Function Panel (RFP) (11/10/2020 7:32 AM CDT) [facility] Glucose, Serum/Plasma 95 65 - 99 mg/dL [facility] ([facility]) Comment: ? Fasting reference interval Urea nitrogen, Serum/Plasma (BUN) 39(H) 7 - 25 mg/dL [facility] ([facility]) Creatinine, Serum/Plasma 1.76(H) 0.60 - 0.93 mg/dL [facility] ([facility]) Comment: For patients >49 years of age, the reference limit for Creatinine is approximately 13% higher for people identified as -Uruguayan. eGFR, non 29(L) > OR = 60 mL/min/1. 73m2 [facility] ([facility]) eGFR, 33(L) > OR = 60 mL/min/1. 73m2 [facility] ([facility]) Urea nitrogen/Creatinin e, Serum/Plasma 22 6 - 22 (calc) [facility] ([facility]) Sodium, Serum/Plasma 133(L) 135 - 146 mmol/L [facility] ([facility]) Potassium, Serum/Plasma 5.3 3.5 - 5.3 mmol/L [facility] ([facility]) Chloride, Serum/Plasma 100 98 - 110 mmol/L [facility] ([facility]) Carbon dioxide CO2), total, Serum/Plasma 24 20 - 32 mmol/L [facility] ([facility]) Calcium, Serum/Plasma 9.3 8.6 - 10.4 mg/dL [facility] ([facility]) Phosphate, Serum/Plasma 5.0(H) 2.1 - 4.3 mg/dL [facility] ([facility]) Albumin, Serum/Plasma 3.9 3.6 - 5.1 g/dL [facility] ([facility]) Blood (Blood, Venous) 11/10/2020 7:32 AM CDT 11/10/2020 7:32 AM CDT Narrative [facility] ([facility]) - 11/14/2020 1:05 PM CDT FASTING:YES FASTING: YES Resulting Agency Comment Performing Organization Information: ?Site ID: [place] ?Name: [facility] ?Address: [address] [address] ?Director: Hakeem Jenkins D.O., MPH Aubrey Reyna MD LAB BLOOD ORDERABLES [facility] ([facility]) documented in this encounter Visit Diagnoses Diagnosis Chronic kidney disease stage 4 (CMS-HCC)- Primary Diabetes mellitus with renal manifestations (CMS-HCC) Benign hypertension with chronic kidney disease documented in this encounter Care Teams Svp Operations Relationship Specialty Start Date End Date Karrie Tompkins MD [address] [place] [address] [place] [id number] PCP - General 09/07/18 documented as of this encounter
--- OUTSIDE RECORDS SUMMARY | 2024-04-11 22:00 | XMS_ITS | Encounter Summary ---
Author Organization Amisha Physician Molly utions Address [address] [place] [address] Phone Care Team Providers Care Desktop Support Engineer Name Role Phone Karrie Tompkins MD Primary Care Provider [phone] Encounter Details Date Type Department Care Team (Late st Contact Info) Description 09/08/2018 11:00 AM CDT Office Visit [facility] Nephrology and Hypertension [address] [place] [address], [address] [place] [address] Aubrey Reyna MD [address] [facility], [address] [place] [address] Chronic kidney disease stage 3 (CMS-HCC); Diabetes [...] The patient had been following with her filtration supervisor in [place], [place] up until she moved to this [...] diabetes, and age-related change. As her previous filtration supervisor did an extensive work-up and evaluation of [...] kidney disease stage 3 ([facility]) Expected: 09/08/2018, Expires: 09/09/2019 Urinalysis, Routine Lab Routine Chronic kidney disease stage 3 ([facility]) Expected: 09/08/2018, Expires: 09/09/2019 Vitamin D, 25-Hydroxy, Serum Lab Routine Chronic kidney disease stage 3 ([facility]) Expected: 12/29/2018, Expires: 09/09/2019 documented as of this encounter Procedures Procedure Name Priority Date/Time Associated Diagnosis Comments VITAMIN D, 25-OH, TOTAL,IA Routine 09/24/2018 10:25 AM CDT TOTAL PROTEIN W/ CREATININE, URINE, RANDOM Routine 09/24/2018 10:25 AM CDT Chronic kidney disease stage 3 ([facility]-HCC) RENAL FUNCTION PANEL (RFP) Routine 09/24/2018 10:25 AM CDT Chronic kidney disease stage 3 ([facility]) URINALYSIS, ROUTINE Routine 09/24/2018 1 0:25 AM CDT PTH INTACT W/O CALCIUM, SERUM Routine 09/24/2018 10:25 AM CDT Chronic kidney disease stage 3 (CMS-HCC) documented in this encounter Results * (ABNORMAL) Vitamin d, 25-Oh, Total,Ia (09/24/2018 10:25 AM CDT) Pathologist [facility] Calcidiol, Serum/Plasma 27(L) 30 - 100 ng/mL [facility] [place] (ST) Comment: Vitamin D Status ? 25-OH Vitamin D: Deficiency: ?<20 ng/mL Insufficiency: ? 20 - 29 ng/mL Optimal: ? > or = 30 ng/mL For 25-OH Vitamin D testing on patients on D2-supplementation and patients for whom quantitation of D2 and D3 fractions is required, the QuestAssureD(TM) 25-OH VIT D, (D2,D3), LC/MS/MS is recommended: order code 99450 (patients >2yrs). For more information on this test, go to: http://education.Sim[address]/faq/XRX387 (This link is being provided for informational/educational purposes only.) 09/24/2018 10:2 5 AM CDT 09/24/2018 10:26 AM CDT Narrative [facility] ([facility]) - 09/25/2018 2:45 PM CDT FASTING:YES FASTING: YES Resulting Agency Comment Performing Organization Information: ?Site ID: [place] ?Name: [facility] ?Address: [address] [place] [address] [place] [address] ?Director: Hakeem Jenkins D.O., MPH Aubrey Reyna MD LAB BLOOD ORDERABLES [facility] ([facility]) * (ABNORMAL) Urinalysis, Routine (09/24/2018 10:25 AM CDT) Pathologist [facility] Color of Urine YELLOW YELLOW [facility] - [...] AM CDT 09/24/2018 10:26 AM CDT Narrative [facility] ([facility]) - 09/25/2018 2:45 PM CDT FASTING:YES FASTING: YES Resulting Agency Comment Performing Organization Information: ?Site ID: [place] ?Name: [email or web address] ?Address: [facility] [address] [address] ?Director: Hakeem Jenkins D.O., MPH Aubrey Reyna MD LAB URINE ORDERABLES [facility] (ST) * [...] Performing Organization Information: ?Site ID: [place] ?Name: [facility] ?Address: [address] [address] ?Director: Hakeem Jenkins D.O., MPH Aubrey Reyna [...] Agency Comment Performing Organization Information: ?Site ID: [place] ?Name: [facility] ?Address: [address] [address] ?Director: Hakeem Jenkins D.O., MPH Aubrey Reyna MD LAB BLOOD ORDERABLES [facility] ([facility]) * (ABNORMAL) *Renal Function Panel (RFP) (09/24/2018 10:25 AM CDT) Glucose, Serum/Plasma 144(H) 65 - 99 mg/dL [facility] ([facility]) Comment: ? Fasting reference interval For someone without known diabetes, a glucose value >125 mg/dL indicates that they may have diabetes and this should be confirmed with a follow-up test. Urea nitrogen, Serum/Plasma (BUN) 43(H) 7 - 25 mg/dL [facility] ([facility]) Creatinine, Serum/Plasma 1.65(H) 0.50 - 0.99 mg/dL [facility] ([facility]) Comment: For patients >49 years of age, the reference limit for Creatinine is approximately 13% higher for people identified as -Armenian. eGFR, non 32(L) > OR = 60 mL/min/1. 73m2 [facility] ([facility]) eGFR, 37(L) > OR = 60 mL/min/1. 73m2 [facility] ([facility]) Urea nitrogen/Creatinin e, Serum/Plasma 26(H) 6 - 22 (calc) [facility] ([facility]) Sodium, Serum/Plasma 135 135 - 146 mmol/L [facility] ([facility]) Potassium, Serum/Plasma 5.8(H) 3.5 - 5.3 mmol/L [facility] ([facility]) Chloride, [...] Albumin, Serum/Plasma 4.4 3.6 - 5.1 g/dL [facility] ([facility]) Blood (Blood, Venous) 09/24/2018 10:25 AM CDT 09/24/2018 10:26 AM CDT Narrative [facility] ([facility]) - 09/25/2018 2:45 PM CDT FASTING:YES FASTING: YES Resulting Agency Comment Performing Organization Information: ?Site ID: [place] ?Name: [facility] ?Address: [address] [place] [address] ?Director: Hakeem Jenkins D.O., MPH Aubrey Reyna MD LAB BLOOD ORDERABLES [facility] ([facility]) documented in this encounter Visit Diagnoses Diagnosis Chronic kidney disease stage 3 ([facility]) Diabetes mellitus with renal manifestations ([facility]) Hypertensive renal disease documented in this encounter Care Teams Desktop Support Engineer Relationship Specialty Start Date End Date Karrie Tompkins MD [address] [place] [id number] PCP - General 09/07/18 documented as of this encounter
--- OUTSIDE RECORDS SUMMARY | 2024-04-11 22:00 | XMS_ITS | Encounter Summary ---
Author Organization [facility] Address [address] [address] Phone Care Team Providers Care Home Health Care Worker Name Role Phone Karrie Tompkins MD Primary Care Provider [phone] Encounter Details Date Type Department Care Team (Late st Contact Info) Description 04/26/2021 1:15 PM COMPUTER SUPPORT SPECIALIST Office Visit [facility] Nephrology and Hypertension [address] [place] [address], [address] [place] [address] Aubrey Reyna MD [address] [facility], [address] [place] [address] Chronic kidney disease stage 3B (CMS-HCC); Diabetes [...] Comments Blood Pressure 128/64 04/26/2021 1:03 PM COMPUTER SUPPORT SPECIALIST Pulse - - Temperature 35 ??C (95 ??F) 04/26/2021 1:03 PM COMPUTER SUPPORT SPECIALIST Respiratory Rate 18 04/26/2021 1:03 PM COMPUTER SUPPORT SPECIALIST Oxygen Saturation - - Inhaled Oxygen Concentration - - Weight 67.1 kg (148 lb) 04/26/2021 1:03 PM COMPUTER SUPPORT SPECIALIST Height 154.9 cm (5' 1 ) 04/26/2021 1:03 PM COMPUTER SUPPORT SPECIALIST Body Mass Index 27.96 04/26/2021 1:03 PM COMPUTER SUPPORT SPECIALIST documented in this encounter Progress Notes * Aubrey Reyna MD - 04/26/2021 1:15 PM CST FOLLOW-UP OFFICE VISIT Patient: Kandcae Cole Birthdate: 1950 PCP: Karrie Tompkins MD [...] , Rfl: ??? Lancets (OneTouch Delica Plus [id number]) [facility], , Disp: , Rfl: ??? latanoprost (XALATAN) [...] ASSESSMENT 1. Chronic kidney disease stage 3B ([facility]) 2. Diabetes mellitus with renal manifestations ([facility]) 3. Benign hypertension with [...] D3, Serum/Plasma 58 30 - 100 ng/mL [facility] [place] (ST[place]) Comment: (Note) Vitamin [...] 2011;96(7):1911-30. ??For additional information, please refer to ??http://CloudByte/faq/RBJ636 Cholecalciferol (Vitamin D3), Serum/Plasma 58 ng/mL [facility] [place] ([facility]) Comment:Reference range: Not established Calciferol (Vitamin D2), Serum/Plasma <4.0 ng/mL [facility] [place] (ST[place]) Comment: (Note) Reference range: Not established This test was developed and its analytical performance characteristics have been determined by [facility]. It has not been cleared or approved by the US Food and Drug Administration. This assay has been validated pursuant to the CLIA regulation and is used for Clinical purposes. [facility] [address] [address],[address] [facility] [address] Iban Hoffman MD See Note 1 Note 1 For additional information, please refer to http://Cloud[employer]/faq/GZS177 (This link is being provided for informational/ educational purposes only.) Blood (Blood, Venous) 07/26/2021 8:06 AM CDT 07/26/2021 8:06 AM CDT Narrative Resulting Agency Comment Performing Organization Information: ?Site ID: [id number] ?Name: [facility] ?Address: [address] [place] [address], [address] [place] [address] ?Director: Iban Hoffman MD Aubrey Reyna MD LAB BLOOD ORDERABLES [facility] [place] (ST) * (ABNORMAL) PTH Intact w/o Calcium, Serum (07/26/2021 8:06 AM CDT) PTH, Intact, Serum/Plasma 157(H) 16 - 77 pg/mL [facility] [place] ([facility]) Comment: Interpretive Guide ?Intact [...] Performing Organization Information: ?Site ID: BRANT ?Name: [facility] ?Address: [facility] [place] [address] ?Director: Hakeem Jenkins D.O., MPH Aubrey Reyna MD LAB BLOOD ORDERABLES Performing Organization Address [facility] Co de Phone Number [facility] [place] (STL) * (ABNORMAL) Total Protein w/ Creatinine, Urine, Random (07/26/2021 8:06 AM CDT) Creatinine, Urine 123 20 - 275 mg/dL [facility] [place] (STL) Protein/Creati nine, Urine 179(H) 21 - 161 mg/g creat [facility] [place] (ST[place]) Protein/Creati nine, Urine 0.179(H) 0.021 - 0.161 mg/mg creat [facility] [place] (ST[facility]) Protein, Urine 22 5 - 24 mg/dL [facility] [place] (ST[facility]) 07/26/2021 8:06 AM CDT 07/26/2021 8:06 AM CDT Narrative Resulting Agency Comment Performing Organization Information: ?Site ID: BRANT ?Name: [facility] ?Address: [facility] [place] [address] ?Director: Hakeem Jenkins D.O., MPH Aubrey Reyna MD LAB URINE ORDERABLES Performing Organization Address [facility] Co de Phone Number [facility] [place] (ST[place]) * (ABNORMAL) Renal Function Panel (RFP) (07/26/2021 8:06 AM CDT) Glucose, Serum/Plasma 128(H) 65 - 99 mg/dL [facility] [place] ([facility]) Comment: ? Fasting reference interval For someone without known diabetes, a glucose value >125 mg/dL indicates that they may have diabetes and this should be confirmed with a follow-up test. Urea nitrogen, Serum/Plasma (BUN) 19 7 - 25 mg/dL [facility] [place] (ST[place]) Creatinine, Serum/Plasma 1.73(H) 0.60 - 0.93 mg/dL [facility] [place] (ST[place]) Comment: For patients >49 years of age, the reference limit for Creatinine is approximately 13% higher for people identified as -[place]. eGFR, non 29(L) > OR = 60 mL/min/1. 73m2 [facility]. [facility] [place] (ST[place]) eGFR, 34(L) > OR = 60 mL/min/1. 73m2 [facility] [place] (STL) Urea nitrogen/Creatinin e, Serum/Plasma 11 6 - 22 (calc) [facility] [place] (ST[facility]) Sodium, Serum/Plasma 130(L) 135 - 146 mmol/L [facility] [place] (STL) Potassium, Serum/Plasma 4.8 3.5 - 5.3 mmol/L [facility] [place] (STL) Chloride, Serum/Plasma 96(L) 98 - 110 mmol/L [facility] [place] (STL) Carbon dioxide CO2), total, Serum/Plasma 26 20 - 32 mmol/L [facility] [place] (STL) Calcium, Serum/Plasma 8.7 8.6 - 10.4 mg/dL [facility] (STL) Phosphate, Serum/Plasma 4.5(H) 2.1 - 4.3 mg/dL [facility] [place] (STL) Albumin, Serum/Plasma 3.9 3.6 - 5.1 g/dL [facility] [place] (STL) Blood (Blood, Venous) 07/26/2021 8:06 AM CDT 07/26/2021 8:06 AM CDT Narrative Resulting Agency Comment Performing Organization Information: ?Site ID: BRANT ?Name: [facility] ?Address: [facility] [place] [address] ?Director: Hakeem Jenkins D.O., MPH Aubrey Reyna MD LAB BLOOD ORDERABLES [facility] [place] (ST) documented in this encounter Visit Diagnoses Diagnosis Chronic kidney disease stage 3B (CMS-HCC) Diabetes mellitus with renal manifestations (CMS-HCC) Benign hypertension with chronic kidney disease Vitamin D deficiency, not otherwise specified documented in this encounter Care Teams Home Health Care Worker Relationship Specialty Start Date End Date Karrie Tompkins MD [address] [place] [address] [place] [address] PCP - General 09/07/18 documented as of this encounter
--- OUTSIDE RECORDS SUMMARY | 2024-04-11 22:00 | XMS_ITS | Encounter Summary ---
Author Organization [facility] Address [address] [place] [address] Phone Care Team Providers Care Internal Control Specialist Name Role Phone Karrie Tompkins MD Primary Care Provider [phone] Encounter Details Date Type Department Care Team (Late st Contact Info) Description 08/03/2019 Telephone [facility] Nephrology and Hypertension [address] [facility], [address] [place] [address] Aubrey Reyna MD [address] [facility], [address] [place] [address] Social History Tobacco Use Types Packs/Day Years [...] that she got her labs done at [facility] on Sunday 07/30. Thank you documented in this encounter Plan of Treatment Not on file documented as of this encounter Visit Diagnoses Not on filedocumented in this encounter Care Teams Internal Control Specialist Relationship Specialty Start Date End Date Karrie Tompkins MD [address] [place] [address] PCP - General 09/07/18 documented as of this encounter
--- OUTSIDE RECORDS SUMMARY | 2024-04-11 22:00 | XMS_ITS | Continuity of Care Document ---
Author Organization [facility] Address [address] [facility] [address] [place] [address] Phone Care Team Providers Care Furnace Room Supervisor Name Role Phone Daniel Corrales MD Unavailable Unavailable Procedures Procedure Date Special Reports Or Forms Miscellaneous Advance Directives Directive Yes / No Effective Date File Name No Information Encounters Encounter Description Practice Location Reason(s) For Visit Diagnoses Date Provider Providers Copied on Encounter [facility], [address] [place], [place] [address] [address], [place], [place], [id number], tel:[phone] SEC [facility][note 3] No Information [address] [place], [id number], [place]. tel:[phone] [facility], [address] [place], [place] [address] [address], [place], [place], [id number], tel:[phone] [facility][note 3] No Information [address] [employer] [facility] [place], [id number], [place]. tel:[phone] Family History Family Member Type Diagnosis Age [...]
--- OUTSIDE RECORDS SUMMARY | 2024-04-11 22:00 | XMS_ITS | Encounter Summary ---
Author Organization [facility] Address [address] [place] [address] Phone Care Team Providers Care Physical Therapy Teacher Name Role Phone Karrie Tompkins MD Primary Care Provider [phone] Encounter Details Date Type Department Care Team (Late st Contact Info) Description 01/07/2019 10:30 AM CDT Office Visit [facility] Nephrology and Hypertension [address] [place] [address], [address] [place] [address] Aubrey Reyna MD [address] [facility], [address] [place] [address] Chronic kidney disease stage 3 (CMS-HCC); Diabetes [...] PROTCREATUR 64 09/24/2018 PTH 109 (H) 09/24/2018 [id number] 27 (L) 09/24/2018 ASSESSMENT AND PLAN 1. [...] Lab Routine Chronic kidney disease stage 3 ([facility]) Diabetes mellitus with renal manifestations ([facility]) Hypertensive renal disease Expected: 04/09/2019, Expires: 01/08/2020 documented as of this encounter Procedures Procedure Name Priority Date/Time Associated Diagnosis Comments TOTAL PROTEIN W/ CREATININE, URINE, RANDOM Routine 06/01/2019 9:59 AM MANAGER CONTENT Chronic kidney disease stage 3 ([facility]-H[facility]) Diabetes mellitus with renal manifestations ([facility]) Hypertensive renal disease RENAL FUNCTION PANEL (RFP) Routine 06/01/2019 9:59 AM MANAGER CONTENT Chronic kidney disease stage 3 (CMS-HCC) Diabetes mellitus with renal manifestations (CMS-HCC) Hypertensive renal disease HEMOGLOBIN A1C Routine 06/01/2019 9:59 AM MANAGER CONTENT Chronic kidney disease stage 3 (CMS-HCC) Diabetes mellitus with renal manifestations ([facility]) Hypertensive renal disease PTH INTACT W/O CALCIUM, SERUM Routine 06/01/2019 9:59 AM MANAGER CONTENT Chronic kidney disease stage 3 ([facility]) Diabetes mellitus with renal manifestations ([facility]) Hypertensive renal disease documented in this encounter Results * (ABNORMAL) Hemoglobin A1c, Serum (06/01/2019 9:59 AM MANAGER CONTENT) Hemoglobin A1c/Hemoglobin, total, Blood 6.0(H) <5.7 % of total Hgb [facility] [place] (STL) Comment: For [...] children. Blood (Blood, Venous) 06/01/2019 9:59 AM MANAGER CONTENT 06/01/2019 10:00 AM MANAGER CONTENT Narrative [facility] [place] ([facility]) - 06/02/2019 2:45 PM MANAGER CONTENT FASTING:YES FASTING: YES Resulting Agency Comment Performing Organization Information: ?Site ID: [place] ?Name: [facility] ?Address: [address] [place] [id number] ?Director: Hakeem Jenkins D.O., MPH Aubrey Reyna MD LAB BLOOD ORDERABLES [facility] [place] (STL) * (ABNORMAL) PTH Intact w/o Calcium, Serum (06/01/2019 9:59 AM MANAGER CONTENT) PTH, Intact, Serum/Plasma 90(H) 14 - 64 pg/mL [facility] [place] ([facility]) Comment: Interpretive Guide ?Intact PTH ? Calcium ? ------- Normal Parathyroid ?Normal ? Normal Hypoparathyroidism ?Low or Low Normal ?Low Hyperparathyroidism ?? Primary ?Normal or High ? High ?? Secondary ?High ? Normal or Low ?? Tertiary ? High ? High Non-Parathyroid ?? Hypercalcemia ?Low or Low Normal ?High Blood (Blood, Venous) 06/01/2019 9:59 AM MANAGER CONTENT 06/01/2019 10:00 AM MANAGER CONTENT Narrative [facility] - [facility] [place] ([facility]) - 06/02/2019 2:45 PM MANAGER CONTENT FASTING:YES FASTING: YES Resulting Agency Comment Performing Organization Information: ?Site ID: [place] ?Name: [facility] ?Address: [address] [place] [address] ?Director: Hakeem Jenkins D.O., MPH Aubrey Reyna MD LAB BLOOD ORDERABLES [facility] [place] ([facility]) * Total Protein w/ Creatinine, Urine, Random (06/01/2019 9:59 AM MANAGER CONTENT) Creatinine, Urine 81 20 - 275 mg/dL [facility] [place] ([facility]) Protein/Creatin ine, Urine 86 21 - 161 mg/g creat [facility] ([facility]) Protein/Creatin ine, Urine 0.086 0.021 - 0.161 mg/mg creat [facility] ([facility]) Protein, Urine 7 5 - 24 mg/dL [facility] (ST) 06/01/2019 9:59 AM MANAGER CONTENT 06/01/2019 10:00 AM MANAGER CONTENT Narrative [facility] ([facility]) - 06/02/2019 2:45 PM MANAGER CONTENT FASTING:YES FASTING: YES Resulting Agency Comment Performing Organization Information: ?Site ID: [place] ?Name: [employer] ?Address: [address] [place] [address] ?Director: Hakeem Jenkins D.O., MPH Aubrey Reyna MD LAB URINE ORDERABLES [facility] [place] (ST) * (ABNORMAL) Renal Function Panel (RFP) (06/01/2019 9:59 AM MANAGER CONTENT) Glucose, Serum/Plasma 155(H) 65 - 99 mg/dL [facility] [place] (ST[facility]) Comment: ? Fasting reference interval For someone without known diabetes, a glucose value >125 mg/dL indicates that they may have diabetes and this should be confirmed with a follow-up test. Urea nitrogen, Serum/Plasma (BUN) 36(H) 7 - 25 mg/dL [facility] [place] ([facility]) Creatinine, Serum/Plasma 1.86(H) 0.50 - 0.99 mg/dL [facility] [place] (ST) Comment: For patients >49 years of age, the reference limit for Creatinine is approximately 13% higher for people identified as -Sammarinese. eGFR, non 27(L) > OR = 60 mL/min/1. 73m2 [facility] [place] ([facility]) eGFR, 31(L) > OR = 60 mL/min/1. 73m2 [facility] [place] ([facility]) Urea nitrogen/Creatinin e, Serum/Plasma 19 6 - 22 (calc) [facility] ([facility]) Sodium, [...] Calcium, Serum/Plasma 9.4 8.6 - 10.4 mg/dL [facility] [place] ([facility]) Phosphate, Serum/Plasma 4.3 2.1 - 4.3 mg/dL [facility] ([facility]) Albumin, Serum/Plasma 4.1 3.6 - 5.1 g/dL [facility] ([facility]) Blood (Blood, Venous) 06/01/2019 9:59 AM MANAGER CONTENT 06/01/2019 10:00 AM MANAGER CONTENT Narrative [facility] ([facility]) - 06/02/2019 2:45 PM MANAGER CONTENT FASTING:YES FASTING: YES Resulting Agency Comment Performing Organization Information: ?Site ID: [place] ?Name: [facility] ?Address: [facility] [place] [address] ?Director: Hakeem Jenkins D.O., MPH Aubrey Reyna MD LAB BLOOD ORDERABLES [facility] ([facility]) documented in this encounter Visit Diagnoses Diagnosis Chronic kidney disease stage 3 (CMS-HCC) Diabetes mellitus with renal manifestations (CMS-HCC) Hypertensive renal disease documented in this encounter Care Teams Physical Therapy Teacher Relationship Specialty Start Date End Date Karrie Tompkins MD [address] [place] [address] [place] [address] PCP - General 09/07/18 documented as of this encounter
--- OUTSIDE RECORDS SUMMARY | 2024-04-11 22:00 | XMS_ITS | Encounter Summary ---
Author Organization [facility] Address [address] [place] [address] Phone Care Team Providers Care Radiotelephone Operator Name Role Phone Karrie Tompkins MD Primary Care Provider [phone] Encounter Details Date Type Department Care Team (Late st Contact Info) Description 10/09/2018 Telephone [facility] Nephrology and Hypertension [facility], [address] [place] [address] Aubrey Reyna MD [address] [facility], [address] [place] [address] Social History Tobacco Use Types Packs/Day Years [...] on filedocumented in this encounter Care Teams Radiotelephone Operator Relationship Specialty Start Date End Date Karrie Tompkins MD [address] [place] [address] [place] [address] PCP - General 09/07/18 documented as of this encounter
--- OUTSIDE RECORDS SUMMARY | 2024-04-11 22:00 | XMS_ITS | Encounter Summary ---
Author Organization [facility] Address [address] [place] [address] Phone Care Team Providers Care Turn Sewer Name Role Phone Karrie Tompkins MD Primary Care Provider [phone] Encounter Details Date Type Department Care Team (Late st Contact Info) Description 08/12/2020 Telephone [facility] Nephrology and Hypertension [address] [facility], [address] [address] Aubrey Reyna MD [address] [facility], [address] [place] [address] Social History Tobacco Use Types Packs/Day Years [...] lab orders for that appt sent to [facility]. Thank you documented in this encounter Plan of Treatment Not on file documented as of this encounter Visit Diagnoses Not on filedocumented in this encounter Care Teams Turn Sewer Relationship Specialty Start Date End Date Karrie Tompkins MD [address] [place] [address] [place]uz [phone] PCP - General 09/07/18 documented as of this encounter
--- OUTSIDE RECORDS SUMMARY | 2024-04-11 22:01 | XMS_ITS | Encounter Summary ---
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 BMI: 26.4 Prior spine surgery: YES, 1986-LUMBAR LAMINECTOMY AND 2006-CERVICAL DISC REPLACEMENT [facility] Physical therapy NO Injections NO Are you a current smoker: No Insurance: [facility] MEDICARE HMO Litigation: NO Imaging Done: Yes MRI: 08/2021 Imaging Location: [facility] PT TO BRING CD AND ARRIVE 45 MINS EARLY documented in this encounter Plan of Treatment Not on file documented as of this encounter Visit Diagnoses Not on filedocumented in this encounter Care Teams Application Specialist Relationship Specialty Start Date End Date Karrie Tompkins MD PCP - General Family Medicine 11/21/18 01/19/24 documented as of this encounter
--- OUTSIDE RECORDS SUMMARY | 2024-04-11 22:01 | XMS_ITS | Encounter Summary ---
Author Organization [facility] Address [address] [facility] [address] [place] [address] Care Team Providers Care Client Service Executive Name Role Phone Karrie Tompkins MD Primary Care Provider + Reason for Visit * Reason Onset Date Comments Reschedule 04/10/2021 Encounter Details Date Type Department Care Team (Late st Contact Info) Description 04/10/[address] 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 EMMIE out of office on 04/17/21 UNICATIONS PLANNER documented in this encounter Plan of Treatment Not on file documented as of this encounter Visit Diagnoses Not on filedocumented in this encounter Care Teams Client Service Executive Relationship Specialty Start Date End Date Karrie Tompkins MD PCP - General Family Medicine 11/21/18 01/19/24 documented as of this encounter
--- OUTSIDE RECORDS SUMMARY | 2024-04-11 22:01 | XMS_ITS | Encounter Summary ---
Author Organization [facility] Address [address] [place] [address] Care Team Providers Care Medicare Nurse Name Role Phone Karrie Tompkins MD Primary Care Provider + Reason for Referral * Cardiology (Routine) - Closed Specialty Diagnoses / Procedures Referred By Contac t Referred To Contact Diagnoses Essential hypertension Dyspnea on exertion Procedures Transthoracic Echo Complete W Doppler/CF Zaina Murillo MD [address] [address] Phone: tel: fax: [facility] Referral ID Status Reason Start Date Expiration Date Visits Re quested Visits Authorized [id number] Closed 04/11/2020 05/11/2021 1 1 MAINTENANCE TECHNICIAN Reason for Visit * Reason Comments ANN 6 month f/u. Pt not having any problems at this time. 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 Encounter Details Date Type Department Care Team (Latest Contact Info) Description 04/11/2020 10:30 AM LINE MAINTENANCE TECHNICIAN Office Visit [facility] Medical [facility] Cardiology [address] [facility] [address] [place] [address] Zaina Murillo MD [address] [address] Essential hypertension (Primary Dx); Dyspnea [...] on file Legal Sex Female 8:14 PM LINE MAINTENANCE TECHNICIAN Gender Identity Not on file Sexual Orientation Not on file documented as of this encounter Last Filed Vital Signs Vital Sign Reading Time Taken Comments Blood Pressure 136/80 04/11/2020 10:32 AM LINE MAINTENANCE TECHNICIAN Pulse 85 04/11/2020 10:32 AM LINE MAINTENANCE TECHNICIAN Temperature - - Respiratory Rate - - Oxygen Saturation 91% 04/11/2020 10:32 AM LINE MAINTENANCE TECHNICIAN Inhaled Oxygen Concentration - - Weight 75.8 kg (167 lb 1.6 oz) 04/11/2020 10:32 AM LINE MAINTENANCE TECHNICIAN Height 152.4 cm (5') 04/11/2020 10:32 AM LINE MAINTENANCE TECHNICIAN Body Mass Index 32.63 04/11/2020 10:32 AM LINE MAINTENANCE TECHNICIAN documented in this encounter Progress Notes * Zaina Murillo MD - 04/11/2020 10:30 AM CST [facility] Cardiology [address] [place] [address] Date of Visit: 10/12/2019 Patient ID: Kandace [...] massive myocardial infarction. 04/06/2019 follow-up visit with STEAK TENDERIZER MACHINE: She returns for follow-up of her dyspnea [...] chest pain recently. 10/12/2019 follow-up visit with STEAK TENDERIZER MACHINE: She returns for six-month follow-up. She reports [...] unspecified whether stage 3a or 3b CKD ([facility]) Mixed hyperlipidemia Plan/Recommendations: Her dyspnea on exertion [...] in the past that was evaluated by nuclear radiologist in the [facility] area where she previously lived. [...] This note is dictated and transcribed using [employer] Direct Software. Vending Machine Technician variancesmay occur. Despite proofreading, typographical errors may occur. MAINTENANCE TECHNICIAN documented in this encounter Miscellaneous Notes * Addendum Note - Nori Rogers MA - 04/11/2020 10:30 AM CSTAddended by: NORI ROGERS on: 04/11/2020 11:03 AM Modules accepted: Orders MAINTENANCE TECHNICIAN documented in this encounter Plan of Treatment Not on file documented as of this encounter Procedures Procedure Name Priority Date/Time Associated Diagnosis Comments POCT LIPID PANEL Routine 04/11/2020 11:0 1 AM LINE MAINTENANCE TECHNICIAN Mixed hyperlipidemia documented in this encounter Results * Transthoracic Echo Complete W Doppler/CF (04/27/2020 10:17 AM LINE MAINTENANCE TECHNICIAN) Anatomical Region Laterality Modality Ultrasound 04/27/2020 10:1 7 AM LINE MAINTENANCE TECHNICIAN Narrative 04/27/2020 12:39 PM LINE MAINTENANCE TECHNICIAN [facility] Cardiology [address], [place] [address] [address] [facility] [address], [place] [address] P:[phone] P:[phone] Echocardiographic Report Patient Name: KANDACE COLE : 11--1950 Study Date: 04/27/2020 10:17:22 AM Gender: F Tech: Location: [place] Ref.Provider: DANIELLE Height(Cm): 152 BSA: 1.73 Weight(Kg): [...] Site: Exam was interpreted at [facility]. Left Ventricle: Normal left ventricular systolic [...] Signed By: Yusuf Novak MD 2020-04-27 12:39:52 LINE MAINTENANCE TECHNICIAN Procedure Note Gustavo Novak MD - 04/27/2020 [facility] Cardiology [address] [facility] [address] [address] [address] [facility] [address], [place] [address] P:[phone] P:[phone] Echocardiographic Report Patient Name: KANDACE COLEPatient ID: [id number] : [id number] Date: 04/27/2020 10:17:22 AM Gender: FAccession #: [id number] Tech: GMLocation: [place] Ref.Provider: Tiffanyight(Cm): 152 BSA: 1.73Weight(Kg): 75.75 Heart [...] 0.40 - 0.80 ] m/s MV Decel Fwiu041 [ 150 - 200 ] msec PV Peak Vel1.35 [ 0.40 - 0.80 ] m/s E'0.07 E/E' 14 Findings: Interpretation Site: Exam was interpreted at [facility]. Left Ventricle: Normal left ventricular systolic [...] Signed By: Yusuf Novak MD 2020-04-27 12:39:52 LINE MAINTENANCE TECHNICIAN Zaina Murillo MD CV ECHO PROCEDURES F inal Result * POCT lipid panel (04/11/2020 11:01 AM LINE MAINTENANCE TECHNICIAN) Cholesterol, POC 160 mg/dL Comment:GLU = 162 HDL, POC 42 mg/dL Triglycerides, POC 253 mg/dL LDL Cholesterol POC 67 mg/dL Chol/HDL Ratio, POC 3.8 Non-HDL Cholesterol, POC 118 mg/dL Cholesterol Total, POC 160 mg/dL Capillary blood 04/11/2020 1 1:01 AM LINE MAINTENANCE TECHNICIAN us Zaina Murillo MD POINT OF CARE [...] 04/07/2020 added in this encounter Care Teams Medicare Nurse Relationship Specialty Start Date End Date Karrie Tompkins MD PCP - General Family Medicine 11/21/18 01/19/24 documented as of this encounter
--- OUTSIDE RECORDS SUMMARY | 2024-04-11 22:01 | XMS_ITS | Encounter Summary ---
Author Organization [facility] Address [address] [place] [address] Phone Care Team Providers Care Blade Sharpener Name Role Phone Karrie Tompkins MD Primary Care Provider + Encounter Details Date Type Department Care Team (Late st Contact Info) Description 12/01/2021 Orders Only [facility] Neurosurgery [address] [facility] [address] Office [address] [place] [address] Landon Lopes, DO [address] [place] [address] Neck pain (Primary Dx) Social History Tobacco [...] on file Legal Sex Female 8:14 PM GARMENT MENDER Gender Identity Not on file Sexual Orientation Not on file documented as of this encounter Plan of Treatment Not on file documented as of this encounter Visit Diagnoses Diagnosis Neck pain- Primary Cervicalgia documented in this encounter Care Teams Blade Sharpener Relationship Specialty Start Date End Date Karrie Tompkins MD PCP - General Family Medicine 11/21/18 01/19/24 documented as of this encounter
--- OUTSIDE RECORDS SUMMARY | 2024-04-11 22:01 | XMS_ITS | Encounter Summary ---
Author Organization [facility] Address [address] [place] [address] Care Team Providers Care Director Of Gift Planning Name Role Phone Karrie Tompkins MD Primary Care Provider + Encounter Details Date Type Department Care Team (Latest Contact Info) Description 11/30/2021 7:47 AM CDT - 11/30/2021 8:00 AM CDT Hospital Encounter [facility] [address] [place] [address] Discharge Disposition: Discharge to home or self [...] on file Legal Sex Female 8:14 PM TOILET AND LAUNDRY SOAP SUPERVISOR Gender Identity Not on file Sexual [...] Outside Reference (11/30/2021 7:47 AM CDT) Impressions [facility]PACS_[facility] - 11/30/2021 7:47 AM CDT These images are for Reference purposes only and have not been reviewed by [facility] Radiology. ??There will be no report generated by a [facility] Radiologist. Narrative [facility] - 11/30/2021 7:47 AM CDT EXAMINATION: ??Images For Reference Purposes Only us Sky Leon MD PhD IMG CT PROCEDURES Final R esult [facility]PACS[facility] documented in this encounter Visit Diagnoses Not on filedocumented in this encounter Care Teams Director Of Gift Planning Relationship Specialty Start Date End Date Karrie Tompkins MD PCP - General Family Medicine 11/21/18 01/19/24 documented as of this encounter
--- OUTSIDE RECORDS SUMMARY | 2024-04-11 22:01 | XMS_ITS | Encounter Summary ---
Author Organization [facility] Address [address] [facility] [address] [place] [address] Care Team Providers Care Clerical Receptionist Name Role Phone Karrie Tompkins MD Primary Care Provider + Encounter Details Date Type Department Care Team (Late st Contact Info) Description 04/06/2019 Telephone [facility] Cardiology [address] [place] [address] [place] [address] [place] [address] Social History Tobacco Use Types Packs/Day Years [...] on file Legal Sex Female 8:14 PM PROCESS DEVELOPMENT ASSOCIATE Gender Identity Not on file Sexual Orientation Not on file documented as of this encounter Miscellaneous Notes * Telephone Encounter - Junie Holliday MA - 04/06/2019 2:56 PM CST Stanislav Torres lm for medical records at [phone] also faxed for request at [phone] [facility], ESS DEVELOPMENT ASSOCIATE documented in this encounter Plan of Treatment Not on file documented as of this encounter Visit Diagnoses Not on filedocumented in this encounter Care Teams Clerical Receptionist Relationship Specialty Start Date End Date Karrie Tompkins MD PCP - General Family Medicine 11/21/18 01/19/24 documented as of this encounter
--- OUTSIDE RECORDS SUMMARY | 2024-04-11 22:01 | XMS_ITS | Encounter Summary ---
Author Organization [facility] Address [address] [facility] [address] [place] [address] Care Team Providers Care Pail Tester Name Role Phone Karrie Tompkins MD Primary Care Provider + Reason for Visit * Reason Comments Surgical Clearance Encounter Details Date Type Department Care Team (Late st Contact Info) Description 04/12/2022 9:30 AM MANUFACTURING COST ESTIMATOR Office Visit [facility] Cardiology [address] [facility] [address] [facility] [address] [place] [address] Rhea Torres NP [address] [place] [address] Dyspnea on exertion (Primary Dx); [...] on file Legal Sex Female 8:14 PM MANUFACTURING COST ESTIMATOR Gender Identity Not on file Sexual Orientation Not on file documented as of this encounter Last Filed Vital Signs Vital Sign Reading Time Taken Comments Blood Pressure 114/50 04/12/2022 9:33 AM MANUFACTURING COST ESTIMATOR Pulse 73 04/12/2022 9:33 AM MANUFACTURING COST ESTIMATOR Temperature - - Respiratory Rate - - Oxygen Saturation 99% 04/12/2022 9:33 AM MANUFACTURING COST ESTIMATOR Inhaled Oxygen Concentration - - Weight 61.7 kg (136 lb) 04/12/2022 9:33 AM MANUFACTURING COST ESTIMATOR Height 152.4 cm (5') 04/12/2022 9:33 AM MANUFACTURING COST ESTIMATOR Body Mass Index 26.56 04/12/2022 9:33 AM MANUFACTURING COST ESTIMATOR documented in this encounter Progress Notes * Rhea Torres NP - 04/12/2022 9:30 AM CST Images from the original note were not included. [facility] Cardiology [address] [place] [address] Date of Visit: 04/12/2022 Patient ID: Kandace [...] massive myocardial infarction. 04/06/2019 follow-up visit with BOOKKEEPING MACHINE MECHANIC: She returns for follow-up of her dyspnea [...] chest pain recently. 10/12/2019 follow-up visit with BOOKKEEPING MACHINE MECHANIC: She returns for six-month follow-up. She reports [...] palpitations at night. 10/16/2021 follow-up visit with BOOKKEEPING MACHINE MECHANIC: She is here for annual follow-up. Over [...] the last year. 04/12/2022 office visit with BOOKKEEPING MACHINE MECHANIC. She returns to the office at my [...] facial fractures, and she was transferred from [place] to [facility] for further evaluation and treatment. Her carvedilol was placed on hold but has restarted and she said she is not had further low blood pressures. She was instructed on generous dietary sodium intake and her sodium has improved. She is still following with Dr. Reyna for her CKD. She denies chest pain. Her chronic NAN is unchanged. She is able to go [...] above) 10/16/2021 office note from myself, 02/14/2022 [facility] discharge summary, today's ECG. I have also reviewed: allergies, current medications, past family history, past medical history, past social history, past surgical history and problem list Medical History: Past Medical History: Diagnosis Date Ferrell's esophagus COPD (chronic obstructive pulmonary disease) ([facility]) ([facility]) Depression Heart murmur Hyperlipidemia Hypertension Iron deficiency [...] by mouth nightly, Disp: , Rfl: vitamins A,C,P-yuwl-ehsghy (PreserVision AREDS) 2,148 mcg-113 mg-45 mg-17.4mg tablet, [...] and lost weight. CKD is followed by news copy editor Dr. Reyna. Continue Nephrology follow-up. From a [...] concerns. 04/12/2022 CYNDI Marcum- Nurse Practitioner with [facility] Cardiology This note is dictated and transcribed using [employer] Direct Software. Forest Firefighter variancesmay occur. Despite proofreading, typographical errors may occur. FACTURING COST ESTIMATOR documented in this encounter Miscellaneous Notes * Addendum Note - Jazmin Gurrola MA - 04/12/2022 9:30 AM CSTAddended by: JAZMIN GURROLA on: 04/12/2022 10:53 AM Modules accepted: Orders FACTURING COST ESTIMATOR documented in this encounter Plan of Treatment [...] reflect changes made after this encounter. vitamins A,C,Y-vapx-hhhqn r (PreserVision AREDS) 2,148 mcg-113 mg-45 mg-17.4mg tablet 1 tablet polyvinyl alcohol (LIQUIFILM TEARS) 1.4 % ophthalmic solution Administer 1 drop into affected eye(s) every 4 (four) hours as needed 02/19/2022 citalopram (CeleXA) 40 mg tablet 04/07/2022 added in this encounter Care Teams Pail Tester Relationship Specialty Start Date End Date Karrie Tompkins MD PCP - General Family Medicine 11/21/18 01/19/24 documented as of this encounter
--- OUTSIDE RECORDS SUMMARY | 2024-04-11 22:01 | XMS_ITS | Encounter Summary ---
Author Organization [facility] Address [address] [place] [address] Phone Care Team Providers Care Bmx Rider Name Role Phone Karrie Tompkins MD Primary Care Provider + Encounter Details Date Type Department Care Team (Late st Contact Info) Description 01/02/2020 Telephone [facility] Scheduling [address] [place] [address] Radha Perez CNA Social History Tobacco Use [...] on file Legal Sex Female 8:14 PM MESSENGER FLOORPERSON Gender Identity Not on file Sexual Orientation [...] on filedocumented in this encounter Care Teams Bmx Rider Relationship Specialty Start Date End Date Karrie Tompkins MD PCP - General Family Medicine 11/21/18 01/19/24 documented as of this encounter
--- OUTSIDE RECORDS SUMMARY | 2024-04-11 22:01 | XMS_ITS | Encounter Summary ---
Author Organization [facility] Care Team Providers Care Pharmaceutical Laboratory Technician Name Role Phone Karrie Tompkins MD [...] on file Legal Sex Female 8:14 PM PATIENT ACCOUNTS SPECIALIST Gender Identity Not on file Sexual Orientation Not on file documented as of this encounter Plan of Treatment Not on file documented as of this encounter Visit Diagnoses Not on filedocumented in this encounter Care Teams Pharmaceutical Laboratory Technician Relationship Specialty Start Date End Date Karrie Tompkins MD PCP - General Family Medicine 11/21/18 01/19/24 documented as of this encounter
--- OUTSIDE RECORDS SUMMARY | 2024-04-11 22:01 | XMS_ITS | Encounter Summary ---
Author Organization [facility] Care Team Providers Care Bottle Machine Operator Name Role Phone Karrie Tompkins [...] on file Legal Sex Female 8:14 PM UNIT EDUCATOR Gender Identity Not on file Sexual Orientation Not on file documented as of this encounter Plan of Treatment Not on file documented as of this encounter Visit Diagnoses Not on filedocumented in this encounter Care Teams Bottle Machine Operator Relationship Specialty Start Date End Date Karrie Tompkins MD PCP - General Family Medicine 11/21/18 01/19/24 documented as of this encounter
--- OUTSIDE RECORDS SUMMARY | 2024-04-11 22:01 | XMS_ITS | Encounter Summary ---
Author Organization [facility] Address [address] [facility] [address] [place] [address] Care Team Providers Care Press Operator Carbon Products Name Role Phone Karrie Tompkins MD Primary Care Provider + Reason for Visit * Reason Comments Follow-up 1 yr f/u Hypertension Hyperlipidemia Encounter Details Date Type Department Care Team (Latest Contact Info) Description 10/22/2022 11:30 AM CDT Office Visit [facility] Cardiology [address] [place] [address] Ori Murillo MD [facility] [address] Mixed hyperlipidemia (Primary Dx); Primary [...] on file Legal Sex Female 8:14 PM MICROSYSTEMS ENGINEER Gender Identity Not on file Sexual [...] Murillo MD - 10/22/2022 11:30 AM CDT [facility] Cardiology [address] [place] [address] Date of Visit: 10/22/2022 Patient ID: Kandace [...] for dyspnea on exertion. Patient was in [place] and moved to this area recently. She was evaluated in [place] by stress test about couple years ago that was unremarkable. 02/23/2019 initial consultation: Complains of dyspnea on exertion for the last couple years specially walking half a mi or going up stairs. She did have chest pain, left-sided aggravated by moving the left shoulder and stress test in [place] to was negative. She admits to heartburn when she eats and relieved by antacids. This has not changed form many years. Denies lower limb edema, orthopnea, parox ysmal nocturnal dyspnea, dizziness, syncope. She reports that she was exposed to secondhand smokingall her life. Head brother at age 69 with massive myocardial infarction. 04/06/2019 follow-up visit with FINANCE BUSINESS MANAGER: She returns for follow-up of her [...] chest pain recently. 10/12/2019 follow-up visit with FINANCE BUSINESS MANAGER: She returns for six-month follow-up. She [...] palpitations at night. 10/16/2021 follow-up visit with FINANCE BUSINESS MANAGER: She is here for annual follow-up. Over [...] the last year. 04/12/2022 office visit with FINANCE BUSINESS MANAGER. She returns to the office at my [...] facial fractures, and she was transferred from [place] to [facility] for further evaluation and treatment. Her carvedilol [...] She underwent upper back surgery at [facility] in May 2022 and did well. Shortness of breath on exertion is better than before. Denies chest pain, lower extremity edema, palpitations, dizzinessor syncope. She did gain 10 lb compared to last visit. Medical History: Past Medical History: Diagnosis Date Ferrell's esophagus COPD (chronic obstructive pulmonary disease) ([facility]) Depression Heart murmur Hyperlipidemia Hypertension Iron deficiency [...] by mouth nightly, Disp: , Rfl: vitamins A,C,D-kexw-rwrosx (PreserVision AREDS) 2,148 mcg-113 mg-45 mg-17.4mg tablet, [...] and triglycerides 211. CKD is followed by summer associate Dr. Reyna. Continue Nephrology follow-up. She takes Lasix 20 mg every other day. Keep the previously scheduled follow-up with Dr. Murillo in 12months. Call us sooner with questions or concerns. Ori Murillo MD This note is dictated and transcribed using [employer] Direct Software. Copy Writer variancesmay occur. Despite proofreading, typographical errors may [...] abnormality documented in this encounter Care Teams Press Operator Carbon Products Relationship Specialty Start Date End Date Karrie Tompkins MD PCP - General Family Medicine 11/21/18 01/19/24 documented as of this encounter
--- OUTSIDE RECORDS SUMMARY | 2024-04-11 22:01 | XMS_ITS | Referral Summary ---
Author Organization [facility] [address] [facility] [address] Address [address] [place] [address] Care Team Providers Care Bonding Molder Name Role Phone Farhat Crocker NP Primary Care Provider [phone] Encounters Date Type Department Care Team Description 01/20/2024 12:30 PM CDT Office Visit [facility] Cardiology [address] [place] [address] Ori Murillo MD Mixed hyperlipidemia [...] on file Legal Sex Female 8:14 PM COMPUTER GRAPHICS ILLUSTRATOR Gender Identity Not on file Sexual Orientation [...] from Last 3 Months Insurance [employer] [place] [id number] H[address] REF [place] [id number] [place] [id number] [employer] [place] [id number] Care Teams Bonding Molder Relationship Specialty Start Date End Date Farhat Crocker NP [address] [place] [address] PCP - General Family Medicine 01/20/24
--- OUTSIDE RECORDS SUMMARY | 2024-04-11 22:01 | XMS_ITS | Encounter Summary ---
Author Organization [facility] Address [address] [facility] [address] [place] [address] Care Team Providers Care Shell Sieve Operator Name Role Phone Karrie Tompkins MD Primary Care Provider + Reason for Visit * Reason Comments Follow-up HTN,HLD Encounter Details Date Type Department Care Team (Late st Contact Info) Description 04/06/2019 10:30 AM CHILD CARE COOK Office Visit [facility] Cardiology [address] [facility] [address] [place] [address] Rhea Torres, NEAL [address] [facility] [address] [place] [address] Dyspnea on exertion (Primary Dx); [...] on file Legal Sex Female 8:14 PM CHILD CARE COOK Gender Identity Not on file Sexual Orientation Not on file documented as of this encounter Last Filed Vital Signs Vital Sign Reading Time Taken Comments Blood Pressure 140/76 04/06/2019 10:42 AM CHILD CARE COOK Pulse 68 04/06/2019 10:42 AM CHILD CARE COOK Temperature - - Respiratory Rate - - Oxygen Saturation 99% 04/06/2019 10:42 AM CHILD CARE COOK Inhaled Oxygen Concentration - - Weight 69.4 kg (153 lb) 04/06/2019 10:42 AM CHILD CARE COOK Height 154.9 cm (5' 1 ) 04/06/2019 10:42 AM CHILD CARE COOK Body Mass Index 28.91 04/06/2019 10:42 AM CHILD CARE COOK documented in this encounter Progress Notes * [...] massive myocardial infarction. 04/06/2019 follow-up visit with CHIEF OPERATING OFFICER: She returns for follow-up of her dyspnea [...] copy of her stress test done at heating and refrigeration inspector's office in the [facility] area couple of years ago. Counseling performed at this visit included signs and symptoms of CHF exacerbation and the difference between cardiac and noncardiac chest pain. Return to the office to see Dr. Murillo in 6 months. Call us sooner with questions or concerns. Rhea Torres, CYNDI- Nurse Practitioner with [facility] This note is dictated and transcribed using [employer] Direct Software. Copier Repair Technician variancesmay occur. Despite proofreading, typographical errors may occur. Cosigned by Ori Murillo MD at 04/07/2019 3:22 PM CHILD CARE COOK D CARE COOK D CARE COOK documented in this encounter Plan of Treatment [...] 04/11/2020 added in this encounter Care Teams Shell Sieve Operator Relationship Specialty Start Date End Date Karrie Tompkins MD PCP - General Family Medicine 11/21/18 01/19/24 documented as of this encounter
--- OUTSIDE RECORDS SUMMARY | 2024-04-11 22:01 | XMS_ITS | Encounter Summary ---
Author Organization [facility] Address [address] [place] [address] Care Team Providers Care Lightning Rod Installer Name Role Phone Karrie Tompkins MD Primary Care Provider + Reason for Visit * Reason Comments Annual Exam Encounter Details Date Type Department Care Team (Late st Contact Info) Description 10/16/2021 1:30 PM CDT Office Visit [facility] Cardiology [address] [facility] [address] [facility] [address] [place] [address] Rhea Torres NP [address] [facility] [address] [place] [address] Dyspnea on exertion (Primary Dx); [...] on file 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 [facility] Cardiology [address] [place] [address] Date of Visit: 10/16/2021 Patient ID: Kandace [...] for dyspnea on exertion. Patient was in [place] and moved to this area recently. She was evaluated in [place] by stress test about couple years ago that was unremarkable. 02/23/2019 initial consultation: Complains of dyspnea on exertion for the last couple years specially walking half a mi or going up stairs. She did have chest pain, left-sided aggravated by moving the left shoulder and stress test in [place] to was negative. She admits to heartburn when she eats and relieved by antacids. This has not changed form many years. Denies lower limb edema, orthopnea, parox ysmal nocturnal dyspnea, dizziness, syncope. She reports that she was exposed to secondhand smokingall her life. Head brother at age 69 with massive myocardial infarction. 04/06/2019 follow-up visit with PLACEMENT MANAGER: She returns for follow-up of her [...] chest pain recently. 10/12/2019 follow-up visit with PLACEMENT MANAGER: She returns for six-month follow-up. She [...] palpitations at night. 10/16/2021 follow-up visit with PLACEMENT MANAGER: She is here for annual follow-up. [...] modifications. CKD is now being followed by dump motor operator. She was recently started on calcitriol. Continue [...] concerns. 10/16/2021 CYNDI Marcum- Nurse Practitioner with [facility] Cardiology This note is dictated and transcribed using Pneuron Direct Software. Hose Tubing Backer variancesmay occur. Despite proofreading, typographical errors may [...] 07/20/2021 added in this encounter Care Teams Lightning Rod Installer Relationship Specialty Start Date End Date Karrie Tompkins MD PCP - General Family Medicine 11/21/18 01/19/24 documented as of this encounter
--- OUTSIDE RECORDS SUMMARY | 2024-04-11 22:01 | XMS_ITS | Encounter Summary ---
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
--- OUTSIDE RECORDS SUMMARY | 2024-04-11 22:01 | XMS_ITS | Encounter Summary ---
Author Organization [facility] Address [address] [place] [address] Care Team Providers Care Tube Washer Name Role Phone Karrie Tompkins MD Primary Care Provider + Reason for Visit * Reason Onset Date Comments Retrieved outside records 04/30/2019 Encounter Details Date Type Department Care Team (Late st Contact Info) Description 04/30/2019 Documentation [facility] Cardiology [address] [facility] [address] [facility] 102 [place] [address] Rhea Torres NP [address] [facility] [place], [place] [id number] Retrieved outside records Social History Tobacco Use [...] on file 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 PLANTER documented in this encounter Plan of Treatment Not on file documented as of this encounter Visit Diagnoses Not on filedocumented in this encounter Care Teams Tube Washer Relationship Specialty Start Date End Date Karrie Tompkins MD PCP - General Family Medicine 11/21/18 01/19/24 documented as of this encounter
--- OUTSIDE RECORDS SUMMARY | 2024-04-11 22:01 | XMS_ITS | Encounter Summary ---
Author Organization [facility] Address [address] [place] [address] Care Team Providers Care Investigator Fraud Name Role Phone Karrie Tompkins MD Primary Care Provider + Reason for Visit * Cardiology (Routine) - Closed Specialty Diagnoses / Procedures Referred By Contac t Referred To Contact Diagnoses Essential hypertension Dyspnea on exertion Procedures Transthoracic Echo Complete W Doppler/CF Zaina Murillo MD [facility] [address] Phone: tel: fax: [facility] Referral ID Status Reason Start Date Expiration Date Visits Re quested Visits Authorized [id number] Closed 04/11/2020 05/11/2021 1 1 Encounter Details Date Type Department Care Team (Latest Contact Info) Description 04/27/2020 11:15 AM LINE LEAD Ancillary Procedure [facility] Cardiology [address] [facility] [address] [place] [address] Essential hypertension; Dyspnea on exertion [...] file Legal Sex Female 8:14 PM LINE LEAD Gender Identity Not on file Sexual Orientation [...] COMPLETE W DOPPLER/CF Routine 04/27/2020 10:17 AM LINE LEAD Essential hypertension Dyspnea on exertion documented in this encounter Results * Transthoracic Echo Complete W Doppler/CF (04/27/2020 10:17 AM LINE LEAD) Anatomical Region Laterality Modality Ultrasound 04/27/2020 10:1 7 AM LINE LEAD Narrative 04/27/2020 12:39 PM LINE LEAD [facility] Cardiology [address] [facility] [address], [place] [id number] [address] [facility] [address], [place] [address], [place] [address] P:[phone] P:[phone] Echocardiographic Report Patient Name: KANDACE COLE : 1950 Study Date: 04/27/2020 10:17:22 AM Gender: F Tech: Location: [place] Ref.Provider: DANIELLE Height(Cm): 152 BSA: 1.73 Weight(Kg): [...] Findings: Interpretation Site: Exam was interpreted at [facility]. Left Ventricle: Normal left ventricular systolic [...] By: Yusuf Novak MD 2020-04-27 12:39:52 LINE LEAD Procedure Note Gustavo Novak MD - 04/27/2020 [facility] Cardiology [address] [facility] [address] [address] [address] [facility] [address], [place] [address] P:[phone] P:[phone] Echocardiographic Report Patient Name: KANDACE COLEPatient ID: [id number] : [id number] Date: 04/27/2020 10:17:22 AM Gender: FAccession #: [id number] Tech: GMLocation: [place] Ref.Provider: Tiffanyight(Cm): 152 BSA: 1.73Weight(Kg): 75.75 Heart [...] 0.40 - 0.80 ] m/s MV Decel [id number] [ 150 - 200 ] msec PV Peak Vel1.35 [ 0.40 - 0.80 ] m/s E'0.07 E/E' 14 Findings: Interpretation Site: Exam was interpreted at [facility]. Left Ventricle: Normal left ventricular systolic [...] By: Yusuf Novak MD 2020-04-27 12:39:52 LINE LEAD Zaina Murillo MD CV ECHO PROCEDURES F [...] For 1 dose Given 04/27/2020 11:53 AM LINE LEAD 1 mL documented in this encounter Orders Medications Ordered That Florentino ht Not Have Been Administered Count Last Ordered Date First Ordered Date perflutren lipid (DEFINITY) 1.5 mL in sodium chloride 0.9% 10 mL syringe 1 04/27/2020 documented in this encounter Care Teams Investigator Fraud Relationship Specialty Start Date End Date Karrie Tompkins MD PCP - General Family Medicine 11/21/18 01/19/24 documented as of this encounter
--- OUTSIDE RECORDS SUMMARY | 2024-04-11 22:01 | XMS_ITS | Encounter Summary ---
Author Organization [facility] Address [address] [facility] [address] [place] [address] Care Team Providers Care Dumper Operator Name Role Phone Karrie Tompkins MD Primary Care Provider + Reason for Visit * Reason Comments Shortness of Breath Hypertension Encounter Details Date Type Department Care Team (Late st Contact Info) Description 10/12/2019 10:30 AM CDT Office Visit [facility] Cardiology [address] [facility] 102 [place] [address] Rhea Torres, NEAL [address] [facility] 102 [place] [address] Dyspnea on exertion (Primary Dx); [...] on file 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 Patient was in [place] and moved to this area recently. She was evaluated in [place] by stress test about couple years ago [...] massive myocardial infarction. 04/06/2019 follow-up visit with HUMAN RESOURCES SUPERVISOR: She returns for follow-up of her [...] chest pain recently. 10/12/2019 follow-up visit with HUMAN RESOURCES SUPERVISOR: She returns for six-month follow-up. She reports [...] in the past that was evaluated by marine equipment preservation inspector in the [facility] area where she previously lived. I [...] us sooner with questions or concerns. Rhea Torers, ANP-BC Nurse Practitioner with [facility] This note is dictated and transcribed using [employer] Fluency Direct Software. Middleware Solutions Architect variancesmay occur. Despite proofreading, typographical errors [...] 1 added in this encounter Care Teams Dumper Operator Relationship Specialty Start Date End Date Karrie Tompkins MD PCP - General Family Medicine 11/21/18 01/19/24 documented as of this encounter
--- OUTSIDE RECORDS SUMMARY | 2024-04-11 22:01 | XMS_ITS | Encounter Summary ---
Author Organization [facility] Address [address] [place] [address] Care Team Providers Care Snow Plow Operator Name Role Phone Karrie Tompkins MD Primary Care Provider + Reason for Visit * Reason Comments New Patient DYSPNEA * Cardiology (Routine) - Closed Specialty Diagnoses / Procedures Referred By Contac t Referred To Contact Cardiology Diagnoses Dyspnea, unspecified type Karrie Tompkins MD Phone: tel: fax: [facility] [address] [place] [address] [place] [address] Phone: tel: fax: Referral ID Status Reason Start Date Expiration Date V isits Requested Visits Authorized [id number] Closed Specialty Services Required 11/21/2018 06/01/2020 1 1 Encounter Details Date Type Department Care Team (Late Contact Info) Description 02/23/2019 9:30 AM PIN SORTER AND BAGGER Office Visit [facility] [address] [place] [address] [address] [place] [address] Ori Murillo MD [address] [place] [address] Dyspnea on exertion (Primary Dx); Dyspnea, unspecified type; Essential hypertension; Mixed hyperlipidemia; Type 2 diabetes mellitus with stage 3 chronic kidney disease, without long-term current use of insulin ([facility]) Social History Tobacco Use Types Packs/Day Years [...] on file Legal Sex Female 8:14 PM PIN SORTER AND BAGGER Gender Identity Not on file Sexual Orientation Not on file documented as of this encounter Last Filed Vital Signs Vital Sign Reading Time Taken Comments Blood Pressure 120/60 02/23/2019 9:22 AM PIN SORTER AND BAGGER Pulse 71 02/23/2019 9:22 AM PIN SORTER AND BAGGER Temperature - - Respiratory Rate - - Oxygen Saturation 98% 02/23/2019 9:22 AM PIN SORTER AND BAGGER Inhaled Oxygen Concentration - - Weight 72.1 kg (159 lb) 02/23/2019 9:22 AM PIN SORTER AND BAGGER Height 154.9 cm (5' 1 ) 02/23/2019 9:22 AM PIN SORTER AND BAGGER Body Mass Index 30.04 02/23/2019 9:22 AM PIN SORTER AND BAGGER documented in this encounter Progress Notes * [...] Normal sinus rhythm Echo 10/30/2018. Done at [facility]. Ejection fraction 65%, abnormal diastolic function, ASSESSMENT Diagnoses and all orders for this visit: Dyspnea on exertion (Primary) Dyspnea, unspecified type - Ambulatory referral to Cardiology Essential hypertension Mixed hyperlipidemia Type 2 diabetes mellitus with stage 3 chronic kidney disease, without long-term current use of insulin ([facility]) PLAN/RECOMMENDATIONS -in regards for dyspnea on exertion, the echocardiogram shows normal systolic function and abnormaldiastolic function. She looks euvolemic on physical exam today. We will obtain the stress test results that were done in [place] 2 years ago. COPD can contribute to [...] office in 6 weeks. Ori Murillo MD SORTER AND BAGGER documented in this encounter Miscellaneous Notes * Addendum Note - Junie Oro MA - 02/23/2019 9:30 AM CSTAddended by: JUNIE ORO on: 02/23/2019 05:42 PM Modules accepted: Orders SORTER AND BAGGER documented in this encounter Plan of Treatment Not on file documented as of this encounter Procedures Procedure Name Priority Date/Time Associated Diagnosis Comments POCT LIPID PANEL Routine 02/23/2019 5:40 PM PIN SORTER AND BAGGER Mixed hyperlipidemia documented in this encounter Results * POCT lipid panel (02/23/2019 5:40 PM PIN SORTER AND BAGGER) Cholesterol, POC 158 mg/dL HDL, POC 33 mg/dL Triglycerides, POC 178 mg/dL LDL Cholesterol POC 89 mg/dL Chol/HDL Ratio, POC 4.7 Non-HDL Cholesterol, POC 124 mg/dL Cholesterol Total, POC 158 mg/dL Blood specimen (specimen) 02/23/2019 5:40 PM PIN SORTER AND BAGGER Ori Murillo MD POINT OF CARE TEST O RDERABLES Final Result documented in this encounter Visit Diagnoses Diagnosis Dyspnea on exertion- Primary Other dyspnea and respiratory abnormality Dyspnea, unspecified type Essential hypertension Unspecified essential hypertension Mixed hyperlipidemia Type 2 diabetes mellitus with stage 3 chronic kidney disease, without long-term current use of insulin ([facility]) documented in this encounter Historical Medications * [...] 02/23/2019 documented in this encounter Care Teams Snow Plow Operator Relationship Specialty Start Date End Date Karrie Tompkins MD PCP - General Family Medicine 11/21/18 01/19/24 documented as of this encounter
--- OUTSIDE RECORDS SUMMARY | 2024-04-11 22:01 | XMS_ITS | Encounter Summary ---
Author Organization [facility] Address [address] [place] [address] Care Team Providers Care Ink Jet Operator Name Role Phone Farhat Crocker NP Primary Care Provider [phone] Reason for Visit * Reason Comments Follow-up Overdue annual f/u Hypertension Hyperlipidemia Shortness of Breath Encounter Details Date Type Department Care Team (Latest Contact Info) Description 01/20/2024 12:30 PM CDT Office Visit [facility] Cardiology [address] [facility] [address] [place] [address] Ori Murillo MD [address] [place] [address] Mixed hyperlipidemia (Primary Dx); Primary hypertension; [...] on file 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 04/06/2019 follow-up visit with SHIPPING COORDINATOR: She returns for follow-up of her dyspnea [...] chest pain recently. 10/12/2019 follow-up visit with SHIPPING COORDINATOR: She returns for six-month follow-up. She reports [...] palpitations at night. 10/16/2021 follow-up visit with SHIPPING COORDINATOR: She is here for annual follow-up. Over [...] the last year. 04/12/2022 office visit with SHIPPING COORDINATOR. She returns to the office at my [...] facial fractures, and she was transferred from [place] [facility] and [facility]. Her [...] grandson. She underwent upper back surgery at [facility] in May 2022 and did well. [...] Use: Not At Risk (06/20/2022) Received from [facility] Health AUDIT-C Frequency of Alcohol Consumption: [...] by mouth nightly, Disp: , Rfl: vitamins A,C,P-dkud-ltmawu (PreserVision AREDS) 2,148 mcg-113 mg-45 mg-17.4mg tablet, [...] cardiac structure and function. Repeat echo at [facility] 2021 shows ejection fraction 72%, severe mitral annular calcification mild mitral stenosis. Consider repeating echo next visit. In regards to hypertension, blood pressure today 120/58. Continue carvedilol and lisinopril. She has a history of hyperlipidemia. Continue pravastatin. Lipid panel done today January 20 2024LDL 84, HDL 31 and triglycerides 131. CKD is followed by fishing line winding machine operator Dr. Reyna. Continue Nephrology follow-up. She takes Lasix 20 mg every other day. Keep the previously scheduled follow-up with Dr. Murillo in 12months. Call us sooner with questions or concerns. Ori Murillo MD This note is dictated and transcribed using ibeatyou Direct Software. Rn Peritoneal Dialysis variancesmay occur. Despite proofreading, typographical errors may [...] abnormality documented in this encounter Care Teams Ink Jet Operator Relationship Specialty Start Date End Date Farhat Crocker NP [address] [place] [address] PCP - General Family Medicine 01/20/24 documented as of this encounter
--- OUTSIDE RECORDS SUMMARY | 2024-04-11 22:01 | XMS_ITS | Encounter Summary ---
Author Organization [facility] Address [address] [facility] [address] [place] [address] Care Team Providers Care Shuttle Hand Name Role Phone Karrie Tompkins MD Primary Care Provider + Reason for Visit * Reason Comments Follow-up 6 mo follow up on HT N, ANN, HLD Encounter Details Date Type Department Care Team (Late Contact Info) Description 10/10/2020 11:00 AM CDT Office Visit [facility] Cardiology [address] [facility] [address] [place] [address] Ori Murillo MD [address] [place] [address] Dyspnea on exertion (Primary Dx); Essential [...] file 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 Patient was in [place] and moved to this area recently. She was evaluated in [place] by stress test about couple years ago that was unremarkable. 02/23/2019 initial consultation: Complains of dyspnea on exertion for the last couple years specially walking half a mi or going up stairs. She did have chest pain, left-sided aggravated by moving the left shoulder and stress test in [place] to was negative. She admits to heartburn when she eats and relieved by antacids. This has not changed form many years. Denies lower limb edema, orthopnea, parox ysmal nocturnal dyspnea, dizziness, syncope. She reports that she was exposed to secondhand smokingall her life. Head brother at age 69 with massive myocardial infarction. 04/06/2019 follow-up visit with LAWN CARE WORKER: She returns for follow-up of her dyspnea [...] chest pain recently. 10/12/2019 follow-up visit with LAWN CARE WORKER: She returns for six-month follow-up. She reports [...] unspecified whether stage 3a or 3b CKD ([facility]) Plan/Recommendations: Her dyspnea on exertion is [...] in the past that was evaluated by disability examiner in the [facility] area where she previously lived. I [...] This note is dictated and transcribed using [employer] Direct Software. Pesticide Applicator variancesmay occur. Despite proofreading, typographical errors may [...] 10/16/2021 added in this encounter Care Teams Shuttle Hand Relationship Specialty Start Date End Date Karrie Tompkins MD PCP - General Family Medicine 11/21/18 01/19/24 documented as of this encounter
[2024-04-12 01:08] LABS: Glucose Point of Care 113 mg/dl (65-105)
[2024-04-12] MEDS: ACETAMINOPHEN 325 MG TABLET 650 MG PO ×2 (02:17→20:58)
[2024-04-12] MEDS: LORATADINE 10 MG TABLET PO ×2 (02:21→20:58)
[2024-04-12 06:31] LABS: Mean Corpuscular HGB Conc 31.9 g/dl (32-36); Mean Corpuscular Hemoglobin 31.3 pg (26-34); Mean Corpuscular Volume 98.1 fl (80-100); Mean Platelet Volume 9.5 fl (7.4-10.4); Platelet Count Result 219 k/mm3 (150-375); Red Blood Count 2.14 M/mm3 (4.2-5.4); Red Cell Distribution Width 14.5 % (11.5-14.5)
[2024-04-12 06:39] LABS: Glucose Point of Care 99 mg/dl (65-105)
[2024-04-12 06:40] LABS: Hemoglobin 6.7 g/dL (12.0-15.0)
[2024-04-12 06:54] LABS: Alanine Aminotransferase 9 U/L (6-35); Albumin Level 2.6 g/dL (3.5-5.1); Alkaline Phosphatase 51 U/L (38-126); Anion Gap 4 mmol/L (4-12); Aspartate Amino Transferase 20 U/L (14-36); Bilirubin,Total 0.4 mg/dL (0.2-1.3); Blood Urea Nitrogen 13 mg/dL (7-17); Carbon Dioxide 29 mmol/L (22-30); Chloride 95 mmol/L (98-107); Estimated Glomerular Filt Rate 20; Glucose 98 mg/dL (65-110); Magnesium 1.9 mg/dL (1.6-2.3); Potassium 3.3 mmol/L (3.4-5.0); Sodium 128 mmol/L (137-145)
[2024-04-12] MEDS: PRAVASTATIN SODIUM 20 MG TABLET 40 MG PO (09:26)
[2024-04-12] MEDS: FAMOTIDINE 10 MG TABLET PO (09:26)
[2024-04-12] MEDS: CHOLECALCIFEROL 1,000 UNITS TABLET 2000 UNITS PO ×2 (09:26→17:41)
--- NOTE | 2024-04-12 11:38 | PCOTNOTE ---
Attempted OT evaluation. Pt. has femoral line that was placed on 04/09. Therapy orders will be discharged until pt. is medically stable. MD to reorder when pt. is stable and femoral line is removed.
[2024-04-12 11:53] LABS: Glucose Point of Care 122 mg/dl (65-105)
--- NOTE | 2024-04-12 12:38 | P.PNNP_ITS ---
Progress Note: A&P Assessment and Plan (1) JAE (acute kidney injury): Code(s): N17.9 - Acute kidney failure, unspecified Status: Acute Assessment and Plan: * as noted since admission * suspect multifactorial etiology: * prerenal factors * relative hypotension * contrast exposure (CT with contrast on 04/04/24) * LENNIE-I use prior to admission * relative anemia * other (?) * evaluation to date noted: * urine electrolytes prerenal * urine eosinophils negative * UA without evidence of infection * CPK normal * renal utrasound okay * repeat CT of A/P still notes contrast present in kidneys * Urine output 25 yesterday and 200 overnight. * s/p non tunneled left femoral temporary HD catheter placement on 04/09/23 * Dialysis finished yesterday without event. * Volume status looks okay. * Electrolytes look okay today. * Uremia seems to be much better. * Dialysis again tomorrow or Saturday depending on what Dr. Reyna thinks. (2) Chronic kidney disease, stage IV (severe): Code(s): N18.4 - Chronic kidney disease, stage 4 (severe) Status: Acute Assessment and Plan: * baseline creatinine runs ~ 1.8 - 2.3mg/dl * due hypertension, diabetes, and age-related change with contributions with previous use of NSAIDs (3) Metabolic acidosis: Code(s): E87.20 - Acidosis, unspecified Status: Acute Assessment and Plan: * CO2 has improved to above normal * Bicarbonate discontinued (4) Hyponatremia: Code(s): E87.1 - Hypo-osmolality and hyponatremia Status: Acute Assessment and Plan: * chronic issues at baseline * likely worsened by JAE/ARF * Sodium level seems to be at a plateau around 130. (5) GI bleed: Code(s): K92.2 - Gastrointestinal hemorrhage, unspecified Status: Acute Assessment and Plan: * reported history of vomiting blood [employer] * known history of Barrettt's esophagus * Hgb dropped since admission * GI following: * s/p EGD - no active bleeding with Ferrell's esophagus * on PPI * No active bleeding * Hemoglobin dropped to 6.7 this morning. Repeat pending per hospitalist. (6) Colitis: Code(s): K52.9 - Noninfective gastroenteritis and colitis, unspecified Status: Acute Assessment and Plan: * as noted by admission CT of A/P * GI recommendations noted * off antibiotics * advance diet as tolerated (7) Chronic anemia: Code(s): D64.9 - Anemia, unspecified Status: Chronic Assessment and Plan: * probably related to CKD * acute worsening noted since admission due to GI bleed * Getting SANDRA * Hemoglobin stable (8) Hypertension: Code(s): I10 - Essential (primary) hypertension Status: Acute Assessment and Plan: * BP variable recently * Systolic crept up overnight. Now it is into the 160s and 170s. Will add amlodipine Will continue to follow. Subjective Date/time seen: 04/12/24 12:38 Interval history: The patient feels better. More interactive today. Exam Narrative: General: elderly but somewhat ill-appearing female in NAD Heart: normal S1 and S2; no rub or gallop Lungs: clear bilaterally Abdomen: soft, mild TTP, nondistended, positive bowel sounds Extremities: no cyanosis or clubbing; no edema Skin: No rash Objective Data Vital Signs Vital Signs: Vital Signs - 24 hr 04/11/24 15:55 04/11/24 18:16 04/11/24 20:00 Temperature 98.4 F 97.5 F L Pulse Rate 92 82 Respiratory Rate 20 16 Blood Pressure 155/65 H 166/63 H Pulse Oximetry 99 98 Oxygen Delivery Room Air 04/11/24 20:20 Temperature 97.9 F Pulse Rate 87 Respiratory Rate 16 Blood Pressure 150/54 H Pulse Oximetry 99 Oxygen Delivery Intake/Output Intake/Output: Intake & Output 04/09/24 04/10/24 04/11/24 04/12/24 23:59 23:59 23:59 23:59 Intake Total 240 1105 1180 Output Total 0 125 1175 200 Balance 0 115 -70 980 Meds/Results Medications: Active Medications Generic Name Dose Route Start Last Admin Trade Name Freq PRN Reason Stop Dose Admin Acetaminophen 650 mg 04/04/24 12:10 04/12/24 02:17 Acetaminophen 325 Mg Tablet PO 650 mg Q4H PRN Administration Mild Pain (1-3) or Fever Artificial Tears 1 drop 04/04/24 20:15 Artificial Tears Ophth Soln 15 Ml Bottle EACH EYE Q4H PRN Dry Eye(S) Calcitriol 0.25 mcg 04/06/24 09:00 04/10/24 09:02 Calcitriol 0.25 Mcg Capsule BY MOUTH 0.25 mcg [id number] JUAN PABLO Administration Dextrose 12.5 gm 04/04/24 21:51 Dextrose 50% 25 Gm/50 Ml Syringe IV PUSH PRN PRN Hypoglycemia Protocol Famotidine 10 mg 04/10/24 09:00 04/12/24 09:26 Famotidine 10 Mg Tablet PO 10 mg DAILY JUAN PABLO Administration Glucagon 1 mg 04/04/24 21:51 Glucagon For Inj 1 Mg Vial IM PRN PRN Hypoglycemia Protocol Glucose 15 gm 04/04/24 21:51 Glucose Oral Gel 15 Gm Of Glucse In 37.5 Gm Tube PO PRN PRN Hypoglycemia Protocol Dextrose 1,000 mls @ 100 mls/hr 04/04/24 21:51 Dextrose 5% 1,000 Ml IVPB PRN PRN Hypoglycemia Protocol Albumin Human 50 mls @ 999 mls/hr 04/09/24 11:16 Albutein IVPB 05/09/24 11:15 Q10M PRN HYPOTENSION Latanoprost 1 drop 04/05/24 09:00 04/12/24 09:31 Latanoprost 0.005% Op Soln 2.5 Ml Btl EACH EYE Not Given DAILY JUAN PABLO Loratadine 10 mg 04/04/24 20:25 04/12/24 02:21 Loratadine 10 Mg Tablet PO 10 mg QAM PRN Administration allergy symptoms Ondansetron HCl 4 mg 04/04/24 12:10 04/11/24 16:07 Ondansetron Inj 4 Mg/2 Ml Vial IV PUSH 4 mg Q4H PRN Administration Nausea Pravastatin Sodium 40 mg 04/05/24 09:00 04/12/24 09:26 Pravastatin Sodium 20 Mg Tablet PO 40 mg DAILY JUAN PABLO Administration Vitamin D 2,000 units 04/05/24 09:00 04/12/24 09:26 Cholecalciferol 1,000 Units Tablet PO 2,000 units BID JUAN PABLO Administration Radiology Results: ITS Impressions Renal Ultrasound 04/06/24 11:46 Impression: Unremarkable ultrasound of the kidneys. Cholelithiasis and gallbladder sludge incidentally noted. Abdomen/Pelvis CT 04/06/24 19:19 IMPRESSION: Left basilar infiltrate with a small right-sided pleural effusion, an interval change from 04/04/2023. Marked delayed excretion within the bilateral kidneys, consistent with patient's history. Fluid distention of the stomach, extending to the proximal jejunum consistent with patient's history Mural thickening within the rectosigmoid colon with multiple diverticula and trace surrounding inflammatory change, similar in appearance to examination dated 04/04/2024. No drainable fluid collections or gross perforation is noted. Interval development of significant anasarca and retroperitoneal inflammatory change. Brain MRI 04/08/24 17:05 IMPRESSION: 1. Normal aging brain. Chest X-Ray 04/10/24 08:29 Impression: 1: No acute cardiopulmonary disease. Labs Labs: Laboratory Results - last 24 hr 04/12/24 04/12/24 04/12/24 00:27 06:23 06:36 WBC 11.0 H RBC 2.14 L Hgb 6.7 L* Hct 21.0 L MCV 98.1 MCH 31.3 MCHC 31.9 L RDW 14.5 Plt Count 219 MPV 9.5 Sodium 128 L Potassium 3.3 L Chloride 95 L Carbon Dioxide 29 Anion Gap 4 BUN 13 D Creatinine 2.37 H Estim Creat Clear Calc Not Reportable Estimated GFR 20 L Glucose 98 POC Capillary Glucose 113 H 99 Calcium 8.0 L Magnesium 1.9 Total Bilirubin 0.4 AST 20 ALT 9 Alkaline Phosphatase 51 Total Protein 5.0 L Albumin 2.6 L 04/12/24 11:51 WBC RBC Hgb Hct MCV MCH MCHC RDW Plt Count MPV Sodium Potassium Chloride Carbon Dioxide Anion Gap BUN Creatinine Estim Creat Clear Calc Estimated GFR Glucose POC Capillary Glucose 122 H Calcium Magnesium Total Bilirubin AST ALT Alkaline Phosphatase Total Protein Albumin
[2024-04-12 12:39] LABS: Hematocrit 22.4 % (37.0-47.0); Hemoglobin 7.2 g/dL (12.0-15.0)
[2024-04-12] MEDS: amLODIPine BESYLATE 2.5 MG TABLET PO (13:08)
--- NOTE | 2024-04-12 13:51 | PCPTNOTE ---
Pt. had femoral line placed on 04/09; DC orders at this time
[2024-04-12 14:00] VITALS: BP 134/80; PULSE 85; RESP 16; TEMP 36.4; O2SAT 97
[2024-04-12 14:28] LABS: Toxigenic C. Diff NEGATIVE (NEGATIVE)
--- OUTSIDE RECORDS SUMMARY | 2024-04-12 16:30 | XMS_ITS | Patient Health Summary ---
Author Organization [facility] [employer] Address [address] [place] [address] Care Team Providers Care Accounting Bookkeeper Name Role Phone Karrie Phillips MD Primary Care Provider [phone] Note from [facility],non-owned Affiliates and Associated Physician Practices is amultiple site organization consisting of ambulatory clinics and hospital sitesin [place], [place], [place] and [place]. This disclosure is being madepursuant to the Care Everywhere program and may not contain all information available regarding this patient. Last updated 17.[facility] [employer] Allergies * Cyclobenzaprine * Eggs * Fluoxetine [...] / 24 hours. * saline nasal spray ([place]; [place]) 0.65 % nasal spray(Started 02/19/2022) [place] 1 (one) spray into each nostril as [...] and heating? Not hard at all 06/04/2022 [facility] Emma of Occupat ional Health - Occupational Stress [...] lb 3.2 oz) 06/04/2023 2:02 P M BIG DATA PLATFORM ARCHITECT Height 154.9 cm (5' 1 ) 12/04/2022 2:47 PM CDT Body Mass Index 28.57 12/04/2022 2:47 PM CDT Medical Devices Implanted Type Area Olap Developer Device Identifier Shelf Expiration Date Model / Serial / Lot Jean Bone Void 10ml Dbm Grftn Algrf Ptty Implanted:Qty: 1 on 06/04/2022 by Deon Taylor MD at [facility] N/A: Spine [employer] 05/04/2025 [id number] / / [id number] 90mm Rods Implanted:Qty: 2 on 06/04/2022 by Deon Taylor MD at [facility] N/A: Spine Synthes Spine [id number] / / Jean Bone Void 10ml Dbm Grftn Algrf Ptty Implanted:Qty: 1 on 06/04/2022 by Deon Taylor MD at [facility] N/A: Spine [employer] Inc 05/04/2025 [id number] / / [id number] Graft Bone Canc 4-9.5mm 15cc Frzdr Chp Implanted:Qty: 1 on 06/04/2022 by Deon Taylor MD at [facility] N/A: Spine [employer] 02/26/2027 [id number] / / [id number] Graft Bone Canc 4-9.5mm 30cc Algrf Frzdr Implanted:Qty: 1 on 06/04/2022 by Deon Taylor MD at [facility] N/A: Spine [employer] 12/27/2025 [id number] / / [id number] 3.5 X 14mm Screw Implanted:Qty: 4 on 06/04/2022 by Deon Taylor MD at [facility] N/A: Spine Synthes Spine [id number] / / 4.0x 20mm Screw Implanted:Qty: 2 on 06/04/2022 by Deon Taylor MD at [facility] N/A: Spine [employer] Spine [id number] / / 5.0 X 24mm Screw Implanted:Qty: 2 on 06/04/2022 by Deon Taylor MD at [facility] N/A: Spine [employer]ynthe[employer] Spine [id number] / / 4.5 X 26mm Screw Implanted:Qty: 2 on 06/04/2022 by Deon Taylor MD at [facility] N/A: Spine [employer]ynthes Spine [id number] / / Screw Caps Implanted:Qty: 10 on 06/04/2022 by Deon Taylor MD at [facility] N/A: Spine [employer] Spine [id number] / / Procedures * XR CERVICAL SPINE [...] 06/21/2022) Performed for Coffee ground emesis * PA ESOPHAGEAL CAPSULE ENDOSCOPY(Performed 06/21/2022) Performed for Coffee ground emesis * PA ED EGD FLEX TRANSORAL DX(Performed 06/21/2022) Performed [...] closed fractures of facial bone, initial encounter ([facility]) * GLUCOSE - POINT OF [...] SPINE 2 OR 3VW (06/04/2023 1:57 PM BIG DATA PLATFORM ARCHITECT) Only the most recent of7 resultswithin the time period is included. Anatomical Region Laterality Modality Spine Radiographic Vivian ging 06/04/2023 1:57 PM [employer] DATA PLATFORM ARCHITECT Impressions 06/04/2023 2:28 PM [employer] DATA PLATFORM ARCHITECT IMPRESSION: Redemonstration of posterior instrumented spinal fusion hardware of C4-T2 with unchanged alignment. Report dictated by Joey Herman MD, (residential energy auditor). I, Petar Spears MD have personally reviewed and interpreted this examination/study. > Interpreting Provider: Petar Spears MD on 06/04/2023 2:28 PM Narrative 06/04/2023 2:28 PM [employer]AT[employer] ARCHITECT PROCEDURE: ??XR CERVICAL SPINE 2 OR 3VW, DATE/TIME OF EXAM: ??06/04/2023 1:57 PM, LOCATION ??[facility] INDICATION: Z98.1: [...] 3VW, DATE/TIME OF EXAM: 41:57 PM, LOCATION [facility] INDICATION: Z98.1: [...] Report dictated by Joey Herman MD, (residential energy auditor). Petar Narvaez MD have personally reviewed and [...] MD on 07/18/2022 11:31 AM Lyla Blackwell COMPLIANCE SPEC-INDUSTRIAL ARTS TEACHER DIAGNOSTIC IMAG ING ORDERABLES * (ABNORMAL) CBC W/O DIFFERENTIAL (06/23/2022 3:47 AM CDT) Only the most recent of11 resultswithin the time period is included. WBC 7.7 3.5 - 10.5 10? 3 /uL 06/23/2022 4:17 AM CDT [facility] RBC 2.66(L) 3.80 - 5.20 10? 6 /uL 06/23/2022 4:17 AM CDT [facility] Hemoglobin 8.0(L) 12.0 - 15.6 g/dL 06/23/2022 4:17 AM [facility] Hematocrit 24.2(L) 35.0 - 45.0 % 06/23/2022 4:17 AM [facility] MCV 91.0 80.7 - 98.3 fL 06/23/2022 4:17 AM [facility] MCH 30.1 26.7 - 34.0 pg 06/23/2022 4:17 AM [facility] MCHC 33.1 30.8 - 35.9 g/dL 06/23/2022 4:17 AM [facility] RDW-SD 45.0 36.0 - 50.0 fL 06/23/2022 4:17 AM [facility] RDW-CV 13.7 11.2 - 14.8 % 06/23/2022 4:17 AM [facility] Platelet Count 305 150 - 400 10? 3 /uL 06/23/2022 4:17 AM [facility] MPV 9.7 9.4 - 12.9 fL 06/23/2022 4:17 AM [facility] nRBC Absolute 0.00 0 10? 3 /uL 06/23/2022 4:17 AM [facility] nRBC Auto 0.0 0 /100 WBC 06/23/2022 4:17 AM [facility] Blood BLOOD SPECIMEN / Unknown Lab Venipuncture / Unknown 06/23/2022 3:47 AM CDT 06/23/2022 4:10 AM CDT Ori Iyer PA-C LAB - HEMATOLOGY OR DERABLES [facility] [address] [place] [phone], [facility] [phone] * (ABNORMAL) BASIC METABOLIC PANEL (CALCIUM TOTAL) (06/23/2022 3:06 AM CDT) Only the most recent of10 resultswithin the time period is included. BUN 10 7 - 26 mg/dL 06/23/2022 4:38 AM [facility] Creatinine 1.09(H) 0.56 - 0.96 mg/dL 06/23/2022 4:38 AM [facility] Sodium 131(L) 136 - 145 mmol/L 06/23/2022 4:38 AM [facility] Potassium 4.2 3.5 - 4.5 mmol/L 06/23/2022 4:38 AM [facility] Chloride 100 98 - 107 mmol/L 06/23/2022 4:38 AM [facility] CO2 22 22 - 29 mmol/L 06/23/2022 4:38 AM [facility] Glucose 111 70 - 115 mg/dL 06/23/2022 4:38 AM [facility] Calcium 8.2(L) 8.4 - 10.2 mg/dL 06/23/2022 4:38 AM [facility] Anion Gap 13 8 - 18 06/23/2022 4:38 AM [facility] BUN/Creatinine Ratio 9 7 - 23 06/23/2022 4:38 AM [facility] Osmolality Calculated 272 270 - 300 mOsm/kg 06/23/2022 4:38 AM [facility] eGFR by CKD-EPI 54(L) >=90 mL/min/1.7 3 m2 06/23/2022 4:38 AM [facility] Blood BLOOD SPECIMEN / Unknown Lab Venipuncture / Unknown 06/23/2022 3:06 AM CDT 06/23/2022 4:03 AM T Anabell Hernandez PA-C LAB - CHEMISTRY ORD ERABLES [facility] [address] [place] [address], [facility] [phone] * MAGNESIUM BLOOD (06/23/2022 3:06 AM CDT) Only the most recent of6 resultswithin the time period is included. Magnesium 2.3 1.6 - 2.6 mg/dL 06/23/2022 4:41 AM [facility] Blood BLOOD SPECIMEN / Unknown Lab Venipuncture / Unknown 06/23/2022 3:06 AM CDT 06/23/2022 4:03 AM CDT Anabell Hernandez PA-C LAB - CHEMISTRY ORD ERABLES Performing Organization Address City/[facility]/ZIP Co de Phone Number [facility] [address] [place] [phone], [facility] [phone] * GLUCOSE - POINT OF CARE (06/22/2022 4:11 PM CDT) Only the most recent of28 resultswithin the time period is included. Glucose WB/POC 105 70 - 115 mg/dL 06/22/2022 4:12 PM CDT [facility] Specimen Type Arterial 06/22/2022 4:12 PM CDT [facility] Blood BLOOD SPECIMEN / Unknown 06/22/2022 4:11 PM CDT 06/22/2022 4:12 PM CDT Abeba Will DO LAB - POINT OF CARE ORDERABLES Performing Organization Address [facility]/ZIP Co de Phone Number [address] [address], [place] [phone] * (ABNORMAL) RENAL FUNCTION PANEL (06/22/2022 2:34 AM CDT) Only the most recent of2 resultswithin the time period is included. BUN 13 7 - 26 mg/dL 06/22/2022 3:29 AM [facility] Creatinine 1.07(H) 0.56 - 0.96 mg/dL 06/22/2022 3:29 AM [facility] Sodium 132(L) 136 - 145 mmol/L 06/22/2022 3:29 AM T [facility] Potassium 3.8 3.5 - 4.5 mmol/L 06/22/2022 3:29 AM [facility] Chloride 99 98 - 107 mmol/L 06/22/2022 3:29 AM [facility] CO2 25 22 - 29 mmol/L 06/22/2022 3:29 AM T [facility] Glucose 126(H) 70 - 115 mg/dL 06/22/2022 3:29 AM T [facility] Albumin 2.8(L) 3.4 - 5.0 g/dL 06/22/2022 3:29 AM [facility] Calcium 8.5 8.4 - 10.2 mg/dL 06/22/2022 3:29 AM [facility] Phosphorus 2.8(L) 2.9 - 5.1 mg/dL 06/22/2022 3:29 AM [facility] Anion Gap 12 8 - 18 06/22/2022 3:29 AM [facility] BUN/Creatinine Ratio 12 7 - 23 06/22/2022 3:29 AM [facility] Osmolality Calculated 276 270 - 300 mOsm/kg 06/22/2022 3:29 AM [facility] eGFR by CKD-EPI 55(L) >=90 mL/min/1.7 3 m2 06/22/2022 3:29 AM [facility] Blood BLOOD SPECIMEN / Unknown Lab Venipuncture / Unknown 06/22/2022 2:34 AM CDT 06/22/2022 3:02 AM CDT Ori Iyer PA-C LAB - CHEMISTRY ORD ERABLES [facility] [address] [place] [phone], [facility] [phone] * CORTISOL BLOOD AM (06/22/2022 2:34 AM CDT) Only the most recent of4 resultswithin the time period is included. 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 ??The PM measurements of cortisol run approximately one-half to one-third of the AM values. Ori Iyer PA-C LAB - CHEMISTRY ORD ERABLES [facility] [address] [place] [address], [facility] [phone] * PATHOLOGY TISSUE (06/21/2022 4:40 PM CDT) Case Report Surgical Pathology Report ? Case: [id number] ? Authorizing Provider: ??Carmen Morales MD ? Collected: ? 06/21/2022 04:40 PM ? Ordering Location: ? [facility] ?Received: ?06/22/2022 08:59 AM ? Pathologist: ? Hansa Gusman MD ? Specimen: ?Small Bowel, small bowel biopsy r/o celiac ? 06/25/2022 2:27 PM CDT [facility] Final Diagnosis Small intestine, small bowel, biopsy (A): - No histopathologic abnormality - Intact villous and crypt architecture without increased intraepithelial lymphocytes 06/25/2022 2:27 PM CDT [facility] Microscopic Description and Comment Microscopic examination substantiates the final diagnosis. 06/25/2022 2:27 PM T [facility] Clinical History The patient is a 72-year-old woman presented with coffee-ground emesis who underwent upper GI endoscopy. 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 Duodenal bulb erythema, biopsied for evaluation of celiac disease. 06/25/2022 2:27 PM T [facility] Gross Description The requisition and specimen(s) are identified with the patient's name Kandace Cole. Received in formalin, specimen A , are 5 pink-freeman tissues, 0.3-0.9 cm in greatest dimension and 2.3 x 0.3 x 0.2 cm in aggregate, submitted in toto in cassette A1. DF 06/25/2022 2:27 PM T [facility] Disclaimer The performance characteristics [...] attending (teaching) pathologist. 06/25/2022 2:27 PM CDT [facility] Embedded Images 06/25/2022 2:27 PM T [facility] Resection without Tumor SMALL BOWEL RESECTION SPECIMEN / Unknown 06/21/2022 4:40 PM CDT 06/22/2022 8:59 AM CDT Comment:Pre-op diagnosis: Coffee ground emesis Carmen Morales MD LAB - PATHOLOGY/CYTO LOGY ORDERABLES [facility] [address] [phone] * EGD (06/21/2022 4:24 PM CDT) Report [...] Procedure Code(s): ? --- Professional --- ? 01426, Esophagogastroduode noscopy, flexible, transoral; with biopsy, ? single or multiple Diagnosis Code(s): ?--- Professional --- ?K22.70, Ferrell's esophagus without dysplasia ?K92.0, Hematemesis CPT copyright 2019 [employer]. All rights reserved. The codes documented in this report are preliminary and upon track grinder review may be revised to meet current compliance requirements. Carmen Morales, 06/21/2022 5:01:11 PM Note Initiated On: 06/21/2022 4:24 PM Number of Addenda: 0 ? [facility] ? [address] [place] [address] [facility] 06/21/2022 4:24 PM CDT Abeba Will DO GI PROCEDURE ORDERAB LES [facility] * CARDIAC EKG ORDER (06/21/2022 [...] 10.5 10? 3 /uL 06/21/2022 2:59 AM [facility] RBC 2.77(L) 3.80 - 5.20 10? 6 /uL 06/21/2022 2:59 AM [facility] Hemoglobin 8.3(L) 12.0 - 15.6 g/dL 06/21/2022 2:59 AM [facility] Hematocrit 25.9(L) 35.0 - 45.0 % 06/21/2022 2:59 AM [facility] MCV 93.5 80.7 - 98.3 fL 06/21/2022 2:59 AM [facility] MCH 30.0 26.7 - 34.0 pg 06/21/2022 2:59 AM [facility] MCHC 32.0 30.8 - 35.9 g/dL 06/21/2022 2:59 AM [facility] RDW-SD 46.8 36.0 - 50.0 fL 06/21/2022 2:59 AM [facility] RDW-CV 13.8 11.2 - 14.8 % 06/21/2022 2:59 AM [facility] Platelet Count 415(H) 150 - 400 10? 3 /uL 06/21/2022 2:59 AM [facility] MPV 9.6 9.4 - 12.9 fL 06/21/2022 2:59 AM [facility] nRBC Absolute 0.00 0 10? 3 /uL 06/21/2022 2:59 AM [facility] nRBC Auto 0.0 0 /100 WBC 06/21/2022 2:59 AM [facility] Neutrophils % 68.7 35.0 - 70.0 % 06/21/2022 2:59 AM [facility] Lymphocytes % 17.2(L) 20.0 - 43.0 % 06/21/2022 2:59 AM [facility] Monocytes % 10.7 5.0 - 13.0 % 06/21/2022 2:59 AM [facility] Eosinophils % 2.3 0.0 - 6.0 % 06/21/2022 2:59 AM [facility] Basophil % 0.6 0.0 - 2.0 % 06/21/2022 2:59 AM [facility] Neutrophils Absolute 5.47 1.60 - 7.00 10? 3 /uL 06/21/2022 2:59 AM [facility] Lymphocyte Absolute 1.37 1.10 - 3.90 10? 3 /uL 06/21/2022 2:59 AM [facility] Monocytes Absolute 0.85 0.26 - 1.07 10? 3 /uL 06/21/2022 2:59 AM [facility] Eosinophils Absolute 0.18 0.00 - 0.47 10? 3 /uL 06/21/2022 2:59 AM [facility] Basophils Absolute 0.05 0.00 - 0.08 10? 3 /uL 06/21/2022 2:59 AM [facility] Immature Granulocytes % 0.5 0.0 - 1.0 % 06/21/2022 2:59 AM [facility] Immature Granulocytes Absolute 0.04 06/21/2022 2:59 AM [facility] Blood BLOOD SPECIMEN / Unknown Lab Venipuncture / Unknown 06/21/2022 2:03 AM CDT 06/21/2022 2:39 AM T Deepa Georges MD LAB - HEMATOLOGY ORD ERABLES [facility] [address] [place] [address], [facility] [phone] * (ABNORMAL) COMPREHENSIVE METABOLIC PANEL (06/21/2022 2:03 AM [facility]) Only the most recent of3 resultswithin the time period is included. BUN 14 7 - 26 mg/dL 06/21/2022 3:05 AM [facility] Creatinine 1.11(H) 0.56 - 0.96 mg/dL 06/21/2022 3:05 AM [facility] Sodium 134(L) 136 - 145 mmol/L 06/21/2022 3:05 AM [facility] Potassium 4.2 3.5 - 4.5 mmol/L 06/21/2022 3:05 AM [facility] Chloride 96(L) 98 - 107 mmol/L 06/21/2022 3:05 AM [facility] CO2 25 22 - 29 mmol/L 06/21/2022 3:05 AM [facility] Glucose 54(L) 70 - 115 mg/dL 06/21/2022 3:05 AM [facility] Calcium 9.5 8.4 - 10.2 mg/dL 06/21/2022 3:05 AM [facility] Protein Total 6.0 6.0 - 8.3 g/dL 06/21/2022 3:05 AM [facility] Albumin 3.3(L) 3.4 - 5.0 g/dL 06/21/2022 3:05 AM [facility] Bilirubin Total 0.7 0.2 - 1.2 mg/dL 06/21/2022 3:05 AM [facility] Alkaline Phosphatase 62 40 - 150 U/L 06/21/2022 3:05 AM [facility] ALT 10 5 - 55 U/L 06/21/2022 3:05 AM [facility] AST 15 5 - 34 U/L 06/21/2022 3:05 AM [facility] Anion Gap 17 8 - 18 06/21/2022 3:05 AM [facility] BUN/Creatinine Ratio 13 7 - 23 06/21/2022 3:05 AM [facility] Osmolality Calculated 276 270 - 300 mOsm/kg 06/21/2022 3:05 AM [facility] Albumin/Globulin Ratio 1.2 1.1 - 2.3 06/21/2022 3:05 AM [facility] eGFR by CKD-EPI 53(L) >=90 mL/min/1.7 3 m2 06/21/2022 3:05 AM [facility] Blood BLOOD SPECIMEN / Unknown Lab Venipuncture / Unknown 06/21/2022 2:03 AM CDT 06/21/2022 2:39 AM CDT Deepa Georges MD LAB - CHEMISTRY CHELO QUIGLEY [facility] Organization Address City/State/ZIP Co de Phone Number [facility] [address] [place] [address], [facility] [phone] * (ABNORMAL) URINALYSIS REFLEX TO MICROSCOPIC NO CULTURE (06/21/2022 12:50 AM T) Only the most recent of2 resultswithin the time period is included. Color UA Yellow Straw, Yellow 06/21/2022 1:04 AM [facility] Clarity UA Clear Clear 06/21/2022 1:04 AM [facility] Specific [place] UA 1.048(H) 1.005 - 1.030 06/21/2022 1:04 AM [facility] pH UA 7.0 5.0 - 8.0 pH 06/21/2022 1:04 AM [facility] Protein UA Negative Negative 06/21/2022 1:04 AM [facility] Glucose UA Negative Negative 06/21/2022 1:04 AM [facility] Ketone UA 1+(A) Negative 06/21/2022 1:04 AM [facility] Bilirubin UA Negative Negative 06/21/2022 1:04 AM [facility] Blood UA Negative Negative 06/21/2022 1:04 AM [facility] Nitrite UA Negative Negative 06/21/2022 1:04 AM [facility] Leukocyte Esterase Trace(A) Negative 06/21/2022 1:04 AM [facility] Urobilinogen UA Negative Negative mg/dL 06/21/2022 1:04 AM CDT [facility] RBC UA 0-2 None Seen, 0-2, 3-5 /HPF 06/21/2022 1:04 AM CDT [facility] WBC UA 0-5 None Seen, 0-5 /HPF 06/21/2022 1:04 AM CDT [facility] Squamous Epithelial Cells UA 0-2 None Seen, 0-2, 3-5 /HPF 06/21/2022 1:04 AM CDT [facility] Urine URINE SPECIMEN OBTAINED BY CLEAN CATCH PROCEDURE / Unknown Collection / Unknown 06/21/2022 12:50 AM CDT 06/21/2022 12:57 AM CDT Narrative [facility] - 06/21/2022 1:04 AM CDT Jacki Balbuena PA-C LAB - URINALYSIS OR DERABLES [address] [address], [place] [phone] * (ABNORMAL) HEMOGLOBIN (06/20/2022 10:18 PM CDT) Hemoglobin 8.5(L) 12.0 - 15.6 g/dL 06/20/2022 10:42 PM CDT [facility] Blood BLOOD SPECIMEN / Unknown Lab Venipuncture / Unknown 06/20/2022 10:18 PM CDT 06/20/2022 10:39 PM CDT Deepa Georges MD LAB - HEMATOLOGY ORD ERABLES [address] [address], [place] [phone] * B-TYPE NATRIURETIC PEPTIDE (06/20/2022 10:18 PM CDT) BNP 99 <100 pg/mL 06/20/2022 11:17 PM CDT [facility] Comment: A decision threshold of 100 pg/mL [...] Deepa Georges MD LAB - CHEMISTRY CHELO QUILGEY Performing Organization Address [facility] de Phone Number [facility] [address] [place] [address], [facility] [phone] * CT ANGIO ABDOMEN PELVIS (06/20/2022 5:05 [...] > Dictated by Sherlyn Hopkins DO (residential energy auditor). I, Chaim Martins have personally reviewed and interpreted this examination/study. > Interpreting Provider: Chaim Martins on 06/20/2022 10:47 PM Narrative 06/20/2022 10:47 PM CDT PROCEDURE: ??CT ANGIO ABDOMEN PELVIS, DATE/TIME OF EXAM: ??06/20/2022 5:05 PM, LOCATION ??[facility] INDICATION: R10.12: Abdominal pain, left upper [...] PELVIS, DATE/TIME OF EXAM: 06/20/2022 5:05PM, LOCATION [facility] INDICATION: R10.12: Abdominal pain, left upper [...] > Dictated by Sherlyn Hopkins DO (residential energy auditor). I, Chaim Martins have personally reviewed and interpreted this examination/study. > Interpreting Provider: Chaim Martins on 06/20/2022 10:47 PM Adolph Mckinney MD CT ORDERABLES * XR CHEST 2VW (06/20/2022 3:02 PM CDT) Anatomical Region Laterality Modality Chest Radiographic Vivian ging 06/20/2022 3:13 PM CDT Narrative 06/20/2022 3:49 PM CDT PROCEDURE: ??XR CHEST 2VW, DATE/TIME OF EXAM: ??06/20/2022 3:03 PM, LOCATION [facility] INDICATION: R06.02: Shortness of breath ADDITIONAL [...] Report dictated by Yasir Pierre MD (residential energy auditor). Haroldo Narvaez MD have personally reviewed and interpreted this examination/study. > Interpreting Provider: Haroldo Ball MD on 06/20/2022 3:49 PM Procedure Note Haroldo Ball MD - 06/20/2022 PROCEDURE: XR CHEST 2VW, DATE/TIME OF EXAM: 06/20/2022 3:03 PM, LOCATION [facility] INDICATION: R06.02: Shortness of breath ADDITIONAL [...] Report dictated by Yasir Pierre MD (residential energy auditor). Haroldo Narvaez MD have personally reviewed and interpreted this examination/study. > Interpreting Provider: Haroldo Ball MD on 06/20/2022 3:49 PM Adolph Mckinney MD DIAGNOSTIC IMAGING ORDERABLES * PT-INR [facility] (06/20/2022 2:05 PM CDT) PT 13.4 12.1 - 14.8 Seconds 06/20/2022 2:48 PM CDT [facility] INR 1.0 See Comment 06/20/2022 2:48 PM CDT [facility] Comment:The suggested therap eutic range for standard coumadin (warfarin) therapy is an INR of 2.0-3.0. For high-risk patients (Mechanical Mitral Valve Prosthesis, etc.), the suggested prophylactic therapeutic range is an INR of 2.5-3.5. Blood BLOOD SPECIMEN / Unknown Venipuncture / Unknown 06/20/2022 2:05 PM CDT 06/20/2022 2:07 PM CDT Adolph Mckinney MD LAB - COAGULATION ORDERABLES Performing Organization Address [facility]/ZIP Co de Phone Number [address] [phone], [facility] [phone] * TYPE + SCREEN PANEL (06/20/2022 2:05 PM CDT) Only the most recent of3 resultswithin the time period is included. Antibody Screen NEG 2:53 PM CDT [facility] BLOOD BANK LAB ABO Rh A POS 06/20/2022 2:53 PM CDT [facility] BLOOD BANK LAB Blood Bank BLOOD SPECIMEN / Unknown Venipuncture / Unknown 06/20/2022 2:05 PM CDT 06/20/2022 2:08 PM CDT Adolph Mckinney MD LAB - BLOOD BANK O RDERABLES Performing Organization Address [facility] Co de Phone Number [facility] BLOOD BANK LAB [address] [place] [phone], [facility] [phone] * LIPASE BLOOD (06/20/2022 2:05 PM CDT) Lipase 18 8 - 78 U/L 06/20/2022 2:50 PM CDT [facility] Blood BLOOD SPECIMEN / Unknown Venipuncture / Unknown 06/20/2022 2:05 PM CDT 06/20/2022 2:23 PM CDT Narrative [facility] - 06/20/2022 2:50 PM CDT Lipase results from the [employer] Alinity analyzer may not be comparable with other methodologies. Adolph Mckinney MD LAB - CHEMISTRY OR DERABLES [address] [address], [place] [phone] * LACTIC ACID BLOOD (06/20/2022 2:05 PM CDT) [facility] Lactic Acid-Stat 1.1 <=2.0 mmol/L 06/20/2022 2:48 PM CDT [facility] Blood BLOOD SPECIMEN / Unknown Venipuncture / Unknown 06/20/2022 2:05 PM CDT 06/20/2022 2:23 PM CDT Adolph Mckinney MD LAB - CHEMISTRY OR DERABLES Performing Organization Address [facility]/ZIP Co de Phone Number [address] [address], [place] [phone] * TROPONIN-I HIGH SENSITIVE REFLEX 1HOUR (06/20/2022 1:05 PM CDT) [facility] Troponin I High Sensitive 8 <=14 ng/L 06/20/2022 1:59 PM CDT [facility] Delta Troponin I HS 06/20/2022 1:59 PM CDT [facility] Comment:Delta value intentio anil not calculated. Baseline to 1 hour specimen collection interval exceeded. Blood BLOOD SPECIMEN / Unknown Venipuncture / Unknown 06/20/2022 1:05 PM CDT 06/20/2022 1:23 PM CDT Jacki Balbuena PA-C LAB - CHEMISTRY ORD ERABLES [address] [address], [place] [phone] * TROPONIN-I HIGH SENSITIVE BASELINE + 1HR (06/20/2022 9:49 AM CDT) [facility] Troponin I High Sensitive 7 <=14 ng/L 06/20/2022 10:39 AM CDT [facility] Blood BLOOD SPECIMEN / Unknown Venipuncture / Unknown 06/20/2022 9:49 AM CDT 06/20/2022 9:55 AM CDT Jacki Balbuena PA-C LAB - CHEMISTRY ORD ERABLES Performing Organization Address City/[facility]/ZIP Co de Phone Number [facility] [address] [place] [address], [facility] [phone] * EKG 12-LEAD (06/20/2022 9:40 AM CDT) Only the most recent of2 resultswithin the time period is included. Ventricular Rate 88 BPM SL MUSE Atrial Rate 88 BPM [facility] MUSE P-R Interval 176 ms [facility] MUSE QRS Duration ms 70 ms [facility] MUSE Q-T Interval ms 348 ms [facility] MUSE QTC Calculation (Bezet) 421 ms [facility] MUSE Calculated P Howell 75 degrees SL MUSE Calculated R Howell 55 degrees [facility] MUSE Calculated T Howell 74 degrees [facility] MUSE Interpretation EKG NORMAL SINUS RHYTHM NORMAL ECG WHEN COMPARED WITH ECG OF 15-FEB-2022 00:55, VENT. RATE HAS INCREASED by 15 bpm Confirmed by BRIEN KEARNS MD ([id number]) on 06/20/2022 1:46:36 PM [facility] MUSE 06/20/2022 9:40 AM CDT 06/20/2022 1:46 PM CDT Jacki Balbuena PA-C ECG ORDERABLES Performing Organization Address [facility] Co de Phone Number [facility] MUSE * (ABNORMAL) PHOSPHORUS BLOOD (06/08/2022 2:13 AM BIG DATA PLATFORM ARCHITECT) Only the most recent of3 resultswithin the time period is included. Phosphorus 2.5(L) 2.9 - 5.1 mg/dL 06/08/2022 3:12 AM BIG DATA PLATFORM ARCHITECT [facility] Blood BLOOD SPECIMEN / Unknown Lab Venipuncture / Unknown 06/08/2022 2:13 AM BIG DATA PLATFORM ARCHITECT 06/08/2022 2:44 AM BIG DATA PLATFORM ARCHITECT Ama Gonzalez MD LAB - CHEMISTRY ORDERABLES [facility] [address] [place] [address], [place] [phone] * TRANSFUSE RED BLOOD CELL LEUKOREDUCED UNIT(S) (06/06/2022 12:20 PM BIG DATA PLATFORM ARCHITECT) Ama Gonzalez MD NURSING - BLOOD PROD TRANSFUSION * PREPARE (CROSSMATCH) RBC UNIT(S), 1 Units (06/06/2022 9:36 AM BIG DATA PLATFORM ARCHITECT) Unit Description AS1 LR PRBC [facility] BLOOD [facility]ANK LAB Unit ABO A [facility] B[facility]OD [facility] LAB Unit Rh POS [facility] Product Number R02 [facility] B LOOD BANK LAB Unit Donor # [id number] [facility]OD [facility] LAB Unit Status transfused [facility] BLO OD [facility]ANK LAB Product Code [id number] [facility] BLO OD BANK LAB Blood Type Barcode 6200 [facility] BLOOD [facility]ANK LAB Expiration Date [id number] S BLOOD BANK LAB Blood Bank BLOOD SPECIMEN / Unknown 06/04/2022 6:44 AM BIG DATA PLATFORM ARCHITECT Ama Gonzalez MD LAB - BLOOD BANK ORDERABLES Performing Organization Address City/[facility]/ZIP Co de Phone Number [facility]OD [facility] LAB [address] [place] [address], [facility] [phone] * PTH INTACT W/O CALCIUM (06/06/2022 3:07 AM BIG DATA PLATFORM ARCHITECT) Pathologist [facility] PTH Intact 72.1 8.0 - 77.0 pg/mL 06/06/2022 4:04 AM BIG DATA PLATFORM ARCHITECT [facility] Blood BLOOD SPECIMEN / Unknown Lab Venipuncture / Unknown 06/06/2022 3:07 AM BIG DATA PLATFORM ARCHITECT 06/06/2022 3:32 AM BIG DATA PLATFORM ARCHITECT Deon Taylor MD LAB - CHEMISTRY CELESTEE SORAIDA [facility] [address] [place] [address], [place] [phone] * HEMOGLOBIN A1C (06/06/2022 3:07 AM BIG DATA PLATFORM ARCHITECT) Only the most recent of2 resultswithin the [...] to evaluate metabolic control in patients. Reference: [place] [employer] Association, Standards of Care in Diabetes -2020 In patients 70 years and older consider HbA1c target range of 7.0-7.5% (Reference: Oswaldo Liz et al. JAMDA. 2012) The Sebia assay for the measurement of HbA1c is a National Glycohemoglobin Standardization Program (NGSP) certified method. Blood BLOOD SPECIMEN / Unknown Lab Venipuncture / Unknown 06/06/2022 3:07 AM BIG DATA PLATFORM ARCHITECT 06/06/2022 3:28 AM [facility] Ama Gonzalez MD LAB - CHEMISTRY ORDERABLES Performing Organization Address [facility] de Phone Number [facility] [address] [place] [address], [facility] [phone] * VITAMIN D 25-HYDROXY (06/06/2022 3:07 AM [facility]) Pathologist [facility] Vitamin D, 25 Hydroxy 53.0 30.0 - [...] Lab Venipuncture / Unknown 06/06/2022 3:07 AM BIG DATA PLATFORM ARCHITECT 06/06/2022 3:29 AM BIG DATA PLATFORM ARCHITECT Deon Taylor MD LAB - CHEMISTRY CHELO QUIGLEY Performing Organization Address [facility]/ZIP Co de Phone Number [facility] [address] [place] [address], [facility] [phone] * FOLATE (06/06/2022 3:07 AM BIG DATA PLATFORM ARCHITECT) Folate 9.4 7.0 - 31.4 ng/mL 06/06/2022 4:35 AM BIG DATA PLATFORM ARCHITECT [facility] Blood BLOOD SPECIMEN / Unknown Lab Venipuncture / Unknown 06/06/2022 3:07 AM BIG DATA PLATFORM ARCHITECT 06/06/2022 3:29 AM BIG DATA PLATFORM ARCHITECT Ama Gonzalez MD LAB - CHEMISTRY ORDERABLES Performing Organization Address [facility]/ZIP Co de Phone Number [facility] [address] [place] [address], [place] [phone] * VITAMIN B12 (06/06/2022 3:07 AM BIG DATA PLATFORM ARCHITECT) Vitamin B12 382 213 - 816 pg/mL 06/06/2022 4:35 AM BIG DATA PLATFORM ARCHITECT [facility] Blood BLOOD SPECIMEN / Unknown Lab Venipuncture / Unknown 06/06/2022 3:07 AM BIG DATA PLATFORM ARCHITECT 06/06/2022 3:29 AM BIG DATA PLATFORM ARCHITECT Ama Gonzalez MD LAB - CHEMISTRY ORDERABLES [address] [address], [place] [phone] * (ABNORMAL) IRON + TRANSFERRIN PANEL (06/06/2022 3:07 AM BIG DATA PLATFORM ARCHITECT) Iron 20(L) 40 - 150 ug/dL 06/06/2022 [...] Lab Venipuncture / Unknown 06/06/2022 3:07 AM BIG DATA PLATFORM ARCHITECT 06/06/2022 3:25 AM BIG DATA PLATFORM ARCHITECT Ama Gonzalez MD LAB - CHEMISTRY ORDERABLES [address] [address], [place] [phone] * FERRITIN (06/06/2022 3:07 AM BIG DATA PLATFORM ARCHITECT) Ferritin 94 13 - 204 ng/mL 06/06/2022 4:10 AM BIG DATA PLATFORM ARCHITECT [facility] Blood BLOOD SPECIMEN / Unknown Lab Venipuncture / Unknown 06/06/2022 3:07 AM BIG DATA PLATFORM ARCHITECT 06/06/2022 3:25 AM BIG DATA PLATFORM ARCHITECT Ama Gonzalez MD LAB - CHEMISTRY ORDERABLES [address] [address], [place] [phone] * FL JOSÉ LUIS SURGERY (06/04/2022 11:30 AM BIG DATA PLATFORM ARCHITECT) Narrative [facility] RADIOLOG[facility] - 06/04/2022 12:52 PM BIG DATA PLATFORM ARCHITECT Fluoroscopy was used for this exam in the OR. Please see the Operative report. Deon Taylor MD FLUOROSCOPY ORDERABL ES [facility] RAD[facility] * ETT LINE PERFORMABLE (06/04/2022 9:09 AM BIG DATA PLATFORM ARCHITECT) Narrative Marcos Rojas Anes Asst - 06/04/2022 9:09 AM BIG DATA PLATFORM ARCHITECT Marcos Rojas Anes Asst ? 06/04/2022 ??9:11 AM Endotracheal Tube Placement: ? Patient Location: OR. Intubation Event Date/Time: ??06/04/2022 7:44 AM Procedure: intubation ([id number]). Procedure Section: ?? Sedation: under general anesthesia. [...] * ARTERIAL LINE PERFORMABLE (06/04/2022 9:08 AM BIG DATA PLATFORM ARCHITECT) Narrative Marcos Rojas Anes Asst - 06/04/2022 9:08 AM BIG DATA PLATFORM ARCHITECT Marcos Rojas Anes Asst ? 06/04/2022 ??9:08 AM Arterial Line Placement Procedure Note Patient Location: OR. Procedure: Arterial Line ([id number]). Procedure Section ?? Indications: continuous blood pressure [...] * SODIUM URINE RANDOM (02/17/2022 2:08 PM BIG DATA PLATFORM ARCHITECT) Sodium Urine 55 Not Established mmol/L 02/17/2022 2:30 PM BIG DATA PLATFORM ARCHITECT [facility] Urine URINE SPECIMEN OBTAINED BY CLEAN CATCH PROCEDURE / Unknown Collection / Unknown 02/17/2022 2:08 PM BIG DATA PLATFORM ARCHITECT 02/17/2022 2:13 PM BIG DATA PLATFORM ARCHITECT Radha Flores PA-C LAB - URINE CHEM ISTRY ORDERABLES Performing Organization Address [facility]/ZIP Co de Phone Number [address] [address], [place] [phone] * OSMOLALITY URINE (02/17/2022 2:08 PM BIG DATA PLATFORM ARCHITECT) Osmolality Urine 234 50 - 1,200 mOsm/kg 02/17/2022 3:23 PM BIG DATA PLATFORM ARCHITECT [facility] Urine URINE SPECIMEN OBTAINED BY CLEAN CATCH PROCEDURE / Unknown Collection / Unknown 02/17/2022 2:08 PM BIG DATA PLATFORM ARCHITECT 02/17/2022 2:13 PM BIG DATA PLATFORM ARCHITECT Narrative [facility] - 02/17/2022 3:23 PM BIG DATA PLATFORM ARCHITECT QRY Radha Flores PA-C LAB - URINE CHEM ISTRY ORDERABLES Performing Organization Address City/[facility]/ZIP Co de Phone Number [address] [address], [place] [phone] * MRI CERVICAL SPINE WO CONTRAST (02/16/2022 7:19 PM BIG DATA PLATFORM ARCHITECT) Anatomical Region Laterality Modality Pelvis Magnetic Resonan ce 02/18/2022 1:46 PM BIG DATA PLATFORM ARCHITECT Impressions 02/18/2022 2:03 PM BIG DATA PLATFORM ARCHITECT IMPRESSION: 1. Degenerative changes of the spine [...] 02/18/2022 2:03 PM Narrative 02/18/2022 2:03 PM BIG DATA PLATFORM ARCHITECT PROCEDURE: ??MRI CERVICAL SPINE WO CONTRAST, DATE/TIME OF EXAM: ??02/16/2022 7:20 PM, LOCATION ??[facility] INDICATION: M50.30: Degeneration of cervical intervertebral [...] CONTRAST, DATE/TIME OF EXAM:02/16/2022 7:20 PM, LOCATION [facility] INDICATION: M50.30: Degeneration of cervical intervertebral [...] TSH REFLEX FREE T4 (02/16/2022 7:57 AM BIG DATA PLATFORM ARCHITECT) Only the most recent of2 resultswithin the time period is included. TSH 1.522 0.350 - 4.940 uIU/mL 02/16/2022 9:01 AM BIG DATA PLATFORM ARCHITECT [facility] Blood BLOOD SPECIMEN / Unknown Lab Venipuncture / Unknown 02/16/2022 7:57 AM BIG DATA PLATFORM ARCHITECT 02/16/2022 8:15 AM BIG DATA PLATFORM ARCHITECT Dagoberto Ordoñez MD LAB - CHEMISTRY ORDERABLES [facility] [address] [address], [facility] [phone] * CT CERVICAL SPINE WO CONTRAST (02/15/2022 10:41 PM BIG DATA PLATFORM ARCHITECT) Anatomical Region Laterality Modality Spine Computed Tomogra phy 02/16/2022 2:09 AM BIG DATA PLATFORM ARCHITECT Impressions 02/16/2022 2:29 AM BIG DATA PLATFORM ARCHITECT IMPRESSION: 1.No acute fracture or traumatic malalignment [...] 02/16/2022 2:29 AM Narrative 02/16/2022 2:29 AM BIG DATA PLATFORM ARCHITECT PROCEDURE: ??CT CERVICAL SPINE WO CONTRAST, DATE/TIME OF EXAM: ??02/15/2022 10:41 PM, LOCATION ??[facility] INDICATION: S02.92XA: Multiple closed fractures of facial bone, initial encounter ([facility]) ADDITIONAL CLINICAL INFORMATION: Ordering Provider [...] CONTRAST, DATE/TIME OF EXAM:02/15/2022 10:41 PM, LOCATION [facility] INDICATION: S02.92XA: Multiple closed fractures of facial bone, initial encounter ([facility]) ADDITIONAL CLINICAL INFORMATION: Ordering Provider [...] left C3-C5 facets, right C3-C4 facets, and C3-A4garoswi processes. DISCS: Osseous fusion of the C3-C5 [...] in moderate spinal canal stenosis at the C5-D6jnypc and mild spinal canal stenosis at the C3-C4, C6-C7, and C7-T1 levels. 3.Severe bilateral neuroforaminal narrowing at the C5-C6 level. > Interpreting Provider: Barbara Wallace DR on 02/16/2022 2:29 AM Radha Flores PA-C CT ORDERABLES * SARS-COV-2 (COVID-19)+INFLU A+B PCR RAPID (02/15/2022 3:07 PM BIG DATA PLATFORM ARCHITECT) COVID-19 PCR Not detected Not detected 02/16/20 3:59 PM BIG DATA PLATFORM ARCHITECT [facility] Influenza A Rapid WENDI Not Detected Not Detected 02/15/2022 3:59 PM BIG DATA PLATFORM ARCHITECT [facility] Influenza B WENDI Rapid Not Detected Not Detected 02/15/2022 3:59 PM BIG DATA PLATFORM ARCHITECT [facility] Microbiology SPECIMEN FROM NASOPHARYNGEAL STRUCTURE / Unknown Collection / Unknown 02/15/2022 3:07 PM BIG DATA PLATFORM ARCHITECT 02/15/2022 3:10 PM BIG DATA PLATFORM ARCHITECT Narrative [facility] - 02/15/2022 3:59 PM BIG DATA PLATFORM ARCHITECT Influenza assay performed by [employer]. [...] acid amplification assay performance was validated by [facility]. This test has been authorized by the [...] Burk MD LAB - MICROBIOLOGY O RDERABLES [facility] [address] [place] [address], [facility] [phone] * VAS CAROTID DUPLEX BILATERAL (02/15/2022 1:56 PM BIG DATA PLATFORM ARCHITECT) Anatomical Region Laterality Modality Neck Intravascular Ul trasound 02/15/2022 12:0 2 PM BIG DATA PLATFORM ARCHITECT Narrative Procedure Note Adolph Pineda MD - 02/16/2022 Dagoberto Ordoñez MD VASCULAR LAB ORD ERABLES * ECHO COMPLETE (02/15/2022 11:27 AM BIG DATA PLATFORM ARCHITECT) Anatomical Region Laterality Modality Chest Echo 02/15/2022 10:2 8 AM BIG DATA PLATFORM ARCHITECT Narrative Procedure Note Corey Flowers MD - 02/15/2022 Dagoberto Ordoñez MD ECHOCARDIOGRAPHY RADIANT * TROPONIN I (02/14/2022 11:55 PM BIG DATA PLATFORM ARCHITECT) Troponin I 0.027 <0.032 ng/mL 02/15/2022 12:31 AM BIG DATA PLATFORM ARCHITECT [facility] Blood BLOOD SPECIMEN / Unknown Venipuncture / Unknown 02/14/2022 11:55 PM BIG DATA PLATFORM ARCHITECT 02/14/2022 11:58 PM BIG DATA PLATFORM ARCHITECT Justo Sparrow MD LAB - CHEMISTRY CHELO QUIGLEY [facility] [address] [place] [address], [facility] [phone] * XR CHEST 1VW PORTABLE (02/14/2022 11:25 PM BIG DATA PLATFORM ARCHITECT) Anatomical Region Laterality Modality Chest Radiographic Vivian ging 02/14/2022 11:2 4 PM BIG DATA PLATFORM ARCHITECT Narrative 02/15/2022 9:10 AM BIG DATA PLATFORM ARCHITECT PROCEDURE: ??XR CHEST 1VW PORTABLE, DATE/TIME OF EXAM: ??02/14/2022 11:25 PM, LOCATION ??[facility] INDICATION: R55: Syncope and collapse ADDITIONAL [...] > Dictated by Sushil Herrera MD (residential energy auditor). Tony Narvaez MD have personally reviewed and interpreted this examination/study. > Interpreting Provider: Tony Hansen MD on 02/15/2022 9:10 AM Procedure Note Tony Hansen MD - 02/15/2022 PROCEDURE: XR CHEST 1VW PORTABLE, DATE/TIME OF EXAM: 02/14/2022 11:25PM, LOCATION [facility] INDICATION: R55: Syncope and collapse ADDITIONAL [...] > Dictated by Sushil Herrera MD (residential energy auditor). Tony Narvaez MD have personally reviewed and interpreted this examination/study. > Interpreting Provider: Tony Hansen MD on 29:10 AM Justo Sparrow MD DIAGNOSTIC IMAGING O RDERABLES * MRI SPINE CERVICAL WITH AND WITHOUT CONTRAST (11/11/2009) Anatomical Region Laterality Modality Spine Other Dionisio Ryan MD MR ORDERABLES Care Teams Accounting Bookkeeper Relationship Specialty Start Date End Date Karrie Phillips MD [address] [place] [address] PCP - General 03/13/22
--- OUTSIDE RECORDS SUMMARY | 2024-04-12 16:30 | XMS_ITS | Clinical Summary ---
Author Organization [facility] Address [address] [place] [address] Care Team Providers Care Product Assembler Name Role Phone Karrie Phillips MD Primary Care Provider [phone] Source Comments [facility],non-owned Affiliates and Associated Physician Practices is amultiple site organization consisting of ambulatory clinics and hospital sitesin [place], [place], [place] and [place]. This disclosure is being madepursuant to the Care Everywhere program and may not contain all information available regarding this patient. Last updated 17.[facility] Allergies Active Allergy Reactions Criticality Noted Date [...] 24 hours. 02/19/2022 Active saline nasal spray ([place]; Baby [place]) 0.65 % nasal spray [place] 1 (one) spray into each nostril as [...] Immunizations Name Administration Dates Next Due COVID JROJE PRIMARY 18+YR 06/08/2020 DTP 07/18/2011 FLU VACCINE [...] and heating? Not hard at all 06/04/2022 [facility] of Occupat ional Health - Occupational Stress [...] lb 3.2 oz) 06/04/2023 2:02 P M BOXER OPERATOR Height 154.9 cm (5' 1 ) 12/04/2022 2:47 PM CDT Body Mass Index 28.57 12/04/2022 2:47 PM CDT Plan of Treatment Upcoming Encounters Date Type Department Care Team (Late st Contact Info) Description 06/02/2024 1:45 PM BOXER OPERATOR Office Visit [facility] - Orthopedics [address] [place] [address], [facility] [place] [address] Deon Taylor MD [address] [place] [phone] Health Maintenance Due Date Last Done Comments [...] this topic Medical Devices Implanted Type Area Benefit Specialist Device Identifier Shelf Expiration Date Model / Serial / Lot Jean Bone Void 10ml Dbm Grftn Algrf Ptty Implanted:Qty: 1 on 06/04/2022 by Deon Taylor MD at [facility] N/A: Spine [employer] 05/04/2025 [id number] / / [id number] 90mm Rods Implanted:Qty: 2 on 06/04/2022 by Deon Taylor MD at [facility] N/A: Spine Synthes Spine [id number] / / Jean Bone Void 10ml Dbm Grftn Algrf Ptty Implanted:Qty: 1 on 06/04/2022 by Deon Taylor MD at [facility] N/A: Spine [employer] 05/04/2025 [id number] / / [id number] Graft Bone Canc 4-9.5mm 15cc Frzdr Chp Implanted:Qty: 1 on 06/04/2022 by Deon Taylor MD at [facility] N/A: Spine [employer] 02/26/2027 [id number] / / [id number] Graft Bone Canc 4-9.5mm 30cc Algrf Frzdr Implanted:Qty: 1 on 06/04/2022 by Deon Taylor MD at [facility] N/A: Spine [employer] 12/27/2025 [id number] / / [id number] 3.5 X 14mm Screw Implanted:Qty: 4 on 06/04/2022 by Deon Taylor MD at [facility] N/A: Spine Synthes Spine [id number] / / 4.0x 20mm Screw Implanted:Qty: 2 on 06/04/2022 by Deon Taylor MD at [facility] N/A: Spine [employer]ynthes Spine [id number] / / 5.0 X 24mm Screw Implanted:Qty: 2 on 06/04/2022 by Deon Taylor MD at [facility] N/A: Spine [employer]ynthe[employer] Spine [id number] / / 4.5 X 26mm Screw Implanted:Qty: 2 on 06/04/2022 by Deon Taylor MD at [facility] N/A: Spine [employer]ynthe[employer] Spine [id number] / / Screw Caps Implanted:Qty: 10 on 06/04/2022 by Deon Taylor MD at [facility] N/A: Spine [employer]ynthe[employer] Spine [id number] / / Procedures Procedure Name Priority Date/Time Associated Diagnosis Comments BASIC METABOLIC PANEL (CALCIUM TOTAL) AM Draw 06/23/2022 3:06 AM CDT Coffee ground emesis HEMOGLOBIN A1C Routine 06/06/2022 3:07 AM BOXER OPERATOR from Last 3 Months or Most Recently Relevant to Health Maintenance Results * (ABNORMAL) BASIC METABOLIC PANEL (CALCIUM TOTAL) (06/23/2022 3:06 AM T) BUN 10 7 - 26 mg/dL 06/23/2022 4:38 AM [facility] Creatinine 1.09(H) 0.56 - 0.96 mg/dL 06/23/2022 4:38 AM [facility] Sodium 131(L) 136 - 145 mmol/L 06/23/2022 4:38 AM [facility] Potassium 4.2 3.5 - 4.5 mmol/L 06/23/2022 4:38 AM [facility] Chloride 100 98 - 107 mmol/L 06/23/2022 4:38 AM [facility] CO2 22 22 - 29 mmol/L 06/23/2022 4:38 AM [facility] Glucose 111 70 - 115 mg/dL 06/23/2022 4:38 AM [facility] Calcium 8.2(L) 8.4 - 10.2 mg/dL 06/23/2022 4:38 AM [facility] Anion Gap 13 8 - 18 06/23/2022 4:38 AM [facility] BUN/Creatinine Ratio 9 7 - 23 06/23/2022 4:38 AM [facility] Osmolality Calculated 272 270 - 300 mOsm/kg 06/23/2022 4:38 AM [facility] eGFR by CKD-EPI 54(L) >=90 mL/min/1.7 3 m2 06/23/2022 4:38 AM [facility] Blood BLOOD SPECIMEN / Unknown Lab Venipuncture / Unknown 06/23/2022 3:06 AM CDT 06/23/2022 4:03 AM [facility] Anabell Hernandez PA-C LAB - CHEMISTRY ORD ERABLES [facility] [address] [place] [address], [facility] [phone] * HEMOGLOBIN A1C (06/06/2022 3:07 AM BOXER OPERATOR) Hemoglobin A1c 5.3 <=5.6 % 06/06/2022 3:38 PM [facility] Estimated Average Glucose 105 mg/dL 06/06/2022 3:38 PM [facility] Comment: HbA1c Interpretation: Normal : < 5.7% Pre-diabetes: 5.7-6.4% Diabetes: Equal to or greater than 6.5% Test results diagnostic of diabetes should be repeated for confirmation. Treatment target values recommended by ADA and other clinical organizations should be used to evaluate metabolic control in patients. Reference: [place] [employer], Standards of Care in Diabetes -2020 In patients 70 years and older consider HbA1c target range of 7.0-7.5% (Reference: Oswaldo Liz et al. JAMDA. 2012) The Sebia assay for the measurement of HbA1c is a National Glycohemoglobin Standardization Program (NGSP) certified method. Blood BLOOD SPECIMEN / Unknown Lab Venipuncture / Unknown 06/06/2022 3:07 AM BOXER OPERATOR 06/06/2022 3:[address] [facility] Ama Gonzalez MD LAB - CHEMISTRY ORDERABLES [facility] [address] [place] [address], [facility] [phone] from Last 3 Months or Most Recently Relevant to Health Maintenance Advance Directives * Full Code (Latest Code Status on File) Date Activated Date Inactivated Comments 06/20/2022 6:09 PM 06/23/2022 5:59 PM * Full Code Date Activated Date Inactivated Comments 06/04/2022 1:16 PM 06/08/2022 11:04 PM * Full Code Date Activated Date Inactivated Comments 02/15/2022 5:44 AM 02/19/2022 3:38 PM Care Teams Product Assembler Relationship Specialty Start Date End Date Karrie Phillips MD [address] [place] [address] PCP - General 03/13/22
--- OUTSIDE RECORDS SUMMARY | 2024-04-12 16:30 | XMS_ITS | Referral Summary ---
Author Organization [facility] vivit Address [address] [place] [address] Care Team Providers Care Pharmaceutical Specialty Representative Name Role Phone Karrie Phillips MD Primary Care Provider [phone] Source Comments [facility],non-owned Affiliates and Associated Physician Practices is amultiple site organization consisting of ambulatory clinics and hospital sitesin [place], [place], [place] and [place]. This disclosure is being madepursuant to the Care Everywhere program and may not contain all information available regarding this patient. Last updated 17.[facility] vivit Allergies Active Allergy Reactions Criticality Noted Date [...] 24 hours. 02/19/2022 Active saline nasal spray (Peach; Baby Peel) 0.65 % nasal spray [place] 1 (one) spray into each nostril as [...] heating? Not hard at all 06/04/2022 [facility] [place] of Occupat ional Health - Occupational Stress [...] lb 3.2 oz) 06/04/2023 2:02 P M SHAREPOINT NET DEVELOPER Height 154.9 cm (5' 1 ) 12/04/2022 [...] st Contact Info) Description 06/02/2024 1:45 PM SHAREPOINT NET DEVELOPER Office Visit [facility] [address] [place] [address], [place] [address] Deon Taylor MD [address] [place] [id number] Medical Devices Implanted Type Area Primary Clinician Device Identifier Shelf Expiration Date Model / Serial / Lot Jean Bone Void 10ml Dbm Grftn Algrf Ptty Implanted:Qty: 1 on 06/04/2022 by Deon Taylor MD at [facility] N/A: Spine [employer] 05/04/2025 [id number] / / [id number] 90mm Rods Implanted:Qty: 2 on 06/04/2022 by Deon Taylor MD at [facility] N/A: Spine Synthes Spine [id number] / / Jean Bone Void 10ml Dbm Grftn Algrf Ptty Implanted:Qty: 1 on 06/04/2022 by Deon Taylor MD at [facility] N/A: Spine [employer] 05/04/2025 [id number] / / [id number] Graft Bone Canc 4-9.5mm 15cc Frzdr Chp Implanted:Qty: 1 on 06/04/2022 by Deon Taylor MD at [facility] N/A: Spine [employer]ource 02/26/2027 [id number] / / [id number] Graft Bone Canc 4-9.5mm 30cc Algrf Frzdr Implanted:Qty: 1 on 06/04/2022 by Deon Taylor MD at [facility] N/A: Spine [employer] 12/27/2025 [id number] / / [id number] 3.5 X 14mm Screw Implanted:Qty: 4 on 06/04/2022 by Deon Taylor MD at [facility] N/A: Spine Synthes Spine [id number] / / 4.0x 20mm Screw Implanted:Qty: 2 on 06/04/2022 by Deon Taylor MD at [facility] N/A: Spine [employer]ynthes Spine [id number] / / 5.0 X 24mm Screw Implanted:Qty: 2 on 06/04/2022 by Deon Taylor MD at [facility] N/A: Spine [employer]s Spine [id number] / / 4.5 X 26mm Screw Implanted:Qty: 2 on 06/04/2022 by Deon Taylor MD at [facility] N/A: Spine [employer]ynthes Spine [id number] / / Screw Caps Implanted:Qty: 10 on 06/04/2022 by Deon Taylor MD at [facility] N/A: Spine [employer]ynthes Spine [id number] / / Procedures Procedure Name Priority Date/Time Associated Diagnosis Comments BASIC METABOLIC PANEL (CALCIUM TOTAL) AM Draw 06/23/2022 3:06 AM CDT Coffee ground emesis HEMOGLOBIN A1C Routine 06/06/2022 3:07 AM SHAREPOINT NET DEVELOPER from Last 3 Months or Most Recently Relevant to Health Maintenance Results * (ABNORMAL) BASIC METABOLIC PANEL (CALCIUM TOTAL) (06/23/2022 3:06 AM CDT) BUN 10 7 - 26 mg/dL 06/23/2022 4:38 AM [facility] Creatinine 1.09(H) 0.56 - 0.96 mg/dL 06/23/2022 4:38 AM [facility] Sodium 131(L) 136 - 145 mmol/L 06/23/2022 4:38 AM [facility] Potassium 4.2 3.5 - 4.5 mmol/L 06/23/2022 4:38 AM [facility] Chloride 100 98 - 107 mmol/L 06/23/2022 4:38 AM [facility] CO2 22 22 - 29 mmol/L 06/23/2022 4:38 AM [facility] Glucose 111 70 - 115 mg/dL 06/23/2022 4:38 AM [facility] Calcium 8.2(L) 8.4 - 10.2 mg/dL 06/23/2022 4:38 AM [facility] Anion Gap 13 8 - 18 06/23/2022 4:38 AM [facility] BUN/Creatinine Ratio 9 7 - 23 06/23/2022 4:38 AM [facility] Osmolality Calculated 272 270 - 300 mOsm/kg 06/23/2022 4:38 AM [facility] eGFR by CKD-EPI 54(L) >=90 mL/min/1.7 3 m2 06/23/2022 4:38 AM CDT [facility] Blood BLOOD SPECIMEN / Unknown Lab Venipuncture / Unknown 06/23/2022 3:06 AM CDT 06/23/2022 4:03 AM CDT Anabell Hernandez PA-C LAB - CHEMISTRY ORD ERABLES Performing Organization Address [facility]/ZIP Co de Phone Number [facility] [address] [place] [address], [facility] [phone] * HEMOGLOBIN A1C (06/06/2022 3:07 AM SHAREPOINT NET DEVELOPER) Hemoglobin A1c 5.3 <=5.6 % 06/06/2022 3:38 [...] to evaluate metabolic control in patients. Reference: [place] [employer], Standards of Care in Diabetes -2020 In patients 70 years and older consider HbA1c target range of 7.0-7.5% (Reference: Oswaldo Liz et al. JAMDA. 2012) The Sebia assay for the measurement of HbA1c is a National Glycohemoglobin Standardization Program (NGSP) certified method. Blood BLOOD SPECIMEN / Unknown Lab Venipuncture / Unknown 06/06/2022 3:07 AM SHAREPOINT NET DEVELOPER 06/06/2022 3:28 AM SHAREPOINT NET DEVELOPER Ama Gonzalez MD LAB - CHEMISTRY ORDERABLES Performing Organization Address City/[facility]/ZIP Co de Phone Number [facility] [address] [place] [address], [place] [phone] from Last 3 Months or Most Recently Relevant to Health Maintenance Advance Directives * Full Code (Latest Code Status on File) Date Activated Date Inactivated Comments 06/20/2022 6:09 PM 06/23/2022 5:59 PM * Full Code Date Activated Date Inactivated Comments 06/04/2022 1:16 PM 06/08/2022 11:04 PM * Full Code Date Activated Date Inactivated Comments 02/15/2022 5:44 AM 02/19/2022 3:38 PM Care Teams Pharmaceutical Specialty Representative Relationship Specialty Start Date End Date Karrie Phillips MD [address] [place] [address] PCP - General 03/13/22
--- OUTSIDE RECORDS SUMMARY | 2024-04-12 16:30 | XMS_ITS | Encounter Summary ---
Author Organization [facility] Address [address] [place] [address] Care Team Providers Care Paste Mixer Name Role Phone Karrie Phillips MD Primary Care Provider [phone] Encounter Details Date Type Department Care Team (Latest Contact Info) Description 06/04/2023 1:51 PM TAMALE MACHINE FEEDER - 06/04/2023 11:59 PM TAMALE MACHINE FEEDER Hospital Encounter [facility] DIAGNOSTIC [facility] [address] [phone] Deon Taylor MD [address] [place] [address] Discharge Disposition: Home or Self Care Social [...] all 06/04/2022 [facility] [place] of Occupat ional Health - Occupational Stress [...] mouth every evening 06/08/2022 saline nasal spray ([place]; Baby [place]ne) 0.65 % nasal spray [place] 1 (one) spray into each nostril as needed for Dry Nose 15 mL 02/19/2022 vitamin D3 (Cholecalciferol) 10 MCG (400 UNIT) tablet Take 2 (two) tablets by mouth once daily 06/09/2022 documented as of this encounter Plan of Treatment Upcoming Encounters Date Type Department Care Team (Late st Contact Info) Description 06/02/2024 1:45 PM TAMALE MACHINE FEEDER Office Visit [facility] [address] [place] [id number] Deon Taylor MD [facility] [place] [address] documented as of this encounter Procedures Procedure Name Priority Date/Time Associated Diagnosis Comments XR CERVICAL SPINE 2 OR 3VW Routine 06/04/2023 1:57 PM TAMALE MACHINE FEEDER S/P cervical spinal fusion documented in this encounter Results * XR CERVICAL SPINE 2 OR 3VW (06/04/2023 1:57 PM TAMALE MACHINE FEEDER) Anatomical Region Laterality Modality Spine Radiographic Vivian ging 06/04/2023 1:57 PM TAMALE MACHINE FEEDER Impressions 06/04/2023 2:28 PM TAMALE MACHINE FEEDER IMPRESSION: Redemonstration of posterior instrumented spinal fusion hardware of C4-T2 with unchanged alignment. Report dictated by Joey Herman MD, (residential aide). I, Petar Spears MD have personally reviewed and interpreted this examination/study. > Interpreting Provider: Petar Spears MD on 06/04/2023 2:28 PM Narrative 06/04/2023 2:28 PM TAMALE MACHINE FEEDER PROCEDURE: ??XR CERVICAL SPINE 2 OR 3VW, DATE/TIME OF EXAM: ??06/04/2023 1:57 PM, LOCATION ??[facility] INDICATION: Z98.1: S/P cervical spinal fusion [...] 3VW, DATE/TIME OF EXAM: 41:57 PM, LOCATION [facility] INDICATION: Z98.1: S/P cervical spinal fusion [...] Report dictated by Joey Herman MD, (residential aide). I, Petar Spears MD have personally reviewed and interpreted this examination/study. > Interpreting Provider: Petar Spears MD on 06/04/2023 2:28 PM Deon Taylor MD DIAGNOSTIC IMAGING O RDERABLES documented in this encounter Visit Diagnoses Diagnosis S/P cervical spinal fusion Arthrodesis status documented in this encounter Care Teams Paste Mixer Relationship Specialty Start Date End Date Karrie Phillips MD [facility] [place] [address] PCP - General 03/13/22 documented as of this encounter
--- OUTSIDE RECORDS SUMMARY | 2024-04-12 16:30 | XMS_ITS | Data Portability ---
Author Organization [facility] [employer], Main Office Address [address] [place] [address] Care Team Providers Care Mechanical Specialist Name Role Phone FLEX TOMPKINS Primary Care Provider FLEX TOMPKINS Referring Provider [phone] Assessment No assessment recorded. Plan of Treatment Reminders Order Date Submit Date Provider Last Modified By Organization Details Last Modified Time Details Appointments None recorded. Lab uric acid, serum or plasma 2023 024 [facility] (Lab), [address] [place], [address], 4 20:39:00 PTH (parathyroi d hormone), intact, serum or plasma 2023 024 [facility] (Lab), [address] [place], [address], 4 20:41:41 renal function panel, serum 2023 024 [email or web address] (Lab), [address] [place], [address], 4 08:06:44 vitamin D, 25-hydroxy, total, serum 2023 024 [facility] (Lab), [address] [place], [address], 4 07:34:09 protein, total, urine 2023 024 [facility] (Lab), [address] [place], [address], 4 20:34:54 ESR (erythrocyt e sedimentati on rate), blood 2023 024 [facility] (Lab), [address] [place], [address], 4 21:47:07 lipid panel, serum 2023 024 [facility] (Lab), [address] [place], [address], 4 20:38:58 hepatic function panel, serum [email or web address] [place] [address] (Lab), [address] [place], [address], 4 08:06:45 HbA1c (hemoglobin A1c), blood 2023 024 [facility] (Lab), [address] [place], [address], 4 07:33:45 TSH, serum or plasma 2023 024 [facility] (Lab), [address] [place], [address], 4 21:02:31 T4, free, serum 2023 024 [facility] (Lab), [address] [place], [address], 4 20:49:42 CBC w/ auto diff 2023 024 [facility] (Lab), [address] [place], [address], 4 21:50:25 ferritin, serum or plasma 2023 024 [facility] (Lab), [address] [place], [address], 4 21:09:42 iron + total iron-bindin g capacity (TIBC), serum 2023 024 [facility] (Lab), [address] [place], [address], 4 20:37:47 CBC w/ auto diff 2023 024 [facility] (Lab), [address] [place], [address], 4 20:28:05 uric acid, serum or plasma [address] (Lab), [address] [place], [address], 4 16:31:52 glycohemogl obin, total, blood [address] (Lab), [address] [place], [address], 4 16:31:40 Referral dental ceramist referral - Please call patient to schedule an appointment . Thank you. 2023 024 brandon Isaac Jr DPM, [address], [address], [place], [address], 4 13:38:30 Procedures upper endoscopy procedure (EGD) (PROC) - Repeat due 12/23 [email or web address] [place] [address] (Pre-Screen), [address] [place], [address], 4 09:56:17 Surgeries None recorded. Imaging DEXA 2023 024 [facility] (Imaging), [address], [place], [address], 4 18:42:39 XR, hip + pelvis, unilateral 2023 024 [facility] Not available 4 17:43:26 XR, lumbar spine 2023 024 [facility] Not available 4 17:44:21 Medication Orders triamcinolo ne acetonide 0.1 % topical ointment 2023 024 [facility]18520, [address], [place], [place], [id number], 4 15:56:50 OneTouch Verio test strips 2023 024 [facility] #65894, [address], [place], [place], [id number], 4 15:56:51 Ozempic 0.25 mg or 0.5 mg (2 mg/3 mL) subcutaneou s pen injector 2023 024 [facility] #39353, [address], [place], [place], [id number], 4 14:34:29 allopurinol 100 mg tablet 2023 024 [facility] #20475, [address], [place], [place], [id number], 4 16:20:45 Ozempic 0.25 mg or 0.5 mg (2 mg/3 mL) subcutaneou s pen injector 2023 024 [facility] #39079, [address], [place], [place], [id number], 4 16:21:15 carvedilol 12.5 mg tablet 2023 024 [facility]35168, [address], [place], [place], [id number], 16:20:46 gabapentin 300 mg capsule 2023 024 [facility]059, [address], [place], [place], [id number], 16:20:49 Patient TargetsNo targets recorded. 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 Thank you. Referring Physician: Flex Tompkins, Family Medicine, Encounter Date: 08/06/2023 Results Created Date Observation Date Name Description Value Unit Range Abnormal Flag Note LastModifiedBy Organization Detail LastModifiedTime 08/06/19 24 08/06/2023 CBC/C OMPLE TE BLD COUNT W/DIF F white blood cells 10.0 x10'3 /uL 4.2-10 .8 Not Available [facility] (Lab) [address] [place], [address], 08/06/2023 20:28:05 08/06/19 24 08/06/2023 CBC/C OMPLE TE BLD COUNT W/DIF F red blood cells 3.31 x10'6 /uL 3.80-5 .20 low Not Available [facility] (Lab) [address] [place], [address], 08/06/2023 20:28:05 08/06/19 24 08/06/2023 CBC/C OMPLE TE BLD COUNT W/DIF F hemoglobin 10.5 g/dL 12.0-1 5.6 low Not Available [facility] (Lab) [address] [place], [address], 08/06/2023 20:28:05 08/06/19 24 08/06/2023 CBC/C OMPLE TE BLD COUNT W/DIF F hematocrit 32.9 % 35.7-4 5.7 low Not Available [facility] (Lab) [address] [place], [address], 08/06/2023 20:28:05 08/06/19 24 08/06/2023 CBC/C OMPLE TE BLD COUNT W/DIF F mean red cell volume 99.4 fL 82.0-9 9.0 high Not Available [facility] (Lab) [address] [place], [address], 08/06/2023 20:28:05 08/06/19 24 08/06/2023 CBC/C OMPLE TE BLD COUNT W/DIF F mean red cell hemoglobin 31.7 pg 27.0-3 3.0 Not Available [facility] (Lab) [address] [place], [address], 08/06/2023 20:28:05 08/06/19 24 08/06/2023 CBC/C OMPLE TE BLD COUNT W/DIF F mean RBC HGB concentratio n 31.9 g/dL 31.0-3 6.0 Not Available [facility] (Lab) [address] [place], [address], 08/06/2023 20:28:05 08/06/19 24 08/06/2023 CBC/C OMPLE TE BLD COUNT W/DIF F red cell distribution width 14.4 % 11.8-1 5.5 Not Available [facility] (Lab) [address] [place], [address], 08/06/2023 20:28:05 08/06/19 24 08/06/2023 CBC/C OMPLE TE BLD COUNT W/DIF F platelets 298 x10'3 /uL 150-40 0 Not Available [facility] (Lab) [address] [place], [address], 08/06/2023 20:28:05 08/06/19 24 08/06/2023 CBC/C OMPLE TE BLD COUNT W/DIF F mean platelet volume 10.9 fL 9.0-12 .4 Not Available [facility] (Lab) [address] [place], [address], 08/06/2023 20:28:05 08/06/19 24 08/06/2023 CBC/C OMPLE TE BLD COUNT W/DIF F neutrophils 78.2 % 39.0-7 2.0 high Not Available [facility] (Lab) [address] [place], [address], 08/06/2023 20:28:05 08/06/19 24 08/06/2023 CBC/C OMPLE TE BLD COUNT W/DIF F lymphocytes 11.5 % 16.0-4 7.0 low Not Available [facility] (Lab) [address] [place], [address], 08/06/2023 20:28:05 08/06/19 24 08/06/2023 CBC/C OMPLE TE BLD COUNT W/DIF F monocytes 6.7 % 5.0-12 .0 Not Available [facility] (Lab) [address] [place], [address], 08/06/2023 20:28:05 08/06/19 24 08/06/2023 CBC/C OMPLE TE BLD COUNT W/DIF F eosinophils 2.7 % 1.0-7. 0 Not Available [facility] (Lab) [address] [place], [address], 08/06/2023 20:28:05 08/06/19 24 08/06/2023 CBC/C OMPLE TE BLD COUNT W/DIF F basophils 0.3 % 0.0-2. 0 Not Available [facility] (Lab) [address] [place], [address], 08/06/2023 20:28:05 08/06/19 24 08/06/2023 CBC/C OMPLE TE BLD COUNT W/DIF F immature granulocytes 0.6 % 0.00-0 .50 high Not Available [facility] (Lab) [address] [place], [address], 08/06/2023 20:28:05 08/06/19 24 08/06/2023 CBC/C OMPLE TE BLD COUNT W/DIF F neutrophils, absolute count 7.83 x10'3 /uL 1.5-8. 0 Not Available [facility] (Lab) [address] [place], [address], 08/06/2023 20:28:05 08/06/19 24 08/06/2023 CBC/C OMPLE TE BLD COUNT W/DIF F lymphocytes, absolute count 1.15 x10'3 /uL 1.07-3 .43 Not Available [facility] (Lab) [address] [place], [address], 08/06/2023 20:28:05 08/06/19 24 08/06/2023 CBC/C OMPLE TE BLD COUNT W/DIF F monocytes, absolute count 0.67 x10'3 /uL 0.29-0 .99 Not Available [facility] (Lab) [address] [place], [address], 08/06/2023 20:28:05 08/06/19 24 08/06/2023 CBC/C OMPLE TE BLD COUNT W/DIF F eosinophils, absolute count 0.27 x10'3 /uL 0.02-0 .53 Not Available [facility] (Lab) [address] [place], [address], 08/06/2023 20:28:05 08/06/19 24 08/06/2023 CBC/C OMPLE TE BLD COUNT W/DIF F basophils, absolute count 0.03 x10'3 /uL 0.01-0 .08 Not Available [facility] (Lab) [address] [place], [address], 08/06/2023 20:28:05 08/06/19 24 08/06/2023 CBC/C OMPLE TE BLD COUNT W/DIF F immature granulocytes ,absolute 0.06 x10'3 /uL 0.00-0 .05 high Not Available [facility] (Lab) [address] [place], [address], 08/06/2023 20:28:05 08/06/19 24 08/06/2023 CBC/C OMPLE TE BLD COUNT W/DIF F nucleated red blood cells 0.0 % -0 Not Available [facility] (Lab) [address] [place], [address], 08/06/2023 20:28:05 08/06/19 24 08/06/2023 CBC/C OMPLE TE BLD COUNT W/DIF F NRBC# 0.00 x10'3 /uL Not Available [facility] (Lab) [address] [place], [address], 08/06/2023 20:28:05 08/06/19 24 08/06/2023 PROTE IN URINE RANDO M ur prot 10 mg/dL 0.0-11 .9 Not Available [facility] (Lab) [address] [place], [address], 08/06/2023 20:34:54 08/06/19 24 08/06/2023 IRON/ TIBC PANEL total iron binding capacity 260 mcg/d L 265-47 5 low Not Available [facility] (Lab) [address] [place], [address], 08/06/2023 20:40:29 08/06/19 24 08/06/2023 IRON/ TIBC PANEL % transferrin saturation 33 % 20-55 Not Available [facility] (Lab) [address] [place], [address], 08/06/2023 20:40:29 08/06/19 24 08/06/2023 IRON/ TIBC PANEL unsaturated iron bind capacity 175 mcg/d L 126-38 2 Not Available [facility] (Lab) [address] [place], [address], 08/06/2023 20:40:29 08/06/19 24 08/06/2023 IRON/ TIBC PANEL iron 85 mcg/d L 42-175 Not Available [facility] (Lab) [address] [place], [address], 08/06/2023 20:40:29 08/06/19 24 08/06/2023 LIPID PANEL cholesterol 157 mg/dL 140-19 9 NIH ERIC NSUS RECOM MENDA TION FOR ATIYA STERO L: ADULT CHILD LOW RISK: <200 <170 BORDE RLINE : <200- 239 ----- HIGH RISK: >240 >200 Not Available [facility] (Lab) [address] [place], [address], 08/06/2023 20:38:57 08/06/19 24 08/06/2023 LIPID PANEL triglyceride s 251 mg/dL 0-150 high NIH ERIC NSUS REPOR T RECOM MENDA TION FOR TRIGL YCERI RASHEED: ADULT CHILD LOW RISK: <150 ----- BODER LINE: 150-1 99 ----- HIGH RISK: >200 ----- Not Available [facility] (Lab) [address] [place], [address], 08/06/2023 20:38:57 08/06/19 24 08/06/2023 LIPID PANEL HDL cholesterol 40 mg/dL 40- Not Available [facility] (Lab) [address] [place], [address], 08/06/2023 20:38:57 08/06/19 24 08/06/2023 LIPID PANEL [...] WILL NOT BE REPOR ELEAZAR. Not Available [facility] (Lab) [address] [place], [address], 08/06/2023 20:38:57 08/06/19 24 08/06/2023 URIC ACID SERUM uric acid 5.2 mg/dL 2.5-6. 2 Not Available [facility] (Lab) [address] [place], [address], 08/06/2023 20:38:59 08/06/19 24 08/06/2023 COMP MET PANEL /LIVE R sodium 136 mmol/ L 137-14 5 low Not Available [facility] (Lab) [address] [place], [address], 08/06/2023 20:39:24 08/06/19 24 08/06/2023 COMP MET PANEL /LIVE R potassium 6.0 mmol/ L 3.5-5. 1 high Not Available [facility] (Lab) [address] [place], [address], 08/06/2023 20:39:24 08/06/19 24 08/06/2023 COMP MET PANEL /LIVE R chloride 109 mmol/ L 98-107 high Not Available [facility] (Lab) [address] [place], [address], 08/06/2023 20:39:24 08/06/19 24 08/06/2023 COMP MET PANEL /LIVE R carbon dioxide 17 mmol/ L 22-30 low Not Available [facility] (Lab) [address] [place] [place], [address], 08/06/2023 20:39:24 08/06/19 24 08/06/2023 COMP MET PANEL /LIVE R anion gap 16.0 mmol/ L 14-22 Not Available [facility] (Lab) [address] [place], [address], 08/06/2023 20:39:24 08/06/19 24 08/06/2023 COMP MET PANEL /LIVE R glucose 132 mg/dL 70-99 high Not Available [facility] (Lab) [address] [place], [address], 08/06/2023 20:39:24 08/06/19 24 08/06/2023 COMP MET PANEL /LIVE R BUN 48 mg/dL 8-19 high Not Available [facility] (Lab) [address] [place], [address], 08/06/2023 20:39:24 08/06/19 24 08/06/2023 COMP MET PANEL /LIVE R creatinine 2.32 mg/dL 0.66-1 .25 high Not Available [facility] (Lab) [address] [place], [address], 08/06/2023 20:39:24 08/06/19 24 08/06/2023 COMP MET PANEL /LIVE R GFR 21 Refer ence Range : [place] ge GFR Healt hy Adult : >60 [...] calcu lator is avail able on the [facility] websi te: https ://aditi w.wolf cole.o rg/pr rileyess ional s/kdo qi/gf r_cal culat or Not Available [facility] (Lab) [address] [place], [address], 08/06/2023 20:39:24 08/06/1908/06/2023 COMP MET PANEL /LIVE R alkaline phosphatase 77 U/L 38-126 Not Available [facility] (Lab) [address] [place], [address], 08/06/2023 20:39:24 08/06/19 24 08/06/2023 COMP MET PANEL /LIVE R alanine aminotransfe rase 16 U/L 0-35 Not Available [facility] (Lab) [address] [place], [address], 08/06/2023 20:39:24 08/06/19 24 08/06/2023 COMP MET PANEL /LIVE R aspartate aminotransfe rase 21 U/L 15-37 Not Available [facility] (Lab) [address] [place], [address], 08/06/2023 20:39:24 08/06/19 24 08/06/2023 COMP MET PANEL /LIVE R bilirubin, total 0.40 mg/dL 0.20-1 .30 Not Available [facility] (Lab) [address] [place], [address], 08/06/2023 20:39:24 08/06/19 24 08/06/2023 COMP MET PANEL /LIVE R bilirubin, conjugated (direct) 0.00 mg/dL 0.00-0 .30 Not Available [facility] (Lab) [address] [place], [address], 08/06/2023 20:39:24 08/06/19 24 08/06/2023 COMP MET PANEL /LIVE R biliurubin,u ncong. (indirect) 0.20 mg/dL 0.00-1 .1 Not Available [facility] (Lab) [address] [place], [address], 08/06/2023 20:39:24 08/06/19 24 08/06/2023 COMP MET PANEL /LIVE R calcium 9.5 mg/dL 8.4-10 .2 Not Available [facility] (Lab) [address] [place], [address], 08/06/2023 20:39:24 08/06/19 24 08/06/2023 COMP MET PANEL /LIVE R total protein 6.7 g/dL 6.3-8. 2 Not Available [facility] (Lab) [address] [place], [address], 08/06/2023 20:39:24 08/06/19 24 08/06/2023 COMP MET PANEL /LIVE R albumin 4.4 g/dL 3.0-4. 4 Not Available [facility] (Lab) [address] [place], [address], 08/06/2023 20:39:24 08/06/19 24 08/06/2023 COMP MET PANEL /LIVE R globulin 2.3 g/dL 2.6-4. 2 low Not Available [facility] (Lab) [address] [place], [address], 08/06/2023 20:39:24 08/06/19 24 08/06/2023 COMP MET PANEL /LIVE R A/G ratio 1.9 ratio 1.0-2. 0 Not Available [facility] (Lab) [address] [place], [address], 08/06/2023 20:39:24 08/06/19 24 08/06/2023 PHOSP HORUS phosphorus 4.7 mg/dL 2.5-4. 5 high Not Available [facility] (Lab) [address] [place], [address], 08/06/2023 20:39:28 08/06/19 24 08/06/2023 PARAT HY.HO RM(PT H)INT ACT-W /O CA intact parathyroid hormone 89.6 pg/mL 24.0-7 8.0 high Pleas e note new refer ence range effec tive 04/27 . Not Available [facility] (Lab) [address] [place], [address], 08/06/2023 20:41:41 08/06/19 24 08/06/2023 VITAM IN D 25-HY DROXY [id number] 73.8 NG/mL 30-100 Vitam in D Statu s: Defic ient: <20 ng/mL Insuf ficie nt: 20-29 ng/mL Suffi cient : 30-10 0 ng/mL Not Available [facility] (Lab) [address] [place], [address], 08/06/2023 20:45:55 08/06/19 24 08/06/2023 T4 FREE free T4 1.07 NG/dL 0.78-2 .19 Not Available [facility] (Lab) [address] [place], [address], 08/06/2023 20:49:42 08/06/19 24 08/06/2023 TSH thyroid-stim ulating hormone 2.890 uIU/m L 0.465- 4.680 Not Available [facility] (Lab) [address] [place], [address], 08/06/2023 21:02:31 08/06/19 24 08/06/2023 PATRICIA TIN ferritin 148 NG/mL 11.1-2 64 Not Available [facility] (Lab) [address] [place], [address], 08/06/2023 21:09:42 08/06/19 24 08/06/2023 HEMOG LOBIN A1C HA1C 6.9 % 4.0-6. 0 high Diabe clif Scree los Crite lindy: <5.7% Consi stent with absen ce of diabe clif 5.7-6 .4% Consi stent with incre ased risk for diabe cilf (pred iabet es) >OR=6 .5% Consi stent with diabe clif REFER ENCE: Diabe clif Care 2015, 39(Woody ppl.1 ):s13 -s22 Not Available [facility] (Lab) [address] [place], [address], 08/06/2023 21:14:10 08/06/19 24 08/06/2023 SEDIM ENTAT ION RATE erythrocyte sedimentatio n rate 67 mm/HR 0-20 high Not Available [facility] (Lab) [address] [place], [address], 08/06/2023 21:47:07 11/15/19 23 11/01/2022 CT, sinus es, w/o contr ast No observ ation record ed. [address], [place], [address], 11/14/2022 14:14:11 12/15/19 audio gram + tympa nogra m No observ ation record ed. [email or web address] [facility] [address] [facility] [address], [place], [address], 12/17/2022 08:34:14 01/01/20 23 05/28/2018 audio gram No observ ation record ed. [email or web address] [facility] [address] [facility] [address], [place], [address], 12/31/2022 14:41:49 05/06/19 24 05/06/2023 MAMMO , scree los, bilat eral No observ ation record ed. [address] [facility], [place], [address], 08/06/2023 15:31:58 08/08/19 24 08/08/2023 XR, hip + pelvi s, unila teral No observ ation record ed. [address], [place], [address], 08/13/2023 11:48:32 08/08/19 24 08/08/2023 XR, lumba r spine No observ ation record ed. [address] [address], [place], [address], 08/13/2023 11:48:33 08/14/19 24 08/14/2023 DEXA No observ ation record ed. [email or web address] [address], [place], [address], 08/15/2023 14:48:57 04/05/19 25 04/04/2024 XR, chest , 1 view No observ ation record ed. [email or web address] [address] [address], [place], [address], 04/07/2024 09:34:45 04/06/19 25 04/06/2024 US, bladd er No observ ation record ed. [address] [address], [place], [address], 04/07/2024 09:34:59 04/07/19 25 04/06/2024 US, renal No observ ation record ed. [email or web address] [address] [address], [place], [address], 04/07/2024 23:05:39 04/08/19 25 04/08/2024 imagi ng/di agnos tic resul t No observ ation record ed. [address] [address], [place], [address], 04/08/2024 09:44:04 04/08/19 25 04/08/2024 imagi ng/di agnos tic resul t No observ ation record ed. [address] [address], [place], [address], 04/08/2024 18:15:28 04/10/19 25 04/10/2024 imagi ng/di agnos tic resul t No observ ation record ed. [address] [address], [place], [address], 04/10/2024 09:42:28 Result Notes None recorded. Problems Name Problem SNOMED Code Status Onset Date Resolution Date Notes Provider Name and Address Organization Details Recorded Time Hyponatre [facility] 10856974 Active 2022 Flex Tompkins MD [address], [address], [place], [address] , [place] [facility] 3 17:39:01 Serotonin syndrome 953849245 Active 2022 Flex Tompkins MD [address], [address], [place], [address] , [place] [facility] 3 08:36:46 Degenerat ion of cervical intervert ebral disc 62851661 Active 2022 Flex Tompkins MD [address], [address], [place], [address] , [place] [facility] 3 08:37:29 Dysfuncti on of left eustachia n tube 22514720414 88158 Active 2022 Flex Tompkins MD [address], [address], [place], [address] , [facility] 3 14:51:33 Dizziness 700734328 Active 2022 Flex Tompkins MD [address], [address], [place], [address] , [facility] 3 14:24:25 Gout 84168061 Active 2022 Flex Tompkins MD [address], [address], [place], [address] , [place] [facility] 3 14:25:32 Chronic sinusitis 56405051 Active 2022 Noah Rodrigues MD [address], [facility] [address], [place], [address] , [facility] 3 15:46:10 Sensorine ural hearing loss 60660560 Active 2022 Sherrie Rosas RN null, [facility] 3 15:16:32 Benign paroxysma l positiona l vertigo 893343833 Active 2022 Sherrie Rosas RN null, [facility] 3 15:17:40 Benign paroxysma l positiona l vertigo 925630594 Active 2022 Noah Rodrigues MD [address] [address], [place], [address] , [facility] 3 15:22:05 Degenerat ion of lumbar intervert ebral disc 52177897 Active 2023 Flex Tompkins MD [address] [address], [place], [address] , [facility] 4 15:51:27 Pain of left hip joint 40724124676 9100 Active 2023 Flex Tompkins MD [address] [facility], [address] [address], [place], [address] , [facility] 4 15:51:36 Eruption 351587535 Active 2023 Flex Tompkins MD [address] [address], [place], [address] , [facility] 4 15:52:42 Lumbar spondylos is 319625600 Active 2023 Flex Tompkins MD [address] [address], [place], [address] , [facility] 4 11:49:02 Osteopeni a 062939240 Active 2023 DEXA 08/22 Flex Tompkins MD [address] [address], [place], [address] , [facility] 4 07:44:45 Paronychi a of toe of right foot 54092771020 493294 Active 2021 Not Available [facility] 3 00:51:28 Benign essential hypertens ion 0308737 Active Not Available [facility] 3 00:51:28 Chronic obstructi ve pulmonary disease 95489101 Active 2018 Not Available [facility] 3 00:51:28 Hyperkale tay 62470711 Active Not Available [facility] 3 00:51:28 Serum creatinin e outside reference range 473999434 Active Not Available [facility] 3 00:51:28 Raynaud's disease 010579496 Active 2018 Not Available [facility] 3 00:51:28 Fibromyal anahi 392798936 Active 2018 Not Available [facility] 3 00:51:28 Abdominal pain 50664559 Active Not Available [facility] 3 00:51:28 Perineal pain 076691064 Active Not Available [facility] 3 00:51:28 Sciatica 64316532 Active Not Available [facility] 3 00:51:28 Pneumonia 561269091 Active Not Available [facility] 3 00:51:28 Glaucoma 51766318 Active Not Available [facility] 3 00:51:29 Anemia 102767358 Active Not Available [facility] 3 00:51:29 Hyposmola lity 229851774 Active 2018 Not Available [facility] 3 00:51:29 Ferrell's esophagus 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 Active Last EGD 2 Not Available [facility] 3 00:51:29 Type 2 diabetes mellitus without complicat ion 949653352 Active Not Available [facility] 3 00:51:29 Hyperthyr oidism 40647468 Active Not Available [facility] 3 00:51:29 Depressiv e disorder 11779791 Active Not Available [facility] 3 00:51:29 Ulnar neuropath y 877061858 Active 2018 Not Available [facility] 3 00:51:29 Multiple bruising 826387611 Active Not Available [facility] 3 00:51:29 Migraine 36216061 Active Not Available [facility] 3 00:51:29 Osteoarth ritis 140764203 Active Not Available [facility] 3 00:51:29 Onychomyc osis of toenails 226762803 Active 2021 Not Available [facility] 3 00:51:29 Hypothyro idism 31933265 Active Not Available [facility] 3 00:51:29 Blood leukocyte number above reference range 851262481 Active Not Available [facility] 3 00:51:30 Nonexudat shakir age-relat ed macular degenerat ion 290182284 Active Not Available [facility] 3 00:51:30 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 Active Not Available [facility] 3 00:51:30 Degenerat shakir disorder of macula 303995185 Active Not Available [facility] 3 00:51:30 Nausea 525598118 Active 2021 Not Available [facility] 3 00:51:30 Chronic kidney disease stage 3 187859779 Active 2018 Not Available [facility] 3 00:51:30 Disorder of kidney and/or ureter 912656863 Completed Not Available [facility] 3 00:51:30 Sprain of ankle 81716018 Active Not Available [facility] 3 00:51:30 Hyperlipi demia 18153965 Active Not Available [facility] 3 00:51:30 Essential hypertens ion 45355305 Active Not Available [facility] 3 00:51:30 Polyp of colon 20205285 Active Not Available [facility] 3 00:51:31 Diabetes mellitus 10680505 Active Not Available [facility] 3 00:51:31 Cardiomeg sreekanth 1880753 Active Not Available [facility] 3 00:51:31 Iron deficienc y anemia 03015405 Active Not Available [facility] 3 00:51:31 Systemic sclerosis 05666364 Active Not Available [facility] 3 00:51:31 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 Procedures Surgical History Date Name Laterality Status Provider Name and Address Organization Details Recorded Time 08/05 Medicare Wellness CPT Code, subsequent completed Selina Cardoso RN [facility] [employer] [facility] 4 15:22:03 05/30 Transitional_Care_Managemen t completed Darlene Salazar MA [place] [facility] 3 17:29:23 12/25 esophagogastroduodenoscopy completed Not Available [facility] 3 00:44:33 Orthopedic Surgery completed Not Available [facility] 3 00:44:33 tooth extraction completed Not Available [facility] 3 00:44:33 Tonsillectomy completed Not Available [facility] 3 00:44:33 colonoscopy completed Not Available [facility] 3 00:44:33 Carpal tunnel surgery completed Not Available [facility] 3 00:44:33 Rotator cuff surgery completed Not Available [facility] 3 00:44:33 Imaging Results Imaging Date Name Status LastModified by Organ [facility] Details LastModified Time 11/01/2022 CT, sinuses, w/o contrast completed [address] [facility], [place], [address], 11/14/2022 14:14:11 12/14/2022 audiogram + tympanogram completed [email or web address] [facility] [address], [place], [address], 12/17/2022 08:34:14 05/28/2018 audiogram completed [email or web address] [facility] [address], [place], [address], 12/31/2022 14:41:49 05/06/2023 MAMMO, screening, bilateral completed [address] [facility], [place], [address], 08/06/2023 15:31:58 08/08/2023 XR, hip + pelvis, unilateral completed [address] [facility], [place], [address], 08/13/2023 11:48:32 08/08/2023 XR, lumbar spine completed [address] [address], [place], [address], 08/13/2023 11:48:33 08/14/2023 DEXA completed [address] [address], [place], [address], 08/15/2023 14:48:57 04/04/2024 XR, chest, 1 view completed [address] [address], [place], [address], 04/07/2024 09:34:45 04/06/2024 US, bladder completed [address] [address], [place], [address], 04/07/2024 09:34:59 04/06/2024 US, renal completed [email or web address] [address] [address], [place], [address], 04/07/2024 23:05:39 04/08/2024 imaging/diagnos tic result active [address] [address], [place], [address], 04/08/2024 09:44:04 04/08/2024 imaging/diagnos tic result active [address] [address], [place], [address], 04/08/2024 18:15:28 04/10/2024 imaging/diagnos tic result active [address], [address], 04/10/2024 09:42:28 Procedure Notes None recorded. Medical Equipment None Reported. Allergies Allergen ID Allergen Name Allergen Category Reaction Reaction Severity Criticality Documentation Date Start Date Code Code System Note Provider Name and Address Organization Details Recorded Time 951 Urecholin e medicatio n Not available Not available Not available 05/30/2022 65830 RxNorm Not Available [facility] 3 00:57:51 952 Travatan medicatio n Not available Not available Not available 05/30/2022 46256 6 RxNorm Not Available [facility] 3 00:57:51 953 Substance with sulfonami de structure and antibacte rial mechanism of action (substanc e) medicatio n Not available Not available Not available 05/30/2022 47040 8003 SNOMED Not Available [facility] 3 00:57:51 954 sulfameth oxazole / trimethop rim medicatio n Not available Not available Not available 05/30/2022 26081 RxNorm Not Available [facility] 3 00:57:51 955 Prozac medicatio n Not available Not available Not available 05/30/2022 49362 RxNorm Not Available [facility] 3 00:57:51 956 Ocuvite Lutein medicatio n Not available Not available Not available 05/30/2022 00302 5 RxNorm Not Available [facility] 3 00:57:51 957 Naprosyn medicatio n hives severe Not available 05/30/202220291 2 RxNorm Not Available [facility] 3 00:57:51 958 latex environme nt,medica tion Not available Not available Not available 05/30/2022 19597 91 RxNorm Not Available [facility] 3 00:57:51 959 cyclobenz aprine hydrochlo ride medicatio n Not available Not available Not available 05/30/2022 49472 RxNorm Not Available [facility] 3 00:57:52 960 egg extract food,medi cation Not available Not available Not available 05/30/2022 46317 15 RxNorm Not Available [facility] 3 00:57:52 961 Demerol medicatio n Not available Not available Not available 05/30/2022 94084 1 RxNorm Not Available [facility] 3 00:57:52 Medications Name Sig Start Date [...] Updated DateTime 12/06/2022 149.86 cm 29.9 kg/m2 26625.39 g 97.6 [degF] Sherrie Rosas RN [place] - [facility] [employer] 12/06/2022 14:58:10 Date Recorded Body height Body mass index (BMI) Body weight Body temperature Heart rate Oxygen saturation Oxygen saturation in Arterial blood by Pulse oximetry Systolic blood pressure Diastolic blood pressure Provider Name and Address Organization Details Last Updated DateTime 3 149.86 cm 30.9 kg/m2 63148.6 3 g 98.2 [degF] 74 /min 97 % 97 % 128 mm[Hg] 60 mm[Hg] Selina Cardoso RN [facility] [employer] [facility] 3 15:27:51 Date Recorded Body height Body mass index (BMI) Body weight Body temperature Heart rate Oxygen saturation Oxygen saturation in Arterial blood by Pulse oximetry Systolic blood pressure Diastolic blood pressure Provider Name and Address Organization Details Last Updated DateTime 4 149.86 cm 31.1 kg/m2 89252.2 2 g 98.1 [degF] 72 /min 95 % 95 % 152 mm[Hg] 78 mm[Hg] SANTI Randhawa [facility] [employer] [facility] 4 15:25:17 Date Recorded Body height Body mass index (BMI) Body weight Body temperature Heart rate Oxygen saturation Oxygen saturation in Arterial blood by Pulse oximetry Systolic blood pressure Diastolic blood pressure Provider Name and Address Organization Details Last Updated DateTime 4 149.86 cm 31.3 kg/m2 84408.8 2 g 98.6 [degF] 66 /min 98 % 98 % 108 mm[Hg] 58 mm[Hg] Ashli Dc RN [facility] [employer] [facility] 4 14:20:11 Date Recorded Body height Body mass index (BMI) Body weight Body temperature Heart rate Oxygen saturation Oxygen saturation in Arterial blood by Pulse oximetry Systolic blood pressure Diastolic blood pressure Provider Name and Address Organization Details Last Updated DateTime 4 149.86 cm 29.5 kg/m2 86245.4 9 g 98.7 [degF] 92 /min 97 % 97 % 114 mm[Hg] 68 mm[Hg] Ashli Dc RN [facility] [employer] [facility] 4 16:06:09 Social History Question Answer Notes LastModified by Organizat ion Details LastModified Time Tobacco Smoking Status Never Smoker Not Available [facility] 05/30/2022 00:44:23 What Is Your Level Of Alcohol Consumption? Occasional [id number] Information not available 05/30/2022 Are You Blind Or Do You Have Difficulty Seeing? No MIGRATION.243313 1123 Information not available 05/30/2022 What Is Your Level Of Caffeine Consumption? Moderate MIGRATION.000699 7795 Information not available 05/30/2022 How Much Tobacco Do You Chew? None MIGRATION.379912 8393 Information not available 05/30/2022 In The 14 Days Before Symptom Onset, Have You Had Close Contact With A Laboratory-confir med COVID-19 While That Case Was Ill? No MIGRATION.[id number] 9951 Information not available 05/30/2022 In The 14 Days Before Symptom Onset, Have You Had Close Contact With A Person Who Is Under Investigation For COVID-19 While That Person Was Ill? No MIGRATION.230297 0140 Information not available 05/30/2022 Are You Deaf Or Do You Have Serious Difficulty Hearing? No MIGRATION.046671 2806 Information not available 05/30/2022 What Type Of Diet Are You Following? DIABETIC MIGRATION.644426 6702 Information not available 05/30/2022 Which Illicit Or Recreational Drugs Have You Used? None MIGRATION.022089 8198 Information not available 05/30/2022 Do You Or Have You Ever Used E-cigarettes Or Vape? Never Used Electronic Cigarettes MIGRATION.824690 6571 Information not available 05/30/2022 What Is Your Occupation? Retired MIGRATION.614727 3591 Information not available 05/30/2022 What Was The Date Of Your Most Recent Tobacco Screening? 08/06/2023 Information not available 08/14/2023 Have You Ever Been Counseled For Unhealthy Alcohol Use? No Information not available 07/11/2022 Do You Use Your Seat Belt Or Car Seat Routinely? Yes MIGRATION.338530 4417 Information not available 05/30/2022 Do You Or Have You Ever Used Smokeless Tobacco? Never Used Smokeless Tobacco MIGRATION.335536 5233 Information not available 05/30/2022 Do You Use Any Illicit Or Recreational Drugs? No MIGRATION.093513 8044 Information not available 05/30/2022 Has Tobacco Cessation Counseling Been Provided? No MIGRATION.752989 0134 Information not available 05/30/2022 Have You Recently Traveled Abroad? No MIGRATION.814153 7942 Information not available 05/30/2022 Do You Or Have You Ever Used Any Other Forms Of Tobacco Or Nicotine? No MIGRATION.406523 8089 Information not available 05/30/2022 Sex: Female Functional Status Question Answer Note LastModified by Organizat ion Details LastModified Time Do you have difficulty walking or climbing stairs? No MIGRATION.[id number] 026 Information not available 05/30/2022 Do you have transportation difficulties? No MIGRATION.1458964 026 Information not available 05/30/2022 Are you able to walk? YESWOREST MIGRATION.7649024 026 Information not available 05/30/2022 Do you have difficulty doing errands alone? No MIGRATION.8734037 026 Information not available 05/30/2022 Are you able to care for yourself? Yes MIGRATION.9525444 026 Information not available 05/30/2022 Do you have difficulty dressing or bathing? No MIGRATION.4796768 026 Information not available 05/30/2022 Mental Status Question Answer Note LastModified by Organizat ion Details LastModified Time Do you have difficulty concentrating, remembering or making decisions? No MIGRATION.[id number] 6 Information not available 05/30/2022 Family History Relationship Description Onset Age of this Age Resolved Age Notes LastModified by Organization Details LastModified Time Maternal Grandmother Diabetes mellitus MIGRATION.745 [id number] Not available 05/30/2022 00:44:40 Mother Diabetes mellitus MIGRATION.248 [id number] Not available 05/30/2022 00:44:40 Mother Family history of stroke MIGRATION.234 [id number] Not available 05/30/2022 00:44:40 Mother Arthritis MIGRATION.355 [id number] Not available 05/30/2022 00:44:40 Mother Hypertensive disorder MIGRATION.501 5215646 Not available 05/30/2022 00:44:40 Mother Heart disease MIGRATION.541 [id number] Not available 05/30/2022 00:44:40 Brother Diabetes mellitus MIGRATION.062 1632409 Not available 05/30/2022 00:44:40 Brother Arthritis MIGRATION.789 [id number] Not available 05/30/2022 00:44:40 Brother Heart disease MIGRATION.082 [id number] Not available 05/30/2022 00:44:40 Sister Diabetes mellitus MIGRATION.878 [id number] Not available 05/30/2022 00:44:40 Sister Family history of stroke MIGRATION.428 [id number] Not available 05/30/2022 00:44:40 Sister Arthritis MIGRATION.757 [id number] Not available 05/30/2022 00:44:40 Sister Hypertensive disorder MIGRATION.569 [id number] Not available 05/30/2022 00:44:40 Sister Heart disease MIGRATION.910 [id number] Not available 05/30/2022 00:44:40 Father Arthritis MIGRATION.564 [id number] Not available 05/30/2022 00:44:40 Father Heart disease MIGRATION.000 0153443 Not available 05/30/2022 00:44:40 Unspecified Relation Family history of malignant neoplasm MIGRATION.028 [id number] Not available 05/30/2022 00:44:40 Notes:2 cousins breast cance r Medical History Condition Response ARTHRITIS Y HEADACHES/MIGRAINES Y ANEMIA/BLOOD DISORDER Y DIABETES, TYPE Y OSTEOPOROSIS Y CORONARY ARTERY DISEASE (CAD) Y DEPRESSION (INCLUDING POST ) Y BACK / NECK PROBLEMS Y HYPERTENSION Y COPD Y HIGH CHOLESTEROL / HYPERLIPIDEMIA Y Gynecological HistoryNo gynecological history recorded. Obstetrics History GPAL:G 0 P 0 0 0 0 Immunizations Vaccine Type Date Status Note Provider Nam e and Address Organization Details Recorded Time zoster recombinant 9 completed Magaly Terry APRN [address], [address], [place], [address], [employer] [facility] [employer] 12/05/2023 07:41:47 zoster recombinant 9 wilbur Terry APRN [address], [address], [place], [address], [employer] [facility] [employer] [facility] 12/05/2023 07:41:47 Influenza, high-dose, quadrivalent, PF 0 wilbur Terry APRN [address], [address], [place], [address], [employer] [facility] [employer] [facility] 12/05/2023 07:41:47 Influenza, high-dose, quadrivalent, PF 1 completed Magaly Trery APRN [address], [address], [place], [address], [employer] [facility] [employer] [facility] 12/05/2023 07:41:47 Influenza, high-dose, quadrivalent, PF 2 completed Magaly Terry APRN [address], [address], [place], [address], [facility] [employer] [facility] 12/05/2023 07:41:47 COVID-19 vaccine, vector-nr, rS-Ad26, PF, 0.5 mL 1 completed Magaly Terry APRN [address], [address], [place], [place], [address] [place] [address], [facility] [employer] [facility] 12/05/2023 07:41:47 COVID-19 vaccine, vector-nr, rS-Ad26, PF, 0.5 mL 1 completed Magaly Terry APRN [address], [address], [place], [place], [address] [place] [address], [facility] [employer] [facility] 12/05/2023 07:41:47 Influenza, high-dose, trivalent, PF 9 completed Magaly Terry APRN [address], [address], [place], [address], [facility] [employer] [facility] 12/05/2023 07:41:47 DTP 2 completed Not Available [facility] 05/30/2022 00:57:44 Influenza, split virus, quadrivalent, preservative 0 completed Magaly Terry APRN [address], [address], [place], [address], [facility] [employer] [facility] 12/05/2023 07:41:47 pneumococcal polysaccharide PPV23 0 completed Not Available [facility] 05/30/2022 00:57:44 Pneumococcal conjugate PCV 13 9 completed Not Available [facility] 05/30/2022 00:57:44 Influenza, high-dose, quadrivalent, PF 3 completed Selina Cardoso RN [facility] [employer] [facility] 02/05/2023 18:11:15 Past Encounters Encounter ID Performer Location Encounter Start Date Encounter Closed Date Diagnosis/Indication Diagnosis SNOMED-CT Code Diagnosis ICD10 Code Diagnosis Note [id number] [facility] [place] [place] [address] [place] [address] 05/30/2020 00:00:00 05/30/2020 16:11:25 [id number] [facility] [place] [address] [place] [address] 08/24/2020 00:00:00 08/25/2020 16:07:39 [id number] [facility] [place] [address] [place] [address] 11/22/2020 00:00:00 11/22/2020 14:17:09 [id number] [facility] [place] [address] [place] [address] 06/22/2021 00:00:00 06/28/2021 19:55:01 [id number] [facility] [place] [address] [place] [address], [address] [place] [address] 07/10/2021 00:00:00 07/25/2021 23:15:15 [id number] [facility] [place] [address] [place] [address], [address] [place] [address] 07/17/2021 00:00:00 07/25/2021 23:10:50 [id number] [facility] [place] [address] [place] [address] 07/20/2021 00:00:00 07/28/2021 10:34:36 [id number] [facility] [place] [address] [place] [address] 08/21/2021 00:00:00 08/21/2021 12:53:12 [id number] [facility] [place] [address] [place] [address], [address] [place] [address] 08/24/2021 00:00:00 08/24/2021 15:21:53 [id number] [facility] [place] [address] [place] [address] 09/19/2021 00:00:00 09/28/2021 09:11:56 [id number] [facility] [place] [address], [address] [place] [address] 10/06/2021 00:00:00 10/06/2021 10:29:12 [id number] [facility] [place] [address], [address] [place] [address] 10/26/2021 00:00:00 10/26/2021 14:30:05 [id number] [facility] [place] [address] [place] [address] 11/28/2021 00:00:00 11/28/2021 10:12:21 [id number] _ATHENA_M IGRATION_ DEFAULT_1 _1 , 12/20/2021 00:00:00 12/20/2021 12:09:40 [id number] _ATHENA_M IGRATION_ DEFAULT_1 _1 , 01/10/2022 00:00:00 01/10/2022 16:06:09 [id number] [facility] [place] [address] [place] [address] 02/28/2022 00:00:00 02/28/2022 14:07:31 [id number] [facility] [place] [address] [place] [address] 03/14/2022 00:00:00 03/30/2022 11:29:26 [id number] [facility] [place] [address] [place] [address] 03/16/2022 00:00:00 03/16/2022 18:01:17 [id number] [facility] [place] [address] [place] [address] 04/11/2022 00:00:00 04/11/2022 12:33:00 [id number] [facility] [place] [address] [place] [address] 04/24/2022 00:00:00 04/25/2022 18:13:59 [id number] [facility] Primary Care [facility] [address] [facility] [address] [place] [address] 05/23/2022 00:00:00 05/28/2022 17:45:36 [id number] Flex Tompkins MD [facility] Primary Care [facility] [address] [facility] [address] [place] [address] 05/30/2022 17:11:30 05/31/2022 11:38:51 Hyponatremia 67846061 E87.1 [facility]i ng [facility], may need to temporaril y start sodium replacemen t Anemia 186158920 D64.9 recheck labs Serotonin syndrome 65093 9000 G25.79 improved since d/c citalopram mood doing well Degenerati on of cervical intervertebral disc 23624035 M50.30 scheduled for surgery on Saturdaywill correct any electrolyt e abnormalit ies on labs drawn today and clear for surgerypt has significan t quality of life issues due to neck pain [id number] JORDYN Phan [facility] Primary Care [facility] [address] [facility] [address] [facility] [place] [address] 07/11/2022 15:10:56 07/11/2022 16:08:11 Hyponatremia 10398308 E87.1 Recheck sodium levels. Continue sodium supplement . Chronic ki dney disease stage 3 789827548 N18.30 Continue f/u with Dr. Reyna (nephrolog ist). Degenerati on of cervical intervertebral disc 81284326 M50.30 Currently in collar. States she is doing well, minimal pain. Will f/u with surgeon 07/18/22. [id number] Flex Tompkins MD [facility] Primary Care [facility] [address] [facility] [address] [facility] [place] [address] 08/06/2022 14:07:54 08/06/2022 15:03:33 Dysfunction of left eustachian tube 3925627655 264613 H69.92 Benign ess ential hypertension 8833060 I10 Hyperthyroidism 36279606 E05.90 Iron defic iency anemia 79131874 D50.9 Type 2 mabel betes mellitus without complication 065876934 E11.9 [id number] Flex Tompkins MD [facility] Primary Care [place] [address] [place] [address] 09/11/2022 14:13:22 09/11/2022 14:39:54 Dizziness 293152610 R42 likely due to degenerati ve disk disease cervical spinecheck US carotid Gout 85130322 M10.9 ?gout attackchec k uric acid Essential hypertension 43058719 I10 stable Iron defic iency anemia 76199040 D50.9 Type 2 mabel betes mellitus without complication 304801316 E11.9 [id number] Noah Rodrigues MD [facility] [place] [address] [place] [address] 09/20/2022 15:17:33 09/20/2022 16:04:27 Chronic sinusitis 85193943 J32.9 [id number] Noah Rodrigues MD [facility] [place] [address] [place] [address] 10/24/2022 15:29:01 10/24/2022 16:16:21 Chronic sinusitis 37357717 J32.9 [id number] Flex Tompkins MD [facility] [place] [address] [facility] [address] [place] [address] 10/26/2022 15:25:01 10/26/2022 15:31:35 [id number] Flex Tompkins MD [facility] [place] [address] [facility] [address] [place] [address] 11/02/2022 11:05:59 11/02/2022 11:36:05 Dizziness 294608855 R42 US carotid normalLabs stablehas f/u with ENT, CT did show sinus thickening if no improvemen t after sinus treatment, will refer to neurology for further evaluation reviewed s/s that warrant urgent/александр rgent eval in meantime [id number] Flex Tompkins MD [facility] [place] [address] [facility] [address] [place] [address] 11/28/2022 15:58:32 12/24/2022 15:44:59 [id number] Noah Rodrigues MD [facility] [place] [address] [address] [place] [address] 12/06/2022 14:47:54 12/06/2022 15:52:47 Chronic sinusitis 55764598 J32.9 Benign par oxysmal positional vertigo 852768876 H81.10 [id number] Flex Tompkins MD [facility] Primary Care [place] [address] [facility] [address] [place] [address] 02/05/2023 15:22:05 02/05/2023 15:48:32 Administration of influenza vaccine 88978733 Z23 Dizziness 260468825 R42 US carotid normalLabs stablehas f/u with ENT, CT did show sinus thickening if no improvemen t after sinus treatment, will refer to neurology for further evaluation reviewed s/s that warrant urgent/александр rgent eval in meantime update 02/05/23: resolved, f/u prn [id number] Flex Tompkins MD [facility] Primary Care [facility] [address] [facility] [address] [place] [address] 08/06/2023 15:13:47 08/16/2023 13:51:10 Adult health examination 822198970 Z00.00 Mammogram normal 05/25DEXA repeat orderedshi ngrix series 01/17 and 03/19Get flu vaccine yearlyteta nus shot done 2011Prevna r 13 given 2019Pneumo vax 23 given 2020Recomm end RSV vaccineRec ommend covid boosterCol onoscopy 12/2021- bular adenoma repeat 2026Labs up to date Screening for disorder 427024786 Z13.9 Postmenopausal state 764 49865 Z78.0 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 97780 K22.70 EGD 12/21 with recommenda tion to repeat EGD 12/23 Chronic ki dney disease stage 3 480014058 N18.30 I12.9 E55.9 E11.22 sees nephrology Benign ess ential hypertension 1560952 I10 check labs, if GFR is acceptable , will increase lisinopril to 40 mg daily Chronic ob structive pulmonary disease 37403383 J44.9 stable Hyperlipidemia 84897906 E78.5 stable Hypothyroidism 59420729 E03.9 stable Iron defic iency anemia 78807247 D50.9 uncertain statuschec k labs Primary fi bromyalgia syndrome 50711681 M79.7 stable Type 2 mabel betes mellitus without complication 930708032 E11.9 Eye exam up to datepodiat ry referral givencheck labs Gout 38510904 M10.9 stablerech blanca uric acid Degenerati on of lumbar intervertebral disc 24473636 M51.36 will check xrays, has seen pain mgmt in the past Pain of le ft hip joint 0869805803 56888 M25.552 Eruption 125572942 R21 [id number] CEZAR Albert [facility] Primary Care [address] [place] [address] 09/19/2023 14:13:42 09/19/2023 15:09:46 Diabetes mellitus 32386800 E11.9 -hx of positive use with jacqui hartman blood sugar occ, 120s to 150s-trial ozempic, f/u in 1 month [id number] CEZAR Albert [facility] Primary Care [address] [place] [address] 11/21/2023 16:00:44 11/21/2023 16:49:44 Diabetes mellitus 89267236 E11.9 no negative side effects noted with use of ozempicnot es blood sugars being as low as the 80sencoura ge snack before bed time Neuropathy 009425753 G62 .9 Gout 55085572 M10.9 Renewal of prescription 287620162 Z76.0 Health Concerns Section Related Observation LastModified by Organization Detai ls LastModified Time None Recorded Concern Status LastModified by Organization Details LastModified Time None Recorded Advance Directives Directive None Recorded Payers Encounter Date Sequence Insurance Name Policy Number Policy [place] Covered Member ID In[place] Member ID Guarantor Name 12/06/2022 1 [facility] (MEDICARE REPLACEMENT/A DVANTAGE - HMO) [id number] Kandace Cole [id number] Kandace Maria Douglas 02/05/2023 1 [facility] (MEDICARE REPLACEMENT/A DVANTAGE - HMO) [id number] Kandace Maria Douglas [id number] Kandace Cole 08/06/2023 1 [facility] (MEDICARE REPLACEMENT/A DVANTAGE - HMO) [id number] Kandace Maria Douglas [id number] Kandace Cole 09/19/2023 1 [facility] (MEDICARE REPLACEMENT/A DVANTAGE - HMO) [id number] Kandace Maria Douglas [id number] Kandace Cole 11/21/2023 1 [facility] (MEDICARE REPLACEMENT/A DVANTAGE - HMO) [id number] Kandace Maria Douglas [id number] Kandace Cole Notes Date Note Type Note [...] Rodrigues MD [address], [place], [address], [employer] 12/06/2022 15:22:51 02/05/2023 text/html had neck surgery [...] Tompkins MD [address], [place], [address], [employer] 02/05/2023 15:43:35 08/06/2023 text/html Blood pressure h as been elevated Blood sugars have been fairly good pain down left leg, hard to bear weight, constantno numbness rash started about 3 weeks ago-top of foot, elbows and knees. Using athletes foot cream Flex Tompkins MD [address], [place], [address], [facility] Zauber 08/14/2023 17:47:57 09/19/2023 text/html pt is here to review labs/imaging CEZAR Albert [address], [place], [address], [place] [employer] 09/19/2023 14:36:16 11/21/2023 text/html pt is here for f /u on meds CEZAR Albert [address], [place], [address], [place] [employer] 11/21/2023 16:25:25 OBGyn Episode No OBEpisode recorded.
--- OUTSIDE RECORDS SUMMARY | 2024-04-12 16:30 | XMS_ITS | CONTINUITY OF CARE DOCUMENT ---
Author Name [email or web address] Address Unknown Organization [facility] Address [address] [facility] [place] [address] Phone [phone] Care Team Providers Care Lay Brother Name Role Phone Aaron Conte MD Unavailable FLEX SANTOS MD Unavailable FLEX SANTOS MD Unavailable [phone] INSURANCE PROVID[employer] Payer name Policy type / Coverage type [place] [employer] party ID [employer] MEDICARE COMPLETE HMO Other [id number]
--- OUTSIDE RECORDS SUMMARY | 2024-04-12 16:30 | XMS_ITS | Encounter Summary ---
Author Organization [facility] Health Address [address] [facility] [place] [address] Care Team Providers Care Medical Office Receptionist Assistant Name Role Phone Karrie Phillips MD Primary Care Provider [phone] Encounter Details Date Type Department Care Team [...] and heating? 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
--- OUTSIDE RECORDS SUMMARY | 2024-04-12 16:31 | XMS_ITS | Encounter Summary ---
Author Organization [facility] Address [address] [place] [address] Care Team Providers Care Food Service Employee Name Role Phone Karrie Phillips MD Primary Care Provider [phone] Reason for Visit * Auth/Cert (Routine) Specialty Diagnoses / Procedures Referred By Everardo fried Referred To Contact Diagnoses Cervical myelopathy (HCC) cervical myelopathy Procedures FUSION POSTERIOR CERVICAL (PCF) Referral ID Status Reason Start Date Expiration Date Visits Re quested Visits Authorized [id number] 1 1 Encounter Details Date Type Department Care Team (Late st Contact Info) Description 06/04/2022 5:08 AM RETINAL ANGIOGRAPHER - 06/08/2022 9:15 PM [facility] Hospital Encounter SL 5S ACUTE [address] [place] [address] Deon Taylor MD [address] [place] [phone] Ama Gonzalez MD [address] [place] [address] [facility] [place] [address] Surgery General Discharge Disposition: Rehab:Inpatient Social History [...] heating? Not hard at all 06/04/2022 [facility] of Occupat ional Health - Occupational Stress [...] Comments Blood Pressure 130/85 06/08/2022 8:09 PM RETINAL ANGIOGRAPHER Pulse 65 06/08/2022 8:09 PM RETINAL ANGIOGRAPHER Temperature 36.6 ??C (97.8 ??F) 06/08/2022 8:09 PM CS T Respiratory Rate 16 06/08/2022 8:09 PM RETINAL ANGIOGRAPHER Oxygen Saturation 100% 06/08/2022 8:09 PM RETINAL ANGIOGRAPHER Inhaled Oxygen Concentration - - Weight 60.5 kg (133 lb 6.4 oz) 06/04/2022 5:52 A M RETINAL ANGIOGRAPHER Height 154.9 cm (5' 1 ) 06/04/2022 5:52 AM RETINAL ANGIOGRAPHER Body Mass Index 25.21 06/04/2022 5:52 AM RETINAL ANGIOGRAPHER documented in this encounter Functional Status Functional [...] Physician Discharge Summary Patient ID: Kandace Cole [id number] 72 year old 1950 Admit date: 06/04/2022 [...] PT/OT who are recommending rehab. Discharged to [facility]. ?? Consults: Orthopedics Significant Diagnostic [...] 0.65 % nasal spray Commonly known as: [place]; Baby [place] 1 (one) spray into each nostril as [...] to ask the pharmacy when you pickle water pump operator your prescription. You may also call your primary provider to ask if you should be taking your medication. FOLLOW-UP: It is important that you follow-up with all appointments that have been made on your behalf. These appointments include: Future Appointments Monday June 20, 2022 8:45 AM Appointment with Deon Taylor at [facility] 1L ([phone]) [address] [facility], First Level [facility] [address] If a follow-up with your primary care provider has not been scheduled, please schedule an appointment to follow-up on your hospitalization. If there is a conflict, please call the clinic ahead of time and reschedule the appointment. Regards, Internal Medicine Department [facility] [address] [place] [address] Orthopedic Spine Surgery Patient Discharge [...] please call 911. Follow up Contact Information: [facility] Orthopedic Surgery office contact information: [facility] ([facility]) [address] [place] [address], 1st [place] [address] [place] [id number] [facility], [address] [place] [address] Visit our website at [email or web address] for information about our practice and an interactive health encyclopedia. Please visit [email or web address] to access your health record, ask questions, request medication refills, and request appointments for non-urgent needs after you have configured your [employer] account. If you do not currently have access, please contact one of our staff members or call [phone]. For after hour emergencies, please call and press 0 for the dielectric embossing machine operator in order to page the orthopedic resident dairy nutritionist. This list of medications is preliminary and [...] TABLET BY MOUTH DAILY saline nasal spray ([place]; Baby [place]) 0.65 % nasal spray [place] 1 (one) spray into each nostril as [...] Tammi Perez MD, 06/08/2022 at 3:12 PM NAL ANGIOGRAPHER Associated attestation - Ama Gonzalez MD - 06/08/2022 7:17 PM RETINAL ANGIOGRAPHER I have verified the documentation and discharge [...] and polypharmacy, who was admitted to [facility] spine 06/04 for a planned cervical-thoracic posterior [...] to acute rehab per PT/OT recommendations. Ama Gonzalze MD Geriatrics and Palliative Medicine Attending 06/08/2022 documented in this encounter Discharge Instructions * Discharge Instructions* Tammi Perez MD - 06/07/2022 11:07 AM RETINAL ANGIOGRAPHER A Note From Your Doctors: Dear Kandace [...] 0.65 % nasal spray Commonly known as: [place]; Baby [place] 1 (one) spray into each nostril as [...] to ask the pharmacy when you pickle water pump operator your prescription. You may also call your primary provider to ask if you should be taking your medication. FOLLOW-UP: It is important that you follow-up with all appointments that have been made on your behalf. These appointments include: Future Appointments Monday June 20, 2022 8:45 AM Appointment with Deon Taylor at [facility] 1L ([phone]) [address] [place] [address] If a follow-up with your primary care provider has not been scheduled, please schedule an appointment to follow-up on your hospitalization. If there is a conflict, please call the clinic ahead of time and reschedule the appointment. Regards, Internal Medicine Department [facility] [address] [place] [address] Orthopedic Spine Surgery Patient Discharge [...] Dr. Taylor's nurse, Anabell Avendaño RN, at [phone] with any questions or concerns. - ACTIVITY: [...] please call 911. Follow up Contact Information: [facility] Orthopedic Surgery office contact information: [facility] ([facility]) [address] [place] [address], 1st [place] [address] [facility] [address] [facility], [address] [place] [address] Visit our website at [email or web address] for information about our practice and an interactive health encyclopedia. Please visit [email or web address] to access your health record, ask questions, request medication refills, and request appointments for non-urgent needs after you have configured your [employer] account. If you do not currently have access, please contact one of our staff members or call [phone]. For after hour emergencies, please call and press 0 for the dielectric embossing machine operator in order to page the orthopedic resident dairy nutritionist. NAL ANGIOGRAPHER documented in this encounter Medications at Time [...] mouth every evening 06/08/2022 saline nasal spray ([place]; Baby [place]) 0.65 % nasal spray [place] 1 (one) spray into each nostril as [...] to allow for safe mobility Outcome: Progressing NAL ANGIOGRAPHER * Makenzie Choi RN - 06/08/2022 3:57 [...] 1420 by Makenzie Choi RN Outcome: Progressing NAL ANGIOGRAPHER * Charissa Murphy - 06/08/2022 2:52 PM CST Facility Transfer Note Level of Care: Actual level of care at discharge: Acute Rehab Facility Facility Name: (include name of person confirming admission): Actual discharge provider: [facility] Made Aware of Special Needs (if applicable): n/a RN Call Report to:[phone] Fax D/C Orders to:[phone] MD to MD: Dr Baldwin [phone] Transportation (company and number): [facility]: [phone] Certificate of Medical Necessity rationale: weakness, impaired mobility, unsteady gait, spinal precautions Date/time of transfer: 06-08-22 @ Accepting MD and contact #: Denny Completed and Signed [id number] (if applicable): n/a Family/Other Notified of Transfer (name/phone): patient Authorization Skilled Care: Authorization for Transportation: Verified Qualifying Stay(Skilled Only): NOT APPLICABLE Comments: Name/Phone number: Charissa Lawrence Jeffrey [phone] NAL ANGIOGRAPHER * Joanna Easley PT - 06/08/2022 2:[address] [facility] Physical Medicine and Rehabilitation Physical Therapy Progress Note Patient: Kandace Cole Med Record Number: [id number] Date of : 1950 Age: [age] year [...] as Tolerated Spine Precautions: Yes Spine Precautions: [place] OBJECTIVE: At start of therapy session, patient [...] ambulate??75??feet with minimal assist??and appropriate AD ?? Mcfp Goal(s): Patient to discharge to appropriate next [...] light within reach, with Makenzie HANCOCK aware. NAL ANGIOGRAPHER * Makenzie Choi RN - 06/08/2022 2:20 [...] to allow for safe mobility Outcome: Progressing NAL ANGIOGRAPHER * Annemarie Collazo COTA - 06/08/2022 2:[address] [facility] Physical Medicine and Rehabilitation Occupational Therapy Progress Note Patient: Kandace Cole [facility] Record Number: [id number] Date of : 1950 Age: [age] year [...] perform bed to chair??with stand by assist Lead Php Developer Goal(s): Patient to discharge to appropriate next [...] with therapy cues visible on white board. NAL ANGIOGRAPHER * Cammy Aleman RN - 06/08/2022 12:51 [...] Emergency Contact Information Primary Emergency Contact: BARBARA CISNREOS Mobile Relation: Brother Secondary Emergency Contact: JanuaryBarbara Address: [place], [place] Relation: Other Transportation at Discharge: Family [...] get more.: Never true Medication affordability concerns: [place]: Cammy Aleman RN Case housing property manager: [phone] 06/08/2022 NAL ANGIOGRAPHER * Tammi Perez MD - 06/08/2022 10:20 AM CST Internal Medicine Progress Note Patient: Kandace Cole (:1950) Room: [facility][note 2] Date of admission: 06/04/2022 No of days [...] results for input(s): MG in the last 03579 hours. Phosphorus: Recent Labs Component Name 06/08/2221206/07/2222306/06/22306 PHOS 2.5* 2.7* 3.2 Coagulation: No results for input(s): PT, INR, PTT in the last 32833 hours. Micro Microbiology Results (Displays last 21 [...] ? Tammi Perez MD PGY-3 Internal Medicine NAL ANGIOGRAPHER Associated attestation - Ama Gonzalez MD - 06/08/2022 10:42 PM RETINAL ANGIOGRAPHER I have verified the documentation of the [...] Easley PT - 06/08/2022 10:15 AM CST [facility] Department of Physical Medicine & Rehabilitation Progress Note Patient: Kandace Cole Med Record Number: [id number] Date of : 1950 Age: [age] year old 06/08/22 1015 Missed Visit Missed Visit Other (Comment) (Patient just back to bed. Requested therapy at later time.) NAL ANGIOGRAPHER * Charissa Murphy - 06/08/2022 9:55 AM CST Saturday Summary Note Discharge Level of Care: Rehab Discharge Destination:[facility] Phone Number: (Tracey peña) Fax Number: Insurance Auth:auth will need to be done as patient has [facility] Anticipated Mode of Transportation: to be determined (EMS) or person vehicle Contacts (Name, relationship, phone #): Anticipated DC Date: patient is ready for disposition Pending Needs: review from rehab for acceptance and authorization will need to be done. Comments: Liaison is aware of this referral and will review. DASHAWN was called by [employer] [phone] saying to call them as two rehab's have put in request ([facility] and [facility]) DASHAWN informed that [facility] has been the chosen provider and never spoke to anyone at [facility]. Material Mover with [employer] informed DASHAWN that it's currently under review. DASHAWN provided contact information for care support representative to call back once decision has been made. Charissa Murphy Phone [phone] 06/08/2022 NAL ANGIOGRAPHER * Heather Sethi - 06/08/2022 8:52 AM CST Internal Medicine Progress Note Patient: Kandace Cole (:1950) Room: [facility]/ Date of admission: 06/04/2022 No of [...] results for input(s): MG in the last 21725 hours. Phosphorus: Recent Labs Component Name 06/08/2221206/07/2222306/06/22 030 PHOS 2.5* 2.7* 3.2 Coagulation: No results for input(s): PT, INR, PTT in the last 00898 hours. Micro Microbiology Results (Displays last 21 [...] is HDS. Heather Sethi MS3 Internal Medicine NAL ANGIOGRAPHER Associated attestation - Ama Gonzalez MD - 06/08/2022 7:11 PM RETINAL ANGIOGRAPHER I have verified the documentation of the medical student. This note is for educational purposes only. Please refer to the resident's note for complete note for details and my assessment. Ama Gonzalez MD 06/08/2022 * Joey Dickens MD - 06/08/2022 5:50 AM CST [facility] Orthopedic Spine Surgery Daily Progress Note Kandace Cole, 72 year old, female : 1950 CSN: [id number] Primary Care Physician: Karrie Phillips MD, MD [...] for input(s): PT, INR in the last 23553 hours. No results for input(s): PTT in the last 66312 hours. Cultures No results found for this or any previous visit (from the past 248 hour(s)). Physical Exam General: Awake, alert, follows commands, in no acute distress Neck: - C-collar/[place] J: Present - Tenderness to palpation: Deferred [...] concerns Joey Dickens MD 06/08/2022 5:50 AM NAL ANGIOGRAPHER * Vivian Boo RN - 06/07/2022 10:43 [...] at normal rate and depth. Outcome: Progressing NAL ANGIOGRAPHER * Ama Gonzalez MD - 06/07/2022 10:38 [...] and polypharmacy, who was admitted to [facility] 06/04 for a planned cervical-thoracic posterior [...] Tammi Perez MD ??? saline nasal spray ([place]; Baby [place]) 0.65 % nasal spray 2 spray 2 [...] input(s): PT, INR, APTT in the last 11881 hours. Recent Labs Component Name 03/09/23 0224 [...] and Palliative Medicine Attending 06/07/2022 10:39 PM NAL ANGIOGRAPHER * Makenzie Choi RN - 06/07/2022 6:28 [...] to allow for safe mobility Outcome: Progressing NAL ANGIOGRAPHER * Daniella Le PT - 06/07/2022 2:[address] [facility] Physical Medicine and Rehabilitation Physical Therapy Progress Note Patient: Kandace Cole [facility] Record Number: [id number] Date of : 1950 Age: [age] year [...] (in C-collar) Spine Precautions: Yes Spine Precautions: [place] OBJECTIVE: At start of therapy session, patient [...] feet with minimal assist and appropriate AD Mcfp Goal(s): Patient to discharge to appropriate next [...] on , with call light within reach. NAL ANGIOGRAPHER * Sherrie Boyer, OT - 06/07/2022 1:[address] [facility] Physical Medicine and Rehabilitation Occupational Therapy Progress Note Patient: Kandace Cole Med Record Number: [id number] Date of : 1950 Age: [age] year [...] Pt agreeable to therapy; [facility] Pain Assessment: Pain Location #1 Pain [...] to chair with stand by assist ?? Mcfp Goal(s): Patient to discharge to appropriate next [...] light within reach, with RN, Migdalia aware. NAL ANGIOGRAPHER * Charissa Murphy - 06/07/2022 10:43 AM CST DASHAWN rec'd call from [facility] Keith) to say Cadence will be here to assess patient. If patient isin agreement to going, auth will be initiated. SW to wait for liaison to come and patient to make determination on rehab choice. ISELA Hensley Care Coordination Core Shaper Sides NAL ANGIOGRAPHER * Heather Sethi - 06/07/2022 10:12 AM CST Internal Medicine Progress Note Patient: Kandace Cole (:1950) Room: [facility][note 2] Date of admission: 06/04/2022 No of days [...] results for input(s): MG in the last 92141 hours. Phosphorus: Recent Labs Component Name 06/07/2222306/06/2230602/16/22 0757 PHOS 2.7* 3.2 3.9 Coagulation: No results for input(s): PT, INR, PTT in the last 69191 hours. Micro Microbiology Results (Displays last 21 [...] is HDS. Heather Sethi MS3 Internal Medicine NAL ANGIOGRAPHER Associated attestation - Ama Gonzalez MD - 06/07/2022 10:37 PM RETINAL ANGIOGRAPHER I have verified the documentation of the medical student. This note is for educational purposes only. Please refer to the resident's note for complete note for details and my assessment. Ama Gonzalez MD 06/07/2022 * Joey Dickens MD - 06/07/2022 5:31 AM CST [facility] Orthopedic Spine Surgery Daily Progress Note Kandace Cole, 72 year old, female : 1950 CSN: [id number] Primary Care Physician: Karrie Phillips MD, MD [...] for input(s): PT, INR in the last 20119 hours. No results for input(s): PTT in the last 49349 hours. Cultures No results found for this or any previous visit (from the past 248 hour(s)). Physical Exam General: Awake, alert, follows commands, in no acute distress Neck: - C-collar/[place] J: Present - Tenderness to palpation: Deferred [...] concerns Joey Dickens MD 06/07/2022 5:31 AM NAL ANGIOGRAPHER Associated attestation - Deon Taylor MD - 06/07/2022 4:44 PM RETINAL ANGIOGRAPHER I have seen and evaluated the patient [...] found in the flowsheet documentation) Outcome: Progressing NAL ANGIOGRAPHER * Annemarie Collazo COTA - 06/06/2022 3:59 PM CST [facility] Department of Physical Medicine & Rehabilitation Progress Note Patient: Kandace Cole Med Record Number: [id number] Date of : 1950 Age: [age] year old 06/06/22 1017 Missed Visit Missed Visit RN Cancel (Pt receiveing blood) NAL ANGIOGRAPHER * Heather Sethi - 06/06/2022 1:56 PM CST Internal Medicine Progress Note Patient: Kandace Cole (:1950) Room: [facility][note 2] Date of admission: 06/04/2022 No of days [...] results for input(s): MG in the last 86265 hours. Phosphorus: Recent Labs Component Name 06/06/2230602/16/22756 PHOS 3.2 3.9 Coagulation: No results for input(s): PT, INR, PTT in the last 92123 hours. Micro Microbiology Results (Displays last 21 [...] is HDS. Heather Sethi MS3 Internal Medicine NAL ANGIOGRAPHER Associated attestation - Ama Gonzalez MD - 06/06/2022 8:42 PM RETINAL ANGIOGRAPHER I have verified the documentation of the medical student. This note is for educational purposes only. Please refer to the resident's note for complete note for details and my assessment. Ama Gonzalez MD 06/06/2022 * Joanna Easley PT - 06/06/2022 10:00 AM CST [facility] Department of Physical Medicine & Rehabilitation Progress Note Patient: Kandace Cole Med Record Number: [id number] Date of : 1950 Age: [age] year old 06/06/22 1000 Missed Visit Missed Visit RN Cancel (Patient receiving blood) NAL ANGIOGRAPHER * Tammi Perez MD - 06/06/2022 9:01 AM CST Internal Medicine Progress Note Patient: Kandace Cole (:1950) Room: [facility][note 2] Date of admission: 06/04/2022 No of days [...] results for input(s): MG in the last 01695 hours. Phosphorus: Recent Labs Component Name 06/06/22 0307 02/16/22 0757 PHOS 3.2 3.9 Coagulation: No results for input(s): PT, INR, PTT in the last 33998 hours. Micro Microbiology Results (Displays last 21 [...] ? Tammi Perez MD PGY-3 Internal Medicine NAL ANGIOGRAPHER Associated attestation - Ama Gonzalez MD - 06/06/2022 9:13 PM RETINAL ANGIOGRAPHER I have verified the documentation of the [...] and polypharmacy, who was admitted to [facility] 06/04 for a planned cervical-thoracic posterior [...] 72 year old, female : 1950 CSN: [id number] Primary Care Physician: Karrie Phillips MD, MD [...] for input(s): PT, INR in the last 72805 hours. No results for input(s): PTT in the last 33399 hours. Cultures No results found for this or any previous visit (from the past 248 hour(s)). Physical Exam General: Awake, alert, follows commands, in no acute distress Neck: - C-collar/[place] J: Present - Tenderness to palpation: Deferred [...] concerns Joey Dickens MD 06/06/2022 8:08 AM NAL ANGIOGRAPHER Associated attestation - Deon Taylor MD - 06/06/2022 12:41 PM RETINAL ANGIOGRAPHER I have seen and evaluated the patient [...] to allow for safe mobility Outcome: Progressing NAL ANGIOGRAPHER * Slim Camacho RN - 06/05/2022 11:00 [...] to allow for safe mobility Outcome: Progressing NAL ANGIOGRAPHER * Tammi Perez MD - 06/05/2022 4:34 PM CST Internal Medicine Progress Note Patient: Kandace Cole (:1950) Room: [facility][note 2] Date of admission: 06/04/2022 No of days [...] results for input(s): MG in the last 97300 hours. Phosphorus: Recent Labs Component Name 02/16/22 0757 PHOS 3.9 Coagulation: No results for input(s): PT, INR, PTT in the last 39786 hours. Micro Microbiology Results (Displays last 21 [...] ? Tammi Perez MD PGY-3 Internal Medicine NAL ANGIOGRAPHER Associated attestation - Ama Gonzalez MD - 06/05/2022 8:56 PM RETINAL ANGIOGRAPHER I have verified the documentation of the [...] and polypharmacy, who was admitted to [facility] 06/04 for a planned cervical-thoracic posterior [...] patient's preference is to stay within the [facility] and its affiliates.: Unsure Comments: Lives with: Other (Comment) (Grandson) Physical Limitations: None Independent with the use of a ww Requires Assistance With: None Preferred Pharmacy: [facility] [address] [facility] [id number] [address] [facility] [address] Advance Directive: No Advance Directive Information Given: Not Applicable Would you like assistance on completing and executing or revising an Advance Directive?: No Payer/Plan Subscriber Name Rel Member # Group # [facility] MANAGED MEDICARE * KANDACE COLE Mark [id number] [address] [id number] 16 at 4:08 PM 06/05/2022. Met with patient Family Support (name and phone): Extended Emergency Contact Information Primary Emergency Contact: BARBARA CISNEROS Mobile Relation: Brother Secondary Emergency Contact: Barbara Cisneros Address: [place], [place] Relation: Other Patient or care support representative requests care coordination reach out to family or caregiver listed above regarding discharge planning and at time of discharge? Yes grandson Patient/Family provided with list of resources? Unknown Preferred Provider / High Quality Network List given?: Unknown Reason for provider choice: Unknown Equipment at Home: Chair-Shower;Grab Bars;Cane-Small Base Quad;Walker-2 Wheeled;Walker-4 Wheeled with Seat List DME pt. requires but does not have.: None Core Shaper Sides Referral: Yes -Placement Will continue to follow. For any questions or needs please contact: Legal Billing Specialist Name/Phone number: Cammy Aleman RN Case housing property manager: [phone] 06/05/2022 NAL ANGIOGRAPHER * Heather Sethi - 06/05/2022 2:44 PM CST Internal Medicine Progress Note Patient: Kandace Cole (:1950) Room: [facility][note 2] Date of admission: 06/04/2022 No of days [...] results for input(s): MG in the last 56075 hours. Phosphorus: Recent Labs Component Name 02/16/22 0757 PHOS 3.9 Coagulation: No results for input(s): PT, INR, PTT in the last 97099 hours. Micro Microbiology Results (Displays last 21 [...] spine 06/05 Awaiting radiology reading IMPRESSION/PLAN: Ms. Cloe is a 72 year old female with [...] is HDS. Heather Sethi MS3 Internal Medicine NAL ANGIOGRAPHER Associated attestation - Ama Gonzalez MD - 06/05/2022 11:04 PM RETINAL ANGIOGRAPHER I have verified the documentation of the [...] Achieves restful, refreshing sleep pattern. Outcome: Progressing NAL ANGIOGRAPHER * Sandra Brown, PT - 06/05/2022 10:[address] [facility] Physical Medicine and Rehabilitation Physical Therapy Initial Evaluation Note Patient: Kandace Cole [facility] Record Number: [id number] Date of : 1950 Age: [age] year [...] closed fractures of facial bone, initial encounter ([facility]) Abdominal pain Abnormal serum creatinine level Anemia Ferrell's esophagus Cardiomegaly Chronic kidney disease Chronic obstructive pulmonary disease ([facility]) Chronic depression Dyspnea on exertion Benign essential hypertension Glaucoma Hyperkalemia Hyposmolality Hyperthyroidism Hypothyroidism Intractable chronic migraine without aura Iron deficiency anemia Leukocytosis Macular degeneration Migraine Ulnar neuropathy Type 2 diabetes mellitus ([facility]) Type 2 diabetes mellitus with stage 3 chronic kidney disease, without long-term current use of insulin ([facility]) Temporomandibular joint disorder Systemic sclerosis ([facility]) Sprain of ankle Sciatica Recurrent major depression in remission ([facility]) Raynaud's disease Primary fibromyalgia syndrome Polyp of [...] feet with minimal assist and appropriate AD Lead Php Developer Goal(s): Patient to discharge to appropriate next [...] reach, with RNMigdalia, aware. All lines intact. NAL ANGIOGRAPHER * Olimpia Adames, OT - 06/05/2022 10:[address] [facility] Physical Medicine and Rehabilitation Occupational Therapy Initial Evaluation Note Patient: Kandace Cole Med Record Number: [id number] Date of : 1950 Age: [age] year [...] closed fractures of facial bone, initial encounter ([facility]/HCC) Abdominal pain Abnormal serum creatinine level Anemia Ferrell's esophagus Cardiomegaly Chronic kidney disease Chronic obstructive pulmonary disease (CMS/HCC) Chronic depression Dyspnea on exertion Benign essential hypertension Glaucoma Hyperkalemia Hyposmolality Hyperthyroidism Hypothyroidism Intractable chronic migraine without aura Iron deficiency anemia Leukocytosis Macular degeneration Migraine Ulnar neuropathy Type 2 diabetes mellitus ([facility]/HCC) Type 2 diabetes mellitus with stage 3 chronic kidney disease, without long-term current use of insulin ([facility]/HCC) Temporomandibular joint disorder Systemic sclerosis ([facility]) Sprain of ankle Sciatica Recurrent major depression in remission ([facility]) Raynaud's disease Primary fibromyalgia syndrome Polyp of colon Perineal pain Paronychia of toe of right foot Onychomycosis of toenail Nonexudative 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 Nausea Multiple bruises Mixed hyperlipidemia Mixed collagen vascular disease ([facility]) Past Medical History: Diagnosis Date ??? Anemia ??? Ferrell's esophagus ??? CKD (chronic kidney disease), stage III ([facility]) ??? Diabetes ??? Disease of esophagus ??? [...] bed to chair with stand by assist Mcfp Goal(s): Patient to discharge to appropriate next [...] light within reach, with Migdalia HANCOCK aware. NAL ANGIOGRAPHER * Joey Dickens MD - 06/05/2022 6:53 AM CST [facility] Orthopedic Spine Surgery Daily Progress Note Kandace Cole, 72 year old, female : 1950 CSN: [id number] Primary Care Physician: Karrie Phillips MD, MD [...] for input(s): PT, INR in the last 61585 hours. No results for input(s): PTT in the last 55295 hours. Cultures No results found for this or any previous visit (from the past 248 hour(s)). Physical Exam General: Awake, alert, follows commands, in no acute distress Neck: - C-collar/[place] J: Present - Tenderness to palpation: Deferred [...] concerns Joey Dickens MD 06/05/2022 6:53 AM NAL ANGIOGRAPHER Associated attestation - Deon Taylor MD - 06/05/2022 4:23 PM RETINAL ANGIOGRAPHER I have seen and evaluated the patient [...] Achieves restful, refreshing sleep pattern. Outcome: Progressing NAL ANGIOGRAPHER * Yaritza Lynch RN - 06/04/2022 2:46 [...] Achieves restful, refreshing sleep pattern. Outcome: Progressing NAL ANGIOGRAPHER * Padma Morales MD - 06/04/2022 11:51 [...] Activity: as tolerated from ortho perspective in [place] collar 2. PT/OT 3. Pain Control- oral medications 4. DVT Prophylaxis: ambulation, SCDs 5. Drains? HV x1 6. Continue perioperative ancef 7. Admit to floor under Ortho Spine 8. Please page Ortho Spine with any additional questions or concerns Padma Morales MD 06/04/2022 4:23 PM NAL ANGIOGRAPHER documented in this encounter H&P Notes * Padma Morales MD - 06/04/2022 5:28 AM CST Orthopedic Spine Surgery H&P Note Kandace Cole, 72 year old, female : 1950 CSN: [id number] Diagnosis/Procedures 1.) Cervical myelopathy Today's Date: 06/04/2022 [...] concerns Padma Morales MD 06/04/2022 5:28 AM NAL ANGIOGRAPHER Associated attestation - Deon Taylor MD - 06/04/2022 7:15 AM RETINAL ANGIOGRAPHER I have seen and evaluated the patient and agree with the resident's assessment and plan as stated above. I have independently reviewed all imaging studies. Deon Taylor MD documented in this encounter Consult Notes * Charissa uMrphy - 06/06/2022 4:02 PM CSTAssociated Order(s): IP CONSULT TO EDUCATION COUNSELOR SW newly assigned and following for placement and disposition. SW acknowledge referral for placement in facility. SW was informed that patient will need rehab. SW made referrals. 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 Weight hx limited; RD noted 6.5% [...] Pain affecting intake: No Estimated Needs: KCAL: [id number] (25-30 kcal/kg ABW) Protein (g): 90 (1.5 [...] Goal Progress: New goal established Ascom: [id number] NAL ANGIOGRAPHER * Adolph Juarez, TRANSLATOR INTERPRETER-APPLIED SCIENCE AND TECHNOLOGIES DEAN - 06/04/2022 2:17 PM CSTAssociated Order(s): IP [...] Social: Lives at home with grandson in [facility]. Does not smoke or drink. Has [...] 200 MG tablet ??? saline nasal spray ([place]; [place]) 0.65 % nasal spray RCS: Memory very [...] mouth once daily ??? saline nasal spray ([place]; [place]) 0.65 % nasal spray [place] 1 (one) spray into each nostril as [...] input(s): PT, INR, APTT in the last 20519 hours. Cardiac markers: Recent Labs Component Name [...] Juarez, ANP-, Geriatrics 06/04/2022 2:17 PM Pager: [phone] NAL ANGIOGRAPHER Associated attestation - Dorothy Stahl MD - 06/04/2022 10:04 PM RETINAL ANGIOGRAPHER I have verified the documentation of the CABLE SPLICER ASSISTANT including all history, exam, and medical decision-making [...] Social: Lives at home with grandson in [facility]. Does not smoke or drink. Has [...] (SEROquel) 200 MG tablet saline nasal spray ([place]; [place]) 0.65 % nasal spray RCS: Memory very [...] by mouth once daily saline nasal spray ([place]; [place]) 0.65 % nasal spray [place] 1 (one) spray into each nostril as [...] input(s): PT, INR, APTT in the last 89835 hours. Cardiac markers: Recent Labs Component Name [...] senna). -Falls/Aspiration precautions. -Rest of plan per CABLE SPLICER ASSISTANT note. Thank you for this consult. We will continue to follow along with you. Please call with questions. Keely Stahl MD Geriatric attending Pager: [phone] documented in this encounter OR Notes * Brief Op Note - Padma Morales MD - 06/04/2022 8:42 AM CST Brief Op Note Procedure: C5-C6 laminectomy, C4-T2 posterior instrumented spinal fusion Patient Name: Kandace Cole Date of Service: 06/04/2022 Pre-Op Diagnosis: cervical myelopathy Post-Op Diagnosis: Same as above Surgeon(s) and Role: * Deon Taylor MD - Primary Life Skills Instructor(s): Padma Morales MD - Resident - Assisting [...] Implant Name Type Inv. Item Serial No. Bar Pilot Lot No. LRB No. Used Action Jean Bone Void 10Ml Dbm Grftn Algrf Ptty Jean Bone Void 10Ml Dbm Grftn Algrf Ptty Med[employer]onic Inc [id number] N/A 1 Implanted Jean Bone Void 10Ml Dbm Grftn Algrf Ptty Jean Bone Void 10Ml Dbm Grftn Algrf Ptty Medtronic Inc [id number] N/A 1 Implanted Graft Bone Canc 4-9.5Mm 15Cc Frzdr Chp Graft Bone Canc 4-9.5Mm 15Cc Frzdr Chp Allosource [id number] 1 Implanted Graft Bone Canc 4-9.5Mm 30Cc Algrf Frzdr Graft Bone Canc 4-9.5Mm 30Cc Algrf Frzdr [employer] [id number] N/A 1 Implanted 3.5 x 14mm screw Synthes Spine N/A 4 Implanted 4.0x 20mm screw Synthes Spine N/A 2 Implanted 5.0 x 24mm screw Synthes Spine N/A 2 Implanted 4.5 x 26mm screw Synthes Spine N/A 2 Implanted screw caps Synthes Spine N/A 10 Implanted 90mm rods Synthes Spine N/A 2 Implanted Padma Morales MD NAL ANGIOGRAPHER * Operative - Deon Taylor MD - 06/04/2022 8:42 AM CST Kandace Maria Douglas 1950 Date of Surgery 06/04/22 PREOPERATIVE DIAGNOSIS: cervical myelopathy POSTOPERATIVE DIAGNOSIS: same PROCEDURES: 1. Cervical Laminectomy C5/6 with partial medial facetectomies (33664) 2. Posterior Arthrodesis C4-T2 (00172, 85926n8) 3. Posterior instrumentation C4-T2 (89287) 4. Application of local autograft and allograft (, ) 5. Application and removal of cranial tongs () SURGEON: Deon Taylor MD CORRECTIONAL CASE RECORDS SUPERVISOR: Varun Matute MD ANESTHESIA: General. COMPLICATIONS: None. [...] for further surgery, blood clots, PE, stroke, CO,paralysis, . After we reviewed of the risks [...] the appropriate lines and leads were placed Naik-Yottaa tongs were positioned over the center rotation [...] SSEPs remained stable throughout. Deon Taylor MD NAL ANGIOGRAPHER documented in this encounter Plan of Treatment Upcoming Encounters Date Type Department Care Team (Late st Contact Info) Description 06/02/2024 1:45 PM RETINAL ANGIOGRAPHER Office Visit [facility] - Orthopedics [address] [place] [address], [place] [address] Deon Taylor MD [address] [place] [phone] documented as of this encounter Procedures Procedure Name Priority Date/Time Associated Diagnosis Comments XR THORACIC SPINE 2VW Routine 07/18/2022 11:04 AM CDT Degeneration of cervical intervertebral disc GLUCOSE - POINT OF CARE Routine 06/08/2022 7:47 AM RETINAL ANGIOGRAPHER CBC W/O DIFFERENTIAL Routine 06/08/2022 2:13 AM RETINAL ANGIOGRAPHER Degeneration of cervical intervertebral disc BASIC METABOLIC PANEL (CALCIUM TOTAL) Routine 06/08/2022 2:13 AM RETINAL ANGIOGRAPHER Degeneration of cervical intervertebral disc PHOSPHORUS BLOOD Routine 06/08/2022 2:13 AM RETINAL ANGIOGRAPHER MAGNESIUM BLOOD Routine 06/08/2022 2:13 AM RETINAL ANGIOGRAPHER GLUCOSE - POINT OF CARE Routine 06/07/2022 11:25 PM RETINAL ANGIOGRAPHER GLUCOSE - POINT OF CARE Routine 06/07/2022 9:31 PM RETINAL ANGIOGRAPHER GLUCOSE - POINT OF CARE Routine 06/07/2022 5:52 PM RETINAL ANGIOGRAPHER GLUCOSE - POINT OF CARE Routine 06/07/2022 12:00 PM RETINAL ANGIOGRAPHER GLUCOSE - POINT OF CARE Routine 06/07/2022 8:21 AM RETINAL ANGIOGRAPHER CBC W/O DIFFERENTIAL Routine 06/07/2022 2:24 AM RETINAL ANGIOGRAPHER Degeneration of cervical intervertebral disc BASIC METABOLIC PANEL (CALCIUM TOTAL) Routine 06/07/2022 2:24 AM RETINAL ANGIOGRAPHER Degeneration of cervical intervertebral disc PHOSPHORUS BLOOD Routine 06/07/2022 2:24 AM RETINAL ANGIOGRAPHER MAGNESIUM BLOOD Routine 06/07/2022 2:24 AM RETINAL ANGIOGRAPHER GLUCOSE - POINT OF CARE Routine 06/06/2022 8:38 PM RETINAL ANGIOGRAPHER GLUCOSE - POINT OF CARE Routine 06/06/2022 5:02 PM RETINAL ANGIOGRAPHER GLUCOSE - POINT OF CARE Routine 06/06/2022 12:26 PM RETINAL ANGIOGRAPHER TRANSFUSE RED BLOOD CELL LEUKOREDUCED UNIT(S) Routine 06/06/2022 9:42 AM RETINAL ANGIOGRAPHER PREPARE RBC LEUKOREDUCED UNIT Routine 06/06/2022 9:36 AM RETINAL ANGIOGRAPHER GLUCOSE - POINT OF CARE Routine 06/06/2022 8:00 AM RETINAL ANGIOGRAPHER PTH INTACT W/O CALCIUM AM Draw 06/06/2022 3:07 AM RETINAL ANGIOGRAPHER HEMOGLOBIN A1C Routine 06/06/2022 3:07 AM RETINAL ANGIOGRAPHER VITAMIN D 25-HYDROXY AM Draw 06/06/2022 3:07 AM RETINAL ANGIOGRAPHER CBC W/O DIFFERENTIAL Routine 06/06/2022 3:07 AM RETINAL ANGIOGRAPHER Degeneration of cervical intervertebral disc BASIC METABOLIC PANEL (CALCIUM TOTAL) Routine 06/06/2022 3:07 AM RETINAL ANGIOGRAPHER Degeneration of cervical intervertebral disc PHOSPHORUS BLOOD Routine 06/06/2022 3:07 AM RETINAL ANGIOGRAPHER MAGNESIUM BLOOD Routine 06/06/2022 3:07 AM RETINAL ANGIOGRAPHER FOLATE Routine 06/06/2022 3:07 AM RETINAL ANGIOGRAPHER VITAMIN B12 AM Draw 06/06/2022 3:07 AM RETINAL ANGIOGRAPHER IRON + TRANSFERRIN PANEL Routine 06/06/2022 3:07 AM RETINAL ANGIOGRAPHER FERRITIN Routine 06/06/2022 3:07 AM RETINAL ANGIOGRAPHER GLUCOSE - POINT OF CARE Routine 06/05/2022 8:51 PM RETINAL ANGIOGRAPHER GLUCOSE - POINT OF CARE Routine 06/05/2022 5:59 PM RETINAL ANGIOGRAPHER GLUCOSE - POINT OF CARE Routine 06/05/2022 4:27 PM RETINAL ANGIOGRAPHER GLUCOSE - POINT OF CARE Routine 06/05/2022 12:37 PM RETINAL ANGIOGRAPHER CBC W/O DIFFERENTIAL Timed 06/05/2022 12:32 PM RETINAL ANGIOGRAPHER XR CERVICAL SPINE 2 OR 3VW Routine 06/05/2022 9:35 AM RETINAL ANGIOGRAPHER Degeneration of cervical intervertebral disc GLUCOSE - POINT OF CARE Routine 06/05/2022 8:39 AM RETINAL ANGIOGRAPHER CBC W/O DIFFERENTIAL Routine 06/05/2022 4:58 AM RETINAL ANGIOGRAPHER Degeneration of cervical intervertebral disc BASIC METABOLIC PANEL (CALCIUM TOTAL) Routine 06/05/2022 4:58 AM RETINAL ANGIOGRAPHER Degeneration of cervical intervertebral disc GLUCOSE - POINT OF CARE Routine 06/04/2022 8:20 PM RETINAL ANGIOGRAPHER GLUCOSE - POINT OF CARE Routine 06/04/2022 11:51 AM RETINAL ANGIOGRAPHER FL JOSÉ LUIS SURGERY STAT 06/04/2022 11:30 AM RETINAL ANGIOGRAPHER Degeneration of cervical intervertebral disc FUSION POSTERIOR CERVICAL (PCF) 06/04/2022 8:42 AM RETINAL ANGIOGRAPHER Cervical myelopathy (HCC) Case Notes LATEX ALLERGY Special Needs PRONE, C-ARM CERVICAL ATTACHMENT JULIETH DONALD NEURO MONITORING POWER:4mm jose, 4mm cutter, 2mm cutter DEPUY: DELILAH MCGINNIS [phone]; [place] [phone]--reps notified mk 06/01 GLUCOSE - POINT OF CARE Routine 06/04/2022 6:39 AM RETINAL ANGIOGRAPHER TYPE + SCREEN PANEL MARLEE 06/04/2022 6:39 AM RETINAL ANGIOGRAPHER Preop examination documented in this encounter Results [...] MD on 07/18/2022 11:31 AM Lyla Blackwell TRANSLATOR INTERPRETER-APPLIED SCIENCE AND TECHNOLOGIES DEAN DIAGNOSTIC IMAG ING ORDERABLES * GLUCOSE - POINT OF CARE (06/08/2022 7:47 AM RETINAL ANGIOGRAPHER) Glucose WB/POC 95 70 - 115 mg/dL 06/08/2022 7:48 AM RETINAL ANGIOGRAPHER [facility] Specimen Type Arterial 06/08/2022 7:48 AM RETINAL ANGIOGRAPHER [facility] Blood BLOOD SPECIMEN / Unknown 06/08/2022 7:47 AM RETINAL ANGIOGRAPHER 06/08/2022 7:48 AM RETINAL ANGIOGRAPHER Ama Gonzalez MD LAB - POINT OF C ARE ORDERABLES [address] [address], [facility] [phone] * (ABNORMAL) PHOSPHORUS BLOOD (06/08/2022 2:13 AM RETINAL ANGIOGRAPHER) Phosphorus 2.5(L) 2.9 - 5.1 mg/dL 06/08/2022 3:12 AM RETINAL ANGIOGRAPHER [facility] Blood BLOOD SPECIMEN / Unknown Lab Venipuncture / Unknown 06/08/2022 2:13 AM RETINAL ANGIOGRAPHER 06/08/2022 2:44 AM RETINAL ANGIOGRAPHER Ama Gonzalez MD LAB - CHEMISTRY ORDERABLES [address] [address], [place] [phone] * MAGNESIUM BLOOD (06/08/2022 2:13 AM RETINAL ANGIOGRAPHER) Pathologist [facility] Magnesium 1.7 1.6 - 2.6 mg/dL 06/08/2022 3:12 AM [facility] Blood BLOOD SPECIMEN / Unknown Lab Venipuncture / Unknown 06/08/2022 2:13 AM RETINAL ANGIOGRAPHER 06/08/2022 2:44 AM RETINAL ANGIOGRAPHER Ama Gonzalez MD LAB - CHEMISTRY ORDERABLES [facility] [address] [place] [address], [facility] [phone] * (ABNORMAL) CBC W/O DIFFERENTIAL (06/08/2022 2:13 AM RETINAL ANGIOGRAPHER) [facility] WBC 9.2 3.5 - 10.5 10? 3 /uL 06/08/2022 2:54 AM [facility] RBC 2.64(L) 3.80 - 5.20 10? 6 /uL 06/08/2022 2:54 AM [facility] Hemoglobin 7.9(L) 12.0 - 15.6 g/dL 06/08/2022 2:54 AM [facility] Hematocrit 23.9(L) 35.0 - 45.0 % 06/08/2022 2:54 AM [facility] MCV 90.5 80.7 - 98.3 fL 06/08/2022 2:54 AM [facility] MCH 29.9 26.7 - 34.0 pg 06/08/2022 2:54 AM [facility] MCHC 33.1 30.8 - 35.9 g/dL 06/08/2022 2:54 AM [facility] RDW-SD 44.6 36.0 - 50.0 fL 06/08/2022 2:54 AM [facility] RDW-CV 13.4 11.2 - 14.8 % 06/08/2022 2:54 AM [facility] Platelet Count 287 150 - 400 10? 3 /uL 06/08/2022 2:54 AM [facility] MPV 10.1 9.4 - 12.9 fL 06/08/2022 2:54 AM [facility] nRBC Absolute 0.00 0 10? 3 /uL 06/08/2022 2:54 AM [facility] nRBC Auto 0.0 0 /100 WBC 06/08/2022 2:54 AM [facility] Blood BLOOD SPECIMEN / Unknown Lab Venipuncture / Unknown 06/08/2022 2:13 AM RETINAL ANGIOGRAPHER 06/08/2022 2:43 AM RETINAL ANGIOGRAPHER Deon Taylor MD LAB - HEMATOLOGY ORD ERABLES [facility] [address] [place] [address], [facility] [phone] * (ABNORMAL) BASIC METABOLIC PANEL (CALCIUM TOTAL) (06/08/2022 2:13 AM [facility]) BUN 25 7 - 26 mg/dL 06/08/2022 3:12 AM [facility] Creatinine 1.30(H) 0.56 - 0.96 mg/dL 06/08/2022 3:12 AM [facility] Sodium 132(L) 136 - 145 mmol/L 06/08/2022 3:12 AM [facility] Potassium 5.4(H) 3.5 - 4.5 mmol/L 06/08/2022 3:12 AM [facility] Chloride 97(L) 98 - 107 mmol/L 06/08/2022 3:12 AM [facility] CO2 24 22 - 29 mmol/L 06/08/2022 3:12 AM [facility] Glucose 97 70 - 115 mg/dL 06/08/2022 3:12 AM [facility] Calcium 8.4 8.4 - 10.2 mg/dL 06/08/2022 3:12 AM [facility] Anion Gap 16 8 - 18 06/08/2022 3:12 AM [facility] BUN/Creatinine Ratio 19 7 - 23 06/08/2022 3:12 AM [facility] Osmolality Calculated 278 270 - 300 mOsm/kg 06/08/2022 3:12 AM [facility] eGFR by CKD-EPI 44(L) >=90 mL/min/1.7 3 m2 06/08/2022 3:12 AM RETINAL ANGIOGRAPHER [facility] Blood BLOOD SPECIMEN / Unknown Lab Venipuncture / Unknown 06/08/2022 2:13 AM RETINAL ANGIOGRAPHER 06/08/2022 2:44 AM RETINAL ANGIOGRAPHER Deon Taylor MD LAB - CHEMISTRY CHELO QUIGLEY [address] [address], [place] [phone] * GLUCOSE - POINT OF CARE (06/07/2022 11:25 PM RETINAL ANGIOGRAPHER) Glucose WB/POC 94 70 - 115 mg/dL 06/08/2022 4:12 PM RETINAL ANGIOGRAPHER [facility] Specimen Type Cap Fingerstick 2022 4:12 PM RETINAL ANGIOGRAPHER [facility] Blood BLOOD SPECIMEN / Unknown 06/07/2022 11:25 PM RETINAL ANGIOGRAPHER 06/08/2022 4:12 PM RETINAL ANGIOGRAPHER Ama Gonzalez MD LAB - POINT OF C ARE ORDERABLES [address] [address], [place] [phone] * GLUCOSE - POINT OF CARE (06/07/2022 9:31 PM RETINAL ANGIOGRAPHER) Glucose WB/POC 82 70 - 115 mg/dL 06/07/2022 9:36 PM RETINAL ANGIOGRAPHER [facility] Specimen Type Cap Fingerstick 2022 9:36 PM RETINAL ANGIOGRAPHER [facility] Blood BLOOD SPECIMEN / Unknown 06/07/2022 9:31 PM RETINAL ANGIOGRAPHER 06/07/2022 9:36 PM RETINAL ANGIOGRAPHER Ama Gonzalez MD LAB - POINT OF C ARE ORDERABLES [address] [address], [place] [phone] * GLUCOSE - POINT OF CARE (06/07/2022 5:52 PM RETINAL ANGIOGRAPHER) Glucose WB/POC 103 70 - 115 mg/dL 06/07/2022 5:52 PM RETINAL ANGIOGRAPHER [facility] Specimen Type Arterial 06/07/2022 5:52 PM RETINAL ANGIOGRAPHER [facility] Blood BLOOD SPECIMEN / Unknown 06/07/2022 5:52 PM RETINAL ANGIOGRAPHER 06/07/2022 5:52 PM RETINAL ANGIOGRAPHER Ama Gonzalez MD LAB - POINT OF ARE ORDERABLES Performing Organization Address City/[facility]/ZIP Co de Phone Number [address] [address], [place] [phone] * (ABNORMAL) GLUCOSE - POINT OF CARE (06/07/2022 12:00 PM RETINAL ANGIOGRAPHER) Glucose WB/POC 153(H) 70 - 115 mg/dL 06/07/2022 12:04 PM RETINAL ANGIOGRAPHER [facility] Specimen Type Cap Fingerstick 2022 12:04 PM RETINAL ANGIOGRAPHER [facility] Blood BLOOD SPECIMEN / Unknown 06/07/2022 12:00 PM RETINAL ANGIOGRAPHER 06/07/2022 12:04 PM RETINAL ANGIOGRAPHER Ama Gonzalez MD LAB - POINT OF ARE ORDERABLES Performing Organization Address City/[facility]/ZIP Co de Phone Number [address] [address], [place] [phone] * GLUCOSE - POINT OF CARE (06/07/2022 8:21 AM RETINAL ANGIOGRAPHER) Glucose WB/POC 91 70 - 115 mg/dL 06/07/2022 8:24 AM RETINAL ANGIOGRAPHER [facility] Specimen Type Cap Fingerstick 2022 8:24 AM RETINAL ANGIOGRAPHER [facility] Blood BLOOD SPECIMEN / Unknown 06/07/2022 8:21 AM RETINAL ANGIOGRAPHER 06/07/2022 8:24 AM RETINAL ANGIOGRAPHER Ama Gonzalez MD LAB - POINT OF C ARE ORDERABLES [address] [address], [place] [phone] * (ABNORMAL) PHOSPHORUS BLOOD (06/07/2022 2:24 AM RETINAL ANGIOGRAPHER) Pathologist [facility] Phosphorus 2.7(L) 2.9 - 5.1 mg/dL 06/07/2022 3:34 AM RETINAL ANGIOGRAPHER [facility] Blood BLOOD SPECIMEN / Unknown Lab Venipuncture / Unknown 06/07/2022 2:24 AM RETINAL ANGIOGRAPHER 06/07/2022 3:01 AM RETINAL ANGIOGRAPHER Ama Gonzalez MD LAB - CHEMISTRY ORDERABLES Performing Organization Address City/[facility]/ZIP Co de Phone Number [address] [address], [place] [phone] * MAGNESIUM BLOOD (06/07/2022 2:24 AM RETINAL ANGIOGRAPHER) [facility] Magnesium 2.1 1.6 - 2.6 mg/dL 06/07/2022 3:34 AM RETINAL ANGIOGRAPHER [facility] Blood BLOOD SPECIMEN / Unknown Lab Venipuncture / Unknown 06/07/2022 2:24 AM RETINAL ANGIOGRAPHER 06/07/2022 3:01 AM RETINAL ANGIOGRAPHER Ama Gonzalze MD LAB - CHEMISTRY ORDERABLES Performing Organization Address City/[facility]/ZIP Co de Phone Number [address] [address], [place] [phone] * (ABNORMAL) CBC W/O DIFFERENTIAL (06/07/2022 2:24 AM RETINAL ANGIOGRAPHER) Pathologist [facility] WBC 11.8(H) 3.5 - 10.5 10? 3 /uL 06/07/2022 3:19 AM [facility] RBC 2.85(L) 3.80 - 5.20 10? 6 /uL 06/07/2022 3:19 AM [facility] Hemoglobin 8.5(L) 12.0 - 15.6 g/dL 06/07/2022 3:19 AM [facility] Hematocrit 25.2(L) 35.0 - 45.0 % 06/07/2022 3:19 AM [facility] MCV 88.4 80.7 - 98.3 fL 06/07/2022 3:19 AM [facility] MCH 29.8 26.7 - 34.0 pg 06/07/2022 3:19 AM [facility] MCHC 33.7 30.8 - 35.9 g/dL 06/07/2022 3:19 AM [facility] RDW-SD 43.3 36.0 - 50.0 fL 06/07/2022 3:19 AM [facility] RDW-CV 13.2 11.2 - 14.8 % 06/07/2022 3:19 AM [facility] Platelet Count 291 150 - 400 10? 3 /uL 06/07/2022 3:19 AM [facility] MPV 10.0 9.4 - 12.9 fL 06/07/2022 3:19 AM [facility] nRBC Absolute 0.00 0 10? 3 /uL 06/07/2022 3:19 AM [facility] nRBC Auto 0.0 0 /100 WBC 06/07/2022 3:19 AM [facility] Blood BLOOD SPECIMEN / Unknown Lab Venipuncture / Unknown 06/07/2022 2:24 AM [facility] 06/07/2022 3:01 AM [facility] Deon Taylor MD LAB - HEMATOLOGY ORD ERABLES Performing Organization Address [facility] Co de Phone Number [address] [id number], [facility] [phone] * (ABNORMAL) BASIC METABOLIC PANEL (CALCIUM TOTAL) (06/07/2022 2:24 AM [facility]) BUN 25 7 - 26 mg/dL 06/07/2022 3:34 AM [facility] Creatinine 1.26(H) 0.56 - 0.96 mg/dL 06/07/2022 3:34 AM [facility] Sodium 130(L) 136 - 145 mmol/L 06/07/2022 3:34 AM [facility] Potassium 5.3(H) 3.5 - 4.5 mmol/L 06/07/2022 3:34 AM [facility] Chloride 102 98 - 107 mmol/L 06/07/2022 3:34 AM [facility] CO2 24 22 - 29 mmol/L 06/07/2022 3:34 AM [facility] Glucose 121(H) 70 - 115 mg/dL 06/07/2022 3:34 AM [facility] Calcium 8.8 8.4 - 10.2 mg/dL 06/07/2022 3:34 AM [facility] Anion Gap 9 8 - 18 06/07/2022 3:34 AM [facility] BUN/Creatinine Ratio 20 7 - 23 06/07/2022 3:34 AM [facility] Osmolality Calculated 276 270 - 300 mOsm/kg 06/07/2022 3:34 AM [facility] eGFR by CKD-EPI 45(L) >=90 mL/min/1.7 3 m2 06/07/2022 3:34 AM [facility] Blood BLOOD SPECIMEN / Unknown Lab Venipuncture / Unknown 06/07/2022 2:24 AM RETINAL ANGIOGRAPHER 06/07/2022 3:01 AM RETINAL ANGIOGRAPHER Deon Taylor MD LAB - CHEMISTRY CHELO QUIGLEY [facility] [address] [place] [address], [facility] [phone] * (ABNORMAL) GLUCOSE - POINT OF CARE (06/06/2022 8:38 PM RETINAL ANGIOGRAPHER) Glucose WB/POC 137(H) 70 - 115 mg/dL 06/06/2022 8:39 PM [facility] Specimen Type Cap Fingerstick 2022 8:39 PM [facility] Blood BLOOD SPECIMEN / Unknown 06/06/2022 8:38 PM RETINAL ANGIOGRAPHER 06/06/2022 8:39 PM RETINAL ANGIOGRAPHER Ama Gonzalez MD LAB - POINT OF C ARE ORDERABLES [address] [address], [place] [phone] * (ABNORMAL) GLUCOSE - POINT OF CARE (06/06/2022 5:02 PM RETINAL ANGIOGRAPHER) Glucose WB/POC 241(H) 70 - 115 mg/dL 06/06/2022 5:03 PM RETINAL ANGIOGRAPHER [facility] Specimen Type Arterial 06/06/2022 5:03 PM RETINAL ANGIOGRAPHER [facility] Blood BLOOD SPECIMEN / Unknown 06/06/2022 5:02 PM RETINAL ANGIOGRAPHER 06/06/2022 5:03 PM RETINAL ANGIOGRAPHER Ama Gonzalez MD LAB - POINT [facility] ARE ORDERABLES Performing Organization Address City/[facility]/ZIP Co de Phone Number [address] [address], [place] [phone] * (ABNORMAL) GLUCOSE - POINT OF CARE (06/06/2022 12:26 PM RETINAL ANGIOGRAPHER) Glucose WB/POC 165(H) 70 - 115 mg/dL 06/06/2022 12:27 PM RETINAL ANGIOGRAPHER [facility] Specimen Type Arterial 06/06/2022 12:27 PM RETINAL ANGIOGRAPHER [facility] Blood BLOOD SPECIMEN / Unknown 06/06/2022 12:26 PM RETINAL ANGIOGRAPHER 06/06/2022 12:27 PM RETINAL ANGIOGRAPHER Ama Gonzalez MD LAB - POINT [facility] ARE ORDERABLES [address] [address], [place] [phone] * TRANSFUSE RED BLOOD CELL LEUKOREDUCED UNIT(S) (06/06/2022 12:20 PM RETINAL ANGIOGRAPHER) Ama Gonzalez MD NURSING - BLOOD PROD TRANSFUSION * TRANSFUSE RED BLOOD CELL LEUKOREDUCED UNIT(S), 1 Units (06/06/2022 12:20 PM RETINAL ANGIOGRAPHER) Ama Gonzalez MD NURSING - BLOOD PROD TRANSFUSION * PREPARE (CROSSMATCH) RBC UNIT(S), 1 Units (06/06/2022 9:36 AM RETINAL ANGIOGRAPHER) Unit Description AS1 LR PRBC [facility] Unit ABO A [facility] Unit Rh POS [facility] Product Number R02 [facility] B LO[facility] LAB Unit Donor # [id number] [facility] Unit Status transfused [facility] Product Code [id number] [facility] Blood Type Barcode 6200 [facility] Expiration Date [id number] S BLOOD BANK LAB Blood Bank BLOOD SPECIMEN / Unknown 06/04/2022 6:44 AM RETINAL ANGIOGRAPHER Ama Gonzalez MD LAB - BLOOD BANK ORDERABLES [facility] [address] [place] [address], [place] [phone] * (ABNORMAL) GLUCOSE - POINT OF CARE (06/06/2022 8:00 AM RETINAL ANGIOGRAPHER) Glucose WB/POC 125(H) 70 - 115 mg/dL 06/06/2022 8:01 AM RETINAL ANGIOGRAPHER [facility] Specimen Type Arterial 06/06/2022 8:01 AM RETINAL ANGIOGRAPHER [facility] Blood BLOOD SPECIMEN / Unknown 06/06/2022 8:00 AM RETINAL ANGIOGRAPHER 06/06/2022 8:01 AM RETINAL ANGIOGRAPHER Ama Gonzalez MD LAB - POINT OF C ARE ORDERABLES [facility] [address] [place] [address], [place] [phone] * PHOSPHORUS BLOOD (06/06/2022 3:07 AM RETINAL ANGIOGRAPHER) Phosphorus 3.2 2.9 - 5.1 mg/dL 06/06/2022 4:03 AM RETINAL ANGIOGRAPHER [facility] Blood BLOOD SPECIMEN / Unknown Lab Venipuncture / Unknown 06/06/2022 3:07 AM RETINAL ANGIOGRAPHER 06/06/2022 3:29 AM RETINAL ANGIOGRAPHER Ama Gonzalez MD LAB - CHEMISTRY ORDERABLES [address] [address], [facility] [phone] * MAGNESIUM BLOOD (06/06/2022 3:07 AM RETINAL ANGIOGRAPHER) Magnesium 1.6 1.6 - 2.6 mg/dL 06/06/2022 4:03 AM [facility] Blood BLOOD SPECIMEN / Unknown Lab Venipuncture / Unknown 06/06/2022 3:07 AM RETINAL ANGIOGRAPHER 06/06/2022 3:29 AM RETINAL ANGIOGRAPHER Ama Gonzalez MD LAB - CHEMISTRY ORDERABLES [address] [address], [facility] [phone] * (ABNORMAL) CBC W/O DIFFERENTIAL (06/06/2022 3:07 AM RETINAL ANGIOGRAPHER) WBC 8.5 3.5 - 10.5 10? 3 /uL 06/06/2022 3:32 AM [facility] RBC 2.26(L) 3.80 - 5.20 10? 6 /uL 06/06/2022 3:32 AM [facility] Hemoglobin 6.7(L) 12.0 - 15.6 g/dL 06/06/2022 3:32 AM [facility] Hematocrit 20.8(L) 35.0 - 45.0 % 06/06/2022 3:32 AM [facility] MCV 92.0 80.7 - 98.3 fL 06/06/2022 3:32 AM [facility] MCH 29.6 26.7 - 34.0 pg 06/06/2022 3:32 AM [facility] MCHC 32.2 30.8 - 35.9 g/dL 06/06/2022 3:32 AM [facility] RDW-SD 43.7 36.0 - 50.0 fL 06/06/2022 3:32 AM [facility] RDW-CV 13.2 11.2 - 14.8 % 06/06/2022 3:32 AM [facility] Platelet Count 254 150 - 400 10? 3 /uL 06/06/2022 3:32 AM [facility] MPV 9.7 9.4 - 12.9 fL 06/06/2022 3:32 AM [facility] nRBC Absolute 0.00 0 10? 3 /uL 06/06/2022 3:32 AM [facility] nRBC Auto 0.0 0 /100 WBC 06/06/2022 3:32 AM [facility] Blood BLOOD SPECIMEN / Unknown Lab Venipuncture / Unknown 06/06/2022 3:07 AM RETINAL ANGIOGRAPHER 06/06/2022 3:29 AM RETINAL ANGIOGRAPHER Deon Taylor MD LAB - HEMATOLOGY ORD ERABLES Performing Organization Address [facility] Co de Phone Number [address] [address] [phone] * (ABNORMAL) BASIC METABOLIC PANEL (CALCIUM TOTAL) (06/06/2022 3:07 AM [facility]) BUN 25 7 - 26 mg/dL 06/06/2022 4:03 AM [facility] Creatinine 1.34(H) 0.56 - 0.96 mg/dL 06/06/2022 4:03 AM [facility] Sodium 129(L) 136 - 145 mmol/L 06/06/2022 4:03 AM [facility] Potassium 4.6(H) 3.5 - 4.5 mmol/L 06/06/2022 4:03 AM [facility] Chloride 100 98 - 107 mmol/L 06/06/2022 4:03 AM [facility] CO2 22 22 - 29 mmol/L 06/06/2022 4:03 AM [facility] Glucose 112 70 - 115 mg/dL 06/06/2022 4:03 AM [facility] Calcium 8.9 8.4 - 10.2 mg/dL 06/06/2022 4:03 AM [facility] Anion Gap 12 8 - 18 06/06/2022 4:03 AM [facility] BUN/Creatinine Ratio 19 7 - 23 06/06/2022 4:03 AM [facility] Osmolality Calculated 273 270 - 300 mOsm/kg 06/06/2022 4:03 AM [facility] eGFR by CKD-EPI 42(L) >=90 mL/min/1.7 3 m2 06/06/2022 4:03 AM [facility] Blood BLOOD SPECIMEN / Unknown Lab Venipuncture / Unknown 06/06/2022 3:07 AM RETINAL ANGIOGRAPHER 06/06/2022 3:29 AM RETINAL ANGIOGRAPHER Deon Taylor MD LAB - CHEMISTRY CHELO QUIGLEY [facility] [address] [place] [address], [place] [phone] * FOLATE (06/06/2022 3:07 AM RETINAL ANGIOGRAPHER) Folate 9.4 7.0 - 31.4 ng/mL 06/06/2022 4:35 AM [facility] Blood BLOOD SPECIMEN / Unknown Lab Venipuncture / Unknown 06/06/2022 3:07 AM RETINAL ANGIOGRAPHER 06/06/2022 3:29 AM RETINAL ANGIOGRAPHER Ama Gonzalez MD LAB - CHEMISTRY ORDERABLES [facility] [address] [place] [address], [place] [phone] * VITAMIN B12 (06/06/2022 3:07 AM RETINAL ANGIOGRAPHER) Vitamin B12 382 213 - 816 pg/mL 06/06/2022 4:35 AM [facility] Blood BLOOD SPECIMEN / Unknown Lab Venipuncture / Unknown 06/06/2022 3:07 AM RETINAL ANGIOGRAPHER 06/06/2022 3:29 AM RETINAL ANGIOGRAPHER Ama Gonzalez MD LAB - CHEMISTRY ORDERABLES [address] [address], [place] [phone] * FERRITIN (06/06/2022 3:07 AM RETINAL ANGIOGRAPHER) [facility] Ferritin 94 13 - 204 ng/mL 06/06/2022 4:10 AM [facility] Blood BLOOD SPECIMEN / Unknown Lab Venipuncture / Unknown 06/06/2022 3:07 AM RETINAL ANGIOGRAPHER 06/06/2022 3:25 AM RETINAL ANGIOGRAPHER Ama Gonzalez MD LAB - CHEMISTRY ORDERABLES [address] [address], [place] [phone] * (ABNORMAL) IRON + TRANSFERRIN PANEL (06/06/2022 3:07 AM RETINAL ANGIOGRAPHER) [facility] Iron 20(L) 40 - 150 ug/dL 06/06/2022 3:53 AM [facility] Transferrin 162(L) 174 - 382 mg/dL 06/06/2022 3:53 AM [facility] Transferrin Saturation % 10(L) 16 - 50 % 06/06/2022 3:53 AM [facility] TIBC Calculated 203(L) 240 - 450 ug/dL 06/06/2022 3:53 AM [facility] Blood BLOOD SPECIMEN / Unknown Lab Venipuncture / Unknown 06/06/2022 3:07 AM RETINAL ANGIOGRAPHER 06/06/2022 3:25 AM RETINAL ANGIOGRAPHER Ama Gonzalez MD LAB - CHEMISTRY ORDERABLES [address] [address], [place] [phone] * HEMOGLOBIN A1C (06/06/2022 3:07 AM RETINAL ANGIOGRAPHER) [facility] Hemoglobin A1c 5.3 <=5.6 % 06/06/2022 3:38 PM [facility] Estimated Average Glucose 105 mg/dL 06/06/2022 3:38 PM [facility] Comment: HbA1c Interpretation: Normal : < 5.7% Pre-diabetes: 5.7-6.4% Diabetes: Equal to or greater than 6.5% Test results diagnostic of diabetes should be repeated for confirmation. Treatment target values recommended by ADA and other clinical organizations should be used to evaluate metabolic control in patients. Reference: [place] [employer], Standards of Care in Diabetes -2020 In patients 70 years and older consider HbA1c target range of 7.0-7.5% (Reference: Oswaldo Liz et al. JAMDA. 2012) The Sebia assay for the measurement of HbA1c is a National Glycohemoglobin Standardization Program (NGSP) certified method. Blood BLOOD SPECIMEN / Unknown Lab Venipuncture / Unknown 06/06/2022 3:07 AM RETINAL ANGIOGRAPHER 06/06/2022 3:28 AM RETINAL ANGIOGRAPHER Ama Gonzalez MD LAB - CHEMISTRY ORDERABLES [address] [address], [facility] [phone] * PTH INTACT W/O CALCIUM (06/06/2022 3:07 AM RETINAL ANGIOGRAPHER) PTH Intact 72.1 8.0 - 77.0 pg/mL 06/06/2022 4:04 AM [facility] Blood BLOOD SPECIMEN / Unknown Lab Venipuncture / Unknown 06/06/2022 3:07 AM RETINAL ANGIOGRAPHER 06/06/2022 3:32 AM RETINAL ANGIOGRAPHER Deon Taylor MD LAB - CHEMISTRY CHELO QUIGLEY [address] [address], [facility] [phone] * VITAMIN D 25-HYDROXY (06/06/2022 3:07 AM RETINAL ANGIOGRAPHER) Vitamin D, 25 Hydroxy 53.0 30.0 - 80.0 ng/mL 06/06/2022 4:35 AM [facility] Comment: The recommendations for 25-Hydroxy Vitamin [...] Lab Venipuncture / Unknown 06/06/2022 3:07 AM RETINAL ANGIOGRAPHER 06/06/2022 3:29 AM RETINAL ANGIOGRAPHER Deon Taylor MD LAB - CHEMISTRY CHELO QUIGLEY Performing Organization Address [facility] Co de Phone Number [address] [address], [facility] [phone] * (ABNORMAL) GLUCOSE - POINT OF CARE (06/05/2022 8:51 PM RETINAL ANGIOGRAPHER) Pathologist [facility] Glucose WB/POC 152(H) 70 - 115 mg/dL 06/05/2022 8:52 PM RETINAL ANGIOGRAPHER [facility] Specimen Type Cap Fingerstick 2022 8:52 PM RETINAL ANGIOGRAPHER [facility] Blood BLOOD SPECIMEN / Unknown 06/05/2022 8:51 PM RETINAL ANGIOGRAPHER 06/05/2022 8:52 PM RETINAL ANGIOGRAPHER Ama Gonzalez MD LAB - POINT OF C ARE ORDERABLES Performing Organization Address [facility] Co de Phone Number [address] [address], [place] [phone] * (ABNORMAL) GLUCOSE - POINT OF CARE (06/05/2022 5:59 PM RETINAL ANGIOGRAPHER) Glucose WB/POC 185(H) 70 - 115 mg/dL 06/05/2022 6:02 PM RETINAL ANGIOGRAPHER [facility] Specimen Type Cap Fingerstick 2022 6:02 PM RETINAL ANGIOGRAPHER [facility] Blood BLOOD SPECIMEN / Unknown 06/05/2022 5:59 PM RETINAL ANGIOGRAPHER 06/05/2022 6:02 PM RETINAL ANGIOGRAPHER Ama Gonzalez MD LAB - POINT OF ARE ORDERABLES [address] [address], [place] [phone] * (ABNORMAL) GLUCOSE - POINT OF CARE (06/05/2022 4:27 PM RETINAL ANGIOGRAPHER) Glucose WB/POC 208(H) 70 - 115 mg/dL 06/05/2022 4:28 PM RETINAL ANGIOGRAPHER [facility] Specimen Type Arterial 06/05/2022 4:28 PM RETINAL ANGIOGRAPHER [facility] Blood BLOOD SPECIMEN / Unknown 06/05/2022 4:27 PM RETINAL ANGIOGRAPHER 06/05/2022 4:28 PM RETINAL ANGIOGRAPHER Ama Gonzalez MD LAB - POINT OF ARE ORDERABLES [facility] [address] [place] [address], [place] [phone] * (ABNORMAL) GLUCOSE - POINT OF CARE (06/05/2022 12:37 PM RETINAL ANGIOGRAPHER) Glucose WB/POC 163(H) 70 - 115 mg/dL 06/05/2022 12:37 PM RETINAL ANGIOGRAPHER [facility] Specimen Type Arterial 06/05/2022 12:37 PM RETINAL ANGIOGRAPHER [facility] Blood BLOOD SPECIMEN / Unknown 06/05/2022 12:37 PM RETINAL ANGIOGRAPHER 06/05/2022 12:37 PM RETINAL ANGIOGRAPHER Ama Gonzalez MD LAB - POINT OF C ARE ORDERABLES [facility] [address] [place] [address], [facility] [phone] * (ABNORMAL) CBC W/O DIFFERENTIAL (06/05/2022 12:32 PM RETINAL ANGIOGRAPHER) WBC 10.0 3.5 - 10.5 10? 3 /uL 06/05/2022 12:45 PM [facility] RBC 2.31(L) 3.80 - 5.20 10? 6 /uL 06/05/2022 12:45 PM [facility] Hemoglobin 7.0(L) 12.0 - 15.6 g/dL 06/05/2022 12:45 PM [facility] Hematocrit 20.9(L) 35.0 - 45.0 % 06/05/2022 12:45 PM [facility] MCV 90.5 80.7 - 98.3 fL 06/05/2022 12:45 PM [facility] MCH 30.3 26.7 - 34.0 pg 06/05/2022 12:45 PM [facility] MCHC 33.5 30.8 - 35.9 g/dL 06/05/2022 12:45 PM [facility] RDW-SD 43.0 36.0 - 50.0 fL 06/05/2022 12:45 PM [facility] RDW-CV 13.2 11.2 - 14.8 % 06/05/2022 12:45 PM [facility] Platelet Count 259 150 - 400 10? 3 /uL 06/05/2022 12:45 PM [facility] MPV 9.5 9.4 - 12.9 fL 06/05/2022 12:45 PM [facility] nRBC Absolute 0.00 0 10? 3 /uL 06/05/2022 12:45 PM [facility] nRBC Auto 0.0 0 /100 WBC 06/05/2022 12:45 PM [facility] Blood BLOOD SPECIMEN / Unknown Lab Venipuncture / Unknown 06/05/2022 12:32 PM RETINAL ANGIOGRAPHER 06/05/2022 12:37 PM RETINAL ANGIOGRAPHER Ama Gonzalez MD LAB - HEMATOLOGY ORDERABLES [facility] [address] [place] [address], [facility] [phone] * XR CERVICAL SPINE 2 OR 3VW (06/05/2022 9:35 AM RETINAL ANGIOGRAPHER) Anatomical Region Laterality Modality Spine Radiographic Vivian ging 06/05/2022 11:4 5 AM RETINAL ANGIOGRAPHER Impressions 06/05/2022 3:11 PM RETINAL ANGIOGRAPHER IMPRESSION: Interval posterior spinal fusion of C4-T2. Poor delineation of the spine in this region in lateral projection. Report drafted by Jon Arias MD (residential concierge) Kamila Narvaez MD have personally reviewed and interpreted this examination/study. > Interpreting Provider: Kamila Barber MD on 06/05/2022 3:11 PM Narrative 06/05/2022 3:11 PM RETINAL ANGIOGRAPHER PROCEDURE: ??XR CERVICAL SPINE 2 OR 3VW, DATE/TIME OF EXAM: ??06/05/2022 9:37 AM, LOCATION [facility] INDICATION: M50.30: Degeneration of cervical intervertebral disc [...] 3VW, DATE/TIME OF EXAM: 39:37 AM, LOCATION [facility] INDICATION: M50.30: Degeneration of cervical intervertebral disc [...] Report drafted by Jon Arias MD (residential concierge) I, Kamila Barber MD have personally reviewed and interpreted this examination/study. > Interpreting Provider: Kamila Barber MD on 06/05/2022 3:11 PM Lyla Blackwell TRANSLATOR INTERPRETER-[employer] [facility] ORDERABLES * GLUCOSE - POINT OF CARE (06/05/2022 8:39 AM RETINAL ANGIOGRAPHER) Glucose WB/POC 109 70 - 115 mg/dL 06/05/2022 8:40 AM RETINAL ANGIOGRAPHER [facility] Specimen Type Arterial 06/05/2022 8:40 AM RETINAL ANGIOGRAPHER [facility] Blood BLOOD SPECIMEN / Unknown 06/05/2022 8:39 AM RETINAL ANGIOGRAPHER 06/05/2022 8:40 AM RETINAL ANGIOGRAPHER Deon Taylor MD LAB - POINT OF CARE ORDERABLES [facility] [address] [place] [address], [facility] [phone] * (ABNORMAL) CBC W/O DIFFERENTIAL (06/05/2022 4:58 AM RETINAL ANGIOGRAPHER) WBC 10.4 3.5 - 10.5 10? 3 /uL 06/05/2022 5:27 AM [facility] RBC 2.41(L) 3.80 - 5.20 10? 6 /uL 06/05/2022 5:27 AM [facility] Hemoglobin 7.1(L) 12.0 - 15.6 g/dL 06/05/2022 5:27 AM [facility] Hematocrit 22.1(L) 35.0 - 45.0 % 06/05/2022 5:27 AM [facility] MCV 91.7 80.7 - 98.3 fL 06/05/2022 5:27 AM [facility] MCH 29.5 26.7 - 34.0 pg 06/05/2022 5:27 AM [facility] MCHC 32.1 30.8 - 35.9 g/dL 06/05/2022 5:27 AM [facility] RDW-SD 43.3 36.0 - 50.0 fL 06/05/2022 5:27 AM [facility] RDW-CV 13.1 11.2 - 14.8 % 06/05/2022 5:27 AM [facility] Platelet Count 273 150 - 400 10? 3 /uL 06/05/2022 5:27 AM [facility] MPV 9.8 9.4 - 12.9 fL 06/05/2022 5:27 AM [facility] nRBC Absolute 0.00 0 10? 3 /uL 06/05/2022 5:27 AM [facility] nRBC Auto 0.0 0 /100 WBC 06/05/2022 5:27 AM [facility] Blood BLOOD SPECIMEN / Unknown Lab Venipuncture / Unknown 06/05/2022 4:58 AM RETINAL ANGIOGRAPHER 06/05/2022 5:16 AM [facility] Deon Taylor MD LAB - HEMATOLOGY ORD ERABLES [facility] [address] [place] [address], [facility] [phone] * (ABNORMAL) BASIC METABOLIC PANEL (CALCIUM TOTAL) (06/05/2022 4:58 AM RETINAL ANGIOGRAPHER) BUN 27(H) 7 - 26 mg/dL 06/05/2022 5:43 AM [facility] Creatinine 1.40(H) 0.56 - 0.96 mg/dL 06/05/2022 5:43 AM [facility] Sodium 132(L) 136 - 145 mmol/L 06/05/2022 5:43 AM [facility] Potassium 5.2(H) 3.5 - 4.5 mmol/L 06/05/2022 5:43 AM [facility] Chloride 103 98 - 107 mmol/L 06/05/2022 5:43 AM [facility] CO2 19(L) 22 - 29 mmol/L 06/05/2022 5:43 AM [facility] Glucose 107 70 - 115 mg/dL 06/05/2022 5:43 AM [facility] Calcium 8.5 8.4 - 10.2 mg/dL 06/05/2022 5:43 AM [facility] Anion Gap 15 8 - 18 06/05/2022 5:43 AM [facility] BUN/Creatinine Ratio 19 7 - 23 06/05/2022 5:43 AM [facility] Osmolality Calculated 280 270 - 300 mOsm/kg 06/05/2022 5:43 AM [facility] eGFR by CKD-EPI 40(L) >=90 mL/min/1.7 3 m2 06/05/2022 5:43 AM [facility] Blood BLOOD SPECIMEN / Unknown Lab Venipuncture / Unknown 06/05/2022 4:58 AM RETINAL ANGIOGRAPHER 06/05/2022 5:17 AM [facility] Deon Taylor MD LAB - CHEMISTRY CHELO QUIGLEY [facility] Organization Address City/State/ZIP Co de Phone Number [facility] [address] [place] [address], [facility] [phone] * (ABNORMAL) GLUCOSE - POINT OF CARE (06/04/2022 8:20 PM RETINAL ANGIOGRAPHER) Pathologist [facility] Glucose WB/POC 120(H) 70 - 115 mg/dL 06/04/2022 8:21 PM RETINAL ANGIOGRAPHER [facility] Specimen Type Cap Fingerstick 2022 8:21 PM RETINAL ANGIOGRAPHER [facility] Blood BLOOD SPECIMEN / Unknown 06/04/2022 8:20 PM RETINAL ANGIOGRAPHER 06/04/2022 8:21 PM RETINAL ANGIOGRAPHER Deon Taylor MD LAB - POINT OF CARE ORDERABLES Performing Organization Address City/[facility]/ZIP Co de Phone Number [facility] [address] [place] [address], [place] [phone] * GLUCOSE - POINT OF CARE (06/04/2022 11:51 AM RETINAL ANGIOGRAPHER) Glucose WB/POC 111 70 - 115 mg/dL 06/04/2022 11:56 AM RETINAL ANGIOGRAPHER [facility] Specimen Type Cap Fingerstick 2022 11:56 AM RETINAL ANGIOGRAPHER [facility] Blood BLOOD SPECIMEN / Unknown 06/04/2022 11:51 AM RETINAL ANGIOGRAPHER 06/04/2022 11:55 AM RETINAL ANGIOGRAPHER Deon Taylor MD LAB - POINT OF CARE ORDERABLES Performing Organization Address [facility]/ZIP Co de Phone Number [address] [address], [place] [phone] * [place] JOS[facility] LU[facility] SURGERY (06/04/2022 11:30 AM RETINAL ANGIOGRAPHER) Narrative [facility] - 06/04/2022 12:52 PM RETINAL ANGIOGRAPHER Fluoroscopy was used for this exam in the OR. Please see the Operative report. Deon Taylor MD FLUOROSCOPY ORDERABL ES Performing Organization Address City/[facility]/ZIP Co de Phone Number [facility] * (ABNORMAL) GLUCOSE - POINT OF CARE (06/04/2022 6:39 AM RETINAL ANGIOGRAPHER) Glucose WB/POC 130(H) 70 - 115 mg/dL 06/05/2022 12:40 PM RETINAL ANGIOGRAPHER [facility] Specimen Type Venous 06/05/2022 12:40 PM RETINAL ANGIOGRAPHER [facility] Blood BLOOD SPECIMEN / Unknown 06/04/2022 6:39 AM RETINAL ANGIOGRAPHER 06/05/2022 12:40 PM RETINAL ANGIOGRAPHER Deon Taylor MD LAB - POINT OF CARE ORDERABLES [facility] [address] [place] [address], [place] [phone] * TYPE + SCREEN PANEL (06/04/2022 6:39 AM RETINAL ANGIOGRAPHER) Antibody Screen NEG 7:24 AM RETINAL ANGIOGRAPHER [facility] ABO Rh A POS 06/04/2022 7:24 AM RETINAL ANGIOGRAPHER [facility] Blood Bank BLOOD SPECIMEN / Unknown Venipuncture / Unknown 06/04/2022 6:39 AM RETINAL ANGIOGRAPHER 06/04/2022 6:44 AM RETINAL ANGIOGRAPHER Provider Unknown LAB - BLOOD BANK ORD ERABLES Performing Organization Address City/[facility]/ZIP Co de Phone Number [facility] [address] [place] [address], [place] [phone] documented in this encounter Visit Diagnoses Diagnosis [...] Post-op $ New Bag/Syringe 06/05/2022 7:16 AM RETINAL ANGIOGRAPHER 75 mL/hr $ New Bag/Syringe 06/04/2022 6:13 PM RETINAL ANGIOGRAPHER 75 mL/ hr 0.9% NaCl injection 1-10 [...] 8 hours. $ Given 06/08/2022 8:08 PM RETINAL ANGIOGRAPHER 3 mL $ Given 06/08/2022 2:36 PM RETINAL ANGIOGRAPHER 3 mL $ Given 06/08/2022 5:08 AM RETINAL ANGIOGRAPHER 3 mL acetaminophen (Tylenol) tablet 1,000 mg [...] the MAR. $ Given 06/08/2022 8:07 PM RETINAL ANGIOGRAPHER 1,000 mg $ Given 06/08/2022 2:36 PM RETINAL ANGIOGRAPHER 1,000 mg $ Given 06/08/2022 9:07 AM RETINAL ANGIOGRAPHER 1,000 mg acetaminophen (Tylenol) tablet 650 mg [...] MAR., Post-op $ Given 06/05/2022 8:34 AM RETINAL ANGIOGRAPHER 650 mg $ Given 06/05/2022 4:00 AM RETINAL ANGIOGRAPHER 650 mg $ Given 06/04/2022 10:28 PM RETINAL ANGIOGRAPHER 650 mg buPROPion SR 12hr (Wellbutrin-SR) tablet 100 mg 100 mg, Oral, 2 TIMES DAILY, First dose on Sat06/04/22 at 1330, Until Discontinued, Do not crush, chew, or cut in half. $ Given 06/08/2022 8:07 PM RETINAL ANGIOGRAPHER 100 mg $ Given 06/08/2022 9:07 AM RETINAL ANGIOGRAPHER 100 mg $ Given 06/07/2022 8:20 PM RETINAL ANGIOGRAPHER 100 mg carvedilol (Coreg) tablet 6.25 mg 6.25 mg, Oral, 2 TIMES DAILY, First dose on Sat06/04/22 at 2100, Until Discontinued, Take with food $ Given 06/08/2022 8:08 PM RETINAL ANGIOGRAPHER 6.25 mg $ Given 06/08/2022 9:07 AM RETINAL ANGIOGRAPHER 6.25 mg $ Given 06/07/2022 8:20 PM RETINAL ANGIOGRAPHER 6.25 mg ceFAZolin (Ancef) 2 g in 0.9% NaCl IV 50 mL IVPB 2 g, at 100 mL/hr, Intravenous, EVERY 8 HOURS, 2 doses, First dose on Sat06/04/22 at 1930, Last dose on Sat06/05/22 at 0330, Indication for anti-infective therapy: Surgical prophylaxis, Post-op $ New Bag/Syringe 06/05/2022 4:02 AM RETINAL ANGIOGRAPHER 2 g 100 m L/hr $ New Bag/Syringe 06/04/2022 8:34 PM RETINAL ANGIOGRAPHER 2 g 100 mL /hr dextrose 10 [...] Until Discontinued $ Given 06/08/2022 9:07 AM RETINAL ANGIOGRAPHER 20 mg $ Given 06/07/2022 8:42 AM RETINAL ANGIOGRAPHER 20 mg $ Given 06/06/2022 8:20 AM RETINAL ANGIOGRAPHER 20 mg fentaNYL (PF) (Sublimaze) injection 50 [...] MAR., PACU $ Given 06/04/2022 12:20 PM RETINAL ANGIOGRAPHER 50 mcg $ Given 06/04/2022 12:00 PM RETINAL ANGIOGRAPHER 50 mcg furosemide (Lasix) tablet 10 mg 10 mg, Oral, DAILY, First dose on Sat06/05/22 at 0900, Until Discontinued $ Given 06/05/2022 8:34 AM RETINAL ANGIOGRAPHER 10 mg gabapentin (Neurontin) capsule 300 mg 300 mg, Oral, 3 TIMES DAILY, First dose on Sat06/05/22 at 0800, Until Discontinued $ Given 06/08/2022 8:08 PM RETINAL ANGIOGRAPHER 300 m g $ Given 06/08/2022 2:36 PM RETINAL ANGIOGRAPHER 300 mg $ Given 06/08/2022 9:07 AM RETINAL ANGIOGRAPHER 300 mg HYDROmorphone (Dilaudid) injection 0.5 mg [...] MAR., PACU $ Given 06/04/2022 12:40 PM RETINAL ANGIOGRAPHER 0.5 mg insulin lispro (HumaLOG;ADMelog) 100 UNIT/ML [...] physician, Post-op $ Given 06/07/2022 12:10 PM RETINAL ANGIOGRAPHER 1 Units Left Arm $ Given 06/06/2022 5:28 PM RETINAL ANGIOGRAPHER 2 Units Ri ght Arm $ Given 06/05/2022 6:00 PM RETINAL ANGIOGRAPHER 1 Units Le ft Arm iron sucrose (Venofer) injection 200 mg 200 mg, Intravenous, DAILY, 5 doses, First dose on Sat06/06/22 at 0930, Last dose on Sat06/10/22 at 0900, May administer up to 200 mg of undiluted solution IVP slowly over 5 minutes $ Given 06/08/2022 9:06 AM RETINAL ANGIOGRAPHER 200 mg $ Given 06/07/2022 8:42 AM RETINAL ANGIOGRAPHER 200 mg $ Given 06/06/2022 10:37 AM RETINAL ANGIOGRAPHER 200 mg lactated ringers infusion at 20 mL/hr, Intravenous, PRE-OP CONTINUOUS, Starting on Sat06/04/22 at 0545, Until Sat06/04/22 at 1314, Pre-op Restarted 06/04/2022 9:36 AM RETINAL ANGIOGRAPHER $ New Bag/Syringe 06/04/2022 6:42 AM RETINAL ANGIOGRAPHER 20 mL/ hr latanoprost (Xalatan) 0.005 % ophthalmic solution 1 drop 1 drop, Each Eye, AT BEDTIME, First dose on Sat06/04/22 at 2100, Until Discontinued, Allow at least 5 minutes between administration of multiple ophthalmic products Once opened, store at room temperature $ Given 06/08/2022 8:08 PM RETINAL ANGIOGRAPHER 1 drop $ Given 06/07/2022 8:22 PM RETINAL ANGIOGRAPHER 1 drop $ Given 06/06/2022 8:27 PM RETINAL ANGIOGRAPHER 1 drop lisinopril (Prinivil; Zestril) tablet 20 mg 20 mg, Oral, DAILY, First dose on Sat06/05/22 at 0900, Until Discontinued $ Given 06/08/2022 9:07 AM RETINAL ANGIOGRAPHER 20 mg $ Given 06/07/2022 8:41 AM RETINAL ANGIOGRAPHER 20 mg $ Given 06/06/2022 8:20 AM RETINAL ANGIOGRAPHER 20 mg magnesium sulfate 2 g in 50 mL bolus 2 g, at 25 mL/hr, Administer over 120 Minutes, Intravenous, ONCE, 1 dose, On Sat06/06/22 at 0745, Infuse at 1 gm/hr $ New Bag/Syringe 06/06/2022 8:17 AM RETINAL ANGIOGRAPHER 2 g 25 mL/hr magnesium sulfate 2 g in 50 mL bolus 2 g, at 25 mL/hr, Administer over 120 Minutes, Intravenous, ONCE, 1 dose, On Sat06/08/22 at 0900, Infuse at 1 gm/hr $ New Bag/Syringe 06/08/2022 9:11 AM RETINAL ANGIOGRAPHER 2 g 25 mL/hr meclizine (Antivert) tablet 25 mg 25 mg, Oral, 3 TIMES DAILY PRN, Dizziness, Starting on Sat06/07/22 at 0945, Until Sat06/08/22 at 2259 $ Given 06/08/2022 10:50 AM RETINAL ANGIOGRAPHER 25 mg $ Given 06/07/2022 1:57 PM RETINAL ANGIOGRAPHER 25 mg methocarbamol (Robaxin) tablet 750 mg 750 mg, Oral, EVERY 6 HOURS PRN, Muscle Spasms, Starting on Sat06/04/22 at 1315, Until Sat06/05/22 at 1018, Post-op $ Given 06/05/2022 5:39 AM RETINAL ANGIOGRAPHER 750 mg $ Given 06/04/2022 10:28 PM RETINAL ANGIOGRAPHER 750 mg ondansetron (Zofran) injection 4 mg 4 mg, Intravenous, EVERY 6 HOURS PRN, Nausea/Vomiting, Starting on Sat06/05/22 at 0759, Until Sat06/08/22 at 2259, Administer over 2 to 5 minutes. $ Given 06/06/2022 8:26 PM RETINAL ANGIOGRAPHER 4 mg oxyCODONE (immediate release) (Roxicodone) tablet [...] MAR., Post-op $ Given 06/05/2022 8:33 AM RETINAL ANGIOGRAPHER 10 mg oxyCODONE (immediate release) (Roxicodone) tablet [...] MAR., Post-op $ Given 06/04/2022 10:27 PM RETINAL ANGIOGRAPHER 5 mg $ Given 06/04/2022 6:08 PM RETINAL ANGIOGRAPHER 5 mg oxyCODONE (immediate release) (Roxicodone) tablet [...] MAR., Post-op $ Given 06/08/2022 10:50 AM RETINAL ANGIOGRAPHER 5 mg $ Given 06/06/2022 8:27 PM RETINAL ANGIOGRAPHER 5 mg $ Given 06/06/2022 4:57 AM RETINAL ANGIOGRAPHER 5 mg pantoprazole EC (Protonix) tablet 40 mg 40 mg, Oral, DAILY, First dose on Sat06/04/22 at 1330, Until Discontinued, Do not crush, chew, or cut in half. $ Given 06/08/2022 9:07 AM RETINAL ANGIOGRAPHER 40 mg $ Given 06/07/2022 8:41 AM RETINAL ANGIOGRAPHER 40 mg $ Given 06/06/2022 8:20 AM RETINAL ANGIOGRAPHER 40 mg polyethylene glycol 3350 (Miralax) packet 17 g 17 g, Oral, DAILY, First dose (after last modification) on Sat06/05/22 at 0900, Until Discontinued, Mix in 8 ounces of water, juice, soda, coffee or tea prior to administration, Post-op $ Given 06/06/2022 8:20 AM RETINAL ANGIOGRAPHER 17 g $ Given 06/05/2022 8:33 AM RETINAL ANGIOGRAPHER 17 g polyethylene glycol 3350 (Miralax) packet 17 g 17 g, Oral, 2 TIMES DAILY, First dose (after last modification) on Sat06/06/22 at 2100, Until Discontinued, Mix in 8 ounces of water, juice, soda, coffee or tea prior to administration, Post-op $ Given 06/06/2022 8:28 PM RETINAL ANGIOGRAPHER 17 g polyethylene glycol 3350 (Miralax) packet 17 g 17 g, Oral, DAILY PRN, Constipation, Starting on Sat06/07/22 at 0906, Until Sat06/08/22 at 2259, Mix in 8 ounces of water, juice, soda, coffee or tea prior to administration, Post-op pravastatin (Pravachol) tablet 40 mg 40 mg, Oral, AT BEDTIME, First dose on Sat06/04/22 at 2100, Until Discontinued $ Given 06/08/2022 8:07 PM RETINAL ANGIOGRAPHER 40 mg $ Given 06/07/2022 8:20 PM RETINAL ANGIOGRAPHER 40 mg $ Given 06/06/2022 8:27 PM RETINAL ANGIOGRAPHER 40 mg QUEtiapine (SEROquel) tablet 100 mg 100 mg, Oral, 2 TIMES DAILY, First dose (after last reorder) on Sat06/04/22 at 1445, Until Discontinued $ Given 06/05/2022 8:34 AM RETINAL ANGIOGRAPHER 100 mg $ Given 06/04/2022 8:34 PM RETINAL ANGIOGRAPHER 100 mg QUEtiapine (SEROquel) tablet 100 mg 100 mg, Oral, DAILY, First dose (after last modification) on Sat06/06/22 at 0900, Until Discontinued $ Given 06/07/2022 8:41 AM RETINAL ANGIOGRAPHER 100 mg $ Given 06/06/2022 8:20 AM RETINAL ANGIOGRAPHER 100 mg QUEtiapine (SEROquel) tablet 100 mg 100 mg, Oral, EVERY EVENING, First dose (after last modification) on Sat06/08/22 at 1700, Until Discontinued $ Given 06/08/2022 6:27 PM RETINAL ANGIOGRAPHER 100 mg QUEtiapine (SEROquel) tablet 50 mg 50 mg, Oral, Once, 1 dose, On Sat06/07/22 at 2000 $ Given 06/07/2022 8:22 PM RETINAL ANGIOGRAPHER 50 mg saline nasal spray ([place]; Baby [place]) 0.65 % nasal spray 2 spray 2 spray, Each Nostril, EVERY 1 HOUR PRN, Dry Nose, Starting on Sat06/06/22 at 0946, Until Sat06/08/22 at 2259 senna-docusate (Senokot-S) tablet 1 tablet 1 tablet, Oral, DAILY, First dose on Sat06/04/22 at 1330, Until Discontinued, Post-op $ Given 06/06/2022 8:20 AM RETINAL ANGIOGRAPHER 1 tablet $ Given 06/05/2022 8:34 AM RETINAL ANGIOGRAPHER 1 tablet sodium - potassium phosphates (K Phos Neutral) tablet 2 tablet 2 tablet, Oral, ONCE, 1 dose, On Sat06/07/22 at 0900, Contains Phos 8 mmol, K+ 1.1 mEq, Na 13 mEq per tablet $ Given 06/07/2022 8:41 AM RETINAL ANGIOGRAPHER 2 tablets vitamin D3 (Cholecalciferol) 10 MCG (400 UNIT) tablet 400 Units 400 Units, Oral, DAILY, First dose on Sat06/08/22 at 0900, Until Discontinued, 400 units = 10 mcg $ Given 06/08/2022 9:07 AM RETINAL ANGIOGRAPHER 400 Units vitamin D3 (Cholecalciferol) 10 MCG (400 UNIT) tablet 800 Units 800 Units, Oral, DAILY, First dose (after last modification) on Sat06/09/22 at 0900, Until Discontinued, 400 units = 10 mcg documented in this encounter Active and Recently Administered Medications Times are shown in RETINAL ANGIOGRAPHER. 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
--- OUTSIDE RECORDS SUMMARY | 2024-04-12 16:31 | XMS_ITS | Encounter Summary ---
Author Organization [facility] Address [address] [place] [address] Care Team Providers Care Construction Project Engineer Name Role Phone Karrie Phillips MD Primary Care Provider [phone] Reason for Visit * Reason Comments VOMITING BLOOD Pt arrived via [facility] vehicle. Pt states she was encouraged to come here from her clinic appointment today d/t dark red emesis. Pt states she is having increased dizziness with movement and nausea. Pt states she is chilling. * Auth/Cert (Routine) Specialty Diagnoses / Procedures Referred By Everardo fried Referred To Contact Referral ID Status Reason Start Date Expiration Date Visits Re quested Visits Authorized [id number] 1 1 Encounter Details Date Type Department Care Team (Latest Contact Info) Description 06/20/2022 1:47 PM CDT - 06/23/2022 4:53 PM CDT Hospital Encounter [facility] ACUTE [address] [place] [phone] Adolph Mckinney MD [address] [place] [address] Eduar Mathis MD [address] [phone] [place] [address] [place] [address] Internal Medicine Discharge Disposition: [place] Health Care [facility] Social History Tobacco Use Types Packs/Day Years [...] and heating? Not hard at all 06/04/2022 [facility] of Occupat ional Health - Occupational Stress [...] Hospital Discharge Summary Patient ID: Kandace Cole [id number] 72 year old 1950 Admit date: 06/20/2022 [...] Esophagus, chronic hyponatremia, MDD that presented to [facility] on 06/20 from her follow up appointment with her spine surgeon for staple removal with rapid onset of 1 day of 10-20 episodes of vomiting and noted some coffee ground emesis at home. No prior previous reported episodes. On arrival to [facility], she was slightly hypertensive, remaining [...] spine. Report dictated by Yasir Pierre MD (certified residential medication aide). Kamila Narvaez MD have personally reviewed and [...] etiology. > Dictated by Sherlyn Hopkins DO (certified residential medication aide). IChaim have personally reviewed and interpreted this [...] 0.65 % nasal spray Commonly known as: Sharkey; Baby Clarion [place] 1 (one) spray into each nostril as needed for Dry Nose vitamin D3 10 MCG (400 UNIT) tablet Commonly known as: Cholecalciferol Take 2 (two) tablets by mouth once daily Where to Get Your Medications These medications were sent to [id number] - [address] [facility] [phone] [facility] [phone] [facility] [address] ?? ondansetron (disintegrating) 4 MG tablet Follow-up Information Karrie Phillips MD . Specialty: Family Medicine Contact information: [address] [place] [address] [facility] [address] Follow up with provider . [...] any reason, you may reach us at [phone] and dial 0 for the catalytic case operator. If you have any questions about your medications, please be sure to ask the pharmacy when you brain picker your prescription. You may also call [...] reschedule the appointment. Thanks! Internal Medicine Department [place] [address] [place] [address] Signed: Anabell Hernandez PA-C 06/23/2022 Time spent [...] any reason, you may reach us at [phone] and dial [phone] for the catalytic case operator. If you have any questions about your medications, please be sure to ask the pharmacy when you brain picker your prescription. You may also call [...] reschedule the appointment. Thanks! Internal Medicine Department [address] [address] documented in this encounter Medications at Time [...] mouth every evening 06/08/2022 saline nasal spray (Sharkey; Baby Clarion) 0.65 % nasal spray [place] 1 (one) spray into each nostril as [...] Arciniega OT - 06/22/2022 3:35 PM CDT [facility] Department of Physical Medicine & Rehabilitation Progress Note Patient: Kandace Cole [facility] Record Number: [id number] Date of : 1950 Age: [age] year old Per PT, the patient is independent with ADLs and functional mobility, no skilled OT indicated. D/C OT. * Ange Whitman, PT - 06/22/2022 2:55 PM CDT [facility] Physical Medicine and Rehabilitation Physical Therapy Initial Evaluation Note Patient: Kandace Cole [facility] Record Number: [id number] Date of : 1950 Age: [age] year [...] as Tolerated Spine Precautions: Yes Spine Precautions: Bone Gap DIAGNOSIS: Patient Active Problem List: Degeneration of cervical intervertebral disc Syncope and collapse Trauma Injury of head, initial encounter Fall, initial encounter Multiple closed fractures of facial bone, initial encounter (CMS/HCC) Abdominal pain Abnormal serum creatinine level Anemia Heredia's esophagus Cardiomegaly Chronic kidney disease Chronic obstructive pulmonary disease (CMS/[facility]) Chronic depression Dyspnea on exertion Benign essential hypertension Glaucoma Hyperkalemia Hyposmolality Hyperthyroidism Hypothyroidism Intractable chronic migraine without aura Iron deficiency anemia Leukocytosis Macular degeneration Migraine Ulnar neuropathy Type 2 diabetes mellitus (CMS/[facility]) Type 2 [...] to have w/c after neck surgery. riaz.) Binding Cutter issued to pt. Pt has bed rails. [...] activity this date. Bed Mobility: Rolling: Modified Zap Supine to Sit: Modified Zap with HOB in semi-fowlers position Sit to Supine: Modified Zap Pt has bed wedge at home to elevate head. Transfers: Sit to Stand: Complete Zap Stand to Sit: Complete Zap Bed to Chair: Complete Zap Type of Transfer: Stand Pivot Transfer Transfer Device: Gait belt;Walker-2 Wheeled Gait: Weight Bearing Status: (WBAT x4 in aspen collar) Distance Ambulated: 125 FEET Ambulation: Assistive Device: Gait Belt;Walker-2 Wheeled Ambulation: Level of Assistance: Modified Zap Ambulation: Gait Deviations: (normal) Balance: Balance Scales/Tests [...] neck surgery. Equipment Issued: gait belt and track machine operator repairer Plan: Plan: Discontinue IP PT If patient [...] spine. Report dictated by Yasir Pierre MD (certified residential medication aide). Kamila Narvaez MD have personally reviewed and [...] etiology. > Dictated by Sherlyn Hopkins DO (certified residential medication aide). Chaim Narvaez have personally reviewed and interpreted [...] questions/concerns. Naif Tenorio MD Internal Medicine, PGY-1 [facility] Associated attestation - Ike Mcpherson MD - 06/22/2022 10:15 AM CDT I have personally seen and examined this patient. I agree with the household cook's findings, assessment and plan as outlined. In [...] spine. Report dictated by Yasir Pierre MD (certified residential medication aide). aKmila Narvaez MD have personally reviewed and interpreted [...] etiology. > Dictated by Sherlyn Hopkins DO (certified residential medication aide). 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 Home when medically clear. Lives with: Other (Comment) (Grandson) Physical Limitations: None Requires Assistance With: None Preferred Pharmacy: [facility] [address] [place] [address] READMISSION RISK SCORE is 20* at 4:42 PM 06/21/2022. Pt LYNNETTE in procedure, chart reviewed. Family Support (name and phone): Extended Emergency Contact Information Primary Emergency Contact: BARBARA CISNEROS Mobile Relation: Brother Secondary Emergency Contact: Barbara Cisneros Address: [place], [place] Relation: Other Patient or customer solutions representative requests care coordination reach out to family or caregiver listed above regarding discharge planning and at time of discharge? No Equipment at Home: Chair-Shower;Grab Bars;Cane-Small Base Quad;Walker-2 Wheeled;Walker-4 Wheeled with Seat Adoption Services Manager Referral: No Will continue to follow. For any questions or needs please contact: Vocational Case Manager Name/Phone number: Krystle Guerrero RN [phone] * Ori Iyer PA-C - 06/21/2022 10:19 AM CDT It is fine to remove C collar for patient's EGD. This was approved by Orthopedics (per GI). Ori Iyer PA-C * Ori Iyer PA-C - 06/21/2022 8:53 AM CDT Hospitalist Daily Progress Note Name: Kandace Cole Age: [age] year old Room: [facility]/ Date Admitted: 06/20/2022 Total duration of encounter: [...] spine. Report dictated by Yasir Pierre MD (certified residential medication aide). IKamila MD have personally reviewed and interpreted [...] etiology. > Dictated by Sherlyn Hopkins DO (certified residential medication aide). Chaim Narvaez have personally reviewed and interpreted [...] continue amlodipine 5 mg daily (started at [facility]) T2DM Hypoglycemia likely 2/2 NPO [...] Feel free to text page me through [employer] Date of service: 06/21/2022 Attending Physician: Abeba Will DO * Leobardo Chisholm RN - 06/21/2022 12:24 AM CDT RN called [facility] for infusion channel. * Leobardo Chisholm RN - 06/20/2022 11:21 PM CDT RN called [employer] for SCD pump and [facility]aris brain w/ channel. * Leobardo Chisholm RN - 06/20/2022 11:00 PM CDT [facility] and [facility] Brain to bedside. [facility] did not have channel. [facility] stated she would be [...] 72 year old, female : 1950 CSN: [id number] Primary Care Physician: Karrie Phillips MD, MD [...] results for input(s): PTT in the last 67134 hours. Cultures No results found for this or any previous visit (from the past 248 hour(s)). Physical Exam General: Awake, alert, follows commands, ill appearing Neck: - C-collar/Appling J: Present - Dressing: clean and dry [...] in this encounter H&P Notes * Deepa eGorges MD - 06/20/2022 6:16 PM CDT INTERNAL [...] closed fractures of facial bone, initial encounter ([facility]) Abdominal pain Abnormal serum creatinine level Anemia Heredia's esophagus Cardiomegaly Chronic kidney disease Chronic obstructive pulmonary disease ([facility]) Chronic depression Dyspnea on exertion Benign essential hypertension Glaucoma Hyperkalemia Hyposmolality Hyperthyroidism Hypothyroidism Intractable chronic migraine without aura Iron deficiency anemia Leukocytosis Macular degeneration Migraine Ulnar neuropathy Type 2 diabetes mellitus ([facility]) Type 2 diabetes mellitus with stage 3 chronic kidney disease, without long-term current use of insulin ([facility]) Temporomandibular joint disorder Systemic sclerosis ([facility]) Sprain of ankle Sciatica Recurrent major depression in remission ([facility]) Raynaud's disease Primary fibromyalgia syndrome Polyp of colon Perineal pain Paronychia of toe of right foot Onychomycosis of toenail Nonexudative 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 Nausea Multiple bruises Mixed hyperlipidemia Mixed collagen vascular disease ([facility]) Shortness of breath Abdominal pain, left upper [...] 06/08/22 Tammi Perez MD saline nasal spray (Sharkey; Baby Clarion) 0.65 % nasal spray [place] 1 (one) spray into each nostril as [...] spine. Report dictated by Yasir Pierre MD (certified residential medication aide). I, Kamila Barber MD have personally reviewed [...] most recent endoscopic evaluation was 12/2022 in [place]. States at that time there was continued [...] disease, without long-term current use of insulin ([facility]/HCC) Temporomandibular joint disorder Systemic sclerosis (CMS/HCC) [...] mouth every evening ??? saline nasal spray (Sharkey; Baby Clarion) 0.65 % nasal spray [place] 1 (one) spray into each nostril as [...] spine. Report dictated by Yasir Pierre MD (certified residential medication aide). Kamila Narvaez MD have personally reviewed and [...] etiology. > Dictated by Sherlyn Hopkins DO (certified residential medication aide). IChaim have personally reviewed and interpreted this examination/study. > Interpreting Provider: Chaim Martins on 06/20/2022 10:47 PM Procedures: Prior endoscopies notable for remote EGD hx of Heredia's esophagus in 2019. States most recent endoscopic evaluation was 12/2022 in [place]. States at that time there was continued [...] 162, trans % sat 10, TIBC 203, [id number], folate 9.4, B12 382. No s/s of [...] cortisol to evaluate adrenal function, no terminal makeup operator steroid use per history.TSH from 02/16/2022 wnl. [...] questions. Naif Tenorio MD Internal Medicine, PGY-1 [facility] Associated attestation - Ike Mcpherson MD - 06/21/2022 11:56 AM CDT I have personally seen and examined this patient. I agree with the household cook's findings, assessment and plan as outlined. In [...] - 06/20/2022 2:45 PM CDT Kandace Cole [id number] [facility] EMERGENCY DEPARTMENT History Chief Complaint Patient [...] mouth every evening ??? saline nasal spray (Sharkey; Baby Clarion) 0.65 % nasal spray [place] 1 (one) spray into each nostril as [...] recent spinal surgery vs volume depleted vs WI - pantoprazole 40mg given - ondansetron 4mg [...] and medical decision making; and I had [id number] time with this patient. I have conducted [...] pain. VSS. DDx: GI bleed, gastritis, gastroenteritis, WI, cardiac arrhythmia, electrolyte derangement; less concern for [...] DATE/TIME OF EXAM: 06/20/2022 3:13 PM, LOCATION [facility] INDICATION: R42: Dizziness R06.02: Shortness of breath [...] spine. Report dictated by Yasir Pierre MD (certified residential medication aide). I, Kamila Barber MD have personally reviewed and interpreted this examination/study. > Interpreting Provider: Kamila Barber MD on 06/20/2022 4:25 PM XR CHEST 2VW Final Result PROCEDURE: XR CHEST 2VW, DATE/TIME OF EXAM: 06/20/2022 3:03 PM, LOCATION [facility] INDICATION: R06.02: Shortness of breath ADDITIONAL CLINICAL [...] heads. Report dictated by Yasir Pierre MD (certified residential medication aide). I, Haroldo Ball MD have personally reviewed [...] mg (40 mg Intravenous $ Given 06/20/22 3265) Procedures None ED COURSE Patient seen and [...] and medical decision making; and I had [id number] time with this patient. I have conducted [...] mouth every evening ??? saline nasal spray (Sharkey; Baby Clarion) 0.65 % nasal spray [place] 1 (one) spray into each nostril as [...] st Contact Info) Description 06/02/2024 1:45 PM AVIATION WARFARE SYSTEMS OPERATOR Office Visit [facility] - Orthopedics [address] [place] [address], [facility] [place] [phone] Deon Taylor MD [address] [place] [id number] Scheduled Orders Name Type Priority Associated Diagnoses [...] 06/21/2022 4:40 PM CDT Coffee ground emesis SC ESOPHAGEAL CAPSULE ENDOSCOPY 06/21/2022 4:37 PM CDT Coffee ground emesis [place] ED EGD FLEX TRANSORAL DX 06/21/2022 4:37 [...] 10.5 10? 3 /uL 06/23/2022 4:17 AM [facility] RBC 2.66(L) 3.80 - 5.20 10? 6 /uL 06/23/2022 4:17 AM [facility] Hemoglobin 8.0(L) 12.0 - 15.6 g/dL 06/23/2022 4:17 AM [facility] Hematocrit 24.2(L) 35.0 - 45.0 % 06/23/2022 4:17 AM [facility] MCV 91.0 80.7 - 98.3 fL 06/23/2022 4:17 AM [facility] MCH 30.1 26.7 - 34.0 pg 06/23/2022 4:17 AM [facility] MCHC 33.1 30.8 - 35.9 g/dL 06/23/2022 4:17 AM [facility] RDW-SD 45.0 36.0 - 50.0 fL 06/23/2022 4:17 AM [facility] RDW-CV 13.7 11.2 - 14.8 % 06/23/2022 4:17 AM [facility] Platelet Count 305 150 - 400 10? 3 /uL 06/23/2022 4:17 AM [facility] MPV 9.7 9.4 - 12.9 fL 06/23/2022 4:17 AM [facility] nRBC Absolute 0.00 0 10? 3 /uL 06/23/2022 4:17 AM [facility] nRBC Auto 0.0 0 /100 WBC 06/23/2022 4:17 AM [facility] Blood BLOOD SPECIMEN / Unknown Lab Venipuncture / Unknown 06/23/2022 3:47 AM CDT 06/23/2022 4:10 AM CDT Ori Iyer PA-C LAB - HEMATOLOGY OR DERABLES Performing Organization Address [facility]/ZIP Co de Phone Number [address] [address], [facility] [phone] * MAGNESIUM BLOOD (06/23/2022 3:06 AM CDT) Magnesium 2.3 1.6 - 2.6 mg/dL 06/23/2022 4:41 AM T [facility] Blood BLOOD SPECIMEN / Unknown Lab Venipuncture / Unknown 06/23/2022 3:06 AM CDT 06/23/2022 4:03 AM CDT Anabell Hernandez PA-C LAB - CHEMISTRY ORD ERABLES Performing Organization Address City/[facility]/ZIP Co de Phone Number [address] [address], [facility] [phone] * (ABNORMAL) BASIC METABOLIC PANEL (CALCIUM TOTAL) (06/23/2022 3:06 AM CDT) BUN 10 7 - 26 mg/dL 06/23/2022 4:38 AM [facility] Creatinine 1.09(H) 0.56 - 0.96 mg/dL 06/23/2022 4:38 AM [facility] Sodium 131(L) 136 - 145 mmol/L 06/23/2022 4:38 AM [facility] Potassium 4.2 3.5 - 4.5 mmol/L 06/23/2022 4:38 AM [facility] Chloride 100 98 - 107 mmol/L 06/23/2022 4:38 AM [facility] CO2 22 22 - 29 mmol/L 06/23/2022 4:38 AM [facility] Glucose 111 70 - 115 mg/dL 06/23/2022 4:38 AM [facility] Calcium 8.2(L) 8.4 - 10.2 mg/dL 06/23/2022 4:38 AM CDT [facility] Anion Gap 13 8 - 18 06/23/2022 4:38 AM T [facility] BUN/Creatinine Ratio 9 7 - 23 06/23/2022 4:38 AM T [facility] Osmolality Calculated 272 270 - 300 mOsm/kg 06/23/2022 4:38 AM T [facility] eGFR by CKD-EPI 54(L) >=90 mL/min/1.7 3 m2 06/23/2022 4:38 AM CDT [facility] Blood BLOOD SPECIMEN / Unknown Lab Venipuncture / Unknown 06/23/2022 3:06 AM CDT 06/23/2022 4:03 AM CDT Anabell Hernandez PA-C LAB - CHEMISTRY ORD ERABLES Performing Organization Address City/[facility]/ZIP Co de Phone Number [address] [address], [facility] [phone] * GLUCOSE - POINT OF CARE (06/22/2022 4:11 PM CDT) Glucose WB/POC 105 70 - 115 mg/dL 06/22/2022 4:12 PM CDT [facility] Specimen Type Arterial 06/22/2022 4:12 PM CDT [facility] Blood BLOOD SPECIMEN / Unknown 06/22/2022 4:11 PM CDT 06/22/2022 4:12 PM CDT Abeba Will DO LAB - POINT OF CARE ORDERABLES [address] [address], [place] [phone] * (ABNORMAL) GLUCOSE - POINT OF CARE (06/22/2022 11:18 AM CDT) Glucose WB/POC 180(H) 70 - 115 mg/dL 06/22/2022 11:19 AM T [facility] Specimen Type Cap Fingerstick 2022 11:19 AM CDT [facility] Blood BLOOD SPECIMEN / Unknown 06/22/2022 11:18 AM CDT 06/22/2022 11:19 AM CDT Abeba Will DO LAB - POINT OF CARE ORDERABLES [facility] [address] [place] [address], [facility] [phone] * (ABNORMAL) CBC W/O DIFFERENTIAL (06/22/2022 2:34 AM CDT) WBC 9.1 3.5 - 10.5 10? 3 /uL 06/22/2022 3:11 AM [facility] RBC 2.70(L) 3.80 - 5.20 10? 6 /uL 06/22/2022 3:11 AM [facility] Hemoglobin 8.0(L) 12.0 - 15.6 g/dL 06/22/2022 3:11 AM [facility] Hematocrit 24.2(L) 35.0 - 45.0 % 06/22/2022 3:11 AM [facility] MCV 89.6 80.7 - 98.3 fL 06/22/2022 3:11 AM [facility] MCH 29.6 26.7 - 34.0 pg 06/22/2022 3:11 AM [facility] MCHC 33.1 30.8 - 35.9 g/dL 06/22/2022 3:11 AM [facility] RDW-SD 44.2 36.0 - 50.0 fL 06/22/2022 3:11 AM [facility] RDW-CV 13.5 11.2 - 14.8 % 06/22/2022 3:11 AM [facility] Platelet Count 358 150 - 400 10? 3 /uL 06/22/2022 3:11 AM [facility] MPV 9.2(L) 9.4 - 12.9 fL 06/22/2022 3:11 AM [facility] nRBC Absolute 0.00 0 10? 3 /uL 06/22/2022 3:11 AM [facility] nRBC Auto 0.0 0 /100 WBC 06/22/2022 3:11 AM CDT [facility] Blood BLOOD SPECIMEN / Unknown Lab Venipuncture / Unknown 06/22/2022 2:34 AM CDT 06/22/2022 3:01 AM CDT Ori Iyer PA-C LAB - HEMATOLOGY OR DERABLES Performing Organization Address City/[facility]/ZIP Co de Phone Number [address] [address], [facility] [phone] * (ABNORMAL) MAGNESIUM BLOOD (06/22/2022 2:34 AM CDT) Magnesium 1.5(L) 1.6 - 2.6 mg/dL 06/22/2022 3:29 AM T [facility] Blood BLOOD SPECIMEN / Unknown Lab Venipuncture / Unknown 06/22/2022 2:34 AM CDT 06/22/2022 3:02 AM CDT Ori Iyer PA-C LAB - CHEMISTRY ORD ERABLES Performing Organization Address City/[facility]/ZIP Co de Phone Number [address] [address], [facility] [phone] * (ABNORMAL) RENAL FUNCTION PANEL (06/22/2022 2:34 AM CDT) BUN 13 7 - 26 mg/dL 06/22/2022 3:29 AM T [facility] Creatinine 1.07(H) 0.56 - 0.96 mg/dL 06/22/2022 3:29 AM [facility] Sodium 132(L) 136 - 145 mmol/L 06/22/2022 3:29 AM T [facility] Potassium 3.8 3.5 - 4.5 mmol/L 06/22/2022 3:29 AM [facility] Chloride 99 98 - 107 mmol/L 06/22/2022 3:29 AM T [facility] CO2 25 22 - 29 mmol/L 06/22/2022 3:29 AM [facility] Glucose 126(H) 70 - 115 mg/dL 06/22/2022 3:29 AM [facility] Albumin 2.8(L) 3.4 - 5.0 g/dL 06/22/2022 3:29 AM [facility] Calcium 8.5 8.4 - 10.2 mg/dL 06/22/2022 3:29 AM [facility] Phosphorus 2.8(L) 2.9 - 5.1 mg/dL 06/22/2022 3:29 AM [facility] Anion Gap 12 8 - 18 06/22/2022 3:29 AM [facility] BUN/Creatinine Ratio 12 7 - 06/22/2022 3:29 AM [facility] Osmolality Calculated 276 270 - 300 mOsm/kg 06/22/2022 3:29 AM [facility] eGFR by CKD-EPI 55(L) >=90 mL/min/1.7 3 m2 06/22/2022 3:29 AM [facility] Blood BLOOD SPECIMEN / Unknown Lab Venipuncture / Unknown 06/22/2022 2:34 AM CDT 06/22/2022 3:02 AM CDT Ori Iyer PA-C LAB - CHEMISTRY ORD ERABLES [facility] [address] [place] [address], [facility] [phone] * CORTISOL BLOOD AM (06/22/2022 2:34 AM CDT) Cortisol AM 14.3 3.7 - 19.4 ug/dL 06/22/2022 3:49 AM T [facility] Blood BLOOD SPECIMEN / Unknown Lab Venipuncture / Unknown 06/22/2022 2:34 AM CDT 06/22/2022 3:02 AM CDT Narrative [facility] - 06/22/2022 3:49 AM CDT Normal cortisol levels are generally highest in the morning hours and lowest from late evening through the lime kiln worker helper 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 ??The PM measurements of cortisol run approximately one-half to one-third of the AM values. Ori Iyer PA-C LAB - CHEMISTRY ORD ERABLES Performing Organization Address [facility] Co de Phone Number [facility] [address] [place] [address], [place] [phone] * GLUCOSE - POINT OF CARE (06/21/2022 5:10 PM CDT) Glucose WB/POC 103 70 - 115 mg/dL 06/21/2022 5:14 PM CDT [facility] Specimen Type Cap Fingerstick 2022 5:14 PM CDT [facility] Blood BLOOD SPECIMEN / Unknown 06/21/2022 5:10 PM CDT 06/21/2022 5:14 PM CDT Abeba Will DO LAB - POINT OF CARE ORDERABLES Performing Organization Address [facility] Co de Phone Number [facility] [address] [place] [address], [place] [phone] * PATHOLOGY TISSUE (06/21/2022 4:40 PM CDT) Pathologist [facility] Case Report Surgical Pathology Report ? Case: [id number] ? Authorizing Provider: ??Carmen Morales MD ? Collected: ? 06/21/2022 04:40 PM ? Ordering Location: ? [facility] ?Received: ?06/22/2022 08:59 AM ? Pathologist: ? Hansa Gusman MD ? Specimen: ?Small Bowel, small bowel biopsy r/o celiac ? 06/25/2022 2:[address] [facility] PATHOLOGY LAB Final Diagnosis Small intestine, small bowel, biopsy (A): - No histopathologic abnormality - Intact villous and crypt architecture without increased intraepithelial lymphocytes 06/25/2022 2:[address] [facility] Microscopic Description and Comment Microscopic examination substantiates the final diagnosis. 06/25/2022 2:[address] [facility] Clinical History The patient is a 72-year-old woman presented with coffee-ground emesis who underwent upper GI endoscopy. 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 Duodenal bulb erythema, biopsied for evaluation of celiac disease. 06/25/2022 2:[address] [facility] Gross Description The requisition and specimen(s) are identified with the patient's name Kandace Cole. Received in formalin, specimen A , are 5 pink-freeman tissues, 0.3-0.9 cm in greatest dimension and 2.3 x 0.3 x 0.2 cm in aggregate, submitted in toto in cassette A1. DF 06/25/2022 2:[address] [facility] Disclaimer The performance characteristics of all immunohistochemical and indirect immunofluorescence stains (if any) cited in this report were determined by the Histopathology Laboratory of [facility]. Some of these tests were developed [...] attending (teaching) pathologist. 06/25/2022 2:27 PM CDT [facility] Embedded Images 06/25/2022 2:27 PM CDT [facility] Resection without Tumor SMALL BOWEL RESECTION SPECIMEN / Unknown 06/21/2022 4:40 PM CDT 06/22/2022 8:59 AM CDT Comment:Pre-op diagnosis: Coffee ground emesis Carmen Morales MD LAB - PATHOLOGY/CYTO LOGY ORDERABLES [facility] [address] [place] [address], [facility] [phone] * EGD (06/21/2022 4:24 PM CDT) Report [...] Procedure Code(s): ? --- Professional --- ? 28044, Esophagogastroduode noscopy, flexible, transoral; with biopsy, ? single or multiple Diagnosis Code(s): ?--- Professional --- ?K22.70, Heredia's esophagus without dysplasia ?K92.0, Hematemesis CPT copyright 2019 [employer]. All rights reserved. The codes documented in this report are preliminary and upon director of midwifery/staff midwife review may be revised to meet current compliance requirements. Carmen Morales, 06/21/2022 5:01:11 PM Note Initiated On: 06/21/2022 4:24 PM Number of Addenda: 0 ? [facility] ? [address] [place] [address] [facility] 06/21/2022 4:24 PM CDT Abeba Will DO GI PROCEDURE ORDERAB LES Performing Organization Address City/[facility]/ZIP Co de Phone Number [facility] * CARDIAC EKG ORDER (06/21/2022 3:29 PM CDT) Narrative 06/21/2022 3:29 PM CDT Ordered by an unspecified provider. Scanned Document CARDIAC SERVICES ORD ERABLES * (ABNORMAL) GLUCOSE - POINT OF CARE (06/21/2022 2:59 PM CDT) Glucose WB/POC 143(H) 70 - 115 mg/dL 06/21/2022 3:04 PM CDT [facility] Specimen Type Cap Fingerstick 2022 3:04 PM CDT [facility] Blood BLOOD SPECIMEN / Unknown 06/21/2022 2:59 PM CDT 06/21/2022 3:04 PM CDT Abeba Will DO LAB - POINT OF CARE ORDERABLES Performing Organization Address [facility]/ZIP Co de Phone Number [facility] [address] [place] [phone], [place] [phone] * (ABNORMAL) GLUCOSE - POINT OF CARE (06/21/2022 2:00 PM CDT) Glucose WB/POC 47(LL) 70 - 115 mg/dL 06/[facility]2022 2:[facility] Spec[facility] Type Cap Fingerstick 2022 2:04 PM [facility] Blood BLOOD SPECIMEN / Unknown 06/21/2022 2:00 PM CDT 06/21/2022 2:04 PM CDT Abeba Will DO LAB - POINT OF CARE ORDERABLES [facility] [address] [place] [phone], [facility] [phone] * (ABNORMAL) CBC W AUTO DIFFERENTIAL (06/21/2022 2:03 AM CDT) WBC 8.0 3.5 - 10.5 10? 3 /uL 06/21/2022 2:59 AM [facility] RBC 2.77(L) 3.80 - 5.20 10? 6 /uL 06/21/2022 2:59 AM [facility] Hemoglobin 8.3(L) 12.0 - 15.6 g/dL 06/21/2022 2:59 AM [facility] Hematocrit 25.9(L) 35.0 - 45.0 % 06/21/2022 2:59 AM [facility] MCV 93.5 80.7 - 98.3 fL 06/21/2022 2:59 AM [facility] MCH 30.0 26.7 - 34.0 pg 06/21/2022 2:59 AM [facility] MCHC 32.0 30.8 - 35.9 g/dL 06/21/2022 2:59 AM [facility] RDW-SD 46.8 36.0 - 50.0 fL 06/21/2022 2:59 AM [facility] RDW-CV 13.8 11.2 - 14.8 % 06/21/2022 2:59 AM [facility] Platelet Count 415(H) 150 - 400 10? 3 /uL 06/21/2022 2:59 AM [facility] MPV 9.6 9.4 - 12.9 fL 06/21/2022 2:59 AM [facility] nRBC Absolute 0.00 0 10? 3 /uL 06/21/2022 2:59 AM [facility] nRBC Auto 0.0 0 /100 WBC 06/21/2022 2:59 AM [facility] Neutrophils % 68.7 35.0 - 70.0 % 06/21/2022 2:59 AM [facility] Lymphocytes % 17.2(L) 20.0 - 43.0 % 06/21/2022 2:59 AM [facility] Monocytes % 10.7 5.0 - 13.0 % 06/21/2022 2:59 AM [facility] Eosinophils % 2.3 0.0 - 6.0 % 06/21/2022 2:59 AM [facility] Basophil % 0.6 0.0 - 2.0 % 06/21/2022 2:59 AM [facility] Neutrophils Absolute 5.47 1.60 - 7.00 10? 3 /uL 06/21/2022 2:59 AM [facility] Lymphocyte Absolute 1.37 1.10 - 3.90 10? 3 /uL 06/21/2022 2:59 AM [facility] Monocytes Absolute 0.85 0.26 - 1.07 10? 3 /uL 06/21/2022 2:59 AM [facility] Eosinophils Absolute 0.18 0.00 - 0.47 10? 3 /uL 06/21/2022 2:59 AM [facility] Basophils Absolute 0.05 0.00 - 0.08 10? 3 /uL 06/21/2022 2:59 AM [facility] Immature Granulocytes % 0.5 0.0 - 1.0 % 06/21/2022 2:59 AM [facility] Immature Granulocytes Absolute 0.04 06/21/2022 2:59 AM [facility] Blood BLOOD SPECIMEN / Unknown Lab Venipuncture / Unknown 06/21/2022 2:03 AM CDT 06/21/2022 2:39 AM CDT Deepa Georges MD LAB - HEMATOLOGY ORD ERABLES Performing Organization Address City/State/[facility] Co de Phone Number [address] [address], [facility] [phone] * (ABNORMAL) COMPREHENSIVE METABOLIC PANEL (06/21/2022 2:[address] [facility]) BUN 14 7 - 26 mg/dL 06/21/2022 3:05 AM [facility] Creatinine 1.11(H) 0.56 - 0.96 mg/dL 06/21/2022 3:05 AM [facility] Sodium 134(L) 136 - 145 mmol/L 06/21/2022 3:05 AM [facility] Potassium 4.2 3.5 - 4.5 mmol/L 06/21/2022 3:05 AM [facility] Chloride 96(L) 98 - 107 mmol/L 06/21/2022 3:05 AM [facility] CO2 25 22 - 29 mmol/L 06/21/2022 3:05 AM [facility] Glucose 54(L) 70 - 115 mg/dL 06/21/2022 3:05 AM [facility] Calcium 9.5 8.4 - 10.2 mg/dL 06/21/2022 3:05 AM [facility] Protein Total 6.0 6.0 - 8.3 g/dL 06/21/2022 3:05 AM [facility] Albumin 3.3(L) 3.4 - 5.0 g/dL 06/21/2022 3:05 AM [facility] Bilirubin Total 0.7 0.2 - 1.2 mg/dL 06/21/2022 3:05 AM [facility] Alkaline Phosphatase 62 40 - 150 U/L 06/21/2022 3:05 AM [facility] ALT 10 5 - 55 U/L 06/21/2022 3:05 AM [facility] AST 15 5 - 34 U/L 06/21/2022 3:05 AM [facility] Anion Gap 17 8 - 18 06/21/2022 3:05 AM [facility] BUN/Creatinine Ratio 13 7 - 23 06/21/2022 3:05 AM [facility] Osmolality Calculated 276 270 - 300 mOsm/kg 06/21/2022 3:05 AM [facility] Albumin/Globulin Ratio 1.2 1.1 - 2.3 06/21/2022 3:05 AM [facility] eGFR by CKD-EPI 53(L) >=90 mL/min/1.7 3 m2 06/21/2022 3:05 AM [facility] Blood BLOOD SPECIMEN / Unknown Lab Venipuncture / Unknown 06/21/2022 2:03 AM CDT 06/21/2022 2:39 AM T Deepa Georges MD LAB - CHEMISTRY CHELO QUIGLEY [facility] [address] [place] [phone], [facility] [phone] * (ABNORMAL) URINALYSIS REFLEX TO MICROSCOPIC NO CULTURE (06/21/2022 12:50 AM T) Color UA Yellow Straw, Yellow 06/21/2022 1:04 AM [facility] Clarity UA Clear Clear 06/21/2022 1:04 AM [facility] Specific [place] UA 1.048(H) 1.005 - 1.030 06/21/2022 1:04 AM [facility] pH UA 7.0 5.0 - 8.0 pH 06/21/2022 1:04 AM [facility] Protein UA Negative Negative 06/21/2022 1:04 AM [facility] Glucose UA Negative Negative 06/21/2022 1:04 AM [facility] Ketone UA 1+(A) Negative 06/21/2022 1:04 AM [facility] Bilirubin UA Negative Negative 06/21/2022 1:04 AM [facility] Blood UA Negative Negative 06/21/2022 1:04 AM [facility] Nitrite UA Negative Negative 06/21/2022 1:04 AM [facility] Leukocyte Esterase Trace(A) Negative 06/21/2022 1:04 AM [facility] Urobilinogen UA Negative Negative mg/dL 06/21/2022 1:04 AM [facility] RBC UA 0-2 None Seen, 0-2, 3-5 /HPF 06/21/2022 1:04 AM CDT [facility] WBC UA 0-5 None Seen, 0-5 /HPF 06/21/2022 1:04 AM CDT [facility] Squamous Epithelial Cells UA 0-2 None Seen, 0-2, 3-5 /HPF 06/21/2022 1:04 AM CDT [facility] Urine URINE SPECIMEN OBTAINED BY CLEAN CATCH PROCEDURE / Unknown Collection / Unknown 06/21/2022 12:50 AM CDT 06/21/2022 12:57 AM CDT Narrative [facility] - 06/21/2022 1:04 AM CDT Sima Kaufman PA-C LAB - URINALYSIS OR DERABLES Performing Organization Address City/[facility]/ZIP Co de Phone Number [address] [address], [place] [phone] * (ABNORMAL) HEMOGLOBIN (06/20/2022 10:18 PM CDT) Hemoglobin 8.5(L) 12.0 - 15.6 g/dL 06/20/2022 10:42 PM CDT [facility] Blood BLOOD SPECIMEN / Unknown Lab Venipuncture / Unknown 06/20/2022 10:18 PM CDT 06/20/2022 10:39 PM CDT Deepa Georges MD LAB - HEMATOLOGY ORD ERABLES Performing Organization Address City/[facility]/ZIP Co de Phone Number [address] [address], [place] [phone] * B-TYPE NATRIURETIC PEPTIDE (06/20/2022 10:18 PM CDT) BNP 99 <100 pg/mL 06/20/2022 11:17 PM CDT [facility] Comment: A decision threshold of 100 [...] CHELO QUIGLEY Performing Organization Address [facility]/State/[facility] Co de Phone Number [place] [phone] [place] [address], [place] [phone] * CT ANGIO ABDOMEN PELVIS (06/20/2022 5:05 [...] etiology. > Dictated by Sherlyn Hopkins DO (certified residential medication aide). I, Chaim Martins have personally reviewed and interpreted this examination/study. > Interpreting Provider: Chaim Martins on 06/20/2022 10:47 PM Narrative 06/20/2022 10:47 PM CDT PROCEDURE: ??CT ANGIO ABDOMEN PELVIS, DATE/TIME OF EXAM: ??06/20/2022 5:05 PM, LOCATION ??[facility] INDICATION: R10.12: Abdominal pain, left upper quadrant [...] PELVIS, DATE/TIME OF EXAM: 06/20/2022 5:05PM, LOCATION [facility] INDICATION: R10.12: Abdominal pain, left upper quadrant [...] etiology. > Dictated by Sherlyn Hopkins DO (certified residential medication aide). IChaim have personally reviewed and interpreted this [...] spine. Report dictated by Yasir Pierre MD (certified residential medication aide). Kamila Narvaez MD have personally reviewed and interpreted this examination/study. > Interpreting Provider: Kamila Barber MD on 06/20/2022 4:25 PM Narrative 06/20/2022 4:25 PM CDT PROCEDURE: ??XR CERVICAL SPINE 2 OR 3VW, DATE/TIME OF EXAM: ??06/20/2022 3:13 PM, LOCATION ??[facility] INDICATION: R42: Dizziness R06.02: Shortness of breath [...] 3VW, DATE/TIME OF EXAM: 33:13 PM, LOCATION [facility] INDICATION: R42: Dizziness R06.02: Shortness of breath [...] spine. Report dictated by Yasir Pierre MD (certified residential medication aide). Kamila Narvaez MD have personally reviewed and interpreted this examination/study. > Interpreting Provider: Kamila Barber MD on 06/20/2022 4:25 PM Adolph Mckinney MD DIAGNOSTIC IMAGING ORDERABLES * XR CHEST 2VW (06/20/2022 3:02 PM CDT) Anatomical Region Laterality Modality Chest Radiographic Vivian ging 06/20/2022 3:13 PM CDT Narrative 06/20/2022 3:49 PM CDT PROCEDURE: ??XR CHEST 2VW, DATE/TIME OF EXAM: ??06/20/2022 3:03 PM, LOCATION [facility] INDICATION: R06.02: Shortness of breath ADDITIONAL CLINICAL [...] heads. Report dictated by Yasir Pierre MD (certified residential medication aide). Haroldo Narvaez MD have personally reviewed and interpreted this examination/study. > Interpreting Provider: Haroldo Ball MD on 06/20/2022 3:49 PM Procedure Note Haroldo Ball MD - 06/20/2022 PROCEDURE: XR CHEST 2VW, DATE/TIME OF EXAM: 06/20/2022 3:03 PM, LOCATION [facility] INDICATION: R06.02: Shortness of breath ADDITIONAL CLINICAL [...] heads. Report dictated by Yasir Pierre MD (certified residential medication aide). I, Haroldo Ball MD have personally reviewed and interpreted this examination/study. > Interpreting Provider: Haroldo Ball MD on 06/20/2022 3:49 PM Adolph Mckinney MD DIAGNOSTIC IMAGING ORDERABLES * TYPE + SCREEN PANEL (06/20/2022 2:05 PM CDT) Pathologist [facility] Antibody Screen NEG 2:53 PM CDT [facility] ABO Rh A POS 06/20/2022 2:53 PM CDT [facility] Blood Bank BLOOD SPECIMEN / Unknown Venipuncture / Unknown 06/20/2022 2:05 PM CDT 06/20/2022 2:08 PM CDT Adolph Mckinney MD LAB - BLOOD BANK O RDERABLES Performing Organization Address City/[facility]/ZIP Co de Phone Number [facility] [address] [place] [phone], [facility] [phone] * LACTIC ACID BLOOD (06/20/2022 2:05 PM CDT) [facility] Lactic Acid-Stat 1.1 <=2.0 mmol/L 06/20/2022 2:48 PM CDT [facility] Blood BLOOD SPECIMEN / Unknown Venipuncture / Unknown 06/20/2022 2:05 PM CDT 06/20/2022 2:23 PM CDT Adolph Mckinney MD LAB - CHEMISTRY OR DERABLES [address] [address], [facility] [phone] * LIPASE BLOOD (06/20/2022 2:05 PM CDT) Pathologist [facility] Lipase 18 8 - 78 U/L 06/20/2022 2:50 PM CDT [facility] Blood BLOOD SPECIMEN / Unknown Venipuncture / Unknown 06/20/2022 2:05 PM CDT 06/20/2022 2:23 PM CDT Narrative [facility] - 06/20/2022 2:50 PM CDT Lipase results from the [employer] Alinity analyzer may not be comparable with other methodologies. Adolph Mckinney MD LAB - CHEMISTRY OR DERABLES Performing Organization Address [facility] Co de Phone Number [facility] [address] [place] [address], [facility] [phone] * PT-INR [facility] (06/20/2022 2:05 PM CDT) PT 13.4 12.1 - 14.8 Seconds 06/20/2022 2:48 PM CDT [facility] INR 1.0 See Comment 06/20/2022 2:48 PM CDT [facility] Comment:The suggested therap eutic range for standard coumadin (warfarin) therapy is an INR of 2.0-3.0. For high-risk patients (Mechanical Mitral Valve Prosthesis, etc.), the suggested prophylactic therapeutic range is an INR of 2.5-3.5. Blood BLOOD SPECIMEN / Unknown Venipuncture / Unknown 06/20/2022 2:05 PM CDT 06/20/2022 2:07 PM CDT Adolph Mckinney MD LAB - COAGULATION ORDERABLES Performing Organization Address City/[facility] Co de Phone Number [facility] [address] [place] [address], [facility] [phone] * (ABNORMAL) CBC W/O DIFFERENTIAL (06/20/2022 2:05 PM CDT) WBC 9.5 3.5 - 10.5 10? 3 /uL 06/20/2022 2:27 PM CDT [facility] RBC 3.07(L) 3.80 - 5.20 10? 6 /uL 06/20/2022 2:27 PM CDT [facility] Hemoglobin 9.3(L) 12.0 - 15.6 g/dL 06/20/2022 2:27 PM [facility] Hematocrit 27.6(L) 35.0 - 45.0 % 06/20/2022 2:27 PM [facility] MCV 89.9 80.7 - 98.3 fL 06/20/2022 2:27 PM [facility] MCH 30.3 26.7 - 34.0 pg 06/20/2022 2:27 PM [facility] MCHC 33.7 30.8 - 35.9 g/dL 06/20/2022 2:27 PM [facility] RDW-SD 45.2 36.0 - 50.0 fL 06/20/2022 2:27 PM [facility] RDW-CV 14.0 11.2 - 14.8 % 06/20/2022 2:27 PM [facility] Platelet Count 463(H) 150 - 400 10? 3 /uL 06/20/2022 2:27 PM [facility] MPV 9.2(L) 9.4 - 12.9 fL 06/20/2022 2:27 PM [facility] nRBC Absolute 0.00 0 10? 3 /uL 06/20/2022 2:27 PM [facility] nRBC Auto 0.0 0 /100 WBC 06/20/2022 2:27 PM [facility] Blood BLOOD SPECIMEN / Unknown Venipuncture / Unknown 06/20/2022 2:05 PM CDT 06/20/2022 2:22 PM CDT Adolph Mckinney MD LAB - HEMATOLOGY O RDERABLES [facility] [address] [place] [address], [facility] [phone] * TROPONIN-I HIGH SENSITIVE REFLEX 1HOUR (06/20/2022 1:05 PM CDT) Troponin I High Sensitive 8 <=14 ng/L 06/20/2022 1:59 PM T [facility] Delta Troponin I HS 06/20/2022 1:59 PM T [facility] Comment:Delta value intentio anil not calculated. Baseline to 1 hour specimen collection interval exceeded. Blood BLOOD SPECIMEN / Unknown Venipuncture / Unknown 06/20/2022 1:05 PM CDT 06/20/2022 1:23 PM CDT Sima Kaufman PA-C LAB - CHEMISTRY ORD ERABLES Performing Organization Address City/[facility]/ZIP Co de Phone Number [address] [address], [facility] [phone] * TROPONIN-I HIGH SENSITIVE BASELINE + 1HR (06/20/2022 9:49 AM CDT) Pathologist [facility] Troponin I High Sensitive 7 <=14 ng/L 06/20/2022 10:39 AM CDT [facility] Blood BLOOD SPECIMEN / Unknown Venipuncture / Unknown 06/20/2022 9:49 AM CDT 06/20/2022 9:55 AM CDT Sima Kaufman PA-C LAB - CHEMISTRY ORD ERABLES Performing Organization Address [facility]/ZIP Co de Phone Number [address] [address], [facility] [phone] * (ABNORMAL) COMPREHENSIVE METABOLIC PANEL (06/20/2022 9:49 AM CDT) Pathologist [facility] BUN 14 7 - 26 mg/dL 06/20/2022 10:32 AM T [facility] Creatinine 1.02(H) 0.56 - 0.96 mg/dL 06/20/2022 10:32 AM [facility] Sodium 128(L) 136 - 145 mmol/L 06/20/2022 10:32 AM T [facility] Potassium 4.3 3.5 - 4.5 mmol/L 06/20/2022 10:32 AM [facility] Chloride 93(L) 98 - 107 mmol/L 06/20/2022 10:32 AM [facility] CO2 26 22 - 29 mmol/L 06/20/2022 10:32 AM T [facility] Glucose 91 70 - 115 mg/dL 06/20/2022 10:32 AM [facility] Calcium 9.8 8.4 - 10.2 mg/dL 06/20/2022 10:32 AM [facility] Protein Total 6.5 6.0 - 8.3 g/dL 06/20/2022 10:32 AM [facility] Albumin 3.5 3.4 - 5.0 g/dL 06/20/2022 10:32 AM [facility] Bilirubin Total 0.6 0.2 - 1.2 mg/dL 06/20/2022 10:32 AM [facility] Alkaline Phosphatase 66 40 - 150 U/L 06/20/2022 10:32 AM [facility] ALT 10 5 - 55 U/L 06/20/2022 10:32 AM [facility] AST 16 5 - 34 U/L 06/20/2022 10:32 AM [facility] Anion Gap 13 8 - 18 06/20/2022 10:32 AM [facility] BUN/Creatinine Ratio 14 7 - 23 06/20/2022 10:32 AM [facility] Osmolality Calculated 266(L) 270 - 300 mOsm/kg 06/20/2022 10:32 AM [facility] Albumin/Globulin Ratio 1.2 1.1 - 2.3 06/20/2022 10:32 AM [facility] eGFR by CKD-EPI 58(L) >=90 mL/min/1.7 3 m2 06/20/2022 10:32 AM [facility] Blood BLOOD SPECIMEN / Unknown Venipuncture / Unknown 06/20/2022 9:49 AM CDT 06/20/2022 9:55 AM CDT Sima Kaufman PA-C LAB - CHEMISTRY ORD ERABLES [facility] [address] [place] [address], [facility] [phone] * (ABNORMAL) CBC W AUTO DIFFERENTIAL (06/20/2022 9:49 AM CDT) WBC 11.8(H) 3.5 - 10.5 10? 3 /uL 06/20/2022 9:58 AM [facility] RBC 3.02(L) 3.80 - 5.20 10? 6 /uL 06/20/2022 9:58 AM [facility] Hemoglobin 9.0(L) 12.0 - 15.6 g/dL 06/20/2022 9:58 AM [facility] Hematocrit 27.7(L) 35.0 - 45.0 % 06/20/2022 9:58 AM [facility] MCV 91.7 80.7 - 98.3 fL 06/20/2022 9:58 AM [facility] MCH 29.8 26.7 - 34.0 pg 06/20/2022 9:58 AM [facility] MCHC 32.5 30.8 - 35.9 g/dL 06/20/2022 9:58 AM [facility] RDW-SD 45.6 36.0 - 50.0 fL 06/20/2022 9:58 AM [facility] RDW-CV 13.8 11.2 - 14.8 % 06/20/2022 9:58 AM [facility] Platelet Count 449(H) 150 - 400 10? 3 /uL 06/20/2022 9:58 AM [facility] MPV 9.0(L) 9.4 - 12.9 fL 06/20/2022 9:58 AM [facility] nRBC Absolute 0.00 0 10? 3 /uL 06/20/2022 9:58 AM [facility] nRBC Auto 0.0 0 /100 WBC 06/20/2022 9:58 AM [facility] Neutrophils % 84.6(H) 35.0 - 70.0 % 06/20/2022 9:58 AM [facility] Lymphocytes % 6.7(L) 20.0 - 43.0 % 06/20/2022 9:58 AM [facility] Monocytes % 6.6 5.0 - 13.0 % 06/20/2022 9:58 AM [facility] Eosinophils % 1.1 0.0 - 6.0 % 06/20/2022 9:58 AM CDT [facility] Basophil % 0.6 0.0 - 2.0 % 06/20/2022 9:58 AM CDT [facility] Neutrophils Absolute 9.94(H) 1.60 - 7.00 10? 3 /uL 06/20/2022 9:58 AM CDT [facility] Lymphocyte Absolute 0.79(L) 1.10 - 3.90 10? 3 /uL 06/20/2022 9:58 AM T [facility] Monocytes Absolute 0.77 0.26 - 1.07 10? 3 /uL 06/20/2022 9:58 AM [facility] Eosinophils Absolute 0.13 0.00 - 0.47 10? 3 /uL 06/20/2022 9:58 AM CDT [facility] Basophils Absolute 0.07 0.00 - 0.08 10? 3 /uL 06/20/2022 9:58 AM CDT [facility] Immature Granulocytes % 0.4 0.0 - 1.0 % 06/20/2022 9:58 AM CDT [facility] Immature Granulocytes Absolute 0.05 06/20/2022 9:58 AM [facility] Blood BLOOD SPECIMEN / Unknown Venipuncture / Unknown 06/20/2022 9:49 AM CDT 06/20/2022 9:54 AM CDT Sima Kaufman PA-C LAB - HEMATOLOGY OR DERABLES Performing Organization Address [facility] Co de Phone Number [facility] [address] [place] [address], [facility] [phone] * EKG 12-LEAD (06/20/2022 9:40 AM CDT) Ventricular Rate 88 BPM [facility] MUSE Atrial Rate 88 BPM [facility] MUSE P-R Interval 176 ms [facility] MUSE QRS Duration ms 70 ms [facility] MUSE Q-T Interval ms 348 ms [facility] MUSE QTC Calculation (Bezet) 421 ms [facility] MUSE Calculated P [place] 75 degrees [facility] MUSE Calculated R [place] 55 degrees [facility] MUSE Calculated T [place] 74 degrees [facility] MUSE Interpretation EKG NORMAL SINUS RHYTHM NORMAL ECG WHEN COMPARED WITH ECG OF 15-FEB-2022 00:55, VENT. RATE HAS INCREASED by 15 bpm Confirmed by MARIN KEARNS MD ([id number]) on 06/20/2022 1:46:36 PM [facility] MUSE 06/20/2022 9:40 AM CDT 06/20/2022 1:46 PM CDT Sima Kaufman PA-C ECG ORDERABLES [facility] SEBASTIAN documented in this encounter Visit [...] New Bag/Syringe - Provider: Mark Anthony Magana, ASNTI) PRN Medication Order 06/21/2022 06/22/2022 06/23/2022 0.9% [...] ($ Given - Provider: Mark Anthony Magana RN)[id number] ($ Given - Provider: Damian Arevalo RN) [...] swallow. documented in this encounter Care Teams Construction Project Engineer Relationship Specialty Start Date End Date Karrie Phillips MD [address] [place] [address] PCP - General 03/13/22 documented as of this encounter
--- OUTSIDE RECORDS SUMMARY | 2024-04-12 16:31 | XMS_ITS | Encounter Summary ---
Author Organization [facility] Address [address] [place] [address] Care Team Providers Care Slot Floorperson Name Role Phone Karrie Phillips MD Primary Care Provider [phone] Reason for Visit * Auth/Cert (Routine) Specialty Diagnoses / Procedures Referred By Everardo fried Referred To Contact Referral ID Status Reason Start Date Expiration Date Visits Re quested Visits Authorized [id number] 1 1 Encounter Details Date Type Department Care Team (Late st Contact Info) Description 06/21/2022 4:26 PM CDT Anesthesia Event [facility] [address] [place] [address] Dallas Francisco MD [address] [facility] [address] [place] [address] Price Michel DO [address] [place] [address] Anesthesia Record Procedure Summary Procedure Name Responsible [...] at all 06/04/2022 [facility] [place] of Occupat ional Health - Occupational Stress [...] procedural Anesthetic Plan was discussed with the PHLEBOTOMIST. BMI, Height, Weight Tobacco History Estimated body [...] of facial bone, initial encounter ([facility]) 02/15/2022 Priority: Not Prioritized ??? Nausea 01/10/2022 [...] 12/07/2021 Priority: Not Prioritized ??? Systemic sclerosis ([facility]) 12/07/2021 Priority: Not Prioritized ??? Sprain of ankle 12/07/2021 Priority: Not Prioritized ??? Sciatica 12/07/2021 Priority: Not Prioritized ??? Recurrent major depression in remission ([facility]) 12/07/2021 Priority: Not Prioritized ??? Polyp of colon 12/07/2021 Priority: Not Prioritized ??? Perineal pain 12/07/2021 Priority: Not Prioritized ??? Nonexudative age-related macular degeneration 12/07/2021 Priority: Not Prioritized ??? 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 Multiple bruises 12/07/2021 Priority: Not Prioritized ??? Mixed collagen vascular disease ([facility]) 12/07/2021 Priority: Not Prioritized ??? Paronychia of toe of right foot 07/25/2021 Priority: Not Prioritized ??? Onychomycosis of toenail 07/17/2021 Priority: Not Prioritized ??? Chronic kidney disease 03/30/2019 Priority: Not Prioritized ??? Chronic obstructive pulmonary disease ([facility]) 03/30/2019 Priority: Not Prioritized ??? Hyposmolality 03/30/2019 Priority: Not Prioritized ??? Ulnar neuropathy 03/30/2019 Priority: Not Prioritized ??? Raynaud's disease 03/30/2019 Priority: Not Prioritized ??? Dyspnea on exertion 02/23/2019 Priority: Not Prioritized ??? Type 2 diabetes mellitus ([facility]) 02/23/2019 Priority: Not Prioritized ??? Type 2 diabetes mellitus with stage 3 chronic kidney disease, without long- term current use of insulin ([facility]) 02/23/2019 Priority: Not Prioritized ??? Mixed hyperlipidemia 02/23/2019 Priority: Not Prioritized ??? Degeneration of cervical intervertebral disc 12/09/2009 Medical History: Past Medical History: Diagnosis Date ??? Anemia ??? Ferrell's esophagus ??? CKD (chronic kidney disease), stage III ([facility]) ??? Diabetes ??? Disease of esophagus ??? [...] Repair Bilateral ??? ULNAR NERVE TRANSPOSITION Left APPLICATION DESIGN ENGINEER Status: No LMP recorded (lmp unknown). Patient has had a hysterectomy. Hysterectomy OB History No obstetric history on file. Covid Vaccine: Lab Results: Recent Labs Base Name 06/08/22 0747 [id number] SPECIMENTYPE Arterial Recent Labs Component Name [...] Anesthesia Transfer of Care - Denita Taylor APRN-[facility] - 06/21/2022 4:59 PM CDT ANESTHESIA [...] st Contact Info) Description 06/02/2024 1:45 PM INTERNAL COMBUSTION ENGINE INSPECTOR Office Visit [facility] - Orthopedics [address] [place] [address], [facility] [place] [address] Deon Taylor MD [address] [place] [address] documented as of this encounter Visit [...] mg documented in this encounter Care Teams Slot Floorperson Relationship Specialty Start Date End Date Karrie Phillips MD [address] [place] [address] PCP - General 03/13/22 documented as of this encounter
--- OUTSIDE RECORDS SUMMARY | 2024-04-12 16:31 | XMS_ITS | Encounter Summary ---
Author Organization [facility] Address [address] [facility] [place] [address] Care Team Providers Care Freight Rate Clerk Name Role Phone Karrie Phillips MD Primary Care Provider [phone] Encounter Details Date Type Department Care Team [...] heating? Not hard at all 06/04/2022 [facility] [place] of Occupat ional Health - Occupational Stress [...] to sleep or slept in a senior living (including now)? 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
--- OUTSIDE RECORDS SUMMARY | 2024-04-12 16:31 | XMS_ITS | Encounter Summary ---
Author Organization [facility] Address [address] [address] Care Team Providers Care Mathematical Sciences Professor Name Role Phone Karrie Phillips MD Primary Care Provider [phone] Encounter Details Date Type Department Care Team (Late st Contact Info) Description 07/18/2022 10:46 AM CDT - 07/18/2022 11:00 AM CDT Hospital Encounter [facility] [address] [facility] [place] [id number] Lyla Blackwell, PARTY PLAN SALES HOST/HOSTESS-ICT DEVELOPER [address] [facility] [place] [address] Discharge Disposition: Home or Self Care Social [...] and heating? Not hard at all 06/04/2022 [facility] [place] of Occupat ional Health - Occupational Stress [...] mouth every evening 06/08/2022 saline nasal spray ([place]; [employer] [place]) 0.65 % nasal spray [place] 1 (one) spray into each nostril as needed for Dry Nose 15 mL 02/19/2022 vitamin D3 (Cholecalciferol) 10 MCG (400 UNIT) tablet Take 2 (two) tablets by mouth once daily 06/09/2022 documented as of this encounter Plan of Treatment Upcoming Encounters Date Type Department Care Team (Late st Contact Info) Description 06/02/2024 1:45 PM CHASSIS MECHANIC Office Visit [facility] - Orthopedics [facility] [place] [address] Deon Taylor MD [address] [place] [address] documented as of this encounter Procedures Procedure [...] MD on 07/18/2022 11:31 AM Lyla Blackwell PARTY PLAN SALES HOST/HOSTESS-ICT DEVELOPER DIAGNOSTIC IMAG ING ORDERABLES documented in this encounter Visit Diagnoses Not on filedocumented in this encounter Care Teams Mathematical Sciences Professor Relationship Specialty Start Date End Date Karrie Phillips MD [address] [place] [address] PCP - General 03/13/22 documented as of this encounter
--- OUTSIDE RECORDS SUMMARY | 2024-04-12 16:31 | XMS_ITS | Encounter Summary ---
Author Organization [facility] Address [address] [place] [place] [address] Care Team Providers Care Core Blower Operator Name Role Phone Karrie Phillips MD Primary Care Provider [phone] Reason for Visit * Reason Comments VOMITING BLOOD Pt arrived via [employer] vehicle. Pt states she was encouraged to come here from her clinic appointment today d/t dark red emesis. Pt states she is having increased dizziness with movement and nausea. Pt states she is chilling. * Auth/Cert (Routine) Specialty Diagnoses / Procedures Referred By Everardo fried Referred To Contact Referral ID Status Reason Start Date Expiration Date Visits Re quested Visits Authorized [id number] 1 1 Encounter Details Date Type Department Care Team (Late st Contact Info) Description 06/21/2022 4:40 PM CDT - 06/21/2022 5:28 PM CDT Surgery [facility] ENDOSCOPY [address] [place] [address] Carmen Morales MD [address] [place] [address] ESOPHAGOGASTRODUODENOSCOPY (EGD) DIAGNOSTIC Surgery Details Date/Time Status Location OR Service Patient Class Case Class Case Type Trauma Case? 06/21/2022 4:40 PM Posted [facility] Endoscopy ENDO 4 Gastroenterology Inpatient Urgent < [...] heating? Not hard at all 06/04/2022 [facility] - [...] Hospital Discharge Summary Patient ID: Kandace Cole [id number] 72 year old 1950 Admit date: 06/20/2022 [...] Esophagus, chronic hyponatremia, MDD that presented to [facility] on 06/20 from her follow up appointment with her spine surgeon for staple removal with rapid onset of 1 day of 10-20 episodes of vomiting and noted some coffee ground emesis at home. No prior previous reported episodes. On arrival to [facility], she was slightly hypertensive, remaining VSS. [...] spine. Report dictated by Yasir Pierre MD (residential sales manager). Kamila Narvaez MD have personally reviewed and [...] > Dictated by Sherlyn Hopkins DO (residential sales manager). Chaim Narvaez have personally reviewed and interpreted [...] 0.65 % nasal spray Commonly known as: Holmes; Baby Marianna Pleasanton 1 (one) spray into each nostril as needed for Dry Nose vitamin D3 10 MCG (400 UNIT) tablet Commonly known as: Cholecalciferol Take 2 (two) tablets by mouth once daily Where to Get Your Medications These medications were sent to [facility][id number] - [address] [address] [address] [facility] [address] ?? ondansetron (disintegrating) 4 MG tablet Follow-up Information Karrie Phillips MD . Specialty: Family Medicine Contact information: Bhavani [facility] [place] [phone] Follow up with provider . Discharge Instructions Kanadce Cole, HOSPITAL COURSE: You were admitted for [...] care provider. If you need to call [facility] for any reason, you may reach us at [phone] and dial [phone] for the twine reeling machine operator. If you have any questions about your medications, please be sure to ask the pharmacy when you pickling solution maker your prescription. You may also call your [...] the nearest emergency room or call EMS (861). It is essential that you keep all of your follow-up appointments and go to your doctors appointments as scheduled. If a follow-up with your primary care provider has not been scheduled, you need to schedule an appointment tofollow-up on your hospitalization. If there is a conflict, please call the clinic ahead of time and reschedule the appointment. Thanks! Internal Medicine Department [facility] [address] [place] [address] Signed: Anabell Hernandez PA-C 06/23/2022 Time spent [...] care provider. If you need to call [facility] for any reason, you may reach us at [phone] and dial 0 for the twine reeling machine operator. If you have any questions about your medications, please be sure to ask the pharmacy when you pickling solution maker your prescription. You may also call your [...] reschedule the appointment. Thanks! Internal Medicine Department [address] [address] documented in this encounter Medications at Time [...] mouth every evening 06/08/2022 saline nasal spray (Holmes; Baby Marianna) 0.65 % nasal spray Pleasanton 1 (one) spray into each nostril as [...] Arciniega, OT - 06/22/2022 3:35 PM CDT [facility] Department of Physical Medicine & Rehabilitation Progress Note Patient: Kandace Cole [facility] Record Number: [id number] Date of : 1950 Age: [age] year old Per PT, the patient is independent with ADLs and functional mobility, no skilled OT indicated. D/C OT. * Ange Whitman, PT - 06/22/2022 2:55 PM CDT [facility] Physical Medicine and Rehabilitation Physical Therapy Initial Evaluation Note Patient: Kandace Cole [facility] Record Number: [id number] Date of : 1950 Age: [age] year [...] as Tolerated Spine Precautions: Yes Spine Precautions: Clifford DIAGNOSIS: Patient Active Problem List: Degeneration of [...] disease, without long-term current use of insulin ([facility]/HCC) Temporomandibular joint disorder Systemic sclerosis (CMS/HCC) Sprain [...] to have w/c after neck surgery. riaz.) Pharmacist In Charge issued to pt. Pt has bed rails. [...] activity this date. Bed Mobility: Rolling: Modified Meagher Supine to Sit: Modified Meagher with HOB in semi-fowlers position Sit to Supine: Modified Meagher Pt has bed wedge at home to elevate head. Transfers: Sit to Stand: Complete Meagher Stand to Sit: Complete Meagher Bed to Chair: Complete Meagher Type of Transfer: Stand Pivot Transfer Transfer Device: Gait belt;Walker-2 Wheeled Gait: Weight Bearing Status: (WBAT x4 in aspen collar) Distance Ambulated: 125 FEET Ambulation: Assistive Device: Gait Belt;Walker-2 Wheeled Ambulation: Level of Assistance: Modified Meagher Ambulation: Gait Deviations: (normal) Balance: Balance Scales/Tests [...] neck surgery. Equipment Issued: gait belt and curb supervisor Plan: Plan: Discontinue IP PT If patient [...] spine. Report dictated by Yasir Pierre MD (residential sales manager). Kamila Narvaez MD have personally reviewed and [...] > Dictated by Sherlyn Hopkins DO (residential sales manager). Chaim Narvaezs have personally reviewed and interpreted [...] questions/concerns. Naif Tenorio MD Internal Medicine, PGY-1 [facility] Associated attestation - Ike Mcpherson MD - 06/22/2022 10:15 AM CDT I have personally seen and examined this patient. I agree with the boiler house mechanic's findings, assessment and plan as outlined. In [...] spine. Report dictated by Yasir Pierre MD (residential sales manager). Kamila Narvaez MD have personally reviewed and [...] > Dictated by Sherlyn Hopkins DO (residential sales manager). Chaim Narvaez have personally reviewed and interpreted [...] -Code: full -Dispo: inpatient Anabell Hernandez PA-C [facility] Medicine [facility] # [id number] Non-urgent messages may be sent through [employer] Date of service: 06/22/2022 Attending Physician: Abeba Will DO * Yeni Burnett RN - 06/22/2022 6:58 AM CDT Small bowel video capsule recording equipment obtained from bedside. Image uploading in progress. 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 Home when medically clear. Lives with: Other (Comment) (Grandson) Physical Limitations: None Requires Assistance With: None Preferred Pharmacy: [facility] - [address] [facility] [address] [address] [facility] [address] READMISSION RISK SCORE is 20* at 4:42 PM 06/21/2022. Pt LYNNETTE in procedure, chart reviewed. Family Support (name and phone): Extended Emergency Contact Information Primary Emergency Contact: BARBARA CISNEROS Mobile Relation: Brother Secondary Emergency Contact: Barbara Cisneros Address: [place], [place] Relation: Other Patient or in home sales representative requests care coordination reach out to family or caregiver listed above regarding discharge planning and at time of discharge? No Equipment at Home: Chair-Shower;Grab Bars;Cane-Small Base Quad;Walker-2 Wheeled;Walker-4 Wheeled with Seat Sequins Stringer Referral: No Will continue to follow. For any questions or needs please contact: Head Kiln Operator Name/Phone number: Krystle Guerrero RN [phone] * Ori Iyer PA-C - 06/21/2022 10:19 [...] spine. Report dictated by Yasir Pierre MD (residential sales manager). Kamila Narvaez MD have personally reviewed and [...] > Dictated by Sherlyn Hopkins DO (residential sales manager). IChaim have personally reviewed and interpreted this [...] continue amlodipine 5 mg daily (started at [facility]) T2DM Hypoglycemia likely 2/2 NPO vs recent malnutrition - A1C 5.3, BG not elevated, no need for insulin - hypoglycemic protocol in place Cervical myelopathy s/p C5-C6 laminectomies, C4-T2 Posterior spinal instrumentation and fusion by Dr. Tayolr on - ortho c/s, appreciate recs - [...] Feel free to text page me through [email or web address] Date of service: 06/21/2022 Attending Physician: Abeba Will DO * Leobardo Chisholm RN - 06/21/2022 12:24 AM CDT RN called [employer] for infusion channel. * Leobardo Chisholm RN - 06/20/2022 11:21 PM CDT RN called [employer] for SCD pump and Alaris brain w/ channel. * Leobardo Chisholm RN - 06/20/2022 11:00 PM CDT [facility] staff brought SCD pump and [facility]aris Brain to bedside. [facility] did not have channel. [facility] stated she would be [facility] [...] 72 year old, female : 1950 CSN: [id number] Primary Care Physician: Karrie Phillips MD, MD [...] results for input(s): PTT in the last 99630 hours. Cultures No results found for this or any previous visit (from the past 248 hour(s)). Physical Exam General: Awake, alert, follows commands, ill appearing Neck: - C-collar/Creek J: Present - Dressing: clean and dry [...] closed fractures of facial bone, initial encounter ([facility]) Abdominal pain Abnormal serum creatinine level Anemia Heredia's esophagus Cardiomegaly Chronic kidney disease Chronic obstructive pulmonary disease ([facility]) Chronic depression Dyspnea on exertion Benign essential hypertension Glaucoma Hyperkalemia Hyposmolality Hyperthyroidism Hypothyroidism Intractable chronic migraine without aura Iron deficiency anemia Leukocytosis Macular degeneration Migraine Ulnar neuropathy Type 2 diabetes mellitus ([facility]) Type 2 diabetes mellitus with stage 3 chronic kidney disease, without long-term current use of insulin ([facility]) Temporomandibular joint disorder Systemic sclerosis ([facility]) Sprain of ankle Sciatica Recurrent major depression in remission ([facility]) Raynaud's disease Primary fibromyalgia syndrome Polyp of colon Perineal pain Paronychia of toe of right foot Onychomycosis of toenail Nonexudative 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 Nausea Multiple bruises Mixed hyperlipidemia Mixed collagen vascular disease ([facility]) Shortness of breath Abdominal pain, left upper [...] 06/08/22 Tammi Perez MD saline nasal spray (Holmes; Baby Marianna) 0.65 % nasal spray Pleasanton 1 (one) spray into each nostril as [...] spine. Report dictated by Yasir Pierre MD (residential sales manager). I, Kamila Barber MD have personally reviewed [...] Phosphorous 3.0-4.0 mmol/l Disposition: Inpatient care Deepa Goerges MD 06/20/2022 6:16 PM documented in this [...] most recent endoscopic evaluation was 12/2022 in [place]. States at that time there was continued [...] mouth every evening ??? saline nasal spray (Holmes; Baby Marianna) 0.65 % nasal spray Pleasanton 1 (one) spray into each nostril as [...] spine. Report dictated by Yasir Pierre MD (residential sales manager). Kamila Narvaez MD have personally reviewed and [...] > Dictated by Sherlyn Hopkins DO (residential sales manager). IChaim have personally reviewed and interpreted this examination/study. > Interpreting Provider: Chaim Martins on 06/20/2022 10:47 PM Procedures: Prior endoscopies notable for remote EGD hx of Heredia's esophagus in 2019. States most recent endoscopic evaluation was 12/2022 in [place]. States at that time there was continued [...] 162, trans % sat 10, TIBC 203, , folate 9.4, B12 382. No s/s of [...] AM cortisol to evaluate adrenal function, no care home steroid use per history.TSH from 02/16/2022 wnl. [...] questions. Naif Tenorio MD Internal Medicine, PGY-1 [facility] Associated attestation - Ike Mcpherson MD - 06/21/2022 11:56 AM CDT I have personally seen and examined this patient. I agree with the boiler house mechanic's findings, assessment and plan as outlined. In [...] - 06/20/2022 2:45 PM CDT Kandace Cole [id number] [facility] EMERGENCY DEPARTMENT History Chief Complaint Patient presents [...] mouth every evening ??? saline nasal spray (Holmes; Baby Marianna) 0.65 % nasal spray Pleasanton 1 (one) spray into each nostril as [...] recent spinal surgery vs volume depleted vs PR - pantoprazole 40mg given - ondansetron 4mg [...] and medical decision making; and I had dbee-cb-cupt time with this patient. I have conducted [...] pain. VSS. DDx: GI bleed, gastritis, gastroenteritis, PR, cardiac arrhythmia, electrolyte derangement; less concern for [...] DATE/TIME OF EXAM: 06/20/2022 3:13 PM, LOCATION [facility] INDICATION: R42: Dizziness R06.02: Shortness of breath [...] spine. Report dictated by Yasir Pierre MD (residential sales manager). I, Kamila Barber MD have personally reviewed and interpreted this examination/study. > Interpreting Provider: Kamila Barber MD on 06/20/2022 4:25 PM XR CHEST 2VW Final Result PROCEDURE: XR CHEST 2VW, DATE/TIME OF EXAM: 06/20/2022 3:03 PM, LOCATION [facility] INDICATION: R06.02: Shortness of breath [...] Report dictated by Yasir Pierre MD (residential sales manager). I, Haroldo Ball MD have personally reviewed [...] mg (40 mg Intravenous $ Given 06/20/22 2589) Procedures None ED COURSE Patient seen and [...] and medical decision making; and I had spgz-sm-kxwr time with this patient. I have conducted [...] mouth every evening ??? saline nasal spray (Holmes; Baby Marianna) 0.65 % nasal spray Pleasanton 1 (one) spray into each nostril as [...] will be transferred to ER provider. SIMA KUAFMAN PA-C * Jaycee Rodgers RN - 06/20/2022 [...] st Contact Info) Description 06/02/2024 1:45 PM PACU RN Office Visit [facility] - Orthopedics [address] [place] [address], [facility] [place] [address] Deon Taylor MD [address] [place] [id number] Scheduled Orders Name Type Priority Associated Diagnoses [...] 06/21/2022 4:40 PM CDT Coffee ground emesis RI ESOPHAGEAL CAPSULE ENDOSCOPY 06/21/2022 4:37 PM CDT Coffee ground emesis [place] ED EGD FLEX TRANSORAL DX 06/21/2022 4:37 [...] CBC W/O DIFFERENTIAL (06/23/2022 3:47 AM CDT) [facility] WBC 7.7 3.5 - 10.5 10? 3 /uL 06/23/2022 4:17 AM [facility] RBC 2.66(L) 3.80 - 5.20 10? 6 /uL 06/23/2022 4:17 AM [facility] Hemoglobin 8.0(L) 12.0 - 15.6 g/dL 06/23/2022 4:17 AM [facility] Hematocrit 24.2(L) 35.0 - 45.0 % 06/23/2022 4:17 AM [facility] MCV 91.0 80.7 - 98.3 fL 06/23/2022 4:17 AM [facility] MCH 30.1 26.7 - 34.0 pg 06/23/2022 4:17 AM [facility] MCHC 33.1 30.8 - 35.9 g/dL 06/23/2022 4:17 AM [facility] RDW-SD 45.0 36.0 - 50.0 fL 06/23/2022 4:17 AM [facility] RDW-CV 13.7 11.2 - 14.8 % 06/23/2022 4:17 AM [facility] Platelet Count 305 150 - 400 10? 3 /uL 06/23/2022 4:17 AM [facility] MPV 9.7 9.4 - 12.9 fL 06/23/2022 4:17 AM [facility] nRBC Absolute 0.00 0 10? 3 /uL 06/23/2022 4:17 AM [facility] nRBC Auto 0.0 0 /100 WBC 06/23/2022 4:17 AM CDT [facility] Blood BLOOD SPECIMEN / Unknown Lab Venipuncture / Unknown 06/23/2022 3:47 AM CDT 06/23/2022 4:10 AM CDT Ori Iyer PA-C LAB - HEMATOLOGY OR DERABLES Performing Organization Address City/[facility]/ZIP Co de Phone Number [address] [address], [facility] [phone] * MAGNESIUM BLOOD (06/23/2022 3:06 AM CDT) Magnesium 2.3 1.6 - 2.6 mg/dL 06/23/2022 4:41 AM CDT [facility] Blood BLOOD SPECIMEN / Unknown Lab Venipuncture / Unknown 06/23/2022 3:06 AM CDT 06/23/2022 4:03 AM CDT Anabell Hernandez PA-C LAB - CHEMISTRY ORD ERABLES Performing Organization Address City/[facility]/ZIP Co de Phone Number [address] [address], [facility] [phone] * (ABNORMAL) BASIC METABOLIC PANEL (CALCIUM TOTAL) (06/23/2022 3:06 AM CDT) BUN 10 7 - 26 mg/dL 06/23/2022 4:38 AM CDT [facility] Creatinine 1.09(H) 0.56 - 0.96 mg/dL 06/23/2022 4:38 AM T [facility] Sodium 131(L) 136 - 145 mmol/L 06/23/2022 4:38 AM T [facility] Potassium 4.2 3.5 - 4.5 mmol/L 06/23/2022 4:38 AM [facility] Chloride 100 98 - 107 mmol/L 06/23/2022 4:38 AM T [facility] CO2 22 22 - 29 mmol/L 06/23/2022 4:38 AM [facility] Glucose 111 70 - 115 mg/dL 06/23/2022 4:38 AM [facility] Calcium 8.2(L) 8.4 - 10.2 mg/dL 06/23/2022 4:38 AM [facility] Anion Gap 13 8 - 18 06/23/2022 4:38 AM [facility] BUN/Creatinine Ratio 9 7 - 23 06/23/2022 4:38 AM [facility] Osmolality Calculated 272 270 - 300 mOsm/kg 06/23/2022 4:38 AM [facility] eGFR by CKD-EPI 54(L) >=90 mL/min/1.7 3 m2 06/23/2022 4:38 AM [facility] Blood BLOOD SPECIMEN / Unknown Lab Venipuncture / Unknown 06/23/2022 3:06 AM CDT 06/23/2022 4:03 AM CDT Anabell Hernandez PA-C LAB - CHEMISTRY ORD ERABLES [address] [address], [place] [phone] * GLUCOSE - POINT OF CARE (06/22/2022 4:11 PM CDT) Glucose WB/POC 105 70 - 115 mg/dL 06/22/2022 4:12 PM T [facility] Specimen Type Arterial 06/22/2022 4:12 PM T [facility] Blood BLOOD SPECIMEN / Unknown 06/22/2022 4:11 PM CDT 06/22/2022 4:12 PM CDT Abeba Will DO LAB - POINT OF CARE ORDERABLES [address] [address], [place] [phone] * (ABNORMAL) GLUCOSE - POINT OF CARE (06/22/2022 11:18 AM CDT) Glucose WB/POC 180(H) 70 - 115 mg/dL 06/22/2022 11:19 AM [facility] Specimen Type Cap Fingerstick 2022 11:19 AM [facility] Blood BLOOD SPECIMEN / Unknown 06/22/2022 11:18 AM CDT 06/22/2022 11:19 AM CDT Abeba Will DO LAB - POINT OF CARE ORDERABLES Performing Organization Address City/State/[facility] Co de Phone Number [facility] [address] [place] [address], [facility] [phone] * (ABNORMAL) CBC W/O DIFFERENTIAL (06/22/2022 2:34 AM CDT) WBC 9.1 3.5 - 10.5 10? 3 /uL 06/22/2022 3:11 AM [facility] RBC 2.70(L) 3.80 - 5.20 10? 6 /uL 06/22/2022 3:11 AM [facility] Hemoglobin 8.0(L) 12.0 - 15.6 g/dL 06/22/2022 3:11 AM [facility] Hematocrit 24.2(L) 35.0 - 45.0 % 06/22/2022 3:11 AM [facility] MCV 89.6 80.7 - 98.3 fL 06/22/2022 3:11 AM [facility] MCH 29.6 26.7 - 34.0 pg 06/22/2022 3:11 AM [facility] MCHC 33.1 30.8 - 35.9 g/dL 06/22/2022 3:11 AM [facility] RDW-SD 44.2 36.0 - 50.0 fL 06/22/2022 3:11 AM [facility] RDW-CV 13.5 11.2 - 14.8 % 06/22/2022 3:11 AM [facility] Platelet Count 358 150 - 400 10? 3 /uL 06/22/2022 3:11 AM [facility] MPV 9.2(L) 9.4 - 12.9 fL 06/22/2022 3:11 AM CDT [facility] nRBC Absolute 0.00 0 10? 3 /uL 06/22/2022 3:11 AM CDT [facility] nRBC Auto 0.0 0 /100 WBC 06/22/2022 3:11 AM CDT [facility] Blood BLOOD SPECIMEN / Unknown Lab Venipuncture / Unknown 06/22/2022 2:34 AM CDT 06/22/2022 3:01 AM CDT Ori Iyer PA-C LAB - HEMATOLOGY OR DERABLES [address] [address], [facility] [phone] * (ABNORMAL) MAGNESIUM BLOOD (06/22/2022 2:34 AM CDT) Magnesium 1.5(L) 1.6 - 2.6 mg/dL 06/22/2022 3:29 AM CDT [facility] Blood BLOOD SPECIMEN / Unknown Lab Venipuncture / Unknown 06/22/2022 2:34 AM CDT 06/22/2022 3:02 AM CDT Ori Iyer PA-C LAB - CHEMISTRY ORD ERABLES Performing Organization Address City/[facility]/ZIP Co de Phone Number [address] [address], [place] [phone] * (ABNORMAL) RENAL FUNCTION PANEL (06/22/2022 2:34 AM CDT) BUN 13 7 - 26 mg/dL 06/22/2022 3:29 AM CDT [facility] Creatinine 1.07(H) 0.56 - 0.96 mg/dL 06/22/2022 3:29 AM CDT [facility] Sodium 132(L) 136 - 145 mmol/L 06/22/2022 3:29 AM CDT [facility] Potassium 3.8 3.5 - 4.5 mmol/L 06/22/2022 3:29 AM [facility] Chloride 99 98 - 107 mmol/L 06/22/2022 3:29 AM [facility] CO2 25 22 - 29 mmol/L 06/22/2022 3:29 AM [facility] Glucose 126(H) 70 - 115 mg/dL 06/22/2022 3:29 AM [facility] Albumin 2.8(L) 3.4 - 5.0 g/dL 06/22/2022 3:29 AM [facility] Calcium 8.5 8.4 - 10.2 mg/dL 06/22/2022 3:29 AM [facility] Phosphorus 2.8(L) 2.9 - 5.1 mg/dL 06/22/2022 3:29 AM [facility] Anion Gap 12 8 - 18 06/22/2022 3:29 AM [facility] BUN/Creatinine Ratio 12 7 - 23 06/22/2022 3:29 AM [facility] Osmolality Calculated 276 270 - 300 mOsm/kg 06/22/2022 3:29 AM [facility] eGFR by CKD-EPI 55(L) >=90 mL/min/1.7 3 m2 06/22/2022 3:29 AM [facility] Blood BLOOD SPECIMEN / Unknown Lab Venipuncture / Unknown 06/22/2022 2:34 AM CDT 06/22/2022 3:02 AM CDT Ori Iyer PA-C LAB - CHEMISTRY ORD ERABLES Performing Organization Address City/State/[facility] Co de Phone Number [facility] [address] [place] [address], [facility] [phone] * CORTISOL BLOOD AM (06/22/2022 2:34 AM CDT) Cortisol AM 14.3 3.7 - 19.4 ug/dL 06/22/2022 3:49 AM [facility] Blood BLOOD SPECIMEN / Unknown Lab Venipuncture / Unknown 06/22/2022 2:34 AM CDT 06/22/2022 3:02 AM CDT Narrative [facility] - 06/22/2022 3:49 AM CDT Normal cortisol levels are generally highest in the morning hours and lowest from late evening through the smelter operator 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 ??The PM measurements of cortisol run approximately one-half to one-third of the AM values. Ori Iyer PA-C LAB - CHEMISTRY ORD ERABLES Performing Organization Address [facility] Co de Phone Number [facility] [address] [place] [address], [place] [phone] * GLUCOSE - POINT OF CARE (06/21/2022 5:10 PM CDT) Glucose WB/POC 103 70 - 115 mg/dL 06/21/2022 5:14 PM CDT [facility] Specimen Type Cap Fingerstick 2022 5:14 PM CDT [facility] Blood BLOOD SPECIMEN / Unknown 06/21/2022 5:10 PM CDT 06/21/2022 5:14 PM CDT Abeba Will DO LAB - POINT OF CARE ORDERABLES Performing Organization Address [facility] Co de Phone Number [facility] [address] [place] [address], [place] [phone] * PATHOLOGY TISSUE (06/21/2022 4:40 PM CDT) Case Report Surgical Pathology Report ? Case: [id number] ? Authorizing Provider: ??Carmen Morales MD ? Collected: ? 06/21/2022 04:40 PM ? Ordering Location: ? [facility] ?Received: ?06/22/2022 08:59 AM ? Pathologist: ? Hansa Gusman MD ? Specimen: ?Small Bowel, small bowel biopsy r/o celiac ? 06/25/2022 2:27 PM [facility] PATHOLOGY LAB Final Diagnosis Small intestine, small bowel, biopsy (A): - No histopathologic abnormality - Intact villous and crypt architecture without increased intraepithelial lymphocytes 06/25/2022 2:27 PM [facility] PATHOLOGY LAB Microscopic Description and Comment Microscopic examination substantiates the final diagnosis. 06/25/2022 2:27 PM [facility] PATHOLOGY LAB Clinical History The patient is a 72-year-old woman presented with coffee-ground emesis who underwent upper GI endoscopy. 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 Duodenal bulb erythema, biopsied for evaluation of celiac disease. 06/25/2022 2:27 PM [facility] PATHOLOGY LAB Gross Description The requisition and specimen(s) are identified with the patient's name Kandace Cole. Received in formalin, specimen A , are 5 pink-freeman tissues, 0.3-0.9 cm in greatest dimension and 2.3 x 0.3 x 0.2 cm in aggregate, submitted in toto in cassette A1. DF 06/25/2022 2:27 PM [facility] PATHOLOGY LAB Disclaimer The performance characteristics of all immunohistochemical and indirect immunofluorescence stains (if any) cited in this report were determined by the Histopathology Laboratory of [facility]. Some of these tests were developed [...] (teaching) pathologist. 06/25/2022 2:27 PM CDT [facility] PATHOLOGY LAB Embedded Images 06/25/2022 2:27 PM CDT [facility] PATHOLOGY LAB Resection without Tumor SMALL BOWEL RESECTION SPECIMEN / Unknown 06/21/2022 4:40 PM CDT 06/22/2022 8:59 AM CDT Comment:Pre-op diagnosis: Coffee ground emesis Carmen Morales MD LAB - PATHOLOGY/CYTO LOGY ORDERABLES [facility] PATHOLOGY LAB [address] [place] [address], [facility] [phone] * EGD (06/21/2022 4:24 PM CDT) Report [...] Procedure Code(s): ? --- Professional --- ? 95563, Esophagogastroduode noscopy, flexible, transoral; with biopsy, ? single or multiple Diagnosis Code(s): ?--- Professional --- ?K22.70, Heredia's esophagus without dysplasia ?K92.0, Hematemesis CPT copyright 2019 [employer]. All rights reserved. The codes documented in this report are preliminary and upon business strategist review may be revised to meet current compliance requirements. Carmen Morales, 06/21/2022 5:01:11 PM Note Initiated On: 06/21/2022 4:24 PM Number of Addenda: 0 ? [facility] ? [address] [place] [address] [facility] 06/21/2022 4:24 PM CDT Abeba Will DO GI PROCEDURE ORDERAB LES Performing Organization Address City/[facility]/ZIP Co de Phone Number [facility] * CARDIAC EKG ORDER (06/21/2022 3:29 PM CDT) Narrative 06/21/2022 3:29 PM CDT Ordered by an unspecified provider. Scanned Document CARDIAC SERVICES ORD ERABLES * (ABNORMAL) GLUCOSE - POINT OF CARE (06/21/2022 2:59 PM CDT) Glucose WB/POC 143(H) 70 - 115 mg/dL 06/21/2022 3:04 PM CDT [facility]ORATORY [facility] Specimen Type Cap Fingerstick 2022 3:04 PM CDT [facility] Blood BLOOD SPECIMEN / Unknown 06/21/2022 2:59 PM CDT 06/21/2022 3:04 PM CDT Abeba Will DO LAB - POINT OF CARE ORDERABLES Performing Organization Address [facility] Co de Phone Number [facility] [address] [place] [address], [facility] [phone] * (ABNORMAL) GLUCOSE - POINT OF CARE (06/21/2022 2:00 PM CDT) Pathologist [facility] Glucose WB/POC 47(LL) 70 - 115 mg/dL 06/21/2022 2:04 PM T [facility] Specimen Type Cap Fingerstick 2022 2:04 PM T [facility] Blood BLOOD SPECIMEN / Unknown 06/21/2022 2:00 PM CDT 06/21/2022 2:04 PM CDT Abeba Will DO LAB - POINT OF CARE ORDERABLES [facility] [address] [place] [address], [facility] [phone] * (ABNORMAL) CBC W AUTO DIFFERENTIAL (06/21/2022 2:03 AM CDT) [facility] WBC 8.0 3.5 - 10.5 10? 3 /uL 06/21/2022 2:59 AM [facility] RBC 2.77(L) 3.80 - 5.20 10? 6 /uL 06/21/2022 2:59 AM [facility] Hemoglobin 8.3(L) 12.0 - 15.6 g/dL 06/21/2022 2:59 AM [facility] Hematocrit 25.9(L) 35.0 - 45.0 % 06/21/2022 2:59 AM [facility] MCV 93.5 80.7 - 98.3 fL 06/21/2022 2:59 AM [facility] MCH 30.0 26.7 - 34.0 pg 06/21/2022 2:59 AM [facility] MCHC 32.0 30.8 - 35.9 g/dL 06/21/2022 2:59 AM [facility] RDW-SD 46.8 36.0 - 50.0 fL 06/21/2022 2:59 AM [facility] RDW-CV 13.8 11.2 - 14.8 % 06/21/2022 2:59 AM [facility] Platelet Count 415(H) 150 - 400 10? 3 /uL 06/21/2022 2:59 AM [facility] MPV 9.6 9.4 - 12.9 fL 06/21/2022 2:59 AM [facility] nRBC Absolute 0.00 0 10? 3 /uL 06/21/2022 2:59 AM [facility] nRBC Auto 0.0 0 /100 WBC 06/21/2022 2:59 AM [facility] Neutrophils % 68.7 35.0 - 70.0 % 06/21/2022 2:59 AM [facility] Lymphocytes % 17.2(L) 20.0 - 43.0 % 06/21/2022 2:59 AM [facility] Monocytes % 10.7 5.0 - 13.0 % 06/21/2022 2:59 AM [facility] Eosinophils % 2.3 0.0 - 6.0 % 06/21/2022 2:59 AM [facility] Basophil % 0.6 0.0 - 2.0 % 06/21/2022 2:59 AM [facility] Neutrophils Absolute 5.47 1.60 - 7.00 10? 3 /uL 06/21/2022 2:59 AM [facility] Lymphocyte Absolute 1.37 1.10 - 3.90 10? 3 /uL 06/21/2022 2:59 AM [facility] Monocytes Absolute 0.85 0.26 - 1.07 10? 3 /uL 06/21/2022 2:59 AM [facility] Eosinophils Absolute 0.18 0.00 - 0.47 10? 3 /uL 06/21/2022 2:59 AM [facility] Basophils Absolute 0.05 0.00 - 0.08 10? 3 /uL 06/21/2022 2:59 AM [facility] Immature Granulocytes % 0.5 0.0 - 1.0 % 06/21/2022 2:59 AM [facility] Immature Granulocytes Absolute 0.04 06/21/2022 2:59 AM [facility] Blood BLOOD SPECIMEN / Unknown Lab Venipuncture / Unknown 06/21/2022 2:03 AM CDT 06/21/2022 2:39 AM CDT Deepa Georges MD LAB - HEMATOLOGY ORD ERABLES [facility] [address] [place] [address], [facility] [phone] * (ABNORMAL) COMPREHENSIVE METABOLIC PANEL (06/21/2022 2:03 AM CDT) BUN 14 7 - 26 mg/dL 06/21/2022 3:05 AM [facility] Creatinine 1.11(H) 0.56 - 0.96 mg/dL 06/21/2022 3:05 AM [facility] Sodium 134(L) 136 - 145 mmol/L 06/21/2022 3:05 AM [facility] Potassium 4.2 3.5 - 4.5 mmol/L 06/21/2022 3:05 AM [facility] Chloride 96(L) 98 - 107 mmol/L 06/21/2022 3:05 AM [facility] CO2 25 22 - 29 mmol/L 06/21/2022 3:05 AM [facility] Glucose 54(L) 70 - 115 mg/dL 06/21/2022 3:05 AM [facility] Calcium 9.5 8.4 - 10.2 mg/dL 06/21/2022 3:05 AM [facility] Protein Total 6.0 6.0 - 8.3 g/dL 06/21/2022 3:05 AM [facility] Albumin 3.3(L) 3.4 - 5.0 g/dL 06/21/2022 3:05 AM [facility] Bilirubin Total 0.7 0.2 - 1.2 mg/dL 06/21/2022 3:05 AM [facility] Alkaline Phosphatase 62 40 - 150 U/L 06/21/2022 3:05 AM [facility] ALT 10 5 - 55 U/L 06/21/2022 3:05 AM [facility] AST 15 5 - 34 U/L 06/21/2022 3:05 AM [facility] Anion Gap 17 8 - 18 06/21/2022 3:05 AM [facility] BUN/Creatinine Ratio 13 7 - 23 06/21/2022 3:05 AM [facility] Osmolality Calculated 276 270 - 300 mOsm/kg 06/21/2022 3:05 AM [facility] Albumin/Globulin Ratio 1.2 1.1 - 2.3 06/21/2022 3:05 AM [facility] eGFR by CKD-EPI 53(L) >=90 mL/min/1.7 3 m2 06/21/2022 3:05 AM [facility] Blood BLOOD SPECIMEN / Unknown Lab Venipuncture / Unknown 06/21/2022 2:03 AM CDT 06/21/2022 2:39 AM [facility] Deepa Georges MD LAB - CHEMISTRY CHELO QUILGEY [facility] Organization Address City/State/ZIP Co de Phone Number [address] [address], [facility] [phone] * (ABNORMAL) URINALYSIS REFLEX TO MICROSCOPIC NO CULTURE (06/21/2022 12:50 AM [facility]) Color UA Yellow Straw, Yellow 06/21/2022 1:04 AM [facility] Clarity UA Clear Clear 06/21/2022 1:04 AM [facility] Specific [place] UA 1.048(H) 1.005 - 1.030 06/21/2022 1:04 AM [facility] pH UA 7.0 5.0 - 8.0 pH 06/21/2022 1:04 AM [facility] Protein UA Negative Negative 06/21/2022 1:04 AM [facility] Glucose UA Negative Negative 06/21/2022 1:04 AM [facility] Ketone UA 1+(A) Negative 06/21/2022 1:04 AM [facility] Bilirubin UA Negative Negative 06/21/2022 1:04 AM [facility] Blood UA Negative Negative 06/21/2022 1:04 AM [facility] Nitrite UA Negative Negative 06/21/2022 1:04 AM [facility] Leukocyte Esterase Trace(A) Negative 06/21/2022 1:04 AM CDT [facility] Urobilinogen UA Negative Negative mg/dL 06/21/2022 1:04 AM CDT [facility] RBC UA 0-2 None Seen, 0-2, 3-5 /HPF 06/21/2022 1:04 AM CDT [facility] WBC UA 0-5 None Seen, 0-5 /HPF 06/21/2022 1:04 AM CDT [facility] Squamous Epithelial Cells UA 0-2 None Seen, 0-2, 3-5 /HPF 06/21/2022 1:04 AM CDT [facility] Urine URINE SPECIMEN OBTAINED BY CLEAN CATCH PROCEDURE / Unknown Collection / Unknown 06/21/2022 12:50 AM CDT 06/21/2022 12:57 AM CDT Narrative [facility] - 06/21/2022 1:04 AM CDT Sima Kaufman PA-C LAB - URINALYSIS OR DERABLES [address] [address], [place] [phone] * (ABNORMAL) HEMOGLOBIN (06/20/2022 10:18 PM CDT) Pathologist [facility] Hemoglobin 8.5(L) 12.0 - 15.6 g/dL 06/20/2022 10:42 PM CDT [facility] Blood BLOOD SPECIMEN / Unknown Lab Venipuncture / Unknown 06/20/2022 10:18 PM CDT 06/20/2022 10:39 PM CDT Deepa Georges MD LAB - HEMATOLOGY ORD ERABLES [address] [address], [place] [phone] * B-TYPE NATRIURETIC PEPTIDE (06/20/2022 10:18 PM CDT) Pathologist [facility] BNP 99 <100 pg/mL 06/20/2022 11:17 PM [facility] Comment: A decision threshold of 100 [...] Georges MD LAB - CHEMISTRY CHELO QUIGLEY [facility] [address] [place] [address], [facility] [phone] * CT ANGIO ABDOMEN PELVIS (06/20/2022 5:05 [...] > Dictated by Sherlyn Hopkins DO (residential sales manager). IChaim have personally reviewed and interpreted this examination/study. > Interpreting Provider: Chaim Martins on 06/20/2022 10:47 PM Narrative 06/20/2022 10:47 PM CDT PROCEDURE: ??CT ANGIO ABDOMEN PELVIS, DATE/TIME OF EXAM: ??06/20/2022 5:05 PM, LOCATION ??[facility] INDICATION: R10.12: Abdominal pain, left [...] PELVIS, DATE/TIME OF EXAM: 06/20/2022 5:05PM, LOCATION [facility] INDICATION: R10.12: Abdominal pain, left [...] > Dictated by Sherlyn Hopkins DO (residential sales manager). I, Chaim Martins have personally reviewed [...] spine. Report dictated by Yasir Pierre MD (residential sales manager). I, Kamila Barber MD have personally reviewed and interpreted this examination/study. > Interpreting Provider: Kamila Barber MD on 06/20/2022 4:25 PM Narrative 06/20/2022 4:25 PM CDT PROCEDURE: ??XR CERVICAL SPINE 2 OR 3VW, DATE/TIME OF EXAM: ??06/20/2022 3:13 PM, LOCATION ??[facility] INDICATION: R42: Dizziness R06.02: Shortness of breath [...] 3VW, DATE/TIME OF EXAM: 33:13 PM, LOCATION [facility] INDICATION: R42: Dizziness R06.02: Shortness of breath [...] spine. Report dictated by Yasir Pierre MD (residential sales manager). Kamila Narvaez MD have personally reviewed and interpreted this examination/study. > Interpreting Provider: Kamila Barber MD on 06/20/2022 4:25 PM Adolph Mckinney MD DIAGNOSTIC IMAGING ORDERABLES * XR CHEST 2VW (06/20/2022 3:02 PM CDT) Anatomical Region Laterality Modality Chest Radiographic Vivian ging 06/20/2022 3:13 PM CDT Narrative 06/20/2022 3:49 PM CDT PROCEDURE: ??XR CHEST 2VW, DATE/TIME OF EXAM: ??06/20/2022 3:03 PM, LOCATION [facility] INDICATION: R06.02: Shortness of breath [...] Report dictated by Yasir Pierre MD (residential sales manager). Haroldo Narvaez MD have personally reviewed and interpreted this examination/study. > Interpreting Provider: Haroldo Ball MD on 06/20/2022 3:49 PM Procedure Note Haroldo Ball MD - 06/20/2022 PROCEDURE: XR CHEST 2VW, DATE/TIME OF EXAM: 06/20/2022 3:03 PM, LOCATION [facility] INDICATION: R06.02: Shortness of breath [...] Report dictated by Yasir Pierre MD (residential sales manager). I, Haroldo Ball MD have personally reviewed and interpreted this examination/study. > Interpreting Provider: Haroldo Ball MD on 06/20/2022 3:49 PM Adolph Mckinney MD DIAGNOSTIC IMAGING ORDERABLES * TYPE + SCREEN PANEL (06/20/2022 2:05 PM CDT) Pathologist [facility] Antibody Screen NEG 2:53 PM CDT [facility] BLOOD BANK LAB ABO Rh A POS 06/20/2022 2:53 PM CDT [facility] B[facility]OD BANK LAB Blood Bank BLOOD SPECIMEN / Unknown Venipuncture / Unknown 06/20/2022 2:05 PM CDT 06/20/2022 2:08 PM CDT Adolph Mckinney MD LAB - BLOOD BANK O RDERABLES [facility] BLOOD BANK LAB [address] [place] [address], [facility] [phone] * LACTIC ACID BLOOD (06/20/2022 2:05 PM CDT) [facility] Lactic Acid-Stat 1.1 <=2.0 mmol/L 06/20/2022 2:48 PM CDT [facility] Blood BLOOD SPECIMEN / Unknown Venipuncture / Unknown 06/20/2022 2:05 PM CDT 06/20/2022 2:23 PM CDT Adolph Mckinney MD LAB - CHEMISTRY OR DERABLES Performing Organization Address City/[facility]/ZIP Co de Phone Number [facility] [address] [address], [place] [phone] * LIPASE BLOOD (06/20/2022 2:05 PM CDT) [facility] Lipase 18 8 - 78 U/L 06/20/2022 2:50 PM CDT [facility] Blood BLOOD SPECIMEN / Unknown Venipuncture / Unknown 06/20/2022 2:05 PM CDT 06/20/2022 2:23 PM CDT Narrative [facility] - 06/20/2022 2:50 PM CDT Lipase results from the [employer] Alinity analyzer may not be comparable with other methodologies. Adolph Mckinney MD LAB - CHEMISTRY OR DERABLES [facility] [address] [place] [address], [facility] [phone] * PT-INR [facility] (06/20/2022 2:05 PM CDT) [facility] PT 13.4 12.1 - 14.8 Seconds 06/20/2022 2:48 PM CDT [facility] INR 1.0 See Comment 06/20/2022 2:48 PM CDT [facility] Comment:The suggested therap eutic range for standard coumadin (warfarin) therapy is an INR of 2.0-3.0. For high-risk patients (Mechanical Mitral Valve Prosthesis, etc.), the suggested prophylactic therapeutic range is an INR of 2.5-3.5. Blood BLOOD SPECIMEN / Unknown Venipuncture / Unknown 06/20/2022 2:05 PM CDT 06/20/2022 2:07 PM CDT Adolph Mckinney MD LAB - COAGULATION ORDERABLES [facility] [address] [place] [address], [facility] [phone] * (ABNORMAL) CBC W/O DIFFERENTIAL (06/20/2022 2:05 PM CDT) [facility] WBC 9.5 3.5 - 10.5 10? 3 /uL 06/20/2022 2:27 PM CDT [facility] RBC 3.07(L) 3.80 - 5.20 10? 6 /uL 06/20/2022 2:27 PM [facility] Hemoglobin 9.3(L) 12.0 - 15.6 g/dL 06/20/2022 2:27 PM [facility] Hematocrit 27.6(L) 35.0 - 45.0 % 06/20/2022 2:27 PM [facility] MCV 89.9 80.7 - 98.3 fL 06/20/2022 2:27 PM [facility] MCH 30.3 26.7 - 34.0 pg 06/20/2022 2:27 PM T [facility] MCHC 33.7 30.8 - 35.9 g/dL 06/20/2022 2:27 PM [facility] RDW-SD 45.2 36.0 - 50.0 fL 06/20/2022 2:27 PM [facility] RDW-CV 14.0 11.2 - 14.8 % 06/20/2022 2:27 PM [facility] Platelet Count 463(H) 150 - 400 10? 3 /uL 06/20/2022 2:27 PM [facility] MPV 9.2(L) 9.4 - 12.9 fL 06/20/2022 2:27 PM [facility] nRBC Absolute 0.00 0 10? 3 /uL 06/20/2022 2:27 PM [facility] nRBC Auto 0.0 0 /100 WBC 06/20/2022 2:27 PM [facility] Blood BLOOD SPECIMEN / Unknown Venipuncture / Unknown 06/20/2022 2:05 PM CDT 06/20/2022 2:22 PM CDT Adolph Mckinney MD LAB - HEMATOLOGY O RDERABLES [facility] [address] [place] [address], [facility] [phone] * TROPONIN-I HIGH SENSITIVE REFLEX 1HOUR (06/20/2022 1:05 PM CDT) Troponin I High Sensitive 8 <=14 ng/L 06/20/2022 1:59 PM CDT [facility] Delta Troponin I HS 06/20/2022 1:59 PM CDT [facility] Comment:Delta value intentio anil not calculated. Baseline to 1 hour specimen collection interval exceeded. Blood BLOOD SPECIMEN / Unknown Venipuncture / Unknown 06/20/2022 1:05 PM CDT 06/20/2022 1:23 PM CDT Sima Kaufman PA-C LAB - CHEMISTRY ORD ERABLES Performing Organization Address [facility]/ZIP Co de Phone Number [address] [address], [place] [phone] * TROPONIN-I HIGH SENSITIVE BASELINE + 1HR (06/20/2022 9:49 AM CDT) Pathologist [facility] Troponin I High Sensitive 7 <=14 ng/L 06/20/2022 10:39 AM CDT [facility] Blood BLOOD SPECIMEN / Unknown Venipuncture / Unknown 06/20/2022 9:49 AM CDT 06/20/2022 9:55 AM CDT Sima Kaufman PA-C LAB - CHEMISTRY ORD ERABLES Performing Organization Address City/[facility]/ZIP Co de Phone Number [address] [address], [place] [phone] * (ABNORMAL) COMPREHENSIVE METABOLIC PANEL (06/20/2022 9:49 AM CDT) BUN 14 7 - 26 mg/dL 06/20/2022 10:32 AM CDT [facility] Creatinine 1.02(H) 0.56 - 0.96 mg/dL 06/20/2022 10:32 AM CDT [facility] Sodium 128(L) 136 - 145 mmol/L 06/20/2022 10:32 AM CDT [facility] Potassium 4.3 3.5 - 4.5 mmol/L 06/20/2022 10:32 AM T [facility] Chloride 93(L) 98 - 107 mmol/L 06/20/2022 10:32 AM [facility] CO2 26 22 - 29 mmol/L 06/20/2022 10:32 AM [facility] Glucose 91 70 - 115 mg/dL 06/20/2022 10:32 AM [facility] Calcium 9.8 8.4 - 10.2 mg/dL 06/20/2022 10:32 AM [facility] Protein Total 6.5 6.0 - 8.3 g/dL 06/20/2022 10:32 AM [facility] Albumin 3.5 3.4 - 5.0 g/dL 06/20/2022 10:32 AM [facility] Bilirubin Total 0.6 0.2 - 1.2 mg/dL 06/20/2022 10:32 AM [facility] Alkaline Phosphatase 66 40 - 150 U/L 06/20/2022 10:32 AM [facility] ALT 10 5 - 55 U/L 06/20/2022 10:32 AM [facility] AST 16 5 - 34 U/L 06/20/2022 10:32 AM [facility] Anion Gap 13 8 - 18 06/20/2022 10:32 AM [facility] BUN/Creatinine Ratio 14 7 - 23 06/20/2022 10:32 AM [facility] Osmolality Calculated 266(L) 270 - 300 mOsm/kg 06/20/2022 10:32 AM [facility] Albumin/Globulin Ratio 1.2 1.1 - 2.3 06/20/2022 10:32 AM [facility] eGFR by CKD-EPI 58(L) >=90 mL/min/1.7 3 m2 06/20/2022 10:32 AM [facility] Blood BLOOD SPECIMEN / Unknown Venipuncture / Unknown 06/20/2022 9:49 AM T 06/20/2022 9:55 AM [facility] Sima Kaufman PA-C LAB - CHEMISTRY ORD ERABLES [facility] [address] [place] [address] [phone] * (ABNORMAL) CBC W AUTO DIFFERENTIAL (06/20/2022 9:49 AM CDT) WBC 11.8(H) 3.5 - 10.5 10? 3 /uL 06/20/2022 9:58 AM [facility] RBC 3.02(L) 3.80 - 5.20 10? 6 /uL 06/20/2022 9:58 AM [facility] Hemoglobin 9.0(L) 12.0 - 15.6 g/dL 06/20/2022 9:58 AM [facility] Hematocrit 27.7(L) 35.0 - 45.0 % 06/20/2022 9:58 AM [facility] MCV 91.7 80.7 - 98.3 fL 06/20/2022 9:58 AM [facility] MCH 29.8 26.7 - 34.0 pg 06/20/2022 9:58 AM [facility] MCHC 32.5 30.8 - 35.9 g/dL 06/20/2022 9:58 AM [facility] RDW-SD 45.6 36.0 - 50.0 fL 06/20/2022 9:58 AM [facility] RDW-CV 13.8 11.2 - 14.8 % 06/20/2022 9:58 AM [facility] Platelet Count 449(H) 150 - 400 10? 3 /uL 06/20/2022 9:58 AM [facility] MPV 9.0(L) 9.4 - 12.9 fL 06/20/2022 9:58 AM [facility] nRBC Absolute 0.00 0 10? 3 /uL 06/20/2022 9:58 AM [facility] nRBC Auto 0.0 0 /100 WBC 06/20/2022 9:58 AM [facility] Neutrophils % 84.6(H) 35.0 - 70.0 % 06/20/2022 9:58 AM [facility] Lymphocytes % 6.7(L) 20.0 - 43.0 % 06/20/2022 9:58 AM [facility] Monocytes % 6.6 5.0 - 13.0 % 06/20/2022 9:58 AM T [facility] Eosinophils % 1.1 0.0 - 6.0 % 06/20/2022 9:58 AM T [facility] Basophil % 0.6 0.0 - 2.0 % 06/20/2022 9:58 AM T [facility] Neutrophils Absolute 9.94(H) 1.60 - 7.00 10? 3 /uL 06/20/2022 9:58 AM T [facility] Lymphocyte Absolute 0.79(L) 1.10 - 3.90 10? 3 /uL 06/20/2022 9:58 AM [facility] Monocytes Absolute 0.77 0.26 - 1.07 10? 3 /uL 06/20/2022 9:58 AM [facility] Eosinophils Absolute 0.13 0.00 - 0.47 10? 3 /uL 06/20/2022 9:58 AM T [facility] Basophils Absolute 0.07 0.00 - 0.08 10? 3 /uL 06/20/2022 9:58 AM [facility] Immature Granulocytes % 0.4 0.0 - 1.0 % 06/20/2022 9:58 AM [facility] Immature Granulocytes Absolute 0.05 06/20/2022 9:58 AM [facility] Blood BLOOD SPECIMEN / Unknown Venipuncture / Unknown 06/20/2022 9:49 AM CDT 06/20/2022 9:54 AM CDT Sima Kaufman PA-C LAB - HEMATOLOGY OR DERABLES [facility] [address] [place] [address], [facility] [phone] * EKG 12-LEAD (06/20/2022 9:40 AM CDT) Ventricular Rate 88 BPM [facility] MUSE Atrial Rate 88 BPM [facility] MUSE P-R Interval 176 ms [facility] QRS Duration ms 70 ms [facility] M[facility] Q-T Interval ms 348 ms [facility] QTC Calculation (Bezet) 421 ms [facility] Calculated P [place] 75 degrees [facility] Calculated R [place] 55 degrees [facility] Calculated T [place] 74 degrees [facility] Interpretation EKG NORMAL SINUS RHYTHM NORMAL ECG WHEN COMPARED WITH ECG OF 15-FEB-2022 00:55, VENT. RATE HAS INCREASED by 15 bpm Confirmed by MARIN KEARNS MD ([id number]) on 06/20/2022 1:46:36 PM [facility] MUSE 06/20/2022 9:40 AM CDT 06/20/2022 1:46 PM CDT Sima Kaufman PA-C ECG ORDERABLES [facility] SEBASTIAN documented in this encounter Visit Diagnoses [...] swallow. documented in this encounter Care Teams Core Blower Operator Relationship Specialty Start Date End Date Karrie Phillips MD [facility] [place] [address] PCP - General 03/13/22 documented as of this encounter
--- OUTSIDE RECORDS SUMMARY | 2024-04-12 16:31 | XMS_ITS | Encounter Summary ---
Author Organization [facility] Address [address] [place] [address] Care Team Providers Care Lay Brother Name Role Phone Karrie Phillips MD Primary Care Provider [phone] Reason for Visit * Consult, Test & Treat (Routine) - Closed Specialty Diagnoses / Procedures Referred By Everardo fried Referred To Contact Orthopedic Surgery / Orthopedics Selfreferral, Patient Deon Taylor MD [address] [place] [address] Referral ID Status Reason Start Date Expiration Date Visits Re quested Visits Authorized [id number] Closed 12/04/2022 12/04/2023 1 1 Encounter Details Date Type Department Care Team (Late st Contact Info) Description 06/04/2023 1:45 PM MARINE HABITAT RESOURCE SPECIALIST Office Visit [facility] [address] [place] [address], [place] [address] Deon Taylor MD [address] [place] [address] S/P cervical spinal fusion (Primary Dx) Social [...] and heating? Not hard at all 06/04/2022 [facility] [place] of Occupat ional Health - Occupational Stress [...] lb 3.2 oz) 06/04/2023 2:02 P M MARINE HABITAT RESOURCE SPECIALIST Height - - Body Mass Index 28.57 [...] deltoids biceps triceps wrist extensors wrist flexors loading unit tool setter strength interosseous muscles as well as hip [...] or concerns. This note was transcribed using [employer] dictation software and may include inaccuracies in scheduler which were unrecognized and not corrected. Please reach out to my clinical specialist Delaney De Luna RN at [phone] for any questions or concerns. Deon Taylor MD NE HABITAT RESOURCE SPECIALIST documented in this encounter Plan of Treatment Upcoming Encounters Date Type Department Care Team (Late st Contact Info) Description 06/02/2024 1:45 PM MARINE HABITAT RESOURCE SPECIALIST Office Visit [facility] [address] [facility], [place] [address] Deon Taylor MD [address] [place] [address] documented as of this encounter Visit Diagnoses Diagnosis S/P cervical spinal fusion- Primary Arthrodesis status documented in this encounter Care Teams Lay Brother Relationship Specialty Start Date End Date Karrie Phillips MD [address] [place] [address] PCP - General 03/13/22 documented as of this encounter
--- OUTSIDE RECORDS SUMMARY | 2024-04-12 16:31 | XMS_ITS | Encounter Summary ---
Author Organization [facility] Address [address] [place] [address] Care Team Providers Care Application Developer Name Role Phone Karrie Phillips MD Primary Care Provider [phone] Reason for Visit * Reason Comments Surgical Follow-up Encounter Details Date Type Department Care Team (Late st Contact Info) Description 07/18/2022 10:00 AM CDT Office Visit [facility] [address] [place] [address], [place] [address] Deon Taylor MD [address] [place] [address] [phone] S/P cervical spinal fusion (Primary Dx); Status [...] and heating? Not hard at all 06/04/2022 [facility] [place] of Occupat ional Health - Occupational Stress [...] Avendaño RN at (previously ) or through [employer] if you have any further questions or concerns. [facility] Orthopaedic office contact information: [facility] (at [facility]) [address] [place] [address] [place] [address] [facility] [address] [place] [address], [place] [address] July 18, 2022 To Whom It May Concern: Please use this letter to document that Kandace Cole, : 1950, was in to see Deon Taylor MD on 07/18/2022. Thank you. Sincerely, Deon Taylor MD [facility] CSM 1L documented in this encounter [...] deltoids biceps triceps wrist extensors wrist flexors asian art curator strength interosseous muscles as well as hip [...] st Contact Info) Description 06/02/2024 1:45 PM DENTAL SALES REPRESENTATIVE Office Visit [facility] [address] [place] [address], [place] [address] Deon Taylor MD [address] [place] [address] documented as of this encounter Results * [...] surgery documented in this encounter Care Teams Application Developer Relationship Specialty Start Date End Date Karrie Phillips MD [address] [place] [address] PCP - General 03/13/22 documented as of this encounter
--- OUTSIDE RECORDS SUMMARY | 2024-04-12 16:31 | XMS_ITS | Encounter Summary ---
Author Organization [facility] Address [address] [place] [address] Care Team Providers Care Greens Cutter Name Role Phone Karrie Phillips MD Primary Care Provider [phone] Encounter Details Date Type Department Care Team (Late st Contact Info) Description 09/04/2022 Orders Only [facility] [address] [place] [address], [place] [address] Deon Taylor MD [address] [place] [address] [phone] S/P cervical spinal fusion Social History Tobacco [...] and heating? 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 Report dictated by Joes Kohli MD (residential tech). I, Tony Hansen MD have personally reviewed and interpreted this examination/study. > Interpreting Provider: Tony Hansen MD on 09/04/2022 3:15 PM Procedure Note Tony Hansen MD - 09/04/2022 PROCEDURE: XR CERVICAL SPINE 2 OR 3VW, DATE/TIME OF EXAM: 32:09 PM, LOCATION [facility] INDICATION: Z98.1: S/P cervical spinal [...] Report dictated by Jose Kohli MD (residential tech). I, Tony Hansen MD have personally reviewed and interpreted this examination/study. > Interpreting Provider: Tony Hansen MD on 09/04/2022 3:15PM Deon Taylor MD DIAGNOSTIC IMAGING O RDERABLES documented in this encounter Visit Diagnoses Diagnosis S/P cervical spinal fusion- Primary Arthrodesis status S/P cervical spinal fusion Arthrodesis status documented in this encounter Care Teams Greens Cutter Relationship Specialty Start Date End Date Karrie Phillips MD [address] [place] [address] PCP - General 03/13/22 documented as of this encounter
--- OUTSIDE RECORDS SUMMARY | 2024-04-12 16:31 | XMS_ITS | Encounter Summary ---
Author Organization [facility] Address [address] [place] [address] Care Team Providers Care Transcripter Name Role Phone Karrie Phillips MD Primary Care Provider [phone] Encounter Details Date Type Department Care Team (Late st Contact Info) Description 06/14/2022 Orders Only [facility] [address] [place] [address], [place] [address] Deon Taylor MD [address] [place] [address] [phone] Neck pain Social History Tobacco Use Types [...] hard at all 06/04/2022 [facility] [place] of Occupat ional Health - Occupational [...] st Contact Info) Description 06/02/2024 1:45 PM CORRECTIONAL FACILITY NURSE Office Visit [facility] [address] [facility], [place] [address] Deon Taylor MD [address] [place] [address] documented as of this encounter Visit Diagnoses Diagnosis Neck pain- Primary Cervicalgia documented in this encounter Care Teams Transcripter Relationship Specialty Start Date End Date Karrie Phillips MD [address] [place] [address] PCP - General 03/13/22 documented as of this encounter
--- OUTSIDE RECORDS SUMMARY | 2024-04-12 16:31 | XMS_ITS | Encounter Summary ---
Author Organization [facility] Address [address] [facility] [place] [address] Care Team Providers Care Mobile Application Tester Name Role Phone Karrie Phillips MD Primary Care Provider [phone] Encounter Details Date Type Department Care Team (Latest Contact Info) Description 07/18/2022 11:01 AM CDT - 07/18/2022 11:59 PM CDT Hospital Encounter [facility] DIAGNOSTIC RAD CSM 1L [address] [facility] [address] Deon Taylor MD [address] [place] [address] Discharge Disposition: Home or Self Care Social [...] and heating? Not hard at all 06/04/2022 [facility] [place] of Occupat ional Health - Occupational Stress [...] mouth every evening 06/08/2022 saline nasal spray ([place]; Baby [place]) 0.65 % nasal spray [place] 1 (one) spray into each nostril as needed for Dry Nose 15 mL 02/19/2022 vitamin D3 (Cholecalciferol) 10 MCG (400 UNIT) tablet Take 2 (two) tablets by mouth once daily 06/09/2022 documented as of this encounter Plan of Treatment Upcoming Encounters Date Type Department Care Team (Late st Contact Info) Description 06/02/2024 1:45 PM FORESTRY AIDE Office Visit [facility] [address] [place] [address], [facility] [place] [address] Deon Taylor MD [address] [place] [address] documented as of this encounter Procedures Procedure [...] surgery documented in this encounter Care Teams Mobile Application Tester Relationship Specialty Start Date End Date Karrie Phillips MD [address] [place] [address] PCP - General 03/13/22 documented as of this encounter
--- OUTSIDE RECORDS SUMMARY | 2024-04-12 16:31 | XMS_ITS | Encounter Summary ---
Author Organization [facility] Address [address] [place] [address] Care Team Providers Care Internet Sales Manager Name Role Phone Karrie Phillips MD Primary Care Provider [phone] Encounter Details Date Type Department Care Team (Late st Contact Info) Description 06/03/2023 Orders Only [facility] [address] [place] [address], [place] [address] Deon Taylor MD [address] [place] [address] [phone] S/P cervical spinal fusion Social History Tobacco [...] and heating? Not hard at all 06/04/2022 [facility] [place] of Occupat ional Health - Occupational Stress [...] st Contact Info) Description 06/02/2024 1:45 PM BRANNER MACHINE TENDER Office Visit [facility] Orthoped[facility] [address] [place] [address] Deon Taylor MD [address] [place] [address] documented as of this encounter Results * XR CERVICAL SPINE 2 OR 3VW (06/04/2023 1:57 PM BRANNER MACHINE TENDER) Anatomical Region Laterality Modality Spine Radiographic Vivian ging 06/04/2023 1:57 PM BRANNER MACHINE TENDER Impressions 06/04/2023 2:28 PM BRANNER MACHINE TENDER IMPRESSION: Redemonstration of posterior instrumented spinal fusion hardware of C4-T2 with unchanged alignment. Report dictated by Joey Herman MD, (residential direct support professional). I, Petar Spears MD have personally reviewed and interpreted this examination/study. > Interpreting Provider: Petar Spears MD on 06/04/2023 2:28 PM Narrative 06/04/2023 2:28 PM BRANNER MACHINE TENDER PROCEDURE: ??XR CERVICAL SPINE 2 OR 3VW, DATE/TIME OF EXAM: ??06/04/2023 1:57 PM, LOCATION ??[facility] INDICATION: Z98.1: S/P cervical spinal fusion [...] 3VW, DATE/TIME OF EXAM: 41:57 PM, LOCATION [facility] INDICATION: Z98.1: S/P cervical spinal fusion [...] Report dictated by Joey Herman MD, (residential direct support professional). I, Petar Spears MD have personally reviewed and interpreted this examination/study. > Interpreting Provider: Petar Spears MD on 06/04/2023 2:28 PM Deon Taylor MD DIAGNOSTIC IMAGING O RDERABLES documented in this encounter Visit Diagnoses Diagnosis S/P cervical spinal fusion- Primary Arthrodesis status S/P cervical spinal fusion Arthrodesis status documented in this encounter Care Teams Internet Sales Manager Relationship Specialty Start Date End Date Karrie Phillips MD [address] [place] [address] PCP - General 03/13/22 documented as of this encounter
--- OUTSIDE RECORDS SUMMARY | 2024-04-12 16:31 | XMS_ITS | Encounter Summary ---
Author Organization [facility] Address [address] [place] [address] Care Team Providers Care Wood Getter Name Role Phone Karrie Phillips MD Primary Care Provider [phone] Encounter Details Date Type Department Care Team (Latest Contact Info) Description 12/04/2022 2:44 PM CDT - 12/04/2022 11:59 PM CDT Hospital Encounter [facility] DIAGNOSTIC RAD CSM 1L [address] [facility] [address] Deon Taylor MD [address] [place] [address] Discharge Disposition: Home or Self Care Social [...] and heating? Not hard at all 06/04/2022 [facility] [place] of Occupat ional Health - Occupational Stress [...] mouth every evening 06/08/2022 saline nasal spray ([place]; Baby [place]) 0.65 % nasal spray [place] 1 (one) spray into each nostril as needed for Dry Nose 15 mL 02/19/2022 vitamin D3 (Cholecalciferol) 10 MCG (400 UNIT) tablet Take 2 (two) tablets by mouth once daily 06/09/2022 documented as of this encounter Plan of Treatment Upcoming Encounters Date Type Department Care Team (Late st Contact Info) Description 06/02/2024 1:45 PM CASINO FLOOR WALKER Office Visit [facility] - Orthoped[facility] [address] [facility], [place] [address] Deon Taylor MD [facility] [place] [address] documented as of this encounter Procedures Procedure [...] alignment. Report dictated by Caesar Carpio MD (radiology special procedure tech). I, Petar Spears MD have personally reviewed and interpreted this examination/study. > Interpreting Provider: Petar Spears MD on 12/04/2022 3:02 PM Narrative 12/04/2022 3:02 PM CDT PROCEDURE: ??XR CERVICAL SPINE 2 OR 3VW, DATE/TIME OF EXAM: ??12/04/2022 2:47 PM, LOCATION ??[facility] INDICATION: Z98.1: S/P cervical spinal fusion [...] 3VW, DATE/TIME OF EXAM: 32:47 PM, LOCATION [facility] INDICATION: Z98.1: S/P cervical spinal fusion [...] alignment. Report dictated by Caesar Carpio MD (radiology special procedure tech). I, Petar Spears MD have personally reviewed and interpreted this examination/study. > Interpreting Provider: Petar Spears MD on 12/04/2022 3:02 PM Deon Taylor MD DIAGNOSTIC IMAGING O RDERABLES documented in this encounter Visit Diagnoses Diagnosis S/P cervical spinal fusion Arthrodesis status documented in this encounter Care Teams Wood Getter Relationship Specialty Start Date End Date Karrie Phillips MD [address] [place] [address] PCP - General 03/13/22 documented as of this encounter
--- OUTSIDE RECORDS SUMMARY | 2024-04-12 16:31 | XMS_ITS | Encounter Summary ---
Author Organization [facility] Address [address] [place] [address] Care Team Providers Care Director Of Medicare Name Role Phone Karrie Phillips MD Primary Care Provider [phone] Reason for Visit * Reason Comments Pain Neck * Consult, Test & Treat (Routine) - Closed Specialty Diagnoses / Procedures Referred By Contac t Referred To Contact Orthopedic Surgery / Orthopedics Selfreferral, Patient Deon Taylor MD [address] [place] [address] Referral ID Status Reason Start Date Expiration Date Visits Re quested Visits Authorized [id number] Closed 09/04/2022 09/04/2023 1 1 Encounter Details Date Type Department Care Team (Late st Contact Info) Description 09/04/2022 2:00 PM CDT Office Visit [facility] [address] [place] [address], [place] [address] Deon Taylor MD [address] [place] [address] S/P cervical spinal fusion (Primary Dx) [...] and heating? Not hard at all 06/04/2022 [facility] of Occupat ional [facility] - Occupational Stress Questionnaire Answer Date [...] 911. Please contact Anabell Avendaño RN at [phone] (previously [phone]) or through [employer] if you have any further questions or concerns. [facility] Orthopaedic office contact information: [facility] ([facility]) [address] [place] [address] [place] [address] [facility] [address] [place] [address], [place] [address] September 04, 2022 To Whom It May Concern: Please use this letter to document that Kandace Cole, : 1950, was in to see Deon Taylor MD on 09/04/2022. Thank you. Sincerely, Deon Taylor MD [facility] 1L documented in this encounter Progress [...] deltoids biceps triceps wrist extensors wrist flexors continuous absorption process operator strength interosseous muscles as well as hip [...] 67 (moderate) This note was transcribed using [employer] dictation software and may include inaccuracies in lime burner which were unrecognized and not corrected. Please reach out to my clinical nurse, Anabell Avendaño RN [phone] for any questions or concerns. Deon Taylor MD documented in this encounter Plan of Treatment Upcoming Encounters Date Type Department Care Team (Late st Contact Info) Description 06/02/2024 1:45 PM BEEHIVE KILN CHARCOAL BURNER Office Visit [facility] [address] [place] [address], [place] [address] Deon Taylor MD [address] [place] [address] documented as of this encounter Visit Diagnoses Diagnosis S/P cervical spinal fusion- Primary Arthrodesis status documented in this encounter Care Teams Director Of Medicare Relationship Specialty Start Date End Date Karrie Phillips MD [address] [place] [address] PCP - General 03/13/22 documented as of this encounter
--- OUTSIDE RECORDS SUMMARY | 2024-04-12 16:31 | XMS_ITS | Encounter Summary ---
Author Organization [facility] Address [address] [facility] [place] [address] Care Team Providers Care Camp Head Counselor Name Role Phone Karrie Phillips MD Primary Care Provider [phone] Reason for Visit * Reason Comments Surgical Follow-up * Consult, Test & Treat (Routine) - Closed Specialty Diagnoses / Procedures Referred By Contac t Referred To Contact Orthopedic Surgery / Orthopedics Selfreferral, Patient Deon Taylor MD [address] [place] [address] Referral ID Status Reason Start Date Expiration Date Visits Re quested Visits Authorized [id number] Closed 12/04/2022 12/04/2023 1 1 Encounter Details Date Type Department Care Team (Late st Contact Info) Description 12/04/2022 1:45 PM CDT Office Visit [facility] [address] [place] [address], [place] [address] Deon Taylor MD [address] [place] [address] S/P cervical spinal fusion (Primary Dx) [...] and heating? Not hard at all 06/04/2022 [facility] [place] of Occupat ional Health - Occupational Stress [...] place to sleep or slept in a mcfp (including now)? No 06/04/2022 Sex and Gender [...] Please contact Dr. Taylor's clinical specialist at [phone] or through [employer] if you have any further questions or concerns. [facility] Orthopaedic office contact information: [facility] ([facility]) [address] [place] [address] [place] [address] [facility] [address] [place] [address], [place] [address] December 04, 2022 To Whom It May Concern: Please use this letter to document that Kandace Cole, : 1950, was in to see Deon Taylor MD on 12/04/2022. Thank you. Sincerely, Deon Taylor MD [facility] ORTHO CSM 1L documented in this encounter Progress Notes * Aleyda Rebollar MD - 12/04/2022 2:39 PM CDT [facility] Orthopedic Spine Surgery Clinic Note Kandace Cole, 72 year old, female : 1950 CSN: [id number] Primary Care Physician: Karrie Phillips MD, MD [...] 100 MG tablet ??? saline nasal spray ([place]; Baby [place]) 0.65 % nasal spray ??? vitamin D3 [...] Please reach out to my clinical specialist [phone] with any questions or concerns. 12/04/2022 2:50 [...] (severe dysfunction) This note was transcribed using [employer] dictation software and may include inaccuracies in technical instructor which were unrecognized and not corrected. Deon Taylor MD documented in this encounter Plan of Treatment Upcoming Encounters Date Type Department Care Team (Late st Contact Info) Description 06/02/2024 1:45 PM ENVIRONMENTAL INTERN Office Visit [facility] - Orthopedics [address] [place] [address], [place] [address] Deon Taylor MD [address] [place] [address] documented as of this encounter Results * XR CERVICAL SPINE 2 OR 3VW (12/04/2022 2:45 PM CDT) Anatomical Region Laterality Modality Spine Radiographic Vivian ging 12/04/2022 2:53 PM CDT Impressions 12/04/2022 3:02 PM CDT IMPRESSION: Redemonstrated C4-T2 posterior instrumentation with unchanged alignment. Report dictated by Caesar Carpio MD (residential finish carpenter). I, Petar Spears MD have personally reviewed and interpreted this examination/study. > Interpreting Provider: Petar Spears MD on 12/04/2022 3:02 PM Narrative 12/04/2022 3:02 PM CDT PROCEDURE: ??XR CERVICAL SPINE 2 OR 3VW, DATE/TIME OF EXAM: ??12/04/2022 2:47 PM, LOCATION ??[facility] INDICATION: Z98.1: S/P cervical spinal [...] DATE/TIME OF EXAM: 32:47 PM, LOCATION [facility] INDICATION: Z98.1: S/P cervical spinal [...] Report dictated by Caesar Carpio MD (residential finish carpenter). I, Petar Spears MD have personally reviewed and interpreted this examination/study. > Interpreting Provider: Petar Spears MD on 12/04/2022 3:02 PM Deon Taylor MD DIAGNOSTIC IMAGING O RDERABLES documented in this encounter Visit Diagnoses Diagnosis S/P cervical spinal fusion- Primary Arthrodesis status S/P cervical spinal fusion Arthrodesis status documented in this encounter Care Teams Camp Head Counselor Relationship Specialty Start Date End Date Karrie Phillips MD [facility] [place] [place] [address] PCP - General 03/13/22 documented as of this encounter
--- OUTSIDE RECORDS SUMMARY | 2024-04-12 16:31 | XMS_ITS | Encounter Summary ---
Author Organization [facility] Address [address] [place] [address] Care Team Providers Care Sterile Processing Tech Name Role Phone Karrie Phillips MD Primary Care Provider [phone] Encounter Details Date Type Department Care Team (Latest Contact Info) Description 09/04/2022 2:04 PM CDT - 09/04/2022 11:59 PM CDT Hospital Encounter [facility] DIAGNOSTIC RAD CSM 1L [address] [facility] [place] [address] Deon Taylor MD [address] [place] [address] Discharge Disposition: Home or Self Care Social [...] and heating? Not hard at all 06/04/2022 [facility] of Occupat ional Health - Occupational Stress [...] mouth every evening 06/08/2022 saline nasal spray ([place]; Baby [place]) 0.65 % nasal spray [place] 1 (one) spray into each nostril as needed for Dry Nose 15 mL 02/19/2022 vitamin D3 (Cholecalciferol) 10 MCG (400 UNIT) tablet Take 2 (two) tablets by mouth once daily 06/09/2022 documented as of this encounter Plan of Treatment Upcoming Encounters Date Type Department Care Team (Late st Contact Info) Description 06/02/2024 1:45 PM MAINTENANCE AND REPAIR WORKER Office Visit [facility] [address] [place] [address], [facility] [place] [address] Deon Taylor MD [address] [place] [address] documented as of this encounter Procedures Procedure [...] DATE/TIME OF EXAM: ??09/04/2022 2:09 PM, LOCATION ??[facility] INDICATION: Z98.1: S/P cervical spinal [...] normal. Report dictated by Jose Kohli MD (resident in diagnostic radiology). I, Tony Hansen MD have personally reviewed and interpreted this examination/study. > Interpreting Provider: Tony Hansen MD on 09/04/2022 3:15 PM Procedure Note Tony Hansen MD - 09/04/2022 PROCEDURE: XR CERVICAL SPINE 2 OR 3VW, DATE/TIME OF EXAM: 32:09 PM, LOCATION [facility] INDICATION: Z98.1: S/P cervical spinal [...] normal. Report dictated by Jose Kohli MD (resident in diagnostic radiology). I, Tony Hansen MD have personally reviewed and interpreted this examination/study. > Interpreting Provider: Tony Hansen MD on 09/04/2022 3:15PM Deon Taylor MD DIAGNOSTIC IMAGING O RDERABLES documented in this encounter Visit Diagnoses Diagnosis S/P cervical spinal fusion Arthrodesis status documented in this encounter Care Teams Sterile Processing Tech Relationship Specialty Start Date End Date Karrie Phillips MD [address] [place] [address] PCP - General 03/13/22 documented as of this encounter
--- OUTSIDE RECORDS SUMMARY | 2024-04-12 16:32 | XMS_ITS | Encounter Summary ---
Author Organization [facility] Address [address] [place] [address] Care Team Providers Care Lawn And Garden Technician Name Role Phone Unavailable Primary Care Provider Unavailabl e Reason for Visit * Reason Comments Transitional Care Encounter Details Date Type Department Care Team (Late st Contact Info) Description 02/21/2022 Transitional Care Transitional Care at [address] [address] Madhavi Vega, textile examiner Social History Tobacco Use Types Packs/Day Years [...] telephone: Patient with recent IP discharge from [facility] on 02/19/22. RN attempted to reach Kandace Cole today by telephone ([phone]) to complete 48 hour post discharge follow-up contact. RN was unable to reach Kandace at this time and this RN left voice message, encouraging patient to call this assembly instructions writer back when available to provide update since last follow-up contact. RN will await call back from and will continue to follow Patient for Bridge clinic appointment. ?? Call Duration: 1 min Madhavi Vega RN, BSN Packing Room Worker, [facility] Office: [phone] 02/21/2022 ER SALES AND SERVICE ASSOCIATE documented in this encounter Plan of Treatment Upcoming Encounters Date Type Department Care Team (Late st Contact Info) Description 06/02/2024 1:45 PM CENTER SALES AND SERVICE ASSOCIATE Office Visit [facility], [place] [address] Deon Taylor MD [address] [place] [address] documented as of this encounter Visit Diagnoses Not on filedocumented in this encounter
--- OUTSIDE RECORDS SUMMARY | 2024-04-12 16:32 | XMS_ITS | Encounter Summary ---
Author Organization [facility] Address [address] [facility] [place] [address] Care Team Providers Care Germination Testing Manager Name Role Phone Karrie Phillips MD Primary Care Provider [phone] Encounter Details Date Type Department Care Team (Latest Contact Info) Description 05/15/2022 12:00 PM ADULT BASIC STUDIES TEACHER - 05/15/2022 1:26 PM [facility] Hospital Encounter [facility] PAT [address] [place] [phone] Unknown, Provider Discharge Disposition: Home or Self [...] Comments Blood Pressure 130/54 05/15/2022 12:22 PM ADULT BASIC STUDIES TEACHER Pulse 72 05/15/2022 12:22 PM ADULT BASIC STUDIES TEACHER Temperature 36.9 ??C (98.4 ??F) 05/15/2022 12:[address] Respiratory Rate 16 05/15/2022 12:22 PM ADULT BASIC STUDIES TEACHER Oxygen Saturation 100% 05/15/2022 12:22 PM ADULT BASIC STUDIES TEACHER Inhaled Oxygen Concentration - - Weight 61.3 kg (135 lb 3.2 oz) 05/15/2022 12:22 PM ADULT BASIC STUDIES TEACHER Height 154.9 cm (5' 1 ) 05/15/2022 12:22 PM ADULT BASIC STUDIES TEACHER Body Mass Index 25.55 05/15/2022 12:22 PM ADULT BASIC STUDIES TEACHER documented in this encounter Functional Status Functional [...] mouth every evening 06/08/2022 saline nasal spray ([place]; Baby [place]) 0.65 % nasal spray [place] 1 (one) spray into each nostril as [...] st Contact Info) Description 06/02/2024 1:45 PM ADULT BASIC STUDIES TEACHER Office Visit [facility] - [facility] [address] [place] [address], [facility] [place] [address] Deon Taylor MD [address] [place] [address] documented as of this encounter Results * TYPE + SCREEN PANEL (05/15/2022 1:52 PM ADULT BASIC STUDIES TEACHER) Antibody Screen NEG 3:13 PM ADULT BASIC STUDIES TEACHER [facility] BLOOD BANK LAB ABO Rh A POS 05/15/2022 3:13 PM ADULT BASIC STUDIES TEACHER [facility] BLOOD BANK LAB Blood Bank BLOOD SPECIMEN / Unknown Lab Venipuncture / Unknown 05/15/2022 1:52 PM ADULT BASIC STUDIES TEACHER 05/15/2022 2:23 PM ADULT BASIC STUDIES TEACHER Provider Unknown LAB - BLOOD BANK ORD ERABLES [facility] BLOOD BANK LAB [address] [place] [address], [facility] [phone] * (ABNORMAL) BASIC METABOLIC PANEL (CALCIUM TOTAL) (05/15/2022 1:52 PM ADULT BASIC STUDIES TEACHER) BUN 20 7 - 26 mg/dL 05/15/2022 2:49 PM [facility] Creatinine 1.53(H) 0.56 - 0.96 mg/dL 05/15/2022 2:49 PM [facility] Sodium 137 136 - 145 mmol/L 05/15/2022 2:49 PM [facility] Potassium 4.6(H) 3.5 - 4.5 mmol/L 05/15/2022 2:49 PM [facility] Chloride 103 98 - 107 mmol/L 05/15/2022 2:49 PM [facility] CO2 25 22 - 29 mmol/L 05/15/2022 2:49 PM [facility] Glucose 107 70 - 115 mg/dL 05/15/2022 2:49 PM [facility] Calcium 9.4 8.4 - 10.2 mg/dL 05/15/2022 2:49 PM [facility] Anion Gap 14 8 - 18 05/15/2022 2:49 PM [facility] BUN/Creatinine Ratio 13 7 - 23 05/15/2022 2:49 PM [facility] Osmolality Calculated 287 270 - 300 mOsm/kg 05/15/2022 2:49 PM [facility] eGFR by CKD-EPI 36(L) >=90 mL/min/1.7 3 m2 05/15/2022 2:49 PM [facility] Blood BLOOD SPECIMEN / Unknown Lab Venipuncture / Unknown 05/15/2022 1:52 PM ADULT BASIC STUDIES TEACHER 05/15/2022 2:20 PM ADULT BASIC STUDIES TEACHER Provider Unknown LAB - CHEMISTRY [facility] [address] [place] [address], [facility] [phone] * (ABNORMAL) CBC W/O DIFFERENTIAL (05/15/2022 1:52 PM ADULT BASIC STUDIES TEACHER) WBC 6.6 3.5 - 10.5 10? 3 /uL 05/15/2022 2:29 PM [facility] RBC 3.34(L) 3.80 - 5.20 10? 6 /uL 05/15/2022 2:29 PM [facility] Hemoglobin 9.9(L) 12.0 - 15.6 g/dL 05/15/2022 2:29 PM [facility] Hematocrit 30.4(L) 35.0 - 45.0 % 05/15/2022 2:29 PM [facility] MCV 91.0 80.7 - 98.3 fL 05/15/2022 2:29 PM [facility] MCH 29.6 26.7 - 34.0 pg 05/15/2022 2:29 PM [facility] MCHC 32.6 30.8 - 35.9 g/dL 05/15/2022 2:29 PM [facility] RDW-SD 43.3 36.0 - 50.0 fL 05/15/2022 2:29 PM [facility] RDW-CV 13.0 11.2 - 14.8 % 05/15/2022 2:29 PM [facility] Platelet Count 329 150 - 400 10? 3 /uL 05/15/2022 2:29 PM [facility] MPV 9.8 9.4 - 12.9 fL 05/15/2022 2:29 PM [facility] nRBC Absolute 0.00 0 10? 3 /uL 05/15/2022 2:29 PM [facility] nRBC Auto 0.0 0 /100 WBC 05/15/2022 2:29 PM [facility] Blood BLOOD SPECIMEN / Unknown Lab Venipuncture / Unknown 05/15/2022 1:52 PM ADULT BASIC STUDIES TEACHER 05/15/2022 2:20 PM ADULT BASIC STUDIES TEACHER Provider Unknown LAB - HEMATOLOGY ORD ERABLES [facility] [address] [place] [address], [facility] [phone] documented in this encounter Visit Diagnoses Diagnosis Preop examination- Primary Preoperative examination, unspecified documented in this encounter Care Teams Germination Testing Manager Relationship Specialty Start Date End Date Karrie Phillips MD [address] [place] [phone] PCP - General 03/13/22 documented as of this encounter
--- OUTSIDE RECORDS SUMMARY | 2024-04-12 16:32 | XMS_ITS | Encounter Summary ---
Author Organization [facility] Address [facility] [facility] [address] [place] [address] Care Team Providers Care Customer Support Engineer Name Role Phone Md Generic Willa HANEY Primary Care Provider Unavailable Miah Haney MD Primary Care Provider Unavailable Md Generic Willa HANEY Primary Care Provider Unavailable Encounter Details Date Type Department Care Team ([facility] st Contact Info) Description 09/10/2008 Abstract [facility] [address] [place] [address] Aldo Joy MD [address] [facility] [address] [address] Social History Tobacco Use Types Packs/Day Years [...] on filedocumented in this encounter Care Teams Customer Support Engineer Relationship Specialty Start Date End Date Miah Haney MD PCP - General 12/31/12 Miah Haney MD PCP - General 10/13/12 Miah Haney MD PCP - General 09/15/10 documented as of this encounter
--- OUTSIDE RECORDS SUMMARY | 2024-04-12 16:32 | XMS_ITS | Encounter Summary ---
Author Organization [facility] Address [address] [facility] [place] [address] Care Team Providers Care Geochemistry Teacher Name Role Phone Unavailable Primary Care Provider Unavailabl e Reason for Visit * Reason Onset Date Comments ED Referral 02/14/2022 Encounter Details Date Type Department Care Team (Late st Contact Info) Description 02/14/2022 Telephone [facility] [address] [place] [address] [phone] Makenzie Sin DO [address] [place] [id number] ED Referral Social History Tobacco Use Types [...] 72 year old female currently in the [facility] ED. Per [facility] care team, the patient [...] patient who was amenable to transfer to [facility] for evaluation. Requested that her images be sent on a disc due to inability to access them in [facility] or [facility]. Makenzie Sin DO Ophthalmology Resident 02/14/2022 7:54 PM O SURVEY WORKER documented in this encounter Plan of Treatment Upcoming Encounters Date Type Department Care Team (Late st Contact Info) Description 06/02/2024 1:45 PM RADIO SURVEY WORKER Office Visit [facility] - Orthopedics [address] [place] [address], [place] [address] Deon Taylor MD [address] [place] [address] documented as of this encounter Visit Diagnoses Not on filedocumented in this encounter
--- OUTSIDE RECORDS SUMMARY | 2024-04-12 16:32 | XMS_ITS | Encounter Summary ---
Author Organization [facility] Address [address] [place] [address] Care Team Providers Care Cheese Factory Worker Name Role Phone Karrie Phillips MD Primary Care Provider [phone] Reason for Visit * Reason Comments Pain Neck Encounter Details Date Type Department Care Team (Late st Contact Info) Description 03/13/2022 1:00 PM BALL ASSEMBLER Office Visit [facility] [address] [place] [address], [place] [address] Deon Taylor MD [address] [place] [phone] Cervical myelopathy (HCC) (Primary Dx) Social History [...] (142 lb 9.6 oz) 03/13/2022 12:52 PM BALL ASSEMBLER Height 154.9 cm (5' 1 ) 03/13/2022 12:52 PM BALL ASSEMBLER Body Mass Index 26.94 03/13/2022 12:52 PM BALL ASSEMBLER documented in this encounter Functional Status Functional [...] Anabell Avendaño, SANTI - 03/13/2022 1:42 PM BALL ASSEMBLER Kandace Cole 03/13/2022 Follow up: Our office will contact you with a surgery date and provide you with more specific instructions for surgery once the date is confirmed. Radha is Dr. Taylor's marketing administrative assistant and is your contact center team lead for scheduling your surgery. If you have not heard from her within a week, you may contact her at [phone]. We will help you schedule an appointment [...] contact Anabell Avendaño RN at or through [employer] if you have any furtherquestions or concerns. For medical emergencies please call [facility]. [facility] Orthopaedic office contact information: [facility] (at [facility]) [address] [place] [address], [place] [address] [facility] [address] [place] [address], [place] [address] March 13, 2022 To Whom It May Concern: Please use this letter to document that Kandace Candace Cole, : 1950, was in to see Deon Taylor MD on 03/13/2022. Thank you. Sincerely, Deon Taylor MD [facility] CSM 1L ASSEMBLER documented in this encounter Progress Notes * [...] for further surgery, blood clots, PE, stroke, OR, paralysis, . After we reviewed of the [...] PHQ-2 Score 3 (Further screening recommended) Deon aTylor MD ASSEMBLER * Bria Iniguez MD - 03/13/2022 1:04 PM CST [facility] Orthopedic Spine Surgery Clinic Note Kandace Cole, 72 year old, female : 1950 CSN: [id number] Primary Care Physician: Karrie Phillips MD, MD [...] 200 MG tablet ??? saline nasal spray ([place]; Baby [place]) 0.65 % nasal spray No current facility-administered [...] needfor further surgery, blood clots, PE, stroke, OR, paralysis, . After we reviewed of the risks a nd benefits the patient wished to proceed with the surgery as planned. - Will plan to proceed with C4-7 PISF with C5-6 laminectomies - Follow up for surgery Bria Iniguez MD 03/13/2022 ASSEMBLER documented in this encounter Plan of Treatment Upcoming Encounters Date Type Department Care Team (Late st Contact Info) Description 06/02/2024 1:45 PM BALL ASSEMBLER Office Visit [facility] - Orthopedics [address] [place] [address], [place] [address] Deon Taylor MD [address] [place] [phone] documented as of this encounter Visit Diagnoses Diagnosis Cervical myelopathy (HCC)- Primary Cervical spondylosis with myelopathy documented in this encounter Care Teams Cheese Factory Worker Relationship Specialty Start Date End Date Karrie Phillips MD [address] [place] [id number] PCP - General 03/13/22 documented as of this encounter
--- OUTSIDE RECORDS SUMMARY | 2024-04-12 16:32 | XMS_ITS | Encounter Summary ---
Author Organization [facility] Address [address] [facility] [place] [address] Care Team Providers Care Paper Tube Machine Operator Name Role Phone Unavailable Primary Care Provider Unavailabl e Reason for Visit * Reason Onset Date Comments Appointment 02/26/2022 Encounter Details Date Type Department Care Team (Late st Contact Info) Description 02/26/2022 Telephone [facility] [address] [facility], [place] [address] Anabell Avendaño, RN Appointment Social [...] Anabell Avendaño RN - 02/26/2022 12:26 PM BUILDING PRINCIPAL Scheduled pt for clinic appt with Dr. Taylor on 03/13. Provided her with clinic details and contact information to call with additional questions or concerns. DING PRINCIPAL documented in this encounter Plan of Treatment Upcoming Encounters Date Type Department Care Team (Late st Contact Info) Description 06/02/2024 1:45 PM BUILDING PRINCIPAL Office Visit [facility] [address] [place] [address], [facility] [place] [address] Deon Taylor MD [address] [place] [address] documented as of this encounter Visit Diagnoses Not on filedocumented in this encounter
--- OUTSIDE RECORDS SUMMARY | 2024-04-12 16:32 | XMS_ITS | Encounter Summary ---
Author Organization [facility] Address [facility] [place] [address] [place] [address] Care Team Providers Care Show Host/Hostess Name Role Phone Md Generic Willa HANEY Primary Care Provider Unavailable Miah Haney MD Primary Care Provider Unavailable Md Generic Willa HANEY Primary Care Provider Unavailable Encounter Details Date Type Department Care Team (Late st Contact Info) Description 10/05/2008 Abstract [facility] [place] [address] Adi Vieira MD [address] [place] [address] Social History Tobacco Use Types Packs/Day Years [...] on filedocumented in this encounter Care Teams Show Host/Hostess Relationship Specialty Start Date End Date Miah Haney MD PCP - General 12/31/12 Miah Haney MD PCP - General 10/13/12 Miah Haney MD PCP - General 09/15/10 documented as of this encounter
--- OUTSIDE RECORDS SUMMARY | 2024-04-12 16:32 | XMS_ITS | Encounter Summary ---
Author Organization [facility] Address [address] [place] [address] Care Team Providers Care Rifle Case Repairer Name Role Phone Unavailable Primary Care Provider Unavailabl e Reason for Visit * Reason Comments Fall BIBEMS transfer from [place], fall today with zygomatic fracture, -loc, -thinners. Denies vision changes Facial Fracture * Auth/Cert (Routine) Specialty Diagnoses / Procedures Referred By Contac t Referred To Contact Referral ID Status Reason Start Date Expiration Date Visits Re quested Visits Authorized [id number] 1 1 Encounter Details Date Type Department Care Team (Late st Contact Info) Description 02/14/2022 10:07 PM PRICING SUPERVISOR - 02/19/2022 2:23 PM [facility] Hospital Encounter SL 8S ACUTE [address] [place] [id number] Justo Sparrow MD [address] [facility] [place] [id number] Abeba Will, [address] [place] [address] Marii Light MD [address] [facility] [address] [place] [address] Internal Medicine Discharge Disposition: Home [...] Comments Blood Pressure 117/58 02/19/2022 11:27 AM PRICING SUPERVISOR Pulse 88 02/19/2022 11:27 AM PRICING SUPERVISOR Temperature 36.6 ??C (97.9 ??F) 02/19/2022 11:[address] Respiratory Rate 16 02/19/2022 11:27 AM PRICING SUPERVISOR Oxygen Saturation 98% 02/19/2022 11:27 AM PRICING SUPERVISOR Inhaled Oxygen Concentration - - Weight 70.3 kg (155 lb) 02/14/2022 10:27 PM PRICING SUPERVISOR Height 165.1 cm (5' 5 ) 02/14/2022 10:27 PM PRICING SUPERVISOR Body Mass Index 25.79 02/14/2022 10:27 PM PRICING SUPERVISOR documented in this encounter Functional Status Functional [...] Hospital Discharge Summary Patient ID: Kandace Cole [id number] 72 year old 1950 Admit date: 02/14/2022 [...] U for ophtho and ENT evaluation. At [facility], ENT was consulted, no acute intervention. They [...] 0.65 % nasal spray Commonly known as: Macomb; Baby Bellona Rochester 1 (one) spray into each nostril as [...] Your Medications These medications were sent to [facility] - [address] [facility] [address] [address] [facility] [address] ?? amoxicillin-clavulanate 875-125 MG tablet ?? artificial [...] PCP 7-10 days after discharge Contact information: [address] [place] [address] [address]. E[place] [id number] Follow up with provider . Why: follow [...] your spine due to your cervical stenosis. [facility] Otolaryngology (ENT) follow up instructions: [...] outpatient follow upin our clinic in the [facility] ([address] [place] [address]; [phone]). Ophthalmology (Eye) Instructions and Follow-up Information: Follow up with your regular pharmacometrician as scheduled on March 01, 2022. Feel free to call ouroffice if needed. Our contact information and location is listed below. Location: [place] [address]. ??? Our clinic is located on the [facility]. If you are driving, you should follow the blue signsto the blue elevators in the parking garage for the [facility]. You will proceed to the [facility] to register for your appointment and will be directed to our clinic, which isalso located on the same level. Telephone number: ??? During business hours (8am - 4pm, Saturday - Saturday, excluding holidays), you may call our clinicat . ??? If after these hours or on the weekend, you will need to call [facility] ([phone]), dial0 for the chief airline radio operator, and say you are an eye patient and need to speak with the eye doctor emergency services professional. They will contact one of the eye [...] counseling patient, working withsocial work and nursing. ING SUPERVISOR documented in this encounter Discharge Instructions * Discharge Instructions* Deon Perez MD - 02/15/2022 1:23 AM PRICING SUPERVISOR Images from the original note were not included. [facility] Otolaryngology (ENT) follow up instructions: For your facial fractures: Wound(s): Recommend applying bacitracin antibiotic ointment to laceration 3 times per day for 5 days and switch to vaseline Take antibiotic as prescribed Diet: please eat a soft diet to avoid displacing fractures Avoid nose blowing and closed mouth sneezing to avoid displacing fractures Follow up: Dr. Geroge Villafuerte in 1 week for follow up of fractures and suture removal Our schedulers will call to arrange this. You can also call to arrange for outpatient follow up in our clinic in the [facility] ([address] [place] [address]; [phone]). Ophthalmology (Eye) Instructions and Follow-up Information: Follow up with your regular pharmacometrician as scheduled on March 01, 2022. Feel free to call ouroffice if needed. Our contact information and location is listed below. Location: [address] [place] [address]. Our clinic is located on the [facility]. If you are driving, you should follow the blue signs to the blue elevators in the parking garage for the [facility]. You will proceed to the [facility] to register for your appointment and will be directed to our clinic, which is also located on the same level. Telephone number: During business hours (8am - 4pm, Saturday - Saturday, excluding holidays), you may call our clinic at . If after these hours or on the weekend, you will need to call [facility] ([phone]), dial [phone] for the chief airline radio operator, and say you are an eye patient and need to speak with the eye doctor emergency services professional. They will contact one of the eye doctors who will call you and address your concerns. Eye Drop Instructions: Apply erythromycin ointment to your stitches 4 times daily Activity Instructions: Do not rub your eyes No nose blowing for 2 weeks ING SUPERVISOR documented in this encounter Medications at Time [...] mouth once daily 02/20/2022 saline nasal spray (Macomb; Baby Bellona) 0.65 % nasal spray Rochester 1 (one) spray into each nostril as [...] patient arranged Home Health Care Accepting Agency: [facility] Phone Number for Home Health Care Agency: [phone] Date Services to begin: 02/21/2022 Comments: Discharge information faxed to [phone]. No further case management needs at this time. Meet Leblanc RN Case Manager [phone] ING SUPERVISOR * Ike Lisa, PT - 02/19/2022 1:35 PM CST [facility] Physical Medicine and Rehabilitation Physical Therapy Progress Note Patient: Kandace Cole [facility] Record Number: [id number] Date of : 1950 Age: [age] year [...] Following therapy session, patient left in bed. ING SUPERVISOR * Shoshana Tenorio CPhT - 02/19/2022 1:13 [...] outpatient pharmacy at [phone]. Shoshana Tenorio CPhT [facility] at [address] [place], [place] [address] Hours of Operation Saturday - Saturday: 8:00am to 6:00pm Saturday: 9:00am to 1:00pm Epic: [facility] *Ensure the patient and clinic's nearby ZIP codes box is unchecked* ING SUPERVISOR * Meet Quiroga RN - 02/19/2022 10:56 [...] 1039 by Meet Quiroga RN Outcome: Progressing ING SUPERVISOR * Meet Quiroga RN - 02/19/2022 10:39 [...] safe completion of daily activities Outcome: Progressing ING SUPERVISOR * Tyson Amado RN - 02/19/2022 8:01 AM CST This junior copywriterincident response analyst attempted x 2 to reach Team Med3 regarding the cortisol med that was administered last night but no one from Team Med 3 picked up the call. ING SUPERVISOR * Tyson Amado RN - 02/19/2022 2:20 [...] safe completion of daily activities Outcome: Progressing ING SUPERVISOR * Victoria Cormier RN - 02/18/2022 4:04 PM CST Problem: Fall Risk Goal: Fall risk and fall related injury risk are minimized (interventions related to the fall risk can be found in the flowsheet documentation) Outcome: Progressing ING SUPERVISOR * Meet Flores PA-C - 02/18/2022 8:22 AM CST Hospitalist Daily Progress Note Name: Kandace Cole Age: [age] year old Room: 785/190k Date Admitted: 02/14/2022 Hospital Course: Kandace Cole [...] Feel free to text page me through Extole Date of service: 02/18/2022 Attending Physician: Abeba Will DO ING SUPERVISOR * Tyson Amado RN - 02/18/2022 1:31 [...] safe completion of daily activities Outcome: Progressing ING SUPERVISOR * Victoria Cormier RN - 02/17/2022 4:36 [...] safe completion of daily activities Outcome: Progressing ING SUPERVISOR * Meet Flores PA-C - 02/17/2022 2:03 PM CST Hospitalist Daily Progress Note Name: Kandace Cole Age: [age] year old [facility] Date Admitted: 02/14/2022 Hospital Course: Kandace Cole [...] Feel free to text page me through Extole Date of service: 02/17/2022 Attending Physician: Abeba Will DO ING SUPERVISOR * Saira Soto MD - 02/17/2022 7:58 AM CST [facility] Daily Progress Note Kandace Cole, 72 year old, female : 1950 CSN: [id number] Primary Care Physician: Karrie Tompkins MD - [...] results for input(s): INR in the last 68059 hours. Physical Exam General: Awake, cooperative, in [...] to schedule/confirm appointment, contact information listed below. [facility] Orthopedic Surgery office contact information: [facility] at [address], First Floor [place], [place] [id number] [facility] [address] [place] [address], [place] [address] [facility] [address] [place] [address], [address] [place] [address] Saira Soto MD 02/17/2022 7:58 AM ING SUPERVISOR * Tyson Amado RN - 02/17/2022 12:15 [...] safe completion of daily activities Outcome: Progressing ING SUPERVISOR * Tyson Amado RN - 02/16/2022 9:25 PM CST Pt.was asking if she can be prescribed Bydureon, an anti-diabetic medication, at home. She stated she received a dose of Bydureon here and she feels it was very effective in lowering her blood sugar.RN advised pt to discuss it with her primary team doctors but will also passed this info on to the team. ING SUPERVISOR * Pi, MD Renee - 02/16/2022 3:58 PM CST [facility] Ophthalmology Consult Progress Note Patient: Kandace Cole [...] she was in the parkinglot of the [facility] cancer center when she became dizzy and fell, landing on the asphalt. Reports that she has had issues with dizziness due to neck abnormalities, and reports frequent head turning in a test she was completing there which she believes led to her fall. She was evaluated in the [facility] ED and found to have fractures of [...] She has an upcoming appointment with her pharmacometrician on 03/01/22 who is following her for [...] eyebrow laceration which [facility]. No retrobulbar hemorrhage. No proptosis, mostly [...] in the macula OU - Follows with pharmacometrician in [place] regularly, has appt 03/01/22 ?? T2DM without [...] PLAN: Has follow up scheduled with her pharmacometrician on 03/01/22, will provide our contact information in patient discharge instructions if needed. Thank you for this consult. If you have any questions, please feel free to reach out via Tricycle secure chat or page ophthalmology. This patient has been seen with Dr. Adames. Renee Torres MD Ophthalmology Resident 02/16/2022 5:13 PM ING SUPERVISOR Associated attestation - Cesar Adames MD - 02/18/2022 8:19 PM PRICING SUPERVISOR I have reviewed the resident note, the [...] home to help withlocomotion. Patient transferred from [facility] for further evaluation of facial bone fractures [...] patient's preference is to stay within the [facility] Network and its affiliates.: Yes Verify Family Support (name and phone): Extended Emergency Contact Information Primary Emergency Contact: BARBARA ICSNEROS Mobile Relation: Brother Secondary Emergency Contact: JanuaryBarbara Address: BROTHER Relation: Other Patient or sales representative education courses requests care coordination reach out to family [...] true Food Bank Resources Provided: Patient refused Control Panel Builder Referral: No If patient requires HHC at discharge, he/she requests: Patient agreeable to speak with [facility] Will continue to follow. For any questions or needs please contact: Market Garden Worker Name/Phone number: Meet Leblanc RN Case Manager [phone] ING SUPERVISOR * Camilla Trevino, PT - 02/16/2022 8:50 AM CST [facility] Physical Medicine and Rehabilitation Physical Therapy Initial Evaluation Note Patient: Kandace Cole [facility] Record Number: [id number] Date of : 1950 Age: [age] year [...] closed fractures of facial bone, initial encounter ([facility]) Past Medical History: Diagnosis Date [...] Patient's activity tolerance: fair TREATMENT/INTERVENTIONS: evaluation Modified [place]: EDUCATION: While performing PT, Patient was instructed [...] and with minimal assist and appropriate AD Halfway Goal(s): Patient to discharge to appropriate next [...] alarm on, with call light within reach. ING SUPERVISOR * Jurgen Rivera, OT - 02/16/2022 8:50 AM CST [facility] Physical Medicine and Rehabilitation Occupational Therapy Initial Evaluation Note Patient: Kandace Cole [facility] Record Number: [id number] Date of : 1950 Age: [age] year [...] closed fractures of facial bone, initial encounter ([facility]) Past Medical History: Diagnosis Date [...] Support Activities of Daily Living Feeding: Complete [place] (to drink from cup while seated in [...] will demonstrate good understanding of safety education Halfway Goal(s): Patient to discharge to appropriate next [...] call light within reach, with RNVictoria aware. ING SUPERVISOR * Meet Flores PA-C - 02/16/2022 7:35 [...] Feel free to text page me through Extole Date of service: 02/16/2022 Attending Physician: Abeba Will DO ING SUPERVISOR * Pan Oneil MD - 02/16/2022 6:28 AM CST [facility] Daily Progress Note Kandace Cole, 72 year old, female : 1950 CSN: [id number] Primary Care Physician: No primary care provider [...] results for input(s): INR in the last 65978 hours. General: Awake, cooperative, in no acute distress. CV: Regular rate. Pulm: No audible wheezing, no use of accessory muscles Abd: soft, nontender, nondistended Musculoskeletal: ?? Neck: - C-collar/Chippewa J: absent - Wounds: n/a - Tenderness [...] concerns Pan Oneil MD 02/16/2022 6:29 AM ING SUPERVISOR * Tyson Amado RN - 02/16/2022 2:07 AM CST Problem: Fall Risk Goal: Fall risk and fall related injury risk are minimized (interventions related to the fall risk can be found in the flowsheet documentation) Outcome: Progressing ING SUPERVISOR * Meet Flores PA-C - 02/15/2022 9:32 AM CST Hospitalist Daily Progress Note Name: Kandace Cole Age: [age] year old [facility] Date Admitted: 02/14/2022 Hospital Course: Kandace Cole [...] Feel free to text page me through Extole Date of service: 02/15/2022 Attending Physician: Abeba Will DO ING SUPERVISOR documented in this encounter H&P Notes * Dagoberto Ordoñez MD - 02/15/2022 3:56 AM CST Images from the original note were not included. Name: Kandace Cole Admit Date and Time: 02/14/2022 10:07 PM Chief Complaint: Transferred from [facility] for [place] and of the [place] allergy consultation in context of facial bone [...] g/dL 3.4 Recent Labs Component Name 02/14/22 7449 TROPONINI 0.027 ECG: My personal interpretation of [...] closed fractures of facial bone, initial encounter ([facility]) Plan -admit to medicine floor [...] - Has follow up scheduled with her pharmacometrician on 03/01/22 - outpatient follow-up with ENT [...] accordingly. Dagoberto Ordoñez MD 02/15/2022 3:57 AM ING SUPERVISOR documented in this encounter Consult Notes * Angelina Rabago - 02/16/2022 4:52 PM CSTAssociated Order(s): IP CONSULT TO TRIAGE CLINICIAN PT/OT are recommending SNF at d/c. The patient refused but is agreeable to [facility]. Patient reports that she lives with her grandson that is able to help her at d/c. SW updated CM and primary team via Tricycle chat. Angelina Allenan, JOB TRAINER 02/16/[phone] ING SUPERVISOR * Pan Oneil MD - 02/15/2022 5:27 PM CST [facility] Consultation Note Kandace Cole, 72 year old, female : 1950 CSN: [id number] Primary Care Physician: No primary care provider on file. Chief Complaint Chief Complaint Patient presents with ??? Fall BIBEMS transfer from [place], fall today with zygomatic fracture, -loc, - thinners. Denies vision changes ??? Facial Fracture Admission Date/Time: 02/14/2022 10:07 PM Today's Date/Time: 02/15/2022 5:27 PM Time at Bedside: 4:30pm HPI Consulting Service: ED [facility] consulted for evaluation/management of: history of cervical stenosis 02/15 status post fall. Kandace Cole is a 72 year old female who as transfer from [facility] after fall on . CT facialbones at [...] tablet 200 mg ??? saline nasal spray (Macomb; Baby Bellona) 0.65 % nasal spray 1 spray Review of Systems A 12 point review of systems was performed and was negative except for: what was mentioned in the HPI Physical Exam General: Awake, cooperative, in no acute distress. CV: Regular rate. Pulm: No audible wheezing, no use of accessory muscles Abd: soft, nontender, nondistended Musculoskeletal: Neck: - C-collar/Chippewa J: absent - Wounds: n/a - Tenderness [...] 02/15/2022 5:27 PM Follow up Contact Information: [facility] Orthopedic Surgery office contact information: [facility] at [address], [place] [address], Second [place], [place] [id number] [address] [place] [address] Visit our website at [email or web address] for information about our practice and an interactive health encyclopedia. Please visit [email or web address] to access your health record, ask questions, request medication refills, and request appointments for non-urgent needs after you have configured your [employer] account. If you do not currently have access, please contact one of our staff members or call [phone]. For after hour emergencies, please call and press 0 for the chief airline radio operator in order to page the orthopedic resident emergency services professional. ING SUPERVISOR Associated attestation - Deon Taylor MD - 02/16/2022 8:16 AM PRICING SUPERVISOR I have seen and evaluated the patient and agree with the resident's assessment and plan as stated above. I have independently reviewed all imaging studies. 72F with signs and symptoms of potential myelopathy. Patient reports she had an MRI done at [place] prior to transfer. Will attempt to obtain MRI to review. Otherwise will need follow up and likely elective cervical decompression and fusion. Deon Taylor MD * Makenzie Cisneros DO - 02/15/2022 12:45 AM CST Images from the original note were not included. [facility] Ophthalmology Consult Note 02/15/2022 at 1:21 AM Patient: Kandace Cole Age: [age] year old Date of : 1950 Date of Admission: 02/14/2022 Chief Complaint Patient presents with ??? Fall BIBEMS transfer from [place], fall today with zygomatic fracture, -loc, - thinners. Denies vision changes ??? Facial Fracture HPI: Kandace Cole is a 72 year old female with a history of T2DM, CKD, fibromyalgia, and Ferrell's esophagus who presents s/p ground level fall which occurred on 02/14/22. States she was in the parking lot of the [facility] cancer center when she became dizzy and fell, landing on the asphalt. Reports that she has had issues with dizziness due to neck abnormalities, and reports frequent head turning in a test she was completing there which she believes led to her fall. She was evaluated in the [facility] ED and found to have fractures of [...] She has an upcoming appointment with her pharmacometrician on 03/01/22 who is following her for [...] Additional Notes CT facial bones 02/14/22 at [facility] personally reviewed. There is a fracture of [...] Vitreous Syneresis, no Bibi's sign Syneresis, no [place]'s sign Fundus Exam Right Left Disc Cupping [...] eyebrow laceration which was repaired at the [facility]. No retrobulbar hemorrhage. No proptosis, mostly [...] possible subclinical edema OD - Follows with pharmacometrician in [place] regularly, has appt 03/01/22 T2DM without retinopathy [...] - Has follow up scheduled with her pharmacometrician on 03/01/22, will provide our contact informationin patient discharge instructions if needed. Makenzie Cisneros, Ophthalmology 02/15/2022 1:21 AM ING SUPERVISOR Associated attestation - eCsar Adames MD - 02/18/2022 8:17 PM PRICING SUPERVISOR I have reviewed the resident note, the [...] consultation for facial fractures. Patient presented to [facility] earlier in the evening after a fall. [...] CO2, BUN, CREATININE, GLUCOSE, CALCIUM in thelast 42508 hours. Recent Imaging/Studies: CT facial bones personally [...] up in our clinic in the [facility] Medicine ([address] [place] [address]; [phone]). ?? Please page ENT with questions/concerns. Deon Perez MD Otolaryngology - Head and Neck Surgery 02/15/2022 ING SUPERVISOR Associated attestation - Brandyn Alfaro MD - 02/15/2022 12:09 PM PRICING SUPERVISOR Attending Physician Supervisory Note I personally interviewed [...] safe to transfer care at this time. ING SUPERVISOR * Que Mercer RN - 02/15/2022 1:24 PM CST Notified Med 3 team of positive orthostatic BP ING SUPERVISOR * Cadence Veliz RN - 02/15/2022 11:46 AM CST Pt returns from ECHO, ENT team at bedside at this time. No s/s acute distress noted. ING SUPERVISOR * Cadence Veliz RN - 02/15/2022 10:17 AM CST Pt BP noted to be 85 45 with a map of 63. 500mL NS bolus ordered ING SUPERVISOR * Tere Thompson RN - 02/15/2022 4:30 AM CST Pt resting comfortably on ED stretcher with equal and bilateral chest rise and fall. VSS. Denies needs at this time ING SUPERVISOR * Unruly Witt MD - 02/15/2022 3:17 AM CST [facility] Emergency Department Clinical Course Patient Kandace [...] workup. Unruly Witt MD Emergency Medicine, PGY3 ING SUPERVISOR * Tere Thompson RN - 02/15/2022 2:00 AM CST [place] placed on pt ING SUPERVISOR * Tere Thompson RN - 02/15/2022 12:15 AM CST Pt resting comfortably in ED stretcher with equal and bilateral chest rise and fall. Denies needs at this time. VSS. ING SUPERVISOR * Justo Sparrow MD - 02/15/2022 12:06 [...] a 72 year old female??currently in the [facility] ED. Per [facility] care team, the [...] closed fractures of facial bone, initial encounter ([facility]) Disposition: Admission Please see resident [...] personal performance and is accurate and complete. ING SUPERVISOR * Tere Thompson RN - 02/14/2022 10:19 PM CST Pt resting comfortably in ED stretcher with equal and bilateral chest rise and fall. VSS. A& Ox4. Cold wash rag placed over pts eyes due to head pain. MDs going into see pt regarding injuries andpain. ING SUPERVISOR * Missy Ríos PA-C - 02/14/2022 10:07 PM CST Bed: AC17 Expected date: Expected time: Means of arrival: Comments: [place] ING SUPERVISOR documented in this encounter Plan of Treatment Upcoming Encounters Date Type Department Care Team (Late st Contact Info) Description 06/02/2024 1:45 PM PRICING SUPERVISOR Office Visit [facility] - Orthopedics [address] [place] [address], [place] [id number] Deon Taylor MD [address] [place] [id number] documented as of this encounter Procedures Procedure Name Priority Date/Time Associated Diagnosis Comments CORTISOL BLOOD AM Timed 02/19/2022 5:3 6 AM PRICING SUPERVISOR CORTISOL BLOOD AM Timed 02/19/2022 5:3 5 AM PRICING SUPERVISOR BASIC METABOLIC PANEL (CALCIUM TOTAL) AM Draw 02/19/2022 4:29 AM PRICING SUPERVISOR CORTISOL BLOOD AM Timed 02/19/2022 4:2 9 AM PRICING SUPERVISOR BASIC METABOLIC PANEL (CALCIUM TOTAL) Routine 02/18/2022 12:18 PM PRICING SUPERVISOR BASIC METABOLIC PANEL (CALCIUM TOTAL) AM Draw 02/18/2022 6:58 AM PRICING SUPERVISOR SODIUM URINE RANDOM Routine 02/17/2022 2 :08 PM PRICING SUPERVISOR OSMOLALITY URINE Routine 02/17/2022 2:08 PM PRICING SUPERVISOR CBC W/O DIFFERENTIAL AM Draw 02/17/2022 6:12 AM PRICING SUPERVISOR Syncope and collapse BASIC METABOLIC PANEL (CALCIUM TOTAL) AM Draw 02/17/2022 6:12 AM PRICING SUPERVISOR Syncope and collapse MRI CERVICAL SPINE WO CONTRAST Routine 02/16/2022 7:19 PM PRICING SUPERVISOR Degeneration of cervical intervertebral disc TSH REFLEX FREE T4 Routine 02/16/2022 7: 57 AM PRICING SUPERVISOR Syncope and collapse HEMOGLOBIN A1C Routine 02/16/2022 7:57 AM PRICING SUPERVISOR DM (diabetes mellitus) type II, controlled, with peripheral vascular disorder (HCC) CBC W/O DIFFERENTIAL AM Draw 02/16/2022 7:57 AM PRICING SUPERVISOR Syncope and collapse RENAL FUNCTION PANEL Routine 02/16/2022 7:57 AM PRICING SUPERVISOR Syncope and collapse MAGNESIUM BLOOD Routine 02/16/2022 7:57 AM PRICING SUPERVISOR Syncope and collapse GLUCOSE - POINT OF CARE Routine 02/16/2022 6:57 AM PRICING SUPERVISOR GLUCOSE - POINT OF CARE Routine 02/16/2022 1:[address] CERVICAL SPINE WO CONTRAST Routine 02/15/2022 10:41 PM PRICING SUPERVISOR Multiple closed fractures of facial bone, initial encounter (HCC) GLUCOSE - POINT OF CARE Routine 02/15/2022 8:42 PM PRICING SUPERVISOR GLUCOSE - POINT OF CARE Routine 02/15/2022 6:52 PM PRICING SUPERVISOR SARS-COV-2 (COVID-19)+INFLU A+B PCR RAPID STAT 02/15/2022 3:07 PM PRICING SUPERVISOR Trauma VAS CAROTID DUPLEX BILATERAL Routine 02/15/2022 1:56 PM PRICING SUPERVISOR Syncope and collapse GLUCOSE - POINT OF CARE Routine 02/15/2022 12:00 PM PRICING SUPERVISOR CARDIAC EKG ORDER 02/15/2022 11: 30 AM PRICING SUPERVISOR ECHO COMPLETE Routine 02/15/2022 11:27 AM PRICING SUPERVISOR Syncope and collapse URINALYSIS REFLEX TO MICROSCOPIC NO CULTURE STAT 02/15/2022 3:35 AM PRICING SUPERVISOR EKG 12-LEAD Routine 02/15/2022 12:55 AM PRICING SUPERVISOR Syncope and collapse TSH REFLEX FREE T4 STAT 02/14/2022 11 :55 PM PRICING SUPERVISOR TROPONIN I STAT 02/14/2022 11:55 PM PRICING SUPERVISOR CBC W AUTO DIFFERENTIAL STAT 02/14/2022 11:55 PM PRICING SUPERVISOR COMPREHENSIVE METABOLIC PANEL STAT 02/14/2022 11:55 PM PRICING SUPERVISOR XR CHEST 1VW PORTABLE STAT 02/14/2022 11:25 PM PRICING SUPERVISOR Syncope and collapse documented in this encounter Results * CORTISOL BLOOD AM (02/19/2022 5:36 AM PRICING SUPERVISOR) [facility] Cortisol AM 5.4 3.7 - 19.4 ug/dL 02/19/2022 6:54 AM PRICING SUPERVISOR [facility] Blood BLOOD SPECIMEN / Unknown Lab Venipuncture / Unknown 02/19/2022 5:36 AM PRICING SUPERVISOR 02/19/2022 6:06 AM PRICING SUPERVISOR Narrative [facility] - 02/19/2022 6:54 AM PRICING SUPERVISOR Normal cortisol levels are generally highest in the morning hours and lowest from late evening through the surgical appliance fitter 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 ??The PM measurements of cortisol run approximately one-half to one-third of the AM values. Meet Flores PA-C LAB - CHEMISTRY ORDERABLES Performing Organization Address [facility] de Phone Number [address] [address], [facility] [phone] * CORTISOL BLOOD AM (02/19/2022 5:35 AM [facility]) Cortisol AM 5.8 3.7 - 19.4 ug/dL 02/19/2022 6:27 AM [facility] Blood BLOOD SPECIMEN / Unknown Lab Venipuncture / Unknown 02/19/2022 5:35 AM PRICING SUPERVISOR 02/19/2022 5:35 AM [facility] Narrative [facility] - 02/19/2022 6:27 AM PRICING SUPERVISOR Normal cortisol levels are generally highest in the morning hours and lowest from late evening through the surgical appliance fitter 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 ??The PM measurements of cortisol run approximately one-half to one-third of the AM values. Meet Flores PA-C LAB - CHEMISTRY ORDERABLES Performing Organization Address [facility] de Phone Number [address] [address], [facility] [phone] * (ABNORMAL) BASIC METABOLIC PANEL (CALCIUM TOTAL) (02/19/2022 4:29 AM [facility]) BUN 18 7 - 26 mg/dL 02/19/2022 5:08 AM [facility] Creatinine 1.58(H) 0.56 - 0.96 mg/dL 02/19/2022 5:08 AM [facility] Sodium 132(L) 136 - 145 mmol/L 02/19/2022 5:08 AM [facility] Potassium 4.5 3.5 - 4.5 mmol/L 02/19/2022 5:08 AM [facility] Chloride 104 98 - 107 mmol/L 02/19/2022 5:08 AM [facility] CO2 22 22 - 29 mmol/L 02/19/2022 5:08 AM [facility] Glucose 83 70 - 115 mg/dL 02/19/2022 5:08 AM [facility] Calcium 9.1 8.4 - 10.2 mg/dL 02/19/2022 5:08 AM [facility] Anion Gap 11 - 02/19/2022 5:08 AM [facility] BUN/Creatinine Ratio 11 - 02/19/2022 5:08 AM [facility] Osmolality Calculated 275 270 - 300 mOsm/kg 02/19/2022 5:08 AM [facility] eGFR by CKD-EPI 35(L) >=90 mL/min/1.7 3 m2 02/19/2022 5:08 AM [facility] Blood BLOOD SPECIMEN / Unknown Lab Venipuncture / Unknown 02/19/2022 4:29 AM PRICING SUPERVISOR 02/19/2022 4:39 AM PRICING SUPERVISOR Meet Flores PA-C LAB - CHEMISTRY ORDERABLES [address] [address], [facility] [phone] * CORTISOL BLOOD AM (02/19/2022 4:29 AM PRICING SUPERVISOR) Cortisol AM 6.9 3.7 - 19.4 ug/dL 02/19/2022 5:23 AM [facility] Blood BLOOD SPECIMEN / Unknown Lab Venipuncture / Unknown 02/19/2022 4:29 AM PRICING SUPERVISOR 02/19/2022 4:38 AM PRICING SUPERVISOR Narrative [facility] - 02/19/2022 5:23 AM PRICING SUPERVISOR Normal cortisol levels are generally highest in the morning hours and lowest from late evening through the surgical appliance fitter 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 ??The PM measurements of cortisol run approximately one-half to one-third of the AM values. Meet C Mark PA-C LAB - CHEMISTRY ORDERABLES [facility] [address] [place] [address], [place] [phone] * (ABNORMAL) BASIC METABOLIC PANEL (CALCIUM TOTAL) (02/18/2022 12:18 PM [facility]) BUN 19 7 - 26 mg/dL 02/18/2022 1:05 PM [facility] Creatinine 1.55(H) 0.56 - 0.96 mg/dL 02/18/2022 1:05 PM [facility] Sodium 129(L) 136 - 145 mmol/L 02/18/2022 1:05 PM [facility] Potassium 4.8(H) 3.5 - 4.5 mmol/L 02/18/2022 1:05 PM [facility] Chloride 98 98 - 107 mmol/L 02/18/2022 1:05 PM [facility] CO2 21(L) 22 - 29 mmol/L 02/18/2022 1:05 PM [facility] Glucose 137(H) 70 - 115 mg/dL 02/18/2022 1:05 PM [facility] Calcium 9.5 8.4 - 10.2 mg/dL 02/18/2022 1:05 PM [facility] Anion Gap 15 8 - 18 02/18/2022 1:05 PM [facility] BUN/Creatinine Ratio 12 7 - 23 02/18/2022 1:05 PM [facility] Osmolality Calculated 272 270 - 300 mOsm/kg 02/18/2022 1:05 PM [facility] eGFR by CKD-EPI 35(L) >=90 mL/min/1.7 3 m2 02/18/2022 1:05 PM [facility] Blood BLOOD SPECIMEN / Unknown Lab Venipuncture / Unknown 02/18/2022 12:18 PM PRICING SUPERVISOR 02/18/2022 12:34 PM [facility] Meet Flores PA-C LAB - CHEMISTRY ORDERABLES [facility] [address] [place] [address], [place] [phone] * (ABNORMAL) BASIC METABOLIC PANEL (CALCIUM TOTAL) (02/18/2022 6:58 AM PRICING SUPERVISOR) BUN 19 7 - 26 mg/dL 02/18/2022 8:07 AM [facility] Creatinine 1.60(H) 0.56 - 0.96 mg/dL 02/18/2022 8:07 AM [facility] Sodium 126(L) 136 - 145 mmol/L 02/18/2022 8:07 AM [facility] Potassium 4.5 3.5 - 4.5 mmol/L 02/18/2022 8:07 AM [facility] Chloride 95(L) 98 - 107 mmol/L 02/18/2022 8:07 AM [facility] CO2 23 22 - 29 mmol/L 02/18/2022 8:07 AM [facility] Glucose 81 70 - 115 mg/dL 02/18/2022 8:07 AM [facility] Calcium 9.2 8.4 - 10.2 mg/dL 02/18/2022 8:07 AM [facility] Anion Gap 13 8 - 18 02/18/2022 8:07 AM [facility] BUN/Creatinine Ratio 12 7 - 23 02/18/2022 8:07 AM [facility] Osmolality Calculated 263(L) 270 - 300 mOsm/kg 02/18/2022 8:07 AM [facility] eGFR by CKD-EPI 34(L) >=90 mL/min/1.7 3 m2 02/18/2022 8:07 AM [facility] Blood BLOOD SPECIMEN / Unknown Lab Venipuncture / Unknown 02/18/2022 6:58 AM PRICING SUPERVISOR 02/18/2022 7:41 AM [facility] Meet Flores PA-C LAB - CHEMISTRY ORDERABLES [facility] [address] [place] [address], [facility] [phone] * OSMOLALITY URINE (02/17/2022 2:08 PM PRICING SUPERVISOR) Osmolality Urine 234 50 - 1,200 mOsm/kg 02/17/2022 3:23 PM [facility] Urine URINE SPECIMEN OBTAINED BY CLEAN CATCH PROCEDURE / Unknown Collection / Unknown 02/17/2022 2:08 PM PRICING SUPERVISOR 02/17/2022 2:13 PM PRICING SUPERVISOR Narrative [facility] - 02/17/2022 3:23 PM PRICING SUPERVISOR QRY Meet Flores PA-C LAB - URINE CHEM ISTRY ORDERABLES Performing Organization Address City/[facility]/ZIP Co de Phone Number [address] [address], [facility] [phone] * SODIUM URINE RANDOM (02/17/2022 2:08 PM PRICING SUPERVISOR) Sodium Urine 55 Not Established mmol/L 02/17/2022 2:30 PM [facility] Urine URINE SPECIMEN OBTAINED BY CLEAN CATCH PROCEDURE / Unknown Collection / Unknown 02/17/2022 2:08 PM PRICING SUPERVISOR 02/17/2022 2:13 PM PRICING SUPERVISOR Meet Flores PA-C LAB - URINE CHEM ISTRY ORDERABLES Performing Organization Address [facility]/ZIP Co de Phone Number [address] [address], [place] [phone] * (ABNORMAL) CBC W/O DIFFERENTIAL (02/17/2022 6:12 AM PRICING SUPERVISOR) WBC 5.8 3.5 - 10.5 10? 3 /uL 02/17/2022 6:53 AM [facility] RBC 3.18(L) 3.80 - 5.20 10? 6 /uL 02/17/2022 6:53 AM [facility] Hemoglobin 9.6(L) 12.0 - 15.6 g/dL 02/17/2022 6:53 AM [facility] Hematocrit 28.3(L) 35.0 - 45.0 % 02/17/2022 6:53 AM [facility] MCV 89.0 80.7 - 98.3 fL 02/17/2022 6:53 AM [facility] MCH 30.2 26.7 - 34.0 pg 02/17/2022 6:53 AM [facility] MCHC 33.9 30.8 - 35.9 g/dL 02/17/2022 6:53 AM [facility] RDW-SD 41.6 36.0 - 50.0 fL 02/17/2022 6:53 AM [facility] RDW-CV 12.7 11.2 - 14.8 % 02/17/2022 6:53 AM [facility] Platelet Count 259 150 - 400 10? 3 /uL 02/17/2022 6:53 AM [facility] MPV 9.9 9.4 - 12.9 fL 02/17/2022 6:53 AM [facility] nRBC Absolute 0.00 0 10? 3 /uL 02/17/2022 6:53 AM [facility] nRBC Auto 0.0 0 /100 WBC 02/17/2022 6:53 AM [facility] Blood BLOOD SPECIMEN / Unknown Lab Venipuncture / Unknown 02/17/2022 6:12 AM PRICING SUPERVISOR 02/17/2022 6:48 AM [facility] Meet Flores PA-C LAB - HEMATOLOGY ORDERABLES Performing Organization Address City/State/[facility] Co de Phone Number [facility] [address] [place] [address], [facility] [phone] * (ABNORMAL) BASIC METABOLIC PANEL (CALCIUM TOTAL) (02/17/2022 6:12 AM [facility]) BUN 21 7 - 26 mg/dL 02/17/2022 7:13 AM [facility] Creatinine 1.64(H) 0.56 - 0.96 mg/dL 02/17/2022 7:13 AM [facility] Sodium 128(L) 136 - 145 mmol/L 02/17/2022 7:13 AM [facility] Potassium 4.8(H) 3.5 - 4.5 mmol/L 02/17/2022 7:13 AM [facility] Chloride 97(L) 98 - 107 mmol/L 02/17/2022 7:13 AM [facility] CO2 22 22 - 29 mmol/L 02/17/2022 7:13 AM [facility] Glucose 119(H) 70 - 115 mg/dL 02/17/2022 7:13 AM [facility] Calcium 9.3 8.4 - 10.2 mg/dL 02/17/2022 7:13 AM [facility] Anion Gap 14 8 - 18 02/17/2022 7:13 AM [facility] BUN/Creatinine Ratio 13 7 - 23 02/17/2022 7:13 AM [facility] Osmolality Calculated 270 270 - 300 mOsm/kg 02/17/2022 7:13 AM [facility] eGFR by CKD-EPI 33(L) >=90 mL/min/1.7 3 m2 02/17/2022 7:13 AM [facility] Blood BLOOD SPECIMEN / Unknown Lab Venipuncture / Unknown 02/17/2022 6:12 AM PRICING SUPERVISOR 02/17/2022 6:48 AM PRICING SUPERVISOR Meet Flores PA-C LAB - CHEMISTRY ORDERABLES [facility] [address] [place] [address], [facility] [phone] * MRI CERVICAL SPINE WO CONTRAST (02/16/2022 7:19 PM PRICING SUPERVISOR) Anatomical Region Laterality Modality Pelvis Magnetic Resonan ce 02/18/2022 1:46 PM PRICING SUPERVISOR Impressions 02/18/2022 2:03 PM PRICING SUPERVISOR IMPRESSION: 1. Degenerative changes of the spine [...] 02/18/2022 2:03 PM Narrative 02/18/2022 2:03 PM PRICING SUPERVISOR PROCEDURE: ??MRI CERVICAL SPINE WO CONTRAST, DATE/TIME OF EXAM: ??02/16/2022 7:20 PM, LOCATION ??[facility] INDICATION: M50.30: Degeneration of cervical [...] CONTRAST, DATE/TIME OF EXAM:02/16/2022 7:20 PM, LOCATION [facility] INDICATION: M50.30: Degeneration of cervical [...] (ABNORMAL) CBC W/O DIFFERENTIAL (02/16/2022 7:57 AM PRICING SUPERVISOR) [facility] WBC 5.7 3.5 - 10.5 10? 3 /uL 02/16/2022 8:26 AM PRICING SUPERVISOR [facility] RBC 3.51(L) 3.80 - 5.20 10? 6 /uL 02/16/2022 8:26 AM [facility] Hemoglobin 10.5(L) 12.0 - 15.6 g/dL 02/16/2022 8:26 AM [facility] Hematocrit 31.8(L) 35.0 - 45.0 % 02/16/2022 8:26 AM [facility] MCV 90.6 80.7 - 98.3 fL 02/16/2022 8:26 AM [facility] MCH 29.9 26.7 - 34.0 pg 02/16/2022 8:26 AM [facility] MCHC 33.0 30.8 - 35.9 g/dL 02/16/2022 8:26 AM [facility] RDW-SD 41.6 36.0 - 50.0 fL 02/16/2022 8:26 AM [facility] RDW-CV 12.8 11.2 - 14.8 % 02/16/2022 8:26 AM [facility] Platelet Count 300 150 - 400 10? 3 /uL 02/16/2022 8:26 AM [facility] MPV 9.8 9.4 - 12.9 fL 02/16/2022 8:26 AM [facility] nRBC Absolute 0.00 0 10? 3 /uL 02/16/2022 8:26 AM [facility] nRBC Auto 0.0 0 /100 WBC 02/16/2022 8:26 AM [facility] Blood BLOOD SPECIMEN / Unknown Lab Venipuncture / Unknown 02/16/2022 7:57 AM [facility] 02/16/2022 8:15 AM [facility] Meet Flores PA-C LAB - HEMATOLOGY ORDERABLES [facility] [address] [place] [address], [facility] [phone] * HEMOGLOBIN A1C (02/16/2022 7:57 AM [facility]) Hemoglobin A1c 5.1 <=5.6 % 02/16/2022 11:17 AM PRICING SUPERVISOR [facility] Estimated Average Glucose 100 mg/dL 02/16/2022 11:17 AM PRICING SUPERVISOR [facility] Comment: HbA1c Interpretation: Normal : < [...] Lab Venipuncture / Unknown 02/16/2022 7:57 AM PRICING SUPERVISOR 02/16/2022 8:14 AM PRICING SUPERVISOR Meet Flores PA-C LAB - CHEMISTRY ORDERABLES Performing Organization Address City/[facility]/ZIP Co de Phone Number [address] [address], [facility] [phone] * TSH REFLEX FREE T4 (02/16/2022 7:57 AM PRICING SUPERVISOR) TSH 1.522 0.350 - 4.940 uIU/mL 02/16/2022 9:01 AM [facility] Blood BLOOD SPECIMEN / Unknown Lab Venipuncture / Unknown 02/16/2022 7:57 AM PRICING SUPERVISOR 02/16/2022 8:15 AM PRICING SUPERVISOR Dagoberto Ordoñez MD LAB - CHEMISTRY ORDERABLES [address] [address], [facility] [phone] * MAGNESIUM BLOOD (02/16/2022 7:57 AM PRICING SUPERVISOR) Magnesium 1.8 1.6 - 2.6 mg/dL 02/16/2022 8:43 AM PRICING SUPERVISOR [facility] Blood BLOOD SPECIMEN / Unknown Lab Venipuncture / Unknown 02/16/2022 7:57 AM [facility] 02/16/2022 8:15 AM PRICING SUPERVISOR Dagoberto Ordoñez MD LAB - CHEMISTRY ORDERABLES [facility] [address] [place] [address], [facility] [phone] * (ABNORMAL) RENAL FUNCTION PANEL (02/16/2022 7:57 AM [facility]) BUN 27(H) 7 - 26 mg/dL 02/16/2022 8:43 AM [facility] Creatinine 1.77(H) 0.56 - 0.96 mg/dL 02/16/2022 8:43 AM [facility] Sodium 131(L) 136 - 145 mmol/L 02/16/2022 8:43 AM [facility] Potassium 5.0(H) 3.5 - 4.5 mmol/L 02/16/2022 8:43 AM [facility] Chloride 100 98 - 107 mmol/L 02/16/2022 8:43 AM [facility] CO2 24 22 - 29 mmol/L 02/16/2022 8:43 AM [facility] Glucose 88 70 - 115 mg/dL 02/16/2022 8:43 AM [facility] Albumin 3.6 3.4 - 5.0 g/dL 02/16/2022 8:43 AM [facility] Calcium 9.6 8.4 - 10.2 mg/dL 02/16/2022 8:43 AM [facility] Phosphorus 3.9 2.9 - 5.1 mg/dL 02/16/2022 8:43 AM [facility] Anion Gap 12 8 - 18 02/16/2022 8:43 AM [facility] BUN/Creatinine Ratio 15 7 - 23 02/16/2022 8:43 AM [facility] Osmolality Calculated 277 270 - 300 mOsm/kg 02/16/2022 8:43 AM [facility] eGFR by CKD-EPI 30(L) >=90 mL/min/1.7 3 m2 02/16/2022 8:43 AM [facility] Blood BLOOD SPECIMEN / Unknown Lab Venipuncture / Unknown 02/16/2022 7:57 AM PRICING SUPERVISOR 02/16/2022 8:15 AM PRICING SUPERVISOR Dagoberto Ordoñez MD LAB - CHEMISTRY ORDERABLES [facility] [address] [place] [address], [place] [phone] * GLUCOSE - POINT OF CARE (02/16/2022 6:57 AM PRICING SUPERVISOR) Glucose WB/POC 112 70 - 115 mg/dL 02/16/2022 6:59 AM PRICING SUPERVISOR [facility] Specimen Type Cap Fingerstick 2021 6:59 AM PRICING SUPERVISOR [facility] Blood BLOOD SPECIMEN / Unknown 02/16/2022 6:57 AM PRICING SUPERVISOR 02/16/2022 6:59 AM PRICING SUPERVISOR Marii Light MD LAB - POINT OF CAR E ORDERABLES [facility] [address] [place] [address], [place] [phone] * GLUCOSE - POINT OF CARE (02/16/2022 1:53 AM PRICING SUPERVISOR) Glucose WB/POC 80 70 - 115 mg/dL 02/16/2022 1:58 AM PRICING SUPERVISOR [facility] Specimen Type Cap Fingerstick 2021 1:58 AM PRICING SUPERVISOR [facility] Blood BLOOD SPECIMEN / Unknown 02/16/2022 1:53 AM PRICING SUPERVISOR 02/16/2022 1:57 AM PRICING SUPERVISOR Marii Light MD LAB - POINT OF CAR E ORDERABLES [facility] [address] [place] [phone], [place] [phone] * CT CERVICAL SPINE WO CONTRAST (02/15/2022 10:41 PM PRICING SUPERVISOR) Anatomical Region Laterality Modality Spine Computed Tomogra phy 02/16/2022 2:09 AM PRICING SUPERVISOR Impressions 02/16/2022 2:29 AM PRICING SUPERVISOR IMPRESSION: 1.No acute fracture or traumatic malalignment [...] 02/16/2022 2:29 AM Narrative 02/16/2022 2:29 AM PRICING SUPERVISOR PROCEDURE: ??CT CERVICAL SPINE WO CONTRAST, DATE/TIME OF EXAM: ??02/15/2022 10:41 PM, LOCATION ??[facility] INDICATION: S02.92XA: Multiple closed fractures of facial bone, initial encounter ([facility]) ADDITIONAL CLINICAL INFORMATION: Ordering Provider [...] CONTRAST, DATE/TIME OF EXAM:02/15/2022 10:41 PM, LOCATION [facility] INDICATION: S02.92XA: Multiple closed fractures of facial bone, initial encounter ([facility]) ADDITIONAL CLINICAL INFORMATION: Ordering Provider [...] left C3-C5 facets, right C3-C4 facets, and [id number] processes. DISCS: Osseous fusion of the C3-C5 [...] in moderate spinal canal stenosis at the C5-H4suaqv and mild spinal canal stenosis at the C3-C4, C6-C7, and C7-T1 levels. 3.Severe bilateral neuroforaminal narrowing at the C5-C6 level. > Interpreting Provider: Barbara Wallace DR on 02/16/2022 2:29 AM Meet Flores PA-C CT ORDERABLES * GLUCOSE - POINT OF CARE (02/15/2022 8:42 PM PRICING SUPERVISOR) Glucose WB/POC 92 70 - 115 mg/dL 02/15/2022 8:47 PM PRICING SUPERVISOR [facility] Specimen Type Cap Fingerstick 2021 8:47 PM PRICING SUPERVISOR [facility] Blood BLOOD SPECIMEN / Unknown 02/15/2022 8:42 PM PRICING SUPERVISOR 02/15/2022 8:47 PM PRICING SUPERVISOR Marii Light MD LAB - POINT OF CAR E ORDERABLES [facility] [address] [place] [phone], [facility] [phone] * (ABNORMAL) GLUCOSE - POINT OF CARE (02/15/2022 6:52 PM PRICING SUPERVISOR) Glucose WB/POC 134(H) 70 - 115 mg/dL 02/15/2022 6:57 PM PRICING SUPERVISOR [facility] Specimen Type Arterial 02/15/2022 6:57 PM PRICING SUPERVISOR [facility] Blood BLOOD SPECIMEN / Unknown 02/15/2022 6:52 PM PRICING SUPERVISOR 02/15/2022 6:57 PM PRICING SUPERVISOR Marii Light MD LAB - POINT OF CAR E ORDERABLES [facility] [address] [place] [address], [facility] [phone] * SARS-COV-2 (COVID-19)+INFLU A+B PCR RAPID (02/15/2022 3:07 PM PRICING SUPERVISOR) COVID-19 PCR Not detected Not detected 02/16/20 3:59 PM PRICING SUPERVISOR [facility] Influenza A Rapid WENDI Not Detected Not Detected 02/15/2022 3:59 PM PRICING SUPERVISOR [facility] Influenza B WENDI Rapid Not Detected Not Detected 02/15/2022 3:59 PM PRICING SUPERVISOR [facility] Microbiology SPECIMEN FROM NASOPHARYNGEAL STRUCTURE / Unknown Collection / Unknown 02/15/2022 3:07 PM PRICING SUPERVISOR 02/15/2022 3:10 PM PRICING SUPERVISOR Narrative [facility] - 02/15/2022 3:59 PM PRICING SUPERVISOR Influenza assay performed by [employer]. [...] acid amplification assay performance was validated by [facility]. This test has been authorized by [...] - MICROBIOLOGY O RDERABLES Performing Organization Address [facility]/ZIP Co de Phone Number [address] [address], [facility] [phone] * VAS CAROTID DUPLEX BILATERAL (02/15/2022 1:56 PM PRICING SUPERVISOR) Anatomical Region Laterality Modality Neck Intravascular Ul trasound 02/15/2022 12:0 2 PM PRICING SUPERVISOR Narrative Procedure Note Adolph Pineda MD - 02/16/2022 Dagoberto Ordoñez MD VASCULAR LAB ORD ERABLES * GLUCOSE - POINT OF CARE (02/15/2022 12:00 PM PRICING SUPERVISOR) Glucose WB/POC 85 70 - 115 mg/dL 02/15/2022 12:08 PM PRICING SUPERVISOR [facility] Specimen Type Cap Fingerstick 2021 12:08 PM PRICING SUPERVISOR [facility] Blood BLOOD SPECIMEN / Unknown 02/15/2022 12:00 PM PRICING SUPERVISOR 02/15/2022 12:08 PM PRICING SUPERVISOR Abeba Will DO LAB - POINT OF CARE ORDERABLES Performing Organization Address [facility]/ZIP Co de Phone Number [address] [address], [facility] [phone] * CARDIAC EKG ORDER (02/15/2022 11:30 AM PRICING SUPERVISOR) Narrative 02/15/2022 11:30 AM PRICING SUPERVISOR Ordered by an unspecified provider. Scanned Document CARDIAC SERVICES ORD ERABLES * ECHO COMPLETE (02/15/2022 11:27 AM PRICING SUPERVISOR) Anatomical Region Laterality Modality Chest Echo 02/15/2022 10:2 8 AM PRICING SUPERVISOR Narrative Procedure Note Corey Flowers MD - 02/15/2022 Dagoberto Ordoñez MD ECHOCARDIOGRAPHY RADIANT * (ABNORMAL) URINALYSIS REFLEX TO MICROSCOPIC NO CULTURE (02/15/2022 3:35 AM PRICING SUPERVISOR) Color UA Straw Straw, Yellow 02/15/2022 3:47 AM [facility] Clarity UA Clear Clear 02/15/2022 3:47 AM [facility] Specific [place] UA 1.008 1.005 - 1.030 02/15/2022 3:47 AM [facility] pH UA 5.0 5.0 - 8.0 pH 02/15/2022 3:47 AM [facility] Protein UA Negative Negative 02/15/2022 3:47 AM [facility] Glucose UA Negative Negative 02/15/2022 3:47 AM [facility] Ketone UA Negative Negative 02/15/2022 3:47 AM [facility] Bilirubin UA Negative Negative 02/15/2022 3:47 AM [facility] Blood UA Negative Negative 02/15/2022 3:47 AM [facility] Nitrite UA Negative Negative 02/15/2022 3:47 AM [facility] Leukocyte Esterase 1+(A) Negative 02/15/2022 3:47 AM [facility] Urobilinogen UA Negative Negative mg/dL 02/15/2022 3:47 AM [facility] RBC UA 0-2 None Seen, 0-2, 3-5 /HPF 02/15/2022 3:47 AM [facility] WBC UA 0-5 None Seen, 0-5 /HPF 02/15/2022 3:47 AM [facility] Bacteria UA Trace(A) None /HPF 02/15/2022 3:47 AM [facility] Squamous Epithelial Cells UA 0-2 None Seen, 0-2, 3-5 /HPF 02/15/2022 3:47 AM [facility] Urine URINE SPECIMEN OBTAINED BY CLEAN CATCH PROCEDURE / Unknown Collection / Unknown 02/15/2022 3:35 AM PRICING SUPERVISOR 02/15/2022 3:37 AM [facility] - 02/15/2022 3:47 AM PRICING SUPERVISOR Justo Sparrow MD LAB - URINALYSIS ORD ERABLES Performing Organization Address [facility]/ZIP Co de Phone Number [facility] [address] [place] [address], [facility] [phone] * EKG 12-LEAD (02/15/2022 12:55 AM PRICING SUPERVISOR) Ventricular Rate 73 BPM [facility] MUSE Atrial Rate 73 BPM [facility] MUSE P-R Interval 152 ms [facility] MUSE QRS Duration ms 78 ms [facility] MUSE Q-T Interval ms 372 ms [facility] MUSE QTC Calculation (Bezet) 409 ms SL MUSE Calculated P Hernandez 35 degrees SL MUSE Calculated R Hernandez 34 degrees [facility] MUSE Calculated T Hernandez 60 degrees [facility] MUSE Interpretation EKG NORMAL SINUS RHYTHM NORMAL ECG NO PREVIOUS ECGS AVAILABLE Confirmed by MENDEL LUNA MD ([id number]) on 02/15/2022 9:57:52 AM [facility] 02/15/2022 12:5 5 AM PRICING SUPERVISOR 02/15/2022 9:57 AM PRICING SUPERVISOR Justo Sparrow MD ECG ORDERABLES Performing Organization Address [facility] Co de Phone Number [facility] * TROPONIN I (02/14/2022 11:55 PM PRICING SUPERVISOR) Pathologist [facility] Troponin I 0.027 <0.032 ng/mL 02/15/2022 12:31 AM PRICING SUPERVISOR [facility] Blood BLOOD SPECIMEN / Unknown Venipuncture / Unknown 02/14/2022 11:55 PM PRICING SUPERVISOR 02/14/2022 11:58 PM PRICING SUPERVISOR Justo Sparrow MD LAB - CHEMISTRY ORDE RABLES Performing Organization Address [facility]/ZIP Co de Phone Number [facility] [address] [place] [address], [place] [phone] * TSH REFLEX FREE T4 (02/14/2022 11:55 PM PRICING SUPERVISOR) Pathologist [facility] TSH 0.749 0.350 - 4.940 uIU/mL 02/15/2022 12:44 AM [facility] Blood BLOOD SPECIMEN / Unknown Venipuncture / Unknown 02/14/2022 11:55 PM PRICING SUPERVISOR 02/14/2022 11:58 PM PRICING SUPERVISOR Justo Sparrow MD LAB - CHEMISTRY CHELO QUIGLEY [facility] Organization Address City/State/ZIP Co de Phone Number [facility] [address] [place] [address], [facility] [phone] * (ABNORMAL) COMPREHENSIVE METABOLIC PANEL (02/14/2022 11:55 PM PRICING SUPERVISOR) BUN 33(H) 7 - 26 mg/dL 02/15/2022 12:27 AM [facility] Creatinine 1.74(H) 0.56 - 0.96 mg/dL 02/15/2022 12:27 AM [facility] Sodium 132(L) 136 - 145 mmol/L 02/15/2022 12:27 AM [facility] Potassium 5.1(H) 3.5 - 4.5 mmol/L 02/15/2022 12:27 AM [facility] Chloride 101 98 - 107 mmol/L 02/15/2022 12:27 AM [facility] CO2 22 22 - 29 mmol/L 02/15/2022 12:27 AM [facility] Glucose 95 70 - 115 mg/dL 02/15/2022 12:27 AM [facility] Calcium 9.1 8.4 - 10.2 mg/dL 02/15/2022 12:27 AM [facility] Protein Total 6.0 6.0 - 8.3 g/dL 02/15/2022 12:27 AM [facility] Albumin 3.4 3.4 - 5.0 g/dL 02/15/2022 12:27 AM [facility] Bilirubin Total 0.5 0.2 - 1.2 mg/dL 02/15/2022 12:27 AM [facility] Alkaline Phosphatase 58 40 - 150 U/L 02/15/2022 12:27 AM [facility] ALT 13 5 - 55 U/L 02/15/2022 12:27 AM [facility] AST 16 5 - 34 U/L 02/15/2022 12:27 AM [facility] Anion Gap 14 8 - 18 02/15/2022 12:27 AM [facility] BUN/Creatinine Ratio 19 7 - 23 02/15/2022 12:27 AM [facility] Osmolality Calculated 281 270 - 300 mOsm/kg 02/15/2022 12:27 AM [facility] Albumin/Globulin Ratio 1.3 1.1 - 2.3 02/15/2022 12:27 AM [facility] eGFR by CKD-EPI 31(L) >=90 mL/min/1.7 3 m2 02/15/2022 12:27 AM [facility] Blood BLOOD SPECIMEN / Unknown Venipuncture / Unknown 02/14/2022 11:55 PM PRICING SUPERVISOR 02/14/2022 11:58 PM PRICING SUPERVISOR Justo Sparrow MD LAB - CHEMISTRY CHELO QUIGLEY [facility] Organization Address City/State/ZIP Co de Phone Number [facility] [address] [place] [id number] [phone] * (ABNORMAL) CBC W AUTO DIFFERENTIAL (02/14/2022 11:55 PM PRICING SUPERVISOR) WBC 9.5 3.5 - 10.5 10? 3 /uL 02/15/2022 12:08 AM [facility] RBC 3.35(L) 3.80 - 5.20 10? 6 /uL 02/15/2022 12:08 AM [facility] Hemoglobin 9.9(L) 12.0 - 15.6 g/dL 02/15/2022 12:08 AM [facility] Hematocrit 30.1(L) 35.0 - 45.0 % 02/15/2022 12:08 AM [facility] MCV 89.9 80.7 - 98.3 fL 02/15/2022 12:08 AM [facility] MCH 29.6 26.7 - 34.0 pg 02/15/2022 12:08 AM [facility] MCHC 32.9 30.8 - 35.9 g/dL 02/15/2022 12:08 AM [facility] RDW-SD 41.4 36.0 - 50.0 fL 02/15/2022 12:08 AM [facility] RDW-CV 12.7 11.2 - 14.8 % 02/15/2022 12:08 AM [facility] Platelet Count 304 150 - 400 10? 3 /uL 02/15/2022 12:08 AM [facility] MPV 9.6 9.4 - 12.9 fL 02/15/2022 12:08 AM [facility] nRBC Absolute 0.00 0 10? 3 /uL 02/15/2022 12:08 AM [facility] nRBC Auto 0.0 0 /100 WBC 02/15/2022 12:08 AM [facility] Neutrophils % 72.8(H) 35.0 - 70.0 % 02/15/2022 12:08 AM [facility] Lymphocytes % 15.3(L) 20.0 - 43.0 % 02/15/2022 12:08 AM [facility] Monocytes % 8.9 5.0 - 13.0 % 02/15/2022 12:08 AM [facility] Eosinophils % 2.3 0.0 - 6.0 % 02/15/2022 12:08 AM [facility] Basophil % 0.3 0.0 - 2.0 % 02/15/2022 12:08 AM [facility] Neutrophils Absolute 6.91 1.60 - 7.00 10? 3 /uL 02/15/2022 12:08 AM [facility] Lymphocyte Absolute 1.45 1.10 - 3.90 10? 3 /uL 02/15/2022 12:08 AM [facility] Monocytes Absolute 0.85 0.26 - 1.07 10? 3 /uL 02/15/2022 12:08 AM [facility] Eosinophils Absolute 0.22 0.00 - 0.47 10? 3 /uL 02/15/2022 12:08 AM [facility] Basophils Absolute 0.03 0.00 - 0.08 10? 3 /uL 02/15/2022 12:08 AM [facility] Immature Granulocytes % 0.4 0.0 - 1.0 % 02/15/2022 12:08 AM PRICING SUPERVISOR [facility] Immature Granulocytes Absolute 0.04 02/15/2022 12:08 AM PRICING SUPERVISOR [facility] Blood BLOOD SPECIMEN / Unknown Venipuncture / Unknown 02/14/2022 11:55 PM PRICING SUPERVISOR 02/14/2022 11:58 PM PRICING SUPERVISOR Justo Sparrow MD LAB - HEMATOLOGY ORD ERABLES Performing Organization Address [facility]/State/ZIP Co de Phone Number [facility] [address] [place] [address], [facility] [phone] * XR CHEST 1VW PORTABLE (02/14/2022 11:25 PM PRICING SUPERVISOR) Anatomical Region Laterality Modality Chest Radiographic Vivian ging 02/14/2022 11:2 4 PM PRICING SUPERVISOR Narrative 02/15/2022 9:10 AM PRICING SUPERVISOR PROCEDURE: ??XR CHEST 1VW PORTABLE, DATE/TIME OF EXAM: ??02/14/2022 11:25 PM, LOCATION ??[facility] INDICATION: R55: Syncope and collapse [...] glenoid. > Dictated by Sushil Herrera MD (group president). I, Tony Hansen MD have personally reviewed and interpreted this examination/study. > Interpreting Provider: Tony Hansen MD on 02/15/2022 9:10 AM Procedure Note Tony Hansen MD - 02/15/2022 PROCEDURE: XR CHEST 1VW PORTABLE, DATE/TIME OF EXAM: 02/14/2022 11:25PM, LOCATION [facility] INDICATION: R55: Syncope and collapse [...] glenoid. > Dictated by Sushil Herrera MD (group president). I, Tony Hansen MD have personally [...] before administration. $ Given 02/15/2022 11:23 AM PRICING SUPERVISOR 10 mL $ Given 02/15/2022 11:09 AM PRICING SUPERVISOR 10 mL 0.9% NaCl injection 3 mL 3 mL, Intracatheter, EVERY 8 HOURS, First dose on Jeanette 02/15/22 at 0600, Until Discontinued, Flush peripheral IV catheter with 3 mL of normal saline every 8 hours. $ Given 02/19/2022 5:39 AM PRICING SUPERVISOR 3 mL $ Given 02/18/2022 10:24 PM PRICING SUPERVISOR 3 mL $ Given 02/18/2022 1:46 PM PRICING SUPERVISOR 3 mL 0.9% NaCl IV bolus 500 mL, at 967.74 mL/hr, Administer over 31 Minutes, ONCE, 1 dose, On Jeanette 02/15/22 at 1045 $ Bolus New Bag 02/15/2022 10:20 AM PRICING SUPERVISOR 500 mL 967.74 mL/hr acetaminophen (Tylenol) tablet [...] the MAR. $ Given 02/19/2022 8:36 AM PRICING SUPERVISOR 650 mg $ Given 02/17/2022 8:56 AM PRICING SUPERVISOR 650 mg $ Given 02/16/2022 10:57 PM PRICING SUPERVISOR 650 mg buPROPion XL 24hr (Wellbutrin-XL) tablet 150 mg 150 mg, Oral, DAILY, First dose on Jeanette 02/15/22 at 0900, Until Discontinued, Do not crush, chew, or cut in half. $ Given 02/19/2022 8:37 AM PRICING SUPERVISOR 150 mg $ Given 02/18/2022 8:59 AM PRICING SUPERVISOR 150 mg $ Given 02/17/2022 8:54 AM PRICING SUPERVISOR 150 mg calcitriol (Rocaltrol) capsule 0.25 mcg 0.25 mcg, Oral, EVERY MON, WED AND SAT, First dose on Sat02/16/22 at 1700, Until Discontinued $ Given 02/16/2022 4:04 PM PRICING SUPERVISOR 0.25 mcg citalopram (CeleXA) tablet 20 mg 20 mg, Oral, DAILY, First dose on Jeanette 02/15/22 at 0900, Until Discontinued $ Given 02/19/2022 8:37 AM PRICING SUPERVISOR 20 mg $ Given 02/18/2022 8:59 AM PRICING SUPERVISOR 20 mg $ Given 02/17/2022 8:54 AM PRICING SUPERVISOR 20 mg cosyntropin (Cortrosyn) injection 0.25 mg 0.25 mg, Intravenous, ONCE, 1 dose, On Sat02/19/22 at 0430, Do not administer until after baseline cortisol level has been drawn. IntraMUSCular injection reconstitute with 1 mL NS IntraVENous injection dilute in 2 to 5 mL of NS, inject over 2 min $ Given 02/19/2022 5:39 AM PRICING SUPERVISOR 0.25 mg dextrose 10 % IV bolus [...] laceration area $ Given 02/19/2022 1:46 PM PRICING SUPERVISOR $ Given 02/19/2022 8:42 AM PRICING SUPERVISOR $ Given 02/18/2022 8:20 PM PRICING SUPERVISOR escitalopram (Lexapro) tablet 20 mg 20 mg, Oral, DAILY, First dose on Sat02/15/22 at 0900, Until Discontinued $ Given 02/19/2022 8:38 AM PRICING SUPERVISOR 20 mg $ Given 02/18/2022 8:59 AM PRICING SUPERVISOR 20 mg $ Given 02/17/2022 8:54 AM PRICING SUPERVISOR 20 mg furosemide (Lasix) tablet 10 mg 10 mg, Oral, DAILY, First dose on Sat02/15/22 at 0900, Until Discontinued $ Given 02/19/2022 8:38 AM PRICING SUPERVISOR 10 mg $ Given 02/17/2022 8:54 AM PRICING SUPERVISOR 10 mg $ Given 02/15/2022 8:21 AM PRICING SUPERVISOR 10 mg heparin injection 5,000 Units 5,000 Units, Subcutaneous, 3 TIMES DAILY, First dose on Sat02/15/22 at 1400, Until Discontinued $ Given 02/19/2022 8:35 AM PRICING SUPERVISOR 5,000 Units Abd Right Lower Quadrant $ Given 02/18/2022 8:20 PM PRICING SUPERVISOR 5,000 Units A bd Left Lower Quadrant $ Given 02/18/2022 1:46 PM PRICING SUPERVISOR 5,000 Units R ight Arm latanoprost (Xalatan) 0.005 % ophthalmic solution 1 drop 1 drop, Each Eye, AT BEDTIME, First dose on Sat02/16/22 at 2100, Until Discontinued, Allow at least 5 minutes between administration of multiple ophthalmic products Once opened, store at room temperature $ Given 02/18/2022 8:20 PM PRICING SUPERVISOR 1 drop $ Given 02/17/2022 8:12 PM PRICING SUPERVISOR 1 drop $ Given 02/16/2022 11:55 PM PRICING SUPERVISOR 1 drop loratadine (Claritin) tablet 10 mg 10 mg, Oral, DAILY, First dose on Sat02/17/22 at 1130, Until Discontinued $ Given 02/19/2022 8:37 AM PRICING SUPERVISOR 10 mg $ Given 02/18/2022 8:59 AM PRICING SUPERVISOR 10 mg $ Given 02/17/2022 12:24 PM PRICING SUPERVISOR 10 mg ondansetron (disintegrating) (Zofran ODT) tablet [...] the MAR. $ Given 02/18/2022 11:43 PM PRICING SUPERVISOR 5 mg $ Given 02/18/2022 5:28 PM PRICING SUPERVISOR 5 mg $ Given 02/18/2022 1:48 PM PRICING SUPERVISOR 5 mg pantoprazole EC (Protonix) tablet 40 mg 40 mg, Oral, DAILY, First dose on Jeanette 02/15/22 at 1300, Until Discontinued, Do not crush, chew, or cut in half. $ Given 02/19/2022 8:38 AM PRICING SUPERVISOR 40 mg $ Given 02/18/2022 8:59 AM PRICING SUPERVISOR 40 mg $ Given 02/17/2022 8:54 AM PRICING SUPERVISOR 40 mg perflutren lipid microsphere (Definity) injection 0.5 mL 0.5 mL, Intravenous, INTRA-PROCEDURE MULTIPLE, 6 doses, Starting on Jeanette 02/15/22 at 1108, Until Sat02/19/22 at 1528, For Echo Procedure - Per Protocol Give slowly Shake well before using. $ Given 02/15/2022 11:12 AM PRICING SUPERVISOR 0.5 mL QUEtiapine (SEROquel) tablet 200 mg 200 mg, Oral, DAILY, First dose on Jeanette 02/15/22 at 0900, Until Discontinued $ Given 02/19/2022 8:37 AM PRICING SUPERVISOR 200 mg $ Given 02/18/2022 8:59 AM PRICING SUPERVISOR 200 mg $ Given 02/17/2022 8:54 AM PRICING SUPERVISOR 200 mg sodium chloride tablet 2 g 2 g, Oral, 3 TIMES DAILY WITH MEALS, First dose on Sat02/18/22 at 0900, Until Discontinued $ Given 02/19/2022 11:14 AM PRICING SUPERVISOR 2 g $ Given 02/19/2022 8:37 AM PRICING SUPERVISOR 2 g $ Given 02/18/2022 5:28 PM PRICING SUPERVISOR 2 g documented in this encounter Active and Recently Administered Medications Times are shown in PRICING SUPERVISOR. Scheduled Medication Order 02/17/2022 02/18/2022 02/19/2022 0.9% [...] Cormier RN) 0859 ($ Given - Provider: Vcitoria Cormier RN) 0838 ($ Given - Provider: Meet uQiroga, SANTI) furosemide (Lasix) tablet 10 mg 10 [...] swallow. 165 (See Alternative - Provider: Victoria Comrier RN) oxyCODONE (immediate release) (Roxicodone) tablet 5 [...] Provider: Tyson Amado, SANTI) saline nasal spray ([place]; Baby Bellona) 0.65 % nasal spray 1 spray 1 [...] Under Investigation 02/15/2022 02/15/2022 02/15/2022 3:59 PM PRICING SUPERVISOR documented as of this encounter
--- OUTSIDE RECORDS SUMMARY | 2024-04-12 16:32 | XMS_ITS | Encounter Summary ---
Author Organization [facility] Address [facility] [place] [address] [place] [address] Care Team Providers Care Orthotist Prosthetist Name Role Phone Md Generic Willa HANEY Primary Care Provider Unavailable Miah Haney MD Primary Care Provider Unavailable Md Generic Willa HANEY Primary Care Provider Unavailable Encounter Details Date Type Department Care Team (Late st Contact Info) Description 10/21/2008 Abstract [facility] [place] [address] Adi Vieira MD [address] [place] [phone] Social History Tobacco Use Types Packs/Day Years [...] on filedocumented in this encounter Care Teams Orthotist Prosthetist Relationship Specialty Start Date End Date Miah Haney MD PCP - General 12/31/12 Miah Haney MD PCP - General 10/13/12 Miah Haney MD PCP - General 09/15/10 documented as of this encounter
--- OUTSIDE RECORDS SUMMARY | 2024-04-12 16:32 | XMS_ITS | Encounter Summary ---
Author Organization [facility] Address [address] [place] [address] Care Team Providers Care Cooling Machine Operator Name Role Phone Karrie Phillips MD Primary Care Provider [phone] Encounter Details Date Type Department Care Team (Late st Contact Info) Description 03/12/2022 Orders Only [facility] - Orthopedics [address] [place] [address], [place] [address] Deon Taylor MD [address] [place] [address] [phone] Neck pain Social History Tobacco Use Types [...] Info) Description 06/02/2024 1:45 PM DIRECTOR OF CORPORATE REAL ESTATE Office Visit [facility] - Orthopedics [address] [place] [address], [facility] [place] [address] Deon Taylor MD [address] [place] [phone] documented as of this encounter Results * XR CERVICAL SPINE 2 OR 3VW (03/13/2022 1:02 PM DIRECTOR OF CORPORATE REAL ESTATE) Anatomical Region Laterality Modality Spine Radiographic Vivian ging 03/13/2022 1:13 PM DIRECTOR OF CORPORATE REAL ESTATE Impressions 03/13/2022 1:20 PM DIRECTOR OF CORPORATE REAL ESTATE IMPRESSION: There is straightening of the cervical [...] PM Narrative 03/13/2022 1:20 PM DIRECTOR OF CORPORATE REAL ESTATE PROCEDURE: ??XR CERVICAL SPINE 2 OR 3VW, DATE/TIME OF EXAM: ??03/13/2022 1:03 PM, LOCATION ??[facility] INDICATION: M54.2: Neck pain ADDITIONAL CLINICAL INFORMATION: Ordering Provider Reason For Exam: ??neck pain COMPARISON: CT dated 02/15/2022. Procedure Note Alejo Ahuja MD - 03/13/2022 PROCEDURE: XR CERVICAL SPINE 2 OR 3VW, DATE/TIME OF EXAM: 21:03 PM, LOCATION [facility] INDICATION: M54.2: Neck pain ADDITIONAL CLINICAL [...] Cervicalgia documented in this encounter Care Teams Cooling Machine Operator Relationship Specialty Start Date End Date Karrie Phillips MD [address] [place] [address] PCP - General 03/13/22 documented as of this encounter
--- OUTSIDE RECORDS SUMMARY | 2024-04-12 16:32 | XMS_ITS | Encounter Summary ---
Author Organization [facility] Address [address] [facility] [place] [address] Care Team Providers Care Computer Systems Design Analyst Name Role Phone Karrie Phillips MD Primary Care Provider [phone] Encounter Details Date Type Department Care Team (Late st Contact Info) Description 03/21/2022 Orders Only [facility] - [facility] [address] [facility], [place] [address] Anabell Avendaño, SANTI Cervical myelopathy [...] Contact Info) Description 06/02/2024 1:45 PM AIR DEFENSE SPECIALIST Office Visit [facility] [address] [place] [address], [place] [address] Deon Taylor MD [address] [place] [address] documented as of this encounter Visit Diagnoses Diagnosis Cervical myelopathy (HCC)- Primary Cervical spondylosis with myelopathy documented in this encounter Care Teams Computer Systems Design Analyst Relationship Specialty Start Date End Date Karrie Phillips MD [address] [place] [address] PCP - General 03/13/22 documented as of this encounter
--- OUTSIDE RECORDS SUMMARY | 2024-04-12 16:32 | XMS_ITS | Encounter Summary ---
Author Organization [facility] Address [facility] [facility] [place] [address] [place] [address] Care Team Providers Care Senior Quality Assurance Analyst Name Role Phone Md Generic Willa HANEY Primary Care Provider Unavailable Miah Haney MD Primary Care Provider Unavailable Md Generic Willa HANEY Primary Care Provider Unavailable Encounter Details Date Type Department Care Team (Late st Contact Info) Description 10/15/2008 Abstract [facility] [place] [address] Adi Vieira MD [address] [place] [address] Social History Tobacco Use Types Packs/Day Years [...] on filedocumented in this encounter Care Teams Senior Quality Assurance Analyst Relationship Specialty Start Date End Date Miah Haney MD PCP - General 12/31/12 Miah Haney MD PCP - General 10/13/12 Miah Haney MD PCP - General 09/15/10 documented as of this encounter
--- OUTSIDE RECORDS SUMMARY | 2024-04-12 16:32 | XMS_ITS | Encounter Summary ---
Author Organization [facility] Address [facility] [place] [address] [place] [address] Care Team Providers Care Practice Performance Manager Name Role Phone Miah Montiel MD Primary Care Provider Unavailable Miah Montiel MD Primary Care Provider Unavailable Encounter Details Date Type Department Care Team (Late st Contact Info) Description 10/13/2012 Abstract [facility] [place] [address] Adi Vieira MD [address] [place] [address] Social History Tobacco Use Types Packs/Day Years [...] examination documented in this encounter Care Teams Practice Performance Manager Relationship Specialty Start Date End Date Miah Montiel MD PCP - General 12/31/12 Miah Montiel MD PCP - General 10/13/12 documented as of this encounter
--- OUTSIDE RECORDS SUMMARY | 2024-04-12 16:32 | XMS_ITS | Encounter Summary ---
Author Organization [employer] Address [address] [place] [address] Care Team Providers Care Internal Affairs Commander Name Role Phone Karrie Phillips MD Primary Care Provider [phone] Reason for Visit * Auth/Cert (Routine) Specialty Diagnoses / Procedures Referred By Everardo fried Referred To Contact Diagnoses Cervical myelopathy (HCC) cervical myelopathy Procedures FUSION POSTERIOR CERVICAL (PCF) Referral ID Status Reason Start Date Expiration Date Visits Re quested Visits Authorized [id number] 1 1 Encounter Details Date Type Department Care Team (Late st Contact Info) Description 06/04/2022 7:30 AM LEAD HANDLER - 06/04/2022 11:42 AM LEAD HANDLER Surgery [facility] [address] [place] [address] Deon Taylor MD [address] [place] [address] C5-C6 laminectomy, C4-T2 posterior instrumented spinal fusion Surgery Details Date/Time Status Location OR Service Patient Class Case Class Case Type Trauma Case? 06/04/2022 7:30 AM Posted [facility] OR OR Orthopedics Parks Recreation Coordinator Admit Surgical Elective > 5 days Panel 1 Procedure LRB Anes Op Region Wound Class Comments C5-C6 laminectomy, C4-T2 pos terior instrumented spinal fusion N/A General Clean Surgeon Surgeon Role Service Panel Deon Taylor MD Primary Orthopedics 1 Case Notes LATEX ALLERGY Special Needs PRONE, C-ARM CERVICAL ATTACHMENT JULIETH DONALD NEURO MONITORING POWER:4mm jose, 4mm cutter, 2mm cutter DEPUY: DELILAH MCGINNIS [phone]; EMERSON CUNNINGHAM [phone]--reps notified mk 06/01 documented in this encounter [...] and heating? Not hard at all 06/04/2022 [facility] - Occupational [...] Comments Blood Pressure 112/62 06/04/2022 6:30 AM LEAD HANDLER Pulse 86 06/04/2022 6:30 AM LEAD HANDLER Temperature 36.7 ??C (98 ??F) 06/04/2022 6:22 AM LEAD HANDLER Respiratory Rate 19 06/04/2022 6:30 AM LEAD HANDLER Oxygen Saturation - - Inhaled Oxygen Concentration - - Weight 60.5 kg (133 lb 6.4 oz) 06/04/2022 5:52 A M LEAD HANDLER Height 154.9 cm (5' 1 ) 06/04/2022 5:52 AM LEAD HANDLER Body Mass Index 25.21 06/04/2022 5:52 AM LEAD HANDLER documented in this encounter Functional Status Functional [...] Physician Discharge Summary Patient ID: Kandace Cole [id number] 72 year old 1950 Admit date: 06/04/2022 [...] who are recommending rehab. Discharged to [facility]. ?? Consults: Orthopedics Significant Diagnostic [...] 0.65 % nasal spray Commonly known as: [place]; Baby [place] 1 (one) spray into each nostril [...] sure to ask the pharmacy when you moss picker your prescription. You may also call your primary provider to ask if you should be taking your medication. FOLLOW-UP: It is important that you follow-up with all appointments that have been made on your behalf. These appointments include: Future Appointments Monday June 20, 2022 8:45 AM Appointment with Deon Taylor at [facility] ([phone]) [address] [facility] [phone] If a follow-up with your primary care provider has not been scheduled, please schedule an appointment to follow-up on your hospitalization. If there is a conflict, please call the clinic ahead of time and reschedule the appointment. Regards, Internal Medicine Department [facility] [address] [place] [address] Orthopedic Spine Surgery Patient Discharge Instructions [...] please call 911. Follow up Contact Information: [facility] Orthopedic Surgery office contact information: [facility] ([facility]) [address] [facility], 1[address] [place] [address] [facility] [address] [facility], [address] [place] [address] Visit our website at [email or web address] for information about our practice and an interactive health encyclopedia. Please visit [employer] to access your health record, ask questions, request medication refills, and request appointments for non-urgent needs after you have configured your [employer] account. If you do not currently have access, please contact one of our staff members or call [phone]. For after hour emergencies, please call [phone] and press 0 for the oil well service operator in order to page the orthopedic resident vocational nurse. This list of medications is preliminary and [...] TABLET BY MOUTH DAILY saline nasal spray ([place]; Baby [place]) 0.65 % nasal spray [place] 1 (one) spray into each nostril [...] Tammi Perez MD, 06/08/2022 at 3:12 PM HANDLER Associated attestation - Ama Gonzalez MD - 06/08/2022 7:17 PM LEAD HANDLER I have verified the documentation and discharge [...] Tammi Perez MD - 06/07/2022 11:07 AM LEAD HANDLER A Note From Your Doctors: Dear Kandace [...] 0.65 % nasal spray Commonly known as: [place]; Baby [place] 1 (one) spray into each nostril [...] sure to ask the pharmacy when you moss picker your prescription. You may also call your primary provider to ask if you should be taking your medication. FOLLOW-UP: It is important that you follow-up with all appointments that have been made on your behalf. These appointments include: Future Appointments Monday June 20, 2022 8:45 AM Appointment with Deon Taylor at [facility] 1L ([phone]) [address] [place] [phone] If a follow-up with your primary care provider has not been scheduled, please schedule an appointment to follow-up on your hospitalization. If there is a conflict, please call the clinic ahead of time and reschedule the appointment. Regards, Internal Medicine Department [facility] [address] [place] [address] Orthopedic Spine Surgery Patient Discharge Instructions [...] incision covered until your follow up appointment. --Sutures/[place]: to be removed at your next clinic [...] an appointment. For medical emergencies, please call [phone]. Follow up Contact Information: [facility] Orthopedic Surgery office contact information: [facility] ([facility]) [address] [place] [address], 1[address] [place] [address] [facility] [address] [facility], [address] [place] [address] Visit our website at [email or web address] for information about our practice and an interactive health encyclopedia. Please visit [employer] to access your health record, ask questions, request medication refills, and request appointments for non-urgent needs after you have configured your [employer] account. If you do not currently have access, please contact one of our staff members or call [phone]. For after hour emergencies, please call [phone] and press 0 for the oil well service operator in order to page the orthopedic resident vocational nurse. HANDLER documented in this encounter Medications at Time [...] mouth every evening 06/08/2022 saline nasal spray ([place]; Baby [place]) 0.65 % nasal spray [place] 1 (one) spray into each nostril [...] to allow for safe mobility Outcome: Progressing HANDLER * Makenzie Choi RN - 06/08/2022 3:57 [...] 1420 by Makenzie Choi RN Outcome: Progressing HANDLER * Charissa Murphy - 06/08/2022 2:52 PM CST Facility Transfer Note Level of Care: Actual level of care at discharge: Acute Rehab Facility Facility Name: (include name of person confirming admission): Actual discharge provider: [facility] Made Aware of Special Needs (if applicable): n/a RN Call Report to:[phone] Fax D/C Orders to:[phone] MD to MD: Dr Baldwin [phone] Transportation (company and number): [employer] [facility]: [phone] Certificate of Medical Necessity rationale: weakness, impaired mobility, unsteady gait, spinal precautions Date/time of transfer: 06-08-22 @ Accepting MD and contact #: Denny Completed and Signed [id number] (if applicable): n/a Family/Other Notified of Transfer (name/phone): patient Authorization Skilled Care: Authorization for Transportation: Verified Qualifying Stay(Skilled Only): NOT APPLICABLE Comments: Name/Phone number: Charissa Murphy [phone] HANDLER * Joanna Easley PT - 06/08/2022 2:24 PM CST [facility] Physical Therapy Progress Note Patient: K[facility] Record Number: [id number] Date of : 1950 Age: [age] year [...] as Tolerated Spine Precautions: Yes Spine Precautions: [place] OBJECTIVE: At start of therapy session, patient [...] ambulate??75??feet with minimal assist??and appropriate AD ?? Supervisor [employer] Goal(s): Patient to discharge to appropriate next [...] light within reach, with Makenzie HANCOCK aware. HANDLER * Makenzie Choi RN - 06/08/2022 2:20 [...] to allow for safe mobility Outcome: Progressing HANDLER * Annemarie Collazo COTA - 06/08/2022 2:04 PM CST [facility] Occupational Therapy Progress Note Patient: Kandace Cole [facility] Record Number: [id number] Date of : 1950 Age: [age] year [...] with therapy cues visible on white board. HANDLER * Cammy Aleman RN - 06/08/2022 12:51 [...] Emergency Contact Information Primary Emergency Contact: BARBARA CINSEROS Mobile Relation: Brother Secondary Emergency Contact: Barbara Cisneros Address: [place], [place] Relation: Other Transportation at Discharge: Family [...] get more.: Never true Medication affordability concerns: [place]: Cammy Aleman RN Case airport duty manager: [phone] 06/08/2022 HANDLER * Tammi Perez MD - 06/08/2022 10:20 AM CST Internal Medicine Progress Note Patient: Kandace Cole (:1950) Room: [facility] Date of admission: 06/04/2022 No of [...] results for input(s): MG in the last 66909 hours. Phosphorus: Recent Labs Component Name 06/08/2221206/07/2222306/06/22306 PHOS 2.5* 2.7* 3.2 Coagulation: No results for input(s): PT, INR, PTT in the last 67908 hours. Micro Microbiology Results (Displays last 21 [...] ? Tammi Perez MD PGY-3 Internal Medicine HANDLER Associated attestation - Ama Gonzalez MD - 06/08/2022 10:42 PM LEAD HANDLER I have verified the documentation of the [...] Easley PT - 06/08/2022 10:15 AM CST [facility] Department of Physical Medicine & Rehabilitation Progress Note Patient: Kandace Cole Med Record Number: [id number] Date of : 1950 Age: [age] year old 06/08/22 1015 Missed Visit Missed Visit Other (Comment) (Patient just back to bed. Requested therapy at later time.) HANDLER * Charissa Murphy - 06/08/2022 9:55 AM CST Saturday Summary Note Discharge Level of Care: Rehab Discharge Destination:[facility] Phone Number: (Tracey peña) Fax Number: Insurance Auth:auth will need to be done as patient has [facility] Anticipated Mode of Transportation: to be determined (EMS) or person vehicle Contacts (Name, relationship, phone #): Anticipated DC Date: patient is ready for disposition Pending Needs: review from rehab for acceptance and authorization will need to be done. Comments: Liaison is aware of this referral and will review. SW was called by [employer] [phone] saying to call them as two rehab's have put in request ([facility] and [facility]) DASHAWN informed that [facility] has been the chosen provider and never spoke to anyone at [facility]. Service Operator with [facility] informed DASHAWN that it's currently under review. DASHAWN provided contact information for collections representative to call back once decision has been made. Charissa Murphy Phone [phone] 06/08/2022 HANDLER * Heather Sethi - 06/08/2022 8:52 AM CST Internal Medicine Progress Note Patient: Kandace Cole (:1950) Room: [facility]/ Date of admission: 06/04/2022 No [...] results for input(s): MG in the last 82003 hours. Phosphorus: Recent Labs Component Name 06/08/2221206/07/2222306/06/22 030 PHOS 2.5* 2.7* 3.2 Coagulation: No results for input(s): PT, INR, PTT in the last 30200 hours. Micro Microbiology Results (Displays last 21 [...] is HDS. Heather Sethi MS3 Internal Medicine HANDLER Associated attestation - Ama Gonzalez MD - 06/08/2022 7:11 PM LEAD HANDLER I have verified the documentation of the medical student. This note is for educational purposes only. Please refer to the resident's note for complete note for details and my assessment. Ama Gonzalez MD 06/08/2022 * Joey Dickens MD - 06/08/2022 5:50 AM CST [facility] Orthopedic Spine Surgery Daily Progress Note Kandace Cole, 72 year old, female : 1950 CSN: [id number] Primary Care Physician: Karrie Phillips MD, MD [...] for input(s): PT, INR in the last 26111 hours. No results for input(s): PTT in the last 17408 hours. Cultures No results found for this or any previous visit (from the past 248 hour(s)). Physical Exam General: Awake, alert, follows commands, in no acute distress Neck: - C-collar/[place] J: Present - Tenderness to palpation: Deferred [...] concerns Joey Dickens MD 06/08/2022 5:50 AM HANDLER * Vivian Boo RN - 06/07/2022 10:43 [...] at normal rate and depth. Outcome: Progressing HANDLER * Ama Gonzalez MD - 06/07/2022 10:38 [...] % IV bolus 12.5 g Intravenous PRN aPdma Morales MD Or ??? dextrose 10 % [...] Tammi Perez MD ??? saline nasal spray ([place]; Baby [place]) 0.65 % nasal spray 2 spray 2 [...] input(s): PT, INR, APTT in the last 40536 hours. Recent Labs Component Name 06/07/22 0224 [...] and Palliative Medicine Attending 06/07/2022 10:39 PM HANDLER * Makenzie Choi RN - 06/07/2022 6:28 [...] to allow for safe mobility Outcome: Progressing HANDLER * Daniella Le, PT - 06/07/2022 2:30 PM CST [facility] Physical Therapy Progress Note Patient: [facility] Record Number: [id number] Date of : 1950 Age: [age] year [...] (in C-collar) Spine Precautions: Yes Spine Precautions: [place] OBJECTIVE: At start of therapy session, patient [...] feet with minimal assist and appropriate AD Supervisor [employer] Goal(s): Patient to discharge to appropriate next [...] on , with call light within reach. HANDLER * Sherrie Boyer, OT - 06/07/2022 1:48 PM CST [facility] Occupational Therapy Progress Note Patient: Kandace Cole Med Record Number: [id number] Date of : 1950 Age: [age] year [...] to chair with stand by assist ?? Supervisor [employer] Goal(s): Patient to discharge to appropriate next [...] call light within reach, with RNMigdalia aware. HANDLER * Charissa Murphy - 06/07/2022 10:43 AM CST DASHAWN rec'd call from [facility] Keith) to say Cadence will be here to assess patient. If patient isin agreement to going, auth will be initiated. SW to wait for liaison to come and patient to make determination on rehab choice. ISELA Hensley Care Coordination Quality Intern HANDLER * Heather Sethi - 06/07/2022 10:12 AM CST Internal Medicine Progress Note Patient: Kandace Cole (:1950) Room: [facility] Date of admission: 06/04/2022 No of [...] results for input(s): MG in the last 84272 hours. Phosphorus: Recent Labs Component Name 06/07/22 0224 06/06/22 0307 02/16/22 0757 PHOS 2.7* 3.2 3.9 Coagulation: No results for input(s): PT, INR, PTT in the last 31499 hours. Micro Microbiology Results (Displays last 21 [...] is HDS. Heather Sethi MS3 Internal Medicine HANDLER Associated attestation - Ama Gonzalez MD - 06/07/2022 10:37 PM LEAD HANDLER I have verified the documentation of the medical student. This note is for educational purposes only. Please refer to the resident's note for complete note for details and my assessment. Ama Gonzalez MD 06/07/2022 * Joey Dickens MD - 06/07/2022 5:31 AM CST [facility] Orthopedic Spine Surgery Daily Progress Note Kandaec Cole, 72 year old, female : [address] [facility]: [id number] Primary Care Physician: Karrie Phillips MD, MD [...] for input(s): PT, INR in the last 46981 hours. No results for input(s): PTT in the last 73314 hours. Cultures No results found for this or any previous visit (from the past 248 hour(s)). Physical Exam General: Awake, alert, follows commands, in no acute distress Neck: - C-collar/[place] J: Present - Tenderness to palpation: Deferred [...] concerns Joey Dickens MD 06/07/2022 5:31 AM HANDLER Associated attestation - Deon Taylor MD - 06/07/2022 4:44 PM LEAD HANDLER I have seen and evaluated the patient [...] found in the flowsheet documentation) Outcome: Progressing HANDLER * Annemarie Collazo COTA - 06/06/2022 3:59 PM CST [facility] Department of Physical Medicine & Rehabilitation Progress Note Patient: [facility] Record Number: [id number] Date of : 1950 Age: [age] year old 06/06/22 1017 Missed Visit Missed Visit RN Cancel (Pt receiveing blood) HANDLER * Heather Sethi - 06/06/2022 1:56 PM CST Internal Medicine Progress Note Patient: Kandace Cole (:1950) Room: [facility] Date of admission: 06/04/2022 No of [...] results for input(s): MG in the last 80311 hours. Phosphorus: Recent Labs Component Name 06/06/2230602/16/227 PHOS 3.2 3.9 Coagulation: No results for input(s): PT, INR, PTT in the last 91964 hours. Micro Microbiology Results (Displays last 21 [...] is HDS. Heather Sethi MS3 Internal Medicine HANDLER Associated attestation - Ama Gonzalez MD - 06/06/2022 8:42 PM LEAD HANDLER I have verified the documentation of the medical student. This note is for educational purposes only. Please refer to the resident's note for complete note for details and my assessment. Ama Gonzalez MD 06/06/2022 * Joanna Easley, PT - 06/06/2022 10:00 AM CST [facility] Department of Physical Medicine & Rehabilitation Progress Note Patient: Kandace Cole Med Record Number: [id number] Date of : 1950 Age: [age] year old 06/06/22 1000 Missed Visit Missed Visit RN Cancel (Patient receiving blood) HANDLER * Tammi Perez MD - 06/06/2022 9:01 AM CST Internal Medicine Progress Note Patient: Kandace Cole (:1950) Room: [facility] Date of admission: 06/04/2022 No of [...] results for input(s): MG in the last 94013 hours. Phosphorus: Recent Labs Component Name 06/06/2230602/16/22756 PHOS 3.2 3.9 Coagulation: No results for input(s): PT, INR, PTT in the last 10110 hours. Micro Microbiology Results (Displays last 21 [...] ? Tammi Perez MD PGY-3 Internal Medicine HANDLER Associated attestation - Ama Gonzalez MD - 06/06/2022 9:13 PM LEAD HANDLER I have verified the documentation of the [...] polypharmacy, who was admitted to [facility] spine 06/04 for a planned cervical-thoracic [...] 72 year old, female : 1950 CSN: [id number] Primary Care Physician: Karrie Phillips MD, MD [...] for input(s): PT, INR in the last 91592 hours. No results for input(s): PTT in the last 90965 hours. Cultures No results found for this or any previous visit (from the past 248 hour(s)). Physical Exam General: Awake, alert, follows commands, in no acute distress Neck: - C-collar/[place] J: Present - Tenderness to palpation: Deferred [...] concerns Joey Dickens MD 06/06/2022 8:08 AM HANDLER Associated attestation - Deon Taylor MD - 06/06/2022 12:41 PM LEAD HANDLER I have seen and evaluated the patient and agree with the resident's assessment and plan as stated above. I have independently reviewed all imaging studies. Deon Talyor MD * Makenzie Choi RN - 06/06/2022 [...] to allow for safe mobility Outcome: Progressing HANDLER * Slim Camacho RN - 06/05/2022 11:00 [...] to allow for safe mobility Outcome: Progressing HANDLER * Tammi Perez MD - 06/05/2022 4:34 PM CST Internal Medicine Progress Note Patient: Kandace Cole (:1950) Room: [facility]/ Date of admission: 06/04/2022 No [...] results for input(s): MG in the last 80862 hours. Phosphorus: Recent Labs Component Name 02/16/22 0757 PHOS 3.9 Coagulation: No results for input(s): PT, INR, PTT in the last 52886 hours. Micro Microbiology Results (Displays last 21 [...] ? Tammi Perez MD PGY-3 Internal Medicine HANDLER Associated attestation - Ama Gonzalez MD - 06/05/2022 8:56 PM LEAD HANDLER I have verified the documentation of the [...] polypharmacy, who was admitted to [facility] spine 06/04 for a planned cervical-thoracic [...] patient's preference is to stay within the [facility] Network and its affiliates.: Unsure Comments: Lives with: Other (Comment) (Grandson) Physical Limitations: None Independent with the use of a ww Requires Assistance With: None Preferred Pharmacy: [facility] - [address] [facility] [id number] [address] [facility] [id number] Advance Directive: No Advance Directive Information Given: Not Applicable Would you like assistance on completing and executing or revising an Advance Directive?: No Payer/Plan Subscriber Name Rel Member # Group # [facility] MANAGED MEDICARE * KANDACE COLE [id number] [address] [id number] 16 at 4:08 PM 06/05/2022. Met with patient Family Support (name and phone): Extended Emergency Contact Information Primary Emergency Contact: BARBARA CISNEROS Mobile Relation: Brother Secondary Emergency Contact: Barbara Cisneros Address: [place]OTHER [place], [place] Relation: Other Patient or collections representative requests care coordination reach out to family or caregiver listed above regarding discharge planning and at time of discharge? Yes grandson Patient/Family provided with list of resources? Unknown Preferred Provider / High Quality Network List given?: Unknown Reason for provider choice: Unknown Equipment at Home: Chair-Shower;Grab Bars;Cane-Small Base Quad;Walker-2 Wheeled;Walker-4 Wheeled with Seat List DME pt. requires but does not have.: None Quality Intern Referral: Yes -Placement Will continue to follow. For any questions or needs please contact: Automatic Lathe Tender Name/Phone number: Cammy Aleman RN Case airport duty manager: [phone] 06/05/2022 HANDLER * Heather Sethi - 06/05/2022 2:44 PM CST Internal Medicine Progress Note Patient: Kandace Cole (:1950) Room: [facility] Date of admission: 06/04/2022 No of [...] results for input(s): MG in the last 02833 hours. Phosphorus: Recent Labs Component Name 02/16/22 0757 PHOS 3.9 Coagulation: No results for input(s): PT, INR, PTT in the last 71114 hours. Micro Microbiology Results (Displays last 21 [...] is HDS. Heather Sethi MS3 Internal Medicine HANDLER Associated attestation - Ama Gonzalez MD - 06/05/2022 11:04 PM LEAD HANDLER I have verified the documentation of the [...] Achieves restful, refreshing sleep pattern. Outcome: Progressing HANDLER * Sandra Brown, PT - 06/05/2022 10:27 AM CST [facility] Physical Therapy Initial Evaluation Note Patient: [facility] Record Number: [id number] Date of : 1950 Age: [age] year [...] Migraine Ulnar neuropathy Type 2 diabetes mellitus ([facility]/HCC) Type 2 diabetes mellitus with stage 3 chronic kidney disease, without long-term current use of insulin ([facility]) Temporomandibular joint disorder Systemic sclerosis ([facility]/HCC) Sprain of ankle Sciatica Recurrent major depression in remission ([facility]) Raynaud's disease Primary fibromyalgia syndrome Polyp of colon Perineal pain Paronychia of toe of right foot Onychomycosis of toenail Nonexudative 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 Anemia ??? Ferrell's esophagus ??? CKD (chronic kidney disease), stage III ([facility]) ??? Diabetes ??? Disease of esophagus [...] feet with minimal assist and appropriate AD Supervisor [employer] Goal(s): Patient to discharge to appropriate next [...] reach, with RNMigdalia, aware. All lines intact. HANDLER * Olimpia Adames OT - 06/05/2022 10:22 AM CST [facility] Occupational Therapy Initial Evaluation Note Patient: Kandace Cole Med Record Number: [id number] Date of : 1950 Age: [age] year [...] closed fractures of facial bone, initial encounter ([facility]) Abdominal pain Abnormal serum creatinine level Anemia Ferrell's esophagus Cardiomegaly Chronic kidney disease Chronic obstructive pulmonary disease ([facility]) Chronic depression Dyspnea on exertion Benign essential hypertension Glaucoma Hyperkalemia Hyposmolality Hyperthyroidism Hypothyroidism Intractable chronic migraine without aura Iron deficiency anemia Leukocytosis Macular degeneration Migraine Ulnar neuropathy Type 2 diabetes mellitus ([facility]) Type 2 diabetes mellitus with stage 3 chronic kidney disease, without long-term current use of insulin ([facility]) Temporomandibular joint disorder Systemic sclerosis ([facility]) Sprain of ankle Sciatica Recurrent major depression in remission ([facility]) Raynaud's disease Primary fibromyalgia syndrome Polyp of colon Perineal pain Paronychia of toe of right foot Onychomycosis of toenail Nonexudative 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 Nausea Multiple bruises Mixed hyperlipidemia Mixed collagen vascular disease ([facility]) Past Medical History: Diagnosis Date ??? Anemia ??? Ferrell's esophagus ??? CKD (chronic kidney disease), stage III ([facility]) ??? Diabetes ??? Disease of esophagus [...] ACTIVITY TOLERANCE: Patient's activity tolerance: fair. Modified [place]: TREATMENT / EDUCATION / INTERVENTIONS: While performing [...] light within reach, with RN, Migdalia aware. HANDLER * Joey Dickens MD - 06/05/2022 6:53 AM CST [facility] Spine Surgery Daily Progress Note Kandace Cole, 72 year old, female : 1950 CSN: [id number] Primary Care Physician: Karrie Phillips MD, MD [...] for input(s): PT, INR in the last 09872 hours. No results for input(s): PTT in the last 91214 hours. Cultures No results found for this or any previous visit (from the past 248 hour(s)). Physical Exam General: Awake, alert, follows commands, in no acute distress Neck: - C-collar/[place] J: Present - Tenderness to palpation: Deferred [...] concerns Joey Dickens MD 06/05/2022 6:53 AM HANDLER Associated attestation - Deon Taylor MD - 06/05/2022 4:23 PM LEAD HANDLER I have seen and evaluated the patient [...] Achieves restful, refreshing sleep pattern. Outcome: Progressing HANDLER * Yaritza Lynch RN - 06/04/2022 2:46 [...] Achieves restful, refreshing sleep pattern. Outcome: Progressing HANDLER * Padma Morales MD - 06/04/2022 11:51 [...] Activity: as tolerated from ortho perspective in [place] collar 2. PT/OT 3. Pain Control- oral medications 4. DVT Prophylaxis: ambulation, SCDs 5. Drains? HV x1 6. Continue perioperative ancef 7. Admit to floor under Ortho Spine 8. Please page Ortho Spine with any additional questions or concerns Padma Morales MD 06/04/2022 4:23 PM HANDLER documented in this encounter H&P Notes * Padma Morales MD - 06/04/2022 5:28 AM CST Orthopedic Spine Surgery H&P Note Kandace Cole, 72 year old, female : 1950 CSN: [id number] Diagnosis/Procedures 1.) Cervical myelopathy Today's Date: 06/04/2022 [...] concerns Padma Morales MD 06/04/2022 5:28 AM HANDLER Associated attestation - Deon Taylor MD - 06/04/2022 7:15 AM LEAD HANDLER I have seen and evaluated the patient and agree with the resident's assessment and plan as stated above. I have independently reviewed all imaging studies. Deon Taylor MD documented in this encounter Consult Notes * Charissa Murphy - 06/06/2022 4:02 PM CSTAssociated Order(s): IP CONSULT TO NCA CERTIFIED CONCIERGE SW newly assigned and following for placement and disposition. SW acknowledge referral for placement in facility. SW was informed that patient will need rehab. SW made referrals. Continued Care and Services - Admitted Since 06/04/2022 Destination Service Provider Request Status Selected Services Address Phone Fax Patient Preferred [facility] Pending - Request Sent N/A [id number] [facility] [phone] -- [facility] (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 Weight hx limited; RD noted 6.5% [...] Pain affecting intake: No Estimated Needs: KCAL: 5308-6102 (25-30 kcal/kg ABW) Protein (g): 90 (1.5 [...] Goal Progress: New goal established Ascom: 4533 HANDLER * Adolph Juarez, BRADLEY-GLOBE CHANGER - 06/04/2022 2:17 PM CSTAssociated Order(s): IP [...] Lives at home with grandson in [facility]. Does not smoke or drink. [...] 200 MG tablet ??? saline nasal spray ([place]; Baby [place]) 0.65 % nasal spray RCS: Memory very [...] mouth once daily ??? saline nasal spray ([place]; [place]) 0.65 % nasal spray [place] 1 (one) spray into each nostril [...] input(s): PT, INR, APTT in the last 27335 hours. Cardiac markers: Recent Labs Component Name [...] Juarez, ANP-, Geriatrics 06/04/2022 2:17 PM Pager: [phone] HANDLER Associated attestation - Dorothy Stahl MD - 06/04/2022 10:04 PM LEAD HANDLER I have verified the documentation of the EDITOR MAGAZINE including all history, exam, and medical decision-making [...] Lives at home with grandson in [facility]. Does not smoke or drink. [...] (SEROquel) 200 MG tablet saline nasal spray ([place]; [place]) 0.65 % nasal spray RCS: Memory very [...] by mouth once daily saline nasal spray ([place]; [place]) 0.65 % nasal spray [place] 1 (one) spray into each nostril [...] input(s): PT, INR, APTT in the last 03394 hours. Cardiac markers: Recent Labs Component Name [...] senna). -Falls/Aspiration precautions. -Rest of plan per EDITOR MAGAZINE note. Thank you for this consult. We will continue to follow along with you. Please call with questions. Keely Stahl MD Geriatric attending Pager: [phone] documented in this encounter OR Notes * Brief Op Note - Padma Morales MD - 06/04/2022 8:42 AM CST Brief Op Note Procedure: C5-C6 laminectomy, C4-T2 posterior instrumented spinal fusion Patient Name: Kandace Cole Date of Service: 06/04/2022 Pre-Op Diagnosis: cervical myelopathy Post-Op Diagnosis: Same as above Surgeon(s) and Role: * Deon Taylor MD - Primary Emblem Maker(s): Padma Morales MD - Resident - Assisting [...] Implant Name Type Inv. Item Serial No. Cigarette Paper Tester Lot No. LRB No. Used Action Jean Bone Void 10Ml Dbm Grftn Algrf Ptty Jean Bone Void 10Ml Dbm Grftn Algrf Ptty [employer] [id number] N/A 1 Implanted Jean Bone Void 10Ml Dbm Grftn Algrf Ptty Jean Bone Void 10Ml Dbm Grftn Algrf Ptty [employer] Inc [id number] N/A 1 Implanted Graft Bone Canc 4-9.5Mm 15Cc Frzdr Chp Graft Bone Canc 4-9.5Mm 15Cc Frzdr Chp [employer]ource [id number]/A 1 Implanted Graft Bone Canc 4-9.5Mm 30Cc Algrf Frzdr Graft Bone Canc 4-9.5Mm 30Cc Algrf Frzdr [employer] [id number] N/A 1 Implanted 3.5 x 14mm screw Synthes Spine N/A 4 Implanted 4.0x 20mm screw Synthes Spine N/A 2 Implanted 5.0 x 24mm screw Synthes Spine N/A 2 Implanted 4.5 x 26mm screw Synthes Spine N/A 2 Implanted screw caps Synthes Spine N/A 10 Implanted 90mm rods [place] Spine N/A 2 Implanted Padma Morales MD HANDLER * Operative - Deon Taylor MD - 06/04/2022 8:42 AM CST Kandace Cole 1950 Date of Surgery 06/04/22 PREOPERATIVE DIAGNOSIS: cervical myelopathy POSTOPERATIVE DIAGNOSIS: same PROCEDURES: 1. Cervical Laminectomy C5/6 with partial medial facetectomies (30482) 2. Posterior Arthrodesis C4-T2 (27660, 14833o7) 3. Posterior instrumentation C4-T2 (10007) 4. Application of local autograft and allograft (, 82422) 5. Application and removal of cranial tongs () SURGEON: Deon Taylor MD PRESSROOM SUPERVISOR: Varun Matute MD ANESTHESIA: General. COMPLICATIONS: [...] for further surgery, blood clots, PE, stroke, AK,paralysis, . After we reviewed of the risks [...] the appropriate lines and leads were placed [facility] Now tongs were positioned over the center rotation [...] C6 and gently pulled posteriorly while a Sullivan and [place] 2 were used to divide [...] SSEPs remained stable throughout. Deon Taylor MD HANDLER documented in this encounter Plan of Treatment Upcoming Encounters Date Type Department Care Team (Late st Contact Info) Description 06/02/2024 1:45 PM LEAD HANDLER Office Visit [facility] - Orthopedics [address] [place] [phone] Deon Taylor MD [employer] [place] [address] documented as of this encounter Procedures Procedure Name Priority Date/Time Associated Diagnosis Comments XR THORACIC SPINE 2VW Routine 07/18/2022 11:04 AM CDT Degeneration of cervical intervertebral disc GLUCOSE - POINT OF CARE Routine 06/08/2022 7:47 AM LEAD HANDLER CBC W/O DIFFERENTIAL Routine 06/08/2022 2:13 AM LEAD HANDLER Degeneration of cervical intervertebral disc BASIC METABOLIC PANEL (CALCIUM TOTAL) Routine 06/08/2022 2:13 AM LEAD HANDLER Degeneration of cervical intervertebral disc PHOSPHORUS BLOOD Routine 06/08/2022 2:13 AM LEAD HANDLER MAGNESIUM BLOOD Routine 06/08/2022 2:13 AM LEAD HANDLER GLUCOSE - POINT OF CARE Routine 06/07/2022 11:25 PM LEAD HANDLER GLUCOSE - POINT OF CARE Routine 06/07/2022 9:31 PM LEAD HANDLER GLUCOSE - POINT OF CARE Routine 06/07/2022 5:52 PM LEAD HANDLER GLUCOSE - POINT OF CARE Routine 06/07/2022 12:00 PM LEAD HANDLER GLUCOSE - POINT OF CARE Routine 06/07/2022 8:21 AM LEAD HANDLER CBC W/O DIFFERENTIAL Routine 06/07/2022 2:24 AM LEAD HANDLER Degeneration of cervical intervertebral disc BASIC METABOLIC PANEL (CALCIUM TOTAL) Routine 06/07/2022 2:24 AM LEAD HANDLER Degeneration of cervical intervertebral disc PHOSPHORUS BLOOD Routine 06/07/2022 2:24 AM LEAD HANDLER MAGNESIUM BLOOD Routine 06/07/2022 2:24 AM LEAD HANDLER GLUCOSE - POINT OF CARE Routine 06/06/2022 8:38 PM LEAD HANDLER GLUCOSE - POINT OF CARE Routine 06/06/2022 5:02 PM LEAD HANDLER GLUCOSE - POINT OF CARE Routine 06/06/2022 12:26 PM LEAD HANDLER TRANSFUSE RED BLOOD CELL LEUKOREDUCED UNIT(S) Routine 06/06/2022 9:42 AM LEAD HANDLER PREPARE RBC LEUKOREDUCED UNIT Routine 06/06/2022 9:36 AM LEAD HANDLER GLUCOSE - POINT OF CARE Routine 06/06/2022 8:00 AM LEAD HANDLER PTH INTACT W/O CALCIUM AM Draw 06/06/2022 3:07 AM LEAD HANDLER HEMOGLOBIN A1C Routine 06/06/2022 3:07 AM LEAD HANDLER VITAMIN D 25-HYDROXY AM Draw 06/06/2022 3:07 AM LEAD HANDLER CBC W/O DIFFERENTIAL Routine 06/06/2022 3:07 AM LEAD HANDLER Degeneration of cervical intervertebral disc BASIC METABOLIC PANEL (CALCIUM TOTAL) Routine 06/06/2022 3:07 AM LEAD HANDLER Degeneration of cervical intervertebral disc PHOSPHORUS BLOOD Routine 06/06/2022 3:07 AM LEAD HANDLER MAGNESIUM BLOOD Routine 06/06/2022 3:07 AM LEAD HANDLER FOLATE Routine 06/06/2022 3:07 AM LEAD HANDLER VITAMIN B12 AM Draw 06/06/2022 3:07 AM LEAD HANDLER IRON + TRANSFERRIN PANEL Routine 06/06/2022 3:07 AM LEAD HANDLER FERRITIN Routine 06/06/2022 3:07 AM LEAD HANDLER GLUCOSE - POINT OF CARE Routine 06/05/2022 8:51 PM LEAD HANDLER GLUCOSE - POINT OF CARE Routine 06/05/2022 5:59 PM LEAD HANDLER GLUCOSE - POINT OF CARE Routine 06/05/2022 4:27 PM LEAD HANDLER GLUCOSE - POINT OF CARE Routine 06/05/2022 12:37 PM LEAD HANDLER CBC W/O DIFFERENTIAL Timed 06/05/2022 12:32 PM LEAD HANDLER XR CERVICAL SPINE 2 OR 3VW Routine 06/05/2022 9:35 AM LEAD HANDLER Degeneration of cervical intervertebral disc GLUCOSE - POINT OF CARE Routine 06/05/2022 8:39 AM LEAD HANDLER CBC W/O DIFFERENTIAL Routine 06/05/2022 4:58 AM LEAD HANDLER Degeneration of cervical intervertebral disc BASIC METABOLIC PANEL (CALCIUM TOTAL) Routine 06/05/2022 4:58 AM LEAD HANDLER Degeneration of cervical intervertebral disc GLUCOSE - POINT OF CARE Routine 06/04/2022 8:20 PM LEAD HANDLER GLUCOSE - POINT OF CARE Routine 06/04/2022 11:51 AM LEAD HANDLER FL JOSÉ LUIS SURGERY STAT 06/04/2022 11:30 AM LEAD HANDLER Degeneration of cervical intervertebral disc FUSION POSTERIOR CERVICAL (PCF) 06/04/2022 8:42 AM LEAD HANDLER Cervical myelopathy (HCC) Case Notes LATEX ALLERGY Special Needs PRONE, C-ARM CERVICAL ATTACHMENT JULIETH DONALD NEURO MONITORING POWER:4mm jose, 4mm cutter, 2mm cutter DEPUY: DELILAH MCGINNIS [phone]; [place] [phone]--reps notified mk 06/01 GLUCOSE - POINT OF CARE Routine 06/04/2022 6:39 AM LEAD HANDLER TYPE + SCREEN PANEL MARLEE 06/04/2022 6:39 AM LEAD HANDLER Preop examination documented in this encounter Results [...] MD on 07/18/2022 11:31 AM Lyla Blackwell APRN-GLOBE CHANGER DIAGNOSTIC IMAG ING ORDERABLES * GLUCOSE - POINT OF CARE (06/08/2022 7:47 AM LEAD HANDLER) Glucose WB/POC 95 70 - 115 mg/dL 06/08/2022 7:48 AM LEAD HANDLER [facility] Specimen Type Arterial 06/08/2022 7:48 AM LEAD HANDLER [facility] Blood BLOOD SPECIMEN / Unknown 06/08/2022 7:47 AM LEAD HANDLER 06/08/2022 7:48 AM LEAD HANDLER Ama Gonzalez MD LAB - POINT OF C ARE ORDERABLES [address] [address], [facility] [phone] * (ABNORMAL) PHOSPHORUS BLOOD (06/08/2022 2:13 AM LEAD HANDLER) Phosphorus 2.5(L) 2.9 - 5.1 mg/dL 06/08/2022 3:12 AM LEAD HANDLER [facility] Blood BLOOD SPECIMEN / Unknown Lab Venipuncture / Unknown 06/08/2022 2:13 AM LEAD HANDLER 06/08/2022 2:44 AM LEAD HANDLER Ama Gonzalez MD LAB - CHEMISTRY ORDERABLES [address] [address], [facility] [phone] * MAGNESIUM BLOOD (06/08/2022 2:13 AM LEAD HANDLER) Pathologist [facility] Magnesium 1.7 1.6 - 2.6 mg/dL 06/08/2022 3:12 AM [facility] Blood BLOOD SPECIMEN / Unknown Lab Venipuncture / Unknown 06/08/2022 2:13 AM LEAD HANDLER 06/08/2022 2:44 AM LEAD HANDLER Ama Gonzalez MD LAB - CHEMISTRY ORDERABLES Performing Organization Address City/[facility]/ZIP Co de Phone Number [address] [address], [facility] [phone] * (ABNORMAL) CBC W/O DIFFERENTIAL (06/08/2022 2:13 AM LEAD HANDLER) WBC 9.2 3.5 - 10.5 10? 3 [...] Lab Venipuncture / Unknown 06/08/2022 2:13 AM LEAD HANDLER 06/08/2022 2:43 AM [facility] Deon Taylor MD LAB - HEMATOLOGY ORD ERABLES [facility] [address] [place] [address], [facility] [phone] * (ABNORMAL) BASIC METABOLIC PANEL (CALCIUM TOTAL) (06/08/2022 2:13 AM LEAD HANDLER) BUN 25 7 - 26 mg/dL 06/08/2022 [...] Lab Venipuncture / Unknown 06/08/2022 2:13 AM LEAD HANDLER 06/08/2022 2:44 AM LEAD HANDLER Deon Taylor MD LAB - CHEMISTRY [place] [address] [address], [place] [phone] * GLUCOSE - POINT OF CARE (06/07/2022 11:25 PM LEAD HANDLER) Glucose WB/POC 94 70 - 115 mg/dL 06/08/2022 4:12 PM [facility] Specimen Type Cap Fingerstick 2022 4:12 PM [facility] Blood BLOOD SPECIMEN / Unknown 06/07/2022 11:25 PM LEAD HANDLER 06/08/2022 4:12 PM LEAD HANDLER Ama Gonzalez MD LAB - POINT OF C ARE ORDERABLES [address] [address], [place] [phone] * GLUCOSE - POINT OF CARE (06/07/2022 9:31 PM LEAD HANDLER) Glucose WB/POC 82 70 - 115 mg/dL 06/07/2022 9:36 PM [facility] Specimen Type Cap Fingerstick 2022 9:36 PM [facility] Blood BLOOD SPECIMEN / Unknown 06/07/2022 9:31 PM LEAD HANDLER 06/07/2022 9:36 PM LEAD HANDLER Ama Gonzalez MD LAB - POINT OF ARE ORDERABLES [address] [address], [place] [phone] * GLUCOSE - POINT OF CARE (06/07/2022 5:52 PM LEAD HANDLER) Glucose WB/POC 103 70 - 115 mg/dL 06/07/2022 5:52 PM LEAD HANDLER [facility] Specimen Type Arterial 06/07/2022 5:52 PM LEAD HANDLER [facility] Blood BLOOD SPECIMEN / Unknown 06/07/2022 5:52 PM LEAD HANDLER 06/07/2022 5:52 PM LEAD HANDLER Ama Gonzalez MD LAB - POINT OF ARE ORDERABLES [address] [address], [place] [phone] * (ABNORMAL) GLUCOSE - POINT OF CARE (06/07/2022 12:00 PM LEAD HANDLER) Glucose WB/POC 153(H) 70 - 115 mg/dL 06/07/2022 12:04 PM LEAD HANDLER [facility] Specimen Type Cap Fingerstick 2022 12:04 PM LEAD HANDLER [facility] Blood BLOOD SPECIMEN / Unknown 06/07/2022 12:00 PM LEAD HANDLER 06/07/2022 12:04 PM LEAD HANDLER Ama Gonzalez MD LAB - POINT OF ARE ORDERABLES [address] [address], [place] [phone] * GLUCOSE - POINT OF CARE (06/07/2022 8:21 AM LEAD HANDLER) Glucose WB/POC 91 70 - 115 mg/dL 06/07/2022 8:24 AM LEAD HANDLER [facility] Specimen Type Cap Fingerstick 2022 8:24 AM [facility] Blood BLOOD SPECIMEN / Unknown 06/07/2022 8:21 AM LEAD HANDLER 06/07/2022 8:24 AM LEAD HANDLER Ama Gonzalez MD LAB - POINT OF C ARE ORDERABLES [address] [address], [place] [phone] * (ABNORMAL) PHOSPHORUS BLOOD (06/07/2022 2:24 AM LEAD HANDLER) Phosphorus 2.7(L) 2.9 - 5.1 mg/dL 06/07/2022 3:34 AM LEAD HANDLER [facility] Blood BLOOD SPECIMEN / Unknown Lab Venipuncture / Unknown 06/07/2022 2:24 AM LEAD HANDLER 06/07/2022 3:01 AM LEAD HANDLER Ama Gonzalez MD LAB - CHEMISTRY ORDERABLES Performing Organization Address [facility] Co de Phone Number [address] [address], [place] [phone] * MAGNESIUM BLOOD (06/07/2022 2:24 AM LEAD HANDLER) Magnesium 2.1 1.6 - 2.6 mg/dL 06/07/2022 3:34 AM LEAD HANDLER [facility] Blood BLOOD SPECIMEN / Unknown Lab Venipuncture / Unknown 06/07/2022 2:24 AM LEAD HANDLER 06/07/2022 3:01 AM LEAD HANDLER Ama Gonzalez MD LAB - CHEMISTRY ORDERABLES Performing Organization Address City/[facility]/ZIP Co de Phone Number [address] [address], [place] [phone] * (ABNORMAL) CBC W/O DIFFERENTIAL (06/07/2022 2:24 AM LEAD HANDLER) WBC 11.8(H) 3.5 - 10.5 10? 3 [...] Lab Venipuncture / Unknown 06/07/2022 2:24 AM LEAD HANDLER 06/07/2022 3:01 AM [facility] Deon Taylor MD LAB - HEMATOLOGY ORD ERABLES [facility] [address] [place] [address], [facility] [phone] * (ABNORMAL) BASIC METABOLIC PANEL (CALCIUM TOTAL) (06/07/2022 2:24 AM LEAD HANDLER) BUN 25 7 - 26 mg/dL 06/07/2022 [...] Lab Venipuncture / Unknown 06/07/2022 2:24 AM LEAD HANDLER 06/07/2022 3:01 AM [facility] Deon Taylor MD LAB - CHEMISTRY [facility]LO [facility] Organization Address City/State/ZIP Co de Phone Number [facility] [address] [place] [address], [facility] [phone] * (ABNORMAL) GLUCOSE - POINT OF CARE (06/06/2022 8:38 PM LEAD HANDLER) Pathologist [facility] Glucose WB/POC 137(H) 70 - 115 mg/dL 06/06/2022 8:39 PM LEAD HANDLER [facility] Specimen Type Cap Fingerstick 2022 8:39 PM LEAD HANDLER [facility] Blood BLOOD SPECIMEN / Unknown 06/06/2022 8:38 PM LEAD HANDLER 06/06/2022 8:39 PM LEAD HANDLER Ama Gonzalez MD LAB - POINT OF C ARE ORDERABLES [address] [address], [place] [phone] * (ABNORMAL) GLUCOSE - POINT OF CARE (06/06/2022 5:02 PM LEAD HANDLER) Glucose WB/POC 241(H) 70 - 115 mg/dL 06/06/2022 5:03 PM LEAD HANDLER [facility] Specimen Type Arterial 06/06/2022 5:03 PM LEAD HANDLER [facility] Blood BLOOD SPECIMEN / Unknown 06/06/2022 5:02 PM LEAD HANDLER 06/06/2022 5:03 PM LEAD HANDLER Ama Gonzalez MD LAB - POINT OF ARE ORDERABLES [address] [address], [place] [phone] * (ABNORMAL) GLUCOSE - POINT OF CARE (06/06/2022 12:26 PM LEAD HANDLER) Glucose WB/POC 165(H) 70 - 115 mg/dL 06/06/2022 12:27 PM LEAD HANDLER [facility] Specimen Type Arterial 06/06/2022 12:27 PM LEAD HANDLER [facility] Blood BLOOD SPECIMEN / Unknown 06/06/2022 12:26 PM LEAD HANDLER 06/06/2022 12:27 PM LEAD HANDLER Ama Gonzalez MD LAB - POINT OF C ARE ORDERABLES [address] [place] [address], [facility] [phone] * TRANSFUSE RED BLOOD CELL LEUKOREDUCED UNIT(S) (06/06/2022 12:20 PM LEAD HANDLER) Ama Gonzalez MD NURSING - BLOOD PROD TRANSFUSION * TRANSFUSE RED BLOOD CELL LEUKOREDUCED UNIT(S), 1 Units (06/06/2022 12:20 PM LEAD HANDLER) Ama Gonzalez MD NURSING - BLOOD PROD TRANSFUSION * PREPARE (CROSSMATCH) RBC UNIT(S), 1 Units (06/06/2022 9:36 AM LEAD HANDLER) Unit Description AS1 LR PRBC [facility] LAB Unit ABO A [facility] B[facility] LAB Unit Rh POS [facility] Product Number R02 [facility] B LOOD BANK LAB Unit Donor # [id number] [facility] LAB Unit Status transfused [facility] BLO OD BANK LAB Product Code [id number] [facility] BLO OD BANK LAB Blood Type Barcode 6200 [facility] LAB Expiration Date [id number] S BLOOD BANK LAB Blood Bank BLOOD SPECIMEN / Unknown 06/04/2022 6:44 AM LEAD HANDLER Ama Gonzalez MD LAB - BLOOD BANK ORDERABLES [facility] BLOOD B[facility] LAB [facility] [place] [address], [facility] [phone] * (ABNORMAL) GLUCOSE - POINT OF CARE (06/06/2022 8:00 AM LEAD HANDLER) Glucose WB/POC 125(H) 70 - 115 mg/dL 06/06/2022 8:01 AM LEAD HANDLER [facility] Specimen Type Arterial 06/06/2022 8:01 AM LEAD HANDLER [facility] Blood BLOOD SPECIMEN / Unknown 06/06/2022 8:00 AM LEAD HANDLER 06/06/2022 8:01 AM LEAD HANDLER Ama Gonzalez MD LAB - POINT OF C ARE ORDERABLES [address] [address], [facility] [phone] * PHOSPHORUS BLOOD (06/06/2022 3:07 AM LEAD HANDLER) Pathologist [facility] Phosphorus 3.2 2.9 - 5.1 mg/dL 06/06/2022 4:03 AM [facility] Blood BLOOD SPECIMEN / Unknown Lab Venipuncture / Unknown 06/06/2022 3:07 AM LEAD HANDLER 06/06/2022 3:29 AM LEAD HANDLER Ama Gonzalez MD LAB - CHEMISTRY ORDERABLES [address] [address], [facility] [phone] * MAGNESIUM BLOOD (06/06/2022 3:07 AM LEAD HANDLER) Pathologist [facility] Magnesium 1.6 1.6 - 2.6 mg/dL 06/06/2022 4:03 AM [facility] Blood BLOOD SPECIMEN / Unknown Lab Venipuncture / Unknown 06/06/2022 3:07 AM LEAD HANDLER 06/06/2022 3:29 AM LEAD HANDLER Ama Gonzalez MD LAB - CHEMISTRY ORDERABLES Performing Organization Address City/[facility]/ZIP Co de Phone Number [address] [address], [facility] [phone] * (ABNORMAL) CBC W/O DIFFERENTIAL (06/06/2022 3:07 AM [facility]) WBC 8.5 3.5 - 10.5 10? 3 [...] Lab Venipuncture / Unknown 06/06/2022 3:07 AM [facility] HAND[employer] 06/06/2022 3:29 AM [facility] Deon Taylor MD LAB - HEMATOLOGY ORD ERABLES [facility] [address] [place] [address], [facility] [phone] * (ABNORMAL) BASIC METABOLIC PANEL (CALCIUM TOTAL) (06/06/2022 3:07 AM [facility]) BUN 25 7 - 26 mg/dL [...] Lab Venipuncture / Unknown 06/06/2022 3:07 AM [facility] 06/06/2022 3:29 AM LEAD HANDLER Deon Taylor MD LAB - CHEMISTRY ORDE SORAIDA [address] [address], [place] [phone] * FOLATE (06/06/2022 3:07 AM LEAD HANDLER) Folate 9.4 7.0 - 31.4 ng/mL 06/06/2022 4:35 AM [facility] Blood BLOOD SPECIMEN / Unknown Lab Venipuncture / Unknown 06/06/2022 3:07 AM LEAD HANDLER 06/06/2022 3:29 AM LEAD HANDLER Ama Gonzalez MD LAB - CHEMISTRY ORDERABLES Performing Organization Address City/[facility]/ZIP Co de Phone Number [address] [address], [place] [phone] * VITAMIN B12 (06/06/2022 3:07 AM LEAD HANDLER) Vitamin B12 382 213 - 816 pg/mL 06/06/2022 4:35 AM [facility] Blood BLOOD SPECIMEN / Unknown Lab Venipuncture / Unknown 06/06/2022 3:07 AM LEAD HANDLER 06/06/2022 3:29 AM LEAD HANDLER Ama Gonzalez MD LAB - CHEMISTRY ORDERABLES [address] [address], [facility] [phone] * FERRITIN (06/06/2022 3:07 AM LEAD HANDLER) Ferritin 94 13 - 204 ng/mL 06/06/2022 4:10 AM [facility] Blood BLOOD SPECIMEN / Unknown Lab Venipuncture / Unknown 06/06/2022 3:07 AM LEAD HANDLER 06/06/2022 3:25 AM LEAD HANDLER Ama Gonzalez MD LAB - CHEMISTRY ORDERABLES Performing Organization Address City/[facility]/ZIP Co de Phone Number [address] [address], [place] [phone] * (ABNORMAL) IRON + TRANSFERRIN PANEL (06/06/2022 3:07 AM LEAD HANDLER) Iron 20(L) 40 - 150 ug/dL 06/06/2022 3:53 AM [facility] Transferrin 162(L) 174 - 382 mg/dL 06/06/2022 3:53 AM [facility] Transferrin Saturation % 10(L) 16 - 50 % 06/06/2022 3:53 AM [facility] TIBC Calculated 203(L) 240 - 450 ug/dL 06/06/2022 3:53 AM [facility] Blood BLOOD SPECIMEN / Unknown Lab Venipuncture / Unknown 06/06/2022 3:07 AM LEAD HANDLER 06/06/2022 3:25 AM LEAD HANDLER Ama Gonzalez MD LAB - CHEMISTRY ORDERABLES Performing Organization Address City/[facility]/ZIP Co de Phone Number [address] [address], [facility] [phone] * HEMOGLOBIN A1C (06/06/2022 3:07 AM LEAD HANDLER) Hemoglobin A1c 5.3 <=5.6 % 06/06/2022 3:38 [...] to evaluate metabolic control in patients. Reference: [place] [employer], Standards of Care in Diabetes -2020 In patients 70 years and older consider HbA1c target range of 7.0-7.5% (Reference: Oswaldo Liz et al. JAMDA. 2012) The Sebia assay for the measurement of HbA1c is a National Glycohemoglobin Standardization Program (NGSP) certified method. Blood BLOOD SPECIMEN / Unknown Lab Venipuncture / Unknown 06/06/2022 3:07 AM LEAD HANDLER 06/06/2022 3:28 AM LEAD HANDLER Ama Gonzalez MD LAB - CHEMISTRY ORDERABLES [address] [address], [facility] [phone] * PTH INTACT W/O CALCIUM (06/06/2022 3:07 AM LEAD HANDLER) PTH Intact 72.1 8.0 - 77.0 pg/mL 06/06/2022 4:04 AM [facility] Blood BLOOD SPECIMEN / Unknown Lab Venipuncture / Unknown 06/06/2022 3:07 AM LEAD HANDLER 06/06/2022 3:32 AM LEAD HANDLER Deon Taylor MD LAB - CHEMISTRY CHELO QUIGLEY Performing Organization Address [facility]/ZIP Co de Phone Number [facility] [address] [place] [address], [place] [phone] * VITAMIN D 25-HYDROXY (06/06/2022 3:07 AM LEAD HANDLER) Pathologist [facility] Vitamin D, 25 Hydroxy 53.0 30.0 - 80.0 ng/mL 06/06/2022 4:35 AM LEAD HANDLER [facility] Comment: The recommendations for 25-Hydroxy Vitamin [...] Lab Venipuncture / Unknown 06/06/2022 3:07 AM LEAD HANDLER 06/06/2022 3:29 AM LEAD HANDLER Deon Taylor MD LAB - CHEMISTRY CHELO QUIGLEY Performing Organization Address [facility]/ZIP Co de Phone Number [facility] [address] [place] [address], [place] [phone] * (ABNORMAL) GLUCOSE - POINT OF CARE (06/05/2022 8:51 PM LEAD HANDLER) Pathologist [facility] Glucose WB/POC 152(H) 70 - 115 mg/dL 06/05/2022 8:52 PM LEAD HANDLER [facility] Specimen Type Cap Fingerstick 2022 8:52 PM LEAD HANDLER [facility] Blood BLOOD SPECIMEN / Unknown 06/05/2022 8:51 PM LEAD HANDLER 06/05/2022 8:52 PM LEAD HANDLER Ama Gonzalez MD LAB - POINT OF ARE ORDERABLES [address] [address], [place] [phone] * (ABNORMAL) GLUCOSE - POINT OF CARE (06/05/2022 5:59 PM LEAD HANDLER) Glucose WB/POC 185(H) 70 - 115 mg/dL 06/05/2022 6:02 PM [facility] Specimen Type Cap Fingerstick 2022 6:02 PM LEAD HANDLER [facility] Blood BLOOD SPECIMEN / Unknown 06/05/2022 5:59 PM LEAD HANDLER 06/05/2022 6:02 PM LEAD HANDLER Ama Gonzalez MD LAB - POINT OF ARE ORDERABLES Performing Organization Address City/[facility]/ZIP Co de Phone Number [address] [address], [place] [phone] * (ABNORMAL) GLUCOSE - POINT OF CARE (06/05/2022 4:27 PM LEAD HANDLER) Glucose WB/POC 208(H) 70 - 115 mg/dL 06/05/2022 4:28 PM LEAD HANDLER [facility] Specimen Type Arterial 06/05/2022 4:28 PM LEAD HANDLER [facility] Blood BLOOD SPECIMEN / Unknown 06/05/2022 4:27 PM LEAD HANDLER 06/05/2022 4:28 PM LEAD HANDLER Ama Gonzalez MD LAB - POINT OF C ARE ORDERABLES [address] [address], [place] [phone] * (ABNORMAL) GLUCOSE - POINT OF CARE (06/05/2022 12:37 PM LEAD HANDLER) Pathologist [facility] Glucose WB/POC 163(H) 70 - 115 mg/dL 06/05/2022 12:37 PM [facility] Specimen Type Arterial 06/05/2022 12:37 PM [facility] Blood BLOOD SPECIMEN / Unknown 06/05/2022 12:37 PM LEAD HANDLER 06/05/2022 12:37 PM LEAD HANDLER Ama Gonzalez MD LAB - POINT OF ARE ORDERABLES [facility] [address] [place] [address], [facility] [phone] * (ABNORMAL) CBC W/O DIFFERENTIAL (06/05/2022 12:32 PM LEAD HANDLER) [facility] WBC 10.0 3.5 - 10.5 10? 3 [...] Lab Venipuncture / Unknown 06/05/2022 12:32 PM LEAD HANDLER 06/05/2022 12:37 PM LEAD HANDLER Ama Gonzalez MD LAB - HEMATOLOGY ORDERABLES [facility] [address] [place] [address], [facility] [phone] * XR CERVICAL SPINE 2 OR 3VW (06/05/2022 9:35 AM LEAD HANDLER) Anatomical Region Laterality Modality Spine Radiographic Vivian ging 06/05/2022 11:4 5 AM LEAD HANDLER Impressions 06/05/2022 3:11 PM LEAD HANDLER IMPRESSION: Interval posterior spinal fusion of C4-T2. Poor delineation of the spine in this region in lateral projection. Report drafted by Jon Arias MD (vice president financial) I, Kamila Barber MD have personally reviewed and interpreted this examination/study. > Interpreting Provider: Kamila Barber MD on 06/05/2022 3:11 PM Narrative 06/05/2022 3:11 PM LEAD HANDLER PROCEDURE: ??XR CERVICAL SPINE 2 OR 3VW, DATE/TIME OF EXAM: ??06/05/2022 9:37 AM, LOCATION ??[facility] INDICATION: M50.30: Degeneration of cervical intervertebral [...] 3VW, DATE/TIME OF EXAM: 39:37 AM, LOCATION [facility] INDICATION: M50.30: Degeneration of cervical intervertebral [...] drafted by Jon Arias MD (vice president financial) I, Kamila Barber MD have personally reviewed and interpreted this examination/study. > Interpreting Provider: Kamila Barber MD on 06/05/2022 3:11 PM Lyla Blackwell MACHINE SILK SCREEN [employer]INTER[facility] IMAG ING ORDERABLES * GLUCOSE - POINT OF CARE (06/05/2022 8:39 AM LEAD HANDLER) Glucose WB/POC 109 70 - 115 mg/dL 06/05/2022 8:40 AM LEAD HANDLER [facility] Specimen Type Arterial 06/05/2022 8:40 AM LEAD HANDLER [facility] Blood BLOOD SPECIMEN / Unknown 06/05/2022 8:39 AM LEAD HANDLER 06/05/2022 8:40 AM LEAD HANDLER Deon Taylor MD LAB - POINT OF CARE ORDERABLES [facility] [address] [place] [address], [facility] [phone] * (ABNORMAL) CBC W/O DIFFERENTIAL (06/05/2022 4:58 AM LEAD HANDLER) WBC 10.4 3.5 - 10.5 10? 3 [...] Lab Venipuncture / Unknown 06/05/2022 4:58 AM LEAD HANDLER 06/05/2022 5:16 AM LEAD HANDLER Deon Taylor MD LAB - HEMATOLOGY ORD ERABLES [facility] [address] [place] [address], [facility] [phone] * (ABNORMAL) BASIC METABOLIC PANEL (CALCIUM TOTAL) (06/05/2022 4:58 AM LEAD HANDLER) BUN 27(H) 7 - 26 mg/dL 06/05/2022 [...] Lab Venipuncture / Unknown 06/05/2022 4:58 AM LEAD HANDLER 06/05/2022 5:17 AM LEAD HANDLER Deon Taylor MD LAB - CHEMISTRY CHELO QUIGLEY Performing Organization Address City/[facility]/ZIP Co de Phone Number [address] [address], [place] [phone] * (ABNORMAL) GLUCOSE - POINT OF CARE (06/04/2022 8:20 PM LEAD HANDLER) Glucose WB/POC 120(H) 70 - 115 mg/dL 06/04/2022 8:21 PM LEAD HANDLER [facility] Specimen Type Cap Fingerstick 2022 8:21 PM LEAD HANDLER [facility] Blood BLOOD SPECIMEN / Unknown 06/04/2022 8:20 PM LEAD HANDLER 06/04/2022 8:21 PM LEAD HANDLER Deon Taylor MD LAB - POINT OF CARE ORDERABLES Performing Organization Address [facility]/ZIP Co de Phone Number [address] [address], [place] [phone] * GLUCOSE - POINT OF CARE (06/04/2022 11:51 AM LEAD HANDLER) Glucose WB/POC 111 70 - 115 mg/dL 06/04/2022 11:56 AM LEAD HANDLER [facility] Specimen Type Cap Fingerstick 2022 11:56 AM LEAD HANDLER [facility] Blood BLOOD SPECIMEN / Unknown 06/04/2022 11:51 AM LEAD HANDLER 06/04/2022 11:55 AM LEAD HANDLER Deon Taylor MD LAB - POINT OF CARE ORDERABLES Performing Organization Address City/[facility]/ZIP Co de Phone Number [address] [address], [place] [phone] * FL JOSÉ LUIS SURGERY (06/04/2022 11:30 AM LEAD HANDLER) Narrative [facility] RADIOLOGY - 06/04/2022 12:52 PM LEAD HANDLER Fluoroscopy was used for this exam in the OR. Please see the Operative report. Deon Taylor MD FLUOROSCOPY ORDERABL ES Performing Organization Address City/[facility]/ZIP Co de Phone Number [facility] RADIOLOGY * (ABNORMAL) GLUCOSE - POINT OF CARE (06/04/2022 6:39 AM LEAD HANDLER) Glucose WB/POC 130(H) 70 - 115 mg/dL 06/05/2022 12:40 PM LEAD HANDLER [facility] Specimen Type Venous 06/05/2022 12:40 PM LEAD HANDLER [facility] Blood BLOOD SPECIMEN / Unknown 06/04/2022 6:39 AM LEAD HANDLER 06/05/2022 12:40 PM LEAD HANDLER Deon Taylor MD LAB - POINT OF CARE ORDERABLES Performing Organization Address [facility]/ZIP Co de Phone Number [facility] [address] [place] [address], [place] [phone] * TYPE + SCREEN PANEL (06/04/2022 6:39 AM LEAD HANDLER) Antibody Screen NEG 7:24 AM LEAD HANDLER [facility] BLOOD BANK LAB ABO Rh A POS 06/04/2022 7:24 AM LEAD HANDLER [facility] BLOOD BANK LAB Blood Bank BLOOD SPECIMEN / Unknown Venipuncture / Unknown 06/04/2022 6:39 AM LEAD HANDLER 06/04/2022 6:44 AM LEAD HANDLER Provider Unknown LAB - BLOOD BANK ORD ERABLES Performing Organization Address [facility] Co de Phone Number [facility] BLOOD BANK LAB [address] [place] [address], [place] [phone] documented in this encounter Visit Diagnoses Diagnosis [...] 8 hours. $ Given 06/08/2022 8:08 PM LEAD HANDLER 3 mL $ Given 06/08/2022 2:36 PM LEAD HANDLER 3 mL $ Given 06/08/2022 5:08 AM LEAD HANDLER 3 mL acetaminophen (Tylenol) tablet 1,000 mg [...] the MAR. $ Given 06/08/2022 8:07 PM LEAD HANDLER 1,000 mg $ Given 06/08/2022 2:36 PM LEAD HANDLER 1,000 mg $ Given 06/08/2022 9:07 AM LEAD HANDLER 1,000 mg bacitracin topical ointment PRN, Starting on Sat06/04/22 at 0800, Until Sat06/04/22 at 1142, Intra-op $ Given 06/04/2022 8:00 AM LEAD HANDLER 1 g buPROPion SR 12hr (Wellbutrin-SR) tablet 100 mg 100 mg, Oral, 2 TIMES DAILY, First dose on Sat06/04/22 at 1330, Until Discontinued, Do not crush, chew, or cut in half. $ Given 06/08/2022 8:07 PM LEAD HANDLER 100 mg $ Given 06/08/2022 9:07 AM LEAD HANDLER 100 mg $ Given 06/07/2022 8:20 PM LEAD HANDLER 100 mg carvedilol (Coreg) tablet 6.25 mg 6.25 mg, Oral, 2 TIMES DAILY, First dose on Sat06/04/22 at 2100, Until Discontinued, Take with food $ Given 06/08/2022 8:08 PM LEAD HANDLER 6.25 mg $ Given 06/08/2022 9:07 AM LEAD HANDLER 6.25 mg $ Given 06/07/2022 8:20 PM LEAD HANDLER 6.25 mg dextrose 10 % IV bolus [...] Until Discontinued $ Given 06/08/2022 9:07 AM LEAD HANDLER 20 mg $ Given 06/07/2022 8:42 AM LEAD HANDLER 20 mg $ Given 06/06/2022 8:20 AM LEAD HANDLER 20 mg gabapentin (Neurontin) capsule 300 mg 300 mg, Oral, 3 TIMES DAILY, First dose on Sat06/05/22 at 0800, Until Discontinued $ Given 06/08/2022 8:08 PM LEAD HANDLER 300 m g $ Given 06/08/2022 2:36 PM LEAD HANDLER 300 mg $ Given 06/08/2022 9:07 AM LEAD HANDLER 300 mg iron sucrose (Venofer) injection 200 mg 200 mg, Intravenous, DAILY, 5 doses, First dose on Sat06/06/22 at 0930, Last dose on Sat06/10/22 at 0900, May administer up to 200 mg of undiluted solution IVP slowly over 5 minutes $ Given 06/08/2022 9:06 AM LEAD HANDLER 200 mg $ Given 06/07/2022 8:42 AM LEAD HANDLER 200 mg $ Given 06/06/2022 10:37 AM LEAD HANDLER 200 mg latanoprost (Xalatan) 0.005 % ophthalmic solution 1 drop 1 drop, Each Eye, AT BEDTIME, First dose on Sat06/04/22 at 2100, Until Discontinued, Allow at least 5 minutes between administration of multiple ophthalmic products Once opened, store at room temperature $ Given 06/08/2022 8:08 PM LEAD HANDLER 1 drop $ Given 06/07/2022 8:22 PM LEAD HANDLER 1 drop $ Given 06/06/2022 8:27 PM LEAD HANDLER 1 drop lisinopril (Prinivil; Zestril) tablet 20 mg 20 mg, Oral, DAILY, First dose on Sat06/05/22 at 0900, Until Discontinued $ Given 06/08/2022 9:07 AM LEAD HANDLER 20 mg $ Given 06/07/2022 8:41 AM LEAD HANDLER 20 mg $ Given 06/06/2022 8:20 AM LEAD HANDLER 20 mg meclizine (Antivert) tablet 25 mg 25 mg, Oral, 3 TIMES DAILY PRN, Dizziness, Starting on Sat06/07/22 at 0945, Until Sat06/08/22 at 2259 $ Given 06/08/2022 10:50 AM LEAD HANDLER 25 mg $ Given 06/07/2022 1:57 PM LEAD HANDLER 25 mg ondansetron (Zofran) injection 4 mg 4 mg, Intravenous, EVERY 6 HOURS PRN, Nausea/Vomiting, Starting on Sat06/05/22 at 0759, Until Sat06/08/22 at 2259, Administer over 2 to 5 minutes. $ Given 06/06/2022 8:26 PM LEAD HANDLER 4 mg oxyCODONE (immediate release) (Roxicodone) tablet [...] MAR., Post-op $ Given 06/08/2022 10:50 AM LEAD HANDLER 5 mg $ Given 06/06/2022 8:27 PM LEAD HANDLER 5 mg $ Given 06/06/2022 4:57 AM LEAD HANDLER 5 mg pantoprazole EC (Protonix) tablet 40 mg 40 mg, Oral, DAILY, First dose on Sat06/04/22 at 1330, Until Discontinued, Do not crush, chew, or cut in half. $ Given 06/08/2022 9:07 AM LEAD HANDLER 40 mg $ Given 06/07/2022 8:41 AM LEAD HANDLER 40 mg $ Given 06/06/2022 8:20 AM LEAD HANDLER 40 mg polyethylene glycol 3350 (Miralax) packet 17 g 17 g, Oral, DAILY PRN, Constipation, Starting on Sat06/07/22 at 0906, Until Sat06/08/22 at 2259, Mix in 8 ounces of water, juice, soda, coffee or tea prior to administration, Post-op pravastatin (Pravachol) tablet 40 mg 40 mg, Oral, AT BEDTIME, First dose on Sat06/04/22 at 2100, Until Discontinued $ Given 06/08/2022 8:07 PM LEAD HANDLER 40 mg $ Given 06/07/2022 8:20 PM LEAD HANDLER 40 mg $ Given 06/06/2022 8:27 PM LEAD HANDLER 40 mg QUEtiapine (SEROquel) tablet 100 mg 100 mg, Oral, EVERY EVENING, First dose (after last modification) on Sat06/08/22 at 1700, Until Discontinued $ Given 06/08/2022 6:27 PM LEAD HANDLER 100 mg saline nasal spray ([place]; Baby [place]) 0.65 % nasal spray 2 spray 2 spray, Each Nostril, EVERY 1 HOUR PRN, Dry Nose, Starting on Sat06/06/22 at 0946, Until Sat06/08/22 at 2259 thrombin (recombinant) (Recothrom) solution PRN, Starting on Sat06/04/22 at 0908, Until Sat06/04/22 at 1142, Intra-op $ Given 06/04/2022 9:08 AM LEAD HANDLER 20,000 Units Back vancomycin (Vancocin) injection PRN, Starting on Sat06/04/22 at 1045, Until Sat06/04/22 at 1142, Indication for anti-infective therapy: Surgical prophylaxis, Intra-op $ Given 06/04/2022 10:45 AM LEAD HANDLER 1,000 mg Back vitamin D3 (Cholecalciferol) 10 MCG (400 UNIT) tablet 800 Units 800 Units, Oral, DAILY, First dose (after last modification) on 06/09/22 at 0900, Until Discontinued, 400 units = 10 mcg documented in this encounter Active and Recently Administered Medications Times are shown in LEAD HANDLER. Scheduled Medication Order 06/06/2022 06/07/2022 06/08/2022 0.9% [...] SN [facility]) 0907 ($ Given - Provider: Makenize Choi RN) gabapentin (Neurontin) capsule 300 mg [...] prior to administration, Post-op saline nasal spray ([place]; Baby [place]) 0.65 % nasal spray 2 spray 2 [...] Post-op documented in this encounter Care Teams Internal Affairs Commander Relationship Specialty Start Date End Date Karrie Phillips MD [address] [place] [address] PCP - General 03/13/22 documented as of this encounter
--- OUTSIDE RECORDS SUMMARY | 2024-04-12 16:32 | XMS_ITS | Patient Health Record ---
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) Active confirmed Problem 185816817 Fibromyalgia (M79.7) Active confirmed Problem 89492513 Essential hypertension (I10) Active confirmed Problem 033750943 Mixed hyperlipidemia (E78.2) Active confirmed Problem 61918757 Recurrent major depressive disorder, in partial remission (F33.41) Active confirmed Problem 577289952 MCTD (mixed connective tissue disease) (M35.1) Active confirmed Problem 684158989 Diabetes 1.5, 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 Plan Of Treatment No Information Insurance Providers Payer Name Payer Address Payer Phone Subscriber Number Group Number Insured Name Patient Relationship to Insured Coverage Start Date Coverage End Date AARP MCR [employer] [address] [address] [place] [address] [phone] [id number] [id number] Kandace Cole Self - patient is the insured 7 Medical (General) History Medical History History ICD Code Ferrell's esophagus CAD Connective tissue disease COPD Mild depression Diabetes Fibromyalgia Hyperlipidemia Hypertension NSAID manager intermediate use Iron deficiency anemia Osteoarthritis Raynaud's disease [...]
--- OUTSIDE RECORDS SUMMARY | 2024-04-12 16:32 | XMS_ITS | Encounter Summary ---
Author Organization [facility] Address [facility] [facility] [place] [address] [place] [address] Care Team Providers Care Skid Road Worker Name Role Phone Md Generic Willa HANEY Primary Care Provider Unavailable Miah Haney MD Primary Care Provider Unavailable Md Generic Willa HANEY Primary Care Provider Unavailable Encounter Details Date Type Department Care Team (Late st Contact Info) Description 09/10/[address] [facility] [place] [address] Adi Vieira MD [address] [place] [address] Social History Tobacco Use Types Packs/Day Years [...] on filedocumented in this encounter Care Teams Skid Road Worker Relationship Specialty Start Date End Date Miah Haney MD PCP - General 12/31/12 Miah Haney MD PCP - General 10/13/12 Miah Haney MD PCP - General 09/15/10 documented as of this encounter
--- OUTSIDE RECORDS SUMMARY | 2024-04-12 16:32 | XMS_ITS | Encounter Summary ---
Author Organization [facility] Address [facility] [place], [place] [address] [place] [address] Care Team Providers Care Bi Lead Name Role Phone Miah Montiel MD Primary Care Provider Unavailable Encounter Details Date Type Department Care Team (Late st Contact Info) Description 12/31/2012 Abstract [facility] [place] [address] Adi Vieira MD [address] [place] [address] Social History Tobacco Use Types Packs/Day Years [...] examination documented in this encounter Care Teams Bi Lead Relationship Specialty Start Date End Date Miah Montiel MD PCP - General 12/31/12 documented as of this encounter
--- OUTSIDE RECORDS SUMMARY | 2024-04-12 16:32 | XMS_ITS | Encounter Summary ---
Author Organization [facility] Address [address] [facility] [place] [address] Care Team Providers Care Cloth Stretcher Name Role Phone Unavailable Primary Care Provider Unavailabl e Encounter Details Date Type Department Care Team (Late Contact Info) Description 12/07/2009 Orders Only [facility] [address] [facility], [address] [place] [address] Dionisio Ryan MD [address] [facility] [address] [place] [address] Degeneration of Cervical Intervertebral Disc Social History Tobacco Use Types Packs/Day Years Used Date Smoking Tobacco: Never Assessed Sex and Gender Information Value Date Recorded Sex Assigned at Not on file Gender Identity Not on file Sexual Orientation Not on file documented as of this encounter Plan of Treatment Upcoming Encounters Date Type Department Care Team (Late Contact Info) Description 06/02/2024 1:45 PM [employer] Office Visit [facility] - Orthopedics [facility] [facility], [place] [phone] Deon Taylor MD [address] [place] [address] documented as of this encounter Visit Diagnoses Diagnosis Degeneration of cervical intervertebral disc- Primary documented in this encounter
--- OUTSIDE RECORDS SUMMARY | 2024-04-12 16:32 | XMS_ITS | Encounter Summary ---
Author Organization [facility] Address [address] [place] [address] Care Team Providers Care Physician Assistant Certified Name Role Phone Karrie Phillips MD Primary Care Provider [phone] Encounter Details Date Type Department Care Team (Late st Contact Info) Description 02/16/2022 Ophth Exam [facility] [address] [place] [address] Pi, Renee Brink MD [address] [place] [phone] Social History Tobacco Use Types Packs/Day [...] st Contact Info) Description 06/02/2024 1:45 PM CHARGEBACK SPECIALIST Office Visit [facility]ics [address] [place] [address], [facility] [place] [address] Deon Taylor MD [address] [place] [address] documented as of this encounter Visit Diagnoses Not on filedocumented in this encounter Care Teams Physician Assistant Certified Relationship Specialty Start Date End Date Karrie Phillips MD [address] [place] [address] PCP - General 03/13/22 documented as of this encounter
--- OUTSIDE RECORDS SUMMARY | 2024-04-12 16:32 | XMS_ITS | Encounter Summary ---
Author Organization [facility] Address [address] [facility] [place] [address] Care Team Providers Care Gauge Operator Name Role Phone Karrie Phillips MD Primary Care Provider [phone] Encounter Details Date Type Department Care Team (Latest Contact Info) Description 05/15/2022 1:27 PM COMMERCIAL LEASE ADMINISTRATOR - 05/15/2022 11:59 PM [facility] Hospital Encounter [facility] LAB OP DRAW STATION [address] [place] [address] [phone] Unknown, Provider Discharge Disposition: Home or Self [...] mouth every evening 06/08/2022 saline nasal spray ([place]; Baby [place]) 0.65 % nasal spray [place] 1 (one) spray into each nostril as [...] Contact Info) Description 06/02/2024 1:45 PM COMMERCIAL LEASE ADMINISTRATOR Office Visit [facility] - Orthopedics [address] [place] [address], [place] [place] [address] Deon Taylor MD [address] [place] [address] documented as of this encounter Procedures Procedure Name Priority Date/Time Associated Diagnosis Comments TYPE + SCREEN PANEL Routine 05/15/2022 1 :52 PM COMMERCIAL LEASE ADMINISTRATOR Preop examination CBC W/O DIFFERENTIAL Routine 05/15/2022 1:52 PM COMMERCIAL LEASE ADMINISTRATOR Preop examination BASIC METABOLIC PANEL (CALCIUM TOTAL) Routine 05/15/2022 1:52 PM COMMERCIAL LEASE ADMINISTRATOR Preop examination documented in this encounter Results * TYPE + SCREEN PANEL (05/15/2022 1:52 PM COMMERCIAL LEASE ADMINISTRATOR) [facility] Antibody Screen NEG 3:13 PM COMMERCIAL LEASE ADMINISTRATOR [facility] BLOOD BANK LAB ABO Rh A POS 05/15/2022 3:13 PM COMMERCIAL LEASE ADMINISTRATOR [facility] BLOOD BANK LAB Blood Bank BLOOD SPECIMEN / Unknown Lab Venipuncture / Unknown 05/15/2022 1:52 PM COMMERCIAL LEASE ADMINISTRATOR 05/15/2022 2:23 PM COMMERCIAL LEASE ADMINISTRATOR Provider Unknown LAB - BLOOD BANK ORD ERABLES [facility] BLOOD BANK LAB [address] [place] [address], [facility] [phone] * (ABNORMAL) BASIC METABOLIC PANEL (CALCIUM TOTAL) (05/15/2022 1:52 PM COMMERCIAL LEASE ADMINISTRATOR) [facility] BUN 20 7 - 26 mg/dL 05/15/2022 2:49 PM [facility] Creatinine 1.53(H) 0.56 - 0.96 mg/dL 05/15/2022 2:49 PM [facility] Sodium 137 136 - 145 mmol/L 05/15/2022 2:49 PM [facility] Potassium 4.6(H) 3.5 - 4.5 mmol/L 05/15/2022 2:49 PM [facility] Chloride 103 98 - 107 mmol/L 05/15/2022 2:49 PM [facility] CO2 25 22 - 29 mmol/L 05/15/2022 2:49 PM [facility] Glucose 107 70 - 115 mg/dL 05/15/2022 2:49 PM [facility] Calcium 9.4 8.4 - 10.2 mg/dL 05/15/2022 2:49 PM [facility] Anion Gap 14 8 - 18 05/15/2022 2:49 PM [facility] BUN/Creatinine Ratio 13 7 - 23 05/15/2022 2:49 PM [facility] Osmolality Calculated 287 270 - 300 mOsm/kg 05/15/2022 2:49 PM [facility] eGFR by CKD-EPI 36(L) >=90 mL/min/1.7 3 m2 05/15/2022 2:49 PM [facility] Blood BLOOD SPECIMEN / Unknown Lab Venipuncture / Unknown 05/15/2022 1:52 PM COMMERCIAL LEASE ADMINISTRATOR 05/15/2022 2:20 PM COMMERCIAL LEASE ADMINISTRATOR Provider Unknown LAB - CHEMISTRY [place] [facility] [address] [place] [address], [facility] [phone] * (ABNORMAL) CBC W/O DIFFERENTIAL (05/15/2022 1:52 PM [facility]) WBC 6.6 3.5 - 10.5 10? 3 /uL 05/15/2022 2:29 PM [facility] RBC 3.34(L) 3.80 - 5.20 10? 6 /uL 05/15/2022 2:29 PM [facility] Hemoglobin 9.9(L) 12.0 - 15.6 g/dL 05/15/2022 2:29 PM [facility] Hematocrit 30.4(L) 35.0 - 45.0 % 05/15/2022 2:29 PM [facility] MCV 91.0 80.7 - 98.3 fL 05/15/2022 2:29 PM [facility] MCH 29.6 26.7 - 34.0 pg 05/15/2022 2:29 PM [facility] MCHC 32.6 30.8 - 35.9 g/dL 05/15/2022 2:29 PM [facility] RDW-SD 43.3 36.0 - 50.0 fL 05/15/2022 2:29 PM [facility] RDW-CV 13.0 11.2 - 14.8 % 05/15/2022 2:29 PM [facility] Platelet Count 329 150 - 400 10? 3 /uL 05/15/2022 2:29 PM [facility] MPV 9.8 9.4 - 12.9 fL 05/15/2022 2:29 PM COMMERCIAL LEASE ADMINISTRATOR [facility] nRBC Absolute 0.00 0 10? 3 /uL 05/15/2022 2:29 PM COMMERCIAL LEASE ADMINISTRATOR [facility] nRBC Auto 0.0 0 /100 WBC 05/15/2022 2:29 PM COMMERCIAL LEASE ADMINISTRATOR [facility] Blood BLOOD SPECIMEN / Unknown Lab Venipuncture / Unknown 05/15/2022 1:52 PM COMMERCIAL LEASE ADMINISTRATOR 05/15/2022 2:20 PM COMMERCIAL LEASE ADMINISTRATOR Provider Unknown LAB - HEMATOLOGY ORD ERABLES [facility] [address] [place] [address] [phone] documented in this encounter Visit Diagnoses Diagnosis Preop examination Preoperative examination, unspecified documented in this encounter Care Teams Gauge Operator Relationship Specialty Start Date End Date Karrie Phillips MD [address] [place] [phone] PCP - General 03/13/22 documented as of this encounter
--- OUTSIDE RECORDS SUMMARY | 2024-04-12 16:32 | XMS_ITS | Encounter Summary ---
Author Organization [facility] Address [address] [place] [address] Care Team Providers Care Spiritual Advisor Name Role Phone Karrie Phillips MD Primary Care Provider [phone] Reason for Visit * Auth/Cert (Routine) Specialty Diagnoses / Procedures Referred By Everardo fried Referred To Contact Diagnoses Cervical myelopathy (HCC) cervical myelopathy Procedures FUSION POSTERIOR CERVICAL (PCF) Referral ID Status Reason Start Date Expiration Date Visits Re quested Visits Authorized [id number] 1 1 Encounter Details Date Type Department Care Team (Late st Contact Info) Description 06/04/2022 7:31 AM MAINTENANCE PAINTER Anesthesia Event [facility] [address] [place] [address] [place] [address] [place] [phone] Marcos Rojas Anes Asst [address] [facility] [place] [address] Anesthesia Record Procedure Summary Procedure Name Responsible [...] and heating? Not hard at all 06/04/2022 [facility] - Occupational [...] Diagnosis Codes: * Cervical myelopathy (CMS/[facility]) [G95.9] Mental Status: awake, alert, oriented, [...] Needed NOTABLE EVENTS: No notable events documented. TENANCE PAINTER * Chilo Franklin MD - 05/15/2022 12:45 [...] stairs. Denies chest pain. Denies hx of CO, heart failure, arrhythmias, strokes, seizures. Other PMH [...] procedural Anesthetic Plan was discussed with the PRO SHOP ATTENDANT and resident. Overall additional findings/comments: Discussed risks [...] This list must include ALL known prescriptions, roxm-itb-nahswboo, herbals, and vitamin/mineral/dietary (nutritional) supplements AND must [...] for the 05/15/22 encounter (Hospital Encounter) with [facility] 1 Medication Sig Last Dose ??? [...] closed fractures of facial bone, initial encounter ([facility]) 02/15/2022 Priority: Not Prioritized ??? Nausea [...] 12/07/2021 Priority: Not Prioritized ??? Systemic sclerosis ([facility]/HCC) 12/07/2021 Priority: Not Prioritized ??? Sprain of ankle 12/07/2021 Priority: Not Prioritized ??? Sciatica 12/07/2021 Priority: Not Prioritized ??? Recurrent major depression in remission ([facility]) 12/07/2021 Priority: Not Prioritized ??? Polyp of colon 12/07/2021 Priority: Not Prioritized ??? Perineal pain 12/07/2021 Priority: Not Prioritized ??? Nonexudative age-related macular degeneration 12/07/2021 Priority: Not Prioritized ??? 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 Multiple bruises 12/07/2021 Priority: Not Prioritized ??? Mixed collagen vascular disease ([facility]) 12/07/2021 Priority: Not Prioritized ??? Paronychia of toe of right foot 07/25/2021 Priority: Not Prioritized ??? Onychomycosis of toenail 07/17/2021 Priority: Not Prioritized ??? Chronic kidney disease 03/30/2019 Priority: Not Prioritized ??? Chronic obstructive pulmonary disease ([facility]) 03/30/2019 Priority: Not Prioritized ??? Hyposmolality 03/30/2019 Priority: Not Prioritized ??? Ulnar neuropathy 03/30/2019 Priority: Not Prioritized ??? Raynaud's disease 03/30/2019 Priority: Not Prioritized ??? Dyspnea on exertion 02/23/2019 Priority: Not Prioritized ??? Type 2 diabetes mellitus ([facility]) 02/23/2019 Priority: Not Prioritized ??? Type 2 diabetes mellitus with stage 3 chronic kidney disease, without long- term current use of insulin ([facility]) 02/23/2019 Priority: Not Prioritized ??? Mixed [...] Rotator Cuff Repair ??? ULNAR NERVE TRANSPOSITION DINING ROOM COORDINATOR Status: No LMP recorded (lmp unknown). Patient has had a hysterectomy. Hysterectomy OB History No obstetric history on file. Covid Vaccine: Lab Results: Recent Labs Component Name 02/15/22 1507 SARSCOV2 Not detected Recent Labs Base Name 02/16/22 0657 [id number] SPECIMENTYPE Cap Fingerstick Recent Labs Component [...] PM and Within 6 months for AICD [place] Information needed (medical physics professor, mode, indication for CIED, battery life, magnet function): If Biotronik device AND PM dependent AND surgical site above umbilicus then call local office at [phone] to schedule reprogramming of CIED (into asynchronous [...] reviewed Luiza Fernandez MD PAT evaluation end: TENANCE PAINTER documented in this encounter Procedure Notes * Marcos Rojas Anes Asst - 06/04/2022 9:09 AM CSTAssociated Order(s): ETT Placement Endotracheal Tube Placement: Patient Location: OR. Intubation Event Date/Time: 06/04/2022 7:44 AM Procedure: intubation (37002). Procedure Section: Sedation: under general anesthesia. Indications [...] Asst, Performed the procedure Provider #1: Chilo Franlkin MD. Additional Comments: Theodore CEJA performed intubation under direct supervision.. TENANCE PAINTER * Marcos Rojas Anes Asst - 06/04/2022 9:08 AM CSTAssociated Order(s): Arterial Line Placement Arterial Line Placement Procedure Note Patient Location: OR. Procedure: Arterial Line (30426). Procedure Section Indications: continuous blood pressure monitoring [...] procedure Provider #1: Marcos Rojas Anes Asst. TENANCE PAINTER documented in this encounter Miscellaneous Notes * Addendum Note - Brien Madrid DO - 06/05/2022 7:08 AM CST Addendum created 06/05/22707 by Brien Madrid DO Clinical Note Signed TENANCE PAINTER * Anesthesia Transfer of Care - Adi Lee MD - 06/04/2022 11:47 AM MAINTENANCE PAINTER ANESTHESIA TRANSFER OF CARE NOTE Today's Date: [...] from the receiving PACUteam. Adi Lee MD TENANCE PAINTER documented in this encounter Plan of Treatment Upcoming Encounters Date Type Department Care Team (Late st Contact Info) Description 06/02/2024 1:45 PM MAINTENANCE PAINTER Office Visit [facility] - Orthopedics [address] [place] [address], [facility] [place] [address] Deon Taylor MD [address] [place] [address] documented as of this encounter Procedures Procedure Name Priority Date/Time Associated Diagnosis Comments ENDOTRACHEAL TUBE NOTE Routine 06/04/2022 9:09 AM MAINTENANCE PAINTER ARTERIAL LINE NOTE Routine 06/04/2022 9: 08 AM MAINTENANCE PAINTER documented in this encounter Results * ETT LINE PERFORMABLE (06/04/2022 9:09 AM MAINTENANCE PAINTER) Narrative Marcos Rojas Anes Asst - 06/04/2022 9:09 AM MAINTENANCE PAINTER Marcos Rojas Anes Asst ? 06/04/2022 ??9:11 AM Endotracheal Tube Placement: ? Patient Location: OR. Intubation Event Date/Time: ??06/04/2022 7:44 AM Procedure: intubation (32555). Procedure Section: ?? Sedation: under general anesthesia. [...] * ARTERIAL LINE PERFORMABLE (06/04/2022 9:08 AM MAINTENANCE PAINTER) Narrative Marcos Rojas Anes Asst - 06/04/2022 9:08 AM MAINTENANCE PAINTER Marcos Rojas Anes Asst ? 06/04/2022 ??9:08 AM Arterial Line Placement Procedure Note Patient Location: OR. Procedure: Arterial Line ([id number]). Procedure Section ?? Indications: continuous blood pressure [...] Intra-op $ New Bag/Syringe 06/04/2022 7:47 AM MAINTENANCE PAINTER albumin human 5 % infusion Intravenous, CONTINUOUS PRN, Starting on Sat06/04/22 at 0920, Until Sat06/04/22 at 1144, Anesthesia Intra-op $ New Bag/Syringe 06/04/2022 9:20 AM MAINTENANCE PAINTER ceFAZolin (Ancef) 2,000 mg in 50 mL IVPB Intravenous, PRN, Starting on Sat06/04/22 at 0821, Until Sat06/04/22 at 1144, Anesthesia Intra-op $ Given 06/04/2022 8:21 AM MAINTENANCE PAINTER 2 g ePHEDrine injection Intravenous, PRN, Starting on Sat06/04/22 at 0837, Until Sat06/04/22 at 1144, Anesthesia Intra-op $ Given 06/04/2022 9:36 AM MAINTENANCE PAINTER 10 mg $ Given 06/04/2022 9:10 AM MAINTENANCE PAINTER 10 mg $ Given 06/04/2022 9:00 AM MAINTENANCE PAINTER 10 mg famotidine (Pepcid) injection Intravenous, PRN, Starting on Sat06/04/22 at 0928, Until Sat06/04/22 at 1144, Anesthesia Intra-op $ Given 06/04/2022 9:28 AM MAINTENANCE PAINTER 20 mg fentaNYL (PF) (Sublimaze) injection Intravenous, PRN, Starting on Sat06/04/22 at 0738, Until Sat06/04/22 at 1144, Anesthesia Intra-op $ Given 06/04/2022 8:48 AM MAINTENANCE PAINTER 25 mcg $ Given 06/04/2022 8:00 AM MAINTENANCE PAINTER 25 mcg $ Given 06/04/2022 7:38 AM MAINTENANCE PAINTER 50 mcg glycopyrrolate (Robinul) injection Intravenous, PRN, Starting on Sat06/04/22 at 0926, Until Sat06/04/22 at 1144, Anesthesia Intra-op $ Given 06/04/2022 9:26 AM MAINTENANCE PAINTER 0.2 mg HYDROmorphone HCl-NaCl 2-0.9 MG/10ML-% SOSY Intravenous, PRN, Starting on Sat06/04/22 at 1058, Until Sat06/04/22 at 1144, Anesthesia Intra-op $ Given 06/04/2022 11:48 AM MAINTENANCE PAINTER 0.6 mg $ Given 06/04/2022 11:43 AM MAINTENANCE PAINTER 0.6 mg $ Given 06/04/2022 10:58 AM MAINTENANCE PAINTER 0.4 mg isolyte-S pH 7.4 infusion Intravenous, CONTINUOUS PRN, Starting on Sat06/04/22 at 0936, Until Sat06/04/22 at 1144, Anesthesia Intra-op $ New Bag/Syringe 06/04/2022 9:36 AM MAINTENANCE PAINTER lactated ringers infusion at 20 mL/hr, Intravenous, PRE-OP CONTINUOUS, Starting on Sat06/04/22 at 0545, Until Sat06/04/22 at 1314, Pre-op Restarted 06/04/2022 9:36 AM MAINTENANCE PAINTER $ New Bag/Syringe 06/04/2022 6:42 AM MAINTENANCE PAINTER 20 mL/ hr lidocaine HCl (PF) (Xylocaine MPF) 2 % injection Intravenous, PRN, Starting on Sat06/04/22 at 0739, Until Sat06/04/22 at 1144, Anesthesia Intra-op $ Given 06/04/2022 7:39 AM MAINTENANCE PAINTER 100 mg midazolam (Versed) injection Intravenous, PRN, Starting on Sat06/04/22 at 0816, Until Sat06/04/22 at 1144, Anesthesia Intra-op $ Given 06/04/2022 8:16 AM MAINTENANCE PAINTER 1 mg $ Given 06/04/2022 7:31 AM MAINTENANCE PAINTER 1 mg ondansetron (Zofran) injection Intravenous, PRN, Starting on Sat06/04/22 at 1055, Until Sat06/04/22 at 1144, Anesthesia Intra-op $ Given 06/04/2022 10:55 AM MAINTENANCE PAINTER 4 mg phenylephrine 100 mcg/mL injection Intravenous, PRN, Starting on Sat06/04/22 at 0813, Until Sat06/04/22 at 1144, Anesthesia Intra-op $ Given 06/04/2022 11:19 AM MAINTENANCE PAINTER 100 mcg $ Given 06/04/2022 11:05 AM MAINTENANCE PAINTER 200 mcg $ Given 06/04/2022 10:19 AM MAINTENANCE PAINTER 200 mcg phenylephrine 20 mg in 250 mL NaCl 0.9% infusion Intravenous, CONTINUOUS PRN, Starting on Sat06/04/22 at 0749, Until Sat06/04/22 at 1144, Anesthesia Intra-op Rate Change 06/04/2022 11:30 AM MAINTENANCE PAINTER 0.1 mcg/kg/min 4.538 mL/hr Rate Change 06/04/2022 11:24 AM MAINTENANCE PAINTER 0.3 mcg/kg/min 13.613 mL/hr Rate Change 06/04/2022 8:54 AM MAINTENANCE PAINTER 0.4 mcg/kg/min 18.15 mL /hr propofol (Diprivan) infusion Intravenous, CONTINUOUS PRN, Starting on Sat06/04/22 at 0749, Until Sat06/04/22 at 1144, Anesthesia Intra-op Rate Change 06/04/2022 10:40 AM MAINTENANCE PAINTER 180 mcg/kg/min 65.34 mL/hr Rate Change 06/04/2022 10:36 AM MAINTENANCE PAINTER 160 mcg/kg/min 58.08 m L/hr Rate Change 06/04/2022 10:33 AM MAINTENANCE PAINTER 150 mcg/kg/min 54.45 m L/hr propofol (Diprivan) injection Intravenous, PRN, Starting on Sat06/04/22 at 0739, Until Sat06/04/22 at 1144, Anesthesia Intra-op $ Given 06/04/2022 7:40 AM MAINTENANCE PAINTER 50 mg $ Given 06/04/2022 7:39 AM MAINTENANCE PAINTER 100 mg remifentanil (Ultiva) 2 mg in 0.9% NaCl IV 50 mL infusion Intravenous, CONTINUOUS PRN, Starting on Sat06/04/22 at 0749, Until Sat06/04/22 at 1144, Anesthesia Intra-op Rate Change 06/04/2022 11:04 AM MAINTENANCE PAINTER 0.02 mcg/kg/min 1.815 mL/hr Rate Change 06/04/2022 10:59 AM MAINTENANCE PAINTER 0.03 mcg/kg/min 2.723 mL/hr Rate Change 06/04/2022 10:54 AM MAINTENANCE PAINTER 0.1 mcg/kg/min 9.075 m L/hr succinylcholine (Anectine) injection Intravenous, PRN, Starting on Sat06/04/22 at 0741, Until Sat06/04/22 at 1144, Anesthesia Intra-op $ Given 06/04/2022 7:41 AM MAINTENANCE PAINTER 100 mg documented in this encounter Care Teams Spiritual Advisor Relationship Specialty Start Date End Date Karrie Phillips MD [address] [place] [address] PCP - General 03/13/22 documented as of this encounter
--- OUTSIDE RECORDS SUMMARY | 2024-04-12 16:32 | XMS_ITS | Encounter Summary ---
Author Organization [facility] Address [address] [place] [address] Care Team Providers Care Category Specialist Name Role Phone Karrie Phillips MD Primary Care Provider [phone] Reason for Visit * Reason Comments Preop Exam Encounter Details Date Type Department Care Team (Late st Contact Info) Description 05/15/2022 2:30 PM SUPERVISOR SHOW OPERATIONS Office Visit [facility] - [facility]ics [address] [place] [address], [place] [address] Deon Taylor MD [address] [place] [phone] Cervical myelopathy (HCC) (Primary Dx) Social History [...] (135 lb 12.8 oz) 05/15/2022 1:57 PM SUPERVISOR SHOW OPERATIONS Height 154.9 cm (5' 1 ) 05/15/2022 1:57 PM SUPERVISOR SHOW OPERATIONS Body Mass Index 25.66 05/15/2022 1:57 PM SUPERVISOR SHOW OPERATIONS documented in this encounter Functional Status Functional [...] for further surgery, blood clots, PE, stroke, SD, paralysis, . After we reviewed of the risks andbenefits the patient wished to proceed with the surgery as planned. PROMIS Pain Interference 05/08/2022 03/13/2022 PROMIS PI Score 74 (severe) 67 (moderate) PROMIS Physical Function 05/08/2022 03/13/2022 PROMIS PF Score 24 (severe dysfunction) 25 (severe dysfunction) This note was transcribed using iNEWiT dictation software and may include inaccuracies in show operations supervisor which were unrecognized and not corrected. Deon Taylor MD RVISOR SHOW OPERATIONS * Aleyda Rebollar MD - 05/15/2022 2:08 PM CST [facility] Orthopedic Spine Surgery Clinic Note Kandace Cole, 72 year old, female : 1950 CSN: [id number] Primary Care Physician: Karrie Phillips MD, MD [...] 200 MG tablet ??? saline nasal spray ([place]; Baby [place]) 0.65 % nasal spray No current facility-administered [...] needfor further surgery, blood clots, PE, stroke, SD, paralysis, . After we reviewed of the risks a nd benefits the patient wished to proceed with the surgery as planned. - Will plan to proceed with C3-T2 PISF with C5-6 laminectomies - Follow up for surgery Aleyda Rebollar MD 05/15/2022 RVISOR SHOW OPERATIONS documented in this encounter Plan of Treatment Upcoming Encounters Date Type Department Care Team (Late st Contact Info) Description 06/02/2024 1:45 PM SUPERVISOR SHOW OPERATIONS Office Visit [facility] - Orthopedics [address] [place] [address], [place] [address] Deon Taylor MD [address] [place] [phone] documented as of this encounter Visit Diagnoses Diagnosis Cervical myelopathy (HCC)- Primary Cervical spondylosis with myelopathy documented in this encounter Care Teams Category Specialist Relationship Specialty Start Date End Date Karrie Phillips MD [address] [place] [phone] PCP - General 03/13/22 documented as of this encounter
--- OUTSIDE RECORDS SUMMARY | 2024-04-12 16:32 | XMS_ITS | Encounter Summary ---
Author Organization [facility] Address [facility] [place] [address] [place] [address] Care Team Providers Care Truck Repair Supervisor Name Role Phone Md Generic Willa HANEY Primary Care Provider Unavailable Miah Haney MD Primary Care Provider Unavailable Md Generic Willa HANEY Primary Care Provider Unavailable Encounter Details Date Type Department Care Team (Late st Contact Info) Description 09/11/2008 Abstract [facility] [place] [address] Adi Vieira MD [address] [place] [address] Social History Tobacco Use Types Packs/Day Years [...] on filedocumented in this encounter Care Teams Truck Repair Supervisor Relationship Specialty Start Date End Date Miah Haney MD PCP - General 12/31/12 Miah Haney MD PCP - General 10/13/12 Miah Haney MD PCP - General 09/15/10 documented as of this encounter
--- OUTSIDE RECORDS SUMMARY | 2024-04-12 16:32 | XMS_ITS | Encounter Summary ---
Author Organization [facility] Address [address] [place] [address] Care Team Providers Care Disaster Recovery Manager Name Role Phone Unavailable Primary Care Provider Unavailabl e Reason for Visit * Reason Comments Pain Neck Encounter Details Date Type Department Care Team (Late st Contact Info) Description 12/07/2009 1:45 PM CDT Office Visit [facility] [address] [facility], [address] [place] [address] Dionisio Ryan MD [address] [address] Degeneration of Cervical Intervertebral Disc (Primary Dx) [...] on: 05/01/2010 Modules accepted: Level of Service O OPERATOR * Lynn Romero - 05/01/2010 10:59 AM CST Comment: Corrected CPT 33487 not allowed with MCR O OPERATOR * Dionisio Ryan MD - 12/07/2009 1:43 [...] st Contact Info) Description 06/02/2024 1:45 PM FLEXO OPERATOR Office Visit [facility] - Orthopedics [address] [place] [address], [place] [address] Deon Taylor MD [address] [place] [address] documented as of this encounter Visit Diagnoses Diagnosis Degeneration of cervical intervertebral disc- Primary documented in this encounter
--- OUTSIDE RECORDS SUMMARY | 2024-04-12 16:32 | XMS_ITS | Encounter Summary ---
Author Organization [facility] Address [address] [place] [address] Care Team Providers Care Weaving Teacher Name Role Phone Karrie Phillips MD Primary Care Provider [phone] Encounter Details Date Type Department Care Team [...] Contact Info) Description 06/02/2024 1:45 PM CORRECTIONAL CASE RECORDS SUPERVISOR Office Visit [facility] [address] [place] [address], [facility] [place] [address] Deon Taylor MD [address] [place] [address] [phone] documented as of this encounter Visit Diagnoses Not on filedocumented in this encounter Care Teams Weaving Teacher Relationship Specialty Start Date End Date Karrie Phillips MD [address] [place] [phone] PCP - General 03/13/22 documented as of this encounter
--- OUTSIDE RECORDS SUMMARY | 2024-04-12 16:32 | XMS_ITS | Encounter Summary ---
Author Organization [facility] Address [address] [place] [address] Care Team Providers Care Webfocus Developer Name Role Phone Karrie Phillips MD Primary Care Provider [phone] Encounter Details Date Type Department Care Team (Latest Contact Info) Description 03/13/2022 12:49 PM PRIVACY OFFICER - 03/13/2022 11:59 PM [facility] Hospital Encounter [facility] CSM [address] [facility] [place] [id number] Deon Taylor MD [address] [place] [address] Discharge Disposition: Home or Self Care Social [...] TABLET BY MOUTH DAILY saline nasal spray (Imperial; Baby [place]) 0.65 % nasal spray [place] 1 (one) spray into each nostril as [...] st Contact Info) Description 06/02/2024 1:45 PM PRIVACY OFFICER Office Visit [facility] [address] [place] [address], [facility] [place] [address] Deon Taylor MD [address] [place] [address] documented as of this encounter Procedures Procedure Name Priority Date/Time Associated Diagnosis Comments XR CERVICAL SPINE 2 OR 3VW Routine 03/13/2022 1:02 PM PRIVACY OFFICER Neck pain documented in this encounter Results * XR CERVICAL SPINE 2 OR 3VW (03/13/2022 1:02 PM PRIVACY OFFICER) Anatomical Region Laterality Modality Spine Radiographic Vivian ging 03/13/2022 1:13 PM PRIVACY OFFICER Impressions 03/13/2022 1:20 PM PRIVACY OFFICER IMPRESSION: There is straightening of the cervical [...] 03/13/2022 1:20 PM Narrative 03/13/2022 1:20 PM PRIVACY OFFICER PROCEDURE: ??XR CERVICAL SPINE 2 OR 3VW, DATE/TIME OF EXAM: ??03/13/2022 1:03 PM, LOCATION ??[facility] INDICATION: M54.2: Neck pain ADDITIONAL CLINICAL INFORMATION: Ordering Provider Reason For Exam: ??neck pain COMPARISON: CT dated 02/15/2022. Procedure Note Alejo Ahuja MD - 03/13/2022 PROCEDURE: XR CERVICAL SPINE 2 OR 3VW, DATE/TIME OF EXAM: 21:03 PM, LOCATION [facility] INDICATION: M54.2: Neck pain ADDITIONAL CLINICAL INFORMATION: [...] Cervicalgia documented in this encounter Care Teams Webfocus Developer Relationship Specialty Start Date End Date Karrie Phillips MD [address] [place] [address] PCP - General 03/13/22 documented as of this encounter
--- OUTSIDE RECORDS SUMMARY | 2024-04-12 16:32 | XMS_ITS | Encounter Summary ---
Author Organization [facility] Address [address] [facility] [place] [address] Care Team Providers Care Slime Plant Operator Name Role Phone Karrie Phillips MD Primary Care Provider [phone] Encounter Details Date Type Department Care Team (Late st Contact Info) Description 02/15/2022 Ophth Exam [facility] [address] [place] [phone] Makenzie Sin DO [address] [place] [phone] Social History Tobacco Use Types Packs/Day Years [...] Contact Info) Description 06/02/2024 1:45 PM AIRCRAFT LAYOUT WORKER Office Visit [facility] [address] [facility], [place] [address] Deon Taylor MD [facility] [place] [address] documented as of this encounter Visit Diagnoses Not on filedocumented in this encounter Additional Health Concerns Infection Onset Date Last Indicated Resolved Time COVID-19 Under Investigation 02/15/2022 02/15/2022 02/15/2022 3:59 PM AIRCRAFT LAYOUT WORKER documented as of this encounter Care Teams Slime Plant Operator Relationship Specialty Start Date End Date Karrie Phillips MD [address] [place] [address] PCP - General 03/13/22 documented as of this encounter
--- OUTSIDE RECORDS SUMMARY | 2024-04-12 16:32 | XMS_ITS | Encounter Summary ---
Author Organization [facility] Address [address] [place] [address] Care Team Providers Care Manager Support Services Name Role Phone Unavailable Primary Care Provider Unavailabl e Reason for Visit * Reason Onset Date Comments Consultation 02/14/2022 Encounter Details Date Type Department Care Team (Late st Contact Info) Description 02/14/2022 Telephone [facility] [address] [place] [address] Deon Perez MD [address] [facility] [place] [address] Consultation Social History Tobacco Use [...] CST ENT Telephone Note Spoke to [facility] center around 7:06PM regarding patient Kandace Cole who sustained facial trauma after a fall and presented to [facility] ED. Discussed with provider at OSH patient [...] Otolaryngology - Head and Neck Surgery 02/14/2022 O MASK CLEANER documented in this encounter Plan of Treatment Upcoming Encounters Date Type Department Care Team (Late st Contact Info) Description 06/02/2024 1:45 PM PHOTO MASK CLEANER Office Visit [facility] [address] [place] [address], [place] [address] Deon Taylor MD [address] [place] [address] documented as of this encounter Visit Diagnoses Not on filedocumented in this encounter
--- OUTSIDE RECORDS SUMMARY | 2024-04-12 16:32 | XMS_ITS | Encounter Summary ---
Author Organization [facility] Address [facility] [place] [address] [place] [address] Care Team Providers Care Sql Database Programmer Name Role Phone Md Generic Willa HANEY Primary Care Provider Unavailable Miah Haney MD Primary Care Provider Unavailable Md Generic Willa HANEY Primary Care Provider Unavailable Encounter Details Date Type Department Care Team (Late st Contact Info) Description 09/15/2010 Abstract [facility] [place] [address] Adi Vieira MD [address] [place] [address] Social History Tobacco Use Types Packs/Day Years [...] esophagus documented in this encounter Care Teams Sql Database Programmer Relationship Specialty Start Date End Date Miah Haney MD PCP - General 12/31/12 Miah Haney MD PCP - General 10/13/12 Miah Haney MD PCP - General 09/15/10 documented as of this encounter
--- OUTSIDE RECORDS SUMMARY | 2024-04-12 16:32 | XMS_ITS | Clinical Summary ---
Author Organization [facility] Address [facility] [facility] [place] [address] [place] [address] Care Team Providers Care Bail Bondsman Name Role Phone None, Provider Primary Care [...] Comments Blood Pressure 102/68 05/27/2022 1:18 PM VIBRATING SCREEN OPERATOR Pulse 70 05/27/2022 1:18 PM VIBRATING SCREEN OPERATOR Temperature 36.8 ??C (98.3 ??F) 05/27/2022 1:18 PM CS T Respiratory Rate 18 05/27/2022 1:18 PM VIBRATING SCREEN OPERATOR Oxygen Saturation 100% 05/27/2022 1:18 PM VIBRATING SCREEN OPERATOR Inhaled Oxygen Concentration - - Weight 64.7 kg (142 lb 10.2 oz) 05/27/2022 1:18 PM VIBRATING SCREEN OPERATOR Height 154.9 cm (5' 1 ) 05/27/2022 1:18 PM VIBRATING SCREEN OPERATOR Body Mass Index 26.95 05/27/2022 1:18 PM VIBRATING SCREEN OPERATOR Plan of Treatment Health Maintenance Due Date [...] to complete this topic Insurance Care Teams Bail Bondsman Relationship Specialty Start Date End Date None, Provider, PCP - General UNKNOWN PHYSICIAN SPECIALTY 05/27/22
--- OUTSIDE RECORDS SUMMARY | 2024-04-12 16:32 | XMS_ITS | Encounter Summary ---
Author Organization [facility] Address [facility] [facility] [place] [address] [place] [address] Care Team Providers Care Structural Steel Erector Name Role Phone None, Provider MD Primary Care Provider Unavaila ble Reason for Referral * (Routine) - Closed Specialty Diagnoses / Procedures Referred By Contac t Referred To Contact Procedures LACERATION REPAIR Radha Salcedo MD [address] [place] [address] Phone: tel: fax: Referral ID Status Reason Start Date Expiration Date Visits Re quested Visits Authorized [id number] Closed 05/27/2022 05/27/2023 1 1 MAKER * Imaging (Emergency) - Closed Specialty Diagnoses / Procedures Referred By Contac t Referred To Contact RADIOLOGY Procedures CT CERV SPINE WO Radha Cortes MD [address] [place] [address] Phone: tel: fax: Referral ID Status Reason Start Date Expiration Date Visits Re quested Visits Authorized [id number] Closed 05/27/2022 05/27/2023 1 1 MAKER * Imaging (Emergency) - Closed Specialty Diagnoses / Procedures Referred By Contac t Referred To Contact RADIOLOGY Procedures CT HEAD WO Radha Cortes MD 1 [place] [address] Phone: tel: fax: Referral ID Status Reason Start Date Expiration Date Visits Re quested Visits Authorized [id number] Closed 05/27/2022 05/27/2023 1 1 MAKER Reason for Visit * Reason Comments Fall Head Injury Arm Pain Encounter Details Date Type Department Care Team (Late st Contact Info) Description 05/27/2022 1:17 PM PLUG MAKER - 05/27/2022 4:30 PM PLUG MAKER Emergency [facility] [place] [address] Radha Salcedo MD [address] [facility] [place] [address] Fall; Head Injury; Arm Pain [...] Coronavirus/COVID-19? No / Unsure 05/27/2022 1:34 PM PLUG MAKER documented as of this encounter Last Filed Vital Signs Vital Sign Reading Time Taken Comments Blood Pressure 102/68 05/27/2022 1:18 PM PLUG MAKER Pulse 70 05/27/2022 1:18 PM PLUG MAKER Temperature 36.8 ??C (98.3 ??F) 05/27/2022 1:18 PM CS T Respiratory Rate 18 05/27/2022 1:18 PM PLUG MAKER Oxygen Saturation 100% 05/27/2022 1:18 PM PLUG MAKER Inhaled Oxygen Concentration - - Weight 64.7 kg (142 lb 10.2 oz) 05/27/2022 1:18 PM PLUG MAKER Height 154.9 cm (5' 1 ) 05/27/2022 1:18 PM PLUG MAKER Body Mass Index 26.95 05/27/2022 1:18 PM PLUG MAKER documented in this encounter Discharge Instructions * Attachments The following attachments cannot be sent through Care Everywhere. * Laceration Repair With [place] Discharge Instructions (Jamaican) * Wound Care (Jamaican) * Laceration Repair (Jamaican) * Joint Pain (Jamaican) * Minor Head Injury (Jamaican) documented in this encounter ED Notes * [...] Patient verbalized understanding of the discharge instructions. MAKER * Renetta Clarke RN - 05/27/2022 3:14 PM CST Pt's hair on back of the head is matted with blood at this time. Hair and skin cleaned with normal saline per doctors request. Wound now visible. Provider notified for re-evaluation of head wound nowthat it is visible MAKER * Radha Salcedo MD - 05/27/2022 1:50 PM CSTAssociated Order(s): Lac Repair Chief Complaint Chief Complaint Patient presents with ??? Fall ??? Head Injury ??? Arm Pain History of Present Illness History provided by: Patient, medical records and EMS personnel compounding scaler used: No Trauma Mechanism of injury: fall [...] LT MIN 3V Final Result by User, [id number] (05/27 1447) EXAMINATION: XR WRIST LT MIN [...] SHOULDER LT 3V Final Result by User, [id number] (05/27 9446) EXAMINATION: XR SHOULDER LT 3V HISTORY: Pain [...] SHOULDER RT 3V Final Result by User, [id number] (05/27 5214) Examination: XR SHOULDER RT 3V Exam time: [...] RT MIN 3V Final Result by User, [email or web address] (05/27 9166) IMAGING STUDIES: XR WRIST RT MIN 3V [...] be of benefit. Referred By: Interpreted By: Daneil Carlson MD, 05/27/2022 2:43 PM XR HUMERUS RT MIN 2V Final Result by User, [id number] (05/27 5500) Examination: XR HUMERUS RT MIN 2V Exam [...] HIP JUAN 2V+PELVIS Final Result by User, [email or web address] (05/27 5743) Date: 05/27/2022 2:04 PM Exam: XR HIP [...] HEAD WO CON Final Result by User, [id number] (05/27 1414) CT HEAD WITHOUT CONTRAST Exam [...] SPINE WO CON Final Result by User, [id number] (05/27 1417) CT CERVICAL SPINE WITHOUT CONTRAST [...] of the C7-T1 level. These result in euxr-gq-rqcbingq central cervical stenosis. The facets are normally [...] poor cosmetic result and poor wound healing [place] protocol: Patient identity confirmed: Verbally with patient, arm band and hospital- assigned identification number Laceration details: Location: Scalp Length (cm): 1 Depth (mm): 1 Treatment: Area cleansed with: Saline Skin repair: Repair method: [place] Number of mahesh: 1 Repair type: Repair type: Simple Post-procedure details: Dressing: Open (no dressing) Procedure completion: Tolerated well, no immediate complications Date/Time: 05/27/2022 6:09 PM Performed by: Radha Salcedo MD Authorized by: Radha Salcedo MD Consent: Consent obtained: Verbal Consent given by: Patient Risks discussed: Infection, pain, need for additional repair, poor cosmetic result and poor wound healing [place] protocol: Patient identity confirmed: Verbally with patient, arm band and hospital- assigned identification number Laceration details: Location: Scalp Length (cm): 1 Depth (mm): 1 Treatment: Area cleansed with: Saline Skin repair: Repair method: [place] Number of mahesh: 1 Repair type: Repair type: Simple Post-procedure details: Dressing: Open (no dressing) Procedure completion: Tolerated well, no immediate complications Date/Time: 05/27/2022 6:10 PM Performed by: Radha Salcedo MD Authorized by: Radha Salcedo MD Consent: Consent obtained: Verbal Consent given by: Patient Risks discussed: Infection, pain, need for additional repair, poor cosmetic result and poor wound healing [place] protocol: Patient identity confirmed: Verbally with patient, [...] by the physician. Radha Salcedo MD 05/27/221810 MAKER * Renetta Clarke RN - 05/27/2022 1:42 PM CST Pt's shirt cut off of pt at this time MAKER * Renetta Clarke RN - 05/27/2022 1:22 PM CST Pt to ED via EMS from [facility] [employer] following a fall. Pt states she lost [...] episodes of emesis en route to hospital. MAKER * Olimpia Munoz RN - 05/27/2022 1:17 PM CST Bed: 18 Expected date: Expected time: Means of arrival: Comments: [id number] MAKER documented in this encounter Plan of Treatment Not on file documented as of this encounter Procedures Procedure Name Priority Date/Time Associated Diagnosis Comments LACERATION REPAIR Routine 05/27/2022 6:0 8 PM PLUG MAKER XR WRIST LT MIN 3V STAT 05/27/2022 2: 38 PM PLUG MAKER XR SHOULDER RT 3V STAT 05/27/2022 2:3 6 PM PLUG MAKER XR SHOULDER LT 3V STAT 05/27/2022 2:3 6 PM PLUG MAKER XR WRIST RT MIN 3V STAT 05/27/2022 2: 36 PM PLUG MAKER XR HUMERUS RT MIN 2V STAT 05/27/2022 2:36 PM PLUG MAKER XR HIP JUAN 2V+PELVIS STAT 05/27/2022 2:[address] HEAD WO CON STAT 05/27/2022 2:[address] CERV SPINE WO CON STAT 05/27/2022 2:08 PM PLUG MAKER documented in this encounter Results * Lac Repair (05/27/2022 6:08 PM PLUG MAKER) Radha Cornejo MD - 05/27/2022 6:08 PM PLUG MAKER Radha Salcedo MD ? 05/27/2022 ??6:11 PM Lac Repair Date/Time: 05/27/2022 6:08 PM Performed by: Rahda Salcedo MD Authorized by: Radha Salcedo MD Consent: ??Consent obtained: ??Verbal ??Consent given by: ??Patient ??Risks discussed: ??Infection, pain, need for additional repair, poor cosmetic result and poor wound healing [place] protocol: ??Patient identity confirmed: ??Verbally with patient, arm band and hospital-assigned identification number Laceration details: ??Location: ??Scalp ??Length (cm): ??1 ??Depth (mm): ??1 Treatment: ??Area cleansed with: ??Saline Skin repair: ??Repair method: ??[place] ??Number of mahesh: ??1 Repair type: ??Repair type: ??Simple Post-procedure details: ??Dressing: ??Open (no dressing) ??Procedure completion: ??Tolerated well, no immediate complications us Radha Salcedo MD PROCEDURE/MINOR SURGICAL ORDERA BLES Final Result * XR WRIST LT MIN 3V (05/27/2022 2:38 PM PLUG MAKER) Anatomical Region Laterality Modality Wrist Radiographic Vivian ging 05/27/2022 2:38 PM PLUG MAKER Impressions 05/27/2022 2:40 PM PLUG MAKER IMPRESSION: 1. ??No acute fracture identified. 2. ??Mild widening of the scapholunate interval. 3. ??Other chronic or nonurgent findings as described above. Referred By: ?? Interpreted By: Jose Alberto Reeves MD, 05/27/2022 2:38 PM Narrative 05/27/2022 2:40 PM PLUG MAKER EXAMINATION: XR WRIST LT MIN 3V HISTORY: [...] XR HIP JUAN 2V+PELVIS (05/27/2022 2:36 PM PLUG MAKER) Anatomical Region Laterality Modality Hip, Pelvis Radiographic Vivian ging 05/27/2022 2:13 PM PLUG MAKER Impressions 05/27/2022 2:15 PM PLUG MAKER Impression: No acute osseous abnormality. Ordered By: RADHA SALCEDO Interpreted By: Sky Wayne Jr, MD, 05/27/2022 2:13 PM Narrative 05/27/2022 2:15 PM PLUG MAKER Date: 05/27/2022 2:04 PM Exam: XR HIP [...] HUMERUS RT MIN 2V (05/27/2022 2:36 PM PLUG MAKER) Anatomical Region Laterality Modality Humerus Radiographic Vivian ging 05/27/2022 2:41 PM PLUG MAKER Impressions 05/27/2022 2:45 PM PLUG MAKER IMPRESSION: No acute abnormality of the mid and distal humerus. Referred By: ?? Interpreted By: Shadi Franklin MD, 05/27/2022 2:41 PM Narrative 05/27/2022 2:45 PM PLUG MAKER Examination: XR HUMERUS RT MIN 2V Exam [...] WRIST RT MIN 3V (05/27/2022 2:36 PM PLUG MAKER) Anatomical Region Laterality Modality Wrist Radiographic Vivian ging 05/27/2022 2:43 PM PLUG MAKER Impressions 05/27/2022 2:44 PM PLUG MAKER IMPRESSION: 1. ??There is no evidence of [...] 05/27/2022 2:43 PM Narrative 05/27/2022 2:44 PM PLUG MAKER IMAGING STUDIES: ??XR WRIST RT MIN 3V [...] XR SHOULDER RT 3V (05/27/2022 2:36 PM PLUG MAKER) Anatomical Region Laterality Modality Shoulder Radiographic Vivian ging 05/27/2022 2:39 PM PLUG MAKER Impressions 05/27/2022 2:44 PM PLUG MAKER IMPRESSION: 1. ??There is a high riding [...] 05/27/2022 2:39 PM Narrative 05/27/2022 2:44 PM PLUG MAKER Examination: XR SHOULDER RT 3V Exam time: [...] XR SHOULDER LT 3V (05/27/2022 2:36 PM PLUG MAKER) Anatomical Region Laterality Modality Shoulder Radiographic Vivian ging 05/27/2022 2:40 PM PLUG MAKER Impressions 05/27/2022 2:44 PM PLUG MAKER IMPRESSION: 1. ??No acute osseous abnormality identified. 2. ??Other chronic or nonurgent findings as described above. Referred By: ?? Interpreted By: Jose Alberto Reeves MD, 05/27/2022 2:40 PM Narrative 05/27/2022 2:44 PM PLUG MAKER EXAMINATION: XR SHOULDER LT 3V HISTORY: Pain [...] CERV SPINE WO CON (05/27/2022 2:08 PM PLUG MAKER) Anatomical Region Laterality Modality Spine Computed Tomogra phy 05/27/2022 2:13 PM PLUG MAKER Impressions 05/27/2022 2:15 PM PLUG MAKER IMPRESSION: 1.Extensive degenerative changes. No evidence of acute injury Ordered By: RADHA SALCEDO Interpreted By: Deni Martínez MD, 05/27/2022 2:13 PM Narrative 05/27/2022 2:[address] CERVICAL SPINE WITHOUT CONTRAST CLINICAL HISTORY: [...] of the C7-T1 level. These result in wqik-qc-qmpxcpmx central cervical stenosis. The facets are normally [...] of the C7-T1 level. These result in pbee-hz-fiuskcrogapqeeo cervical stenosis. The facets are normally aligned [...] CT HEAD WO CON (05/27/2022 2:08 PM PLUG MAKER) Anatomical Region Laterality Modality Head Computed Tomogra phy 05/27/2022 2:12 PM PLUG MAKER Impressions 05/27/2022 2:13 PM PLUG MAKER IMPRESSION: Left maxillary sinusitis. No evidence of acute intracranial injury Ordered By: RADHA SALCEDO Interpreted By: Deni Martínez MD, 05/27/2022 2:12 PM Narrative 05/27/2022 2:[address] HEAD WITHOUT CONTRAST Exam date: 05/27/2022 [...] 05/27/22 at 1345 Given 05/27/2022 1:43 PM PLUG MAKER 2 mg morphine injection 2 mg 2 mg, Intravenous, Once, 1 dose, On 05/27/22 at 1445 Given 05/27/2022 2:54 PM PLUG MAKER 2 mg ondansetron (ZOFRAN) injection 4 mg 4 mg, Intravenous, Once, 1 dose, On 05/27/22 at 1345, IV push over 2-5 minutes. Given 05/27/2022 1:43 PM PLUG MAKER 4 mg documented in this encounter Active and Recently Administered Medications Times are shown in PLUG MAKER. Scheduled Medication Order 05/25/2022 05/26/2022 05/27/2022 morphine [...] RN) documented in this encounter Care Teams Structural Steel Erector Relationship Specialty Start Date End Date None, Provider, MD PCP - General UNKNOWN PHYSICIAN SPECIALTY 05/27/22 documented as of this encounter
--- OUTSIDE RECORDS SUMMARY | 2024-04-12 16:32 | XMS_ITS | Encounter Summary ---
Author Organization [facility] Address [address] [place] [address] Care Team Providers Care Instruction Librarian Name Role Phone Unavailable Primary Care Provider Unavailabl e Reason for Visit * Reason Comments Transitional Care Encounter Details Date Type Department Care Team (Late st Contact Info) Description 02/20/2022 Transitional Care Transitional Care at [address] [address] Madhavi Vega, command and control specialist Social History Tobacco Use Types Packs/Day Years [...] telephone: Patient with recent IP discharge from [facility] on [facility]19[facility]22. RN attempted to reach Kandace Douglas today by telephone ([phone]) to complete 48 hour post discharge follow-up contact. RN was unable to reach Kandace at this time and this RN left voice message, encouraging patient to call this press writer back when available to provide update since last follow-up contact. RN will await call back from and will continue to follow Patient for [facility] appointment. Call Duration: 1 min Madhavi Vega RN, BSN Aoc Operations Intelligence Chief, [facility] Office: [phone] 02/20/2022 OR MANAGER MERGERS & ACQUISITIONS documented in this encounter Plan of Treatment Upcoming Encounters Date Type Department Care Team (Late st Contact Info) Description 06/02/2024 1:45 PM SENIOR MANAGER MERGERS & ACQUISITIONS Office Visit [facility] - Orthopedics [address] [place] [address], [facility] [place] [address] Deon Taylor MD [address] [phone] documented as of this encounter Visit Diagnoses Not on filedocumented in this encounter
--- OUTSIDE RECORDS SUMMARY | 2024-04-12 16:32 | XMS_ITS | Encounter Summary ---
Author Organization [facility] Address [facility]. [place], [place] [address] [place] [address] Care Team Providers Care Medicare Specialist Name Role Phone None, Provider Primary Care [...] Coronavirus/COVID-19? No / Unsure 05/27/2022 1:34 PM PRESS CLIPPINGS CUTTER AND PASTER documented as of this encounter Plan of Treatment Not on file documented as of this encounter Visit Diagnoses Not on filedocumented in this encounter Care Teams Medicare Specialist Relationship Specialty Start Date End Date None, Provider, PCP - General UNKNOWN PHYSICIAN SPECIALTY 05/27/22 documented as of this encounter
--- OUTSIDE RECORDS SUMMARY | 2024-04-12 16:33 | XMS_ITS | Encounter Summary ---
Author Organization [facility] Address [facility] [place] [address] [place] [address] Care Team Providers Care Fan Blade Aligner Name Role Phone Miah Montiel MD Primary Care Provider Unavailable Miah Montiel MD Primary Care Provider Unavailable Miah Montiel MD Primary Care Provider Unavailable Encounter Details Date Type Department Care Team (Late st Contact Info) Description 09/27/1995 Abstract [place] [address] Miah Montiel MD Social History Tobacco Use [...] on filedocumented in this encounter Care Teams Fan Blade Aligner Relationship Specialty Start Date End Date Miah Montiel MD PCP - General 12/31/12 Miah Montiel MD PCP - General 10/13/12 Miah Montiel MD PCP - General 09/15/10 documented as of this encounter
--- OUTSIDE RECORDS SUMMARY | 2024-04-12 16:33 | XMS_ITS | Encounter Summary ---
Author Organization [facility] Molly uticharlene Address [address] [place] [address] Phone Care Team Providers Care Terrapin Fisher Name Role Phone Karrie Tompkins MD Primary Care Provider [phone] Encounter Details Date Type Department Care Team (Late st Contact Info) Description 09/01/2020 Orders Only [facility] Nephrology and Hypertension [facility], [address] [address] Aubrey Reyna MD [address] [facility], [address] [facility] [place] [address] Chronic kidney disease stage 4 (CMS-HCC) (Primary [...] Creatinine, Urine 31 20 - 275 mg/dL [facility] ([facility]) Protein/Creatin ine, Urine NOTE 21 - 161 mg/g creat [facility] ([facility]) Comment: [...] AM CDT 11/10/2020 7:32 AM CDT Narrative [facility] ([facility]) - 11/14/2020 1:05 PM CDT FASTING:YES FASTING: YES Resulting Agency Comment Performing Organization Information: ?Site ID: [place] ?Name: [facility] ?Address: [address] [address] ?Director: Hakeem Jenkins D.O., MPH Aubrey Reyna [...] D, (D2,D3), LC/MS/MS is recommended: order code [id number] (patients >2yrs). See Note 1 Note 1 For additional information, please refer to http://education.hiyalife/faq/FFD187 (This link is being provided for informational/ educational purposes only.) 11/10/2020 7:32 AM CDT 11/10/2020 7:32 AM CDT Narrative [facility] ([facility]) - 11/14/2020 1:05 PM CDT FASTING:YES FASTING: YES Resulting Agency Comment Performing Organization Information: ?Site ID: [place] ?Name: [facility] ?Address: [address] [address] ?Director: Hakeem Jenkins D.O., MPH Aubrey Reyna MD LAB BLOOD ORDERABLES [facility] (ST) * (ABNORMAL) PTH Intact w/o Calcium, Serum (11/10/2020 7:32 AM CDT) [facility] PTH, Intact, Serum/Plasma 86(H) 14 - 64 pg/mL [facility] ([facility]) Comment: Interpretive [...] AM CDT 11/10/2020 7:32 AM CDT Narrative [facility] ([facility]) - 11/14/2020 1:05 PM CDT FASTING:YES FASTING: YES Resulting Agency Comment Performing Organization Information: ?Site ID: [place] ?Name: [facility] ?Address: [address] [address] ?Director: Hakeem Jenkins D.O., MPH Aburey Reyna MD LAB BLOOD ORDERABLES [facility] ([facility]) * (ABNORMAL) Renal Function Panel (RFP) (11/10/2020 7:32 AM CDT) [facility] Glucose, Serum/Plasma 95 65 - 99 mg/dL [facility] ([facility]) Comment: ? Fasting reference interval Urea nitrogen, Serum/Plasma (BUN) 39(H) 7 - 25 mg/dL [facility] ([facility]) Creatinine, Serum/Plasma 1.76(H) 0.60 - 0.93 mg/dL [facility] ([facility]) Comment: For patients >49 years of age, the reference limit for Creatinine is approximately 13% higher for people identified as -Mexican. eGFR, non 29(L) > OR = 60 mL/min/1. 73m2 [facility] [place] ([facility]) eGFR, 33(L) > OR = 60 mL/min/1. 73m2 [facility] ([facility]) Urea nitrogen/Creatinin e, Serum/Plasma 22 6 - 22 (calc) [facility] ([facility]) Sodium, Serum/Plasma 133(L) 135 - 146 mmol/L [facility] ([facility]) Potassium, Serum/Plasma 5.3 3.5 - 5.3 mmol/L [facility]) Chloride, Serum/Plasma 100 98 - 110 mmol/L [facility] [place] ([facility]) Carbon dioxide CO2), total, Serum/Plasma 24 20 - 32 mmol/L [facility] ([facility]) Calcium, Serum/Plasma 9.3 8.6 - 10.4 mg/dL [facility] ([facility]) Phosphate, Serum/Plasma 5.0(H) 2.1 - 4.3 mg/dL [facility] ([facility]) Albumin, Serum/Plasma 3.9 3.6 - 5.1 g/dL [facility] [place] ([facility]) Blood (Blood, Venous) 11/10/2020 7:32 AM CDT 11/10/2020 7:32 AM CDT Narrative [facility] (ST[facility]) - 11/14/2020 1:05 PM CDT FASTING:YES FASTING: YES Resulting Agency Comment Performing Organization Information: ?Site ID: [place] ?Name: [facility] ?Address: [address] [address] ?Director: Hakeem Jenkins D.O., MPH Aubrey Reyna MD LAB BLOOD ORDERABLES [facility] ([facility]) documented in this encounter Visit Diagnoses Diagnosis Chronic kidney disease stage 4 (CMS-HCC)- Primary Diabetes mellitus with renal manifestations (CMS-HCC) Benign hypertension with chronic kidney disease documented in this encounter Care Teams Terrapin Fisher Relationship Specialty Start Date End Date Karrie Tompkins MD [address] [place] [address] [place] [phone] PCP - General 09/07/18 documented as of this encounter
--- OUTSIDE RECORDS SUMMARY | 2024-04-12 16:33 | XMS_ITS | Encounter Summary ---
Author Organization [facility] Physician Molly utions Address [address] [address] Phone Care Team Providers Care Target Worker Name Role Phone Karrie Tompkins MD Primary Care Provider [phone] Encounter Details Date Type Department Care Team (Latest Contact Info) Description 12/27/2021 3:00 PM CDT Office Visit [facility] Nephrology and Hypertension [address] [place] [address], [address] [place] [address] Aubrey Reyna MD [address] [facility], [address] [place] [address] Chronic kidney disease stage 4 (CMS-HCC); Diabetes [...] 3:00 PM CDT FOLLOW-UP OFFICE VISIT Patient: Knadace Cole Birthdate: 1950 PCP: Karrie Tompkins MD [...] , Rfl: ??? Lancets (OneTouch Delica Plus [id number]) [facility], , Disp: , Rfl: ??? [...] ASSESSMENT 1. Chronic kidney disease stage 4 ([facility]-HCC) 2. Diabetes mellitus with renal manifestations ([facility]-HCC) 3. Benign hypertension with chronic kidney disease [...] Lab Routine Chronic kidney disease stage 4 ([facility]-HCC) Diabetes mellitus with renal manifestations ([facility]-HCC) Benign hypertension with chronic kidney disease Secondary hyperparathyroidism ([facility]) Vitamin D deficiency, not otherwise specified Expected: [...] specified documented in this encounter Care Teams Target Worker Relationship Specialty Start Date End Date Karrie Tompkins MD [address] [place] [phone] PCP - General 09/07/18 documented as of this encounter
--- OUTSIDE RECORDS SUMMARY | 2024-04-12 16:33 | XMS_ITS | Encounter Summary ---
Author Organization [facility] Physician Molly utions Address [address] [address] Phone Care Team Providers Care Collaborative Physician Name Role Phone Karrie Tompkins MD Primary Care Provider [phone] Encounter Details Date Type Department Care Team (Latest Contact Info) Description 08/23/2021 1:15 PM CDT Office Visit [facility] Nephrology and Hypertension [address] [place] [address], [address] [place] [address] Aubrey Reyna MD [address] [facility], [address] [place] [address] Secondary hyperparathyroidism (CMS-HCC) (Primary Dx); Chronic kidney [...] , Rfl: ??? Lancets (OneTouch Delica Plus [id number]) [facility], , Disp: , Rfl: ??? latanoprost (XALATAN) [...] AM CDT Chronic kidney disease stage 4 ([facility]-HCC) Diabetes mellitus with renal manifestations ([facility]-HCC) Benign hypertension with chronic kidney disease Secondary hyperparathyroidism ([facility]-HCC) documented in this encounter Results * (ABNORMAL) PTH Intact w/o Calcium, Serum (12/05/2021 7:46 AM CDT) PTH, Intact, Serum/Plasma 92(H) 16 - 77 pg/mL [facility] ([facility]) Comment: Interpretive [...] AM CDT 12/05/2021 7:47 AM CDT Narrative [facility] ([facility]) - 12/06/2021 12:25 PM CDT FASTING:YES FASTING: YES Resulting Agency Comment Performing Organization Information: ?Site ID: [address] ?Name: [facility] ?Address: [address] [address] ?Director: Hakeem Jenkins D.O., MPH Aubrey Reyna MD LAB BLOOD ORDERABLES Performing Organization Address [facility]/ZIP Co de Phone Number [facility] (ST) * Total Protein w/ Creatinine, Urine, Random (12/05/2021 7:46 AM CDT) Creatinine, Urine 98 20 - 275 mg/dL [facility] ([facility]) Protein/Creatin ine, Urine 163 24 - 184 mg/g creat [facility] ([facility]) Protein/Creatin ine, Urine 0.163 0.024 - 0.184 mg/mg creat [facility] ([facility]) Protein, Urine 16 5 - 24 mg/dL [facility] ([facility]) 12/05/2021 7:46 AM CDT 12/05/2021 7:47 AM CDT Narrative [facility] ([facility]) - 12/06/2021 12:25 PM CDT FASTING:YES FASTING: YES Resulting Agency Comment Performing Organization Information: ?Site ID: [place] ?Name: [facility] ?Address: [address] [place] [id number] ?Director: Hakeem Jenkins D.O., MPH Aubrey Reyna MD LAB URINE ORDERABLES Performing Organization Address [facility] Co de Phone Number [facility] ([facility]) * (ABNORMAL) Renal Function Panel (RFP) (12/05/2021 7:46 AM CDT) Glucose, Serum/Plasma 93 65 - 99 mg/dL [facility] ([facility]) Comment: ? Fasting reference interval Urea nitrogen, Serum/Plasma (BUN) 39(H) 7 - 25 mg/dL [facility] ([facility]) Creatinine, Serum/Plasma 1.97(H) 0.60 - 1.00 mg/dL [facility] [...] Sodium, Serum/Plasma 131(L) 135 - 146 mmol/L [facility] ([facility]) Potassium, Serum/Plasma 4.7 3.5 - 5.3 mmol/L [facility] ([facility]) Chloride, Serum/Plasma 97(L) 98 - 110 mmol/L [facility] ([facility]) Carbon dioxide CO2), total, Serum/Plasma 24 20 - 32 mmol/L [facility] ([facility]) Calcium, Serum/Plasma 9.3 8.6 - 10.4 mg/dL [facility] ([facility]) Phosphate, Serum/Plasma 4.1 2.1 - 4.3 mg/dL [facility] ([facility]) Albumin, Serum/Plasma 4.1 3.6 - 5.1 g/dL [facility] ([facility]) Blood (Blood, Venous) 12/05/2021 7:46 AM CDT 12/05/2021 7:47 AM CDT Narrative [facility] ([facility]) - 12/06/2021 12:25 PM CDT FASTING:YES FASTING: YES Resulting Agency Comment Performing Organization Information: ?Site ID: [place] ?Name: [facility] ?Address: [address] [place], [place] [address] [address] ?Director: Hakeem Jenkins D.O., MPH Aubrey Reyna MD LAB BLOOD ORDERABLES [facility] ([facility]) documented in this encounter Visit Diagnoses Diagnosis Secondary hyperparathyroidism (CMS-HCC)- Primary Chronic kidney disease stage 4 (CMS-HCC) Diabetes mellitus with renal manifestations (CMS-HCC) Benign hypertension with chronic kidney disease documented in this encounter Care Teams Collaborative Physician Relationship Specialty Start Date End Date Karrie Tompkins MD [address] [place] [address] [place] [phone] PCP - General 09/07/18 documented as of this encounter
--- OUTSIDE RECORDS SUMMARY | 2024-04-12 16:33 | XMS_ITS | Encounter Summary ---
Author Organization [facility] Physician Molly utions Address [address], [place] [address] Phone Care Team Providers Care Guest History Clerk Name Role Phone Karrie Tompkins MD Primary Care Provider [phone] Encounter Details Date Type Department Care Team (Late st Contact Info) Description 11/23/2020 1:45 PM CDT Office Visit [facility] Nephrology and Hypertension [address] [place] [address], [address] [place] [address] Aubrey Reyna MD [address] [facility], [address] [place] [address] Chronic kidney disease stage 4 (CMS-HCC); Diabetes [...] , Rfl: ??? Lancets (OneTouch Delica Plus [id number]) [facility], , Disp: , Rfl: [...] ASSESSMENT 1. Chronic kidney disease stage 4 ([facility]) 2. Diabetes mellitus with renal manifestations ([facility]) 3. Benign hypertension with chronic kidney disease [...] CREATININE, URINE, RANDOM Routine 02/28/2021 8:14 AM TEXTILE SCRAP SALVAGER Chronic kidney disease stage 4 (CMS-HCC) Diabetes mellitus with renal manifestations (CMS-HCC) Benign hypertension with chronic kidney disease RENAL FUNCTION PANEL (RFP) Routine 02/28/2021 8:14 AM TEXTILE SCRAP SALVAGER Chronic kidney disease stage 4 (CMS-HCC) Diabetes mellitus with renal manifestations (CMS-HCC) Benign hypertension with chronic kidney disease documented in this encounter Results * (ABNORMAL) Total Protein w/ Creatinine, Urine, Random (02/28/2021 8:14 AM TEXTILE SCRAP SALVAGER) Creatinine, Urine 111 20 - 275 mg/dL [facility] ([facility]) Protein/Creati nine, Urine 252(H) 21 - 161 mg/g creat [facility] ([facility]) Protein/Creati nine, Urine 0.252(H) 0.021 - 0.161 mg/mg creat [facility] ([facility]) Protein, Urine 28(H) 5 - 24 mg/dL [facility] ([facility]) 02/28/2021 8:14 AM TEXTILE SCRAP SALVAGER 02/28/2021 8:15 AM TEXTILE SCRAP SALVAGER Narrative [facility] ([facility]) - 03/01/2021 12:03 PM TEXTILE SCRAP SALVAGER FASTING:NO FASTING: NO Resulting Agency Comment Performing Organization Information: ?Site ID: [place] ?Name: [facility] ?Address: [address] [address] ?Director: Hakeem Jenkins D.O., MPH Aubrey Reyna MD LAB URINE ORDERABLES [facility] ([facility]) * (ABNORMAL) Renal Function Panel (RFP) (02/28/2021 8:14 AM TEXTILE SCRAP SALVAGER) Glucose, Serum/Plasma 146(H) 65 - 139 mg/dL [facility] ([facility]) Comment: ? Non-fasting reference interval Urea nitrogen, Serum/Plasma (BUN) 24 7 - 25 mg/dL [facility] ([facility]) Creatinine, Serum/Plasma 1.55(H) 0.60 - 0.93 mg/dL [facility] ([facility]) Comment: For patients >49 years of age, the reference limit for Creatinine is approximately 13% higher for people identified as -Mauritanian. eGFR, non 33(L) > OR = 60 mL/min/1. 73m2 [facility] ([facility]) eGFR, 39(L) > OR = 60 mL/min/1. 73m2 [facility] ([facility]) Urea nitrogen/Creatinin e, Serum/Plasma 15 6 - 22 (calc) [facility] ([facility]) Sodium, Serum/Plasma 136 135 [...] (STL) Blood (Blood, Venous) 02/28/2021 8:14 AM TEXTILE SCRAP SALVAGER 02/28/2021 8:15 AM TEXTILE SCRAP SALVAGER Narrative [facility] ([facility]) - 03/01/2021 12:03 PM TEXTILE SCRAP SALVAGER FASTING:NO FASTING: NO Resulting Agency Comment Performing Organization Information: ?Site ID: [place] ?Name: [facility] ?Address: [facility] [place] [address] ?Director: Hakeem Jenkins D.O., MPH Aubrey Reyna MD LAB BLOOD ORDERABLES [facility] ([facility]) documented in this encounter Visit Diagnoses Diagnosis Chronic kidney disease stage 4 (CMS-HCC) Diabetes mellitus with renal manifestations (CMS-HCC) Benign hypertension with chronic kidney disease documented in this encounter Care Teams Guest History Clerk Relationship Specialty Start Date End Date Karrie Tompkins MD [address] [place] [phone] PCP - General 09/07/18 documented as of this encounter
--- OUTSIDE RECORDS SUMMARY | 2024-04-12 16:33 | XMS_ITS | Encounter Summary ---
Author Organization Amisha Physician Molly utions Address [facility] [address], [place] [address] Phone Care Team Providers Care Pattern Vault Clerk Name Role Phone Karrie Tompkins MD Primary Care Provider [phone] Reason for Visit * Reason Comments Med Refill Encounter Details Date Type Department Care Team (Late st Contact Info) Description 02/12/2022 Refill [facility] Nephrology and Hypertension [address] [place] [address], [address] [place] [address] Aubrey Reyna MD [address] [facility], [address] [place] [address] Social History Tobacco Use Types Packs/Day Years [...] on filedocumented in this encounter Care Teams Pattern Vault Clerk Relationship Specialty Start Date End Date Karrie Tompkins MD [address] [place] [address] [place] [phone] PCP - General 09/07/18 documented as of this encounter
--- OUTSIDE RECORDS SUMMARY | 2024-04-12 16:33 | XMS_ITS | Encounter Summary ---
Author Organization [facility] Address Critical access hospital[facility] [place], [place] [address] [place] [address] Care Team Providers Care Supervisor Sleeping Bag Department Name Role Phone Miah Montiel MD Primary Care Provider Unavailable Miah Montiel MD Primary Care Provider Unavailable Miah Montiel MD Primary Care Provider Unavailable Encounter Details Date Type Department Care Team (Late st Contact Info) Description 05/28/1990 [place] [address] Miah Montiel MD Social History Tobacco Use [...] filedocumented in this encounter Care Teams Supervisor Sleeping Bag Department Relationship Specialty Start Date End Date Miah Montiel MD PCP - General 12/31/12 Miah Montiel MD PCP - General 10/13/12 Miah Montiel MD PCP - General 09/15/10 documented as of this encounter
--- OUTSIDE RECORDS SUMMARY | 2024-04-12 16:33 | XMS_ITS | Encounter Summary ---
Author Organization Amisha Physician Molly utions Address [address], [place] [address] Phone Care Team Providers Care Leather Goods I Assembler Name Role Phone Karrie Tompkins MD Primary Care Provider [phone] Encounter Details Date Type Department Care Team (Late st Contact Info) Description 06/22/2020 2:00 PM CDT Office Visit [facility] Nephrology and Hypertension [address] [place] [address], [address] [place] [address] Aubrey Reyna MD [address] [facility], [address] [place] [address] Chronic kidney disease stage 4 (CMS-HCC); Diabetes [...] PLAN 1. Chronic kidney disease stage 4 ([facility]) 2. Diabetes mellitus with renal manifestations ([facility]) 3. Benign hypertension with chronic kidney disease [...] next visit and in 2 months Nneka Reyan MD documented in this encounter Plan of Treatment Not on file documented as of this encounter Procedures Procedure Name Priority Date/Time Associated Diagnosis Comments RENAL FUNCTION PANEL (RFP) Routine 08/10/2020 10:27 AM CDT Chronic kidney disease stage 4 (CMS-HCC) documented in this encounter Results * (ABNORMAL) Renal Function Panel (RFP) (08/10/2020 10:27 AM CDT) Glucose, Serum/Plasma 148(H) 65 - 139 mg/dL [facility] ([facility]) Comment: ? Non-fasting reference interval Urea nitrogen, Serum/Plasma (BUN) 29(H) 7 - 25 mg/dL [facility] ([facility]) Creatinine, Serum/Plasma 1.80(H) 0.60 - 0.93 mg/dL [facility] ([facility]) Comment: For patients >49 years of age, the reference limit for Creatinine is approximately 13% higher for people identified as -Mosotho. eGFR, non 28(L) > OR = 60 [...] Performing Organization Information: ?Site ID: [place] ?Name: [facility] ?Address: [address] [place] [address] ?Director: Hakeem Jenkins D.O., MPH Aubrey Reyna MD LAB BLOOD ORDERABLES [facility] ([facility]) documented in this encounter Visit Diagnoses Diagnosis Chronic kidney disease stage 4 (CMS-HCC) Diabetes mellitus with renal manifestations (CMS-HCC) Benign hypertension with chronic kidney disease documented in this encounter Care Teams Leather Goods I Assembler Relationship Specialty Start Date End Date Karrie Tompkins MD [address] [place] [phone] PCP - General 09/07/18 documented as of this encounter
--- OUTSIDE RECORDS SUMMARY | 2024-04-12 16:33 | XMS_ITS | Encounter Summary ---
Author Organization [facility] Address [address] [place] [address] Phone Care Team Providers Care Abrasive Grinder Name Role Phone Karrie Tompkins MD Primary Care Provider [phone] Encounter Details Date Type Department Care Team (Late st Contact Info) Description 08/12/2020 Telephone [facility] Nephrology and Hypertension [address] [facility], [address] [address] Aubrey Reyna MD [address] [facility], [address] [place] [address] Social History Tobacco Use Types Packs/Day Years [...] lab orders for that appt sent to [facility]. Thank you documented in this encounter Plan of Treatment Not on file documented as of this encounter Visit Diagnoses Not on filedocumented in this encounter Care Teams Abrasive Grinder Relationship Specialty Start Date End Date Karrie Tompkins MD [address] [place] [address] [place] [phone] PCP - General 09/07/18 documented as of this encounter
--- OUTSIDE RECORDS SUMMARY | 2024-04-12 16:33 | XMS_ITS | Encounter Summary ---
Author Organization [facility] Address [address], [place] [address] Phone Care Team Providers Care Stud Beef Cattle Farmer Name Role Phone Karrie Tompkins MD Primary Care Provider [phone] Encounter Details Date Type Department Care Team (Late st Contact Info) Description 04/26/2021 1:15 PM VISITOR SERVICES SPECIALIST Office Visit [facility] Nephrology and Hypertension [address] [place] [address], [address] [place] [address] Aubrey Reyna MD [address] [facility], [address] [place] [address] Chronic kidney disease stage 3B (CMS-HCC); Diabetes [...] Comments Blood Pressure 128/64 04/26/2021 1:03 PM VISITOR SERVICES SPECIALIST Pulse - - Temperature 35 ??C (95 ??F) 04/26/2021 1:03 PM VISITOR SERVICES SPECIALIST Respiratory Rate 18 04/26/2021 1:03 PM VISITOR SERVICES SPECIALIST Oxygen Saturation - - Inhaled Oxygen Concentration - - Weight 67.1 kg (148 lb) 04/26/2021 1:03 PM VISITOR SERVICES SPECIALIST Height 154.9 cm (5' 1 ) 04/26/2021 1:03 PM VISITOR SERVICES SPECIALIST Body Mass Index 27.96 04/26/2021 1:03 PM VISITOR SERVICES SPECIALIST documented in this encounter Progress Notes [...] , Rfl: ??? Lancets (OneTouch Delica Plus [id number]) [facility], , Disp: , Rfl: ??? latanoprost (XALATAN) [...] ASSESSMENT 1. Chronic kidney disease stage 3B ([facility]) 2. Diabetes mellitus with renal manifestations ([facility]) 3. Benign hypertension with chronic kidney disease [...] D3, Serum/Plasma 58 30 - 100 ng/mL [facility] [place] ([facility]) Comment: (Note) Vitamin D, [...] 2011;96(7):1911-30. ??For additional information, please refer to ??http://Maxta/faq/GII619 Cholecalciferol (Vitamin D3), Serum/Plasma 58 ng/mL [facility] [place] ([facility]) Comment:Reference range: Not established Calciferol (Vitamin D2), Serum/Plasma <4.0 ng/mL [facility] [place] ([facility]) Comment: (Note) Reference range: Not established This test was developed and its analytical performance characteristics have been determined by [employer]. It has not been cleared or approved by the US Food and Drug Administration. This assay has been validated pursuant to the CLIA regulation and is used for Clinical purposes. [facility] [address] [address],[address] [facility] [address] Iban Hoffman MD See Note 1 Note 1 For additional information, please refer to http://Maxta/faq/NGW270 (This link is being provided for informational/ educational purposes only.) Blood (Blood, Venous) 07/26/2021 8:06 AM CDT 07/26/2021 8:06 AM CDT Narrative Resulting Agency Comment Performing Organization Information: ?Site ID: [id number] ?Name: [employer] ?Address: [address] [place] [address], [address] [place] [address] ?Director: Iban Hoffman MD Aubrey Reyna MD LAB BLOOD ORDERABLES [facility] [place] (ST) * (ABNORMAL) PTH Intact w/o Calcium, Serum (07/26/2021 8:06 AM CDT) PTH, Intact, Serum/Plasma 157(H) 16 - 77 pg/mL [facility] [place] ([facility]) Comment: Interpretive Guide [...] Performing Organization Information: ?Site ID: [id number] ?Name: [employer] ?Address: [facility] [place] [address] ?Director: Hakeem Jenkins D.O., MPH Aubrey Reyna MD LAB BLOOD ORDERABLES Performing Organization Address [facility] Co de Phone Number [facility] [place] ([facility]) * (ABNORMAL) Total Protein w/ Creatinine, Urine, Random (07/26/2021 8:06 AM CDT) Creatinine, Urine 123 20 - 275 mg/dL [facility] [place] ([facility]) Protein/Creati nine, Urine 179(H) 21 - 161 mg/g creat [facility] [place] ([facility]) Protein/Creati nine, Urine 0.179(H) 0.021 - 0.161 mg/mg creat [facility] [place] ([facility]) Protein, Urine 22 5 - 24 mg/dL [facility] [place] ([facility]) 07/26/2021 8:06 AM CDT 07/26/2021 8:06 AM CDT Narrative Resulting Agency Comment Performing Organization Information: ?Site ID: BRANT ?Name: [employer] ?Address: [facility] [place] [address] ?Director: Hakeem Jenkins D.O., MPH Aubrey Reyna MD LAB URINE ORDERABLES Performing Organization Address [facility] Co de Phone Number [facility] [place] ([facility]) * (ABNORMAL) Renal Function Panel (RFP) (07/26/2021 8:06 AM CDT) Glucose, Serum/Plasma 128(H) 65 - 99 mg/dL [facility] [place] ([facility]) Comment: ? Fasting reference interval For someone without known diabetes, a glucose value >125 mg/dL indicates that they may have diabetes and this should be confirmed with a follow-up test. Urea nitrogen, Serum/Plasma (BUN) 19 7 - 25 mg/dL [facility] [place] ([facility]) Creatinine, Serum/Plasma 1.73(H) 0.60 - 0.93 mg/dL [facility] [place] ([facility]) Comment: For patients >49 years of age, the reference limit for Creatinine is approximately 13% higher for people identified as -Lebanese. eGFR, non 29(L) > OR = 60 mL/min/1. 73m2 [facility] [place] ([facility]) eGFR, 34(L) > OR = 60 mL/min/1. 73m2 [facility] [place] ([facility]) Urea nitrogen/Creatinin e, Serum/Plasma 11 6 - 22 (calc) [facility] [place] ([facility]) Sodium, Serum/Plasma 130(L) 135 - 146 mmol/L [facility] [place] ([facility]) Potassium, Serum/Plasma 4.8 3.5 - 5.3 mmol/L [facility] [place] ([facility]) Chloride, Serum/Plasma 96(L) 98 - 110 mmol/L [facility] [place] ([facility]) Carbon dioxide CO2), total, Serum/Plasma 26 20 - 32 mmol/L [facility] [place] ([facility]) Calcium, Serum/Plasma 8.7 8.6 - 10.4 mg/dL [facility] ([facility]) Phosphate, Serum/Plasma 4.5(H) 2.1 - 4.3 mg/dL [facility] [place] ([facility]) Albumin, Serum/Plasma 3.9 3.6 - 5.1 g/dL [facility] [place] ([facility]) Blood (Blood, Venous) 07/26/2021 8:06 AM CDT 07/26/2021 8:06 AM CDT Narrative Resulting Agency Comment Performing Organization Information: ?Site ID: BRANT ?Name: [employer] ?Address: [facility] [place] [address] ?Director: Hakeem Jenkins D.O., MPH Aubrey Reyna MD LAB BLOOD ORDERABLES [facility] [place] (ST) documented in this encounter Visit Diagnoses Diagnosis Chronic kidney disease stage 3B (CMS-HCC) Diabetes mellitus with renal manifestations (CMS-HCC) Benign hypertension with chronic kidney disease Vitamin D deficiency, not otherwise specified documented in this encounter Care Teams Stud Beef Cattle Farmer Relationship Specialty Start Date End Date Karrie Tompkins MD [address] [place] [address] [place] [phone] PCP - General 09/07/18 documented as of this encounter
--- OUTSIDE RECORDS SUMMARY | 2024-04-12 16:33 | XMS_ITS | Encounter Summary ---
Author Organization [facility] Address [facility] [place] [address] [place] [address] Care Team Providers Care Registered Pharmacy Technician Name Role Phone Miah Montiel MD Primary Care Provider Unavailable Miah Montiel MD Primary Care Provider Unavailable Miah Montiel MD Primary Care Provider Unavailable Encounter Details Date Type Department Care Team (Late st Contact Info) Description 04/26/1995 [place] [address] Miah Montiel MD Social History Tobacco Use [...] on filedocumented in this encounter Care Teams Registered Pharmacy Technician Relationship Specialty Start Date End Date Miah Montiel MD PCP - General 12/31/12 Miah Montiel MD PCP - General 10/13/12 Miah Montiel MD PCP - General 09/15/10 documented as of this encounter
--- OUTSIDE RECORDS SUMMARY | 2024-04-12 16:33 | XMS_ITS | Encounter Summary ---
Author Organization [facility] Address [facility] [address] [address] Phone Care Team Providers Care Technical Director Name Role Phone Karrie Tompkins MD Primary Care Provider [phone] Reason for Visit * Reason Comments Med Refill Encounter Details Date Type Department Care Team (Late st Contact Info) Description 01/04/2022 Refill [facility] Nephrology and Hypertension [address] [place] [address], [address] [place] [address] Aubrey Reyna MD [address] [facility], [address] [place] [address] Social History Tobacco Use Types Packs/Day Years [...] on filedocumented in this encounter Care Teams Technical Director Relationship Specialty Start Date End Date Karrie Tompkins MD [address] [place] [address] [place] [id number] PCP - General 09/07/18 documented as of this encounter
--- OUTSIDE RECORDS SUMMARY | 2024-04-12 16:33 | XMS_ITS | Encounter Summary ---
Author Organization [facility] Address [facility] [place], [place] [address] [place] [address] Care Team Providers Care Construction Accountant Name Role Phone Miah Montiel MD Primary Care Provider Unavailable Miah Montiel MD Primary Care Provider Unavailable Miah Montiel MD Primary Care Provider Unavailable Encounter Details Date Type Department Care Team (Late st Contact Info) Description 12/09/2007 Abstract [facility] [address] Miah Monitel MD Social History Tobacco Use Types Packs/Day [...] on filedocumented in this encounter Care Teams Construction Accountant Relationship Specialty Start Date End Date Miah Montiel MD PCP - General 12/31/12 Miah Montiel MD PCP - General 10/13/12 Miah Montiel MD PCP - General 09/15/10 documented as of this encounter
--- OUTSIDE RECORDS SUMMARY | 2024-04-12 16:33 | XMS_ITS | Encounter Summary ---
Author Organization [facility] Address [facility]6 [facility] [place] [address] [place] [address] Care Team Providers Care Rehabilitation Technician Name Role Phone Md Generic Willa HANEY Primary Care Provider Unavailable Miah Haney MD Primary Care Provider Unavailable Md Generic Conversion Primary Care Provider Unavailable Encounter Details Date Type Department Care Team (Late st Contact Info) Description 01/08/2008 Abstract [facility] Cardiology EKG [facility] [place] [address] Petar Barber MD [facility] [address] [address] Social History Tobacco Use Types Packs/Day Years [...] on filedocumented in this encounter Care Teams Rehabilitation Technician Relationship Specialty Start Date End Date Miah Haney MD PCP - General 12/31/12 Miah Haney MD PCP - General 10/13/12 Miah Haney MD PCP - General 09/15/10 documented as of this encounter
--- OUTSIDE RECORDS SUMMARY | 2024-04-12 16:33 | XMS_ITS | Clinical Summary ---
Author Organization [facility] Address [address] [place] [address] Phone Care Team Providers Care Transit Vehicle Inspector Name Role Phone Karrie Tompkins MD Primary Care Provider [phone] Allergies Active Allergy Reactions Criticality Noted Date [...] strip 10/05/2020 Active Lancets (OneTouch Delica Plus [id number]) misc 10/05/2020 Active cyanocobalamin 500 MCG tablet [...] Highest Risk Completed 07/01/2019, 06/30/2018 Care Teams Transit Vehicle Inspector Relationship Specialty Start Date End Date Karrie Tompkins MD [address] [place] [address] PCP - General 09/07/18
--- OUTSIDE RECORDS SUMMARY | 2024-04-12 16:34 | XMS_ITS | Referral Summary ---
Author Organization [facility] [address] [facility] 162 Address [address] [place] [address] Care Team Providers Care Jordan Man Name Role Phone Farhat Crocker NP Primary Care Provider [phone] Encounters Date Type Department Care Team Description 01/20/2024 12:30 PM CDT Office Visit [facility] Cardiology [address] [place] [address] Ori Murillo MD Mixed hyperlipidemia [...] on file Legal Sex Female 8:14 PM REHABILITATION CENTER MANAGER Gender Identity Not on file Sexual [...] from Last 3 Months Insurance [employer] [place] [id number] H[address] REF [place] [id number] [place] [id number] [employer] [place] [id number] Care Teams Jordan Man Relationship Specialty Start Date End Date Farhat Crocker NP [address] [place] [address] PCP - General Family Medicine 01/20/24
--- OUTSIDE RECORDS SUMMARY | 2024-04-12 16:34 | XMS_ITS | Clinical Summary ---
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 Gender Identity Not on file Sexual Orientation [...] from Last 3 Months Insurance [employer] [facility] MEDIC[facility] Address: [facility] [address] [place] [address] [facility] MDCR HMO REF [facility] Address: [address] [address] [place] [address] [facility] Address: [address] [address] [place] [address] [facility] Address: [address] [address] [place] [address] Care Teams Circle Edger Relationship Specialty Start Date End Date Farhat Crocker NP [address] [place] [address] PCP - General Family Medicine 01/20/24
--- OUTSIDE RECORDS SUMMARY | 2024-04-12 16:34 | XMS_ITS | Encounter Summary ---
Author Organization [facility] Address [address] [place] [address] Phone Care Team Providers Care Crystalizer Operator Name Role Phone Karrie Tompkins MD Primary Care Provider [phone] Encounter Details Date Type Department Care Team (Late st Contact Info) Description 10/12/2019 1:30 PM CDT Office Visit [facility] Nephrology and Hypertension [address] [place] [address], [address] [place] [address] Aubrey Reyna MD [address] [facility] [place] [address] Chronic kidney disease stage 3 (CMS-HCC); Diabetes [...] PLAN 1. Chronic kidney disease stage 3 ([facility]) 2. Diabetes mellitus with renal manifestations ([facility]) 3. Hypertensive renal disease Kandace has chronic [...] stage 3 Diabetes mellitus with renal manifestations ([facility]) Hypertensive renal disease QUESTASSURED? ? 25-HYDROXY VITAMIN [...] (01/12/2020 7:40 AM CDT) [facility] 25-Hydroxyvitamin D2+25-Hydroxyvitamin D3, Serum/Plasma 69 30 - [...] 2011;96(7):1911-30. ??For additional information, please refer to ??http://education.Peter Blueberry/faq/KYE084 Cholecalciferol (Vitamin D3), Serum/Plasma 69 ng/mL [facility] [place] ([facility]) Comment:Reference range: Not established Calciferol (Vitamin D2), Serum/Plasma <4 ng/mL [facility] [place] ([facility]) Comment: (Note) Reference range: Not established This test was developed and its analytical performance characteristics have been determined by [employer]. It has not been cleared or approved by the US Food and Drug Administration. This assay has been validated pursuant to the CLIA regulation and is used for Clinical purposes. [facility] [address] [place] [address],[address] [place] [address] Davis Sosa MD See Note 1 Note 1 For additional information, please refer to http://Kiko.Peter Blueberry/faq/HMC182 (This link is being provided for informational/ educational purposes only.) Blood (Blood, Venous) 01/12/2020 7:40 AM CDT 01/12/2020 7:41 AM CDT Narrative [facility] [place] ([facility]) - 01/14/2020 1:20 PM CDT FASTING:YES FASTING: YES Resulting Agency Comment Performing Organization Information: ?Site ID: [id number] ?Name: [employer] ?Address: [address] [place] [address], [address] [place] [address] ?Director: Iban Hoffman Aubrey Reyna MD LAB BLOOD ORDERABLES [facility] [place] ([facility]) * (ABNORMAL) PTH Intact w/o Calcium, Serum (01/12/2020 7:40 AM CDT) PTH, Intact, Serum/Plasma 95(H) 14 - 64 pg/mL [facility] [...] AM CDT 01/12/2020 7:41 AM CDT Narrative [facility] [place] ([facility]) - 01/14/2020 1:20 PM CDT FASTING:YES FASTING: YES Resulting Agency Comment Performing Organization Information: ?Site ID: OR ?Name: [employer] ?Address: [address] [place] [address] ?Director: Hakeem Jenkins D.O., MPH Aubrey Reyna MD LAB BLOOD ORDERABLES [facility] [place] (ST) * Total Protein w/ Creatinine, Urine, Random (01/12/2020 7:40 AM CDT) Creatinine, Urine 85 20 - 275 mg/dL [facility] [place] ([facility]) Protein/Creatin ine, Urine 141 21 - 161 mg/g creat [facility] [place] ([facility]) Protein/Creatin ine, Urine 0.141 0.021 - 0.161 mg/mg creat [facility] [place] ([facility]) Protein, Urine 12 5 - 24 mg/dL [facility] [place] ([facility]) 01/12/2020 7:40 AM CDT 01/12/2020 7:41 AM CDT Narrative [facility] [place] ([facility]) - 01/14/2020 1:20 PM CDT FASTING:YES FASTING: YES Resulting Agency Comment Performing Organization Information: ?Site ID: OR ?Name: [employer] ?Address: [facility] [place] [address] ?Director: Hakeem Jenkins D.O., MPH Aubrey Reyna MD LAB URINE ORDERABLES [facility] [place] ([facility]) * (ABNORMAL) Renal Function Panel (RFP) (01/12/2020 7:40 AM CDT) Glucose, Serum/Plasma 182(H) 65 - 99 mg/dL [facility] [place] ([facility]) Comment: ? Fasting reference interval For someone without known diabetes, a glucose value >125 mg/dL indicates that they may have diabetes and this should be confirmed with a follow-up test. Urea nitrogen, Serum/Plasma (BUN) 28(H) 7 - 25 mg/dL [facility] [place] ([facility]) Creatinine, Serum/Plasma 1.53(H) 0.50 - 0.99 mg/dL [facility] [place] ([facility]) Comment: For patients >49 years of age, the reference limit for Creatinine is approximately 13% higher for people identified as -Botswanan. eGFR, non 34(L) > OR = 60 mL/min/1. 73m2 [facility] [place] ([facility]) eGFR, 40(L) > OR = 60 mL/min/1. 73m2 [facility] [place] ([facility]) Urea nitrogen/Creatinin e, Serum/Plasma 18 6 - 22 (calc) [facility] [place] ([facility]) Sodium, Serum/Plasma 141 135 - 146 mmol/L [facility] [place] ([facility]) Potassium, Serum/Plasma [...] Albumin, Serum/Plasma 4.0 3.6 - 5.1 g/dL [facility] [place] ([facility]) Blood (Blood, Venous) 01/12/2020 7:40 AM CDT 01/12/2020 7:41 AM CDT Narrative [facility] [place] ([facility]) - 01/14/2020 1:20 PM CDT FASTING:YES FASTING: YES Resulting Agency Comment Performing Organization Information: ?Site ID: OR ?Name: [employer] ?Address: [facility] [place] [address] ?Director: Hakeem Jenkins D.O., MPH Aubrey Reyna MD LAB BLOOD ORDERABLES [facility] [place] ([facility]) documented in this encounter Visit Diagnoses Diagnosis Chronic kidney disease stage 3 (CMS-HCC) Diabetes mellitus with renal manifestations (CMS-HCC) Hypertensive renal disease documented in this encounter Care Teams Crystalizer Operator Relationship Specialty Start Date End Date Karrie Tompkins MD [address] [place] [address] [place] [address] PCP - General 09/07/18 documented as of this encounter
--- OUTSIDE RECORDS SUMMARY | 2024-04-12 16:34 | XMS_ITS | Continuity of Care Document ---
Author Organization [facility] Address [address] [place] [address] Phone Care Team Providers Care Knot Borer Name Role Phone Daniel Corrales MD Unavailable Unavailable Procedures Procedure Date Special Reports Or Forms Miscellaneous Advance Directives Directive Yes / No Effective Date File Name No Information Encounters Encounter Description Practice Location Reason(s) For Visit Diagnoses Date Provider Providers Copied on Encounter [facility], [address] [place], [place] [address] [address], [place], [place], [id number], tel:[phone] [facility] No Information [address] [place], [id number], [place]. tel:[phone] [facility], [address] [place], [place] [address] [address], [place], [place], [id number], tel:[phone] [facility] No Information [address] [place] [facility] [place], [id number], [place]. tel:[phone] Family History Family Member Type Diagnosis Age At Onset No Information Payers Payer name Insurance type Covered republican ID Authoriza tion(s) No Information Social History [...]
--- OUTSIDE RECORDS SUMMARY | 2024-04-12 16:34 | XMS_ITS | Encounter Summary ---
Author Organization [facility] Address [address] [place] [address] Phone Care Team Providers Care Registered Nurse Practitioner Name Role Phone Karrie Tompkins MD Primary Care Provider [phone] Encounter Details Date Type Department Care Team (Late st Contact Info) Description 09/08/2018 11:00 AM CDT Office Visit [facility] Nephrology and Hypertension [address] [place] [address], [address] [place] [address] Aubrey Reyna MD [address] [facility], [address] [place] [address] Chronic kidney disease stage 3 (CMS-HCC); Diabetes [...] The patient had been following with her change control coordinator in [place], [place] up until she moved to this [...] diabetes, and age-related change. As her previous change control coordinator did an extensive work-up and evaluation of [...] Lab Routine Chronic kidney disease stage 3 ([facility]-HCC) Expected: 09/08/2018, Expires: 09/09/2019 Urinalysis, Routine Lab Routine Chronic kidney disease stage 3 ([facility]-HCC) Expected: 09/08/2018, Expires: 09/09/2019 Vitamin D, 25-Hydroxy, Serum Lab Routine Chronic kidney disease stage 3 ([facility]) Expected: 12/29/2018, Expires: 09/09/2019 documented as of this encounter Procedures Procedure Name Priority Date/Time Associated Diagnosis Comments VITAMIN D, 25-OH, TOTAL,IA Routine 09/24/2018 10:25 AM CDT TOTAL PROTEIN W/ CREATININE, URINE, RANDOM Routine 09/24/2018 10:25 AM CDT Chronic kidney disease stage 3 ([facility]-HCC) RENAL FUNCTION PANEL (RFP) Routine 09/24/2018 10:25 AM CDT Chronic kidney disease stage 3 ([facility]-HCC) URINALYSIS, ROUTINE Routine 09/24/2018 1 0:25 AM CDT PTH INTACT W/O CALCIUM, SERUM Routine 09/24/2018 10:25 AM CDT Chronic kidney disease stage 3 (CMS-HCC) documented in this encounter Results * (ABNORMAL) Vitamin d, 25-Oh, Total,Ia (09/24/2018 10:25 AM CDT) Pathologist [facility] Calcidiol, Serum/Plasma 27(L) 30 - 100 ng/mL [facility] (ST) Comment: Vitamin D Status ? 25-OH Vitamin D: Deficiency: ?<20 ng/mL Insufficiency: ? 20 - 29 ng/mL Optimal: ? > or = 30 ng/mL For 25-OH Vitamin D testing on patients on D2-supplementation and patients for whom quantitation of D2 and D3 fractions is required, the QuestAssureD(TM) 25-OH VIT D, (D2,D3), LC/MS/MS is recommended: order code 69157 (patients >2yrs). For more information on this test, go to: http://education.BackOps/faq/POG699 (This link is being provided for informational/educational purposes only.) 09/24/2018 10:2 5 AM CDT 09/24/2018 10:26 AM CDT Narrative [facility] ([facility]) - 09/25/2018 2:45 PM CDT FASTING:YES FASTING: YES Resulting Agency Comment Performing Organization Information: ?Site ID: [id number] ?Name: [facility] ?Address: [id number] [place] [address] [place] [address] ?Director: Hakeem Jenkins D.O., MPH Aubrey Reyna MD LAB BLOOD ORDERABLES [facility] ([facility]) * (ABNORMAL) Urinalysis, Routine (09/24/2018 10:25 AM CDT) Pathologist [facility] Color of Urine YELLOW YELLOW [facility] - [...] AM CDT 09/24/2018 10:26 AM CDT Narrative [facility] ([facility]) - 09/25/2018 2:45 PM CDT FASTING:YES FASTING: YES Resulting Agency Comment Performing Organization Information: ?Site ID: [id number] ?Name: [facility] ?Address: [facility] [place] [address] ?Director: Hakeem Jenkins D.O., MPH Aubrey Reyna [...] Performing Organization Information: ?Site ID: [place] ?Name: [facility] ?Address: [address] [place] [address] ?Director: Hakeem Jenkins D.O., MPH Aubrey Reyna [...] Performing Organization Information: ?Site ID: [id number] ?Name: [facility] ?Address: [address] [address] [address] ?Director: Hakeem Jenkins D.O., MPH Aubrey Reyna MD LAB BLOOD ORDERABLES [facility] ([facility]) * (ABNORMAL) *Renal Function Panel (RFP) (09/24/2018 10:25 AM CDT) Glucose, Serum/Plasma 144(H) 65 - 99 mg/dL [facility] ([facility]) Comment: ? Fasting reference interval For someone without known diabetes, a glucose value >125 mg/dL indicates that they may have diabetes and this should be confirmed with a follow-up test. Urea nitrogen, Serum/Plasma (BUN) 43(H) 7 - 25 mg/dL [facility] ([facility]) Creatinine, Serum/Plasma 1.65(H) 0.50 - 0.99 mg/dL [facility] ([facility]) Comment: For patients >49 years of age, the reference limit for Creatinine is approximately 13% higher for people identified as -[place]. eGFR, non 32(L) > OR = 60 mL/min/1. 73m2 [facility] ([facility]) eGFR, 37(L) > OR = 60 mL/min/1. 73m2 [facility] ([facility]) Urea nitrogen/Creatinin e, Serum/Plasma 26(H) 6 - 22 (calc) [facility] ([facility]) Sodium, Serum/Plasma 135 135 - 146 mmol/L [facility]) Potassium, Serum/Plasma 5.8(H) 3.5 - 5.3 mmol/L [facility] ST. [...] Albumin, Serum/Plasma 4.4 3.6 - 5.1 g/dL [facility]) Blood (Blood, Venous) 09/24/2018 10:25 AM CDT 09/24/2018 10:26 AM CDT Narrative [facility]) - 09/25/2018 2:45 PM CDT FASTING:YES FASTING: YES Resulting Agency Comment Performing Organization Information: ?Site ID: [place] ?Name: [facility] ?Address: [address] [place] [address] ?Director: Hakeem Jenkins D.O., MPH Aubrey Reyna MD LAB BLOOD ORDERABLES [facility]) documented in this encounter Visit Diagnoses Diagnosis Chronic kidney disease stage 3 ([facility]-HCC) Diabetes mellitus with renal manifestations ([facility]-HCC) Hypertensive renal disease documented in this encounter Care Teams Registered Nurse Practitioner Relationship Specialty Start Date End Date Karrie Tompkins MD [address] [place] [address] PCP - General 09/07/18 documented as of this encounter
--- OUTSIDE RECORDS SUMMARY | 2024-04-12 16:34 | XMS_ITS | Encounter Summary ---
Author Organization [facility] Address [address] [place] [address] Care Team Providers Care Hip Hop Dance Instructor Name Role Phone Farhat Crocker NP Primary Care Provider [phone] Reason for Visit * Reason Comments Follow-up Overdue annual f/u Hypertension Hyperlipidemia Shortness of Breath Encounter Details Date Type Department Care Team (Latest Contact Info) Description 01/20/2024 12:30 PM CDT Office Visit [facility] Cardiology [address] [facility] [address] [place] [address] Ori Murillo MD [address] [place] [address] Mixed hyperlipidemia (Primary Dx); Primary hypertension; [...] on file 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 Patient was in [place] and moved to this area recently. She was evaluated in [place] by stress test about couple years ago that was unremarkable. 02/23/2019 initial consultation: Complains of dyspnea on exertion for the last couple years specially walking half a mi or going up stairs. She did have chest pain, left-sided aggravated by moving the left shoulder and stress test in [place] to was negative. She admits to heartburn when she eats and relieved by antacids. This has not changed form many years. Denies lower limb edema, orthopnea, parox ysmal nocturnal dyspnea, dizziness, syncope. She reports that she was exposed to secondhand smokingall her life. Head brother at age 69 with massive myocardial infarction. 04/06/2019 follow-up visit with DESIGN ASSEMBLER: She returns for follow-up of her dyspnea [...] chest pain recently. 10/12/2019 follow-up visit with DESIGN ASSEMBLER: She returns for six-month follow-up. She reports [...] palpitations at night. 10/16/2021 follow-up visit with DESIGN ASSEMBLER: She is here for annual follow-up. Over [...] the last year. 04/12/2022 office visit with DESIGN ASSEMBLER. She returns to the office at my [...] facial fractures, and she was transferred from [place] to [facility] for further evaluation and treatment. [...] She underwent upper back surgery at [facility] in May 2022 and did well. Shortness [...] Use: Not At Risk (06/20/2022) Received from [facility] Health AUDIT-C Frequency of Alcohol [...] by mouth nightly, Disp: , Rfl: vitamins A,C,J-jwmj-afuynw (PreserVision AREDS) 2,148 mcg-113 mg-45 mg-17.4mg tablet, [...] cardiac structure and function. Repeat echo at [facility] 2021 shows ejection fraction 72%, severe mitral annular calcification mild mitral stenosis. Consider repeating echo next visit. In regards to hypertension, blood pressure today 120/58. Continue carvedilol and lisinopril. She has a history of hyperlipidemia. Continue pravastatin. Lipid panel done today January 20 2024LDL 84, HDL 31 and triglycerides 131. CKD is followed by tobacco conditioner Dr. Reyna. Continue Nephrology follow-up. She takes Lasix 20 mg every other day. Keep the previously scheduled follow-up with Dr. Murillo in 12months. Call us sooner with questions or concerns. Ori Murillo MD This note is dictated and transcribed using DoveConviene Direct Software. Supplemental Nurse variancesmay occur. Despite proofreading, typographical errors may [...] abnormality documented in this encounter Care Teams Hip Hop Dance Instructor Relationship Specialty Start Date End Date Farhat Crocker NP [address] [place] [address] PCP - General Family Medicine 01/20/24 documented as of this encounter
--- OUTSIDE RECORDS SUMMARY | 2024-04-12 16:34 | XMS_ITS | Encounter Summary ---
Author Organization [facility] Address [address] [place] [address] Phone Care Team Providers Care Architectural Technologist Name Role Phone Karrie Tompkins MD Primary Care Provider [phone] Encounter Details Date Type Department Care Team (Late st Contact Info) Description 10/09/2018 Telephone [facility] Nephrology and Hypertension [facility], [address] [place] [address] Aubrey Reyna MD [address] [facility], [address] [place] [address] Social History Tobacco Use Types Packs/Day Years [...] on filedocumented in this encounter Care Teams Architectural Technologist Relationship Specialty Start Date End Date Karrie Tompkins MD [address] [place] [address] [place] [address] PCP - General 09/07/18 documented as of this encounter
--- OUTSIDE RECORDS SUMMARY | 2024-04-12 16:34 | XMS_ITS | Encounter Summary ---
Author Organization [facility] Address [address] [place] [address] Phone Care Team Providers Care Laundry Washer Name Role Phone Karrie Tompkins MD Primary Care Provider [phone] Encounter Details Date Type Department Care Team (Late st Contact Info) Description 02/22/2020 1:15 PM CLOTH SPREADER Office Visit [facility] Nephrology and Hypertension [address] [place] [address], [address] [place] [address] Aubrey Reyna MD [address] [facility], [address] [place] [address] Chronic kidney disease, stage 3b; Diabetes mellitus with renal manifestations ([facility]-HCC); Benign hypertension with chronic kidney [...] Comments Blood Pressure 136/76 02/22/2020 1:22 PM CLOTH SPREADER Pulse - - Temperature 36.3 ??C (97.4 ??F) 02/22/2020 1:22 PM CS T Respiratory Rate 18 02/22/2020 1:22 PM CLOTH SPREADER Oxygen Saturation - - Inhaled Oxygen Concentration - - Weight 76.7 kg (169 lb) 02/22/2020 1:22 PM CLOTH SPREADER Height 154.9 cm (5' 1 ) 02/22/2020 1:22 PM CLOTH SPREADER Body Mass Index 31.93 02/22/2020 1:22 PM CLOTH SPREADER documented in this encounter Progress Notes * [...] 3b 2. Diabetes mellitus with renal manifestations ([facility]) 3. Benign hypertension [...] CREATININE, URINE, RANDOM Routine 05/24/2020 8:54 AM CLOTH SPREADER Chronic kidney disease, stage 3b Diabetes mellitus with renal manifestations (CMS-HCC) Benign hypertension with chronic kidney disease RENAL FUNCTION PANEL (RFP) Routine 05/24/2020 8:54 AM CLOTH SPREADER Chronic kidney disease, stage 3b Diabetes mellitus with renal manifestations (CMS-HCC) Benign hypertension with chronic kidney disease documented in this encounter Results * Total Protein w/ Creatinine, Urine, Random (05/24/2020 8:54 AM CLOTH SPREADER) Creatinine, Urine 107 20 - 275 mg/dL [facility]) Protein/Creatin ine, Urine 84 21 - 161 mg/g creat [facility]) Protein/Creatin ine, Urine 0.084 0.021 - 0.161 mg/mg creat [facility]) Protein, Urine 9 5 - 24 mg/dL [facility]) 05/24/2020 8:54 AM CLOTH SPREADER 05/24/2020 8:55 AM CLOTH SPREADER Narrative Resulting Agency Comment Performing Organization Information: ?Site ID: [id number] ?Name: [facility] ?Address: [id number] [place] [address] [place] [address] ?Director: Hakeem Jenkins D.O., MPH Aubrey Reyna MD LAB URINE ORDERABLES [facility] * (ABNORMAL) Renal Function Panel (RFP) (05/24/2020 8:54 AM CLOTH SPREADER) Glucose, Serum/Plasma 115(H) 65 - 99 mg/dL [facility]) Comment: ? Fasting reference interval For someone without known diabetes, a glucose value between 100 and 125 mg/dL is consistent with prediabetes and should be confirmed with a follow-up test. Urea nitrogen, Serum/Plasma (BUN) 39(H) 7 - 25 mg/dL [facility] ([facility]) Creatinine, Serum/Plasma 2.20(H) 0.60 - 0.93 mg/dL [facility] ([facility]) Comment: For patients >49 years of age, the reference limit for Creatinine is approximately 13% higher for people identified as -[place]agu[place]. eGFR, non 22(L) > OR = 60 mL/min/1. 73m2 [facility] ([facility]) eGFR, 25(L) > OR = 60 mL/min/1. 73m2 [facility]) Urea nitrogen/Creatinin e, Serum/Plasma 18 6 - 22 (calc) [facility]) Sodium, Serum/Plasma 133(L) 135 - 146 mmol/L [facility]) Potassium, Serum/Plasma 5.3 3.5 - 5.3 mmol/L [facility]) Chloride, Serum/Plasma 102 98 - 110 mmol/L [facility]) Carbon dioxide CO2), total, Serum/Plasma 21 20 - 32 mmol/L [facility]) Calcium, Serum/Plasma 9.1 8.6 - 10.4 mg/dL [facility]) Phosphate, Serum/Plasma 4.1 2.1 - 4.3 mg/dL [facility]) Albumin, Serum/Plasma 3.9 3.6 - 5.1 g/dL [facility] ([facility]) Blood (Blood, Venous) 05/24/2020 8:54 AM CLOTH SPREADER 05/24/2020 8:55 AM CLOTH SPREADER Narrative Resulting Agency Comment Performing Organization Information: ?Site ID: [place] ?Name: [facility] ?Address: [address] [address] ?Director: Hakeem Jenkins D.O., MPH Aubrey Reyna MD LAB BLOOD ORDERABLES [facility]) documented in this encounter Visit Diagnoses Diagnosis Chronic kidney disease, stage 3b Diabetes mellitus with renal manifestations (CMS-HCC) Benign hypertension with chronic kidney disease documented in this encounter Care Teams Laundry Washer Relationship Specialty Start Date End Date Karrie Tompkins MD [address] [place] [address] [place] [address] PCP - General 09/07/18 documented as of this encounter
--- OUTSIDE RECORDS SUMMARY | 2024-04-12 16:34 | XMS_ITS | Encounter Summary ---
Author Organization [facility] Address [address] [place] [address] Phone Care Team Providers Care Licensed And Certified Midwife Name Role Phone Karrie Tompkins MD Primary Care Provider Encounter Details Date Type Department Care Team (Late st Contact Info) Description 08/03/2019 Telephone [facility] Nephrology and Hypertension [address] [facility], [address] [place] [address] Aubrey Reyna MD [address] [facility], [address] [place] [address] Social History Tobacco Use Types Packs/Day Years [...] that she got her labs done at [facility] on Sunday 07/30. Thank you documented in this encounter Plan of Treatment Not on file documented as of this encounter Visit Diagnoses Not on filedocumented in this encounter Care Teams Licensed And Certified Midwife Relationship Specialty Start Date End Date Karrie Tompkins MD [address] [place] [phone] PCP - General 09/07/18 documented as of this encounter
--- OUTSIDE RECORDS SUMMARY | 2024-04-12 16:34 | XMS_ITS | Encounter Summary ---
Author Organization [facility] Address [address], [place] [address] Phone Care Team Providers Care Lofter Name Role Phone Karrie Tompkins MD Primary Care Provider [phone] Encounter Details Date Type Department Care Team (Late st Contact Info) Description 06/10/2019 2:15 PM CDT Office Visit [facility] Nephrology and Hypertension [address] [place] [address], [address] [place] [address] Aubrey Reyna MD [address] [facility], [address] [place] [address] Chronic kidney disease stage 3 (CMS-HCC); Diabetes [...] VISIT Patient: Kandace Cole Birthdate: 1950 PCP: aKrrie Tompkins MD Visit Date: 06/10/2019 INTERIM HISTORY [...] Creatinine, Urine 29 20 - 275 mg/dL [facility] Protein/Creatin ine, Urine NOTE 21 - 161 mg/g creat [facility] ([facility]) Comment: THE PROTEIN VALUE IS LESS THAN 4 MG/DL THEREFORE WE ARE UNABLE TO CALCULATE EXCRETION AND/OR CREATININE RATIO. ?? Protein/Creatin ine, Urine NOTE 0.021 - 0.161 mg/mg creat [facility] ([facility]) Protein, Urine <4(L) 5 - 24 mg/dL [facility] ([facility]) Comment: Verified by repeat analysis. 10/05/2019 12:5 2 PM CDT 10/05/2019 12:53 PM CDT Narrative [facility] ([facility]) - 10/06/2019 3:01 PM CDT SPLIT 07/31/2019 FROM [id number] FASTING:NO FASTING: NO Resulting Agency Comment Performing Organization Information: ?Site ID: [place] ?Name: [facility] ?Address: [address] [place] [id number] ?Director: Hakeem Jenkins D.O., MPH Aubrey Reyna MD LAB URINE ORDERABLES [facility] ([facility]) * (ABNORMAL) Renal Function Panel (RFP) (07/31/2019 9:05 AM CDT) Glucose, Serum/Plasma 149(H) 65 - 99 mg/dL [facility] ([facility]) Comment: ? Fasting reference interval For someone without known diabetes, a glucose value >125 mg/dL indicates that they may have diabetes and this should be confirmed with a follow-up test. Urea nitrogen, Serum/Plasma (BUN) 38(H) 7 - 25 mg/dL [facility] ([facility]) Creatinine, Serum/Plasma 1.79(H) 0.50 - 0.99 mg/dL [facility] ([facility]) Comment: For patients >49 years of age, the reference limit for Creatinine is approximately 13% higher for people identified as -[place] Citizen. eGFR, non 28(L) > OR = 60 mL/min/1. 73m2 [facility] ([facility]) eGFR, 33(L) > OR = 60 mL/min/1. 73m2 [facility] ([facility]) Urea nitrogen/Creatinin e, Serum/Plasma 21 6 - 22 (calc) [facility] ([facility]) Sodium, Serum/Plasma 138 135 - 146 mmol/L [facility]) Potassium, Serum/Plasma 4.7 3.5 - 5.3 mmol/L [facility] ([facility]) Chloride, Serum/Plasma 103 98 - 110 mmol/L [facility] ([facility]) Carbon dioxide CO2), total, Serum/Plasma 26 20 - 32 mmol/L [facility]) Calcium, Serum/Plasma 9.8 8.6 - 10.4 mg/dL [facility] ([facility]) Phosphate, Serum/Plasma 4.3 2.1 - 4.3 mg/dL [facility] ([facility]) Albumin, Serum/Plasma 4.0 3.6 - 5.1 g/dL [facility] ([facility]) Blood (Blood, Venous) 07/31/2019 9:05 AM CDT 07/31/2019 9:06 AM CDT Narrative [facility] ([facility]) - 08/01/2019 2:15 AM CDT FASTING:YES COLLECTION REQUIREMENTS NOT MET. PATIENT ADVISED TO RETURN. FASTING: YES Resulting Agency Comment Performing Organization Information: ?Site ID: [place] ?Name: [facility] ?Address: [address] [address] [address] ?Director: Hakeem Jenkins D.O., MPH Aubrey Reyna MD LAB BLOOD ORDERABLES [facility] ([facility]) documented in this encounter Visit Diagnoses Diagnosis Chronic kidney disease stage 3 (CMS-HCC) Diabetes mellitus with renal manifestations (CMS-HCC) Hypertensive renal disease documented in this encounter Care Teams Lofter Relationship Specialty Start Date End Date Karrie Tompkins MD [address] [place] [address] [place] [address] PCP - General 09/07/18 documented as of this encounter
--- OUTSIDE RECORDS SUMMARY | 2024-04-12 16:34 | XMS_ITS | Encounter Summary ---
Author Organization [facility] Address [address] [place] [address] Phone Care Team Providers Care Bank Accountant Name Role Phone Karrie Tompkins MD Primary Care Provider [phone] Encounter Details Date Type Department Care Team (Late st Contact Info) Description 10/08/2019 Orders Only [facility] Nephrology and Hypertension [facility], [address] [address] Aubrey Reyna MD [address] [facility], [address] [facility] [place] [address] Chronic kidney disease stage 3 (CMS-HCC) (Primary [...] Primary documented in this encounter Care Teams Bank Accountant Relationship Specialty Start Date End Date Karrie Tompkins MD [address] [place] [address] [place] [phone] PCP - General 09/07/18 documented as of this encounter
--- OUTSIDE RECORDS SUMMARY | 2024-04-12 16:34 | XMS_ITS | Encounter Summary ---
Author Organization [facility] Address [address] [place] [address] Phone Care Team Providers Care Office Rental Clerk Name Role Phone Karrie Tompkins MD Primary Care Provider [phone] Encounter Details Date Type Department Care Team (Late st Contact Info) Description 01/07/2019 10:30 AM CDT Office Visit [facility] Nephrology and Hypertension [address] [place] [address], [address] [place] [address] Aubrey Reyna MD [address] [facility], [address] [place] [address] Chronic kidney disease stage 3 (CMS-HCC); Diabetes [...] PROTCREATUR 64 09/24/2018 PTH 109 (H) 09/24/2018 [id number] 27 (L) 09/24/2018 ASSESSMENT AND PLAN 1. [...] Lab Routine Chronic kidney disease stage 3 ([facility]) Diabetes mellitus with renal manifestations ([facility]) Hypertensive renal disease Expected: 04/09/2019, Expires: 01/08/2020 documented as of this encounter Procedures Procedure Name Priority Date/Time Associated Diagnosis Comments TOTAL PROTEIN W/ CREATININE, URINE, RANDOM Routine 06/01/2019 9:59 AM COMMERCIAL SPECIALIST Chronic kidney disease stage 3 ([facility]) Diabetes mellitus with renal manifestations ([facility]) Hypertensive renal disease RENAL FUNCTION PANEL (RFP) Routine 06/01/2019 9:59 AM COMMERCIAL SPECIALIST Chronic kidney disease stage 3 (CMS-HCC) Diabetes mellitus with renal manifestations (CMS-HCC) Hypertensive renal disease HEMOGLOBIN A1C Routine 06/01/2019 9:59 AM COMMERCIAL SPECIALIST Chronic kidney disease stage 3 (CMS-HCC) Diabetes mellitus with renal manifestations ([facility]) Hypertensive renal disease PTH INTACT W/O CALCIUM, SERUM Routine 06/01/2019 9:59 AM COMMERCIAL SPECIALIST Chronic kidney disease stage 3 ([facility]) Diabetes mellitus with renal manifestations ([facility]) Hypertensive renal disease documented in this encounter Results * (ABNORMAL) Hemoglobin A1c, Serum (06/01/2019 9:59 AM COMMERCIAL SPECIALIST) Hemoglobin A1c/Hemoglobin, total, Blood 6.0(H) <5.7 % of total Hgb [facility] Comment: For [...] children. Blood (Blood, Venous) 06/01/2019 9:59 AM COMMERCIAL SPECIALIST 06/01/2019 10:00 AM COMMERCIAL SPECIALIST Narrative [facility] ([facility]) - 06/02/2019 2:45 PM COMMERCIAL SPECIALIST FASTING:YES FASTING: YES Resulting Agency Comment Performing Organization Information: ?Site ID: [place] ?Name: [facility] ?Address: [address] [place] [id number] ?Director: Hakeem Jenkins D.O., MPH Aubrey Reyna MD LAB BLOOD ORDERABLES [facility]) * (ABNORMAL) PTH Intact w/o Calcium, Serum (06/01/2019 9:59 AM COMMERCIAL SPECIALIST) PTH, Intact, Serum/Plasma 90(H) 14 - 64 pg/mL [facility]) Comment: Interpretive Guide ?Intact PTH ? Calcium ? ------- Normal Parathyroid ?Normal ? Normal Hypoparathyroidism ?Low or Low Normal ?Low Hyperparathyroidism ?? Primary ?Normal or High ? High ?? Secondary ?High ? Normal or Low ?? Tertiary ? High ? High Non-Parathyroid ?? Hypercalcemia ?Low or Low Normal ?High Blood (Blood, Venous) 06/01/2019 9:59 AM COMMERCIAL SPECIALIST 06/01/2019 10:00 AM COMMERCIAL SPECIALIST Narrative [facility] - [facility] ([facility]) - 06/02/2019 2:45 PM COMMERCIAL SPECIALIST FASTING:YES FASTING: YES Resulting Agency Comment Performing Organization Information: ?Site ID: [place] ?Name: [facility] ?Address: [address] [place] [address] ?Director: Hakeem Jenkins D.O., MPH Aubrey Reyna MD LAB BLOOD ORDERABLES [facility]) * Total Protein w/ Creatinine, Urine, Random (06/01/2019 9:59 AM COMMERCIAL SPECIALIST) Creatinine, Urine 81 20 - 275 mg/dL [facility]) Protein/Creatin ine, Urine 86 21 - 161 mg/g creat [facility] Protein/Creatin ine, Urine 0.086 0.021 - 0.161 mg/mg creat [facility]) Protein, Urine 7 5 - 24 mg/dL [facility] ([facility]) 06/01/2019 9:59 AM COMMERCIAL SPECIALIST 06/01/2019 10:00 AM COMMERCIAL SPECIALIST Narrative [facility] - 06/02/2019 2:45 PM COMMERCIAL SPECIALIST FASTING:YES FASTING: YES Resulting Agency Comment Performing Organization Information: ?Site ID: [place] ?Name: [email or web address] ?Address: [address] [place] [address] ?Director: Hakeem Jenkins D.O., MPH Aubrey Reyna MD LAB URINE ORDERABLES [facility] ([facility]) * (ABNORMAL) Renal Function Panel (RFP) (06/01/2019 9:59 AM COMMERCIAL SPECIALIST) Glucose, Serum/Plasma 155(H) 65 - 99 mg/dL [facility] Comment: ? Fasting reference interval For someone without known diabetes, a glucose value >125 mg/dL indicates that they may have diabetes and this should be confirmed with a follow-up test. Urea nitrogen, Serum/Plasma (BUN) 36(H) 7 - 25 mg/dL [facility]) Creatinine, Serum/Plasma 1.86(H) 0.50 - 0.99 mg/dL [facility]) Comment: For patients >49 years of age, the reference limit for Creatinine is approximately 13% higher for people identified as -Moroccan. eGFR, non 27(L) > OR = 60 mL/min/1. 73m2 [facility]) eGFR, 31(L) > OR = 60 mL/min/1. 73m2 [facility]) Urea nitrogen/Creatinin e, Serum/Plasma 19 6 - 22 (calc) [facility]) Sodium, Serum/Plasma [...] Calcium, Serum/Plasma 9.4 8.6 - 10.4 mg/dL [facility]) Phosphate, Serum/Plasma 4.3 2.1 - 4.3 mg/dL [facility]) Albumin, Serum/Plasma 4.1 3.6 - 5.1 g/dL [facility]) Blood (Blood, Venous) 06/01/2019 9:59 AM COMMERCIAL SPECIALIST 06/01/2019 10:00 AM COMMERCIAL SPECIALIST Narrative [facility]) - 06/02/2019 2:45 PM COMMERCIAL SPECIALIST FASTING:YES FASTING: YES Resulting Agency Comment Performing Organization Information: ?Site ID: [place] ?Name: [facility] ?Address: [facility] [place] [address] ?Director: Hakeem Jenkins D.O., MPH Aubrey Reyna MD LAB BLOOD ORDERABLES [facility]) documented in this encounter Visit Diagnoses Diagnosis Chronic kidney disease stage 3 (CMS-HCC) Diabetes mellitus with renal manifestations (CMS-HCC) Hypertensive renal disease documented in this encounter Care Teams Office Rental Clerk Relationship Specialty Start Date End Date Karrie Tompkins MD [address] [place] [address] [place] [id number] PCP - General 09/07/18 documented as of this encounter
--- OUTSIDE RECORDS SUMMARY | 2024-04-12 16:35 | XMS_ITS | Encounter Summary ---
Author Organization [facility] Address [address] [place] [address] Care Team Providers Care Tray Casting Machine Operator Name Role Phone Karrie Tompkins MD Primary Care Provider + Reason for Visit * Reason Comments Surgical Clearance Encounter Details Date Type Department Care Team (Late st Contact Info) Description 04/12/2022 9:30 AM BOARD WORKER Office Visit [facility] Cardiology [address] [facility] [address] [facility] [address] [place] [address] Rhea Torres NP [address] [place] [address] Dyspnea on exertion (Primary Dx); [...] on file Legal Sex Female 8:14 PM BOARD WORKER Gender Identity Not on file Sexual Orientation Not on file documented as of this encounter Last Filed Vital Signs Vital Sign Reading Time Taken Comments Blood Pressure 114/50 04/12/2022 9:33 AM BOARD WORKER Pulse 73 04/12/2022 9:33 AM BOARD WORKER Temperature - - Respiratory Rate - - Oxygen Saturation 99% 04/12/2022 9:33 AM BOARD WORKER Inhaled Oxygen Concentration - - Weight 61.7 kg (136 lb) 04/12/2022 9:33 AM BOARD WORKER Height 152.4 cm (5') 04/12/2022 9:33 AM BOARD WORKER Body Mass Index 26.56 04/12/2022 9:33 AM BOARD WORKER documented in this encounter Progress Notes * Rhea Torres NP - 04/12/2022 9:30 AM CST Images from the original note were not included. [facility] Cardiology [address] [place] [address] Date of Visit: 04/12/2022 Patient ID: Kandace [...] massive myocardial infarction. 04/06/2019 follow-up visit with TECHNICAL SUPPORT ASSISTANT: She returns for follow-up of her dyspnea [...] chest pain recently. 10/12/2019 follow-up visit with TECHNICAL SUPPORT ASSISTANT: She returns for six-month follow-up. She reports [...] palpitations at night. 10/16/2021 follow-up visit with TECHNICAL SUPPORT ASSISTANT: She is here for annual follow-up. Over [...] the last year. 04/12/2022 office visit with TECHNICAL SUPPORT ASSISTANT. She returns to the office at my [...] facial fractures, and she was transferred from [place] to [facility] for further evaluation and treatment. [...] above) 10/16/2021 office note from myself, 02/14/2022 [facility] discharge summary, today's ECG. I have also reviewed: allergies, current medications, past family history, past medical history, past social history, past surgical history and problem list Medical History: Past Medical History: Diagnosis Date Ferrell's esophagus COPD (chronic obstructive pulmonary disease) ([facility]) ([facility]) Depression Heart murmur Hyperlipidemia Hypertension Iron [...] by mouth nightly, Disp: , Rfl: vitamins A,C,X-kgnh-gpfcbt (PreserVision AREDS) 2,148 mcg-113 mg-45 mg-17.4mg tablet, [...] and lost weight. CKD is followed by bag washer Dr. Reyna. Continue Nephrology follow-up. From a [...] concerns. 04/12/2022 CYNDI Marcum- Nurse Practitioner with [facility] Cardiology This note is dictated and transcribed using iValidate.me Direct Software. Fraternity Adviser variancesmay occur. Despite proofreading, typographical errors may occur. D WORKER documented in this encounter Miscellaneous Notes * Addendum Note - Jazmin Gurrola MA - 04/12/2022 9:30 AM CSTAddended by: JAZMIN GURROLA on: 04/12/2022 10:53 AM Modules accepted: Orders D WORKER documented in this encounter Plan of [...] reflect changes made after this encounter. vitamins A,C,S-tyvh-lstcv r (PreserVision AREDS) 2,148 mcg-113 mg-45 mg-17.4mg tablet 1 tablet polyvinyl alcohol (LIQUIFILM TEARS) 1.4 % ophthalmic solution Administer 1 drop into affected eye(s) every 4 (four) hours as needed 02/19/2022 citalopram (CeleXA) 40 mg tablet 04/07/2022 added in this encounter Care Teams Tray Casting Machine Operator Relationship Specialty Start Date End Date Karrie Tompkins MD PCP - General Family Medicine 11/21/18 01/19/24 documented as of this encounter
--- OUTSIDE RECORDS SUMMARY | 2024-04-12 16:35 | XMS_ITS | CONTINUITY OF CARE DOCUMENT ---
Author Name [email or web address] Address Unknown Organization [facility] Address [address] [place] [address] Phone [phone] Care Team Providers Care Functional Manager Name Role Phone Aaron Conte MD Unavailable FLEX SANTOS MD Unavailable [phone] FLEX SANTOS MD Unavailable INSURANCE PROVIDERS Payer name Policy type / Coverage type [employer] red republican ID UHC MEDICARE COMPLETE HMO Other [id number]
--- OUTSIDE RECORDS SUMMARY | 2024-04-12 16:35 | XMS_ITS | Encounter Summary ---
Author Organization [facility] Address [address] [place] [address] Phone Care Team Providers Care Business Process Consultant Name Role Phone Karrie Tompkins MD Primary Care Provider + Encounter Details Date Type Department Care Team (Late st Contact Info) Description 01/02/2020 Telephone [facility] Scheduling [address] [place] [address] Radha Perez CNA Social History Tobacco Use [...] on file Legal Sex Female 8:14 PM MARINE SUPERINTENDENT Gender Identity Not on file Sexual Orientation [...] filedocumented in this encounter Care Teams Business Process Consultant Relationship Specialty Start Date End Date Karrie Tompkins MD PCP - General Family Medicine 11/21/18 01/19/24 documented as of this encounter
--- OUTSIDE RECORDS SUMMARY | 2024-04-12 16:35 | XMS_ITS | Encounter Summary ---
Author Organization [facility] Address [address] [place] [address] Care Team Providers Care Shift Commander Name Role Phone Karrie Tompkins MD Primary Care Provider + Reason for Visit * Cardiology (Routine) - Closed Specialty Diagnoses / Procedures Referred By Contac t Referred To Contact Diagnoses Essential hypertension Dyspnea on exertion Procedures Transthoracic Echo Complete W Doppler/CF Zaina Murillo MD [facility] [address] Phone: tel: fax: [facility] Referral ID Status Reason Start Date Expiration Date Visits Re quested Visits Authorized [id number] Closed 04/11/2020 05/11/2021 1 1 Encounter Details Date Type Department Care Team (Latest Contact Info) Description 04/27/2020 11:15 AM SUPERVISOR LENS GENERATING Ancillary Procedure [facility] Cardiology [address] [facility] [address] [place] [address] Essential hypertension; Dyspnea on exertion [...] on file Legal Sex Female 8:14 PM SUPERVISOR LENS GENERATING Gender Identity Not on file Sexual Orientation [...] COMPLETE W DOPPLER/CF Routine 04/27/2020 10:17 AM SUPERVISOR LENS GENERATING Essential hypertension Dyspnea on exertion documented in this encounter Results * Transthoracic Echo Complete W Doppler/CF (04/27/2020 10:17 AM SUPERVISOR LENS GENERATING) Anatomical Region Laterality Modality Ultrasound 04/27/2020 10:1 7 AM SUPERVISOR LENS GENERATING Narrative 04/27/2020 12:39 PM SUPERVISOR LENS GENERATING [facility] Cardiology [address] [facility] [address], [place] [id number] [address], [place] [address] P:[phone] P:[phone] Echocardiographic Report Patient Name: KANDACE COLE : 1950 Study Date: 04/27/2020 10:17:22 AM Gender: F Tech: Location: [place] Ref.Provider: DANIELLE Height(Cm): 152 BSA: 1.73 Weight(Kg): [...] - 5.30 ] cm ? AV Peak Chritso ?1.60 ? m/s ? LVIDs MM ? [...] Findings: Interpretation Site: Exam was interpreted at [facility]. Left Ventricle: Normal left ventricular systolic [...] Signed By: Yusuf Novak MD 2020-04-27 12:39:52 SUPERVISOR LENS GENERATING Procedure Note Gustavo Novak MD - 04/27/2020 [facility] Cardiology [address] [facility] [address] [address] [address] [address] [address] P:[phone] P:[phone] Echocardiographic Report Patient Name: KANDACE COLEPatient ID: [id number] : [id number] Date: 04/27/2020 10:17:22 AM Gender: FAccession #: [id number] Tech: GMLocation: [place] Ref.Provider: Tiffanyight(Cm): 152 BSA: 1.73Weight(Kg): 75.75 Heart [...] 0.40 - 0.80 ] m/s MV Decel [id number] [ 150 - 200 ] msec PV Peak Vel1.35 [ 0.40 - 0.80 ] m/s E'0.07 E/E' 14 Findings: Interpretation Site: Exam was interpreted at [facility]. Left Ventricle: Normal left ventricular systolic [...] Signed By: Yusuf Novak MD 2020-04-27 12:39:52 SUPERVISOR LENS GENERATING Zaina Murillo MD CV ECHO PROCEDURES F [...] For 1 dose Given 04/27/2020 11:53 AM SUPERVISOR LENS GENERATING 1 mL documented in this encounter Orders Medications Ordered That Florentino ht Not Have Been Administered Count Last Ordered Date First Ordered Date perflutren lipid (DEFINITY) 1.5 mL in sodium chloride 0.9% 10 mL syringe 1 04/27/2020 documented in this encounter Care Teams Shift Commander Relationship Specialty Start Date End Date Karrie Tompkins MD PCP - General Family Medicine 11/21/18 01/19/24 documented as of this encounter
--- OUTSIDE RECORDS SUMMARY | 2024-04-12 16:35 | XMS_ITS | Encounter Summary ---
Author Organization [facility] Address [address] [place] [address] Care Team Providers Care Stitch Burnisher Name Role Phone Karrie Tompkins MD Primary Care Provider + Reason for Visit * Reason Comments Annual Exam Encounter Details Date Type Department Care Team (Late st Contact Info) Description 10/16/2021 1:30 PM CDT Office Visit [facility] Cardiology [address] [facility] [address] [facility] [address] [place] [address] Rhea Torres NP [address] [facility] [address] [place] [address] Dyspnea on exertion (Primary Dx); [...] on file Legal Sex Female 8:14 PM PHYSICAL THERAPY AID Gender Identity Not on file Sexual Orientation [...] from the original note were not included. [facility] Cardiology [address] [place] [address] Date of Visit: 10/16/2021 Patient ID: Kandace [...] for dyspnea on exertion. Patient was in [place] and moved to this area recently. She was evaluated in [place] by stress test about couple years ago that was unremarkable. 02/23/2019 initial consultation: Complains of dyspnea on exertion for the last couple years specially walking half a mi or going up stairs. She did have chest pain, left-sided aggravated by moving the left shoulder and stress test in [place] to was negative. She admits to heartburn when she eats and relieved by antacids. This has not changed form many years. Denies lower limb edema, orthopnea, parox ysmal nocturnal dyspnea, dizziness, syncope. She reports that she was exposed to secondhand smokingall her life. Head brother at age 69 with massive myocardial infarction. 04/06/2019 follow-up visit with BREWING DIRECTOR: She returns for follow-up of her dyspnea [...] chest pain recently. 10/12/2019 follow-up visit with BREWING DIRECTOR: She returns for six-month follow-up. She reports [...] palpitations at night. 10/16/2021 follow-up visit with BREWING DIRECTOR: She is here for annual follow-up. Over [...] modifications. CKD is now being followed by flatware maker. She was recently started on calcitriol. Continue [...] concerns. 10/16/2021 CYNDI Marcum- Nurse Practitioner with [facility] Cardiology This note is dictated and transcribed using ZAOZAO Direct Software. Cardiology Technician variancesmay occur. Despite proofreading, typographical errors [...] 07/20/2021 added in this encounter Care Teams Stitch Burnisher Relationship Specialty Start Date End Date Karrei Tompkins MD PCP - General Family Medicine 11/21/18 01/19/24 documented as of this encounter
--- OUTSIDE RECORDS SUMMARY | 2024-04-12 16:35 | XMS_ITS | Encounter Summary ---
Author Organization [facility] Address [address] [facility] [facility] [address] [facility] [address] [place] [address] Care Team Providers Care Electric Refrigerator Servicer Name Role Phone Karrie Tompkins MD Primary Care Provider + Encounter Details Date Type Department Care Team (Late st Contact Info) Description 04/20/2019 Orders Only [facility] Cardiology [address] [facility] [address] [place] [address] Provider, MD Dinesh [address] [place], [place] [id number] Social History Tobacco Use Types Packs/Day Years [...] on file Legal Sex Female 8:14 PM SHIRRING 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
--- OUTSIDE RECORDS SUMMARY | 2024-04-12 16:35 | XMS_ITS | Encounter Summary ---
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 BMI: 26.4 Prior spine surgery: YES, 1986-LUMBAR LAMINECTOMY AND 2006-CERVICAL DISC REPLACEMENT [facility] Physical therapy NO Injections NO Are you a current smoker: No Insurance: [facility] MEDICARE HMO Litigation: NO Imaging Done: Yes MRI: 08/2021 Imaging Location: [facility] PT TO BRING CD AND ARRIVE 45 MINS EARLY documented in this encounter Plan of Treatment Not on file documented as of this encounter Visit Diagnoses Not on filedocumented in this encounter Care Teams Commis Chef Relationship Specialty Start Date End Date Karrie Tompkins MD PCP - General Family Medicine 11/21/18 01/19/24 documented as of this encounter
--- OUTSIDE RECORDS SUMMARY | 2024-04-12 16:35 | XMS_ITS | Encounter Summary ---
Author Organization [facility] Address [address] [place] [address] Care Team Providers Care Manufacturing Test Technician Name Role Phone Karrie Tompkins MD Primary Care Provider + Reason for Referral * Cardiology (Routine) - Closed Specialty Diagnoses / Procedures Referred By Contac t Referred To Contact Diagnoses Essential hypertension Dyspnea on exertion Procedures Transthoracic Echo Complete W Doppler/CF Zaina Murillo MD [address] [address] Phone: tel: fax: [facility] Referral ID Status Reason Start Date Expiration Date Visits Re quested Visits Authorized [id number] Closed 04/11/2020 05/11/2021 1 1 NESS ANALYST INTERN Reason for Visit * Reason Comments ANN 6 month f/u. Pt not having any problems at this time. 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 Encounter Details Date Type Department Care Team (Latest Contact Info) Description 04/11/2020 10:30 AM BUSINESS ANALYST INTERN Office Visit [facility] Cardiology [address] [facility] [address] [place] [address] Zaina Murillo MD [address] [address] Essential hypertension (Primary Dx); Dyspnea [...] on file Legal Sex Female 8:14 PM BUSINESS ANALYST INTERN Gender Identity Not on file Sexual Orientation Not on file documented as of this encounter Last Filed Vital Signs Vital Sign Reading Time Taken Comments Blood Pressure 136/80 04/11/2020 10:32 AM BUSINESS ANALYST INTERN Pulse 85 04/11/2020 10:32 AM BUSINESS ANALYST INTERN Temperature - - Respiratory Rate - - Oxygen Saturation 91% 04/11/2020 10:32 AM BUSINESS ANALYST INTERN Inhaled Oxygen Concentration - - Weight 75.8 kg (167 lb 1.6 oz) 04/11/2020 10:32 AM BUSINESS ANALYST INTERN Height 152.4 cm (5') 04/11/2020 10:32 AM BUSINESS ANALYST INTERN Body Mass Index 32.63 04/11/2020 10:32 AM BUSINESS ANALYST INTERN documented in this encounter Progress Notes * Zaina Murillo MD - 04/11/2020 10:30 AM CST [facility] Cardiology [address] [place] [address] Date of Visit: 10/12/2019 Patient ID: Kandace [...] for dyspnea on exertion. Patient was in [place] and moved to this area recently. She was evaluated in [place] by stress test about couple years ago [...] massive myocardial infarction. 04/06/2019 follow-up visit with ASSAULT AMPHIBIOUS VEHICLE OFFICER: She returns for follow-up of her [...] chest pain recently. 10/12/2019 follow-up visit with ASSAULT AMPHIBIOUS VEHICLE OFFICER: She returns for six-month follow-up. She reports [...] unspecified whether stage 3a or 3b CKD ([facility]) Mixed hyperlipidemia Plan/Recommendations: Her dyspnea on exertion [...] in the past that was evaluated by machine bobbin winder in the [facility] area where she previously lived. I was [...] This note is dictated and transcribed using Züm XR Direct Software. Java Developer Analyst variancesmay occur. Despite proofreading, typographical errors may occur. NESS ANALYST INTERN documented in this encounter Miscellaneous Notes * Addendum Note - Nori Rogers MA - 04/11/2020 10:30 AM CSTAddended by: NORI ROGERS on: 04/11/2020 11:03 AM Modules accepted: Orders NESS ANALYST INTERN documented in this encounter Plan of Treatment Not on file documented as of this encounter Procedures Procedure Name Priority Date/Time Associated Diagnosis Comments POCT LIPID PANEL Routine 04/11/2020 11:0 1 AM BUSINESS ANALYST INTERN Mixed hyperlipidemia documented in this encounter Results * Transthoracic Echo Complete W Doppler/CF (04/27/2020 10:17 AM BUSINESS ANALYST INTERN) Anatomical Region Laterality Modality Ultrasound 04/27/2020 10:1 7 AM BUSINESS ANALYST INTERN Narrative 04/27/2020 12:39 PM BUSINESS ANALYST INTERN [facility] Cardiology [address], [place] [address] [address] [facility] [address], [place] [address] P:[phone] P:[phone] Echocardiographic Report Patient Name: KANDACE COLE : 11--1950 Study Date: 04/27/2020 10:17:22 AM Gender: F Tech: Location: [place] Ref.Provider: DANIELLE Height(Cm): 152 BSA: 1.73 Weight(Kg): [...] Findings: Interpretation Site: Exam was interpreted at [facility]. Left Ventricle: Normal left ventricular systolic function. [...] Signed By: Yusuf Novak MD 2020-04-27 12:39:52 BUSINESS ANALYST INTERN Procedure Note Gustavo Novak MD - 04/27/2020 [facility] Cardiology [address] [facility] [address], [place] [address] [address] [facility] [address] [address] [address] P:[phone] P:[phone] Echocardiographic Report Patient Name: KANDACE COLEPatient ID: [id number] : [id number] Date: 04/27/2020 10:17:22 AM Gender: FAccession #: [id number] Tech: GMLocation: [place] Ref.Provider: Tiffanyight(Cm): 152 BSA: 1.73Weight(Kg): 75.75 Heart [...] 0.40 - 0.80 ] m/s MV Decel [id number] [ 150 - 200 ] msec PV Peak Vel1.35 [ 0.40 - 0.80 ] m/s E'0.07 E/E' 14 Findings: Interpretation Site: Exam was interpreted at [facility]. Left Ventricle: Normal left ventricular systolic function. [...] Signed By: Yusuf Novak MD 2020-04-27 12:39:52 BUSINESS ANALYST INTERN Zaina Murillo MD CV ECHO PROCEDURES F inal Result * POCT lipid panel (04/11/2020 11:01 AM BUSINESS ANALYST INTERN) Cholesterol, POC 160 mg/dL Comment:GLU = 162 HDL, POC 42 mg/dL Triglycerides, POC 253 mg/dL LDL Cholesterol POC 67 mg/dL Chol/HDL Ratio, POC 3.8 Non-HDL Cholesterol, POC 118 mg/dL Cholesterol Total, POC 160 mg/dL Capillary blood 04/11/2020 1 1:01 AM BUSINESS ANALYST INTERN us Zaina Murillo MD POINT OF CARE [...] 04/07/2020 added in this encounter Care Teams Manufacturing Test Technician Relationship Specialty Start Date End Date Karrie Tompkins MD PCP - General Family Medicine 11/21/18 01/19/24 documented as of this encounter
--- OUTSIDE RECORDS SUMMARY | 2024-04-12 16:35 | XMS_ITS | Encounter Summary ---
Author Organization [facility] Address [address] [place] [address] Phone Care Team Providers Care Lithographic Photographer Name Role Phone Karrie Tompkins MD Primary Care Provider + Encounter Details Date Type Department Care Team (Late st Contact Info) Description 12/01/2021 Orders Only [facility] Neurosurgery [address] [facility] [address] [place] [phone] Landon Lopes, DO [address] [place] [address] Neck pain (Primary Dx) Social History Tobacco [...] on file Legal Sex Female 8:14 PM COOK CAMP Gender Identity Not on file Sexual Orientation Not on file documented as of this encounter Plan of Treatment Not on file documented as of this encounter Visit Diagnoses Diagnosis Neck pain- Primary Cervicalgia documented in this encounter Care Teams Lithographic Photographer Relationship Specialty Start Date End Date Karrie Tompkins MD PCP - General Family Medicine 11/21/18 01/19/24 documented as of this encounter
--- OUTSIDE RECORDS SUMMARY | 2024-04-12 16:35 | XMS_ITS | Encounter Summary ---
Author Organization [facility] Address [address] [place] [address] Care Team Providers Care Curling Machine Operator Name Role Phone Karrie Tompkins MD Primary Care Provider + Reason for Visit * Reason Comments Follow-up 6 mo follow up on HT N, ANN, HLD Encounter Details Date Type Department Care Team (Late Contact Info) Description 10/10/2020 11:00 AM CDT Office Visit [facility] Cardiology [address] [facility] [address] [place] [address] Ori Murillo MD [address] [place] [address] Dyspnea on exertion (Primary Dx); Essential [...] on file Legal Sex Female 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 04/06/2019 follow-up visit with PLASTERER ROUGH: She returns for follow-up of her dyspnea [...] chest pain recently. 10/12/2019 follow-up visit with PLASTERER ROUGH: She returns for six-month follow-up. She reports [...] unspecified whether stage 3a or 3b CKD ([facility]) Plan/Recommendations: Her dyspnea on exertion is [...] in the past that was evaluated by woodworking machine offbearer in the [facility] area where she previously lived. I was [...] This note is dictated and transcribed using Playnery Direct Software. Retail Salesman variancesmay occur. Despite proofreading, typographical errors may [...] 10/16/2021 added in this encounter Care Teams Curling Machine Operator Relationship Specialty Start Date End Date Karrie Tompkins MD PCP - General Family Medicine 11/21/18 01/19/24 documented as of this encounter
--- OUTSIDE RECORDS SUMMARY | 2024-04-12 16:35 | XMS_ITS | Encounter Summary ---
Author Organization [facility] Address [address] [place] [address] Care Team Providers Care Binding Cutter Synthetic Cloth Name Role Phone Karrie Tompkins MD Primary Care Provider + Encounter Details Date Type Department Care Team (Late st Contact Info) Description 04/06/2019 Telephone [facility] Cardiology [address] [place] [address] [place] [address] [place] [address] Social History Tobacco Use Types Packs/Day Years [...] on file Legal Sex Female 8:14 PM TOP CAGER Gender Identity Not on file Sexual Orientation Not on file documented as of this encounter Miscellaneous Notes * Telephone Encounter - Junie Holliday MA - 04/06/2019 2:56 PM CST Stanislav Torres lm for medical records at [phone] also faxed for request at [phone] [facility], CAGER documented in this encounter Plan of Treatment Not on file documented as of this encounter Visit Diagnoses Not on filedocumented in this encounter Care Teams Binding Cutter Synthetic Cloth Relationship Specialty Start Date End Date Karrie Tompkins MD PCP - General Family Medicine 11/21/18 01/19/24 documented as of this encounter
--- OUTSIDE RECORDS SUMMARY | 2024-04-12 16:35 | XMS_ITS | Encounter Summary ---
Author Organization [facility] Care Team Providers Care Nursing Home Director Name Role Phone Karrie Tompkins MD [...] on file Legal Sex Female 8:14 PM CAKE DECORATOR Gender Identity Not on file Sexual Orientation Not on file documented as of this encounter Plan of Treatment Not on file documented as of this encounter Visit Diagnoses Not on filedocumented in this encounter Care Teams Nursing Home Director Relationship Specialty Start Date End Date Karrie Tompkins MD PCP - General Family Medicine 11/21/18 01/19/24 documented as of this encounter
--- OUTSIDE RECORDS SUMMARY | 2024-04-12 16:35 | XMS_ITS | Encounter Summary ---
Author Organization [facility] Address [address] [place] [address] Care Team Providers Care Padded Products Finisher Name Role Phone Karrie Tompkins MD Primary Care Provider + Reason for Visit * Reason Comments Follow-up 1 yr f/u Hypertension Hyperlipidemia Encounter Details Date Type Department Care Team (Latest Contact Info) Description 10/22/2022 11:30 AM CDT Office Visit [facility] Cardiology [address] [place] [address] Ori Murillo MD [facility] [address] Mixed hyperlipidemia (Primary Dx); Primary [...] on file Legal Sex Female 8:14 PM SOAP TENDER Gender Identity Not on file Sexual [...] Murillo MD - 10/22/2022 11:30 AM CDT [facility] Cardiology [address] [place] [address] Date of Visit: 10/22/2022 Patient ID: Kandace [...] for dyspnea on exertion. Patient was in [place] and moved to this area recently. She was evaluated in [place] by stress test about couple years ago that was unremarkable. 02/23/2019 initial consultation: Complains of dyspnea on exertion for the last couple years specially walking half a mi or going up stairs. She did have chest pain, left-sided aggravated by moving the left shoulder and stress test in [place] to was negative. She admits to heartburn when she eats and relieved by antacids. This has not changed form many years. Denies lower limb edema, orthopnea, parox ysmal nocturnal dyspnea, dizziness, syncope. She reports that she was exposed to secondhand smokingall her life. Head brother at age 69 with massive myocardial infarction. 04/06/2019 follow-up visit with POLICE OR PATROL PARK OFFICER: She returns for follow-up of her [...] chest pain recently. 10/12/2019 follow-up visit with POLICE OR PATROL PARK OFFICER: She returns for six-month follow-up. She [...] palpitations at night. 10/16/2021 follow-up visit with POLICE OR PATROL PARK OFFICER: She is here for annual follow-up. Over [...] the last year. 04/12/2022 office visit with POLICE OR PATROL PARK OFFICER. She returns to the office at my [...] facial fractures, and she was transferred from [place] to [facility] for further evaluation and treatment. [...] grandson. She underwent upper back surgery at [facility] in May 2022 and did well. Shortness of breath on exertion is better than before. Denies chest pain, lower extremity edema, palpitations, dizzinessor syncope. She did gain 10 lb compared to last visit. Medical History: Past Medical History: Diagnosis Date Ferrell's esophagus COPD (chronic obstructive pulmonary disease) ([facility]) Depression Heart murmur Hyperlipidemia Hypertension Iron deficiency [...] by mouth nightly, Disp: , Rfl: vitamins A,C,D-frwd-rgdsbj (PreserVision AREDS) 2,148 mcg-113 mg-45 mg-17.4mg tablet, [...] and triglycerides 211. CKD is followed by kitchen assistant Dr. Reyna. Continue Nephrology follow-up. She takes Lasix 20 mg every other day. Keep the previously scheduled follow-up with Dr. Murillo in 12months. Call us sooner with questions or concerns. Ori Murillo MD This note is dictated and transcribed using Occlutech Direct Software. Mechanism Assembler variancesmay occur. Despite proofreading, typographical errors may [...] abnormality documented in this encounter Care Teams Padded Products Finisher Relationship Specialty Start Date End Date Karrie Tompkins MD PCP - General Family Medicine 11/21/18 01/19/24 documented as of this encounter
--- OUTSIDE RECORDS SUMMARY | 2024-04-12 16:35 | XMS_ITS | Encounter Summary ---
Author Organization [facility] Address [address] [facility] [address] [place] [address] Care Team Providers Care Rug Repairer Name Role Phone Karrie Tompkins MD Primary Care Provider + Reason for Visit * Reason Comments Shortness of Breath Hypertension Encounter Details Date Type Department Care Team (Late st Contact Info) Description 10/12/2019 10:30 AM CDT Office Visit [facility] Cardiology [address] [facility] [address] [place] [address] Rhea Torres, NEAL [address] [facility] [address] [place] [address] Dyspnea on exertion (Primary Dx); [...] on file Legal Sex Female 8:14 PM VIDEO GAME TECHNICIAN Gender Identity Not on file Sexual [...] Body Mass Index 31.37 04/06/2019 10:42 AM VIDEO GAME TECHNICIAN documented in this encounter Patient Instructions * [...] Torres NP - 10/12/2019 10:30 AM CDT [facility] Cardiology [address] [place] [address] Date of Visit: 10/12/2019 Patient ID: Kandace [...] massive myocardial infarction. 04/06/2019 follow-up visit with SPECIFICATIONS CHECKER: She returns for follow-up of her dyspnea [...] chest pain recently. 10/12/2019 follow-up visit with SPECIFICATIONS CHECKER: She returns for six-month follow-up. She reports [...] in the past that was evaluated by research software engineer [facility] area where she previously lived. I [...] This note is dictated and transcribed using [email or web address] Fluency Direct Software. Stacker Attendant variancesmay occur. Despite proofreading, typographical errors may [...] 1 added in this encounter Care Teams Rug Repairer Relationship Specialty Start Date End Date Karrie Tompkins MD PCP - General Family Medicine 11/21/18 01/19/24 documented as of this encounter
--- OUTSIDE RECORDS SUMMARY | 2024-04-12 16:35 | XMS_ITS | Encounter Summary ---
Author Organization [facility] Address [address] [facility] [place] [address] Care Team Providers Care Inventory Associate And Driver Name Role Phone Karrie Tompkins MD Primary Care Provider + Reason for Visit * Reason Comments New Patient DYSPNEA * Cardiology (Routine) - Closed Specialty Diagnoses / Procedures Referred By Contac t Referred To Contact Cardiology Diagnoses Dyspnea, unspecified type Karrie Tompkins MD Phone: tel: fax: [facility] [address] [place] [address] [place] [address] Phone: tel: fax: Referral ID Status Reason Start Date Expiration Date V isits Requested Visits Authorized [id number] Closed Specialty Services Required 11/21/2018 06/01/2020 1 1 Encounter Details Date Type Department Care Team (Late Contact Info) Description 02/23/2019 9:30 AM LOCAL DRIVER Office Visit [facility] [address] [place] [address] [address] [place] [address] Ori Murillo MD [address] [place] [address] Dyspnea on exertion (Primary Dx); Dyspnea, unspecified type; Essential hypertension; Mixed hyperlipidemia; Type 2 diabetes mellitus with stage 3 chronic kidney disease, without long-term current use of insulin ([facility]) Social History Tobacco Use Types Packs/Day Years [...] on file Legal Sex Female 8:14 PM LOCAL DRIVER Gender Identity Not on file Sexual Orientation Not on file documented as of this encounter Last Filed Vital Signs Vital Sign Reading Time Taken Comments Blood Pressure 120/60 02/23/2019 9:22 AM LOCAL DRIVER Pulse 71 02/23/2019 9:22 AM LOCAL DRIVER Temperature - - Respiratory Rate - - Oxygen Saturation 98% 02/23/2019 9:22 AM LOCAL DRIVER Inhaled Oxygen Concentration - - Weight 72.1 kg (159 lb) 02/23/2019 9:22 AM LOCAL DRIVER Height 154.9 cm (5' 1 ) 02/23/2019 9:22 AM LOCAL DRIVER Body Mass Index 30.04 02/23/2019 9:22 AM LOCAL DRIVER documented in this encounter Progress Notes * [...] Normal sinus rhythm Echo 10/30/2018. Done at [facility]. Ejection fraction 65%, abnormal diastolic function, ASSESSMENT Diagnoses and all orders for this visit: Dyspnea on exertion (Primary) Dyspnea, unspecified type - Ambulatory referral to Cardiology Essential hypertension Mixed hyperlipidemia Type 2 diabetes mellitus with stage 3 chronic kidney disease, without long-term current use of insulin ([facility]) PLAN/RECOMMENDATIONS -in regards for dyspnea on exertion, the echocardiogram shows normal systolic function and abnormaldiastolic function. She looks euvolemic on physical exam today. We will obtain the stress test results that were done in [place] 2 years ago. COPD can contribute to [...] office in 6 weeks. Ori Murillo MD L DRIVER documented in this encounter Miscellaneous Notes * Addendum Note - Junie Oro MA - 02/23/2019 9:30 AM CSTAddended by: JUNIE ORO on: 02/23/2019 05:42 PM Modules accepted: Orders L DRIVER documented in this encounter Plan of Treatment Not on file documented as of this encounter Procedures Procedure Name Priority Date/Time Associated Diagnosis Comments POCT LIPID PANEL Routine 02/23/2019 5:40 PM LOCAL DRIVER Mixed hyperlipidemia documented in this encounter Results * POCT lipid panel (02/23/2019 5:40 PM LOCAL DRIVER) Cholesterol, POC 158 mg/dL HDL, POC 33 mg/dL Triglycerides, POC 178 mg/dL LDL Cholesterol POC 89 mg/dL Chol/HDL Ratio, POC 4.7 Non-HDL Cholesterol, POC 124 mg/dL Cholesterol Total, POC 158 mg/dL Blood specimen (specimen) 02/23/2019 5:40 PM LOCAL DRIVER Ori Murillo MD POINT OF CARE TEST O RDERABLES Final Result documented in this encounter Visit Diagnoses Diagnosis Dyspnea on exertion- Primary Other dyspnea and respiratory abnormality Dyspnea, unspecified type Essential hypertension Unspecified essential hypertension Mixed hyperlipidemia Type 2 diabetes mellitus with stage 3 chronic kidney disease, without long-term current use of insulin ([facility]) documented in this encounter Historical Medications * [...] 02/23/2019 documented in this encounter Care Teams Inventory Associate And Driver Relationship Specialty Start Date End Date Karrie Tompkins MD PCP - General Family Medicine 11/21/18 01/19/24 documented as of this encounter
--- OUTSIDE RECORDS SUMMARY | 2024-04-12 16:35 | XMS_ITS | Encounter Summary ---
Author Organization [facility] Address [address] [place] [address] Care Team Providers Care Sales Expert Home Theater Name Role Phone Karrie Tompkins MD Primary Care Provider + Reason for Visit * Reason Onset Date Comments Reschedule 04/10/2021 Encounter Details Date Type Department Care Team (Late st Contact Info) Description 04/10/2021 Telephone [facility] Cardiology [address] [place] [address] Yaritza [place] MA Reschedule Social [...] on file Legal Sex Female 8:14 PM BUTTON TACKER Gender Identity Not on file Sexual Orientation Not on file documented as of this encounter Miscellaneous Notes * Telephone Encounter - Yaritza [place] MA - 04/10/2021 3:25 PM CST 04/10/21- YURY we need to r/s. EMMIE out of office on 04/17/21 ON TACKER documented in this encounter Plan of Treatment Not on file documented as of this encounter Visit Diagnoses Not on filedocumented in this encounter Care Teams Sales Expert Home Theater Relationship Specialty Start Date End Date Karrie Tompkins MD PCP - General Family Medicine 11/21/18 01/19/24 documented as of this encounter
--- OUTSIDE RECORDS SUMMARY | 2024-04-12 16:35 | XMS_ITS | Encounter Summary ---
Author Organization [facility] Address [address] [place] [address] Care Team Providers Care Gambling Monitor Name Role Phone Karrie Tompkins MD Primary Care Provider + Reason for Visit * Reason Onset Date Comments Retrieved outside records 04/30/2019 Encounter Details Date Type Department Care Team (Late st Contact Info) Description 04/30/2019 Documentation [facility] Cardiology [address] [facility] [address] [facility] [address] [place] [address] Rhea Torres NP [address] [place], [place] [id number] Retrieved outside records Social History Tobacco Use [...] on file Legal Sex Female 8:14 PM FORMING TUBE SELECTOR Gender Identity Not on file Sexual Orientation [...] werenot able to retrieve the stress test. ING TUBE SELECTOR documented in this encounter Plan of Treatment Not on file documented as of this encounter Visit Diagnoses Not on filedocumented in this encounter Care Teams Gambling Monitor Relationship Specialty Start Date End Date Karrie Tompkins MD PCP - General Family Medicine 11/21/18 01/19/24 documented as of this encounter
--- OUTSIDE RECORDS SUMMARY | 2024-04-12 16:35 | XMS_ITS | Encounter Summary ---
Author Organization [facility] Facility Care Team Providers Care Stadium Manager Name Role Phone Karrie Tompkins MD [...] on file Legal Sex Female 8:14 PM TUBE TESTER Gender Identity Not on file Sexual Orientation Not on file documented as of this encounter Plan of Treatment Not on file documented as of this encounter Visit Diagnoses Not on filedocumented in this encounter Care Teams Stadium Manager Relationship Specialty Start Date End Date Karrie Tompkins MD PCP - General Family Medicine 11/21/18 01/19/24 documented as of this encounter
--- OUTSIDE RECORDS SUMMARY | 2024-04-12 16:35 | XMS_ITS | Encounter Summary ---
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 ??There will be no report generated by a [facility] Radiologist. Narrative RAD_PACS_[facility] - 11/30/2021 7:47 AM CDT EXAMINATION: ??Images For Reference Purposes Only us Sky Leon MD PhD IMG CT PROCEDURES Final R esult RAD_PACS_[facility] documented in this encounter Visit Diagnoses Not on filedocumented in this encounter Care Teams Fur Ironer Relationship Specialty Start Date End Date Karrie Tompkins MD PCP - General Family Medicine 11/21/18 01/19/24 documented as of this encounter
--- OUTSIDE RECORDS SUMMARY | 2024-04-12 16:35 | XMS_ITS | Encounter Summary ---
Author Organization [facility] Address [address] [facility] [address] [facility] [address] [place] [address] Care Team Providers Care Room Clerk Name Role Phone Karrie Tompkins MD Primary Care Provider + Reason for Visit * Reason Comments Follow-up HTN,HLD Encounter Details Date Type Department Care Team (Late st Contact Info) Description 04/06/2019 10:30 AM INDUSTRIAL GAS PRODUCTION OPERATOR Office Visit [facility] Cardiology [address] [facility] [address] [place] [address] Rhea Torres, NEAL [address] [facility] [address] [place] [address] Dyspnea on exertion (Primary Dx); [...] on file Legal Sex Female 8:14 PM INDUSTRIAL GAS PRODUCTION OPERATOR Gender Identity Not on file Sexual Orientation Not on file documented as of this encounter Last Filed Vital Signs Vital Sign Reading Time Taken Comments Blood Pressure 140/76 04/06/2019 10:42 AM INDUSTRIAL GAS PRODUCTION OPERATOR Pulse 68 04/06/2019 10:42 AM INDUSTRIAL GAS PRODUCTION OPERATOR Temperature - - Respiratory Rate - - Oxygen Saturation 99% 04/06/2019 10:42 AM INDUSTRIAL GAS PRODUCTION OPERATOR Inhaled Oxygen Concentration - - Weight 69.4 kg (153 lb) 04/06/2019 10:42 AM INDUSTRIAL GAS PRODUCTION OPERATOR Height 154.9 cm (5' 1 ) 04/06/2019 10:42 AM INDUSTRIAL GAS PRODUCTION OPERATOR Body Mass Index 28.91 04/06/2019 10:42 AM INDUSTRIAL GAS PRODUCTION OPERATOR documented in this encounter Progress Notes [...] for dyspnea on exertion. Patient was in [place] and moved to this area recently. She was evaluated in [place] by stress test about couple years ago that was unremarkable. 02/23/2019 initial consultation: Complains of dyspnea on exertion for the last couple years specially walking half a mi or going up stairs. She did have chest pain, left-sided aggravated by moving the left shoulder and stress test in [place] to was negative. She admits to heartburn when she eats and relieved by antacids. This has not changed form many years. Denies lower limb edema, orthopnea, parox ysmal nocturnal dyspnea, dizziness, syncope. She reports that she was exposed to secondhand smokingall her life. Head brother at age 69 with massive myocardial infarction. 04/06/2019 follow-up visit with PROJECT MANAGER/TEAM COACH: She returns for follow-up of her dyspnea [...] copy of her stress test done at pharmacovigilance scientist's office in the [facility] area couple of years ago. Counseling performed at this visit included signs and symptoms of CHF exacerbation and the difference between cardiac and noncardiac chest pain. Return to the office to see Dr. Murillo in 6 months. Call us sooner with questions or concerns. Rhea Torres, CYNDI- Nurse Practitioner with [facility] This note is dictated and transcribed using [employer] Software. Steam Plant Operator variancesmay occur. Despite proofreading, typographical errors may occur. Cosigned by Ori Murillo MD at 04/07/2019 3:22 PM INDUSTRIAL GAS PRODUCTION OPERATOR STRIAL GAS PRODUCTION OPERATOR STRIAL GAS PRODUCTION OPERATOR documented in this encounter Plan of [...] 04/11/2020 added in this encounter Care Teams Room Clerk Relationship Specialty Start Date End Date Karrie Tompkins MD PCP - General Family Medicine 11/21/18 01/19/24 documented as of this encounter
--- OUTSIDE RECORDS SUMMARY | 2024-04-12 16:39 | XMS_ITS | Continuity of Care Document ---
Author Organization [facility] Address [address] [place] [address] Phone Care Team Providers Care Smoking Tobacco Packing Machine Hand Name Role Phone Daniel Corrales MD Unavailable Unavailable Procedures Procedure Date Special Reports Or Forms Miscellaneous Advance Directives Directive Yes / No Effective Date File Name No Information Encounters Encounter Description Practice Location Reason(s) For Visit Diagnoses Date Provider Providers Copied on Encounter [facility], [address] [place], [place] [address], [place], [place], [id number], tel:[phone] [facility] No Information [address] [place], [id number], [place]. tel:[phone] [facility], [address] [place], [place] [address], [place], [place], [id number], tel:[phone] [facility] No Information [address] [facility] [place], [id number], [place]. tel:[phone] Family History Family Member Type Diagnosis Age [...]
--- NOTE | 2024-04-12 17:39 | P.PNIM_ITS ---
Progress Note: A&P Assessment and Plan (1) Acute kidney injury (JAE) with acute tubular necrosis (ATN): Code(s): N17.0 - Acute kidney failure with tubular necrosis Status: Acute Assessment and Plan: Patient received IV contrast on 04/04/24 with already underlying CKD now with worsening renal failure * Baseline Cr around 2.00. * Avoid nephrotoxic drugs. * Avoid NSAIDs. * Routine CMP monitoring GFR. * Monitor electrolytes especially potassium. 04/06/2024 * Worsening Cr 4.40 today could be secondary Anesthesia from EGD * NS 75 D/C D/5 * nephrology consulted for further recommendations and evaluation * bilateral renal ultrasound * Cipro D/c switched to Rocephin 04/07/2024: * Worsening Cr 5.16 * CT showing contrast in Kidneys from 3 days prior and anasarca in the stomach * failed fluid challenge will D/C * no urinary output Pedro placed with only 50 mL * Plan for renal function in the AM if no improvement hoping for renal recovery but may need temporary dialysis with consult to surgery for dialysis access. * Potassium 5.2 dose of Lokelma 04/08: JAE continues to worsen, acidosis continues to worsen, declining mental status with slurred speech and patient stating that she believes she a stroke, MRI ordered, several medications held this afternoon. Nephrology aware as I spoke with Dr. Reyna earlier and RN called to update with worsening clinical picture. 04/09 pt to have Cam placed today to start temp dialysis soon 04/10: pt sp dialysis yesterday and today, unfortunately pt has no fluid off 04/11 * Creatinine 3.19, currently receiving HD 04/12/ Cr 2.37 from 3.19 yesterday. - Seen by nephro and possibly HD tomorrow or day after. - Continue to monitor renal panel closely. - Continue to avoid nephrotoxins. 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 04/12 Hgb 6.7 earlier but repeat 7.2 Continue to monitor Hgb closely. Continue oral PPI. (3) Colitis: Code(s): K52.9 - Noninfective gastroenteritis and colitis, unspecified Status: Acute Assessment and Plan: CT abdomen showing colitis/There is an approximately 11.4 x 24 mm fatty lesion within the hepatic flexure of the colon, most consistent with a lipoma. This type of lesion can erode and cause rectal bleeding. * GI consulted * GI recommended ciprofloxacin and Flagyl * will need follow-up colonoscopy in 6-8 weeks after infectious process resulting unless her hemoglobin continues to trend down * PPI BID * clear liquid diet * WBC 12.2 today * Stool studies pending * bright red blood in stool reported * monitoring HGB 04/06/2024 * patient advanced to low-fiber diet but had N/V change back to clear liquid * F/U ct ABD * Hgb stable 04/08: Tolerated clears but altered LOC and slurred speech today, patient moved to IMU after findings of metabolic acidosis with incomplete compensation. 04/09 : pt remains acidotic awaiting dialysis, creat is 6.9, potassium is 5, ph is low, sodium is 125 04/10: ph is improving, creat is 4, sodium is 125 sp 2 dialysis sessions 04/12: Denies any diarrhea episodes today. Tolerating renal diet well so far. C-diff negative. Continue to monitor for acute symptoms. (4) Chronic kidney disease, stage IV (severe): Code(s): N18.4 - Chronic kidney disease, stage 4 (severe) Status: Acute Assessment and Plan: * Gentle IV hydration. * Baseline around 2.00 currently 3.00 04/05/24 * Avoid nephrotoxic drugs. * Monitor antihypertensive drug therapy. * Avoid NSAIDs. * Routine CMP monitoring GFR. * Monitor electrolytes especially potassium. * Antibiotic doses depending on creatinine clearance. * Pharmacy does medications. * Routine follow-up with Nephrology as an outpatient. 04/06/2024 * Worsening Cr 4.40 today could be secondary Anesthesia from EGD * NS 75 D/C D/ * nephrology consulted for further recommendations and evaluation * bilateral renal ultrasound * Cipro D/c switched to Rocephin 04/08: Tolerated clears but altered LOC and slurred speech today, patient moved to IMU after findings of metabolic acidosis with incomplete compensation. Potentially encephalopathy due to build up of sedating medications. MRI ordered to assess for Stroke. 04/11 * Mental status clinically improving with HD and 04/10 MRI with 'normal aging brain' * 04/12 Appears to be improving clinically and with labs. Nephro following and possible dialysis tomorrow or day after. HD catheter to Left Groin. Continue to avoid nephrotoxins. Meds dosing per renal function. (5) Chronic anemia: Code(s): D64.9 - Anemia, unspecified Status: Chronic Assessment and Plan: patient's baseline is usually hemoglobin of 10 to 11 likely secondary to her chronic kidney disease but possible active GI bleed currently * Monitor HGB * Transfuse PRBC if Hgb <7.0 * hemodynamically stable 04/08: Hgb 7.9 in AM and 8.9 in afternoon 04/09: hb is 8 today 04/11 hgb 7.5, continue to trend 04/12/ Initial Hgb 6.7 and repeat level 7.2 Continue to monitor Hgb closely. Transfuse for Hgb <7 EGD showing Ferrell's Esophagus with dysplasia, no active bleeding. 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 * Continue to monitor H&H closely. (7) Hypertension: Code(s): I10 - Essential (primary) hypertension Status: Acute Assessment and Plan: reviewed and currently well controlled (8) Hypomagnesemia: Code(s): E83.42 - Hypomagnesemia Status: Acute Assessment and Plan: * Mag 1.1 * replenished with 4g * trend and replenish as needed RESOLVED (9) Hyponatremia: Code(s): E87.1 - Hypo-osmolality and hyponatremia Status: Acute Assessment and Plan: * chronically low, likely related to CKD. * no focal neurological deficits noted. * Further mgt per production graphic designer. (10) Metabolic acidosis: Code(s): E87.20 - Acidosis, unspecified Status: Acute Assessment and Plan: - Previously on IV and PO sodium bicarbonate. - Currently resolved. (11) Encephalopathy acute: Code(s): G93.40 - Encephalopathy, unspecified Status: Acute Assessment and Plan: 04/08: patient with slurred speech difficulty awakening concerned for CO2 narcosis ABG resulted metabolic acidosis, beta hydroxybutyrate and lactic acid normal metabolic acidosis related to decreased renal function ammonia level negative, MRI brain without contrast also negative 04/09 likely secondary to uremia and severe MA 04/10 pt appears less confused today states she feels very tired 04/11 oriented x3, alert, continue to monitor 04/12: Well oriented with no focal neuro deficits noted. Time Spent With Patient Time with patient: 15 - 25 minutes Subjective Date/time seen: 04/12/24 10:30 Patient states she feels alright and has no distressful symptoms. Pt states she was having diarrhea previously but no episodes yet today. Interval history: Patient calm on bedrest with some generalized weakness but not in any acute distress. Review of Systems Review of Systems: No specific complaints All systems reviewed & are unremarkable except as noted in HPI and below Exam Narrative: HEENT: PERRL, sclerae nonicteric, pharyngeal mucosa pink and intact NECK: Supple, No JVD, adenopathy, or thyromegaly CHEST: Crackles to bases. HEART: NL S1/S2, regular, no murmur ABDOMEN: BS+, soft, nontender, no mass, no bruits EXTREMITIES: No cyanosis, edema, or clubbing. Dialysis catheter to Left. Groin. NEUROLOGIC: CN intact and symmetric to inspection. MUSCULOSKELETAL: Tone and strength symmetric, but diminished in LE's. PSYCH: Alert. Oriented to person, place, and time (month & year). Objective Data Vital Signs Vital Signs: Vital Signs - 24 hr 04/11/24 18:16 04/11/24 20:00 04/11/24 20:20 Temperature 97.5 F L 97.9 F Pulse Rate 82 87 Respiratory Rate 16 16 Blood Pressure 166/63 H 150/54 H Pulse Oximetry 98 99 Oxygen Delivery Room Air 04/12/24 08:00 04/12/24 14:00 Temperature 97.6 F Pulse Rate 85 Respiratory Rate 16 Blood Pressure 134/80 Pulse Oximetry 97 Oxygen Delivery Room Air Intake/Output Intake/Output: Intake & Output 04/09/24 04/10/24 04/11/24 04/12/24 23:59 23:59 23:59 23:59 Intake Total 240 1105 1290 Output Total 0 125 1175 200 Balance 0 115 -70 1090 Meds/Results Medications: Active Medications Generic Name Dose Route Start Last Admin Trade Name Freq PRN Reason Stop Dose Admin Acetaminophen 650 mg 04/04/24 12:10 04/12/24 02:17 Acetaminophen 325 Mg Tablet PO 650 mg Q4H PRN Administration Mild Pain (1-3) or Fever Amlodipine Besylate 2.5 mg 04/12/24 12:45 04/12/24 13:08 Amlodipine Besylate 2.5 Mg Tablet PO 2.5 mg QAM JUAN PABLO Administration Artificial Tears 1 drop 04/04/24 20:15 Artificial Tears Ophth Soln 15 Ml Bottle EACH EYE Q4H PRN Dry Eye(S) Calcitriol 0.25 mcg 04/06/24 09:00 04/10/24 09:02 Calcitriol 0.25 Mcg Capsule BY MOUTH 0.25 mcg [id number] JUAN PABLO Administration Dextrose 12.5 gm 04/04/24 21:51 Dextrose 50% 25 Gm/50 Ml Syringe IV PUSH PRN PRN Hypoglycemia Protocol Famotidine 10 mg 04/10/24 09:00 04/12/24 09:26 Famotidine 10 Mg Tablet PO 10 mg DAILY JUAN PABLO Administration Glucagon 1 mg 04/04/24 21:51 Glucagon For Inj 1 Mg Vial IM PRN PRN Hypoglycemia Protocol Glucose 15 gm 04/04/24 21:51 Glucose Oral Gel 15 Gm Of Glucse In 37.5 Gm Tube PO PRN PRN Hypoglycemia Protocol Dextrose 1,000 mls @ 100 mls/hr 04/04/24 21:51 Dextrose 5% 1,000 Ml IVPB PRN PRN Hypoglycemia Protocol Albumin Human 50 mls @ 999 mls/hr 04/09/24 11:16 Albutein IVPB 05/09/24 11:15 Q10M PRN HYPOTENSION Latanoprost 1 drop 04/05/24 09:00 04/12/24 09:31 Latanoprost 0.005% Op Soln 2.5 Ml Btl EACH EYE Not Given DAILY JUAN PABLO Loratadine 10 mg 04/04/24 20:25 04/12/24 02:21 Loratadine 10 Mg Tablet PO 10 mg QAM PRN Administration allergy symptoms Ondansetron HCl 4 mg 04/04/24 12:10 04/11/24 16:07 Ondansetron Inj 4 Mg/2 Ml Vial IV PUSH 4 mg Q4H PRN Administration Nausea Pravastatin Sodium 40 mg 04/05/24 09:00 04/12/24 09:26 Pravastatin Sodium 20 Mg Tablet PO 40 mg DAILY JUAN PABLO Administration Vitamin D 2,000 units 04/05/24 09:00 04/12/24 09:26 Cholecalciferol 1,000 Units Tablet PO 2,000 units BID JUAN PABLO Administration Radiology Results: ITS Impressions Renal Ultrasound 04/06/24 11:46 Impression: Unremarkable ultrasound of the kidneys. Cholelithiasis and gallbladder sludge incidentally noted. Abdomen/Pelvis CT 04/06/24 19:19 IMPRESSION: Left basilar infiltrate with a small right-sided pleural effusion, an interval change from 04/04/2023. Marked delayed excretion within the bilateral kidneys, consistent with patient's history. Fluid distention of the stomach, extending to the proximal jejunum consistent with patient's history Mural thickening within the rectosigmoid colon with multiple diverticula and trace surrounding inflammatory change, similar in appearance to examination dated 04/04/2024. No drainable fluid collections or gross perforation is noted. Interval development of significant anasarca and retroperitoneal inflammatory change. Brain MRI 04/08/24 17:05 IMPRESSION: 1. Normal aging brain. Chest X-Ray 04/10/24 08:29 Impression: 1: No acute cardiopulmonary disease. Labs Labs: Laboratory Results - last 24 hr 04/12/24 04/12/24 04/12/24 00:27 06:23 06:36 WBC 11.0 H RBC 2.14 L Hgb 6.7 L* Hct 21.0 L MCV 98.1 MCH 31.3 MCHC 31.9 L RDW 14.5 Plt Count 219 MPV 9.5 Sodium 128 L Potassium 3.3 L Chloride 95 L Carbon Dioxide 29 Anion Gap 4 BUN 13 D Creatinine 2.37 H Estim Creat Clear Calc Not Reportable Estimated GFR 20 L Glucose 98 POC Capillary Glucose 113 H 99 Calcium 8.0 L Magnesium 1.9 Total Bilirubin 0.4 AST 20 ALT 9 Alkaline Phosphatase 51 Total Protein 5.0 L Albumin 2.6 L C. difficile (PCR) 04/12/24 04/12/24 04/12/24 11:51 12:34 13:29 WBC RBC Hgb 7.2 L Hct 22.4 L MCV MCH MCHC RDW Plt Count MPV Sodium Potassium Chloride Carbon Dioxide Anion Gap BUN Creatinine Estim Creat Clear Calc Estimated GFR Glucose POC Capillary Glucose 122 H Calcium Magnesium Total Bilirubin AST ALT Alkaline Phosphatase Total Protein Albumin C. difficile (PCR) Negative Quality VTE Prophylaxis VTE prophylaxis: mechanical ordered Hospitalist MIPS Advance Care Plan I have confirmed that the patient's Advanced Care Plan is present, code status is documented, or surrogate decision maker is listed in patient medical record.: Yes Medication Reconciliation I have utilized all available resources to obtain, update and review the patients current medications (includes all prescriptions, OTC, herbals, cannabis, and nutritional supplements).: Yes
[2024-04-12 18:10] LABS: Glucose Point of Care 123 mg/dl (65-105)
[2024-04-12 20:00] VITALS: BP 164/55; PULSE 84; RESP 14; TEMP 36.3; O2SAT 97
[2024-04-12 20:33] VITALS: BP 134/81; PULSE 83; RESP 16; TEMP 36.4; O2SAT 100
[2024-04-12 21:45] LABS: Glucose Point of Care 117 mg/dl (65-105)
[2024-04-13 04:49] VITALS: BP 171/57; PULSE 81; RESP 14; O2SAT 98
[2024-04-13 06:42] LABS: Hematocrit 21.8 % (37.0-47.0); Mean Corpuscular HGB Conc 32.1 g/dl (32-36); Mean Corpuscular Hemoglobin 31.5 pg (26-34); Mean Corpuscular Volume 98.2 fl (80-100); Platelet Count Result 235 k/mm3 (150-375); Red Blood Count 2.22 M/mm3 (4.2-5.4); Red Cell Distribution Width 14.2 % (11.5-14.5); White Blood Count 10.8 K/mm3 (4.5-10.0)
[2024-04-13 06:53] LABS: Alanine Aminotransferase 11 U/L (6-35); Albumin Level 2.8 g/dL (3.5-5.1); Alkaline Phosphatase 51 U/L (38-126); Anion Gap 3 mmol/L (4-12); Aspartate Amino Transferase 24 U/L (14-36); Bilirubin,Total 0.5 mg/dL (0.2-1.3); Blood Urea Nitrogen 17 mg/dL (7-17); Carbon Dioxide 28 mmol/L (22-30); Chloride 95 mmol/L (98-107); Estimated Glomerular Filt Rate 17; Glucose 79 mg/dL (65-110); Magnesium 1.9 mg/dL (1.6-2.3); Potassium 3.4 mmol/L (3.4-5.0); Sodium 126 mmol/L (137-145)
[2024-04-13] MEDS: PRAVASTATIN SODIUM 20 MG TABLET 40 MG PO (08:30)
[2024-04-13] MEDS: FAMOTIDINE 10 MG TABLET PO (08:30)
[2024-04-13] MEDS: amLODIPine BESYLATE 2.5 MG TABLET PO (08:31)
[2024-04-13] MEDS: CHOLECALCIFEROL 1,000 UNITS TABLET 2000 UNITS PO ×2 (08:31→17:10)
[2024-04-13] MEDS: LATANOPROST 0.005% OP SOLN 2.5 ML BTL 1 DROP EACH EYE (08:31)
[2024-04-13] MEDS: calcitrioL 0.25 MCG CAPSULE BY MOUTH (08:46)
--- NOTE | 2024-04-13 11:16 | P.PNNP_ITS ---
Progress Note: A&P Assessment and Plan (1) JAE (acute kidney injury): Code(s): N17.9 - Acute kidney failure, unspecified Status: Acute Assessment and Plan: * as noted since admission * suspect multifactorial etiology: * prerenal factors * relative hypotension * contrast exposure (CT with contrast on 04/04/24) * LENNIE-I use prior to admission * relative anemia * other (?) * evaluation to date noted: * urine electrolytes prerenal * urine eosinophils negative * UA without evidence of infection * CPK normal * renal ultrasound okay * repeat CT of A/P still notes contrast present in kidneys * started on [employer]OR [employer]/hemodialysis due to anuria and having issues with hyponatremia, worsening metabolic acidosis and possible uremic symptoms... * s/p temporary HD catheter placement on 04/09/23 * HD 04/09, 04/10, and 04/11 * possible dialysis again on 04/14 depending on labs and UOP * possible recovery as noted by increase in urine output? * follow trend of repeat labs and UOP to assess for potential renal recovery (2) Chronic kidney disease, stage IV (severe): Code(s): N18.4 - Chronic kidney disease, stage 4 (severe) Status: Acute Assessment and Plan: * baseline creatinine runs ~ 1.8 - 2.3mg/dl * due hypertension, diabetes, and age-related change with contributions with previous use of NSAIDs (3) Metabolic acidosis: Code(s): E87.20 - Acidosis, unspecified Status: Acute Assessment and Plan: * due to worsening JAE/ARF * corrected with dialysis * follow trend (4) Hyponatremia: Code(s): E87.1 - Hypo-osmolality and hyponatremia Status: Acute Assessment and Plan: * chronic issues at baseline * likely worsened by JAE/ARF * given JAE, sodium tabs on hold * dialysis will correct to some degree * follow trend of sodium level (5) GI bleed: Code(s): K92.2 - Gastrointestinal hemorrhage, unspecified Status: Acute Assessment and Plan: * reported history of vomiting blood [employer] * known history of Barrettt's esophagus * Hgb dropped since admission * GI following: * s/p EGD - no active bleeding with Ferrell's esophagus * on PPI * follow trend of H/H * PRBC transfusion per protocol (6) Colitis: Code(s): K52.9 - Noninfective gastroenteritis and colitis, unspecified Status: Acute Assessment and Plan: * as noted by admission CT of A/P * GI recommendations noted * off antibiotics * advance diet as tolerated (7) Chronic anemia: Code(s): D64.9 - Anemia, unspecified Status: Chronic Assessment and Plan: * probably related to CKD * acute worsening noted since admission * complicated by #5 * Retacrit with HD * follow H/H (8) Hypertension: Code(s): I10 - Essential (primary) hypertension Status: Acute Assessment and Plan: * BP on the soft side since admission * lisinopril on hold due to #1 * follow trend of hemodynamics Will continue to follow. L Subjective Date/time seen: 04/13/24 11:16 Interval history: Follow-up for acute kidney injury/acute renal failure on chronic kidney disease. Chart reviewed since last seen -- last dialysis treatment was on Saturday (04/11) and since that time, urine output seems to be improving in spite of worsening renal function/creatinine; no acute distress noted at the time of my visit; still complaints of weakness + fatigue but no worse than previously; no apparent distress noted. Exam 2 Narrative: General: elderly female in NAD Heart: normal S1 and S2; no rub Lungs: clear to auscultation Abdomen: soft, nondistended, positive bowel sounds Extremities: no cyanosis or clubbing; no edema Skin: warm and intact Objective Data Vital Signs Vital Signs: Vital Signs Temp Pulse Resp BP Pulse Ox O2 Del Method 04/13/24 11:00 98.5 F 95 16 161/61 H 97 04/13/24 08:45 Room Air 04/13/24 04:49 81 14 171/57 H 98 04/12/24 20:33 97.6 F 83 16 134/81 100 04/12/24 20:00 97.3 F L 84 14 164/55 H 97 04/12/24 20:00 Room Air Intake/Output Intake/Output: Intake & Output 04/10/24 04/11/24 04/12/24 04/13/24 23:59 23:59 23:59 23:59 Intake Total 240 1105 1290 868 Output Total 125 2550 435 9138 Balance 115 -70 890 -132 Meds/Results Medications: Active Medications Generic Name Dose Route Start Last Admin Trade Name Freq PRN Reason Stop Dose Admin Acetaminophen 650 mg 04/04/24 12:10 04/12/24 20:58 Acetaminophen 325 Mg Tablet PO 650 mg Q4H PRN Administration Mild Pain (1-3) or Fever Amlodipine Besylate 2.5 mg 04/12/24 12:45 04/13/24 08:31 Amlodipine Besylate 2.5 Mg Tablet PO 2.5 mg QAM JUAN PABLO Administration Artificial Tears 1 drop 04/04/24 20:15 Artificial Tears Ophth Soln 15 Ml Bottle EACH EYE Q4H PRN Dry Eye(S) Calcitriol 0.25 mcg 04/06/24 09:00 04/13/24 08:46 Calcitriol 0.25 Mcg Capsule BY MOUTH 0.25 mcg [id number] JUAN PABLO Administration Dextrose 12.5 gm 04/04/24 21:51 Dextrose 50% 25 Gm/50 Ml Syringe IV PUSH PRN PRN Hypoglycemia Protocol Famotidine 10 mg 04/10/24 09:00 04/13/24 08:30 Famotidine 10 Mg Tablet PO 10 mg DAILY JUAN PABLO Administration Glucagon 1 mg 04/04/24 21:51 Glucagon For Inj 1 Mg Vial IM PRN PRN Hypoglycemia Protocol Glucose 15 gm 04/04/24 21:51 Glucose Oral Gel 15 Gm Of Glucse In 37.5 Gm Tube PO PRN PRN Hypoglycemia Protocol Dextrose 1,000 mls @ 100 mls/hr 04/04/24 21:51 Dextrose 5% 1,000 Ml IVPB PRN PRN Hypoglycemia Protocol Albumin Human 50 mls @ 999 mls/hr 04/09/24 11:16 Albutein IVPB 05/09/24 11:15 Q10M PRN HYPOTENSION Latanoprost 1 drop 04/05/24 09:00 04/13/24 08:31 Latanoprost 0.005% Op Soln 2.5 Ml Btl EACH EYE 1 drop DAILY JUAN PABLO Administration Loratadine 10 mg 04/04/24 20:25 04/12/24 20:58 Loratadine 10 Mg Tablet PO 10 mg QAM PRN Administration allergy symptoms Ondansetron HCl 4 mg 04/04/24 12:10 04/13/24 12:42 Ondansetron Inj 4 Mg/2 Ml Vial IV PUSH 4 mg Q4H PRN Administration Nausea Pravastatin Sodium 40 mg 04/05/24 09:00 04/13/24 08:30 Pravastatin Sodium 20 Mg Tablet PO 40 mg DAILY JUAN PABLO Administration Vitamin D 2,000 units 04/05/24 09:00 04/13/24 17:10 Cholecalciferol 1,000 Units Tablet PO 2,000 units BID JUAN PABLO Administration Radiology Results: ITS Impressions Renal Ultrasound 04/06/24 11:46 Impression: Unremarkable ultrasound of the kidneys. Cholelithiasis and gallbladder sludge incidentally noted. Abdomen/Pelvis CT 04/06/24 19:19 IMPRESSION: Left basilar infiltrate with a small right-sided pleural effusion, an interval change from 04/04/2023. Marked delayed excretion within the bilateral kidneys, consistent with patient's history. Fluid distention of the stomach, extending to the proximal jejunum consistent with patient's history Mural thickening within the rectosigmoid colon with multiple diverticula and trace surrounding inflammatory change, similar in appearance to examination dated 04/04/2024. No drainable fluid collections or gross perforation is noted. Interval development of significant anasarca and retroperitoneal inflammatory change. Brain MRI 04/08/24 17:05 IMPRESSION: 1. Normal aging brain. Chest X-Ray 04/10/24 08:29 Impression: 1: No acute cardiopulmonary disease. Labs Labs: Laboratory Tests 04/13/24 06:23 04/13/24 06:23 Calcium 8.0 L Magnesium 1.9 Total Bilirubin 0.5 AST 24 ALT 11 Alkaline Phosphatase 51 Total Protein 5.0 L Albumin 2.8 L
[2024-04-13 11:22] LABS: Glucose Point of Care 103 mg/dl (65-105)
[2024-04-13] MEDS: ONDANSETRON INJ 4 MG/2 ML VIAL IV PUSH (12:42)
--- NOTE | 2024-04-13 13:01 | PCNWS ---
Weekly nutritional screen. Patient is tolerating current Renal diet with adequate intake, reports a good appetite. No weight loss reported. No nutritional recommendations at this time.
[2024-04-13 14:00] VITALS: BP 161/61; PULSE 95; RESP 16; TEMP 36.9; O2SAT 97
--- NOTE | 2024-04-13 18:09 | P.PNIM_ITS ---
Progress Note: A&P Assessment and Plan (1) Acute kidney injury (JAE) with acute tubular necrosis (ATN): Code(s): N17.0 - Acute kidney failure with tubular necrosis Status: Acute Assessment and Plan: Patient received IV contrast on 04/04/24 with already underlying CKD now with worsening renal failure * Baseline Cr around 2.00. * Avoid nephrotoxic drugs. * Avoid NSAIDs. * Routine CMP monitoring GFR. * Monitor electrolytes especially potassium. 04/06/2024 * Worsening Cr 4.40 today could be secondary Anesthesia from EGD * NS 75 D/C D/5 * nephrology consulted for further recommendations and evaluation * bilateral renal ultrasound * Cipro D/c switched to Rocephin 04/07/2024: * Worsening Cr 5.16 * CT showing contrast in Kidneys from 3 days prior and anasarca in the stomach * failed fluid challenge will D/C * no urinary output Pedro placed with only 50 mL * Plan for renal function in the AM if no improvement hoping for renal recovery but may need temporary dialysis with consult to surgery for dialysis access. * Potassium 5.2 dose of Lokelma 04/08: JAE continues to worsen, acidosis continues to worsen, declining mental status with slurred speech and patient stating that she believes she a stroke, MRI ordered, several medications held this afternoon. Nephrology aware as I spoke with Dr. Reyna earlier and RN called to update with worsening clinical picture. 04/09 pt to have Cam placed today to start temp dialysis soon 04/10: pt sp dialysis yesterday and today, unfortunately pt has no fluid off 04/11 * Creatinine 3.19, currently receiving HD 04/12/ Cr 2.37 from 3.19 yesterday. - Seen by nephro and possibly HD tomorrow or day after. - Continue to monitor renal panel closely. - Continue to avoid nephrotoxins. - No plans for HD today per pt. 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 04/12 Hgb 6.7 earlier but repeat 7.2 Continue to monitor Hgb closely. Continue oral PPI. 04/13/ Hgb 7.0 today. - Continue to monitor closely. - Continue oral PPI. (3) Colitis: Code(s): K52.9 - Noninfective gastroenteritis and colitis, unspecified Status: Acute Assessment and Plan: CT abdomen showing colitis/There is an approximately 11.4 x 24 mm fatty lesion within the hepatic flexure of the colon, most consistent with a lipoma. This type of lesion can erode and cause rectal bleeding. * GI consulted * GI recommended ciprofloxacin and Flagyl * will need follow-up colonoscopy in 6-8 weeks after infectious process resulting unless her hemoglobin continues to trend down * PPI BID * clear liquid diet * WBC 12.2 today * Stool studies pending * bright red blood in stool reported * monitoring HGB 04/06/2024 * patient advanced to low-fiber diet but had N/V change back to clear liquid * F/U ct ABD * Hgb stable 04/08: Tolerated clears but altered LOC and slurred speech today, patient moved to IMU after findings of metabolic acidosis with incomplete compensation. 04/09 : pt remains acidotic awaiting dialysis, creat is 6.9, potassium is 5, ph is low, sodium is 125 04/10: ph is improving, creat is 4, sodium is 125 sp 2 dialysis sessions 04/12: Denies any diarrhea episodes today. Tolerating renal diet well so far. C-diff negative. Continue to monitor for acute symptoms. 04/13/ No diarrhea episodes today. Continues to tolerate renal diet well. C-Diff test negative. Continue to monitor closely for acute symptoms. (4) Chronic kidney disease, stage IV (severe): Code(s): N18.4 - Chronic kidney disease, stage 4 (severe) Status: Acute Assessment and Plan: * Gentle IV hydration. * Baseline around 2.00 currently 3.00 04/05/24 * Avoid nephrotoxic drugs. * Monitor antihypertensive drug therapy. * Avoid NSAIDs. * Routine CMP monitoring GFR. * Monitor electrolytes especially potassium. * Antibiotic doses depending on creatinine clearance. * Pharmacy does medications. * Routine follow-up with Nephrology as an outpatient. 04/06/2024 * Worsening Cr 4.40 today could be secondary Anesthesia from EGD * NS 75 D/C * nephrology consulted for further recommendations and evaluation * bilateral renal ultrasound * Cipro D/c switched to Rocephin 04/08: Tolerated clears but altered LOC and slurred speech today, patient moved to IMU after findings of metabolic acidosis with incomplete compensation. Potentially encephalopathy due to build up of sedating medications. MRI ordered to assess for Stroke. 04/11 * Mental status clinically improving with HD and 04/10 MRI with 'normal aging brain' * 04/12 Appears to be improving clinically and with labs. Nephro following and possible dialysis tomorrow or day after. HD catheter to Left Groin. Continue to avoid nephrotoxins. Meds dosing per renal function. 04/13/ Cr 2.72 today from 2.37 yesterday. Nephro following and no HD today. HD catheter to Left Groin. Continue to avoid nephrotoxins. Meds dosing per renal function. (5) Chronic anemia: Code(s): D64.9 - Anemia, unspecified Status: Chronic Assessment and Plan: patient's baseline is usually hemoglobin of 10 to 11 likely secondary to her chronic kidney disease but possible active GI bleed currently * Monitor HGB * Transfuse PRBC if Hgb <7.0 * hemodynamically stable 04/08: Hgb 7.9 in AM and 8.9 in afternoon 04/09: hb is 8 today 04/11 hgb 7.5, continue to trend 04/12/ Initial Hgb 6.7 and repeat level 7.2 Continue to monitor Hgb closely. Transfuse for Hgb <7 EGD showing Ferrell's Esophagus with dysplasia, no active bleeding. 04/13/ Hgb 7.0 today. Continue to monitor Hgb closely. Transfuse for Hgb <7 EGD showing Ferrell's Esophagus with dysplasia, no active bleeding. 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 * Continue to monitor H&H closely. (7) Hypertension: Code(s): I10 - Essential (primary) hypertension Status: Acute Assessment and Plan: reviewed and currently well controlled (8) Hypomagnesemia: Code(s): E83.42 - Hypomagnesemia Status: Acute Assessment and Plan: * Mag 1.1 * replenished with 4g * trend and replenish as needed RESOLVED (9) Hyponatremia: Code(s): E87.1 - Hypo-osmolality and hyponatremia Status: Acute Assessment and Plan: * chronically low, likely related to CKD. * no focal neurological deficits noted. * Further mgt per deli slicer. * Currently not on salt tabs. (10) Metabolic acidosis: Code(s): E87.20 - Acidosis, unspecified Status: Acute Assessment and Plan: - Previously on IV and PO sodium bicarbonate. - Currently resolved. (11) Encephalopathy acute: Code(s): G93.40 - Encephalopathy, unspecified Status: Acute Assessment and Plan: 04/08: patient with slurred speech difficulty awakening concerned for CO2 narcosis ABG resulted metabolic acidosis, beta hydroxybutyrate and lactic acid normal metabolic acidosis related to decreased renal function ammonia level negative, MRI brain without contrast also negative 04/09 likely secondary to uremia and severe MA 04/10 pt appears less confused today states she feels very tired 04/11 oriented x3, alert, continue to monitor 04/12: Well oriented with no focal neuro deficits noted. 04/13/ Appears resolved. Time Spent With Patient Time with patient: 15 - 25 minutes Subjective Date/time seen: 04/13/24 10:09 Patient states she feels alright and just awaiting deli slicer to make decision on long-term hemodialysis. Interval history: Patient calm on bedrest and looks to be in no acute distress. Review of Systems Review of Systems: No specific complaints All systems reviewed & are unremarkable except as noted in HPI and below Exam Narrative: HEENT: PERRL, sclerae nonicteric, pharyngeal mucosa pink and intact NECK: Supple, No JVD, adenopathy, or thyromegaly CHEST: Clear bilaterally. HEART: NL S1/S2, regular, no murmur ABDOMEN: BS+, soft, nontender, non-distended EXTREMITIES: No cyanosis, edema, or clubbing. Dialysis catheter to Left Groin. NEUROLOGIC: Alert, Oriented to person, place, and time. CN intact and symmetric to inspection. MUSCULOSKELETAL: Tone and strength symmetric, but diminished in LE's. PSYCH: Pleasant and co-operative. Objective Data Vital Signs Vital Signs: Vital Signs - 24 hr 04/12/24 20:00 04/12/24 20:00 04/12/24 20:33 Temperature 97.3 F L 97.6 F Pulse Rate 84 83 Respiratory Rate 14 16 Blood Pressure 164/55 H 134/81 Pulse Oximetry 97 100 Oxygen Delivery Room Air 04/13/24 04:49 04/13/24 08:45 04/13/24 14:00 Temperature 98.5 F Pulse Rate 81 95 Respiratory Rate 14 16 Blood Pressure 171/57 H 161/61 H Pulse Oximetry 98 97 Oxygen Delivery Room Air Intake/Output Intake/Output: Intake & Output 04/10/24 04/11/24 04/12/24 04/13/24 23:59 23:59 23:59 23:59 Intake Total 240 1105 1290 628 Output Total 125 1175 400 300 Balance 115 -70 890 328 Meds/Results Medications: Active Medications Generic Name Dose Route Start Last Admin Trade Name Freq PRN Reason Stop Dose Admin Acetaminophen 650 mg 04/04/24 12:10 04/12/24 20:58 Acetaminophen 325 Mg Tablet PO 650 mg Q4H PRN Administration Mild Pain (1-3) or Fever Amlodipine Besylate 2.5 mg 04/12/24 12:45 04/13/24 08:31 Amlodipine Besylate 2.5 Mg Tablet PO 2.5 mg QAM JUAN PABLO Administration Artificial Tears 1 drop 04/04/24 20:15 Artificial Tears Ophth Soln 15 Ml Bottle EACH EYE Q4H PRN Dry Eye(S) Calcitriol 0.25 mcg 04/06/24 09:00 04/13/24 08:46 Calcitriol 0.25 Mcg Capsule BY MOUTH 0.25 mcg [id number]@0900 JUAN PABLO Administration Dextrose 12.5 gm 04/04/24 21:51 Dextrose 50% 25 Gm/50 Ml Syringe IV PUSH PRN PRN Hypoglycemia Protocol Famotidine 10 mg 04/10/24 09:00 04/13/24 08:30 Famotidine 10 Mg Tablet PO 10 mg DAILY JUAN PABLO Administration Glucagon 1 mg 04/04/24 21:51 Glucagon For Inj 1 Mg Vial IM PRN PRN Hypoglycemia Protocol Glucose 15 gm 04/04/24 21:51 Glucose Oral Gel 15 Gm Of Glucse In 37.5 Gm Tube PO PRN PRN Hypoglycemia Protocol Dextrose 1,000 mls @ 100 mls/hr 04/04/24 21:51 Dextrose 5% 1,000 Ml IVPB PRN PRN Hypoglycemia Protocol Albumin Human 50 mls @ 999 mls/hr 04/09/24 11:16 Albutein IVPB 05/09/24 11:15 Q10M PRN HYPOTENSION Latanoprost 1 drop 04/05/24 09:00 04/13/24 08:31 Latanoprost 0.005% Op Soln 2.5 Ml Btl EACH EYE 1 drop DAILY JUAN PABLO Administration Loratadine 10 mg 04/04/24 20:25 04/12/24 20:58 Loratadine 10 Mg Tablet PO 10 mg QAM PRN Administration allergy symptoms Ondansetron HCl 4 mg 04/04/24 12:10 04/13/24 12:42 Ondansetron Inj 4 Mg/2 Ml Vial IV PUSH 4 mg Q4H PRN Administration Nausea Pravastatin Sodium 40 mg 04/05/24 09:00 04/13/24 08:30 Pravastatin Sodium 20 Mg Tablet PO 40 mg DAILY JUAN PABLO Administration Vitamin D 2,000 units 04/05/24 09:00 04/13/24 17:10 Cholecalciferol 1,000 Units Tablet PO 2,000 units BID JUAN PABLO Administration Radiology Results: ITS Impressions Renal Ultrasound 04/06/24 11:46 Impression: Unremarkable ultrasound of the kidneys. Cholelithiasis and gallbladder sludge incidentally noted. Abdomen/Pelvis CT 04/06/24 19:19 IMPRESSION: Left basilar infiltrate with a small right-sided pleural effusion, an interval change from 04/04/2023. Marked delayed excretion within the bilateral kidneys, consistent with patient's history. Fluid distention of the stomach, extending to the proximal jejunum consistent with patient's history Mural thickening within the rectosigmoid colon with multiple diverticula and trace surrounding inflammatory change, similar in appearance to examination dated 04/04/2024. No drainable fluid collections or gross perforation is noted. Interval development of significant anasarca and retroperitoneal inflammatory change. Brain MRI 04/08/24 17:05 IMPRESSION: 1. Normal aging brain. Chest X-Ray 04/10/24 08:29 Impression: 1: No acute cardiopulmonary disease. Labs Labs: Laboratory Results - last 24 hr 04/12/24 04/12/24 04/13/24 18:04 20:48 06:23 WBC 10.8 H RBC 2.22 L Hgb 7.0 L Hct 21.8 L MCV 98.2 MCH 31.5 MCHC 32.1 RDW 14.2 Plt Count 235 MPV 10.0 Sodium 126 L Potassium 3.4 Chloride 95 L Carbon Dioxide 28 Anion Gap 3 L BUN 17 Creatinine 2.72 H Estim Creat Clear Calc Not Reportable Estimated GFR 17 L Glucose 79 POC Capillary Glucose 123 H 117 H Calcium 8.0 L Magnesium 1.9 Total Bilirubin 0.5 AST 24 ALT 11 Alkaline Phosphatase 51 Total Protein 5.0 L Albumin 2.8 L 04/13/24 11:19 WBC RBC Hgb Hct MCV MCH MCHC RDW Plt Count MPV Sodium Potassium Chloride Carbon Dioxide Anion Gap BUN Creatinine Estim Creat Clear Calc Estimated GFR Glucose POC Capillary Glucose 103 Calcium Magnesium Total Bilirubin AST ALT Alkaline Phosphatase Total Protein Albumin Quality VTE Prophylaxis VTE prophylaxis: mechanical ordered Hospitalist MIPS Advance Care Plan I have confirmed that the patient's Advanced Care Plan is present, code status is documented, or surrogate decision maker is listed in patient medical record.: Yes Medication Reconciliation I have utilized all available resources to obtain, update and review the patients current medications (includes all prescriptions, OTC, herbals, cannabis, and nutritional supplements).: Yes
[2024-04-13 18:33] LABS: Glucose Point of Care 130 mg/dl (65-105)
--- NOTE | 2024-04-13 18:36 | ECG_ITS ---
Test Date: 2024-04-13 18:49:46 Measurements Intervals [place] Rate: 118 P: 0 ID: 0 QRS: 32 QRSD: 90 T: 96 QT: 346 QTc: 486 Interpretive Statements ATRIAL FIBRILLATION WITH RAPID VENTRICULAR RESPONSE NONSPECIFIC T-WAVE ABNORMALITY Compared to ECG 04/04/2024 02:49:49 T-wave abnormality now present Sinus tachycardia no longer present ST (T wave) deviation no longer present Electronically Signed On 04-13-2024 21:40:08 BARREL LINE OPERATOR by Ori Murillo M.D.
--- NOTE | 2024-04-13 19:37 | P.PNCROSS_ITS ---
Event Note Event Note Event Note: S: Earlier in the evening the patient began to feel a fluttering her chest with feelings of anxiety. EKG showed rapid atrial fibrillation. An EKG early in her stay also showed rapid atrial fibrillation but to my knowledge she has been in a sinus rhythm since that time. The patient has never been told that she has or had AFib. She denies syncope, near syncope, chest pain, pleuritic pain, shortness of breath, edema, sweats, nausea, and vomiting. O: On exam she is chronically ill in appearance but does not appear toxic. She is generally pale. Heart rate is irregularly irregular. Systolic murmurs are appreciated. No cyanosis, clubbing or edema. Peripheral pulses palpable. Abdomen is soft with positive bowel sounds. No JVD. Respirations are nonlabored. A/P: She received Lopressor 5 mg IV with improvement in her rate. No anticoagulation at this time given anemia. Monitor on telemetry. Echocardiogram has been ordered and cardiology has been consulted. She is feeling much better now that her rate is controlled. Blood pressures are stable. Critical Care Time Critical Care Time: Yes Total Critical Care Time: 30 Attestation: Due to a high probability of clinically significant, life threatening deterioration, the patient required my highest level of preparedness to in [facility] emergently and I personally spent this critical care time directly and personally managing the patient. This critical care time included obtaining a history; examining the patient; pulse oximetry; ordering and review of studies; arranging urgent treatment with development of a management plan; evaluation of patient's response to treatment; frequent reassessment; and discussions with other providers. It was exclusive of separately billable procedures and treating other patients and teaching time. Please see Assessment and Plan section and the rest of the note for further information on patient assessment and treatment.
[2024-04-13 19:44] VITALS: PULSE 122
[2024-04-13] MEDS: METOPROLOL TARTRATE INJ 5 MG/5 ML VIAL IV PUSH (19:44)
[2024-04-13 19:50] VITALS: BP 138/61; PULSE 122; RESP 16; TEMP 36.4; O2SAT 100
[2024-04-13 20:20] VITALS: BP 141/70; PULSE 89; RESP 18; TEMP 36.8; O2SAT 96
[2024-04-13 21:33] LABS: Hematocrit 22.4 % (37.0-47.0); Hemoglobin 7.1 g/dL (12.0-15.0)
[2024-04-13 22:09] LABS: Anion Gap 5 mmol/L (4-12); Blood Urea Nitrogen 20 mg/dL (7-17); Calcium 8.1 mg/dL (8.4-10.2); Carbon Dioxide 29 mmol/L (22-30); Chloride 93 mmol/L (98-107); Estimated Glomerular Filt Rate 19; Glucose 98 mg/dL (65-110); Potassium 3.2 mmol/L (3.4-5.0); Sodium 127 mmol/L (137-145)
[2024-04-14] VITALS (7 sets, daily range): BP systolic 138–157; BP diastolic 53–87; PULSE 77–87; RESP 16–20; TEMP 36.1–36.7; O2SAT 97–100
--- NOTE | 2024-04-14 | ECHO_ITS ---
Patient Info Name: Kandace Cole Age: 74 years : 1950 Gender: Female Ht: 51 in Wt: 160 lbs BSA: 1.67 m2 HR: 81 bpm BP: 146 / 53 mmHg Heart Rhythm: Sinus Rhythm Technical Quality: Poor Exam Date: 04/14/2024 12:06 PM Exam Location: Echo Lab Patient Status: Inpatient Admit Date: 04/06/2024 Staff Ordering Physician: Francy Santos PA-C [facility] Hand: Kayden Selby RDCS Attending Provider: Yaritza Ramos APRN Referring Physician: Tom CARDENAS; Exam Type: CA echo dop color flow w con Study Info Indications - NEW ONSET ATRIAL FIBRILLATION Complete two-dimensional, color flow and Doppler transthoracic echocardiogram is performed with contrast to opacify the left ventricle and to improve the deliniation of the left ventricle endocardial borders. Contrast/Agitated Saline Contrast/Ag. Saline: Definity Amount: 2.00 ml Existing IV Access: Yes Reason for Poor Study: poor echocardiographic windows Summary 1. Left ventricular chamber dimension is normal. 2. Left ventricular systolic function is normal, estimated at 65-70%. 3. There is moderately increased left ventricular wall thickness. 4. The left ventricular diastolic function is grade I diastolic dysfunction. 5. Right ventricular systolic function is normal. 6. Left atrial chamber dimension is severely enlarged. 7. The mitral valve has thickened leaflets. 8. The mitral valve annulus is severely calcified. 9. There is trace mitral valve regurgitation. 10. There is trace tricuspid valve regurgitation. 11. There is trivial anterior pericardial effusion. Left Ventricle Left ventricular chamber dimension is normal. Left ventricular systolic function is normal, estimated at 65-70%. There is moderately increased left ventricular wall thickness. The left ventricular diastolic function is grade I diastolic dysfunction. Right Ventricle Right ventricular chamber dimension is normal. Right ventricular systolic function is normal. Left Atria Left atrial chamber dimension is severely enlarged. Right Atria Right atrial chamber dimension is normal. Atrial Septum Intact interatrial septum visualized by color flow imaging. Aortic Valve The aortic valve is not well visualized. There is no aortic valve stenosis. There is no aortic valve regurgitation. Pulmonic Valve The pulmonic valve is not well visualized. There is no pulmonic regurgitation. Mitral Valve The mitral valve has thickened leaflets. There is trace mitral valve regurgitation. The mitral valve annulus is severely calcified. Tricuspid Valve There is trace tricuspid valve regurgitation. Pericardium/Pleural The pericardium appears epicardial fat pad. There is trivial anterior pericardial effusion. Inferior Vena Cava Dilated inferior vena cava with >50% collapse upon inspiration consistent with elevated right atrial pressure, 8 mmHg. Aorta The aortic root size at the sinus of Valsalva is normal. Left Ventricular Outflow Tract Name Value Normal LVOT 2D LVOT Diameter 1.83 cm LVOT Doppler LVOT Peak Gradient 7 mmHg LVOT Mean Gradient 5 mmHg LVOT VTI 29.96 cm LVOT VTI/AV VTI Ratio 0.78 LVOT Stroke Volume 79.04 ml LVOT CO 6.37 l/min LVOT CI 3.81 L/min/m2 Pulmonic Valve Name Value Normal RVOT Doppler RVOT Peak Gradient 9 mmHg PV Doppler PV Peak Gradient 8 mmHg Mitral Valve Name Value Normal MV Doppler MV Decel [place] 1,087.84 cm/s2 MV PHT 0 s MV Area (PHT) 7.11 cm2 4.00-5.00 MV Diastolic Function MV E Peak Velocity 116.13 cm/s MV A Peak Velocity 159.55 cm/s MV E/A 0.73 MV Decel Time 0 s MV Annular TDI MV E/e' (Septal) 21.10 <=8.00 MV E/e' (Lateral) 12.92 <=8.00 MV E/e' (Average) 17.01 Tricuspid Valve Name Value Normal Estimated PAP/RSVP RA Pressure 8 mmHg <=5 Aorta Name Value Normal Ascending Aorta Ao Root Diameter (MM) 3.32 cm Ao Root Diam Index (MM) 1.99 cm/m2 Aortic Valve Name Value Normal AV Doppler AV Peak Velocity 175.63 cm/s AV Peak Gradient 12 mmHg AV Mean Gradient 7 mmHg AV VTI 38.64 cm AV Area (Cont Eq VTI) 2.05 cm2 >=3.00 AV Area (Cont Eq Christo) 2.04 cm2 AV Regurgitation 2D LVOT Area 2.64 cm2 Ventricles Name Value Normal LV Dimensions 2D/MM IVS Diastolic Thickness (2D) 0.90 cm 0.60-1.00 LVID Diastole (2D) 3.92 cm 3.80-5.20 LVIW Diastolic Thickness (2D) 1.24 cm 0.60-0.90 LVID Systole (2D) 2.35 cm 2.20-3.50 LVOT Diameter 1.83 cm LV Mass (2D Cubed) 135.65 g 67.00-162.00 LV Mass Index (2D Cubed) 0.01 g/cm2 0.00-0.01 Relative Wall Thickness (2D) 0.63 LV Fractional Shortening/Ejection Fraction 2D/MM LV Fractional Shortening (2D) 40 % 27-45 LV EF (2D Teicholz) 71 % 54-74 LV Diastolic Volume (4C MOD) 54.44 ml LV EF (4C MOD) 66 % LV Diastolic Volume (2C MOD) 63.89 ml LV EF (2C MOD) 78 % LV Diastolic Volume (BP MOD) 58.56 ml 46.00-106.00 LV Diastolic Volume Index (BP MOD) 0.04 l/m2 0.03-0.06 LV Systolic Volume (BP MOD) 15.91 ml 14.00-42.00 LV Systolic Volume Index (BP MOD) 0.01 l/m2 0.01-0.02 LV EF (BP MOD) 73 % 54-74 LV Diastolic Length (4C) 7.27 cm LV Systolic Length (4C) 5.65 cm LV Stroke Volume (4C MOD) 36.03 ml Atria Name Value Normal LA Dimensions LA Dimension (MM) 2.76 cm 2.70-3.80 LA Volume (4C A-L) 75.65 ml LA Volume (BP A-L) 76.52 ml RA Dimensions RA Area (4C) 13.09 cm2 <=18.00 Report Signatures
[2024-04-14 00:29] LABS: Glucose Point of Care 89 mg/dl (65-105)
[2024-04-14 02:40] LABS: Free T4 Free Thyroxine Reflex 1.13 ng/dL (0.78-2.19)
[2024-04-14] MEDS: CHOLECALCIFEROL 1,000 UNITS TABLET 2000 UNITS PO ×2 (08:40→17:36)
[2024-04-14] MEDS: amLODIPine BESYLATE 2.5 MG TABLET PO (08:40)
[2024-04-14] MEDS: PRAVASTATIN SODIUM 20 MG TABLET 40 MG PO (08:41)
[2024-04-14] MEDS: FAMOTIDINE 10 MG TABLET PO (08:41)
[2024-04-14] MEDS: LATANOPROST 0.005% OP SOLN 2.5 ML BTL 1 DROP EACH EYE (08:41)
[2024-04-14 09:55] LABS: Hematocrit 26.5 % (37.0-47.0); Hemoglobin 8.2 g/dL (12.0-15.0); Mean Corpuscular HGB Conc 30.9 g/dl (32-36); Mean Corpuscular Hemoglobin 30.7 pg (26-34); Mean Corpuscular Volume 99.3 fl (80-100); Mean Platelet Volume 9.8 fl (7.4-10.4); Platelet Count Result 279 k/mm3 (150-375); Red Blood Count 2.67 M/mm3 (4.2-5.4); Red Cell Distribution Width 14.6 % (11.5-14.5); White Blood Count 10.3 K/mm3 (4.5-10.0)
[2024-04-14 10:01] LABS: Total Triiodothyronine (T3) 0.69 NG/ML (0.97-1.69)
--- NOTE | 2024-04-14 10:37 | P.PNNP_ITS ---
Progress Note: A&P Assessment and Plan (1) JAE (acute kidney injury): Code(s): N17.9 - Acute kidney failure, unspecified Status: Acute Assessment and Plan: * as noted since admission * suspect multifactorial etiology: * prerenal factors * relative hypotension * contrast exposure (CT with contrast on 04/04/24) * LENNIE-I use prior to admission * relative anemia * other (?) * evaluation to date noted: * urine electrolytes prerenal * urine eosinophils negative * UA without evidence of infection * CPK normal * renal ultrasound okay * repeat CT of A/P still notes contrast present in kidneys * started on [facility]/hemodialysis due to anuria and having issues with hyponatremia, worsening metabolic acidosis and possible uremic symptoms... * s/p temporary HD catheter placement on 04/09/23 * HD on 04/09, 04/10, and 04/11 * improving/stable creatinine and improved urine output noted - hold HD today * follow trend of repeat labs and UOP to assess for potential renal recovery (2) Chronic kidney disease, stage IV (severe): Code(s): N18.4 - Chronic kidney disease, stage 4 (severe) Status: Acute Assessment and Plan: * baseline creatinine runs ~ 1.8 - 2.3mg/dl * due hypertension, diabetes, and age-related change with contributions with previous use of NSAIDs (3) Metabolic acidosis: Code(s): E87.20 - Acidosis, unspecified Status: Acute Assessment and Plan: * due to worsening JAE/ARF * corrected with dialysis * follow trend (4) Hyponatremia: Code(s): E87.1 - Hypo-osmolality and hyponatremia Status: Acute Assessment and Plan: * chronic issues at baseline * likely worsened by JAE/ARF * given JAE, sodium tabs on hold * dialysis has correct to some degree * follow trend of sodium level (5) GI bleed: Code(s): K92.2 - Gastrointestinal hemorrhage, unspecified Status: Acute Assessment and Plan: * 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 * known history of Barrettt's esophagus * Hgb dropped since admission * GI following: * s/p EGD - no active bleeding with Ferrell's esophagus * on PPI * follow trend of H/H * PRBC transfusion per protocol (6) Colitis: Code(s): K52.9 - Noninfective gastroenteritis and colitis, unspecified Status: Acute Assessment and Plan: * as noted by admission CT of A/P * GI recommendations noted * off antibiotics * advance diet as tolerated (7) Chronic anemia: Code(s): D64.9 - Anemia, unspecified Status: Chronic Assessment and Plan: * probably related to CKD * acute worsening noted since admission * complicated by #5 * Retacrit with HD * follow H/H (8) Hypertension: Code(s): I10 - Essential (primary) hypertension Status: Acute Assessment and Plan: * reasonable control at this time * lisinopril on hold due to #1 * follow trend of hemodynamics Will continue to follow. L Subjective Date/time seen: 04/14/24 10:37 Interval history: Follow-up for acute kidney injury/acute renal failure on chronic kidney disease. No apparent distress noted at the time of my visit other than fatigue/weakness; continues to make reasonable urine output and renal function/creatinine is stable if not better by recent testing; no other acute complaints to report; no issues/events overnight or earlier this morning. Exam 2 Narrative: General: elderly female in NAD Heart: normal S1 and S2; no rub Lungs: clear to auscultation Abdomen: soft, nondistended, positive bowel sounds Extremities: no cyanosis or clubbing; no edema Skin: no rash Objective Data Vital Signs Vital Signs: Vital Signs Temp Pulse Resp BP Pulse Ox O2 Del Method 04/14/24 10:30 98 F 81 20 146/64 H 97 04/14/24 08:40 Room Air 04/14/24 08:00 84 04/14/24 04:00 81 04/14/24 04:00 96.9 F L 77 16 146/53 H 100 04/14/24 00:41 97.4 F L 79 16 157/59 H 98 04/13/24 20:20 98.3 F 89 18 141/70 H 96 04/13/24 20:00 Room Air 04/13/24 19:50 97.6 F 122 H 16 138/61 100 04/13/24 19:44 122 H Intake/Output Intake/Output: Intake & Output 04/11/24 04/12/24 04/13/24 04/14/24 23:59 23:59 23:59 23:59 Intake Total 1105 1290 868 929 Output Total 3388 578 8705 1000 Balance -70 890 -132 -71 Meds/Results Medications: Active Medications Generic Name Dose Route Start Last Admin Trade Name Freq PRN Reason Stop Dose Admin Acetaminophen 650 mg 04/04/24 12:10 04/12/24 20:58 Acetaminophen 325 Mg Tablet PO 650 mg Q4H PRN Administration Mild Pain (1-3) or Fever Amlodipine Besylate 2.5 mg 04/12/24 12:45 04/14/24 08:40 Amlodipine Besylate 2.5 Mg Tablet PO 2.5 mg QAM JUAN PABLO Administration Artificial Tears 1 drop 04/04/24 20:15 Artificial Tears Ophth Soln 15 Ml Bottle EACH EYE Q4H PRN Dry Eye(S) Calcitriol 0.25 mcg 04/06/24 09:00 04/13/24 08:46 Calcitriol 0.25 Mcg Capsule BY MOUTH 0.25 mcg [id number] JUAN PABLO Administration Carvedilol 12.5 mg 04/14/24 21:00 Carvedilol 12.5 Mg Tablet PO Q12HR JUAN PABLO Dextrose 12.5 gm 04/04/24 21:51 Dextrose 50% 25 Gm/50 Ml Syringe IV PUSH PRN PRN Hypoglycemia Protocol Famotidine 10 mg 04/10/24 09:00 04/14/24 08:41 Famotidine 10 Mg Tablet PO 10 mg DAILY JUAN PABLO Administration Glucagon 1 mg 04/04/24 21:51 Glucagon For Inj 1 Mg Vial IM PRN PRN Hypoglycemia Protocol Glucose 15 gm 04/04/24 21:51 Glucose Oral Gel 15 Gm Of Glucse In 37.5 Gm Tube PO PRN PRN Hypoglycemia Protocol Dextrose 1,000 mls @ 100 mls/hr 04/04/24 21:51 Dextrose 5% 1,000 Ml IVPB PRN PRN Hypoglycemia Protocol Albumin Human 50 mls @ 999 mls/hr 04/09/24 11:16 Albutein IVPB 05/09/24 11:15 Q10M PRN HYPOTENSION Latanoprost 1 drop 04/05/24 09:00 04/14/24 08:41 Latanoprost 0.005% Op Soln 2.5 Ml Btl EACH EYE 1 drop DAILY JUAN PABLO Administration Loratadine 10 mg 04/04/24 20:25 04/12/24 20:58 Loratadine 10 Mg Tablet PO 10 mg QAM PRN Administration allergy symptoms Ondansetron HCl 4 mg 04/04/24 12:10 04/14/24 15:30 Ondansetron Inj 4 Mg/2 Ml Vial IV PUSH 4 mg Q4H PRN Administration Nausea Perflutren Lipid Microsphere 0 ml 04/14/24 00:11 Perflutren Lipid Microspheres 1.5 Ml Vial Diluted To 10 Ml Total Volume IV PUSH 04/17/24 00:11 ONCE PRN adequate visualization Protocol Pravastatin Sodium 40 mg 04/05/24 09:00 04/14/24 08:41 Pravastatin Sodium 20 Mg Tablet PO 40 mg DAILY JUAN PABLO Administration Vitamin D 2,000 units 04/05/24 09:00 04/14/24 17:36 Cholecalciferol 1,000 Units Tablet PO 2,000 units BID JUAN PABLO Administration Radiology Results: ITS Impressions Renal Ultrasound 04/06/24 11:46 Impression: Unremarkable ultrasound of the kidneys. Cholelithiasis and gallbladder sludge incidentally noted. Abdomen/Pelvis CT 04/06/24 19:19 IMPRESSION: Left basilar infiltrate with a small right-sided pleural effusion, an interval change from 04/04/2023. Marked delayed excretion within the bilateral kidneys, consistent with patient's history. Fluid distention of the stomach, extending to the proximal jejunum consistent with patient's history Mural thickening within the rectosigmoid colon with multiple diverticula and trace surrounding inflammatory change, similar in appearance to examination dated 04/04/2024. No drainable fluid collections or gross perforation is noted. Interval development of significant anasarca and retroperitoneal inflammatory change. Brain MRI 04/08/24 17:05 IMPRESSION: 1. Normal aging brain. Chest X-Ray 04/10/24 08:29 Impression: 1: No acute cardiopulmonary disease. Labs Labs: Laboratory Tests 04/14/24 09:40 04/14/24 09:40 Microbiology 04/08/24 14:38 Blood Blood Culture - Final 04/08/24 14:29 Blood Blood Culture - Final
--- NOTE | 2024-04-14 10:43 | P.CDI_ITS ---
CDI Query Clarification Request Encephalopathy has been documented. Please clarify type of encephalopathy: * Metabolic * Toxic * Hepatic * Hypertensive * Other * Unable to Determine Clinical Indicators: 04/08: patient with slurred speech difficulty awakening concerned for CO2 narcosis ABG resulted metabolic acidosis, beta hydroxybutyrate and lactic acid normal, ammonia level negative, MRI brain without contrast also negative 04/09 likely secondary to uremia and severe MA 04/10 pt appears less confused today states she feels very tired 04/11 oriented x3, alert, continue to monitor 04/12: Well oriented with no focal neuro deficits noted. 04/13/ Appears resolved. Treatment: Previously on IV and PO sodium bicarbonate <Luiza Bryson RN - Last Filed: 04/14/24 10:46> Clarified Diagnosis Clarified Diagnosis: Patient did not have any encephalopathy when I started seeing her 04/13, and I have documented resolved. Providers who saw pt during her encephalopathy could clarify the type. <Darius Villa NP - Last Filed: 04/14/24 16:34>
[2024-04-14 10:57] LABS: Anion Gap 6 mmol/L (4-12); Blood Urea Nitrogen 20 mg/dL (7-17); Calcium 8.2 mg/dL (8.4-10.2); Carbon Dioxide 28 mmol/L (22-30); Chloride 95 mmol/L (98-107); Estimated Glomerular Filt Rate 24; Glucose 123 mg/dL (65-110); Potassium 3.9 mmol/L (3.4-5.0); Sodium 129 mmol/L (137-145)
[2024-04-14 11:22] LABS: Glucose Point of Care 141 mg/dl (65-105)
[2024-04-14] MEDS: PERFLUTREN LIPID MICROSPHERES 1.5 ML VIAL DILUTED TO 10 ML TOTAL VOLUME IV PUSH (12:49)
--- NOTE | 2024-04-14 13:02 | P.CONCA_ITS ---
Assessment and Plan Assessment and plan (1) Paroxysmal atrial fibrillation with rapid ventricular response: Code(s): I48.0 - Paroxysmal atrial fibrillation Status: Acute Assessment and Plan: Echocardiogram ordered and pending. TSH level mildly elevated, T4 level normal. On Coreg at home, but not receiving here. Will resume her beta radha. Given her significant anemia, will not start anticoagulation for stroke risk reduction at this time. Will see how her anemia does, close outpatient follow up. If not a candidate for anticoagulation, may be considered for left atrial appendage closure device. (2) JAE (acute kidney injury): Code(s): N17.9 - Acute kidney failure, unspecified Status: Acute Assessment and Plan: JAE on CKD. Now on hemodialysis. (3) Anemia: Code(s): D64.9 - Anemia, unspecified Status: Acute Assessment and Plan: Given her significant anemia, will not start anticoagulation for stroke risk reduction at this time. Will see how her anemia does, close outpatient follow up. If not a candidate for anticoagulation, may be considered for left atrial appendage closure device. (4) Benign hypertension with chronic kidney disease: Code(s): I12.9 - Hypertensive chronic kidney disease with stage 1 through stage 4 chronic kidney disease, or unspecified chronic kidney disease Status: Acute Assessment and Plan: Stable. Resume Coreg as noted above for PAF (5) Diabetes mellitus with chronic kidney disease: Code(s): E11.22 - Type 2 diabetes mellitus with diabetic chronic kidney disease Status: Acute Assessment and Plan: Management as per Hospitalist. History of Present Illness History of Present Illness Consult date/time: 04/14/24 13:02 Requesting physician: Francy Santos PA-C Consult reason: Other (New diagnosis of atrial fibrillation) Reason For Visit: GI bleed, gastroenteritis Narrative: This is a 74 year old female with hypertension, hyperlipidemia, type 2 diabetes mellitus, CKD, hypothyroidism, anemia who was initially admitted to [facility] on 04/04/2024 for concerns for GI bleed. She has been treated for possible GI bleed, colitis, acute on chronic CKD. EGD showed no active bleeding, Ferrell's esophagus, minimal gastritis, hiatal hernia. JAE has continued to progress to the point where she was started on dialysis. Hgb was 6.7 on 04/12, currently 8.2. We are consulted for atrial fibrillation. Yesterday evening, she felt fluttering. EKG showed atrial fibrillation with RVR. Given Metoprolol 5mg IV with improvement in her heart rate. Echo ordered. Kandace follows with Dr. Murillo in our office. 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 No official diagnosis of atrial fibrillation on her past records from what I see. Review of Systems 2 Review of Systems: All systems reviewed & are unremarkable except as noted in HPI and below (HPI) REPLACED BY [facility] Past Medical History Medical History Diabetes type 2, controlled Restless leg syndrome Chronic kidney disease, stage IV (severe) Hyperlipidemia Vitamin D deficiency Raynaud's disease Anemia Depression Degenerative disc disease Cervical neck fusion in 2006 Arthritis Musculoskeletal disorder Bilateral rotator cuff surgery, bilateral carpal tunnel, arthritis, left thumb subluxed Ferrell's esophagus Pneumonia Hypertension Heart murmur Migraines Last migraine 2006 Glaucoma Cataracts, bilateral Surgical History Surgical History History of cervical spinal surgery History of orthopedic surgery Lower back disc removal 1986, repair of spinal leak 1987 History of appendectomy History of tonsillectomy Family History Family History Sibling Family history of thyroid disease Family history of obesity Family history of osteoporosis Family history of migraine headaches Hypertension Family history of elevated blood lipids Family history of alcoholism Family history of diabetes mellitus in first degree relative Family history of coronary artery disease Father Family history of osteoporosis Family history of lung cancer Mother Family history of osteoarthritis Family history of malignant melanoma Family history of atrial fibrillation Social History Social History Social History: Surrogate medical decision maker: Code status: Full code. Smoking status: Never smoker Second hand tobacco smoke exposure: Yes (father and ) Alcohol intake: never Substance use: never Substance use type: other Other substance usage details: cbd gummies without thc Do You Feel Safe in your Home?: Yes Lack of Transportation: No Lack of Food: Never True Current Housing: I Have Housing Concerned About Future Housing: No Difficulty Paying Gas/Electric Bills: No Difficulty Paying for Meds: No Currently Unemployed: No Education: Associate Degree Difficulty w/ Childcare or Family Care: No Living arrangements: with family Spiritual care concerns: Yes (pentecostalism) Meds Home Medications and Allergies Home Medications ?Medication ?Instructions ?Recorded ?Confirmed ?Type bupropion HCl 100 mg tablet 100 mg PO BID 12/24/20 04/04/24 History cholecalciferol (vitamin D3) 50 50 mcg PO BID 12/24/20 04/04/24 History mcg (2,000 unit) tablet (Vitamin D3) latanoprost 0.005 % eye drops 1 drp EACH EYE DAILY 12/24/20 04/04/24 History (Xalatan) lisinopril 20 mg tablet (Zestril) 20 mg PO DAILY 12/24/20 04/04/24 History meclizine 25 mg tablet 25 mg PO TID PRN dizziness #14 tabs 12/24/20 04/04/24 Rx pantoprazole 40 mg tablet,delayed 40 mg PO QAM 12/24/20 04/04/24 History release (Protonix) pravastatin 40 mg tablet 40 mg PO DAILY 12/24/20 04/04/24 History acetaminophen 325 mg tablet (Mapap 650 mg (2 x 325 mg) PO Q6H PRN 06/15/22 04/04/24 Rx (acetaminophen)) Mild Pain (1-3) Or Fever #30 tabs carvedilol 12.5 mg tablet (Coreg) 12.5 mg PO Q12HR #60 tabs 06/15/22 04/04/24 Rx escitalopram oxalate 10 mg tablet 20 mg (2 x 10 mg) PO DAILY #30 tabs 06/15/22 04/04/24 Rx famotidine 20 mg tablet 20 mg PO Q12HR #30 tabs 06/15/22 04/04/24 Rx gabapentin 300 mg capsule 300 mg PO TID #90 caps 06/15/22 04/04/24 Rx (Neurontin) peg [id number] 1 1 drp EACH EYE Q4H PRN Dry Eye(S) 06/15/22 04/04/24 Rx %-0.2 %-0.2 % eye drops #15 mL (Artificial Tears ([id number])) quetiapine 50 mg tablet 100 mg (2 x 50 mg) PO HS #30 tabs 06/15/22 04/04/24 Rx sodium chloride 1,000 mg soluble 1,000 mg PO QAM #14 tabs 06/15/22 04/04/24 Rx tablet cetirizine 10 mg tablet (Zyrtec) 10 mg PO DAILY PRN allergy symptoms 08/20/23 04/04/24 History calcitriol 0.25 mcg capsule See Rx Instructions .Route 03/30/24 04/04/24 Rx .COMPLEX #38 caps Allergies Allergy/AdvReac Type Severity Reaction Status Date / Time adhesive tape Allergy Mild Unknown Verified 04/06/24 08:47 Influenza Virus Vaccines Allergy Mild Hives Verified 04/06/24 08:47 smallpox vaccine,live Allergy Mild Hives Verified 04/06/24 08:47 Sulfa (Sulfonamide Allergy Mild HIVES Verified 04/04/24 16:23 Antibiotics) sulfamethoxazole Allergy Mild HIVES Verified 04/04/24 16:23 cyclobenzaprine Allergy Unknown Unknown Verified 04/04/24 16:23 fluoxetine Allergy Unknown Unknown Verified 04/04/24 16:23 latex Allergy Unknown Unknown Verified 04/04/24 16:23 meperidine Allergy Unknown Unknown Verified 04/04/24 16:23 naproxen Allergy Unknown Unknown Verified 04/04/24 16:23 trimethoprim Allergy Unknown Unknown Verified 04/04/24 16:23 bethanechol AdvReac Mild INTESTINAL Verified 04/06/24 09:03 PROBLEMS EGGS Allergy Unknown Unknown Uncoded 04/04/24 16:23 SEE NSG NOTES Allergy Unknown Unknown Uncoded 04/04/24 16:23 Vital Signs Vital Signs - 24 hr 04/13/24 14:00 04/13/24 19:44 04/13/24 19:50 Temperature 36.9 C 36.4 C Pulse Rate 95 122 H 122 H Respiratory Rate 16 16 Blood Pressure 161/61 H 138/61 Pulse Oximetry 97 100 Oxygen Delivery 04/13/24 20:00 04/13/24 20:20 04/14/24 00:41 Temperature 36.8 C 36.3 C L Pulse Rate 89 79 Respiratory Rate 18 16 Blood Pressure 141/70 H 157/59 H Pulse Oximetry 96 98 Oxygen Delivery Room Air 04/14/24 04:00 04/14/24 04:00 04/14/24 08:00 Temperature 36.1 C L Pulse Rate 77 81 84 Respiratory Rate 16 Blood Pressure 146/53 H Pulse Oximetry 100 Oxygen Delivery 04/14/24 08:40 04/14/24 12:00 04/14/24 12:00 Temperature 36.6 C Pulse Rate 83 81 Respiratory Rate 20 Blood Pressure 146/64 H Pulse Oximetry 97 Oxygen Delivery Room Air Exam 2 Const: General: no acute distress HENMT: Mouth: Yes moist mucous membranes Eyes: General: appearance normal, both eyes and all related structures S clera: sclerae normal Resp: Effort & Inspection: normal respiratory effort Cardio: Rate: regular rate Rhythm: regular rhythm Heart sounds: no murmurs Skin: General skin exam: normal color Neuro: Speech: normal speech Psych: Mental Status: mental status grossly normal Affect: normal affect Results Labs and Meds 04/14/24 09:40 04/14/24 09:40 Lab results: CBC 04/13/24 04/14/24 Range/Units 20:50 09:40 WBC 10.3 H (4.5-10.0) K/mm3 RBC 2.67 L (4.2-5.4) M/mm3 Hgb 7.1 L 8.2 L (12.0-15.0) g/dL Hct 22.4 L 26.5 L (37.0-47.0) % Plt Count 279 (150-375) k/mm3 Comprehensive Metabolic Panel 04/13/24 04/14/24 Range/Units 20:50 09:40 Sodium 127 L 129 L (137-145) mmol/L Potassium 3.2 L 3.9 (3.4-5.0) mmol/L Chloride 93 L 95 L (98-107) mmol/L Carbon Dioxide 29 28 (22-30) mmol/L BUN 20 H 20 H (7-17) mg/dL Creatinine 2.48 H 2.06 H (0.7-1.0) mg/dL Glucose 98 123 H (65-110) mg/dL Calcium 8.1 L 8.2 L (8.4-10.2) mg/dL Intake and Output 04/13/24 04/14/24 04/14/24 23:59 07:59 15:59 Intake Total 240 575 118 Output Total 700 600 Balance - -25 118 Intake: Oral 240 575 118 Output: Catheter Urine 700 600 Urethral Catheter 700 600 Other: Number of Bowel Movements Today 4 5 6 Patient Weight 04/14/24 23:59 Weight 72.5 kg
--- NOTE | 2024-04-14 13:50 | IVDEFINITY ---
Prior to administration of IV Definity the patient was educated on the risks and benefits of the imaging enhancing agent including potential adverse side effects. The patient verbalized understanding. Allergies were verified. No exclusion criteria were identified and at least one of the following inclusion criteria were met: 1) physician request, 2) patient technically difficult to image (per the [place] [employer] guidelines of two or more segments not discernable within the apical view), or 3) questionable left ventricular function. ?
[2024-04-14] MEDS: ONDANSETRON INJ 4 MG/2 ML VIAL IV PUSH (15:30)
--- NOTE | 2024-04-14 16:34 | P.PNIM_ITS ---
Progress Note: A&P Assessment and Plan (1) Acute kidney injury (JAE) with acute tubular necrosis (ATN): Code(s): N17.0 - Acute kidney failure with tubular necrosis Status: Acute Assessment and Plan: Patient received IV contrast on 04/04/24 with already underlying CKD now with worsening renal failure * Baseline Cr around 2.00. * Avoid nephrotoxic drugs. * Avoid NSAIDs. * Routine CMP monitoring GFR. * Monitor electrolytes especially potassium. 04/06/2024 * Worsening Cr 4.40 today could be secondary Anesthesia from EGD * NS 75 D/C D/5 * nephrology consulted for further recommendations and evaluation * bilateral renal ultrasound * Cipro D/c switched to Rocephin 04/07/2024: * Worsening Cr 5.16 * CT showing contrast in Kidneys from 3 days prior and anasarca in the stomach * failed fluid challenge will D/C * no urinary output Pedro placed with only 50 mL * Plan for renal function in the AM if no improvement hoping for renal recovery but may need temporary dialysis with consult to surgery for dialysis access. * Potassium 5.2 dose of Lokelma 04/08: JAE continues to worsen, acidosis continues to worsen, declining mental status with slurred speech and patient stating that she believes she a stroke, MRI ordered, several medications held this afternoon. Nephrology aware as I spoke with Dr. Reyna earlier and RN called to update with worsening clinical picture. 04/09 pt to have Cam placed today to start temp dialysis soon 04/10: pt sp dialysis yesterday and today, unfortunately pt has no fluid off 04/11 * Creatinine 3.19, currently receiving HD 04/12/ Cr 2.37 from 3.19 yesterday. - Seen by nephro and possibly HD tomorrow or day after. - Continue to monitor renal panel closely. - Continue to avoid nephrotoxins. - No plans for HD today per pt. 04/14: Cr continues to improve 2.72>>2.48>>2.06. No further need for HD per nephro. Temporary HD catheter to be removed in AM. Continue to avoid nephrotoxins. Continue meds dosing per renal function. 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 04/12 Hgb 6.7 earlier but repeat 7.2 Continue to monitor Hgb closely. Continue oral PPI. 04/13/ Hgb 7.0 today. - Continue to monitor closely. - Continue oral PPI. 04/14 Appears stable and improving. - 7.0>>8.2 - Continue to monitor closely. - Continue oral PPI. (3) Colitis: Code(s): K52.9 - Noninfective gastroenteritis and colitis, unspecified Status: Acute Assessment and Plan: CT abdomen showing colitis/There is an approximately 11.4 x 24 mm fatty lesion within the hepatic flexure of the colon, most consistent with a lipoma. This type of lesion can erode and cause rectal bleeding. * GI consulted * GI recommended ciprofloxacin and Flagyl * will need follow-up colonoscopy in 6-8 weeks after infectious process resulting unless her hemoglobin continues to trend down * PPI BID * clear liquid diet * WBC 12.2 today * Stool studies pending * bright red blood in stool reported * monitoring HGB 04/06/2024 * patient advanced to low-fiber diet but had N/V change back to clear liquid * F/U ct ABD * Hgb stable 04/08: Tolerated clears but altered LOC and slurred speech today, patient moved to IMU after findings of metabolic acidosis with incomplete compensation. 04/09 : pt remains acidotic awaiting dialysis, creat is 6.9, potassium is 5, ph is low, sodium is 125 04/10: ph is improving, creat is 4, sodium is 125 sp 2 dialysis sessions 04/12: Denies any diarrhea episodes today. Tolerating renal diet well so far. C-diff negative. Continue to monitor for acute symptoms. 04/13/ No diarrhea episodes today. Continues to tolerate renal diet well. C-Diff test negative. Continue to monitor closely for acute symptoms. 04/14/ Appears resolved with pt tolerating regular renal diet well. (4) Chronic kidney disease, stage IV (severe): Code(s): N18.4 - Chronic kidney disease, stage 4 (severe) Status: Acute Assessment and Plan: * Gentle IV hydration. * Baseline around 2.00 currently 3.00 04/05/24 * Avoid nephrotoxic drugs. * Monitor antihypertensive drug therapy. * Avoid NSAIDs. * Routine CMP monitoring GFR. * Monitor electrolytes especially potassium. * Antibiotic doses depending on creatinine clearance. * Pharmacy does medications. * Routine follow-up with Nephrology as an outpatient. 04/06/2024 * Worsening Cr 4.40 today could be secondary Anesthesia from EGD * NS 75 D/C D/ * nephrology consulted for further recommendations and evaluation * bilateral renal ultrasound * Cipro D/c switched to Rocephin 04/08: Tolerated clears but altered LOC and slurred speech today, patient moved to IMU after findings of metabolic acidosis with incomplete compensation. Potentially encephalopathy due to build up of sedating medications. MRI ordered to assess for Stroke. 04/11 * Mental status clinically improving with HD and 04/10 MRI with 'normal aging brain' * 04/12 Appears to be improving clinically and with labs. Nephro following and possible dialysis tomorrow or day after. HD catheter to Left Groin. Continue to avoid nephrotoxins. Meds dosing per renal function. 04/13/ Cr 2.72 today from 2.37 yesterday. Nephro following and no HD today. HD catheter to Left Groin. Continue to avoid nephrotoxins. Meds dosing per renal function. 04/14 Much improving. Cr 2.06 today from 2.37 yesterday. Continue close monitoring with nephro assistance. Continue to avoid nephrotoxins. Meds dosing per renal function. (5) Chronic anemia: Code(s): D64.9 - Anemia, unspecified Status: Chronic Assessment and Plan: patient's baseline is usually hemoglobin of 10 to 11 likely secondary to her chronic kidney disease but possible active GI bleed currently * Monitor HGB * Transfuse PRBC if Hgb <7.0 * hemodynamically stable 04/08: Hgb 7.9 in AM and 8.9 in afternoon 04/09: hb is 8 today 04/11 hgb 7.5, continue to trend 04/12/ Initial Hgb 6.7 and repeat level 7.2 Continue to monitor Hgb closely. Transfuse for Hgb <7 EGD showing Ferrell's Esophagus with dysplasia, no active bleeding. 04/13/ Hgb 7.0 today. Continue to monitor Hgb closely. Transfuse for Hgb <7 EGD showing Ferrell's Esophagus with dysplasia, no active bleeding. 04/14 Appears stable, 8.2 today >>7.0 yesterday. Continue to monitor closely. Transfuse for Hgb <7 EGD showing Ferrell's Esophagus with dysplasia, no active bleeding. 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 * Continue to monitor H&H closely. (7) Hypertension: Code(s): I10 - Essential (primary) hypertension Status: Acute Assessment and Plan: reviewed and currently well controlled (8) Hypomagnesemia: Code(s): E83.42 - Hypomagnesemia Status: Acute Assessment and Plan: * Mag 1.1 * replenished with 4g * trend and replenish as needed RESOLVED (9) Hyponatremia: Code(s): E87.1 - Hypo-osmolality and hyponatremia Status: Acute Assessment and Plan: * chronically low, likely related to CKD. * Appears to be stabilizing. * no focal neurological deficits noted. * Further mgt per trouble tracer. * Currently not on salt tabs. (10) Metabolic acidosis: Code(s): E87.20 - Acidosis, unspecified Status: Acute Assessment and Plan: - Previously on IV and PO sodium bicarbonate. - Currently resolved. (11) Encephalopathy acute: Code(s): G93.40 - Encephalopathy, unspecified Status: Acute Assessment and Plan: 04/08: patient with slurred speech difficulty awakening concerned for CO2 narcosis ABG resulted metabolic acidosis, beta hydroxybutyrate and lactic acid normal metabolic acidosis related to decreased renal function ammonia level negative, MRI brain without contrast also negative 04/09 likely secondary to uremia and severe MA 04/10 pt appears less confused today states she feels very tired 04/11 oriented x3, alert, continue to monitor 04/12: Well oriented with no focal neuro deficits noted. 04/13/ Appears resolved. 04/14: Mentation wnl. Plan Awaiting nephro decision on long-term renal mgt and pt may need rehab placement. Unable to participate in PT/OT due to temporary HD catheter on left-femoral artery. Time Spent With Patient Time with patient: 25 - 35 minutes Subjective Date/time seen: 04/14/24 11:34 Patient states she feels alright and states she was informed by trouble tracer that her temporary dialysis catheter will be removed tomorrow as he no longer needs dialysis. Interval history: Patient calm on bedrest and looks to be in no acute distress. Review of Systems Review of Systems: No specific complaints All systems reviewed & are unremarkable except as noted in HPI and below Exam Narrative: HEENT: PERRL, sclerae anicteric, pharyngeal mucosa pink and intact NECK: Supple, No JVD, adenopathy, or thyromegaly CHEST: Clear bilaterally. HEART: NL S1/S2, regular, no murmurs ABDOMEN: BS+, soft, nontender, non-distended. EXTREMITIES: No cyanosis, edema, or clubbing. Dialysis catheter to Left Groin. NEUROLOGIC: Alert, Oriented to person, place, and time. CN intact and symmetric to inspection. MUSCULOSKELETAL: Tone and strength symmetric, but slightly diminished in LE's. PSYCH: Pleasant and co-operative. Objective Data Vital Signs Vital Signs: Vital Signs - 24 hr 04/13/24 19:44 04/13/24 19:50 04/13/24 20:00 Temperature 97.6 F Pulse Rate 122 H 122 H Respiratory Rate 16 Blood Pressure 138/61 Pulse Oximetry 100 Oxygen Delivery Room Air 04/13/24 20:20 04/14/24 00:41 04/14/24 04:00 Temperature 98.3 F 97.4 F L 96.9 F L Pulse Rate 89 79 77 Respiratory Rate 18 16 16 Blood Pressure 141/70 H 157/59 H 146/53 H Pulse Oximetry 96 98 100 Oxygen Delivery 04/14/24 04:00 04/14/24 08:00 04/14/24 08:40 Temperature Pulse Rate 81 84 Respiratory Rate Blood Pressure Pulse Oximetry Oxygen Delivery Room Air 04/14/24 12:00 04/14/24 12:00 Temperature 98 F Pulse Rate 83 81 Respiratory Rate 20 Blood Pressure 146/64 H Pulse Oximetry 97 Oxygen Delivery Intake/Output Intake/Output: Intake & Output 04/11/24 04/12/24 04/13/24 04/14/24 23:59 23:59 23:59 23:59 Intake Total 1105 1290 868 811 Output Total 8496 734 2390 600 Balance -70 890 -132 211 Meds/Results Medications: Active Medications Generic Name Dose Route Start Last Admin Trade Name Freq PRN Reason Stop Dose Admin Acetaminophen 650 mg 04/04/24 12:10 04/12/24 20:58 Acetaminophen 325 Mg Tablet PO 650 mg Q4H PRN Administration Mild Pain (1-3) or Fever Amlodipine Besylate 2.5 mg 04/12/24 12:45 04/14/24 08:40 Amlodipine Besylate 2.5 Mg Tablet PO 2.5 mg QAM JUAN PABLO Administration Artificial Tears 1 drop 04/04/24 20:15 Artificial Tears Ophth Soln 15 Ml Bottle EACH EYE Q4H PRN Dry Eye(S) Calcitriol 0.25 mcg 04/06/24 09:00 04/13/24 08:46 Calcitriol 0.25 Mcg Capsule BY MOUTH 0.25 mcg [id number] JUAN PABLO Administration Carvedilol 12.5 mg 04/14/24 21:00 Carvedilol 12.5 Mg Tablet PO Q12HR [facility] Dextrose 12.5 gm 04/04/24 21:51 Dextrose 50% 25 Gm/50 Ml Syringe IV PUSH PRN PRN Hypoglycemia Protocol Famotidine 10 mg 04/10/24 09:00 04/14/24 08:41 Famotidine 10 Mg Tablet PO 10 mg DAILY JUAN PABLO Administration Glucagon 1 mg 04/04/24 21:51 Glucagon For Inj 1 Mg Vial IM PRN PRN Hypoglycemia Protocol Glucose 15 gm 04/04/24 21:51 Glucose Oral Gel 15 Gm Of Glucse In 37.5 Gm Tube PO PRN PRN Hypoglycemia Protocol Dextrose 1,000 mls @ 100 mls/hr 04/04/24 21:51 Dextrose 5% 1,000 Ml IVPB PRN PRN Hypoglycemia Protocol Albumin Human 50 mls @ 999 mls/hr 04/09/24 11:16 Albutein IVPB 05/09/24 11:15 Q10M PRN HYPOTENSION Latanoprost 1 drop 04/05/24 09:00 04/14/24 08:41 Latanoprost 0.005% Op Soln 2.5 Ml Btl EACH EYE 1 drop DAILY JUAN PABLO Administration Loratadine 10 mg 04/04/24 20:25 04/12/24 20:58 Loratadine 10 Mg Tablet PO 10 mg QAM PRN Administration allergy symptoms Ondansetron HCl 4 mg 04/04/24 12:10 04/13/24 12:42 Ondansetron Inj 4 Mg/2 Ml Vial IV PUSH 4 mg Q4H PRN Administration Nausea Perflutren Lipid Microsphere 0 ml 04/14/24 00:11 Perflutren Lipid Microspheres 1.5 Ml Vial Diluted To 10 Ml Total Volume IV PUSH 04/17/24 00:11 ONCE PRN adequate visualization Protocol Pravastatin Sodium 40 mg 04/05/24 09:00 04/14/24 08:41 Pravastatin Sodium 20 Mg Tablet PO 40 mg DAILY JUAN PABLO Administration Vitamin D 2,000 units 04/05/24 09:00 04/14/24 08:40 Cholecalciferol 1,000 Units Tablet PO 2,000 units BID JUAN PABLO Administration Radiology Results: ITS Impressions Renal Ultrasound 04/06/24 11:46 Impression: Unremarkable ultrasound of the kidneys. Cholelithiasis and gallbladder sludge incidentally noted. Abdomen/Pelvis CT 04/06/24 19:19 IMPRESSION: Left basilar infiltrate with a small right-sided pleural effusion, an interval change from 04/04/2023. Marked delayed excretion within the bilateral kidneys, consistent with patient's history. Fluid distention of the stomach, extending to the proximal jejunum consistent with patient's history Mural thickening within the rectosigmoid colon with multiple diverticula and trace surrounding inflammatory change, similar in appearance to examination dated 04/04/2024. No drainable fluid collections or gross perforation is noted. Interval development of significant anasarca and retroperitoneal inflammatory change. Brain MRI 04/08/24 17:05 IMPRESSION: 1. Normal aging brain. Chest X-Ray 04/10/24 08:29 Impression: 1: No acute cardiopulmonary disease. Labs Labs: Laboratory Results - last 24 hr 04/13/24 04/13/24 04/14/24 18:31 20:50 00:25 WBC RBC Hgb 7.1 L Hct 22.4 L MCV MCH MCHC RDW Plt Count MPV Sodium 127 L Potassium 3.2 L Chloride 93 L Carbon Dioxide 29 Anion Gap 5 BUN 20 H Creatinine 2.48 H Estim Creat Clear Calc Not Reportable Estimated GFR 19 L Glucose 98 POC Capillary Glucose 130 H 89 Calcium 8.1 L Magnesium 2.0 TSH (Reflex) Free T4 Total T3 04/14/24 04/14/24 04/14/24 01:00 09:40 11:11 WBC 10.3 H RBC 2.67 L Hgb 8.2 L Hct 26.5 L MCV 99.3 MCH 30.7 MCHC 30.9 L RDW 14.6 H Plt Count 279 MPV 9.8 Sodium 129 L Potassium 3.9 Chloride 95 L Carbon Dioxide 28 Anion Gap 6 BUN 20 H Creatinine 2.06 H Estim Creat Clear Calc Not Reportable Estimated GFR 24 L Glucose 123 H POC Capillary Glucose 141 H Calcium 8.2 L Magnesium TSH (Reflex) 5.260 H Free T4 1.13 Total T3 0.69 L Quality VTE Prophylaxis VTE prophylaxis: mechanical ordered Hospitalist [facility] Advance Care Plan I have confirmed that the patient's Advanced Care Plan is present, code status is documented, or surrogate decision maker is listed in patient medical record.: Yes Medication Reconciliation I have utilized all available resources to obtain, update and review the patients current medications (includes all prescriptions, OTC, herbals, cannabis, and nutritional supplements).: Yes
[2024-04-14 17:47] LABS: Glucose Point of Care 152 mg/dl (65-105)
[2024-04-14] MEDS: ACETAMINOPHEN 325 MG TABLET 650 MG PO (21:12)
[2024-04-14] MEDS: carvediloL 12.5 MG TABLET PO (21:12)
[2024-04-14] MEDS: LOPERAMIDE HCL 2 MG CAPSULE 4 MG PO (21:12)
[2024-04-14 21:24] LABS: Glucose Point of Care 135 mg/dl (65-105)
[2024-04-15] VITALS (9 sets, daily range): BP systolic 102–146; BP diastolic 52–72; PULSE 60–84; RESP 18–20; TEMP 36.4–36.9; O2SAT 94–100
[2024-04-15 00:16] LABS: Glucose Point of Care 146 mg/dl (65-105)
[2024-04-15 06:01] LABS: Glucose Point of Care 109 mg/dl (65-105)
[2024-04-15 07:14] LABS: Basophils Percent Auto 0.5 % (0.2-1.2); Eosinophils Absolute Auto 0.5 K/mm3 (0-0.3); Eosinophils Percent Auto 5.5 % (0-4.4); Hematocrit 23.9 % (37.0-47.0); Hemoglobin 7.4 g/dL (12.0-15.0); Immature Granulocyte Absolute 0.13 K/mm3 (0.00-0.031); Immature Granulocyte Percent A 1.5 % (0-0.5); Lymphocytes Absolute Auto 0.87 K/mm3 (0.9-3.2); Lymphocytes Percent Auto 10.2 % (18.3-44.2); Mean Corpuscular Hemoglobin 30.8 pg (26-34); Mean Corpuscular Volume 99.6 fl (80-100); Monocytes Percent Auto 12.2 % (2.6-8.5); Neutrophils Absolute Auto 5.9 K/mm3 (1.3-6.7); Neutrophils Percent Auto 70.1 % (45.5-73.1); Platelet Count Result 255 k/mm3 (150-375); Red Cell Distribution Width 14.6 % (11.5-14.5); White Blood Count 8.5 K/mm3 (4.5-10.0)
[2024-04-15 07:15] LABS: Alanine Aminotransferase 11 U/L (6-35); Albumin Level 3.2 g/dL (3.5-5.1); Alkaline Phosphatase 50 U/L (38-126); Anion Gap 5 mmol/L (4-12); Aspartate Amino Transferase 21 U/L (14-36); Bilirubin,Total 0.5 mg/dL (0.2-1.3); Blood Urea Nitrogen 19 mg/dL (7-17); Calcium 8.3 mg/dL (8.4-10.2); Carbon Dioxide 32 mmol/L (22-30); Chloride 95 mmol/L (98-107); Estimated Glomerular Filt Rate 23; Glucose 102 mg/dL (65-110); Phosphorus 3.8 mg/dL (2.5-4.5); Potassium 3.4 mmol/L (3.4-5.0); Sodium 132 mmol/L (137-145)
[2024-04-15] MEDS: carvediloL 12.5 MG TABLET PO ×2 (09:09→20:27)
[2024-04-15] MEDS: PRAVASTATIN SODIUM 20 MG TABLET 40 MG PO (09:10)
[2024-04-15] MEDS: FAMOTIDINE 10 MG TABLET PO (09:10)
[2024-04-15] MEDS: amLODIPine BESYLATE 2.5 MG TABLET PO (09:10)
[2024-04-15] MEDS: calcitrioL 0.25 MCG CAPSULE BY MOUTH (09:10)
[2024-04-15] MEDS: CHOLECALCIFEROL 1,000 UNITS TABLET 2000 UNITS PO ×2 (09:10→17:54)
[2024-04-15] MEDS: LATANOPROST 0.005% OP SOLN 2.5 ML BTL 1 DROP EACH EYE (09:10)
[2024-04-15] MEDS: LORATADINE 10 MG TABLET PO (09:10)
--- NOTE | 2024-04-15 13:37 | P.PNNP_ITS ---
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 * s/p temporary HD catheter placement on 04/09/23 * HD on 04/09, 04/10, and 04/11 * improving/stable creatinine and improved urine output noted * continue to hold HD -- ok to remove femoral HD catheter * follow trend of repeat labs and UOP (2) Chronic kidney disease, stage IV (severe): Code(s): N18.4 - Chronic kidney disease, stage 4 (severe) Status: Acute Assessment and Plan: * baseline creatinine runs ~ 1.8 - 2.3mg/dl * due hypertension, diabetes, and age-related change with contributions with previous use of NSAIDs (3) Hyponatremia: Code(s): E87.1 - Hypo-osmolality and hyponatremia Status: Acute Assessment and Plan: * chronic issues at baseline * likely worsened by JAE/ARF * improved woth dialysis and fluid restriction * continue fluid restriction for now * was on salt tabs as an outpatient * follow trend of sodium level (4) GI bleed: Code(s): K92.2 - Gastrointestinal hemorrhage, unspecified Status: Acute Assessment and Plan: * 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 * known history of Barrettt's esophagus * Hgb dropped since admission * GI following: * s/p EGD - no active bleeding with Ferrell's esophagus * on PPI * follow trend of H/H * PRBC transfusion per protocol (5) Colitis: Code(s): K52.9 - Noninfective gastroenteritis and colitis, unspecified Status: Acute Assessment and Plan: * as noted by admission CT of A/P * GI recommendations noted * off antibiotics * advance diet as tolerated (6) Chronic anemia: Code(s): D64.9 - Anemia, unspecified Status: Chronic Assessment and Plan: * probably related to CKD * acute worsening noted since admission * complicated by #5 * start Retacrit SQ 3x/week since holding further dialysis * follow H/H (7) Hypertension: Code(s): I10 - Essential (primary) hypertension Status: Acute Assessment and Plan: * reasonable control at this time * lisinopril on hold due to #1 * follow trend of hemodynamics (8) Generalized weakness: Code(s): R53.1 - Weakness Status: Acute Assessment and Plan: * due to acute illness in association with anemia * PT/OT as tolerated Will continue to follow. L Subjective Date/time seen: 04/15/24 13:37 Interval history: Follow-up for acute kidney injury/acute renal failure on chronic kidney disease. Renal function/creatinine remains relatively stable with good urine output in the last 24 - 48 hours; no apparent distress noted other than fatigue/weakness; no other acute complaints voiced; no issues/events overnight or earlier this morning. Exam 2 Narrative: General: elderly female in NAD Heart: normal S1 and S2; no rub Lungs: clear to auscultation Abdomen: soft, nondistended, positive bowel sounds Extremities: no cyanosis or clubbing; no edema Skin: no nodules Objective Data Vital Signs Vital Signs: Vital Signs Temp Pulse Resp BP Pulse Ox O2 Del Method 04/15/24 12:00 97.8 F 78 18 102/72 100 04/15/24 09:15 81 04/15/24 09:09 84 04/15/24 08:00 97.6 F 66 18 133/60 98 04/15/24 04:00 60 04/15/24 04:00 98.0 F 70 20 146/68 H 94 04/15/24 00:00 67 04/15/24 00:00 98.4 F 68 20 127/52 L 96 04/14/24 21:12 84 04/14/24 20:00 82 04/14/24 20:00 Room Air 04/14/24 20:00 98.1 F 82 18 138/87 100 Intake/Output Intake/Output: Intake & Output 04/12/24 04/13/24 04/14/24 04/15/24 23:59 23:59 23:59 23:59 Intake Total 1290 868 929 930 Output Total 400 1000 1000 350 Balance 436 -132 -06 580 Meds/Results Medications: Active Medications Generic Name Dose Route Start Last Admin Trade Name Freq PRN Reason Stop Dose Admin Acetaminophen 650 mg 04/04/24 12:10 04/14/24 21:12 Acetaminophen 325 Mg Tablet PO 650 mg Q4H PRN Administration Mild Pain (1-3) or Fever Amlodipine Besylate 2.5 mg 04/12/24 12:45 04/15/24 09:10 Amlodipine Besylate 2.5 Mg Tablet PO 2.5 mg QAM JUAN PABLO Administration Artificial Tears 1 drop 04/04/24 20:15 Artificial Tears Ophth Soln 15 Ml Bottle EACH EYE Q4H PRN Dry Eye(S) Calcitriol 0.25 mcg 04/06/24 09:00 04/15/24 09:10 Calcitriol 0.25 Mcg Capsule BY MOUTH 0.25 mcg [id number] JUAN PABLO Administration Carvedilol 12.5 mg 04/14/24 21:00 04/15/24 09:09 Carvedilol 12.5 Mg Tablet PO 12.5 mg Q12HR JUAN PABLO Administration Dextrose 12.5 gm 04/04/24 21:51 Dextrose 50% 25 Gm/50 Ml Syringe IV PUSH PRN PRN Hypoglycemia Protocol Epoetin Ki-epbx 10,000 units 04/16/24 09:00 Epoetin Ki-Epbx 10,000 Units/Ml Vial SUB-Q [id number] JUAN PABLO Famotidine 10 mg 04/10/24 09:00 04/15/24 09:10 Famotidine 10 Mg Tablet PO 10 mg DAILY JUAN PABLO Administration Glucagon 1 mg 04/04/24 21:51 Glucagon For Inj 1 Mg Vial IM PRN PRN Hypoglycemia Protocol Glucose 15 gm 04/04/24 21:51 Glucose Oral Gel 15 Gm Of Glucse In 37.5 Gm Tube PO PRN PRN Hypoglycemia Protocol Dextrose 1,000 mls @ 100 mls/hr 04/04/24 21:51 Dextrose 5% 1,000 Ml IVPB PRN PRN Hypoglycemia Protocol Albumin Human 50 mls @ 999 mls/hr 04/09/24 11:16 Albutein IVPB 05/09/24 11:15 Q10M PRN HYPOTENSION Latanoprost 1 drop 04/05/24 09:00 04/15/24 09:10 Latanoprost 0.005% Op Soln 2.5 Ml Btl EACH EYE 1 drop DAILY JUAN PABLO Administration Loratadine 10 mg 04/04/24 20:25 04/15/24 09:10 Loratadine 10 Mg Tablet PO 10 mg QAM PRN Administration allergy symptoms Ondansetron HCl 4 mg 04/04/24 12:10 04/14/24 15:30 Ondansetron Inj 4 Mg/2 Ml Vial IV PUSH 4 mg Q4H PRN Administration Nausea Perflutren Lipid Microsphere 0 ml 04/14/24 00:11 Perflutren Lipid Microspheres 1.5 Ml Vial Diluted To 10 Ml Total Volume IV PUSH 04/17/24 00:11 ONCE PRN adequate visualization Protocol Pravastatin Sodium 40 mg 04/05/24 09:00 04/15/24 09:10 Pravastatin Sodium 20 Mg Tablet PO 40 mg DAILY JUAN PABLO Administration Vitamin D 2,000 units 04/05/24 09:00 04/15/24 09:10 Cholecalciferol 1,000 Units Tablet PO 2,000 units BID JUAN PABLO Administration Radiology Results: ITS Impressions Renal Ultrasound 04/06/24 11:46 Impression: Unremarkable ultrasound of the kidneys. Cholelithiasis and gallbladder sludge incidentally noted. Abdomen/Pelvis CT 04/06/24 19:19 IMPRESSION: Left basilar infiltrate with a small right-sided pleural effusion, an interval change from 04/04/2023. Marked delayed excretion within the bilateral kidneys, consistent with patient's history. Fluid distention of the stomach, extending to the proximal jejunum consistent with patient's history Mural thickening within the rectosigmoid colon with multiple diverticula and trace surrounding inflammatory change, similar in appearance to examination dated 04/04/2024. No drainable fluid collections or gross perforation is noted. Interval development of significant anasarca and retroperitoneal inflammatory change. Brain MRI 04/08/24 17:05 IMPRESSION: 1. Normal aging brain. Chest X-Ray 04/10/24 08:29 Impression: 1: No acute cardiopulmonary disease. Labs Labs: Laboratory Tests 04/15/24 06:43 04/15/24 06:43 Calcium 8.3 L Phosphorus 3.8 Magnesium 2.0 Total Bilirubin 0.5 AST 21 ALT 11 Alkaline Phosphatase 50 Total Protein 6.0 L Albumin 3.2 L
--- NOTE | 2024-04-15 15:00 | P.PNIM_ITS ---
Progress Note: A&P Assessment and Plan (1) Acute kidney injury (JAE) with acute tubular necrosis (ATN): Code(s): N17.0 - Acute kidney failure with tubular necrosis Status: Acute Assessment and Plan: Patient received IV contrast on 04/04/24 with already underlying CKD now with worsening renal failure * Baseline Cr around 2.00. * Avoid nephrotoxic drugs. * Avoid NSAIDs. * Routine CMP monitoring GFR. * Monitor electrolytes especially potassium. 04/06/2024 * Worsening Cr 4.40 today could be secondary Anesthesia from EGD * NS 75 D/C D/5 * nephrology consulted for further recommendations and evaluation * bilateral renal ultrasound * Cipro D/c switched to Rocephin 04/07/2024: * Worsening Cr 5.16 * CT showing contrast in Kidneys from 3 days prior and anasarca in the stomach * failed fluid challenge will D/C * no urinary output Pedro placed with only 50 mL * Plan for renal function in the AM if no improvement hoping for renal recovery but may need temporary dialysis with consult to surgery for dialysis access. * Potassium 5.2 dose of Lokelma 04/08: JAE continues to worsen, acidosis continues to worsen, declining mental status with slurred speech and patient stating that she believes she a stroke, MRI ordered, several medications held this afternoon. Nephrology aware as I spoke with Dr. Reyna earlier and RN called to update with worsening clinical picture. 04/09 pt to have Cam placed today to start temp dialysis soon 04/10: pt sp dialysis yesterday and today, unfortunately pt has no fluid off 04/11 * Creatinine 3.19, currently receiving HD Cr 2.37 from 3.19 yesterday. - Seen by nephro and possibly HD tomorrow or day after. - Continue to monitor renal panel closely. - Continue to avoid nephrotoxins. - No plans for HD today per pt. 04/14: Cr continues to improve 2.72>>2.48>>2.06. No further need for HD per nephro. Temporary HD catheter to be removed in AM. Continue to avoid nephrotoxins. Continue meds dosing per renal function. 04/15 cr/BUN 2.12/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 04/12 Hgb 6.7 earlier but repeat 7.2 Continue to monitor Hgb closely. Continue oral PPI. 04/13/ Hgb 7.0 today. - Continue to monitor closely. - Continue oral PPI. 04/14 Appears stable and improving. - 7.0>>8.2 - Continue to monitor closely. - Continue oral PPI. 04/15- 7.4 today- monitor (3) Colitis: Code(s): K52.9 - Noninfective gastroenteritis and colitis, unspecified Status: Acute Assessment and Plan: CT abdomen showing colitis/There is an approximately 11.4 x 24 mm fatty lesion within the hepatic flexure of the colon, most consistent with a lipoma. This type of lesion can erode and cause rectal bleeding. * GI consulted * GI recommended ciprofloxacin and Flagyl * will need follow-up colonoscopy in 6-8 weeks after infectious process resulting unless her hemoglobin continues to trend down * PPI BID * clear liquid diet * WBC 12.2 today * Stool studies pending * bright red blood in stool reported * monitoring HGB 04/06/2024 * patient advanced to low-fiber diet but had N/V change back to clear liquid * F/U ct ABD * Hgb stable 04/08: Tolerated clears but altered LOC and slurred speech today, patient moved to IMU after findings of metabolic acidosis with incomplete compensation. 04/09 : pt remains acidotic awaiting dialysis, creat is 6.9, potassium is 5, ph is low, sodium is 125 04/10: ph is improving, creat is 4, sodium is 125 sp 2 dialysis sessions 04/12: Denies any diarrhea episodes today. Tolerating renal diet well so far. C-diff negative. Continue to monitor for acute symptoms. 04/13/ No diarrhea episodes today. Continues to tolerate renal diet well. C-Diff test negative. Continue to monitor closely for acute symptoms. 04/14/ Appears resolved with pt tolerating regular renal diet well. (4) Chronic kidney disease, stage IV (severe): Code(s): N18.4 - Chronic kidney disease, stage 4 (severe) Status: Acute Assessment and Plan: * Gentle IV hydration. * Baseline around 2.00 currently 3.00 04/05/24 * Avoid nephrotoxic drugs. * Monitor antihypertensive drug therapy. * Avoid NSAIDs. * Routine CMP monitoring GFR. * Monitor electrolytes especially potassium. * Antibiotic doses depending on creatinine clearance. * Pharmacy does medications. * Routine follow-up with Nephrology as an outpatient. 04/06/2024 * Worsening Cr 4.40 today could be secondary Anesthesia from EGD * NS 75 D/C D/ * nephrology consulted for further recommendations and evaluation * bilateral renal ultrasound * Cipro D/c switched to Rocephin 04/08: Tolerated clears but altered LOC and slurred speech today, patient moved to IMU after findings of metabolic acidosis with incomplete compensation. Potentially encephalopathy due to build up of sedating medications. MRI ordered to assess for Stroke. 04/11 * Mental status clinically improving with HD and 04/10 MRI with 'normal aging brain' * 04/12 Appears to be improving clinically and with labs. Nephro following and possible dialysis tomorrow or day after. HD catheter to Left Groin. Continue to avoid nephrotoxins. Meds dosing per renal function. 04/13/ Cr 2.72 today from 2.37 yesterday. Nephro following and no HD today. HD catheter to Left Groin. Continue to avoid nephrotoxins. Meds dosing per renal function. 04/14 Much improving. Cr 2.06 today from 2.37 yesterday. Continue close monitoring with nephro assistance. Continue to avoid nephrotoxins. Meds dosing per renal function. (5) Chronic anemia: Code(s): D64.9 - Anemia, unspecified Status: Chronic Assessment and Plan: patient's baseline is usually hemoglobin of 10 to 11 likely secondary to her chronic kidney disease but possible active GI bleed currently * Monitor HGB * Transfuse PRBC if Hgb <7.0 * hemodynamically stable 04/08: Hgb 7.9 in AM and 8.9 in afternoon 04/09: hb is 8 today 04/11 hgb 7.5, continue to trend 04/12/ Initial Hgb 6.7 and repeat level 7.2 Continue to monitor Hgb closely. Transfuse for Hgb <7 EGD showing Ferrell's Esophagus with dysplasia, no active bleeding. 04/13/ Hgb 7.0 today. Continue to monitor Hgb closely. Transfuse for Hgb <7 EGD showing Ferrell's Esophagus with dysplasia, no active bleeding. 04/14 Appears stable, 8.2 today >>7.0 yesterday. Continue to monitor closely. Transfuse for Hgb <7 EGD showing Ferrell's Esophagus with dysplasia, no active bleeding. 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 * Continue to monitor H&H closely. (7) Hypertension: Code(s): I10 - Essential (primary) hypertension Status: Acute Assessment and Plan: reviewed and currently well controlled (8) Hypomagnesemia: Code(s): E83.42 - Hypomagnesemia Status: Acute Assessment and Plan: * Mag 1.1 * replenished with 4g * trend and replenish as needed RESOLVED (9) Hyponatremia: Code(s): E87.1 - Hypo-osmolality and hyponatremia Status: Acute Assessment and Plan: * chronically low, likely related to CKD. * Appears to be stabilizing. * no focal neurological deficits noted. * Further mgt per automatic seamer. * Currently not on salt tabs. (10) Metabolic acidosis: Code(s): E87.20 - Acidosis, unspecified Status: Acute Assessment and Plan: - Previously on IV and PO sodium bicarbonate. - Currently resolved. (11) Encephalopathy acute: Code(s): G93.40 - Encephalopathy, unspecified Status: Acute Assessment and Plan: 04/08: patient with slurred speech difficulty awakening concerned for CO2 narcosis ABG resulted metabolic acidosis, beta hydroxybutyrate and lactic acid normal metabolic acidosis related to decreased renal function ammonia level negative, MRI brain without contrast also negative 04/09 likely secondary to uremia and severe MA 04/10 pt appears less confused today states she feels very tired 04/11 oriented x3, alert, continue to monitor 04/12: Well oriented with no focal neuro deficits noted. 04/13/ Appears resolved. 04/14: Mentation wnl. unchanged- continue to monitor Plan Awaiting nephro decision on long-term renal mgt and pt may need rehab placement. Unable to participate in PT/OT due to temporary HD catheter on left-femoral artery. Time Spent With Patient Time with patient: Greater than 35 minutes Subjective Date/time seen: 04/15/24 15:00 Interval history: Chart reviewed since last seen -- last dialysis treatment was on Saturday (04/11) and since that time, urine output seems to be improving in spite of worsening renal function/creatinine; no acute distress noted at the time of my visit; still complaints of weakness + fatigue but no worse than previously; no apparent distress noted. ok to remove dialysis cath per nephrology, Dr Reyna-discussed with SANTI Ross. work with PT/OT Review of Systems Review of Systems: No specific complaints All systems reviewed & are unremarkable except as noted in HPI and below Exam Narrative: HEENT: PERRL, sclerae anicteric, pharyngeal mucosa pink and intact NECK: Supple, No JVD, adenopathy, or thyromegaly CHEST: Clear bilaterally. HEART: NL S1/S2, regular, no murmurs ABDOMEN: BS+, soft, nontender, non-distended. EXTREMITIES: No cyanosis, edema, or clubbing. Dialysis catheter to Left Groin. NEUROLOGIC: Alert, Oriented to person, place, and time. CN intact and symmetric to inspection. MUSCULOSKELETAL: Tone and strength symmetric, but slightly diminished in LE's. PSYCH: Pleasant and co-operative. Objective Data Vital Signs Vital Signs: Vital Signs - 24 hr 04/14/24 16:00 04/14/24 20:00 04/14/24 20:00 Temperature 98.1 F Pulse Rate 87 82 Respiratory Rate 18 Blood Pressure 138/87 Pulse Oximetry 100 Oxygen Delivery Room Air 04/14/24 20:00 04/14/24 21:12 04/15/24 00:00 Temperature 98.4 F Pulse Rate 82 84 68 Respiratory Rate 20 Blood Pressure 127/52 L Pulse Oximetry 96 Oxygen Delivery 04/15/24 00:00 04/15/24 04:00 04/15/24 04:00 Temperature 98.0 F Pulse Rate 67 70 60 Respiratory Rate 20 Blood Pressure 146/68 H Pulse Oximetry 94 Oxygen Delivery 04/15/24 08:00 04/15/24 09:09 04/15/24 09:15 Temperature 97.6 F Pulse Rate 66 84 81 Respiratory Rate 18 Blood Pressure 133/60 Pulse Oximetry 98 Oxygen Delivery 04/15/24 12:00 Temperature 97.8 F Pulse Rate 78 Respiratory Rate 18 Blood Pressure 102/72 Pulse Oximetry 100 Oxygen Delivery Intake/Output Intake/Output: Intake & Output 04/12/24 04/13/24 04/14/24 04/15/24 23:59 23:59 23:59 23:59 Intake Total 1290 868 929 930 Output Total 400 1000 1000 350 Balance 890 -132 -71 580 Meds/Results Medications: Active Medications Generic Name Dose Route Start Last Admin Trade Name Freq PRN Reason Stop Dose Admin Acetaminophen 650 mg 04/04/24 12:10 04/14/24 21:12 Acetaminophen 325 Mg Tablet PO 650 mg Q4H PRN Administration Mild Pain (1-3) or Fever Amlodipine Besylate 2.5 mg 04/12/24 12:45 04/15/24 09:10 Amlodipine Besylate 2.5 Mg Tablet PO 2.5 mg QAM JUAN PABLO Administration Artificial Tears 1 drop 04/04/24 20:15 Artificial Tears Ophth Soln 15 Ml Bottle EACH EYE Q4H PRN Dry Eye(S) Calcitriol 0.25 mcg 04/06/24 09:00 04/15/24 09:10 Calcitriol 0.25 Mcg Capsule BY MOUTH 0.25 mcg [id number] JUAN PABLO Administration Carvedilol 12.5 mg 04/14/24 21:00 04/15/24 09:09 Carvedilol 12.5 Mg Tablet PO 12.5 mg Q12HR JUAN PABLO Administration Dextrose 12.5 gm 04/04/24 21:51 Dextrose 50% 25 Gm/50 Ml Syringe IV PUSH PRN PRN Hypoglycemia Protocol Famotidine 10 mg 04/10/24 09:00 04/15/24 09:10 Famotidine 10 Mg Tablet PO 10 mg DAILY JUAN PABLO Administration Glucagon 1 mg 04/04/24 21:51 Glucagon For Inj 1 Mg Vial IM PRN PRN Hypoglycemia Protocol Glucose 15 gm 04/04/24 21:51 Glucose Oral Gel 15 Gm Of Glucse In 37.5 Gm Tube PO PRN PRN Hypoglycemia Protocol Dextrose 1,000 mls @ 100 mls/hr 04/04/24 21:51 Dextrose 5% 1,000 Ml IVPB PRN PRN Hypoglycemia Protocol Albumin Human 50 mls @ 999 mls/hr 04/09/24 11:16 Albutein IVPB 05/09/24 11:15 Q10M PRN HYPOTENSION Latanoprost 1 drop 04/05/24 09:00 04/15/24 09:10 Latanoprost 0.005% Op Soln 2.5 Ml Btl EACH EYE 1 drop DAILY JUAN PABLO Administration Loratadine 10 mg 04/04/24 20:25 04/15/24 09:10 Loratadine 10 Mg Tablet PO 10 mg QAM PRN Administration allergy symptoms Ondansetron HCl 4 mg 04/04/24 12:10 04/14/24 15:30 Ondansetron Inj 4 Mg/2 Ml Vial IV PUSH 4 mg Q4H PRN Administration Nausea Perflutren Lipid Microsphere 0 ml 04/14/24 00:11 Perflutren Lipid Microspheres 1.5 Ml Vial Diluted To 10 Ml Total Volume IV PUSH 04/17/24 00:11 ONCE PRN adequate visualization Protocol Pravastatin Sodium 40 mg 04/05/24 09:00 04/15/24 09:10 Pravastatin Sodium 20 Mg Tablet PO 40 mg DAILY JUAN PABLO Administration Vitamin D 2,000 units 04/05/24 09:00 04/15/24 09:10 Cholecalciferol 1,000 Units Tablet PO 2,000 units BID JUAN PABLO Administration Radiology Results: ITS Impressions Renal Ultrasound 04/06/24 11:46 Impression: Unremarkable ultrasound of the kidneys. Cholelithiasis and gallbladder sludge incidentally noted. Abdomen/Pelvis CT 04/06/24 19:19 IMPRESSION: Left basilar infiltrate with a small right-sided pleural effusion, an interval change from 04/04/2023. Marked delayed excretion within the bilateral kidneys, consistent with patient's history. Fluid distention of the stomach, extending to the proximal jejunum consistent with patient's history Mural thickening within the rectosigmoid colon with multiple diverticula and trace surrounding inflammatory change, similar in appearance to examination dated 04/04/2024. No drainable fluid collections or gross perforation is noted. Interval development of significant anasarca and retroperitoneal inflammatory change. Brain MRI 04/08/24 17:05 IMPRESSION: 1. Normal aging brain. Chest X-Ray 04/10/24 08:29 Impression: 1: No acute cardiopulmonary disease. Labs Labs: Laboratory Results - last 24 hr 04/14/24 04/14/24 04/15/24 17:41 20:00 00:12 WBC RBC Hgb Hct MCV MCH MCHC RDW Plt Count MPV Immature Gran % (Auto) Neut % (Auto) Lymph % (Auto) [place] % (Auto) Eos % (Auto) Baso % (Auto) Lymph # (Auto) [place] # (Auto) Eos # (Auto) Baso # (Auto) Abs Immat Gran (auto) Absolute Neuts (auto) Absolute Nucleated RBC Nucleated RBC % Sodium Potassium Chloride Carbon Dioxide Anion Gap BUN Creatinine Estim Creat Clear Calc Estimated GFR Glucose POC Capillary Glucose 152 H 135 H 146 H Calcium Phosphorus Magnesium Total Bilirubin AST ALT Alkaline Phosphatase Total Protein Albumin 04/15/24 04/15/24 05:54 06:43 WBC 8.5 RBC 2.40 L Hgb 7.4 L Hct 23.9 L MCV 99.6 MCH 30.8 MCHC 31.0 L RDW 14.6 H Plt Count 255 MPV 10.0 Immature Gran % (Auto) 1.5 H Neut % (Auto) 70.1 Lymph % (Auto) 10.2 L [place] % (Auto) 12.2 H Eos % (Auto) 5.5 H Baso % (Auto) 0.5 Lymph # (Auto) 0.87 L [place] # (Auto) 1.0 H Eos # (Auto) 0.5 H Baso # (Auto) 0.0 Abs Immat Gran (auto) 0.13 H Absolute Neuts (auto) 5.9 Absolute Nucleated RBC 0.000 Nucleated RBC % 0.0 Sodium 132 L Potassium 3.4 Chloride 95 L Carbon Dioxide 32 H Anion Gap 5 BUN 19 H Creatinine 2.09 H Estim Creat Clear Calc Not Reportable Estimated GFR 23 L Glucose 102 POC Capillary Glucose 109 H Calcium 8.3 L Phosphorus 3.8 Magnesium 2.0 Total Bilirubin 0.5 AST 21 ALT 11 Alkaline Phosphatase 50 Total Protein 6.0 L Albumin 3.2 L Quality VTE Prophylaxis VTE prophylaxis: mechanical ordered
[2024-04-15] MEDS: NEOMYCIN/POLYMYXIN/BACITRACIN OINTMENT PACKET 1 PACKET (15:45)
[2024-04-15] MEDS: EPOETIN ALFA-EPBX 20,000 UNITS/ML VIAL 20000 UNITS SUB-Q (17:54)
[2024-04-15] MEDS: ACETAMINOPHEN 325 MG TABLET 650 MG PO (20:27)
[2024-04-15 21:19] LABS: Glucose Point of Care 118 mg/dl (65-105)
[2024-04-16] VITALS (8 sets, daily range): BP systolic 137–152; BP diastolic 50–60; PULSE 68–82; RESP 16–20; TEMP 36.6–36.9; O2SAT 95–100
[2024-04-16 06:42] LABS: Basophils Absolute Auto 0.1 K/mm3 (0.0-0.1); Basophils Percent Auto 0.6 % (0.2-1.2); Eosinophils Absolute Auto 0.6 K/mm3 (0-0.3); Eosinophils Percent Auto 6.1 % (0-4.4); Hematocrit 23.6 % (37.0-47.0); Hemoglobin 7.3 g/dL (12.0-15.0); Immature Granulocyte Absolute 0.08 K/mm3 (0.00-0.031); Immature Granulocyte Percent A 0.9 % (0-0.5); Lymphocytes Absolute Auto 0.95 K/mm3 (0.9-3.2); Lymphocytes Percent Auto 10.5 % (18.3-44.2); Mean Corpuscular HGB Conc 30.9 g/dl (32-36); Mean Corpuscular Hemoglobin 30.7 pg (26-34); Mean Corpuscular Volume 99.2 fl (80-100); Mean Platelet Volume 9.9 fl (7.4-10.4); Monocytes Percent Auto 11.2 % (2.6-8.5); Neutrophils Absolute Auto 6.4 K/mm3 (1.3-6.7); Neutrophils Percent Auto 70.7 % (45.5-73.1); Platelet Count Result 281 k/mm3 (150-375); Red Blood Count 2.38 M/mm3 (4.2-5.4); Red Cell Distribution Width 14.6 % (11.5-14.5); White Blood Count 9.1 K/mm3 (4.5-10.0)
[2024-04-16 06:57] LABS: Alanine Aminotransferase 11 U/L (6-35); Albumin Level 3.2 g/dL (3.5-5.1); Alkaline Phosphatase 50 U/L (38-126); Anion Gap 5 mmol/L (4-12); Aspartate Amino Transferase 20 U/L (14-36); Bilirubin,Total 0.5 mg/dL (0.2-1.3); Blood Urea Nitrogen 16 mg/dL (7-17); Calcium 8.2 mg/dL (8.4-10.2); Carbon Dioxide 32 mmol/L (22-30); Chloride 96 mmol/L (98-107); Estimated Glomerular Filt Rate 28; Glucose 100 mg/dL (65-110); Magnesium 1.8 mg/dL (1.6-2.3); Phosphorus 3.9 mg/dL (2.5-4.5); Potassium 3.3 mmol/L (3.4-5.0); Sodium 133 mmol/L (137-145)
[2024-04-16] MEDS: carvediloL 12.5 MG TABLET PO ×2 (08:33→20:54)
[2024-04-16] MEDS: PRAVASTATIN SODIUM 20 MG TABLET 40 MG PO (08:33)
[2024-04-16] MEDS: LATANOPROST 0.005% OP SOLN 2.5 ML BTL 1 DROP EACH EYE (08:33)
[2024-04-16 08:34] LABS: Glucose Point of Care 78 mg/dl (65-105)
[2024-04-16] MEDS: CHOLECALCIFEROL 1,000 UNITS TABLET 2000 UNITS PO ×2 (08:34→17:48)
[2024-04-16] MEDS: EPOETIN ALFA-EPBX 10,000 UNITS/ML VIAL 10000 UNITS SUB-Q (08:34)
[2024-04-16] MEDS: FAMOTIDINE 10 MG TABLET PO (08:34)
[2024-04-16] MEDS: amLODIPine BESYLATE 2.5 MG TABLET PO (08:34)
--- NOTE | 2024-04-16 11:24 | P.PNIM_ITS ---
Progress Note: A&P Assessment and Plan (1) Acute kidney injury (JAE) with acute tubular necrosis (ATN): Code(s): N17.0 - Acute kidney failure with tubular necrosis Status: Acute Assessment and Plan: Patient received IV contrast on 04/04/24 with already underlying CKD now with worsening renal failure * Baseline Cr around 2.00. * Avoid nephrotoxic drugs. * Avoid NSAIDs. * Routine CMP monitoring GFR. * Monitor electrolytes especially potassium. 04/06/2024 * Worsening Cr 4.40 today could be secondary Anesthesia from EGD * NS 75 D/C D/5 * nephrology consulted for further recommendations and evaluation * bilateral renal ultrasound * Cipro D/c switched to Rocephin 04/07/2024: * Worsening Cr 5.16 * CT showing contrast in Kidneys from 3 days prior and anasarca in the stomach * failed fluid challenge will D/C * no urinary output Pedro placed with only 50 mL * Plan for renal function in the AM if no improvement hoping for renal recovery but may need temporary dialysis with consult to surgery for dialysis access. * Potassium 5.2 dose of Lokelma 04/08: JAE continues to worsen, acidosis continues to worsen, declining mental status with slurred speech and patient stating that she believes she a stroke, MRI ordered, several medications held this afternoon. Nephrology aware as I spoke with Dr. Reyna earlier and RN called to update with worsening clinical picture. 04/09 pt to have Cam placed today to start temp dialysis soon 04/10: pt sp dialysis yesterday and today, unfortunately pt has no fluid off 04/11 * Creatinine 3.19, currently receiving HD Cr 2.37 from 3.19 yesterday. - Seen by nephro and possibly HD tomorrow or day after. - Continue to monitor renal panel closely. - Continue to avoid nephrotoxins. - No plans for HD today per pt. 04/14: Cr continues to improve 2.72>>2.48>>2.06. No further need for HD per nephro. Temporary HD catheter to be removed in AM. Continue to avoid nephrotoxins. Continue meds dosing per renal function. 04/15 cr/BUN 2.12/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 04/12 Hgb 6.7 earlier but repeat 7.2 Continue to monitor Hgb closely. Continue oral PPI. 04/13/ Hgb 7.0 today. - Continue to monitor closely. - Continue oral PPI. 04/14 Appears stable and improving. - 7.0>>8.2 - Continue to monitor closely. - Continue oral PPI. 04/15- 7.4 today- monitor (3) Colitis: Code(s): K52.9 - Noninfective gastroenteritis and colitis, unspecified Status: Acute Assessment and Plan: CT abdomen showing colitis/There is an approximately 11.4 x 24 mm fatty lesion within the hepatic flexure of the colon, most consistent with a lipoma. This type of lesion can erode and cause rectal bleeding. * GI consulted * GI recommended ciprofloxacin and Flagyl * will need follow-up colonoscopy in 6-8 weeks after infectious process resulting unless her hemoglobin continues to trend down * PPI BID * clear liquid diet * WBC 12.2 today * Stool studies pending * bright red blood in stool reported * monitoring HGB 04/06/2024 * patient advanced to low-fiber diet but had N/V change back to clear liquid * F/U ct ABD * Hgb stable 04/08: Tolerated clears but altered LOC and slurred speech today, patient moved to IMU after findings of metabolic acidosis with incomplete compensation. 04/09 : pt remains acidotic awaiting dialysis, creat is 6.9, potassium is 5, ph is low, sodium is 125 04/10: ph is improving, creat is 4, sodium is 125 sp 2 dialysis sessions 04/12: Denies any diarrhea episodes today. Tolerating renal diet well so far. C-diff negative. Continue to monitor for acute symptoms. 04/13/ No diarrhea episodes today. Continues to tolerate renal diet well. C-Diff test negative. Continue to monitor closely for acute symptoms. 04/14/ Appears resolved with pt tolerating regular renal diet well. (4) Chronic kidney disease, stage IV (severe): Code(s): N18.4 - Chronic kidney disease, stage 4 (severe) Status: Acute Assessment and Plan: * Gentle IV hydration. * Baseline around 2.00 currently 3.00 04/05/24 * Avoid nephrotoxic drugs. * Monitor antihypertensive drug therapy. * Avoid NSAIDs. * Routine CMP monitoring GFR. * Monitor electrolytes especially potassium. * Antibiotic doses depending on creatinine clearance. * Pharmacy does medications. * Routine follow-up with Nephrology as an outpatient. 04/06/2024 * Worsening Cr 4.40 today could be secondary Anesthesia from EGD * NS 75 D/C D/ * nephrology consulted for further recommendations and evaluation * bilateral renal ultrasound * Cipro D/c switched to Rocephin 04/08: Tolerated clears but altered LOC and slurred speech today, patient moved to IMU after findings of metabolic acidosis with incomplete compensation. Potentially encephalopathy due to build up of sedating medications. MRI ordered to assess for Stroke. 04/11 * Mental status clinically improving with HD and 04/10 MRI with 'normal aging brain' * 04/12 Appears to be improving clinically and with labs. Nephro following and possible dialysis tomorrow or day after. HD catheter to Left Groin. Continue to avoid nephrotoxins. Meds dosing per renal function. 04/13/ Cr 2.72 today from 2.37 yesterday. Nephro following and no HD today. HD catheter to Left Groin. Continue to avoid nephrotoxins. Meds dosing per renal function. 04/14 Much improving. Cr 2.06 today from 2.37 yesterday. Continue close monitoring with nephro assistance. Continue to avoid nephrotoxins. Meds dosing per renal function. MOnitor I/O, kidney function (5) Chronic anemia: Code(s): D64.9 - Anemia, unspecified Status: Chronic Assessment and Plan: patient's baseline is usually hemoglobin of 10 to 11 likely secondary to her chronic kidney disease but possible active GI bleed currently * Monitor HGB * Transfuse PRBC if Hgb <7.0 * hemodynamically stable 04/08: Hgb 7.9 in AM and 8.9 in afternoon 04/09: hb is 8 today 04/11 hgb 7.5, continue to trend 04/12/ Initial Hgb 6.7 and repeat level 7.2 Continue to monitor Hgb closely. Transfuse for Hgb <7 EGD showing Ferrell's Esophagus with dysplasia, no active bleeding. 04/13/ Hgb 7.0 today. Continue to monitor Hgb closely. Transfuse for Hgb <7 EGD showing Ferrell's Esophagus with dysplasia, no active bleeding. 04/14 Appears stable, 8.2 today >>7.0 yesterday. Continue to monitor closely. Transfuse for Hgb <7 EGD showing Ferrell's Esophagus with dysplasia, no active bleeding. 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 * Continue to monitor H&H closely. (7) Hypertension: Code(s): I10 - Essential (primary) hypertension Status: Acute Assessment and Plan: reviewed and currently well controlled (8) Hypomagnesemia: Code(s): E83.42 - Hypomagnesemia Status: Acute Assessment and Plan: * Mag 1.1 * replenished with 4g * trend and replenish as needed RESOLVED (9) Hyponatremia: Code(s): E87.1 - Hypo-osmolality and hyponatremia Status: Acute Assessment and Plan: * chronically low, likely related to CKD. * Appears to be stabilizing. * no focal neurological deficits noted. * Further mgt per expeller operator. * Currently not on salt tabs. (10) Metabolic acidosis: Code(s): E87.20 - Acidosis, unspecified Status: Acute Assessment and Plan: - Previously on IV and PO sodium bicarbonate. - Currently resolved. (11) Encephalopathy acute: Code(s): G93.40 - Encephalopathy, unspecified Status: Acute Assessment and Plan: 04/08: patient with slurred speech difficulty awakening concerned for CO2 narcosis ABG resulted metabolic acidosis, beta hydroxybutyrate and lactic acid normal metabolic acidosis related to decreased renal function ammonia level negative, MRI brain without contrast also negative 04/09 likely secondary to uremia and severe MA 04/10 pt appears less confused today states she feels very tired 04/11 oriented x3, alert, continue to monitor 04/12: Well oriented with no focal neuro deficits noted. 04/13/ Appears resolved. 04/14: Mentation wnl. unchanged- continue to monitor Plan Awaiting nephro decision on long-term renal mgt and pt may need rehab placement. Unable to participate in PT/OT due to temporary HD catheter on left-femoral artery. Time Spent With Patient Time with patient: 25 - 35 minutes Subjective Date/time seen: 04/15/24 11:24 Interval history: Pt is seen and examined. She is calm and resting with eyes closed. Nephrology is following. improving/stable creatinine and improved urine output noted continue to hold HD -- ok to remove femoral HD catheter per DR Vora Review of Systems Review of Systems: No specific complaints Constitutional: Constitutional: Denies chills ENT: Denies nasal congestion Respiratory: Respiratory: Denies chest congestion Gastrointestinal: Gastrointestinal: Denies abdominal pain Musculoskeletal: Comments: generalized weakness Exam Narrative: HEENT: PERRL, sclerae anicteric, pharyngeal mucosa pink and intact NECK: Supple, No JVD, adenopathy, or thyromegaly CHEST: Clear bilaterally. HEART: NL S1/S2, regular, no murmurs ABDOMEN: BS+, soft, nontender, non-distended. EXTREMITIES: No cyanosis, edema, or clubbing. Dialysis catheter to Left Groin. NEUROLOGIC: Alert, Oriented to person, place, and time. CN intact and symmetric to inspection. MUSCULOSKELETAL: Tone and strength symmetric, but slightly diminished in LE's. PSYCH: Pleasant and co-operative. Const: General: comfortable Objective Data Vital Signs Vital Signs: Vital Signs - 24 hr 04/15/24 12:00 04/15/24 12:00 04/15/24 16:00 Temperature 97.8 F 97.8 F Pulse Rate 78 76 78 Respiratory Rate 18 18 Blood Pressure 102/72 102/72 Pulse Oximetry 100 100 Oxygen Delivery 04/15/24 16:00 04/15/24 20:00 04/15/24 20:00 Temperature 98.0 F Pulse Rate 74 78 Respiratory Rate 18 Blood Pressure 140/57 L Pulse Oximetry 99 Oxygen Delivery Room Air 04/15/24 20:00 04/15/24 20:27 04/16/24 00:00 Temperature 98.5 F Pulse Rate 79 80 72 Respiratory Rate 16 Blood Pressure 146/52 H Pulse Oximetry 95 Oxygen Delivery 04/16/24 00:00 04/16/24 04:00 04/16/24 04:00 Temperature 98.1 F Pulse Rate 73 82 76 Respiratory Rate 20 Blood Pressure 137/50 L Pulse Oximetry 100 Oxygen Delivery 04/16/24 08:02 04/16/24 08:33 Temperature Pulse Rate 70 80 Respiratory Rate Blood Pressure Pulse Oximetry Oxygen Delivery Intake/Output Intake/Output: Intake & Output 04/13/24 04/14/24 04/15/24 04/16/24 23:59 23:59 23:59 23:59 Intake Total 262 785 3306 Output Total 1000 1000 350 Balance -132 -71 820 Meds/Results Medications: Active Medications Generic Name Dose Route Start Last Admin Trade Name Freq PRN Reason Stop Dose Admin Acetaminophen 650 mg 04/04/24 12:10 04/15/24 20:27 Acetaminophen 325 Mg Tablet PO 650 mg Q4H PRN Administration Mild Pain (1-3) or Fever Amlodipine Besylate 2.5 mg 04/12/24 12:45 04/16/24 08:34 Amlodipine Besylate 2.5 Mg Tablet PO 2.5 mg QAM JUAN PABLO Administration Artificial Tears 1 drop 04/04/24 20:15 Artificial Tears Ophth Soln 15 Ml Bottle EACH EYE Q4H PRN Dry Eye(S) Calcitriol 0.25 mcg 04/06/24 09:00 04/15/24 09:10 Calcitriol 0.25 Mcg Capsule BY MOUTH 0.25 mcg [id number] JUAN PABLO Administration Carvedilol 12.5 mg 04/14/24 21:00 04/16/24 08:33 Carvedilol 12.5 Mg Tablet PO 12.5 mg Q12HR JUAN PABLO Administration Dextrose 12.5 gm 04/04/24 21:51 Dextrose 50% 25 Gm/50 Ml Syringe IV PUSH PRN PRN Hypoglycemia Protocol Epoetin Ki-epbx 10,000 units 04/16/24 09:00 04/16/24 08:34 Epoetin Ki-Epbx 10,000 Units/Ml Vial SUB-Q 10,000 units [id number]@09 JUAN PABLO Administration Famotidine 10 mg 04/10/24 09:00 04/16/24 08:34 Famotidine 10 Mg Tablet PO 10 mg DAILY JUAN PABLO Administration Glucagon 1 mg 04/04/24 21:51 Glucagon For Inj 1 Mg Vial IM PRN PRN Hypoglycemia Protocol Glucose 15 gm 04/04/24 21:51 Glucose Oral Gel 15 Gm Of Glucse In 37.5 Gm Tube PO PRN PRN Hypoglycemia Protocol Dextrose 1,000 mls @ 100 mls/hr 04/04/24 21:51 Dextrose 5% 1,000 Ml IVPB PRN PRN Hypoglycemia Protocol Albumin Human 50 mls @ 999 mls/hr 04/09/24 11:16 Albutein IVPB 05/09/24 11:15 Q10M PRN HYPOTENSION Latanoprost 1 drop 04/05/24 09:00 04/15/24 09:10 Latanoprost 0.005% Op Soln 2.5 Ml Btl EACH EYE 1 drop DAILY JUAN PABLO Administration Loratadine 10 mg 04/04/24 20:25 04/15/24 09:10 Loratadine 10 Mg Tablet PO 10 mg QAM PRN Administration allergy symptoms Ondansetron HCl 4 mg 04/04/24 12:10 04/14/24 15:30 Ondansetron Inj 4 Mg/2 Ml Vial IV PUSH 4 mg Q4H PRN Administration Nausea Perflutren Lipid Microsphere 0 ml 04/14/24 00:11 Perflutren Lipid Microspheres 1.5 Ml Vial Diluted To 10 Ml Total Volume IV PUSH 04/17/24 00:11 ONCE PRN adequate visualization Protocol Pravastatin Sodium 40 mg 04/05/24 09:00 04/16/24 08:33 Pravastatin Sodium 20 Mg Tablet PO 40 mg DAILY JUAN PABLO Administration Vitamin D 2,000 units 04/05/24 09:00 04/16/24 08:34 Cholecalciferol 1,000 Units Tablet PO 2,000 units BID JUAN PABLO Administration Radiology Results: ITS Impressions Renal Ultrasound 04/06/24 11:46 Impression: Unremarkable ultrasound of the kidneys. Cholelithiasis and gallbladder sludge incidentally noted. Abdomen/Pelvis CT 04/06/24 19:19 IMPRESSION: Left basilar infiltrate with a small right-sided pleural effusion, an interval change from 04/04/2023. Marked delayed excretion within the bilateral kidneys, consistent with patient's history. Fluid distention of the stomach, extending to the proximal jejunum consistent with patient's history Mural thickening within the rectosigmoid colon with multiple diverticula and trace surrounding inflammatory change, similar in appearance to examination dated 04/04/2024. No drainable fluid collections or gross perforation is noted. Interval development of significant anasarca and retroperitoneal inflammatory change. Brain MRI 04/08/24 17:05 IMPRESSION: 1. Normal aging brain. Chest X-Ray 04/10/24 08:29 Impression: 1: No acute cardiopulmonary disease. Labs Labs: Laboratory Results - last 24 hr 04/15/24 04/16/24 04/16/24 21:00 06:09 08:30 WBC 9.1 RBC 2.38 L Hgb 7.3 L Hct 23.6 L MCV 99.2 MCH 30.7 MCHC 30.9 L RDW 14.6 H Plt Count 281 MPV 9.9 Immature Gran % (Auto) 0.9 H Neut % (Auto) 70.7 Lymph % (Auto) 10.5 L Nicholas % (Auto) 11.2 H Eos % (Auto) 6.1 H Baso % (Auto) 0.6 Lymph # (Auto) 0.95 Nicholas # (Auto) 1.0 H Eos # (Auto) 0.6 H Baso # (Auto) 0.1 Abs Immat Gran (auto) 0.08 H Absolute Neuts (auto) 6.4 Absolute Nucleated RBC 0.000 Nucleated RBC % 0.0 Sodium 133 L Potassium 3.3 L Chloride 96 L Carbon Dioxide 32 H Anion Gap 5 BUN 16 Creatinine 1.78 H Estim Creat Clear Calc Not Reportable Estimated GFR 28 L Glucose 100 POC Capillary Glucose 118 H 78 Calcium 8.2 L Phosphorus 3.9 Magnesium 1.8 Total Bilirubin 0.5 AST 20 ALT 11 Alkaline Phosphatase 50 Total Protein 6.0 L Albumin 3.2 L Quality VTE Prophylaxis VTE prophylaxis: mechanical ordered
--- NOTE | 2024-04-16 11:30 | P.PNIM_ITS ---
Progress Note: A&P Assessment and Plan (1) Acute kidney injury (JAE) with acute tubular necrosis (ATN): Code(s): N17.0 - Acute kidney failure with tubular necrosis Status: Acute Assessment and Plan: Patient received IV contrast on 04/04/24 with already underlying CKD now with worsening renal failure * Baseline Cr around 2.00. * Avoid nephrotoxic drugs. * Avoid NSAIDs. * Routine CMP monitoring GFR. * Monitor electrolytes especially potassium. 04/06/2024 * Worsening Cr 4.40 today could be secondary Anesthesia from EGD * NS 75 D/C D/5 * nephrology consulted for further recommendations and evaluation * bilateral renal ultrasound * Cipro D/c switched to Rocephin 04/07/2024: * Worsening Cr 5.16 * CT showing contrast in Kidneys from 3 days prior and anasarca in the stomach * failed fluid challenge will D/C * no urinary output Pedro placed with only 50 mL * Plan for renal function in the AM if no improvement hoping for renal recovery but may need temporary dialysis with consult to surgery for dialysis access. * Potassium 5.2 dose of Lokelma 04/08: JAE continues to worsen, acidosis continues to worsen, declining mental status with slurred speech and patient stating that she believes she a stroke, MRI ordered, several medications held this afternoon. Nephrology aware as I spoke with Dr. Reyna earlier and RN called to update with worsening clinical picture. 04/09 pt to have Cam placed today to start temp dialysis soon 04/10: pt sp dialysis yesterday and today, unfortunately pt has no fluid off 04/11 * Creatinine 3.19, currently receiving HD Cr 2.37 from 3.19 yesterday. - Seen by nephro and possibly HD tomorrow or day after. - Continue to monitor renal panel closely. - Continue to avoid nephrotoxins. - No plans for HD today per pt. 04/14: Cr continues to improve 2.72>>2.48>>2.06. No further need for HD per nephro. Temporary HD catheter to be removed in AM. Continue to avoid nephrotoxins. Continue meds dosing per renal function. 04/15 cr/BUN 2.12/[address] Reyna- libra to d/c dialyses cath cr/bun 1. 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 04/12 Hgb 6.7 earlier but repeat 7.2 Continue to monitor Hgb closely. Continue oral PPI. 04/13/ Hgb 7.0 today. - Continue to monitor closely. - Continue oral PPI. 04/14 Appears stable and improving. - 7.0>>8.2 - Continue to monitor closely. - Continue oral PPI. 04/15- 7.4 today- monitor (3) Colitis: Code(s): K52.9 - Noninfective gastroenteritis and colitis, unspecified Status: Acute Assessment and Plan: CT abdomen showing colitis/There is an approximately 11.4 x 24 mm fatty lesion within the hepatic flexure of the colon, most consistent with a lipoma. This type of lesion can erode and cause rectal bleeding. * GI consulted * GI recommended ciprofloxacin and Flagyl * will need follow-up colonoscopy in 6-8 weeks after infectious process resulting unless her hemoglobin continues to trend down * PPI BID * clear liquid diet * WBC 12.2 today * Stool studies pending * bright red blood in stool reported * monitoring HGB 04/06/2024 * patient advanced to low-fiber diet but had N/V change back to clear liquid * F/U ct ABD * Hgb stable 04/08: Tolerated clears but altered LOC and slurred speech today, patient moved to IMU after findings of metabolic acidosis with incomplete compensation. 04/09 : pt remains acidotic awaiting dialysis, creat is 6.9, potassium is 5, ph is low, sodium is 125 04/10: ph is improving, creat is 4, sodium is 125 sp 2 dialysis sessions 04/12: Denies any diarrhea episodes today. Tolerating renal diet well so far. C-diff negative. Continue to monitor for acute symptoms. 04/13/ No diarrhea episodes today. Continues to tolerate renal diet well. C-Diff test negative. Continue to monitor closely for acute symptoms. 04/14/ Appears resolved with pt tolerating regular renal diet well. (4) Chronic kidney disease, stage IV (severe): Code(s): N18.4 - Chronic kidney disease, stage 4 (severe) Status: Acute Assessment and Plan: * Gentle IV hydration. * Baseline around 2.00 currently 3.00 04/05/24 * Avoid nephrotoxic drugs. * Monitor antihypertensive drug therapy. * Avoid NSAIDs. * Routine CMP monitoring GFR. * Monitor electrolytes especially potassium. * Antibiotic doses depending on creatinine clearance. * Pharmacy does medications. * Routine follow-up with Nephrology as an outpatient. 04/06/2024 * Worsening Cr 4.40 today could be secondary Anesthesia from EGD * NS 75 D/C D/ * nephrology consulted for further recommendations and evaluation * bilateral renal ultrasound * Cipro D/c switched to Rocephin 04/08: Tolerated clears but altered LOC and slurred speech today, patient moved to IMU after findings of metabolic acidosis with incomplete compensation. Potentially encephalopathy due to build up of sedating medications. MRI ordered to assess for Stroke. 04/11 * Mental status clinically improving with HD and 04/10 MRI with 'normal aging brain' * 04/12 Appears to be improving clinically and with labs. Nephro following and possible dialysis tomorrow or day after. HD catheter to Left Groin. Continue to avoid nephrotoxins. Meds dosing per renal function. 04/13/ Cr 2.72 today from 2.37 yesterday. Nephro following and no HD today. HD catheter to Left Groin. Continue to avoid nephrotoxins. Meds dosing per renal function. 04/14 Much improving. Cr 2.06 today from 2.37 yesterday. Continue close monitoring with nephro assistance. Continue to avoid nephrotoxins. Meds dosing per renal function. MOnitor I/O, kidney function (5) Chronic anemia: Code(s): D64.9 - Anemia, unspecified Status: Chronic Assessment and Plan: patient's baseline is usually hemoglobin of 10 to 11 likely secondary to her chronic kidney disease but possible active GI bleed currently * Monitor HGB * Transfuse PRBC if Hgb <7.0 * hemodynamically stable 04/08: Hgb 7.9 in AM and 8.9 in afternoon 04/09: hb is 8 today 04/11 hgb 7.5, continue to trend 04/12/ Initial Hgb 6.7 and repeat level 7.2 Continue to monitor Hgb closely. Transfuse for Hgb <7 EGD showing Ferrell's Esophagus with dysplasia, no active bleeding. 04/13/ Hgb 7.0 today. Continue to monitor Hgb closely. Transfuse for Hgb <7 EGD showing Ferrell's Esophagus with dysplasia, no active bleeding. 04/14 Appears stable, 8.2 today >>7.0 yesterday. Continue to monitor closely. Transfuse for Hgb <7 EGD showing Ferrell's Esophagus with dysplasia, no active bleeding. 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 * Continue to monitor H&H closely. (7) Hypertension: Code(s): I10 - Essential (primary) hypertension Status: Acute Assessment and Plan: reviewed and currently well controlled (8) Hyponatremia: Code(s): E87.1 - Hypo-osmolality and hyponatremia Status: Acute Assessment and Plan: * chronically low, likely related to CKD. * Appears to be stabilizing. * no focal neurological deficits noted. * Further mgt per integration solution architect. * Currently not on salt tabs. (9) Metabolic acidosis: Code(s): E87.20 - Acidosis, unspecified Status: Acute Assessment and Plan: - Previously on IV and PO sodium bicarbonate. - Currently resolved. (10) Encephalopathy acute: Code(s): G93.40 - Encephalopathy, unspecified Status: Acute Assessment and Plan: 04/08: patient with slurred speech difficulty awakening concerned for CO2 narcosis ABG resulted metabolic acidosis, beta hydroxybutyrate and lactic acid normal metabolic acidosis related to decreased renal function ammonia level negative, MRI brain without contrast also negative 04/09 likely secondary to uremia and severe MA 04/10 pt appears less confused today states she feels very tired 04/11 oriented x3, alert, continue to monitor 04/12: Well oriented with no focal neuro deficits noted. 04/13/ Appears resolved. 04/14: Mentation wnl. unchanged- continue to monitor Plan Awaiting nephro decision on long-term renal mgt and pt may need rehab placement. Unable to participate in PT/OT due to temporary HD catheter on left-femoral artery. Time Spent With Patient Time with patient: 25 - 35 minutes Subjective Date/time seen: 04/16/24 11:30 Interval history: Pt is seen and examined. She is calm and resting with eyes closed. Nephrology is following. PT/OT ordered she is working with PT/OT- gets tired easily but able to get out of bed. Her plan is to return to home as she has a grandson who helps her. Review of Systems Review of Systems: No specific complaints All systems reviewed & are unremarkable except as noted in HPI and below Constitutional: Constitutional: Denies chills ENT: Denies nasal congestion Respiratory: Respiratory: Denies chest congestion Gastrointestinal: Gastrointestinal: Denies abdominal pain Exam Narrative: HEENT: PERRL, sclerae anicteric, pharyngeal mucosa pink and intact NECK: Supple, No JVD, adenopathy, or thyromegaly CHEST: Clear bilaterally. HEART: NL S1/S2, regular, no murmurs ABDOMEN: BS+, soft, nontender, non-distended. EXTREMITIES: No cyanosis, edema, or clubbing. Dialysis catheter to Left Groin. NEUROLOGIC: Alert, Oriented to person, place, and time. CN intact and symmetric to inspection. MUSCULOSKELETAL: Tone and strength symmetric, but slightly diminished in LE's. PSYCH: Pleasant and co-operative. Const: General: comfortable Objective Data Vital Signs Vital Signs: Vital Signs - 24 hr 04/15/24 12:00 04/15/24 12:00 04/15/24 16:00 Temperature 97.8 F 97.8 F Pulse Rate 78 76 78 Respiratory Rate 18 18 Blood Pressure 102/72 102/72 Pulse Oximetry 100 100 Oxygen Delivery 04/15/24 16:00 04/15/24 20:00 04/15/24 20:00 Temperature 98.0 F Pulse Rate 74 78 Respiratory Rate 18 Blood Pressure 140/57 L Pulse Oximetry 99 Oxygen Delivery Room Air 04/15/24 20:00 04/15/24 20:27 04/16/24 00:00 Temperature 98.5 F Pulse Rate 79 80 72 Respiratory Rate 16 Blood Pressure 146/52 H Pulse Oximetry 95 Oxygen Delivery 04/16/24 00:00 04/16/24 04:00 04/16/24 04:00 Temperature 98.1 F Pulse Rate 73 82 76 Respiratory Rate 20 Blood Pressure 137/50 L Pulse Oximetry 100 Oxygen Delivery 04/16/24 08:02 04/16/24 08:33 Temperature Pulse Rate 70 80 Respiratory Rate Blood Pressure Pulse Oximetry Oxygen Delivery Intake/Output Intake/Output: Intake & Output 04/13/24 04/14/24 04/15/24 04/16/24 23:59 23:59 23:59 23:59 Intake Total 668 874 6460 Output Total 1000 1000 350 Balance -132 -71 820 Meds/Results Medications: Active Medications Generic Name Dose Route Start Last Admin Trade Name Freq PRN Reason Stop Dose Admin Acetaminophen 650 mg 04/04/24 12:10 04/15/24 20:27 Acetaminophen 325 Mg Tablet PO 650 mg Q4H PRN Administration Mild Pain (1-3) or Fever Amlodipine Besylate 2.5 mg 04/12/24 12:45 04/16/24 08:34 Amlodipine Besylate 2.5 Mg Tablet PO 2.5 mg QAM JUAN PABLO Administration Artificial Tears 1 drop 04/04/24 20:15 Artificial Tears Ophth Soln 15 Ml Bottle EACH EYE Q4H PRN Dry Eye(S) Calcitriol 0.25 mcg 04/06/24 09:00 04/15/24 09:10 Calcitriol 0.25 Mcg Capsule BY MOUTH 0.25 mcg [id number] JUAN PABLO Administration Carvedilol 12.5 mg 04/14/24 21:00 04/16/24 08:33 Carvedilol 12.5 Mg Tablet PO 12.5 mg Q12HR JUAN PABLO Administration Dextrose 12.5 gm 04/04/24 21:51 Dextrose 50% 25 Gm/50 Ml Syringe IV PUSH PRN PRN Hypoglycemia Protocol Epoetin Ki-epbx 10,000 units 04/16/24 09:00 04/16/24 08:34 Epoetin Ki-Epbx 10,000 Units/Ml Vial SUB-Q 10,000 units [id number]@09 JUAN PABLO Administration Famotidine 10 mg 04/10/24 09:00 04/16/24 08:34 Famotidine 10 Mg Tablet PO 10 mg DAILY JUAN PABLO Administration Glucagon 1 mg 04/04/24 21:51 Glucagon For Inj 1 Mg Vial IM PRN PRN Hypoglycemia Protocol Glucose 15 gm 04/04/24 21:51 Glucose Oral Gel 15 Gm Of Glucse In 37.5 Gm Tube PO PRN PRN Hypoglycemia Protocol Dextrose 1,000 mls @ 100 mls/hr 04/04/24 21:51 Dextrose 5% 1,000 Ml IVPB PRN PRN Hypoglycemia Protocol Albumin Human 50 mls @ 999 mls/hr 04/09/24 11:16 Albutein IVPB 05/09/24 11:15 Q10M PRN HYPOTENSION Latanoprost 1 drop 04/05/24 09:00 04/15/24 09:10 Latanoprost 0.005% Op Soln 2.5 Ml Btl EACH EYE 1 drop DAILY JUAN PABLO Administration Loratadine 10 mg 04/04/24 20:25 04/15/24 09:10 Loratadine 10 Mg Tablet PO 10 mg QAM PRN Administration allergy symptoms Ondansetron HCl 4 mg 04/04/24 12:10 04/14/24 15:30 Ondansetron Inj 4 Mg/2 Ml Vial IV PUSH 4 mg Q4H PRN Administration Nausea Perflutren Lipid Microsphere 0 ml 04/14/24 00:11 Perflutren Lipid Microspheres 1.5 Ml Vial Diluted To 10 Ml Total Volume IV PUSH 04/17/24 00:11 ONCE PRN adequate visualization Protocol Pravastatin Sodium 40 mg 04/05/24 09:00 04/16/24 08:33 Pravastatin Sodium 20 Mg Tablet PO 40 mg DAILY JUAN PABLO Administration Vitamin D 2,000 units 04/05/24 09:00 04/16/24 08:34 Cholecalciferol 1,000 Units Tablet PO 2,000 units BID JUAN PABLO Administration Radiology Results: ITS Impressions Renal Ultrasound 04/06/24 11:46 Impression: Unremarkable ultrasound of the kidneys. Cholelithiasis and gallbladder sludge incidentally noted. Abdomen/Pelvis CT 04/06/24 19:19 IMPRESSION: Left basilar infiltrate with a small right-sided pleural effusion, an interval change from 04/04/2023. Marked delayed excretion within the bilateral kidneys, consistent with patient's history. Fluid distention of the stomach, extending to the proximal jejunum consistent with patient's history Mural thickening within the rectosigmoid colon with multiple diverticula and trace surrounding inflammatory change, similar in appearance to examination date d 04/04/2024. No drainable fluid collections or gross perforation is noted. Interval development of significant anasarca and retroperitoneal inflammatory change. Brain MRI 04/08/24 17:05 IMPRESSION: 1. Normal aging brain. Chest X-Ray 04/10/24 08:29 Impression: 1: No acute cardiopulmonary disease. Labs Labs: Laboratory Results - last 24 hr 04/15/24 04/16/24 04/16/24 21:00 06:09 08:30 WBC 9.1 RBC 2.38 L Hgb 7.3 L Hct 23.6 L MCV 99.2 MCH 30.7 MCHC 30.9 L RDW 14.6 H Plt Count 281 MPV 9.9 Immature Gran % (Auto) 0.9 H Neut % (Auto) 70.7 Lymph % (Auto) 10.5 L [place] % (Auto) 11.2 H Eos % (Auto) 6.1 H Baso % (Auto) 0.6 Lymph # (Auto) 0.95 [place] # (Auto) 1.0 H Eos # (Auto) 0.6 H Baso # (Auto) 0.1 Abs Immat Gran (auto) 0.08 H Absolute Neuts (auto) 6.4 Absolute Nucleated RBC 0.000 Nucleated RBC % 0.0 Sodium 133 L Potassium 3.3 L Chloride 96 L Carbon Dioxide 32 H Anion Gap 5 BUN 16 Creatinine 1.78 H Estim Creat Clear Calc Not Reportable Estimated GFR 28 L Glucose 100 POC Capillary Glucose 118 H 78 Calcium 8.2 L Phosphorus 3.9 Magnesium 1.8 Total Bilirubin 0.5 AST 20 ALT 11 Alkaline Phosphatase 50 Total Protein 6.0 L Albumin 3.2 L Quality VTE Prophylaxis VTE prophylaxis: mechanical ordered
[2024-04-16 12:22] LABS: Glucose Point of Care 126 mg/dl (65-105)
--- NOTE | 2024-04-16 13:26 | P.PNNP_ITS ---
Progress Note: A&P Assessment and Plan (1) JAE (acute kidney injury): Code(s): N17.9 - Acute kidney failure, unspecified Status: Acute Assessment and Plan: * resolving/resolved * suspect multifactorial etiology: * prerenal factors * relative hypotension * contrast exposure (CT with contrast on 04/04/24) * LENNIE-I use prior to admission * relative anemia * other (?) * evaluation to date noted: * urine electrolytes prerenal * urine eosinophils negative * UA without evidence of infection * CPK normal * renal ultrasound okay * repeat CT of A/P still notes contrast present in kidneys * started on ETHERNET NETWORK ARCHITECT/hemodialysis due to anuria and having issues with hyponatremia, worsening metabolic acidosis and possible uremic symptoms... * s/p temporary HD catheter placement on 04/09/23 * HD on 04/09, 04/10, and 04/11 * no further dialytic support needed * follow trend of repeat labs and UOP (2) Chronic kidney disease, stage IV (severe): Code(s): N18.4 - Chronic kidney disease, stage 4 (severe) Status: Acute Assessment and Plan: * baseline creatinine runs ~ 1.8 - 2.3mg/dl * due hypertension, diabetes, and age-related change with contributions with previous use of NSAIDs (3) Hyponatremia: Code(s): E87.1 - Hypo-osmolality and hyponatremia Status: Acute Assessment and Plan: * improving * chronic issues at baseline * likely worsened by JAE/ARF * improved with dialysis and fluid restriction * continue fluid restriction for now * was on salt tabs as an outpatient * follow trend of sodium level (4) GI bleed: Code(s): K92.2 - Gastrointestinal hemorrhage, unspecified Status: Acute Assessment and Plan: * 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 * known history of Barrettt's esophagus * Hgb dropped since admission * GI following: * s/p EGD - no active bleeding with Ferrell's esophagus * on PPI * follow trend of H/H * PRBC transfusion per protocol (5) Colitis: Code(s): K52.9 - Noninfective gastroenteritis and colitis, unspecified Status: Acute Assessment and Plan: * as noted by admission CT of A/P * GI recommendations noted * off antibiotics * advance diet as tolerated (6) Chronic anemia: Code(s): D64.9 - Anemia, unspecified Status: Chronic Assessment and Plan: * probably related to CKD * acute worsening noted since admission * complicated by #5 * on Retacrit SQ 3x/week * follow H/H (7) Hypertension: Code(s): I10 - Essential (primary) hypertension Status: Acute Assessment and Plan: * reasonable control at this time * lisinopril on hold due to #1 * follow trend of hemodynamics (8) Generalized weakness: Code(s): R53.1 - Weakness Status: Acute Assessment and Plan: * due to acute illness in association with anemia * PT/OT as tolerated Will continue to follow. L Subjective Date/time seen: 04/16/24 13:26 Interval history: Follow-up for acute kidney injury/acute renal failure on chronic kidney disease. Sitting up in chair eating lunch at the time of my visit; temporary femoral HD catheter as well as ramos catheter removed yesterday afternoon; renal function/creatinine continues to improve with adequate urine output; no apparent distress noted; anxious to start therapy today. Exam 2 Narrative: General: elderly female in NAD Heart: normal S1 and S2; no rub Lungs: clear to auscultation Abdomen: soft, nondistended, positive bowel sounds Extremities: no cyanosis or clubbing; no edema Skin: warm and dry Objective Data Vital Signs Vital Signs: Vital Signs Temp Pulse Resp BP Pulse Ox O2 Del Method 04/16/24 12:00 98.1 F 76 20 140/60 98 04/16/24 08:33 80 04/16/24 08:02 70 04/16/24 08:00 97.8 F 68 20 144/57 H 98 04/16/24 04:00 76 04/16/24 04:00 98.1 F 82 20 137/50 L 100 04/16/24 00:00 73 04/16/24 00:00 98.5 F 72 16 146/52 H 95 04/15/24 20:27 80 04/15/24 20:00 79 04/15/24 20:00 Room Air 04/15/24 20:00 98.0 F 78 18 140/57 L 99 04/15/24 16:00 74 04/15/24 16:00 97.8 F 78 18 102/72 100 Intake/Output Intake/Output: Intake & Output 04/13/24 04/14/24 04/15/24 04/16/24 23:59 23:59 23:59 23:59 Intake Total 754 070 8679 480 Output Total 1000 1000 350 Balance -132 -71 820 480 Meds/Results Medications: Active Medications Generic Name Dose Route Start Last Admin Trade Name Freq PRN Reason Stop Dose Admin Acetaminophen 650 mg 04/04/24 12:10 04/15/24 20:27 Acetaminophen 325 Mg Tablet PO 650 mg Q4H PRN Administration Mild Pain (1-3) or Fever Amlodipine Besylate 2.5 mg 04/12/24 12:45 04/16/24 08:34 Amlodipine Besylate 2.5 Mg Tablet PO 2.5 mg QAM JUAN PABLO Administration Artificial Tears 1 drop 04/04/24 20:15 Artificial Tears Ophth Soln 15 Ml Bottle EACH EYE Q4H PRN Dry Eye(S) Calcitriol 0.25 mcg 04/06/24 09:00 04/15/24 09:10 Calcitriol 0.25 Mcg Capsule BY MOUTH 0.25 mcg [id number]@0900 JUAN PABLO Administration Carvedilol 12.5 mg 04/14/24 21:00 04/16/24 08:33 Carvedilol 12.5 Mg Tablet PO 12.5 mg Q12HR JUAN PABLO Administration Dextrose 12.5 gm 04/04/24 21:51 Dextrose 50% 25 Gm/50 Ml Syringe IV PUSH PRN PRN Hypoglycemia Protocol Epoetin Ki-epbx 10,000 units 04/16/24 09:00 04/16/24 08:34 Epoetin Ki-Epbx 10,000 Units/Ml Vial SUB-Q 10,000 units [id number]@09 JUAN PABLO Administration Famotidine 10 mg 04/10/24 09:00 04/16/24 08:34 Famotidine 10 Mg Tablet PO 10 mg DAILY JUAN PABLO Administration Glucagon 1 mg 04/04/24 21:51 Glucagon For Inj 1 Mg Vial IM PRN PRN Hypoglycemia Protocol Glucose 15 gm 04/04/24 21:51 Glucose Oral Gel 15 Gm Of Glucse In 37.5 Gm Tube PO PRN PRN Hypoglycemia Protocol Dextrose 1,000 mls @ 100 mls/hr 04/04/24 21:51 Dextrose 5% 1,000 Ml IVPB PRN PRN Hypoglycemia Protocol Albumin Human 50 mls @ 999 mls/hr 04/09/24 11:16 Albutein IVPB 05/09/24 11:15 Q10M PRN HYPOTENSION Latanoprost 1 drop 04/05/24 09:00 04/15/24 09:10 Latanoprost 0.005% Op Soln 2.5 Ml Btl EACH EYE 1 drop DAILY JUAN PABLO Administration Loratadine 10 mg 04/04/24 20:25 04/15/24 09:10 Loratadine 10 Mg Tablet PO 10 mg QAM PRN Administration allergy symptoms Ondansetron HCl 4 mg 04/04/24 12:10 04/14/24 15:30 Ondansetron Inj 4 Mg/2 Ml Vial IV PUSH 4 mg Q4H PRN Administration Nausea Perflutren Lipid Microsphere 0 ml 04/14/24 00:11 Perflutren Lipid Microspheres 1.5 Ml Vial Diluted To 10 Ml Total Volume IV PUSH 04/17/24 00:11 ONCE PRN adequate visualization Protocol Pravastatin Sodium 40 mg 04/05/24 09:00 04/16/24 08:33 Pravastatin Sodium 20 Mg Tablet PO 40 mg DAILY JUAN PABLO Administration Vitamin D 2,000 units 04/05/24 09:00 04/16/24 08:34 Cholecalciferol 1,000 Units Tablet PO 2,000 units BID JUAN PABLO Administration Radiology Results: ITS Impressions Renal Ultrasound 04/06/24 11:46 Impression: Unremarkable ultrasound of the kidneys. Cholelithiasis and gallbladder sludge incidentally noted. Abdomen/Pelvis CT 04/06/24 19:19 IMPRESSION: Left basilar infiltrate with a small right-sided pleural effusion, an interval change from 04/04/2023. Marked delayed excretion within the bilateral kidneys, consistent with patient's history. Fluid distention of the stomach, extending to the proximal jejunum consistent with patient's history Mural thickening within the rectosigmoid colon with multiple diverticula and trace surrounding inflammatory change, similar in appearance to examination dated 04/04/2024. No drainable fluid collections or gross perforation is noted. Interval development of significant anasarca and retroperitoneal inflammatory change. Brain MRI 04/08/24 17:05 IMPRESSION: 1. Normal aging brain. Chest X-Ray 04/10/24 08:29 Impression: 1: No acute cardiopulmonary disease. Labs Labs: Laboratory Tests 04/16/24 06:09 04/16/24 06:09 Calcium 8.2 L Phosphorus 3.9 Magnesium 1.8 Total Bilirubin 0.5 AST 20 ALT 11 Alkaline Phosphatase 50 Total Protein 6.0 L Albumin 3.2 L
[2024-04-16 16:37] LABS: Glucose Point of Care 121 mg/dl (65-105)
[2024-04-16 20:34] LABS: Glucose Point of Care 134 mg/dl (65-105)
[2024-04-16] MEDS: LOPERAMIDE HCL 2 MG CAPSULE PO (20:54)
[2024-04-16] MEDS: ACETAMINOPHEN 325 MG TABLET 650 MG PO (21:01)
[2024-04-16] MEDS: ONDANSETRON INJ 4 MG/2 ML VIAL IV PUSH (21:01)
[2024-04-17] VITALS (12 sets, daily range): BP systolic 127–176; BP diastolic 45–83; PULSE 68–86; RESP 12–20; TEMP 36.3–37.1; O2SAT 94–100
[2024-04-17 06:51] LABS: Basophils Percent Auto 0.5 % (0.2-1.2); Eosinophils Absolute Auto 0.4 K/mm3 (0-0.3); Eosinophils Percent Auto 5.5 % (0-4.4); Hemoglobin 7.1 g/dL (12.0-15.0); Immature Granulocyte Absolute 0.06 K/mm3 (0.00-0.031); Immature Granulocyte Percent A 0.8 % (0-0.5); Lymphocytes Absolute Auto 1.07 K/mm3 (0.9-3.2); Lymphocytes Percent Auto 14.3 % (18.3-44.2); Mean Corpuscular HGB Conc 30.9 g/dl (32-36); Mean Corpuscular Hemoglobin 30.7 pg (26-34); Mean Corpuscular Volume 99.6 fl (80-100); Mean Platelet Volume 9.9 fl (7.4-10.4); Monocytes Absolute Auto 0.9 K/mm3 (0.1-0.6); Monocytes Percent Auto 12.1 % (2.6-8.5); Neutrophils Percent Auto 66.8 % (45.5-73.1); Platelet Count Result 268 k/mm3 (150-375); Red Blood Count 2.31 M/mm3 (4.2-5.4); Red Cell Distribution Width 14.6 % (11.5-14.5); White Blood Count 7.5 K/mm3 (4.5-10.0)
[2024-04-17 07:05] LABS: Alanine Aminotransferase 12 U/L (6-35); Albumin Level 2.9 g/dL (3.5-5.1); Alkaline Phosphatase 45 U/L (38-126); Anion Gap 3 mmol/L (4-12); Aspartate Amino Transferase 21 U/L (14-36); Bilirubin,Total 0.5 mg/dL (0.2-1.3); Blood Urea Nitrogen 15 mg/dL (7-17); Calcium 7.9 mg/dL (8.4-10.2); Carbon Dioxide 32 mmol/L (22-30); Chloride 98 mmol/L (98-107); Estimated Glomerular Filt Rate 37; Glucose 110 mg/dL (65-110); Magnesium 1.6 mg/dL (1.6-2.3); Phosphorus 3.4 mg/dL (2.5-4.5); Potassium 3.5 mmol/L (3.4-5.0); Sodium 133 mmol/L (137-145)
[2024-04-17 08:04] LABS: Glucose Point of Care 103 mg/dl (65-105)
[2024-04-17] MEDS: amLODIPine BESYLATE 2.5 MG TABLET PO (09:07)
[2024-04-17] MEDS: CHOLECALCIFEROL 1,000 UNITS TABLET 2000 UNITS PO ×2 (09:07→17:35)
[2024-04-17] MEDS: carvediloL 12.5 MG TABLET PO ×2 (09:08→20:30)
[2024-04-17] MEDS: FAMOTIDINE 10 MG TABLET PO (09:08)
[2024-04-17] MEDS: PRAVASTATIN SODIUM 20 MG TABLET 40 MG PO (09:09)
[2024-04-17] MEDS: LATANOPROST 0.005% OP SOLN 2.5 ML BTL 1 DROP EACH EYE (09:11)
--- NOTE | 2024-04-17 09:59 | P.PNIM_ITS ---
Progress Note: A&P Assessment and Plan (1) Acute kidney injury (JAE) with acute tubular necrosis (ATN): Code(s): N17.0 - Acute kidney failure with tubular necrosis Status: Acute Assessment and Plan: Patient received IV contrast on 04/04/24 with already underlying CKD now with worsening renal failure * Baseline Cr around 2.00. * Avoid nephrotoxic drugs. * Avoid NSAIDs. * Routine CMP monitoring GFR. * Monitor electrolytes especially potassium. 04/06/2024 * Worsening Cr 4.40 today could be secondary Anesthesia from EGD * NS 75 D/C D/5 * nephrology consulted for further recommendations and evaluation * bilateral renal ultrasound * Cipro D/c switched to Rocephin 04/07/2024: * Worsening Cr 5.16 * CT showing contrast in Kidneys from 3 days prior and anasarca in the stomach * failed fluid challenge will D/C * no urinary output Pedro placed with only 50 mL * Plan for renal function in the AM if no improvement hoping for renal recovery but may need temporary dialysis with consult to surgery for dialysis access. * Potassium 5.2 dose of Lokelma 04/08: JAE continues to worsen, acidosis continues to worsen, declining mental status with slurred speech and patient stating that she believes she a stroke, MRI ordered, several medications held this afternoon. Nephrology aware as I spoke with Dr. Reyna earlier and RN called to update with worsening clinical picture. 04/09 pt to have Cam placed today to start temp dialysis soon 04/10: pt sp dialysis yesterday and today, unfortunately pt has no fluid off 04/11 * Creatinine 3.19, currently receiving HD Cr 2.37 from 3.19 yesterday. - Seen by nephro and possibly HD tomorrow or day after. - Continue to monitor renal panel closely. - Continue to avoid nephrotoxins. - No plans for HD today per pt. 04/14: Cr continues to improve 2.72>>2.48>>2.06. No further need for HD per nephro. Temporary HD catheter to be removed in AM. Continue to avoid nephrotoxins. Continue meds dosing per renal function. 04/15 cr/BUN 2.12/[address] Reyna- ok to d/c dialyses cath cr/bun 1. 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 04/12 Hgb 6.7 earlier but repeat 7.2 Continue to monitor Hgb closely. Continue oral PPI. 04/13/ Hgb 7.0 today. - Continue to monitor closely. - Continue oral PPI. 04/14 Appears stable and improving. - 7.0>>8.2 - Continue to monitor closely. - Continue oral PPI. 04/15- 7.4 today- monitor hg/hct 7.1/23.0- continue protonix BID (she normally takes it daily at home) (3) Colitis: Code(s): K52.9 - Noninfective gastroenteritis and colitis, unspecified Status: Acute Assessment and Plan: CT abdomen showing colitis/There is an approximately 11.4 x 24 mm fatty lesion within the hepatic flexure of the colon, most consistent with a lipoma. This type of lesion can erode and cause rectal bleeding. * GI consulted * GI recommended ciprofloxacin and Flagyl * will need follow-up colonoscopy in 6-8 weeks after infectious process resulting unless her hemoglobin continues to trend down * PPI BID * clear liquid diet * WBC 12.2 today * Stool studies pending * bright red blood in stool reported * monitoring HGB 04/06/2024 * patient advanced to low-fiber diet but had N/V change back to clear liquid * F/U ct ABD * Hgb stable 04/08: Tolerated clears but altered LOC and slurred speech today, patient moved to IMU after findings of metabolic acidosis with incomplete compensation. 04/09 : pt remains acidotic awaiting dialysis, creat is 6.9, potassium is 5, ph is low, sodium is 125 04/10: ph is improving, creat is 4, sodium is 125 sp 2 dialysis sessions 04/12: Denies any diarrhea episodes today. Tolerating renal diet well so far. C-diff negative. Continue to monitor for acute symptoms. 04/13/ No diarrhea episodes today. Continues to tolerate renal diet well. C-Diff test negative. Continue to monitor closely for acute symptoms. 04/14/ Appears resolved with pt tolerating regular renal diet well. (4) Chronic kidney disease, stage IV (severe): Code(s): N18.4 - Chronic kidney disease, stage 4 (severe) Status: Acute Assessment and Plan: * Gentle IV hydration. * Baseline around 2.00 currently 3.00 04/05/24 * Avoid nephrotoxic drugs. * Monitor antihypertensive drug therapy. * Avoid NSAIDs. * Routine CMP monitoring GFR. * Monitor electrolytes especially potassium. * Antibiotic doses depending on creatinine clearance. * Pharmacy does medications. * Routine follow-up with Nephrology as an outpatient. 04/06/2024 * Worsening Cr 4.40 today could be secondary Anesthesia from EGD * NS 75 D/C D/5 * nephrology consulted for further recommendations and evaluation * bilateral renal ultrasound * Cipro D/c switched to Rocephin 1/8: Tolerated clears but altered LOC and slurred speech today, patient moved to IMU after findings of metabolic acidosis with incomplete compensation. Potentially encephalopathy due to build up of sedating medications. MRI ordered to assess for Stroke. 04/11 * Mental status clinically improving with HD and 04/10 MRI with 'normal aging brain' 04/12 Appears to be improving clinically and with labs. Nephro following and possible dialysis tomorrow or day after. HD catheter to Left Groin. Continue to avoid nephrotoxins. Meds dosing per renal function. 04/13/ Cr 2.72 today from 2.37 yesterday. Nephro following and no HD today. HD catheter to Left Groin. Continue to avoid nephrotoxins. Meds dosing per renal function. 04/14 Much improving. Cr 2.06 today from 2.37 yesterday. Continue close monitoring with nephro assistance. Continue to avoid nephrotoxins. Meds dosing per renal function. MOnitor I/O, kidney function (5) Chronic anemia: Code(s): D64.9 - Anemia, unspecified Status: Chronic Assessment and Plan: patient's baseline is usually hemoglobin of 10 to 11 likely secondary to her chronic kidney disease but possible active GI bleed currently * Monitor HGB * Transfuse PRBC if Hgb <7.0 * hemodynamically stable 04/08: Hgb 7.9 in AM and 8.9 in afternoon 04/09: hb is 8 today 04/11 hgb 7.5, continue to trend 04/12/ Initial Hgb 6.7 and repeat level 7.2 Continue to monitor Hgb closely. Transfuse for Hgb <7 EGD showing Ferrell's Esophagus with dysplasia, no active bleeding. 04/13/ Hgb 7.0 today. Continue to monitor Hgb closely. Transfuse for Hgb <7 EGD showing Ferrell's Esophagus with dysplasia, no active bleeding. 04/14 Appears stable, 8.2 today >>7.0 yesterday. Continue to monitor closely. Transfuse for Hgb <7 EGD showing Ferrell's Esophagus with dysplasia, no active bleeding. 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 * Continue to monitor H&H closely. (7) Hypertension: Code(s): I10 - Essential (primary) hypertension Status: Acute Assessment and Plan: reviewed and currently well controlled (8) Hyponatremia: Code(s): E87.1 - Hypo-osmolality and hyponatremia Status: Acute Assessment and Plan: * chronically low, likely related to CKD. * Appears to be stabilizing. * no focal neurological deficits noted. * Further mgt per cd storage and materials make up helper. * Currently not on salt tabs. (9) Metabolic acidosis: Code(s): E87.20 - Acidosis, unspecified Status: Acute Assessment and Plan: - Previously on IV and PO sodium bicarbonate. - Currently resolved. (10) Encephalopathy acute: Code(s): G93.40 - Encephalopathy, unspecified Status: Acute Assessment and Plan: 04/08: patient with slurred speech difficulty awakening concerned for CO2 narcosis ABG resulted metabolic acidosis, beta hydroxybutyrate and lactic acid normal metabolic acidosis related to decreased renal function ammonia level negative, MRI brain without contrast also negative 04/09 likely secondary to uremia and severe MA 04/10 pt appears less confused today states she feels very tired 04/11 oriented x3, alert, continue to monitor 04/12: Well oriented with no focal neuro deficits noted. 04/13/ Appears resolved. 04/14: Mentation wnl. unchanged- continue to monitor Plan HD catheter to left-femoral artery was removed on 04/16. Noted some erythema. NO hematoma, no bruising. Area is cleaned and dry dressing applied. will monitor. Anticipate discharge in the next few days if remains stable. Time Spent With Patient Time with patient: 25 - 35 minutes Subjective Date/time seen: 04/17/24 09:59 Interval history: Pt is seen and examined. She is calm and resting with eyes closed. Nephrology is following. PT/OT ordered she is working with PT/OT. Her plan is to return to home as she has a grandson who helps her. Redness noted to lt groin. Few diarrhea stool episodes. C diff negative Review of Systems Review of Systems: No specific complaints All systems reviewed & are unremarkable except as noted in HPI and below Constitutional: Constitutional: Denies chills ENT: Denies nasal congestion Respiratory: Respiratory: Denies chest congestion Gastrointestinal: Gastrointestinal: Denies abdominal pain Exam Narrative: HEENT: PERRL, sclerae anicteric, pharyngeal mucosa pink and intact NECK: Supple, No JVD, adenopathy, or thyromegaly CHEST: Clear bilaterally. HEART: NL S1/S2, regular, no murmurs ABDOMEN: BS+, soft, nontender, non-distended. EXTREMITIES: No cyanosis, edema, or clubbing. Dialysis catheter to Left Groin. NEUROLOGIC: Alert, Oriented to person, place, and time. CN intact and symmetric to inspection. MUSCULOSKELETAL: Tone and strength symmetric, but slightly diminished in LE's. PSYCH: Pleasant and co-operative. Const: General: comfortable Objective Data Vital Signs Vital Signs: Vital Signs - 24 hr 04/16/24 12:00 04/16/24 12:00 04/16/24 16:00 Temperature 98.1 F Pulse Rate 76 74 82 Respiratory Rate 20 Blood Pressure 140/60 Pulse Oximetry 98 Oxygen Delivery 04/16/24 16:00 04/16/24 20:00 04/16/24 20:00 Temperature 97.9 F 97.8 F Pulse Rate 68 77 Respiratory Rate 20 16 Blood Pressure 144/57 H 152/60 H Pulse Oximetry 98 97 Oxygen Delivery Room Air 04/16/24 20:00 04/17/24 00:00 04/17/24 00:00 Temperature 98.1 F Pulse Rate 76 83 76 Respiratory Rate 20 Blood Pressure 141/83 H Pulse Oximetry 98 Oxygen Delivery 04/17/24 04:00 04/17/24 04:00 04/17/24 05:42 Temperature 97.8 F Pulse Rate 72 72 72 Respiratory Rate 20 Blood Pressure 149/53 H Pulse Oximetry 95 Oxygen Delivery 04/17/24 08:00 04/17/24 08:26 04/17/24 08:27 Temperature 97.3 F L 97.3 F L 97.3 F L Pulse Rate 68 80 82 Respiratory Rate 16 16 16 Blood Pressure 169/56 H 176/54 H 171/61 H Pulse Oximetry 98 100 100 Oxygen Delivery 04/17/24 09:08 Temperature Pulse Rate 86 Respiratory Rate Blood Pressure Pulse Oximetry Oxygen Delivery Intake/Output Intake/Output: Intake & Output 04/14/24 04/15/24 04/16/24 04/17/24 23:59 23:59 23:59 23:59 Intake Total 929 1170 1220 200 Output Total 1000 350 450 Balance -71 820 770 200 Meds/Results Medications: Active Medications Generic Name Dose Route Start Last Admin Trade Name Freq PRN Reason Stop Dose Admin Acetaminophen 650 mg 04/04/24 12:10 04/16/24 21:01 Acetaminophen 325 Mg Tablet PO 650 mg Q4H PRN Administration Mild Pain (1-3) or Fever Amlodipine Besylate 2.5 mg 04/12/24 12:45 04/17/24 09:07 Amlodipine Besylate 2.5 Mg Tablet PO 2.5 mg QAM JUAN PABLO Administration Artificial Tears 1 drop 04/04/24 20:15 Artificial Tears Ophth Soln 15 Ml Bottle EACH EYE Q4H PRN Dry Eye(S) Calcitriol 0.25 mcg 04/06/24 09:00 04/15/24 09:10 Calcitriol 0.25 Mcg Capsule BY MOUTH 0.25 mcg [id number] JUAN PABLO Administration Carvedilol 12.5 mg 04/14/24 21:00 04/17/24 09:08 Carvedilol 12.5 Mg Tablet PO 12.5 mg Q12HR JUAN PABLO Administration Dextrose 12.5 gm 04/04/24 21:51 Dextrose 50% 25 Gm/50 Ml Syringe IV PUSH PRN PRN Hypoglycemia Protocol Epoetin Ki-epbx 10,000 units 04/16/24 09:00 04/16/24 08:34 Epoetin Ki-Epbx 10,000 Units/Ml Vial SUB-Q 10,000 units [id number]@09 JUAN PABLO Administration Famotidine 10 mg 04/10/24 09:00 04/17/24 09:08 Famotidine 10 Mg Tablet PO 10 mg DAILY JUAN PABLO Administration Glucagon 1 mg 04/04/24 21:51 Glucagon For Inj 1 Mg Vial IM PRN PRN Hypoglycemia Protocol Glucose 15 gm 04/04/24 21:51 Glucose Oral Gel 15 Gm Of Glucse In 37.5 Gm Tube PO PRN PRN Hypoglycemia Protocol Dextrose 1,000 mls @ 100 mls/hr 04/04/24 21:51 Dextrose 5% 1,000 Ml IVPB PRN PRN Hypoglycemia Protocol Albumin Human 50 mls @ 999 mls/hr 04/09/24 11:16 Albutein IVPB 05/09/24 11:15 Q10M PRN HYPOTENSION Latanoprost 1 drop 04/05/24 09:00 04/17/24 09:11 Latanoprost 0.005% Op Soln 2.5 Ml Btl EACH EYE 1 drop DAILY JUAN PABLO Administration Loratadine 10 mg 04/04/24 20:25 04/15/24 09:10 Loratadine 10 Mg Tablet PO 10 mg QAM PRN Administration allergy symptoms Ondansetron HCl 4 mg 04/04/24 12:10 04/16/24 21:01 Ondansetron Inj 4 Mg/2 Ml Vial IV PUSH 4 mg Q4H PRN Administration Nausea Pravastatin Sodium 40 mg 04/05/24 09:00 04/17/24 09:09 Pravastatin Sodium 20 Mg Tablet PO 40 mg DAILY JUAN PABLO Administration Vitamin D 2,000 units 04/05/24 09:00 04/17/24 09:07 Cholecalciferol 1,000 Units Tablet PO 2,000 units BID JUAN PABLO Administration Radiology Results: ITS Impressions Renal Ultrasound 04/06/24 11:46 Impression: Unremarkable ultrasound of the kidneys. Cholelithiasis and gallbladder sludge incidentally noted. Abdomen/Pelvis CT 04/06/24 19:19 IMPRESSION: Left basilar infiltrate with a small right-sided pleural effusion, an interval change from 04/04/2023. Marked delayed excretion within the bilateral kidneys, consistent with patient's history. Fluid distention of the stomach, extending to the proximal jejunum consistent with patient's history Mural thickening within the rectosigmoid colon with multiple diverticula and trace surrounding inflammatory change, similar in appearance to examination d ated 04/04/2024. No drainable fluid collections or gross perforation is noted. Interval development of significant anasarca and retroperitoneal inflammatory change. Brain MRI 04/08/24 17:05 IMPRESSION: 1. Normal aging brain. Chest X-Ray 04/10/24 08:29 Impression: 1: No acute cardiopulmonary disease. Labs Labs: Laboratory Results - last 24 hr 04/13/24 04/16/24 04/16/24 12:40 12:16 16:33 WBC RBC Hgb Hct MCV MCH MCHC RDW Plt Count MPV Immature Gran % (Auto) Neut % (Auto) Lymph % (Auto) [place] % (Auto) Eos % (Auto) Baso % (Auto) Lymph # (Auto) [place] # (Auto) Eos # (Auto) Baso # (Auto) Abs Immat Gran (auto) Absolute Neuts (auto) Absolute Nucleated RBC Nucleated RBC % Sodium Potassium Chloride Carbon Dioxide Anion Gap BUN Creatinine Estim Creat Clear Calc Estimated GFR Glucose POC Capillary Glucose 126 H 121 H Calcium Phosphorus Magnesium Total Bilirubin AST ALT Alkaline Phosphatase Total Protein Albumin Stool Rotavirus (PCR) TNP Stool Yersinia (PCR) TNP Stool Vibrio (PCR) TNP Stl Norovirus GI/GII PCR TNP Campylobacter Group (PCR) TNP Salmonella (PCR) TNP Shiga Toxin 1 TNP Shiga Toxin 2 TNP Shigella species (PCR) TNP 04/16/24 04/17/24 04/17/24 20:20 06:36 07:30 WBC 7.5 RBC 2.31 L Hgb 7.1 L Hct 23.0 L MCV 99.6 MCH 30.7 MCHC 30.9 L RDW 14.6 H Plt Count 268 MPV 9.9 Immature Gran % (Auto) 0.8 H Neut % (Auto) 66.8 Lymph % (Auto) 14.3 L [place] % (Auto) 12.1 H Eos % (Auto) 5.5 H Baso % (Auto) 0.5 Lymph # (Auto) 1.07 [place] # (Auto) 0.9 H Eos # (Auto) 0.4 H Baso # (Auto) 0.0 Abs Immat Gran (auto) 0.06 H Absolute Neuts (auto) 5.0 Absolute Nucleated RBC 0.000 Nucleated RBC % 0.0 Sodium 133 L Potassium 3.5 Chloride 98 Carbon Dioxide 32 H Anion Gap 3 L BUN 15 Creatinine 1.38 H Estim Creat Clear Calc Not Reportable Estimated GFR 37 L Glucose 110 POC Capillary Glucose 134 H 103 Calcium 7.9 L Phosphorus 3.4 Magnesium 1.6 Total Bilirubin 0.5 AST 21 ALT 12 Alkaline Phosphatase 45 Total Protein 5.0 L Albumin 2.9 L Stool Rotavirus (PCR) Stool Yersinia (PCR) Stool Vibrio (PCR) Stl Norovirus GI/GII PCR Campylobacter Group (PCR) Salmonella (PCR) Shiga Toxin 1 Shiga Toxin 2 Shigella species (PCR) Quality VTE Prophylaxis VTE prophylaxis: mechanical ordered
--- NOTE | 2024-04-17 11:05 | P.PNNP_ITS ---
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 * s/p temporary HD catheter placement on 04/09/23 * HD on 04/09, 04/10, and 04/11 * no further dialytic support needed * Creatinine still improving * Volume status looks okay * Electrolytes good * Creatinine down to 1.38. This is below her baseline, most likely due to reduced muscle mass (2) Chronic kidney disease, stage IV (severe): Code(s): N18.4 - Chronic kidney disease, stage 4 (severe) Status: Acute Assessment and Plan: * baseline creatinine runs ~ 1.8 - 2.3mg/dl * due hypertension, diabetes, and age-related change with contributions with previous use of NSAIDs (3) Hyponatremia: Code(s): E87.1 - Hypo-osmolality and hyponatremia Status: Acute Assessment and Plan: * Hyponatremia * chronic issues at baseline * likely worsened by JAE/ARF * improved with dialysis and fluid restriction * continue fluid restriction for now * was on salt tabs as an outpatient * Sodium still doing well at 133. 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 * GI following: * s/p EGD - no active bleeding with Ferrell's esophagus * on PPI * Hemoglobin down to 7.1 * Getting Epogen * Will check a reticulocyte count and iron levels * PRBC transfusion per protocol (5) Colitis: Code(s): K52.9 - Noninfective gastroenteritis and colitis, unspecified Status: Acute Assessment and Plan: * as noted by admission CT of A/P * GI recommendations noted * off antibiotics * advance diet as tolerated (6) Chronic anemia: Code(s): D64.9 - Anemia, unspecified Status: Chronic Assessment and Plan: * probably related to CKD * acute worsening noted since admission * complicated by #5 * on Retacrit SQ 3x/week * Checking iron, B12, folate, retic count. (7) Hypertension: Code(s): I10 - Essential (primary) hypertension Status: Acute Assessment and Plan: * Systolic 140-170. * Increase amlodipine to 5 * lisinopril on hold due to #1 * follow trend of hemodynamics (8) Generalized weakness: Code(s): R53.1 - Weakness Status: Acute Assessment and Plan: * due to acute illness in association with anemia * PT/OT as tolerated Subjective Date/time seen: 04/17/24 11:05 Interval history: Patient is up in a chair Feels good today. Just started some physical therapy. Having some diarrhea. Exam Narrative: General: elderly female in NAD Heart: normal S1 and S2; no rub or gallop Lungs: clear Abdomen: soft, nondistended, positive bowel sounds Extremities:no edema Skin: warm and dry without rash Objective Data Vital Signs Vital Signs: Vital Signs - 24 hr 04/16/24 12:00 04/16/24 12:00 04/16/24 16:00 Temperature 98.1 F Pulse Rate 76 74 82 Respiratory Rate 20 Blood Pressure 140/60 Pulse Oximetry 98 Oxygen Delivery 04/16/24 16:00 04/16/24 20:00 04/16/24 20:00 Temperature 97.9 F 97.8 F Pulse Rate 68 77 Respiratory Rate 20 16 Blood Pressure 144/57 H 152/60 H Pulse Oximetry 98 97 Oxygen Delivery Room Air 04/16/24 20:00 04/17/24 00:00 04/17/24 00:00 Temperature 98.1 F Pulse Rate 76 83 76 Respiratory Rate 20 Blood Pressure 141/83 H Pulse Oximetry 98 Oxygen Delivery 04/17/24 04:00 04/17/24 04:00 04/17/24 05:42 Temperature 97.8 F Pulse Rate 72 72 72 Respiratory Rate 20 Blood Pressure 149/53 H Pulse Oximetry 95 Oxygen Delivery 04/17/24 08:00 04/17/24 08:26 04/17/24 08:27 Temperature 97.3 F L 97.3 F L 97.3 F L Pulse Rate 68 80 82 Respiratory Rate 16 16 16 Blood Pressure 169/56 H 176/54 H 171/61 H Pulse Oximetry 98 100 100 Oxygen Delivery 04/17/24 09:08 Temperature Pulse Rate 86 Respiratory Rate Blood Pressure Pulse Oximetry Oxygen Delivery Intake/Output Intake/Output: Intake & Output 04/14/24 04/15/24 04/16/24 04/17/24 23:59 23:59 23:59 23:59 Intake Total 929 1170 1220 200 Output Total 1000 350 450 Balance -71 820 770 200 Meds/Results Medications: Active Medications Generic Name Dose Route Start Last Admin Trade Name Freq PRN Reason Stop Dose Admin Acetaminophen 650 mg 04/04/24 12:10 04/16/24 21:01 Acetaminophen 325 Mg Tablet PO 650 mg Q4H PRN Administration Mild Pain (1-3) or Fever Amlodipine Besylate 2.5 mg 04/12/24 12:45 04/17/24 09:07 Amlodipine Besylate 2.5 Mg Tablet PO 2.5 mg QAM JUAN PABLO Administration Artificial Tears 1 drop 04/04/24 20:15 Artificial Tears Ophth Soln 15 Ml Bottle EACH EYE Q4H PRN Dry Eye(S) Calcitriol 0.25 mcg 04/06/24 09:00 04/15/24 09:10 Calcitriol 0.25 Mcg Capsule BY MOUTH 0.25 mcg [id number] JUAN PABLO Administration Carvedilol 12.5 mg 04/14/24 21:00 04/17/24 09:08 Carvedilol 12.5 Mg Tablet PO 12.5 mg Q12HR JUAN PABLO Administration Dextrose 12.5 gm 04/04/24 21:51 Dextrose 50% 25 Gm/50 Ml Syringe IV PUSH PRN PRN Hypoglycemia Protocol Epoetin Ki-epbx 10,000 units 04/16/24 09:00 04/16/24 08:34 Epoetin Ki-Epbx 10,000 Units/Ml Vial SUB-Q 10,000 units [id number] JUAN PABLO Administration Famotidine 10 mg 04/10/24 09:00 04/17/24 09:08 Famotidine 10 Mg Tablet PO 10 mg DAILY JUAN PABLO Administration Glucagon 1 mg 04/04/24 21:51 Glucagon For Inj 1 Mg Vial IM PRN PRN Hypoglycemia Protocol Glucose 15 gm 04/04/24 21:51 Glucose Oral Gel 15 Gm Of Glucse In 37.5 Gm Tube PO PRN PRN Hypoglycemia Protocol Dextrose 1,000 mls @ 100 mls/hr 04/04/24 21:51 Dextrose 5% 1,000 Ml IVPB PRN PRN Hypoglycemia Protocol Albumin Human 50 mls @ 999 mls/hr 04/09/24 11:16 Albutein IVPB 05/09/24 11:15 Q10M PRN HYPOTENSION Latanoprost 1 drop 04/05/24 09:00 04/17/24 09:11 Latanoprost 0.005% Op Soln 2.5 Ml Btl EACH EYE 1 drop DAILY JUAN PABLO Administration Lisinopril 20 mg 04/17/24 10:20 Lisinopril 20 Mg Tablet PO DAILY [facility] Loratadine 10 mg 04/04/24 20:25 04/15/24 09:10 Loratadine 10 Mg Tablet PO 10 mg QAM PRN Administration allergy symptoms Ondansetron HCl 4 mg 04/04/24 12:10 04/16/24 21:01 Ondansetron Inj 4 Mg/2 Ml Vial IV PUSH 4 mg Q4H PRN Administration Nausea Pantoprazole Sodium 40 mg 04/18/24 10:20 Pantoprazole 40 Mg Tablet PO QAM [facility] Pravastatin Sodium 40 mg 04/05/24 09:00 04/17/24 09:09 Pravastatin Sodium 20 Mg Tablet PO 40 mg DAILY [facility] Administration Vitamin D 2,000 units 04/05/24 09:00 04/17/24 09:07 Cholecalciferol 1,000 Units Tablet PO 2,000 units BID JUAN PABLO Administration Radiology Results: ITS Impressions Renal Ultrasound 04/06/24 11:46 Impression: Unremarkable ultrasound of the kidneys. Cholelithiasis and gallbladder sludge incidentally noted. Abdomen/Pelvis CT 04/06/24 19:19 IMPRESSION: Left basilar infiltrate with a small right-sided pleural effusion, an interval change from 04/04/2023. Marked delayed excretion within the bilateral kidneys, consistent with patient's history. Fluid distention of the stomach, extending to the proximal jejunum consistent wi th patient's history Mural thickening within the rectosigmoid colon with multiple diverticula and trace surrounding inflammatory change, similar in appearance to examination dated 04/04/2024. No drainable fluid collections or gross perforation is noted. Interval development of significant anasarca and retroperitoneal inflammatory change. Brain MRI 04/08/24 17:05 IMPRESSION: 1. Normal aging brain. Chest X-Ray 04/10/24 08:29 Impression: 1: No acute cardiopulmonary disease. Labs Labs: Laboratory Results - last 24 hr 04/13/24 04/16/24 04/16/24 12:40 12:16 16:33 WBC RBC Hgb Hct MCV MCH MCHC RDW Plt Count MPV Immature Gran % (Auto) Neut % (Auto) Lymph % (Auto) [place] % (Auto) Eos % (Auto) Baso % (Auto) Lymph # (Auto) [place] # (Auto) Eos # (Auto) Baso # (Auto) Abs Immat Gran (auto) Absolute Neuts (auto) Absolute Nucleated RBC Nucleated RBC % Sodium Potassium Chloride Carbon Dioxide Anion Gap BUN Creatinine Estim Creat Clear Calc Estimated GFR Glucose POC Capillary Glucose 126 H 121 H Calcium Phosphorus Magnesium Total Bilirubin AST ALT Alkaline Phosphatase Total Protein Albumin Stool Rotavirus (PCR) TNP Stool Yersinia (PCR) TNP Stool Vibrio (PCR) TNP Stl Norovirus GI/GII PCR TNP Campylobacter Group (PCR) TNP Salmonella (PCR) TNP Shiga Toxin 1 TNP Shiga Toxin 2 TNP Shigella species (PCR) TNP 04/16/24 04/17/24 04/17/24 20:20 06:36 07:30 WBC 7.5 RBC 2.31 L Hgb 7.1 L Hct 23.0 L MCV 99.6 MCH 30.7 MCHC 30.9 L RDW 14.6 H Plt Count 268 MPV 9.9 Immature Gran % (Auto) 0.8 H Neut % (Auto) 66.8 Lymph % (Auto) 14.3 L [place] % (Auto) 12.1 H Eos % (Auto) 5.5 H Baso % (Auto) 0.5 Lymph # (Auto) 1.07 [place] # (Auto) 0.9 H Eos # (Auto) 0.4 H Baso # (Auto) 0.0 Abs Immat Gran (auto) 0.06 H Absolute Neuts (auto) 5.0 Absolute Nucleated RBC 0.000 Nucleated RBC % 0.0 Sodium 133 L Potassium 3.5 Chloride 98 Carbon Dioxide 32 H Anion Gap 3 L BUN 15 Creatinine 1.38 H Estim Creat Clear Calc Not Reportable Estimated GFR 37 L Glucose 110 POC Capillary Glucose 134 H 103 Calcium 7.9 L Phosphorus 3.4 Magnesium 1.6 Total Bilirubin 0.5 AST 21 ALT 12 Alkaline Phosphatase 45 Total Protein 5.0 L Albumin 2.9 L Stool Rotavirus (PCR) Stool Yersinia (PCR) Stool Vibrio (PCR) Stl Norovirus GI/GII PCR Campylobacter Group (PCR) Salmonella (PCR) Shiga Toxin 1 Shiga Toxin 2 Shigella species (PCR)
[2024-04-17 11:52] LABS: Glucose Point of Care 125 mg/dl (65-105)
[2024-04-17] MEDS: lisinopriL 20 MG TABLET PO (12:21)
[2024-04-17] MEDS: calcitrioL 0.25 MCG CAPSULE BY MOUTH (12:21)
[2024-04-17 12:34] LABS: Immature Reticulocyte Fraction 30.6 % (3.0-15.9); Reticulocyte Hemoglobin Conten 27.5 pg (28.2-36.6); Reticulocyte Percent 5.38 % (0.7-4.3); Reticulocytes Absolute 0.12 10^6/uL (0.02-0.10)
[2024-04-17 12:40] LABS: Iron 38 ug/dL (37-170)
[2024-04-17 12:49] LABS: Percent Iron Saturation 19 % (20-50)
[2024-04-17 13:48] LABS: Folic Acid 12.1 ng/mL (2.76->20)
[2024-04-17 17:01] LABS: Glucose Point of Care 130 mg/dl (65-105)
[2024-04-17] MEDS: PANTOPRAZOLE 40 MG TABLET PO (20:30)
[2024-04-17] MEDS: ACETAMINOPHEN 325 MG TABLET 650 MG PO (20:38)
[2024-04-17 20:45] LABS: Glucose Point of Care 164 mg/dl (65-105)
[2024-04-18] VITALS (12 sets, daily range): BP systolic 114–165; BP diastolic 39–58; PULSE 59–83; RESP 14–17; TEMP 36.2–37.1; O2SAT 90–100
[2024-04-18 06:51] LABS: Basophils Absolute Auto 0.1 K/mm3 (0.0-0.1); Basophils Percent Auto 0.7 % (0.2-1.2); Eosinophils Absolute Auto 0.4 K/mm3 (0-0.3); Eosinophils Percent Auto 5.2 % (0-4.4); Hematocrit 24.1 % (37.0-47.0); Hemoglobin 7.2 g/dL (12.0-15.0); Immature Granulocyte Absolute 0.07 K/mm3 (0.00-0.031); Lymphocytes Absolute Auto 1.08 K/mm3 (0.9-3.2); Lymphocytes Percent Auto 15.2 % (18.3-44.2); Mean Corpuscular HGB Conc 29.9 g/dl (32-36); Mean Corpuscular Hemoglobin 29.8 pg (26-34); Mean Corpuscular Volume 99.6 fl (80-100); Mean Platelet Volume 9.8 fl (7.4-10.4); Monocytes Absolute Auto 0.9 K/mm3 (0.1-0.6); Monocytes Percent Auto 12.7 % (2.6-8.5); Neutrophils Absolute Auto 4.6 K/mm3 (1.3-6.7); Neutrophils Percent Auto 65.2 % (45.5-73.1); Platelet Count Result 287 k/mm3 (150-375); Red Blood Count 2.42 M/mm3 (4.2-5.4); Red Cell Distribution Width 14.7 % (11.5-14.5); White Blood Count 7.1 K/mm3 (4.5-10.0)
[2024-04-18 06:58] LABS: Alanine Aminotransferase 12 U/L (6-35); Albumin Level 3.2 g/dL (3.5-5.1); Alkaline Phosphatase 48 U/L (38-126); Anion Gap 5 mmol/L (4-12); Aspartate Amino Transferase 20 U/L (14-36); Bilirubin,Total 0.5 mg/dL (0.2-1.3); Blood Urea Nitrogen 13 mg/dL (7-17); Calcium 8.4 mg/dL (8.4-10.2); Carbon Dioxide 31 mmol/L (22-30); Chloride 99 mmol/L (98-107); Estimated Glomerular Filt Rate 36; Glucose 110 mg/dL (65-110); Magnesium 1.4 mg/dL (1.6-2.3); Phosphorus 3.5 mg/dL (2.5-4.5); Potassium 3.6 mmol/L (3.4-5.0); Sodium 135 mmol/L (137-145)
[2024-04-18 08:01] LABS: Glucose Point of Care 101 mg/dl (65-105)
[2024-04-18] MEDS: CHOLECALCIFEROL 1,000 UNITS TABLET 2000 UNITS PO ×2 (09:46→15:16)
[2024-04-18] MEDS: PRAVASTATIN SODIUM 20 MG TABLET 40 MG PO (09:46)
[2024-04-18] MEDS: carvediloL 12.5 MG TABLET PO ×2 (09:47→20:43)
[2024-04-18] MEDS: EPOETIN ALFA-EPBX 10,000 UNITS/ML VIAL 10000 UNITS SUB-Q (09:47)
[2024-04-18] MEDS: PANTOPRAZOLE 40 MG TABLET PO ×2 (09:47→20:43)
[2024-04-18] MEDS: lisinopriL 20 MG TABLET PO (09:47)
[2024-04-18] MEDS: amLODIPine BESYLATE 5 MG TABLET PO (09:47)
[2024-04-18] MEDS: FAMOTIDINE 10 MG TABLET PO (09:48)
[2024-04-18] MEDS: LATANOPROST 0.005% OP SOLN 2.5 ML BTL 1 DROP EACH EYE (09:52)
--- NOTE | 2024-04-18 10:40 | P.PNNP_ITS ---
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 * s/p temporary HD catheter placement on 04/09/23 * HD on 04/09, 04/10, and 04/11 * no further dialytic support needed * creatinine is doing well. Stable in the low 1s . 1.41 today. * Volume status looks okay. * Electrolytes are good. (2) Chronic kidney disease, stage IV (severe): Code(s): N18.4 - Chronic kidney disease, stage 4 (severe) Status: Acute Assessment and Plan: * baseline creatinine runs ~ 1.8 - 2.3mg/dl * due hypertension, diabetes, and age-related change with contributions with previous use of NSAIDs (3) Hyponatremia: Code(s): E87.1 - Hypo-osmolality and hyponatremia Status: Acute Assessment and Plan: * improving * chronic issues at baseline * likely worsened by JAE/ARF * improved with dialysis and fluid restriction * continue fluid restriction for now * was on salt tabs as an outpatient * Sodium 135 today. Doing very well in this regard. 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 * PRBC transfusion per protocol (5) Colitis: Code(s): K52.9 - Noninfective gastroenteritis and colitis, unspecified Status: Acute Assessment and Plan: * as noted by admission CT of A/P * GI recommendations noted * off antibiotics * advance diet as tolerated (6) Chronic anemia: Code(s): D64.9 - Anemia, unspecified Status: Chronic Assessment and Plan: * probably related to CKD * acute worsening noted since admission * complicated by #5 * on Retacrit 10,000 SQ 3x/week * Hemoglobin stable. (7) Hypertension: Code(s): I10 - Essential (primary) hypertension Status: Acute Assessment and Plan: * reasonable control at this time * lisinopril restarted (8) Generalized weakness: Code(s): R53.1 - Weakness Status: Acute Assessment and Plan: * due to acute illness in association with anemia * did well with physical therapy yesterday Subjective Date/time seen: 04/18/24 10:40 Interval history: patient He is lying flat in bed. No shortness of breath. Eating okay. She says she is having some mood swings. She will talk with primary about this. She did get back on her PPI dose from at home as well as blood pressure meds and she feels better today. Exam Narrative: General: elderly female in NAD Heart: normal S1 and S2; no rub or gallop Lungs: clear bilateral Abdomen: soft, nondistended, positive bowel sounds Extremities:no edema Skin: No rash Objective Data Vital Signs Vital Signs: Vital Signs - 24 hr 04/17/24 11:57 04/17/24 12:00 04/17/24 12:00 Temperature 98.7 F Pulse Rate 78 69 Respiratory Rate 16 Blood Pressure 138/49 L Pulse Oximetry 100 Oxygen Delivery Room Air 04/17/24 16:00 04/17/24 16:00 04/17/24 20:00 Temperature 97.6 F 98.0 F Pulse Rate 71 75 76 Respiratory Rate 18 14 Blood Pressure 150/48 H 140/49 L Pulse Oximetry 100 97 Oxygen Delivery 04/17/24 20:00 04/17/24 20:00 04/17/24 20:00 Temperature 98.0 F Pulse Rate 76 73 Respiratory Rate 14 Blood Pressure 140/49 L Pulse Oximetry 97 Oxygen Delivery Room Air 04/17/24 21:27 04/17/24 21:27 04/17/24 23:34 Temperature 97.7 F Pulse Rate 85 81 69 Respiratory Rate 12 Blood Pressure 153/62 H 167/49 H 127/45 L Pulse Oximetry 95 96 94 Oxygen Delivery 04/18/24 00:00 04/18/24 04:00 04/18/24 04:00 Temperature 98.2 F Pulse Rate 65 59 L 76 Respiratory Rate 14 Blood Pressure 145/56 H Pulse Oximetry 96 Oxygen Delivery 04/18/24 08:00 04/18/24 08:00 04/18/24 08:38 Temperature 98.6 F 98.6 F 98.6 F Pulse Rate 73 73 80 Respiratory Rate 14 14 14 Blood Pressure 148/57 H 148/57 H 150/52 H Pulse Oximetry 95 95 98 Oxygen Delivery 04/18/24 08:38 04/18/24 09:47 Temperature 98.6 F Pulse Rate 79 80 Respiratory Rate 14 Blood Pressure 165/58 H Pulse Oximetry 100 Oxygen Delivery Intake/Output Intake/Output: Intake & Output 04/15/24 04/16/24 04/17/24 04/18/24 23:59 23:59 23:59 23:59 Intake Total 1170 1220 320 610 Output Total 350 450 Balance 820 770 320 610 Meds/Results Medications: Active Medications Generic Name Dose Route Start Last Admin Trade Name Freq PRN Reason Stop Dose Admin Acetaminophen 650 mg 04/04/24 12:10 04/17/24 20:38 Acetaminophen 325 Mg Tablet PO 650 mg Q4H PRN Administration Mild Pain (1-3) or Fever Amlodipine Besylate 5 mg 04/18/24 09:00 04/18/24 09:47 Amlodipine Besylate 5 Mg Tablet PO 5 mg QAM JUAN PABLO Administration Artificial Tears 1 drop 04/04/24 20:15 Artificial Tears Ophth Soln 15 Ml Bottle EACH EYE Q4H PRN Dry Eye(S) Calcitriol 0.25 mcg 04/06/24 09:00 04/17/24 12:21 Calcitriol 0.25 Mcg Capsule BY MOUTH 0.25 mcg [id number] JUAN PABLO Administration Carvedilol 12.5 mg 04/14/24 21:00 04/18/24 09:47 Carvedilol 12.5 Mg Tablet PO 12.5 mg Q12HR JUAN PABLO Administration Dextrose 12.5 gm 04/04/24 21:51 Dextrose 50% 25 Gm/50 Ml Syringe IV PUSH PRN PRN Hypoglycemia Protocol Epoetin Ki-epbx 10,000 units 04/16/24 09:00 04/18/24 09:47 Epoetin Ki-Epbx 10,000 Units/Ml Vial SUB-Q 10,000 units [id number]@09 JUAN PABLO Administration Famotidine 10 mg 04/10/24 09:00 04/18/24 09:48 Famotidine 10 Mg Tablet PO 10 mg DAILY JUAN PABLO Administration Glucagon 1 mg 04/04/24 21:51 Glucagon For Inj 1 Mg Vial IM PRN PRN Hypoglycemia Protocol Glucose 15 gm 04/04/24 21:51 Glucose Oral Gel 15 Gm Of Glucse In 37.5 Gm Tube PO PRN PRN Hypoglycemia Protocol Dextrose 1,000 mls @ 100 mls/hr 04/04/24 21:51 Dextrose 5% 1,000 Ml IVPB PRN PRN Hypoglycemia Protocol Albumin Human 50 mls @ 999 mls/hr 04/09/24 11:16 Albutein IVPB 05/09/24 11:15 Q10M PRN HYPOTENSION Latanoprost 1 drop 04/05/24 09:00 04/18/24 09:52 Latanoprost 0.005% Op Soln 2.5 Ml Btl EACH EYE 1 drop DAILY JUAN PABLO Administration Lisinopril 20 mg 04/17/24 10:20 04/18/24 09:47 Lisinopril 20 Mg Tablet PO 20 mg DAILY JUAN PABLO Administration Loratadine 10 mg 04/04/24 20:25 04/15/24 09:10 Loratadine 10 Mg Tablet PO 10 mg QAM PRN Administration allergy symptoms Ondansetron HCl 4 mg 04/04/24 12:10 04/16/24 21:01 Ondansetron Inj 4 Mg/2 Ml Vial IV PUSH 4 mg Q4H PRN Administration Nausea Pantoprazole Sodium 40 mg 04/17/24 21:00 04/18/24 09:47 Pantoprazole 40 Mg Tablet PO 40 mg Q12HR JUAN PABLO Administration Pravastatin Sodium 40 mg 04/05/24 09:00 04/18/24 09:46 Pravastatin Sodium 20 Mg Tablet PO 40 mg DAILY JUAN PABLO Administration Vitamin D 2,000 units 04/05/24 09:00 04/18/24 09:46 Cholecalciferol 1,000 Units Tablet PO 2,000 units BID JUAN PABLO Administration Radiology Results: ITS Impressions Renal Ultrasound 04/06/24 11:46 Impression: Unremarkable ultrasound of the kidneys. Cholelithiasis and gallbladder sludge incidentally noted. Abdomen/Pelvis CT 04/06/24 19:19 IMPRESSION: Left basilar infiltrate with a small right-sided pleural effusion, an interval change from 04/04/2023. Marked delayed excretion within the bilateral kidneys, consistent with patient's history. Fluid distention of the stomach, extending to the proximal jejunum consistent with patient's history Mural thickening within the rectosigmoid colon with multiple diverticula and trace surrounding inflammatory change, similar in appearance to examination dated 04/04/2024. No drainable fluid collections or gross perforation is noted. Interval development of significant anasarca and retroperitoneal inflammatory change. Brain MRI 04/08/24 17:05 IMPRESSION: 1. Normal aging brain. Chest X-Ray 04/10/24 08:29 Impression: 1: No acute cardiopulmonary disease. Labs Labs: Laboratory Results - last 24 hr 04/17/24 04/17/24 04/17/24 06:33 11:36 16:49 WBC RBC Hgb Hct MCV MCH MCHC RDW Plt Count MPV Immature Gran % (Auto) Neut % (Auto) Lymph % (Auto) [place] % (Auto) Eos % (Auto) Baso % (Auto) Lymph # (Auto) [place] # (Auto) Eos # (Auto) Baso # (Auto) Abs Immat Gran (auto) Absolute Neuts (auto) Absolute Nucleated RBC Nucleated RBC % Absolute Retic 0.12 H Percent Retic 5.38 H Immature Retic Fraction 30.6 H Retic Hgb Content 27.5 L Sodium Potassium Chloride Carbon Dioxide Anion Gap BUN Creatinine Estim Creat Clear Calc Estimated GFR Glucose POC Capillary Glucose 125 H 130 H Calcium Phosphorus Magnesium Iron 38 TIBC 200 L % Saturation 19 L Ferritin 93.50 Total Bilirubin AST ALT Alkaline Phosphatase Total Protein Albumin Vitamin B12 513.0 Folate 12.1 04/17/24 04/18/24 04/18/24 19:40 06:39 07:43 WBC 7.1 RBC 2.42 L Hgb 7.2 L Hct 24.1 L MCV 99.6 MCH 29.8 MCHC 29.9 L RDW 14.7 H Plt Count 287 MPV 9.8 Immature Gran % (Auto) 1.0 H Neut % (Auto) 65.2 Lymph % (Auto) 15.2 L [place] % (Auto) 12.7 H Eos % (Auto) 5.2 H Baso % (Auto) 0.7 Lymph # (Auto) 1.08 [place] # (Auto) 0.9 H Eos # (Auto) 0.4 H Baso # (Auto) 0.1 Abs Immat Gran (auto) 0.07 H Absolute Neuts (auto) 4.6 Absolute Nucleated RBC 0.000 Nucleated RBC % 0.0 Absolute Retic Percent Retic Immature Retic Fraction Retic Hgb Content Sodium 135 L Potassium 3.6 Chloride 99 Carbon Dioxide 31 H Anion Gap 5 BUN 13 Creatinine 1.41 H Estim Creat Clear Calc Not Reportable Estimated GFR 36 L Glucose 110 POC Capillary Glucose 164 H 101 Calcium 8.4 Phosphorus 3.5 Magnesium 1.4 L Iron TIBC % Saturation Ferritin Total Bilirubin 0.5 AST 20 ALT 12 Alkaline Phosphatase 48 Total Protein 6.0 L Albumin 3.2 L Vitamin B12 Folate
--- NOTE | 2024-04-18 11:12 | P.PNIM_ITS ---
Progress Note: A&P Assessment and Plan (1) Acute kidney injury (JAE) with acute tubular necrosis (ATN): Code(s): N17.0 - Acute kidney failure with tubular necrosis Status: Acute Assessment and Plan: Patient received IV contrast on 04/04/24 with already underlying CKD now with worsening renal failure * Baseline Cr around 2.00. * Avoid nephrotoxic drugs. * Avoid NSAIDs. * Routine CMP monitoring GFR. * Monitor electrolytes especially potassium. 04/06/2024 * Worsening Cr 4.40 today could be secondary Anesthesia from EGD * NS 75 D/C D/5 * nephrology consulted for further recommendations and evaluation * bilateral renal ultrasound * Cipro D/c switched to Rocephin 04/07/2024: * Worsening Cr 5.16 * CT showing contrast in Kidneys from 3 days prior and anasarca in the stomach * failed fluid challenge will D/C * no urinary output Pedro placed with only 50 mL * Plan for renal function in the AM if no improvement hoping for renal recovery but may need temporary dialysis with consult to surgery for dialysis access. * Potassium 5.2 dose of Lokelma 04/08: JAE continues to worsen, acidosis continues to worsen, declining mental status with slurred speech and patient stating that she believes she a stroke, MRI ordered, several medications held this afternoon. Nephrology aware as I spoke with Dr. Reyna earlier and RN called to update with worsening clinical picture. 04/09 pt to have Cam placed today to start temp dialysis soon 04/10: pt sp dialysis yesterday and today, unfortunately pt has no fluid off 04/11 * Creatinine 3.19, currently receiving HD Cr 2.37 from 3.19 yesterday. - Seen by nephro and possibly HD tomorrow or day after. - Continue to monitor renal panel closely. - Continue to avoid nephrotoxins. - No plans for HD today per pt. 04/14: Cr continues to improve 2.72>>2.48>>2.06. No further need for HD per nephro. Temporary HD catheter to be removed in AM. Continue to avoid nephrotoxins. Continue meds dosing per renal function. 04/15 cr/BUN 2.12/[address] Reyna- ok to d/c dialyses cath cr/bun 1. 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 04/12 Hgb 6.7 earlier but repeat 7.2 Continue to monitor Hgb closely. Continue oral PPI. 04/13/ Hgb 7.0 today. - Continue to monitor closely. - Continue oral PPI. 04/14 Appears stable and improving. - 7.0>>8.2 - Continue to monitor closely. - Continue oral PPI. 04/15- 7.4 today- monitor hg/hct 7.123.0- continue protonix BID (she normally takes it daily at home) transfuse per protocol (3) Colitis: Code(s): K52.9 - Noninfective gastroenteritis and colitis, unspecified Status: Acute Assessment and Plan: CT abdomen showing colitis/There is an approximately 11.4 x 24 mm fatty lesion within the hepatic flexure of the colon, most consistent with a lipoma. This type of lesion can erode and cause rectal bleeding. * GI consulted * GI recommended ciprofloxacin and Flagyl * will need follow-up colonoscopy in 6-8 weeks after infectious process resulting unless her hemoglobin continues to trend down * PPI BID * clear liquid diet * WBC 12.2 today * Stool studies pending * bright red blood in stool reported * monitoring HGB 04/06/2024 * patient advanced to low-fiber diet but had N/V change back to clear liquid * F/U ct ABD * Hgb stable 04/08: Tolerated clears but altered LOC and slurred speech today, patient moved to IMU after findings of metabolic acidosis with incomplete compensation. 04/09 : pt remains acidotic awaiting dialysis, creat is 6.9, potassium is 5, ph is low, sodium is 125 04/10: ph is improving, creat is 4, sodium is 125 sp 2 dialysis sessions 04/12: Denies any diarrhea episodes today. Tolerating renal diet well so far. C-diff negative. Continue to monitor for acute symptoms. 04/13/ No diarrhea episodes today. Continues to tolerate renal diet well. C-Diff test negative. Continue to monitor closely for acute symptoms. 04/14/ Appears resolved with pt tolerating regular renal diet well. (4) Chronic kidney disease, stage IV (severe): Code(s): N18.4 - Chronic kidney disease, stage 4 (severe) Status: Acute Assessment and Plan: * Gentle IV hydration. * Baseline around 2.00 currently 3.00 04/05/24 * Avoid nephrotoxic drugs. * Monitor antihypertensive drug therapy. * Avoid NSAIDs. * Routine CMP monitoring GFR. * Monitor electrolytes especially potassium. * Antibiotic doses depending on creatinine clearance. * Pharmacy does medications. * Routine follow-up with Nephrology as an outpatient. 04/06/2024 * Worsening Cr 4.40 today could be secondary Anesthesia from EGD * NS 75 D/C D/5 * nephrology consulted for further recommendations and evaluation * bilateral renal ultrasound * Cipro D/c switched to Rocephin 04/08: Tolerated clears but altered LOC and slurred speech today, patient moved to IMU after findings of metabolic acidosis with incomplete compensation. Potentially encephalopathy due to build up of sedating medications. MRI ordered to assess for Stroke. 04/11 * Mental status clinically improving with HD and 04/10 MRI with 'normal aging brain' 04/12 Appears to be improving clinically and with labs. Nephro following and possible dialysis tomorrow or day after. HD catheter to Left Groin. Continue to avoid nephrotoxins. Meds dosing per renal function. 04/13/ Cr 2.72 today from 2.37 yesterday. Nephro following and no HD today. HD catheter to Left Groin. Continue to avoid nephrotoxins. Meds dosing per renal function. 04/14 Much improving. Cr 2.06 today from 2.37 yesterday. Continue close monitoring with nephro assistance. Continue to avoid nephrotoxins. Meds dosing per renal function. MOnitor I/O, kidney function (5) Chronic anemia: Code(s): D64.9 - Anemia, unspecified Status: Chronic Assessment and Plan: patient's baseline is usually hemoglobin of 10 to 11 likely secondary to her chronic kidney disease but possible active GI bleed currently * Monitor HGB * Transfuse PRBC if Hgb <7.0 * hemodynamically stable 04/08: Hgb 7.9 in AM and 8.9 in afternoon 04/09: hb is 8 today 04/11 hgb 7.5, continue to trend 04/12/ Initial Hgb 6.7 and repeat level 7.2 Continue to monitor Hgb closely. Transfuse for Hgb <7 EGD showing Ferrell's Esophagus with dysplasia, no active bleeding. 04/13/ Hgb 7.0 today. Continue to monitor Hgb closely. Transfuse for Hgb <7 EGD showing Ferrell's Esophagus with dysplasia, no active bleeding. 04/14 Appears stable, 8.2 today >>7.0 yesterday. Continue to monitor closely. Transfuse for Hgb <7 EGD showing Ferrell's Esophagus with dysplasia, no active bleeding. 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 * Continue to monitor H&H closely. (7) Hypertension: Code(s): I10 - Essential (primary) hypertension Status: Acute Assessment and Plan: reviewed and currently well controlled (8) Hyponatremia: Code(s): E87.1 - Hypo-osmolality and hyponatremia Status: Acute Assessment and Plan: * chronically low, likely related to CKD. * Appears to be stabilizing. * no focal neurological deficits noted. * Further mgt per coat ironer hand. * Currently not on salt tabs. (9) Metabolic acidosis: Code(s): E87.20 - Acidosis, unspecified Status: Acute Assessment and Plan: - Previously on IV and PO sodium bicarbonate. - Currently resolved. (10) Encephalopathy acute: Code(s): G93.40 - Encephalopathy, unspecified Status: Acute Assessment and Plan: 04/08: patient with slurred speech difficulty awakening concerned for CO2 narcosis ABG resulted metabolic acidosis, beta hydroxybutyrate and lactic acid normal metabolic acidosis related to decreased renal function ammonia level negative, MRI brain without contrast also negative 04/09 likely secondary to uremia and severe MA 04/10 pt appears less confused today states she feels very tired 04/11 oriented x3, alert, continue to monitor 04/12: Well oriented with no focal neuro deficits noted. 04/13/ Appears resolved. 04/14: Mentation wnl. unchanged- continue to monitor Plan HD catheter to left-femoral artery was removed on 04/16. Noted some erythema. NO hematoma, no bruising. Area is cleaned and dry dressing applied. will monitor. Anticipate discharge in the next few days if remains stable. Subjective Date/time seen: 04/18/24 11:12 Interval history: Patient is seen and examined. She is lying fla in bed. No shortness of breath. Eating okay. She says she is having some mood swings. She will talk with primary about this. She did get back on her PPI dose from at home as well as blood pressure meds and she feels better today. Hg is at 7.2 (last 3 days) iron studies reviewed. will transfuse iron, keep working with PT/OT and anticipate discharge tomorrow. Review of Systems Review of Systems: No specific complaints All systems reviewed & are unremarkable except as noted in HPI and below Constitutional: Constitutional: Denies chills ENT: Denies nasal congestion Respiratory: Respiratory: Denies chest congestion Gastrointestinal: Gastrointestinal: Denies abdominal pain Exam Narrative: HEENT: PERRL, sclerae anicteric, pharyngeal mucosa pink and intact NECK: Supple, No JVD, adenopathy, or thyromegaly CHEST: Clear bilaterally. HEART: NL S1/S2, regular, no murmurs ABDOMEN: BS+, soft, nontender, non-distended. EXTREMITIES: No cyanosis, edema, or clubbing. Dialysis catheter to Left Groin. NEUROLOGIC: Alert, Oriented to person, place, and time. CN intact and symmetric to inspection. MUSCULOSKELETAL: Tone and strength symmetric, but slightly diminished in LE's. PSYCH: Pleasant and co-operative. Const: General: comfortable Objective Data Vital Signs Vital Signs: Vital Signs - 24 hr 04/17/24 11:57 04/17/24 12:00 04/17/24 12:00 Temperature 98.7 F Pulse Rate 78 69 Respiratory Rate 16 Blood Pressure 138/49 L Pulse Oximetry 100 Oxygen Delivery Room Air 04/17/24 16:00 04/17/24 16:00 04/17/24 20:00 Temperature 97.6 F 98.0 F Pulse Rate 71 75 76 Respiratory Rate 18 14 Blood Pressure 150/48 H 140/49 L Pulse Oximetry 100 97 Oxygen Delivery 04/17/24 20:00 04/17/24 20:00 04/17/24 20:00 Temperature 98.0 F Pulse Rate 76 73 Respiratory Rate 14 Blood Pressure 140/49 L Pulse Oximetry 97 Oxygen Delivery Room Air 04/17/24 21:27 04/17/24 21:27 04/17/24 23:34 Temperature 97.7 F Pulse Rate 85 81 69 Respiratory Rate 12 Blood Pressure 153/62 H 167/49 H 127/45 L Pulse Oximetry 95 96 94 Oxygen Delivery 04/18/24 00:00 04/18/24 04:00 04/18/24 04:00 Temperature 98.2 F Pulse Rate 65 59 L 76 Respiratory Rate 14 Blood Pressure 145/56 H Pulse Oximetry 96 Oxygen Delivery 04/18/24 08:00 04/18/24 08:00 04/18/24 08:38 Temperature 98.6 F 98.6 F 98.6 F Pulse Rate 73 73 80 Respiratory Rate 14 14 14 Blood Pressure 148/57 H 148/57 H 150/52 H Pulse Oximetry 95 95 98 Oxygen Delivery 04/18/24 08:38 04/18/24 09:47 Temperature 98.6 F Pulse Rate 79 80 Respiratory Rate 14 Blood Pressure 165/58 H Pulse Oximetry 100 Oxygen Delivery Intake/Output Intake/Output: Intake & Output 04/15/24 04/16/24 04/17/24 04/18/24 23:59 23:59 23:59 23:59 Intake Total 1170 1220 320 610 Output Total 350 450 Balance 820 770 320 610 Meds/Results Medications: Active Medications Generic Name Dose Route Start Last Admin Trade Name Freq PRN Reason Stop Dose Admin Acetaminophen 650 mg 04/04/24 12:10 04/17/24 20:38 Acetaminophen 325 Mg Tablet PO 650 mg Q4H PRN Administration Mild Pain (1-3) or Fever Amlodipine Besylate 5 mg 04/18/24 09:00 04/18/24 09:47 Amlodipine Besylate 5 Mg Tablet PO 5 mg QAM JUAN PABLO Administration Artificial Tears 1 drop 04/04/24 20:15 Artificial Tears Ophth Soln 15 Ml Bottle EACH EYE Q4H PRN Dry Eye(S) Calcitriol 0.25 mcg 04/06/24 09:00 04/17/24 12:21 Calcitriol 0.25 Mcg Capsule BY MOUTH 0.25 mcg [id number] JUAN PABLO Administration Carvedilol 12.5 mg 04/14/24 21:00 04/18/24 09:47 Carvedilol 12.5 Mg Tablet PO 12.5 mg Q12HR JUAN PABLO Administration Dextrose 12.5 gm 04/04/24 21:51 Dextrose 50% 25 Gm/50 Ml Syringe IV PUSH PRN PRN Hypoglycemia Protocol Epoetin Ki-epbx 10,000 units 04/16/24 09:00 04/18/24 09:47 Epoetin Ki-Epbx 10,000 Units/Ml Vial SUB-Q 10,000 units [id number]@09 JUAN PABLO Administration Famotidine 10 mg 04/10/24 09:00 04/18/24 09:48 Famotidine 10 Mg Tablet PO 10 mg DAILY JUAN PABLO Administration Glucagon 1 mg 04/04/24 21:51 Glucagon For Inj 1 Mg Vial IM PRN PRN Hypoglycemia Protocol Glucose 15 gm 04/04/24 21:51 Glucose Oral Gel 15 Gm Of Glucse In 37.5 Gm Tube PO PRN PRN Hypoglycemia Protocol Dextrose 1,000 mls @ 100 mls/hr 04/04/24 21:51 Dextrose 5% 1,000 Ml IVPB PRN PRN Hypoglycemia Protocol Albumin Human 50 mls @ 999 mls/hr 04/09/24 11:16 Albutein IVPB 05/09/24 11:15 Q10M PRN HYPOTENSION Latanoprost 1 drop 04/05/24 09:00 04/18/24 09:52 Latanoprost 0.005% Op Soln 2.5 Ml Btl EACH EYE 1 drop DAILY JUAN PABLO Administration Lisinopril 20 mg 04/17/24 10:20 04/18/24 09:47 Lisinopril 20 Mg Tablet PO 20 mg DAILY JUAN PABLO Administration Loratadine 10 mg 04/04/24 20:25 04/15/24 09:10 Loratadine 10 Mg Tablet PO 10 mg QAM PRN Administration allergy symptoms Ondansetron HCl 4 mg 04/04/24 12:10 04/16/24 21:01 Ondansetron Inj 4 Mg/2 Ml Vial IV PUSH 4 mg Q4H PRN Administration Nausea Pantoprazole Sodium 40 mg 04/17/24 21:00 04/18/24 09:47 Pantoprazole 40 Mg Tablet PO 40 mg Q12HR JUAN PABLO Administration Pravastatin Sodium 40 mg 04/05/24 09:00 04/18/24 09:46 Pravastatin Sodium 20 Mg Tablet PO 40 mg DAILY JUAN PABLO Administration Vitamin D 2,000 units 04/05/24 09:00 04/18/24 09:46 Cholecalciferol 1,000 Units Tablet PO 2,000 units BID JUAN PABLO Administration Radiology Results: ITS Impressions Renal Ultrasound 04/06/24 11:46 Impression: Unremarkable ultrasound of the kidneys. Cholelithiasis and gallbladder sludge incidentally noted. Abdomen/Pelvis CT 04/06/24 19:19 IMPRESSION: Left basilar infiltrate with a small right-sided pleural effusion, an interval change from 04/04/2023. Marked delayed excretion within the bilateral kidneys, consistent with patient's history. Fluid distention of the stomach, extending to the proximal jejunum consistent with patient's history Mural thickening within the rectosigmoid colon with multiple diverticula and trace surrounding inflammatory change, similar in appearance to examination dated 04/04/2024. No drainable fluid collections or gross perforation is noted. Interval development of significant anasarca and retroperitoneal inflammatory change. Brain MRI 04/08/24 17:05 IMPRESSION: 1. Normal aging brain. Chest X-Ray 04/10/24 08:29 Impression: 1: No acute cardiopulmonary disease. Labs Labs: Laboratory Results - last 24 hr 04/17/24 04/17/24 04/17/24 06:33 11:36 16:49 WBC RBC Hgb Hct MCV MCH MCHC RDW Plt Count MPV Immature Gran % (Auto) Neut % (Auto) Lymph % (Auto) Holmes % (Auto) Eos % (Auto) Baso % (Auto) Lymph # (Auto) Holmes # (Auto) Eos # (Auto) Baso # (Auto) Abs Immat Gran (auto) Absolute Neuts (auto) Absolute Nucleated RBC Nucleated RBC % Absolute Retic 0.12 H Percent Retic 5.38 H Immature Retic Fraction 30.6 H Retic Hgb Content 27.5 L Sodium Potassium Chloride Carbon Dioxide Anion Gap BUN Creatinine Estim Creat Clear Calc Estimated GFR Glucose POC Capillary Glucose 125 H 130 H Calcium Phosphorus Magnesium Iron 38 TIBC 200 L % Saturation 19 L Ferritin 93.50 Total Bilirubin AST ALT Alkaline Phosphatase Total Protein Albumin Vitamin B12 513.0 Folate 12.1 04/17/24 04/18/24 04/18/24 19:40 06:39 07:43 WBC 7.1 RBC 2.42 L Hgb 7.2 L Hct 24.1 L MCV 99.6 MCH 29.8 MCHC 29.9 L RDW 14.7 H Plt Count 287 MPV 9.8 Immature Gran % (Auto) 1.0 H Neut % (Auto) 65.2 Lymph % (Auto) 15.2 L Holmes % (Auto) 12.7 H Eos % (Auto) 5.2 H Baso % (Auto) 0.7 Lymph # (Auto) 1.08 Holmes # (Auto) 0.9 H Eos # (Auto) 0.4 H Baso # (Auto) 0.1 Abs Immat Gran (auto) 0.07 H Absolute Neuts (auto) 4.6 Absolute Nucleated RBC 0.000 Nucleated RBC % 0.0 Absolute Retic Percent Retic Immature Retic Fraction Retic Hgb Content Sodium 135 L Potassium 3.6 Chloride 99 Carbon Dioxide 31 H Anion Gap 5 BUN 13 Creatinine 1.41 H Estim Creat Clear Calc Not Reportable Estimated GFR 36 L Glucose 110 POC Capillary Glucose 164 H 101 Calcium 8.4 Phosphorus 3.5 Magnesium 1.4 L Iron TIBC % Saturation Ferritin Total Bilirubin 0.5 AST 20 ALT 12 Alkaline Phosphatase 48 Total Protein 6.0 L Albumin 3.2 L Vitamin B12 Folate Quality VTE Prophylaxis VTE prophylaxis: mechanical ordered
[2024-04-18 11:38] LABS: Glucose Point of Care 163 mg/dl (65-105)
[2024-04-18] MEDS: IRON SUCROSE COMPLEX 100 MG in SODIUM CHLORIDE 0.9% IV 50 ML 220 MG IVPB (15:16)
[2024-04-18] MEDS: MAGNESIUM OXIDE 400 MG TABLET PO (15:16)
[2024-04-18 16:22] LABS: Glucose Point of Care 134 mg/dl (65-105)
[2024-04-18] MEDS: ACETAMINOPHEN 325 MG TABLET 650 MG PO (20:42)
[2024-04-18 22:55] LABS: Glucose Point of Care 124 mg/dl (65-105)
[2024-04-19] VITALS: BP 145/56; PULSE 68; PULSE 70; RESP 14; TEMP 36.4; O2SAT 95
[2024-04-19 04:00] VITALS: BP 165/82; PULSE 68; PULSE 71; RESP 14; TEMP 36.5; O2SAT 97
[2024-04-19 06:50] LABS: Alanine Aminotransferase 12 U/L (6-35); Albumin Level 3.3 g/dL (3.5-5.1); Alkaline Phosphatase 49 U/L (38-126); Anion Gap 3 mmol/L (4-12); Aspartate Amino Transferase 18 U/L (14-36); Bilirubin,Total 0.6 mg/dL (0.2-1.3); Blood Urea Nitrogen 12 mg/dL (7-17); Calcium 8.6 mg/dL (8.4-10.2); Carbon Dioxide 32 mmol/L (22-30); Chloride 100 mmol/L (98-107); Estimated Glomerular Filt Rate 40; Glucose 120 mg/dL (65-110); Magnesium 1.4 mg/dL (1.6-2.3); Potassium 3.6 mmol/L (3.4-5.0); Sodium 135 mmol/L (137-145)
[2024-04-19 06:59] LABS: Basophils Absolute Auto 0.1 K/mm3 (0.0-0.1); Basophils Percent Auto 0.9 % (0.2-1.2); Eosinophils Absolute Auto 0.4 K/mm3 (0-0.3); Eosinophils Percent Auto 4.7 % (0-4.4); Hematocrit 25.4 % (37.0-47.0); Hemoglobin 7.6 g/dL (12.0-15.0); Immature Granulocyte Absolute 0.06 K/mm3 (0.00-0.031); Immature Granulocyte Percent A 0.8 % (0-0.5); Lymphocytes Absolute Auto 1.12 K/mm3 (0.9-3.2); Lymphocytes Percent Auto 14.6 % (18.3-44.2); Mean Corpuscular HGB Conc 29.9 g/dl (32-36); Mean Corpuscular Hemoglobin 29.9 pg (26-34); Monocytes Absolute Auto 1.1 K/mm3 (0.1-0.6); Monocytes Percent Auto 14.4 % (2.6-8.5); Neutrophils Percent Auto 64.6 % (45.5-73.1); Platelet Count Result 363 k/mm3 (150-375); Red Blood Count 2.54 M/mm3 (4.2-5.4); Red Cell Distribution Width 14.9 % (11.5-14.5); White Blood Count 7.7 K/mm3 (4.5-10.0)
[2024-04-19 07:45] LABS: Glucose Point of Care 121 mg/dl (65-105)
[2024-04-19 08:00] VITALS: BP 139/43; BP 164/50; PULSE 73; PULSE 76; PULSE 79; RESP 17; TEMP 36.7; TEMP 36.8; O2SAT 98; O2SAT 99
--- NOTE | 2024-04-19 09:42 | P.PNNP_ITS ---
Progress Note: A&P Assessment and Plan (1) JAE (acute kidney injury): Code(s): N17.9 - Acute kidney failure, unspecified Status: Acute Assessment and Plan: * resolving/resolved * suspect multifactorial etiology: * prerenal factors * relative hypotension * contrast exposure (CT with contrast on 04/04/24) * LENNIE-I use prior to admission * relative anemia * other (?) * evaluation to date noted: * urine electrolytes prerenal * urine eosinophils negative * UA without evidence of infection * CPK normal * renal ultrasound okay * repeat CT of A/P still notes contrast present in kidneys * was on hemo and renal function has recovered. * creatinine is doing well. Stable in the low 1s . 1.30 today. * Volume status looks okay. * Electrolytes are good. (2) Chronic kidney disease, stage IV (severe): Code(s): N18.4 - Chronic kidney disease, stage 4 (severe) Status: Acute Assessment and Plan: * baseline creatinine runs ~ 1.8 - 2.3mg/dl * due hypertension, diabetes, and age-related change with contributions with previous use of NSAIDs (3) Hyponatremia: Code(s): E87.1 - Hypo-osmolality and hyponatremia Status: Acute Assessment and Plan: * improving * Sodium 135 today. Doing very well in this regard. * Continue fluid restriction At home. * follow-up Dr. Reyna for future directions. 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 * PRBC transfusion per protocol (5) Colitis: Code(s): K52.9 - Noninfective gastroenteritis and colitis, unspecified Status: Acute Assessment and Plan: * as noted by admission CT of A/P * GI recommendations noted * off antibiotics * Diet per GI (6) Chronic anemia: Code(s): D64.9 - Anemia, unspecified Status: Chronic Assessment and Plan: * probably related to CKD * acute worsening noted since admission * complicated by #5 * on Retacrit 10,000 SQ 3x/week * Hemoglobin stable. (7) Hypertension: Code(s): I10 - Essential (primary) hypertension Status: Acute Assessment and Plan: * reasonable control at this time * lisinopril restarted (8) Generalized weakness: Code(s): R53.1 - Weakness Status: Acute Assessment and Plan: * due to acute illness in association with anemia * did well with physical therapy yesterday Subjective Date/time seen: 04/19/24 09:42 Interval history: Patient feels okay today. She ate a good breakfast. She is breathing okay. She is eager for discharge Exam Narrative: General: elderly female in NAD Heart: normal S1 and S2; no rub or gallop Lungs: clear bilaterally Abdomen: soft, nondistended, positive bowel sounds Extremities:no edema Skin: No rash or subcu nodules Objective Data Vital Signs Vital Signs: Vital Signs - 24 hr 04/18/24 09:47 04/18/24 11:27 04/18/24 12:00 Temperature 98.7 F Pulse Rate 80 78 83 Respiratory Rate 16 Blood Pressure 114/39 L Pulse Oximetry 99 Oxygen Delivery 04/18/24 15:49 04/18/24 16:00 04/18/24 20:00 Temperature 97.9 F Pulse Rate 76 81 Respiratory Rate 17 Blood Pressure 141/48 H Pulse Oximetry 100 Oxygen Delivery Room Air 04/18/24 20:00 04/18/24 20:00 04/18/24 22:43 Temperature 97.1 F L Pulse Rate 72 79 73 Respiratory Rate 14 14 Blood Pressure 135/52 L 145/50 H Pulse Oximetry 98 90 Oxygen Delivery 04/18/24 22:46 04/19/24 00:00 04/19/24 00:00 Temperature 97.6 F Pulse Rate 75 70 68 Respiratory Rate 14 14 Blood Pressure 152/50 H 145/56 H Pulse Oximetry 91 95 Oxygen Delivery 04/19/24 04:00 04/19/24 04:00 Temperature 97.7 F Pulse Rate 68 71 Respiratory Rate 14 Blood Pressure 165/82 H Pulse Oximetry 97 Oxygen Delivery Intake/Output Intake/Output: Intake & Output 04/16/24 04/17/24 04/18/24 04/19/24 23:59 23:59 23:59 23:59 Intake Total 1220 320 846 250 Output Total 450 Balance 770 320 846 250 Meds/Results Medications: Active Medications Generic Name Dose Route Start Last Admin Trade Name Freq PRN Reason Stop Dose Admin Acetaminophen 650 mg 04/04/24 12:10 04/18/24 20:42 Acetaminophen 325 Mg Tablet PO 650 mg Q4H PRN Administration Mild Pain (1-3) or Fever Amlodipine Besylate 5 mg 04/18/24 09:00 04/18/24 09:47 Amlodipine Besylate 5 Mg Tablet PO 5 mg QAM JUAN PABLO Administration Artificial Tears 1 drop 04/04/24 20:15 Artificial Tears Ophth Soln 15 Ml Bottle EACH EYE Q4H PRN Dry Eye(S) Calcitriol 0.25 mcg 04/06/24 09:00 04/17/24 12:21 Calcitriol 0.25 Mcg Capsule BY MOUTH 0.25 mcg [id number] JUAN PABLO Administration Carvedilol 12.5 mg 04/14/24 21:00 04/18/24 20:43 Carvedilol 12.5 Mg Tablet PO 12.5 mg Q12HR JUAN PABLO Administration Dextrose 12.5 gm 04/04/24 21:51 Dextrose 50% 25 Gm/50 Ml Syringe IV PUSH PRN PRN Hypoglycemia Protocol Epoetin Ki-epbx 10,000 units 04/16/24 09:00 04/18/24 09:47 Epoetin Ki-Epbx 10,000 Units/Ml Vial SUB-Q 10,000 units [id number]@09 JUAN PABLO Administration Famotidine 10 mg 04/10/24 09:00 04/18/24 09:48 Famotidine 10 Mg Tablet PO 10 mg DAILY JUAN PABLO Administration Glucagon 1 mg 04/04/24 21:51 Glucagon For Inj 1 Mg Vial IM PRN PRN Hypoglycemia Protocol Glucose 15 gm 04/04/24 21:51 Glucose Oral Gel 15 Gm Of Glucse In 37.5 Gm Tube PO PRN PRN Hypoglycemia Protocol Dextrose 1,000 mls @ 100 mls/hr 04/04/24 21:51 Dextrose 5% 1,000 Ml IVPB PRN PRN Hypoglycemia Protocol Albumin Human 50 mls @ 999 mls/hr 04/09/24 11:16 Albutein IVPB 05/09/24 11:15 Q10M PRN HYPOTENSION Latanoprost 1 drop 04/05/24 09:00 04/18/24 09:52 Latanoprost 0.005% Op Soln 2.5 Ml Btl EACH EYE 1 drop DAILY JUAN PABLO Administration Loperamide HCl 2 mg 04/18/24 17:43 Loperamide Hcl 2 Mg Capsule PO PRN PRN Diarrhea Loratadine 10 mg 04/04/24 20:25 04/15/24 09:10 Loratadine 10 Mg Tablet PO 10 mg QAM PRN Administration allergy symptoms Magnesium Oxide 400 mg 04/18/24 11:20 04/18/24 15:16 Magnesium Oxide 400 Mg Tablet PO 400 mg DAILY JUAN PABLO Administration Ondansetron HCl 4 mg 04/04/24 12:10 04/16/24 21:01 Ondansetron Inj 4 Mg/2 Ml Vial IV PUSH 4 mg Q4H PRN Administration Nausea Pantoprazole Sodium 40 mg 04/17/24 21:00 04/18/24 20:43 Pantoprazole 40 Mg Tablet PO 40 mg Q12HR JUAN PABLO Administration Pravastatin Sodium 40 mg 04/05/24 09:00 04/18/24 09:46 Pravastatin Sodium 20 Mg Tablet PO 40 mg DAILY JUAN PABLO Administration Vitamin D 2,000 units 04/05/24 09:00 04/18/24 15:16 Cholecalciferol 1,000 Units Tablet PO 2,000 units BID JUAN PABLO Administration Radiology Results: ITS Impressions Renal Ultrasound 04/06/24 11:46 Impression: Unremarkable ultrasound of the kidneys. Cholelithiasis and gallbladder sludge incidentally noted. Abdomen/Pelvis CT 04/06/24 19:19 IMPRESSION: Left basilar infiltrate with a small right-sided pleural effusion, an interval change from 04/04/2023. Marked delayed excretion within the bilateral kidneys, consistent with patient's history. Fluid distention of the stomach, extending to the proximal jejunum consistent with patient's history Mural thickening within the rectosigmoid colon with multiple diverticula and trace surrounding inflammatory change, similar in appearance to examination dated 04/04/2024. No drainable fluid collections or gross perforation is noted. Interval development of significant anasarca and retroperitoneal inflammatory change. Brain MRI 04/08/24 17:05 IMPRESSION: 1. Normal aging brain. Chest X-Ray 04/10/24 08:29 Impression: 1: No acute cardiopulmonary disease. Labs Labs: Laboratory Results - last 24 hr 04/18/24 04/18/24 04/18/24 11:33 16:16 22:51 WBC RBC Hgb Hct MCV MCH MCHC RDW Plt Count MPV Immature Gran % (Auto) Neut % (Auto) Lymph % (Auto) [place] % (Auto) Eos % (Auto) Baso % (Auto) Lymph # (Auto) [place] # (Auto) Eos # (Auto) Baso # (Auto) Abs Immat Gran (auto) Absolute Neuts (auto) Absolute Nucleated RBC Nucleated RBC % Sodium Potassium Chloride Carbon Dioxide Anion Gap BUN Creatinine Estim Creat Clear Calc Estimated GFR Glucose POC Capillary Glucose 163 H 134 H 124 H Calcium Phosphorus Magnesium Total Bilirubin AST ALT Alkaline Phosphatase Total Protein Albumin 04/19/24 04/19/24 06:19 07:33 WBC 7.7 RBC 2.54 L Hgb 7.6 L Hct 25.4 L MCV 100.0 MCH 29.9 MCHC 29.9 L RDW 14.9 H Plt Count 363 MPV 10.0 Immature Gran % (Auto) 0.8 H Neut % (Auto) 64.6 Lymph % (Auto) 14.6 L [place] % (Auto) 14.4 H Eos % (Auto) 4.7 H Baso % (Auto) 0.9 Lymph # (Auto) 1.12 [place] # (Auto) 1.1 H Eos # (Auto) 0.4 H Baso # (Auto) 0.1 Abs Immat Gran (auto) 0.06 H Absolute Neuts (auto) 5.0 Absolute Nucleated RBC 0.000 Nucleated RBC % 0.0 Sodium 135 L Potassium 3.6 Chloride 100 Carbon Dioxide 32 H Anion Gap 3 L BUN 12 Creatinine 1.30 H Estim Creat Clear Calc Not Reportable Estimated GFR 40 L Glucose 120 H POC Capillary Glucose 121 H Calcium 8.6 Phosphorus 3.0 Magnesium 1.4 L Total Bilirubin 0.6 AST 18 ALT 12 Alkaline Phosphatase 49 Total Protein 6.0 L Albumin 3.3 L
[2024-04-19] MEDS: FAMOTIDINE 10 MG TABLET PO (10:43)
[2024-04-19] MEDS: amLODIPine BESYLATE 5 MG TABLET PO (10:43)
[2024-04-19] MEDS: PANTOPRAZOLE 40 MG TABLET PO (10:43)
[2024-04-19] MEDS: PRAVASTATIN SODIUM 20 MG TABLET 40 MG PO (10:43)
[2024-04-19] MEDS: carvediloL 12.5 MG TABLET PO (10:43)
[2024-04-19] MEDS: MAGNESIUM OXIDE 400 MG TABLET PO (10:43)
[2024-04-19] MEDS: LATANOPROST 0.005% OP SOLN 2.5 ML BTL 1 DROP EACH EYE (10:44)
[2024-04-19 10:49] VITALS: BP 164/68; BP 168/55; PULSE 79; PULSE 81; RESP 17; TEMP 36.8; O2SAT 100; O2SAT 99
[2024-04-19] MEDS: CHOLECALCIFEROL 1,000 UNITS TABLET 2000 UNITS PO (10:51)
[2024-04-19 11:43] LABS: Glucose Point of Care 143 mg/dl (65-105)
--- NOTE | 2024-04-19 13:41 | P.DS_ITS ---
DS: Admitting Diagnosis Discharge Date 04/19 Admitting Diagnosis vomiting blood DS: Discharge Diagnosis Discharge Diagnosis (1) Acute kidney injury (JAE) with acute tubular necrosis (ATN): Code(s): N17.0 - Acute kidney failure with tubular necrosis Status: Acute (2) GI bleed: Code(s): K92.2 - Gastrointestinal hemorrhage, unspecified Status: Acute Assessment and Plan: (3) Colitis: Code(s): K52.9 - Noninfective gastroenteritis and colitis, unspecified Status: Acute Assessment and Plan: (4) Chronic kidney disease, stage IV (severe): Code(s): N18.4 - Chronic kidney disease, stage 4 (severe) Status: Acute Assessment and Plan: (5) Chronic anemia: Code(s): D64.9 - Anemia, unspecified Status: Chronic Assessment and Plan: (6) Ferrell esophagus: Code(s): K22.70 - Ferrell's esophagus without dysplasia Status: Acute (7) Hypertension: Code(s): I10 - Essential (primary) hypertension Status: Acute (8) Hyponatremia: Code(s): E87.1 - Hypo-osmolality and hyponatremia Status: Acute (9) Metabolic acidosis: Code(s): E87.20 - Acidosis, unspecified Status: Acute (10) Encephalopathy acute: Code(s): G93.40 - Encephalopathy, unspecified Status: Acute DS: Summary Hospital Course Hospital Course: This is a 74 year old female with hypertension, hyperlipidemia, type 2 diabetes mellitus, CKD, hypothyroidism, anemia who was initially admitted to [facility] on 04/04/2024 for concerns for GI bleed. She has been treated for possible GI bleed, colitis, acute on chronic CKD. EGD showed no active bleeding, Ferrell's esophagus, minimal gastritis, hiatal hernia. JAE has continued to progress to the point where she was started on dialysis. Hgb was 6.7 on 04/12. She had cardiology, nephrology and GI following her. # JAE * suspect multifactorial etiology: * prerenal factors * relative hypotension * contrast exposure (CT with contrast on 04/04/24) * LENNIE-I use prior to admission * relative anemia * other (?) * evaluation to date noted: * urine electrolytes prerenal * urine eosinophils negative * UA without evidence of infection * CPK normal * renal ultrasound okay * repeat CT of A/P still notes contrast present in kidneys * was on hemo and renal function has recovered. * creatinine is doing well. Stable in the low 1s . 1.30 today. * Volume status looks okay. * Electrolytes are good. Dialyses cath was discontinued on 04/15 cr/bun 1.38 today- back to baseline lisinopril was restarted yesterday -will monitor Pt takes lisinopril every other day at home. So she will have to monitor BP daily and discuss further regimen with her pcp # CKD * baseline creatinine runs ~ 1.8 - 2.3mg/dl * due hypertension, diabetes, and age-related change with contributions with previous use of NSAIDs # Hyponatremia/hypo-osmolality improved * Continue fluid restriction at home. * follow-up Dr. Reyna for future directions # GI bleed: * reported history of vomiting blood [employer] * known history of Barrettt's esophagus * Hgb dropped since admission * GI following: * s/p EGD - no active bleeding with Ferrell's esophagus * on PPI * received iron transfusion on 04/18 * hg 7.6 today-04/19 improving * will need a close f/u with PCP for monitoring # Afib cardiology was consulted Echocardiogram completed TSH level mildly elevated, T4 level normal. On Coreg at home, but not receiving here. Will resume her beta radha. Given her significant anemia, will not start anticoagulation for stroke risk reduction at this time. Will see how her anemia does, close outpatient follow up. If not a candidate for anticoagulation, may be considered for left atrial appendage closure device. Status at Discharge Functional status at discharge: independent ambulation Overall status at discharge: patient is progressing back to baseline Time Spent with Patient Time attestation: Total time spent providing and/or coordinating discharge services: Time spent: Greater than 30 minutes Exam Narrative: HEENT: PERRL, sclerae anicteric, pharyngeal mucosa pink and intact NECK: Supple, No JVD, adenopathy, or thyromegaly CHEST: Clear bilaterally. HEART: NL S1/S2, regular, no murmurs ABDOMEN: BS+, soft, nontender, non-distended. EXTREMITIES: No cyanosis, edema, or clubbing. Dialysis catheter to Left Groin. NEUROLOGIC: Alert, Oriented to person, place, and time. CN intact and symmetric to inspection. MUSCULOSKELETAL: Tone and strength symmetric, but slightly diminished in LE's. PSYCH: Pleasant and co-operative. Const: General: comfortable DS: Data Data Completed and Pending Completed studies during hospitalization: abd/pelvis ct, brain mri, chest xray Labs on day of discharge: Labs from last 24 hours 04/19/24 04/19/24 04/19/24 11:38 07:33 06:19 WBC 7.7 RBC 2.54 L Hgb 7.6 L Hct 25.4 L MCV 100.0 MCH 29.9 MCHC 29.9 L RDW 14.9 H Plt Count 363 MPV 10.0 Immature Gran % (Auto) 0.8 H Neut % (Auto) 64.6 Lymph % (Auto) 14.6 L [place] % (Auto) 14.4 H Eos % (Auto) 4.7 H Baso % (Auto) 0.9 Lymph # (Auto) 1.12 [place] # (Auto) 1.1 H Eos # (Auto) 0.4 H Baso # (Auto) 0.1 Abs Immat Gran (auto) 0.06 H Absolute Neuts (auto) 5.0 Absolute Nucleated RBC 0.000 Nucleated RBC % 0.0 Sodium 135 L Potassium 3.6 Chloride 100 Carbon Dioxide 32 H Anion Gap 3 L BUN 12 Creatinine 1.30 H Estim Creat Clear Calc Not Reportable Estimated GFR 40 L Glucose 120 H POC Capillary Glucose 143 H 121 H Calcium 8.6 Phosphorus 3.0 Magnesium 1.4 L Total Bilirubin 0.6 AST 18 ALT 12 Alkaline Phosphatase 49 Total Protein 6.0 L Albumin 3.3 L 04/18/24 04/18/24 22:51 16:16 WBC RBC Hgb Hct MCV MCH MCHC RDW Plt Count MPV Immature Gran % (Auto) Neut % (Auto) Lymph % (Auto) [place] % (Auto) Eos % (Auto) Baso % (Auto) Lymph # (Auto) [place] # (Auto) Eos # (Auto) Baso # (Auto) Abs Immat Gran (auto) Absolute Neuts (auto) Absolute Nucleated RBC Nucleated RBC % Sodium Potassium Chloride Carbon Dioxide Anion Gap BUN Creatinine Estim Creat Clear Calc Estimated GFR Glucose POC Capillary Glucose 124 H 134 H Calcium Phosphorus Magnesium Total Bilirubin AST ALT Alkaline Phosphatase Total Protein Albumin Discharge Plan Discharge Attending physician on discharge: Abel Awan Consulting providers: Aubrey Reyna; Zayra Combs Discharging Clinician: Yessy Tenorio Patient Disposition: Home, Self-Care Activity: may shower Diet: as tolerated and renal Discharge Instructions: You were admitted and treated for many issues. Your kidney functions stabilized, please follow up with DR Reyna as an oupt. Please f/u with your PCP to discuss and monitor your blood pressure as we discussed. Dr Harrison started you on 5 mg of amlodipine, take that daily as this medication doesnot affect kidneys as lisinopril. See your cardiology next week. I will order CBC -to recheck your hemoglobin level- please do it in a week or so. WE didnot give you gabapentin while you were admitted, so if there is no need for it, donto take it. However, if you start having neuropathy, you can start taking the lowest dose- like 100 mg at bedtime. Patient Instructions: Antibiotic Form Patient Language: Telugu Stand Alone Forms: General Discharge Information Follow-up/Referrals: Crocker,Farhat Guadarrama APRN [Primary Care Provider] - 1 Week Aubrey Reyna MD [Physician] - 1 Week Zayra Combs OCCUPATIONAL HEALTH NURSING DIRECTOR-C [Advanced Practice Nurse] - 1 Week Discharge Medications: New amlodipine [Norvasc] 5 mg Tablet 5 mg PO QAM Qty: 90 0RF Continued latanoprost [Xalatan] 0.005 % Drops 1 drp EACH EYE DAILY pravastatin 40 mg Tablet 40 mg PO DAILY bupropion HCl 100 mg Tablet 100 mg PO BID pantoprazole [Protonix] 40 mg Tablet,Delayed Release (Dr/Ec) 40 mg PO QAM cholecalciferol (vitamin D3) [Vitamin D3] 50 mcg (2,000 unit) Tablet 50 mcg PO BID cetirizine [Zyrtec] 10 mg tablet 10 mg PO DAILY PRN (Reason: allergy symptoms) meclizine 25 mg tablet 25 mg PO TID PRN (Reason: dizziness) Qty: 14 0RF calcitriol 0.25 mcg capsule See Rx Instructions .ROUTE .COMPLEX Qty: 38 3RF Dose Instruction: TAKE ONE CAPSULE BY MOUTH CAPSULE 3 TIMES WEEKLY. TAKE ON MONDAYS, WEDNESDAYS, AND FRIDAYS. Rx Instructions: TAKE ONE CAPSULE BY MOUTH CAPSULE 3 TIMES WEEKLY. TAKE ON MONDAYS, WEDNESDAYS, AND FRIDAYS. acetaminophen [Mapap (acetaminophen)] 325 mg Tablet 650 mg PO Q6H PRN (Reason: Mild Pain (1-3) Or Fever) Qty: 30 0RF quetiapine 50 mg Tablet 100 mg PO HS Qty: 30 0RF Artificial Tears([id number]) 1-0.2-0.2 % Drops 1 drp EACH EYE Q4H PRN (Reason: Dry Eye(S)) Qty: 15 0RF carvedilol [Coreg] 12.5 mg Tablet 12.5 mg PO Q12HR Qty: 60 0RF escitalopram oxalate 10 mg Tablet 20 mg PO DAILY Qty: 30 0RF sodium chloride 1,000 mg Tablet,Soluble 1,000 mg PO QAM Qty: 14 0RF famotidine 20 mg Tablet 20 mg PO Q12HR Qty: 30 0RF Held lisinopril [Zestril] 20 mg Tablet 20 mg PO DAILY Hold Instructions: Resume on 04/27/24. hold until directed otherwise per pcp Discontinued gabapentin [Neurontin] 300 mg Capsule 300 mg PO TID Qty: 90 0RF Date of admission: 04/06/24 13:32 Primary Care Provider: ObiFarhat Admitting Provider: Say Lockett Attending physician on admission: Yaritza Ramos Condition: Guarded Prognosis Quality VTE Prophylaxis VTE prophylaxis: mechanical ordered Hospitalist MIPS Heart Failure (Exclusion) Patient has history of Heart Transplant or Left Ventricular Assistive Device?: No IF YES, STOP HERE Heart Failure (Qualifier) Patient has current or prior documentation of LVEF less than or equal to 40%, or mod/servere depressed LVSF?: No IF NO, STOP HERE
== END 2024-04-19 15:20 | disposition home or self-care (01) | DRG 377 ==
LOC: ANHED 10:15 → ANH3MEDSUR 16:05 → ANH3MED 04-05 07:25 → ANH3MEDSUR 04-06 08:45 → ANH3MED 04-08 14:24 → ANHIMU 04-08 16:42 → ANH3MEDSUR 04-11 17:54
PROVIDERS: Emergency Medicine; Family Medicine; General Practice; Internal Medicine; Internal Medicine Gastroenterology; Internal Medicine Nephrology; Nurse Practitioner; Nurse Practitioner Adult Health; Nurse Practitioner Family; Physician Assistant; Admitting Provider Internal Medicine; Emergency Provider Student in an Organized Health Care Education/Training Program; PCP Nurse Practitioner Family; Visit Provider Nurse Practitioner
PROC: 0DJ08ZZ Inspection of Upper Intestinal Tract, Via Natural or Artificial Opening Endoscopic (ICD-10-PCS; principal; 2024-04-04 16:00)
DX: K92.2 Gastrointestinal hemorrhage, unspecified (principal); N17.0 Acute kidney failure with tubular necrosis; E87.1 Hypo-osmolality and hyponatremia; E87.20 Acidosis, unspecified; G93.40 Encephalopathy, unspecified; N18.4 Chronic kidney disease, stage 4 (severe); Z99.2 Dependence on renal dialysis; K52.9 Noninfective gastroenteritis and colitis, unspecified; D63.1 Anemia in chronic kidney disease; E11.22 Type 2 diabetes mellitus with diabetic chronic kidney disease; E03.9 Hypothyroidism, unspecified; E78.5 Hyperlipidemia, unspecified; E55.9 Vitamin D deficiency, unspecified; E11.649 Type 2 diabetes mellitus with hypoglycemia without coma; G25.81 Restless legs syndrome; H26.9 Unspecified cataract; I12.9 Hypertensive chronic kidney disease with stage 1 through stage 4 chronic kidney disease, or unspecified chronic kidney disease; I48.0 Paroxysmal atrial fibrillation; K22.70 Barrett's esophagus without dysplasia; K44.9 Diaphragmatic hernia without obstruction or gangrene; N99.0 Postprocedural (acute) (chronic) kidney failure; Z90.49 Acquired absence of other specified parts of digestive tract
CPT/HCPCS: 36415; 36600; 70551; 71045; 74176; 74177; 76775; 80048; 80053; 81001; 81050; 82010; 82140; 82550; 82570; 82607; 82728; 82746; 82805; 82948; 83540; 83550; 83605; 83735; 84100; 84145; 84156; 84300; 84439; 84443; 84480; 84540; 85014; 85018; 85025; 85027; 85046; 85610; 85730; 85999; 86704; 86706; 86850; 86900; 86901; 87040; 87340; 87493; 87506; 93005; 96365; 96367; 96375; 97161; 97165; 97535; 99285; A9270; C1752; C8929; G0257; G0378; J0696; J0744; J1644; J1756; J1836; J1940; J2003; J2270; J2405; J2470; J2765; J3475; J7030; J7042; J7120; P9047; Q5105; Q9957; Q9967

== ENCOUNTER 2024-06-08 15:04 | Outpatient (CLI) | payer MEDICARE, SELFPAY ==
--- NOTE | ~2024-06-08 | MM_ITS ---
EXAMINATION: MM screening [facility] BI w milan HISTORY: Screening mammogram TECHNIQUE: Craniocaudal and mediolateral oblique 3-D tomosynthesis images were obtained and synthetic 2-D images were generated. CAD analysis was submitted and interpreted. COMPARISON: 05/06/2023, 02/14/2022, 10/14/2020 BREAST PARENCHYMAL COMPOSITION:Not Dense. There are scattered areas of fibroglandular density. FINDINGS: No suspicious mass, calcification, or architectural distortion are identified in either jacob ast to suggest malignancy. There has been no suspicious interval change. IMPRESSION: No mammographic evidence of malignancy. Recommend routine screening mammography in one year. BI-RADS Category 1: Negative Reviewed, dictated and finalized at location .
--- OUTSIDE RECORDS SUMMARY | 2024-06-08 17:40 | XMS_ITS | Continuity of Care Document ---
Author Organization [facility] Address [address] [place] [address] Phone Care Team Providers Care Lead Trainer Name Role Phone Daniel Corrales MD Unavailable Unavailable Procedures Procedure Date Special Reports Or Forms Miscellaneous Advance Directives Directive Yes / No Effective Date File Name No Information Encounters Encounter Description Practice Location Reason(s) For Visit Diagnoses Date Provider Providers Copied on Encounter [facility], [address] [place], [place] [address] [address], [place], [place], [id number], tel:[phone] SEC [facility] No Information [address] [place], [id number], [place]. tel:[phone] [facility], [address] [place], [place] [address] [address], [place], [place], [id number], tel:[phone] SEC [facility] No Information [address] [facility] [place], [id number], [place]. tel:[phone] Family History Family Member Type Diagnosis Age At Onset No Information Payers Payer name Insurance type Covered constitution party ID Authoriza tion(s) No Information Social [...]
--- OUTSIDE RECORDS SUMMARY | 2024-06-08 17:41 | XMS_ITS | CONTINUITY OF CARE DOCUMENT ---
Author Name [email or web address] Address Unknown Organization [facility] Address [address] [place] [address] Phone [phone] Care Team Providers Care Rack Carrier Name Role Phone Aaron Conte MD Unavailable FLEX SANTOS MD Unavailable FLEX SANTOS MD Unavailable INSURANCE PROVIDERS Payer name Policy type / Coverage type [place] [employer] party ID UHC MEDICARE COMPLETE HMO Other [id number]
--- OUTSIDE RECORDS SUMMARY | 2024-06-08 17:41 | XMS_ITS | Patient Health Summary ---
Author Organization [facility] Jascha Address [address] [place] [address] Care Team Providers Care Fish Checker Name Role Phone Karrie Phillips MD Primary Care Provider [phone] Note from [facility],non-owned Affiliates and Associated Physician Practices is amultiple site organization consisting of ambulatory clinics and hospital sitesin [place], [place], [place] and [place]. This disclosure is being madepursuant to the Care Everywhere program and may not contain all information available regarding this patient. Last updated 17.[facility] Jascha Allergies * Cyclobenzaprine * Eggs * Fluoxetine [...] / 24 hours. * saline nasal spray ([place]is; Baby [place]) 0.65 % nasal spray(Started 02/19/2022) Wilson 1 (one) spray into each nostril as [...] and heating? Not hard at all 06/04/2022 [facility] of Occupat ional Health - Occupational Stress [...] 77 06/23/2022 12:32 PM CDT Temperature 36.4 C (97.5 F) 06/23/2022 12:32 PM CDT Respiratory Rate 18 06/23/2022 8:19 AM CDT Oxygen Saturation 99% 06/23/2022 12:32 PM CDT Inhaled Oxygen Concentration - - Weight 68.6 kg (151 lb 3.2 oz) 06/04/2023 2:02 P M FLOORHAND Height 154.9 cm (5' 1 ) 12/04/2022 2:47 PM CDT Body Mass Index 28.57 12/04/2022 2:47 PM CDT Medical Devices Implanted Type Area Hot Plate Press Operator Device Identifier Shelf Expiration Date Model / Serial / Lot Jean Bone Void 10ml Dbm Grftn Algrf Ptty Implanted:Qty: 1 on 06/04/2022 by Deon Taylor MD at [facility] N/A: Spine [employer] 05/04/2025 [id number] / / [id number] 90mm Rods Implanted:Qty: 2 on 06/04/2022 by Deon Taylor MD at [facility] N/A: Spine Synthes Spine [id number] / / Jean Bone Void 10ml Dbm Grftn Algrf Ptty Implanted:Qty: 1 on 06/04/2022 by Deon Taylor MD at [facility] N/A: Spine [employer] Inc 05/04/2025 [id number] / / [id number] Graft Bone Canc 4-9.5mm 15cc Frzdr Chp Implanted:Qty: 1 on 06/04/2022 by Deon Taylor MD at [facility] N/A: Spine [employer] 02/26/2027 [id number] / / [id number] Graft Bone Canc 4-9.5mm 30cc Algrf Frzdr Implanted:Qty: 1 on 06/04/2022 by Deon Taylor MD at [facility] N/A: Spine [employer] 12/27/2025 [id number] / / [id number] 3.5 X 14mm Screw Implanted:Qty: 4 on 06/04/2022 by Deon Taylor MD at [facility] N/A: Spine Synthes Spine [id number] / / 4.0x 20mm Screw Implanted:Qty: 2 on 06/04/2022 by Deon Taylor MD at [facility] N/A: Spine Synthes Spine [id number] / / 5.0 X 24mm Screw Implanted:Qty: 2 on 06/04/2022 by Deon Taylor MD at [facility] N/A: Spine [employer]ynthe[employer] Spine [id number] / / 4.5 X 26mm Screw Implanted:Qty: 2 on 06/04/2022 by Deon Taylor MD at [facility] N/A: Spine [employer]ynthes Spine [id number] / / Screw Caps Implanted:Qty: 10 on 06/04/2022 by Deon Taylor MD at [facility] N/A: Spine [employer]s Spine [id number] / / Procedures * XR CERVICAL SPINE [...] 06/21/2022) Performed for Coffee ground emesis * [place] ESOPHAGEAL CAPSULE ENDOSCOPY(Performed 06/21/2022) Performed for Coffee ground emesis * [place] ED EGD FLEX TRANSORAL DX(Performed 06/21/2022) Performed [...] closed fractures of facial bone, initial encounter ([facility]) * GLUCOSE - POINT OF CARE(Performed [...] SPINE 2 OR 3VW (06/04/2023 1:57 PM FLOORHAND) Only the most recent of7 resultswithin the time period is included. Anatomical Region Laterality Modality Spine Radiographic Vivian ging 06/04/2023 1:57 PM FLOORHAND Impressions 06/04/2023 2:28 PM FLOORHAND IMPRESSION: Redemonstration of posterior instrumented spinal fusion hardware of C4-T2 with unchanged alignment. Report dictated by Joey Herman MD, (residential care facility manager). I, Petar Spears MD have personally reviewed and interpreted this examination/study. > Interpreting Provider: Petar Spears MD on 06/04/2023 2:28 PM Narrative 06/04/2023 2:28 PM FLOORHAND PROCEDURE: XR CERVICAL SPINE 2 OR 3VW, DATE/TIME OF EXAM: 06/04/2023 1:57 PM, LOCATION [facility] INDICATION: Z98.1: S/P cervical [...] 3VW, DATE/TIME OF EXAM: 41:57 PM, LOCATION [facility] INDICATION: Z98.1: S/P cervical [...] Report dictated by Joey Herman MD, (residential care facility manager). I, Petar Spears MD have personally [...] AM Narrative 07/18/2022 11:31 AM CDT PROCEDURE: XR THORACIC SPINE 2VW, XR CERVICAL [...] MD on 07/18/2022 11:31 AM Lyla Blackwell BIBLE TEACHER-ETIQUETTE COACH DIAGNOSTIC IMAG ING ORDERABLES * (ABNORMAL) CBC W/O DIFFERENTIAL (06/23/2022 3:47 AM CDT) Only the most recent of11 resultswithin the time period is included. WBC 7.7 3.5 - 10.5 10 3/uL 06/23/2022 4:17 AM CDT [facility] RBC 2.66(L) 3.80 - 5.20 10 6/uL 06/23/2022 4:17 AM CDT [facility] Hemoglobin 8.0(L) 12.0 - 15.6 g/dL 06/23/2022 4:17 AM [facility] Hematocrit 24.2(L) 35.0 - 45.0 % 06/23/2022 4:17 AM [facility] MCV 91.0 80.7 - 98.3 fL 06/23/2022 4:17 AM [facility] MCH 30.1 26.7 - 34.0 pg 06/23/2022 4:17 AM [facility] MCHC 33.1 30.8 - 35.9 g/dL 06/23/2022 4:17 AM [facility] RDW-SD 45.0 36.0 - 50.0 fL 06/23/2022 4:17 AM [facility] RDW-CV 13.7 11.2 - 14.8 % 06/23/2022 4:17 AM [facility] Platelet Count 305 150 - 400 10 3/uL 06/23/2022 4:17 AM [facility] MPV 9.7 9.4 - 12.9 fL 06/23/2022 4:17 AM [facility] nRBC Absolute 0.00 0 10 3/uL 06/23/2022 4:17 AM [facility] nRBC Auto 0.0 0 /100 WBC 06/23/2022 4:17 AM [facility] Blood BLOOD SPECIMEN / Unknown Lab Venipuncture / Unknown 06/23/2022 3:47 AM CDT 06/23/2022 4:10 AM CDT Ori Iyer PA-C LAB - HEMATOLOGY OR DERABLES [facility] [address] [place] [phone], [facility] [phone] * (ABNORMAL) BASIC METABOLIC PANEL (CALCIUM TOTAL) (06/23/2022 3:06 AM CDT) Only the most recent of10 resultswithin the time period is included. BUN 10 7 - 26 mg/dL 06/23/2022 4:38 AM [facility] Creatinine 1.09(H) 0.56 - 0.96 mg/dL 06/23/2022 4:38 AM [facility] Sodium 131(L) 136 - 145 mmol/L 06/23/2022 4:38 AM [facility] Potassium 4.2 3.5 - 4.5 mmol/L 06/23/2022 4:38 AM [facility] Chloride 100 98 - 107 mmol/L 06/23/2022 4:38 AM [facility] CO2 22 22 - 29 mmol/L 06/23/2022 4:38 AM [facility] Glucose 111 70 - 115 mg/dL 06/23/2022 4:38 AM [facility] Calcium 8.2(L) 8.4 - 10.2 mg/dL 06/23/2022 4:38 AM [facility] Anion Gap 13 8 - 18 06/23/2022 4:38 AM [facility] BUN/Creatinine Ratio 9 7 - 23 06/23/2022 4:38 AM [facility] Osmolality Calculated 272 270 - 300 mOsm/kg 06/23/2022 4:38 AM [facility] eGFR by CKD-EPI 54(L) >=90 mL/min/1.7 3 m2 06/23/2022 4:38 AM [facility] Blood BLOOD SPECIMEN / Unknown Lab Venipuncture / Unknown 06/23/2022 3:06 AM CDT 06/23/2022 4:03 AM CDT Anabell Hernandez PA-C LAB - CHEMISTRY ORD ERABLES [facility] [address] [place] [address], [facility] [phone] * MAGNESIUM BLOOD (06/23/2022 3:06 AM CDT) Only the most recent of6 resultswithin the time period is included. Magnesium 2.3 1.6 - 2.6 mg/dL 06/23/2022 4:41 AM [facility] Blood BLOOD SPECIMEN / Unknown Lab Venipuncture / Unknown 06/23/2022 3:06 AM CDT 06/23/2022 4:03 AM CDT Anabell Hernandez PA-C LAB - CHEMISTRY ORD ERABLES Performing Organization Address City/[facility]/ZIP Co de Phone Number [address] [address], [facility] [phone] * GLUCOSE - POINT OF CARE (06/22/2022 4:11 PM CDT) Only the most recent of28 resultswithin the time period is included. Pathologist [facility] Glucose WB/POC 105 70 - 115 mg/dL 06/22/2022 4:12 PM CDT [facility] Specimen Type Arterial 06/22/2022 4:12 PM CDT [facility] Blood BLOOD SPECIMEN / Unknown 06/22/2022 4:11 PM CDT 06/22/2022 4:12 PM CDT Abeba Will DO LAB - POINT OF CARE ORDERABLES Performing Organization Address City/[facility]/ZIP Co de Phone Number [address] [address], [place] [phone] * (ABNORMAL) RENAL FUNCTION PANEL (06/22/2022 2:34 AM CDT) Only the most recent of2 resultswithin the time period is included. Pathologist [facility] BUN 13 7 - 26 mg/dL 06/22/2022 3:29 AM [facility] Creatinine 1.07(H) 0.56 - 0.96 mg/dL 06/22/2022 3:29 AM [facility] Sodium 132(L) 136 - 145 mmol/L 06/22/2022 3:29 AM T [facility] Potassium 3.8 3.5 - 4.5 mmol/L 06/22/2022 3:29 AM [facility] Chloride 99 98 - 107 mmol/L 06/22/2022 3:29 AM [facility] CO2 25 22 - 29 mmol/L 06/22/2022 3:29 AM T [facility] Glucose 126(H) 70 - 115 mg/dL 06/22/2022 3:29 AM T [facility] Albumin 2.8(L) 3.4 - 5.0 g/dL 06/22/2022 3:29 AM [facility] Calcium 8.5 8.4 - 10.2 mg/dL 06/22/2022 3:29 AM [facility] Phosphorus 2.8(L) 2.9 - 5.1 mg/dL 06/22/2022 3:29 AM [facility] Anion Gap 12 8 - 18 06/22/2022 3:29 AM [facility] BUN/Creatinine Ratio 12 7 - 23 06/22/2022 3:29 AM [facility] Osmolality Calculated 276 270 - 300 mOsm/kg 06/22/2022 3:29 AM [facility] eGFR by CKD-EPI 55(L) >=90 mL/min/1.7 3 m2 06/22/2022 3:29 AM [facility] Blood BLOOD SPECIMEN / Unknown Lab Venipuncture / Unknown 06/22/2022 2:34 AM CDT 06/22/2022 3:02 AM CDT Ori Iyer PA-C LAB - CHEMISTRY ORD ERABLES [facility] [address] [place] [phone], [facility] [phone] * CORTISOL BLOOD AM (06/22/2022 2:34 AM CDT) Only the most recent of4 resultswithin the time period is included. Cortisol AM 14.3 3.7 - 19.4 ug/dL 06/22/2022 3:49 AM T [facility] Blood BLOOD SPECIMEN / Unknown Lab Venipuncture / Unknown 06/22/2022 2:34 AM CDT 06/22/2022 3:02 AM CDT Narrative [facility] - 06/22/2022 3:49 AM CDT Normal cortisol levels are generally highest in the morning hours and lowest from late evening through the cashier host/hostess 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 The PM measurements of cortisol run approximately one-half to one-third of the AM values. Ori Iyer PA-C LAB - CHEMISTRY ORD ERABLES [facility] [place] [address], [facility] [phone] * PATHOLOGY TISSUE (06/21/2022 4:40 PM CDT) Case Report Surgical Pathology Report Case: [id number] Authorizing Provider: Carmen Morales MD Collected: 06/21/2022 04:40 PM Ordering Location: [facility] Received: 06/22/2022 08:59 AM Pathologist: Hansa Gusman MD Specimen: Small Bowel, small bowel biopsy r/o celiac 06/25/2022 2:27 PM CDT [facility] LAB Final Diagnosis Small intestine, small bowel, biopsy (A): - No histopathologic abnormality - Intact villous and crypt architecture without increased intraepithelial lymphocytes 06/25/2022 2:27 PM CDT [facility] Microscopic Description and Comment Microscopic examination substantiates the final diagnosis. 06/25/2022 2:27 PM CDT [facility] Clinical History The patient is a 72-year-old woman presented with coffee-ground emesis who underwent upper GI endoscopy. 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 Duodenal bulb erythema, biopsied for evaluation of celiac disease. 06/25/2022 2:27 PM CDT [facility] Gross Description The requisition and specimen(s) are identified with the patient's name Kandace Cole. Received in formalin, specimen A , are 5 pink-freeman tissues, 0.3-0.9 cm in greatest dimension and 2.3 x 0.3 x 0.2 cm in aggregate, submitted in toto in cassette A1. DF 06/25/2022 2:27 PM CDT [facility] Disclaimer The performance characteristics of all immunohistochemical and indirect immunofluorescence stains (if any) cited in this report were determined by the Histopathology Laboratory of [facility]. Some of these tests [...] attending (teaching) pathologist. 06/25/2022 2:27 PM CDT [facility] Embedded Images 06/25/2022 2:27 PM CDT [facility] Resection without Tumor SMALL BOWEL RESECTION SPECIMEN / Unknown 06/21/2022 4:40 PM CDT 06/22/2022 8:59 AM CDT Comment:Pre-op diagnosis: Coffee ground emesis Carmen Morales MD LAB - PATHOLOGY/CYTO LOGY ORDERABLES Performing Organization Address City/State/[facility] Phone Number [facility] LAB [address] [phone] * EGD (06/21/2022 4:24 PM CDT) Report Endoscopy POC Endoscopy Department Report __ _ Patient Name: Kandace Cole Procedure Date: 06/21/2022 4:24 PM Date of : 1950 Classification: Inpatient Gender: Female Ethnicity: Not or Race: White __ _ Providers: Evan Benson (Fellow) Referring MD: Procedure: Upper GI endoscopy Indications: Coffee-ground emesis Medications: Monitored Anesthesia Care Patient Profile: Patient with coffee ground emesis here for EGD Description of Procedure: After obtaining informed consent, the endoscope was passed under direct vision. Throughout the procedure, the patient's blood pressure, pulse, and oxygen saturations were monitored continuously. The [id number]-[id number] was introduced through the mouth, and advanced to the second part of duodenum. The upper GI endoscopy was accomplished without difficulty. The patient tolerated the procedure well. Findings: Esophagogastric landmarks were identified: the Z-line was found at 25 cm, the gastroesophageal junction was found at 34 cm and the site of hiatal narrowing was found at 38 cm from the incisors. There were esophageal mucosal changes secondary to established long-segment Ferrell's disease present in the lower third of the esophagus. The maximum longitudinal extent of these mucosal changes was 9 cm in length. No evidence of esophagitis. There was a 4cm hiatal hernia without Jeremy erosions. The exam of the esophagus was otherwise normal. The stomach was normal. The examined duodenum was notable for mild bulb erythema. Biopsies for histology were taken with a cold forceps for evaluation of celiac disease. Using the endoscope, the video capsule enteroscope was advanced and deployed into the duodenal bulb. Estimated Blood Loss: Estimated blood loss: none. Complications: No immediate complications. Impression: - Esophagogastric landmarks identified. 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 - Normal stomach. - Duondeal bulb erythema. Biopsied. - Successful completion of the Video Capsule Enteroscope placement. - No explanation for coffee ground emesis found Recommendation: - Return patient to hospital [facility] for ongoing care. - Clear liquids at 18:45, then light meal at 20:45 (tonight) - Further recs per inpatient team - Await biopsy results Attending Participation: I was present and participated during the entire procedure, including non-lee portions. Procedure Code(s): --- Professional --- 78866, Esophagogastroduode noscopy, flexible, transoral; with biopsy, single or multiple Diagnosis Code(s): --- Professional --- K22.70, Ferrell's esophagus without dysplasia K92.0, Hematemesis CPT copyright 2019 [employer]. All rights reserved. The codes documented in this report are preliminary and upon content publisher review may be revised to meet current compliance requirements. Carmen Morales, 06/21/2022 5:01:11 PM Note Initiated On: 06/21/2022 4:24 PM Number of Addenda: 0 [facility] [address] [place] [address] [facility] 06/21/2022 [...] is included. WBC 8.0 3.5 - 10.5 10 3/uL 06/21/2022 2:59 [facility] RBC 2.77(L) 3.80 - 5.20 10 6/uL 06/21/2022 2:59 AM [facility] Hemoglobin 8.3(L) 12.0 - 15.6 g/dL 06/21/2022 2:59 AM [facility] Hematocrit 25.9(L) 35.0 - 45.0 % 06/21/2022 2:59 AM [facility] MCV 93.5 80.7 - 98.3 fL 06/21/2022 2:59 AM T [facility] MCH 30.0 26.7 - 34.0 pg 06/21/2022 2:59 AM T [facility] MCHC 32.0 30.8 - 35.9 g/dL 06/21/2022 2:59 AM [facility] RDW-SD 46.8 36.0 - 50.0 fL 06/21/2022 2:59 AM [facility] RDW-CV 13.8 11.2 - 14.8 % 06/21/2022 2:59 AM [facility] Platelet Count 415(H) 150 - 400 10 3/uL 06/21/2022 2:59 AM [facility] MPV 9.6 9.4 - 12.9 fL 06/21/2022 2:59 AM [facility] nRBC Absolute 0.00 0 10 3/uL 06/21/2022 2:59 AM [facility] nRBC Auto 0.0 0 /100 WBC 06/21/2022 2:59 AM [facility] Neutrophils % 68.7 35.0 - 70.0 % 06/21/2022 2:59 AM [facility] Lymphocytes % 17.2(L) 20.0 - 43.0 % 06/21/2022 2:59 AM [facility] Monocytes % 10.7 5.0 - 13.0 % 06/21/2022 2:59 AM [facility] Eosinophils % 2.3 0.0 - 6.0 % 06/21/2022 2:59 AM [facility] Basophil % 0.6 0.0 - 2.0 % 06/21/2022 2:59 AM [facility] Neutrophils Absolute 5.47 1.60 - 7.00 10 3/uL 06/21/2022 2:59 AM [facility] Lymphocyte Absolute 1.37 1.10 - 3.90 10 3/uL 06/21/2022 2:59 AM [facility] Monocytes Absolute 0.85 0.26 - 1.07 10 3/uL 06/21/2022 2:59 AM [facility] Eosinophils Absolute 0.18 0.00 - 0.47 10 3/uL 06/21/2022 2:59 AM [facility] Basophils Absolute 0.05 0.00 - 0.08 10 3/uL 06/21/2022 2:59 AM [facility] Immature Granulocytes % 0.5 0.0 - 1.0 % 06/21/2022 2:59 AM [facility] Immature Granulocytes Absolute 0.04 06/21/2022 2:59 AM [facility] Blood BLOOD SPECIMEN / Unknown Lab Venipuncture / Unknown 06/21/2022 2:03 AM CDT 06/21/2022 2:39 AM CDT Deepa Georges MD LAB - HEMATOLOGY ORD ERABLES [facility] [address] [place] [address], [facility] [phone] * (ABNORMAL) COMPREHENSIVE METABOLIC PANEL (06/21/2022 2:03 AM CDT) Only the most recent of3 resultswithin the time period is included. BUN 14 7 - 26 mg/dL 06/21/2022 3:05 AM [facility] Creatinine 1.11(H) 0.56 - 0.96 mg/dL 06/21/2022 3:05 AM [facility] Sodium 134(L) 136 - 145 mmol/L 06/21/2022 3:05 AM [facility] Potassium 4.2 3.5 - 4.5 mmol/L 06/21/2022 3:05 AM [facility] Chloride 96(L) 98 - 107 mmol/L 06/21/2022 3:05 AM [facility] CO2 25 22 - 29 mmol/L 06/21/2022 3:05 AM [facility] Glucose 54(L) 70 - 115 mg/dL 06/21/2022 3:05 AM [facility] Calcium 9.5 8.4 - 10.2 mg/dL 06/21/2022 3:05 AM [facility] Protein Total 6.0 6.0 - 8.3 g/dL 06/21/2022 3:05 AM [facility] Albumin 3.3(L) 3.4 - 5.0 g/dL 06/21/2022 3:05 AM [facility] Bilirubin Total 0.7 0.2 - 1.2 mg/dL 06/21/2022 3:05 AM [facility] Alkaline Phosphatase 62 40 - 150 U/L 06/21/2022 3:05 AM [facility] ALT 10 5 - 55 U/L 06/21/2022 3:05 AM [facility] AST 15 5 - 34 U/L 06/21/2022 3:05 AM [facility] Anion Gap 17 8 - 18 06/21/2022 3:05 AM [facility] BUN/Creatinine Ratio 13 7 - 23 06/21/2022 3:05 AM [facility] Osmolality Calculated 276 270 - 300 mOsm/kg 06/21/2022 3:05 AM [facility] Albumin/Globulin Ratio 1.2 1.1 - 2.3 06/21/2022 3:05 AM [facility] eGFR by CKD-EPI 53(L) >=90 mL/min/1.7 3 m2 06/21/2022 3:05 AM [facility] Blood BLOOD SPECIMEN / Unknown Lab Venipuncture / Unknown 06/21/2022 2:03 AM CDT 06/21/2022 2:39 AM T Deepa Georges MD LAB - CHEMISTRY [facility] Organization Address City/State/ZIP Co de Phone Number [address] [address], [facility] [phone] * (ABNORMAL) URINALYSIS REFLEX TO MICROSCOPIC NO CULTURE (06/21/2022 12:50 AM [facility]) Only the most recent of2 resultswithin the time period is included. Color UA Yellow Straw, Yellow 06/21/2022 1:04 AM [facility] Clarity UA Clear Clear 06/21/2022 1:04 AM [facility] Specific [place] UA 1.048(H) 1.005 - 1.030 06/21/2022 1:04 AM [facility] pH UA 7.0 5.0 - 8.0 pH 06/21/2022 1:04 AM [facility] Protein UA Negative Negative 06/21/2022 1:04 AM [facility] Glucose UA Negative Negative 06/21/2022 1:04 AM [facility] Ketone UA 1+(A) Negative 06/21/2022 1:04 AM CDT [facility] Bilirubin UA Negative Negative 06/21/2022 1:04 AM CDT [facility] Blood UA Negative Negative 06/21/2022 1:04 AM T [facility] Nitrite UA Negative Negative 06/21/2022 1:04 AM T [facility] Leukocyte Esterase Trace(A) Negative 06/21/2022 1:04 AM CDT [facility] Urobilinogen UA Negative Negative mg/dL 06/21/2022 1:04 AM T [facility] RBC UA 0-2 None Seen, 0-2, 3-5 /HPF 06/21/2022 1:04 AM CDT [facility] WBC UA 0-5 None Seen, 0-5 /HPF 06/21/2022 1:04 AM T [facility] Squamous Epithelial Cells UA 0-2 None Seen, 0-2, 3-5 /HPF 06/21/2022 1:04 AM CDT [facility] Urine URINE SPECIMEN OBTAINED BY CLEAN CATCH PROCEDURE / Unknown Collection / Unknown 06/21/2022 12:50 AM CDT 06/21/2022 12:57 AM CDT Narrative [facility] - 06/21/2022 1:04 AM CDT Jacki Balbuena PA-C LAB - URINALYSIS OR DERABLES [facility] [address] [place] [address], [facility] [phone] * (ABNORMAL) HEMOGLOBIN (06/20/2022 10:18 PM CDT) Hemoglobin 8.5(L) 12.0 - 15.6 g/dL 06/20/2022 10:42 PM CDT [facility] Blood BLOOD SPECIMEN / Unknown Lab Venipuncture / Unknown 06/20/2022 10:18 PM CDT 06/20/2022 10:39 PM CDT Deepa Georges MD LAB - HEMATOLOGY ORD ERABLES [facility] [address] [place] [address], [facility] [phone] * B-TYPE NATRIURETIC PEPTIDE (06/20/2022 10:18 PM CDT) BNP 99 <100 pg/mL 06/20/2022 11:17 PM CDT [facility] Comment: A decision threshold of 100 pg/mL has been demonstrated to provide the maximal combination of sensitivity, specificity and predictive value for the diagnosis of congestive heart failure (CHF). Virtually all patients with no evidence of CHF have BNP values less than 100 pg/mL. A BNP value greater than 100 pg/mL is consistent with the diagnosis of CHF in the appropriate clinical setting. In a study of 693 patients (male and female) with diagnosed CHF, the following values were determined based on the NYHA functional classification system: NYHA Functional Class Mean Valule (pg/mL) % >100 pg/mL I 320 58.1 II 432 73.0 III 656 79.0 IV 1635 98.3 Blood BLOOD SPECIMEN / Unknown Lab Venipuncture / Unknown 06/20/2022 10:18 PM CDT 06/20/2022 10:38 PM CDT Deepa Georges MD LAB - CHEMISTRY CHELO QUIGLEY [facility] Organization Address City/State/ZIP Co de Phone Number [address] [address], [facility] [phone] * CT ANGIO ABDOMEN PELVIS (06/20/2022 5:05 [...] > Dictated by Sherlyn Hopkins DO (residential care facility manager). Chaim Narvaez have personally reviewed and interpreted this examination/study. > Interpreting Provider: Chaim Martins on 06/20/2022 10:47 PM Narrative 06/20/2022 10:47 PM CDT PROCEDURE: CT ANGIO ABDOMEN PELVIS, DATE/TIME OF EXAM: 06/20/2022 5:05 PM, LOCATION [facility] INDICATION: R10.12: Abdominal pain, [...] PELVIS, DATE/TIME OF EXAM: 06/20/2022 5:05PM, LOCATION [facility] INDICATION: R10.12: Abdominal pain, [...] > Dictated by Sherlyn Hopkins DO (residential care facility manager). Chaim Narvaez have personally reviewed and interpreted this examination/study. > Interpreting Provider: Chaim Martins on 06/20/2022 10:47 PM Adolph Mckinney MD CT ORDERABLES * XR CHEST 2VW (06/20/2022 3:02 PM CDT) Anatomical Region Laterality Modality Chest Radiographic Vivian ging 06/20/2022 3:13 PM CDT Narrative 06/20/2022 3:49 PM CDT PROCEDURE: XR CHEST 2VW, DATE/TIME OF EXAM: 06/20/2022 3:03 PM, LOCATION [facility] INDICATION: R06.02: Shortness of [...] Report dictated by Yasir Pierre MD (residential care facility manager). Haroldo Narvaez MD have personally reviewed and interpreted this examination/study. > Interpreting Provider: Haroldo Ball MD on 06/20/2022 3:49 PM Procedure Note Haroldo Ball MD - 03/22/2023 PROCEDURE: XR CHEST 2VW, DATE/TIME OF EXAM: 06/20/2022 3:03 PM, LOCATION [facility] INDICATION: R06.02: Shortness of [...] Report dictated by Yasir Pierre MD (residential care facility manager). I, Haroldo Ball MD have personally reviewed and interpreted this examination/study. > Interpreting Provider: Haroldo Ball MD on 06/20/2022 3:49 PM Adolph Mckinney MD DIAGNOSTIC IMAGING ORDERABLES * PT-INR [facility] (06/20/2022 2:05 PM CDT) PT 13.4 12.1 - 14.8 Seconds 06/20/2022 2:48 PM CDT [facility] LABORATORY [facility] INR 1.0 See Comment 06/20/2022 2:48 PM CDT [facility] Comment:The suggested therap eutic range for standard coumadin (warfarin) therapy is an INR of 2.0-3.0. For high-risk patients (Mechanical Mitral Valve Prosthesis, etc.), the suggested prophylactic therapeutic range is an INR of 2.5-3.5. Blood BLOOD SPECIMEN / Unknown Venipuncture / Unknown 06/20/2022 2:05 PM CDT 06/20/2022 2:07 PM CDT Adolph Mckinney MD LAB - COAGULATION ORDERABLES [facility] [address] [place] [address], [facility] [phone] * TYPE + SCREEN PANEL (06/20/2022 2:05 PM CDT) Only the most recent of3 resultswithin the time period is included. Pathologist [facility] Antibody Screen NEG 2:53 PM CDT [facility] BLOOD BANK LAB ABO Rh A POS 06/20/2022 2:53 PM CDT [facility] BLOOD BANK LAB Blood Bank BLOOD SPECIMEN / Unknown Venipuncture / Unknown 06/20/2022 2:05 PM CDT 06/20/2022 2:08 PM CDT Adolph Mckinney MD LAB - BLOOD BANK O RDERABLES [facility] BLOOD BANK LAB [address] [place] [address], [place] [phone] * LIPASE BLOOD (06/20/2022 2:05 PM CDT) Pathologist [facility] Lipase 18 8 - 78 U/L 06/20/2022 2:50 PM CDT [facility] Blood BLOOD SPECIMEN / Unknown Venipuncture / Unknown 06/20/2022 2:05 PM CDT 06/20/2022 2:23 PM CDT Narrative [facility] - 06/20/2022 2:50 PM CDT Lipase results from the Colindres Alinity analyzer may not be comparable with other methodologies. Adolph Mckinney MD LAB - CHEMISTRY OR DERABLES Performing Organization Address City/[facility]/ZIP Co de Phone Number [address] [address], [place] [phone] * LACTIC ACID BLOOD (06/20/2022 2:05 PM CDT) [facility] Lactic Acid-Stat 1.1 <=2.0 mmol/L 06/20/2022 2:48 PM CDT [facility] Blood BLOOD SPECIMEN / Unknown Venipuncture / Unknown 06/20/2022 2:05 PM CDT 06/20/2022 2:23 PM CDT Adolph Mckinney MD LAB - CHEMISTRY OR DERABLES [address] [place] [address], [facility] [phone] * TROPONIN-I HIGH SENSITIVE REFLEX 1HOUR (06/20/2022 1:05 PM CDT) [facility] Troponin I High Sensitive 8 <=14 ng/L 06/20/2022 1:59 PM CDT [facility] Delta Troponin I HS 06/20/2022 1:59 PM CDT [facility] Comment:Delta value intentio anil not calculated. Baseline to 1 hour specimen collection interval exceeded. Blood BLOOD SPECIMEN / Unknown Venipuncture / Unknown 06/20/2022 1:05 PM CDT 06/20/2022 1:23 PM CDT Jacki Balbuena PA-C LAB - CHEMISTRY ORD ERABLES Performing Organization Address City/[facility]/ZIP Co de Phone Number [address] [address], [facility] [phone] * TROPONIN-I HIGH SENSITIVE BASELINE + 1HR (06/20/2022 9:49 AM CDT) [facility] Troponin I High Sensitive 7 <=14 ng/L 06/20/2022 10:39 AM CDT [facility] Blood BLOOD SPECIMEN / Unknown Venipuncture / Unknown 06/20/2022 9:49 AM CDT 06/20/2022 9:55 AM CDT Jacki Balbuena PA-C LAB - CHEMISTRY ORD ERABLES [address] [address], [facility] [phone] * EKG 12-LEAD (06/20/2022 9:40 AM CDT) Only the most recent of2 resultswithin the time period is included. [facility] Ventricular Rate 88 BPM [facility] MUSE Atrial Rate 88 BPM [facility] MUSE P-R Interval 176 ms [facility] MUSE QRS Duration ms 70 ms [facility] MUSE Q-T Interval ms 348 ms [facility] MUSE QTC Calculation (Bezet) 421 ms [facility] MUSE Calculated P Dalton 75 degrees [facility] MUSE Calculated R Dalton 55 degrees [facility] MUSE Calculated T Dalton 74 degrees [facility] MUSE Interpretation EKG NORMAL SINUS RHYTHM NORMAL ECG WHEN COMPARED WITH ECG OF 15-FEB-2022 00:55, VENT. RATE HAS INCREASED by 15 bpm Confirmed by BRIEN KEARNS MD ([id number]) on 06/20/2022 1:46:36 PM [facility] MUSE 06/20/2022 9:40 AM CDT 06/20/2022 1:46 PM CDT Jacki Balbuena PA-C ECG ORDERABLES Performing Organization Address City/[facility]/ZIP Co de Phone Number [facility] MUSE * (ABNORMAL) PHOSPHORUS BLOOD (06/08/2022 2:13 AM FLOORHAND) Only the most recent of3 resultswithin the time period is included. [facility] Phosphorus 2.5(L) 2.9 - 5.1 mg/dL 06/08/2022 3:12 AM FLOORHAND [facility] Blood BLOOD SPECIMEN / Unknown Lab Venipuncture / Unknown 06/08/2022 2:13 AM FLOORHAND 06/08/2022 2:44 AM FLOORHAND Ama Gonzalez MD LAB - CHEMISTRY ORDERABLES Performing Organization Address City/[facility]/ZIP Co de Phone Number [address] [address], [facility] [phone] * TRANSFUSE RED BLOOD CELL LEUKOREDUCED UNIT(S) (06/06/2022 12:20 PM FLOORHAND) Ama Gonzalez MD NURSING - BLOOD PROD TRANSFUSION * PREPARE (CROSSMATCH) RBC UNIT(S), 1 Units (06/06/2022 9:36 AM FLOORHAND) Pathologist [facility] Unit Description AS1 LR PRBC [facility] BLOOD BANK LAB Unit ABO A [facility] BLOOD BANK LAB Unit Rh POS [facility] BLOOD BANK LAB Product Number [id number] [facility] B LOOD BANK LAB Unit Donor # [id number] [facility] BLOOD BANK LAB Unit Status transfused [facility] BLO OD BANK LAB Product Code [id number] [facility] BLO OD BANK LAB Blood Type Barcode 6200 [facility] BLOOD BANK LAB Expiration Date [id number] S BLOOD BANK LAB Blood Bank BLOOD SPECIMEN / Unknown 06/04/2022 6:44 AM FLOORHAND Ama Gonzalez MD LAB - BLOOD BANK ORDERABLES Performing Organization Address City/[facility]/ZIP Co de Phone Number [facility] BLOOD BANK LAB [address] [place] [address], [facility] [phone] * PTH INTACT W/O CALCIUM (06/06/2022 3:07 AM FLOORHAND) PTH Intact 72.1 8.0 - 77.0 pg/mL 06/06/2022 4:04 AM [facility] Blood BLOOD SPECIMEN / Unknown Lab Venipuncture / Unknown 06/06/2022 3:07 AM FLOORHAND 06/06/2022 3:32 AM FLOORHAND Deon Taylor MD LAB - CHEMISTRY CHELO QUIGLEY Performing Organization Address City/[facility]/ZIP Co de Phone Number [facility] [address] [place] [address], [facility] [phone] * HEMOGLOBIN A1C (06/06/2022 3:07 AM FLOORHAND) Only the most recent of2 resultswithin the [...] to evaluate metabolic control in patients. Reference: [place] [employer], Standards of Care in Diabetes -2020 In patients 70 years and older consider HbA1c target range of 7.0-7.5% (Reference: Oswaldo Liz et al. JAMDA. 2012) The Sebia assay for the measurement of HbA1c is a National Glycohemoglobin Standardization Program (NGSP) certified method. Blood BLOOD SPECIMEN / Unknown Lab Venipuncture / Unknown 06/06/2022 3:07 AM FLOORHAND 06/06/2022 3:28 AM FLOORHAND Ama Gonzalez MD LAB - CHEMISTRY ORDERABLES Performing Organization Address City/[facility]/ZIP Co de Phone Number [address] [address], [facility] [phone] * VITAMIN D 25-HYDROXY (06/06/2022 3:07 AM FLOORHAND) Vitamin D, 25 Hydroxy 53.0 30.0 - 80.0 ng/mL 06/06/2022 4:35 AM FLOORHAND [facility] Comment: The recommendations for 25-Hydroxy Vitamin D clinical decision points are as follows: Deficient: <20.0 ng/mL Insufficient: 20.0 - 29.9 ng/mL Sufficient: 30.0 - 100.0 ng/mL Potential Toxicity: >100 ng/mL Reference: The Endocrine Society Clinical Practice Guidelines. 2011 If the 25-Hydroxy Vitamin D results are inconsitent with clinical evidence, it is recommended that follow-up testing using a method such as LC/MS/MS be performed to confirm the result. Blood BLOOD SPECIMEN / Unknown Lab Venipuncture / Unknown 06/06/2022 3:07 AM FLOORHAND 06/06/2022 3:29 AM FLOORHAND Deon Taylor MD LAB - CHEMISTRY CHELO QUIGLEY [address] [address], [place] [phone] * FOLATE (06/06/2022 3:07 AM FLOORHAND) Folate 9.4 7.0 - 31.4 ng/mL 06/06/2022 4:35 AM FLOORHAND [facility] Blood BLOOD SPECIMEN / Unknown Lab Venipuncture / Unknown 06/06/2022 3:07 AM FLOORHAND 06/06/2022 3:29 AM FLOORHAND Ama Gonzalez MD LAB - CHEMISTRY ORDERABLES Performing Organization Address City/[facility]/ZIP Co de Phone Number [address] [address], [place] [phone] * VITAMIN B12 (06/06/2022 3:07 AM FLOORHAND) Vitamin B12 382 213 - 816 pg/mL 06/06/2022 4:35 AM [facility] Blood BLOOD SPECIMEN / Unknown Lab Venipuncture / Unknown 06/06/2022 3:07 AM FLOORHAND 06/06/2022 3:29 AM FLOORHAND Ama Gonzalez MD LAB - CHEMISTRY ORDERABLES Performing Organization Address [facility]/ZIP Co de Phone Number [address] [address], [place] [phone] * (ABNORMAL) IRON + TRANSFERRIN PANEL (06/06/2022 3:07 AM FLOORHAND) Iron 20(L) 40 - 150 ug/dL 06/06/2022 3:53 AM [facility] Transferrin 162(L) 174 - 382 mg/dL 06/06/2022 3:53 AM [facility] Transferrin Saturation % 10(L) 16 - 50 % 06/06/2022 3:53 AM [facility] TIBC Calculated 203(L) 240 - 450 ug/dL 06/06/2022 3:53 AM [facility] Blood BLOOD SPECIMEN / Unknown Lab Venipuncture / Unknown 06/06/2022 3:07 AM FLOORHAND 06/06/2022 3:25 AM FLOORHAND Ama Gonzalez MD LAB - CHEMISTRY ORDERABLES Performing Organization Address City/[facility]/ZIP Co de Phone Number [address] [address], [place] [phone] * FERRITIN (06/06/2022 3:07 AM FLOORHAND) Ferritin 94 13 - 204 ng/mL 06/06/2022 4:10 AM FLOORHAND [facility] Blood BLOOD SPECIMEN / Unknown Lab Venipuncture / Unknown 06/06/2022 3:07 AM FLOORHAND 06/06/2022 3:25 AM FLOORHAND Ama Gonzalez MD LAB - CHEMISTRY ORDERABLES Performing Organization Address [facility]/ZIP Co de Phone Number [facility] LABORATORY [facility] [address] [place] [address], [facility] [phone] * FL JOSÉ LUIS SURGERY (06/04/2022 11:30 AM FLOORHAND) Narrative [facility] RADIOLOGY - 06/04/2022 12:52 PM FLOORHAND Fluoroscopy was used for this exam in the OR. Please see the Operative report. Deon Taylor MD FLUOROSCOPY ORDERABL ES Performing Organization Address [facility]/ZIP Co de Phone Number [facility] RADIOLOGY * ETT LINE PERFORMABLE (06/04/2022 9:09 AM FLOORHAND) Narrative Marcos Rojas Anes Asst - 06/04/2022 9:09 AM FLOORHAND Marcos Rojas Anes Asst 06/04/2022 9:11 AM Endotracheal Tube Placement: Patient Location: OR. Intubation Event Date/Time: 06/04/2022 7:44 AM Procedure: intubation ([id number]). Procedure Section: Sedation: under general anesthesia. Indications [...] * ARTERIAL LINE PERFORMABLE (06/04/2022 9:08 AM FLOORHAND) Narrative Marcos Rojas Anes Asst - 06/04/2022 9:08 AM FLOORHAND Marcos Rojas Anes Asst 06/04/2022 9:08 AM Arterial Line Placement Procedure Note Patient Location: OR. Procedure: Arterial Line ([id number]). Procedure Section Indications: continuous blood pressure monitoring [...] procedure Provider #1: Marcos Rojas Anes Asst. Chilo Franklin MD GENERAL ANESTHESIA O RDERABLES * SODIUM URINE RANDOM (02/17/2022 2:08 PM FLOORHAND) Sodium Urine 55 Not Established mmol/L 02/17/2022 2:30 PM FLOORHAND [facility] Urine URINE SPECIMEN OBTAINED BY CLEAN CATCH PROCEDURE / Unknown Collection / Unknown 02/17/2022 2:08 PM FLOORHAND 02/17/2022 2:13 PM FLOORHAND Radha Flores PA-C LAB - URINE CHEM ISTRY ORDERABLES [address] [address], [facility] [phone] * OSMOLALITY URINE (02/17/2022 2:08 PM FLOORHAND) Osmolality Urine 234 50 - 1,200 mOsm/kg 02/17/2022 3:23 PM FLOORHAND [facility] Urine URINE SPECIMEN OBTAINED BY CLEAN CATCH PROCEDURE / Unknown Collection / Unknown 02/17/2022 2:08 PM FLOORHAND 02/17/2022 2:13 PM FLOORHAND Narrative [facility] - 02/17/2022 3:23 PM FLOORHAND QRY Radha Flores PA-C LAB - URINE CHEM ISTRY ORDERABLES Performing Organization Address [facility]/State/[facility] Co de Phone Number [facility] [address] [place] [address], [facility] [phone] * MRI CERVICAL SPINE WO CONTRAST (02/16/2022 7:19 PM FLOORHAND) Anatomical Region Laterality Modality Pelvis Magnetic Resonan ce 02/18/2022 1:46 PM FLOORHAND Impressions 02/18/2022 2:03 PM FLOORHAND IMPRESSION: 1. Degenerative changes of the spine [...] 02/18/2022 2:03 PM Narrative 02/18/2022 2:03 PM FLOORHAND PROCEDURE: MRI CERVICAL SPINE WO CONTRAST, DATE/TIME OF EXAM: 02/16/2022 7:20 PM, LOCATION [facility] INDICATION: M50.30: Degeneration of cervical intervertebral [...] CONTRAST, DATE/TIME OF EXAM:02/16/2022 7:20 PM, LOCATION [facility] INDICATION: M50.30: Degeneration of cervical intervertebral [...] TSH REFLEX FREE T4 (02/16/2022 7:57 AM FLOORHAND) Only the most recent of2 resultswithin the time period is included. TSH 1.522 0.350 - 4.940 uIU/mL 02/16/2022 9:01 AM FLOORHAND [facility] Blood BLOOD SPECIMEN / Unknown Lab Venipuncture / Unknown 02/16/2022 7:57 AM FLOORHAND 02/16/2022 8:15 AM FLOORHAND Dagoberto Ordoñez MD LAB - CHEMISTRY ORDERABLES [address] [address], [facility] [phone] * CT CERVICAL SPINE WO CONTRAST (02/15/2022 10:41 PM FLOORHAND) Anatomical Region Laterality Modality Spine Computed Tomogra phy 02/16/2022 2:09 AM FLOORHAND Impressions 02/16/2022 2:29 AM FLOORHAND IMPRESSION: 1.No acute fracture or traumatic malalignment [...] 02/16/2022 2:29 AM Narrative 02/16/2022 2:29 AM FLOORHAND PROCEDURE: CT CERVICAL SPINE WO CONTRAST, DATE/TIME OF EXAM: 02/15/2022 10:41 PM, LOCATION [facility] INDICATION: S02.92XA: Multiple closed fractures of facial bone, initial encounter ([facility]) ADDITIONAL CLINICAL INFORMATION: Ordering Provider Reason [...] CONTRAST, DATE/TIME OF EXAM:02/15/2022 10:41 PM, LOCATION [facility] INDICATION: S02.92XA: Multiple closed fractures of facial bone, initial encounter ([facility]) ADDITIONAL CLINICAL INFORMATION: Ordering Provider Reason [...] left C3-C5 facets, right C3-C4 facets, and C3-S6xngtvnk processes. DISCS: Osseous fusion of the C3-C5 [...] in moderate spinal canal stenosis at the C5-G2ilpdb and mild spinal canal stenosis at the C3-C4, C6-C7, and C7-T1 levels. 3.Severe bilateral neuroforaminal narrowing at the C5-C6 level. > Interpreting Provider: Barbara Wallace DR on 02/16/2022 2:29 AM Radha Flores PA-C CT ORDERABLES * SARS-COV-2 (COVID-19)+INFLU A+B PCR RAPID (02/15/2022 3:07 PM FLOORHAND) Pathologist [facility] COVID-19 PCR Not detected Not detected 02/16/20 3:59 PM FLOORHAND [facility] Influenza A Rapid WENDI Not Detected Not Detected 02/15/2022 3:59 PM FLOORHAND [facility] Influenza B WENDI Rapid Not Detected Not Detected 02/15/2022 3:59 PM FLOORHAND [facility] Microbiology SPECIMEN FROM NASOPHARYNGEAL STRUCTURE / Unknown Collection / Unknown 02/15/2022 3:07 PM FLOORHAND 02/15/2022 3:10 PM FLOORHAND Narrative [facility] - 02/15/2022 3:59 PM FLOORHAND Influenza assay performed by Nucleic Acid Amplification. Results do not exclude the possibility of a mixed viral infection. NOTE: Detecting and identifying specific viral nucleic acids from individuals exhibiting signs and symptoms of respiratory infection aids in the diagnosis of respiratory infection, if used in conjunction with other clinical and laboratory findings. The results of this test should not be used as the sole basis for diagnosis, treatment, or patient management decisions. This nucleic acid amplification assay performance was validated by [facility]. This test has been authorized by the Food and Drug administration (FDA)under an Emergency Use Authorization (EUA). This test has been validated [...] Burk MD LAB - MICROBIOLOGY O RDERABLES [address] [address], [facility] [phone] * VAS CAROTID DUPLEX BILATERAL (02/15/2022 1:56 PM FLOORHAND) Anatomical Region Laterality Modality Neck Intravascular Ul trasound 02/15/2022 12:0 2 PM FLOORHAND Narrative Procedure Note Adolph Pineda MD - 02/16/2022 Dagoberto Ordoñez MD VASCULAR LAB ORD ERABLES * ECHO COMPLETE (02/15/2022 11:27 AM FLOORHAND) Anatomical Region Laterality Modality Chest Echo 02/15/2022 10:2 8 AM FLOORHAND Narrative Procedure Note Corey Flowers MD - 02/15/2022 Dagoberto Ordoñez MD ECHOCARDIOGRAPHY RADIANT * TROPONIN I (02/14/2022 11:55 PM FLOORHAND) Troponin I 0.027 <0.032 ng/mL 02/15/2022 12:31 AM FLOORHAND [facility] LABORATORY [facility] Blood BLOOD SPECIMEN / Unknown Venipuncture / Unknown 02/14/2022 11:55 PM FLOORHAND 02/14/2022 11:58 PM FLOORHAND Justo Sparrow MD LAB - CHEMISTRY CHELO Villegas Organization Address City/State/ZIP Co de Phone Number [place] [address] [place] [address], [facility] [phone] * XR CHEST 1VW PORTABLE (02/14/2022 11:25 PM FLOORHAND) Anatomical Region Laterality Modality Chest Radiographic Vivian ging 02/14/2022 11:2 4 PM FLOORHAND Narrative 02/15/2022 9:10 AM FLOORHAND PROCEDURE: XR CHEST 1VW PORTABLE, DATE/TIME OF EXAM: 02/14/2022 11:25 PM, LOCATION [facility] INDICATION: R55: Syncope and collapse ADDITIONAL CLINICAL INFORMATION: Ordering Provider Reason For Exam: rule out rib fracutre with recent fall COMPARISON: None. FINDINGS/IMPRESSION: The patient is rotated to the right. There is no focal consolidation, pleural effusion, or pneumothorax. The cardiomediastinal silhouette is normal. Degenerative changes noted in the shoulder joint and there is superior migration of the right humeral head in relation to the glenoid. > Dictated by Sushil Herrear MD (residential care facility manager). Tony Narvaez MD have personally reviewed and interpreted this examination/study. > Interpreting Provider: Tony Hansen MD on 02/15/2022 9:10 AM Procedure Note Tony Hansen MD - 02/15/2022 PROCEDURE: XR CHEST 1VW PORTABLE, DATE/TIME OF EXAM: 02/14/2022 11:25PM, LOCATION [facility] INDICATION: R55: Syncope and collapse ADDITIONAL [...] > Dictated by Sushil Herrera MD (residential care facility manager). I, Tony Hansen MD have personally reviewed and interpreted this examination/study. > Interpreting Provider: Tony Hansen MD on 29:10 AM Justo Sparrow MD DIAGNOSTIC IMAGING O RDERABLES * MRI SPINE CERVICAL WITH AND WITHOUT CONTRAST (11/11/2009) Anatomical Region Laterality Modality Spine Other Dionisio Ryan MD MR ORDERABLES Care Teams Fish Checker Relationship Specialty Start Date End Date Karrie Phillips MD [address] [place] [address] PCP - General 03/13/22
--- OUTSIDE RECORDS SUMMARY | 2024-06-08 17:41 | XMS_ITS | Clinical Summary ---
Author Organization [facility] Address [address] [place] [address] Care Team Providers Care Professor Of Mathematics Name Role Phone None, Provider MD Primary Care Provider Unavaila ble Allergies Active [...] Comments Blood Pressure 102/68 05/27/2022 1:18 PM ONCOLOGY NURSE NAVIGATOR Pulse 70 05/27/2022 1:18 PM ONCOLOGY NURSE NAVIGATOR Temperature 36.8 C (98.3 F) 05/27/2022 1:18 PM ONCOLOGY NURSE NAVIGATOR Respiratory Rate 18 05/27/2022 1:18 PM ONCOLOGY NURSE NAVIGATOR Oxygen Saturation 100% 05/27/2022 1:18 PM ONCOLOGY NURSE NAVIGATOR Inhaled Oxygen Concentration - - Weight 64.7 kg (142 lb 10.2 oz) 05/27/2022 1:18 PM ONCOLOGY NURSE NAVIGATOR Height 154.9 cm (5' 1 ) 05/27/2022 1:18 PM ONCOLOGY NURSE NAVIGATOR Body Mass Index 26.95 05/27/2022 1:18 PM ONCOLOGY NURSE NAVIGATOR Plan of Treatment Health Maintenance Due Date Last Done Comments Colorectal Cancer Screening Colonoscopy (10 Years) 1950 Hepatitis C 02/12/1968 Mammogram Screening 1990 Annual Medicare Wellness Visit 2015 Dexa Scan (General) 2015 DTaP, Tdap and Td Vaccines (2 - Tdap) 07/17/2021 07/18/2011 COVID-19 Vaccine ( season) 2023 01/25/2021, 06/03/2020 Influenza Adult (#1) 2023 12/09/2019, 12/08/2019, 01/25/2019, Additional history exists RSV Immunization or 60+ Years (1 - 1-dose 75+ series) 2025 Zoster Vaccines Completed 03/18/2019, 01/12/2019 Pneumococcal Vaccine: 65+ Years Completed 07/01/2019, 06/30/2018 Meningococcal B Vaccine Aged Out No l onger eligible based on patient's age to complete this topic Meningococcal Vaccine Aged Out No tiaan nohemy eligible based on patient's age to complete this topic RSV Immunizations Under 20 Months Aged Out No longer eligible based on patient's age to complete this topic Insurance Care Teams Professor Of Mathematics Relationship Specialty Start Date End Date None, Provider, PCP - General UNKNOWN PHYSICIAN SPECIALTY 05/27/22
--- OUTSIDE RECORDS SUMMARY | 2024-06-08 17:41 | XMS_ITS | Referral Summary ---
Author Organization [facility] Address [address] [place] [address] Care Team Providers Care Menhaden Vessel Pilot Name Role Phone Karrie Phillips MD Primary Care Provider [phone] Source Comments [facility],non-owned Affiliates and Associated Physician Practices is amultiple site organization consisting of ambulatory clinics and hospital sitesin [place], [place], [place] and [place]. This disclosure is being madepursuant to the Care Everywhere program and may not contain all information available regarding this patient. Last updated 17.[facility] Allergies Active Allergy Reactions Criticality Noted Date [...] 24 hours. 02/19/2022 Active saline nasal spray (Underwood; Baby Dolph) 0.65 % nasal spray [place] 1 (one) spray into each nostril as [...] and heating? Not hard at all 06/04/2022 [facility] [place] of Occupat ional Health - Occupational Stress [...] lb 3.2 oz) 06/04/2023 2:02 P M ELECTRICIAN FRONT Height 154.9 cm (5' 1 ) 12/04/2022 [...] concentrating/remembering/making decisions? No 06/04/2022 Plan of Treatment Not on file Medical Devices Implanted Type Area Bpo Specialist Device Identifier Shelf Expiration Date Model / Serial / Lot Jean Bone Void 10ml Dbm Grftn Algrf Ptty Implanted:Qty: 1 on 06/04/2022 by Deon Taylor MD at [facility] N/A: Spine Med[employer] Inc 05/04/2025 [id number] / / [id number] 90mm Rods Implanted:Qty: 2 on 06/04/2022 by Deon Taylor MD at [facility] N/A: Spine Synthes Spine [id number] / / Jean Bone Void 10ml Dbm Grftn Algrf Ptty Implanted:Qty: 1 on 06/04/2022 by Deon Taylor MD at [facility] N/A: Spine Medtronic Inc 05/04/2025 [id number] / / [id number] Graft Bone Canc 4-9.5mm 15cc Frzdr Chp Implanted:Qty: 1 on 06/04/2022 by Deon Taylor MD at [facility] N/A: Spine Allosource 02/26/2027 [id number] / / [id number] Graft Bone Canc 4-9.5mm 30cc Algrf Frzdr Implanted:Qty: 1 on 06/04/2022 by Deon Taylor MD at [facility] N/A: Spine Allosource 12/27/2025 [id number] / / [id number] 3.5 X 14mm Screw Implanted:Qty: 4 on 06/04/2022 by Deon Taylor MD at [facility] N/A: Spine Synthes Spine [id number] / / 4.0x 20mm Screw Implanted:Qty: 2 on 06/04/2022 by Deon Taylor MD at [facility] N/A: Spine Synthes Spine [id number] / / 5.0 X 24mm Screw Implanted:Qty: 2 on 06/04/2022 by Deon Taylor MD at [facility] N/A: Spine Synthes Spine [id number] / / 4.5 X 26mm Screw Implanted:Qty: 2 on 06/04/2022 by Deon Taylor MD at [facility] N/A: Spine Synthes Spine [id number] / / Screw Caps Implanted:Qty: 10 on 06/04/2022 by Deon Taylor MD at [facility] N/A: Spine Synthes Spine [id number] / / Procedures Procedure Name Priority Date/Time Associated Diagnosis Comments BASIC METABOLIC PANEL (CALCIUM TOTAL) AM Draw 06/23/2022 3:06 AM T Coffee ground emesis HEMOGLOBIN A1C Routine 06/06/2022 3:07 AM ELECTRICIAN FRONT from Last 3 Months or Most Recently Relevant to Health Maintenance Results * (ABNORMAL) BASIC METABOLIC PANEL (CALCIUM TOTAL) (06/23/2022 3:06 AM T) BUN 10 7 - 26 mg/dL 06/23/2022 4:38 AM [facility] Creatinine 1.09(H) 0.56 - 0.96 mg/dL [...] Hernandez PA-C LAB - CHEMISTRY ORD ERABLES [facility] [address] [place] [address], [facility] [phone] * HEMOGLOBIN A1C (06/06/2022 3:07 AM [facility]) Hemoglobin A1c 5.3 <=5.6 % 06/06/2022 3:38 PM [facility] Estimated Average Glucose 105 mg/dL 06/06/2022 3:38 PM [facility] Comment: HbA1c Interpretation: Normal : < 5.7% Pre-diabetes: 5.7-6.4% Diabetes: Equal to or greater than 6.5% Test results diagnostic of diabetes should be repeated for confirmation. Treatment target values recommended by ADA and other clinical organizations should be used to evaluate metabolic control in patients. Reference: [place] Diabetes Association, Standards of Care in Diabetes -2020 In patients 70 years and older consider HbA1c target range of 7.0-7.5% (Reference: Oswaldo Liz et al. JAMDA. 2012) The Sebia assay for the measurement of HbA1c is a National Glycohemoglobin Standardization Program (NGSP) certified method. Blood BLOOD SPECIMEN / Unknown Lab Venipuncture / Unknown 06/06/2022 3:07 AM ELECTRICIAN FRONT 06/06/2022 3:28 AM ELECTRICIAN FRONT Ama Gonzalez MD LAB - CHEMISTRY ORDERABLES Performing Organization Address City/[facility]/ZIP Co de Phone Number [facility] [address] [place] [address], [facility] [phone] from Last 3 Months or Most Recently Relevant to Health Maintenance Advance Directives * Full Code (Latest Code Status on File) Date Activated Date Inactivated Comments 06/20/2022 6:09 PM 06/23/2022 5:59 PM * Full Code Date Activated Date Inactivated Comments 06/04/2022 1:16 PM 06/08/2022 11:04 PM * Full Code Date Activated Date Inactivated Comments 02/15/2022 5:44 AM 02/19/2022 3:38 PM Care Teams Menhaden Vessel Pilot Relationship Specialty Start Date End Date Karrie Phillips MD [address] [place] [address] PCP - General 03/13/22
--- OUTSIDE RECORDS SUMMARY | 2024-06-08 17:41 | XMS_ITS | Encounter Summary ---
Author Organization [facility] Address [address] [place] [address] Care Team Providers Care Technologies Division Chair Name Role Phone Cheri Calderon NP Primary Care Provider [phone] Encounter Details Date Type Department Care Team (Late st Contact Info) Description 06/03/2024 Results Follow-Up [facility] Family Medicine [address] [place] [address] Cheri Calderon, NEAL [address] [place] [address] Social History Tobacco Use Types Packs/Day Years Used Date Smoking Tobacco: Never Smokeless Tobacco: Never Alcohol Use Standard Drinks/Week Comments Never 0 (1 standard drink = 0.6 oz pur e alcohol) AUDIT-C Answer Date Recorded Frequency of Alcohol Consumption Never 02/23/2019 Average Number of Drinks Not on file 019 Frequency of Binge Drinking Not on file 01/31 PHQ-2 Answer Date Recorded PHQ-2 Total Score (If total score is 3 or more points, staff should administer the PHQ-9) 1 05/12/2024 Comments Unknown Sex and Gender Information Value Date Recorded Sex Assigned at Not on file Legal Sex Female 8:14 PM STEAM TANK OPERATOR Gender Identity Not on file Sexual Orientation Not on file documented as of this encounter Plan of Treatment Not on file documented as of this encounter Visit Diagnoses Not on filedocumented in this encounter Care Teams Technologies Division Chair Relationship Specialty Start Date End Date Cheri Calderon, NEAL [address] [address] PCP - General Internal Medicine 05/11/24 documented as of this encounter
--- OUTSIDE RECORDS SUMMARY | 2024-06-08 17:41 | XMS_ITS | Referral Summary ---
Author Organization [facility] [address] [place] [address] [place] [address] Care Team Providers Care Railcar Brake Operator Name Role Phone Cheri Calderon NP Primary Care Provider [phone] Encounters Date Type Department Care Team Description 06/03/2024 Results Follow-Up [facility] Family Medicine [address] [place] [phone] Cheri Calderon NP 05/12/2024 10:30 AM REAL ESTATE MANAGEMENT SPECIALIST Office Visit [facility] Internal Medicine at [place] [address] [place] [phone] Cheri Calderon NP Physical exam, annual (Primary Dx); Hypertension associated with diabetes (HCC); BMI 30.0-30.9,adult; Obesity (BMI 30-39.9); Type 2 diabetes mellitus with hyperlipidemia (HCC); Breast cancer screening by mammogram; Longstanding persistent atrial fibrillation (HCC) 05/11/2024 10:00 AM REAL ESTATE MANAGEMENT SPECIALIST Office Visit [facility] Medical [facility] Cardiology [address] [place] [address] Rhea Torres NP Paroxysmal atrial fibrillation (HCC) (Primary Dx); History of GI bleed; Hospital discharge follow-up; Edema, lower extremity; Primary hypertension; Mixed hyperlipidemia; Stage 4 chronic kidney disease (HCC) 04/22/2024 Orders Only [facility] Cardiology [address] [place] [address] Roxanna Sethi MD from Last 3 Months Allergies Active Allergy [...] 0.005 % ophthalmic solution daily [address] (PROTONIX) 40 mg EC tablet Take 1 tablet (40 mg total) by mouth daily Active pravastatin (PRAVACHOL) 40 mg tablet Take 1 tablet (40 mg total) by mouth daily Active cholecalcifero l (VITAMIN D-3) 2000 unit tablet Take 1 tablet (2,000 Units total) by mouth 2 (two) times a day Active cyanocobalamin (Vitamin B-12) 500 mcg tabletIndicati ons:Prevention of Vitamin B12 Deficiency Take 1 tablet (500 mcg total) by mouth daily Active escitalopram (LEXAPRO) 20 mg tablet Take 1 tablet (20 mg total) by mouth daily 2 Active calcitRIOL (ROCALTROL) 0.25 mcg capsule Take 1 capsule (0.25 mcg total) by mouth 3 (three) times a week Active citalopram (CeleXA) 40 mg tablet 3 Active polyvinyl alcohol (LIQUIFILM TEARS) 1.4 % ophthalmic solution Administer 1 drop into affected eye(s) every 4 (four) hours as needed 2 Active vitamins A,C,E-zinc-copy machine operator per (PreserVision AREDS) 2,148 mcg-113 mg-45 mg-17.4mg tablet 1 tablet Active allopurinoL (ZYLOPRIM) 100 mg tablet Take 1 tablet (100 mg total) by mouth daily 4 Active amLODIPine (NORVASC) 5 mg tablet Take 1 tablet (5 mg total) by mouth every morning 5 Active carvediloL (COREG) 12.5 mg tablet Take 1 tablet (12.5 mg total) by mouth 2 (two) times a day 4 Active QUEtiapine XR (SEROquel XR) 50 mg tablet extended release 24 hr Take 2 tablets (100 mg total) by mouth nightly 4 Active furosemide (LASIX) 20 mg tabletIndicati ons:Edema, lower extremity Take 1 tablet (20 mg total) by mouth daily for 10 days, THEN 1 tablet (20 mg total) every other day. One pill every other day. 190 tablet 5 05/21/19 26 Active semaglutide (OZEMPIC) 0.25 mg or 0.5 mg (2 mg/3 mL) pen injector injectionIndic ations:Hyperte nsion associated with diabetes (HCC) Inject 0.5 mg under the skin every 7 days 3 mL 1 5 Active meclizine (ANTIVERT) 25 mg tablet Take 1 tablet (25 mg total) by mouth 3 (three) times a day as needed for dizziness 30 tablet 3 5 Active furosemide (LASIX) 20 mg tablet Take 1 tablet (20 mg total) by mouth every other day One pill every other day 05/11/19 25 Discontinu ed(Reorder ) LISINOPRIL ORAL Take 10 mg by mouth daily 05/12/19 25 Discontinu ed(Alterna te therapy) carvedilol (COREG) 6.25 mg tablet Take 1 tablet (6.25 mg total) by mouth 2 (two) times a day 05/11/19 25 Discontinu ed(Alterna te therapy) Bydureon BCise 2 mg/0.85 mL auto-injector 1 05/12/19 25 Discontinu ed(Alterna te therapy) QUEtiapine XR (SEROquel XR) 200 mg 24 hr tablet Take 1 tablet (200 mg total) by mouth nightly 0 05/11/19 25 Discontinu ed(Alterna te therapy) meclizine (ANTIVERT) 25 mg tablet Take 1 tablet (25 mg total) by mouth 3 (three) times a day as needed for dizziness 2 05/12/19 25 Discontinu ed(Reorder ) Active Problems Problem Noted Date Diagnosed Date Obesity (BMI 30-39.9) 05/12/2024 Assessment & Plan (05/12/2024 10:46 AM REAL ESTATE MANAGEMENT SPECIALIST): Discussed the patients BMI: The BMI is above average BMI management is complete. BMI follow-up includes: Nutrition Counseling and education provided Physical exam, annual 05/12/2024 Atrial fibrillation 05/11/2024 Abdominal pain 12/07/2021 Abnormal serum creatinine level [...] neuropathy 03/30/2019 Dyspnea on exertion 02/23/2019 Hypertension associated with diabetes 02/23/2019 Assessment & Plan (05/12/2024 11:22 AM REAL ESTATE MANAGEMENT SPECIALIST): This is a significant, separately identifiable problem that was evaluated and managed on the same day as the wellness exam Mixed hyperlipidemia 02/23/2019 Type 2 diabetes mellitus with hyperlipidemia Degeneration of cervical intervertebral disc 12/2009 Immunizations Immunization Administration Dates Next Due DTP 07/18/2011 Influenza, Quadrivalent, Hig h Dose, Preservative Free, Intrr 12/08/2019 Influenza, Quadrivalent, Spl it, Intramuscular 12/09/2019,12/30/2018 Influenza, Trivalent, High D ose, Split, Preservative Free, Intramuscular 01/25/2019 Influenza, Unspecified 04/01/2024(Deferr ed: Patient Refused),04/01/2023(Deferred: Patient Refused) jellyfish (J&J) SARS-CoV-2 Vaccination 06/08/2020 Pneumococcal Conjugate PCV [...] on file Legal Sex Female 8:14 PM REAL ESTATE MANAGEMENT SPECIALIST Gender Identity Not on file Sexual Orientation Not on file Last Filed Vital Signs Vital Sign Reading Time Taken Comments Blood Pressure 122/58 05/12/2024 10:49 AM REAL ESTATE MANAGEMENT SPECIALIST Pulse 68 05/12/2024 10:49 AM REAL ESTATE MANAGEMENT SPECIALIST Temperature 36.6 C (97.9 F) 05/12/2024 10:49 AM REAL ESTATE MANAGEMENT SPECIALIST Respiratory Rate - - Oxygen Saturation 97% 05/12/2024 10:49 AM REAL ESTATE MANAGEMENT SPECIALIST Inhaled Oxygen Concentration - - Weight 70.8 kg (156 lb) 05/12/2024 10:49 AM REAL ESTATE MANAGEMENT SPECIALIST Height 177.8 cm (5' 10 ) 05/12/2024 10:49 AM REAL ESTATE MANAGEMENT SPECIALIST Body Mass Index 22.38 05/12/2024 10:49 AM REAL ESTATE MANAGEMENT SPECIALIST Plan of Treatment Not on file Procedures Procedure Name Priority Date/Time Associated Diagnosis Comments LIPID PANEL Routine 06/02/2024 10:33 AM REAL ESTATE MANAGEMENT SPECIALIST Type 2 diabetes mellitus with hyperlipidemia (HCC) HEMOGLOBIN A1C Routine 06/02/2024 10:33 AM REAL ESTATE MANAGEMENT SPECIALIST Hypertension associated with diabetes (HCC) Type 2 diabetes mellitus with hyperlipidemia (HCC) COMPREHENSIVE METABOLIC PANEL Routine 06/02/2024 10:33 AM REAL ESTATE MANAGEMENT SPECIALIST Hypertension associated with diabetes (HCC) ALBUMIN CREATININE RATIO, URINE Routine 06/02/2024 10:33 AM REAL ESTATE MANAGEMENT SPECIALIST Hypertension associated with diabetes (HCC) CARDIOLOGY DOCUMENT SCAN Routine 04/14/2024 8:15 AM REAL ESTATE MANAGEMENT SPECIALIST from Last 3 Months Results * (ABNORMAL) Albumin Creatinine Ratio, Urine (06/02/2024 10:33 AM REAL ESTATE MANAGEMENT SPECIALIST) Creatinine, ur 160 20 - 275 mg/dL [facility] Microalbumin, ur 5.9 See Note: mg/dL [facility] Comment: Reference Range: Reference Range Not established Microalbumin/creat ratio 37(H) <30 mg/g creat [facility] Comment: The ADA defines abnormalities in albumin excretion as follows: Albuminuria Category Result (mg/g creatinine) Normal to Mildly increased <30 Moderately increased 30-299 Severely increased > OR = 300 The ADA recommends that at least two of three specimens collected within a 3-6 month period be abnormal before considering a patient to be within a diagnostic category. Urine 06/02/2024 10:3 3 AM REAL ESTATE MANAGEMENT SPECIALIST 06/02/2024 10:33 AM REAL ESTATE MANAGEMENT SPECIALIST Narrative [facility] - 06/03/2024 6:08 AM REAL ESTATE MANAGEMENT SPECIALIST FASTING:YES FASTING: YES us Cheri Calderon NP LAB URINE ORDERABLES Final Re sult [facility] [address] [place] [address] * Hemoglobin A1c (06/02/2024 10:33 AM REAL ESTATE MANAGEMENT SPECIALIST) Pathologist [facility] Hgb A1C 5.5 <5.7 % of total Hgb [facility] Comment: For the purpose of screening for the presence of diabetes: <5.7% Consistent with the absence of diabetes 5.7-6.4% Consistent with increased risk for diabetes (prediabetes) > or =6.5% Consistent with diabetes This assay result is consistent with a decreased risk of diabetes. Currently, no consensus exists regarding use of hemoglobin A1c for diagnosis of diabetes in children. According to [place] Diabetes Association (ADA) guidelines, hemoglobin A1c <7.0% represents optimal control in non- diabetic patients. Different metrics may apply to specific patient populations. Standards of Medical Care in Diabetes(ADA). Blood 06/02/2024 10:3 3 AM REAL ESTATE MANAGEMENT SPECIALIST 06/02/2024 10:33 AM REAL ESTATE MANAGEMENT SPECIALIST Narrative [facility] - 06/03/2024 6:08 AM REAL ESTATE MANAGEMENT SPECIALIST FASTING:YES FASTING: YES Cheri Calderon NP LAB BLOOD ORDERABLES Final Re sult [facility] [address] [place] [address] * (ABNORMAL) Lipid panel (06/02/2024 10:33 AM REAL ESTATE MANAGEMENT SPECIALIST) [facility] [address] Cholesterol 129 <200 mg/dL [facility] HDL 38(L) > OR = 50 mg/dL [facility] Triglycerides 159(H) <150 mg/dL [facility] LDL 67 mg/dL (calc) [facility] Comment: Reference range: <100 Desirable range <100 mg/dL for primary prevention; <70 mg/dL for patients with CHD or diabetic patients with > or = 2 CHD risk factors. LDL-C is now calculated using the Harpreet-Memo calculation, which is a validated novel method providing better accuracy than the Friedewald equation in the estimation of LDL-C. Harpreet GARCIAS et al. EVELYNE. 2013;310(19): 5182-8089 (http://education.Skimlinks/faq/MAV794) Chol/HDL ratio 3.4 <5.0 (calc) [facility] Non-HDL, (LDL+VLDL) 91 <130 mg/dL (calc) [facility] Comment: For patients with diabetes plus 1 major ASCVD risk factor, treating to a non-HDL-C goal of <100 mg/dL (LDL-C of <70 mg/dL) is considered a therapeutic option. Blood 06/02/2024 10:3 3 AM REAL ESTATE MANAGEMENT SPECIALIST 06/02/2024 10:33 AM REAL ESTATE MANAGEMENT SPECIALIST Narrative [facility] - 06/03/2024 6:08 AM REAL ESTATE MANAGEMENT SPECIALIST FASTING:YES FASTING: YES us Cheri Calderon STEEL ROLLER LAB BLOOD ORDERABLES Final Re sult [facility] [address] [place] [address] * (ABNORMAL) Comprehensive metabolic panel (06/02/2024 10:33 AM REAL ESTATE MANAGEMENT SPECIALIST) Glucose 159(H) 65 - 99 mg/dL [facility] Comment: Fasting reference interval For someone without known diabetes, a glucose value >125 mg/dL indicates that they may have diabetes and this should be confirmed with a follow-up test. BUN 14 7 - 25 mg/dL [facility] Creatinine 1.50(H) 0.60 - 1.00 mg/dL [facility] eGFR 36(L) > OR = 60 mL/min/1.7 3m2 [facility] BUN/creat ratio 9 6 - 22 (calc) [facility] Sodium 136 135 - 146 mmol/L [facility] Potassium, pl 4.0 3.5 - 5.3 mmol/L [facility] Chloride 97(L) 98 - 110 mmol/L [facility] CO2 32 20 - 32 mmol/L [facility] Calcium 9.8 8.6 - 10.4 mg/dL [facility] Protein, sr 6.5 6.1 - 8.1 g/dL [facility] Albumin 4.2 3.6 - 5.1 g/dL [facility] GLOBULIN 2.3 1.9 - 3.7 g/dL (calc) [facility] Niraj Alb/glob ratio 1.8 1.0 - 2.5 (calc) [facility] Bilirubin, total 0.8 0.2 - 1.2 mg/dL [facility] Alk phos 64 37 - 153 U/L [facility] AST 15 10 - 35 U/L [facility] ALT (SGPT) 9 6 - 29 U/L [facility] Blood 06/02/2024 10:3 3 AM REAL ESTATE MANAGEMENT SPECIALIST 06/02/2024 10:33 AM REAL ESTATE MANAGEMENT SPECIALIST Narrative [facility] - 06/03/2024 6:08 AM REAL ESTATE MANAGEMENT SPECIALIST FASTING:YES FASTING: YES us Cheri Calderon NP LAB BLOOD ORDERABLES Final Re sult [facility] [address] [place] [address] * Cardiology Document Scan (04/14/2024 8:15 AM REAL ESTATE MANAGEMENT SPECIALIST) Anatomical Region Laterality Modality Other us Roxanna Sethi MD CV CARDIAC SERVICES PRO CEDURES Final Result from Last 3 Months Insurance MEDICARE SOL[employer] [facility] HMO REF [facility] REF Care Teams Railcar Brake Operator Relationship Specialty Start Date End Date Cheri Calderon NP [address] [facility] [address] [place] [address] PCP - General Internal Medicine 05/11/24
--- OUTSIDE RECORDS SUMMARY | 2024-06-08 17:41 | XMS_ITS | Clinical Summary ---
Author Organization [facility] Address [address] [facility] [place] [address] Care Team Providers Care Vegetable Cook Name Role Phone Karrie Phillips MD Primary Care Provider [phone] Source Comments [facility],non-owned Affiliates and Associated Physician Practices is amultiple site organization consisting of ambulatory clinics and hospital sitesin [place], [place], [place] and [place]. This disclosure is being madepursuant to the Care Everywhere program and may not contain all information available regarding this patient. Last updated 17.[facility] Allergies Active Allergy Reactions Criticality Noted Date [...] 24 hours. 02/19/2022 Active saline nasal spray (Merom; Baby [place]) 0.65 % nasal spray [place] 1 (one) spray into each nostril [...] hard at all 06/04/2022 [facility] [place] of Occupat ional Health - Occupational Stress [...] lb 3.2 oz) 06/04/2023 2:02 P M HYDRAULIC MODELING ENGINEER Height 154.9 cm (5' 1 ) 12/04/2022 2:47 PM CDT Body Mass Index 28.57 12/04/2022 2:47 PM CDT Plan of Treatment Health Maintenance [...] 06/22/2022, 06/21/2022, Additional history exists COVID-19 VACCINE ( season) 2023 06/08/2020 INFLUENZA VACCINE (#1) 2023 , 12/08/2019, 01/25/2019, Additional history exists DIABETES RETINOPATHY SCREENING 02/17/2024 02/16/2022, 02/15/2022 DEPRESSION SCREENING 04/01/2024 DIABETES - URINE PROTEIN SCREENING 04/01/2024 MEDICARE AWV CALENDAR YEAR 2024 ZOSTER VACCINE Completed 03/18/2019, [...] this topic Medical Devices Implanted Type Area Special Educator Device Identifier Shelf Expiration Date Model / Serial / Lot Jean Bone Void 10ml Dbm Grftn Algrf Ptty Implanted:Qty: 1 on 06/04/2022 by Deon Taylor MD at [facility] N/A: Spine Med[employer]onic Inc 05/04/2025 [id number] / / [id number] 90mm Rods Implanted:Qty: 2 on 06/04/2022 by Deon Taylor MD at [facility] N/A: Spine Synthes Spine [id number] / / Jean Bone Void 10ml Dbm Grftn Algrf Ptty Implanted:Qty: 1 on 06/04/2022 by Deon Taylor MD at [facility] N/A: Spine Med[employer] Inc 05/04/2025 [id number] / / [id number] Graft Bone Canc 4-9.5mm 15cc Frzdr Chp Implanted:Qty: 1 on 06/04/2022 by Deon Taylor MD at [facility] N/A: Spine Allosource 02/26/2027 [id number] / / [id number] Graft Bone Canc 4-9.5mm 30cc Algrf Frzdr Implanted:Qty: 1 on 06/04/2022 by Deon Taylor MD at [facility] N/A: Spine Allosource 12/27/2025 [id number] / / [id number] 3.5 X 14mm Screw Implanted:Qty: 4 on 06/04/2022 by Deon Taylor MD at [facility] N/A: Spine Synthes Spine [id number] / / 4.0x 20mm Screw Implanted:Qty: 2 on 06/04/2022 by Deon Taylor MD at [facility] N/A: Spine Synthes Spine [id number] / / 5.0 X 24mm Screw Implanted:Qty: 2 on 06/04/2022 by Deon Taylor MD at [facility] N/A: Spine Synthes Spine [id number] / / 4.5 X 26mm Screw Implanted:Qty: 2 on 06/04/2022 by Deon Taylor MD at [facility] N/A: Spine Synthes Spine [id number] / / Screw Caps Implanted:Qty: 10 on 06/04/2022 by Deon Taylor MD at [facility] N/A: Spine Synthes Spine [id number] / / Procedures Procedure Name Priority Date/Time Associated Diagnosis Comments BASIC METABOLIC PANEL (CALCIUM TOTAL) AM Draw 06/23/2022 3:06 AM CDT Coffee ground emesis HEMOGLOBIN A1C Routine 06/06/2022 3:07 AM HYDRAULIC MODELING ENGINEER from Last 3 Months or Most Recently Relevant to Health Maintenance Results * (ABNORMAL) BASIC METABOLIC PANEL (CALCIUM TOTAL) (06/23/2022 3:06 AM CDT) BUN 10 7 - 26 mg/dL 06/23/2022 4:38 AM CDT [facility] Creatinine 1.09(H) 0.56 - 0.96 mg/dL 06/23/2022 4:38 AM CDT [facility] Sodium 131(L) 136 - 145 mmol/L 06/23/2022 4:38 AM [facility] Potassium 4.2 3.5 - 4.5 mmol/L 06/23/2022 4:38 AM [facility] Chloride 100 98 - 107 mmol/L 06/23/2022 4:38 AM [facility] CO2 22 22 - 29 mmol/L 06/23/2022 4:38 AM [facility] Glucose 111 70 - 115 mg/dL 06/23/2022 4:38 AM [facility] Calcium 8.2(L) 8.4 - 10.2 mg/dL 06/23/2022 4:38 AM [facility] Anion Gap 13 8 - 18 06/23/2022 4:38 AM [facility] BUN/Creatinine Ratio 9 7 - 23 06/23/2022 4:38 AM [facility] Osmolality Calculated 272 270 - 300 mOsm/kg 06/23/2022 4:38 AM [facility] eGFR by CKD-EPI 54(L) >=90 mL/min/1.7 3 m2 06/23/2022 4:38 AM [facility] Blood BLOOD SPECIMEN / Unknown Lab Venipuncture / Unknown 06/23/2022 3:06 AM CDT 06/23/2022 4:03 AM [facility] Anabell Hernandez PA-C LAB - CHEMISTRY ORD ERABLES [address] [address], [facility] [phone] * HEMOGLOBIN A1C (06/06/2022 3:07 AM [facility]) Hemoglobin A1c 5.3 <=5.6 % 06/06/2022 3:38 PM [facility] Estimated Average Glucose 105 mg/dL 06/06/2022 3:38 PM [facility] Comment: HbA1c Interpretation: Normal : < 5.7% Pre-diabetes: 5.7-6.4% Diabetes: Equal to or greater than 6.5% Test results diagnostic of diabetes should be repeated for confirmation. Treatment target values recommended by ADA and other clinical organizations should be used to evaluate metabolic control in patients. Reference: [place] Diabetes Association, Standards of Care in Diabetes -2020 In patients 70 years and older consider HbA1c target range of 7.0-7.5% (Reference: Oswaldo Liz et al. ANSHUDA. 2012) The Sebia assay for the measurement of HbA1c is a National Glycohemoglobin Standardization Program (NGSP) certified method. Blood BLOOD SPECIMEN / Unknown Lab Venipuncture / Unknown 06/06/2022 3:07 AM HYDRAULIC MODELING ENGINEER 06/06/2022 3:28 AM HYDRAULIC MODELING ENGINEER Ama Gonzalez MD LAB - CHEMISTRY ORDERABLES [address] [place] [address], [facility] [phone] from Last 3 Months or Most Recently Relevant to Health Maintenance Advance Directives * Full Code (Latest Code Status on File) Date Activated Date Inactivated Comments 06/20/2022 6:09 PM 06/23/2022 5:59 PM * Full Code Date Activated Date Inactivated Comments 06/04/2022 1:16 PM 06/08/2022 11:04 PM * Full Code Date Activated Date Inactivated Comments 02/15/2022 5:44 AM 02/19/2022 3:38 PM Care Teams Vegetable Cook Relationship Specialty Start Date End Date Karrie Phillips MD [address] [place] [address] PCP - General 03/13/22
--- OUTSIDE RECORDS SUMMARY | 2024-06-08 17:41 | XMS_ITS | Clinical Summary ---
Author Organization [facility] Address [address] [place] [address] Phone Care Team Providers Care Mainspring Fabrication Supervisor Name Role Phone Karrie Tompkins MD Primary Care Provider [phone] Allergies Active Allergy Reactions Criticality Noted Date [...] strip 10/05/2020 Active Lancets (OneTouch Delica Plus Kolrfo79Z) misc 10/05/2020 Active cyanocobalamin 500 MCG tablet [...] PM CDT Pulse - - Temperature 35.9 C (96.6 F) 12/27/2021 3:32 PM CDT Respiratory Rate 18 12/27/2021 3:32 PM CDT Oxygen Saturation - - Inhaled Oxygen Concentration - - Weight 62.6 kg (138 lb) 12/27/2021 3:32 PM CDT Height 154.9 cm (5' 1 ) 12/27/2021 3:32 PM CDT Body Mass Index 26.07 12/27/2021 3:32 PM CDT Plan of Treatment Health Maintenance Due Date Last Done Comments Influenza Vaccine (#1) 2023 Pneumococcal PPSV23/PCV13 65 + Years / Low and Medium Risk Completed 07/01/2019, 06/30/2018 Care Teams Mainspring Fabrication Supervisor Relationship Specialty Start Date End Date Karrie Tompkins MD [address] [place] [id number] PCP - General 09/07/18
--- OUTSIDE RECORDS SUMMARY | 2024-06-08 17:41 | XMS_ITS | Patient Health Record ---
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) Active confirmed Problem 540410524 Fibromyalgia (M79.7) Active confirmed Problem 41023817 Essential hypertension (I10) Active confirmed Problem 767685124 Mixed hyperlipidemia (E78.2) Active confirmed Problem 46507437 Recurrent major depressive disorder, in partial remission (F33.41) Active confirmed Problem 067818145 MCTD (mixed connective tissue disease) (M35.1) Active confirmed Problem 105639888 Diabetes 1.5, 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 Plan Of Treatment No Information Insurance Providers Payer Name Payer Address Payer Phone Subscriber Number Group Number Insured Name Patient Relationship to Insured Coverage Start Date Coverage End Date AARP MCR [employer] [address] [address] [place] [address] [id number] [facility] Kandace Cole Self - patient is the insured 7 Medical (General) History Medical History History ICD Code Ferrell's esophagus CAD Connective tissue disease COPD Mild depression Diabetes Fibromyalgia Hyperlipidemia Hypertension NSAID shelter use Iron deficiency anemia Osteoarthritis Raynaud's disease [...]
--- OUTSIDE RECORDS SUMMARY | 2024-06-08 17:41 | XMS_ITS | Encounter Summary ---
Author Organization [facility] Address [address] [facility] [place] [address] Care Team Providers Care Cleaning And Maintenance Worker Name Role Phone Karrie Phillips MD Primary Care Provider [phone] Encounter Details Date Type Department Care Team (Late st Contact Info) Description 02/15/2022 Ophth Exam [facility] [address] [place] [phone] Makenzie Sin DO [address] [place] [phone] Social History Tobacco Use Types Packs/Day Years [...] Under Investigation 02/15/2022 02/15/2022 02/15/2022 3:59 PM CLUB ATTENDANT documented as of this encounter Care Teams Cleaning And Maintenance Worker Relationship Specialty Start Date End Date Karrie Phillips MD [address] [place] [address] PCP - General 03/13/22 documented as of this encounter
--- OUTSIDE RECORDS SUMMARY | 2024-06-08 17:41 | XMS_ITS | Encounter Summary ---
Author Organization [facility] Address [facility] [address], [place] [address] Phone Care Team Providers Care Nuclear Reactor Technician Name Role Phone Karrie Tompkins MD Primary Care Provider [phone] Reason for Visit * Reason Comments Med Refill Encounter Details Date Type Department Care Team (Late st Contact Info) Description 01/04/2022 Refill [facility] Nephrology and Hypertension [address] [place] [address], [address] [place] [address] Aubrey Reyna MD [address] [facility], [address] [place] [address] Social History Tobacco Use Types Packs/Day Years [...] on filedocumented in this encounter Care Teams Nuclear Reactor Technician Relationship Specialty Start Date End Date Karrie Tompkins MD [address] [place] [address] [place] [id number] PCP - General 09/07/18 documented as of this encounter
--- OUTSIDE RECORDS SUMMARY | 2024-06-08 17:41 | XMS_ITS | Encounter Summary ---
Author Organization [facility] Address [address] [facility] [place] [address] Care Team Providers Care Candy Cutter Hand Name Role Phone Karrie Phillips MD Primary Care Provider [phone] Encounter Details Date Type Department Care Team (Late st Contact Info) Description 02/16/2022 Ophth Exam [facility] [address] [facility], [place] [phone] Pi, [place] [id number] [address] Social History Tobacco Use Types Packs/Day Years [...] on filedocumented in this encounter Care Teams Candy Cutter Hand Relationship Specialty Start Date End Date Karrie Phillips MD [address] [place] [address] PCP - General 03/13/22 documented as of this encounter
--- OUTSIDE RECORDS SUMMARY | 2024-06-08 17:41 | XMS_ITS | Clinical Summary ---
Author Organization [facility] [address] Address [address] [place] [address] Care Team Providers Care Gas Meter Installer Name Role Phone Cheri Calderon NP Primary Care Provider [phone] Allergies Active Allergy Reactions Criticality Noted Date [...] hours as needed 2 Active vitamins A,C,E-zinc-copy coordinator per (PreserVision AREDS) 2,148 mcg-113 mg-45 mg-17.4mg [...] day as needed for dizziness 2 05/12/19 Discontinu ed(Reorder ) Active Problems Problem Noted Date Diagnosed Date Obesity (BMI 30-39.9) 05/12/2024 Assessment & Plan (05/12/2024 10:46 AM CLIENT EXPERIENCE CONSULTANT): Discussed the patients BMI: The BMI is [...] 02/23/2019 Assessment & Plan (05/12/2024 11:22 AM CLIENT EXPERIENCE CONSULTANT): This is a significant, separately identifiable problem that was evaluated and managed on the same day as the wellness exam Mixed hyperlipidemia 02/23/2019 Type 2 diabetes mellitus with hyperlipidemia Degeneration of cervical intervertebral disc 12/2009 Encounters Date Type Department Care Team Description 06/03/2024 Results Follow-Up [facility] Family Medicine [address] [place] [address] [place] [phone] Cheri Calderon NP 05/12/2024 10:30 AM CLIENT EXPERIENCE CONSULTANT Office Visit [facility] Internal Medicine at [address] [place] [address] Cheri Calderon NP Physical exam, annual (Primary Dx); Hypertension associated with diabetes (HCC); BMI 30.0-30.9,adult; Obesity (BMI 30-39.9); Type 2 diabetes mellitus with hyperlipidemia (HCC); Breast cancer screening by mammogram; Longstanding persistent atrial fibrillation (HCC) 05/11/2024 10:00 AM CLIENT EXPERIENCE CONSULTANT Office Visit [facility] Cardiology [address] [facility] [address] [place] [phone] Rhea Torres NP Paroxysmal atrial fibrillation (HCC) (Primary Dx); History of GI bleed; Hospital discharge follow-up; Edema, lower extremity; Primary hypertension; Mixed hyperlipidemia; Stage 4 chronic kidney disease (HCC) 04/22/2024 Orders Only [facility] Cardiology [address] [place] [address] Roxanna Sethi MD from Last 3 Months Immunizations Immunization Administration Dates Next Due DTP 07/18/2011 Influenza, Quadrivalent, Hig h Dose, Preservative Free, Intrr 12/08/2019 Influenza, Quadrivalent, Spl it, Intramuscular 12/09/2019,12/30/2018 Influenza, Trivalent, High D ose, Split, Preservative Free, Intramuscular 01/25/2019 Influenza, Unspecified 04/01/2024(Deferr ed: Patient Refused),04/01/2023(Deferred: Patient Refused) threadsy (J&J) SARS-CoV-2 Vaccination 06/08/2020 Pneumococcal Conjugate PCV [...] on file Legal Sex Female 8:14 PM CLIENT EXPERIENCE CONSULTANT Gender Identity Not on file Sexual Orientation Not on file Obstetrics History Last Filed Vital Signs Vital Sign Reading Time Taken Comments Blood Pressure 122/58 05/12/2024 10:49 AM CLIENT EXPERIENCE CONSULTANT Pulse 68 05/12/2024 10:49 AM CLIENT EXPERIENCE CONSULTANT Temperature 36.6 C (97.9 F) 05/12/2024 10:49 AM CLIENT EXPERIENCE CONSULTANT Respiratory Rate - - Oxygen Saturation 97% 05/12/2024 10:49 AM CLIENT EXPERIENCE CONSULTANT Inhaled Oxygen Concentration - - Weight 70.8 kg (156 lb) 05/12/2024 10:49 AM CLIENT EXPERIENCE CONSULTANT Height 177.8 cm (5' 10 ) 05/12/2024 10:49 AM CLIENT EXPERIENCE CONSULTANT Body Mass Index 22.38 05/12/2024 10:49 AM CLIENT EXPERIENCE CONSULTANT Plan of Treatment Health Maintenance Due Date Last Done Comments Breast Cancer Screening-Mammogram 1950 Colon Cancer Screening-Colonoscopy 1950 Hepatitis C Screening 1950 Osteoporosis Screening-Bone Density Scan 1950 Dilated Eye Exam 1950 Foot Exam 1950 Hepatitis B Screening 02/12/1968 DTaP/Tdap/Td Vaccine (2 - Tdap) 07/17/2021 07/18/2011 Covid-19 Vaccine (2 - season) 2023 06/08/2020 Influenza Vaccine (#1) 2024 , 12/09/2019, 12/08/2019, Additional history exists Postponed from 12/01/2023 (Patient declined, but will receive in the future) Hemoglobin A1C 12/03/2024 06/02/2024, 0310/2022, 02/16/2022 Depression Screening 05/12/2025 05/12/2024 Fall Risk Assessment 05/12/2025 05/12/2024 Well Visit 65+ 05/12/2025 05/12/2024 Albumin Creatinine Ratio, Urine 06/02/2025 06/02/2024 Lipid Panel 06/02/2025 06/02/2024, 12/31, 10/22/2022, Additional history exists eGFR 06/02/2025 06/02/2024 Zoster Vaccine Completed 03/18/2019, 01/12/2019 Pneumococcal vaccine 65+ Completed 07/01/2019, 040 04/2018 Procedures Procedure Name Priority Date/Time Associated Diagnosis Comments LIPID PANEL Routine 06/02/2024 10:33 AM CLIENT EXPERIENCE CONSULTANT Type 2 diabetes mellitus with hyperlipidemia (HCC) HEMOGLOBIN A1C Routine 06/02/2024 10:33 AM CLIENT EXPERIENCE CONSULTANT Hypertension associated with diabetes (HCC) Type 2 diabetes mellitus with hyperlipidemia (HCC) COMPREHENSIVE METABOLIC PANEL Routine 06/02/2024 10:33 AM CLIENT EXPERIENCE CONSULTANT Hypertension associated with diabetes (HCC) ALBUMIN CREATININE RATIO, URINE Routine 06/02/2024 10:33 AM CLIENT EXPERIENCE CONSULTANT Hypertension associated with diabetes (HCC) CARDIOLOGY DOCUMENT SCAN Routine 04/14/2024 8:15 AM CLIENT EXPERIENCE CONSULTANT from Last 3 Months Results * (ABNORMAL) Albumin Creatinine Ratio, Urine (06/02/2024 10:33 AM CLIENT EXPERIENCE CONSULTANT) Creatinine, ur 160 20 - 275 mg/dL [...] diagnostic category. Urine 06/02/2024 10:3 3 AM CLIENT EXPERIENCE CONSULTANT 06/02/2024 10:33 AM CLIENT EXPERIENCE CONSULTANT Narrative [facility] - 06/03/2024 6:08 AM CLIENT EXPERIENCE CONSULTANT FASTING:YES FASTING: YES us Cheri Calderon NP LAB URINE ORDERABLES Final Re sult [facility] [address] [place] [address] * Hemoglobin A1c (06/02/2024 10:33 AM CLIENT EXPERIENCE CONSULTANT) Hgb A1C 5.5 <5.7 % of total Hgb [email or web address] Comment: For the purpose of screening for the presence of diabetes: <5.7% Consistent with the absence of diabetes 5.7-6.4% Consistent with increased risk for diabetes (prediabetes) > or =6.5% Consistent with diabetes This assay result is consistent with a decreased risk of diabetes. Currently, no consensus exists regarding use of hemoglobin A1c for diagnosis of diabetes in children. According to [place] Diabetes Association (ADA) guidelines, hemoglobin A1c <7.0% represents optimal control in non- diabetic patients. Different metrics may apply to specific patient populations. Standards of Medical Care in Diabetes(ADA). Blood 06/02/2024 10:3 3 AM CLIENT EXPERIENCE CONSULTANT 06/02/2024 10:33 AM CLIENT EXPERIENCE CONSULTANT Narrative [facility] - 06/03/2024 6:08 AM CLIENT EXPERIENCE CONSULTANT FASTING:YES FASTING: YES us Cheri Calderon MANAGEMENT ARCHITECT LAB BLOOD ORDERABLES [facility] [address] [place] [address] * (ABNORMAL) Lipid panel (06/02/2024 10:33 AM CLIENT EXPERIENCE CONSULTANT) [facility] Cholesterol 129 <200 mg/dL [facility] HDL 38(L) > OR = 50 mg/dL [facility] Triglycerides 159(H) <150 mg/dL [facility] LDL 67 mg/dL (calc) [facility] Comment: Reference range: <100 Desirable range <100 mg/dL for primary prevention; <70 mg/dL for patients with CHD or diabetic patients with > or = 2 CHD risk factors. LDL-C is now calculated using the Harpreet-Memo calculation, which is a validated novel method providing better accuracy than the Friedewald equation in the estimation of LDL-C. Harpreet GARCIAS et al. EVELYNE. 2013;310(19): 5720-5953 (http://education.Notch/faq/DYW983) Chol/HDL ratio 3.4 <5.0 (calc) [facility] Non-HDL, (LDL+VLDL) 91 <130 mg/dL (calc) [facility] Comment: For patients with diabetes plus 1 major ASCVD risk factor, treating to a non-HDL-C goal of <100 mg/dL (LDL-C of <70 mg/dL) is considered a therapeutic option. Blood 06/02/2024 10:3 3 AM CLIENT EXPERIENCE CONSULTANT 06/02/2024 10:33 AM CLIENT EXPERIENCE CONSULTANT Narrative [facility] - 06/03/2024 6:08 AM CLIENT EXPERIENCE CONSULTANT FASTING:YES FASTING: YES us Cheri Calderon MANAGEMENT ARCHITECT LAB BLOOD ORDERABLES Final Re sult [email or web address] [address] [place] [address] * (ABNORMAL) Comprehensive metabolic panel (06/02/2024 10:33 AM CLIENT EXPERIENCE CONSULTANT) Glucose 159(H) 65 - 99 mg/dL [facility] Comment: Fasting reference interval For someone without known diabetes, a glucose value >125 mg/dL indicates that they may have diabetes and this should be confirmed with a follow-up test. BUN 14 7 - 25 mg/dL [facility] Creatinine 1.50(H) 0.60 - 1.00 mg/dL [facility] eGFR 36(L) > OR = 60 mL/min/1.7 3m2 [facility] BUN/creat ratio 9 6 - 22 (calc) [email or web address] Sodium 136 135 - 146 mmol/L [facility] Potassium, pl 4.0 3.5 - 5.3 mmol/L [facility] Chloride 97(L) 98 - 110 mmol/L [facility] CO2 32 20 - 32 mmol/L [facility] Calcium 9.8 8.6 - 10.4 mg/dL [facility] Protein, sr 6.5 6.1 - 8.1 g/dL [facility] Albumin 4.2 3.6 - 5.1 g/dL [facility] GLOBULIN 2.3 1.9 - 3.7 g/dL (calc) [facility] Alb/glob ratio 1.8 1.0 - 2.5 (calc) [facility] Bilirubin, total 0.8 0.2 - 1.2 mg/dL [facility] Alk phos 64 37 - 153 U/L [facility] AST 15 10 - 35 U/L [facility] ALT (SGPT) 9 6 - 29 U/L [facility] Blood 06/02/2024 10:3 3 AM CLIENT EXPERIENCE CONSULTANT 06/02/2024 10:33 AM CLIENT EXPERIENCE CONSULTANT Narrative [facility] - 06/03/2024 6:08 AM CLIENT EXPERIENCE CONSULTANT FASTING:YES FASTING: YES us Cheri Calderon MANAGEMENT ARCHITECT LAB BLOOD ORDERABLES Final Re sult [facility] [address] [place] [address] * Cardiology Document Scan (04/14/2024 8:15 AM CLIENT EXPERIENCE CONSULTANT) Anatomical Region Laterality Modality Other us Roxanna Sethi MD CV CARDIAC SERVICES PRO CEDURES Final Result from Last 3 Months Insurance MEDICARE [facility] MEDICARE Address: [id number] [place] [address] [facility] MDCR HMO RE[facility] Address: [address] [address] [place] [address] [facility] MDCR HMO REF [facility] MEDIC[facility] Address: [address] [address] [place] [address] [employer]IC[employer] [facility] MEDIC[facility] Address: [address] [address] [place] [address] Care Teams Gas Meter Installer Relationship Specialty Start Date End Date Cheri Calderon NP [address] [address] PCP - General Internal Medicine 05/11/24
--- OUTSIDE RECORDS SUMMARY | 2024-06-08 17:41 | XMS_ITS | Data Portability ---
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 Plan of Treatment Reminders Order Date Submit Date Provider Last Modified By Organization Details Last Modified Time Details Appointments None recorded. Lab uric acid, serum or plasma [address] (Lab), [address] [place], [address], 4 16:31:52 glycohemogl obin, total, blood [address] (Lab), [address] [place], [address], 4 16:31:40 uric acid, serum or plasma 2023 024 [facility] (Lab), [address] [place], [address], 4 20:39:00 PTH (parathyroi d hormone), intact, serum or plasma 2023 024 [facility] (Lab), [address] [place], [address], 4 20:41:41 renal function panel, serum [email or web address] [place] [address] (Lab), [address] [place], [address], 4 08:06:44 vitamin D, 25-hydroxy, total, serum 2023 024 [facility] (Lab), [address] [place], [address], 4 07:34:09 protein, total, urine 2023 024 [facility] (Lab), [address] [place], [address], 4 20:34:54 ESR (erythrocyt e sedimentati on rate), blood 2023 024 [facility] (Lab), [address] [place], [address], 4 21:47:07 lipid panel, serum 2023 024 [facility] (Lab), [address] [place], [address], 4 20:38:58 hepatic function panel, serum [email or web address] [place] [address] (Lab), [address] [place], [address], 4 08:06:45 HbA1c (hemoglobin A1c), blood 2023 024 [facility] (Lab), [address] [place], [address], 4 07:33:45 TSH, serum or plasma 2023 024 [facility] (Lab), [address] [place], [address], 4 21:02:31 T4, free, serum 2023 024 [facility] (Lab), [address] [place], [address], 4 20:49:42 CBC w/ auto diff 2023 024 [facility] (Lab), [address] [place], [address], 4 21:50:25 ferritin, serum or plasma 2023 024 [facility] (Lab), [address] [place], [address], 4 21:09:42 iron + total iron-bindin g capacity (TIBC), serum 2023 024 [facility] (Lab), [address] [place], [address], 4 20:37:47 CBC w/ auto diff 2023 024 [facility] (Lab), [address] [place], [address], 4 20:28:05 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 Thank you. 2023 024 brandon Isaac Jr DPM, [address], [address], [place], [address], 4 13:38:30 Procedures upper endoscopy procedure (EGD) (PROC) - Repeat due 12/23 [email or web address] [place] [address] (Pre-Screen), [address] [place], [address], 4 09:56:17 Surgeries None recorded. Imaging DEXA 2023 024 [facility] (Imaging), [address], [place], [address], 4 18:42:39 XR, hip + pelvis, unilateral 2023 024 [facility] Not available 4 17:43:26 XR, lumbar spine 2023 024 [facility] Not available 4 17:44:21 Medication Orders allopurinol 100 mg tablet 2023 024 [facility] #90315, [address], [place], [place], [id number], 4 16:20:45 Ozempic 0.25 mg or 0.5 mg (2 mg/3 mL) subcutaneou s pen injector 2023 024 [facility] #33744, [address], [place], [place], [id number], 4 16:21:15 carvedilol 12.5 mg tablet 2023 024 [facility], [address], [place], [place], [id number], 4 16:20:46 gabapentin 300 mg capsule 2023 024 [facility], [address], [place], [place], [id number], 4 16:20:49 Ozempic 0.25 mg or 0.5 mg (2 mg/3 mL) subcutaneou s pen injector 2023 024 [facility] #98352, [address], [place], [place], [id number], 4 14:34:29 triamcinolo ne acetonide 0.1 % topical ointment 2023 024 [facility] #90908, [address] , [place], [place], [id number], 15:56:50 OneTouch Verio test strips 2023 024 [facility] #19752, [address] , [place], [place], [id number], 15:56:51 Patient TargetsNo targets recorded. Patient Instructions Encounter Date Encounter Id Patient Instructions Last Modified By Organization Details Last Modified Time 08/06/2023 [id number] dementia rating scale-2* [email or web address] Not available 08/07/2023 08:02:26 Personalized a lt Plan and Screening Recommendations Advance Directives - Do you have one? Advance Directives - Do we have your advance directive on file in your health record? Primary Prevention/Interven tion (prevents or decreases the chance of common diseases from occurring) Smoking Risk: Alcohol Misuse Screening: Weight: Physical activity: Nutrition: Fall Risk (screened today): Vaccines Pneumococcal: Influenza: Your next one in the fall of this year Chronic Disease Risks Stroke: I have no recommendations Act shakir diagnosis, Continue current treatment plan Heart Attack: I have no recommendations Act shakir diagnosis, Continue current treatment plan Clogging of the Arteries: I have no recommendations Act shakir diagnosis, Continue current treatment plan Diabetes: Active diagnosis, Continue current treatment plan Secondary Prevention/Interven tion (detects treatable diseases before they may cause symptoms, disability, or ) Breast Cancer Screening with mammogram: Cervical/Uterine/Ov travon Cancer Screening: Osteoporosis Screening: Date Screening Last Performed: Colon Cancer Screening: Date Screening Last Performed: Eye Disease Screening: Dementia Risk: Depression Screening: Active diagnosis, Continue current treatment plan Not available 08/06/2023 15:56:30 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 Thank you. Referring Physician: Flex Tompkins, Family Medicine, Encounter Date: 08/06/2023 Results Created Date Observation Date Name Description Value Unit Range Abnormal Flag Note LastModifiedBy Organization Detail LastModifiedTime 08/06/19 24 08/06/2023 CBC/C OMPLE TE BLD COUNT W/DIF F white blood cells 10.0 x10'3 /uL 4.2-10 .8 Not Available [facility] (Lab) [address] [place], [address], 08/06/2023 20:28:05 08/06/19 24 08/06/2023 CBC/C OMPLE TE BLD COUNT W/DIF F red blood cells 3.31 x10'6 /uL 3.80-5 .20 low Not Available [facility] (Lab) [address] [place], [address], 08/06/2023 20:28:05 08/06/19 24 08/06/2023 CBC/C OMPLE TE BLD COUNT W/DIF F hemoglobin 10.5 g/dL 12.0-1 5.6 low Not Available [facility] (Lab) [address] [place], [address], 08/06/2023 20:28:05 08/06/19 24 08/06/2023 CBC/C OMPLE TE BLD COUNT W/DIF F hematocrit 32.9 % 35.7-4 5.7 low Not Available [facility] (Lab) [address] [place], [address], 08/06/2023 20:28:05 08/06/19 24 08/06/2023 CBC/C OMPLE TE BLD COUNT W/DIF F mean red cell volume 99.4 fL 82.0-9 9.0 high Not Available [facility] (Lab) [address] [place], [address], 08/06/2023 20:28:05 08/06/19 24 08/06/2023 CBC/C OMPLE TE BLD COUNT W/DIF F mean red cell hemoglobin 31.7 pg 27.0-3 3.0 Not Available [facility] (Lab) [address] [place], [address], 08/06/2023 20:28:05 08/06/19 24 08/06/2023 CBC/C OMPLE TE BLD COUNT W/DIF F mean RBC HGB concentratio n 31.9 g/dL 31.0-3 6.0 Not Available [facility] (Lab) [address] [place], [address], 08/06/2023 20:28:05 08/06/19 24 08/06/2023 CBC/C OMPLE TE BLD COUNT W/DIF F red cell distribution width 14.4 % 11.8-1 5.5 Not Available [facility] (Lab) [address] [place], [address], 08/06/2023 20:28:05 08/06/19 24 08/06/2023 CBC/C OMPLE TE BLD COUNT W/DIF F platelets 298 x10'3 /uL 150-40 0 Not Available [facility] (Lab) [address] [place], [address], 08/06/2023 20:28:05 08/06/19 24 08/06/2023 CBC/C OMPLE TE BLD COUNT W/DIF F mean platelet volume 10.9 fL 9.0-12 .4 Not Available [facility] (Lab) [address] [place], [address], 08/06/2023 20:28:05 08/06/19 24 08/06/2023 CBC/C OMPLE TE BLD COUNT W/DIF F neutrophils 78.2 % 39.0-7 2.0 high Not Available [facility] (Lab) [address] [place], [address], 08/06/2023 20:28:05 08/06/19 24 08/06/2023 CBC/C OMPLE TE BLD COUNT W/DIF F lymphocytes 11.5 % 16.0-4 7.0 low Not Available [facility] (Lab) [address] [place], [address], 08/06/2023 20:28:05 08/06/19 24 08/06/2023 CBC/C OMPLE TE BLD COUNT W/DIF F monocytes 6.7 % 5.0-12 .0 Not Available [facility] (Lab) [address] [place], [address], 08/06/2023 20:28:05 08/06/19 24 08/06/2023 CBC/C OMPLE TE BLD COUNT W/DIF F eosinophils 2.7 % 1.0-7. 0 Not Available [facility] (Lab) [address] [place], [address], 08/06/2023 20:28:05 08/06/19 24 08/06/2023 CBC/C OMPLE TE BLD COUNT W/DIF F basophils 0.3 % 0.0-2. 0 Not Available [facility] (Lab) [address] [place], [address], 08/06/2023 20:28:05 08/06/19 24 08/06/2023 CBC/C OMPLE TE BLD COUNT W/DIF F immature granulocytes 0.6 % 0.00-0 .50 high Not Available [facility] (Lab) [address] [place], [address], 08/06/2023 20:28:05 08/06/19 24 08/06/2023 CBC/C OMPLE TE BLD COUNT W/DIF F neutrophils, absolute count 7.83 x10'3 /uL 1.5-8. 0 Not Available [facility] (Lab) [address] [place], [address], 08/06/2023 20:28:05 08/06/19 24 08/06/2023 CBC/C OMPLE TE BLD COUNT W/DIF F lymphocytes, absolute count 1.15 x10'3 /uL 1.07-3 .43 Not Available [facility] (Lab) [address] [place], [address], 08/06/2023 20:28:05 08/06/19 24 08/06/2023 CBC/C OMPLE TE BLD COUNT W/DIF F monocytes, absolute count 0.67 x10'3 /uL 0.29-0 .99 Not Available [facility] (Lab) [address] [place], [address], 08/06/2023 20:28:05 08/06/19 24 08/06/2023 CBC/C OMPLE TE BLD COUNT W/DIF F eosinophils, absolute count 0.27 x10'3 /uL 0.02-0 .53 Not Available [facility] (Lab) [address] [place], [address], 08/06/2023 20:28:05 08/06/19 24 08/06/2023 CBC/C OMPLE TE BLD COUNT W/DIF F basophils, absolute count 0.03 x10'3 /uL 0.01-0 .08 Not Available [facility] (Lab) [address] [place], [address], 08/06/2023 20:28:05 08/06/19 24 08/06/2023 CBC/C OMPLE TE BLD COUNT W/DIF F immature granulocytes ,absolute 0.06 x10'3 /uL 0.00-0 .05 high Not Available [facility] (Lab) [address] [place], [address], 08/06/2023 20:28:05 08/06/19 24 08/06/2023 CBC/C OMPLE TE BLD COUNT W/DIF F nucleated red blood cells 0.0 % -0 Not Available [facility] (Lab) [address] [place], [address], 08/06/2023 20:28:05 08/06/19 24 08/06/2023 CBC/C OMPLE TE BLD COUNT W/DIF F NRBC# 0.00 x10'3 /uL Not Available [facility] (Lab) [address] [place], [address], 08/06/2023 20:28:05 08/06/19 24 08/06/2023 PROTE IN URINE RANDO M ur prot 10 mg/dL 0.0-11 .9 Not Available [facility] (Lab) [address] [place], [address], 08/06/2023 20:34:54 08/06/19 24 08/06/2023 IRON/ TIBC PANEL total iron binding capacity 260 mcg/d L 265-47 5 low Not Available [facility] (Lab) [address] [place], [address], 08/06/2023 20:40:29 08/06/19 24 08/06/2023 IRON/ TIBC PANEL % transferrin saturation 33 % 20-55 Not Available [facility] (Lab) [address] [place], [address], 08/06/2023 20:40:29 08/06/19 24 08/06/2023 IRON/ TIBC PANEL unsaturated iron bind capacity 175 mcg/d L 126-38 2 Not Available [facility] (Lab) [address] [place], [address], 08/06/2023 20:40:29 08/06/19 24 08/06/2023 IRON/ TIBC PANEL iron 85 mcg/d L 42-175 Not Available [facility] (Lab) [address] [place], [address], 08/06/2023 20:40:29 08/06/19 24 08/06/2023 LIPID PANEL cholesterol 157 mg/dL 140-19 9 NIH ERIC NSUS RECOM MENDA TION FOR ATIYA STERO L: ADULT CHILD LOW RISK: <200 <170 BORDE RLINE : <200- 239 ----- HIGH RISK: >240 >200 Not Available [facility] (Lab) [address] [place], [address], 08/06/2023 20:38:57 08/06/19 24 08/06/2023 LIPID PANEL triglyceride s 251 mg/dL 0-150 high NIH ERIC NSUS REPOR T RECOM MENDA TION FOR TRIGL YCERI RASHEED: ADULT CHILD LOW RISK: <150 ----- BODER LINE: 150-1 99 ----- HIGH RISK: >200 ----- Not Available [facility] (Lab) [address] [place], [address], 08/06/2023 20:38:57 08/06/19 24 08/06/2023 LIPID PANEL HDL cholesterol 40 mg/dL 40- Not Available [facility] (Lab) [address] [place], [address], 08/06/2023 20:38:57 08/06/19 24 08/06/2023 LIPID PANEL [...] WILL NOT BE REPOR ELEAZAR. Not Available [facility] (Lab) [address] [place], [address], 08/06/2023 20:38:57 08/06/19 24 08/06/2023 URIC ACID SERUM uric acid 5.2 mg/dL 2.5-6. 2 Not Available [facility] (Lab) [address] [place], [address], 08/06/2023 20:38:59 08/06/19 24 08/06/2023 COMP MET PANEL /LIVE R sodium 136 mmol/ L 137-14 5 low Not Available [facility] (Lab) [address] [place], [address], 08/06/2023 20:39:24 08/06/19 24 08/06/2023 COMP MET PANEL /LIVE R potassium 6.0 mmol/ L 3.5-5. 1 high Not Available [facility] (Lab) [address] [place], [address], 08/06/2023 20:39:24 08/06/19 24 08/06/2023 COMP MET PANEL /LIVE R chloride 109 mmol/ L 98-107 high Not Available [facility] (Lab) [address] [place], [address], 08/06/2023 20:39:24 08/06/19 24 08/06/2023 COMP MET PANEL /LIVE R carbon dioxide 17 mmol/ L 22-30 low Not Available [facility] (Lab) [address] [place], [address], 08/06/2023 20:39:24 08/06/19 24 08/06/2023 COMP MET PANEL /LIVE R anion gap 16.0 mmol/ L 14-22 Not Available [facility] (Lab) [address] [place], [address], 08/06/2023 20:39:24 08/06/19 24 08/06/2023 COMP MET PANEL /LIVE R glucose 132 mg/dL 70-99 high Not Available [facility] (Lab) [address] [place], [address], 08/06/2023 20:39:24 08/06/19 24 08/06/2023 COMP MET PANEL /LIVE R BUN 48 mg/dL 8-19 high Not Available [facility] (Lab) [address] [place], [address], 08/06/2023 20:39:24 08/06/19 24 08/06/2023 COMP MET PANEL /LIVE R creatinine 2.32 mg/dL 0.66-1 .25 high Not Available [facility] (Lab) [address] [place], [address], 08/06/2023 20:39:24 08/06/19 24 08/06/2023 COMP MET PANEL /LIVE R GFR 21 Refer ence Range : Carver ge GFR Healt hy Adult : >60 [...] serum creat inine relat ed to nutri lonyn l statu s or medic ation usage . For perso ns <18 years of age, a pedia tric GFR calcu lator is avail able on the [facility] websi te: https ://aditi w.kid kelsey.o rg/pr ofess ional s/kdo qi/gf r_cal culat or Not Available [facility] (Lab) [address] [place], [address], 08/06/2023 20:39:24 08/06/19 24 08/06/2023 COMP MET PANEL /LIVE R alkaline phosphatase 77 U/L 38-126 Not Available [facility] (Lab) [address] [place], [address], 08/06/2023 20:39:24 08/06/19 24 08/06/2023 COMP MET PANEL /LIVE R alanine aminotransfe rase 16 U/L 0-35 Not Available [facility] (Lab) [address] [place], [address], 08/06/2023 20:39:24 08/06/19 24 08/06/2023 COMP MET PANEL /LIVE R aspartate aminotransfe rase 21 U/L 15-37 Not Available [facility] (Lab) [address] [place], [address], 08/06/2023 20:39:24 08/06/19 24 08/06/2023 COMP MET PANEL /LIVE R bilirubin, total 0.40 mg/dL 0.20-1 .30 Not Available [facility] (Lab) [address] [place], [address], 08/06/2023 20:39:24 08/06/19 24 08/06/2023 COMP MET PANEL /LIVE R bilirubin, conjugated (direct) 0.00 mg/dL 0.00-0 .30 Not Available [facility] (Lab) [address] [place], [address], 08/06/2023 20:39:24 08/06/19 24 08/06/2023 COMP MET PANEL /LIVE R biliurubin,u ncong. (indirect) 0.20 mg/dL 0.00-1 .1 Not Available [facility] (Lab) [address] [place], [address], 08/06/2023 20:39:24 08/06/19 24 08/06/2023 COMP MET PANEL /LIVE R calcium 9.5 mg/dL 8.4-10 .2 Not Available [facility] (Lab) [address] [place], [address], 08/06/2023 20:39:24 08/06/19 24 08/06/2023 COMP MET PANEL /LIVE R total protein 6.7 g/dL 6.3-8. 2 Not Available [facility] (Lab) [address] [place], [address], 08/06/2023 20:39:24 08/06/19 24 08/06/2023 COMP MET PANEL /LIVE R albumin 4.4 g/dL 3.0-4. 4 Not Available [facility] (Lab) [address] [place], [address], 08/06/2023 20:39:24 08/06/19 24 08/06/2023 COMP MET PANEL /LIVE R globulin 2.3 g/dL 2.6-4. 2 low Not Available [facility] (Lab) [address] [place], [address], 08/06/2023 20:39:24 08/06/19 24 08/06/2023 COMP MET PANEL /LIVE R A/G ratio 1.9 ratio 1.0-2. 0 Not Available [facility] (Lab) [address] [place], [address], 08/06/2023 20:39:24 08/06/19 24 08/06/2023 PHOSP HORUS phosphorus 4.7 mg/dL 2.5-4. 5 high Not Available [facility] (Lab) [address] [place], [address], 08/06/2023 20:39:28 08/06/19 24 08/06/2023 PARAT HY.HO RM(PT H)INT ACT-W /O CA intact parathyroid hormone 89.6 pg/mL 24.0-7 8.0 high Pleas e note new refer ence range effec tive 04/27 . Not Available [facility] (Lab) [address] [place], [address], 08/06/2023 20:41:41 08/06/19 24 08/06/2023 VITAM IN D 25-HY DROXY vd25oh 73.8 NG/mL 30-100 Vitam in D Statu s: Defic ient: <20 ng/mL Insuf ficie nt: 20-29 ng/mL Suffi cient : 30-10 0 ng/mL Not Available [facility] (Lab) [address] [place], [address], 08/06/2023 20:45:55 08/06/19 24 08/06/2023 T4 FREE free T4 1.07 NG/dL 0.78-2 .19 Not Available [facility] (Lab) [address] [place], [address], 08/06/2023 20:49:42 08/06/19 24 08/06/2023 TSH thyroid-stim ulating hormone 2.890 uIU/m L 0.465- 4.680 Not Available [facility] (Lab) [address] [place], [address], 08/06/2023 21:02:31 08/06/19 24 08/06/2023 PATRICIA TIN ferritin 148 NG/mL 11.1-2 64 Not Available [facility] (Lab) [address] [place], [address], 08/06/2023 21:09:42 08/06/19 24 08/06/2023 HEMOG LOBIN A1C HA1C 6.9 % 4.0-6. 0 high Diabe clif Scree los Crite lindy: <5.7% Consi stent with absen ce of diabe clif 5.7-6 .4% Consi stent with incre ased risk for diabe clif (pred iabet es) >OR=6 .5% Consi stent with diabe clif REFER ENCE: Diabe clif Care 2016, 39(Woody ppl.1 ):s13 -s22 Not Available [facility] (Lab) [address] [place], [address], 08/06/2023 21:14:10 08/06/19 24 08/06/2023 SEDIM ENTAT ION RATE erythrocyte sedimentatio n rate 67 mm/HR 0-20 high Not Available [facility] (Lab) [address] [place], [address], 08/06/2023 21:47:07 11/15/19 23 11/01/2022 CT, sinus es, w/o contr ast No observ ation record ed. [facility] [address], [place], [address], 11/14/2022 14:14:11 12/15/19 audio gram + tympa nogra m No observ ation record ed. [email or web address] [facility] [address] [place], [address], 12/17/2022 08:34:14 01/01/20 23 05/28/2018 audio gram No observ ation record ed. [email or web address] [facility] [address], [place], [address], 12/31/2022 14:41:49 05/06/19 24 05/06/2023 MAMMO , scree los, bilat eral No observ ation record ed. [address], [place], [address], 08/06/2023 15:31:58 08/08/19 24 08/08/2023 XR, hip + pelvi s, unila teral No observ ation record ed. [place] [id number], [place], [address], 08/13/2023 11:48:32 08/08/19 24 08/08/2023 XR, lumba r spine No observ ation record ed. [place] [id number], [place], [address], 08/13/2023 11:48:33 08/14/19 24 08/14/2023 DEXA No observ ation record ed. [address] [address], [place], [address], 08/15/2023 14:48:57 04/05/19 25 04/04/2024 XR, chest , 1 view No observ ation record ed. [address] [address], [place], [address], 04/07/2024 09:34:45 04/06/19 25 04/06/2024 US, bladd er No observ ation record ed. [place] [address], [place], [address], 04/07/2024 09:34:59 04/07/19 25 04/06/2024 US, renal No observ ation record ed. [email or web address] [address], [place], [address], 04/07/2024 23:05:39 04/08/19 25 04/08/2024 XR, chest , 1 view No observ ation record ed. [place] [address], [place], [address], 04/16/2024 08:32:38 04/08/19 25 04/08/2024 MRI, brain + brain stem, w/o contr ast No observ ation record ed. [place] [address], [place], [address], 04/16/2024 08:33:14 04/10/19 25 04/10/2024 XR, chest , 1 view No observ ation record ed. [place] [address], [place], [address], 04/16/2024 08:33:39 04/21/19 25 04/14/2024 US, echoc ardio gram No observ ation record ed. [facility] [address], [place], [address], 04/22/2024 21:52:54 Result Notes None recorded. Problems Name Problem SNOMED Code Status Onset Date Resolution Date Notes Provider Name and Address Organization Details Recorded Time [facility] 19660530 Active 2022 Flex Tompkins MD [address], [address], [place], [address] , [employer] 3 17:39:01 Serotonin syndrome 652928979 Active 2022 Flex Tompkins MD [address], [place], [address] , [employer] 3 08:36:46 Degenerat ion of cervical intervert ebral disc 41639606 Active 2022 Flex Tompkins MD [address], [address], [place], [address] , [employer] 3 08:37:29 Dysfuncti on of left eustachia n tube 84560481580 55736 Active 2022 Flex Tompkins MD [address], [place], [address] , [employer] 3 14:51:33 Dizziness 231412288 Active 2022 Flex Tompkins MD [address], [place], [address] , [employer] 3 14:24:25 Gout 21851145 Active 2022 Flex Tompkins MD [address], [place], [address] , [employer] 3 14:25:32 Chronic sinusitis 41443099 Active 2022 Noah Rodrigues MD [address], [place], [address] , [employer] 3 15:46:10 Sensorine ural hearing loss 52888991 Active 2022 Sherrie Rosas RN null, [facility] 3 15:16:32 Benign paroxysma l positiona l vertigo 197634114 Active 2022 Sherrie Rosas RN null, [facility] 3 15:17:40 Benign paroxysma l positiona l vertigo 367309153 Active 2022 Noah Rodrigues MD [address], [address], [place], [address] , [facility] 3 15:22:05 Degenerat ion of lumbar intervert ebral disc 07235430 Active 2023 Flex Tompkins MD [address], [place], [address] , [facility] 4 15:51:27 Pain of left hip joint 08517082517 9100 Active 2023 Flex Tompkins MD [address] [facility], [address], [place], [address] , [facility] 4 15:51:36 Eruption 698982471 Active 2023 Flex Tompkisn MD [address] [facility], [address], [place], [address] , [facility] 4 15:52:42 Lumbar spondylos is 049375026 Active 2023 Flex Tompkins MD [address] [facility], [address], [place], [address] , [facility] 4 11:49:02 Osteopeni a [id number] Active 2023 DEXA 08/22 Flex Tompkins MD [address] [facility], [place], [address] , [facility] 4 07:44:45 Paronychi a of toe of right foot [id number] Active 2021 Not Available [facility] 3 00:51:28 Benign essential hypertens ion [id number] Active Not Available [facility] 3 00:51:28 Chronic obstructi ve pulmonary disease [id number] Active 2018 Not Available [facility] 3 00:51:28 Hyperkale tay 76932182 Active Not Available [facility] 3 00:51:28 Serum creatinin e outside reference range [id number] Active Not Available [facility] 3 00:51:28 Raynaud's disease 389148080 Active 2018 Not Available [facility] 3 00:51:28 Fibromyal anahi 192470950 Active 2018 Not Available [facility] 3 00:51:28 Abdominal pain 56044041 Active Not Available [facility] 3 00:51:28 Perineal pain 967443941 Active Not Available [facility] 3 00:51:28 Sciatica 01951126 Active Not Available [facility] 3 00:51:28 Pneumonia 621836496 Active Not Available [facility] 3 00:51:28 Glaucoma 31704462 Active Not Available [facility] 3 00:51:29 Anemia 926922847 Active Not Available [facility] 3 00:51:29 Hyposmola lity 763337193 Active 2018 Not Available [facility] 3 00:51:29 Ferrell's esophagus 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 Active Last EGD 2 Not Available [facility] 3 00:51:29 Type 2 diabetes mellitus without complicat ion 444569908 Active Not Available [facility] 3 00:51:29 Hyperthyr oidism 52562731 Active Not Available [facility] 3 00:51:29 Depressiv e disorder 25027258 Active Not Available [facility] 3 00:51:29 Ulnar neuropath y 995349521 Active 2018 Not Available [facility] 3 00:51:29 Multiple bruising 629264567 Active Not Available [facility] 3 00:51:29 Migraine 95735555 Active Not Available [facility] 3 00:51:29 Osteoarth ritis 716125626 Active Not Available [facility] 3 00:51:29 Onychomyc osis of toenails 148433604 Active 2021 Not Available [facility] 3 00:51:29 Hypothyro idism 48231208 Active Not Available [facility] 3 00:51:29 Blood leukocyte number above reference range 823250274 Active Not Available [facility] 3 00:51:30 Nonexudat shakir age-relat ed macular degenerat ion 541346339 Active Not Available [facility] 3 00:51:30 Temporoma ndibular joint disorder 54799107 Active Not Available [facility] 3 00:51:30 Degenerat shakir disorder of macula 738016279 Active Not Available [facility] 3 00:51:30 Nausea 582381091 Active 2021 Not Available [facility] 3 00:51:30 Chronic kidney disease stage 3 730156693 Active 2018 Not Available [facility] 3 00:51:30 Disorder of kidney and/or ureter 348104524 Completed Not Available [facility] 3 00:51:30 Sprain of ankle 96533455 Active Not Available [facility] 3 00:51:30 Hyperlipi demia 11236299 Active Not Available [facility] 3 00:51:30 Essential hypertens ion 00226463 Active Not Available [facility] 3 00:51:30 Polyp of colon 34433809 Active Not Available [facility] 3 00:51:31 Diabetes mellitus 43713805 Active Not Available [facility] 3 00:51:31 Cardiomeg sreekanth 2762872 Active Not Available [facility] 3 00:51:31 Iron deficienc y anemia 47679768 Active Not Available [facility] 3 00:51:31 Systemic sclerosis 97107793 Active Not Available [facility] 3 00:51:31 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 Procedures Surgical History Date Name Laterality Status Provider Name and Address Organization Details Recorded Time 08/05 Medicare Wellness CPT Code, subsequent completed Selina Cardoso RN [facility] [employer] 4 15:22:03 05/30 Transitional_Care_Managemen t completed Darlene Salazar MA [facility] [employer] 3 17:29:23 12/25 esophagogastroduodenoscopy completed Not Available [facility] 3 00:44:33 Orthopedic Surgery completed Not Available [facility] 3 00:44:33 tooth extraction completed Not Available [facility] 3 00:44:33 Tonsillectomy completed Not Available [facility] 3 00:44:33 colonoscopy completed Not Available [facility] 3 00:44:33 Carpal tunnel surgery completed Not Available [facility] 3 00:44:33 Rotator cuff surgery completed Not Available [facility] 3 00:44:33 Imaging Results Imaging Date Name Status LastModified by Organization Details LastModified Time 11/01/2022 CT, sinuses, w/o contrast completed [facility] [address], [place], [address], 11/14/2022 14:14:11 12/14/2022 audiogram + tympanogram completed [email or web address] [facility] [address], [place], [address], 12/17/2022 08:34:14 05/28/2018 audiogram completed [email or web address] [facility] [address], [place], [address], 12/31/2022 14:41:49 05/06/2023 MAMMO, screening, bilateral completed [address] [address], [place], [address], 08/06/2023 15:31:58 08/08/2023 XR, hip + pelvis, unilateral completed [address] [address], [place], [address], 08/13/2023 11:48:32 08/08/2023 XR, lumbar spine completed [address] [address], [place], [address], 08/13/2023 11:48:33 08/14/2023 DEXA completed [address] [address], [place], [address], 08/15/2023 14:48:57 04/04/2024 XR, chest, 1 view completed [address], [address], 04/07/2024 09:34:45 04/06/2024 US, bladder completed [address] [address], [place], [address], 04/07/2024 09:34:59 04/06/2024 US, renal completed [address] [address], [place], [address], 04/07/2024 23:05:39 04/08/2024 XR, chest, 1 view completed [address], [address], 04/16/2024 08:32:38 04/08/2024 MRI, brain + brain stem, w/o contrast completed [address], [address], 04/16/2024 08:33:14 04/10/2024 XR, chest, 1 view [facility] [address] [place] [address] [address], [place], [address], 04/16/2024 08:33:39 04/14/2024 US, echocardiogram completed [email or web address] [address], [place], [address], 04/22/2024 21:52:54 Procedure Notes None recorded. Medical Equipment None Reported. Allergies Allergen ID Allergen Name Allergen Category Reaction Reaction Severity Criticality Documentation Date Start Date Code Code System Note Provider Name and Address Organization Details Recorded Time 951 Urecholin e medicatio n Not available Not available Not available 05/30/2022 03181 RxNorm Not Available [facility] 3 00:57:51 952 Travatan medicatio n Not available Not available Not available 05/30/2022 34568 6 RxNorm Not Available [facility] 3 00:57:51 953 Substance with sulfonami de structure and antibacte rial mechanism of action (substanc e) medicatio n Not available Not available Not available 05/30/2022 96362 8003 SNOMED Not Available [facility] 3 00:57:51 954 sulfameth oxazole / trimethop rim medicatio n Not available Not available Not available 05/30/2022 53750 RxNorm Not Available [facility] 3 00:57:51 955 Prozac medicatio n Not available Not available Not available 05/30/2022 28791 RxNorm Not Available [facility] 3 00:57:51 956 Ocuvite Lutein medicatio n Not available Not available Not available 05/30/2022 70258 5 RxNorm Not Available [facility] 3 00:57:51 957 Naprosyn medicatio n hives severe Not available 05/30/2022 41109 2 RxNorm Not Available [facility] 3 00:57:51 958 latex environme nt,medica tion Not available Not available Not available 05/30/2022 37765 91 RxNorm Not Available [facility] 3 00:57:51 959 cyclobenz aprine hydrochlo ride medicatio n Not available Not available Not available 05/30/2022 79496 RxNorm Not Available [facility] 3 00:57:52 960 egg extract food,medi cation Not available Not available Not available 05/30/2022 18146 15 RxNorm Not Available [facility] 3 00:57:52 961 Demerol medicatio n Not available Not available Not available 05/30/2022 47081 1 RxNorm Not Available [facility] 3 00:57:52 Medications Name Sig [...] Not Available Not Available Not Avai lable PreserVisi on AREDS bid 12/20 completed Not [...] Not Available Not Available Not Avai lable quetiapine ER 50 mg tablet,ext ended release [...] Available Not Available Not Available Fluzone High-Dose 2019-20 (PF) 180 mcg/0.5 mL intramuscu lar syringe PHARMACI ST ADMINIST ERED IMMUNIZA TION ADMINIST ERED AT TIME OF DISPENSI NG active Not Available Not Available No t Available Fluzone High-Dose Quad 2020-21 (PF) 240 mcg/0.7 mL IM syringe ADM [...] Updated DateTime 12/06/2022 149.86 cm 29.9 kg/m2 14180.39 g 97.6 [degF] Sherrie Rosas RN [facility] [employer] 12/06/2022 14:58:10 Date Recorded Body height Body mass index (BMI) Body weight Body temperature Heart rate Oxygen saturation Oxygen saturation in Arterial blood by Pulse oximetry Systolic blood pressure Diastolic blood pressure Provider Name and Address Organization Details Last Updated DateTime 3 149.86 cm 30.9 kg/m2 20162.6 3 g 98.2 [degF] 74 /min 97 % 97 % 128 mm[Hg] 60 mm[Hg] Selina Cardoso RN [facility] [employer] [facility] 3 15:27:51 Date Recorded Body height Body mass index (BMI) Body weight Body temperature Heart rate Oxygen saturation Oxygen saturation in Arterial blood by Pulse oximetry Systolic blood pressure Diastolic blood pressure Provider Name and Address Organization Details Last Updated DateTime 4 149.86 cm 31.1 kg/m2 85745.2 2 g 98.1 [degF] 72 /min 95 % 95 % 152 mm[Hg] 78 mm[Hg] Selina Cardoso RN [facility] [employer] [facility] 4 15:25:17 Date Recorded Body height Body mass index (BMI) Body weight Body temperature Heart rate Oxygen saturation Oxygen saturation in Arterial blood by Pulse oximetry Systolic blood pressure Diastolic blood pressure Provider Name and Address Organization Details Last Updated DateTime 4 149.86 cm 31.3 kg/m2 51182.8 2 g 98.6 [degF] 66 /min 98 % 98 % 108 mm[Hg] 58 mm[Hg] Ashli Dc RN [facility] [employer] [facility] 4 14:20:11 Date Recorded Body height Body mass index (BMI) Body weight Body temperature Heart rate Oxygen saturation Oxygen saturation in Arterial blood by Pulse oximetry Systolic blood pressure Diastolic blood pressure Provider Name and Address Organization Details Last Updated DateTime 4 149.86 cm 29.5 kg/m2 13081.4 9 g 98.7 [degF] 92 /min 97 % 97 % 114 mm[Hg] 68 mm[Hg] Ashli Dc RN [place] [facility] [employer] 4 16:06:09 Social History Question Answer Notes LastModified by Organizat ion Details LastModified Time Tobacco Smoking Status Never Smoker Not Available [facility] 05/30/2022 00:44:23 What Is Your Level Of Alcohol Consumption? Occasional [id number].[id number] Information not available 05/30/2022 Are You Blind Or Do You Have Difficulty Seeing? No MIGRATION.558936 5035 Information not available 05/30/2022 What Is Your Level Of Caffeine Consumption? Moderate MIGRATION.456665 9876 Information not available 05/30/2022 How Much Tobacco Do You Chew? None MIGRATION.584835 9997 Information not available 05/30/2022 In The 14 Days Before Symptom Onset, Have You Had Close Contact With A Laboratory-confir med COVID-19 While That Case Was Ill? No MIGRATION.365120 8643 Information not available 05/30/2022 In The 14 Days Before Symptom Onset, Have You Had Close Contact With A Person Who Is Under Investigation For COVID-19 While That Person Was Ill? No MIGRATION.475608 8348 Information not available 05/30/2022 Are You Deaf Or Do You Have Serious Difficulty Hearing? No MIGRATION.911990 6651 Information not available 05/30/2022 What Type Of Diet Are You Following? DIABETIC MIGRATION.031743 9663 Information not available 05/30/2022 Which Illicit Or Recreational Drugs Have You Used? None MIGRATION.276973 4358 Information not available 05/30/2022 Do You Or Have You Ever Used E-cigarettes Or Vape? Never Used Electronic Cigarettes MIGRATION.584472 6835 Information not available 05/30/2022 What Is Your Occupation? Retired MIGRATION.555921 6294 Information not available 05/30/2022 What Was The Date Of Your Most Recent Tobacco Screening? 08/06/2023 Information not available 08/14/2023 Have You Ever Been Counseled For Unhealthy Alcohol Use? No [email or web address] Information not available 07/11/2022 Do You Use Your Seat Belt Or Car Seat Routinely? Yes MIGRATION.215377 1509 Information not available 05/30/2022 Do You Or Have You Ever Used Smokeless Tobacco? Never Used Smokeless Tobacco MIGRATION.853885 3366 Information not available 05/30/2022 Do You Use Any Illicit Or Recreational Drugs? No MIGRATION.479057 5931 Information not available 05/30/2022 Has Tobacco Cessation Counseling Been Provided? No MIGRATION.275873 7444 Information not available 05/30/2022 Have You Recently Traveled Abroad? No MIGRATION.231722 7059 Information not available 05/30/2022 Do You Or Have You Ever Used Any Other Forms Of Tobacco Or Nicotine? No MIGRATION.732724 3532 Information not available 05/30/2022 Sex: Female Functional Status Question Answer Note LastModified by Organizat ion Details LastModified Time Do you have difficulty walking or climbing stairs? No MIGRATION.4421995 026 Information not available 05/30/2022 Do you have transportation difficulties? No MIGRATION.7912311 026 Information not available 05/30/2022 Are you able to walk? YESWOREST MIGRATION.2777654 026 Information not available 05/30/2022 Do you have difficulty doing errands alone? No MIGRATION.8939159 026 Information not available 05/30/2022 Are you able to care for yourself? Yes MIGRATION.8712269 026 Information not available 05/30/2022 Do you have difficulty dressing or bathing? No MIGRATION.1066410 026 Information not available 05/30/2022 Mental Status Question Answer Note LastModified by Organizat ion Details LastModified Time Do you have difficulty concentrating, remembering or making decisions? No MIGRATION.[id number] 6 Information not available 05/30/2022 Family History Relationship Description Onset Age of this Age Resolved Age Notes LastModified by Organization Details LastModified Time Maternal Grandmother Diabetes mellitus MIGRATION.702 [id number] Not available 05/30/2022 00:44:40 Mother Diabetes mellitus MIGRATION.186 [id number] Not available 05/30/2022 00:44:40 Mother Family history of stroke MIGRATION.129 2343966 Not available 05/30/2022 00:44:40 Mother Arthritis MIGRATION.091 9270981 Not available 05/30/2022 00:44:40 Mother Hypertensive disorder MIGRATION.139 8530845 Not available 05/30/2022 00:44:40 Mother Heart disease MIGRATION.906 1858082 Not available 05/30/2022 00:44:40 Brother Diabetes mellitus MIGRATION.694 5963046 Not available 05/30/2022 00:44:40 Brother Arthritis MIGRATION.660 5239702 Not available 05/30/2022 00:44:40 Brother Heart disease MIGRATION.382 7991170 Not available 05/30/2022 00:44:40 Sister Diabetes mellitus MIGRATION.344 5880029 Not available 05/30/2022 00:44:40 Sister Family history of stroke MIGRATION.174 4715993 Not available 05/30/2022 00:44:40 Sister Arthritis MIGRATION.783 3167224 Not available 05/30/2022 00:44:40 Sister Hypertensive disorder MIGRATION.124 2718978 Not available 05/30/2022 00:44:40 Sister Heart disease MIGRATION.265 2449080 Not available 05/30/2022 00:44:40 Father Arthritis MIGRATION.360 9898613 Not available 05/30/2022 00:44:40 Father Heart disease MIGRATION.025 6236156 Not available 05/30/2022 00:44:40 Unspecified Relation Family history of malignant neoplasm MIGRATION.197 0501439 Not available 05/30/2022 00:44:40 Notes:2 cousins breast cance r Medical History Condition Response ARTHRITIS Y DIABETES, TYPE Y COPD Y HIGH CHOLESTEROL / HYPERLIPIDEMIA Y DEPRESSION (INCLUDING POST ) Y BACK / NECK PROBLEMS Y HEADACHES/MIGRAINES Y HYPERTENSION Y ANEMIA/BLOOD DISORDER Y OSTEOPOROSIS Y CORONARY ARTERY DISEASE (CAD) Y Gynecological HistoryNo gynecological history recorded. Obstetrics History GPAL:G 0 P 0 0 0 0 Immunizations Vaccine Type Date Status Note Provider Nam e and Address Organization Details Recorded Time zoster recombinant 9 completed Magaly Terry APRN [address], [address], [place], [address], [facility] [employer] [facility] 12/05/2023 07:41:47 zoster recombinant 9 wilbur Terry APRN [address], [address], [place], [address], [facility] [employer] 12/05/2023 07:41:47 Influenza, high-dose, quadrivalent, PF 0 completed Magaly Terry APRN [address], [address], [place], [address], [facility] [employer] 12/05/2023 07:41:47 Influenza, high-dose, quadrivalent, PF 1 completed Magaly Terry APRN [address], [address], [place], [address], [facility] [employer] 12/05/2023 07:41:47 Influenza, high-dose, quadrivalent, PF 2 completed Magaly Terry APRN [address], [address], [place], [address], [facility] [employer] 12/05/2023 07:41:47 COVID-19 vaccine, vector-nr, rS-Ad26, PF, 0.5 mL 1 completed Magaly Terry APRN [address], [address], [place], [address], [facility] [employer] 12/05/2023 07:41:47 COVID-19 vaccine, vector-nr, rS-Ad26, PF, 0.5 mL 1 completed Magaly Terry APRN [address], [address], [place], [address], [facility] [employer] 12/05/2023 07:41:47 Influenza, high-dose, trivalent, PF 9 completed Magaly Terry APRN [address], [address], [place], [address], [facility] [employer] 12/05/2023 07:41:47 DTP 2 completed Not Available [facility] 05/30/2022 00:57:44 Influenza, split virus, quadrivalent, preservative 0 completed Magaly Terry APRN [address], [address], [place], [address], [place] [facility] [employer] 12/05/2023 07:41:47 pneumococcal polysaccharide PPV23 0 completed Not Available [facility] 05/30/2022 00:57:44 Pneumococcal conjugate PCV 13 9 completed Not Available [facility] 05/30/2022 00:57:44 Influenza, high-dose, quadrivalent, PF 3 completed [facility] [place] [employer] 02/05/2023 18:11:15 Past Encounters Encounter ID Performer Location Encounter Start Date Encounter Closed Date Diagnosis/Indication Diagnosis SNOMED-CT Code Diagnosis ICD10 Code Diagnosis Note [id number] [facility] [address] [place] [address] 05/30/2020 00:00:00 05/30/2020 16:11:25 [id number] [facility] [place] [address] [facility] [address] [place] [address] 08/24/2020 00:00:00 08/25/2020 16:07:39 [id number] [facility] [place] [address] [facility] [address] [place] [address] 11/22/2020 00:00:00 11/22/2020 14:17:09 [id number] [facility] [place] [address] [facility] [address] [place] [address] 06/22/2021 00:00:00 06/28/2021 19:55:01 [id number] [facility] [address], [facility] [address] [place] [address] 07/10/2021 00:00:00 07/25/2021 23:15:15 [id number] [facility] [address], [facility] [address] [place] [address] 07/17/2021 00:00:00 07/25/2021 23:10:50 [id number] [facility] [place] [address] [facility] [address] [place] [address] 07/20/2021 00:00:00 07/28/2021 10:34:36 [id number] [facility] [place] [address] [place] [address] 08/21/2021 00:00:00 08/21/2021 12:53:12 [id number] [facility] [place] [address] [place] [address], [address] [place] [address] 08/24/2021 00:00:00 08/24/2021 15:21:53 [id number] [facility] [place] [address] [place] [address] 09/19/2021 00:00:00 09/28/2021 09:11:56 [id number] [facility] [address], [facility] [address] [place] [address] 10/06/2021 00:00:00 10/06/2021 10:29:12 [id number] [facility] [address], [facility] [address] [place] [address] 10/26/2021 00:00:00 10/26/2021 14:30:05 [id number] [facility] [place] [address] [place] [address] 11/28/2021 00:00:00 11/28/2021 10:12:21 [id number] _ATHENA_M IGRATION_ DEFAULT_1 _1 , 12/20/2021 00:00:00 12/20/2021 12:09:40 [id number] _ATHENA_M IGRATION_ DEFAULT_1 _1 , 01/10/2022 00:00:00 01/10/2022 16:06:09 [id number] [facility] [place] [address] [place] [address] 02/28/2022 00:00:00 02/28/2022 14:07:31 [id number] [facility] [place] [address] [place] [address] 03/14/2022 00:00:00 03/30/2022 11:29:26 [id number] [facility] [place] [address] [facility] [address] [place] [address] 03/16/2022 00:00:00 03/16/2022 18:01:17 [id number] [facility] [place] [address] [facility] [address] [place] [address] 04/11/2022 00:00:00 04/11/2022 12:33:00 [id number] [facility] [place] [address] [facility] [address] [place] [address] 04/24/2022 00:00:00 04/25/2022 18:13:59 [id number] [facility] [place] [address] [facility] [address] [place] [address] 05/23/2022 00:00:00 05/28/2022 17:45:36 [id number] Flex Tompkins MD [facility] [place] [address] [facility] [address] [place] [address] 05/30/2022 17:11:30 05/31/2022 11:38:51 Hyponatremia 74537953 E87.1 likely contributi ng to fallscheck bmp, may need to temporaril y start sodium replacemen t Anemia 111744835 D64.9 recheck labs Serotonin syndrome 23954 9000 G25.79 improved since d/c citalopram mood doing well Degenerati on of cervical intervertebral disc 97797930 M50.30 scheduled for surgery on Saturdaywill correct any electrolyt e abnormalit ies on labs drawn today and clear for surgerypt has significan t quality of life issues due to neck pain [id number] JORDYN Phan [facility] [place] [address] [facility] [address] [place] [address] 07/11/2022 15:10:56 07/11/2022 16:08:11 Hyponatremia 04073600 E87.1 Recheck sodium levels. Continue sodium supplement . Chronic ki dney disease stage 3 083340205 N18.30 Continue f/u with Dr. Reyna (nephrolog ist). Degenerati on of cervical intervertebral disc 77990999 M50.30 Currently in collar. States she is doing well, minimal pain. Will f/u with surgeon 07/18/22. [id number] Flex Tompkins MD [facility] Primary Care [facility] [address] [facility] [address] [place] [address] 08/06/2022 14:07:54 08/06/2022 15:03:33 Dysfunction of left eustachian tube 7566963938 050368 H69.92 Benign ess ential hypertension 9491593 I10 Hyperthyroidism 76279922 E05.90 Iron defic iency anemia 17598147 D50.9 Type 2 mabel betes mellitus without complication 120451368 E11.9 [id number] Flex Tompkins MD [facility] Primary Care [facility] [address] [facility] [address] [place] [address] 09/11/2022 14:13:22 09/11/2022 14:39:54 Dizziness 390901924 R42 likely due to degenerati ve disk disease cervical spinecheck US carotid Gout 24723934 M10.9 ?gout attackchec k uric acid Essential hypertension 59178437 I10 stable Iron defic iency anemia 19558242 D50.9 Type 2 mabel betes mellitus without complication 836129987 E11.9 [id number] Noah Rodrigues MD [facility] [facility] [address] [place] [address] 09/20/2022 15:17:33 09/20/2022 16:04:27 Chronic sinusitis 93112445 J32.9 [id number] Noah Rodrigues MD [facility] [address] [place] [address] 10/24/2022 15:29:01 10/24/2022 16:16:21 Chronic sinusitis 12661314 J32.9 [id number] Flex Tompkins MD [facility] Primary Care [facility] [address] [place] [address] 10/26/2022 15:25:01 10/26/2022 15:31:35 [id number] Flex Tompkins MD [facility] Primary [facility] [place] [address] [place] [address] 11/02/2022 11:05:59 11/02/2022 11:36:05 Dizziness [id number] R42 US carotid normalLabs stablehas f/u with ENT, CT did show sinus thickening if no improvemen t after sinus treatment, will refer to neurology for further evaluation reviewed s/s that warrant urgent/александр rgent eval in meantime [id number] Flex Tompkins MD [facility] [place] [address] [facility] [address] [place] [address] 11/28/2022 15:58:32 12/24/2022 15:44:59 [id number] Noah Rodrigues MD [facility] [address] [place] [address] 12/06/2022 14:47:54 12/06/2022 15:52:47 Chronic sinusitis 02426531 J32.9 Benign par oxysmal positional vertigo 338237997 H81.10 [id number] Flex Tompkins MD [facility] [place] [address] [facility] [address] [place] [address] 02/05/2023 15:22:05 02/05/2023 15:48:32 Administration of influenza vaccine 77357331 Z23 Dizziness 119319290 R42 US carotid normalLabs stablehas f/u with ENT, CT did show sinus thickening if no improvemen t after sinus treatment, will refer to neurology for further evaluation reviewed s/s that warrant urgent/александр rgent eval in meantime update 02/05/23: resolved, f/u prn [id number] Flex Tompkins MD [facility] [place] [address] 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 EGD 12/21 with recommenda tion to repeat EGD 12/23 Chronic ki dney disease stage 3 886943491 N18.30 I12.9 E55.9 E11.22 sees nephrology Benign ess ential hypertension 7660913 I10 check labs, if GFR is acceptable , will increase lisinopril to 40 mg daily Chronic ob structive pulmonary disease 61295342 J44.9 stable Hyperlipidemia 18512429 E78.5 stable Hypothyroidism 66477517 E03.9 stable Iron defic iency anemia 98915493 D50.9 uncertain statuschec k labs Primary fi bromyalgia syndrome 11631130 M79.7 stable Type 2 mabel betes mellitus without complication 262776311 E11.9 Eye exam up to datepodiat ry referral givencheck labs Gout 95326295 M10.9 stablerech blanca uric acid Degenerati on of lumbar intervertebral disc 44168897 M51.36 will check xrays, has seen pain mgmt in the past Pain of le ft hip joint 9966790542 91186 M25.552 Eruption 527412853 R21 [id number] CEZAR Albert [facility] Care [address] [place] [address] 09/19/2023 14:13:42 09/19/2023 15:09:46 Diabetes mellitus 39751097 E11.9 -hx of positive use with nicolas-wing hartman blood sugar occ, 120s to 150s-trial ozempic, f/u in 1 month [id number] CEZAR Albert [facility] Care [address] [place] [address] 11/21/2023 16:00:44 11/21/2023 16:49:44 Diabetes mellitus 23975566 E11.9 no negative side effects noted with use of ozempicnot es blood sugars being as low as the 80sencoura ge snack before bed time Neuropathy 823248467 G62 .9 Gout 52112843 M10.9 Renewal of prescription 575682629 Z76.0 Health Concerns Section Related Observation LastModified by Organization Detai ls LastModified Time None Recorded Concern Status LastModified by Organization Details LastModified Time None Recorded Advance Directives Directive None Recorded Payers Encounter Date Sequence Insurance Name Policy Number Policy Inman Covered Member ID Inman Member ID Guarantor Name 12/06/2022 1 [facility] (MEDICARE REPLACEMENT/A DVANTAGE - HMO) [id number] Kandace Cole [id number] Kandace Cole 02/05/2023 1 [facility] (MEDICARE REPLACEMENT/A DVANTAGE - HMO) [id number] Kandace Cole [id number] Kandace Cole 08/06/2023 1 [facility] (MEDICARE REPLACEMENT/A DVANTAGE - HMO) [id number] Kandace Cole [id number] Kandace Cole 09/19/2023 1 [facility] (MEDICARE REPLACEMENT/A DVANTAGE - HMO) [id number] Kandace Cole [id number] Kandace Cole 11/21/2023 1 [facility] (MEDICARE REPLACEMENT/A DVANTAGE - HMO) [id number] Kandace Cole [id number] Kandace Cole Notes Date Note Type Note Provider Name and Address Organization Details Recorded Time 12/06/2022 text/html this patient reports that antibiotics were successful and eliminating her sinusitis symptoms. However she does have left-sided hearing loss and dizziness. This follows a fall. 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 Noah Rodrigues MD [address] [place] [address], [facility] [address], [place], [address], [facility] [employer] 12/06/2022 15:22:51 02/05/2023 text/html had neck surgery [...] well. Flex Tompkins MD [address], [place], [address], [employer] 02/05/2023 15:43:35 08/06/2023 text/html Blood pressure h as been elevated Blood sugars have been fairly good pain down left leg, hard to bear weight, constantno numbness rash started about 3 weeks ago-top of foot, elbows and knees. Using athletes foot cream Flex Tompkins MD [address] [place], [place], [address], [employer] 08/14/2023 17:47:57 09/19/2023 text/html pt is here to review labs/imaging CEZAR Albert [address], [place], [address], [employer] 09/19/2023 14:36:16 11/21/2023 text/html pt is here for f /u on meds CEZAR Albert [address], [place], [address], [employer] 11/21/2023 16:25:25 OBGyn Episode No OBEpisode recorded.
== END 2024-06-08 15:05 | disposition home or self-care (01) ==
LOC: ANHIMG 15:05
PROVIDERS: PCP Nurse Practitioner Family; Visit Provider Nurse Practitioner Family
DX: Z12.31 Encounter for screening mammogram for malignant neoplasm of breast (principal)
CPT/HCPCS: 77063; 77067

== ENCOUNTER 2024-10-15 02:35 | Day surgery (SDC) | payer MEDICARE, SELFPAY ==
[2024-10-14 09:05] VITALS: BMI 25.8
--- OUTSIDE RECORDS SUMMARY | 2024-10-15 02:38 | XMS_ITS | Encounter Summary ---
Author Organization [facility] Healthcare Address [address] [place] [address] Care Team Providers Care Comb Capper Name Role Phone Cheri Calderon CONTRACTS MANAGER Primary Care Provider [phone] Charla Bo LPN Unavailable [phone] Encounter Details Date Type Department Care Team (Late st Contact Info) Description 08/25/2024 Results Follow-Up [facility] Medical [facility] Family Medicine [address] [facility] [address] [place] [address] Cheri Calderon, CONTRACTS MANAGER [address] [facility] [address] [place] [address] CBC with auto differential, Iron profile w/ IBC Social History Tobacco Use Types Packs/Day Years Used Date Smoking Tobacco: Never Smokeless Tobacco: Never Alcohol Use Standard Drinks/Week Comments Never 0 (1 standard drink = 0.6 oz pur e alcohol) AUDIT-C Answer Date Recorded Q1: How often do you have a drink containing alc ohol? Monthly or less 08/26/2024 Q2: How many drinks containi ng alcohol do you have on a typical day when you are drinking? 1 or 2 08/26/2024 Q3: How often do you have si x or more drinks on one occasion? Never 08/26/2024 PHQ-2 Answer Date Recorded PHQ-2 Total Score (If total score is 3 or more points, staff should administer the PHQ-9) 1 08/11/2024 Personal Safety Answer Date Recorded Have you ever been in or are you currently in a harmful physical or emotional relationship or is someone making you feel afraid or unsafe? 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 Monthly or less 08/26/2024 12:52 PM Yaritza Menon RN Q2: How many drinks containing alcohol do you have on a typical day when you are drinking? 1 or 2 08/26/2024 12:52 PM Yaritza Menon RN Q3: How often do you have six or more drinks on one occasion? Never 08/26/2024 12:52 PM Yaritza Menon RN documented as of this encounter Miscellaneous Notes * Telephone Encounter - Cain Mendoza - 08/31/2024 4:01 PM CDT Call Back Caller???s Concern: Kandace returning call from practice to discuss lab results. INFRASTRUCTURE TECH relayed result note from Cheri Calderon. Pt verbalized understanding and had no questions Does message need to be routed? No * Telephone Encounter - Camilla Forbes MA - 08/28/2024 4:43 PM CDT Lab work seen on my chart and message left for patient to call office. documented in this encounter Plan of Treatment Not on file documented as of this encounter Visit Diagnoses Not on filedocumented in this encounter Care Teams Comb Capper Relationship Specialty Start Date End Date Cheri Calderon, NEAL [address] [facility] [address] [place] [address] PCP - General Internal Medicine 05/11/24 Charla Bo, LEANDRA [address] [place] [address] J2Ee Programmer 09/04/24 09/04/24 documented as of this encounter
--- OUTSIDE RECORDS SUMMARY | 2024-10-15 02:38 | XMS_ITS | Encounter Summary ---
Author Organization [facility] Address [address] [facility] [address] Care Team Providers Care Metal Punch Press Operator Name Role Phone Karrie Phillips MD Primary Care Provider [phone] Encounter Details Date Type Department Care Team (Late st Contact Info) Description 02/16/2022 Ophth Exam [facility] [address] [facility], [place] [address] Pi, [place] [address] [address] Social History Tobacco Use Types [...] money to get more. 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 Never 02/16/2022 3:53 PM Victoria Sahu RN Q2: How many drinks containing alcohol do you have on a typical day when you are drinking? Patient does not drink 02/16/2022 3:53 PM Victoria Sahu RN Q3: How often do you have six or more drinks on one occasion? Never 02/16/2022 3:53 PM Victoria Sahu RN * Audit-C Score Answer Date of Assessment Author 0 02/16/2022 3:53 PM Vane Sahu RN * Is person deaf or have serious hearing difficulty? Answer Date of Assessment Author No 02/16/2022 3:53 PM Vane Sahu RN * Is person blind or have serious difficulty seeing? Answer Date of Assessment Author No 02/16/2022 3:53 PM Vane Sahu RN * Does person have serious difficulty walking/climbing stairs? Answer Date of Assessment Author No 02/16/2022 3:53 PM Vane Sahu RN * Does person have difficulty dressing/bathing? Answer Date of Assessment Author No 02/16/2022 3:53 PM Vane Sahu RN * Does person have difficulty doing errands alone? Answer Date of Assessment Author No 02/16/2022 3:53 PM Vane Sahu RN documented as of this encounter Mental Status * Does person have difficulty concentrating/remembering/making decisions? Answer Entry Date Author No 02/16/2022 3:53 PM Vane Sahu RN documented in this encounter Plan of Treatment Not on file documented as of this encounter Visit Diagnoses Not on filedocumented in this encounter Care Teams Metal Punch Press Operator Relationship Specialty Start Date End Date Karrie Phillips MD [address] [place] [address] PCP - General 03/13/22 documented as of this encounter
--- OUTSIDE RECORDS SUMMARY | 2024-10-15 02:38 | XMS_ITS | Continuity of Care Document ---
Author Organization [facility] Address [address] [address] Phone Care Team Providers Care Renovator Machine Operator Name Role Phone Daniel Corrales MD Unavailable Unavailable Procedures Procedure Date Special Reports Or Forms Miscellaneous Advance Directives Directive Yes / No Effective Date File Name No Information Encounters Encounter Description Practice Location Reason(s) For Visit Diagnoses Date Provider Providers Copied on Encounter [facility], [address] [place], [place] [address], , [id number], tel:[phone] [facility] No Information [address] [place] [place], [id number], [place]. tel:[phone] [facility], [address] [place], [place] [address], , [id number], tel:[phone] [facility] No Information [address] [employer] [facility], [id number], [place]. tel:[phone] Family History Family Member Type Diagnosis Age At Onset No Information Payers Payer name Insurance type Covered green party ID Authoriza tion(s) No Information Social [...]
--- OUTSIDE RECORDS SUMMARY | 2024-10-15 02:38 | XMS_ITS | Clinical Summary ---
Author Organization [facility] Address [address] [place] [address] Care Team Providers Care Contingents Supervisor Name Role Phone None, Provider MD Primary [...] Comments Blood Pressure 102/68 05/27/2022 1:18 PM NEON PUMPER Pulse 70 05/27/2022 1:18 PM NEON PUMPER Temperature 36.8 C (98.3 F) 05/27/2022 1:18 PM NEON PUMPER Respiratory Rate 18 05/27/2022 1:18 PM NEON PUMPER Oxygen Saturation 100% 05/27/2022 1:18 PM NEON PUMPER Inhaled Oxygen Concentration - - Weight 64.7 kg (142 lb 10.2 oz) 05/27/2022 1:18 PM NEON PUMPER Height 154.9 cm (5' 1) 05/27/2022 1:18 PM NEON PUMPER Body Mass Index 26.95 05/27/2022 1:18 PM NEON PUMPER Plan of Treatment Health Maintenance Due Date Last Done Comments Colorectal Cancer Screening Colonoscopy (10 Years) 1950 Hepatitis C 02/12/1968 Mammogram Screening 1990 Annual Medicare Wellness Visit 2015 Dexa Scan (General) 2015 DTaP, Tdap and Td Vaccines ( 2 - Tdap) 07/17/2021 07/18/2011 COVID-19 Vaccine (2023-2 5 season) 2023 01/25/2021, 06/03/2020 RSV Immunization or 60+ Years (1 - 1-dose 75+ series) 2025 Zoster Vaccines Completed 03/18/2019, 01/12/2019 Pneumococcal Vaccine: 50+ Years Completed 07/01/2019, 06/30/2018 Meningococcal B Vaccine Aged Out No l onger eligible based on patient's age to complete this topic Meningococcal Vaccine Aged Out No tiana nohemy eligible based on patient's age to complete this topic RSV Immunizations Under 20 Months Aged Out No longer eligible b ased on patient's age to complete this topic [place] [address] Care Teams Contingents Supervisor Relationship Specialty Start Date End Date None, Provider, PCP - General UNKNOWN PHYSICIAN SPECIALTY 05/27/22
--- OUTSIDE RECORDS SUMMARY | 2024-10-15 02:38 | XMS_ITS | Encounter Summary ---
Author Organization [facility] Address [address] [place] [address] Care Team Providers Care Production Maintenance Technician Name Role Phone Karrie Phillips MD Primary Care Provider [phone] Encounter Details Date Type Department Care Team (Late st Contact Info) Description 02/15/2022 Ophth Exam [facility] [address] [place] [address] [phone] Makenzie Sin DO [address] [place] [address] Social History Tobacco Use Types Packs/Day Years [...] to get more. Never true 02/16/2022 Comments Unknown Sex and Gender Information Value Date Recorded Sex Assigned at Not on file Legal Sex Female 9:13 AM BOX BLANK MACHINE OPERATOR HELPER Gender Identity Not on file Sexual [...] 0 02/16/2022 3:53 PM Vane Sahu RN documented as of this encounter Plan of Treatment Not on file documented as of this encounter Visit Diagnoses Not on filedocumented in this encounter Additional Health Concerns Infection Onset Date Last Indicated Resolved Time COVID-19 Under Investigation 02/15/2022 02/15/2022 02/15/2022 3:59 PM BOX BLANK MACHINE OPERATOR HELPER documented as of this encounter Care Teams Production Maintenance Technician Relationship Specialty Start Date End Date Karrie Phillips MD [address] [place] [address] PCP - General 03/13/22 documented as of this encounter
--- OUTSIDE RECORDS SUMMARY | 2024-10-15 02:38 | XMS_ITS | Patient Health Record ---
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) Active confirmed Problem 687596511 Fibromyalgia (M79.7) Active confirmed Problem 06371537 Essential hypertension (I10) Active confirmed Problem 167187709 Mixed hyperlipidemia (E78.2) Active confirmed Problem 44625235 Recurrent major depressive disorder, in partial remission (F33.41) Active confirmed Problem 312683771 MCTD (mixed connective tissue disease) (M35.1) Active confirmed Problem 432967236 Diabetes 1.5, 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 Plan Of Treatment No Information Insurance Providers Payer Name Payer Address Payer Phone Subscriber Number Group Number Insured Name Patient Relationship to Insured Coverage Start Date Coverage End Date A[employer] MCR [employer] [address] [address] [place] [address] [id number] [id number] Kandace Cole Self - patient is the insured 7 Medical (General) History Medical History History ICD Code Ferrell's esophagus CAD Connective tissue disease COPD Mild depression Diabetes Fibromyalgia Hyperlipidemia Hypertension NSAID exterminator helper use Iron deficiency anemia Osteoarthritis Raynaud's disease [...]
--- OUTSIDE RECORDS SUMMARY | 2024-10-15 02:38 | XMS_ITS | Clinical Summary ---
Author Organization [facility] [place] [address] Address [address] [place] [address] Care Team Providers Care Director Engineering Name Role Phone Cheri Calderon NP Primary Care Provider [phone] Allergies Active Allergy Reactions Criticality Noted Date Comments Bethanechol Unknown 12/09/2009 Bethanechol Chloride Other (See comments) 12/09/2009 Cyclobenzaprine Hives Medium 09/07/2018 Egg Derived Hives Medium 09/07/2018 Other reaction(s): Unknown Egg Extract Hives Medium 08/26/2024 Egg White Hives Medium 12/09/2009 Eggshell Membrane Hives Medium 09/07/2018 Fluoxetine Stomach upset Low 09/07/2018 Latex Hives Medium 09/07/2018 Meperidine Nausea & Vomiting Low 09/07/2018 Naproxen Unknown 09/07/2018 Sulfa (Sulfonamide Antibiotics) Unknown 09/07/2018 Travoprost Unknown 09/07/2018 Vit C-Vit W-Pufcvo-Qsvelqwc Other (See comments) 08/26/2024 Medications buPROPion SR (WELLBUTRIN SR) 100 mg 12 hr tablet Take 1 tablet (100 mg total) by mouth 2 (two) times a day Active latanoprost (XALATAN) 0.005 % ophthalmic solution daily [address] (PROTONIX) 40 mg EC tablet Take 1 tablet (40 mg total) by mouth daily Active pravastatin (PRAVACHOL) 40 mg tablet Take 1 tablet (40 mg total) by mouth nightly Active cholecalciferol (VITAMIN D-3) 2000 unit tablet Take 1 tablet (2,000 Units total) by mouth 2 (two) times a day Active calcitRIOL (ROCALTROL) 0.25 mcg capsule Take 1 capsule (0.25 mcg total) by mouth 3 (three) times a week Active polyvinyl alcohol (LIQUIFILM TEARS) 1.4 % ophthalmic solution Administer 1 drop into affected eye(s) every 4 (four) hours as needed 2 Active vitamins A,C,M-qvmm-bdclkj (PreserVision AREDS) 2,148 mcg-113 mg-45 mg-17.4mg tablet 1 tablet Act shakir allopurinoL (ZYLOPRIM) 100 mg tablet Take 1 tablet (100 mg total) by mouth daily 4 Active carvediloL (COREG) 12.5 mg tablet Take 1 tablet (12.5 mg total) by mouth 2 (two) times a day 4 Active QUEtiapine XR (SEROquel XR) 50 mg tablet extended release 24 hr Take 2 tablets (100 mg total) by mouth nightly 4 Active furosemide (LASIX) 20 mg tabletIndications: Edema, lower extremity Take 1 tablet (20 mg total) by mouth daily for 10 days, THEN 1 tablet (20 mg total) every other day. One pill every other day. 190 tablet 5 026 Active meclizine (ANTIVERT) 25 mg tablet Take 1 tablet (25 mg total) by mouth 3 (three) times a day as needed for dizziness 30 tablet 3 5 Active semaglutide (Ozempic) 0.25 mg or 0.5 mg (2 mg/3 mL) pen injector injectionIndicatio ns:Hypertension associated with diabetes (HCC) INJECT 0.5 MG UNDER THE SKIN EVERY 7 DAYS 10.5 mL 1 5 Active mupirocin (BACTROBAN) 2 % ointmentIndication s:Sore nose Apply topically 3 (three) times a day 22 g 1 5 Active acetaminophen (TYLENOL) 500 mg tablet every 6 hours Active fluticasone propionate (FLONASE) 50 mcg/actuation nasal spray daily as needed 3 Active ondansetron ODT (ZOFRAN-ODT) 4 mg disintegrating tablet DISSOLVE ONE TABLET BY MOUTH EVERY 6 HOURS NEEDED FORNAUSEA AND VOMITING 3 Active sodium chloride (OCEAN) 0.65 % drops Administer 1 spray into affected nostril(s) as needed 2 Active tavaborole 5 % solution with applicator APPLY TOPICALLY TO AFFECTED NAILS ONCE DAILY 5 Active clopidogreL (PLAVIX) 75 mg tabletIndications: coronary artery disease Take 1 tablet (75 mg total) by mouth daily 30 tablet 11 5 026 Active amLODIPine (NORVASC) 5 mg tablet TAKE 1 TABLET BY MOUTH EVERY MORNING 90 tablet 1 5 Active Active Problems Problem Noted Date Diagnosed Date Presence of Amulet left atrial appendage closure device 09/02/2024 H/O: GI bleed 08/11/2024 BMI 25.0-25.9,adult 08/11/2024 Assessment & Plan (08/11/2024 12:50 PM CDT): Discussed the patients BMI: The BMI is [...] 02/23/2019 Assessment & Plan (05/12/2024 11:22 AM SALES ADMINISTRATION SPECIALIST): This is a significant, separately identifiable problem that was evaluated and managed on the same day as the wellness exam Mixed hyperlipidemia 02/23/2019 Type 2 diabetes mellitus with hyperlipidemia Degeneration of cervical intervertebral disc 12/2009 Resolved Problems Problem Noted Date Diagnosed Date Resolved Date Obesity (BMI 30-39.9) 05/12/20242024 Assessment & Plan (05/12/2024 10:46 AM SALES ADMINISTRATION SPECIALIST): Discussed the patients BMI: The BMI is above average BMI management is complete. BMI follow-up includes: Nutrition Counseling and education provided Encounters Date Type Department Care Team Description 10/09/2024 ACO Medication Access [facility] Accountable Care Organization [address] [place] [id number] Elizabeth Lilly CPhT 09/30/2024 ACO Outreach [facility] Accountable Care [address] [address] Marlena Brooks RN 09/23/2024 Telephone [facility] Medical Group Cardiology [address] [facility] [address] [place] [phone] Zaina Murillo MD 09/14/2024 10:00 AM CDT Office Visit [facility] Medical Group Cardiology [address] [facility] [address] [place] [phone] Rhea Torres NP Atrial fibrillation, unspecified type (HCC); Presence of Amulet left atrial appendage closure device; History of GI bleed; Hospital discharge follow-up 09/04/2024 Telephone [facility] Medical [facility] Cardiology [address] [facility] [place] [address] Alyssa Briseno NP 09/04/2024 ANTELMO IP Outreach [address] [address] Charla Bo LPN 09/02/2024 10:00 AM CDT - 09/02/2024 11:30 AM CDT Surgery [facility]iac [facility]atheter[facility] [address] [place] [address] Zaina Murillo MD PERC LANDY CLOSE W/IMPLANT [id number] 09/02/2024 9:46 AM CDT Anesthesia Event [facility] [address] [place] [address] Drew Cervantes MD Barnhart, Lynlee Jo, NP 09/02/2024 7:35 AM CDT - 09/02/2024 11:59 PM CDT Hospital Encounter [facility] [address] [place] [address] Discharge Disposition: Discharge to home or self care 09/02/2024 7:11 AM CDT - 09/03/2024 3:06 PM CDT Hospital Encounter [address] [address] Zaina Murillo MD Presence of Amulet left atrial appendage closure device [Z95.818] (Primary Dx); Atrial fibrillation (HCC); H/O: GI bleed; Hypertension associated with diabetes (HCC) Discharge Disposition: Discharge to home or self care 08/26/2024 12:15 PM CDT Pre-Admission Testing [facility] Pre Anesthesia Testing [address] [place] [address] Encounter for preadmission testing (Primary Dx); Other specified hemorrhagic conditions 08/25/2024 Results Follow-Up [facility] Family [facility] [address] [facility] [address] [place] [address] Cheri Calderon NP CBC with auto differential, Iron profile w/ IBC 08/19/2024 8:06 AM CDT Anesthesia Event [facility] GI [facility] [id number] [place] [address] Maite Hernandes MD PhD 08/19/2024 8:00 AM CDT - 08/19/2024 8:30 AM CDT Surgery [facility] [id number] [place] [address] Zaina Murillo MD TRANSESOPHAGEAL ECHOCARDIOGRAM 08/19/2024 5:56 AM CDT - 08/19/2024 11:59 PM CDT Hospital Encounter [facility] [address] [place] [address] Atrial fibrillation, unspecified type (HCC) Discharge Disposition: Discharge to home or self care 08/19/2024 5:56 AM CDT - 08/19/2024 9:21 AM CDT Hospital Encounter [facility] [id number] [place] [address] Zaina Murillo MD Discharge Disposition: Discharge to home or self care 08/17/[address] [facility] Cardiology [address] [facility] [address] [place] [phone] Zaina Murillo MD 08/14/2024 2:30 PM CDT Office Visit [facility] Cardiology [address] [place] [address] [address] [place] [address] Rhea Torres NP Paroxysmal atrial fibrillation (HCC) (Primary Dx); History of GI bleed; Type 2 diabetes mellitus with stage 3b chronic kidney disease, without long-term current use of insulin (HCC) 08/13/2024 Orders Only [facility] Medical Group Internal Medicine at [address] [place] [phone] Dinesh Mccormick MD 08/12/2024 Telephone [facility] Medical [facility] Cardiology [address] [facility] [address] [place] [address] Zaina Murillo MD 08/11/2024 1:30 PM CDT Office Visit [facility] Medical Group Internal Medicine at [place] [address] [place] [address] Cheri Calderon NP Hypertension associated with diabetes (HCC) (Primary Dx); BMI 25.0-25.9,adult; Type 2 diabetes mellitus with hyperlipidemia (HCC); Sore nose; Abnormal finding of blood chemistry, unspecified; Post-menopausal 08/11/2024 Orders Only [facility] Cardiac [facility]atheterization [facility] [address] [place] [address] Zaina Murillo MD Atrial fibrillation (HCC) (Primary Dx); H/O: GI bleed 08/10/2024 12:30 PM CDT Office Visit [facility] Medical Group Cardiology [address] [facility] [address] [place] [phone] Zaina Murillo MD Hypertension associated with diabetes (HCC) (Primary Dx); Paroxysmal atrial fibrillation (HCC); Mixed hyperlipidemia; Stage 3a chronic kidney disease (HCC); Dyspnea on exertion; Type 2 diabetes mellitus with hyperlipidemia (HCC); H/O: GI bleed 08/06/2024 Telephone [facility] Medical Group Internal Medicine at [place] [address] [place] [phone] Cheri Calderon NP 07/29/[address] [facility] Internal Medicine at [place] [address] [facility] [address] [place] [address] Cheri Calderon NP from Last 3 Months Immunizations Immunization Administration Dates Next Due DTP 07/18/2011 Influenza LAIV (Nasal) 12/09/2019 Influenza, Quadrivalent, Hig h Dose, Preservative Free, Intrr 12/08/2019,01/25/2019 Influenza, Quadrivalent, Spl it, Intramuscular 12/09/2019,12/30/2018 Influenza, Trivalent, High D ose, Split, Preservative Free, Intramuscular 12/08/2019,01/25/2019 Influenza, Unspecified 04/01/2024(Deferr ed: Patient Refused - off season),04/01/2024(Deferred: Patient Refused),04/01/2023,04/01/2023(Deferre d: Patient Refused) PicksPal (J&J) SARS-CoV-2 Vaccination 06/08/2020 Pneumococcal Conjugate PCV 13 06/30/2018 Pneumococcal Polysaccharide PPV23 07/01/2019 ZOSTER Recombinant 03/18/2019,01/12/2019 Surgical History Surgery Date Site/Laterality Comments LAMINECTOMY APPENDECTOMY HYSTERECTOMY CATARACT EXTRACTION CARPAL TUNNEL RELEASE Bilateral TONSILLECTOMY ROTATOR CUFF REPAIR Bilateral IMPLANTABLE CARDIAC DEVICE 09/02/2024 N/A Procedure: PERC LANDY CLOSE W/IMPLANT [id number]; Surgeon: Zaina Murillo MD; Location: CARDIAC [employer]PERATOR; Service: Cardiovascular; Laterality: N/A; Medical devices from this surgery are in the Medical Devices section. Medical History Medical History Date Comments Hypertension Heart murmur Hyperlipidemia Raynaud's disease Depression Ferrell's esophagus Iron deficiency anemia COPD (chronic obstructive pu lmonary disease) (HCC) Sleep apnea Vertigo Dyspnea on exertion Atrial fibrillation (HCC) Type 2 diabetes mellitus ([facility]) Hyposmolality Hyperthyroidism Glaucoma Macular degeneration History of GI bleed 04/2024 [facility], hospitalized 3 weeks Transfusion history 04/2024 iron transfu nely at [facility] Chronic kidney disease Hyperkalemia Anemia Fibromyalgia Arthritis Migraine Syncope last time about 2 years ago GERD (gastroesophageal reflux disease) Peptic ulceration Family History Medical History Relation Name Comments Heart attack Brother Heart attack Mother Relation Name Status Comments Brother (Age 69) HEART SHEA CK Father (Age 59) MESOTHELIO PAM Mother (Age 62) LEUKEMIA Social History Tobacco Use Types Packs/Day Years Used Date Smoking Tobacco: Never Passive Smoke Exposure: Past Smokeless Tobacco: Never Tobacco Cessation:Counseling Given: Not [...] making you feel afraid or unsafe? Denies 09/02/2024 Comments No Sex and Gender Information Value Date Recorded Sex Assigned at Not on file Legal Sex Female 8:14 PM SALES ADMINISTRATION SPECIALIST Gender Identity Not on file Sexual Orientation Not on file Obstetrics History Last Filed Vital Signs Vital Sign Reading Time Taken Comments Blood Pressure 114/54 09/14/2024 9:52 AM CDT Pulse 82 09/14/2024 9:52 AM CDT Temperature 36.7 C (98.1 F) 09/03/2024 2:05 PM CDT Respiratory Rate 18 09/03/2024 2:05 PM CDT Oxygen Saturation 99% 09/14/2024 9:52 AM CDT Inhaled Oxygen Concentration - - Weight 58.1 kg (128 lb) 09/14/2024 9:52 AM CDT Height 149.9 cm (4' 11) 09/14/2024 9:52 AM CDT Body Mass Index 25.85 09/14/2024 9:52 AM CDT Plan of Treatment Health Maintenance Due Date Last Done Comments Colon Cancer Screening-Colonoscopy 1950 Hepatitis C Screening 1950 Osteoporosis Screening-Bone Density Scan 1950 Foot Exam 1950 Hepatitis B Screening 02/12/1968 DTaP/Tdap/Td Vaccine (2 - Tdap) 07/17/2021 2 Covid-19 Vaccine (3 - 2023-2 5 season) 2023 01/25/2021, 06/08/2020 Influenza Vaccine (#1) 2024 , 12/09/2019, 12/09/2019, Additional history exists Hemoglobin A1C 12/03/2024 06/02/2024, 03/0 10/2022, 02/16/2022 Well Visit 65+ 05/12/2025 05/12/2024 Albumin Creatinine Ratio, Urine 06/02/2025 Lipid Panel 06/02/2025 06/02/2024, 1004/2023, 10/22/2022, Additional history exists Breast Cancer Screening-Mammogram 06/09/2025 025 Depression Screening 08/11/2025 08/11/2024, 05/12/19 25 Dilated Eye Exam 08/13/2025 08/13/2024 Fall Risk Assessment 09/03/2025 09/03/2024, 08/11/2024, 05/12/2024 eGFR 09/03/2025 09/03/2024, 07/31, 06/02/2024 Zoster Vaccine Completed 03/18/2019, 01/12/2019 Pneumococcal vaccine 65+ Completed 07/01/2019, 04/2018 Medical Devices Implanted Type Area Metal Melter Device Identifier Shelf Expiration Date Model / Serial / Lot [employer] Occluder Cvasc Landy Flexible Braided Amplatzer Amulet 18mm Nitinol [id number] - [id number] Implanted:Qty: 1 on 09/02/2024 by Zaina Murillo MD at [facility] Septal Defect Closure Device [employer] 07/29/2028 [id number] / / [id number] Procedures Procedure Name Priority Date/Time Associated Diagnosis Comments CBC WITH AUTO DIFFERENTIAL Routine 09/07/2024 2:02 PM CDT Anemia, unspecified type ECG 12-LEAD Routine 09/03/2024 10:43 AM CDT CBC WITHOUT DIFFERENTIAL STAT 09/03/2024 9:47 AM CDT TRANSTHORACIC ECHO (TTE) LIMITED/FOLLOW UP W LTD DOPPLER/CF WO CONTRAST Routine 09/03/2024 7:21 AM CDT EGFR Routine 09/03/2024 5:04 AM CDT DIFFERENTIAL AUTO Routine 09/03/2024 5:04 AM CDT CBC WITH AUTO DIFFERENTIAL Routine 09/03/2024 5:04 AM CDT MAGNESIUM Routine 09/03/2024 5:04 AM CDT BASIC METABOLIC PANEL Routine 09/03/2024 5:04 AM CDT POCT GLUCOSE DEVICE Routine 09/02/2024 5:20 PM CDT POCT GLUCOSE DEVICE Routine 09/02/2024 1:18 PM CDT APTT Routine 09/02/2024 11:22 AM CDT PROTIME-INR Routine 09/02/2024 11:22 AM CDT TRANSESOPHAGEAL ECHO (YUVAL) W DOPPLER/CF WO CONTRAST Routine 09/02/2024 10:50 AM CDT PERC LANDY CLOSURE W/IMPLANT (WATCHMAN) [id number] Routine 09/02/2024 10:34 AM CDT Atrial fibrillation (HCC) H/O: GI bleed Procedure Note - Frank Narayan MD - 09/02/2024 10:34 AM CDTThis note is in progress. HISTORY 74 y.o. old female with a history including atrial fibrillation, with highrisk of bleeding on group home OAC presents for consideration of leftatrial appendage closure. Informed consent was obtained after detailed discussion with the patientabout the procedures, risks, benefits, and alternatives. The patientconsented to open-heart surgery should device placement fail. The patientwas brought to the hybrid OR in a fasting state. A time-out wasperformed. The patient was prepped and draped in the usual sterilefashion. General anesthesia was administered. The patient receivedendotracheal intubation. OPERATORS: Frank Narayan MD, Zaina Murillo MD VASCULAR ACCESS The right femoral vein was accessed using the modified Seldingertechnique. An 8-Chadian sheath was inserted. TRANSSEPTAL PUNCTURE The patient was kept therapeutically anticoagulated throughout the case. Transseptal puncture was made to gain access to the left atrium using [employer] [place] needle system. Transseptal catheterization was performed and guidedby YUVAL see imaging note. The transseptal puncture was performed mid andinferior position. The wire was advanced through the left atrium and adouble curved delivery sheath was placed over the wire. An Amplatzer delivery catheter TorqVue was advanced into the left atrialappendage. A 5-Chadian pigtail was used to gain access into the leftatrial appendage. Appendage angiograms were performed. Appendage wasdetermined to be appropriate size for 18 mm left atrial appendage occluderdevice as suggested by angiograms and echocardiographic data. LA pressurewas 15 mm Hg The Amplatzer Amulet 18 mm occluder was inserted and advanced into theleft atrial appendage. The device was deployed in position within theleft atrial appendage. CLOSE criteria was used to confirm successfuldevice deployment. The device position and compression ratio was verifiedby transesophageal echo. The compression ratio was acceptable. Tug testdemonstrated adequate resistance in spring back to the original position.No LANDY leaks were present after deployment. The device was released andstable.The disk was below the ridge Protamine administered. Catheter removed and aemostasis achieved using apurse string suture after removal of all catheters, wires, and sheaths. FINAL INTERPRETATION Successful percutaneous closure of the left atrial appendage with a 18 mmAmplatzer Amulet occluder device without in lab complications. POCT GLUCOSE DEVICE Routine 09/02/2024 10:26 AM CDT POCT ACTIVATED CLOTTING TIME, HIGH RANGE Routine 09/02/2024 10:21 AM CDT MO AN ELECTIVE ENDOTRACHEAL AIRWAY Routine 09/02/2024 10:00 AM CDT B CHECK SAMPLE STAT 09/02/2024 8:10 AM CDT POTASSIUM, WHOLE BLOOD STAT 09/02/2024 8:06 AM CDT POCT GLUCOSE DEVICE Routine 09/02/2024 7:31 AM CDT PREPARE RBC STAT 09/02/2024 7:23 AM CDT ECG 12-LEAD Routine 08/26/2024 1:24 PM CDT Encounter for preadmission testing EGFR Routine 08/26/2024 1:07 PM CDT Encounter for preadmission testing DIFFERENTIAL AUTO Routine 08/26/2024 1:07 PM CDT Encounter for preadmission testing TYPE AND SCREEN Routine 08/26/2024 1:07 PM CDT Encounter for preadmission testing PROTIME-INR Routine 08/26/2024 1:07 PM CDT Encounter for preadmission testing Other specified hemorrhagic conditions COMPREHENSIVE METABOLIC PANEL Routine 08/26/2024 1:07 PM CDT Encounter for preadmission testing CBC WITH AUTO DIFFERENTIAL Routine 08/26/2024 1:07 PM CDT Encounter for preadmission testing APTT Routine 08/26/2024 1:07 PM CDT Encounter for preadmission testing Other specified hemorrhagic conditions TRANSESOPHAGEAL ECHO (YUVAL) W DOPPLER/CF WO CONTRAST Routine 08/19/2024 9:06 AM CDT Atrial fibrillation, unspecified type (HCC) TRANSESOPHAGEAL ECHOCARDIOGRAM 08/19/2024 8:05 AM CDT Atrial fibrillation, unspecified type (HCC) POCT GLUCOSE DEVICE Routine 08/19/2024 7:47 AM CDT IRON PROFILE W/ IBC Routine 08/14/2024 11:26 AM CDT Abnormal finding of blood chemistry, unspecified CBC WITH AUTO DIFFERENTIAL Routine 08/14/2024 11:26 AM CDT Abnormal finding of blood chemistry, unspecified DIABETIC EYE EXAM Routine 08/13/2024 4:23 PM CDT SCREENING MAMMOGRAM BILATERAL W ROLDAN Schedule Routine, Read Routine (OP Routine) 06/09/2024 11:52 AM CDT Breast cancer screening by mammogram HEMOGLOBIN A1C Routine 06/02/2024 10:33 AM SALES ADMINISTRATION SPECIALIST Hypertension associated with diabetes (HCC) Type 2 diabetes mellitus with hyperlipidemia (HCC) LIPID PANEL Routine 06/02/2024 10:33 AM SALES ADMINISTRATION SPECIALIST Type 2 diabetes mellitus with hyperlipidemia (HCC) ALBUMIN CREATININE RATIO, URINE Routine 06/02/2024 10:33 AM SALES ADMINISTRATION SPECIALIST Hypertension associated with diabetes (HCC) from Last 3 Months or Most Recently Relevant to Health Maintenance Results * (ABNORMAL) CBC with auto differential (09/07/2024 2:02 PM CDT) Pathologist [facility] WBC 9.2 3.8 - 10.8 Thousand/u L [facility] RBC, POC 3.15(L) 3.80 - 5.10 Million/uL [facility] Hgb 9.7(L) 11.7 - 15.5 g/dL [facility] Hct 30.7(L) 35.0 - 45.0 % [facility] MCV 97.5 80.0 - 100.0 fL [facility] MCH 30.8 27.0 - 33.0 pg [facility] MCHC 31.6(L) 32.0 - 36.0 g/dL [facility] Comment: For adults, a slight decrease in the calculated MCHC value (in the range of 30 to 32 g/dL) is most likely not clinically significant; however, it should be interpreted with caution in correlation with other red cell parameters and the patient's clinical condition. Rdw 13.9 11.0 - 15.0 % [facility] Platelets 299 140 - 400 Thousand/u L [facility] MPV 10.8 7.5 - 12.5 fL [facility] Neutrophils, abs 7,268 1,500 - 7,800 cells/uL [facility] Lymphocytes, abs 957 850 - 3,900 cells/uL [facility] Monocyte abs 506 200 - 950 cells/uL [facility] Eosinophils, abs 432 15 - 500 cells/uL [facility] Basophils, abs 37 0 - 200 cells/uL [facility] Neutrophils 79 % [facility] Lymphocyte pct 10.4 % [facility] Monocytes 5.5 % [facility] Eosinophils 4.7 % [facility] Basophils 0.4 % [facility] Blood 09/07/2024 2:02 PM CDT 09/07/2024 2:02 PM CDT Narrative [facility] - 09/08/2024 3:07 AM CDT FASTING:NO FASTING: NO Zaina Murillo MD LAB BLOOD ORDERABLES Final Result Performing Organization Address City/[facility]/ZIP Co de Phone Number MARIBELL [employer] [facility] [address] [place] [address] * ECG 12 lead (09/03/2024 10:43 AM CDT) 09/03/2024 10:4 3 AM CDT Narrative [facility] - 09/03/2024 12:01 PM CDT Vent Rate: 82 bpm RR Interval: 726 msec MO Interval: 188 msec QRS Duration: 85 msec QT Interval: 340 msec QTC Interval: 379 msec P-R-T [place]: 36 - 41 - 52 degrees IMPRESSION: SINUS RHYTHM NORMAL ECG Electronically Signed By: Juan Manuel Bliss MD, [facility] Zaina Murillo MD ECG ORDERABLES Domitila l Result Performing Organization Address [facility] Co de Phone Number [facility] [place] [facility] * (ABNORMAL) CBC without differential (09/03/2024 9:47 AM CDT) WBC 9.36 3.80 - 9.90 K/cumm Hgb 7.9(L) 11.9 - 15.5 g/dL [facility] Hct 25.8(L) 35.6 - 45.5 % [facility] Plt 212 150 - 400 K/cumm [facility] MPV 10.1 9.1 - 12.3 fL [facility] RBC 2.66(L) 3.90 - 5.20 M/cumm [facility] MCV 97.0(H) 81.3 - 96.4 fL [facility] Comment:No apparent cause fo r delta. MCH 29.7 27.1 - 33.3 pg [facility] MCHC 30.6(L) 32.3 - 35.7 g/dL [facility] RDW CV 14.6 11.1 - 14.9 % JOSE [facility] CH RDW SD 51.8(H) 35.7 - 48.1 fL [facility] NRBC abs 0.00 0.00 - 0.01 K/cumm JOSE R Blood 09/03/2024 9:47 AM CDT 09/03/2024 10:02 AM CDT us Alyssa Briseno [facility] LAB BLOOD ORDERABLES Final Resul t JOSE R [address] [place] [address] * TRANSTHORACIC ECHO (TTE) LIMITED/FOLLOW UP W LTD DOPPLER/CF WO CONTRAST (09/03/2024 7:21 AM CDT) EF Mod BP 60 % CONS SCIMAGE Anatomical Region Laterality Modality Ultrasound 09/03/2024 6:58 AM CDT Narrative 09/03/2024 8:39 AM CDT [place] [id number] Limited Echocardiogram Report Patient Name: KANDACE MCCLENDON R : 1950 Study Date: 09/03/2024 6:58:02 AM Gender: F Tech: Location: [id number] Ref Provider: ZAINA MURILLO Height(Cm): 149 BSA: 1.55 Weight(Kg): 58 Heart Rate: 91 BP: 124 / 51 Quality: Good Order Provider: ZAINA MURILLO PROCEDURES: Echocardiographic Report: Limited transthoracic echocardiogram with 2D and color Doppler. INDICATIONS: S/P LAAO w/ 18mm Amulet. MEASUREMENTS: 2D/MM Value Range EF Mod BP 60 % [ 54 - 74 ] 2D/MM Value Range - FINDINGS: Atrial Septum: Normal atrial septum. Left Ventricle: Normal left ventricular systolic function with no focal wall motion abnormalities. Normal left ventricular size. Ejection fraction is measured at 60 %. Left Atrium: Left atrium is adequately Visualized. Left atrial appendage occluder device is present. Pericardium: Normal pericardium with no significant pericardial effusion. CONCLUSIONS: Normal left ventricular systolic function with no focal wall motion abnormalities. Normal left ventricular size. Ejection fraction is measured at 60 %. Left atrium is adequately Visualized. Left atrial appendage occluder device is present. Normal pericardium with no significant pericardial effusion. Electronically Signed By: Karrie Perez DO, FACC, FASE, FASNC 09/03/2024 8:39:14 AM CDT Procedure Note Karrie Perez DO - 09/03/2024 [place] [address] Limited Echocardiogram Report Patient Name: KANDACE MCCLENDON R : 1950 Study Date: 09/03/2024 6:58:02 AM Gender: F Tech: Location: [id number] [facility] Provider: ZAINA MURILLO Height(Cm): 149 BSA: 1.55 Weight(Kg): 58 Heart Rate: 91 BP: 124 / 51 Quality: Good Order Provider: ZAINA MURILLO PROCEDURES: Echocardiographic Report: Limited transthoracic echocardiogram with 2D and color Doppler. INDICATIONS: S/P LAAO w/ 18mm Amulet. MEASUREMENTS: 2D/MM Value Range EF Mod BP 60 % [ 54 - 74 ] 2D/MM Value Range - FINDINGS: Atrial Septum: Normal atrial septum. Left Ventricle: Normal left ventricular systolic function with no focal wall motionabnormalities. Normal left ventricular size. Ejection fraction is measured at 60 %. Left Atrium: Left atrium is adequately Visualized. Left atrial appendage occluderdevice is present. Pericardium: Normal pericardium with no significant pericardial effusion. CONCLUSIONS: Normal left ventricular systolic function with no focal wall motionabnormalities. Normal left ventricular size. Ejection fraction is measured at 60 %. Left atrium is adequately Visualized. Left atrial appendage occluderdevice is present. Normal pericardium with no significant pericardial effusion. Electronically Signed By: Karrie Perez DO, KAYLA, ELDER SAUCEDA 09/03/2024 8:39:14 AM CDT Zaina Murillo MD CV ECHO PROCEDURES F inal Result * (ABNORMAL) eGFR (09/03/2024 5:04 AM CDT) eGFR 34(L) >=60 mL/min/1. 73 m2 Comment: Interpretive Data Reference Interval Normal >/= 90 mL/min/1.73m2 Mildly decreased* 60 - 89 mL/min/1.73m2 Mildly to moderately decreased 45 - 59 mL/min/1.73m2 Moderately to severely decreased 30 - 44 mL/min/1.73m2 Severely decreased 15 - 29 mL/min/1.73m2 Kidney Failure < 15 mL/min/1.73m2 *Relative to young adult level Estimated glomerular filtration rate is determined by the 2020 CKD-EPI equation recommended by the National Kidney Foundation (A Unifying Approach to GFR Estimation: Recommendations of the NKF-ASK Task Force on Reassessing the Inclusion of Race in Diagnosing Kidney Disease, JASN 2020). The CKD-EPI equation should not be used for patients with unstable renal function and has not been validated in children and those over 70. Current interpretive data was last reviewed 2021. Blood 09/03/2024 5:04 AM CDT 09/03/2024 5:29 AM CDT us Zaina Murillo MD LAB BLOOD ORDERABLES Final Result [facility] [address] [place] [address] * (ABNORMAL) Differential, auto (09/03/2024 5:04 AM CDT) Neutrophil abs 7.31(H) 1.50 - 6.50 K/cumm Imm gran abs 0.04 0.00 - 0.10 K/cumm [facility] Lymphocyte abs 0.84 0.80 - 3.30 K/cumm [facility] Monocyte abs 0.53 0.20 - 0.80 K/cumm [facility] Eosinophil abs 0.01 0.00 - 0.50 K/cumm [facility] Basophil abs 0.01 0.00 - 0.10 K/cumm [facility] Neutrophil pct 83.6 % [facility] Comment: Interpretive Data Percent cell count reference ranges are not reported, since discordance with absolute values may lead to misinterpretation of CBC data. Current Interpretive Data was last revised on 2017. Imm gran pct 0.5 % [facility] Comment: Interpretive Data Percent cell count reference ranges are not reported, since discordance with absolute values may lead to misinterpretation of CBC data. Current Interpretive Data was last revised on 2017. Lymphocyte pct 9.6 % [facility] Comment: Interpretive Data Percent cell count reference ranges are not reported, since discordance with absolute values may lead to misinterpretation of CBC data. Current Interpretive Data was last revised on 2017. Monocyte pct 6.1 % [facility] Comment: Interpretive Data Percent cell count reference ranges are not reported, since discordance with absolute values may lead to misinterpretation of CBC data. Current Interpretive Data was last revised on 2017. Eosinophil pct 0.1 % [facility] Comment: Interpretive Data Percent cell count reference ranges are not reported, since discordance with absolute values may lead to misinterpretation of CBC data. Current Interpretive Data was last revised on 2017. Basophil pct 0.1 % [facility] Comment: Interpretive Data Percent cell count reference ranges are not reported, since discordance with absolute values may lead to misinterpretation of CBC data. Current Interpretive Data was last revised on 2017. Blood 09/03/2024 5:04 AM CDT 09/03/2024 5:30 AM CDT Zaina Murillo MD LAB BLOOD ORDERABLES Final Result JOSE R RAMIREZ [id number] [place] [address] * (ABNORMAL) CBC with auto differential (09/03/2024 5:04 AM CDT) WBC 8.74 3.80 - 9.90 K/cumm Hgb 8.4(L) 11.9 - 15.5 g/dL [facility] Hct 25.9(L) 35.6 - 45.5 % [facility] Plt 237 150 - 400 K/cumm [facility] MPV 10.3 9.1 - 12.3 fL [facility] RBC 2.82(L) 3.90 - 5.20 M/cumm [facility] MCV 91.8 81.3 - 96.4 fL [facility] MCH 29.8 27.1 - 33.3 pg [facility] MCHC 32.4 32.3 - 35.7 g/dL [facility] RDW CV 14.6 11.1 - 14.9 % [facility] RDW SD 49.1(H) 35.7 - 48.1 fL [facility] NRBC abs 0.00 0.00 - 0.01 K/cumm [facility] Blood 09/03/2024 5:04 AM CDT 09/03/2024 5:30 AM CDT Zaina Murillo MD LAB BLOOD ORDERABLES Final Result Performing Organization Address City/[facility]/ZIP Co de Phone Number JOSE R RAMIREZ [id number] [facility] [place] [address] * Magnesium (09/03/2024 5:04 AM CDT) Magnesium 1.9 1.4 - 2.5 mg/dL Blood 09/03/2024 5:04 AM CDT 09/03/2024 5:29 AM CDT us Zaina Murillo MD LAB BLOOD ORDERABLES Final Result Performing Organization Address City/State/[place] [address] [address] Department [place] [address] * (ABNORMAL) Basic metabolic panel (09/03/2024 5:04 AM CDT) Sodium 136 135 - 145 mmol/L Potassium, pl 4.2 3.3 - 4.9 mmol/L [facility] Chloride 104 97 - 110 mmol/L [facility] CO2 22 22 - 32 mmol/L [facility] Anion gap 10 2 - 15 mmol/L [facility] BUN 32(H) 6 - 25 mg/dL [facility] Creatinine 1.59(H) 0.60 - 1.10 mg/dL [facility] Glucose 128 70 - 199 mg/dL [facility] Comment: Interpretive Data Fasting glucose >/= 126 mg/dl is diagnostic for diabetes. Fasting is defined as no caloric intake for at least 8 hours. Fasting glucose between 100 mg/dl to 125 mg/dl is diagnostic of prediabetes. In a patient with classic symptoms of hyperglycemia or hyperglycemic crisis, a random glucose >/= 200 mg/dl is diagnostic for diabetes. In the absence of unequivocal hyperglycemia, results should be confirmed by repeat testing. The classification and Diagnosis of Diabetes Diabetes Care 2021; 46: S19-S40. Current interpretive data was last revised 2022. Calcium 8.7 8.5 - 10.3 mg/dL [facility] Blood 09/03/2024 5:04 AM CDT 09/03/2024 5:29 AM CDT us Zaina Murillo MD LAB BLOOD ORDERABLES Final Result JOSE R RAMIREZ [address] [facility] [place] [address] * POCT glucose (09/02/2024 5:20 PM CDT) Glucose, POC 174 70 - 199 mg/dL POC Performer [id number] [facility] Blood 09/02/2024 5:20 PM CDT 09/02/2024 5:20 PM CDT us Zaina Murillo MD LAB POCT ORDERABLES - DEVICE Final Result Performing Organization Address [facility] Co de Phone Number JOSE R RAMIREZ [address] [facility] [place] [address] * POCT glucose (09/02/2024 1:18 PM CDT) Glucose, POC 170 70 - 199 mg/dL POC Performer [id number] [facility] Blood 09/02/2024 1:18 PM CDT 09/02/2024 1:18 PM CDT us Zaina Murillo MD LAB POCT ORDERABLES - DEVICE Final Result Performing Organization Address [facility] de Phone Number JOSE R RAMIREZ [address] [facility] [place] [address] * aPTT (09/02/2024 11:22 AM CDT) aPTT 33 28 - 38 sec Comment: Interpretive Data Heparin therapeutic range: 66.0 - 100.0 seconds. Range based on correlation with therapeutic heparin activity range of 0.3 - 0.7 Units/mL. Current interpretive data was last revised on 2022. Blood 09/02/2024 11:2 2 AM CDT 09/02/2024 11:30 AM CDT us Zaina Murillo MD LAB BLOOD ORDERABLES Final Result Performing Organization Address [facility] de Phone Number JOSE R RAMIREZ [phone] [facility] [place] [address] * Protime-INR (09/02/2024 11:22 AM CDT) PT 12.8 9.7 - 13.0 sec INR 1.18 0.90 - 1.20 JOSE R RAMIREZ Comment: Interpretive data Oral anticoagulant therapeutic ranges: Venous thromboembolism prophylaxis or treatment: 2.0-3.0 CARDIOLOGY Standard range: 2.0-3.0 High-intensity range: 2.5-3.5 Refer to indication-specific guidelines for appropriate target ranges for prosthetic heart valve replacement. Current interpretive data was last revised on 2019. Blood 09/02/2024 11:2 2 AM CDT 09/02/2024 11:30 AM CDT Zaina Murillo MD LAB BLOOD ORDERABLES Final Result Performing Organization Address [facility] de Phone Number JOSE R RAMIREZ [phone] [place] [address] * TRANSESOPHAGEAL ECHO (YUVAL) W DOPPLER/CF WO CONTRAST (09/02/2024 10:50 AM CDT) BSA 1.55 m2 CONS SCIMAGE Anatomical Region Laterality Modality Ultrasound Narrative 09/02/2024 10:54 AM CDT Table formatting from the original result was not included. PROCEDURE Transesophageal ECHO for left atrial appendage closure INDICATION Atrial fibrillation and [id number] score > 2 with hx of recurrent bleeding and couldn't tolerate group home anticoagulation PROCEDURE DETAILS Patient underwent general anesthesia by the anesthesia staff. YUVAL probe was inserted. There was no evidence of clot in LANDY. Baseline YUVAL measurements were taken and was fit for device size 18. Measurement YUVAL 0 YUVAL 45 YUVAL 90 YUVAL 135 LANDY orifice 19 19 16 Landing zone 14 10 10 10 Depth Trans-septal puncture was performed with echo guidance with easy entry into the left atrium mid and inf position. The sheath was advanced under ECHO guidance. Amulet device was loaded and then deployed under echo guidance. Final images showed good device position and no evidence of color leak around it. Device remained stable after released. Pulmonary vein flow & MR function was not impeded. There is no pericardial effusion. Impression: Transesophageal ECHO for successful left atrial appendage occlusion using 18 mm amulet device without in lab complications Frank Narayan MD Zaina Murillo MD CV ECHO PROCEDURES F inal Result * POCT glucose (09/02/2024 10:26 AM CDT) [facility] Glucose, POC 114 70 - 199 mg/dL POC Performer [id number] [facility] Blood 09/02/2024 10:2 6 AM CDT 09/02/2024 10:26 AM CDT Zaina Murillo MD LAB POCT ORDERABLES - DEVICE Final Result Performing Organization Address [facility] Co de Phone Number JOSE R RAMIREZ [phone] [place] [address] * (ABNORMAL) POC Activated Clotting Time, High Range (09/02/2024 10:21 AM CDT) [facility] ACT 315(H) 87 - 138 sec POC Performer [id number] [facility] Blood 09/02/2024 10:2 1 AM CDT 09/02/2024 10:21 AM CDT Zaina Murillo MD LAB BLOOD ORDERABLES Final Result Performing Organization Address City/[facility] Co de Phone Number JOSE R [address] [place] [address] * MO AN ELECTIVE ENDOTRACHEAL AIRWAY (09/02/2024 10:00 AM CDT) Narrative Chicho Mcgrath AA - 09/02/2024 10:00 AM CDT Chicho Mcgrath AA 09/02/2024 10:00 AM Airway Patient location: OR Urgency: elective Indications for airway management: anesthesia and airway protection Difficult airway: no Staff: Supervising provider: Drew Cervantes MD Placed by: AA: Chicho Mcgrath AA Emergent airway documentation: Risks and benefits discussed: yes Consent obtained: yes Consent given by: patient Airway prep: Preoxygenated: yes Patient position: sniffing MILS maintained throughout: yes Mask difficulty assessment: 1 - vent by mask Spontaneous ventilation during airway: absent Sedation level during airway: GA Final airway details: Final airway type: endotracheal airway Tube type: ETT ETT size: 7.0 mm Cuffed: yes Technique used for successful ETT placement: direct laryngoscopy Insertion site: oral Blade type: Roberto Blade size: 3 Cormack-Lehane (direct): grade I - full view of glottis Cuff volume: 7 mL Cuff inflated with: air ETT to lips: 21 cm Placement verified by: auscultation and CO2 detection Airway secured with: silk tape Number of attempts: 1 Additional comments: Atraumatic insertion. Dentition as pre-op. Continue to assess Drew Cervantes MD ANESTHESIA ORDERABLES Final Re sult * Check Sample (09/02/2024 8:10 AM CDT) ABO Rh A Positive [facility] OTHER 09/02/2024 8:10 AM CDT 09/02/2024 8:10 AM CDT Zaina Murillo MD LAB BLOOD ORDERABLES Final Result Performing Organization Address City/State/ZIP Co wa Phone Number [facility] [address] [place] [address] CH * Potassium, whole blood (09/02/2024 8:06 AM CDT) Potassium, bld 3.4 3.3 - 4.9 mmol/L Comment: Interpretive Data This method is not able to assess for hemolysis, which may falsely increase potassium concentrations. If further testing is needed to evaluate this result, consider in-laboratory plasma potassium. Current Interpretive Data was last revised on 2021. Blood 09/02/2024 8:06 AM CDT 09/02/2024 8:08 AM CDT Rola Paetl NP LAB BLOOD ORDERABLES Final Res ult Performing Organization Address [facility] Co de Phone Number DENISECAROLINE RAMIREZ [phone] [facility] [place] [address] * POCT glucose (09/02/2024 7:31 AM CDT) Glucose, POC 134 70 - 199 mg/dL POC Performer [id number] [facility] Blood 09/02/2024 7:31 AM CDT 09/02/2024 7:31 AM CDT Zaina Murillo MD LAB POCT ORDERABLES - DEVICE Final Result Performing Organization Address [facility] de Phone Number JOSE R RAMIREZ [phone] [facility] [place] [address] * Prepare RBC: 2 Units (09/02/2024 7:23 AM CDT) Product code [id number] Unit Number [id number] 2-V [facility] Product Blood Type APOS [facility] Dispense Status RETURNED [facility] Product code [id number] [facility] Unit Number [id number] 1-D [facility] Product Blood Type APOS [facility] Dispense Status RETURNED [facility] Blood 09/02/2024 7:23 AM CDT Narrative [facility] - 09/03/2024 12:08 AM CDT Specify Procedure:->LAAO Are special requirements needed? (All products are leukoreduced and CMV- safe)- >No Date required:-[id number] LRRBC # of [id number] Reasons:-Hold for procedure (specify procedure)} Zaina Murillo MD BLOOD BANK PRODUCT O RDERABLES Final Result Performing Organization Address [facility] Co de Phone Number JOSE R RAMIREZ [address] [facility] [place] [address] * ECG 12 lead (08/26/2024 1:24 PM CDT) 08/26/2024 1:24 PM CDT Narrative [facility] - 08/26/2024 8:14 PM CDT Vent Rate: 68 bpm RR Interval: 882 msec MO Interval: 187 msec QRS Duration: 76 msec QT Interval: 369 msec QTC Interval: 385 msec P-R-T [place]: 62 - 31 - 57 degrees IMPRESSION: SINUS RHYTHM NORMAL ECG Electronically Signed By: Dr. Zaina Murillo [facility] Zaina Murillo MD ECG ORDERABLES Domitila l Result Performing Organization Address City/[facility]/ZIP Co de Phone Number [facility] [employer] [facility] * (ABNORMAL) eGFR (08/26/2024 1:07 PM CDT) eGFR 39(L) >=60 mL/min/1. 73 m2 Comment: Interpretive Data Reference Interval Normal >/= 90 mL/min/1.73m2 Mildly decreased* 60 - 89 mL/min/1.73m2 Mildly to moderately decreased 45 - 59 mL/min/1.73m2 Moderately to severely decreased 30 - 44 mL/min/1.73m2 Severely decreased 15 - 29 mL/min/1.73m2 Kidney Failure < 15 mL/min/1.73m2 *Relative to young adult level Estimated glomerular filtration rate is determined by the 2020 CKD-EPI equation recommended by the National Kidney Foundation (A Unifying Approach to GFR Estimation: Recommendations of the NKF-ASK Task Force on Reassessing the Inclusion of Race in Diagnosing Kidney Disease, JASN 2020). The CKD-EPI equation should not be used for patients with unstable renal function and has not been validated in children and those over 70. Current interpretive data was last reviewed 2021. Blood 08/26/2024 1:07 PM CDT 08/26/2024 1:24 PM CDT Zaina Murillo MD LAB BLOOD ORDERABLES Final Result JOSE R [address] [facility] [place] [address] * (ABNORMAL) Differential, auto (08/26/2024 1:07 PM CDT) Neutrophil abs 7.58(H) 1.50 - 6.50 K/cumm Imm gran abs 0.03 0.00 - 0.10 K/cumm [facility] Lymphocyte abs 1.12 0.80 - 3.30 K/cumm [facility] Monocyte abs 0.54 0.20 - 0.80 K/cumm [facility] Eosinophil abs 0.43 0.00 - 0.50 K/cumm [facility] Basophil abs 0.04 0.00 - 0.10 K/cumm [facility] Neutrophil pct 77.9 % [facility] Comment: Interpretive Data Percent cell count reference ranges are not reported, since discordance with absolute values may lead to misinterpretation of CBC data. Current Interpretive Data was last revised on 2017. Imm gran pct 0.3 % [facility] Comment: Interpretive Data Percent cell count reference ranges are not reported, since discordance with absolute values may lead to misinterpretation of CBC data. Current Interpretive Data was last revised on 2017. Lymphocyte pct 11.5 % [facility] Comment: Interpretive Data Percent cell count reference ranges are not reported, since discordance with absolute values may lead to misinterpretation of CBC data. Current Interpretive Data was last revised on 2017. Monocyte pct 5.5 % [facility] Comment: Interpretive Data Percent cell count reference ranges are not reported, since discordance with absolute values may lead to misinterpretation of CBC data. Current Interpretive Data was last revised on 2017. Eosinophil pct 4.4 % [facility] Comment: Interpretive Data Percent cell count reference ranges are not reported, since discordance with absolute values may lead to misinterpretation of CBC data. Current Interpretive Data was last revised on 2017. Basophil pct 0.4 % [facility] Comment: Interpretive Data Percent cell count reference ranges are not reported, since discordance with absolute values may lead to misinterpretation of CBC data. Current Interpretive Data was last revised on 2017. Blood 08/26/2024 1:07 PM CDT 08/26/2024 1:24 PM CDT Zaina Murillo MD LAB BLOOD ORDERABLES Final Result Performing Organization Address City/[facility]/ZIP Co de Phone Number JOSE R [phone] [place] [address] * (ABNORMAL) CBC with auto differential (08/26/2024 1:07 PM CDT) WBC 9.74 3.80 - 9.90 K/cumm Hgb 11.1(L) 11.9 - 15.5 g/dL [facility] Hct 35.2(L) 35.6 - 45.5 % [facility] Plt 296 150 - 400 K/cumm [facility] MPV 10.0 9.1 - 12.3 fL [facility] RBC 3.78(L) 3.90 - 5.20 M/cumm [facility] MCV 93.1 81.3 - 96.4 fL [facility] MCH 29.4 27.1 - 33.3 pg [facility] MCHC 31.5(L) 32.3 - 35.7 g/dL [facility] RDW CV 15.6(H) 11.1 - 14.9 % [facility] RDW SD 52.9(H) 35.7 - 48.1 fL [facility] NRBC abs 0.00 0.00 - 0.01 K/cumm [facility] Blood 08/26/2024 1:07 PM CDT 08/26/2024 1:24 PM CDT Zaina Murillo MD LAB BLOOD ORDERABLES Final Result JOSE R [address] [place] [address] * (ABNORMAL) aPTT (08/26/2024 1:07 PM CDT) aPTT 27(L) 28 - 38 sec Comment: Interpretive Data Heparin therapeutic range: 66.0 - 100.0 seconds. Range based on correlation with therapeutic heparin activity range of 0.3 - 0.7 Units/mL. Current interpretive data was last revised on 2022. Blood 08/26/2024 1:07 PM CDT 08/26/2024 1:24 PM CDT us Zaina Murillo MD LAB BLOOD ORDERABLES Final Result Performing Organization Address [facility] de Phone Number JOSE R [address] [facility] [place] [address] * Protime-INR (08/26/2024 1:07 PM CDT) PT 11.0 9.7 - 13.0 sec INR 1.02 0.90 - 1.20 JOSE R RAMIREZ Comment: Interpretive data Oral anticoagulant therapeutic ranges: Venous thromboembolism prophylaxis or treatment: 2.0-3.0 CARDIOLOGY Standard range: 2.0-3.0 High-intensity range: 2.5-3.5 Refer to indication-specific guidelines for appropriate target ranges for prosthetic heart valve replacement. Current interpretive data was last revised on 2019. Blood 08/26/2024 1:07 PM CDT 08/26/2024 1:24 PM CDT us Zaina Murillo MD LAB BLOOD ORDERABLES Final Result Performing Organization Address [facility] de Phone Number JOSE R RAMIREZ [phone] [facility] [place] [address] * Type and screen (08/26/2024 1:07 PM CDT) ABO Rh A Positive Power, indirect Negative JOSE R RAMIREZ Blood 08/26/2024 1:07 PM CDT 08/26/2024 1:33 PM CDT Narrative JOSE R RAMIREZ - 08/26/2024 2:14 PM CDT Has the patient had Daratumumab or Isatuximab in the past 6 months?->Unknown us Zaina Murillo MD LAB BLOOD BANK TEST ORDERABLES Final Result JOSE R [address] [place] [address] * (ABNORMAL) Comprehensive metabolic panel (08/26/2024 1:07 PM CDT) Sodium 137 135 - 145 mmol/L Potassium, pl 4.7 3.3 - 4.9 mmol/L [facility] Chloride 102 97 - 110 mmol/L [facility] CO2 25 22 - 32 mmol/L [facility] Anion gap 10 2 - 15 mmol/L [facility] BUN 31(H) 6 - 25 mg/dL [facility] Creatinine 1.40(H) 0.60 - 1.10 mg/dL [facility] Glucose 111 70 - 199 mg/dL [facility] Comment: Interpretive Data Fasting glucose >/= 126 mg/dl is diagnostic for diabetes. Fasting is defined as no caloric intake for at least 8 hours. Fasting glucose between 100 mg/dl to 125 mg/dl is diagnostic of prediabetes. In a patient with classic symptoms of hyperglycemia or hyperglycemic crisis, a random glucose >/= 200 mg/dl is diagnostic for diabetes. In the absence of unequivocal hyperglycemia, results should be confirmed by repeat testing. The classification and Diagnosis of Diabetes Diabetes Care 202; 46: S19-S40. Current interpretive data was last revised 2022. Calcium 9.8 8.5 - 10.3 mg/dL [facility] Bilirubin, total 0.3 0.1 - 1.2 mg/dL [facility] Protein, pl 7.3 6.5 - 8.5 g/dL [facility] Albumin 4.0 3.5 - 5.0 g/dL [facility] Alk phos 94 40 - 130 Units/L [facility] ALT 17 7 - 45 Units/L [facility] AST 18 10 - 45 Units/L [facility] Blood 08/26/2024 1:07 PM CDT 08/26/2024 1:24 PM CDT Zaina Murillo MD LAB BLOOD ORDERABLES Final Result Performing Organization Address [facility]/ZIP Co de Phone Number JOSE R RAMIREZ [id number] Department [place] [address] * TRANSESOPHAGEAL ECHO (YUVAL) W DOPPLER/CF WO CONTRAST (08/19/2024 9:06 AM CDT) BSA 1.55 m2 CONS SCIMAGE Anatomical Region Laterality Modality Other Narrative 08/20/2024 9:41 AM CDT Transesophageal Echocardiogram INDICATIONS: This is a 74 y.o. year old female who has no prior history of sedation or anesthesia problems. A YUVAL has been requested in preparation for left atrial appendage occlusion device. PROCEDURE: After informed consent was obtained, IV sedation was given per anesthesia. The multiplane YUVAL probe was inserted into the patients mouth and passed into the esophagus without difficulty. Standard images were then obtained using 2dmmode, colorflow and doppler. ANESTHESIA: sedation was performed via anesthesia department. COMPLICATIONS: There were no immediate complications. FINDINGS: - Left Ventricle: Normal size and systolic function. Ejection fraction 60%. - Right Ventricle: Normal size and systolic function. - Left Atrium: Mildly enlarged. - Appendage: Measurements of the appendage was done. No clots. - Right Atrium: Normal size. - Interatrial Septum: Bubble study done and only a couple bubbles crossed suggesting very tiny PFO. - Mitral valve: Normal structure and function. Trivial mitral regurgitation. - Aortic valve: Trileaflet. Normal structure. No regurgitation or stenosis. - Tricuspid valve: Normal structure and function without regurgitation. - Pulmonic valve: Normal structure and function without regurgitation. - Pericardium: No evidence of pericardial fluid. Prominent transverse sinus. - Pleura: No pleural effusion. - Descending Aorta: Normal caliber without significant atheroma. - Ascending Aorta: Normal caliber without significant atheroma. Conclusions: Normal systolic function. -Mildly enlarged left atrium -Very tiny PFO -No evidence of left atrial appendage clots. us Zaina Murillo MD CV ECHO PROCEDURES F inal Result * POCT glucose (08/19/2024 7:47 AM CDT) Pathologist [facility] Glucose, POC 149 70 - 199 mg/dL POC Performer [id number] JOSE R RAMIREZ Blood 08/19/2024 7:47 AM CDT 08/19/2024 7:47 AM CDT Zaina Murillo MD LAB POCT ORDERABLES - DEVICE Final Result JOES R RAMIREZ [address] Department [place] [address] * Iron profile w/ IBC (08/14/2024 11:26 AM CDT) Pathologist [facility] Iron 53 45 - 160 mcg/dL [facility] TIBC 270 250 - 450 mcg/dL (calc) [facility] Iron saturation 20 16 - 45 % (calc) [facility] Blood 08/14/2024 11:2 6 AM CDT 08/14/2024 11:31 AM CDT Cheri Calderon NP LAB BLOOD ORDERABLES Final Re sult Performing Organization Address City/[facility]/ZIP Co de Phone Number QUEST [facility] [address] [place] [address] * (ABNORMAL) CBC with auto differential (08/14/2024 11:26 AM CDT) Pathologist [facility] WBC 12.6(H) 3.8 - 10.8 Thousand/ uL [facility] RBC, POC 3.79(L) 3.80 - 5.10 Million/u L [facility] Hgb 11.0(L) 11.7 - 15.5 g/dL [facility] Hct 35.3 35.0 - 45.0 % [facility] MCV 93.1 80.0 - 100.0 fL [facility] MCH 29.0 27.0 - 33.0 pg [facility] MCHC 31.2(L) 32.0 - 36.0 g/dL [facility] Comment: For adults, a slight decrease in the calculated MCHC value (in the range of 30 to 32 g/dL) is most likely not clinically significant; however, it should be interpreted with caution in correlation with other red cell parameters and the patient's clinical condition. Rdw 15.1(H) 11.0 - 15.0 % [facility] Platelets 311 140 - 400 Thousand/ uL [facility] MPV 10.2 7.5 - 12.5 fL [facility] Neutrophils, abs 10,307(H) 1,500 - 7,800 cells/uL [facility] Lymphocytes, abs 1,121 850 - 3,900 cells/uL [facility] Monocyte abs 668 200 - 950 cells/uL [facility] Eosinophils, abs 466 15 - 500 cells/uL [facility] Basophils, abs 38 0 - 200 cells/uL [facility] Neutrophils 81.8 % [facility] Lymphocyte pct 8.9 % [facility] Monocytes 5.3 % [facility] Eosinophils 3.7 % [facility] Basophils 0.3 % [facility] Blood 08/14/2024 11:2 6 AM CDT 08/14/2024 11:31 AM CDT Cheri Calderon NP LAB BLOOD ORDERABLES Final Re sult [facility] [address] [place] [address] * Diabetic Eye Exam (08/13/2024 4:23 PM CDT) Historical Provider HEALTH MAINTENANCE Final Result * Screening Mammogram Bilateral W [place] (06/09/2024 11:52 AM CDT) Anatomical Region Laterality Modality Breast Bilateral Mammography Cheri Calderon NP IMG MAMMO PROCEDURES Final Re sult * (ABNORMAL) Albumin Creatinine Ratio, Urine (06/02/2024 10:33 AM SALES ADMINISTRATION SPECIALIST) Creatinine, ur 160 20 - 275 [...] diagnostic category. Urine 06/02/2024 10:3 3 AM SALES ADMINISTRATION SPECIALIST 06/02/2024 10:33 AM SALES ADMINISTRATION SPECIALIST Narrative [facility] - 06/03/2024 6:08 AM SALES ADMINISTRATION SPECIALIST FASTING:YES FASTING: YES Cheri Calderon MOLDER [employer] LAB URINE ORDERABLES Final Re sult Performing Organization Address [facility] de Phone Number QUEST [facility] [address] [place] [address] * Hemoglobin A1c (06/02/2024 10:33 AM SALES ADMINISTRATION SPECIALIST) Hgb A1C 5.5 <5.7 % of total Hgb [facility] Comment: For the purpose of screening for the presence of diabetes: <5.7% Consistent with the absence of diabetes 5.7-6.4% Consistent with increased risk for diabetes (prediabetes) > or =6.5% Consistent with diabetes This assay result is consistent with a decreased risk of diabetes. Currently, no consensus exists regarding use of hemoglobin A1c for diagnosis of diabetes in children. According to [place] Diabetes Association (ADA) guidelines, hemoglobin A1c <7.0% represents optimal control in non- diabetic patients. Different metrics may apply to specific patient populations. Standards of Medical Care in Diabetes(ADA). Blood 06/02/2024 10:3 3 AM SALES ADMINISTRATION SPECIALIST 06/02/2024 10:33 AM SALES ADMINISTRATION SPECIALIST Narrative [facility] - 06/03/2024 6:08 AM SALES ADMINISTRATION SPECIALIST FASTING:YES FASTING: YES Cheri Calderon NP LAB BLOOD ORDERABLES Final Re sult Performing Organization Address City/[facility] Co de Phone Number MARIBELL [facility] [address] [place] [address] * (ABNORMAL) Lipid panel (06/02/2024 10:33 AM SALES ADMINISTRATION SPECIALIST) Cholesterol 129 <200 mg/dL [facility] HDL 38(L) > OR = 50 mg/dL [facility] Triglycerides 159(H) <150 mg/dL [facility] LDL 67 mg/dL (calc) [facility] Comment: Reference range: <100 Desirable range <100 mg/dL for primary prevention; <70 mg/dL for patients with CHD or diabetic patients with > or = 2 CHD risk factors. LDL-C is now calculated using the Rubi calculation, which is a validated novel method providing better accuracy than the Friedewald equation in the estimation of LDL-C. Harpreet GARCIAS et al. EVELYNE. 2013;310(19): 5423-0480 (http://education.Medialive/faq/UWH900) Chol/HDL ratio 3.4 <5.0 (calc) [facility] Non-HDL, (LDL+VLDL) 91 <130 mg/dL (calc) [facility] Comment: For patients with diabetes plus 1 major ASCVD risk factor, treating to a non-HDL-C goal of <100 mg/dL (LDL-C of <70 mg/dL) is considered a therapeutic option. Blood 06/02/2024 10:3 3 AM SALES ADMINISTRATION SPECIALIST 06/02/2024 10:33 AM SALES ADMINISTRATION SPECIALIST Narrative [facility] - 06/03/2024 6:08 AM SALES ADMINISTRATION SPECIALIST FASTING:YES FASTING: YES us Cheri Calderon NP LAB BLOOD ORDERABLES Final Re sult MARIBELL 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
--- OUTSIDE RECORDS SUMMARY | 2024-10-15 02:38 | XMS_ITS | Data Portability ---
Author Organization [place] - [facility] [employer], Main Office Address [address] [place] [address] Care Team Providers Care Utilities Manager Name Role Phone FLEX TOMPKINS Primary Care Provider FLEX TOMPKINS Referring Provider Assessment No assessment recorded. Plan of Treatment Reminders Order Date Submit Date Provider Last Modified By Organization Details Last Modified Time Details Appointments None recorded. Lab uric acid, serum or plasma [email or web address] (Lab), [address] [place], [address], 4 16:31:52 glycohemogl obin, total, blood [address] (Lab), [address] [place], [address], 4 16:31:40 uric acid, serum or plasma 2023 024 [facility] (Lab), [address] [place], [address], 4 20:39:00 PTH (parathyroi d hormone), intact, serum or plasma 2023 024 [facility] (Lab), [address] [place], [address], 4 20:41:41 renal function panel, serum 2023 [email or web address] [place] [address] (Lab), [address] [place], [address], 4 08:06:44 vitamin D, 25-hydroxy, total, serum 2023 024 [facility] (Lab), [address] [place], [address], 4 07:34:09 protein, total, urine 2023 024 [facility] (Lab), [address] [place], [address], 4 20:34:54 ESR (erythrocyt e sedimentati on rate), blood 2023 024 [facility] (Lab), [address] [place], [address], 4 21:47:07 lipid panel, serum 2023 024 [facility] (Lab), [address] [place], [address], 4 20:38:58 hepatic function panel, serum 2023 [email or web address] [place] [address] (Lab), [address] [place], [address], 4 08:06:45 HbA1c (hemoglobin A1c), blood 2023 024 [facility] (Lab), [address] [place], [address], 4 07:33:45 TSH, serum or plasma 2023 024 [facility] (Lab), [address] [place], [address], 21:02:31 T4, free, serum 2023 024 [facility] (Lab), [address] [place], [address], 4 20:49:42 CBC w/ auto diff 2023 024 [facility] (Lab), [address] [place], [address], 4 21:50:25 ferritin, serum or plasma 2023 024 [facility] (Lab), [address] [place], [address], 4 21:09:42 iron + total iron-bindin g capacity (TIBC), serum 2023 024 [facility] (Lab), [address] [place], [address], 4 20:37:47 CBC w/ auto diff 2023 024 [facility] (Lab), [address] [place], [address], 4 20:28:05 Referral organ tuner electronic referral - Please call patient to schedule an appointment . Thank you. 2023 024 brandon Isaac Jr DPM, [address], [address], [place], [address], 4 13:38:30 Procedures upper endoscopy procedure (EGD) (PROC) - Repeat due 12/23 [email or web address] [place] [address] (Pre-Screen), [address] [place], [address], 09:56:17 Surgeries None recorded. Imaging DEXA 2023 024 [facility] (Imaging), [address], [place], [address], 4 18:42:39 XR, hip + pelvis, unilateral 2023 024 [facility] Not available 4 17:43:26 XR, lumbar spine 2023 024 [facility] Not available 4 17:44:21 Medication Orders allopurinol 100 [address] [facility] [facility] #[id number], [address], [place], [place], [id number], 4 16:20:45 Ozempic 0.25 mg or 0.5 mg (2 mg/3 mL) subcutaneou s pen injector 2023 024 [facility], [address], [place], [place], [id number], 4 16:21:15 carvedilol 12.[address] [facility] #46298, [address], [place], [place], [id number], 4 16:20:46 gabapentin 300 mg capsule 2023 024 [facility], [address], [place], [place], [id number], 4 16:20:49 Ozempic 0.25 mg or 0.5 mg (2 mg/3 mL) subcutaneou s pen injector 2023 024 [facility], [address], [place], [place], [id number], 4 14:34:29 triamcinolo ne acetonide 0.1 % topical ointment 2023 024 [facility] #30835, [address] , [place], [place], [id number], 15:56:50 OneTouch Verio test strips 2023 024 [place] [employer] [facility] #[id number], [address], [place], [place], [id number], 15:56:51 Patient TargetsNo targets recorded. Patient Instructions Encounter Date Encounter Id Patient Instructions Last Modified By Organization Details Last Modified Time 08/06/2023 [id number] dementia rating scale-2* Not available 08/07/2023 08:02:26 Personalized a lt [...] of this year Chronic Disease Risks Stroke: Active diagnosis, Continue current treatment plan Heart Attack: Active diagnosis, Continue current treatment plan Clogging of the Arteries: Active diagnosis, Continue current treatment plan Diabetes: Active diagnosis, Continue current treatment plan Secondary Prevention/Interven tion (detects treatable diseases before they may cause symptoms, disability, or ) Breast Cancer Screening with mammogram: Cervical/Uterine/Ov travon Cancer Screening: Osteoporosis Screening: Date Screening Last Performed: Colon Cancer Screening: Date Screening Last Performed: Eye Disease Screening: Your next exam in: Dementia Risk: Depression Screening: Active diagnosis, Continue current treatment plan Not available 08/06/2023 15:56:30 Reason for Referral Plate Maker Referral for Type 2 diabetes mellitus without complication Please call patient to schedule an appointment. Thank you. Referring Physician: Flex Tompkins, Family Medicine, Encounter Date: 08/06/2023 Results Created Date Observation Date Name Description Value Unit Range Abnormal Flag Note LastModifiedBy Organization Detail LastModifiedTime 08/06/19 24 08/06/2023 CBC/C OMPLE TE BLD COUNT W/DIF F white blood cells 10.0 x10'3 /uL 4.2-10 .8 Not Available [facility] (Lab) [address] [place], [address], 08/06/2023 20:28:05 08/06/19 24 08/06/2023 CBC/C OMPLE TE BLD COUNT W/DIF F red blood cells 3.31 x10'6 /uL 3.80-5 .20 low Not Available [facility] (Lab) [address] [place], [address], 08/06/2023 20:28:05 08/06/19 24 08/06/2023 CBC/C OMPLE TE BLD COUNT W/DIF F hemoglobin 10.5 g/dL 12.0-1 5.6 low Not Available [facility] (Lab) [address] [place], [address], 08/06/2023 20:28:05 08/06/19 24 08/06/2023 CBC/C OMPLE TE BLD COUNT W/DIF F hematocrit 32.9 % 35.7-4 5.7 low Not Available [facility] (Lab) [address] [place], [address], 08/06/2023 20:28:05 08/06/19 24 08/06/2023 CBC/C OMPLE TE BLD COUNT W/DIF F mean red cell volume 99.4 fL 82.0-9 9.0 high Not Available [facility] (Lab) [address] [place], [address], 08/06/2023 20:28:05 08/06/19 24 08/06/2023 CBC/C OMPLE TE BLD COUNT W/DIF F mean red cell hemoglobin 31.7 pg 27.0-3 3.0 Not Available [facility] (Lab) [address] [place], [address], 08/06/2023 20:28:05 08/06/19 24 08/06/2023 CBC/C OMPLE TE BLD COUNT W/DIF F mean RBC HGB concentratio n 31.9 g/dL 31.0-3 6.0 Not Available [facility] (Lab) [address] [place], [address], 08/06/2023 20:28:05 08/06/19 24 08/06/2023 CBC/C OMPLE TE BLD COUNT W/DIF F red cell distribution width 14.4 % 11.8-1 5.5 Not Available [facility] (Lab) [address] [place], [address], 08/06/2023 20:28:05 08/06/19 24 08/06/2023 CBC/C OMPLE TE BLD COUNT W/DIF F platelets 298 x10'3 /uL 150-40 0 Not Available [facility] (Lab) [address] [place], [address], 08/06/2023 20:28:05 08/06/19 24 08/06/2023 CBC/C OMPLE TE BLD COUNT W/DIF F mean platelet volume 10.9 fL 9.0-12 .4 Not Available [facility] (Lab) [address] [place], [address], 08/06/2023 20:28:05 08/06/19 24 08/06/2023 CBC/C OMPLE TE BLD COUNT W/DIF F neutrophils 78.2 % 39.0-7 2.0 high Not Available [facility] (Lab) [address] [place], [address], 08/06/2023 20:28:05 08/06/19 24 08/06/2023 CBC/C OMPLE TE BLD COUNT W/DIF F lymphocytes 11.5 % 16.0-4 7.0 low Not Available [facility] (Lab) [address] [place], [address], 08/06/2023 20:28:05 08/06/19 24 08/06/2023 CBC/C OMPLE TE BLD COUNT W/DIF F monocytes 6.7 % 5.0-12 .0 Not Available [facility] (Lab) [address] [place], [address], 08/06/2023 20:28:05 08/06/19 24 08/06/2023 CBC/C OMPLE TE BLD COUNT W/DIF F eosinophils 2.7 % 1.0-7. 0 Not Available [facility] (Lab) [address] [place], [address], 08/06/2023 20:28:05 08/06/19 24 08/06/2023 CBC/C OMPLE TE BLD COUNT W/DIF F basophils 0.3 % 0.0-2. 0 Not Available [facility] (Lab) [address] [place], [address], 08/06/2023 20:28:05 08/06/19 24 08/06/2023 CBC/C OMPLE TE BLD COUNT W/DIF F immature granulocytes 0.6 % 0.00-0 .50 high Not Available [facility] (Lab) [address] [place], [address], 08/06/2023 20:28:05 08/06/19 24 08/06/2023 CBC/C OMPLE TE BLD COUNT W/DIF F neutrophils, absolute count 7.83 x10'3 /uL 1.5-8. 0 Not Available [facility] (Lab) [address] [place], [address], 08/06/2023 20:28:05 08/06/19 24 08/06/2023 CBC/C OMPLE TE BLD COUNT W/DIF F lymphocytes, absolute count 1.15 x10'3 /uL 1.07-3 .43 Not Available [facility] (Lab) [address] [place], [address], 08/06/2023 20:28:05 08/06/19 24 08/06/2023 CBC/C OMPLE TE BLD COUNT W/DIF F monocytes, absolute count 0.67 x10'3 /uL 0.29-0 .99 Not Available [facility] (Lab) [address] [place], [address], 08/06/2023 20:28:05 08/06/19 24 08/06/2023 CBC/C OMPLE TE BLD COUNT W/DIF F eosinophils, absolute count 0.27 x10'3 /uL 0.02-0 .53 Not Available [facility] (Lab) [address] [place], [address], 08/06/2023 20:28:05 08/06/19 24 08/06/2023 CBC/C OMPLE TE BLD COUNT W/DIF F basophils, absolute count 0.03 x10'3 /uL 0.01-0 .08 Not Available [facility] (Lab) [address] [place], [address], 08/06/2023 20:28:05 08/06/19 24 08/06/2023 CBC/C OMPLE TE BLD COUNT W/DIF F immature granulocytes ,absolute 0.06 x10'3 /uL 0.00-0 .05 high Not Available [facility] (Lab) [address] [place], [address], 08/06/2023 20:28:05 08/06/19 24 08/06/2023 CBC/C OMPLE TE BLD COUNT W/DIF F nucleated red blood cells 0.0 % -0 Not Available [facility] (Lab) [address] [place], [address], 08/06/2023 20:28:05 08/06/19 24 08/06/2023 CBC/C OMPLE TE BLD COUNT W/DIF F NRBC# 0.00 x10'3 /uL Not Available [facility] (Lab) [address] [place], [address], 08/06/2023 20:28:05 08/06/19 24 08/06/2023 PROTE IN URINE RANDO M ur prot 10 mg/dL 0.0-11 .9 Not Available [facility] (Lab) [address] [place], [address], 08/06/2023 20:34:54 08/06/19 24 08/06/2023 IRON/ TIBC PANEL total iron binding capacity 260 mcg/d L 265-47 5 low Not Available [facility] (Lab) [address] [place], [address], 08/06/2023 20:40:29 08/06/19 24 08/06/2023 IRON/ TIBC PANEL % transferrin saturation 33 % 20-55 Not Available [facility] (Lab) [address] [place], [address], 08/06/2023 20:40:29 08/06/19 24 08/06/2023 IRON/ TIBC PANEL unsaturated iron bind capacity 175 mcg/d L 126-38 2 Not Available [facility] (Lab) [address] [place], [address], 08/06/2023 20:40:29 08/06/19 24 08/06/2023 IRON/ TIBC PANEL iron 85 mcg/d L 42-175 Not Available [facility] (Lab) [address] [place], [address], 08/06/2023 20:40:29 08/06/19 24 08/06/2023 LIPID PANEL cholesterol 157 mg/dL 140-19 9 NIH ERIC NSUS RECOM MENDA TION FOR ATIYA STERO L: ADULT CHILD LOW RISK: <200 <170 BORDE RLINE : <200- 239 ----- HIGH RISK: >240 >200 Not Available [facility] (Lab) [address] [place], [address], 08/06/2023 20:38:57 08/06/19 24 08/06/2023 LIPID PANEL triglyceride s 251 mg/dL 0-150 high NIH ERIC NSUS REPOR T RECOM MENDA TION FOR TRIGL YCERI RASHEED: ADULT CHILD LOW RISK: <150 ----- BODER LINE: 150-1 99 ----- HIGH RISK: >200 ----- Not Available [facility] (Lab) [address] [place], [address], 08/06/2023 20:38:57 08/06/19 24 08/06/2023 LIPID PANEL HDL cholesterol 40 mg/dL 40- Not Available [facility] (Lab) [address] [place], [address], 08/06/2023 20:38:57 08/06/19 24 08/06/2023 LIPID PANEL [...] WILL NOT BE REPOR ELEAZAR. Not Available [facility] (Lab) [address] [place], [address], 08/06/2023 20:38:57 08/06/19 24 08/06/2023 URIC ACID SERUM uric acid 5.2 mg/dL 2.5-6. 2 Not Available [facility] (Lab) [address] [place], [address], 08/06/2023 20:38:59 08/06/19 24 08/06/2023 COMP MET PANEL /LIVE R sodium 136 mmol/ L 137-14 5 low Not Available [facility] (Lab) [address] [place], [address], 08/06/2023 20:39:24 08/06/19 24 08/06/2023 COMP MET PANEL /LIVE R potassium 6.0 mmol/ L 3.5-5. 1 high Not Available [facility] (Lab) [address] [place], [address], 08/06/2023 20:39:24 08/06/19 24 08/06/2023 COMP MET PANEL /LIVE R chloride 109 mmol/ L 98-107 high Not Available [facility] (Lab) [address] [place], [address], 08/06/2023 20:39:24 08/06/19 24 08/06/2023 COMP MET PANEL /LIVE R carbon dioxide 17 mmol/ L 22-30 low Not Available [facility] (Lab) [address] [place], [address], 08/06/2023 20:39:24 08/06/19 24 08/06/2023 COMP MET PANEL /LIVE R anion gap 16.0 mmol/ L 14-22 Not Available [facility] (Lab) [address] [place], [address], 08/06/2023 20:39:24 08/06/19 24 08/06/2023 COMP MET PANEL /LIVE R glucose 132 mg/dL 70-99 high Not Available [facility] (Lab) [address] [place], [address], 08/06/2023 20:39:24 08/06/19 24 08/06/2023 COMP MET PANEL /LIVE R BUN 48 mg/dL 8-19 high Not Available [facility] (Lab) [address] [place], [address], 08/06/2023 20:39:24 08/06/19 24 08/06/2023 COMP MET PANEL /LIVE R creatinine 2.32 mg/dL 0.66-1 .25 high Not Available [facility] (Lab) [address] [place], [address], 08/06/2023 20:39:24 08/06/19 24 08/06/2023 COMP MET PANEL /LIVE R GFR 21 Refer ence Range : Saucier ge GFR Healt hy Adult : >60 [...] or ethni c subgr oups, such as Hisid nics. Outsi de the valid ated cruz [...] calcu lator is avail able on the F websi te: https ://ww w.kid kelsey.o rg/pr ofess ional s/kdo qi/gf r_cal culat or Not Available [facility] (Lab) [address] [place], [address], 08/06/2023 20:39:24 08/06/19 24 08/06/2023 COMP MET PANEL /LIVE R alkaline phosphatase 77 U/L 38-126 Not Available [facility] (Lab) [address] [place], [address], 08/06/2023 20:39:24 08/06/19 24 08/06/2023 COMP MET PANEL /LIVE R alanine aminotransfe rase 16 U/L 0-35 Not Available [facility] (Lab) [address] [place], [address], 08/06/2023 20:39:24 08/06/19 24 08/06/2023 COMP MET PANEL /LIVE R aspartate aminotransfe rase 21 U/L 15-37 Not Available [facility] (Lab) [address] [place], [address], 08/06/2023 20:39:24 08/06/19 24 08/06/2023 COMP MET PANEL /LIVE R bilirubin, total 0.40 mg/dL 0.20-1 .30 Not Available [facility] (Lab) [address] [place], [address], 08/06/2023 20:39:24 08/06/19 24 08/06/2023 COMP MET PANEL /LIVE R bilirubin, conjugated (direct) 0.00 mg/dL 0.00-0 .30 Not Available [facility] (Lab) [address] [place], [address], 08/06/2023 20:39:24 08/06/19 24 08/06/2023 COMP MET PANEL /LIVE R biliurubin,u ncong. (indirect) 0.20 mg/dL 0.00-1 .1 Not Available [facility] (Lab) [address] [place], [address], 08/06/2023 20:39:24 08/06/19 24 08/06/2023 COMP MET PANEL /LIVE R calcium 9.5 mg/dL 8.4-10 .2 Not Available [facility] (Lab) [address] [place], [address], 08/06/2023 20:39:24 08/06/19 24 08/06/2023 COMP MET PANEL /LIVE R total protein 6.7 g/dL 6.3-8. 2 Not Available [facility] (Lab) [address] [place], [address], 08/06/2023 20:39:24 08/06/19 24 08/06/2023 COMP MET PANEL /LIVE R albumin 4.4 g/dL 3.0-4. 4 Not Available [facility] (Lab) [address] [place], [address], 08/06/2023 20:39:24 08/06/19 24 08/06/2023 COMP MET PANEL /LIVE R globulin 2.3 g/dL 2.6-4. 2 low Not Available [facility] (Lab) [address] [place], [address], 08/06/2023 20:39:24 08/06/19 24 08/06/2023 COMP MET PANEL /LIVE R A/G ratio 1.9 ratio 1.0-2. 0 Not Available [facility] (Lab) [address] [place], [address], 08/06/2023 20:39:24 08/06/19 24 08/06/2023 PHOSP HORUS phosphorus 4.7 mg/dL 2.5-4. 5 high Not Available [facility] (Lab) [address] [place], [address], 08/06/2023 20:39:28 08/06/19 24 08/06/2023 PARAT HY.HO RM(PT H)INT ACT-W /O CA intact parathyroid hormone 89.6 pg/mL 24.0-7 8.0 high Pleas e note new refer ence range effec tive 04/27 . Not Available [facility] (Lab) [address] [place], [address], 08/06/2023 20:41:41 08/06/19 24 08/06/2023 VITAM IN D 25-HY DROXY vd25oh 73.8 NG/mL 30-100 Vitam in D Statu s: Defic ient: <20 ng/mL Insuf ficie nt: 20-29 ng/mL Suffi cient : 30-10 0 ng/mL Not Available [facility] (Lab) [address] [place], [address], 08/06/2023 20:45:55 08/06/19 24 08/06/2023 T4 FREE free T4 1.07 NG/dL 0.78-2 .19 Not Available [facility] (Lab) [address] [place], [address], 08/06/2023 20:49:42 08/06/19 24 08/06/2023 TSH thyroid-stim ulating hormone 2.890 uIU/m L 0.465- 4.680 Not Available [facility] (Lab) [address] [place], [address], 08/06/2023 21:02:31 08/06/19 24 08/06/2023 PATRICIA TIN ferritin 148 NG/mL 11.1-2 64 Not Available [facility] (Lab) [address] [place], [address], 08/06/2023 21:09:42 08/06/19 24 08/06/2023 HEMOG LOBIN A1C HA1C 6.9 % 4.0-6. 0 high Diabe clif Scree los Crite lindy: <5.7% Consi stent with absen ce of diabe clif 5.7-6 .4% Consi stent with incre ased risk for diabe clif (pred iabet es) >OR=6 .5% Consi stent with diabe clif REFER ENCE: Diabe clif Care 2016, 39(Woody ppl.1 ):s13 -s22 Not Available [facility] (Lab) [address] [place], [address], 08/06/2023 21:14:10 08/06/19 24 08/06/2023 SEDIM ENTAT ION RATE erythrocyte sedimentatio n rate 67 mm/HR 0-20 high Not Available [facility] (Lab) [address] [facility], [place], [address], 08/06/2023 21:47:07 11/15/19 23 11/01/2022 CT, sinus es, w/o contr ast No observ ation record ed. [address], [place], [address], 11/14/2022 14:14:11 12/15/19 audio gram + tympa nogra m No observ ation record ed. [email or web address] [facility] [address], [place], [address], 12/17/2022 08:34:14 01/01/20 23 05/28/2018 audio gram No observ ation record ed. [email or web address] [facility] [address], [place], [address], 12/31/2022 14:41:49 05/06/19 24 05/06/2023 MAMMO , scree los, bilat eral No observ ation record ed. [address], [place], [address], 08/06/2023 15:31:58 08/08/19 24 08/08/2023 XR, hip + pelvi s, unila teral No observ ation record ed. [address], [place], [address], 08/13/2023 11:48:32 08/08/19 24 08/08/2023 XR, lumba r spine No observ ation record ed. [address], [place], [address], 08/13/2023 11:48:33 08/14/19 24 08/14/2023 DEXA No observ ation record ed. [email or web address] [address], [place], [address], 08/15/2023 14:48:57 04/05/19 25 04/04/2024 XR, chest , 1 view No observ ation record ed. [address] [address], [place], [address], 04/07/2024 09:34:45 04/06/19 25 04/06/2024 US, bladd er No observ ation record ed. [address] [address], [place], [address], 04/07/2024 09:34:59 04/07/19 25 04/06/2024 US, renal No observ ation record ed. [email or web address] [address], [place], [address], 04/07/2024 23:05:39 04/08/19 25 04/08/2024 XR, chest , 1 view No observ ation record ed. [address] [address], [place], [address], 04/16/2024 08:32:38 04/08/19 25 04/08/2024 MRI, brain + brain stem, w/o contr ast No observ ation record ed. [address] [address], [place], [address], 04/16/2024 08:33:14 04/10/19 25 04/10/2024 XR, chest , 1 view No observ ation record ed. [address] [address], [place], [address], 04/16/2024 08:33:39 04/21/19 25 04/14/2024 US, echoc ardio gram No observ ation record ed. [email or web address] [address] [place], [address], 04/22/2024 21:52:54 Result Notes None recorded. Problems Name Problem SNOMED Code Status Onset Date Resolution Date Notes Provider Name and Address Organization Details Recorded Time Hyponatre [facility] 53043943 Active 2022 Flex Tompkins MD [address], [address], [place], [address] , [facility] 3 17:39:01 Serotonin syndrome 698579235 Active 2022 Flex Tompkins MD [address], [place], [address] , [facility] 3 08:36:46 Degenerat ion of cervical intervert ebral disc 08961888 Active 2022 Flex Tompikns MD [address], [place], [address] , [facility] 3 08:37:29 Dysfuncti on of left eustachia n tube 85776782692 [address]38 Active 2022 Flex Tompkins MD [address], [place], [address] , [facility] 3 14:51:33 Dizziness 383781331 Active 2022 Flex Tompkins MD [address], [place], [address] , [facility] 3 14:24:25 Gout 85973638 Active 2022 Flex Tompkins MD [address], [address], [place], [address] , [facility] 3 14:25:32 Chronic sinusitis 83663366 Active 2022 Noah Rodrigues MD [address], [place], [address] , [facility] 3 15:46:10 Sensorine ural hearing loss 72260799 Active 2022 Sherrie Rosas RN null, [facility] 3 15:16:32 Benign paroxysma l positiona l vertigo 574051183 Active 2022 Sherrie Rosas RN null, [facility] 3 15:17:40 Benign paroxysma l positiona l vertigo 979705496 Active 2022 Noah Rodrigues MD [address], [place], [address] , [facility] 3 15:22:05 Degenerat ion of lumbar intervert ebral disc 97363897 Active 2023 Flex Tompkins MD [address], [place], [address] , [facility] 4 15:51:27 Pain of left hip joint 61415736168 9100 Active 2023 Flex Tompkins MD [address] [facility], [place], [address] , [facility] 4 15:51:36 Eruption 017963873 Active 2023 Flex Tompkins MD [address] [facility], [place], [address] , [facility] 4 15:52:42 Lumbar spondylos is 513558441 Active 2023 Flex Tompkins MD [address], [address], [place], [address] , [facility] 4 11:49:02 Osteopeni a [id number] Active 2023 DEXA 08/22 Flex Tompkins MD [address], [address], [place], [address] , [facility] 4 07:44:45 Paronychi a of toe of right foot [id number] Active 04/26/ 2022 Not Available [facility] 3 00:51:28 Benign essential hypertens ion 4012424 Active Not Available [facility] 3 00:51:28 Chronic obstructi ve pulmonary disease 80731636 Active 2018 Not Available [facility] 3 00:51:28 Hyperkale tay 90991810 Active Not Available [facility] 3 00:51:28 Serum creatinin e outside reference range 224090903 Active Not Available [facility] 3 00:51:28 Raynaud's disease 197193502 Active 2018 Not Available [facility] 3 00:51:28 Fibromyal anahi 581581908 Active 2018 Not Available [facility] 3 00:51:28 Abdominal pain 08132327 Active Not Available [facility] 3 00:51:28 Perineal pain 242047271 Active Not Available [facility] 3 00:51:28 Sciatica 01028216 Active Not Available [facility] 3 00:51:28 Pneumonia 272962467 Active Not Available [facility] 3 00:51:28 Glaucoma 04880090 Active Not Available [facility] 3 00:51:29 Anemia 305252556 Active Not Available [facility] 3 00:51:29 Hyposmola lity 223141312 Active 2018 Not Available [facility] 3 00:51:29 Ferrell's esophagus 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 Active Last EGD 2 Not Available [facility] 3 00:51:29 Type 2 diabetes mellitus without complicat ion 076496853 Active Not Available [facility] 3 00:51:29 Hyperthyr oidism 71023486 Active Not Available [facility] 3 00:51:29 Depressiv e disorder 19092811 Active Not Available [facility] 3 00:51:29 Ulnar neuropath y 562098552 Active 2018 Not Available [facility] 3 00:51:29 Multiple bruising 160279816 Active Not Available [facility] 3 00:51:29 Migraine 98165367 Active Not Available [facility] 3 00:51:29 Osteoarth ritis 588769197 Active Not Available [facility] 3 00:51:29 Onychomyc osis of toenails 611942255 Active 2021 Not Available [facility] 3 00:51:29 Hypothyro idism 66421659 Active Not Available [facility] 3 00:51:29 Blood leukocyte number above reference range 082311286 Active Not Available [facility] 3 00:51:30 Nonexudat shakir age-relat ed macular degenerat ion 210291052 Active Not Available [facility] 3 00:51:30 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 Active Not Available [facility] 3 00:51:30 Degenerat shakir disorder of macula 271713410 Active Not Available [facility] 3 00:51:30 Nausea 831480040 Active 2021 Not Available [facility] 3 00:51:30 Chronic kidney disease stage 3 656875826 Active 2018 Not Available [facility] 3 00:51:30 Disorder of kidney and/or ureter 424150989 Completed Not Available [facility] 3 00:51:30 Sprain of ankle 45029771 Active Not Available [facility] 3 00:51:30 Hyperlipi demia 49481373 Active Not Available [facility] 3 00:51:30 Essential hypertens ion 96910711 Active Not Available [facility] 3 00:51:30 Polyp of colon 34077534 Active Not Available [facility] 3 00:51:31 Diabetes mellitus 16416684 Active Not Available [facility] 3 00:51:31 Cardiomeg sreekanth 2212975 Active Not Available [facility] 3 00:51:31 Iron deficienc y anemia 48116657 Active Not Available [facility] 3 00:51:31 Systemic sclerosis 82652892 Active Not Available [facility] 3 00:51:31 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 Procedures Surgical History Date Name Laterality Status Provider Name and Address Organization Details Recorded Time 08/05 Medicare Wellness CPT Code, subsequent completed Selina Cardoso RN [facility] [employer] 4 15:22:03 05/30 Transitional_Care_Managemen t completed Darlene Salazar MA [facility] [employer] 3 17:29:23 12/25 esophagogastroduodenoscopy completed Not Available [facility] 3 00:44:33 Orthopedic Surgery completed Not Available [facility] 3 00:44:33 tooth extraction completed Not Available [facility] 3 00:44:33 Tonsillectomy completed Not Available [facility] 3 00:44:33 colonoscopy completed Not Available [facility] 3 00:44:33 Carpal tunnel surgery completed Not Available [facility] 3 00:44:33 Rotator cuff surgery completed Not Available [facility] 3 00:44:33 Imaging Results None recorded. Procedure Notes None recorded. Medical Equipment None Reported. Allergies Allergen ID Allergen Name Allergen Category Reaction Reaction Severity Criticality Documentation Date Start Date Code Code System Note Provider Name and Address Organization Details Recorded Time 951 Urecholin e medicatio n Not available Not available Not available 05/30/2022 71545 RxNorm Not Available [facility] 3 00:57:51 952 Travatan medicatio n Not available Not available Not available 05/30/2022 52034 6 RxNorm Not Available [facility] 3 00:57:51 953 Substance with sulfonami de structure and antibacte rial mechanism of action (substanc e) medicatio n Not available Not available Not available 05/30/2022 14638 8003 SNOMED Not Available [facility] 3 00:57:51 954 sulfameth oxazole / trimethop rim medicatio n Not available Not available Not available 05/30/2022 40903 RxNorm Not Available [facility] 3 00:57:51 955 Prozac medicatio n Not available Not available Not available 05/30/2022 94159 RxNorm Not Available [facility] 3 00:57:51 956 Ocuvite Lutein medicatio n Not available Not available Not available 05/30/2022 22545 5 RxNorm Not Available [facility] 3 00:57:51 957 Naprosyn medicatio n hives severe Not available 05/30/2022 2 RxNorm Not Available [facility] 3 00:57:51 958 latex environme nt,medica tion Not available Not available Not available 05/30/2022 08088 91 RxNorm Not Available [facility] 3 00:57:51 959 cyclobenz aprine hydrochlo ride medicatio n Not available Not available Not available 05/30/2022 75183 RxNorm Not Available [facility] 3 00:57:52 960 egg extract food,medi cation Not available Not available Not available 05/30/2022 42672 15 RxNorm Not Available [facility] 3 00:57:52 961 Demerol medicatio n Not available Not available Not available 05/30/2022 79131 1 RxNorm Not Available [facility] 3 00:57:52 Medications Name Sig Start Date Stop Date Status Note LastModified by Organization Details LastModified Time Prescripti on - Renewal active Not Available Not Available Not Available amoxicilli n 500 mg capsule TK 1 [...] Available Not Available Not Available Fluzone High-Dose 2018- (PF) 180 mcg/0.5 mL intramuscu lar syringe [...] in Arterial blood by Pulse oximetry Systolic And Diastolic Provider Name and Address Organization Details Last Updated DateTime 4 149.86 cm 31.1 kg/m2 97743.2 2 g 98.1 [degF] 72 /min 95 % 95 % 152/78 mm[Hg] Selina Cardoso RN [place] [employer] [facility] 4 15:25:17 Date Recorded Body height Body mass index (BMI) Body weight Body temperature Heart rate Oxygen saturation Oxygen saturation in Arterial blood by Pulse oximetry Systolic And Diastolic Provider Name and Address Organization Details Last Updated DateTime 4 149.86 cm 31.3 kg/m2 13260.8 2 g 98.6 [degF] 66 /min 98 % 98 % 108/58 mm[Hg] Ashli Dc RN [facility] [employer] [facility] 4 14:20:11 Date Recorded Body height Body mass index (BMI) Body weight Body temperature Heart rate Oxygen saturation Oxygen saturation in Arterial blood by Pulse oximetry Systolic And Diastolic Provider Name and Address Organization Details Last Updated DateTime 4 149.86 cm 29.5 kg/m2 24698.4 9 g 98.7 [degF] 92 /min 97 % 97 % 114/68 mm[Hg] Ashli Dc RN [facility] [employer] [facility] 4 16:06:09 Date Recorded Body height Body mass index (BMI) Body weight Body temperature Provider Name and Address Organization Details Last Updated DateTime 12/06/2022 149.86 cm 29.9 kg/m2 11029.39 g 97.6 [degF] Sherrie Rosas RN [facility] [employer] [facility] 12/06/2022 14:58:10 Date Recorded Body height Body mass index (BMI) Body weight Body temperature Heart rate Oxygen saturation Oxygen saturation in Arterial blood by Pulse oximetry Systolic And Diastolic Provider Name and Address Organization Details Last Updated DateTime 3 149.86 cm 30.9 kg/m2 58474.6 3 g 98.2 [degF] 74 /min 97 % 97 % 128/60 mm[Hg] Selina Cardoso RN [facility] [employer] [facility] 3 15:27:51 Social History Question Answer Notes LastModified by Organizat ion Details LastModified Time Tobacco Smoking Status Never Smoker Not Available [facility] 05/30/2022 00:44:23 Are You Blind Or Do You Have Difficulty Seeing? No MIGRATION.[id number] Information not available 05/30/2022 What Is Your Level Of Caffeine Consumption? Moderate MIGRATION.481451 2380 Information not available 05/30/2022 How Much Tobacco Do You Chew? None MIGRATION.913956 7955 Information not available 05/30/2022 In The 14 Days Before Symptom Onset, Have You Had Close Contact With A Laboratory-confirm ed COVID-19 While That Case Was Ill? No MIGRATION.855223 3951 Information not available 05/30/2022 In The 14 Days Before Symptom Onset, Have You Had Close Contact With A Person Who Is Under Investigation For COVID-19 While That Person Was Ill? No MIGRATION.306926 1896 Information not available 05/30/2022 Are You Deaf Or Do You Have Serious Difficulty Hearing? No MIGRATION.322775 8687 Information not available 05/30/2022 What Type Of Diet Are You Following? DIABETIC MIGRATION.731794 7388 Information not available 05/30/2022 Which Illicit Or Recreational Drugs Have You Used? None MIGRATION.282045 3429 Information not available 05/30/2022 What Was The Date Of Your Most Recent Tobacco Screening? 08/06/2023 Information not available 08/14/2023 Have You Ever Been Counseled For Unhealthy Alcohol Use? No Information not available 07/11/2022 Do You Use Your Seat Belt Or Car Seat Routinely? Yes MIGRATION.242257 0690 Information not available 05/30/2022 Has Tobacco Cessation Counseling Been Provided? No MIGRATION.079157 1387 Information not available 05/30/2022 Have You Recently Traveled Abroad? No MIGRATION.695710 0800 Information not available 05/30/2022 Do You Have Difficulty Walking Or Climbing Stairs? No MIGRATION.175491 9413 Information not available 05/30/2022 Sex: Female Functional Status Question Answer Note LastModified by [employer] Details LastModified Time Do you use any illicit or recreational drugs? No MIGRATION.162480 3653 Information not available 05/30/2022 Do you or have you ever used any other forms of tobacco or nicotine? No MIGRATION.681006 2949 Information not available 05/30/2022 What is your level of alcohol consumption? Occasional MIGRATION.283275 9460 Information not available 05/30/2022 Do you or have you ever used smokeless tobacco? Never used smokeless tobacco MIGRATION.211950 8390 Information not available 05/30/2022 Do you have transportation difficulties? No MIGRATION.144505 1891 Information not available 05/30/2022 Are you able to walk? [place]OREST MIGRATION.277012 9971 Information not available 05/30/2022 Do you have difficulty doing errands alone? No MIGRATION.424570 8125 Information not available 05/30/2022 Are you able to care for yourself? Yes MIGRATION.652173 7705 Information not available 05/30/2022 What is your occupation? Retired MIGRATION.333084 7752 Information not available 05/30/2022 Do you have difficulty dressing or bathing? No MIGRATION.245401 4616 Information not available 05/30/2022 Do you or have you ever used e-cigarettes or vape? Never used electronic cigarettes MIGRATION.251185 7732 Information not available 05/30/2022 Mental Status Question Answer Note LastModified by Organizat ion Details LastModified Time Do you have difficulty concentrating, remembering or making decisions? No MIGRATION.352787591 6 Information not available 05/30/2022 Family History Relationship Description Onset Age of this Age Resolved Age Notes LastModified by Organization Details LastModified Time Maternal Grandmother Diabetes mellitus MIGRATION.991 [id number] Not available 05/30/2022 00:44:40 Mother Diabetes mellitus MIGRATION.222 2779046 Not available 05/30/2022 00:44:40 Mother Family history of stroke MIGRATION.322 4858099 Not available 05/30/2022 00:44:40 Mother Arthritis MIGRATION.480 8689653 Not available 05/30/2022 00:44:40 Mother Hypertensive disorder MIGRATION.142 6377418 Not available 05/30/2022 00:44:40 Mother Heart disease MIGRATION.757 0919260 Not available 05/30/2022 00:44:40 Brother Diabetes mellitus MIGRATION.768 8184434 Not available 05/30/2022 00:44:40 Brother Arthritis MIGRATION.837 2408698 Not available 05/30/2022 00:44:40 Brother Heart disease MIGRATION.110 1778437 Not available 05/30/2022 00:44:40 Sister Diabetes mellitus MIGRATION.687 3153384 Not available 05/30/2022 00:44:40 Sister Family history of stroke MIGRATION.980 9128954 Not available 05/30/2022 00:44:40 Sister Arthritis MIGRATION.641 8470157 Not available 05/30/2022 00:44:40 Sister Hypertensive disorder MIGRATION.552 4218391 Not available 05/30/2022 00:44:40 Sister Heart disease MIGRATION.102 1886113 Not available 05/30/2022 00:44:40 Father Arthritis MIGRATION.655 5662649 Not available 05/30/2022 00:44:40 Father Heart disease MIGRATION.025 9170331 Not available 05/30/2022 00:44:40 Unspecified Relation Family history of malignant neoplasm MIGRATION.213 8373124 Not available 05/30/2022 00:44:40 Notes:2 cousins breast [...] Terry APRN [address], [address], [place], [address], [employer] 12/05/2023 07:41:47 zoster recombinant 9 completed Magaly Terry APRN [address], [address], [place], [address], [facility] 12/05/2023 07:41:47 Influenza, high-dose, quadrivalent, PF 0 completed Magaly Terry APRN [address], [place], [address], [facility] 12/05/2023 07:41:47 Influenza, high-dose, quadrivalent, PF 1 completed Magaly Terry APRN [address], [address], [place], [address], [employer] [facility] 12/05/2023 07:41:47 Influenza, high-dose, quadrivalent, PF 2 completed Magaly Terry APRN [address], [address], [place], [address], [employer] 12/05/2023 07:41:47 COVID-19 vaccine, vector-nr, rS-Ad26, PF, 0.5 mL 1 wilbur Terry APRN [address], [address], [place], [address], [employer] 12/05/2023 07:41:47 COVID-19 vaccine, vector-nr, rS-Ad26, PF, 0.5 mL 1 completed Magaly Terry APRN [address], [address], [place], [address], [facility] [employer] [facility] 12/05/2023 07:41:47 Influenza, high-dose, trivalent, PF 9 completed Magaly Terry APRN [address], [facility] [address], [place], [address], [facility] [place] [employer] [facility] 12/05/2023 07:41:47 DTP 2 completed Not Available [facility] 05/30/2022 00:57:44 Influenza, split virus, quadrivalent, preservative 0 completed Magaly Terry APRN [address], [place], [address], [facility] [place] [employer] [facility] 12/05/2023 07:41:47 pneumococcal polysaccharide PPV23 0 completed Not Available [facility] 05/30/2022 00:57:44 Pneumococcal conjugate PCV 13 9 completed Not Available [facility] 05/30/2022 00:57:44 Influenza, high-dose, quadrivalent, PF 3 completed Selina Cardoso RN [facility], [facility] [employer] [facility] 02/05/2023 18:11:15 Past Encounters Encounter ID Performer Location Encounter Start Date Encounter Closed Date Diagnosis/Indication Diagnosis SNOMED-CT Code Diagnosis ICD10 Code Diagnosis Note [id number] S_Histor ic_[place] [facility] [place] [address] [place] [address] 05/30/2020 00:00:00 05/30/2020 16:11:25 [id number] Flex Tompkins MD [facility] Primary [address] [place] [address] 08/24/2020 00:00:00 08/25/2020 16:07:39 [id number] Flex Tompkins MD [facility] [address] [facility] [address] [place] [address] 11/22/2020 00:00:00 11/22/2020 14:17:09 [id number] Flex Tompkins MD [facility] [place] [address] [place] [address] [address] [place] [address] 06/22/2021 00:00:00 06/28/2021 19:55:01 [id number] Nimesh Pulido DPM [facility] [address] [address] 07/10/2021 00:00:00 07/25/2021 23:15:15 [id number] Nimesh Pulido DPM [facility] [address] 07/17/2021 00:00:00 07/25/2021 23:10:50 [id number] Flex Tompkins MD [facility] [place] [address] [place] [address] [address] [place] [address] 07/20/2021 00:00:00 07/28/2021 10:34:36 [id number] Flex Tompkins MD [facility] [place] [address] [place] [address] [address] [place] [address] 08/21/2021 00:00:00 08/21/2021 12:53:12 [id number] [facility] [address] [place] [address] 08/24/2021 00:00:00 08/24/2021 15:21:53 [id number] Flex Tompkins MD [facility] [place] [address] [place] [address] [address] [place] [address] 09/19/2021 00:00:00 09/28/2021 09:11:56 [id number] Nimesh Pulido DPM [facility] [address] [address] 10/06/2021 00:00:00 10/06/2021 10:29:12 [id number] Nimesh Pulido DPM [facility] [place] [address] [facility] [address] [place] [address] 10/26/2021 00:00:00 10/26/2021 14:30:05 [id number] Flex Tompkins MD [facility] [place] [address] [place] [address] 11/28/2021 00:00:00 11/28/2021 10:12:21 [id number] _ATHN_MIGR ATION_1 _ATHENA_M IGRATION_ DEFAULT_1 _1 , 12/20/2021 00:00:00 12/20/2021 12:09:40 [id number] _ATHN_MIGR ATION_1 _ATHENA_M IGRATION_ DEFAULT_1 _1 , 01/10/2022 00:00:00 01/10/2022 16:06:09 [id number] Flex Tompkins MD [facility] [place] [address] [place] [address] 02/28/2022 00:00:00 02/28/2022 14:07:31 [id number] Flex Tompkins MD [facility] [place] [address] [facility] [address] [place] [address] 03/14/2022 00:00:00 03/30/2022 11:29:26 [id number] Flex Tompkins MD [facility] [place] [address] [facility] [address] [place] [address] 03/16/2022 00:00:00 03/16/2022 18:01:17 [id number] Flex Tompkins MD [facility] [place] [address] [place] [address] 04/11/2022 00:00:00 04/11/2022 12:33:00 [id number] Flex Tompkins MD [facility] [place] [address] [place] [address] 04/24/2022 00:00:00 04/25/2022 18:13:59 [id number] Flex Tompkins MD [facility] Primary Care [facility] [address] [facility] [address] [place] [address] 05/23/2022 00:00:00 05/28/2022 17:45:36 [id number] Flex Tompkins MD [facility] Primary Care [facility] [address] [facility] [address] [place] [address] 05/30/2022 17:11:30 05/31/2022 11:38:51 Hyponatremia 41746146 E87.1 likely contributi ng to fallscheck bmp, may need to temporaril y start sodium replacemen t Anemia 020596640 D64.9 recheck labs Serotonin syndrome 14898 9000 G25.79 improved since d/c citalopram mood doing well Degenerati on of cervical intervertebral disc 81573543 M50.30 scheduled for surgery on Saturdaywill correct any electrolyt e abnormalit ies on labs drawn today and clear for surgerypt has significan t quality of life issues due to neck pain [id number] JORDYN Phan [facility] Primary Care [facility] [address] [facility] [address] [place] [address] 07/11/2022 15:10:56 07/11/2022 16:08:11 Hyponatremia 88761638 E87.1 Recheck sodium levels. Continue sodium supplement . Chronic ki dney disease stage 3 123994716 N18.30 Continue f/u with Dr. Reyna (nephrolog ist). Degenerati on of cervical intervertebral disc 66550255 M50.30 Currently in collar. States she is doing well, minimal pain. Will f/u with surgeon 07/18/22. [id number] Flex Tompkins MD [facility] Primary Care [facility] [address] [facility] [address] [facility] [place] [address] 08/06/2022 14:07:54 08/06/2022 15:03:33 Dysfunction of left eustachian tube 3806882071 865191 H69.92 Benign ess ential hypertension 5698848 I10 Hyperthyroidism 02344716 E05.90 Iron defic iency anemia 83304193 D50.9 Type 2 mabel betes mellitus without complication 007593002 E11.9 [id number] Flex Tompkins MD [facility] Primary [facility] [place] [address] [facility] [address] [place] [address] 09/11/2022 14:13:22 09/11/2022 14:39:54 Dizziness 690868507 R42 likely due to degenerati ve disk disease cervical spinecheck US carotid Gout 18561060 M10.9 ?gout attackchec k uric acid Essential hypertension 37418246 I10 stable Iron defic iency anemia 85339260 D50.9 Type 2 mabel betes mellitus without complication 898220651 E11.9 [id number] Noah Rodrigues MD [facility] [place] [address] [place] [address] 09/20/2022 15:17:33 09/20/2022 16:04:27 Chronic sinusitis 94484841 J32.9 [id number] Noah Rodrigues MD [facility] [address] [place] [address] 10/24/2022 15:29:01 10/24/2022 16:16:21 Chronic sinusitis 11005962 J32.9 [id number] Flex Tompkins MD [facility] Primary Care [place] [address] [facility] [address] [place] [address] 10/26/2022 15:25:01 10/26/2022 15:31:35 [id number] Flex Tompkins MD [facility] Primary Care [place] [address] [facility] [address] [place] [address] 11/02/2022 11:05:59 11/02/2022 11:36:05 Dizziness 106075891 R42 US carotid normalLabs stablehas f/u with ENT, CT did show sinus thickening if no improvemen t after sinus treatment, will refer to neurology for further evaluation reviewed s/s that warrant urgent/александр rgent eval in meantime [id number] Flex Tompkins MD [facility] Primary Care [place] [address] [facility] [address] [place] [address] 11/28/2022 15:58:32 12/24/2022 15:44:59 [id number] Noah Rodrigues MD [facility] E[place] [address] [place], [place] [address] 12/06/2022 14:47:54 12/06/2022 15:52:47 Chronic sinusitis 99345146 J32.9 Benign par oxysmal positional vertigo 559240747 H81.10 [id number] Flex Tompkins MD [facility] [place] [address] [place] [address] 02/05/2023 15:22:05 02/05/2023 15:48:32 Administration of influenza vaccine 74944492 Z23 Dizziness 924241946 R42 US carotid normalLabs stablehas f/u with ENT, CT did show sinus thickening if no improvemen t after sinus treatment, will refer to neurology for further evaluation reviewed s/s that warrant urgent/александр rgent eval in meantime update 02/05/23: resolved, f/u prn [id number] Flex Tompkins MD [facility] [place] [address] [facility] [address] [place] [address] 08/06/2023 15:13:47 08/16/2023 13:51:10 Adult health examination 773776501 Z00.00 Mammogram normal 05/25DEXA repeat orderedshi ngrix series 01/17 and 03/19Get flu vaccine yearlyteta nus shot done 2011Prevna r 13 given 2019Pneumo vax 23 given 2020Recomm end RSV vaccineRec ommend covid boosterCol onoscopy 12/2021- bular adenoma repeat 2026Labs up to date Screening for disorder 420789263 Z13.9 Postmenopausal state 764 12696 Z78.0 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 73012 K22.70 EGD 12/21 with recommenda tion to repeat EGD 12/23 Chronic ki dney disease stage 3 053460309 N18.30 I12.9 E55.9 E11.22 sees nephrology Benign ess ential hypertension 5797506 I10 check labs, if GFR is acceptable , will increase lisinopril to 40 mg daily Chronic ob structive pulmonary disease 51649998 J44.9 stable Hyperlipidemia 14372212 E78.5 stable Hypothyroidism 99351946 E03.9 stable Iron defic iency anemia 83187977 D50.9 uncertain statuschec k labs Primary fi bromyalgia syndrome 38118893 M79.7 stable Type 2 mabel betes mellitus without complication 489583256 E11.9 Eye exam up to datepodiat ry referral givencheck labs Gout 21000299 M10.9 stablerech blanca uric acid Degenerati on of lumbar intervertebral disc 02756523 M51.36 will check xrays, has seen pain mgmt in the past Pain of le ft hip joint [id number] 26256 M25.552 Eruption 513805706 R21 [id number] CEAZR Albert [facility] [address] [place] [address] 09/19/2023 14:13:42 09/19/2023 15:09:46 Diabetes mellitus 80694877 E11.9 -hx of positive use with jacqui hartman blood sugar occ, 120s to 150s-trial ozempic, f/u in 1 month [id number] CEZAR Albert [facility] [address] [place] [address] 11/21/2023 16:00:44 11/21/2023 16:49:44 Diabetes mellitus 45036032 E11.9 no negative side effects noted with use of ozempicnot es blood sugars being as low as the 80sencoura ge snack before bed time Neuropathy 871722878 G62 .9 Gout 64690913 M10.9 Renewal of prescription 642615981 Z76.0 Health Concerns Section Related Observation LastModified by Organization Detai ls LastModified Time None Recorded Concern Status LastModified by Organization Details LastModified Time None Recorded Advance Directives Directive None Recorded Payers Insurance Date Sequence Insurance Name Policy Number Policy [place] Covered Member ID [place] Member ID Guarantor Name 11/20/2023 1 [facility] (MEDICARE REPLACEMENT/A DVANTAGE - HMO) [id number] Kandace Cole [id number] Kandace Cole Notes Date Note Type Note Provider Name and Address Organization Details Recorded Time 12/06/2022 text/html this patient reports that antibiotics were successful and eliminating her sinusitis symptoms. However she does have left-sided hearing loss and dizziness. This follows a fall. 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 Noah Rodrigues MD [address] [employer], [place], [address], [place] 12/06/2022 15:22:51 02/05/2023 text/html had neck surgery [...] is overall feeling well. Flex Tompkins MD [address] [employer], [place], [address], [place] 02/05/2023 15:43:35 08/06/2023 text/html Blood pressure h as been elevated Blood sugars have been fairly good pain down left leg, hard to bear weight, constantno numbness rash started about 3 weeks ago-top of foot, elbows and knees. Using athletes foot cream Flex Tompkins MD [address] [employer], [place], [address], [employer] 08/14/2023 17:47:57 09/19/2023 text/html pt is here to review labs/imaging CEZAR Albert [address] [address], [place], [address], [employer] [facility] 09/19/2023 14:36:16 11/21/2023 text/html pt is here for f /u on meds Farhat Crocker, BUSINESS [employer] [address] [place] [address], [place], [address], [place] 11/21/2023 16:25:25 OBGyn Episode No OBEpisode recorded.
--- OUTSIDE RECORDS SUMMARY | 2024-10-15 02:38 | XMS_ITS | Referral Summary ---
Author Organization [facility] [place] [address] [facility] [address] Address [address] [place] [address] Care Team Providers Care Kayaking Instructor Name Role Phone Cheri Calderon NP Primary Care Provider [phone] Encounters Date Type Department Care Team Description 10/09/2024 ACO Medication Access [facility] Accountable Care [address] [address] Elizabeth Lilly CPhT 09/30/2024 ACO Outreach [address] [address] Marlena Brooks RN 09/23/2024 Telephone [facility] Cardiology [address] [place] [address] [place] [phone] Zaina Murillo MD 09/14/2024 10:00 AM CDT Office Visit [facility] Cardiology [address] [facility] [address] [place] [address] Rhea Torres NP Atrial fibrillation, unspecified type (HCC); Presence of Amulet left atrial appendage closure device; History of GI bleed; Hospital discharge follow-up 09/04/2024 Telephone [facility] Cardiology [address] [place] [address] [place] [phone] Alyssa Briseno NP 09/04/2024 ANTELMO IP Outreach [facility] Accountable Care Organization [address] [place] [address] Charla Bo LPN 09/02/2024 7:11 AM CDT - 09/03/2024 3:06 PM CDT Hospital Encounter [address] [address] Zaina Murillo MD Presence of Amulet left atrial appendage closure device [Z95.818] (Primary Dx); Atrial fibrillation (HCC); H/O: GI bleed; Hypertension associated with diabetes (HCC) Discharge Disposition: Discharge to home or self care 09/02/2024 7:35 AM CDT - 09/02/2024 11:59 PM CDT Hospital Encounter [facility] Cardiac Catheterization Lab [address] [place] [address] Discharge Disposition: Discharge to home or self care 09/02/2024 10:00 AM CDT - 09/02/2024 11:30 AM CDT Surgery [facility] Cardiac Catheterization Lab [address] [place] [address] Zaina Murillo MD PERC LANDY CLOSE W/IMPLANT 05993 09/02/2024 9:46 AM CDT Anesthesia Event [facility] Cardiac Catheterization Lab [address] [place] [address] Drew Cervantes MD Barnhart, Lynlee Jo, NP 08/26/2024 12:15 PM CDT Pre-Admission Testing [facility] Pre Anesthesia Testing [address] [place] [address] Encounter for preadmission testing (Primary Dx); Other specified hemorrhagic conditions 08/25/2024 Results Follow-Up [facility] Family Medicine [address] [phone] Cheri Calderon NP CBC with auto differential, Iron profile w/ IBC 08/19/2024 8:06 AM CDT Anesthesia Event [facility] GI Lab [address] [place] [address] Maite Hernandes MD PhD 08/19/2024 5:56 AM CDT - 08/19/2024 11:59 PM CDT Hospital Encounter [facility] GI Lab [address] [place] [address] Atrial fibrillation, unspecified type (HCC) Discharge Disposition: Discharge to home or self care 08/19/2024 8:00 AM CDT - 08/19/2024 8:30 AM CDT Surgery [facility] GI Lab [address] [place] [address] Zaina Murillo MD TRANSESOPHAGEAL ECHOCARDIOGRAM 08/19/2024 5:56 AM CDT - 08/19/2024 9:21 AM CDT Hospital Encounter [facility] GI Lab [address] [place] [address] Zaina Murillo MD Discharge Disposition: Discharge to home or self care 08/17/2024 Telephone [facility] Cardiology [address] [facility] [address] [place] [phone] Zaina Murillo MD 08/14/2024 2:30 PM CDT Office Visit [facility] Cardiology [address] [facility] [address] [place] [phone] Rhea Torres NP Paroxysmal atrial fibrillation (HCC) (Primary Dx); History of GI bleed; Type 2 diabetes mellitus with stage 3b chronic kidney disease, without long-term current use of insulin (HCC) 08/13/2024 Orders Only [facility] Internal Medicine at [address] [place] [phone] Dinesh Mccormick MD 08/12/2024 Telephone [facility] Cardiology [address] [facility] [address] [place] [address] Zaina Murillo MD 08/11/2024 Orders Only [facility] Cardiac Catheterization Lab [address] [place] [address] Zaina Murillo MD Atrial fibrillation (HCC) (Primary Dx); H/O: GI bleed 08/11/2024 1:30 PM CDT Office Visit [facility] Internal Medicine at [place] [address] [place] [address] Cheri Calderon NP Hypertension associated with diabetes (HCC) (Primary Dx); BMI 25.0-25.9,adult; Type 2 diabetes mellitus with hyperlipidemia (HCC); Sore nose; Abnormal finding of blood chemistry, unspecified; Post-menopausal 08/10/2024 12:30 PM CDT Office Visit [facility] Medical [facility] Cardiology [address] [place] [address] Zaina Murillo MD Hypertension associated with diabetes (HCC) (Primary Dx); Paroxysmal atrial fibrillation (HCC); Mixed hyperlipidemia; Stage 3a chronic kidney disease (HCC); Dyspnea on exertion; Type 2 diabetes mellitus with hyperlipidemia (HCC); H/O: GI bleed 08/06/2024 Telephone [facility] Medical [facility] Internal Medicine at [place] [address] [place] [address] Cheri Calderon NP 07/29/2024 Telephone [facility] Internal Medicine at [place] [address] [place] [address] Cheri Calderon NP from Last 3 Months Allergies Active Allergy [...] Unknown 09/07/2018 Travoprost Unknown 09/07/2018 Vit C-Vit K-Euugkz-Twbfdiav Other (See comments) 08/26/2024 Medications buPROPion SR [...] (four) hours as needed 2 Active vitamins A,C,R-dhvc-eynijj (PreserVision AREDS) 2,148 mcg-113 mg-45 mg-17.4mg tablet [...] 02/23/2019 Assessment & Plan (05/12/2024 11:22 AM ZIPPER SETTER LOCKSTITCH): This is a significant, separately identifiable problem that was evaluated and managed on the same day as the wellness exam Mixed hyperlipidemia 02/23/2019 Type 2 diabetes mellitus with hyperlipidemia Degeneration of cervical intervertebral disc 12/2009 Resolved Problems Problem Noted Date Diagnosed Date Resolved Date Obesity (BMI 30-39.9) 05/12/20242024 Assessment & Plan (05/12/2024 10:46 AM ZIPPER SETTER LOCKSTITCH): Discussed the patients BMI: The BMI is above average BMI management is complete. BMI follow-up includes: Nutrition Counseling and education provided Immunizations Immunization Administration Dates Next Due DTP 07/18/2011 Influenza LAIV (Nasal) 12/09/2019 Influenza, Quadrivalent, Hig h Dose, Preservative Free, Intrr 12/08/2019,01/25/2019 Influenza, Quadrivalent, Spl it, Intramuscular 12/09/2019,12/30/2018 Influenza, Trivalent, High D ose, Split, Preservative Free, Intramuscular 12/08/2019,01/25/2019 Influenza, Unspecified 04/01/2024(Deferr ed: Patient Refused - off season),04/01/2024(Deferred: Patient Refused),04/01/2023,04/01/2023(Deferre d: Patient Refused) Voltari (J&J) SARS-CoV-2 Vaccination 06/08/2020 Pneumococcal Conjugate PCV [...] on file Legal Sex Female 8:14 PM ZIPPER SETTER LOCKSTITCH Gender Identity Not on file Sexual Orientation [...] 09/14/2024 9:52 AM CDT Plan of Treatment Not on file Medical Devices Implanted Type Area Casting Molder Device Identifier Shelf Expiration Date Model / Serial / Lot [employer] Occluder Cvasc Landy Flexible Braided Amplatzer Amulet 18mm Nitinol [id number] - [id number] Implanted:Qty: 1 on 09/02/2024 by Zaina Murillo MD at [facility] Septal Defect Closure Device [employer] 07/29/2028 [id number] / / [id number] Procedures Procedure Name Priority Date/Time Associated Diagnosis [...] AM CDT PERC LANDY CLOSURE W/IMPLANT (WATCHMAN) [id number] Routine 09/02/2024 10:34 AM CDT Atrial fibrillation (HCC) H/O: GI bleed Procedure Note - Frank Narayan MD - 09/02/2024 10:34 AM CDTThis note is in progress. HISTORY 74 y.o. old female with a history including atrial fibrillation, with highrisk of bleeding on usp OAC presents for consideration of leftatrial appendage [...] was accessed using the modified Seldingertechnique. An 8-English sheath was inserted. TRANSSEPTAL PUNCTURE The patient was kept therapeutically anticoagulated throughout the case. Transseptal puncture was made to gain access to the left atrium using EaglEyeMed needle system. Transseptal catheterization was performed and guidedby YUVAL see imaging note. The transseptal puncture was performed mid andinferior position. The wire was advanced through the left atrium and adouble curved delivery sheath was placed over the wire. An Amplatzer delivery catheter TorqVue was advanced into the left atrialappendage. A 5-English pigtail was used to gain access into [...] HIGH RANGE Routine 09/02/2024 10:21 AM CDT WV AN ELECTIVE ENDOTRACHEAL AIRWAY Routine 09/02/2024 10:00 [...] mammogram HEMOGLOBIN A1C Routine 06/02/2024 10:33 AM ZIPPER SETTER LOCKSTITCH Hypertension associated with diabetes (HCC) Type 2 diabetes mellitus with hyperlipidemia (HCC) LIPID PANEL Routine 06/02/2024 10:33 AM ZIPPER SETTER LOCKSTITCH Type 2 diabetes mellitus with hyperlipidemia (HCC) ALBUMIN CREATININE RATIO, URINE Routine 06/02/2024 10:33 AM ZIPPER SETTER LOCKSTITCH Hypertension associated with diabetes (HCC) from Last 3 Months or Most Recently Relevant to Health Maintenance Results * (ABNORMAL) CBC with auto differential (09/07/2024 2:02 PM CDT) WBC 9.2 3.8 - 10.8 Thousand/u L [facility] RBC, POC 3.15(L) 3.80 - 5.10 Million/uL [facility] Hgb 9.7(L) 11.7 - 15.5 g/dL [facility] Hct 30.7(L) 35.0 - 45.0 % [facility] MCV 97.5 80.0 - 100.0 fL [facility] [place]aly MCH 30.8 27.0 - 33.0 pg [facility] [...] 140 - 400 Thousand/u L [facility] MPV 10.8 7.5 - 12.5 fL [...] 09/08/2024 3:07 AM CDT FASTING:NO FASTING: NO us Zaina Murillo MD LAB BLOOD ORDERABLES Final Result [facility] [address] [place] [address] * ECG 12 lead (09/03/2024 10:43 AM CDT) 09/03/2024 10:4 3 AM CDT Narrative [facility] - 09/03/2024 12:01 PM CDT Vent Rate: 82 bpm RR Interval: 726 msec WV Interval: 188 msec QRS Duration: 85 msec QT Interval: 340 msec QTC Interval: 379 msec P-R-T Central: 36 - 41 - 52 degrees IMPRESSION: SINUS RHYTHM NORMAL ECG Electronically Signed By: Juan Manuel Bliss MD, [facility] us Zaina Murillo MD ECG ORDERABLES Domitila kailyn Result Performing Organization Address City/[facility] Co de Phone Number [facility] Guerrilla RF [facility] * (ABNORMAL) CBC without differential (09/03/2024 [...] CH MCHC 30.6(L) 32.3 - 35.7 g/dL [facility] RDW CV 14.6 11.1 - 14.9 % [facility] RDW SD 51.8(H) 35.7 - 48.1 fL [facility] NRBC abs 0.00 0.00 - 0.01 K/cumm [facility] Blood 09/03/2024 9:47 AM CDT 09/03/2024 10:02 AM CDT us Alyssa Briseno NP LAB BLOOD ORDERABLES Final Resul t [facility] [address] [facility] Department of Laboratories [place] [id number] * TRANSTHORACIC ECHO (TTE) LIMITED/FOLLOW UP W LTD DOPPLER/CF WO CONTRAST (09/03/2024 7:21 AM CDT) EF Mod BP 60 % CONS SCIMAGE Anatomical Region Laterality Modality Ultrasound 09/03/2024 6:58 AM CDT Narrative 09/03/2024 8:39 AM CDT [place] [id number] Limited Echocardiogram Report Patient Name: KANDACE MCCLENDON R : 1950 Study Date: 09/03/2024 6:58:02 AM Gender: F Tech: Location: [id number] Ref Provider: ZAINA MURILLO Height(Cm): 149 BSA: [...] Procedure Note Karrie Perez DO - 09/03/2024 [place] [address] Limited Echocardiogram Report Patient Name: KANDACE MCCLENDON R : 1950 Study Date: 09/03/2024 6:58:02 AM Gender: F Tech: Location: [id number] [facility] Provider: ZAINA MURILLO Height(Cm): 149 BSA: [...] effusion. Electronically Signed By: Karrie Perez DO, SOHAIL GARZA FASNC 09/03/2024 8:39:14 AM CDT Zaina Murillo MD [...] 5:04 AM CDT 09/03/2024 5:29 AM CDT Zaina Murillo MD LAB BLOOD ORDERABLES Final Result [facility] [address] Department [place] [address] * (ABNORMAL) Differential, auto (09/03/2024 5:04 AM CDT) Neutrophil abs 7.31(H) 1.50 - 6.50 K/cumm Imm gran abs 0.04 0.00 - 0.10 K/cumm [facility] Lymphocyte abs 0.84 0.80 - 3.30 K/cumm [facility] Monocyte abs 0.53 0.20 - 0.80 K/cumm [facility] Eosinophil abs 0.01 0.00 - 0.50 K/cumm [facility] Basophil abs 0.01 0.00 - 0.10 K/cumm [facility] Neutrophil pct 83.6 % [facility] Comment: Interpretive Data Percent cell count reference ranges are not reported, since discordance with absolute values may lead to misinterpretation of CBC data. Current Interpretive Data was last revised on 2017. Imm gran pct 0.5 % [facility] Comment: Interpretive Data Percent cell count reference ranges are not reported, since discordance with absolute values may lead to misinterpretation of CBC data. Current Interpretive Data was last revised on 2017. Lymphocyte pct 9.6 % [facility] Comment: Interpretive Data Percent cell count reference ranges are not reported, since discordance with absolute values may lead to misinterpretation of CBC data. Current Interpretive Data was last revised on 2017. Monocyte pct 6.1 % [facility] Comment: Interpretive Data Percent cell count reference ranges are not reported, since discordance with absolute values may lead to misinterpretation of CBC data. Current Interpretive Data was last revised on 2017. Eosinophil pct 0.1 % [facility] Comment: Interpretive Data Percent cell count reference ranges are not reported, since discordance with absolute values may lead to misinterpretation of CBC data. Current Interpretive Data was last revised on 2017. Basophil pct 0.1 % [facility] Comment: Interpretive Data Percent cell count reference ranges are not reported, since discordance with absolute values may lead to misinterpretation of CBC data. Current Interpretive Data was last revised on 2017. Blood 09/03/2024 5:04 AM CDT 09/03/2024 5:30 AM CDT us Zaina Murillo MD LAB BLOOD ORDERABLES Final Result [facility] [address] Department [place] [address] * (ABNORMAL) CBC with auto differential (09/03/2024 5:04 AM CDT) WBC 8.74 3.80 - 9.90 K/cumm Hgb 8.4(L) 11.9 - 15.5 g/dL [facility] Hct 25.9(L) 35.6 - 45.5 % [facility] Plt 237 150 - 400 K/cumm [facility] MPV 10.3 9.1 - 12.3 fL [facility] RBC 2.82(L) 3.90 - 5.20 M/cumm [facility] CH MCV 91.8 81.3 - 96.4 fL [facility] CH MCH 29.8 27.1 - 33.3 pg [facility] MCHC 32.4 32.3 - 35.7 g/dL [facility] CH RDW CV 14.6 11.1 - 14.9 % [facility] RDW SD 49.1(H) 35.7 - 48.1 fL [facility] NRBC abs 0.00 0.00 - 0.01 K/cumm [facility] Blood 09/03/2024 5:0 4 AM CDT 09/03/2024 5:30 AM CDT Zaina Murillo MD LAB BLOOD ORDERABLES Final Result Performing Organization Address City/[facility]/ZIP Co de Phone Number [facility] [address] [facility] [employer] [place] [address] * Magnesium (09/03/2024 5:04 AM CDT) Pathologist [facility] Magnesium 1.9 1.4 - 2.5 mg/dL Blood 09/03/2024 5:04 AM CDT 09/03/2024 5:29 AM CDT Zaina Murillo MD LAB BLOOD ORDERABLES Final Result [facility] [address] [facility] [employer] [place] [address] * (ABNORMAL) Basic metabolic panel (09/03/2024 5:04 AM CDT) Sodium 136 135 - 145 mmol/L Potassium, pl 4.2 3.3 - 4.9 mmol/L [facility] Chloride 104 97 - 110 mmol/L [facility] [...] 2022. Calcium 8.7 8.5 - 10.3 mg/dL [facility] Blood 09/03/2024 5:04 AM CDT 09/03/2024 5:29 AM CDT Zaina Murillo MD LAB BLOOD ORDERABLES Final Result JOSE R [address] Department [place] [address] * POCT glucose (09/02/2024 5:20 PM CDT) Glucose, POC 174 70 - 199 mg/dL POC Performer [id number] [facility] Blood 09/02/2024 5:20 PM CDT 09/02/2024 5:20 PM CDT us Zaina Murillo MD LAB POCT ORDERABLES - DEVICE Final Result Performing Organization Address [facility] de Phone Number JOSE R [facility]IRE[facility] [address] [facility] [employer] [place] [address] * POCT glucose (09/02/2024 1:18 PM CDT) Pathologist [facility] Glucose, POC 170 70 - 199 mg/dL POC Performer [id number] JOSE R Blood 09/02/2024 1:18 PM CDT 09/02/2024 1:18 PM CDT Zaina Murillo MD LAB POCT ORDERABLES - DEVICE Final Result Performing Organization Address [facility] de Phone Number JOSE R [address] [facility] [employer] [place] [address] * aPTT (09/02/2024 11:22 AM CDT) [facility] aPTT 33 28 - 38 sec Comment: Interpretive Data Heparin therapeutic range: 66.0 - 100.0 seconds. Range based on correlation with therapeutic heparin activity range of 0.3 - 0.7 Units/mL. Current interpretive data was last revised on 2022. Blood 09/02/2024 11:2 2 AM CDT 09/02/2024 11:30 AM CDT Zaina Murillo MD LAB BLOOD ORDERABLES Final Result Performing Organization Address [facility] de Phone Number JOSE R RAMIRE[facility] [address] [facility] [place] [address] * Protime-INR (09/02/2024 11:22 AM CDT) Pathologist [facility] PT 12.8 9.7 - 13.0 sec INR 1.18 0.90 - 1.20 JOSE R Comment: Interpretive data Oral anticoagulant therapeutic ranges: [...] Final Result Performing Organization Address City/State/ZIP Co wy Phone Number [facility] [address] [facility] Department of Laboratories [place], [place] [id number] * TRANSESOPHAGEAL ECHO (YUVAL) W DOPPLER/CF WO CONTRAST (09/02/2024 10:50 AM CDT) BSA 1.55 m2 CONS SCIMAGE Anatomical Region Laterality Modality Ultrasound Narrative 09/02/2024 10:54 AM CDT Table formatting from the original result was not included. PROCEDURE Transesophageal ECHO for left atrial appendage closure INDICATION Atrial fibrillation and [id number] score > 2 with hx of recurrent bleeding and couldn't tolerate usp anticoagulation PROCEDURE DETAILS Patient underwent general anesthesia [...] * POCT glucose (09/02/2024 10:26 AM CDT) Glucose, POC 114 70 - 199 mg/dL POC Performer [id number] JOSE R CH Blood 09/02/2024 10:2 6 AM CDT 09/02/2024 10:26 AM CDT Zaina Murillo MD LAB POCT ORDERABLES - DEVICE Final Result Performing Organization Address [facility] de Phone Number JOSE R [facility] [address] Department [place] [address] * (ABNORMAL) POC Activated Clotting Time, High Range (09/02/2024 10:21 AM CDT) ACT 315(H) 87 - 138 sec POC Performer [id number] JOSE R Blood 09/02/2024 10:2 1 AM CDT 09/02/2024 10:21 AM CDT Zaina Murillo MD LAB BLOOD ORDERABLES Final Result Performing Organization Address [facility] de Phone Number JOSE R RAMIRE[facility] [address] Department [place] [employer] [place] [address] * [place] AN ELECTIVE ENDOTRACHEAL AIRWAY (09/02/2024 10:00 AM [...] 8:10 AM CDT 09/02/2024 8:10 AM CDT us Zaina Murillo MD LAB BLOOD ORDERABLES Final Result Performing Organization Address [facility] Co de Phone Number JOSE R JAMES [address] Department [place] [place] [address] CH * Potassium, whole blood (09/02/2024 8:06 [...] 8:06 AM CDT 09/02/2024 8:08 AM CDT us Rola Patel NP LAB BLOOD ORDERABLES Final Res ult Performing Organization Address [facility] Co de Phone Number JOSE R JAMES [address] Department [place] [place] [address] * POCT glucose (09/02/2024 7:31 AM CDT) Glucose, POC 134 70 - 199 mg/dL POC Performer [id number] JOSE R Blood 09/02/2024 7:31 AM CDT 09/02/2024 7:31 AM CDT Zaina Murillo MD LAB POCT ORDERABLES - DEVICE Final Result Performing Organization Address [facility] Co de Phone Number JOSE R RAMIREZ [address] [facility] [employer] [place] [address] * Prepare RBC: 2 Units (09/02/2024 7:23 AM CDT) Pathologist [facility] Product code [id number] Unit Number [id number] 2-V [facility] Product Blood Type APOS [facility] Dispense Status RETURNED [facility] Product code [id number] [facility] Unit Number [id number] 1-D [facility] Product Blood Type APOS [facility] CH Dispense Status RETURNED [facility] Blood 09/02/2024 7:23 AM CDT Narrative [facility] - 09/03/2024 12:08 AM CDT Specify Procedure:->LAAO Are special requirements needed? (All products are leukoreduced and CMV- safe)- >No Date required:-[id number] LRRBC # of [id number] Reasons:-Hold for procedure (specify procedure)} Zaina Murillo MD BLOOD BANK PRODUCT O RDERABLES Final Result Performing Organization Address [facility] Co de Phone Number JOSE R RAMIREZ [address] [place] [address] * ECG 12 lead (08/26/2024 1:24 PM CDT) 08/26/2024 1:24 PM CDT Narrative [facility] - 08/26/2024 8:14 PM CDT Vent Rate: 68 bpm RR Interval: 882 msec WV Interval: 187 msec QRS Duration: 76 msec QT Interval: 369 msec QTC Interval: 385 msec P-R-T Central: 62 - 31 - 57 degrees IMPRESSION: SINUS RHYTHM NORMAL ECG Electronically Signed By: Dr. Zaina Murillo [facility] Zaina Murillo MD ECG ORDERABLES Domitila l Result [facility] * (ABNORMAL) eGFR (08/26/2024 1:07 PM CDT) [...] BLOOD ORDERABLES Final Result [facility]IRE[facility] [address] Department [place] [address] * (ABNORMAL) Differential, auto (08/26/2024 1:07 PM CDT) Neutrophil abs 7.58(H) 1.50 - 6.50 K/cumm Imm gran abs 0.03 0.00 - 0.10 K/cumm [facility] Lymphocyte abs 1.12 0.80 - 3.30 K/cumm [facility] Monocyte abs 0.54 0.20 - 0.80 K/cumm [facility] Eosinophil abs 0.43 0.00 - 0.50 K/cumm [facility] Basophil abs 0.04 0.00 - 0.10 K/cumm [facility] Neutrophil pct 77.9 % [facility] Comment: Interpretive Data Percent cell count reference ranges are not reported, since discordance with absolute values may lead to misinterpretation of CBC data. Current Interpretive Data was last revised on 2017. Imm gran pct 0.3 % [facility] Comment: Interpretive Data Percent cell count reference ranges are not reported, since discordance with absolute values may lead to misinterpretation of CBC data. Current Interpretive Data was last revised on 2017. Lymphocyte pct 11.5 % [facility] Comment: Interpretive Data Percent cell count reference ranges are not reported, since discordance with absolute values may lead to misinterpretation of CBC data. Current Interpretive Data was last revised on 2017. Monocyte pct 5.5 % [facility] Comment: Interpretive Data Percent cell count reference ranges are not reported, since discordance with absolute values may lead to misinterpretation of CBC data. Current Interpretive Data was last revised on 2017. Eosinophil pct 4.4 % [facility] Comment: Interpretive Data Percent cell count reference ranges are not reported, since discordance with absolute values may lead to misinterpretation of CBC data. Current Interpretive Data was last revised on 2017. Basophil pct 0.4 % [facility] Comment: Interpretive Data Percent cell count reference ranges are not reported, since discordance with absolute values may lead to misinterpretation of CBC data. Current Interpretive Data was last revised on 2017. Blood 08/26/2024 1:07 PM CDT 08/26/2024 1:24 PM CDT us Zaina Murillo MD LAB BLOOD ORDERABLES Final Result JOSE R [address] Department [place] [address] * (ABNORMAL) CBC with auto differential (08/26/2024 1:07 PM CDT) WBC 9.74 3.80 - 9.90 K/cumm Hgb 11.1(L) 11.9 - 15.5 g/dL [facility] Hct 35.2(L) 35.6 - 45.5 % [facility] Plt 296 150 - 400 K/cumm [facility] MPV 10.0 9.1 - 12.3 fL [facility] RBC 3.78(L) 3.90 - 5.20 M/cumm [facility] MCV 93.1 81.3 - 96.4 fL [facility] MCH 29.4 27.1 - 33.3 pg C[facility] MCHC 31.5(L) 32.3 - 35.7 g/dL [facility] RDW CV 15.6(H) 11.1 - 14.9 % [facility] RDW SD 52.9(H) 35.7 - 48.1 fL [facility] NRBC abs 0.00 0.00 - 0.01 K/cumm [facility] Blood 08/26/2024 1:07 PM CDT 08/26/2024 1:24 PM CDT Zaina Murillo MD LAB BLOOD ORDERABLES Final Result Performing Organization Address [facility] Co de Phone Number DENISECAROLINE RAMIREZ [address] [facility] [place] [address] * (ABNORMAL) aPTT (08/26/2024 1:07 [...] BLOOD ORDERABLES Final Result Performing Organization Address City/[facility] Co de Phone Number DENISECAROLINE RAMIREZ [address] [facility] [employer] [place], [place] [id number] * Protime-INR (08/26/2024 1:07 PM CDT) Pathologist [facility] PT 11.0 9.7 - 13.0 sec INR 1.02 0.90 - 1.20 JOSE R Comment: Interpretive data Oral anticoagulant therapeutic ranges: Venous thromboembolism prophylaxis or treatment: 2.0-3.0 CARDIOLOGY Standard range: 2.0-3.0 High-intensity range: 2.5-3.5 Refer to indication-specific guidelines for appropriate target ranges for prosthetic heart valve replacement. Current interpretive data was last revised on 2019. Blood 08/26/2024 1:07 PM CDT 08/26/2024 1:24 PM CDT Zaina Murillo MD LAB BLOOD ORDERABLES Final Result Performing Organization Address [facility]/ZIP Co de Phone Number JOSE R [address] [facility] [place] [address] * Type and screen (08/26/2024 1:07 PM CDT) Pathologist [facility] ABO Rh A Positive Power, indirect Negative JOSE R Blood 08/26/2024 1:07 PM CDT 08/26/2024 1:33 PM CDT Narrative [facility] - 08/26/2024 2:14 PM CDT Has the patient had Daratumumab or Isatuximab in the past 6 months?->Unknown Zaina Murillo MD LAB BLOOD BANK TEST ORDERABLES Final Result Performing Organization Address City/[facility]/ZIP Co de Phone Number JOSE R [address] Department [place] [address] * (ABNORMAL) Comprehensive metabolic panel (08/26/2024 1:07 PM CDT) Pathologist [facility] Sodium 137 135 - 145 mmol/L Potassium, pl 4.7 3.3 - 4.9 mmol/L [facility] Chloride 102 97 - 110 mmol/L [facility] CO2 25 22 - 32 mmol/L [facility] Anion gap 10 2 - 15 mmol/L [...] Murillo MD LAB BLOOD ORDERABLES Final Result [facility] [address] Department [place] [address] * TRANSESOPHAGEAL ECHO (YUVAL) W DOPPLER/CF WO [...] -No evidence of left atrial appendage clots. Zaina Murillo MD CV ECHO PROCEDURES F inal Result * POCT glucose (08/19/2024 7:47 AM CDT) Pathologist [facility] Glucose, POC 149 70 - 199 mg/dL POC Performer [phone] JOSE R RAMIREZ Blood 08/19/2024 7:47 AM CDT 08/19/2024 7:47 AM CDT Zaina Murillo MD LAB POCT ORDERABLES - DEVICE Final Result JOSE R RAMIREZ [address] Department [place] [address] * Iron profile w/ IBC (08/14/2024 11:26 AM CDT) Iron 53 45 - 160 mcg/dL [facility] TIBC 270 250 - 450 mcg/dL (calc) [facility] Iron saturation 20 16 - 45 % (calc) [facility] Blood 08/14/2024 11:2 6 AM CDT 08/14/2024 11:31 AM CDT us Cheri Calderon TALENT ACQUISITION COORDINATOR LAB BLOOD ORDERABLES Final Re sult [facility] [address] [address] * (ABNORMAL) CBC with auto differential (08/14/2024 11:26 AM CDT) WBC 12.6(H) 3.8 - 10.8 Thousand/ uL [...] Eosinophils, abs 466 15 - 500 cells/uL [facility] Basophils, abs 38 0 - 200 cells/uL [facility] Neutrophils 81.8 % [facility] Lymphocyte pct 8.9 % [facility] Monocytes 5.3 % [facility] Eosinophils 3.7 % [facility] Basophils 0.3 % [facility] Blood 08/14/2024 11:2 6 AM CDT 08/14/2024 11:31 AM CDT Cheri Calderon NP LAB BLOOD ORDERABLES Final Re sult [facility] [address] [place] [address] * Diabetic Eye Exam (08/13/2024 4:23 PM CDT) Historical Provider HEALTH MAINTENANCE Final Result * Screening Mammogram Bilateral W Rodlan (06/09/2024 11:52 AM CDT) Anatomical Region Laterality Modality Breast Bilateral Mammography Cheri Calderon NP IMG MAMMO PROCEDURES Final Re sult * (ABNORMAL) Albumin Creatinine Ratio, Urine (06/02/2024 10:33 AM ZIPPER SETTER LOCKSTITCH) Creatinine, ur 160 20 - 275 mg/dL [...] diagnostic category. Urine 06/02/2024 10:3 3 AM ZIPPER SETTER LOCKSTITCH 06/02/2024 10:33 AM ZIPPER SETTER LOCKSTITCH Narrative [facility] - 06/03/2024 6:08 AM ZIPPER SETTER LOCKSTITCH FASTING:YES FASTING: YES Cheri Calderon TALENT ACQUISITION COORDINATOR LAB URINE ORDERABLES Final Re sult Performing Organization Address [facility] Co de Phone Number [facility] [address] [address] * Hemoglobin A1c (06/02/2024 10:33 AM ZIPPER SETTER LOCKSTITCH) Hgb A1C 5.5 <5.7 % of total Hgb [facility] Comment: For the purpose of screening for the presence of diabetes: <5.7% Consistent with the absence of diabetes 5.7-6.4% Consistent with increased risk for diabetes (prediabetes) > or =6.5% Consistent with diabetes This assay result is consistent with a decreased risk of diabetes. Currently, no consensus exists regarding use of hemoglobin A1c for diagnosis of diabetes in children. According to [place] Diabetes Association (ADA) guidelines, hemoglobin A1c <7.0% represents optimal control in non- diabetic patients. Different metrics may apply to specific patient populations. Standards of Medical Care in Diabetes(ADA). Blood 06/02/2024 10:3 3 AM ZIPPER SETTER LOCKSTITCH 06/02/2024 10:33 AM ZIPPER SETTER LOCKSTITCH Narrative [facility] - 06/03/2024 6:08 AM ZIPPER SETTER LOCKSTITCH FASTING:YES FASTING: YES Cheri Calderon TALENT ACQUISITION COORDINATOR LAB BLOOD ORDERABLES Final Re sult Performing Organization Address [facility] Co de Phone Number [facility] [address] [place] [address] * (ABNORMAL) Lipid panel (06/02/2024 10:33 AM ZIPPER SETTER LOCKSTITCH) Cholesterol 129 <200 mg/dL [facility] HDL 38(L) > OR = 50 mg/dL [facility] Triglycerides 159(H) <150 mg/dL [facility] LDL 67 mg/dL (calc) [facility] Comment: Reference range: <100 Desirable range <100 mg/dL for primary prevention; <70 mg/dL for patients with CHD or diabetic patients with > or = 2 CHD risk factors. LDL-C is now calculated using the Rubi calculation, which is a validated novel method providing better accuracy than the Friedewald equation in the estimation of LDL-C. Harpreet GARCIAS et al. EVELYNE. 2013;310(19): 2563-7309 (http://education.ArtSquare/faq/EYD188) Chol/HDL ratio 3.4 <5.0 (calc) [facility] Non-HDL, (LDL+VLDL) 91 <130 mg/dL (calc) [facility] Comment: For patients with diabetes plus 1 major ASCVD risk factor, treating to a non-HDL-C goal of <100 mg/dL (LDL-C of <70 mg/dL) is considered a therapeutic option. Blood 06/02/2024 10:3 3 AM ZIPPER SETTER LOCKSTITCH 06/02/2024 10:33 AM ZIPPER SETTER LOCKSTITCH Narrative [facility] - 06/03/2024 6:08 AM ZIPPER SETTER LOCKSTITCH FASTING:YES FASTING: YES Cheri Calderon NP LAB BLOOD ORDERABLES Final Re sult [facility] Organization Address City/State/ZIP Co de Phone Number [facility] [address] [place] [address] from Last 3 Months or Most Recently Relevant to Health Maintenance Insurance [facility] MEDICARE ADVANTAGE [facility] Address: [facility] [address] [place] [address] [facility] MDCR HMO REF [facility] Address: [address] [address] [place] [address] [facility] MEDICARE ADVANTAGE [facility] Address: [address] [address] [place] [address] Advance Directives For more information, please contact: [phone] Documents on File Type Date Recorded Patient Engraved Roller Inspector Expl anation ADVANCE DIRECTIVE 09/02/2024 8:07 AM Power of Credit Risk Analyst-Medical Care Teams Kayaking Instructor Relationship Specialty Start Date End Date Cheri Calderon NP [address] [facility] [address] [place] [address] PCP - General Internal Medicine 05/11/24
--- OUTSIDE RECORDS SUMMARY | 2024-10-15 02:38 | XMS_ITS | Clinical Summary ---
Author Organization [facility] Address [address] [place] [address] Care Team Providers Care Insurance Account Specialist Name Role Phone Karrie Phillips MD Primary Care Provider [phone] Source Comments [facility],non-owned Affiliates and Associated Physician Practices is amultiple site organization consisting of ambulatory clinics and hospital sitesin [place], [place], [place] and [place]. This disclosure is being madepursuant to the Care Everywhere program and may not contain all informatio navailable regarding this patient. Last updated 17.[facility] Allergies Active Allergy Reactions Criticality Noted Date Comments Cyclobenzaprine 12/09/2009 Eggs 12/09/2009 Fluoxetine 12/09/2009 Latex 12/09/2009 Naproxen 12/09/2009 Other 12/09/2009 demeral Sulfa Antibiotics Urticaria Medium 05/27/2022 Sulfamethoxazole W-Trimethoprim 11/30 Bethanechol Chloride 12/09/2009 Medications * Be aware that medications may not be up to date on this document. Alwaysverify current medications with the patient. acetaminophen (Tylenol) 325 MG tablet Take 2 (two) tablets by mouth every 6 hours as needed Maximum allowable Acetaminophen amount = 4 Grams (4000 mg) / 24 hours. 2 Active saline nasal spray ([place]; Baby [place]) 0.65 % nasal spray [place] 1 (one) spray into each nostril as needed for Dry Nose 15 mL 11/21/202 2 Active artificial tears ophthalmic solution Instill 1 (one) drop into both eyes every 4 hours as needed 4 mL 2 Active pantoprazole EC (Protonix) 40 MG tablet Take 1 (one) tablet by mouth once daily 2 Active carvedilol (Coreg) 6.25 MG tablet Take 1 (one) tablet by mouth 2 times daily Active latanoprost (Xalatan) 0.005 % ophthalmic solution 2 Active buPROPion SR 12hr (Wellbutrin-SR ) 100 MG tablet Take 1 (one) tablet by mouth 2 times daily Active lisinopril (Prinivil; Zestril) 20 MG tablet Take 1 (one) tablet by mouth once daily Active meclizine (Antivert) 25 MG tablet meclizine 25 mg tablet 1 po tid prn 2 Active pravastatin (Pravachol) 40 MG tablet pravastatin 40 mg tablet TAKE 1 TABLET BY MOUTH DAILY Active gabapentin (Neurontin) 300 MG capsule Take 1 (one) capsule by mouth 3 times daily 30 capsule 3 3 Active QUE[facility]apine (SEROquel) 100 MG tablet Take 1 (one) tablet by mouth every evening 3 Active vitamin D3 (Cholecalcifer ol) 10 MCG (400 UNIT) tablet Take 2 (two) tablets by mouth once daily 3 Active escitalopram (Lexapro) 20 MG tablet Take 0.5 (one-half) tablet by mouth once daily 3 Active ondansetron, disintegrating , (Zofran ODT) 4 MG tablet Take 1 (one) tablet by mouth every 6 hours as needed for Nausea/Vomiting Allow tablet to dissolve on the tongue 12 tablet 3 Active furosemide (Lasix) 20 MG tablet Take 1 (one) tablet by mouth every 2 days Active citalopram (CeleXA) 40 MG tablet 1 tablet Orally Once a day Active calcitriol (Rocaltrol) 0.25 MCG capsule 3 Active Active Problems Problem Noted Date Diagnosed [...] Date Resolved Date Pneumonia 12/07/2021 04/10/2022 Immunizations Immunization Administration Dates Next Due COVID JORJE PRIMARY [...] and heating? Not hard at all 06/04/2022 [facility] [place] [facility] Occupat ional Health - Occupational Stress [...] in a detention (including now)? No 06/04/2022 Comments No Sex and Gender Information Value Date Recorded Sex Assigned at Not on file Legal Sex Female 9:13 AM BOOK RETAILER Gender Identity Not on file Sexual Orientation [...] lb 3.2 oz) 06/04/2023 2:02 P M BOOK RETAILER Height 154.9 cm (5' 1) 12/04/2022 2:47 PM CDT Body Mass Index [...] exists COVID-19 VACCINE ( season) 2023 06/08/2020 DIABETES RETINOPATHY SCREENING 02/17/2024 02/16/2022, 02/15/2022 DEPRESSION SCREENING 04/01/2024 DIABETES - URINE PROTEIN SCREENING 04/01/2024 MEDICARE AWV CALENDAR YEAR 2024 INFLUENZA VACCINE (#1) 2024 , 12/08/2019, 01/25/2019, Additional history exists ZOSTER VACCINE Completed 03/18/2019, 01/12/2019 PNEUMOCOCCAL VACCINE [...] complete this topic MENINGOCOCCAL (Group B) VACCINE SHARED DECISION-MAKING Aged Out No longer eligible based on patient's age to complete this topic MENINGOCOCCAL GROUPS A/C/Y/W VACCINE Aged Out No longer eligible based on patient's age to complete this topic Medical Devices Implanted Type Area Sports Activities Foul Judge Device Identifier Shelf Expiration Date Model / Serial / Lot Jean Bone Void 10ml Dbm Grftn Algrf Ptty Implanted:Qty: 1 on 06/04/2022 by Deon Taylor MD at [facility] N/A: Spine Med[employer] Inc 05/04/2025 [id number] / / [id number] 90mm Rods Implanted:Qty: 2 on 06/04/2022 by Deon Taylor MD at [facility] N/A: Spine Synthes Spine [id number] / / Jean Bone Void 10ml Dbm Grftn Algrf Ptty Implanted:Qty: 1 on 06/04/2022 by Deon Taylor MD at [facility] N/A: Spine [employer] Inc 05/04/2025 [id number] / / [id number] Graft Bone Canc 4-9.5mm 15cc Frzdr Chp Implanted:Qty: 1 on 06/04/2022 by Deon Taylor MD at [facility] N/A: Spine [employer] 02/26/2027 [id number] / / [id number] Graft Bone Canc 4-9.5mm 30cc Algrf Frzdr Implanted:Qty: 1 on 06/04/2022 by Deon Taylor MD at [facility] N/A: Spine [employer] 12/27/2025 [id number] / / [id number] 3.5 X 14mm Screw Implanted:Qty: 4 on 06/04/2022 by Deon Taylor MD at [facility] N/A: Spine Synthes Spine [id number] / / 4.0x 20mm Screw Implanted:Qty: 2 on 06/04/2022 by Deon Taylor MD at [facility] N/A: Spine [employer] Spine [id number] / / 5.0 X 24mm Screw Implanted:Qty: 2 on 06/04/2022 by Deon Taylor MD at [facility] N/A: Spine [employer]ynthe[employer] Spine [id number] / / 4.5 X 26mm Screw Implanted:Qty: 2 on 06/04/2022 by Deon Taylor MD at [facility] N/A: Spine [employer]ynthes Spine [id number] / / Screw Caps Implanted:Qty: 10 on 06/04/2022 by Deon Taylor MD at [facility] N/A: Spine [employer]ynthes Spine [id number] / / Procedures Procedure Name Priority Date/Time Associated Diagnosis Comments BASIC METABOLIC PANEL (CALCIUM TOTAL) AM Draw 06/23/2022 3:06 AM CDT Coffee ground emesis HEMOGLOBIN A1C Routine 06/06/2022 3:07 AM BOOK RETAILER from Last 3 Months or Most Recently Relevant to Health Maintenance Results * (ABNORMAL) BASIC METABOLIC PANEL (CALCIUM TOTAL) (06/23/2022 3:06 AM CDT) BUN 10 7 - 26 mg/dL 06/23/2022 4:38 AM [facility] Creatinine 1.09(H) 0.56 - 0.96 mg/dL 06/23/2022 4:38 AM [facility] Sodium 131(L) 136 - 145 mmol/L 06/23/2022 4:38 AM [facility] Potassium 4.2 3.5 - 4.5 mmol/L 06/23/2022 4:38 AM [facility] Chloride 100 98 - 107 mmol/L 06/23/2022 4:38 AM [facility] CO2 22 22 - 29 mmol/L 06/23/2022 4:38 AM [facility] Glucose 111 70 - 115 mg/dL 06/23/2022 4:38 AM [facility] Calcium 8.2(L) 8.4 - 10.2 mg/dL 06/23/2022 4:38 AM [facility] Anion Gap 13 8 - 18 06/23/2022 4:38 AM [facility] BUN/Creatinine Ratio 9 7 - 23 06/23/2022 4:38 AM [facility] Osmolality Calculated 272 270 - 300 mOsm/kg 06/23/2022 4:38 AM [facility] eGFR by CKD-EPI 54(L) >=90 mL/min/1.7 3 m2 06/23/2022 4:38 AM [facility] Blood BLOOD SPECIMEN / Unknown Lab Venipuncture / Unknown 06/23/2022 3:06 AM T 06/23/2022 4:03 AM [facility] Anabell Hernandez PA-C LAB - CHEMISTRY ORDERABLES Final Result [facility] [address] [place] [address], [facility] [phone] * HEMOGLOBIN A1C (06/06/2022 3:07 AM [facility]) Hemoglobin A1c 5.3 <=5.6 % 06/06/2022 3:38 PM [facility] Estimated Average Glucose 105 mg/dL 06/06/2022 3:38 PM BOOK RETAILER [facility] Comment: HbA1c Interpretation: Normal : < 5.7% Pre-diabetes: 5.7-6.4% Diabetes: Equal to or greater than 6.5% Test results diagnostic of diabetes should be repeated for confirmation. Treatment target values recommended by ADA and other clinical organizations should be used to evaluate metabolic control in patients. Reference: [place] Diabetes Association, Standards of Care in Diabetes -2020 In patients 70 years and older consider HbA1c target range of 7.0-7.5% (Reference: Oswaldo Liz et al. JAMDA. 2012) The Sebia assay for the measurement of HbA1c is a National Glycohemoglobin Standardization Program (NGSP) certified method. Blood BLOOD SPECIMEN / Unknown Lab Venipuncture / Unknown 06/06/2022 3:07 AM BOOK RETAILER 06/06/2022 3:28 AM BOOK RETAILER Ama Gonzalez MD LAB - CHEMISTRY ORDERABL ES Final Result [address] [address], [facility] [phone] from Last 3 Months or Most Recently Relevant to Health Maintenance Insurance [facility] MANAGED MEDICARE ADV [facility] MANAGED MEDICARE ADV Advance Directives * Full Code (Latest Code Status on File) Date Activated Date Inactivated Comments 06/20/2022 6:09 PM 06/23/2022 5:59 PM * Full Code Date Activated Date Inactivated Comments 06/04/2022 1:16 PM 06/08/2022 11:04 PM * Full Code Date Activated Date Inactivated Comments 02/15/2022 5:44 AM 02/19/2022 3:38 PM Care Teams Insurance Account Specialist Relationship Specialty Start Date End Date Karrie Phillips MD [address] [place] [address] PCP - General 03/13/22
--- NOTE | 2024-10-15 11:46 | WPDANESEPPF ---
Anes - Initial Pre Proc Eval Procedure: Operation Date: 10/15/24 13:00 Proposed Procedures p Trans Esophageal Echo - Piero Stevenson MD Date/Time: 10/15/24 11:46 Surgeon: Piero Stevenson MD Pre Op Diagnosis: post llao Patient Data Age: 74 Gender: F Height: 1.5 m Weight: 58 kg Allergies Allergy/AdvReac Type Severity Reaction Status Date / Time adhesive tape Allergy Mild Unknown Verified 10/15/24 12:04 Influenza Virus Vaccines Allergy Mild Hives Verified 10/15/24 12:04 smallpox vaccine,live Allergy Mild Hives Verified 10/15/24 12:04 Sulfa (Sulfonamide Allergy Mild HIVES Verified 10/15/24 12:04 Antibiotics) sulfamethoxazole Allergy Mild HIVES Verified 10/15/24 12:04 cyclobenzaprine Allergy Unknown Unknown Verified 10/15/24 12:04 fluoxetine Allergy Unknown Unknown Verified 10/15/24 12:04 latex Allergy Unknown Unknown Verified 10/15/24 12:04 meperidine Allergy Unknown Unknown Verified 10/15/24 12:04 naproxen Allergy Unknown Unknown Verified 10/15/24 12:04 trimethoprim Allergy Unknown Unknown Verified 10/15/24 12:04 bethanechol AdvReac Mild INTESTINAL Verified 10/15/24 12:04 PROBLEMS EGGS Allergy Unknown Unknown Uncoded 10/15/24 12:04 SEE NSG NOTES Allergy Unknown Unknown Uncoded 10/15/24 12:04 Home Medications ?Medication ?Instructions ?Recorded ?Confirmed ?Type bupropion HCl 100 mg tablet 100 mg PO BID 12/24/20 10/14/24 History cholecalciferol (vitamin D3) 50 50 mcg PO BID 12/24/20 10/14/24 History mcg (2,000 unit) tablet (Vitamin D3) latanoprost 0.005 % eye drops 1 drp EACH EYE DAILY 12/24/20 10/14/24 History (Xalatan) meclizine 25 mg tablet 25 mg PO TID PRN dizziness #14 tabs 12/24/20 10/14/24 Rx pantoprazole 40 mg tablet,delayed 40 mg PO QAM 12/24/20 10/14/24 History release (Protonix) pravastatin 40 mg tablet 40 mg PO DAILY 12/24/20 10/14/24 History acetaminophen 325 mg tablet (Mapap 650 mg (2 x 325 mg) PO Q6H PRN 06/15/22 10/14/24 Rx (acetaminophen)) Mild Pain (1-3) Or Fever #30 tabs carvedilol 12.5 mg tablet (Coreg) 12.5 mg PO Q12HR #60 tabs 06/15/22 10/14/24 Rx famotidine 20 mg tablet 20 mg PO Q12HR #30 tabs 06/15/22 09/08/24 Rx peg [id number] 1 1 drp EACH EYE Q4H PRN Dry Eye(S) 06/15/22 10/14/24 Rx %-0.2 %-0.2 % eye drops #15 mL (Artificial Tears ([id number])) quetiapine 50 mg tablet 100 mg (2 x 50 mg) PO HS #30 tabs 06/15/22 10/14/24 Rx cetirizine 10 mg tablet (Zyrtec) 10 mg PO DAILY PRN allergy symptoms 08/20/23 10/14/24 History amlodipine 5 mg tablet (Norvasc) 5 mg PO QAM #90 tabs 04/19/24 10/14/24 Rx furosemide 20 mg tablet 20 mg PO QAM 05/11/24 10/14/24 History calcitriol 0.25 mcg capsule See Rx Instructions .Route 06/30/24 10/14/24 Rx .COMPLEX #360 caps allopurinol 100 mg tablet 100 mg PO DAILY 10/14/24 10/14/24 History clopidogrel 75 mg tablet 75 mg PO DAILY 10/14/24 10/14/24 History fluticasone propionate 50 1 spray intranasal DAILY PRN 10/14/24 10/14/24 History mcg/actuation nasal allergy symptoms spray,suspension (24 Hour Allergy Relief) mupirocin 2 % topical ointment 1 applic topical TID 10/14/24 10/14/24 History ondansetron 4 mg disintegrating 4 mg PO Q6H PRN nausea and vomiting 10/14/24 10/14/24 History tablet semaglutide 0.25 mg or 0.5 mg (2 0.5 mg subcut WEEKLY 10/14/24 10/14/24 History mg/3 mL) subcutaneous pen injector (Ozempic) sodium chloride 0.65 % nasal drops 1 drp intranasal BID PRN dry nasal 10/14/24 10/14/24 History passages tavaborole 5 % topical solution 1 applic topical DAILY 10/14/24 10/14/24 History with applicator vit C 250 mg-vit E 90 mg-zinc 40 1 tablet PO ONCE 10/14/24 10/14/24 History mg-copper 1 mg-ejbmdq-kwednl capsule (PreserVision AREDS-2) Patient hx anesthesia problems: none Family hx anesthesia problems: none Results Review: All pre-operative results and documents have been reviewed as part of the pre-operative evaluation. [facility] Past Medical History Medical History (Updated 10/15/24 @ 11:47 by Petar Mckinney DO) COPD (chronic obstructive pulmonary disease) Atrial fibrillation Diabetes type 2, controlled Restless leg syndrome Chronic kidney disease, stage IV (severe) Hyperlipidemia Vitamin D deficiency Raynaud's disease Anemia Depression Degenerative disc disease Cervical neck fusion in 2006 Arthritis Musculoskeletal disorder Bilateral rotator cuff surgery, bilateral carpal tunnel, arthritis, left thumb subluxed Ferrell's esophagus Pneumonia Hypertension Heart murmur Migraines Last migraine 2006 Glaucoma Cataracts, bilateral Surgical History Surgical History History of cervical spinal surgery History of orthopedic surgery Lower back disc removal 1986, repair of spinal leak 1987 History of appendectomy History of tonsillectomy Family History Family History Sibling Family history of thyroid disease Family history of obesity Family history of osteoporosis Family history of migraine headaches Hypertension Family history of elevated blood lipids Family history of alcoholism Family history of diabetes mellitus in first degree relative Family history of coronary artery disease Father Family history of osteoporosis Family history of lung cancer Mother Family history of osteoarthritis Family history of malignant melanoma Family history of atrial fibrillation Social History Social History Social History: Surrogate medical decision maker: Code status: Full code. Smoking status: Never smoker Second hand tobacco smoke exposure: No Alcohol intake: never Substance use: never Substance use type: does not use Other substance usage details: cbd gummies without thc Do You Feel Safe in your Home?: Yes Lack of Transportation: No Lack of Food: Never True Current Housing: I Have Housing Concerned About Future Housing: No Difficulty Paying Gas/Electric Bills: No Difficulty Paying for Meds: No Currently Unemployed: No Education: Associate Degree Difficulty w/ Childcare or Family Care: No Living arrangements: with family Spiritual care concerns: No Anes - Eval Final PreProcedure Day of Procedure 10/15/24 11:46 Patient weight: overweight Heart: regular rate and rhythm Lungs: clear to auscultation Airway: Mallampati scale class II Neurological: alert and oriented Last oral intake: >/= 8 hours ASA classification: III Emergent: no Anesthetic plan: proceed Anesthesia type and monitoring: general GIVS and standard monitoring Results Review: All pre-operative results and documents have been reviewed as part of the pre-operative evaluation. Informed Consent: The patient's anesthetic plan and its attendant risks and benefits were discussed with the patient/family/POA. Questions were solicited and answers provided to the satisfaction of the patient/family/POA.
[2024-10-15 12:06] VITALS: BP 135/73; PULSE 73; RESP 16; TEMP 36.2; O2SAT 99; BMI 25.2
--- NOTE | 2024-10-15 12:38 | WPDHPUPDATE1 ---
History and Physical Update Update Date/Time: 10/15/24 12:38 History and Physical has been reviewed, including an updated exam of the patient. There are NO changes in the patient's condition. Risks, benefits, and alternatives have been discussed and questions answered. Patient agrees to proceed with procedure.
--- NOTE | 2024-10-15 13:00 | ECHO_ITS ---
Patient Info Name: Kandace Cole Age: 74 years : 1950 Gender: Female Ht: 59 in Wt: 127 lbs BSA: 1.56 m2 Technical Quality: Good Exam Date: 10/15/2024 12:46 PM Patient Status: O Admit Date: 10/15/2024 Exam Type: CA echo transesophageal Complete two-dimensional, color flow and Doppler transesophageal study is performed. Summer Nanny: Janee Tillman Attending Provider: Piero Stevenson Summary 1. There is an Amulet device that is well seated in the left atrial appendage without any thrombus or cheng-device leak. 2. The left ventricle is normal in size and systolic function. 3. The right ventricle is normal in size and systolic function. 4. There is moderate amount of atherosclerotic plaque in the visualized portions of the aorta. Medications The posterior pharynx was sprayed with Cetacaine spray. Sedation was provided by anesthesia team. Procedure Details The patient arrived in a fasting state after obtaining informed consent. The transesophageal probe was passed into the posterior pharynx, mid-esophagus, and distal esophagus. Imaging was performed at multiple levels. The patient tolerated the procedure well and there were no complications. The patient was transferred out of the examination area in satisfactory condition. Left Ventricle The left ventricle is normal in size and systolic function. Right Ventricle The right ventricle is normal in size and systolic function. Left Atria The left atrium is dilated. Right Atria The right atrium is normal size. Atrial Septum The atrial septum is intact. Atrial Appendage There is an Amulet device that is well seated in the left atrial appendage without any thrombus or cheng-device leak. Aortic Valve The aortic valve is trileaflet and opens well. There is no aortic regurgitation. Pulmonic Valve The pulmonic valve is grossly normal. Mitral Valve The mitral valve opens well. There is trace mitral regurgitation. Tricuspid Valve The tricuspid valve is normal. Pericardium/Pleural Pericardium is normal in appearance with no evidence for significant pericardial effusion. Aorta There is moderate amount of atherosclerotic plaque in the visualized portions of the aorta. Report Signatures
[2024-10-15 13:15] VITALS: BP 120/61; PULSE 69; RESP 16; O2SAT 96
[2024-10-15 13:30] VITALS: BP 140/55; PULSE 68; RESP 18; O2SAT 92
[2024-10-15 13:45] VITALS: BP 151/59; PULSE 67; RESP 14; O2SAT 91
[2024-10-15 14:00] VITALS: BP 150/59; PULSE 67; RESP 14; O2SAT 91
== END 2024-10-15 14:16 | disposition home or self-care (01) ==
PROVIDERS: PCP Nurse Practitioner Family; Visit Provider Internal Medicine
PROC: (CPT 93312; principal; 2024-10-15 13:00)
DX: Z09 Encounter for follow-up examination after completed treatment for conditions other than malignant neoplasm (principal); Z95.818 Presence of other cardiac implants and grafts; I25.10 Atherosclerotic heart disease of native coronary artery without angina pectoris; I48.91 Unspecified atrial fibrillation; Z87.19 Personal history of other diseases of the digestive system
CPT/HCPCS: 93312; 93320; 93325; J7040

== ENCOUNTER 2025-01-15 07:46 | Observation (INO) | payer MEDICARE, SELFPAY ==
--- OUTSIDE RECORDS SUMMARY | 2007-04-18 04:53 | XMS_ITS | Continuity of Care Document ---
Author Organization [facility] Address [address] [place] [address] Phone Care Team Providers Care Night Coordinator Name Role Phone Daniel Corrales MD Unavailable Unavailable Procedures Procedure Date Special Reports Or Forms Miscellaneous Advance Directives Directive Yes / No Effective Date File Name No Information Encounters Encounter Description Practice Location Reason(s) For Visit Diagnoses Date Provider Providers Copied on Encounter [facility], [address] [place], [place] [address], [place], [place], [id number], tel:[phone] [facility] No Information [address], [id number], [place]. tel:[phone] [facility], [address] [place], [place] [address], [place], [place], [id number], tel:[phone] [facility] No Information [address] [facility] [place], [id number], [place]. tel:[phone] Family History Family Member Type Diagnosis Age At Onset No Information Payers Payer name Insurance type Covered alliance party ID Authoriza tion(s) No Information Social History Type Description Quantity Date Captured Comments Sex Female Smoking Status No Information Chief Complaint And Reason For Visit No Information Reason For Referral Reason For Referral No Information History Of Present Illness Encounter Date Complaint History Of Prese nt Illness No Information Functional Status Date Functional Assessmen t No Information Instructions Date Instruction Additional Infor mation No Information Assessments Type Assessment Date No Information Patient Care Teams Name Effective Dates (start - stop) Status Members No Information
[2025-01-15] VITALS (12 sets, daily range): BP systolic 104–159; BP diastolic 51–75; PULSE 79–86; RESP 8–18; TEMP 36.3–37.2; O2SAT 96–100
--- NOTE | ~2025-01-15 | CT_ITS ---
EXAMINATION: CT pelvis wo con COMPARISON: None HISTORY: left hip pain, neg XR TECHNIQUE: Axial images were obtained without IV contrast. Sagittal, coronal reconstruction images were obtained from the axial views. CT scan performed using dose optimization techniques including the following automated exposure control; adjustment of mA and/or kV; use of iterative reconstruction technique. Automatic exposure control was used to reduce radiation dose. Permanent radiation dose record is archived to PACS. FINDINGS: Moderate degenerative changes of the visualized lumbar spine and the sacroiliac joints bilaterally. Moderate degenerative changes of the symphysis pubis. Minimal degenerative changes of the acetabular femoral joints bilaterally. There is a nondisplaced fracture of the left inferior pubic ramus at its junction with the symphysis pubis extending into the superior pubic ramus at its junction with the symphysis pubis with surrounding posttraumatic soft tissue changes. No additional fracture or dislocation is identified. There is a remote fracture of the coccyx. No free fluid. Visualized bowel and mesentery unremarkable. No lymphadenopathy or aneurysm identified. Post hysterectomy. There is no adnexal mass. Within the inferior left retroperitoneum extending into the space of Retzius there is small amount of hemorrhage identified. IMPRESSION: Fracture of the left superior and inferior pubic ramus detailed above with extension into the symphysis pubis. Associated posttraumatic hemorrhage. Follow-up is suggested to assess Reviewed, dictated and finalized at location P. IMPRESSION: Fracture of the left superior and inferior pubic ramus detailed abo ve with extension into the symphysis pubis. Associated posttraumatic hemorrhage . Follow-up is suggested to assess
--- NOTE | ~2025-01-15 | XR_ITS ---
EXAMINATION: XR hip LT 2V w AP pelvis, 01/15/2025 8:10 CDT HISTORY: left hip pain, fall COMPARISON: No comparisons available. Findings: No acute fracture or malalignment. Moderate degenerative changes Soft tissues unremarkable. Impression: No acute fracture or malalignment. Reviewed, dictated and finalized at location P. Impression: No acute fracture or malalignment.
--- NOTE | ~2025-01-15 | XR_ITS ---
EXAMINATION: XR shoulder LT min 2V, 01/15/2025 8:10 CDT HISTORY: shoulder injury, fall COMPARISON: No comparisons available. Findings: Postsurgical changes, no acute fracture identified. Severe degenerative changes with underlying rotator cuff injury suspected Soft tissues unremarkable. Impression: No acute fracture or malalignment. Reviewed, dictated and finalized at location P. Impression: No acute fracture or malalignment.
--- NOTE | ~2025-01-15 | CT_ITS ---
EXAMINATION: CT brain wo burak, 01/15/2025 8:00 CDT HISTORY: trauma COMPARISON: No comparisons available. Technique: Axial images obtained of the brain without contrast. One or more of the following dose reduction techniques were used: automated exposure control, adjustment of the mA and/or kV according to patient size, use of iterative reconstruction technique. Findings: No acute infarct or parenchymal hemorrhage. No abnormal mass or mass effect. No midline shift. No extra-axial fluid collections. No hydrocephalus. Mastoid air cells unremarkable. Severe left chronic appearing maxillary sinusitis with underlying polyp formation suspected No acute fracture. No significant facial or scalp soft tissue swelling evident. No radiopaque foreign body is seen. Impression: 1.No acute intracranial abnormality. Reviewed, dictated and finalized at location P. Impression: 1.No acute intracranial abnormality.
--- NOTE | ~2025-01-15 | CT_ITS ---
EXAMINATION: CT cervical spine wo con DATE: 01/15/2025 08:11 INDICATION: Trauma TECHNIQUE: Computed tomography (CT) of the cervical spine was performed without intravenous contrast. Automated exposure control and iterative reconstruction technique were employed. The dose-length product was 202.67 mGy-cm. COMPARISON: 02/14/2022 FINDINGS: Unchanged 3 mm anterolisthesis C3 on C4. Severe osteoarthritis at the atlantoaxial articulation with some calcite pannus and chronic erosion at the posterior base of the dens. Interval C5 and C6 laminectomies and instrumented C4-T2 posterior spinal fusion with bilateral vertical tammy and lateral mass/pe dicle screw fixation at each level excepting C6. Unchanged fusion without instrumentation across the bilateral C3-C4 facet joints. There is C3-C7 anterior spinal fusion with interbody fusion devices at C4-C5 and C5-C6. The solid osseous fusion at C5-C6 is new since the prior study. Unfused vertebral body heights are normal. Mild disc height loss at C2-C3, T1-T2 and T2-T3. Severe disc height loss and likely developing fusion at C7-T1. No acute fracture. There is hypertrophic posterior endplate osteophytes and some heterotopic ossification along the posterior longitudinal ligament extending from C3-C4 through C7-T1 which contributes to mild central canal stenosis at C3-C4, C6-C7 and C7-T1 with intervening posterior decompression at C4-C5 and C5-C6. There is moderate neural foraminal stenosis on the bilaterally at C3-C4 and C5-C6 and mild neural from stenosis at many of the remaining cervical and upper thoracic neural foramina. Atherosclerotic calcifications of the bilateral carotid bulbs. Cervical soft tissues are otherwise unremarkable. Visualized apices of the lungs are clear. IMPRESSION: 1. Severe cervical spondylosis with C5 and C6 laminectomies and C3-C7 anterior and C3-T2 posterior spinal fusion, portions of which are instrumented. No acute osseous abnormality. Reviewed, dictated and finalized at location A.
--- NOTE | 2025-01-15 07:58 | ECG_ITS ---
Test Date: 2025-01-15 08:36:49 Measurements Intervals [place] Rate: 81 P: 66 TX: 201 QRS: 45 QRSD: 82 T: 57 QT: 364 QTc: 423 Interpretive Statements SINUS RHYTHM POSSIBLE RIGHT VENTRICULAR CONDUCTION DELAY BASELINE ARTIFACT- I, III, AVL BORDERLINE ECG Compared to ECG 04/13/2024 18:49:46 Atrial fibrillation no longer present Electronically Signed On 01-15-2025 10:14:23 CDT by David Nash D.O.
--- NOTE | 2025-01-15 08:00 | ED.GENADULT ---
HPI - General Adult General Chief complaint: Fall Stated complaint: fall last night Time Seen by Provider: 01/15/25 07:47 History of Present Illness HPI narrative: 74-year-old female presents to the emergency department for evaluation for left shoulder pain left head injury and left hip pain after having a ground level fall. Patient reports she was walking her slippers and tripped and landed on her left side. Patient is unsure if she had any loss consciousness. Patient reports she was able to ambulate last night get up the stairs but had worsening symptoms this morning. Patient does live at home and does have family to help care for her. Related Data Home Medications ?Medication ?Instructions ?Recorded ?Confirmed ?Last Taken ?Type bupropion HCl 100 mg tablet 100 mg PO BID 12/24/20 01/15/25 01/14/25 History cholecalciferol (vitamin D3) 50 50 mcg PO BID 12/24/20 01/15/25 01/14/25 History mcg (2,000 unit) tablet (Vitamin D3) latanoprost 0.005 % eye drops 1 drp EACH EYE DAILY 12/24/20 01/15/25 01/14/25 History (Xalatan) pantoprazole 40 mg tablet,delayed 40 mg PO QAM 12/24/20 01/15/25 01/14/25 History release (Protonix) pravastatin 40 mg tablet 40 mg PO DAILY 12/24/20 01/15/25 01/14/25 History cetirizine 10 mg tablet (Zyrtec) 10 mg PO DAILY PRN allergy symptoms 08/20/23 01/15/25 04/03/24 History furosemide 20 mg tablet 20 mg PO .COMPLEX 05/11/24 01/15/25 01/14/25 History allopurinol 100 mg tablet 100 mg PO DAILY 10/14/24 01/15/25 01/14/25 History clopidogrel 75 mg tablet 75 mg PO DAILY 10/14/24 01/15/25 01/14/25 History fluticasone propionate 50 1 spray intranasal DAILY PRN 10/14/24 01/15/25 Unknown History mcg/actuation nasal allergy symptoms spray,suspension (24 Hour Allergy Relief) ondansetron 4 mg disintegrating 4 mg PO Q6H PRN nausea and vomiting 10/14/24 01/15/25 Unknown History tablet semaglutide 0.25 mg or 0.5 mg (2 0.5 mg subcut WEEKLY 10/14/24 01/15/25 01/12/25 History mg/3 mL) subcutaneous pen injector (Ozempic) sodium chloride 0.65 % nasal drops 1 drp intranasal BID PRN dry nasal 10/14/24 01/15/25 Unknown History passages vit C 250 mg-vit E 90 mg-zinc 40 1 tablet PO ONCE 10/14/24 01/15/25 01/14/25 History mg-copper 1 is-nqqsxl-jugcls capsule (PreserVision AREDS-2) Allergies Allergy/AdvReac Type Severity Reaction Status Date / Time adhesive tape Allergy Mild Unknown Verified 01/15/25 07:57 Influenza Virus Vaccines Allergy Mild Hives Verified 01/15/25 07:57 Iodinated Contrast Media Allergy Mild kidney Verified 01/15/25 07:57 failure smallpox vaccine,live Allergy Mild Hives Verified 01/15/25 07:57 Sulfa (Sulfonamide Allergy Mild HIVES Verified 01/15/25 07:57 Antibiotics) sulfamethoxazole Allergy Mild HIVES Verified 01/15/25 07:57 cyclobenzaprine Allergy Unknown Unknown Verified 01/15/25 07:57 fluoxetine Allergy Unknown Unknown Verified 01/15/25 07:57 latex Allergy Unknown Unknown Verified 01/15/25 07:57 meperidine Allergy Unknown Unknown Verified 01/15/25 07:57 naproxen Allergy Unknown Unknown Verified 01/15/25 07:57 trimethoprim Allergy Unknown Unknown Verified 01/15/25 07:57 egg AdvReac Intermediate Unknown Verified 01/15/25 07:57 bethanechol AdvReac Mild INTESTINAL Verified 01/15/25 07:57 PROBLEMS SEE NSG NOTES Allergy Unknown Unknown Uncoded 10/15/24 12:04 Review of Systems Review of Systems: All systems reviewed & are unremarkable except as noted in HPI and below PMFSH Past Medical History Medical History COPD (chronic obstructive pulmonary disease) Atrial fibrillation Diabetes type 2, controlled Restless leg syndrome Chronic kidney disease, stage IV (severe) Hyperlipidemia Vitamin D deficiency Raynaud's disease Anemia Depression Degenerative disc disease Cervical neck fusion in 2006 Arthritis Musculoskeletal disorder Bilateral rotator cuff surgery, bilateral carpal tunnel, arthritis, left thumb subluxed Ferrell's esophagus Pneumonia Hypertension Heart murmur Migraines Last migraine 2007 Glaucoma Cataracts, bilateral Surgical History Surgical History History of cervical spinal surgery History of orthopedic surgery Lower back disc removal 1986, repair of spinal leak 1988 History of appendectomy History of tonsillectomy Family History Family History Sibling Family history of thyroid disease Family history of obesity Family history of osteoporosis Family history of migraine headaches Hypertension Family history of elevated blood lipids Family history of alcoholism Family history of diabetes mellitus in first degree relative Family history of coronary artery disease Father Family history of osteoporosis Family history of lung cancer Mother Family history of osteoarthritis Family history of malignant melanoma Family history of atrial fibrillation Social History Social History Social History: Surrogate medical decision maker: Code status: Full code. Smoking status: Never smoker Second hand tobacco smoke exposure: No Alcohol intake: never Substance use: never Substance use type: does not use Other substance usage details: cbd gummies without thc Do You Feel Safe in your Home?: Yes Lack of Transportation: No Lack of Food: Never True Current Housing: I Have Housing Concerned About Future Housing: No Difficulty Paying Gas/Electric Bills: No Difficulty Paying for Meds: No Currently Unemployed: No Education: Associate Degree Difficulty w/ Childcare or Family Care: No Living arrangements: with family Spiritual care concerns: No Exam Narrative: APPEARANCE: Well appearing, no pain, no distress, well-nourished. HEAD: normocephalic, contusion to left foot. EYES: PERRLA/EOMI, conjunctivae clear. NOSE: Normal no drainage EARS:TMS clear with good light reflex. THROAT: Pharynx clear, no exudate. NECK: Supple. No adenopathy, no masses. RESPIRATORY: Airway patent, respirations nonlabored. Clear to auscultation bilaterally, no rales, rhonchi, wheezing. CARDIOVASCULAR: Regular rate and rhythm without murmurs rubs or gallops. ABDOMINAL: Soft, nontender, nondistended, normal bowel sounds MUSCULOSKELETAL: Tenderness to left hip NEURO: Alert. Cranial nerves II through XII intact. Good gait. Good coordination SKIN: Bruising to left shoulder Course Vital Signs Vital signs: Vital Signs Temperature 97.3 F L 01/15/25 07:46 Pulse Rate 85 01/15/25 07:46 Respiratory Rate 18 01/15/25 07:46 Blood Pressure 159/75 H 01/15/25 07:46 Pulse Oximetry 100 01/15/25 07:46 Temperature 99.0 F 01/15/25 10:58 Pulse Rate 86 01/15/25 10:58 Respiratory Rate 18 01/15/25 10:58 Blood Pressure 104/74 01/15/25 10:58 Pulse Oximetry 100 01/15/25 10:58 Medical Decision Making MDM Narrative Medical decision making narrative: [age] old female presents to the emergency department for evaluation for left hip pain left shoulder pain left hip pain after having a ground level fall last night. Patient's head CT cervical spine CT were negative for hemorrhage or fracture. No acute abnormality and patient's shoulder x-ray. Hip x-ray was negative but due to the patient having persistent pain a CT pelvis was ordered and does show fractures of the superior inferior pubic rami with extension into the pubic symphysis. Small amount of hemorrhage was noted. Patient is neurovascular intact with normal vitals. Patient is currently afebrile no leukocytosis hemoglobin of 10.9 which is higher than her recent baseline. Patient's creatinine is similar to her baseline. Orthopedics was consulted. Patient states due to her pain she does not feel she is able to be discharged to home. PT OT will be ordered. Differential Diagnosis Differential Diagnosis: Subdermal time, subarachnoid hemorrhage, shoulder fracture, shoulder contusion, hip fracture, hip contusion, pelvic fracture Vital Signs Vital Signs: Vital Signs Temperature 97.3 F L 01/15/25 07:46 Pulse Rate 85 01/15/25 07:46 Respiratory Rate 18 01/15/25 07:46 Blood Pressure 159/75 H 01/15/25 07:46 Pulse Oximetry 100 01/15/25 07:46 Temperature 99.0 F 01/15/25 10:58 Pulse Rate 86 01/15/25 10:58 Respiratory Rate 18 01/15/25 10:58 Blood Pressure 104/74 01/15/25 10:58 Pulse Oximetry 100 01/15/25 10:58 Lab Data Lab results reviewed: Yes I reviewed the patient's lab results. 01/15/25 08:29 10/17/25 08:29 Labs: Lab Results 01/15/25 Range/Units 08:29 WBC 9.3 (4.5-10.0) K/mm3 RBC 3.51 L (4.2-5.4) M/mm3 Hgb 10.9 L D (12.0-15.0) g/dL Hct 33.3 L (37.0-47.0) % MCV 94.9 (80-100) fl MCH 31.1 (26-34) pg MCHC 32.7 (32-36) g/dl RDW 14.4 (11.5-14.5) % Plt Count 224 (150-375) k/mm3 MPV 9.5 (7.4-10.4) fl Immature Gran % (Auto) 0.5 (0-0.5) % Neut % (Auto) 78.8 H (45.5-73.1) % Lymph % (Auto) 10.7 L (18.3-44.2) % [place] % (Auto) 6.8 (2.6-8.5) % Eos % (Auto) 2.8 (0-4.4) % Baso % (Auto) 0.4 (0.2-1.2) % Lymph # (Auto) 0.99 (0.9-3.2) K/mm3 [place] # (Auto) 0.6 (0.1-0.6) K/mm3 Eos # (Auto) 0.3 (0-0.3) K/mm3 Baso # (Auto) 0.0 (0.0-0.1) K/mm3 Abs Immat Gran (auto) 0.05 H (0.00-0.031) K/mm3 Absolute Neuts (auto) 7.3 H (1.3-6.7) K/mm3 Absolute Nucleated RBC 0.000 (0.0-0.012) K/mm3 Nucleated RBC % 0.0 (0.0-0.2) % PT 13.3 (11.1-14.7) Seconds INR 1.0 APTT 25.4 (22.3-36.8) Seconds Sodium 136 L (137-145) mmol/L Potassium 4.1 (3.4-5.0) mmol/L Chloride 102 (98-107) mmol/L Carbon Dioxide 28 (22-30) mmol/L Anion Gap 6 (4-12) mmol/L BUN 29 H D (7-17) mg/dL Creatinine 1.53 H (0.7-1.0) mg/dL Estim Creat Clear Calc Not Reportable Estimated GFR 33 L (59 - ) Glucose 139 H (65-110) mg/dL Calcium 9.3 (8.4-10.2) mg/dL Total Bilirubin 0.6 (0.2-1.3) mg/dL AST 26 (14-36) U/L ALT 19 (6-35) U/L Alkaline Phosphatase 81 (38-126) U/L Total Protein 6.8 (6.3-8.2) g/dL Albumin 4.0 (3.5-5.1) g/dL Imaging Data Radiologist's impression: Impressions Head CT 01/15/25 08:19 Impression: 1.No acute intracranial abnormality. Cervical Spine CT 01/15/25 08:20 IMPRESSION: 1. Severe cervical spondylosis with C5 and C6 laminectomies and C3-C7 anterior and C3-T2 posterior spinal fusion, portions of which are instrumented. No acute osseous abnormality. Hip/Pelvis X-Ray 01/15/25 08:26 Impression: No acute fracture or malalignment. Shoulder X-Ray 01/15/25 08:27 Impression: No acute fracture or malalignment. Pelvis CT 01/15/25 08:45 IMPRESSION: Fracture of the left superior and inferior pubic ramus detailed above with extension into the symphysis pubis. Associated posttraumatic hemorrhage. Follow-up is suggested to assess ECG Data EKG #1: EKG Interpretation: normal rate, sinus rhythm, no ectopy, non-specific ST changes, normal QRS, normal QT and NL axis Discharge Plan Discharge Clinical Impression: Closed pelvic fracture, Head injury, Contusion of left shoulder Patient Disposition: Still a Patient Condition: Stable
--- NOTE | 2025-01-15 08:01 | PC.NURSE ---
patient last oral intake 01/14/2025 at around 2100
--- OUTSIDE RECORDS SUMMARY | 2025-01-15 08:32 | XMS_ITS | Encounter Summary ---
Author Organization [facility] Healthcare Address [address] [place] [address] Care Team Providers Care Harbor Engineer Name Role Phone Farhat Crocker EQUIPMENT RECORDS SUPERVISOR Primary Care Provider [phone] Cheri Calderon EQUIPMENT RECORDS SUPERVISOR Primary Care Provider [phone] Charla Bo LPN Unavailable [phone] Encounter Details Date Type Department Care Team (Late st Contact Info) Description 04/04/2024 Orders Only [facility] [place] [facility] [place] Management [address] [place] [id number] Scanning, Provider Social History Tobacco Use Types Packs/Day Years [...] on file 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 Gender Identity Not on file Sexual Orientation Not on file documented as of this encounter Plan of Treatment Not on file documented as of this encounter Procedures Procedure Name Priority Date/Time Associated Diagnosis Comments SCAN - RADIOLOGY/IMAGING 04/04/2024 documented in this encounter Results * SCAN - RADIOLOGY/IMAGING (04/04/2024) Anatomical Region Laterality Modality Other us Provider Scanning Final Result documented in this encounter Visit Diagnoses Not on filedocumented in this encounter Care Teams Harbor Engineer Relationship Specialty Start Date End Date Farhat Crocker NP [address] [place] [address] PCP - General Family Medicine 01/20/24 05/10/24 Cheri Calderon NP [address] [place] [address] PCP - General Internal Medicine 05/11/24 Charla Bo, LEANDRA [address] [place] [address] [address] [place] [address] Dip Guider Stoves 09/04/24 09/04/24 documented as of this encounter
--- OUTSIDE RECORDS SUMMARY | 2025-01-15 08:32 | XMS_ITS | Clinical Summary ---
Author Organization [facility] Address [address] [place] [address] Phone Care Team Providers Care Tape Librarian Name Role Phone Karrie Tompkins MD Primary Care Provider [phone] Allergies Active Allergy Reactions Criticality Noted Date Comments Bethanechol Unknown 12/09/2009 Cyclobenzaprine Unknown 09/07/2018 Egg-Derived Products 09/07/2018 Other reaction(s): Unknown Fluoxetine 09/07/2018 Other reaction(s): Unknown Latex 09/07/2018 Other reaction(s): Unknown Meperidine 09/07/2018 Other reaction(s): Unknown Naproxen 09/07/2018 Other reaction(s): Unknown Sulfa Antibiotics Unknown 09/07/2018 Travoprost 09/07/2018 Other reaction(s): Unknown Medications buPROPion SR (WELLBUTRIN SR) 100 MG 12 hr tablet Take 100 mg by mouth 2 (two) times a day. Active carvedilol (COREG) 6.25 MG tablet Take 6.25 mg by mouth 2 (two) times a day with meals. Active citalopram (CeleXA) 40 MG tablet Take 40 mg by mouth 1 (one) time each day. Active lisinopril (PRINIVIL,ZESTR IL) 20 MG tablet Take 20 mg by mouth 1 (one) time each day. Active pantoprazole (PROTONIX) 40 MG EC tablet Take 40 mg by mouth 1 (one) time each day before breakfast. Active pravastatin (PRAVACHOL) 40 MG tablet Take 40 mg by mouth 1 (one) time each day. Active Cholecalciferol (VITAMIN D3) 2000 units tablet Take by mouth. Activ e latanoprost (XALATAN) 0.005 % ophthalmic solution 0 Active zolpidem (AMBIEN) 5 MG tablet 1 tablet daily 9 Active furosemide (LASIX) 20 MG tablet 0 Active glimepiride (AMARYL) 1 MG tablet 0 Active QUEtiapine XR (SEROquel XR) 200 MG 24 hr tablet Take 200 mg by mouth every night 0 Active Tradjenta 5 MG tablet 0 Active Bydureon BCise 2 MG/0.85ML auto-injector 1 Active OneTouch Verio test strip 1 Active Lancets (OneTouch Delica Plus [id number]) misc 1 Active cyanocobalamin 500 MCG tablet Take 500 mcg by mouth daily Active Ciclopirox 0.77 % gel APPLY TO THE AFFECTED AND SURROUNDING AREAS OF TOENAIL AND SKIN TWICE DAILY IN THE MORNING AND EVENING 2 Active ciclopirox (PENLAC) 8 % solution APPLY TOPICALLY TO THE AFFECTED AREA OF TOENAILS ONCE DAILY PREFERABLY AT BEDTIME OR 8 HOURS BEFORE WASHING 2 Active escitalopram (LEXAPRO) 20 MG tablet Take 20 mg by mouth 1 (one) time each day 2 Active meclizine (ANTIVERT) 25 MG tablet 2 Active calcitriol (ROCALTROL) 0.25 MCG capsule TAKE ONE CAPSULE BY MOUTH 3 TIMES A WEEK ON SATURDAY, SATURDAY, SATURDAY 38 capsule 3 2 Active Active Problems Problem Noted Date Diagnosed [...] Arthritis Migraine Systemic sclerosis Chronic depression Immunizations Immunization Administration Dates Next Due DTP 07/18/2011 Fluzone [...] of Binge Drinking Not on file 11/2018 Comments Unknown Sex and Gender Information Value Date Recorded Sex Assigned at Not on file Legal Sex Female 12:52 PM MDT Gender Identity Not on file Sexual Orientation [...] 3:32 PM CDT Height 154.9 cm (5' 1) 12/27/2021 3:32 PM CDT Body Mass Index 26.07 12/27/2021 3:32 PM CDT Plan of Treatment Health Maintenance Due Date Last Done Comments Influenza Vaccine (#1) 2024 Pneumococcal PPSV23/PCV13 65 + Years / Low and Medium Risk Completed 07/01/2019, 06/30/2018 Insurance [employer] MEDICARE Care Teams Tape Librarian Relationship Specialty Start Date End Date Karrie Tompkins MD [address] [place] [id number] PCP - General 09/07/18
--- OUTSIDE RECORDS SUMMARY | 2025-01-15 08:32 | XMS_ITS | Encounter Summary ---
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 No 02/16/2022 3:53 PM Victoria Sahu RN Is person blind or have seri ous difficulty seeing? No 02/16/2022 3:53 PM Victoria Sahu RN Does person have serious dif ficulty walking/climbing stairs? No 02/16/2022 3:53 PM Victoria Sahu RN Does person have difficulty dressing/bathing? No 02/16/2022 3:53 PM Victoria Sahu RN Does person have difficulty doing errands alone? No 02/16/2022 3:53 PM Victoria Sahu RN Does person have difficulty concentrating/remembering/making decisions? No 02/16/2022 3:53 PM Victoria Sahu RN * Question Answer Date of Assessment [...] 02/16/2022 3:53 PM Victoria Sahu RN * AUDIT-C Score Answer Date of Assessment Author 0 02/16/2022 3:53 PM Vane Sahu RN documented as of this encounter Plan of Treatment Not on file documented as of this encounter Visit Diagnoses Not on filedocumented in this encounter Additional Health Concerns Infection Onset Date Last Indicated Resolved Time COVID-19 Under Investigation 02/15/2022 02/15/2022 02/15/2022 3:59 PM POWER GENERATION TURBINE ROOM OPERATOR documented as of this encounter Care Teams Volunteer Services Director Relationship Specialty Start Date End Date Karrie Phillips MD [address] [place] [address] PCP - General 03/13/22 documented as of this encounter
--- OUTSIDE RECORDS SUMMARY | 2025-01-15 08:32 | XMS_ITS | Encounter Summary ---
Author Organization [facility] Address [address], [place] [address] Phone Care Team Providers Care Golf Club Head Former Name Role Phone Karrie Tompkins MD Primary Care Provider [phone] Reason for Visit * Reason Comments Med Refill Encounter Details Date Type Department Care Team (Late st Contact Info) Description 01/04/2022 Refill [facility] Neph[facility] and Hypertension [address] [place] [address], [address] [place] [address] Aubrey Reyna MD [address] [facility], [address] [place] [address] Social History Tobacco Use Types Packs/Day Years [...] on filedocumented in this encounter Care Teams Golf Club Head Former Relationship Specialty Start Date End Date Karrie Tompkins MD [address] [place] [address] [place] [address] PCP - General 09/07/18 documented as of this encounter
--- OUTSIDE RECORDS SUMMARY | 2025-01-15 08:32 | XMS_ITS | Encounter Summary ---
Author Organization [facility] Address [address] [place] [address] Care Team Providers Care Technical Staff Assistant Name Role Phone Farhat Crocker FIBERGLASS GRINDER Primary Care Provider [phone] Cheri Calderon FIBERGLASS GRINDER Primary Care Provider [phone] Charla Bo LPN Unavailable [phone] Encounter Details Date Type Department Care Team (Late st Contact Info) Description 04/06/2024 Orders Only [facility] Health Information Management [address] [place] [address] Scanning, Provider Social History Tobacco Use Types [...] on file 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 Gender Identity Not on file Sexual Orientation Not on file documented as of this encounter Plan of Treatment Not on file documented as of this encounter Procedures Procedure Name Priority Date/Time Associated Diagnosis Comments SCAN - RADIOLOGY/IMAGING 04/06/2024 documented in this encounter Results * SCAN - RADIOLOGY/IMAGING (04/06/2024) Anatomical Region Laterality Modality Other us Provider Scanning Edited Result - Final documented in this encounter Visit Diagnoses Not on filedocumented in this encounter Care Teams Technical Staff Assistant Relationship Specialty Start Date End Date Farhat Crocker NP [address] [place] [address] PCP - General Family Medicine 01/20/24 05/10/24 Cheri Calderon NP [address] [facility] [address] [place] [address] PCP - General Internal Medicine 05/11/24 Charla Bo, DELIVERY MGR [address] [facility] [address] [place] [address] Industrial Service Technician 09/04/24 09/04/24 documented as of this encounter
--- OUTSIDE RECORDS SUMMARY | 2025-01-15 08:32 | XMS_ITS | Clinical Summary ---
Author Organization [facility] Address [address] [facility] [place] [address] Care Team Providers Care Abalone Diver Name Role Phone Karrie Phillips MD Primary Care Provider [phone] Source Comments [facility],non-owned Affiliates and Associated Physician Practices is amultiple site organization consisting of ambulatory clinics and hospital sitesin [place], [place], [place] and [place]. This disclosure is being madepursuant to the Care Everywhere program and may not contain all information available regarding this patient. Last updated 17.[facility] Allergies Active Allergy Reactions Criticality Noted Date [...] 24 hours. 2 Active saline nasal spray (Dewitt; Baby Monrovia) 0.65 % nasal spray Wright 1 (one) spray into each nostril as needed for Dry Nose 15 mL 2 Active artificial tears ophthalmic solution Instill [...] and heating? Not hard at all 06/04/2022 [facility] [place] [facility] Occupat ional Health - Occupational Stress [...] in a half-way (including now)? No 06/04/2022 Comments No Sex and Gender Information Value Date Recorded Sex Assigned at Not on file Legal Sex Female 9:13 AM ADMINISTRATIVE ACCOUNTANT Gender Identity Not on file Sexual Orientation [...] lb 3.2 oz) 06/04/2023 2:02 P M ADMINISTRATIVE ACCOUNTANT Height 154.9 cm (5' 1) 12/04/2022 2:47 [...] CREATININE 06/24/20232022, 06/22/2022, 06/21/2022, Additional history exists DIABETES RETINOPATHY SCREENING 02/17/2024 02/16/2022, 02/15/2022 DEPRESSION SCREENING 04/01/2024 DIABETES - URINE PROTEIN SCREENING 04/01/2024 MEDICARE AWV CALENDAR YEAR 2024 COVID-19 VACCINE ( season) 2024 06/08/2020 INFLUENZA VACCINE (#1) 2024 , 12/08/2019, 01/25/2019, [...] this topic Medical Devices Implanted Type Area Jig Grinder Set Up Operator Device Identifier Shelf Expiration Date Model / Serial / Lot Jean Bone Void 10ml Dbm Grftn Algrf Ptty Implanted:Qty: 1 on 06/04/2022 by Deon Taylor MD at [facility] N/A: Spine [employer] Inc 05/04/2025 [id number] / / [id number] 90mm Rods Implanted:Qty: 2 on 06/04/2022 by Deon Taylor MD at [facility] N/A: Spine Synthes Spine [id number] / / Jean Bone Void 10ml Dbm Grftn Algrf Ptty Implanted:Qty: 1 on 06/04/2022 by Deon Taylor MD at [facility] N/A: Spine [employer] 05/04/2025 [id number] / / [id number] Graft Bone Canc 4-9.5mm 15cc Frzdr Chp Implanted:Qty: 1 on 06/04/2022 by Deon Taylor MD at [facility] N/A: Spine [employer]ource 02/26/2027 [id number] / / [id number] Graft Bone Canc 4-9.5mm 30cc Algrf Frzdr Implanted:Qty: 1 on 06/04/2022 by Deon Taylor MD at [facility] N/A: Spine [employer] 12/27/2025 [id number] / / [id number] 3.5 X 14mm Screw Implanted:Qty: 4 on 06/04/2022 by Deon Taylor MD at [facility] N/A: Spine Synthes Spine [id number] / / 4.0x 20mm Screw Implanted:Qty: 2 on 06/04/2022 by Deon Taylor MD at [facility] N/A: Spine [employer] Spine [id number] / / 5.0 X 24mm Screw Implanted:Qty: 2 on 06/04/2022 by Deon Taylor MD at [facility] N/A: Spine [employer]ynthes Spine [id number] / / 4.5 X 26mm Screw Implanted:Qty: 2 on 06/04/2022 by Deon Taylor MD at [facility] N/A: Spine [employer]ynthes Spine [id number] / / Screw Caps Implanted:Qty: 10 on 06/04/2022 by Deon Taylor MD at [facility] N/A: Spine [employer]ynthes Spine [id number] / / Procedures Procedure Name Priority Date/Time Associated Diagnosis Comments BASIC METABOLIC PANEL (CALCIUM TOTAL) AM Draw 06/23/2022 3:06 AM CDT Coffee ground emesis HEMOGLOBIN A1C Routine 06/06/2022 3:07 AM ADMINISTRATIVE ACCOUNTANT from Last 3 Months or Most Recently Relevant to Health Maintenance Results * (ABNORMAL) BASIC METABOLIC PANEL (CALCIUM TOTAL) (06/23/2022 3:06 AM CDT) [facility] BUN 10 7 - 26 mg/dL 06/23/2022 4:38 AM CDT [facility] Creatinine 1.09(H) 0.56 - 0.96 [...] 06/23/2022 3:06 AM CDT 06/23/2022 4:03 AM [facility] Anabell Hernandez PA-C LAB - CHEMISTRY ORDERABLES Final Result [facility] [address] [place] [address], [facility] [phone] * HEMOGLOBIN A1C (06/06/2022 3:07 AM [facility]) Hemoglobin A1c 5.3 <=5.6 % 06/06/2022 3:38 PM [facility] Estimated Average Glucose 105 mg/dL 06/06/2022 3:38 PM [facility] Comment: HbA1c Interpretation: Normal : < 5.7% Pre-diabetes: 5.7-6.4% Diabetes: Equal to or greater than 6.5% Test results diagnostic of diabetes should be repeated for confirmation. Treatment target values recommended by ADA and other clinical organizations should be used to evaluate metabolic control in patients. Reference: [place] Diabetes Association, Standards of Care in Diabetes -2020 In patients 70 years and older consider HbA1c target range of 7.0-7.5% (Reference: Oswaldo Liz et al. JAMDA. 2012) The Sebia assay for the measurement of HbA1c is a National Glycohemoglobin Standardization Program (NGSP) certified method. Blood BLOOD SPECIMEN / Unknown Lab Venipuncture / Unknown 06/06/2022 3:07 AM ADMINISTRATIVE ACCOUNTANT 06/06/2022 3:28 AM ADMINISTRATIVE ACCOUNTANT Ama Gonzalez MD LAB - CHEMISTRY ORDERABL ES Final Result [address] [address], [facility] [phone] from Last 3 Months or Most Recently Relevant to Health Maintenance Insurance [facility] MANAGED MEDICARE ADV [facility] MANAGED MEDICARE ADV Advance Directives * Full Code (Latest Code Status on File) Date Activated Date Inactivated Comments 06/20/2022 6:09 PM 06/23/2022 5:59 PM * Full Code Date Activated Date Inactivated Comments 06/04/2022 1:16 PM 06/08/2022 11:04 PM * Full Code Date Activated Date Inactivated Comments 02/15/2022 5:44 AM 02/19/2022 3:38 PM Care Teams Abalone Diver Relationship Specialty Start Date End Date Karrie Phillips MD [address] [place] [address] PCP - General 03/13/22
--- OUTSIDE RECORDS SUMMARY | 2025-01-15 08:32 | XMS_ITS | Encounter Summary ---
Author Organization [facility] Address [address] [place] [address] Care Team Providers Care Director Of Partner Marketing Name Role Phone Farhat Crocker RN POSTPARTUM Primary Care Provider [phone] Cheri Calderon RN POSTPARTUM Primary Care Provider [phone] Charla Bo LPN Unavailable [phone] Encounter Details Date Type Department Care Team (Late st Contact Info) Description 04/10/2024 Orders Only [facility] Health Information Management [address] [place] [address] Scanning, Provider Social History Tobacco Use Types [...] on file Legal Sex Female 8:14 PM PARTICIPANT ADMINISTRATOR Gender Identity Not on file Sexual Orientation Not on file documented as of this encounter Plan of Treatment Not on file documented as of this encounter Procedures Procedure Name Priority Date/Time Associated Diagnosis Comments SCAN - RADIOLOGY/IMAGING 04/10/2024 documented in this encounter Results * SCAN - RADIOLOGY/IMAGING (04/10/2024) Anatomical Region Laterality Modality Other us Provider Scanning Final Result documented in this encounter Visit Diagnoses Not on filedocumented in this encounter Care Teams Director Of Partner Marketing Relationship Specialty Start Date End Date Farhat Crocker NP [address] [place] [address] PCP - General Family Medicine 01/20/24 05/10/24 Cheri Calderon NP [address] [facility] [address] [place] [address] PCP - General Internal Medicine 05/11/24 Charla Bo, LEANDRA [address] [place] [address] [address] [place] [address] Data Network Architect 09/04/24 09/04/24 documented as of this encounter
--- OUTSIDE RECORDS SUMMARY | 2025-01-15 08:32 | XMS_ITS | Patient Health Record ---
Author Organization [facility] Address [address] 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) Active confirmed Problem 563879660 Fibromyalgia (M79.7) Active confirmed Problem 61483381 Essential hypertension (I10) Active confirmed Problem 014033567 Mixed hyperlipidemia (E78.2) Active confirmed Problem 81757756 Recurrent major depressive disorder, in partial remission (F33.41) Active confirmed Problem 882620472 MCTD (mixed connective tissue disease) (M35.1) Active confirmed Problem 771775797 Diabetes 1.5, 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 Plan Of Treatment No Information Insurance Providers Payer Name Payer Address Payer Phone Subscriber Number Group Number Insured Name Patient Relationship to Insured Coverage Start Date Coverage End Date A[employer] MCR [employer] [address] [address] [place] [address] [id number] [id number] Kandace Cole Self - patient is the insured 7 Medical (General) History Medical History History ICD Code Ferrell's esophagus CAD Connective tissue disease COPD Mild depression Diabetes Fibromyalgia Hyperlipidemia Hypertension NSAID ferry terminal agent use Iron deficiency anemia Osteoarthritis Raynaud's disease [...]
--- OUTSIDE RECORDS SUMMARY | 2025-01-15 08:32 | XMS_ITS | Encounter Summary ---
Author Organization [facility] Address [address] [place] [address] Care Team Providers Care Travel Registered Nurse Pacu Name Role Phone Karrie Phillips MD Primary Care Provider [phone] Encounter Details Date Type Department Care Team (Late st Contact Info) Description 02/16/2022 Ophth Exam [facility] [address] [facility] [place] [id number] Pi, [place] [address] [address] Social History Tobacco Use Types [...] on file Legal Sex Female 9:13 AM HULL LINE CREW MEMBER Gender Identity Not on file Sexual Orientation [...] on filedocumented in this encounter Care Teams Travel Registered Nurse Pacu Relationship Specialty Start Date End Date Karrie Phillips MD [address] [place] [address] PCP - General 03/13/22 documented as of this encounter
--- OUTSIDE RECORDS SUMMARY | 2025-01-15 08:32 | XMS_ITS | Clinical Summary ---
Author Organization [facility] [address] Address [address] [place] [address] Care Team Providers Care Power And Recovery Superintendent Name Role Phone Cheri Calderon NP Primary Care Provider [phone] Allergies Active Allergy Reactions Criticality Noted Date [...] Unknown 09/07/2018 Travoprost Unknown 09/07/2018 Vit C-Vit [id number] Other (See comments) 08/26/2024 Medications latanoprost (XALATAN) 0.005 % ophthalmic solution daily [address] (PROTONIX) 40 mg EC [...] eye(s) every 4 (four) hours as needed Active vitamins A,C,W-uogf-oyhhqd (PreserVision AREDS) 2,148 mcg-113 mg-45 mg-17.4mg tablet 1 tablet Act shakir allopurinoL (ZYLOPRIM) 100 mg tablet Take 1 tablet (100 mg total) by mouth daily Active carvediloL (COREG) 12.5 mg tablet Take 1 tablet (12.5 mg total) by mouth 2 (two) times a day Active furosemide (LASIX) 20 mg tabletIndications :Edema, lower extremity Take 1 tablet (20 mg total) by mouth daily for 10 days, THEN 1 tablet (20 mg total) every other day. One pill every other day. 190 tablet 025 2025 Active meclizine (ANTIVERT) 25 mg tablet Take 1 tablet (25 mg total) by mouth 3 (three) times a day as needed for dizziness 30 tablet 3 025 Active mupirocin (BACTROBAN) 2 % ointmentIndicatio ns:Sore nose Apply topically 3 (three) times a day 22 g 1 025 Active acetaminophen (TYLENOL) 500 mg tablet every 6 hours Active fluticasone propionate (FLONASE) 50 mcg/actuation nasal spray daily as needed 023 Active ondansetron ODT (ZOFRAN-ODT) 4 mg disintegrating tablet DISSOLVE ONE TABLET BY MOUTH EVERY 6 HOURS NEEDED FORNAUSEA AND VOMITING 023 Active sodium chloride (OCEAN) 0.65 % drops Administer 1 spray into affected nostril(s) as needed Active tavaborole 5 % solution with applicator APPLY TOPICALLY TO AFFECTED NAILS ONCE DAILY 025 Active clopidogreL (PLAVIX) 75 mg tabletIndications :coronary artery disease Take 1 tablet (75 mg total) by mouth daily 30 tablet 11 025 2025 Active amLODIPine (NORVASC) 5 mg tablet TAKE 1 TABLET BY MOUTH EVERY MORNING 100 tablet 2 025 Active semaglutide (Ozempic) 0.25 mg or 0.5 mg (2 mg/3 mL) pen injector injectionIndicati ons:Hypertension associated with diabetes (HCC) Inject 0.5 mg under the skin once a week 10.5 mL 1 025 Active QUEtiapine XR (SEROquel XR) 50 mg tablet extended release 24 hr TAKE 2 TABLETS BY MOUTH EVERY DAY IN THE EVENING 90 tablet 1 025 Active buPROPion SR (WELLBUTRIN SR) 100 mg 12 hr tablet Take 1 tablet (100 mg total) by mouth 2 (two) times a day 180 tablet 1 025 Active buPROPion SR (WELLBUTRIN SR) 100 mg 12 hr tablet Take 1 tablet (100 mg total) by mouth 2 (two) times a day 2024 Discontinued(R eorder) QUEtiapine XR (SEROquel XR) 50 mg tablet extended release 24 hr Take 2 tablets (100 mg total) by mouth nightly 024 2024 Discontinued semaglutide (Ozempic) 0.25 mg or 0.5 mg (2 mg/3 mL) pen injector injectionIndicati ons:Hypertension associated with diabetes (HCC) INJECT 0.5 MG UNDER THE SKIN EVERY 7 DAYS 10.5 mL 1 025 2024 Discontinued(R eorder) Active Problems Problem Noted Date Diagnosed Date [...] 02/23/2019 Assessment & Plan (05/12/2024 11:22 AM PROJECT DIRECTOR): This is a significant, separately identifiable problem that was evaluated and managed on the same day as the wellness exam Mixed hyperlipidemia 02/23/2019 Type 2 diabetes mellitus with hyperlipidemia Degeneration of cervical intervertebral disc 12/2009 Resolved Problems Problem Noted Date Diagnosed Date Resolved Date Obesity (BMI 30-39.9) 05/12/20242024 Assessment & Plan (05/12/2024 10:46 AM PROJECT DIRECTOR): Discussed the patients BMI: The BMI is above average BMI management is complete. BMI follow-up includes: Nutrition Counseling and education provided Encounters Date Type Department Care Team Description 10/29/2024 ACO Quality [facility] Accountable Care Organization [address] [place], [place] [id number] Amairani Torres MA 10/15/2024 Orders Only [facility] Information Management [address] [place] [id number] Piero Stevenson MD from Last 3 Months Immunizations Immunization Administration Dates Next Due DTP 07/18/2011 Influenza LAIV (Nasal) 12/09/2019 Influenza, Quadrivalent, Hig h Dose, Preservative Free, Intrr 12/08/2019,01/25/2019 Influenza, Quadrivalent, Spl it, Intramuscular 12/09/2019,12/30/2018 Influenza, Trivalent, High D ose, Split, Preservative Free, Intramuscular 12/08/2019,01/25/2019 Influenza, Unspecified 04/01/2024(Deferr ed: Patient Refused - off season),04/01/2024(Deferred: Patient Refused),04/01/2023,04/01/2023(Deferre d: Patient Refused) Nippo (J&J) SARS-CoV-2 Vaccination 06/08/2020 Pneumococcal Conjugate PCV 13 06/30/2018 Pneumococcal Polysaccharide PPV23 07/01/2019 ZOSTER Recombinant 03/18/2019,01/12/2019 Surgical History Surgery Date Site/Laterality Comments LAMINECTOMY APPENDECTOMY HYSTERECTOMY CATARACT EXTRACTION CARPAL TUNNEL RELEASE Bilateral TONSILLECTOMY ROTATOR CUFF REPAIR Bilateral IMPLANTABLE CARDIAC DEVICE 09/02/2024 N/A Procedure: PERC LANDY CLOSE W/IMPLANT 09150; Surgeon: Ori Murillo MD; Location: [facility]ARDI[facility]; Service: Cardiovascular; Laterality: N/A; Medical devices from this surgery are in the Medical Devices section. Medical History Medical History Date Comments Hypertension Heart murmur Hyperlipidemia Raynaud's disease Depression Ferrell's esophagus Iron deficiency anemia COPD (chronic obstructive pu lmonary disease) Sleep apnea Vertigo Dyspnea on exertion Atrial fibrillation (HCC) Type 2 diabetes mellitus Hyposmolality Hyperthyroidism Glaucoma Macular degeneration History of GI bleed 04/2024 [facility], hospitalized 3 weeks Transfusion history 04/2024 iron transfu nely at [facility] Chronic kidney disease Hyperkalemia Anemia Fibromyalgia Arthritis [...] on file Legal Sex Female 8:14 PM PROJECT DIRECTOR Gender Identity Not on file Sexual [...] Tdap) 07/17/2021 2 Covid-19 Vaccine (3 - 2024-2 6 season) 2024 01/25/2021, 06/08/2020 Influenza Vaccine (#1) 2024 4, 12/09/2019, 12/09/2019, Additional history exists Hemoglobin A1C 12/03/2024 06/02/2024, 10/2022, 02/16/2022 Well Visit 65+ 05/12/2025 05/12/2024 Albumin Creatinine Ratio, Urine 06/02/2025 Lipid Panel 06/02/2025 06/02/2024, 12/31, 10/22/2022, Additional history exists Breast Cancer Screening-Mammogram 06/09/2025 025 Depression Screening 08/11/2025 08/11/2024, 05/12/19 25 Fall Risk Assessment 09/03/2025 09/03/2024, 08/11/2024, 05/12/2024 eGFR 09/03/2025 09/03/2024, 07/31, 06/02/2024 Dilated Eye Exam 08/13/2026 08/13/2024 Zoster Vaccine Completed 03/18/2019, 01/12/2019 Pneumococcal vaccine 65+ Completed 07/01/2019, 04/2018 Medical Devices Implanted Type Area Gang Miner Device Identifier Shelf Expiration Date Model / Serial / Lot [employer] Occluder Cvasc Landy Flexible Braided Amplatzer Amulet 18mm Nitinol [id number] - [id number] Implanted:Qty: 1 on 09/02/2024 by Ori Murillo MD at [facility] Septal Defect Closure Device [employer] 07/29/2028 [id number] / [id number] Procedures Procedure Name Priority Date/Time Associated Diagnosis Comments CARDIOLOGY DOCUMENT SCAN 10/15/2024 EGFR Routine 09/03/2024 5:04 AM CDT DIABETIC EYE EXAM Routine 08/13/2024 4:2 3 PM CDT SCREENING MAMMOGRAM BILATERAL W ROLDAN Schedule Routine, Read Routine (OP Routine) 06/09/2024 11:52 AM CDT Breast cancer screening by mammogram HEMOGLOBIN A1C Routine 06/02/2024 10:33 AM PROJECT DIRECTOR Hypertension associated with diabetes (HCC) Type 2 diabetes mellitus with hyperlipidemia (HCC) LIPID PANEL Routine 06/02/2024 10:33 AM PROJECT DIRECTOR Type 2 diabetes mellitus with hyperlipidemia (HCC) ALBUMIN CREATININE RATIO, URINE Routine 06/02/2024 10:33 AM PROJECT DIRECTOR Hypertension associated with diabetes (HCC) from Last 3 Months or Most Recently Relevant to Health Maintenance Results * Cardiology Document Scan (10/15/2024) Anatomical Region Laterality Modality Other Piero Stevenson MD [facility] CARDIAC SERVICES PROCEDURES E dited Result - Final * (ABNORMAL) eGFR (09/03/2024 5:04 AM CDT) [...] of Race in Diagnosing Kidney Disease, JASN 202). The CKD-EPI equation should not be used for patients with unstable renal function and has not been validated in children and those over 70. Current interpretive data was last reviewed 2021. Blood 09/03/2024 5:04 AM CDT 09/03/2024 5:29 AM CDT Ori Murillo MD LAB BLOOD ORDERABLES Final Result [facility] [address] Department [place] [address] * Diabetic Eye Exam (08/13/2024 4:23 PM CDT) Historical Provider HEALTH MAINTENANCE Edited Result - Final * Screening Mammogram Bilateral W Roldan (06/09/2024 11:52 AM CDT) Anatomical Region Laterality Modality Breast Bilateral Mammography Cheri Calderon PRIMER INSERTING MACHINE OPERATOR IMG MAMMO PROCEDURES Final Re sult * (ABNORMAL) Albumin Creatinine Ratio, Urine (06/02/2024 10:33 AM PROJECT DIRECTOR) Creatinine, ur 160 20 - 275 mg/dL [...] diagnostic category. Urine 06/02/2024 10:3 3 AM PROJECT DIRECTOR 06/02/2024 10:33 AM PROJECT DIRECTOR Narrative [facility] - 06/03/2024 6:08 AM PROJECT DIRECTOR FASTING:YES FASTING: YES Cheri Calderon NP LAB URINE ORDERABLES Final Re sult [facility] [address] [address] * Hemoglobin A1c (06/02/2024 10:33 AM PROJECT DIRECTOR) Hgb A1C 5.5 <5.7 % of total Hgb [facility] Comment: For the purpose of screening for the presence of diabetes: <5.7% Consistent with the absence of diabetes 5.7-6.4% Consistent with increased risk for diabetes (prediabetes) > or =6.5% Consistent with diabetes This assay result is consistent with a decreased risk of diabetes. Currently, no consensus exists regarding use of hemoglobin A1c for diagnosis of diabetes in children. According to [place] Diabetes Association (ADA) guidelines, hemoglobin A1c <7.0% represents optimal control in non- diabetic patients. Different metrics may apply to specific patient populations. Standards of Medical Care in Diabetes(ADA). Blood 06/02/2024 10:3 3 AM PROJECT DIRECTOR 06/02/2024 10:33 AM PROJECT DIRECTOR Narrative [facility] - 06/03/2024 6:08 AM PROJECT DIRECTOR FASTING:YES FASTING: YES us Cheri Calderon NP LAB BLOOD ORDERABLES Final [facility]ult [facility] [address] [place] [address] * (ABNORMAL) Lipid panel (06/02/2024 10:33 AM PROJECT DIRECTOR) Cholesterol 129 <200 mg/[facility] HDL 38(L) > OR = 50 mg/dL [facility] Triglycerides 159(H) <150 mg/dL [facility] LDL 67 mg/dL (calc) [facility] Comment: Reference range: <100 Desirable range <100 mg/dL for primary prevention; <70 mg/dL for patients with CHD or diabetic patients with > or = 2 CHD risk factors. LDL-C is now calculated using the Harpreet-Memo calculation, which is a validated novel method providing better accuracy than the Friedewald equation in the estimation of LDL-C. Harpreet SS et al. EVELYNE. 2013;310(19): 8771-6282 (http://education.Vadio/faq/CYK792) Chol/HDL ratio 3.4 <5.0 (calc) [facility] Non-HDL, (LDL+VLDL) 91 <130 mg/dL (calc) [facility] Comment: For patients with diabetes plus 1 major ASCVD risk factor, treating to a non-HDL-C goal of <100 mg/dL (LDL-C of <70 mg/dL) is considered a therapeutic option. Blood 06/02/2024 10:3 3 AM PROJECT DIRECTOR 06/02/2024 10:33 AM PROJECT DIRECTOR Narrative [facility] - 06/03/2024 6:08 AM PROJECT DIRECTOR FASTING:YES FASTING: YES Cheri Calderon PRIMER INSERTING MACHINE OPERATOR LAB BLOOD ORDERABLES [facility] [address] [place] [address] from Last 3 Months or Most Recently Relevant to Health Maintenance Insurance [facility] MEDICARE Address: [facility] [address] [place] [address] [facility] MDCR HMO REF [facility] MEDICARE Address: [address] [address] [place] [address] [facility] MEDICARE ADVANTAGE [facility] MEDICARE Address: [address] [address] [place] [address] Advance Directives For more information, please contact: [phone] Documents on File Type Date Recorded Patient Program Director/Air Personality Expl anation ADVANCE DIRECTIVE 09/02/2024 8:07 AM Power of Process Inspector-Medical Care Teams Power And Recovery Superintendent Relationship Specialty Start Date End Date Cheri Calderon NP [facility] [address] PCP - General Internal Medicine 05/11/24
--- OUTSIDE RECORDS SUMMARY | 2025-01-15 08:32 | XMS_ITS | Clinical Summary ---
Author Organization [facility] Address [address] [place] [address] Care Team Providers Care Welfare Adviser Name Role Phone None, Provider MD Primary [...] Comments Blood Pressure 102/68 05/27/2022 1:18 PM PAPER CORE MACHINE OPERATOR Pulse 70 05/27/2022 1:18 PM PAPER CORE MACHINE OPERATOR Temperature 36.8 C (98.3 F) 05/27/2022 1:18 PM PAPER CORE MACHINE OPERATOR Respiratory Rate 18 05/27/2022 1:18 PM PAPER CORE MACHINE OPERATOR Oxygen Saturation 100% 05/27/2022 1:18 PM PAPER CORE MACHINE OPERATOR Inhaled Oxygen Concentration - - Weight 64.7 kg (142 lb 10.2 oz) 05/27/2022 1:18 PM PAPER CORE MACHINE OPERATOR Height 154.9 cm (5' 1) 05/27/2022 1:18 PM PAPER CORE MACHINE OPERATOR Body Mass Index 26.95 05/27/2022 1:18 PM PAPER CORE MACHINE OPERATOR Plan of Treatment Health Maintenance Due Date Last Done Comments Colorectal Cancer Screening Colonoscopy (10 Years) 1950 Hepatitis C 02/12/1968 Mammogram Screening 1990 Annual Medicare Wellness Visit 2015 Dexa Scan (General) 2015 DTaP, Tdap and Td Vaccines (2 - Tdap) 07/17/2021 07/18/2011 COVID-19 Vaccine ( - season) 2024 01/25/2021, 06/03/2020 Influenza Adult (#1) 2024 12/09/2019, 12/08/2019, 01/25/2019, Additional history exists RSV [...] to complete this topic Insurance Care Teams Welfare Adviser Relationship Specialty Start Date End Date None, Provider, PCP - General UNKNOWN PHYSICIAN SPECIALTY 05/27/22
[2025-01-15 08:35] LABS: Hematocrit 33.3 % (37.0-47.0); Hemoglobin 10.9 g/dL (12.0-15.0); Immature Granulocyte Percent A 0.5 % (0-0.5); Lymphocytes Absolute Auto 0.99 K/mm3 (0.9-3.2); Mean Corpuscular HGB Conc 32.7 g/dl (32-36); Mean Corpuscular Hemoglobin 31.1 pg (26-34); Mean Corpuscular Volume 94.9 fl (80-100); Nucleated Red Blood Cells Absolute Auto 0.000 K/mm3 (0.0-0.012); Nucleated Red Blood Cells Perc 0.0 % (0.0-0.2); Platelet Count Result 224 k/mm3 (150-375); Red Blood Count 3.51 M/mm3 (4.2-5.4); White Blood Count 9.3 K/mm3 (4.5-10.0)
[2025-01-15 08:47] LABS: INR 1.0; Prothrombin Time 13.3 Seconds (11.1-14.7)
[2025-01-15 08:48] LABS: Alanine Aminotransferase 19 U/L (6-35); Albumin Level 4.0 g/dL (3.5-5.1); Alkaline Phosphatase 81 U/L (38-126); Anion Gap 6 mmol/L (4-12); Aspartate Amino Transferase 26 U/L (14-36); Bilirubin,Total 0.6 mg/dL (0.2-1.3); Blood Urea Nitrogen 29 mg/dL (7-17); Calcium 9.3 mg/dL (8.4-10.2); Carbon Dioxide 28 mmol/L (22-30); Chloride 102 mmol/L (98-107); Estimated Glomerular Filt Rate 33; Glucose 139 mg/dL (65-110); Partial Thromboplastin Time 25.4 Seconds (22.3-36.8); Potassium 4.1 mmol/L (3.4-5.0); Sodium 136 mmol/L (137-145); Total Protein 6.8 g/dL (6.3-8.2)
[2025-01-15 09:58] LABS: Add Urine Microscopic? NO; Appearance Urine Clear (Clear); Glucose Urine UA Negative (Negative); Leukocyte Esterase Ur Negative LEU/UL (Negative); Nitrate Urine Negative (Negative); Specific Grav Ur 1.012 (1.001-1.035)
[2025-01-15] MEDS: HYDROcodone/acetaminophen (*CRX) 5-325 MG TABLET 1 TAB PO ×3 (11:30→21:33)
--- NOTE | 2025-01-15 13:49 | PM.IMHP ---
H&P: HPI History of Present Illness Date/Time: 01/15/25 13:49 Chief Complaint: Fall Narrative: 74 yo F with if fever, CKD stage 4, glaucoma, COPD from secondhand smoking, CHF with left ventricular positioning device presented to the ER after falling. Patient data general fall last night in her basement while doign some work, missed a step on the staircase and fell with head trauma and no loss of osnciousness. Noted a right hip pain after nausea. Otherwise denies any chest pain, no shortness for breath, nausea vomiting 100 pain no diarrhea or dysuria prior to episode. ER evaluation notable for vital signs stable within normal limits. Labs notable for hemoglobin 10.9 creatinine 1.53, which is baseline. CT pelvis showed fracture of the left superior and inferior pubic ramus the. Cervical spine CT showed severe cervical spondylosis C5-C6 laminectomies and C3-C7 anterior and see to C2 posterior spinal fusion CT head no acute changes. Review of Systems Review of Systems: All other systems reviewed and negative except as noted in the history above. [facility] Past Medical History Medical History COPD (chronic obstructive pulmonary disease) Atrial fibrillation Diabetes type 2, controlled Restless leg syndrome Chronic kidney disease, stage IV (severe) Hyperlipidemia Vitamin D deficiency Raynaud's disease Anemia Depression Degenerative disc disease Cervical neck fusion in 2006 Arthritis Musculoskeletal disorder Bilateral rotator cuff surgery, bilateral carpal tunnel, arthritis, left thumb subluxed Ferrell's esophagus Pneumonia Hypertension Heart murmur Migraines Last migraine 2006 Glaucoma Cataracts, bilateral Surgical History Surgical History History of cervical spinal surgery History of orthopedic surgery Lower back disc removal 1986, repair of spinal leak 1987 History of appendectomy History of tonsillectomy Family History Family History Sibling Family history of thyroid disease Family history of obesity Family history of osteoporosis Family history of migraine headaches Hypertension Family history of elevated blood lipids Family history of alcoholism Family history of diabetes mellitus in first degree relative Family history of coronary artery disease Father Family history of osteoporosis Family history of lung cancer Mother Family history of osteoarthritis Family history of malignant melanoma Family history of atrial fibrillation Social History Social History Social History: Surrogate medical decision maker: Code status: Full code. Smoking status: Never smoker Second hand tobacco smoke exposure: No Alcohol intake: never Substance use: never Substance use type: does not use Other substance usage details: cbd gummies without thc Do You Feel Safe in your Home?: Yes Lack of Transportation: No Lack of Food: Never True Current Housing: I Have Housing Concerned About Future Housing: No Difficulty Paying Gas/Electric Bills: No Difficulty Paying for Meds: No Currently Unemployed: No Education: Associate Degree Difficulty w/ Childcare or Family Care: No Living arrangements: with family Spiritual care concerns: No Meds Home Medications and Allergies Home Medications ?Medication ?Instructions ?Recorded ?Confirmed ?Type bupropion HCl 100 mg tablet 100 mg PO BID 12/24/20 01/15/25 History cholecalciferol (vitamin D3) 50 50 mcg PO BID 12/24/20 01/15/25 History mcg (2,000 unit) tablet (Vitamin D3) latanoprost 0.005 % eye drops 1 drp EACH EYE DAILY 12/24/20 01/15/25 History (Xalatan) meclizine 25 mg tablet 25 mg PO TID PRN dizziness #14 tabs 12/24/20 01/15/25 Rx pantoprazole 40 mg tablet,delayed 40 mg PO QAM 12/24/20 01/15/25 History release (Protonix) pravastatin 40 mg tablet 40 mg PO DAILY 12/24/20 01/15/25 History acetaminophen 325 mg tablet (Mapap 650 mg (2 x 325 mg) PO Q6H PRN 06/15/22 01/15/25 Rx (acetaminophen)) Mild Pain (1-3) Or Fever #30 tabs carvedilol 12.5 mg tablet (Coreg) 12.5 mg PO Q12HR #60 tabs 06/15/22 01/15/25 Rx peg [id number] 1 1 drp EACH EYE Q4H PRN Dry Eye(S) 06/15/22 01/15/25 Rx %-0.2 %-0.2 % eye drops #15 mL (Artificial Tears ([id number])) quetiapine 50 mg tablet 100 mg (2 x 50 mg) PO HS #30 tabs 06/15/22 01/15/25 Rx cetirizine 10 mg tablet (Zyrtec) 10 mg PO DAILY PRN allergy symptoms 08/20/23 01/15/25 History amlodipine 5 mg tablet (Norvasc) 5 mg PO QAM #90 tabs 04/19/24 01/15/25 Rx furosemide 20 mg tablet 20 mg PO .COMPLEX 05/11/24 01/15/25 History calcitriol 0.25 mcg capsule See Rx Instructions .Route 06/30/24 01/15/25 Rx .COMPLEX #360 caps allopurinol 100 mg tablet 100 mg PO DAILY 10/14/24 01/15/25 History clopidogrel 75 mg tablet 75 mg PO DAILY 10/14/24 01/15/25 History fluticasone propionate 50 1 spray intranasal DAILY PRN 10/14/24 01/15/25 History mcg/actuation nasal allergy symptoms spray,suspension (24 Hour Allergy Relief) ondansetron 4 mg disintegrating 4 mg PO Q6H PRN nausea and vomiting 10/14/24 01/15/25 History tablet semaglutide 0.25 mg or 0.5 mg (2 0.5 mg subcut WEEKLY 10/14/24 01/15/25 History mg/3 mL) subcutaneous pen injector ([facility]) sodium chloride 0.65 % nasal drops 1 drp intranasal BID PRN dry nasal 10/14/24 01/15/25 History passages vit C 250 mg-vit E 90 mg-zinc 40 1 tablet PO ONCE 10/14/24 01/15/25 History mg-copper 1 op-swpftd-ifhbjv capsule (PreserVision AREDS-2) Allergies Allergy/AdvReac Type Severity Reaction Status Date / Time adhesive tape Allergy Mild Unknown Verified 01/15/25 07:57 Influenza Virus Vaccines Allergy Mild Hives Verified 01/15/25 07:57 Iodinated Contrast Media Allergy Mild kidney Verified 01/15/25 07:57 failure smallpox vaccine,live Allergy Mild Hives Verified 01/15/25 07:57 Sulfa (Sulfonamide Allergy Mild HIVES Verified 01/15/25 07:57 Antibiotics) sulfamethoxazole Allergy Mild HIVES Verified 01/15/25 07:57 cyclobenzaprine Allergy Unknown Unknown Verified 01/15/25 07:57 fluoxetine Allergy Unknown Unknown Verified 01/15/25 07:57 latex Allergy Unknown Unknown Verified 01/15/25 07:57 meperidine Allergy Unknown Unknown Verified 01/15/25 07:57 naproxen Allergy Unknown Unknown Verified 01/15/25 07:57 trimethoprim Allergy Unknown Unknown Verified 01/15/25 07:57 egg AdvReac Intermediate Unknown Verified 01/15/25 07:57 bethanechol AdvReac Mild INTESTINAL Verified 01/15/25 07:57 PROBLEMS SEE NSG NOTES Allergy Unknown Unknown Uncoded 10/15/24 12:04 Vital Signs Vital Signs - 24 hr 01/15/25 07:46 01/15/25 07:58 01/15/25 08:00 Temperature 97.3 F L Pulse Rate 85 82 81 Respiratory Rate 18 12 13 Blood Pressure 159/75 H Pulse Oximetry 100 100 100 01/15/25 08:01 01/15/25 08:21 01/15/25 08:30 Temperature Pulse Rate 81 81 80 Respiratory Rate 17 8 L 13 Blood Pressure 159/71 H Pulse Oximetry 100 96 98 01/15/25 09:49 01/15/25 10:58 Temperature 99.0 F Pulse Rate 85 86 Respiratory Rate 11 L 18 Blood Pressure 137/66 104/74 Pulse Oximetry 100 100 Exam Narrative: General: alert and comfortable Eyes: EOMI, PERRLA ENNT External ears normal, Neck is supple, no masses, Respiratory systems: Clear to auscultation Cardiovascular S1, S2, normal rhythm, no murmur, rub, or gallop; no thrill or palpable murmurs on palpation. Gastrointestinal: soft, non-tender, and non-distended abdomen with no masses; BS present Skin: no rash, lesions, ulcerations, subcutaneous nodules or induration Musculoskeletal: Left lower extremity pain limiting exam Neurologic: Alert and oriented x3, non focal Mental Status Exam: normal affect H&P: Results Labs Labs: Short CBC 01/15/25 Range/Units 08:29 WBC 9.3 (4.5-10.0) K/mm3 Hgb 10.9 L D (12.0-15.0) g/dL Hct 33.3 L (37.0-47.0) % Plt Count 224 (150-375) k/mm3 BMP 01/15/25 08:29 Sodium 136 L Potassium 4.1 Chloride 102 Carbon Dioxide 28 BUN 29 H D Creatinine 1.53 H Glucose 139 H Calcium 9.3 Liver Function 01/15/25 Range/Units 08:29 Total Bilirubin 0.6 (0.2-1.3) mg/dL AST 26 (14-36) U/L ALT 19 (6-35) U/L Alkaline Phosphatase 81 (38-126) U/L Albumin 4.0 (3.5-5.1) g/dL Urine 01/15/25 Range/Units 09:44 Urine Color Yellow (Yellow) Urine Appearance Clear (Clear) Urine pH 5.5 (5.0-9.0) Ur Specific [place] 1.012 (1.001-1.035) Urine Protein Negative (Negative) mg/dL Urine Glucose (UA) Negative (Negative) mg/dL Assessment and Plan Assessment and plan (1) Closed pelvic fracture: Code(s): S32.9XXA - Fracture of unspecified parts of lumbosacral spine and pelvis, initial encounter for closed fracture Status: Acute Plan Left superior and inferior ramus fracture Following a mechanical fall CT pelvis reviewed Continue PRN pain with I dilaudid, and [place] PT/OT Ortho consulted Afib Hold Coreg for soft blood pressure and hold Eliquis for now monitor CKD IV avoid nephrotoxics monitor CHF with left ventricular partitioning device titrate home meds with clinical course COPD from second hand smoking COntinue PRN Duoneb HTN Titrate home meds with clinical course DVT prophylaxis on Sq Lovenox for now. Full code SDM: Marnie White Hospitalist [facility] Advance Care Plan I have confirmed that the patient's Advanced Care Plan is present, code status is documented, or surrogate decision maker is listed in patient medical record.: Yes Medication Reconciliation I have utilized all available resources to obtain, update and review the patients current medications (includes all prescriptions, OTC, herbals, cannabis, and nutritional supplements).: Yes
[2025-01-15] MEDS: IPRATROPIUM 0.5 MG/ALBUTEROL SULFATE 2.5 MG (BASE) AMPUL.NEB 3 ML INHALATION (21:18)
[2025-01-16] VITALS (10 sets, daily range): BP systolic 131–140; BP diastolic 52–61; PULSE 80–99; RESP 16–20; TEMP 36.2–36.6; O2SAT 95–100
[2025-01-16] MEDS: HYDROcodone/acetaminophen (*CRX) 5-325 MG TABLET 1 TAB PO ×3 (06:31→21:51)
[2025-01-16 06:59] LABS: Iron 63 ug/dL (37-170)
[2025-01-16 07:08] LABS: Percent Iron Saturation 24 % (20-50)
[2025-01-16 07:41] LABS: Ferritin 56.90 ng/mL (11.1-264)
[2025-01-16] MEDS: IPRATROPIUM 0.5 MG/ALBUTEROL SULFATE 2.5 MG (BASE) AMPUL.NEB 3 ML INHALATION ×3 (09:09→20:50)
[2025-01-16] MEDS: ENOXAPARIN 40 MG/0.4 ML SYRINGE SUB-Q (13:00)
--- NOTE | 2025-01-16 15:43 | PCPTNOTE ---
Physical therapy waiting on Ortho consult for weightbearing status. Physical therapy will check on patient tomorrow as time allows.
--- NOTE | 2025-01-16 16:33 | PM.IMPN ---
Progress Note: A&P Assessment and Plan (1) Closed pelvic fracture: Code(s): S32.9XXA - Fracture of unspecified parts of lumbosacral spine and pelvis, initial encounter for closed fracture Status: Acute Plan Left superior and inferior ramus fracture Following a mechanical fall CT pelvis reviewed Continue PRN pain with dilaudid, and [place] PT/OT Awaiting Ortho eval Afib Restart Coreg for soft blood pressure and hold Eliquis for now monitor CKD IV avoid nephrotoxics monitor CHF with left ventricular partitioning device Continue home meds COPD from second hand smoking Continue PRN Duoneb HTN Titrate home meds with clinical course DVT prophylaxis on Sq Lovenox for now. Full code SDM: Marnie White Subjective Date/time seen: 01/16/25 16:33 Interval history: Comfortable at bedside Awaiting Ortho eval Review of Systems Review of Systems: All other systems reviewed and negative except as noted in the history above. Exam Narrative: General: alert and comfortable Eyes: EOMI, PERRLA ENNT External ears normal, Neck is supple, no masses, Respiratory systems: Clear to auscultation Cardiovascular S1, S2, normal rhythm, no murmur, rub, or gallop; no thrill or palpable murmurs on palpation. Gastrointestinal: soft, non-tender, and non-distended abdomen with no masses; BS present Skin: no rash, lesions, ulcerations, subcutaneous nodules or induration Musculoskeletal: Left lower extremity pain limiting exam Neurologic: Alert and oriented x3, non focal Mental Status Exam: normal affect Objective Data Vital Signs Vital Signs: Vital Signs - 24 hr 01/15/25 20:00 01/15/25 21:18 01/15/25 21:26 Temperature Pulse Rate 81 81 Respiratory Rate 18 Blood Pressure Pulse Oximetry 96 Oxygen Delivery Room Air Room Air Fraction of Inspired Oxygen 21 01/15/25 21:28 01/15/25 21:35 01/16/25 06:52 Temperature 97.5 F L 97.2 F L Pulse Rate 79 86 80 Respiratory Rate 18 18 16 Blood Pressure 150/51 H 140/56 L Pulse Oximetry 96 95 Oxygen Delivery Fraction of Inspired Oxygen 01/16/25 08:00 01/16/25 09:10 01/16/25 09:13 Temperature Pulse Rate 87 90 87 Respiratory Rate 18 18 18 Blood Pressure Pulse Oximetry 95 Oxygen Delivery Room Air Fraction of Inspired Oxygen 21 01/16/25 14:00 01/16/25 14:35 01/16/25 14:40 Temperature 97.6 F Pulse Rate 96 87 87 Respiratory Rate 17 18 18 Blood Pressure 131/52 L Pulse Oximetry 100 Oxygen Delivery Fraction of Inspired Oxygen Intake/Output Intake/Output: Intake & Output 01/13/25 01/14/25 01/15/25 01/16/25 23:59 23:59 23:59 23:59 Intake Total 120 360 Output Total 500 Balance -380 360 Meds/Results Medications: Active Medications Generic Name Dose Route Start Last Admin Trade Name Freq PRN Reason Stop Dose Admin Hydrocodone Bitart/Acetaminophen 1 tab 01/15/25 09:29 01/16/25 13:29 Hydrocodone/Acetaminophen (*Crx) 5-325 Mg Tablet PO 1 tab Q4H PRN Administration Pain Rated 4-6 Albuterol/Ipratropium 3 ml 01/15/25 20:00 01/16/25 14:15 Ipratropium 0.5 Mg/Albuterol Sulfate 2.5 Mg (Base) Ampul.Neb 3 Ml INHALATION 3 ml Q6HRT JUAN PABLO Administration Allopurinol 100 mg 01/16/25 09:00 01/16/25 09:22 Allopurinol 100 Mg Tablet PO 100 mg DAILY JUAN PABLO Administration Bupropion HCl 100 mg 01/15/25 17:00 01/16/25 16:14 Bupropion Hcl 100 Mg Tablet PO 100 mg BID JUAN PABLO Administration Enoxaparin Sodium 40 mg 01/16/25 12:30 01/16/25 13:00 Enoxaparin 40 Mg/0.4 Ml Syringe SUB-Q 40 mg DAILY JUAN PABLO Administration Hydromorphone HCl 0.5 mg 01/15/25 14:00 Hydromorphone Hcl Inj (*Crx) 1 Mg/Ml Syr IV PUSH Q3H PRN Pain Rated 7-10 Hydroxyzine HCl 10 mg 01/16/25 01:57 01/16/25 09:21 Hydroxyzine Hcl 10 Mg Tablet PO 10 mg Q6H PRN Administration Itching Radiology Results: ITS Impressions Head CT 01/15/25 08:19 Impression: 1.No acute intracranial abnormality. Cervical Spine CT 01/15/25 08:20 IMPRESSION: 1. Severe cervical spondylosis with C5 and C6 laminectomies and C3-C7 anterior and C3-T2 posterior spinal fusion, portions of which are instrumented. No acute osseous abnormality. Hip/Pelvis X-Ray 01/15/25 08:26 Impression: No acute fracture or malalignment. Shoulder X-Ray 01/15/25 08:27 Impression: No acute fracture or malalignment. Pelvis CT 01/15/25 08:45 IMPRESSION: Fracture of the left superior and inferior pubic ramus detailed above with extension into the symphysis pubis. Associated posttraumatic hemorrhage. Follow-up is suggested to assess Labs Labs: Laboratory Results - last 24 hr 01/16/25 06:16 Iron 63 TIBC 258 L % Saturation 24 Ferritin 56.90
--- NOTE | 2025-01-16 17:21 | PM.CNOR ---
Assessment and Plan Assessment and plan (1) Closed pelvic fracture: Qualifiers: Encounter type: initial encounter Pelvic bone location: multiple parts Fracture alignment: with stable disruption of pelvic ring Qualified Code(s): S32.810A - Multiple fractures of pelvis with stable disruption of pelvic ring, initial encounter for closed fracture Code(s): S32.9XXA - Fracture of unspecified parts of lumbosacral spine and pelvis, initial encounter for closed fracture Status: Acute Assessment and Plan: New patient evaluation status post injury pelvic bone. The history, physical exam and radiographs reviewed with the patient. fall at home. No loss of consciousness. Type of fracture discussed in detail. Left superior and inferior pubic ramus fractures. Treatment options including operative and non operative treatment reviewed. Risks, benefits and alternatives of each treatment discussed in detail. The patient has declined surgical treatment. Risks of treatment decision discussed in detail. Potential problems with displacement of the fracture, loss of alignment, nonunion, malunion and dysfunction discussed in detail. The patient's questions were answered. They verbalized understanding and agreement. Conservative treatment with immobilization, ice, pain control, mechanical DVT prophylaxis. activity as tolerated by pain. May be weight-bearing as tolerated bilateral legs. PT/OT. Plan for home with home health when medically stable. History of Present Illness HPI Consult date: 01/16/25 Requesting physician: Merrill Flores MD Chief complaint: Pubic rami fractures Narrative: 74-year-old woman with loss of balance and fall at home yesterday. Fall onto left side. Left hip pain. Unable to bear weight. Found to have left pelvis fracture and admitted for further care. Denies any prior problems with left hip. complains of pain left pelvis and hip. Denies numbness or tingling. Review of Systems Constitutional: Constitutional: Denies fever(s) Eyes: Eyes: Denies blurry vision ENT: Reports Normal hearing present Cardiovascular: Cardiovascular: Denies chest pain and Denies dyspnea Respiratory: Respiratory: Denies dyspnea and Denies wheezing Gastrointestinal: Gastrointestinal: Denies abdominal pain Genitourinary: Genitourinary: Denies urinary urgency Musculoskeletal: Musculoskeletal: Reports as per HPI and Denies numbness Integumentary/Breasts: Skin/Breast: Denies changing lesions and Denies sores Neurologic: Reports Normal hearing present, Denies behavioral changes, Denies confusion, Denies numbness and Denies convulsions Psychiatric: Psychiatric: Denies behavioral changes, Denies confusion and Denies hallucinations Endocrine: Endocrine: Denies heat intolerance Hematologic/Lymphatic: Hematologic/Lymphatic: Denies easy bleeding Allergic/Immunologic: Allergic/Immunologic: Denies wheezing PMFSH Past Medical History Medical History COPD (chronic obstructive pulmonary disease) Atrial fibrillation Diabetes type 2, controlled Restless leg syndrome Chronic kidney disease, stage IV (severe) Hyperlipidemia Vitamin D deficiency Raynaud's disease Anemia Depression Degenerative disc disease Cervical neck fusion in 2006 Arthritis Musculoskeletal disorder Bilateral rotator cuff surgery, bilateral carpal tunnel, arthritis, left thumb subluxed Ferrell's esophagus Pneumonia Hypertension Heart murmur Migraines Last migraine 2006 Glaucoma Cataracts, bilateral Surgical History Surgical History History of cervical spinal surgery History of orthopedic surgery Lower back disc removal 1986, repair of spinal leak 1987 History of appendectomy History of tonsillectomy Family History Family History Sibling Family history of thyroid disease Family history of obesity Family history of osteoporosis Family history of migraine headaches Hypertension Family history of elevated blood lipids Family history of alcoholism Family history of diabetes mellitus in first degree relative Family history of coronary artery disease Father Family history of osteoporosis Family history of lung cancer Mother Family history of osteoarthritis Family history of malignant melanoma Family history of atrial fibrillation Social History Social History Social History: Surrogate medical decision maker: Code status: Full code. Smoking status: Never smoker Second hand tobacco smoke exposure: No Alcohol intake: never Substance use: never Substance use type: does not use Other substance usage details: cbd gummies without thc Do You Feel Safe in your Home?: Yes Lack of Transportation: No Lack of Food: Never True Current Housing: I Have Housing Concerned About Future Housing: No Difficulty Paying Gas/Electric Bills: No Difficulty Paying for Meds: No Currently Unemployed: No Education: Associate Degree Difficulty w/ Childcare or Family Care: No Living arrangements: with family Spiritual care concerns: No Meds Home Medications and Allergies Home Medications ?Medication ?Instructions ?Recorded ?Confirmed ?Type bupropion HCl 100 mg tablet 100 mg PO BID 12/24/20 01/15/25 History cholecalciferol (vitamin D3) 50 50 mcg PO BID 12/24/20 01/15/25 History mcg (2,000 unit) tablet (Vitamin D3) latanoprost 0.005 % eye drops 1 drp EACH EYE DAILY 12/24/20 01/15/25 History (Xalatan) meclizine 25 mg tablet 25 mg PO TID PRN dizziness #14 tabs 12/24/20 01/15/25 Rx pantoprazole 40 mg tablet,delayed 40 mg PO QAM 12/24/20 01/15/25 History release (Protonix) pravastatin 40 mg tablet 40 mg PO DAILY 12/24/20 01/15/25 History acetaminophen 325 mg tablet (Mapap 650 mg (2 x 325 mg) PO Q6H PRN 06/15/22 01/15/25 Rx (acetaminophen)) Mild Pain (1-3) Or Fever #30 tabs carvedilol 12.5 mg tablet (Coreg) 12.5 mg PO Q12HR #60 tabs 06/15/22 01/15/25 Rx peg [id number] 1 1 drp EACH EYE Q4H PRN Dry Eye(S) 06/15/22 01/15/25 Rx %-0.2 %-0.2 % eye drops #15 mL (Artificial Tears ([id number])) quetiapine 50 mg tablet 100 mg (2 x 50 mg) PO HS #30 tabs 06/15/22 01/15/25 Rx cetirizine 10 mg tablet (Zyrtec) 10 mg PO DAILY PRN allergy symptoms 08/20/23 01/15/25 History amlodipine 5 mg tablet (Norvasc) 5 mg PO QAM #90 tabs 04/19/24 01/15/25 Rx furosemide 20 mg tablet 20 mg PO .COMPLEX 05/11/24 01/15/25 History calcitriol 0.25 mcg capsule See Rx Instructions .Route 06/30/24 01/15/25 Rx .COMPLEX #360 caps allopurinol 100 mg tablet 100 mg PO DAILY 10/14/24 01/15/25 History clopidogrel 75 mg tablet 75 mg PO DAILY 10/14/24 01/15/25 History fluticasone propionate 50 1 spray intranasal DAILY PRN 10/14/24 01/15/25 History mcg/actuation nasal allergy symptoms spray,suspension (24 Hour Allergy Relief) ondansetron 4 mg disintegrating 4 mg PO Q6H PRN nausea and vomiting 10/14/24 01/15/25 History tablet semaglutide 0.25 mg or 0.5 mg (2 0.5 mg subcut WEEKLY 10/14/24 01/15/25 History mg/3 mL) subcutaneous pen injector (Ozempic) sodium chloride 0.65 % nasal drops 1 drp intranasal BID PRN dry nasal 10/14/24 01/15/25 History passages vit C 250 mg-vit E 90 mg-zinc 40 1 tablet PO ONCE 10/14/24 01/15/25 History mg-copper 1 [id number] capsule (PreserVision AREDS-2) Allergies Allergy/AdvReac Type Severity Reaction Status Date / Time adhesive tape Allergy Mild Unknown Verified 01/15/25 07:57 Influenza Virus Vaccines Allergy Mild Hives Verified 01/15/25 07:57 Iodinated Contrast Media Allergy Mild kidney Verified 01/15/25 07:57 failure smallpox vaccine,live Allergy Mild Hives Verified 01/15/25 07:57 Sulfa (Sulfonamide Allergy Mild HIVES Verified 01/15/25 07:57 Antibiotics) sulfamethoxazole Allergy Mild HIVES Verified 01/15/25 07:57 cyclobenzaprine Allergy Unknown Unknown Verified 01/15/25 07:57 fluoxetine Allergy Unknown Unknown Verified 01/15/25 07:57 latex Allergy Unknown Unknown Verified 01/15/25 07:57 meperidine Allergy Unknown Unknown Verified 01/15/25 07:57 naproxen Allergy Unknown Unknown Verified 01/15/25 07:57 trimethoprim Allergy Unknown Unknown Verified 01/15/25 07:57 egg AdvReac Intermediate Unknown Verified 01/15/25 07:57 bethanechol AdvReac Mild INTESTINAL Verified 01/15/25 07:57 PROBLEMS SEE NSG NOTES Allergy Unknown Unknown Uncoded 10/15/24 12:04 Vital Signs Vital Signs - 24 hr 01/15/25 20:00 01/15/25 21:18 01/15/25 21:26 Temperature Pulse Rate 81 81 Respiratory Rate 18 Blood Pressure Pulse Oximetry 96 Oxygen Delivery Room Air Room Air Fraction of Inspired Oxygen 21 01/15/25 21:28 01/15/25 21:35 01/16/25 06:52 Temperature 97.5 F L 97.2 F L Pulse Rate 79 86 80 Respiratory Rate 18 18 16 Blood Pressure 150/51 H 140/56 L Pulse Oximetry 96 95 Oxygen Delivery Fraction of Inspired Oxygen 01/16/25 08:00 01/16/25 09:10 01/16/25 09:13 Temperature Pulse Rate 87 90 87 Respiratory Rate 18 18 18 Blood Pressure Pulse Oximetry 95 Oxygen Delivery Room Air Fraction of Inspired Oxygen 21 01/16/25 14:00 01/16/25 14:35 01/16/25 14:40 Temperature 97.6 F Pulse Rate 96 87 87 Respiratory Rate 17 18 18 Blood Pressure 131/52 L Pulse Oximetry 100 Oxygen Delivery Fraction of Inspired Oxygen Exam Const: General: No confusion Orientation/consciousness: No confusion HENMT: Head: normal to inspection, normocephalic and atraumatic Eyes: Conjunctivae: conjunctivae normal Sclera: sclerae normal Neck: Neck: supple and nontender Chest: Chest palpation & inspection: normal inspection of the chest Resp: Effort & Inspection: normal respiratory effort and no audible wheezes Cardio: Rate: regular rate Rhythm: regular rhythm : General: Yes deferred Skin: General skin exam: no rashes or lesions noted Neuro: General: No confusion Extrem: General: capillary refill normal Right upper extremity: normal to inspection Left upper extremity: normal to inspection Right lower extremity: normal to inspection, hip/thigh Details: normal to inspection and normal ROM; no tenderness and no swelling, knee Details: no tenderness and no swelling, ankle Details: normal ROM (Able to flex and extend the ankle) and foot Details: vascular exam Details: dorsalis pedis pulse present and normal capillary refill, tendon exam (Moves all toes) and motor-sensory exam Details: light-touch normal Location: in all toes Left lower extremity: hip/thigh Details: tenderness Location: of the hip Location: laterally and anteriorly, swelling Location: of the hip and abnormal ROM Details: pain with passive ROM (Full motion deferred secondary to fracture) Details: with flexion, with internal rotation and with external rotation, ankle (no calf tenderness) Details: normal ROM (Able to flex/ extend ankle) and foot Details: toes with normal ROM (Moves all toes), vascular exam Details: dorsalis pedis pulse present and normal capillary refill and motor-sensory exam light-touch normal in all toes; no tenderness Psych: Affect: normal affect Results Labs 01/15/25 08:29 01/15/25 08:29 Labs: Abnormal lab results 01/16/25 Range/Units 06:16 TIBC 258 L (261-462) ug/dL H & H 01/15/25 Range/Units 08:29 Hgb 10.9 L D (12.0-15.0) g/dL Hct 33.3 L (37.0-47.0) % Coagulation 01/15/25 Range/Units 08:29 INR 1.0 All other labs normal. Diagnostic results Hip x-ray: image reviewed ( Pelvis and left hip radiographs show good alignment of the hip joint and mild degenerative changes.) Hip CT: image reviewed ( Pelvis CT shows mildly displaced fracture of the left superior and inferior pubic ramus) Fracture/Casting/Strapping Pre Procedure Consent was obtained, Procedures/risks were explained, Questions were answered, Correct patient identified and Correct side and site confirmed Episode of Care New episode Location: Left hip Fracture Care Pelvis/hip/femur Pelvis, Hip, Femur: CLOSED TX PELVIC RING FX
[2025-01-16] MEDS: PANTOPRAZOLE 40 MG TABLET PO (21:47)
[2025-01-17] VITALS (7 sets, daily range): BP systolic 147; BP diastolic 49; PULSE 73–78; RESP 16–20; TEMP 36.4; O2SAT 96–97
[2025-01-17] MEDS: IPRATROPIUM 0.5 MG/ALBUTEROL SULFATE 2.5 MG (BASE) AMPUL.NEB 3 ML INHALATION ×2 (01:50→07:18)
[2025-01-17 08:54] LABS: Hematocrit 30.1 % (37.0-47.0); Hemoglobin 9.7 g/dL (12.0-15.0); Immature Granulocyte Percent A 0.6 % (0-0.5); Lymphocytes Absolute Auto 1.11 K/mm3 (0.9-3.2); Mean Corpuscular HGB Conc 32.2 g/dl (32-36); Mean Corpuscular Hemoglobin 30.5 pg (26-34); Mean Corpuscular Volume 94.7 fl (80-100); Nucleated Red Blood Cells Absolute Auto 0.000 K/mm3 (0.0-0.012); Nucleated Red Blood Cells Perc 0.0 % (0.0-0.2); Platelet Count Result 199 k/mm3 (150-375); Red Blood Count 3.18 M/mm3 (4.2-5.4); White Blood Count 6.9 K/mm3 (4.5-10.0)
[2025-01-17 09:14] LABS: Alanine Aminotransferase 16 U/L (6-35); Albumin Level 3.5 g/dL (3.5-5.1); Alkaline Phosphatase 71 U/L (38-126); Anion Gap 7 mmol/L (4-12); Aspartate Amino Transferase 23 U/L (14-36); Bilirubin,Total 0.8 mg/dL (0.2-1.3); Blood Urea Nitrogen 23 mg/dL (7-17); Calcium 9.1 mg/dL (8.4-10.2); Carbon Dioxide 26 mmol/L (22-30); Chloride 99 mmol/L (98-107); Estimated Glomerular Filt Rate 35; Glucose 181 mg/dL (65-110); Potassium 3.8 mmol/L (3.4-5.0); Sodium 132 mmol/L (137-145); Total Protein 6.1 g/dL (6.3-8.2)
[2025-01-17] MEDS: CLOPIDOGREL BISULFATE 75 MG TABLET PO (11:04)
[2025-01-17] MEDS: ENOXAPARIN 40 MG/0.4 ML SYRINGE SUB-Q (11:05)
[2025-01-17] MEDS: PANTOPRAZOLE 40 MG TABLET PO (11:05)
[2025-01-17] MEDS: HYDROcodone/acetaminophen (*CRX) 5-325 MG TABLET 1 TAB PO (11:12)
--- NOTE | 2025-01-17 12:22 | PM.DS ---
DS: Admitting Diagnosis Discharge Date 01/17/25 Admitting Diagnosis Fall DS: Discharge Diagnosis Discharge Diagnosis (1) Closed pelvic fracture: Qualifiers: Encounter type: initial encounter Fracture alignment: with stable disruption of pelvic ring Pelvic bone location: multiple parts Qualified Code(s): S32.810A - Multiple fractures of pelvis with stable disruption of pelvic ring, initial encounter for closed fracture Code(s): S32.9XXA - Fracture of unspecified parts of lumbosacral spine and pelvis, initial encounter for closed fracture Status: Acute DS: Summary Hospital Course Hospital Course: 74 yo F with if fever, CKD stage 4, glaucoma, COPD from secondhand smoking, CHF with left ventricular positioning device presented to the ER after falling. Patient data general fall last night in her basement while doign some work, missed a step on the staircase and fell with head trauma and no loss of osnciousness. Noted a right hip pain after nausea. Otherwise denies any chest pain, no shortness for breath, nausea vomiting 100 pain no diarrhea or dysuria prior to episode. ER evaluation notable for vital signs stable within normal limits. Labs notable for hemoglobin 10.9 creatinine 1.53, which is baseline. CT pelvis showed fracture of the left superior and inferior pubic ramus the. Cervical spine CT showed severe cervical spondylosis C5-C6 laminectomies and C3-C7 anterior and see to C2 posterior spinal fusion CT head no acute changes. Patient was managed topical as below Left superior and inferior ramus fracture Following a mechanical fall CT pelvis reviewed PT/OT Ortho evaluated adn recommended conservative management Discharged home with home health. Patient declined SNF placement Discharge don PRN [place] x 10 tablets Afib Continue home meds monitor CKD IV avoid nephrotoxics monitor CHF with left ventricular partitioning device Continue home meds COPD from second hand smoking Continue PRN Duoneb HTN Titrate home meds with clinical course Time Spent with Patient Time attestation: Total time spent providing and/or coordinating discharge services: DS: Data Data Completed and Pending Labs on day of discharge: Labs from last 24 hours 01/17/25 08:49 WBC 6.9 RBC 3.18 L Hgb 9.7 L Hct 30.1 L MCV 94.7 MCH 30.5 MCHC 32.2 RDW 14.1 Plt Count 199 MPV 9.8 Immature Gran % (Auto) 0.6 H Neut % (Auto) 71.7 Lymph % (Auto) 16.[address] [place] % (Auto) 7.6 Eos % (Auto) 3.5 Baso % (Auto) 0.6 Lymph # (Auto) 1.11 [place] # (Auto) 0.5 Eos # (Auto) 0.2 Baso # (Auto) 0.0 Abs Immat Gran (auto) 0.04 H Absolute Neuts (auto) 5.0 Absolute Nucleated RBC 0.000 Nucleated RBC % 0.0 Sodium 132 L Potassium 3.8 Chloride 99 Carbon Dioxide 26 Anion Gap 7 BUN 23 H Creatinine 1.46 H Estim Creat Clear Calc Not Reportable Estimated GFR 35 L Glucose 181 H Calcium 9.1 Total Bilirubin 0.8 AST 23 ALT 16 Alkaline Phosphatase 71 Total Protein 6.1 L Albumin 3.5 Discharge Plan Discharge Attending physician on discharge: Octavio Torres Consulting providers: Darrion Stout Discharging Clinician: Octavio Torres Anticipated Discharge Date/Time: 01/17/25 12:13 Patient Disposition: Home with Home Health Service Activity: as tolerated Diet: as tolerated and regular Discharge Instructions: Care Coordination: Patient to have [facility] for PT/OT eval and treat, and long term. Their phone number is [phone], if you have any questions. They will contact you to schedule their visits. Patient Instructions: Antibiotic Form Patient Language: Nepali Stand Alone Forms: General Discharge Information Follow-up/Referrals: Yumiko,NEAL Alonzo [Primary Care Provider, Unknown] Referral Note: F/u with PCP in 3-5 day s Darrion Stout MD [Physician, Orthopedics] Referral Note: F/u with ortho as instructed Discharge Medications: New hydrocodone-acetaminophen 5-325 mg Tablet 1 tablet PO Q4H PRN (Reason: Pain Rated 4-6) 5 Days Qty: 12 0RF Continued latanoprost [Xalatan] 0.005 % Drops 1 drp EACH EYE DAILY pravastatin 40 mg Tablet 40 mg PO DAILY bupropion HCl 100 mg Tablet 100 mg PO BID pantoprazole [Protonix] 40 mg Tablet,Delayed Release (Dr/Ec) 40 mg PO QAM cholecalciferol (vitamin D3) [Vitamin D3] 50 mcg (2,000 unit) Tablet 50 mcg PO BID cetirizine [Zyrtec] 10 mg tablet 10 mg PO DAILY PRN (Reason: allergy symptoms) furosemide 20 mg tablet 20 mg PO .COMPLEX Rx Instructions: 20 mg orally; amlodipine [Norvasc] 5 mg Tablet 5 mg PO QAM Qty: 90 0RF meclizine 25 mg tablet 25 mg PO TID PRN (Reason: dizziness) Qty: 14 0RF allopurinol 100 mg tablet 100 mg PO DAILY clopidogrel 75 mg tablet 75 mg PO DAILY Ozempic 0.25 mg or 0.5 mg (2 mg/3 mL) pen injector 0.5 mg SUBCUT WEEKLY fluticasone propionate [24 Hour Allergy Relief] 50 mcg/actuation spray,suspension 1 spray intranasal DAILY PRN (Reason: allergy symptoms) Rx Instructions: administer into each nostril ondansetron 4 mg tablet,disintegrating 4 mg PO Q6H PRN (Reason: nausea and vomiting) sodium chloride 0.65 % drops 1 drp intranasal BID PRN (Reason: dry nasal passages) PreserVision AREDS-2 250-90-40-1 mg capsule 1 tablet PO ONCE calcitriol 0.25 mcg capsule See Rx Instructions .ROUTE .COMPLEX Qty: 360 3RF Dose Instruction: TAKE ONE CAPSULE BY MOUTH CAPSULE 3 TIMES WEEKLY. TAKE ON MONDAYS, WEDNESDAYS, AND FRIDAYS. Rx Instructions: TAKE ONE CAPSULE BY MOUTH CAPSULE 3 TIMES WEEKLY. TAKE ON MONDAYS, WEDNESDAYS, AND FRIDAYS. acetaminophen [Mapap (acetaminophen)] 325 mg Tablet 650 mg PO Q6H PRN (Reason: Mild Pain (1-3) Or Fever) Qty: 30 0RF quetiapine 50 mg Tablet 100 mg PO HS Qty: 30 0RF Artificial Tears(sc-[id number]-arzc) 1-0.2-0.2 % Drops 1 drp EACH EYE Q4H PRN (Reason: Dry Eye(S)) Qty: 15 0RF carvedilol [Coreg] 12.5 mg Tablet 12.5 mg PO Q12HR Qty: 60 0RF Date of admission: 01/15/25 09:30 Primary Care Provider: KayleighCheri Admitting Provider: Octavio Torres Attending physician on admission: Octavio Torres Condition: Stable
== END 2025-01-17 14:32 | disposition home health service (06) ==
LOC: ANHED 08:23 → ANH3MEDSUR 09:58
PROVIDERS: Admitting Provider Internal Medicine; Emergency Provider Emergency Medicine; PCP Nurse Practitioner Family; Visit Provider Internal Medicine
DX: S32.810A Multiple fractures of pelvis with stable disruption of pelvic ring, initial encounter for closed fracture (principal); M25.512 Pain in left shoulder; W18.30XA Fall on same level, unspecified, initial encounter; J44.9 Chronic obstructive pulmonary disease, unspecified; I48.91 Unspecified atrial fibrillation; N18.4 Chronic kidney disease, stage 4 (severe); E11.22 Type 2 diabetes mellitus with diabetic chronic kidney disease; E78.5 Hyperlipidemia, unspecified; E55.9 Vitamin D deficiency, unspecified; D64.9 Anemia, unspecified; I13.0 Hypertensive heart and chronic kidney disease with heart failure and stage 1 through stage 4 chronic kidney disease, or unspecified chronic kidney disease; I50.9 Heart failure, unspecified; Z79.85 Long-term (current) use of injectable non-insulin antidiabetic drugs; F32.A Depression, unspecified; K22.70 Barrett's esophagus without dysplasia; H40.9 Unspecified glaucoma; H26.9 Unspecified cataract; Z79.01 Long term (current) use of anticoagulants
CPT/HCPCS: 36415; 70450; 72125; 72192; 73030; 73502; 80053; 81003; 82728; 83540; 83550; 85025; 85610; 85730; 93005; 94640; 97161; 97165; 97530; 99285; A9270; G0378; J1650